=== PATIENT | female | born 1945 | race Caucasian/White ===

== ENCOUNTER 2023-07-05 14:07 | Outpatient (OUT) | payer MEDICARE, SELFPAY ==
--- NOTE | 2023-07-05 15:45 | PM.CN ---
Consult Note: HPI Data of Consult Patient: new to practice Consult date: 07/05/23 Requesting Physician: Adelfo Hansen MD Primary Care Provider: TRUE DAVIS Consult Narrative Reason for consult: Right hip, low back pain Narrative: this is a pleasant 78-year-old female who presents for evaluation. She notes worsening pain throughout her right hip that has been ongoing for years, but continues to worsen. She has had multiple lumbar surgeries, including fusion from L3-L5. She has undergone various injection modalities in the past, with limited relief. She engages in provider directed home exercises, with limited benefit. She otherwise denies adverse medication side effects or loss of bowel or bladder control. cc:: CC: Adelfo Hansen MD Review of Systems ROS Status of ROS 10 or more systems reviewed and unremarkable except as noted in history and below Meds Home Medications and Allergies Home Medications Medication Instructions Recorded Confirmed Type buprenorphine 5 mcg/hour weekly 1 patch transdermal QWEEK pain #4 07/05/23 Rx transdermal patch (Butrans) ea Exam Constitutional Common normals: no apparent distress, oriented x3 and healthy appearing Respiratory Common normals: normal respiratory effort Effort & inspection: able to speak in complete sentences Extremity Common normals: normal to inspection Other: tenderness to palpation throughout the right hip. Pain is elicited with flexion and extension of the right hip. Strength noted to be four out of five in the right quadriceps femoris. Neuro Common normals: oriented x3, CN's II-XII intact bilaterally and no focal motor deficits Psych Common normals: mental status grossly normal and cooperative Assessment and Plan Assessment and Plan (1) Lumbar postlaminectomy syndrome: (2) Osteoarthritis of right hip: Plan this is a pleasant 78-year-old female who presents for evaluation. She has failed physical and medical modalities, as listed above. Given her persistent right hip pain, I would like her to undergo a right hip x-ray for further information. She is in agreement with this plan. She may be a candidate for right hip injection or other spinal interventional modality at some point in the future. Medications were reviewed. I will have her try Butrans patch 5 mcg/h, as she has not had relief with many other modalities, including various muscle relaxants and neuropathic agents. She expressed understanding. She'll follow up after the imaging is completed.
== END 2023-07-05 14:08 | disposition home or self-care (01) ==
PROVIDERS: PCP Family Medicine; Visit Provider Anesthesiology
DX: M96.1 Postlaminectomy syndrome, not elsewhere classified (principal); M16.11 Unilateral primary osteoarthritis, right hip
CPT/HCPCS: G0463

== ENCOUNTER 2023-07-07 14:36 | Outpatient (OUT) | payer MEDICARE, SELFPAY ==
--- NOTE | 2023-07-07 14:50 | XR_ITS ---
The [address] [address] Patient Name: BOOKER DEJESUS MRN: [id number] date: 1945 Sex: F Assigned Patient Location: RAD Current Patient Location: [facility] Accession/Order Number: [id number] Exam Date: 07/07/2023 14:55 Report Date: 07/09/2023 13:19 At the request of: ANDRI GIEDRAITIS Procedure: XR hip RT min 2V EXAM: XR hip RT min 2V HISTORY: Right hip pain COMPARISON: None. TECHNIQUE: AP and lateral views of the right hip were obtained. FINDINGS/IMPRESSION: 1. There is mild joint space narrowing with marginal spurring at the right hip indicating osteoarthritis. 2. Mild enthesopathic changes are seen adjacent to the greater trochanter. 3. Surgical clips are seen at the right hemipelvis. Electronically authenticated by: JONAH FARMER Date: 07/09/2023 13:19
== END 2023-07-07 14:37 | disposition home or self-care (01) ==
PROVIDERS: PCP Family Medicine; Visit Provider Anesthesiology
DX: M25.551 Pain in right hip (principal)
CPT/HCPCS: 73502

== ENCOUNTER 2023-07-19 14:43 | Outpatient (OUT) | payer MEDICARE, SELFPAY ==
--- NOTE | 2023-07-19 16:03 | PM.CN ---
Consult Note: HPI Data of Consult Patient: new to practice Consult date: 07/19/23 Requesting Physician: Adelfo Hansen MD Primary Care Provider: TRUE DAVIS Consult Narrative Reason for consult: Right hip pain Narrative: Re 78yof who presents for assessment. Continues to have significant right hip pain. Right hip XR reviewed, significant for osteoarthritis. Continues to engage in provider directed home exercise program. Feels that butrans patch 5mcg/hr is somewhat beneficial, denies side effects. Gabapentin does not seem to help. cc:: CC: Adelfo Hansen MD Review of Systems ROS Status of ROS 10 or more systems reviewed and unremarkable except as noted in history and below Meds Home Medications and Allergies Home Medications Medication Instructions Recorded Confirmed Type buprenorphine 5 mcg/hour weekly 1 patch transdermal QWEEK pain #4 07/05/23 Rx transdermal patch (Butrans) ea acetaminophen 650 mg 1,300 mg PO Q8H PRN pain 07/07/23 07/07/23 History tablet,extended release (Arthritis Pain Relief (acetaminophen) ER) albuterol 90 mcg/actuation aerosol 90 mcg inhalation .every 4 hours 07/07/23 07/07/23 History inhaler PRN shortness of breath or wheezing alendronate 35 mg tablet 35 mg PO QWEEK 07/07/23 07/07/23 History amitriptyline 50 mg tablet 50 mg PO DAILY 07/07/23 07/07/23 History ascorbic acid (vitamin C) 500 mg 500 mg PO BID 07/07/23 07/07/23 History tablet,extended release (C Complex) aspirin 81 mg tablet,delayed 81 mg PO DAILY 07/07/23 07/07/23 History release (Adult Aspirin Regimen) atorvastatin 40 mg tablet 40 mg PO DAILY 07/07/23 07/07/23 History calcium carbonate 600 mg calcium 600 mg PO DAILY 07/07/23 07/07/23 History (1,500 mg) tablet (Calcium) carvedilol 25 mg tablet 25 mg PO BID 07/07/23 07/07/23 History cholecalciferol (vitamin D3) 50 200 mcg PO DAILY 07/07/23 07/07/23 History mcg (2,000 unit) tablet (Vitamin D3) cyclobenzaprine 10 mg tablet 10 mg PO QAM 07/07/23 07/07/23 History escitalopram oxalate 20 mg tablet 20 mg PO DAILY 07/07/23 07/07/23 History famotidine 20 mg tablet 20 mg PO DAILY 07/07/23 07/07/23 History fenofibrate 160 mg tablet 160 mg PO DAILY 07/07/23 07/07/23 History fexofenadine 180 mg tablet 180 mg PO DAILY 07/07/23 07/07/23 History gabapentin 600 mg tablet 600 mg PO TID 07/07/23 07/07/23 History hydralazine 100 mg tablet 100 mg PO TID 07/07/23 07/07/23 History awrtpzormtuej-wiiupzuipzoeb-ozbeyqzjgxaqn 2 cap PO 07/07/23 History 65 mg-100 mg-325 mg capsule levothyroxine 150 mcg capsule 150 mcg PO DAILY 07/07/23 07/07/23 History lisinopril 20 1 tab PO DAILY 07/07/23 07/07/23 History mg-hydrochlorothiazide 12.5 mg tablet magnesium 250 mg tablet 250 mg PO DAILY 07/07/23 07/07/23 History ksymetqf-bcw-dhzrl acid 0.4 1 tab PO DAILY 07/07/23 07/07/23 History mg-lycopene 300 mcg-lutein 250 mcg tablet (Centrum Silver) omeprazole 40 mg capsule,delayed 40 mg PO DAILY 07/07/23 07/07/23 History release oxybutynin chloride 10 mg 10 mg PO DAILY 07/07/23 07/07/23 History tablet,extended release 24 hr tizanidine 4 mg tablet 4 mg PO BID PRN muscle spasticity 07/07/23 07/07/23 History buprenorphine 7.5 mcg/hour weekly 1 patch transdermal Q7D #4 ea 07/19/23 Rx transdermal patch (Butrans) buprenorphine 7.5 mcg/hour weekly 1 patch transdermal QWEEK #4 ea 07/19/23 Rx transdermal patch (Butrans) Allergies Allergy/AdvReac Type Severity Reaction Status Date / Time adhesive tape Allergy Verified 07/07/23 08:13 Influenza Virus Vaccines Allergy Verified 07/07/23 08:13 lincomycin [From Lincocin] Allergy Verified 07/07/23 08:13 Penicillins Allergy Verified 07/07/23 08:13 Exam Constitutional Common normals: no apparent distress, oriented x3 and healthy appearing Respiratory Common normals: normal respiratory effort Effort & inspection: able to speak in complete sentences Back & Pelvis Other: Tender to palpation in right hip. Pain elicited with extension, lateral rotation, abduction. Gait nonantalgic. Extremity Common normals: normal to inspection Neuro Common normals: oriented x3, CN's II-XII intact bilaterally and no focal motor deficits Psych Common normals: mental status grossly normal and cooperative Assessment and Plan Assessment and Plan (1) Osteoarthritis of right hip: (2) Lumbar postlaminectomy syndrome: Plan Pleasant 78yof who presents for assessment. COntinues to have right hip pain. Imaging reviewed, as noted. Given symptoms and imaging, will have her scheduled for right hip injection. She is in agreement. Medications reviewed, will have her butrans increased to 7.5mcg/hr. She expressed understanding. Follow up after procedure.
== END 2023-07-19 14:44 | disposition home or self-care (01) ==
PROVIDERS: PCP Family Medicine; Visit Provider Anesthesiology
DX: M16.11 Unilateral primary osteoarthritis, right hip (principal); M96.1 Postlaminectomy syndrome, not elsewhere classified
CPT/HCPCS: G0463

== ENCOUNTER 2023-09-06 08:42 | Day surgery (SDC) | payer MEDICARE, SELFPAY ==
[2023-09-06 09:10] VITALS: BP 126/75; PULSE 82; RESP 14; TEMP 36.3; O2SAT 97
[2023-09-06 09:44] VITALS: BP 143/69; PULSE 85; RESP 18; O2SAT 96
[2023-09-06] MEDS: BUPIVACAINE HCL 0.25% PF 25 MG/10 ML VIAL 4 ML INJ (09:45)
[2023-09-06] MEDS: TRIAMCINOLONE ACETONIDE 40 MG/ML VIAL IM (09:46)
[2023-09-06] MEDS: LIDOCAINE HCL 2% PF 100 MG/5 ML VIAL INJ (09:46)
[2023-09-06] MEDS: IOHEXOL 240 MG/ML - 10 ML VIAL INJ (09:46)
--- NOTE | 2023-09-06 09:47 | W.PM.PROCNOT ---
Date of procedure: 09/06/23 Pre-op diagnosis: Right hip osteoarthritis Post-op diagnosis: same as pre-op Procedure: Procedure: Right hip injection Medications: Bupivacaine 0.25% 4cc, kenalog 40mg I explained the details of the procedure to the patient including the risks, benefits and alternatives. We had an informed discussion and the patient verbalized understanding and signed the consent form. All questions were answered appropriately.? A time out was performed.? After obtaining a comfortable supine position, the skin overlying the hip, subtrochanteric region, and joint space were prepped with alcohol. A sterile syringe containing the above medication was attached to a 25 guage, 3.5 inch spinal needle under strict aseptic technique. X ray was used to identify the joint space and the femoral neck on the right side.? The needle was than advanced through the subcutaneous tissue after local injection of 1% lidocaine.? The contents of the syringe were gently injected without any resistance into the joint space after contrast (isovue) outlined the appropriate area. The needle was removed and pressure was applied to the injection site to decrease the incidence of ecchymosis and hematoma formation.? A sterile bandage was applied. Post procedural instructions were given to the patient. Anesthesia: Local Surgeon: Adelfo Hansen Pathology: none sent Condition: stable Disposition: no change
== END 2023-09-06 09:53 | disposition home or self-care (01) ==
PROVIDERS: PCP Family Medicine; Visit Provider Anesthesiology
DX: M16.11 Unilateral primary osteoarthritis, right hip (principal)
CPT/HCPCS: 20610; 77002; Q9966

== ENCOUNTER 2023-09-23 13:22 | Outpatient (OUT) | payer MEDICARE, SELFPAY ==
--- NOTE | 2023-09-23 13:48 | PM.CN ---
Consult Note: HPI Data of Consult Patient: known to practice within the last 3 years Requesting Physician: Nisa Galarza NP Primary Care Provider: TRUE DAVIS Consult Narrative Reason for consult: f/u Narrative: Angela Ruth a pleasant 78 year old female presents for evaluation and management of chronic low back and right hip pain. Reports 75% pain relief and functional improvement after right hip injection. Patient reporting pain in mid to low back 4-5/10 today. Tolerating current medication regimen well without side effects. cc:: CC: Nisa Galarza NP Review of Systems ROS Status of ROS 10 or more systems reviewed and unremarkable except as noted in history and below Musculoskeletal Reports: back pain Meds Home Medications and Allergies Home Medications Medication Instructions Recorded Confirmed Type buprenorphine 5 mcg/hour weekly 1 patch transdermal QWEEK pain #4 07/05/23 09/06/23 Rx transdermal patch (Butrans) ea acetaminophen 650 mg 1,300 mg PO Q8H PRN pain 07/07/23 09/06/23 History tablet,extended release (Arthritis Pain Relief (acetaminophen) ER) albuterol 90 mcg/actuation aerosol 90 mcg inhalation .every 4 hours 07/07/23 09/06/23 History inhaler PRN shortness of breath or wheezing alendronate 35 mg tablet 35 mg PO QWEEK 07/07/23 09/06/23 History amitriptyline 50 mg tablet 50 mg PO DAILY 07/07/23 09/06/23 History ascorbic acid (vitamin C) 500 mg 500 mg PO BID 07/07/23 09/06/23 History tablet,extended release (C Complex) aspirin 81 mg tablet,delayed 81 mg PO DAILY 07/07/23 09/06/23 History release (Adult Aspirin Regimen) atorvastatin 40 mg tablet 40 mg PO DAILY 07/07/23 09/06/23 History calcium carbonate 600 mg calcium 600 mg PO DAILY 07/07/23 09/06/23 History (1,500 mg) tablet (Calcium) carvedilol 25 mg tablet 25 mg PO BID 07/07/23 09/06/23 History cholecalciferol (vitamin D3) 50 200 mcg PO DAILY 07/07/23 09/06/23 History mcg (2,000 unit) tablet (Vitamin D3) cyclobenzaprine 10 mg tablet 10 mg PO QAM 07/07/23 09/06/23 History escitalopram oxalate 20 mg tablet 20 mg PO DAILY 07/07/23 09/06/23 History famotidine 20 mg tablet 20 mg PO DAILY 07/07/23 09/06/23 History fenofibrate 160 mg tablet 160 mg PO DAILY 07/07/23 09/06/23 History fexofenadine 180 mg tablet 180 mg PO DAILY 07/07/23 09/06/23 History hydralazine 100 mg tablet 100 mg PO TID 07/07/23 09/06/23 History cfqvsyicgvubo-ahtcpchbcgweq-jyccbykvwzkbn 2 cap PO 07/07/23 History 65 mg-100 mg-325 mg capsule levothyroxine 150 mcg capsule 150 mcg PO DAILY 07/07/23 09/06/23 History lisinopril 20 1 tab PO DAILY 07/07/23 09/06/23 History mg-hydrochlorothiazide 12.5 mg tablet magnesium 250 mg tablet 250 mg PO DAILY 07/07/23 09/06/23 History wdzgwxdv-chd-goibq acid 0.4 1 tab PO DAILY 07/07/23 09/06/23 History mg-lycopene 300 mcg-lutein 250 mcg tablet (Centrum Silver) omeprazole 40 mg capsule,delayed 40 mg PO DAILY 07/07/23 09/06/23 History release oxybutynin chloride 10 mg 10 mg PO DAILY 07/07/23 09/06/23 History tablet,extended release 24 hr tizanidine 4 mg tablet 4 mg PO BID PRN muscle spasticity 07/07/23 09/06/23 History buprenorphine 7.5 mcg/hour weekly 1 patch transdermal Q7D #4 ea 07/19/23 09/06/23 Rx transdermal patch (Butrans) buprenorphine 7.5 mcg/hour weekly 1 patch transdermal QWEEK #4 ea 07/19/23 09/06/23 Rx transdermal patch (Butrans) buprenorphine 7.5 mcg/hour weekly 1 patch transdermal Q7D #4 ea 08/24/23 09/06/23 Rx transdermal patch (Butrans) Allergies Allergy/AdvReac Type Severity Reaction Status Date / Time adhesive tape Allergy Verified 09/06/23 09:06 Influenza Virus Vaccines Allergy Verified 09/06/23 09:06 lincomycin [From Lincocin] Allergy Verified 09/06/23 09:06 Penicillins Allergy Verified 09/06/23 09:06 Exam Constitutional Documenting provider has reviewed patient's vital signs: yes Common normals: no apparent distress, oriented x3, healthy appearing, alert and well nourished General appearance: cooperative HENMT Common normals: normocephalic, hearing grossly normal bilaterally and moist oral mucous membranes Head and scalp: normocephalic Eye Common normals: PERRL Pupil: PERRL Neck & C-Spine Common normals: full ROM General: normal visual inspection Chest Common normals: inspection of chest normal Respiratory Common normals: normal respiratory effort, no retractions and no use of accessory muscles Back & Pelvis Lumbar spine/lower back: ROM limited, pain with ROM and straight leg raise negative bilaterally Neuro Common normals: oriented x3, CN's II-XII intact bilaterally, moves all extremities, no focal motor deficits, no sensory deficits noted and deep tendon reflexes 2+ bilaterally Sensorium/orientation: alert Motor exam: strength 5/5 throughout and no movement abnormalities noted Psych Common normals: mental status grossly normal, thought process normal, cooperative, affect normal, speech normal and activity/motor behavior normal Speech: normal speech Thought process: normal thought process Results Additional Findings Additional findings: I have checked an [place] report on this patient today and there are no aberrancies noted in the prescribing history.?? A drug screen was completed and reviewed within the last year, and if there has not been a drug screen completed we ordered one today to monitor higher risk, state monitored pain medication use. As part of providing excellent, safe, comprehensive care, the following was completed at our patient's visit: 1. A medication reconciliation and review to ensure accurate knowledge of current/active medications, including asking our patients to inform us about any jvtc-dua-ugjkorq medications or herbal remedies/nutritional supplements/alternative remedies. 2. A review to specifically ensure our patients have had annual screening for: elevated body mass index (BMI), tobacco use, screening for depression, and screening for unhealthy alcohol use. When screening is concerning, patients are provided with education and the specific recommendation to discuss the concerning health issue and treatment options with their primary care provider. Assessment and Plan Assessment and Plan (1) Lumbar postlaminectomy syndrome: (2) Osteoarthritis of right hip: (3) Muscle spasm: (4) Chronic prescription opiate use: Assessment and Plan: I feel these medications are improving the patient's quality of life and allow them to tolerate activities of daily living as well as participate in recreational activity.? The patient does not report intolerable side effects. The patient is NOT opioid naive and non-pharmacologic and non-opioid treatment has failed to significantly relieve the patient's pain and improve functionality. The patient has a diagnosis that is related to a somatic or visceral pain etiology. ? ?? I reviewed with the patient the potential risks and side effects with the use of? opioid medications including but not limited to respiratory depression,? sedation, and even . I verified the patient has access to naloxone should? these effects occur. I advised the patient to avoid the use of any other? sedation substances including alcohol, THC, and benzodiazepines while? taking opioid medications due to the risk of compounding side effects and? detrimental outcomes. I reviewed the [employer], pain treatment agreement, urine? drug screen, and opioid start talking forms. The patient was advised to let? their family know they had Naloxone in case they would need to administer? the medication.? ?? A drug screen was completed within the last year, and no aberrancies were noted regarding their use of controlled substances. The patient understands they are subject to the terms and conditions of the pain contract that they have signed. ? ?? I have checked an [place] report on this patient today and there are no aberrancies noted in the prescribing history.? Plan increase tizanidine to 4mg during the day PRN, continue 8mg HS continue butrans 5mcg patch weekly tolerating well without side effects TENS unit for low back spasms and myalgia f/u 3 months for medication management
== END 2023-09-23 13:23 | disposition home or self-care (01) ==
PROVIDERS: PCP Family Medicine; Visit Provider Nurse Practitioner
DX: M96.1 Postlaminectomy syndrome, not elsewhere classified (principal); M16.11 Unilateral primary osteoarthritis, right hip; M62.838 Other muscle spasm; Z79.899 Other long term (current) drug therapy
CPT/HCPCS: G0463

== ENCOUNTER 2023-12-30 10:58 | Outpatient (OUT) | payer MEDICARE, SELFPAY ==
--- OUTSIDE RECORDS SUMMARY | 2023-12-30 11:20 | XMS_ITS | CCD ---
Author Name Unknown Address [address] [place] [address] Organization [facility] Care Team Providers Care Emissions Testing And Repair Technician Name Role Phone KALIA GILL Unavailable Unavailable RENA HERNANDEZ Unavailable Unavailabl e KALIA GILL H Unavailable Unavailable LENNY PEDRAZA Unavailable Unavailable AUDREY HORN Unavailable Unavailable AUDREY HORN Unavailable Unavailable LENNY PEDRAZA Unavailable Unavailable BAI CAO Primary Care Unavailable BIA CAO Primary Care Unavailable Jade GARCIA, Adelfo Arredondo Attending Unavailable Jade GARCIA, Adelfo Arredondo Attending Unavailable Jade GARCIA, Adelfo Arredondo Attending Unavailable LALIT RICHARD Attending Unavailable NASH BIA F Referring Unavailable BIA CAO Primary Care Unavailable JOHN JOHNSON Referring Unavailable BIA CAO Primary Care Unavailable Nash GARCIA, Bia Mccormick Primary Care Provider Jacob Viveros Unavailable Unavailable Bia Cao MD Primary Care Provider BIA CAO Attending Unavailable BIA CAO Attending Unavailable SANTO GARCIA Attending Unavailable ELMER PETTIT Attending Unavailable NASH, BIA F Referring Unavailable RIA SNYDER Attending Unavailable NASH BIA F Referring Unavailable RIA SNYDER Attending Unavailable NASH BIA F Referring Unavailable BIA CAO F Attending Unavailable ELMER PETTIT Attending Unavailable NASH, BIA F Referring Unavailable RIA SNYDER Attending Unavailable NASH, BIA F Referring Unavailable ELMER PETTIT Attending Unavailable NASH, BIA F Referring Unavailable RIA SNYDER Attending Unavailable NASH BIA F Referring Unavailable RIA SNYDER Attending Unavailable NASH, BIA F Referring Unavailable Allergies Allergy Classification Reported Allergen(s) Allergy Type Date of Onset Reaction(s) Facility (4 sources) Adhesive agent; Translations: [ADHESIVE] Propensity to adverse reactions to drug (disorder) 11-04-20 16 [facility] Repository (5 sources) aspartame; Translations: [ASPARTAME] Drug Allergy 02-13-20 17 Other (See Comments), Unknown [facility] Repository (5 sources) clavulanic acid; Translations: [CLAVULANIC ACID] Drug Allergy 02-13-20 17 [facility] Repository (1 source) egg white (chicken) allergenic extract; Translations: [EGG WHITE] Drug Allergy 08-14-20 11 [facility] Repository (5 sources) lincomycin; Translations: [LINCOMYCIN] Drug Allergy 08-14-20 11 Anaphylaxis, [facility] Repository (4 sources) Lincosamides (Antibiotic); Translations: [LINCOSAMIDES] Propensity to adverse reactions to drug (disorder) 02-13-20 17 Anaphylaxis [facility] Repository (4 sources) oxaprozin; Translations: [OXAPROZIN] Drug Allergy 11-04-20 16 [facility] Repository (5 sources) Penicillins; Translations: [PENICILLINS] Propensity to adverse reactions to drug (disorder) 11-04-20 16 [facility] Repository (4 sources) INFLUENZA VIRUS VACCINES; Translations: [INFLUENZA VIRUS VACCINES] Propensity to adverse reactions to drug (disorder) 02-13-20 17 Swelling [facility] Repository (5 sources) CLEMIZOLE; Translations: [CLEMIZOLE] Propensity to adverse reactions to drug (disorder) 02-13-20 17 [facility] Repository (5 sources) AMOXICILLIN-POT CLAVULANATE; Translations: [AMOXICILLIN-POT CLAVULANATE] Propensity to adverse reactions to drug (disorder) 08-14-20 11 [facility] Repository (3 sources) chicken allergenic extract; Translations: [POULTRY] Drug Allergy 03-02-20 23 [facility] Repository (3 sources) egg shell membrane; Translations: [EGGSHELL MEMBRANE] Propensity to adverse reactions to food (disorder) 11-04-20 16 [facility] Repository (4 sources) Indomethacin; Translations: [INDOMETHACIN] Drug Allergy 05-02-20 21 Hypotension, Unknown [facility] Repository (4 sources) Sulfamethoxazole / Trimethoprim; Translations: [SULFAMETHOXAZOLE-T RIMETHOPRIM] Drug Allergy 10-22-20 Hives [facility] Repository (3 sources) Sulfonamides (Antibiotic); Translations: [SULFA (SULFONAMIDE ANTIBIOTICS)] Propensity to adverse reactions to drug (disorder) 11-11-20 22 Hives [facility] Repository (4 sources) OTHER; Translations: [OTHER] Propensity to adverse reactions (disorder) 02-13-20 17 Other (See Comments), Swelling [facility] Repository (1 source) Influenza Vaccines Drug Allergy 06-04-20 23 Rash [facility] (1 source) Lincomycin Drug Allergy 12-01-19 22 Unknown [facility] (1 source) Sulfonamides (Antibiotic) Drug Intolerance 11-11-20 [facility] (1 source) Eggs Or Egg-Derived Products Drug Allergy 08-14-20 11 Swelling, Unknown [facility] (1 source) Poultry Meal Propensity to adverse reactions 03-02-20 [facility] (1 source) Wound Dressing Adhesive Drug Allergy 06-04-20 Rash [facility] Medications Current Medications Medication Drug Class(es) Dates Sig (Normalized) Sig (Original) acetaminophen 500 mg oral tablet (1 source) take 2 tablets by mouth every six hours as needed for pain acetaminophen (TYLENOL EXTRA STRENGTH) 500 mg tablet Take 2 tablets (1,000 mg total) by mouth every 6 (six) hours as needed for pain. 0 Active acetaminophen 250 mg / aspirin 250 mg / caffeine 65 mg oral tablet (1 source) Platelet Aggregation Inhibitor, Nonsteroidal Anti-inflammatory Drug, Central Nervous System Stimulant, Methylxanthine take 1 tablet by mouth every six hours as needed for headache aspirin-acetaminop hen-caffeine (EXCEDRIN MIGRAINE) 250-250-65 mg per tablet Take 1 tablet by mouth every 6 (six) hours as needed for headaches. 0 Active acetaminophen 325 mg / butalbital 50 mg / caffeine 40 mg oral tablet (2 sources) Barbiturate, Central Nervous System Stimulant, Methylxanthine Start: 04-23-2023 take 1 tablet by mouth every four hours as needed butalbital-acetami nophen-caffeine 50-325-40 MG tablet Take 1 tablet by mouth every 4 (four) hours if needed. 0 04/23/2023 Active [id number] 200 actuat albuterol 0.09 mg/actuat metered dose inhaler (2 sources) beta2-Adrenergic Agonist Start: 06-04-2023 take 2 puff(s) by inhalation every four hours albuterol HFA 90 mcg/act inhaler Indications: Mild intermittent asthma without complication (CMS/HCC) Inhale 2 puffs every 4 (four) hours. 18 g 11 06/04/2023 Active take 2 puff(s) by in halation every four hours as needed for wheezing albuterol (PROVENTIL HFA;VENTOLIN HFA) 9 0 mcg/actuation inhaler Inhale 2 puffs every 4 (four) hours as needed for wheezing or shortness of breath. PRO AIR 0 Active alendronic acid 70 mg oral tablet (3 sources) Bisphosphonate Start: 12-13-2023 take 1 tablet by mouth in the morning alendronate (FOSAMAX) 70 mg tablet Take 1 tablet (70 mg total) by mouth every 7 days. In a.m. with water on empty stomach, nothing else by mouth and remain upright for 30min. STOP old dose 90 tablet 3 12/13/2023 Active Start: 07-21-2023 alendronate (F OSAMAX) 35 mg tablet take 1 tablet by mouth every 7 days IN THE MORNING 30 MINUTES before FIRST FOOD, BEVERAGE, OR MEDICATION with 6 to 8 ounce(s) OF WATER 12 tablet 3 07/21/2023 Active take 1 tablet by margo th once daily alendronate (Fosamax) 35 MG tablet 1 tablet 30 minutes before the first food, beverage or medicine of the day with plain water Orally weekly 0 Active amitriptyline hydrochloride 50 mg oral tablet (2 sources) Tricyclic Antidepressant Start: 11-17-2023 End: 11-16-2024 take 1 tablet by mouth at bedtime amitriptyline (Elavil) 50 MG tablet Indications: Primary insomnia Take 1 tablet (50 mg) by mouth at bedtime 90 tablet 3 11/17/2023 11/16/2024 Active ascorbic acid 1000 mg oral tablet (2 sources) Vitamin C Ascorbic Acid (vitamin C) 1000 MG tablet 1 (one) time each day at the same time. 0 Active take 2 tablets by mouth in the m orning ascorbic acid (VITAMIN C) 500 mg tablet Take 2 tablets (1,000 mg total) by mouth in the morning. 0 Active aspirin 81 mg delayed release oral tablet (2 sources) Platelet Aggregation Inhibitor, Nonsteroidal Anti-inflammatory Drug take 1 tablet by mouth in the morning aspirin 81 MG EC tablet Take 81 mg by mouth in the morning. 0 Active atorvastatin 40 mg oral tablet (2 sources) HMG-CoA Reductase Inhibitor Start: 2021 take 1 tablet by mouth in the morning atorvastatin (LIPITOR) 40 mg tablet Take 1 tablet (40 mg total) by mouth in the morning. 0 03/15/2022 Active benzonatate 200 mg oral capsule (1 source) Non-narcotic Antitussive Start: 2023 take 1 capsule by mouth three times daily as needed for cough benzonatate (TESSALON PERLES) 200 mg capsule TAKE 1 CAPSULE BY MOUTH THREE TIMES A DAY NEEDED FOR COUGH FOR UP TO 7 DAYS 0 11/23/2023 Active 168 hr buprenorphine 0.0075 mg/hr transdermal system (2 sources) Partial Opioid Agonist Start: 2022 apply 1 dose transdermal route every week buprenorphine (BUTRANS) 7.5 mcg/hour patch weekly Place 1 patch on the skin once a week. 0 07/20/2023 Active calcium carbonate 1500 mg / cholecalciferol 800 unt oral tablet (2 sources) Vitamin D Calcium Carb-Cholecalcifer ol 600-20 MG-MCG tablet Take 600 mg by mouth at bedtime. 0 Active carvedilol 25 mg oral tablet (2 sources) alpha-Adrenergic To, beta-Adrenergic To Start: 2022 take 1 tablet by mouth in the morning, then take 1 tablet by mouth at bedtime carvediloL (COREG) 25 mg tablet Indications: Essential hypertension Take 1 tablet (25 mg total) by mouth in the morning and 1 tablet (25 mg total) before bedtime. 180 tablet 3 12/04/2022 Active carvedilol (Core g) 25 MG tablet every 12 (twelve) hours. 0 Active cholecalciferol 0.025 mg ora l tablet (2 sources) Vitamin D cholecalciferol (Vitamin D-3) 25 MCG (1000 UT) tablet 1,000 Units in the morning. Take before meals. 0 Active cholecalciferol, vitamin D3, (VITAMIN D3) 1,000 units tablet Indications: vitamin D deficiency 1 tablet (1,000 Units total) before breakfast Indications: low vitamin D levels. 0 Active ciprofloxacin 500 mg oral tablet (1 source) Quinolone Antimicrobial Start: 11-23-2023 take 1 tablet by mouth at bedtime ciprofloxacin HCl (CIPRO) 500 mg tablet TAKE 1 TABLET (500 MG) BY MOUTH IN THE MORNING AND BEFORE BEDTIME FOR 7 DAYS 0 11/23/2023 Active escitalopram 20 mg oral tablet (2 sources) Serotonin Reuptake Inhibitor Start: 12-15-2023 End: 12-14-2024 take 1 tablet by mouth at mealtime escitalopram (Lexapro) 20 MG tablet Indications: Anxiety Take 1 tablet (20 mg) by mouth in the evening. Take with meals 100 tablet 3 12/15/2023 12/14/2024 Active take 1 tablet by margo th once daily at dinner escitalopram (LEXAPRO) 20 mg tablet Indications: major depressive disorder Take 1 tablet (20 mg total) by mouth daily with dinner Indications: major depressive disorder. 0 Active famotidine 20 mg oral tablet (2 sources) Histamine-2 Receptor Antagonist Start: 11-29-2023 take 1 tablet by mouth once daily famotidine (PEPCID) 20 mg tablet Take 1 tablet (20 mg total) by mouth nightly. 90 tablet 3 11/29/2023 Active fenofibrate 160 mg oral tablet (2 sources) Peroxisome Proliferator Receptor alpha Agonist Start: 10-26-2023 End: 10-25-2024 take 1 tablet by mouth in the morning fenofibrate (Triglide) 160 MG tablet Indications: Hyperlipidemia, unspecified hyperlipidemia type (CMS/HCC) Take 1 tablet (160 mg) by mouth in the morning. 100 tablet 3 10/26/2023 10/25/2024 Active fexofenadine hydrochloride 180 mg oral tablet (2 sources) Histamine-1 Receptor Antagonist fexofenadine (Ally Allergy) 180 MG tablet 1 (one) time each day at the same time. 0 Active fluticasone propionate 0.05 mg/actuat metered dose nasal spray (2 sources) Corticosteroid Start: 08-23-2023 End: 08-22-2024 take 1-2 spray(s) nasal route in the morning fluticasone (Flonase) 50 MCG/ACT nasal spray Indications: Allergic rhinitis due to pollen, unspecified seasonality Administer 1-2 sprays into each nostril in the morning. Shake gently. Before first use, prime pump. After use, clean tip and replace cap.. 16 g 2 08/23/2023 08/22/2024 Active Start: 08-23-2023 End: 08-22-2024 fluticasone propionate (FLON ASE) 50 mcg/actuation nasal spray 1-2 sprays in the morning. 0 08/23/2023 08/22/2024 Active hydrALAZINE hydrochloride 100 mg oral tablet (2 sources) Arteriolar Vasodilator Start: 07-26-2023 take 1 tablet by mouth once daily hydrALAZINE (APRESOLINE) 100 mg tablet Indications: Essential hypertension Take 1 tablet (100 mg total) by mouth Daily at 0700. Take one three times a day may take an additional 50mg daily if Systolic BP is greater than 170 120 tablet 11 08/05/2023 Active hydroCHLOROthiazide 12.5 mg / lisinopril 20 mg oral tablet (2 sources) Thiazide Diuretic, Angiotensin Converting Enzyme Inhibitor Start: 12-06-2023 take 1 tablet by mouth in the morning lisinopril-hydroC HLOROthiazide 20-12.5 MG tablet Indications: Essential hypertension (CMS/HCC) Take 1 tablet by mouth in the morning. 100 tablet 3 12/06/2023 Active Start: 06-01-2023 take 1 tablet by once in the morning lisinopril-hydroCHLOROthiazide (ZESTORET IC) 20-12.5 mg per tablet Indications: Essential hypertension Take 1 tablet by mouth in the morning. 90 tablet 3 06/01/2023 Active L.acidoph/B.animalis/B.longu m (FLORAJEN DIGESTION ORAL) (1 source) take 1 tablet by mouth in the morning L.acidoph/B.animalis/B.longum (FLORAJEN DIGESTION ORAL) Take 1 tablet by mouth in the morning. 0 Active lactobacillus acidophilus 16 mg oral capsule (1 source) Lactobacillus (F raven Women) capsule as directed Orally 0 Active levothyroxine sodium 0.15 mg oral tablet (2 sources) yrox ine Star t: 01-21 take 1 tablet by mouth in the morning levothyroxine (Synthroid, Levoxyl) 150 MCG tablet 1 tablet in the morning on an empty stomach Orally Wed thru Sat, skip Wednesday 0 02/10/2023 Active Magnesium (2 sources) take 500 mg by mouth in the morning MAGNESIUM PO Take 500 mg by mouth in the morning. 0 Active take 2 tablets by mouth in the m orning magnesium 250 mg tablet Indications: for migraine prevention Take 2 tablets (500 mg total) by mouth in the morning. Indications: for migraine prevention. At supper time. 0 Active meclizine hydrochloride 25 mg oral tablet (1 source) Antiemetic meclizine (Antiv ert) 25 MG tablet Take 25 mg by mouth. 0 Active multivitamin with minerals (Centrum) 9-200 mg-mcg tablet split tablet (1 source) multivitamin wit h minerals (Centrum) 9-200 mg-mcg tablet split tablet multivitamin Multiple Vitamins 0 Active NIFEdipine 60 mg osmotic 24 hr extended release oral tablet (2 sources) Dihydropyridine Calcium Channel To Start: 2022 take 1 tablet by mouth every twenty-four hours in the morning NIFEdipine XL (Procardia XL) 60 MG 24 hr tablet Take 60 mg by mouth in the morning. 0 04/23/2023 Active omeprazole 40 mg delayed release oral capsule (2 sources) Proton Pump Inhibitor Start: 2023 take 1 capsule by mouth in the morning omeprazole (PriLOSEC) 40 mg capsule Indications: Gastroesophageal reflux disease, unspecified whether esophagitis present Take 1 capsule (40 mg total) by mouth in the morning. 180 capsule 3 11/29/2023 Active 24 hr oxybutynin chloride 10 mg extended release oral tablet (2 sources) Cholinergic Muscarinic Antagonist Start: 2019 take 1 tablet by mouth once daily at breakfast oxybutynin XL (DITROPAN-XL) 10 mg 24 hr tablet Take 1 tablet (10 mg total) by mouth daily with breakfast. 0 11/21/2020 Active take 1 tablet by margo th every twenty-four hours in the morning oxybutynin XL (Ditropan-XL) 10 MG 24 hr tablet Take 10 mg by mouth in the morning. 0 Active therapeutic multivitamin (THERAGRAN) tablet (1 source) take 1 tablet by mouth once daily at dinner therapeutic multivitamin (THERAGRAN) tablet Take 1 tablet by mouth daily with dinner. 0 Active tiZANidine 4 mg oral tablet (2 sources) Central alpha-2 Adrenergic Agonist Start: 3 take 2 tablets by mouth once daily tiZANidine (ZANAFLEX) 4 mg tablet Take 2 tablets (8 mg total) by mouth nightly. 0 03/03/2023 Active take 1 tablet by mouth once halley y tiZANidine (Zanaflex) 4 MG tablet take 0.5 to 2 tablets by mouth nightly 0 Active ubrogepant 100 mg oral tablet (2 sources) Ubrogepant (Ubre lvy) 100 MG tablet 1 (one) time each day at the same time. 0 Active zafirlukast 20 mg oral tablet (2 sources) Leukotriene Receptor Antagonist Start: 4 End: 5 take 1 tablet by mouth in the morning zafirlukast (Accolate) 20 MG tablet Indications: Moderate persistent asthma, unspecified whether complicated (CMS/HCC) Take 1 tablet (20 mg) by mouth in the morning and 1 tablet (20 mg) before bedtime. 180 tablet 3 12/15/2023 12/14/2024 Active Start: 10-18-2021 take 1 tablet by margo th in the morning, then take 1 tablet by mouth at bedtime zafirlukast (ACCOLATE) 20 mg tablet Take 1 tablet (20 mg total) by mouth in the morning and 1 tablet (20 mg total) before bedtime. 0 10/18/2021 Active Problems Active Problems Problem Classification Problem Date Documented Da te Episodic/Chronic Asthma (1 source) Asthma; Translations: [Unspecified asthma, uncomplicated] Onset: 6 06-04-2023 Chronic Chronic kidney disease (1 source) Chronic kidney disease stage 3B ; Translations: [Stage 3b chronic kidney disease (CKD)] Onset: 3 06-04-2023 Chronic Complications of surgical procedures or medical care (3 sources) Drug-induced hypotension; Translations: [Hypotension due to drugs] Onset: 1 05-23-2021 Episodic Conduction disorders (1 source) First degree atrioventricular block; Translations: [Atrioventricular block, first degree] Onset: 1 06-04-2023 Chronic Disorders of lipid metabolism (3 sources) Hyperlipidemia; Translations: [Other hyperlipidemia] Onset: 5 10-26-2017 Chronic Esophageal disorders (3 sources) Gastro-esophageal reflux disease without esophagitis; Translations: [Gastroesophageal reflux disease without esophagitis] Onset: 1 09-15-2021 Chronic Essential hypertension (2 sources) Essential hypertension; Translations: [Essential (primary) hypertension] Onset: 3 03-02-2023 Chronic Fracture of upper limb (1 source) Displaced fracture of proximal phalanx of left little finger, subsequent encounter for fracture with routine healing; Translations: [Displaced fracture of proximal phalanx of left little finger, subsequent encounter for fracture with routine healing] Onset: 2 Episodic Genitourinary symptoms and ill-defined conditions (1 source) Mixed urinary incontinence; Translations: [Mixed incontinence] Onset: 0 06-04-2023 Chronic Malaise and fatigue (2 sources) Asthenia; Translations: [Weakness] Onset: 6 11-04-2016 Episodic Miscellaneous mental health disorders (2 sources) Psychophysiologic insomnia; Translations: [Psychophysiologic insomnia] Onset: 9 12-12-2018 Chronic Mood disorders (4 sources) Depressive disorder; Translations: [Other specified depressive episodes] Onset: 7 02-12-2017 Chronic Nausea and vomiting (1 source) Postoperative nausea and vomiting; Translations: [Nausea with vomiting, unspecified] 06-24-2021 Episodic Osteoarthritis (1 source) Osteoarthritis of right knee joint; Translations: [Unilateral primary osteoarthritis, right knee] Onset: 1 06-04-2023 Chronic Osteoporosis (3 sources) Age-related osteoporosis without current pathological fracture; Translations: [Senile osteoporosis] Onset: 0 Resolved: 3 06-04-2023 Chronic Other and ill-defined heart disease (1 source) Diastolic dysfunction; Translations: [Other ill-defined heart diseases] Onset: 1 05-23-2021 Chronic Other and ill-defined heart disease (1 source) Left ventricular hypertrophy; Translations: [Cardiomegaly] Onset: 1 05-23-2021 Chronic Other connective tissue disease (1 source) Cramp in lower limb; Translations: [Sleep related leg cramps] Onset: 3 06-04-2023 Chronic Other connective tissue disease (1 source) Trigger finger, right ring finger; Translations: [Trigger finger, right ring finger] Onset: 8 Episodic Other connective tissue disease (1 source) Pain in left hand; Translations: [Pain in left hand] Onset: 2 Episodic Other gastrointestinal disorders (2 sources) Chronic idiopathic constipation; Translations: [Chronic idiopathic constipation] Onset: 9 07-10-2019 Chronic Other hereditary and degenerative nervous system conditions (2 sources) Essential tremor; Translations: [Essential tremor] Onset: 9 12-12-2018 Chronic Other injuries and conditions due to external causes (2 sources) History of fall; Translations: [History of falling] Onset: 3 12-23-2023 Episodic Other nervous system disorders (1 source) Other chronic pain; Translations: [Other chronic pain] Onset: 8 Chronic Other nervous system disorders (1 source) Chronic pain syndrome; Translations: [Chronic pain syndrome] Onset: 8 2018 Chronic Other nervous system disorders (1 source) Carpal tunnel syndrome; Translations: [Carpal tunnel syndrome, unspecified upper limb] Onset: 1 10-28-2021 Chronic Spondylosis; intervertebral disc disorders; other back problems (10 sources) Prolapsed lumbar intervertebral disc; Translations: [Other intervertebral disc displacement, lumbar region] Onset: 1 Resolved: 3 01-07-2017 Chronic Thyroid disorders (2 sources) Acquired hypothyroidism; Translations: [Hypothyroidism, unspecified] Onset: 9 03-02-2023 Chronic Past or Other Problems Problem Classification Problem Date Documented Da te Episodic/Chronic Acute and unspecified renal failure (1 source) Acute injury of kidney; Translations: [Acute kidney failure, unspecified] Onset: 03-02-2023 03-02-2023 Episodic Acute cerebrovascular disease (1 source) Hematoma of subdural space of neuraxis; Translations: [SDH (subdural hematoma)] Onset: 01-04-2018 Resolved: 07-01-2021 07-01-2021 Chronic Adjustment disorders (1 source) Adjustment disorder with anxious mood; Translations: [Adjustment disorder with anxiety] Onset: 05-04-2023 Resolved: 10-24-2023 10-24-2023 Chronic Calculus of urinary tract (2 sources) Kidney stone; Translations: [Calculus of kidney] Onset: 03-02-2023 03-02-2023 Episodic Headache; including migraine (2 sources) Migraine without aura, not refractory ; Translations: [Migraine without aura, not intractable, without status migrainosus] Onset: 12-12-2018 Resolved: 10-24-2023 12-12-2018 Chronic Mood disorders (2 sources) Mood disorders Onset: 04-23-2023 Resolved: 12-06-2023 04-23-2023 Other circulatory disease (1 source) Low blood pressure; Translations: [Hypotension, unspecified] Onset: 03-02-2023 03-02-2023 Episodic Other connective tissue disease (2 sources) Bilateral trochanteric bursitis; Translations: [Trochanteric bursitis, right hip] Onset: 11-03-2017 11-03-2017 Episodic Other connective tissue disease (1 source) Impingement syndrome of right shoulder region; Translations: [Impingement syndrome of right shoulder] Onset: 08-14-2011 06-22-2018 Episodic Other connective tissue disease (1 source) Muscle spasm of cervical muscle of neck; Translations: [Other muscle spasm] Onset: 05-05-2019 05-05-2019 Episodic Other connective tissue disease (1 source) Nocturnal muscle spasm ; Translations: [Other muscle spasm] Onset: 06-12-2019 06-12-2019 Episodic Other connective tissue disease (1 source) Recurrent falls ; Translations: [Repeated falls] Onset: 11-01-2017 06-04-2023 Episodic Other connective tissue disease (1 source) History of lumbar fusion; Translations: [Arthrodesis status] Onset: 12-11-2015 06-04-2023 Episodic Other lower respiratory disease (1 source) Dyspnea; Translations: [Shortness of breath] Onset: 11-06-2019 11-06-2019 Episodic Other nervous system disorders (1 source) Impairment of balance; Translations: [Other abnormalities of gait and mobility] Onset: 06-12-2019 06-12-2019 Episodic Other non-traumatic joint disorders (2 sources) Hip pain; Translations: [Pain in right hip] Onset: 10-13-2017 11-03-2017 Episodic Other upper respiratory disease (1 source) Chronic hoarseness; Translations: [Dysphonia] Onset: 07-24-2020 07-24-2020 Episodic Screening and history of mental health and substance abuse codes (2 sources) H/O: depression; Translations: [Personal history of other mental and behavioral disorders] Onset: 2018 2018 Episodic Spondylosis; intervertebral disc disorders; other back problems (19 sources) Lumbago with sciatica, unspecified side; Translations: [Spinal stenosis of lumbar region] Onset: 08-14-2011 Resolved: 10-24-2023 12-22-2022 Episodic Results Test Name Value Interpretation Reference Range Facility [facility] 12-06-2023 DEXA SCAN CENTRAL SKELETAL DEXA SCAN CENTRAL SKELETAL CLINICAL INFORMATION: Age-related osteoporosis without current pathological fracture, Post menopausal, TECHNIQUE: Dual X-ray Absorptiometry (DXA) was performed. COMPARISON: No relevant prior studies available. FINDINGS: LEFT FEMORAL NECK: BMD is 0.707 gm/cm2. T-score is -2.4. LEFT TOTAL FEMUR: BMD is 0.700 gm/cm2. T-score is -2.4. RIGHT FEMORAL NECK: BMD is 0.833 gm/cm2. T-score is -1.5. RIGHT TOTAL FEMUR: BMD is 0.791 gm/cm2. T-score is -1.7. LEFT FOREARM: Bone density is 0.526 gm/cm2. T-score is -4.0. The estimated 10-year probability for a major osteoporotic fracture (utilizing FRAX) is 25.4% and for a hip fracture is 7.8%. IMPRESSION: Osteoporosis (based on WHO criteria). WHO CLASSIFICATION: Normal: T-score -1.0 or above Osteopenia: T-score -1.1 to < 2.5 Osteoporosis: T-score -2.5 or lower Secondary causes of bone loss should be evaluated if clinically indicated since the etiology of low BMD cannot be determined by BMD measurement alone. Finalized by Corey Ann MD on 12/06/2023 2:10 AM Normal [facility] CT Abdomen/Pelvis w + w/o Co ntraston 12-07-2022 CT Abdomen/Pelvis w + w/o Contrast CLINICAL INDICATION: Hematuria and bilateral flank pain for 5 or 6 months. COMPARISON: None. TECHNIQUE: Multidetector helical CT of the abdomen and pelvis following IV contrast administration. Sagittal and coronal reformatted images were reviewed. FINDINGS: The liver shows diffuse fatty infiltration and a 12 mm cyst in segment 6. The gallbladder has been removed. There is a peripherally calcified 2 x 1 cm probable lymph node inferior to the gallbladder fossa. Common bile duct appears within normal limits. Spleen is normal in appearance. Pancreas is unremarkable. Adrenal glands are normal in appearance. The kidneys showed no hydronephrosis or hydroureter. The left kidney contains 3 stones that measure 2-4 mm. The stomach shows a small hiatal hernia. Small bowel shows no dilation or wall thickening. The colon shows normal wall thickness and caliber. The appendix is not seen, possibly removed. No free air or significant free fluid. No lymphadenopathy. The bladder shows mild wall thickening anteriorly. The uterus has been removed. There has been prior L3-L5 laminectomies and posterior lumbar interbody fusion. There is a moderate levoscoliosis centered at L1. There are degenerative changes throughout the spine. No fracture is seen. There are mild to moderate aortoiliac and branch atherosclerotic calcifications. IMPRESSION: 1. Bladder wall thickening suggesting cystitis/UTI. 2. Punctate nonobstructing left nephroliths. 3. Hepatic steatosis. Report reported and signed by Felix Dominguez on 12/07/[address] [facility] XR HAND LEFT (MIN 3 VIEWS)on 11-07-2022 XR HAND LEFT (MIN 3 VIEWS) 3 x-ray views of the left hand completed on 10/12/2022 were reviewed independently demonstrating an oblique fracture with mild comminution involving the proximal phalanx of the small finger. No significant change in overall alignment appreciated. Mild interval consolidation across the fracture site noted. Interpreted by: Matt Cowart MD Signed by: Mtat Cowart MD 11/07/22 Final result Normal [facility] XR HAND LEFT (MIN 3 VIEWS) 3 xray views of the left hand completed on 09/28/2022 were reviewed independently demonstrating what appears to be a slightly comminuted oblique fracture of the proximal phalanx of the small finger associated with dorsal and ulnar angulation. Degeneration noted involving the PIP and DIP joints of all 4 ulnar digits in addition to the IP joint of the thumb. Significant joint space loss and osteophytic change involving the first CMC joint. Interpreted by: Matt Cowart MD Signed by: Matt Cowart MD 11/07/22 Final result Normal [facility] XR Chest 2 Views*on 09-10-20 XR Chest 2 Views* HISTORY: SOB, sternal pain, bronchitis x 1 week FINDINGS: No prior chest x-rays available for comparison. Mild peribronchial cuffing is present, which may suggest bronchitis. No focal infiltrates or worrisome mass lesions are seen. Diffuse interstitial prominence, no localizing consolidation or alveolar infiltrates. No pneumothorax is present. Mild thickening of the minor fissures, minimal left lower chest subsegmental atelectasis. Cardiac silhouette and soft tissues are unremarkable. Mild thoracolumbar scoliosis. IMPRESSION: 1. Diffuse interstitial prominence overall appearance can be consistent with interstitial pneumonia, conceivably interstitial lung disease. Report reported and signed by Bartolome Monson on 09/10/2022 1507 Normal [facility] Complete Blood Count with Au to Diffon 12-11-2021 Basophils (Bld) [#/Vol] 0.07 10*3/uL Normal 0.00-0.20 [facility] Comment on above: Performed By: #### CMP, CBCAD #### [facility] [address] [place], [place] [id number] Basophils/100 WBC (Bld) 0.9 % Normal [facility] Comment on above: Performed By: #### CMP, CBCAD #### [facility] [address] [place], [place] [id number] Eosinophils (Bld) [#/Vol] 0.17 10*3/uL Normal 0.02-0.50 [facility] Comment on above: Performed By: #### CMP, CBCAD #### [facility] [address] [place], [place] [id number] Eosinophils/10 0 WBC (Bld) 2.3 % Normal [facility] Comment on above: Performed By: #### CMP, CBCAD #### [facility] [address] [place], [place] [id number] Erythrocyte distribution width (RBC) [Ratio] 16.4 % High 11.0-15.0 [facility] Comment on above: Performed By: #### CMP, CBCAD #### [facility] [address] [place], [place] [id number] Hematocrit (Bld) [Volume fraction] 42.9 % Normal 35.0-47.0 [facility] Comment on above: Performed By: #### CMP, CBCAD #### [facility] [address] [place], [place] [id number] Hemoglobin (Bld) [Mass/Vol] 13.5 g/dL Normal 11.6-15.5 [facility] Comment on above: Performed By: #### CMP, CBCAD #### [facility] [address] [place], [place] [id number] Lymphocytes (Bld) [#/Vol] 2.7 10*3/uL Normal 0.9-3.9 [facility] Comment on above: Performed By: #### CMP, CBCAD #### [facility] [address] [place], [place] [id number] Lymphocytes/10 0 WBC (Bld) 36.1 % Normal [facility] Comment on above: Performed By: #### CMP, CBCAD #### [facility] [address] [place], [place] [id number] MCH (RBC) [Entitic mass] 27.7 pg Normal 27.0-33.0 [facility] Comment on above: Performed By: #### CMP, CBCAD #### [facility] [address] [place], [place] [id number] MCHC (RBC) [Mass/Vol] 31.5 g/dL Low 32.0-36.0 [facility] Comment on above: Performed By: #### CMP, CBCAD #### [facility] [address] [place], [place] [id number] MCV (RBC) [Entitic vol] 88 fL Normal 80-100 [facility] Comment on above: Performed By: #### CMP, CBCAD #### [facility] [address] [place], [place] [id number] Monocytes (Bld) [#/Vol] 0.8 10*3/uL Normal 0.2-0.9 [facility] Comment on above: Performed By: #### CMP, CBCAD #### [facility] [address] [place], [place] [id number] Monocytes/100 WBC (Bld) 10.8 % Normal [facility] Comment on above: Performed By: #### CMP, CBCAD #### [facility] [address] [place], [place] [id number] Neutrophils (Bld) [#/Vol] 3.7 10*3/uL Normal 1.5-7.8 [facility] [employer] Comment on above: Performed By: #### CMP, CBCAD #### [facility] [address] [place], [place] [id number] Neutrophils/10 0 WBC (Bld) 49.2 % Normal [facility] Comment on above: Performed By: #### CMP, CBCAD #### [facility] [address] [place], [place] [id number] Platelet mean volume (Bld) [Entitic vol] 11.00 fL Normal 7.50-12.50 [facility] [employer] Comment on above: Performed By: #### CMP, CBCAD #### [facility] [address] [place], [place] [id number] Platelets (Bld) [#/Vol] 246 10*3/uL Normal 140-400 [facility] [employer] Comment on above: Performed By: #### CMP, CBCAD #### [facility] [address] [place], [place] [id number] RBC (Bld) [#/Vol] 4.88 10*6/uL Normal 3.90-5.20 [facility] [employer] Comment on above: Performed By: #### CMP, CBCAD #### [facility] [address] [place], [place] [id number] RDW-SD 53.1 fL High 37.0-50.0 [facility] [employer] Comment on above: Performed By: #### CMP, CBCAD #### [facility] [address] [place], [place] [id number] WBC (Bld) [#/Vol] 7.5 10*3/uL Normal 3.8-11.0 [facility] [employer] Comment on above: Performed By: #### CMP, CBCAD #### [facility] [address] [place], [place] [id number] Comprehensive Metabolic Pane becky 12-11-2021 Albumin [Mass/Vol] 4.2 g/dL Normal 3.6-5.1 [facility] [employer] Comment on above: Performed By: #### SANTOS, CBCAD #### [facility] [address] [place], [place] [id number] Albumin/Globul in [Mass ratio] 1.7 {ratio} Normal 1.0-2.5 [facility] [employer] Comment on above: Performed By: #### CMP, CBCAD #### [facility] [address] [place], [place] [id number] ALP [Catalytic activity/Vol] 71 U/L Normal 35-119 [facility] [employer] Comment on above: Performed By: #### SANTOS, CBCAD #### [facility] [address] [place], [place] [id number] ALT [Catalytic activity/Vol] 12 U/L Normal 6-33 [facility] [employer] Comment on above: Result Comment: 10/22/2021 Female referen ce range changed. Performed By: #### C LG, CBCAD #### [facility] [address] [place], [place] [id number] Anion gap [Moles/Vol] 18 mmol/L Normal 12-20 [facility] [employer] Comment on above: Result Comment: Effective 11/27/2019 refer ence range changed. Performed By: #### C MP, CBCAD #### [facility] [address] [place], [place] [id number] AST [Catalytic activity/Vol] 15 U/L Normal 9-34 [facility] [employer] Comment on above: Performed By: #### CMP, CBCAD #### [facility] [address] [place], [place] [id number] Bilirubin [Mass/Vol] 0.33 mg/dL Normal 0.30-1.20 [facility] [employer] Comment on above: Performed By: #### CMP, CBCAD #### [facility] [address] [place], [place] [id number] BUN/CREA 35 Ratio High 6-22 [facility] [employer] Comment on above: Performed By: #### CMP, CBCAD #### [facility] [address] [place], [place] [id number] Calcium [Mass/Vol] 9.4 mg/dL Normal 8.6-10.2 [facility] [employer] Comment on above: Performed By: #### CMP, CBCAD #### [facility] [address] [place], [place] [id number] Chloride [Moles/Vol] 106 mmol/L Normal 98-107 [facility] [employer] Comment on above: Performed By: #### CMP, CBCAD #### [facility] [address] [place], [place] [id number] CO2 [Moles/Vol] 24 mmol/L Normal 20-31 [facility] [employer] Comment on above: Performed By: #### CMP, CBCAD #### [facility] [address] [place], [place] [id number] Creatinine [Mass/Vol] 0.9 mg/dL Normal 0.6-1.4 [facility] [employer] Comment on above: Performed By: #### CMP, CBCAD #### [facility] [address] [place], [place] [id number] eGFRAA 70 mL/min/1.73m2 Normal >60 [facility] [employer] Comment on above: Performed By: #### CMP, CBCAD #### [facility] [address] [place], [place] [id number] eGFRNAA 58 mL/min/1.73m2 Low >60 [facility] [employer] Comment on above: Performed By: #### CMP, CBCAD #### [facility] [address] [place], [place] [id number] Globulin (S) [Mass/Vol] 2.5 g/dL Normal 1.9-3.7 [facility] [employer] Comment on above: Performed By: #### CMP, CBCAD #### [facility] [address] [place], [place] [id number] Glucose [Mass/Vol] 84 mg/dL Normal 65-99 [facility] [employer] Comment on above: Result Comment: For FASTING Glucose --- ADA reference ranges: Normal 65-99 mg/dl Prediabetes 100-125 Diabetes >/= 126 Performed By: #### C MP, CBCAD #### [facility] [address] [place], [place] [id number] Potassium [Moles/Vol] 4.3 mmol/L Normal 3.5-5.5 [facility] [employer] Comment on above: Performed By: #### CMP, CBCAD #### [facility] [address] [place], [place] [id number] Protein [Mass/Vol] 6.7 g/dL Normal 6.1-8.1 [facility] [employer] Comment on above: Performed By: #### CMP, CBCAD #### [facility] [address] [place], [place] [id number] Sodium [Moles/Vol] 143 mmol/L Normal 135-146 [facility] Comment on above: Performed By: #### CMP, CBCAD #### [facility] [address] [place], [place] [id number] Urea nitrogen [Mass/Vol] 33 mg/dL High 7-25 [facility] Comment on above: Performed By: #### CMP, CBCAD #### [facility] [address] [place], [place] [id number] Calciumon 06-20-2019 Calcium [Mass/Vol] 10.0 mg/dL Normal 8.4-10.2 [facility] Comment on above: Performed By: #### 1030, 1035, 4500, 451 0, 4520, 4581 #### [facility] Unless Otherwise Noted [address] [place] [address] / COLA #4724/CLIA # [id number] Creatinineon 06-20-2019 Creatinine [Mass/Vol] 0.9 mg/dL Normal 0.5-1.0 [facility] Comment on above: Performed By: #### 1030, 1035, 4500, 451 0, 4520, 4581 #### [facility] Unless Otherwise Noted [address] [address] / COLA #4724/CLIA # [id number] Creatinine [Mass/Vol] 74.8 Kg Normal [facility] Comment on above: Performed By: #### 1030, 1035, 4500, 451 0, 4520, 4581 #### [facility] Unless Otherwise Noted [address] [address] / COLA #4724/CLIA # [id number] Creatinine [Mass/Vol] 64.8 ml/m1.73 Normal [facility] Comment on above: Performed By: #### 1030, 1035, 4500, 451 0, 4520, 4581 #### [facility] Unless Otherwise Noted [address] [address] / COLA #4724/CLIA # [id number] Creatinine [Mass/Vol] 65.1 ml/m1.73 Normal [facility] Comment on above: Performed By: #### 1030, 1035, 4500, 451 0, 4520, 4581 #### [facility] Unless Otherwise Noted [address] [address] / COLA #4724/CLIA # [id number] Creatinine [Mass/Vol] 78.7 ml/m1.73 Normal [facility] Comment on above: Performed By: #### 1030, 1035, 4500, 451 0, 4520, 4581 #### [facility] Unless Otherwise Noted [address] [address] / COLA #4724/CLIA # [id number] FT3on 06-20-2019 FT3 2.80 pg/mL Normal 2.45-5.93 [facility] Comment on above: Performed By: #### 1030, 1035, 4500, 451 0, 4520, 4581 #### [facility] Unless Otherwise Noted [address] [address] / COLA #4724/CLIA # [id number] FT4on 06-20-2019 Free T4 [Mass/Vol] 1.93 ng/dL Normal 0.78-2.44 [facility] Comment on above: Performed By: #### 1030, 1035, 4500, 451 0, 4520, 4581 #### [facility] Unless Otherwise Noted [address] [facility] [address] [place] [address] / COLA #4724/CLIA # [id number] TSHon 06-20-2019 TSH Qn 0.57 uIU/ml Normal 0.47-4.68 [facility] Comment on above: Performed By: #### 1030, 1035, 4500, 451 0, 4520, 4581 #### [facility] Unless Otherwise Noted [address] [address] / COLA #4724/CLIA # [id number] VITAMIN D 25on 06-20-2019 VITAMIN D 25 51.5 ng/ml Normal 30.0-100.0 [facility] Comment on above: Result Comment: Deficient <20 Insufficient 20-<30 Sufficient 30-100 Potiential Toxicity >100 Performed By: #### 1 030, 1035, 4500, 4510, 4520, 4581 #### [facility] Unless Otherwise Noted [address] [address] / COLA #4724/CLIA # [id number] Basic Metabolic Profon 05-06 (cont.) Normal [facility] Comment on above: Result Comment: Average GFR for 70 or mo re years old: 75 mL/min/1.73sq mChronic Kidney Disease: <60 mL/min/1.73sq mKidney failure: <15 mL/min/1.73sq meGFR calculated using average adult body mass. Additional eGFR calculator available at:http://www.globalrph.[employer]/multiple_crcl_2012.htmPerformed at [facility] [address] [place] [address] Performed By: #### C DP, BMP ####[facility] [place] [address] Anion gap 14 mmol/L Normal 9-17 [facility] Comment on above: Performed By: #### CDP, BMP ####[facility] [address] Calcium 9.6 mg/dL Normal 8.6-10.4 [facility] Comment on above: Performed By: #### CDP, BMP ####[facility] [address] Chloride 106 mmol/L Normal 98-107 [facility] Comment on above: Performed By: #### CDP, BMP ####[facility] [place] [address] CO2 26 mmol/L Normal 20-31 [facility] Comment on above: Performed By: #### CDP, BMP ####[facility] [place] [address] Creatinine 0.91 mg/dL High 0.50-0.90 [facility] Comment on above: Performed By: #### CDP, BMP ####[facility] [address] eGFR (non-black) mL/min/{1.73_m2} Normal >60 [facility] Comment on above: Performed By: #### CDP, BMP ####[facility] [address] Glucose mass conc 99 mg/dL Normal 70-99 [facility] Comment on above: Performed By: #### CDP, BMP ####[facility] [facility] [place] [address] Potassium molar conc 4.2 mmol/L Normal 3.7-5.3 [facility] Comment on above: Performed By: #### CDP, BMP ####[facility] [place] [address] Sodium 146 mmol/L High 135-144 [facility] Comment on above: Performed By: #### CDP, BMP ####[facility] [place] [address] Urea nitrogen 21 mg/dL Normal 8-23 [facility] Comment on above: Performed By: #### CDP, BMP ####[facility] [place] [address] BUN/CRE Ratio NOT REPORTED Normal 9-20 [facility] Comment on above: Performed By: #### CDP, BMP ####[facility] [place] [address] Staging: NOT REPORTED Normal [facility] Comment on above: Performed By: #### CDP, BMP ####[address] [address] CBC with Diffon 05-06-2018 Abs. Basophil 0.10 k/uL Normal 0.0-0.2 [facility] Comment on above: Result Comment: Performed at [facility] [address] [place] [address] Performed By: #### C DP, BMP ####[address] [address] Abs.Neutrophil (Seg) 4.00 k/uL Normal 1.3-9.1 [facility] Comment on above: Performed By: #### CDP, BMP ####[place] [address] [facility] [place] [address] Basophils/100 WBC Auto (Bld) 1 % Normal 0-2 [facility] Comment on above: Performed By: #### CDP, BMP ####[facility] [place] [address].[place] [address] Eosinophils 0.20 10*3/uL Normal 0.0-0.4 [facility] Comment on above: Performed By: #### CDP, BMP ####[facility] [place] [address] Eosinophils/10 0 leukocytes 2 % Normal 0-4 [facility] Comment on above: Performed By: #### CDP, BMP ####[address] [address] Erythrocyte distribution width Auto Ratio (RBC) 13.9 % Normal 11.5-14.9 [facility] Comment on above: Performed By: #### CDP, BMP ####[facility] [place] [address] Erythrocytes (RBC) 4.68 10*6/uL Normal 4.0-5.2 [facility] Comment on above: Performed By: #### CDP, BMP ####[facility] [place] [address] Hematocrit (HCT) 41.8 % Normal 36-46 [facility] Comment on above: Performed By: #### CDP, BMP ####[address] [address] Hemoglobin mass conc (Bld) 13.7 g/dL Normal 12.0-16.0 [facility] Comment on above: Performed By: #### CDP, BMP ####[facility] [place] [address] Lymphocytes 3.20 10*3/uL Normal 1.0-4.8 [facility] Comment on above: Performed By: #### CDP, BMP ####[facility] [place] [address] Lymphocytes/10 0 leukocytes 39 % Normal 24-44 [facility] Comment on above: Performed By: #### CDP, BMP ####[facility] [place] [address] MCH 29.3 pg Normal 26-34 [facility] Comment on above: Performed By: #### CDP, BMP ####[address] [address] MCHC mass conc (RBC) 32.8 g/dL Normal 31-37 [facility] Comment on above: Performed By: #### CDP, BMP ####[address] [address] MCV 89.3 fL Normal 80-100 [facility] Comment on above: Performed By: #### CDP, BMP ####[facility] [place] [address] Monocytes 0.90 10*3/uL Normal 0.1-1.3 [facility] Comment on above: Performed By: #### CDP, BMP ####[address] [address] Monocytes/100 leukocytes 11 % High 1-7 [facility] Comment on above: Performed By: #### CDP, BMP ####[address] [address] Neutrophil (Seg) 47 % Normal 36-66 [facility] Comment on above: Performed By: #### CDP, BMP ####[address] [address] Platelet mean volume (PMV) 10.3 fL Normal 6.0-12.0 [facility] Comment on above: Performed By: #### CDP, BMP ####[facility] [place] [address] Platelets 232 10*3/uL Normal 150-450 [facility] Comment on above: Performed By: #### CDP, BMP ####[facility] [place] [address] WBC (Leukocytes) 8.4 10*3/uL Normal 3.5-11.0 [facility] Comment on above: Performed By: #### CDP, BMP ####[address] [address] Auto Diff Performed NOT REPORTED Normal [facility] Comment on above: Performed By: #### CDP, BMP ####[facility] [place] [address] Erythrocyte morphology NOT REPORTED Normal [facility] Comment on above: Performed By: #### CDP, BMP ####[address] [address] Erythrocytes (RBC) NOT REPORTED Normal [facility] Comment on above: Performed By: #### CDP, BMP ####[address] [address] Granulocytes/1 00 WBC (Bld) NOT REPORTED Normal 0.00-0.30 [facility] Comment on above: Performed By: #### CDP, BMP ####[address] [address] Immature granulocytes #/vol (Bld) NOT REPORTED Normal 0 [facility] Comment on above: Performed By: #### CDP, BMP ####[address] [place] [address] Platelets NOT REPORTED Normal [facility] Comment on above: Performed By: #### CDP, BMP ####[facility] [place] [address] WBC Morphology NOT REPORTED Normal [facility] Comment on above: Performed By: #### CDP, BMP ####[facility] [place] [address] CNCOon 02-01-2018 CNCO Letter Carmenza vail, [facility] [address] [facility] [place], [place] [address] L[address], [address] [place], [place] [address]NAME: ANGELA RUTH [facility] NO.: [id number] Ms. Hernandez:I recently evaluated your patient, Angela Ruth. As you recall, is a 72-year-old woman who complains of low back pain and, to alesser degree, bilateral leg pain. She has undergone three lumbar surgeriesin the past including an L3-L5 decompression with fusion and fixation [id number]. Conservative measures to date have not given her much relief.I reviewed an MRI of the lumbar spine. I did not detect any evidence ofsignificant stenosis or foraminal narrowing that would warrant surgicalintervention. I obtained plain films of the lumbar spine. This demonstratesthe instrumentation to be in satisfactory position. She has a mild degree ofscoliosis above her instrumentation. I do not see any evidence ofinstability on flexion-extension views.At this time, I do not see any indication for further surgery for . I have advised her to continue with conservative treatment and toconsider the possibility of dorsal column stimulation.If there are any other questions you have regarding Mrs. Ruth, please donot hesitate to contact my office. Thank you for this consultation.Sincerely,Kalia Gill M.D.ALANNAK:[facility] CNOVon 01-27-2018 CNOV Office Visit (SPNSMN) ANGELA RUTH ([id number]) 1945 FDa Time Provider Department01/27/18 12:40 PM KALIA GILL SPNSMN During your visit today, we recorded the following information about you: Pulse Respiration Blood pressure Weight 85/minute 18/minute 141/65 76.2 kg Height 1.651 Claudio Gill MD 01/27/2018 4:15 PM AddendumSPINE SURGERY NEW PATIENTPCP: No PCPREFERRING PROVIDER: Dr. Mayte Ruth is a 72 year old female presenting alone.CHIEF COMPLAINT: low back pain, bilateral leg painHISTORY OF PRESENT ILLNESS:Complains of low back pain and bilateral leg pain for several years. Back painis worse than leg pain. She has stabbing midline back pain that radiates downher posterior L leg to the heel and down her posterior R leg to the knee withextension into her R groin.She has had 3 previous lumbar spine surgeries (L4-5 hemidiscetomy, ([id number])) L3-5 decompression fusion and fixation (Beaks: 2009) and lumbardecompression (Alexy) 2017.She has also tried physical therapy, gabapentin, injections, radiofreqablation, opioids, NSAIDs, muscle relaxants with no significant improvement inpain.PRECIPITATING EVENT: NoneDURATION OF SYMPTOMS: Greater Than 1 YearPAIN EVALUATION 01/27/2018 Pain Score: 7 Pain Location: Back-Lower Legs down to the heal of the left leg Description: Throbbing Duration Amount of Time: 9 Duration Units: Months Frequency: Continuous Intervention: Medication;Cold;Heat;Exercise;Relax ation;Other: See comment injectionsPain Radiation: down the right and left thighAggravating Factors: Standing, Walking, Driving (riding in a car)Alleviating Factors: NonePain Ratio: Pain in the back is greater than in the legDERMATOMAL DISTRIBUTION:Right: L5 and S1Left: L5 and [id number] STATUS: Impaired Community DistancesPREVIOUS CONSERVATIVE TREATMENTS:OTC NSAIDS for 3 Months or Greater (Ibuprofen and Aleve)Muscle RelaxantsAnalgesicsOpioidsPhysical Therapy: Date(s)Epidural Blocks: Date(s)PREVIOUS SPINAL SURGERY:SURGERY #1: L4-5 hemidiscectomy did wellSURGERY #2: L3-54 decompression with fixation and fusion: some releifSURGERY #3: L4-5 fusion extension: temporary reliefACTIVE PROBLEM LISTChronic Midline Low Back Pain With SciaticaNo past medical history on file.No past surgical history on file.No family history on file.Social History Marital status: Spouse name: Years of education: Number of children:Social History Main Topics Smoking status: Never Smoker Smokeless status: Never Used Alcohol use: NoALLERGIESAllergen Reactions- Lincosamides Anaphylaxis- Influenza Virus Vac* Swelling- Adhesive Other: See Comments States causes blisters/even paper tape- Amoxicillin-Pot Cla* Rash- Egg White Swelling Says about 1964? and only one arm affected. No rash, hives, or troublebreathing- Aspartame Other: See Comments migraines- Clavulanic Acid Rash- Clemizole Rash- Lincomycin Rash- Oxaprozin Rash- Penicillins RashMEDICATIONS:acetaminophen (TYLENOL) 500 mg tablet Take 500-1,000 mg by mouth three timesdaily as needed.PROAIR HFA 90 mcg/actuation inhaler as needed.amitriptyline (ELAVIL) 100 mg tablet Take 100 mg by mouth daily at bedtime.atorvastatin (LIPITOR) 40 mg tablet Take 40 mg by mouth once daily.carvedilol (COREG) 25 mg tablet Take 25 mg by mouth twice daily.cholecalciferol (VITAMIN D3) 1,000 unit tab tablet 1,000 Units once daily.diclofenac, EC, (VOLTAREN) 75 mg EC tablet Take 75 mg by mouth twice daily asneeded.escitalopram oxalate (LEXAPRO) 20 mg tablet Take 20 mg by mouth once daily.losartan-hydrochlorothiazide (HYZAAR) 100-25 mg per tablet Take 1 tablet bymouth once daily.Fenofibrate (LOFIBRA) 160 mg tablet Take 160 mg by mouth once daily.fexofenadine (ALLY) 180 mg tablet Take 180 mg by mouth once daily.levothyroxine (SYNTHROID) 150 mcg tablet 1 tablet once daily.meclizine (ANTIVERT) 25 mg tab Take 25 mg by mouth three times daily as needed.omeprazole (PRILOSEC) 20 mg capsule 20 mg once daily.acetaminophen-dichloralphenaz one-isometheptene (MIDRIN) 65-100-325 mg percapsule 1 capsule four times daily as needed.cyclobenzaprine (FLEXERIL) 5 mg tablet Take 10 mg by mouth three times daily asneeded.multivitamin tablet Take 1 tablet by mouth once daily.calcium carbonate-vitamin D3 600 mg(1,500mg) -800 unit tab Take 1 tablet bymouth once daily.ezetimibe-simvastatin 10-40 mg (VYTORIN) 10-40 mg per tablet Take by mouth.esomeprazole (NEXIUM) 40 mg capsule Take 40 mg by mouth.verapamil SR (CALAN SR, ISOPTIN SR) 120 mg CR tablet 1 tablet three timesdaily.zafirlukast (ACCOLATE) 20 mg tablet 1 tablet twice daily.metoclopramide HCl (REGLAN) 10 mg tablet Take 10 mg by mouth every 6 hours asneeded.magnesium gluconate (MAGONATE) 27 mg (500 mg) tab Take 500 mg by mouth oncedaily.topiramate (TOPAMAX) 100 mg tablet 300 mg once daily. 100 mg in the A.M and 200at bedtimeREVIEW OF SYSTEMS:PAIN ASSESSMENT: See HPI.GENERAL: Denies fever, chills malaise and weight loss.CARDIOVASCULAR: Denies chest pain, history of A-fib, valvular disease, orpacemaker/ICD.RESPIRATORY: Denies SOB, sputum production, and hemoptysis.MUSCULOSKELETAL: Positive for low back painSKIN: Denies rash or itching.NEURO: Denies CVA, seizures, headaches.OBJECTIVE:PHYSICAL EXAMBP 141/65 Pulse 85 Resp 18 Ht 165.1 cm (5' 5ANDquot;) Wt 76.2 kg (168 lb) BMI 27.96 kg/[id number] APPEARANCE: Well nourished, well developed, and no apparent distress.NEURO PSYCH: Patient oriented to person, place, and time. Mood pleasant. Benignaffect.MUSCULOSKELETAL VISUAL INSPECTION CERVICAL: WNL THORACIC: WNL LUMBAR: WNLMOTOR: Hip Flexors Right: 5, Left: 5Knee Extensors Right 5 and Left 4Long Toe Extensors Right: 5, Left: 4Ankle Plantar Flexors Right: 5, Left: 4Ankle Dorsiflexion Right: 5, Left: 4SENSORY: Normal sensory examGAIT: Normal.NEURO TESTS:Pain with straight leg bilaterallyIMAGINGLumbar MRI; S/P L3-5 pedicle fixation, mild stenosis at L2-3Plain films: mild scoliosis above her construct. No instability on F/E views.ASSESSMENT/PLANIMPRESSION:(M5 4.40, G89.29) Chronic midline low back pain with sciatica, sciaticalaterality unspecified (primary encounter diagnosis)Angela Ruth does not require surgery at this time. Continue withconservative mgt per LMD.I reviewed the information obtained and documented by the resident. I examinedthe patient and evaluated all available films and pertinent documents. Wediscussed the case and I agree with the plans as outlined in this note.SIGNATURE: Kalia Gill MD PATIENT NAME: Angela RuthDATE: January 27, 2018 : 1:07 PM PAGER:PTFReferring Provider: RENA HERNANDEZ [[id number]]Allergies As of Date: 01/27/2018 Noted Allergy ReactionLINCOSAMIDES 02/12/2017 10 - AnaphylaxisINFLUENZA VIRUS VACCINES 02/12/2017 7 - SwellingADHESIVE 11/04/2016 14 - Other: See Comments Comments: States causes blisters/even paper tapeAMOXICILLIN-POT CLAVULANATE 08/14/2011 2 - RashEGG WHITE 08/14/2011 7 - Swelling Comments: Says about 1964? and only one arm affected. No rash, hives, or trouble breathingASPARTAME 02/12/2017 14 - Other: See Comments Comments: migrainesCLAVULANIC ACID 02/12/2017 2 - RashCLEMIZOLE 02/12/2017 2 - RashLINCOMYCIN 11/04/2016 2 - RashOXAPROZIN 11/04/2016 2 - RashPENICILLINS 11/04/2016 2 - RashDate Reviewed: 01/27/2018Reviewed by: Valentine Madrid MA - Fully AssessedReason for Visit: New Patient [172]Primary Visit Diagnosis:Chronic midline low back pain with sciatica, sciatica laterality unspecified [M54.40, G89.29]Order(s):XR LUMBAR MOTION 4V AP/LAT/ FLEX/EXT [[id number]] Order #: [id number] FUTUREPrescriptions as of 01/27/2018 Sig: ACETAMINOPHEN 500 MG TABLET Take 500-1,000 mg by mouth th* PROAIR HFA 90 MCG/ACTUATION A* as needed. AMITRIPTYLINE 100 MG TABLET Take 100 mg by mouth daily at* ATORVASTATIN 40 MG TABLET Take 40 mg by mouth once halley* CARVEDILOL 25 MG TABLET Take 25 mg by mouth twice bandar* CHOLECALCIFEROL (VITAMIN D3) * 1,000 Units once daily. DICLOFENAC SODIUM 75 MG TABLE* Take 75 mg by mouth twice bandar* ESCITALOPRAM 20 MG TABLET Take 20 mg by mouth once halley* LOSARTAN 100 MG-HYDROCHLOROTH* Take 1 tablet by mouth once d* FENOFIBRATE 160 MG TABLET Take 160 mg by mouth once bandar* FEXOFENADINE 180 MG TABLET Take 180 mg by mouth once bandar* LEVOTHYROXINE 150 MCG TABLET 1 tablet once daily. MECLIZINE 25 MG TABLET Take 25 mg by mouth three lyubov* OMEPRAZOLE 20 MG CAPSULE,SHARI* 20 mg once daily. ZXIOCIKEUHXHE-UZCUPVQFZXDXB-T* 1 capsule four times daily as* CYCLOBENZAPRINE 5 MG TABLET Take 10 mg by mouth three lyubov* MULTIVITAMIN TABLET Take 1 tablet by mouth once d* CALCIUM CARBONATE-VITAMIN D3 * Take 1 tablet by mouth once d* EZETIMIBE 10 MG-SIMVASTATIN 4* Take by mouth. ESOMEPRAZOLE MAGNESIUM 40 MG * Take 40 mg by mouth. VERAPAMIL ER (SR) 120 MG TABL* 1 tablet three times daily. ZAFIRLUKAST 20 MG TABLET 1 tablet twice daily. METOCLOPRAMIDE 10 MG TABLET Take 10 mg by mouth every 6 h* MAGNESIUM GLUCONATE 27 MG (50* Take 500 mg by mouth once bandar* TOPIRAMATE 100 MG TABLET 300 mg once daily. 100 mg in *Medication notes this encounter ACETAMINOPHEN 500 MG TABLET >> Valentine Madrid MA, MA 01/27/2018 11:58 AM >> VALENTINE MADRID Sabra Jan 27, 2018 11:58 AM [facility] Sig: Take 500-1,000 mg by mouthevery 6 hours as needed. PROAIR HFA 90 MCG/ACTUATION AEROSOL INHALER >> Valentine Madrid MA, [place] 01/27/2018 11:58 AM >> VALENTINE MADRID Sabra Jan 27, 2018 11:58 AM Received from: External Pharmacy AMITRIPTYLINE 100 MG TABLET >> Valentine Madrid [place], [place] 01/27/2018 11:58 AM >> VALENTINE MADRID Sabra Jan 27, 2018 11:58 AM Received from: [facility] [place] Received Sig: Take 50 mg by mouth nightlyIndications: Treatment to Prevent Migraine Headaches ATORVASTATIN 40 MG TABLET >> Valenitne Madrid [place], [place] 01/27/2018 11:58 AM >> VALENTINE MADRID Sabra Jan 27, 2018 11:58 AM Received from: [facility] Received Sig: Take 1 tablet (40 mgtotal) by mouth daily. CARVEDILOL 25 MG TABLET >> Valentine Madrid MA, MA 01/27/2018 11:58 AM >> VALENTINE MADRID Jan 27, 2018 11:58 AM Received from: External Pharmacy Received Sig: take 1 tablet by mouth twice aday CHOLECALCIFEROL (VITAMIN D3) 1,000 UNIT TABLET >> Valentine Madrid MA, MA 01/27/2018 11:58 AM >> VALENTINE MADRID Jan 27, 2018 11:58 AM [facility] Received Si,000 Units beforebreakfast Indications: Vitamin D Deficiency. DICLOFENAC SODIUM 75 MG TABLET,DELAYED RELEASE >> Valentine Madrid MA, [place] 01/27/2018 11:58 AM >> VALENTINE MADRID Jan 27, 2018 11:58 AM Received from: [employer] [facility] Received Sig: Take 75 mg by mouth 2(two) times a day as needed. [employer]OR advises up to two tablets two days a week formigraines ESCITALOPRAM 20 MG TABLET >> Valentine Madrid MA, [place] 01/27/2018 11:58 AM >> VALENTINE MADRID Jan 27, 2018 11:58 AM Received from: [facility] Received Sig: Take 20 mg by mouth daily. Indications: Depression LOSARTAN 100 MG-HYDROCHLOROTHIAZIDE 25 MG TABLET >> Valentine Madrid MA, MA 01/27/2018 11:58 AM >> VALENTINE MADRID [facility] Jan 27, 2018 11:58 AM Received from: External Pharmacy Received Sig: take 1 tablet by mouth daily FENOFIBRATE 160 MG TABLET >> Valentine Madrid MA, [place] 01/27/2018 11:58 AM >> VALENTINE MADRID Sabra Jan 27, 2018 11:58 AM Received from: [facility] [place] Received Sig: Take 160 mg by mouth daily. Indications: High Amount of Fats in the Blood FEXOFENADINE 180 MG TABLET >> Valentine Madrid MA, [place] 01/27/2018 11:58 AM >> VALENTINE MADRID Sabra Jan 27, 2018 11:58 AM [facility] Received Sig: Take 180 mg by mouthbefore breakfast Indications: Allergic Rhinitis. LEVOTHYROXINE 150 MCG TABLET >> Valentine Madrid MA, MA 01/27/2018 11:58 AM >> VALENTINE MADRID [facility] Jan 27, 2018 11:58 AM Received from: External Pharmacy MECLIZINE 25 MG TABLET >> Valentine Madrid MA, MA 01/27/2018 11:58 AM >> VALENTINE MADRID Sabra Jan 27, 2018 11:58 AM Received from: [facility] [place] Received Sig: Take 25 mg by mouth 3 timesdaily as needed OMEPRAZOLE 20 MG CAPSULE,DELAYED RELEASE >> Valentine Madrid MA, MA 01/27/2018 11:58 AM >> VALENTINE MADRID [facility] Jan 27, 2018 11:58 AM [facility] Received Si mg before breakfastIndications: Gastroesophageal Reflux. [id number]-NHRLQOR ALPHENAZONE 325 MG-65 MG-100 MG ORAL CAP >> Valentine Madrid MA, [place] 01/27/2018 11:58 AM >> VALENTINE MADRID Jan 27, 2018 11:58 AM [facility] Received Si (four) times a day asneeded for migraine. CYCLOBENZAPRINE 5 MG TABLET >> Valentine Madrid MA, MA 01/27/2018 11:58 AM >> VALENTINE MADRID Jan 27, 2018 11:58 AM Received from: [employer] Received Sig: Take 10 mg by mouth 3(three) times a day as needed for muscle spasms. EZETIMIBE 10 MG-SIMVASTATIN 40 MG TABLET >> Valentine Madrid MA, MA 01/27/2018 11:58 AM >> VALENTINE MADRID Jan 27, 2018 11:58 AM [facility] Re[facility] Sig: Take 1 tablet by mouthnightly. ESOMEPRAZOLE MAGNESIUM 40 MG CAPSULE,DELAYED RELEASE >> Valentine Madrid MA, MA 01/27/2018 11:58 AM >> VALENTINE MADRID Jan 27, 2018 11:58 AM [facility] Re[facility] Sig: Take 40 mg by mouth everymorning (before breakfast). Indications: Gastroesophageal Reflux Disease METOCLOPRAMIDE 10 MG TABLET >> Valentine Madrid MA, MA 01/27/2018 12:02 PM >> VALENTINE MADRID Jan 27, 2018 12:02 PM Received from: [facility] [place] Received Sig: Take 10 mg by mouthcontinuous MAGNESIUM GLUCONATE 27 MG (500 MG) TABLET >> Valentine Madrid MA, MA 01/27/2018 12:02 PM >> VALENTINE MADRID Jan 27, 2018 12:02 PM Received from: [facility] [place] Received Sig: Take 500 mg by mouth 2times daily TOPIRAMATE 100 MG TABLET >> Valentine Madrid MA, MA 01/27/2018 12:05 PM >> VALENTINE MADRID Jan 27, 2018 12:05 PM Received from: External PharmacyProblem List As Of Date 01/27/2018 Noted Resolved Chronic midline low back pain with sciatica [M5*INVALID FOR* Status:Closed by KALIA GILL MD on 01/27/18 [facility] PROGRESSon 01-27-2018 PROGRESS HNO ID: [id number] thor: Angela Lake RtService: (none)Author Type: (none)Type: Progress NotesFiled: 01/27/2018 2:25 PMNote Text: Radiology Service Progress NotePATIENT NAME: Angela RuthMRN: [id number] OF SERVICE: January 27, 2018TIME: 2:25 PMPATIENT IDENTITY VERIFICATION COMPLETED USING TWO (2) METHODS: Patientconfirmed name verbally and Date of .PATIENT GENDER DATA: Female. status: : NoBreastfeeding status: NO.PATIENT RELEVANT IMPLANT DATA REVIEWED: Not ApplicableRADIOLOGY DEPARTMENT: General X-ray: Exam(s) Completed: Spine X-Ray(s):Lumbar AP / LAT / L5-S1 / FLEX-EXTPERIPHERAL IV DATA: Not applicableSIGNED BY: Angela Lake [facility] 2017 2:25 PM [facility] PROGRESS HNO ID: [id number] thor: Kalia Mata: (none)Author Type: PhysicianType: Progress NotesFiled: 01/27/2018 4:15 PMNote Text:SPINE SURGERY NEW PATIENTPCP: No PCPREFERRING PROVIDER: Dr. Mayte Ruth is a 72 year old female presenting alone.CHIEF COMPLAINT: low back pain, bilateral leg painHISTORY OF PRESENT ILLNESS:Complains of low back pain and bilateral leg pain for several years. Backpain is worse than leg pain. She has stabbing midline back pain thatradiates down her posterior L leg to the heel and down her posterior R legto the knee with extension into her R groin.She has had 3 previous lumbar spine surgeries (L4-5 hemidiscetomy,(Cedric 1989)) L3-5 decompression fusion and fixation (Beyolanda: 2009) andlumbar decompression (Alexy) 2017.She has also tried physical therapy, gabapentin, injections, radiofreqablation, opioids, NSAIDs, muscle relaxants with no significantimprovement in pain.PRECIPITATING EVENT: NoneDURATION OF SYMPTOMS: Greater Than 1 YearPAIN EVALUATION 01/27/2018 Pain Score: 7 Pain Location: Back-Lower Legs down to the heal of the left leg Description: Throbbing Duration Amount of Time: 9 Duration Units: Months Frequency: Continuous Intervention: Medication;Cold;Heat;Exercise;Relax ation;Other: See comment injectionsPain Radiation: down the right and left thighAggravating Factors: Standing, Walking, Driving (riding in a car)Alleviating Factors: NonePain Ratio: Pain in the back is greater than in the legDERMATOMAL DISTRIBUTION:Right: L5 and S1Left: L5 and H2GZDQAPFIGR STATUS: Impaired Community DistancesPREVIOUS CONSERVATIVE TREATMENTS:OTC NSAIDS for 3 Months or Greater (Ibuprofen and Aleve)Muscle RelaxantsAnalgesicsOpioidsPhysical Therapy: Date(s)Epidural Blocks: Date(s)PREVIOUS SPINAL SURGERY:SURGERY #1: L4-5 hemidiscectomy did wellSURGERY #2: L3-54 decompression with fixation and fusion: some releifSURGERY #3: L4-5 fusion extension: temporary reliefACTIVE PROBLEM LISTChronic Midline Low Back Pain With SciaticaNo past medical history on file.No past surgical history on file.No family history on file.Social History Marital status: Spouse name: Years of education: Number of children:Social History Main Topics Smoking status: Never Smoker Smokeless status: Never Used Alcohol use: NoALLERGIESAllergen Reactions- Lincosamides Anaphylaxis- Influenza Virus Vac* Swelling- Adhesive Other: See Comments States causes blisters/even paper tape- Amoxicillin-Pot Cla* Rash- Egg White Swelling Says about 1964? and only one arm affected. No rash, hives, or troublebreathing- Aspartame Other: See Comments migraines- Clavulanic Acid Rash- Clemizole Rash- Lincomycin Rash- Oxaprozin Rash- Penicillins RashMEDICATIONS:acetaminophen (TYLENOL) 500 mg tablet Take 500-1,000 mg by mouth threetimes daily as needed.PROAIR HFA 90 mcg/actuation inhaler as needed.amitriptyline (ELAVIL) 100 mg tablet Take 100 mg by mouth daily atbedtime.atorvastatin (LIPITOR) 40 mg tablet Take 40 mg by mouth once daily.carvedilol (COREG) 25 mg tablet Take 25 mg by mouth twice daily.cholecalciferol (VITAMIN D3) 1,000 unit tab tablet 1,000 Units once daily.diclofenac, EC, (VOLTAREN) 75 mg EC tablet Take 75 mg by mouth twice dailyas needed.escitalopram oxalate (LEXAPRO) 20 mg tablet Take 20 mg by mouth oncedaily.losartan-hydrochlorothiaz barbara (HYZAAR) 100-25 mg per tablet Take 1 tabletby mouth once daily.Fenofibrate (LOFIBRA) 160 mg tablet Take 160 mg by mouth once daily.fexofenadine (ALLY) 180 mg tablet Take 180 mg by mouth once daily.levothyroxine (SYNTHROID) 150 mcg tablet 1 tablet once daily.meclizine (ANTIVERT) 25 mg tab Take 25 mg by mouth three times daily asneeded.omeprazole (PRILOSEC) 20 mg capsule 20 mg once daily.acetaminophen-dichloralphenaz one-isometheptene (MIDRIN) 65-100-325 mg percapsule 1 capsule four times daily as needed.cyclobenzaprine (FLEXERIL) 5 mg tablet Take 10 mg by mouth three timesdaily as needed.multivitamin tablet Take 1 tablet by mouth once daily.calcium carbonate-vitamin D3 600 mg(1,500mg) -800 unit tab Take 1 tabletby mouth once daily.ezetimibe-simvastatin 10-40 mg (VYTORIN) 10-40 mg per tablet Take bymouth.esomeprazole (NEXIUM) 40 mg capsule Take 40 mg by mouth.verapamil SR (CALAN SR, ISOPTIN SR) 120 mg CR tablet 1 tablet three timesdaily.zafirlukast (ACCOLATE) 20 mg tablet 1 tablet twice daily.metoclopramide HCl (REGLAN) 10 mg tablet Take 10 mg by mouth every 6 hoursas needed.magnesium gluconate (MAGONATE) 27 mg (500 mg) tab Take 500 mg by mouthonce daily.topiramate (TOPAMAX) 100 mg tablet 300 mg once daily. 100 mg in the A.Ashley 200 at bedtimeREVIEW OF SYSTEMS:PAIN ASSESSMENT: See HPI.GENERAL: Denies fever, chills malaise and weight loss.CARDIOVASCULAR: Denies chest pain, history of A-fib, valvular disease, orpacemaker/ICD.RESPIRATORY: Denies SOB, sputum production, and hemoptysis.MUSCULOSKELETAL: Positive for low back painSKIN: Denies rash or itching.NEURO: Denies CVA, seizures, headaches.OBJECTIVE:PHYSICAL EXAMBP 141/65 Pulse 85 Resp 18 Ht 165.1 cm (5' 5 ) Wt 76.2 kg (168 lb) BMI 27.96 kg/s2SFCMTQA APPEARANCE: Well nourished, well developed, and no apparentdistress.NEURO PSYCH: Patient oriented to person, place, and time. Mood pleasant.Benign affect.MUSCULOSKELETAL VISUAL INSPECTION CERVICAL: WNL THORACIC: WNL LUMBAR: WNLMOTOR: Hip Flexors Right: 5, Left: 5Knee Extensors Right 5 and Left 4Long Toe Extensors Right: 5, Left: 4Ankle Plantar Flexors Right: 5, Left: 4Ankle Dorsiflexion Right: 5, Left: 4SENSORY: Normal sensory examGAIT: Normal.NEURO TESTS:Pain with straight leg bilaterallyIMAGINGLumbar MRI; S/P L3-5 pedicle fixation, mild stenosis at L2-3Plain films: mild scoliosis above her construct. No instability on F/Eviews.ASSESSMENT/PLANIMPRESSION: (M54.40, G89.29) Chronic midline low back pain with sciatica, sciaticalaterality unspecified (primary encounter diagnosis)Angela Ruth does not require surgery at this time. Continue withconservative mgt per LMD.I reviewed the information obtained and documented by the resident. Iexamined the patient and evaluated all available films and pertinentdocuments. We discussed the case and I agree with the plans as outlined inthis note.SIGNATURE: Kalia Gill MD PATIENT NAME: Angela RuthDATE: January 27, 2018 : 1:07 PM PAGER:PTF [facility] XR LUMBAR 4V AP/LAT/ FLEX/EX Ton 01-27-2018 XR LUMBAR 4V AP/LAT/ FLEX/EXT * * *Final Report* * *DATE OF EXAM: Jan 27 2018 2:19PM [id number] - XR LUMBAR 4V AP/LAT/ FLEX/EXT / REASON: multiple diagnoses * * * * Physician Interpretation * * * * EXAMINATION: XR LUMBAR 4V AP/LAT/ FLEX/EXTPATIENT/TECHNOLOGIST PROVIDED HISTORY: back pain x9 monthsCLINICAL INFORMATION: Lumbago with sciatica, unspecified side Other chronic painTECHNIQUE: Frontal, lateral, lateral flexion extension, and cone-down lateral weight bearing views of the lumbar spine are obtained. (5 images)COUNTING REFERENCE: Lumbosacral junction. L4/5 is presumed to be the level of the iliac crests. There are 5 lumbar type vertebral bodies.COMPARISON: Outside MR dated 09/13/2017RESULT:There has been pedicle screw fixation and interbody fusion at L3-L5, with mature bilateral lateral bone grafting. Hardware appears satisfactory in position and alignment without evidence of complication. There is generalized osteopenia, common in this age group. There is severe disc space narrowing at L1/L2, L2/L3, and moderate narrowing at L5/S1. There is moderate thoracolumbar levoscoliosis. The patient achieves little change in position with lateral flexion/extension imaging, but no change in alignment is identified.Sacroiliac joints are unremarkable. Limited evaluation of the hip joints is unremarkable.IMPRESSION:POSTOPERATI VE AND DEGENERATIVE CHANGES DESCRIBEDTranscriptionist: PSCB Transcribe Date/Time: Jan 27 2018 2:50PDictated by : CARMENCITA DALTON MDThis examination was interpreted and the report reviewed and electronically signed by: CARMENCITA DALTON MD on Jan 27 2018 2:52PM [id number] Normal [facility] MD-MR HIP LT WO CONT IMPORTo n 11-01-2017 MD-MR HIP LT WO CONT IMPORT Images were obtained outside of [facility] [id number] Normal [facility] MR-MR LUMBAR SPINE W WO CONT IMPORTon 09-13-2017 MR-MR LUMBAR SPINE W WO CONT IMPORT Images were obtained outside of [facility] [id number] Normal [facility] Encounters Encounter Date Encounter Type Care Provider Facility Start: 12-28-2023 End: 12-28-2023 ambulatory RIA SNYDER Not Available Start: 12-23-2023 End: 12-23-2023 ambulatory RIA SNYDER Not Available Start: 12-23-2023 End: 12-23-2023 ambulatory Ria Snyder HAT BRAIDER Work Phone: [facility] Comment on above: General weakness (Pr imary Dx); History of falling Start: 12-21-2023 End: 12-21-2023 ambulatory RIA SNYDER Not Available Start: 12-16-2023 End: 12-16-2023 ambulatory RIA SNYDER Not Available Start: 12-13-2023 Antony aggarwal MD Work Phone: [facility] Start: 12-08-2023 End: 12-08-2023 ambulatory ELMER PETTIT Not Available Start: 12-07-2023 End: 12-07-2023 ambulatory SANTO Castillo SKYE Not Available Start: 12-06-2023 End: 12-06-2023 ambulatory BIA CAO Not Available Start: 12-03-2023 End: 12-04-2023 ambulatory JOHN JOHNSON [facility] Start: 11-29-2023 End: 11-29-2023 ambulatory LALIT Guillermo [facility] Start: 11-23-2023 End: 11-24-2023 ambulatory BIA CAO Not Available Start: 11-11-2023 End: 11-11-2023 ambulatory ELMER PETTIT Not Available Start: 11-08-2023 End: 11-08-2023 ambulatory RIA SNYDER Not Available Start: 11-04-2023 End: 11-04-2023 ambulatory ELMER PETTIT Not Available Start: 10-22-2023 End: 10-22-2023 ambulatory BIA CAO Not Available Start: 09-06-2023 End: 09-07-2023 ambulatory Adelfo Hansen MD [facility] Start: 07-19-2023 End: 07-20-2023 ambulatory Adelfo Hansen MD [facility] Start: 07-05-2023 End: 07-06-2023 ambulatory Adelfo Hansen MD [facility] Start: 10-12-2022 End: 10-12-2022 ambulatory BIA [facility] Start: 09-28-2022 End: 09-28-2022 ambulatory [facility] Start: 05-16-2018 End: 05-16-2018 [facility] Start: 05-06-2018 End: 05-11-2018 Ambulatory LENNY PEDRAZA [facility] Start: 05-02-2018 Patient encounter status John Johnson MD Work Phone: [employer] Work Phone: Start: 01-27-2018 End: 01-27-2018 Ambulatory KALIA GILL [facility] Start: 01-27-2018 End: 01-31-2018 Ambulatory KALIA Foster [facility] Procedures Date Procedure Procedure Detail Performing Clinician Start: 11-29-2023 Follow-up visit Follow-up LALIT RICHARD Start: 04-23-2023 Adult depression scr eening assessment John Johnson MD Work Phone: Start: 05-16-2018 DISCHARGE PATIENT LENNY BRIGGSTANISHA Start: 05-16-2018 BEDREST LENNY PAIZ Start: 05-16-2018 Continuous pulse oximetry LENNY BRIGGSTANISHA Start: 05-16-2018 ENCOURAGE DEEP BREAT KELSEA AND COUGHING LENNY MILO Start: 05-16-2018 NOTIFY PHYSICIAN (SPECIFY) LENNY PEDRAZA Start: 05-16-2018 NURSING COMMUNICATION M FEDERICO PEDRAZA Start: 05-16-2018 INITIATE OXYGEN THER APY PROTOCOL LENNY BRIGGSTANISHA Start: 05-16-2018 INSERT PERIPHERAL IV MA RK MILO Start: 05-16-2018 VITAL SIGNS LENNY ABBIE PAIZ Start: 05-06-2018 Basic metabolic pane l calcium total LENNY BRIGGSRUTHConnie Start: 05-06-2018 Blood count complete auto&auto difrntl wbc LENNY LOPEZNILSConnie Plan of Treatment Date Care Activity Detail Author Start: 12-06-2024 Medicare Annual Well ness (AWV) Medicare Annual Wellness (AWV) [facility] Start: 11-29-2024 Adult BMI Screening Adult BMI Screen ing [employer] [facility] Start: 11-29-2024 Tobacco Screening Tobacco Screening [employer] [facility] Start: 10-01-2024 Fall Risk Screening Fall Risk Screen ing [employer] [facility] Start: 05-21-2024 Influenza vaccination Influenza Vacc ine (#1) [facility] Comment on above: Postponed from 07/23 (Patient Refused) Start: 04-23-2024 Depression Screening Depression Scre ening [employer] Start: 04-11-2024 End: 04-11-2024 Patient encounter procedure 04/11/2024 2:45 PM EDT Office Visit [facility] [address] [place] [address] John Johnson MD [address] [place] [address] [facility] Start: 04-03-2024 End: 04-03-2024 Patient encounter procedure 04/03/2024 11:20 AM EDT Office Visit [facility] [address] [place] [phone] Bia Cao MD [address] [place], [place] [phone] [facility] Start: 02-09-2024 End: 02-09-2024 Patient encounter procedure 02/09/2024 11:00 AM EDT Office Visit [facility] [address] [place] [address] [address] [place] [address] Ryan Dallas MD [address] [facility] [place], [place] [id number] [facility] Start: 01-11-2024 End: 01-11-2024 Patient encounter procedure 01/11/2024 11:00 AM EST Office Visit [facility] [address] [place] [address] Jessenia Dorsey APRN-CLEAT MAKER [address] [place] [address] [facility] Start: 01-06-2024 End: 01-06-2024 ambulatory 01/06/2024 11:30 AM EST Treatment [facility] [address] [place] [phone] Elmer Pettit, PT [address] [place] [address] [facility] Start: 01-04-2024 End: 01-04-2024 ambulatory 01/04/2024 11:30 AM EST Treatment [facility] [address] [place] [address] Ria Snyder, HAT BRAIDER [address] [place] [address] [facility] Start: 12-31-2023 End: 12-31-2023 ambulatory 12/31/2023 10:00 AM EST Treatment [facility] [address] [place] [address] Ria Snyder, HAT BRAIDER [address] [place] [address] [facility] Start: 12-30-2023 End: 12-30-2023 ambulatory 12/30/2023 11:30 AM EST Treatment [facility] [address] [place] [address] Elmer Pettit, PT [address] [place] [address] [facility] Start: 12-28-2023 End: 12-28-2023 ambulatory 12/28/2023 11:30 AM EST Treatment [facility] [address] [place] [address] Ria Snyder, HAT BRAIDER [address] [place] [address] [facility] Start: 07-23-2023 COVID-19 Vaccine () COVID-19 Vaccine () [facility] Start: 07-23-2023 Influenza vaccination Influenza Vacc ine [facility] Start: 08-21-2021 DTaP,Tdap and Td Vaccines (2 - Td or Tdap) DTaP,Tdap and Td Vaccines (2 - Td or Tdap) [facility] Start: 01-17-2010 Administration of varicella zoster vaccine Zoster (Shingles) Vaccine (2 of 3) [facility] Start: 1963 Adult BMI Follow Up Plan Adult BMI Follow Up Plan [facility] Start: 1945 Medicare Annual Well ness Visit Medicare Annual Wellness Visit [facility] Immunizations Immunization Date Immunization Notes Care Provider Fa cili 03-12-2021 COVID-19, mRNA, LNP- S, PF, 100mcg/0.5mL Dose John Johnson MD Work Phone: [facility] 03-11-2021 Moderna SARS-CoV-2 Vaccination Ria Snyder HAT BRAIDER Work Phone: [facility] 02-12-2021 COVID-19, mRNA, LNP- S, PF, 100mcg/0.5mL Dose John Johnson MD Work Phone: [facility] 02-11-2021 Moderna SARS-CoV-2 Vaccination Ria Snyder HAT BRAIDER Work Phone: [facility] 11-12-2020 pneumococcal conjuga te vaccine, 13 valent John Johnson MD Work Phone: [facility] 09-17-2020 influenza, high dose seasonal, preservative-free John Johnson MD Work Phone: [facility] 09-17-2020 Seasonal, quadrivale nt, recombinant, injectable influenza vaccine, preservative free John Johnson MD Work Phone: [facility] 09-17-2020 influenza virus vacc ine, unspecified formulation John Johnson MD Work Phone: [facility] 08-30-2019 Seasonal, quadrivale nt, recombinant, injectable influenza vaccine, preservative free John Johnson MD Work Phone: [facility] 08-29-2018 influenza, injectabl e, quadrivalent, preservative free John Johnson MD Work Phone: [facility] 08-22-2015 influenza, seasonal, injectable, preservative free Ria Snyder HAT BRAIDER Work Phone: [facility] 08-13-2015 pneumococcal polysaccharide vaccine, 23 valent Ria Snyder HAT BRAIDER Work Phone: [facility] 08-21-2011 tetanus and diphther ia toxoids, adsorbed, preservative free, for adult use (5 Lf of tetanus toxoid and 2 Lf of diphtheria toxoid) John Johnson MD Work Phone: [facility] 11-22-2009 zoster vaccine, live Juan Snyder HAT BRAIDER Work Phone: [facility] 11-22-2009 zoster vaccine, unspecified formulation John Johnson MD Work Phone: [facility] Payers Date Payer Category Payer Private Health Insurance 2021 Medicare [id number] 2021 Medicare [id number] 2014 Medicare [id number] 1945 Unknown [id number] 2. [id number] 1945 Unknown [id number] 2.0.1.897451.3.579.2.175 1945 Unknown [id number] 2.16. 840.1.199573.3.579.2. 1945 Unknown [id number] 2.16. 840.1.881691.3.579.2.196 1945 Unknown [id number] 2.16. 840.1.172814.3.579.2.196 1945 Unknown [id number] 2.16.84 0.1.799536.3.579.2.1286 -1945 Unknown [id number] 2.16.84 0.1.065274.3.579.2.1286 -194 Unknown [id number] 2.16.84 0.1.096766.3.579.2.1259 -194 Unknown [id number] 2.16.84 0.1.658085.3.579.2.1259 -194 Unknown [id number] 2.16.84 0.1.589164.3.579.2.1259 -194 Unknown [id number] 2.16.84 0.1.789781.3.579.2.1259 -194 Unknown [id number] 2.16.84 0.1.744415.3.579.2.1259 -194 Unknown [id number] 2.16.84 0.1.253353.3.579.2.1259 -194 Unknown [id number] 2.16.84 0.1.679595.3.579.2.1259 -194 Unknown [id number] 2.16.840 .1.069910.3.579.2.1259 194 Unknown [id number] 2.16.840 .1.801876.3.579.2.1259 194 Unknown [id number] 2.16.840 .1.905053.3.579.2.1259 194 Unknown [id number] 2.16840 .1.975221.3.579.2.1259 194 Unknown [id number] 2.16840 .1.370835.3.579.2.1259 Social History Date Type Detail Facility Start: 06-04-2023 End: 11-29-2023 Tobacco smoking status NHIS Never smoked tobacco [facility] History of tobacco use Passive smoker [facility] Start: 06-04-2023 End: 11-29-2023 Tobacco use and exposure Smokeless tobacco non-user [facility] Start: 11-29-2023 Alcohol intake Current non-drinker of alcohol (finding) [facility] Start: 11-29-2023 End: 12-06-2023 Alcohol intake [facility] Start: 11-29-2023 End: 12-06-2023 Tobacco use panel [facility] Adolescent depressio n screening assessment 0 [facility] Start: 1945 Sex Assigned At Female [facility] Start: 05-22-2021 Gender identity Identifies as female gender (finding) [facility] Start: 05-22-2021 Sexual orientation Heterosexual (finding) [facility] Start: 12-07-2023 Alcohol intake Current drinker of alcohol (finding) [facility] Start: 05-04-2023 Alcohol Comment caffeine: occasional [facility] Start: 1945 Sex Assigned At Not on file [facility] Medical Equipment Procedure Code Equipment Code Equipment Origin al Text Equipment Identifier Dates Patch Dura 1x1in Drmtrx-[place] + Clgn Rgnrt Membr Strl - [id number] Start: 07-03-2021 Goals Date Patient Goal Desired Activity /State Personal health goal Comment on above: Formatting of this n ote might be different from the original. Evaluation of progress towards goal: safe transition from hospital to home with support of her friends/neighbors Note 12-13-2023 Telephone Encounter - Ira Rojas - 12/13/2023 11:57 AM EST Note Date & Type Note Facility 12-13-2023 Miscellaneous Notes Formattin g of this note might be different from the original. Okay to sign and send documented in this encounter [facility] Telephone encounter Note 12-13-2023 Telephone Encounter - Ira Rojas - 12/13/2023 11:57 AM EST Note Date & Type Note Facility 12-13-2023 Telephone encount er Note Okay to sign and send [facility] Evaluation note Note Date & Type Note Facility Evaluation note Diagnosis General weakness- Primary Other malaise and fatigue History of falling documented in this encounter [facility] Instructions Note Date & Type Note Facility Instructions Not on filedocumented in this en counter [facility] Summary Purpose Family History No Family History Records FoundNo Family History Records FoundNo Family History Records FoundNo Family History Records FoundNo Family History Records FoundNo Family History Records FoundNo Family History Records FoundNo Family History Records FoundNo Family History Records Found Advance Directives No Advanced Directives Records FoundDocuments on File Type Date Recorded 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 07/16/2021 3:45 PM Living Will 07/16/2021 3:40 PM Latest Code Status on File Code Status Date Activated Date Inactivated Comments Full Code 03/02/2023 4:15 AM 03/03/2023 3:57 PM Code Status History Code Status Date Activated Date Inactivated Comments Full Code 07/03/2021 9:57 AM 07/10/2021 6:07 PM Full Code 01/04/2018 4:32 PM 01/06/2018 6:44 PM Full Code 01/14/2017 8:37 AM 01/15/2017 5:28 PM Additional Source Comments INFORMATION SOURCE (unrecogn ized section and content) DATE CREATED AUTHOR 05/13/2018 [facility] DATE CREATED AUTHOR AUTHOR'S ORGANIZ ATION 05/16/2018 [facility] DATE CREATED AUTHOR AUTHOR'S ORGANIZ ATION [facility] DATE CREATED AUTHOR AUTHOR'S ORGANIZ ATION 11/13/2022 [facility] DATE CREATED AUTHOR AUTHOR'S ORGANIZ ATION 12/07/2022 [facility] dical Specialist DATE CREATED AUTHOR AUTHOR'S ORGANIZ ATION 09/11/[address] [facility] DATE CREATED AUTHOR AUTHOR'S ORGANIZ ATION 12/04/2023 [facility] DATE CREATED AUTHOR AUTHOR'S ORGANIZ ATION 12/06/2023 [facility] DATE CREATED AUTHOR AUTHOR'S ORGANIZ ATION 12/29/2023 [facility] dical Specialists EPIC Reason for Visit (unrecogniz ed section and content) Reason Onset Date Comments Med Refill 12/13/2023 Specialty Diagnoses / Procedures Referred By Violette staley Referred To Contact Physical Therapy Diagnoses Muscle weakness (generalized) Procedures TREATMENT Bia Cao MD [address] [place] [address] Elmer Pettit, PT [address] [place] [address] Referral ID Status Reason Start Date Expiration Date V isits Requested Visits Authorized [id number] Authorized 12/08/2023 06/05/2024 99 99 Care Teams (unrecognized sec tion and content) [employer] Technician Relationship Specialty Start Date End Date Bia Cao MD [address], [place] [phone] PCP - General Family Medicine 02/05/23 [employer] Rep[employer] Technician Relationship Specialty Start Date End Date Jacob Viveros PCP - [employer] 11/22/22 Bia Cao MD [address], [place] [phone] PCP - General Family Medicine 04/29/23 FOR RECORDS PERTAINING TO PATIENTS WHO ARE OR HAVE BEEN ENROLLED IN A CHEMICAL DEPENDENCY/SUBSTANCEABUSE PROGRAM, SOME INFORMATION MAY BE OMITTED. This clinical summary was aggregated from multiple sources. Caution should be exercised in using it in the provision of clinical care. This summary normalizes information from multiple sources, and as a consequence, information in this document may materially change the coding, format and clinical context of patient data. In addition, data may be omitted in some cases. CLINICAL DECISIONS SHOULD BE BASED ON THE PRIMARY CLINICAL RECORDS. [employer] [facility]. provides no warranty or guarantee of the accuracy or completeness of information in this document.
--- NOTE | 2023-12-30 11:45 | P.CN_ITS ---
Consult Note: HPI Data of Consult Patient: known to practice within the last 3 years Requesting Physician: Nisa Galarza NP Primary Care Provider: TRUE DAVIS Consult Narrative Reason for consult: f/u Narrative: Angela Ruth a pleasant 78 year old female presents for evaluation and management of chronic low back and right hip pain. Reports 75% pain relief and functional improvement after right hip injection. Patient here today and would like to discuss her chronic neck pain, pain has been getting worse over the last few weeks and she has a recent CT scan which is consistent with degenerative changes. Patient reports pain today 4/10 ache in right side of neck, pain increases to 8/10 with activity, twisting, bending, lifting, pain improved with lying down. Patient denies numbness tingling and weakness. Patient finds mild to moderate benefit from current medication regimen, without side effects, but continues to have moderate to severe pain impacting ADLs. MAGNO today 36% cc:: CC: Nisa Galarza NP Review of Systems 2 ROS0 Status of ROS 10 or more systems reviewed and unremark able except as noted in history and below Musculoskeletal Reports: back pain and neck pain Meds Home Medications and Allergies Home Medications Medication Instructions Recorded Confirmed Type buprenorphine 5 mcg/hour weekly 1 patch transdermal QWEEK pain #4 07/05/23 09/06/23 Rx transdermal patch (Butrans) ea acetaminophen 650 mg 1,300 mg PO Q8H PRN pain 07/07/23 09/06/23 History tablet,extended release (Arthritis Pain Relief (acetaminophen) ER) albuterol 90 mcg/actuation aerosol 90 mcg inhalation .every 4 hours 07/07/23 09/06/23 History inhaler PRN shortness of breath or wheezing alendronate 35 mg tablet 35 mg PO QWEEK 07/07/23 09/06/23 History amitriptyline 50 mg tablet 50 mg PO DAILY 07/07/23 09/06/23 History ascorbic acid (vitamin C) 500 mg 500 mg PO BID 07/07/23 09/06/23 History tablet,extended release (C Complex) aspirin 81 mg tablet,delayed 81 mg PO DAILY 07/07/23 09/06/23 History release (Adult Aspirin Regimen) atorvastatin 40 mg tablet 40 mg PO DAILY 07/07/23 09/06/23 History calcium carbonate 600 mg calcium 600 mg PO DAILY 07/07/23 09/06/23 History (1,500 mg) tablet (Calcium) carvedilol 25 mg tablet 25 mg PO BID 07/07/23 09/06/23 History cholecalciferol (vitamin D3) 50 200 mcg PO DAILY 07/07/23 09/06/23 History mcg (2,000 unit) tablet (Vitamin D3) cyclobenzaprine 10 mg tablet 10 mg PO QAM 07/07/23 09/06/23 History escitalopram oxalate 20 mg tablet 20 mg PO DAILY 07/07/23 09/06/23 History famotidine 20 mg tablet 20 mg PO DAILY 07/07/23 09/06/23 History fenofibrate 160 mg tablet 160 mg PO DAILY 07/07/23 09/06/23 History fexofenadine 180 mg tablet 180 mg PO DAILY 07/07/23 09/06/23 History hydralazine 100 mg tablet 100 mg PO TID 07/07/23 09/06/23 History pxivxnhkdnmda-qszcxjbqcsqag-hglgcedriehlb 2 cap PO 07/07/23 History 65 mg-100 mg-325 mg capsule levothyroxine 150 mcg capsule 150 mcg PO DAILY 07/07/23 09/06/23 History lisinopril 20 1 tab PO DAILY 07/07/23 09/06/23 History mg-hydrochlorothiazide 12.5 mg tablet magnesium 250 mg tablet 250 mg PO DAILY 07/07/23 09/06/23 History otvxexdx-vgn-ivsqx acid 0.4 1 tab PO DAILY 07/07/23 09/06/23 History mg-lycopene 300 mcg-lutein 250 mcg tablet (Centrum Silver) omeprazole 40 mg capsule,delayed 40 mg PO DAILY 07/07/23 09/06/23 History release oxybutynin chloride 10 mg 10 mg PO DAILY 07/07/23 09/06/23 History tablet,extended release 24 hr tizanidine 4 mg tablet 4 mg PO BID PRN muscle spasticity 07/07/23 09/23/23 History buprenorphine 7.5 mcg/hour weekly 1 patch transdermal Q7D #4 ea 07/19/23 09/06/23 Rx transdermal patch (Butrans) buprenorphine 7.5 mcg/hour weekly 1 patch transdermal QWEEK #4 ea 07/19/23 09/06/23 Rx transdermal patch (Butrans) buprenorphine 7.5 mcg/hour weekly 1 patch transdermal Q7D #4 ea 08/24/23 09/06/23 Rx transdermal patch (Butrans) buprenorphine 5 mcg/hour weekly 1 patch transdermal QWEEK pain #4 09/23/23 Rx transdermal patch (Butrans) ea buprenorphine 7.5 mcg/hour weekly 1 patch transdermal Q7D #4 ea 09/29/23 Rx transdermal patch (Butrans) buprenorphine 7.5 mcg/hour weekly 1 patch transdermal Q7D #4 ea 11/02/23 Rx transdermal patch (Butrans) buprenorphine 7.5 mcg/hour weekly 1 patch transdermal Q7D #4 ea 12/02/23 Rx transdermal patch (Butrans) buprenorphine 7.5 mcg/hour weekly 1 patch transdermal Q7D #4 ea 12/02/23 Rx transdermal patch (Butrans) buprenorphine 7.5 mcg/hour weekly 1 patch transdermal Q7D #4 ea 12/30/23 Rx transdermal patch (Butrans) Allergies Allergy/AdvReac Type Severity Reaction Status Date / Time adhesive tape Allergy Verified 09/06/23 09:06 Influenza Virus Vaccines Allergy Verified 09/06/23 09:06 lincomycin [From Lincocin] Allergy Verified 09/06/23 09:06 Penicillins Allergy Verified 09/06/23 09:06 Exam Constitutional Documenting provider has reviewed patient's vital signs: yes Common normals: no apparent distress, oriented x3, healthy appearing, alert and well nourished General appearance: cooperative HENMT Common normals: normocephalic, hearing grossly normal bilaterally and moist oral mucous membranes Head and scalp: normocephalic Eye Common normals: PERRL Pupil: PERRL Neck & C-Spine Common normals: full ROM General: normal visual inspection Cervical spine: cervical ROM abnormal and pain with cervical ROM Other: negative spurlings positive facet loading right c2-3 c3-4 pain with rotation and flexion strength 5/5 in BUE Neck images: 2 1. Chest Common normals: inspection of chest normal Respiratory Common normals: normal respiratory effort, no retractions and no use of accessory muscles Back & Pelvis Lumbar spine/lower back: ROM limited, pain with ROM and straight leg raise negative bilaterally Neuro Common normals: oriented x3, CN's II-XII intact bilaterally, moves all extremities, no focal motor deficits, no sensory deficits noted and deep tendon reflexes 2+ bilaterally Sensorium/orientation: alert Motor exam: strength 5/5 throughout and no movement abnormalities noted Psych Common normals: mental status grossly normal, thought process normal, cooperative, affect normal, speech normal and activity/motor behavior normal Speech: normal speech Thought process: normal thought process Assessment and Plan Assessment and Plan (1) Cervical spondylosis: (2) Chronic prescription opiate use: Assessment and Plan: I feel these medications are improving the patient's quality of life and allow them to tolerate activities of daily living as well as participate in recreational activity.? The patient does not report intolerable side effects. The patient is NOT opioid naive and non-pharmacologic and non-opioid treatment has failed to significantly relieve the patient's pain and improve functionality. The patient has a diagnosis that is related to a somatic or visceral pain etiology. ? ?? I reviewed with the patient the potential risks and side effects with the use of? opioid medications including but not limited to respiratory depression,? sedation, and even . I verified the patient has access to naloxone should? these effects occur. I advised the patient to avoid the use of any other? sedation substances including alcohol, THC, and benzodiazepines while? taking opioid medications due to the risk of compounding side effects and? detrimental outcomes. I reviewed the [employer], pain treatment agreement, urine? drug screen, and opioid start talking forms. The patient was advised to let? their family know they had Naloxone in case they would need to administer? the medication.? ?? A drug screen was completed within the last year, and no aberrancies were noted regarding their use of controlled substances. The patient understands they are subject to the terms and conditions of the pain contract that they have signed. ? ?? I have checked an [facility] report on this patient today and there are no aberrancies noted in the prescribing history.? (3) Muscle spasm: (4) Osteoarthritis of right hip: (5) Lumbar postlaminectomy syndrome: (6) Degenerative cervical disc: Plan update cervical xray with flexion and extension right C2-3 C3-4 MBB x2 working towards thermal RFA continue current medications, tolerating well without side effects continues to find benefit update uds today f/u 1 week after procedure
== END 2023-12-30 10:59 | disposition home or self-care (01) ==
PROVIDERS: PCP Family Medicine; Visit Provider Nurse Practitioner
DX: M47.812 Spondylosis without myelopathy or radiculopathy, cervical region (principal); Z79.891 Long term (current) use of opiate analgesic; M62.838 Other muscle spasm; M16.7 Other unilateral secondary osteoarthritis of hip; M96.1 Postlaminectomy syndrome, not elsewhere classified; M50.30 Other cervical disc degeneration, unspecified cervical region
CPT/HCPCS: G0463

== ENCOUNTER 2024-01-04 14:03 | Outpatient (OUT) | payer MEDICARE, SELFPAY ==
--- NOTE | 2024-01-04 14:11 | XR_ITS ---
The [address] [address] Patient Name: BOOKER DEJESUS MRN: [id number] date: 1945 Sex: F Assigned Patient Location: [facility] Current Patient Location: [facility] Accession/Order Number: [id number] Exam Date: 01/04/2024 14:20 Report Date: 01/04/2024 15:55 At the request of: ILIA QUINTERO Procedure: XR cervical spine w flex/ext EXAMINATION: XR cervical spine w flex/ext HISTORY: Neck Pain COMPARISON: No relevant comparison available. FINDINGS: BONES: Normal alignment of the cervical vertebral bodies with no acute fracture. 2 mm anterolisthesis of C4 on C5 in neutral projection, this increases to 3 mm with flexion and is stable with extension On neutral projection. 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 DISC SPACES: Normal. No significant disc height narrowing, subluxation, or endplate abnormality. PARASPINOUS: Negative. No paraspinous abnormality is seen. OTHER: Negative. XR/XR cervical spine w flex/ext IMPRESSION: Mild to moderate degenerative changes 2 mm anterolisthesis of C4 on C5 with minimal dynamic instability, increasing to 3 mm during flexion Electronically authenticated by: TISHA ARCE Date: 01/04/2024 15:55
--- OUTSIDE RECORDS SUMMARY | 2024-01-04 14:26 | XMS_ITS | CCD ---
Author Name Unknown Address [address] [facility] [address] [place] [address] Organization [facility] Care Team Providers Care Car Shunter Name Role Phone KALIA GILL Unavailable Unavailable RENA HERNANDEZ Unavailable Unavailabl e KALIA GILL Unavailable Unavailable LENNY PEDRAZA Unavailable Unavailable AUDREY HORN Unavailable Unavailable AUDREY HORN Unavailable Unavailable LENNY PEDRAZA Unavailable Unavailable BIA CAO F Primary Care Unavailable BIA CAO Primary Care Unavailable Jade GARCIA, Adelfo Arredondo Attending Unavailable Jade GARCIA, Adelfo Arredondo Attending Unavailable Jade GARCIA, Adelfo Arredondo Attending Unavailable LALIT RICHARD Attending Unavailable NASH BIA F Referring Unavailable BIA CAO F Primary Care Unavailable JOHN JOHNSON Referring Unavailable BIA CAO Primary Care Unavailable Nash GARCIA, Bia Mccormick Primary Care Provider Jacob Viveros Unavailable Unavailable Bia Cao MD Primary Care Provider [phone] BIA CAO F Attending Unavailable NASH, BIA F Attending Unavailable SANTO GARCIA Attending Unavailable ELMER PETTIT Attending Unavailable NASH, BIA F Referring Unavailable RIA SNYDER Attending Unavailable NASH, BIA F Referring Unavailable SNYDERRIA Attending Unavailable NASH, BIA F Referring Unavailable NASH, BIA F Attending Unavailable ELMER PETTIT Attending Unavailable NASH, BIA F Referring Unavailable SNYDERRIA Attending Unavailable NASH, BIA F Referring Unavailable ELMER PETTIT Attending Unavailable NASH, BIA F Referring Unavailable SNYDERRIA Attending Unavailable NASH, BIA F Referring Unavailable SNYDERRIA Attending Unavailable NASH, BIA F Referring Unavailable SNYDERRIA Attending Unavailable NASH, BIA F Referring Unavailable Allergies Allergy Classification Reported Allergen(s) Allergy Type Date of Onset Reaction(s) Facility (4 sources) Adhesive agent; Translations: [ADHESIVE] Propensity to adverse reactions to drug (disorder) 11-04-20 16 [facility] Repository (7 sources) aspartame; Translations: [ASPARTAME] Drug Allergy 02-13-20 17 Other (See Comments), Unknown [facility] Repository (7 sources) clavulanic acid; Translations: [CLAVULANIC ACID] Drug Allergy 02-13-20 17 Rash [facility] Repository (1 source) egg white (chicken) allergenic extract; Translations: [EGG WHITE] Drug [facility] lincomycin; Translations: [LINCOMYCIN] Drug Allergy 08-14-20 11 Anaphylaxis, [facility] Repository (4 sources) Lincosamides (Antibiotic); Translations: [LINCOSAMIDES] Propensity to adverse reactions to drug (disorder) 02-13-20 17 Anaphylaxis [facility] Repository (4 sources) oxaprozin; Translations: [OXAPROZIN] Drug Allergy 11-04-20 16 [facility] Repository (7 sources) Penicillins; Translations: [PENICILLINS] Propensity to adverse reactions to drug (disorder) 11-04-20 16 [facility] Repository (4 sources) INFLUENZA VIRUS VACCINES; Translations: [INFLUENZA VIRUS VACCINES] Propensity to adverse reactions to drug (disorder) 02-13-20 17 Swelling [facility] Repository (7 sources) CLEMIZOLE; Translations: [CLEMIZOLE] Propensity to adverse reactions to drug (disorder) 02-13-20 17 [facility] Repository (7 sources) AMOXICILLIN-POT CLAVULANATE; Translations: [AMOXICILLIN-POT CLAVULANATE] Propensity to adverse reactions to drug (disorder) 08-14-20 11 [facility] Repository (3 sources) chicken allergenic extract; Translations: [POULTRY] Drug Allergy 03-02-20 23 [facility] Repository (3 sources) egg shell membrane; Translations: [EGGSHELL MEMBRANE] Propensity to adverse reactions to food (disorder) 11-04-20 16 [facility] Repository (6 sources) Indomethacin; Translations: [INDOMETHACIN] Drug Allergy 05-02-20 21 Hypotension, Unknown [facility] Repository (6 sources) Sulfamethoxazole / Trimethoprim; Translations: [SULFAMETHOXAZOLE-T RIMETHOPRIM] Drug Allergy 10-22-20 Hives [facility] Repository (3 sources) Sulfonamides (Antibiotic); Translations: [SULFA (SULFONAMIDE ANTIBIOTICS)] Propensity to adverse reactions to drug (disorder) 11-11-20 Hives [facility] Repository (6 sources) OTHER; Translations: [OTHER] Propensity to adverse reactions (disorder) 02-13-20 17 Other (See Comments), Swelling [facility] Repository (3 sources) Influenza Vaccines Drug Allergy 06-04-20 23 Rash [facility] (3 sources) Lincomycin Drug Allergy 12-01-19 22 Unknown [facility] (3 sources) Sulfonamides (Antibiotic) Drug Intolerance 11-11-20 22 [facility] (3 sources) Eggs Or Egg-Derived Products Drug Allergy 08-14-20 11 Swelling, Unknown [facility] (3 sources) Poultry Meal Propensity to adverse reactions 03-02-20 [facility] (3 sources) Wound Dressing Adhesive Drug Allergy 06-04-20 Rash [facility] Medications Current Medications Medication Drug Class(es) Dates [...] mg / caffeine 40 mg oral tablet (4 sources) Barbiturate, Central Nervous System Stimulant, Methylxanthine Start: 04-23-2023 take 1 tablet by mouth every four hours as needed butalbital-acetami nophen-caffeine 50-325-40 MG tablet Take 1 tablet by mouth every 4 (four) hours if needed. 0 04/23/2023 Active [id number] 200 actuat albuterol 0.09 mg/actuat metered dose inhaler (4 sources) beta2-Adrenergic Agonist Start: 06-04-2023 take 2 [...] Active alendronic acid 70 mg oral tablet (5 sources) Bisphosphonate Start: 12-13-2023 take 1 tablet [...] 07/21/2023 Active take 1 tablet by margo once daily alendronate (Fosamax) 35 MG tablet 1 tablet 30 minutes before the first food, beverage or medicine of the day with plain water Orally weekly 0 Active amitriptyline hydrochloride 50 mg oral tablet (4 sources) Tricyclic Antidepressant Start: 11-17-2023 End: 11-16-2024 take 1 tablet by mouth at bedtime amitriptyline (Elavil) 50 MG tablet Indications: Primary insomnia Take 1 tablet (50 mg) by mouth at bedtime 90 tablet 3 11/17/2023 11/16/2024 Active ascorbic acid 1000 mg oral tablet (4 sources) Vitamin C Ascorbic Acid (vitamin C) 1000 MG tablet 1 (one) time each day at the same time. 0 Active take 2 tablets by mouth in the m orning ascorbic acid (VITAMIN C) 500 mg tablet Take 2 tablets (1,000 mg total) by mouth in the morning. 0 Active aspirin 81 mg delayed release oral tablet (4 sources) Platelet Aggregation Inhibitor, Nonsteroidal Anti-inflammatory Drug take 1 tablet by mouth in the morning aspirin 81 MG EC tablet Take 81 mg by mouth in the morning. 0 Active atorvastatin 40 mg oral tablet (5 sources) HMG-CoA Reductase Inhibitor Start: 024 take 1 tablet by mouth once daily atorvastatin (Lipitor) 40 MG tablet Indications: Mixed hyperlipidemia (CMS/HCC) take 1 tablet by mouth once daily 90 tablet 3 01/03/2024 Active Start: 03-15-2022 End: 01-03-2024 take 1 tablet by mouth in the morning atorvastatin (LIPITOR) 40 mg tablet Take 1 tablet (40 mg total) by mouth in the morning. 0 03/15/2022 Active benzonatate 200 mg oral capsule (1 source) Non-narcotic Antitussive Start: 11-23-2023 take 1 capsule by mouth three times daily as needed for cough benzonatate (TESSALON PERLES) 200 mg capsule TAKE 1 CAPSULE BY MOUTH THREE TIMES A DAY NEEDED FOR COUGH FOR UP TO 7 DAYS 0 11/23/2023 Active 168 hr buprenorphine 0.0075 mg/hr transdermal system (4 sources) Partial Opioid Agonist Start: 07-20-2023 apply 1 dose transdermal route every week buprenorphine (BUTRANS) 7.5 mcg/hour patch weekly Place 1 patch on the skin once a week. 0 07/20/2023 Active calcium carbonate 1500 mg / cholecalciferol 800 unt oral tablet (4 sources) Vitamin D Calcium Carb-Cholecalcife rol 600-20 MG-MCG tablet Take 600 mg by mouth at bedtime. 0 Active carvedilol 25 mg oral tablet (4 sources) alpha-Adrenergic To, beta-Adrenergic To Start: 12-04-2022 take 1 tablet by mouth in the [...] Active cholecalciferol 0.025 mg ora l tablet (4 sources) Vitamin D cholecalciferol (Vitamin D-3) 25 [...] 11/23/2023 Active escitalopram 20 mg oral tablet (4 sources) Serotonin Reuptake Inhibitor Start: 12-15-2023 End: [...] 0 Active famotidine 20 mg oral tablet (4 sources) Histamine-2 Receptor Antagonist Start: 11-29-2023 take 1 tablet by mouth once daily famotidine (PEPCID) 20 mg tablet Take 1 tablet (20 mg total) by mouth nightly. 90 tablet 3 11/29/2023 Active fenofibrate 160 mg oral tablet (4 sources) Peroxisome Proliferator Receptor alpha Agonist Start: 10-26-2023 End: 10-25-2024 take 1 tablet by mouth in the morning fenofibrate (Triglide) 160 MG tablet Indications: Hyperlipidemia, unspecified hyperlipidemia type (CMS/HCC) Take 1 tablet (160 mg) by mouth in the morning. 100 tablet 3 10/26/2023 10/25/2024 Active fexofenadine hydrochloride 180 mg oral tablet (4 sources) Histamine-1 Receptor Antagonist fexofenadine (Ally Allergy) 180 MG tablet 1 (one) time each day at the same time. 0 Active fluticasone propionate 0.05 mg/actuat metered dose nasal spray (4 sources) Corticosteroid Start: 08-23-2023 End: 08-22-2024 take [...] Active hydrALAZINE hydrochloride 100 mg oral tablet (4 sources) Arteriolar Vasodilator Start: 07-26-2023 take 1 tablet by mouth in the morning hydrALAZINE (Apresoline) 100 MG tablet Take 100 mg by mouth in the morning. 0 07/26/2023 Active hydroCHLOROthiazide 12.5 mg / lisinopril 20 mg oral tablet (4 sources) Thiazide Diuretic, Angiotensin Converting Enzyme Inhibitor [...] Active lactobacillus acidophilus 16 mg oral capsule (3 sources) Lactobacillus (F lorajuanjo Women) capsule as directed Orally 0 Active levothyroxine sodium 0.15 mg oral tablet (4 sources) yrox ine Star t: 01-21 take 1 tablet by mouth in the morning levothyroxine (Synthroid, Levoxyl) 150 MCG tablet 1 tablet in the morning on an empty stomach Orally Mon thru Wed, skip Wednesday 0 02/10/2023 Active Magnesium (4 sources) take 500 mg by mouth in [...] Active meclizine hydrochloride 25 mg oral tablet (3 sources) Antiemetic meclizine (Antiv ert) 25 MG tablet Take 25 mg by mouth. 0 Active multivitamin with minerals (Centrum) 9-200 mg-mcg tablet split tablet (3 sources) multivitamin wit h minerals (Centrum) 9-200 mg-mcg tablet split tablet multivitamin Multiple Vitamins 0 Active NIFEdipine 60 mg osmotic 24 hr extended release oral tablet (4 sources) Dihydropyridine Calcium Channel To Start: 023 take 1 tablet by mouth every twenty-four hours in the morning NIFEdipine XL (Procardia XL) 60 MG 24 hr tablet Take 60 mg by mouth in the morning. 0 04/23/2023 Active omeprazole 40 mg delayed release oral capsule (4 sources) Proton Pump Inhibitor Start: take 1 capsule by mouth in the morning omeprazole (PriLOSEC) 40 mg capsule Indications: Gastroesophageal reflux disease, unspecified whether esophagitis present Take 1 capsule (40 mg total) by mouth in the morning. 180 capsule 3 11/29/2023 Active 24 hr oxybutynin chloride 10 mg extended release oral tablet (5 sources) Cholinergic Muscarinic Antagonist Start: 024 take 1 tablet by mouth once daily oxybutynin XL (Ditropan-XL) 10 MG 24 hr tablet Indications: Stress incontinence of urine take 1 tablet by mouth once daily 90 tablet 3 01/03/2024 Active Start: 11-21-2020 take 1 tablet by margo th once daily at breakfast oxybutynin XL (DITROPAN-XL) 10 mg 24 hr tablet Take 1 tablet (10 mg total) by mouth daily with breakfast. 0 11/21/2020 Active End: 01-03-2024 take 1 tablet by mouth every twenty-four hours in the morning oxybutynin XL (Ditropan-XL) 10 MG 24 hr tablet Take 10 mg by mouth in the morning. 0 01/03/2024 Discontinued therapeutic multivitamin (THERAGRAN) tablet (1 source) take 1 tablet by mouth once daily at dinner therapeutic multivitamin (THERAGRAN) tablet Take 1 tablet by mouth daily with dinner. 0 Active tiZANidine 4 mg oral tablet (4 sources) Central alpha-2 Adrenergic Agonist Start: 3 take 2 tablets by mouth once daily tiZANidine (ZANAFLEX) 4 mg tablet Take 2 tablets (8 mg total) by mouth nightly. 0 03/03/2023 Active take 1 tablet by mouth once halley y tiZANidine (Zanaflex) 4 MG tablet take 0.5 to 2 tablets by mouth nightly 0 Active ubrogepant 100 mg oral tablet (4 sources) Ubrogepant (Ubre lvy) 100 MG tablet 1 (one) time each day at the same time. 0 Active zafirlukast 20 mg oral tablet (4 sources) Leukotriene Receptor Antagonist Start: 4 End: [...] Problem Date Documented Da te Episodic/Chronic Asthma (3 sources) Asthma; Translations: [Unspecified asthma, uncomplicated] Onset: 6 06-04-2023 Chronic Chronic kidney disease (3 sources) Chronic kidney disease stage 3B ; Translations: [Stage 3b chronic kidney disease (CKD)] Onset: 3 06-04-2023 Chronic Complications of surgical procedures or medical care (3 sources) Drug-induced hypotension; Translations: [Hypotension due to drugs] Onset: 1 05-23-2021 Episodic Conduction disorders (3 sources) First degree atrioventricular block; Translations: [Atrioventricular block, first degree] Onset: 1 06-04-2023 Chronic Disorders of lipid metabolism (6 sources) Hyperlipidemia; Translations: [Other hyperlipidemia] Onset: 5 10-26-2017 Chronic Esophageal disorders (5 sources) Gastro-esophageal reflux disease without esophagitis; Translations: [Gastroesophageal reflux disease without esophagitis] Onset: 1 09-15-2021 Chronic Essential hypertension (4 sources) Essential hypertension; Translations: [Essential (primary) hypertension] Onset: 3 03-02-2023 Chronic Fracture of upper limb (1 source) Displaced fracture of proximal phalanx of left little finger, subsequent encounter for fracture with routine healing; Translations: [Displaced fracture of proximal phalanx of left little finger, subsequent encounter for fracture with routine healing] Onset: 2 Episodic Genitourinary symptoms and ill-defined conditions (4 sources) Mixed urinary incontinence; Translations: [Mixed incontinence] Onset: 0 06-04-2023 Chronic Malaise and fatigue (2 sources) Asthenia; Translations: [Weakness] Onset: 6 11-04-2016 Episodic Miscellaneous mental health disorders (4 sources) Psychophysiologic insomnia; Translations: [Psychophysiologic insomnia] Onset: 9 12-12-2018 Chronic Mood disorders (8 sources) Depressive disorder; Translations: [Other specified depressive episodes] Onset: 7 02-12-2017 Chronic Nausea and vomiting (1 source) Postoperative nausea and vomiting; Translations: [Nausea with vomiting, unspecified] 06-24-2021 Episodic Osteoarthritis (3 sources) Osteoarthritis of right knee joint; Translations: [Unilateral primary osteoarthritis, right knee] Onset: 1 06-04-2023 Chronic Osteoporosis (7 sources) Age-related osteoporosis without current pathological fracture; Translations: [Senile osteoporosis] Onset: 0 Resolved: 3 06-04-2023 Chronic Other and ill-defined heart disease (1 source) Diastolic dysfunction; Translations: [Other ill-defined heart diseases] Onset: 1 05-23-2021 Chronic Other and ill-defined heart disease (1 source) Left ventricular hypertrophy; Translations: [Cardiomegaly] Onset: 1 05-23-2021 Chronic Other connective tissue disease (3 sources) Cramp in lower limb; Translations: [Sleep related leg cramps] Onset: 3 06-04-2023 Chronic Other connective tissue disease (1 source) Trigger finger, right ring finger; Translations: [Trigger finger, right ring finger] Onset: 8 Episodic Other connective tissue disease (1 source) Pain in left hand; Translations: [Pain in left hand] Onset: 2 Episodic Other gastrointestinal disorders (4 sources) Chronic idiopathic constipation; Translations: [Chronic idiopathic constipation] Onset: 9 07-10-2019 Chronic Other hereditary and degenerative nervous system conditions (4 sources) Essential tremor; Translations: [Essential tremor] Onset: 9 12-12-2018 Chronic Other injuries and conditions due to external causes (4 sources) History of fall; Translations: [History of [...] Spondylosis; intervertebral disc disorders; other back problems (16 sources) Prolapsed lumbar intervertebral disc; Translations: [Other intervertebral disc displacement, lumbar region] Onset: 1 Resolved: 3 01-07-2017 Chronic Thyroid disorders (4 sources) Acquired hypothyroidism; Translations: [Hypothyroidism, unspecified] Onset: [...] 01-04-2018 Resolved: 07-01-2021 07-01-2021 Chronic Adjustment disorders (3 sources) Adjustment disorder with anxious mood; Translations: [Adjustment disorder with anxiety] Onset: 05-04-2023 Resolved: 10-24-2023 10-24-2023 Chronic Calculus of urinary tract (4 sources) Kidney stone; Translations: [Calculus of kidney] Onset: 03-02-2023 03-02-2023 Episodic Headache; including migraine (4 sources) Migraine without aura, not refractory ; Translations: [Migraine without aura, not intractable, without status migrainosus] Onset: 12-12-2018 Resolved: 10-24-2023 12-12-2018 Chronic Mood disorders (4 sources) Mood disorders Onset: 04-23-2023 Resolved: 12-06-2023 04-23-2023 Other circulatory disease (1 source) Low blood pressure; Translations: [Hypotension, unspecified] Onset: 03-02-2023 03-02-2023 Episodic Other connective tissue disease (4 sources) Bilateral trochanteric bursitis; Translations: [Trochanteric bursitis, [...] 06-12-2019 06-12-2019 Episodic Other connective tissue disease (3 sources) Recurrent falls ; Translations: [Repeated falls] Onset: 11-01-2017 06-04-2023 Episodic Other connective tissue disease (3 sources) History of lumbar fusion; Translations: [Arthrodesis status] [...] of mental health and substance abuse codes (4 sources) H/O: depression; Translations: [Personal history of other mental and behavioral disorders] Onset: 2018 2018 Episodic Spondylosis; intervertebral disc disorders; other back problems (20 sources) Lumbago with sciatica, unspecified side; Translations: [...] Ann MD on 12/06/2023 2:10 AM Normal [facility] CT Abdomen/Pelvis w + w/o Co ntraston [...] by Felix Dominguez on 12/07/2022 1159 Normal [facility] [place] [employer] Claim [employer] XR HAND LEFT (MIN 3 VIEWS)on 11-07-2022 [...] Matt Cowart MD 11/07/22 Final result Normal [facility] XR HAND LEFT (MIN 3 VIEWS) 3 [...] Matt Cowart MD 11/07/22 Final result Normal [facility] XR Chest 2 Views*on 09-10-20 XR Chest [...] by Bartolome Monson on 09/10/2022 1507 Normal [facility] Complete Blood Count with Au to Diffon 12-11-2021 Basophils (Bld) [#/Vol] 0.07 10*3/uL Normal 0.00-0.20 [facility] Specialist Comment on above: Performed By: #### CMP, CBCAD #### [facility] [address] [place], [place] [id number] Basophils/100 WBC (Bld) 0.9 % Normal [facility] Comment on above: Performed By: #### CMP, CBCAD #### [facility] [address] [place], [place] [id number] Eosinophils (Bld) [#/Vol] 0.17 10*3/uL Normal 0.02-0.50 [facility] Specialist Comment on above: Performed By: #### CMP, CBCAD #### [facility] [address] [place], [place] [id number] Eosinophils/10 0 WBC (Bld) 2.3 % Normal [facility] [employer] Claim [employer]er Comment on above: Performed By: #### CMP, CBCAD #### [facility] [address] [place], [place] [id number] Erythrocyte distribution width (RBC) [Ratio] 16.4 % High 11.0-15.0 [facility] [employer] Claim [employer]er Comment on above: Performed By: #### CMP, CBCAD #### [facility] [address] [place], [place] [id number] Hematocrit (Bld) [Volume fraction] 42.9 % Normal 35.0-47.0 [facility] [employer] Claim Examiner Comment on above: Performed By: #### CMP, CBCAD #### [facility] [address] [place], [place] [id number] Hemoglobin (Bld) [Mass/Vol] 13.5 g/dL Normal 11.6-15.5 [facility] [employer] Claim Examiner Comment on above: Performed By: #### CMP, CBCAD #### [facility] [address] [place], [place] [id number] Lymphocytes (Bld) [#/Vol] 2.7 10*3/uL Normal 0.9-3.9 [facility] [employer] Claim Examiner Comment on above: Performed By: #### CMP, CBCAD #### [facility] [address] [place], [place] [id number] Lymphocytes/10 0 WBC (Bld) 36.1 % Normal [facility] [employer] Claim Examiner Comment on above: Performed By: #### CMP, CBCAD #### [facility] [address] [place], [place] [id number] MCH (RBC) [Entitic mass] 27.7 pg Normal 27.0-33.0 [facility] [employer] Claim Examiner Comment on above: Performed By: #### CMP, CBCAD #### [facility] [address] [place], [place] [id number] MCHC (RBC) [Mass/Vol] 31.5 g/dL Low 32.0-36.0 [facility] [employer] Claim Examiner Comment on above: Performed By: #### CMP, CBCAD #### [facility] [address] [place], [place] [id number] MCV (RBC) [Entitic vol] 88 fL Normal 80-100 [facility] [employer] Claim Examiner Comment on above: Performed By: #### CMP, CBCAD #### [facility] [address] [place], [place] [id number] Monocytes (Bld) [#/Vol] 0.8 10*3/uL Normal 0.2-0.9 [facility] [employer] Claim Examiner Comment on above: Performed By: #### CMP, CBCAD #### [facility] [address] [place], [place] [id number] Monocytes/100 WBC (Bld) 10.8 % Normal [facility] Specialist Comment on above: Performed By: #### CMP, CBCAD #### [facility] [address] [place], [place] [id number] Neutrophils (Bld) [#/Vol] 3.7 10*3/uL Normal 1.5-7.8 [facility] [employer] Claim Examiner Comment on above: Performed By: #### CMP, CBCAD #### [facility] [address] [place], [place] [id number] Neutrophils/10 0 WBC (Bld) 49.2 % Normal [facility] Specialist Comment on above: Performed By: #### CMP, CBCAD #### [facility] [address] [place], [place] [id number] Platelet mean volume (Bld) [Entitic vol] 11.00 fL Normal 7.50-12.50 [facility] [employer] Claim Examiner Comment on above: Performed By: #### CMP, CBCAD #### [facility] [address] [place], [place] [id number] Platelets (Bld) [#/Vol] 246 10*3/uL Normal 140-400 [facility] [employer] Claim Examiner Comment on above: Performed By: #### CMP, CBCAD #### [facility] [address] [place], [place] [id number] RBC (Bld) [#/Vol] 4.88 10*6/uL Normal 3.90-5.20 [facility] [employer] Claim Examiner Comment on above: Performed By: #### CMP, CBCAD #### [facility] [address] [place], [place] [id number] RDW-SD 53.1 fL High 37.0-50.0 [facility] [employer] Claim Examiner Comment on above: Performed By: #### CMP, CBCAD #### [facility] [address] [place], [place] [id number] WBC (Bld) [#/Vol] 7.5 10*3/uL Normal 3.8-11.0 [facility] [employer] Claim Examiner Comment on above: Performed By: #### CMP, CBCAD #### [facility] [address] [place], [place] [id number] Comprehensive Metabolic Pane becky 12-11-2021 Albumin [Mass/Vol] 4.2 g/dL Normal 3.6-5.1 [facility] [employer] Claim Examiner Comment on above: Performed By: #### CMP, CBCAD #### [facility] [address] [place], [place] [id number] Albumin/Globul in [Mass ratio] 1.7 {ratio} Normal 1.0-2.5 [facility] [employer] Claim Examiner Comment on above: Performed By: #### CMP, CBCAD #### [facility] [address] [place], [place] [id number] ALP [Catalytic activity/Vol] 71 U/L Normal 35-119 [facility] [employer] Claim Examiner Comment on above: Performed By: #### CMP, CBCAD #### [facility] [address] [place], [place] [id number] ALT [Catalytic activity/Vol] 12 U/L Normal 6-33 [facility] [employer] Claim Examiner Comment on above: Result Comment: 10/22/2021 Female referen ce range changed. Performed By: #### C MP, CBCAD #### [facility] [address] [place], [place] [id number] Anion gap [Moles/Vol] 18 mmol/L Normal 12-20 [facility] [employer] Claim Examiner Comment on above: Result Comment: Effective 11/27/2019 refer ence range changed. Performed By: #### C MP, CBCAD #### [facility] [address] [place], [place] [id number] AST [Catalytic activity/Vol] 15 U/L Normal 9-34 [facility] [employer] Claim Examiner Comment on above: Performed By: #### CMP, CBCAD #### [facility] [address] [place], [place] [id number] Bilirubin [Mass/Vol] 0.33 mg/dL Normal 0.30-1.20 [facility] [employer] Claim Examiner Comment on above: Performed By: #### CMP, CBCAD #### [facility] [address] [place], [place] [id number] BUN/CREA 35 Ratio High 6-22 [facility] Specialist Comment on above: Performed By: #### CMP, CBCAD #### [facility] [address] [place], [place] [id number] Calcium [Mass/Vol] 9.4 mg/dL Normal 8.6-10.2 [facility] Comment on above: Performed By: #### CMP, CBCAD #### [facility] [address] [place], [place] [id number] Chloride [Moles/Vol] 106 mmol/L Normal 98-107 [facility] Comment on above: Performed By: #### CMP, CBCAD #### [facility] [address] [place], [place] [id number] CO2 [Moles/Vol] 24 mmol/L Normal 20-31 [facility] Comment on above: Performed By: #### CMP, CBCAD #### [facility] [address] [place], [place] [phone] Creatinine [Mass/Vol] 0.9 mg/dL Normal 0.6-1.4 [facility] Autom[employer] Insurance Claim Examiner Comment on above: Performed By: #### CMP, CBCAD #### [facility] [address] [place], [place] [phone] eGFRAA 70 mL/min/1.73m2 Normal >60 [facility] [employer] Insurance Claim Examiner Comment on above: Performed By: #### CMP, CBCAD #### [facility] [address] [place], [place] [id number] eGFRNAA 58 mL/min/1.73m2 Low >60 [facility] [employer] Insurance Claim Examiner Comment on above: Performed By: #### CMP, CBCAD #### [facility] [address] [place], [place] [phone] Globulin (S) [Mass/Vol] 2.5 g/dL Normal 1.9-3.7 [facility] [employer] Insurance Claim Examiner Comment on above: Performed By: #### CMP, CBCAD #### [facility] [address] [place], [place] [phone] Glucose [Mass/Vol] 84 mg/dL Normal 65-99 [facility] Comment on above: Result Comment: For FASTING Glucose --- ADA reference ranges: Normal 65-99 mg/dl Prediabetes 100-125 Diabetes >/= 126 Performed By: #### C MP, CBCAD #### [facility] [address] [place], [place] [phone] Potassium [Moles/Vol] 4.3 mmol/L Normal 3.5-5.5 [facility] Comment on above: Performed By: #### CMP, CBCAD #### [facility] [address] [place], [place] [phone] Protein [Mass/Vol] 6.7 g/dL Normal 6.1-8.1 [facility] Specialist Comment on above: Performed By: #### CMP, CBCAD #### [facility] [address] [place], [place] [phone] Sodium [Moles/Vol] 143 mmol/L Normal 135-146 [facility] Specialist Comment on above: Performed By: #### CMP, CBCAD #### [facility] [address] [place], [place] [phone] Urea nitrogen [Mass/Vol] 33 mg/dL High 7-25 [facility] Comment on above: Performed By: #### CMP, CBCAD #### [facility] [address] [place], [place] [phone] Calciumon 06-20-2019 Calcium [Mass/Vol] 10.0 mg/dL Normal 8.4-10.2 [facility] Comment on above: Performed By: #### 1030, 1035, 4500, 451 0, 7720, 4581 #### [facility] Unless Otherwise Noted [address] [place] [address] / COLAnna #4724/ABISAI # [id number] Creatinineon 06-20-2019 Creatinine [Mass/Vol] 0.9 mg/dL Normal 0.5-1.0 [facility] Comment on above: Performed By: #### 1030, 1035, 4500, 451 0, 4520, 4581 #### [facility] Unless Otherwise Noted [address] [address] / COLA #4724/CLIA # [id number] Creatinine [Mass/Vol] 74.8 Kg Normal [facility] Comment on above: Performed By: #### 1030, 1035, 4500, 451 0, 4520, 4581 #### [facility] Unless Otherwise Noted [address] [address] / COLA #4724/CLIA # [id number] Creatinine [Mass/Vol] 64.8 ml/m1.73 Normal [facility] Comment on above: Performed By: #### 1030, 1035, 4500, 451 0, 4520, 4581 #### [facility] Unless Otherwise Noted [address] [address] / COLA #4724/CLIA # [id number] Creatinine [Mass/Vol] 65.1 ml/m1.73 Normal [facility] Diabetes [facility] Comment on above: Performed By: #### 1030, 1035, 4500, 451 0, 4520, 4581 #### [facility] Unless Otherwise Noted [address] [address] / COLA #4724/CLIA # [id number] Creatinine [Mass/Vol] 78.7 ml/m1.73 Normal Endocrine [facility] Diabetes [facility] Comment on above: Performed By: #### 1030, 1035, 4500, 451 0, 4520, 4581 #### [facility] Unless Otherwise Noted [address] [address] / COLA #4724/CLIA # [id number] FT3on 06-20-2019 FT3 2.80 pg/mL Normal 2.45-5.93 [facility] Comment on above: Performed By: #### 1030, 1035, 4500, 451 0, 4520, 4581 #### [facility] Unless Otherwise Noted [address] [facility] [address] [place] [address] / COLA #4724/CLIA # [id number] FT4on 06-20-2019 Free T4 [Mass/Vol] 1.93 ng/dL Normal 0.78-2.44 [facility] Comment on above: Performed By: #### 1030, 1035, 4500, 451 0, 4520, 4581 #### [facility] Unless Otherwise Noted [address] [facility] [address] [place] [address] / COLA #4724/CLIA # [id number] TSHon 06-20-2019 TSH Qn 0.57 uIU/ml Normal 0.47-4.68 [facility] Comment on above: Performed By: #### 1030, 1035, 4500, 451 0, 4520, 4581 #### [facility] Unless Otherwise Noted [address] [facility] [address] [place] [address] / COLA #4724/CLIA # [id number] VITAMIN D 25on 06-20-2019 VITAMIN D 25 51.5 ng/ml Normal 30.0-100.0 [facility] Comment on above: Result Comment: Deficient <20 Insufficient 20-<30 Sufficient 30-100 Potiential Toxicity >100 Performed By: #### 1 030, 1035, 4500, 4510, 4520, 4581 #### [facility] Unless Otherwise Noted [address] [facility] [address] [place] [address] / COLA #4724/CLIA # [id number] Basic Metabolic Profon 05-06 (cont.) Normal [facility] Comment on above: Result Comment: Average GFR for 70 or mo re years old: 75 mL/min/1.73sq mChronic Kidney Disease: <60 mL/min/1.73sq mKidney failure: <15 mL/min/1.73sq meGFR calculated using average adult body mass. Additional eGFR calculator available at:http://www.DotAlign/multiple_crcl_2012.htmPerformed at [facility] [address] [place] [address] Performed By: #### C DP, BMP ####[address] [place] [address] Anion gap 14 mmol/L Normal 9-17 [facility] Comment on above: Performed By: #### CDP, BMP ####[facility] [place] [address] Calcium 9.6 mg/dL Normal 8.6-10.4 [facility] Comment on above: Performed By: #### CDP, BMP ####[address] [place] [address] Chloride 106 mmol/L Normal 98-107 [facility] Comment on above: Performed By: #### CDP, BMP ####[address] [address] CO2 26 mmol/L Normal 20-31 [facility] Comment on above: Performed By: #### CDP, BMP ####[address] [address] Creatinine 0.91 mg/dL High 0.50-0.90 [facility] Comment on above: Performed By: #### CDP, BMP ####[address] [address] eGFR (non-black) mL/min/{1.73_m2} Normal >60 [facility] Comment on above: Performed By: #### CDP, BMP ####[address] [address] Glucose mass conc 99 mg/dL Normal 70-99 [facility] Comment on above: Performed By: #### CDP, BMP ####[address] [address] Potassium molar conc 4.2 mmol/L Normal 3.7-5.3 [facility] Comment on above: Performed By: #### CDP, BMP ####[address] [address] Sodium 146 mmol/L High 135-144 [facility] Comment on above: Performed By: #### CDP, BMP ####[facility] [place] [address] Urea nitrogen 21 mg/dL Normal 8-23 [facility] Comment on above: Performed By: #### CDP, BMP ####[address] [address] BUN/CRE Ratio NOT REPORTED Normal 9-20 [facility] Comment on above: Performed By: #### CDP, BMP ####[address] [address] Staging: NOT REPORTED Normal [facility] Comment on above: Performed By: #### CDP, BMP ####[address] [address] CBC with Diffon 05-06-2018 Abs. Basophil 0.10 k/uL Normal 0.0-0.2 [facility] Comment on above: Result Comment: Performed at [facility] [address] [place] [address] Performed By: #### C DP, BMP ####[facility] [place] [address] Abs.Neutrophil (Seg) 4.00 k/uL Normal 1.3-9.1 [facility] Comment on above: Performed By: #### CDP, BMP ####[facility] [place] [address] Basophils/100 WBC Auto (Bld) 1 % Normal 0-2 [facility] Comment on above: Performed By: #### CDP, BMP ####[address] [address] Eosinophils 0.20 10*3/uL Normal 0.0-0.4 [facility] Comment on above: Performed By: #### CDP, BMP ####[facility] [place] [address] Eosinophils/10 0 leukocytes 2 % Normal 0-4 [facility] Comment on above: Performed By: #### CDP, BMP ####[facility] [place] [address] Erythrocyte distribution width Auto Ratio (RBC) 13.9 % Normal 11.5-14.9 [facility] Comment on above: Performed By: #### CDP, BMP ####[address] [address] Erythrocytes (RBC) 4.68 10*6/uL Normal 4.0-5.2 [facility] Comment on above: Performed By: #### CDP, BMP ####[address] [address] Hematocrit (HCT) 41.8 % Normal 36-46 [facility] Comment on above: Performed By: #### CDP, BMP ####[facility] [place] [address] Hemoglobin mass conc (Bld) 13.7 g/dL Normal 12.0-16.0 [facility] Comment on above: Performed By: #### CDP, BMP ####[facility] [place] [address] Lymphocytes 3.20 10*3/uL Normal 1.0-4.8 [facility] Comment on above: Performed By: #### CDP, BMP ####[facility] [place] [address] Lymphocytes/10 0 leukocytes 39 % Normal 24-44 [facility] Comment on above: Performed By: #### CDP, BMP ####[facility] [place] [address] MCH 29.3 pg Normal 26-34 [facility] Comment on above: Performed By: #### CDP, BMP ####[facility] [place] [address] MCHC mass conc (RBC) 32.8 g/dL Normal 31-37 [facility] Comment on above: Performed By: #### CDP, BMP ####[facility] [place] [address] MCV 89.3 fL Normal 80-100 [facility] Comment on above: Performed By: #### CDP, BMP ####[facility] [place] [address] Monocytes 0.90 10*3/uL Normal 0.1-1.3 [facility] Comment on above: Performed By: #### CDP, BMP ####[facility] [place] [address] Monocytes/100 leukocytes 11 % High 1-7 [facility] Comment on above: Performed By: #### CDP, BMP ####[address] [address] Neutrophil (Seg) 47 % Normal 36-66 [facility] Comment on above: Performed By: #### CDP, BMP ####[address] [address] Platelet mean volume (PMV) 10.3 fL Normal 6.0-12.0 [facility] Comment on above: Performed By: #### CDP, BMP ####[address] [address] Platelets 232 10*3/uL Normal 150-450 [facility] Comment on above: Performed By: #### CDP, BMP ####[address] [address] WBC (Leukocytes) 8.4 10*3/uL Normal 3.5-11.0 [facility] Comment on above: Performed By: #### CDP, BMP ####[address] [address] Auto Diff Performed NOT REPORTED Normal [facility] Comment on above: Performed By: #### CDP, BMP ####[address] [address] Erythrocyte morphology NOT REPORTED Normal [facility] Comment on above: Performed By: #### CDP, BMP ####[address] [address] Erythrocytes (RBC) NOT REPORTED Normal [facility] Comment on above: Performed By: #### CDP, BMP ####[address] [address] Granulocytes/1 00 WBC (Bld) NOT REPORTED Normal 0.00-0.30 [facility] Comment on above: Performed By: #### CDP, BMP ####[facility] [facility] [place] [address] Immature granulocytes #/vol (Bld) NOT REPORTED Normal 0 [facility] Comment on above: Performed By: #### CDP, BMP ####[facility] [facility] [place] [address] Platelets NOT REPORTED Normal [facility] Comment on above: Performed By: #### CDP, BMP ####[facility] [facility] [place] [address] WBC Morphology NOT REPORTED Normal [facility] Comment on above: Performed By: #### CDP, BMP ####[facility] [facility] [place] [address] CNCOon 02-01-2018 CNCO Letter Carmenza vail, [facility] [address] [place] [address] / [facility] [address] [address] [address]Rena Hernandez, [address] [place], [place] [address]NAME: ANGELA DEJESUS [facility] NO.: [id number] Wiliamluís:I recently evaluated your patient, Angela Dejesus. As you recall, is a 72-year-old woman who complains of low back pain and, to alesser degree, bilateral leg pain. She has undergone three lumbar surgeriesin the past including an L3-L5 decompression with fusion and fixation [id number]. Conservative measures to date have not given [...] any other questions you have regarding Mrs. Dejesus, please donot hesitate to contact my office. Thank you for this consultation.Sincerely,Kalia Gill M.D.IHK:[facility] Normal [facility] CNOVon 01-27-2018 CNOV Office Visit (SPNSMN) ANGELA DEJEUSS ([id number]) 1945 FDate Time Provider Department01/27/18 12:40 PM KALIA GILL NSMN During your visit today, we recorded the following information about you: Pulse Respiration Blood pressure Weight 85/minute 18/minute 141/65 76.2 kg Height 1.651 Claudio Gill MD 01/27/2018 4:15 PM AddendumSPINE SURGERY NEW PATIENTPCP: No PCPREFERRING PROVIDER: Dr. Mayte Dejesus is a 72 year old female presenting [...] 3 previous lumbar spine surgeries (L4-5 hemidiscetomy, ([id number])) L3-5 decompression fusion and fixation (Beaks: 2009) [...] legDERMATOMAL DISTRIBUTION:Right: L5 and S1Left: L5 and [id number] STATUS: Impaired Community DistancesPREVIOUS CONSERVATIVE TREATMENTS:OTC NSAIDS [...] Wt 76.2 kg (168 lb) BMI 27.96 kg/k6JKNZMGH APPEARANCE: Well nourished, well developed, and no [...] with sciatica, sciaticalaterality unspecified (primary encounter diagnosis)Angela Dejesus does not require surgery at this time. Continue withconservative mgt per LMD.I reviewed the information obtained and documented by the resident. I examinedthe patient and evaluated all available films and pertinent documents. Wediscussed the case and I agree with the plans as outlined in this note.SIGNATURE: Kalia Gill MD PATIENT NAME: Angela DejesusDATE: January 27, 2018 : 1:07 PM PAGER:PTFReferring Provider: RENA HERNANDEZ [[id number]]Allergies As of Date: 01/27/2018 Noted Allergy ReactionLINCOSAMIDES [...] 2 - RashDate Reviewed: 01/27/2018Reviewed by: Valentine Good) JERALD Madrid - Fully AssessedReason for Visit: New Patient [172]Primary Visit Diagnosis:Chronic midline low back pain with sciatica, sciatica laterality unspecified [M54.40, G89.29]Order(s):XR LUMBAR MOTION 4V AP/LAT/ FLEX/EXT [[id number]] Order #: [id number] FUTUREPrescriptions as of 01/27/2018 Sig: ACETAMINOPHEN 500 [...] 20 MG CAPSULE,SHARI* 20 mg once daily. [id number]* 1 capsule four times daily as* CYCLOBENZAPRINE [...] Jan 27, 2018 11:58 AM Received from: [facility] [place] Received Sig: Take 500-1,000 mg by mouthevery 6 hours as needed. PROAIR HFA 90 MCG/ACTUATION AEROSOL INHALER >> Valentine [place], [place] 01/27/2018 11:58 AM >> VALENTINE MADRID Jan 27, 2018 11:58 AM Received from: External Pharmacy AMITRIPTYLINE 100 MG TABLET >> Valentine [place], [place] 01/27/2018 11:58 AM >> VALENTINE MADRID Jan 27, 2018 11:58 AM Received from: [facility] [place] Received Sig: Take 50 mg by mouth nightlyIndications: Treatment to Prevent Migraine Headaches ATORVASTATIN 40 MG TABLET >> Valentine [place], [place] 01/27/2018 11:58 AM >> VALENTINE MADRID Jan 27, 2018 11:58 AM [facility] Re[facility] Sig: Take 1 tablet (40 [...] Jan 27, 2018 11:58 AM Received from: [facility] Received Si,000 Units beforebreakfast Indications: Vitamin D Deficiency. DICLOFENAC SODIUM 75 MG TABLET,DELAYED RELEASE >> Valentine [place], [place] 01/27/2018 11:58 AM >> VALENTINE MADRID Jan 27, 2018 11:58 AM [facility] Received Sig: Take 75 mg by mouth 2(two) times a day as needed. MEDICAL INSTRUMENT CABLE FABRICATOR advises up to two tablets two days a week formigraines ESCITALOPRAM 20 MG TABLET >> Valentine [place], [place] 01/27/2018 11:58 AM >> VALENTINE MADRID Jan 27, 2018 11:58 AM Received from: [facility] [place] Received Sig: Take 20 mg by mouth [...] Jan 27, 2018 11:58 AM [facility] Sig: Take 160 mg by mouth daily. Indications: High Amount of Fats in the Blood FEXOFENADINE 180 MG TABLET >> Valentine [place], [place] 01/27/2018 11:58 AM >> VALENTINE MADRID Jan 27, 2018 11:58 AM Received from: [facility] Received Sig: Take 180 mg by mouthbefore breakfast Indications: Allergic Rhinitis. LEVOTHYROXINE 150 MCG TABLET >> Valentine [place], [place] 01/27/2018 11:58 AM >> VALENTINE MADRID Jan 27, 2018 11:58 AM Received from: External Pharmacy MECLIZINE 25 MG TABLET >> Valentine [place], [place] 01/27/2018 11:58 AM >> VALENTINE MADRID Jan 27, 2018 11:58 AM [facility] Sig: Take 25 mg by mouth 3 timesdaily as needed OMEPRAZOLE 20 MG CAPSULE,DELAYED RELEASE >> Valentine [place], [place] 01/27/2018 11:58 AM >> VALENTINE MADRID Jan 27, 2018 11:58 AM Received from: [facility] Received Si mg before breakfastIndications: Gastroesophageal Reflux. [id number] ALPHENAZONE 325 MG-65 MG-100 MG ORAL CAP >> Valentine [place], [place] 01/27/2018 11:58 AM >> VALENTINE MADRID Jan 27, 2018 11:58 AM [facility] Received Si (four) times a day asneeded for migraine. CYCLOBENZAPRINE 5 MG TABLET >> Valentine [place], [place] 01/27/2018 11:58 AM >> VALENTINE MADRID Jan 27, 2018 11:58 AM [facility] Received Sig: Take 10 mg by mouth 3(three) times a day as needed for muscle spasms. EZETIMIBE 10 MG-SIMVASTATIN 40 MG TABLET >> Valentine [place], [place] 01/27/2018 11:58 AM >> VALENTINE MADRID Jan 27, 2018 11:58 AM Received from: [place], [place] Received Sig: Take 1 tablet by mouthnightly. ESOMEPRAZOLE MAGNESIUM 40 MG CAPSULE,DELAYED RELEASE >> Valentine [place], [place] 01/27/2018 11:58 AM >> VALENTINE MADRID Jan 27, 2018 11:58 AM Received from: [place], [place] Received Sig: Take 40 mg by mouth everymorning (before breakfast). Indications: Gastroesophageal Reflux Disease METOCLOPRAMIDE 10 MG TABLET >> Valentine [place], [place] 01/27/2018 12:02 PM >> VALENTINE MADRID Jan 27, 2018 12:02 PM Received from: [place], [place] Received Sig: Take 10 mg by mouthcontinuous MAGNESIUM GLUCONATE 27 MG (500 MG) TABLET >> Valentine [place], [place] 01/27/2018 12:02 PM >> VALENTINE MADRID Jan 27, 2018 12:02 PM Received from: [place] Received Sig: Take 500 mg by mouth 2times daily TOPIRAMATE 100 MG TABLET >> Valentine [place], [place] 01/27/2018 12:05 PM >> VALENTINE MADRIDu Jan 27, 2018 12:05 PM Received from: External PharmacyProblem List As Of Date 01/27/2018 Noted Resolved Chronic midline low back pain with sciatica [M5*INVALID FOR* Status:Closed by KALIA GILL MD on 01/27/18 Normal [facility] PROGRESSon 01-27-2018 PROGRESS HNO ID: [id number] thor: Angela Lake RtService: (none)Author Type: (none)Type: Progress NotesFiled: 01/27/2018 2:25 PMNote Text: Radiology Service Progress NotePATIENT NAME: Angela DejesusMRN: [id number] OF SERVICE: January 27, 2018TIME: 2:25 PMPATIENT IDENTITY VERIFICATION COMPLETED USING TWO (2) METHODS: Patientconfirmed name verbally and Date of .PATIENT GENDER DATA: Female. status: : NoBreastfeeding status: NO.PATIENT RELEVANT IMPLANT DATA REVIEWED: Not ApplicableRADIOLOGY DEPARTMENT: General X-ray: Exam(s) Completed: Spine X-Ray(s):Lumbar AP / LAT / L5-S1 / FLEX-EXTPERIPHERAL IV DATA: Not applicableSIGNED BY: Angela Lake RtJanuary 27, 2018 2:25 PM Normal [facility] PROGRESS HNO ID: [id number] thor: Kalia Mata: (none)Author Type: PhysicianType: Progress NotesFiled: 01/27/2018 4:15 PMNote Text:SPINE SURGERY NEW PATIENTPCP: No PCPREFERRING PROVIDER: Dr. Mayte Dejesus is a 72 year old female presenting [...] hemidiscetomy,(Cedric 1989)) L3-5 decompression fusion and fixation (Beaks: 2009) andlumbar decompression (Alexy) 2017.She has also [...] legDERMATOMAL DISTRIBUTION:Right: L5 and S1Left: L5 and [id number] STATUS: Impaired Community DistancesPREVIOUS CONSERVATIVE TREATMENTS:OTC NSAIDS [...] Cla* Rash- Egg White Swelling Says about 1963? and only one arm affected. No rash, [...] Wt 76.2 kg (168 lb) BMI 27.96 kg/y5UITVIIA APPEARANCE: Well nourished, well developed, and no [...] with sciatica, sciaticalaterality unspecified (primary encounter diagnosis)Angela Dejesus does not require surgery at this time. Continue withconservative mgt per LMD.I reviewed the information obtained and documented by the resident. Iexamined the patient and evaluated all available films and pertinentdocuments. We discussed the case and I agree with the plans as outlined inthis note.SIGNATURE: Kalia Gill MD PATIENT NAME: Angela DejesusDATE: January 27, 2018 : 1:07 PM PAGER:PTF Normal [facility] XR LUMBAR 4V AP/LAT/ FLEX/EX Ton [...] is unremarkable.IMPRESSION:POSTOPERATI VE AND DEGENERATIVE CHANGES DESCRIBEDTranscriptionist: ALLYSSA Transcribe Date/Time: Jan 27 2018 2:50PDictated by : CARMENCITA DALTON MDThis examination was interpreted and the report reviewed and electronically signed by: CARMENCITA DALTON MD on Jan 27 2018 2:52PM [id number] Normal [facility] FL-MR HIP LT WO CONT IMPORTo n 11-01-2017 FL-MR HIP LT WO CONT IMPORT Images were obtained outside of [facility] [id number] Normal [facility] MR-MR LUMBAR SPINE W WO CONT IMPORTon 09-13-2017 MR-MR LUMBAR SPINE W WO CONT IMPORT Images were obtained outside of [facility] [id number] Normal [facility] Encounters Encounter Date Encounter Type Care Provider Facility Start: 01-03-2024 Refill Bia Gaxiola Work Phone: [facility] Comment on above: Mixed hyperlipidemia (CMS/HCC) (Primary Dx); Stress incontinence of urine Start: 12-31-2023 End: 12-31-2023 ambulatory RIA SNYDER Not Available Start: 12-30-2023 Chart abstracting Elmer soto PT Work Phone: [facility] Start: 12-28-2023 End: 12-28-2023 ambulatory RIA SNYDER Not Available Start: 12-23-2023 End: 12-23-2023 ambulatory RIA SNYDER Not Available Start: 12-23-2023 End: 12-23-2023 ambulatory Ria Snyder PLASTICS 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 Work Phone: [facility] Comment on above: General weakness (Pr imary Dx); History of falling Start: 12-21-2023 End: 12-21-2023 ambulatory RIA SNYDER Not Available Start: 12-16-2023 End: 12-16-2023 ambulatory RIA SNYDER Not Available Start: 12-13-2023 Refyuval aggarwal MD Work Phone: [facility] Start: 12-08-2023 End: 12-08-2023 ambulatory ELMER PETTIT Not Available Start: 12-07-2023 End: 12-07-2023 ambulatory SANTO GARCIA Not Available Start: 12-06-2023 End: 12-06-2023 ambulatory BIA ALVARADOER Not Available Start: 12-03-2023 End: 12-04-2023 ambulatory JOHN JOHNSON [facility] Start: 11-29-2023 End: 11-29-2023 ambulatory LALIT Guillermo [facility] Start: 11-23-2023 End: 11-24-2023 ambulatory BIA F NASH Not Available Start: 11-11-2023 End: 11-11-2023 ambulatory ELMER DUMONTGS Not Available Start: 11-08-2023 End: 11-08-2023 ambulatory RIA SNYDER Not Available Start: 11-04-2023 End: 11-04-2023 ambulatory ELMERIZABEL PETTIT Not Available Start: 10-22-2023 End: 10-22-2023 ambulatory BIA F NASH Not Available Start: 09-06-2023 End: 09-07-2023 ambulatory Adelfo Hansen MD Facility:[facility] Start: 07-19-2023 End: 07-20-2023 ambulatory Adelfo Hansen MD Facility:[facility] Start: 07-05-2023 End: 07-06-2023 ambulatory Adelfo Hansen MD Facility:[facility] Start: 10-12-2022 End: 10-12-2022 ambulatory [facility] Start: 09-28-2022 End: 09-28-2022 ambulatory [facility] Start: 05-16-2018 End: 05-16-2018 Ambulatory AUDREY HORN [facility] Start: 05-06-2018 End: 05-11-2018 Ambulatory LENNY TANISHA [facility] Start: 05-02-2018 Patient encounter status Antonietta Johnson MD [facility]: Start: 01-27-2018 End: 01-27-2018 Ambulatory KALIA Cristian [facility] Start: 01-27-2018 End: 01-31-2018 Ambulatory KALIA H [facility] Procedures Date Procedure Procedure Detail Performing Clinician Start: 11-29-2023 Follow-up visit Follow-up LALIT RICHARD Start: 04-23-2023 Adult depression scr eening assessment John Johnson MD Work Phone: Start: 05-16-2018 DISCHARGE PATIENT LENNY MILO Start: 05-16-2018 BEDREST LENNY PAIZ Start: 05-16-2018 Continuous pulse oximetry LENNY PEDRAZA Start: 05-16-2018 ENCOURAGE DEEP BREAT KELSEA AND COUGHING LENNY PEDRAZA Start: 05-16-2018 NOTIFY PHYSICIAN (SPECIFY) LENNY PEDRAZA Start: 05-16-2018 NURSING COMMUNICATION Adali PEDRAZA Start: 05-16-2018 INITIATE OXYGEN THER APY PROTOCOL LENNY PEDRAZA Start: 05-16-2018 INSERT PERIPHERAL IV MA JORDAN PEDRAZA Start: 05-16-2018 VITAL SIGNS LENNY PAIZ Start: 05-06-2018 Basic metabolic pane l calcium total LENNY PEDRAZA Start: 05-06-2018 Blood count complete auto&auto difrntl wbc LENNY PEDRAZA Plan of Treatment Date Care Activity Detail Author Start: 12-06-2024 Medicare Annual Well ness (AWV) Medicare Annual Wellness (AWV) [facility] Start: 11-29-2024 Adult BMI Screening Adult BMI Screen ing [facility] Start: 11-29-2024 Tobacco Screening Tobacco Screening [facility] Start: 10-01-2024 Fall Risk Screening Fall Risk Screen ing [facility] Start: 05-21-2024 Influenza vaccination Influenza Vacc ine (#1) [facility] Comment on above: Postponed from 07/23 (Patient Refused) Start: 04-23-2024 Depression Screening Depression Scre ening [facility] Start: 04-11-2024 End: 04-11-2024 Patient encounter procedure 04/11/2024 2:45 PM EDT Office Visit [facility] [address] [place] [address] John Johnson MD [address] [place] [address] [facility] Start: 04-03-2024 End: 04-03-2024 Patient encounter procedure 04/03/2024 11:20 AM EDT Office Visit [facility] [address] [facility] [place] [address] Bia Cao MD [address] [place] [address] [facility] Start: 02-09-2024 End: 02-09-2024 Patient encounter procedure 02/09/2024 11:00 AM EDT Office Visit [facility] [address] [facility] [address] [facility] [place] [address] Ryan Dallas MD [address] [facility] [place] [address] [facility] Start: 01-11-2024 End: 01-11-2024 Patient encounter procedure 01/11/2024 11:00 AM EST Office Visit [facility] [address] [place] [address] Jessenia Dorsey, RESISTANCE BRAZER-TOE CLOSING MACHINE TENDER [address] [place] [address] [facility] Start: 01-06-2024 End: 01-06-2024 ambulatory [facility] Start: 01-04-2024 End: 01-04-2024 ambulatory 01/04/2024 11:30 AM EST Treatment [facility] [address] [place] [phone] Ria Snyder, PLASTICS 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 [address] [place] [address] [facility] Start: 12-31-2023 End: 12-31-2023 ambulatory 12/31/2023 10:00 AM EST Treatment [facility] [address] [place] [phone] Ria Snyder, PLASTICS 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 [address] [place] [address] [facility] Start: 12-30-2023 End: 12-30-2023 ambulatory 12/30/2023 11:30 AM EST Treatment [facility] [address] [place] [phone] Elmer Pettit, PT [address] [place] [address] [facility] Start: 12-28-2023 End: 12-28-2023 ambulatory 12/28/2023 11:30 AM EST Treatment [facility] [address] [place] [phone] Ria Synder, PLASTICS 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 [address] [place] [address] [facility] Start: 07-23-2023 COVID-19 Vaccine () COVID-19 Vaccine ( season) [facility] Start: 07-23-2023 Influenza vaccination Influenza Vacc ine [facility] Start: 08-21-2021 DTaP,Tdap and Td Vaccines (2 - Td or Tdap) DTaP,Tdap and Td Vaccines (2 - Td or Tdap) [facility] Start: 01-17-2010 Administration of varicella zoster vaccine Zoster (Shingles) Vaccine (2 of 3) [facility] Start: 1963 Adult BMI Follow Up Plan Adult BMI Follow Up Plan [facility] Start: 1945 Medicare Annual Well ness Visit Medicare Annual Wellness Visit [facility] Immunizations Immunization Date Immunization Notes Care Provider Fa cility 03-12-2021 COVID-19, mRNA, LNP- S, PF, 100mcg/0.5mL Dose John Johnson MD Work Phone: [facility] 03-11-2021 Moderna SARS-CoV-2 Vaccination Ria Snyder PLASTICS 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 Work Phone: [facility] 02-12-2021 COVID-19, mRNA, LNP- S, PF, 100mcg/0.5mL Dose John Johnson MD Work Phone: [facility] 02-11-2021 Moderna SARS-CoV-2 Vaccination Ria Snyder PLASTICS 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 Work Phone: [facility] 11-12-2020 pneumococcal conjuga te vaccine, 13 valent John Johnson MD Work Phone: [facility] 09-17-2020 influenza, high dose seasonal, preservative-free John Johnson MD Work Phone: [facility] 09-17-2020 Seasonal, quadrivale nt, recombinant, injectable influenza vaccine, preservative free John Johnson MD Work Phone: [facility] 09-17-2020 influenza virus vacc ine, unspecified formulation John Johnson MD Work Phone: [facility] 08-30-2019 Seasonal, quadrivale nt, recombinant, injectable influenza vaccine, preservative free John Johnson MD Work Phone: [facility] 08-29-2018 influenza, injectabl e, quadrivalent, preservative free John Johnson MD Work Phone: [facility] 08-22-2015 influenza, seasonal, injectable, preservative free Ria Snyder PLASTICS 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 Work Phone: [facility] 08-13-2015 pneumococcal polysaccharide vaccine, 23 valent Ria Snyder PLASTICS 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 Work Phone: [facility] 08-21-2011 tetanus and diphther ia toxoids, adsorbed, preservative free, for adult use (5 Lf of tetanus toxoid and 2 Lf of diphtheria toxoid) John Johnson MD Work Phone: [facility] 11-22-2009 zoster vaccine, live Juan Snyder PLASTICS 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 Work Phone: [facility] 11-22-2009 zoster vaccine, unspecified formulation John Johnson MD Work Phone: [facility] Payers Date Payer Category Payer Private Health Insurance 2021 Medicare [id number] 2021 Medicare [id number] 2014 Medicare [id number] 1945 Unknown [id number] 2.16. [id number] -08-1945 Unknown [id number] 2.16. 840.1.556439.3.579.2.175 -194 Unknown [id number] 2.16. 840.1.604656.3.579.2.196 194 Unknown [id number] 2.16. 840.1.834059.3.579.2.196 194 Unknown [id number] 2.16. 840.1.783278.3.579.2.196 194 Unknown [id number] 2.16.84 0.1.583797.3.579.2.1286 -194 Unknown [id number] 2.16.84 0.1.918283.3.579.2.1286 -194 Unknown [id number] 2.16.84 0.1.123929.3.579.2.1259 -194 Unknown [id number] 2.16.84 0.1.806947.3.579.2.1259 -08-1945 Unknown [id number] 2.16.84 0.1.990010.3.579.2.1259 --1945 Unknown [id number] 2.16.84 0.1.617187.3.579.2.1259 -08-1945 Unknown [id number] 2.16.84 0.1.177572.3.579.2.1259 -08-1945 Unknown [id number] 2.16.84 0.1.278192.3.579.2.1259 -08-1945 Unknown [id number] 2.16.84 0.1.160037.3.579.2.1259 -08-1945 Unknown [id number] 2.16.84 0.1.588051.3.579.2.1259 -08-1945 Unknown [id number] 2.16.840 .1.307786.3.579.2.1259 1945 Unknown [id number] 2.16.840 .1.319655.3.579.2.1259 1945 Unknown [id number] 2.16.840 .1.708252.3.579.2.1259 1945 Unknown [id number] 2.16.840 .1.152234.3.579.2.1259 1945 Unknown [id number] 2.16.840 .1.406970.3.579.2.1259 Social History Date Type Detail Facility Start: 06-04-2023 End: 11-29-2023 Tobacco smoking status NHIS Never smoked tobacco [facility] History of tobacco use Passive smoker [facility] Start: 06-04-2023 End: 11-29-2023 Tobacco use and exposure Smokeless tobacco non-user [facility] Start: 11-29-2023 Alcohol intake Current non-drinker of alcohol (finding) [facility] Start: 11-29-2023 End: 12-06-2023 Alcohol intake [facility] Start: 11-29-2023 End: 12-06-2023 Tobacco use panel [facility] Adolescent depressio n screening assessment 0 [facility] Start: 1945 Sex Assigned At Female [facility] Start: 05-22-2021 Gender identity Identifies as female gender (finding) [facility] Start: 05-22-2021 Sexual orientation Heterosexual (finding) [facility] Start: 12-07-2023 Alcohol intake Current drinker of alcohol (finding) [facility] Start: 05-04-2023 Alcohol Comment caffeine: occasional [facility] Start: 1945 Sex Assigned At Not on file [facility] Medical Equipment Procedure Code Equipment Code Equipment Origin al Text Equipment Identifier Dates Patch Dura 1x1in Drmtrx-[place] + Clgn Rgnrt Membr Strl - [id number] Start: 07-03-2021 Goals Date Patient Goal [...] sign and send documented in this encounter [facility] Telephone encounter Note 12-13-2023 Telephone Encounter - Ira Rojas - 12/13/2023 11:57 AM EST Note Date & Type Note Facility 12-13-2023 Telephone encount er Note Okay to sign and send [facility] Evaluation note Note Date & Type Note Facility Evaluation note Diagnosis General weakness- Primary Other malaise and fatigue History of falling documented in this encounter [facility] Evaluation note Note Date & Type Note Facility Evaluation note Diagnosis Mixed hyperlipidemia (CMS/HCC)- Primary Mixed hyperlipidemia Stress incontinence of urine documented in this encounter [facility] Instructions Note Date & Type Note Facility Instructions Not on filedocumented in this en counter [facility] Summary Purpose Family History No Family History Records FoundNo Family History Records FoundNo Family History Records FoundNo Family History Records FoundNo Family History Records FoundNo Family History Records FoundNo Family History Records FoundNo Family History Records FoundNo Family History Records Found Advance Directives Documents on File Type Date Recorded 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 [employer] Architect 07/16/2021 3:45 PM Living Will 07/16/2021 3:40 [...] section and content) DATE CREATED AUTHOR 05/13/2018 [facility] DATE CREATED AUTHOR AUTHOR'S ORGANIZ ATION 05/16/2018 [facility] DATE CREATED AUTHOR AUTHOR'S ORGANIZ ATION 06/21/2019 [facility] DATE CREATED AUTHOR AUTHOR'S ORGANIZ ATION 11/13/2022 [facility] DATE CREATED AUTHOR AUTHOR'S ORGANIZ ATION 12/07/2022 [facility] dical Specialist DATE CREATED AUTHOR AUTHOR'S ORGANIZ ATION 09/11/2023 [facility] DATE CREATED AUTHOR AUTHOR'S ORGANIZ ATION 12/04/2023 [facility] DATE CREATED AUTHOR AUTHOR'S ORGANIZ ATION 12/06/2023 [facility] DATE CREATED AUTHOR AUTHOR'S ORGANIZ ATION 01/01/2024 [facility] dical Specialists EPIC Reason for Visit (unrecogniz ed section and content) Reason Onset Date Comments Med Refill 12/13/2023 Specialty Diagnoses / Procedures Referred By Violette staley Referred To Contact Physical Therapy Diagnoses Muscle weakness (generalized) Procedures TREATMENT Bia Cao MD [address] [place] [address] Elmer Pettit, PT [address] [facility] [place] [address] Referral ID Status Reason Start Date Expiration Date V isits Requested Visits Authorized [id number] Authorized 12/08/2023 06/05/2024 99 99 Reason Comments Med Refill Care Teams (unrecognized sec tion and content) Car Shunter Relationship Specialty Start Date End Date Bia Cao MD [address] [facility] [place] [address] PCP - General Family Medicine 02/05/23 Car Shunter Relationship Specialty Start Date End Date Jacob Viveros PCP - [employer] 11/22/22 Bia Cao MD [address] [facility] [place] [address] PCP - General Family Medicine 04/29/23 Car Shunter Relationship Specialty Start Date End Date [facility]22/22 Bia Cao MD [address] [place], [place] [phone] PCP - General Family Medicine 04/29/23 Car Shunter Relationship Specialty Start Date End Date Jacob Viveros [facility] 11/22/22 Bia Cao MD [address] [place] [address] PCP - General Family Medicine 04/29/23 FOR [...] BE BASED ON THE PRIMARY CLINICAL RECORDS. [facility] [employer] provides no warranty or guarantee of the accuracy or completeness of information in this document.
== END 2024-01-04 14:04 | disposition home or self-care (01) ==
LOC: RAD 14:05
PROVIDERS: PCP Family Medicine; Visit Provider Nurse Practitioner
DX: M54.2 Cervicalgia (principal)
CPT/HCPCS: 72052

== ENCOUNTER 2024-01-10 07:37 | Day surgery (SDC) | payer MEDICARE, SELFPAY ==
--- OUTSIDE RECORDS SUMMARY | 2024-01-10 07:41 | XMS_ITS | CCD ---
Author Name Unknown Address [id number] [place] [address] Organization [facility] Care Team Providers Care [employer] Name Role Phone KALIA GILL Unavailable Unavailable RENA HERNANDEZ Unavailable Unavailabl e KALIA GILL Unavailable Unavailable LENNY PEDRAZA Unavailable Unavailable AUDREY HORN Unavailable Unavailable AUDREY HORN Unavailable Unavailable LENNY PEDRAZA Unavailable Unavailable BIA CAO F Primary Care Unavailable BIA CAO Primary Care Unavailable Jade GARCIA, Adelfo Arredondo Attending Unavailable Jade GARCIA, Adelfo Arredondo Attending Unavailable Jade GARCIA, Adelfo Arredondo Attending Unavailable LALIT LEACH Attending Unavailable NASH BIA F Referring Unavailable BIA CAO F Primary Care Unavailable JOHN JOHNSON Referring Unavailable BIA CAO Primary Care Unavailable Nash GARCIA, Bia Mccormick Primary Care Provider [phone] Jacob Viveros Unavailable Unavailable Bia Cao MD Primary Care Provider BIA CAO F Attending Unavailable NASH, BIA F Attending Unavailable SANTO GARCIA Attending Unavailable ELMER PETTIT Attending Unavailable NASH, BIA F Referring Unavailable NASH, BIA F Attending Unavailable RIA SNYDER Attending Unavailable NASH, BIA F Referring Unavailable SNYDERRIA Attending Unavailable NASH, BIA F Referring Unavailable SNYDERRIA Attending Unavailable NASH, BAI F Referring Unavailable SNYDERRIA Attending Unavailable NASH, BIA F Referring Unavailable SNYDERRIA Attending Unavailable NASH, BIA F Referring Unavailable RIA SNYDER Attending Unavailable NASH, BIA F Referring Unavailable RIA SNYDER Attending Unavailable NASH, BIA F Referring Unavailable ELMER PETTIT Attending Unavailable NASH, BIA F Referring Unavailable RIA SNYDER Attending Unavailable BIA CAO Referring Unavailable ELMER PETTIT Attending Unavailable BIA CAO Referring Unavailable YOANNA DORSEY Attending Unavailable BIA CAO Referring Unavailable BIA CAO Primary Care Unavailable Allergies Allergy Classification Reported Allergen(s) Allergy Type Date of Onset Reaction(s) Facility (6 sources) Adhesive agent; Translations: [ADHESIVE] Propensity to adverse reactions to drug (disorder) [facility]-04-[facility] aspartame; Translations: [ASPARTAME] Drug Allergy 02-13-20 17 Other (See Comments), Unknown [facility] Repository (12 sources) clavulanic acid; Translations: [CLAVULANIC ACID] Drug Allergy 02-13-20 17 Rash [facility] Repository (1 source) egg white (chicken) allergenic extract; Translations: [EGG WHITE] Drug Allergy 08-14-20 [facility] lincomycin; Translations: [LINCOMYCIN] Drug Allergy 08-14-20 11 Anaphylaxis, [facility] Repository (6 sources) Lincosamides (Antibiotic); Translations: [LINCOSAMIDES] Propensity to adverse reactions to drug (disorder) 02-13-20 17 Anaphylaxis [facility] Repository (6 sources) oxaprozin; Translations: [OXAPROZIN] Drug Allergy 11-04-20 16 [facility] Repository (12 sources) Penicillins; Translations: [PENICILLINS] Propensity to adverse reactions to drug (disorder) 11-04-20 16 [facility] Repository (6 sources) INFLUENZA VIRUS VACCINES; Translations: [INFLUENZA VIRUS VACCINES] Propensity to adverse reactions to drug (disorder) 02-13-20 17 Swelling [facility] Repository (12 sources) CLEMIZOLE; Translations: [CLEMIZOLE] Propensity to adverse reactions to drug (disorder) 02-13-20 17 [facility] Repository (12 sources) AMOXICILLIN-POT CLAVULANATE; Translations: [AMOXICILLIN-POT CLAVULANATE] Propensity to adverse reactions to drug (disorder) 08-14-20 11 Rash [facility] Repository (5 sources) chicken allergenic extract; Translations: [POULTRY] Drug Allergy 03-02-20 23 [facility] Repository (5 sources) egg shell membrane; Translations: [EGGSHELL MEMBRANE] Propensity to adverse reactions to food (disorder) 11-04-20 16 [facility] Repository (11 sources) Indomethacin; Translations: [INDOMETHACIN] Drug Allergy 05-02-20 21 Hypotension, Unknown [facility] Repository (11 sources) Sulfamethoxazole / Trimethoprim; Translations: [SULFAMETHOXAZOLE-T RIMETHOPRIM] Drug Allergy 10-22-20 23 Hives [facility] Repository (5 sources) Sulfonamides (Antibiotic); Translations: [SULFA (SULFONAMIDE ANTIBIOTICS)] Propensity to adverse reactions to drug (disorder) 11-11-20 22 Hives [facility] Repository (11 sources) OTHER; Translations: [OTHER] Propensity to adverse reactions (disorder) 02-13-20 17 Other (See Comments), Swelling [facility] Repository (6 sources) Influenza Vaccines Drug Allergy 06-04-20 23 Rash [facility] (6 sources) Lincomycin Drug Allergy 12-01-19 22 Unknown [facility] (6 sources) Sulfonamides (Antibiotic) Drug Intolerance 11-11-20 22 [facility] (6 sources) Eggs Or Egg-Derived Products Drug Allergy 08-14-20 11 Swelling, Unknown [facility] (6 sources) Poultry Meal Propensity to adverse reactions 03-02-20 23 [facility] (6 sources) Wound Dressing Adhesive Drug Allergy 06-04-20 23 Rash [facility] Medications Current Medications Medication Drug Class(es) Dates Sig (Normalized) Sig (Original) acetaminophen 500 mg oral tablet (2 sources) take 2 tablets by mouth every six hours as needed for pain acetaminophen (TYLENOL EXTRA STRENGTH) 500 mg tablet Take 2 tablets (1,000 mg total) by mouth every 6 (six) hours as needed for pain. 0 Active acetaminophen 250 mg / aspirin 250 mg / caffeine 65 mg oral tablet (2 sources) Platelet Aggregation Inhibitor, Nonsteroidal Anti-inflammatory Drug, Central Nervous System Stimulant, Methylxanthine take 1 tablet by mouth every six hours as needed for headache aspirin-acetaminop hen-caffeine (EXCEDRIN MIGRAINE) 250-250-65 mg per tablet Take 1 tablet by mouth every 6 (six) hours as needed for headaches. 0 Active acetaminophen 325 mg / butalbital 50 mg / caffeine 40 mg oral tablet (8 sources) Barbiturate, Central Nervous System Stimulant, Methylxanthine Start: 04-23-2023 take 1 tablet by mouth every four hours as needed for headache butalbital-acetami nophen-caff (ESGIC) 50-325-40 mg per tablet Take 1 tablet by mouth every 4 (four) hours as needed for headaches. No more than 2 tablets daily, and no more than 2 days a week. 20 tablet 2 04/23/2023 Active [id number] 200 actuat albuterol 0.09 mg/actuat metered dose inhaler (8 sources) beta2-Adrenergic Agonist Start: 06-04-2023 take 2 [...] shortness of breath. PRO AIR 0 Active amitriptyline hydrochloride 50 mg oral tablet (9 sources) Tricyclic Antidepressant Start: 11-17-2023 End: 11-16-2024 take 1 tablet by mouth once daily amitriptyline (ELAVIL) 50 mg tablet Indications: Migraine without aura and without status migrainosus, not intractable , Psychophysiological insomnia Take 1 tablet (50 mg total) by mouth nightly. 90 tablet 3 01/07/2024 Active ascorbic acid 500 mg oral tablet (8 sources) Vitamin C take 2 tablets by mouth in the morning ascorbic acid (VITAMIN C) 500 mg tablet Take 2 tablets (1,000 mg total) by mouth in the morning. 0 Active Ascorbic Acid (v itamin C) 1000 MG tablet 1 (one) time each day at the same time. 0 Active aspirin 81 mg delayed release oral tablet (8 sources) Platelet Aggregation Inhibitor, Nonsteroidal Anti-inflammatory Drug take 1 tablet by mouth in the morning aspirin 81 mg Take 1 tablet (81 mg total) by mouth in the morning. 0 Active atorvastatin 40 mg oral tablet (9 sources) HMG-CoA Reductase Inhibitor Start: 2021 End: 2023 take 1 tablet by mouth in the morning atorvastatin (LIPITOR) 40 mg tablet Take 1 tablet (40 mg total) by mouth in the morning. 0 03/15/2022 Active 168 hr buprenorphine 0.0075 mg/hr transdermal system (8 sources) Partial Opioid Agonist Start: 2022 apply 1 dose transdermal route every week buprenorphine (BUTRANS) 7.5 mcg/hour patch weekly Place 1 patch on the skin once a week. 0 07/20/2023 Active calcium carbonate 1500 mg / cholecalciferol 800 unt oral tablet (8 sources) Vitamin D take 1 tablet by mouth once daily calcium carbonate-vitamin D3 600 mg(1,500mg) -800 units tablet Indications: prevention of vitamin D deficiency Take 600 mg by mouth nightly Indications: prevention of vitamin D deficiency. 0 Active carvedilol 25 mg oral tablet (8 sources) alpha-Adrenergic To, beta-Adrenergic To Start: 2022 [...] Active cholecalciferol 0.025 mg ora l tablet (8 sources) Vitamin D cholecalciferol, vitamin D3, (VITAMIN D3) 1,000 units tablet Indications: vitamin D deficiency 1 tablet (1,000 Units total) before breakfast Indications: low vitamin D levels. 0 Active cholecalciferol (Vitamin D-3) 25 MCG (1000 UT) tablet 1,000 Units in the morning. Take before meals. 0 Active escitalopram 20 mg oral tablet (8 sources) Serotonin Reuptake Inhibitor Start: 12-15-2023 End: 12-14-2024 take 1 tablet by mouth at mealtime escitalopram (Lexapro) 20 MG tablet Indications: Anxiety Take 1 tablet (20 mg) by mouth in the evening. Take with meals 100 tablet 3 12/15/2023 12/14/2024 Active famotidine 20 mg oral tablet (8 sources) Histamine-2 Receptor Antagonist Start: 11-29-2023 take 1 tablet by mouth once daily famotidine (PEPCID) 20 mg tablet Take 1 tablet (20 mg total) by mouth nightly. 90 tablet 3 11/29/2023 Active fenofibrate 160 mg oral tablet (8 sources) Peroxisome Proliferator Receptor alpha Agonist Start: 10-26-2023 End: 10-25-2024 take 1 tablet by mouth in the morning fenofibrate (Triglide) 160 MG tablet Indications: Hyperlipidemia, unspecified hyperlipidemia type (CMS/HCC) Take 1 tablet (160 mg) by mouth in the morning. 100 tablet 3 10/26/2023 10/25/2024 Active fexofenadine hydrochloride 180 mg oral tablet (8 sources) Histamine-1 Receptor Antagonist take 1 tablet by mouth once daily at breakfast fexofenadine (RALPH) 180 mg tablet Take 1 tablet (180 mg total) by mouth daily with breakfast. 0 Active hydrALAZINE hydrochloride 100 mg oral tablet (8 sources) Arteriolar Vasodilator Start: 07-26-2023 take 1 [...] mg / lisinopril 20 mg oral tablet (8 sources) Thiazide Diuretic, Angiotensin Converting Enzyme Inhibitor Start: 12-06-2023 take 1 tablet by mouth in the morning lisinopril-hydroCH LOROthiazide 20-12.5 MG tablet Indications: Essential hypertension (CMS/HCC) Take 1 tablet by mouth in the morning. 100 tablet 3 12/06/2023 Active Start: 06-01-2023 take 1 tablet by margo th once in the morning lisinopril-hydroCHLOROthiazide (ZESTORET IC) 20-12.5 mg per tablet Indications: Essential hypertension Take 1 tablet by mouth in the morning. 90 tablet 3 06/01/2023 Active L.acidoph/B.animalis/B.longu m (FLORAJEN DIGESTION ORAL) (2 sources) take 1 tablet by mouth in the morning L.acidoph/B.animalis/B.longum (FLORAJEN DIGESTION ORAL) Take 1 tablet by mouth in the morning. 0 Active lactobacillus acidophilus 16 mg oral capsule (6 sources) Lactobacillus (F lorajen Women) capsule as directed Orally 0 Active levothyroxine sodium 0.15 mg oral tablet (8 sources) l- yrox ine Star t: 01-21 take 1 tablet by mouth before breakfast levothyroxine (SYNTHROID, LEVOTHROID) 150 MCG tablet Indications: hypothyroidism Take 1 tablet (150 mcg total) by mouth before breakfast Indications: a condition with low thyroid hormone levels. 78 tablet 4 02/10/2023 Active Magnesium (8 sources) take 500 mg by mouth in [...] Active meclizine hydrochloride 25 mg oral tablet (6 sources) Antiemetic meclizine (Antiv ert) 25 MG tablet Take 25 mg by mouth. 0 Active multivitamin with minerals (Centrum) 9-200 mg-mcg tablet split tablet (6 sources) multivitamin wit h minerals (Centrum) 9-200 mg-mcg tablet split tablet multivitamin Multiple Vitamins 0 Active omeprazole 40 mg delayed release oral capsule (8 sources) Proton Pump Inhibitor Start: 11-29-19 24 take 1 capsule by mouth in the morning omeprazole (PriLOSEC) 40 mg capsule Indications: Gastroesophageal reflux disease, unspecified whether esophagitis present Take 1 capsule (40 mg total) by mouth in the morning. 180 capsule 3 11/29/2023 Active 24 hr oxybutynin chloride 10 mg extended release oral tablet (9 sources) Cholinergic Muscarinic Antagonist Start: 11-21-20 20 take 1 tablet by mouth once daily oxybutynin XL (Ditropan-XL) 10 MG 24 hr tablet Indications: Stress incontinence of urine take 1 tablet by mouth once daily 90 tablet 3 01/03/2024 Active End: 01-03-2024 take 1 tablet by mouth every twenty-four hours in the morning oxybutynin XL (Ditropan-XL) 10 MG 24 hr tablet Take 10 mg by mouth in the morning. 0 01/03/2024 Discontinued therapeutic multivitamin (THERAGRAN) tablet (2 sources) take 1 tablet by mouth once daily at dinner therapeutic multivitamin (THERAGRAN) tablet Take 1 tablet by mouth daily with dinner. 0 Active tiZANidine 4 mg oral tablet (9 sources) Central alpha-2 Adrenergic Agonist Start: 01-07-20 tiZANidine (ZANAFLEX) 4 mg tablet Indications: Bilateral occipital neuralgia , Cervicalgia , Trapezius muscle spasm , Psychophysiological insomnia Take 0.25-0.5 tablets (1-2 mg total) by mouth 2 (two) times daily at 0800 and 1500 AND 1-2 tablets (4-8 mg total) nightly. 270 tablet 3 01/07/2024 Active Start: 03-03-2023 End: 01-07-2024 take 2 tablets by mouth once daily tiZANidine (ZANAFLEX) 4 mg tablet Take 2 tablets (8 mg total) by mouth nightly. 0 03/03/2023 01/07/2024 Discontinued (Reorder) take 1 tablet by margo th once daily tiZANidine (Zanaflex) 4 MG tablet take 0.5 to 2 tablets by mouth nightly 0 Active ubrogepant 100 mg oral tablet (10 sources) Start: 01-07-2024 End: 01-07-2024 take 1 tablet by mouth once as needed UBRELVY 100 mg tablet Indications: Migraine without aura and without status migrainosus, not intractable Take 100 mg by mouth once as needed (migraine) for up to 1 dose. 16 tablet 12 01/07/2024 Active zafirlukast 20 mg oral tablet (8 sources) Leukotriene Receptor Antagonist Start: 10-18-2021 End: 12-14-2024 take 1 tablet by mouth in the morning zafirlukast (Accolate) 20 MG tablet Indications: Moderate persistent asthma, unspecified whether complicated (CMS/HCC) Take 1 tablet (20 mg) by mouth in the morning and 1 tablet (20 mg) before bedtime. 180 tablet 3 12/15/2023 12/14/2024 Active Completed/Discontinued Medications Medication Drug Class(es) Dates Sig (Normalized) Sig (Original) alendronic acid 70 mg oral tablet (10 sources) Bisphosphonate Start: 12-13-2023 End: 01-07-2024 take 1 tablet by mouth in the morning alendronate (FOSAMAX) 70 mg tablet Take 1 tablet (70 mg total) by mouth every 7 days. In a.m. with water on empty stomach, nothing else by mouth and remain upright for 30min. STOP old dose 90 tablet 3 12/13/2023 01/07/2024 Discontinued Start: 07-21-2023 alendronate (F OSAMAX) 35 mg [...] with plain water Orally weekly 0 Active benzonatate 200 mg oral capsule (2 sources) Non-narcotic Antitussive Start: 11-23-2023 End: 01-07-2024 take 1 capsule by mouth three times daily as needed for cough benzonatate (TESSALON PERLES) 200 mg capsule TAKE 1 CAPSULE BY MOUTH THREE TIMES A DAY NEEDED FOR COUGH FOR UP TO 7 DAYS 0 11/23/2023 01/07/2024 Discontinued ciprofloxacin 500 mg oral tablet (2 sources) Quinolone Antimicrobial Start: 11-23-2023 End: 01-07-2024 take 1 tablet by mouth at bedtime ciprofloxacin HCl (CIPRO) 500 mg tablet TAKE 1 TABLET (500 MG) BY MOUTH IN THE MORNING AND BEFORE BEDTIME FOR 7 DAYS 0 11/23/2023 01/07/2024 Discontinued fluticasone propionate 0.05 mg/actuat metered dose nasal spray (8 sources) Corticosteroid Start: 08-23-2023 End: 08-22-2024 fluticasone propionate (FLONASE) 50 mcg/actuation nasal spray 1-2 sprays in the morning. 0 08/23/2023 01/07/2024 Discontinued Start: 08-23-2023 End: 08-22-2024 take 1-2 spray(s) nasal route in the morning fluticasone (Flonase) 50 MCG/ACT nasal spray Indications: Allergic rhinitis due to pollen, unspecified seasonality Administer 1-2 sprays into each nostril in the morning. Shake gently. Before first use, prime pump. After use, clean tip and replace cap.. 16 g 2 08/23/2023 08/22/2024 Active NIFEdipine 60 mg osmotic 24 hr extended release oral tablet (8 sources) Dihydropyridine Calcium Channel To Start: 04-23-2023 End: 01-07-2024 take 1 tablet by mouth every twenty-four hours NIFEdipine XL (PROCARDIA XL) 60 mg 24 hr tablet Take 1 tablet (60 mg total) by mouth. 0 04/23/2023 01/07/2024 Discontinued Problems Active Problems Problem Classification Problem Date Documented Da te Episodic/Chronic Asthma (6 sources) Asthma; Translations: [Unspecified asthma, uncomplicated] Onset: 6 06-04-2023 Chronic Chronic kidney disease (6 sources) Chronic kidney disease stage 3B ; Translations: [Stage 3b chronic kidney disease (CKD)] Onset: 3 06-04-2023 Chronic Complications of surgical procedures or medical care (6 sources) Drug-induced hypotension; Translations: [Hypotension due to drugs] Onset: 1 05-23-2021 Episodic Conduction disorders (6 sources) First degree atrioventricular block; Translations: [Atrioventricular block, first degree] Onset: 1 06-04-2023 Chronic Diabetes mellitus without complication (2 sources) Prediabetes; Translations: [Prediabetes] Onset: 4 01-07-2024 Episodic Disorders of lipid metabolism (11 sources) Hyperlipidemia; Translations: [Other hyperlipidemia] Onset: 5 10-26-2017 Chronic Esophageal disorders (9 sources) Gastro-esophageal reflux disease without esophagitis; Translations: [Gastroesophageal reflux disease without esophagitis] Onset: 1 09-15-2021 Chronic Essential hypertension (10 sources) Essential hypertension; Translations: [Essential (primary) hypertension] Onset: 3 03-02-2023 Chronic Fracture of upper limb (1 source) Displaced fracture of proximal phalanx of left little finger, subsequent encounter for fracture with routine healing; Translations: [Displaced fracture of proximal phalanx of left little finger, subsequent encounter for fracture with routine healing] Onset: 2 Episodic Genitourinary symptoms and ill-defined conditions (7 sources) Mixed urinary incontinence; Translations: [Mixed incontinence] Onset: 0 06-04-2023 Chronic Headache; including migraine (10 sources) Migraine without aura, not refractory ; Translations: [Migraine without aura, not intractable, without status migrainosus] Onset: 9 Resolved: 3 12-12-2018 Chronic Miscellaneous mental health disorders (10 sources) Psychophysiologic insomnia; Translations: [Psychophysiologic insomnia] Onset: 9 12-12-2018 Chronic Mood disorders (16 sources) Depressive disorder; Translations: [Other specified depressive episodes] Onset: 7 02-12-2017 Chronic Nausea and vomiting (2 sources) Postoperative nausea and vomiting; Translations: [Nausea with vomiting, unspecified] 06-24-2021 Episodic Osteoarthritis (6 sources) Osteoarthritis of right knee joint; Translations: [Unilateral primary osteoarthritis, right knee] Onset: 1 06-04-2023 Chronic Osteoporosis (13 sources) Age-related osteoporosis without current pathological fracture; Translations: [Senile osteoporosis] Onset: 0 Resolved: 3 06-04-2023 Chronic Other and ill-defined heart disease (2 sources) Diastolic dysfunction; Translations: [Other ill-defined heart diseases] Onset: 1 05-23-2021 Chronic Other and ill-defined heart disease (2 sources) Left ventricular hypertrophy; Translations: [Cardiomegaly] Onset: 1 05-23-2021 Chronic Other connective tissue disease (6 sources) Cramp in lower limb; Translations: [Sleep related leg cramps] Onset: 3 06-04-2023 Chronic Other connective tissue disease (1 source) Trigger finger, right ring finger; Translations: [Trigger finger, right ring finger] Onset: 8 Episodic Other connective tissue disease (1 source) Pain in left hand; Translations: [Pain in left hand] Onset: 2 Episodic Other connective tissue disease (3 sources) Muscle spasm of cervical muscle of neck; Translations: [Other muscle spasm] Onset: 9 05-05-2019 Episodic Other ear and sense organ disorders (1 source) Decreased hearing ; Translations: [Unspecified hearing loss, bilateral] 01-07-2024 Chronic Other ear and sense organ disorders (1 source) Unspecified hearing loss, bilateral; Translations: [Unspecified hearing loss, bilateral] Onset: 4 Chronic Other gastrointestinal disorders (8 sources) Chronic idiopathic constipation; Translations: [Chronic idiopathic constipation] Onset: 9 07-10-2019 Chronic Other hereditary and degenerative nervous system conditions (9 sources) Essential tremor; Translations: [Essential tremor] Onset: 9 12-12-2018 Chronic Other hereditary and degenerative nervous system conditions (1 source) Essential tremor; Translations: [Essential tremor] Onset: 9 Chronic Other injuries and conditions due to external causes (9 sources) History of fall; Translations: [History of falling] Onset: 3 12-23-2023 Episodic Other nervous system disorders (1 source) Other chronic pain; Translations: [Other chronic pain] Onset: 8 Chronic Other nervous system disorders (2 sources) Chronic pain syndrome; Translations: [Chronic pain syndrome] Onset: 8 2018 Chronic Other nervous system disorders (2 sources) Carpal tunnel syndrome; Translations: [Carpal tunnel syndrome, unspecified upper limb] Onset: 1 10-28-2021 Chronic Other nervous system disorders (1 source) Polyneuropathy; Translations: [Polyneuropathy, unspecified] 01-07-2024 Chronic Other nervous system disorders (1 source) Polyneuropathy, unspecified; Translations: [Polyneuropathy, unspecified] Onset: 4 Chronic Other nervous system disorders (3 sources) Impairment of balance; Translations: [Other abnormalities of gait and mobility] Onset: 9 06-12-2019 Episodic Other screening for suspected conditions (not mental disorders or infectious disease) (2 sources) Abnormal level of blood mineral; Translations: [Abnormal level of blood mineral] Onset: 4 01-07-2024 Episodic Spondylosis; intervertebral disc disorders; other back problems (20 sources) Prolapsed lumbar intervertebral disc; Translations: [Other intervertebral disc displacement, lumbar region] Onset: 1 Resolved: 3 01-07-2017 Chronic Thyroid disorders (8 sources) Acquired hypothyroidism; Translations: [Hypothyroidism, unspecified] Onset: 9 03-02-2023 Chronic Past or Other Problems Problem Classification Problem Date Documented Da te Episodic/Chronic Acute and unspecified renal failure (2 sources) Acute injury of kidney; Translations: [Acute kidney failure, unspecified] Onset: 03-02-2023 03-02-2023 Episodic Acute cerebrovascular disease (2 sources) Hematoma of subdural space of neuraxis; Translations: [SDH (subdural hematoma)] Onset: 01-04-2018 Resolved: 07-01-2021 07-01-2021 Chronic Adjustment disorders (6 sources) Adjustment disorder with anxious mood; Translations: [Adjustment disorder with anxiety] Onset: 05-04-2023 Resolved: 10-24-2023 10-24-2023 Chronic Calculus of urinary tract (8 sources) Kidney stone; Translations: [Calculus of kidney] Onset: 03-02-2023 03-02-2023 Episodic Malaise and fatigue (5 sources) Asthenia; Translations: [Weakness] Onset: 11-04-2016 11-04-2016 Episodic Mood disorders (8 sources) Mood disorders Onset: 04-23-2023 Resolved: 01-07-2024 04-23-2023 Other circulatory disease (2 sources) Low blood pressure; Translations: [Hypotension, unspecified] Onset: 03-02-2023 03-02-2023 Episodic Other connective tissue disease (8 sources) Bilateral trochanteric bursitis; Translations: [Trochanteric bursitis, right hip] Onset: 11-03-2017 11-03-2017 Episodic Other connective tissue disease (2 sources) Impingement syndrome of right shoulder region; Translations: [Impingement syndrome of right shoulder] Onset: 08-14-2011 06-22-2018 Episodic Other connective tissue disease (2 sources) Nocturnal muscle spasm ; Translations: [Other muscle spasm] Onset: 06-12-2019 06-12-2019 Episodic Other connective tissue disease (6 sources) Recurrent falls ; Translations: [Repeated falls] Onset: 11-01-2017 06-04-2023 Episodic Other connective tissue disease (6 sources) History of lumbar fusion; Translations: [Arthrodesis status] Onset: 12-11-2015 06-04-2023 Episodic Other connective tissue disease (1 source) Other muscle spasm; Translations: [Other muscle spasm] Onset: 05-05-2019 Episodic Other lower respiratory disease (2 sources) Dyspnea; Translations: [Shortness of breath] Onset: 11-06-2019 11-06-2019 Episodic Other nervous system disorders (1 source) Other abnormalities of gait and mobility; Translations: [Other abnormalities of gait and mobility] Onset: 06-12-2019 Episodic Other non-traumatic joint disorders (4 sources) Hip pain; Translations: [Pain in right hip] Onset: 10-13-2017 11-03-2017 Episodic Other upper respiratory disease (2 sources) Chronic hoarseness; Translations: [Dysphonia] Onset: 07-24-2020 07-24-2020 Episodic Screening and history of mental health and substance abuse codes (8 sources) H/O: depression; Translations: [Personal history of [...] Ann MD on 12/06/2023 2:10 AM Normal [facility] Abdomen/Pelvis w + w/o Co ntraston [...] by Felix Dominguez on 12/07/2022 1159 Normal [facility] XR HAND LEFT (MIN 3 VIEWS)on 11-07-2022 [...] MD 11/07/22 Final result Normal [facility] XR HAND LEFT (MIN 3 VIEWS) 3 [...] MD 11/07/22 Final result Normal [facility] XR Chest 2 Views*on 09-10-20 XR Chest [...] by Bartolome Monson on 09/10/2022 1507 Normal [facility] Complete Blood Count with Au to Diffon 12-11-2021 Basophils (Bld) [#/Vol] 0.07 10*3/uL Normal 0.00-0.20 [facility] Comment on above: Performed By: #### CMP, CBCAD #### [facility] [address], [place] [id number] Basophils/100 WBC (Bld) 0.9 % Normal [facility] Comment on above: Performed By: #### CMP, CBCAD #### [facility] [address], [place] [id number] Eosinophils (Bld) [#/Vol] 0.17 10*3/uL Normal 0.02-0.50 [facility] Comment on above: Performed By: #### CMP, CBCAD #### [facility] [address], [place] [id number] Eosinophils/10 0 WBC (Bld) 2.3 % Normal [place] [facility] Comment on above: Performed By: #### CMP, CBCAD #### [facility] [address], [place] [id number] Erythrocyte distribution width (RBC) [Ratio] 16.4 % High 11.0-15.0 [facility] Comment on above: Performed By: #### CMP, CBCAD #### [facility] [address], [place] [id number] Hematocrit (Bld) [Volume fraction] 42.9 % Normal 35.0-47.0 [facility] Comment on above: Performed By: #### CMP, CBCAD #### [facility] [address], [place] [id number] Hemoglobin (Bld) [Mass/Vol] 13.5 g/dL Normal 11.6-15.5 [facility] Comment on above: Performed By: #### CMP, CBCAD #### [facility] [address], [place] [id number] Lymphocytes (Bld) [#/Vol] 2.7 10*3/uL Normal 0.9-3.9 [facility] Comment on above: Performed By: #### CMP, CBCAD #### [facility] [address], [place] [id number] Lymphocytes/10 0 WBC (Bld) 36.1 % Normal [facility] Comment on above: Performed By: #### CMP, CBCAD #### [facility] [address], [place] [id number] MCH (RBC) [Entitic mass] 27.7 pg Normal 27.0-33.0 [facility] Comment on above: Performed By: #### CMP, CBCAD #### [facility] [address], [place] [id number] MCHC (RBC) [Mass/Vol] 31.5 g/dL Low 32.0-36.0 [facility] Comment on above: Performed By: #### CMP, CBCAD #### [facility] [address], [place] [id number] MCV (RBC) [Entitic vol] 88 fL Normal 80-100 [facility] Comment on above: Performed By: #### CMP, CBCAD #### [facility] [address], [place] [id number] Monocytes (Bld) [#/Vol] 0.8 10*3/uL Normal 0.2-0.9 [facility] Comment on above: Performed By: #### CMP, CBCAD #### [facility] [address], [place] [id number] Monocytes/100 WBC (Bld) 10.8 % Normal [facility] Comment on above: Performed By: #### CMP, CBCAD #### [facility] [address], [place] [id number] Neutrophils (Bld) [#/Vol] 3.7 10*3/uL Normal 1.5-7.8 [facility] Comment on above: Performed By: #### CMP, CBCAD #### [facility] [address], [place] [id number] Neutrophils/10 0 WBC (Bld) 49.2 % Normal [facility] Comment on above: Performed By: #### CMP, CBCAD #### [facility] [address], [place] [id number] Platelet mean volume (Bld) [Entitic vol] 11.00 fL Normal 7.50-12.50 [facility] Comment on above: Performed By: #### CMP, CBCAD #### [facility] [address], [place] [id number] Platelets (Bld) [#/Vol] 246 10*3/uL Normal 140-400 [facility] Comment on above: Performed By: #### CMP, CBCAD #### [facility] [address], [place] [id number] RBC (Bld) [#/Vol] 4.88 10*6/uL Normal 3.90-5.20 [facility] Comment on above: Performed By: #### CMP, CBCAD #### [facility] [address], [place] [id number] RDW-SD 53.1 fL High 37.0-50.0 [facility] Comment on above: Performed By: #### CMP, CBCAD #### [facility] [address], [place] [id number] WBC (Bld) [#/Vol] 7.5 10*3/uL Normal 3.8-11.0 [facility] Comment on above: Performed By: #### CMP, CBCAD #### [facility] [address], [place] [id number] Comprehensive Metabolic Pane becky 12-11-2021 Albumin [Mass/Vol] 4.2 g/dL Normal 3.6-5.1 [facility] Comment on above: Performed By: #### CMP, CBCAD #### [facility] [address], [place] [id number] Albumin/Globul in [Mass ratio] 1.7 {ratio} Normal 1.0-2.5 [facility] Comment on above: Performed By: #### CMP, CBCAD #### [facility] [address], [place] [id number] ALP [Catalytic activity/Vol] 71 U/L Normal 35-119 [facility] Comment on above: Performed By: #### CMP, CBCAD #### [facility] [address], [place] [id number] ALT [Catalytic activity/Vol] 12 U/L Normal 6-33 [facility] Comment on above: Result Comment: 10/22/2021 Female referen ce range changed. Performed By: #### C MP, CBCAD #### [facility] [address], [place] [id number] Anion gap [Moles/Vol] 18 mmol/L Normal 12-20 [facility] Comment on above: Result Comment: Effective 11/27/2019 refer ence range changed. Performed By: #### C MP, CBCAD #### [facility] [address], [place] [id number] AST [Catalytic activity/Vol] 15 U/L Normal 9-34 [facility] Comment on above: Performed By: #### CMP, CBCAD #### [facility] [address], [place] [id number] Bilirubin [Mass/Vol] 0.33 mg/dL Normal 0.30-1.20 [facility] Comment on above: Performed By: #### CMP, CBCAD #### [facility] [address], [place] [id number] BUN/CREA 35 Ratio High 6-22 [facility] Comment on above: Performed By: #### CMP, CBCAD #### [facility] [address], [place] [id number] Calcium [Mass/Vol] 9.4 mg/dL Normal 8.6-10.2 [facility] Comment on above: Performed By: #### CMP, CBCAD #### [facility] [address], [place] [id number] Chloride [Moles/Vol] 106 mmol/L Normal 98-107 [facility] Comment on above: Performed By: #### CMP, CBCAD #### [facility] [address], [place] [id number] CO2 [Moles/Vol] 24 mmol/L Normal 20-31 [facility] Comment on above: Performed By: #### CMP, CBCAD #### [facility] [address], [place] [id number] Creatinine [Mass/Vol] 0.9 mg/dL Normal 0.6-1.4 [facility] Comment on above: Performed By: #### CMP, CBCAD #### [facility] [address], [place] [id number] eGFRAA 70 mL/min/1.73m2 Normal >60 [facility] Comment on above: Performed By: #### CMP, CBCAD #### [facility] [address], [place] [id number] eGFRNAA 58 mL/min/1.73m2 Low >60 [facility] Comment on above: Performed By: #### CMP, CBCAD #### [facility] [address], [place] [id number] Globulin (S) [Mass/Vol] 2.5 g/dL Normal 1.9-3.7 [facility] Comment on above: Performed By: #### CMP, CBCAD #### [facility] [address], [place] [id number] Glucose [Mass/Vol] 84 mg/dL Normal 65-99 [facility] Comment on above: Result Comment: For FASTING Glucose --- ADA reference ranges: Normal 65-99 mg/dl Prediabetes 100-125 Diabetes >/= 126 Performed By: #### C MP, CBCAD #### [facility] [address], [place] [id number] Potassium [Moles/Vol] 4.3 mmol/L Normal 3.5-5.5 [facility] Comment on above: Performed By: #### CMP, CBCAD #### [facility] [address], [place] [id number] Protein [Mass/Vol] 6.7 g/dL Normal 6.1-8.1 [facility] Comment on above: Performed By: #### CMP, CBCAD #### [facility] [address], [place] [id number] Sodium [Moles/Vol] 143 mmol/L Normal 135-146 [facility] Comment on above: Performed By: #### CMP, CBCAD #### [facility] [address], [place] [id number] Urea nitrogen [Mass/Vol] 33 mg/dL High 7-25 [facility] Comment on above: Performed By: #### CMP, CBCAD #### [facility] [address], [place] [id number] Calciumon 06-20-2019 Calcium [Mass/Vol] 10.0 mg/dL Normal 8.4-10.2 [facility] Comment on above: Performed By: #### 1030, 1035, 4500, 451 0, 4520, 4581 #### [facility] Unless Otherwise Noted [address] [place] [address] / COLA #4724/ABISAI # [id number] Creatinineon 06-20-2019 Creatinine [Mass/Vol] 0.9 mg/dL Normal 0.5-1.0 [facility] Comment on above: Performed By: #### 1030, 1035, 4500, 451 0, 4520, 4581 #### [facility] Unless Otherwise Noted [address] [place] [address] / [facility] #4724/CLIA # [id number] Creatinine [Mass/Vol] 74.8 Kg Normal [facility] Comment on above: Performed By: #### 1030, 1035, 4500, 451 0, 4520, 4581 #### [facility] Unless Otherwise Noted [address] [address] / COL[facility] #4724/CLIA # [id number] Creatinine [Mass/Vol] 64.8 ml/m1.73 Normal [facility] Comment on above: Performed By: #### 1030, 1035, 4500, 451 0, 4520, 4581 #### [facility] Unless Otherwise Noted [address] [address] / [facility] #4724/CLIA # [id number] Creatinine [Mass/Vol] 65.1 ml/m1.73 Normal [facility] Comment on above: Performed By: #### 1030, 1035, 4500, 451 0, 4520, 4581 #### [facility] Unless Otherwise Noted [address] [address] / COLA #4724/CLIA # [id number] Creatinine [Mass/Vol] 78.7 ml/m1.73 Normal [facility] Comment on above: Performed By: #### 1030, 1035, 4500, 451 0, 4520, 4581 #### [facility] Unless Otherwise Noted [address] [address] / COLA #4724/CLIA # [id number] FT3on 06-20-2019 FT3 2.80 pg/mL Normal 2.45-5.93 [facility] Comment on above: Performed By: #### 1030, 1035, 4500, 451 0, 4520, 4581 #### [facility] Unless Otherwise Noted [address] [facility] [address] [place] [address] / COLA #4724/CLIA # [id number] FT4on 06-20-2019 Free T4 [Mass/Vol] 1.93 ng/dL Normal 0.78-2.44 [facility] Comment on above: Performed By: #### 1030, 1035, 4500, 451 0, 4520, 4581 #### [facility] Unless Otherwise Noted [address] [address] / COLA #4724/CLIA # [id number] TSHon 06-20-2019 TSH Qn 0.57 uIU/ml Normal 0.47-4.68 [facility] Comment on above: Performed By: #### 1030, 1035, 4500, 451 0, 4520, 4581 #### [facility] Unless Otherwise Noted [address] [facility] [address] [place] [address] / COLA #4724/CLIA # [id number] VITAMIN D 25on 06-20-2019 VITAMIN D 25 51.5 ng/ml Normal 30.0-100.0 [facility] Comment on above: Result Comment: Deficient <20 Insufficient 20-<30 Sufficient 30-100 Potiential Toxicity >100 Performed By: #### 1 030, 1035, 4500, 4510, 4520, 4581 #### [facility] Unless Otherwise Noted [address] [facility] [address] [place] [address] / COLA #4724/CLIA # [id number] Basic Metabolic Profon 05-06 (cont.) Normal [facility] Comment on above: Result Comment: Average GFR for 70 or mo re years old: 75 mL/min/1.73sq mChronic Kidney Disease: <60 mL/min/1.73sq mKidney failure: <15 mL/min/1.73sq meGFR calculated using average adult body mass. Additional eGFR calculator available at:[email or web address]_[email or web address].htmPerformed at [facility] [address] [place] [address] Performed By: #### C DP, BMP ####[facility] [place] [address] Anion gap 14 mmol/L Normal 9-17 [facility] Comment on above: Performed By: #### CDP, BMP ####[facility] [place] [address] Calcium 9.6 mg/dL Normal 8.6-10.4 [facility] Comment on above: Performed By: #### CDP, BMP ####[facility] [place] [address] Chloride 106 mmol/L Normal 98-107 [facility] Comment on above: Performed By: #### CDP, BMP ####[facility] [place] [address] CO2 26 mmol/L Normal 20-31 [facility] Comment on above: Performed By: #### CDP, BMP ####[facility] [place] [address] Creatinine 0.91 mg/dL High 0.50-0.90 [facility] Comment on above: Performed By: #### CDP, BMP ####[address] [address] eGFR (non-black) mL/min/{1.73_m2} Normal >60 [facility] Comment on above: Performed By: #### CDP, BMP ####[address] [address] Glucose mass conc 99 mg/dL Normal 70-99 [facility] Comment on above: Performed By: #### CDP, BMP ####[address] [address] Potassium molar conc 4.2 mmol/L Normal 3.7-5.3 [facility] Comment on above: Performed By: #### CDP, BMP ####[address] [address] Sodium 146 mmol/L High 135-144 [facility] Comment on above: Performed By: #### CDP, BMP ####[address] [address] Urea nitrogen 21 mg/dL Normal 8-23 [facility] Comment on above: Performed By: #### CDP, BMP ####[address] [address] BUN/CRE Ratio NOT REPORTED Normal 9-20 [facility] Comment on above: Performed By: #### CDP, BMP ####[address] [address] Staging: NOT REPORTED Normal [facility] Comment on above: Performed By: #### CDP, BMP ####[address] [address] CBC with Diffon 05-06-2018 Abs. Basophil 0.10 k/uL Normal 0.0-0.2 [facility] Comment on above: Result Comment: Performed at [facility] [address] [place] [address] Performed By: #### C DP, BMP ####[address] [address] Abs.Neutrophil (Seg) 4.00 k/uL Normal 1.3-9.1 [facility] Comment on above: Performed By: #### CDP, BMP ####[address] [address] Basophils/100 WBC Auto (Bld) 1 % Normal 0-2 [facility] Comment on above: Performed By: #### CDP, BMP ####[address] [address] Eosinophils 0.20 10*3/uL Normal 0.0-0.4 [facility] Comment on above: Performed By: #### CDP, BMP ####[address] [address] Eosinophils/10 0 leukocytes 2 % Normal 0-4 [facility] Comment on above: Performed By: #### CDP, BMP ####[address] [address] Erythrocyte distribution width Auto Ratio (RBC) 13.9 % Normal 11.5-14.9 [facility] Comment on above: Performed By: #### CDP, BMP ####[address] [address] Erythrocytes (RBC) 4.68 10*6/uL Normal 4.0-5.2 [facility] Comment on above: Performed By: #### CDP, BMP ####[address] [address] Hematocrit (HCT) 41.8 % Normal 36-46 [facility] Comment on above: Performed By: #### CDP, BMP ####[address] [address] Hemoglobin mass conc (Bld) 13.7 g/dL Normal 12.0-16.0 [facility] Comment on above: Performed By: #### CDP, BMP ####[facility] [facility] [address] Lymphocytes 3.20 10*3/uL Normal 1.0-4.8 [facility] Comment on above: Performed By: #### CDP, BMP ####[facility] [facility] [address] Lymphocytes/10 0 leukocytes 39 % Normal 24-44 [facility] Comment on above: Performed By: #### CDP, BMP ####[facility] [facility] [address] MCH 29.3 pg Normal 26-34 [facility] Comment on above: Performed By: #### CDP, BMP ####[facility] [place] [address].[place] [address] MCHC mass conc (RBC) 32.8 g/dL Normal 31-37 [facility] Comment on above: Performed By: #### CDP, BMP ####[facility] [place] [address].[place] [address] MCV 89.3 fL Normal 80-100 [facility] Comment on above: Performed By: #### CDP, BMP ####[facility] [facility] [address] Monocytes 0.90 10*3/uL Normal 0.1-1.3 [facility] Comment on above: Performed By: #### CDP, BMP ####[facility] [place] [address] Monocytes/100 leukocytes 11 % High 1-7 [facility] Comment on above: Performed By: #### CDP, BMP ####[facility] [place] [address].[place] [address] Neutrophil (Seg) 47 % Normal 36-66 [facility] Comment on above: Performed By: #### CDP, BMP ####[address] [place] [address] Platelet mean volume (PMV) 10.3 fL Normal 6.0-12.0 [facility] Comment on above: Performed By: #### CDP, BMP ####[facility] [place] [address] Platelets 232 10*3/uL Normal 150-450 [facility] Comment on above: Performed By: #### CDP, BMP ####[address] [address] WBC (Leukocytes) 8.4 10*3/uL Normal 3.5-11.0 [facility] Comment on above: Performed By: #### CDP, BMP ####[facility] [place] [address] Auto Diff Performed NOT REPORTED Normal [facility] Comment on above: Performed By: #### CDP, BMP ####[facility] [place] [address] Erythrocyte morphology NOT REPORTED Normal [facility] Comment on above: Performed By: #### CDP, BMP ####[address] [address] Erythrocytes (RBC) NOT REPORTED Normal [facility] Comment on above: Performed By: #### CDP, BMP ####[address] [address] Granulocytes/1 00 WBC (Bld) NOT REPORTED Normal 0.00-0.30 [facility] Comment on above: Performed By: #### CDP, BMP ####[facility] [facility] [address] Immature granulocytes #/vol (Bld) NOT REPORTED Normal 0 [facility] Comment on above: Performed By: #### CDP, BMP ####[facility] [facility] [address] Platelets NOT REPORTED Normal [facility] Comment on above: Performed By: #### CDP, BMP ####[facility] [facility] [address] WBC Morphology NOT REPORTED Normal [facility] Comment on above: Performed By: #### CDP, BMP ####[facility] [facility] [address] CNCOon 02-01-2018 CNCO Letter Carmenza vail, [facility] [address] [place] [address] / [facility] [place] [address] Lkiiv 2017Rena Hernandez, QSS[address] [place], [place] [address]NAME: [facility] NO.: [id number] Ms. Hernandez:I recently evaluated your patient, Angela Ruth. As you recall, is a 72-year-old woman who complains of low back pain and, to alesser degree, bilateral leg pain. She has undergone three lumbar surgeriesin the past including an L3-L5 decompression with fusion and fixation [id number]. Conservative measures to date have not given [...] office. Thank you for this consultation.Sincerely,Kalia Gill M.D.IHK:[facility] Normal [facility] CNOVon 01-27-2018 CNOV Office Visit (SPNSMN) ANGELA RUTH ([id number]) 1945 FDate Time Provider Department01/27/18 12:40 PM KALIA GILL NSMN During your visit today, we recorded the following information about you: Pulse Respiration Blood pressure Weight 85/minute 18/minute 141/65 76.2 kg Height 1.651 Claudio Gill MD 01/27/2018 4:15 PM AddendumSPINE SURGERY NEW PATIENTPCP: No PCPREFERRING PROVIDER: Dr. Mayte Herrera Faraz is a 72 year old female presenting [...] 3 previous lumbar spine surgeries (L4-5 hemidiscetomy, ([id number])) L3-5 decompression fusion and fixation ([place]: 2009) and lumbardecompression (Alexy) 2016.She has also tried physical therapy, gabapentin, injections, [...] legDERMATOMAL DISTRIBUTION:Right: L5 and S1Left: L5 and K2ICALCAAEPK STATUS: Impaired Community DistancesPREVIOUS CONSERVATIVE TREATMENTS:OTC NSAIDS [...] Take 160 mg by mouth once daily.fexofenadine (RALPH) 180 mg tablet Take 180 mg by [...] Wt 76.2 kg (168 lb) BMI 27.96 kg/n1AFWPPYK APPEARANCE: Well nourished, well developed, and no [...] : 1:07 PM PAGER:PTFReferring Provider: RENA HERNANDEZ [[id number]]Allergies As of Date: 01/27/2018 Noted Allergy ReactionLINCOSAMIDES [...] [M54.40, G89.29]Order(s):XR LUMBAR MOTION 4V AP/LAT/ FLEX/EXT [[id number]] Order #: [id number] FUTUREPrescriptions as of 01/27/2018 Sig: ACETAMINOPHEN 500 [...] 20 MG CAPSULE,SHARI* 20 mg once daily. [id number]* 1 capsule four times daily as* CYCLOBENZAPRINE [...] Jan 27, 2018 11:58 AM Received from: [facility] [place] Received Sig: Take 500-1,000 mg by mouthevery 6 hours as needed. PROAIR HFA 90 MCG/ACTUATION AEROSOL INHALER >> Valentine [place], [place] 01/27/2018 11:58 AM >> VALENTINE MADRID [facility] Jan 27, 2018 11:58 AM Received from: External Pharmacy AMITRIPTYLINE 100 MG TABLET >> Valentine [place] 01/27/2018 11:58 AM >> VALENTINE MADRID [facility] Jan 27, 2018 11:58 AM Received from: [facility] [place] Received Sig: Take 50 mg by mouth nightlyIndications: Treatment to Prevent Migraine Headaches ATORVASTATIN 40 MG TABLET >> Valentine [place] 01/27/2018 11:58 AM >> VALENTINE MADRID [facility] Jan 27, 2018 11:58 AM Received from: [facility] Received Sig: Take 1 tablet (40 mgtotal) by mouth daily. CARVEDILOL 25 MG TABLET >> Valentine [place] 01/27/2018 11:58 AM >> VALENTINE MADRID [facility] Jan 27, 2018 11:58 AM Received from: External Pharmacy Received Sig: take 1 tablet by mouth twice aday CHOLECALCIFEROL (VITAMIN D3) 1,000 UNIT TABLET >> Valentine [place] 01/27/2018 11:58 AM >> VALENTINE MADRID [place] Jan 27, 2018 11:58 AM Received from: [facility] Received Si,000 Units beforebreakfast Indications: Vitamin D Deficiency. DICLOFENAC SODIUM 75 MG TABLET,DELAYED RELEASE >> Valentine [place] 01/27/2018 11:58 AM >> VALENTINE MADRID [place] Jan 27, 2018 11:58 AM Received from: [facility] Received Sig: Take 75 mg by mouth 2(two) times a day as needed. COMMUTATOR REPAIRER advises up to two tablets two days a week formigraines ESCITALOPRAM 20 MG TABLET >> Valentine [place], [place] 01/27/2018 11:58 AM >> VALENTINE MADRID Sabra Jan 27, 2018 11:58 AM Received from: [place], [place] Received Sig: Take 20 mg by mouth daily. Indications: Depression LOSARTAN 100 MG-HYDROCHLOROTHIAZIDE 25 MG TABLET >> Valentine [place], [place] 01/27/2018 11:58 AM >> VALENTINE MADRID Sabra Jan 27, 2018 11:58 AM Received from: External Pharmacy Received Sig: take 1 tablet by mouth daily FENOFIBRATE 160 MG TABLET >> Valentine [place], [place] 01/27/2018 11:58 AM >> VALENTINE MADRID [facility] Jan 27, 2018 11:58 AM Received from: [place] Received Sig: Take 160 mg by mouth daily. Indications: High Amount of Fats in the Blood FEXOFENADINE 180 MG TABLET >> Valentine [place], [place] 01/27/2018 11:58 AM >> VALENTINE MADRID [facility] Jan 27, 2018 11:58 AM [facility] Received Sig: Take 180 mg by mouthbefore breakfast Indications: Allergic Rhinitis. LEVOTHYROXINE 150 MCG TABLET >> Valentine Madrid [place], [place] 01/27/2018 11:58 AM >> VALENTINE MADRID Sabra Jan 27, 2018 11:58 AM Received from: External Pharmacy MECLIZINE 25 MG TABLET >> Valentine [place] 01/27/2018 11:58 AM >> VALENTINE MADRID Sabra Jan 27, 2018 11:58 AM Received from: [place] Received Sig: Take 25 mg by mouth 3 timesdaily as needed OMEPRAZOLE 20 MG CAPSULE,DELAYED RELEASE >> Valentine [place], [place] 01/27/2018 11:58 AM >> VALENTINE MADRID Sabra Jan 27, 2018 11:58 AM [facility] Si mg before breakfastIndications: Gastroesophageal Reflux. [id number] ALPHENAZONE 325 MG-65 MG-100 MG ORAL CAP >> Valentine Madrid [place], [place] 01/27/2018 11:58 AM >> VALENTINE MADRID Sabra Jan 27, 2018 11:58 AM Received from: [facility] Received Si (four) times a day asneeded for migraine. CYCLOBENZAPRINE 5 MG TABLET >> Valentine Madrid [place], [place] 01/27/2018 11:58 AM >> VALENTINE MADRID Jan 27, 2018 11:58 AM Received from: [facility] Received Sig: Take 10 mg by mouth 3(three) times a day as needed for muscle spasms. EZETIMIBE 10 MG-SIMVASTATIN 40 MG TABLET >> Valentine Madrid [place], [place] 01/27/2018 11:58 AM >> VALENTINE MADRID Jan 27, 2018 11:58 AM Received from: [place] Received Sig: Take 1 tablet by mouthnightly. ESOMEPRAZOLE MAGNESIUM 40 MG CAPSULE,DELAYED RELEASE >> Valentine Madrid [place], [place] 01/27/2018 11:58 AM >> VALENTINE MADRID Jan 27, 2018 11:58 AM Received from: [place] Received Sig: Take 40 mg by mouth everymorning (before breakfast). Indications: Gastroesophageal Reflux Disease METOCLOPRAMIDE 10 MG TABLET >> Valentine Madrid [place], [place] 01/27/2018 12:02 PM >> VALENTINE MADRID Jan 27, 2018 12:02 PM Received from: [place] Received Sig: Take 10 mg by mouthcontinuous MAGNESIUM GLUCONATE 27 MG (500 MG) TABLET >> Valentine [place], [place] 01/27/2018 12:02 PM >> VALENTINE MADRID Jan 27, 2018 12:02 PM Received from: [place] Received Sig: Take 500 mg by mouth 2times daily TOPIRAMATE 100 MG TABLET >> Valentine [place], [place] 01/27/2018 12:05 PM >> VALENTINE MADRID Jan 27, 2018 12:05 PM Received from: External PharmacyProblem List As Of Date 01/27/2018 Noted Resolved 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 status: : NoBreastfeeding status: NO.PATIENT RELEVANT IMPLANT DATA REVIEWED: Not ApplicableRADIOLOGY DEPARTMENT: General X-ray: Exam(s) Completed: Spine X-Ray(s):Lumbar AP / LAT / L5-S1 / FLEX-EXTPERIPHERAL IV DATA: Not applicableSIGNED BY: Angela [facility] 2:25 PM [facility] PROGRESS HNO ID: [id number] thor: Kalia Mata: (none)Author Type: PhysicianType: Progress NotesFiled: 01/27/2018 4:15 PMNote Text:SPINE SURGERY NEW PATIENTPCP: No PCPREFERRING PROVIDER: Dr. Hu Sharon Faraz is a 72 year old female presenting [...] legDERMATOMAL DISTRIBUTION:Right: L5 and S1Left: L5 and [id number] STATUS: Impaired Community DistancesPREVIOUS CONSERVATIVE TREATMENTS:OTC NSAIDS [...] Take 160 mg by mouth once daily.fexofenadine (RALPH) 180 mg tablet Take 180 mg by [...] Wt 76.2 kg (168 lb) BMI 27.96 kg/g2YIMYSLD APPEARANCE: Well nourished, well developed, and no [...] 27, 2018 : 1:07 PM PAGER:PTF [facility] XR LUMBAR 4V AP/LAT/ FLEX/EX Ton 01-27-2018 [...] DALTON MD on Jan 27 2018 2:52PM [id number] [facility] MD-MR HIP LT WO CONT IMPORTo n 11-01-2017 MD-MR HIP LT WO CONT IMPORT Images were obtained outside of [facility] [id number] [facility] MR-MR LUMBAR SPINE W WO CONT IMPORTon 09-13-2017 MR-MR LUMBAR SPINE W WO CONT IMPORT Images were obtained outside of [facility] [id number] [facility] Vital Signs Date Time Vital Sign Value Performing Clinician Christopheri roque 01-07-2024 10:29-0500 Body height 160 cm Yoanna MAS Work Phone: [facility] 01-07-2024 10:29-0500 Body mass index (BMI) [Ratio] 27.63 kg/m2 Yoanna MAS Work Phone: [facility] 01-07-2024 10:29-0500 Body weight 70.76 kg Yoanna MAS Work Phone: [facility] 01-07-2024 10:29-0500 Diastolic blood pressure 78 mm[Hg] Yoanna MAS Work Phone: [facility] 01-07-2024 10:29-0500 Heart rate 80 /min Yoanna MAS Work Phone: [facility] 01-07-2024 10:29-0500 Systolic blood pressure 124 mm[Hg] Yoanna MAS Work Phone: [facility] Encounters Encounter Date Encounter Type Care Provider Facility Start: 01-07-2024 End: 01-07-2024 ambulatory [facility] Start: 01-07-2024 End: 01-07-2024 Office outpatient visit 25 minutes Yoanna MAS Work Phone: [facility] Comment on above: Migraine without aur a and without status migrainosus, not intractable (Primary Dx); Bilateral occipital neuralgia; Essential tremor; Cervicalgia; Trapezius muscle spasm; Balance problem; Psychophysiological insomnia; Polyneuropathy; Prediabetes; Essential (primary) hypertension; Abnormal level of blood mineral; Decreased hearing of both ears Start: 01-06-2024 End: 01-06-2024 ambulatory RIA SNYDER Not Available Start: 01-06-2024 End: 01-06-2024 ambulatory Ria Snyder [employer] Work Phone: [facility] Comment on above: General weakness (Pr imary Dx); History of falling Start: 01-04-2024 Bamboo flowsheet Ria Wrig ht [employer] Work Phone: [facility] Start: 01-04-2024 Bamboo flowsheet Ria Wrig ht [employer] Work Phone: [facility] Start: 01-04-2024 End: 01-04-2024 ambulatory RIA SNYDER Not Available Start: 01-04-2024 End: 01-04-2024 ambulatory Ria Snyder [employer] Work Phone: [facility] Comment on above: General weakness (Pr imary Dx); History of falling Start: 01-03-2024 Refill Bia Mccormick Nash Bro D Work Phone: [facility] Comment on above: Mixed hyperlipidemia (CMS/HCC) (Primary Dx); Stress incontinence of urine Start: 12-31-2023 End: 12-31-2023 ambulatory RIA SNYDER Not Available Start: 12-30-2023 Chart abstracting Elmer soto PT Work Phone: [facility] Start: 12-28-2023 End: 12-28-2023 ambulatory RIA SNYDER Not Available Start: 12-23-2023 End: 12-23-2023 ambulatory RIA SNYDER Not Available Start: 12-23-2023 End: 12-23-2023 ambulatory Ria Snyder [employer] Work Phone: [facility] Comment on above: General weakness (Pr imary Dx); History of falling Start: 12-21-2023 End: 12-21-2023 ambulatory RIA SNYDER Not Available Start: 12-16-2023 End: 12-16-2023 ambulatory RIA SNYDER Not Available Start: 12-13-2023 Refill Jhon aggarwal MD Work Phone: [facility] Start: 12-08-2023 End: 12-08-2023 ambulatory ELMER PETTIT Not Available Start: 12-07-2023 End: 12-07-2023 ambulatory SANTO GARCIA Not Available Start: 12-06-2023 End: 12-06-2023 ambulatory BIA CAO Not Available Start: 12-03-2023 End: 12-04-2023 ambulatory JOHN JOHNSON [facility] Start: 11-29-2023 End: 11-29-2023 ambulatory LALIT Guillermo [facility] Start: 11-23-2023 End: 11-24-2023 ambulatory BIA CAO Not Available Start: 11-11-2023 End: 11-11-2023 ambulatory ELMER PETTIT Not Available Start: 11-08-2023 End: 11-08-2023 ambulatory RIA SNYDER Not Available Start: 11-04-2023 End: 11-04-2023 ambulatory ELMER PETTIT Not Available Start: 10-22-2023 End: 10-22-2023 ambulatory BIA CAO Not Available Start: 09-06-2023 End: 09-07-2023 ambulatory Adelfo Hansen MD Facility: [facility] Start: 07-19-2023 End: 07-20-2023 ambulatory Adelfo Hansen MD Facility: [facility] Start: 07-05-2023 End: 07-06-2023 ambulatory Adelfo Hansen MD Facility: [facility] Start: 10-12-2022 End: 10-12-2022 ambulatory BIA Anny CAO [facility] Start: 09-28-2022 End: 09-28-2022 ambulatory [facility] Anny [facility] Start: 05-16-2018 End: 05-16-2018 Ambulatory AUDREY HORN [facility] Start: 05-06-2018 End: 05-11-2018 Ambulatory LENNY PEDRAZA [facility] Start: 05-02-2018 Patient encounter status Antonietta Johnson MD Work Phone: [facility] Work Phone: Start: 01-27-2018 End: 01-27-2018 Ambulatory KALIA GILL [facility] Start: 01-27-2018 End: 01-31-2018 Ambulatory KALIA GILL [facility] Procedures Date Procedure Procedure Detail Performing Clinician Start: 01-07-2024 Adult depression scr eening assessment Yoanna Willian LUMBER CHECKER-FIRE SPRINKLER FITTER Work Phone: Start: 11-29-2023 Follow-up visit Follow-up LALIT LEACH Start: 04-23-2023 Adult depression scr eening assessment John Johnson MD Work Phone: Start: 05-16-2018 DISCHARGE PATIENT LENNY PEDRAZA Start: 05-16-2018 BEDREST LENNY BRIGGSDAVID PAIZ Start: 05-16-2018 Continuous pulse oximetry LENNY PEDRAZA Start: 05-16-2018 ENCOURAGE DEEP BREAT KELSEA AND COUGHING LENNY PEDRAZA Start: 05-16-2018 NOTIFY PHYSICIAN (SPECIFY) LENNY PEDRAZA Start: 05-16-2018 NURSING COMMUNICATION M FEDERICO MILO Start: 05-16-2018 INITIATE OXYGEN THER APY PROTOCOL LENNY PEDRAZA Start: 05-16-2018 INSERT PERIPHERAL IV MA JORDAN PEDRAZA Start: 05-16-2018 VITAL SIGNS LENNY BRIGGSAMANDAAdolfo PAIZ Start: 05-06-2018 Basic metabolic pane l calcium total LENNY PEDRAZA Start: 05-06-2018 Blood count complete auto&auto difrntl wbc LENNY PEDRAZA Plan of Treatment Date Care Activity Detail Author Start: 01-07-2025 Adult BMI Screening Adult BMI Screening [facility] Start: 01-07-2025 Depression Screening Depression Screening [facility] Start: 01-07-2025 Tobacco Screening Tobacco Screening [facility] Start: 12-06-2024 Medicare Annual Wellness (AWV) Medicare Annual Wellness (AWV) [facility] Start: 11-29-2024 Adult BMI Screening Adult BMI Screening [facility] Start: 11-29-2024 Tobacco Screening Tobacco Screening [facility] Start: 10-01-2024 Fall Risk Screening Fall Risk Screening [facility] Start: 07-10-2024 End: 07-10-2024 Patient encounter procedure 07/10/2024 11:00 AM EDT Office Visit [facility] [address] [place] [address] Yoanna Dorsey, MASOOD-FIRE SPRINKLER FITTER [address] [place] [address] [facility] Start: 05-21-2024 Influenza vaccination Influenza Vaccine (#1) [facility] Comment on above: Postponed from 07/23/2023 (Patient Refus ed) Start: 04-23-2024 Depression Screening Depression Screening [facility] Start: 04-11-2024 End: 04-11-2024 Patient encounter procedure 04/11/2024 2:45 PM EDT Off ice Visit [facility] [address] [place] [address] John Johnson MD [address] [place] [address] [facility] Start: 04-03-2024 End: 04-03-2024 Patient encounter procedure 04/03/2024 11:20 AM EDT Office Visit [facility] [address] [place] [phone] Bia Cao MD [address] [place], [place] [phone] [facility] Start: 02-09-2024 End: 02-09-2024 Patient encounter procedure 02/09/2024 11:00 AM EDT Office Visit [facility] [address] [place] [address] [address] [place] [phone] Ryan Dallas MD [address] [facility] [place] [address] [facility] Start: 01-20-2024 End: 01-20-2024 ambulatory 01/20/2024 11:00 AM EST Treatment [facility] [address] [place] [phone] Elmer Pettit, PT [address] [place] [address] [facility] Start: 01-18-2024 End: 01-18-2024 ambulatory 01/18/2024 11:30 AM EST Treatment [facility] [address] [place] [phone] Ria Snyder, STEEL MELTER [address] [place] [address] [facility] Start: 01-14-2024 End: 01-14-2024 ambulatory 01/14/2024 1:00 PM EST Treatment [facility] [address] [place] [phone] Ria Snyder, STEEL MELTER [address] [place] [address] [facility] Start: 01-12-2024 End: 01-12-2024 ambulatory 01/12/2024 12:30 PM EST Treatment [facility] [address] [place] [phone] Ria Snyder, STEEL MELTER [address] [place] [address] [facility] Start: 01-11-2024 End: 01-11-2024 Patient encounter procedure 01/11/2024 11:00 AM EST Office Visit [facility] [address] [place] [address] Yoanna Dorsey APRN-FIRE SPRINKLER FITTER [address] [place] [address] [facility] Start: 01-06-2024 End: 01-06-2024 ambulatory [facility] Start: 01-04-2024 End: 01-04-2024 ambulatory 01/04/2024 11:30 AM EST Treatment [facility] [address] [place] [phone] Ria Snyder, STEEL MELTER [address] [place] [address] [facility] Start: 12-31-2023 End: 12-31-2023 ambulatory 12/31/2023 10:00 AM EST Treatment [facility] [address] [place] [address] Ria Snyder, STEEL MELTER [address] [place] [address] [facility] Start: 12-30-2023 End: 12-30-2023 ambulatory 12/30/2023 11:30 AM EST Treatment [facility] [address] [place] [address] Elmer Pettit, PT [address] [place] [address] [facility] Start: 12-28-2023 End: 12-28-2023 ambulatory 12/28/2023 11:30 AM EST Treatment [facility] [address] [place] [address] Ria Snyder, STEEL MELTER [address] [place] [address] [facility] Start: 07-23-2023 COVID-19 Vaccine ( season) COVID-19 Vaccine ( season) [facility] Start: 07-23-2023 Influenza vaccination Influenza Vaccine [facility] Start: 08-21-2021 DTaP,Tdap and Td Vaccines (2 - Td or Tdap) DTaP,Tdap and Td Vaccines (2 - Td or Tdap) [facility] Start: 01-17-2010 Administration of varicella zoster vaccine Zoster (Shingles) Vaccine (2 of 3) [facility] Start: 1963 Adult BMI Follow Up Plan Adult BMI Follow Up Plan [facility] Start: 1945 Medicare Annual Wellness Visit Medicare Annual Wellness Visit [facility] End: 01-07-2025 CBC W Auto Differential panel - Blood CBC auto differential Lab Routine Essential tremor Balance problem Polyneuropathy 1 Occurrences starting 01/07/2024 until 01/07/2025 [facility] [employer] Comment on above: 1 Occurrences starting 01/07/2024 until 01/07/2025 End: 01-07-2025 Cyanocobalamin vitamin b-12 Vitamin B12 Lab Routine Balance problem Polyneuropathy 1 Occurrences starting 01/07/2024 until 01/07/2025 [facility] [employer] Comment on above: 1 Occurrences starting 01/07/2024 until 01/07/2025 End: 01-07-2025 Ferritin [Mass/volume] in Serum or Plasma Ferritin Lab Routine Polyneuropathy Abnormal level of blood mineral 1 Occurrences starting 01/07/2024 until 01/07/2025 [facility] [employer] Comment on above: 1 Occurrences starting 01/07/2024 until 01/07/2025 End: 01-07-2025 Folate [Mass/volume] in Serum or Plasma Folate Serum Lab Routine Balance problem Polyneuropathy 1 Occurrences starting 01/07/2024 until 01/07/2025 [facility] [employer] Comment on above: 1 Occurrences starting 01/07/2024 until 01/07/2025 End: 01-07-2025 Hemoglobin A1c/Hemoglobin.total in Blood Hemoglobin A1c Lab Routine Balance problem Polyneuropathy Prediabetes 1 Occurrences starting 01/07/2024 until 01/07/2025 [facility] Comment on above: 1 Occurrences starting 01/07/2024 until 01/07/2025 End: 01-07-2025 Homocysteine total Homocysteine total Lab Routine Balance problem Polyneuropathy Essential (primary) hypertension 1 Occurrences starting 01/07/2024 until 01/07/2025 [facility] [employer] Comment on above: 1 Occurrences starting 01/07/2024 until 01/07/2025 End: 01-07-2025 Immunoelectrophoresis for Therapy Monitoring Immunoelectrophoresis for Therapy Monitoring Lab Routine Balance problem Polyneuropathy 1 Occurrences starting 01/07/2024 until 01/07/2025 [facility] [employer] Comment on above: 1 Occurrences starting 01/07/2024 until 01/07/2025 End: 01-07-2025 Iron and TIBC Iron and TIBC Lab Routine Essential tremor Balance problem Polyneuropathy Abnormal level of blood mineral 1 Occurrences starting 01/07/2024 until 01/07/2025 [facility] [employer] Comment on above: 1 Occurrences starting 01/07/2024 until 01/07/2025 End: 01-07-2025 Methylenetetrahydrofolate reductase Methylenetetrahydrofolate reductase Lab Routine Balance problem Polyneuropathy 1 Occurrences starting 01/07/2024 until 01/07/2025 [facility] 1 Occurrences starting 01/07/2024 until 01/07/2025 End: 01-07-2025 Methylmalonic acid screen Methylmalonic acid screen La b Routine Balance problem Polyneuropathy 1 Occurrences starting 01/07/2024 until 01/07/2025 [facility] Comment on above: 1 Occurrences starting 01/07/2024 until 01/07/2025 End: 01-07-2025 Protein electrophoresis, serum Protein electrophoresis, serum Lab Routine Balance problem Polyneuropathy 1 Occurrences starting 01/07/2024 until 01/07/2025 [facility]: 1 Occurrences starting 01/07/2024 until 01/07/2025 End: 01-07-2025 Thyroid profile includes TSH FT4 Thyroid profile includes TSH FT4 Lab Routine Balance problem Polyneuropathy Prediabetes 1 Occurrences starting 01/07/2024 until 01/07/2025 [facility] Comment on above: 1 Occurrences starting 01/07/2024 until 01/07/2025 Immunizations Immunization Date Immunization Notes Care Provider [facility] 03-12-2021 COVID-19, mRNA, LNP- S, PF, 100mcg/0.5mL Dose John Johnson MD Work Phone: [facility] 03-11-2021 Moderna SARS-CoV-2 Vaccination Ria Snyder [employer]TER Work Phone: [facility] 02-12-2021 COVID-19, mRNA, LNP- S, PF, 100mcg/0.5mL Dose John Johnson MD Work Phone: [facility] 02-11-2021 Moderna SARS-CoV-2 Vaccination Ria Snyder [employer]TER Work Phone: [facility] 11-12-2020 pneumococcal conjuga te vaccine, 13 valent John Johnson MD Work Phone: [facility] 09-17-2020 influenza, high dose seasonal, preservative-free John Johnson MD Work Phone: [facility] 09-17-2020 Seasonal, quadrivale nt, recombinant, injectable influenza vaccine, preservative free John Johnson MD Work Phone: [facility] 09-17-2020 influenza virus vacc ine, unspecified formulation John Johnson MD Work Phone: [facility] 08-30-2019 Seasonal, quadrivale nt, recombinant, injectable influenza vaccine, preservative free John Johnson MD Work Phone: [facility] 08-29-2018 influenza, injectabl e, quadrivalent, preservative free John Johnson MD Work Phone: [facility] 08-22-2015 influenza, seasonal, injectable, preservative free Ria Snyder [employer]TER Work Phone: [facility] 08-13-2015 pneumococcal polysaccharide vaccine, 23 valent Ria Snyder [employer]TER Work Phone: [facility] 08-21-2011 tetanus and diphther ia toxoids, adsorbed, preservative free, for adult use (5 Lf of tetanus toxoid and 2 Lf of diphtheria toxoid) John Johnson MD Work Phone: [facility] 11-22-2009 zoster vaccine, live Juan Snyder [employer] Work Phone: [facility] 11-22-2009 zoster vaccine, unspecified formulation John Johnson MD Work Phone: [facility] Payers Date Payer Category Payer Private Health Insurance 2021 Medicare [id number] 2021 Medicare [id number] 2014 Medicare [id number] 1945 Unknown [id number] 2.16. [id number] 1945 Unknown [id number] 2.16. 840.1.787212.3.579.2.175 1945 Unknown [id number] 2.16. 840.1.095915.3.579.2.196 1945 Unknown [id number] 2.16. 840.1.800938.3.579.2.196 1945 Unknown [id number] 2.16. 840.1.654674.3.579.2.196 1945 Unknown [id number] 2.16.84 0.1.158608.3.579.2.1286 194 Unknown [id number] 2.16.84 0.1.659708.3.579.2.1286 194 Unknown [id number] 2.16.84 0.1.003261.3.579.2.1259 -194 Unknown [id number] 2.16.84 0.1.385694.3.579.2.1259 194 Unknown [id number] 2.16.84 0.1.182171.3.579.2.1259 -194 Unknown [id number] 2.16.84 0.1.847919.3.579.2.1259 -194 Unknown [id number] 2.16.84 0.1.200777.3.579.2.1259 -1945 Unknown [id number] 2.16.84 0.1.461389.3.579.2.1259 -194 Unknown [id number] 2.16.84 0.1.162039.3.579.2.1259 -194 Unknown [id number] 2.16.84 0.1.434092.3.579.2.1259 1945 Unknown [id number] 2.16.84 0.1.987079.3.579.2.9 1945 Unknown [id number] 2.16.84 0.1.549792.3.579.2.1259 1945 Unknown [id number] 2.16.840 .1.112037.3.579.2.9 1945 Unknown [id number] 2.16.840 .1.248320.3.579.2.1259 1945 Unknown [id number] 2.16.840 .1.610245.3.579.2.9 1945 Unknown [id number] 2.16.840 .1.390307.3.579.2.9 1945 Unknown [id number] 2.16.840 .1.192282.3.579.2.1258 1945 Unknown [id number] 2.16.8 40.1.448131.3.579.2.1286 Social History Date Type Detail Facility Start: 06-04-2023 End: 11-29-2023 Tobacco smoking status NHIS Never smoked tobacco [facility] History of tobacco use Passive smoker [facility] Start: 06-04-2023 End: 11-29-2023 Tobacco use and exposure Smokeless tobacco non-user [facility] Start: 11-29-2023 End: 01-07-2024 Alcohol intake Current non-drinker of alcohol (finding) [facility] Start: 12-03-2020 End: 11-29-2023 Alcohol intake [facility] Start: 12-03-2020 End: 11-29-2023 Tobacco use panel [facility] Adolescent depressio n screening assessment 0 [facility] Start: 1945 Sex Assigned At Female [facility] Start: 05-22-2021 Gender identity Identifies as female gender (finding) [facility] Start: 05-22-2021 Sexual orientation Heterosexual (finding) [facility] Start: 12-07-2023 Alcohol intake Current drinker of alcohol (finding) [facility] Start: 05-04-2023 Alcohol Comment caffeine: occasional [facility] Start: 1945 Sex Assigned At Not on file [facility] Medical Equipment Procedure Code Equipment Code Equipment Origin al Text Equipment Identifier Dates Patch Dura 1x1in Drmtrx-[place] + Clgn Rgnrt Membr Strl - [id number] Start: 07-03-2021 Goals Date Patient Goal Desired Activity /State Personal health goal Comment on above: Formatting of this n ote might be different from the original. Evaluation of progress towards goal: safe transition from hospital to home with support of her friends/neighbors History of Present illness Narrative 01-07-2024 CHACE Rayo - 01/07/2024 10:30 AM EST Note Date & Type Note Facility 01-07-2024 History of Present illness Narrative Images from the original note were not included. Subjective: Patient ID: Angela Ruth is a 78 y.o. female presenting for neurological follow-up. History of Present Illness: Angela Ruth is followed regarding increase in common migraine cephalgia that have been present several years. They are usually steady and pressure-like but sometimes throbbing and pounding. They are associated with photophobia, nausea, rare vomiting. She denies positive or negative visual phenomena, circumoral or acral paresthesias, paresis. Activity makes them worse. The headaches usually last 2 to 3 days. They can originate in her bilateral occiput and are improved with occipital nerve blocks. Migraine History: 12/2020: daily occipital HAs, 3-4 migraines/week 03/2021: daily occipital HAs, 1 migraine/wk 09/2021: Headache about twice a week 01/2022: constant headache for 1-2 months, migraines 2-3x/wk (high BP) 02/18/2022: 2 headaches last week 10/2022: 2 headaches/month 04/2023: 2-3 headaches/month 12/2023: evening tension NEVAREZ, migraine 1-2 times a month Current Meds: Amitriptyline ASA Atorvastatin Carvedilol 25 mg BID Fenofibrate Fioricet Gabapentin 600 mg TID Hydralazine Lexapro Lunesta 1 mg Oxybutynin XL Procardia XL Synthroid Tizanidine 8 mg nightly Ubrelvy Previous Meds: Midrin Migraine cocktails Propranolol Depakote (migraines) Inderal (tremors) Gabapentin 200 mg nightly [place] PRN Occipital nerve blocks (last 03/2021) Tizanidine 4 mg HS Topamax 100 mg (100 + 200 mg) Verapamil SR 120 mg Zonisamide Testing: CT brain (01/04/2018): Subdural hematoma along the posterior falx CT cervical (01/04/2018): No acute pathology seen in the cervical spine CT brain (01/05/2018): No change in size or appearance of subdural hematoma in the interhemispheric fissure. CT brain (01/06/2018): No change in size or appearance of subdural hematoma in the interhemispheric fissure. CT brain (01/21/2018): Normal CT brain with resolution of the subdural hematoma seen on the previous examination dated 01/06/2018 MRI cervical (11/29/2020): Multilevel disc disease and facet arthropathy similar to prior study. Modest stenosis detailed above. IR lumbar myelogram (02/09/2022): Posterior fusion hardware from L3 to L5. Intrathecal contrast injection with outline of the exiting nerve roots and central canal. CT lumbar (02/09/2022): There is redemonstration of extensive post surgical changes, with posterior fusion from L3 to L5. There appears to be interval postsurgical changes with laminotomy and foraminotomy at the right L1-L2 and bilateral L2-L3. Hardware appears uncomplicated. Redemonstration of multilevel degenerative changes. There is compression of the right anterolateral thecal sac at L5-S1 by disc, scar or synovial cyst, unchanged. Left neural foraminal narrowing at L4-L5 and right neural foraminal narrowing at T12-L1 by osteophytes, unchanged. There is redemonstration of indentation of the right posterior lateral thecal sac at L2-L3, with mild central canal narrowing, overall relatively stable. CT brain (02/13/2022): No evidence of intracranial hemorrhage or acute pathology. No evidence of abnormal enhancing pathology intracranially. Bilateral chronic maxillary sinusitis. Pertinent Medical History: Essential tremor (treated with propranolol) Dyslipidemia Chronic low back pain RFA (left L4-5, L5-S1): early 2018 Sleep/Social History: History of insomnia improved with medications. Three or four nights a week she has a 3 hr sleep latency because she is restless and cannot stop thinking. She wakes up at 5:15 a.m. 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 Sleep is not restorative and she is constantly tired. Current Visit: Seen in December 2023, she is quite stable neurologically. She only has 1-2 migraines a month. Ubrelvy typically works well for these headaches. She notes that she is having more neck pain and tension headaches as the day progresses. She is working with pain management and will have nerve blocks with the hopes of qualifying for a nerve ablation. She is hopeful that this will help minimize the tension headaches. She continues to do the exercises and stretches she learned at physical therapy. She has been taking 50 mg amitriptyline for sleep. She takes 8 mg tizanidine for muscle spasms and tightness. She tried to stop it, but the discomfort worsened. She usually gets about 6-7 hours of sleep a night total while taking it. She may wake up once in the middle of the night for about an hour. She then sleeps another 3-4 hours. Her balance is generally pretty good. She feel backwards on one occasion when she was getting out of the car. She ended up hitting her head on the house. Her balance is poor with her eyes closed or if she does not look where she is walking. This suggests some nerve damage in her feet. We will do labs to look for reversible causes of the nerve damage. The following portions of the patient's history were reviewed and updated as appropriate: allergies, current medications, past family history, past medical history, past social history, past surgical history and problem list. Review of Systems Constitutional: Negative for activity change, appetite change, chills, diaphoresis, fatigue and fever. HENT: Negative for ear pain, facial swelling, hearing loss, tinnitus, trouble swallowing and voice change. Eyes: Negative for photophobia, pain, redness and visual disturbance. Respiratory: Negative. Cardiovascular: Negative. Gastrointestinal: Negative for diarrhea, nausea and vomiting. Endocrine: Negative. Genitourinary: Negative for difficulty urinating, dysuria and urgency. Musculoskeletal: Positive for back pain. Negative for arthralgias, gait problem, joint swelling and neck pain. Skin: Negative. Allergic/Immunologic: Negative. Neurological: Positive for headaches. Negative for dizziness, tremors, seizures, syncope, facial asymmetry, speech difficulty, weakness, light-headedness and numbness. Hematological: Negative. Psychiatric/Behavioral: Negative for agitation, behavioral problems, confusion, decreased concentration, dysphoric mood, hallucinations, self-injury, sleep disturbance and suicidal ideas. The patient is not nervous/anxious and is not hyperactive. Past Medical History: Diagnosis Date Age related osteoporosis Allergic 1951 Allergic rhinitis 1951 Arthritis Asthma Atrophy of vocal cord Basal cell carcinoma of skin Benign familial tremor BPPV (benign paroxysmal positional vertigo) Breast disorder 4 biopsies Bronchitis 01/01/2017 Cancer ([facility]) Basal cell Carpal tunnel syndrome Cataract Chronic constipation Chronic pain disorder Dental disease Crowns Depression Diastolic dysfunction Essential hypertension Fibromyalgia GERD (gastroesophageal reflux disease) Sky's thyroiditis Hyperlipidemia Hypertension Hypothyroidism IBS (irritable bowel syndrome) Inflammatory bowel disease 1997 Low back pain Lumbosacral disc disease LVH (left ventricular hypertrophy) Migraines Osteoarthritis Osteopenia Pancreatitis Persistent insomnia PND (post-nasal drip) PONV (postoperative nausea and vomiting) Prolonged emergence from general anesthesia Recurrent UTI 2021 Retinopathy Scoliosis Shingles 2008 Skin cancer Subjective tinnitus Varicella 1953 Vertigo Visual impairment Glasses Past Surgical History: Procedure Laterality Date ADENOIDECTOMY 1952 APPENDECTOMY 1965 ARM SURGERY 2019. BACK SURGERY Upper Back Surgery BREAST BIOPSY 1979, 1999 BREAST SURGERY 1981 2002 Biopsy four times CHOLECYSTECTOMY 2001 COLONOSCOPY w/ bx N/A 07/07/2018 Performed by Lalit Leach MD at [facility] ENDOSCOPY COSMETIC SURGERY 1984 DISCECTOMY 1989 Partial L4-5 EGD 2001 EYE SURGERY 2015 FOOT SURGERY 2009 Reattachment of tendon left foot with bone graft HIP SURGERY 2004 Excision of bursa left hip HYSTERECTOMY 1984 INJECTION BLOCK EPIDURAL STEROID LUMBAR/SACRAL Left L 5,1 NR Left 12/20/2020 Performed by Shubham Clifton MD at [facility] INJECTION BLOCK NERVE MEDIAL BRANCH right C 4/5,5/6 Right 05/22/2022 Performed by Shubham Clifton MD at [facility] INJECTION BLOCK NERVE MEDIAL BRANCH right C 4/5,5/6 Right 04/17/2022 Performed by Shubham Clifton MD at [facility] INJECTION CAUDAL EPIDURAL WITH CATHETER, STEROID N/A 03/07/2018 Performed by Shubham Clifton MD at [facility] LARGE JOINT BURSA: bilat hip Bilateral 12/10/2017 Performed by Shubham Clifton MD at [facility] MEDIAL BRANCH NERVE BLOCK Bilateral L 4/5, 5/1 Bilateral 06/28/2017 Performed by Shubham Clifton MD at [facility] MEDIAL BRANCH NERVE BLOCK Right L 2/3, 3/4 Right 12/08/2019 Performed by Shubham Clifton MD at [facility] MEDIAL BRANCH NERVE BLOCK RIGHT L23 34 Right 01/19/2020 Performed by Shubham Clifton MD at [facility] SI JOINT Bilateral 04/09/2017 Performed by Shubham Clifton MD at [facility] SI JOINT Bilateral SI Joint Bilateral 05/31/2020 Performed by Shubham Clifton MD at [facility] SI JOINT Left SI JOint Left 01/06/2019 Performed by Shubham Clifton MD at [facility] SI JOINT Right SI Joint Right 06/09/2019 Performed by Shubham Clifton MD at [facility] SPINE TRANSFORAMINAL Left L 4, 5 NR Left 09/24/2017 Performed by Shubham Clifton MD at [facility] SPINE TRANSFORAMINAL Left L 5,1 Nroot Left 01/08/2023 Performed by Shubham Clifton MD at [facility] SPINE TRANSFORAMINAL Right L 5,1 Nroot Right 11/27/2022 Performed by Shubham Clifton MD at [facility] STEROID EPI 1 WITH SEDATION Left 5,1 NR Left 05/08/2019 Performed by Shubham Clifton MD at [facility] KNEE ARTHROSCOPY 2010, 2013 KNEE SURGERY 2010 2013 Arthroscopy bilateral/repair meniscus right X2, left X1 LAMINECTOMY LUMBAR FORAMENOTOMY MULTI LEVEL L1-2 RIGHT/L2-3 BILATERAL/LUMBAR DRAIN INSERTION N/A 07/03/2021 Performed by Corey Chacon MD at [facility] LAPAROTOMY OOPHERECTOMY Bilateral 1984 LUMBAR DISCECTOMY LUMBAR FUSION 2010 L3-5 LUMBAR LAMINECTOMY MICRO LUMBAR DISCECTOMY L5-S1/ FORAMINOTOMY L5-S1 Left 01/14/2017 Performed by Corey Chacon MD at [facility] OOPHORECTOMY 1982 OTHER SURGICAL HISTORY Knee Arthroscopy With Medial Meniscus Repair OTHER SURGICAL HISTORY Spinal Diskectomy RADIO FREQUENCY ABLATION Left L 4/5, 5/1 Left 12/02/2018 Performed by Shubham Clifton MD at [facility] RADIO FREQUENCY ABLATION Left L 4/5, 5/1 Left 07/30/2017 Performed by Shubham Clifton MD at [facility] RADIO FREQUENCY ABLATION Left SI joint Left 03/31/2019 Performed by Shubham Clifton MD at [facility] RADIO FREQUENCY ABLATION Right L2/3, 3/4 Right 03/29/2020 Performed by Shubham Clifton MD at [facility] RADIOFREQUENCY ABLATION SPINAL Left Si joint Left 05/07/2017 Performed by Shubham Clifton MD at [facility] RADIOFREQUENCY ABLATION SPINAL Right C 4/5,5/6 Right 06/26/2022 Performed by Shubham Clifton MD at [facility] RADIOFREQUENCY ABLATION SPINAL RIGHT SI JOINT Right 05/21/2017 Performed by Shubham Clifton MD at [facility] RELEASE CARPAL TUNNEL Left 11/04/2021 Performed by Corey Chacon MD at [facility] SHOULDER SURGERY 2011 Right rotator cuff SKIN BIOPSY 2000 SPINE SURGERY 1989,2006,2017, 2020 STEROID INJECTION KNEE Right 04/2017 SYNVISC KNEE INJECTION TONSILLECTOMY AND ADENOIDECTOMY TRIGGER FINGER RELEASE Right x2 TRIGGER FINGER RELEASE Right 04/2018 2 fingers WRIST SURGERY Right DeQuervins Allergies Allergen Reactions Indocin [Indomethacin] Hypotension fainting Lincocin [Lincomycin] Anaphylaxis Lincosamides Anaphylaxis Adhesive States causes blisters/even paper tape Eggshell Membrane States medications grown on/flu shot arm swelled when exposed to egg shell Influenza Virus Vaccines Swelling Sulfa (Sulfonamide Antibiotics) Hives Other Other (See Comments) Poultry Sulfamethoxazole-Trimethoprim Hives Aspartame Other (See Comments) migraines Augmentin [Amoxicillin-Pot Clavulanate] Rash Tolerated cefazolin in June of 2021. Clavulanic Acid Rash Clemizole Rash Daypro [Oxaprozin] Rash Penicillins Rash Tolerated cefazolin in June of 2021. Social History Socioeconomic History Marital status: Spouse name: Not on file Number of children: Not on file Years of education: Not on file Highest education level: Not on file Occupational History Not on file Tobacco Use Smoking status: Never Passive exposure: Past Smokeless tobacco: Never Vaping Use Vaping Use: Never used Substance and Sexual Activity Alcohol use: No Drug use: No Sexual activity: Not Currently control/protection: Post-menopausal Other Topics Concern Caffeine Use Yes Social History Narrative Lives alone in a one story home with a ramp and one step into the home. 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 Has a tub/shower bathing. Has a rollator; neighbor will help after surgery. Has a cat Social Determinants of Health Financial Resource Strain: Not on file Food Insecurity: No Food Insecurity (01/07/2024) Hunger Screening Food Insecurity - Worry: Never True Food Insecurity - Inability: Never True Transportation Needs: Not on file Physical Activity: Not on file Stress: Not on file Social Connections: Not on file Interpersonal Safety: Not on file Housing Instability: Not on file Family History Problem Relation Age of Onset Breast cancer Mother Heart disease Mother Anesthesia problems Mother Mother with N/V Colon cancer Mother 72 Hypertension Mother Back Problems Father COPD Father Arthritis Father Breast cancer Maternal Grandmother Ovarian cancer Maternal Grandmother Uterine cancer Maternal Grandmother Heart disease Maternal Grandfather Diabetes Paternal Grandmother Memory loss Paternal Grandmother Stroke Paternal Grandmother Arthritis Paternal Grandmother Stroke Paternal Grandfather Diabetes Paternal Grandfather Alcohol abuse Paternal Uncle COPD Paternal Uncle Breast cancer Maternal Aunt Vision loss Maternal Aunt Breast cancer Maternal Aunt Breast cancer Maternal Aunt Breast cancer Maternal Aunt Breast cancer Maternal Aunt Colon cancer Maternal Uncle COPD Paternal Uncle Early Maternal Aunt Heart disease Maternal Uncle Heart disease Maternal Uncle Heart disease Maternal Uncle Heart disease Maternal Uncle Bleeding Disorder Neg Hx Clotting disorder Neg Hx Current Outpatient Medications on File Prior to Visit Medication Sig acetaminophen (TYLENOL EXTRA STRENGTH) 500 mg tablet Take 2 tablets (1,000 mg total) by mouth every 6 (six) hours as needed for pain. albuterol (PROVENTIL HFA;VENTOLIN HFA) 90 mcg/actuation inhaler Inhale 2 puffs every 4 (four) hours as needed for wheezing or shortness of breath. PRO AIR alendronate (FOSAMAX) 35 mg tablet take 1 tablet by mouth every 7 days IN THE MORNING 30 MINUTES before FIRST FOOD, BEVERAGE, OR MEDICATION with 6 to 8 ounce(s) OF WATER ascorbic acid (VITAMIN C) 500 mg tablet Take 2 tablets (1,000 mg total) by mouth in the morning. aspirin 81 mg Take 1 tablet (81 mg total) by mouth in the morning. cxcfqlw-kkvcdvguskvvc-htfooazv (EXCEDRIN MIGRAINE) 250-250-65 mg per tablet Take 1 tablet by mouth every 6 (six) hours as needed for headaches. atorvastatin (LIPITOR) 40 mg tablet Take 1 tablet (40 mg total) by mouth in the morning. buprenorphine (BUTRANS) 7.5 mcg/hour patch weekly Place 1 patch on the skin once a week. dctafecuzs-iduhlxksdeawh-cpks (ESGIC) 50-325-40 mg per tablet Take 1 tablet by mouth every 4 (four) hours as needed for headaches. No more than 2 tablets daily, and no more than 2 days a week. calcium carbonate-vitamin D3 600 mg(1,500mg) -800 units tablet Take 600 mg by mouth nightly Indications: prevention of vitamin D deficiency. carvediloL (COREG) 25 mg tablet Take 1 tablet (25 mg total) by mouth in the morning and 1 tablet (25 mg total) before bedtime. cholecalciferol, vitamin D3, (VITAMIN D3) 1,000 units tablet 1 tablet (1,000 Units total) before breakfast Indications: low vitamin D levels. escitalopram (LEXAPRO) 20 mg tablet Take 1 tablet (20 mg total) by mouth daily with dinner Indications: major depressive disorder. famotidine (PEPCID) 20 mg tablet Take 1 tablet (20 mg total) by mouth nightly. fenofibrate (LOFIBRA) 160 mg tablet Take 1 tablet (160 mg total) by mouth nightly. fexofenadine (RALPH) 180 mg tablet Take 1 tablet (180 mg total) by mouth daily with breakfast. hydrALAZINE (APRESOLINE) 100 mg tablet Take 1 tablet (100 mg total) by mouth Daily at 0700. Take one three times a day may take an additional 50mg daily if Systolic BP is greater than 170 L.acidoph/B.animalis/B.longum (FLORAJEN DIGESTION ORAL) Take 1 tablet by mouth in the morning. levothyroxine (SYNTHROID, LEVOTHROID) 150 MCG tablet Take 1 tablet (150 mcg total) by mouth before breakfast Indications: a condition with low thyroid hormone levels. lisinopril-hydroCHLOROthiazide (ZESTORETIC) 20-12.5 mg per tablet Take 1 tablet by mouth in the morning. magnesium 250 mg tablet Take 2 tablets (500 mg total) by mouth in the morning. Indications: for migraine prevention. At supper time. omeprazole (PriLOSEC) 40 mg capsule Take 1 capsule (40 mg total) by mouth in the morning. oxybutynin XL (DITROPAN-XL) 10 mg 24 hr tablet Take 1 tablet (10 mg total) by mouth daily with breakfast. therapeutic multivitamin (THERAGRAN) tablet Take 1 tablet by mouth daily with dinner. zafirlukast (ACCOLATE) 20 mg tablet Take 1 tablet (20 mg total) by mouth in the morning and 1 tablet (20 mg total) before bedtime. No current facility-administered medications on file prior to visit. OARRS was reviewed by CHACE Rayo. Objective: BP 124/78 (BP Site: Right Arm, BP Postition: Sitting) Pulse 80 Ht 160 cm (5' 3 ) Wt 70.8 kg (156 lb) BMI 27.63 kg/m Physical Exam: Mental Status: Orientation: Oriented. Level of consciousness: alert. Knowledge: good and consistent with education. Intact short-term memory and intact long-term memory. Vocabulary is normal. Memory: Appears normal. Attention span is normal. Concentration is normal. Speech: Normal quality. Language: Normal. Cranial Nerves: CN I: Intact CN II: Visual montgomery full to confrontation. CN II - Visual Acuity: Normal in right eye and left eye. CN III, IV, : CN III: PERRLA, EOM full, no nystagmus, no ptosis and no RUSSEL. Pupil Size: right = left. CN V: Facial sensation intact to pin. CN VII: Facial expression fully symmetric. CN VIII: CN VIII normal. CN IX, X: CN IX and X normal. CN XI: CN XI normal. CN XII: CN XII normal. Motor: Muscle Bulk: Normal. Muscle Tone: Normal. Power: Normal strength throughout. Muscle Strength: Strength 5/5 througout Fasciculations: None Myotonia: No myotonia. Sensory: Right leg light touch decreased from ankle. Left leg light touch decreased from ankle. Vibration normal in upper and lower extremities. Proprioception: Normal in upper and lower extremities. Right leg pinprick decreased from ankle. Left leg pinprick decreased from ankle. Gait/Coord/DTR: Abnormal Gait: abnormal gait (trendelenburg gait. left hip is lower than right hip. ). Unable to tandem walk. Coordination: Normal. Tremor: Absent. Involuntary Movements: no abnormal movement. Myoclonus: None. Reflexes: Right brachioradialis 2+ Left brachioradialis 2+ Right biceps 2+ Left biceps 2+ Right triceps 2+ Left triceps 2+ Right patellar 2+ Left patellar 2+ Right achilles 2+ Left achilles 2+ General Exam: Constitutional: Well-developed, well-nourished . Assistive devices: Glasses and cane. Eyes: Normal appearance, no icterus. Neck: Normal appearance. Cardiovascular: Normal rate and regular rhythm. Psychiatric: Normal mood/affect, good eye contact, behaving normally, normal thought content, normal judgment and normal psychomotor. Musculoskeletal: Tenderness noted in right side greater trochanter No tenderness noted in cervical spine, thoracic spine, lumbar spine, left side greater trochanter and head/skullTenderness: Known right hip bursitis .Pulmonary: Effort: Pulmonary effort is normal. Assessment/Plan: 01/07/2024 OV: Seen in December 2023, she is quite stable neurologically. She only has 1-2 migraines a month. UbMoneyMan typically works well for these headaches. She notes that she is having more neck pain and tension headaches as the day progresses. She is working with pain management and will have nerve blocks with the hopes of qualifying for a nerve ablation. She is hopeful that this will help minimize the tension headaches. She continues to do the exercises and stretches she learned at physical therapy. She has been taking 50 mg amitriptyline for sleep. She takes 8 mg tizanidine for muscle spasms and tightness. She tried to stop it, but the discomfort worsened. She usually gets about 6-7 hours of sleep a night total while taking it. She may wake up once in the middle of the night for about an hour. She then sleeps another 3-4 hours. Her balance is generally pretty good. She feel backwards on one occasion when she was getting out of the car. She ended up hitting her head on the house. Her balance is poor with her eyes closed or if she does not look where she is walking. This suggests some nerve damage in her feet. We will do labs to look for reversible causes of the nerve damage. Problem List Items Addressed This Visit Cardiovascular and Mediastinum Migraine without aura and without status migrainosus, not intractable - Primary Relevant Medications amitriptyline (ELAVIL) 50 mg tablet tiZANidine (ZANAFLEX) 4 mg tablet UBRELVY 100 mg tablet UBRELVY 100 mg tablet Nervous and Auditory Essential tremor Relevant Orders CBC auto differential Iron and TIBC Bilateral occipital neuralgia Relevant Medications amitriptyline (ELAVIL) 50 mg tablet tiZANidine (ZANAFLEX) 4 mg tablet UBRELVY 100 mg tablet UBRELVY 100 mg tablet Cervicalgia Relevant Medications tiZANidine (ZANAFLEX) 4 mg tablet Musculoskeletal and Integument Trapezius muscle spasm Relevant Medications tiZANidine (ZANAFLEX) 4 mg tablet Other Psychophysiological insomnia Relevant Medications amitriptyline (ELAVIL) 50 mg tablet tiZANidine (ZANAFLEX) 4 mg tablet Balance problem Relevant Orders Methylmalonic acid screen Vitamin B12 Thyroid profile includes TSH FT4 Immunoelectrophoresis for Therapy Monitoring Protein electrophoresis, serum Homocysteine total Folate Serum Methylenetetrahydrofolate reductase Hemoglobin A1c CBC auto differential Iron and TIBC Other Visit Diagnoses Polyneuropathy Relevant Orders Methylmalonic acid screen Vitamin B12 Thyroid profile includes TSH FT4 Immunoelectrophoresis for Therapy Monitoring Protein electrophoresis, serum Homocysteine total Folate Serum Methylenetetrahydrofolate reductase Hemoglobin A1c Ferritin CBC auto differential Iron and TIBC Prediabetes Relevant Orders Thyroid profile includes TSH FT4 Hemoglobin A1c Essential (primary) hypertension Relevant Orders Homocysteine total Abnormal level of blood mineral Relevant Orders Ferritin Iron and TIBC Decreased hearing of both ears Relevant Orders Hearing Evaluation (Audiology) Patient noted to have elevated BMI and the following intervention(s) were applied: encouragement to exercise. Angela has been screened for clinical depression and the following plan(s) are recommended: patient follow-up to return when and if necessary. SUGGEST: #1. Good sleep hygiene. Go to bed and get up at the same time every day. Turn off electronics an hour before bedtime. Try relaxation techniques such as deep breathing exercises, yoga, or guided meditation for 20-30 minutes before bed. Sleep for 7-9 hours uninterrupted each night. Get up each morning and exercise. Start with whatever amount of time you can tolerate and increase up to 30 minutes. When that is easy, increase the intensity. Limit caffeine to the mornings only. #2. Stay well-hydrated. You should drink at least 80 ounces of water daily (unless otherwise limited by another provider). More if it is hot, you are active, or if you are consuming caffeine or alcohol. #3. Amitriptyline 50 mg tablets. Continue taking 1 tablet nightly for sleep, headaches, and back pain. #4. Continue Physical Therapy exercises and stretches to loosen neck and shoulder muscles. #5. Use Icy Hot, Biofreeze, Salon Pas patches, etc to neck and shoulder muscles to loosen muscles. Then massage with tennis or lacrosse ball to get knots out. #6. Ubrelvy 100 mg tablets. Take 1 tablet at the onset of a headache. You can repeat this once 2 hours later. Do not take more than 2 doses in 24-hours. #7. Blood work, fasting after midnight for causes of nerve damage. #8. Return to office in 6 months, earlier if needed. Total time spent was 30 minutes: Preparing to see the patient (e.g., review of tests) Obtaining and/or reviewing separately obtained history Performing a medically appropriate examination and/or evaluation Counseling and educating the patient/family/caregiver Ordering medications, tests, or procedures Referring and communicating with other health urgent care nurse practitioner (not separately reported) Documenting clinical information in the electronic or other health record Independently interpreting results (not separately reported) and communicating results to the patient/family/caregiver Care coordination (not separately reported) - Yoanna Dorsey DNP, APRN-CNP 01/07/24 10:53 AM [facility] 01/07/24 1053 documented in this encounter [facility] Instructions 01-07-2024 Patient Instructions Note Date & Type Note Facility 01-07-2024 Instructions [facility] - 01/07/2024 10:30 AM EST #1. Good sleep hygiene. Go to bed and get up at the same time every day. Turn off electronics an hour before bedtime. Try relaxation techniques such as deep breathing exercises, yoga, or guided meditation for 20-30 minutes before bed. Sleep for 7-9 hours uninterrupted each night. Get up each morning and exercise. Start with whatever amount of time you can tolerate and increase up to 30 minutes. When that is easy, increase the intensity. Limit caffeine to the mornings only. #2. Stay well-hydrated. You should drink at least 80 ounces of water daily (unless otherwise limited by another provider). More if it is hot, you are active, or if you are consuming caffeine or alcohol. #3. Amitriptyline 50 mg tablets. Continue taking 1 tablet nightly for sleep, headaches, and back pain. #4. Continue Physical Therapy exercises and stretches to loosen neck and shoulder muscles. #5. Use Icy Hot, Biofreeze, Salon Pas patches, etc to neck and shoulder muscles to loosen muscles. Then massage with tennis or lacrosse ball to get knots out. #6. Ubrelvy 100 mg tablets. Take 1 tablet at the onset of a headache. You can repeat this once 2 hours later. Do not take more than 2 doses in 24-hours. #7. Blood work, fasting after midnight for causes of nerve damage. #8. Return to office in 6 months, earlier if needed. documented in this encounter [facility] Note 12-13-2023 Telephone Encounter - Ira Rojas - 12/13/2023 11:57 AM EST Note Date & Type Note Facility 12-13-2023 Miscellaneous Notes Formattin g of this note might be different from the original. Okay to sign and send documented in this encounter [facility] Telephone encounter Note 12-13-2023 Telephone Encounter - Ira Rojas - 12/13/2023 11:57 AM EST Note Date & Type Note Facility 12-13-2023 Telephone encount er Note Okay to sign and send [facility] Evaluation note Note Date & Type Note Facility Evaluation note Diagnosis General weakness- Primary Other malaise and fatigue History of falling documented in this encounter [facility] Evaluation note Note Date & Type Note Facility Evaluation note Diagnosis Mixed hyperlipidemia (CMS/HCC)- Primary Mixed hyperlipidemia Stress incontinence of urine documented in this encounter [facility] Evaluation note Note Date & Type [...] & Type Note Facility Evaluation note Diagnosis Migraine without aura and without status migrainosus, not intractable- Primary Bilateral occipital neuralgia Essential tremor Cervicalgia Trapezius muscle spasm Balance problem Abnormality of gait Psychophysiological insomnia Persistent disorder of initiating or maintaining sleep Polyneuropathy Unspecified hereditary and idiopathic peripheral neuropathy Prediabetes Other abnormal glucose Essential (primary) hypertension Unspecified essential hypertension Abnormal level of blood mineral Other abnormal blood chemistry Decreased hearing of both ears documented in this encounter [facility] Instructions Note Date & Type Note Facility [...] FoundDocuments on File Type Date Recorded 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 07/16/2021 3:45 PM Living Will 07/16/2021 3:40 PM Latest Code Status on File Code Status Date Activated Date Inactivated Comments Full Code 03/02/2023 4:15 AM 03/03/2023 3:57 PM Code Status History Code Status Date Activated Date Inactivated Comments Full Code 07/03/2021 9:57 AM 07/10/2021 6:07 PM Full Code 01/04/2018 4:32 PM 01/06/2018 6:44 PM Full Code 01/14/2017 8:37 AM 01/15/2017 5:28 PM Documents on File Type Date Recorded 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 07/16/2021 3:45 PM Living Will 07/16/2021 3:40 PM Latest Code Status on File Code Status Date Activated Date Inactivated Comments Full Code 03/02/2023 4:15 AM 03/03/2023 3:57 PM Code Status History Code Status Date Activated Date Inactivated Comments Full Code 07/03/2021 9:57 AM 07/10/2021 6:07 PM Full Code 01/04/2018 4:32 PM 01/06/2018 6:44 PM Full Code 01/14/2017 8:37 AM 01/15/2017 5:28 PM Reason for Referral Specialty Diagnoses / Procedures Referred By Contac t Referred To Contact Diagnoses Decreased hearing of both ears Procedures Hearing Evaluation (Audiology) Yoanna Dorsey APRN-[employer]TER [address] [place] [address] Referral ID Status Reason Start Date Expiration Date V isits Requested Visits Authorized [id number] Pending Review 01/07/2024 01/06/2025 1 1 Additional Source Comments INFORMATION SOURCE (unrecogn ized section and content) DATE CREATED AUTHOR 05/13/2018 [facility] DATE CREATED AUTHOR AUTHOR'S ORGANIZ ATION 05/16/2018 [facility] DATE CREATED AUTHOR AUTHOR'S OR[facility]IZ ATION [facility] CREATED AUTHOR AUTHOR'S ORGANIZ ATION 11/13/2022 [facility] DATE CREATED AUTHOR AUTHOR'S ORGANIZ ATION 12/07/2022 [facility] dical Specialist DATE CREATED AUTHOR AUTHOR'S ORGANIZ ATION 09/11/2023 [facility] DATE CREATED AUTHOR AUTHOR'S ORGANIZ ATION 12/04/2023 [facility] DATE CREATED AUTHOR AUTHOR'S ORGANIZ ATION 12/06/2023 [facility] DATE CREATED AUTHOR AUTHOR'S ORGANIZ ATION 01/08/2024 [facility] dical Specialists [facility] DATE CREATED AUTHOR AUTHOR'S ORGANIZ ATION 01/09/2024 [facility] Reason for Visit (unrecogniz ed section and content) Reason Onset Date Comments Med Refill 12/13/2023 Specialty Diagnoses / Procedures Referred By Contac t Referred To Contact Physical Therapy Diagnoses Muscle weakness (generalized) Procedures TREATMENT Bia Cao MD [address] [place] [address] Elmer Pettit, PT [address] [place] [address] Referral ID Status Reason Start Date Expiration Date V isits Requested Visits Authorized [id number] Authorized 12/08/2023 06/05/2024 99 99 Reason Comments Med Refill Care Teams (unrecognized sec tion and content) 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 Start Date End Date Bia Cao MD [address] [place] [facility] [address] PCP - General Family Medicine 02/05/23 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 Specialty Start Date End Date Jacob Viveros PCP - [employer] 11/22/22 Bia Cao MD [address] [place] [facility] [address] PCP - General Family Medicine 04/29/23 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 Specialty Start Date End Date Jacob Viveros PCP - [employer] 11/22/22 Bia Cao MD [address] [place] [facility] [address] PCP - General Family Medicine 04/29/23 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 Specialty Start Date End Date Jacob Viveros PCP - [employer] 11/22/22 Bia Cao MD [address] [facility] [place] [address] PCP - General Family Medicine 04/29/23 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 Specialty Start Date End Date Jacob Viveros PCP - [employer] 11/22/22 Bia Cao MD [address] [place] [address] PCP - General Family Medicine 04/29/23 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 Specialty Start Date End Date Jacob Viveros PCP - [employer] 11/22/22 Bia Cao MD [address] [facility] [place] [address] PCP - General Family Medicine 04/29/23 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 [facility] [employer] [facility]. provides no warranty or guarantee of the accuracy or completeness of information in this document.
[2024-01-10 08:12] VITALS: BP 135/78; PULSE 82; RESP 16; TEMP 36.2; O2SAT 97
[2024-01-10 08:35] VITALS: BP 178/81; PULSE 79; RESP 18; O2SAT 96
[2024-01-10] MEDS: LIDOCAINE HCL 2% PF 100 MG/5 ML VIAL INJ (08:35)
[2024-01-10] MEDS: BUPIVACAINE HCL 0.25% PF 25 MG/10 ML VIAL INJ (08:35)
[2024-01-10 08:36] VITALS: BP 175/75; PULSE 80; RESP 18; O2SAT 95
--- NOTE | 2024-01-10 08:39 | W.PM.PROCNOT ---
Date of procedure: 01/10/24 Pre-op diagnosis: Cervical spondylosis Post-op diagnosis: same as pre-op Procedure: Procedure: Right C2-3, 3-4 medial branch block Medications: Bupivacaine 0.25% 3cc The patient was seen and examined in the preoperative holding area.? The informed consent was obtained and placed on the chart.? The patient was brought to the medical procedure unit and placed in the prone position.? A timeout was completed verifying correct patient, procedure site, positioning, plan, and special equipment.? Using aseptic technique, the needle is placed at right C2. Under direct fluoroscopic visualization, a Quincke tip needle was advanced to the midpoint of the waist of the articular pillar at the respective medial branch segment. The above-mentioned injectate was placed in a 1 mL aliquot proceeded by negative aspiration.? The needle was removed.? The procedure was completed at right C3, 4. Insertion site was covered.? Patient was taken to the postprocedural recovery area and monitored for an appropriate length of time before found suitable for discharge in the accompaniment of a responsible adult. Anesthesia: Local Surgeon: Adelfo Hansen Pathology: none sent Condition: stable Disposition: no change
== END 2024-01-10 08:48 | disposition home or self-care (01) ==
LOC: SURGOUT 07:37
PROVIDERS: PCP Family Medicine; Visit Provider Anesthesiology
DX: M47.812 Spondylosis without myelopathy or radiculopathy, cervical region (principal)
CPT/HCPCS: 64490; 64491; J0665

== ENCOUNTER 2024-01-26 12:24 | Outpatient (OUT) | payer MEDICARE, SELFPAY ==
--- OUTSIDE RECORDS SUMMARY | 2024-01-26 12:32 | XMS_ITS | CCD ---
Author Name Unknown Address [address] [place] [address] Organization [facility] Care Team Providers Care Manager Agricultural Name Role Phone KALIA GILL Unavailable Unavailable RENA HERNANDEZ Unavailable Unavailabl e KALIA GILL Unavailable Unavailable LENNY PEDRAZA Unavailable Unavailable AUDREY HORN Unavailable Unavailable AUDREY HORN Unavailable Unavailable LENNY PEDRAZA Unavailable Unavailable NASH, BIA F Primary Care Unavailable NASH, BIA F Primary Care Unavailable LALIT LEACH Attending Unavailable NASH, BIA F Referring Unavailable NASH, BIA Anny Primary Care Unavailable Nash GARCIA, Bia Anny Primary Care Provider Jacob Viveros Unavailable Unavailable Nash GARCIA, [facility] Primary Care Provider YOANNA DORSEY Attending Unavailable NASH, BIA F Referring Unavailable NASH, BIA F Primary Care Unavailable JOHN JOHNSON Referring Unavailable NASH, BIA F Primary Care Unavailable YOANNA DORSEY Referring Unavailable NASH, BIA Mccormick Primary Care Unavailable NASH, BIA F Attending Unavailable NASH, BIA F Attending Unavailable SANTO GARCIA Attending Unavailable ELMER PETTIT Attending Unavailable NSAH, BIA F Referring Unavailable SNYDERRIA Attending Unavailable [...] Attending Unavailable NASH, BIA F Referring Unavailable Giedraitis , Adelfo Arredondo Attending Unavailable Giedraitis , Andrius Arredondo Attending Unavailable Giedraitis , Andrius Vytsb Attending Unavailable Giedraitis , Andrius Vytautdayana Attending Unavailable Allergies Allergy Classification Reported Allergen(s) Allergy Type Date of Onset Reaction(s) Facility (6 sources) Adhesive agent; Translations: [ADHESIVE] Propensity to adverse reactions to drug (disorder) 11-04-20 16 [facility] Repository (12 sources) aspartame; Translations: [ASPARTAME] Drug Allergy 02-13-20 17 Other (See Comments), Unknown [facility] Repository (12 sources) clavulanic acid; Translations: [CLAVULANIC ACID] Drug Allergy 02-13-20 17 Rash [facility] Repository (1 source) egg white (chicken) allergenic extract; Translations: [EGG WHITE] Drug Allergy 08-14-20 11 AOF [facility] Repository (12 sources) lincomycin; Translations: [LINCOMYCIN] Drug Allergy 08-14-20 11 Anaphylaxis, [facility] Repository (6 sources) Lincosamides (Antibiotic); Translations: [LINCOSAMIDES] Propensity to adverse reactions to drug (disorder) 02-13-20 17 Anaphylaxis [facility] Repository (6 sources) oxaprozin; Translations: [OXAPROZIN] Drug Allergy 11-04-20 16 Rash [facility] Repository (12 sources) Penicillins; Translations: [PENICILLINS] Propensity to adverse reactions to drug (disorder) 11-04-20 16 [facility] Repository (6 sources) INFLUENZA VIRUS VACCINES; Translations: [INFLUENZA VIRUS VACCINES] Propensity to adverse reactions to drug (disorder) 02-13-20 17 Swelling [facility] Repository (12 sources) CLEMIZOLE; Translations: [CLEMIZOLE] Propensity to adverse reactions to drug (disorder) 02-13-20 17 Rash [facility] Repository (12 sources) AMOXICILLIN-POT CLAVULANATE; Translations: [AMOXICILLIN-POT CLAVULANATE] Propensity to adverse reactions to drug (disorder) 08-14-20 11 Rash [facility] Repository (5 sources) chicken allergenic extract; Translations: [POULTRY] Drug Allergy 03-02-20 23 [facility] Repository (5 sources) egg shell membrane; Translations: [EGGSHELL MEMBRANE] Propensity to adverse reactions to food (disorder) 11-04-20 16 [facility] Repository (11 sources) Indomethacin; Translations: [INDOMETHACIN] Drug Allergy 05-02-20 21 Hypotension, Unknown [facility] Repository (11 sources) Sulfamethoxazole / Trimethoprim; Translations: [SULFAMETHOXAZOLE-T RIMETHOPRIM] Drug Allergy 10-22-20 23 [facility] Repository (5 sources) Sulfonamides (Antibiotic); Translations: [SULFA (SULFONAMIDE ANTIBIOTICS)] Propensity to adverse reactions to drug (disorder) 11-11-20 22 [facility] Repository (11 sources) OTHER; Translations: [OTHER] Propensity to adverse reactions (disorder) 02-13-20 17 Other (See Comments), Swelling [facility] Repository (6 sources) Influenza Vaccines Drug Allergy 06-04-20 23 [facility] (6 sources) Lincomycin Drug Allergy 12-01-19 22 Unknown [facility] (6 sources) Sulfonamides (Antibiotic) Drug Intolerance 11-11-20 22 [facility] (6 sources) Eggs Or Egg-Derived Products Drug Allergy 08-14-20 11 Swelling, Unknown [facility] (6 sources) Poultry Meal Propensity to adverse reactions 03-02-20 23 [facility] (6 sources) Wound Dressing Adhesive Drug Allergy 06-04-20 23 [facility] Medications Current Medications Medication Drug Class(es) Dates [...] a week. 20 tablet 2 04/23/2023 Active [id number] 200 actuat albuterol 0.09 mg/actuat metered dose [...] mg oral capsule (6 sources) Lactobacillus (F loralfn Women) capsule as directed Orally 0 Active levothyroxine sodium 0.15 mg oral tablet (8 sources) l-Th yrox ine Star t: 01-21 take 1 [...] 1 06-04-2023 Chronic Diabetes mellitus without complication (3 sources) Prediabetes; Translations: [Prediabetes] Onset: 4 01-07-2024 Episodic Disorders of lipid metabolism (11 sources) Hyperlipidemia; Translations: [Other hyperlipidemia] Onset: 5 10-26-2017 Chronic Esophageal disorders (9 sources) Gastro-esophageal reflux disease without esophagitis; Translations: [Gastroesophageal reflux disease without esophagitis] Onset: 1 09-15-2021 Chronic Essential hypertension (11 sources) Essential hypertension; Translations: [Essential (primary) hypertension] [...] Onset: 1 06-04-2023 Chronic Osteoporosis (13 sources) Senile osteoporosis; Translations: [Age-related osteoporosis without current pathological fracture] Onset: 0 Resolved: 3 06-04-2023 Chronic Other [...] unspecified] 01-07-2024 Chronic Other nervous system disorders (2 sources) Polyneuropathy, unspecified; Translations: [Polyneuropathy, unspecified] Onset: 4 Chronic Other nervous system disorders (3 sources) Impairment of balance; Translations: [Other abnormalities of gait and mobility] Onset: 9 06-12-2019 Episodic Other screening for suspected conditions (not mental disorders or infectious disease) (3 sources) Abnormal level of blood mineral; Translations: [Abnormal level of blood mineral] Onset: 4 01-07-2024 Episodic Spondylosis; intervertebral disc disorders; other back problems (20 sources) Prolapsed lumbar intervertebral disc; Translations: [Other intervertebral disc displacement, lumbar region] Onset: 1 Resolved: 3 01-07-2017 Chronic Thyroid disorders (8 sources) Acquired hypothyroidism; Translations: [Hypothyroidism, unspecified] Onset: 03-02-2023 Chronic Past or Other Problems Problem [...] 11-06-2019 11-06-2019 Episodic Other nervous system disorders (2 sources) Other abnormalities of gait and mobility; Translations: [...] Test Name Value Interpretation Reference Range Facility CBC AND AUTO DIFFon 01-11-20 ABSOLUTE BASOPHIL 0.1 X10E9/L Normal 0.0-0.2 [facility] Comment on above: Performed By: #### 1 3965-9, CBCA, FEPR, THYR, 2276-4, 2132-07, 2284-06, IMEL, SPE #### [facility] ([id number]) [address] [place] [address], [address] [place] [address] #### MTHFRS #### [facility] ([id number]) [address] [place] [address], [place] [address] ABSOLUTE NEUTROPHIL 2.4 X10E9/L Normal 1.5-6.6 [facility] Comment on above: Performed By: #### 1 3965-9, CBCA, FEPR, THYR, 6-4, 9, 8, IMEL, SPE #### [facility] ([id number]) [address] [facility], [address] [place] [address] #### MTHFRS #### [facility] ([id number]) [address] [place] [address] Basophils/100 WBC (Bld) 1.4 % Normal [facility] Comment on above: Performed By: #### 1 3965-9, CBCA, FEPR, THYR, 2276-4, 2131-9, 4-8, IMEL, SPE #### [facility] ([id number]) [address] [facility], [address] [place] [address] #### MTHFRS #### [facility] ([id number]) [address] [place] [address] Eosinophils (Bld) [#/Vol] 0.1 10*3/uL Normal 0.0-0.4 [facility] Comment on above: Performed By: #### 1 3965-9, CBCA, FEPR, THYR, 6-4, 2131-9, 4-8, IMEL, SPE #### [facility] ([id number]) [address] [facility], [address] [place] [address] #### MTHFRS #### [facility] ([id number]) [address] [place] [address] Eosinophils/100 WBC (Bld) 2.8 % Normal [facility] Comment on above: Performed By: #### 1 3965-9, CBCA, FEPR, THYR, 6-4, 9, 2283-8, IMEL, SPE #### [facility] ([id number]) [address] [facility], [address] [place] [address] #### MTHFRS #### [facility] ([id number]) [address] [place] [address] Erythrocyte distribution width (RBC) [Ratio] 15.5 % High 11.5-15.0 [facility] Comment on above: Performed By: #### 1 3965-9, CBCA, FEPR, THYR, 6-, 2132-07, 2284-06, IMEL, SPE #### [facility] ([id number]) [address], [address] [place] [address] #### MTHFRS #### [facility] ([id number]) [address] [place] [address] Hematocrit (Bld) [Volume fraction] 38.4 % Normal 35-47 [facility] Comment on above: Performed By: #### 1 3965-9, CBCA, FEPR, THYR, 2276-02, 2132-07, 2284-06, IMEL, SPE #### [facility] ([id number]) [address], [address] [place] [address] #### MTHFRS #### [facility] ([id number]) [address] [place] [address] Hemoglobin (Bld) [Mass/Vol] 12.5 g/dL Normal 11.7-15.5 [facility] Comment on above: Performed By: #### 1 3965-9, CBCA, FEPR, THYR, 2276-02, 2132-07, 2284-06, IMEL, SPE #### [facility] ([id number]) [address], [address] [place] [address] #### MTHFRS #### [facility] ([id number]) [address] [place] [address] Lymphocytes (Bld) [#/Vol] 1.7 10*3/uL Normal 1.0-3.5 [facility] Comment on above: Performed By: #### 1 3965-9, CBCA, FEPR, THYR, 2275-, 2132-07, 2284-8, IMEL, SPE #### [facility] ([id number]) [address], [address] [place] [address] #### MTHFRS #### [facility] ([id number]) [address] [place] [address] Lymphocytes/100 WBC (Bld) 35.8 % Normal [facility] Comment on above: Performed By: #### 1 3965-9, CBCA, FEPR, THYR, 6-4, 2131-9, 2283-8, IMEL, SPE #### [facility] ([id number]) [address], [address] [place] [address] #### MTHFRS #### [facility] ([id number]) [address] [place] [address] MCH (RBC) [Entitic mass] 28.5 pg Normal 27-34 [facility] Comment on above: Performed By: #### 1 3965-9, CBCA, FEPR, THYR, 6-4, 2131-9, 8, IMEL, SPE #### [facility] ([id number]) [address], [address] [place] [address] #### MTHFRS #### [facility] ([id number]) [address] [place] [address] MCHC (RBC) [Mass/Vol] 32.7 g/dL Normal 32-36 [facility] Comment on above: Performed By: #### 1 3965-9, CBCA, FEPR, THYR, 6-4, 2131-9, 8, IMEL, SPE #### [facility] ([id number]) [address], [address] [place] [address] #### MTHFRS #### [facility] ([id number]) [address] [place] [address] MCV (RBC) [Entitic vol] 87 fL Normal 80-100 [facility] Comment on above: Performed By: #### 1 3965-9, CBCA, FEPR, THYR, 6-4, 9, 2283-8, IMEL, SPE #### [facility] ([id number]) [address], [address] [place] [address] #### MTHFRS #### [facility] ([id number]) [address] [place] [address] Monocytes (Bld) [#/Vol] 0.5 10*3/uL Normal 0-0.9 [facility] Comment on above: Performed By: #### 1 3965-9, CBCA, FEPR, THYR, 6-4, 2132-07, 2284-06, IMEL, SPE #### [facility] ([id number]) [address], [address] [place] [address] #### MTHFRS #### [facility] ([id number]) [address] [place] [address] Monocytes/100 WBC (Bld) 10.0 % Normal [facility] Comment on above: Performed By: #### 1 3965-9, CBCA, FEPR, THYR, 2275-, 2132-07, 2284-06, IMEL, SPE #### [facility] ([id number]) [address], [address] [place] [address] #### MTHFRS #### [facility] ([id number]) [address] [place] [address] Neutrophils/100 WBC (Bld) 50.0 % Normal [facility] Comment on above: Performed By: #### 1 3965-9, CBCA, FEPR, THYR, 6-, 2132-07, 2284-06, IMEL, SPE #### [facility] ([id number]) [address], [address] [place] [address] #### MTHFRS #### [facility] ([id number]) [address] [place] [address] Platelet mean volume (Bld) [Entitic vol] 9.6 fL Normal 7-12 [facility] Comment on above: Performed By: #### 1 3965-9, CBCA, FEPR, THYR, 2276-4, 2131-9, 2284-8, IMEL, SPE #### [facility] ([id number]) [address], [address] [place] [address] #### MTHFRS #### [facility] ([id number]) [address] [place] [address] Platelets (Bld) [#/Vol] 194 10*3/uL Normal 150-450 [facility] Comment on above: Performed By: #### 1 3965-9, CBCA, FEPR, THYR, 2276-4, 2131-9, 2283-8, IMEL, SPE #### [facility] ([id number]) [address], [address] [place] [address] #### MTHFRS #### [facility] ([id number]) [address] [place] [address] RBC COUNT 4.41 X10E12/L Normal 3.80-5.20 [facility] Comment on above: Performed By: #### 1 3965-9, CBCA, FEPR, THYR, 2276-4, 2131-9, 2284-8, IMEL, SPE #### [facility] ([id number]) [address], [address] [place] [address] #### MTHFRS #### [facility] ([id number]) [address] [place] [address] WBC (Bld) [#/Vol] 4.9 10*3/uL Normal 4.0-11.0 [facility] Comment on above: Performed By: #### 1 3965-9, CBCA, FEPR, THYR, 2276-4, 2132-9, 2284-8, IMEL, SPE #### [facility] ([id number]) [address] [place] [address], [address] [place] [address] #### MTHFRS #### [facility] ([id number]) [address] [place] [address] Clinical Pathologyon 024 Clinical Pathology Normal [facility] Comment on above: Result Comment: [email or web address] [address] [place] [address] Clinical Pathology Report Patient Name:ANGELA RUTH:1945 (Age: 78)Gender:FTaken:4Reported:01/14/2024hysician(s):MARCE Rayo ([phone])Copy To: Rec. #:[id number]: #[id number] Final Pathologic Diagnosis No monoclonal protein identified. Report Electronically Signed Out sb/01/12/2024duncan Alamo MD Interpretation [place] [address], License number: [id number]. Clinical History G25.0, R26.89, G62.9, R79.0. SERUM IEP SAMPLE NUMBER: [id number] IMMUNOGLOBULIN LEVELS (mg/dL): IgG : 652 IgA : 225 IgM : 64 Free Sylvester: 3.45 Free Lambda: 2.10 Free Sylvester/Lambda ratio: 1.64 Specimen(s) Received Serum IEP Fee Codes(s): 1; 06684-83 FERRITINon 01-11-2024 Ferritin [Mass/Vol] 47 ng/mL Normal 11-307 [facility] Comment on above: Performed By: #### 1 3965-9, CBCA, FEPR, THYR, 2276-4, 2-9, 2284-8, IMEL, SPE #### [facility] ([id number]) [address], [address] [place] [address] #### MTHFRS #### [facility] ([id number]) [address] [place] [address] Folate [Mass/Vol]on 01-11-20 FOLIC ACID >25.0 Normal >5.8 [facility] Comment on above: Result Comment: NEW REFERENCE RANGE Performed By: #### 1 3965-9, CBCA, FEPR, THYR, 2276-4, 2131-9, 2284-8, IMEL, SPE #### [facility] ([id number]) [address] [facility], [address] [place] [address] #### MTHFRS #### [facility] ([id number]) [address] [place] [address] HGB A1C (GLYCO-HGB)on 2023 Glucose [Mass/Vol] 108 mg/dL Normal [facility] Comment on above: Performed By: #### 1 3965-9, CBCA, FEPR, THYR, 6-4, 2131-9, 2284-8, IMEL, SPE #### [facility] ([id number]) [address], [address] [place] [address] #### MTHFRS #### [facility] ([id number]) [address] [place] [address] HbA1c (Bld) [Mass fraction] 5.4 % Normal 4.4-5.6 [facility] Comment on above: Result Comment: NOTE ADA Guidelines Result HgbA1c Normal : less than 5.7 % Prediabetes : 5.7 % to 6.4 % Diabetes : > 6.4 % Use with caution in patients with abnormal hemoglobin variants as the half-life of red blood cells and in vivo glycation rates are affected. Performed By: #### 1 3965-9, CBCA, FEPR, THYR, 2276-4, 2131-9, 4-8, IMEL, SPE #### [facility] ([id number]) [address] [place] [address], [address] [address] #### MTHFRS #### [facility] ([id number]) [address] [place] [address] Homocysteine [Moles/Vol]on 0 01-11-2024 HOMOCYSTEINE 14.23 mcmol/L Normal 3.36-20.44 [facility] Comment on above: Performed By: #### 1 3965-9, CBCA, FEPR, THYR, 6-4, 2132-07, 2284-06, IMEL, SPE #### [facility] ([id number]) [address] [place] [address] #### MTHFRS #### [facility] ([id number]) [address] [place] [address] IMMUNOELECTROPHORESIS FOR TH ERAPY MONITORINGon 01-11-2024 FREE IRASEMA/LAMBD RATIO 1.64 Normal 0.26-1.65 [facility] Comment on above: Performed By: #### 1 3965-9, CBCA, FEPR, THYR, 2276-4, 9, 8, IMEL, SPE #### [facility] ([id number]) [address] [place] [address] #### MTHFRS #### [facility] ([id number]) [address] [place] [address] FREE KAPPA LT CHAINS 3.45 mg/dL High 0.33-1.94 [facility] Comment on above: Performed By: #### 1 3965-9, CBCA, FEPR, THYR, 2276-4, 2131-9, 2284-8, IMEL, SPE #### [facility] ([id number]) [address] [facility], [address] [place] [address] #### MTHFRS #### [facility] ([id number]) [address] [place] [address] FREE LAMBDA LT CHAINS 2.10 mg/dL Normal 0.57-2.63 [facility] Comment on above: Performed By: #### 1 3965-9, CBCA, FEPR, THYR, 6-4, 9, 4-8, IMEL, SPE #### [facility] ([id number]) [address] [facility], [address] [place] [address] #### MTHFRS #### [facility] ([id number]) [address] [place] [address] IgA [Mass/Vol] 225 mg/dL Normal 68-378 [facility] Comment on above: Performed By: #### 1 3965-9, CBCA, FEPR, THYR, 6-4, 2131-9, 4-8, IMEL, SPE #### [facility] ([id number]) [address], [address] [place] [address] #### MTHFRS #### [facility] ([id number]) [address] [place] [address] IgG [Mass/Vol] 652 mg/dL Normal 635-1741 [facility] Comment on above: Performed By: #### 1 3965-9, CBCA, FEPR, THYR, 2276-4, 2-9, 2284-8, IMEL, SPE #### [facility] ([id number]) [address], [address] [place] [address] #### MTHFRS #### [facility] ([id number]) [address] [place] [address] IgM [Mass/Vol] 64 mg/dL Normal 45-281 [facility] Comment on above: Performed By: #### 1 3965-9, CBCA, FEPR, THYR, 2276-4, 2-9, 2284-8, IMEL, SPE #### [facility] ([id number]) [address] [facility], [address] [place] [address] #### MTHFRS #### [facility] ([id number]) [address] [place] [address] IMMUNE PROFILE INTERP SEE SEPARATE REPORT Normal [facility] Comment on above: Performed By: #### 1 3965-9, CBCA, FEPR, THYR, 2276-4, 2-9, 2284-8, IMEL, SPE #### [facility] ([id number]) [address] [facility], [address] [place] [address] #### MTHFRS #### [facility] ([id number]) [address] [place] [address] IRON PROFILEon 01-11-2024 Iron [Mass/Vol] 100 ug/dL Normal 50-170 [facility] Comment on above: Performed By: #### 1 3965-9, CBCA, FEPR, THYR, 2276-4, 2-9, 2284-8, IMEL, SPE #### [facility] ([id number]) [address] [place] [address] [address] [place] [address] #### MTHFRS #### [facility] ([id number]) [address] [place] [address] IRON BINDING 438 ug/dL High 250-425 [facility] Comment on above: Performed By: #### 1 3965-9, CBCA, FEPR, THYR, 2276-4, 2132-9, 2284-8, IMEL, SPE #### [facility] ([id number]) [address] [facility], [address] [place] [address] #### MTHFRS #### [facility] ([id number]) [address] [place] [address] IRON SATURATION 23 % SATURATION Normal 15-50 [facility] Comment on above: Performed By: #### 1 3965-9, CBCA, FEPR, THYR, 2276-4, 2-9, 2284-8, IMEL, SPE #### [facility] ([id number]) [address] [facility], [address] [place] [address] #### MTHFRS #### [facility] ([id number]) [address] [place] [address] MTHFRon 01-11-2024 MTHFR INTERPRETATION SEE NOTE Normal [facility] Comment on above: Result Comment: NOTE Indication for testing: Determine genetic contribution to hyperhomocysteinemia. Negative: Neither of the common MTHFR gene variants tested, c.665C>T (previously designated C677T) and c.1286A>C (previously designated E7036S), were detected. Other causes of elevated homocysteine levels were not evaluated. This result has been reviewed and approved by Paola Cueto M.D., Ph.D. Background Information: Methylenetetrahydrofolate Reductase (MTHFR) 2 Variants Characteristics: Variants in the MTHFR gene may reduce enzyme activity contributing to hyperhomocysteinemia. Although hyperhomocysteinemia was previously reported to be a risk factor for many conditions, especially venous thrombosis and cardiovascular disease, recent meta-analysis casts doubt on whether lifelong moderate homocysteine elevation has an effect on cardiovascular disease. The [employer] Practice Guidelines indicate that individuals with elevated homocysteine and two copies of the c.665C>T variant have an odds ratio of 1.27 for venous thromboembolism. Thus, they recommend MTHFR genotyping not be ordered as part of a routine evaluation for recurrent loss or thromobophilia due to questionable clinical significance. Incidence: The allele frequency of the c.665C>T variant is 0.35 in Caucasians, 0.5 in Hispanics, and 0.12 in Americans. Inheritance: Autosomal recessive; two copies of the c.665C>T variant may be a contributing factor to hyperhomocysteinemia. Variants Tested: c.665C>T(p.Mic166Kzp) and c.1286A>C(p.Vzj680Pqe). (legacy names C677T and [id number], respectively). Clinical Sensitivity: Undefined; hyperhomocysteinemia is caused by genetic, physiologic and environmental factors. MTHFR variants are only one contributing factor. Methodology: Polymerase chain reaction (PCR) and fluorescence monitoring. Analytical Sensitivity and Specificity: 99 percent. Limitations: Only two MTHFR gene variants (c.665C>T and c.1286A>C) are tested. Diagnostic errors can occur due to rare sequence variations. This test was developed and its performance characteristics determined by [facility]. It has not been cleared or approved by the [place] Food and Drug Administration. This test was performed in a CLIA certified laboratory and is intended for clinical purposes. Counseling and informed consent are recommended for genetic testing. Consent forms are available online. Performed By: [facility] [address] [place] [id number] Endoscopic Technician: Jacob Sparks MD, PhD [place] Number: [id number] Performed By: #### 1 3965-9, CBCA, FEPR, THYR, 2276-4, 2132-07, 2284-06, JOSHUA GONZALEZ #### [facility] ([id number]) [address] [place] [address], [address] [place] [address] #### MTHFRS #### [facility] ([id number]) [address] [place] [address], [place] [address] MTHFR MUT [id number] Negative Normal [facility] [facility] Comment on above: Performed By: #### 1 3965-9, CBCA, FEPR, THYR, 2276-4, 2132-07, 2284-06, CARLOS SPE #### [facility] ([id number]) [address] [place] [address], [address] [place] [address] #### MTHFRS #### [facility] ([id number]) [address] [place] [address] MTHFR MUT C665CT Negative Normal [facility] Comment on above: Performed By: #### 1 3965-9, CBCA, FEPR, THYR, 2276-4, 2-9, 2284-8, IMEL, SPE #### [facility] ([id number]) [address] [place] [address], [address] [place] [address] #### MTHFRS #### [facility] ([id number]) [address] [place] [address]703 MTHFR PCR SPECIMEN WHOLE BLOOD Normal [facility] Comment on above: Performed By: #### 1 3965-9, CBCA, FEPR, THYR, 6-4, 2131-9, 4-8, IMEL, SPE #### [facility] ([id number]) [address] [place] [address], [address] [place] [address] #### MTHFRS #### [facility] ([id number]) [address] [place] [address]647 Methylmalonate [Moles/Vol]on 01-11-2024 MMA QN 0.14 umol/L Normal <=0.40 [facility] Comment on above: Result Comment: NOTE This test was developed and its performance characteristics determined by [facility] [place] ([facility]). It has not been cleared or approved by the FDA. [facility] is regulated under CLIA as qualified to perform high-complexity testing. This test is used for clinical purposes. It should not be regarded as investigational or for research. Test Performed By: [facility] [address] [place] [address] Endoscopic Technician: Berry Larsen III, M.D. CLIA #[id number] Performed By: #### 1 3965-9, CBCA, FEPR, THYR, 2276-4, 2-9, 2284-8, IMEL, SPE #### [facility] ([id number]) [address], [address] [place] [address] #### MTHFRS #### [facility] ([id number]) [address] [place] [address]2865 SERUM PROTEIN ELECTROPHORESI Son 01-11-2024 Albumin [Mass/Vol] 4.0 g/dL Normal 3.4-5.3 [facility] Comment on above: Performed By: #### 1 3965-9, CBCA, FEPR, THYR, 6-4, 2131-9, 4-8, IMEL, SPE #### [facility] ([id number]) [address], [address] [place] [address] #### MTHFRS #### [facility] ([id number]) [address] [place] [address] ALPHA 1 GLOBULIN 0.3 g/dL Normal 0.1-0.4 [facility] Comment on above: Performed By: #### 1 3965-9, CBCA, FEPR, THYR, 2276-4, 2131-9, 4-8, IMEL, SPE #### [facility] ([id number]) [address], [address] [place] [address] #### MTHFRS #### [facility] ([id number]) [address] [place] [address]643 ALPHA 2 GLOBULIN 0.8 g/dL Normal 0.4-1.1 [facility] Comment on above: Performed By: #### 1 3965-9, CBCA, FEPR, THYR, 2276-4, 2-9, 2284-8, IMEL, SPE #### [facility] ([id number]) [address], [address] [place] [address] #### MTHFRS #### [facility] ([id number]) [address] [place] [address]473 BETA GLOBULIN 0.8 g/dL Normal 0.5-1.2 [facility] Comment on above: Performed By: #### 1 3965-9, CBCA, FEPR, THYR, 2276-4, 2132-9, 2284-8, IMEL, SPE #### [facility] ([id number]) [address], [address] [place] [address] #### MTHFRS #### [facility] ([id number]) [address] [place] [address] GAMMA GLOBULIN 0.7 g/dL Normal 0.5-1.6 [facility] Comment on above: Performed By: #### 1 3965-9, CBCA, FEPR, THYR, 2276-4, 2-9, 2284-8, IMEL, SPE #### [facility] ([id number]) [address] [place] [address] #### MTHFRS #### [facility] ([id number]) [address] [place] [address]1245 PROT. ELECTROPHORESIS INTERP Unremarkable protein distribution, no monoclonal bands. Normal [facility] Comment on above: Performed By: #### 1 3965-9, CBCA, FEPR, THYR, 2276-4, 2131-9, 4-8, IMEL, SPE #### [facility] ([id number]) [address], [address] [place] [address] #### MTHFRS #### [facility] ([id number]) [address] [place] [address]682 Protein [Mass/Vol] 6.5 g/dL Normal 6.0-8.0 [facility] Comment on above: Performed By: #### 1 3965-9, CBCA, FEPR, THYR, 2276-4, 2132-9, 2284-8, IMEL, SPE #### [facility] ([id number]) [address], [address] [place] [address] #### MTHFRS #### [facility] ([id number]) [address] [place] [address] THYROID PROFILEon 01-11-2024 Free T4 [Mass/Vol] 1.09 ng/dL Normal 0.61-1.60 [facility] Comment on above: Performed By: #### 1 3965-9, CBCA, FEPR, THYR, 2276-4, 2131-9, 4-8, IMEL, SPE #### [facility] ([id number]) [address], [address] [place] [address] #### MTHFRS #### [facility] ([id number]) [address] [place] [address]77 TSH 0.60 uIU/mL Normal 0.49-4.67 [facility] Comment on above: Performed By: #### 1 3965-9, CBCA, FEPR, THYR, 2276-4, 2-9, 4-8, IMEL, SPE #### [facility] ([id number]) [address], [address] [place] [address] #### MTHFRS #### [facility] ([id number]) [address] [place] [address] 91087 VITAMIN B12on 01-11-2024 Cobalamin (Vitamin B12) [Mass/Vol] 407 pg/mL Normal 180-914 [facility] Comment on above: Performed By: #### 1 3965-9, CBCA, FEPR, THYR, 2276-4, 2132-9, 2284-8, IMEL, SPE #### [facility] ([id number]) [address], [address] [place] [address] #### MTHFRS #### [facility] ([id number]) [address] [facility], [place] [address] DEXA SCAN CENTRAL SKELETALon 12-06-2023 DEXA SCAN [...] Ann MD on 12/06/2023 2:10 AM Normal [facility] CT Abdomen/Pelvis w + w/o Co [...] by Felix Dominguez on 12/07/2022 1159 Normal [facility] XR HAND LEFT (MIN 3 VIEWS)on 11-07-2022 [...] Matt Cowart MD 11/07/22 Final result Normal [facility] XR HAND LEFT (MIN 3 [...] Matt Cowart MD 11/07/22 Final result Normal [facility] XR Chest 2 Views*on 09-10-20 XR Chest 2 Views* HISTORY: SOB, sterna l pain, bronchitis x 1 week FINDINGS: No [...] by Bartolome Monson on 09/10/2022 1507 Normal [facility] Complete Blood Count with Au to Diffon 12-11-2021 Basophils (Bld) [#/Vol] 0.07 10*3/uL Normal 0.00-0.20 [facility] Comment on above: Performed By: #### C LG, CBCAD #### [facility] [address], [place] [id number] Basophils/100 WBC (Bld) 0.9 % Normal [facility] Comment on above: Performed By: #### C LG, CBCAD #### [facility] [address], [place] [id number] Eosinophils (Bld) [#/Vol] 0.17 10*3/uL Normal 0.02-0.50 [facility] Comment on above: Performed By: #### C LG, CBCAD #### [facility] [address], [place] [id number] Eosinophils/100 WBC (Bld) 2.3 % Normal [facility] Comment on above: Performed By: #### C LG, CBCAD #### [facility] [address], [place] [id number] Erythrocyte distribution width (RBC) [Ratio] 16.4 % High 11.0-15.0 [facility] Comment on above: Performed By: #### C LG, CBCAD #### [facility] [address], [place] [id number] Hematocrit (Bld) [Volume fraction] 42.9 % Normal 35.0-47.0 [facility] Comment on above: Performed By: #### C LG, CBCAD #### [facility] [address], [place] [id number] Hemoglobin (Bld) [Mass/Vol] 13.5 g/dL Normal 11.6-15.5 [facility] Comment on above: Performed By: #### C MP, CBCAD #### [facility] [address], [place] [id number] Lymphocytes (Bld) [#/Vol] 2.7 10*3/uL Normal 0.9-3.9 [facility] Comment on above: Performed By: #### C MP, CBCAD #### [facility] [address], [place] [id number] Lymphocytes/100 WBC (Bld) 36.1 % Normal [facility] Comment on above: Performed By: #### C MP, CBCAD #### [facility] [address], [place] [id number] MCH (RBC) [Entitic mass] 27.7 pg Normal 27.0-33.0 [facility] Comment on above: Performed By: #### C MP, CBCAD #### [facility] [address], [place] [id number] MCHC (RBC) [Mass/Vol] 31.5 g/dL Low 32.0-36.0 [facility] Comment on above: Performed By: #### C MP, CBCAD #### [facility] [address], [place] [id number] MCV (RBC) [Entitic vol] 88 fL Normal 80-100 [facility] Comment on above: Performed By: #### C MP, CBCAD #### [facility] [address], [place] [id number] Monocytes (Bld) [#/Vol] 0.8 10*3/uL Normal 0.2-0.9 [facility] Comment on above: Performed By: #### C MP, CBCAD #### [facility] [address], [place] [id number] Monocytes/100 WBC (Bld) 10.8 % Normal [facility] Comment on above: Performed By: #### C MP, CBCAD #### [facility] [address], [place] [id number] Neutrophils (Bld) [#/Vol] 3.7 10*3/uL Normal 1.5-7.8 [facility] Comment on above: Performed By: #### C MP, CBCAD #### [facility] [address], [place] [id number] Neutrophils/100 WBC (Bld) 49.2 % Normal [facility] Comment on above: Performed By: #### C MP, CBCAD #### [facility] [address], [place] [id number] Platelet mean volume (Bld) [Entitic vol] 11.00 fL Normal 7.50-12.50 [facility] Comment on above: Performed By: #### C MP, CBCAD #### [facility] [address], [place] [id number] Platelets (Bld) [#/Vol] 246 10*3/uL Normal 140-400 [facility] Comment on above: Performed By: #### C MP, CBCAD #### [facility] [address], [place] [id number] RBC (Bld) [#/Vol] 4.88 10*6/uL Normal 3.90-5.20 [facility] Comment on above: Performed By: #### C MP, CBCAD #### [facility] [address], [place] [id number] RDW-SD 53.1 fL High 37.0-50.0 [facility] Comment on above: Performed By: #### C MP, CBCAD #### [facility] [address], [place] [id number] WBC (Bld) [#/Vol] 7.5 10*3/uL Normal 3.8-11.0 [facility] Comment on above: Performed By: #### C MP, CBCAD #### [facility] [address], [place] [id number] Comprehensive Metabolic P[facility] 12-11-2021 Albumin [Mass/Vol] 4.2 g/dL Normal 3.6-5.1 [facility] Comment on above: Performed By: #### C MP, CBCAD #### [facility] [address], [place] [id number] Albumin/Globulin [Mass ratio] 1.7 {ratio} Normal 1.0-2.5 [facility] Comment on above: Performed By: #### C MP, CBCAD #### [facility] [address], [place] [id number] ALP [Catalytic activity/Vol] 71 U/L Normal 35-119 [facility] Comment on above: Performed By: #### C MP, CBCAD #### [facility] [address], [place] [id number] ALT [Catalytic activity/Vol] 12 U/L Normal 6-33 [facility] Comment on above: Result Comment: 10/22 Female reference range changed. Performed By: #### C MP, CBCAD #### [facility] [address], [place] [id number] Anion gap [Moles/Vol] 18 mmol/L Normal 12-20 [facility] Comment on above: Result Comment: Effe ctive 11/27/2019 reference range changed. Performed By: #### C MP, CBCAD #### [facility] [address], [place] [id number] AST [Catalytic activity/Vol] 15 U/L Normal 9-34 [facility] Comment on above: Performed By: #### C MP, CBCAD #### [facility] [address], [place] [id number] Bilirubin [Mass/Vol] 0.33 mg/dL Normal 0.30-1.20 [facility] Comment on above: Performed By: #### C MP, CBCAD #### [facility] [address], [place] [id number] BUN/CREA 35 Ratio High 6-22 [facility] Comment on above: Performed By: #### C MP, CBCAD #### [facility] [address], [place] [id number] Calcium [Mass/Vol] 9.4 mg/dL Normal 8.6-10.2 [facility] Comment on above: Performed By: #### C MP, CBCAD #### [facility] [address], [place] [id number] Chloride [Moles/Vol] 106 mmol/L Normal 98-107 [facility] Comment on above: Performed By: #### C MP, CBCAD #### [facility] [address], [place] [id number] CO2 [Moles/Vol] 24 mmol/L Normal 20-31 [facility] Comment on above: Performed By: #### C MP, CBCAD #### [facility] [address], [place] [id number] Creatinine [Mass/Vol] 0.9 mg/dL Normal 0.6-1.4 [facility] Comment on above: Performed By: #### C MP, CBCAD #### [facility] [address], [place] [id number] eGFRAA 70 mL/min/1.73m2 Normal >60 [facility] Comment on above: Performed By: #### C MP, CBCAD #### [facility] [address], [place] [id number] eGFRNAA 58 mL/min/1.73m2 Low >60 [facility] Comment on above: Performed By: #### C MP, CBCAD #### [facility] [address], [place] [id number] Globulin (S) [Mass/Vol] 2.5 g/dL Normal 1.9-3.7 [facility] Comment on above: Performed By: #### C MP, CBCAD #### [facility] [address], [place] [id number] Glucose [Mass/Vol] 84 mg/dL Normal 65-99 [facility] Comment on above: Result Comment: For FASTING Glucose --- ADA reference ranges: Normal 65-99 mg/dl Prediabetes 100-125 Diabetes >/= 126 Performed By: #### C MP, CBCAD #### [facility] [address], [place] [id number] Potassium [Moles/Vol] 4.3 mmol/L Normal 3.5-5.5 [facility] Comment on above: Performed By: #### C MP, CBCAD #### [facility] [address], [place] [id number] Protein [Mass/Vol] 6.7 g/dL Normal 6.1-8.1 [facility] [place] [facility] Comment on above: Performed By: #### C MP, CBCAD #### [facility] [address], [place] [id number] Sodium [Moles/Vol] 143 mmol/L Normal 135-146 [facility] Comment on above: Performed By: #### C MP, CBCAD #### [facility] [address], [place] [id number] Urea nitrogen [Mass/Vol] 33 mg/dL High 7-25 [facility] Comment on above: Performed By: #### C MP, CBCAD #### [facility] [address], [place] [id number] Calciumon 06-20-2019 Calcium [Mass/Vol] 10.0 mg/dL Normal 8.4-10.2 [facility] Comment on above: Performed By: #### 1 030, 1035, 4500, 4510, 4520, 4581 #### [facility] Unless Otherwise Noted [address] [address] / COLA #4724/CLIA # [id number] Creatinineon 06-20-2019 Creatinine [Mass/Vol] 0.9 mg/dL Normal 0.5-1.0 [facility] Comment on above: Performed By: #### 1 030, 1035, 4500, 4510, 4520, 4581 #### [facility] Unless Otherwise Noted [address] [facility] [address] [place] [address] / COLA #4724/CLIA # [id number] Creatinine [Mass/Vol] 74.8 Kg Normal [facility] Comment on above: Performed By: #### 1 030, 1035, 4500, 4510, 4520, 4581 #### [facility] Unless Otherwise Noted [address] [address] / COLA #4724/CLIA # [id number] Creatinine [Mass/Vol] 64.8 ml/m1.73 Normal [facility] Comment on above: Performed By: #### 1 030, 1035, 4500, 4510, 4520, 4581 #### [facility] Unless Otherwise Noted [address] [address] / COLA #4724/CLIA # [id number] Creatinine [Mass/Vol] 65.1 ml/m1.73 Normal [facility] Comment on above: Performed By: #### 1 030, 1035, 4500, 4510, 4520, 4581 #### [facility] Unless Otherwise Noted [address] [address] / COLA #4724/CLIA # [id number] Creatinine [Mass/Vol] 78.7 ml/m1.73 Normal [facility] Comment on above: Performed By: #### 1 030, 1035, 4500, 4510, 4520, 4581 #### [facility] Unless Otherwise Noted [address] [address] / COLA #4724/CLIA # [id number] FT3on 06-20-2019 FT3 2.80 pg/mL Normal 2.45-5.93 [facility] Comment on above: Performed By: #### 1 030, 1035, 4500, 4510, 4520, 4581 #### [facility] Unless Otherwise Noted [address] [address] / COLA #4724/CLIA # [id number] FT4on 06-20-2019 Free T4 [Mass/Vol] 1.93 ng/dL Normal 0.78-2.44 [facility] Comment on above: Performed By: #### 1 030, 1035, 4500, 4510, 4520, 4581 #### [facility] Unless Otherwise Noted [address] [address] / COLA #4724/CLIA # [id number] TSHon 06-20-2019 TSH Qn 0.57 uIU/ml Normal 0.47-4.68 [facility] Comment on above: Performed By: #### 1 030, 1035, 4500, 4510, 4520, 4581 #### [facility] Unless Otherwise Noted [address] [address] / COLA #4724/CLIA # [id number] VITAMIN D 25on 06-20-2019 VITAMIN D 25 51.5 ng/ml Normal 30.0-100.0 [facility] Comment on above: Result Comment: Defi cient <20 Insufficient 20-<30 Sufficient 30-100 Potiential Toxicity >100 Performed By: #### 1 030, 1035, 4500, 4510, 4520, 4581 #### [facility] Unless Otherwise Noted [address] [address] / COLA #4724/CLIA # [id number] Basic Metabolic Profon 05-06 (cont.) Normal [facility] Comment on above: Result Comment: Aver age GFR for 70 or more years old: 75 mL/min/1.73sq mChronic Kidney Disease: <60 mL/min/1.73sq mKidney failure: <15 mL/min/1.73sq meGFR calculated using average adult body mass. Additional eGFR calculator available at:http://www.globalrph.com/multiple_crcl_2012.htmPerformed at [facility] [address] [place] [address] Performed By: #### C DP, BMP ####[facility] [address] Anion gap 14 mmol/L Normal 9-17 [facility] Comment on above: Performed By: #### C DP, BMP ####[facility] [place] [address] Calcium 9.6 mg/dL Normal 8.6-10.4 [facility] Comment on above: Performed By: #### C DP, BMP ####[facility] [place] [address] Chloride 106 mmol/L Normal 98-107 [facility] Comment on above: Performed By: #### C DP, BMP ####[facility] [place] [address] CO2 26 mmol/L Normal 20-31 [facility] Comment on above: Performed By: #### C DP, BMP ####[facility] [address] Creatinine 0.91 mg/dL High 0.50-0.90 [facility] Comment on above: Performed By: #### C DP, BMP ####[facility] [place] [address] eGFR (non-black) mL/min/{1.73_m2} Normal >60 [facility] Comment on above: Performed By: #### C DP, BMP ####[facility] [place] [address] Glucose mass conc 99 mg/dL Normal 70-99 [facility] Comment on above: Performed By: #### C DP, BMP ####[facility] [facility] [place] [address] Potassium molar conc 4.2 mmol/L Normal 3.7-5.3 [facility] Comment on above: Performed By: #### C DP, BMP ####[facility] [facility] [place] [address] Sodium 146 mmol/L High 135-144 [facility] Comment on above: Performed By: #### C DP, BMP ####[facility] [place] [address] Urea nitrogen 21 mg/dL Normal 8- [facility] Comment on above: Performed By: #### C DP, BMP ####[facility] [place] [address] BUN/CRE Ratio NOT REPORTED Normal 9- [facility] Comment on above: Performed By: #### C DP, BMP ####[facility] [place] [address] Staging: NOT REPORTED Normal [facility] Comment on above: Performed By: #### C DP, BMP ####[place] [place] [address] CBC with Diffon 05-06-2018 Abs. Basophil 0.10 k/uL Normal 0.0-0.2 [facility] Comment on above: Result Comment: Perf ormed at [facility] [address] [place] [address] Performed By: #### C DP, BMP ####[facility] [facility] [place] [address] Abs.Neutrophil (Seg) 4.00 k/uL Normal 1.3-9.1 [facility] Comment on above: Performed By: #### C DP, BMP ####[facility] [facility] [address] Basophils/100 WBC Auto (Bld) 1 % Normal 0-2 [facility] Comment on above: Performed By: #### C DP, BMP ####[facility] [place] [address].[place] [address] Eosinophils 0.20 10*3/uL Normal 0.0-0.4 [facility] Comment on above: Performed By: #### C DP, BMP ####[facility] [place] [address].[place] [address] Eosinophils/100 leukocytes 2 % Normal 0-4 [facility] Comment on above: Performed By: #### C DP, BMP ####[facility] [place] [address].[place] [address] Erythrocyte distribution width Auto Ratio (RBC) 13.9 % Normal 11.5-14.9 [facility] Comment on above: Performed By: #### C DP, BMP ####[address] [address] Erythrocytes (RBC) 4.68 10*6/uL Normal 4.0-5.2 [facility] Comment on above: Performed By: #### C DP, BMP ####[facility] [place] [address].[place] [address] Hematocrit (HCT) 41.8 % Normal 36-46 [facility] Comment on above: Performed By: #### C DP, BMP ####[address] [address] Hemoglobin mass conc (Bld) 13.7 g/dL Normal 12.0-16.0 [facility] Comment on above: Performed By: #### C DP, BMP ####[address] [address] Lymphocytes 3.20 10*3/uL Normal 1.0-4.8 [facility] Comment on above: Performed By: #### C DP, BMP ####[facility] [facility] [place] [address] Lymphocytes/100 leukocytes 39 % Normal 24-44 [facility] Comment on above: Performed By: #### C DP, BMP ####[facility] [place] [address] MCH 29.3 pg Normal 26-34 [facility] Comment on above: Performed By: #### C DP, BMP ####[facility] [place] [address] MCHC mass conc (RBC) 32.8 g/dL Normal 31-37 [facility] Comment on above: Performed By: #### C DP, BMP ####[facility] [place] [address] MCV 89.3 fL Normal 80-100 [facility] Comment on above: Performed By: #### C DP, BMP ####[facility] [place] [address] Monocytes 0.90 10*3/uL Normal 0.1-1.3 [facility] Comment on above: Performed By: #### C DP, BMP ####[facility] [place] [address] Monocytes/100 leukocytes 11 % High 1-7 [facility] Comment on above: Performed By: #### C DP, BMP ####[facility] [place] [address] Neutrophil (Seg) 47 % Normal 36-66 [facility] Comment on above: Performed By: #### C DP, BMP ####[facility] [place] [address] Platelet mean volume (PMV) 10.3 fL Normal 6.0-12.0 [facility] Comment on above: Performed By: #### C DP, BMP ####[facility] [place], [place] [address]e [place] [address] Platelets 232 10*3/uL Normal 150-450 [facility] Comment on above: Performed By: #### C DP, BMP ####[facility] [place] [address] WBC (Leukocytes) 8.4 10*3/uL Normal 3.5-11.0 [facility] Comment on above: Performed By: #### C DP, BMP ####[facility] [place] [address].[place] [address] Auto Diff Performed NOT REPORTED Normal [facility] Comment on above: Performed By: #### C DP, BMP ####[facility] [facility] [place] [address] Erythrocyte morphology NOT REPORTED Normal [facility] Comment on above: Performed By: #### C DP, BMP ####[facility] [place] [address].[place] [address] Erythrocytes (RBC) NOT REPORTED Normal [facility] Comment on above: Performed By: #### C DP, BMP ####[facility] [place] [address] Granulocytes/100 WBC (Bld) NOT REPORTED Normal 0.00-0.30 [facility] Comment on above: Performed By: #### C DP, BMP ####[address] [place] [address] Immature granulocytes #/vol (Bld) NOT REPORTED Normal 0 [facility] Comment on above: Performed By: #### C DP, BMP ####[facility] [facility] [place] [address] Platelets NOT REPORTED Normal [facility] Comment on above: Performed By: #### C DP, BMP ####[facility] [facility] [place] [address] WBC Morphology NOT REPORTED Normal [facility] Comment on above: Performed By: #### C DP, BMP ####[facility] [place] [address] CNCOon 02-01-2018 CNCO Letter Carmenza vail, [facility] [address] [place] [address] / [facility] [place] [address] [address] 2017Rena Hernandez IMY[address] [place], [place] [address]NAME: ANGELA RUTH [facility] NO.: [id number] Ms. Hernandez:I recently evaluated your patient, Angela Ruth. As you recall, is a 72-year-old woman who complains of low back pain and, to alesser degree, bilateral leg pain. She has undergone three lumbar surgeriesin the past including an L3-L5 decompression with fusion and fixation [id number]. Conservative measures to date have not given [...] office. Thank you for this consultation.Sincerely,Kalia Gill M.D.IHK:[facility] Normal [facility] CNOVon 01-27-2018 CNOV Office Visit (SPNSMN) -------ANGELA RUTH ([id number]) 1945 FDate Time Provider Department01/27/18 12:40 PM [...] 3 previous lumbar spine surgeries (L4-5 hemidiscetomy, ([id number])) L3-5 decompression fusion and fixation ([place]: 2009) [...] 9 Duration Units: Months Frequency: Continuous Intervention: Medication;Cold;Heat;Exerci se;Relaxation;Other: See comment injectionsPain Radiation: down the right and left thighAggravating Factors: Standing, Walking, Driving (riding in a car)Alleviating Factors: NonePain Ratio: Pain in the back is greater than in the legDERMATOMAL DISTRIBUTION:Right: L5 and S1Left: L5 and [id number] STATUS: Impaired Community DistancesPREVIOUS CONSERVATIVE TREATMENTS:OTC NSAIDS for 3 Months or Greater (Ibuprofen and Aleve)Muscle RelaxantsAnalgesicsOpioidsP hysical Therapy: Date(s)Epidural Blocks: Date(s)PREVIOUS SPINAL SURGERY:SURGERY #1: [...] Clemizole Rash- Lincomycin Rash- Oxaprozin Rash- Penicillins RashMEDICATIONS:acetaminoph en (TYLENOL) 500 mg tablet Take 500-1,000 mg [...] tablet Take 20 mg by mouth once daily.losartan-hydrochlorot hiazide (HYZAAR) 100-25 mg per tablet Take 1 tablet bymouth once daily.Fenofibrate (LOFIBRA) 160 mg tablet Take 160 mg by mouth once daily.fexofenadine (RALPH) 180 mg tablet Take 180 mg by mouth once daily.levothyroxine (SYNTHROID) 150 mcg tablet 1 tablet once daily.meclizine (ANTIVERT) 25 mg tab Take 25 mg by mouth three times daily as needed.omeprazole (PRILOSEC) 20 mg capsule 20 mg once daily.acetaminophen-dichlor alphenazone-isometheptene (MIDRIN) 65-100-325 mg percapsule 1 capsule four [...] chest pain, history of A-fib, valvular disease, orpacemaker/ICD.RESPIRATORY : Denies SOB, sputum production, and hemoptysis.MUSCULOSKELETAL: Positive for low back painSKIN: Denies rash or itching.NEURO: Denies CVA, seizures, headaches.OBJECTIVE:PHYSICA L EXAMBP 141/65 Pulse 85 Resp 18 Ht 165.1 cm (5' 5ANDquot;) Wt 76.2 kg (168 lb) BMI 27.96 kg/w0GCJCDZA APPEARANCE: Well nourished, well developed, and no apparent distress.NEURO PSYCH: Patient oriented to person, place, and time. Mood pleasant. Benignaffect.MUSCULOSKELETA L VISUAL INSPECTION CERVICAL: WNL THORACIC: WNL LUMBAR: [...] above her construct. No instability on F/E views.ASSESSMENT/PLANIMPRES DEEPA:(M54.40, G89.29) Chronic midline low back pain with [...] : 1:07 PM PAGER:PTFReferring Provider: RENA HERNANDEZ [[id number]]Allergies As of Date: 01/27/2018 Noted Allergy ReactionLINCOSAMIDES [...] [M54.40, G89.29]Order(s):XR LUMBAR MOTION 4V AP/LAT/ FLEX/EXT [[id number]] Order #: [id number] FUTUREPrescriptions as of 01/27/2018 Sig: ACETAMINOPHEN 500 [...] 20 MG CAPSULE,SHARI* 20 mg once daily. ACETAMINOPHEN-ISOMETHEPTENE -D* 1 capsule four times daily as* CYCLOBENZAPRINE [...] Jan 27, 2018 11:58 AM [facility] Sig: Take 500-1,000 mg by mouthevery 6 hours as needed. PROAIR HFA 90 MCG/ACTUATION AEROSOL INHALER >> Valentine Madrid [place], [place] 01/27/2018 11:58 AM >> VALENTINE MADRID Jan 27, 2018 11:58 AM Received from: External Pharmacy AMITRIPTYLINE 100 MG TABLET >> Valentine [place], [place] 01/27/2018 11:58 AM >> VALENTINE MADRID Jan 27, 2018 11:58 AM Received from: [facility] [place] Received Sig: Take 50 mg by mouth nightlyIndications: Treatment to Prevent Migraine Headaches ATORVASTATIN 40 MG TABLET >> Valentine Madrid [place], [place] 01/27/2018 11:58 AM >> VALENTINE MADRID Jan 27, 2018 11:58 AM [facility] Received Sig: Take 1 tablet (40 [...] Jan 27, 2018 11:58 AM [facility] Received Si,000 Units beforebreakfast Indications: Vitamin D Deficiency. DICLOFENAC SODIUM 75 MG TABLET,DELAYED RELEASE >> Valentine Madrid [place], [place] 01/27/2018 11:58 AM >> VALENTINE MADRID Jan 27, 2018 11:58 AM [facility] Received Sig: Take 75 mg by mouth 2(two) times a day as needed. 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 Indications: High Amount of Fats in the Blood FEXOFENADINE 180 MG TABLET >> Valentine Madrid [place], [place] 01/27/2018 11:58 AM >> VALENTINE MADRID Jan 27, 2018 11:58 AM [facility] Received Sig: Take 180 mg by mouthbefore breakfast Indications: Allergic Rhinitis. LEVOTHYROXINE 150 MCG TABLET >> Valentine Madrid [place], [place] 01/27/2018 11:58 AM >> VALENTINE MADRID Jan 27, 2018 11:58 AM Received from: External Pharmacy MECLIZINE 25 MG TABLET >> Valentine Madrid [place], [place] 01/27/2018 11:58 AM >> VALENTINE MADRID Sabra Jan 27, 2018 11:58 AM Received from: [facility] [place] Received Sig: Take 25 mg by mouth 3 timesdaily as needed OMEPRAZOLE 20 MG CAPSULE,DELAYED RELEASE >> Valentine Madrid [place], [place] 01/27/2018 11:58 AM >> VALENTINE MADRID Sabra Jan 27, 2018 11:58 AM [facility] Received Si mg before breakfastIndications: Gastroesophageal Reflux. ACETAMINOPHEN-ISOMETHEPTENE -DICHLORALPHENAZONE 325 MG-65 MG-100 MG ORAL CAP >> Valentine Madrid [place], [place] 01/27/2018 11:58 AM >> VALENTINE MADRID Jan 27, 2018 11:58 AM Received from: [facility] Received Si (four) times a day asneeded for migraine. CYCLOBENZAPRINE 5 MG TABLET >> Valentine Madrid [place], [place] 01/27/2018 11:58 AM >> VALENTINE MADRID Jan 27, 2018 11:58 AM Received from: [facility] Received Sig: Take 10 mg by mouth 3(three) times a day as needed for muscle spasms. EZETIMIBE 10 MG-SIMVASTATIN 40 MG TABLET >> Valentine Madrid [place], [place] 01/27/2018 11:58 AM >> VALENTINE MADRID Jan 27, 2018 11:58 AM Received from: [facility] [place] Received Sig: Take 1 tablet by mouthnightly. ESOMEPRAZOLE MAGNESIUM 40 MG CAPSULE,DELAYED RELEASE >> Valentine Madrid [place], [place] 01/27/2018 11:58 AM >> VALENTINE MADRID Jan 27, 2018 11:58 AM Received from: [facility] [place] Received Sig: Take 40 mg by mouth everymorning (before breakfast). Indications: Gastroesophageal Reflux Disease METOCLOPRAMIDE 10 MG TABLET >> Valentine Madrid [place], [place] 01/27/2018 12:02 PM >> VALENTINE MADRID Sabra Jan 27, 2018 12:02 PM Received from: [facility] [place] Received Sig: Take 10 mg by mouthcontinuous MAGNESIUM GLUCONATE 27 MG (500 MG) TABLET >> Valentine Madrid [place], [place] 01/27/2018 12:02 PM >> VALENTINE MADRID Jan 27, 2018 12:02 PM Received from: [facility] [place] Received Sig: Take 500 mg by mouth 2times daily TOPIRAMATE 100 MG TABLET >> Valentine Madrid [place], [place] 01/27/2018 12:05 PM >> VALENTINE MADRID Sabra Jan 27, 2018 12:05 PM Received from: External PharmacyProblem List As Of Date 01/27/2018 Noted Resolved Chronic midline low back pain with sciatica [M5*INVALID FOR* Status:Closed by KALIA GILL MD on 01/27/18 Normal [facility] PROGRESSon 01-27-2018 PROGRESS HNO ID: [id number] thor: Angela Lake RtService: (none)Author Type: (none)Type: Progress NotesFiled: 01/27/2018 2:25 PMNote Text: Radiology Service Progress NotePATIENT NAME: Angela RuthMRN: [id number] OF SERVICE: January 27, 2018TIME: 2:25 PMPATIENT IDENTITY VERIFICATION COMPLETED USING TWO (2) METHODS: Patientconfirmed name verbally and Date of .PATIENT GENDER DATA: Female. status: : NoBreastfeeding status: NO.PATIENT RELEVANT IMPLANT DATA REVIEWED: Not ApplicableRADIOLOGY DEPARTMENT: General X-ray: Exam(s) Completed: Spine X-Ray(s):Lumbar AP / LAT / L5-S1 / FLEX-EXTPERIPHERAL IV DATA: Not applicableSIGNED BY: Angela Lake [facility]Access [facility] 2:25 PM Normal [facility] PROGRESS HNO ID: [id number] thor: Kalia Mata: (none)Author Type: PhysicianType: Progress [...] 9 Duration Units: Months Frequency: Continuous Intervention: Medication;Cold;Heat;Exerci se;Relaxation;Other: See comment injectionsPain Radiation: down the right and left thighAggravating Factors: Standing, Walking, Driving (riding in a car)Alleviating Factors: NonePain Ratio: Pain in the back is greater than in the legDERMATOMAL DISTRIBUTION:Right: L5 and S1Left: L5 and [id number] STATUS: Impaired Community DistancesPREVIOUS CONSERVATIVE TREATMENTS:OTC NSAIDS for 3 Months or Greater (Ibuprofen and Aleve)Muscle RelaxantsAnalgesicsOpioidsP hysical Therapy: Date(s)Epidural Blocks: Date(s)PREVIOUS SPINAL SURGERY:SURGERY #1: [...] Clemizole Rash- Lincomycin Rash- Oxaprozin Rash- Penicillins RashMEDICATIONS:acetaminoph en (TYLENOL) 500 mg tablet Take 500-1,000 mg [...] mg tablet Take 20 mg by mouth oncedaily.losartan-hydrochl orothiazide (HYZAAR) 100-25 mg per tablet Take 1 tabletby mouth once daily.Fenofibrate (LOFIBRA) 160 mg tablet Take 160 mg by mouth once daily.fexofenadine (RALPH) 180 mg tablet Take 180 mg by mouth once daily.levothyroxine (SYNTHROID) 150 mcg tablet 1 tablet once daily.meclizine (ANTIVERT) 25 mg tab Take 25 mg by mouth three times daily asneeded.omeprazole (PRILOSEC) 20 mg capsule 20 mg once daily.acetaminophen-dichlor alphenazone-isometheptene (MIDRIN) 65-100-325 mg percapsule 1 capsule four [...] chest pain, history of A-fib, valvular disease, orpacemaker/ICD.RESPIRATORY : Denies SOB, sputum production, and hemoptysis.MUSCULOSKELETAL: Positive for low back painSKIN: Denies rash or itching.NEURO: Denies CVA, seizures, headaches.OBJECTIVE:PHYSICA L EXAMBP 141/65 Pulse 85 Resp 18 Ht 165.1 cm (5' 5 ) Wt 76.2 kg (168 lb) BMI 27.96 kg/k6DBDWYHS APPEARANCE: Well nourished, well developed, and no [...] scoliosis above her construct. No instability on F/Eviews.ASSESSMENT/PLANIMP RESSION:(M54.40, G89.29) Chronic midline low back pain with [...] 27, 2018 : 1:07 PM PAGER:PTF Normal [facility] XR LUMBAR 4V AP/LAT/ FLEX/EX Ton 01-27-2018 XR LUMBAR 4V AP/LAT/ FLEX/EXT * * *Final Report* * *DATE OF EXAM: Jan 27 2018 2:19PM [id number] - XR LUMBAR 4V AP/LAT/ FLEX/EXT / REASON: multiple diagnoses * * * * Physician Interpretation * * * * EXAMINATION: XR LUMBAR 4V AP/LAT/ FLEX/EXTPATIENT/TECHNOLOGIS T PROVIDED HISTORY: back pain x9 monthsCLINICAL INFORMATION: [...] Limited evaluation of the hip joints is unremarkable.IMPRESSION:POS TOPERATIVE AND DEGENERATIVE CHANGES DESCRIBEDTranscriptionist: PSCRobert Transcribe Date/Time: Jan 27 2018 2:50PDictated by : CARMENCITA DALTON MDThis examination was interpreted and the report reviewed and electronically signed by: CARMENCITA DALTON MD on Jan 27 2018 2:52PM [id number] Normal [facility] TN-MR HIP LT WO CONT IMPORTo n 11-01-2017 TN-MR HIP LT WO CONT IMPORT Images were obtained outside of [facility] [id number] Normal [facility] MR-MR LUMBAR SPINE W WO CONT IMPORTon 09-13-2017 MR-MR LUMBAR SPINE W WO CONT IMPORT Images were obtained outside of [facility] [id number] Normal [facility] Vital Signs Date Time Vital Sign Value Performing Clinician Leyda nevarez 01-07-2024 10:29-0500 Body height 160 cm Yoanna MAS [facility] 01-07-2024 10:29-0500 Body mass index (BMI) [Ratio] 27.63 kg/m2 Yoanna MAS Work Phone: [employer] 01-07-2024 10:29-0500 Body weight 70.76 kg Yoanna Dorsey APRN-DEAN OF FACULTY Work Phone: [facility] 01-07-2024 10:29-0500 Diastolic blood pressure 78 mm[Hg] Yoanna Dorsey GLOBAL MARKETING OPERATIONS MANAGER-DEAN OF FACULTY Work Phone: [facility] 01-07-2024 10:29-0500 Heart rate 80 /min Yoanna Dorsey GLOBAL MARKETING OPERATIONS MANAGER-[employer] OF [employer]Y Work Phone: [facility] 01-07-2024 10:29-0500 Systolic blood pressure 124 mm[Hg] Yoanna Dorsey APRN-DEAN OF FACULTY Work Phone: [facility] Encounters Encounter Date Encounter Type Care Provider Facility Start: 01-18-2024 End: 01-18-2024 ambulatory RIA SNYDER Not Available Start: 01-12-2024 End: 01-12-2024 ambulatory RIA SNYDER Not Available Start: 01-11-2024 End: 01-12-2024 ambulatory [facility] Start: 01-10-2024 End: 01-11-2024 ambulatory Adelfo Hansen MD Facility: [facility] Start: 01-07-2024 End: 01-07-2024 ambulatory [facility] Start: 01-07-2024 End: 01-07-2024 Office outpatient visit 25 minutes Yoanna HERRERADEAN OF FACULTY Work Phone: [facility] Comment on [...] Start: 01-06-2024 End: 01-06-2024 ambulatory Ria Snyder [employer] UP PERSON Work Phone: [facility] Comment on above: General weakness (Pr imary Dx); History of falling Start: 01-04-2024 Bamboo flowsheet Ria Wrig ht [employer] E[employer] LINE UP PERSON Work Phone: [facility] Start: 01-04-2024 Bamboo flowsheet Ria Wrig ht [employer] EFF[employer]S LINE UP PERSON Work Phone: [facility] Start: 01-04-2024 End: 01-04-2024 ambulatory RIA SNYDER Not Available Start: 01-04-2024 End: 01-04-2024 ambulatory Ria Snyder [employer] E[employer] LINE UP PERSON Work Phone: [facility] Comment on above: General weakness (Pr imary Dx); History of falling Start: 01-03-2024 Refill Bia Gaxiola Work Phone: [facility] Comment on above: Mixed hyperlipidemia (CMS/HCC) (Primary Dx); Stress incontinence of urine Start: 12-31-2023 End: 12-31-2023 ambulatory RIA SNYDER Not Available Start: 12-30-2023 Chart abstracting Elmer soto PT Work Phone: [facility] Start: 12-28-2023 End: 12-28-2023 ambulatory RIA SNYDER Not Available Start: 12-23-2023 End: 12-23-2023 ambulatory RIA SYNDER Not Available Start: 12-23-2023 End: 12-23-2023 ambulatory Ria Snyder [employer] E[employer] UP PERSON Work Phone: [facility] Comment on above: General weakness (Pr imary Dx); History of falling Start: 12-21-2023 End: 12-21-2023 ambulatory RIA SNYDER Not Available Start: 12-16-2023 End: 12-16-2023 ambulatory RIA SNYDER Not Available Start: 12-13-2023 Refill John aggarwal MD Work Phone: [facility] Start: 12-08-2023 End: 12-08-2023 ambulatory ELMER PETTIT Not Available Start: 12-07-2023 End: 12-07-2023 ambulatory SANTO GARCIA Not Available Start: 12-06-2023 End: 12-06-2023 ambulatory BIA CAO Not Available Start: 12-03-2023 End: 12-04-2023 ambulatory JOHN JOHNSON [facility] Start: 11-29-2023 End: 11-29-2023 ambulatory LALIT Guillermo [facility] Start: 11-23-2023 End: 11-24-2023 ambulatory BIA [...] Start: 10-12-2022 End: 10-12-2022 ambulatory BIA Anny [facility] Start: 09-28-2022 End: 09-28-2022 ambulatory [facility] Anny [facility] Start: 05-16-2018 End: 05-16-2018 Ambulatory AUDREY HORN [facility] Start: 05-06-2018 End: 05-11-2018 Ambulatory LENNY PEDRAZA [facility] Start: 05-02-2018 Patient encounter status Antonietta Johnson MD Work Phone: [facility] Work Phone: Start: 01-27-2018 End: 01-27-2018 Ambulatory KALIA GILL [facility] Start: 01-27-2018 End: 01-31-2018 Ambulatory KALIA GILL [facility] Procedures Date Procedure Procedure Detail Performing Clinician Start: 01-07-2024 Adult depression scr eening assessment Yoanna Dorsey GLOBAL MARKETING OPERATIONS MANAGER-[employer]AC[employer]Y Work Phone: Start: 11-29-2023 Follow-up visit Follow-up LALIT Guillermo JOSE MANUEL Start: 04-23-2023 Adult depression scr eening assessment John Johnson MD Work Phone: Start: 05-16-2018 DISCHARGE PATIENT LENNY PEDRAZA Start: 05-16-2018 BEDREST LENNY BRIGGSDAVID IZABEL Start: 05-16-2018 Continuous pulse oximetry LENNY PEDRAZA Start: 05-16-2018 ENCOURAGE DEEP BREAT KELSEA AND COUGHING LENNY BRIGGSAMANDATIA Start: 05-16-2018 NOTIFY PHYSICIAN (SPECIFY) LENNY BRIGGSAMANDANILSConnie Start: 05-16-2018 NURSING COMMUNICATION M FEDERICO MILO [...] 01-07-2025 Adult BMI Screening Adult BMI Screening [facility] Start: 01-07-2025 Depression Screening Depression Screening [facility] Start: 01-07-2025 Tobacco Screening Tobacco Screening [facility] Start: 12-06-2024 Medicare Annual Wellness (AWV) Medicare Annual Wellness (AWV) [facility] Start: 11-29-2024 Adult BMI Screening Adult BMI Screening [facility] Start: 11-29-2024 Tobacco Screening Tobacco Screening [facility] Start: 10-01-2024 Fall Risk Screening Fall Risk Screening [facility] Start: 07-10-2024 End: 07-10-2024 Patient encounter procedure 07/10/2024 11:00 AM EDT Office Visit [facility] [address] [place] [address] Yoanna Dorsey, GLOBAL MARKETING OPERATIONS MANAGER-DEAN OF [employer]ACULTY [address] [place] [phone] [facility] Start: 05-21-2024 Influenza vaccination Influenza Vaccine (#1) [facility] Comment on above: Postponed from 07/23/2023 (Patient Refus ed) Start: 04-23-2024 Depression Screening Depression Screening [facility] Start: 04-11-2024 End: 04-11-2024 Patient encounter procedure 04/11/2024 2:45 PM EDT Off ice Visit [facility] [address] [place] [address] John Johnson MD [address] [place] [address] [facility] Start: 04-03-2024 End: 04-03-2024 Patient encounter procedure 04/03/2024 11:20 AM EDT Office Visit [facility] [address] [place] [phone] Bia Cao MD [address] [place], [place] [id number] [facility] Start: 02-09-2024 End: 02-09-2024 Patient encounter procedure 02/09/2024 11:00 AM EDT Office Visit [facility] [address] [facility] [address] [place] [phone] Ryan Dallas MD [address] [facility] [place] [address] [facility] Start: 01-20-2024 End: 01-20-2024 ambulatory 01/20/2024 11:00 AM EST Treatment [facility] [address] [place] [address] Elmer Pettit, PT [address] [place] [address] [facility] Start: 01-18-2024 End: 01-18-2024 ambulatory 01/18/2024 11:30 AM EST Treatment [facility] [address] [place] [phone] Ria Snyder, OPT[employer] EFFECTS LINE UP PERSON [address] [place] [address] [facility] Start: 01-14-2024 End: 01-14-2024 ambulatory 01/14/2024 1:00 PM EST Treatment [facility] [address] [place] [phone] Ria Snyder, [employer] EFFECTS LINE UP PERSON [address] [place] [address] [facility] Start: 01-12-2024 End: 01-12-2024 ambulatory 01/12/2024 12:30 PM EST Treatment [facility] [address] [place] [phone] Ria Snyder, OPTICAL EFFECTS LINE UP PERSON [address] [place] [address] [facility] Start: 01-11-2024 End: 01-11-2024 Patient encounter procedure 01/11/2024 11:00 AM EST Office Visit [facility] [address] [place] [address] Yoanna Dorsey APRN-DEAN OF FACULTY [address] [place] [address] [facility] Start: 01-06-2024 End: 01-06-2024 ambulatory [facility] Start: 01-04-2024 End: 01-04-2024 ambulatory 01/04/2024 11:30 AM EST Treatment [facility] [address] [place] [address] Ria Snyder, OPTICAL EFFECTS LINE UP PERSON [address] [place] [address] [facility] Start: 12-31-2023 End: 12-31-2023 ambulatory 12/31/2023 10:00 AM EST Treatment [facility] [address] [place] [address] Ria Snyder, OPTICAL EFFECTS LINE UP PERSON [address] [place] [address] [facility] Start: 12-30-2023 End: 12-30-2023 ambulatory 12/30/2023 11:30 AM EST Treatment [facility] [address] [place] [address] Elmer Pettit, PT [address] [place] [address] [facility] Start: 12-28-2023 End: 12-28-2023 ambulatory 12/28/2023 11:30 AM EST Treatment [facility] [address] [place] [address] Ria Sndyer, OPTICAL EFFECTS LINE UP PERSON [address] [place] [address] [facility] Start: 07-23-2023 COVID-19 Vaccine () COVID-19 Vaccine ( season) [facility] Start: 07-23-2023 Influenza vaccination Influenza Vaccine [facility] Start: 08-21-2021 DTaP,Tdap and Td Vaccines (2 - Td or Tdap) DTaP,Tdap and Td Vaccines (2 - Td or Tdap) [facility] Start: 02-26-2010 Administration of varicella zoster vaccine Zoster (Shingles) Vaccine (2 of 3) [facility] Start: 1963 Adult BMI Follow Up Plan Adult BMI Follow Up Plan [facility] Start: 1945 Medicare Annual Wellness Visit Medicare Annual Wellness Visit [facility] End: 01-07-2025 CBC W Auto Differential panel - Blood CBC auto differential Lab Routine Essential tremor Balance problem Polyneuropathy 1 Occurrences starting 01/07/2024 until 01/07/2025 [facility] Comment on above: 1 Occurrences starting 01/07/2024 until 01/07/2025 End: 01-07-2025 Cyanocobalamin vitamin b-12 Vitamin B12 Lab Routine Balance problem Polyneuropathy 1 Occurrences starting 01/07/2024 until 01/07/2025 [facility] Comment on above: 1 Occurrences starting 01/07/2024 until 01/07/2025 End: 01-07-2025 Ferritin [Mass/volume] in Serum or Plasma Ferritin Lab Routine Polyneuropathy Abnormal level of blood mineral 1 Occurrences starting 01/07/2024 until 01/07/2025 [facility] Comment on above: 1 Occurrences starting 01/07/2024 until 01/07/2025 End: 01-07-2025 Folate [Mass/volume] in Serum or Plasma Folate Serum Lab Routine Balance problem Polyneuropathy 1 Occurrences starting 01/07/2024 until 01/07/2025 [facility] Comment on above: 1 Occurrences starting 01/07/2024 until 01/07/2025 End: 01-07-2025 Hemoglobin A1c/Hemoglobin.total in Blood Hemoglobin A1c Lab Routine Balance problem Polyneuropathy Prediabetes 1 Occurrences starting 01/07/2024 until 01/07/2025 [facility] Comment on above: 1 Occurrences starting 01/07/2024 until 01/07/2025 End: 01-07-2025 Homocysteine total Homocysteine total Lab Routine Balance problem Polyneuropathy Essential (primary) hypertension 1 Occurrences starting 01/07/2024 until 01/07/2025 [employer] Comment on above: 1 Occurrences starting 01/07/2024 until 01/07/2025 End: 01-07-2025 Immunoelectrophoresis for Therapy Monitoring Immunoelectrophoresis for Therapy Monitoring Lab Routine Balance problem Polyneuropathy 1 Occurrences starting 01/07/2024 until 01/07/2025 [facility] Comment on above: 1 Occurrences starting 01/07/2024 until 01/07/2025 End: 01-07-2025 Iron and TIBC Iron and TIBC Lab Routine Essential tremor Balance problem Polyneuropathy Abnormal level of blood mineral 1 Occurrences starting 01/07/2024 until 01/07/2025 [facility] Comment on above: 1 Occurrences starting 01/07/2024 until 01/07/2025 End: 01-07-2025 Methylenetetrahydrofolate reductase Methylenetetrahydrofolate reductase Lab Routine Balance problem Polyneuropathy 1 Occurrences starting 01/07/2024 until 01/07/2025 [facility] [employer] [facility] Comment on above: 1 Occurrences starting 01/07/2024 until 01/07/2025 End: 01-07-2025 Methylmalonic acid screen Methylmalonic acid screen La b Routine Balance problem Polyneuropathy 1 Occurrences starting 01/07/2024 until 01/07/2025 [facility] Comment on above: 1 Occurrences starting 01/07/2024 until 01/07/2025 End: 01-07-2025 Protein electrophoresis, serum Protein electrophoresis, serum Lab Routine Balance problem Polyneuropathy 1 Occurrences starting 01/07/2024 until 01/07/2025 [facility] [employer] Comment on above: 1 Occurrences starting 01/07/2024 until 01/07/2025 End: 01-07-2025 Thyroid profile includes TSH FT4 Thyroid profile includes TSH FT4 Lab Routine Balance problem Polyneuropathy Prediabetes 1 Occurrences starting 01/07/2024 until 01/07/2025 [facility] [employer] Comment on above: 1 Occurrences starting 01/07/2024 until 01/07/2025 Immunizations Immunization Date Immunization Notes Care Provider [facility] 03-12-2021 COVID-19, mRNA, LNP- S, PF, 100mcg/0.5mL Dose John Johnson MD [facility] 03-11-2021 Moderna SARS-CoV-2 Vaccination Ria Snyder PTA Work Phone: [facility] 02-12-2021 COVID-19, mRNA, LNP- S, PF, 100mcg/0.5mL Dose John Johnson MD Work Phone: [facility] 02-11-2021 Moderna SARS-CoV-2 Vaccination Ria Snyder [employer] PERSON Work Phone: [facility] 11-12-2020 pneumococcal conjuga te vaccine, 13 valent John Johnson MD Work Phone: [facility] 09-17-2020 influenza, high dose seasonal, preservative-free John Johnson MD Work Phone: [facility] 09-17-2020 Seasonal, quadrivale nt, recombinant, injectable influenza vaccine, preservative free John Johnson MD Work Phone: [facility] 09-17-2020 influenza virus vacc ine, unspecified formulation John Johnson MD Work Phone: [facility] 08-30-2019 Seasonal, quadrivale nt, recombinant, injectable influenza vaccine, preservative free John Johnson MD Work Phone: [facility] 08-29-2018 influenza, injectabl e, quadrivalent, preservative free John Johnson MD Work Phone: [facility] 08-22-2015 influenza, seasonal, injectable, preservative free Ria Snyder [employer] LINE UP PERSON Work Phone: [facility] 08-13-2015 pneumococcal polysaccharide vaccine, 23 valent Ria Snyder [employer] UP PERSON Work Phone: [facility] 08-21-2011 tetanus and diphther ia toxoids, adsorbed, preservative free, for adult use (5 Lf of tetanus toxoid and 2 Lf of diphtheria toxoid) John Johnson MD Work Phone: [facility] 11-22-2009 zoster vaccine, live Juan Snyder [employer] LINE UP PERSON Work Phone: [facility] 11-22-2009 zoster vaccine, unspecified formulation John Johnson MD Work Phone: [facility] Payers Date Payer Category Payer Private Health Insurance 2021 Medicare [id number] 2021 Medicare [id number] 2014 Medicare [id number] 1945 Unknown [id number] 2.16. 840.1.968357.3.579.2.175 1945 Unknown [id number] 2.16. 840.1.540622.3.579.2.175 1945 Unknown [id number] 2.16.84 0.1.826801.3.579.2.1286 1945 Unknown [id number] 2.16.8 40.1.044457.3.579.2.1286 1945 Unknown [id number] 2.16.8 40.1.905514.3.579.2.1286 194 Unknown [id number] 2.16.84 0.1.200390.3.579.2.1286 1945 Unknown [id number] 2.16.84 0.1.133043.3.579.2.1259 1945 Unknown [id number] 2.16.84 0.1.701543.3.579.2.1259 1945 Unknown [id number] 2.16.84 0.1.965850.3.579.2.1259 1945 Unknown [id number] 2.16.84 0.1.576106.3.579.2.1259 194 Unknown [id number] 2.16.84 0.1.634228.3.579.2.1259 194 Unknown [id number] 2.16.84 0.1.785187.3.579.2.1259 1945 Unknown [id number] 2.16.84 0.1.085546.3.579.2.1259 -194 Unknown [id number] 2.16.84 0.1.042422.3.579.2.1259 1945 Unknown [id number] 2.16.84 0.1.237302.3.579.2.1259 194 Unknown [id number] 2.16.84 0.1.524448.3.579.2.1259 1945 Unknown [id number] 2.16.84 0.1.135176.3.579.2.1259 1945 Unknown [id number] 2.16.84 0.1.994626.3.579.2.1259 1945 Unknown [id number] 2.16.840 .1.103765.3.579.2.9 1945 Unknown [id number] 2.840 .1.563051.3.579.2.125 1945 Unknown [id number] 2.840 .1.116347.3.579.2.1258 1945 Unknown [id number] 2.840 .1.448045.3.579.2.1258 1945 Unknown [id number] 2.840 .1.196007.3.579.2.1258 1945 Unknown [id number] . 840.1.754128.3.579.2.196 1945 Unknown [id number] . 840.1.204119.3.579.2.196 1945 Unknown [id number] . 840.1.808369.3.579.2.196 1945 Unknown [id number] 2. 840.1.280462.3.579.2.196 Social History Date Type Detail Facility Start: 06-04-2023 End: 11-29-2023 Tobacco smoking status MNIS Never smoked tobacco [facility] History of tobacco use Passive smoker Pro [facility] Start: 06-04-2023 End: 11-29-2023 Tobacco use and exposure Smokeless tobacco non-user [facility] Start: 11-29-2023 End: 01-07-2024 Alcohol intake Current non-drinker of alcohol (finding) [facility] Start: 12-03-2020 End: 11-29-2023 Alcohol intake [facility] Start: 12-03-2020 End: 11-29-2023 Tobacco use panel [facility] Adolescent depressio n screening assessment 0 [facility] Start: 1945 Sex Assigned At Female [facility] Start: 05-22-2021 Gender identity Identifies as female gender (finding) [facility] Start: 05-22-2021 Sexual orientation Heterosexual (finding) [facility] Start: 12-07-2023 Alcohol intake Current drinker of alcohol (finding) [facility] Start: 05-04-2023 Alcohol Comment caffeine: occasional [facility] Start: 1945 Sex Assigned At Not on file [facility] Medical Equipment Procedure Code Equipment Code Equipment Origin al Text Equipment Identifier Dates Patch Dura 1x1in Drmtrx-[place] + Clgn Rgnrt Membr Strl - [id number] Start: 07-03-2021 Goals Date Patient Goal Desired Activity /State Personal health goal Comment on above: Formatting of this n ote might be different from the original. Evaluation of progress towards goal: safe transition from hospital to home with support of her friends/neighbors History of Present illness Narrative 01-07-2024 Yoanna Dorsey APRN-MAHENDRA - 01/07/2024 10:30 AM EST Note Date [...] (migraines) Inderal (tremors) Gabapentin 200 mg nightly [place] PRN Occipital nerve blocks (last 03/2021) Tizanidine [...] Breast disorder 4 biopsies Bronchitis 01/01/2017 Cancer ([facility]) Basal cell Carpal tunnel syndrome Cataract Chronic constipation Chronic pain disorder Dental disease Crowns Depression Diastolic dysfunction Essential hypertension Fibromyalgia GERD (gastroesophageal reflux disease) Sky's thyroiditis Hyperlipidemia Hypertension Hypothyroidism IBS (irritable bowel syndrome) Inflammatory bowel disease 1998 Low back pain Lumbosacral disc disease LVH [...] 07/07/2018 Performed by Lalit Leach MD at [facility] ENDOSCOPY COSMETIC SURGERY 1985 DISCECTOMY 1989 Partial L4-5 EGD 2001 EYE SURGERY 2014 FOOT SURGERY 2009 Reattachment of tendon left foot with bone graft HIP SURGERY 2003 Excision of bursa left hip HYSTERECTOMY 1983 INJECTION BLOCK EPIDURAL STEROID LUMBAR/SACRAL Left L 5,1 NR Left 12/20/2020 Performed by Shubham Clifton MD at [facility] BLOCK NERVE MEDIAL BRANCH right C 4/5,5/6 Right 05/22/2022 Performed by Shubham Clifton MD at [facility] IN[facility] BLOCK NERVE MEDIAL BRANCH right C 4/5,5/6 Right 04/17/2022 Performed by Shubham Clifton MD at [facility] INJECTION CAUDAL EPIDURAL WITH CATHETER, STEROID N/A 03/07/2018 Performed by Shubham Clifton MD at [facility] INJECTION LARGE JOINT BURSA: bilat hip Bilateral 12/10/2017 Performed by Shubham Clifton MD at [facility] MEDIAL BRANCH NERVE BLOCK Bilateral L 4/5, 5/1 Bilateral 06/28/2017 Performed by Shubham Clifton MD at [facility] MEDIAL BRANCH NERVE BLOCK Right L 2/3, 3/4 Right 12/08/2019 Performed by Shubham Clifton MD at [facility] MEDIAL BRANCH NERVE BLOCK RIGHT L23 34 Right 01/19/2020 Performed by Shubham Clifton MD at [facility] SI JOINT Bilateral 04/09/2017 Performed by Shubham Clifton MD at [facility] SI JOINT Bilateral SI Joint Bilateral 05/31/2020 Performed by Shubham Clifton MD at [facility] SI JOINT Left SI JOint Left 01/06/2019 Performed by Shubham Clifton MD at [facility] SI JOINT Right SI Joint Right 06/09/2019 Performed by Shubham Clifton MD at [facility] SPINE TRANSFORAMINAL Left L 4, 5 NR Left 09/24/2017 Performed by Shubham Clifton MD at [facility] SPINE TRANSFORAMINAL Left L 5,1 N[place] Left 01/08/2023 Performed by Shubham Clifton MD at [facility] SPINE TRANSFORAMINAL Right L 5,1 Nroot Right 11/27/2022 Performed by Shubham Clifton MD at [facility] INJECTION STEROID EPI 1 WITH SEDATION Left 5,1 NR Left 05/08/2019 Performed by Shubham Clifton MD at [facility] KNEE ARTHROSCOPY 2010, 2013 KNEE SURGERY 2010 2013 Arthroscopy bilateral/repair meniscus right X2, left X1 LAMINECTOMY LUMBAR FORAMENOTOMY MULTI LEVEL L1-2 RIGHT/L2-3 BILATERAL/LUMBAR DRAIN INSERTION N/A 07/03/2021 Performed by Corey Chacon MD at [facility] LAPAROTOMY OOPHERECTOMY Bilateral 1983 LUMBAR DISCECTOMY LUMBAR FUSION 2009 L3-5 LUMBAR LAMINECTOMY MICRO LUMBAR DISCECTOMY L5-S1/ FORAMINOTOMY L5-S1 Left 01/14/2017 Performed by Corey Chacon MD at [facility] OOPHORECTOMY 1982 OTHER SURGICAL HISTORY Knee Arthroscopy With Medial Meniscus Repair OTHER SURGICAL HISTORY Spinal Diskectomy RADIO FREQUENCY ABLATION Left L 4/5, 5/1 Left 12/02/2018 Performed by Shubham Clifton MD at [facility] RADIO FREQUENCY ABLATION Left L 4/5, 5/1 Left 07/30/2017 Performed by Shubham Clifton MD at [facility] RADIO FREQUENCY ABLATION Left SI joint Left 03/31/2019 Performed by Shubham Clifton MD at [facility] RADIO FREQUENCY ABLATION Right L2/3, 3/4 Right 03/29/2020 Performed by Shubham Clifton MD at [facility] RADIOFREQUENCY ABLATION SPINAL Left Si joint Left 05/07/2017 Performed by Shubham Clifton MD at [facility] RADIOFREQUENCY ABLATION SPINAL Right C 4/5,5/6 Right 06/26/2022 Performed by Shubham Clifton MD at [facility] RADIOFREQUENCY ABLATION SPINAL RIGHT SI JOINT Right 05/21/2017 Performed by Shubham Clifton MD at [facility] RELEASE CARPAL TUNNEL Left 11/04/2021 Performed by Corey Chacon MD at [facility] SHOULDER SURGERY 2011 Right rotator cuff SKIN BIOPSY 1999 SPINE SURGERY 1989,2006,2017, 2020 STEROID INJECTION KNEE [...] mg total) by mouth in the morning. kqmozrb-tthelobfkwciz-flzonlrz (EXCEDRIN MIGRAINE) 250-250-65 mg per tablet Take 1 tablet by mouth every 6 (six) hours as needed for headaches. atorvastatin (LIPITOR) 40 mg tablet Take 1 tablet (40 mg total) by mouth in the morning. buprenorphine (BUTRANS) 7.5 mcg/hour patch weekly Place 1 patch on the skin once a week. hhuzbakmtk-ibsoskerfojzw-oaur (ESGIC) 50-325-40 mg per tablet Take 1 [...] procedures Referring and communicating with other health lawn care specialist (not separately reported) Documenting clinical information in the electronic or other health record Independently interpreting results (not separately reported) and communicating results to the patient/family/caregiver Care coordination (not separately reported) - Yoanna Dorsey DNP, GLOBAL MARKETING OPERATIONS MANAGER-DEAN OF FACULTY 01/07/24 10:53 AM CHACE Rayo 01/07/24 1053 documented in this encounter [employer] System Instructions 01-07-2024 Patient Instructions Note Date [...] earlier if needed. documented in this encounter [employer] Note 12-13-2023 Telephone Encounter - Ira Rojas [...] History of falling documented in this encounter [facility] Evaluation note Note Date & Type Note Facility Evaluation note Diagnosis Mixed hyperlipidemia (CMS/HCC)- Primary Mixed hyperlipidemia Stress incontinence of urine documented in this encounter [facility] Healthcare Evaluation note Note Date & Type Note Facility Evaluation note Diagnosis General weakness- Primary Other malaise and fatigue History of falling documented in this encounter [facility] Healthcare Evaluation note Note Date & Type Note Facility Evaluation note Diagnosis General weakness- Primary Other malaise and fatigue History of falling documented in this encounter [facility] Healthcare Evaluation note Note Date & Type [...] FoundDocuments on File Type Date Recorded Patient Fire Protection Specialist Expl 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 Durable Power of Phone Triage Specialist 07/16/2021 3:45 PM Living Will 07/16/2021 3:40 [...] Documents on File Type Date Recorded Patient Fire Protection Specialist Expl anation Durable Power of Phone Triage Specialist 07/16/2021 3:45 PM Living Will 07/16/2021 3:40 [...] Referral Specialty Diagnoses / Procedures Referred By Violette staley Referred To Contact Diagnoses Decreased hearing of both ears Procedures Hearing Evaluation (Audiology) Yoanna Dorsey, GLOBAL MARKETING OPERATIONS MANAGER-DEAN OF FACULTY [address] [place] [address] Referral ID Status Reason Start Date Expiration Date V isits Requested Visits Authorized [id number] Pending Review 01/07/2024 01/06/2025 1 1 Additional Source Comments INFORMATION SOURCE (unrecogn ized section and content) DATE CREATED AUTHOR 05/13/2018 [facility] DATE CREATED AUTHOR AUTHOR'S ORGANIZ ATION 05/16/2018 [facility] DATE CREATED AUTHOR AUTHOR'S ORGANIZ ATION 06/21/2019 [facility] DATE CREATED AUTHOR AUTHOR'S ORGANIZ ATION 11/13/2022 [facility] DATE CREATED AUTHOR AUTHOR'S ORGANIZ ATION 12/07/2022 [facility] dical Specialist DATE CREATED AUTHOR AUTHOR'S ORGANIZ ATION 12/04/2023 [facility] DATE CREATED AUTHOR AUTHOR'S ORGANIZ ATION 01/09/2024 [facility] DATE CREATED AUTHOR AUTHOR'S ORGANIZ ATION 01/18/2024 [facility] DATE CREATED AUTHOR AUTHOR'S ORGANIZ ATION 01/20/2024 [facility] dical Specialists EPIC DATE CREATED AUTHOR AUTHOR'S ORGANIZ ATION 01/21/2024 [facility] Reason for Visit (unrecogniz ed section and content) Reason Onset Date Comments Med Refill 12/13/2023 Specialty Diagnoses / Procedures Referred By Violette staley Referred To Contact Physical Therapy Diagnoses Muscle weakness (generalized) Procedures TREATMENT Bia Cao MD [address] [place] [address] Elmer Pettit, PT [address] [place] [address] Referral ID Status Reason Start Date Expiration Date V isits Requested Visits Authorized [id number] Authorized 12/08/2023 06/05/2024 99 99 Reason Comments Med Refill Care Teams (unrecognized sec tion and content) Manager Agricultural Relationship Specialty Start Date End Date Bia Cao MD [address] [place] [address] PCP - General Family Medicine 02/05/23 Manager Agricultural Relationship Specialty Start Date End Date Jacob Viveros PCP - [employer] 11/22/22 Bia Cao MD [address] [place] [address] PCP - General Family Medicine 04/29/23 Manager Agricultural Relationship Specialty Start Date End Date Jacob Viveros PCP - [employer] 11/22/22 Bia Cao MD [address] [place] [address] PCP - General Family Medicine 04/29/23 Manager Agricultural Relationship Specialty Start Date End Date Jacob Viveros PCP - [employer] 11/22/22 Bia Cao MD [address] [place] [address] PCP - General Family Medicine 04/29/23 Manager Agricultural Relationship Specialty Start Date End Date Jacob Viveros PCP - [employer] 11/22/22 Bia Cao MD [address] [place] [address] PCP - General Family Medicine 04/29/23 Manager Agricultural Relationship Specialty Start Date End Date Jacob Viveros PCP - [employer] 11/22/22 Bia Cao MD [address] [facility] [place] [address] PCP - General Family Medicine 04/29/23 Manager Agricultural Relationship Specialty Start Date End Date Jacob Viveros PCP - [employer] 11/22/22 Bia Cao MD [address] [place] [address] PCP - General Family Medicine 04/29/23 Manager Agricultural Relationship Specialty Start Date End Date Bia Cao MD [address] [facility] [place] [address] PCP - General Family Medicine 02/05/23 FOR [...] BE BASED ON THE PRIMARY CLINICAL RECORDS. [employer] [facility]. provides no warranty or guarantee of the accuracy or completeness of information in this document.
--- NOTE | 2024-01-26 12:33 | P.CN_ITS ---
Consult Note: HPI Data of Consult Patient: known to practice within the last 3 years Requesting Physician: Nias Galarza NP Primary Care Provider: TRUE DAVIS Consult Narrative Reason for consult: f/u Narrative: Angela Ruth a pleasant 78 year old female presents for evaluation and management of chronic neck pain. Patient reports pain today 4/10 ache in right side of neck, pain increases to 8/10 with activity, twisting, bending, lifting, pain improved with lying down. Patient denies numbness tingling and weakness. Patient finds mild to moderate benefit from current medication regimen, without side effects, but continues to have moderate to severe pain impacting ADLs. MAGNO today 36% The patient had significant relief of over 80%, with increased range of motion, decreased pain with provocative maneuvers, and increased ability to perform ADLs after diagnostic right C2-3 C3-4 MBB block #1.?? cc:: CC: Nisa Galarza NP Review of Systems ROS Status of ROS 10 or more systems reviewed and unremark able except as noted in history and below Musculoskeletal Reports: back pain and neck pain PFSH PFSH Medical History TMJ (dislocation of temporomandibular joint) ?S03.00XA - Dislocation of jaw, unspecified side, initial encounter (ICD-10) Neck pain ?M54.2 - Cervicalgia (ICD-10) Back pain ?M54.9 - Dorsalgia, unspecified (ICD-10) Osteoarthritis ?M19.90 - Unspecified osteoarthritis, unspecified site (ICD-10) H/O psychiatric care ?Z92.89 - Personal history of other medical treatment (ICD-10) Heartburn ?R12 - Heartburn (ICD-10) Acid reflux ?K21.9 - Gastro-esophageal reflux disease without esophagitis (ICD-10) Hypothyroid ?E03.9 - Hypothyroidism, unspecified (ICD-10) Kidney stones ?N20.0 - Calculus of kidney (ICD-10) Asthma ?J45.909 - Unspecified asthma, uncomplicated (ICD-10) High cholesterol ?E78.00 - Pure hypercholesterolemia, unspecified (ICD-10) Hypertension ?I10 - Essential (primary) hypertension (ICD-10) Surgical History H/O shoulder surgery ?Z98.890 - Other specified postprocedural states (ICD-10) H/O excision of hemangioma ?Z98.890 - Other specified postprocedural states (ICD-10) ?Z86.018 - Personal history of other benign neoplasm (ICD-10) H/O basal cell carcinoma excision ?Z98.890 - Other specified postprocedural states (ICD-10) ?Z85.828 - Personal history of other malignant neoplasm of skin (ICD-10) H/O lumbosacral spine surgery ?Z98.890 - Other specified postprocedural states (ICD-10) H/O foot surgery ?Z98.890 - Other specified postprocedural states (ICD-10) H/O hand surgery ?Z98.890 - Other specified postprocedural states (ICD-10) H/O wrist surgery ?Z98.890 - Other specified postprocedural states (ICD-10) History of cholecystectomy ?Z90.49 - Acquired absence of other specified parts of digestive tract (ICD- 10) H/O breast biopsy ?Z98.890 - Other specified postprocedural states (ICD-10) History of appendectomy ?Z90.49 - Acquired absence of other specified parts of digestive tract (ICD- 10) History of tonsillectomy and adenoidectomy ?Z90.89 - Acquired absence of other organs (ICD-10) Meds Home Medications and Allergies Home Medications Medication Instructions Recorded Confirmed Type acetaminophen 650 mg 1,300 mg PO Q8H PRN pain 07/07/23 01/10/24 History tablet,extended release (Arthritis Pain Relief (acetaminophen) ER) albuterol 90 mcg/actuation aerosol 90 mcg inhalation .every 4 hours 07/07/23 01/10/24 History inhaler PRN shortness of breath or wheezing alendronate 35 mg tablet 35 mg PO QWEEK 07/07/23 01/10/24 History amitriptyline 50 mg tablet 50 mg PO DAILY 07/07/23 01/10/24 History ascorbic acid (vitamin C) 500 mg 500 mg PO BID 07/07/23 01/10/24 History tablet,extended release (C Complex) aspirin 81 mg tablet,delayed 81 mg PO DAILY 07/07/23 01/10/24 History release (Adult Aspirin Regimen) atorvastatin 40 mg tablet 40 mg PO DAILY 07/07/23 01/10/24 History calcium carbonate 600 mg calcium 600 mg PO DAILY 07/07/23 01/10/24 History (1,500 mg) tablet (Calcium) carvedilol 25 mg tablet 25 mg PO BID 07/07/23 01/10/24 History cholecalciferol (vitamin D3) 50 200 mcg PO DAILY 07/07/23 01/10/24 History mcg (2,000 unit) tablet (Vitamin D3) escitalopram oxalate 20 mg tablet 20 mg PO DAILY 07/07/23 01/10/24 History famotidine 20 mg tablet 20 mg PO DAILY 07/07/23 01/10/24 History fenofibrate 160 mg tablet 160 mg PO DAILY 07/07/23 01/10/24 History fexofenadine 180 mg tablet 180 mg PO DAILY 07/07/23 01/10/24 History hydralazine 100 mg tablet 100 mg PO TID 07/07/23 01/10/24 History cdnxpqssctmhy-ziuferovhmgfz-jjdbskjcfykwz 2 cap PO 07/07/23 History 65 mg-100 mg-325 mg capsule levothyroxine 150 mcg capsule 150 mcg PO DAILY 07/07/23 01/10/24 History lisinopril 20 1 tab PO DAILY 07/07/23 01/10/24 History mg-hydrochlorothiazide 12.5 mg tablet magnesium 250 mg tablet 250 mg PO DAILY 07/07/23 01/10/24 History gksvgohb-oan-mbbmq acid 0.4 1 tab PO DAILY 07/07/23 01/10/24 History mg-lycopene 300 mcg-lutein 250 mcg tablet (Centrum Silver) omeprazole 40 mg capsule,delayed 40 mg PO DAILY 07/07/23 01/10/24 History release oxybutynin chloride 10 mg 10 mg PO DAILY 07/07/23 01/10/24 History tablet,extended release 24 hr tizanidine 4 mg tablet 4 mg PO BID PRN muscle spasticity 07/07/23 01/10/24 History buprenorphine 7.5 mcg/hour weekly 1 patch transdermal Q7D #4 ea 07/19/23 09/06/23 Rx transdermal patch (Butrans) buprenorphine 7.5 mcg/hour weekly 1 patch transdermal QWEEK #4 ea 07/19/23 01/10/24 Rx transdermal patch (Butrans) buprenorphine 7.5 mcg/hour weekly 1 patch transdermal Q7D #4 ea 08/24/23 09/06/23 Rx transdermal patch (Butrans) buprenorphine 7.5 mcg/hour weekly 1 patch transdermal Q7D #4 ea 09/29/23 Rx transdermal patch (Butrans) buprenorphine 7.5 mcg/hour weekly 1 patch transdermal Q7D #4 ea 11/02/23 Rx transdermal patch (Butrans) buprenorphine 7.5 mcg/hour weekly 1 patch transdermal Q7D #4 ea 12/02/23 Rx transdermal patch (Butrans) buprenorphine 7.5 mcg/hour weekly 1 patch transdermal Q7D #4 ea 12/02/23 Rx transdermal patch (Butrans) buprenorphine 7.5 mcg/hour weekly 1 patch transdermal Q7D #4 ea 12/30/23 Rx transdermal patch (Butrans) Allergies Allergy/AdvReac Type Severity Reaction Status Date / Time adhesive tape Allergy Verified 01/10/24 08:17 Influenza Virus Vaccines Allergy Verified 01/10/24 08:17 lincomycin [From Lincocin] Allergy Verified 01/10/24 08:17 Penicillins Allergy Verified 01/10/24 08:17 Exam Constitutional Documenting provider has reviewed patient's vital signs: yes Common normals: no apparent distress, oriented x3, healthy appearing, alert and well nourished General appearance: cooperative HENMT Common normals: normocephalic, hearing grossly normal bilaterally and moist oral mucous membranes Head and scalp: normocephalic Eye Common normals: PERRL Pupil: PERRL Neck & C-Spine Common normals: full ROM General: normal visual inspection Cervical spine: cervical ROM abnormal and pain with cervical ROM Other: negative spurlings positive facet loading right c2-3 c3-4 pain with rotation and flexion strength 5/5 in BUE Chest Common normals: inspection of chest normal Respiratory Common normals: normal respiratory effort, no retractions and no use of accessory muscles Back & Pelvis Lumbar spine/lower back: ROM limited, pain with ROM and straight leg raise negative bilaterally Neuro Common normals: oriented x3, CN's II-XII intact bilaterally, moves all extremities, no focal motor deficits, no sensory deficits noted and deep tendon reflexes 2+ bilaterally Sensorium/orientation: alert Motor exam: strength 5/5 throughout and no movement abnormalities noted Psych Common normals: mental status grossly normal, thought process normal, cooperative, affect normal, speech normal and activity/motor behavior normal Speech: normal speech Thought process: normal thought process Results Additional Findings Additional findings: I have checked an [place] report on this patient today and there are no aberrancies noted in the prescribing history.?? A drug screen was completed and reviewed within the last year, and if there has not been a drug screen completed we ordered one today to monitor higher risk, state monitored pain medication use. As part of providing excellent, safe, comprehensive care, the following was c ompleted at our patient's visit: 1. A medication reconciliation and review to ensure accurate knowledge of current/active medications, including asking our patients to inform us about any oxda-ujo-xcoccda medications or herbal remedies/nutritional supplements/alternative remedies. 2. A review to specifically ensure our patients have had annual screening for: elevated body mass index (BMI), tobacco use, screening for depression, and screening for unhealthy alcohol use. When screening is concerning, patients are provided with education and the specific recommendation to discuss the concerning health issue and treatment options with their primary care provider. Assessment and Plan Assessment and Plan (1) Cervical spondylosis: Assessment and Plan: The patient has had over 3 months of moderate to severe neck pain with functional impairment and inadequate response to conservative care including NSAIDS (unless there are contraindication such as concurrent blood thinners), multiple oral or topical pain medications, and home exercise program/physical therapy.? Patient has completed >6 weeks of guided home exercise program and/or formal physical therapy program without relief of their symptoms.? I have reviewed the imaging of the neck and no red flags were identified.? The imaging reveals radiographic findings consistent with {[id number]}? We discussed the risks and benefits of the procedure with the patient, and we are NOT planning on using sedation as outlined in the guidelines from Medicare unless there is a documented reason that sedation would be strongly recommended.?? ?The procedure will be completed with fluoroscopic guidance.? (2) Chronic prescription opiate use: Assessment and Plan: I feel these medications are improving the patient's quality of life and allow them to tolerate activities of daily living as well as participate in recreational activity.? The patient does not report intolerable side effects. The patient is NOT opioid naive and non-pharmacologic and non-opioid treatment has failed to significantly relieve the patient's pain and improve functionality. The patient has a diagnosis that is related to a somatic or visceral pain etiology. ? ?? I reviewed with the patient the potential risks and side effects with the use of? opioid medications including but not limited to respiratory depression,? sedation, and even . I verified the patient has access to naloxone should? these effects occur. I advised the patient to avoid the use of any other? sedation substances including alcohol, THC, and benzodiazepines while? taking opioid medications due to the risk of compounding side effects and? detrimental outcomes. I reviewed the CARE MANAGEMENT ASSISTANT, pain treatment agreement, urine? drug screen, and opioid start talking forms. The patient was advised to let? their family know they had Naloxone in case they would need to administer? the medication.? ?? A drug screen was completed within the last year, and no aberrancies were noted regarding their use of controlled substances. The patient understands they are subject to the terms and conditions of the pain contract that they have signed. ? ?? I have checked an [place] report on this patient today and there are no aberra ncies noted in the prescribing history.? (3) Muscle spasm: (4) Osteoarthritis of right hip: (5) Lumbar postlaminectomy syndrome: (6) Degenerative cervical disc: Plan right C2-3 C3-4 MBB x2 working towards thermal RFA patient has been negative for buprenorphine on a oral drug screen and urine drug screen. patient reports wearing the patch and changing every Wednesday. I did confirm location of patch today is left upper arm. will send patient to hospital for blood draw but patient should be positive. continue current medications, tolerating well without side effects continues to find benefit f/u 1 week after procedure
== END 2024-01-26 12:25 | disposition home or self-care (01) ==
LOC: PM 12:24
PROVIDERS: PCP Family Medicine; Visit Provider Nurse Practitioner
DX: M47.812 Spondylosis without myelopathy or radiculopathy, cervical region (principal); Z79.891 Long term (current) use of opiate analgesic; M62.838 Other muscle spasm; M16.11 Unilateral primary osteoarthritis, right hip; M96.1 Postlaminectomy syndrome, not elsewhere classified; M50.30 Other cervical disc degeneration, unspecified cervical region
CPT/HCPCS: G0463

== ENCOUNTER 2024-01-26 14:38 | Outpatient (OUT) | payer MEDICARE, SELFPAY | END 2024-01-26 14:39 | disposition home or self-care (01) | LOC: LAB 14:39 | PROVIDERS: PCP Family Medicine; Visit Provider Nurse Practitioner | DX: Z79.891 Long term (current) use of opiate analgesic (principal) | CPT/HCPCS: 36415; 80299 ==

== ENCOUNTER 2024-02-07 10:00 | Day surgery (SDC) | payer MEDICARE, SELFPAY ==
--- OUTSIDE RECORDS SUMMARY | 2024-02-07 10:13 | XMS_ITS | CCD ---
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 Phone KALIA GILL Unavailable Unavailable [...] Nash GARCIA, Bia Anny Primary Care Provider [phone] Jacob Viveros Unavailable Unavailable Nash GARCIA, [facility] Primary Care Provider [phone] YOANNA DORSEY Attending Unavailable NASH, BIA F Referring Unavailable NASH, BIA F Primary Care Unavailable JOHN JOHNSON Referring Unavailable NASH, BIA F Primary Care Unavailable YOANNA DORSEY Referring Unavailable NASH, BIA Mccormick Primary Care Unavailable NASH, BIA F Attending Unavailable NASH BIA F Attending Unavailable SANTO GARCIA Attending [...] adverse reactions to drug (disorder) 11-04-20 16 [facility] Repository (12 sources) aspartame; Translations: [ASPARTAME] Drug Allergy 02-13-20 17 Other (See Comments), Unknown [facility] Repository (12 sources) clavulanic acid; Translations: [CLAVULANIC ACID] Drug Allergy 02-13-20 17 Rash [facility] Repository (1 source) egg white (chicken) allergenic extract; Translations: [EGG WHITE] Drug Allergy 08-14-20 11 AOF [facility] Repository (12 sources) lincomycin; Translations: [LINCOMYCIN] Drug Allergy 08-14-20 11 Anaphylaxis, [facility] Repository (6 sources) Lincosamides (Antibiotic); Translations: [LINCOSAMIDES] Propensity to adverse reactions to drug (disorder) 02-13-20 17 Anaphylaxis [facility] Repository (6 sources) oxaprozin; Translations: [OXAPROZIN] Drug Allergy 11-04-20 16 Rash [facility] Repository (12 sources) Penicillins; Translations: [PENICILLINS] Propensity to adverse reactions to drug (disorder) 11-04-20 16 [facility] Repository (6 sources) INFLUENZA VIRUS VACCINES; Translations: [INFLUENZA VIRUS VACCINES] Propensity to adverse reactions to drug (disorder) 02-13-20 17 Swelling [facility] Repository (12 sources) CLEMIZOLE; Translations: [CLEMIZOLE] Propensity to adverse reactions to drug (disorder) 02-13-20 17 Rash [facility] Repository (12 sources) AMOXICILLIN-POT CLAVULANATE; Translations: [AMOXICILLIN-POT CLAVULANATE] Propensity to adverse reactions to drug (disorder) 08-14-20 11 Rash [facility] Repository (5 sources) chicken allergenic extract; Translations: [POULTRY] Drug Allergy 03-02-20 23 [facility] Repository (5 sources) egg shell membrane; Translations: [EGGSHELL MEMBRANE] Propensity to adverse reactions to food (disorder) 11-04-20 16 [facility] Repository (11 sources) Indomethacin; Translations: [INDOMETHACIN] Drug Allergy 05-02-20 21 Hypotension, Unknown [facility] Repository (11 sources) Sulfamethoxazole / Trimethoprim; Translations: [SULFAMETHOXAZOLE-T RIMETHOPRIM] Drug Allergy 10-22-20 23 [facility] Repository (5 sources) Sulfonamides (Antibiotic); Translations: [SULFA (SULFONAMIDE ANTIBIOTICS)] Propensity to adverse reactions to drug (disorder) 11-11-20 22 [facility] Repository (11 sources) OTHER; Translations: [OTHER] Propensity to adverse reactions (disorder) 02-13-20 17 Other (See Comments), Swelling [facility] Repository (6 sources) Influenza Vaccines Drug Allergy 06-04-[address] [facility] (6 sources) Lincomycin Drug Allergy 12-01-19 22 Unknown [facility] (6 sources) Sulfonamides (Antibiotic) Drug Intolerance 11-11-20 22 [facility] (6 sources) Eggs Or Egg-Derived Products Drug Allergy 08-14-20 11 Swelling, Unknown [facility] (6 sources) Poultry Meal Propensity to adverse reactions 03-02-20 23 [facility] (6 sources) Wound Dressing Adhesive Drug Allergy 06-04-[address] [facility] Medications Current Medications Medication Drug Class(es) Dates [...] a week. 20 tablet 2 04/23/2023 Active [id number] 200 actuat albuterol 0.09 mg/actuat metered dose [...] 01-11-20 ABSOLUTE BASOPHIL 0.1 X10E9/L Normal 0.0-0.2 [facility] Comment on above: Performed By: #### 1 3965-9, CBCA, FEPR, THYR, 2276-4, 2132-07, 2284-06, IMEL, SPE #### [facility] ([id number]) [address] [place] [address], [address] [place] [address] #### MTHFRS #### [facility] ([id number]) [address] [place] [address], [place] [address] ABSOLUTE NEUTROPHIL 2.4 X10E9/L Normal 1.5-6.6 [facility] Comment on above: Performed By: #### 1 3965-9, CBCA, FEPR, THYR, 6-4, 9, 8, IMEL, SPE #### [facility] ([id number]) [address] [facility], [address] [place] [address] #### MTHFRS #### [facility] ([id number]) [address] [place] [address] Basophils/100 WBC (Bld) 1.4 % Normal [facility] Comment on above: Performed By: #### 1 3965-9, CBCA, FEPR, THYR, 2276-4, 2131-9, 4-8, IMEL, SPE #### [facility] ([id number]) [address] [facility], [address] [place] [address] #### MTHFRS #### [facility] ([id number]) [address] [place] [address] Eosinophils (Bld) [#/Vol] 0.1 10*3/uL Normal 0.0-0.4 [facility] Comment on above: Performed By: #### 1 3965-9, CBCA, FEPR, THYR, 6-4, 2131-9, 4-8, IMEL, SPE #### [facility] ([id number]) [address] [facility], [address] [place] [address] #### MTHFRS #### [facility] ([id number]) [address] [place] [address] Eosinophils/100 WBC (Bld) 2.8 % Normal [facility] Comment on above: Performed By: #### 1 3965-9, CBCA, FEPR, THYR, 6-4, 9, 2283-8, IMEL, SPE #### [facility] ([id number]) [address] [facility], [address] [place] [address] #### MTHFRS #### [facility] ([id number]) [address] [place] [address] Erythrocyte distribution width (RBC) [Ratio] 15.5 % High 11.5-15.0 [facility] Comment on above: Performed By: #### 1 3965-9, CBCA, FEPR, THYR, 6-, 2132-07, 2284-06, IMEL, SPE #### [facility] ([id number]) [address], [address] [place] [address] #### MTHFRS #### [facility] ([id number]) [address] [place] [address] Hematocrit (Bld) [Volume fraction] 38.4 % Normal 35-47 [facility] Comment on above: Performed By: #### 1 3965-9, CBCA, FEPR, THYR, 2276-02, 2132-07, 2284-06, IMEL, SPE #### [facility] ([id number]) [address], [address] [place] [address] #### MTHFRS #### [facility] ([id number]) [address] [place] [address] Hemoglobin (Bld) [Mass/Vol] 12.5 g/dL Normal 11.7-15.5 [facility] Comment on above: Performed By: #### 1 3965-9, CBCA, FEPR, THYR, 2276-02, 2132-07, 2284-06, IMEL, SPE #### [facility] ([id number]) [address], [address] [place] [address] #### MTHFRS #### [facility] ([id number]) [address] [place] [address] Lymphocytes (Bld) [#/Vol] 1.7 10*3/uL Normal 1.0-3.5 [facility] Comment on above: Performed By: #### 1 3965-9, CBCA, FEPR, THYR, 2275-, 2132-07, 2284-8, IMEL, SPE #### [facility] ([id number]) [address], [address] [place] [address] #### MTHFRS #### [facility] ([id number]) [address] [place] [address] Lymphocytes/100 WBC (Bld) 35.8 % Normal [facility] Comment on above: Performed By: #### 1 3965-9, CBCA, FEPR, THYR, 6-4, 2131-9, 2283-8, IMEL, SPE #### [facility] ([id number]) [address], [address] [place] [address] #### MTHFRS #### [facility] ([id number]) [address] [place] [address] MCH (RBC) [Entitic mass] 28.5 pg Normal 27-34 [facility] Comment on above: Performed By: #### 1 3965-9, CBCA, FEPR, THYR, 6-4, 2131-9, 8, IMEL, SPE #### [facility] ([id number]) [address], [address] [place] [address] #### MTHFRS #### [facility] ([id number]) [address] [place] [address] 25569 MCHC (RBC) [Mass/Vol] 32.7 g/dL Normal 32-36 [facility] Comment on above: Performed By: #### 1 3965-9, CBCA, FEPR, THYR, 6-4, 2131-9, 8, IMEL, SPE #### [facility] ([id number]) [address], [address] [place] [address] #### MTHFRS #### [facility] ([id number]) [address] [place] [address] MCV (RBC) [Entitic vol] 87 fL Normal 80-100 [facility] Comment on above: Performed By: #### 1 3965-9, CBCA, FEPR, THYR, 6-4, 9, 2283-8, IMEL, SPE #### [facility] ([id number]) [address], [address] [place] [address] #### MTHFRS #### [facility] ([id number]) [address] [place] [address] Monocytes (Bld) [#/Vol] 0.5 10*3/uL Normal 0-0.9 [facility] Comment on above: Performed By: #### 1 3965-9, CBCA, FEPR, THYR, 6-4, 2132-07, 2284-06, IMEL, SPE #### [facility] ([id number]) [address], [address] [place] [address] #### MTHFRS #### [facility] ([id number]) [address] [place] [address] Monocytes/100 WBC (Bld) 10.0 % Normal [facility] Comment on above: Performed By: #### 1 3965-9, CBCA, FEPR, THYR, 2275-, 2132-07, 2284-06, IMEL, SPE #### [facility] ([id number]) [address], [address] [place] [address] #### MTHFRS #### [facility] ([id number]) [address] [place] [address] 28263 Neutrophils/100 WBC (Bld) 50.0 % Normal [facility] Comment on above: Performed By: #### 1 3965-9, CBCA, FEPR, THYR, 6-, 2132-07, 2284-06, IMEL, SPE #### [facility] ([id number]) [address], [address] [place] [address] #### MTHFRS #### [facility] ([id number]) [address] [place] [address] Platelet mean volume (Bld) [Entitic vol] 9.6 fL Normal 7-12 [facility] Comment on above: Performed By: #### 1 3965-9, CBCA, FEPR, THYR, 2276-4, 2131-9, 2284-8, IMEL, SPE #### [facility] ([id number]) [address], [address] [place] [address] #### MTHFRS #### [facility] ([id number]) [address] [place] [address]358 Platelets (Bld) [#/Vol] 194 10*3/uL Normal 150-450 [facility] Comment on above: Performed By: #### 1 3965-9, CBCA, FEPR, THYR, 2276-4, 2131-9, 2283-8, IMEL, SPE #### [facility] ([id number]) [address], [address] [place] [address] #### MTHFRS #### [facility] ([id number]) [address] [place] [address] 40773 RBC COUNT 4.41 X10E12/L Normal 3.80-5.20 [facility] Comment on above: Performed By: #### 1 3965-9, CBCA, FEPR, THYR, 2276-4, 2131-9, 2284-8, IMEL, SPE #### [facility] ([id number]) [address], [address] [place] [address] #### MTHFRS #### [facility] ([id number]) [address] [place] [address]60 WBC (Bld) [#/Vol] 4.9 10*3/uL Normal 4.0-11.0 [facility] Comment on above: Performed By: #### 1 3965-9, CBCA, FEPR, THYR, 2276-4, 2132-9, 2284-8, IMEL, SPE #### [facility] ([id number]) [address] [place] [address], [address] [place] [address] #### MTHFRS #### [facility] ([id number]) [address] [place] [address] Clinical Pathologyon 024 Clinical Pathology Normal [facility] Comment on above: Result Comment: [facility] [facility] [address] [place] [address] Clinical Pathology Report Patient Name:ANGELA RUTH:1945 (Age: 78)Gender:FTaken:4Reported:01/14/2024hysician(s):MARCE Rayo ([phone])Copy To: Rec. #:[id number]: #[id number] Final Pathologic Diagnosis No monoclonal protein identified. Report Electronically Signed Out sb/01/12/2024duncan Alamo MD Interpretation [place] [address], License number: [id number]. Clinical History G25.0, R26.89, G62.9, R79.0. SERUM IEP SAMPLE NUMBER: [id number] IMMUNOGLOBULIN LEVELS (mg/dL): IgG : 652 IgA : 225 IgM : 64 [place]: 3.45 Free Lambda: 2.10 [place]/Lambda ratio: 1.64 Specimen(s) Received Serum IEP Fee Codes(s): 1; 16045-31 FERRITINon 01-11-2024 Ferritin [Mass/Vol] 47 ng/mL Normal 11-307 [facility] Comment on above: Performed By: #### 1 3965-9, CBCA, FEPR, THYR, 2276-4, 2-9, 2284-8, IMEL, SPE #### [facility] ([id number]) [address], [address] [place] [address] #### MTHFRS #### [facility] ([id number]) [address] [place] [address] Folate [Mass/Vol]on 01-11-20 FOLIC ACID >25.0 Normal >5.8 [facility] Comment on above: Result Comment: NEW REFERENCE RANGE Performed By: #### 1 3965-9, CBCA, FEPR, THYR, 2276-4, 2131-9, 2284-8, IMEL, SPE #### [facility] ([id number]) [address] [facility], [address] [place] [address] #### MTHFRS #### [facility] ([id number]) [address] [place] [address] HGB A1C (GLYCO-HGB)on 2023 Glucose [Mass/Vol] 108 mg/dL Normal [facility] Comment on above: Performed By: #### 1 3965-9, CBCA, FEPR, THYR, 6-4, 2131-9, 2284-8, IMEL, SPE #### [facility] ([id number]) [address], [address] [place] [address] #### MTHFRS #### [facility] ([id number]) [address] [place] [address] HbA1c (Bld) [Mass fraction] 5.4 % Normal 4.4-5.6 [facility] Comment on above: Result Comment: NOTE ADA [...] THYR, 2276-4, 2131-9, 4-8, IMEL, SPE #### [facility] ([id number]) [address] [place] [address], [address] [address] #### MTHFRS #### [facility] ([id number]) [address] [place] [address] Homocysteine [Moles/Vol]on 0 01-11-2024 HOMOCYSTEINE 14.23 mcmol/L Normal 3.36-20.44 [facility] Comment on above: Performed By: #### 1 3965-9, CBCA, FEPR, THYR, 6-4, 2132-07, 2284-06, IMEL, SPE #### [facility] ([id number]) [address] [place] [address] #### MTHFRS #### [facility] ([id number]) [address] [place] [address] IMMUNOELECTROPHORESIS FOR TH ERAPY MONITORINGon 01-11-2024 FREE IRASEMA/LAMBD RATIO 1.64 Normal 0.26-1.65 [facility] Comment on above: Performed By: #### 1 3965-9, CBCA, FEPR, THYR, 2276-4, 9, 8, IMEL, SPE #### [facility] ([id number]) [address] [place] [address] #### MTHFRS #### [facility] ([id number]) [address] [place] [address] FREE KAPPA LT CHAINS 3.45 mg/dL High 0.33-1.94 [facility] Comment on above: Performed By: #### 1 3965-9, CBCA, FEPR, THYR, 2276-4, 2131-9, 2284-8, IMEL, SPE #### [facility] ([id number]) [address] [facility], [address] [place] [address] #### MTHFRS #### [facility] ([id number]) [address] [place] [address] FREE LAMBDA LT CHAINS 2.10 mg/dL Normal 0.57-2.63 [facility] Comment on above: Performed By: #### 1 3965-9, CBCA, FEPR, THYR, 6-4, 9, 4-8, IMEL, SPE #### [facility] ([id number]) [address] [facility], [address] [place] [address] #### MTHFRS #### [facility] ([id number]) [address] [place] [address] 14413 IgA [Mass/Vol] 225 mg/dL Normal 68-378 [facility] Comment on above: Performed By: #### 1 3965-9, CBCA, FEPR, THYR, 6-4, 2131-9, 4-8, IMEL, SPE #### [facility] ([id number]) [address], [address] [place] [address] #### MTHFRS #### [facility] ([id number]) [address] [place] [address]106 IgG [Mass/Vol] 652 mg/dL Normal 635-1741 [facility] Comment on above: Performed By: #### 1 3965-9, CBCA, FEPR, THYR, 2276-4, 2-9, 2284-8, IMEL, SPE #### [facility] ([id number]) [address], [address] [place] [address] #### MTHFRS #### [facility] ([id number]) [address] [place] [address] 11757 IgM [Mass/Vol] 64 mg/dL Normal 45-281 [facility] Comment on above: Performed By: #### 1 3965-9, CBCA, FEPR, THYR, 2276-4, 2-9, 2284-8, IMEL, SPE #### [facility] ([id number]) [address] [facility], [address] [place] [address] #### MTHFRS #### [facility] ([id number]) [address] [place] [address] IMMUNE PROFILE INTERP SEE SEPARATE REPORT Normal [facility] Comment on above: Performed By: #### 1 3965-9, CBCA, FEPR, THYR, 2276-4, 2-9, 2284-8, IMEL, SPE #### [facility] ([id number]) [address] [facility], [address] [place] [address] #### MTHFRS #### [facility] ([id number]) [address] [place] [address] 26245 IRON PROFILEon 01-11-2024 Iron [Mass/Vol] 100 ug/dL Normal 50-170 [facility] Comment on above: Performed By: #### 1 3965-9, CBCA, FEPR, THYR, 2276-4, 2-9, 2284-8, IMEL, SPE #### [facility] ([id number]) [address] [place] [address] [address] [place] [address] #### MTHFRS #### [facility] ([id number]) [address] [place] [address] IRON BINDING 438 ug/dL High 250-425 [facility] Comment on above: Performed By: #### 1 3965-9, CBCA, FEPR, THYR, 2276-4, 2132-9, 2284-8, IMEL, SPE #### [facility] ([id number]) [address] [facility], [address] [place] [address] #### MTHFRS #### [facility] ([id number]) [address] [place] [address] IRON SATURATION 23 % SATURATION Normal 15-50 [facility] Comment on above: Performed By: #### 1 3965-9, CBCA, FEPR, THYR, 2276-4, 2-9, 2284-8, IMEL, SPE #### [facility] ([id number]) [address] [facility], [address] [place] [address] #### MTHFRS #### [facility] ([id number]) [address] [place] [address] MTHFRon 01-11-2024 MTHFR INTERPRETATION SEE NOTE Normal [facility] Comment on above: Result Comment: NOTE Indication for testing: Determine genetic contribution to hyperhomocysteinemia. Negative: Neither of the common MTHFR gene variants tested, c.665C>T (previously designated C677T) and c.1286A>C (previously designated W7608Y), were detected. Other causes of elevated homocysteine [...] has an effect on cardiovascular disease. The [place] [employer] Practice Guidelines indicate [...] a contributing factor to hyperhomocysteinemia. Variants Tested: c.665C>T(p.Ugb940Uii) and c.1286A>C(p.Fub843Jab). (legacy names C677T and Y0590U, respectively). Clinical Sensitivity: Undefined; hyperhomocysteinemia is caused [...] developed and its performance characteristics determined by [facility]. It has not been cleared or approved by the [place] Food and Drug Administration. This test was performed in a CLIA certified laboratory and is intended for clinical purposes. Counseling and informed consent are recommended for genetic testing. Consent forms are available online. Performed By: [facility] [address] [place] [address] Livestock Rancher: Jacob Sparks MD, PhD [place] Number: [id number] Performed By: #### 1 3965-9, CBCA, FEPR, THYR, 2276-4, 2132-07, 2284-06, JOSHUA GONZALEZ #### [facility] ([id number]) [address] [place] [address], [address] [place] [address] #### MTHFRS #### [facility] ([id number]) [address] [place] [address], [place] [address] MTHFR MUT L1516TI Negative Normal [facility] Comment on above: Performed By: #### 1 3965-9, CBCA, FEPR, THYR, 2276-4, 2132-07, 2284-06, CARLOS SPE #### [facility] ([id number]) [address] [place] [address], [address] [place] [address] #### MTHFRS #### [facility] ([id number]) [address] [place] [address] MTHFR MUT C665CT Negative Normal [facility] Comment on above: Performed By: #### 1 3965-9, CBCA, FEPR, THYR, 2276-4, 2-9, 2284-8, IMEL, SPE #### [facility] ([id number]) [address] [place] [address], [address] [place] [address] #### MTHFRS #### [facility] ([id number]) [address] [place] [address] MTHFR PCR SPECIMEN WHOLE BLOOD Normal [facility] Comment on above: Performed By: #### 1 3965-9, CBCA, FEPR, THYR, 6-4, 2131-9, 4-8, IMEL, SPE #### [facility] ([id number]) [address] [place] [address], [address] [place] [address] #### MTHFRS #### [facility] ([id number]) [address] [place] [address] Methylmalonate [Moles/Vol]on 01-11-2024 MMA QN 0.14 umol/L Normal <=0.40 [facility] Comment on above: Result Comment: NOTE This test was developed and its performance characteristics determined by [facility] [place] [facility] It has not been cleared or approved by the FDA. [facility] is regulated under CLIA as qualified to perform high-complexity testing. This test is used for clinical purposes. It should not be regarded as investigational or for research. Test Performed By: [facility] [address] [place] [address] Livestock Rancher: Berry Larsen III, M.D. CLIA #[id number] Performed By: #### 1 3965-9, CBCA, FEPR, THYR, 2276-4, 2-9, 2284-8, IMEL, SPE #### [facility] ([id number]) [address], [address] [place] [address] #### MTHFRS #### [facility] ([id number]) [address] [place] [address] SERUM PROTEIN ELECTROPHORESI Son 01-11-2024 Albumin [Mass/Vol] 4.0 g/dL Normal 3.4-5.3 [facility] Comment on above: Performed By: #### 1 3965-9, CBCA, FEPR, THYR, 6-4, 2131-9, 4-8, IMEL, SPE #### [facility] ([id number]) [address], [address] [place] [address] #### MTHFRS #### [facility] ([id number]) [address] [place] [address] ALPHA 1 GLOBULIN 0.3 g/dL Normal 0.1-0.4 [facility] Comment on above: Performed By: #### 1 3965-9, CBCA, FEPR, THYR, 2276-4, 2131-9, 4-8, IMEL, SPE #### [facility] ([id number]) [address], [address] [place] [address] #### MTHFRS #### [facility] ([id number]) [address] [place] [address] ALPHA 2 GLOBULIN 0.8 g/dL Normal 0.4-1.1 [facility] Comment on above: Performed By: #### 1 3965-9, CBCA, FEPR, THYR, 2276-4, 2-9, 2284-8, IMEL, SPE #### [facility] ([id number]) [address], [address] [place] [address] #### MTHFRS #### [facility] ([id number]) [address] [place] [address] BETA GLOBULIN 0.8 g/dL Normal 0.5-1.2 [facility] Comment on above: Performed By: #### 1 3965-9, CBCA, FEPR, THYR, 2276-4, 2132-9, 2284-8, IMEL, SPE #### [facility] ([id number]) [address], [address] [place] [address] #### MTHFRS #### [facility] ([id number]) [address] [place] [address] GAMMA GLOBULIN 0.7 g/dL Normal 0.5-1.6 [facility] Comment on above: Performed By: #### 1 3965-9, CBCA, FEPR, THYR, 2276-4, 2-9, 2284-8, IMEL, SPE #### [facility] ([id number]) [address], [address] [place] [address] #### MTHFRS #### [facility] ([id number]) [address] [place] [address] PROT. ELECTROPHORESIS INTERP Unremarkable protein distribution, no monoclonal bands. Normal [facility] Comment on above: Performed By: #### 1 3965-9, CBCA, FEPR, THYR, 2276-4, 2131-9, 4-8, IMEL, SPE #### [facility] ([id number]) [address], [address] [place] [address] #### MTHFRS #### [facility] ([id number]) [address] [place] [address] Protein [Mass/Vol] 6.5 g/dL Normal 6.0-8.0 [facility] Comment on above: Performed By: #### 1 3965-9, CBCA, FEPR, THYR, 2276-4, 2132-9, 2284-8, IMEL, SPE #### [facility] ([id number]) [address], [address] [place] [address] #### MTHFRS #### [facility] ([id number]) [address] [place] [address] THYROID PROFILEon 01-11-2024 Free T4 [Mass/Vol] 1.09 ng/dL Normal 0.61-1.60 [facility] Comment on above: Performed By: #### 1 3965-9, CBCA, FEPR, THYR, 2276-4, 2131-9, 4-8, IMEL, SPE #### [facility] ([id number]) [address], [address] [place] [address] #### MTHFRS #### [facility] ([id number]) [address] [place] [address] TSH 0.60 uIU/mL Normal 0.49-4.67 [facility] Comment on above: Performed By: #### 1 3965-9, CBCA, FEPR, THYR, 2276-4, 2-9, 4-8, IMEL, SPE #### [facility] ([id number]) [address], [address] [place] [address] #### MTHFRS #### [facility] ([id number]) [address] [place] [address] VITAMIN B12on 01-11-2024 Cobalamin (Vitamin B12) [Mass/Vol] 407 pg/mL Normal 180-914 [facility] Comment on above: Performed By: #### 1 3965-9, CBCA, FEPR, THYR, 2276-4, 2132-9, 2284-8, IMEL, SPE #### [facility] ([id number]) [address], [address] [place] [address] #### MTHFRS #### [facility] ([id number]) [address] [facility], [place] [address] DEXA SCAN CENTRAL SKELETALon 12-06-2023 DEXA SCAN [...] Ann MD on 12/06/2023 2:10 AM Normal [facility] CT Abdomen/Pelvis w + w/o Co ntraston [...] by Felix Dominguez on 12/07/2022 1159 Normal [facility] XR HAND LEFT (MIN 3 VIEWS)on [...] Matt Cowart MD 11/07/22 Final result Normal [facility] XR HAND LEFT (MIN 3 VIEWS) 3 [...] Matt Cowart MD 11/07/22 Final result Normal [facility] XR Chest 2 Views*on 09-10-20 XR Chest [...] by Bartolome Monson on 09/10/2022 1507 Normal [facility] Complete Blood Count with Au to Diffon 12-11-2021 Basophils (Bld) [#/Vol] 0.07 10*3/uL Normal 0.00-0.20 [facility] Comment on above: Performed By: #### C LG, CBCAD #### [facility] [address], [place] [id number] Basophils/100 WBC (Bld) 0.9 % Normal [facility] Comment on above: Performed By: #### C LG, CBCAD #### [facility] [address], [place] [id number] Eosinophils (Bld) [#/Vol] 0.17 10*3/uL Normal 0.02-0.50 [facility] Comment on above: Performed By: #### C LG, CBCAD #### [facility] [address], [place] [id number] Eosinophils/100 WBC (Bld) 2.3 % Normal [facility] Comment on above: Performed By: #### C LG, CBCAD #### [facility] [address], [place] [id number] Erythrocyte distribution width (RBC) [Ratio] 16.4 % High 11.0-15.0 [facility] Comment on above: Performed By: #### C LG, CBCAD #### [facility] [address], [place] [id number] Hematocrit (Bld) [Volume fraction] 42.9 % Normal 35.0-47.0 [facility] Comment on above: Performed By: #### C LG, CBCAD #### [facility] [address], [place] [id number] Hemoglobin (Bld) [Mass/Vol] 13.5 g/dL Normal 11.6-15.5 [facility] Comment on above: Performed By: #### C MP, CBCAD #### [facility] [address], [place] [id number] Lymphocytes (Bld) [#/Vol] 2.7 10*3/uL Normal 0.9-3.9 [facility] Comment on above: Performed By: #### C MP, CBCAD #### [facility] [address], [place] [id number] Lymphocytes/100 WBC (Bld) 36.1 % Normal [facility] Comment on above: Performed By: #### C MP, CBCAD #### [facility] [address], [place] [id number] MCH (RBC) [Entitic mass] 27.7 pg Normal 27.0-33.0 [facility] Comment on above: Performed By: #### C MP, CBCAD #### [facility] [address], [place] [id number] MCHC (RBC) [Mass/Vol] 31.5 g/dL Low 32.0-36.0 [facility] Comment on above: Performed By: #### C MP, CBCAD #### [facility] [address], [place] [id number] MCV (RBC) [Entitic vol] 88 fL Normal 80-100 [facility] Comment on above: Performed By: #### C MP, CBCAD #### [facility] [address], [place] [id number] Monocytes (Bld) [#/Vol] 0.8 10*3/uL Normal 0.2-0.9 [facility] Comment on above: Performed By: #### C MP, CBCAD #### [facility] [address], [place] [id number] Monocytes/100 WBC (Bld) 10.8 % Normal [facility] Comment on above: Performed By: #### C MP, CBCAD #### [facility] [address], [place] [id number] Neutrophils (Bld) [#/Vol] 3.7 10*3/uL Normal 1.5-7.8 [facility] Comment on above: Performed By: #### C MP, CBCAD #### [facility] [address], [place] [id number] Neutrophils/100 WBC (Bld) 49.2 % Normal [facility] Comment on above: Performed By: #### C MP, CBCAD #### [facility] [address], [place] [id number] Platelet mean volume (Bld) [Entitic vol] 11.00 fL Normal 7.50-12.50 [facility] Comment on above: Performed By: #### C MP, CBCAD #### [facility] [address], [place] [id number] Platelets (Bld) [#/Vol] 246 10*3/uL Normal 140-400 [facility] Comment on above: Performed By: #### C MP, CBCAD #### [facility] [address], [place] [id number] RBC (Bld) [#/Vol] 4.88 10*6/uL Normal 3.90-5.20 [facility] Comment on above: Performed By: #### C MP, CBCAD #### [facility] [address], [place] [id number] RDW-SD 53.1 fL High 37.0-50.0 [facility] Comment on above: Performed By: #### C MP, CBCAD #### [facility] [address], [place] [id number] WBC (Bld) [#/Vol] 7.5 10*3/uL Normal 3.8-11.0 [facility] Comment on above: Performed By: #### C MP, CBCAD #### [facility] [address], [place] [id number] Comprehensive Metabolic Pane [facility] 12-11-2021 Albumin [Mass/Vol] 4.2 g/dL Normal 3.6-5.[address] [facility] Comment on above: Performed By: #### C MP, CBCAD #### [facility] [address], [place] [id number] Albumin/Globulin [Mass ratio] 1.7 {ratio} Normal 1.0-2.5 [facility] Comment on above: Performed By: #### C MP, CBCAD #### [facility] [address], [place] [id number] ALP [Catalytic activity/Vol] 71 U/L Normal 35-119 [facility] Comment on above: Performed By: #### C MP, CBCAD #### [facility] [address], [place] [id number] ALT [Catalytic activity/Vol] 12 U/L Normal 6-33 [facility] Comment on above: Result Comment: 10/22 Female reference range changed. Performed By: #### C MP, CBCAD #### [facility] [address], [place] [id number] Anion gap [Moles/Vol] 18 mmol/L Normal 12-20 [facility] Comment on above: Result Comment: Effe ctive 11/27/2019 reference range changed. Performed By: #### C MP, CBCAD #### [facility] [address], [place] [id number] AST [Catalytic activity/Vol] 15 U/L Normal 9-34 [facility] Comment on above: Performed By: #### C MP, CBCAD #### [facility] [address], [place] [id number] Bilirubin [Mass/Vol] 0.33 mg/dL Normal 0.30-1.20 [facility] Comment on above: Performed By: #### C MP, CBCAD #### [facility] [address], [place] [id number] BUN/CREA 35 Ratio High 6-22 [facility] Comment on above: Performed By: #### C MP, CBCAD #### [facility] [address], [place] [id number] Calcium [Mass/Vol] 9.4 mg/dL Normal 8.6-10.2 [facility] Comment on above: Performed By: #### C MP, CBCAD #### [facility] [address], [place] [id number] Chloride [Moles/Vol] 106 mmol/L Normal 98-107 [facility] Comment on above: Performed By: #### C MP, CBCAD #### [facility] [address], [place] [id number] CO2 [Moles/Vol] 24 mmol/L Normal 20-31 [facility] Comment on above: Performed By: #### C MP, CBCAD #### [facility] [address], [place] [id number] Creatinine [Mass/Vol] 0.9 mg/dL Normal 0.6-1.4 [facility] Comment on above: Performed By: #### C MP, CBCAD #### [facility] [address], [place] [id number] eGFRAA 70 mL/min/1.73m2 Normal >60 [facility] Comment on above: Performed By: #### C MP, CBCAD #### [facility] [address], [place] [id number] eGFRNAA 58 mL/min/1.73m2 Low >60 [facility] Comment on above: Performed By: #### C MP, CBCAD #### [facility] [address], [place] [id number] Globulin (S) [Mass/Vol] 2.5 g/dL Normal 1.9-3.7 [facility] Comment on above: Performed By: #### C MP, CBCAD #### [facility] [address], [place] [id number] Glucose [Mass/Vol] 84 mg/dL Normal 65-99 [facility] Comment on above: Result Comment: For FASTING Glucose --- ADA reference ranges: Normal 65-99 mg/dl Prediabetes 100-125 Diabetes >/= 126 Performed By: #### C MP, CBCAD #### [facility] [address], [place] [id number] Potassium [Moles/Vol] 4.3 mmol/L Normal 3.5-5.5 [facility] Comment on above: Performed By: #### C MP, CBCAD #### [facility] [address], [place] [id number] Protein [Mass/Vol] 6.7 g/dL Normal 6.1-8.1 [employer] [place] [employer] [employer] Comment on above: Performed By: #### C MP, CBCAD #### [facility] [address], [place] [id number] Sodium [Moles/Vol] 143 mmol/L Normal 135-146 [employer] [place] [employer] [employer] Comment on above: Performed By: #### C MP, CBCAD #### [facility] [address], [place] [id number] Urea nitrogen [Mass/Vol] 33 mg/dL High 7-25 [facility] Comment on above: Performed By: #### C MP, CBCAD #### [facility] [address], [place] [id number] Calciumon 06-20-2019 Calcium [Mass/Vol] 10.0 mg/dL Normal 8.4-10.2 [facility] Comment on above: Performed By: #### 1 030, 1035, 4500, 4510, 4520, 4581 #### [facility] Unless Otherwise Noted [address] [address] / COLA #4724/CLIA # [id number] Creatinineon 06-20-2019 Creatinine [Mass/Vol] 0.9 mg/dL Normal 0.5-1.0 End [facility] Comment on above: Performed By: #### 1 030, 1035, 4500, 4510, 4520, 4581 #### [facility] Unless Otherwise Noted 2100 [facility] 100 [place] [address] / COLA #4724/CLIA # [id number] Creatinine [Mass/Vol] 74.8 Kg Normal [facility] Comment on above: Performed By: #### 1 030, 1035, 4500, 4510, 4520, 4581 #### [facility] Unless Otherwise Noted [address] [address] / COLA #4724/CLIA # [id number] Creatinine [Mass/Vol] 64.8 ml/m1.[address] [facility] Comment on above: Performed By: #### 1 030, 1035, 4500, 4510, 4520, 4581 #### [facility] Unless Otherwise Noted [address] [address] / COLA #4724/CLIA # [id number] Creatinine [Mass/Vol] 65.1 ml/m1.[address] [facility] Comment on above: Performed By: #### 1 030, 1035, 4500, 4510, 4520, 4581 #### [facility] Unless Otherwise Noted [address] [address] / COLA #4724/CLIA # [id number] Creatinine [Mass/Vol] 78.7 ml/m1.73 Normal [facility] Comment on above: Performed By: #### 1 030, 1035, 4500, 4510, 4520, 4581 #### [facility] Unless Otherwise Noted [address] [address] / COLA #4724/CLIA # [id number] FT3on 06-20-2019 FT3 2.80 pg/mL Normal 2.45-5.[address] [facility] Comment on above: Performed By: #### 1 030, 1035, 4500, 4510, 4520, 4581 #### [facility] Unless Otherwise Noted [address] [address] / COLA #4724/CLIA # [id number] FT4on 06-20-2019 Free T4 [Mass/Vol] 1.93 ng/dL Normal 0.78-2.44 [facility] Comment on above: Performed By: #### 1 030, 1035, 4500, 4510, 4520, 4581 #### [facility] Unless Otherwise Noted [address] [address] / COLA #4724/CLIA # [id number] TSHon 06-20-2019 TSH Qn 0.57 uIU/ml Normal 0.47-4.68 [facility] Comment on above: Performed By: #### 1 030, 1035, 4500, 4510, 4520, 4581 #### [facility] Unless Otherwise Noted [address] [address] / COLA #4724/CLIA # [id number] VITAMIN D 25on 06-20-2019 VITAMIN D 25 51.5 ng/ml Normal 30.0-100.0 [facility] Comment on above: Result Comment: Defi cient <20 Insufficient 20-<30 Sufficient 30-100 Potiential Toxicity >100 Performed By: #### 1 030, 1035, 4500, 4510, 4520, 4581 #### [facility] Unless Otherwise Noted [address] [address] / COLA #4724/CLIA # [id number] Basic Metabolic Profon 05-06 (cont.) Normal [facility] Comment on above: Result Comment: Aver age GFR for 70 or more years old: 75 mL/min/1.73sq mChronic Kidney Disease: <60 mL/min/1.73sq mKidney failure: <15 mL/min/1.73sq meGFR calculated using average adult body mass. Additional eGFR calculator available at:http://www.globalrph.com/multiple_crcl_2012.htmPerformed at [facility] [address] [place] [address] Performed By: #### C DP, BMP ####[facility] [place] [address] Anion gap 14 mmol/L Normal 9-17 [facility] Comment on above: Performed By: #### C DP, BMP ####[facility] [place] [address] Calcium 9.6 mg/dL Normal 8.6-10.4 [facility] Comment on above: Performed By: #### C DP, BMP ####[facility] [place] [address] Chloride 106 mmol/L Normal 98-107 [facility] Comment on above: Performed By: #### C DP, BMP ####[facility] [place] [address] CO2 26 mmol/L Normal 20-31 [facility] Comment on above: Performed By: #### C DP, BMP ####[facility] [place] [place] [address] Creatinine 0.91 mg/dL High 0.50-0.90 [facility] Comment on above: Performed By: #### C DP, BMP ####[facility] [place] [address] eGFR (non-black) mL/min/{1.73_m2} Normal >60 [facility] Comment on above: Performed By: #### C DP, BMP ####[facility] [place] [address] Glucose mass conc 99 mg/dL Normal 70-99 [facility] Comment on above: Performed By: #### C DP, BMP ####[facility] [facility] [place] [address] Potassium molar conc 4.2 mmol/L Normal 3.7-5.3 [facility] Comment on above: Performed By: #### C DP, BMP ####[facility] [facility] [place] [address] Sodium 146 mmol/L High 135-144 [facility] Comment on above: Performed By: #### C DP, BMP ####[facility] [place] [address] Urea nitrogen 21 mg/dL Normal 8- [facility] Comment on above: Performed By: #### C DP, BMP ####[facility] [place] [address] BUN/CRE Ratio NOT REPORTED Normal 9- [facility] Comment on above: Performed By: #### C DP, BMP ####[facility] [place] [address] Staging: NOT REPORTED Normal [facility] Comment on above: Performed By: #### C DP, BMP ####[address] [place] [address] CBC with Diffon 05-06-2018 Abs. Basophil 0.10 k/uL Normal 0.0-0.2 [facility] Comment on above: Result Comment: Perf ormed at [facility] [address] [place] [address] Performed By: #### C DP, BMP ####[facility] [facility] [place] [address] Abs.Neutrophil (Seg) 4.00 k/uL Normal 1.3-9.1 [facility] Comment on above: Performed By: #### C DP, BMP ####[facility] [facility] [place] [address] Basophils/100 WBC Auto (Bld) 1 % Normal 0-2 [facility] Comment on above: Performed By: #### C DP, BMP ####[facility] [place] [address].[place] [address] Eosinophils 0.20 10*3/uL Normal 0.0-0.4 [facility] Comment on above: Performed By: #### C DP, BMP ####[facility] [place] [address].[place] [address] Eosinophils/100 leukocytes 2 % Normal 0-4 [facility] Comment on above: Performed By: #### C DP, BMP ####[facility] [place] [address].[place] [address] Erythrocyte distribution width Auto Ratio (RBC) 13.9 % Normal 11.5-14.9 [facility] Comment on above: Performed By: #### C DP, BMP ####[address] [address] Erythrocytes (RBC) 4.68 10*6/uL Normal 4.0-5.2 [facility] Comment on above: Performed By: #### C DP, BMP ####[facility] [place] [address].[place] [address] Hematocrit (HCT) 41.8 % Normal 36-46 [facility] Comment on above: Performed By: #### C DP, BMP ####[address] [address] Hemoglobin mass conc (Bld) 13.7 g/dL Normal 12.0-16.0 [facility] Comment on above: Performed By: #### C DP, BMP ####[address] [address] Lymphocytes 3.20 10*3/uL Normal 1.0-4.8 [facility] Comment on above: Performed By: #### C DP, BMP ####[facility] [facility] [place] [address] Lymphocytes/100 leukocytes 39 % Normal 24-44 [facility] Comment on above: Performed By: #### C DP, BMP ####[facility] [place] [address] MCH 29.3 pg Normal 26-34 [facility] Comment on above: Performed By: #### C DP, BMP ####[facility] [place] [address] MCHC mass conc (RBC) 32.8 g/dL Normal 31-37 [facility] Comment on above: Performed By: #### C DP, BMP ####[facility] [place] [address] MCV 89.3 fL Normal 80-100 [facility] Comment on above: Performed By: #### C DP, BMP ####[facility] [place] [address] Monocytes 0.90 10*3/uL Normal 0.1-1.3 [facility] Comment on above: Performed By: #### C DP, BMP ####[facility] [place] [address] Monocytes/100 leukocytes 11 % High 1-7 [facility] Comment on above: Performed By: #### C DP, BMP ####[facility] [place] [address] Neutrophil (Seg) 47 % Normal 36-66 [facility] Comment on above: Performed By: #### C DP, BMP ####[facility] [place] [address] Platelet mean volume (PMV) 10.3 fL Normal 6.0-12.0 [facility] Comment on above: Performed By: #### C DP, BMP ####[facility] [place], [place] [address] [place] [address] Platelets 232 10*3/uL Normal 150-450 [facility] Comment on above: Performed By: #### C DP, BMP ####[facility] [place] [address] WBC (Leukocytes) 8.4 10*3/uL Normal 3.5-11.0 [facility] Comment on above: Performed By: #### C DP, BMP ####[facility] [place] [address].[place] [address] Auto Diff Performed NOT REPORTED Normal [facility] Comment on above: Performed By: #### C DP, BMP ####[facility] [facility] [place] [address] Erythrocyte morphology NOT REPORTED Normal [facility] Comment on above: Performed By: #### C DP, BMP ####[facility] [place] [address].[place] [address] Erythrocytes (RBC) NOT REPORTED Normal [facility] Comment on above: Performed By: #### C DP, BMP ####[facility] [place] [address] Granulocytes/100 WBC (Bld) NOT REPORTED Normal 0.00-0.30 [facility] Comment on above: Performed By: #### C DP, BMP ####[address] [place] [address] Immature granulocytes #/vol (Bld) NOT REPORTED Normal 0 [facility] Comment on above: Performed By: #### C DP, BMP ####[facility] [facility] [place] [address] Platelets NOT REPORTED Normal [facility] Comment on above: Performed By: #### C DP, BMP ####[facility] [facility] [place] [address] WBC Morphology NOT REPORTED Normal [facility] Comment on above: Performed By: #### C DP, BMP ####[facility] [place] [address] CNCOon 02-01-2018 CNCO Letter Carmenza vail, [facility] [address] [place] [address] / [facility] [address] [place] [address] B[address] 2017Rena Hernandez [address] [place], [place] [address]NAME: ANGELA RUTH [facility] NO.: [id number] Ms. Hernandez:I recently evaluated your patient, Angela Ruth. As you recall, is a 72-year-old woman who complains of low back pain and, to alesser degree, bilateral leg pain. She has undergone three lumbar surgeriesin the past including an L3-L5 decompression with fusion and fixation [id number]. Conservative measures to date have not given [...] office. Thank you for this consultation.Sincerely,Kalia Gill M.D.IHK:[facility] Normal [facility] CNOVon 01-27-2018 CNOV Office Visit (SPNSMN) -------ANGELA RUTH ([id number]) 1945 FDate Time Provider Department01/27/18 12:40 PM [...] 3 previous lumbar spine surgeries (L4-5 hemidiscetomy, ([id number])) L3-5 decompression fusion and fixation ([place]: 2009) [...] legDERMATOMAL DISTRIBUTION:Right: L5 and S1Left: L5 and I9MKMPPAIOBR STATUS: Impaired Community DistancesPREVIOUS CONSERVATIVE TREATMENTS:OTC NSAIDS [...] Wt 76.2 kg (168 lb) BMI 27.96 kg/[id number] APPEARANCE: Well nourished, well developed, and no [...] : 1:07 PM PAGER:PTFReferring Provider: RENA HERNANDEZ [[id number]]Allergies As of Date: 01/27/2018 Noted Allergy ReactionLINCOSAMIDES [...] [M54.40, G89.29]Order(s):XR LUMBAR MOTION 4V AP/LAT/ FLEX/EXT [[id number]] Order #: [id number] FUTUREPrescriptions as of 01/27/2018 Sig: ACETAMINOPHEN 500 [...] Jan 27, 2018 11:58 AM [facility]: Take 500-1,000 mg by mouthevery 6 hours as needed. PROAIR HFA 90 MCG/ACTUATION AEROSOL INHALER >> Valentine Madrid [place], [place] 01/27/2018 11:58 AM >> VALENTINE MADRID Jan 27, 2018 11:58 AM Received from: External Pharmacy AMITRIPTYLINE 100 MG TABLET >> Valentine [place], [place] 01/27/2018 11:58 AM >> VALENTINE MADRID Jan 27, 2018 11:58 AM [facility] Received Sig: Take 50 mg by mouth nightlyIndications: Treatment to Prevent Migraine Headaches ATORVASTATIN 40 MG TABLET >> Valentine Madrid [place], [place] 01/27/2018 11:58 AM >> VALENTINE MDARID Jan 27, 2018 11:58 AM [facility] Received Sig: Take 1 tablet (40 [...] Jan 27, 2018 11:58 AM [facility] Received Si,000 Units beforebreakfast Indications: Vitamin D Deficiency. DICLOFENAC SODIUM 75 MG TABLET,DELAYED RELEASE >> Valentine Madrid [place], [place] 01/27/2018 11:58 AM >> VALENTINE MADRID Jan 27, 2018 11:58 AM [facility] Received Sig: Take 75 mg by mouth 2(two) times a day as needed. SAND BOBBER advises up to two tablets two days a week formigraines ESCITALOPRAM 20 MG TABLET >> Valentine Madrid [place], [place] 01/27/2018 11:58 AM >> VALENTINE MADRID [place] Jan 27, 2018 11:58 AM Received from: [facility] Received Sig: Take 20 mg by mouth [...] Jan 27, 2018 11:58 AM Received from: [facility] Received Sig: Take 160 mg by mouth daily. Indications: High Amount of Fats in the Blood FEXOFENADINE 180 MG TABLET >> Valentine Madrid [place], [place] 01/27/2018 11:58 AM >> VALENTINE MADRID Jan 27, 2018 11:58 AM [facility] Received Sig: Take 180 mg by mouthbefore breakfast Indications: Allergic Rhinitis. LEVOTHYROXINE 150 MCG TABLET >> Valentine Madrid [place], [place] 01/27/2018 11:58 AM >> VALENTINE MADRID Jan 27, 2018 11:58 AM Received from: External Pharmacy MECLIZINE 25 MG TABLET >> Valentine Madrid [place], [place] 01/27/2018 11:58 AM >> VALENTINE MADRID Sabra Jan 27, 2018 11:58 AM Received from: [facility] [place] Received Sig: Take 25 mg by mouth 3 timesdaily as needed OMEPRAZOLE 20 MG CAPSULE,DELAYED RELEASE >> Valentine [place], [place] 01/27/2018 11:58 AM >> VALENTINE MADRID Sabra Jan 27, 2018 11:58 AM [facility] Received Si mg before breakfastIndications: Gastroesophageal Reflux. ACETAMINOPHEN-ISOMETHEPTENE -DICHLORALPHENAZONE 325 MG-65 MG-100 MG ORAL CAP >> Valentine Madrid [place], [place] 01/27/2018 11:58 AM >> VALENTINE MADRID Jan 27, 2018 11:58 AM Received from: [facility] Received Si (four) times a day asneeded for migraine. CYCLOBENZAPRINE 5 MG TABLET >> Valentine Madrid [place], [place] 01/27/2018 11:58 AM >> VALENTINE MADRID Jan 27, 2018 11:58 AM Received from: [facility] Received Sig: Take 10 mg by mouth 3(three) times a day as needed for muscle spasms. EZETIMIBE 10 MG-SIMVASTATIN 40 MG TABLET >> Valentine Madrid [place], [place] 01/27/2018 11:58 AM >> VALENTINE MADRID Jan 27, 2018 11:58 AM Received from: [facility] [place] Received Sig: Take 1 tablet by mouthnightly. ESOMEPRAZOLE MAGNESIUM 40 MG CAPSULE,DELAYED RELEASE >> Valentine Madrid [place], [place] 01/27/2018 11:58 AM >> VALENTINE MADRID Jan 27, 2018 11:58 AM Received from: [facility] [place] Received Sig: Take 40 mg by mouth everymorning (before breakfast). Indications: Gastroesophageal Reflux Disease METOCLOPRAMIDE 10 MG TABLET >> Valentine Madrid [place], [place] 01/27/2018 12:02 PM >> VALENTINE MADRID Sabra Jan 27, 2018 12:02 PM Received from: [facility] [place] Received Sig: Take 10 mg by mouthcontinuous MAGNESIUM GLUCONATE 27 MG (500 MG) TABLET >> Valentine Madrid [place], [place] 01/27/2018 12:02 PM >> VALENTINE MADRID Jan 27, 2018 12:02 PM Received from: [facility] [place] Received Sig: Take 500 mg by mouth 2times daily TOPIRAMATE 100 MG TABLET >> Valentine Madrid [place], [place] 01/27/2018 12:05 PM >> VALENTINE MADRID Sabra Jan 27, 2018 12:05 PM Received from: External PharmacyProblem List As Of Date 01/27/2018 Noted Resolved 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 status: : NoBreastfeeding status: NO.PATIENT RELEVANT IMPLANT DATA REVIEWED: Not ApplicableRADIOLOGY DEPARTMENT: General X-ray: Exam(s) Completed: Spine X-Ray(s):Lumbar AP / LAT / L5-S1 / FLEX-EXTPERIPHERAL IV DATA: Not applicableSIGNED BY: Angela Lake [facility] 2:25 PM Normal [facility] PROGRESS HNO ID: [id number] thor: Kalia Mata: (none)Author Type: PhysicianType: Progress [...] legDERMATOMAL DISTRIBUTION:Right: L5 and S1Left: L5 and [id number] STATUS: Impaired Community DistancesPREVIOUS CONSERVATIVE TREATMENTS:OTC NSAIDS [...] Wt 76.2 kg (168 lb) BMI 27.96 kg/f3QTUYCJS APPEARANCE: Well nourished, well developed, and no [...] 27, 2018 : 1:07 PM PAGER:PTF Normal [facility] XR LUMBAR 4V AP/LAT/ FLEX/EX Ton 01-27-2018 [...] DALTON MD on Jan 27 2018 2:52PM [id number] Normal [facility] WA-MR HIP LT WO CONT IMPORTo n 11-01-2017 [place]-MR HIP LT WO CONT IMPORT Images were obtained outside of [facility] [id number] Normal [facility] MR-MR LUMBAR SPINE W WO CONT IMPORTon 09-13-2017 MR-MR LUMBAR SPINE W WO CONT IMPORT Images were obtained outside of [facility] [id number] Normal [facility] Vital Signs Date Time Vital Sign Value Performing Clinician Leyda nevarez 01-07-2024 10:29-0500 Body height 160 cm Yoanna MAS [facility] 01-07-2024 10:29-0500 Body mass index (BMI) [Ratio] 27.63 kg/m2 Yoanna MAS Work Phone: [employer] 01-07-2024 10:29-0500 Body weight 70.76 kg Yoanna Dorsey APRN-HOT METAL MIXER OPERATOR HELPER Work Phone: [facility] 01-07-2024 10:29-0500 Diastolic blood pressure 78 mm[Hg] Yoanna Dorsey ETHNIC ORIGINS TEACHER-HOT METAL MIXER OPERATOR HELPER Work Phone: [facility] 01-07-2024 10:29-0500 Heart rate 80 /min Yoanna Dorsey ETHNIC ORIGINS TEACHER-HOT METAL MIXER OPERATOR HELPER Work Phone: [facility] 01-07-2024 10:29-0500 Systolic blood pressure 124 mm[Hg] Yoanna Dorsey APRN-HOT METAL MIXER OPERATOR HELPER Work Phone: [facility] Encounters Encounter Date Encounter Type Care Provider Facility Start: 01-18-2024 End: 01-18-2024 ambulatory RIA SNYDER Not Available Start: 01-12-2024 End: 01-12-2024 ambulatory RIA SNYDER Not Available Start: 01-11-2024 End: 01-12-2024 ambulatory [facility] Start: 01-10-2024 End: 01-11-2024 ambulatory Adelfo Hansen MD Facility: [facility] Start: 01-07-2024 End: 01-07-2024 ambulatory [facility] Start: 01-07-2024 End: 01-07-2024 Office outpatient visit 25 minutes Yoanna HERRERAHOT METAL MIXER OPERATOR HELPER Work Phone: [facility] Comment on above: Migraine without aur a and without status migrainosus, not intractable (Primary Dx); Bilateral occipital neuralgia; Essential tremor; Cervicalgia; Trapezius muscle spasm; Balance problem; Psychophysiological insomnia; Polyneuropathy; Prediabetes; Essential (primary) hypertension; Abnormal level of blood mineral; Decreased hearing of both ears Start: 01-06-2024 End: 01-06-2024 ambulatory RIA SNYDER Not Available Start: 01-06-2024 End: 01-06-2024 ambulatory Ria Snyder DIRECTOR OF PROGRAM MANAGEMENT Work Phone: [facility] Comment on above: General weakness (Pr imary Dx); History of falling Start: 01-04-2024 Bamboo flowsheet Ria Wrig ht DIRECTOR OF PROGRAM MANAGEMENT Work Phone: [facility] Start: 01-04-2024 Bamboo flowsheet Ria Wrig ht DIRECTOR OF PROGRAM MANAGEMENT Work Phone: [facility] Start: 01-04-2024 End: 01-04-2024 ambulatory RIA SNYDER Not Available Start: 01-04-2024 End: 01-04-2024 ambulatory Ria Snyder DIRECTOR OF PROGRAM MANAGEMENT Work Phone: [facility] Comment on [...] Start: 12-23-2023 End: 12-23-2023 ambulatory Ria Snyder DIRECTOR OF PROGRAM MANAGEMENT Work Phone: [facility] Comment on [...] Start: 12-03-2023 End: 12-04-2023 ambulatory JOHN JOHNSON [facility] Start: 11-29-2023 End: 11-29-2023 ambulatory LALIT Guillermo [facility] Start: 11-23-2023 End: 11-24-2023 ambulatory BIA [...] Start: 10-12-2022 End: 10-12-2022 ambulatory BIA Anny [facility] Start: 09-28-2022 End: 09-28-2022 ambulatory [facility] An[facility] Start: 05-16-2018 End: 05-16-2018 Ambulatory AUDREY HORN [facility] Start: 05-06-2018 End: 05-11-2018 Ambulatory LENNY PEDRAZA [facility] Start: 05-02-2018 Patient encounter status Antonietta Johnson MD Work Phone: [facility] Work Phone: Start: 01-27-2018 End: 01-27-2018 Ambulatory KALIA GILL [facility] Start: 01-27-2018 End: 01-31-2018 Ambulatory KALIA GILL [facility] Procedures Date Procedure Procedure Detail Performing Clinician Start: 01-07-2024 Adult depression scr eening assessment Yoanna Dorsey ETHNIC ORIGINS TEACHER-HOT METAL MIXER OPERATOR HELPER Work Phone: Start: 11-29-2023 Follow-up visit Follow-up [...] 01-07-2025 Adult BMI Screening Adult BMI Screening [facility] Start: 01-07-2025 Depression Screening Depression Screening [facility] Start: 01-07-2025 Tobacco Screening Tobacco Screening [facility] Start: 12-06-2024 Medicare Annual Wellness (AWV) Medicare Annual Wellness (AWV) [facility] Start: 11-29-2024 Adult BMI Screening Adult BMI Screening [facility] Start: 11-29-2024 Tobacco Screening Tobacco Screening [facility] Start: 10-01-2024 Fall Risk Screening Fall Risk Screening [facility] Start: 07-10-2024 End: 07-10-2024 Patient encounter procedure 07/10/2024 11:00 AM EDT Office Visit [facility] [address] [place] [address] Yoanna Dorsey, ETHNIC ORIGINS TEACHER-HOT METAL MIXER OPERATOR HELPER [address] [place] [phone] [facility] Start: 05-21-2024 Influenza vaccination Influenza Vaccine (#1) [facility] Comment on above: Postponed from 07/23/2023 (Patient Refus ed) Start: 04-23-2024 Depression Screening Depression Screening [facility] Start: 04-11-2024 End: 04-11-2024 Patient encounter procedure 04/11/2024 2:45 PM EDT Off ice Visit [facility] [address] [place] [address] John Johnson MD [address] [place] [address] [facility] Start: 04-03-2024 End: 04-03-2024 Patient encounter procedure 04/03/2024 11:20 AM EDT Office Visit [facility] [address] [place] [phone] Bia Cao MD [address] [place], [place] [id number] [facility] Start: 02-09-2024 End: 02-09-2024 Patient encounter procedure 02/09/2024 11:00 AM EDT Office Visit [facility] [address] [facility] [address] [place] [phone] Ryan Dallas MD [address] [facility] [place] [address] [facility] Start: 01-20-2024 End: 01-20-2024 ambulatory 01/20/2024 11:00 AM EST Treatment [facility] [address] [place] [address] Elmer Pettit, PT [address] [place] [address] [facility] Start: 01-18-2024 End: 01-18-2024 ambulatory 01/18/2024 11:30 AM EST Treatment [facility] [address] [place] [phone] Ria Snyder, DIRECTOR OF PROGRAM MANAGEMENT [address] [place] [address] [facility] Start: 01-14-2024 End: 01-14-2024 ambulatory 01/14/2024 1:00 PM EST Treatment [facility] [address] [place] [phone] Ria Snyder, DIRECTOR OF PROGRAM MANAGEMENT [address] [place] [address] [facility] Start: 01-12-2024 End: 01-12-2024 ambulatory 01/12/2024 12:30 PM EST Treatment [facility] [address] [place] [phone] Ria Snyder, DIRECTOR OF PROGRAM MANAGEMENT [address] [place] [address] [facility] Start: 01-11-2024 End: 01-11-2024 Patient encounter procedure 01/11/2024 11:00 AM EST Office Visit [facility] [address] [place] [address] Yoanna Dorsey APRN-HOT METAL MIXER OPERATOR HELPER [address] [place] [address] [facility] Start: 01-06-2024 End: 01-06-2024 ambulatory [facility] Start: 01-04-2024 End: 01-04-2024 ambulatory 01/04/2024 11:30 AM EST Treatment [facility] [address] [place] [address] Ria Snyder, DIRECTOR OF PROGRAM MANAGEMENT [address] [place] [address] [facility] Start: 12-31-2023 End: 12-31-2023 ambulatory 12/31/2023 10:00 AM EST Treatment [facility] [address] [place] [address] Ria Snyder, DIRECTOR OF PROGRAM MANAGEMENT [address] [place] [address] [facility] Start: 12-30-2023 End: 12-30-2023 ambulatory 12/30/2023 11:30 AM EST Treatment [facility] [address] [place] [address] Elmer Pettit, PT [address] [place] [address] [facility] Start: 12-28-2023 End: 12-28-2023 ambulatory 12/28/2023 11:30 AM EST Treatment [facility] [address] [place] [address] Ria Snyder, DIRECTOR OF PROGRAM MANAGEMENT [address] [place] [address] [facility] Start: 07-23-2023 COVID-19 Vaccine () COVID-19 Vaccine ( season) [facility] Start: 07-23-2023 Influenza vaccination Influenza Vaccine [facility] Start: 08-21-2021 DTaP,Tdap and Td Vaccines (2 - Td or Tdap) DTaP,Tdap and Td Vaccines (2 - Td or Tdap) [facility] Start: 02-26-2010 Administration of varicella zoster vaccine Zoster (Shingles) Vaccine (2 of 3) [employer] Start: 1963 Adult BMI Follow Up Plan Adult BMI Follow Up Plan [employer] Start: 1945 Medicare Annual Wellness Visit Medicare Annual Wellness Visit [employer] End: 01-07-2025 CBC W Auto Differential panel - Blood CBC auto differential Lab Routine Essential tremor Balance problem Polyneuropathy 1 Occurrences starting 01/07/2024 until 01/07/2025 [employer] Comment on above: 1 Occurrences starting 01/07/2024 until 01/07/2025 End: 01-07-2025 Cyanocobalamin vitamin b-12 Vitamin B12 Lab Routine Balance problem Polyneuropathy 1 Occurrences starting 01/07/2024 until 01/07/2025 [employer] Comment on above: 1 Occurrences starting 01/07/2024 until 01/07/2025 End: 01-07-2025 Ferritin [Mass/volume] in Serum or Plasma Ferritin Lab Routine Polyneuropathy Abnormal level of blood mineral 1 Occurrences starting 01/07/2024 until 01/07/2025 [employer] Comment on above: 1 Occurrences starting 01/07/2024 until 01/07/2025 End: 01-07-2025 Folate [Mass/volume] in Serum or Plasma Folate Serum Lab Routine Balance problem Polyneuropathy 1 Occurrences starting 01/07/2024 until 01/07/2025 [employer] Comment on above: 1 Occurrences starting 01/07/2024 until 01/07/2025 End: 01-07-2025 Hemoglobin A1c/Hemoglobin.total in Blood Hemoglobin A1c Lab Routine Balance problem Polyneuropathy Prediabetes 1 Occurrences starting 01/07/2024 until 01/07/2025 [employer] Comment on above: 1 Occurrences starting 01/07/2024 until 01/07/2025 End: 01-07-2025 Homocysteine total Homocysteine total Lab Routine Balance problem Polyneuropathy Essential (primary) hypertension 1 Occurrences starting 01/07/2024 until 01/07/2025 [employer] Comment on above: 1 Occurrences starting 01/07/2024 until 01/07/2025 End: 01-07-2025 Immunoelectrophoresis for Therapy Monitoring Immunoelectrophoresis for Therapy Monitoring Lab Routine Balance problem Polyneuropathy 1 Occurrences starting 01/07/2024 until 01/07/2025 [facility] Comment on above: 1 Occurrences starting 01/07/2024 until 01/07/2025 End: 01-07-2025 Iron and TIBC Iron and TIBC Lab Routine Essential tremor Balance problem Polyneuropathy Abnormal level of blood mineral 1 Occurrences starting 01/07/2024 until 01/07/2025 [facility] Comment on above: 1 Occurrences starting 01/07/2024 until 01/07/2025 End: 01-07-2025 Methylenetetrahydrofolate reductase Methylenetetrahydrofolate reductase Lab Routine Balance problem Polyneuropathy 1 Occurrences starting 01/07/2024 until 01/07/2025 [facility] [employer] [facility] Comment on above: 1 Occurrences starting 01/07/2024 until 01/07/2025 End: 01-07-2025 Methylmalonic acid screen Methylmalonic acid screen La b Routine Balance problem Polyneuropathy 1 Occurrences starting 01/07/2024 until 01/07/2025 [facility] Comment on above: 1 Occurrences starting 01/07/2024 until 01/07/2025 End: 01-07-2025 Protein electrophoresis, serum Protein electrophoresis, serum Lab Routine Balance problem Polyneuropathy 1 Occurrences starting 01/07/2024 until 01/07/2025 [facility] [employer] Comment on above: 1 Occurrences starting 01/07/2024 until 01/07/2025 End: 01-07-2025 Thyroid profile includes TSH FT4 Thyroid profile includes TSH FT4 Lab Routine Balance problem Polyneuropathy Prediabetes 1 Occurrences starting 01/07/2024 until 01/07/2025 [facility] [employer] Comment on above: 1 Occurrences starting 01/07/2024 until 01/07/2025 Immunizations Immunization Date Immunization Notes Care Provider [facility] 03-12-2021 COVID-19, mRNA, LNP- S, PF, 100mcg/0.5mL Dose John Johnson MD [facility] 03-11-2021 Moderna SARS-CoV-2 Vaccination Ria Snyder PTA Work Phone: [facility] 02-12-2021 COVID-19, mRNA, LNP- S, PF, 100mcg/0.5mL Dose John Johnson MD Work Phone: [facility] 02-11-2021 Moderna SARS-CoV-2 Vaccination Ria Snyder DIRECTOR OF PROGRAM MANAGEMENT Work Phone: [facility] 11-12-2020 pneumococcal conjuga te vaccine, 13 valent John Johnson MD Work Phone: [facility] 09-17-2020 influenza, high dose seasonal, preservative-free John Johnson MD Work Phone: [facility] 09-17-2020 Seasonal, quadrivale nt, recombinant, injectable influenza vaccine, preservative free John Johnson MD Work Phone: [facility] 09-17-2020 influenza virus vacc ine, unspecified formulation John Johnson MD Work Phone: [facility] 08-30-2019 Seasonal, quadrivale nt, recombinant, injectable influenza vaccine, preservative free John Johnson MD Work Phone: [facility] 08-29-2018 influenza, injectabl e, quadrivalent, preservative free John Johnson MD Work Phone: [facility] 08-22-2015 influenza, seasonal, injectable, preservative free Ria Snyder DIRECTOR OF PROGRAM MANAGEMENT Work Phone: [facility] 08-13-2015 pneumococcal polysaccharide vaccine, 23 valent Ria Snyder DIRECTOR OF PROGRAM MANAGEMENT Work Phone: [facility] 08-21-2011 tetanus and diphther ia toxoids, adsorbed, preservative free, for adult use (5 Lf of tetanus toxoid and 2 Lf of diphtheria toxoid) John Johnson MD Work Phone: [facility] 11-22-2009 zoster vaccine, live Juan Snyder DIRECTOR OF PROGRAM MANAGEMENT Work Phone: [facility] 11-22-2009 zoster vaccine, unspecified formulation John Johnson MD Work Phone: [facility] Payers Date Payer Category Payer Private Health Insurance 2021 Medicare [id number] 2021 Medicare [id number] 2014 Medicare [id number] 1945 Unknown [id number] 2.16. [id number] 1945 Unknown [id number] 2.16. 840.1.493892.3.579.2.175 1945 Unknown [id number] 2.16.84 0.1.497179.3.579.2.1286 1945 Unknown [id number] 2.16.8 40.1.362107.3.579.2.1286 1945 Unknown [id number] 2.16.8 40.1.121364.3.579.2.1286 194 Unknown [id number] 2.16.84 0.1.436664.3.579.2.1286 1945 Unknown [id number] 2.16.84 0.1.938912.3.579.2.1259 1945 Unknown [id number] 2.16.84 0.1.965402.3.579.2.1259 1945 Unknown [id number] 2.16.84 0.1.998486.3.579.2.1259 1945 Unknown [id number] 2.16.84 0.1.839720.3.579.2.1259 194 Unknown [id number] 2.16.84 0.1.010099.3.579.2.1259 194 Unknown [id number] 2.16.84 0.1.857169.3.579.2.1259 1945 Unknown [id number] 2.16.84 0.1.200741.3.579.2.1259 -194 Unknown [id number] 2.16.84 0.1.540519.3.579.2.1259 1945 Unknown [id number] 2.16.84 0.1.625081.3.579.2.1259 194 Unknown [id number] 2.16.84 0.1.648939.3.579.2.1259 1945 Unknown [id number] 2.16.84 0.1.576113.3.579.2.1259 1945 Unknown [id number] 2.16.84 0.1.032730.3.579.2.1259 1945 Unknown [id number] 2.16.840 .1.048532.3.579.2.9 1945 Unknown [id number] 2.840 .1.487195.3.579.2.125 1945 Unknown [id number] 2.840 .1.159825.3.579.2.1258 1945 Unknown [id number] 2.840 .1.546198.3.579.2.1258 1945 Unknown [id number] 2.840 .1.470275.3.579.2.1258 1945 Unknown [id number] . 840.1.812002.3.579.2.196 1945 Unknown [id number] . 840.1.443946.3.579.2.196 1945 Unknown [id number] . 840.1.622078.3.579.2.196 1945 Unknown [id number] 2. 840.1.949013.3.579.2.196 Social History Date Type Detail Facility Start: 06-04-2023 End: 11-29-2023 Tobacco smoking status WVIS Never smoked tobacco [facility] History of tobacco use Passive smoker [facility] Start: 06-04-2023 End: 11-29-2023 Tobacco use and exposure Smokeless tobacco non-user [facility] Start: 11-29-2023 End: 01-07-2024 Alcohol intake Current non-drinker of alcohol (finding) [facility] Start: 12-03-2020 End: 11-29-2023 Alcohol intake [facility] Start: 12-03-2020 End: 11-29-2023 Tobacco use panel [facility] Adolescent depressio n screening assessment 0 [facility] Start: 1945 Sex Assigned At Female [facility] Start: 05-22-2021 Gender identity Identifies as female gender (finding) [facility] Start: 05-22-2021 Sexual orientation Heterosexual (finding) [facility] Start: 12-07-2023 Alcohol intake Current drinker of alcohol (finding) [facility] Start: 05-04-2023 Alcohol Comment caffeine: occasional [facility] Start: 1945 Sex Assigned At Not on file [facility] Medical Equipment Procedure Code Equipment Code Equipment Origin al Text Equipment Identifier Dates Patch Dura 1x1in Drmtrx-[place] + Clgn Rgnrt Membr Strl - [id number] Start: 07-03-2021 Goals Date Patient Goal [...] (migraines) Inderal (tremors) Gabapentin 200 mg nightly [place] PRN Occipital nerve blocks (last 03/2021) Tizanidine [...] Breast disorder 4 biopsies Bronchitis 01/01/2017 Cancer ([facility]) Basal cell Carpal tunnel syndrome Cataract Chronic [...] 07/07/2018 Performed by Lalit Leach MD at [facility] COSMETIC SURGERY 1985 DISCECTOMY 1989 Partial L4-5 EGD 2001 EYE SURGERY 2014 FOOT SURGERY 2009 Reattachment of tendon left foot with bone graft HIP SURGERY 2003 Excision of bursa left hip HYSTERECTOMY 1983 INJECTION BLOCK EPIDURAL STEROID LUMBAR/SACRAL Left L 5,1 NR Left 12/20/2020 Performed by Shubham Clifton MD at [facility] BLOCK NERVE MEDIAL BRANCH right C 4/5,5/6 Right 05/22/2022 Performed by Shubham Clifton MD at [facility] BLOCK NERVE MEDIAL BRANCH right C 4/5,5/6 Right 04/17/2022 Performed by Shubham Clifton MD at [facility] INJECTION CAUDAL EPIDURAL WITH CATHETER, STEROID N/A 03/07/2018 Performed by Shubham Clifton MD at [facility] INJECTION LARGE JOINT BURSA: bilat hip Bilateral 12/10/2017 Performed by Shubham Clifton MD at [facility] MEDIAL BRANCH NERVE BLOCK Bilateral L 4/5, 5/1 Bilateral 06/28/2017 Performed by Shubham Clifton MD at [facility] MEDIAL BRANCH NERVE BLOCK Right L 2/3, 3/4 Right 12/08/2019 Performed by Shubham Clifton MD at [facility] MEDIAL BRANCH NERVE BLOCK RIGHT [id number] 34 Right 01/19/2020 Performed by Shubham Clifton MD at [facility] SI JOINT Bilateral 04/09/2017 Performed by Shubham Clifton MD at [facility] SI JOINT Bilateral SI Joint Bilateral 05/31/2020 Performed by Shubham Clifton MD at [facility] SI JOINT Left SI JOint Left 01/06/2019 Performed by Shubham Clifton MD at [facility] SI JOINT Right SI Joint Right 06/09/2019 Performed by Shubham Clifton MD at [facility] SPINE TRANSFORAMINAL Left L 4, 5 NR Left 09/24/2017 Performed by Shubham Clifton MD at [facility] SPINE TRANSFORAMINAL Left L 5,1 [place] Left 01/08/2023 Performed by Shubham Clifton MD at [facility] SPINE TRANSFORAMINAL Right L 5,1 Nroot Right 11/27/2022 Performed by Shubham Clifton MD at [facility] INJECTION STEROID EPI 1 WITH SEDATION Left 5,1 NR Left 05/08/2019 Performed by Shubham Clifton MD at [facility] KNEE ARTHROSCOPY 2010, 2013 KNEE SURGERY 2010 2013 Arthroscopy bilateral/repair meniscus right X2, left X1 LAMINECTOMY LUMBAR FORAMENOTOMY MULTI LEVEL L1-2 RIGHT/L2-3 BILATERAL/LUMBAR DRAIN INSERTION N/A 07/03/2021 Performed by Corey Chacon MD at [facility] LAPAROTOMY OOPHERECTOMY Bilateral 1983 LUMBAR DISCECTOMY LUMBAR FUSION 2009 L3-5 LUMBAR LAMINECTOMY MICRO LUMBAR DISCECTOMY L5-S1/ FORAMINOTOMY L5-S1 Left 01/14/2017 Performed by Corey Chacon MD at [facility] OOPHORECTOMY 1982 OTHER SURGICAL HISTORY Knee Arthroscopy With Medial Meniscus Repair OTHER SURGICAL HISTORY Spinal Diskectomy RADIO FREQUENCY ABLATION Left L 4/5, 5/1 Left 12/02/2018 Performed by Shubham Clifton MD at [facility] RADIO FREQUENCY ABLATION Left L 4/5, 5/1 Left 07/30/2017 Performed by Shubham Clifton MD at [facility] RADIO FREQUENCY ABLATION Left SI joint Left 03/31/2019 Performed by Shubham Clifton MD at [facility] RADIO FREQUENCY ABLATION Right L2/3, 3/4 Right 03/29/2020 Performed by Shubham Clifton MD at [facility] RADIOFREQUENCY ABLATION SPINAL Left Si joint Left 05/07/2017 Performed by Shubham Clifton MD at [facility] RADIOFREQUENCY ABLATION SPINAL Right C 4/5,5/6 Right 06/26/2022 Performed by Shubham Clifton MD at [facility] RADIOFREQUENCY ABLATION SPINAL RIGHT SI JOINT Right 05/21/2017 Performed by Shubham Clifton MD at [facility] RELEASE CARPAL TUNNEL Left 11/04/2021 Performed by Corey Chacon MD at [facility] SHOULDER SURGERY 2011 Right rotator cuff SKIN [...] mg total) by mouth in the morning. afmvsvy-svhqhluxsypuo-vcpdwpkj (EXCEDRIN MIGRAINE) 250-250-65 mg per tablet Take 1 tablet by mouth every 6 (six) hours as needed for headaches. atorvastatin (LIPITOR) 40 mg tablet Take 1 tablet (40 mg total) by mouth in the morning. buprenorphine (BUTRANS) 7.5 mcg/hour patch weekly Place 1 patch on the skin once a week. darhbsjqau-myelaqeulmwxk-pfqs (ESGIC) 50-325-40 mg per tablet Take 1 [...] procedures Referring and communicating with other health healthcare administrative assistant (not separately reported) Documenting clinical information in the electronic or other health record Independently interpreting results (not separately reported) and communicating results to the patient/family/caregiver Care coordination (not separately reported) - Yoanna Dorsey DNP, ETHNIC ORIGINS TEACHER-HOT METAL MIXER OPERATOR HELPER 01/07/24 10:53 AM [facility]o 01/07/24 1053 documented in this encounter [employer] System Instructions 01-07-2024 Patient Instructions Note Date [...] earlier if needed. documented in this encounter [employer] [employer] Note 12-13-2023 Telephone Encounter - Ira Rojas [...] History of falling documented in this encounter [facility] Healthcare Evaluation note Note Date & Type Note Facility Evaluation note Diagnosis Mixed hyperlipidemia (CMS/HCC)- Primary Mixed hyperlipidemia Stress incontinence of urine documented in this encounter [facility] Healthcare Evaluation note Note Date & Type Note Facility Evaluation note Diagnosis General weakness- Primary Other malaise and fatigue History of falling documented in this encounter [facility] Healthcare Evaluation note Note Date & Type Note Facility Evaluation note Diagnosis General weakness- Primary Other malaise and fatigue History of falling documented in this encounter [facility] Healthcare Evaluation note Note Date & [...] FoundDocuments on File Type Date Recorded Patient Adjunct Psychology Faculty Member Expl anation Durable Power of Orthodontic Band Maker 07/16/2021 3:45 PM Living Will 07/16/2021 3:40 [...] Documents on File Type Date Recorded Patient Adjunct Psychology Faculty Member Expl anation Durable Power of Orthodontic Band Maker 07/16/2021 3:45 PM Living Will 07/16/2021 3:40 [...] ears Procedures Hearing Evaluation (Audiology) Yoanna Dorsey, ETHNIC ORIGINS TEACHER-HOT METAL MIXER OPERATOR HELPER [address] [place] [address] Referral ID Status Reason Start Date Expiration Date V isits Requested Visits Authorized [id number] Pending Review 01/07/2024 01/06/2025 1 1 Additional Source Comments INFORMATION SOURCE (unrecogn ized section and content) DATE CREATED AUTHOR 05/13/2018 [facility] DATE CREATED AUTHOR AUTHOR'S ORGANIZ ATION 05/16/2018 [facility] DATE CREATED AUTHOR AUTHOR'S ORGANIZ ATION 06/21/2019 [facility] DATE CREATED AUTHOR AUTHOR'S ORGANIZ ATION 11/13/2022 [facility] DATE CREATED AUTHOR AUTHOR'S ORGANIZ ATION 12/07/2022 [facility] dical Specialist DATE CREATED AUTHOR AUTHOR'S ORGANIZ ATION 12/04/2023 [facility] DATE CREATED AUTHOR AUTHOR'S ORGANIZ ATION 01/09/2024 [facility] DATE CREATED AUTHOR AUTHOR'S ORGANIZ ATION 01/18/2024 [facility] DATE CREATED AUTHOR AUTHOR'S ORGANIZ ATION 01/20/2024 [facility] dical Specialists EPIC DATE CREATED AUTHOR AUTHOR'S ORGANIZ ATION 01/21/2024 [facility] Reason for Visit (unrecogniz ed section and content) Reason Onset Date Comments Med Refill 12/13/2023 Specialty Diagnoses / Procedures Referred By Violette staley Referred To Contact Physical Therapy Diagnoses Muscle weakness (generalized) Procedures TREATMENT Bia Cao MD [address] [place] [address] Elmer Pettit, PT [address] [place] [address] Referral ID Status Reason Start Date Expiration Date V isits Requested Visits Authorized [id number] Authorized 12/08/2023 06/05/2024 99 99 Reason Comments Med Refill Care Teams (unrecognized sec tion and content) Machinery Rigger Relationship Specialty Start Date End Date Bia Cao MD [address] [place] [address] PCP - General Family Medicine 02/05/23 Machinery Rigger Relationship Specialty Start Date End Date Jacob Viveros PCP - [employer] 11/22/22 Bia Cao MD [address] [place] [address] PCP - General Family Medicine 04/29/23 Machinery Rigger Relationship Specialty Start Date End Date Jacob Viveros PCP - [employer] 11/22/22 Bia Cao MD [address] [place] [address] PCP - General Family Medicine 04/29/23 Machinery Rigger Relationship Specialty Start Date End Date Jacob Viveros PCP - [employer] 11/22/22 Bia Cao MD [address] [place] [address] PCP - General Family Medicine 04/29/23 Machinery Rigger Relationship Specialty Start Date End Date Jacob Viveros PCP - [employer] 11/22/22 Bia Cao MD [address] [place] [address] PCP - General Family Medicine 04/29/23 Machinery Rigger Relationship Specialty Start Date End Date Jacob Viveros PCP - [employer] 11/22/22 Bia Cao MD [address] [facility] [place] [address] PCP - General Family Medicine 04/29/23 Machinery Rigger Relationship Specialty Start Date End Date Jacob Viveros PCP - [employer] 11/22/22 Bia Cao MD [address] [place] [address] PCP - General Family Medicine 04/29/23 Machinery Rigger Relationship Specialty Start Date End Date Bia Cao MD [address] [facility] [place] [address] PCP - General Family Medicine 02/05/23 FOR [...] BASED ON THE PRIMARY CLINICAL RECORDS. [facility]. provides no warranty or guarantee of the accuracy or completeness of information in this document.
[2024-02-07 10:31] VITALS: BP 123/67; PULSE 84; RESP 16; TEMP 36.4; O2SAT 98
[2024-02-07 10:58] VITALS: BP 117/59; PULSE 82; RESP 18; O2SAT 90
[2024-02-07 11:00] VITALS: BP 117/69; PULSE 83; RESP 18; O2SAT 90
--- NOTE | 2024-02-07 11:00 | W.PM.PROCNOT ---
Date of procedure: 02/07/24 Pre-op diagnosis: Cervical spondylosis Post-op diagnosis: same as pre-op Procedure: Procedure: Right C2-3, 3-4 medial branch block Medications: Bupivacaine 0.25% 3cc The patient was seen and examined in the preoperative holding area.? The informed consent was obtained and placed on the chart.? The patient was brought to the medical procedure unit and placed in the prone position.? A timeout was completed verifying correct patient, procedure site, positioning, plan, and special equipment.? Using aseptic technique, the needle is placed at right C2. Under direct fluoroscopic visualization, a Quincke tip needle was advanced to the midpoint of the waist of the articular pillar at the respective medial branch segment. The above-mentioned injectate was placed in a 1 mL aliquot proceeded by negative aspiration.? The needle was removed.? The procedure was completed at right C3, 4. Insertion site was covered.? Patient was taken to the postprocedural recovery area and monitored for an appropriate length of time before found suitable for discharge in the accompaniment of a responsible adult. Anesthesia: Local Surgeon: Adelfo Hansen Pathology: none sent Condition: stable Disposition: no change
[2024-02-07] MEDS: BUPIVACAINE HCL 0.25% PF 25 MG/10 ML VIAL 4 ML INJ (11:01)
[2024-02-07] MEDS: LIDOCAINE HCL 2% PF 100 MG/5 ML VIAL 1 ML INJ (11:02)
== END 2024-02-07 11:06 | disposition home or self-care (01) ==
PROVIDERS: PCP Family Medicine; Visit Provider Anesthesiology
DX: M47.812 Spondylosis without myelopathy or radiculopathy, cervical region (principal)
CPT/HCPCS: 64490; 64491

== ENCOUNTER 2024-02-16 11:23 | Outpatient (OUT) | payer MEDICARE, SELFPAY ==
--- OUTSIDE RECORDS SUMMARY | 2024-02-16 11:30 | XMS_ITS | CCD ---
Author Organization [facility] Care Team Providers Care Range Manager Name Role Phone KALIA GILL Unavailable Unavailable RENA HERNANDEZ Unavailable Unavailabl e KALIA GILL H Unavailable Unavailable LENNY PEDRAZA Unavailable Unavailable AUDREY HORN Unavailable Unavailable AUDREY HORN Unavailable Unavailable LENNY PEDRAZA Unavailable Unavailable NASH, BIA Anny Primary Care Unavailable NASH, BIA Mccormick Primary Care Unavailable LALIT LEACH Attending Unavailable NASH, BIA F Referring Unavailable NASH, BIA Mccormick Primary Care Unavailable Nash GARCIA, Bia Anny Primary Care Provider Jacob Viveros Unavailable Unavailable Nash GARCIA, [facility] Primary Care Provider YOANNA DORSEY Attending Unavailable NASH, BIA F Referring Unavailable NASH, BIA F Primary Care Unavailable NASH, BIA F Attending Unavailable NASH, BIA F Attending Unavailable SANTO GARCIA Attending Unavailable ELMER PETTIT Attending Unavailable NASH, BIA F Referring Unavailable SNYDERRIA Attending Unavailable NASH, BIA F Referring Unavailable SNYDER, RIA Attending Unavailable NASH, BIA F Referring Unavailable SNYDER, RIA Attending Unavailable NASH, BIA F Referring Unavailable SNYDER, RIA Attending Unavailable NASH, BIA F Referring Unavailable SNYDER, RIA Attending Unavailable NASH, BIA F Referring Unavailable SNYDER, RIA Attending Unavailable NASH, BIA F Referring Unavailable SNYDER, RIA Attending Unavailable NASH, BIA F Referring Unavailable SNYDER, RIA Attending Unavailable NASH, BIA F Referring Unavailable NASH, BIA F Attending Unavailable ELMER PETTIT Attending Unavailable NASH, BIA F Referring Unavailable SNYDER, RIA Attending Unavailable NASH, BIA F Referring Unavailable WILVERELMER MISTRY Attending Unavailable NASH, BIA F Referring Unavailable SNYDERRIA Attending Unavailable NASH, BIA F Referring Unavailable Jade GARCIA, Adelfo Arredondo Attending Unavailable Jade GACRIA, Andrius Arredondo Attending Unavailable Jade GARCIA, Andhector Arredondo Attending Unavailable Jade GARCIA, Andrius Arredondo Attending Unavailable Jade GARCIA, Andrius Arredondo Attending Unavailable [facility] Unavailable JUAN TAMEZ Attending Unavailable JUAN TAMEZ Attending Unavailable JUAN TAMEZ Referring Unavailable [facility] Unavailable JOHN JOHNSON Referring Unavailable [facility] Unavailable WILLIANYOANNA Referring Unavailable [facility] Unavailable Allergies Allergy Classification Reported Allergen(s) Allergy Type Date of Onset Reaction(s) Facility (8 sources) Adhesive agent; Translations: [ADHESIVE] Propensity to adverse reactions to drug (disorder) 11-04-20 16 [facility] Repository (14 sources) aspartame; Translations: [ASPARTAME] Drug Allergy 02-13-20 17 Other (See Comments), Unknown [facility] Repository (14 sources) clavulanic acid; Translations: [CLAVULANIC ACID] Drug Allergy 02-13-20 17 Rash [facility] Repository (1 source) egg white (chicken) allergenic extract; Translations: [EGG WHITE] Drug Allergy 08-14-20 11 AOF [facility] Repository (14 sources) lincomycin; Translations: [LINCOMYCIN] Drug Allergy 08-14-20 11 Anaphylaxis, [facility] Repository (8 sources) Lincosamides (Antibiotic); Translations: [LINCOSAMIDES] Propensity to adverse reactions to drug (disorder) 02-13-20 17 Anaphylaxis [facility] Repository (8 sources) oxaprozin; Translations: [OXAPROZIN] Drug Allergy 11-04-20 16 Rash [facility] Repository (14 sources) Penicillins; Translations: [PENICILLINS] Propensity to adverse reactions to drug (disorder) 11-04-20 16 [facility] Repository (8 sources) INFLUENZA VIRUS VACCINES; Translations: [INFLUENZA VIRUS VACCINES] Propensity to adverse reactions to drug (disorder) 02-13-20 17 Swelling [facility] Repository (14 sources) CLEMIZOLE; Translations: [CLEMIZOLE] Propensity to adverse reactions to drug (disorder) 02-13-20 17 [facility] Repository (14 sources) AMOXICILLIN-POT CLAVULANATE; Translations: [AMOXICILLIN-POT CLAVULANATE] Propensity to adverse reactions to drug (disorder) 08-14-20 11 [facility] Repository (7 sources) chicken allergenic extract; Translations: [POULTRY] Drug Allergy 03-02-20 23 [facility] Repository (7 sources) egg shell membrane; Translations: [EGGSHELL MEMBRANE] Propensity to adverse reactions to food (disorder) 11-04-20 16 [facility] Repository (13 sources) Indomethacin; Translations: [INDOMETHACIN] Drug Allergy 05-02-20 21 Hypotension, Unknown [facility] Repository (13 sources) Sulfamethoxazole / Trimethoprim; Translations: [SULFAMETHOXAZOLE-T RIMETHOPRIM] Drug Allergy 10-22-20 23 [facility] Repository (7 sources) Sulfonamides (Antibiotic); Translations: [SULFA (SULFONAMIDE ANTIBIOTICS)] Propensity to adverse reactions to drug (disorder) 11-11-20 22 [facility] Repository (13 sources) OTHER; Translations: [OTHER] Propensity to adverse reactions (disorder) 02-13-20 17 Other (See Comments), Swelling [facility] Repository (6 sources) Influenza Vaccines Drug Allergy 06-04-20 23 [facility] (6 sources) Lincomycin Drug Allergy 12-01-19 22 Unknown [facility] (6 sources) Sulfonamides (Antibiotic) Drug Intolerance 11-11-20 22 [facility] (6 sources) Eggs Or Egg-Derived Products Drug Allergy 08-14-20 11 Swelling, Unknown [facility] (6 sources) Poultry Meal Propensity to adverse reactions 03-02-20 23 [facility] (6 sources) Wound Dressing Adhesive Drug Allergy 06-04-20 23 [facility] Medications Current Medications Medication Drug Class(es) Dates Sig (Normalized) Sig (Original) acetaminophen 500 mg oral tablet (4 sources) take 2 tablets by mouth every six hours as needed for pain acetaminophen (TYLENOL EXTRA STRENGTH) 500 mg tablet Take 2 tablets (1,000 mg total) by mouth every 6 (six) hours as needed for pain. 0 Active acetaminophen 250 mg / aspirin 250 mg / caffeine 65 mg oral tablet (4 sources) Platelet Aggregation Inhibitor, Nonsteroidal Anti-inflammatory Drug, Central Nervous System Stimulant, Methylxanthine take 1 tablet by mouth every six hours as needed for headache aspirin-acetaminop hen-caffeine (EXCEDRIN MIGRAINE) 250-250-65 mg per tablet Take 1 tablet by mouth every 6 (six) hours as needed for headaches. 0 Active acetaminophen 325 mg / butalbital 50 mg / caffeine 40 mg oral tablet (10 sources) Barbiturate, Central Nervous System Stimulant, Methylxanthine Start: 04-23-2023 take 1 tablet by mouth every four hours as needed for headache butalbital-acetami nophen-caff (ESGIC) 50-325-40 mg per tablet Take 1 tablet by mouth every 4 (four) hours as needed for headaches. No more than 2 tablets daily, and no more than 2 days a week. 20 tablet 2 04/23/2023 Active [id number] 200 actuat albuterol 0.09 mg/actuat metered dose inhaler (10 sources) beta2-Adrenergic Agonist Start: 06-04-2023 take 2 [...] Active amitriptyline hydrochloride 50 mg oral tablet (11 sources) Tricyclic Antidepressant Start: 11-17-2023 End: 11-16-2024 take 1 tablet by mouth once daily amitriptyline (ELAVIL) 50 mg tablet Indications: Migraine without aura and without status migrainosus, not intractable , Psychophysiological insomnia Take 1 tablet (50 mg total) by mouth nightly. 90 tablet 3 01/07/2024 Active ascorbic acid 500 mg oral tablet (10 sources) Vitamin C take 2 tablets by mouth in the morning ascorbic acid (VITAMIN C) 500 mg tablet Take 2 tablets (1,000 mg total) by mouth in the morning. 0 Active Ascorbic Acid (v itamin C) 1000 MG tablet 1 (one) time each day at the same time. 0 Active aspirin 81 mg delayed release oral tablet (10 sources) Platelet Aggregation Inhibitor, Nonsteroidal Anti-inflammatory Drug take 1 tablet by mouth in the morning aspirin 81 mg Take 1 tablet (81 mg total) by mouth in the morning. 0 Active atorvastatin 40 mg oral tablet (11 sources) HMG-CoA Reductase Inhibitor Start: 2021 End: 2023 take 1 tablet by mouth in the morning atorvastatin (LIPITOR) 40 mg tablet Take 1 tablet (40 mg total) by mouth in the morning. 0 03/15/2022 Active 168 hr buprenorphine 0.0075 mg/hr transdermal system (10 sources) Partial Opioid Agonist Start: 2022 apply 1 dose transdermal route every week buprenorphine (BUTRANS) 7.5 mcg/hour patch weekly Place 1 patch on the skin once a week. 0 07/20/2023 Active calcium carbonate 1500 mg / cholecalciferol 800 unt oral tablet (10 sources) Vitamin D take 1 tablet by mouth once daily calcium carbonate-vitamin D3 600 mg(1,500mg) -800 units tablet Indications: prevention of vitamin D deficiency Take 600 mg by mouth nightly Indications: prevention of vitamin D deficiency. 0 Active carvedilol 25 mg oral tablet (10 sources) alpha-Adrenergic To, beta-Adrenergic To Start: 2022 [...] Active cholecalciferol 0.025 mg ora l tablet (10 sources) Vitamin D cholecalciferol, vitamin D3, (VITAMIN D3) 1,000 units tablet Indications: vitamin D deficiency 1 tablet (1,000 Units total) before breakfast Indications: low vitamin D levels. 0 Active cholecalciferol (Vitamin D-3) 25 MCG (1000 UT) tablet 1,000 Units in the morning. Take before meals. 0 Active escitalopram 20 mg oral tablet (10 sources) Serotonin Reuptake Inhibitor Start: 12-15-2023 End: 12-14-2024 take 1 tablet by mouth at mealtime escitalopram (Lexapro) 20 MG tablet Indications: Anxiety Take 1 tablet (20 mg) by mouth in the evening. Take with meals 100 tablet 3 12/15/2023 12/14/2024 Active famotidine 20 mg oral tablet (10 sources) Histamine-2 Receptor Antagonist Start: 11-29-2023 take 1 tablet by mouth once daily famotidine (PEPCID) 20 mg tablet Take 1 tablet (20 mg total) by mouth nightly. 90 tablet 3 11/29/2023 Active fenofibrate 160 mg oral tablet (10 sources) Peroxisome Proliferator Receptor alpha Agonist Start: 10-26-2023 End: 10-25-2024 take 1 tablet by mouth in the morning fenofibrate (Triglide) 160 MG tablet Indications: Hyperlipidemia, unspecified hyperlipidemia type (CMS/HCC) Take 1 tablet (160 mg) by mouth in the morning. 100 tablet 3 10/26/2023 10/25/2024 Active ferrous sulfate 325 mg oral tablet (2 sources) Start: 01-18-2024 take 1 tablet by mouth in the morning, then take 1 tablet by mouth at mealtime ferrous sulfate 325 (65 FE) mg tablet Take 1 tablet (325 mg total) by mouth in the morning and 1 tablet (325 mg total) in the evening. Take with meals. 60 tablet 2 01/18/2024 Active fexofenadine hydrochloride 180 mg oral tablet (10 sources) Histamine-1 Receptor Antagonist take 1 tablet by mouth once daily at breakfast fexofenadine (RALPH) 180 mg tablet Take 1 tablet (180 mg total) by mouth daily with breakfast. 0 Active hydrALAZINE hydrochloride 100 mg oral tablet (10 sources) Arteriolar Vasodilator Start: 07-26-2023 End: 02-10-2024 take 1 tablet by mouth once daily in the morning hydrALAZINE (APRESOLINE) 100 mg tablet Indications: Essential hypertension Take 1 tablet (100 mg total) by mouth in the morning and 1 tablet (100 mg total) before bedtime. Take one three times a day may take an additional 50mg daily if Systolic BP is greater than 170. 120 tablet 11 02/10/2024 Active hydroCHLOROthiazide 12.5 mg / lisinopril 20 mg oral tablet (10 sources) Thiazide Diuretic, Angiotensin Converting Enzyme Inhibitor Start: 12-06-2023 take 1 tablet by mouth in the morning lisinopril-hydroCH LOROthiazide 20-12.5 MG tablet Indications: Essential hypertension (CMS/HCC) Take 1 tablet by mouth in the morning. 100 tablet 3 12/06/2023 Active Start: 06-01-2023 take 1 tablet by margo once in the morning lisinopril-hydroCHLOROthiazide (ZESTORET IC) 20-12.5 mg per tablet Indications: Essential hypertension Take 1 tablet by mouth in the morning. 90 tablet 3 06/01/2023 Active L.acidoph/B.animalis/B.longu m (FLORAJEN DIGESTION ORAL) (4 sources) take 1 tablet by mouth in the morning L.acidoph/B.animalis/B.longum (FLORAJEN DIGESTION ORAL) Take 1 tablet by mouth in the morning. 0 Active lactobacillus acidophilus 16 mg oral capsule (6 sources) Lactobacillus (F lorajen Women) capsule as directed Orally 0 Active levothyroxine sodium 0.15 mg oral tablet (10 sources) yrox ine Star t: 01-21 take 1 tablet by mouth before breakfast levothyroxine (SYNTHROID, LEVOTHROID) 150 MCG tablet Indications: hypothyroidism Take 1 tablet (150 mcg total) by mouth before breakfast Indications: a condition with low thyroid hormone levels. 78 tablet 4 02/10/2023 Active Magnesium (10 sources) take 500 mg by mouth in [...] omeprazole 40 mg delayed release oral capsule (10 sources) Proton Pump Inhibitor Start: 024 take 1 capsule by mouth in the morning omeprazole (PriLOSEC) 40 mg capsule Indications: Gastroesophageal reflux disease, unspecified whether esophagitis present Take 1 capsule (40 mg total) by mouth in the morning. 180 capsule 3 11/29/2023 Active 24 hr oxybutynin chloride 10 mg extended release oral tablet (11 sources) Cholinergic Muscarinic Antagonist Start: 020 take 1 tablet by mouth once daily at breakfast oxybutynin XL (DITROPAN-XL) 10 mg 24 hr tablet Take 1 tablet (10 mg total) by mouth daily with breakfast. 0 11/21/2020 Active End: 01-03-2024 take 1 tablet by mouth every twenty-four hours in the morning oxybutynin XL (Ditropan-XL) 10 MG 24 hr tablet Take 10 mg by mouth in the morning. 0 01/03/2024 Discontinued pediatric olgrwhqk-aflh-zdw (flintstones complete) tablet,chewable (2 sources) Start: 01-18-2024 pediatric dqdnkgxo-snlx-max (flintstones complete) tablet,chewable Chew 1 tablet and swallow in the morning. 90 tablet 3 01/18/2024 Active therapeutic multivitamin (THERAGRAN) tablet (4 sources) take 1 tablet by mouth once daily at dinner therapeutic multivitamin (THERAGRAN) tablet Take 1 tablet by mouth daily with dinner. 0 Active tiZANidine 4 mg oral tablet (11 sources) Central alpha-2 Adrenergic Agonist Start: 01-07-2024 tiZANidine (ZANAFLEX) 4 mg tablet Indications: Bilateral [...] 0 Active ubrogepant 100 mg oral tablet (14 sources) Start: 01-07-2024 End: 01-07-2024 take 1 tablet by mouth once as needed UBRELVY 100 mg tablet Indications: Migraine without aura and without status migrainosus, not intractable Take 100 mg by mouth once as needed (migraine) for up to 1 dose. 16 tablet 12 01/07/2024 Active vitamin b12 1 mg sublingual tablet (2 sources) Vitamin B12 Start: 01-18-2024 take 1 tablet under the tongue in the morning cyanocobalamin (VITAMIN B12) 1,000 mcg tablet, sublingual Place 1 tablet (1,000 mcg total) under the tongue in the morning. 30 tablet 11 01/18/2024 Active zafirlukast 20 mg oral tablet (10 sources) Leukotriene Receptor Antagonist Start: 10-18-2021 End: 12-14-2024 take 1 tablet by mouth in the morning, then take 1 tablet by mouth at bedtime zafirlukast (ACCOLATE) 20 mg tablet Take 1 tablet (20 mg total) by mouth in the morning and 1 tablet (20 mg total) before bedtime. 0 10/18/2021 Active Completed/Discontinued Medications Medication Drug Class(es) Dates Sig (Normalized) Sig (Original) alendronic acid 70 mg oral tablet (12 sources) Bisphosphonate Start: 12-13-2023 End: 01-07-2024 take [...] Complications of surgical procedures or medical care (12 sources) Drug-induced hypotension; Translations: [Hypotension due to drugs] Onset: 1 05-23-2021 Episodic Conduction disorders (6 sources) First degree atrioventricular block; Translations: [Atrioventricular block, first degree] Onset: 1 06-04-2023 Chronic Diabetes mellitus without complication (3 sources) Prediabetes; Translations: [Prediabetes] Onset: 4 01-07-2024 Episodic Disorders of lipid metabolism (15 sources) Hyperlipidemia; Translations: [Other hyperlipidemia] Onset: 5 10-26-2017 Chronic E Codes: Fall (1 source) Unspecified fall, initial encounter; Translations: [Unspecified fall, initial encounter] Onset: 4 Episodic E Codes: Fall (1 source) Fall Onset: 4 Esophageal disorders (11 sources) Gastro-esophageal reflux disease without esophagitis; Translations: [Gastroesophageal reflux disease without esophagitis] Onset: 1 09-15-2021 Chronic Essential hypertension (15 sources) Essential hypertension; Translations: [Essential (primary) hypertension] [...] Onset: 0 06-04-2023 Chronic Headache; including migraine (12 sources) Migraine without aura, not refractory ; Translations: [Migraine without aura, not intractable, without status migrainosus] Onset: 9 Resolved: 3 12-12-2018 Chronic Miscellaneous mental health disorders (12 sources) Psychophysiologic insomnia; Translations: [Psychophysiologic insomnia] Onset: 9 12-12-2018 Chronic Mood disorders (20 sources) Depressive disorder; Translations: [Other specified depressive episodes] Onset: 7 02-12-2017 Chronic Nausea and vomiting (4 sources) Postoperative nausea and vomiting; Translations: [Nausea with vomiting, unspecified] 06-24-2021 Episodic Osteoarthritis (6 sources) Osteoarthritis of right knee joint; Translations: [Unilateral primary osteoarthritis, right knee] Onset: 1 06-04-2023 Chronic Osteoporosis (13 sources) Senile osteoporosis; Translations: [Age-related osteoporosis without current pathological fracture] Onset: 0 Resolved: 3 06-04-2023 Chronic Other and ill-defined heart disease (4 sources) Diastolic dysfunction; Translations: [Other ill-defined heart diseases] Onset: 1 05-23-2021 Chronic Other and ill-defined heart disease (4 sources) Left ventricular hypertrophy; Translations: [Cardiomegaly] Onset: 1 05-23-2021 Chronic Other and unspecified benign neoplasm (1 source) Benign neoplasm of meninges, unspecified; Translations: [Benign neoplasm of meninges, unspecified] Onset: 4 Chronic Other connective tissue disease (6 sources) Cramp in lower limb; Translations: [Sleep related leg cramps] Onset: 3 06-04-2023 Chronic Other connective tissue disease (1 source) Trigger finger, right ring finger; Translations: [Trigger finger, right ring finger] Onset: 8 Episodic Other connective tissue disease (1 source) Pain in left hand; Translations: [Pain in left hand] Onset: 2 Episodic Other ear and sense organ disorders (1 source) Decreased hearing ; Translations: [Unspecified hearing loss, bilateral] 01-07-2024 Chronic Other ear and sense organ disorders (1 source) Unspecified hearing loss, bilateral; Translations: [Unspecified hearing loss, bilateral] Onset: 4 Chronic Other gastrointestinal disorders (10 sources) Chronic idiopathic constipation; Translations: [Chronic idiopathic constipation] Onset: 9 07-10-2019 Chronic Other hereditary and degenerative nervous system conditions (11 sources) Essential tremor; Translations: [Essential tremor] Onset: 9 12-12-2018 Chronic Other hereditary and degenerative nervous system conditions (2 sources) Essential tremor; Translations: [Essential tremor] Onset: 9 Chronic Other injuries and conditions due to external causes (9 sources) History of fall; Translations: [History of falling] Onset: 3 12-23-2023 Episodic Other injuries and conditions due to external causes (1 source) Unspecified injury of head, initial encounter; Translations: [Unspecified injury of head, initial encounter] Onset: 4 Episodic Other lower respiratory disease (1 source) Solitary pulmonary nodule; Translations: [Solitary pulmonary nodule] Onset: 4 Episodic Other nervous system disorders (1 source) Other chronic pain; Translations: [Other chronic pain] Onset: 8 Chronic Other nervous system disorders (4 sources) Chronic pain syndrome; Translations: [Chronic pain syndrome] Onset: 8 2018 Chronic Other nervous system disorders (4 sources) Carpal tunnel syndrome; Translations: [Carpal tunnel syndrome, unspecified upper limb] Onset: 1 10-28-2021 Chronic Other nervous system disorders (1 source) Polyneuropathy; Translations: [Polyneuropathy, unspecified] 01-07-2024 Chronic Other nervous system disorders (2 sources) Polyneuropathy, unspecified; Translations: [Polyneuropathy, unspecified] Onset: 4 Chronic Other screening for suspected conditions (not mental disorders or infectious disease) (1 source) Abnormal findings on diagnostic imaging of other specified body structures; Translations: [Abnormal findings on diagnostic imaging of other specified body structures] Onset: 4 Chronic Other screening for suspected conditions (not mental disorders or infectious disease) (3 sources) Abnormal level of blood mineral; Translations: [Abnormal level of blood mineral] Onset: 4 01-07-2024 Episodic Spondylosis; intervertebral disc disorders; other back problems (20 sources) Prolapsed lumbar intervertebral disc; Translations: [Other intervertebral disc displacement, lumbar region] Onset: 1 Resolved: 3 01-07-2017 Chronic Thyroid disorders (10 sources) Acquired hypothyroidism; Translations: [Hypothyroidism, unspecified] Onset: 9 03-02-2023 Chronic Unclassified (1 source) EMS Onset: 4 Past or Other Problems Problem Classification Problem Date Documented Da te Episodic/Chronic Acute and unspecified renal failure (4 sources) Acute injury of kidney; Translations: [Acute kidney failure, unspecified] Onset: 03-02-2023 3 Episodic Acute cerebrovascular disease (4 sources) Hematoma of subdural space of neuraxis; Translations: [SDH (subdural hematoma)] Onset: 01-04-2018 Resolved: 07-01-2021 07-01-2021 Chronic Adjustment disorders (6 sources) Adjustment disorder with anxious mood; Translations: [Adjustment disorder with anxiety] Onset: 05-04-2023 Resolved: 10-24-2023 10-24-2023 Chronic Calculus of urinary tract (10 sources) Kidney stone; Translations: [Calculus of kidney] Onset: 03-02-2023 03-02-2023 Episodic Malaise and fatigue (7 sources) Asthenia; Translations: [Weakness] Onset: 11-04-2016 11-04-2016 Episodic Mood disorders (10 sources) Mood disorders Onset: 04-23-2023 Resolved: 01-07-2024 04-23-2023 Other circulatory disease (4 sources) Low blood pressure; Translations: [Hypotension, unspecified] Onset: 03-02-2023 03-02-2023 Episodic Other connective tissue disease (10 sources) Bilateral trochanteric bursitis; Translations: [Trochanteric bursitis, right hip] Onset: 11-03-2017 11-03-2017 Episodic Other connective tissue disease (4 sources) Impingement syndrome of right shoulder region; Translations: [Impingement syndrome of right shoulder] Onset: 08-14-2011 06-22-2018 Episodic Other connective tissue disease (5 sources) Muscle spasm of cervical muscle of neck; Translations: [Other muscle spasm] Onset: 05-05-2019 05-05-2019 Episodic Other connective tissue disease (4 sources) Nocturnal muscle spasm ; Translations: [Other [...] Onset: 05-05-2019 Episodic Other lower respiratory disease (4 sources) Dyspnea; Translations: [Shortness of breath] Onset: 11-06-2019 11-06-2019 Episodic Other nervous system disorders (5 sources) Impairment of balance; Translations: [Other abnormalities of gait and mobility] Onset: 06-12-2019 06-12-2019 Episodic Other nervous system disorders (2 sources) Other abnormalities of gait and mobility; Translations: [Other abnormalities of gait and mobility] Onset: 06-12-2019 Episodic Other non-traumatic joint disorders (8 sources) Hip pain; Translations: [Pain in right hip] Onset: 10-13-2017 11-03-2017 Episodic Other upper respiratory disease (4 sources) Chronic hoarseness; Translations: [Dysphonia] Onset: 07-24-2020 07-24-2020 Episodic Screening and history of mental health and substance abuse codes (10 sources) H/O: depression; Translations: [Personal history of other mental and behavioral disorders] Onset: 2018 2018 Episodic Spondylosis; intervertebral disc disorders; other back problems (20 sources) Lumbago with sciatica, unspecified side; Translations: [Spinal stenosis of lumbar region] Onset: 08-14-2011 Resolved: 10-24-2023 12-22-2022 Episodic Results Test Name Value Interpretation Reference Range Facility CBC AND AUTO DIFFon 02-11-20 24 ABSOLUTE BASOPHIL 0.0 X10E9/L Normal 0.0-0.2 [facility] Comment on above: Performed By: #### 1 3965-9, CBCA, FEPR, THYR, 2276-4, 2-9, 4-8, IMEL, SPE #### [facility] ([id number]) [address] [place] [address], [address] [place] [address] #### MTHFRS #### [facility] ([id number]) [address] [place] [address], [address] [place], [place] 540[address] ABSOLUTE NEUTROPHIL 3.0 X10E9/L Normal 1.5-6.6 [facility] Comment on above: Performed By: #### 1 3965-9, CBCA, FEPR, THYR, 2276-4, 2-9, 4-8, IMEL, SPE #### [facility] ([id number]) [address], [address] [place] [address] #### MTHFRS #### [facility] ([id number]) [address] [place] [address] 51153 Basophils/100 WBC (Bld) 0.9 % Normal [facility] Comment on above: Performed By: #### 1 3965-9, CBCA, FEPR, THYR, 2276-4, 2-9, 4-8, IMEL, SPE #### [facility] ([id number]) [address] [address], [address] [place] [address] #### MTHFRS #### [facility] ([id number]) [address] [place] [address] 59309 Eosinophils (Bld) [#/Vol] 0.1 10*3/uL Normal 0.0-0.4 [facility] Comment on above: Performed By: #### 1 3965-9, CBCA, FEPR, THYR, 6-4, 2131-9, 4-8, IMEL, SPE #### [facility] ([id number]) [address] [facility], [address] [place] [address] #### MTHFRS #### [facility] ([id number]) [address] [place] [address] 39457 Eosinophils/100 WBC (Bld) 1.8 % Normal [facility] Comment on above: Performed By: #### 1 3965-9, CBCA, FEPR, THYR, 6-4, 2131-9, 4-8, IMEL, SPE #### [facility] ([id number]) [address] [facility], [address] [place] [address] #### MTHFRS #### [facility] ([id number]) [address] [place] [address] 68322 Erythrocyte distribution width (RBC) [Ratio] 15.1 % High 11.5-15.0 [facility] Comment on above: Performed By: #### 1 3965-9, CBCA, FEPR, THYR, 6-4, 2132-07, 8, IMEL, SPE #### [facility] ([id number]) [address] [facility], [address] [place] [address] #### MTHFRS #### [facility] ([id number]) [address] [place] [address] 19024 Hematocrit (Bld) [Volume fraction] 39.6 % Normal 35-47 [facility] Comment on above: Performed By: #### 1 3965-9, CBCA, FEPR, THYR, 2276-02, 2132-07, 2284-06, IMEL, SPE #### [facility] ([id number]) [address] [facility], [address] [place] [address] #### MTHFRS #### [facility] ([id number]) [address] [place] [address] 08841 Hemoglobin (Bld) [Mass/Vol] 13.5 g/dL Normal 11.7-15.5 [facility] Comment on above: Performed By: #### 1 3965-9, CBCA, FEPR, THYR, 2276-02, 2132-07, 2284-06, IMEL, SPE #### [facility] ([id number]) [address], [address] [place] [address] #### MTHFRS #### [facility] ([id number]) [address] [place] [address] 38635 Lymphocytes (Bld) [#/Vol] 1.5 10*3/uL Normal 1.0-3.5 [facility] Comment on above: Performed By: #### 1 3965-9, CBCA, FEPR, THYR, 6-4, 2132-07, 2284-8, IMEL, SPE #### [facility] ([id number]) [address], [address] [place] [address] #### MTHFRS #### [facility] ([id number]) [address] [place] [address] 86746 Lymphocytes/100 WBC (Bld) 28.5 % Normal [facility] Comment on above: Performed By: #### 1 3965-9, CBCA, FEPR, THYR, 6-4, 9, 2283-8, IMEL, SPE #### [facility] ([id number]) [address] [facility], [address] [place] [address] #### MTHFRS #### [facility] ([id number]) [address] [place] [address] 32803 MCH (RBC) [Entitic mass] 29.0 pg Normal 27-34 [facility] Comment on above: Performed By: #### 1 3965-9, CBCA, FEPR, THYR, 6-4, 9, 2283-8, IMEL, SPE #### [facility] ([id number]) [address], [address] [place] [address] #### MTHFRS #### [facility] ([id number]) [address] [place] [address] 63468 MCHC (RBC) [Mass/Vol] 34.0 g/dL Normal 32-36 [facility] Comment on above: Performed By: #### 1 3965-9, CBCA, FEPR, THYR, 6-4, 9, 2283-8, IMEL, SPE #### [facility] ([id number]) [address], [address] [place] [address] #### MTHFRS #### [facility] ([id number]) [address] [place] [address] 15572 MCV (RBC) [Entitic vol] 85 fL Normal 80-100 [facility] Comment on above: Performed By: #### 1 3965-9, CBCA, FEPR, THYR, 2276-4, 2131-9, 4-8, IMEL, SPE #### [facility] ([id number]) [address], [address] [place] [address] #### MTHFRS #### [facility] ([id number]) [address] [place] [address] 00001 Monocytes (Bld) [#/Vol] 0.5 10*3/uL Normal 0-0.9 [facility] Comment on above: Performed By: #### 1 3965-9, CBCA, FEPR, THYR, 6-4, 2131-9, 2283-8, IMEL, SPE #### [facility] ([id number]) [address], [address] [place] [address] #### MTHFRS #### [facility] ([id number]) [address] [place] [address] 87930 Monocytes/100 WBC (Bld) 10.3 % Normal [facility] Comment on above: Performed By: #### 1 3965-9, CBCA, FEPR, THYR, 6-4, 2132-07, 2284-06, IMEL, SPE #### [facility] ([id number]) [address], [address] [place] [address] #### MTHFRS #### [facility] ([id number]) [address] [place] [address] 39996 Neutrophils/100 WBC (Bld) 58.5 % Normal [facility] Comment on above: Performed By: #### 1 3965-9, CBCA, FEPR, THYR, 6-4, 2132-07, 2283-8, IMEL, SPE #### [facility] ([id number]) [address], [address] [place] [address] #### MTHFRS #### [facility] ([id number]) [address] [place] [address] 83271 Platelet mean volume (Bld) [Entitic vol] 9.2 fL Normal 7-12 [facility] Comment on above: Performed By: #### 1 3965-9, CBCA, FEPR, THYR, 2276-4, 2132-9, 2284-8, IMEL, SPE #### [facility] ([id number]) [address], [address] [place] [address] #### MTHFRS #### [facility] ([id number]) [address] [place] [address] 98873 Platelets (Bld) [#/Vol] 176 10*3/uL Normal 150-450 [facility] Comment on above: Performed By: #### 1 3965-9, CBCA, FEPR, THYR, 2276-4, 2131-9, 2284-8, IMEL, SPE #### [facility] ([id number]) [address] [facility], [address] [place] [address] #### MTHFRS #### [facility] ([id number]) [address] [place] [address] 63073 RBC COUNT 4.65 X10E12/L Normal 3.80-5.20 [facility] Comment on above: Performed By: #### 1 3965-9, CBCA, FEPR, THYR, 2276-4, 2-9, 2284-8, IMEL, SPE #### [facility] ([id number]) [address] [facility], [address] [place] [address] #### MTHFRS #### [facility] ([id number]) [address] [place] [address] 74551 WBC (Bld) [#/Vol] 5.2 10*3/uL Normal 4.0-11.0 [facility] Comment on above: Performed By: #### 1 3965-9, CBCA, FEPR, THYR, 2276-4, 2131-9, 4-8, IMEL, SPE #### [facility] ([id number]) [address], [address] [place] [address] #### MTHFRS #### [facility] ([id number]) [address] [place] [address] 10104 COMPREHENSIVE METABOLIC PANE Gadiel 02-11-2024 Albumin [Mass/Vol] 4.1 g/dL Normal 3.2-5.3 [facility] Comment on above: Performed By: #### 1 3965-9, CBCA, FEPR, THYR, 6-4, 2132-07, 2283-8, IMEL, SPE #### [facility] ([id number]) [address], [address] [place] [address] #### MTHFRS #### [facility] ([id number]) [address] [place] [address] 87133 ALP [Catalytic activity/Vol] 42 U/L Normal 39-130 [facility] Comment on above: Performed By: #### 1 3965-9, CBCA, FEPR, THYR, 6-4, 9, 4-8, IMEL, SPE #### [facility] ([id number]) [address], [address] [place] [address] #### MTHFRS #### [facility] ([id number]) [address] [place] [address] 25139 ALT [Catalytic activity/Vol] 18 U/L Normal 0-31 [facility] Comment on above: Performed By: #### 1 3965-9, CBCA, FEPR, THYR, 6-4, 9, 2283-8, IMEL, SPE #### [facility] ([id number]) [address], [address] [place] [address] #### MTHFRS #### [facility] ([id number]) [address] [place] [address] Anion gap [Moles/Vol] 7 mmol/L Normal 5-15 [facility] Comment on above: Performed By: #### 1 3965-9, CBCA, FEPR, THYR, 6-4, 9, 2283-8, IMEL, SPE #### [facility] ([id number]) [address], [address] [place] [address] #### MTHFRS #### [facility] ([id number]) [address] [place] [address] 35597 AST [Catalytic activity/Vol] 27 U/L Normal 0-41 [facility] Comment on above: Performed By: #### 1 3965-9, CBCA, FEPR, THYR, 2275-4, 2132-07, 2284-06, IMEL, SPE #### [facility] ([id number]) [address], [address] [place] [address] #### MTHFRS #### [facility] ([id number]) [address] [place] [address] 04183 Bilirubin [Mass/Vol] 0.5 mg/dL Normal 0.3-1.2 [facility] Comment on above: Performed By: #### 1 3965-9, CBCA, FEPR, THYR, 6-4, 2132-07, 2284-06, IMEL, SPE #### [facility] ([id number]) [address], [address] [place] [address] #### MTHFRS #### [facility] ([id number]) [address] [place] [address] 18364 Calcium [Mass/Vol] 9.4 mg/dL Normal 8.5-10.5 [facility] Comment on above: Performed By: #### 1 3965-9, CBCA, FEPR, THYR, 6-4, 2131-9, 4-8, IMEL, SPE #### [facility] ([id number]) [address], [address] [place] [address] #### MTHFRS #### [facility] ([id number]) [address] [place] [address] 74085 Chloride [Moles/Vol] 104 mmol/L Normal 98-109 [facility] Comment on above: Performed By: #### 1 3965-9, CBCA, FEPR, THYR, 2275-, 2132-07, 48, IMEL, SPE #### [facility] ([id number]) [address], [address] [place] [address] #### MTHFRS #### [facility] ([id number]) [address] [place] [address] 24424 CO2 [Moles/Vol] 25 mmol/L Normal 22-32 [facility] Comment on above: Performed By: #### 1 3965-9, CBCA, FEPR, THYR, 2275-, 2132-07, 8, IMEL, SPE #### [facility] ([id number]) [address] [facility], [address] [place] [address] #### MTHFRS #### [facility] ([id number]) [address] [place] [address] 35379 Creatinine [Mass/Vol] 1.01 mg/dL High 0.40-1.00 [facility] Comment on above: Result Comment: METH OD TRACEABLE TO IDMS STANDARD Performed By: #### 1 3965-9, CBCA, FEPR, THYR, 6-4, 2131-9, 2283-8, IMEL, SPE #### [facility] ([id number]) [address] [place] [address] #### MTHFRS #### [facility] ([id number]) [address] [place] [address] 95924 GFR/1.73 sq M.predicted among non-blacks MDRD (S/P/Bld) [Vol rate/Area] 57 mL/min/{1.73_m2} Low >59 [facility] Comment on above: Result Comment: Reported eGFR is based on the CKD-EPI 2020 equation that does not use a race coefficient. Performed By: #### 1 3965-9, CBCA, FEPR, THYR, 2276-4, 9, 4-8, IMEL, SPE #### [facility] ([id number]) [address] [place] [address], [address] [address] #### MTHFRS #### [facility] ([id number]) [address] [place] [address] 22399 Glucose [Mass/Vol] 114 mg/dL High 65-99 [facility] Comment on above: Performed By: #### 1 3965-9, CBCA, FEPR, THYR, 6-4, 9, 8, IMEL, SPE #### [facility] ([id number]) [address] [place] [address] #### MTHFRS #### [facility] ([id number]) [address] [place] [address] 28182 Potassium [Moles/Vol] 4.2 mmol/L Normal 3.5-5.0 [facility] Comment on above: Performed By: #### 1 3965-9, CBCA, FEPR, THYR, 2276-4, 9, 8, IMEL, SPE #### [facility] ([id number]) [address], [address] [place] [address] #### MTHFRS #### [facility] ([id number]) [address] [place] [address] 83943 Protein [Mass/Vol] 7.2 g/dL Normal 6.0-8.0 [facility] Comment on above: Performed By: #### 1 3965-9, CBCA, FEPR, THYR, 2276-4, 2-9, 2284-8, IMEL, SPE #### [facility] ([id number]) [address] [facility], [address] [place] [address] #### MTHFRS #### [facility] ([id number]) [address] [place] [address] 89975 Sodium [Moles/Vol] 136 mmol/L Normal 134-146 [facility] Comment on above: Performed By: #### 1 3965-9, CBCA, FEPR, THYR, 2276-4, 2-9, 2284-8, IMEL, SPE #### [facility] ([id number]) [address], [address] [place] [address] #### MTHFRS #### [facility] ([id number]) [address] [place] [address] 27531 Urea nitrogen [Mass/Vol] 22 mg/dL Normal 5-27 [facility] Comment on above: Performed By: #### 1 3965-9, CBCA, FEPR, THYR, 2276-4, 2-9, 2284-8, IMEL, SPE #### [facility] ([id number]) [address], [address] [place] [address] #### MTHFRS #### [facility] ([id number]) [address] [place] [address] ABDOMEN AND PELVIS W CONT on 02-11-2024 CT ABDOMEN AND PELVIS W CONT CT ABDOMEN AND PELVIS W CONT Clinical history: Blunt abdominal trauma, pain. Technique: Spiral CT of the abdomen and pelvis was performed after the intravenous administration of contrast material. Sagittal and coronal reformatted imaging was performed. All CT scans at this facility use dose modulation, iterative reconstruction, and/or weight based dosing when appropriate to reduce radiation dose to as low as reasonably achievable. Comparisons: 05/13/2014. Findings: CT ABDOMEN: Some minimal atelectatic changes are present in the lung bases. There is no pneumoperitoneum. Hepatic steatosis is present. Small low-attenuation observation within the subcapsular region posterior segment right lobe of liver is unchanged and may represent a small cyst or hemangioma. No suspicious liver lesions. No liver laceration nor biliary ductal dilation. Changes of cholecystectomy again seen. Peripherally calcified structure adjacent to the cholecystectomy bed likely represents some fat necrosis. The spleen, adrenal glands and pancreas appear unremarkable. Kidneys appear intact. Renal collecting systems and ureters are not dilated. Dense atherosclerotic aortoiliac vascular calcifications are present without aneurysm. There is no retroperitoneal nor mesenteric lymphadenopathy. 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 No dilated bowel loops. CT PELVIS: Patient is status post hysterectomy and appendectomy. Lower lumbar laminectomy and fusion again seen. No acute fractures identified. IMPRESSION: 1. No acute traumatic finding within the abdomen nor pelvis. 2. Hepatic steatosis. Finalized by Dre Mooney MD on 02/11/2024 2:04 PM Normal [facility] CT BRAIN WO CONTon CT BRAIN WO CONT CT BRAIN WO CONT STUDY: CT BRAIN WO CONT INDICATION: Head trauma, minor (Age >= 65y). TECHNIQUE: * CT head was performed without intravenous contrast using the standard protocol. Automated exposure control was utilized. * All CT scans at this facility use dose modulation, iterative reconstruction, and/or weight based dosing when appropriate to reduce radiation dose to as low as reasonably achievable. FINDINGS: Possible 1.2 cm mass in the right posterior fossa, unchanged from prior and may reflect a extra-axial lesion such as a meningioma No evidence of acute intracranial hemorrhage, territorial infarct, mass effect, midline shift, or extra-axial fluid collection. Mild diffuse parenchymal atrophy. Ventricles, sulci and cisterns are otherwise unremarkable. Bilateral pseudophakia. Soft tissues are unremarkable. Intracranial atherosclerosis. Mild mucosal thickening of the right maxillary sinus and maxillary periapical lucency. Mastoid air cells are broadly clear. Hyperostosis frontalis interna. Degenerative changes of the right greater than left temporomandibular joint. IMPRESSION: * No acute intracranial abnormality, by CT. * Possible small right posterior fossa extra-axial lesion which may reflect a meningioma. Consider nonemergent MR brain with contrast to assess this observation. Finalized by Dharmesh Mittal on 02/11/2024 1:52 PM Normal [facility] CT CERVICAL SPINE WO CONTon 02-11-2024 CT CERVICAL SPINE WO CONT CT CERVICAL SPINE WO CONT History: Neck trauma with pain Exam/Technique: Contiguous axial images are obtained of the cervical spine without intravenous contrast. Coronal and sagittal reconstructions were performed and reviewed. Automatic exposure control was utilized. Comparison: September 2023 Findings: No prevertebral soft tissue swelling, fracture or acute malalignment is identified. Age compatible degenerative disease. More localized to the right facet joint C4-5 and endplates at C5-6. Unchanged from previous. No high-grade bony canal encroachment. The surrounding soft tissue structures are symmetric and show no fluid collections or reproducible structural pathology. Included portions of the lung apices show no acute abnormality. IMPRESSION: * No acute cervical spine pathology. All CT scans at this facility use dose modulation, iterative reconstruction, and/or weight based dosing when appropriate to reduce radiation dose to as low as reasonably achievable. Finalized by Maikol Davis DO on 02/11/2024 1:52 PM Normal [facility] CT CHEST W CONTon 02-11-2024 CT CHEST W CONT CT CHEST W CONT STUDY: CT CHEST W CONT INDICATION: Chest trauma, blunt. COMPARISON: None TECHNIQUE: * Contiguous axial CT images through the chest were obtained with intravenous contrast. Reformats were performed. * All CT scans at this facility use dose modulation, iterative reconstruction, and/or weight based dosing when appropriate to reduce radiation dose to as low as reasonably achievable. FINDINGS: LINES: There are no lines or tubes. LOWER NECK: Unremarkable. MEDIASTINUM: The thyroid is normal. No mediastinal lymphadenopathy. No hilar lymphadenopathy. AXILLA: No axillary lymphadenopathy. HEART: The heart size is within normal limits. No significant pericardial effusion. Mild coronary artery atherosclerosis. Nonaneurysmal thoracic aorta. PULMONARY ARTERIES: Main pulmonary artery is not dilated. LUNGS: The trachea and proximal airways are unremarkable. Bibasilar atelectasis. LUNG NODULES: Incidental 4 mm solid nodule in the left upper lobe (series 11, image 28). PLEURA: No pleural effusions or pneumothorax. ABDOMEN: Elevation of the bilateral hemidiaphragms. The visualized abdominal viscera is unremarkable. SOFT TISSUES: Asymmetric density in the left breast compared to the right. Correlation with mammographic workup and evaluation is recommended. BONES: Degenerative changes of the thoracic spine. Vertebral body heights are maintained. Lumbar fusion hardware in place. IMPRESSION: * No acute thoracic abnormality, by CT. * Indeterminate solid pulmonary nodule measuring less than 6 mm. In a low-risk patient with a nodule <6 mm, recommend no follow-up. * Asymmetric left breast density compared to the right. Correlation with mammographic workup and evaluation is recommended. Beatrice H, et al. Guidelines for Management of Incidental Pulmonary Nodules Detected on CT Images: From the Fleischner Society 2017. Radiology. 2017 Jeremi;284(1):228-243. Approved by Resident Mara Thomas DO on 02/11/2024 2:01 PM ICorey MD have personally reviewed the image(s) and agree with and/or edited the report Finalized by Corey Ann MD on 02/11/2024 2:19 PM Normal [facility] LIPASEon 02-11-2024 Lipase [Catalytic activity/Vol] 38 U/L Normal 17-40 [facility] Comment on above: Performed By: #### 1 3965-9, CBCA, FEPR, THYR, 2276-4, 2132-9, 2284-8, IMEL, SPE #### [facility] ([id number]) [address], [address] [place] [address] #### MTHFRS #### [facility] ([id number]) [address] [place] [address], [place] [address] CBC AND AUTO DIFFon 01-11-20 24 ABSOLUTE BASOPHIL 0.1 X10E9/L Normal 0.0-0.2 [facility] Comment on above: Performed By: #### 1 3965-9, CBCA, FEPR, THYR, 6-4, 2132-07, 8, IMEL, SPE #### [facility] ([id number]) [address], [address] [place] [address] #### MTHFRS #### [facility] ([id number]) [address] [place] [address] 58138 ABSOLUTE NEUTROPHIL 2.4 X10E9/L Normal 1.5-6.6 [facility] Comment on above: Performed By: #### 1 3965-9, CBCA, FEPR, THYR, 2275-, 2132-07, 2284-06, IMEL, SPE #### [facility] ([id number]) [address], [address] [place] [address] #### MTHFRS #### [facility] ([id number]) [address] [place] [address] 59535 Basophils/100 WBC (Bld) 1.4 % Normal [facility] Comment on above: Performed By: #### 1 3965-9, CBCA, FEPR, THYR, 2275-, 2132-07, 2284-06, IMEL, SPE #### [facility] ([id number]) [address] [place] [address] #### MTHFRS #### [facility] ([id number]) [address] [place] [address] 39319 Eosinophils (Bld) [#/Vol] 0.1 10*3/uL Normal 0.0-0.4 [facility] Comment on above: Performed By: #### 1 3965-9, CBCA, FEPR, THYR, 6-4, 2132-07, 2284-06, IMEL, SPE #### [facility] ([id number]) [address] [place] [address] #### MTHFRS #### [facility] ([id number]) [address] [place] [address] 90851 Eosinophils/100 WBC (Bld) 2.8 % Normal [facility] Comment on above: Performed By: #### 1 3965-9, CBCA, FEPR, THYR, 2276-4, 2131-9, 2284-8, IMEL, SPE #### [facility] ([id number]) [address] [facility] [place] [address] #### MTHFRS #### [facility] ([id number]) [address] [place] [address]23 Erythrocyte distribution width (RBC) [Ratio] 15.5 % High 11.5-15.0 [facility] Comment on above: Performed By: #### 1 3965-9, CBCA, FEPR, THYR, 2276-4, 2131-9, 2284-8, IMEL, SPE #### [facility] ([id number]) [address] [facility], [address] [place] [id number] #### MTHFRS #### [facility] ([id number]) [address] [place] [id number] Hematocrit (Bld) [Volume fraction] 38.4 % Normal 35-47 [facility] Comment on above: Performed By: #### 1 3965-9, CBCA, FEPR, THYR, 2276-4, 2131-9, 2284-8, IMEL, SPE #### [facility] ([id number]) [address], [address] [place] [address] #### MTHFRS #### [facility] ([id number]) [address] [place] [address]25 Hemoglobin (Bld) [Mass/Vol] 12.5 g/dL Normal 11.7-15.5 [facility] Comment on above: Performed By: #### 1 3965-9, CBCA, FEPR, THYR, 6-4, 9, 8, IMEL, SPE #### [facility] ([id number]) [address], [address] [place] [address] #### MTHFRS #### [facility] ([id number]) [address] [place] [address]34 Lymphocytes (Bld) [#/Vol] 1.7 10*3/uL Normal 1.0-3.5 [facility] Comment on above: Performed By: #### 1 3965-9, CBCA, FEPR, THYR, 2275-4, 2132-07, 2284-06, IMEL, SPE #### [facility] ([id number]) [address], [address] [place] [address] #### MTHFRS #### [facility] ([id number]) [address] [place] [address] 09735 Lymphocytes/100 WBC (Bld) 35.8 % Normal [facility] Comment on above: Performed By: #### 1 3965-9, CBCA, FEPR, THYR, 2275-, 2132-07, 2284-06, IMEL, SPE #### [facility] ([id number]) [address], [address] [place] [address] #### MTHFRS #### [facility] ([id number]) [address] [place] [address] 11090 MCH (RBC) [Entitic mass] 28.5 pg Normal 27-34 [facility] Comment on above: Performed By: #### 1 3965-9, CBCA, FEPR, THYR, 6-4, 2132-07, 2284-8, IMEL, SPE #### [facility] ([id number]) [address], [address] [place] [address] #### MTHFRS #### [facility] ([id number]) [address] [place] [address] 04225 MCHC (RBC) [Mass/Vol] 32.7 g/dL Normal 32-36 [facility] Comment on above: Performed By: #### 1 3965-9, CBCA, FEPR, THYR, 6-4, 9, 2284-06, IMEL, SPE #### [facility] ([id number]) [address], [address] [place] [address] #### MTHFRS #### [facility] ([id number]) [address] [place] [address] 59135 MCV (RBC) [Entitic vol] 87 fL Normal 80-100 [facility] Comment on above: Performed By: #### 1 3965-9, CBCA, FEPR, THYR, 6-4, 2132-07, 2284-06, IMEL, SPE #### [facility] ([id number]) [address], [address] [place] [address] #### MTHFRS #### [facility] ([id number]) [address] [place] [address] 61116 Monocytes (Bld) [#/Vol] 0.5 10*3/uL Normal 0-0.9 [facility] Comment on above: Performed By: #### 1 3965-9, CBCA, FEPR, THYR, 6-4, 2132-07, 2284-06, IMEL, SPE #### [facility] ([id number]) [address], [address] [place] [address] #### MTHFRS #### [facility] ([id number]) [address] [place] [address] Monocytes/100 WBC (Bld) 10.0 % Normal [facility] Comment on above: Performed By: #### 1 3965-9, CBCA, FEPR, THYR, 2275-4, 2132-07, 8, IMEL, SPE #### [facility] ([id number]) [address], [address] [place] [address] #### MTHFRS #### [facility] ([id number]) [address] [place] [address] Neutrophils/100 WBC (Bld) 50.0 % Normal [facility] Comment on above: Performed By: #### 1 3965-9, CBCA, FEPR, THYR, 2276-02, 2132-07, 2284-06, IMEL, SPE #### [facility] ([id number]) [address], [address] [place] [address] #### MTHFRS #### [facility] ([id number]) [address] [place] [address] 07062 Platelet mean volume (Bld) [Entitic vol] 9.6 fL Normal 7-12 [facility] Comment on above: Performed By: #### 1 3965-9, CBCA, FEPR, THYR, 2276-02, 2132-07, 2284-06, IMEL, SPE #### [facility] ([id number]) [address], [address] [place] [address] #### MTHFRS #### [facility] ([id number]) [address] [place] [address] 01879 Platelets (Bld) [#/Vol] 194 10*3/uL Normal 150-450 [facility] Comment on above: Performed By: #### 1 3965-9, CBCA, FEPR, THYR, 2276-02, 2132-07, 2284-8, IMEL, SPE #### [facility] ([id number]) [address], [address] [place] [address] #### MTHFRS #### [facility] ([id number]) [address] [place] [address] 82568 RBC COUNT 4.41 X10E12/L Normal 3.80-5.20 [facility] Comment on above: Performed By: #### 1 3965-9, CBCA, FEPR, THYR, 2276-4, 2131-9, 2284-8, IMEL, SPE #### [facility] ([id number]) [address] [facility], [address] [place] [address] #### MTHFRS #### [facility] ([id number]) [address] [place] [address] 71472 WBC (Bld) [#/Vol] 4.9 10*3/uL Normal 4.0-11.0 [facility] Comment on above: Performed By: #### 1 3965-9, CBCA, FEPR, THYR, 2276-4, 2131-9, 4-8, IMEL, SPE #### [facility] ([id number]) [address] [facility], [address] [place] [address] #### MTHFRS #### [facility] ([id number]) [address] [place] [address] 31376 Clinical Pathologyon 024 Clinical Pathology Normal [facility] Comment on above: Result Comment: [facility] [address] [place] [address] Clinical Pathology Report Patient Name:ANGELA RUTH:1945 (Age: 78)Gender:FTaken:4Reported:4Physician(s):MARCE Rayo ([phone])Copy To: Rec. #:[id number]: #[id number] Final Pathologic Diagnosis No monoclonal protein identified. Report Electronically Signed Out 01/12/2024duncan Alamo MD Interpretation performed at [facility], [address] [place] [address], License number: [id number]. Clinical History G25.0, R26.89, G62.9, R79.0. SERUM IEP SAMPLE NUMBER: [id number] IMMUNOGLOBULIN LEVELS (mg/dL): IgG : 652 IgA : 225 IgM : 64 Free [facility]: 3.45 Free Lambda: 2.10 Free [place] [facility]/Lambda ratio: 1.64 Specimen(s) Received Serum IEP Fee Codes(s): 1; 43339-63 FERRITINon 01-11-2024 Ferritin [Mass/Vol] 47 ng/mL Normal 11-307 [facility] Comment on above: Performed By: #### 1 3965-9, CBCA, FEPR, THYR, 2276-4, 2132-9, 2284-8, IMEL, SPE #### [facility] ([id number]) [address] [place] [address] #### MTHFRS #### [facility] ([id number]) [address] [place] [address] 01864 Folate [Mass/Vol]on 01-11-20 24 FOLIC ACID >25.0 Normal >5.8 [facility] Comment on above: Result Comment: NEW REFERENCE RANGE Performed By: #### 1 3965-9, CBCA, FEPR, THYR, 2276-4, 2132-9, 2284-8, IMEL, SPE #### [facility] ([id number]) [address] [place] [address] #### MTHFRS #### [facility] ([id number]) [address] [place] [address] 30140 HGB A1C (GLYCO-HGB)on 2023 Glucose [Mass/Vol] 108 mg/dL Normal [facility] Comment on above: Performed By: #### 1 3965-9, CBCA, FEPR, THYR, 6-4, 2132-07, 2284-06, IMEL, SPE #### [facility] ([id number]) [address] [facility] [address] [place] [address] #### MTHFRS #### [facility] ([id number]) [address] [place] [address] 12504 HbA1c (Bld) [Mass fraction] 5.4 % Normal 4.4-5.6 [facility] Comment on above: Result Comment: NOTE ADA [...] THYR, 2276-02, 2132-07, 2284-06, IMEL, SPE #### [facility] ([id number]) [address] [address] #### MTHFRS #### [facility] ([id number]) [address] [place] [address] 01035 Homocysteine [Moles/Vol]on 0 01-11-2024 HOMOCYSTEINE 14.23 mcmol/L Normal 3.36-20.44 [facility] Comment on above: Performed By: #### 1 3965-9, CBCA, FEPR, THYR, 6-4, 2132-07, 2284-06, IMEL, SPE #### [facility] ([id number]) [address] [facility], [address] [place] [address] #### MTHFRS #### [facility] ([id number]) [address] [place] [address] 93852 IMMUNOELECTROPHORESIS FOR TH ERAPY MONITORINGon 01-11-2024 FREE IRASEMA/LAMBD RATIO 1.64 Normal 0.26-1.65 [facility] Comment on above: Performed By: #### 1 3965-9, CBCA, FEPR, THYR, 2276-4, 2-9, 2284-8, IMEL, SPE #### [facility] ([id number]) [address], [address] [place] [address] #### MTHFRS #### [facility] ([id number]) [address] [place] [address] 12246 FREE KAPPA LT CHAINS 3.45 mg/dL High 0.33-1.94 [facility] Comment on above: Performed By: #### 1 3965-9, CBCA, FEPR, THYR, 6-4, 2131-9, 4-8, IMEL, SPE #### [facility] ([id number]) [address], [address] [place] [address] #### MTHFRS #### [facility] ([id number]) [address] [place] [address] 62964 FREE LAMBDA LT CHAINS 2.10 mg/dL Normal 0.57-2.63 [facility] Comment on above: Performed By: #### 1 3965-9, CBCA, FEPR, THYR, 6-4, 2-9, 2284-8, IMEL, SPE #### [facility] ([id number]) [address], [address] [place] [address] #### MTHFRS #### [facility] ([id number]) [address] [place] [address] 69445 IgA [Mass/Vol] 225 mg/dL Normal 68-378 [facility] Comment on above: Performed By: #### 1 3965-9, CBCA, FEPR, THYR, 2276-4, 2-9, 2284-8, IMEL, SPE #### [facility] ([id number]) [address], [address] [place] [address] #### MTHFRS #### [facility] ([id number]) [address] [place] [address] 06555 IgG [Mass/Vol] 652 mg/dL Normal 635-1741 [facility] Comment on above: Performed By: #### 1 3965-9, CBCA, FEPR, THYR, 2276-4, 2131-9, 2284-8, IMEL, SPE #### [facility] ([id number]) [address], [address] [place] [address] #### MTHFRS #### [facility] ([id number]) [address] [place] [address] 92633 IgM [Mass/Vol] 64 mg/dL Normal 45-281 [facility] Comment on above: Performed By: #### 1 3965-9, CBCA, FEPR, THYR, 2276-4, 2-9, 2284-8, IMEL, SPE #### [facility] ([id number]) [address], [address] [place] [address] #### MTHFRS #### [facility] ([id number]) [address] [place] [address] 56727 IMMUNE PROFILE INTERP SEE SEPARATE REPORT Normal [facility] Comment on above: Performed By: #### 1 3965-9, CBCA, FEPR, THYR, 2276-4, 2-9, 2284-8, IMEL, SPE #### [facility] ([id number]) [address], [address] [place] [address] #### MTHFRS #### [facility] ([id number]) [address] [place] [address] 85739 IRON PROFILEon 01-11-2024 Iron [Mass/Vol] 100 ug/dL Normal 50-170 [facility] Comment on above: Performed By: #### 1 3965-9, CBCA, FEPR, THYR, 2276-4, 2-9, 2284-8, IMEL, SPE #### [facility] ([id number]) [address] [facility], [address] [place] [address] #### MTHFRS #### [facility] ([id number]) [address] [place] [address] 09572 IRON BINDING 438 ug/dL High 250-425 [facility] Comment on above: Performed By: #### 1 3965-9, CBCA, FEPR, THYR, 2276-4, 2131-9, 2284-8, IMEL, SPE #### [facility] ([id number]) [address] [facility], [address] [place] [address] #### MTHFRS #### [facility] ([id number]) [address] [place] [address] 89538 IRON SATURATION 23 % SATURATION Normal 15-50 [facility] Comment on above: Performed By: #### 1 3965-9, CBCA, FEPR, THYR, 6-4, 2131-9, 2284-8, IMEL, SPE #### [facility] ([id number]) [address] [facility], [address] [place] [address] #### MTHFRS #### [facility] ([id number]) [address] [place] [address] 14234 MTHFRon 01-11-2024 MTHFR INTERPRETATION SEE NOTE Normal [facility] Comment on above: Result Comment: NOTE Indication for testing: Determine genetic contribution to hyperhomocysteinemia. Negative: Neither of the common MTHFR gene variants tested, c.665C>T (previously designated C677T) and c.1286A>C (previously designated G6342O), were detected. Other causes of elevated homocysteine [...] has an effect on cardiovascular disease. The [employer] Practice Guidelines indicate [...] a contributing factor to hyperhomocysteinemia. Variants Tested: c.665C>T(p.Rjc144Rzv) and c.1286A>C(p.Pcf895Kvo). (legacy names C677T and O3803U, respectively). Clinical Sensitivity: Undefined; hyperhomocysteinemia is caused [...] developed and its performance characteristics determined by [employer]. It has not been cleared or approved by the [place] Food and Drug Administration. This test was performed in a CLIA certified laboratory and is intended for clinical purposes. Counseling and informed consent are recommended for genetic testing. Consent forms are available online. Performed By: [facility] [address] [place] [address] Quilting Supervisor: Jacob Sparks MD, PhD CLIA Number: [id number] Performed By: #### 1 3965-9, CBCA, FEPR, THYR, 2276-02, 2132-07, 2284-06, IMEL, SPE #### [facility] ([id number]) [address] [facility], [address] [place] [address] #### MTHFRS #### [facility] ([id number]) [address] [place] [address], [place] [address] MTHFR MUT K3484SH Negative Normal [facility] Comment on above: Performed By: #### 1 3965-9, CBCA, FEPR, THYR, 2276-02, 2132-07, 2284-06, IMEL, SPE #### [facility] ([id number]) [address] [facility], [address] [place] [address] #### MTHFRS #### [facility] ([id number]) [address] [place] [address], [place] [address] MTHFR MUT C665CT Negative Normal [facility] Comment on above: Performed By: #### 1 3965-9, CBCA, FEPR, THYR, 2276-02, 2132-07, 2284-06, IMEL, SPE #### [facility] ([id number]) [address] [facility], [address] [place] [address] #### MTHFRS #### [facility] ([id number]) [address] [place] [address], [place] [address] MTHFR PCR SPECIMEN WHOLE BLOOD Normal [facility] Comment on above: Performed By: #### 1 3965-9, CBCA, FEPR, THYR, 2276-02, 2132-07, 2284-06, IMEL, SPE #### [facility] ([id number]) [address] [facility], [address] [place] [address] #### MTHFRS #### [facility] ([id number]) [address] [place] [address] 24755 Methylmalonate [Moles/Vol]on 01-11-2024 MMA QN 0.14 umol/L Normal <=0.40 [facility] Comment on above: Result Comment: NOTE This test was developed and its performance characteristics determined by [facility] [place] ([facility]). It has not been cleared or approved by the FDA. [facility] is regulated under CLIA as qualified to perform high-complexity testing. This test is used for clinical purposes. It should not be regarded as investigational or for research. Test Performed By: [facility] [address] [place] [address] Quilting Supervisor: Berry Larsen III, M.D. CLIA #[id number] Performed By: #### 1 3965-9, CBCA, FEPR, THYR, 6-4, 2131-9, 4-8, IMEL, SPE #### [facility] ([id number]) [address] [place] [address], [address] [place] [address] #### MTHFRS #### [facility] ([id number]) [address] [place] [address] 50744 SERUM PROTEIN ELECTROPHORESI Son 01-11-2024 Albumin [Mass/Vol] 4.0 g/dL Normal 3.4-5.3 [facility] Comment on above: Performed By: #### 1 3965-9, CBCA, FEPR, THYR, 2276-4, 2-9, 2284-8, IMEL, SPE #### [facility] ([id number]) [address] [place] [address], [address] [place] [address] #### MTHFRS #### [facility] ([id number]) [address] [place] [address] 72297 ALPHA 1 GLOBULIN 0.3 g/dL Normal 0.1-0.4 [facility] Comment on above: Performed By: #### 1 3965-9, CBCA, FEPR, THYR, 6-4, 2131-9, 4-8, IMEL, SPE #### [facility] ([id number]) [address], [address] [place] [address] #### MTHFRS #### [facility] ([id number]) [address] [place] [address] 33782 ALPHA 2 GLOBULIN 0.8 g/dL Normal 0.4-1.1 [facility] Comment on above: Performed By: #### 1 3965-9, CBCA, FEPR, THYR, 6-4, 9, 2283-8, IMEL, SPE #### [facility] ([id number]) [address] [facility], [address] [place] [address] #### MTHFRS #### [facility] ([id number]) [address] [place] [address] 11950 BETA GLOBULIN 0.8 g/dL Normal 0.5-1.2 [facility] Comment on above: Performed By: #### 1 3965-9, CBCA, FEPR, THYR, 6-4, 9, 2283-8, IMEL, SPE #### [facility] ([id number]) [address] [place] [address] #### MTHFRS #### [facility] ([id number]) [address] [place] [address] 33884 GAMMA GLOBULIN 0.7 g/dL Normal 0.5-1.6 [facility] Comment on above: Performed By: #### 1 3965-9, CBCA, FEPR, THYR, 6-4, 2131-9, 4-8, IMEL, SPE #### [facility] ([id number]) [address] [place] [address] #### MTHFRS #### [facility] ([id number]) [address] [place] [address] 69606 PROT. ELECTROPHORESIS INTERP Unremarkable protein distribution, no monoclonal bands. Normal [facility] Comment on above: Performed By: #### 1 3965-9, CBCA, FEPR, THYR, 2276-4, 2132-9, 2284-8, IMEL, SPE #### [facility] ([id number]) [address] [facility], [address] [place] [address] #### MTHFRS #### [facility] ([id number]) [address] [place] [address] 88419 Protein [Mass/Vol] 6.5 g/dL Normal 6.0-8.0 [facility] Comment on above: Performed By: #### 1 3965-9, CBCA, FEPR, THYR, 2276-4, 2132-9, 2284-8, IMEL, SPE #### [facility] ([id number]) [address] [facility], [address] [place] [address] #### MTHFRS #### [facility] ([id number]) [address] [place] [address] 53977 THYROID PROFILEon 01-11-2024 Free T4 [Mass/Vol] 1.09 ng/dL Normal 0.61-1.60 [facility] Comment on above: Performed By: #### 1 3965-9, CBCA, FEPR, THYR, 2276-4, 2132-9, 2284-8, IMEL, SPE #### [facility] ([id number]) [address] [facility], [address] [place] [address] #### MTHFRS #### [facility] ([id number]) [address] [place] [address] 42518 TSH 0.60 uIU/mL Normal 0.49-4.67 [facility] Comment on above: Performed By: #### 1 3965-9, CBCA, FEPR, THYR, 2276-4, 2132-9, 2284-8, IMEL, SPE #### [facility] ([id number]) [address] [place] [address] #### MTHFRS #### [facility] ([id number]) [address] [place] [address] VITAMIN B12on 01-11-2024 Cobalamin (Vitamin B12) [Mass/Vol] 407 pg/mL Normal 180-[address] [facility] Comment on above: Performed By: #### 1 3965-9, CBCA, FEPR, THYR, 2276-4, 2132-9, 2284-8, IMEL, SPE #### [facility] ([id number]) [address] [place] [address] #### MTHFRS #### [facility] ([id number]) [address] [place] [address] DEXA SCAN CENTRAL SKELETALon 12-06-2023 DEXA SCAN CENTRAL SKELETAL DEXA SCAN [place] SKELETAL CLINICAL INFORMATION: Age-related osteoporosis without current [...] on 12/06/2023 2:10 AM Normal [facility] CT Abdomen/Pelvis w + w/o Co ntraston [...] by Felix Dominguez on 12/07/2022 1159 Normal [facility] XR HAND LEFT (MIN 3 VIEWS)on 11-07-2022 [...] Matt Cowart MD 11/07/[address] [facility] XR HAND LEFT (MIN 3 [...] Matt Cowart MD 11/07/[address] [facility] XR Chest 2 Views*on 09-10-20 [...] by Bartolome Monson on 09/10/2022 1507 Normal [facility] Complete Blood Count with Au to Diffon 12-11-2021 Basophils (Bld) [#/Vol] 0.07 10*3/uL Normal 0.00-0.20 [facility] Comment on above: Performed By: #### C MP, CBCAD #### [facility] [address] [place], [place] [id number] Basophils/100 WBC (Bld) 0.9 % Normal [facility] Comment on above: Performed By: #### C MP, CBCAD #### [facility] [address] [place], [place] [id number] Eosinophils (Bld) [#/Vol] 0.17 10*3/uL Normal 0.02-0.50 [facility] Comment on above: Performed By: #### C MP, CBCAD #### [facility] [address] [place], [place] [id number] Eosinophils/100 WBC (Bld) 2.3 % Normal [facility] Comment on above: Performed By: #### C MP, CBCAD #### [facility] [address] [place], [place] [id number] Erythrocyte distribution width (RBC) [Ratio] 16.4 % High 11.0-15.0 [facility] Comment on above: Performed By: #### C MP, CBCAD #### [facility] [address] [place], [place] [id number] Hematocrit (Bld) [Volume fraction] 42.9 % Normal 35.0-47.0 [facility] Comment on above: Performed By: #### C MP, CBCAD #### [facility] [address] [place], [place] [id number] Hemoglobin (Bld) [Mass/Vol] 13.5 g/dL Normal 11.6-15.5 [facility] Comment on above: Performed By: #### C MP, CBCAD #### [facility] [address] [place], [place] [id number] Lymphocytes (Bld) [#/Vol] 2.7 10*3/uL Normal 0.9-3.9 [facility] Comment on above: Performed By: #### C MP, CBCAD #### [facility] [address] [place], [place] [id number] Lymphocytes/100 WBC (Bld) 36.1 % Normal [facility] Comment on above: Performed By: #### C MP, CBCAD #### [facility] [address], [place] [id number] MCH (RBC) [Entitic mass] 27.7 pg Normal 27.0-33.0 [facility] Comment on above: Performed By: #### C MP, CBCAD #### [facility] [address], [place] [id number] MCHC (RBC) [Mass/Vol] 31.5 g/dL Low 32.0-36.0 [facility] Comment on above: Performed By: #### C MP, CBCAD #### [facility] [address], [place] [id number] MCV (RBC) [Entitic vol] 88 fL Normal 80-100 [facility] Comment on above: Performed By: #### C MP, CBCAD #### [facility] [address], [place] [id number] Monocytes (Bld) [#/Vol] 0.8 10*3/uL Normal 0.2-0.9 [facility] Comment on above: Performed By: #### C MP, CBCAD #### [facility] [address], [place] [id number] Monocytes/100 WBC (Bld) 10.8 % Normal [facility] Comment on above: Performed By: #### C MP, CBCAD #### [facility] [address], [place] [id number] Neutrophils (Bld) [#/Vol] 3.7 10*3/uL Normal 1.5-7.8 [facility] Comment on above: Performed By: #### C MP, CBCAD #### [facility] [address], [place] [id number] Neutrophils/100 WBC (Bld) 49.2 % Normal [facility] Comment on above: Performed By: #### C MP, CBCAD #### [facility] [address], [place] [id number] Platelet mean volume (Bld) [Entitic vol] 11.00 fL Normal 7.50-12.50 [facility] Comment on above: Performed By: #### C MP, CBCAD #### [facility] [address], [place] [id number] Platelets (Bld) [#/Vol] 246 10*3/uL Normal 140-400 [facility] Comment on above: Performed By: #### C MP, CBCAD #### [facility] [address], [place] [id number] RBC (Bld) [#/Vol] 4.88 10*6/uL Normal 3.90-5.20 [facility] Comment on above: Performed By: #### C MP, CBCAD #### [facility] [address], [place] [id number] RDW-SD 53.1 fL High 37.0-50.0 [facility] Comment on above: Performed By: #### C MP, CBCAD #### [facility] [address], [place] [id number] WBC (Bld) [#/Vol] 7.5 10*3/uL Normal 3.8-11.0 [facility] Comment on above: Performed By: #### C MP, CBCAD #### [facility] [address], [place] [id number] Comprehensive Metabolic Pane gadiel 12-11-2021 Albumin [Mass/Vol] 4.2 g/dL Normal 3.6-5.1 [facility] Comment on above: Performed By: #### C MP, CBCAD #### [facility] [address], [place] [id number] Albumin/Globulin [Mass ratio] 1.7 {ratio} Normal 1.0-2.5 [facility] Specialist Comment on above: Performed By: #### C MP, CBCAD #### [facility] [address], [place] [id number] ALP [Catalytic activity/Vol] 71 U/L Normal 35-119 [facility] Specialist Comment on above: Performed By: #### C MP, CBCAD #### [facility] [address], [place] [id number] ALT [Catalytic activity/Vol] 12 U/L Normal 6-33 [facility] Specialist Comment on above: Result Comment: 10/22 Female reference range changed. Performed By: #### C MP, CBCAD #### [facility] [address], [place] [id number] Anion gap [Moles/Vol] 18 mmol/L Normal 12-20 [facility] Comment on above: Result Comment: Effe ctive 11/27/2019 reference range changed. Performed By: #### C MP, CBCAD #### [facility] [address], [place] [id number] AST [Catalytic activity/Vol] 15 U/L Normal 9-34 [facility] Comment on above: Performed By: #### C MP, CBCAD #### [facility] [address], [place] [id number] Bilirubin [Mass/Vol] 0.33 mg/dL Normal 0.30-1.20 [facility] Comment on above: Performed By: #### C MP, CBCAD #### [facility] [address], [place] [id number] BUN/CREA 35 Ratio High 6-22 [facility] Comment on above: Performed By: #### C MP, CBCAD #### [facility] [address], [place] [id number] Calcium [Mass/Vol] 9.4 mg/dL Normal 8.6-10.2 [facility] Comment on above: Performed By: #### C MP, CBCAD #### [facility] [address], [place] [id number] Chloride [Moles/Vol] 106 mmol/L Normal 98-107 [facility] Comment on above: Performed By: #### C MP, CBCAD #### [facility] [address], [place] [id number] CO2 [Moles/Vol] 24 mmol/L Normal 20-31 [facility] Comment on above: Performed By: #### C MP, CBCAD #### [facility] [address], [place] [id number] Creatinine [Mass/Vol] 0.9 mg/dL Normal 0.6-1.4 [facility] Comment on above: Performed By: #### C MP, CBCAD #### [facility] [address], [place] [id number] eGFRAA 70 mL/min/1.73m2 Normal >60 [facility] Comment on above: Performed By: #### C MP, CBCAD #### [facility] [address], [place] [id number] eGFRNAA 58 mL/min/1.73m2 Low >60 [facility] Comment on above: Performed By: #### C MP, CBCAD #### [facility] [address], [place] [id number] Globulin (S) [Mass/Vol] 2.5 g/dL Normal 1.9-3.7 [facility] Comment on above: Performed By: #### C MP, CBCAD #### [facility] [address], [place] [id number] Glucose [Mass/Vol] 84 mg/dL Normal 65-99 [facility] Comment on above: Result Comment: For FASTING Glucose --- ADA reference ranges: Normal 65-99 mg/dl Prediabetes 100-125 Diabetes >/= 126 Performed By: #### C MP, CBCAD #### [facility] [address], [place] [id number] Potassium [Moles/Vol] 4.3 mmol/L Normal 3.5-5.5 [facility] Comment on above: Performed By: #### C MP, CBCAD #### [facility] [address], [place] [id number] Protein [Mass/Vol] 6.7 g/dL Normal 6.1-8.1 [facility] Comment on above: Performed By: #### C MP, CBCAD #### [facility] [address], [place] [id number] Sodium [Moles/Vol] 143 mmol/L Normal 135-146 [facility] Comment on above: Performed By: #### C MP, CBCAD #### [facility] [address], [place] [id number] Urea nitrogen [Mass/Vol] 33 mg/dL High 7-25 [facility] Specialist Comment on above: Performed By: #### C MP, CBCAD #### [facility] [address], [place] [id number] Calciumon 06-20-2019 Calcium [Mass/Vol] 10.0 mg/dL Normal 8.4-10.2 [facility] Comment on above: Performed By: #### 1 030, 1035, 4500, 4510, 4520, 4581 #### [facility] Unless Otherwise Noted [address] [place] [address] / COLA #4724/CLIA # [id number] Creatinineon 06-20-2019 Creatinine [Mass/Vol] 0.9 mg/dL Normal 0.5-1.0 [facility] Comment on above: Performed By: #### 1 030, 1035, 4500, 4510, 4520, 4581 #### [facility] Unless Otherwise Noted [address] [address] / COLA #4724/CLIA # [id number] Creatinine [Mass/Vol] 74.8 Kg Normal [facility] Comment on above: Performed By: #### 1 030, 1035, 4500, 4510, 4520, 4581 #### [facility] Unless Otherwise Noted [address] [address] / COLA #4724/CLIA # [id number] Creatinine [Mass/Vol] 64.8 ml/m1.73 Normal [facility] and Diabetes [facility] Comment on above: Performed By: #### 1 030, 1035, 4500, 4510, 4520, 4581 #### [facility] Unless Otherwise Noted [address] [address] / COLA #4724/CLIA # [id number] Creatinine [Mass/Vol] 65.1 ml/m1.73 Normal [facility] and Diabetes [facility] Comment on above: Performed By: #### 1 030, 1035, 4500, 4510, 4520, 4581 #### [facility] Unless Otherwise Noted [address] [address] / COLA #4724/CLIA # [id number] Creatinine [Mass/Vol] 78.7 ml/m1.73 Normal [facility] Comment on above: Performed By: #### 1 030, 1035, 4500, 4510, 4520, 4581 #### [facility] and [facility] Unless Otherwise Noted [address] [address] / COLA #4724/CLIA # [id number] FT3on 06-20-2019 FT3 2.80 pg/mL Normal 2.45-5.93 [facility] Diabetes [facility] Comment on above: Performed By: #### 1 030, 1035, 4500, 4510, 4520, 4581 #### [facility] and Diabetes [facility] Unless Otherwise Noted [address] [address] / COLA #4724/CLIA # [id number] FT4on 06-20-2019 Free T4 [Mass/Vol] 1.93 ng/dL Normal 0.78-2.44 [facility] Diabetes [facility] Comment on above: Performed By: #### 1 030, 1035, 4500, 4510, 4520, 4581 #### [facility] Unless Otherwise Noted [address] [address] / COLA #4724/CLIA # [id number] TSHon 06-20-2019 TSH Qn 0.57 uIU/ml Normal 0.47-4.68 [facility] Diabetes [facility] Comment on above: Performed By: #### 1 030, 1035, 4500, 4510, 4520, 4581 #### [facility] and Diabetes [facility] Unless Otherwise Noted [address] [address] / COLA #4724/CLIA # [id number] VITAMIN D 25on 06-20-2019 VITAMIN D 25 51.5 ng/ml Normal 30.0-100.0 [facility] Comment on above: Result Comment: Defi cient <20 Insufficient 20-<30 Sufficient 30-100 Potiential Toxicity >100 Performed By: #### 1 030, 1035, 4500, 4510, 4541, 4581 #### [facility] Unless Otherwise Noted [address] [facility] [address] [place] [address] / COLA #4724/ABISAI # [id number] Basic Metabolic Profon 05-06 (cont.) Normal [facility] Comment on above: Result Comment: Aver age GFR for 70 or more years old: 75 mL/min/1.73sq mChronic Kidney Disease: <60 mL/min/1.73sq mKidney failure: <15 mL/min/1.73sq meGFR calculated using average adult body mass. Additional eGFR calculator available at:http://www.[place]ax/multiple_crcl_2011.htmPerformed at [facility] [address] [place] [address] Performed By: #### C DP, BMP ####[facility] [place] [address] Anion gap 14 mmol/L Normal 9-17 [facility] Comment on above: Performed By: #### C DP, BMP ####[facility] [place] [address] Calcium 9.6 mg/dL Normal 8.6-10.4 [facility] Comment on above: Performed By: #### C DP, BMP ####[facility] [place] [address] Chloride 106 mmol/L Normal 98-107 [facility] Comment on above: Performed By: #### C DP, BMP ####[facility] [facility] [place] [address] CO2 26 mmol/L Normal 20-31 [facility] Comment on above: Performed By: #### C DP, BMP ####[facility] [place] [address] Creatinine 0.91 mg/dL High 0.50-0.90 [facility] Comment on above: Performed By: #### C DP, BMP ####[facility] [place] [address] eGFR (non-black) mL/min/{1.73_m2} Normal >60 [facility] Comment on above: Performed By: #### C DP, BMP ####[address] [address] Glucose mass conc 99 mg/dL Normal 70-99 [facility] Comment on above: Performed By: #### C DP, BMP ####[address] [address] Potassium molar conc 4.2 mmol/L Normal 3.7-5.3 [facility] Comment on above: Performed By: #### C DP, BMP ####[address] [address] Sodium 146 mmol/L High 135-144 [facility] Comment on above: Performed By: #### C DP, BMP ####[address] [address] Urea nitrogen 21 mg/dL Normal 8-23 [facility] Comment on above: Performed By: #### C DP, BMP ####[address] [address] BUN/CRE Ratio NOT REPORTED Normal 9-20 [facility] Comment on above: Performed By: #### C DP, BMP ####[address] [address] Staging: NOT REPORTED Normal [facility] Comment on above: Performed By: #### C DP, BMP ####[address] [address] CBC with Diffon 05-06-2018 Abs. Basophil 0.10 k/uL Normal 0.0-0.2 [facility] Comment on above: Result Comment: Perf ormed at [facility] [address] [place] [address] Performed By: #### C DP, BMP ####[address] [address] Abs.Neutrophil (Seg) 4.00 k/uL Normal 1.3-9.1 [facility] Comment on above: Performed By: #### C DP, BMP ####[address] [address] Basophils/100 WBC Auto (Bld) 1 % Normal 0-2 [facility] Comment on above: Performed By: #### C DP, BMP ####[address] [address] Eosinophils 0.20 10*3/uL Normal 0.0-0.4 [facility] Comment on above: Performed By: #### C DP, BMP ####[address] [address] Eosinophils/100 leukocytes 2 % Normal 0-4 [facility] Comment on above: Performed By: #### C DP, BMP ####[address] [address] Erythrocyte distribution width Auto Ratio (RBC) 13.9 % Normal 11.5-14.9 [facility] Comment on above: Performed By: #### C DP, BMP ####[address] [place] [address] Erythrocytes (RBC) 4.68 10*6/uL Normal 4.0-5.2 [facility] Comment on above: Performed By: #### C DP, BMP ####[facility] [place] [address].[place] [address] Hematocrit (HCT) 41.8 % Normal 36-46 [facility] Comment on above: Performed By: #### C DP, BMP ####[facility] [place] [address].[place] [address] Hemoglobin mass conc (Bld) 13.7 g/dL Normal 12.0-16.0 [facility] Comment on above: Performed By: #### C DP, BMP ####[address] [address] Lymphocytes 3.20 10*3/uL Normal 1.0-4.8 [facility] Comment on above: Performed By: #### C DP, BMP ####[facility] [place] [address].[place] [address] Lymphocytes/100 leukocytes 39 % Normal 24-44 [facility] Comment on above: Performed By: #### C DP, BMP ####[facility] [place] [address].[place] [address] MCH 29.3 pg Normal 26-34 [facility] Comment on above: Performed By: #### C DP, BMP ####[facility] [place] [address] MCHC mass conc (RBC) 32.8 g/dL Normal 31-37 [facility] Comment on above: Performed By: #### C DP, BMP ####[facility] [place] [address].[place] [address] MCV 89.3 fL Normal 80-100 [facility] Comment on above: Performed By: #### C DP, BMP ####[facility] [place] [address] Monocytes 0.90 10*3/uL Normal 0.1-1.3 [facility] Comment on above: Performed By: #### C DP, BMP ####[facility] [place] [address] Monocytes/100 leukocytes 11 % High 1-7 [facility] Comment on above: Performed By: #### C DP, BMP ####[address] [address] Neutrophil (Seg) 47 % Normal 36-66 [facility] Comment on above: Performed By: #### C DP, BMP ####[address] [address] Platelet mean volume (PMV) 10.3 fL Normal 6.0-12.0 [facility] Comment on above: Performed By: #### C DP, BMP ####[address] [address] Platelets 232 10*3/uL Normal 150-450 [facility] Comment on above: Performed By: #### C DP, BMP ####[address] [address] WBC (Leukocytes) 8.4 10*3/uL Normal 3.5-11.0 [facility] Comment on above: Performed By: #### C DP, BMP ####[address] [address] Auto Diff Performed NOT REPORTED Normal [facility] Comment on above: Performed By: #### C DP, BMP ####[address] [address] Erythrocyte morphology NOT REPORTED Normal [facility] Comment on above: Performed By: #### C DP, BMP ####[facility] [facility] [place] [address] Erythrocytes (RBC) NOT REPORTED Normal [facility] Comment on above: Performed By: #### C DP, BMP ####[facility] [place] [address].[place] [address] Granulocytes/100 WBC (Bld) NOT REPORTED Normal 0.00-0.30 [facility] Comment on above: Performed By: #### C DP, BMP ####[facility] [place] [address].[place] [address] Immature granulocytes #/vol (Bld) NOT REPORTED Normal 0 [facility] Comment on above: Performed By: #### C DP, BMP ####[facility] [facility] [place] [address] Platelets NOT REPORTED Normal [facility] Comment on above: Performed By: #### C DP, BMP ####[facility] [facility] [place] [address] WBC Morphology NOT REPORTED Normal [facility] Comment on above: Performed By: #### C DP, BMP ####[facility] [place] [address].[place] [address] CNCOon 02-01-2018 CNCO Letter Carmenza vail, [facility] [address] [facility] [place], [place] [address] Xlfib 2017Rena Hernandez, XFS[address] [place], [place] [address]NAME: ANGELA RUTH [facility] NO.: [id number] Mary:I recently evaluated your patient, Angela Ruth. As you recall, is a 72-year-old woman who complains of low back pain and, to alesser degree, bilateral leg pain. She has undergone three lumbar surgeriesin the past including an L3-L5 decompression with fusion and fixation [id number]. Conservative measures to date have not given [...] office. Thank you for this consultation.Sincerely,Kalia Gill M.D.IHK:[facility] Normal [facility] CNOVon 01-27-2018 CNOV Office Visit (SPNSMN) -------ANGELA RUTH ([id number]) 1945 FDate Time Provider Department01/27/18 12:40 PM KALIA GILL SPNSMN During your visit today, we recorded the following information about you: Pulse Respiration Blood pressure Weight 85/minute 18/minute 141/65 76.2 kg Height 1.651 Claudio Gill MD 01/27/2018 4:15 PM AddendumSPINE SURGERY NEW PATIENTPCP: No PCPREFERRING PROVIDER: Dr. aMyte Ruth is a 72 year old female [...] 3 previous lumbar spine surgeries (L4-5 hemidiscetomy, ([id number])) L3-5 decompression fusion and fixation (Beaks: 2009) [...] legDERMATOMAL DISTRIBUTION:Right: L5 and S1Left: L5 and [id number] STATUS: Impaired Community DistancesPREVIOUS CONSERVATIVE TREATMENTS:OTC NSAIDS [...] Wt 76.2 kg (168 lb) BMI 27.96 kg/l2BSBCVLH APPEARANCE: Well nourished, well developed, and no [...] : 1:07 PM PAGER:PTFReferring Provider: RENA HERNANDEZ [[id number]]Allergies As of Date: 01/27/2018 Noted Allergy ReactionLINCOSAMIDES [...] [M54.40, G89.29]Order(s):XR LUMBAR MOTION 4V AP/LAT/ FLEX/EXT [[id number]] Order #: [id number] FUTUREPrescriptions as of 01/27/2018 Sig: ACETAMINOPHEN 500 [...] Jan 27, 2018 11:58 AM Received from: [facility] [place] Received Sig: Take 500-1,000 mg by mouthevery 6 hours as needed. PROAIR HFA 90 MCG/ACTUATION AEROSOL INHALER >> Valentine [place], [place] 01/27/2018 11:58 AM >> VALENTINE MADRID Sabra Jan 27, 2018 11:58 AM Received from: External Pharmacy AMITRIPTYLINE 100 MG TABLET >> Valentine [place] 01/27/2018 11:58 AM >> VALENTINE MADRID Sabra Jan 27, 2018 11:58 AM Received from: [place] Received Sig: Take 50 mg by mouth nightlyIndications: Treatment to Prevent Migraine Headaches ATORVASTATIN 40 MG TABLET >> Valentine [place], [place] 01/27/2018 11:58 AM >> VALENTINE MADRID Jan 27, 2018 11:58 AM Received from: [facility] Received Sig: Take 1 tablet (40 mgtotal) [...] Jan 27, 2018 11:58 AM [facility] Received Si,000 Units beforebreakfast Indications: Vitamin D Deficiency. DICLOFENAC SODIUM 75 MG TABLET,DELAYED RELEASE >> Valentine [place] 01/27/2018 11:58 AM >> VALENTINE MADRID Jan 27, 2018 11:58 AM Received from: [employer] [facility] Received Sig: Take 75 mg by mouth 2(two) times a day as needed. COAL PICKER advises up to two tablets two days a week formigraines ESCITALOPRAM 20 MG TABLET >> Valentine [place] 01/27/2018 11:58 AM >> VALENTINE MADRID Jan 27, 2018 11:58 AM Received from: [place], [place] Received Sig: Take 20 mg by [...] Jan 27, 2018 11:58 AM Received from: [place] Received Sig: Take 160 mg by mouth daily. Indications: High Amount of Fats in the Blood FEXOFENADINE 180 MG TABLET >> Valentine [place] 01/27/2018 11:58 AM >> VALENTINE MADRID Jan 27, 2018 11:58 AM [facility] Received Sig: Take 180 mg by mouthbefore breakfast Indications: Allergic Rhinitis. LEVOTHYROXINE 150 MCG TABLET >> Valentine [place], [place] 01/27/2018 11:58 AM >> VALENTINE MADRID Sabra Jan 27, 2018 11:58 AM Received from: External Pharmacy MECLIZINE 25 MG TABLET >> Valentine [place] 01/27/2018 11:58 AM >> VALENTINE MADRID Sabra Jan 27, 2018 11:58 AM Received from: [facility] [place] Received Sig: Take 25 mg by mouth 3 timesdaily as needed OMEPRAZOLE 20 MG CAPSULE,DELAYED RELEASE >> Valentine [place] 01/27/2018 11:58 AM >> VALENTINE MADRID Jan 27, 2018 11:58 AM Received from: [facility] Received Si mg before breakfastIndications: Gastroesophageal Reflux. ACETAMINOPHEN-ISOMETHEPTENE -DICHLORALPHENAZONE 325 MG-65 MG-100 MG ORAL CAP >> Valentine [place], [place] 01/27/2018 11:58 AM >> VALENTINE MADRID Sabra Jan 27, 2018 11:58 AM Received from: [employer] [facility] Received Si (four) times a day asneeded for migraine. CYCLOBENZAPRINE 5 MG TABLET >> Valentine [place], [place] 01/27/2018 11:58 AM >> VALENTINE MADRID Sabra Jan 27, 2018 11:58 AM Received from: [facility] Received Sig: Take 10 mg by mouth 3(three) times a day as needed for muscle spasms. EZETIMIBE 10 MG-SIMVASTATIN 40 MG TABLET >> Valentine [place], [place] 01/27/2018 11:58 AM >> VALENTINE MADRID Sabra Jan 27, 2018 11:58 AM Received from: [facility] [place] Received Sig: Take 1 tablet by mouthnightly. ESOMEPRAZOLE MAGNESIUM 40 MG CAPSULE,DELAYED RELEASE >> Valentine [place], [place] 01/27/2018 11:58 AM >> VALENTINE MADRID Sabra Jan 27, 2018 11:58 AM Received from: [facility] [place] Received Sig: Take 40 mg by mouth everymorning (before breakfast). Indications: Gastroesophageal Reflux Disease METOCLOPRAMIDE 10 MG TABLET >> Valentine [place], [place] 01/27/2018 12:02 PM >> VALENTINE MADRID Sabra Jan 27, 2018 12:02 PM Received from: [facility] Received Sig: Take 10 mg by mouthcontinuous MAGNESIUM GLUCONATE 27 MG (500 MG) TABLET >> Valentine [place], [place] 01/27/2018 12:02 PM >> VALENTINE MADRID Sabra Jan 27, 2018 12:02 PM Received from: [facility] Received Sig: Take 500 mg by mouth 2times daily TOPIRAMATE 100 MG TABLET >> Valentine [place], [place] 01/27/2018 12:05 PM >> VALENTINE MADRID Sabra Jan 27, 2018 12:05 PM Received from: External PharmacyProblem List As Of Date 01/27/2018 Noted Resolved Chronic midline low back pain with sciatica [M5*INVALID FOR* Status:Closed by KALIA GILL MD on 01/27/18 [facility] PROGRESSon 01-27-2018 PROGRESS HNO ID: [id number] thor: Angela Lake RtService: (none)Author Type: (none)Type: Progress NotesFiled: 01/27/2018 2:25 PMNote Text: Radiology Service Progress NotePATIENT NAME: Angela RuthMRN: [id number] OF SERVICE: January 27, 2018TIME: 2:25 PMPATIENT IDENTITY VERIFICATION COMPLETED USING TWO (2) METHODS: Patientconfirmed name verbally and Date of .PATIENT GENDER DATA: Female. status: : NoBreastfeeding status: NO.PATIENT RELEVANT IMPLANT DATA REVIEWED: Not ApplicableRADIOLOGY DEPARTMENT: General X-ray: Exam(s) Completed: Spine X-Ray(s):Lumbar AP / LAT / L5-S1 / FLEX-EXTPERIPHERAL IV DATA: Not applicableSIGNED BY: Angela Lake [facility]tH[facility]2017 2:25 PM [facility] PROGRESS HNO ID: [id number] thor: Kalia GillService: (none)Author Type: PhysicianType: Progress NotesFiled: 01/27/2018 4:15 [...] hemidiscetomy,(Cedric 1989)) L3-5 decompression fusion and fixation ([place]oy: 2009) andlumbar decompression (Alexy) 2017.She has also [...] legDERMATOMAL DISTRIBUTION:Right: L5 and S1Left: L5 and [id number] STATUS: Impaired Community DistancesPREVIOUS CONSERVATIVE TREATMENTS:OTC NSAIDS [...] Wt 76.2 kg (168 lb) BMI 27.96 kg/l3OZOKWHD APPEARANCE: Well nourished, well developed, and no [...] 27, 2018 : 1:07 PM PAGER:PTF Normal [facility] XR LUMBAR 4V AP/LAT/ FLEX/EX Ton [...] is unremarkable.IMPRESSION:POS TOPERATIVE AND DEGENERATIVE CHANGES DESCRIBEDTranscriptionist: SEVERINOB Transcribe Date/Time: Jan 27 2018 2:50PDictated by : CARMENCITA DALTON MDThis examination was interpreted and the report reviewed and electronically signed by: CARMENCITA DALTON MD on Jan 27 2018 2:52PM [id number] Normal [facility] VA-MR HIP LT WO CONT IMPORTo n 11-01-2017 VA-MR HIP LT WO CONT IMPORT Images were obtained outside of [facility] [id number] Normal [facility] MR-MR LUMBAR SPINE W WO CONT IMPORTon 09-13-2017 MR-MR LUMBAR SPINE W WO CONT IMPORT Images were obtained outside of [facility] [id number] Normal [facility] Vital Signs Date Time Vital Sign Value Performing Clinician Faci lity 01-07-2024 10:29-0500 Body height 160 cm Yoanna Dorsey [employer]UIT [employer]ADER[employer]SAMPLE COLLECTOR Work Phone: [facility] 01-07-2024 10:29-0500 Body mass index (BMI) [Ratio] 27.63 kg/m2 Yoanna Dorsey FRUIT GRADER-SAMPLE COLLECTOR Work Phone: [facility] [place] [facility] 01-07-2024 10:29-0500 Body weight 70.76 kg Yoanna Willian FRUIT GRADER-SAMPLE COLLECTOR Work Phone: [facility] 01-07-2024 10:29-0500 Diastolic blood pressure 78 mm[Hg] Yoanna Dorsey FRUIT GRADER-SAMPLE COLLECTOR [facility] 01-07-2024 10:29-0500 Heart rate 80 /min Yoanna Dorsey FRUIT GRADER-SAMPLE COLLECTOR Work Phone: [facility] [place] [facility] 01-07-2024 10:29-0500 Systolic blood pressure 124 mm[Hg] Yoanna Dorsey FRUIT GRADER-SAMPLE COLLECTOR Work Phone: [facility] Encounters Encounter Date Encounter Type Care Provider Facility Start: 02-11-2024 End: 02-12-2024 Emergency department patient visit JUAN A [facility] Start: 02-10-2024 Orders Only Ryan aquino MD Work Phone: [facility] [place] [facility] Comment on above: Essential hypertensi on Start: 02-09-2024 Refill [facility] Start: 02-07-2024 End: 02-08-2024 ambulatory Adelfo Hansen MD Facility:[facility] Start: 01-18-2024 End: 01-18-2024 ambulatory RIA SNYDER Not Available Start: 01-12-2024 End: 01-12-2024 ambulatory RIA SNYDER Not Available Start: 01-11-2024 End: 01-12-2024 ambulatory [facility] Start: 01-10-2024 End: 01-11-2024 ambulatory Adelfo Hansen MD Facility:[facility] Start: 01-07-2024 End: 01-07-[address] [facility] Start: 01-07-2024 End: 01-07-2024 [facility]-SAMPLE COLLECTOR Work Phone: [facility] [place] [facility] Comment on above: Migraine without aur a and without status migrainosus, not intractable (Primary Dx); Bilateral occipital neuralgia; Essential tremor; Cervicalgia; Trapezius muscle spasm; Balance problem; Psychophysiological insomnia; Polyneuropathy; Prediabetes; Essential (primary) hypertension; Abnormal level of blood mineral; Decreased hearing of both ears Start: 01-06-2024 End: 01-06-2024 ambulatory RIA SNYDER Not Available Start: 01-06-2024 End: 01-06-2024 ambulatory Ria Snyder RECOVERY ASSISTANT Work Phone: [facility] Comment on above: General weakness (Pr imary Dx); History of falling Start: 01-04-2024 Bamboo flowsheet Ria Lopezig ht RECOVERY ASSISTANT Work Phone: [facility] Start: 01-04-2024 Bamboo flowsheet Ria Wrig ht RECOVERY ASSISTANT Work Phone: [facility] Start: 01-04-2024 End: 01-04-2024 ambulatory RIA SNYDER Not Available Start: 01-04-2024 End: 01-04-2024 ambulatory Riarandell Snyder RECOVERY ASSISTANT Work Phone: [facility] Comment on above: General weakness (Pr imary Dx); History of falling Start: 01-03-2024 Refill Bia Cao M Minor Work Phone: [facility] Comment on above: Mixed hyperlipidemia (CMS/HCC) (Primary Dx); Stress incontinence of urine Start: 12-31-2023 End: 12-31-2023 ambulatory RIA SNYDER Not Available Start: 12-30-2023 Chart abstracting Elmer soto PT Work Phone: [facility] Start: 12-28-2023 End: 12-28-2023 ambulatory RIA SNYDER Not Available Start: 12-23-2023 End: 12-23-2023 ambulatory RIA SNYDER Not Available Start: 12-23-2023 End: 12-23-2023 ambulatory Ria Snyder RECOVERY ASSISTANT Work Phone: [facility] Comment on above: General weakness (Pr imary Dx); History of falling Start: 12-21-2023 End: 12-21-2023 ambulatory RIA SNYDER Not Available Start: 12-16-2023 End: 12-16-2023 ambulatory RIA SNYDER Not Available Start: 12-13-2023 Refill John aggarwal MD Work Phone: [facility] [place] [facility] Start: 12-08-2023 End: 12-08-2023 ambulatory ELMER PETTIT Not Available Start: 12-07-2023 End: 12-07-2023 ambulatory SANTO GARCIA Not Available Start: 12-06-2023 End: 12-06-2023 ambulatory BIA CAO Not Available Start: 12-03-2023 End: 12-04-2023 ambulatory JOHN JOHNSON [facility] Start: 11-29-2023 End: 11-29-[address] [facility] Start: 11-23-2023 End: 11-24-2023 ambulatory BIA [...] End: 07-20-2023 ambulatory Adelfo Hansen MD Facility:[facility] [place] Start: 07-05-2023 End: 07-06-2023 ambulatory Adelfo Hansen MD Facility:[facility] Start: 10-12-2022 End: 10-12-2022 ambulatory BIA Mccormick [facility] Start: 09-28-2022 End: 09-28-2022 ambulatory [facility] Anny [facility] Start: 05-16-2018 End: 05-16-2018 Ambulatory AUDREY Guillermo KORY [facility] Start: 05-06-2018 End: 05-11-2018 Ambulatory LENNY PEDRAZA [facility] Start: 05-02-2018 Patient encounter status Antonietta Johnson MD Work Phone: [facility] [place] [employer] Work Phone: Start: 01-27-2018 End: 01-27-2018 Ambulatory KALIA Foster [facility] Start: 01-27-2018 End: 01-31-2018 Ambulatory KALIA H [facility] Procedures Date Procedure Procedure Detail Performing Clinician Start: 01-07-2024 Adult depression scr eening assessment Yoanna Dorsey FRUIT GRADER-SAMPLE COLLECTOR Work Phone: Start: 11-29-2023 Follow-up visit Follow-up LALIT LEACH Start: 04-23-2023 Adult depression scr eening assessment John Johnson MD Work Phone: Start: 05-16-2018 DISCHARGE PATIENT LENNY PEDRAZA Start: 05-16-2018 BEDREST LENNY PAIZ Start: 05-16-2018 Continuous pulse oximetry LENNY CELESTEConnie Start: 05-16-2018 ENCOURAGE DEEP BREAT KELSEA AND COUGHING LENNY PEDRAZA Start: 05-16-2018 NOTIFY PHYSICIAN (SPECIFY) LENNY BRIGGSTANISHA Start: 05-16-2018 NURSING COMMUNICATION Adali CABALLERO MILO Start: 05-16-2018 INITIATE OXYGEN THER APY PROTOCOL LENNY PEDRAZA Start: 05-16-2018 INSERT PERIPHERAL IV MA JORDAN PEDRAZA Start: 05-16-2018 VITAL SIGNS LENNY PAIZ Start: 05-06-2018 Basic metabolic pane l calcium total LENNY PEDRAZA Start: 05-06-2018 Blood count complete auto&auto difrntl wbc LENNY PEDRAZA Plan of Treatment Date Care Activity Detail Author Start: 01-07-2025 Adult BMI Screening Adult BMI Screening [facility] Start: 01-07-2025 Depression Screening Depression Screening [facility] Start: 01-07-2025 Tobacco Screening Tobacco Screening [facility] Start: 12-06-2024 Medicare Annual Wellness (AWV) Medicare Annual Wellness (AWV) [facility] Start: 11-29-2024 Adult BMI Screening Adult BMI Screening [facility] Start: 11-29-2024 Tobacco Screening Tobacco Screening [facility] Start: 10-01-2024 Fall Risk Screening Fall Risk Screening [facility] Start: 07-10-2024 End: 07-10-2024 Patient encounter procedure 07/10/2024 11:00 AM EDT Office Visit [facility] [address] [place] [address] Yoanna Dorsey [facility] [address] [place] [address] [facility] Start: 05-21-2024 Influenza vaccination Influenza Vaccine (#1) [facility] Comment on above: Postponed from 07/23/2023 (Patient Refus ed) Start: 04-23-2024 Depression Screening Depression Screening [facility] Start: 04-11-2024 End: 04-11-2024 Patient encounter procedure 04/11/2024 2:45 PM EDT Off ice Visit [facility] [address] [place] [address] John Johnson MD [address] [place] [address] [facility] Start: 04-03-2024 End: 04-03-2024 Patient encounter procedure 04/03/2024 11:20 AM EDT Office Visit [facility] [address] [place] [phone] Bia Cao MD [address] [place], [place] [id number] [facility] Start: 02-09-2024 End: 02-09-2024 Patient encounter procedure 02/09/2024 11:00 AM EDT Office Visit [facility] [address] [facility] [address] [place] [phone] Ryan Dallas MD [address] [facility] [place] [address] [facility] Start: 01-20-2024 End: 01-20-2024 ambulatory 01/20/2024 11:00 AM EST Treatment [facility] [address] [place] [phone] Elmer Pettit, PT [address] [place] [address] [facility] Start: 01-18-2024 End: 01-18-2024 ambulatory 01/18/2024 11:30 AM EST Treatment [facility] [address] [place] [phone] Ria Snyder, RECOVERY ASSISTANT [address] [facility] [place] [address] [facility] Start: 01-14-2024 End: 01-14-2024 ambulatory 01/14/2024 1:00 PM EST Treatment [facility] [address] [place] [phone] Ria Snyder, RECOVERY ASSISTANT [address] [place] [address] [facility] Start: 01-12-2024 End: 01-12-2024 ambulatory 01/12/2024 12:30 PM EST Treatment [facility] [address] [place] [phone] Ria Snyder, RECOVERY ASSISTANT [address] [place] [address] [facility] Start: 01-11-2024 End: 01-11-2024 Patient encounter procedure 01/11/2024 11:00 AM EST Office Visit [facility] [address] [address] [place] [address] Yoanna Dorsey APRN-SAMPLE COLLECTOR [address] [place] [address] [facility] Start: 01-06-2024 End: 01-06-2024 ambulatory [facility] Start: 01-04-2024 End: 01-04-2024 ambulatory 01/04/2024 11:30 AM EST Treatment [facility] [address] [place] [phone] Ria Snyder, RECOVERY ASSISTANT [address] [place] [address] [facility] Start: 12-31-2023 End: 12-31-2023 ambulatory 12/31/2023 10:00 AM EST Treatment [facility] [address] [place] [phone] Ria Snyder, RECOVERY ASSISTANT [address] [place] [address] [facility] Start: 12-30-2023 End: 12-30-2023 ambulatory 12/30/2023 11:30 AM EST Treatment [facility] [address] [place] [phone] Elmer Pettit, PT [address] [place] [address] [facility] Start: 12-28-2023 End: 12-28-2023 ambulatory 12/28/2023 11:30 AM EST Treatment [facility] [address] [place] [address] Ria Snyder, RECOVERY ASSISTANT [address] [place] [address] [facility] Start: 07-23-2023 COVID-19 Vaccine ( season) COVID-19 Vaccine ( season) [facility] Start: 07-23-2023 Influenza vaccination Influenza Vaccine [facility] Start: 08-21-2021 DTaP,Tdap and Td Vaccines (2 - Td or Tdap) DTaP,Tdap and Td Vaccines (2 - Td or Tdap) [facility] Start: 01-17-2010 Administration of varicella zoster vaccine Zoster (Shingles) Vaccine (2 of 3) [facility] Start: 1963 Adult BMI Follow Up Plan Adult BMI Follow Up Plan [facility] Start: 1945 Medicare Annual Wellness Visit Medicare Annual Wellness Visit [facility] End: 01-07-2025 CBC W Auto Differential panel - Blood CBC auto differential Lab Routine Essential tremor Balance problem Polyneuropathy 1 Occurrences starting 01/07/2024 until 01/07/2025 [facility] Comment on above: 1 Occurrences starting 01/07/2024 until 01/07/2025 End: 01-07-2025 Cyanocobalamin vitamin b-12 Vitamin B12 Lab Routine Balance problem Polyneuropathy 1 Occurrences starting 01/07/2024 until 01/07/2025 [employer] Comment on above: 1 Occurrences starting 01/07/2024 until 01/07/2025 End: 01-07-2025 Ferritin [Mass/volume] in Serum or Plasma Ferritin Lab Routine Polyneuropathy Abnormal level of blood mineral 1 Occurrences starting 01/07/2024 until 01/07/2025 [employer] Comment on above: 1 Occurrences starting 01/07/2024 until 01/07/2025 End: 01-07-2025 Folate [Mass/volume] in Serum or Plasma Folate Serum Lab Routine Balance problem Polyneuropathy 1 Occurrences starting 01/07/2024 until 01/07/2025 [employer] Comment on above: 1 Occurrences starting 01/07/2024 until 01/07/2025 End: 01-07-2025 Hemoglobin A1c/Hemoglobin.total in Blood Hemoglobin A1c Lab Routine Balance problem Polyneuropathy Prediabetes 1 Occurrences starting 01/07/2024 until 01/07/2025 [employer] Comment on above: 1 Occurrences starting 01/07/2024 until 01/07/2025 End: 01-07-2025 Homocysteine total Homocysteine total Lab Routine Balance problem Polyneuropathy Essential (primary) hypertension 1 Occurrences starting 01/07/2024 until 01/07/2025 [employer] Comment on above: 1 Occurrences starting 01/07/2024 until 01/07/2025 End: 01-07-2025 Immunoelectrophoresis for Therapy Monitoring Immunoelectrophoresis for Therapy Monitoring Lab Routine Balance problem Polyneuropathy 1 Occurrences starting 01/07/2024 until 01/07/2025 [employer] Comment on above: 1 Occurrences starting 01/07/2024 until 01/07/2025 End: 01-07-2025 Iron and TIBC Iron and TIBC Lab Routine Essential tremor Balance problem Polyneuropathy Abnormal level of blood mineral 1 Occurrences starting 01/07/2024 until 01/07/2025 [employer] Comment on above: 1 Occurrences starting 01/07/2024 until 01/07/2025 End: 01-07-2025 Methylenetetrahydrofolate reductase Methylenetetrahydrofolate reductase Lab Routine Balance problem Polyneuropathy 1 Occurrences starting 01/07/2024 until 01/07/2025 [facility] Comment on above: 1 Occurrences starting 01/07/2024 until 01/07/2025 End: 01-07-2025 Methylmalonic acid screen Methylmalonic acid screen La b Routine Balance problem Polyneuropathy 1 Occurrences starting 01/07/2024 until 01/07/2025 [facility]: Comment on above: 1 Occurrences starting 01/07/2024 until 01/07/2025 End: 01-07-2025 Protein electrophoresis, serum Protein electrophoresis, serum Lab Routine Balance problem Polyneuropathy 1 Occurrences starting 01/07/2024 until 01/07/2025 [facility] Comment on above: 1 Occurrences starting 01/07/2024 until 01/07/2025 End: 01-07-2025 Thyroid profile includes TSH FT4 Thyroid profile includes TSH FT4 Lab Routine Balance problem Polyneuropathy Prediabetes 1 Occurrences starting 01/07/2024 until 01/07/2025 [facility] Comment on above: 1 Occurrences starting 01/07/2024 until 01/07/2025 Immunizations Immunization Date Immunization Notes Care Provider [facility] 03-12-2021 COVID-19, mRNA, LNP- S, PF, 100mcg/0.5mL Dose John Johnson MD Work Phone: [facility] 03-11-2021 Moderna SARS-CoV-2 Vaccination Ria Snyder RECOVERY ASSISTANT Work Phone: [facility] 02-12-2021 COVID-19, mRNA, LNP- S, PF, 100mcg/0.5mL Dose John Johnson MD Work Phone: [facility] 02-11-2021 Moderna SARS-CoV-2 Vaccination Ria Snyder PTA Work Phone: [facility] 11-12-2020 pneumococcal conjuga te vaccine, 13 valent John Johnson MD Work Phone: [facility] 09-17-2020 influenza, high dose seasonal, preservative-free John Johnson MD Work Phone: [facility] 09-17-2020 Seasonal, quadrivale nt, recombinant, injectable influenza vaccine, preservative free John Johnson MD Work Phone: [facility] 09-17-2020 influenza virus vacc ine, unspecified formulation John Johnson MD Work Phone: [facility] 08-30-2019 Seasonal, quadrivale nt, recombinant, injectable influenza vaccine, preservative free John Johnson MD Work Phone: [facility] 08-29-2018 influenza, injectabl e, quadrivalent, preservative free John Johnson MD Work Phone: [facility] 08-22-2015 influenza, seasonal, injectable, preservative free Ria Snyder RECOVERY ASSISTANT Work Phone: [facility] 08-13-2015 pneumococcal polysaccharide vaccine, 23 valent Ria Snyder RECOVERY ASSISTANT Work Phone: [facility] 08-21-2011 tetanus and diphther ia toxoids, adsorbed, preservative free, for adult use (5 Lf of tetanus toxoid and 2 Lf of diphtheria toxoid) John Johnson MD Work Phone: [facility] 11-22-2009 zoster vaccine, live Juan Snyder RECOVERY ASSISTANT Work Phone: [facility] 11-22-2009 zoster vaccine, unspecified formulation John Johnson MD Work Phone: [facility] Payers Date Payer Category Payer Private Health Insurance 2021 Medicare [id number] 2021 Medicare [id number] 2014 Medicare [id number] 1945 Unknown [id number] 2.16. 840.1.080543.3.579.2.175 1945 Unknown [id number] 2.16. 840.1.693703.3.579.2.175 -08-1945 Unknown [id number] 2.16.84 0.1.852505.3.579.2.1286 --1945 Unknown [id number] 2.16.8 40.1.111536.3.579.2.1286 -1945 Unknown [id number] 2.16.84 0.1.174031.3.579.2.1259 -194 Unknown [id number] 2.16.84 0.1.016041.3.579.2.1259 -194 Unknown [id number] 2.16.84 0.1.783485.3.579.2.1259 -194 Unknown [id number] 2.16.84 0.1.194039.3.579.2.1259 -194 Unknown [id number] 2.16.84 0.1.879935.3.579.2.1259 -194 Unknown [id number] 2.16.84 0.1.907950.3.579.2.1259 --194 Unknown [id number] 2.16.84 0.1.024843.3.579.2.1259 -194 Unknown [id number] 2.16.84 0.1.633178.3.579.2.1259 -1945 Unknown [id number] 2.16.84 0.1.890505.3.579.2.1259 -1945 Unknown [id number] 2.16.84 0.1.582270.3.579.2.1259 -08-1945 Unknown [id number] 2.16.84 0.1.451563.3.579.2.1259 -1945 Unknown [id number] 2.16.84 0.1.960389.3.579.2.1259 -08-1945 Unknown [id number] 2.16.840 .1.790974.3.579.2.1259 -194 Unknown [id number] 2.16.840 .1.494065.3.579.2.1259 -194 Unknown [id number] 2.16.840 .1.131366.3.579.2.1259 194 Unknown [id number] 2.16.840 .1.605744.3.579.2.1259 194 Unknown [id number] 2.16.840 .1.422159.3.579.2.1259 1945 Unknown [id number] 2.16. 840.1.985427.3.579.2.196 1945 Unknown [id number] 2.16. 840.1.976107.3.579.2.196 1945 Unknown [id number] 2.16. 840.1.986376.3.579.2. 1945 Unknown [id number] 2.16. 840.1.538280.3.579.2.196 1945 Unknown [id number] 2.16. 840.1.932443.3.579.2.196 1945 Unknown [id number] 2.16.8 40.1.936054.3.579.2.1286 -1945 Unknown [id number] 2.16.8 40.1.316175.3.579.2.1286 -1945 Unknown [id number] 2.16.8 40.1.901004.3.579.2.1286 -1945 Unknown [id number] 2.16.8 40.1.495671.3.579.2.1286 -1945 Unknown [id number] 2.16.8 40.1.465117.3.579.2.1286 -194 Unknown [id number] 2.16.8 40.1.309631.3.579.2.1286 -194 Unknown [id number] 2.16.84 0.1.379961.3.579.2.1286 Social History Date Type Detail Facility Start: 06-04-2023 End: 11-29-2023 Tobacco smoking status NHIS Never smoked tobacco [facility] History of tobacco use Passive smoker [facility] Start: 06-04-2023 End: 11-29-2023 Tobacco use and exposure Smokeless tobacco non-user [facility] Start: 11-29-2023 End: 01-07-2024 Alcohol intake Current non-drinker of alcohol (finding) [facility] Start: 12-03-2020 End: 11-29-2023 Alcohol intake [facility] Start: 12-03-2020 End: 11-29-2023 Tobacco use panel [facility] Adolescent depressio n screening assessment 0 [facility] Start: 1945 Sex Assigned At Female [facility] Start: 05-22-2021 Gender identity Identifies as female gender (finding) [facility] Start: 05-22-2021 Sexual orientation Heterosexual (finding) [facility] Start: 12-07-2023 Alcohol intake Current drinker of alcohol (finding) [facility] Start: 05-04-2023 Alcohol Comment caffeine: occasional [facility] Start: 1945 Sex Assigned At Not on file [facility] Medical Equipment Procedure Code Equipment Code Equipment Origin al Text Equipment Identifier Dates Patch Dura 1x1in Drmtrx-[place] + Clgn Rgnrt Membr Strl - [id number] Start: 07-03-2021 Goals Date Patient Goal Desired Activity /State Personal health goal Comment on above: Formatting of this n ote might be different from the original. Evaluation of progress towards goal: safe transition from hospital to home with support of her friends/neighbors Clinical Notes 12-13-2023 to 02-09-2024 Telephone Encounter - Doris Hawkins RN - 02/09/2024 12:18 PM EDTTelephone Encounter - Ryan Dallas MD - 02/09/2024 12:18 PM EDTTelephone Encounter - Doris Hawkins RN - 02/09/2024 12:18 PM EDT Note Date & Type Note Facility 02-09-2024 Miscellaneous Notes Patient called and stated her bp has been elevated. She c/o Headache. 184/92, 224/95 217/93 she took an extra 50mg hydralazine as you have directed PRN and bp 146/78. Please advise going forward. Increase hydralazine to 100 mg twice a day I left patient a voicemail to call me back to verify the dose she is taking now of hydralazine. I spoke to patient and she stated she is taking hydralazine 100mg daily. She is reluctant to try BID as it previously caused hypotension. Patient will try and then keep a bp log. Addended by: DORIS HAWKINS on: 02/10/2024 12:55 PM Modules accepted: Orders documented in this encounter [facility] 02-09-2024 Note Addended by: Anna HAWKINS on: 02/10/2024 12:55 PM Modules accepted: Orders [facility] 02-09-2024 Telephone encounter Note Patient called and stated her bp has been elevated. She c/o Headache. 184/92, 224/95 217/93 she took an extra 50mg hydralazine as you have directed PRN and bp 146/78. Please advise going forward. [facility] 02-09-2024 Telephone encounter Note Increase hydralazine to 100 mg twice a day [facility] 02-09-2024 Telephone encounter Note I left patient a voicemail to call me back to verify the dose she is taking now of hydralazine. [facility] 02-09-2024 Telephone encounter Note I spoke to patient and she stated she is taking hydralazine 100mg daily. She is reluctant to try BID as it previously caused hypotension. Patient will try and then keep a bp log. [facility] 01-07-2024 History of Presen t illness Narrative Images from the original note [...] (migraines) Inderal (tremors) Gabapentin 200 mg nightly Stevenson PRN Occipital nerve blocks (last 03/2021) Tizanidine [...] Breast disorder 4 biopsies Bronchitis 01/01/2017 Cancer ([facility]) Basal cell Carpal tunnel syndrome Cataract Chronic [...] BACK SURGERY Upper Back Surgery BREAST BIOPSY 1999 BREAST SURGERY 1981 2002 Biopsy four times CHOLECYSTECTOMY 2001 COLONOSCOPY w/ bx N/A 07/07/2018 Performed by Lalit Leach MD at [facility] ENDOSCOPY COSMETIC SURGERY 1985 DISCECTOMY 1989 Partial L4-5 EGD 2001 EYE SURGERY 2015 FOOT SURGERY 2009 Reattachment of tendon left foot with bone graft HIP SURGERY 2004 Excision of bursa left hip HYSTERECTOMY 1984 INJECTION BLOCK EPIDURAL STEROID LUMBAR/SACRAL Left L 5,1 NR Left 12/20/2020 Performed by Shubham Clifton MD at [facility] INJECTION BLOCK NERVE MEDIAL BRANCH right C 4/5,5/6 Right 05/22/2022 Performed by Shubham Clifton MD at [place] [facility] INJECTION BLOCK NERVE MEDIAL BRANCH right C 4/5,5/6 Right 04/17/2022 Performed by Shubham Clifton MD at [facility] CAUDAL EPIDURAL WITH CATHETER, STEROID N/A 03/07/2018 Performed by Shubham Clifton MD at [facility] LARGE JOINT BURSA: bilat hip Bilateral 12/10/2017 Performed by Shubham Clifton MD at [facility] MEDIAL BRANCH NERVE BLOCK Bilateral L 4/5, 5/1 Bilateral 06/28/2017 Performed by Shubham Clifton MD at [facility] MEDIAL BRANCH NERVE BLOCK Right L 2/3, 3/4 Right 12/08/2019 Performed by Shubham Clifton MD at [facility] MEDIAL BRANCH NERVE BLOCK RIGHT L23 34 Right 01/19/2020 Performed by Shubham Clifton MD at [facility] SI JOINT Bilateral 04/09/2017 Performed by Shubham Clifton MD at [facility] SI JOINT Bilateral SI Joint Bilateral 05/31/2020 Performed by Shubham Clifton MD at [facility] SI JOINT Left SI JOint Left 01/06/2019 Performed by Shubham Clifton MD at [facility] INJECTION SI JOINT Right SI Joint Right 06/09/2019 Performed by Shubham Clifton MD at [facility] SPINE TRANSFORAMINAL Left L 4, 5 NR Left 09/24/2017 Performed by Shubham Clifton MD at [facility] INJECTION SPINE TRANSFORAMINAL Left L 5,1 Nroot Left 01/08/2023 Performed by Shubham Clifton MD at [facility] SPINE TRANSFORAMINAL Right L 5,1 Nroot Right 11/27/2022 Performed by Shubham Clifton MD at [facility] STEROID EPI 1 WITH SEDATION Left 5,1 NR Left 05/08/2019 Performed by Shubham Clifton MD at [facility] KNEE ARTHROSCOPY 2010, 2013 KNEE SURGERY 2010 2013 Arthroscopy bilateral/repair meniscus right X2, left X1 LAMINECTOMY LUMBAR FORAMENOTOMY MULTI LEVEL L1-2 RIGHT/L2-3 BILATERAL/LUMBAR DRAIN INSERTION N/A 07/03/2021 Performed by Corey Chacon MD at [facility] LAPAROTOMY OOPHERECTOMY Bilateral 1984 LUMBAR DISCECTOMY LUMBAR FUSION 2010 L3-5 LUMBAR LAMINECTOMY MICRO LUMBAR DISCECTOMY L5-S1/ FORAMINOTOMY L5-S1 Left 01/14/2017 Performed by Corey Chacon MD at [facility] OOPHORECTOMY 1983 OTHER SURGICAL HISTORY Knee Arthroscopy With Medial Meniscus Repair OTHER SURGICAL HISTORY Spinal Diskectomy RADIO FREQUENCY ABLATION Left L 4/5, 5/1 Left 12/02/2018 Performed by Shubham Cl[facility]ton MD at [facility] [facility] Left L 4/5, 5/1 Left 07/30/2017 Performed by Shubham Clifton MD at [facility] Left SI joint Left 03/31/2019 Performed by Shubham Clifton MD at [facility] Right L2/3, 3/4 Right 03/29/2020 Performed by Shubham Clifton MD at [facility] SPINAL Left Si joint Left 05/07/2017 Performed by Shubham Clifton MD at [facility] SPINAL Right C 4/5,5/6 Right 06/26/2022 Performed by Shubham Clifton MD at [facility] SPINAL RIGHT SI JOINT Right 05/21/2017 Performed by Shubham Clifton MD at [facility] RELEASE CARPAL TUNNEL Left 11/04/2021 Performed by Corey Chacon MD at [facility] 2011 Right rotator cuff SKIN [...] mg total) by mouth in the morning. gtlvyld-vpkkzexjmjjzb-hxwowxcq (EXCEDRIN MIGRAINE) 250-250-65 mg per tablet Take 1 tablet by mouth every 6 (six) hours as needed for headaches. atorvastatin (LIPITOR) 40 mg tablet Take 1 tablet (40 mg total) by mouth in the morning. buprenorphine (BUTRANS) 7.5 mcg/hour patch weekly Place 1 patch on the skin once a week. niqoqulham-zhnvyntloiigf-vcoy (ESGIC) 50-325-40 mg per tablet Take 1 [...] procedures Referring and communicating with other health patient care technician (not separately reported) Documenting clinical information in the electronic or other health record Independently interpreting results (not separately reported) and communicating results to the patient/family/caregiver Care coordination (not separately reported) - Yoanna Dorsey DNP, APRN-CNP 01/07/24 10:53 AM [facility] 01/07/24 1053 documented in this encounter [facility] 01-07-2024 Instructions CHACE Rayo - 01/07/2024 10:30 [...] earlier if needed. documented in this encounter [facility] 12-13-2023 Miscellaneous Notes Okay to sign and send documented in this encounter [facility] 12-13-2023 Telephone encounter Note Okay to sign and send [facility] Evaluation note Diagnosis General weakness- Primary Other malaise and fatigue History of falling documented in this encounter [facility] HealthcareEvaluation note* Diagnosis Mixed hyperlipidemia (CMS/HCC)- Primary Mixed hyperlipidemia Stress incontinence of urine documented in this encounter [facility] HealthcareEvaluation note* Diagnosis General weakness- Primary Other malaise and fatigue History of falling documented in this encounter [facility] HealthcareEvaluation note* Diagnosis General weakness- Primary Other malaise and fatigue History of falling documented in this encounter [facility] HealthcareEvaluation note* Diagnosis Migraine without aura and without status [...] of both ears documented in this encounter [facility] SystemEvaluation note* Diagnosis Essential hypertension Unspecified essential hypertension documented in this encounter [facility] SystemEvaluation note* Diagnosis Essential hypertension Unspecified essential hypertension [facility] filed[facility] filedocumented in this [facility] filedocumented in this encounter [facility] System Summary Purpose Family History No Family History Records FoundNo Family History Records FoundNo Family History Records FoundNo Family History Records FoundNo Family History Records FoundNo Family History Records FoundNo Family History Records FoundNo Family History Records FoundNo Family History Records FoundNo Family History Records Found Advance Directives No Advanced Directives Records FoundDocuments on File Type Date Recorded Patient International Nurse Expl anation Durable Power of Events And Promotions Assistant 07/16/2021 3:45 PM Living Will 07/16/2021 3:40 [...] Documents on File Type Date Recorded Patient International Nurse Expl anation Durable Power of Events And Promotions Assistant 07/16/2021 3:45 PM Living Will 07/16/2021 3:40 [...] ears Procedures Hearing Evaluation (Audiology) Yoanna Dorsey APRN-SAMPLE COLLECTOR [address] [place] [address] Referral ID Status Reason Start Date Expiration Date V isits Requested Visits Authorized [id number] Pending Review 01/07/2024 01/06/2025 1 1 Additional Source Comments INFORMATION SOURCE (unrecogn ized section and content) DATE CREATED AUTHOR 05/13/2018 [facility] DATE CREATED AUTHOR AUTHOR'S ORGANIZ ATION 05/16/2018 [facility] DATE CREATED AUTHOR AUTHOR'S ORGANIZ ATION [facility] DATE CREATED AUTHOR AUTHOR'S ORGANIZ ATION 11/13/2022 [facility] DATE CREATED AUTHOR AUTHOR'S ORGANIZ ATION 12/07/2022 [facility] Specialist DATE CREATED AUTHOR AUTHOR'S ORGANIZ ATION 12/04/2023 [facility] DATE CREATED AUTHOR AUTHOR'S ORGANIZ ATION 01/09/2024 [facility] DATE CREATED AUTHOR AUTHOR'S ORGANIZ ATION 01/20/2024 [facility] Specialists EPIC DATE CREATED AUTHOR AUTHOR'S ORGANIZ ATION 02/12/2024 [facility] DATE CREATED AUTHOR AUTHOR'S ORGANIZ ATION 02/13/2024 [facility] Reason for Visit (unrecogniz ed section and content) Reason Onset Date Comments Med Refill 12/13/2023 Specialty Diagnoses / Procedures Referred By Contac t Referred To Contact Physical Therapy Diagnoses Muscle weakness (generalized) Procedures TREATMENT Bia Cao MD [address] [place] [address] Elmer Pettit, PT [address] [place] [address] Referral ID Status Reason Start Date Expiration Date V isits Requested Visits Authorized [id number] Authorized 12/08/2023 06/05/2024 99 99 Reason Comments Med Refill Care Teams (unrecognized sec tion and content) Range Manager Relationship Specialty Start Date End Date Bia Cao MD [address] [place] [address] PCP - General Family Medicine 02/05/23 Range Manager Relationship Specialty Start Date End Date Jacob Viveros PCP - [employer] 11/22/22 Bia Cao MD [address] [place] [address] PCP - General Family Medicine 04/29/23 Range Manager Relationship Specialty Start Date End Date Jacob Viveros PCP - [employer] 11/22/22 Bia Cao MD [address] [place] [address] PCP - General Family Medicine 04/29/23 Range Manager Relationship Specialty Start Date End Date Jacob Viveros PCP - [employer] 11/22/22 Bia Cao MD [address] [place] [address] PCP - General Family Medicine 04/29/23 Range Manager Relationship Specialty Start Date End Date Jacob Viveros PCP - [employer] 11/22/22 Bia Cao MD [address] [place] [address] PCP - General Family Medicine 04/29/23 Range Manager Relationship Specialty Start Date End Date Jacob Viveros PCP - [employer] 11/22/22 Bia Cao MD [address] [place] [address] PCP - General Family Medicine 04/29/23 Range Manager Relationship Specialty Start Date End Date Jacob Viveros [facility]CP - [facility] 11/22/22 Bia Cao MD [address] [facility] [place] [address] PCP - General [facility] 04/29/23 Range Manager Relationship Specialty Start Date End Date Bia Cao MD [address] [place] [address] PCP - [facility] Medicine 02/05/23 Range Manager Relationship Specialty Start Date End Date Bia Cao MD [address] [facility] [place] [address] PCP - General [facility] 02/05/23 Range Manager Relationship Specialty Start Date End Date Bia Cao MD [address] [place] [address] PCP - General [facility] 02/05/23 FOR RECORDS PERTAINING TO PATIENTS WHO [...] BE BASED ON THE PRIMARY CLINICAL RECORDS. [facility] [email or web address] [facility]. provides no warranty or guarantee of the accuracy or completeness of information in this document.
--- NOTE | 2024-02-16 11:40 | P.CN_ITS ---
Consult Note: HPI Data of Consult Patient: known to practice within the last 3 years Requesting Physician: Nisa Galarza NP Primary Care Provider: TRUE DAVIS Consult Narrative Reason for consult: f/u Narrative: Angela Ruth a pleasant 78 year old female presents for evaluation and management of chronic neck pain. Patient reports pain today 4/10 ache in right side of neck, pain increases to 8/10 with activity, twisting, bending, lifting, pain improved with lying down. Patient denies numbness tingling and weakness. Patient finds mild to moderate benefit from current medication regimen, without side effects, but continues to have moderate to severe pain impacting ADLs. MAGNO today 36% The patient had significant relief of over 80%, with increased range of motion, decreased pain with provocative maneuvers, and increased ability to perform ADLs after diagnostic right C2-3 C3-4 MBB block #1 and #2.?? cc:: CC: Nisa Galarza NP Review of Systems ROS Status of ROS 10 or more systems reviewed and unremark able except as noted in history and below Musculoskeletal Reports: back pain and neck pain PFSH PFSH Medical History TMJ (dislocation of temporomandibular joint) ?S03.00XA - Dislocation of jaw, unspecified side, initial encounter (ICD-10) Neck pain ?M54.2 - Cervicalgia (ICD-10) Back pain ?M54.9 - Dorsalgia, unspecified (ICD-10) Osteoarthritis ?M19.90 - Unspecified osteoarthritis, unspecified site (ICD-10) H/O psychiatric care ?Z92.89 - Personal history of other medical treatment (ICD-10) Heartburn ?R12 - Heartburn (ICD-10) Acid reflux ?K21.9 - Gastro-esophageal reflux disease without esophagitis (ICD-10) Hypothyroid ?E03.9 - Hypothyroidism, unspecified (ICD-10) Kidney stones ?N20.0 - Calculus of kidney (ICD-10) Asthma ?J45.909 - Unspecified asthma, uncomplicated (ICD-10) High cholesterol ?E78.00 - Pure hypercholesterolemia, unspecified (ICD-10) Hypertension ?I10 - Essential (primary) hypertension (ICD-10) Surgical History H/O shoulder surgery ?Z98.890 - Other specified postprocedural states (ICD-10) H/O excision of hemangioma ?Z98.890 - Other specified postprocedural states (ICD-10) ?Z86.018 - Personal history of other benign neoplasm (ICD-10) H/O basal cell carcinoma excision ?Z98.890 - Other specified postprocedural states (ICD-10) ?Z85.828 - Personal history of other malignant neoplasm of skin (ICD-10) H/O lumbosacral spine surgery ?Z98.890 - Other specified postprocedural states (ICD-10) H/O foot surgery ?Z98.890 - Other specified postprocedural states (ICD-10) H/O hand surgery ?Z98.890 - Other specified postprocedural states (ICD-10) H/O wrist surgery ?Z98.890 - Other specified postprocedural states (ICD-10) History of cholecystectomy ?Z90.49 - Acquired absence of other specified parts of digestive tract (ICD- 10) H/O breast biopsy ?Z98.890 - Other specified postprocedural states (ICD-10) History of appendectomy ?Z90.49 - Acquired absence of other specified parts of digestive tract (ICD- 10) History of tonsillectomy and adenoidectomy ?Z90.89 - Acquired absence of other organs (ICD-10) Meds Home Medications and Allergies Home Medications ?Medication ?Instructions ?Recorded ?Confirmed ?Type acetaminophen 650 mg 1,300 mg PO Q8H PRN pain 07/07/23 02/07/24 History tablet,extended release (Arthritis Pain Relief (acetaminophen) ER) albuterol 90 mcg/actuation aerosol 90 mcg inhalation .every 4 hours 07/07/23 02/07/24 History inhaler PRN shortness of breath or wheezing alendronate 35 mg tablet 70 mg PO QWEEK 07/07/23 02/07/24 History amitriptyline 50 mg tablet 50 mg PO DAILY 07/07/23 02/07/24 History ascorbic acid (vitamin C) 500 mg 500 mg PO BID 07/07/23 02/07/24 History tablet,extended release (C Complex) aspirin 81 mg tablet,delayed 81 mg PO DAILY 07/07/23 02/07/24 History release (Adult Aspirin Regimen) atorvastatin 40 mg tablet 40 mg PO DAILY 07/07/23 02/07/24 History calcium carbonate 600 mg calcium 600 mg PO DAILY 07/07/23 02/07/24 History (1,500 mg) tablet (Calcium) carvedilol 25 mg tablet 25 mg PO BID 07/07/23 02/07/24 History cholecalciferol (vitamin D3) 50 200 mcg PO DAILY 07/07/23 02/07/24 History mcg (2,000 unit) tablet (Vitamin D3) escitalopram oxalate 20 mg tablet 20 mg PO DAILY 07/07/23 02/07/24 History famotidine 20 mg tablet 20 mg PO DAILY 07/07/23 02/07/24 History fenofibrate 160 mg tablet 160 mg PO DAILY 07/07/23 02/07/24 History fexofenadine 180 mg tablet 180 mg PO DAILY 07/07/23 02/07/24 History hydralazine 100 mg tablet 100 mg PO TID 07/07/23 02/07/24 History ayklixbodyrmd-nrqcdnqfoqciq-vmprlybjjuqcw 2 cap PO 07/07/23 History 65 mg-100 mg-325 mg capsule levothyroxine 150 mcg capsule 150 mcg PO DAILY 07/07/23 02/07/24 History lisinopril 20 1 tab PO DAILY 07/07/23 02/07/24 History mg-hydrochlorothiazide 12.5 mg tablet magnesium 250 mg tablet 250 mg PO DAILY 07/07/23 02/07/24 History jnrczenk-jbh-wxgdc acid 0.4 1 tab PO DAILY 07/07/23 02/07/24 History mg-lycopene 300 mcg-lutein 250 mcg tablet (Centrum Silver) omeprazole 40 mg capsule,delayed 40 mg PO DAILY 07/07/23 02/07/24 History release oxybutynin chloride 10 mg 10 mg PO DAILY 07/07/23 02/07/24 History tablet,extended release 24 hr tizanidine 4 mg tablet 4 mg PO BID PRN muscle spasticity 07/07/23 02/07/24 History buprenorphine 7.5 mcg/hour weekly 1 patch transdermal QWEEK #4 ea 07/19/23 02/07/24 Rx transdermal patch (Butrans) Allergies Allergy/AdvReac Type Severity Reaction Status Date / Time adhesive tape Allergy Verified 02/07/24 10:34 Influenza Virus Vaccines Allergy Verified 02/07/24 10:34 lincomycin [From Lincocin] Allergy Verified 02/07/24 10:34 Penicillins Allergy Verified 02/07/24 10:34 Exam Constitutional Documenting provider has reviewed patient's vital signs: yes Common normals: no apparent distress, oriented x3, healthy appearing, alert and well nourished General appearance: cooperative HENMT Common normals: normocephalic, hearing grossly normal bilaterally and moist oral mucous membranes Head and scalp: normocephalic Eye Common normals: PERRL Pupil: PERRL Neck & C-Spine Common normals: full ROM General: normal visual inspection Cervical spine: cervical ROM abnormal and pain with cervical ROM Other: negative spurlings positive facet loading right c2-3 c3-4 pain with rotation and flexion strength 5/5 in BUE Chest Common normals: inspection of chest normal Respiratory Common normals: normal respiratory effort, no retractions and no use of accessory muscles Back & Pelvis Lumbar spine/lower back: ROM limited, pain with ROM and straight leg raise negative bilaterally Sacroiliac joints: SI joint(s) abnormal Other: pain over right PSIS, positive eri/fadir thigh thrust gaenslens reports right hip pain with pain radiating into groin, negative internal and exteneral log roll Extremity Common normals: normal to inspection and full ROM Neuro Common normals: oriented x3, CN's II-XII intact bilaterally, moves all extremities, no focal motor deficits, no sensory deficits noted and deep tendon reflexes 2+ bilaterally Sensorium/orientation: alert Gait (neuro): antalgic and assistive device used cane Motor exam: strength 5/5 throughout and no movement abnormalities noted Psych Common normals: mental status grossly normal, thought process normal, cooperative, affect normal, speech normal and activity/motor behavior normal Speech: normal speech Thought process: normal thought process Results Additional Findings Additional findings: If on a controlled substance or opioids, I have checked an [place] report on this patient and there are no aberrancies noted in the prescribing history.??If on a controlled substance or opioid a drug screen was completed and reviewed within the last year, and if there has not been a drug screen completed we ordered one today to monitor higher risk, state monitored pain medication use. As part of providing excellent, safe, comprehensive care, the following was completed at our patient's visit: 1. A medication reconciliation and review to ensure accurate knowledge of current/active medications, including asking our patients to inform us about any irxq-vry-ryzrtlj medications or herbal remedies/nutritional s upplements/alternative remedies. 2. A review to specifically ensure our patients have had annual screening for screening for depression, screening for tobacco use, and screening for unhealthy alcohol use. For concerning screenings had a discussion with the patient, provided patient education, and recommended follow-up with primary care provider when appropriate. If patient noted with a risk of falling, they received education on strength, gait, and balance training to prevent future risk of falling. Assessment and Plan Assessment and Plan (1) Cervical spondylosis: Assessment and Plan: The patient has had over 3 months of moderate to severe neck pain with functional impairment and inadequate response to conservative care including NSAIDS (unless there are contraindication such as concurrent blood thinners), multiple oral or topical pain medications, and home exercise program/physical therapy.? Patient has completed >6 weeks of guided home exercise program and/or formal physical therapy program without relief of their symptoms.? I have reviewed the imaging of the neck and no red flags were identified.? The imaging reveals radiographic findings consistent with cervical facet arthropathy cervical spondylosis We discussed the risks and benefits of the procedure with the patient, and we are NOT planning on using sedation as outlined in the guidelines from Medicare unless there is a documented reason that sedation would be strongly recommended.?? ?The procedure will be completed with fluoroscopic guidance.? (2) Chronic prescription opiate use: Assessment and Plan: I feel these medications are improving the patient's quality of life and allow them to tolerate activities of daily living as well as participate in recreational activity.? The patient does not report intolerable side effects. Th e patient is NOT opioid naive and non-pharmacologic and non-opioid treatment has failed to significantly relieve the patient's pain and improve functionality. The patient has a diagnosis that is related to a somatic or visceral pain etiology. ? ?? I reviewed with the patient the potential risks and side effects with the use of? opioid medications including but not limited to respiratory depression,? sedation, and even . I verified the patient has access to naloxone should? these effects occur. I advised the patient to avoid the use of any other? sedation substances including alcohol, THC, and benzodiazepines while? taking opioid medications due to the risk of compounding side effects and? detrimental outcomes. I reviewed the [facility]AFF [facility] THERAPY RN, pain treatment agreement, urine? drug screen, and opioid start talking forms. The patient was advised to let? their family know they had Naloxone in case they would need to administer? the medication.? ?? A drug screen was completed within the last year, and no aberrancies were noted regarding their use of controlled substances. The patient understands they are subject to the terms and conditions of the pain contract that they have signed. ? ?? I have checked an [place] report on this patient today and there are no aberrancies noted in the prescribing history.? (3) Muscle spasm: (4) Osteoarthritis of right hip: (5) Lumbar postlaminectomy syndrome: (6) Degenerative cervical disc: (7) Sacroiliitis: Plan right C2-3 C3-4 thermal RFA under fluoroscopy, risks vs benefits discussed. wearing butrans patch with mild to moderate improvement, recent blood draw negative and I reviewed with Dr Hansen, likely negative based on threshold. okay to continue butrans 7.5mcg patch q7days continue current medications, tolerating well without side effects continues to find benefit f/u 1 month after procedure
== END 2024-02-16 11:24 | disposition home or self-care (01) ==
LOC: PM 11:23
PROVIDERS: PCP Family Medicine; Visit Provider Nurse Practitioner
DX: M47.812 Spondylosis without myelopathy or radiculopathy, cervical region (principal); Z79.891 Long term (current) use of opiate analgesic; M62.838 Other muscle spasm; M16.11 Unilateral primary osteoarthritis, right hip; M96.1 Postlaminectomy syndrome, not elsewhere classified; M50.30 Other cervical disc degeneration, unspecified cervical region; M46.1 Sacroiliitis, not elsewhere classified
CPT/HCPCS: G0463

== ENCOUNTER 2024-03-13 09:45 | Day surgery (SDC) | payer MEDICARE, SELFPAY ==
[2024-03-13 09:50] VITALS: BP 165/81; PULSE 73; TEMP 36.2; O2SAT 94
[2024-03-13 10:15] VITALS: BP 132/77; PULSE 87; O2SAT 94
[2024-03-13 10:21] VITALS: BP 150/67; PULSE 82; O2SAT 91
[2024-03-13] MEDS: BUPIVACAINE HCL 0.25% PF 25 MG/10 ML VIAL 2 ML INJ (10:27)
--- NOTE | 2024-03-13 10:27 | P.ON_ITS ---
Date of procedure: 03/13/24 Pre-op diagnosis: Cervical spondylosis Post-op diagnosis: same as pre-op Procedure: Procedure: Right C2-3, 3-4 radiofrequency ablation Medications: Bupivacaine 0.25% 3cc, lidocaine 2% 3cc, dexamethasone 10mg The patient was seen and examined in the preoperative holding area.? The site was marked.? Written informed consent was obtained and placed on the chart.? The patient was brought to the medical procedure unit and placed in the prone position.? A timeout was completed verifying correct patient, procedure, positioning, and special requirements.? The skin overlying the target points, the designated medial branch, were prepped and draped in the usual sterile fashion.? The target point was achieved with a 20-gauge 15 cm with a 10 mm curved active tip radiofrequency cannula under direct fluoroscopic visualization.? The needle was inserted at level C2 on the right side. Needle tip position was confirmed with lateral fluoroscopic position.? Motor stimulation was carried out at 2 Hz up to 5 volts with the absence of extremity activity.? This was repeated at level C3, 4 on right side.?? Sensory stimulation was carried out.? Concordant pain was realized at the above- mentioned sites.? Then radiofrequency lesioning was carried out times 90 seconds at 80 degrees times 2 lesions at each level.? The radiofrequency probe was removed prior to cannula removal.? The above-mentioned injectate was placed in 1 mL increments.? The needle was removed.? Insertion sites were covered.? The patient was taken to the postoperative recovery area and monitored for an appropriate length of time before being found suitable for discharge in the company of a responsible adult. Anesthesia: Local Surgeon: Adelfo Hansen Pathology: none sent Condition: stable Disposition: no change
[2024-03-13] MEDS: DEXAMETHASONE SOD PHOS 10 MG/ML VIAL INJ (10:28)
[2024-03-13] MEDS: LIDOCAINE HCL 2% 400 MG/20 ML MDV 4 ML INJ (10:28)
== END 2024-03-13 10:32 | disposition home or self-care (01) ==
LOC: SURGOUT 09:46
PROVIDERS: PCP Family Medicine; Visit Provider Anesthesiology
DX: M47.812 Spondylosis without myelopathy or radiculopathy, cervical region (principal)
CPT/HCPCS: 64633; 64634; J1100

== ENCOUNTER 2024-04-05 11:07 | Outpatient (OUT) | payer MEDICARE, SELFPAY ==
--- NOTE | 2024-04-05 12:27 | P.CN_ITS ---
Consult Note: HPI Data of Consult Patient: known to practice within the last 3 years Requesting Physician: Nisa Galarza NP Primary Care Provider: TRUE DAVIS Consult Narrative Reason for consult: f/u Narrative: Angela Ruth a pleasant 78 year old female presents for evaluation and management of chronic neck pain. Patient reports pain today 4/10 ache in right side of neck, pain increases to 8/10 with activity, twisting, bending, lifting, pain improved with lying down. Patient denies numbness tingling and weakness. Patient finds mild to moderate benefit from current medication regimen, without side effects, but continues to have moderate to severe pain impacting ADLs. MAGNO today 44%. Patient recently underwent right C2/3 C3/4 facet RFA with 20% improvement in pain, reports increase in stiffness spasms burning sensation and sensitivity. Since last visit patient reports a fall which led to an ER visit, advanced imaging that revealed a meningioma, and [facility]. Patient unsure of date of occurrence of initial fall, unsure which doctor she followed with or what their specialty is. We will request records [facility] cc:: CC: Nisa Galarza NP Review of Systems 2 ROS0 Status of ROS 10 or more systems reviewed and unremark able except as noted in history and below Musculoskeletal Reports: neck pain PFSH PFSH Medical History TMJ (dislocation of temporomandibular joint) ?S03.00XA - Dislocation of jaw, unspecified side, initial encounter (ICD-10) Neck pain ?M54.2 - Cervicalgia (ICD-10) Back pain ?M54.9 - Dorsalgia, unspecified (ICD-10) Osteoarthritis ?M19.90 - Unspecified osteoarthritis, unspecified site (ICD-10) H/O psychiatric care ?Z92.89 - Personal history of other medical treatment (ICD-10) Heartburn ?R12 - Heartburn (ICD-10) Acid reflux ?K21.9 - Gastro-esophageal reflux disease without esophagitis (ICD-10) Hypothyroid ?E03.9 - Hypothyroidism, unspecified (ICD-10) Kidney stones ?N20.0 - Calculus of kidney (ICD-10) Asthma ?J45.909 - Unspecified asthma, uncomplicated (ICD-10) High cholesterol ?E78.00 - Pure hypercholesterolemia, unspecified (ICD-10) Hypertension ?I10 - Essential (primary) hypertension (ICD-10) Surgical History H/O shoulder surgery ?Z98.890 - Other specified postprocedural states (ICD-10) H/O excision of hemangioma ?Z98.890 - Other specified postprocedural states (ICD-10) ?Z86.018 - Personal history of other benign neoplasm (ICD-10) H/O basal cell carcinoma excision ?Z98.890 - Other specified postprocedural states (ICD-10) ?Z85.828 - Personal history of other malignant neoplasm of skin (ICD-10) H/O lumbosacral spine surgery ?Z98.890 - Other specified postprocedural states (ICD-10) H/O foot surgery ?Z98.890 - Other specified postprocedural states (ICD-10) H/O hand surgery ?Z98.890 - Other specified postprocedural states (ICD-10) H/O wrist surgery ?Z98.890 - Other specified postprocedural states (ICD-10) History of cholecystectomy ?Z90.49 - Acquired absence of other specified parts of digestive tract (ICD- 10) H/O breast biopsy ?Z98.890 - Other specified postprocedural states (ICD-10) History of appendectomy ?Z90.49 - Acquired absence of other specified parts of digestive tract (ICD- 10) History of tonsillectomy and adenoidectomy ?Z90.89 - Acquired absence of other organs (ICD-10) Meds Home Medications and Allergies Home Medications ?Medication ?Instructions ?Recorded ?Confirmed ?Type acetaminophen 650 mg 1,300 mg PO Q8H PRN pain 07/07/23 03/13/24 History tablet,extended release (Arthritis Pain Relief (acetaminophen) ER) albuterol 90 mcg/actuation aerosol 90 mcg inhalation .every 4 hours 07/07/23 03/13/24 History inhaler PRN shortness of breath or wheezing alendronate 35 mg tablet 70 mg PO QWEEK 07/07/23 03/13/24 History amitriptyline 50 mg tablet 50 mg PO DAILY 07/07/23 03/13/24 History ascorbic acid (vitamin C) 500 mg 500 mg PO BID 07/07/23 03/13/24 History tablet,extended release (C Complex) aspirin 81 mg tablet,delayed 81 mg PO DAILY 07/07/23 03/13/24 History release (Adult Aspirin Regimen) atorvastatin 40 mg tablet 40 mg PO DAILY 07/07/23 03/13/24 History calcium carbonate (Calcium 600) 600 mg PO DAILY 07/07/23 03/13/24 History carvedilol 25 mg tablet 25 mg PO BID 07/07/23 03/13/24 History cholecalciferol (vitamin D3) 50 200 mcg PO DAILY 07/07/23 03/13/24 History mcg (2,000 unit) tablet (Vitamin D3) escitalopram oxalate 20 mg tablet 20 mg PO DAILY 07/07/23 03/13/24 History famotidine 20 mg tablet 20 mg PO DAILY 07/07/23 03/13/24 History fenofibrate 160 mg tablet 160 mg PO DAILY 07/07/23 03/13/24 History fexofenadine 180 mg tablet 180 mg PO DAILY 07/07/23 03/13/24 History hydralazine 100 mg tablet 100 mg PO TID 07/07/23 03/13/24 History rtzfbddltliak-iyihpqxiwefau-mgylwkrdepvuq 2 cap PO 07/07/23 History 65 mg-100 mg-325 mg capsule levothyroxine 150 mcg capsule 150 mcg PO DAILY 07/07/23 03/13/24 History lisinopril 20 1 tab PO DAILY 07/07/23 03/13/24 History mg-hydrochlorothiazide 12.5 mg tablet magnesium 250 mg tablet 250 mg PO DAILY 07/07/23 03/13/24 History nasdbydl-erc-ykijc acid 0.4 1 tab PO DAILY 07/07/23 03/13/24 History mg-lycopene 300 mcg-lutein 250 mcg tablet (Centrum Silver) omeprazole 40 mg capsule,delayed 40 mg PO DAILY 07/07/23 03/13/24 History release oxybutynin chloride 10 mg 10 mg PO DAILY 07/07/23 03/13/24 History tablet,extended release 24 hr tizanidine 4 mg tablet 4 mg PO BID PRN muscle spasticity 07/07/23 03/13/24 History buprenorphine 7.5 mcg/hour weekly 1 patch transdermal QWEEK #4 ea 07/19/23 03/13/24 Rx transdermal patch (Butrans) buprenorphine 7.5 mcg/hour weekly 1 patch transdermal Q7D #4 ea 03/06/24 03/13/24 Rx transdermal patch (Butrans) buprenorphine 7.5 mcg/hour weekly 1 patch transdermal QWEEK #4 ea 04/05/24 Rx transdermal patch (Butrans) Allergies Allergy/AdvReac Type Severity Reaction Status Date / Time adhesive tape Allergy Verified 02/07/24 10:34 Influenza Virus Vaccines Allergy Verified 02/07/24 10:34 lincomycin [From Lincocin] Allergy Verified 02/07/24 10:34 Penicillins Allergy Verified 02/07/24 10:34 Exam Constitutional Documenting provider has reviewed patient's vital signs: yes Common normals: no apparent distress, oriented x3, healthy appearing, alert and well nourished General appearance: cooperative HENMT Common normals: normocephalic, hearing grossly normal bilaterally and moist oral mucous membranes Head and scalp: normocephalic Eye Common normals: PERRL Pupil: PERRL Neck & C-Spine Common normals: full ROM General: normal visual inspection Cervical spine: cervical ROM abnormal, pain with cervical ROM, paracervical muscle tenderness and paracervical muscle spasm Other: negative spurlings positive facet loading right c2-3 c3-4 pain with rotation and flexion strength 5/5 in BUE increased sensitivity and spasms to below noted areas and across right suprascapular area Neck images: 2 1. 2. Chest Common normals: inspection of chest normal Respiratory Common normals: normal respiratory effort, no retractions and no use of accessory muscles Back & Pelvis Lumbar spine/lower back: ROM limited, pain with ROM and straight leg raise negative bilaterally Sacroiliac joints: SI joint(s) abnormal Other: pain over right PSIS, positive eri/fadir thigh thrust gaenslens reports right hip pain with pain radiating into groin, negative internal and exteneral log roll Extremity Common normals: normal to inspection and full ROM Neuro Common normals: oriented x3, CN's II-XII intact bilaterally, moves all extremities, no focal motor deficits, no sensory deficits noted and deep tendon reflexes 2+ bilaterally Sensorium/orientation: alert Gait (neuro): antalgic and assistive device used cane Motor exam: strength 5/5 throughout and no movement abnormalities noted Psych Common normals: mental status grossly normal, thought process normal, cooperative, affect normal, speech normal and activity/motor behavior normal Speech: normal speech Thought process: normal thought process Results Additional Findings Additional findings: If on a controlled substance or opioids, I have checked an [place] report on this patient and there are no aberrancies noted in the prescribing history.??If on a controlled substance or opioid a drug screen was completed and reviewed within the last year, and if there has not been a drug screen completed we ordered one today to monitor higher risk, state monitored pain medication use. As part of providing excellent, safe, comprehensive care, the following was completed at our patient's visit: 1. A medication reconciliation and review to ensure accurate knowledge of current/active medications, including asking our patients to inform us about any qdsi-kno-ytfwekm medications or herbal remedies/nutritional supplements/alternative remedies. 2. A review to specifically ensure our patients have had annual screening for screening for depression, screening for tobacco use, and screening for unhealthy alcohol use. For concerning screenings had a discussion with the patient, provided patient education, and recommended follow-up with primary care provider when appropriate. If patient noted with a risk of falling, they received education on strength, gait, and balance training to prevent future risk of falling. Assessment and Plan Assessment and Plan (1) Cervical neuritis: (2) Cervical spondylosis: (3) Chronic prescription opiate use: Assessment and Plan: I feel these medications are improving the patient's quality of life and allow them to tolerate activities of daily living as well as participate in recreational activity.? The patient does not report intolerable side effects. The patient is NOT opioid naive and non-pharmacologic and non-opioid treatment has failed to significantly relieve the patient's pain and improve functionality. The patient has a diagnosis that is related to a somatic or visceral pain etiology. ? ?? I reviewed with the patient the potential risks and side effects with the use of? opioid medications including but not limited to respiratory depression,? sedation, and even . I verified the patient has access to naloxone should? these effects occur. I advised the patient to avoid the use of any other? sedation substances including alcohol, THC, and benzodiazepines while? taking opioid medications due to the risk of compounding side effects and? detrimental outcomes. I reviewed the SECONDARY HISTORY TEACHER, pain treatment agreement, urine? drug screen, and opioid start talking forms. The patient was advised to let? their family know they had Naloxone in case they would need to administer? the medication.? ?? A drug screen was completed within the last year, and no aberrancies were noted regarding their use of controlled substances. The patient understands they are subject to the terms and conditions of the pain contract that they have signed. ? ?? I have checked an [place] report on this patient today and there are no aberrancies noted in the prescribing history.? (4) Degenerative cervical disc: (5) Muscle spasm: (6) Osteoarthritis of right hip: (7) Lumbar postlaminectomy syndrome: Plan medrol dose pack for post RFA neuritis continue current medications, finds functional improvement and decrease in overall pain with butrans 7.5mcg patch q7 days records obtained and reviewed from [facility], and [facility], f/u as planned f/u 2 weeks to evaluate pain
== END 2024-04-05 11:08 | disposition home or self-care (01) ==
PROVIDERS: PCP Family Medicine; Visit Provider Nurse Practitioner
DX: M79.2 Neuralgia and neuritis, unspecified (principal); M47.812 Spondylosis without myelopathy or radiculopathy, cervical region; Z79.891 Long term (current) use of opiate analgesic; M50.30 Other cervical disc degeneration, unspecified cervical region; M62.838 Other muscle spasm; M16.11 Unilateral primary osteoarthritis, right hip; M96.1 Postlaminectomy syndrome, not elsewhere classified
CPT/HCPCS: G0463

== ENCOUNTER 2024-04-19 10:55 | Outpatient (OUT) | payer MEDICARE, SELFPAY ==
--- NOTE | 2024-04-19 10:59 | P.CN_ITS ---
Consult Note: HPI Data of Consult Patient: known to practice within the last 3 years Requesting Physician: Nisa Galarza NP Primary Care Provider: TRUE DAVIS Consult Narrative Reason for consult: f/u Narrative: Angela Ruth a pleasant 78 year old female presents for evaluation and management of chronic neck pain. Patient reports pain today 5/10 ache in right side of neck, pain increases to 8/10 with activity, twisting, bending, lifting, pain improved with lying down. Patient denies numbness tingling and weakness. Patient finds mild to moderate benefit from current medication regimen, without side effects, but continues to have moderate to severe back and body pain impacting ADLs. MAGNO today 38%. Patient recently underwent right C2/3 C3/4 facet RFA with mild improvement ongoing. Medrol dose pack prescribed last visit for post RFA neuritis has improved symptoms of skin irritation and radiculopathy. Patient continues to have pain to right lower neck/upper back. cc:: CC: Nisa Galarza NP Review of Systems 2 ROS0 Status of ROS 10 or more systems reviewed and unremark able except as noted in history and below Musculoskeletal Reports: back pain and neck pain PFSH PFSH Medical History TMJ (dislocation of temporomandibular joint) ?S03.00XA - Dislocation of jaw, unspecified side, initial encounter (ICD-10) Neck pain ?M54.2 - Cervicalgia (ICD-10) Back pain ?M54.9 - Dorsalgia, unspecified (ICD-10) Osteoarthritis ?M19.90 - Unspecified osteoarthritis, unspecified site (ICD-10) H/O psychiatric care ?Z92.89 - Personal history of other medical treatment (ICD-10) Heartburn ?R12 - Heartburn (ICD-10) Acid reflux ?K21.9 - Gastro-esophageal reflux disease without esophagitis (ICD-10) Hypothyroid ?E03.9 - Hypothyroidism, unspecified (ICD-10) Kidney stones ?N20.0 - Calculus of kidney (ICD-10) Asthma ?J45.909 - Unspecified asthma, uncomplicated (ICD-10) High cholesterol ?E78.00 - Pure hypercholesterolemia, unspecified (ICD-10) Hypertension ?I10 - Essential (primary) hypertension (ICD-10) Surgical History H/O shoulder surgery ?Z98.890 - Other specified postprocedural states (ICD-10) H/O excision of hemangioma ?Z98.890 - Other specified postprocedural states (ICD-10) ?Z86.018 - Personal history of other benign neoplasm (ICD-10) H/O basal cell carcinoma excision ?Z98.890 - Other specified postprocedural states (ICD-10) ?Z85.828 - Personal history of other malignant neoplasm of skin (ICD-10) H/O lumbosacral spine surgery ?Z98.890 - Other specified postprocedural states (ICD-10) H/O foot surgery ?Z98.890 - Other specified postprocedural states (ICD-10) H/O hand surgery ?Z98.890 - Other specified postprocedural states (ICD-10) H/O wrist surgery ?Z98.890 - Other specified postprocedural states (ICD-10) History of cholecystectomy ?Z90.49 - Acquired absence of other specified parts of digestive tract (ICD- 10) H/O breast biopsy ?Z98.890 - Other specified postprocedural states (ICD-10) History of appendectomy ?Z90.49 - Acquired absence of other specified parts of digestive tract (ICD- 10) History of tonsillectomy and adenoidectomy ?Z90.89 - Acquired absence of other organs (ICD-10) Meds Home Medications and Allergies Home Medications ?Medication ?Instructions ?Recorded ?Confirmed ?Type acetaminophen 650 mg 1,300 mg PO Q8H PRN pain 07/07/23 03/13/24 History tablet,extended release (Arthritis Pain Relief (acetaminophen) ER) albuterol 90 mcg/actuation aerosol 90 mcg inhalation .every 4 hours 07/07/23 03/13/24 History inhaler PRN shortness of breath or wheezing alendronate 35 mg tablet 70 mg PO QWEEK 07/07/23 03/13/24 History amitriptyline 50 mg tablet 50 mg PO DAILY 07/07/23 03/13/24 History ascorbic acid (vitamin C) 500 mg 500 mg PO BID 07/07/23 03/13/24 History tablet,extended release (C Complex) aspirin 81 mg tablet,delayed 81 mg PO DAILY 07/07/23 03/13/24 History release (Adult Aspirin Regimen) atorvastatin 40 mg tablet 40 mg PO DAILY 07/07/23 03/13/24 History calcium carbonate (Calcium 600) 600 mg PO DAILY 07/07/23 03/13/24 History carvedilol 25 mg tablet 25 mg PO BID 07/07/23 03/13/24 History cholecalciferol (vitamin D3) 50 200 mcg PO DAILY 07/07/23 03/13/24 History mcg (2,000 unit) tablet (Vitamin D3) escitalopram oxalate 20 mg tablet 20 mg PO DAILY 07/07/23 03/13/24 History famotidine 20 mg tablet 20 mg PO DAILY 07/07/23 03/13/24 History fenofibrate 160 mg tablet 160 mg PO DAILY 07/07/23 03/13/24 History fexofenadine 180 mg tablet 180 mg PO DAILY 07/07/23 03/13/24 History hydralazine 100 mg tablet 100 mg PO TID 07/07/23 03/13/24 History wvchzvznmruvv-fnoptwihsqwko-qpqsxtlqzhban 2 cap PO 07/07/23 History 65 mg-100 mg-325 mg capsule levothyroxine 150 mcg capsule 150 mcg PO DAILY 07/07/23 03/13/24 History lisinopril 20 1 tab PO DAILY 07/07/23 03/13/24 History mg-hydrochlorothiazide 12.5 mg tablet magnesium 250 mg tablet 250 mg PO DAILY 07/07/23 03/13/24 History vgdxmbqb-anr-igdby acid 0.4 1 tab PO DAILY 07/07/23 03/13/24 History mg-lycopene 300 mcg-lutein 250 mcg tablet (Centrum Silver) omeprazole 40 mg capsule,delayed 40 mg PO DAILY 07/07/23 03/13/24 History release oxybutynin chloride 10 mg 10 mg PO DAILY 07/07/23 03/13/24 History tablet,extended release 24 hr tizanidine 4 mg tablet 4 mg PO BID PRN muscle spasticity 07/07/23 03/13/24 History buprenorphine 7.5 mcg/hour weekly 1 patch transdermal QWEEK #4 ea 07/19/23 03/13/24 Rx transdermal patch (Butrans) buprenorphine 7.5 mcg/hour weekly 1 patch transdermal Q7D #4 ea 03/06/24 03/13/24 Rx transdermal patch (Butrans) buprenorphine 7.5 mcg/hour weekly 1 patch transdermal QWEEK #4 ea 04/05/24 Rx transdermal patch (Butrans) Allergies Allergy/AdvReac Type Severity Reaction Status Date / Time adhesive tape Allergy Verified 02/07/24 10:34 Influenza Virus Vaccines Allergy Verified 02/07/24 10:34 lincomycin [From Lincocin] Allergy Verified 02/07/24 10:34 Penicillins Allergy Verified 02/07/24 10:34 Exam Constitutional Documenting provider has reviewed patient's vital signs: yes Common normals: no apparent distress, oriented x3, healthy appearing, alert and well nourished General appearance: cooperative HENMT Common normals: normocephalic, hearing grossly normal bilaterally and moist oral mucous membranes Head and scalp: normocephalic Eye Common normals: PERRL Pupil: PERRL Neck & C-Spine Common normals: full ROM General: normal visual inspection Cervical spine: cervical ROM abnormal, pain with cervical ROM, paracervical muscle tenderness and paracervical muscle spasm Other: negative spurlings negative facet loading right c2-3 c3-4 pain with rotation and flexion strength 5/5 in BUE increased sensitivity and spasms to below noted areas and across right suprascapular area Neck images: 2 1. 2. Chest Common normals: inspection of chest normal Respiratory Common normals: normal respiratory effort, no retractions and no use of accessory muscles Back & Pelvis Lumbar spine/lower back: ROM limited, pain with ROM and straight leg raise negative bilaterally Sacroiliac joints: SI joint(s) abnormal Other: pain over right PSIS, positive eri/fadir thigh thrust gaenslens reports right hip pain with pain radiating into groin, negative internal and exteneral log roll Extremity Common normals: normal to inspection and full ROM Neuro Common normals: oriented x3, CN's II-XII intact bilaterally, moves all extremities, no focal motor deficits, no sensory deficits noted and deep tendon reflexes 2+ bilaterally Sensorium/orientation: alert Gait (neuro): antalgic and assistive device used cane Motor exam: strength 5/5 throughout and no movement abnormalities noted Psych Common normals: mental status grossly normal, thought process normal, cooperative, affect normal, speech normal and activity/motor behavior normal Speech: normal speech Thought process: normal thought process Assessment and Plan Assessment and Plan (1) Cervical neuritis: Assessment and Plan: resolved (2) Cervical spondylosis: (3) Chronic prescription opiate use: Assessment and Plan: I feel these medications are improving the patient's quality of life and allow them to tolerate activities of daily living as well as participate in recreational activity.? The patient does not report intolerable side effects. The patient is NOT opioid naive and non-pharmacologic and non-opioid treatment has failed to significantly relieve the patient's pain and improve functionality. The patient has a diagnosis that is related to a somatic or visceral pain etiology. ? ?? I reviewed with the patient the potential risks and side effects with the use of? opioid medications including but not limited to respiratory depression,? sedation, and even . I verified the patient has access to naloxone should? these effects occur. I advised the patient to avoid the use of any other? sedation substances including alcohol, THC, and benzodiazepines while? taking opioid medications due to the risk of compounding side effects and? detrimental outcomes. I reviewed the RECORDING CLERK, pain treatment agreement, urine? drug screen, and opioid start talking forms. The patient was advised to let? their family know they had Naloxone in case they would need to administer? the medication.? ?? A drug screen was completed within the last year, and no aberrancies were noted regarding their use of controlled substances. The patient understands they are subject to the terms and conditions of the pain contract that they have signed. ? ?? I have checked an [place] report on this patient today and there are no aberrancies noted in the prescribing history.? (4) Degenerative cervical disc: (5) Muscle spasm: (6) Osteoarthritis of right hip: (7) Lumbar postlaminectomy syndrome: (8) Myofascial pain: Plan stop tizanidine, start methocarbamol 500-1000mg BID PRN myofascial pain spasms. has failed flexeril and baclofen in the past per patient f/u with Dr Hansen next week for right paracervical and suprascapular TPI in office continue butrans 7.5mcg patch q 7 days, finds functional improvement and decrease in overall pain with butrans 7.5mcg patch q7 days
== END 2024-04-19 10:56 | disposition home or self-care (01) ==
LOC: PM 10:56
PROVIDERS: PCP Family Medicine; Visit Provider Nurse Practitioner
DX: G58.8 Other specified mononeuropathies (principal); M47.812 Spondylosis without myelopathy or radiculopathy, cervical region; Z79.891 Long term (current) use of opiate analgesic; M50.30 Other cervical disc degeneration, unspecified cervical region; M62.838 Other muscle spasm; M16.11 Unilateral primary osteoarthritis, right hip; M96.1 Postlaminectomy syndrome, not elsewhere classified
CPT/HCPCS: G0463

== ENCOUNTER 2024-05-01 12:55 | Outpatient (OUT) | payer MEDICARE, SELFPAY ==
--- OUTSIDE RECORDS SUMMARY | 2024-05-01 13:17 | XMS_ITS | CCD ---
Author Organization [facility] Care Team Providers Care Bench Worker Apprentice Name Role Phone LENNY PEDRAZA Unavailable Unavailable AUDREY HORN Unavailable Unavailable AUDREY HORN Unavailable Unavailable LENNY PEDRAZA Unavailable Unavailable NASH, BIA Mccormick Primary Care Unavailable NASH, BIA Mccormick Primary Care Unavailable LALIT LEACH Attending Unavailable NASH, BIA F Referring Unavailable NASH, BIA Mccormick Primary Care Unavailable Nash GARCIA, [facility] Primary Care Provider Jacob Viveros Unavailable Unavailable Nash GARCIA, [facility] Primary Care Provider [facility] Primary Care Unavailable JUAN TAMEZ Attending Unavailable JUAN TAMEZ Attending Unavailable JUAN TAMEZ Referring Unavailable [facility] Primary Care Unavailable JOHN JOHNSON Referring Unavailable NASHBIA SANCHEZ Primary Care Unavailable YOANNA DORSEY Referring Unavailable [facility]available Jade GARCIA, Andrius Arredondo Attending Unavailable Gieditis , Andrius Maria Elena Attending Unavailable Giedraitis , Andrius Vradha Attending Unavailable Giedraitis , Andrius Vradha Attending Unavailable Giedbelkis GARCIA, Andrius Vytsb Attending Unavailable Giedbelkis GARCIA, Andrius Vytsb Attending Unavailable YOANNA DORSEY Attending Unavailable NASH, BIA F Referring Unavailable NASH, BIA F Primary Care Unavailable NASH, BIA F Referring Unavailable NASH, BIA Mccormick Primary Care Unavailable YOANNA DORSEY Attending Unavailable NASH, BIA F Referring Unavailable NASH, BIA Mccormick Primary Care Unavailable ILEANA CORTES Attending Unavailable YOANNA DORSEY Referring Unavailable NASH, BIA Anny Primary Care Unavailable (Hist), No Pcp Primary Care Provider UnavailIleana Paris MD Unavailable NASH, BIA F Attending Unavailable NASH, BIA F Attending Unavailable RUSHER, SANTO Castillo Attending Unavailable WILVER, ELMER Guillermo Attending Unavailable NSAH, BIA F Referring Unavailable SNYDER, RIA Attending Unavailable NASH, BIA F Referring Unavailable SNYDER, RIA Attending Unavailable NASH, BIA F Referring Unavailable SNYDER, RIA Attending Unavailable NASH, BIA F Referring Unavailable SNYDER, RIA Attending Unavailable NASH, BIA F Referring Unavailable SNYDER, RIA Attending Unavailable NASH, BIA F Referring Unavailable SNDYER, RIA Attending Unavailable NASH, BIA F Referring Unavailable SNYDER, RIA Attending Unavailable NASH, BIA F Referring Unavailable SNYDER, RIA Attending Unavailable NASH, BIA F Referring Unavailable SNYDER, RIA Attending Unavailable NASH, BIA F Referring Unavailable NASH, BIA F Attending Unavailable NASH, BIA F Attending Unavailable WILVER, ELMER Guillermo Attending Unavailable NASH, BIA F Referring Unavailable SNYDER, RIA Attending Unavailable NASH, BIA F Referring Unavailable WILVER, ELMER Guillermo Attending Unavailable NASH, BIA F Referring Unavailable NASH, BIA F Referring Unavailable NASH, BIA F Referring Unavailable NASH, BIA F Referring Unavailable NASH, BIA F Attending Unavailable HOOVER, MANDI F Attending Unavailable Allergies Allergy Classification Reported Allergen(s) Allergy Type Date of Onset Reaction(s) Facility (11 sources) Adhesive agent; Translations: [ADHESIVE] Propensity to adverse reactions to drug (disorder) 11-04-20 16 Other: See Comments [facility] (17 sources) Aspartame; Translations: [ASPARTAME] Drug Allergy 02-13-20 17 Other (See Comments), Unknown, Other: See Comments [facility] (8 sources) chicken allergenic extract; Translations: [POULTRY] Drug Allergy 03-02-20 23 [facility] (17 sources) Clavulanate; Translations: [CLAVULANIC ACID] Drug Allergy 02-13-20 17 Rash [facility] (8 sources) egg shell membrane; Translations: [EGGSHELL MEMBRANE] Propensity to adverse reactions to food (disorder) 11-04-20 16 [facility] (14 sources) Indomethacin; Translations: [INDOMETHACIN] Drug Allergy 05-02-20 21 Hypotension, Unknown [facility] (17 sources) Lincomycin; Translations: [LINCOMYCIN] Drug Allergy 08-14-20 11 Anaphylaxis, Rash [facility] (11 sources) Lincosamides (Antibiotic); Translations: [LINCOSAMIDES] Propensity to adverse reactions to drug (disorder) 02-13-20 17 Anaphylaxis [facility] (11 sources) oxaprozin; Translations: [OXAPROZIN] Drug Allergy 11-04-20 16 Rash [facility] (17 sources) Penicillins; Translations: [PENICILLINS] Propensity to adverse reactions to drug (disorder) 11-04-20 16 Rash [facility] (14 sources) Sulfamethoxazole / Trimethoprim; Translations: [SULFAMETHOXAZOLE-T RIMETHOPRIM] Drug Allergy 10-22-20 23 Hives [facility] (8 sources) Sulfonamides (Antibiotic); Translations: [SULFA (SULFONAMIDE ANTIBIOTICS)] Propensity to adverse reactions to drug (disorder) 11-11-20 22 Hives [facility] (11 sources) INFLUENZA VIRUS VACCINES; Translations: [INFLUENZA VIRUS VACCINES] Propensity to adverse reactions to drug (disorder) 02-13-20 17 Swelling [facility] (14 sources) OTHER; Translations: [OTHER] Propensity to adverse reactions (disorder) 02-13-20 17 Other (See Comments), Swelling [facility] (17 sources) AMOXICILLIN-POT CLAVULANATE; Translations: [AMOXICILLIN-POT CLAVULANATE] Propensity to adverse reactions to drug (disorder) 08-14-20 11 Rash [facility] (17 sources) CLEMIZOLE; Translations: [CLEMIZOLE] Propensity to adverse reactions to drug (disorder) 02-13-20 17 Rash [facility] (6 sources) Influenza Vaccines Drug Allergy 06-04-20 23 Rash [facility] (6 sources) Lincomycin Drug Allergy 12-01-19 22 Unknown [facility] (6 sources) Sulfonamides (Antibiotic) Drug Intolerance 11-11-20 22 Hives [facility] (6 sources) Eggs Or Egg-Derived Products Drug Allergy 08-14-20 11 Swelling, Unknown [facility] (6 sources) Poultry Meal Propensity to adverse reactions 03-02-20 23 [facility] (6 sources) Wound Dressing Adhesive Drug Allergy 06-04-20 23 Rash [facility] (3 sources) egg white (chicken) allergenic extract; Translations: [EGG WHITE] Drug Allergy 08-14-20 11 Swelling [facility] Medications Current Medications Medication Drug Class(es) Dates Sig (Normalized) Sig (Original) acetaminophen 500 mg oral tablet (7 sources) take 500-1000 mg by mouth every eight hours as needed acetaminophen (TYLENOL) 500 mg tablet Take 500-1,000 mg by mouth three times daily as needed. 0 Active take 2 tablets by mo [facility] every six hours as needed for pain acetaminophen (TYLENOL EXTRA STRENGTH) 5 00 mg tablet Take 2 tablets (1,000 mg total) by mouth every 6 (six) hours as needed for pain. 0 Active acetaminophen 250 mg / aspirin 250 mg / caffeine 65 mg oral tablet (5 sources) Platelet Aggregation Inhibitor, Nonsteroidal Anti-inflammatory Drug, Central Nervous System Stimulant, Methylxanthine take 1 tablet by mouth every six hours as needed for headache mtfuczj-dvzmlcwevzhyw-mrzwrusr (EXCEDRIN MIGRAINE) 250-250-65 mg per tablet Take 1 tablet by mouth every 6 (six) hours as needed for headaches. 0 Active acetaminophen 325 mg / butalbital 50 mg / caffeine 40 mg oral tablet (11 sources) Barbiturate, Central Nervous System Stimulant, Methylxanthine St ar t: 23 take 1 tablet by mouth every four hours as needed for headache hokehpcgsh-hwbiloifjzszw-vlqa (ESGIC) 50-325-40 mg per tablet Take 1 tablet by mouth every 4 (four) hours as needed for headaches. No more than 2 tablets daily, and no more than 2 days a week. 20 tablet 2 04/23/2023 Active acetaminophen 325 mg / dichloralphenazone 100 mg / isometheptene 65 mg oral capsule (2 sources) take 1 capsule by mouth every six hours as needed acetaminophen-dichloralphenazone -isometheptene (MIDRIN) 65-100-325 mg per capsule 1 capsule four times daily as needed. 0 Active [id number] actuat albuterol 0.09 mg/actuat metered dose inhaler (13 sources) beta2-Adrenergic Agonist ar t: 23 take 2 puff(s) by inhalation every four hours albuterol HFA 90 mcg/act inhaler Indications: Mild intermittent asthma without complication (CMS/HCC) Inhale 2 puffs every 4 (four) hours. 18 g 11 06/04/2023 Active Start: 09-30-2017 PROAIR HFA 90 mcg/actuation inhaler as needed. 0 09/30/2017 Active take 2 puff(s) by in halation every four hours as needed for wheezing albuterol (PROVENTIL HFA;VENTOLIN HFA) 90 mcg/actuation inhaler Inhale 2 puffs every 4 (four) hours as needed for wheezing or shortness of breath. PRO AIR 0 Active alendronic acid 70 mg oral tablet (15 sources) Bisphosphonate Start: 01-25-2024 take 1 tablet by mouth every week alendronate (FOSAMAX) 70 mg tablet Take 70 mg by mouth one time a week. 0 01/25/2024 Active Start: 01-25-2024 alendronate (F OSAMAX) 70 mg tablet Take 1 tablet (70 mg total) by mouth every 7 days. 0 01/25/2024 Active Start: 12-13-2023 End: 01-07-2024 take 1 tablet by mouth in the morning alendronate (FOSAMAX) 70 mg tablet Take 1 tablet (70 mg total) by mouth every 7 days. In a.m. with water on empty stomach, nothing else by mouth and remain upright for 30min. STOP old dose 90 tablet 3 12/13/2023 01/07/2024 Discontinued Start: 07-21-2023 End: 02-24-2024 alendronate (FOSAMAX) 35 mg tablet take 1 tablet by mouth every 7 days IN THE MORNING 30 MINUTES before FIRST FOOD, BEVERAGE, OR MEDICATION with 6 to 8 ounce(s) OF WATER 12 tablet 3 07/21/2023 02/24/2024 Discontinued (Dose adjustment) take 1 tablet by margo th once daily alendronate (Fosamax) 35 MG tablet 1 tablet 30 minutes before the first food, beverage or medicine of the day with plain water Orally weekly 0 Active amitriptyline hydrochloride 50 mg oral tablet (14 sources) Tricyclic Antidepressant Start: 11-17-2023 End: 11-16-2024 take 1 tablet by mouth once daily amitriptyline (ELAVIL) 50 mg tablet Indications: Migraine without aura and without status migrainosus, not intractable , Psychophysiological insomnia Take 1 tablet (50 mg total) by mouth nightly. 90 tablet 3 01/07/2024 Active take 1 tablet by margo th once daily at bedtime amitriptyline (ELAVIL) 100 mg tablet Ronaldo e 100 mg by mouth daily at bedtime. 0 Active ascorbic acid 500 mg oral tablet (11 sources) Vitamin C take 2 tablets by mo uth in the morning ascorbic acid (VITAMIN C) 500 mg tablet Take 2 tablets (1,000 mg total) by mouth in the morning. 0 Active Ascorbic Acid (v itamin C) 1000 MG tablet 1 (one) time each day at the same time. 0 Active aspirin 81 mg delayed release oral tablet (11 sources) Platelet Aggregation Inhibitor, Nonsteroidal Anti-inflammatory Drug take 1 tablet by mouth in the morning aspirin 81 mg Take 1 tablet (81 mg total) by mouth in the morning. 0 Active atorvastatin 40 mg oral tablet (14 sources) HMG-CoA Reductase Inhibitor Start: 2016 End: 2023 take 1 tablet by mouth once daily atorvastatin (LIPITOR) 40 mg tablet Take 40 mg by mouth once daily. 0 10/27/2017 Active 168 hr buprenorphine 0.0075 mg/hr transdermal system (11 sources) Partial Opioid Agonist Start: 2022 apply 1 dose transdermal route every week buprenorphine (BUTRANS) 7.5 mcg/hour patch weekly Place 1 patch on the skin once a week. 0 07/20/2023 Active calcium carbonate 1500 mg / cholecalciferol 800 unt oral tablet (13 sources) Vitamin D take 1 tablet by mouth once daily calcium carbonate-vitamin D3 600 mg(1,500mg) -800 unit tab Take 1 tablet by mouth once daily. 0 Active take 1 tablet by mouth once halley y calcium carbonate-vitamin D3 600 mg(1,500mg) -800 units tablet Indications: prevention of vitamin D deficiency Take 600 mg by mouth nightly Indications: prevention of vitamin D deficiency. 0 Active carvedilol 25 mg oral tablet (13 sources) alpha-Adrenergic To, beta-Adrenergic To Start: 01-24-2018 take 1 tablet by mouth twice daily carvedilol (COREG) 25 mg tablet Take 25 mg by mouth twice daily. 1 01/24/2018 Active carvedilol (Core g) 25 MG tablet every 12 (twelve) hours. 0 Active cholecalciferol 0.025 mg ora l tablet (13 sources) Vitamin D cholecalciferol (VITAMIN D3) 1,000 unit tab tablet 1,000 Units once daily. 0 Active cholecalciferol (Vitamin D-3) 25 MCG (1000 UT) tablet 1,000 Units in the morning. Take before meals. 0 Active cyclobenzaprine hydrochloride 5 mg oral tablet (2 sources) Muscle Relaxant take 2 tablets by mouth every eight hours as needed cyclobenzaprine (FLEXERIL) 5 mg tablet Take 10 mg by mouth three times daily as needed. 0 Active diclofenac sodium 75 mg delayed release oral tablet (2 sources) Nonsteroidal Anti-inflammatory Drug take 1 tablet by mouth every twelve hours as needed diclofenac, EC, (VOLTAREN) 75 mg EC tablet Take 75 mg by mouth twice daily as needed. 0 Active escitalopram 20 mg oral tablet (13 sources) Serotonin Reuptake Inhibitor Start: End: take 1 tablet by mouth at mealtime escitalopram (Lexapro) 20 MG tablet Indications: Anxiety Take 1 tablet (20 mg) by mouth in the evening. Take with meals 100 tablet 3 12/15/2023 12/14/2024 Active esomeprazole 40 mg delayed release oral capsule (2 sources) Proton Pump Inhibitor esomeprazole (NEXIUM ) 40 mg capsule Take 40 mg by mouth. 0 Active ezetimibe 10 mg / simvastatin 40 mg oral tablet (2 sources) HMG-CoA Reductase Inhibitor, Dietary Cholesterol Absorption Inhibitor ezetimibe-simvastati n 10-40 mg (VYTORIN) 10-40 mg per tablet Take by mouth. 0 Active famotidine 20 mg oral tablet (12 sources) Histamine-2 Receptor Antagonist Start: take 1 tablet by mouth once daily famotidine (PEPCID) 20 mg tablet Take 1 tablet (20 mg total) by mouth nightly. 90 tablet 3 11/29/2023 Active fenofibrate 160 mg oral tablet (13 sources) Peroxisome Proliferator Receptor alpha Agonist Start: 023 End: take 1 tablet by mouth in the morning fenofibrate (Triglide) 160 MG tablet Indications: Hyperlipidemia, unspecified hyperlipidemia type (CMS/HCC) Take 1 tablet (160 mg) by mouth in the morning. 100 tablet 3 10/26/2023 10/25/2024 Active ferrous sulfate 325 mg oral tablet (4 sources) Start: ferrous sulfate 325 mg (65 mg iron) tablet Take 325 mg by mouth. 0 01/18/2024 Active fexofenadine hydrochloride 180 mg oral tablet (13 sources) Histamine-1 Receptor Antagonist take 1 tablet by mouth once daily fexofenadine (RALPH) 180 mg tablet Take 180 mg by mouth once daily. 0 Active hydrALAZINE hydrochloride 100 mg oral tablet (12 sources) Arteriolar Vasodilator Start: 024 hydrALAZINE (APRESOLINE) 100 mg tablet Indications: Essential hypertension Take one twice a day may take an additional 50mg daily if Systolic BP is greater than 170 60 tablet 11 02/11/2024 Active Start: 07-26-2023 End: 02-10-2024 take 1 tablet [...] mg / lisinopril 20 mg oral tablet (12 sources) Thiazide Diuretic, Angiotensin Converting Enzyme Inhibitor Start: 12-06-2023 take 1 tablet by mouth in the morning lisinopril-hydroCHLOROthiazide 20-12.5 MG tablet Indications: Essential hypertension (CMS/HCC) Take 1 tablet by mouth in the morning. 100 tablet 3 12/06/2023 Active Start: 06-01-2023 take 1 tablet by margo th once daily in the morning lisinopril-hydroCHLOROthiazide (ZESTORET IC) 20-12.5 mg per tablet Take 1 tablet by mouth every morning. 0 06/01/2023 Active Start: 06-01-2023 take 1 tablet by margo th once in the morning lisinopril-hydroCHLOROthiazide (ZESTORET IC) 20-12.5 mg per tablet Indications: Essential hypertension Take 1 tablet by mouth in the morning. 90 tablet 3 06/01/2023 Active hydroCHLOROthiazide 25 mg / losartan potassium 100 mg oral tablet (2 sources) Thiazide Diuretic, Angiotensin 2 Receptor To Start: 01-24-2018 take 1 tablet by mouth once daily losartan-hydrochlorothiazide (HYZAAR) 100-25 mg per tablet Take 1 tablet by mouth once daily. 1 01/24/2018 Active L.acidoph/B.animalis/ B.longum (FLORAJEN DIGESTION ORAL) (5 sources) take 1 tablet by mouth in the morning L.acidoph/B.animalis/B.longum (FLORAJEN DIGESTION ORAL) Take 1 tablet by mouth in the morning. 0 Active lactobacillus acidophilus 16 mg oral capsule (6 sources) Lactobacillus (F raven Women) capsule as directed Orally 0 Active levothyroxine sodium 0.15 mg oral tablet (13 sources) l-Thyroxine Start: 01-21-2018 levothyroxine (SYNTHROID) 15 0 mcg tablet 1 tablet once daily. 0 01/21/2018 Active Magnesium (11 sources) take 500 mg by mouth in the morning MAGNESIUM PO Take 500 mg by mouth in the morning. 0 Active take 2 tablets by mouth in the m orning magnesium 250 mg tablet Indications: for migraine prevention Take 2 tablets (500 mg total) by mouth in the morning. Indications: for migraine prevention. At supper time. 0 Active magnesium gluconate 500 mg oral tablet (2 sources) magnesium glucon ate (MAGONATE) 27 mg (500 mg) tab Take 500 mg by mouth once daily. 0 Active meclizine hydrochloride 25 mg oral tablet (8 sources) Antiemetic take 1 tablet by mouth every eight hours as needed meclizine (ANTIVERT) 25 mg tab Take 25 mg by mouth three times daily as needed. 0 Active metoclopramide 10 mg oral tablet (2 sources) Dopamine-2 Receptor Antagonist take 1 tablet by mouth every six hours as needed metoclopramide HCl (REGLAN) 10 mg tablet Take 10 mg by mouth every 6 hours as needed. 0 Active multivitamin tablet (2 sources) take 1 tablet by mouth once daily multivitamin tablet Take 1 tablet by mouth once daily. 0 Active multivitamin with minerals (Centrum) 9-200 mg-mcg tablet split tablet (6 sources) multivitamin wit h minerals (Centrum) 9-200 mg-mcg tablet split tablet multivitamin Multiple Vitamins 0 Active naproxen 250 mg oral tablet (1 source) Nonsteroidal Anti-inflammatory Drug naproxen (NAPROSYN) 250 mg tablet Take by mouth as directed. 0 Active omeprazole 40 mg delayed release oral capsule (13 sources) Proton Pump Inhibitor Start: 024 take 1 capsule by mouth in the morning omeprazole (PriLOSEC) 40 mg capsule Indications: Gastroesophageal reflux disease, unspecified whether esophagitis present Take 1 capsule (40 mg total) by mouth in the morning. 180 capsule 3 11/29/2023 Active Start: 12-02-2016 omeprazole (NC ILOSEC) 20 mg capsule 20 mg once daily. 0 12/02/2016 Active 24 hr oxybutynin chloride 10 mg extended release oral tablet (13 sources) Cholinergic Muscarinic Antagonist Start: 11-21-2020 End: 01-03-2024 take 1 tablet by mouth every twenty-four hours oxybutynin ER (DITROPAN XL) 10 mg 24 hr tablet Take 10 mg by mouth. 0 11/21/2020 Active Start: 11-21-2020 take 1 tablet by margo th once daily at breakfast oxybutynin XL (DITROPAN-XL) 10 mg 24 hr tablet Take 1 tablet (10 mg total) by mouth daily with breakfast. 0 11/21/2020 Active therapeutic multivitamin (THERA VITAMIN) tablet (1 source) therapeutic mult ivitamin (THERA VITAMIN) tablet Take 1 tablet by mouth. 0 Active therapeutic multivitamin (THERAGRAN) tablet (5 sources) take 1 tablet by mouth once daily at dinner therapeutic multivitamin (THERAGRAN) tablet Take 1 tablet by mouth daily with dinner. 0 Active tiZANidine 4 mg oral tablet (12 sources) Central alpha-2 Adrenergic Agonist Start: 01-07-20 24 tiZANidine (ZANAFLEX) 4 mg tablet Indications: Bilateral [...] 2 tablets by mouth nightly 0 Active topiramate 100 mg oral tablet (2 sources) Start: 12-21-2017 topiramate (TOPAMAX) 100 mg tablet 300 mg once daily. 100 mg in the A.M and 200 at bedtime 0 12/21/2017 Active ubrogepant 100 mg oral tablet (16 sources) Start: 01-07-2024 End: 02-24-2024 take 1 tablet by mouth once as needed UBRELVY 100 mg tablet Indications: Migraine without aura and without status migrainosus, not intractable Take 100 mg by mouth once as needed (migraine) for up to 1 dose. 16 tablet 12 01/07/2024 Active verapamil hydrochloride 120 mg extended release oral tablet (2 sources) Calcium Channel To Start: 12-27-2017 verapamil SR (CALAN SR, ISOPTIN SR) 120 mg CR tablet 1 tablet three times daily. 0 12/27/2017 Active vitamin b12 1 mg sublingual tablet (3 sources) Vitamin B12 Start: 01-18-2024 take 1 tablet under the tongue in the morning cyanocobalamin (VITAMIN B12) 1,000 mcg tablet, sublingual Place 1 tablet (1,000 mcg total) under the tongue in the morning. 30 tablet 11 01/18/2024 Active zafirlukast 20 mg oral tablet (13 sources) Leukotriene Receptor Antagonist Start: 01-07-2018 End: 12-14-2024 zafirlukast (ACCOLATE) 20 mg tablet 1 tablet twice daily. 0 01/07/2018 Active Completed/Discontinued Medications Medication Drug Class(es) Dates Sig (Normalized) Sig (Original) benzonatate 200 mg oral capsule (2 sources) [...] total) by mouth. 0 04/23/2023 01/07/2024 Discontinued pediatric mcjptvma-xsgp-pl n (flintstones complete) tablet,chewable (3 sources) Start: 01-18-2024 End: 02-24-2024 pediatric siugdzfn-vkuq-gjb (flintstones complete) tablet,chewable Chew 1 tablet and swallow in the morning. 90 tablet 3 01/18/2024 02/24/2024 Discontinued (Duplicate Listing) Start: 01-18-2024 pediatric mult zgwz-tsiu-rdi (flintstones complete) tablet,chewable Chew 1 tablet and swallow in the morning. 90 tablet 3 01/18/2024 Active Problems Active Problems Problem Classification Problem Date Documented Da te Episodic/Chronic Asthma (6 sources) Asthma; Translations: [Unspecified asthma, uncomplicated] Onset: 6 06-04-2023 Chronic Chronic kidney disease (6 sources) Chronic kidney disease stage 3B ; Translations: [Stage 3b chronic kidney disease (CKD)] Onset: 3 06-04-2023 Chronic Complications of surgical procedures or medical care (16 sources) Drug-induced hypotension; Translations: [Hypotension due to drugs] Onset: 1 05-23-2021 Episodic Conditions associated with dizziness or vertigo (1 source) Dizziness; Translations: [Dizziness and giddiness] 04-05-2024 Episodic Conduction disorders (6 sources) First degree atrioventricular block; Translations: [Atrioventricular block, first degree] Onset: 1 06-04-2023 Chronic Diabetes mellitus without complication (3 sources) Prediabetes; Translations: [Prediabetes] Onset: 4 01-07-2024 Episodic Disorders of lipid metabolism (18 sources) Hyperlipidemia; Translations: [Other hyperlipidemia] Onset: 5 10-26-2017 Chronic E Codes: Fall (1 source) Unspecified fall, initial encounter; Translations: [Unspecified fall, initial encounter] Onset: 4 Episodic E Codes: Fall (1 source) Fall Onset: 4 Esophageal disorders (12 sources) Gastro-esophageal reflux disease without esophagitis; Translations: [Gastroesophageal reflux disease without esophagitis] Onset: 1 09-15-2021 Chronic Essential hypertension (17 sources) Essential hypertension; Translations: [Essential (primary) hypertension] [...] Onset: 0 06-04-2023 Chronic Headache; including migraine (13 sources) Migraine without aura, not refractory ; Translations: [Migraine without aura, not intractable, without status migrainosus] Onset: 9 Resolved: 3 12-12-2018 Chronic Miscellaneous mental health disorders (13 sources) Psychophysiologic insomnia; Translations: [Psychophysiologic insomnia] Onset: 9 12-12-2018 Chronic Mood disorders (20 sources) Depressive disorder; Translations: [Other specified depressive episodes] Onset: 7 02-12-2017 Chronic Nausea and vomiting (5 sources) Postoperative nausea and vomiting; Translations: [Nausea with vomiting, unspecified] 06-24-2021 Episodic Osteoarthritis (6 sources) Osteoarthritis of right knee joint; Translations: [Unilateral primary osteoarthritis, right knee] Onset: 1 06-04-2023 Chronic Osteoporosis (13 sources) Senile osteoporosis; Translations: [Age-related osteoporosis without current pathological fracture] Onset: 0 Resolved: 3 06-04-2023 Chronic Other and ill-defined heart disease (5 sources) Diastolic dysfunction; Translations: [Other ill-defined heart diseases] Onset: 1 05-23-2021 Chronic Other and ill-defined heart disease (6 sources) Left ventricular hypertrophy; Translations: [Cardiomegaly] Onset: 1 05-23-2021 Chronic Other and unspecified benign neoplasm (2 sources) Benign neoplasm of meninges, unspecified; Translations: [Benign neoplasm of meninges, unspecified] Onset: 4 Chronic Other and unspecified benign neoplasm (1 source) Benign neoplasm of cranial nerves; Translations: [Benign neoplasm of cranial nerves] Onset: 4 Chronic Other and unspecified benign neoplasm (1 source) Intracranial meningioma; Translations: [Benign neoplasm of cerebral meninges] 04-05-2024 Chronic Other connective tissue disease (6 sources) [...] hearing loss, bilateral] Onset: 4 Chronic Other ear and sense organ disorders (1 source) Sensorineural hearing loss in right ear; Translations: [Unspecified sensorineural hearing loss] 04-05-2024 Chronic Other gastrointestinal disorders (11 sources) Chronic idiopathic constipation; Translations: [Chronic idiopathic constipation] Onset: 9 07-10-2019 Chronic Other hereditary and degenerative nervous system conditions (12 sources) Essential tremor; Translations: [Essential tremor] Onset: [...] Onset: 4 Episodic Other nervous system disorders (5 sources) Chronic pain syndrome; Translations: [Chronic pain syndrome] Onset: 8 2018 Chronic Other nervous system disorders (5 sources) Carpal tunnel syndrome; Translations: [Carpal tunnel syndrome, unspecified upper limb] Onset: 1 10-28-2021 Chronic Other nervous system disorders (1 source) Polyneuropathy; Translations: [Polyneuropathy, unspecified] 01-07-2024 Chronic Other nervous system disorders (2 sources) Polyneuropathy, unspecified; Translations: [Polyneuropathy, unspecified] Onset: 4 Chronic Other nervous system disorders (1 source) Mass lesion of brain; Translations: [Other specified disorders of brain] 03-28-2024 Chronic Other screening for suspected conditions (not mental disorders or infectious disease) (1 source) Abnormal findings on diagnostic imaging of other specified body structures; Translations: [Abnormal findings on diagnostic imaging of other specified body structures] Onset: 4 Chronic Other screening for suspected conditions (not mental disorders or infectious disease) (4 sources) Abnormal level of blood mineral; Translations: [Abnormal level of blood mineral] Onset: 4 01-07-2024 Episodic Residual codes; unclassified (1 source) Pain, unspecified; Translations: [Pain, unspecified] Onset: 4 Episodic Spondylosis; intervertebral disc disorders; other back problems (20 sources) Prolapsed lumbar intervertebral disc; Translations: [Other intervertebral disc displacement, lumbar region] Onset: 1 Resolved: 01-07-2017 Chronic Thyroid disorders (11 sources) Acquired hypothyroidism; Translations: [Hypothyroidism, unspecified] Onset: 9 03-02-2023 Chronic Unclassified (1 source) EMS Onset: 4 Past or Other Problems Problem Classification Problem Date Documented Da te Episodic/Chronic Acute and unspecified renal failure (5 sources) Acute injury of kidney; Translations: [Acute kidney failure, unspecified] Onset: 03-02-2023 03-02-2023 Episodic Acute cerebrovascular disease (5 sources) Hematoma of subdural space of neuraxis; Translations: [SDH (subdural hematoma)] Onset: 01-04-2018 Resolved: 07-01-2021 07-01-2021 Chronic Adjustment disorders (6 sources) Adjustment disorder with anxious mood; Translations: [Adjustment disorder with anxiety] Onset: 05-04-2023 Resolved: 10-24-2023 10-24-2023 Chronic Calculus of urinary tract (11 sources) Kidney stone; Translations: [Calculus of kidney] Onset: 03-02-2023 03-02-2023 Episodic Malaise and fatigue (8 sources) Asthenia; Translations: [Weakness] Onset: 11-04-2016 11-04-2016 Episodic Mood disorders (11 sources) Mood disorders Onset: 04-23-2023 Resolved: 01-07-2024 04-23-2023 Other circulatory disease (5 sources) Low blood pressure; Translations: [Hypotension, unspecified] Onset: 03-02-2023 03-02-2023 Episodic Other connective tissue disease (11 sources) Bilateral trochanteric bursitis; Translations: [Trochanteric bursitis, right hip] Onset: 11-03-2017 11-03-2017 Episodic Other connective tissue disease (5 sources) Impingement syndrome of right shoulder region; Translations: [Impingement syndrome of right shoulder] Onset: 08-14-2011 06-22-2018 Episodic Other connective tissue disease (6 sources) Muscle spasm of cervical muscle of neck; Translations: [Other muscle spasm] Onset: 05-05-2019 05-05-2019 Episodic Other connective tissue disease (5 sources) Nocturnal muscle spasm ; Translations: [Other [...] Onset: 05-05-2019 Episodic Other lower respiratory disease (5 sources) Dyspnea; Translations: [Shortness of breath] Onset: 11-06-2019 11-06-2019 Episodic Other nervous system disorders (6 sources) Impairment of balance; Translations: [Other abnormalities of gait and mobility] Onset: 06-12-2019 06-12-2019 Episodic Other nervous system disorders (2 sources) Other abnormalities of gait and mobility; Translations: [Other abnormalities of gait and mobility] Onset: 06-12-2019 Episodic Other non-traumatic joint disorders (10 sources) Hip pain; Translations: [Pain in right hip] Onset: 10-13-2017 11-03-2017 Episodic Other upper respiratory disease (5 sources) Chronic hoarseness; Translations: [Dysphonia] Onset: 07-24-2020 07-24-2020 Episodic Screening and history of mental health and substance abuse codes (11 sources) H/O: depression; Translations: [Personal history of other mental and behavioral disorders] Onset: 2018 2018 Episodic Spondylosis; intervertebral disc disorders; other back problems (20 sources) Spinal stenosis of lumbar region; Translations: [Spinal stenosis, lumbar region without neurogenic claudication] Onset: 08-14-2011 Resolved: 10-24-2023 12-22-2022 Episodic Results Test Name Value Interpretation Reference Range Facility [facility] 04-04-2024 OV Office Visit ([facility] ) -- ANGELA RUTH ([id number]) 1945 F Date Time Provider Department 04/04/24 10:30 AM MANDI HOOVER During your visit today, we recorded the following information about you: Temperature Pulse Respiration Blood pressure 97.7 degrees 80/minute 18/minute 105/65 Weight Height 69.6 kg 1.6 m Mandi Hoover MD 04/05/2024 5:50 PM Signed SECTION OF SKULL BASE SURGERY MINIMALLY INVASIVE CRANIAL BASE AND PITUITARY SURGERY PROGRAM [facility] [place] CC: Patient Care Team: Bia Cao as PCP ([facility]) Ileana Cortes MD as NI Referring Team (Neurosurgery) ASSESSMENT: In summary, Angela Ruth is a very pleasant 78 year old female with PMH HTN, HLD, asthma, BCC of face and hands (~20-30 years ago), hypothyroidism, previous spine surgeries now fused from L3-L5, s/p C2-3, C3-4 radiofrequency ablations presenting with 6 months of difficulty with balance and walking and right ear hearing difficulty for 6 months. Her lesion does not arise from any of the cranial nerves and instead seems to be arising from the right posterior petrous ridge. 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 The natural history and treatment options for meningiomas (including observation, radiotherapy, radiosurgery, and surgery) were reviewed in detail. In this case, the tumor is not touching the vestibular cochlear nerve complex and it is small, therefore I believe it to be incidental and unrelated to her symptoms. Given this, I recommend a conservative approach for this tumor. PLAN: - Follow-up in 6 months with a repeat MRI scan ([place]) and clinic visit with one of our skull base team advance practice providers ([place]). - follow up with representative government relations for hearing loss which is unrelated to this tumor - follow up with Dr. Cao to investigate other etiologies of imbalance. We contacted Dr. Cao via telephone with our recommendations. Anson Ennis MD PGY-3, Neurological Surgery I have reviewed the history AND physical obtained and documented by the resident who scribed on my behalf. I examined the patient and evaluated all available films and pertinent documents. This note accurately reflects work and decisions made by me. Mandi Hoover MD Medical Decision Making: Problems: Moderate: New problem with uncertain prognosis Data: Unique source(s) for external note(s) reviewed: 1 Unique test result(s) reviewed: 1 Independent interpretation of test from other physician/QHCP Risk: Low: Low risk from testing/treatment Medical Decision Making Level: 4 - Moderate The patient is referred by Dr. Cao for neurosurgical evaluation. Final recommendations will be communicated back to the requesting physician by way of the shared medical records, or letters to requesting physician via US Mail and were also communicated by telephone. Chief Complaint: Right CPA Tumor History of Present Illness: Patient is accompanied by her granddaughter (her fire truck driver) and great grand daughter). The patient is a very pleasant 78 year old female with PMH HTN, HLD, asthma, BCC of face and hands (~20-30 years ago), hypothyroidism, previous spine surgeries now fused from L3-L5, s/p C2-3, C3-4 radiofrequency ablations presenting with 6 months of difficulty with balance and walking and right ear hearing difficulty for 6 months. An MRI was performed 03/02/2024 with and without contrast and shows a 1.2 cm R SECOND CUTTER contrast-enhancing lesion concerning for either schwannoma or meningioma- no associated mass effect or edema. The patient takes ASA 81 mg daily for cardioprotection per her PCP. The patient has been using a cane for the last 5-6 years. The patient reports that ~6 weeks ago, she walked into her garage door and fell. The patient has not seen an representative government relations or a vestibular therapist. Past Medical History: No past medical history on file. Past Surgical History: No past surgical history on file. Family History: No family history on file. Social History: Social History Tobacco Use Smoking status: Never Smokeless tobacco: Never Substance Use Topics Alcohol use: No Medications: Current Outpatient Medications on File Prior to Visit Medication Sig acetaminophen (TYLENOL) 500 mg tablet Take 500-1,000 mg by mouth three times daily as needed. PROAIR HFA 90 mcg/actuation inhaler as needed. amitriptyline (ELAVIL) 100 mg tablet Take 100 mg by mouth daily at bedtime. atorvastatin (LIPITOR) 40 mg tablet Take 40 mg by mouth once daily. carvedilol (COREG) 25 mg tablet Take 25 mg by mouth twice daily. cholecalciferol (VITAMIN D3) 1,000 unit tab tablet 1,000 Units once (more content not included)... Normal [facility] 03-24-2024 [facility] Telephone (NIQ) -- ANGELA RUTH ([id number]) 1945 F Date Time Provider Department 03/24/24 NEUROLOGY PROVIDER NI During your visit today, we recorded the following information about you: Shelli Fletcher 03/24/2024 5:01 PM Signed Referral source: Ileana Cortes MD ([facility]) Reason for visit: consideration of gamma knife for 1.2 cm enhancing lesion at right cerebelloponitine angle with leading differential including vestibular schwannoma and meningioma External records: Sent with referral and pulled from [facility] Triage: Required, forwarded to [facility] by telephone encounter sent to [facility] Scheduling Triage. Financial clearance: Not required to schedule Vanesa Morgan APRN.[facility] 03/28/2024 10:00 AM Signed Time Frame: First available Provider: Kiko Landrum Soni Referring: Ileana Cortes MD Images to be requested from [facility] Dx: Right CPA mass Patient: Angela Ruth Address: Angela Ruth [id number] [place] [address] Per Triage: HISTORY OF PRESENT ILLNESS Angela Ruth is a 78 y.o. female. She has had loss of hearing in her right ear. Also had some headaches. An MRI was performed 03/02/2024 with and without contrast and shows a 1.5 cm lesion in the CPA angle on the right side. She has been having increasing balance issues. No recent falls. No issues on the left side. Patient expectations: Second opinion Tumor Specifics: Location: brain Previous Evaluations: MRI w/wo contrast BRAIN 03/02/24 Impression 1.2 cm enhancing mass at the right cerebellopontine angle with leading differential including vestibular schwannoma and meningioma. ELECTRONICALLY SIGNED BY: Ryan Selby MD Narrative EXAMINATION: MR BRAIN W AND WO CONTRAST (ROUTINE) HISTORY: Abnormal CT. TECHNIQUE: Routine brain MRI protocol without and with contrast including diffusion images. CONTRAST: 14 mL gadolinium (Prohance) injection COMPARISON: None available. RESULT: Acute Change: There is no evidence of restricted diffusion to suggest an acute infarct. Hemorrhage: No evidence of prior parenchymal hemorrhage. Mass Lesion/ Mass Effect: 1.2 cm enhancing mass at the right cerebellopontine angle. No extra-axial fluid collection or abnormal enhancement elsewhere. No significant mass effect. Chronic Change: Scattered patchy areas of increased T2 and FLAIR signal are present in the supratentorial white matter which is a nonspecific finding but likely represents mild chronic microvascular ischemia. Parenchyma: There is mild generalized parenchymal volume loss. Ventricles: Normal caliber and morphology. Skull Base: Hypothalamic and pituitary region are grossly normal. Craniocervical junction is normal. No significant marrow replacement process. Vasculature: Major intracranial arterial structures, and dural venous sinuses show typical flow void, suggesting patency. Other: Mild because of thickening of the pineal sinuses especially the ethmoid air cells and right maxillary sinus. Mastoid air cells are clear. The orbits are unremarkable. The extracranial soft tissues are unremarkable. Vanesa Morgan, MASOOD.BEHAVIOR THERAPIST March 28, 2024 Etelvina Trujillo 03/28/2024 10:12 AM Signed Called patient to schedule an appointment. No ans/left message to call the office back. Appointment scheduled: 04/04/2024 10:30 AM (Arrive by 10:15 AM) Mandi Hoover MD [facility] RAMAN Alonso Janette 04/06/2024 10:40 AM Addendum Imaging requested from [facility]. DOS requested: MRI 03/02/2024 CT Scan 02/11 2024 AND 03/09/2023, 02/11/2024. All images viewable in imedo As of Date: 03/24/2024 Noted Allergy Reaction LINCOSAMIDES 02/12/2017 10 - Anaphylaxis INFLUENZA VIRUS VACCINES 02/12/2017 7 - Swelling ADHESIVE 11/04/2016 14 - Other: See Comments Comments: States causes blisters/even paper tape AMOXICILLIN-POT CLAVULANATE 08/14/2011 2 - Rash EGG WHITE 08/14/2011 7 - Swelling Comments: Says about 1964? and only one arm affected. No rash, hives, or trouble breathing ASPARTAME 02/12/2017 14 - Other: See Comments Comments: migraines CLAVULANIC ACID 02/12/2017 2 - Rash CLEMIZOLE 02/12/2017 2 - Rash LINCOMYCIN 11/04/2016 2 - Rash OXAPROZIN 11/04/2016 2 - Rash PENICILLINS 11/04/2016 2 - Rash Date Reviewed: 01/27/2018 Reviewed by: Valentine Madrid (Jerald), JERALD - Fully Assessed Reason for Visit: Received Outside Medical Records [3576] Cmt: External referral to [facility] [place] triage [Other] Nurse Triage Call [185] Appointment [186] Primary Visit Diagnosis:Brain mass [G93.89] [G93.89] Prescriptions as of 04/06/2024 - hydrALAZINE (APRESOLINE) 100 mg tablet take 1 tablet by mouth twice a day then MAY TAKE ADDITIONAL (50 M... (REFER (more content not included)... Normal [facility] MR BRAIN W AND WO CONTRAST ( ROUTINE)on 03-02-2024 MR BRAIN W AND WO CONTRAST (ROUTINE) EXAMINATION: MR BRAIN W AND WO CONTRAST (ROUTINE) HISTORY: Abnormal CT. TECHNIQUE: Routine brain MRI protocol without and with contrast including diffusion images. CONTRAST: 14 mL gadolinium (Prohance) injection COMPARISON: None available. RESULT: Acute Change: There is no evidence of restricted diffusion to suggest an acute infarct. Hemorrhage: No evidence of prior parenchymal hemorrhage. Mass Lesion/ Mass Effect: 1.2 cm enhancing mass at the right cerebellopontine angle. No extra-axial fluid collection or abnormal enhancement elsewhere. No significant mass effect. Chronic Change: Scattered patchy areas of increased T2 and FLAIR signal are present in the supratentorial white matter which is a nonspecific finding but likely represents mild chronic microvascular ischemia. Parenchyma: There is mild generalized parenchymal volume loss. Ventricles: Normal caliber and morphology. Skull Base: Hypothalamic and pituitary region are grossly normal. Craniocervical junction is normal. No significant marrow replacement process. Vasculature: Major intracranial arterial structures, and dural venous sinuses show typical flow void, suggesting patency. Other: Mild because of thickening of the pineal sinuses especially the ethmoid air cells and right maxillary sinus. Mastoid air cells are clear. The orbits are unremarkable. The extracranial soft tissues are unremarkable. IMPRESSION: 1.2 cm enhancing mass at the right cerebellopontine angle with leading differential including vestibular schwannoma and meningioma. ELECTRONICALLY SIGNED BY: Ryan Selby MD Normal Not Available BI MAMMOGRAM DIAGNOSTIC KIKE SYNTHESIS BILATERALon 02-22-2024 BI MAMMOGRAM DIAGNOSTIC TOMOSYNTHESIS BILATERAL This is a summary report. The complete report is available in the patient's medical record. If you cannot access the medical record, please contact the sending organization for a detailed fax or copy. EXAMINATION: BI MAMMOGRAM DIAGNOSTIC TOMOSYNTHESIS BILATERAL CLINICAL HISTORY:left breast mass on ct [facility] COMPARISON: December 13, 2020. RESULT: Digital mammography and 3D tomosynthesis of bilateral breasts was performed. Density: Almost entirely fatty [1] There is no suspicious mass, asymmetry, architectural distortion, or calcification. Typically benign calcifications. Overall appearance stable. IMPRESSION: BIRADS 2 - Benign Follow-up: Routine Screening Mamm Board Certified Radiologists. Accredited by the ACR and FDA. MAMMOGRAPHY IS VERY IMPORTANT TO YOUR HEALTH. THE [place] [employer] GUIDELINES RECOMMEND THAT WOMEN 40 YEARS OF AGE AND OLDER SHOULD HAVE A MAMMOGRAM EVERY YEAR. A REMINDER LETTER WILL BE SENT AT THE APPROPRIATE TIME. THIS FACILITY UTILIZES A REMINDER SYSTEM TO ENSURE ALL PATIENTS RECEIVE REMINDER NOTIFICATIONS AT THE APPROPRIATE TIME BASED ON THE RECOMMENDATIONS OF THIS EXAM. THIS INCLUDES REMINDERS FOR ROUTINE SCREENING MAMMOGRAMS, DIAGNOSTIC MAMMOGRAMS IN WHICH THE PATIENT IS ASKED TO RETURN FOR ADDITIONAL VIEWS, OR OTHER BREAST IMAGING INTERVENTIONS WHEN APPROPRIATE. THE PATIENT WILL BE PLACED IN THE APPROPRIATE REMINDER SYSTEM INCLUDING A REMINDER AT THE APPROPRIATE TIME FOR ANY PENDING ADDITIONAL VIEWS. TRANSCRIBED BY: ELECTRONICALLY SIGNED BY: Bartolome Monson MD Normal Not Available BI US BREAST LIMITED LEFTon 02-22-2024 BI US BREAST LIMITED LEFT This is a summary report. The complete report is available in the patient's medical record. If you cannot access the medical record, please contact the sending organization for a detailed fax or copy. FINDINGS: Sonographic evaluation of the left breast performed correlation made with the same day bilateral mammogram and prior mammogram of December 13, 2020 demonstrates mild periareolar ductal dilatation, no suspicious nodule or mass. IMPRESSION: BI-RADS 2-Benign TRANSCRIBED BY: ELECTRONICALLY SIGNED BY: Bartolome Monson MD Normal Not Available CBC AND AUTO DIFFon 02-11-20 24 ABSOLUTE BASOPHIL 0.0 X10E9/L Normal 0.0-0.2 [facility] Comment on above: Performed By: #### 1 3965-9, CBCA, FEPR, THYR, 2276-4, 2132-9, 2284-8, IMEL, SPE #### [facility] ([id number]) [address] [place] [address] #### MTHFRS #### [facility] ([id number]) [address] [place] [address] ABSOLUTE NEUTROPHIL 3.0 X10E9/L Normal 1.5-6.[address] [facility] Comment on above: Performed By: #### 1 3965-9, CBCA, FEPR, THYR, 2276-4, 2131-9, 2284-8, IMEL, SPE #### [facility] ([id number]) [address] [place] [address] #### MTHFRS #### [facility] ([id number]) [address] [place] [address] Basophils/100 WBC (Bld) 0.9 % Normal [facility] Comment on above: Performed By: #### 1 3965-9, CBCA, FEPR, THYR, 2276-4, 2132-9, 2284-8, IMEL, SPE #### [facility] ([id number]) [address] [place] [address], [address] [address] #### MTHFRS #### [facility] ([id number]) [address] [place] [address]446 Eosinophils (Bld) [#/Vol] 0.1 10*3/uL Normal 0.0-0.4 [facility] Comment on above: Performed By: #### 1 3965-9, CBCA, FEPR, THYR, 6-4, 2132-07, 8, IMEL, SPE #### [facility] ([id number]) [address], [address] [place] [address] #### MTHFRS #### [facility] ([id number]) [address] [place] [address] Eosinophils/100 WBC (Bld) 1.8 % Normal [facility] Comment on above: Performed By: #### 1 3965-9, CBCA, FEPR, THYR, 2276-02, 2132-07, 2284-06, IMEL, SPE #### [facility] ([id number]) [address], [address] [place] [address] #### MTHFRS #### [facility] ([id number]) [address] [place] [address] Erythrocyte distribution width (RBC) [Ratio] 15.1 % High 11.5-15.0 [facility] Comment on above: Performed By: #### 1 3965-9, CBCA, FEPR, THYR, 2276-02, 2132-07, 2284-06, IMEL, SPE #### [facility] ([id number]) [address], [address] [place] [address] #### MTHFRS #### [facility] ([id number]) [address] [place] [address] Hematocrit (Bld) [Volume fraction] 39.6 % Normal 35-47 [facility] Comment on above: Performed By: #### 1 3965-9, CBCA, FEPR, THYR, 2275-4, 2132-07, 2284-06, IMEL, SPE #### [facility] ([id number]) [address], [address] [place] [address] #### MTHFRS #### [facility] ([id number]) [address] [place] [address] Hemoglobin (Bld) [Mass/Vol] 13.5 g/dL Normal 11.7-15.5 [facility] Comment on above: Performed By: #### 1 3965-9, CBCA, FEPR, THYR, 2276-4, 2131-9, 4-8, IMEL, SPE #### [facility] ([id number]) [address], [address] [place] [address] #### MTHFRS #### [facility] ([id number]) [address] [place] [address] Lymphocytes (Bld) [#/Vol] 1.5 10*3/uL Normal 1.0-3.5 [facility] Comment on above: Performed By: #### 1 3965-9, CBCA, FEPR, THYR, 6-4, 2131-9, 4-8, IMEL, SPE #### [facility] ([id number]) [address], [address] [place] [address] #### MTHFRS #### [facility] ([id number]) [address] [place] [address] Lymphocytes/100 WBC (Bld) 28.5 % Normal [facility] Comment on above: Performed By: #### 1 3965-9, CBCA, FEPR, THYR, 6-4, 2131-9, 4-8, IMEL, SPE #### [facility] ([id number]) [address], [address] [place] [address] #### MTHFRS #### [facility] ([id number]) [address] [place] [address] MCH (RBC) [Entitic mass] 29.0 pg Normal 27-34 [facility] Comment on above: Performed By: #### 1 3965-9, CBCA, FEPR, THYR, 2275-, 2132-07, 2284-06, IMEL, SPE #### [facility] ([id number]) [address], [address] [place] [address] #### MTHFRS #### [facility] ([id number]) [address] [place] [address] MCHC (RBC) [Mass/Vol] 34.0 g/dL Normal 32-36 [facility] Comment on above: Performed By: #### 1 3965-9, CBCA, FEPR, THYR, 2276-02, 2132-07, 2284-06, IMEL, SPE #### [facility] ([id number]) [address], [address] [place] [address] #### MTHFRS #### [facility] ([id number]) [address] [place] [address]645 MCV (RBC) [Entitic vol] 85 fL Normal 80-100 P [facility] Comment on above: Performed By: #### 1 3965-9, CBCA, FEPR, THYR, 2276-02, 2132-07, 2284-06, IMEL, SPE #### [facility] ([id number]) [address], [address] [place] [address] #### MTHFRS #### [facility] ([id number]) [address] [place] [address] Monocytes (Bld) [#/Vol] 0.5 10*3/uL Normal 0-0.9 [facility] Comment on above: Performed By: #### 1 3965-9, CBCA, FEPR, THYR, 2276-02, 2132-07, 2284-8, IMEL, SPE #### [facility] ([id number]) [address], [address] [place] [address] #### MTHFRS #### [facility] ([id number]) [address] [place] [address]394 Monocytes/100 WBC (Bld) 10.3 % Normal [facility] Comment on above: Performed By: #### 1 3965-9, CBCA, FEPR, THYR, 2276-4, 9, 2283-8, IMEL, SPE #### [facility] ([id number]) [address], [address] [place] [address] #### MTHFRS #### [facility] ([id number]) [address] [place] [address] 16643 Neutrophils/100 WBC (Bld) 58.5 % Normal [facility] Comment on above: Performed By: #### 1 3965-9, CBCA, FEPR, THYR, 6-4, 9, 8, IMEL, SPE #### [facility] ([id number]) [address], [address] [place] [address] #### MTHFRS #### [facility] ([id number]) [address] [place] [address] 11456 Platelet mean volume (Bld) [Entitic vol] 9.2 fL Normal 7-12 [facility] Comment on above: Performed By: #### 1 3965-9, CBCA, FEPR, THYR, 6-4, 9, 8, IMEL, SPE #### [facility] ([id number]) [address], [address] [place] [address] #### MTHFRS #### [facility] ([id number]) [address] [place] [address] 46573 Platelets (Bld) [#/Vol] 176 10*3/uL Normal 150-450 [facility] Comment on above: Performed By: #### 1 3965-9, CBCA, FEPR, THYR, 2276-4, 2132-9, 2284-8, IMEL, SPE #### [facility] ([id number]) [address] [facility], [address] [place] [address] #### MTHFRS #### [facility] ([id number]) [address] [place] [address] 21803 RBC COUNT 4.65 X10E12/L Normal 3.80-5.20 [facility] Comment on above: Performed By: #### 1 3965-9, CBCA, FEPR, THYR, 2276-4, 2-9, 2284-8, IMEL, SPE #### [facility] ([id number]) [address] [facility], [address] [place] [address] 135[address] #### MTHFRS #### [facility] ([id number]) [address] [place] [address] 17967 WBC (Bld) [#/Vol] 5.2 10*3/uL Normal 4.0-11.0 [facility] Comment on above: Performed By: #### 1 3965-9, CBCA, FEPR, THYR, 2276-4, 2131-9, 2284-8, IMEL, SPE #### [facility] ([id number]) [address] [facility], [address] [place] [address] #### MTHFRS #### [facility] ([id number]) [address] [place] [address] 65637 COMPREHENSIVE METABOLIC PANE Gadiel 02-11-2024 Albumin [Mass/Vol] 4.1 g/dL Normal 3.2-5.3 [facility] Comment on above: Performed By: #### 1 3965-9, CBCA, FEPR, THYR, 2276-4, 2-9, 2284-8, IMEL, SPE #### [facility] ([id number]) [address], [address] [place] [address] #### MTHFRS #### [facility] ([id number]) [address] [place] [address] 81689 ALP [Catalytic activity/Vol] 42 U/L Normal 39-130 [facility] Comment on above: Performed By: #### 1 3965-9, CBCA, FEPR, THYR, 2276-4, 2131-9, 4-8, IMEL, SPE #### [facility] ([id number]) [address], [address] [place] [address] #### MTHFRS #### [facility] ([id number]) [address] [place] [address] 14558 ALT [Catalytic activity/Vol] 18 U/L Normal 0-31 [facility] Comment on above: Performed By: #### 1 3965-9, CBCA, FEPR, THYR, 2276-4, 2131-9, 2283-8, IMEL, SPE #### [facility] ([id number]) [address], [address] [place] [address] #### MTHFRS #### [facility] ([id number]) [address] [place] [address] 88952 Anion gap [Moles/Vol] 7 mmol/L Normal 5-15 [facility] Comment on above: Performed By: #### 1 3965-9, CBCA, FEPR, THYR, 2276-4, 2131-9, 4-8, IMEL, SPE #### [facility] ([id number]) [address], [address] [place] [address] #### MTHFRS #### [facility] ([id number]) [address] [place] [address] 60911 AST [Catalytic activity/Vol] 27 U/L Normal 0-41 [facility] Comment on above: Performed By: #### 1 3965-9, CBCA, FEPR, THYR, 6-4, 2131-9, 4-8, IMEL, SPE #### [facility] ([id number]) [address], [address] [place] [address] #### MTHFRS #### [facility] ([id number]) [address] [place] [address] 02435 Bilirubin [Mass/Vol] 0.5 mg/dL Normal 0.3-1.[address] [facility] Comment on above: Performed By: #### 1 3965-9, CBCA, FEPR, THYR, 2275-, 2132-07, 8, IMEL, SPE #### [facility] ([id number]) [address], [address] [place] [address] #### MTHFRS #### [facility] ([id number]) [address] [place] [address] 11519 Calcium [Mass/Vol] 9.4 mg/dL Normal 8.5-10.5 [facility] Comment on above: Performed By: #### 1 3965-9, CBCA, FEPR, THYR, 2275-4, 9, 8, IMEL, SPE #### [facility] ([id number]) [address], [address] [place] [address] #### MTHFRS #### [facility] ([id number]) [address] [place] [address] 79400 Chloride [Moles/Vol] 104 mmol/L Normal 98-[address] [facility] Comment on above: Performed By: #### 1 3965-9, CBCA, FEPR, THYR, 6-4, 9, 2283-8, IMEL, SPE #### [facility] ([id number]) [address], [address] [place] [address] #### MTHFRS #### [facility] ([id number]) [address] [place] [address] CO2 [Moles/Vol] 25 mmol/L Normal 22-32 [facility] Comment on above: Performed By: #### 1 3965-9, CBCA, FEPR, THYR, 6-4, 9, 2283-8, IMEL, SPE #### [facility] ([id number]) [address], [address] [place] [address] #### MTHFRS #### [facility] ([id number]) [address] [place] [address] 26930 Creatinine [Mass/Vol] 1.01 mg/dL High 0.40-1.00 [facility] Comment on above: Result Comment: METH OD TRACEABLE TO IDMS STANDARD Performed By: #### 1 3965-9, CBCA, FEPR, THYR, 2275-, 2132-07, 2284-06, IMEL, SPE #### [facility] ([id number]) [address], [address] [place] [address] #### MTHFRS #### [facility] ([id number]) [address] [place] [address] 98899 GFR/1.73 sq M.predicted among non-blacks MDRD (S/P/Bld) [Vol rate/Area] 57 mL/min/{1.73_m2} Low >59 [facility] Comment on above: Result Comment: Reported eGFR is based on the CKD-EPI 2020 equation that does not use a race coefficient. Performed By: #### 1 3965-9, CBCA, FEPR, THYR, 2276-4, 2132-07, 2284-8, IMEL, SPE #### [facility] ([id number]) [address], [address] [place] [address] #### MTHFRS #### [facility] ([id number]) [address] [place] [address] 22878 Glucose [Mass/Vol] 114 mg/dL High 65-99 [facility] Comment on above: Performed By: #### 1 3965-9, CBCA, FEPR, THYR, 6-4, 2132-07, 2284-06, IMEL, SPE #### [facility] ([id number]) [address] [facility], [address] [place] [address] #### MTHFRS #### [facility] ([id number]) [address] [place] [address] 42902 Potassium [Moles/Vol] 4.2 mmol/L Normal 3.5-5.0 [facility] Comment on above: Performed By: #### 1 3965-9, CBCA, FEPR, THYR, 2275-4, 2132-07, 2284-06, IMEL, SPE #### [facility] ([id number]) [address], [address] [place] [address] #### MTHFRS #### [facility] ([id number]) [address] [place] [address] 73286 Protein [Mass/Vol] 7.2 g/dL Normal 6.0-8.0 [facility] Comment on above: Performed By: #### 1 3965-9, CBCA, FEPR, THYR, 6-4, 2132-07, 2284-06, IMEL, SPE #### [facility] ([id number]) [address], [address] [place] [address] #### MTHFRS #### [facility] ([id number]) [address] [place] [address], [place] [address] Sodium [Moles/Vol] 136 mmol/L Normal 134-146 [facility] Comment on above: Performed By: #### 1 3965-9, CBCA, FEPR, THYR, 2276-4, 2132-9, 2284-8, IMEL, SPE #### [facility] ([id number]) [address], [address] [place] [address] #### MTHFRS #### [facility] ([id number]) [address] [place] [address] Urea nitrogen [Mass/Vol] 22 mg/dL Normal 5-27 [facility] Comment on above: Performed By: #### 1 3965-9, CBCA, FEPR, THYR, 2276-4, 2132-9, 2284-8, IMEL, SPE #### [facility] ([id number]) [address] [facility], [address] [place] [address] #### MTHFRS #### [facility] ([id number]) [address] [place] [address] CT ABDOMEN AND PELVIS W CONT on [...] Mooney MD on 02/11/2024 2:04 PM Normal [facility] CT BRAIN WO CONTon CT BRAIN WO [...] Dharmesh Mittal on 02/11/2024 1:52 PM Normal [facility] CT CERVICAL SPINE WO CONTon 02-11-2024 CT [...] Davis DO on 02/11/2024 1:52 PM Normal [facility] CT CHEST W CONTon 02-11-2024 CT CHEST [...] mammographic workup and evaluation is recommended. Beatrice Foster, et al. Guidelines for Management of Incidental Pulmonary Nodules Detected on CT Images: From the Fleischner Society 2017. Radiology. 2017 Jeremi;284(1):228-243. Approved by Resident Mara Thomas DO on 02/11/2024 2:01 PM I, Ileana Ann MD have personally reviewed the image(s) and agree with and/or edited the report Finalized by Ileana Ann MD on 02/11/2024 2:19 PM Normal [facility] LIPASEon 02-11-2024 Lipase [Catalytic activity/Vol] 38 U/L Normal 17-40 [facility] Comment on above: Performed By: #### 1 3965-9, CBCA, FEPR, THYR, 2276-4, 9, 2283-8, IMEL, SPE #### [facility] ([id number]) [address] [place] [address], [address] [place] [address] #### MTHFRS #### [facility] ([id number]) [address] [place] [address] 14599 CBC AND AUTO DIFFon 01-11-20 24 ABSOLUTE BASOPHIL 0.1 X10E9/L Normal 0.0-0.2 [facility] Comment on above: Performed By: #### 1 3965-9, CBCA, FEPR, THYR, 6-4, 9, 8, IMEL, SPE #### [facility] ([id number]) [address] [place] [address], [address] [place] [address] #### MTHFRS #### [facility] ([id number]) [address] [place] [address] 00189 ABSOLUTE NEUTROPHIL 2.4 X10E9/L Normal 1.5-6.[address] [facility] Comment on above: Performed By: #### 1 3965-9, CBCA, FEPR, THYR, 2276-4, 9, 2284-8, IMEL, SPE #### [facility] ([id number]) [address], [address] [place] [address] #### MTHFRS #### [facility] ([id number]) [address] [place] [address] 27588 Basophils/100 WBC (Bld) 1.4 % Normal P [facility] Comment on above: Performed By: #### 1 3965-9, CBCA, FEPR, THYR, 6-4, 2131-9, 2283-8, IMEL, SPE #### [facility] ([id number]) [address], [address] [place] [address] #### MTHFRS #### [facility] ([id number]) [address] [place] [address] 64821 Eosinophils (Bld) [#/Vol] 0.1 10*3/uL Normal 0.0-0.4 [facility] Comment on above: Performed By: #### 1 3965-9, CBCA, FEPR, THYR, 6-4, 9, 2284-06, IMEL, SPE #### [facility] ([id number]) [address], [address] [place] [address] #### MTHFRS #### [facility] ([id number]) [address] [place] [address] 49758 Eosinophils/100 WBC (Bld) 2.8 % Normal [facility] Comment on above: Performed By: #### 1 3965-9, CBCA, FEPR, THYR, 6-4, 9, 8, IMEL, SPE #### [facility] ([id number]) [address], [address] [place] [address] #### MTHFRS #### [facility] ([id number]) [address] [place] [address] 18588 Erythrocyte distribution width (RBC) [Ratio] 15.5 % High 11.5-15.0 [facility] Comment on above: Performed By: #### 1 3965-9, CBCA, FEPR, THYR, 2275-4, 2132-07, 8, IMEL, SPE #### [facility] ([id number]) [address] [facility], [address] [place] [address] #### MTHFRS #### [facility] ([id number]) [address] [place] [address] 35357 Hematocrit (Bld) [Volume fraction] 38.4 % Normal 35-47 [facility] Comment on above: Performed By: #### 1 3965-9, CBCA, FEPR, THYR, 2276-02, 2132-07, 2284-06, IMEL, SPE #### [facility] ([id number]) [address] [facility], [address] [place] [address] #### MTHFRS #### [facility] ([id number]) [address] [place] [address] 55691 Hemoglobin (Bld) [Mass/Vol] 12.5 g/dL Normal 11.7-15.5 [facility] Comment on above: Performed By: #### 1 3965-9, CBCA, FEPR, THYR, 2276-02, 2132-07, 2284-06, IMEL, SPE #### [facility] ([id number]) [address] [facility], [address] [place] [address] #### MTHFRS #### [facility] ([id number]) [address] [place] [address] 08011 Lymphocytes (Bld) [#/Vol] 1.7 10*3/uL Normal 1.0-3.5 [facility] Comment on above: Performed By: #### 1 3965-9, CBCA, FEPR, THYR, 2276-02, 2131-9, 4-8, IMEL, SPE #### [facility] ([id number]) [address], [address] [place] [address] #### MTHFRS #### [facility] ([id number]) [address] [place] [address] 03161 Lymphocytes/100 WBC (Bld) 35.8 % Normal [facility] Comment on above: Performed By: #### 1 3965-9, CBCA, FEPR, THYR, 6-4, 2131-9, 4-8, IMEL, SPE #### [facility] ([id number]) [address], [address] [place] [address] #### MTHFRS #### [facility] ([id number]) [address] [place] [address] 76612 MCH (RBC) [Entitic mass] 28.5 pg Normal 27-34 [facility] Comment on above: Performed By: #### 1 3965-9, CBCA, FEPR, THYR, 6-4, 2131-9, 2283-8, IMEL, SPE #### [facility] ([id number]) [address], [address] [place] [address] #### MTHFRS #### [facility] ([id number]) [address] [place] [address] 80276 MCHC (RBC) [Mass/Vol] 32.7 g/dL Normal 32-36 [facility] Comment on above: Performed By: #### 1 3965-9, CBCA, FEPR, THYR, 6-4, 2131-9, 4-8, IMEL, SPE #### [facility] ([id number]) [address], [address] [place] [address] #### MTHFRS #### [facility] ([id number]) [address] [place] [address] 92162 MCV (RBC) [Entitic vol] 87 fL Normal 80-100 [facility] Comment on above: Performed By: #### 1 3965-9, CBCA, FEPR, THYR, 6-4, 9, 2283-8, IMEL, SPE #### [facility] ([id number]) [address], [address] [place] [address] #### MTHFRS #### [facility] ([id number]) [address] [place] [address] 99723 Monocytes (Bld) [#/Vol] 0.5 10*3/uL Normal 0-0.9 [facility] Comment on above: Performed By: #### 1 3965-9, CBCA, FEPR, THYR, 2275-, 2132-07, 2284-06, IMEL, SPE #### [facility] ([id number]) [address], [address] [place] [address] #### MTHFRS #### [facility] ([id number]) [address] [place] [address] 20845 Monocytes/100 WBC (Bld) 10.0 % Normal [facility] Comment on above: Performed By: #### 1 3965-9, CBCA, FEPR, THYR, 6-4, 2132-07, 2284-06, IMEL, SPE #### [facility] ([id number]) [address], [address] [place] [address] #### MTHFRS #### [facility] ([id number]) [address] [place] [address] 12198 Neutrophils/100 WBC (Bld) 50.0 % Normal [facility] Comment on above: Performed By: #### 1 3965-9, CBCA, FEPR, THYR, 6-4, 2132-07, 2284-8, IMEL, SPE #### [facility] ([id number]) [address], [address] [place] [address] #### MTHFRS #### [facility] ([id number]) [address] [place] [address] 34554 Platelet mean volume (Bld) [Entitic vol] 9.6 fL Normal 7-12 [facility] Comment on above: Performed By: #### 1 3965-9, CBCA, FEPR, THYR, 6-4, 9, 8, IMEL, SPE #### [facility] ([id number]) [address], [address] [place] [address] #### MTHFRS #### [facility] ([id number]) [address] [place] [address] 70880 Platelets (Bld) [#/Vol] 194 10*3/uL Normal 150-450 [facility] Comment on above: Performed By: #### 1 3965-9, CBCA, FEPR, THYR, 2275-4, 2132-07, 2284-06, IMEL, SPE #### [facility] ([id number]) [address], [address] [place] [address] #### MTHFRS #### [facility] ([id number]) [address] [place] [address] 01398 RBC COUNT 4.41 X10E12/L Normal 3.80-5.20 [facility] Comment on above: Performed By: #### 1 3965-9, CBCA, FEPR, THYR, 6-4, 2132-07, 8, IMEL, SPE #### [facility] ([id number]) [address], [address] [place] [address] #### MTHFRS #### [facility] ([id number]) [address] [place] [address] 40983 WBC (Bld) [#/Vol] 4.9 10*3/uL Normal 4.0-11.0 [facility] Comment on above: Performed By: #### 1 3965-9, CBCA, FEPR, THYR, 2276-4, 2132-9, 2284-8, IMEL, SPE #### [facility] ([id number]) [address] [place] [address], [address] [place] [address] #### MTHFRS #### [facility] ([id number]) [address] [place] [address] 85924 Clinical Pathologyon 024 Clinical Pathology Normal [facility] Comment on above: Result Comment: [facility] [address] [place] [address] Clinical Pathology Report Patient Name:ANGELA RUTH:1945 (Age: 78)Gender:FTaken:4Reported:01/14/2024hysician(s):MARCE Rayo ([phone])Copy To: Rec. #:[id number]: #[id number] Final Pathologic Diagnosis No monoclonal protein identified. Report Electronically Signed Out sb/4Dduncan Alamo MD Interpretation performed at [facility], [address] [place] [address], License number: [id number]. Clinical History G25.0, R26.89, G62.9, R79.0. SERUM IEP SAMPLE NUMBER: [id number] IMMUNOGLOBULIN LEVELS (mg/dL): IgG : 652 IgA : 225 IgM : 64 Free [place]: 3.45 Free Lambda: 2.10 Free [place]/Lambda ratio: 1.64 Specimen(s) Received Serum IEP Fee Codes(s): 1; 57120-34 FERRITINon 01-11-2024 Ferritin [Mass/Vol] 47 ng/mL Normal 11-307 [facility] Comment on above: Performed By: #### 1 3965-9, CBCA, FEPR, THYR, 2276-4, 2131-9, 2284-8, IMEL, SPE #### [facility] ([id number]) [address], [address] [place] [address] #### MTHFRS #### [facility] ([id number]) [address] [place] [address] 99843 Folate [Mass/Vol]on 01-11-20 24 FOLIC ACID >25.0 Normal >5.8 [facility] Comment on above: Result Comment: NEW REFERENCE RANGE Performed By: #### 1 3965-9, CBCA, FEPR, THYR, 6-4, 2131-9, 2284-8, IMEL, SPE #### [facility] ([id number]) [address], [address] [place] [address] #### MTHFRS #### [facility] ([id number]) [address] [place] [address] 28163 HGB A1C (GLYCO-HGB)on 2023 Glucose [Mass/Vol] 108 mg/dL Normal [facility] Comment on above: Performed By: #### 1 3965-9, CBCA, FEPR, THYR, 6-4, 2131-9, 2284-8, IMEL, SPE #### [facility] ([id number]) [address], [address] [place] [address] #### MTHFRS #### [facility] ([id number]) [address] [place] [address] 87870 HbA1c (Bld) [Mass fraction] 5.4 % Normal 4.4-5.6 [facility] Comment on above: Result Comment: NOTE ADA [...] THYR, 6-4, 9, 8, IMEL, SPE #### [facility] ([id number]) [address] [facility] [address] [place] [address] #### MTHFRS #### [facility] ([id number]) [address] [place] [address] 36296 Homocysteine [Moles/Vol]on 0 01-11-2024 HOMOCYSTEINE 14.23 mcmol/L Normal 3.36-20.44 [facility] Comment on above: Performed By: #### 1 3965-9, CBCA, FEPR, THYR, 2276-02, 2132-07, 2284-06, IMEL, SPE #### [facility] ([id number]) [address] [place] [address], [address] [address] #### MTHFRS #### [facility] ([id number]) [address] [place] [address] 69618 IMMUNOELECTROPHORESIS FOR TH ERAPY MONITORINGon 01-11-2024 FREE IRASEMA/LAMBD RATIO 1.64 Normal 0.26-1.[address] [facility] Comment on above: Performed By: #### 1 3965-9, CBCA, FEPR, THYR, 6-4, 2132-07, 2284-06, IMEL, SPE #### [facility] ([id number]) [address] [place] [address], [facility] [address] [place] [address] #### MTHFRS #### [facility] ([id number]) [address] [place] [address] 75501 FREE KAPPA LT CHAINS 3.45 mg/dL High 0.33-1.[address] [facility] Comment on above: Performed By: #### 1 3965-9, CBCA, FEPR, THYR, 6-4, 9, 2283-8, IMEL, SPE #### [facility] ([id number]) [address] [facility], [address] [place] [address] #### MTHFRS #### [facility] ([id number]) [address] [place] [address] FREE LAMBDA LT CHAINS 2.10 mg/dL Normal 0.57-2.63 [facility] Comment on above: Performed By: #### 1 3965-9, CBCA, FEPR, THYR, 6-4, 9, 8, IMEL, SPE #### [facility] ([id number]) [address], [address] [place] [address] #### MTHFRS #### [facility] ([id number]) [address] [place] [address] IgA [Mass/Vol] 225 mg/dL Normal 68-378 [facility] Comment on above: Performed By: #### 1 3965-9, CBCA, FEPR, THYR, 6-4, 2132-07, 8, IMEL, SPE #### [facility] ([id number]) [address], [address] [place] [address] #### MTHFRS #### [facility] ([id number]) [address] [place] [address]26 IgG [Mass/Vol] 652 mg/dL Normal 635-1741 [facility] Comment on above: Performed By: #### 1 3965-9, CBCA, FEPR, THYR, 6-4, 9, 8, IMEL, SPE #### [facility] ([id number]) [address], [address] [place] [address] #### MTHFRS #### [facility] ([id number]) [address] [place] [address] IgM [Mass/Vol] 64 mg/dL Normal 45-281 [facility] Comment on above: Performed By: #### 1 3965-9, CBCA, FEPR, THYR, 2276-4, 2132-9, 2284-8, IMEL, SPE #### [facility] ([id number]) [address], [address] [place] [address] #### MTHFRS #### [facility] ([id number]) [address] [place] [address] IMMUNE PROFILE INTERP SEE SEPARATE REPORT Normal [facility] Comment on above: Performed By: #### 1 3965-9, CBCA, FEPR, THYR, 2276-4, 2132-9, 2284-8, IMEL, SPE #### [facility] ([id number]) [address] [place] [address], [address] [address] #### MTHFRS #### [facility] ([id number]) [address] [place] [address] IRON PROFILEon 01-11-2024 Iron [Mass/Vol] 100 ug/dL Normal 50-170 [facility] Comment on above: Performed By: #### 1 3965-9, CBCA, FEPR, THYR, 2276-4, 2132-9, 2284-8, IMEL, SPE #### [facility] ([id number]) [address] [place] [address], [address] [place] [address] #### MTHFRS #### [facility] ([id number]) [address] [place] [address] IRON BINDING 438 ug/dL High 250-425 [facility] Comment on above: Performed By: #### 1 3965-9, CBCA, FEPR, THYR, 2276-4, 2-9, 4-8, IMEL, SPE #### [facility] ([id number]) [address], [address] [place] [address] #### MTHFRS #### [facility] ([id number]) [address] [place] [address] IRON SATURATION 23 % SATURATION Normal 15-[address] [facility] Comment on above: Performed By: #### 1 3965-9, CBCA, FEPR, THYR, 2276-4, 2131-9, 2283-8, IMEL, SPE #### [facility] ([id number]) [address], [address] [place] [address] #### MTHFRS #### [facility] ([id number]) [address] [place] [address] MTHFRon 01-11-2024 MTHFR INTERPRETATION SEE NOTE Normal [facility] Comment on above: Result Comment: NOTE Indication for testing: Determine genetic contribution to hyperhomocysteinemia. Negative: Neither of the common MTHFR gene variants tested, c.665C>T (previously designated C677T) and c.1286A>C (previously designated H4104Y), were detected. Other causes of elevated homocysteine [...] has an effect on cardiovascular disease. The [employer] Practice Guidelines indicate [...] a contributing factor to hyperhomocysteinemia. Variants Tested: c.665C>T(p.Yke822Anc) and c.1286A>C(p.Fyj222Hfl). (legacy names C677T and U8491N, respectively). Clinical Sensitivity: Undefined; hyperhomocysteinemia is caused [...] developed and its performance characteristics determined by [facility]. It has not been cleared or approved by the [place] Food and Drug Administration. This test was performed in a CLIA certified laboratory and is intended for clinical purposes. Counseling and informed consent are recommended for genetic testing. Consent forms are available online. Performed By: [facility] [address] [place] [address] Scrap Crane Operator: Jacob Sparks MD, PhD [facility] Number: [id number] Performed By: #### 1 3965-9, CBCA, FEPR, THYR, 6, 2132-07, 2284-06, JOSHUA GONZALEZ #### [facility] ([id number]) [address] [place] [address], [address] [place] [address] #### MTHFRS #### [facility] ([id number]) [address] [place] [address], [place] [address] MTHFR MUT [id number] Negative Normal [facility] Comment on above: Performed By: #### 1 3965-9, CBCA, FEPR, THYR, 2276-, 2132-07, 8, CARLOS SPE #### [facility] ([id number]) [address] [facility], [address] [place] [address] #### MTHFRS #### [facility] ([id number]) [address] [place] [address] MTHFR MUT [id number] Negative Normal [facility] Comment on above: Performed By: #### 1 3965-9, CBCA, FEPR, THYR, 2276-4, 2131-9, 4-8, IMEL, SPE #### [facility] ([id number]) [address] [facility], [address] [place] [address] #### MTHFRS #### [facility] ([id number]) [address] [place] [address] MTHFR PCR SPECIMEN WHOLE BLOOD Normal [facility] Comment on above: Performed By: #### 1 3965-9, CBCA, FEPR, THYR, 6-4, 2131-9, 4-8, IMEL, SPE #### [facility] ([id number]) [address] [facility], [address] [place] [address] #### MTHFRS #### [facility] ([id number]) [address] [place] [address] Methylmalonate [Moles/Vol]on 01-11-2024 MMA QN 0.14 umol/L Normal <=0.40 [facility] Comment on above: Result Comment: NOTE This test was developed and its performance characteristics determined by [facility]'s Dre JSteven [facility] [place] (-PLMI). It has not been cleared or approved by the FDA. RT-PLNM is regulated under CLIA as qualified to perform high-complexity testing. This test is used for clinical purposes. It should not be regarded as investigational or for research. Test Performed By: [place] [address] Scrap Crane Operator: Berry Larsen III, M.D. CLIA #[id number] Performed By: #### 1 3965-9, CBCA, FEPR, THYR, 2276-4, 2-9, 2284-8, IMEL, SPE #### [facility] ([id number]) [address], [address] [place] [address] #### MTHFRS #### [facility] ([id number]) [address] [place] [address] SERUM PROTEIN ELECTROPHORESI Son 01-11-2024 Albumin [Mass/Vol] 4.0 g/dL Normal 3.4-5.3 [facility] Comment on above: Performed By: #### 1 3965-9, CBCA, FEPR, THYR, 6-4, 2131-9, 4-8, IMEL, SPE #### [facility] ([id number]) [address] [facility], [address] [place] [address] #### MTHFRS #### [facility] ([id number]) [address] [place] [address] ALPHA 1 GLOBULIN 0.3 g/dL Normal 0.1-0.4 [facility] Comment on above: Performed By: #### 1 3965-9, CBCA, FEPR, THYR, 6-4, 2131-9, 4-8, IMEL, SPE #### [facility] ([id number]) [address], [address] [place] [address] #### MTHFRS #### [facility] ([id number]) [address] [place] [address] ALPHA 2 GLOBULIN 0.8 g/dL Normal 0.4-1.1 [facility] Comment on above: Performed By: #### 1 3965-9, CBCA, FEPR, THYR, 6-4, 2-9, 2284-8, IMEL, SPE #### [facility] ([id number]) [address] [place] [address], [address] [place] [address] #### MTHFRS #### [facility] ([id number]) [address] [place] [address] BETA GLOBULIN 0.8 g/dL Normal 0.5-1.2 [facility] Comment on above: Performed By: #### 1 3965-9, CBCA, FEPR, THYR, 2276-4, 2131-9, 2284-8, IMEL, SPE #### [facility] ([id number]) [address] [place] [address], [facility] [address] [place] [address] #### MTHFRS #### [facility] ([id number]) [address] [place] [address] GAMMA GLOBULIN 0.7 g/dL Normal 0.5-1.6 [facility] Comment on above: Performed By: #### 1 3965-9, CBCA, FEPR, THYR, 6-4, 2131-9, 4-8, IMEL, SPE #### [facility] ([id number]) [address] [place] [address], [address] [address] #### MTHFRS #### [facility] ([id number]) [address] [place] [address] PROT. ELECTROPHORESIS INTERP Unremarkable protein distribution, no monoclonal bands. Normal [facility] Comment on above: Performed By: #### 1 3965-9, CBCA, FEPR, THYR, 6-4, 2131-9, 4-8, IMEL, SPE #### [facility] ([id number]) [address] [place] [address] #### MTHFRS #### [facility] ([id number]) [address] [place] [address] Protein [Mass/Vol] 6.5 g/dL Normal 6.0-8.0 [facility] Comment on above: Performed By: #### 1 3965-9, CBCA, FEPR, THYR, 6-4, 2131-9, 4-8, IMEL, SPE #### [facility] ([id number]) [address], [address] [place] [address] #### MTHFRS #### [facility] ([id number]) [address] [place] [address] THYROID PROFILEon 01-11-2024 Free T4 [Mass/Vol] 1.09 ng/dL Normal 0.61-1.60 [facility] Comment on above: Performed By: #### 1 3965-9, CBCA, FEPR, THYR, 6-4, 2132-07, 2283-8, IMEL, SPE #### [facility] ([id number]) [address] [facility], [address] [place] [address] #### MTHFRS #### [facility] ([id number]) [address] [place] [address] TSH 0.60 uIU/mL Normal 0.49-4.67 [facility] Comment on above: Performed By: #### 1 3965-9, CBCA, FEPR, THYR, 6-4, 9, 8, IMEL, SPE #### [facility] ([id number]) [address], [address] [place] [address] #### MTHFRS #### [facility] ([id number]) [address] [place] [address] VITAMIN B12on 01-11-2024 Cobalamin (Vitamin B12) [Mass/Vol] 407 pg/mL Normal 180-914 [facility] Comment on above: Performed By: #### 1 3965-9, CBCA, FEPR, THYR, 6-4, 2132-07, 2283-8, IMEL, SPE #### [facility] ([id number]) [address], [address] [place] [address] #### MTHFRS #### [facility] ([id number]) [address] [facility], [place] [address] DEXA SCAN CENTRAL SKELETALon 12-06-2023 DEXA SCAN [...] determined by BMD measurement alone. Finalized by Ileana Ann MD on 12/06/2023 2:10 AM Normal [facility] CT Abdomen/Pelvis w + w/o Co ntraston [...] by Felix Dominguez on 12/07/2022 1159 Normal [facility] XR HAND LEFT (MIN 3 VIEWS)on 11-07-2022 [...] Matt Cowart MD 11/07/22 Final result Normal [facility] XR HAND LEFT (MIN 3 VIEWS) [...] Matt Cowart MD 11/07/22 Final result Normal [facility] XR Chest 2 Views*on 09-10-20 XR [...] by Bartolome Monson on 09/10/2022 1507 Normal [facility] Complete Blood Count with Au to Diffon 12-11-2021 Basophils (Bld) [#/Vol] 0.07 10*3/uL Normal 0.00-0.20 [facility] Comment on above: Performed By: #### C LG, CBCAD #### [facility] [address] [place], [place] [id number] Basophils/100 WBC (Bld) 0.9 % Normal N [facility] Comment on above: Performed By: #### C LG, CBCAD #### [facility] [address] [place], [place] [id number] Eosinophils (Bld) [#/Vol] 0.17 10*3/uL Normal 0.02-0.50 [facility] Comment on above: Performed By: #### C LG, CBCAD #### [facility] [address] [place], [place] [id number] Eosinophils/100 WBC (Bld) 2.3 % Normal [facility] Comment on above: Performed By: #### C MP, CBCAD #### [facility] [address] [place], [place] [id number] Erythrocyte distribution width (RBC) [Ratio] 16.4 % High 11.0-15.0 [facility] Comment on above: Performed By: #### C MP, CBCAD #### [facility] [address] [place], [place] [id number] Hematocrit (Bld) [Volume fraction] 42.9 % Normal 35.0-47.0 [facility] Comment on above: Performed By: #### C LG, CBCAD #### [facility] [address] [place], [place] [id number] Hemoglobin (Bld) [Mass/Vol] 13.5 g/dL Normal 11.6-15.5 [facility] Comment on above: Performed By: #### C MP, CBCAD #### [facility] [address] [place], [place] [id number] Lymphocytes (Bld) [#/Vol] 2.7 10*3/uL Normal 0.9-3.9 [facility] Comment on above: Performed By: #### C MP, CBCAD #### [facility] [address] [place], [place] [id number] Lymphocytes/100 WBC (Bld) 36.1 % Normal [facility] Comment on above: Performed By: #### C MP, CBCAD #### [facility] [address] [place], [place] [id number] MCH (RBC) [Entitic mass] 27.7 pg Normal 27.0-33.0 [facility] Comment on above: Performed By: #### C MP, CBCAD #### [facility] [address] [place], [place] [id number] MCHC (RBC) [Mass/Vol] 31.5 g/dL Low 32.0-36.0 [facility] Comment on above: Performed By: #### C MP, CBCAD #### [facility] [address] [place], [place] [id number] MCV (RBC) [Entitic vol] 88 fL Normal 80-100 [facility] Comment on above: Performed By: #### C MP, CBCAD #### [facility] [address] [place], [place] [id number] Monocytes (Bld) [#/Vol] 0.8 10*3/uL Normal 0.2-0.9 [facility] Comment on above: Performed By: #### C MP, CBCAD #### [facility] [address] [place], [place] [id number] Monocytes/100 WBC (Bld) 10.8 % Normal [facility] Comment on above: Performed By: #### C MP, CBCAD #### [facility] [address] [place], [place] [id number] Neutrophils (Bld) [#/Vol] 3.7 10*3/uL Normal 1.5-7.8 [facility] Comment on above: Performed By: #### C MP, CBCAD #### [facility] [address] [place], [place] [id number] Neutrophils/100 WBC (Bld) 49.2 % Normal [facility] Comment on above: Performed By: #### C MP, CBCAD #### [facility] [address] [place], [place] [id number] Platelet mean volume (Bld) [Entitic vol] 11.00 fL Normal 7.50-12.50 [facility] Comment on above: Performed By: #### C MP, CBCAD #### [facility] [address] [place], [place] [id number] Platelets (Bld) [#/Vol] 246 10*3/uL Normal 140-400 [facility] Comment on above: Performed By: #### C MP, CBCAD #### [facility] [address] [place], [place] [id number] RBC (Bld) [#/Vol] 4.88 10*6/uL Normal 3.90-5.20 [facility] Patient Care Provider Comment on above: Performed By: #### C MP, CBCAD #### [facility] [address] [place], [place] [id number] RDW-SD 53.1 fL High 37.0-50.0 [facility] Comment on above: Performed By: #### C MP, CBCAD #### [facility] [address] [place], [place] [id number] WBC (Bld) [#/Vol] 7.5 10*3/uL Normal 3.8-11.0 [facility] Patient Care Provider Comment on above: Performed By: #### C MP, CBCAD #### [facility] [address] [place], [place] [id number] Comprehensive Metabolic Pane gadiel 12-11-2021 Albumin [Mass/Vol] 4.2 g/dL Normal 3.6-5.1 [facility] Patient Care Provider Comment on above: Performed By: #### C MP, CBCAD #### [facility] [address] [place], [place] [id number] Albumin/Globulin [Mass ratio] 1.7 {ratio} Normal 1.0-2.5 [facility] Comment on above: Performed By: #### C MP, CBCAD #### [facility] [address] [place], [place] [id number] ALP [Catalytic activity/Vol] 71 U/L Normal 35-119 [facility] Comment on above: Performed By: #### C MP, CBCAD #### [facility] [address] [facility] [place] [id number] ALT [Catalytic activity/Vol] 12 U/L Normal 6-33 [facility] Comment on above: Result Comment: 10/22 Female reference range changed. Performed By: #### C MP, CBCAD #### [facility] [address] [place], [place] [id number] Anion gap [Moles/Vol] 18 mmol/L Normal 12-20 [facility] Comment on above: Result Comment: Effe ctive 11/27/2019 reference range changed. Performed By: #### C MP, CBCAD #### [facility] [address] [place], [place] [id number] AST [Catalytic activity/Vol] 15 U/L Normal 9-34 [facility] Comment on above: Performed By: #### C MP, CBCAD #### [facility] [address] [facility] [place] [id number] Bilirubin [Mass/Vol] 0.33 mg/dL Normal 0.30-1.20 [facility] Comment on above: Performed By: #### C MP, CBCAD #### [facility] [address] [place], [place] [id number] BUN/CREA 35 Ratio High 6-22 [facility] Comment on above: Performed By: #### C MP, CBCAD #### [facility] [address] [facility] [place] [id number] Calcium [Mass/Vol] 9.4 mg/dL Normal 8.6-10.2 [facility] Comment on above: Performed By: #### C MP, CBCAD #### [facility] [address] [place], [place] [id number] Chloride [Moles/Vol] 106 mmol/L Normal 98-107 [facility] Comment on above: Performed By: #### C MP, CBCAD #### [facility] [address] [place], [place] [id number] CO2 [Moles/Vol] 24 mmol/L Normal 20-31 [facility] Comment on above: Performed By: #### C MP, CBCAD #### [facility] [address] [place], [place] [id number] Creatinine [Mass/Vol] 0.9 mg/dL Normal 0.6-1.4 [facility] Comment on above: Performed By: #### C MP, CBCAD #### [facility] [address] [place], [place] [id number] eGFRAA 70 mL/min/1.73m2 Normal >60 [facility] Comment on above: Performed By: #### C MP, CBCAD #### [facility] [address] [place], [place] [id number] eGFRNAA 58 mL/min/1.73m2 Low >60 [facility] Comment on above: Performed By: #### C MP, CBCAD #### [facility] [address] [place], [place] [id number] Globulin (S) [Mass/Vol] 2.5 g/dL Normal 1.9-3.7 [facility] Comment on above: Performed By: #### C MP, CBCAD #### [facility] [address] [place], [place] [id number] Glucose [Mass/Vol] 84 mg/dL Normal 65-99 [facility] Comment on above: Result Comment: For FASTING Glucose --- ADA reference ranges: Normal 65-99 mg/dl Prediabetes 100-125 Diabetes >/= 126 Performed By: #### C MP, CBCAD #### [facility] [address] [place], [place] [id number] Potassium [Moles/Vol] 4.3 mmol/L Normal 3.5-5.5 [facility] [place] [facility] Comment on above: Performed By: #### C MP, CBCAD #### [facility] [address] [place], [place] [id number] Protein [Mass/Vol] 6.7 g/dL Normal 6.1-8.1 [facility] [place] Patient Care Provider Comment on above: Performed By: #### C MP, CBCAD #### [facility] [address] [place] [id number] Sodium [Moles/Vol] 143 mmol/L Normal 135-146 [facility] [place] Patient Care Provider Comment on above: Performed By: #### C MP, CBCAD #### [facility] [address] [place], [place] [id number] Urea nitrogen [Mass/Vol] 33 mg/dL High 7-25 [facility] Comment on above: Performed By: #### C MP, CBCAD #### [facility] [address] [place], [place] [id number] Calciumon 06-20-2019 Calcium [Mass/Vol] 10.0 mg/dL Normal 8.4-10.2 [facility] Diabetes [facility] Comment on above: Performed By: #### 1 030, 1035, 4500, 4510, 4520, 4581 #### [facility] Unless Otherwise Noted [address] [address] / COLA #4724/CLIA # [id number] Creatinineon 06-20-2019 Creatinine [Mass/Vol] 0.9 mg/dL Normal 0.5-1.0 [facility] Comment on above: Performed By: #### 1 030, 1035, 4500, 4510, 4520, 4581 #### [facility] Unless Otherwise Noted [address] [facility] [address] [place] [address] / COLA #4724/CLIA # [id number] Creatinine [Mass/Vol] 74.8 Kg Normal [facility] Diabetes [facility] Comment on above: Performed By: #### 1 030, 1035, 4500, 4510, 4520, 4581 #### [facility] Unless Otherwise Noted [address] [address] / COLA #4724/CLIA # [id number] Creatinine [Mass/Vol] 64.8 ml/m1.73 Normal [facility] Comment on above: Performed By: #### 1 030, 1035, 4500, 4510, 4520, 4581 #### [facility] Unless Otherwise Noted [address] [address] / COLA #4724/CLIA # [id number] Creatinine [Mass/Vol] 65.1 ml/m1.73 Normal [facility] Comment on above: Performed By: #### 1 030, 1035, 4500, 4510, 4520, 4581 #### [facility] Unless Otherwise Noted [address] [address] / COLA #4724/CLIA # [id number] Creatinine [Mass/Vol] 78.7 ml/m1.73 Normal [facility] Comment on above: Performed By: #### 1 030, 1035, 4500, 4510, 4520, 4581 #### [facility] Unless Otherwise Noted [address] [address] / COLA #4724/CLIA # [id number] FT3on 06-20-2019 FT3 2.80 pg/mL Normal 2.45-5.93 [facility] Comment on above: Performed By: #### 1 030, 1035, 4500, 4510, 4520, 4581 #### [facility] Unless Otherwise Noted [address] [address] / COLA #4724/CLIA # [id number] FT4on 06-20-2019 Free T4 [Mass/Vol] 1.93 ng/dL Normal 0.78-2.44 [facility] Diabetes [facility] Comment on above: Performed By: #### 1 030, 1035, 4500, 4510, 4520, 4581 #### [facility] [place] Unless Otherwise Noted [address] [facility] [address] [place] [address] / COLA #4724/CLIA # [id number] TSHon 06-20-2019 TSH Qn 0.57 uIU/ml Normal 0.47-4.68 [facility] Comment on above: Performed By: #### 1 030, 1035, 4500, 4510, 4520, 4581 #### [facility] Unless Otherwise Noted [address] [address] / COLA #4724/CLIA # [id number] VITAMIN D 25on 06-20-2019 VITAMIN D 25 51.5 ng/ml Normal 30.0-100.0 [facility] Comment on above: Result Comment: Defi cient <20 Insufficient 20-<30 Sufficient 30-100 Potiential Toxicity >100 Performed By: #### 1 030, 1035, 4500, 4510, 4520, 4581 #### [facility] Unless Otherwise Noted [address] [facility] [address] [place] [address] / COLA #4724/CLIA # [id number] Basic Metabolic Profon 05-06 (cont.) Normal [facility] Comment on above: Result Comment: Aver age GFR for 70 or more years old: 75 mL/min/1.73sq mChronic Kidney Disease: <60 mL/min/1.73sq mKidney failure: <15 mL/min/1.73sq meGFR calculated using average adult body mass. Additional eGFR calculator available at:http://[email or web address].Korrio/multiple_crcl_2012.htmPerformed at [facility] [address] [place] [address] Performed By: #### C DP, BMP ####[facility] [place], [place] [address] [place] [address] Anion gap 14 mmol/L Normal 9-17 [facility] Comment on above: Performed By: #### C DP, BMP ####[facility] [place] [address] Calcium 9.6 mg/dL Normal 8.6-10.4 [facility] Comment on above: Performed By: #### C DP, BMP ####[facility] [place] [address] Chloride 106 mmol/L Normal 98-107 [facility] Comment on above: Performed By: #### C DP, BMP ####[facility] [place] [address] CO2 26 mmol/L Normal 20-31 [facility] Comment on above: Performed By: #### C DP, BMP ####[facility] [place] [address] Creatinine 0.91 mg/dL High 0.50-0.90 [facility] Comment on above: Performed By: #### C DP, BMP ####[facility] [place] [address] eGFR (non-black) mL/min/{1.73_m2} Normal >60 [facility] Comment on above: Performed By: #### C DP, BMP ####[facility] [place], [place] [address]jenna [place] [address] Glucose mass conc 99 mg/dL Normal 70-99 [facility] Comment on above: Performed By: #### C DP, BMP ####[facility] [place] [address] Potassium molar conc 4.2 mmol/L Normal 3.7-5.3 [facility] Comment on above: Performed By: #### C DP, BMP ####[facility] [place] [address] Sodium 146 mmol/L High 135-144 [facility] Comment on above: Performed By: #### C DP, BMP ####[address] [address] Urea nitrogen 21 mg/dL Normal 8-23 [facility] Comment on above: Performed By: #### C DP, BMP ####[address] [address] BUN/CRE Ratio NOT REPORTED Normal 9-20 [facility] Comment on above: Performed By: #### C DP, BMP ####[facility] [place] [address] Staging: NOT REPORTED Normal [facility] Comment on above: Performed By: #### C DP, BMP ####[address] [address] CBC with Diffon 05-06-2018 Abs. Basophil 0.10 k/uL Normal 0.0-0.2 [facility] Comment on above: Result Comment: Perf ormed at [facility] [address] [place] [address] Performed By: #### C DP, BMP ####[address] [address] Abs.Neutrophil (Seg) 4.00 k/uL Normal 1.3-9.1 [facility] Comment on above: Performed By: #### C DP, BMP ####[facility] [place] [address] Basophils/100 WBC Auto (Bld) 1 % Normal 0-2 [facility] Comment on above: Performed By: #### C DP, BMP ####[facility] [place] [address] Eosinophils 0.20 10*3/uL Normal 0.0-0.4 [facility] Comment on above: Performed By: #### C DP, BMP ####[address] [address] Eosinophils/100 leukocytes 2 % Normal 0-4 [facility] Comment on above: Performed By: #### C DP, BMP ####[address] [address] Erythrocyte distribution width Auto Ratio (RBC) 13.9 % Normal 11.5-14.9 [facility] Comment on above: Performed By: #### C DP, BMP ####[facility] [place], [place] [address] [place] [address] Erythrocytes (RBC) 4.68 10*6/uL Normal 4.0-5.2 [facility] Comment on above: Performed By: #### C DP, BMP ####[place] [address] [place] [address] Hematocrit (HCT) 41.8 % Normal 36-46 [facility] Comment on above: Performed By: #### C DP, BMP ####[place] [address] [place] [address] Hemoglobin mass conc (Bld) 13.7 g/dL Normal 12.0-16.0 [facility] Comment on above: Performed By: #### C DP, BMP ####[facility] [facility] [place] [address] Lymphocytes 3.20 10*3/uL Normal 1.0-4.8 [facility] Comment on above: Performed By: #### C DP, BMP ####[facility] [facility] [place] [address] Lymphocytes/100 leukocytes 39 % Normal 24-44 [facility] Comment on above: Performed By: #### C DP, BMP ####[facility] [place] [address] MCH 29.3 pg Normal 26-34 [facility] Comment on above: Performed By: #### C DP, BMP ####[facility] [facility] [place] [address] MCHC mass conc (RBC) 32.8 g/dL Normal 31-37 [facility] Comment on above: Performed By: #### C DP, BMP ####[facility] [facility] [place] [address] MCV 89.3 fL Normal 80-100 [facility] Comment on above: Performed By: #### C DP, BMP ####[facility] [facility] [place] [address] Monocytes 0.90 10*3/uL Normal 0.1-1.3 [facility] Comment on above: Performed By: #### C DP, BMP ####[facility] [facility] [place] [address] Monocytes/100 leukocytes 11 % High 1-7 [facility] Comment on above: Performed By: #### C DP, BMP ####[facility] [facility] [place] [address] Neutrophil (Seg) 47 % Normal 36-66 [facility] Comment on above: Performed By: #### C DP, BMP ####[facility] [place] [address] Platelet mean volume (PMV) 10.3 fL Normal 6.0-12.0 [facility] Comment on above: Performed By: #### C DP, BMP ####[address] [address] Platelets 232 10*3/uL Normal 150-450 [facility] Comment on above: Performed By: #### C DP, BMP ####[address] [address] WBC (Leukocytes) 8.4 10*3/uL Normal 3.5-11.0 [facility] Comment on above: Performed By: #### C DP, BMP ####[address] [address] Auto Diff Performed NOT REPORTED Normal [facility] Comment on above: Performed By: #### C DP, BMP ####[address] [address] Erythrocyte morphology NOT REPORTED Normal [facility] Comment on above: Performed By: #### C DP, BMP ####[address] [address] Erythrocytes (RBC) NOT REPORTED Normal [facility] Comment on above: Performed By: #### C DP, BMP ####[address] [address] Granulocytes/100 WBC (Bld) NOT REPORTED Normal 0.00-0.30 [facility] Comment on above: Performed By: #### C DP, BMP ####[address] [address] Immature granulocytes #/vol (Bld) NOT REPORTED Normal 0 [facility] Comment on above: Performed By: #### C DP, BMP ####[facility] [facility] [place] [address] Platelets NOT REPORTED Normal [facility] Comment on above: Performed By: #### C DP, BMP ####[facility] [place] [address] WBC Morphology NOT REPORTED Normal [facility] Comment on above: Performed By: #### C DP, BMP ####[facility] [place] [address] Vital Signs Date Time Vital Sign Value Performing Clinician Christopheri roque 04-04-2024 11:29-0400 Body height 160 cm Mandi Hoover MD Work Phone: [facility] 04-04-2024 11:29-0400 Body mass index (BMI) [Ratio] 27.18 kg/m2 Mandi Hoover MD Work Phone: [facility] 04-04-2024 11:29-0400 Body temperature 97.7 [degF] Mandi Hoover MD Work Phone: [facility] 04-04-2024 11:29-0400 Body weight 69.6 kg Mandi Hoover MD Work Phone: [facility] 04-04-2024 11:29-0400 Diastolic blood pressure 65 mm[Hg] Mandi Hoover MD Work Phone: [facility] 04-04-2024 11:29-0400 Heart rate 80 /min Mandi Hoover MD Work Phone: [facility] 04-04-2024 11:29-0400 Respiratory rate 18 /min Mandi Hoover MD Work Phone: [facility] 04-04-2024 11:29-0400 SaO2% (BldA) [Mass fraction] 96 % Mandi Hoover MD Work Phone: [facility] 04-04-2024 11:29-0400 Systolic blood pressure 105 mm[Hg] Mandi Hoover MD Work Phone: [facility] 02-24-2024 12:02-0400 Body height 160 cm Ryan Dallas MD Work Phone: [facility] 02-24-2024 12:02-0400 Body mass index (BMI) [Ratio] 27.21 kg/m2 Ryan Dallas MD Work Phone: [facility] 02-24-2024 12:02-0400 Body weight 69.67 kg Ryan Dallas MD Work Phone: [facility] 02-24-2024 12:02-0400 Diastolic blood pressure 76 mm[Hg] Ryan Dallas MD Work Phone: [facility] 02-24-2024 12:02-0400 Heart rate 78 /min Ryan Dallas MD Work Phone: [facility] 02-24-2024 12:02-0400 Respiratory rate 16 /min Ryan Dallas MD Work Phone: [facility] 02-24-2024 12:02-0400 SaO2% (BldA) [Mass fraction] 94 % Ryan Dallas MD Work Phone: [facility] 02-24-2024 12:02-0400 Systolic blood pressure 147 mm[Hg] Ryan Dallas MD Work Phone: [facility] 01-07-2024 10:29-0500 Body height 160 cm Yoanna Dorsey APRN-BEHAVIOR THERAPIST Work Phone: [facility] 01-07-2024 10:29-0500 Body mass index (BMI) [Ratio] 27.63 kg/m2 Yoanna Dorsey APRN-BEHAVIOR THERAPIST Work Phone: [facility] 01-07-2024 10:29-0500 Body weight 70.76 kg Yoanna Willian FILTER CHANGING TECHNICIAN-BEHAVIOR THERAPIST Work Phone: [facility] 01-07-2024 10:29-0500 Diastolic blood pressure 78 mm[Hg] Yoanna Dorsey FILTER CHANGING TECHNICIAN-BEHAVIOR THERAPIST Work Phone: [facility] 01-07-2024 10:29-0500 Heart rate 80 /min Yoanna Dorsey FILTER CHANGING TECHNICIAN-BEHAVIOR THERAPIST Work Phone: [facility] 01-07-2024 10:29-0500 Systolic blood pressure 124 mm[Hg] Yoanna Dorsey FILTER CHANGING TECHNICIAN-BEHAVIOR THERAPIST Work Phone: [facility] Encounters Encounter Date Encounter Type Care Provider Facility Start: 04-05-2024 End: 04-05-2024 ambulatory BIA CAO Not Available Start: 04-04-2024 End: 04-04-2024 ambulatory MANDI HOOVER Facility:[facility] Start: 04-04-2024 End: 04-04-2024 Patient encounter procedure Mandi Hoover MD Work Phone: [facility] Comment on above: Intracranial meningi brandon (HCC) (Primary Dx); Sensorineural hearing loss (SNHL) of right ear, unspecified hearing status on contralateral side; Dizziness Start: 04-03-2024 End: 04-03-2024 ambulatory BIA CAO Not Available Start: 03-24-2024 Telephone encounter Neurology Provid er Neurology Comment on above: Received Outside [facility] Records (External referral to Neurological [place]/); triage; Nurse Triage Call; Appointment Start: 03-24-2024 End: 03-24-2024 ambulatory ILEANA Castillo SEBASTIAN [facility] Start: 03-16-2024 ambulatory BIA CAO [facility] Start: 03-13-2024 End: 03-14-2024 ambulatory Adelfo Hansen MD Facility: [facility] Start: 03-10-2024 End: 03-10-2024 ambulatory [facility] Start: 03-02-2024 End: 03-03-2024 ambulatory BIA CAO Not Available Start: 02-24-2024 End: 02-24-2024 Office outpatient visit 15 minutes Ryan Dallas MD [facility] Comment on above: Essential hypertensi on (Primary Dx); LVH (left ventricular hypertrophy); Mixed hyperlipidemia; Hypotension due to drugs Start: 02-22-2024 End: 02-23-2024 ambulatory BIA CAO Not Available Start: 02-15-2024 End: 02-15-2024 ambulatory BIA CAO Not Available Start: 02-11-2024 End: 02-12-2024 Emergency department patient visit JUAN TAMEZ [facility] Start: 02-10-2024 Orders Only Ryan aquino MD Work [facility]: [facility] Comment on above: Essential hypertensi on Start: 02-09-2024 Refill Doris Hawkins RN [facility] Start: 02-07-2024 End: 02-08-2024 ambulatory Adelfo Hansen MD Facility: [facility] Start: 01-18-2024 End: 01-18-2024 ambulatory RIA SNYDER Not Available Start: 01-12-2024 End: 01-12-2024 ambulatory RIA SNYDER Not Available Start: 01-11-2024 End: 01-12-2024 ambulatory [facility] Start: 01-10-2024 End: 01-11-2024 ambulatory Adelfo Hansen MD Facility: [facility] Start: 01-07-2024 End: 01-07-2024 ambulatory [facility] Start: 01-07-2024 End: 01-07-2024 Office outpatient visit 25 minutes [facility] MASOOD-BEHAVIOR THERAPIST Work Phone: [facility] Comment on above: Migraine without aur a and without status migrainosus, not intractable (Primary Dx); Bilateral occipital neuralgia; Essential tremor; Cervicalgia; Trapezius muscle spasm; Balance problem; Psychophysiological insomnia; Polyneuropathy; Prediabetes; Essential (primary) hypertension; Abnormal level of blood mineral; Decreased hearing of both ears Start: 01-06-2024 End: 01-06-2024 ambulatory RIA SNYDER Not Available Start: 01-06-2024 End: 01-06-2024 ambulatory Ria Snyder MANAGER SPANISH Work Phone: [facility] Comment on above: General weakness (Pr imary Dx); History of falling Start: 01-04-2024 Bamboo flowsheet Ria Wrig ht MANAGER SPANISH Work Phone: [facility] Start: 01-04-2024 Bamboo flowsheet Ria Wrig ht MANAGER SPANISH Work Phone: [facility] Start: 01-04-2024 End: 01-04-2024 ambulatory RIA SNYDER Not Available Start: 01-04-2024 End: 01-04-2024 ambulatory Ria Snyder MANAGER SPANISH Work Phone: [facility] Comment on above: General weakness (Pr imary Dx); History of falling Start: 01-03-2024 Refill Bia Gaxiola Work Phone: [facility] Comment on above: Mixed hyperlipidemia (CMS/HCC) (Primary Dx); Stress incontinence of urine Start: 12-31-2023 End: 12-31-2023 ambulatory RIA SNYDER Not Available Start: 12-30-2023 Chart abstracting Elmer Freitas gs PT Work Phone: [facility] Start: 12-28-2023 End: 12-28-2023 ambulatory RIA SNYDER Not Available Start: 12-23-2023 End: 12-23-2023 ambulatory RIA SNYDER Not Available Start: 12-23-2023 End: 12-23-2023 ambulatory Ria Snyder MANAGER SPANISH Work Phone: [facility] Comment on above: General weakness (Pr imary Dx); History of falling Start: 12-21-2023 End: 12-21-2023 ambulatory RIA SNYDER Not Available Start: 12-16-2023 End: 12-16-2023 ambulatory RIA SNYDER Not Available Start: 12-13-2023 Refyuval aggarwal MD Work Phone: [facility] Start: 12-08-2023 End: 12-08-2023 ambulatory ELMER PETTIT Not Available Start: 12-07-2023 End: 12-07-2023 ambulatory SANTO Castillo SKYE Not Available Start: 12-06-2023 End: 12-06-2023 ambulatory BIA CAO Not Available Start: 12-03-2023 End: 12-04-2023 ambulatory JOHN JOHNSON [facility] Start: 11-29-2023 End: 11-29-2023 ambulatory LALIT Guillermo [facility] Start: 11-23-2023 End: 11-24-2023 ambulatory BIA CAO [...] 10-12-2022 End: 10-12-2022 ambulatory BIA Mccormick NASH [facility] Start: 09-28-2022 End: 09-28-2022 ambulatory BIA Mccormick NASH [facility] Start: 05-16-2018 End: 05-16-2018 [facility] Start: 05-06-2018 End: 05-11-2018 Ambulatory LENNY PEDRAZA [facility] Start: 05-02-2018 Patient encounter status Antonietta Johnson MD Work Phone: [employer] Work Phone: Procedures Date Procedure Procedure Detail Performing Clinician Start: 03-24-2024 Follow-up visit Follow-up ILEANA CORTES Start: 01-07-2024 Adult depression scr eening assessment Yoanna Dorsey FILTER CHANGING TECHNICIAN-BEHAVIOR THERAPIST Work Phone: Start: 11-29-2023 Follow-up visit Follow-up LALIT LEACH Start: 04-23-2023 Adult depression scr eening assessment John Johnson MD Work Phone: Start: 05-16-2018 DISCHARGE PATIENT LENNY MILO Start: 05-16-2018 BEDREST LENNY PAIZ Start: 05-16-2018 Continuous pulse oximetry LENNY MILO Start: 05-16-2018 ENCOURAGE DEEP BREAT KELSEA AND COUGHING LENNY PEDRAZA Start: 05-16-2018 NOTIFY PHYSICIAN (SPECIFY) LENNY PEDRAZA Start: 05-16-2018 NURSING COMMUNICATION M FEDERICO PEDRAZA Start: 05-16-2018 INITIATE OXYGEN THER APY PROTOCOL LENNY MILO Start: 05-16-2018 INSERT PERIPHERAL IV MA JORDAN PEDRAZA Start: 05-16-2018 VITAL SIGNS LENNY PAIZ Start: 05-06-2018 Basic metabolic pane l calcium total LENNY BRIGGSTANISHA Start: 05-06-2018 Blood count complete auto&auto difrntl wbc LENNY BRIGGSTANISHA Plan of Treatment Date Care Activity Detail Author Start: 02-10-2027 Diabetes Screening Diabetes Screening [facility] Start: 02-10-2025 Adult BMI Screening [facility] Start: 01-07-2025 Adult BMI Screening [facility] Start: 01-07-2025 Depression Screening [facility] Start: 01-07-2025 Tobacco Screening [facility] Start: 12-06-2024 Medicare Annual Wellness (AWV) Medicare Annual Wellness (AWV) [facility] Start: 11-29-2024 Adult BMI Screening Adult [facility]ening [facility] Start: 11-29-2024 Tobacco Screening Tobacco Screening [facility] Start: 10-01-2024 Fall Risk Screening Fall Risk Screening [facility] Start: 07-23-2024 Influenza vaccination [facility] Start: 07-10-2024 End: 07-10-2024 Patient encounter procedure 07/10/2024 11:00 AM EDT Office Visit [facility] [address] [place] [address] Yoanna Dorsey, FILTER CHANGING TECHNICIAN-BEHAVIOR THERAPIST [address] [place] [address] [facility] Start: 05-21-2024 Influenza vaccination Influenza Vaccine (#1) [facility] Comment on above: Postponed from 07/23/2023 (Patient Refus ed) Start: 04-23-2024 Depression Screening Depression Screening [facility] Start: 04-11-2024 End: 04-11-2024 Patient encounter procedure 04/11/2024 2:45 PM EDT [facility] [address] [place] [address] John Johnson MD [address] [place] [address] [facility] Start: 04-04-2024 End: 04-04-2024 Patient encounter procedure 04/04/2024 10:30 AM EDT Office Visit [facility] [address] [place] [address] Mandi Hoover MD [address] [place] [address] Time Frame: First available [facility] Comment on above: Time Frame: First available Start: 04-03-2024 End: 04-03-2024 Patient encounter procedure 04/03/2024 11:20 AM EDT Office Visit [facility] [address] [place] [address] Bia Cao MD [address] [place] [address] [facility] Start: 02-09-2024 End: 02-09-2024 Patient encounter procedure 02/09/2024 11:00 AM EDT Office Visit [facility] [address] [facility] [address] [place] [address] Ryan Dallas MD [address] [facility] [place] [address] [facility] Start: 01-20-2024 End: 01-20-2024 ambulatory 01/20/2024 11:00 AM EST Treatment [facility] [address] [place] [phone] Elmer Pettit, PT [address] [place] [address] [facility] Start: 01-18-2024 End: 01-18-2024 ambulatory 01/18/2024 11:30 AM EST Treatment [facility] [address] [place] [phone] Ria Snyder, MANAGER SPANISH [address] [place] [address] [facility] Start: 01-14-2024 End: 01-14-2024 ambulatory 01/14/2024 1:00 PM EST Treatment [facility] [address] [place] [phone] Ria Snyder, MANAGER SPANISH [address] [place] [address] [facility] Start: 01-12-2024 End: 01-12-2024 ambulatory 01/12/2024 12:30 PM EST Treatment [facility] [address] [place] [phone] Ria Snyder, MANAGER SPANISH [address] [place] [address] [facility] Start: 01-11-2024 End: 01-11-2024 Patient encounter procedure 01/11/2024 11:00 AM EST Office Visit [facility] [address] [place] [address] Yoanna Dorsey, FILTER CHANGING TECHNICIAN-BEHAVIOR THERAPIST [address] [place] [address] [facility] Start: 01-06-2024 End: 01-06-2024 ambulatory [facility] Start: 01-04-2024 End: 01-04-2024 ambulatory 01/04/2024 11:30 AM EST Treatment [facility] [address] [place] [phone] Ria Snyder, MANAGER SPANISH [address] [place] [address] [facility] Start: 12-31-2023 End: 12-31-2023 ambulatory 12/31/2023 10:00 AM EST Treatment [facility] [address] [place] [phone] Ria Snyder, MANAGER SPANISH [address] [place] [address] [facility] Start: 12-30-2023 End: 12-30-2023 ambulatory 12/30/2023 11:30 AM EST Treatment [facility] [address] [place] [phone] Elmer Pettit, PT [address] [place] [address] [facility] Start: 12-28-2023 End: 12-28-2023 ambulatory 12/28/2023 11:30 AM EST Treatment [facility] [address] [place] [address] Ria Snyder, MANAGER SPANISH [address] [place] [address] [facility] Start: 11-22-2023 Advance Directive Discussion Advance Directive Discussion [facility] Start: 11-22-2023 Behavioral Health Screening Behavioral Health Screening [facility] Start: 07-23-2023 COVID-19 Vaccine () COVID-19 Vaccine ( season) [facility] Start: 07-23-2023 Influenza vaccination Influenza Vaccine [facility] Start: 08-21-2021 DTaP,Tdap and Td Vaccines (2 - Td or Tdap) DTaP,Tdap and Td Vaccines (2 - Td or Tdap) [facility] Start: 08-22-2011 Urine microalbumin profile DTaP,Tdap,Td Vaccine (1 - Tdap) [facility] Start: 01-17-2010 Administration of varicella zoster vaccine Zoster (Shingles) Vaccine (2 of 3) [facility] Start: 2005 RSV Vaccine (1 - 1-dose 60+ series) RSV Vaccine (1 - 1-dose 60+ series) [facility] Start: 1995 Shingrix Vaccine (1 of 2) Shingrix Vaccine (1 of 2) [facility] Start: 1963 Adult BMI Follow Up Plan Adult BMI Follow Up Plan [facility] Start: 1963 Hepatitis C screening Hepatitis C Screening [facility] Start: 1945 Medicare Annual Wellness Visit Medicare Annual Wellness Visit [facility] End: 01-07-2025 CBC W Auto Differential panel - Blood CBC auto differential Lab Routine Essential tremor Balance problem Polyneuropathy 1 Occurrences starting 01/07/2024 until 01/07/2025 [facility] Comment on above: 1 Occurrences starting 01/07/2024 until 01/07/2025 End: 01-07-2025 Cyanocobalamin vitamin b-12 Vitamin B12 Lab Routine Balance problem Polyneuropathy 1 Occurrences starting 01/07/2024 until 01/07/2025 [facility] Comment on above: 1 Occurrences starting 01/07/2024 until 01/07/2025 End: 01-07-2025 Ferritin [Mass/volume] in Serum or Plasma Ferritin Lab Routine Polyneuropathy Abnormal level of blood mineral 1 Occurrences starting 01/07/2024 until 01/07/2025 [facility] Comment on above: 1 Occurrences starting 01/07/2024 until 01/07/2025 End: 01-07-2025 Folate [Mass/volume] in Serum or Plasma Folate Serum Lab Routine Balance problem Polyneuropathy 1 Occurrences starting 01/07/2024 until 01/07/2025 [facility] Comment on above: 1 Occurrences starting 01/07/2024 until 01/07/2025 End: 01-07-2025 Hemoglobin A1c/Hemoglobin.total in Blood Hemoglobin A1c Lab Routine Balance problem Polyneuropathy Prediabetes 1 Occurrences starting 01/07/2024 until 01/07/2025 [facility] Comment on above: 1 Occurrences starting 01/07/2024 until 01/07/2025 End: 01-07-2025 Homocysteine total Homocysteine total Lab Routine Balance problem Polyneuropathy Essential (primary) hypertension 1 Occurrences starting 01/07/2024 until 01/07/2025 [facility] Comment on above: 1 Occurrences starting 01/07/2024 until 01/07/2025 End: 01-07-2025 Immunoelectrophoresis for Therapy Monitoring Immunoelectrophoresis for Therapy Monitoring Lab Routine Balance problem Polyneuropathy 1 Occurrences starting 01/07/2024 until 01/07/2025 [facility] Comment on above: 1 Occurrences starting 01/07/2024 until 01/07/2025 End: 01-07-2025 Iron and TIBC Iron and TIBC Lab Routine Essential tremor Balance problem Polyneuropathy Abnormal level of blood mineral 1 Occurrences starting 01/07/2024 until 01/07/2025 [facility] Comment on above: 1 Occurrences starting 01/07/2024 until 01/07/2025 End: 01-07-2025 Methylenetetrahydrofolate reductase Methylenetetrahydrofolate reductase Lab Routine Balance problem Polyneuropathy 1 Occurrences starting 01/07/2024 until 01/07/2025 [facility] Comment on above: 1 Occurrences starting 01/07/2024 until 01/07/2025 End: 01-07-2025 Methylmalonic acid screen Methylmalonic acid screen La b Routine Balance problem Polyneuropathy 1 Occurrences starting 01/07/2024 until 01/07/2025 [facility] Work Phone: Comment on above: 1 Occurrences starting 01/07/2024 until 01/07/2025 End: 01-07-2025 Protein electrophoresis, serum Protein electrophoresis, serum Lab Routine Balance problem Polyneuropathy 1 Occurrences starting 01/07/2024 until 01/07/2025 [facility] Comment on above: 1 Occurrences starting 01/07/2024 until 01/07/2025 End: 01-07-2025 Thyroid profile includes TSH FT4 Thyroid profile includes TSH FT4 Lab Routine Balance problem Polyneuropathy Prediabetes 1 Occurrences starting 01/07/2024 until 01/07/2025 [facility]: 1 Occurrences starting 01/07/2024 until 01/07/2025 Immunizations Immunization Date Immunization Notes Care Provider Fa [facility] 03-12-2021 COVID-19, mRNA, LNP- S, PF, 100mcg/0.5mL Dose John Johnson MD Work Phone: [facility] 03-11-2021 Moderna SARS-CoV-2 Vaccination Ria Snyder MANAGER SPANISH Work Phone: [facility] 02-12-2021 COVID-19, mRNA, LNP- S, PF, 100mcg/0.5mL Dose John Johnson MD Work Phone: [facility] 02-11-2021 Moderna SARS-CoV-2 Vaccination Ria Snyder MANAGER SPANISH Work Phone: [facility] 11-12-2020 pneumococcal conjuga te vaccine, 13 valent John Johnson MD Work Phone: [facility] 09-17-2020 influenza, high dose seasonal, preservative-free John Johnson MD Work Phone: [facility] 09-17-2020 Seasonal, quadrivale nt, recombinant, injectable influenza vaccine, preservative free John Johnson MD Work Phone: [facility] 09-17-2020 influenza virus vacc ine, unspecified formulation John Johnson MD Work Phone: [facility] 08-30-2019 Seasonal, quadrivale nt, recombinant, injectable influenza vaccine, preservative free John Johnson MD Work Phone: [facility] 08-29-2018 influenza, injectabl e, quadrivalent, preservative free John Johnson MD Work Phone: [facility] 08-22-2015 influenza, seasonal, injectable, preservative free Ria Snyder MANAGER SPANISH Work Phone: [facility] 08-13-2015 pneumococcal polysaccharide vaccine, 23 valent Ria Snyder MANAGER SPANISH Work Phone: [facility] 08-21-2011 tetanus and diphther ia toxoids, adsorbed, preservative free, for adult use (5 Lf of tetanus toxoid and 2 Lf of diphtheria toxoid) John Johnson MD Work Phone: [facility] 11-22-2009 zoster vaccine, live Blase n Claudio MANAGER SPANISH Work Phone: [facility] 11-22-2009 zoster vaccine, unspecified formulation John Johnson MD Work Phone: [facility] Payers Date Payer Category Payer Private Health Insurance 2021 Medicare [id number] 2021 Medicare [id number] 2012 Medicare [id number] 1945 [facility] [place] [id number] 2.16. 840.1.131650.3.579.2.175 - Unknown [id number] 2.16. 840.1.128865.3.579.2.175 1945 Unknown [id number] 2.16.84 0.1.153668.3.579.2.1286 1945 Unknown [id number] 2.16.8 40.1.612421.3.579.2.1286 1945 Unknown [id number] 2.16.8 40.1.331011.3.579.2.1286 -1945 Unknown [id number] 2.16.8 40.1.929933.3.579.2.1286 194 Unknown [id number] 2.16.8 40.1.312159.3.579.2.1286 1945 Unknown [id number] 2.16.8 40.1.110214.3.579.2.1286 1945 Unknown [id number] 2.16.8 40.1.807102.3.579.2.1286 1945 Unknown [id number] 2.16.84 0.1.472818.3.579.2.1286 1945 Unknown [id number] 2.16. 840.1.544822.3.579.2.196 1945 Unknown [id number] 2.16. 840.1.119285.3.579.2.196 1945 Unknown [id number] 2.16. 840.1.455743.3.579.2. 1945 Unknown [id number] 2.16. 840.1.843534.3.579.2. 1945 Unknown [id number] 2.16. 840.1.630220.3.579.2.196 1945 Unknown [id number] 2.16. 840.1.623788.3.579.2. 1945 Unknown [id number] 2.16.8 40.1.161489.3.579.2.1286 -08-194 Unknown [id number] 2.16.8 40.1.516644.3.579.2.1286 -08-1945 Unknown [id number] 2.16.8 40.1.205204.3.579.2.1286 -08-1945 Unknown [id number] 2.16.8 40.1.402403.3.579.2.1286 -08-194 Unknown [id number] 2.16.84 0.1.973293.3.579.2.1259 -08-194 Unknown [id number] 2.16.84 0.1.736973.3.579.2.1259 -08-194 Unknown [id number] 2.16.84 0.1.118441.3.579.2.1259 -08-1945 Unknown [id number] 2.16.84 0.1.928380.3.579.2.1259 -08-1945 Unknown [id number] 2.16.84 0.1.630478.3.579.2.1259 -08-1945 Unknown [id number] 2.16.84 0.1.542418.3.579.2.1259 -08-1945 Unknown [id number] 2.16.84 0.1.713980.3.579.2.1259 -08-1945 Unknown [id number] 2.16.84 0.1.835938.3.579.2.1259 -08-1945 Unknown [id number] 2.16.84 0.1.942719.3.579.2.1259 -08-1945 Unknown [id number] 2.16.84 0.1.881875.3.579.2.1259 -08-1945 Unknown [id number] 2.16.84 0.1.441044.3.579.2.1259 -08-1945 Unknown [id number] 2.16.84 0.1.861303.3.579.2.1259 1945 Unknown [id number] 2.16.84 0.1.461506.3.579.2.1259 1945 Unknown [id number] 2.16.84 0.1.496326.3.579.2.1259 1945 Unknown [id number] 2.16.84 0.1.041527.3.579.2.1259 1945 Unknown [id number] 2.16.84 [id number] 1945 Unknown [id number] 2.16.84 [id number] 1945 Unknown [id number] 2.16.84 [id number] 1945 Unknown [id number] 1945 Unknown [id number] 1945 Unknown [id number] 2.16.840 .[id number] 1945 Unknown [id number] 1945 Unknown [id number] Social History Date Type Detail Facility Start: 01-27-2018 End: 11-29-2023 Tobacco smoking status ARIS Never smoked tobacco [facility] History of tobacco use Passive smoker [facility] Start: 01-27-2018 End: 11-29-2023 Tobacco use and exposure Smokeless tobacco non-user [facility] Start: 11-29-2023 End: 04-04-2024 Alcohol intake Current non-drinker of alcohol (finding) [facility] Start: 11-29-2023 End: 04-04-2024 Alcohol intake [facility] Start: 11-29-2023 End: 04-04-2024 Tobacco use panel [facility] Adolescent depressio n screening assessment 0 [facility] Start: 1945 Sex Assigned At Female [facility] Start: 05-22-2021 Gender identity Identifies as female gender (finding) [facility] Start: 05-22-2021 Sexual orientation Heterosexual (finding) [facility] Start: 12-07-2023 Alcohol intake Current drinker of alcohol (finding) [facility] Start: 05-04-2023 Alcohol Comment caffeine: occasional [facility] Start: 1945 Sex Assigned At Not on file [facility] Medical Equipment Procedure Code Equipment Code Equipment Origin al Text Equipment Identifier Dates Patch Dura 1x1in Drmtrx-[place] + Clgn Rgnrt Membr Strl - [id number] Start: 07-03-2021 Goals Date Patient Goal Desired Activity /State Personal health goal Comment on above: Formatting of this n ote might be different from the original. Evaluation of progress towards goal: safe transition from hospital to home with support of her friends/neighbors Clinical Notes 12-13-2023 to 04-04-2024 Patient InstructionsRiJosette bell MA - 04/04/2024 11:29 AM EDTRJosette wolf MA - 04/04/2024 11:29 AM Mandi Tatum MD - 04/04/2024 10:30 AM EDTPatient Instructions Note Date & Type Note Facility 04-04-2024 Instructions Anson Ennis MD - 04/04/2024 12:35 PM EDT - obtain follow up MRI brain wwo in 6 months - please follow up with your representative government relations (we do not think the etiology of your hearing loss is due to your meningioma) - our team will notify Dr. Bia Cao regarding these findings; we recommend investigating other etiologies of imbalance in Mrs. Ruth documented in this encounter [facility] 04-04-2024 Note HNO ID: [id number] Author: MANDI HOOVER MD Service: ? 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 Her lesion does not arise from any of the cranial nerves and instead seems to be arising from the right posterior petrous ridge. 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 The natural history and treatment options for meningiomas (including observation, radiotherapy, radiosurgery, and surgery) were reviewed in detail. In this case, the tumor is not touching the vestibular cochlear nerve complex and it is small, therefore I believe it to be incidental and unrelated to her symptoms. Given this, I recommend a conservative approach for this tumor. PLAN: - Follow-up in 6 months with a repeat MRI scan ([place] preference) and clinic visit with one of our skull base team advance practice providers ([place] preference). - follow up with representative government relations for hearing loss which is unrelated to this tumor - follow up with Dr. Cao to investigate other etiologies of imbalance. We contacted Dr. Cao via telephone with our recommendations. Anson Ennis MD PGY-3, Neurological Surgery I have reviewed the history AND physical obtained and documented by the resident who scribed on my behalf. I examined the patient and evaluated all available films and pertinent documents. This note accurately reflects work and decisions made by me. Mandi Hoover MD Medical Decision Making: Problems: Moderate: New problem with uncertain prognosis Data: Unique source(s) for external note(s) reviewed: 1 Unique test result(s) reviewed: 1 Independent interpretation of test from other physician/QHCP Risk: Low: Low risk from testing/treatment Medical Decision Making Level: 4 - Moderate The patient is referred by Dr. Cao for neurosurgical evaluation. Final recommendations will be communicated back to the requesting physician by way of the shared medical records, or letters to requesting physician via [place] Mail and were also communicated by telephone. Chief Complaint: Right CPA Tumor History of Present Illness: Patient is accompanied by her granddaughter (her fire truck driver) and great grand daughter). The patient is a very pleasant 78 year old female with PMH HTN, HLD, asthma, BCC of face and hands (~20-30 years ago), hypothyroidism, previous spine surgeries now fused from L3-L5, s/p C2-3, C3-4 radiofrequency ablations presenting with 6 months of difficulty with balance and walking and right ear hearing difficulty for 6 months. An MRI was performed 03/02/2024 with and without contrast and shows a 1.2 cm R SECOND CUTTER contrast-enhancing lesion concerning for either schwannoma or meningioma- no associated mass effect or edema. The patient takes ASA 81 mg daily for cardioprotection per her PCP. The patient has been using a cane for the last 5-6 years. The patient reports that ~6 weeks ago, she walked into her garage door and fell. The patient has not seen an representative government relations or a vestibular therapist. Past Medical History: No past medical history on file. Past Surgical History: No past surgical history on file. Family History: No family history on file. Social History: Social History Tobacco Use Smoking status: Never Smokeless tobacco: Never Substance Use Topics Alcohol use: No Medications: Current Outpatient Medications on File Prior to Visit Medication Sig acetaminophen (TYLENOL) 500 mg tablet Take 500-1,000 mg by mouth three times daily as needed. PROAIR HFA 90 mcg/actuation inhaler as needed. amitriptyline (ELAVIL) 100 mg tablet Take 100 mg by mouth daily at bedtime. atorvastatin (LIPITOR) 40 mg tablet Take 40 mg by mouth once daily. carvedilol (COREG) 25 mg tablet Take 25 mg by mouth twice daily. cholecalciferol (VITAMIN D3) 1,000 unit tab tablet 1,000 Units once daily. diclofenac, EC, (VOLTAREN) 75 mg EC tablet Take 75 mg by mouth twice daily as needed. escitalopram oxalate (LEXAPRO) 20 mg tablet Take 20 mg by mouth once daily. losartan-hydrochlorothiazide (HYZAAR) 100-25 mg per tablet Take 1 tablet by mouth once daily. ezetimibe-simvastatin 10-40 mg (VYTORIN) 10-40 (more content not included)... [facility] 04-04-2024 Nurse Note Additional intake questions: Has the patient had fever, nausea, vomiting, diarrhea, constipation, fatigue for > 1 week? No Does the patient have a decreased appetite? No Does patient want to see a Chronometer Repairer? No (yes to any of above refer patient to schedulers for dietitian appointment) ) Does patient have any new or increased numbness or tingling of extremities? No Is patient interested in fertility information? No Does patient need any prescription refills? No Does patient have an advanced directive in place? Yes, no copy found in [facility] Patient referred to [facility] Electronically Signed By: Josette Sheppard MA [facility] 04-04-2024 Nurse Note Additional intake questions: Has the patient had fever, nausea, vomiting, diarrhea, constipation, fatigue for > 1 week? No Does the patient have a decreased appetite? No Does patient want to see a Chronometer Repairer? No (yes to any of above refer patient to schedulers for dietitian appointment) ) Does patient have any new or increased numbness or tingling of extremities? No Is patient interested in fertility information? No Does patient need any prescription refills? No Does patient have an advanced directive in place? Yes, no copy found in [facility] Patient referred to [facility] Electronically Signed By: Josette Sheppard MA documented in this encounter [facility] 04-04-2024 History of Presen t illness Narrative Images from the original note were not included. SECTION OF SKULL BASE SURGERY MINIMALLY INVASIVE CRANIAL BASE & PITUITARY SURGERY PROGRAM Jessica Car[facility] [place], [facility] CC: Patient Care Team: Bia Cao as PCP ([facility]) Ileana Cortes MD as NI Referring Team (Neurosurgery) ASSESSMENT: In summary, Angela Ruth is a very pleasant 78 year old female with PMH HTN, HLD, asthma, BCC of face and hands (~20-30 years ago), hypothyroidism, previous spine surgeries now fused from L3-L5, s/p C2-3, C3-4 radiofrequency ablations presenting with 6 months of difficulty with balance and walking and right ear hearing difficulty for 6 months. Her lesion does not arise from any of the cranial nerves and instead seems to be arising from the right posterior petrous ridge. 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 The natural history and treatment options for meningiomas (including observation, radiotherapy, radiosurgery, and surgery) were reviewed in detail. In this case, the tumor is not touching the vestibular cochlear nerve complex and it is small, therefore I believe it to be incidental and unrelated to her symptoms. Given this, I recommend a conservative approach for this tumor. PLAN: - Follow-up in 6 months with a repeat MRI scan ([place] [facility] preference) and clinic visit with one of our skull base team advance practice providers ([place] [facility] preference). - follow up with representative government relations for hearing loss which is unrelated to this tumor - follow up with Dr. Cao to investigate other etiologies of imbalance. We contacted Dr. Cao via telephone with our recommendations. Anson Ennis MD PGY-3, Neurological Surgery I have reviewed the history & physical obtained and documented by the resident who scribed on my behalf. I examined the patient and evaluated all available films and pertinent documents. This note accurately reflects work and decisions made by me. Mandi Hoover MD Medical Decision Making: Problems: Moderate: New problem with uncertain prognosis Data: Unique source(s) for external note(s) reviewed: 1 Unique test result(s) reviewed: 1 Independent interpretation of test from other physician/QHCP Risk: Low: Low risk from testing/treatment Medical Decision Making Level: 4 - Moderate The patient is referred by Dr. Cao for neurosurgical evaluation. Final recommendations will be communicated back to the requesting physician by way of the shared medical records, or letters to requesting physician via [place] Mail and were also communicated by telephone. Chief Complaint: Right CPA Tumor History of Present Illness: Patient is accompanied by her granddaughter (her fire truck driver) and great grand daughter). The patient is a very pleasant 78 year old female with PMH HTN, HLD, asthma, BCC of face and hands (~20-30 years ago), hypothyroidism, previous spine surgeries now fused from L3-L5, s/p C2-3, C3-4 radiofrequency ablations presenting with 6 months of difficulty with balance and walking and right ear hearing difficulty for 6 months. An MRI was performed 03/02/2024 with and without contrast and shows a 1.2 cm R SECOND CUTTER contrast-enhancing lesion concerning for either schwannoma or meningioma- no associated mass effect or edema. The patient takes ASA 81 mg daily for cardioprotection per her PCP. The patient has been using a cane for the last 5-6 years. The patient reports that ~6 weeks ago, she walked into her garage door and fell. The patient has not seen an representative government relations or a vestibular therapist. Past Medical History: No past medical history on file. Past Surgical History: No past surgical history on file. Family History: No family history on file. Social History: Social History Tobacco Use Smoking status: Never Smokeless tobacco: Never Substance Use Topics Alcohol use: No Medications: Current Outpatient Medications on File Prior to Visit Medication Sig acetaminophen (TYLENOL) 500 mg tablet Take 500-1,000 mg by mouth three times daily as needed. PROAIR HFA 90 mcg/actuation inhaler as needed. amitriptyline (ELAVIL) 100 mg tablet Take 100 mg by mouth daily at bedtime. atorvastatin (LIPITOR) 40 mg tablet Take 40 mg by mouth once daily. carvedilol (COREG) 25 mg tablet Take 25 mg by mouth twice daily. cholecalciferol (VITAMIN D3) 1,000 unit tab tablet 1,000 Units once daily. diclofenac, EC, (VOLTAREN) 75 mg EC tablet Take 75 mg by mouth twice daily as needed. escitalopram oxalate (LEXAPRO) 20 mg tablet Take 20 mg by mouth once daily. losartan-hydrochlorothiazide (HYZAAR) 100-25 mg per tablet Take 1 tablet by mouth once daily. ezetimibe-simvastatin 10-40 mg (VYTORIN) 10-40 mg per tablet Take by mouth. esomeprazole (NEXIUM) 40 mg capsule Take 40 mg by mouth. Fenofibrate (LOFIBRA) 160 mg tablet Take 160 mg by mouth once daily. fexofenadine (RALPH) 180 mg tablet Take 180 mg by mouth once daily. levothyroxine (SYNTHROID) 150 mcg tablet 1 tablet once daily. meclizine (ANTIVERT) 25 mg tab Take 25 mg by mouth three times daily as needed. omeprazole (PRILOSEC) 20 mg capsule 20 mg once daily. acetaminophen-dichloralphenazone -isometheptene (MIDRIN) 65-100-325 mg per capsule 1 capsule four times daily as needed. cyclobenzaprine (FLEXERIL) 5 mg tablet Take 10 mg by mouth three times daily as needed. verapamil SR (CALAN SR, ISOPTIN SR) 120 mg CR tablet 1 tablet three times daily. zafirlukast (ACCOLATE) 20 mg tablet 1 tablet twice daily. metoclopramide HCl (REGLAN) 10 mg tablet Take 10 mg by mouth every 6 hours as needed. magnesium gluconate (MAGONATE) 27 mg (500 mg) tab Take 500 mg by mouth once daily. multivitamin tablet Take 1 tablet by mouth once daily. calcium carbonate-vitamin D3 600 mg(1,500mg) -800 unit tab Take 1 tablet by mouth once daily. topiramate (TOPAMAX) 100 mg tablet 300 mg once daily. 100 mg in the A.M and 200 at bedtime No current facility-administered medications on file prior to visit. Allergies: ALLERGIES Allergen Reactions Lincosamides Anaphylaxis Influenza Virus Vac* Swelling Adhesive Other: See Comments States causes blisters/even paper tape Amoxicillin-Pot Cla* Rash Egg White Swelling Says about 1963? and only one arm affected. No rash, hives, or trouble breathing Aspartame Other: See Comments migraines Clavulanic Acid Rash Clemizole Rash Lincomycin Rash Oxaprozin Rash Penicillins Rash Physical Examination: BP 105/65 Pulse 80 Temp 36.5 C (97.7 F) (Temporal) Resp 18 Ht 160 cm (5' 3 ) Wt 69.6 kg (153 lb 7 oz) SpO2 96% BMI 27.18 kg/m Well developed, well nourished Awake, alert, conversant Speech: Normal fluency and comprehension 2nd cranial nerve: Full visual montgomery 3rd, 4th, and 6th cranial nerves: Pupils equally round and reactive to light, extraocular movements intact without nystagmus or subjective diplopia 5th cranial nerve: V1-3 intact to light touch bilaterally 7th cranial nerve: Facial muscles full and symmetric bilaterally 8th cranial nerve: hearing to rubbing of fingers intact on L side, only 40% of normal function on right side 9th cranial nerve: gag reflex test deferred 10th cranial nerve: Palate elevates symmetrically and uvula in the midline 11th cranial nerve: shoulder shrug 5/5 bilaterally 12th cranial nerve: tongue protrudes in the midline Motors: Normal muscle tone, 5/5 strength throughout without pronator drift Sensation: Intact to light touch in all extremities Coordination: no dysmetria on fingers-nose testing bilaterally Gait: able to stand and ambulate independently with normal gait Cardiovascular: regular rate and rhythm, normal S1/2 sounds, no carotid bruits Lungs: clear to auscultation bilaterally Extremities: no peripheral edema Data Review: Imaging: An MRI was performed 03/02/2024 with and without contrast and shows a 1.2 cm R SECOND CUTTER contrast-enhancing lesion extra-axial mass arising from the right posterior petrous ridge with no significant mass effect and not abutting the right vestibular cochlear complex. documented in this encounter [facility] 03-28-2024 Telephone encounter Note Called patient to schedule an appointment. No ans/left message to call the office back. Appointment scheduled: 04/04/2024 10:30 AM (Arrive by 10:15 AM) Mandi Hoover MD [facility] RAMAN Alonso [facility] 03-28-2024 Miscellaneous Notes Called patient to schedule an appointment. No ans/left message to call the office back. Appointment scheduled: 04/04/2024 10:30 AM (Arrive by 10:15 AM) Mandi Hoover MD [facility] RAMAN Alonso Time Frame: First available Provider: Kiko Landrum Soni Referring: Ileana Cortes MD Images to be requested from [facility] Dx: Right CPA mass Patient: Angela Ruth Address: Angela Ruth [id number] [place] [address] Per Triage: HISTORY OF PRESENT ILLNESS Angela Ruth is a 78 y.o. female. She has had loss of hearing in her right ear. Also had some headaches. An MRI was performed 03/02/2024 with and without contrast and shows a 1.5 cm lesion in the CPA angle on the right side. She has been having increasing balance issues. No recent falls. No issues on the left side. Patient expectations: Second opinion Tumor Specifics: Location: brain Previous Evaluations: MRI w/wo contrast BRAIN 03/02/24 Impression 1.2 cm enhancing mass at the right cerebellopontine angle with leading differential including vestibular schwannoma and meningioma. ELECTRONICALLY SIGNED BY: Ryan Selby MD Narrative EXAMINATION: MR BRAIN W AND WO CONTRAST (ROUTINE) HISTORY: Abnormal CT. TECHNIQUE: Routine brain MRI protocol without and with contrast including diffusion images. CONTRAST: 14 mL gadolinium (Prohance) injection COMPARISON: None available. RESULT: Acute Change: There is no evidence of restricted diffusion to suggest an acute infarct. Hemorrhage: No evidence of prior parenchymal hemorrhage. Mass Lesion/ Mass Effect: 1.2 cm enhancing mass at the right cerebellopontine angle. No extra-axial fluid collection or abnormal enhancement elsewhere. No significant mass effect. Chronic Change: Scattered patchy areas of increased T2 and FLAIR signal are present in the supratentorial white matter which is a nonspecific finding but likely represents mild chronic microvascular ischemia. Parenchyma: There is mild generalized parenchymal volume loss. Ventricles: Normal caliber and morphology. Skull Base: Hypothalamic and pituitary region are grossly normal. Craniocervical junction is normal. No significant marrow replacement process. Vasculature: Major intracranial arterial structures, and dural venous sinuses show typical flow void, suggesting patency. Other: Mild because of thickening of the pineal sinuses especially the ethmoid air cells and right maxillary sinus. Mastoid air cells are clear. The orbits are unremarkable. The extracranial soft tissues are unremarkable. Vanesa Morgan APRN.BEHAVIOR THERAPIST March 28, 2024 Referral source: Ileana Cortes MD ([facility]) Reason for visit: consideration of gamma knife for 1.2 cm enhancing lesion at right cerebelloponitine angle with leading differential including vestibular schwannoma and meningioma External records: Sent with referral and pulled from [facility] Triage: Required, forwarded to [facility] by telephone encounter sent to [facility] Scheduling Triage. Financial clearance: Not required to schedule documented in this encounter [facility] 03-28-2024 Telephone encounter Note Time Frame: First available Provider: Kiko Landrum Soni Referring: Ileana Cortes MD Images to be requested from [facility] Dx: Right CPA mass Patient: Angela Ruth Address: Angela Ruth [id number] [place] [address] [facility] [address] Per Triage: HISTORY OF PRESENT ILLNESS Angela Ruth is a 78 y.o. female. She has had loss of hearing in her right ear. Also had some headaches. An MRI was performed 03/02/2024 with and without contrast and shows a 1.5 cm lesion in the CPA angle on the right side. She has been having increasing balance issues. No recent falls. No issues on the left side. Patient expectations: Second opinion Tumor Specifics: Location: brain Previous Evaluations: MRI w/wo contrast BRAIN 03/02/24 Impression 1.2 cm enhancing mass at the right cerebellopontine angle with leading differential including vestibular schwannoma and meningioma. ELECTRONICALLY SIGNED BY: Ryan Selby MD Narrative EXAMINATION: MR BRAIN W AND WO CONTRAST (ROUTINE) HISTORY: Abnormal CT. TECHNIQUE: Routine brain MRI protocol without and with contrast including diffusion images. CONTRAST: 14 mL gadolinium (Prohance) injection COMPARISON: None available. RESULT: Acute Change: There is no evidence of restricted diffusion to suggest an acute infarct. Hemorrhage: No evidence of prior parenchymal hemorrhage. Mass Lesion/ Mass Effect: 1.2 cm enhancing mass at the right cerebellopontine angle. No extra-axial fluid collection or abnormal enhancement elsewhere. No significant mass effect. Chronic Change: Scattered patchy areas of increased T2 and FLAIR signal are present in the supratentorial white matter which is a nonspecific finding but likely represents mild chronic microvascular ischemia. Parenchyma: There is mild generalized parenchymal volume loss. Ventricles: Normal caliber and morphology. Skull Base: Hypothalamic and pituitary region are grossly normal. Craniocervical junction is normal. No significant marrow replacement process. Vasculature: Major intracranial arterial structures, and dural venous sinuses show typical flow void, suggesting patency. Other: Mild because of thickening of the pineal sinuses especially the ethmoid air cells and right maxillary sinus. Mastoid air cells are clear. The orbits are unremarkable. The extracranial soft tissues are unremarkable. Vanesa Morgan APRN.BEHAVIOR THERAPIST March 28, 2024 [facility] 03-24-2024 Telephone encounter Note Referral source: Ileana Cortes MD ([facility]) Reason for visit: consideration of gamma knife for 1.2 cm enhancing lesion at right cerebelloponitine angle with leading differential including vestibular schwannoma and meningioma External records: Sent with referral and pulled from [facility] Triage: Required, forwarded to [facility] by telephone encounter sent to [facility] Scheduling Triage. Financial clearance: Not required to schedule [facility] 02-24-2024 History of Presen t illness Narrative Images from the original note were not included. Name: Angela Ruth : 1945 Gender: female PCP: Bia Cao MD Age: 78 y.o. PCP Encounter Date: 02/24/24 CHIEF COMPLAINT: Subjective Angela Ruth is an 78 y.o. female Who is followed for hypertension. Unfortunately, patient has hypotensive episodes as well and we have had difficulty managing her medications in that regard. Patient presents today stating that she is having high blood pressure for the most part. However, she has also had some hypotensive episodes with systolics in the 70s and 80s. Presently she is taking Coreg b.I.d. and she is taking hydralazine twice a day once in the morning once at night. My last note reflects that we discontinue nighttime dose but she has been taking it. Patient reports she is having her hypotensive mainly at night but then in the morning when she gets up her blood pressure is extremely high once again. ROS As above PAST MED/SURG HISTORY: Past Medical History: Diagnosis Date Age related osteoporosis Allergic 1951 Allergic rhinitis 1951 Arthritis Asthma Atrophy of vocal cord Basal cell carcinoma of skin Benign familial tremor BPPV (benign paroxysmal positional vertigo) Breast disorder 4 biopsies Bronchitis 01/01/2017 Cancer ([facility]) Basal cell Carpal tunnel syndrome Cataract Chronic constipation Chronic pain disorder Dental disease Crowns Depression Diastolic dysfunction Essential hypertension Fibromyalgia GERD (gastroesophageal reflux disease) Sky's thyroiditis HL (hearing loss) Hyperlipidemia Hypertension Hypothyroidism IBS (irritable bowel syndrome) [...] Performed by Lalit Leach MD at [facility] ENDOSCOPY COSMETIC SURGERY 1984 DISCECTOMY 1989 Partial L4-5 EGD 2001 EYE SURGERY 2015 FOOT SURGERY 2009 Reattachment of tendon left foot with bone graft HIP SURGERY 2003 Excision of bursa left hip HYSTERECTOMY 1984 INJECTION BLOCK EPIDURAL STEROID LUMBAR/SACRAL Left L 5,1 NR Left 12/20/2020 Performed by Shubham Clifton MD at [facility] INJE[facility] BLOCK NERVE MEDIAL BRANCH right C 4/5,5/6 Right 05/22/2022 Performed by Shubham Clifton MD at [facility] IN[facility] BLOCK NERVE MEDIAL BRANCH right C 4/5,5/6 Right 04/17/2022 Performed by Shubham Clifton MD at [facility] IN[facility] CAUDAL EPIDURAL WITH CATHETER, STEROID N/A 03/07/2018 Performed by Shubham Clifton MD at [facility] LARGE JOINT BURSA: bilat hip Bilateral 12/10/2017 Performed by Shubham Clifton MD at [facility] INJECTION MEDIAL BRANCH NERVE BLOCK Bilateral L 4/5, 5/1 Bilateral 06/28/2017 Performed by Shubham Clifton MD at [facility] INJECTION MEDIAL BRANCH NERVE BLOCK Right L 2/3, 3/4 Right 12/08/2019 Performed by Shubham Clifton MD at [facility] MEDIAL BRANCH NERVE BLOCK RIGHT L23 34 Right 01/19/2020 Performed by Shubham Clifton MD at [facility] INJECTION SI JOINT Bilateral 04/09/2017 Performed by Shubham Clifton MD at [facility] INJECTION SI JOINT Bilateral SI Joint Bilateral 05/31/2020 Performed by Shubham Clifton MD at [facility] INJECTION SI JOINT Left SI JOint Left 01/06/2019 Performed by Shubham Clifton MD at [facility] INJECTION SI JOINT Right SI Joint Right 06/09/2019 Performed by Shubham Clifton MD at [facility] SPINE TRANSFORAMINAL Left L 4, 5 NR Left 09/24/2017 Performed by Shubham Clifton MD at [facility] INJECTION SPINE TRANSFORAMINAL Left L 5,1 Nroot Left 01/08/2023 Performed by Shubham Clifton MD at [facility] INJECTION SPINE TRANSFORAMINAL Right L 5,1 Nroot Right 11/27/2022 Performed by Shubham Clifton MD at [facility] STEROID EPI 1 WITH SEDATION Left 5,1 NR Left 05/08/2019 Performed by Shubham Clifton MD at [facility] KNEE ARTHROSCOPY 2013 KNEE SURGERY 2010 2013 Arthroscopy bilateral/repair meniscus right X2, left X1 LAMINECTOMY LUMBAR FORAMENOTOMY MULTI LEVEL L1-2 RIGHT/L2-3 BILATERAL/LUMBAR DRAIN INSERTION N/A 07/03/2021 Performed by Ileana Cortes MD at [facility] LAPAROTOMY OOPHERECTOMY Bilateral 1984 LUMBAR DISCECTOMY LUMBAR FUSION 2010 L3-5 LUMBAR LAMINECTOMY MICRO LUMBAR DISCECTOMY L5-S1/ FORAMINOTOMY L5-S1 Left 01/14/2017 Performed by Ileana Cortes MD at [facility] OOPHORECTOMY 1982 OTHER SURGICAL HISTORY Knee Arthroscopy With Medial Meniscus Repair OTHER SURGICAL HISTORY Spinal Diskectomy RADIO FREQUENCY ABLATION Left L 4/5, 5/1 Left 12/02/2018 Performed by Shubham Clifton MD at [facility] RADIO FREQUENCY ABLATION Left L 4/5, 5/1 Left 07/30/2017 Performed by Shubham Clifton MD at [facility] RADIO FREQUENCY ABLATION Left SI joint Left 03/31/2019 Performed by Shubham Clifton MD at [facility] RADIO FREQUENCY ABLATION Right L2/3, 3/4 Right 03/29/2020 Performed by Shubham Clifton MD at [facility] RADIOFREQUENCY ABLATION SPINAL Left Si joint Left 05/07/2017 Performed by Shubham Clifton MD at [facility] RADIOFREQUENCY ABLATION SPINAL Right C 4/5,5/6 Right 06/26/2022 Performed by Shubham Clifton MD at [facility] RADIOFREQUENCY ABLATION SPINAL RIGHT SI JOINT Right 05/21/2017 Performed by Shubham Clifton MD at [facility] RELEASE CARPAL TUNNEL Left 11/04/2021 Performed by Ileana Cortes MD at [facility] SHOULDER SURGERY 2011 Right rotator cuff SKIN BIOPSY 2000 SPINE SURGERY 1989,2006,2017, 2020 STEROID INJECTION KNEE Right 04/2017 SYNVISC KNEE INJECTION TONSILLECTOMY AND ADENOIDECTOMY TRIGGER FINGER RELEASE Right x2 TRIGGER FINGER RELEASE Right 04/2018 2 fingers WRIST SURGERY Right [place] Social History Socioeconomic History Marital status: Spouse [...] on file Housing Instability: Not on file FAMILY HISTORY: Family History Problem Relation Age of Onset [...] Disorder Neg Hx Clotting disorder Neg Hx CURRENT MEDICATIONS: Current Outpatient Medications: acetaminophen (TYLENOL EXTRA STRENGTH) 500 mg tablet, Take 2 tablets (1,000 mg total) by mouth every 6 (six) hours as needed for pain., Disp: , Rfl: albuterol (PROVENTIL HFA;VENTOLIN HFA) 90 mcg/actuation inhaler, Inhale 2 puffs every 4 (four) hours as needed for wheezing or shortness of breath. PRO AIR, Disp: , Rfl: alendronate (FOSAMAX) 70 mg tablet, Take 1 tablet (70 mg total) by mouth every 7 days., Disp: , Rfl: amitriptyline (ELAVIL) 50 mg tablet, Take 1 tablet (50 mg total) by mouth nightly., Disp: 90 tablet, Rfl: 3 ascorbic acid (VITAMIN C) 500 mg tablet, Take 2 tablets (1,000 mg total) by mouth in the morning., Disp: , Rfl: aspirin 81 mg, Take 1 tablet (81 mg total) by mouth in the morning., Disp: , Rfl: jndfdpg-avdaaongtkjhv-wrmkiaof (EXCEDRIN MIGRAINE) 250-250-65 mg per tablet, Take 1 tablet by mouth every 6 (six) hours as needed for headaches., Disp: , Rfl: atorvastatin (LIPITOR) 40 mg tablet, Take 1 tablet (40 mg total) by mouth in the morning., Disp: , Rfl: buprenorphine (BUTRANS) 7.5 mcg/hour patch weekly, Place 1 patch on the skin once a week., Disp: , Rfl: eelclprzah-vukofkhxhlmtf-lukk (ESGIC) 50-325-40 mg per tablet, Take 1 tablet by mouth every 4 (four) hours as needed for headaches. No more than 2 tablets daily, and no more than 2 days a week., Disp: 20 tablet, Rfl: 2 calcium carbonate-vitamin D3 600 mg(1,500mg) -800 units tablet, Take 600 mg by mouth nightly Indications: prevention of vitamin D deficiency., Disp: , Rfl: carvediloL (COREG) 25 mg tablet, Take 1 tablet (25 mg total) by mouth in the morning and 1 tablet (25 mg total) before bedtime., Disp: 180 tablet, Rfl: 3 cholecalciferol, vitamin D3, (VITAMIN D3) 1,000 units tablet, 1 tablet (1,000 Units total) before breakfast Indications: low vitamin D levels., Disp: , Rfl: cyanocobalamin (VITAMIN B12) 1,000 mcg tablet, sublingual, Place 1 tablet (1,000 mcg total) under the tongue in the morning., Disp: 30 tablet, Rfl: 11 escitalopram (LEXAPRO) 20 mg tablet, Take 1 tablet (20 mg total) by mouth daily with dinner Indications: major depressive disorder., Disp: , Rfl: famotidine (PEPCID) 20 mg tablet, Take 1 tablet (20 mg total) by mouth nightly., Disp: 90 tablet, Rfl: 3 fenofibrate (LOFIBRA) 160 mg tablet, Take 1 tablet (160 mg total) by mouth nightly., Disp: , Rfl: ferrous sulfate 325 (65 FE) mg tablet, Take 1 tablet (325 mg total) by mouth in the morning and 1 tablet (325 mg total) in the evening. Take with meals., Disp: 60 tablet, Rfl: 2 fexofenadine (RALPH) 180 mg tablet, Take 1 tablet (180 mg total) by mouth daily with breakfast., Disp: , Rfl: hydrALAZINE (APRESOLINE) 100 mg tablet, Take one twice a day may take an additional 50mg daily if Systolic BP is greater than 170, Disp: 60 tablet, Rfl: 11 L.acidoph/B.animalis/B.longum (FLORAJEN DIGESTION ORAL), Take 1 tablet by mouth in the morning., Disp: , Rfl: levothyroxine (SYNTHROID, LEVOTHROID) 150 MCG tablet, Take 1 tablet (150 mcg total) by mouth before breakfast Indications: a condition with low thyroid hormone levels., Disp: 78 tablet, Rfl: 4 lisinopril-hydroCHLOROthiazide (ZESTORETIC) 20-12.5 mg per tablet, Take 1 tablet by mouth in the morning., Disp: 90 tablet, Rfl: 3 magnesium 250 mg tablet, Take 2 tablets (500 mg total) by mouth in the morning. Indications: for migraine prevention. At supper time., Disp: , Rfl: omeprazole (PriLOSEC) 40 mg capsule, Take 1 capsule (40 mg total) by mouth in the morning., Disp: 180 capsule, Rfl: 3 oxybutynin XL (DITROPAN-XL) 10 mg 24 hr tablet, Take 1 tablet (10 mg total) by mouth daily with breakfast., Disp: , Rfl: therapeutic multivitamin (THERAGRAN) tablet, Take 1 tablet by mouth daily with dinner., Disp: , Rfl: tiZANidine (ZANAFLEX) 4 mg tablet, Take 0.25-0.5 tablets (1-2 mg total) by mouth 2 (two) times daily at 0800 and 1500 AND 1-2 tablets (4-8 mg total) nightly., Disp: 270 tablet, Rfl: 3 UBRELVY 100 mg tablet, Take 100 mg by mouth once as needed (migraine) for up to 1 dose., Disp: 16 tablet, Rfl: 12 zafirlukast (ACCOLATE) 20 mg tablet, Take 1 tablet (20 mg total) by mouth in the morning and 1 tablet (20 mg total) before bedtime., Disp: , Rfl: UBRELVY 100 mg tablet, Take 100 mg by mouth once as needed (migraine) for up to 1 dose. (Patient not taking: Reported on 02/24/2024), Disp: 10 tablet, Rfl: 0 ALLERGIES: Allergies as of 02/24/2024 - Reviewed 02/24/2024 Allergen Reaction Noted Indocin [indomethacin] Hypotension 05/02/2021 Lincocin [lincomycin] Anaphylaxis 11/04/2016 Lincosamides Anaphylaxis 02/12/2017 Adhesive 11/04/2016 Eggshell membrane 11/04/2016 Influenza virus vaccines Swelling 02/12/2017 Sulfa (sulfonamide antibiotics) Hives 11/11/2022 Other Other (See Comments) 12/11/2021 Poultry 03/02/2023 Sulfamethoxazole-trimethoprim Hives 10/22/2023 Aspartame Other (See Comments) 02/12/2017 Augmentin [amoxicillin-pot clavulanate] Rash 11/04/2016 Clavulanic acid Rash 02/12/2017 Clemizole Rash 02/12/2017 Daypro [oxaprozin] Rash 11/04/2016 Penicillins Rash 11/04/2016 VITALS: Vitals: 02/24/24 1202 BP: 147/76 Pulse: 78 Resp: 16 SpO2: 94% Admit Weight: Weight: 69.7 kg (153 lb 9.6 oz) Wt Readings from Last 3 Encounters: 02/24/24 69.7 kg (153 lb 9.6 oz) 02/11/24 70.3 kg (155 lb) 01/07/24 70.8 kg (156 lb) Body mass index is 27.21 kg/m . PHYSICAL EXAM: Physical Exam General: alert, active, in no acute distress. A and O x 3 Neck: Supple,No JVP or HJR Lungs: Clear to A and P Heart: Normal PMI. regular rate and rhythm, normal S1, S2, no murmurs or gallops. Neuro: normal without focal findings Back/Spine: back straight, no defects Musculoskeletal: moves all extremities equally, full range of motion Skin: skin color, texture and turgor are normal; no bruising, rashes or lesions noted Vascular: no bruits, distal pulses 2+ Extremities: no c/c/e LAB REVIEW: CBC: Lab Results Component Value Date WBC 5.2 02/11/2024 HGB 13.5 02/11/2024 HCT 39.6 02/11/2024 MCV 85 02/11/2024 PLT 176 02/11/2024 PLT 194 01/11/2024 PLT 175 03/03/2023 BMP: Lab Results Component Value Date CALCIUM 9.4 02/11/2024 K 4.2 02/11/2024 CO2 25 02/11/2024 CL 104 02/11/2024 BUN 22 02/11/2024 CREATININE 1.01 (H) 02/11/2024 CREATININE 1.28 (H) 2023 CREATININE 0.77 03/03/2023 PT/INR: Lab Results Component Value Date INR 1.0 10/28/2021 INR 1.0 06/24/2021 INR 1.0 01/04/2018 PROTIME 11.4 10/28/2021 PROTIME 11.7 06/24/2021 PROTIME 11.1 01/04/2018 APTT: Lab Results Component Value Date PTT 31 10/28/2021 PTT 33 06/24/2021 PTT 29 01/04/2018 MAG: Lab Results Component Value Date MG 2.0 03/03/2023 MG 2.0 03/02/2023 MG 1.9 06/15/2019 D DIMER:No results found for: DDIMER TROPONIN T No results found for: TROPI ProBNP: BNP Date Value Ref Range Status 03/02/2023 7 <100.0 pg/mL Final LIPIDS: Lab Results Component Value Date CHOL 163 08/04/2023 CHOL 136 (L) 04/10/2021 CHOL 167 01/29/2021 Lab Results Component Value Date HDL 39 (L) 08/04/2023 HDL 44 04/10/2021 HDL 46 01/29/2021 Lab Results Component Value Date LDLCALC 55 08/04/2023 LDLCALC 53 04/10/2021 LDLCALC 66 01/29/2021 Lab Results Component Value Date TRIG 345 (H) 08/04/2023 TRIG 197 (H) 04/10/2021 TRIG 273 (H) 01/29/2021 ASSESSMENT/PLAN/DISCUSSION 1. Essential hypertension 2. LVH (left ventricular hypertrophy) 3. Mixed hyperlipidemia 4. Hypotension due to drugs Patient should take her Coreg just before she falls asleep at 1 or 2:00 a.m.. This may help with her morning blood pressure. Hold hydralazine at night for now and monitor pressure. If it is elevated will have put her back on it. We will try to avoid hypotension analog blood pressure to be a little on the high side if we need to be. Await her workup for possible breast CA and further recommendations after that workup Orders Placed or Reconciled This Encounter Medications alendronate (FOSAMAX) 70 mg tablet Sig: Take 1 tablet (70 mg total) by mouth every 7 days. Medications Discontinued During This Encounter Medication Reason alendronate (FOSAMAX) 35 mg tablet Dose adjustment pediatric jhnlrhat-qiap-rui (flintstones complete) tablet,chewable Duplicate Listing Total time spent was 30 minutes which did not include teyt-nr-wucr contact with the patient: Preparing to see the patient (e.g., review of tests) Obtaining and/or reviewing separately obtained history Referring and communicating with other health hospice home care coordinator (not separately reported) Documenting clinical information in the electronic or other health record Independently interpreting results (not separately reported) and communicating results to the patient/family/caregiver The note was completed using EMR. Every effort was made to ensure accuracy; however, inadvertent computerized patient care provider errors may be present. CARDIOVASCULAR STUDIES: EKG: No results found. ECHO: No results found. Stress Test: No results found. Cath: No results found. Device: Other: RYAN DALLAS MD [facility] Miscellaneous Notes Patient called and stated [...] Modules accepted: Orders documented in this encounter [facility] 02-09-2024 Note Addended by: Anna HAWKINS on: 02/10/2024 12:55 PM Modules accepted: Orders [facility] 02-09-2024 Telephone encounter Note Patient called and stated her bp has been elevated. She c/o Headache. 184/92, 224/95 217/93 she took an extra 50mg hydralazine as you have directed PRN and bp 146/78. Please advise going forward. [facility] 02-09-2024 Telephone encounter Note Increase hydralazine to 100 mg twice a day [facility] 02-09-2024 Telephone encounter Note I left patient a voicemail to call me back to verify the dose she is taking now of hydralazine. [facility] 02-09-2024 Telephone encounter Note I spoke to patient and she stated she is taking hydralazine 100mg daily. She is reluctant to try BID as it previously caused hypotension. Patient will try and then keep a bp log. [facility] 01-07-2024 History of Presen t illness Narrative [...] (migraines) Inderal (tremors) Gabapentin 200 mg nightly [place] PRN Occipital nerve blocks (last 03/2021) Tizanidine [...] Breast disorder 4 biopsies Bronchitis 01/01/2017 Cancer ([facility] Basal cell Carpal tunnel syndrome [...] Performed by Lalit Leach MD at [facility] ENDOSCOPY COSMETIC SURGERY 1985 DISCECTOMY 1989 Partial L4-5 EGD 2001 EYE SURGERY 2014 FOOT SURGERY 2009 Reattachment of tendon left foot with bone graft HIP SURGERY 2003 Excision of bursa left hip HYSTERECTOMY 1983 INJECTION BLOCK EPIDURAL STEROID LUMBAR/SACRAL Left L 5,1 NR Left 12/20/2020 Performed by Shubham Clifton MD at [facility] IN[facility] BLOCK NERVE MEDIAL BRANCH right C 4/5,5/6 Right 05/22/2022 Performed by Shubham Clifton MD at [facility] IN[facility] BLOCK NERVE MEDIAL BRANCH right C 4/5,5/6 Right 04/17/2022 Performed by Shubham Clifton MD at [facility] INJECTION CAUDAL EPIDURAL WITH CATHETER, STEROID N/A 03/07/2018 Performed by Shubham Clifton MD at [facility] INJECTION LARGE JOINT BURSA: bilat hip Bilateral 12/10/2017 Performed by Shubham Clifton MD at [facility] IN[facility] MEDIAL BRANCH NERVE BLOCK Bilateral L 4/5, 5/1 Bilateral 06/28/2017 Performed by Shubham Clifton MD at [facility] INJECTION MEDIAL BRANCH NERVE BLOCK Right L 2/3, 3/4 Right 12/08/2019 Performed by Shubham Clifton MD at [facility] IN[facility] MEDIAL BRANCH NERVE BLOCK RIGHT L23 34 Right 01/19/2020 Performed by Shubham Clifton MD at [facility] IN[facility] SI JOINT Bilateral 04/09/2017 Performed by Shubham Clifton MD at [facility] IN[facility] SI JOINT Bilateral SI Joint Bilateral 05/31/2020 Performed by Shubham Clifton MD at [facility] IN[facility] SI JOINT Left SI JOint Left 01/06/2019 Performed by Shubham Clifton MD at [facility] SI JOINT Right SI Joint Right 06/09/2019 Performed by Shubham Clifton MD at [facility] SPINE TRANSFORAMINAL Left L 4, 5 NR Left 09/24/2017 Performed by Shubham Clifton MD at [facility] SPINE TRANSFORAMINAL Left L 5,1 Nroot Left 01/08/2023 Performed by Shubham Clifton MD at [facility] INJECTION SPINE TRANSFORAMINAL Right L 5,1 Nroot Right 11/27/2022 Performed by Shubham Clifton MD at [facility] INJECTION STEROID EPI 1 WITH SEDATION Left 5,1 NR Left 05/08/2019 Performed by Shubham Clifton MD at [facility] KNEE ARTHROSCOPY 2010, 2013 KNEE SURGERY 2010 2013 Arthroscopy bilateral/repair meniscus right X2, left X1 LAMINECTOMY LUMBAR FORAMENOTOMY MULTI LEVEL L1-2 RIGHT/L2-3 BILATERAL/LUMBAR DRAIN INSERTION N/A 07/03/2021 Performed by Ileana Cortes MD at [facility] LAPAROTOMY OOPHERECTOMY Bilateral 1983 LUMBAR DISCECTOMY LUMBAR FUSION 2009 L3-5 LUMBAR LAMINECTOMY MICRO LUMBAR DISCECTOMY L5-S1/ FORAMINOTOMY L5-S1 Left 01/14/2017 Performed by Ileana Cortes MD at [facility] OOPHORECTOMY 1983 OTHER SURGICAL HISTORY Knee Arthroscopy With Medial Meniscus Repair OTHER SURGICAL HISTORY Spinal Diskectomy RADIO FREQUENCY ABLATION Left L 4/5, 5/1 Left 12/02/2018 Performed by Shubham Clifton MD at [facility] RADIO FREQUENCY ABLATION Left L 4/5, 5/1 Left 07/30/2017 Performed by Shubham Clifton MD at [facility] RADIO FREQUENCY ABLATION Left SI joint Left 03/31/2019 Performed by Shubham Clifton MD at [facility] RADIO FREQUENCY ABLATION Right L2/3, 3/4 Right 03/29/2020 Performed by Shubham Clifton MD at [facility] RADIOFREQUENCY ABLATION SPINAL Left Si joint Left 05/07/2017 Performed by Shubham Clifton MD at [facility] RADIOFREQUENCY ABLATION SPINAL Right C 4/5,5/6 Right 06/26/2022 Performed by Shubham Clifton MD at [facility] RADIOFREQUENCY ABLATION SPINAL RIGHT SI JOINT Right 05/21/2017 Performed by Shubham Clifton MD at [facility] RELEASE CARPAL TUNNEL Left 11/04/2021 Performed by Ileana Cortes MD at [facility] SHOULDER SURGERY 2011 Right rotator cuff SKIN [...] mg total) by mouth in the morning. dylzdph-cfwqbyddapbsm-drfcpiap (EXCEDRIN MIGRAINE) 250-250-65 mg per tablet Take 1 tablet by mouth every 6 (six) hours as needed for headaches. atorvastatin (LIPITOR) 40 mg tablet Take 1 tablet (40 mg total) by mouth in the morning. buprenorphine (BUTRANS) 7.5 mcg/hour patch weekly Place 1 patch on the skin once a week. qrkaqnodar-qtnxqfzucpanj-kecp (ESGIC) 50-325-40 mg per tablet Take 1 [...] prior to visit. OARRS was reviewed by Yoanna Dorsey APRN-MAHENDRA. Objective: BP 124/78 (BP Site: Right Arm, [...] procedures Referring and communicating with other health hospice home care coordinator (not separately reported) Documenting clinical information in the electronic or other health record Independently interpreting results (not separately reported) and communicating results to the patient/family/caregiver Care coordination (not separately reported) - Yoanna Dorsey DNPCHACE 01/07/24 10:53 AM [facility]ACE Rayo 01/07/24 1053 documented in this encounter [facility] 01-07-2024 Instructions CHACE Rayo - 01/07/2024 10:30 [...] earlier if needed. documented in this encounter [facility] 12-13-2023 Miscellaneous Notes Okay to sign and send documented in this encounter [facility] 12-13-2023 Telephone encounter Note Okay to sign and send [facility] Evaluation note Diagnosis General weakness- Primary Other malaise and fatigue History of falling documented in this encounter [facility] HealthcareEvaluation [facility]* Diagnosis Mixed hyperlipidemia (CMS/HCC)- Primary Mixed hyperlipidemia Stress incontinence of urine documented in this encounter [facility] HealthcareEvaluation note* Diagnosis General weakness- Primary Other malaise and fatigue History of falling documented in this encounter [facility] HealthcareEvaluation note* Diagnosis General weakness- Primary Other malaise and fatigue History of falling documented in this encounter [facility] HealthcareEvaluation note* Diagnosis Migraine without aura and [...] of both ears [facility] Diagnosis Essential hypertension Unspecified essential hypertension [facility] Diagnosis Essential hypertension Unspecified essential hypertension [facility] Diagnosis Essential hypertension- Primary Unspecified essential hypertension LVH (left ventricular hypertrophy) Cardiomegaly Mixed hyperlipidemia Hypotension due to drugs Other iatrogenic hypotension [facility] Diagnosis Brain mass [G93.89]- Primary Unspecified condition of brain [facility] Intracranial meningioma (HCC)- Primary Benign neoplasm of cerebral meninges Sensorineural hearing loss (SNHL) of right ear, unspecified hearing status on contralateral side Dizziness Dizziness and giddiness documented in this [facility]ructionsNot on filedocumented in this encounterPro[facility] SystemInstructionsNot on filedocumented in this encounterProGreen Cross [facility] SystemInstructionsNot on filedocumented in this encounterProGreen Cross Hospital SystemInstructionsNot on filedocumented in this encounterProGreen Cross [facility] System Summary Purpose Family History No Family History Records FoundNo Family History Records FoundNo Family History Records FoundNo Family History Records FoundNo Family History Records FoundNo Family History Records FoundNo Family History Records FoundNo Family History Records FoundNo Family History Records FoundNo Family History Records Found Advance Directives No Advanced Directives Records FoundDocuments on File Type Date Recorded Patient [place] Expl anation Durable Power of Voice Data Communications Engineer 07/16/2021 3:45 PM Living Will 07/16/2021 3:40 [...] Documents on File Type Date Recorded Patient [place] Expl anation Durable Power of Voice Data Communications Engineer 07/16/2021 3:45 PM Living Will 07/16/2021 3:40 [...] ears Procedures Hearing Evaluation (Audiology) Yoanna Dorsey, FILTER CHANGING TECHNICIAN-BEHAVIOR THERAPIST [address] [place] [address] Referral ID Status Reason Start Date Expiration Date V isits Requested Visits Authorized [id number] Pending Review 01/07/2024 01/06/2025 1 1 Additional Source Comments INFORMATION SOURCE (unrecogn ized section and content) DATE CREATED AUTHOR 05/16/2018 [facility] DATE CREATED AUTHOR AUTHOR'S ORGANIZ ATION 06/21/2019 [facility] DATE CREATED AUTHOR AUTHOR'S ORGANIZ ATION 11/13/2022 [facility] DATE CREATED AUTHOR AUTHOR'S ORGANIZ ATION 12/07/2022 [facility] dical Specialist DATE CREATED AUTHOR AUTHOR'S ORGANIZ ATION 12/04/2023 [facility] DATE CREATED AUTHOR AUTHOR'S ORGANIZ ATION 02/13/2024 [facility] DATE CREATED AUTHOR AUTHOR'S ORGANIZ ATION 03/16/2024 [facility] DATE CREATED AUTHOR AUTHOR'S ORGANIZ ATION 03/25/2024 [facility] DATE CREATED AUTHOR AUTHOR'S ORGANIZ ATION 04/07/2024 [facility] dical Specialists EPIC DATE CREATED AUTHOR AUTHOR'S ORGANIZ ATION 04/08/2024 [facility] Reason for Visit (unrecogniz ed section and content) Reason Onset Date Comments Med Refill 12/13/2023 Specialty Diagnoses / Procedures Referred By Violette staley Referred To Contact Physical Therapy Diagnoses Muscle weakness (generalized) Procedures TREATMENT Bia Cao MD [address] [place] [address] Elmer Pettit, PT [address] [place] [address] Referral ID Status Reason Start Date Expiration Date V isits Requested Visits Authorized [id number] Authorized 12/08/2023 06/05/2024 99 99 Reason Comments Med Refill Reason Comments Blood Pressure Check Reason Comments Received Outside Medical Records Externa l referral to [facility]rological [place] triage Nurse Triage Call Appointment Reason Comments Consult Care Teams (unrecognized sec tion and content) Bench Worker Apprentice Relationship Specialty Start Date End Date Bia Cao MD [address] [place], [place] [id number] PCP - General Family Medicine 02/05/23 Bench Worker Apprentice Relationship Specialty Start Date End Date Jacob Viveros PCP - [employer] 11/22/22 Bia Cao MD [address] [place] [address] PCP - General Family Medicine 04/29/23 Bench Worker Apprentice Relationship Specialty Start Date End Date Jacob Viveros PCP - [employer] 11/22/22 Bia aCo MD [address] [place] [address] PCP - General Family Medicine 04/29/23 Bench Worker Apprentice Relationship Specialty Start Date End Date Jacob Viveros PCP - [employer] 11/22/22 Bia Cao MD [address] [place] [address] PCP - General Family Medicine 04/29/23 Bench Worker Apprentice Relationship Specialty Start Date End Date Jacob Viveros PCP - [employer] 11/22/22 Bia Cao MD [address] [place] [address] PCP - General Family Medicine 04/29/23 Bench Worker Apprentice Relationship Specialty Start Date End Date Jacob Viveros PCP - [employer] 11/22/22 Bia Coa MD [address] [place] [address] PCP - General Family Medicine 04/29/23 Bench Worker Apprentice Relationship Specialty Start Date End Date Adeline Viverosbri Mccormick PCP - [employer] 11/22/22 Bia Cao MD [address] [place] [address] PCP - General Family Medicine 04/29/23 Bench Worker Apprentice Relationship Specialty Start Date End Date Bia Cao MD [address] [place] [address] PCP - General Family Medicine 02/05/23 Bench Worker Apprentice Relationship Specialty Start Date End Date Bia Cao MD [address] [facility] [place] [address] PCP - General Family Medicine 02/05/23 Bench Worker Apprentice Relationship Specialty Start Date End Date Bia Cao MD [address] [facility] [place] [address] PCP - General Family Medicine 02/05/23 Bench Worker Apprentice Relationship Specialty Start Date End Date Bia Cao MD [address] [facility] [place] [address] PCP - General Family Medicine 02/05/23 Bench Worker Apprentice Relationship Specialty Start Date End Date (Hist), No Pcp PCP - General 11/04/17 Ileana Cortes MD [address] [place] [address] NI Referring Team Neurosurgery 03/24/24 Bench Worker Apprentice Relationship Specialty Start Date End Date (Hist), No Pcp PCP - General 11/04/17 Ileana Cortes MD [address] [facility] [place] [address] [place] [address] NI Referring Team Neurosurgery 03/24/24 Source Comments (unrecognize d section and content) In the event this informatio n is protected by the Federal Confidentiality of Alcohol and Drug Abuse Patient Records regulations: The Federal rules restrict any use of the information to criminally investigate or prosecute any alcohol or drug abuse patient.[facility] the event this information is protected by the Federal Confidentiality of Alcohol and Drug Abuse Patient Records regulations: The Federal rules restrict any use of the information to criminally investigate or prosecute any alcohol or drug abuse patient.[facility] FOR RECORDS PERTAINING TO PATIENTS WHO ARE [...] BE BASED ON THE PRIMARY CLINICAL RECORDS. [facility] [email or web address] [facility]. provides no warranty or guarantee of the accuracy or completeness of information in this document.
--- NOTE | 2024-05-01 13:18 | P.CN_ITS ---
Consult Note: HPI Data of Consult Patient: known to practice within the last 3 years Consult date: 05/01/24 Requesting Physician: Adelfo Hansen MD Primary Care Provider: TRUE DAVIS Consult Narrative Reason for consult: right neck pain Narrative: 79yof who presents for in office injection. continues to have right neck and shoulder pain. cc:: CC: Adelfo Hansen MD Review of Systems ROS Status of ROS 10 or more systems reviewed and unremark able except as noted in history and below PFSH PFSH Medical History TMJ (dislocation of temporomandibular joint) ?S03.00XA - Dislocation of jaw, unspecified side, initial encounter (ICD-10) Neck pain ?M54.2 - Cervicalgia (ICD-10) Back pain ?M54.9 - Dorsalgia, unspecified (ICD-10) Osteoarthritis ?M19.90 - Unspecified osteoarthritis, unspecified site (ICD-10) H/O psychiatric care ?Z92.89 - Personal history of other medical treatment (ICD-10) Heartburn ?R12 - Heartburn (ICD-10) Acid reflux ?K21.9 - Gastro-esophageal reflux disease without esophagitis (ICD-10) Hypothyroid ?E03.9 - Hypothyroidism, unspecified (ICD-10) Kidney stones ?N20.0 - Calculus of kidney (ICD-10) Asthma ?J45.909 - Unspecified asthma, uncomplicated (ICD-10) High cholesterol ?E78.00 - Pure hypercholesterolemia, unspecified (ICD-10) Hypertension ?I10 - Essential (primary) hypertension (ICD-10) Surgical History H/O shoulder surgery ?Z98.890 - Other specified postprocedural states (ICD-10) H/O excision of hemangioma ?Z98.890 - Other specified postprocedural states (ICD-10) ?Z86.018 - Personal history of other benign neoplasm (ICD-10) H/O basal cell carcinoma excision ?Z98.890 - Other specified postprocedural states (ICD-10) ?Z85.828 - Personal history of other malignant neoplasm of skin (ICD-10) H/O lumbosacral spine surgery ?Z98.890 - Other specified postprocedural states (ICD-10) H/O foot surgery ?Z98.890 - Other specified postprocedural states (ICD-10) H/O hand surgery ?Z98.890 - Other specified postprocedural states (ICD-10) H/O wrist surgery ?Z98.890 - Other specified postprocedural states (ICD-10) History of cholecystectomy ?Z90.49 - Acquired absence of other specified parts of digestive tract (ICD- 10) H/O breast biopsy ?Z98.890 - Other specified postprocedural states (ICD-10) History of appendectomy ?Z90.49 - Acquired absence of other specified parts of digestive tract (ICD- 10) History of tonsillectomy and adenoidectomy ?Z90.89 - Acquired absence of other organs (ICD-10) Meds Home Medications and Allergies Home Medications ?Medication ?Instructions ?Recorded ?Confirmed ?Type acetaminophen 650 mg 1,300 mg PO Q8H PRN pain 07/07/23 03/13/24 History tablet,extended release (Arthritis Pain Relief (acetaminophen) ER) albuterol 90 mcg/actuation aerosol 90 mcg inhalation .every 4 hours 07/07/23 03/13/24 History inhaler PRN shortness of breath or wheezing alendronate 35 mg tablet 70 mg PO QWEEK 07/07/23 03/13/24 History amitriptyline 50 mg tablet 50 mg PO DAILY 07/07/23 03/13/24 History ascorbic acid (vitamin C) 500 mg 500 mg PO BID 07/07/23 03/13/24 History tablet,extended release (C Complex) aspirin 81 mg tablet,delayed 81 mg PO DAILY 07/07/23 03/13/24 History release (Adult Aspirin Regimen) atorvastatin 40 mg tablet 40 mg PO DAILY 07/07/23 03/13/24 History calcium carbonate (Calcium 600) 600 mg PO DAILY 07/07/23 03/13/24 History carvedilol 25 mg tablet 25 mg PO BID 07/07/23 03/13/24 History cholecalciferol (vitamin D3) 50 200 mcg PO DAILY 07/07/23 03/13/24 History mcg (2,000 unit) tablet (Vitamin D3) escitalopram oxalate 20 mg tablet 20 mg PO DAILY 07/07/23 03/13/24 History famotidine 20 mg tablet 20 mg PO DAILY 07/07/23 03/13/24 History fenofibrate 160 mg tablet 160 mg PO DAILY 07/07/23 03/13/24 History fexofenadine 180 mg tablet 180 mg PO DAILY 07/07/23 03/13/24 History hydralazine 100 mg tablet 100 mg PO TID 07/07/23 03/13/24 History kkgezbjuylnqb-jfnnzemjzxwds-oseyipvxcahyz 2 cap PO 07/07/23 History 65 mg-100 mg-325 mg capsule levothyroxine 150 mcg capsule 150 mcg PO DAILY 07/07/23 03/13/24 History lisinopril 20 1 tab PO DAILY 07/07/23 03/13/24 History mg-hydrochlorothiazide 12.5 mg tablet magnesium 250 mg tablet 250 mg PO DAILY 07/07/23 03/13/24 History ciiiorsv-kqe-krove acid 0.4 1 tab PO DAILY 07/07/23 03/13/24 History mg-lycopene 300 mcg-lutein 250 mcg tablet (Centrum Silver) omeprazole 40 mg capsule,delayed 40 mg PO DAILY 07/07/23 03/13/24 History release oxybutynin chloride 10 mg 10 mg PO DAILY 07/07/23 03/13/24 History tablet,extended release 24 hr buprenorphine 7.5 mcg/hour weekly 1 patch transdermal QWEEK #4 ea 07/19/23 03/13/24 Rx transdermal patch (Butrans) buprenorphine 7.5 mcg/hour weekly 1 patch transdermal Q7D #4 ea 03/06/24 03/13/24 Rx transdermal patch (Butrans) buprenorphine 7.5 mcg/hour weekly 1 patch transdermal QWEEK #4 ea 04/05/24 Rx transdermal patch (Butrans) methocarbamol 500 mg tablet 500 mg PO BID 04/19/24 04/19/24 History buprenorphine 7.5 mcg/hour weekly 1 patch transdermal Q7D #4 ea 05/01/24 Rx transdermal patch (Butrans) Allergies Allergy/AdvReac Type Severity Reaction Status Date / Time adhesive tape Allergy Verified 02/07/24 10:34 Influenza Virus Vaccines Allergy Verified 02/07/24 10:34 lincomycin [From Lincocin] Allergy Verified 02/07/24 10:34 Penicillins Allergy Verified 02/07/24 10:34 Exam Narrative Exam Narrative: Psych-alert and oriented x 3.? Attentive and appropriate, constitutionally normal, displays normal mood and affect per situation.? There are no obvious deficits in memory, reasoning, or intellect.? Skin-no obvious rashes, bruising, or erythema noted to the patient's area of pain. Extremities-upper extremities are warm with minimal edema and palpable pulses. Cervical- tenderness to palpation noted in the cervical spine and paraspinal musculature.?Multiple trigger points expressed on palpation. Pain is elicited with extension, and lateral rotation of the cervical spine.? Range of motion is slightly diminished due to pain. Coordination remains intact.? Gait remains non-antalgic. Assessment and Plan Assessment and Plan (1) Myofascial pain: Plan 79yof who presents for in office injection. continues to have right neck and shoulder pain, would like to proceed with trigger point injection. we agree to proceed. Procedure: Right splenius capitis, trapezius, sternocleidomastoid trigger point injection Medications: Bupivacaine 0.25% 4cc, kenalog 40mg I explained the details of the procedure to the patient including the risks, benefits, and alternatives.? We had an informed discussion.? The patient verbalized understanding and signed the consent form.? All questions were answered appropriately.? A time-out was performed.? After obtaining a comfortable seated position, the skin overlying the right neck and shoulder region was prepped with alcohol 3 times. The needle was inserted in a sterile manner through the skin towards the palpated trigger point areas. The contents of the syringe were gently injected without any resistance 1cc at a time into the appropriate trigger point.? The needle was removed and pressure was applied at the injection site to decrease the incidence of ecchymosis and hematoma formation.? A sterile bandage was applied. The patient tolerated the procedure well.
== END 2024-05-01 12:56 | disposition home or self-care (01) ==
PROVIDERS: PCP Family Medicine; Visit Provider Anesthesiology
DX: M79.18 Myalgia, other site (principal)
CPT/HCPCS: 20553

== ENCOUNTER 2024-06-22 11:24 | Outpatient (OUT) | payer MEDICARE, SELFPAY ==
--- OUTSIDE RECORDS SUMMARY | 2024-06-22 11:40 | XMS_ITS | CCD ---
Author Organization [facility] CliniSyks Care Team Providers Care Engine Specialist Name Role Phone LENNY PEDRAZA Unavailable Unavailable AUDREY HORN Unavailable Unavailable AUDREY HORN Unavailable Unavailable LENNY PEDRAZA Unavailable Unavailable NASH, BIA F Primary Care Unavailable NASH, BIA F Primary Care Unavailable LALIT LEACH Attending Unavailable NASH, BIA F Referring Unavailable NASH, BIA F Primary Care Unavailable Nash GARCIA, [facility] Primary Care Provider [phone] Jacob Viveros Unavailable Unavailable Nash GARCIA, [facility] Primary Care Provider NASH, BIA Primary Care Unavailable JUAN TAMEZ Attending Unavailable JUAN TAMEZ Attending Unavailable JUAN TAMEZ Referring Unavailable NASH, BIA Primary Care Unavailable JOHN JOHNSON Referring Unavailable NASH, BIA Primary Care Unavailable YOANNA DORSEY Referring Unavailable NASH, BIA Primary Care Unavailable YOANNA DORSEY Attending Unavailable NASH, BIA F Referring Unavailable NASH, BIA F Primary Care Unavailable NASH, BIA F Referring Unavailable NASH, BIA F Primary Care Unavailable YOANNA DORSEY Attending Unavailable NASH, BIA F Referring Unavailable NASH, BIA F Primary Care Unavailable ILEANA CORTES Attending Unavailable YOANNA DORSEY Referring Unavailable NASH, BIA F Primary Care Unavailable (Hist), No Pcp Primary Care Provider UnavailIleana Paris MD Unavailable MANDI HOOVER Attending Unavailable NASH, BIA F Attending Unavailable NASH, [...] Attending Unavailable NASH, BIA F Attending Unavailable Giedraitis , Andrius Maria Elena Attending Unavailable Giedraitis MD, Andrius Vytautas Attending Unavailable Giedraitis MD, Andrius Vytautas Attending Unavailable Giedraitis MD, Andrius Vytautas Attending Unavailable Giedraitis MD, Andrius Vytautas Attending Unavailable Giedraitis MD, Andrius Vytautas Attending Unavailable Giedraitis MD, Andrius Vytautas Attending Unavailable Allergies Allergy Classification Reported Allergen(s) Allergy Type Date of Onset Reaction(s) Facility Amoxicillin / Clavulanate (1 source) Amoxicillin / Clavulanate Drug Allergy 08-14-20 11 Rash [facility] Aspartame (1 source) Aspartame Drug Allergy 02-13-20 17 Other: See Comments [facility] Clavulanate (1 source) Clavulanate Drug Allergy 02-13-20 17 Rash [facility] egg white (chicken) allergenic extract (1 source) egg white (chicken) allergenic extract Drug Allergy 08-14-20 11 Swelling [facility] Lincomycin (1 source) Lincomycin Drug Allergy 11-04-20 16 Rash [facility] NSAIDs (1 source) oxaprozin Drug Allergy 11-04-20 16 Rash [facility] Penicillins (antibiotic) (1 source) Penicillins Drug Allergy 11-04-20 16 Rash [facility] (12 sources) Adhesive agent; Translations: [ADHESIVE] Propensity to [...] Allergy 08-14-20 11 Anaphylaxis, Rash [facility] (12 sources) Lincosamides (Antibiotic); Translations: [LINCOSAMIDES] Propensity to [...] drug (disorder) 11-11-20 22 Hives [facility] (12 sources) INFLUENZA VIRUS VACCINES; Translations: [INFLUENZA VIRUS VACCINES] Propensity to adverse reactions to drug (disorder) 02-13-20 17 Swelling [facility] (14 sources) OTHER; Translations: [OTHER] Propensity to adverse reactions (disorder) 02-13-20 17 Other (See Comments), Swelling [facility] (17 sources) AMOXICILLIN-POT CLAVULANATE; Translations: [AMOXICILLIN-POT CLAVULANATE] Propensity to adverse reactions to drug (disorder) 08-14-20 11 Rash [facility] (18 sources) CLEMIZOLE; Translations: [CLEMIZOLE] Propensity to adverse reactions to drug (disorder) 02-13-20 17 Rash [facility] (6 sources) Influenza Vaccines Drug Allergy 06-04-20 23 Rash [facility] (6 sources) Lincomycin Drug Allergy 12-01-19 22 Unknown [facility] (6 sources) Sulfonamides (Antibiotic) Drug Intolerance 11-11-20 22 Hives [facility] (6 sources) Eggs Or Egg-Derived Products Drug Allergy 08-14-20 11 Swelling, Unknown [facility] (6 sources) Poultry Meal Propensity to adverse reactions 03-02-20 [facility] (6 sources) Wound Dressing Adhesive Drug Allergy 06-04-20 23 Rash [facility] (3 sources) egg white (chicken) allergenic extract; Translations: [EGG WHITE] Drug Allergy 08-14-20 11 Swelling [facility] Medications Current Medications Medication Drug Class(es) Dates Sig (Normalized) Sig (Original) acetaminophen 500 mg oral tablet (8 sources) take 500-1000 mg by mouth every eight hours as needed acetaminophen (TYLENOL) 500 mg tablet Take 500-1,000 mg by mouth three times daily as needed. 0 Active take 2 tablets by mo ut every six hours as needed for pain [...] every six hours as needed for headache qavnzlc-aaullnfnicsqk-poctlnvs (EXCEDRIN MIGRAINE) 250-250-65 mg per tablet Take 1 tablet by mouth every 6 (six) hours as needed for headaches. 0 Active acetaminophen 325 mg / butalbital 50 mg / caffeine 40 mg oral tablet (11 sources) Barbiturate, Central Nervous System Stimulant, Methylxanthine St ar t: take 1 tablet by mouth every four hours as needed for headache ohaywgdqru-sydgeovhwezno-jaqm (ESGIC) 50-325-40 mg per tablet Take 1 tablet by mouth every 4 (four) hours as needed for headaches. No more than 2 tablets daily, and no more than 2 days a week. 20 tablet 2 04/23/2023 Active acetaminophen 325 mg / dichloralphenazone 100 mg / isometheptene 65 mg oral capsule (3 sources) take 1 capsule by mouth every six hours as needed acetaminophen-dichloralphenazone -isometheptene (MIDRIN) 65-100-325 mg per capsule 1 capsule four times daily as needed. 0 Active [id number] 200 actuat albuterol 0.09 mg/actuat metered dose inhaler (14 sources) beta2-Adrenergic Agonist St ar t: take 2 puff(s) by inhalation every four [...] Active alendronic acid 70 mg oral tablet (16 sources) Bisphosphonate Start: 01-25-2024 take 1 tablet [...] Active amitriptyline hydrochloride 50 mg oral tablet (15 sources) Tricyclic Antidepressant Start: 11-17-2023 End: 11-16-2024 [...] 0 Active atorvastatin 40 mg oral tablet (15 sources) HMG-CoA Reductase Inhibitor Start: 2016 End: [...] mg / cholecalciferol 800 unt oral tablet (14 sources) Vitamin D take 1 tablet by [...] 0 Active carvedilol 25 mg oral tablet (14 sources) alpha-Adrenergic To, beta-Adrenergic To Start: 01-24-2018 take 1 tablet by mouth twice daily carvedilol (COREG) 25 mg tablet Take 25 mg by mouth twice daily. 1 01/24/2018 Active carvedilol (Core g) 25 MG tablet every 12 (twelve) hours. 0 Active cholecalciferol 0.025 mg ora l tablet (14 sources) Vitamin D cholecalciferol (VITAMIN D3) 1,000 unit tab tablet 1,000 Units once daily. 0 Active cholecalciferol (Vitamin D-3) 25 MCG (1000 UT) tablet 1,000 Units in the morning. Take before meals. 0 Active cyclobenzaprine hydrochloride 5 mg oral tablet (3 sources) Muscle Relaxant take 2 tablets by mouth every eight hours as needed cyclobenzaprine (FLEXERIL) 5 mg tablet Take 10 mg by mouth three times daily as needed. 0 Active diclofenac sodium 75 mg delayed release oral tablet (3 sources) Nonsteroidal Anti-inflammatory Drug take 1 tablet by mouth every twelve hours as needed diclofenac, EC, (VOLTAREN) 75 mg EC tablet Take 75 mg by mouth twice daily as needed. 0 Active escitalopram 20 mg oral tablet (14 sources) Serotonin Reuptake Inhibitor Start: 024 End: 025 take 1 tablet by mouth at mealtime escitalopram (Lexapro) 20 MG tablet Indications: Anxiety Take 1 tablet (20 mg) by mouth in the evening. Take with meals 100 tablet 3 12/15/2023 12/14/2024 Active esomeprazole 40 mg delayed release oral capsule (3 sources) Proton Pump Inhibitor esomeprazole (NEXIUM ) 40 mg capsule Take 40 mg by mouth. 0 Active ezetimibe 10 mg / simvastatin 40 mg oral tablet (3 sources) HMG-CoA Reductase Inhibitor, Dietary Cholesterol Absorption Inhibitor ezetimibe-simvastati n 10-40 mg (VYTORIN) 10-40 mg per tablet Take by mouth. 0 Active famotidine 20 mg oral tablet (13 sources) Histamine-2 Receptor Antagonist Start: famotidine (PEPCID) 20 mg tablet Take 20 mg by mouth. 0 07/07/2023 Active fenofibrate 160 mg oral tablet (14 sources) Peroxisome Proliferator Receptor alpha Agonist Start: End: take 1 tablet by mouth in the morning fenofibrate (Triglide) 160 MG tablet Indications: Hyperlipidemia, unspecified hyperlipidemia type (CMS/HCC) Take 1 tablet (160 mg) by mouth in the morning. 100 tablet 3 10/26/2023 10/25/2024 Active ferrous sulfate 325 mg oral tablet (5 sources) Start: ferrous sulfate 325 mg (65 mg iron) tablet Take 325 mg by mouth. 0 01/18/2024 Active fexofenadine hydrochloride 180 mg oral tablet (14 sources) Histamine-1 Receptor Antagonist take 1 tablet by mouth once daily fexofenadine (RALPH) 180 mg tablet Take 180 mg by mouth once daily. 0 Active hydrALAZINE hydrochloride 100 mg oral tablet (13 sources) Arteriolar Vasodilator Start: hydrALAZINE (APRESOLINE) 100 mg tablet Indications: Essential [...] mg / lisinopril 20 mg oral tablet (13 sources) Thiazide Diuretic, Angiotensin Converting Enzyme Inhibitor [...] / losartan potassium 100 mg oral tablet (3 sources) Thiazide Diuretic, Angiotensin 2 Receptor To Start: 01-24-2018 take 1 tablet by mouth once daily losartan-hydrochlorothiazide (HYZAAR) 100-25 mg per tablet Take 1 tablet by mouth once daily. 1 01/24/2018 Active iv contrast (will be provided with radiology test) (1 source) Start: 05-09-2024 End: 05-10-2024 inject 1 dose intravenously once iv contrast (will be provided with radiology test) MRI Brain Inject, intravenously, once for 1 dose.No IV access, insert saline lock prior to beginning of sedation, infusion, injection of imaging exam.Discontinue saline lock post exam. If Pt. has a central line or IVAD, may access for administration according to line specific nursing protocol.Once exam is complete flush line and de-access according to line specific nursing protocol in the MR contrast administration guidelines link 1 Each 0 05/09/2024 05/10/2024 Active L.acidoph/B.animalis /B.longum (FLORAJEN DIGESTION ORAL) (5 sources) take 1 tablet by mouth in the morning L.acidoph/B.animalis/B.longum (FLORAJEN DIGESTION ORAL) Take 1 tablet by mouth in the morning. 0 Active lactobacillus acidophilus 16 mg oral capsule (6 sources) Lactobacillus (F lorajen Women) capsule as directed Orally 0 Active levothyroxine sodium 0.15 mg oral tablet (14 sources) l-Thyroxine Start: 01-21-2018 levothyroxine (SYNTHROID) 15 [...] Active magnesium gluconate 500 mg oral tablet (3 sources) magnesium glucon ate (MAGONATE) 27 mg (500 mg) tab Take 500 mg by mouth once daily. 0 Active meclizine hydrochloride 25 mg oral tablet (9 sources) Antiemetic take 1 tablet by mouth every eight hours as needed meclizine (ANTIVERT) 25 mg tab Take 25 mg by mouth three times daily as needed. 0 Active metoclopramide 10 mg oral tablet (3 sources) Dopamine-2 Receptor Antagonist take 1 tablet by mouth every six hours as needed metoclopramide HCl (REGLAN) 10 mg tablet Take 10 mg by mouth every 6 hours as needed. 0 Active multivitamin tablet (3 sources) take 1 tablet by mouth once daily multivitamin tablet Take 1 tablet by mouth once daily. 0 Active multivitamin with minerals (Centrum) 9-200 mg-mcg tablet split tablet (6 sources) multivitamin wit h minerals (Centrum) 9-200 mg-mcg tablet split tablet multivitamin Multiple Vitamins 0 Active naproxen 250 mg oral tablet (2 sources) Nonsteroidal Anti-inflammatory Drug naproxen (NAPROSYN) 250 mg tablet Take by mouth as directed. 0 Active omeprazole 40 mg delayed release oral capsule (14 sources) Proton Pump Inhibitor Start: 024 take 1 capsule by mouth in the morning omeprazole (PriLOSEC) 40 mg capsule Indications: Gastroesophageal reflux disease, unspecified whether esophagitis present Take 1 capsule (40 mg total) by mouth in the morning. 180 capsule 3 11/29/2023 Active Start: 12-02-2016 omeprazole ([place] ILOSEC) 20 mg capsule 20 mg once daily. 0 12/02/2016 Active 24 hr oxybutynin chloride 10 mg extended release oral tablet (14 sources) Cholinergic Muscarinic Antagonist Start: 11-21-2020 End: [...] 11/21/2020 Active therapeutic multivitamin (THERA VITAMIN) tablet (2 sources) therapeutic mult ivitamin (THERA VITAMIN) tablet Take [...] 0 Active topiramate 100 mg oral tablet (3 sources) Start: 12-21-2017 topiramate (TOPAMAX) 100 mg [...] hydrochloride 120 mg extended release oral tablet (3 sources) Calcium Channel To Start: 12-27-2017 verapamil [...] 01/18/2024 Active zafirlukast 20 mg oral tablet (14 sources) Leukotriene Receptor Antagonist Start: 01-07-2018 End: [...] by mouth. 0 04/23/2023 01/07/2024 Discontinued pediatric mgnrgjva-vfth-hj n (flintstones complete) tablet,chewable (3 sources) Start: 01-18-2024 End: 02-24-2024 pediatric ixqcayed-yhtq-trr (flintstones complete) tablet,chewable Chew 1 tablet and swallow in the morning. 90 tablet 3 01/18/2024 02/24/2024 Discontinued (Duplicate Listing) Start: 01-18-2024 pediatric mult ddzf-bfzz-dzf (flintstones complete) tablet,chewable Chew 1 tablet and [...] 4 Chronic Other and unspecified benign neoplasm (2 sources) Intracranial meningioma; Translations: [Benign neoplasm of cerebral meninges] 04-05-2024 Chronic Other and unspecified benign neoplasm (1 source) Benign neoplasm of meninges; Translations: [Benign neoplasm of meninges, unspecified] 05-09-2024 Chronic Other connective tissue disease (6 sources) [...] 1 Resolved: 3 01-07-2017 Chronic Thyroid disorders (11 sources) Acquired [...] Test Name Value Interpretation Reference Range Facility [facility] 04-04-2024 CNOV Office Visit (NSCAMN ) -- ANGELA RUTH ([id number]) 1945 F Date Time Provider Department 04/04/24 10:30 AM MANDI HOOVER NSCAMN During your visit today, we recorded the following information about you: Temperature Pulse Respiration Blood pressure 97.7 degrees 80/minute 18/minute 105/65 Weight Height 69.6 kg 1.6 m Mandi Hoover MD 04/05/2024 5:50 PM Signed SECTION OF SKULL BASE SURGERY MINIMALLY INVASIVE CRANIAL BASE AND PITUITARY SURGERY PROGRAM [facility] [place], [facility] CC: Patient Care Team: Bia Cao as PCP ([facility]) Ileana Cortes MD as NI Referring Team [...] 6 months with a repeat MRI scan ([place] preference) and clinic visit with one of our skull base team advance practice providers ([place] preference). - follow up with cad designer for hearing loss which is unrelated to [...] Patient is accompanied by her granddaughter (her assembly line driver) and great grand daughter). The patient [...] contrast and shows a 1.2 cm R HIDE BUYER contrast-enhancing lesion concerning for either schwannoma or meningioma- no associated mass effect or edema. The patient takes ASA 81 mg daily for cardioprotection per her PCP. The patient has been using a cane for the last 5-6 years. The patient reports that ~6 weeks ago, she walked into her garage door and fell. The patient has not seen an cad designer or a vestibular therapist. Past Medical History: [...] Units once (more content not included)... Normal [facility] Russ 03-24-2024 [facility] Telephone (NIQ) -- ANGELA RUTH ([id number]) 1945 F Date Time Provider Department 03/24/24 NEUROLOGY PROVIDER YOANDY During your visit today, we recorded the following information about you: Shelli Fletcher 03/24/2024 5:01 PM Signed Referral source: Ileana Cortes MD ([facility]) Reason for visit: consideration of gamma knife for 1.2 cm enhancing lesion at right cerebelloponitine angle with leading differential including vestibular schwannoma and meningioma External records: Sent with referral and pulled from [facility] Triage: Required, forwarded to [facility] by telephone encounter sent to [facility] Scheduling Triage. Financial clearance: Not required to schedule Vanesa Morgan APRN.[facility] 03/28/2024 10:00 AM Signed Time Frame: First available Provider: Kiko Landrum Soni Referring: Ileana Cortes MD Images to be requested from [facility] Dx: Right CPA mass Patient: Angela Ruth Address: Angela Ruth [id number] [place] [address] [facility] [address] Per Triage: HISTORY OF PRESENT ILLNESS Angela [...] extracranial soft tissues are unremarkable. Vanesa Morgan, MASOOD.DAIRY INSPECTOR March 28, 2024 Etelvina Trujillo 03/28/2024 10:12 AM Signed Called patient to schedule an appointment. No ans/left message to call the office back. Appointment scheduled: 04/04/2024 10:30 AM (Arrive by 10:15 AM) Mandi Hoover MD [facility] RAMAN Alonso Janette 04/06/2024 10:40 AM Addendum Imaging requested from [place] [facility]. DOS requested: MRI 03/02/2024 CT Scan 02/11 2024 AND 03/09/2023, 02/11/2024. All images viewable in Epic Allergies As of Date: 03/24/2024 Noted Allergy Reaction [...] Rash Date Reviewed: 01/27/2018 Reviewed by: Valentine Madrid), JERALD - Fully Assessed Reason for Visit: Received Outside Medical Records [3576] Cmt: External referral to [facility] [place] triage [Other] Nurse Triage Call [185] Appointment [186] Primary Visit Diagnosis:Brain mass [G93.89] [G93.89] Prescriptions as of 04/06/2024 - hydrALAZINE (APRESOLINE) 100 mg tablet take 1 tablet by mouth twice a day then MAY TAKE ADDITIONAL (50 M... (REFER (more content not included)... Normal [facility] MR BRAIN W AND WO CONTRAST ( [...] IS VERY IMPORTANT TO YOUR HEALTH. THE [place] GUIDELINES RECOMMEND THAT WOMEN 40 [...] 24 ABSOLUTE BASOPHIL 0.0 X10E9/L Normal 0.0-0.2 [facility] Comment on above: Performed By: #### 1 3965-9, CBCA, FEPR, THYR, 2276-4, 2132-9, 2284-8, IMEL, SPE #### [facility] ([id number]) [address], [address] [place] [address] #### MTHFRS #### [facility] ([id number]) [address] [place] [address] ABSOLUTE NEUTROPHIL 3.0 X10E9/L Normal 1.5-6.6 [facility] Comment on above: Performed By: #### 1 3965-9, CBCA, FEPR, THYR, 6-4, 9, 2283-8, IMEL, SPE #### [facility] ([id number]) [address] [facility] [facility] [place] [address] #### MTHFRS #### [facility] ([id number]) [address] [place] [address] Basophils/100 WBC (Bld) 0.9 % Normal [facility] Comment on above: Performed By: #### 1 3965-9, CBCA, FEPR, THYR, 6-4, 9, 2283-8, IMEL, SPE #### [facility] ([id number]) [address], [address] [place] [address] #### MTHFRS #### [facility] ([id number]) [address] [place] [address] Eosinophils (Bld) [#/Vol] 0.1 10*3/uL Normal 0.0-0.4 [facility] Comment on above: Performed By: #### 1 3965-9, CBCA, FEPR, THYR, 6-4, 9, 2283-8, IMEL, SPE #### [facility] ([id number]) [address], [address] [place] [address] #### MTHFRS #### [facility] ([id number]) [address] [place] [address] Eosinophils/100 WBC (Bld) 1.8 % Normal [facility] Comment on above: Performed By: #### 1 3965-9, CBCA, FEPR, THYR, 2276-4, 2131-9, 4-8, IMEL, SPE #### [facility] ([id number]) [address] [facility] [address], [address] [place] [address] #### MTHFRS #### [facility] ([id number]) [address] [place] [address] Erythrocyte distribution width (RBC) [Ratio] 15.1 % High 11.5-15.0 [facility] Comment on above: Performed By: #### 1 3965-9, CBCA, FEPR, THYR, 6-4, 2131-9, 2283-8, IMEL, SPE #### [facility] ([id number]) [address] [facility] [address], [address] [place] [address] #### MTHFRS #### [facility] ([id number]) [address] [place] [address] Hematocrit (Bld) [Volume fraction] 39.6 % Normal 35-47 [facility] Comment on above: Performed By: #### 1 3965-9, CBCA, FEPR, THYR, 6-4, 9, 4-8, IMEL, SPE #### [facility] ([id number]) [address] [facility] [address] [address], [address] [place] [address] #### MTHFRS #### [facility] ([id number]) [address] [place] [address] Hemoglobin (Bld) [Mass/Vol] 13.5 g/dL Normal 11.7-15.5 [facility] Comment on above: Performed By: #### 1 3965-9, CBCA, FEPR, THYR, 2276-4, 2131-9, 2284-8, IMEL, SPE #### [facility] ([id number]) [address], [address] [place] [address] #### MTHFRS #### [facility] ([id number]) [address] [place] [address] Lymphocytes (Bld) [#/Vol] 1.5 10*3/uL Normal 1.0-3.5 [facility] Comment on above: Performed By: #### 1 3965-9, CBCA, FEPR, THYR, 2276-4, 2132-9, 2284-8, IMEL, SPE #### [facility] ([id number]) [address] [facility], [address] [place] [address] #### MTHFRS #### [facility] ([id number]) [address] [place] [address] Lymphocytes/100 WBC (Bld) 28.5 % Normal [facility] Comment on above: Performed By: #### 1 3965-9, CBCA, FEPR, THYR, 2276-4, 2-9, 2284-8, IMEL, SPE #### [facility] ([id number]) [address], [address] [place] [address] #### MTHFRS #### [facility] ([id number]) [address] [place] [address] MCH (RBC) [Entitic mass] 29.0 pg Normal 27-34 [facility] Comment on above: Performed By: #### 1 3965-9, CBCA, FEPR, THYR, 2276-4, 2-9, 2284-8, IMEL, SPE #### [facility] ([id number]) [address], [address] [place] [address] #### MTHFRS #### [facility] ([id number]) [address] [place] [address] MCHC (RBC) [Mass/Vol] 34.0 g/dL Normal 32-36 [facility] Comment on above: Performed By: #### 1 3965-9, CBCA, FEPR, THYR, 2276-02, 2132-07, 2284-06, IMEL, SPE #### [facility] ([id number]) [address], [address] [place] [address] #### MTHFRS #### [facility] ([id number]) [address] [place] [address] MCV (RBC) [Entitic vol] 85 fL Normal 80-100 P [facility] Comment on above: Performed By: #### 1 3965-9, CBCA, FEPR, THYR, 2276-02, 2132-07, 2284-06, IMEL, SPE #### [facility] ([id number]) [address], [address] [place] [address] #### MTHFRS #### [facility] ([id number]) [address] [place] [address]3627 Monocytes (Bld) [#/Vol] 0.5 10*3/uL Normal 0-0.9 [facility] Comment on above: Performed By: #### 1 3965-9, CBCA, FEPR, THYR, 2276-02, 2132-07, 2284-06, IMEL, SPE #### [facility] ([id number]) [address], [address] [place] [address] #### MTHFRS #### [facility] ([id number]) [address] [place] [address]31 Monocytes/100 WBC (Bld) 10.3 % Normal P [facility] Comment on above: Performed By: #### 1 3965-9, CBCA, FEPR, THYR, 2276-02, 2132-07, 2284-8, IMEL, SPE #### [facility] ([id number]) [address], [address] [place] [address] #### MTHFRS #### [facility] ([id number]) [address] [place] [address] Neutrophils/100 WBC (Bld) 58.5 % Normal [facility] Comment on above: Performed By: #### 1 3965-9, CBCA, FEPR, THYR, 2276-4, 2131-9, 2283-8, IMEL, SPE #### [facility] ([id number]) [address], [address] [place] [address] #### MTHFRS #### [facility] ([id number]) [address] [place] [address] 26481 Platelet mean volume (Bld) [Entitic vol] 9.2 fL Normal 7-12 [facility] Comment on above: Performed By: #### 1 3965-9, CBCA, FEPR, THYR, 6-4, 2131-9, 8, IMEL, SPE #### [facility] ([id number]) [address], [address] [place] [address] #### MTHFRS #### [facility] ([id number]) [address] [place] [address] 51632 Platelets (Bld) [#/Vol] 176 10*3/uL Normal 150-450 [facility] Comment on above: Performed By: #### 1 3965-9, CBCA, FEPR, THYR, 6-4, 2131-9, 2283-8, IMEL, SPE #### [facility] ([id number]) [address], [address] [place] [address] #### MTHFRS #### [facility] ([id number]) [address] [place] [address] 04203 RBC COUNT 4.65 X10E12/L Normal 3.80-5.20 [facility] Comment on above: Performed By: #### 1 3965-9, CBCA, FEPR, THYR, 2275-4, 9, 8, IMEL, SPE #### [facility] ([id number]) [address], [address] [place] [address] #### MTHFRS #### [facility] ([id number]) [address] [place] [address] 41686 WBC (Bld) [#/Vol] 5.2 10*3/uL Normal 4.0-11.0 [facility] Comment on above: Performed By: #### 1 3965-9, CBCA, FEPR, THYR, 2276-02, 2132-07, 8, IMEL, SPE #### [facility] ([id number]) [address], [address] [place] [address] #### MTHFRS #### [facility] ([id number]) [address] [place] [address] 26439 COMPREHENSIVE METABOLIC PANE Gadiel 02-11-2024 Albumin [Mass/Vol] 4.1 g/dL Normal 3.2-5.3 [facility] Comment on above: Performed By: #### 1 3965-9, CBCA, FEPR, THYR, 2276-02, 2132-07, 8, IMEL, SPE #### [facility] ([id number]) [address], [address] [place] [address] #### MTHFRS #### [facility] ([id number]) [address] [place] [address] 26906 ALP [Catalytic activity/Vol] 42 U/L Normal 39-130 [facility] Comment on above: Performed By: #### 1 3965-9, CBCA, FEPR, THYR, 2276-4, 2132-9, 2284-8, IMEL, SPE #### [facility] ([id number]) [address] [facility], [address] [place] [address] #### MTHFRS #### [facility] ([id number]) [address] [place] [address] 79275 ALT [Catalytic activity/Vol] 18 U/L Normal 0-31 [facility] Comment on above: Performed By: #### 1 3965-9, CBCA, FEPR, THYR, 2276-4, 2-9, 2284-8, IMEL, SPE #### [facility] ([id number]) [address] [facility], [address] [place] [address] #### MTHFRS #### [facility] ([id number]) [address] [place] [address] 05793 Anion gap [Moles/Vol] 7 mmol/L Normal 5-15 [facility] Comment on above: Performed By: #### 1 3965-9, CBCA, FEPR, THYR, 2276-4, 2-9, 2284-8, IMEL, SPE #### [facility] ([id number]) [address] [facility], [address] [place] [address] #### MTHFRS #### [facility] ([id number]) [address] [place] [address] 80822 AST [Catalytic activity/Vol] 27 U/L Normal 0-41 [facility] Comment on above: Performed By: #### 1 3965-9, CBCA, FEPR, THYR, 2276-4, 2-9, 2284-8, IMEL, SPE #### [facility] ([id number]) [address] [facility], [address] [place] [address] #### MTHFRS #### [facility] ([id number]) [address] [place] [address] 31034 Bilirubin [Mass/Vol] 0.5 mg/dL Normal 0.3-1.2 [facility] Comment on above: Performed By: #### 1 3965-9, CBCA, FEPR, THYR, 2276-4, 2131-9, 2283-8, IMEL, SPE #### [facility] ([id number]) [address], [address] [place] [address] #### MTHFRS #### [facility] ([id number]) [address] [place] [address] 22551 Calcium [Mass/Vol] 9.4 mg/dL Normal 8.5-10.5 [facility] Comment on above: Performed By: #### 1 3965-9, CBCA, FEPR, THYR, 6-4, 2132-07, 8, IMEL, SPE #### [facility] ([id number]) [address], [address] [place] [address] #### MTHFRS #### [facility] ([id number]) [address] [place] [address] 25611 Chloride [Moles/Vol] 104 mmol/L Normal 98-109 [facility] Comment on above: Performed By: #### 1 3965-9, CBCA, FEPR, THYR, 6-4, 2132-07, 8, IMEL, SPE #### [facility] ([id number]) [address], [address] [place] [address] #### MTHFRS #### [facility] ([id number]) [address] [place] [address] 78916 CO2 [Moles/Vol] 25 mmol/L Normal 22-32 [facility] Comment on above: Performed By: #### 1 3965-9, CBCA, FEPR, THYR, 6-4, 2132-07, 2284-06, IMEL, SPE #### [facility] ([id number]) [address] [facility] [address] [place] [address] #### MTHFRS #### [facility] ([id number]) [address] [place] [address] 39518 Creatinine [Mass/Vol] 1.01 mg/dL High 0.40-1.00 [facility] Comment on above: Result Comment: METH OD TRACEABLE TO IDMS STANDARD Performed By: #### 1 3965-9, CBCA, FEPR, THYR, 2276-02, 2132-07, 2284-06, IMEL, SPE #### [facility] ([id number]) [address] [address] #### MTHFRS #### [facility] ([id number]) [address] [place] [address] 12206 GFR/1.73 sq M.predicted among non-blacks MDRD (S/P/Bld) [Vol rate/Area] 57 mL/min/{1.73_m2} Low >59 [facility] Comment on above: Result Comment: Reported eGFR is based on the CKD-EPI 2020 equation that does not use a race coefficient. Performed By: #### 1 3965-9, CBCA, FEPR, THYR, 2276-02, 2132-07, 2284-06, IMEL, SPE #### [facility] ([id number]) [address] [facility] [address] [place] [address] #### MTHFRS #### [facility] ([id number]) [address] [place] [address] 32488 Glucose [Mass/Vol] 114 mg/dL High 65-99 [facility] Comment on above: Performed By: #### 1 3965-9, CBCA, FEPR, THYR, 2276-02, 2132-07, 2284-06, IMEL, SPE #### [facility] ([id number]) [address], [address] [place] [address] #### MTHFRS #### [facility] ([id number]) [address] [place] [address] 47919 Potassium [Moles/Vol] 4.2 mmol/L Normal 3.5-5.0 [facility] Comment on above: Performed By: #### 1 3965-9, CBCA, FEPR, THYR, 2276-4, 9, 2283-8, IMEL, SPE #### [facility] ([id number]) [address] [facility], [address] [place] [address] #### MTHFRS #### [facility] ([id number]) [address] [place] [address] 42167 Protein [Mass/Vol] 7.2 g/dL Normal 6.0-8.0 [facility] Comment on above: Performed By: #### 1 3965-9, CBCA, FEPR, THYR, 6-4, 2132-07, 2284-06, IMEL, SPE #### [facility] ([id number]) [address], [address] [place] [address] #### MTHFRS #### [facility] ([id number]) [address] [place] [address] 24294 Sodium [Moles/Vol] 136 mmol/L Normal 134-146 [facility] Comment on above: Performed By: #### 1 3965-9, CBCA, FEPR, THYR, 6-4, 9, 8, IMEL, SPE #### [facility] ([id number]) [address], [address] [place] [address] #### MTHFRS #### [facility] ([id number]) [address] [place] [address] 10333 Urea nitrogen [Mass/Vol] 22 mg/dL Normal 5-27 [facility] Comment on above: Performed By: #### 1 3965-9, CBCA, FEPR, THYR, 2276-4, 2132-9, 2284-8, IMEL, SPE #### [facility] ([id number]) [address], [address] [place] [address] #### MTHFRS #### [facility] ([id number]) [address] [facility], [place] [address] CT ABDOMEN AND PELVIS W CONT on [...] PM Normal [facility] CT BRAIN WO CONTon CT BRAIN WO [...] by Dharmesh Mittal on 02/11/2024 1:52 PM [facility] CT CERVICAL SPINE WO CONTon 02-11-2024 CT [...] PM Normal [facility] CT CHEST W CONTon 02-11-2024 CT CHEST [...] with mammographic workup and evaluation is recommended. Ranjanahoaakash H, et al. Guidelines for Management of Incidental Pulmonary Nodules Detected on CT Images: From the Fleischner Society 2017. Radiology. 2017 Jeremi;284(1):228-243. Approved by Resident Mara Thomas DO on 02/11/2024 2:01 PM Ileana Trimble MD have personally reviewed the image(s) and agree with and/or edited the report Finalized by Ileana Ann MD on 02/11/2024 2:19 PM Normal [facility] LIPASEon 02-11-2024 Lipase [Catalytic activity/Vol] 38 U/L Normal 17-40 [facility] Comment on above: Performed By: #### 1 3965-9, CBCA, FEPR, THYR, 6-4, 2131-9, 2283-8, IMEL, SPE #### [facility] ([id number]) [address], [address] [place] [address] #### MTHFRS #### [facility] ([id number]) [address] [place] [address] 88053 CBC AND AUTO DIFFon 01-11- 24 ABSOLUTE BASOPHIL 0.1 X10E9/L Normal 0.0-0.2 [facility] Comment on above: Performed By: #### 1 3965-9, CBCA, FEPR, THYR, 6-4, 9, 2283-8, IMEL, SPE #### [facility] ([id number]) [address] [facility], [address] [place] [address] #### MTHFRS #### [facility] ([id number]) [address] [place] [address] 78715 ABSOLUTE NEUTROPHIL 2.4 X10E9/L Normal 1.5-6.6 [facility] Comment on above: Performed By: #### 1 3965-9, CBCA, FEPR, THYR, 6-4, 9, 2283-8, IMEL, SPE #### [facility] ([id number]) [address], [address] [place] [address] #### MTHFRS #### [facility] ([id number]) [address] [place] [address] 73966 Basophils/100 WBC (Bld) 1.4 % Normal [facility] Comment on above: Performed By: #### 1 3965-9, CBCA, FEPR, THYR, 6-4, 2131-9, 2283-8, IMEL, SPE #### [facility] ([id number]) [address], [address] [place] [address] #### MTHFRS #### [facility] ([id number]) [address] [place] [address] 80565 Eosinophils (Bld) [#/Vol] 0.1 10*3/uL Normal 0.0-0.4 [facility] Comment on above: Performed By: #### 1 3965-9, CBCA, FEPR, THYR, 2276-4, 2131-9, 4-8, IMEL, SPE #### [facility] ([id number]) [address] [facility], [address] [place] [address] #### MTHFRS #### [facility] ([id number]) [address] [place] [address] 73782 Eosinophils/100 WBC (Bld) 2.8 % Normal [facility] Comment on above: Performed By: #### 1 3965-9, CBCA, FEPR, THYR, 6-4, 2131-9, 2283-8, IMEL, SPE #### [facility] ([id number]) [address], [address] [place] [address] #### MTHFRS #### [facility] ([id number]) [address] [place] [address] 78165 Erythrocyte distribution width (RBC) [Ratio] 15.5 % High 11.5-15.0 [facility] Comment on above: Performed By: #### 1 3965-9, CBCA, FEPR, THYR, 6-4, 2131-9, 4-8, IMEL, SPE #### [facility] ([id number]) [address], [address] [place] [address] #### MTHFRS #### [facility] ([id number]) [address] [place] [address] 06740 Hematocrit (Bld) [Volume fraction] 38.4 % Normal 35-47 [facility] Comment on above: Performed By: #### 1 3965-9, CBCA, FEPR, THYR, 6-4, 2132-07, 8, IMEL, SPE #### [facility] ([id number]) [address], [address] [place] [address] #### MTHFRS #### [facility] ([id number]) [address] [place] [address] 79093 Hemoglobin (Bld) [Mass/Vol] 12.5 g/dL Normal 11.7-15.5 [facility] Comment on above: Performed By: #### 1 3965-9, CBCA, FEPR, THYR, 2276-02, 2132-07, 2284-06, IMEL, SPE #### [facility] ([id number]) [address], [address] [place] [address] #### MTHFRS #### [facility] ([id number]) [address] [place] [address] 49916 Lymphocytes (Bld) [#/Vol] 1.7 10*3/uL Normal 1.0-3.5 [facility] Comment on above: Performed By: #### 1 3965-9, CBCA, FEPR, THYR, 2276-02, 2132-07, 2284-06, IMEL, SPE #### [facility] ([id number]) [address], [address] [place] [address] #### MTHFRS #### [facility] ([id number]) [address] [place] [address] 13541 Lymphocytes/100 WBC (Bld) 35.8 % Normal [facility] Comment on above: Performed By: #### 1 3965-9, CBCA, FEPR, THYR, 2275-4, 2132-07, 2284-8, IMEL, SPE #### [facility] ([id number]) [address], [address] [place] [address] #### MTHFRS #### [facility] ([id number]) [address] [place] [address] 28527 MCH (RBC) [Entitic mass] 28.5 pg Normal 27-34 [facility] Comment on above: Performed By: #### 1 3965-9, CBCA, FEPR, THYR, 6-4, 2132-07, 2284-06, IMEL, SPE #### [facility] ([id number]) [address], [address] [place] [address] #### MTHFRS #### [facility] ([id number]) [address] [place] [address] 90824 MCHC (RBC) [Mass/Vol] 32.7 g/dL Normal 32-36 [facility] Comment on above: Performed By: #### 1 3965-9, CBCA, FEPR, THYR, 2275-4, 2132-07, 2284-06, IMEL, SPE #### [facility] ([id number]) [address] [place] [address] #### MTHFRS #### [facility] ([id number]) [address] [place] [address] 36732 MCV (RBC) [Entitic vol] 87 fL Normal 80-100 [facility] Comment on above: Performed By: #### 1 3965-9, CBCA, FEPR, THYR, 2275-4, 2132-07, 2284-06, IMEL, SPE #### [facility] ([id number]) [address], [address] [place] [address] #### MTHFRS #### [facility] ([id number]) [address] [place] [address] Monocytes (Bld) [#/Vol] 0.5 10*3/uL Normal 0-0.9 [facility] Comment on above: Performed By: #### 1 3965-9, CBCA, FEPR, THYR, 6-4, 2131-9, 2283-8, IMEL, SPE #### [facility] ([id number]) [address], [address] [place] [address] #### MTHFRS #### [facility] ([id number]) [address] [place] [address] 40617 Monocytes/100 WBC (Bld) 10.0 % Normal [facility] Comment on above: Performed By: #### 1 3965-9, CBCA, FEPR, THYR, 6-4, 2132-07, 2284-06, IMEL, SPE #### [facility] ([id number]) [address] [facility], [address] [place] [address] #### MTHFRS #### [facility] ([id number]) [address] [place] [address] 45145 Neutrophils/100 WBC (Bld) 50.0 % Normal [facility] Comment on above: Performed By: #### 1 3965-9, CBCA, FEPR, THYR, 2275-4, 2132-07, 2284-06, IMEL, SPE #### [facility] ([id number]) [address], [address] [place] [address] #### MTHFRS #### [facility] ([id number]) [address] [place] [address] 24576 Platelet mean volume (Bld) [Entitic vol] 9.6 fL Normal 7-12 [facility] Comment on above: Performed By: #### 1 3965-9, CBCA, FEPR, THYR, 6-4, 2132-07, 8, IMEL, SPE #### [facility] ([id number]) [address], [address] [place] [address] #### MTHFRS #### [facility] ([id number]) [address] [place] [address] 28081 Platelets (Bld) [#/Vol] 194 10*3/uL Normal 150-450 [facility] Comment on above: Performed By: #### 1 3965-9, CBCA, FEPR, THYR, 6-4, 2132-07, 8, IMEL, SPE #### [facility] ([id number]) [address], [address] [place] [address] #### MTHFRS #### [facility] ([id number]) [address] [place] [address] 99371 RBC COUNT 4.41 X10E12/L Normal 3.80-5.20 [facility] Comment on above: Performed By: #### 1 3965-9, CBCA, FEPR, THYR, 2275-, 2132-07, 2284-06, IMEL, SPE #### [facility] ([id number]) [address] [place] [address] #### MTHFRS #### [facility] ([id number]) [address] [place] [address] 84901 WBC (Bld) [#/Vol] 4.9 10*3/uL Normal 4.0-11.0 [facility] Comment on above: Performed By: #### 1 3965-9, CBCA, FEPR, THYR, 2275-4, 2132-07, 2284-06, IMEL, SPE #### [facility] ([id number]) [address] [place] [address] #### MTHFRS #### [facility] ([id number]) [address] [place] [address], [place] [address] Clinical Pathologyon 024 Clinical Pathology Normal [facility] Comment on above: Result Comment: [facility] [address] [place] [address] Clinical Pathology Report Patient Name:ANGELA RUTH:1945 (Age: 78)Gender:FTaken:4Reported:01/14/2024hysician(s):MARCE Rayo ([phone])Copy To: Rec. #:[id number]: #[id number] Final Pathologic Diagnosis No monoclonal protein identified. Report Electronically Signed Out sb/01/12/2024duncan Alamo MD [facility] [place] [address], License number: [id number]. Clinical History G25.0, R26.89, G62.9, R79.0. SERUM IEP SAMPLE NUMBER: [id number] IMMUNOGLOBULIN LEVELS (mg/dL): IgG : 652 IgA : 225 IgM : 64 Free [place]: 3.45 Free Lambda: 2.10 Free [place]/Lambda ratio: 1.64 Specimen(s) Received Serum IEP Fee Codes(s): 1; 29052-01 FERRITINon 01-11-2024 Ferritin [Mass/Vol] 47 ng/mL Normal 11-307 [place] Comment on above: Performed By: #### 1 3965-9, CBCA, FEPR, THYR, 2276-4, 2132-9, 2284-8, IMAMANDA, JOSHUA #### [facility] ([id number]) [address] [place] [address], [address] [place] [address] #### MTHFRS #### [facility] ([id number]) [address] [place] [address] 17566 Folate [Mass/Vol]on 01-11-20 FOLIC ACID >25.0 Normal >5.8 [facility] Comment on above: Result Comment: NEW REFERENCE RANGE Performed By: #### 1 3965-9, CBCA, FEPR, THYR, 2276-4, 2132-9, 2284-8, IMEL, SPE #### [facility] ([id number]) [address] [facility] [address] [place] [address] #### MTHFRS #### [facility] ([id number]) [address] [place] [address] 17963 HGB A1C (GLYCO-HGB)on 2023 Glucose [Mass/Vol] 108 mg/dL Normal [facility] Comment on above: Performed By: #### 1 3965-9, CBCA, FEPR, THYR, 2276-4, 2131-9, 2283-8, IMEL, SPE #### [facility] ([id number]) [address] [facility] [address] [place] [address] #### MTHFRS #### [facility] ([id number]) [address] [place] [address] 59416 HbA1c (Bld) [Mass fraction] 5.4 % Normal 4.4-5.6 [facility] Comment on above: Result Comment: NOTE ADA [...] THYR, 2276-4, 2132-9, 2284-8, IMEL, SPE #### [facility] ([id number]) [address] [facility] [address] [place] [address] #### MTHFRS #### [facility] ([id number]) [address] [place] [address] 07657 Homocysteine [Moles/Vol]on 0 01-11-2024 HOMOCYSTEINE 14.23 mcmol/L Normal 3.36-20.44 [facility] Comment on above: Performed By: #### 1 3965-9, CBCA, FEPR, THYR, 6-4, 2132-07, 8, IMEL, SPE #### [facility] ([id number]) [address] [place] [address], [address] [place] [address] #### MTHFRS #### [facility] ([id number]) [address] [place] [address] 62690 IMMUNOELECTROPHORESIS FOR TH ERAPY MONITORINGon 01-11-2024 FREE IRASEMA/LAMBD RATIO 1.64 Normal 0.26-1.65 [facility] Comment on above: Performed By: #### 1 3965-9, CBCA, FEPR, THYR, 6-, 2132-07, 2284-06, IMEL, SPE #### [facility] ([id number]) [address] [place] [address], [address] [place] [address] #### MTHFRS #### [facility] ([id number]) [address] [place] [address] 79403 FREE KAPPA LT CHAINS 3.45 mg/dL High 0.33-1.94 [facility] Comment on above: Performed By: #### 1 3965-9, CBCA, FEPR, THYR, 6-, 2132-07, 2284-06, IMEL, SPE #### [facility] ([id number]) [address] [place] [address], [address] [place] [address] #### MTHFRS #### [facility] ([id number]) [address] [place] [address] FREE LAMBDA LT CHAINS 2.10 mg/dL Normal 0.57-2.63 [facility] Comment on above: Performed By: #### 1 3965-9, CBCA, FEPR, THYR, 2276-4, 2131-9, 4-8, IMEL, SPE #### [facility] ([id number]) [address], [address] [place] [address] #### MTHFRS #### [facility] ([id number]) [address] [place] [address] IgA [Mass/Vol] 225 mg/dL Normal 68-378 [facility] Comment on above: Performed By: #### 1 3965-9, CBCA, FEPR, THYR, 6-4, 2131-9, 2283-8, IMEL, SPE #### [facility] ([id number]) [address] [facility], [address] [place] [address] #### MTHFRS #### [facility] ([id number]) [address] [place] [address] IgG [Mass/Vol] 652 mg/dL Normal 635-1741 [facility] Comment on above: Performed By: #### 1 3965-9, CBCA, FEPR, THYR, 6-4, 2131-9, 2283-8, IMEL, SPE #### [facility] ([id number]) [address], [address] [place] [address] #### MTHFRS #### [facility] ([id number]) [address] [place] [address] IgM [Mass/Vol] 64 mg/dL Normal 45-281 [facility] Comment on above: Performed By: #### 1 3965-9, CBCA, FEPR, THYR, 2276-4, 2131-9, 4-8, IMEL, SPE #### [facility] ([id number]) [address], [address] [place] [address] #### MTHFRS #### [facility] ([id number]) [address] [place] [address] IMMUNE PROFILE INTERP SEE SEPARATE REPORT Normal [facility] Comment on above: Performed By: #### 1 3965-9, CBCA, FEPR, THYR, 2276-4, 2-9, 2284-8, IMEL, SPE #### [facility] ([id number]) [address] [facility], [address] [place] [address] #### MTHFRS #### [facility] ([id number]) [address] [place] [address] IRON PROFILEon 01-11-2024 Iron [Mass/Vol] 100 ug/dL Normal 50-170 [facility] Comment on above: Performed By: #### 1 3965-9, CBCA, FEPR, THYR, 2276-4, 2-9, 2284-8, IMEL, SPE #### [facility] ([id number]) [address], [address] [place] [address] #### MTHFRS #### [facility] ([id number]) [address] [place] [address] IRON BINDING 438 ug/dL High 250-425 [facility] Comment on above: Performed By: #### 1 3965-9, CBCA, FEPR, THYR, 2276-4, 2-9, 2284-8, IMEL, SPE #### [facility] ([id number]) [address] [facility], [address] [place] [address] #### MTHFRS #### [facility] ([id number]) [address] [place] [address] IRON SATURATION 23 % SATURATION Normal 15-50 [facility] Comment on above: Performed By: #### 1 3965-9, CBCA, FEPR, THYR, 2276-4, 2132-9, 2284-8, IMEL, SPE #### [facility] ([id number]) [address] [facility] [facility] [address], [address] [place] [address] #### MTHFRS #### [facility] ([id number]) [address] [place] [address], [place] [address] MTHFRon 01-11-2024 MTHFR INTERPRETATION SEE NOTE Normal [facility] Comment on above: Result Comment: NOTE Indication for testing: Determine genetic contribution to hyperhomocysteinemia. Negative: Neither of the common MTHFR gene variants tested, c.665C>T (previously designated C677T) and c.1286A>C (previously designated H2235V), were detected. Other causes of elevated homocysteine [...] has an effect on cardiovascular disease. The [employer] Practice Guidelines indicate [...] a contributing factor to hyperhomocysteinemia. Variants Tested: c.665C>T(p.Djt710Zee) and c.1286A>C(p.Ygn913Vcv). (legacy names C677T and I8128Q, respectively). Clinical Sensitivity: Undefined; hyperhomocysteinemia is caused [...] developed and its performance characteristics determined by [facility]. It has not been cleared or approved by the US Food and Drug Administration. This test was performed in a CLIA certified laboratory and is intended for clinical purposes. Counseling and informed consent are recommended for genetic testing. Consent forms are available online. Performed By: [facility] [address] [place] [address] Belt Builder: Jacob Sparks MD, PhD CLIA Number: [id number] Performed By: #### 1 3965-9, CBCA, FEPR, THYR, 2276-4, 9, 8, IMEL, SPE #### [facility] ([id number]) [address] [place] [address], [address] [place], [place] [address] #### MTHFRS #### [facility] ([id number]) [address] [place] [address], [place] [address] MTHFR MUT P9820EQ Negative Normal [facility] Comment on above: Performed By: #### 1 3965-9, CBCA, FEPR, THYR, 2276-4, 2132-07, 8, IMEL, SPE #### [facility] ([id number]) [address] [facility] [facility], [address] [place] [address] #### MTHFRS #### [facility] ([id number]) [address] [place] [address], [place] [address] MTHFR MUT C665CT Negative Normal [facility] Comment on above: Performed By: #### 1 3965-9, CBCA, FEPR, THYR, 2276-4, 2-9, 4-8, IMEL, SPE #### [facility] ([id number]) [address] [place] [address], [address] [place] [address] #### MTHFRS #### [facility] ([id number]) [address] [place] [address] MTHFR PCR SPECIMEN WHOLE BLOOD Normal [place] Comment on above: Performed By: #### 1 3965-9, CBCA, FEPR, THYR, 2276-4, 2-9, 2284-8, IMEL, SPE #### [facility] ([id number]) [address] [place] [address], [address] [address] #### MTHFRS #### [facility] ([id number]) [address] [place] [address] Methylmalonate [Moles/Vol]on 01-11-2024 MMA QN 0.14 umol/L Normal <=0.40 [facility] Comment on above: Result Comment: NOTE This test was developed and its performance characteristics determined by [facility]'s [facility] [place] [facility] It has not been cleared or approved by the FDA. -[facility] is regulated under CLIA as qualified to perform high-complexity testing. This test is used for clinical purposes. It should not be regarded as investigational or for research. Test Performed By: [facility] [address] [place] [address] Belt Builder: Berry Larsen III, M.D. CLIA #[id number] Performed By: #### 1 3965-9, CBCA, FEPR, THYR, 6-4, 2131-9, 4-8, IMEL, SPE #### [facility] ([id number]) [address] [place] [address] #### MTHFRS #### [facility] ([id number]) [address] [place] [address] SERUM PROTEIN ELECTROPHORESI Son 01-11-2024 Albumin [Mass/Vol] 4.0 g/dL Normal 3.4-5.3 [facility] Comment on above: Performed By: #### 1 3965-9, CBCA, FEPR, THYR, 2276-4, 2131-9, 4-8, IMEL, SPE #### [facility] ([id number]) [address], [address] [place] [address] #### MTHFRS #### [facility] ([id number]) [address] [place] [address] ALPHA 1 GLOBULIN 0.3 g/dL Normal 0.1-0.4 [facility] Comment on above: Performed By: #### 1 3965-9, CBCA, FEPR, THYR, 6-4, 2131-, 2283-8, IMEL, SPE #### [facility] ([id number]) [address], [address] [place] [address] #### MTHFRS #### [facility] ([id number]) [address] [place] [address] ALPHA 2 GLOBULIN 0.8 g/dL Normal 0.4-1.1 [facility] Comment on above: Performed By: #### 1 3965-9, CBCA, FEPR, THYR, 6-4, 2131-9, 2283-8, IMEL, SPE #### [facility] ([id number]) [address], [address] [place] [address] #### MTHFRS #### [facility] ([id number]) [address] [place] [address] BETA GLOBULIN 0.8 g/dL Normal 0.5-1.2 [facility] Comment on above: Performed By: #### 1 3965-9, CBCA, FEPR, THYR, 2276-4, 2131-9, 4-8, IMEL, SPE #### [facility] ([id number]) [address], [address] [place] [address] #### MTHFRS #### [facility] ([id number]) [address] [place] [address] GAMMA GLOBULIN 0.7 g/dL Normal 0.5-1.6 [facility] Comment on above: Performed By: #### 1 3965-9, CBCA, FEPR, THYR, 2276-4, 2132-9, 2284-8, IMEL, SPE #### [facility] ([id number]) [address] [facility] [address], [address] [place] [address] #### MTHFRS #### [facility] ([id number]) [address] [place] [address] PROT. ELECTROPHORESIS INTERP Unremarkable protein distribution, no monoclonal bands. Normal [facility] Comment on above: Performed By: #### 1 3965-9, CBCA, FEPR, THYR, 2276-4, 2-9, 2284-8, IMEL, SPE #### [facility] ([id number]) [address] [facility] [facility] [address] [place] [address] #### MTHFRS #### [facility] ([id number]) [address] [place] [address] Protein [Mass/Vol] 6.5 g/dL Normal 6.0-8.0 [facility] Comment on above: Performed By: #### 1 3965-9, CBCA, FEPR, THYR, 2276-4, 2132-9, 2284-8, IMEL, SPE #### [facility] ([id number]) [address] [place] [address], [facility] [address] [place] [address] #### MTHFRS #### [facility] ([id number]) [address] [place] [address] THYROID PROFILEon 01-11-2024 Free T4 [Mass/Vol] 1.09 ng/dL Normal 0.61-1.60 [facility] Comment on above: Performed By: #### 1 3965-9, CBCA, FEPR, THYR, 2276-4, 2-9, 2284-8, IMEL, SPE #### [facility] ([id number]) [address], [address] [place] [address] #### MTHFRS #### [facility] ([id number]) [address] [place] [address] TSH 0.60 uIU/mL Normal 0.49-4.67 [facility] Comment on above: Performed By: #### 1 3965-9, CBCA, FEPR, THYR, 6-4, 2131-9, 4-8, IMEL, SPE #### [facility] ([id number]) [address] [facility] [facility], [address] [place] [address] #### MTHFRS #### [facility] ([id number]) [address] [place] [address] VITAMIN B12on 01-11-2024 Cobalamin (Vitamin B12) [Mass/Vol] 407 pg/mL Normal 180-914 [facility] Comment on above: Performed By: #### 1 3965-9, CBCA, FEPR, THYR, 6-4, 2-9, 4-8, IMEL, SPE #### [facility] ([id number]) [address], [address] [place] [address] #### MTHFRS #### [facility] ([id number]) [address] [place] [address] DEXA SCAN CENTRAL SKELETALon 12-06-2023 DEXA SCAN CENTRAL SKELETAL DEXA SCAN MADERA SKELETAL CLINICAL INFORMATION: Age-related osteoporosis without current [...] AM Normal [facility] CT Abdomen/Pelvis w + w/o Co ntraston [...] by Felix Dominguez on 12/07/2022 1159 Normal [facility] XR HAND LEFT (MIN 3 [...] Matt Cowart MD 11/07/22 Final result Normal [facility] XR HAND LEFT (MIN 3 VIEWS) [...] Matt Cowart MD 11/07/22 Final result Normal [facility] XR Chest 2 Views*on 09-10-20 XR [...] by Bartolome Monson on 09/10/2022 1507 Normal [facility] Complete Blood Count with Au to Diffon 12-11-2021 Basophils (Bld) [#/Vol] 0.07 10*3/uL Normal 0.00-0.20 [facility] Comment on above: Performed By: #### C MP, CBCAD #### [facility] [address] [place], [place] [id number] Basophils/100 WBC (Bld) 0.9 % Normal [facility] Comment on above: Performed By: #### C MP, CBCAD #### [facility] [address] [place], [place] [id number] Eosinophils (Bld) [#/Vol] 0.17 10*3/uL Normal 0.02-0.50 [facility] Comment on above: Performed By: #### C LG, CBCAD #### [facility] [address] [place], [place] [id number] Eosinophils/100 WBC (Bld) 2.3 % Normal [facility] Comment on above: Performed By: #### C LG, CBCAD #### [facility] [address] [place], [place] [id number] Erythrocyte distribution width (RBC) [Ratio] 16.4 % High 11.0-15.0 [facility] Comment on above: Performed By: #### C LG, CBCAD #### [facility] [address] [place], [place] [id number] Hematocrit (Bld) [Volume fraction] 42.9 % Normal 35.0-47.0 [facility] Comment on above: Performed By: #### C MP, CBCAD #### [facility] [address] [place], [place] [id number] Hemoglobin (Bld) [Mass/Vol] 13.5 g/dL Normal 11.6-15.5 [facility] Comment on above: Performed By: #### C MP, CBCAD #### [facility] [address] [place], [place] [id number] Lymphocytes (Bld) [#/Vol] 2.7 10*3/uL Normal 0.9-3.9 [facility] Comment on above: Performed By: #### C MP, CBCAD #### [facility] [address] [place], [place] [id number] Lymphocytes/100 WBC (Bld) 36.1 % Normal [facility] Comment on above: Performed By: #### C MP, CBCAD #### [facility] [address] [place], [place] [id number] MCH (RBC) [Entitic mass] 27.7 pg Normal 27.0-33.0 [facility] Comment on above: Performed By: #### C MP, CBCAD #### [facility] [address] [place], [place] [id number] MCHC (RBC) [Mass/Vol] 31.5 g/dL Low 32.0-36.0 [facility] Comment on above: Performed By: #### C MP, CBCAD #### [facility] [address] [place], [place] [id number] MCV (RBC) [Entitic vol] 88 fL Normal 80-100 N [facility] Comment on above: Performed By: #### C MP, CBCAD #### [facility] [address] [place], [place] [id number] Monocytes (Bld) [#/Vol] 0.8 10*3/uL Normal 0.2-0.9 [facility] Comment on above: Performed By: #### C MP, CBCAD #### [facility] [address] [place], [place] [id number] Monocytes/100 WBC (Bld) 10.8 % Normal N [facility] Comment on above: Performed By: #### C MP, CBCAD #### [facility] [address] [place], [place] [id number] Neutrophils (Bld) [#/Vol] 3.7 10*3/uL Normal 1.5-7.8 [facility] Comment on above: Performed By: #### C MP, CBCAD #### [facility] [address] [place], [place] [id number] Neutrophils/100 WBC (Bld) 49.2 % Normal [facility] Comment on above: Performed By: #### C MP, CBCAD #### [facility] [address] [place], [place] [id number] Platelet mean volume (Bld) [Entitic vol] 11.00 fL Normal 7.50-12.50 [facility] [employer] Comment on above: Performed By: #### C LG, CBCAD #### [facility] [address] [place], [place] [id number] Platelets (Bld) [#/Vol] 246 10*3/uL Normal 140-400 [facility] [employer] Comment on above: Performed By: #### C LG, CBCAD #### [facility] [address] [place], [place] [id number] RBC (Bld) [#/Vol] 4.88 10*6/uL Normal 3.90-5.20 [facility] Specialist Comment on above: Performed By: #### C LG, CBCAD #### [facility] [address] [place], [place] [id number] RDW-SD 53.1 fL High 37.0-50.0 [facility] Comment on above: Performed By: #### C LG, CBCAD #### [facility] [address] [place], [place] [id number] WBC (Bld) [#/Vol] 7.5 10*3/uL Normal 3.8-11.0 [facility] [employer] Comment on above: Performed By: #### C LG, CBCAD #### [facility] [address] [place], [place] [id number] Comprehensive Metabolic Pane [facility] 12-11-2021 Albumin [Mass/Vol] 4.2 g/dL Normal 3.6-5.1 [facility] [employer] Comment on above: Performed By: #### C LG, CBCAD #### [facility] [address] [place], [place] [id number] Albumin/Globulin [Mass ratio] 1.7 {ratio} Normal 1.0-2.5 [facility] Comment on above: Performed By: #### C LG, CBCAD #### [facility] [address] [place], [place] [id number] ALP [Catalytic activity/Vol] 71 U/L Normal 35-119 [facility] [employer] Comment on above: Performed By: #### C LG, CBCAD #### [facility] [address] [place], [place] [id number] ALT [Catalytic activity/Vol] 12 U/L Normal 6-33 [facility] Comment on above: Result Comment: 10/22 Female reference range changed. Performed By: #### C MP, CBCAD #### [facility] [address] [place], [place] [id number] Anion gap [Moles/Vol] 18 mmol/L Normal 12-20 [facility] Comment on above: Result Comment: Effe ctive 11/27/2019 reference range changed. Performed By: #### C MP, CBCAD #### [facility] [address] [place], [place] [id number] AST [Catalytic activity/Vol] 15 U/L Normal 9-34 [facility] Comment on above: Performed By: #### C MP, CBCAD #### [facility] [address] [place], [place] [id number] Bilirubin [Mass/Vol] 0.33 mg/dL Normal 0.30-1.20 [facility] Comment on above: Performed By: #### C MP, CBCAD #### [facility] [address] [place], [place] [id number] BUN/CREA 35 Ratio High 6-22 [facility] Comment on above: Performed By: #### C MP, CBCAD #### [facility] [address] [place], [place] [id number] Calcium [Mass/Vol] 9.4 mg/dL Normal 8.6-10.2 [facility] Comment on above: Performed By: #### C MP, CBCAD #### [facility] [address] [place], [place] [id number] Chloride [Moles/Vol] 106 mmol/L Normal 98-107 [facility] Comment on above: Performed By: #### C MP, CBCAD #### [facility] [address] [place], [place] [id number] CO2 [Moles/Vol] 24 mmol/L Normal 20-31 [facility] Comment on above: Performed By: #### C MP, CBCAD #### [facility] [address] [place], [place] [id number] Creatinine [Mass/Vol] 0.9 mg/dL Normal 0.6-1.4 [facility] Specialist Comment on above: Performed By: #### C MP, CBCAD #### [facility] [address] [place], [place] [id number] eGFRAA 70 mL/min/1.73m2 Normal >60 [facility] Specialist Comment on above: Performed By: #### C MP, CBCAD #### [facility] [address] [place], [place] [id number] eGFRNAA 58 mL/min/1.73m2 Low >60 [facility] Special[facility] Comment on above: Performed By: #### C MP, CBCAD #### [facility] [address] [place], [place] [id number] Globulin (S) [Mass/Vol] 2.5 g/dL Normal 1.9-3.7 N [facility] Specialist Comment on above: Performed By: #### C MP, CBCAD #### [facility] [address] [place], [place] [id number] Glucose [Mass/Vol] 84 mg/dL Normal 65-99 [facility] Comment on above: Result Comment: For FASTING Glucose --- ADA reference ranges: Normal 65-99 mg/dl Prediabetes 100-125 Diabetes >/= 126 Performed By: #### C MP, CBCAD #### [facility] [address] [place], [place] [id number] Potassium [Moles/Vol] 4.3 mmol/L Normal 3.5-5.5 [facility] [employer] [facility] Comment on above: Performed By: #### C MP, CBCAD #### [facility] [address] [place], [place] [id number] Protein [Mass/Vol] 6.7 g/dL Normal 6.1-8.1 [facility] [employer] Specialist Comment on above: Performed By: #### C MP, CBCAD #### [facility] [address] [place], [place] [id number] Sodium [Moles/Vol] 143 mmol/L Normal 135-146 [facility] [employer] Specialist Comment on above: Performed By: #### C MP, CBCAD #### [facility] [address] [place], [place] [id number] Urea nitrogen [Mass/Vol] 33 mg/dL High 7-25 [facility] [employer] Comment on above: Performed By: #### C MP, CBCAD #### [facility] [address] [place], [place] [id number] Calciumon 06-20-2019 Calcium [Mass/Vol] 10.0 mg/dL Normal 8.4-10.2 [facility] [place] Comment on above: Performed By: #### 1 030, 1035, 4500, 4510, 4520, 4581 #### [facility] Unless Otherwise Noted [address] [address] / COLA #4724/CLIA # [id number] Creatinineon 06-20-2019 Creatinine [Mass/Vol] 0.9 mg/dL Normal 0.5-1.0 [facility] Comment on above: Performed By: #### 1 030, 1035, 4500, 4510, 4520, 4581 #### [facility] Unless Otherwise Noted [address] [address] / [facility] #4724/CLIA # [id number] Creatinine [Mass/Vol] 74.8 Kg Normal [facility] Comment on above: Performed By: #### 1 030, 1035, 4500, 4510, 4520, 4581 #### [facility] Unless Otherwise Noted [address] [facility] [address] [place] [address] / [facility] #4724/CLIA # [id number] Creatinine [Mass/Vol] 64.8 ml/m1.73 Normal [facility] Comment on above: Performed By: #### 1 030, 1035, 4500, 4510, 4520, 4581 #### [facility] Unless Otherwise Noted [address] [place] [address] [address] / COL[facility] #4724/CLIA # [id number] Creatinine [Mass/Vol] 65.1 ml/m1.73 Normal [facility] Comment on above: Performed By: #### 1 030, 1035, 4500, 4510, 4520, 4581 #### [facility] Unless Otherwise Noted [address] [place] [id number] / [facility] #4724/CLIA # [id number] Creatinine [Mass/Vol] 78.7 ml/m1.73 Normal [facility] Comment on above: Performed By: #### 1 030, 1035, 4500, 4510, 4520, 4581 #### [facility] Unless Otherwise Noted [address] [place] [address] / [facility] #4724/CLIA # [id number] FT306-20-2019 FT3 2.80 pg/mL Normal 2.45-5.93 [facility] Comment on above: Performed By: #### 1 030, 1035, 4500, 4510, 4520, 4581 #### [facility] Unless Otherwise Noted [address] [address] / COLA #4724/CLIA # [id number] FT406-20-2019 Free T4 [Mass/Vol] 1.93 ng/dL Normal 0.78-2.44 [facility] Comment on above: Performed By: #### 1 030, 1035, 4500, 4510, 4520, 4581 #### [facility] Unless Otherwise Noted [address] [address] / COLA #4724/CLIA # [id number] TSHon 06-20-2019 TSH Qn 0.57 uIU/ml Normal 0.47-4.68 [facility] Comment on above: Performed By: #### 1 030, 1035, 4500, 4510, 4520, 4581 #### [facility] Unless Otherwise Noted [address] [facility] [address] [place] [address] / [facility] #4724/CLIA # [id number] VITAMIN D 25on 06-20-2019 VITAMIN D 25 51.5 ng/ml Normal 30.0-100.0 [facility] Comment on above: Result Comment: Defi cient <20 Insufficient 20-<30 Sufficient 30-100 Potiential Toxicity >100 Performed By: #### 1 030, 1035, 4500, 7150, 4520, 4581 #### [facility] Unless Otherwise Noted [address] [place] [address] / [facility] #4724/CLIA # [id number] Basic Metabolic Profon 05-06 (cont.) Normal [facility] Comment on above: Result Comment: Aver age GFR for 70 or more years old: 75 mL/min/1.73sq mChronic Kidney Disease: <60 mL/min/1.73sq mKidney failure: <15 mL/min/1.73sq meGFR calculated using average adult body mass. Additional eGFR calculator available at:[email or web address].Nexterra/multiple_crcl_2012.htmPerformed at [facility] [address] [facility]. [place], [place] [id number] [phone] Performed By: #### C DP, BMP ####[facility] [facility] [place] [address] Anion gap 14 mmol/L Normal 9-17 [facility] Comment on above: Performed By: #### C DP, BMP ####[facility] [place] [address] Calcium 9.6 mg/dL Normal 8.6-10.4 [facility] Comment on above: Performed By: #### C DP, BMP ####[facility] [place] [address] Chloride 106 mmol/L Normal 98-107 [facility] Comment on above: Performed By: #### C DP, BMP ####[facility] [place] [address] CO2 26 mmol/L Normal 20-31 [facility] Comment on above: Performed By: #### C DP, BMP ####[facility] [place] [address] Creatinine 0.91 mg/dL High 0.50-0.90 [facility] Comment on above: Performed By: #### C DP, BMP ####[facility] [facility] [place] [address] eGFR (non-black) mL/min/{1.73_m2} Normal >60 [facility] Comment on above: Performed By: #### C DP, BMP ####[facility] [facility] [place] [address] Glucose mass conc 99 mg/dL Normal 70-99 [facility] Comment on above: Performed By: #### C DP, BMP ####[facility] [facility] [place] [address] Potassium molar conc 4.2 mmol/L Normal 3.7-5.3 [facility] Comment on above: Performed By: #### C DP, BMP ####[facility] [place] [address] Sodium 146 mmol/L High 135-144 [facility] Comment on above: Performed By: #### C DP, BMP ####[facility] [place] [address] Urea nitrogen 21 mg/dL Normal 8-23 [facility] Comment on above: Performed By: #### C DP, BMP ####[facility] [place] [address] BUN/CRE Ratio NOT REPORTED Normal 9-20 [facility] Comment on above: Performed By: #### C DP, BMP ####[facility] [place] [address] Staging: NOT REPORTED Normal [facility] Comment on above: Performed By: #### C DP, BMP ####[facility] [place] [address] CBC with Diffon 05-06-2018 Abs. Basophil 0.10 k/uL Normal 0.0-0.2 [facility] Comment on above: Result Comment: Perf ormed at [facility] [address] [place] [address] Performed By: #### C DP, BMP ####[address] [address] Abs.Neutrophil (Seg) 4.00 k/uL Normal 1.3-9.1 [facility] Comment on above: Performed By: #### C DP, BMP ####[facility] [place] [address] Basophils/100 WBC Auto (Bld) 1 % Normal 0-2 [facility] Comment on above: Performed By: #### C DP, BMP ####[facility] [place] [address] Eosinophils 0.20 10*3/uL Normal 0.0-0.4 [facility] Comment on above: Performed By: #### C DP, BMP ####[facility] [place] [address] Eosinophils/100 leukocytes 2 % Normal 0-4 [facility] Comment on above: Performed By: #### C DP, BMP ####[facility] [place] [address] [id number] Erythrocyte distribution width Auto Ratio (RBC) 13.9 % Normal 11.5-14.9 [facility] Comment on above: Performed By: #### C DP, BMP ####[address] [address] Erythrocytes (RBC) 4.68 10*6/uL Normal 4.0-5.2 [facility] Comment on above: Performed By: #### C DP, BMP ####[address] [address] Hematocrit (HCT) 41.8 % Normal 36-46 [facility] Comment on above: Performed By: #### C DP, BMP ####[address] [address] Hemoglobin mass conc (Bld) 13.7 g/dL Normal 12.0-16.0 [facility] Comment on above: Performed By: #### C DP, BMP ####[address] [address] Lymphocytes 3.20 10*3/uL Normal 1.0-4.8 [facility] Comment on above: Performed By: #### C DP, BMP ####[address] [address] Lymphocytes/100 leukocytes 39 % Normal 24-44 [facility] Comment on above: Performed By: #### C DP, BMP ####[address] [place] [address] MCH 29.3 pg Normal 26-34 [facility] Comment on above: Performed By: #### C DP, BMP ####[facility] [place], [place] [address]jenna [place] [address] MCHC mass conc (RBC) 32.8 g/dL Normal 31-37 [facility] Comment on above: Performed By: #### C DP, BMP ####[facility] [place] [address] [place] [address] MCV 89.3 fL Normal 80-100 [facility] Comment on above: Performed By: #### C DP, BMP ####[facility] [place] [address] Monocytes 0.90 10*3/uL Normal 0.1-1.3 [facility] Comment on above: Performed By: #### C DP, BMP ####[facility] [place] [address] Monocytes/100 leukocytes 11 % High 1-7 [facility] Comment on above: Performed By: #### C DP, BMP ####[facility] [place] [address] Neutrophil (Seg) 47 % Normal 36-66 [facility] Comment on above: Performed By: #### C DP, BMP ####[facility] [place] [address] Platelet mean volume (PMV) 10.3 fL Normal 6.0-12.0 [facility] Comment on above: Performed By: #### C DP, BMP ####[facility] [place] [address] Platelets 232 10*3/uL Normal 150-450 [facility] Comment on above: Performed By: #### C DP, BMP ####[facility] [facility] [place] [address] WBC (Leukocytes) 8.4 10*3/uL Normal 3.5-11.0 [facility] Comment on above: Performed By: #### C DP, BMP ####[facility] [place] [address] Auto Diff Performed NOT REPORTED Normal [facility] Comment on above: Performed By: #### C DP, BMP ####[facility] [facility] [place] [address] Erythrocyte morphology NOT REPORTED Normal [facility] Comment on above: Performed By: #### C DP, BMP ####[facility] [facility] [place] [address] Erythrocytes (RBC) NOT REPORTED Normal [facility] Comment on above: Performed By: #### C DP, BMP ####[facility] [facility] [place] [address] Granulocytes/100 WBC (Bld) NOT REPORTED Normal 0.00-0.30 [facility] Comment on above: Performed By: #### C DP, BMP ####[facility] [facility] [place] [address] Immature granulocytes #/vol (Bld) NOT REPORTED Normal 0 [facility] Comment on above: Performed By: #### C DP, BMP ####[facility] [facility] [place] [address] Platelets NOT REPORTED Normal [facility] Comment on above: Performed By: #### C DP, BMP ####[facility] [place] [address].[place] [address] WBC Morphology NOT REPORTED Normal [facility] Comment on above: Performed By: #### C DP, BMP ####[facility] [place] [address] Vital Signs Date Time Vital Sign Value Performing Clinician Leyda nevarez 04-04-2024 11:29-0400 Body height 160 cm Mandi Hoover MD Work Phone: [facility] 04-04-2024 11:29-0400 Body mass index (BMI) [Ratio] 27.18 kg/m2 Mandi Hoover MD Work Phone: [facility] 04-04-2024 11:29-0400 Body temperature 97.7 [degF] Mandi Hoover MD Work Phone: [facility] 04-04-2024 11:29-0400 Body weight 69.6 kg Mandi Hoover MD Work Phone: [facility] 04-04-2024 11:29-0400 Diastolic blood pressure 65 mm[Hg] Mandi Hoover MD Work Phone: [facility] 04-04-2024 11:29-0400 Heart rate 80 /min Mandi Hoover MD Work Phone: [facility] 04-04-2024 11:29-0400 Respiratory rate 18 /min Mandi Hoover MD Work Phone: [facility] 04-04-2024 11:29-0400 SaO2% (BldA) [Mass fraction] 96 % Mandi Hoover MD Work Phone: [facility] 04-04-2024 11:29-0400 Systolic blood pressure 105 mm[Hg] Mandi Hoover MD Work Phone: [facility] 02-24-2024 12:02-0400 Body height 160 cm Ryan Dallas MD Work Phone: [facility] 02-24-2024 12:02-0400 Body mass index (BMI) [Ratio] 27.21 kg/m2 Ryan Dallas MD Work Phone: [facility] 02-24-2024 12:02-0400 Body weight 69.67 kg Ryan Dallas MD Work Phone: [facility] 02-24-2024 12:02-0400 Diastolic blood pressure 76 mm[Hg] Ryan Dallas MD Work Phone: [facility] 02-24-2024 12:02-0400 Heart rate 78 /min Ryan Dallas MD Work Phone: [facility] 02-24-2024 12:02-0400 Respiratory rate 16 /min Ryan Dallas MD Work Phone: [facility] 02-24-2024 12:02-0400 SaO2% (BldA) [Mass fraction] 94 % Ryan Dallas MD Work Phone: [facility] 02-24-2024 12:02-0400 Systolic blood pressure 147 mm[Hg] yRan Dallas MD Work Phone: [facility] 01-07-2024 10:29-0500 Body height 160 cm Yoanna Dorsey HISTOLOGY TECHNICIAN-DAIRY INSPECTOR Work Phone: [facility] 01-07-2024 10:29-0500 Body mass index (BMI) [Ratio] 27.63 kg/m2 Yoanna Dorsey HISTOLOGY TECHNICIAN-DAIRY INSPECTOR Work Phone: [facility] 01-07-2024 10:29-0500 Body weight 70.76 kg Yoanna Willian HISTOLOGY TECHNICIAN-DAIRY INSPECTOR Work Phone: [facility] 01-07-2024 10:29-0500 Diastolic blood pressure 78 mm[Hg] Yoanna Willian HISTOLOGY TECHNICIAN-DAIRY INSPECTOR Work Phone: [facility] 01-07-2024 10:29-0500 Heart rate 80 /min Yoanna Willian HISTOLOGY TECHNICIAN-DAIRY INSPECTOR Work Phone: [facility] 01-07-2024 10:29-0500 Systolic blood pressure 124 mm[Hg] Yoanna Dorsey HISTOLOGY TECHNICIAN-DAIRY INSPECTOR Work Phone: [facility] Encounters Encounter Date Encounter Type Care Provider Facility Start: 05-09-2024 Orders Only Mandi gambino MD Work Phone: [facility] Comment on above: Intracranial meningi brandon (HCC) (Primary Dx); Benign neoplasm of meninges (HCC) Start: 05-04-2024 End: 05-04-2024 ambulatory BIA CAO Not Available Start: 05-01-2024 End: 05-01-2024 ambulatory Adelfo Hansen MD Facility: [facility] Start: 04-05-2024 End: 04-05-2024 ambulatory BIA CAO Not Available Start: 04-04-2024 End: 04-04-2024 ambulatory MANDI HOOVER Facility:[facility] Start: 04-04-2024 End: 04-04-2024 Patient encounter procedure Mandi Hoover MD Work Phone: [facility] Comment on above: Intracranial meningi brandon (HCC) (Primary Dx); Sensorineural hearing loss (SNHL) of right ear, unspecified hearing status on contralateral side; Dizziness Start: 04-03-2024 End: 04-03-2024 ambulatory BIA CAO Not Available Start: 03-24-2024 Telephone encounter Neurology Provid er Neurology Comment on above: Received Outside [facility] (External referral to [facility] [place]/); triage; Nurse Triage Call; Appointment Start: 03-24-2024 End: 03-24-2024 ambulatory ILEANA CORTES [facility] Start: 03-16-2024 ambulatory BIA CAO [facility] Start: 03-13-2024 End: 03-13-2024 ambulatory Adelfo Hansen MD Facility:[facility] Start: 03-10-2024 End: 03-10-2024 ambulatory YOANNA DORSEY [facility] Start: 03-02-2024 End: 03-02-2024 ambulatory BIA CAO Not Available Start: 02-24-2024 End: 02-24-2024 Office outpatient visit 15 minutes Ryan Dallas MD Work Phone: [facility] Comment on above: Essential hypertensi on (Primary Dx); LVH (left ventricular hypertrophy); Mixed hyperlipidemia; Hypotension due to drugs Start: 02-22-2024 End: 02-22-2024 ambulatory BIA CAO Not Available Start: 02-15-2024 End: 02-15-2024 ambulatory BIA CAO Not Available Start: 02-11-2024 End: 02-12-2024 Emergency department patient visit JUAN TAMEZ [facility] Start: 02-10-2024 Orders Only Ryan aquino MD Work Phone: [facility] Comment on above: Essential hypertensi on Start: 02-09-2024 Refill Doris Hawkins RN [facility] Start: 02-07-2024 End: 02-07-2024 ambulatory [facility] Start: 01-18-2024 End: 01-18-2024 ambulatory RIA SNYDER Not Available Start: 01-12-2024 End: 01-12-2024 ambulatory RIA SNYDER Not Available Start: 01-11-2024 End: 01-12-2024 ambulatory [facility] Start: 01-10-2024 End: 01-10-2024 ambulatory Adelfo Hansen MD Facility: [facility] Start: 01-07-2024 End: 01-07-2024 ambulatory [facility] Start: 01-07-2024 End: 01-07-2024 Office outpatient visit 25 minutes [facility] HISTOLOGY TECHNICIAN-DAIRY INSPECTOR Work Phone: [facility] Comment on above: Migraine without aur a and without status migrainosus, not intractable (Primary Dx); Bilateral occipital neuralgia; Essential tremor; Cervicalgia; Trapezius muscle spasm; Balance problem; Psychophysiological insomnia; Polyneuropathy; Prediabetes; Essential (primary) hypertension; Abnormal level of blood mineral; Decreased hearing of both ears Start: 01-06-2024 End: 01-06-2024 ambulatory Ria Snyder FLAVOR TANK TENDER Work Phone: [facility] Comment on above: General weakness (Pr imary Dx); History of falling Start: 01-04-2024 Bamboo flowsheet Ria Masters ht FLAVOR TANK TENDER Work Phone: [facility] Start: 01-04-2024 Bamboo flowsheet Ria Masters ht FLAVOR TANK TENDER Work Phone: [facility] Start: 01-04-2024 End: 01-04-2024 ambulatory Ria Snyder FLAVOR TANK TENDER Work Phone: [facility] Comment on [...] Start: 12-23-2023 End: 12-23-2023 ambulatory Ria Snyder FLAVOR TANK TENDER Work Phone: [facility] Comment on above: General weakness (Pr imary Dx); History of falling Start: 12-21-2023 End: 12-21-2023 ambulatory RIA SNYDER Not Available Start: 12-16-2023 End: 12-16-2023 ambulatory RIA SNYDER Not Available Start: 12-13-2023 Refyuval aggarwal MD Work Phone: [facility] Start: 12-08-2023 End: 12-08-2023 ambulatory [facility]MER PETTIT Not Available Start: 12-07-2023 End: 12-07-2023 ambulatory SANTO GARCIA Not Available Start: 12-06-2023 End: 12-06-2023 ambulatory BIA CAO Not Available Start: 12-03-2023 End: 12-04-2023 ambulatory JOHN JOHNSON [facility] Start: 11-29-2023 End: 11-29-2023 ambulatory LALIT Guillermo [facility] Start: 11-23-2023 End: 11-23-2023 ambulatory BIA CAO Not Available Start: 11-11-2023 End: 11-11-2023 ambulatory ELMER PETTIT Not Available Start: 11-08-2023 End: 11-08-2023 ambulatory RIA SNYDER Not Available Start: 11-04-2023 End: 11-04-2023 ambulatory ELMER PETTIT Not Available Start: 10-22-2023 End: 10-22-2023 ambulatory BIA CAO Not Available Start: 09-06-2023 End: 09-06-2023 ambulatory Adelfo Hansen MD Facility: [facility] Start: 07-19-2023 End: 07-19-2023 ambulatory Adelfo Hansen MD Facility: [facility] Start: 07-05-2023 End: 07-05-2023 ambulatory Adelfo Hansen MD Facility: [facility] Start: 10-12-2022 End: 10-12-2022 ambulatory [facility] Start: 09-28-2022 End: 09-28-2022 ambulatory [facility] Start: 05-16-2018 End: 05-16-2018 Ambulatory AUDREY HORN [facility] Start: 05-06-2018 End: 05-11-2018 Ambulatory LENNY PEDRAZA [facility] Start: 05-02-2018 Patient encounter status Antonietta Johnson MD Work Phone: [facility] [employer] [facility] Work Phone: Procedures Date Procedure Procedure Detail Performing Clinician Start: 03-24-2024 Follow-up visit Follow-up ILEANA CORTES Start: 01-07-2024 Adult depression scr eening assessment Yoanna Dorsey HISTOLOGY TECHNICIAN-DAIRY INSPECTOR Work Phone: Start: 11-29-2023 Follow-up visit Follow-up LALIT LEACH Start: 04-23-2023 Adult depression scr eening assessment John Johnson MD Work Phone: Start: 05-16-2018 DISCHARGE PATIENT LENNY PEDRAZA Start: 05-16-2018 BEDREST LENNY PAIZ Start: 05-16-2018 Continuous pulse oximetry LENNY PEDRZAA Start: 05-16-2018 ENCOURAGE DEEP BREAT KELSEA AND COUGHING LENNY PEDRAZA Start: 05-16-2018 NOTIFY PHYSICIAN (SPECIFY) LENNY PEDRAZA Start: 05-16-2018 NURSING COMMUNICATION M FEDERICO MILO Start: 05-16-2018 INITIATE OXYGEN THER APY PROTOCOL LENNY PEDRAZA Start: 05-16-2018 INSERT PERIPHERAL IV MA JORDAN MILO Start: 05-16-2018 VITAL SIGNS LENNY PAIZ Start: 05-06-2018 Basic metabolic pane l calcium total LENNY PEDRAZA Start: 05-06-2018 Blood count complete auto&auto difrntl wbc LENNY PEDRAZA Plan of Treatment Date Care Activity Detail Author Start: 02-10-2027 Diabetes Screening Diabetes Screening [facility] Start: 02-10-2025 Adult BMI Screening Adult BMI Screening [facility] Start: 01-07-2025 Adult BMI Screening Adult BMI Screening [facility] Start: 01-07-2025 Depression Screening Depression Screening [facility] Start: 01-07-2025 Tobacco Screening Tobacco Screening [facility] Start: 12-06-2024 Medicare Annual Wellness (AWV) Medicare Annual Wellness (AWV) [facility] Start: 11-29-2024 Adult BMI Screening Adult BMI Screening [facility] Start: 11-29-2024 Tobacco Screening Tobacco Screening [facility] Start: 10-01-2024 Fall Risk Screening Fall Risk Screening [facility] Start: 08-28-2024 End: 06-08-2025 MR Brain WO and W contrast IV MRI BRAIN WO/W IVCON Radiology Routine Benign neoplasm of meninges (HCC) Expected: 08/28/2024 (Approximate), Expires: 06/08/2025 [facility] Work Phone: Comment on above: Expected: 08/28/2024 (Approximate), Expi res: 06/08/2025 Start: 07-23-2024 Influenza vaccination [facility] Start: 07-10-2024 End: 07-10-2024 Patient encounter procedure 07/10/2024 11:00 AM EDT Office Visit [facility] [address] [place] [address] Yoanna Dorsey, HISTOLOGY TECHNICIAN-DAIRY INSPECTOR [address] [place] [address] [facility] Start: 05-21-2024 Influenza vaccination Influenza Vaccine (#1) [facility] Comment on above: Postponed from 07/23/2023 (Patient Refus ed) Start: 04-23-2024 Depression Screening Depression Screening [facility] Start: 04-11-2024 End: 04-11-2024 Patient encounter procedure 04/11/2024 2:45 PM EDT Off ice Visit [facility] [address] [place] [address] John Johnson MD [address] [place] [address] [facility] Start: 04-04-2024 End: 04-04-2024 Patient encounter procedure 04/04/2024 10:30 AM EDT Office Visit [facility] [place] [address] [place] [address] Mandi Hoover MD [address] [place] [address] Time Frame: First available [facility] Comment on above: Time Frame: First available Start: 04-03-2024 End: 04-03-2024 Patient encounter procedure 04/03/2024 11:20 AM EDT Office Visit [facility] [address] [place] [address] Bia Cao MD [address] [place] [address] [facility] Start: 02-09-2024 End: 02-09-2024 Patient encounter procedure 02/09/2024 11:00 AM EDT Office Visit [facility] [address] [facility] [address] [place] [phone] Ryan Dallas MD [address] [facility] [place] [address] [facility] Start: 01-20-2024 End: 01-20-2024 ambulatory 01/20/2024 11:00 AM EST Treatment [facility] [address] [place] [phone] [facility] Pettit, PT [address] [place] [address] [facility] Start: 01-18-2024 End: 01-18-2024 ambulatory 01/18/2024 11:30 AM EST Treatment [facility] [address] [place] [phone] Ria Snyder, FLAVOR TANK TENDER [address] [place] [address] [facility] Start: 01-14-2024 End: 01-14-2024 ambulatory 01/14/2024 1:00 PM EST Treatment [facility] [address] [place] [phone] Ria Snyder, FLAVOR TANK TENDER [address] [place] [address] [facility] Start: 01-12-2024 End: 01-12-2024 ambulatory 01/12/2024 12:30 PM EST Treatment [facility] [address] [place] [phone] Ria Snyder, FLAVOR TANK TENDER [address] [place] [address] [facility] Start: 01-11-2024 End: 01-11-2024 Patient encounter procedure 01/11/2024 11:00 AM EST Office Visit [facility] [address] [place] [address] Yoanna Dorsey, HISTOLOGY TECHNICIAN-DAIRY INSPECTOR [address] [place] [address] [facility] Start: 01-06-2024 End: 01-06-2024 ambulatory [facility] Start: 01-04-2024 End: 01-04-2024 ambulatory 01/04/2024 11:30 AM EST Treatment [facility] [address] [place] [phone] Ria Snyder, FLAVOR TANK TENDER [address] [place] [address] [facility] Start: 12-31-2023 End: 12-31-2023 ambulatory 12/31/2023 10:00 AM EST Treatment [facility] [address] [place] [phone] Ria Snyder, FLAVOR TANK TENDER [address] [place] [address] [facility] Start: 12-30-2023 End: 12-30-2023 ambulatory 12/30/2023 11:30 AM EST Treatment [facility] [address] [place] [phone] [facility] Pettit, PT [address] [place] [address] [facility] Start: 12-28-2023 End: 12-28-2023 ambulatory 12/28/2023 11:30 AM EST Treatment [facility] [address] [place] [address] Ria Snyder, FLAVOR TANK TENDER [address] [place] [address] [facility] Start: 11-22-2023 Advance Directive Discussion Advance Directive Discussion [facility] Start: 11-22-2023 Behavioral Health Screening Behavioral Health Screening [facility] Start: 07-23-2023 COVID-19 Vaccine () COVID-19 Vaccine ( season) [facility] Start: 07-23-2023 Influenza vaccination Influenza Vaccine [facility] Start: 08-21-2021 DTaP,Tdap and Td Vaccines (2 - Td or Tdap) DTaP,Tdap and Td Vaccines (2 - Td or Tdap) [facility] Start: 08-22-2011 Urine microalbumin profile DTaP,Tdap,Td Vaccine (1 - Tdap) [facility] Start: 01-17-2010 Administration of varicella zoster vaccine Zoster (Shingles) Vaccine (2 of 3) [facility] Start: 2005 RSV Vaccine (1 - 1-dose 60+ series) RSV Vaccine (1 - 1-dose 60+ series) [facility] Start: 1995 Shingrix Vaccine (1 of 2) Shingrix Vaccine (1 of 2) [facility] Start: 1963 Adult BMI Follow Up Plan Adult BMI Follow Up Plan [facility] Start: 1963 Hepatitis C screening Hepatitis C Screening [facility] Start: 1945 Medicare Annual Wellness Visit Medicare Annual Wellness Visit [facility] End: 01-07-2025 CBC W Auto Differential panel - Blood CBC auto differential Lab Routine Essential tremor Balance problem Polyneuropathy 1 Occurrences starting 01/07/2024 until 01/07/2025 [facility] Comment on above: 1 Occurrences starting 01/07/2024 until 01/07/2025 End: 01-07-2025 Cyanocobalamin vitamin b-12 Vitamin B12 Lab Routine Balance problem Polyneuropathy 1 Occurrences starting 01/07/2024 until 01/07/2025 [facility]: 1 Occurrences starting 01/07/2024 until 01/07/2025 End: 01-07-2025 Ferritin [Mass/volume] in Serum or Plasma Ferritin Lab Routine Polyneuropathy Abnormal level of blood mineral 1 Occurrences starting 01/07/2024 until 01/07/2025 [facility] Comment on above: 1 Occurrences starting 01/07/2024 until 01/07/2025 End: 01-07-2025 Folate [Mass/volume] in Serum or Plasma Folate Serum Lab Routine Balance problem Polyneuropathy 1 Occurrences starting 01/07/2024 until 01/07/2025 [facility] Comment on above: 1 Occurrences starting 01/07/2024 until 01/07/2025 End: 01-07-2025 Hemoglobin A1c/Hemoglobin.total in Blood Hemoglobin A1c Lab Routine Balance problem Polyneuropathy Prediabetes 1 Occurrences starting 01/07/2024 until 01/07/2025 walkby Comment on above: 1 Occurrences starting 01/07/2024 until 01/07/2025 End: 01-07-2025 Homocysteine total Homocysteine total Lab Routine Balance problem Polyneuropathy Essential (primary) hypertension 1 Occurrences starting 01/07/2024 until 01/07/2025 [facility] Comment on above: 1 Occurrences starting 01/07/2024 until 01/07/2025 End: 01-07-2025 Immunoelectrophoresis for Therapy Monitoring Immunoelectrophoresis for Therapy Monitoring Lab Routine Balance problem Polyneuropathy 1 Occurrences starting 01/07/2024 until 01/07/2025 [facility] Comment on above: 1 Occurrences starting 01/07/2024 until 01/07/2025 End: 01-07-2025 Iron and TIBC Iron and TIBC Lab Routine Essential tremor Balance problem Polyneuropathy Abnormal level of blood mineral 1 Occurrences starting 01/07/2024 until 01/07/2025 [facility] Comment on above: 1 Occurrences starting 01/07/2024 until 01/07/2025 End: 01-07-2025 Methylenetetrahydrofolate reductase Methylenetetrahydrofolate reductase Lab Routine Balance problem Polyneuropathy 1 Occurrences starting 01/07/2024 until 01/07/2025 [facility]: 1 Occurrences starting 01/07/2024 until 01/07/2025 End: 01-07-2025 Methylmalonic acid screen Methylmalonic acid screen La b Routine Balance problem Polyneuropathy 1 Occurrences starting 01/07/2024 until 01/07/2025 [facility] Comment on above: 1 Occurrences starting 01/07/2024 until 01/07/2025 End: 01-07-2025 Protein electrophoresis, serum Protein electrophoresis, serum Lab Routine Balance problem Polyneuropathy 1 Occurrences starting 01/07/2024 until 01/07/2025 [facility] Comment on above: 1 Occurrences starting 01/07/2024 until 01/07/2025 End: 01-07-2025 Thyroid profile includes TSH FT4 Thyroid profile includes TSH FT4 Lab Routine Balance problem Polyneuropathy Prediabetes 1 Occurrences starting 01/07/2024 until 01/07/2025 [facility] Comment on above: 1 Occurrences starting 01/07/2024 until 01/07/2025 Immunizations Immunization Date Immunization Notes Care Provider [facility] 03-12-2021 COVID-19, mRNA, LNP- S, PF, 100mcg/0.5mL Dose John Johnson MD Work Phone: [facility] 03-11-2021 Moderna SARS-CoV-2 Vaccination Ria Snyder FLAVOR TANK TENDER Work Phone: [facility] 02-12-2021 COVID-19, mRNA, LNP- S, PF, 100mcg/0.5mL Dose John Johnson MD Work Phone: [facility] 02-11-2021 Moderna SARS-CoV-2 Vaccination Ria Snyder FLAVOR TANK TENDER Work Phone: [facility] 11-12-2020 pneumococcal conjuga te vaccine, 13 valent John Johnson MD Work Phone: [facility] 09-17-2020 influenza, high dose seasonal, preservative-free John Johnson MD Work Phone: [facility] 09-17-2020 Seasonal, quadrivale nt, recombinant, injectable influenza vaccine, preservative free John Johnson MD Work Phone: [facility] 09-17-2020 influenza virus vacc ine, unspecified formulation John Johnson MD Work Phone: [facility] 08-30-2019 Seasonal, quadrivale nt, recombinant, injectable influenza vaccine, preservative free John Johnson MD Work Phone: [facility] 08-29-2018 influenza, injectabl e, quadrivalent, preservative free John Johnson MD Work Phone: [facility] 08-22-2015 influenza, seasonal, injectable, preservative free Ria Snyder [employer] Work Phone: [facility] 08-13-2015 pneumococcal polysaccharide vaccine, 23 valent Ria Snyder [employer] Work Phone: [facility] 08-21-2011 tetanus and diphther ia toxoids, adsorbed, preservative free, for adult use (5 Lf of tetanus toxoid and 2 Lf of diphtheria toxoid) John Johnson MD Work Phone: [facility] 11-22-2009 zoster vaccine, live Juan Snyder [employer] Work Phone: [facility] 11-22-2009 zoster vaccine, unspecified formulation John Johnson MD Work Phone: [facility] Payers Date Payer Category Payer Private Health Insurance 2021 Medicare [id number] 2021 Medicare [id number] 2012 Medicare [id number] 1945 Unknown [id number] 2.16. 840.1.473712.3.579.2.175 -08-1945 Unknown [id number] 2.16. 840.1.486540.3.579.2.175 -08-194 Unknown [id number] 2.16.84 0.1.568930.3.579.2.1286 -08-1945 Unknown [id number] 2.16.8 40.1.261420.3.579.2.1286 -081945 Unknown [id number] 2.16.8 40.1.284566.3.579.2.1286 -08-1945 Unknown [id number] 2.16.8 40.1.219875.3.579.2.1286 -08-1945 Unknown [id number] 2.16.8 40.1.942248.3.579.2.1286 -1945 Unknown [id number] 2.16.8 40.1.996389.3.579.2.1286 -194 Unknown [id number] 2.16.8 40.1.783532.3.579.2.1286 -081945 Unknown [id number] 2.16.84 0.1.215540.3.579.2.1286 -1945 Unknown [id number] 2.16.8 40.1.971805.3.579.2.1286 -081945 Unknown [id number] 2.16.8 40.1.953340.3.579.2.1286 -081945 Unknown [id number] 2.16.8 40.1.405929.3.579.2.1286 -081945 Unknown [id number] 2.16.8 40.1.291381.3.579.2.1286 -08-1945 Unknown [id number] 2.16.84 0.1.494553.3.579.2.1259 -08-1945 Unknown [id number] 2.16.84 0.1.228551.3.579.2.1259 -08-1945 Unknown [id number] 2.16.84 0.1.415352.3.579.2.1259 -08-194 Unknown [id number] 2.16.84 0.1.738885.3.579.2.1259 -08-194 Unknown [id number] 2.16.84 0.1.629868.3.579.2.1259 -08-194 Unknown [id number] 2.16.84 0.1.630020.3.579.2.1259 -08-194 Unknown [id number] 2.16.84 0.1.699895.3.579.2.1259 -08-194 Unknown [id number] 2.16.84 0.1.270932.3.579.2.1259 -08194 Unknown [id number] 2.16.84 0.1.738686.3.579.2.1259 --194 Unknown [id number] 2.16.84 0.1.806949.3.579.2.1259 -08-194 Unknown [id number] 2.16.84 0.1.449698.3.579.2.1259 -08-194 Unknown [id number] 2.16.84 0.1.436779.3.579.2.1259 -08-194 Unknown [id number] 2.16.84 0.1.169278.3.579.2.1259 -08-194 Unknown [id number] 2.16.84 0.1.211659.3.579.2.1259 -08-194 Unknown [id number] 2.16.84 0.1.517403.3.579.2.1259 -08-194 Unknown [id number] 2.16.84 0.1.028516.3.579.2.1259 -08-194 Unknown [id number] 2.16.84 0.1.006737.3.579.2.1259 -08-194 Unknown [id number] 2.16.84 0.1.877333.3.579.2.1259 1945 Unknown [id number] 2.16.84 0.1.105142.3.579.2.1259 1945 Unknown [id number] 2.16.840 .1.357962.3.579.2.1259 1945 Unknown [id number] 2.16.840 .1.766630.3.579.2.1259 1945 Unknown [id number] 2.16.840 .1.828061.3.579.2.1259 1945 Unknown [id number] 2.16.840 .1.652477.3.579.2.1259 1945 Unknown [id number] 2.16.840 .1.614999.3.579.2.1259 1945 Unknown [id number] 2.16. 840.1.011949.3.579.2.196 1945 Unknown [id number] 2.16. 840.1.760547.3.579.2.196 1945 Unknown [id number] 2.16. 840.1.128921.3.579.2.196 1945 Unknown [id number] 2.16. 840.1.633490.3.579.2.196 1945 Unknown [id number] 2.16 840.1.713093.3.579.2.196 1945 Unknown [id number] 2.16 840.1.455405.3.579.2.196 1945 Unknown [id number] 2.16 840.1.809179.3.579.2.196 Social History Date Type Detail Facility Start: 01-27-2018 End: 11-29-2023 Tobacco smoking status NYIS Never smoked tobacco [facility] History of tobacco use Passive smoker [facility] Start: 01-27-2018 End: 11-29-2023 Tobacco use and exposure Smokeless tobacco non-user [facility] Start: 11-29-2023 End: 04-04-2024 Alcohol intake Current non-drinker of alcohol (finding) [facility] Start: 11-29-2023 End: 04-04-2024 Alcohol intake [facility] Start: 11-29-2023 End: 04-04-2024 Tobacco use panel [facility] Adolescent depressio n screening assessment 0 [facility] Start: 1945 Sex Assigned At Female [facility] Start: 05-22-2021 Gender identity Identifies as female gender (finding) [facility] Start: 05-22-2021 Sexual orientation Heterosexual (finding) [facility] Start: 12-07-2023 Alcohol intake Current drinker of alcohol (finding) [facility] Start: 05-04-2023 Alcohol Comment caffeine: occasional [facility] Start: 1945 Sex Assigned At Not on file [facility] Healthcare Medical Equipment Procedure Code Equipment Code Equipment Origin al Text Equipment Identifier Dates Patch Dura 1x1in Drmtrx-[place] + Clgn Rgnrt Membr Strl - [id number] Start: 07-03-2021 Goals Date Patient Goal Desired Activity /State Personal health goal Comment on above: Formatting of this n ote might be different from the original. Evaluation of progress towards goal: safe transition from hospital to home with support of her friends/neighbors Clinical Notes 12-13-2023 to 04-04-2024 Patient InstructionsJosette Sheppard MA - 04/04/2024 11:29 AM Jostete Aguilar MA - 04/04/2024 11:29 AM Mandi Tatum MD - 04/04/2024 10:30 AM EDTPatient Instructions Note Date & Type Note Facility 04-04-2024 Instructions Anson Ennis MD - 04/04/2024 12:35 PM EDT - obtain follow up MRI brain wwo in 6 months - please follow up with your cad designer (we do not think the etiology of your hearing loss is due to your meningioma) - our team will notify Dr. Bia Cao regarding these findings; we recommend investigating other etiologies of imbalance in Mrs. Ruth documented in this encounter [facility] 04-04-2024 Note HNO ID: [id number] Author: MANDI HOOVER MD Service: ? Author Type: Physician Type: Progress Notes Filed: 04/05/2024 17:50 Note Text: SECTION OF SKULL BASE SURGERY MINIMALLY INVASIVE CRANIAL BASE AND PITUITARY SURGERY PROGRAM Jessica Caro [facility] [place] [place], [facility] CC: Patient Care Team: Bia Cao as PCP ([facility]) Ileana Cortes MD as NI Referring Team [...] 6 months with a repeat MRI scan ([place] preference) and clinic visit with one of our skull base team advance practice providers ([place] preference). - follow up with cad designer for hearing loss which is unrelated to [...] Patient is accompanied by her granddaughter (her assembly line driver) and great grand daughter). The patient [...] contrast and shows a 1.2 cm R HIDE BUYER contrast-enhancing lesion concerning for either schwannoma or meningioma- no associated mass effect or edema. The patient takes ASA 81 mg daily for cardioprotection per her PCP. The patient has been using a cane for the last 5-6 years. The patient reports that ~6 weeks ago, she walked into her garage door and fell. The patient has not seen an cad designer or a vestibular therapist. Past Medical History: [...] mg (VYTORIN) 10-40 (more content not included)... [facility] 04-04-2024 Nurse Note Additional intake questions: Has the patient had fever, nausea, vomiting, diarrhea, constipation, fatigue for > 1 week? No Does the patient have a decreased appetite? No Does patient want to see a Produce Shipper? No (yes to any of above refer patient to schedulers for dietitian appointment) ) Does patient have any new or increased numbness or tingling of extremities? No Is patient interested in fertility information? No Does patient need any prescription refills? No Does patient have an advanced directive in place? Yes, no copy found in [facility] Patient referred to [facility] Electronically Signed By: Josette Sheppard MA [facility] 04-04-2024 Nurse Note Additional intake questions: Has the patient had fever, nausea, vomiting, diarrhea, constipation, fatigue for > 1 week? No Does the patient have a decreased appetite? No Does patient want to see a Produce Shipper? No (yes to any of above refer patient to schedulers for dietitian appointment) ) Does patient have any new or increased numbness or tingling of extremities? No Is patient interested in fertility information? No Does patient need any prescription refills? No Does patient have an advanced directive in place? Yes, no copy found in [facility] Patient referred to [facility] Electronically Signed By: Josette Sheppard MA documented in this encounter [facility] 04-04-2024 History of Presen t illness Narrative Images from the original note were not included. SECTION OF SKULL BASE SURGERY MINIMALLY INVASIVE CRANIAL BASE & PITUITARY SURGERY PROGRAM Jessica Jessicaanna Caro [facility] [place], [facility] CC: Patient Care Team: Bia Cao as PCP ([facility]) Ileana Cortes MD as NI Referring Team [...] 6 months with a repeat MRI scan ([place] preference) and clinic visit with one of our skull base team advance practice providers ([place] preference). - follow up with cad designer for hearing loss which is unrelated to [...] Patient is accompanied by her granddaughter (her assembly line driver) and great grand daughter). The patient [...] contrast and shows a 1.2 cm R HIDE BUYER contrast-enhancing lesion concerning for either schwannoma or meningioma- no associated mass effect or edema. The patient takes ASA 81 mg daily for cardioprotection per her PCP. The patient has been using a cane for the last 5-6 years. The patient reports that ~6 weeks ago, she walked into her garage door and fell. The patient has not seen an cad designer or a vestibular therapist. 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 documented in this encounter [facility] 03-28-2024 Telephone encounter Note Called patient to schedule an appointment. No ans/left message to call the office back. Appointment scheduled: 04/04/2024 10:30 AM (Arrive by 10:15 AM) Mandi Hoover MD [facility] [place] RAMAN Alonso [facility] 03-28-2024 Miscellaneous Notes Called patient to schedule an appointment. No ans/left message to call the office back. Appointment scheduled: 04/04/2024 10:30 AM (Arrive by 10:15 AM) Mandi Hoover MD [facility] Brain Tumor [place] RAMAN Alonso Time Frame: First available Provider: Kiko Landrum Soni Referring: Ileana Cortes MD Images to be requested from [facility] Dx: Right CPA mass Patient: Angela Ruth Address: Angela Ruth [id number] [place] [id number] Per Triage: HISTORY OF PRESENT ILLNESS Angela [...] extracranial soft tissues are unremarkable. Vanesa Morgan APRN.MAHENDRA March 28, 2024 Referral source: Ileana Cortes MD ([facility]) Reason for visit: consideration of gamma knife for 1.2 cm enhancing lesion at right cerebelloponitine angle with leading differential including vestibular schwannoma and meningioma External records: Sent with referral and pulled from [facility] Triage: Required, forwarded to [facility] by telephone encounter sent to [facility] Scheduling Triage. Financial clearance: Not required to schedule documented in this encounter [facility] 03-28-2024 Telephone encounter Note Time Frame: First available Provider: Kiko Landrum Soni Referring: Ileana Cortes MD Images to be requested from [facility] Dx: Right CPA mass Patient: Angela Ruth Address: Angela Ruth [id number] [place] [address] [place] [id number] Per Triage: HISTORY OF PRESENT ILLNESS Angela [...] extracranial soft tissues are unremarkable. Vanesa Morgan APRN.DAIRY INSPECTOR March 28, 2024 [facility] 03-24-2024 Telephone encounter Note Referral source: Ileana Cortes MD ([facility]) Reason for visit: consideration of gamma knife for 1.2 cm enhancing lesion at right cerebelloponitine angle with leading differential including vestibular schwannoma and meningioma External records: Sent with referral and pulled from [facility] Triage: Required, forwarded to [facility] by telephone encounter sent to [facility] Scheduling Triage. Financial clearance: Not required to schedule [facility] 02-24-2024 History of Presen t illness [...] Breast disorder 4 biopsies Bronchitis 01/01/2017 Cancer ([facility]) Basal cell Carpal tunnel syndrome Cataract [...] 07/07/2018 Performed by Lalit Leach MD at [facility] ENDOSCOPY COSMETIC SURGERY 1984 DISCECTOMY 1989 Partial L4-5 EGD 2001 EYE SURGERY 2014 FOOT SURGERY 2009 Reattachment of tendon left foot with bone graft HIP SURGERY 2003 Excision of bursa left hip HYSTERECTOMY 1983 INJECTION BLOCK EPIDURAL STEROID LUMBAR/SACRAL Left L 5,1 NR Left 12/20/2020 Performed by Shubham Clifton MD at [facility] INJECTION BLOCK NERVE MEDIAL BRANCH right C 4/5,5/6 Right 05/22/2022 Performed by Shubham Clifton MD at [facility] INJECTION BLOCK NERVE MEDIAL BRANCH right C 4/5,5/6 Right 04/17/2022 Performed by Shubham Clifton MD at [facility] CAUDAL EPIDURAL WITH CATHETER, STEROID N/A 03/07/2018 Performed by Shubham Clifton MD at [facility] LARGE JOINT BURSA: bilat hip Bilateral 12/10/2017 Performed by Shubham Clifton MD at [facility] MEDIAL BRANCH NERVE BLOCK Bilateral L 4/5, 5/1 Bilateral 06/28/2017 Performed by Shubham Clifton MD at [facility] MEDIAL BRANCH NERVE BLOCK Right L 2/3, 3/4 Right 12/08/2019 Performed by Shubham Clifton MD at [facility] MEDIAL BRANCH NERVE BLOCK RIGHT L23 34 Right 01/19/2020 Performed by Shubham Clifton MD at [facility] SI JOINT Bilateral 04/09/2017 Performed by Shubham Clifton MD at [facility] SI JOINT Bilateral SI Joint Bilateral 05/31/2020 Performed by Shubham Clifton MD at [facility] SI JOINT Left SI JOint Left 01/06/2019 Performed by Shubham Clifton MD at [facility] SI JOINT Right SI Joint Right 06/09/2019 Performed by Shubham Clifton MD at [facility] SPINE TRANSFORAMINAL Left L 4, 5 NR Left 09/24/2017 Performed by Shubham Clifton MD at [facility] INJECTION SPINE TRANSFORAMINAL Left L 5,1 Nroot Left 01/08/2023 Performed by Shubham Clifton MD at [facility] INJECTION SPINE TRANSFORAMINAL Right L 5,1 Nroot Right 11/27/2022 Performed by Shubham Clifton MD at [facility] STEROID EPI 1 WITH SEDATION Left 5,1 NR Left 05/08/2019 Performed by Shubham Clifton MD at [facility] KNEE ARTHROSCOPY 2010, 2013 KNEE SURGERY 2010 2013 Arthroscopy bilateral/repair meniscus right X2, left X1 LAMINECTOMY LUMBAR FORAMENOTOMY MULTI LEVEL L1-2 RIGHT/L2-3 BILATERAL/LUMBAR DRAIN INSERTION N/A 07/03/2021 Performed by Ileana Cortes MD at [facility] LAPAROTOMY OOPHERECTOMY Bilateral 1984 LUMBAR DISCECTOMY LUMBAR FUSION 2009 L3-5 LUMBAR LAMINECTOMY MICRO LUMBAR DISCECTOMY L5-S1/ FORAMINOTOMY L5-S1 Left 01/14/2017 Performed by Ileana Cortes MD at [facility] OOPHORECTOMY 1983 OTHER SURGICAL HISTORY Knee Arthroscopy With Medial Meniscus Repair OTHER SURGICAL HISTORY Spinal Diskectomy RADIO FREQUENCY ABLATION Left L 4/5, 5/1 Left 12/02/2018 Performed by Shubham Clifton MD at [facility] RADIO FREQUENCY ABLATION Left L 4/5, 5/1 Left 07/30/2017 Performed by Shubham Clifton MD at [facility] RADIO FREQUENCY ABLATION Left SI joint Left 03/31/2019 Performed by Shubham Clifton MD at [facility] RADIO FREQUENCY ABLATION Right L2/3, 3/4 Right 03/29/2020 Performed by Shubham Clifton MD at [facility] RADIOFREQUENCY ABLATION SPINAL Left Si joint Left 05/07/2017 Performed by Shubham Clifton MD at [facility] RADIOFREQUENCY ABLATION SPINAL Right C 4/5,5/6 Right 06/26/2022 Performed by Shubham Clifton MD at [facility] RADIOFREQUENCY ABLATION SPINAL RIGHT SI JOINT Right 05/21/2017 Performed by Shubham Clifton MD at [facility] RELEASE CARPAL TUNNEL Left 11/04/2021 Performed by Ileana Cortes MD at [facility] [...] mouth in the morning., Disp: , Rfl: hyzlhyj-dasujrjbldvwh-mifgvefd (EXCEDRIN MIGRAINE) 250-250-65 mg per tablet, Take 1 tablet by mouth every 6 (six) hours as needed for headaches., Disp: , Rfl: atorvastatin (LIPITOR) 40 mg tablet, Take 1 tablet (40 mg total) by mouth in the morning., Disp: , Rfl: buprenorphine (BUTRANS) 7.5 mcg/hour patch weekly, Place 1 patch on the skin once a week., Disp: , Rfl: jiudqrjifj-rjzmgwfjikfxb-vxdl (ESGIC) 50-325-40 mg per tablet, Take 1 [...] (FOSAMAX) 35 mg tablet Dose adjustment pediatric xnusyrra-trjj-xmb (flintstones complete) tablet,chewable Duplicate Listing Total time spent was 30 minutes which did not include gcfa-fk-wwzm contact with the patient: Preparing to see the patient (e.g., review of tests) Obtaining and/or reviewing separately obtained history Referring and communicating with other health healthcare administrator (not separately reported) Documenting clinical information in the electronic or other health record Independently interpreting results (not separately reported) and communicating results to the patient/family/caregiver The note was completed using EMR. Every effort was made to ensure accuracy; however, inadvertent computerized clinical professor errors may be present. CARDIOVASCULAR STUDIES: EKG: No results found. ECHO: No results found. Stress Test: No results found. Cath: No results found. Device: Other: RYAN DALLAS MD documented in this encounter [facility] 02-09-2024 Miscellaneous Notes Patient called and stated [...] Modules accepted: Orders documented in this encounter [facility] 02-09-2024 Note Addended by: Anna HAWKINS on: 02/10/2024 12:55 PM Modules accepted: Orders [facility] 02-09-2024 Telephone encounter Note Patient called and stated her bp has been elevated. She c/o Headache. 184/92, 224/95 217/93 she took an extra 50mg hydralazine as you have directed PRN and bp 146/78. Please advise going forward. [facility] 02-09-2024 Telephone encounter Note Increase hydralazine to 100 mg twice a day [facility] 02-09-2024 Telephone encounter Note I left patient a voicemail to call me back to verify the dose she is taking now of hydralazine. [facility] 02-09-2024 Telephone encounter Note I spoke to patient and she stated she is taking hydralazine 100mg daily. She is reluctant to try BID as it previously caused hypotension. Patient will try and then keep a bp log. [facility] 01-07-2024 History of Presen t illness [...] (migraines) Inderal (tremors) Gabapentin 200 mg nightly [place] PRN Occipital nerve blocks (last 03/2021) Tizanidine [...] Breast disorder 4 biopsies Bronchitis 01/01/2017 Cancer ([facility]) Basal cell Carpal tunnel syndrome Cataract Chronic [...] Date ADENOIDECTOMY 1952 APPENDECTOMY 1965 ARM SURGERY 2018. BACK SURGERY Upper Back Surgery BREAST BIOPSY 1979, 1999 BREAST SURGERY 1981 2002 Biopsy four times CHOLECYSTECTOMY 2001 COLONOSCOPY w/ bx N/A 07/07/2018 Performed by Lalit Leach MD at [facility] ENDOSCOPY COSMETIC SURGERY 1984 DISCECTOMY 1989 Partial L4-5 EGD 2001 EYE SURGERY 2014 FOOT SURGERY 2009 Reattachment of tendon left foot with bone graft HIP SURGERY 2003 Excision of bursa left hip HYSTERECTOMY 1983 INJECTION BLOCK EPIDURAL STEROID LUMBAR/SACRAL Left L 5,1 NR Left 12/20/2020 Performed by Shubham Clifton MD at [facility] INJECTION BLOCK NERVE MEDIAL BRANCH right C 4/5,5/6 Right 05/22/2022 Performed by Shubham Clifton MD at [facility] INJECTION BLOCK NERVE MEDIAL BRANCH right C 4/5,5/6 Right 04/17/2022 Performed by Shubham Clifton MD at [facility] INJECTION CAUDAL EPIDURAL WITH CATHETER, STEROID N/A 03/07/2018 Performed by Shubham Clifton MD at [facility] INJECTION LARGE JOINT BURSA: bilat hip Bilateral 12/10/2017 Performed by Shubham Clifton MD at [facility] INJECTION MEDIAL BRANCH NERVE BLOCK Bilateral L 4/5, 5/1 Bilateral 06/28/2017 Performed by Shubham Clifton MD at [facility] INJECTION MEDIAL BRANCH NERVE BLOCK Right L 2/3, 3/4 Right 12/08/2019 Performed by Shubham Clifton MD at [facility] INJECTION MEDIAL BRANCH NERVE BLOCK RIGHT L23 34 Right 01/19/2020 Performed by Shubham Clifton MD at [facility] INJECTION SI JOINT Bilateral 04/09/2017 Performed by Shubham Clifton MD at [facility] INJECTION SI JOINT Bilateral SI Joint Bilateral 05/31/2020 Performed by Shubham Clifton MD at [facility] INJECTION SI JOINT Left SI JOint Left 01/06/2019 Performed by Shubham Clifton MD at [facility] INJECTION SI JOINT Right SI Joint Right 06/09/2019 Performed by Shubham Clifton MD at [facility] INJECTION SPINE TRANSFORAMINAL Left L 4, 5 NR Left 09/24/2017 Performed by Shubham Clifton MD at [facility] INJECTION SPINE TRANSFORAMINAL Left L 5,1 Nroot Left 01/08/2023 Performed by Shubham Clifton MD at [facility] INJECTION SPINE TRANSFORAMINAL Right L 5,1 Nroot Right 11/27/2022 Performed by Shubham Clifton MD at [facility] INJECTION STEROID EPI 1 WITH SEDATION Left 5,1 NR Left 05/08/2019 Performed by Shubham Clifton MD at [facility] KNEE ARTHROSCOPY 2010, 2013 KNEE SURGERY 2010 2013 Arthroscopy bilateral/repair meniscus right X2, left X1 LAMINECTOMY LUMBAR FORAMENOTOMY MULTI LEVEL L1-2 RIGHT/L2-3 BILATERAL/LUMBAR DRAIN INSERTION N/A 07/03/2021 Performed by Ileana Cortes MD at [facility] LAPAROTOMY OOPHERECTOMY Bilateral 1984 LUMBAR DISCECTOMY LUMBAR FUSION 2009 L3-5 LUMBAR LAMINECTOMY MICRO LUMBAR DISCECTOMY L5-S1/ FORAMINOTOMY L5-S1 Left 01/14/2017 Performed by Ileana Cortes MD at [facility] OOPHORECTOMY 1982 OTHER SURGICAL HISTORY Knee Arthroscopy With Medial Meniscus Repair OTHER SURGICAL HISTORY Spinal Diskectomy RADIO FREQUENCY ABLATION Left L 4/5, 5/1 Left 12/02/2018 Performed by Shubham Clifton MD at [facility] RADIO FREQUENCY ABLATION Left L 4/5, 5/1 Left 07/30/2017 Performed by Shubham Clifton MD at [facility] RADIO FREQUENCY ABLATION Left SI joint Left 03/31/2019 Performed by Shubham Clifton MD at [facility] RADIO FREQUENCY ABLATION Right L2/3, 3/4 Right 03/29/2020 Performed by Shubham Clifton MD at [facility] RADIOFREQUENCY ABLATION SPINAL Left Si joint Left 05/07/2017 Performed by Shubham Clifton MD at [facility] RADIOFREQUENCY ABLATION SPINAL Right C 4/5,5/6 Right 06/26/2022 Performed by Shubham Clifton MD at [facility] RADIOFREQUENCY ABLATION SPINAL RIGHT SI JOINT Right 05/21/2017 Performed by Shubham Clifton MD at [facility] RELEASE CARPAL TUNNEL Left 11/04/2021 Performed by Ileana Cortes MD at [facility] SHOULDER SURGERY 2012 Right rotator cuff SKIN BIOPSY 2000 SPINE SURGERY 1990,2006,2017, 2020 STEROID INJECTION KNEE Right 04/2017 SYNVISC [...] mg total) by mouth in the morning. mktwycv-npgdynpexhzzo-wtcgheuh (EXCEDRIN MIGRAINE) 250-250-65 mg per tablet Take 1 tablet by mouth every 6 (six) hours as needed for headaches. atorvastatin (LIPITOR) 40 mg tablet Take 1 tablet (40 mg total) by mouth in the morning. buprenorphine (BUTRANS) 7.5 mcg/hour patch weekly Place 1 patch on the skin once a week. aaqmmrxikp-svhdpwosplhmn-hlnb (ESGIC) 50-325-40 mg per tablet Take 1 [...] Referring and communicating with other health healthcare administrator (not separately reported) Documenting clinical information in the electronic or other health record Independently interpreting results (not separately reported) and communicating results to the patient/family/caregiver Care coordination (not separately reported) - Yoanna Dorsey DNP, APRN-CNP 01/07/24 10:53 AM [facility] 01/07/24 1053 documented in this encounter [facility] [employer] [facility] 01-07-2024 Instructions CHACE Rayo - 01/07/2024 10:30 [...] earlier if needed. documented in this encounter [facility] 12-13-2023 Miscellaneous Notes Okay to sign and send documented in this encounter [facility] 12-13-2023 Telephone encounter Note Okay to sign and send [facility] Evaluation note Diagnosis General weakness- Primary Other malaise and fatigue History of falling documented in this encounter [facility]* Diagnosis Mixed hyperlipidemia (CMS/HCC)- Primary Mixed hyperlipidemia Stress incontinence of urine documented in this encounter [facility]* Diagnosis General weakness- Primary Other malaise and fatigue History of falling documented in this encounter [facility]* Diagnosis General weakness- Primary Other malaise and fatigue History of falling documented in this encounter [facility]* Diagnosis Migraine without aura and [...] of both ears [facility] Diagnosis Essential hypertension Unspecified essential hypertension [facility] Diagnosis Essential hypertension Unspecified essential hypertension documented [facility] Diagnosis Essential hypertension- Primary Unspecified essential hypertension LVH (left ventricular hypertrophy) Cardiomegaly Mixed hyperlipidemia Hypotension due to drugs Other iatrogenic hypotension documented [facility]* Diagnosis Brain mass [G93.89]- Primary Unspecified condition of brain [facility] Diagnosis Intracranial meningioma (HCC)- Primary Benign neoplasm of cerebral meninges Sensorineural hearing loss (SNHL) of right ear, unspecified hearing status on contralateral side Dizziness Dizziness and giddiness documented in this encounter [facility] Diagnosis Intracranial meningioma (HCC)- Primary Benign neoplasm of cerebral meninges Benign neoplasm of meninges (HCC) Benign neoplasm of cerebral meninges documented in this encounter [facility]ructionsNot on filedocumented in this [facility]InstructionsNot on filedocumented in this encounterProParkview Health SystemInstructionsNot on filedocumented in this encounterProParkview Health SystemInstructionsNot on filedocumented in this encounterProParkview [facility] System Summary Purpose Family History No Family History Records FoundNo Family History Records FoundNo Family History Records FoundNo Family History Records FoundNo Family History Records FoundNo Family History Records FoundNo Family History Records FoundNo Family History Records FoundNo Family History Records FoundNo Family History Records Found Advance Directives No Advanced Directives Records FoundDocuments on File Type Date Recorded Patient 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 Durable Power of Artist Color Separation 07/16/2021 3:45 PM Living Will 07/16/2021 3:40 [...] Documents on File Type Date Recorded Patient 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 Durable Power of Artist Color Separation 07/16/2021 3:45 PM Living Will 07/16/2021 3:40 [...] ears Procedures Hearing Evaluation (Audiology) Yoanna Dorsey, HISTOLOGY TECHNICIAN-DAIRY INSPECTOR [address] [place] [address] Referral ID Status Reason Start Date Expiration Date V isits Requested Visits Authorized [id number] Pending Review 01/07/2024 01/06/2025 1 1 Specialty Diagnoses / Procedures Referred By Violette t Referred To Contact MR IMAGING Diagnoses Benign neoplasm of meninges (HCC) Procedures MRI BRAIN WO/W IVCON MRI BRAIN BRAIN STEM W/O W/CONTRAST MATERIAL Mandi Hoover MD [address] [place] [address] [place] [address] Referral ID Status Reason Start Date Expiration Date Visits Requested Visits Authorized [id number] Pending Review Auto-Generat ed Referral 08/28/2024 06/08/2025 1 1 Additional Source Comments INFORMATION SOURCE (unrecogn ized section and content) DATE CREATED AUTHOR 05/16/[address] [facility] DATE CREATED AUTHOR AUTHOR'S ORGANIZ ATION 06/21/2019 [facility] DATE CREATED AUTHOR AUTHOR'S ORGANIZ ATION 11/13/2022 [facility] DATE CREATED AUTHOR AUTHOR'S ORGANIZ ATION 12/07/2022 [facility] DATE CREATED AUTHOR AUTHOR'S ORGANIZ ATION 12/04/2023 [place] DATE CREATED AUTHOR AUTHOR'S ORGANIZ ATION 02/13/2024 [facility] DATE CREATED AUTHOR AUTHOR'S ORGANIZ ATION 03/25/2024 [facility] DATE CREATED AUTHOR AUTHOR'S ORGANIZ ATION 04/08/2024 [facility] DATE CREATED AUTHOR AUTHOR'S ORGANIZ ATION 05/05/2024 [facility] DATE CREATED AUTHOR AUTHOR'S ORGANIZ ATION 05/10/2024 [facility] Reason for Visit (unrecogniz ed section and content) Reason Onset Date Comments Med Refill 12/13/2023 Specialty Diagnoses / Procedures Referred By Violette t Referred To Contact Physical Therapy Diagnoses Muscle weakness (generalized) Procedures TREATMENT Bia Cao MD [address] [place] [address] Elmer Pettit, PT [address] [place] [address] Referral ID Status Reason Start Date Expiration Date V isits Requested Visits Authorized [id number] Authorized 12/08/2023 06/05/2024 99 99 Reason Comments Med Refill Reason Comments Blood Pressure Check Reason Comments Received Outside Medical Records Externa l referral to Neu[facility] [place] triage Nurse Triage Call Appointment Reason Comments Consult Care Teams (unrecognized sec tion and content) Engine Specialist Relationship Specialty Start Date End Date Bia Cao MD [address] [place] [address] PCP - General Family Medicine 02/05/23 Engine Specialist Relationship Specialty Start Date End Date Jacob Viveros PCP - [employer] 11/22/22 Bia Cao MD [address] [place] [address] PCP - General Family Medicine 04/29/23 Engine Specialist Relationship Specialty Start Date End Date Jacob Viveros PCP - [employer] 11/22/22 Bia Cao MD [address] [place] [address] PCP - General Family Medicine 04/29/23 Engine Specialist Relationship Specialty Start Date End Date Jacob Viveros PCP - [employer] 11/22/22 Bia Cao MD [address] [place] [address] PCP - General Family Medicine 04/29/23 Engine Specialist Relationship Specialty Start Date End Date Jacob Viveros PCP - [employer] 11/22/22 Bia Cao MD [address] [place] [address] PCP - General Family Medicine 04/29/23 Engine Specialist Relationship Specialty Start Date End Date Jacob Viveros PCP - [employer] 11/22/22 Bia Cao MD [address] [facility] [place] [address] PCP - General Family Medicine 04/29/23 Engine Specialist Relationship Specialty Start Date End Date Jacob Viveros PCP - [employer] 11/22/22 Bia Cao MD [address] [facility] [place] [address] PCP - General Family Medicine 04/29/23 Engine Specialist Relationship Specialty Start Date End Date Bia Cao MD [address] [facility] [place] [address] PCP - General Family Medicine 02/05/23 Engine Specialist Relationship Specialty Start Date End Date Bia Cao MD [address] [facility] [place] [address] PCP - General Family Medicine 02/05/23 Engine Specialist Relationship Specialty Start Date End Date Bia Cao MD [address] [facility] [place] [address] PCP - General Family Medicine 02/05/23 Engine Specialist Relationship Specialty Start Date End Date Bia Cao MD [address] [facility] [place] [address] PCP - General Family Medicine 02/05/23 Engine Specialist Relationship Specialty Start Date End Date (Hist), No Pcp PCP - General 11/04/17 Ileana Cortes MD [address] [facility] [address] [place], [place] [id number] [place] Referring Team Neurosurgery 03/24/24 Engine Specialist Relationship Specialty Start Date End Date (Hist), No Pcp PCP - General 11/04/17 Ileana Cortes MD [address] [facility] [address] [place], [place] [phone] NI Referring Team Neurosurgery 03/24/24 Engine Specialist Relationship Specialty Start Date End Date (Hist), No Pcp PCP - General 11/04/17 Ileana Cortes MD [address] [facility] [address] [place], [place] [phone] [place] Referring Team Neurosurgery 03/24/24 Source Comments (unrecognize d section and content) In the event this informatio n is protected by the Federal Confidentiality of Alcohol and Drug Abuse Patient Records regulations: The Federal rules restrict any use of the information to criminally investigate or prosecute any alcohol or drug abuse patient.[facility] the event this information is protected by the Federal Confidentiality of Alcohol and Drug Abuse Patient Records regulations: The Federal rules restrict any use of the information to criminally investigate or prosecute any alcohol or drug abuse patient.[facility] the event this information is protected by the Federal Confidentiality of Alcohol and Drug Abuse Patient Records regulations: The Federal rules restrict any use of the information to criminally investigate or prosecute any alcohol or drug abuse patient.[facility] FOR RECORDS PERTAINING TO PATIENTS WHO [...] BE BASED ON THE PRIMARY CLINICAL RECORDS. [facility]. provides no warranty or guarantee of the accuracy or completeness of information in this document.
--- NOTE | 2024-06-22 12:09 | P.CN_ITS ---
Consult Note: HPI Data of Consult Patient: known to practice within the last 3 years Consult date: 05/01/24 Requesting Physician: Nisa Galarza NP Primary Care Provider: TRUE DAVIS Consult Narrative Reason for consult: low back and hip pain Narrative: Angela Ruth a pleasant 78 year old female presents for evaluation and management of chronic low back and right hip pain. hx of lumbar surgery unknown levels laminectomy and fusion L3-5. Patient reporting moderate to severe low back pain with radiation into right leg. Pain today 3/10 increasing to 9/10 with standing walking and by end of day. Patient reports hx of lumbar RFAs that helped for a few months. Patient finds mild benefit from current medication nasim men without side effects. cc:: CC: Nisa Galarza NP Review of Systems ROS Status of ROS 10 or more systems reviewed and unremark able except as noted in history and below Musculoskeletal Reports: back pain, extremity pain and joint pain PFSH PFSH Medical History TMJ (dislocation of temporomandibular joint) ?S03.00XA - Dislocation of jaw, unspecified side, initial encounter (ICD-10) Neck pain ?M54.2 - Cervicalgia (ICD-10) Back pain ?M54.9 - Dorsalgia, unspecified (ICD-10) Osteoarthritis ?M19.90 - Unspecified osteoarthritis, unspecified site (ICD-10) H/O psychiatric care ?Z92.89 - Personal history of other medical treatment (ICD-10) Heartburn ?R12 - Heartburn (ICD-10) Acid reflux ?K21.9 - Gastro-esophageal reflux disease without esophagitis (ICD-10) Hypothyroid ?E03.9 - Hypothyroidism, unspecified (ICD-10) Kidney stones ?N20.0 - Calculus of kidney (ICD-10) Asthma ?J45.909 - Unspecified asthma, uncomplicated (ICD-10) High cholesterol ?E78.00 - Pure hypercholesterolemia, unspecified (ICD-10) Hypertension ?I10 - Essential (primary) hypertension (ICD-10) Surgical History H/O shoulder surgery ?Z98.890 - Other specified postprocedural states (ICD-10) H/O excision of hemangioma ?Z98.890 - Other specified postprocedural states (ICD-10) ?Z86.018 - Personal history of other benign neoplasm (ICD-10) H/O basal cell carcinoma excision ?Z98.890 - Other specified postprocedural states (ICD-10) ?Z85.828 - Personal history of other malignant neoplasm of skin (ICD-10) H/O lumbosacral spine surgery ?Z98.890 - Other specified postprocedural states (ICD-10) H/O foot surgery ?Z98.890 - Other specified postprocedural states (ICD-10) H/O hand surgery ?Z98.890 - Other specified postprocedural states (ICD-10) H/O wrist surgery ?Z98.890 - Other specified postprocedural states (ICD-10) History of cholecystectomy ?Z90.49 - Acquired absence of other specified parts of digestive tract (ICD- 10) H/O breast biopsy ?Z98.890 - Other specified postprocedural states (ICD-10) History of appendectomy ?Z90.49 - Acquired absence of other specified parts of digestive tract (ICD- 10) History of tonsillectomy and adenoidectomy ?Z90.89 - Acquired absence of other organs (ICD-10) Meds Home Medications and Allergies Home Medications ?Medication ?Instructions ?Recorded ?Confirmed ?Type acetaminophen 650 mg 1,300 mg PO Q8H PRN pain 07/07/23 03/13/24 History tablet,extended release (Arthritis Pain Relief (acetaminophen) ER) albuterol 90 mcg/actuation aerosol 90 mcg inhalation .every 4 hours 07/07/23 03/13/24 History inhaler PRN shortness of breath or wheezing alendronate 35 mg tablet 70 mg PO QWEEK 07/07/23 03/13/24 History amitriptyline 50 mg tablet 50 mg PO DAILY 07/07/23 03/13/24 History ascorbic acid (vitamin C) 500 mg 500 mg PO BID 07/07/23 03/13/24 History tablet,extended release (C Complex) aspirin 81 mg tablet,delayed 81 mg PO DAILY 07/07/23 03/13/24 History release (Adult Aspirin Regimen) atorvastatin 40 mg tablet 40 mg PO DAILY 07/07/23 03/13/24 History calcium carbonate (Calcium 600) 600 mg PO DAILY 07/07/23 03/13/24 History carvedilol 25 mg tablet 25 mg PO BID 07/07/23 03/13/24 History cholecalciferol (vitamin D3) 50 200 mcg PO DAILY 07/07/23 03/13/24 History mcg (2,000 unit) tablet (Vitamin D3) escitalopram oxalate 20 mg tablet 20 mg PO DAILY 07/07/23 03/13/24 History famotidine 20 mg tablet 20 mg PO DAILY 07/07/23 03/13/24 History fenofibrate 160 mg tablet 160 mg PO DAILY 07/07/23 03/13/24 History fexofenadine 180 mg tablet 180 mg PO DAILY 07/07/23 03/13/24 History hydralazine 100 mg tablet 100 mg PO TID 07/07/23 03/13/24 History clxfsdurfdroq-xmwezsmchwbkp-optvuyuafamki 2 cap PO 07/07/23 History 65 mg-100 mg-325 mg capsule levothyroxine 150 mcg capsule 150 mcg PO DAILY 07/07/23 03/13/24 History lisinopril 20 1 tab PO DAILY 07/07/23 03/13/24 History mg-hydrochlorothiazide 12.5 mg tablet magnesium 250 mg tablet 250 mg PO DAILY 07/07/23 03/13/24 History nzcuxjse-awx-txckb acid 0.4 1 tab PO DAILY 07/07/23 03/13/24 History mg-lycopene 300 mcg-lutein 250 mcg tablet (Centrum Silver) omeprazole 40 mg capsule,delayed 40 mg PO DAILY 07/07/23 03/13/24 History release oxybutynin chloride 10 mg 10 mg PO DAILY 07/07/23 03/13/24 History tablet,extended release 24 hr methocarbamol 500 mg tablet 500 mg PO BID 04/19/24 04/19/24 History buprenorphine 7.5 mcg/hour weekly 1 patch transdermal Q7D #4 ea 05/01/24 Rx transdermal patch (Butrans) buprenorphine 7.5 mcg/hour weekly 1 patch transdermal Q7D #4 ea 06/01/24 Rx transdermal patch (Butrans) Allergies Allergy/AdvReac Type Severity Reaction Status Date / Time adhesive tape Allergy Verified 02/07/24 10:34 Influenza Virus Vaccines Allergy Verified 02/07/24 10:34 lincomycin [From Lincocin] Allergy Verified 02/07/24 10:34 Penicillins Allergy Verified 02/07/24 10:34 Exam Constitutional Documenting provider has reviewed patient's vital signs: yes Common normals: no apparent distress, oriented x3, healthy appearing, alert and well nourished General appearance: cooperative HENMT Common normals: normocephalic, hearing grossly normal bilaterally and moist oral mucous membranes Head and scalp: normocephalic Eye Common normals: PERRL Pupil: PERRL Neck & C-Spine Common normals: full ROM General: normal visual inspection Cervical spine: pain with cervical ROM Other: negative facet loading, negative spurlings, strength 5/5 in BUE Chest Common normals: inspection of chest normal Respiratory Common normals: normal respiratory effort, no retractions and no use of accessory muscles Back & Pelvis Lumbar spine/lower back: ROM limited, pain with ROM and straight leg raise positive right Sacroiliac joints: SI joint(s) abnormal Other: right SIJ positive eri(patricks), gaenslens, thigh thrust, compression test decreased sensation bilateral L5/S1 strength 4/5 in BLE Extremity Right lower extremity: hip joint Other: pain with internal and external log roll Neuro Common normals: oriented x3, CN's II-XII intact bilaterally, moves all e xtremities, no focal motor deficits, no sensory deficits noted and deep tendon reflexes 2+ bilaterally Sensorium/orientation: alert Motor exam: strength 5/5 throughout and no movement abnormalities noted Psych Common normals: mental status grossly normal, thought process normal, cooperative, affect normal, speech normal and activity/motor behavior normal Speech: normal speech Thought process: normal thought process Results Additional Findings Additional findings: If on a controlled substance or opioids, I have checked an [place] report on this patient and there are no aberrancies noted in the prescribing history.??If on a controlled substance or opioid a drug screen was completed and reviewed within the last year, and if there has not been a drug screen completed we ordered one today to monitor higher risk, state monitored pain medication use. As part of providing excellent, safe, comprehensive care, the following was completed at our patient's visit: 1. A medication reconciliation and review to ensure accurate knowledge of current/active medications, including asking our patients to inform us about any eahe-the-zdiqqfw medications or herbal remedies/nutritional supplements/alternative remedies. 2. A review to specifically ensure our patients have had annual screening for screening for depression, screening for tobacco use, and screening for unhealthy alcohol use. For concerning screenings had a discussion with the patient, provided patient education, and recommended follow-up with primary care provider when appropriate. If patient noted with a risk of falling, they received education on strength, gait, and balance training to prevent future risk of falling. Assessment and Plan Assessment and Plan (1) Sacroiliitis: (2) Lumbar stenosis with neurogenic claudication: (3) Lumbar postlaminectomy syndrome: (4) Cervical spondylosis: Assessment and Plan: >60% improvement ongoing relief from cervical RFAs (5) Degenerative cervical disc: (6) Chronic prescription opiate use: (7) Muscle spasm: Plan bilateral L5-S1 TFESI under fluoroscopy followed by right SIJ injection under fluoroscopy continue medications, tolerating well without side effects f/u 2 weeks after injections complete
== END 2024-06-22 11:25 | disposition home or self-care (01) ==
LOC: PM 11:24
PROVIDERS: PCP Family Medicine; Visit Provider Nurse Practitioner
DX: M46.1 Sacroiliitis, not elsewhere classified (principal); M48.062 Spinal stenosis, lumbar region with neurogenic claudication; M96.1 Postlaminectomy syndrome, not elsewhere classified; M47.812 Spondylosis without myelopathy or radiculopathy, cervical region; M50.30 Other cervical disc degeneration, unspecified cervical region; Z79.891 Long term (current) use of opiate analgesic
CPT/HCPCS: G0463

== ENCOUNTER 2024-07-17 09:28 | Day surgery (SDC) | payer MEDICARE, SELFPAY ==
--- OUTSIDE RECORDS SUMMARY | 2024-07-17 09:48 | XMS_ITS | CCD ---
Author Organization [facility] CliniSyhi Care Team Providers Care Boiler Inspector Name Role Phone LENNY PEDRAZA Unavailable Unavailable AUDREY HORN Unavailable Unavailable AUDREY HORN Unavailable Unavailable LENNY PEDRAZA Unavailable Unavailable NASH, BIA F Primary Care Unavailable NASH, BIA F Primary Care Unavailable LALIT LEACH Attending Unavailable NASH, BIA F Referring Unavailable NASH, BIA F Primary Care Unavailable Nash GARCIA, Bia Anny Primary Care Provider [phone] Jacob Viveros Unavailable Unavailable Bia Cao MD Primary Care Provider [phone] (Hist), No Pcp Primary Care Provider UnavailIleana Paris MD Unavailable [phone] MANDI HOOVER Attending Unavailable Giedraitis , Andrius Maria Elena Attending Unavailable Giedraitis , Andrius Maria Elena Attending Unavailable Giedraitis , Andrius Maria Elena Attending Unavailable Giedraitis , Andrius Maria Elena Attending Unavailable Giedraitis , Andrius Vickiytsb Attending Unavailable Giedraitis , Andrius Vytsb Attending Unavailable Giedraitis , Andrius Maria Elena Attending Unavailable NASH, BIA F Primary Care Unavailable JUAN TAMEZ Attending Unavailable JUAN TAMEZ Attending Unavailable JUAN TAMEZ Referring Unavailable NASH, BIA F Primary Care Unavailable GUNDABOLU, JOHN Referring Unavailable NASH, BIA F Primary Care Unavailable GUNDABOLU, JOHN Referring Unavailable NASH, BIA F Primary Care Unavailable YOANNA DORSEY Referring Unavailable NASH, BIA F Primary Care Unavailable YOANNA DORSEY Attending Unavailable NASH, BIA F Referring Unavailable NASH, BIA F Primary Care Unavailable NASH, BIA F Referring Unavailable NASH, BIA F Primary Care Unavailable ILEANA CORTES Attending Unavailable YOANNA DORSEY Referring Unavailable NASH, BIA F Primary Care Unavailable SAMIRAARPANTIMOTHY JOHN Attending Unavailable NASH, BIA F Referring Unavailable NASH, BIA F Primary Care Unavailable BETTY, YOANNA Attending Unavailable NASH, BIA F Referring Unavailable NASH, BIA F Primary Care Unavailable BETTY, YOANNA Attending Unavailable NASH, BIA F Referring Unavailable NASH, BIA F Primary Care Unavailable NASH, BIA F Attending Unavailable NASH, BIA F Attending Unavailable RUSSANTO PETERSON Attending Unavailable WILVERELMER WILKERSON Attending Unavailable NASH, BIA F Referring Unavailable [...] BIA F Attending Unavailable NASH, BIA F Referring Unavailable NASH, BIA F Referring Unavailable NASH, BIA F Referring Unavailable NASH, BIA F Attending Unavailable NASH, BIA F Attending Unavailable NASH, BIA F Attending Unavailable KAMPFERRUBÉN Attending Unavailable NASH, BIA F Attending Unavailable NASH, BIA F Referring Unavailable WILVERELMER WILKERSON Attending Unavailable NASH, BIA F Referring Unavailable SNYDER, RIA Attending Unavailable NASH, BIA F Referring Unavailable WILVERELMER Attending Unavailable NASH, BIA F Referring Unavailable Allergies Allergy Classification Reported Allergen(s) Allergy Type Date of Onset Reaction(s) Facility Amoxicillin / Clavulanate (1 source) Amoxicillin / Clavulanate Drug Allergy 08-14-20 11 Rash [facility] Aspartame (1 source) Aspartame Drug Allergy 02-13-20 17 Other: See Comments [facility] Clavulanate (1 source) Clavulanate Drug Allergy 02-13-20 17 Rash [facility] egg white (chicken) allergenic extract (1 source) egg white (chicken) allergenic extract Drug Allergy 08-14-20 11 Swelling [facility] Lincomycin (1 source) Lincomycin Drug Allergy 11-04-20 16 [facility] NSAIDs (1 source) oxaprozin Drug Allergy 11-04-20 16 [facility] Penicillins (antibiotic) (1 source) Penicillins Drug Allergy 11-04-20 16 [facility] (12 sources) Adhesive agent; Translations: [ADHESIVE] Propensity [...] Influenza Vaccines Drug Allergy 06-04-20 23 Rash [facility] (6 sources) Lincomycin Drug Allergy 12-01-19 22 Unknown [facility] (6 sources) Sulfonamides (Antibiotic) Drug Intolerance 11-11-20 22 Hives [facility] (6 sources) Eggs Or Egg-Derived Products Drug Allergy 08-14-20 11 Swelling, Unknown [facility] (6 sources) Poultry Meal Propensity to adverse reactions 03-02-20 23 [facility] (6 sources) Wound Dressing Adhesive Drug Allergy 06-04-20 23 Rash [facility] (3 sources) egg white (chicken) allergenic extract; Translations: [EGG WHITE] Drug Allergy 08-14-20 11 Swelling [facility] Medications Current Medications Medication Drug Class(es) Dates Sig (Normalized) Sig (Original) acetaminophen 500 mg oral tablet (8 sources) take 500-1000 mg by mouth every eight hours as needed acetaminophen (TYLENOL) 500 mg tablet Take 500-1,000 mg by mouth three times daily as needed. 0 Active take 2 tablets by [facility] every six hours as needed for pain [...] every six hours as needed for headache gmupfny-wiwbaanexdsfr-ptgbdjkv (EXCEDRIN MIGRAINE) 250-250-65 mg per tablet Take 1 tablet by mouth every 6 (six) hours as needed for headaches. 0 Active acetaminophen 325 mg / butalbital 50 mg / caffeine 40 mg oral tablet (11 sources) Barbiturate, Central Nervous System Stimulant, Methylxanthine St ar t: 06 23 take 1 tablet by mouth every four hours as needed for headache nnazzgdoap-aluyxyuedhtbv-urta (ESGIC) 50-325-40 mg per tablet Take 1 [...] four times daily as needed. 0 Active [id number] 200 actuat albuterol 0.09 mg/actuat metered dose inhaler (14 sources) beta2-Adrenergic Agonist [facility] t: 23 take 2 puff(s) by inhalation [...] by mouth. 0 04/23/2023 01/07/2024 Discontinued pediatric walhcwbb-fluy-vh n (flintstones complete) tablet,chewable (3 sources) Start: 01-18-2024 End: 02-24-2024 pediatric tqyxcuvv-jzjz-jbu (flintstones complete) tablet,chewable Chew 1 tablet and swallow in the morning. 90 tablet 3 01/18/2024 02/24/2024 Discontinued (Duplicate Listing) Start: 01-18-2024 pediatric mult waxo-ynwr-nxn (flintstones complete) tablet,chewable Chew 1 tablet and [...] 1 06-04-2023 Chronic Disorders of lipid metabolism (18 sources) Hyperlipidemia; Translations: [Other hyperlipidemia] Onset: 5 10-26-2017 Chronic E Codes: Fall (1 source) Fall Onset: [...] Onset: 0 06-04-2023 Chronic Headache; including migraine (14 sources) Migraine without aura, not refractory ; [...] Translations: [Nausea with vomiting, unspecified] 06-24-2021 Episodic Nutritional deficiencies (2 sources) Vitamin D deficiency, unspecified; Translations: [Vitamin D deficiency, unspecified] Onset: 4 Chronic Osteoarthritis (6 sources) Osteoarthritis of right knee joint; Translations: [Unilateral primary osteoarthritis, right knee] Onset: 1 06-04-2023 Chronic Osteoporosis (14 sources) Senile osteoporosis; Translations: [Age-related osteoporosis without [...] neoplasm of meninges, unspecified] 05-09-2024 Chronic Other and unspecified benign neoplasm (2 sources) Benign neoplasm of meninges, unspecified; Translations: [Benign neoplasm of meninges, unspecified] Onset: 4 Chronic Other and unspecified benign neoplasm (1 source) Benign neoplasm of cranial nerves; Translations: [Benign neoplasm of cranial nerves] Onset: 4 Chronic Other connective tissue disease [...] [Unspecified sensorineural hearing loss] 04-05-2024 Chronic Other ear and sense organ disorders (1 source) Unspecified hearing loss, bilateral; Translations: [Unspecified hearing loss, bilateral] Onset: 4 Chronic Other gastrointestinal disorders (11 sources) Chronic [...] 3 12-23-2023 Episodic Other nervous system disorders (5 sources) [...] specified disorders of brain] 03-28-2024 Chronic Other nervous system disorders (2 sources) Polyneuropathy, unspecified; Translations: [Polyneuropathy, unspecified] Onset: 4 Chronic Other screening for suspected conditions (not mental disorders or infectious disease) (1 source) Abnormal findings on diagnostic imaging of other specified body structures; Translations: [Abnormal findings on diagnostic imaging of other specified body structures] Onset: 4 Chronic Spondylosis; intervertebral disc disorders; other back problems (20 sources) Prolapsed lumbar intervertebral disc; Translations: [Other intervertebral disc displacement, lumbar region] Onset: 1 Resolved: 3 01-07-2017 Chronic Thyroid disorders (13 sources) Acquired hypothyroidism; Translations: [Hypothyroidism, unspecified] Onset: [...] [Calculus of kidney] Onset: 03-02-2023 03-02-2023 Episodic Diabetes mellitus without complication (3 sources) Prediabetes; Translations: [Prediabetes] Onset: 01-07-2024 01-07-2024 Episodic E Codes: Fall (1 source) Unspecified fall, initial encounter; Translations: [Unspecified fall, initial encounter] Onset: 02-11-2024 Episodic Malaise and fatigue (9 sources) Asthenia; Translations: [Weakness] Onset: 11-04-2016 11-04-2016 [...] muscle spasm; Translations: [Other muscle spasm] Onset: 06-12-2019 Episodic Other injuries and conditions due to external causes (1 source) Unspecified injury of head, initial encounter; Translations: [Unspecified injury of head, initial encounter] Onset: 02-11-2024 Episodic Other lower respiratory disease (5 sources) Dyspnea; Translations: [Shortness of breath] Onset: 11-06-2019 11-06-2019 Episodic Other lower respiratory disease (1 source) Solitary pulmonary nodule; Translations: [Solitary pulmonary nodule] Onset: 02-11-2024 Episodic Other nervous system disorders (6 sources) Impairment of balance; Translations: [Other abnormalities of gait and mobility] Onset: 06-12-2019 06-12-2019 Episodic Other nervous system disorders (2 sources) Other abnormalities of gait and mobility; Translations: [Other abnormalities of gait and mobility] Onset: 06-12-2019 Episodic Other non-traumatic joint disorders (10 sources) Hip pain; Translations: [Pain in right hip] Onset: 10-13-2017 11-03-2017 Episodic Other screening for suspected conditions (not mental disorders or infectious disease) (4 sources) Abnormal level of blood mineral; Translations: [Abnormal level of blood mineral] Onset: 01-07-2024 01-07-2024 Episodic Other upper respiratory disease (5 sources) Chronic hoarseness; Translations: [Dysphonia] Onset: 07-24-2020 07-24-2020 Episodic Residual codes; unclassified (1 source) Pain, unspecified; Translations: [Pain, unspecified] Onset: 03-16-2024 Episodic Screening and history of mental health [...] Test Name Value Interpretation Reference Range Facility CALCIUMon 07-10-2024 Calcium [Mass/Vol] 9.5 mg/dL Normal 8.5-10.5 [facility] Comment on above: Performed By: #### 1 3965-9, CBCA, FEPR, THYR, 2276-4, 2132-9, 2284-8, IMEL, SPE #### [facility] ([id number]) [address], [address] [place] [address] #### MTHFRS #### [facility] ([id number]) [address] [place] [address] THYROID PROFILEon 07-10-2024 Free T4 [Mass/Vol] 1.24 ng/dL Normal 0.61-1.60 [facility] Comment on above: Performed By: #### 1 3965-9, CBCA, FEPR, THYR, 2276-4, 2-9, 2284-8, IMEL, SPE #### [facility] ([id number]) [address] [place] [address], [address] [place] [address] #### MTHFRS #### [facility] ([id number]) [address] [place] [address] TSH 1.37 uIU/mL Normal 0.49-4.67 [facility] Comment on above: Performed By: #### 1 3965-9, CBCA, FEPR, THYR, 6-4, 2131-9, 2284-8, IMEL, SPE #### [facility] ([id number]) [address] [place] [address], [address] [place] [address] #### MTHFRS #### [facility] ([id number]) [address] [place] [address] Vitamin D+Metabolites [Mass/ Vol]on 07-10-2024 VITAMIN D 25 HYD TOT 78.8 ng/mL Normal 30-100 [facility] Comment on above: Result Comment: Vitamin D status 25 [place] Vitamin D Deficiency <20 ng/mL Insufficiency 20-29 ng/mL Sufficiency 30-100 ng/mL Toxicity >100 ng/mL NOTE: A pediatric reference range has not been established by the ceo & board director of this kit. The [place] [employer] recommends a Vitamin D level of = or >20ng/mL in infants and children. Performed By: #### 1 3965-9, CBCA, FEPR, THYR, 2276-4, 2132-9, 2284-8, IMEL, JOSHUA #### [facility] ([id number]) [address], [address] [place] [address] #### MTHFRS #### [facility] ([id number]) [address] [place] [address] XR THORACIC SPINE 3 VIEWSon 07-10-2024 XR THORACIC SPINE 3 VIEWS EXAM: XR Thoracic Spine, Five Views. REASON FOR EXAM: Right sided mid to lower thoracic spine pain for two weeks. COMPARISON: None FINDINGS: For counting purposes, there are 12 thoracic vertebral elements. Vertebral body height is maintained in the lateral projection. The bony foramina are symmetric. Diffuse anterior spurring is noted. Sclerotic endplates are noted. S-shaped curvature of the lower thoracic and upper lumbar spine is present. Proximal ribs are without acute abnormality. Paraspinal stripe is normal in thickness. Pedicles are symmetric. Atherosclerosis of the arch. Metallic fixation of the upper lumbar spine noted incompletely visualized. Cervical thoracic alignment preserved on the swimmers view. Five images submitted. IMPRESSION: 1. No acute bony abnormalities radiographically. 2. Diffuse spondylosis. 3. Scoliosis of the thoracolumbar spine. *This report is generated using voice recognition reporting ([employer]). On occasion gamesGRABRcribe erroneously drops words from the report or replaces the spoken word with similar sounding words. Please call with any questions/concerns regarding this report.* Dictated and transcribed 07/11/2024/tm This report has been electronically signed and approved by the interpreting radiologist. Electronically Signed Shubham Almodovar II, M.D. 2024-07-11 10:01:04 Normal Not Available CNOVon 04-04-2024 CNOV Office Visit (NSCAMN ) -- ANGELA RUTH ([id number]) 1945 F Date Time Provider Department 04/04/24 [...] [facility] CC: Patient Care Team: Bia Cao as PCP ([facility]) Ileana Cortes MD as NI Referring Team [...] our skull base team advance practice providers ([place] preference). - follow up with customer program manager for hearing loss which is unrelated to [...] Patient is accompanied by her granddaughter (her mechanic welder truck driver) and great grand daughter). The [...] contrast and shows a 1.2 cm R COLLECTIONS CLERK contrast-enhancing lesion concerning for either schwannoma or meningioma- no associated mass effect or edema. The patient takes ASA 81 mg daily for cardioprotection per her PCP. The patient has been using a cane for the last 5-6 years. The patient reports that ~6 weeks ago, she walked into her garage door and fell. The patient has not seen an customer program manager or a vestibular therapist. Past Medical History: [...] Units once (more content not included)... Normal [facility] ANGELA RUTH ([id number]) 1945 F Date Time Provider Department 03/24/24 NEUROLOGY PROVIDER NI During your visit today, we recorded the following information about you: Fletcher Shelli 03/24/2024 5:01 PM Signed Referral source: Ileana Cortes MD ([facility]) Reason for visit: consideration of gamma knife for 1.2 cm enhancing lesion at right cerebelloponitine angle with leading differential including vestibular schwannoma and meningioma External records: Sent with referral and pulled from [facility] Triage: Required, forwarded to [facility] by telephone encounter sent to [facility] Scheduling Triage. Financial clearance: Not required to schedule Vanesa Morgan APRN.[facility] 03/28/2024 10:00 AM Signed Time Frame: First available Provider: Kiko Landrum Soni Referring: Ileana Cortes MD Images to be requested from [facility] Dx: Right CPA mass Patient: Angela Ruth Address: Angela Ruth [phone] [place] [address] Per Triage: HISTORY OF PRESENT ILLNESS Angela [...] extracranial soft tissues are unremarkable. Vanesa Morgan, ROOMING HOUSE OPERATOR.GRAINER MACHINE March 28, 2024 Etelvina Trujillo 03/28/2024 10:12 AM Signed Called patient to schedule an appointment. No ans/left message to call the office back. Appointment scheduled: 04/04/2024 10:30 AM (Arrive by 10:15 AM) Mandi Hoover MD [facility] RAMAN Alonso Janette 04/06/2024 10:40 AM Addendum Imaging requested from [facility]. 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 (REFER (more content not included)... Normal [facility] MR BRAIN W AND WO CONTRAST ( [...] IS VERY IMPORTANT TO YOUR HEALTH. THE [place] [employer] GUIDELINES RECOMMEND THAT WOMEN 40 [...] 24 ABSOLUTE BASOPHIL 0.0 X10E9/L Normal 0.0-0.2 [facility] Comment on above: Performed By: #### 1 3965-9, CBCA, FEPR, THYR, 2276-4, 2-9, 2284-8, IMEL, SPE #### [facility] ([id number]) [address], [address] [place] [address] #### MTHFRS #### [facility] ([id number]) [address] [place] [address] ABSOLUTE NEUTROPHIL 3.0 X10E9/L Normal 1.5-6.6 [facility] Comment on above: Performed By: #### 1 3965-9, CBCA, FEPR, THYR, 6-4, 2131-9, 4-8, IMEL, SPE #### [facility] ([id number]) [address] [place] [address], [facility] [address] [place] [address] #### MTHFRS #### [facility] ([id number]) [address] [place] [address]6796 Basophils/100 WBC (Bld) 0.9 % Normal [facility] Comment on above: Performed By: #### 1 3965-9, CBCA, FEPR, THYR, 2276-4, 2131-9, 2284-8, IMEL, SPE #### [facility] ([id number]) [address] [place] [address] [address] [place] [address] #### MTHFRS #### [facility] ([id number]) [address] [place] [address] Eosinophils (Bld) [#/Vol] 0.1 10*3/uL Normal 0.0-0.4 [facility] Comment on above: Performed By: #### 1 3965-9, CBCA, FEPR, THYR, 2276-4, 2-9, 2284-8, IMEL, SPE #### [facility] ([id number]) [address], [address] [place] [address] #### MTHFRS #### [facility] ([id number]) [address] [place] [address] Eosinophils/100 WBC (Bld) 1.8 % Normal [facility] Comment on above: Performed By: #### 1 3965-9, CBCA, FEPR, THYR, 2276-4, 2131-9, 2283-8, IMEL, SPE #### [facility] ([id number]) [address], [address] [place] [address] #### MTHFRS #### [facility] ([id number]) [address] [place] [address]77 Erythrocyte distribution width (RBC) [Ratio] 15.1 % High 11.5-15.0 [facility] Comment on above: Performed By: #### 1 3965-9, CBCA, FEPR, THYR, 2276-4, 2131-9, 4-8, IMEL, SPE #### [facility] ([id number]) [address], [address] [place] [address] #### MTHFRS #### [facility] ([id number]) [address] [place] [address]6042 Hematocrit (Bld) [Volume fraction] 39.6 % Normal 35-47 [facility] Comment on above: Performed By: #### 1 3965-9, CBCA, FEPR, THYR, 2276-4, 2-9, 2284-8, IMEL, SPE #### [facility] ([id number]) [address], [address] [place] [address] #### MTHFRS #### [facility] ([id number]) [address] [place] [address] Hemoglobin (Bld) [Mass/Vol] 13.5 g/dL Normal 11.7-15.5 [facility] Comment on above: Performed By: #### 1 3965-9, CBCA, FEPR, THYR, 2276-4, 2-9, 2284-8, IMEL, SPE #### [facility] ([id number]) [address], [address] [place] [address] #### MTHFRS #### [facility] ([id number]) [address] [place] [address]91 Lymphocytes (Bld) [#/Vol] 1.5 10*3/uL Normal 1.0-3.5 [facility] Comment on above: Performed By: #### 1 3965-9, CBCA, FEPR, THYR, 6-4, 2-9, 2284-8, IMEL, SPE #### [facility] ([id number]) [address], [address] [place] [address] #### MTHFRS #### [facility] ([id number]) [address] [place] [address] Lymphocytes/100 WBC (Bld) 28.5 % Normal [facility] Comment on above: Performed By: #### 1 3965-9, CBCA, FEPR, THYR, 2276-4, 2-9, 2284-8, IMEL, SPE #### [facility] ([id number]) [address], [address] [place] [address] #### MTHFRS #### [facility] ([id number]) [address] [place] [address]51 MCH (RBC) [Entitic mass] 29.0 pg Normal 27-34 [facility] Comment on above: Performed By: #### 1 3965-9, CBCA, FEPR, THYR, 2276-4, 2-9, 4-8, IMEL, SPE #### [facility] ([id number]) [address], [address] [place] [address] #### MTHFRS #### [facility] ([id number]) [address] [place] [address]41 MCHC (RBC) [Mass/Vol] 34.0 g/dL Normal 32-36 [facility] Comment on above: Performed By: #### 1 3965-9, CBCA, FEPR, THYR, 6-4, 2131-9, 2283-8, IMEL, SPE #### [facility] ([id number]) [address] [place] [address] #### MTHFRS #### [facility] ([id number]) [address] [place] [address]27 MCV (RBC) [Entitic vol] 85 fL Normal 80-100 [facility] Comment on above: Performed By: #### 1 3965-9, CBCA, FEPR, THYR, 6-4, 2131-9, 2283-8, IMEL, SPE #### [facility] ([id number]) [address], [address] [place] [address] #### MTHFRS #### [facility] ([id number]) [address] [place] [address]86 Monocytes (Bld) [#/Vol] 0.5 10*3/uL Normal 0-0.9 [facility] Comment on above: Performed By: #### 1 3965-9, CBCA, FEPR, THYR, 2276-4, 2-9, 2284-8, IMEL, SPE #### [facility] ([id number]) [address], [address] [place] [address] #### MTHFRS #### [facility] ([id number]) [address] [place] [address] 24058 Monocytes/100 WBC (Bld) 10.3 % Normal [facility] Comment on above: Performed By: #### 1 3965-9, CBCA, FEPR, THYR, 2276-4, 2-9, 2284-8, IMEL, SPE #### [facility] ([id number]) [address], [address] [place] [address] #### MTHFRS #### [facility] ([id number]) [address] [place] [address] 28718 Neutrophils/100 WBC (Bld) 58.5 % Normal [facility] Comment on above: Performed By: #### 1 3965-9, CBCA, FEPR, THYR, 2276-4, 2-9, 2284-8, IMEL, SPE #### [facility] ([id number]) [address], [address] [place] [address] #### MTHFRS #### [facility] ([id number]) [address] [place] [address] 36265 Platelet mean volume (Bld) [Entitic vol] 9.2 fL Normal 7-12 [facility] Comment on above: Performed By: #### 1 3965-9, CBCA, FEPR, THYR, 2276-4, 2132-9, 2284-8, IMEL, SPE #### [facility] ([id number]) [address], [address] [place] [address] #### MTHFRS #### [facility] ([id number]) [address] [place] [address] 78233 Platelets (Bld) [#/Vol] 176 10*3/uL Normal 150-450 [facility] Comment on above: Performed By: #### 1 3965-9, CBCA, FEPR, THYR, 2276-4, 2131-9, 4-8, IMEL, SPE #### [facility] ([id number]) [address], [address] [place] [address] #### MTHFRS #### [facility] ([id number]) [address] [place] [address] 83026 RBC COUNT 4.65 X10E12/L Normal 3.80-5.20 [facility] Comment on above: Performed By: #### 1 3965-9, CBCA, FEPR, THYR, 2276-4, 2131-9, 2283-8, IMEL, SPE #### [facility] ([id number]) [address] [facility] [place] [address] #### MTHFRS #### [facility] ([id number]) [address] [place] [address] 85830 WBC (Bld) [#/Vol] 5.2 10*3/uL Normal 4.0-11.0 [facility] Comment on above: Performed By: #### 1 3965-9, CBCA, FEPR, THYR, 6-4, 2131-9, 2283-8, IMEL, SPE #### [facility] ([id number]) [address] [facility] [place] [address] #### MTHFRS #### [facility] ([id number]) [address] [place] [address] 21259 COMPREHENSIVE METABOLIC PANE Gadiel 02-11-2024 Albumin [Mass/Vol] 4.1 g/dL Normal 3.2-5.3 [facility] Comment on above: Performed By: #### 1 3965-9, CBCA, FEPR, THYR, 2276-4, 2131-9, 2284-8, IMEL, SPE #### [facility] ([id number]) [address], [address] [place] [address] #### MTHFRS #### [facility] ([id number]) [address] [place] [address] 46452 ALP [Catalytic activity/Vol] 42 U/L Normal 39-130 [facility] Comment on above: Performed By: #### 1 3965-9, CBCA, FEPR, THYR, 2276-4, 2131-9, 2283-8, IMEL, SPE #### [facility] ([id number]) [address], [address] [place] [address] #### MTHFRS #### [facility] ([id number]) [address] [place] [address] 20770 ALT [Catalytic activity/Vol] 18 U/L Normal 0-31 [facility] Comment on above: Performed By: #### 1 3965-9, CBCA, FEPR, THYR, 6-4, 2132-07, 2284-06, IMEL, SPE #### [facility] ([id number]) [address], [address] [place] [address] #### MTHFRS #### [facility] ([id number]) [address] [place] [address] 93308 Anion gap [Moles/Vol] 7 mmol/L Normal 5-15 [facility] Comment on above: Performed By: #### 1 3965-9, CBCA, FEPR, THYR, 6-4, 9, 8, IMEL, SPE #### [facility] ([id number]) [address], [address] [place] [address] #### MTHFRS #### [facility] ([id number]) [address] [place] [address] 86283 AST [Catalytic activity/Vol] 27 U/L Normal 0-41 [facility] Comment on above: Performed By: #### 1 3965-9, CBCA, FEPR, THYR, 6-4, 9, 8, IMEL, SPE #### [facility] ([id number]) [address], [address] [place] [address] #### MTHFRS #### [facility] ([id number]) [address] [place] [address] 98032 Bilirubin [Mass/Vol] 0.5 mg/dL Normal 0.3-1.2 [facility] Comment on above: Performed By: #### 1 3965-9, CBCA, FEPR, THYR, 2275-, 2132-07, 2284-06, IMEL, SPE #### [facility] ([id number]) [address], [address] [place] [address] #### MTHFRS #### [facility] ([id number]) [address] [place] [address] 33278 Calcium [Mass/Vol] 9.4 mg/dL Normal 8.5-10.5 [facility] Comment on above: Performed By: #### 1 3965-9, CBCA, FEPR, THYR, 2276-02, 2132-07, 2284-06, IMEL, SPE #### [facility] ([id number]) [address], [address] [place] [address] #### MTHFRS #### [facility] ([id number]) [address] [place] [address] 93689 Chloride [Moles/Vol] 104 mmol/L Normal 98-109 [facility] Comment on above: Performed By: #### 1 3965-9, CBCA, FEPR, THYR, 2275-, 2132-07, 2284-06, IMEL, SPE #### [facility] ([id number]) [address], [address] [place] [address] #### MTHFRS #### [facility] ([id number]) [address] [place] [address] 62897 CO2 [Moles/Vol] 25 mmol/L Normal 22-32 [facility] Comment on above: Performed By: #### 1 3965-9, CBCA, FEPR, THYR, 6-4, 2132-07, 2284-06, IMEL, SPE #### [facility] ([id number]) [address] [place] [address] #### MTHFRS #### [facility] ([id number]) [address] [place] [address] 68587 Creatinine [Mass/Vol] 1.01 mg/dL High 0.40-1.00 [facility] Comment on above: Result Comment: METH OD TRACEABLE TO IDMS STANDARD Performed By: #### 1 3965-9, CBCA, FEPR, THYR, 2276-02, 2132-07, 2284-06, IMEL, SPE #### [facility] ([id number]) [address], [address] [place] [address] #### MTHFRS #### [facility] ([id number]) [address] [place] [address] 96480 GFR/1.73 sq M.predicted among non-blacks MDRD (S/P/Bld) [Vol rate/Area] 57 mL/min/{1.73_m2} Low >59 [facility] Comment on above: Result Comment: Reported eGFR is based on the CKD-EPI 2020 equation that does not use a race coefficient. Performed By: #### 1 3965-9, CBCA, FEPR, THYR, 6-4, 9, 2284-06, IMEL, SPE #### [facility] ([id number]) [address], [address] [place] [address] #### MTHFRS #### [facility] ([id number]) [address] [place] [address] Glucose [Mass/Vol] 114 mg/dL High 65-99 [facility] Comment on above: Performed By: #### 1 3965-9, CBCA, FEPR, THYR, 2276-4, 2131-9, 4-8, IMEL, SPE #### [facility] ([id number]) [address] [place] [address] #### MTHFRS #### [facility] ([id number]) [address] [place] [address] 20325 Potassium [Moles/Vol] 4.2 mmol/L Normal 3.5-5.0 [facility] Comment on above: Performed By: #### 1 3965-9, CBCA, FEPR, THYR, 6-4, 2131-9, 4-8, IMEL, SPE #### [facility] ([id number]) [address] [facility] [place] [address] #### MTHFRS #### [facility] ([id number]) [address] [place] [address] 94238 Protein [Mass/Vol] 7.2 g/dL Normal 6.0-8.0 [facility] Comment on above: Performed By: #### 1 3965-9, CBCA, FEPR, THYR, 6-4, 2131-9, 2283-8, IMEL, SPE #### [facility] ([id number]) [address] [place] [address] #### MTHFRS #### [facility] ([id number]) [address] [place] [address] 38126 Sodium [Moles/Vol] 136 mmol/L Normal 134-146 [facility] Comment on above: Performed By: #### 1 3965-9, CBCA, FEPR, THYR, 2276-4, 2132-9, 2284-8, IMEL, SPE #### [facility] ([id number]) [address], [address] [place] [address] #### MTHFRS #### [facility] ([id number]) [address] [facility], [place] [address] Urea nitrogen [Mass/Vol] 22 mg/dL Normal 5-27 [facility] Comment on above: Performed By: #### 1 3965-9, CBCA, FEPR, THYR, 2276-4, 2132-9, 2284-8, IMEL, SPE #### [facility] ([id number]) [address] [facility] [facility] [place] [address] #### MTHFRS #### [facility] ([id number]) [address] [facility], [place] [address] CT ABDOMEN AND PELVIS W CONT on [...] Mooney MD on 02/11/2024 2:04 PM Normal [facility] CT BRAIN WO CONTon CT BRAIN WO [...] Dharmesh Mittal on 02/11/2024 1:52 PM Normal [facility] CT CERVICAL SPINE WO CONTon 02-11-2024 [...] Davis DO on 02/11/2024 1:52 PM Normal [facility] CT CHEST W CONTon 02-11-2024 CT CHEST [...] Ann MD on 02/11/2024 2:19 PM Normal [facility] LIPASEon 02-11-2024 Lipase [Catalytic activity/Vol] 38 U/L Normal 17-40 [facility] Comment on above: Performed By: #### 1 3965-9, CBCA, FEPR, THYR, 2276-4, 2131-9, 2283-8, IMEL, SPE #### [facility] ([id number]) [address] [place] [address], [address] [place] [address] #### MTHFRS #### [facility] ([id number]) [address] [place] [address] 75849 CBC AND AUTO DIFFon 01-11-20 24 ABSOLUTE BASOPHIL 0.1 X10E9/L Normal 0.0-0.2 [facility] Comment on above: Performed By: #### 1 3965-9, CBCA, FEPR, THYR, 2276-4, 2132-9, 2284-8, IMEL, SPE #### [facility] ([id number]) [address] [place] [address], [address] [place], [place] [address] #### MTHFRS #### [facility] ([id number]) [address] [place] [address] 89020 ABSOLUTE NEUTROPHIL 2.4 X10E9/L Normal 1.5-6.6 [facility] Comment on above: Performed By: #### 1 3965-9, CBCA, FEPR, THYR, 2276-4, 2132-9, 2284-8, IMEL, SPE #### [facility] ([id number]) [address] [place] [address] #### MTHFRS #### [facility] ([id number]) [address] [place] [address] 54627 Basophils/100 WBC (Bld) 1.4 % Normal [facility] Comment on above: Performed By: #### 1 3965-9, CBCA, FEPR, THYR, 2276-4, 2-9, 2284-8, IMEL, SPE #### [facility] ([id number]) [address] [facility] [place] [address] #### MTHFRS #### [facility] ([id number]) [address] [place] [address] 97545 Eosinophils (Bld) [#/Vol] 0.1 10*3/uL Normal 0.0-0.4 [facility] Comment on above: Performed By: #### 1 3965-9, CBCA, FEPR, THYR, 2276-4, 2-9, 2284-8, IMEL, SPE #### [facility] ([id number]) [address] [facility], [address] [place] [address] #### MTHFRS #### [facility] ([id number]) [address] [place] [address] 38347 Eosinophils/100 WBC (Bld) 2.8 % Normal [facility] Comment on above: Performed By: #### 1 3965-9, CBCA, FEPR, THYR, 2276-4, 2-9, 2284-8, IMEL, SPE #### [facility] ([id number]) [address] [facility], [address] [place] [address] #### MTHFRS #### [facility] ([id number]) [address] [place] [address] 12842 Erythrocyte distribution width (RBC) [Ratio] 15.5 % High 11.5-15.0 [facility] Comment on above: Performed By: #### 1 3965-9, CBCA, FEPR, THYR, 6-4, 2132-07, 8, IMEL, SPE #### [facility] ([id number]) [address] [facility], [address] [place] [address] #### MTHFRS #### [facility] ([id number]) [address] [place] [address] 65751 Hematocrit (Bld) [Volume fraction] 38.4 % Normal 35-47 [facility] Comment on above: Performed By: #### 1 3965-9, CBCA, FEPR, THYR, 2275-, 2132-07, 2284-06, IMEL, SPE #### [facility] ([id number]) [address] [facility], [address] [place] [address] #### MTHFRS #### [facility] ([id number]) [address] [place] [address] 80855 Hemoglobin (Bld) [Mass/Vol] 12.5 g/dL Normal 11.7-15.5 [facility] Comment on above: Performed By: #### 1 3965-9, CBCA, FEPR, THYR, 2276-02, 2132-07, 2284-06, IMEL, SPE #### [facility] ([id number]) [address] [place] [address] #### MTHFRS #### [facility] ([id number]) [address] [place] [address] 78264 Lymphocytes (Bld) [#/Vol] 1.7 10*3/uL Normal 1.0-3.5 [facility] Comment on above: Performed By: #### 1 3965-9, CBCA, FEPR, THYR, 6-4, 2132-07, 2284-8, IMEL, SPE #### [facility] ([id number]) [address] [place] [address] #### MTHFRS #### [facility] ([id number]) [address] [place] [address] 72717 Lymphocytes/100 WBC (Bld) 35.8 % Normal [facility] Comment on above: Performed By: #### 1 3965-9, CBCA, FEPR, THYR, 6-4, 2131-9, 2283-8, IMEL, SPE #### [facility] ([id number]) [address] [place] [address] #### MTHFRS #### [facility] ([id number]) [address] [place] [address] 38411 MCH (RBC) [Entitic mass] 28.5 pg Normal 27-34 [facility] Comment on above: Performed By: #### 1 3965-9, CBCA, FEPR, THYR, 6-4, 2131-9, 2283-8, IMEL, SPE #### [facility] ([id number]) [address], [address] [place] [address] #### MTHFRS #### [facility] ([id number]) [address] [place] [address] 26619 MCHC (RBC) [Mass/Vol] 32.7 g/dL Normal 32-36 [facility] Comment on above: Performed By: #### 1 3965-9, CBCA, FEPR, THYR, 6-4, 2131-9, 2283-8, IMEL, SPE #### [facility] ([id number]) [address] [place] [address] #### MTHFRS #### [facility] ([id number]) [address] [place] [address] 84737 MCV (RBC) [Entitic vol] 87 fL Normal 80-100 [facility] Comment on above: Performed By: #### 1 3965-9, CBCA, FEPR, THYR, 6-4, 9, 2283-8, IMEL, SPE #### [facility] ([id number]) [address] [place] [address] #### MTHFRS #### [facility] ([id number]) [address] [place] [address] 50964 Monocytes (Bld) [#/Vol] 0.5 10*3/uL Normal 0-0.9 [facility] Comment on above: Performed By: #### 1 3965-9, CBCA, FEPR, THYR, 6-4, 2132-07, 2284-06, IMEL, SPE #### [facility] ([id number]) [address] [place] [address] #### MTHFRS #### [facility] ([id number]) [address] [place] [address] 87725 Monocytes/100 WBC (Bld) 10.0 % Normal [facility] Comment on above: Performed By: #### 1 3965-9, CBCA, FEPR, THYR, 2275-, 2132-07, 2284-06, IMEL, SPE #### [facility] ([id number]) [address] [place] [address] #### MTHFRS #### [facility] ([id number]) [address] [place] [address] 33027 Neutrophils/100 WBC (Bld) 50.0 % Normal [facility] Comment on above: Performed By: #### 1 3965-9, CBCA, FEPR, THYR, 6-4, 2132-07, 2284-06, IMEL, SPE #### [facility] ([id number]) [address] [facility], [address] [place] [address] #### MTHFRS #### [facility] ([id number]) [address] [place] [address] 84756 Platelet mean volume (Bld) [Entitic vol] 9.6 fL Normal 7-12 [facility] Comment on above: Performed By: #### 1 3965-9, CBCA, FEPR, THYR, 2276-4, 2-9, 2284-8, IMEL, SPE #### [facility] ([id number]) [address] [facility], [address] [place] [address] #### MTHFRS #### [facility] ([id number]) [address] [place] [address] 84457 Platelets (Bld) [#/Vol] 194 10*3/uL Normal 150-450 [facility] Comment on above: Performed By: #### 1 3965-9, CBCA, FEPR, THYR, 2276-4, 2131-9, 2284-8, IMEL, SPE #### [facility] ([id number]) [address] [facility], [address] [place] [address] #### MTHFRS #### [facility] ([id number]) [address] [place] [address] 29480 RBC COUNT 4.41 X10E12/L Normal 3.80-5.20 [facility] Comment on above: Performed By: #### 1 3965-9, CBCA, FEPR, THYR, 2276-4, 2-9, 2284-8, IMEL, SPE #### [facility] ([id number]) [address] [facility] [place] [address] #### MTHFRS #### [facility] ([id number]) [address] [place] [address] 96690 WBC (Bld) [#/Vol] 4.9 10*3/uL Normal 4.0-11.0 [facility] Comment on above: Performed By: #### 1 3965-9, CBCA, FEPR, THYR, 2276-4, 2132-9, 2284-8, IMEL, SPE #### [facility] ([id number]) [address] [place] [address], [address] [place] [address] #### MTHFRS #### [facility] ([id number]) [address] [facility], [place] [address] Clinical Pathologyon 024 Clinical Pathology Normal [facility] Comment on above: Result Comment: [facility] [address] [place] [address] Clinical Pathology Report Patient Name:ANGELA RUTH:1945 (Age: 78)Gender:FTaken:01/11/2024eported:01/14/2024hysician(s):MARCE Rayo ([phone])Copy To: Rec. #:[id number]: #[id number] Final Pathologic Diagnosis No monoclonal protein identified. Report Electronically Signed Out sb/01/12/2024duncan Alamo MD Interpretation performed [place] [address], License number: [id number]. Clinical History G25.0, R26.89, G62.9, R79.0. SERUM IEP SAMPLE NUMBER: [id number] IMMUNOGLOBULIN LEVELS (mg/dL): IgG : 652 IgA : 225 IgM : 64 Free Grady: 3.45 Free Lambda: 2.10 Free Grady/Lambda ratio: 1.64 Specimen(s) Received Serum IEP Fee Codes(s): 1; 17704-06 FERRITINon 01-11-2024 Ferritin [Mass/Vol] 47 ng/mL Normal 11-307 [facility] Comment on above: Performed By: #### 1 3965-9, CBCA, FEPR, THYR, 6-4, 2131-9, 2284-8, IMEL, SPE #### [facility] ([id number]) [address] [place] [address] #### MTHFRS #### [facility] ([id number]) [address] [place] [address] 26912 Folate [Mass/Vol]on 01-11-20 FOLIC ACID >25.0 Normal >5.8 [facility] Comment on above: Result Comment: NEW REFERENCE RANGE Performed By: #### 1 3965-9, CBCA, FEPR, THYR, 2276-4, 2131-9, 2284-8, IMEL, SPE #### [facility] ([id number]) [address] [place] [address] #### MTHFRS #### [facility] ([id number]) [address] [place] [address] 46494 HGB A1C (GLYCO-HGB)on 2023 Glucose [Mass/Vol] 108 mg/dL Normal [facility] Comment on above: Performed By: #### 1 3965-9, CBCA, FEPR, THYR, 6-4, 2131-9, 2284-8, IMEL, SPE #### [facility] ([id number]) [address] [place] [address] #### MTHFRS #### [facility] ([id number]) [address] [place] [address] 25567 HbA1c (Bld) [Mass fraction] 5.4 % Normal 4.4-5.6 [facility] Comment on above: Result Comment: NOTE [...] THYR, 2276-4, 2131-9, 2284-8, IMEL, SPE #### [facility] ([id number]) [address] [place] [address], [address] [address] #### MTHFRS #### [facility] ([id number]) [address] [place] [address] 17138 Homocysteine [Moles/Vol]on 0 01-11-2024 HOMOCYSTEINE 14.23 mcmol/L Normal 3.36-20.44 [facility] Comment on above: Performed By: #### 1 3965-9, CBCA, FEPR, THYR, 6-4, 9, 8, IMEL, SPE #### [facility] ([id number]) [address] [place] [address] #### MTHFRS #### [facility] ([id number]) [address] [place] [address] 03788 IMMUNOELECTROPHORESIS FOR TH ERAPY MONITORINGon 01-11-2024 FREE IRASEMA/LAMBD RATIO 1.64 Normal 0.26-1.65 [facility] Comment on above: Performed By: #### 1 3965-9, CBCA, FEPR, THYR, 6-4, 9, 2288, IMEL, SPE #### [facility] ([id number]) [address] [place] [address], [address] [address] #### MTHFRS #### [facility] ([id number]) [address] [place] [address] 71147 FREE KAPPA LT CHAINS 3.45 mg/dL High 0.33-1.94 [facility] Comment on above: Performed By: #### 1 3965-9, CBCA, FEPR, THYR, 2276-4, 2131-9, 4-8, IMEL, SPE #### [facility] ([id number]) [address] [place] [address] #### MTHFRS #### [facility] ([id number]) [address] [place] [address] FREE LAMBDA LT CHAINS 2.10 mg/dL Normal 0.57-2.63 [facility] Comment on above: Performed By: #### 1 3965-9, CBCA, FEPR, THYR, 6-4, 2131-9, 4-8, IMEL, SPE #### [facility] ([id number]) [address], [address] [place] [address] #### MTHFRS #### [facility] ([id number]) [address] [place] [address] IgA [Mass/Vol] 225 mg/dL Normal 68-378 [facility] Comment on above: Performed By: #### 1 3965-9, CBCA, FEPR, THYR, 6-4, 2131-9, 4-8, IMEL, SPE #### [facility] ([id number]) [address], [address] [place] [address] #### MTHFRS #### [facility] ([id number]) [address] [place] [address] IgG [Mass/Vol] 652 mg/dL Normal 635-1741 [facility] Comment on above: Performed By: #### 1 3965-9, CBCA, FEPR, THYR, 2276-4, 2-9, 2284-8, IMEL, SPE #### [facility] ([id number]) [address], [address] [place] [address] #### MTHFRS #### [facility] ([id number]) [address] [place] [address] IgM [Mass/Vol] 64 mg/dL Normal 45-281 [facility] Comment on above: Performed By: #### 1 3965-9, CBCA, FEPR, THYR, 2276-4, 2132-9, 2284-8, IMEL, SPE #### [facility] ([id number]) [address], [address] [place] [address] #### MTHFRS #### [facility] ([id number]) [address] [place] [address] IMMUNE PROFILE INTERP SEE SEPARATE REPORT Normal [facility] Comment on above: Performed By: #### 1 3965-9, CBCA, FEPR, THYR, 2276-4, 2-9, 2284-8, IMEL, SPE #### [facility] ([id number]) [address] [facility], [address] [place] [address] #### MTHFRS #### [facility] ([id number]) [address] [place] [address] IRON PROFILEon 01-11-2024 Iron [Mass/Vol] 100 ug/dL Normal 50-170 [facility] Comment on above: Performed By: #### 1 3965-9, CBCA, FEPR, THYR, 2276-4, 2132-9, 2284-8, IMEL, SPE #### [facility] ([id number]) [address] [place] [address], [facility] [address] [place] [address] #### MTHFRS #### [facility] ([id number]) [address] [place] [address] IRON BINDING 438 ug/dL High 250-425 [facility] Comment on above: Performed By: #### 1 3965-9, CBCA, FEPR, THYR, 2276-4, 2132-9, 2284-8, IMEL, SPE #### [facility] ([id number]) [address] [place] [address], [address] [place] [address] #### MTHFRS #### [facility] ([id number]) [address] [place] [address] IRON SATURATION 23 % SATURATION Normal 15-50 [facility] Comment on above: Performed By: #### 1 3965-9, CBCA, FEPR, THYR, 2276-4, 2132-9, 2284-8, IMEL, SPE #### [facility] ([id number]) [address] [place] [address], [address] [place] [address] #### MTHFRS #### [facility] ([id number]) [address] [place] [address] MTHFRon 01-11-2024 MTHFR INTERPRETATION SEE NOTE Normal [facility] Comment on above: Result Comment: NOTE Indication for testing: Determine genetic contribution to hyperhomocysteinemia. Negative: Neither of the common MTHFR gene variants tested, c.665C>T (previously designated C677T) and c.1286A>C (previously designated [id number]), were detected. Other causes of elevated homocysteine [...] has an effect on cardiovascular disease. The [employer] Practice Guidelines indicate [...] a contributing factor to hyperhomocysteinemia. Variants Tested: c.665C>T(p.Ykg052Scn) and c.1286A>C(p.Sqv246Xsu). (legacy names C677T and [id number], respectively). Clinical Sensitivity: Undefined; hyperhomocysteinemia is caused [...] developed and its performance characteristics determined by [facility]. It has not been cleared or approved by the US Food and Drug Administration. This test was performed in a CLIA certified laboratory and is intended for clinical purposes. Counseling and informed consent are recommended for genetic testing. Consent forms are available online. Performed By: [facility] [address] [place] [address] Powder Compounder: Jacob Sparks MD, PhD [place] Number: [id number] Performed By: #### 1 3965-9, CBCA, FEPR, THYR, 2276-4, 2132-07, 2284-06, CARLOS SPE #### [facility] ([id number]) [address] [place] [address], [address] [place] [address] #### MTHFRS #### [facility] ([id number]) [address] [place] [address], [place] [address] MTHFR MUT [id number] Negative Normal [facility] Comment on above: Performed By: #### 1 3965-9, CBCA, FEPR, THYR, 2276-4, 9, 2284-06, IMAMANDA, SPE #### [facility] ([id number]) [address] [place] [address], [address] [place] [address] #### MTHFRS #### [facility] ([id number]) [address] [place] [address] MTHFR MUT C665CT Negative Normal [facility] Comment on above: Performed By: #### 1 3965-9, CBCA, FEPR, THYR, 2276-4, 2-9, 2284-8, IMEL, SPE #### [facility] ([id number]) [address] [place] [address], [address] [place] [address] #### MTHFRS #### [facility] ([id number]) [address] [place] [address] MTHFR PCR SPECIMEN WHOLE BLOOD Normal [facility] Comment on above: Performed By: #### 1 3965-9, CBCA, FEPR, THYR, 6-4, 2131-9, 4-8, IMEL, SPE #### [facility] ([id number]) [address] [place] [address], [address] [place] [address] #### MTHFRS #### [facility] ([id number]) [address] [place] [address] Methylmalonate [Moles/Vol]on 01-11-2024 MMA QN 0.14 umol/L Normal <=0.40 [facility] Comment on above: Result Comment: NOTE This test was developed and its performance characteristics determined by [facility] It has not been cleared or approved by the FDA. -[facility] is regulated under CLIA as qualified to perform high-complexity testing. This test is used for clinical purposes. It should not be regarded as investigational or for research. Test Performed By: [facility] [employer] [address] [place] [address] Powder Compounder: Berry Larsen III, M.D. CLIA #[id number] Performed By: #### 1 3965-9, CBCA, FEPR, THYR, 2276-4, 2-9, 2284-8, IMEL, SPE #### [facility] ([id number]) [address], [address] [place] [address] #### MTHFRS #### [facility] ([id number]) [address] [place] [address] SERUM PROTEIN ELECTROPHORESI Son 01-11-2024 Albumin [Mass/Vol] 4.0 g/dL Normal 3.4-5.3 [facility] Comment on above: Performed By: #### 1 3965-9, CBCA, FEPR, THYR, 6-4, 2131-9, 4-8, IMEL, SPE #### [facility] ([id number]) [address], [address] [place] [address] #### MTHFRS #### [facility] ([id number]) [address] [place] [address] ALPHA 1 GLOBULIN 0.3 g/dL Normal 0.1-0.4 [facility] Comment on above: Performed By: #### 1 3965-9, CBCA, FEPR, THYR, 6-4, 2131-9, 4-8, IMEL, SPE #### [facility] ([id number]) [address], [address] [place] [address] #### MTHFRS #### [facility] ([id number]) [address] [place] [address] ALPHA 2 GLOBULIN 0.8 g/dL Normal 0.4-1.1 [facility] Comment on above: Performed By: #### 1 3965-9, CBCA, FEPR, THYR, 6-4, 2131-9, 4-8, IMEL, SPE #### [facility] ([id number]) [address], [address] [place] [address] #### MTHFRS #### [facility] ([id number]) [address] [place] [address] BETA GLOBULIN 0.8 g/dL Normal 0.5-1.2 [facility] Comment on above: Performed By: #### 1 3965-9, CBCA, FEPR, THYR, 2276-4, 2132-9, 2284-8, IMEL, SPE #### [facility] ([id number]) [address] [facility] [place] [address] #### MTHFRS #### [facility] ([id number]) [address] [place] [address] GAMMA GLOBULIN 0.7 g/dL Normal 0.5-1.6 [facility] Comment on above: Performed By: #### 1 3965-9, CBCA, FEPR, THYR, 6-4, 2131-9, 4-8, IMEL, SPE #### [facility] ([id number]) [address] [facility], [address] [place] [address] #### MTHFRS #### [facility] ([id number]) [address] [place] [address] PROT. ELECTROPHORESIS INTERP Unremarkable protein distribution, no monoclonal bands. Normal [facility] Comment on above: Performed By: #### 1 3965-9, CBCA, FEPR, THYR, 6-4, 2131-9, 4-8, IMEL, SPE #### [facility] ([id number]) [address] [facility] [place] [address] #### MTHFRS #### [facility] ([id number]) [address] [place] [address] Protein [Mass/Vol] 6.5 g/dL Normal 6.0-8.0 [facility] Comment on above: Performed By: #### 1 3965-9, CBCA, FEPR, THYR, 2276-4, 2-9, 2284-8, IMEL, SPE #### [facility] ([id number]) [address], [address] [place] [address] #### MTHFRS #### [facility] ([id number]) [address] [place] [address] THYROID PROFILEon 01-11-2024 Free T4 [Mass/Vol] 1.09 ng/dL Normal 0.61-1.60 [facility] Comment on above: Performed By: #### 1 3965-9, CBCA, FEPR, THYR, 6-4, 2131-9, 4-8, IMEL, SPE #### [facility] ([id number]) [address] [facility] [address] [place] [address] #### MTHFRS #### [facility] ([id number]) [address] [place] [address] TSH 0.60 uIU/mL Normal 0.49-4.67 [facility] Comment on above: Performed By: #### 1 3965-9, CBCA, FEPR, THYR, 6-4, 2131-9, 4-8, IMEL, SPE #### [facility] ([id number]) [address] [facility] [place] [address] #### MTHFRS #### [facility] ([id number]) [address] [place] [address] VITAMIN B12on 01-11-2024 Cobalamin (Vitamin B12) [Mass/Vol] 407 pg/mL Normal 180-914 [facility] Comment on above: Performed By: #### 1 3965-9, CBCA, FEPR, THYR, 2276-4, 2-9, 2284-8, IMEL, SPE #### [facility] ([id number]) [address], [address] [place] [address] #### MTHFRS #### [facility] ([id number]) [address] [facility], [place] [address] DEXA SCAN CENTRAL SKELETALon 12-06-2023 DEXA SCAN [...] Ann MD on 12/06/2023 2:10 AM Normal [facility] CT Abdomen/Pelvis w + w/o Co [...] by Felix Dominguez on 12/07/2022 1159 Normal [facility] XR HAND LEFT (MIN 3 VIEWS)on [...] Matt Cowart MD 11/07/22 Final result Normal [facility] XR HAND LEFT (MIN 3 VIEWS) [...] Matt Cowart MD 11/07/22 Final result Normal [facility] XR Chest 2 Views*on 09-10-20 XR [...] by Bartolome Monson on 09/10/2022 1507 Normal [facility] Complete Blood Count with Au to Diffon 12-11-2021 Basophils (Bld) [#/Vol] 0.07 10*3/uL Normal 0.00-0.20 [facility] Comment on above: Performed By: #### C LG, CBCAD #### [facility] [address] [place], [place] [id number] Basophils/100 WBC (Bld) 0.9 % Normal [facility] Comment on above: Performed By: #### C LG, CBCAD #### [facility] [address] [place], [place] [id number] Eosinophils (Bld) [#/Vol] 0.17 10*3/uL Normal 0.02-0.50 [facility] Comment on above: Performed By: #### C LG, CBCAD #### [facility] [address] [place], [place] [id number] Eosinophils/100 WBC (Bld) 2.3 % Normal [facility] Comment on above: Performed By: #### C LG, CBCAD #### [facility] [address] [place], [place] [id number] Erythrocyte distribution width (RBC) [Ratio] 16.4 % High 11.0-15.0 [facility] Comment on above: Performed By: #### C LG, CBCAD #### [facility] [address] [place], [place] [id number] Hematocrit (Bld) [Volume fraction] 42.9 % Normal 35.0-47.0 [facility] Comment on above: Performed By: #### C LG, CBCAD #### [facility] [address] [place], [place] [id number] Hemoglobin (Bld) [Mass/Vol] 13.5 g/dL Normal 11.6-15.5 [facility] Comment on above: Performed By: #### C MP, CBCAD #### [facility] [address] [place], [place] [id number] Lymphocytes (Bld) [#/Vol] 2.7 10*3/uL Normal 0.9-3.9 [facility] Comment on above: Performed By: #### C MP, CBCAD #### [facility] [address] [place], [place] [id number] Lymphocytes/100 WBC (Bld) 36.1 % Normal [facility] Comment on above: Performed By: #### C MP, CBCAD #### [facility] [address] [place], [place] [id number] MCH (RBC) [Entitic mass] 27.7 pg Normal 27.0-33.0 [facility] Comment on above: Performed By: #### C MP, CBCAD #### [facility] [address] [place], [place] [id number] MCHC (RBC) [Mass/Vol] 31.5 g/dL Low 32.0-36.0 [facility] Comment on above: Performed By: #### C MP, CBCAD #### [facility] [address] [place], [place] [id number] MCV (RBC) [Entitic vol] 88 fL Normal 80-100 [facility] Comment on above: Performed By: #### C MP, CBCAD #### [facility] [address] [place], [place] [id number] Monocytes (Bld) [#/Vol] 0.8 10*3/uL Normal 0.2-0.9 [facility] Comment on above: Performed By: #### C MP, CBCAD #### [facility] [address] [place], [place] [id number] Monocytes/100 WBC (Bld) 10.8 % Normal [facility] Comment on above: Performed By: #### C MP, CBCAD #### [facility] [address] [place], [place] [id number] Neutrophils (Bld) [#/Vol] 3.7 10*3/uL Normal 1.5-7.8 [facility] Comment on above: Performed By: #### C MP, CBCAD #### [facility] [address] [place], [place] [id number] Neutrophils/100 WBC (Bld) 49.2 % Normal [facility] [employer] Comment on above: Performed By: #### C MP, CBCAD #### [facility] [address] [place], [place] [id number] Platelet mean volume (Bld) [Entitic vol] 11.00 fL Normal 7.50-12.50 [facility] Comment on above: Performed By: #### C MP, CBCAD #### [facility] [address] [place], [place] [id number] Platelets (Bld) [#/Vol] 246 10*3/uL Normal 140-400 [facility] Comment on above: Performed By: #### C MP, CBCAD #### [facility] [address] [place], [place] [id number] RBC (Bld) [#/Vol] 4.88 10*6/uL Normal 3.90-5.20 [facility] [employer] Comment on above: Performed By: #### C MP, CBCAD #### [facility] [address] [place], [place] [id number] RDW-SD 53.1 fL High 37.0-50.0 [facility] Comment on above: Performed By: #### C MP, CBCAD #### [facility] [address] [place], [place] [id number] WBC (Bld) [#/Vol] 7.5 10*3/uL Normal 3.8-11.0 [facility] Comment on above: Performed By: #### C MP, CBCAD #### [facility] [address] [place], [place] [id number] [facility] 12-11-2021 Albumin [Mass/Vol] 4.2 g/dL Normal 3.6-5.1 [facility] Comment on above: Performed By: #### C MP, CBCAD #### [facility] [address] [place], [place] [id number] Albumin/Globulin [Mass ratio] 1.7 {ratio} Normal 1.0-2.5 [facility] Comment on above: Performed By: #### C MP, CBCAD #### [facility] [address] [place], [place] [id number] ALP [Catalytic activity/Vol] 71 U/L Normal 35-119 [facility] Comment on above: Performed By: #### C MP, CBCAD #### [facility] [address] [place], [place] [id number] ALT [Catalytic activity/Vol] 12 U/L Normal 6-33 [facility] Comment on above: Result Comment: 10/22 Female reference range changed. Performed By: #### C MP, CBCAD #### [facility] [address] [place], [place] [id number] Anion gap [Moles/Vol] 18 mmol/L Normal 12-20 [facility] Comment on above: Result Comment: Effe ctive 11/27/2019 reference range changed. Performed By: #### C MP, CBCAD #### [facility] [address] [place], [place] [id number] AST [Catalytic activity/Vol] 15 U/L Normal 9-34 [facility] Comment on above: Performed By: #### C MP, CBCAD #### [facility] [address] [place], [place] [id number] Bilirubin [Mass/Vol] 0.33 mg/dL Normal 0.30-1.20 [facility] Comment on above: Performed By: #### C MP, CBCAD #### [facility] [address] [place], [place] [id number] BUN/CREA 35 Ratio High 6-22 [facility] Comment on above: Performed By: #### C MP, CBCAD #### [facility] [address] [place], [place] [id number] Calcium [Mass/Vol] 9.4 mg/dL Normal 8.6-10.2 [facility] Comment on above: Performed By: #### C MP, CBCAD #### [facility] [address] [place], [place] [id number] Chloride [Moles/Vol] 106 mmol/L Normal 98-107 [facility] Comment on above: Performed By: #### C MP, CBCAD #### [facility] [address] [place], [place] [id number] CO2 [Moles/Vol] 24 mmol/L Normal 20-31 [facility] Comment on above: Performed By: #### C MP, CBCAD #### [facility] [address] [place], [place] [id number] Creatinine [Mass/Vol] 0.9 mg/dL Normal 0.6-1.4 [facility] Comment on above: Performed By: #### C MP, CBCAD #### [facility] [address] [place], [place] [id number] eGFRAA 70 mL/min/1.73m2 Normal >60 [facility] Comment on above: Performed By: #### C MP, CBCAD #### [facility] [address] [place], [place] [id number] eGFRNAA 58 mL/min/1.73m2 Low >60 [facility] Comment on above: Performed By: #### C LG, CBCAD #### [facility] [address] [place], [place] [id number] Globulin (S) [Mass/Vol] 2.5 g/dL Normal 1.9-3.7 [facility] Comment on above: Performed By: #### C MP, CBCAD #### [facility] [address] [place], [place] [id number] Glucose [Mass/Vol] 84 mg/dL Normal 65-99 [facility] Comment on above: Result Comment: For FASTING Glucose --- ADA reference ranges: Normal 65-99 mg/dl Prediabetes 100-125 Diabetes >/= 126 Performed By: #### C MP, CBCAD #### [facility] [address] [place], [place] [id number] Potassium [Moles/Vol] 4.3 mmol/L Normal 3.5-5.5 [facility] Comment on above: Performed By: #### C MP, CBCAD #### [facility] [address] [place], [place] [id number] Protein [Mass/Vol] 6.7 g/dL Normal 6.1-8.1 [facility] Comment on above: Performed By: #### C MP, CBCAD #### [facility] [address] [place], [place] [id number] Sodium [Moles/Vol] 143 mmol/L Normal 135-146 [facility] [place] [facility] Comment on above: Performed By: #### C MP, CBCAD #### [facility] [address] [place], [place] [id number] Urea nitrogen [Mass/Vol] 33 mg/dL High 7-25 [facility] Comment on above: Performed By: #### C MP, CBCAD #### [facility] [address] [place], [place] [id number] Calciumon 06-20-2019 Calcium [Mass/Vol] 10.0 mg/dL Normal 8.4-10.2 [facility] Comment on above: Performed By: #### 1 030, 1035, 4500, 4510, 4520, 4581 #### [facility] Unless Otherwise Noted [address] [address] / COLA #4724/CLIA # [id number] Creatinineon 06-20-2019 Creatinine [Mass/Vol] 0.9 mg/dL Normal 0.5-1.0 [facility] Comment on above: Performed By: #### 1 030, 1035, 4500, 4510, 4520, 4581 #### [facility] Unless Otherwise Noted [address] [facility] [address] [place] [address] / [facility] #4724/CLIA # [id number] Creatinine [Mass/Vol] 74.8 Kg Normal [facility] Comment on above: Performed By: #### 1 030, 1035, 4500, 4510, 4520, 4581 #### [facility] Unless Otherwise Noted [address] [address] / COLA #4724/CLIA # [id number] Creatinine [Mass/Vol] 64.8 ml/m1.73 Normal [facility] Comment on above: Performed By: #### 1 030, 1035, 4500, 4510, 4520, 4581 #### [facility] Unless Otherwise Noted [address] [address] / COLA #4724/CLIA # [id number] Creatinine [Mass/Vol] 65.1 ml/m1.73 Normal [facility] Comment on above: Performed By: #### 1 030, 1035, 4500, 4510, 4520, 4581 #### [facility] Unless Otherwise Noted [address] [address] / COLA #4724/CLIA # [id number] Creatinine [Mass/Vol] 78.7 ml/m1.73 Normal [facility] and Diabetes [facility] Comment on above: Performed By: #### 1 030, 1035, 4500, 4510, 4520, 4581 #### [facility] Unless Otherwise Noted [address] [address] / COLA #4724/CLIA # [id number] FT3on 06-20-2019 FT3 2.80 pg/mL Normal 2.45-5.93 [facility] Comment on above: Performed By: #### 1 030, 1035, 4500, 4510, 4520, 4581 #### [facility] Unless Otherwise Noted [address] [address] / COLA #4724/CLIA # [id number] FT4on 06-20-2019 Free T4 [Mass/Vol] 1.93 ng/dL Normal 0.78-2.44 [facility] Diabetes [facility] Comment on above: Performed By: #### 1 030, 1035, 4500, 4510, 4520, 4581 #### [facility] Unless Otherwise Noted [address] [address] / COLA #4724/CLIA # [id number] TSHon 06-20-2019 TSH Qn 0.57 uIU/ml Normal 0.47-4.68 [facility] Comment on above: Performed By: #### 1 030, 1035, 4500, 4510, 4520, 4581 #### [facility] and [facility] Unless Otherwise Noted [address] [address] / COLA #4724/CLIA # [id number] VITAMIN D 25on 06-20-2019 VITAMIN D 25 51.5 ng/ml Normal 30.0-100.0 [facility] Comment on above: Result Comment: Defi cient <20 Insufficient 20-<30 Sufficient 30-100 Potiential Toxicity >100 Performed By: #### 1 030, 1035, 4500, 4510, 4520, 4581 #### [facility] and [facility] Unless Otherwise Noted [address] [place] [address] / COLA #4724/CLIA # [id number] Basic Metabolic Profon 05-06 (cont.) Normal [facility] Comment on above: Result Comment: Aver age GFR for 70 or more years old: 75 mL/min/1.73sq mChronic Kidney Disease: <60 mL/min/1.73sq mKidney failure: <15 mL/min/1.73sq meGFR calculated using average adult body mass. Additional eGFR calculator available at:http://www.haku.com/multiple_crcl_2012.htmPerformed at [facility] [address] [place] [address] Performed By: #### C DP, BMP ####[facility] [place] [address] Anion gap 14 mmol/L Normal 9-17 [facility] Comment on above: Performed By: #### C DP, BMP ####[facility] [place] [address] Calcium 9.6 mg/dL Normal 8.6-10.4 [facility] Comment on above: Performed By: #### C DP, BMP ####[facility] [place] [address] Chloride 106 mmol/L Normal 98-107 [facility] Comment on above: Performed By: #### C DP, BMP ####[facility] [place] [address] CO2 26 mmol/L Normal 20-31 [facility] Comment on above: Performed By: #### C DP, BMP ####[facility] [place] [address] Creatinine 0.91 mg/dL High 0.50-0.90 [facility] Comment on above: Performed By: #### C DP, BMP ####[facility] [place] [address] eGFR (non-black) mL/min/{1.73_m2} Normal >60 [facility] Comment on above: Performed By: #### C DP, BMP ####[facility] [place] [address] Glucose mass conc 99 mg/dL Normal 70-99 [facility] Comment on above: Performed By: #### C DP, BMP ####[facility] [place] [address] Potassium molar conc 4.2 mmol/L Normal 3.7-5.3 [facility] Comment on above: Performed By: #### C DP, BMP ####[facility] [place] [address] Sodium 146 mmol/L High 135-144 [facility] Comment on above: Performed By: #### C DP, BMP ####[facility] [place] [address] Urea nitrogen 21 mg/dL Normal 8-23 [facility] Comment on above: Performed By: #### C DP, BMP ####[facility] [place] [address] BUN/CRE Ratio NOT REPORTED Normal 9-20 [facility] Comment on above: Performed By: #### C DP, BMP ####[facility] [place] [address] Staging: NOT REPORTED Normal [facility] Comment on above: Performed By: #### C DP, BMP ####[facility] [place] [address] CBC with Diffon 05-06-2018 Abs. Basophil 0.10 k/uL Normal 0.0-0.2 [facility] Comment on above: Result Comment: Perf ormed at [facility] [address] [place] [address] Performed By: #### C DP, BMP ####[facility] [place] [address] Abs.Neutrophil (Seg) 4.00 k/uL Normal 1.3-9.1 [facility] Comment on above: Performed By: #### C DP, BMP ####[facility] [facility] [place] [address] Basophils/100 WBC Auto (Bld) 1 % Normal 0-2 [facility] Comment on above: Performed By: #### C DP, BMP ####[facility] [place] [address].[place] [address] Eosinophils 0.20 10*3/uL Normal 0.0-0.4 [facility] Comment on above: Performed By: #### C DP, BMP ####[address] [place] [address] Eosinophils/100 leukocytes 2 % Normal 0-4 [facility] Comment on above: Performed By: #### C DP, BMP ####[address] [place] [address] Erythrocyte distribution width Auto Ratio (RBC) 13.9 % Normal 11.5-14.9 [facility] Comment on above: Performed By: #### C DP, BMP ####[address] [address] Erythrocytes (RBC) 4.68 10*6/uL Normal 4.0-5.2 [facility] Comment on above: Performed By: #### C DP, BMP ####[address] [address] Hematocrit (HCT) 41.8 % Normal 36-46 [facility] Comment on above: Performed By: #### C DP, BMP ####[address] [address] Hemoglobin mass conc (Bld) 13.7 g/dL Normal 12.0-16.0 [facility] Comment on above: Performed By: #### C DP, BMP ####[address] [place] [address] Lymphocytes 3.20 10*3/uL Normal 1.0-4.8 [facility] Comment on above: Performed By: #### C DP, BMP ####[facility] [place] [address].[place] [address] Lymphocytes/100 leukocytes 39 % Normal 24-44 [facility] Comment on above: Performed By: #### C DP, BMP ####[facility] [facility] [place] [address] MCH 29.3 pg Normal 26-34 [facility] Comment on above: Performed By: #### C DP, BMP ####[facility] [place] [address] MCHC mass conc (RBC) 32.8 g/dL Normal 31-37 [facility] Comment on above: Performed By: #### C DP, BMP ####[facility] [place] [address] MCV 89.3 fL Normal 80-100 [facility] Comment on above: Performed By: #### C DP, BMP ####[facility] [place] [address] Monocytes 0.90 10*3/uL Normal 0.1-1.3 [facility] Comment on above: Performed By: #### C DP, BMP ####[facility] [place] [address] Monocytes/100 leukocytes 11 % High 1-7 [facility] Comment on above: Performed By: #### C DP, BMP ####[facility] [place] [address].[place] [address] Neutrophil (Seg) 47 % Normal 36-66 [facility] Comment on above: Performed By: #### C DP, BMP ####[facility] [facility] [place] [address] Platelet mean volume (PMV) 10.3 fL Normal 6.0-12.0 [facility] Comment on above: Performed By: #### C DP, BMP ####[facility] [place] [address] Platelets 232 10*3/uL Normal 150-450 [facility] Comment on above: Performed By: #### C DP, BMP ####[facility] [place] [address] WBC (Leukocytes) 8.4 10*3/uL Normal 3.5-11.0 [facility] Comment on above: Performed By: #### C DP, BMP ####[facility] [facility] [place] [address] Auto Diff Performed NOT REPORTED Normal [facility] Comment on above: Performed By: #### C DP, BMP ####[facility] [facility] [place] [address] Erythrocyte morphology NOT REPORTED Normal [facility] Comment on above: Performed By: #### C DP, BMP ####[facility] [facility] [place] [address] Erythrocytes (RBC) NOT REPORTED Normal [facility] Comment on above: Performed By: #### C DP, BMP ####[facility] [place], [place] [address]e [facility] [place] [address] Granulocytes/100 WBC (Bld) NOT REPORTED Normal 0.00-0.30 [facility] Comment on above: Performed By: #### C DP, BMP ####[facility] [place], [place] [address] [place] [address] Immature granulocytes #/vol (Bld) NOT REPORTED Normal 0 [facility] Comment on above: Performed By: #### C DP, BMP ####[facility] [facility] [place] [address] Platelets NOT REPORTED Normal [facility] Comment on above: Performed By: #### C DP, BMP ####[facility] [facility] [place] [address] WBC Morphology NOT REPORTED Normal [facility] Comment on above: Performed By: #### C DP, BMP ####[facility] [facility] [place] [address] Vital Signs Date Time Vital Sign Value Performing Clinician Leyda nevarez 04-04-2024 11:29-0400 Body height 160 cm Mandi Hoover MD Work Phone: [facility] 04-04-2024 11:29-0400 Body mass index (BMI) [Ratio] 27.18 kg/m2 Mandi Hoover MD Work Phone: [facility] 04-04-2024 11:29-0400 Body temperature 97.7 [degF] Mandi Hoover MD Work Phone: [facility] 04-04-2024 11:29-0400 Body weight 69.6 kg Mandi Hoover MD Work Phone: [facility] 04-04-2024 11:29-0400 Diastolic blood pressure 65 mm[Hg] Mandi Hoover MD Work Phone: [facility] 04-04-2024 11:29-0400 Heart rate 80 /min Mandi Hoover MD Work Phone: [facility] 04-04-2024 11:29-0400 Respiratory rate 18 /min Mandi Hoover MD Work Phone: [facility] 04-04-2024 11:29-0400 SaO2% (BldA) [Mass fraction] 96 % Mandi Hoover MD Work Phone: [facility] 04-04-2024 11:29-0400 Systolic blood pressure 105 mm[Hg] Mandi Hoover MD Work Phone: [facility] 02-24-2024 12:02-0400 Body height 160 cm Ryan Dallas MD Work Phone: [facility] 02-24-2024 12:02-0400 Body mass index (BMI) [Ratio] 27.21 kg/m2 Ryan Dallas MD Work Phone: [facility] 02-24-2024 12:02-0400 Body weight 69.67 kg Ryan Dallas MD Work Phone: [facility] 02-24-2024 12:02-0400 Diastolic blood pressure 76 mm[Hg] Ryan Dallas MD Work Phone: [facility] 02-24-2024 12:02-0400 Heart rate 78 /min Ryan Dallas MD Work Phone: [facility] 02-24-2024 12:02-0400 Respiratory rate 16 /min Ryan Dallas MD Work Phone: [facility] 02-24-2024 12:02-0400 SaO2% (BldA) [Mass fraction] 94 % Ryan Dallas MD Work Phone: [facility] 02-24-2024 12:02-0400 Systolic blood pressure 147 mm[Hg] Ryan Dallas MD Work Phone: [facility] 01-07-2024 10:29-0500 Body height 160 cm Yoanna Dorsey ROOMING HOUSE OPERATOR-GRAINER MACHINE Work Phone: [facility] 01-07-2024 10:29-0500 Body mass index (BMI) [Ratio] 27.63 kg/m2 Yoanna Dorsey ROOMING HOUSE OPERATOR-GRAINER MACHINE Work Phone: [facility] 01-07-2024 10:29-0500 Body weight 70.76 kg Yoanna Dorsey APRN-GRAINER MACHINE Work Phone: [facility] 01-07-2024 10:29-0500 Diastolic blood pressure 78 mm[Hg] Yoanna Dorsey ROOMING HOUSE OPERATOR-GRAINER MACHINE Work Phone: [facility] 01-07-2024 10:29-0500 Heart rate 80 /min Yoanna Dorsey ROOMING HOUSE OPERATOR-GRAINER MACHINE Work Phone: [facility] 01-07-2024 10:29-0500 Systolic blood pressure 124 mm[Hg] Yoanna Dorsey ROOMING HOUSE OPERATOR-GRAINER MACHINE Work Phone: [facility] Encounters Encounter Date Encounter Type Care Provider Facility Start: 07-13-2024 End: 07-13-2024 ambulatory [facility] Start: 07-10-2024 End: 07-10-2024 ambulatory BIA CAO Not Available Start: 07-10-2024 End: 07-10-2024 ambulatory [facility] Start: 07-03-2024 End: 07-03-2024 [facility] Start: 06-14-2024 End: 06-14-2024 ambulatory [facility] Start: 05-09-2024 Orders Only Mandi gambino MD Work Phone: [facility] Comment on above: Intracranial meningi brandon (HCC) (Primary Dx); Benign neoplasm of meninges (HCC) Start: 05-04-2024 End: 05-04-2024 ambulatory BIA CAO Not Available Start: 05-01-2024 End: 05-01-2024 ambulatory Adelfo Hansen MD Facility: [facility] Start: 04-05-2024 End: 04-05-2024 ambulatory BIA CAO Not Available Start: 04-04-2024 End: 04-04-2024 ambulatory MANDI HOOVER Facility:[facility] Start: 04-04-2024 End: 04-04-2024 Patient encounter procedure Mandi Hoover MD Work Phone: [facility] Comment on above: Intracranial meningi brandon (HCC) (Primary Dx); Sensorineural hearing loss (SNHL) of right ear, unspecified hearing status on contralateral side; Dizziness Start: 04-03-2024 End: 04-03-2024 ambulatory BIA CAO Not Available Start: 03-24-2024 Telephone encounter Neurology Provid er Neurology Comment on above: Received Outside [facility] (External referral to Neurological [facility]/); triage; Nurse Triage Call; Appointment Start: 03-24-2024 End: 03-24-2024 ambulatory ILEANA CORTES [facility] Start: 03-16-2024 ambulatory BIA CAO [facility] Start: 03-13-2024 End: 03-13-2024 ambulatory Adelfo Hansen MD Facility:[facility] Start: 03-10-2024 End: 03-10-2024 ambulatory YOANNA [facility] Start: 03-02-2024 End: 03-02-2024 ambulatory BIA CAO Not Available Start: 02-24-2024 End: 02-24-2024 Office outpatient visit 15 minutes Ryan Dallas MD Work Phone: [facility] Comment on above: Essential hypertensi on (Primary Dx); LVH (left ventricular hypertrophy); Mixed hyperlipidemia; Hypotension due to drugs Start: 02-22-2024 End: 02-22-2024 ambulatory BIA CAO Not Available Start: 02-15-2024 End: 02-15-2024 ambulatory BIA CAO Not Available Start: 02-11-2024 End: 02-12-2024 Emergency department patient visit JUAN A JOI [facility] Start: 02-10-2024 Orders Only Ryan aquino MD Work Phone: [facility] Comment on above: Essential hypertensi on Start: 02-09-2024 Refill [facility] Start: 02-07-2024 End: 02-07-2024 ambulatory [facility] Start: 01-18-2024 End: 01-18-2024 ambulatory RIA SNYDER Not Available Start: 01-12-2024 End: 01-12-2024 ambulatory RIA SNYDER Not Available Start: 01-11-2024 End: 01-11-2024 ambulatory [facility] Start: 01-10-2024 End: 01-10-2024 ambulatory Adelfo Hansen MD Facility:[facility] Start: 01-07-2024 End: 01-07-2024 Office outpatient visit 25 minutes [facility] ROOMING HOUSE OPERATOR-GRAINER MACHINE Work Phone: [facility] Comment on above: Migraine without aur a and without status migrainosus, not intractable (Primary Dx); Bilateral occipital neuralgia; Essential tremor; Cervicalgia; Trapezius muscle spasm; Balance problem; Psychophysiological insomnia; Polyneuropathy; Prediabetes; Essential (primary) hypertension; Abnormal level of blood mineral; Decreased hearing of both ears Start: 01-07-2024 End: 01-07-2024 ambulatory [facility] Start: 01-06-2024 End: 01-06-2024 ambulatory Ria Snyder SOFT CRAB SHEDDER Work Phone: [facility] Comment on above: General weakness (Pr imary Dx); History of falling Start: 01-04-2024 Bamboo flowsheet Ria Masters ht SOFT CRAB SHEDDER Work Phone: [facility] Start: 01-04-2024 Bamboo flowsheet Ria Masters ht SOFT CRAB SHEDDER Work Phone: [facility] Start: 01-04-2024 End: 01-04-2024 ambulatory Ria Snyder SOFT CRAB SHEDDER Work Phone: [facility] Comment on above: General weakness (Pr imary Dx); History of falling Start: 01-03-2024 Refill Bia Gaxiola Work Phone: [facility] Comment on above: Mixed hyperlipidemia (CMS/HCC) (Primary Dx); Stress incontinence of urine Start: 12-31-2023 End: 12-31-2023 ambulatory RIA SNYDER Not Available Start: 12-30-2023 Chart abstracting Elmer Dumont gs PT Work Phone: [facility] Start: 12-28-2023 End: 12-28-2023 ambulatory RIA SNYDER Not Available Start: 12-23-2023 End: 12-23-2023 ambulatory Ria Snyder SOFT CRAB SHEDDER Work Phone: [facility] Comment on above: General weakness (Pr imary Dx); History of falling Start: 12-21-2023 End: 12-21-2023 ambulatory RIA SNYDER Not Available Start: 12-16-2023 End: 12-16-2023 ambulatory RIA SNYDER Not Available Start: 12-13-2023 Refyuval aggarwal MD Work Phone: [facility] Start: 12-08-2023 End: 12-08-2023 ambulatory ELMER Mima WILVER Not Available Start: 12-07-2023 End: 12-07-2023 ambulatory SANTO GARCIA Not Available Start: 12-06-2023 End: 12-06-2023 ambulatory BIA CAO Not Available Start: 12-03-2023 End: 12-03-2023 ambulatory JOHN JOHNSON [facility] Start: 11-29-2023 End: 11-29-2023 ambulatory LALIT [facility] Start: 11-23-2023 End: 11-23-2023 ambulatory BIA CAO Not Available Start: 11-11-2023 End: 11-11-2023 ambulatory ELMER DUMONTGS Not Available Start: 11-08-2023 End: 11-08-2023 ambulatory RIA SNYDER Not Available Start: 11-04-2023 End: 11-04-2023 ambulatory ELMER DUMONTGS Not Available Start: 10-22-2023 End: 10-22-2023 ambulatory BIA CAO Not Available Start: 09-06-2023 End: 09-06-2023 ambulatory Adelfo Hansen MD Facility: [facility] Start: 07-19-2023 End: 07-19-2023 ambulatory Adelfo Hansen MD Facility: [facility] Start: 07-05-2023 End: 07-05-2023 ambulatory Adelfo Hansen MD Facility:[facility] Start: 10-12-2022 End: 10-12-2022 ambulatory [facility] Start: 09-28-2022 End: 09-28-2022 ambulatory [facility] Start: 05-16-2018 End: 05-16-[address] [facility] Start: 05-06-2018 End: 05-11-[address] [facility] Start: 05-02-2018 Patient encounter status Antonietta Johnson MD [facility] [employer] Work Phone: Procedures Date Procedure Procedure Detail Performing Clinician Start: 03-24-2024 Follow-up visit Follow-up ILEANA CORTES Start: 01-07-2024 Adult depression scr eening assessment Yoanna Dorsey ROOMING HOUSE OPERATOR-GRAINER MACHINE Work Phone: Start: 11-29-2023 Follow-up visit Follow-up [...] Author Start: 02-10-2027 Diabetes Screening Diabetes Screening [facility] Start: 02-10-2025 Adult BMI Screening Adult BMI Screening [facility] Start: 01-07-2025 Adult BMI Screening Adult BMI Screening [facility] Start: 01-07-2025 Depression Screening Depression Screening [facility] Start: 01-07-2025 Tobacco Screening Tobacco Screening [facility] Start: 12-06-2024 Medicare Annual Wellness (AWV) Medicare Annual Wellness (AWV) [facility] Start: 11-29-2024 Adult BMI Screening Adult BMI Screening [facility] Start: 11-29-2024 Tobacco Screening Tobacco Screening [facility] Start: 10-01-2024 Fall Risk Screening Fall Risk Screening [facility] Start: 08-28-2024 End: 06-08-2025 MR Brain WO and W contrast IV MRI BRAIN WO/W IVCON Radiology Routine Benign neoplasm of meninges (HCC) Expected: 08/28/2024 (Approximate), Expires: 06/08/2025 [facility] Work Phone: Comment on above: Expected: 08/28/2024 (Approximate), Expi res: 06/08/2025 Start: 07-23-2024 Influenza vaccination [facility] Start: 07-10-2024 End: 07-10-2024 Patient encounter procedure 07/10/2024 11:00 AM EDT Office Visit [facility] [address] [place] [address] Yoanna Dorsey, ROOMING HOUSE OPERATOR-GRAINER MACHINE [address] [place] [address] [facility] Start: 05-21-2024 Influenza vaccination Influenza Vaccine (#1) [facility] Comment on above: Postponed from 07/23/2023 (Patient Refus ed) Start: 04-23-2024 Depression Screening Depression Screening [facility] Start: 04-11-2024 End: 04-11-2024 Patient encounter procedure 04/11/2024 2:45 PM EDT Off ice Visit [facility] [address] [place] [address] John Johnson MD [address] [place] [address] [facility] Start: 04-04-2024 End: 04-04-2024 Patient encounter procedure 04/04/2024 10:30 AM EDT Office Visit [facility] [address] [address] [place] [address] Mandi Hoover MD [address] [place] [address] Time Frame: First available [facility] Comment on above: Time Frame: First available Start: 04-03-2024 End: 04-03-2024 Patient encounter procedure 04/03/2024 11:20 AM EDT Office Visit [facility] [address] [place] [phone] Bia Cao MD [address] [place], [place] [phone] [facility] Start: 02-09-2024 End: 02-09-2024 Patient encounter procedure 02/09/2024 11:00 AM EDT [facility] [address] [facility] [address] [place] [id number] Ryan Dallas MD [address] [facility] [place] [address] [facility] Start: 01-20-2024 End: 01-20-2024 ambulatory 01/20/2024 11:00 AM EST Treatment [facility] [address] [place] [address] Elmer Salazar, PT [address] [place] [address] [facility] Start: 01-18-2024 End: 01-18-2024 ambulatory 01/18/2024 11:30 AM EST Treatment [facility] [address] [place] [phone] Ria Snyder, SOFT CRAB SHEDDER [address] [place] [address] [facility] Start: 01-14-2024 End: 01-14-2024 ambulatory 01/14/2024 1:00 PM EST Treatment [facility] [address] [place] [phone] Ria Snyder, SOFT CRAB SHEDDER [address] [place] [address] [facility] Start: 01-12-2024 End: 01-12-2024 ambulatory 01/12/2024 12:30 PM EST Treatment [facility] [address] [place] [phone] Ria Snyder, SOFT CRAB SHEDDER [address] [place] [address] [facility] Start: 01-11-2024 End: 01-11-2024 Patient encounter procedure 01/11/2024 11:00 AM EST Office Visit [facility] [address] [place] [address] Yoanna Dorsey APRN-GRAINER MACHINE [address] [place] [address] [facility] Start: 01-06-2024 End: 01-06-2024 ambulatory [facility] Start: 01-04-2024 End: 01-04-2024 ambulatory 01/04/2024 11:30 AM EST Treatment [facility] [address] [place] [address] Ria Snyder, SOFT CRAB SHEDDER [address] [place] [address] [facility] Start: 12-31-2023 End: 12-31-2023 ambulatory 12/31/2023 10:00 AM EST Treatment [facility] [address] [place] [address] Ria Snyder, SOFT CRAB SHEDDER [address] [place] [address] [facility] Start: 12-30-2023 End: 12-30-2023 ambulatory 12/30/2023 11:30 AM EST Treatment [facility] [address] [place] [address] Elmer Salazar, PT [address] [place] [address] [facility] Start: 12-28-2023 End: 12-28-2023 ambulatory 12/28/2023 11:30 AM EST Treatment [facility] [address] [place] [address] Ria Snyder, SOFT CRAB SHEDDER [address] [place] [address] [facility] Start: 11-22-2023 Advance Directive Discussion Advance Directive Discussion [facility] Start: 11-22-2023 Behavioral Health Screening Behavioral Health Screening [facility] Start: 07-23-2023 COVID-19 Vaccine () COVID-19 Vaccine () [facility] Start: 07-23-2023 Influenza vaccination Influenza Vaccine [facility] Start: 08-21-2021 DTaP,Tdap and Td Vaccines (2 - Td or Tdap) DTaP,Tdap and Td Vaccines (2 - Td or Tdap) [facility] Start: 08-22-2011 Urine microalbumin profile DTaP,Tdap,Td Vaccine (1 - Tdap) [facility] Start: 01-17-2010 Administration of varicella zoster vaccine Zoster (Shingles) Vaccine (2 of 3) [facility] Start: 2005 RSV Vaccine (1 - 1-dose 60+ series) RSV Vaccine (1 - 1-dose 60+ series) [facility] Start: 1995 Shingrix Vaccine (1 of 2) Shingrix Vaccine (1 of 2) [facility] Start: 1963 Adult BMI Follow Up Plan Adult BMI Follow Up Plan [facility] Start: 1963 Hepatitis C screening Hepatitis C Screening [facility] Start: 1945 Medicare Annual Wellness Visit Medicare Annual Wellness Visit [facility] End: 01-07-2025 CBC W Auto Differential panel - Blood CBC auto differential Lab Routine Essential tremor Balance problem Polyneuropathy 1 Occurrences starting 01/07/2024 until 01/07/2025 [facility] Comment on above: 1 Occurrences starting 01/07/2024 until 01/07/2025 End: 01-07-2025 Cyanocobalamin vitamin b-12 Vitamin B12 Lab Routine Balance problem Polyneuropathy 1 Occurrences starting 01/07/2024 until 01/07/2025 [facility] Comment on above: 1 Occurrences starting 01/07/2024 until 01/07/2025 End: 01-07-2025 Ferritin [Mass/volume] in Serum or Plasma Ferritin Lab Routine Polyneuropathy Abnormal level of blood mineral 1 Occurrences starting 01/07/2024 until 01/07/2025 [facility] Comment on above: 1 Occurrences starting 01/07/2024 until 01/07/2025 End: 01-07-2025 Folate [Mass/volume] in Serum or Plasma Folate Serum Lab Routine Balance problem Polyneuropathy 1 Occurrences starting 01/07/2024 until 01/07/2025 [facility] Comment on above: 1 Occurrences starting 01/07/2024 until 01/07/2025 End: 01-07-2025 Hemoglobin A1c/Hemoglobin.total in Blood Hemoglobin A1c Lab Routine Balance problem Polyneuropathy Prediabetes 1 Occurrences starting 01/07/2024 until 01/07/2025 [employer] Comment on above: 1 Occurrences starting 01/07/2024 until 01/07/2025 End: 01-07-2025 Homocysteine total Homocysteine total Lab Routine Balance problem Polyneuropathy Essential (primary) hypertension 1 Occurrences starting 01/07/2024 until 01/07/2025 [employer] Comment on above: 1 Occurrences starting 01/07/2024 until 01/07/2025 End: 01-07-2025 Immunoelectrophoresis for Therapy Monitoring Immunoelectrophoresis for Therapy Monitoring Lab Routine Balance problem Polyneuropathy 1 Occurrences starting 01/07/2024 until 01/07/2025 [employer] Comment on above: 1 Occurrences starting 01/07/2024 until 01/07/2025 End: 01-07-2025 Iron and TIBC Iron and TIBC Lab Routine Essential tremor Balance problem Polyneuropathy Abnormal level of blood mineral 1 Occurrences starting 01/07/2024 until 01/07/2025 [employer] Comment on above: 1 Occurrences starting 01/07/2024 until 01/07/2025 End: 01-07-2025 Methylenetetrahydrofolate reductase Methylenetetrahydrofolate reductase Lab Routine Balance problem Polyneuropathy 1 Occurrences starting 01/07/2024 until 01/07/2025 [employer] Comment on above: 1 Occurrences starting 01/07/2024 until 01/07/2025 End: 01-07-2025 Methylmalonic acid screen Methylmalonic acid screen La b Routine Balance problem Polyneuropathy 1 Occurrences starting 01/07/2024 until 01/07/2025 [employer] Work Phone: Comment on above: 1 Occurrences starting 01/07/2024 until 01/07/2025 End: 01-07-2025 Protein electrophoresis, serum Protein electrophoresis, serum Lab Routine Balance problem Polyneuropathy 1 Occurrences starting 01/07/2024 until 01/07/2025 [employer] Comment on above: 1 Occurrences starting 01/07/2024 until 01/07/2025 End: 01-07-2025 Thyroid profile includes TSH FT4 Thyroid profile includes TSH FT4 Lab Routine Balance problem Polyneuropathy Prediabetes 1 Occurrences starting 01/07/2024 until 01/07/2025 [facility] Comment on above: 1 Occurrences starting 01/07/2024 until 01/07/2025 Immunizations Immunization Date Immunization Notes Care Provider Frank seymour 03-12-2021 COVID-19, mRNA, LNP- S, PF, 100mcg/0.5mL Dose John Johnson MD Work Phone: [facility] 03-11-2021 Moderna SARS-CoV-2 Vaccination Ria Snyder SOFT CRAB SHEDDER Work Phone: [facility] 02-12-2021 COVID-19, mRNA, LNP- S, PF, 100mcg/0.5mL Dose John Johnson MD Work Phone: [facility] 02-11-2021 Moderna SARS-CoV-2 Vaccination Ria Snyder SOFT CRAB SHEDDER Work Phone: [facility] 11-12-2020 pneumococcal conjuga te vaccine, 13 valent John Johnson MD Work Phone: [facility] 09-17-2020 influenza, high dose seasonal, preservative-free John Johnson MD Work Phone: [facility] 09-17-2020 Seasonal, quadrivale nt, recombinant, injectable influenza vaccine, preservative free John Johnson MD Work Phone: [facility] 09-17-2020 influenza virus vacc ine, unspecified formulation John Johnson MD Work Phone: [facility] 08-30-2019 Seasonal, quadrivale nt, recombinant, injectable influenza vaccine, preservative free John Johnson MD Work Phone: [facility] 08-29-2018 influenza, injectabl e, quadrivalent, preservative free John Johnson MD Work Phone: [facility] 08-22-2015 influenza, seasonal, injectable, preservative free Ria Snyder SOFT CRAB SHEDDER Work Phone: [facility] 08-13-2015 pneumococcal polysaccharide vaccine, 23 valent Ria Snyder SOFT CRAB SHEDDER Work Phone: [facility] 08-21-2011 tetanus and diphther ia toxoids, adsorbed, preservative free, for adult use (5 Lf of tetanus toxoid and 2 Lf of diphtheria toxoid) John Johnson MD Work Phone: [facility] 11-22-2009 zoster vaccine, live Juan Snyder SOFT CRAB SHEDDER Work Phone: [facility] 11-22-2009 zoster vaccine, unspecified formulation John Johnson MD Work Phone: [facility] Payers Date Payer Category Payer Private Health Insurance 2021 Medicare [phone]. [id number] 2021 Medicare [id number] 2012 Medicare [id number] 1945 Unknown [id number] 2.16. 840.1.366192.3.579.2.175 1945 Unknown [id number] 2.16. 840.1.543728.3.579.2.175 1945 Unknown [id number] 2.16.84 0.1.150730.3.579.2.1286 1945 Unknown [id number] 2.16. 840.1.274004.3.579.2.196 1945 Unknown [id number] 2.16. 840.1.270150.3.579.2. 1945 Unknown [id number] 2.16. 840.1.298122.3.579.2.196 1945 Unknown [id number] 2.16. 840.1.164275.3.579.2. 1945 Unknown [id number] 2.16. 840.1.251881.3.579.2.196 1945 Unknown [id number] 2.16. 840.1.035751.3.579.2.196 1945 Unknown [id number] 2.16. 840.1.945983.3.579.2. 1945 Unknown [id number] 2.16.8 40.1.771574.3.579.2.128 1945 Unknown [id number] 2.16.8 40.1.591489.3.579.2.1285 1945 Unknown [id number] 2.16.8 40.1.799932.3.579.2.1285 1945 Unknown [id number] 2.16.8 40.1.182461.3.579.2.1285 1945 Unknown [id number] 2.16.8 40.1.202802.3.579.2.1285 1945 Unknown [id number] 2.16.8 40.1.356270.3.579.2.1285 1945 Unknown [id number] 2.16.8 40.1.050087.3.579.2.1285 1945 Unknown [id number] 2.16.84 0.1.555249.3.579.2.1285 1945 Unknown [id number] 2.16.8 40.1.249442.3.579.2.1285 1945 Unknown [id number] 2.16.8 40.1.625688.3.579.2.1286 194 Unknown [id number] 2.16.8 40.1.597511.3.579.2.1285 1945 Unknown [id number] 2.16.8 40.1.403228.3.579.2.1286 194 Unknown [id number] 2.16.8 40.1.912607.3.579.2.1285 1945 Unknown [id number] 2.16.8 40.1.380834.3.579.2.1286 1945 Unknown [id number] 2.16.84 0.1.289469.3.579.2.1259 1945 Unknown [id number] 2.16.84 0.1.212943.3.579.2.1259 1945 Unknown [id number] 2.16.84 0.1.776615.3.579.2.1259 1945 Unknown [id number] 2.16.84 0.1.539796.3.579.2.1259 1945 Unknown [id number] 2.16.84 0.1.769456.3.579.2.1259 1945 Unknown [id number] 2.16.84 0.1.740441.3.579.2.1259 -08-1945 Unknown [id number] 2.16.84 0.1.462463.3.579.2.1259 -08-1945 Unknown [id number] 2.16.84 0.1.732198.3.579.2.1259 1945 Unknown [id number] 2.16.84 0.1.619969.3.579.2.1259 -08-1945 Unknown [id number] 2.16.84 0.1.725241.3.579.2.1259 -08-1945 Unknown [id number] 2.16.84 0.1.233352.3.579.2.1259 -08-1945 Unknown [id number] 2.16.84 0.1.824145.3.579.2.1259 1945 Unknown [id number] 2.16.84 0.1.256237.3.579.2.1259 1945 Unknown [id number] 2.16.84 0.1.026076.3.579.2.1259 -08-1945 Unknown [id number] 2.16.84 0.1.779510.3.579.2.1259 1945 Unknown [id number] 2.16.84 0.1.225565.3.579.2.1259 1945 Unknown [id number] 2.16.84 0.1.432243.3.579.2.1259 1945 Unknown [id number] 2.16.84 0.1.075163.3.579.2.1259 1945 Unknown [id number] 2.16.84 0.1.528577.3.579.2.1259 1945 Unknown [id number] 2.16.84 0.1.021054.3.579.2.125 1945 Unknown [id number] 2.16.84 0.1.114676.3.579.2.1259 1945 Unknown [id number] 2.16.84 0.1.056824.3.579.2.1258 1945 Unknown [id number] 2.16.840 .1.427300.3.579.2.1259 1945 Unknown [id number] 2.16.840 .1.079761.3.579.2.1258 1945 Unknown [id number] 2.16.840 .1.784643.3.579.2.9 1945 Unknown [id number] 2.16.840 .1.422571.3.579.2.1258 1945 Unknown [id number] 2.16840 .1.923264.3.579.2.1259 Social History Date Type Detail Facility Start: 01-27-2018 End: 11-29-2023 Tobacco smoking status NHIS Never smoked tobacco [facility] History of tobacco use Passive smoker [facility] Start: 01-27-2018 End: 11-29-2023 Tobacco use and exposure Smokeless tobacco non-user [facility] Start: 11-29-2023 End: 04-04-2024 Alcohol intake Current non-drinker of alcohol (finding) [facility] Start: 11-29-2023 End: 04-04-2024 Alcohol intake [facility] Start: 11-29-2023 End: 04-04-2024 Tobacco use panel [facility] Adolescent depressio n screening assessment 0 [facility] Start: 1945 Sex Assigned At Female [facility] Start: 05-22-2021 Gender identity Identifies as female gender (finding) [facility] Start: 05-22-2021 Sexual orientation Heterosexual (finding) [facility] Start: 12-07-2023 Alcohol intake Current drinker of alcohol (finding) [facility] Start: 05-04-2023 Alcohol Comment caffeine: occasional [facility] Start: 1945 Sex Assigned At Not on file [facility] Medical Equipment Procedure Code Equipment Code Equipment Origin al Text Equipment Identifier Dates Patch Dura 1x1in Drmtrx-[place] + Clgn Rgnrt Membr Strl - [id number] Start: 07-03-2021 Goals Date Patient Goal [...] months - please follow up with your customer program manager (we do not think the etiology of your hearing loss is due to your meningioma) - our team will notify Dr. Bia Cao regarding these findings; we recommend investigating other etiologies of imbalance in Mrs. Ruth documented in this encounter [facility] 04-04-2024 Note HNO ID: [id number] Author: MANDI HOOVER MD Service: ? Author Type: Physician Type: Progress Notes Filed: 04/05/2024 17:50 Note Text: SECTION OF SKULL BASE SURGERY MINIMALLY INVASIVE CRANIAL BASE AND PITUITARY SURGERY PROGRAM Jessica Caro [facility] [place] CC: Patient Care Team: Bia Cao as PCP ([facility]) Ileana Cortes MD as NI Referring Team [...] ([place] preference). - follow up with customer program manager for hearing loss which is unrelated to [...] Patient is accompanied by her granddaughter (her mechanic welder truck driver) and great grand daughter). The [...] contrast and shows a 1.2 cm R COLLECTIONS CLERK contrast-enhancing lesion concerning for either schwannoma or meningioma- no associated mass effect or edema. The patient takes ASA 81 mg daily for cardioprotection per her PCP. The patient has been using a cane for the last 5-6 years. The patient reports that ~6 weeks ago, she walked into her garage door and fell. The patient has not seen an customer program manager or a vestibular therapist. Past Medical History: [...] mg (VYTORIN) 10-40 (more content not included)... [facility] 04-04-2024 Nurse Note Additional intake questions: Has the patient had fever, nausea, vomiting, diarrhea, constipation, fatigue for > 1 week? No Does the patient have a decreased appetite? No Does patient want to see a Wind Farm Engineer? No (yes to any of above refer patient to schedulers for dietitian appointment) ) Does patient have any new or increased numbness or tingling of extremities? No Is patient interested in fertility information? No Does patient need any prescription refills? No Does patient have an advanced directive in place? Yes, no copy found in [facility] Patient referred to [facility] Electronically Signed By: Josette Sheppard MA [facility] 04-04-2024 Nurse Note Additional intake questions: Has the patient had fever, nausea, vomiting, diarrhea, constipation, fatigue for > 1 week? No Does the patient have a decreased appetite? No Does patient want to see a Wind Farm Engineer? No (yes to any of above refer patient to schedulers for dietitian appointment) ) Does patient have any new or increased numbness or tingling of extremities? No Is patient interested in fertility information? No Does patient need any prescription refills? No Does patient have an advanced directive in place? Yes, no copy found in [facility] Patient referred to [facility] Electronically Signed By: Josette Sheppard MA documented in this encounter [facility] 04-04-2024 History of Presen t illness Narrative Images from the original note were not included. SECTION OF SKULL BASE SURGERY MINIMALLY INVASIVE CRANIAL BASE & PITUITARY SURGERY PROGRAM Jessica Car[facility] [place] CC: Patient Care Team: Bia Cao as PCP ([facility]) Ileana Cortes MD as NI Referring Team [...] 6 months with a repeat MRI scan ([place] preference) and clinic visit with one of our skull base team advance practice providers ([place] preference). - follow up with customer program manager for hearing loss which is unrelated to [...] Patient is accompanied by her granddaughter (her mechanic welder truck driver) and great grand daughter). The [...] contrast and shows a 1.2 cm R COLLECTIONS CLERK contrast-enhancing lesion concerning for either schwannoma or meningioma- no associated mass effect or edema. The patient takes ASA 81 mg daily for cardioprotection per her PCP. The patient has been using a cane for the last 5-6 years. The patient reports that ~6 weeks ago, she walked into her garage door and fell. The patient has not seen an customer program manager or a vestibular therapist. Past Medical History: [...] contrast and shows a 1.2 cm R COLLECTIONS CLERK contrast-enhancing lesion extra-axial mass arising from the right posterior petrous ridge with no significant mass effect and not abutting the right vestibular cochlear complex. documented in this encounter [facility] 03-28-2024 Telephone encounter Note Called patient to schedule an appointment. No ans/left message to call the office back. Appointment scheduled: 04/04/2024 10:30 AM (Arrive by 10:15 AM) Mandi Hoover MD [facility] RAMAN Alonso [facility] 03-28-2024 Miscellaneous Notes Called patient to schedule an appointment. No ans/left message to call the office back. Appointment scheduled: 04/04/2024 10:30 AM (Arrive by 10:15 AM) Mandi Hoover MD [facility] RAMAN Alonso Time Frame: First available Provider: Kiko Landrum Soni Referring: Ileana Cortes MD Images to be requested from [facility] Dx: Right CPA mass Patient: Angela Ruth Address: Angela Ruth [id number] [place] [address] [facility] [id number] Per Triage: HISTORY OF PRESENT ILLNESS Angela [...] extracranial soft tissues are unremarkable. Vanesa Morgan APRN.GRAINER MACHINE March 28, 2024 Referral source: Ileana Cortes MD ([facility]) Reason for visit: consideration of gamma knife for 1.2 cm enhancing lesion at right cerebelloponitine angle with leading differential including vestibular schwannoma and meningioma External records: Sent with referral and pulled from [facility] Triage: Required, forwarded to [facility] by telephone encounter sent to [facility] Scheduling Triage. Financial clearance: Not required to schedule documented in this encounter [facility] 03-28-2024 Telephone encounter Note Time Frame: First available Provider: Kiko Landrum Soni Referring: Ileana Cortes MD Images to be requested from [facility] Dx: Right CPA mass Patient: Angela Ruth Address: Angela Ruth [id number] [place] [address] [facility] [id number] Per Triage: HISTORY OF PRESENT ILLNESS Angela [...] unremarkable. Vanesa Morgan APRN.MAHENDRA March 28, 2024 [facility] 03-24-2024 Telephone encounter Note Referral source: Ileana Cortes MD ([facility]) Reason for visit: consideration of gamma knife for 1.2 cm enhancing lesion at right cerebelloponitine angle with leading differential including vestibular schwannoma and meningioma External records: Sent with referral and pulled from [facility] Triage: Required, forwarded to [facility] by telephone encounter sent to [facility] Scheduling Triage. Financial clearance: Not required to schedule [facility] 02-24-2024 History of Presen t [...] Breast disorder 4 biopsies Bronchitis 01/01/2017 Cancer ([facility]) Basal cell Carpal tunnel syndrome Cataract Chronic [...] at [facility] ENDOSCOPY COSMETIC SURGERY 1985 DISCECTOMY 1989 Partial L4-5 EGD 2001 EYE SURGERY 2015 FOOT SURGERY 2009 Reattachment of tendon left foot with bone graft HIP SURGERY 2004 Excision of bursa left hip HYSTERECTOMY 1984 INJECTION BLOCK EPIDURAL STEROID LUMBAR/SACRAL Left L 5,1 NR Left 12/20/2020 Performed by Shubham Clifton MD at [facility] BLOCK NERVE MEDIAL BRANCH right C 4/5,5/6 Right 05/22/2022 Performed by Shubham Clifton MD at [facility] BLOCK NERVE MEDIAL BRANCH right C 4/5,5/6 Right 04/17/2022 Performed by Shubham Clifton MD at [facility] CAUDAL EPIDURAL WITH CATHETER, STEROID N/A 03/07/2018 Performed by Shubham Clifton MD at [facility] LARGE JOINT BURSA: bilat hip Bilateral 12/10/2017 Performed by Shubham Clifton MD at [facility] MEDIAL BRANCH NERVE BLOCK Bilateral L 4/5, 5/1 Bilateral 06/28/2017 Performed by Shubham Clifton MD at [facility] MEDIAL BRANCH NERVE BLOCK Right L 2/3, 3/4 Right 12/08/2019 Performed by Shubham Clifton MD at [facility] MEDIAL BRANCH NERVE BLOCK RIGHT L23 34 Right 01/19/2020 Performed by Shubham Clifton MD at [facility] INJECTION SI JOINT Bilateral 04/09/2017 Performed by Shubham Clifton MD at [facility] INJECTION SI JOINT Bilateral SI Joint Bilateral 05/31/2020 Performed by Shubham Clifton MD at [facility] INJECTION SI JOINT Left SI JOint Left 01/06/2019 Performed by Shubham Clifton MD at [facility] SI JOINT Right SI Joint Right 06/09/2019 Performed by Shubham Clifton MD at [facility] SPINE TRANSFORAMINAL Left L 4, 5 NR Left 09/24/2017 Performed by Shubham Clifton MD at [facility] INJECTION SPINE TRANSFORAMINAL Left L 5,1 Nroot Left 01/08/2023 Performed by Shubham Clifton MD at [facility] INJECTION SPINE TRANSFORAMINAL Right L 5,1 Nroot Right 11/27/2022 Performed by Shubham Clifton MD at [facility] STEROID EPI 1 WITH SEDATION Left 5,1 NR Left 05/08/2019 Performed by Shubham Clifton MD at [facility] KNEE ARTHROSCOPY 2010, 2013 KNEE SURGERY 2010 2013 Arthroscopy bilateral/repair meniscus right X2, left X1 LAMINECTOMY LUMBAR FORAMENOTOMY MULTI LEVEL L1-2 RIGHT/L2-3 BILATERAL/LUMBAR DRAIN INSERTION N/A 07/03/2021 Performed by Ileana Cortes MD at [facility] LAPAROTOMY OOPHERECTOMY Bilateral 1984 LUMBAR DISCECTOMY LUMBAR FUSION 2010 L3-5 LUMBAR LAMINECTOMY MICRO LUMBAR DISCECTOMY L5-S1/ FORAMINOTOMY L5-S1 Left 01/14/2017 Performed by Ileana Cortes MD at [facility] OOPHORECTOMY 1982 OTHER SURGICAL HISTORY Knee Arthroscopy With Medial Meniscus Repair OTHER SURGICAL HISTORY Spinal Diskectomy RADIO FREQUENCY ABLATION Left L 4/5, 5/1 Left 12/02/2018 Performed by Shubham Clifton MD at [facility] RADIO FREQUENCY ABLATION Left L 4/5, 5/1 Left 07/30/2017 Performed by Shubham Clifton MD at [facility] RADIO FREQUENCY ABLATION Left SI joint Left 03/31/2019 Performed by Shubham Clifton MD at [facility] RADIO FREQUENCY ABLATION Right L2/3, 3/4 Right 03/29/2020 Performed by Shubham Clifton MD at [facility] RADIOFREQUENCY ABLATION SPINAL Left Si joint Left 05/07/2017 Performed by Shubham Clifton MD at [facility] RADIOFREQUENCY ABLATION SPINAL Right C 4/5,5/6 Right 06/26/2022 Performed by Shubham Clifton MD at [facility] RADIOFREQUENCY ABLATION SPINAL RIGHT SI JOINT Right 05/21/2017 Performed by Shubham Clifton MD at [facility] RELEASE CARPAL TUNNEL Left 11/04/2021 Performed by Ileana Cortes MD at [facility] SHOULDER SURGERY 2011 Right rotator cuff [...] mouth in the morning., Disp: , Rfl: hmcfdmy-bedoralyahvor-lmqrhrse (EXCEDRIN MIGRAINE) 250-250-65 mg per tablet, Take 1 tablet by mouth every 6 (six) hours as needed for headaches., Disp: , Rfl: atorvastatin (LIPITOR) 40 mg tablet, Take 1 tablet (40 mg total) by mouth in the morning., Disp: , Rfl: buprenorphine (BUTRANS) 7.5 mcg/hour patch weekly, Place 1 patch on the skin once a week., Disp: , Rfl: qerprolbct-eluzhgevzmsba-mcke (ESGIC) 50-325-40 mg per tablet, Take 1 [...] (FOSAMAX) 35 mg tablet Dose adjustment pediatric oxgyvsgn-olhk-btw ([facility] complete) tablet,chewable Duplicate Listing Total time spent was 30 minutes which did not include ytkj-wf-qjsw contact with the patient: Preparing to see the patient (e.g., review of tests) Obtaining and/or reviewing separately obtained history Referring and communicating with other health health care facilities inspector (not separately reported) Documenting clinical information in the electronic or other health record Independently interpreting results (not separately reported) and communicating results to the patient/family/caregiver The note was completed using EMR. Every effort was made to ensure accuracy; however, inadvertent computerized terrazzo installer errors may be present. CARDIOVASCULAR STUDIES: EKG: No results found. ECHO: No results found. Stress Test: No results found. Cath: No results found. Device: Other: RYAN DALLAS MD documented in this encounter [employer] 02-09-2024 Miscellaneous Notes Patient called and stated [...] Modules accepted: Orders documented in this encounter [facility] 02-09-2024 Note Addended by: Anna HAWKINS on: 02/10/2024 12:55 PM Modules accepted: Orders [facility] 02-09-2024 Telephone encounter Note Patient called and stated her bp has been elevated. She c/o Headache. 184/92, 224/95 217/93 she took an extra 50mg hydralazine as you have directed PRN and bp 146/78. Please advise going forward. [facility] 02-09-2024 Telephone encounter Note Increase hydralazine to 100 mg twice a day [facility] 02-09-2024 Telephone encounter Note I left patient a voicemail to call me back to verify the dose she is taking now of hydralazine. [facility] 02-09-2024 Telephone encounter Note I spoke to patient and she stated she is taking hydralazine 100mg daily. She is reluctant to try BID as it previously caused hypotension. Patient will try and then keep a bp log. [facility] 01-07-2024 History of Presen t [...] (migraines) Inderal (tremors) Gabapentin 200 mg nightly [place] PRN Occipital nerve blocks (last 03/2021) Tizanidine [...] Breast disorder 4 biopsies Bronchitis 01/01/2017 Cancer ([facility]) Basal cell Carpal tunnel syndrome Cataract Chronic [...] 12/20/2020 Performed by Shubham Clifton MD at [facility] NERVE MEDIAL BRANCH right C 4/5,5/6 Right 05/22/2022 Performed by Shubham Clifton MD at [facility] BLOCK NERVE MEDIAL BRANCH right C 4/5,5/6 Right 04/17/2022 Performed by Shubham Clifton MD at [facility] CAUDAL EPIDURAL WITH CATHETER, STEROID N/A 03/07/2018 Performed by Shubham Clifton MD at [facility] LARGE JOINT BURSA: bilat hip Bilateral 12/10/2017 Performed by Shubham Clifton MD at [facility] MEDIAL BRANCH NERVE BLOCK Bilateral L 4/5, 5/1 Bilateral 06/28/2017 Performed by Shubham Clifton MD at [facility] MEDIAL BRANCH NERVE BLOCK Right L 2/3, 3/4 Right 12/08/2019 Performed by Shubham Clifton MD at [facility] MEDIAL BRANCH NERVE BLOCK RIGHT L23 34 Right 01/19/2020 Performed by Shubham Clifton MD at [facility] SI JOINT Bilateral 04/09/2017 Performed by Shubham Clifton MD at [facility] SI JOINT Bilateral SI Joint Bilateral 05/31/2020 Performed by Shubham Clifton MD at [facility] SI JOINT Left SI JOint Left 01/06/2019 Performed by Shubham Clifton MD at [facility] SI JOINT Right SI Joint Right 06/09/2019 Performed by Shubham Clifton MD at [facility] SPINE TRANSFORAMINAL Left L 4, 5 NR Left 09/24/2017 Performed by Shubham Clifton MD at [facility] INJECTION SPINE TRANSFORAMINAL Left L 5,1 Nroot Left 01/08/2023 Performed by Shubham Clifton MD at [facility] INJECTION SPINE TRANSFORAMINAL Right L 5,1 Nroot Right 11/27/2022 Performed by Shubham Clifton MD at [facility] INJECTION STEROID EPI 1 WITH SEDATION Left 5,1 NR Left 05/08/2019 Performed by Shubham Clifton MD at [facility] KNEE ARTHROSCOPY 2010, 2013 KNEE SURGERY 2010 2013 Arthroscopy bilateral/repair meniscus right X2, left X1 LAMINECTOMY LUMBAR FORAMENOTOMY MULTI LEVEL L1-2 RIGHT/L2-3 BILATERAL/LUMBAR DRAIN INSERTION N/A 07/03/2021 Performed by Ileana Cortes MD at [facility] LAPAROTOMY OOPHERECTOMY Bilateral 1984 LUMBAR DISCECTOMY LUMBAR FUSION 2009 L3-5 LUMBAR LAMINECTOMY MICRO LUMBAR DISCECTOMY L5-S1/ FORAMINOTOMY L5-S1 Left 01/14/2017 Performed by Ileana Cortes MD at [facility] OOPHORECTOMY 1982 OTHER SURGICAL HISTORY Knee Arthroscopy With Medial Meniscus Repair OTHER SURGICAL HISTORY Spinal Diskectomy RADIO FREQUENCY ABLATION Left L 4/5, 5/1 Left 12/02/2018 Performed by Shubham Clifton MD at [facility] RADIO FREQUENCY ABLATION Left L 4/5, 5/1 Left 07/30/2017 Performed by Shubham Clifton MD at [facility] RADIO FREQUENCY ABLATION Left SI joint Left 03/31/2019 Performed by Shubham Clifton MD at [facility] RADIO FREQUENCY ABLATION Right L2/3, 3/4 Right 03/29/2020 Performed by Shubham Clifton MD at [facility] RADIOFREQUENCY ABLATION SPINAL Left Si joint Left 05/07/2017 Performed by Shubham Clifton MD at [facility] RADIOFREQUENCY ABLATION SPINAL Right C 4/5,5/6 Right 06/26/2022 Performed by Shubham Clifton MD at [facility] RADIOFREQUENCY ABLATION SPINAL RIGHT SI JOINT Right 05/21/2017 Performed by Shubham Clifton MD at [facility] RELEASE CARPAL TUNNEL Left 11/04/2021 Performed by Ileana Cortes MD at [facility] SHOULDER SURGERY 2011 Right rotator cuff [...] mg total) by mouth in the morning. sanjlxl-lqlgiysyhberu-eikdroym (EXCEDRIN MIGRAINE) 250-250-65 mg per tablet Take 1 tablet by mouth every 6 (six) hours as needed for headaches. atorvastatin (LIPITOR) 40 mg tablet Take 1 tablet (40 mg total) by mouth in the morning. buprenorphine (BUTRANS) 7.5 mcg/hour patch weekly Place 1 patch on the skin once a week. xzsqshgavk-trxlqooagbfyg-peid (ESGIC) 50-325-40 mg per tablet Take 1 [...] procedures Referring and communicating with other health health care facilities inspector (not separately reported) Documenting clinical information in the electronic or other health record Independently interpreting results (not separately reported) and communicating results to the patient/family/caregiver Care coordination (not separately reported) - Yoanna Dorsey DNP, APRN-CNP 01/07/24 10:53 AM [facility] Rayo 01/07/24 1053 documented in this encounter [facility] 01-07-2024 Instructions CHACE Rayo - [...] earlier if needed. documented in this encounter [facility] 12-13-2023 Miscellaneous Notes Okay to sign and send documented in this encounter [facility] 12-13-2023 Telephone encounter Note Okay to sign and send [facility] Evaluation note Diagnosis General weakness- Primary Other malaise and fatigue History of falling documented in this encounter [facility] HealthcareEvaluation note* Diagnosis Mixed hyperlipidemia (CMS/HCC)- Primary Mixed hyperlipidemia Stress incontinence of urine documented in this encounter [facility] HealthcareEvaluation note* Diagnosis General weakness- Primary Other malaise and fatigue History of falling documented in this encounter [facility] HealthcareEvaluation note* Diagnosis General weakness- Primary Other malaise and fatigue History of falling documented in this encounter [facility] HealthcareEvaluation note* Diagnosis Migraine without [...] of both ears [facility] Diagnosis Essential hypertension Unspecified essential hypertension [facility] Diagnosis Essential hypertension Unspecified essential hypertension documented in [facility]* Diagnosis Essential hypertension- Primary Unspecified essential hypertension LVH (left ventricular hypertrophy) Cardiomegaly Mixed hyperlipidemia Hypotension due to drugs Other iatrogenic hypotension documented in [facility]* Diagnosis Brain mass [G93.89]- Primary Unspecified condition of brain [facility] Diagnosis Intracranial meningioma (HCC)- Primary Benign neoplasm of cerebral meninges Sensorineural hearing loss (SNHL) of right ear, unspecified hearing status on contralateral side Dizziness Dizziness and giddiness documented [facility] Diagnosis Intracranial meningioma (HCC)- Primary Benign neoplasm of cerebral meninges Benign neoplasm of meninges (HCC) Benign neoplasm of cerebral meninges documented in this encounter [facility]ructionsNot on filedocumented in this encounterNor[facility] SystemInstructionsNot on filedocumented in this encounterPro[facility] SystemInstructionsNot on filedocumented in this encounterPro[facility] SystemInstructionsNot on filedocumented in this encounterProC[facility] Summary Purpose Family History No Family History Records FoundNo Family History Records FoundNo Family History Records FoundNo Family History Records FoundNo Family History Records FoundNo Family History Records FoundNo Family History Records FoundNo Family History Records FoundNo Family History Records FoundNo Family History Records Found Advance Directives No Advanced Directives Records FoundDocuments on File Type Date Recorded Patient Manager Urology Expl anation Durable Power of Awning Hanger 07/16/2021 3:45 PM Living Will 07/16/2021 3:40 [...] Documents on File Type Date Recorded Patient Manager Urology Expl anation Durable Power of Awning Hanger 07/16/2021 3:45 PM Living Will 07/16/2021 3:40 [...] ears Procedures Hearing Evaluation (Audiology) Yoanna Dorsey, [employer]INE [address] [place] [address] Referral ID Status Reason Start Date Expiration Date V isits Requested Visits Authorized [id number] Pending Review 01/07/2024 01/06/2025 1 1 Specialty Diagnoses / Procedures Referred By Violette t Referred To Contact MR IMAGING Diagnoses Benign neoplasm of meninges (HCC) Procedures MRI BRAIN WO/W IVCON MRI BRAIN BRAIN STEM W/O W/CONTRAST MATERIAL Mandi Hoover MD [address] [place] [address] Mr [facility] [place] [address] Referral ID Status Reason Start Date Expiration Date Visits Requested Visits Authorized [id number] Pending Review Auto-Generat ed Referral 08/28/2024 06/08/2025 1 1 Additional Source Comments INFORMATION SOURCE (unrecogn ized section and content) DATE CREATED AUTHOR 05/16/2018 [facility] DATE CREATED AUTHOR AUTHOR'S ORGANIZ ATION 06/21/[facility] DATE CREATED AUTHOR AUTHOR'S ORGANIZ ATION 11/13/2022 [facility] DATE CREATED AUTHOR AUTHOR'S ORGANIZ ATION 12/07/2022 [facility] dical Specialist DATE CREATED AUTHOR AUTHOR'S ORGANIZ ATION 12/04/2023 [facility] DATE CREATED AUTHOR AUTHOR'S ORGANIZ ATION 04/08/2024 [facility] DATE CREATED AUTHOR AUTHOR'S ORGANIZ ATION 05/10/2024 [facility] DATE CREATED AUTHOR AUTHOR'S ORGANIZ ATION 07/11/2024 [facility] DATE CREATED AUTHOR AUTHOR'S ORGANIZ ATION 07/15/2024 [facility] DATE CREATED AUTHOR AUTHOR'S ORGANIZ ATION 07/16/2024 [facility] dical Specialists EPIC Reason for Visit (unrecogniz ed section and content) Reason Onset Date Comments Med Refill 12/13/2023 Specialty Diagnoses / Procedures Referred By Violette staley Referred To Contact Physical Therapy Diagnoses Muscle weakness (generalized) Procedures TREATMENT Bia Cao MD [address] [place] [address] Elmer Salazar, PT [address] [place] [address] Referral ID Status Reason Start Date Expiration Date V isits Requested Visits Authorized [id number] Authorized 12/08/2023 06/05/2024 99 99 Reason Comments Med Refill Reason Comments Blood Pressure Check Reason Comments Received Outside Medical Records Externa l referral to Neurological Scott triage Nurse Triage Call Appointment Reason Comments Consult Care Teams (unrecognized sec tion and content) Boiler Inspector Relationship Specialty Start Date End Date Bia Cao MD [address] [facility] [place] [address] PCP - General Family Medicine 02/05/23 Boiler Inspector Relationship Specialty Start Date End Date Jacob Viveros PCP - [employer] 11/22/22 Bia Cao MD [address] [place] [address] PCP - General Family Medicine 04/29/23 Boiler Inspector Relationship Specialty Start Date End Date Jacob Viveros PCP - [employer] 11/22/22 Bia Cao MD [address] [place] [address] PCP - General Family Medicine 04/29/23 Boiler Inspector Relationship Specialty Start Date End Date Jacob Viveros PCP - [employer] 11/22/22 Bia Cao MD [address] [facility] [place] [address] PCP - General Family Medicine 04/29/23 Boiler Inspector Relationship Specialty Start Date End Date Jacob Viveros PCP - [employer] 11/22/22 Bia Cao MD [address] [place] [address] PCP - General Family Medicine 04/29/23 Boiler Inspector Relationship Specialty Start Date End Date Jacob Viveros PCP - [employer] 11/22/22 Bia Cao MD [address] [facility] [place] [address] PCP - General Family Medicine 04/29/23 Boiler Inspector Relationship Specialty Start Date End Date SouthviewJacob Anny PCP - [employer] 11/22/22 Bia Cao MD [address] [place] [address] PCP - General Family Medicine 04/29/23 Boiler Inspector Relationship Specialty Start Date End Date Bia Cao MD [address] [facility] [place] [address] PCP - General Family Medicine 02/05/23 Boiler Inspector Relationship Specialty Start Date End Date Bia Cao MD [address] [facility] [place] [address] PCP - General Family Medicine 02/05/23 Boiler Inspector Relationship Specialty Start Date End Date Bia Cao MD [address] [facility] [place] [address] PCP - General Family Medicine 02/05/23 Boiler Inspector Relationship Specialty Start Date End Date Bia Cao MD [address] [facility] [place] [address] PCP - General Family Medicine 02/05/23 Boiler Inspector Relationship Specialty Start Date End Date (Hist), No Pcp PCP - General 11/04/17 Ileana Cortes MD [address] [place] [address] NI Referring Team Neurosurgery 03/24/24 Boiler Inspector Relationship Specialty Start Date End Date (Hist), No Pcp PCP - General 11/04/17 Ileana Cortes MD [address] [facility] [address] [place] [address] NI Referring Team Neurosurgery 03/24/24 Boiler Inspector Relationship Specialty Start Date End Date (Hist), No Pcp PCP - General 11/04/17 Ileana Cortes MD [address] [facility] [address] [place] [address] NI Referring Team Neurosurgery 03/24/24 Source Comments (unrecognize d section and content) In the event this informatio n is protected by the Federal Confidentiality of Alcohol and Drug Abuse Patient Records regulations: The Federal rules restrict any use of the information to criminally investigate or prosecute any alcohol or drug abuse patient.[facility] Hospital[facility] the event this information is protected by the Federal Confidentiality of Alcohol and Drug Abuse Patient Records regulations: The Federal rules restrict any use of the information to criminally investigate or prosecute any alcohol or drug abuse patient.[facility] HospitalIn the event this information is protected by the Federal Confidentiality of Alcohol and Drug Abuse Patient Records regulations: The Federal rules restrict any use of the information to criminally investigate or prosecute any alcohol or drug abuse patient.[facility] FOR RECORDS PERTAINING TO PATIENTS [...] BE BASED ON THE PRIMARY CLINICAL RECORDS. [facility] provides no warranty or guarantee of the accuracy or completeness of information in this document.
[2024-07-17 10:15] VITALS: BP 117/75; PULSE 75; TEMP 36.6; O2SAT 96
[2024-07-17] MEDS: BUPIVACAINE HCL 0.25% PF 25 MG/10 ML VIAL INJ (10:48)
[2024-07-17] MEDS: TRIAMCINOLONE ACETONIDE 40 MG/ML VIAL 80 MG INJ (10:48)
[2024-07-17] MEDS: IOHEXOL 240 MG/ML - 10 ML VIAL INJ (10:48)
[2024-07-17] MEDS: 0.9 % SODIUM CHLORIDE 10 ML SYRINGE - SALINE FLUSH INJ (10:48)
[2024-07-17 10:49] VITALS: BP 135/65; BP 160/71; PULSE 84; PULSE 86; O2SAT 93
[2024-07-17] MEDS: LIDOCAINE HCL 2% 400 MG/20 ML MDV 5 ML INJ (10:49)
--- NOTE | 2024-07-17 10:51 | W.PM.PROCNOT ---
Date of procedure: 07/17/24 Pre-op diagnosis: Pain due to lumbar stenosis with neurogenic claudication Post-op diagnosis: same as pre-op Procedure: Procedure: Bilateral L5-S1 transforaminal epidural steroid injection Medications: Bupivacaine 0.25% 2cc, lidocaine 2% 1cc, kenalog 80mg The patient was seen and examined in the preoperative holding area.? Informed consent was obtained and placed on the chart.? Patient was brought to the medical procedure unit and placed in the prone position where a timeout was completed verifying the correct patient, procedure site, position, and planned special equipment using sterile aseptic technique.? Under direct fluoroscopic visualization a 25-gauge Quincke tipped spinal needle was advanced at level left L5-S1 to the designated neural foramen where contrast dye was injected to show adequate spread.? There was no evidence of vascular or adverse uptake.? Epidural spread was appreciated.? The above-mentioned injectate was then placed in a 1.5 mL aliquot preceded by negative aspiration.? The needle was removed. The same procedure, at the same level, was completed on the opposite side. ? Patient was taken to the postprocedural recovery area and monitored for an appropriate length of time before found suitable for discharge in the accompaniment of a responsible adult. Anesthesia: Local Surgeon: Adelfo Hansen Pathology: none sent Condition: stable Disposition: no change
== END 2024-07-17 10:55 | disposition home or self-care (01) ==
LOC: SURGOUT 09:29
PROVIDERS: PCP Family Medicine; Visit Provider Anesthesiology
DX: M48.062 Spinal stenosis, lumbar region with neurogenic claudication (principal)
CPT/HCPCS: 64483; J0665; J3301; Q9966

== ENCOUNTER 2024-08-02 11:05 | Outpatient (OUT) | payer MEDICARE, SELFPAY ==
--- NOTE | 2024-08-02 11:36 | PM.CN ---
Consult Note: HPI Data of Consult Patient: known to practice within the last 3 years Consult date: 05/01/24 Requesting Physician: Nisa Galarza NP Primary Care Provider: TRUE DAVIS Consult Narrative Reason for consult: low back and hip pain Narrative: Angela Ruth a pleasant 79 year old female presents for evaluation and management of chronic low back and right hip pain. hx of lumbar surgery unknown levels laminectomy and fusion L3-5. Patient reporting moderate to severe low back pain with radiation into right leg. Pain today 6/10 increasing to 9/10 with standing walking and by end of day. Patient reports hx of lumbar RFAs that helped for a few months. Patient finds mild benefit from current medication regimen without side effects. recent bilateral L5-S1 TFESI providing 60% improvement ongoing, continues to have moderate to severe right SIJ pain and would like to discuss injections. Patient was also notified by neurology she has occipital neuritis and they recommend an injection, we do not have their notes at this time cc:: CC: Nisa Galarza NP Review of Systems ROS Status of ROS 10 or more systems reviewed and unremarkable except as noted in history and below Musculoskeletal Reports: back pain, neck pain and joint pain Neurological Reports: headache PFSH PFSH Medical History TMJ (dislocation of temporomandibular joint) ?S03.00XA - Dislocation of jaw, unspecified side, initial encounter (ICD-10) Neck pain ?M54.2 - Cervicalgia (ICD-10) Back pain ?M54.9 - Dorsalgia, unspecified (ICD-10) Osteoarthritis ?M19.90 - Unspecified osteoarthritis, unspecified site (ICD-10) H/O psychiatric care ?Z92.89 - Personal history of other medical treatment (ICD-10) Heartburn ?R12 - Heartburn (ICD-10) Acid reflux ?K21.9 - Gastro-esophageal reflux disease without esophagitis (ICD-10) Hypothyroid ?E03.9 - Hypothyroidism, unspecified (ICD-10) Kidney stones ?N20.0 - Calculus of kidney (ICD-10) Asthma ?J45.909 - Unspecified asthma, uncomplicated (ICD-10) High cholesterol ?E78.00 - Pure hypercholesterolemia, unspecified (ICD-10) Hypertension ?I10 - Essential (primary) hypertension (ICD-10) Surgical History H/O shoulder surgery ?Z98.890 - Other specified postprocedural states (ICD-10) H/O excision of hemangioma ?Z98.890 - Other specified postprocedural states (ICD-10) ?Z86.018 - Personal history of other benign neoplasm (ICD-10) H/O basal cell carcinoma excision ?Z98.890 - Other specified postprocedural states (ICD-10) ?Z85.828 - Personal history of other malignant neoplasm of skin (ICD-10) H/O lumbosacral spine surgery ?Z98.890 - Other specified postprocedural states (ICD-10) H/O foot surgery ?Z98.890 - Other specified postprocedural states (ICD-10) H/O hand surgery ?Z98.890 - Other specified postprocedural states (ICD-10) H/O wrist surgery ?Z98.890 - Other specified postprocedural states (ICD-10) History of cholecystectomy ?Z90.49 - Acquired absence of other specified parts of digestive tract (ICD-10) H/O breast biopsy ?Z98.890 - Other specified postprocedural states (ICD-10) History of appendectomy ?Z90.49 - Acquired absence of other specified parts of digestive tract (ICD-10) History of tonsillectomy and adenoidectomy ?Z90.89 - Acquired absence of other organs (ICD-10) Meds Home Medications and Allergies Home Medications ?Medication ?Instructions ?Recorded ?Confirmed ?Type acetaminophen 650 mg 1,300 mg PO Q8H PRN pain 07/07/23 07/17/24 History tablet,extended release (Arthritis Pain Relief (acetaminophen) ER) albuterol 90 mcg/actuation aerosol 90 mcg inhalation .every 4 hours 07/07/23 07/17/24 History inhaler PRN shortness of breath or wheezing alendronate 35 mg tablet 70 mg PO QWEEK 07/07/23 07/17/24 History amitriptyline 50 mg tablet 50 mg PO DAILY 07/07/23 07/17/24 History ascorbic acid (vitamin C) 500 mg 500 mg PO BID 07/07/23 07/17/24 History tablet,extended release (C Complex) aspirin 81 mg tablet,delayed 81 mg PO DAILY 07/07/23 07/17/24 History release (Adult Aspirin Regimen) atorvastatin 40 mg tablet 40 mg PO DAILY 07/07/23 07/17/24 History calcium carbonate (Calcium 600) 600 mg PO DAILY 07/07/23 07/17/24 History carvedilol 25 mg tablet 25 mg PO BID 07/07/23 07/17/24 History cholecalciferol (vitamin D3) 50 200 mcg PO DAILY 07/07/23 07/17/24 History mcg (2,000 unit) tablet (Vitamin D3) escitalopram oxalate 20 mg tablet 20 mg PO DAILY 07/07/23 07/17/24 History famotidine 20 mg tablet 20 mg PO DAILY 07/07/23 07/17/24 History fenofibrate 160 mg tablet 160 mg PO DAILY 07/07/23 07/17/24 History fexofenadine 180 mg tablet 180 mg PO DAILY 07/07/23 07/17/24 History hydralazine 100 mg tablet 100 mg PO TID 07/07/23 07/17/24 History levothyroxine 150 mcg capsule 150 mcg PO DAILY 07/07/23 07/17/24 History lisinopril 20 1 tab PO DAILY 07/07/23 07/17/24 History mg-hydrochlorothiazide 12.5 mg tablet magnesium 250 mg tablet 250 mg PO DAILY 07/07/23 07/17/24 History uansvzax-qbj-iyyhj acid 0.4 1 tab PO DAILY 07/07/23 07/17/24 History mg-lycopene 300 mcg-lutein 250 mcg tablet (Centrum Silver) omeprazole 40 mg capsule,delayed 40 mg PO DAILY 07/07/23 07/17/24 History release oxybutynin chloride 10 mg 10 mg PO DAILY 07/07/23 07/17/24 History tablet,extended release 24 hr methocarbamol 500 mg tablet 500 mg PO BID 04/19/24 07/17/24 History buprenorphine 7.5 mcg/hour weekly 1 patch transdermal Q7D #4 ea 05/01/24 07/17/24 Rx transdermal patch (Butrans) Allergies Allergy/AdvReac Type Severity Reaction Status Date / Time adhesive tape Allergy unknown Verified 07/17/24 10:20 Influenza Virus Vaccines Allergy unknown Verified 07/17/24 10:20 lincomycin [From Lincocin] Allergy Unknown Verified 07/17/24 10:20 Penicillins Allergy Unknown Verified 07/17/24 10:20 Exam Constitutional Documenting provider has reviewed patient's vital signs: yes Common normals: no apparent distress, oriented x3, healthy appearing, alert and well nourished General appearance: cooperative [facility] Common normals: normocephalic, hearing grossly normal bilaterally and moist oral mucous membranes Head and scalp: normocephalic Eye Common normals: PERRL Pupil: PERRL Neck & C-Spine Common normals: full ROM General: normal visual inspection Cervical spine: pain with cervical ROM Other: negative facet loading, negative spurlings, strength 5/5 in BUE tenderness over right occipital nerve, increased pain with palpation Neck images: 1. Chest Common normals: inspection of chest normal Respiratory Common normals: normal respiratory effort, no retractions and no use of accessory muscles Back & Pelvis Lumbar spine/lower back: ROM limited, pain with ROM and straight leg raise negative bilaterally Sacroiliac joints: SI joint(s) abnormal Other: right SIJ positive eri(patricks), gaenslens, thigh thrust, compression test decreased sensation bilateral L5/S1 strength 4/5 in BLE Extremity Right lower extremity: hip joint Other: pain with internal and external log roll Neuro Common normals: oriented x3, CN's II-XII intact bilaterally, moves all extremities, no focal motor deficits, no sensory deficits noted and deep tendon reflexes 2+ bilaterally Sensorium/orientation: alert Motor exam: strength 5/5 throughout and no movement abnormalities noted Psych Common normals: mental status grossly normal, thought process normal, cooperative, affect normal, speech normal and activity/motor behavior normal Speech: normal speech Thought process: normal thought process Results Additional Findings Additional findings: If on a controlled substance or opioids, I have checked an [place] report on this patient and there are no aberrancies noted in the prescribing history.??If on a controlled substance or opioid a drug screen was completed and reviewed within the last year, and if there has not been a drug screen completed we ordered one today to monitor higher risk, state monitored pain medication use. As part of providing excellent, safe, comprehensive care, the following was completed at our patient's visit: 1. A medication reconciliation and review to ensure accurate knowledge of current/active medications, including asking our patients to inform us about any kuoq-xje-tgygxgm medications or herbal remedies/nutritional supplements/alternative remedies. 2. A review to specifically ensure our patients have had annual screening for screening for depression, screening for tobacco use, and screening for unhealthy alcohol use. For concerning screenings had a discussion with the patient, provided patient education, and recommended follow-up with primary care provider when appropriate. If patient noted with a risk of falling, they received education on strength, gait, and balance training to prevent future risk of falling. Assessment and Plan Assessment and Plan (1) Lumbar stenosis with neurogenic claudication: (2) Sacroiliitis: (3) Myofascial pain: (4) Occipital neuralgia: (5) Degenerative cervical disc: (6) Cervical spondylosis: (7) Chronic prescription opiate use: Assessment and Plan: I feel these medications are improving the patient's quality of life and allow them to tolerate activities of daily living as well as participate in recreational activity.? The patient does not report intolerable side effects. The patient is NOT opioid naive and non-pharmacologic and non-opioid treatment has failed to significantly relieve the patient's pain and improve functionality. The patient has a diagnosis that is related to a somatic or visceral pain etiology. ? ?? I reviewed with the patient the potential risks and side effects with the use of? opioid medications including but not limited to respiratory depression,? sedation, and even . I verified the patient has access to naloxone should? these effects occur. I advised the patient to avoid the use of any other? sedation substances including alcohol, THC, and benzodiazepines while? taking opioid medications due to the risk of compounding side effects and? detrimental outcomes. I reviewed the SALES AND MARKETING COORDINATOR, pain treatment agreement, urine? drug screen, and opioid start talking forms. The patient was advised to let? their family know they had Naloxone in case they would need to administer? the medication.? ?? A drug screen was completed within the last year, and no aberrancies were noted regarding their use of controlled substances. The patient understands they are subject to the terms and conditions of the pain contract that they have signed. ? ?? I have checked an [place]AR[place] report on this patient today and there are no aberrancies noted in the prescribing history.? (8) Muscle spasm: (9) Osteoarthritis of right hip: (10) Lumbar postlaminectomy syndrome: Plan right SIJ injection under fluoroscopy for sacroilitis Neurology notes reviewed, proceed with right greater occipital nerve injection with Dr Hansen for occipital neuralgia of right side continue current medications, finding benefit without side effects f/u after injections complete
== END 2024-08-02 11:06 | disposition home or self-care (01) ==
PROVIDERS: PCP Family Medicine; Visit Provider Nurse Practitioner
DX: M48.062 Spinal stenosis, lumbar region with neurogenic claudication (principal); M46.1 Sacroiliitis, not elsewhere classified; M54.81 Occipital neuralgia; M50.30 Other cervical disc degeneration, unspecified cervical region; M47.812 Spondylosis without myelopathy or radiculopathy, cervical region; Z79.891 Long term (current) use of opiate analgesic; M62.838 Other muscle spasm; M16.11 Unilateral primary osteoarthritis, right hip; M96.1 Postlaminectomy syndrome, not elsewhere classified
CPT/HCPCS: G0463

== ENCOUNTER 2024-08-21 09:23 | Day surgery (SDC) | payer MEDICARE, SELFPAY ==
[2024-08-21 09:38] VITALS: BP 136/77; PULSE 77; TEMP 36.6; O2SAT 95
--- OUTSIDE RECORDS SUMMARY | 2024-08-21 09:39 | XMS_ITS | CCD ---
Author Organization [facility] [employer]iniSyak Care Team Providers Care Motel Maid Name Role Phone LENNY PEDRAZA Unavailable Unavailable AUDREY HORN Unavailable Unavailable AUDREY HORN Unavailable Unavailable LENNY PEDRAZA Unavailable Unavailable NASH, BIA F Primary Care Unavailable NASH, BIA F Primary Care Unavailable LALIT LEACH Attending Unavailable NASH, BIA F Referring Unavailable NASH, BIA F Primary Care Unavailable Nash GARCIA, Bia Anny Primary Care Provider Jacob Viveros Unavailable Unavailable Bia Cao MD Primary Care Provider [phone] (Hist), No Pcp Primary Care Provider UnavailIleana Paris MD Unavailable MANDI HOOVER Attending Unavailable Giedraitis , Andrius Maria Elena Attending Unavailable Giedraitis , Andrius Maria Elena Attending Unavailable Giedraitis , Andrius Maria Elena Attending Unavailable Giedraitis , Andrius Vickiytsb Attending Unavailable Giedraitis , Andrius Vickiytsb Attending [...] Unavailable NASH, BIA F Primary Care Unavailable SAMIRAARPANJOHN AGUIRRE Attending Unavailable NASH, BIA F Referring Unavailable NASH, BIA F Primary Care Unavailable WILLIAN, YOANNA Attending Unavailable NASH, BIA F Referring Unavailable NASH, BIA F Primary Care Unavailable WILLIAN, YOANNA Attending Unavailable NASH, BIA F Referring Unavailable NASH, BIA F Primary Care Unavailable NASH, BIA F Attending Unavailable NASH, BIA F Attending Unavailable RUSHERSANTO Attending Unavailable WILVER, ELMER Guillermo Attending Unavailable [...] Unavailable NASH, BIA F Referring Unavailable SNYDER, RAI Attending Unavailable NASH, BIA F Referring Unavailable SNYDER, IRA Attending Unavailable NASH, BIA F Referring Unavailable [...] / Clavulanate Drug Allergy 08-14-20 11 Rash [facility] Aspartame (1 source) Aspartame Drug Allergy 02-13-20 17 Other: See Comments [facility] Clavulanate (1 source) Clavulanate Drug Allergy 02-13-20 17 Rash [facility] egg white (chicken) allergenic extract (1 source) egg white (chicken) allergenic extract Drug Allergy 08-14-20 11 Swelling [facility] Lincomycin (1 source) Lincomycin Drug Allergy 11-04-20 16 Rash [facility] NSAIDs (1 source) oxaprozin Drug Allergy 11-04-[address] [facility] Penicillins (antibiotic) (1 source) Penicillins Drug Allergy 11-04-[address] [facility] (12 sources) Adhesive agent; Translations: [ADHESIVE] [...] Influenza Vaccines Drug Allergy 06-04-20 23 Rash [facility] (6 sources) Lincomycin Drug Allergy 12-01-19 22 Unknown [facility] (6 sources) Sulfonamides (Antibiotic) Drug Intolerance 11-11-20 22 Hives [facility] (6 sources) Eggs Or Egg-Derived Products Drug Allergy 08-14-20 11 Swelling, Unknown [facility] (6 sources) Poultry Meal Propensity to adverse reactions 03-02-20 23 [facility] (6 sources) Wound Dressing Adhesive Drug Allergy 06-04-20 23 Rash [facility] (3 sources) egg white (chicken) allergenic extract; Translations: [EGG WHITE] Drug Allergy 08-14-20 11 Swelling [facility] Medications Current Medications Medication Drug Class(es) Dates Sig (Normalized) Sig (Original) acetaminophen 500 mg oral tablet (8 sources) take 500-1000 mg by mouth every eight hours as needed acetaminophen (TYLENOL) 500 mg tablet Take 500-1,000 mg by mouth three times daily as needed. 0 Active take 2 tablets by [facility] every six hours as needed for pain [...] every six hours as needed for headache fpixuzr-aodyfxvwcrlsx-vmsmnwlk (EXCEDRIN MIGRAINE) 250-250-65 mg per tablet Take 1 tablet by mouth every 6 (six) hours as needed for headaches. 0 Active acetaminophen 325 mg / butalbital 50 mg / caffeine 40 mg oral tablet (11 sources) Barbiturate, Central Nervous System Stimulant, Methylxanthine St ar t: 06 -0 2- 20 23 take 1 tablet by mouth every four hours as needed for headache nagulkhixe-fdaygfuazmpvo-fnop (ESGIC) 50-325-40 mg per tablet Take 1 [...] four times daily as needed. 0 Active [id number] actuat albuterol 0.09 mg/actuat metered dose inhaler (14 sources) beta2-Adrenergic Agonist ar t: 07 - 4- 20 23 take 2 puff(s) by inhalation every [...] capsule 3 11/29/2023 Active Start: 12-02-2016 omeprazole (NM ILOSEC) 20 mg capsule 20 mg once [...] by mouth. 0 04/23/2023 01/07/2024 Discontinued pediatric iflbsfjf-auon-sj n (flintstones complete) tablet,chewable (3 sources) Start: 01-18-2024 End: 02-24-2024 pediatric sbaxvuew-oyjc-xsh (flintstones complete) tablet,chewable Chew 1 tablet and swallow in the morning. 90 tablet 3 01/18/2024 02/24/2024 Discontinued (Duplicate Listing) Start: 01-18-2024 pediatric mult drib-zfnb-sjy (flintstones complete) tablet,chewable Chew 1 tablet and [...] 07-10-2024 Calcium [Mass/Vol] 9.5 mg/dL Normal 8.5-10.5 [facility] Comment on above: Performed By: #### 1 3965-9, CBCA, FEPR, THYR, 2276-4, 2132-9, 2284-8, IMEL, SPE #### [facility] ([id number]) [address], [address] [place] [address] #### MTHFRS #### [facility] ([id number]) [address] [place] [address] THYROID PROFILEon 07-10-2024 Free T4 [Mass/Vol] 1.24 ng/dL Normal 0.61-1.60 [facility] Comment on above: Performed By: #### 1 3965-9, CBCA, FEPR, THYR, 2276-4, 2131-9, 2284-8, IMEL, SPE #### [facility] ([id number]) [address], [address] [place] [address] #### MTHFRS #### [facility] ([id number]) [address] [place] [address] TSH 1.37 uIU/mL Normal 0.49-4.67 [facility] Comment on above: Performed By: #### 1 3965-9, CBCA, FEPR, THYR, 2276-4, 2-9, 2284-8, IMEL, SPE #### [facility] ([id number]) [address], [address] [place] [address] #### MTHFRS #### [facility] ([id number]) [address] [place] [address] Vitamin D+Metabolites [Mass/ Vol]on 07-10-2024 VITAMIN D 25 HYD TOT 78.8 ng/mL Normal 30-100 [facility] Comment on above: Result Comment: Vitamin D status 25 [place] Vitamin D Deficiency <20 ng/mL Insufficiency 20-29 ng/mL Sufficiency 30-100 ng/mL Toxicity >100 ng/mL NOTE: A pediatric reference range has not been established by the arranging funeral director of this kit. The [place] [employer] recommends a Vitamin D level of = or >20ng/mL in infants and children. Performed By: #### 1 3965-9, CBCA, FEPR, THYR, 2276-4, 2132-9, 2284-8, IMAMANDA, JOSHUA #### [facility] ([id number]) [address], [address] [place] [address] #### MTHFRS #### [facility] ([id number]) [address] [place] [address], [place] [address] XR THORACIC SPINE 3 VIEWSon 07-10-2024 XR [...] report is generated using voice recognition reporting (Payoff). On occasion [employer] erroneously drops words from the report or replaces the spoken word with similar sounding words. Please call with any questions/concerns regarding this report.* Dictated and transcribed 07/11/2024/tm This report has been electronically signed and approved by the interpreting radiologist. Electronically Signed Shubham Almodovar II, M.D. 2024-07-11 10:01:04 Normal Not Available CNOVon 04-04-2024 CNOV Office Visit (NSCAMN ) -- ANGELA RUTH ([id number]) 1945 F Date Time Provider Department 04/04/24 [...] [facility] [place], [facility] CC: Patient Care Team: Bia Cao as PCP ([facility]) Ileana Cortes MD as NI Referring [...] 6 months with a repeat MRI scan ([place] preference) and clinic visit with one of our skull base team advance practice providers ([place] preference). - follow up with sap basis consultant for hearing loss which is unrelated to [...] Patient is accompanied by her granddaughter (her service car driver) and great grand daughter). 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 The patient takes ASA 81 mg daily for cardioprotection per her PCP. The patient has been using a cane for the last 5-6 years. The patient reports that ~6 weeks ago, she walked into her garage door and fell. The patient has not seen an sap basis consultant or a vestibular therapist. Past Medical History: [...] Units once (more content not included)... Normal [place] 03-24-2024 [facility] Telephone (NIQ) -- ANGELA RUTH ([id number]) 1945 F Date Time Provider Department 03/24/24 [facility] During your visit today, we recorded the following information about you: Shelli Fletcher 03/24/2024 5:01 PM Signed Referral source: Ileana Cortes MD ([facility]) Reason for visit: consideration of gamma knife for 1.2 cm enhancing lesion at right cerebelloponitine angle with leading differential including vestibular schwannoma and meningioma External records: Sent with referral and pulled from [facility] Triage: Required, forwarded to [facility] by telephone encounter sent to [facility] Scheduling Triage. Financial clearance: Not required to schedule Vanesa Morgan APRN.[facility] 03/28/2024 10:00 AM Signed Time Frame: First available Provider: Kiko Landrum Soni Referring: Ileana Cortes MD Images to be requested from [facility] Dx: Right CPA mass Patient: Angela Ruth Address: Angela Ruth [phone] [facility] [place] [address] Per Triage: HISTORY OF PRESENT ILLNESS Angela [...] extracranial soft tissues are unremarkable. Vanesa Morgan APRN.SENIOR PHYSICAL THERAPIST March 28, 2024 Etelvina Trujillo 03/28/2024 10:12 AM Signed Called patient to schedule an appointment. No ans/left message to call the office back. Appointment scheduled: 04/04/2024 10:30 AM (Arrive by 10:15 AM) Mandi Hoover MD [facility] RAMAN Alonso Janette 04/06/2024 10:40 AM Addendum Imaging requested from [facility]. DOS requested: MRI 03/02/2024 CT Scan 02/11 2024 AND 03/09/2023, 02/11/2024. 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 (REFER (more content not included)... Normal [facility] MR BRAIN W AND WO CONTRAST ( [...] schwannoma and meningioma. ELECTRONICALLY SIGNED BY: Ryan Sebly MD Normal Not Available BI MAMMOGRAM DIAGNOSTIC [...] IS VERY IMPORTANT TO YOUR HEALTH. THE [employer] GUIDELINES RECOMMEND THAT WOMEN 40 [...] 24 ABSOLUTE BASOPHIL 0.0 X10E9/L Normal 0.0-0.2 [facility] Comment on above: Performed By: #### 1 3965-9, CBCA, FEPR, THYR, 2276-4, 2-9, 2284-8, IMEL, SPE #### [facility] ([id number]) [address] [place] [address], [address] [place] [address] #### MTHFRS #### [facility] ([id number]) [address] [place] [address] ABSOLUTE NEUTROPHIL 3.0 X10E9/L Normal 1.5-6.6 [facility] Comment on above: Performed By: #### 1 3965-9, CBCA, FEPR, THYR, 2276-4, 2-9, 2284-8, IMEL, SPE #### [facility] ([id number]) [address] [place] [address], [address] [place] [address] #### MTHFRS #### [facility] ([id number]) [address] [place] [address] Basophils/100 WBC (Bld) 0.9 % Normal [facility] Comment on above: Performed By: #### 1 3965-9, CBCA, FEPR, THYR, 2276-4, 2-9, 2284-8, IMEL, SPE #### [facility] ([id number]) [address] [place] [address], [address] [place] [address] #### MTHFRS #### [facility] ([id number]) [address] [place] [address] Eosinophils (Bld) [#/Vol] 0.1 10*3/uL Normal 0.0-0.4 [facility] Comment on above: Performed By: #### 1 3965-9, CBCA, FEPR, THYR, 6-4, 9, 8, IMEL, SPE #### [facility] ([id number]) [address], [address] [place] [address] #### MTHFRS #### [facility] ([id number]) [address] [place] [address] Eosinophils/100 WBC (Bld) 1.8 % Normal [facility] Comment on above: Performed By: #### 1 3965-9, CBCA, FEPR, THYR, 2275-, 2132-07, 2284-06, IMEL, SPE #### [facility] ([id number]) [address], [address] [place] [address] #### MTHFRS #### [facility] ([id number]) [address] [place] [address] Erythrocyte distribution width (RBC) [Ratio] 15.1 % High 11.5-15.0 [facility] Comment on above: Performed By: #### 1 3965-9, CBCA, FEPR, THYR, 6-4, 2132-07, 2284-06, IMEL, SPE #### [facility] ([id number]) [address], [address] [place] [address] #### MTHFRS #### [facility] ([id number]) [address] [place] [address] Hematocrit (Bld) [Volume fraction] 39.6 % Normal 35-47 [facility] Comment on above: Performed By: #### 1 3965-9, CBCA, FEPR, THYR, 6-4, 2132-07, 2284-06, IMEL, SPE #### [facility] ([id number]) [address], [address] [place] [address] #### MTHFRS #### [facility] ([id number]) [address] [place] [address] Hemoglobin (Bld) [Mass/Vol] 13.5 g/dL Normal 11.7-15.5 [facility] Comment on above: Performed By: #### 1 3965-9, CBCA, FEPR, THYR, 2276-4, 2131-9, 4-8, IMEL, SPE #### [facility] ([id number]) [address], [address] [place] [address] #### MTHFRS #### [facility] ([id number]) [address] [place] [address] Lymphocytes (Bld) [#/Vol] 1.5 10*3/uL Normal 1.0-3.5 [facility] Comment on above: Performed By: #### 1 3965-9, CBCA, FEPR, THYR, 6-4, 2131-9, 4-8, IMEL, SPE #### [facility] ([id number]) [address], [address] [place] [address] #### MTHFRS #### [facility] ([id number]) [address] [place] [address] Lymphocytes/100 WBC (Bld) 28.5 % Normal [facility] Comment on above: Performed By: #### 1 3965-9, CBCA, FEPR, THYR, 6-4, 2131-9, 4-8, IMEL, SPE #### [facility] ([id number]) [address], [address] [place] [address] #### MTHFRS #### [facility] ([id number]) [address] [place] [address] MCH (RBC) [Entitic mass] 29.0 pg Normal 27-34 [facility] Comment on above: Performed By: #### 1 3965-9, CBCA, FEPR, THYR, 2275-, 2132-07, 2284-06, IMEL, SPE #### [facility] ([id number]) [address], [address] [place] [address] #### MTHFRS #### [facility] ([id number]) [address] [place] [address] MCHC (RBC) [Mass/Vol] 34.0 g/dL Normal 32-36 [facility] Comment on above: Performed By: #### 1 3965-9, CBCA, FEPR, THYR, 2276-02, 2132-07, 2284-06, IMEL, SPE #### [facility] ([id number]) [address], [address] [place] [address] #### MTHFRS #### [facility] ([id number]) [address] [place] [address] MCV (RBC) [Entitic vol] 85 fL Normal 80-100 [facility] Comment on above: Performed By: #### 1 3965-9, CBCA, FEPR, THYR, 2276-02, 2132-07, 2284-06, IMEL, SPE #### [facility] ([id number]) [address], [address] [place] [address] #### MTHFRS #### [facility] ([id number]) [address] [place] [address] Monocytes (Bld) [#/Vol] 0.5 10*3/uL Normal 0-0.9 [facility] Comment on above: Performed By: #### 1 3965-9, CBCA, FEPR, THYR, 2276-02, 2132-07, 2284-8, IMEL, SPE #### [facility] ([id number]) [address], [address] [place] [address] #### MTHFRS #### [facility] ([id number]) [address] [place] [address] Monocytes/100 WBC (Bld) 10.3 % Normal [facility] Comment on above: Performed By: #### 1 3965-9, CBCA, FEPR, THYR, 6-4, 9, 8, IMEL, SPE #### [facility] ([id number]) [address], [address] [place] [address] #### MTHFRS #### [facility] ([id number]) [address] [place] [address] Neutrophils/100 WBC (Bld) 58.5 % Normal [facility] Comment on above: Performed By: #### 1 3965-9, CBCA, FEPR, THYR, 6-4, 2132-07, 2284-06, IMEL, SPE #### [facility] ([id number]) [address], [address] [place] [address] #### MTHFRS #### [facility] ([id number]) [address] [place] [address] Platelet mean volume (Bld) [Entitic vol] 9.2 fL Normal 7-12 [facility] Comment on above: Performed By: #### 1 3965-9, CBCA, FEPR, THYR, 6-4, 9, 8, IMEL, SPE #### [facility] ([id number]) [address], [address] [place] [address] #### MTHFRS #### [facility] ([id number]) [address] [place] [address] Platelets (Bld) [#/Vol] 176 10*3/uL Normal 150-450 [facility] Comment on above: Performed By: #### 1 3965-9, CBCA, FEPR, THYR, 2276-4, 2-9, 2284-8, IMEL, SPE #### [facility] ([id number]) [address], [address] [place] [address] #### MTHFRS #### [facility] ([id number]) [address] [place] [address] RBC COUNT 4.65 X10E12/L Normal 3.80-5.20 [facility] Comment on above: Performed By: #### 1 3965-9, CBCA, FEPR, THYR, 2276-4, 2-9, 2284-8, IMEL, SPE #### [facility] ([id number]) [address], [address] [place] [address] #### MTHFRS #### [facility] ([id number]) [address] [place] [address] WBC (Bld) [#/Vol] 5.2 10*3/uL Normal 4.0-11.0 [facility] Comment on above: Performed By: #### 1 3965-9, CBCA, FEPR, THYR, 6-4, 2131-9, 4-8, IMEL, SPE #### [facility] ([id number]) [address], [address] [place] [address] #### MTHFRS #### [facility] ([id number]) [address] [place] [address] COMPREHENSIVE METABOLIC PANE Gadiel 02-11-2024 Albumin [Mass/Vol] 4.1 g/dL Normal 3.2-5.3 [facility] Comment on above: Performed By: #### 1 3965-9, CBCA, FEPR, THYR, 2276-4, 2-9, 2284-8, IMEL, SPE #### [facility] ([id number]) [address], [address] [place] [address] #### MTHFRS #### [facility] ([id number]) [address] [place] [address] ALP [Catalytic activity/Vol] 42 U/L Normal 39-130 [facility] Comment on above: Performed By: #### 1 3965-9, CBCA, FEPR, THYR, 2276-4, 2131-9, 2284-8, IMEL, SPE #### [facility] ([id number]) [address], [address] [place] [address] #### MTHFRS #### [facility] ([id number]) [address] [place] [address]45 ALT [Catalytic activity/Vol] 18 U/L Normal 0-31 [facility] Comment on above: Performed By: #### 1 3965-9, CBCA, FEPR, THYR, 2276-4, 2131-9, 2283-8, IMEL, SPE #### [facility] ([id number]) [address], [address] [place] [address] #### MTHFRS #### [facility] ([id number]) [address] [place] [address] Anion gap [Moles/Vol] 7 mmol/L Normal 5-15 [facility] Comment on above: Performed By: #### 1 3965-9, CBCA, FEPR, THYR, 2276-4, 2131-9, 2284-8, IMEL, SPE #### [facility] ([id number]) [address], [address] [place] [address] #### MTHFRS #### [facility] ([id number]) [address] [place] [address]8421 AST [Catalytic activity/Vol] 27 U/L Normal 0-41 [facility] Comment on above: Performed By: #### 1 3965-9, CBCA, FEPR, THYR, 2276-4, 2131-9, 4-8, IMEL, SPE #### [facility] ([id number]) [address], [address] [place] [address] #### MTHFRS #### [facility] ([id number]) [address] [place] [address]6667 Bilirubin [Mass/Vol] 0.5 mg/dL Normal 0.3-1.2 [facility] Comment on above: Performed By: #### 1 3965-9, CBCA, FEPR, THYR, 6-4, 9, 8, IMEL, SPE #### [facility] ([id number]) [address] [facility] [facility], [address] [place] [address] #### MTHFRS #### [facility] ([id number]) [address] [place] [address]87 Calcium [Mass/Vol] 9.4 mg/dL Normal 8.5-10.5 [facility] Comment on above: Performed By: #### 1 3965-9, CBCA, FEPR, THYR, 6-4, 9, 2283-8, IMEL, SPE #### [facility] ([id number]) [address], [address] [place] [address] #### MTHFRS #### [facility] ([id number]) [address] [place] [address]79 Chloride [Moles/Vol] 104 mmol/L Normal 98-109 [facility] Comment on above: Performed By: #### 1 3965-9, CBCA, FEPR, THYR, 6-4, 9, 8, IMEL, SPE #### [facility] ([id number]) [address], [address] [place] [address] #### MTHFRS #### [facility] ([id number]) [address] [place] [address] CO2 [Moles/Vol] 25 mmol/L Normal 22-32 [facility] Comment on above: Performed By: #### 1 3965-9, CBCA, FEPR, THYR, 2275-4, 2132-07, 8, IMEL, SPE #### [facility] ([id number]) [address], [address] [place] [address] #### MTHFRS #### [facility] ([id number]) [address] [place] [address]25 Creatinine [Mass/Vol] 1.01 mg/dL High 0.40-1.00 [facility] Comment on above: Result Comment: METH OD TRACEABLE TO IDMS STANDARD Performed By: #### 1 3965-9, CBCA, FEPR, THYR, 2276-02, 2132-07, 2284-06, IMEL, SPE #### [facility] ([id number]) [address], [address] [place] [address] #### MTHFRS #### [facility] ([id number]) [address] [place] [address]708 GFR/1.73 sq M.predicted among non-blacks MDRD (S/P/Bld) [Vol rate/Area] 57 mL/min/{1.73_m2} Low >59 [facility] Comment on above: Result Comment: Reported eGFR is based on the CKD-EPI 2020 equation that does not use a race coefficient. Performed By: #### 1 3965-9, CBCA, FEPR, THYR, 2275-, 2132-07, 2284-8, IMEL, SPE #### [facility] ([id number]) [address], [address] [place] [address] #### MTHFRS #### [facility] ([id number]) [address] [place] [address] Glucose [Mass/Vol] 114 mg/dL High 65-99 [facility] Comment on above: Performed By: #### 1 3965-9, CBCA, FEPR, THYR, 6-4, 9, 2283-8, IMEL, SPE #### [facility] ([id number]) [address], [address] [place] [address] #### MTHFRS #### [facility] ([id number]) [address] [place] [address] Potassium [Moles/Vol] 4.2 mmol/L Normal 3.5-5.0 [facility] Comment on above: Performed By: #### 1 3965-9, CBCA, FEPR, THYR, 6-4, 9, 2284-06, IMEL, SPE #### [facility] ([id number]) [address], [address] [place] [address] #### MTHFRS #### [facility] ([id number]) [address] [place] [address] Protein [Mass/Vol] 7.2 g/dL Normal 6.0-8.0 [facility] Comment on above: Performed By: #### 1 3965-9, CBCA, FEPR, THYR, 6-4, 9, 8, IMEL, SPE #### [facility] ([id number]) [address], [address] [place] [address] #### MTHFRS #### [facility] ([id number]) [address] [place] [address] Sodium [Moles/Vol] 136 mmol/L Normal 134-146 [facility] Comment on above: Performed By: #### 1 3965-9, CBCA, FEPR, THYR, 2276-4, 2132-9, 2284-8, IMEL, SPE #### [facility] ([id number]) [address], [address] [place], [place] [address] #### MTHFRS #### [facility] ([id number]) [address] [place] [address] Urea nitrogen [Mass/Vol] 22 mg/dL Normal 5-27 [facility] Comment on above: Performed By: #### 1 3965-9, CBCA, FEPR, THYR, 2276-4, 2132-9, 2284-8, IMEL, SPE #### [facility] ([id number]) [address], [address] [place] [address] #### MTHFRS #### [facility] ([id number]) [address] [place] [address] CT ABDOMEN AND PELVIS W CONT on [...] Mooney MD on 02/11/2024 2:04 PM Normal [facility] CT BRAIN WO CONTon CT BRAIN [...] Dharmesh Mittal on 02/11/2024 1:52 PM Normal [facility] CT CERVICAL SPINE WO CONTon 02-11-2024 [...] Davis DO on 02/11/2024 1:52 PM Normal [facility] CT CHEST W CONTon 02-11-2024 CT [...] with mammographic workup and evaluation is recommended. MacMahon H, et al. Guidelines for Management of Incidental Pulmonary Nodules Detected on CT Images: From the Fleischner Society 2017. Radiology. 2017 Jeremi;284(1):228-243. Approved by Resident Mara Thomas DO on 02/11/2024 2:01 PM I, Ileana Ann MD have personally reviewed the image(s) and agree with and/or edited the report Finalized by Ileana Ann MD on 02/11/2024 2:19 PM Normal [facility] LIPASEon 02-11-2024 Lipase [Catalytic activity/Vol] 38 U/L Normal 17-40 [facility] Comment on above: Performed By: #### 1 3965-9, CBCA, FEPR, THYR, 2276-4, 9, 2283-8, IMEL, SPE #### [facility] ([id number]) [address] [place] [address], [address] [place] [address] #### MTHFRS #### [facility] ([id number]) [address] [place] [address] CBC AND AUTO DIFFon 01-11-20 24 ABSOLUTE BASOPHIL 0.1 X10E9/L Normal 0.0-0.2 [facility] Comment on above: Performed By: #### 1 3965-9, CBCA, FEPR, THYR, 2276-4, 9, 2283-8, IMEL, SPE #### [facility] ([id number]) [address] [place] [address], [address] [place] [address] #### MTHFRS #### [facility] ([id number]) [address] [place] [address] ABSOLUTE NEUTROPHIL 2.4 X10E9/L Normal 1.5-6.6 [facility] Comment on above: Performed By: #### 1 3965-9, CBCA, FEPR, THYR, 2276-4, 9, 2288, IMEL, SPE #### [facility] ([id number]) [address], [address] [place] [address] #### MTHFRS #### [facility] ([id number]) [address] [place] [address] Basophils/100 WBC (Bld) 1.4 % Normal [facility] Comment on above: Performed By: #### 1 3965-9, CBCA, FEPR, THYR, 6-4, 2132-07, 2283-8, IMEL, SPE #### [facility] ([id number]) [address], [address] [place] [address] #### MTHFRS #### [facility] ([id number]) [address] [place] [address] Eosinophils (Bld) [#/Vol] 0.1 10*3/uL Normal 0.0-0.4 [facility] Comment on above: Performed By: #### 1 3965-9, CBCA, FEPR, THYR, 6-4, 2132-07, 2284-06, IMEL, SPE #### [facility] ([id number]) [address], [address] [place] [address] #### MTHFRS #### [facility] ([id number]) [address] [place] [address] Eosinophils/100 WBC (Bld) 2.8 % Normal [facility] Comment on above: Performed By: #### 1 3965-9, CBCA, FEPR, THYR, 2275-4, 2132-07, 2284-06, IMEL, SPE #### [facility] ([id number]) [address], [address] [place] [address] #### MTHFRS #### [facility] ([id number]) [address] [place] [address] Erythrocyte distribution width (RBC) [Ratio] 15.5 % High 11.5-15.0 [facility] Comment on above: Performed By: #### 1 3965-9, CBCA, FEPR, THYR, 2276-02, 2132-07, 8, IMEL, SPE #### [facility] ([id number]) [address], [address] [place] [address] #### MTHFRS #### [facility] ([id number]) [address] [place] [address]12 Hematocrit (Bld) [Volume fraction] 38.4 % Normal 35-47 [facility] Comment on above: Performed By: #### 1 3965-9, CBCA, FEPR, THYR, 2276-02, 2132-07, 2284-06, IMEL, SPE #### [facility] ([id number]) [address], [address] [place] [address] #### MTHFRS #### [facility] ([id number]) [address] [place] [address] Hemoglobin (Bld) [Mass/Vol] 12.5 g/dL Normal 11.7-15.5 [facility] Comment on above: Performed By: #### 1 3965-9, CBCA, FEPR, THYR, 2276-02, 2132-07, 2284-06, IMEL, SPE #### [facility] ([id number]) [address], [address] [place] [address] #### MTHFRS #### [facility] ([id number]) [address] [place] [address] Lymphocytes (Bld) [#/Vol] 1.7 10*3/uL Normal 1.0-3.5 [facility] Comment on above: Performed By: #### 1 3965-9, CBCA, FEPR, THYR, 2276-4, 9, 4-8, IMEL, SPE #### [facility] ([id number]) [address], [address] [place] [address] #### MTHFRS #### [facility] ([id number]) [address] [place] [address] Lymphocytes/100 WBC (Bld) 35.8 % Normal [facility] Comment on above: Performed By: #### 1 3965-9, CBCA, FEPR, THYR, 6-4, 2131-9, 4-8, IMEL, SPE #### [facility] ([id number]) [address], [address] [place] [address] #### MTHFRS #### [facility] ([id number]) [address] [place] [address] 11852 MCH (RBC) [Entitic mass] 28.5 pg Normal 27-34 [facility] Comment on above: Performed By: #### 1 3965-9, CBCA, FEPR, THYR, 6-4, 2131-9, 4-8, IMEL, SPE #### [facility] ([id number]) [address], [address] [place] [address] #### MTHFRS #### [facility] ([id number]) [address] [place] [address]1846 MCHC (RBC) [Mass/Vol] 32.7 g/dL Normal 32-36 [facility] Comment on above: Performed By: #### 1 3965-9, CBCA, FEPR, THYR, 6-4, 2131-9, 4-8, IMEL, SPE #### [facility] ([id number]) [address], [address] [place] [address] #### MTHFRS #### [facility] ([id number]) [address] [place] [address]1009 MCV (RBC) [Entitic vol] 87 fL Normal 80-100 [facility] Comment on above: Performed By: #### 1 3965-9, CBCA, FEPR, THYR, 2276-4, 2131-9, 4-8, IMEL, SPE #### [facility] ([id number]) [address], [address] [place] [address] #### MTHFRS #### [facility] ([id number]) [address] [place] [address]98[address] Monocytes (Bld) [#/Vol] 0.5 10*3/uL Normal 0-0.9 [facility] Comment on above: Performed By: #### 1 3965-9, CBCA, FEPR, THYR, 6-4, 2132-07, 8, IMEL, SPE #### [facility] ([id number]) [address] [facility], [address] [place] [address] #### MTHFRS #### [facility] ([id number]) [address] [place] [address]36 Monocytes/100 WBC (Bld) 10.0 % Normal [facility] Comment on above: Performed By: #### 1 3965-9, CBCA, FEPR, THYR, 6-4, 2132-07, 8, IMEL, SPE #### [facility] ([id number]) [address], [address] [place] [address] #### MTHFRS #### [facility] ([id number]) [address] [place] [address] 99472 Neutrophils/100 WBC (Bld) 50.0 % Normal [facility] Comment on above: Performed By: #### 1 3965-9, CBCA, FEPR, THYR, 6-4, 2132-07, 2283-8, IMEL, SPE #### [facility] ([id number]) [address], [address] [place] [address] #### MTHFRS #### [facility] ([id number]) [address] [place] [address] 91554 Platelet mean volume (Bld) [Entitic vol] 9.6 fL Normal 7-12 [facility] Comment on above: Performed By: #### 1 3965-9, CBCA, FEPR, THYR, 6-4, 9, 2283-8, IMEL, SPE #### [facility] ([id number]) [address], [address] [place] [address] #### MTHFRS #### [facility] ([id number]) [address] [place] [address]3243 Platelets (Bld) [#/Vol] 194 10*3/uL Normal 150-450 [facility] Comment on above: Performed By: #### 1 3965-9, CBCA, FEPR, THYR, 6-4, 2132-07, 2284-06, IMEL, SPE #### [facility] ([id number]) [address], [address] [place] [address] #### MTHFRS #### [facility] ([id number]) [address] [place] [address] 22108 RBC COUNT 4.41 X10E12/L Normal 3.80-5.20 [facility] Comment on above: Performed By: #### 1 3965-9, CBCA, FEPR, THYR, 6-4, 2132-07, 8, IMEL, SPE #### [facility] ([id number]) [address], [address] [place] [address] #### MTHFRS #### [facility] ([id number]) [address] [place] [address] 43061 WBC (Bld) [#/Vol] 4.9 10*3/uL Normal 4.0-11.0 [facility] Comment on above: Performed By: #### 1 3965-9, CBCA, FEPR, THYR, 2276-4, 2132-9, 2284-8, IMEL, SPE #### [facility] ([id number]) [address] [place] [address], [address] [place] [address] #### MTHFRS #### [facility] ([id number]) [address] [place] [address]3550 Clinical Pathologyon 024 Clinical Pathology Normal [facility] Comment on above: Result Comment: [facility] [address] [place] [address] Clinical Pathology Report Patient Name:ANGELA RUTH:1945 (Age: 78)Gender:FTaken:4Reported:01/14/2024hysician(s):MARCE Rayo ([phone])Copy To: Rec. #:[id number]: #[id number] Final Pathologic Diagnosis No monoclonal protein identified. Report Electronically Signed Out sb/01/12/2024duncan Alamo MD Interpretation performed at [facility], [address] [place] [address], License number: [id number]. Clinical History G25.0, R26.89, G62.9, R79.0. SERUM IEP SAMPLE NUMBER: [id number] IMMUNOGLOBULIN LEVELS (mg/dL): IgG : 652 IgA : 225 IgM : 64 Free Pyote: 3.45 Free Lambda: 2.10 Free Pyote/Lambda ratio: 1.64 Specimen(s) Received Serum IEP Fee Codes(s): 1; 60853-26 FERRITINon 01-11-2024 Ferritin [Mass/Vol] 47 ng/mL Normal 11-307 [facility] Comment on above: Performed By: #### 1 3965-9, CBCA, FEPR, THYR, 2276-4, 2132-9, 2284-8, IMEL, SPE #### [facility] ([id number]) [address], [address] [place] [address] #### MTHFRS #### [facility] ([id number]) [address] [place] [address]5961 Folate [Mass/Vol]on 01-11-20 24 FOLIC ACID >25.0 Normal >5.8 [facility] Comment on above: Result Comment: NEW REFERENCE RANGE Performed By: #### 1 3965-9, CBCA, FEPR, THYR, 2276-4, 2-9, 2284-8, IMEL, SPE #### [facility] ([id number]) [address] [facility], [address] [place] [address] #### MTHFRS #### [facility] ([id number]) [address] [place] [address] 46786 HGB A1C (GLYCO-HGB)on 2023 Glucose [Mass/Vol] 108 mg/dL Normal [facility] Comment on above: Performed By: #### 1 3965-9, CBCA, FEPR, THYR, 2276-4, 2-9, 2284-8, IMEL, SPE #### [facility] ([id number]) [address] [facility], [address] [place] [address] #### MTHFRS #### [facility] ([id number]) [address] [place] [address] 38601 HbA1c (Bld) [Mass fraction] 5.4 % Normal 4.4-5.6 [facility] Comment on above: Result Comment: NOTE [...] THYR, 6-4, 9, 8, IMEL, SPE #### [facility] ([id number]) [facility], [address] [address] #### MTHFRS #### [facility] ([id number]) [address] [place] [address]278 Homocysteine [Moles/Vol]on 0 01-11-2024 HOMOCYSTEINE 14.23 mcmol/L Normal 3.36-20.44 [facility] Comment on above: Performed By: #### 1 3965-9, CBCA, FEPR, THYR, 2276-02, 2132-07, 2284-06, IMEL, SPE #### [facility] ([id number]) [address] [place] [address] #### MTHFRS #### [facility] ([id number]) [address] [place] [address] 47109 IMMUNOELECTROPHORESIS FOR TH ERAPY MONITORINGon 01-11-2024 FREE IRASEMA/LAMBD RATIO 1.64 Normal 0.26-1.65 [facility] Comment on above: Performed By: #### 1 3965-9, CBCA, FEPR, THYR, 6-4, 2132-07, 2284-06, IMEL, SPE #### [facility] ([id number]) [address] [place] [address] #### MTHFRS #### [facility] ([id number]) [address] [place] [address] 87462 FREE KAPPA LT CHAINS 3.45 mg/dL High 0.33-1.94 [facility] Comment on above: Performed By: #### 1 3965-9, CBCA, FEPR, THYR, 6-4, 9, 2283-8, IMEL, SPE #### [facility] ([id number]) [address], [address] [place] [address] #### MTHFRS #### [facility] ([id number]) [address] [place] [address] FREE LAMBDA LT CHAINS 2.10 mg/dL Normal 0.57-2.63 [facility] Comment on above: Performed By: #### 1 3965-9, CBCA, FEPR, THYR, 6-4, 9, 8, IMEL, SPE #### [facility] ([id number]) [address], [address] [place] [address] #### MTHFRS #### [facility] ([id number]) [address] [place] [address] 56862 IgA [Mass/Vol] 225 mg/dL Normal 68-378 [facility] Comment on above: Performed By: #### 1 3965-9, CBCA, FEPR, THYR, 6-4, 2132-07, 8, IMEL, SPE #### [facility] ([id number]) [address], [address] [place] [address] #### MTHFRS #### [facility] ([id number]) [address] [place] [address] 80392 IgG [Mass/Vol] 652 mg/dL Normal 635-1741 [facility] Comment on above: Performed By: #### 1 3965-9, CBCA, FEPR, THYR, 6-4, 9, 8, IMEL, SPE #### [facility] ([id number]) [address] [facility], [address] [place] [address] #### MTHFRS #### [facility] ([id number]) [address] [place] [address] 41705 IgM [Mass/Vol] 64 mg/dL Normal 45-281 [facility] Comment on above: Performed By: #### 1 3965-9, CBCA, FEPR, THYR, 2276-4, 2132-9, 2284-8, IMEL, SPE #### [facility] ([id number]) [address] [facility], [address] [place] [address] #### MTHFRS #### [facility] ([id number]) [address] [place] [address] 11748 IMMUNE PROFILE INTERP SEE SEPARATE REPORT Normal [facility] Comment on above: Performed By: #### 1 3965-9, CBCA, FEPR, THYR, 2276-4, 2-9, 2284-8, IMEL, SPE #### [facility] ([id number]) [address] [place] [address], [address] [address] #### MTHFRS #### [facility] ([id number]) [address] [place] [address] 87504 IRON PROFILEon 01-11-2024 Iron [Mass/Vol] 100 ug/dL Normal 50-170 [facility] Comment on above: Performed By: #### 1 3965-9, CBCA, FEPR, THYR, 2276-4, 2132-9, 2284-8, IMEL, SPE #### [facility] ([id number]) [address] [place] [address], [address] [place] [address] #### MTHFRS #### [facility] ([id number]) [address] [place] [address]328 IRON BINDING 438 ug/dL High 250-425 [facility] Comment on above: Performed By: #### 1 3965-9, CBCA, FEPR, THYR, 2276-4, 2131-9, 4-8, IMEL, SPE #### [facility] ([id number]) [address] [facility], [address] [place] [address] #### MTHFRS #### [facility] ([id number]) [address] [place] [address] IRON SATURATION 23 % SATURATION Normal 15-50 [facility] Comment on above: Performed By: #### 1 3965-9, CBCA, FEPR, THYR, 2276-4, 2131-9, 2283-8, IMEL, SPE #### [facility] ([id number]) [address] [facility], [address] [place] [address] #### MTHFRS #### [facility] ([id number]) [address] [place] [address] MTHFRon 01-11-2024 MTHFR INTERPRETATION SEE NOTE Normal [facility] Comment on above: Result Comment: NOTE Indication for testing: Determine genetic contribution to hyperhomocysteinemia. Negative: Neither of the common MTHFR gene variants tested, c.665C>T (previously designated C677T) and c.1286A>C (previously designated W0073O), were detected. Other causes of elevated homocysteine [...] has an effect on cardiovascular disease. The [employer] Practice Guidelines indicate [...] a contributing factor to hyperhomocysteinemia. Variants Tested: c.665C>T(p.Kvh373Ihb) and c.1286A>C(p.Uwb166Xvo). (legacy names C677T and G0525J, respectively). Clinical Sensitivity: Undefined; hyperhomocysteinemia is caused [...] developed and its performance characteristics determined by [facility]. It has not been cleared or approved by the [place] Food and Drug Administration. This test was performed in a CLIA certified laboratory and is intended for clinical purposes. Counseling and informed consent are recommended for genetic testing. Consent forms are available online. Performed By: [facility] [address] [place] [address] Linux Developer: Jacob Sparks MD, PhD [place] Number: [id number] Performed By: #### 1 3965-9, CBCA, FEPR, THYR, 6, 2132-07, 2284-06, JOSHUA GONZALEZ #### [facility] ([id number]) [address] [place] [address], [address] [place] [address] #### MTHFRS #### [facility] ([id number]) [address] [place] [address], [place] [address] MTHFR MUT S5335IV Negative Normal [facility] Comment on above: Performed By: #### 1 3965-9, CBCA, FEPR, THYR, 2276-, 2132-07, 2284-06, CARLOS SPE #### [facility] ([id number]) [address] [facility], [address] [place] [address] #### MTHFRS #### [facility] ([id number]) [address] [place] [address]48 MTHFR MUT C665CT Negative Normal [facility] Comment on above: Performed By: #### 1 3965-9, CBCA, FEPR, THYR, 2276-4, 2131-9, 2284-8, IMEL, SPE #### [facility] ([id number]) [address] [facility], [address] [place] [address] #### MTHFRS #### [facility] ([id number]) [address] [place] [address] MTHFR PCR SPECIMEN WHOLE BLOOD Normal [facility] Comment on above: Performed By: #### 1 3965-9, CBCA, FEPR, THYR, 6-4, 2131-9, 4-8, IMEL, SPE #### [facility] ([id number]) [address] [facility], [address] [place] [address] #### MTHFRS #### [facility] ([id number]) [address] [place] [address] 37771 Methylmalonate [Moles/Vol]on 01-11-2024 MMA QN 0.14 umol/L Normal <=0.40 [facility] Comment on above: Result Comment: NOTE This test was developed and its performance characteristics determined by [facility] [place] [facility]). It has not been cleared or approved by the FDA. [facility] is regulated under CLIA as qualified to perform high-complexity testing. This test is used for clinical purposes. It should not be regarded as investigational or for research. Test Performed By: [facility] [address] [place] [address] Linux Developer: Berry Larsen III, M.D. CLIA #[id number] Performed By: #### 1 3965-9, CBCA, FEPR, THYR, 2276-4, 2-9, 2284-8, IMEL, SPE #### [facility] ([id number]) [address], [address] [place] [address] #### MTHFRS #### [facility] ([id number]) [address] [place] [address] SERUM PROTEIN ELECTROPHORESI Son 01-11-2024 Albumin [Mass/Vol] 4.0 g/dL Normal 3.4-5.3 [facility] Comment on above: Performed By: #### 1 3965-9, CBCA, FEPR, THYR, 6-4, 2131-9, 4-8, IMEL, SPE #### [facility] ([id number]) [address], [address] [place] [address] #### MTHFRS #### [facility] ([id number]) [address] [place] [address] ALPHA 1 GLOBULIN 0.3 g/dL Normal 0.1-0.4 [facility] Comment on above: Performed By: #### 1 3965-9, CBCA, FEPR, THYR, 6-4, 2131-9, 4-8, IMEL, SPE #### [facility] ([id number]) [address], [address] [place] [address] #### MTHFRS #### [facility] ([id number]) [address] [place] [address]85 ALPHA 2 GLOBULIN 0.8 g/dL Normal 0.4-1.1 [facility] Comment on above: Performed By: #### 1 3965-9, CBCA, FEPR, THYR, 2276-4, 2-9, 2284-8, IMEL, SPE #### [facility] ([id number]) [address] [place] [address], [address] [place] [address] #### MTHFRS #### [facility] ([id number]) [address] [place] [address] 83549 BETA GLOBULIN 0.8 g/dL Normal 0.5-1.2 [facility] Comment on above: Performed By: #### 1 3965-9, CBCA, FEPR, THYR, 2276-4, 2-9, 2284-8, IMEL, SPE #### [facility] ([id number]) [facility], [address] [place] [address] #### MTHFRS #### [facility] ([id number]) [address] [place] [address] GAMMA GLOBULIN 0.7 g/dL Normal 0.5-1.6 [facility] Comment on above: Performed By: #### 1 3965-9, CBCA, FEPR, THYR, 6-4, 2131-9, 2284-8, IMEL, SPE #### [facility] ([id number]) [address] [place] [address], [address] [place] [id number] #### MTHFRS #### [facility] ([id number]) [address] [place] [address] PROT. ELECTROPHORESIS INTERP Unremarkable protein distribution, no monoclonal bands. Normal [facility] Comment on above: Performed By: #### 1 3965-9, CBCA, FEPR, THYR, 2276-4, 2131-9, 4-8, IMEL, SPE #### [facility] ([id number]) [address] [place] [address], [address] [place] [address] #### MTHFRS #### [facility] ([id number]) [address] [place] [address]27 Protein [Mass/Vol] 6.5 g/dL Normal 6.0-8.0 [facility] Comment on above: Performed By: #### 1 3965-9, CBCA, FEPR, THYR, 2276-4, 2131-9, 4-8, IMEL, SPE #### [facility] ([id number]) [address] [facility], [address] [place] [address] #### MTHFRS #### [facility] ([id number]) [address] [place] [address] THYROID PROFILEon 01-11-2024 Free T4 [Mass/Vol] 1.09 ng/dL Normal 0.61-1.60 [facility] Comment on above: Performed By: #### 1 3965-9, CBCA, FEPR, THYR, 6-4, 9, 2283-8, IMEL, SPE #### [facility] ([id number]) [address] [facility], [address] [place] [address] #### MTHFRS #### [facility] ([id number]) [address] [place] [address] TSH 0.60 uIU/mL Normal 0.49-4.67 [facility] Comment on above: Performed By: #### 1 3965-9, CBCA, FEPR, THYR, 6-4, 2131-9, 2283-8, IMEL, SPE #### [facility] ([id number]) [address] [facility], [address] [place] [address] #### MTHFRS #### [facility] ([id number]) [address] [place] [address] VITAMIN B12on 01-11-2024 Cobalamin (Vitamin B12) [Mass/Vol] 407 pg/mL Normal 180-914 [facility] Comment on above: Performed By: #### 1 3965-9, CBCA, FEPR, THYR, 6-4, 9, 4-8, IMEL, SPE #### [facility] ([id number]) [address], [address] [place] [address] #### MTHFRS #### [facility] ([id number]) [address] [facility] [place]], [place] [address] DEXA SCAN CENTRAL SKELETALon 12-06-2023 DEXA SCAN [...] Ann MD on 12/06/2023 2:10 AM Normal [facility] CT Abdomen/Pelvis w + w/o Co [...] by Felix Dominguez on 12/07/2022 [address] [facility] Specialist XR HAND LEFT (MIN 3 VIEWS)on [...] Matt Cowart MD 11/07/22 Final result Normal [facility] XR HAND LEFT (MIN 3 VIEWS) [...] Matt Cowart MD 11/07/22 Final result Normal [facility] XR Chest 2 Views*on 09-10-20 XR [...] [place]on on 09/10/2022 1507 Normal [facility] Complete Blood Count with Au to Diffon 12-11-2021 Basophils (Bld) [#/Vol] 0.07 10*3/uL Normal 0.00-0.20 [facility] Comment on above: Performed By: #### C LG, CBCAD #### [facility] [address] [place], [place] [id number] Basophils/100 WBC (Bld) 0.9 % Normal N [facility] Comment on above: Performed By: #### C LG, CBCAD #### [facility] [address] [place], [place] [id number] Eosinophils (Bld) [#/Vol] 0.17 10*3/uL Normal 0.02-0.50 [facility] Comment on above: Performed By: #### C LG, CBCAD #### [facility] [address] [place], [place] [id number] Eosinophils/100 WBC (Bld) 2.3 % Normal [facility] [place] Comment on above: Performed By: #### C LG, CBCAD #### [facility] [address] [place], [place] [id number] Erythrocyte distribution width (RBC) [Ratio] 16.4 % High 11.0-15.0 [facility] Comment on above: Performed By: #### C LG, CBCAD #### [facility] [address] [place], [place] [id number] Hematocrit (Bld) [Volume fraction] 42.9 % Normal 35.0-47.0 [facility] Comment on above: Performed By: #### C LG, CBCAD #### [facility] [address] [place], [place] [id number] Hemoglobin (Bld) [Mass/Vol] 13.5 g/dL Normal 11.6-15.5 [facility] Comment on above: Performed By: #### C MP, CBCAD #### [facility] [address] [place], [place] [id number] Lymphocytes (Bld) [#/Vol] 2.7 10*3/uL Normal 0.9-3.9 [facility] [place] Comment on above: Performed By: #### C MP, CBCAD #### [facility] [address] [place], [place] [id number] Lymphocytes/100 WBC (Bld) 36.1 % Normal [facility] Comment on above: Performed By: #### C MP, CBCAD #### [facility] [address] [place], [place] [id number] MCH (RBC) [Entitic mass] 27.7 pg Normal 27.0-33.0 [facility] Comment on above: Performed By: #### C MP, CBCAD #### [facility] [address] [place], [place] [id number] MCHC (RBC) [Mass/Vol] 31.5 g/dL Low 32.0-36.0 [facility] Comment on above: Performed By: #### C MP, CBCAD #### [facility] [address] [place], [place] [id number] MCV (RBC) [Entitic vol] 88 fL Normal 80-100 [facility] Comment on above: Performed By: #### C MP, CBCAD #### [facility] [address] [place], [place] [id number] Monocytes (Bld) [#/Vol] 0.8 10*3/uL Normal 0.2-0.9 [facility] Comment on above: Performed By: #### C MP, CBCAD #### [facility] [address] [place], [place] [id number] Monocytes/100 WBC (Bld) 10.8 % Normal [facility] Comment on above: Performed By: #### C MP, CBCAD #### [facility] [address] [place], [place] [id number] Neutrophils (Bld) [#/Vol] 3.7 10*3/uL Normal 1.5-7.[address] [facility] Specialist Comment on above: Performed By: #### C MP, CBCAD #### [facility] [address] [place], [place] [id number] Neutrophils/100 WBC (Bld) 49.2 % Normal [facility] [place] Comment on above: Performed By: #### C MP, CBCAD #### [facility] [address] [place], [place] [id number] Platelet mean volume (Bld) [Entitic vol] 11.00 fL Normal 7.50-12.50 [facility] Critical Care Nurse Comment on above: Performed By: #### C MP, CBCAD #### [facility] [address] [place], [place] [id number] Platelets (Bld) [#/Vol] 246 10*3/uL Normal 140-[address] [facility] Specialist Comment on above: Performed By: #### C MP, CBCAD #### [facility] [address] [place], [place] [id number] RBC (Bld) [#/Vol] 4.88 10*6/uL Normal 3.90-5.20 [facility] Specialist Comment on above: Performed By: #### C MP, CBCAD #### [facility] [address] [place], [place] [id number] RDW-SD 53.1 fL High 37.0-50.[address] [facility] Specialist Comment on above: Performed By: #### C MP, CBCAD #### [facility] [address] [place], [place] [id number] WBC (Bld) [#/Vol] 7.5 10*3/uL Normal 3.8-11.0 [facility] Critical Care Nurse Comment on above: Performed By: #### C MP, CBCAD #### [facility] [address] [place], [place] [id number] Comprehensive Metabolic Pane gadiel 12-11-2021 Albumin [Mass/Vol] 4.2 g/dL Normal 3.6-5.1 [facility] Critical Care Nurse Comment on above: Performed By: #### C MP, CBCAD #### [facility] [address] [facility] [place] [id number] Albumin/Globulin [Mass ratio] 1.7 {ratio} Normal 1.0-2.5 [facility] Comment on above: Performed By: #### C MP, CBCAD #### [facility] [address] [facility] [place] [place] [id number] ALP [Catalytic activity/Vol] 71 U/L Normal 35-119 [facility] [place] Comment on above: Performed By: #### C MP, CBCAD #### [facility] [address] [place] [id number] ALT [Catalytic activity/Vol] 12 U/L Normal 6-33 [facility] Comment on above: Result Comment: 10/22 Female reference range changed. Performed By: #### C MP, CBCAD #### [facility] [address] [facility] [place] [place] [id number] Anion gap [Moles/Vol] 18 mmol/L Normal 12-20 [facility] Comment on above: Result Comment: Effe ctive 11/27/2019 reference range changed. Performed By: #### C MP, CBCAD #### [facility] [address] [facility] [place] [place] [id number] AST [Catalytic activity/Vol] 15 U/L Normal 9-34 [facility] Comment on above: Performed By: #### C MP, CBCAD #### [facility] [address] [facility] [place] [place] [id number] Bilirubin [Mass/Vol] 0.33 mg/dL Normal 0.30-1.20 [facility] Comment on above: Performed By: #### C MP, CBCAD #### [facility] [address] [place] [id number] BUN/CREA 35 Ratio High 6-22 [facility] Comment on above: Performed By: #### C MP, CBCAD #### [facility] [address] [place], [place] [id number] Calcium [Mass/Vol] 9.4 mg/dL Normal 8.6-10.2 [facility] Comment on above: Performed By: #### C MP, CBCAD #### [facility] [address] [place], [place] [id number] Chloride [Moles/Vol] 106 mmol/L Normal 98-107 [facility] Comment on above: Performed By: #### C MP, CBCAD #### [facility] [address] [place], [place] [id number] CO2 [Moles/Vol] 24 mmol/L Normal 20-31 [facility] Comment on above: Performed By: #### C MP, CBCAD #### [facility] [address] [place], [place] [id number] Creatinine [Mass/Vol] 0.9 mg/dL Normal 0.6-1.4 [facility] Comment on above: Performed By: #### C MP, CBCAD #### [facility] [address] [place], [place] [id number] eGFRAA 70 mL/min/1.73m2 Normal >60 [facility] Comment on above: Performed By: #### C MP, CBCAD #### [facility] [address] [place], [place] [id number] eGFRNAA 58 mL/min/1.73m2 Low >60 [facility] Comment on above: Performed By: #### C MP, CBCAD #### [facility] [address] [place], [place] [id number] Globulin (S) [Mass/Vol] 2.5 g/dL Normal 1.9-3.7 [facility] Comment on above: Performed By: #### C MP, CBCAD #### [facility] [address] [place], [place] [id number] Glucose [Mass/Vol] 84 mg/dL Normal 65-99 [facility] Comment on above: Result Comment: For FASTING Glucose --- ADA reference ranges: Normal 65-99 mg/dl Prediabetes 100-125 Diabetes >/= 126 Performed By: #### C MP, CBCAD #### [facility] [address] [place], [place] [id number] Potassium [Moles/Vol] 4.3 mmol/L Normal 3.5-5.5 [facility] [place] [facility] Nurse Comment on above: Performed By: #### C MP, CBCAD #### [facility] [address] [place], [place] [id number] Protein [Mass/Vol] 6.7 g/dL Normal 6.1-8.1 [facility] [place] [facility] Nurse Comment on above: Performed By: #### C MP, CBCAD #### [facility] [address] [place], [place] [id number] Sodium [Moles/Vol] 143 mmol/L Normal 135-146 [facility] [place] [facility] Nurse Comment on above: Performed By: #### C MP, CBCAD #### [facility] [address] [place], [place] [id number] Urea nitrogen [Mass/Vol] 33 mg/dL High 7-[address] [facility] Specialist Comment on above: Performed By: #### C MP, CBCAD #### [facility] [address] [place], [place] [id number] Calciumon 06-20-2019 Calcium [Mass/Vol] 10.0 mg/dL Normal 8.4-10.2 [facility] Comment on above: Performed By: #### 1 030, 1035, 4500, 4510, 4520, 4581 #### [facility] Unless Otherwise Noted [address] [address] / COLA #4724/CLIA # [id number] Creatinineon 06-20-2019 Creatinine [Mass/Vol] 0.9 mg/dL Normal 0.5-1.0 [facility] Comment on above: Performed By: #### 1 030, 1035, 4500, 4510, 4520, 4581 #### [facility] Unless Otherwise Noted [address] [facility] [address] [place] [address] / [facility] #4724/CLIA # [id number] Creatinine [Mass/Vol] 74.8 Kg Normal End [facility] Comment on above: Performed By: #### 1 030, 1035, 4500, 4510, 4520, 4581 #### [facility] Unless Otherwise Noted [address] [address] / COLA #4724/CLIA # [id number] Creatinine [Mass/Vol] 64.8 ml/m1.73 Normal [facility] Comment on above: Performed By: #### 1 030, 1035, 4500, 4510, 4520, 4581 #### [facility] Unless Otherwise Noted [address] [address] / COLA #4724/CLIA # [id number] Creatinine [Mass/Vol] 65.1 ml/m1.73 Normal [facility] Comment on above: Performed By: #### 1 030, 1035, 4500, 4510, 4520, 4581 #### [facility] Unless Otherwise Noted [address] [address] / COLA #4724/CLIA # [id number] Creatinine [Mass/Vol] 78.7 ml/m1.73 Normal [facility] Comment on above: Performed By: #### 1 030, 1035, 4500, 4510, 4520, 4581 #### [facility] Unless Otherwise Noted [address] [address] / COLA #4724/CLIA # [id number] FT3on 06-20-2019 FT3 2.80 pg/mL Normal 2.45-5.93 [facility] Comment on above: Performed By: #### 1 030, 1035, 4500, 4510, 4520, 4581 #### [facility] Unless Otherwise Noted [address] [address] / COLA #4724/CLIA # [id number] FT4on 06-20-2019 Free T4 [Mass/Vol] 1.93 ng/dL Normal 0.78-2.44 [facility] Diabetes [facility] Comment on above: Performed By: #### 1 030, 1035, 4500, 4510, 4520, 4581 #### [facility] Unless Otherwise Noted [address] [place] [address] / COLA #4724/CLIA # [id number] TSHon 06-20-2019 TSH Qn 0.57 uIU/ml Normal 0.47-4.68 [facility] Comment on above: Performed By: #### 1 030, 1035, 4500, 4510, 4520, 4581 #### [facility] Unless Otherwise Noted [address] [place] [address] / COLA #4724/CLIA # [id number] VITAMIN D 25on 06-20-2019 VITAMIN D 25 51.5 ng/ml Normal 30.0-100.0 [facility] Comment on above: Result Comment: Defi cient <20 Insufficient 20-<30 Sufficient 30-100 Potiential Toxicity >100 Performed By: #### 1 030, 1035, 4500, 4510, 4520, 4581 #### [facility] Unless Otherwise Noted [address] [address] / COLA #4724/CLIA # [id number] Basic Metabolic Profon 05-06 (cont.) Normal [facility] Comment on above: Result Comment: Aver age GFR for 70 or more years old: 75 mL/min/1.73sq mChronic Kidney Disease: <60 mL/min/1.73sq mKidney failure: <15 mL/min/1.73sq meGFR calculated using average adult body mass. Additional eGFR calculator available at:[email or web address]-[email or web address]_[email or web address] at [facility] [address] [place] [address] Performed By: #### C DP, BMP ####[facility] [place] [address] [place] [address] Anion gap 14 mmol/L Normal 9-17 [facility] Comment on above: Performed By: #### C DP, BMP ####[facility] [facility] [place] [address] Calcium 9.6 mg/dL Normal 8.6-10.4 [facility] Comment on above: Performed By: #### C DP, BMP ####[facility] [place] [address] Chloride 106 mmol/L Normal 98-107 [facility] Comment on above: Performed By: #### C DP, BMP ####[facility] [place] [address] CO2 26 mmol/L Normal 20-31 [facility] Comment on above: Performed By: #### C DP, BMP ####[facility] [facility] [place] [address] Creatinine 0.91 mg/dL High 0.50-0.90 [facility] Comment on above: Performed By: #### C DP, BMP ####[facility] [place] [address] eGFR (non-black) mL/min/{1.73_m2} Normal >60 [facility] Comment on above: Performed By: #### C DP, BMP ####[facility] [place], [place] [address] [facility] [place] [address] Glucose mass conc 99 mg/dL Normal 70-99 [facility] Comment on above: Performed By: #### C DP, BMP ####[address] [address] Potassium molar conc 4.2 mmol/L Normal 3.7-5.3 [facility] Comment on above: Performed By: #### C DP, BMP ####[address] [address] Sodium 146 mmol/L High 135-144 [facility] Comment on above: Performed By: #### C DP, BMP ####[address] [address] Urea nitrogen 21 mg/dL Normal 8-23 [facility] Comment on above: Performed By: #### C DP, BMP ####[address] [address] BUN/CRE Ratio NOT REPORTED Normal 9-20 [facility] Comment on above: Performed By: #### C DP, BMP ####[address] [address] Staging: NOT REPORTED Normal [facility] Comment on above: Performed By: #### C DP, BMP ####[address] [address] CBC with Diffon 05-06-2018 Abs. Basophil 0.10 k/uL Normal 0.0-0.2 [facility] Comment on above: Result Comment: Perf ormed at [facility] [address] [place] [address] Performed By: #### C DP, BMP ####[address] [address] Abs.Neutrophil (Seg) 4.00 k/uL Normal 1.3-9.1 [facility] Comment on above: Performed By: #### C DP, BMP ####[facility] [place] [address] Basophils/100 WBC Auto (Bld) 1 % Normal 0-2 [facility] Comment on above: Performed By: #### C DP, BMP ####[facility] [place] [address] Eosinophils 0.20 10*3/uL Normal 0.0-0.4 [facility] Comment on above: Performed By: #### C DP, BMP ####[address] [address] Eosinophils/100 leukocytes 2 % Normal 0-4 [facility] Comment on above: Performed By: #### C DP, BMP ####[address] [address] Erythrocyte distribution width Auto Ratio (RBC) 13.9 % Normal 11.5-14.9 [facility] Comment on above: Performed By: #### C DP, BMP ####[address] [address] Erythrocytes (RBC) 4.68 10*6/uL Normal 4.0-5.2 [facility] Comment on above: Performed By: #### C DP, BMP ####[address] [address] Hematocrit (HCT) 41.8 % Normal 36-46 [facility] Comment on above: Performed By: #### C DP, BMP ####[address] [address] Hemoglobin mass conc (Bld) 13.7 g/dL Normal 12.0-16.0 [facility] Comment on above: Performed By: #### C DP, BMP ####[facility] [place] [address] Lymphocytes 3.20 10*3/uL Normal 1.0-4.8 [facility] Comment on above: Performed By: #### C DP, BMP ####[facility] [place] [address] Lymphocytes/100 leukocytes 39 % Normal 24-44 [facility] Comment on above: Performed By: #### C DP, BMP ####[facility] [facility] [place] [address] MCH 29.3 pg Normal 26-34 [facility] Comment on above: Performed By: #### C DP, BMP ####[facility] [facility] [place] [address] MCHC mass conc (RBC) 32.8 g/dL Normal 31-37 [facility] Comment on above: Performed By: #### C DP, BMP ####[facility] [facility] [place] [address] MCV 89.3 fL Normal 80-100 [facility] Comment on above: Performed By: #### C DP, BMP ####[facility] [facility] [place] [address] Monocytes 0.90 10*3/uL Normal 0.1-1.3 [facility] Comment on above: Performed By: #### C DP, BMP ####[facility] [facility] [place] [address] Monocytes/100 leukocytes 11 % High 1-7 [facility] Comment on above: Performed By: #### C DP, BMP ####[facility] [place] [address] Neutrophil (Seg) 47 % Normal 36-66 [facility] Comment on above: Performed By: #### C DP, BMP ####[facility] [place] [address] Platelet mean volume (PMV) 10.3 fL Normal 6.0-12.0 [facility] Comment on above: Performed By: #### C DP, BMP ####[address] [address] Platelets 232 10*3/uL Normal 150-450 [facility] Comment on above: Performed By: #### C DP, BMP ####[address] [address] WBC (Leukocytes) 8.4 10*3/uL Normal 3.5-11.0 [facility] Comment on above: Performed By: #### C DP, BMP ####[address] [address] Auto Diff Performed NOT REPORTED Normal [facility] Comment on above: Performed By: #### C DP, BMP ####[facility] [place] [address] Erythrocyte morphology NOT REPORTED Normal [facility] Comment on above: Performed By: #### C DP, BMP ####[address] [address] Erythrocytes (RBC) NOT REPORTED Normal [facility] Comment on above: Performed By: #### C DP, BMP ####[address] [address] Granulocytes/100 WBC (Bld) NOT REPORTED Normal 0.00-0.30 [facility] Comment on above: Performed By: #### C DP, BMP ####[address] [address] Immature granulocytes #/vol (Bld) NOT REPORTED Normal 0 [facility] Comment on above: Performed By: #### C DP, BMP ####[facility] [facility] [place] [address] Platelets NOT REPORTED Normal [facility] Comment on above: Performed By: #### C DP, BMP ####[facility] [facility] [place] [address] WBC Morphology NOT REPORTED Normal [facility] Comment on above: Performed By: #### C DP, BMP ####[facility] [place] [address] Vital Signs Date Time Vital Sign Value Performing Clinician Leyda nevarez 04-04-2024 11:29-0400 Body height 160 cm Mandi Hoover MD Work Phone: [facility] 04-04-2024 11:29-0400 Body mass index (BMI) [Ratio] 27.18 kg/m2 Mandi Hoover MD Work Phone: [facility] 04-04-2024 11:29-0400 Body temperature 97.7 [degF] Mandi Hoover MD Work Phone: [facility] 04-04-2024 11:29-0400 Body weight 69.6 kg Mandi Hoover MD Work Phone: [facility] 04-04-2024 11:29-0400 Diastolic blood pressure 65 mm[Hg] Mandi Hoover MD Work Phone: [facility] 04-04-2024 11:29-0400 Heart rate 80 /min Mandi Hoover MD Work Phone: [facility] 04-04-2024 11:29-0400 Respiratory rate 18 /min Mandi Hoover MD Work Phone: [facility] 04-04-2024 11:29-0400 SaO2% (BldA) [Mass fraction] 96 % Mandi Hoover MD Work Phone: [facility] 04-04-2024 11:29-0400 Systolic blood pressure 105 mm[Hg] Mandi Hoover MD Work Phone: [facility] 02-24-2024 12:02-0400 Body height 160 cm Ryan Dallas MD Work Phone: [facility] 02-24-2024 12:02-0400 Body mass index (BMI) [Ratio] 27.21 kg/m2 Ryan Dallas MD Work Phone: [facility] 02-24-2024 12:02-0400 Body weight 69.67 kg Ryan Dallas MD Work Phone: [facility] 02-24-2024 12:02-0400 Diastolic blood pressure 76 mm[Hg] Ryan Dallas MD Work Phone: [facility] 02-24-2024 12:02-0400 Heart rate 78 /min Ryan Dallas MD Work Phone: [facility] 02-24-2024 12:02-0400 Respiratory rate 16 /min Ryan Dallas MD Work Phone: [facility] 02-24-2024 12:02-0400 SaO2% (BldA) [Mass fraction] 94 % Ryan Dallas MD Work Phone: [facility] 02-24-2024 12:02-0400 Systolic blood pressure 147 mm[Hg] Ryan Dallas MD Work Phone: [facility] 01-07-2024 10:29-0500 Body height 160 cm Yoanna Dorsey APRN-SENIOR PHYSICAL THERAPIST Work Phone: [facility] 01-07-2024 10:29-0500 Body mass index (BMI) [Ratio] 27.63 kg/m2 Yoanna Dorsey APRN-SENIOR PHYSICAL THERAPIST Work Phone: [facility] 01-07-2024 10:29-0500 Body weight 70.76 kg Yoanna Willian FILLING WINDER-SENIOR PHYSICAL THERAPIST Work Phone: [facility] 01-07-2024 10:29-0500 Diastolic blood pressure 78 mm[Hg] Yoanna Dorsey FILLING WINDER-SENIOR PHYSICAL THERAPIST Work Phone: [facility] 01-07-2024 10:29-0500 Heart rate 80 /min Yoanna Dorsey FILLING WINDER-SENIOR PHYSICAL THERAPIST Work Phone: [facility] 01-07-2024 10:29-0500 Systolic blood pressure 124 mm[Hg] Yoanna Dorsey FILLING WINDER-SENIOR PHYSICAL THERAPIST Work Phone: [facility] Encounters Encounter Date Encounter Type Care Provider Facility Start: 08-14-2024 End: 08-14-2024 ambulatory [facility] Not Available Start: 08-08-2024 End: 08-08-2024 ambulatory [facility] CA[facility] Not Available Start: 07-13-2024 End: 07-13-[address] [facility] Start: 07-10-2024 End: 07-10-2024 ambulatory BIA CAO Not Available Start: 07-10-2024 End: 07-10-2024 ambulatory [facility] Start: 07-03-2024 End: 07-03-2024 ambulatory RUBÉNSERG ROBKevinTRISHA Not Available Start: 06-14-2024 End: 06-14-2024 ambulatory [facility] Start: 05-09-2024 Orders Only Mandi gambino MD Work Phone: [facility] Comment on above: Intracranial meningi brandon (HCC) (Primary Dx); Benign neoplasm of meninges (HCC) Start: 05-04-2024 End: 05-04-2024 ambulatory [facility] Not Available Start: 05-01-2024 End: 05-01-2024 ambulatory Adelfo Hansen MD Facility: [facility] Start: 04-05-2024 End: 04-05-2024 ambulatory [facility] Not Available Start: 04-04-2024 End: 04-04-2024 ambulatory MANDI HOOVER Facility:[facility] Start: 04-04-2024 End: 04-04-2024 Patient encounter procedure Mandi Hoover MD Work Phone: [facility] Comment on above: Intracranial meningi brandon (HCC) (Primary Dx); Sensorineural hearing loss (SNHL) of right ear, unspecified hearing status on contralateral side; Dizziness Start: 04-03-2024 End: 04-03-2024 ambulatory [facility] Not Available Start: 03-24-2024 Telephone encounter Neurology Provid er Neurology Comment on above: Received Outside [facility] Records (External referral to Neurological [place]/); triage; Nurse Triage Call; Appointment Start: 03-24-2024 End: 03-24-2024 ambulatory [facility] Start: 03-16-2024 ambulatory [facility] Start: 03-13-2024 End: 03-13-2024 ambulatory Adelfo Hansen MD Facility:[facility] Start: 03-10-2024 End: 03-10-[address] [facility] Start: 03-02-2024 End: 03-02-2024 ambulatory [facility] Not Available Start: 02-24-2024 End: 02-24-2024 Office outpatient visit 15 minutes Ryan Dallas MD [facility] Comment on above: Essential hypertensi on (Primary Dx); LVH (left ventricular hypertrophy); Mixed hyperlipidemia; Hypotension due to drugs Start: 02-22-2024 End: 02-22-2024 ambulatory BIA CAO Not Available Start: 02-15-2024 End: 02-15-2024 ambulatory BIA CAO Not Available Start: 02-11-2024 End: 02-12-2024 Emergency department patient visit JUAN TAMEZ [facility] Start: 02-10-2024 Orders Only Ryan aquino MD [facility] Comment on above: Essential hypertensi on Start: 02-09-2024 Refill Doris Hawkins RN [facility] Start: 02-07-2024 End: 02-07-2024 ambulatory Adelfo Hansen MD Facility: [place] Start: 01-18-2024 End: 01-18-2024 ambulatory RIA SNYDER Not Available Start: 01-12-2024 End: 01-12-2024 ambulatory RIA SNYDER Not Available Start: 01-11-2024 End: 01-11-2024 ambulatory [facility] Start: 01-10-2024 End: 01-10-2024 ambulatory Adelfo Hansen MD Facility: [facility] Start: 01-07-2024 End: 01-07-2024 Office outpatient visit 25 minutes Yoanna Dorsey FILLING WINDER-SENIOR PHYSICAL THERAPIST Work Phone: [facility] Comment on above: Migraine without aur a and without status migrainosus, not intractable (Primary Dx); Bilateral occipital neuralgia; Essential tremor; Cervicalgia; Trapezius muscle spasm; Balance problem; Psychophysiological insomnia; Polyneuropathy; Prediabetes; Essential (primary) hypertension; Abnormal level of blood mineral; Decreased hearing of both ears Start: 01-07-2024 End: 01-07-[address] [facility] Start: 01-06-2024 End: 01-06-2024 ambulatory Ria Snyder OCCUPATIONAL THER Work Phone: [facility] Comment on above: General weakness (Pr imary Dx); History of falling Start: 01-04-2024 Bamboo flowsheet Ria Lopezig ht OCCUPATIONAL THER Work Phone: [facility] Start: 01-04-2024 Bamboo flowsheet Ria Wrig ht OCCUPATIONAL THER Work Phone: [facility] Start: 01-04-2024 End: 01-04-2024 ambulatory Ria Snyder OCCUPATIONAL THER Work Phone: [facility] Comment on [...] Start: 12-23-2023 End: 12-23-2023 ambulatory Ria Snyder OCCUPATIONAL THER Work Phone: [facility] Comment on above: General weakness (Pr imary Dx); History of falling Start: 12-21-2023 End: 12-21-2023 ambulatory RIA SNYDER Not Available Start: 12-16-2023 End: 12-16-2023 ambulatory RIA SNYDER Not Available Start: 12-13-2023 Refill John aggarwal MD Work Phone: [facility] Start: 12-08-2023 End: 12-08-2023 ambulatory ELMER PETTIT Not Available Start: 12-07-2023 End: 12-07-2023 ambulatory SANTO GARCIA Not Available Start: 12-06-2023 End: 12-06-2023 ambulatory BIA Anny ALVARADOER Not Available Start: 12-03-2023 End: 12-03-2023 ambulatory JOHN JOHNSON [facility] Start: 11-29-2023 End: 11-29-2023 ambulatory LALIT Guillermo [facility] Start: 11-23-2023 End: 11-23-2023 ambulatory BIA F NASH Not Available Start: 11-11-2023 End: 11-11-2023 ambulatory ELMER DUMONTGS Not Available Start: 11-08-2023 End: 11-08-2023 ambulatory RIA SNYDER Not Available Start: 11-04-2023 End: 11-04-2023 ambulatory ELMER DUMONTGS Not Available Start: 10-22-2023 End: 10-22-2023 ambulatory BIA F NASH Not Available Start: 09-06-2023 End: 09-06-2023 ambulatory Adelfo Hansen MD Facility:[facility] Start: 07-19-2023 End: 07-19-2023 ambulatory Adelfo Hansen MD Facility:[facility] Start: 07-05-2023 End: 07-05-2023 ambulatory Adelfo Hansen MD Facility: [facility] Start: 10-12-2022 End: 10-12-2022 ambulatory BIA Mccormick [facility] Start: 09-28-2022 End: 09-28-2022 ambulatory [facility] Anny [facility] Start: 05-16-2018 End: 05-16-2018 [facility] Start: 05-06-2018 End: 05-11-2018 Ambulatory LENNY RUTHConnie [facility] Start: 05-02-2018 Patient encounter status Antonietta Johnson MD Work Phone: [facility] [employer] Work Phone: Procedures Date Procedure Procedure Detail Performing Clinician Start: 03-24-2024 Follow-up visit Follow-up ILEANA CORTES Start: 01-07-2024 Adult depression scr eening assessment Yoanna Willian FILLING WINDER-SENIOR PHYSICAL THERAPIST Work Phone: Start: 11-29-2023 Follow-up visit Follow-up LALIT LEACH Start: 04-23-2023 Adult depression scr eening assessment John Johnson MD Work Phone: Start: 05-16-2018 DISCHARGE PATIENT LENNY PEDRAAZ Start: 05-16-2018 BEDREST LENNY PAIZ Start: 05-16-2018 Continuous pulse oximetry LENNY PEDRAZA Start: 05-16-2018 ENCOURAGE DEEP BREAT KELSEA AND COUGHING LENNY PEDRAZA Start: 05-16-2018 NOTIFY PHYSICIAN (SPECIFY) LENNY PEDRAZA Start: 05-16-2018 NURSING COMMUNICATION Adali PEDRAZA Start: 05-16-2018 INITIATE OXYGEN THER APY PROTOCOL LENNY PEDRAZA Start: 05-16-2018 INSERT PERIPHERAL IV MA RK MILO Start: 05-16-2018 VITAL SIGNS LENNY PAIZ Start: 05-06-2018 Basic metabolic pane l calcium total LENNY PEDRAZA Start: 05-06-2018 Blood count complete auto&auto difrntl wbc LENNY PEDRAZA Plan of Treatment Date Care Activity Detail Author Start: 02-10-2027 Diabetes Screening Diabetes Screening [facility] Start: 02-10-2025 Adult BMI Screening Adult BMI Screening [facility] Start: 01-07-2025 Adult BMI Screening Adult BMI Screening [facility] Start: 01-07-2025 Depression Screening Depression Screening [facility] Start: 01-07-2025 Tobacco Screening Tobacco Screening [facility] Start: 12-06-2024 Medicare Annual Wellness (AWV) Medicare Annual Wellness (AWV) [facility] Start: 11-29-2024 Adult BMI Screening Adult BMI Screening [facility] Start: 11-29-2024 Tobacco Screening Tobacco Screening [facility] Start: 10-01-2024 Fall Risk Screening Fall Risk Screening [facility] Start: 08-28-2024 End: 06-08-2025 MR Brain WO and W contrast IV MRI BRAIN WO/W IVCON Radiology Routine Benign neoplasm of meninges (HCC) Expected: 08/28/2024 (Approximate), Expires: 06/08/2025 [facility] Work Phone: Comment on above: Expected: 08/28/2024 (Approximate), Expi res: 06/08/2025 Start: 07-23-2024 Influenza vaccination [facility] Start: 07-10-2024 End: 07-10-2024 Patient encounter procedure 07/10/2024 11:00 AM EDT Office Visit [facility] [address] [place] [address] Yoanna Dorsey APRN-SENIOR PHYSICAL THERAPIST [address] [place] [address] [facility] Start: 05-21-2024 Influenza vaccination Influenza Vaccine (#1) [facility] Comment on above: Postponed from 07/23/2023 (Patient Refus ed) Start: 04-23-2024 Depression Screening Depression Screening [facility] Start: 04-11-2024 End: 04-11-2024 Patient encounter procedure 04/11/2024 2:45 PM EDT Off ice Visit [facility] [address] [place] [address] John Johnson MD [address] [place] [address] [facility] Start: 04-04-2024 End: 04-04-2024 Patient encounter procedure 04/04/2024 10:30 AM EDT Office Visit [facility] [place] [address] [place] [address] Mandi Hoover MD [address] [place] [address] Time Frame: First available [facility] Comment on above: Time Frame: First available Start: 04-03-2024 End: 04-03-2024 Patient encounter procedure 04/03/2024 11:20 AM EDT Office Visit [facility] [address] [place] [phone] Bia Cao MD [address] [place], [place] [phone] [facility] Start: 02-09-2024 End: 02-09-2024 Patient encounter procedure 02/09/2024 11:00 AM EDT Office Visit [facility] [address] [facility] [address] [place] [phone] Ryan Dallas MD [address] [facility] [place], [place] [phone] [facility] Start: 01-20-2024 End: 01-20-2024 ambulatory 01/20/2024 11:00 AM EST Treatment [facility] [address] [place] [phone] Elmer Pettit, PT [address] [place] [address] [facility] Start: 01-18-2024 End: 01-18-2024 ambulatory 01/18/2024 11:30 AM EST Treatment [facility] [address] [place] [phone] Ria Snyder, OCCUPATIONAL THER [address] [place] [address] [facility] Start: 01-14-2024 End: 01-14-2024 ambulatory 01/14/2024 1:00 PM EST Treatment [facility] [address] [place] [address] Ria Snyder, OCCUPATIONAL THER [address] [place] [address] [facility] Start: 01-12-2024 End: 01-12-2024 ambulatory 01/12/2024 12:30 PM EST Treatment [facility] [address] [place] [phone] Ria Snyder, OCCUPATIONAL THER [address] [place] [address] [facility] Start: 01-11-2024 End: 01-11-2024 Patient encounter procedure 01/11/2024 11:00 AM EST Office Visit [facility] [address] [place] [address] Yoanna Dorsey, FILLING WINDER-SENIOR PHYSICAL THERAPIST [address] [place] [address] [facility] Start: 01-06-2024 End: 01-06-2024 ambulatory [facility] Start: 01-04-2024 End: 01-04-2024 ambulatory 01/04/2024 11:30 AM EST Treatment [facility] [address] [place] [phone] Ria Snyder, OCCUPATIONAL THER [address] [place] [address] [facility] Start: 12-31-2023 End: 12-31-2023 ambulatory 12/31/2023 10:00 AM EST Treatment [facility] [address] [place] [phone] Ria Snyder, OCCUPATIONAL THER [address] [place] [address] [facility] Start: 12-30-2023 End: 12-30-2023 ambulatory 12/30/2023 11:30 AM EST Treatment [facility] [address] [place] [phone] Elmer Pettit, PT [address] [place] [address] [facility] Start: 12-28-2023 End: 12-28-2023 ambulatory 12/28/2023 11:30 AM EST Treatment [facility] [address] [place] [phone] Ria Snyder, OCCUPATIONAL THER [address] [place] [address] [facility] Start: 11-22-2023 Advance Directive Discussion Advance Directive [facility] Start: 11-22-2023 Behavioral Health Screening Behavioral Health Screening [facility] Start: 07-23-2023 COVID-19 Vaccine ( season) COVID-19 Vaccine ( season) [facility] Start: 07-23-2023 Influenza vaccination Influenza Vaccine [facility] Start: 08-21-2021 DTaP,Tdap and Td Vaccines (2 - Td or Tdap) DTaP,Tdap and Td Vaccines (2 - Td or Tdap) [facility] Start: 08-22-2011 Urine microalbumin profile DTaP,Tdap,Td Vaccine (1 - Tdap) [facility] Start: 01-17-2010 Administration of varicella zoster vaccine Zoster (Shingles) Vaccine (2 of 3) [facility] Start: 2005 RSV Vaccine (1 - 1-dose 60+ series) RSV Vaccine (1 - 1-dose 60+ series) [facility] Start: 1995 Shingrix Vaccine (1 of 2) Shingrix Vaccine (1 of 2) [facility] Start: 1963 Adult BMI Follow Up Plan Adult BMI Follow Up Plan [facility] Start: 1963 Hepatitis C screening Hepatitis C Screening [facility] Start: 1945 Medicare Annual Wellness Visit Medicare Annual Wellness Visit [facility] End: 01-07-2025 CBC W Auto Differential panel - Blood CBC auto differential Lab Routine Essential tremor Balance problem Polyneuropathy 1 Occurrences starting 01/07/2024 until 01/07/2025 [facility] Comment on above: 1 Occurrences starting 01/07/2024 until 01/07/2025 End: 01-07-2025 Cyanocobalamin vitamin b-12 Vitamin B12 Lab Routine Balance problem Polyneuropathy 1 Occurrences starting 01/07/2024 until 01/07/2025 [facility] Comment on above: 1 Occurrences starting 01/07/2024 until 01/07/2025 End: 01-07-2025 Ferritin [Mass/volume] in Serum or Plasma Ferritin Lab Routine Polyneuropathy Abnormal level of blood mineral 1 Occurrences starting 01/07/2024 until 01/07/2025 [facility] Comment on above: 1 Occurrences starting 01/07/2024 until 01/07/2025 End: 01-07-2025 Folate [Mass/volume] in Serum or Plasma Folate Serum Lab Routine Balance problem Polyneuropathy 1 Occurrences starting 01/07/2024 until 01/07/2025 [employer] Comment on above: 1 Occurrences starting 01/07/2024 until 01/07/2025 End: 01-07-2025 Hemoglobin A1c/Hemoglobin.total in Blood Hemoglobin A1c Lab Routine Balance problem Polyneuropathy Prediabetes 1 Occurrences starting 01/07/2024 until 01/07/2025 [employer] Comment on above: 1 Occurrences starting 01/07/2024 until 01/07/2025 End: 01-07-2025 Homocysteine total Homocysteine total Lab Routine Balance problem Polyneuropathy Essential (primary) hypertension 1 Occurrences starting 01/07/2024 until 01/07/2025 [employer] Comment on above: 1 Occurrences starting 01/07/2024 until 01/07/2025 End: 01-07-2025 Immunoelectrophoresis for Therapy Monitoring Immunoelectrophoresis for Therapy Monitoring Lab Routine Balance problem Polyneuropathy 1 Occurrences starting 01/07/2024 until 01/07/2025 [employer] Comment on above: 1 Occurrences starting 01/07/2024 until 01/07/2025 End: 01-07-2025 Iron and TIBC Iron and TIBC Lab Routine Essential tremor Balance problem Polyneuropathy Abnormal level of blood mineral 1 Occurrences starting 01/07/2024 until 01/07/2025 [employer] Comment on above: 1 Occurrences starting 01/07/2024 until 01/07/2025 End: 01-07-2025 Methylenetetrahydrofolate reductase Methylenetetrahydrofolate reductase Lab Routine Balance problem Polyneuropathy 1 Occurrences starting 01/07/2024 until 01/07/2025 [employer] Comment on above: 1 Occurrences starting 01/07/2024 until 01/07/2025 End: 01-07-2025 Methylmalonic acid screen Methylmalonic acid screen [place] b Routine Balance problem Polyneuropathy 1 Occurrences starting 01/07/2024 until 01/07/2025 [employer] Work Phone: Comment on above: 1 Occurrences starting 01/07/2024 until 01/07/2025 End: 01-07-2025 Protein electrophoresis, serum Protein electrophoresis, serum Lab Routine Balance problem Polyneuropathy 1 Occurrences starting 01/07/2024 until 01/07/2025 [employer] Comment on above: 1 Occurrences starting 01/07/2024 until 01/07/2025 End: 01-07-2025 Thyroid profile includes TSH FT4 Thyroid profile includes TSH FT4 Lab Routine Balance problem Polyneuropathy Prediabetes 1 Occurrences starting 01/07/2024 until 01/07/2025 [facility] Comment on above: 1 Occurrences starting 01/07/2024 until 01/07/2025 Immunizations Immunization Date Immunization Notes Care Provider Fa [facility] 03-12-2021 COVID-19, mRNA, LNP- S, PF, 100mcg/0.5mL Dose John Johnson MD Work Phone: [facility] 03-11-2021 Moderna SARS-CoV-2 Vaccination Ria Snyder OCCUPATIONAL THER Work Phone: [facility] 02-12-2021 COVID-19, mRNA, LNP- S, PF, 100mcg/0.5mL Dose John Johnson MD Work Phone: [facility] 02-11-2021 Moderna SARS-CoV-2 Vaccination Ria Snyder OCCUPATIONAL THER Work Phone: [facility] 11-12-2020 pneumococcal conjuga te vaccine, 13 valent John Johnson MD Work Phone: [facility] 09-17-2020 influenza, high dose seasonal, preservative-free John Johnson MD Work Phone: [facility] 09-17-2020 Seasonal, quadrivale nt, recombinant, injectable influenza vaccine, preservative free John Johnson MD Work Phone: [facility] 09-17-2020 influenza virus vacc ine, unspecified formulation John Johnson MD Work Phone: [facility] 08-30-2019 Seasonal, quadrivale nt, recombinant, injectable influenza vaccine, preservative free John Johnson MD Work Phone: [facility] 08-29-2018 influenza, injectabl e, quadrivalent, preservative free John Johnson MD Work Phone: [facility] 08-22-2015 influenza, seasonal, injectable, preservative free Ria Snyder OCCUPATIONAL THER Work Phone: [facility] 08-13-2015 pneumococcal polysaccharide vaccine, 23 valent Ria Snyder OCCUPATIONAL THER Work Phone: [facility] 08-21-2011 tetanus and diphther ia toxoids, adsorbed, preservative free, for adult use (5 Lf of tetanus toxoid and 2 Lf of diphtheria toxoid) John Johnson MD Work Phone: [facility] 11-22-2009 zoster vaccine, live Blase aakash Snyder OCCUPATIONAL THER Work Phone: [facility] 11-22-2009 zoster vaccine, unspecified formulation John Johnson MD Work Phone: [facility] Payers Date Payer Category Payer Private Health Insurance 2021 Medicare [id number] 2021 Medicare [id number] 2012 Medicare [id number] 1945 Unknown [id number] 2.. 840.1.441541.3.579.2.175 1945 Unknown [id number] 2.. 840.1.061591.3.579.2.175 1945 Unknown [id number] 2.16.84 0.1.872405.3.579.2.1286 1945 Unknown [id number] 2.16. 840.1.014864.3.579.2.196 1945 Unknown [id number] 2.16. 840.1.058793.3.579.2.196 1945 Unknown [id number] 2.16. 840.1.314837.3.579.2.196 1945 Unknown [id number] 2.16. 840.1.157179.3.579.2. 1945 Unknown [id number] 2.16. 840.1.999809.3.579.2. 1945 Unknown [id number] 2.16. 840.1.861477.3.579.2. 1945 Unknown [id number] 2.16. 840.1.251822.3.579.2. 1945 Unknown [id number] 2.16.8 40.1.728111.3.579.2.1285 1945 Unknown [id number] 2.16.8 40.1.815550.3.579.2.1285 1945 Unknown [id number] 2.16.8 40.1.646871.3.579.2.1285 1945 Unknown [id number] 2.16.8 40.1.960338.3.579.2.1285 1945 Unknown [id number] 2.16.8 40.1.460227.3.579.2.1285 1945 Unknown [id number] 2.16.8 40.1.576658.3.579.2.1285 1945 Unknown [id number] 2.16.8 40.1.158184.3.579.2.1285 1945 Unknown [id number] 2.16.84 0.1.981979.3.579.2.1285 1945 Unknown [id number] 2.16.8 40.1.695837.3.579.2.1285 1945 Unknown [id number] 2.16.8 40.1.338418.3.579.2.1285 1945 Unknown [id number] 2.16.8 40.1.930902.3.579.2.1285 1945 Unknown [id number] 2.16.8 40.1.604096.3.579.2.1286 1945 Unknown [id number] 2.16.8 40.1.143113.3.579.2.1286 1945 Unknown [id number] 2.16.8 40.1.680114.3.579.2.1286 1945 Unknown [id number] 2.16.84 0.1.596286.3.579.2.1259 1945 Unknown [id number] 2.16.84 0.1.373458.3.579.2.1259 1945 Unknown [id number] 2.16.84 0.1.100972.3.579.2.1259 -08-1945 Unknown [id number] 2.16.84 0.1.254326.3.579.2.1259 -08-1945 Unknown [id number] 2.16.84 0.1.842140.3.579.2.1259 -08-1945 Unknown [id number] 2.16.84 0.1.678508.3.579.2.1259 -08-1945 Unknown [id number] 2.16.84 0.1.559777.3.579.2.1259 -08-1945 Unknown [id number] 2.16.84 0.1.437203.3.579.2.1259 -08-1945 Unknown [id number] 2.16.84 0.1.798932.3.579.2.1259 -08-1945 Unknown [id number] 2.16.84 0.1.282061.3.579.2.1259 -08-1945 Unknown [id number] 2.16.84 0.1.355679.3.579.2.1259 -08-1945 Unknown [id number] 2.16.84 0.1.031292.3.579.2.1259 -08-1945 Unknown [id number] 2.16.84 0.1.654122.3.579.2.1259 -08-1945 Unknown [id number] 2.16.84 0.1.430483.3.579.2.1259 -08194 Unknown [id number] 2.16.84 0.1.988881.3.579.2.1259 -194 Unknown [id number] 2.16.84 0.1.310972.3.579.2.1259 -194 Unknown [id number] 2.16.84 0.1.591064.3.579.2.1259 -194 Unknown [id number] 2.16.84 0.1.250679.3.579.2.1259 -08194 Unknown [id number] 2.16.84 0.1.631918.3.579.2.1259 -194 Unknown [id number] 2.16.84 0.1.248923.3.579.2.1259 -194 Unknown [id number] 2.16.84 0.1.833861.3.579.2.1259 -194 Unknown [id number] 2.16.84 0.1.776986.3.579.2.1259 -194 Unknown [id number] 2.16.84 0.1.797370.3.579.2.1259 -194 Unknown [id number] 2.16.84 0.1.088224.3.579.2.1259 -194 Unknown [id number] 2.16.840 .1.017748.3.579.2.1259 -194 Unknown [id number] 2.16.840 .1.848331.3.579.2.1259 -194 Unknown [id number] 2.16.840 .1.162442.3.579.2.1259 -194 Unknown [id number] 2.16.840 .1.602416.3.579.2.1259 -194 Unknown [id number] 2.16.840 .1.016669.3.579.2.1259 Social History Date Type Detail Facility Start: 01-27-2018 End: 11-29-2023 Tobacco smoking status NHIS Never smoked tobacco [facility] History of tobacco use Passive smoker [facility] Start: 01-27-2018 End: 11-29-2023 Tobacco use and exposure Smokeless tobacco non-user [facility] Start: 11-29-2023 End: 04-04-2024 Alcohol intake Current non-drinker of alcohol (finding) [facility] Start: 11-29-2023 End: 04-04-2024 Alcohol intake [facility] Start: 11-29-2023 End: 04-04-2024 Tobacco use panel [facility] Adolescent depressio n screening assessment 0 [facility] Start: 1945 Sex Assigned At Female [facility] Start: 05-22-2021 Gender identity Identifies as female gender (finding) [facility] Start: 05-22-2021 Sexual orientation Heterosexual (finding) [facility] Start: 12-07-2023 Alcohol intake Current drinker of alcohol (finding) [facility] Start: 05-04-2023 Alcohol Comment caffeine: occasional [facility] Start: 1945 Sex Assigned At Not on file [facility] Medical Equipment Procedure Code Equipment Code Equipment Origin al Text Equipment Identifier Dates Patch Dura 1x1in Drmtrx-[place] + Clgn Rgnrt Membr Strl - [id number] Start: 07-03-2021 Goals Date Patient Goal Desired Activity /State Personal health goal Comment on above: Formatting of this n ote might be different from the original. Evaluation of progress towards goal: safe transition from hospital to home with support of her friends/neighbors Clinical Notes 12-13-2023 to 04-04-2024 Patient InstructionsJosette Sheppard MA - 04/04/2024 11:29 AM KLEBERTRJosette wolf MA - 04/04/2024 11:29 AM Mandi Tatum MD - 04/04/2024 10:30 AM EDTPatient Instructions Note Date & Type Note Facility 04-04-2024 Instructions Anson Ennis MD - 04/04/2024 12:35 PM EDT - obtain follow up MRI brain wwo in 6 months - please follow up with your sap basis consultant (we do not think the etiology of your hearing loss is due to your meningioma) - our team will notify Dr. Bia Cao regarding these findings; we recommend investigating other etiologies of imbalance in Mrs. Ruth documented in this encounter [facility] 04-04-2024 Note HNO ID: [id number] Author: MANDI HOOVER MD Service: ? Author Type: Physician Type: Progress Notes Filed: 04/05/2024 17:50 Note Text: SECTION OF SKULL BASE SURGERY MINIMALLY INVASIVE CRANIAL BASE AND PITUITARY SURGERY PROGRAM Jessica [facility] [place], [facility] CC: Patient Care Team: Bia Cao as PCP ([facility]) Ileana Cortes MD as NI Referring [...] ([place]anni/West side preference). - follow up with sap basis consultant for hearing loss which is unrelated to [...] Patient is accompanied by her granddaughter (her service car driver) and great grand daughter). 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 The patient takes ASA 81 mg daily for cardioprotection per her PCP. The patient has been using a cane for the last 5-6 years. The patient reports that ~6 weeks ago, she walked into her garage door and fell. The patient has not seen an sap basis consultant or a vestibular therapist. Past Medical History: [...] mg (VYTORIN) 10-40 (more content not included)... [facility] 04-04-2024 Nurse Note Additional intake questions: Has the patient had fever, nausea, vomiting, diarrhea, constipation, fatigue for > 1 week? No Does the patient have a decreased appetite? No Does patient want to see a Edger Automatic? No (yes to any of above refer patient to schedulers for dietitian appointment) ) Does patient have any new or increased numbness or tingling of extremities? No Is patient interested in fertility information? No Does patient need any prescription refills? No Does patient have an advanced directive in place? Yes, no copy found in [facility] Patient referred to [facility] Electronically Signed By: Josette Sheppard MA [facility] 04-04-2024 Nurse Note Additional intake questions: Has the patient had fever, nausea, vomiting, diarrhea, constipation, fatigue for > 1 week? No Does the patient have a decreased appetite? No Does patient want to see a Edger Automatic? No (yes to any of above refer patient to schedulers for dietitian appointment) ) Does patient have any new or increased numbness or tingling of extremities? No Is patient interested in fertility information? No Does patient need any prescription refills? No Does patient have an advanced directive in place? Yes, no copy found in [facility] Patient referred to [facility] Electronically Signed By: Josette Sheppard MA documented in this encounter [facility] 04-04-2024 History of Presen t illness Narrative Images from the original note were not included. SECTION OF SKULL BASE SURGERY MINIMALLY INVASIVE CRANIAL BASE & PITUITARY SURGERY PROGRAM Jessica Caro [facility] [place], [facility] CC: Patient Care Team: Bia Cao as PCP ([facility]) Ileana Cortes MD as NI Referring [...] our skull base team advance practice providers ([place] preference). - follow up with sap basis consultant for hearing loss which is unrelated to [...] Patient is accompanied by her granddaughter (her service car driver) and great grand daughter). 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 The patient takes ASA 81 mg daily for cardioprotection per her PCP. The patient has been using a cane for the last 5-6 years. The patient reports that ~6 weeks ago, she walked into her garage door and fell. The patient has not seen an sap basis consultant or a vestibular therapist. Past Medical History: [...] Cla* Rash Egg White Swelling Says about 1964? and [...] contrast and shows a 1.2 cm R INORGANIC CHEMISTRY PROFESSOR contrast-enhancing lesion extra-axial mass arising from the right posterior petrous ridge with no significant mass effect and not abutting the right vestibular cochlear complex. documented in this encounter [facility] 03-28-2024 Telephone encounter Note Called patient to schedule an appointment. No ans/left message to call the office back. Appointment scheduled: 04/04/2024 10:30 AM (Arrive by 10:15 AM) Mandi Hoover MD [facility] RAMAN Alonso [facility] 03-28-2024 Miscellaneous Notes Called patient to schedule an appointment. No ans/left message to call the office back. Appointment scheduled: 04/04/2024 10:30 AM (Arrive by 10:15 AM) Mandi Hoover MD [facility] RAMAN Alonso Time Frame: First available Provider: Kiko Landrum Soni Referring: Ileana Cortes MD Images to be requested from [facility] Dx: Right CPA mass Patient: Angela Ruth Address: Angela Ruth [id number] [place] [address] [facility] [address] Per Triage: HISTORY OF PRESENT ILLNESS Angela [...] extracranial soft tissues are unremarkable. Vanesa Morgan APRN.SENIOR PHYSICAL THERAPIST March 28, 2024 Referral source: Ileana Cortes MD ([facility]) Reason for visit: consideration of gamma knife for 1.2 cm enhancing lesion at right cerebelloponitine angle with leading differential including vestibular schwannoma and meningioma External records: Sent with referral and pulled from [facility] Triage: Required, forwarded to [facility] by telephone encounter sent to [facility] Scheduling Triage. Financial clearance: Not required to schedule documented in this encounter [facility] 03-28-2024 Telephone encounter Note Time Frame: First available Provider: Kiko Landrum Soni Referring: Ileana Cortes MD Images to be requested from [facility] Dx: Right CPA mass Patient: Angela Ruth Address: Angela Ruth [id number] [place] [address] [place] [address] Per Triage: HISTORY OF PRESENT ILLNESS Angela [...] extracranial soft tissues are unremarkable. Vanesa Morgan APRN.SENIOR PHYSICAL THERAPIST March 28, 2024 T [facility] 03-24-2024 Telephone encounter Note Referral source: Ileana Cortes MD ([facility]) Reason for visit: consideration of gamma knife for 1.2 cm enhancing lesion at right cerebelloponitine angle with leading differential including vestibular schwannoma and meningioma External records: Sent with referral and pulled from [facility] Triage: Required, forwarded to [facility] by telephone encounter sent to [facility] Scheduling Triage. Financial clearance: Not required to schedule [facility] 02-24-2024 History of Presen t illness [...] Breast disorder 4 biopsies Bronchitis 01/01/2017 Cancer ([facility]) Basal cell Carpal tunnel syndrome Cataract Chronic [...] 07/07/2018 Performed by Lalit Leach MD at [facility] ENDOSCOPY COSMETIC SURGERY 1985 DISCECTOMY 1989 Partial L4-5 EGD 2001 EYE SURGERY 2014 FOOT SURGERY 2009 Reattachment of tendon left foot with bone graft HIP SURGERY 2003 Excision of bursa left hip HYSTERECTOMY 1983 INJECTION BLOCK EPIDURAL STEROID LUMBAR/SACRAL Left L 5,1 NR Left 12/20/2020 Performed by Shubham Clifton MD at [facility] INJECTION BLOCK NERVE MEDIAL BRANCH right C 4/5,5/6 Right 05/22/2022 Performed by Shubham Clifton MD at [facility] INJECTION BLOCK NERVE MEDIAL BRANCH right C 4/5,5/6 Right 04/17/2022 Performed by Shubham Clifton MD at [facility] CAUDAL EPIDURAL WITH CATHETER, STEROID N/A 03/07/2018 Performed by Shubham Clifton MD at [facility] LARGE JOINT BURSA: bilat hip Bilateral 12/10/2017 Performed by Shubham Clifton MD at [facility] MEDIAL BRANCH NERVE BLOCK Bilateral L 4/5, 5/1 Bilateral 06/28/2017 Performed by Shubham Clifton MD at [facility] INJECTION MEDIAL BRANCH NERVE BLOCK Right L 2/3, 3/4 Right 12/08/2019 Performed by Shubham Clifton MD at [facility] MEDIAL BRANCH NERVE BLOCK RIGHT L23 34 Right 01/19/2020 Performed by Shubham Clifton MD at [facility] INJECTION SI JOINT Bilateral 04/09/2017 Performed by Shubham Clifton MD at [facility] INJECTION SI JOINT Bilateral SI Joint Bilateral 05/31/2020 Performed by Shubham Clifton MD at [facility] INJECTION SI JOINT Left SI JOint Left 01/06/2019 Performed by Shubham Clifton MD at [facility] INJECTION SI JOINT Right SI Joint Right 06/09/2019 Performed by Shubham Clifton MD at [facility] INJECTION SPINE TRANSFORAMINAL Left L 4, 5 NR Left 09/24/2017 Performed by Shubham Clifton MD at [facility] INJECTION SPINE TRANSFORAMINAL Left L 5,1 Nroot Left 01/08/2023 Performed by Shubham Clifton MD at [facility] INJECTION SPINE TRANSFORAMINAL Right L 5,1 Nroot Right 11/27/2022 Performed by Shubham Clifton MD at [facility] INJECTION STEROID EPI 1 WITH SEDATION Left 5,1 NR Left 05/08/2019 Performed by Shubham Clifton MD at [facility] KNEE ARTHROSCOPY 2010, 2013 KNEE SURGERY 2010 2013 Arthroscopy bilateral/repair meniscus right X2, left X1 LAMINECTOMY LUMBAR FORAMENOTOMY MULTI LEVEL L1-2 RIGHT/L2-3 BILATERAL/LUMBAR DRAIN INSERTION N/A 07/03/2021 Performed by Ileana Cortes MD at [facility] LAPAROTOMY OOPHERECTOMY Bilateral 1984 LUMBAR DISCECTOMY LUMBAR FUSION 2010 L3-5 LUMBAR LAMINECTOMY MICRO LUMBAR DISCECTOMY L5-S1/ FORAMINOTOMY L5-S1 Left 01/14/2017 Performed by Ileana Cortes MD at [facility] OOPHORECTOMY 1982 OTHER SURGICAL HISTORY Knee Arthroscopy With Medial Meniscus Repair OTHER SURGICAL HISTORY Spinal Diskectomy RADIO FREQUENCY ABLATION Left L 4/5, 5/1 Left 12/02/2018 Performed by Shubham Clifton MD at [facility] RADIO FREQUENCY ABLATION Left L 4/5, 5/1 Left 07/30/2017 Performed by Shubham Clifton MD at [facility] RADIO FREQUENCY ABLATION Left SI joint Left 03/31/2019 Performed by Shubham Clifton MD at [facility] RADIO FREQUENCY ABLATION Right L2/3, 3/4 Right 03/29/2020 Performed by Shubham Clifton MD at [facility] RADIOFREQUENCY ABLATION SPINAL Left Si joint Left 05/07/2017 Performed by Shubham Clifton MD at [facility] RADIOFREQUENCY ABLATION SPINAL Right C 4/5,5/6 Right 06/26/2022 Performed by Shubham Clifton MD at [facility] RADIOFREQUENCY ABLATION SPINAL RIGHT SI JOINT Right 05/21/2017 Performed by Shubham Clifton MD at [facility] RELEASE CARPAL TUNNEL Left 11/04/2021 Performed by Ileana Cortes MD at [facility] SHOULDER SURGERY 2011 Right rotator cuff [...] mouth in the morning., Disp: , Rfl: pjffefr-rqydojfganhfe-sblxalba (EXCEDRIN MIGRAINE) 250-250-65 mg per tablet, Take 1 tablet by mouth every 6 (six) hours as needed for headaches., Disp: , Rfl: atorvastatin (LIPITOR) 40 mg tablet, Take 1 tablet (40 mg total) by mouth in the morning., Disp: , Rfl: buprenorphine (BUTRANS) 7.5 mcg/hour patch weekly, Place 1 patch on the skin once a week., Disp: , Rfl: ipjmpgofph-etbuntzqbmely-buhc (ESGIC) 50-325-40 mg per tablet, Take 1 [...] (FOSAMAX) 35 mg tablet Dose adjustment pediatric zncymmnd-dfmp-gfy (flintstones complete) tablet,chewable Duplicate Listing Total time spent was 30 minutes which did not include flrs-og-vqnk contact with the patient: Preparing to see the patient (e.g., review of tests) Obtaining and/or reviewing separately obtained history Referring and communicating with other health home care provider (not separately reported) Documenting clinical information in the electronic or other health record Independently interpreting results (not separately reported) and communicating results to the patient/family/caregiver The note was completed using EMR. Every effort was made to ensure accuracy; however, inadvertent computerized heel coverer machine operator errors may be present. CARDIOVASCULAR STUDIES: EKG: No results found. ECHO: No results found. Stress Test: No results found. Cath: No results found. Device: Other: RYAN DALLAS MD documented in this encounter [employer] 02-09-2024 Miscellaneous Notes Patient called and stated [...] Modules accepted: Orders documented in this encounter [facility] 02-09-2024 Note Addended by: Anna HAWKINS on: 02/10/2024 12:55 PM Modules accepted: Orders [facility] 02-09-2024 Telephone encounter Note Patient called and stated her bp has been elevated. She c/o Headache. 184/92, 224/95 217/93 she took an extra 50mg hydralazine as you have directed PRN and bp 146/78. Please advise going forward. [facility] 02-09-2024 Telephone encounter Note Increase hydralazine to 100 mg twice a day [facility] 02-09-2024 Telephone encounter Note I left patient a voicemail to call me back to verify the dose she is taking now of hydralazine. [facility] 02-09-2024 Telephone encounter Note I spoke to patient and she stated she is taking hydralazine 100mg daily. She is reluctant to try BID as it previously caused hypotension. Patient will try and then keep a bp log. [facility] [employer] [facility] 01-07-2024 History of Presen t illness Narrative [...] (migraines) Inderal (tremors) Gabapentin 200 mg nightly [place] PRN Occipital nerve blocks (last 03/2021) Tizanidine [...] Breast disorder 4 biopsies Bronchitis 01/01/2017 Cancer ([facility]) Basal cell Carpal tunnel syndrome Cataract [...] 07/07/2018 Performed by Lalit Leach MD at [facility] ENDOSCOPY COSMETIC SURGERY 1984 DISCECTOMY 1989 Partial L4-5 EGD 2001 EYE SURGERY 2014 FOOT SURGERY 2009 Reattachment of tendon left foot with bone graft HIP SURGERY 2004 Excision of bursa left hip HYSTERECTOMY 1984 INJECTION BLOCK EPIDURAL STEROID LUMBAR/SACRAL Left L 5,1 NR Left 12/20/2020 Performed by Shubham Clifton MD at [facility] INJECTION BLOCK NERVE MEDIAL BRANCH right C 4/5,5/6 Right 05/22/2022 Performed by Shubham Clifton MD at [facility] INJECTION BLOCK NERVE MEDIAL BRANCH right C 4/5,5/6 Right 04/17/2022 Performed by Shubham Clifton MD at [facility] INJECTION CAUDAL EPIDURAL WITH CATHETER, STEROID N/A 03/07/2018 Performed by Shubham Clifton MD at [facility] INJECTION LARGE JOINT BURSA: bilat hip Bilateral 12/10/2017 Performed by Shubham Clifton MD at [facility] INJECTION MEDIAL BRANCH NERVE BLOCK Bilateral L 4/5, 5/1 Bilateral 06/28/2017 Performed by Shubham Clifton MD at [facility] INJECTION MEDIAL BRANCH NERVE BLOCK Right L 2/3, 3/4 Right 12/08/2019 Performed by Shubham Clifton MD at [facility] MEDIAL BRANCH NERVE BLOCK RIGHT L23 34 Right 01/19/2020 Performed by Shubham Clifton MD at [facility] INJECTION SI JOINT Bilateral 04/09/2017 Performed by Shubham Clifton MD at [facility] INJECTION SI JOINT Bilateral SI Joint Bilateral 05/31/2020 Performed by Shubham Clifton MD at [facility] INJECTION SI JOINT Left SI JOint Left 01/06/2019 Performed by Shubham Clifton MD at [facility] INJECTION SI JOINT Right SI Joint Right 06/09/2019 Performed by Shubham Clifton MD at [facility] SPINE TRANSFORAMINAL Left L 4, 5 NR Left 09/24/2017 Performed by Shubham Clifton MD at [facility] INJECTION SPINE TRANSFORAMINAL Left L 5,1 Nroot Left 01/08/2023 Performed by Shubham Clifton MD at [facility] SPINE TRANSFORAMINAL Right L 5,1 Nroot Right 11/27/2022 Performed by Shubham Clifton MD at [facility] STEROID EPI 1 WITH SEDATION Left 5,1 NR Left 05/08/2019 Performed by Shubham Clifton MD at [facility] KNEE ARTHROSCOPY 2010, 2013 KNEE SURGERY 2010 2013 Arthroscopy bilateral/repair meniscus right X2, left X1 LAMINECTOMY LUMBAR FORAMENOTOMY MULTI LEVEL L1-2 RIGHT/L2-3 BILATERAL/LUMBAR DRAIN INSERTION N/A 07/03/2021 Performed by Ileana Cortes MD at [facility] LAPAROTOMY OOPHERECTOMY Bilateral 1984 LUMBAR DISCECTOMY LUMBAR FUSION 2010 L3-5 LUMBAR LAMINECTOMY MICRO LUMBAR DISCECTOMY L5-S1/ FORAMINOTOMY L5-S1 Left 01/14/2017 Performed by Ileana Cortes MD at [facility] OOPHORECTOMY 1982 OTHER SURGICAL HISTORY Knee Arthroscopy With Medial Meniscus Repair OTHER SURGICAL HISTORY Spinal Diskectomy RADIO FREQUENCY ABLATION Left L 4/5, 5/1 Left 12/02/2018 Performed by Shubham Clifton MD at [facility] RADIO FREQUENCY ABLATION Left L 4/5, /1 Left 07/30/2017 Performed by Shubham Clifton MD at [facility] RADIO FREQUENCY ABLATION Left SI joint Left 03/31/2019 Performed by Shubham Clifton MD at [facility] RADIO FREQUENCY ABLATION Right L2/3, 3/4 Right 03/29/2020 Performed by Shubham Clifton MD at [facility] RADIOFREQUENCY ABLATION SPINAL Left Si joint Left 05/07/2017 Performed by Shubham Clifton MD at [facility] RADIOFREQUENCY ABLATION SPINAL Right C 4/5,5/6 Right 06/26/2022 Performed by Shubham Clifton MD at [facility] RADIOFREQUENCY ABLATION SPINAL RIGHT SI JOINT Right 05/21/2017 Performed by Shubham Clifton MD at [facility] RELEASE CARPAL TUNNEL Left 11/04/2021 Performed by Ileana Cortes MD at [facility] SHOULDER SURGERY 2011 Right rotator cuff SKIN [...] mg total) by mouth in the morning. lpscgnj-tmjgcmgkucjoy-qoadcewm (EXCEDRIN MIGRAINE) 250-250-65 mg per tablet Take 1 tablet by mouth every 6 (six) hours as needed for headaches. atorvastatin (LIPITOR) 40 mg tablet Take 1 tablet (40 mg total) by mouth in the morning. buprenorphine (BUTRANS) 7.5 mcg/hour patch weekly Place 1 patch on the skin once a week. qfiygxiuge-oescdqdtnteno-moaq (ESGIC) 50-325-40 mg per tablet Take 1 [...] procedures Referring and communicating with other health home care provider (not separately reported) Documenting clinical information in the electronic or other health record Independently interpreting results (not separately reported) and communicating results to the patient/family/caregiver Care coordination (not separately reported) - Yoanna Dorsey DNP, APRN-CNP 01/07/24 10:53 AM CHACE Rayo 01/07/24 1053 documented in this encounter [facility] 01-07-2024 Instructions CHACE Rayo - 01/07/2024 10:30 [...] earlier if needed. documented in this encounter [facility] 12-13-2023 Miscellaneous Notes Okay to sign and send documented in this encounter [facility] 12-13-2023 Telephone encounter Note Okay to sign and send [facility] Evaluation note Diagnosis General weakness- Primary Other malaise and fatigue History of falling documented in this encounter [facility]* Diagnosis Mixed hyperlipidemia (CMS/HCC)- Primary Mixed hyperlipidemia Stress incontinence of urine documented in this encounter [facility] HealthcareEvaluation note* Diagnosis General weakness- Primary Other malaise and fatigue History of falling documented in this encounter [facility] HealthcareEvaluation note* Diagnosis General weakness- Primary Other malaise and fatigue History of falling documented in this encounter [facility] HealthcareEvaluation note* Diagnosis Migraine without aura [...] of both ears documented in this encounter [facility]* Diagnosis Essential hypertension Unspecified essential hypertension documented in this encounter [facility]* Diagnosis Essential hypertension Unspecified essential hypertension documented in this encounter [facility]* Diagnosis Essential hypertension- Primary Unspecified essential hypertension LVH (left ventricular hypertrophy) Cardiomegaly Mixed hyperlipidemia Hypotension due to drugs Other iatrogenic hypotension documented in this encounter [facility]* Diagnosis Brain mass [G93.89]- Primary Unspecified condition of brain [facility] Diagnosis Intracranial meningioma (HCC)- Primary Benign neoplasm of cerebral meninges Sensorineural hearing loss (SNHL) of right ear, unspecified hearing status on contralateral side Dizziness Dizziness and giddiness documented in this encounter [facility] note* Diagnosis Intracranial meningioma (HCC)- Primary Benign neoplasm of cerebral meninges Benign neoplasm of meninges (HCC) Benign neoplasm of cerebral meninges [facility]ructions[facility] on filedocumented in this encounterProWire[facility] SystemInstructionsNot on filedocumented in this encounterProVan [facility] SystemInstructionsNot on filedocumented in this encounterProVan [facility] SystemInstructionsNot on filedocumented in this encounterProVan [facility] System Summary Purpose Family History No Family History Records FoundNo Family History Records FoundNo Family History Records FoundNo Family History Records FoundNo Family History Records FoundNo Family History Records FoundNo Family History Records FoundNo Family History Records FoundNo Family History Records FoundNo Family History Records Found Advance Directives No Advanced Directives Records FoundDocuments on File Type Date Recorded 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 Expl 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 Durable Power of Pasteurizing Supervisor 07/16/2021 3:45 PM Living Will 07/16/2021 3:40 [...] Documents on File Type Date Recorded 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 Expl anation Durable Power of Pasteurizing Supervisor 07/16/2021 3:45 PM Living Will 07/16/2021 3:40 [...] ears Procedures Hearing Evaluation (Audiology) Yoanna Dorsey, FILLING WINDER-SENIOR PHYSICAL THERAPIST [address] [place] [address] Referral ID Status Reason Start Date Expiration Date V isits Requested Visits Authorized [id number] Pending Review 01/07/2024 01/06/2025 1 1 Specialty Diagnoses / Procedures Referred By Contac t Referred To Contact MR IMAGING Diagnoses Benign neoplasm of meninges (HCC) Procedures MRI BRAIN WO/W IVCON MRI BRAIN BRAIN STEM W/O W/CONTRAST MATERIAL Mandi Hoover MD [address] [place] [address] Mr Imaging [facility] Referral ID Status Reason Start Date Expiration Date Visits Requested Visits Authorized [id number] Pending Review Auto-Generat ed Referral 08/28/2024 06/08/2025 1 1 Additional Source Comments INFORMATION SOURCE (unrecogn ized section and content) DATE CREATED AUTHOR 05/16/2018 [facility] DATE CREATED AUTHOR AUTHOR'S ORGANIZ ATION 06/21/2019 [facility] DATE CREATED AUTHOR AUTHOR'S ORGANIZ ATION 11/13/2022 [facility] DATE CREATED AUTHOR AUTHOR'S ORGANIZ ATION 12/07/[address] [facility] dical Specialist DATE CREATED AUTHOR AUTHOR'S ORGANIZ ATION 12/04/2023 [facility] DATE CREATED AUTHOR AUTHOR'S ORGANIZ ATION 04/08/2024 [facility] DATE CREATED AUTHOR AUTHOR'S ORGANIZ ATION 05/10/2024 [facility] DATE CREATED AUTHOR AUTHOR'S ORGANIZ ATION 07/11/2024 [facility] DATE CREATED AUTHOR AUTHOR'S ORGANIZ ATION 07/15/2024 [facility] DATE CREATED AUTHOR AUTHOR'S ORGANIZ ATION 08/16/[address] [facility] dical Specialists EPIC Reason for Visit (unrecogniz ed section and content) Reason Onset Date Comments Med Refill 12/13/2023 Specialty Diagnoses / Procedures Referred By Violette staley Referred To Contact Physical Therapy Diagnoses Muscle weakness (generalized) Procedures TREATMENT Bia Cao MD [address] [place] [address] Elmer Pettit, PT [address] [place] [address] Referral ID Status Reason Start Date Expiration Date V isits Requested Visits Authorized [id number] Authorized 12/08/2023 06/05/2024 99 99 Reason Comments Med Refill Reason Comments Blood Pressure Check Reason Comments Received Outside Medical Records Externa l referral to [facility] [place] triage Nurse Triage Call Appointment Reason Comments Consult Care Teams (unrecognized sec tion and content) Motel Maid Relationship Specialty Start Date End Date Bia Cao MD [address] [facility] [place] [address] PCP - General Family Medicine 02/05/23 Motel Maid Relationship Specialty Start Date End Date Jacob Viveros PCP - [employer] 11/22/22 Bia Cao MD [address] [facility] [place] [address] PCP - General Family Medicine 04/29/23 Motel Maid Relationship Specialty Start Date End Date Jacob Viveros PCP - [employer] 11/22/22 Bia Cao MD [address] [facility] [place] [address] PCP - General Family Medicine 04/29/23 Motel Maid Relationship Specialty Start Date End Date Jacob Viveros PCP - [employer] 11/22/22 Bia Cao MD [address] [facility] [place] [address] PCP - General Family Medicine 04/29/23 Motel Maid Relationship Specialty Start Date End Date Jacob Viveros PCP - [employer] 11/22/22 Bia Cao MD [address] [place] [address] PCP - General Family Medicine 04/29/23 Motel Maid Relationship Specialty Start Date End Date Jacob Viveros PCP - [employer] 11/22/22 Bia Cao MD [address] [place] [address] PCP - General Family Medicine 04/29/23 Motel Maid Relationship Specialty Start Date End Date JackelineJacob Anny PCP - [employer] 11/22/22 Bia Cao MD [address] [place] [address] PCP - General Family Medicine 04/29/23 Motel Maid Relationship Specialty Start Date End Date Bia Cao MD [address] [place] [address] PCP - General Family Medicine 02/05/23 Motel Maid Relationship Specialty Start Date End Date Bia Cao MD [address] [place] [address] PCP - General Family Medicine 02/05/23 Motel Maid Relationship Specialty Start Date End Date Bia Cao MD [address] [place] [address] PCP - General Family Medicine 02/05/23 Motel Maid Relationship Specialty Start Date End Date Bia Cao MD [address] [place] [facility] [place] [address] PCP - General Family Medicine 02/05/23 Motel Maid Relationship Specialty Start Date End Date (Hist), No Pcp PCP - General 11/04/17 Ileana Cortes MD [address] [place] [address] NI Referring Team Neurosurgery 03/24/24 Motel Maid Relationship Specialty Start Date End Date (Hist), No Pcp PCP - General 11/04/17 Ileana Cortes MD [address] [place] [address] NI Referring Team Neurosurgery 03/24/24 Motel Maid Relationship Specialty Start Date End Date (Hist), No Pcp PCP - General 11/04/17 Ileana Cortes MD [address] [place], [place] [id number] [place] Referring Team Neurosurgery 03/24/24 Source Comments (unrecognize d section and content) In the event this informatio n is protected by the Federal Confidentiality of Alcohol and Drug Abuse Patient Records regulations: The Federal rules restrict any use of the information to criminally investigate or prosecute any alcohol or drug abuse patient.[facility] the event this information is protected by the Federal Confidentiality of Alcohol and Drug Abuse Patient Records regulations: The Federal rules restrict any use of the information to criminally investigate or prosecute any alcohol or drug abuse patient.[facility] the event this information is protected by the Federal Confidentiality of Alcohol and Drug Abuse Patient Records regulations: The Federal rules restrict any use of the information to criminally investigate or prosecute any alcohol or drug abuse patient.[facility] FOR RECORDS PERTAINING TO PATIENTS WHO ARE [...] BE BASED ON THE PRIMARY CLINICAL RECORDS. [facility] [employer] [facility]. provides no warranty or guarantee of the accuracy or completeness of information in this document.
--- NOTE | 2024-08-21 10:20 | W.PM.PROCNOT ---
Date of procedure: 08/21/24 Pre-op diagnosis: Pain due to right sacroiliitis Post-op diagnosis: same as pre-op Procedure: Procedure: Right sacroiliac joint injection Medications: Bupivacaine 0.25% 3cc, kenalog 40mg After informed consent was obtained, the patient was brought to the medical procedure unit and placed in the prone position, when a timeout was completed verifying correct patient, procedure, site, positioning, implant, and/or special equipment.? The skin overlying the area was prepped and draped in standard sterile fashion using alcohol.? A 25-gauge needle was inserted towards the right sacroiliac joint under direct fluoroscopic imaging.? Needle tip was advanced until the joint was encountered.? We instilled a total of 2 mL of solution.? Postoperatively needles were removed.? The patient tolerated the procedure well without complication.? The patient reported reduction in pain symptoms postoperatively. Anesthesia: Local Surgeon: Adelfo Hansen Pathology: none sent Condition: stable Disposition: no change
[2024-08-21] MEDS: BUPIVACAINE HCL 0.25% PF 25 MG/10 ML VIAL 2 ML INJ (10:21)
[2024-08-21] MEDS: IOHEXOL 240 MG/ML - 10 ML VIAL INJ (10:22)
[2024-08-21] MEDS: LIDOCAINE HCL 2% 400 MG/20 ML MDV INJ (10:22)
[2024-08-21] MEDS: TRIAMCINOLONE ACETONIDE 40 MG/ML VIAL INJ (10:22)
[2024-08-21 10:31] VITALS: BP 129/62; BP 146/69; PULSE 80; PULSE 82; O2SAT 92; O2SAT 94
== END 2024-08-21 10:28 | disposition home or self-care (01) ==
LOC: SURGOUT 09:24
PROVIDERS: PCP Family Medicine; Visit Provider Anesthesiology
DX: M46.1 Sacroiliitis, not elsewhere classified (principal)
CPT/HCPCS: 27096; J0665; J3301; Q9966

== ENCOUNTER 2024-09-04 12:16 | Outpatient (OUT) | payer MEDICARE, SELFPAY ==
--- OUTSIDE RECORDS SUMMARY | 2024-09-04 12:31 | XMS_ITS | CCD ---
Author Organization [facility] CliniSyde Care Team Providers Care Urinalysis Technician Name Role Phone LENNY PEDRAZA Unavailable Unavailable AUDREY HORN Unavailable Unavailable AUDREY HORN Unavailable Unavailable LENNY PEDRAZA Unavailable Unavailable NASH, BIA Mccormick Primary Care Unavailable NASH, BIA Mccormick Primary Care Unavailable LALIT LEACH Attending Unavailable NASH, BIA F Referring Unavailable NASH, BIA Mccormick Primary Care Unavailable Nash GARCIA, Bai Anny Primary Care Provider [phone] Jacob Viveros Unavailable Unavailable Nash GARCIA, Bia Anny Primary Care Provider [phone] (Hist), No Pcp Primary Care Provider UnavailIleana Paris MD Unavailable MANDI HOOVER Attending Unavailable NASH, BIA F Primary Care Unavailable JUAN TAMEZ Attending Unavailable JUAN TAMEZ Attending Unavailable JUAN TAMEZ Referring Unavailable NASH, BIA Mccormick Primary Care Unavailable JOHN JOHNSON Referring Unavailable NASH, BIA F Primary Care Unavailable SAMIRABOTIMOTHY, JOHN Referring Unavailable NASH, BIA Mccormick Primary Care Unavailable YOANNA DORSEY Referring Unavailable [...] Attending Unavailable NASH, BIA F Attending Unavailable RUBÉN FLORES Attending Unavailable NASH, BIA F Attending Unavailable NASH, BIA F Referring Unavailable NASH, BIA F Attending Unavailable NASH, BIA F Attending Unavailable WILVERELMER WILKERSON Attending Unavailable NASH, BIA F Referring Unavailable SNYDER, RIA Attending Unavailable NASH, BIA F Referring Unavailable WILVERELMER Attending Unavailable NASH, BIA F Referring Unavailable Giedraitis , Andrius Maria Elena Attending Unavailable Giedraitis , Andrius Vytautdayana Attending Unavailable Giedraitis , Andrius Vytautas Attending Unavailable Giedraitis , Andrius Vytautas Attending Unavailable Giedraitis , Andrius Vytautdayana Attending Unavailable Giedraitis , Andrius Vytautas Attending Unavailable Giedraitis , Andrius Vytautdayana Attending Unavailable Nash , Bia Anny Primary Care Provider [phone] NASH, BIA F Referring Unavailable NASH, BIA Mccormick Primary Care Unavailable MARIA C KRAMER Attending Unavailable YOANNA DORSEY Attending Unavailable NASH, BIA F Referring Unavailable NASH, BIA Mccormick Primary Care Unavailable YOANNA DORSEY Attending Unavailable NASH, BIA Mccormick Referring Unavailable NASH, BIA Mccormick Primary Care Unavailable JOHN JOHNSON Attending Unavailable NASH, BIA F Referring Unavailable NASH, BIA F Primary Care Unavailable YOANNA DORSEY Referring Unavailable NASH, BIA Mccormick Primary Care Unavailable ILEANA CORTES Attending Unavailable NASH, BIA F Referring Unavailable NASH, BIA F Primary Care Unavailable YOANNA DORSEY Attending Unavailable NASH, BIA F Referring Unavailable NASH, BIA F Primary Care Unavailable Allergies Allergy Classification Reported Allergen(s) Allergy Type Date of Onset Reaction(s) Facility Amoxicillin / Clavulanate (1 source) Amoxicillin / Clavulanate Drug Allergy 08-14-[address] [facility] Aspartame (1 source) Aspartame Drug Allergy 02-13-20 17 Other: See Comments [facility] Clavulanate (1 source) Clavulanate Drug Allergy 02-13-20 [address] [facility] egg white (chicken) allergenic extract (1 source) egg white (chicken) allergenic extract Drug Allergy 08-14-[address] [facility] Lincomycin (1 source) Lincomycin Drug Allergy 11-04-20 16 [facility] NSAIDs (1 source) oxaprozin Drug Allergy 11-04-20 16 [facility] Penicillins (antibiotic) (1 source) Penicillins Drug Allergy 11-04-20 16 [facility] (14 sources) Adhesive agent; Translations: [ADHESIVE] Propensity to adverse reactions to drug (disorder) 11-04-20 16 Other: See Comments [facility] (19 sources) Aspartame; Translations: [ASPARTAME] Drug Allergy 02-13-20 17 Other (See Comments), Unknown, Other: See Comments [facility] (10 sources) chicken allergenic extract; Translations: [POULTRY] Drug Allergy 03-02-20 23 [facility] (19 sources) Clavulanate; Translations: [CLAVULANIC ACID] Drug Allergy 02-13-20 17 Rash [facility] (10 sources) egg shell membrane; Translations: [EGGSHELL MEMBRANE] Propensity to adverse reactions to food (disorder) 11-04-20 16 [facility] (16 sources) Indomethacin; Translations: [INDOMETHACIN] Drug Allergy 05-02-20 21 Hypotension, Unknown [facility] (19 sources) Lincomycin; Translations: [LINCOMYCIN] Drug Allergy 08-14-20 11 Anaphylaxis, Rash [facility] (14 sources) Lincosamides (Antibiotic); Translations: [LINCOSAMIDES] Propensity to adverse reactions to drug (disorder) 02-13-20 17 Anaphylaxis [facility] (13 sources) oxaprozin; Translations: [OXAPROZIN] Drug Allergy 11-04-20 16 Rash [facility] (19 sources) Penicillins; Translations: [PENICILLINS] Propensity to adverse reactions to drug (disorder) 11-04-20 16 Rash [facility] (16 sources) Sulfamethoxazole / Trimethoprim; Translations: [SULFAMETHOXAZOLE-T RIMETHOPRIM] Drug Allergy 10-22-20 23 Hives [facility] (10 sources) Sulfonamides (Antibiotic); Translations: [SULFA (SULFONAMIDE ANTIBIOTICS)] Propensity to adverse reactions to drug (disorder) 11-11-20 22 Hives [facility] (14 sources) INFLUENZA VIRUS VACCINES; Translations: [INFLUENZA VIRUS VACCINES] Propensity to adverse reactions to drug (disorder) 02-13-20 17 Swelling [facility] (16 sources) OTHER; Translations: [OTHER] Propensity to adverse reactions (disorder) 02-13-20 17 Other (See Comments), Swelling [facility] (19 sources) AMOXICILLIN-POT CLAVULANATE; Translations: [AMOXICILLIN-POT CLAVULANATE] Propensity to adverse reactions to drug (disorder) 08-14-20 11 Rash [facility] (20 sources) CLEMIZOLE; Translations: [CLEMIZOLE] Propensity to adverse reactions to drug (disorder) 02-13-20 17 Rash [facility] (6 sources) Influenza Vaccines Drug Allergy 06-04-20 23 Rash [facility] (6 sources) Lincomycin Drug Allergy 12-01-19 22 Unknown [facility] (6 sources) Sulfonamides (Antibiotic) Drug Intolerance 11-11-20 22 Hives [facility] (6 sources) Eggs Or Egg-Derived Products Drug Allergy 08-14-20 11 Swelling, Unknown [facility] (6 sources) Poultry Meal Propensity to adverse reactions 03-02-20 23 [facility] (6 sources) Wound Dressing Adhesive Drug Allergy 06-04-20 23 Rash [facility] (3 sources) egg white (chicken) allergenic extract; Translations: [EGG WHITE] Drug Allergy 08-14-[address] [facility] Medications Current Medications Medication Drug Class(es) Dates Sig (Normalized) Sig (Original) acetaminophen 500 mg oral tablet (10 sources) take 2 tablets by mouth every six hours as needed for pain acetaminophen (TYLENOL EXTRA STRENGTH) 500 mg tablet Take 2 tablets (1,000 mg total) by mouth every 6 (six) hours as needed for pain. Active take 500-1000 mg by mouth every eight hours as needed acetaminophen (TYLENOL) 500 mg tablet Ta ke 500-1,000 mg by mouth three times daily as needed. 0 Active acetaminophen 250 mg / aspirin 250 mg / caffeine 65 mg oral tablet (7 sources) Platelet Aggregation Inhibitor, Nonsteroidal Anti-inflammatory Drug, Central Nervous System Stimulant, Methylxanthine take 1 tablet by mouth every six hours as needed for headache tocoeea-lpqrtizxrslgm-gfzxsejh (EXCEDRIN MIGRAINE) 250-250-65 mg per tablet Take 1 tablet by mouth every 6 (six) hours as needed for headaches. Active acetaminophen 325 mg / butalbital 50 mg / caffeine 40 mg oral tablet (11 sources) Barbiturate, Central Nervous System Stimulant, Methylxanthine St ar t: 2- 23 take 1 tablet by mouth every four hours as needed for headache rcmenzatra-muktteqgsmezp-nsnh (ESGIC) 50-325-40 mg per tablet Take 1 [...] four times daily as needed. 0 Active [id number] actuat albuterol 0.09 mg/actuat metered dose inhaler (16 sources) beta2-Adrenergic Agonist ar t: 23 take [...] wheezing or shortness of breath. PRO AIR Active alendronic acid 70 mg oral tablet (18 sources) Bisphosphonate Start: 01-25-2024 alendronate (F OSAMAX) 70 mg tablet Take 1 tablet (70 mg total) by mouth every 7 days. 01/25/2024 Active Start: 01-25-2024 take 1 tablet by margo th every week alendronate (FOSAMAX) 70 mg tablet Take 70 mg by mouth one time a week. 0 01/25/2024 Active Start: 12-13-2023 End: 01-07-2024 [...] Active amitriptyline hydrochloride 50 mg oral tablet (17 sources) Tricyclic Antidepressant Start: 11-17-2023 End: 11-16-2024 [...] Active ascorbic acid 500 mg oral tablet (13 sources) Vitamin C take 2 tablets by mo uth in the morning ascorbic acid (VITAMIN C) 500 mg tablet Take 2 tablets (1,000 mg total) by mouth in the morning. Active Ascorbic Acid (v itamin C) 1000 MG tablet 1 (one) time each day at the same time. 0 Active aspirin 81 mg delayed release oral tablet (13 sources) Platelet Aggregation Inhibitor, Nonsteroidal Anti-inflammatory Drug take 1 tablet by mouth in the morning aspirin 81 mg Take 1 tablet (81 mg total) by mouth in the morning. Active atorvastatin 40 mg oral tablet (17 sources) HMG-CoA Reductase Inhibitor Start: 2016 End: 2023 take 1 tablet by mouth in the morning atorvastatin (LIPITOR) 40 mg tablet Take 1 tablet (40 mg total) by mouth in the morning. 03/15/2022 Active 168 hr buprenorphine 0.0075 mg/hr transdermal system (13 sources) Partial Opioid Agonist Start: 2022 apply 1 dose transdermal route every week buprenorphine (BUTRANS) 7.5 mcg/hour patch weekly Place 1 patch on the skin once a week. 07/20/2023 Active calcium carbonate 1500 mg / cholecalciferol 800 unt oral tablet (16 sources) Vitamin D take 1 tablet by mouth once daily calcium carbonate-vitamin D3 600 mg(1,500mg) -800 units tablet Indications: prevention of vitamin D deficiency Take 600 mg by mouth nightly Indications: prevention of vitamin D deficiency. Active take 1 tablet by mouth once halley y calcium carbonate-vitamin D3 600 mg(1,500mg) -800 unit tab Take 1 tablet by mouth once daily. 0 Active carvedilol 25 mg oral tablet (16 sources) alpha-Adrenergic To, beta-Adrenergic To Start: 01-24-2018 take 1 tablet by mouth in the [...] Active cholecalciferol 0.025 mg ora l tablet (16 sources) Vitamin D cholecalciferol, vitamin D3, (VITAMIN D3) 1,000 units tablet Indications: vitamin D deficiency 1 tablet (1,000 Units total) before breakfast Indications: low vitamin D levels. Active cholecalciferol (Vitamin D-3) 25 MCG (1000 [...] 0 Active escitalopram 20 mg oral tablet (16 sources) Serotonin Reuptake Inhibitor Start: End: 025 take 1 tablet by mouth [...] 0 Active famotidine 20 mg oral tablet (15 sources) Histamine-2 Receptor Antagonist Start: take 1 tablet by mouth once daily famotidine (PEPCID) 20 mg tablet Take 1 tablet (20 mg total) by mouth nightly. 90 tablet 3 11/29/2023 Active fenofibrate 160 mg oral tablet (16 sources) Peroxisome Proliferator Receptor alpha Agonist Start: End: take 1 tablet by mouth in the morning fenofibrate (Triglide) 160 MG tablet Indications: Hyperlipidemia, unspecified hyperlipidemia type (CMS/HCC) Take 1 tablet (160 mg) by mouth in the morning. 100 tablet 3 10/26/2023 10/25/2024 Active ferrous sulfate 325 mg oral tablet (8 sources) Start: take 1 tablet by mouth in the morning, then take 1 tablet by mouth at mealtime, then take 1 tablet by mouth once daily in the morning, then take 1 tablet by mouth once daily at mealtime ferrous sulfate (FeroSuL) 325 (65 FE) mg tablet Take 1 tablet (325 mg total) by mouth in the morning and 1 tablet (325 mg total) in the evening. Take with meals. TAKE 1 TABLET BY MOUTH EVERY MORNING AND 1 TABLET EVERY EVENING WITH MEALS. 60 tablet 2 08/24/2024 Active Start: 05-02-2024 End: 08-24-2024 take 1 tablet by mouth once daily in the morning, then take 1 tablet by mouth once daily at mealtime FeroSuL 325 mg (65 mg iron) tablet take 1 tablet by mouth every morning and 1 tablet every evening with meals 60 tablet 2 05/02/2024 08/24/2024 Discontinued (Reorder) Start: 01-18-2024 ferrous sulfat e 325 mg (65 mg iron) tablet Take 325 mg by mouth. 0 01/18/2024 Active fexofenadine hydrochloride 180 mg oral tablet (16 sources) Histamine-1 Receptor Antagonist take 1 tablet by mouth once daily at breakfast fexofenadine (RALPH) 180 mg tablet Take 1 tablet (180 mg total) by mouth daily with breakfast. Active hydrALAZINE hydrochloride 100 mg oral tablet (15 sources) Arteriolar Vasodilator Start: 02-11-20 24 hydrALAZINE (APRESOLINE) 100 mg tablet Indications: Essential [...] mg / lisinopril 20 mg oral tablet (15 sources) Thiazide Diuretic, Angiotensin Converting Enzyme Inhibitor [...] the morning. 90 tablet 3 06/01/2023 Active Start: 06-01-2023 take 1 tablet by margo th once daily in the morning lisinopril-hydroCHLOROthiazide (ZESTORET IC) 20-12.5 mg per tablet Take 1 tablet by mouth every morning. 0 06/01/2023 Active hydroCHLOROthiazide 25 mg / losartan [...] 05/10/2024 Active L.acidoph/B.animalis /B.longum (FLORAJEN DIGESTION ORAL) (7 sources) take 1 tablet by mouth in the morning L.acidoph/B.animalis/B.longum (FLORAJEN DIGESTION ORAL) Take 1 tablet by mouth in the morning. Active take 1 tablet by mrago th in the morning L.acidoph/B.animalis/B.longum (FLORAJEN DIGESTION ORAL) Take 1 tablet by mouth in the morning. 0 Active lactobacillus acidophilus 16 mg oral capsule (6 sources) Lactobacillus (F raven Women) capsule as directed Orally 0 Active levothyroxine sodium 0.15 mg oral tablet (16 sources) l-Thyroxine Start: 06-14-2024 levothyroxine (SYNTHROID, LEVOTHROID) 150 MCG tablet Indications: Hypothyroidism, unspecified type 6 days a week 90 tablet 1 06/14/2024 Active Start: 01-21-2018 levothyroxine (SYNTHROID) 150 mcg tablet 1 tablet once daily. 0 01/21/2018 Active Magnesium (13 sources) take 2 tablets by mo uth in the morning magnesium 250 mg tablet Indications: for migraine prevention Take 2 tablets (500 mg total) by mouth in the morning. Indications: for migraine prevention. At supper time. Active take 500 mg by mouth in the morn ing MAGNESIUM PO Take 500 mg by mouth [...] three times daily as needed. 0 Active methocarbamol 500 mg oral tablet (2 sources) Muscle Relaxant Start: methocarbamoL (ROBAXIN) 500 mg tablet Take 2 tablets (1,000 mg total) by mouth. 04/19/2024 Active metoclopramide 10 mg oral tablet (3 [...] omeprazole 40 mg delayed release oral capsule (16 sources) Proton Pump Inhibitor Start: 024 take 1 capsule by mouth in the morning omeprazole (PriLOSEC) 40 mg capsule Indications: Gastroesophageal reflux disease, unspecified whether esophagitis present Take 1 capsule (40 mg total) by mouth in the morning. 180 capsule 3 11/29/2023 Active Start: 12-02-2016 omeprazole (SD ILOSEC) 20 mg capsule 20 mg once daily. 0 12/02/2016 Active 24 hr oxybutynin chloride 10 mg extended release oral tablet (16 sources) Cholinergic Muscarinic Antagonist Start: 11-21-2020 take 1 tablet by mouth once daily at breakfast oxybutynin XL (DITROPAN-XL) 10 mg 24 hr tablet Take 1 tablet (10 mg total) by mouth daily with breakfast. 11/21/2020 Active Start: 11-21-2020 End: 01-03-2024 take 1 tablet by mouth every twenty-four hours oxybutynin ER (DITROPAN XL) 10 mg 24 hr tablet Take 10 mg by mouth. 0 11/21/2020 Active therapeutic multivitamin (THERA VITAMIN) tablet (2 sources) therapeutic mult ivitamin (THERA VITAMIN) tablet Take 1 tablet by mouth. 0 Active therapeutic multivitamin (THERAGRAN) tablet (7 sources) take 1 tablet by margo th once daily at dinner therapeutic multivitamin (THERAGRAN) tablet Take 1 tablet by mouth daily with dinner. Active take 1 tablet by margo th once daily at dinner therapeutic multivitamin (THERAGRAN) tab let Take 1 tablet by mouth daily with dinner. 0 Active tiZANidine 4 mg oral tablet (12 sources) Central alpha-2 Adrenergic Agonist Start: 01-07-2024 tiZANidine (ZANAFLEX ) 4 mg tablet Indications: Bilateral occipital neuralgia [...] 12/21/2017 Active ubrogepant 100 mg oral tablet (18 sources) Start: 01-07-2024 End: 02-24-2024 take 1 [...] Active vitamin b12 1 mg sublingual tablet (5 sources) Vitamin B12 Start: 01-18-2024 take 1 tablet under the tongue in the morning cyanocobalamin (VITAMIN B12) 1,000 mcg tablet, sublingual Place 1 tablet (1,000 mcg total) under the tongue in the morning. 30 tablet 11 01/18/2024 Active zafirlukast 20 mg oral tablet (16 sources) Leukotriene Receptor Antagonist Start: 01-07-2018 End: 12-14-2024 take 1 tablet by mouth in the morning, then take 1 tablet by mouth at bedtime zafirlukast (ACCOLATE) 20 mg tablet Take 1 tablet (20 mg total) by mouth in the morning and 1 tablet (20 mg total) before bedtime. 10/18/2021 Active Completed/Discontinued Medications Medication Drug Class(es) [...] by mouth. 0 04/23/2023 01/07/2024 Discontinued pediatric oihusrjg-xshb-kc n (flintstones complete) tablet,chewable (3 sources) Start: 01-18-2024 End: 02-24-2024 pediatric udtardnb-ugvl-zpo (flintstones complete) tablet,chewable Chew 1 tablet and swallow in the morning. 90 tablet 3 01/18/2024 02/24/2024 Discontinued (Duplicate Listing) Start: 01-18-2024 pediatric mult riyp-lnpp-zyp (flintstones complete) tablet,chewable Chew 1 tablet and [...] Complications of surgical procedures or medical care (20 sources) Drug-induced hypotension; Translations: [Hypotension due to drugs] Onset: 1 05-23-2021 Episodic Conditions associated with dizziness or vertigo (1 source) Dizziness; Translations: [Dizziness and giddiness] 04-05-2024 Episodic Conduction disorders (6 sources) First degree atrioventricular block; Translations: [Atrioventricular block, first degree] Onset: 1 06-04-2023 Chronic Disorders of lipid metabolism (20 sources) Hyperlipidemia; Translations: [Other hyperlipidemia] Onset: 5 10-26-2017 Chronic E Codes: Fall (1 source) Fall Onset: 4 Esophageal disorders (14 sources) Gastro-esophageal reflux disease without esophagitis; Translations: [Gastroesophageal reflux disease without esophagitis] Onset: 1 09-15-2021 Chronic Essential hypertension (19 sources) Essential hypertension; Translations: [Essential (primary) hypertension] Onset: 3 03-02-2023 Chronic Fracture of upper limb (1 source) Displaced fracture of proximal phalanx of left little finger, subsequent encounter for fracture with routine healing; Translations: [Displaced fracture of proximal phalanx of left little finger, subsequent encounter for fracture with routine healing] Onset: 2 Episodic Genitourinary symptoms and ill-defined conditions (10 sources) Mixed urinary incontinence; Translations: [Mixed incontinence] Onset: 0 06-04-2023 Chronic Genitourinary symptoms and ill-defined conditions (1 source) Urinary frequency Onset: 4 Episodic Headache; including migraine (16 sources) Migraine without aura, not refractory ; Translations: [Migraine without aura, not intractable, without status migrainosus] Onset: 9 Resolved: 3 12-12-2018 Chronic Miscellaneous mental health disorders (15 sources) Psychophysiologic insomnia; Translations: [Psychophysiologic insomnia] Onset: 9 12-12-2018 Chronic Mood disorders (20 sources) Depressive disorder; Translations: [Other specified depressive episodes] Onset: 7 02-12-2017 Chronic Nausea and vomiting (7 sources) Postoperative nausea and vomiting; Translations: [Nausea [...] 06-04-2023 Chronic Other and ill-defined heart disease (7 sources) Diastolic dysfunction; Translations: [Other ill-defined heart diseases] Onset: 1 05-23-2021 Chronic Other and ill-defined heart disease (8 sources) Left ventricular hypertrophy; Translations: [Cardiomegaly] Onset: [...] bilateral] Onset: 4 Chronic Other gastrointestinal disorders (13 sources) Chronic idiopathic constipation; Translations: [Chronic idiopathic constipation] Onset: 9 07-10-2019 Chronic Other hereditary and degenerative nervous system conditions (14 sources) Essential tremor; Translations: [Essential tremor] Onset: 9 12-12-2018 Chronic Other hereditary and degenerative nervous system conditions (2 sources) Essential tremor; Translations: [Essential tremor] Onset: 9 Chronic Other injuries and conditions due to external causes (9 sources) History of fall; Translations: [History of falling] Onset: 3 12-23-2023 Episodic Other nervous system disorders (7 sources) Chronic pain syndrome; Translations: [Chronic pain syndrome] Onset: 8 2018 Chronic Other nervous system disorders (7 sources) Carpal tunnel syndrome; Translations: [Carpal tunnel [...] 1 Resolved: 3 01-07-2017 Chronic Thyroid disorders (15 sources) Acquired hypothyroidism; Translations: [Hypothyroidism, unspecified] Onset: 9 03-02-2023 Chronic Unclassified (1 source) EMS Onset: 4 Past or Other Problems Problem Classification Problem Date Documented Da te Episodic/Chronic Acute and unspecified renal failure (7 sources) Acute injury of kidney; Translations: [Acute kidney failure, unspecified] Onset: 03-02-2023 03-02-2023 Episodic Acute cerebrovascular disease (7 sources) Hematoma of subdural space of neuraxis; Translations: [SDH (subdural hematoma)] Onset: 01-04-2018 Resolved: 07-01-2021 07-01-2021 Chronic Adjustment disorders (6 sources) Adjustment disorder with anxious mood; Translations: [Adjustment disorder with anxiety] Onset: 05-04-2023 Resolved: 10-24-2023 10-24-2023 Chronic Calculus of urinary tract (13 sources) Kidney stone; Translations: [Calculus of kidney] Onset: 03-02-2023 03-02-2023 Episodic Diabetes mellitus without complication (3 sources) Prediabetes; Translations: [Prediabetes] Onset: 01-07-2024 01-07-2024 Episodic E Codes: Fall (1 source) Unspecified fall, initial encounter; Translations: [Unspecified fall, initial encounter] Onset: 02-11-2024 Episodic Malaise and fatigue (11 sources) Asthenia; Translations: [Weakness] Onset: 11-04-2016 11-04-2016 Episodic Mood disorders (13 sources) Mood disorders Onset: 04-23-2023 Resolved: 07-13-2024 04-23-2023 Other circulatory disease (7 sources) Low blood pressure; Translations: [Hypotension, unspecified] Onset: 03-02-2023 03-02-2023 Episodic Other connective tissue disease (13 sources) Bilateral trochanteric bursitis; Translations: [Trochanteric bursitis, right hip] Onset: 11-03-2017 11-03-2017 Episodic Other connective tissue disease (7 sources) Impingement syndrome of right shoulder region; Translations: [Impingement syndrome of right shoulder] Onset: 08-14-2011 06-22-2018 Episodic Other connective tissue disease (8 sources) Muscle spasm of cervical muscle of neck; Translations: [Other muscle spasm] Onset: 05-05-2019 05-05-2019 Episodic Other connective tissue disease (7 sources) Nocturnal muscle spasm ; Translations: [Other [...] Onset: 02-11-2024 Episodic Other lower respiratory disease (7 sources) Dyspnea; Translations: [Shortness of breath] Onset: 11-06-2019 11-06-2019 Episodic Other lower respiratory disease (1 source) Solitary pulmonary nodule; Translations: [Solitary pulmonary nodule] Onset: 02-11-2024 Episodic Other nervous system disorders (8 sources) Impairment of balance; Translations: [Other abnormalities of gait and mobility] Onset: 06-12-2019 06-12-2019 Episodic Other nervous system disorders (2 sources) Other abnormalities of gait and mobility; Translations: [Other abnormalities of gait and mobility] Onset: 06-12-2019 Episodic Other non-traumatic joint disorders (14 sources) Hip pain; Translations: [Pain in right hip] Onset: 10-13-2017 11-03-2017 Episodic Other screening for suspected conditions (not mental disorders or infectious disease) (4 sources) Abnormal level of blood mineral; Translations: [Abnormal level of blood mineral] Onset: 01-07-2024 01-07-2024 Episodic Other upper respiratory disease (7 sources) Chronic hoarseness; Translations: [Dysphonia] Onset: 07-24-2020 07-24-2020 Episodic Residual codes; unclassified (1 source) Pain, unspecified; Translations: [Pain, unspecified] Onset: 03-16-2024 Episodic Screening and history of mental health and substance abuse codes (13 sources) H/O: depression; Translations: [Personal history of other mental and behavioral disorders] Onset: 2018 2018 Episodic Spondylosis; intervertebral disc disorders; other back problems (20 sources) Spinal stenosis of lumbar region; Translations: [Spinal stenosis, lumbar region without neurogenic claudication] Onset: 08-14-2011 Resolved: 10-24-2023 12-22-2022 Episodic Results Test Name Value Interpretation Reference Range Facility Measure post void residualon 08-29-2024 Volume 56 mL [facility] POCT Urinalysis Auto, W/O Mi croscopyon 08-29-2024 External Poct Urine Blood Negative [facility] External Poct Urine Glucose Negative [facility] External Poct Urine Ketones Negative [facility] External Poct Urine Leukocyte Esterase Negative [facility] External Poct Urine Nitrite Negative [facility] External Poct Urine Ph 7.0 Pr [facility] External Poct Urine Protein Negative [facility] CALCIUMon 07-10-2024 Calcium [Mass/Vol] 9.5 mg/dL Normal 8.5-10.5 [facility] Comment on above: Performed By: #### 1 3965-9, CBCA, FEPR, THYR, 2275-, 2132-07, 8, IMEL, SPE #### [facility] ([id number]) [address] [place] [address], [facility] [address] [place] [address] #### MTHFRS #### [facility] ([id number]) [address] [place] [address] THYROID PROFILEon 07-10-2024 Free T4 [Mass/Vol] 1.24 ng/dL Normal 0.61-1.60 [facility] Comment on above: Performed By: #### 1 3965-9, CBCA, FEPR, THYR, 2275-, 2132-07, 8, IMEL, SPE #### [facility] ([id number]) [address] [place] [address], [address] [place] [address] #### MTHFRS #### [facility] ([id number]) [address] [place] [address] 72108 TSH 1.37 uIU/mL Normal 0.49-4.67 [facility] Comment on above: Performed By: #### 1 3965-9, CBCA, FEPR, THYR, 2275-4, 2132-07, 2284-06, JOSHUA GONZALEZ #### [facility] ([id number]) [address], [address] [place] [address] #### MTHFRS #### [facility] ([id number]) [address] [place] [address] 76568 Vitamin D+Metabolites [Mass/ Vol]on 07-10-2024 VITAMIN D 25 HYD TOT 78.8 ng/mL Normal 30-100 [facility] Comment on above: Result Comment: Vitamin D status 25 [place] Vitamin D Deficiency <20 ng/mL Insufficiency 20-29 ng/mL Sufficiency 30-100 ng/mL Toxicity >100 ng/mL NOTE: A pediatric reference range has not been established by the slot operations director of this kit. The [employer] [employer] recommends a Vitamin D level of = or >20ng/mL in infants and children. Performed By: #### 1 3965-9, CBCA, FEPR, THYR, 2276-4, 2132-07, 2284-06, JOSHUA GONZALEZ #### [facility] ([id number]) [address], [address] [place] [address] #### MTHFRS #### [facility] ([id number]) [address] [place] [address] 19212 XR THORACIC SPINE 3 VIEWSon 07-10-2024 XR [...] report is generated using voice recognition reporting ([employer]). On occasion TORCH.shcribe erroneously drops words from the report or replaces the spoken word with similar sounding words. Please call with any questions/concerns regarding this report.* Dictated and transcribed 07/11/2024/tm This report has been electronically signed and approved by the interpreting radiologist. Electronically Signed Shubham Almodovar II, M.D. 2024-07-11 10:01:04 Normal Not Available CNOVon 04-04-2024 CNOV Office Visit (NSCAMN ) -- ANGELA RUTH ([id number]) 1945 F Date Time Provider Department 04/04/24 [...] [facility] [place], [facility] CC: Patient Care Team: Bia Cao as PCP ([facility]) Ileana Cortes MD as NI Referring Team [...] ([place] side preference). - follow up with projection engineer for hearing loss which is unrelated to [...] Patient is accompanied by her granddaughter (her courier delivery driver) and great grand daughter). 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 The patient takes ASA 81 mg daily for cardioprotection per her PCP. The patient has been using a cane for the last 5-6 years. The patient reports that ~6 weeks ago, she walked into her garage door and fell. The patient has not seen an projection engineer or a vestibular therapist. Past Medical History: [...] Units once (more content not included)... Normal [facility] 03-24-2024 [facility] Telephone (NIQ) -- ANGELA RUTH ([id number]) 1945 F Date Time Provider Department 03/24/24 NEUROLOGY PROVIDER NI During your visit today, we recorded the following information about you: Fletcher Shelli 03/24/2024 5:01 PM Signed Referral source: Ileana Cortes MD ([facility]) Reason for visit: consideration of gamma knife for 1.2 cm enhancing lesion at right cerebelloponitine angle with leading differential including vestibular schwannoma and meningioma External records: Sent with referral and pulled from [facility] Triage: Required, forwarded to [facility] by telephone encounter sent to [facility] Scheduling Triage. Financial clearance: Not required to schedule Vanesa Morgan APRN.FOREST FI[employer] FIGHTERS DISPATCHER 03/28/2024 10:00 AM Signed Time Frame: First available Provider: Kiko Landrum Soni Referring: Ielana Cortes MD Images to be requested from [facility] Dx: Right CPA mass Patient: Angela Ruth Address: Angela Ruth [id number] [place] [address] [place] [address] Per Triage: HISTORY OF PRESENT ILLNESS Angela [...] extracranial soft tissues are unremarkable. Vanesa Morgan APRN.FOREST FIRE FIGHTERS DISPATCHER March 28, 2024 Etelvina Trujillo 03/28/2024 10:12 AM Signed Called patient to schedule an appointment. No ans/left message to call the office back. Appointment scheduled: 04/04/2024 10:30 AM (Arrive by 10:15 AM) Mandi Hoover MD [facility] RAMAN Alonso Janette 04/06/2024 10:40 AM Addendum Imaging requested from [employer] [facility]. DOS requested: MRI 03/02/2024 CT Scan 02/11 2024 AND 03/09/2023, 02/11/2024. 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 (REFER (more content not included)... Normal [facility] MR BRAIN W AND WO CONTRAST ( [...] IS VERY IMPORTANT TO YOUR HEALTH. THE [employer] GUIDELINES RECOMMEND THAT WOMEN 40 [...] BASOPHIL 0.0 X10E9/L Normal 0.0-0.2 [facility] Comment on above: Performed By: #### 1 3965-9, CBCA, FEPR, THYR, 2276-02, 2132-07, 2284-06, JOSHUA GONZALEZ #### [facility] ([id number]) [address] [facility], [address] [place] [address] #### MTHFRS #### [facility] ([id number]) [address] [place] [address], [place] [address] ABSOLUTE NEUTROPHIL 3.0 X10E9/L Normal 1.5-6.6 [facility] Comment on above: Performed By: #### 1 3965-9, CBCA, FEPR, THYR, 2276-02, 2132-07, 4-8, IMEL, SPE #### [facility] ([id number]) [address], [address] [place] [address] #### MTHFRS #### [facility] ([id number]) [address] [place] [address] 87081 Basophils/100 WBC (Bld) 0.9 % Normal [facility] Comment on above: Performed By: #### 1 3965-9, CBCA, FEPR, THYR, 6-4, 2132-07, 2283-8, IMEL, SPE #### [facility] ([id number]) [address] [facility], [address] [place] [address] #### MTHFRS #### [facility] ([id number]) [address] [place] [address] 86328 Eosinophils (Bld) [#/Vol] 0.1 10*3/uL Normal 0.0-0.4 [facility] Comment on above: Performed By: #### 1 3965-9, CBCA, FEPR, THYR, 2275-, 2132-07, 2284-06, IMEL, SPE #### [facility] ([id number]) [address], [address] [place] [address] #### MTHFRS #### [facility] ([id number]) [address] [place] [address] 11631 Eosinophils/100 WBC (Bld) 1.8 % Normal [facility] Comment on above: Performed By: #### 1 3965-9, CBCA, FEPR, THYR, 2275-, 2132-07, 8, IMEL, SPE #### [facility] ([id number]) [address], [address] [place] [address] #### MTHFRS #### [facility] ([id number]) [address] [place] [address] 86215 Erythrocyte distribution width (RBC) [Ratio] 15.1 % High 11.5-15.0 [facility] Comment on above: Performed By: #### 1 3965-9, CBCA, FEPR, THYR, 2276-4, 2-9, 2284-8, IMEL, SPE #### [facility] ([id number]) [address], [address] [place] [address] #### MTHFRS #### [facility] ([id number]) [address] [place] [address] 99301 Hematocrit (Bld) [Volume fraction] 39.6 % Normal 35-47 [facility] Comment on above: Performed By: #### 1 3965-9, CBCA, FEPR, THYR, 6-4, 2-9, 4-8, IMEL, SPE #### [facility] ([id number]) [address], [address] [place] [address] #### MTHFRS #### [facility] ([id number]) [address] [place] [address] 42698 Hemoglobin (Bld) [Mass/Vol] 13.5 g/dL Normal 11.7-15.5 [facility] Comment on above: Performed By: #### 1 3965-9, CBCA, FEPR, THYR, 6-4, 2131-9, 4-8, IMEL, SPE #### [facility] ([id number]) [address], [address] [place] [address] #### MTHFRS #### [facility] ([id number]) [address] [place] [address] 38027 Lymphocytes (Bld) [#/Vol] 1.5 10*3/uL Normal 1.0-3.5 [facility] Comment on above: Performed By: #### 1 3965-9, CBCA, FEPR, THYR, 2276-4, 2132-9, 2284-8, IMEL, SPE #### [facility] ([id number]) [address], [address] [place] [address] #### MTHFRS #### [facility] ([id number]) [address] [place] [address] 71059 Lymphocytes/100 WBC (Bld) 28.5 % Normal [facility] Comment on above: Performed By: #### 1 3965-9, CBCA, FEPR, THYR, 2276-4, 2-9, 2284-8, IMEL, SPE #### [facility] ([id number]) [address], [address] [place] [address] #### MTHFRS #### [facility] ([id number]) [address] [place] [address] 01460 MCH (RBC) [Entitic mass] 29.0 pg Normal 27-34 [facility] Comment on above: Performed By: #### 1 3965-9, CBCA, FEPR, THYR, 6-4, 2131-9, 4-8, IMEL, SPE #### [facility] ([id number]) [address], [address] [place] [address] #### MTHFRS #### [facility] ([id number]) [address] [place] [address] 74473 MCHC (RBC) [Mass/Vol] 34.0 g/dL Normal 32-36 [facility] Comment on above: Performed By: #### 1 3965-9, CBCA, FEPR, THYR, 2276-4, 2-9, 4-8, IMEL, SPE #### [facility] ([id number]) [address], [address] [place] [address] #### MTHFRS #### [facility] ([id number]) [address] [place] [address] MCV (RBC) [Entitic vol] 85 fL Normal 80-100 [facility] Comment on above: Performed By: #### 1 3965-9, CBCA, FEPR, THYR, 6-4, 2-9, 4-8, IMEL, SPE #### [facility] ([id number]) [address], [address] [place] [address] #### MTHFRS #### [facility] ([id number]) [address] [place] [address] 20864 Monocytes (Bld) [#/Vol] 0.5 10*3/uL Normal 0-0.9 [facility] Comment on above: Performed By: #### 1 3965-9, CBCA, FEPR, THYR, 6-4, 2131-9, 8, IMEL, SPE #### [facility] ([id number]) [address], [address] [place] [address] #### MTHFRS #### [facility] ([id number]) [address] [place] [address] 45902 Monocytes/100 WBC (Bld) 10.3 % Normal [facility] Comment on above: Performed By: #### 1 3965-9, CBCA, FEPR, THYR, 6-4, 9, 8, IMEL, SPE #### [facility] ([id number]) [address], [address] [place] [address] #### MTHFRS #### [facility] ([id number]) [address] [place] [address] 34879 Neutrophils/100 WBC (Bld) 58.5 % Normal [facility] Comment on above: Performed By: #### 1 3965-9, CBCA, FEPR, THYR, 2276-4, 2131-9, 2284-8, IMEL, SPE #### [facility] ([id number]) [address], [address] [place] [address] #### MTHFRS #### [facility] ([id number]) [address] [place] [address] 39936 Platelet mean volume (Bld) [Entitic vol] 9.2 fL Normal 7-12 [facility] Comment on above: Performed By: #### 1 3965-9, CBCA, FEPR, THYR, 2276-4, 2131-9, 2284-8, IMEL, SPE #### [facility] ([id number]) [address], [address] [place] [address] #### MTHFRS #### [facility] ([id number]) [address] [place] [address] 91266 Platelets (Bld) [#/Vol] 176 10*3/uL Normal 150-450 [facility] Comment on above: Performed By: #### 1 3965-9, CBCA, FEPR, THYR, 6-4, 2131-9, 4-8, IMEL, SPE #### [facility] ([id number]) [address], [address] [place] [address] #### MTHFRS #### [facility] ([id number]) [address] [place] [address] 08516 RBC COUNT 4.65 X10E12/L Normal 3.80-5.20 [facility] Comment on above: Performed By: #### 1 3965-9, CBCA, FEPR, THYR, 2276-4, 2131-9, 2284-8, IMEL, SPE #### [facility] ([id number]) [address], [address] [place] [address] #### MTHFRS #### [facility] ([id number]) [address] [place] [address] 41118 WBC (Bld) [#/Vol] 5.2 10*3/uL Normal 4.0-11.0 [facility] Comment on above: Performed By: #### 1 3965-9, CBCA, FEPR, THYR, 2276-4, 2132-9, 2284-8, IMEL, SPE #### [facility] ([id number]) [address] [place] [address], [address] [place] [address] #### MTHFRS #### [facility] ([id number]) [address] [place] [address] 61912 COMPREHENSIVE METABOLIC PANE Gadiel 02-11-2024 Albumin [Mass/Vol] 4.1 g/dL Normal 3.2-5.3 [facility] Comment on above: Performed By: #### 1 3965-9, CBCA, FEPR, THYR, 2276-4, 2132-9, 2284-8, IMEL, SPE #### [facility] ([id number]) [address] [place] [address], [address] [place] [address] #### MTHFRS #### [facility] ([id number]) [address] [place] [address] 58512 ALP [Catalytic activity/Vol] 42 U/L Normal 39-130 [facility] Comment on above: Performed By: #### 1 3965-9, CBCA, FEPR, THYR, 2276-4, 2132-9, 2284-8, IMEL, SPE #### [facility] ([id number]) [address] [place] [address], [address] [place] [address] #### MTHFRS #### [facility] ([id number]) [address] [place] [address] 05256 ALT [Catalytic activity/Vol] 18 U/L Normal 0-31 [facility] Comment on above: Performed By: #### 1 3965-9, CBCA, FEPR, THYR, 2276-4, 2131-9, 4-8, IMEL, SPE #### [facility] ([id number]) [address], [address] [place] [address] #### MTHFRS #### [facility] ([id number]) [address] [place] [address] 15727 Anion gap [Moles/Vol] 7 mmol/L Normal 5-15 [facility] Comment on above: Performed By: #### 1 3965-9, CBCA, FEPR, THYR, 6-4, 2131-9, 2283-8, IMEL, SPE #### [facility] ([id number]) [address], [address] [place] [address] #### MTHFRS #### [facility] ([id number]) [address] [place] [address] 18748 AST [Catalytic activity/Vol] 27 U/L Normal 0-41 [facility] Comment on above: Performed By: #### 1 3965-9, CBCA, FEPR, THYR, 6-4, 2131-9, 2283-8, IMEL, SPE #### [facility] ([id number]) [address], [address] [place] [address] #### MTHFRS #### [facility] ([id number]) [address] [place] [address] 41997 Bilirubin [Mass/Vol] 0.5 mg/dL Normal 0.3-1.2 [facility] Comment on above: Performed By: #### 1 3965-9, CBCA, FEPR, THYR, 2276-4, 2131-9, 4-8, IMEL, SPE #### [facility] ([id number]) [address], [address] [place] [address] #### MTHFRS #### [facility] ([id number]) [address] [place] [address] 25644 Calcium [Mass/Vol] 9.4 mg/dL Normal 8.5-10.5 [facility] Comment on above: Performed By: #### 1 3965-9, CBCA, FEPR, THYR, 2276-4, 2132-9, 2284-8, IMEL, SPE #### [facility] ([id number]) [address] [place] [address] #### MTHFRS #### [facility] ([id number]) [address] [place] [address] 38357 Chloride [Moles/Vol] 104 mmol/L Normal 98-109 [facility] Comment on above: Performed By: #### 1 3965-9, CBCA, FEPR, THYR, 6-4, 2131-9, 2284-8, IMEL, SPE #### [facility] ([id number]) [address] [facility] [address], [address] [place] [address] #### MTHFRS #### [facility] ([id number]) [address] [place] [address] 67556 CO2 [Moles/Vol] 25 mmol/L Normal 22-32 [facility] Comment on above: Performed By: #### 1 3965-9, CBCA, FEPR, THYR, 2276-4, 2-9, 4-8, IMEL, SPE #### [facility] ([id number]) [address] [facility] [address], [address] [place] [address] #### MTHFRS #### [facility] ([id number]) [address] [place] [address] 10982 Creatinine [Mass/Vol] 1.01 mg/dL High 0.40-1.00 [facility] Comment on above: Result Comment: METH OD TRACEABLE TO IDMS STANDARD Performed By: #### 1 3965-9, CBCA, FEPR, THYR, 6-4, 2132-07, 8, IMEL, SPE #### [facility] ([id number]) [address], [address] [place] [address] #### MTHFRS #### [facility] ([id number]) [address] [place] [address] 91238 GFR/1.73 sq M.predicted among non-blacks MDRD (S/P/Bld) [Vol rate/Area] 57 mL/min/{1.73_m2} Low >59 [facility] Comment on above: Result Comment: Reported eGFR is based on the CKD-EPI 2020 equation that does not use a race coefficient. Performed By: #### 1 3965-9, CBCA, FEPR, THYR, 2276-02, 2132-07, 2284-06, IMEL, SPE #### [facility] ([id number]) [address], [address] [place] [address] #### MTHFRS #### [facility] ([id number]) [address] [place] [address] 65038 Glucose [Mass/Vol] 114 mg/dL High 65-99 [facility] Comment on above: Performed By: #### 1 3965-9, CBCA, FEPR, THYR, 2275-, 2132-07, 2284-06, IMEL, SPE #### [facility] ([id number]) [address] [place] [address] #### MTHFRS #### [facility] ([id number]) [address] [place] [address] 08792 Potassium [Moles/Vol] 4.2 mmol/L Normal 3.5-5.0 [facility] Comment on above: Performed By: #### 1 3965-9, CBCA, FEPR, THYR, 2276-4, 2131-9, 2284-8, IMEL, SPE #### [facility] ([id number]) [address], [address] [place] [address] #### MTHFRS #### [facility] ([id number]) [address] [place] [address] 63247 Protein [Mass/Vol] 7.2 g/dL Normal 6.0-8.0 [facility] Comment on above: Performed By: #### 1 3965-9, CBCA, FEPR, THYR, 2276-4, 2131-9, 4-8, IMEL, SPE #### [facility] ([id number]) [address], [address] [place] [address] #### MTHFRS #### [facility] ([id number]) [address] [place] [address] 32787 Sodium [Moles/Vol] 136 mmol/L Normal 134-146 [facility] Comment on above: Performed By: #### 1 3965-9, CBCA, FEPR, THYR, 6-4, 2131-9, 2283-8, IMEL, SPE #### [facility] ([id number]) [address], [address] [place] [address] #### MTHFRS #### [facility] ([id number]) [address] [place] [address] 53680 Urea nitrogen [Mass/Vol] 22 mg/dL Normal 5-27 [facility] Comment on above: Performed By: #### 1 3965-9, CBCA, FEPR, THYR, 6-4, 2131-9, 4-8, IMEL, SPE #### [facility] ([id number]) [address], [address] [place] [address] #### MTHFRS #### [facility] ([id number]) [address] [facility] [place] [address] CT ABDOMEN AND PELVIS W CONT on [...] Mooney MD on 02/11/2024 2:04 PM Normal [facility] CT BRAIN WO CONTon CT BRAIN [...] Dharmesh Mittal on 02/11/2024 1:52 PM Normal [facility] CT CERVICAL SPINE WO CONTon 02-11-2024 CT [...] Davis DO on 02/11/2024 1:52 PM Normal [facility] CT CHEST W CONTon 02-11-2024 CT CHEST [...] Ann MD on 02/11/2024 2:19 PM Normal [facility] LIPASEon 02-11-2024 Lipase [Catalytic activity/Vol] 38 U/L Normal 17-40 [facility] Comment on above: Performed By: #### 1 3965-9, CBCA, FEPR, THYR, 2276-4, 2132-9, 2284-8, IMAMANDA, JOSHUA #### [facility] ([id number]) [address] [address], [address] [place] [address] #### MTHFRS #### [facility] ([id number]) [address] [place] [address] CBC AND AUTO DIFFon 01-11- 24 ABSOLUTE BASOPHIL 0.1 X10E9/L Normal 0.0-0.2 [facility] Comment on above: Performed By: #### 1 3965-9, CBCA, FEPR, THYR, 2276-4, 2132-9, 2284-8, IMEL, SPE #### [facility] ([id number]) [address], [address] [place] [address] #### MTHFRS #### [facility] ([id number]) [address] [place] [address] ABSOLUTE NEUTROPHIL 2.4 X10E9/L Normal 1.5-6.6 [facility] Comment on above: Performed By: #### 1 3965-9, CBCA, FEPR, THYR, 6-4, 2131-9, 4-8, IMEL, SPE #### [facility] ([id number]) [address] [facility], [address] [place] [id number] #### MTHFRS #### [facility] ([id number]) [address] [place] [address] Basophils/100 WBC (Bld) 1.4 % Normal [facility] Comment on above: Performed By: #### 1 3965-9, CBCA, FEPR, THYR, 6-4, 2131-9, 4-8, IMEL, SPE #### [facility] ([id number]) [address] [facility], [address] [place] [address] #### MTHFRS #### [facility] ([id number]) [address] [place] [address] Eosinophils (Bld) [#/Vol] 0.1 10*3/uL Normal 0.0-0.4 [facility] Comment on above: Performed By: #### 1 3965-9, CBCA, FEPR, THYR, 2276-4, 2132-9, 2284-8, IMEL, SPE #### [facility] ([id number]) [address], [address] [place] [address] #### MTHFRS #### [facility] ([id number]) [address] [place] [address] Eosinophils/100 WBC (Bld) 2.8 % Normal [facility] Comment on above: Performed By: #### 1 3965-9, CBCA, FEPR, THYR, 2276-4, 2-9, 2284-8, IMEL, SPE #### [facility] ([id number]) [address], [address] [place] [address] #### MTHFRS #### [facility] ([id number]) [address] [place] [address] Erythrocyte distribution width (RBC) [Ratio] 15.5 % High 11.5-15.0 [facility] Comment on above: Performed By: #### 1 3965-9, CBCA, FEPR, THYR, 2276-4, 2131-9, 4-8, IMEL, SPE #### [place] [facility] ([id number]) [address], [address] [place] [address] #### MTHFRS #### [facility] ([id number]) [address] [place] [address] 17145 Hematocrit (Bld) [Volume fraction] 38.4 % Normal 35-47 [facility] Comment on above: Performed By: #### 1 3965-9, CBCA, FEPR, THYR, 2276-4, 2131-9, 4-8, IMEL, SPE #### [facility] ([id number]) [address], [address] [place] [address] #### MTHFRS #### [facility] ([id number]) [address] [place] [address] Hemoglobin (Bld) [Mass/Vol] 12.5 g/dL Normal 11.7-15.5 [facility] Comment on above: Performed By: #### 1 3965-9, CBCA, FEPR, THYR, 2276-4, 2132-9, 2284-8, IMEL, SPE #### [facility] ([id number]) [address], [address] [place] [address] #### MTHFRS #### [facility] ([id number]) [address] [place] [address] 84014 Lymphocytes (Bld) [#/Vol] 1.7 10*3/uL Normal 1.0-3.5 [facility] Comment on above: Performed By: #### 1 3965-9, CBCA, FEPR, THYR, 2276-4, 2-9, 2284-8, IMEL, SPE #### [facility] ([id number]) [address] [facility] [address] [place] [address] #### MTHFRS #### [facility] ([id number]) [address] [place] [address] 66141 Lymphocytes/100 WBC (Bld) 35.8 % Normal [facility] Comment on above: Performed By: #### 1 3965-9, CBCA, FEPR, THYR, 2276-4, 2132-9, 2284-8, IMEL, SPE #### [facility] ([id number]) [address] [address] [place] [address] #### MTHFRS #### [facility] ([id number]) [address] [place] [address] 16284 MCH (RBC) [Entitic mass] 28.5 pg Normal 27-34 [facility] Comment on above: Performed By: #### 1 3965-9, CBCA, FEPR, THYR, 2276-4, 2131-9, 4-8, IMEL, SPE #### [facility] ([id number]) [address], [address] [place] [address] #### MTHFRS #### [facility] ([id number]) [address] [place] [address] 18687 MCHC (RBC) [Mass/Vol] 32.7 g/dL Normal 32-[address] [facility] Comment on above: Performed By: #### 1 3965-9, CBCA, FEPR, THYR, 6-4, 2131-9, 2283-8, IMEL, SPE #### [facility] ([id number]) [address], [address] [place] [address] #### MTHFRS #### [facility] ([id number]) [address] [place] [address] 76736 MCV (RBC) [Entitic vol] 87 fL Normal 80-100 [facility] Comment on above: Performed By: #### 1 3965-9, CBCA, FEPR, THYR, 6-4, 2131-9, 2283-8, IMEL, SPE #### [facility] ([id number]) [address], [address] [place] [address] #### MTHFRS #### [facility] ([id number]) [address] [place] [address] 37699 Monocytes (Bld) [#/Vol] 0.5 10*3/uL Normal 0-0.9 [facility] Comment on above: Performed By: #### 1 3965-9, CBCA, FEPR, THYR, 2276-4, 2131-9, 4-8, IMEL, SPE #### [facility] ([id number]) [address], [address] [place] [address] #### MTHFRS #### [facility] ([id number]) [address] [place] [address] 56977 Monocytes/100 WBC (Bld) 10.0 % Normal [facility] Comment on above: Performed By: #### 1 3965-9, CBCA, FEPR, THYR, 2276-4, 2-9, 2284-8, IMEL, SPE #### [facility] ([id number]) [address] [facility] [facility] [place] [address] #### MTHFRS #### [facility] ([id number]) [address] [place] [address] 41564 Neutrophils/100 WBC (Bld) 50.0 % Normal [facility] Comment on above: Performed By: #### 1 3965-9, CBCA, FEPR, THYR, 6-4, 9, 4-8, IMEL, SPE #### [facility] ([id number]) [address] [facility] [facility] [place] [address] #### MTHFRS #### [facility] ([id number]) [address] [place] [address] 92219 Platelet mean volume (Bld) [Entitic vol] 9.6 fL Normal 7-12 [facility] Comment on above: Performed By: #### 1 3965-9, CBCA, FEPR, THYR, 2276-4, 9, 4-8, IMEL, SPE #### [facility] ([id number]) [address] [facility] [facility] [place] [address] #### MTHFRS #### [facility] ([id number]) [address] [place] [address] 38147 Platelets (Bld) [#/Vol] 194 10*3/uL Normal 150-450 [facility] Comment on above: Performed By: #### 1 3965-9, CBCA, FEPR, THYR, 2276-4, 2132-9, 2284-8, IMEL, SPE #### [facility] ([id number]) [address] [place] [address] #### MTHFRS #### [facility] ([id number]) [address] [place] [address] 48460 RBC COUNT 4.41 X10E12/L Normal 3.80-5.20 [facility] Comment on above: Performed By: #### 1 3965-9, CBCA, FEPR, THYR, 2276-4, 2132-9, 2284-8, IMEL, SPE #### [facility] ([id number]) [address] [place] [address] #### MTHFRS #### [facility] ([id number]) [address] [place] [address] 34787 WBC (Bld) [#/Vol] 4.9 10*3/uL Normal 4.0-11.0 [facility] Comment on above: Performed By: #### 1 3965-9, CBCA, FEPR, THYR, 2276-4, 2132-9, 2284-8, IMEL, SPE #### [facility] ([id number]) [address] [place] [address] #### MTHFRS #### [facility] ([id number]) [address] [place] [address] 19060 Clinical Pathologyon 024 Clinical Pathology Normal [facility] Comment on above: Result Comment: [facility] [address] [place] [address] Clinical Pathology Report Patient Name:ANGELA RUTH:1945 (Age: 78)Gender:FTaken:01/11/2024eported:01/14/2024hysician(s):MARCE Rayo ([phone])Copy To: Rec. #:[id number]: #[id number] Final Pathologic Diagnosis No monoclonal protein identified. Report Electronically Signed Out sb/01/12/2024duncan Alamo MD [place] [address], License number: [id number]. Clinical History G25.0, R26.89, G62.9, R79.0. SERUM IEP SAMPLE NUMBER: [id number] IMMUNOGLOBULIN LEVELS (mg/dL): IgG : 652 IgA : 225 IgM : 64 Free [place]: 3.45 Free Lambda: 2.10 Free [place]/Lambda ratio: 1.64 Specimen(s) Received Serum IEP Fee Codes(s): 1; 22848-16 FERRITINon 01-11-2024 Ferritin [Mass/Vol] 47 ng/mL Normal 11-307 [facility] Comment on above: Performed By: #### 1 3965-9, CBCA, FEPR, THYR, 6-4, 2132-07, 4-8, IMEL, SPE #### [facility] ([id number]) [address] [place] [address], [place] [address] #### MTHFRS #### [facility] ([id number]) [address] [place] [address], [place] [address] Folate [Mass/Vol]on 01-11-20 24 FOLIC ACID >25.0 Normal >5.8 [facility] Comment on above: Result Comment: NEW REFERENCE RANGE Performed By: #### 1 3965-9, CBCA, FEPR, THYR, 2276-4, 2131-9, 2284-8, IMEL, SPE #### [facility] ([id number]) [address] [place] [address], [address] [place] [address] #### MTHFRS #### [facility] ([id number]) [address] [place] [address] 93424 HGB A1C (GLYCO-HGB)on 2023 Glucose [Mass/Vol] 108 mg/dL Normal [facility] Comment on above: Performed By: #### 1 3965-9, CBCA, FEPR, THYR, 2275-, 2132-07, 2284-06, JOSHUA GONZALEZ #### [facility] ([id number]) [address] [place] [address], [address] [place] [address] #### MTHFRS #### [facility] ([id number]) [address] [place] [address] 06805 HbA1c (Bld) [Mass fraction] 5.4 % Normal 4.4-5.6 [facility] Comment on above: Result Comment: NOTE ADA Guidelines Result HgbA1c Normal : less than 5.7 % Prediabetes : 5.7 % to 6.4 % Diabetes : > 6.4 % Use with caution in patients with abnormal hemoglobin variants as the half-life of red blood cells and in vivo glycation rates are affected. Performed By: #### 1 3965-9, CBCA, FEPR, THYR, 2276-02, 2132-07, 2284-06, CARLOS SPE #### [facility] ([id number]) [address] [place] [address], [address] [place] [address] #### MTHFRS #### [facility] ([id number]) [address] [place] [address] 75074 Homocysteine [Moles/Vol]on 01-11-2024 HOMOCYSTEINE 14.23 mcmol/L Normal 3.36-20.44 [facility] Comment on above: Performed By: #### 1 3965-9, CBCA, FEPR, THYR, 2276-02, 2132-07, 2284-06, IMEL, SPE #### [facility] ([id number]) [address], [address] [place] [address] #### MTHFRS #### [facility] ([id number]) [address] [place] [address] IMMUNOELECTROPHORESIS FOR TH ERAPY MONITORINGon 01-11-2024 FREE IRASEMA/LAMBD RATIO 1.64 Normal 0.26-1.65 [facility] Comment on above: Performed By: #### 1 3965-9, CBCA, FEPR, THYR, 2275-, 2132-07, 2284-06, IMEL, SPE #### [facility] ([id number]) [address] [facility] [facility] [address] [place] [address] #### MTHFRS #### [facility] ([id number]) [address] [place] [address] 72670 FREE KAPPA LT CHAINS 3.45 mg/dL High 0.33-1.94 [facility] Comment on above: Performed By: #### 1 3965-9, CBCA, FEPR, THYR, 2276-02, 2132-07, 2284-06, IMEL, SPE #### [facility] ([id number]) [address], [address] [place] [address] #### MTHFRS #### [facility] ([id number]) [address] [place] [address] 03786 FREE LAMBDA LT CHAINS 2.10 mg/dL Normal 0.57-2.[address] [facility] Comment on above: Performed By: #### 1 3965-9, CBCA, FEPR, THYR, 2276-02, 2132-07, 2284-06, IMEL, SPE #### [facility] ([id number]) [address], [address] [place] [address] #### MTHFRS #### [facility] ([id number]) [address] [place] [address] 86192 IgA [Mass/Vol] 225 mg/dL Normal 68-378 [facility] Comment on above: Performed By: #### 1 3965-9, CBCA, FEPR, THYR, 2276-4, 2132-9, 2284-8, IMEL, SPE #### [facility] ([id number]) [address], [address] [place] [address] #### MTHFRS #### [facility] ([id number]) [address] [place] [address] 21560 IgG [Mass/Vol] 652 mg/dL Normal 635-1741 [facility] Comment on above: Performed By: #### 1 3965-9, CBCA, FEPR, THYR, 2276-4, 2-9, 2284-8, IMEL, SPE #### [facility] ([id number]) [address] [facility] [facility] [place] [address] #### MTHFRS #### [facility] ([id number]) [address] [place] [address] 09535 IgM [Mass/Vol] 64 mg/dL Normal 45-281 [facility] Comment on above: Performed By: #### 1 3965-9, CBCA, FEPR, THYR, 2276-4, 2-9, 2284-8, IMEL, SPE #### [facility] ([id number]) [address] [facility] [facility], [address] [place] [address] #### MTHFRS #### [facility] ([id number]) [address] [place] [address]25[address] IMMUNE PROFILE INTERP SEE SEPARATE REPORT Normal [facility] Comment on above: Performed By: #### 1 3965-9, CBCA, FEPR, THYR, 2276-4, 2-9, 2284-8, IMEL, SPE #### [facility] ([id number]) [address], [address] [place] [address] #### MTHFRS #### [facility] ([id number]) [address] [place] [address] 55616 IRON PROFILEon 01-11-2024 Iron [Mass/Vol] 100 ug/dL Normal 50-170 [facility] Comment on above: Performed By: #### 1 3965-9, CBCA, FEPR, THYR, 2276-4, 2132-9, 2284-8, IMEL, SPE #### [facility] ([id number]) [address], [address] [place] [address] #### MTHFRS #### [facility] ([id number]) [address] [place] [address] 72340 IRON BINDING 438 ug/dL High 250-425 [facility] Comment on above: Performed By: #### 1 3965-9, CBCA, FEPR, THYR, 2276-4, 2132-9, 2284-8, IMEL, SPE #### [facility] ([id number]) [address], [address] [place] [address] #### MTHFRS #### [facility] ([id number]) [address] [place] [address] 51382 IRON SATURATION 23 % SATURATION Normal 15-50 [facility] Comment on above: Performed By: #### 1 3965-9, CBCA, FEPR, THYR, 2276-4, 2132-9, 2284-8, IMEL, SPE #### [facility] ([id number]) [address], [address] [place] [address] #### MTHFRS #### [facility] ([id number]) [address] [place] [address] 22551 MTHFRon 01-11-2024 MTHFR INTERPRETATION SEE NOTE Normal [facility] Comment on above: Result Comment: NOTE Indication for testing: Determine genetic contribution to hyperhomocysteinemia. Negative: Neither of the common MTHFR gene variants tested, c.665C>T (previously designated C677T) and c.1286A>C (previously designated L5210N), were detected. Other causes of elevated homocysteine [...] has an effect on cardiovascular disease. The [employer] Practice Guidelines indicate [...] a contributing factor to hyperhomocysteinemia. Variants Tested: c.665C>T(p.Osp603Meg) and c.1286A>C(p.Gmb658Dgx). (legacy names C677T and K1213L, respectively). Clinical Sensitivity: Undefined; hyperhomocysteinemia is caused [...] developed and its performance characteristics determined by [employer]. It has not been cleared or approved by the [place] Food and Drug Administration. This test was performed in a CLIA certified laboratory and is intended for clinical purposes. Counseling and informed consent are recommended for genetic testing. Consent forms are available online. Performed By: [facility] [address] [place] [address] Mobile Developer: Jacob Sparks MD, PhD CLIA Number: [id number] Performed By: #### 1 3965-9, CBCA, FEPR, THYR, 2276-4, 2132-9, 2284-8, IMEL, SPE #### [facility] ([id number]) [address] [place] [address], [address] [place] [address] #### MTHFRS #### [facility] ([id number]) [address] [place] [address], [place] [address] MTHFR MUT A7306HZ Negative Normal [facility] Comment on above: Performed By: #### 1 3965-9, CBCA, FEPR, THYR, 2276-4, 2-9, 4-8, IMEL, SPE #### [facility] ([id number]) [address] [place] [address], [address] [place] [address] #### MTHFRS #### [facility] ([id number]) [address] [place] [address], [place] [address] MTHFR MUT C665CT Negative Normal [facility] Comment on above: Performed By: #### 1 3965-9, CBCA, FEPR, THYR, 2276-4, 2131-9, 4-8, IMEL, SPE #### [facility] ([id number]) [address] [place] [address], [address] [place] [address] #### MTHFRS #### [facility] ([id number]) [address] [place] [address]125 MTHFR PCR SPECIMEN WHOLE BLOOD Normal [facility] Comment on above: Performed By: #### 1 3965-9, CBCA, FEPR, THYR, 2276-4, 2-9, 2284-8, IMEL, SPE #### [facility] ([id number]) [address] [facility], [address] [place] [address] #### MTHFRS #### [facility] ([id number]) [address] [place] [address] 70947 Methylmalonate [Moles/Vol]on 01-11-2024 MMA QN 0.14 umol/L Normal <=0.40 [facility] Comment on above: Result Comment: NOTE This test was developed and its performance characteristics determined by [facility]'s [facility] [place] [facility] It has not been cleared or approved by the FDA. -[facility] is regulated under CLIA as qualified to perform high-complexity testing. This test is used for clinical purposes. It should not be regarded as investigational or for research. Test Performed By: [place] [address] Mobile Developer: Berry Larsen III, M.D. CLIA #[id number] Performed By: #### 1 3965-9, CBCA, FEPR, THYR, 2276-4, 2131-9, 4-8, IMEL, SPE #### [facility] ([id number]) [address] [place] [address], [address] [place] [address] #### MTHFRS #### [facility] ([id number]) [address] [place] [address] 50876 SERUM PROTEIN ELECTROPHORESI Son 01-11-2024 Albumin [Mass/Vol] 4.0 g/dL Normal 3.4-5.3 [facility] Comment on above: Performed By: #### 1 3965-9, CBCA, FEPR, THYR, 2276-4, 213-9, 22848, IMEL, SPE #### [facility] ([id number]) [address] [facility], [address] [place] [address] #### MTHFRS #### [facility] ([id number]) [address] [place] [address] 26398 ALPHA 1 GLOBULIN 0.3 g/dL Normal 0.1-0.4 [facility] Comment on above: Performed By: #### 1 3965-9, CBCA, FEPR, THYR, 6-4, 2132-07, 8, IMEL, SPE #### [facility] ([id number]) [address], [address] [place] [address] #### MTHFRS #### [facility] ([id number]) [address] [place] [address] ALPHA 2 GLOBULIN 0.8 g/dL Normal 0.4-1.1 [facility] Comment on above: Performed By: #### 1 3965-9, CBCA, FEPR, THYR, 2275-, 2132-07, 2284-06, IMEL, SPE #### [facility] ([id number]) [address], [address] [place] [address] #### MTHFRS #### [facility] ([id number]) [address] [place] [address] 76112 BETA GLOBULIN 0.8 g/dL Normal 0.5-1.2 [facility] Comment on above: Performed By: #### 1 3965-9, CBCA, FEPR, THYR, 2276-02, 2132-07, 2284-06, IMEL, SPE #### [facility] ([id number]) [address], [address] [place] [address] #### MTHFRS #### [facility] ([id number]) [address] [place] [address] 58402 GAMMA GLOBULIN 0.7 g/dL Normal 0.5-1.6 [facility] Comment on above: Performed By: #### 1 3965-9, CBCA, FEPR, THYR, 2275-, 2132-07, 2284-06, IMEL, SPE #### [facility] ([id number]) [address], [address] [place] [address] #### MTHFRS #### [facility] ([id number]) [address] [place] [address]172 PROT. ELECTROPHORESIS INTERP Unremarkable protein distribution, no monoclonal bands. Normal [facility] Comment on above: Performed By: #### 1 3965-9, CBCA, FEPR, THYR, 2276-4, 2-9, 2284-8, IMEL, SPE #### [facility] ([id number]) [address] [facility] [facility], [address] [place] [address] #### MTHFRS #### [facility] ([id number]) [address] [place] [address] 98931 Protein [Mass/Vol] 6.5 g/dL Normal 6.0-8.0 [facility] Comment on above: Performed By: #### 1 3965-9, CBCA, FEPR, THYR, 2276-4, 2-9, 2284-8, IMEL, SPE #### [facility] ([id number]) [address] [facility] [facility], [address] [place] [address] #### MTHFRS #### [facility] ([id number]) [address] [place] [address] 08980 THYROID PROFILEon 01-11-2024 Free T4 [Mass/Vol] 1.09 ng/dL Normal 0.61-1.60 [facility] Comment on above: Performed By: #### 1 3965-9, CBCA, FEPR, THYR, 2276-4, 2-9, 2284-8, IMEL, SPE #### [facility] ([id number]) [address], [address] [place] [address] #### MTHFRS #### [facility] ([id number]) [address] [place] [address] TSH 0.60 uIU/mL Normal 0.49-4.67 [facility] Comment on above: Performed By: #### 1 3965-9, CBCA, FEPR, THYR, 2276-4, 2132-9, 2284-8, IMEL, SPE #### [facility] ([id number]) [address] [facility] [facility] [facility], [address] [place] [address] #### MTHFRS #### [facility] ([id number]) [address] [place] [address] VITAMIN B12on 01-11-2024 Cobalamin (Vitamin B12) [Mass/Vol] 407 pg/mL Normal 180-914 [facility] Comment on above: Performed By: #### 1 3965-9, CBCA, FEPR, THYR, 2276-4, 2132-9, 2284-8, IMEL, SPE #### [facility] ([id number]) [address], [address] [place] [address] #### MTHFRS #### [facility] ([id number]) [address] [place] [address] DEXA SCAN CENTRAL SKELETALon 12-06-2023 DEXA SCAN [...] Ann MD on 12/06/2023 2:10 AM Normal [facility] CT Abdomen/Pelvis w + w/o Co ntraston [...] by Felix Dominguez on 12/07/2022 1159 Normal [facility] [employer] XR HAND LEFT (MIN 3 VIEWS)on 11-07-2022 [...] Matt Cowart MD 11/07/22 Final result Normal [facility] XR HAND LEFT (MIN 3 [...] Matt Cowart MD 11/07/22 Final result Normal [facility] XR Chest 2 Views*on 09-10-20 [...] by Bartolome Monson on 09/10/2022 1507 Normal [facility] Complete Blood Count with Au to Diffon 12-11-2021 Basophils (Bld) [#/Vol] 0.07 10*3/uL Normal 0.00-0.20 [facility] Comment on above: Performed By: #### C MP, CBCAD #### [facility] [address] [place], [place] [id number] Basophils/100 WBC (Bld) 0.9 % [facility] Comment on above: Performed By: #### C MP, CBCAD #### [facility] [address] [place], [place] [id number] Eosinophils (Bld) [#/Vol] 0.17 10*3/uL Normal 0.02-0.50 [facility]ist Comment on above: Performed By: #### C MP, CBCAD #### [facility] [address] [place], [place] [id number] Eosinophils/100 WBC (Bld) 2.3 % Normal [facility] Specialist Comment on above: Performed By: #### C MP, CBCAD #### [facility] [address] [place], [place] [id number] Erythrocyte distribution width (RBC) [Ratio] 16.4 % High 11.0-15.0 [facility] Specialist Comment on above: Performed By: #### C MP, CBCAD #### [facility] [address] [place], [place] [id number] Hematocrit (Bld) [Volume fraction] 42.9 % Normal 35.0-47.0 [facility] Comment on above: Performed By: #### C MP, CBCAD #### [facility] [address] [place], [place] [id number] Hemoglobin (Bld) [Mass/Vol] 13.5 g/dL Normal 11.6-15.5 [facility] Special[facility] Comment on above: Performed By: #### C MP, CBCAD #### [facility] [address] [place], [place] [id number] Lymphocytes (Bld) [#/Vol] 2.7 10*3/uL Normal 0.9-3.9 [facility] Comment on above: Performed By: #### C MP, CBCAD #### [facility] [address] [place], [place] [id number] Lymphocytes/100 WBC (Bld) 36.1 % Normal [facility] Comment on above: Performed By: #### C MP, CBCAD #### [facility] [address] [place], [place] [id number] MCH (RBC) [Entitic mass] 27.7 pg Normal 27.0-33.0 [facility] Comment on above: Performed By: #### C MP, CBCAD #### [facility] [address] [place], [place] [id number] MCHC (RBC) [Mass/Vol] 31.5 g/dL Low 32.0-36.0 [facility] Comment on above: Performed By: #### C MP, CBCAD #### [facility] [address] [place], [place] [id number] MCV (RBC) [Entitic vol] 88 fL Normal 80-100 [facility] Comment on above: Performed By: #### C MP, CBCAD #### [facility] [address] [place], [place] [id number] Monocytes (Bld) [#/Vol] 0.8 10*3/uL Normal 0.2-0.9 [facility] Comment on above: Performed By: #### C MP, CBCAD #### [facility] [address] [place], [place] [id number] Monocytes/100 WBC (Bld) 10.8 % Normal [facility] Comment on above: Performed By: #### C MP, CBCAD #### [facility] [address] [place], [place] [id number] Neutrophils (Bld) [#/Vol] 3.7 10*3/uL Normal 1.5-7.8 [facility] Comment on above: Performed By: #### C MP, CBCAD #### [facility] [address] [place], [place] [id number] Neutrophils/100 WBC (Bld) 49.2 % Normal [facility] Specialist Comment on above: Performed By: #### C MP, CBCAD #### [facility] [address] [place], [place] [id number] Platelet mean volume (Bld) [Entitic vol] 11.00 fL Normal 7.50-12.50 [facility] Specialist Comment on above: Performed By: #### C MP, CBCAD #### [facility] [address] [place], [place] [id number] Platelets (Bld) [#/Vol] 246 10*3/uL Normal 140-400 [facility] Specialist Comment on above: Performed By: #### C MP, CBCAD #### [facility] [address] [place], [place] [id number] RBC (Bld) [#/Vol] 4.88 10*6/uL Normal 3.90-5.20 [facility] [facility]er Comment on above: Performed By: #### C MP, CBCAD #### [facility] [address] [place], [place] [id number] RDW-SD 53.1 fL High 37.0-50.0 [facility] Specialist Comment on above: Performed By: #### C MP, CBCAD #### [facility] [address] [place], [place] [id number] WBC (Bld) [#/Vol] 7.5 10*3/uL Normal 3.8-11.0 [facility]er Comment on above: Performed By: #### C MP, CBCAD #### [facility] [address] [place], [place] [id number] Comprehensive Metabolic Pane gadiel 12-11-2021 Albumin [Mass/Vol] 4.2 g/dL Normal 3.6-5.1 [facility] Cleaner Comment on above: Performed By: #### C MP, CBCAD #### [facility] [address] [place], [place] [id number] Albumin/Globulin [Mass ratio] 1.7 {ratio} Normal 1.0-2.5 [facility] Specialist Comment on above: Performed By: #### C MP, CBCAD #### [facility] [address] [place], [place] [id number] ALP [Catalytic activity/Vol] 71 U/L Normal 35-119 [facility] [employer]er Comment on above: Performed By: #### C MP, CBCAD #### [facility] [address] [place], [place] [id number] ALT [Catalytic activity/Vol] 12 U/L Normal 6-33 [facility] Specialist Comment on above: Result Comment: 10/22 Female reference range changed. Performed By: #### C MP, CBCAD #### [facility] [address] [place], [place] [id number] Anion gap [Moles/Vol] 18 mmol/L Normal 12-20 [facility] Specialist Comment on above: Result Comment: Effe ctive 11/27/2019 reference range changed. Performed By: #### C MP, CBCAD #### [facility] [address] [place], [place] [id number] AST [Catalytic activity/Vol] 15 U/L Normal 9-34 [facility] Comment on above: Performed By: #### C MP, CBCAD #### [facility] [address] [place], [place] [id number] Bilirubin [Mass/Vol] 0.33 mg/dL Normal 0.30-1.20 [facility] Comment on above: Performed By: #### C MP, CBCAD #### [facility] [address] [place], [place] [id number] BUN/CREA 35 Ratio High 6-22 [facility] Comment on above: Performed By: #### C MP, CBCAD #### [facility] [address] [place], [place] [id number] Calcium [Mass/Vol] 9.4 mg/dL Normal 8.6-10.2 [facility] Comment on above: Performed By: #### C MP, CBCAD #### [facility] [address] [place], [place] [id number] Chloride [Moles/Vol] 106 mmol/L Normal 98-107 [facility] Comment on above: Performed By: #### C MP, CBCAD #### [facility] [address] [place], [place] [id number] CO2 [Moles/Vol] 24 mmol/L Normal 20-31 [facility] Comment on above: Performed By: #### C MP, CBCAD #### [facility] [address] [place], [place] [id number] Creatinine [Mass/Vol] 0.9 mg/dL Normal 0.6-1.4 [facility] Comment on above: Performed By: #### C MP, CBCAD #### [facility] [address] [place], [place] [id number] eGFRAA 70 mL/min/1.73m2 Normal >60 [facility] Comment on above: Performed By: #### C MP, CBCAD #### [facility] [address] [place], [place] [id number] eGFRNAA 58 mL/min/1.73m2 Low >60 [facility] Ultrasonic Cleaner Comment on above: Performed By: #### C MP, CBCAD #### [facility] [address] [place], [place] [id number] Globulin (S) [Mass/Vol] 2.5 g/dL Normal 1.9-3.7 [facility] Specialist Comment on above: Performed By: #### C MP, CBCAD #### [facility] [address] [place], [place] [id number] Glucose [Mass/Vol] 84 mg/dL Normal 65-99 [facility] [place] [employer] Cleaner Comment on above: Result Comment: For FASTING Glucose --- ADA reference ranges: Normal 65-99 mg/dl Prediabetes 100-125 Diabetes >/= 126 Performed By: #### C MP, CBCAD #### [facility] [address] [place], [place] [id number] Potassium [Moles/Vol] 4.3 mmol/L Normal 3.5-5.5 [facility] Comment on above: Performed By: #### C MP, CBCAD #### [facility] [address] [place], [place] [id number] Protein [Mass/Vol] 6.7 g/dL Normal 6.1-8.1 [facility] [place] [employer] Comment on above: Performed By: #### C MP, CBCAD #### [facility] [address] [place], [place] [id number] Sodium [Moles/Vol] 143 mmol/L Normal 135-146 [facility] [place] [employer] Comment on above: Performed By: #### C MP, CBCAD #### [facility] [address] [place], [place] [id number] Urea nitrogen [Mass/Vol] 33 mg/dL High 7-25 [facility] Ultr[employer] Cleaner Comment on above: Performed By: #### C MP, CBCAD #### [facility] [address] [place], [place] [id number] Calciumon 06-20-2019 Calcium [Mass/Vol] 10.0 mg/dL Normal 8.4-10.2 [facility] Comment on above: Performed By: #### 1 030, 1035, 4500, 4510, 4520, 4581 #### [facility] Unless Otherwise Noted [address] [address] / COLA #4724/CLIA # [id number] Creatinineon 06-20-2019 Creatinine [Mass/Vol] 0.9 mg/dL Normal 0.5-1.0 [facility] Comment on above: Performed By: #### 1 030, 1035, 4500, 4510, 4520, 4581 #### [facility] Unless Otherwise Noted [address] [address] / COLA #4724/CLIA # [id number] Creatinine [Mass/Vol] 74.8 Kg Normal [facility] Comment on above: Performed By: #### 1 030, 1035, 4500, 4510, 4520, 4581 #### [facility] Unless Otherwise Noted [address] [address] / COLA #4724/CLIA # [id number] Creatinine [Mass/Vol] 64.8 ml/m1.73 Normal [facility] Comment on above: Performed By: #### 1 030, 1035, 4500, 4510, 4520, 4581 #### [facility] Unless Otherwise Noted [address] [address] / COLA #4724/CLIA # [id number] Creatinine [Mass/Vol] 65.1 ml/m1.73 Normal [facility] Comment on above: Performed By: #### 1 030, 1035, 4500, 4510, 4520, 4581 #### [facility] Unless Otherwise Noted [address] [address] / COLA #4724/CLIA # [id number] Creatinine [Mass/Vol] 78.7 ml/m1.73 Normal [facility] Diabetes [facility] Comment on above: Performed By: #### 1 030, 1035, 4500, 4510, 4520, 4581 #### [facility] Unless Otherwise Noted [address] [address] / COLA #4724/CLIA # [id number] FT3on 06-20-2019 FT3 2.80 pg/mL Normal 2.45-5.93 [facility] Diabetes [facility] Comment on above: Performed By: #### 1 030, 1035, 4500, 4510, 4520, 4581 #### [facility] and Diabetes [facility] Unless Otherwise Noted [address] [address] / COLA #4724/CLIA # [id number] FT4on 06-20-2019 Free T4 [Mass/Vol] 1.93 ng/dL Normal 0.78-2.44 [facility] Diabetes [facility] Comment on above: Performed By: #### 1 030, 1035, 4500, 4510, 4520, 4581 #### [facility] and Diabetes [facility] Unless Otherwise Noted [address] [address] / COLA #4724/CLIA # [id number] TSHon 06-20-2019 TSH Qn 0.57 uIU/ml Normal 0.47-4.68 [facility] Diabetes [facility] Comment on above: Performed By: #### 1 030, 1035, 4500, 4510, 4520, 4581 #### [facility] Diabetes [facility] Unless Otherwise Noted [address] [address] / COLA #4724/CLIA # [id number] VITAMIN D 25on 06-20-2019 VITAMIN D 25 51.5 ng/ml Normal 30.0-100.0 [facility] Comment on above: Result Comment: Defi cient <20 Insufficient 20-<30 Sufficient 30-100 Potiential Toxicity >100 Performed By: #### 1 030, 1035, 4500, 4510, 4520, 4581 #### [facility] Unless Otherwise Noted [address] [facility] [address] [place] [address] / COLA #4724/CLIA # [id number] Basic Metabolic Profon 05-06 (cont.) Normal [facility] Comment on above: Result Comment: Aver age GFR for 70 or more years old: 75 mL/min/1.73sq mChronic Kidney Disease: <60 mL/min/1.73sq mKidney failure: <15 mL/min/1.73sq meGFR calculated using average adult body mass. Additional eGFR calculator available at:http://[email or web address] Go/multiple_crcl_2012.htmPerformed at [facility] [address] [place] [address] Performed By: #### C DP, BMP ####[facility] [place] [address] Anion gap 14 mmol/L Normal 9-17 [facility] Comment on above: Performed By: #### C DP, BMP ####[facility] [place] [address] Calcium 9.6 mg/dL Normal 8.6-10.4 [facility] Comment on above: Performed By: #### C DP, BMP ####[facility] [place] [address] Chloride 106 mmol/L Normal 98-107 [facility] Comment on above: Performed By: #### C DP, BMP ####[facility] [place] [address] CO2 26 mmol/L Normal 20-31 [facility] Comment on above: Performed By: #### C DP, BMP ####[facility] [place] [address] Creatinine 0.91 mg/dL High 0.50-0.90 [facility] Comment on above: Performed By: #### C DP, BMP ####[facility] [place] [address] eGFR (non-black) mL/min/{1.73_m2} Normal >60 [facility] Comment on above: Performed By: #### C DP, BMP ####[facility] [place] [address] Glucose mass conc 99 mg/dL Normal 70-99 [facility] Comment on above: Performed By: #### C DP, BMP ####[facility] [place] [address] Potassium molar conc 4.2 mmol/L Normal 3.7-5.3 [facility] Comment on above: Performed By: #### C DP, BMP ####[facility] [place] [address] Sodium 146 mmol/L High 135-144 [facility] Comment on above: Performed By: #### C DP, BMP ####[facility] [place] [address] Urea nitrogen 21 mg/dL Normal 8-23 [facility] Comment on above: Performed By: #### C DP, BMP ####[facility] [place] [address].[place] [address] BUN/CRE Ratio NOT REPORTED Normal 9-20 [facility] Comment on above: Performed By: #### C DP, BMP ####[facility] [place] [address] Staging: NOT REPORTED Normal [facility] Comment on above: Performed By: #### C DP, BMP ####[facility] [place] [address] CBC with Diffon 05-06-2018 Abs. Basophil 0.10 k/uL Normal 0.0-0.2 [facility] Comment on above: Result Comment: Perf ormed at [facility] [address] [place] [address] Performed By: #### C DP, BMP ####[address] [address] Abs.Neutrophil (Seg) 4.00 k/uL Normal 1.3-9.1 [facility] Comment on above: Performed By: #### C DP, BMP ####[facility] [place] [address] Basophils/100 WBC Auto (Bld) 1 % Normal 0-2 [facility] Comment on above: Performed By: #### C DP, BMP ####[facility] [place] [address] Eosinophils 0.20 10*3/uL Normal 0.0-0.4 [facility] Comment on above: Performed By: #### C DP, BMP ####[facility] [place] [address] Eosinophils/100 leukocytes 2 % Normal 0-4 [facility] Comment on above: Performed By: #### C DP, BMP ####[facility] [place] [address] Erythrocyte distribution width Auto Ratio (RBC) 13.9 % Normal 11.5-14.9 [facility] Comment on above: Performed By: #### C DP, BMP ####[facility] [place] [address] Erythrocytes (RBC) 4.68 10*6/uL Normal 4.0-5.2 [facility] Comment on above: Performed By: #### C DP, BMP ####[facility] [place] [address] Hematocrit (HCT) 41.8 % Normal 36-46 [facility] Comment on above: Performed By: #### C DP, BMP ####[facility] [place] [address] Hemoglobin mass conc (Bld) 13.7 g/dL Normal 12.0-16.0 [facility] Comment on above: Performed By: #### C DP, BMP ####[address] [address] Lymphocytes 3.20 10*3/uL Normal 1.0-4.8 [facility] Comment on above: Performed By: #### C DP, BMP ####[facility] [place] [address] Lymphocytes/100 leukocytes 39 % Normal 24-44 [facility] Comment on above: Performed By: #### C DP, BMP ####[facility] [place] [address] MCH 29.3 pg Normal 26-34 [facility] Comment on above: Performed By: #### C DP, BMP ####[facility] [place] [address] MCHC mass conc (RBC) 32.8 g/dL Normal 31-37 [facility] Comment on above: Performed By: #### C DP, BMP ####[facility] [facility] [place] [address] MCV 89.3 fL Normal 80-100 [facility] Comment on above: Performed By: #### C DP, BMP ####[facility] [facility] [place] [address] Monocytes 0.90 10*3/uL Normal 0.1-1.3 [facility] Comment on above: Performed By: #### C DP, BMP ####[facility] [place] [address] Monocytes/100 leukocytes 11 % High 1-7 [facility] Comment on above: Performed By: #### C DP, BMP ####[facility] [place] [address] Neutrophil (Seg) 47 % Normal 36-66 [facility] Comment on above: Performed By: #### C DP, BMP ####[facility] [place] [address] Platelet mean volume (PMV) 10.3 fL Normal 6.0-12.0 [facility] Comment on above: Performed By: #### C DP, BMP ####[facility] [place] [address] Platelets 232 10*3/uL Normal 150-450 [facility] Comment on above: Performed By: #### C DP, BMP ####[facility] [place] [address] WBC (Leukocytes) 8.4 10*3/uL Normal 3.5-11.0 [facility] Comment on above: Performed By: #### C DP, BMP ####[facility] [place] [address] Auto Diff Performed NOT REPORTED Normal [facility] Comment on above: Performed By: #### C DP, BMP ####[facility] [facility] [place] [address] Erythrocyte morphology NOT REPORTED Normal [facility] Comment on above: Performed By: #### C DP, BMP ####[facility] [place] [address] Erythrocytes (RBC) NOT REPORTED Normal [facility] Comment on above: Performed By: #### C DP, BMP ####[facility] [facility] [place] [address] Granulocytes/100 WBC (Bld) NOT REPORTED Normal 0.00-0.30 [facility] Comment on above: Performed By: #### C DP, BMP ####[address] [address] Immature granulocytes #/vol (Bld) NOT REPORTED Normal 0 [facility] Comment on above: Performed By: #### C DP, BMP ####[facility] [place] [address] Platelets NOT REPORTED Normal [facility] Comment on above: Performed By: #### C DP, BMP ####[facility] [place] [address] WBC Morphology NOT REPORTED Normal [facility] Comment on above: Performed By: #### C DP, BMP ####[address] [address] Vital Signs Date Time Vital Sign Value Performing Clinician Leyda nevarez 08-29-2024 13:53-0400 Body height 160 cm Maria C Kramer MD Work Phone: [facility] [employer] 08-29-2024 13:53-0400 Body mass index (BMI) [Ratio] 26.22 kg/m2 Maria C Kramer MD Work Phone: [facility] 08-29-2024 13:53-0400 Body weight 67.13 kg Maria C Kramer MD Work Phone: [facility] 08-29-2024 13:53-0400 Diastolic blood pressure 68 mm[Hg] Maria C Kramer MD Work Phone: [facility] 08-29-2024 13:53-0400 Heart rate 87 /min Maria C Kramer MD Work Phone: [facility] 08-29-2024 13:53-0400 Systolic blood pressure 125 mm[Hg] Maria C Kramer MD Work Phone: [facility] 04-04-2024 11:29-0400 Body height 160 cm Mandi Hoover MD Work Phone: [facility] 04-04-2024 11:29-0400 Body mass index (BMI) [Ratio] 27.18 kg/m2 Mandi Hoover MD Work Phone: [facility] 04-04-2024 11:29-0400 Body temperature 97.7 [degF] Mandi Hoover MD Work Phone: [facility] 04-04-2024 11:29-0400 Body weight 69.6 kg Mandi Hoover MD Work Phone: [facility] 04-04-2024 11:29-0400 Diastolic blood pressure 65 mm[Hg] Mandi Hoover MD Work Phone: [facility] 04-04-2024 11:29-0400 Heart rate 80 /min Mandi Hoover MD Work Phone: [facility] 04-04-2024 11:29-0400 Respiratory rate 18 /min Mandi Hoover MD Work Phone: [facility] 04-04-2024 11:29-0400 SaO2% (BldA) [Mass fraction] 96 % Mandi Hoover MD Work Phone: [facility] 04-04-2024 11:29-0400 Systolic blood pressure 105 mm[Hg] Mandi Hoover MD Work Phone: [facility] 02-24-2024 12:02-0400 Body height 160 cm Ryan Dallas MD Work Phone: [facility] 02-24-2024 12:02-0400 Body mass index (BMI) [Ratio] 27.21 kg/m2 Ryan Dallas MD Work Phone: [facility] 02-24-2024 12:02-0400 Body weight 69.67 kg Ryan Dallas MD Work Phone: [facility] 02-24-2024 12:02-0400 Diastolic blood pressure 76 mm[Hg] Ryan Dallas MD Work Phone: [facility] 02-24-2024 12:02-0400 Heart rate 78 /min Ryan Dallas MD Work Phone: [facility] 02-24-2024 12:02-0400 Respiratory rate 16 /min Ryan Dallas MD Work Phone: [facility] 02-24-2024 12:02-0400 SaO2% (BldA) [Mass fraction] 94 % Ryan Dallas MD Work Phone: [facility] 02-24-2024 12:02-0400 Systolic blood pressure 147 mm[Hg] Ryan Dallas MD Work Phone: [facility] 01-07-2024 10:29-0500 Body height 160 cm Yoanna Dorsey SALES AGENT [employer] Work Phone: [facility] 01-07-2024 10:29-0500 Body mass index (BMI) [Ratio] 27.63 kg/m2 Yoanna Dorsey SALES AGENT [employer] DISP[employer]ER Work Phone: [facility] 01-07-2024 10:29-0500 Body weight 70.76 kg Yoanna Dorsey APRN-[employer]EST [employer] DISPATCHER Work Phone: [facility] 01-07-2024 10:29-0500 Diastolic blood pressure 78 mm[Hg] Yoanna Dorsey SALES AGENT [employer]ER Work Phone: [facility] 01-07-2024 10:29-0500 Heart rate 80 /min Yoanna Dorsey SALES AGENT [employer] DISPATCHER Work Phone: [facility] 01-07-2024 10:29-0500 Systolic blood pressure 124 mm[Hg] Yoanna Dorsey SALES AGENT [employer] Work Phone: [facility] Encounters Encounter Date Encounter Type Care Provider Facility Start: 08-29-2024 End: 08-29-2024 Office consultation new/estab patient 40 min Maria C Kramer MD Work Phone: [facility] Comment on above: Urge incontinence Start: 08-29-2024 End: 08-29-2024 ambulatory [facility] Anny [facility] Start: 08-22-2024 End: 08-24-2024 Antony Ochoa [facility] Start: 08-21-2024 End: 08-21-2024 ambulatory Adelfo Hansen MD Facility: [facility] Start: 08-14-2024 End: 08-14-2024 ambulatory [facility]O Not Available Start: 08-08-2024 End: 08-08-2024 ambulatory BIA Mccormick [facility] Not Available Start: 07-17-2024 End: 07-17-2024 ambulatory Adelfo Hansen MD Facility: [facility] Start: 07-13-2024 End: 07-13-2024 ambulatory [facility] Start: 07-10-2024 End: 07-10-2024 ambulatory BIA CAO Not Available Start: 07-10-2024 End: 07-10-[address] [facility] Start: 07-03-2024 End: 07-03-2024 ambulatory RUBÉN MARK Not Available Start: 06-14-2024 End: 06-14-2024 ambulatory [facility] Start: 05-09-2024 Orders Only Mandi gambino MD Work Phone: [facility] Comment on above: Intracranial meningi brandon (HCC) (Primary Dx); Benign neoplasm of meninges (HCC) Start: 05-04-2024 End: 05-04-2024 ambulatory BIA CAO Not Available Start: 05-01-2024 End: 05-01-2024 ambulatory Adelfo Hansen MD Facility: [facility] Start: 04-05-2024 End: 04-05-2024 ambulatory BIA NASH Not Available Start: 04-04-2024 End: 04-04-2024 ambulatory MANDI HOOVER Facility:[facility] Start: 04-04-2024 End: 04-04-2024 Patient encounter procedure Mandi Hoover MD Work Phone: [facility] Comment on above: Intracranial meningi brandon (HCC) (Primary Dx); Sensorineural hearing loss (SNHL) of right ear, unspecified hearing status on contralateral side; Dizziness Start: 04-03-2024 End: 04-03-2024 ambulatory [facility]O Not Available Start: 03-24-2024 Telephone encounter Neurology Provid er Neurology Comment on above: Received Outside [facility] Records (External referral to Neurological [place]/); triage; Nurse Triage Call; Appointment Start: 03-24-2024 End: 03-24-2024 ambulatory [facility] Start: 03-16-2024 ambulatory [facility] Anny [facility] Start: 03-13-2024 End: 03-13-2024 ambulatory Adelfo Hansen MD Facility:[facility] Start: 03-10-2024 End: 03-10-2024 ambulatory [facility] Start: 03-02-2024 End: 03-02-2024 ambulatory [facility] CAO Not Available Start: 02-24-2024 End: 02-24-2024 Office outpatient visit 15 minutes Ryan Dallas MD Work Phone: [facility] Comment on above: Essential hypertensi on (Primary Dx); LVH (left ventricular hypertrophy); Mixed hyperlipidemia; Hypotension due to drugs Start: 02-22-2024 End: 02-22-2024 ambulatory [facility] Not Available Start: 02-15-2024 End: 02-15-2024 ambulatory [facility] Not Available Start: 02-11-2024 End: 02-12-2024 Emergency department patient visit JUAN TAMEZ [facility] Start: 02-10-2024 Orders Only Ryan aquino MD Work Phone: [facility] Comment on above: Essential hypertensi on Start: 02-09-2024 Refill Dorsi Hawkins RN [facility] Start: 02-07-2024 End: 02-07-2024 ambulatory Adelfo Hansen MD [facility] Start: 01-18-2024 End: 01-18-2024 ambulatory RIA SNYDER Not Available Start: 01-12-2024 End: 01-12-2024 ambulatory RIA SNYDER Not Available Start: 01-11-2024 End: 01-11-[address] [facility] Start: 01-10-2024 End: 01-10-2024 ambulatory Adelfo Hansen MD [facility] Start: 01-07-2024 End: 01-07-2024 Office outpatient visit 25 minutes [facility] SALES AGENT [employer] DISPATCHER Work Phone: [facility] Comment on above: Migraine without aur a and without status migrainosus, not intractable (Primary Dx); Bilateral occipital neuralgia; Essential tremor; Cervicalgia; Trapezius muscle spasm; Balance problem; Psychophysiological insomnia; Polyneuropathy; Prediabetes; Essential (primary) hypertension; Abnormal level of blood mineral; Decreased hearing of both ears Start: 01-07-2024 End: 01-07-2024 ambulatory [facility] Start: 01-06-2024 End: 01-06-2024 ambulatory Ria Snyder EDGE SANDER Work Phone: [facility] Comment on above: General weakness (Pr imary Dx); History of falling Start: 01-04-2024 Bamboo flowsheet Ria Jessicaig ht EDGE SANDER Work Phone: [facility] Start: 01-04-2024 Bamboo flowsheet Ria Wrig ht EDGE SANDER Work Phone: [facility] Start: 01-04-2024 End: 01-04-2024 ambulatory Ria Snyder EDGE SANDER Work Phone: [facility] Comment on [...] Start: 12-23-2023 End: 12-23-2023 ambulatory Ria Snyder EDGE SANDER Work Phone: [facility] Comment on [...] Available Start: 12-03-2023 End: 12-03-2023 ambulatory JOHN KEANU [facility] Start: 11-29-2023 End: 11-29-2023 ambulatory LALIT Guillermo [facility] Start: 11-23-2023 End: 11-23-2023 ambulatory BIA CAO Not Available Start: 11-11-2023 End: 11-11-2023 ambulatory ELMER PETTIT Not Available Start: 11-08-2023 End: 11-08-2023 ambulatory RIA SNYDER Not Available Start: 11-04-2023 End: 11-04-2023 ambulatory ELMER PETTIT Not Available Start: 10-22-2023 End: 10-22-2023 ambulatory BIA CAO Not Available Start: 09-06-2023 End: 09-06-2023 ambulatory Adelfo Hansen MD Facility:[facility] Start: 10-12-2022 End: 10-12-2022 ambulatory [facility] Start: 09-28-2022 End: 09-28-2022 ambulatory [facility] Start: 05-16-2018 End: 05-16-2018 [facility] Start: 05-06-2018 End: 05-11-2018 Ambulatory LENNY PEDRAZA [facility] Start: 05-02-2018 Patient encounter status Antonietta Johnson MD Work Phone: [facility] Work Phone: Procedures Date Procedure Procedure Detail Performing Clinician Start: 08-29-2024 MEASURE POST VOID RESIDUAL Maria C Kramer MD Work Phone: Start: 08-29-2024 Urnls dip stick/tabl et rgnt auto w/o microscopy Maria C Kramer MD Work Phone: Start: 07-13-2024 Adult depression scr eening assessment Lnida Ochoa Start: 06-14-2024 Follow-up visit Follow-up JOHN JOHNSON Start: 01-07-2024 Adult depression scr eening assessment Yoanna Willian SALES AGENT [employer] DISPATCHER Work Phone: Start: 11-29-2023 Follow-up visit Follow-up LALIT LEACH Start: 04-23-2023 Adult depression scr eening assessment John Johnson MD Work Phone: Start: 05-16-2018 DISCHARGE PATIENT LENNY PEDRAZA Start: 05-16-2018 BEDREST LENNY BRIGGSDAVID PAIZ Start: 05-16-2018 Continuous pulse oximetry LENNY PEDRAZA Start: 05-16-2018 ENCOURAGE DEEP BREAT KELSEA AND COUGHING LENNY PEDRAZA Start: 05-16-2018 NOTIFY PHYSICIAN (SPECIFY) LENNY BRIGGSTANISHA Start: 05-16-2018 NURSING COMMUNICATION M FEDERICO BRIGITTEAMANDATIA Start: 05-16-2018 INITIATE OXYGEN THER APY PROTOCOL LENNY PEDRAZA Start: 05-16-2018 INSERT PERIPHERAL IV MA JORDAN BRIGGSAMANDANILSConnie Start: 05-16-2018 VITAL SIGNS LENNY BRIGGSAMANDAAdolfo PAIZ Start: 05-06-2018 Basic metabolic pane l calcium total LENNY PEDRAZA Start: 05-06-2018 Blood count complete auto&auto difrntl wbc LENNY PEDRAZA Plan of Treatment Date Care Activity Detail Author Start: 02-10-2027 Diabetes Screening Diabetes Screening [facility] Start: 08-29-2025 Adult BMI Screening Adult BMI Screening [facility] Start: 08-29-2025 Tobacco Screening Tobacco Screening [facility] Start: 07-13-2025 Adult BMI Screening Adult BMI Screening [facility] Start: 07-13-2025 Depression Screening Depression Screening [facility] Start: 07-13-2025 Tobacco Screening Tobacco Screening [facility] Start: 03-10-2025 Fall Risk Screening Fall Risk Screening [facility] Start: 02-10-2025 Adult BMI Screening Adult BMI Screening [facility] Start: 01-18-2025 End: 01-18-2025 Patient encounter procedure 01/18/2025 11:00 AM EST Office Visit [facility] [address] [place] [address] Yoanna Dorsey, SALES AGENT PEST CONTROL SERVICE-[employer]EST [employer]HTERS DISPATCHER [address] [place] [phone] [facility] Start: 01-07-2025 Adult BMI Screening Adult BMI Screening [facility] Start: 01-07-2025 Depression Screening Depression Screening [facility] Start: 01-07-2025 Tobacco Screening Tobacco Screening [facility] Start: 12-19-2024 End: 12-19-2024 Patient encounter procedure 12/19/2024 12:45 PM EST Office Visit [facility] [address] [place] [address] A [facility] [place] [address] Maria C Kramer MD [address] [place] [address] [facility] Start: 12-06-2024 Medicare Annual Wellness (AWV) Medicare Annual Wellness (AWV) [facility] Start: 12-06-2024 End: 12-06-2024 Patient encounter procedure 12/06/2024 11:45 AM EST Office Visit [facility] [address] [facility] [address] [place] [address] John Johnson MD [address] [facility] [place] [address] [facility] Start: 11-29-2024 Adult BMI Screening Adult BMI Screening [facility] Start: 11-29-2024 Tobacco Screening Tobacco Screening [facility] Start: 10-01-2024 Fall Risk Screening Fall Risk Screening [facility] Start: 08-29-2024 End: 08-29-2024 Patient encounter procedure 08/29/2024 1:30 PM EDT Off ice Visit [facility] [address] [place] [address] [place] [address] Maria C Kramer MD [address] [place] [address] [facility] Start: 08-28-2024 End: 06-08-2025 MR Brain WO and W contrast IV MRI BRAIN WO/W IVCON Radiology Routine Benign neoplasm of meninges (HCC) Expected: 08/28/2024 (Approximate), Expires: 06/08/2025 [facility] Work Phone: Comment on above: Expected: 08/28/2024 (Approximate), Expi res: 06/08/2025 Start: 07-23-2024 COVID-19 Vaccine ( season) COVID-19 Vaccine () [facility] Start: 07-23-2024 Influenza vaccination [facility] Start: 07-10-2024 End: 07-10-2024 Patient encounter procedure 07/10/2024 11:00 AM EDT Office Visit [facility] [address] [place] [address] Yoanna Dorsey, SALES AGENT PEST CONTROL SERVICE-[facility] [address] [place] [address] [facility] Start: 05-21-2024 Influenza vaccination Influenza Vaccine (#1) [facility] Comment on above: Postponed from 07/23/2023 (Patient Refus ed) Start: 04-23-2024 Depression Screening Depression Screening [facility] Start: 04-11-2024 End: 04-11-2024 Patient encounter procedure 04/11/2024 2:45 PM EDT Off ice Visit [facility] [address] [place] [phone] John Johnson MD [address] [place] [address] [facility] Start: 04-04-2024 End: 04-04-2024 Patient encounter procedure 04/04/2024 10:30 AM EDT Office Visit [facility] [address] [place] [address] Mandi Hoover MD [address] [place] [address] Time Frame: First available [facility] Comment on above: Time Frame: First available Start: 04-03-2024 End: 04-03-2024 Patient encounter procedure 04/03/2024 11:20 AM EDT Office Visit [facility] [address] [facility] [place] [phone] Bia Cao MD [address] [place], [place] [phone] [facility] Start: 02-09-2024 End: 02-09-2024 Patient encounter procedure 02/09/2024 11:00 AM EDT Office Visit [facility] [address] [facility] [place] [phone] Ryan Dallas MD [address] [facility] [place], [place] [phone] [facility] Start: 01-20-2024 End: 01-20-2024 ambulatory 01/20/2024 11:00 AM EST Treatment [facility] [address] [facility] [phone] Elmer Pettit, PT [address] [facility] [address] [facility] Start: 01-18-2024 End: 01-18-2024 ambulatory 01/18/2024 11:30 AM EST Treatment [facility] [address] [place] [phone] Ria Snyder, EDGE SANDER [address] [place] [address] [facility] Start: 01-14-2024 End: 01-14-2024 ambulatory 01/14/2024 1:00 PM EST Treatment [facility] [address] [place] [phone] Ria Snyder, EDGE SANDER [address] [place] [address] [facility] Start: 01-12-2024 End: 01-12-2024 ambulatory 01/12/2024 12:30 PM EST Treatment [facility] [address] [place] [phone] Ria Snyder, EDGE SANDER [address] [place] [address] [facility] Start: 01-11-2024 End: 01-11-2024 Patient encounter procedure 01/11/2024 11:00 AM EST Office Visit [facility] [address] [place] [address] Yoanna Dorsey APRN-FOREST FI[employer] FIGHTERS DISPATCHER [address] [place] [address] [facility] Start: 01-06-2024 End: 01-06-2024 ambulatory [facility] Start: 01-04-2024 End: 01-04-2024 ambulatory 01/04/2024 11:30 AM EST Treatment [facility] [address] [place] [phone] Ria Snyder, EDGE SANDER [address] [place] [address] [facility] Start: 12-31-2023 End: 12-31-2023 ambulatory 12/31/2023 10:00 AM EST Treatment [facility] [address] [place] [phone] Ria Snyder, EDGE SANDER [address] [place] [address] [facility] Start: 12-30-2023 End: 12-30-2023 ambulatory 12/30/2023 11:30 AM EST Treatment [facility] [address] [place] [address] Elmer Pettit, PT [address] [place] [address] [facility] Start: 12-28-2023 End: 12-28-2023 ambulatory 12/28/2023 11:30 AM EST Treatment [facility] [address] [place] [phone] Ria Snyder, EDGE SANDER [address] [place] [address] [facility] Start: 11-22-2023 Advance Directive Discussion Advance Directive Discussion [facility] Start: 11-22-2023 Behavioral Health Screening Behavioral Health Screening [facility] Start: 07-23-2023 COVID-19 Vaccine ( season) COVID-19 Vaccine ( season) [facility] Start: 07-23-2023 Influenza vaccination Influenza Vaccine [facility] Start: 08-21-2021 DTaP,Tdap and Td Vaccines (2 - Td or Tdap) DTaP,Tdap and Td Vaccines (2 - Td or Tdap) [facility] Start: 08-22-2011 Urine microalbumin profile DTaP,Tdap,Td Vaccine (1 - Tdap) [facility] Start: 01-17-2010 Administration of varicella zoster vaccine Zoster (Shingles) Vaccine (2 of 3) [facility] Start: 2005 RSV Vaccine (1 - 1-dose 60+ series) RSV Vaccine (1 - 1-dose 60+ series) [facility] Start: 1995 Shingrix Vaccine (1 of 2) Shingrix Vaccine (1 of 2) Ayana gaxiola [facility] Start: 1963 Adult BMI Follow Up Plan Adult BMI Follow Up Plan [email or web address] Start: 1963 Hepatitis C screening Hepatitis C Screening [facility] Start: 1945 Medicare Annual Wellness Visit Medicare Annual Wellness Visit [email or web address] End: 01-07-2025 CBC W Auto Differential panel - Blood CBC auto differential Lab Routine Essential tremor Balance problem Polyneuropathy 1 Occurrences starting 01/07/2024 until 01/07/2025 [email or web address] Comment on above: 1 Occurrences starting 01/07/2024 until 01/07/2025 End: 01-07-2025 Cyanocobalamin vitamin b-12 Vitamin B12 Lab Routine Balance problem Polyneuropathy 1 Occurrences starting 01/07/2024 until 01/07/2025 [email or web address] Comment on above: 1 Occurrences starting 01/07/2024 until 01/07/2025 End: 01-07-2025 Ferritin [Mass/volume] in Serum or Plasma Ferritin Lab Routine Polyneuropathy Abnormal level of blood mineral 1 Occurrences starting 01/07/2024 until 01/07/2025 [email or web address] Comment on above: 1 Occurrences starting 01/07/2024 until 01/07/2025 End: 01-07-2025 Folate [Mass/volume] in Serum or Plasma Folate Serum Lab Routine Balance problem Polyneuropathy 1 Occurrences starting 01/07/2024 until 01/07/2025 [email or web address] Comment on above: 1 Occurrences starting 01/07/2024 until 01/07/2025 End: 01-07-2025 Hemoglobin A1c/Hemoglobin.total in Blood Hemoglobin A1c Lab Routine Balance problem Polyneuropathy Prediabetes 1 Occurrences starting 01/07/2024 until 01/07/2025 [email or web address] Comment on above: 1 Occurrences starting 01/07/2024 until 01/07/2025 End: 01-07-2025 Homocysteine total Homocysteine total Lab Routine Balance problem Polyneuropathy Essential (primary) hypertension 1 Occurrences starting 01/07/2024 until 01/07/2025 [email or web address] Comment on above: 1 Occurrences starting 01/07/2024 until 01/07/2025 End: 01-07-2025 Immunoelectrophoresis for Therapy Monitoring Immunoelectrophoresis for Therapy Monitoring Lab Routine Balance problem Polyneuropathy 1 Occurrences starting 01/07/2024 until 01/07/2025 [facility] on above: 1 Occurrences starting 01/07/2024 until 01/07/2025 End: 01-07-2025 Iron and TIBC Iron and TIBC Lab Routine Essential tremor Balance problem Polyneuropathy Abnormal level of blood mineral 1 Occurrences starting 01/07/2024 until 01/07/2025 [facility] Comment on above: 1 Occurrences starting 01/07/2024 until 01/07/2025 End: 01-07-2025 Methylenetetrahydrofolate reductase Methylenetetrahydrofolate reductase Lab Routine Balance problem Polyneuropathy 1 Occurrences starting 01/07/2024 until 01/07/2025 [facility] Comment on above: 1 Occurrences starting 01/07/2024 until 01/07/2025 End: 01-07-2025 Methylmalonic acid screen Methylmalonic acid screen La b Routine Balance problem Polyneuropathy 1 Occurrences starting 01/07/2024 until 01/07/2025 [facility] Work Phone: Comment on above: 1 Occurrences starting 01/07/2024 until 01/07/2025 End: 01-07-2025 Protein electrophoresis, serum Protein electrophoresis, serum Lab Routine Balance problem Polyneuropathy 1 Occurrences starting 01/07/2024 until 01/07/2025 [facility] Comment on above: 1 Occurrences starting 01/07/2024 until 01/07/2025 End: 01-07-2025 Thyroid profile includes TSH FT4 Thyroid profile includes TSH FT4 Lab Routine Balance problem Polyneuropathy Prediabetes 1 Occurrences starting 01/07/2024 until 01/07/2025 [facility] Comment on above: 1 Occurrences starting 01/07/2024 until 01/07/2025 Immunizations Immunization Date Immunization Notes Care Provider [facility] 03-12-2021 COVID-19, mRNA, LNP- S, PF, 100mcg/0.5mL Dose John Johnson MD Work Phone: [facility] 03-11-2021 Moderna SARS-CoV-2 Vaccination Ria Snyder PTA Work Phone: [facility] 02-12-2021 COVID-19, mRNA, LNP- S, PF, 100mcg/0.5mL Dose John Johnson MD Work Phone: [facility] 02-11-2021 [facility] SARS-CoV-2 Vaccination Ria Snyder EDGE SANDER Work Phone: [facility] 11-12-2020 pneumococcal conjuga te vaccine, 13 valent John Johnson MD Work Phone: [facility] 09-17-2020 influenza, high dose seasonal, preservative-free John Johnson MD Work Phone: [facility] 09-17-2020 Seasonal, quadrivale nt, recombinant, injectable influenza vaccine, preservative free John Johnson MD Work Phone: [facility] 09-17-2020 influenza virus vacc ine, unspecified formulation John oJhnson MD Work Phone: [facility] 08-30-2019 Seasonal, quadrivale nt, recombinant, injectable influenza vaccine, preservative free John Johnson MD Work Phone: [facility] 08-29-2018 influenza, injectabl e, quadrivalent, preservative free John Johnson MD Work Phone: [facility] 08-22-2015 influenza, seasonal, injectable, preservative free Ria Snyder EDGE SANDER Work Phone: [facility] 08-13-2015 pneumococcal polysaccharide vaccine, 23 valent Ria Snyder EDGE SANDER Work Phone: [facility] 08-21-2011 tetanus and diphther ia toxoids, adsorbed, preservative free, for adult use (5 Lf of tetanus toxoid and 2 Lf of diphtheria toxoid) John Johnson MD Work Phone: [facility] 11-22-2009 zoster vaccine, live Juan Snyder EDGE SANDER Work Phone: [facility] 11-22-2009 zoster vaccine, unspecified formulation John Johnson MD Work Phone: [facility] Payers Date Payer Category Payer Private Health Insurance 2021 Medicare [id number] 2021 Medicare [id number] 2012 Medicare [id number] 1945 Unknown [id number] 2.16. 840.1.407861.3.579.2.175 1945 Unknown [id number] 2.16. 840.1.064915.3.579.2.175 1945 Unknown [id number] 2.16.84 0.1.523151.3.579.2.1286 1945 Unknown [id number] 2.16.8 40.1.962396.3.579.2.1286 1945 Unknown [id number] 2.16.8 40.1.284283.3.579.2.1286 1945 Unknown [id number] 2.16.8 40.1.631084.3.579.2.1286 1945 Unknown [id number] 2.16.8 40.1.536458.3.579.2.1286 1945 Unknown [id number] 2.16.8 40.1.664740.3.579.2.1286 1945 Unknown [id number] 2.16.8 40.1.285724.3.579.2.1286 1945 Unknown [id number] 2.16.8 40.1.349828.3.579.2.1286 1945 Unknown [id number] 2.16.84 0.1.329926.3.579.2.1286 1945 Unknown [id number] 2.16.84 0.1.049977.3.579.2.1259 -08-1945 Unknown [id number] 2.16.84 0.1.049476.3.579.2.1259 -08-1945 Unknown [id number] 2.16.84 0.1.330251.3.579.2.1259 -08-1945 Unknown [id number] 2.16.84 0.1.226626.3.579.2.1259 -08-1945 Unknown [id number] 2.16.84 0.1.717221.3.579.2.1259 -08-194 Unknown [id number] 2.16.84 0.1.757202.3.579.2.1259 -08-1945 Unknown [id number] 2.16.84 0.1.045372.3.579.2.1259 -08-1945 Unknown [id number] 2.16.84 0.1.683324.3.579.2.1259 -08-194 Unknown [id number] 2.16.84 0.1.598173.3.579.2.1259 -08-1945 Unknown [id number] 2.16.84 0.1.077621.3.579.2.1259 -08-1945 Unknown [id number] 2.16.84 0.1.562365.3.579.2.1259 -08-1945 Unknown [id number] 2.16.84 0.1.954310.3.579.2.1259 -08-1945 Unknown [id number] 2.16.84 0.1.223183.3.579.2.1259 -08-1945 Unknown [id number] 2.16.84 0.1.342829.3.579.2.1259 -08-1945 Unknown [id number] 2.16.84 0.1.276380.3.579.2.1259 -08-1945 Unknown [id number] 2.16.84 0.1.420058.3.579.2.1259 -08-1945 Unknown [id number] 2.16.84 0.1.552680.3.579.2.1259 -08-1945 Unknown [id number] 2.16.84 0.1.569551.3.579.2.1259 -08-1945 Unknown [id number] 2.16.84 0.1.489180.3.579.2.1259 -081945 Unknown [id number] 2.16.84 0.1.288763.3.579.2.1259 -08-194 Unknown [id number] 2.16.84 0.1.743926.3.579.2.1259 -08-194 Unknown [id number] 2.16.84 0.1.111096.3.579.2.1259 -08-194 Unknown [id number] 2.16.84 0.1.193668.3.579.2.1259 -1945 Unknown [id number] 2.16.84 0.1.508685.3.579.2.1259 -08-194 Unknown [id number] 2.16.840 .1.461348.3.579.2.1259 -194 Unknown [id number] .840 .1.121178.3.579.2.1259 -194 Unknown [id number] 2.16.840 .1.778952.3.579.2.1259 -194 Unknown [id number] 2.840 .1.330753.3.579.2.1259 -1945 Unknown [id number] 2.16840 .1.049486.3.579.2.1259 -194 Unknown [id number] 2.16 840.1.399770.3.579.2.196 1945 Unknown [id number] 2.16 840.1.388372.3.579.2.196 194 Unknown [id number] 2.16. 840.1.180936.3.579.2.196 1945 Unknown [id number] 2.16. 840.1.081262.3.579.2.196 1945 Unknown [id number] 2.16. 840.1.151379.3.579.2.196 1945 Unknown [id number] 2.16. 840.1.191732.3.579.2.196 1945 Unknown [id number] 2.16. 840.1.796532.3.579.2.196 1945 Unknown [id number] 2.16.8 40.1.975287.3.579.2.1286 1945 Unknown [id number] 2.16.8 40.1.740584.3.579.2.1286 1945 Unknown [id number] 2.16.8 40.1.993060.3.579.2.6 1945 Unknown [id number] 2.16.8 40.1.978804.3.579.2.1286 1945 Unknown [id number] 2.16.8 40.1.998109.3.579.2.1286 1945 Unknown [id number] 2.16.8 40.1.416242.3.579.2.1286 1945 Unknown [id number] 2.16.8 40.1.241755.3.579.2.1286 Social History Date Type Detail Facility Start: 01-27-2018 End: 11-29-2023 Tobacco smoking status NHIS Never smoked tobacco [facility] History of tobacco use Passive smoker [facility] Start: 01-27-2018 End: 11-29-2023 Tobacco use and exposure Smokeless tobacco non-user [facility] Start: 11-29-2023 End: 08-29-2024 Alcohol intake Current non-drinker of alcohol (finding) [facility] Start: 12-03-2020 End: 11-29-2023 Alcohol intake [facility] Start: 12-03-2020 End: 11-29-2023 Tobacco use panel [facility] Adolescent depressio n screening assessment 0 [facility] Start: 1945 Sex Assigned At Female [facility] Start: 05-22-2021 Gender identity Identifies as female gender (finding) [facility] Start: 05-22-2021 Sexual orientation Heterosexual (finding) [facility] Start: 12-07-2023 Alcohol intake Current drinker of alcohol (finding) [facility] Start: 05-04-2023 Alcohol Comment caffeine: occasional [facility] Start: 1945 Sex Assigned At Not on file [facility] Medical Equipment Procedure Code Equipment Code Equipment Origin al Text Equipment Identifier Dates Patch Dura 1x1in Drmtrx-[place] + Clgn Rgnrt Membr Strl - [id number] Start: 07-03-2021 Goals Date Patient Goal Desired Activity /State Personal health goal Comment on above: Formatting of this n ote might be different from the original. Evaluation of progress towards goal: safe transition from hospital to home with support of her friends/neighbors Clinical Notes 12-13-2023 to 08-29-2024 Maria C Kramer MD - 08/29/2024 1:30 PM EDTTelephone Encounter - Linda Ochoa - 08/22/2024 2:36 PM EDTTelephone Encounter - Linda Nick - 08/22/2024 2:36 PM EDT Note Date & Type Note Facility 08-29-2024 History of Presen t illness Narrative Images from the original note were not included. [address] [place] [address] A [facility] [address] Patient: Angela Ruth Date of : 1945 Encounter Date: 08/29/2024 History of Present Illness: The patient is a 79 y.o. female, a new patient, and is here for further evaluation. She has had progressive issues with urinary urge incontinence over the past 8-9 months. Been treated with oxybutynin extended release 10 mg. That did help some. Consumes 2 cups of iced tea per day as well as 1 caffeinated soda per day. Does have constipation. Does not use anything for this currently. Prior hysterectomy. No prior radiation. Additionally has recurrent urine infections for which he has been treated multiple times in the past year. She had E coli but culture in June as well as March 2024. Also wth 4 prior surgeries on L1-L5. PVR minimal. Chief Complaint: Summary of old records: Urinalysis today: Recent Labs 08/29/24 1355 EXTPOCURBS Negative EXTPOCUKET Negative EXTPOCUPRO Negative EXTPOCUNIT Negative EXTPOCUBLD Negative EXTPOCUPH 7.0 EXTPOCULEE Negative Last BUN and creatinine: Lab Results Component Value Date BUN 22 02/11/2024 Lab Results Component Value Date CREATININE 1.01 (H) 02/11/2024 Last PSA: No results found for: PSA No results found for: PROSTATICSP Additional Lab/Culture results: None Imaging Reviewed during this Office Visit: None (Results were independently reviewed by physician and radiology report verified) Past Medical, Family, and Social History Update: The following portions of the patient's history were reviewed and updated as appropriate: allergies, current medications, past family history, past medical history, past social history, past surgical history and problem list. Past Medical History: Diagnosis Date Age related osteoporosis Allergic 1951 Allergic rhinitis 1951 Arthritis Asthma Atrophy of vocal cord Basal cell carcinoma of skin Benign familial tremor BPPV (benign paroxysmal positional vertigo) Brain tumor (benign) ([facility]) Breast disorder 4 biopsies Bronchitis 01/01/2017 Cancer ([facility]) Basal cell Carpal tunnel syndrome Cataract [...] Scoliosis Shingles 2008 Skin cancer Subjective tinnitus Syncope Varicella 1953 Vertigo Visual impairment Glasses Past Surgical History: Procedure Laterality Date ADENOIDECTOMY 1952 APPENDECTOMY 1965 ARM SURGERY 2019. BACK SURGERY Upper Back Surgery BREAST BIOPSY 1979, 1999 BREAST SURGERY 1981 2002 Biopsy four times CHOLECYSTECTOMY 2001 COLONOSCOPY w/ bx N/A 07/07/2018 Performed by Lalit Leach MD at [facility] ENDOSCOPY COSMETIC SURGERY 1984 DISCECTOMY 1989 Partial L4-5 EGD 2002 EYE SURGERY 2015 FOOT SURGERY 2009 Reattachment of tendon left foot with bone graft HIP SURGERY 2003 Excision of bursa left hip HYSTERECTOMY 1983 INJECTION BLOCK EPIDURAL STEROID LUMBAR/SACRAL Left L 5,1 NR Left 12/20/2020 Performed by Shubham Clifton MD at [facility] INJECTION BLOCK NERVE MEDIAL BRANCH right C 4/5,5/6 Right 05/22/2022 Performed by Shubham Clifton MD at [facility] INJECTION BLOCK NERVE MEDIAL BRANCH right C 4/5,5/6 Right 04/17/2022 Performed by Shubham Clifton MD at [facility] CAUDAL EPIDURAL WITH CATHETER, STEROID N/A 03/07/2018 Performed by Shubham Clifton MD at [facility] LARGE JOINT BURSA: bilat hip Bilateral 12/10/2017 Performed by Shubham Clifton MD at [facility] MEDIAL BRANCH NERVE BLOCK Bilateral L 4/5, 5/1 Bilateral 06/28/2017 Performed by Shubham Clifton MD at [facility] MEDIAL BRANCH NERVE BLOCK Right L 2/3, 3/4 Right 12/08/2019 Performed by Shubham Clifton MD at [facility] MEDIAL BRANCH NERVE BLOCK RIGHT L23 34 Right 01/19/2020 Performed by Shubham Clifton MD at [facility] INJECTION SI JOINT Bilateral 04/09/2017 Performed by Shubham Clifton MD at [facility] INJECTION SI JOINT Bilateral SI Joint Bilateral 05/31/2020 Performed by Shubham Clifton MD at [facility] SI JOINT Left SI JOint Left 01/06/2019 Performed by Shubham Clifton MD at [facility] INJECTION SI JOINT Right SI Joint Right 06/09/2019 Performed by Shubham Clifton MD at [facility] INJECTION SPINE TRANSFORAMINAL Left L 4, 5 NR Left 09/24/2017 Performed by Shubham Clifton MD at [facility] INJECTION SPINE TRANSFORAMINAL Left L 5,1 Nroot Left 01/08/2023 Performed by Shubham Clifton MD at [facility] INJECTION SPINE TRANSFORAMINAL Right L 5,1 Nroot Right 11/27/2022 Performed by Shubham Clifton MD at [facility] STEROID EPI 1 WITH SEDATION Left 5,1 NR Left 05/08/2019 Performed by Shubham Clifton MD at [facility] KNEE ARTHROSCOPY 2010, 2013 KNEE SURGERY 2010 2013 Arthroscopy bilateral/repair meniscus right X2, left X1 LAMINECTOMY LUMBAR FORAMENOTOMY MULTI LEVEL L1-2 RIGHT/L2-3 BILATERAL/LUMBAR DRAIN INSERTION N/A 07/03/2021 Performed by Ileana Cortes MD at [facility] LAPAROTOMY OOPHERECTOMY Bilateral 1984 LUMBAR DISCECTOMY LUMBAR FUSION 2010 L3-5 LUMBAR LAMINECTOMY MICRO LUMBAR DISCECTOMY L5-S1/ FORAMINOTOMY L5-S1 Left 01/14/2017 Performed by Ileana Cortes MD at [facility] OOPHORECTOMY 1982 OTHER SURGICAL HISTORY Knee Arthroscopy With Medial Meniscus Repair OTHER SURGICAL HISTORY Spinal Diskectomy RADIO FREQUENCY ABLATION Left L 4/5, 5/1 Left 12/02/2018 Performed by Shubham Clifton MD at [facility] RADIO FREQUENCY ABLATION Left L 4/5, 5/1 Left 07/30/2017 Performed by Shubham Clifton MD at [facility] RADIO FREQUENCY ABLATION Left SI joint Left 03/31/2019 Performed by Shubham Clifton MD at [facility] RADIO FREQUENCY ABLATION Right L2/3, 3/4 Right 03/29/2020 Performed by Shubham Clifton MD at [facility] RADIOFREQUENCY ABLATION SPINAL Left Si joint Left 05/07/2017 Performed by Shubham Clifton MD at [facility] RADIOFREQUENCY ABLATION SPINAL Right C 4/5,5/6 Right 06/26/2022 Performed by Shubham Clifton MD at [facility] RADIOFREQUENCY ABLATION SPINAL RIGHT SI JOINT Right 05/21/2017 Performed by Shubham Clifton MD at [facility] RELEASE CARPAL TUNNEL Left 11/04/2021 Performed by Ileana Cortes MD at [facility] SHOULDER SURGERY 2011 Right rotator cuff SKIN BIOPSY 1999 SPINE SURGERY 1989,2006,2017, 2020 STEROID INJECTION KNEE Right 04/2017 SYNVISC KNEE INJECTION TONSILLECTOMY AND ADENOIDECTOMY TRIGGER FINGER RELEASE Right x2 TRIGGER FINGER RELEASE Right 04/2018 2 fingers WRIST SURGERY Right [place] Family History Problem Relation Age of Onset Breast cancer Mother Heart disease Mother Anesthesia problems Mother Mother with N/V Colon cancer Mother 72 Hypertension Mother Neck Problems Father Cancer Father Back Problems Father COPD Father Arthritis Father Breast cancer Maternal Aunt Vision loss Maternal Aunt Breast cancer Maternal Aunt Breast cancer Maternal Aunt Breast cancer Maternal Aunt Breast cancer Maternal Aunt Early Maternal Aunt Colon cancer Maternal Uncle Heart disease Maternal Uncle Heart disease Maternal Uncle Heart disease Maternal Uncle Heart disease Maternal Uncle Alcohol abuse Paternal Uncle COPD Paternal Uncle COPD Paternal Uncle Breast cancer Maternal Grandmother Ovarian cancer Maternal Grandmother Uterine cancer Maternal Grandmother Heart disease Maternal Grandfather Diabetes Paternal Grandmother Memory loss Paternal Grandmother Stroke Paternal Grandmother Arthritis Paternal Grandmother Stroke Paternal Grandfather Diabetes Paternal Grandfather Bleeding Disorder Neg Hx Clotting disorder Neg Hx Current Outpatient Medications Medication Sig Dispense Refill acetaminophen (TYLENOL EXTRA STRENGTH) 500 mg tablet Take 2 tablets (1,000 mg total) by mouth every 6 (six) hours as needed for pain. albuterol (PROVENTIL HFA;VENTOLIN HFA) 90 mcg/actuation inhaler Inhale 2 puffs every 4 (four) hours as needed for wheezing or shortness of breath. PRO AIR alendronate (FOSAMAX) 70 mg tablet Take 1 tablet (70 mg total) by mouth every 7 days. amitriptyline (ELAVIL) 50 mg tablet Take 1 tablet (50 mg total) by mouth nightly. 90 tablet 3 ascorbic acid (VITAMIN C) 500 mg tablet Take 2 tablets (1,000 mg total) by mouth in the morning. aspirin 81 mg Take 1 tablet (81 mg total) by mouth in the morning. vfnnqyq-wusoihihepnms-qfwiinqt (EXCEDRIN MIGRAINE) 250-250-65 mg per tablet Take 1 tablet by mouth every 6 (six) hours as needed for headaches. atorvastatin (LIPITOR) 40 mg tablet Take 1 tablet (40 mg total) by mouth in the morning. buprenorphine (BUTRANS) 7.5 mcg/hour patch weekly Place 1 patch on the skin once a week. calcium carbonate-vitamin D3 600 mg(1,500mg) -800 units tablet Take 600 mg by mouth nightly Indications: prevention of vitamin D deficiency. carvediloL (COREG) 25 mg tablet Take 1 tablet (25 mg total) by mouth in the morning and 1 tablet (25 mg total) before bedtime. 180 tablet 3 cholecalciferol, vitamin D3, (VITAMIN D3) 1,000 units tablet 1 tablet (1,000 Units total) before breakfast Indications: low vitamin D levels. escitalopram (LEXAPRO) 20 mg tablet Take 1 tablet (20 mg total) by mouth daily with dinner Indications: major depressive disorder. famotidine (PEPCID) 20 mg tablet Take 1 tablet (20 mg total) by mouth nightly. 90 tablet 3 fenofibrate (LOFIBRA) 160 mg tablet Take 1 tablet (160 mg total) by mouth nightly. ferrous sulfate (FeroSuL) 325 (65 FE) mg tablet Take 1 tablet (325 mg total) by mouth in the morning and 1 tablet (325 mg total) in the evening. Take with meals. TAKE 1 TABLET BY MOUTH EVERY MORNING AND 1 TABLET EVERY EVENING WITH MEALS. 60 tablet 2 fexofenadine (RALPH) 180 mg tablet Take 1 tablet (180 mg total) by mouth daily with breakfast. hydrALAZINE (APRESOLINE) 100 mg tablet Take one twice a day may take an additional 50mg daily if Systolic BP is greater than 170 (Patient taking differently: Take one a day may take an additional 50mg daily if Systolic BP is greater than 170) 60 tablet 11 L.acidoph/B.animalis/B.longum (FLORAJEN DIGESTION ORAL) Take 1 tablet by mouth in the morning. levothyroxine (SYNTHROID, LEVOTHROID) 150 MCG tablet 6 days a week 90 tablet 1 lisinopril-hydroCHLOROthiazide (ZESTORETIC) 20-12.5 mg per tablet Take 1 tablet by mouth in the morning. 90 tablet 3 magnesium 250 mg tablet Take 2 tablets (500 mg total) by mouth in the morning. Indications: for migraine prevention. At supper time. methocarbamoL (ROBAXIN) 500 mg tablet Take 2 tablets (1,000 mg total) by mouth. omeprazole (PriLOSEC) 40 mg capsule Take 1 capsule (40 mg total) by mouth in the morning. 180 capsule 3 oxybutynin XL (DITROPAN-XL) 10 mg 24 hr tablet Take 1 tablet (10 mg total) by mouth daily with breakfast. therapeutic multivitamin (THERAGRAN) tablet Take 1 tablet by mouth daily with dinner. UBRELVY 100 mg tablet Take 100 mg by mouth once as needed (migraine) for up to 1 dose. 16 tablet 12 zafirlukast (ACCOLATE) 20 mg tablet Take 1 tablet (20 mg total) by mouth in the morning and 1 tablet (20 mg total) before bedtime. cyanocobalamin (VITAMIN B12) 1,000 mcg tablet, sublingual Place 1 tablet (1,000 mcg total) under the tongue in the morning. 30 tablet 11 No current facility-administered medications for this visit. (All medications reviewed and updated by provider since last office visit or hospitalization) Allergies: Indocin [indomethacin], Lincocin [lincomycin], Lincosamides, Adhesive, Eggshell membrane, Influenza virus vaccines, Sulfa (sulfonamide antibiotics), Other, Poultry, Sulfamethoxazole-trimethoprim, Aspartame, Augmentin [amoxicillin-pot clavulanate], Clavulanic acid, Clemizole, Daypro [oxaprozin], and Penicillins Tobacco History: Social History Tobacco Use Smoking Status Never Passive exposure: Past Smokeless Tobacco Never (If patient a smoker, smoking cessation counseling offered) Social History: Social History Substance and Sexual Activity Alcohol Use No Review of Systems: Constitutional: Normal activity and energy. Patient denies change in appetite, weight loss or gain, malaise (depression), chills, fever, or diaphoresis (sweating). Eyes: Patient denies vision changes or diplopia (double vision). Ears, Nose, Nose and Throat: Hearing Loss and Hoarseness Respiratory: Cough Cardiovascular: Patient denies chest pain, palpitations, and shortness of breath. Gastrointestinal: Abdominal pain and Constipation (chronic) Musculoskeletal: Joint pain/stiffness, Weakness, and Backache Neurologic: Weakness Integument: Patient denies rashes and non-healing lesions. Psychiatric: Patient denies increased nervousness, mood changes, or depression. Endocrine: Thyroid trouble Blood Disorders: Patient denies anemia, easy bruising, and easy bleeding. Physical Exam: BP 125/68 Pulse 87 Ht 160 cm (5' 3 ) Wt 67.1 kg (148 lb) BMI 26.22 kg/m Assessment and Plan: Angela was seen today for urinary frequency. Diagnoses and all orders for this visit: Urge incontinence - [facility] - BETTE Carvajal - POCT Urinalysis Auto, W/O Microscopy - Measure post void residual Problem List Genitourinary Urge incontinence Overview 08/29/2024: Urge incontinence. Multifactorial including her back issues, constipation, caffeine consumption. Recommended decreasing caffeine as well as addressing constipation with vqai-css-zegucyc agents. If no improvement can add beta 3 agonist Relevant Orders POCT Urinalysis Auto, W/O Microscopy (Completed) Measure post void residual (Completed) Follow-up: About 3-4 months Maria C Kramer MD This note was created with the assistance of a speech recognition program. While intending to generate a timely document that accurately reflects the content of the visit, no guarantee can be provided that every grammatical or spelling mistake has been or will be identified or corrected. Thank you for your understanding. documented in this encounter [facility] 08-22-2024 Miscellaneous Notes Medication Refill request: Medication Name and Strength:FeroSuL 325 mg (65 mg iron) tablet Current dose & Frequency: take 1 tablet by mouth every morning and 1 tablet every evening with meals 30 day or 90 day supply preferred: Pharmacy Name: [facility] [address] [place] [id number] Hours: Not open 24 hours Request was made by: Patient documented in this encounter [facility] 08-22-2024 Telephone encounter Note Medication Refill request: Medication Name and Strength:FeroSuL 325 mg (65 mg iron) tablet Current dose & Frequency: take 1 tablet by mouth every morning and 1 tablet every evening with meals 30 day or 90 day supply preferred: Pharmacy Name: [address] [place] [id number] Hours: Not open 24 hours Request was made by: Patient [facility] 04-04-2024 Instructions Anson Ennis MD - 04/04/2024 12:35 PM EDT - obtain follow up MRI brain wwo in 6 months - please follow up with your projection engineer (we do not think the etiology of your hearing loss is due to your meningioma) - our team will notify Dr. Bia Cao regarding these findings; we recommend investigating other etiologies of imbalance in Mrs. Ruth documented in this encounter [facility] 04-04-2024 Note HNO ID: [id number] Author: MANDI HOOVER MD Service: ? Author Type: Physician Type: Progress Notes Filed: 04/05/2024 17:50 Note Text: SECTION OF SKULL BASE SURGERY MINIMALLY INVASIVE CRANIAL BASE AND PITUITARY SURGERY PROGRAM Jessica Caro [facility] [place], [facility] CC: Patient Care Team: Bia Cao as PCP ([facility]) Ileana Cortes MD as NI Referring Team [...] ([place]/West side preference). - follow up with projection engineer for hearing loss which is unrelated to [...] Patient is accompanied by her granddaughter (her courier delivery driver) and great grand daughter). 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 The patient takes ASA 81 mg daily for cardioprotection per her PCP. The patient has been using a cane for the last 5-6 years. The patient reports that ~6 weeks ago, she walked into her garage door and fell. The patient has not seen an projection engineer or a vestibular therapist. Past Medical History: [...] mg (VYTORIN) 10-40 (more content not included)... [facility] 04-04-2024 Nurse Note Additional intake questions: Has the patient had fever, nausea, vomiting, diarrhea, constipation, fatigue for > 1 week? No Does the patient have a decreased appetite? No Does patient want to see a Mammographer? No (yes to any of above refer patient to schedulers for dietitian appointment) ) Does patient have any new or increased numbness or tingling of extremities? No Is patient interested in fertility information? No Does patient need any prescription refills? No Does patient have an advanced directive in place? Yes, no copy found in [facility] Patient referred to [facility] Electronically Signed By: Josette Sheppard MA [facility] 04-04-2024 Nurse Note Additional intake questions: Has the patient had fever, nausea, vomiting, diarrhea, constipation, fatigue for > 1 week? No Does the patient have a decreased appetite? No Does patient want to see a Mammographer? No (yes to any of above refer patient to schedulers for dietitian appointment) ) Does patient have any new or increased numbness or tingling of extremities? No Is patient interested in fertility information? No Does patient need any prescription refills? No Does patient have an advanced directive in place? Yes, no copy found in [facility] Patient referred to [facility] Electronically Signed By: Josette Sheppard MA documented in this encounter [facility] 04-04-2024 History of Presen t illness Narrative Images from the original note were not included. SECTION OF SKULL BASE SURGERY MINIMALLY INVASIVE CRANIAL BASE & PITUITARY SURGERY PROGRAM Jessica Caro [facility] [place], [facility] CC: Patient Care Team: Bia Cao as PCP ([facility]) Ileana Cortes MD as NI Referring Team [...] our skull base team advance practice providers ([place] side preference). - follow up with projection engineer for hearing loss which is unrelated to [...] Patient is accompanied by her granddaughter (her courier delivery driver) and great grand daughter). 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 The patient takes ASA 81 mg daily for cardioprotection per her PCP. The patient has been using a cane for the last 5-6 years. The patient reports that ~6 weeks ago, she walked into her garage door and fell. The patient has not seen an projection engineer or a vestibular therapist. 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 documented in this encounter [facility] 03-28-2024 Telephone encounter Note Called patient to schedule an appointment. No ans/left message to call the office back. Appointment scheduled: 04/04/2024 10:30 AM (Arrive by 10:15 AM) Mandi Hoover MD [facility] RAMAN Alonso [facility] 03-28-2024 Miscellaneous Notes Called patient to schedule an appointment. No ans/left message to call the office back. Appointment scheduled: 04/04/2024 10:30 AM (Arrive by 10:15 AM) Mandi Hoover MD [facility] Etelvina Trujillo, PAC Time Frame: First available Provider: Kiko Landrum Soni Referring: Ileana Cortes MD Images to be requested from [facility] Dx: Right CPA mass Patient: Angela Ruth Address: Angela Ruth [phone] [place] [address] [facility] [address] Per Triage: HISTORY OF PRESENT ILLNESS Angela [...] 28, 2024 Referral source: Ileana Cortes MD ([facility]) Reason for visit: consideration of gamma knife for 1.2 cm enhancing lesion at right cerebelloponitine angle with leading differential including vestibular schwannoma and meningioma External records: Sent with referral and pulled from [facility] Triage: Required, forwarded to [facility] by telephone encounter sent to [facility] Scheduling Triage. Financial clearance: Not required to schedule documented in this encounter [facility] 03-28-2024 Telephone encounter Note Time Frame: First available Provider: Kiko Landrum Soni Referring: Ileana Cortes MD Images to be requested from [facility] Dx: Right CPA mass Patient: Angela Ruth Address: Angela Ruth [id number] [place] [address] [place] [address] Per Triage: HISTORY OF PRESENT ILLNESS Angela [...] extracranial soft tissues are unremarkable. Vanesa Morgan APRN.[employer]TER[employer] DISPATCHER March 28, [address] [facility] 03-24-2024 Telephone encounter Note Referral source: Ileana Cortes MD ([facility]) Reason for visit: consideration of gamma knife for 1.2 cm enhancing lesion at right cerebelloponitine angle with leading differential including vestibular schwannoma and meningioma External records: Sent with referral and pulled from [facility] Triage: Required, forwarded to [facility] by telephone encounter sent to [facility] Scheduling Triage. Financial clearance: Not required to schedule [facility] 02-24-2024 History of Presen t illness Narrative [...] Breast disorder 4 biopsies Bronchitis 01/01/2017 Cancer ([facility]) Basal cell Carpal tunnel syndrome Cataract [...] 07/07/2018 Performed by Lalit Leach MD at [facility] ENDOSCOPY COSMETIC SURGERY 1984 DISCECTOMY 1989 Partial L4-5 EGD 2001 EYE SURGERY 2015 FOOT SURGERY 2009 Reattachment of tendon left foot with bone graft HIP SURGERY 2003 Excision of bursa left hip HYSTERECTOMY 1983 INJECTION BLOCK EPIDURAL STEROID LUMBAR/SACRAL Left L 5,1 NR Left 12/20/2020 Performed by Shubham Clifton MD at [facility] INJECTION BLOCK NERVE MEDIAL BRANCH right C 4/5,5/6 Right 05/22/2022 Performed by Shubham Clifton MD at [facility] INJECTION BLOCK NERVE MEDIAL BRANCH right C 4/5,5/6 Right 04/17/2022 Performed by Shubham Clifton MD at [facility] INJECTION CAUDAL EPIDURAL WITH CATHETER, STEROID N/A 03/07/2018 Performed by Shubham Clifton MD at [facility] LARGE JOINT BURSA: bilat hip Bilateral 12/10/2017 Performed by Shubham Clifton MD at [facility] INJECTION MEDIAL BRANCH NERVE BLOCK Bilateral L 4/5, 5/1 Bilateral 06/28/2017 Performed by Shubham Clifton MD at [facility] INJECTION MEDIAL BRANCH NERVE BLOCK Right L 2/3, 3/4 Right 12/08/2019 Performed by Shubham Clifton MD at [facility] INJECTION MEDIAL BRANCH NERVE BLOCK RIGHT L23 34 Right 01/19/2020 Performed by Shubham Clifton MD at [facility] INJECTION SI JOINT Bilateral 04/09/2017 Performed by Shubham Clifton MD at [facility] INJECTION SI JOINT Bilateral SI Joint Bilateral 05/31/2020 Performed by Shubham Clifton MD at [facility] INJECTION SI JOINT Left SI JOint Left 01/06/2019 Performed by Shubham Clifton MD at [facility] INJECTION SI JOINT Right SI Joint Right 06/09/2019 Performed by Shubham Clifton MD at [facility] INJECTION SPINE TRANSFORAMINAL Left L 4, 5 NR Left 09/24/2017 Performed by Shubham Clifton MD at [facility] INJECTION SPINE TRANSFORAMINAL Left L 5,1 Nroot Left 01/08/2023 Performed by Shubham Clifton MD at [facility] INJECTION SPINE TRANSFORAMINAL Right L 5,1 Nroot Right 11/27/2022 Performed by Shubham Clifton MD at [facility] STEROID EPI 1 WITH SEDATION Left 5,1 NR Left 05/08/2019 Performed by Shubham Clifton MD at [facility] KNEE ARTHROSCOPY 2010, 2013 KNEE SURGERY 2010 2013 Arthroscopy bilateral/repair meniscus right X2, left X1 LAMINECTOMY LUMBAR FORAMENOTOMY MULTI LEVEL L1-2 RIGHT/L2-3 BILATERAL/LUMBAR DRAIN INSERTION N/A 07/03/2021 Performed by Ileana Cortes MD at [facility] LAPAROTOMY OOPHERECTOMY Bilateral 1984 LUMBAR DISCECTOMY LUMBAR FUSION 2010 L3-5 LUMBAR LAMINECTOMY MICRO LUMBAR DISCECTOMY L5-S1/ FORAMINOTOMY L5-S1 Left 01/14/2017 Performed by Ileana Cortes MD at [facility] OOPHORECTOMY 1982 OTHER SURGICAL HISTORY Knee Arthroscopy With Medial Meniscus Repair OTHER SURGICAL HISTORY Spinal Diskectomy RADIO FREQUENCY ABLATION Left L 4/5, 5/1 Left 12/02/2018 Performed by Shubham Clifton MD at [facility] RADIO FREQUENCY ABLATION Left L 4/5, 5/1 Left 07/30/2017 Performed by Shubham Clifton MD at [facility] RADIO FREQUENCY ABLATION Left SI joint Left 03/31/2019 Performed by Shubham Clifton MD at [facility] RADIO FREQUENCY ABLATION Right L2/3, 3/4 Right 03/29/2020 Performed by Shubham Clifton MD at [facility] RADIOFREQUENCY ABLATION SPINAL Left Si joint Left 05/07/2017 Performed by Shubham Clifton MD at [facility] RADIOFREQUENCY ABLATION SPINAL Right C 4/5,5/6 Right 06/26/2022 Performed by Shubham Clifton MD at [facility] RADIOFREQUENCY ABLATION SPINAL RIGHT SI JOINT Right 05/21/2017 Performed by Shubham Clifton MD at [facility] RELEASE CARPAL TUNNEL Left 11/04/2021 Performed by Ileana Cortes MD at [facility] SHOULDER SURGERY 2011 Right rotator cuff [...] mouth in the morning., Disp: , Rfl: yiemvpp-vxdfpxwkyceoh-qvvwoqpa (EXCEDRIN MIGRAINE) 250-250-65 mg per tablet, Take 1 tablet by mouth every 6 (six) hours as needed for headaches., Disp: , Rfl: atorvastatin (LIPITOR) 40 mg tablet, Take 1 tablet (40 mg total) by mouth in the morning., Disp: , Rfl: buprenorphine (BUTRANS) 7.5 mcg/hour patch weekly, Place 1 patch on the skin once a week., Disp: , Rfl: veqkzeqgnx-selybgpvnpfkr-jlwv (ESGIC) 50-325-40 mg per tablet, Take 1 [...] (FOSAMAX) 35 mg tablet Dose adjustment pediatric jiwrfydw-bwpq-jrh (flintstones complete) tablet,chewable Duplicate Listing Total time spent was 30 minutes which did not include wmnp-kk-broq contact with the patient: Preparing to see the patient (e.g., review of tests) Obtaining and/or reviewing separately obtained history Referring and communicating with other health family day care provider (not separately reported) Documenting clinical information in the electronic or other health record Independently interpreting results (not separately reported) and communicating results to the patient/family/caregiver The note was completed using EMR. Every effort was made to ensure accuracy; however, inadvertent computerized health education coordinator errors may be present. CARDIOVASCULAR STUDIES: EKG: No results found. ECHO: No results found. Stress Test: No results found. Cath: No results found. Device: Other: RYAN DALLAS [facility] Miscellaneous Notes Patient called and stated [...] Modules accepted: Orders documented in this encounter [facility] 02-09-2024 Note Addended by: Anna HAWKINS on: 02/10/2024 12:55 PM Modules accepted: Orders [facility] 02-09-2024 Telephone encounter Note Patient called and stated her bp has been elevated. She c/o Headache. 184/92, 224/95 217/93 she took an extra 50mg hydralazine as you have directed PRN and bp 146/78. Please advise going forward. [facility] 02-09-2024 Telephone encounter Note Increase hydralazine to 100 mg twice a day [facility] 02-09-2024 Telephone encounter Note I left patient a voicemail to call me back to verify the dose she is taking now of hydralazine. [facility] 02-09-2024 Telephone encounter Note I spoke to patient and she stated she is taking hydralazine 100mg daily. She is reluctant to try BID as it previously caused hypotension. Patient will try and then keep a bp log. [facility] 01-07-2024 History of Presen t illness Narrative [...] (migraines) Inderal (tremors) Gabapentin 200 mg nightly Wirt PRN Occipital nerve blocks (last 03/2021) Tizanidine [...] Breast disorder 4 biopsies Bronchitis 01/01/2017 Cancer ([facility]) Basal cell Carpal tunnel syndrome Cataract [...] 07/07/2018 Performed by Lalit Leach MD at [facility] ENDOSCOPY COSMETIC SURGERY 1984 DISCECTOMY 1989 Partial L4-5 EGD 2001 EYE SURGERY 2014 FOOT SURGERY 2009 Reattachment of tendon left foot with bone graft HIP SURGERY 2003 Excision of bursa left hip HYSTERECTOMY 1984 INJECTION BLOCK EPIDURAL STEROID LUMBAR/SACRAL Left L 5,1 NR Left 12/20/2020 Performed by Shubham Clifton MD at [facility] BLOCK NERVE MEDIAL BRANCH right C 4/5,5/6 Right 05/22/2022 Performed by Shubham Clifton MD at [facility] BLOCK NERVE MEDIAL BRANCH right C 4/5,5/6 Right 04/17/2022 Performed by Shubham Clifton MD at [facility] CAUDAL EPIDURAL WITH CATHETER, STEROID N/A 03/07/2018 Performed by Shubham Clifton MD at [facility] LARGE JOINT BURSA: bilat hip Bilateral 12/10/2017 Performed by Shubham Clifton MD at [facility] MEDIAL BRANCH NERVE BLOCK Bilateral L 4/5, 5/1 Bilateral 06/28/2017 Performed by Shubham Clifton MD at [facility] MEDIAL BRANCH NERVE BLOCK Right L 2/3, 3/4 Right 12/08/2019 Performed by Shubham Clifton MD at [facility] MEDIAL BRANCH NERVE BLOCK RIGHT L23 34 Right 01/19/2020 Performed by Shubham Clifton MD at [facility] SI JOINT Bilateral 04/09/2017 Performed by Shubham Clifton MD at [facility] SI JOINT Bilateral SI Joint Bilateral 05/31/2020 Performed by Shubham Clifton MD at [facility] SI JOINT Left SI JOint Left 01/06/2019 Performed by Shubham Clifton MD at [facility] INJECTION SI JOINT Right SI Joint Right 06/09/2019 Performed by Shubham Clifton MD at [facility] INJECTION SPINE TRANSFORAMINAL Left L 4, 5 NR Left 09/24/2017 Performed by Shubham Clifton MD at [facility] INJECTION SPINE TRANSFORAMINAL Left L 5,1 Nroot Left 01/08/2023 Performed by Shubham Clifton MD at [facility] INJECTION SPINE TRANSFORAMINAL Right L 5,1 Nroot Right 11/27/2022 Performed by Shubham Clifton MD at [facility] STEROID EPI 1 WITH SEDATION Left 5,1 NR Left 05/08/2019 Performed by Shubham Clifton MD at [facility] KNEE ARTHROSCOPY 2010, 2013 KNEE SURGERY 2010 2013 Arthroscopy bilateral/repair meniscus right X2, left X1 LAMINECTOMY LUMBAR FORAMENOTOMY MULTI LEVEL L1-2 RIGHT/L2-3 BILATERAL/LUMBAR DRAIN INSERTION N/A 07/03/2021 Performed by Ileana Cortes MD at [facility] LAPAROTOMY OOPHERECTOMY Bilateral 1984 LUMBAR DISCECTOMY LUMBAR FUSION 2009 L3-5 LUMBAR LAMINECTOMY MICRO LUMBAR DISCECTOMY L5-S1/ FORAMINOTOMY L5-S1 Left 01/14/2017 Performed by Ileana Cortes MD at [facility] OOPHORECTOMY 1982 OTHER SURGICAL HISTORY Knee Arthroscopy With Medial Meniscus Repair OTHER SURGICAL HISTORY Spinal Diskectomy RADIO FREQUENCY ABLATION Left L 4/5, 5/1 Left 12/02/2018 Performed by Shubham Clifton MD at [facility] RADIO FREQUENCY ABLATION Left L 4/5, 5/1 Left 07/30/2017 Performed by Shubham Clifton MD at [facility] RADIO FREQUENCY ABLATION Left SI joint Left 03/31/2019 Performed by Shubham Clifton MD at [facility] RADIO FREQUENCY ABLATION Right L2/3, 3/4 Right 03/29/2020 Performed by Shubham Clifton MD at [facility] RADIOFREQUENCY ABLATION SPINAL Left Si joint Left 05/07/2017 Performed by Shubham Clifton MD at [facility] RADIOFREQUENCY ABLATION SPINAL Right C 4/5,5/6 Right 06/26/2022 Performed by Shubham Clifton MD at [facility] RADIOFREQUENCY ABLATION SPINAL RIGHT SI JOINT Right 05/21/2017 Performed by Shubham Clifton MD at [facility] RELEASE CARPAL TUNNEL Left 11/04/2021 Performed by Ileana Cortes MD at [facility] SHOULDER SURGERY 2012 Right rotator cuff SKIN [...] mg total) by mouth in the morning. ouhyumv-jbehnmrqfvvcg-hvekpjsl (EXCEDRIN MIGRAINE) 250-250-65 mg per tablet Take 1 tablet by mouth every 6 (six) hours as needed for headaches. atorvastatin (LIPITOR) 40 mg tablet Take 1 tablet (40 mg total) by mouth in the morning. buprenorphine (BUTRANS) 7.5 mcg/hour patch weekly Place 1 patch on the skin once a week. owsgnsjdxw-oqsfkvvlnaoox-sbog (ESGIC) 50-325-40 mg per tablet Take 1 [...] procedures Referring and communicating with other health family day care provider (not separately reported) Documenting clinical information in the electronic or other health record Independently interpreting results (not separately reported) and communicating results to the patient/family/caregiver Care coordination (not separately reported) - Yoanna Dorsey DNP, APRN-CNP 01/07/24 10:53 AM [facility] 01/07/24 1053 documented in this encounter [email or web address] 01-07-2024 Instructions [facility]o - 01/07/2024 10:30 [...] earlier if needed. documented in this encounter [facility] 12-13-2023 Miscellaneous Notes Okay to sign and send documented in this encounter [facility] 12-13-2023 Telephone encounter Note Okay to sign and send [facility] Evaluation note Diagnosis General weakness- Primary Other malaise and fatigue History of falling documented in this encounter [facility]* Diagnosis Mixed hyperlipidemia (CMS/HCC)- Primary Mixed hyperlipidemia Stress incontinence of urine documented in this encounter [facility]* Diagnosis General weakness- Primary Other malaise and fatigue History of falling documented in this encounter [facility]* Diagnosis General weakness- Primary Other malaise and fatigue History of falling documented in this encounter [facility] Healthcare[facility] note* Diagnosis Migraine without aura [...] of both ears [facility] Diagnosis Essential hypertension Unspecified essential hypertension documented [facility] encounter [facility] Diagnosis Essential hypertension Unspecified essential hypertension documented in this encounter [facility]* Diagnosis Essential hypertension- Primary Unspecified essential hypertension LVH (left ventricular hypertrophy) Cardiomegaly Mixed hyperlipidemia Hypotension due to drugs Other iatrogenic hypotension [facility] Diagnosis Brain mass [G93.89]- Primary Unspecified condition of brain [facility] Diagnosis Intracranial meningioma (HCC)- Primary Benign neoplasm of cerebral meninges Sensorineural hearing loss (SNHL) of right ear, unspecified hearing status on contralateral side Dizziness Dizziness and giddiness [facility] Diagnosis Intracranial meningioma (HCC)- Primary Benign neoplasm of cerebral meninges Benign neoplasm of meninges (HCC) Benign neoplasm of cerebral meninges [facility] Diagnosis Urge incontinence [facility] filedocument[facility] in [facility] filedocument[facility] in [facility] filedocumented in [facility] filedocumented in [facility] filedocumented [facility] this encounter [facility] Summary Purpose Family History No Family History Records FoundNo Family History Records FoundNo Family History Records FoundNo Family History Records FoundNo Family History Records FoundNo Family History Records FoundNo Family History Records FoundNo Family History Records FoundNo Family History Records FoundNo Family History Records Found Advance Directives Documents on File Type Date Recorded Patient Health And Safety Representative 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 07/16/2021 3:45 PM Living Will 07/16/2021 [...] Documents on File Type Date Recorded Patient Health And Safety Representative 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 07/16/2021 3:45 PM Living Will 07/16/2021 3:40 PM Latest Code Status on File Code Status Date Activated Date Inactivated Comments Full Code 03/02/2023 4:15 AM 03/03/2023 3:57 PM Code Status History Code Status Date Activated Date Inactivated Comments Full Code 07/03/2021 9:57 AM 07/10/2021 6:07 PM Full Code 01/04/2018 4:32 PM 01/06/2018 6:44 PM Full Code 01/14/2017 8:37 AM 01/15/2017 5:28 PM Date Activated Date Inactivated Comments 03/02/2023 4:15 AM 03/03/2023 3:57 PM Date Activated Date Inactivated Comments 07/03/2021 9:57 AM 07/10/2021 6:07 PM Date Activated Date Inactivated Comments 01/04/2018 4:32 PM 01/06/2018 6:44 PM Date Activated Date Inactivated Comments 01/14/2017 8:37 AM 01/15/2017 5:28 PM Date Activated Date Inactivated Comments 03/02/2023 4:15 AM 03/03/2023 3:57 PM Date Activated Date Inactivated Comments 07/03/2021 9:57 AM 07/10/2021 6:07 PM Date Activated Date Inactivated Comments 01/04/2018 4:32 PM 01/06/2018 6:44 PM Date Activated Date Inactivated Comments 01/14/2017 8:37 AM 01/15/2017 5:28 PM Reason for Referral Specialty Diagnoses / Procedures Referred By Contac t Referred To Contact Diagnoses Decreased hearing of both ears Procedures Hearing Evaluation (Audiology) Yoanna Dorsey, SALES AGENT [employer] DISPATCHER [address] [place] [address] Referral ID Status Reason Start Date Expiration Date V isits Requested Visits Authorized [id number] Pending Review 01/07/2024 01/06/2025 1 1 Specialty Diagnoses / Procedures Referred By Contac t Referred To Contact MR IMAGING Diagnoses Benign neoplasm of meninges (HCC) Procedures MRI BRAIN WO/W IVCON MRI BRAIN BRAIN STEM W/O W/CONTRAST MATERIAL Mandi Hoover MD [address] [place] [address] [place] [address] Referral ID Status Reason Start Date Expiration Date Visits Requested Visits Authorized [id number] Pending Review Auto-Generat ed Referral 08/28/2024 06/08/2025 1 1 Specialty Diagnoses / Procedures Referred By Contac t Referred To Contact Diagnoses Urinary frequency Procedures Measure post void residual Maria C Kramer MD [address] [place] [id number] Referral ID Status Reason Start Date Expiration Date V isits Requested Visits Authorized [id number] Pending Review 08/29/2024 08/29/2025 1 1 Additional Source Comments INFORMATION SOURCE (unrecogn ized section and content) DATE CREATED AUTHOR 05/16/2018 [facility] DATE CREATED AUTHOR AUTHOR'S ORGANIZ ATION [facility]/21/[facility] DATE CREATED AUTHOR AUTHOR'S ORGANIZ ATION 11/13/2022 [facility] DATE CREATED AUTHOR AUTHOR'S ORGANIZ ATION 12/07/[address] [facility] dical Specialist DATE CREATED AUTHOR AUTHOR'S ORGANIZ ATION 12/04/2023 [facility] DATE CREATED AUTHOR AUTHOR'S ORGANIZ ATION 04/08/2024 [facility] DATE CREATED AUTHOR AUTHOR'S ORGANIZ ATION 07/11/2024 [facility] DATE CREATED AUTHOR AUTHOR'S ORGANIZ ATION 08/16/[address] [facility] dical Specialists EPIC DATE CREATED AUTHOR AUTHOR'S ORGANIZ ATION 08/25/2024 [facility] DATE CREATED AUTHOR AUTHOR'S ORGANIZ ATION 08/31/2024 [facility] Reason for Visit (unrecogniz ed section and content) Reason Onset Date Comments Med Refill 12/13/2023 Specialty Diagnoses / Procedures Referred By Contac t Referred To Contact Physical Therapy Diagnoses Muscle weakness (generalized) Procedures TREATMENT Bia Cao MD [address] [place] [address] Elmer Pettit, PT [address] [place] [address] Referral ID Status Reason Start Date Expiration Date V isits Requested Visits Authorized [id number] Authorized 12/08/2023 06/05/2024 99 99 Reason Comments Med Refill Reason Comments Blood Pressure Check Reason Comments Received Outside Medical Records Externa l referral to Neurological [place] [facility] triage Nurse Triage Call Appointment Reason Comments Consult Reason Onset Date Comments Med Refill 08/22/2024 Reason Comments Urinary Frequency Specialty Diagnoses / Procedures Referred By Contac t Referred To Contact Urology Diagnoses Urinary frequency Bia Cao MD [address] [place] [address] [facility] [address] [place] [address] Referral ID Status Reason Start Date Expiration Date Visits Requested Visits Authorized [id number] Pending Review Specialty Services Required 07/11/2024 07/11/2025 1 1 Care Teams (unrecognized sec tion and content) Urinalysis Technician Relationship Specialty Start Date End Date Bia Cao MD [address] [place] [address] PCP - General Family Medicine 02/05/23 Urinalysis Technician Relationship Specialty Start Date End Date Jacob Viveros PCP - [employer] 11/22/22 Bia Cao MD [address] [place] [address] PCP - General Family Medicine 04/29/23 Urinalysis Technician Relationship Specialty Start Date End Date Jacob Viveros PCP - [employer] 11/22/22 Bia Cao MD [address] [place] [address] PCP - General Family Medicine 04/29/23 Urinalysis Technician Relationship Specialty Start Date End Date Jacob Viveros PCP - [employer] 11/22/22 Bia Cao MD [address] [place] [address] PCP - General Family Medicine 04/29/23 Urinalysis Technician Relationship Specialty Start Date End Date Jacob Viveros PCP - [employer] 11/22/22 Bia Cao MD [address] [facility] [place] [address] PCP - General Family Medicine 04/29/23 Urinalysis Technician Relationship Specialty Start Date End Date Jacob Viveros PCP - [employer] 11/22/22 Bia Cao MD [address] [facility] [place] [address] PCP - General Family Medicine 04/29/23 Urinalysis Technician Relationship Specialty Start Date End Date Jacob Viveros PCP - [employer] 11/22/22 Bia Cao MD [address] [facility] [place] [address] PCP - General Family Medicine 04/29/23 Urinalysis Technician Relationship Specialty Start Date End Date Bia Cao MD [address] [facility] [place] [address] PCP - General Family Medicine 02/05/23 Urinalysis Technician Relationship Specialty Start Date End Date Bia Cao MD [address] [facility] [place] [address] PCP - General Family Medicine 02/05/23 Urinalysis Technician Relationship Specialty Start Date End Date Bia Cao MD [address] [facility] [place] [address] PCP - General Family Medicine 02/05/23 Urinalysis Technician Relationship Specialty Start Date End Date Bia Cao MD [address] [facility] [place] [address] PCP - General Family Medicine 02/05/23 Urinalysis Technician Relationship Specialty Start Date End Date (Hist), No Pcp PCP - General 11/04/17 Ileana Cortes MD [address] [place] [address] NI Referring Team Neurosurgery 03/24/24 Urinalysis Technician Relationship Specialty Start Date End Date (Hist), No Pcp PCP - General 11/04/17 Ileana Cortes MD [address] [place] [address] NI Referring Team Neurosurgery 03/24/24 Urinalysis Technician Relationship Specialty Start Date End Date (Hist), No Pcp PCP - General 11/04/17 Ileana Cortes MD [address] [place] [address] NI Referring Team Neurosurgery 03/24/24 Urinalysis Technician Relationship Specialty Start Date End Date Bia Cao MD PCP - General Family Medicine 02/05/23 Urinalysis Technician Relationship Specialty Start Date End Date Bia Cao MD PCP - General Family Medicine 02/05/23 Source Comments (unrecognize d section and content) In the event this informatio n is protected by the Federal Confidentiality of Alcohol and Drug Abuse Patient Records regulations: The Federal rules restrict any use of the information to criminally investigate or prosecute any alcohol or drug abuse patient.[facility] the event this information is protected by the Federal Confidentiality of Alcohol and Drug Abuse Patient Records regulations: The Federal rules restrict any use of the information to criminally investigate or prosecute any alcohol or drug abuse patient.[facility] the event this information is protected by the Federal Confidentiality of Alcohol and Drug Abuse Patient Records regulations: The Federal rules restrict any use of the information to criminally investigate or prosecute any alcohol or drug abuse patient.[facility] FOR RECORDS PERTAINING TO PATIENTS WHO ARE [...] BE BASED ON THE PRIMARY CLINICAL RECORDS. [facility]. provides no warranty or guarantee of the accuracy or completeness of information in this document.
--- NOTE | 2024-09-04 13:12 | P.CN_ITS ---
Consult Note: HPI Data of Consult Patient: known to practice within the last 3 years Consult date: 09/04/24 Requesting Physician: Nisa Galarza NP Primary Care Provider: TRUE DAVIS Consult Narrative Reason for consult: low back, right posterior head pain Narrative: 79yof who presents for assessment. notes significant relief, though temporary, after her recent right sij injection. she notes persistence of pain throughout right posterior head. she continues to use pain medication and butrans patch as needed. denies adverse med side effects. cc:: CC: Nisa Galarza NP Review of Systems ROS Status of ROS 10 or more systems reviewed and unremark able except as noted in history and below PFSH PFSH Medical History TMJ (dislocation of temporomandibular joint) ?S03.00XA - Dislocation of jaw, unspecified side, initial encounter (ICD-10) Neck pain ?M54.2 - Cervicalgia (ICD-10) Back pain ?M54.9 - Dorsalgia, unspecified (ICD-10) Osteoarthritis ?M19.90 - Unspecified osteoarthritis, unspecified site (ICD-10) H/O psychiatric care ?Z92.89 - Personal history of other medical treatment (ICD-10) Heartburn ?R12 - Heartburn (ICD-10) Acid reflux ?K21.9 - Gastro-esophageal reflux disease without esophagitis (ICD-10) Hypothyroid ?E03.9 - Hypothyroidism, unspecified (ICD-10) Kidney stones ?N20.0 - Calculus of kidney (ICD-10) Asthma ?J45.909 - Unspecified asthma, uncomplicated (ICD-10) High cholesterol ?E78.00 - Pure hypercholesterolemia, unspecified (ICD-10) Hypertension ?I10 - Essential (primary) hypertension (ICD-10) Surgical History H/O shoulder surgery ?Z98.890 - Other specified postprocedural states (ICD-10) H/O excision of hemangioma ?Z98.890 - Other specified postprocedural states (ICD-10) ?Z86.018 - Personal history of other benign neoplasm (ICD-10) H/O basal cell carcinoma excision ?Z98.890 - Other specified postprocedural states (ICD-10) ?Z85.828 - Personal history of other malignant neoplasm of skin (ICD-10) H/O lumbosacral spine surgery ?Z98.890 - Other specified postprocedural states (ICD-10) H/O foot surgery ?Z98.890 - Other specified postprocedural states (ICD-10) H/O hand surgery ?Z98.890 - Other specified postprocedural states (ICD-10) H/O wrist surgery ?Z98.890 - Other specified postprocedural states (ICD-10) History of cholecystectomy ?Z90.49 - Acquired absence of other specified parts of digestive tract (ICD- 10) H/O breast biopsy ?Z98.890 - Other specified postprocedural states (ICD-10) History of appendectomy ?Z90.49 - Acquired absence of other specified parts of digestive tract (ICD- 10) History of tonsillectomy and adenoidectomy ?Z90.89 - Acquired absence of other organs (ICD-10) Meds Home Medications and Allergies Home Medications ?Medication ?Instructions ?Recorded ?Confirmed ?Type acetaminophen 650 mg 1,300 mg PO Q8H PRN pain 07/07/23 08/21/24 History tablet,extended release (Arthritis Pain Relief (acetaminophen) ER) albuterol 90 mcg/actuation aerosol 90 mcg inhalation .every 4 hours 07/07/23 08/21/24 History inhaler PRN shortness of breath or wheezing alendronate 35 mg tablet 70 mg PO QWEEK 07/07/23 08/21/24 History amitriptyline 50 mg tablet 50 mg PO DAILY 07/07/23 08/21/24 History ascorbic acid (vitamin C) 500 mg 500 mg PO BID 07/07/23 08/21/24 History tablet,extended release (C Complex) aspirin 81 mg tablet,delayed 81 mg PO DAILY 07/07/23 08/21/24 History release (Adult Aspirin Regimen) atorvastatin 40 mg tablet 40 mg PO DAILY 07/07/23 08/21/24 History calcium carbonate (Calcium 600) 600 mg PO DAILY 07/07/23 08/21/24 History carvedilol 25 mg tablet 25 mg PO BID 07/07/23 08/21/24 History cholecalciferol (vitamin D3) 50 200 mcg PO DAILY 07/07/23 08/21/24 History mcg (2,000 unit) tablet (Vitamin D3) escitalopram oxalate 20 mg tablet 20 mg PO DAILY 07/07/23 08/21/24 History famotidine 20 mg tablet 20 mg PO DAILY 07/07/23 08/21/24 History fenofibrate 160 mg tablet 160 mg PO DAILY 07/07/23 08/21/24 History fexofenadine 180 mg tablet 180 mg PO DAILY 07/07/23 08/21/24 History hydralazine 100 mg tablet 100 mg PO TID 07/07/23 08/21/24 History levothyroxine 150 mcg capsule 150 mcg PO DAILY 07/07/23 08/21/24 History lisinopril 20 1 tab PO DAILY 07/07/23 08/21/24 History mg-hydrochlorothiazide 12.5 mg tablet magnesium 250 mg tablet 250 mg PO DAILY 07/07/23 08/21/24 History tgvlkyob-oav-cmxza acid 0.4 1 tab PO DAILY 07/07/23 08/21/24 History mg-lycopene 300 mcg-lutein 250 mcg tablet (Centrum Silver) omeprazole 40 mg capsule,delayed 40 mg PO DAILY 07/07/23 08/21/24 History release oxybutynin chloride 10 mg 10 mg PO DAILY 07/07/23 08/21/24 History tablet,extended release 24 hr methocarbamol 500 mg tablet 500 mg PO BID 04/19/24 08/21/24 History buprenorphine 7.5 mcg/hour weekly 1 patch transdermal Q7D #4 ea 05/01/24 08/21/24 Rx transdermal patch (Butrans) buprenorphine 7.5 mcg/hour weekly 1 patch transdermal Q7D #4 ea 08/29/24 Rx transdermal patch (Butrans) Allergies Allergy/AdvReac Type Severity Reaction Status Date / Time adhesive tape Allergy unknown Verified 07/17/24 10:20 Influenza Virus Vaccines Allergy unknown Verified 07/17/24 10:20 lincomycin (From Lincocin) Allergy Unknown Verified 07/17/24 10:20 Penicillins Allergy Unknown Verified 07/17/24 10:20 Exam Narrative Exam Narrative: Psych-alert and oriented x 3.? Attentive and appropriate, constitutionally normal, displays normal mood and affect per situation.? There are no obvious deficits in memory, reasoning, or intellect.? Cranial nerves 3-12 are grossly intact.? Pupils are equally round and reactive to light. No notable photophobia. There is significant palpatory tenderness over the right occipital nerve at the occipital groove. Coordination remains intact.? Gait remains non-antalgic. Assessment and Plan Assessment and Plan (1) Occipital neuralgia: Qualifiers: Laterality: right Qualified Code(s): M54.81 - Occipital neuralgia (2) Lumbar stenosis with neurogenic claudication: (3) Lumbar postlaminectomy syndrome: Plan 79yof who presents for assessment. failed conservative measures, as noted. discussed that given her significant, though temporary, relief after sij injection, she could potentially benefit from another sij injection for sustained relief. given her history of lumbar fusion, she may potentially even be a good candidate for spinal cord stimulation. in terms of her right posterior head pain, will proceed with right occipital nerve block. she is in agreement. meds reviewed, no changes. follow up 2-3 months. Procedure: Right occipital nerve block Medications: Bupivacaine 0.25% 2cc, kenalog 40mg I explained the details of the procedure to the patient including the risks, benefits and alternatives. We had an informed discussion and the patient verbalized understanding and signed the consent form. All questions were answered appropriately.? A time out was performed.The patient was identified, the chart was reviewed, and all allergies were confirmed.? Laterality was conducted and marked.? The right side of the occiput was sterilely prepped times three using alcohol. The occipital artery was palpated, then a naga was placed two centimeters lateral to the greater occipital protuberance.? A 27 gauge 1 1/2 inch needle was used to inject a total of 2.0 mL of 0.25% Bupivicaine with 40 mg of Methylprednisolone after negative aspiration for? heme, CSF, or other bodily fluid.? The needle was then fanned in the direction of the greater occipital nerve.? Vital signs were monitored before, during, and after the procedure and remained stable at all points.? The patient was discharged with no complications.
== END 2024-09-04 12:17 | disposition home or self-care (01) ==
LOC: PM 12:17
PROVIDERS: PCP Family Medicine; Visit Provider Nurse Practitioner
DX: M54.81 Occipital neuralgia (principal); M48.062 Spinal stenosis, lumbar region with neurogenic claudication; M96.1 Postlaminectomy syndrome, not elsewhere classified
CPT/HCPCS: 64405; J0665; J3301

== ENCOUNTER 2024-11-02 13:19 | Outpatient (OUT) | payer MEDICARE, SELFPAY ==
--- NOTE | 2024-11-02 13:45 | PM.CN ---
Consult Note: HPI Data of Consult Patient: known to practice within the last 3 years Consult date: 05/01/24 Requesting Physician: Nisa Galarza NP Primary Care Provider: TRUE DAVIS Consult Narrative Reason for consult: low back and hip pain Narrative: Angela Ruth a pleasant 79 year old female presents for evaluation and management of chronic low back and right hip pain. hx of lumbar surgery unknown levels laminectomy and fusion L3-5. Patient reporting moderate to severe low back pain with radiation into right leg. Pain today 6/10 increasing to 9/10 with standing walking and by end of day. Patient reports hx of lumbar RFAs that helped for a few months. Patient finds mild benefit from current medication regimen without side effects. previous bilateral L5/S1 provided 50% improvement for 3 months. patient noticing worsening of RLE pain over the last month. cc:: CC: Nisa Galarza NP Review of Systems ROS Status of ROS 10 or more systems reviewed and unremarkable except as noted in history and below Musculoskeletal Reports: back pain, neck pain and joint pain PFSH PFSH Medical History TMJ (dislocation of temporomandibular joint) ?S03.00XA - Dislocation of jaw, unspecified side, initial encounter (ICD-10) Neck pain ?M54.2 - Cervicalgia (ICD-10) Back pain ?M54.9 - Dorsalgia, unspecified (ICD-10) Osteoarthritis ?M19.90 - Unspecified osteoarthritis, unspecified site (ICD-10) H/O psychiatric care ?Z92.89 - Personal history of other medical treatment (ICD-10) Heartburn ?R12 - Heartburn (ICD-10) Acid reflux ?K21.9 - Gastro-esophageal reflux disease without esophagitis (ICD-10) Hypothyroid ?E03.9 - Hypothyroidism, unspecified (ICD-10) Kidney stones ?N20.0 - Calculus of kidney (ICD-10) Asthma ?J45.909 - Unspecified asthma, uncomplicated (ICD-10) High cholesterol ?E78.00 - Pure hypercholesterolemia, unspecified (ICD-10) Hypertension ?I10 - Essential (primary) hypertension (ICD-10) Surgical History H/O shoulder surgery ?Z98.890 - Other specified postprocedural states (ICD-10) H/O excision of hemangioma ?Z98.890 - Other specified postprocedural states (ICD-10) ?Z86.018 - Personal history of other benign neoplasm (ICD-10) H/O basal cell carcinoma excision ?Z98.890 - Other specified postprocedural states (ICD-10) ?Z85.828 - Personal history of other malignant neoplasm of skin (ICD-10) H/O lumbosacral spine surgery ?Z98.890 - Other specified postprocedural states (ICD-10) H/O foot surgery ?Z98.890 - Other specified postprocedural states (ICD-10) H/O hand surgery ?Z98.890 - Other specified postprocedural states (ICD-10) H/O wrist surgery ?Z98.890 - Other specified postprocedural states (ICD-10) History of cholecystectomy ?Z90.49 - Acquired absence of other specified parts of digestive tract (ICD-10) H/O breast biopsy ?Z98.890 - Other specified postprocedural states (ICD-10) History of appendectomy ?Z90.49 - Acquired absence of other specified parts of digestive tract (ICD-10) History of tonsillectomy and adenoidectomy ?Z90.89 - Acquired absence of other organs (ICD-10) Meds Home Medications and Allergies Home Medications ?Medication ?Instructions ?Recorded ?Confirmed ?Type acetaminophen 650 mg 1,300 mg PO Q8H PRN pain 07/07/23 08/21/24 History tablet,extended release (Arthritis Pain Relief (acetaminophen) ER) albuterol 90 mcg/actuation aerosol 90 mcg inhalation .every 4 hours 07/07/23 08/21/24 History inhaler PRN shortness of breath or wheezing alendronate 35 mg tablet 70 mg PO QWEEK 07/07/23 08/21/24 History amitriptyline 50 mg tablet 50 mg PO DAILY 07/07/23 08/21/24 History ascorbic acid (vitamin C) 500 mg 500 mg PO BID 07/07/23 08/21/24 History tablet,extended release (C Complex) aspirin 81 mg tablet,delayed 81 mg PO DAILY 07/07/23 08/21/24 History release (Adult Aspirin Regimen) atorvastatin 40 mg tablet 40 mg PO DAILY 07/07/23 08/21/24 History calcium carbonate (Calcium 600) 600 mg PO DAILY 07/07/23 08/21/24 History carvedilol 25 mg tablet 25 mg PO BID 07/07/23 08/21/24 History cholecalciferol (vitamin D3) 50 200 mcg PO DAILY 07/07/23 08/21/24 History mcg (2,000 unit) tablet (Vitamin D3) escitalopram oxalate 20 mg tablet 20 mg PO DAILY 07/07/23 08/21/24 History famotidine 20 mg tablet 20 mg PO DAILY 07/07/23 08/21/24 History fenofibrate 160 mg tablet 160 mg PO DAILY 07/07/23 08/21/24 History fexofenadine 180 mg tablet 180 mg PO DAILY 07/07/23 08/21/24 History hydralazine 100 mg tablet 100 mg PO TID 07/07/23 08/21/24 History levothyroxine 150 mcg capsule 150 mcg PO DAILY 07/07/23 08/21/24 History lisinopril 20 1 tab PO DAILY 07/07/23 08/21/24 History mg-hydrochlorothiazide 12.5 mg tablet magnesium 250 mg tablet 250 mg PO DAILY 07/07/23 08/21/24 History xtqqkayh-frx-yhqvi acid 0.4 1 tab PO DAILY 07/07/23 08/21/24 History mg-lycopene 300 mcg-lutein 250 mcg tablet (Centrum Silver) omeprazole 40 mg capsule,delayed 40 mg PO DAILY 07/07/23 08/21/24 History release oxybutynin chloride 10 mg 10 mg PO DAILY 07/07/23 08/21/24 History tablet,extended release 24 hr methocarbamol 500 mg tablet 500 mg PO BID 04/19/24 08/21/24 History buprenorphine 7.5 mcg/hour weekly 1 patch transdermal Q7D #4 ea 05/01/24 08/21/24 Rx transdermal patch (Butrans) buprenorphine 7.5 mcg/hour weekly 1 patch transdermal Q7D #4 ea 08/29/24 Rx transdermal patch (Butrans) buprenorphine 7.5 mcg/hour weekly 1 patch transdermal Q7D #4 ea 10/04/24 Rx transdermal patch (Butrans) methocarbamol 500 mg tablet 1,000 mg (2 x 500 mg) PO BID PRN 10/04/24 Rx spasms #60 tabs buprenorphine 7.5 mcg/hour weekly 1 patch transdermal Q7D PRN pain 11/02/24 Rx transdermal patch (Butrans) #4 ea Allergies Allergy/AdvReac Type Severity Reaction Status Date / Time adhesive tape Allergy unknown Verified 07/17/24 10:20 Influenza Virus Vaccines Allergy unknown Verified 07/17/24 10:20 lincomycin (From Lincocin) Allergy Unknown Verified 07/17/24 10:20 Penicillins Allergy Unknown Verified 07/17/24 10:20 Exam Constitutional Documenting provider has reviewed patient's vital signs: yes Common normals: no apparent distress, oriented x3, healthy appearing, alert and well nourished General appearance: cooperative HENMT Common normals: normocephalic, hearing grossly normal bilaterally and moist oral mucous membranes Head and scalp: normocephalic Eye Common normals: PERRL Pupil: PERRL Neck & C-Spine Common normals: full ROM General: normal visual inspection Other: negative facet loading, negative spurlings, strength 5/5 in BUE Chest Common normals: inspection of chest normal Respiratory Common normals: normal respiratory effort, no retractions and no use of accessory muscles Back & Pelvis Lumbar spine/lower back: ROM limited, pain with ROM and straight leg raise positive right Sacroiliac joints: SI joints normal Other: right SIJ negative eri(patricks), gaenslens, thigh thrust, compression test decreased sensation right L4,5,S1 strength 4/5 in BLE Extremity Right lower extremity: hip joint Other: pain with internal and external log roll Neuro Common normals: oriented x3, CN's II-XII intact bilaterally, moves all extremities, no focal motor deficits, no sensory deficits noted and deep tendon reflexes 2+ bilaterally Sensorium/orientation: alert Motor exam: strength 5/5 throughout and no movement abnormalities noted Psych Common normals: mental status grossly normal, thought process normal, cooperative, affect normal, speech normal and activity/motor behavior normal Speech: normal speech Thought process: normal thought process Results Additional Findings Additional findings: If on a controlled substance or opioids, I have checked an [place] report on this patient and there are no aberrancies noted in the prescribing history.??If on a controlled substance or opioid a drug screen was completed and reviewed within the last year, and if there has not been a drug screen completed we ordered one today to monitor higher risk, state monitored pain medication use. As part of providing excellent, safe, comprehensive care, the following was completed at our patient's visit: 1. A medication reconciliation and review to ensure accurate knowledge of current/active medications, including asking our patients to inform us about any ibod-wlp-chilbrj medications or herbal remedies/nutritional supplements/alternative remedies. 2. A review to specifically ensure our patients have had annual screening for screening for depression, screening for tobacco use, and screening for unhealthy alcohol use. For concerning screenings had a discussion with the patient, provided patient education, and recommended follow-up with primary care provider when appropriate. If patient noted with a risk of falling, they received education on strength, gait, and balance training to prevent future risk of falling. Assessment and Plan Assessment and Plan (1) Lumbar postlaminectomy syndrome: (2) Lumbar stenosis with neurogenic claudication: (3) Lumbar radiculopathy: (4) Sacroiliitis: (5) Myofascial pain: (6) Occipital neuralgia: Qualifiers: Laterality: right Qualified Code(s): M54.81 - Occipital neuralgia (7) Degenerative cervical disc: (8) Cervical spondylosis: (9) Chronic prescription opiate use: Assessment and Plan: I feel these medications are improving the patient's quality of life and allow them to tolerate activities of daily living as well as participate in recreational activity.? The patient does not report intolerable side effects. The patient is NOT opioid naive and non-pharmacologic and non-opioid treatment has failed to significantly relieve the patient's pain and improve functionality. The patient has a diagnosis that is related to a somatic or visceral pain etiology. ? ?? I reviewed with the patient the potential risks and side effects with the use of? opioid medications including but not limited to respiratory depression,? sedation, and even . I verified the patient has access to naloxone should? these effects occur. I advised the patient to avoid the use of any other? sedation substances including alcohol, THC, and benzodiazepines while? taking opioid medications due to the risk of compounding side effects and? detrimental outcomes. I reviewed the [employer], pain treatment agreement, urine? drug screen, and opioid start talking forms. The patient was advised to let? their family know they had Naloxone in case they would need to administer? the medication.? ?? A drug screen was completed within the last year, and no aberrancies were noted regarding their use of controlled substances. The patient understands they are subject to the terms and conditions of the pain contract that they have signed. ? ?? I have checked an [place] report on this patient today and there are no aberrancies noted in the prescribing history.? (10) Muscle spasm: (11) Osteoarthritis of right hip: Plan right L4-5 l5-s1 TFESI under fluoroscopy spinal cord stim trial discussed, handout provided continue current medications, finding benefit without side effects f/u after injections complete
== END 2024-11-02 13:20 | disposition home or self-care (01) ==
PROVIDERS: PCP Family Medicine; Visit Provider Nurse Practitioner
DX: M96.1 Postlaminectomy syndrome, not elsewhere classified (principal); M48.062 Spinal stenosis, lumbar region with neurogenic claudication; M54.16 Radiculopathy, lumbar region; M46.1 Sacroiliitis, not elsewhere classified; M54.81 Occipital neuralgia; M50.30 Other cervical disc degeneration, unspecified cervical region; M47.812 Spondylosis without myelopathy or radiculopathy, cervical region; Z79.891 Long term (current) use of opiate analgesic; M62.838 Other muscle spasm; M16.11 Unilateral primary osteoarthritis, right hip
CPT/HCPCS: G0463

== ENCOUNTER 2024-11-20 09:38 | Day surgery (SDC) | payer MEDICARE, SELFPAY ==
--- OUTSIDE RECORDS SUMMARY | 2024-11-20 09:55 | XMS_ITS | CCD ---
Author Organization [facility] Providers Care Vp Respiratory Name Role Phone LENNY PEDRAZA Unavailable Unavailable AUDREY HORN Unavailable Unavailable AUDREY HORN Unavailable Unavailable ELNNY PEDRAZA Unavailable Unavailable NASH, BIA F Primary Care Unavailable NASH, BIA F Primary Care Unavailable LALIT LEACH Attending Unavailable NASH, BIA F Referring Unavailable NASH, BIA F Primary Care Unavailable Nash GARCIA, Bia Mccormick Primary Care Provider [phone] Jacob Viveros Unavailable Unavailable Bia Cao MD Primary Care Provider (Hist), No Pcp Primary Care Provider UnavailIleana Prais MD Unavailable [phone] NASH, BIA F Primary Care Unavailable JUAN TAMEZ Attending Unavailable JUAN TAMEZ Attending Unavailable JUAN TAMEZ Referring Unavailable NASH, BIA F Primary Care Unavailable KEANU, JOHN Referring Unavailable NASH, BIA F Primary Care Unavailable VELASQUEZDAANNIKA, JOHN Referring Unavailable NASH, BIA F Primary Care Unavailable WILLIAN, YOANNA Referring Unavailable NASH, BIA F Primary Care Unavailable Nash GARCIA, Bia Mccormick Primary Care Provider [phone] NASH, BIA F Referring Unavailable NASH, BIA F Primary Care Unavailable MARIA C KRAMER Attending Unavailable WILLIAN, YOANNA Attending Unavailable NASH, BIA F Referring Unavailable NASH, BIA F Primary Care Unavailable WILLIAN, YOANNA Attending Unavailable NASH, BIA F Referring Unavailable NASH, BIA F Primary Care Unavailable GUNDABOITMOTHY, JOHN Attending Unavailable NASH, BIA F Referring Unavailable NASH, BIA F Primary Care Unavailable WILLIAN, YOANNA Referring Unavailable NASH, BIA F Primary Care Unavailable ILEANA CORTES Attending Unavailable NASH, BIA F Referring Unavailable NASH, BIA F Primary Care Unavailable WILLIAN, YOANNA Attending Unavailable NASH, BIA F Referring Unavailable NASH, BIA F Primary Care Unavailable Giedraitis , Adelfo Arredondo Attending Unavailable Giedraitis , Andrius Arredondo Attending Unavailable Giedraitis , Andrius Arredondo Attending Unavailable Giedraitis , Andrius Arredondo Attending Unavailable Giedraitis , Andrius Arredondo Attending Unavailable Giedraitis , Andrius Arredondo Attending Unavailable Giedraitis , Andrius Maria Elena Attending Unavailable Oswaldo GARCIA, Ileana Castillo Unavailable [phone] ROSE VELASQUEZ Attending Unavailable HOOVER, MANDI F Referring Unavailable HOOVER, MANDI F Attending Unavailable HOOVER, MANDI F Referring Unavailable JackelineJacob mancini Unavailable Unavailable NASH, BIA F Attending Unavailable NASH, BIA F Attending Unavailable RUSHER, SANTO Castillo Attending Unavailable WILVERELMER WILKERSON Attending Unavailable NASH, [...] Referring Unavailable NASH, BIA F Attending Unavailable WILVER, ELMER Guillermo Attending Unavailable NASH, BIA F Referring Unavailable SNYDER, RIA Attending Unavailable NASH, BIA F Referring Unavailable WILVERELMER Attending Unavailable NASH, BIA F Referring Unavailable NASH, BIA F Referring Unavailable NASH, BIA F Referring Unavailable NASH, BIA F Referring Unavailable NASH, BIA F Attending Unavailable NASH, BIA F Attending Unavailable TRACI FLORES Attending Unavailable NASH, BIA F Attending Unavailable NASH, BIA F Referring Unavailable NASH, BIA F Attending Unavailable NASH, BIA F Attending Unavailable RUSHER, SANTO Castillo Attending Unavailable Allergies Allergy Classification Reported Allergen(s) Allergy Type Date of Onset Reaction(s) Facility Amoxicillin / Clavulanate (1 source) Amoxicillin / Clavulanate Drug Allergy 08-14-20 11 [facility] Aspartame (1 source) Aspartame Drug Allergy 02-13-20 17 Other: See Comments [facility] Clavulanate (1 source) Clavulanate Drug Allergy 02-13-20 17 [facility] egg white (chicken) allergenic extract (1 source) egg white (chicken) allergenic extract Drug Allergy 08-14-20 11 Swelling [facility] Lincomycin (1 source) Lincomycin Drug Allergy 11-04-20 16 [facility] NSAIDs (1 source) oxaprozin Drug Allergy 11-04-20 16 [facility] Penicillins (antibiotic) (1 source) Penicillins Drug Allergy 11-04-20 16 [facility] (17 sources) Adhesive agent; Translations: [ADHESIVE] Propensity to adverse reactions to drug (disorder) 11-04-20 16 Other: See Comments [facility] (20 sources) Aspartame; Translations: [ASPARTAME] Drug Allergy 02-13-20 17 Other (See Comments), Unknown, Other: See Comments [facility] (10 sources) chicken allergenic extract; Translations: [POULTRY] Drug Allergy 03-02-20 23 [facility] (20 sources) Clavulanate; Translations: [CLAVULANIC ACID] Drug Allergy 02-13-20 17 Rash [facility] (10 sources) egg shell membrane; Translations: [EGGSHELL MEMBRANE] Propensity to adverse reactions to food (disorder) 11-04-20 16 [facility] (20 sources) Indomethacin; Translations: [INDOMETHACIN] Drug Allergy 05-02-20 21 Hypotension, Unknown [facility] (20 sources) Lincomycin; Translations: [LINCOMYCIN] Drug Allergy 08-14-20 11 Anaphylaxis, Rash [facility] (17 sources) Lincosamides (Antibiotic); Translations: [LINCOSAMIDES] Propensity to adverse reactions to drug (disorder) 02-13-20 17 Anaphylaxis [facility] (16 sources) oxaprozin; Translations: [OXAPROZIN] Drug Allergy 11-04-20 16 Rash [facility] (20 sources) Penicillins; Translations: [PENICILLINS] Propensity to adverse reactions to drug (disorder) 11-04-20 16 Rash [facility] (20 sources) Sulfamethoxazole / Trimethoprim; Translations: [SULFAMETHOXAZOLE-T RIMETHOPRIM] Drug Allergy 10-22-20 23 Hives [facility] (10 sources) Sulfonamides (Antibiotic); Translations: [SULFA (SULFONAMIDE ANTIBIOTICS)] Propensity to adverse reactions to drug (disorder) 11-11-20 22 Hives [facility] (17 sources) INFLUENZA VIRUS VACCINES; Translations: [INFLUENZA VIRUS VACCINES] Propensity to adverse reactions to drug (disorder) 02-13-20 17 Swelling [facility] (20 sources) OTHER; Translations: [OTHER] Propensity to adverse reactions (disorder) 02-13-20 17 Other (See Comments), Swelling [facility] (20 sources) AMOXICILLIN-POT CLAVULANATE; Translations: [AMOXICILLIN-POT CLAVULANATE] Propensity to adverse reactions to drug (disorder) 08-14-20 11 Rash [facility] (20 sources) CLEMIZOLE; Translations: [CLEMIZOLE] Propensity to adverse reactions to drug (disorder) 02-13-20 17 Rash [facility] (20 sources) Influenza Vaccines Drug Allergy 06-04-20 23 Rash [facility] (20 sources) Lincomycin Drug Allergy 12-01-19 22 Unknown [facility] (20 sources) Sulfonamides (Antibiotic) Drug Intolerance 11-11-20 22 [facility] (6 sources) Eggs Or Egg-Derived Products Drug Allergy 08-14-20 11 Swelling, Unknown [facility] (20 sources) Poultry Meal Propensity to adverse reactions 03-02-20 23 [facility] (20 sources) Wound Dressing Adhesive Drug Allergy 06-04-20 23 Rash [facility] (6 sources) egg white (chicken) allergenic extract; Translations: [EGG WHITE] Drug Allergy 08-14-20 11 Swelling [facility] (15 sources) Egg-Derived Products Drug Allergy 08-14-20 11 Swelling, Unknown [facility] Medications Current Medications Medication Drug Class(es) Dates Sig (Normalized) Sig (Original) acetaminophen 500 mg oral tablet (13 sources) take 500-1000 mg by mouth every eight hours as needed acetaminophen (TYLENOL) 500 mg tablet Take 500-1,000 mg by mouth three times daily as needed. Active take 2 tablets by [facility] every six hours as needed for pain acetaminophen (TYLENOL EXTRA STRENGTH) 5 00 mg tablet Take 2 tablets (1,000 mg total) by mouth every 6 (six) hours as needed for pain. Active acetaminophen 250 mg / aspirin 250 mg / caffeine 65 mg oral tablet (7 sources) Platelet Aggregation Inhibitor, Nonsteroidal Anti-inflammatory Drug, Central Nervous System Stimulant, Methylxanthine take 1 tablet by mouth every six hours as needed for headache qnylgzc-lsgqqzxufanqs-uoufyubs (EXCEDRIN MIGRAINE) 250-250-65 mg per tablet Take 1 tablet by mouth every 6 (six) hours as needed for headaches. Active acetaminophen 325 mg / butalbital 50 mg / caffeine 40 mg oral tablet (20 sources) Barbiturate, Central Nervous System Stimulant, Methylxanthine St ar t: take 1 tablet by mouth every four hours as needed uofdfdadag-ylkynwmkrfgkp-llmqpcy e 50-325-40 MG tablet Take 1 tablet by mouth every 4 (four) hours if needed. 04/23/2023 Active acetaminophen 325 mg / dichloralphenazone 100 mg / isometheptene 65 mg oral capsule (6 sources) take 1 capsule by mouth every six hours as needed acetaminophen-dichloralphenazone -isometheptene (MIDRIN) 65-100-325 mg per capsule 1 capsule four times daily as needed. Active [id number] 200 actuat albuterol 0.09 mg/actuat metered dose inhaler (20 sources) beta2-Adrenergic Agonist [facility] t: take 2 puff(s) by inhalation every [...] Active alendronic acid 70 mg oral tablet (20 sources) Bisphosphonate Start: 01-25-2024 take 1 tablet by mouth every week alendronate (FOSAMAX) 70 mg tablet Take 70 mg by mouth one time a week. 01/25/2024 Active Start: 01-25-2024 alendronate (F OSAMAX) 70 mg tablet Take 1 tablet (70 mg total) by mouth every 7 days. 01/25/2024 Active Start: 12-13-2023 End: 01-07-2024 take [...] Active amitriptyline hydrochloride 50 mg oral tablet (20 sources) Tricyclic Antidepressant Start: 11-17-2023 End: 08-08-2025 take 1 tablet by mouth at bedtime amitriptyline (Elavil) 50 MG tablet Indications: Primary insomnia Take 1 tablet (50 mg) by mouth at bedtime 90 tablet 3 08/08/2024 08/08/2025 Active take 1 tablet by margo th once daily at bedtime amitriptyline (ELAVIL) 100 mg tablet Ronlado e 100 mg by mouth daily at bedtime. Active ascorbic acid 1000 mg oral t ablet (20 sources) Vitamin C Ascorbic Acid (v itamin C) 1000 MG tablet 1 (one) time each day at the same time. Active take 2 tablets by mouth in the m orning ascorbic acid (VITAMIN C) 500 mg tablet Take 2 tablets (1,000 mg total) by mouth in the morning. Active aspirin 81 mg delayed release oral tablet (20 sources) Platelet Aggregation Inhibitor, Nonsteroidal Anti-inflammatory Drug take 1 tablet by mouth in the morning aspirin 81 MG EC tablet Take 81 mg by mouth in the morning. Active atorvastatin 40 mg oral tablet (20 sources) HMG-CoA Reductase Inhibitor Start: 2016 End: 2023 take 1 tablet by mouth once daily atorvastatin (Lipitor) 40 MG tablet Indications: Mixed hyperlipidemia (CMS/HCC) take 1 tablet by mouth once daily 90 tablet 3 01/03/2024 Active 168 hr buprenorphine 0.0075 mg/hr transdermal system (20 sources) Partial Opioid Agonist Start: 2022 apply 1 dose transdermal route every week buprenorphine (BUTRANS) 7.5 mcg/hour patch weekly Place 1 patch on the skin once a week. 07/20/2023 Active calcium carbonate 1500 mg / cholecalciferol 800 unt oral tablet (20 sources) Vitamin D Calcium Carb-Cholecalcifero l 600-20 MG-MCG tablet Take 600 mg by mouth at bedtime. Active take 1 tablet by mouth once halley y calcium carbonate-vitamin D3 600 mg(1,500mg) -800 unit tab Take 1 tablet by mouth once daily. Active carvedilol 25 mg oral tablet (20 sources) alpha-Adrenergic To, beta-Adrenergic To Start: 01-12-2024 End: 01-11-2025 take 1 tablet by mouth once carvedilol (Coreg) 25 MG tablet Indications: Essential hypertension (CMS/HCC) Take 1 tablet (25 mg) by mouth every 12 (twelve) hours 200 tablet 3 01/12/2024 01/11/2025 Active Start: 01-24-2018 take 1 tablet by margo th twice daily carvedilol (COREG) 25 mg tablet Take 25 mg by mouth twice daily. 1 01/24/2018 Active carvedilol (Core g) 25 MG tablet every 12 (twelve) hours. 0 Active cholecalciferol 0.025 mg ora l tablet (20 sources) Vitamin D cholecalciferol (Vitamin D-3) 25 MCG (1000 UT) tablet 1,000 Units in the morning. Take before meals. Active cholecalciferol (VITAMIN D3) 1,000 unit tab tablet 1,000 Units once daily. Active ciprofloxacin 500 mg oral tablet (7 sources) Quinolone Antimicrobial Start: 07-03-2024 End: 07-18-2024 take 1 tablet by mouth in the morning ciprofloxacin (Cipro) 500 MG tablet Indications: Acute cystitis without hematuria Take 1 tablet (500 mg) by mouth in the morning and 1 tablet (500 mg) before bedtime. Do all this for 7 days. 14 tablet 07/11/2024 07/18/2024 Active Start: 11-23-2023 End: 01-07-2024 take 1 tablet by mouth at bedtime ciprofloxacin HCl (CIPRO) 500 mg tablet TAKE 1 TABLET (500 MG) BY MOUTH IN THE MORNING AND BEFORE BEDTIME FOR 7 DAYS 0 11/23/2023 01/07/2024 Discontinued cyclobenzaprine hydrochloride 5 mg oral tablet (6 sources) Muscle Relaxant take 2 tablets by mouth every eight hours as needed cyclobenzaprine (FLEXERIL) 5 mg tablet Take 10 mg by mouth three times daily as needed. Active diclofenac sodium 75 mg delayed release oral tablet (6 sources) Nonsteroidal Anti-inflammatory Drug take 1 tablet by mouth every twelve hours as needed diclofenac, EC, (VOLTAREN) 75 mg EC tablet Take 75 mg by mouth twice daily as needed. Active doxycycline hyclate 100 mg oral tablet (2 sources) Tetracycline-class Drug Start: End: doxycycline (Vibra-Tabs) 100 MG tablet Indications: Acute bronchitis, unspecified organism Take 1 tablet (100 mg) by mouth in the morning and 1 tablet (100 mg) before bedtime. Do all this for 10 days. Take with a full glass of water and do not lie down for at least 30 minutes after.. 20 tablet 08/14/2024 08/24/2024 Active escitalopram 20 mg oral tablet (20 sources) Serotonin Reuptake Inhibitor Start: End: take 1 tablet by mouth at mealtime escitalopram (Lexapro) 20 MG tablet Indications: Anxiety Take 1 tablet (20 mg) by mouth in the evening. Take with meals 100 tablet 3 12/15/2023 12/14/2024 Active esomeprazole 40 mg delayed release oral capsule (6 sources) Proton Pump Inhibitor esomeprazole (NEXIUM ) 40 mg capsule Take 40 mg by mouth. Active ezetimibe 10 mg / simvastatin 40 mg oral tablet (6 sources) HMG-CoA Reductase Inhibitor, Dietary Cholesterol Absorption Inhibitor ezetimibe-simvastati n 10-40 mg (VYTORIN) 10-40 mg per tablet Take by mouth. Active famotidine 20 mg oral tablet (20 sources) Histamine-2 Receptor Antagonist Start: famotidine (PEPCID) 20 mg tablet Take 20 mg by mouth. 07/07/2023 Active fenofibrate 160 mg oral tablet (20 sources) Peroxisome Proliferator Receptor alpha Agonist Start: End: take 1 tablet by mouth once daily in the morning fenofibrate (Triglide) 160 MG tablet Indications: Hyperlipidemia, unspecified hyperlipidemia type (CMS/HCC) TAKE 1 TABLET BY MOUTH ONCE DAILY IN THE MORNING 40 tablet 11/06/2024 11/06/2024 Discontinued (Reorder) Start: 10-26-2023 End: 10-25-2024 take 1 tablet by mouth in the morning fenofibrate (Triglide) 160 MG tablet Indications: Hyperlipidemia, unspecified hyperlipidemia type (CMS/HCC) Take 1 tablet (160 mg) by mouth in the morning. 100 tablet 3 10/26/2023 Active ferrous sulfate 325 mg oral tablet (20 sources) Start: 05-02-2024 End: 08-24-2024 take 1 tablet by mouth once daily in the morning, then take 1 tablet by mouth once daily at mealtime FeroSuL 325 mg (65 mg iron) tablet take 1 tablet by mouth every morning and 1 tablet every evening with meals 60 tablet 2 05/02/2024 08/24/2024 Discontinued (Reorder) Start: 01-18-2024 take 1 tablet by margo th in the morning ferrous sulfate 325 (65 Fe) MG tablet Take 325 mg by mouth in the morning and 325 mg in the evening. Take with meals. 01/18/2024 Active fexofenadine hydrochloride 180 mg oral tablet (20 sources) Histamine-1 Receptor Antagonist fexofenadine (Ally Allergy) 180 MG tablet 1 (one) time each day at the same time. Active fluticasone propionate 0.05 mg/actuat metered dose nasal spray (20 sources) Corticosteroid Start: 08-23-20 End: 08-22-20 24 take 1-2 spray(s) nasal route in the morning fluticasone (Flonase) 50 MCG/ACT nasal spray Indications: Allergic rhinitis due to pollen, unspecified seasonality Administer 1-2 sprays into each nostril in the morning. Shake gently. Before first use, prime pump. After use, clean tip and replace cap.. 16 g 2 08/23/2023 Active Start: 08-23-2023 End: 08-22-2024 fluticasone propionate (FLON ASE) 50 mcg/actuation nasal spray 1-2 sprays in the morning. 0 08/23/2023 01/07/2024 Discontinued hydrALAZINE hydrochloride 100 mg oral tablet (20 sources) Arteriolar Vasodilator Start: 07-26-2023 take 1 tablet by mouth in the morning hydrALAZINE (Apresoline) 100 MG tablet Take 100 mg by mouth in the morning. 07/26/2023 Active Start: 07-26-2023 End: 02-10-2024 take 1 [...] than 170. 120 tablet 11 02/10/2024 Active hydrALAZINE (Apr esoline) 50 MG tablet Take 50 mg by mouth Only if bp is above 170, an hour after taking 100mg hydralazine. Active hydroCHLOROthiazide 12.5 mg / lisinopril 20 mg oral tablet (20 sources) Thiazide Diuretic, Angiotensin Converting Enzyme Inhibitor [...] Take 1 tablet by mouth every morning. 06/01/2023 Active Start: 06-01-2023 take 1 tablet by margo th once in the morning lisinopril-hydroCHLOROthiazide (ZESTORET IC) 20-12.5 mg per tablet Indications: Essential hypertension Take 1 tablet by mouth in the morning. 90 tablet 3 06/01/2023 Active hydroCHLOROthiazide 25 mg / losartan potassium 100 mg oral tablet (6 sources) Thiazide Diuretic, Angiotensin 2 Receptor To Start: 01-24-2018 take 1 tablet by mouth once daily losartan-hydrochlorothiazide (HYZAAR) 100-25 mg per tablet Take 1 tablet by mouth once daily. 1 01/24/2018 Active iv contrast (will be provided with radiology test) (2 sources) Start: 09-26-2024 End: 09-27-2024 inject 1 dose intravenously once iv contrast [...] MR contrast administration guidelines link 1 Each 09/26/2024 09/27/2024 Active Start: 05-09-2024 End: 05-10-2024 inject 1 dose [...] link 1 Each 0 05/09/2024 05/10/2024 Active L.acidoph/B.animalis/B.longu m (FLORAJEN DIGESTION ORAL) (7 sources) take 1 tablet by mouth in the morning L.acidoph/B.animalis/B.longum (FLORAJEN DIGESTION ORAL) Take 1 tablet by mouth in the morning. Active take 1 tablet by margo th in the morning L.acidoph/B.animalis/B.longum (FLORAJEN DIGESTION ORAL) Take 1 tablet by mouth in the morning. 0 Active lactobacillus acidophilus 16 mg oral capsule (20 sources) Lactobacillus (F raven Women) capsule as directed Orally Active levothyroxine sodium 0.15 mg oral tablet (20 sources) l-Thyroxine Start: 01-21-2018 take 1 tablet by mouth in the morning levothyroxine (Synthroid, Levoxyl) 150 MCG tablet 1 tablet in the morning on an empty stomach Orally Wed, skip Wednesday02/10/2023 Active Magnesium (20 sources) take 2 tablets by mouth in the morning magnesium 250 mg tablet Indications: for migraine prevention Take 2 tablets (500 mg total) by mouth in the morning. Indications: for migraine prevention. At supper time. Active take 500 mg by mouth in the morn ing MAGNESIUM PO Take 500 mg by mouth in the morning. Active take 500 mg by mouth in [...] Active magnesium gluconate 500 mg oral tablet (6 sources) magnesium glucon ate (MAGONATE) 27 mg (500 mg) tab Take 500 mg by mouth once daily. Active meclizine hydrochloride 25 mg oral tablet (20 sources) Antiemetic meclizine (Antiv ert) 25 MG tablet Take 25 mg by mouth. Active methocarbamol 500 mg oral tablet (17 sources) Muscle Relaxant Start: 04-19-20 take 2 tablets by mouth at bedtime methocarbamol (Robaxin) 500 MG tablet Take 1,000 mg by mouth at bedtime 04/19/2024 Active metoclopramide 10 mg oral tablet (6 sources) Dopamine-2 Receptor Antagonist take 1 tablet by mouth every six hours as needed metoclopramide HCl (REGLAN) 10 mg tablet Take 10 mg by mouth every 6 hours as needed. Active multivitamin tablet (6 sources) take 1 tablet by mouth once daily multivitamin tablet Take 1 tablet by mouth once daily. Active take 1 tablet by mouth once halley y multivitamin tablet Take 1 tablet by mouth once daily. 0 Active multivitamin with minerals ( Centrum) 9-200 mg-mcg tablet split tablet (20 sources) multivitamin wit h minerals (Centrum) 9-200 mg-mcg tablet split tablet multivitamin Multiple Vitamins Active multivitamin wit h minerals (Centrum) 9-200 mg-mcg tablet split tablet multivitamin Multiple Vitamins 0 Active naproxen 250 mg oral tablet (20 sources) Nonsteroidal Anti-inflammatory Drug naproxen (Naprosy n) 250 MG tablet Take by mouth Active NIFEdipine 60 mg osmotic 24 hr extended release oral tablet (20 sources) Dihydropyridine Calcium Channel To Start: 2022 End: 2023 take 1 tablet by mouth every twenty-four hours in the morning NIFEdipine XL (Procardia XL) 60 MG 24 hr tablet Take 60 mg by mouth in the morning. 04/23/2023 Active nitrofurantoin, macrocrystals 25 mg / nitrofurantoin, monohydrate 75 mg oral capsule (1 source) Nitrofuran Antibacterial Start: 2023 End: 2023 take 1 capsule by mouth in the morning nitrofurantoin, macrocrystal-monohydra te, (Macrobid) 100 MG capsule Indications: Acute cystitis without hematuria Take 1 capsule (100 mg) by mouth in the morning and 1 capsule (100 mg) before bedtime. Do all this for 7 days. 14 capsule 07/14/2024 07/21/2024 Active omeprazole 40 mg delayed release oral capsule (20 sources) Proton Pump Inhibitor Start: 2023 End: 2024 take 1 capsule by mouth in the morning omeprazole (PriLOSEC) [address] capsule Indications: Gastroesophageal reflux disease without esophagitis Take 1 capsule (40 mg) by mouth in the morning. 100 capsule 3 08/08/2024 08/08/2025 Active Start: 12-02-2016 omeprazole (CA ILOSEC) 20 mg capsule 20 mg once daily. 12/02/2016 Active 24 hr oxybutynin chloride 10 mg extended release oral tablet (20 sources) Cholinergic Muscarinic Antagonist Start: 11-21-2020 take 1 tablet by mouth once daily oxybutynin XL (Ditropan-XL) 10 MG 24 hr tablet Indications: Stress incontinence of urine take 1 tablet by mouth once daily 90 tablet 3 01/03/2024 Active Start: 11-21-2020 End: 01-03-2024 take 1 tablet by mouth every twenty-four hours oxybutynin ER (DITROPAN XL) 10 mg 24 hr tablet Take 10 mg by mouth. 11/21/2020 Active polyethylene glycol 3350 52842 mg powder for oral solution (3 sources) Osmotic Laxative Start: 07-10-2024 End: 07-13-2024 polyethylene glycol, PEG, 3350 (MiraLax) 17 GM/SCOOP powder Indications: Chronic idiopathic constipation Take 17 g by mouth Daily for 3 days 527 g 2 07/10/2024 07/13/2024 Active predniSONE 20 mg oral tablet (2 sources) Start: 08-14-2024 End: 08-19-2024 take 1 tablet by mouth once daily predniSONE (Deltasone) 20 MG tablet Indications: Acute bronchitis, unspecified organism Take 1 tablet (20 mg) by mouth Daily for 5 days 5 tablet 08/14/2024 08/19/2024 Active therapeutic multivitamin (THERA VITAMIN) tablet (5 sources) therapeutic multivitamin (THERA VITAMIN) tablet Take 1 tablet by mouth. Active therapeutic mult ivitamin (THERA VITAMIN) tablet Take [...] 0 Active tiZANidine 4 mg oral tablet (20 sources) Central alpha-2 Adrenergic Agonist Start: 01-07-2024 [...] 0.5 to 2 tablets by mouth nightly Active topiramate 100 mg oral tablet (6 sources) Start: 12-21-2017 topiramate (TOPAMAX) 100 mg tablet 300 mg once daily. 100 mg in the A.M and 200 at bedtime 0 12/21/2017 Active ubrogepant 100 mg oral tablet (20 sources) Start: 01-07-2024 End: 02-24-2024 take 1 tablet by mouth once as needed UBRELVY 100 mg tablet Indications: Migraine without aura and without status migrainosus, not intractable Take 100 mg by mouth once as needed (migraine) for up to 1 dose. 16 tablet 12 01/07/2024 Active verapamil hydrochloride 120 mg extended release oral tablet (6 sources) Calcium Channel To Start: 12-27-2017 verapamil SR (CALAN SR, ISOPTIN SR) 120 mg CR tablet 1 tablet three times daily. 12/27/2017 Active vitamin b12 1 mg sublingual tablet (16 sources) Vitamin B12 Start: 01-18-2024 End: 08-14-2024 take 1 tablet under the tongue in the morning cyanocobalamin (VITAMIN B12) 1,000 mcg tablet, sublingual Place 1 tablet (1,000 mcg total) under the tongue in the morning. 30 tablet 11 01/18/2024 Active zafirlukast 20 mg oral tablet (20 sources) Leukotriene Receptor Antagonist Start: 01-07-2018 End: [...] TO 7 DAYS 0 11/23/2023 01/07/2024 Discontinued pediatric fttmlmvl-tzph-lty (flintstones complete) tablet,chewable (3 sources) Start: 01-18-2024 End: 02-24-2024 pediatric wzegaklq-betj-hwl (flintstones complete) tablet,chewable Chew 1 tablet and swallow in the morning. 90 tablet 3 01/18/2024 02/24/2024 Discontinued (Duplicate Listing) Start: 01-18-2024 pediatric mult haxh-wkfe-yrj (flintstones complete) tablet,chewable Chew 1 tablet and swallow in the morning. 90 tablet 3 01/18/2024 Active Problems Active Problems Problem Classification Problem Date Documented Da te Episodic/Chronic Acute bronchitis (2 sources) Acute bronchitis; Translations: [Acute bronchitis, unspecified] 08-14-2024 Episodic Asthma (20 sources) Asthma; Translations: [Unspecified asthma, uncomplicated] Onset: 6 06-04-2023 Chronic Chronic kidney disease (20 sources) Chronic kidney disease stage 3B ; Translations: [Stage 3b chronic kidney disease (CKD)] Onset: 3 06-04-2023 Chronic Complications of surgical procedures or medical care (20 sources) Drug-induced hypotension; Translations: [Hypotension due to drugs] Onset: 1 05-23-2021 Episodic Conditions associated with dizziness or vertigo (2 sources) Dizziness; Translations: [Dizziness and giddiness] 04-05-2024 Episodic Conduction disorders (20 sources) First degree atrioventricular block; Translations: [Atrioventricular block, first degree] Onset: 1 06-04-2023 Chronic Disorders of lipid metabolism (20 sources) Hyperlipidemia; Translations: [Other hyperlipidemia] Onset: 5 10-26-2017 Chronic E Codes: Fall (1 source) Fall Onset: 4 Esophageal disorders (20 sources) Gastro-esophageal reflux disease without esophagitis; Translations: [Gastroesophageal reflux disease without esophagitis] Onset: 1 09-15-2021 Chronic Essential hypertension (20 sources) Essential hypertension; Translations: [Essential (primary) hypertension] Onset: 3 03-02-2023 Chronic Fracture of upper limb (1 source) Displaced fracture of proximal phalanx of left little finger, subsequent encounter for fracture with routine healing; Translations: [Displaced fracture of proximal phalanx of left little finger, subsequent encounter for fracture with routine healing] Onset: 2 Episodic Genitourinary symptoms and ill-defined conditions (20 sources) Mixed urinary incontinence; Translations: [Mixed incontinence] Onset: 0 06-04-2023 Chronic Genitourinary symptoms and ill-defined conditions (5 sources) Urinary frequency; Translations: [Dysuria] Onset: 4 07-10-2024 Episodic Miscellaneous mental health disorders (20 sources) Psychophysiologic insomnia; Translations: [Psychophysiologic insomnia] Onset: 9 12-12-2018 Chronic Mood disorders (20 sources) Depressive disorder; Translations: [Other specified depressive episodes] Onset: 7 02-12-2017 Chronic Mycoses (2 sources) Onychomycosis due to dermatophyte ; Translations: [Tinea unguium] 10-30-2024 Episodic Nausea and vomiting (7 sources) Postoperative nausea and vomiting; Translations: [Nausea with vomiting, unspecified] 06-24-2021 Episodic Nutritional deficiencies (2 sources) Vitamin D deficiency, unspecified; Translations: [Vitamin D deficiency, unspecified] Onset: 4 Chronic Osteoarthritis (20 sources) Osteoarthritis of right knee joint; Translations: [Unilateral primary osteoarthritis, right knee] Onset: 1 06-04-2023 Chronic Osteoporosis (20 sources) Senile osteoporosis; Translations: [Age-related osteoporosis without [...] 04-05-2024 Chronic Other and unspecified benign neoplasm (3 sources) Benign neoplasm of meninges; Translations: [Benign neoplasm of meninges, unspecified] 05-09-2024 Chronic Other and unspecified benign neoplasm (3 sources) Benign neoplasm of meninges, unspecified; Translations: [Benign neoplasm of meninges, unspecified] Onset: 4 Chronic Other and unspecified benign neoplasm (1 source) Benign neoplasm of cranial nerves; Translations: [Benign neoplasm of cranial nerves] Onset: 4 Chronic Other connective tissue disease (20 sources) Cramp in lower limb; Translations: [Sleep related leg cramps] Onset: 3 06-04-2023 Chronic Other connective tissue disease (1 source) Trigger finger, right ring finger; Translations: [Trigger finger, right ring finger] Onset: 8 Episodic Other connective tissue disease (1 source) Pain in left hand; Translations: [Pain in left hand] Onset: 2 Episodic Other connective tissue disease (4 sources) Pain in toe; Translations: [Pain in right toe(s)] 10-30-2024 Episodic Other ear and sense organ disorders (1 source) Decreased hearing ; Translations: [Unspecified hearing loss, bilateral] 01-07-2024 Chronic Other ear and sense organ disorders (1 source) Sensorineural hearing loss in right ear; Translations: [Unspecified sensorineural hearing loss] 04-05-2024 Chronic Other ear and sense organ disorders (1 source) Unspecified hearing loss, bilateral; Translations: [Unspecified hearing loss, bilateral] Onset: 4 Chronic Other gastrointestinal disorders (20 sources) Chronic idiopathic constipation; Translations: [Chronic idiopathic constipation] Onset: 9 07-10-2019 Chronic Other hereditary and degenerative nervous system conditions (20 sources) Essential tremor; Translations: [Essential tremor] Onset: 9 12-12-2018 Chronic Other hereditary and degenerative nervous system conditions (2 sources) Essential tremor; Translations: [Essential tremor] Onset: 9 Chronic Other nervous system disorders (7 sources) Chronic [...] Onset: 4 Chronic Other nervous system disorders (15 sources) Lesion of brain; Translations: [Disorder of brain, unspecified] Onset: 4 02-15-2024 Chronic Other screening for suspected conditions (not mental disorders or infectious disease) (1 source) Abnormal findings on diagnostic imaging of other specified body structures; Translations: [Abnormal findings on diagnostic imaging of other specified body structures] Onset: 4 Chronic Other skin disorders (2 sources) Dystrophia unguium; Translations: [Nail dystrophy] 10-30-2024 Episodic Other upper respiratory disease (2 sources) Allergic rhinitis due to pollen; Translations: [Allergic rhinitis due to pollen] 08-14-2024 Chronic Other upper respiratory disease (2 sources) Hoarse; Translations: [Dysphonia] 08-08-2024 Episodic Other upper respiratory infections (2 sources) Posterior rhinorrhea; Translations: [Chronic sinusitis, unspecified] 08-08-2024 Chronic Spondylosis; intervertebral disc disorders; other back problems (20 sources) Prolapsed lumbar intervertebral disc; Translations: [Other intervertebral disc displacement, lumbar region] Onset: 1 Resolved: 3 01-07-2017 Chronic Thyroid disorders (20 sources) Acquired hypothyroidism; Translations: [Hypothyroidism, unspecified] Onset: 9 03-02-2023 Chronic Unclassified (1 source) EMS Onset: 4 Unclassified (9 sources) Patient on antidepressant monitoring plan Onset: 4 08-08-2024 Past or Other Problems Problem Classification Problem Date Documented Da te Episodic/Chronic Acute and unspecified renal failure (7 sources) Acute injury of kidney; Translations: [Acute kidney failure, unspecified] Onset: 03-02-2023 03-02-2023 Episodic Acute cerebrovascular disease (7 sources) Hematoma of subdural space of neuraxis; Translations: [SDH (subdural hematoma)] Onset: 01-04-2018 Resolved: 07-01-2021 07-01-2021 Chronic Adjustment disorders (20 sources) Adjustment disorder with anxious mood; Translations: [Adjustment disorder with anxiety] Onset: 05-04-2023 Resolved: 10-24-2023 10-24-2023 Chronic Calculus of urinary tract (20 sources) Kidney stone; Translations: [Calculus of kidney] Onset: 03-02-2023 03-02-2023 Episodic Diabetes mellitus without complication (3 sources) Prediabetes; Translations: [Prediabetes] Onset: 01-07-2024 01-07-2024 Episodic E Codes: Fall (1 source) Unspecified fall, initial encounter; Translations: [Unspecified fall, initial encounter] Onset: 02-11-2024 Episodic Headache; including migraine (20 sources) Migraine without aura, not refractory ; Translations: [Migraine without aura, not intractable, without status migrainosus] Onset: 12-12-2018 Resolved: 10-24-2023 12-12-2018 Chronic Malaise and fatigue (11 sources) Asthenia; Translations: [Weakness] Onset: 11-04-2016 11-04-2016 Episodic Mood disorders (20 sources) Mood disorders Onset: 04-23-2023 Resolved: 12-06-2023 04-23-2023 Other circulatory disease (7 sources) Low blood pressure; Translations: [Hypotension, unspecified] Onset: 03-02-2023 03-02-2023 Episodic Other connective tissue disease (20 sources) Bilateral trochanteric bursitis; Translations: [Trochanteric bursitis, right hip] Onset: 11-03-2017 11-03-2017 Episodic Other connective tissue disease (20 sources) Impingement syndrome of right shoulder region; Translations: [Impingement syndrome of right shoulder] Onset: 08-14-2011 06-22-2018 Episodic Other connective tissue disease (8 sources) Muscle spasm of cervical muscle of neck; Translations: [Other muscle spasm] Onset: 05-05-2019 05-05-2019 Episodic Other connective tissue disease (7 sources) Nocturnal muscle spasm ; Translations: [Other muscle spasm] Onset: 06-12-2019 06-12-2019 Episodic Other connective tissue disease (20 sources) Recurrent falls ; Translations: [Repeated falls] Onset: 11-01-2017 06-04-2023 Episodic Other connective tissue disease (20 sources) History of lumbar fusion; Translations: [Arthrodesis status] Onset: 12-11-2015 06-04-2023 Episodic Other connective tissue disease (1 source) Other muscle spasm; Translations: [Other muscle spasm] Onset: 06-12-2019 Episodic Other injuries and conditions due to external causes (20 sources) History of fall; Translations: [History of falling] Onset: 11-04-2023 12-23-2023 Episodic Other injuries and conditions due to external causes (1 source) Unspecified injury of head, initial encounter; Translations: [Unspecified injury of head, initial encounter] Onset: 02-11-2024 Episodic Other lower respiratory disease (7 sources) Dyspnea; Translations: [Shortness of breath] Onset: 11-06-2019 11-06-2019 Episodic Other lower respiratory disease (1 source) Solitary pulmonary nodule; Translations: [Solitary pulmonary nodule] Onset: 02-11-2024 Episodic Other lower respiratory disease (15 sources) Nodule of lung; Translations: [Solitary pulmonary nodule] Onset: 02-15-2024 02-15-2024 Episodic Other nervous system disorders (20 sources) Impairment of balance; Translations: [Other abnormalities [...] of mental health and substance abuse codes (20 sources) H/O: depression; Translations: [Personal history of other mental and behavioral disorders] Onset: 2018 2018 Episodic Spondylosis; intervertebral disc disorders; other back problems (20 sources) Spinal stenosis of lumbar region; Translations: [Spinal stenosis, lumbar region without neurogenic claudication] Onset: 08-14-2011 Resolved: 10-24-2023 12-22-2022 Episodic Urinary tract infections (2 sources) Acute cystitis; Translations: [Acute cystitis without hematuria] 07-14-2024 Episodic Results Test Name Value Interpretation Reference Range Facility [facility] 10-04-2024 CNPN Telephone (NSCAMN) -- ANGELA RUTH ([id number]) 1945 F Date Time Provider Department 10/04/24 ROSE VELASQUEZ [facility] During your visit today, we recorded the following information about you: Hussein Jessica 10/04/2024 3:20 PM Signed General Call Caller : Angela Contact Reason for Call : Did you speak with Dr. Hoover regarding her most recent appt? Patient requesting return call ? Yes Rose Velasquez, [employer] 10/06/2024 10:09 AM Signed Voicemail left for Angela at [phone]. Call back number given. 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 My note was forward to Dr. Hoover for review. At this time we recommend follow up and new imaging in 1 year. Rose Velasquez, MSN, [employer]BE [employer]ER [employer] CUTTER OPERATOR, X RAY INSPECTOR Certified Nurse Practitioner Allergies As of Date: 10/04/2024 Noted Allergy Reaction LINCOSAMIDES 02/12/2017 10 - [...] PENICILLINS 11/04/2016 2 - Rash Date Reviewed: 09/26/2024 Reviewed by: Tay Bonilla LPN - Fully Assessed Reason for Visit: Patient Question [1477] Prescriptions as of 10/06/2024 - hydrALAZINE (APRESOLINE) 100 mg tablet take 1 tablet by mouth twice a day then MAY TAKE ADDITIONAL (50 M... (REFER TO PRESCRIPTION NOTES). - lisinopril-hydroCHLOROthia zide (ZESTORETIC) 20-12.5 mg per tablet Take 1 tablet by mouth every morning. - oxybutynin ER (DITROPAN XL) 10 mg 24 hr tablet Take 10 mg by mouth. - ferrous sulfate 325 mg (65 mg iron) tablet Take 325 mg by mouth. - famotidine (PEPCID) 20 mg tablet Take 20 mg by mouth. - alendronate (FOSAMAX) 70 mg tablet Take 70 mg by mouth one time a week. - naproxen (NAPROSYN) 250 mg tablet Take by mouth as directed. - therapeutic multivitamin (THERA VITAMIN) tablet Take 1 tablet by mouth. - acetaminophen (TYLENOL) 500 mg tablet Take 500-1,000 mg by mouth three times daily as needed. - PROAIR HFA 90 mcg/actuation inhaler as needed. - amitriptyline (ELAVIL) 100 mg tablet Take 100 mg by mouth daily at bedtime. - atorvastatin (LIPITOR) 40 mg tablet Take 40 mg by mouth once daily. - carvedilol (COREG) 25 mg tablet Take 25 mg by mouth twice daily. - cholecalciferol (VITAMIN D3) 1,000 unit tab tablet 1,000 Units once daily. - diclofenac, EC, (VOLTAREN) 75 mg EC tablet Take 75 mg by mouth twice daily as needed. - escitalopram oxalate (LEXAPRO) 20 mg tablet Take 20 mg by mouth once daily. - losartan-hydrochlorothiazi de (HYZAAR) 100-25 mg per tablet Take 1 tablet by mouth once daily. - ezetimibe-simvastatin 10-40 mg (VYTORIN) 10-40 mg per tablet Take by mouth. - esomeprazole (NEXIUM) 40 mg capsule Take 40 mg by mouth. - Fenofibrate (LOFIBRA) 160 mg tablet Take 160 mg by mouth once daily. - fexofenadine (ALLY) 180 mg tablet Take 180 mg by mouth once daily. - levothyroxine (SYNTHROID) 150 mcg tablet 1 tablet once daily. - meclizine (ANTIVERT) 25 mg tab Take 25 mg by mouth three times daily as needed. - omeprazole (PRILOSEC) 20 mg capsule 20 mg once daily. - acetaminophen-dichloralphe nazone-isometheptene (MIDRIN) 65-100-325 mg per capsule 1 capsule four times daily as needed. - cyclobenzaprine (FLEXERIL) 5 mg tablet Take 10 mg by mouth three times daily as needed. - verapamil SR (CALAN SR, ISOPTIN SR) 120 mg CR tablet 1 tablet three times daily. - zafirlukast (ACCOLATE) 20 mg tablet 1 tablet twice daily. - metoclopramide HCl (REGLAN) 10 mg tablet Take 10 mg by mouth every 6 hours as needed. - magnesium gluconate (MAGONATE) 27 mg (500 mg) tab Take 500 mg by mouth once daily. - multivitamin tablet Take 1 tablet by mouth once daily. - calcium carbonate-vitamin D3 600 mg(1,500mg) -800 unit tab Take 1 tablet by mouth once daily. - topiramate (TOPAMAX) 100 mg tablet 300 mg once daily. 100 mg in the A.M and 200 at bedtime Problem List As Of Date 10/04/2024 Noted Resolved Chronic midline low back pain with sciatica [M5*01/27/2018 Encounter Status:Closed by ROSE VELASQUEZ on 10/06/24 [facility]OVon 09-26-2024 [facility] Office Visit ([facility] ) -- ANGELA RUTH ([id number]) 1945 F Date Time Provider Department 09/26/24 1:45 PM ROSE VELASQUEZ [facility] During your visit today, we recorded the following information about you: Pulse Blood pressure Weight 91/minute 143/81 67 kg Rose Velasquez APRN.X RAY INSPECTOR 09/26/2024 3:27 PM Signed [facility] NEURO-ONCOLOGY OUTPATIENT CLINIC NOTE PURPOSE OF VISIT: Consultation requested by Dr. Hoover for an opinion regarding meningioma and my final recommendations will be communicated to the referring physician by way of shared medical record or letter to requesting physician via US mail. 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 Imaging originally done in workup of a fall. She did note worsening balance and worsening hearing loss on the Right. Of note, she follows with pain management and her medical history is significant for several spine surgeries now fused from L3-L5, s/p C2-3, C3-4 radiofrequency ablations INTERVAL HISTORY: 09/26/24 Here today with new imaging to review, accompanied by her granddaughter. She continues to have worsening balance. Her hearing is stable, worse on the Right. She was last seen by Dr. Hoover 04/04/24. She continues to follow with pain management, getting injections in her neck and back. She also has a pain patch, she wears on her back and takes Tylenol for headaches. Her granddaughter also notes worsening memory; not too concerning at this time. SOCIAL HISTORY: Social History Tobacco Use Smoking status: Never Smokeless tobacco: Never Substance Use Topics Alcohol use: No Drug use: Never No past medical history on file. No family history on file. Current Outpatient Medications Medication Sig hydrALAZINE (APRESOLINE) 100 mg tablet take 1 tablet by mouth twice a day then MAY TAKE ADDITIONAL (50 M... (REFER TO PRESCRIPTION NOTES). lisinopril-hydroCHLOROthia zide (ZESTORETIC) 20-12.5 mg per tablet Take 1 tablet by mouth every morning. oxybutynin ER (DITROPAN XL) 10 mg 24 hr tablet Take 10 mg by mouth. ferrous sulfate 325 mg (65 mg iron) tablet Take 325 mg by mouth. famotidine (PEPCID) 20 mg tablet Take 20 mg by mouth. alendronate (FOSAMAX) 70 mg tablet Take 70 mg by mouth one time a week. naproxen (NAPROSYN) 250 mg tablet Take by mouth as directed. therapeutic multivitamin (THERA VITAMIN) tablet Take 1 tablet by mouth. acetaminophen (TYLENOL) 500 mg tablet Take 500-1,000 [...] mg by mouth twice daily as needed. (Patient not taking: Reported on 04/04/2024) escitalopram oxalate (LEXAPRO) 20 mg tablet Take 20 mg by mouth once daily. losartan-hydrochlorothiazi de (HYZAAR) 100-25 mg per tablet Take 1 tablet by mouth once daily. (Patient not taking: Reported on 04/04/2024) ezetimibe-simvastatin 10-40 mg (VYTORIN) 10-40 mg per tablet Take by mouth. (Patient not taking: Reported on 04/04/2024) esomeprazole (NEXIUM) 40 mg capsule Take 40 mg by mouth. Fenofibrate (LOFIBRA) 160 mg tablet Take 160 mg by mouth once daily. fexofenadine (ALLY) 180 mg tablet Take 180 mg by mouth once daily. levothyroxine (SYNTHROID) 150 mcg tablet 1 tablet once daily. meclizine (ANTIVERT) 25 mg tab Take 25 mg by mouth three times daily as needed. (Patient not taking: Reported on 04/04/2024) omeprazole (PRILOSEC) 20 mg capsule 20 mg once daily. acetaminophen-dichloralphe nazone-isometheptene (MIDRIN) 65-100-325 mg per capsule 1 capsule four times daily as needed. cyclobenzaprine (FLEXERIL) 5 mg tablet Take 10 mg by mouth three times daily as needed. (Patient not taking: Reported on 04/04/2024) verapamil SR (CALAN SR, ISOPTIN SR) 120 mg CR tablet 1 tablet three times daily. (Patient not taking: Reported on 04/04/2024) zafirlukast (ACCOLATE) 20 mg tablet 1 tablet twice daily. (Patient not taking: Reported on 04/04/2024) metoclopramide HCl (REGLAN) 10 mg tablet Take 10 mg by mouth every 6 hours as needed. (Patient not taking: Reported on 04/04/2024) magnesium gluconate (MAGONATE) 27 mg (500 mg) tab Take 500 mg by mouth once daily. multivitamin tablet Take 1 tablet by mouth once daily. calcium carbonate-vitamin D3 600 mg(1,500mg) -800 unit tab Take 1 tablet by mouth once daily. topiramate (TOPAMAX) 100 mg tablet 300 mg once daily. 100 mg in the A.M and 200 at bedtime (Pat (more content not included)... Normal [facility] MR Brain WO and W contrast I Von 09-26-2024 IMPRESSION: Stable size of a RIGHT petrous ridge presumed meningioma compared to 03/02/2024. Canvas Repairer: ALLYSSA Transcribe Date/Time: Sep 26 2024 2:10P Dictated by : MAUREEN PEARL MD This examination was interpreted and the report reviewed and electronically signed by: MAUREEN PEARL MD on Sep 26 2024 2:14PM [facility] DIVISION OF RADIOLOGY * * *Final Report* * * DATE OF EXAM: Sep 26 2024 12:29PM [facility] 0295 - MRI BRAIN WO/W IVCON / PROCEDURE REASON: Benign neoplasm of meninges (HCC) * * * * Physician Interpretation * * * * EXAMINATION: MRI BRAIN WO/W IVCON CLINICAL HISTORY: Meningioma TECHNIQUE: Routine brain MRI protocol without and with contrast including diffusion images. MQ: MRBWOW_2 Contrast: 14 mL mL Dotarem IV COMPARISON: Outside MR 03/02/2024 RESULT: Acute Change: There is no evidence of restricted diffusion to suggest an acute infarct. Hemorrhage: No evidence of prior parenchymal hemorrhage on the susceptibility weighted images. Mass Lesion/ Mass Effect: Stable size of a 12 x 9 x 12 mm AP by TR by CC dural based extra-axial mass along the RIGHT petrous ridge (series 10 image 114) compared to 03/02/2024. Chronic Change: Scattered patchy areas of increased T2 and FLAIR signal are present in the supratentorial white matter which is a nonspecific finding but likely represents mild chronic microvascular ischemia. Parenchyma: There is mild generalized parenchymal volume loss. The brain parenchyma is otherwise within normal limits of signal intensity and morphology. Ventricles: Normal caliber and morphology. Skull Base: Hypothalamic and pituitary region are grossly normal. Craniocervical junction is normal. No significant marrow replacement process. Vasculature: Major intracranial arterial structures, and dural venous sinuses show typical flow void, suggesting patency by spin echo criteria. Other: Hyperostosis frontalis interna. Mild mucosal thickening RIGHT maxillary sinus. Mastoid air cells are clear. Bilateral lens replacements. The orbits and extracranial soft tissues otherwise unremarkable. DIVISION OF RADIOLOGY Provider, [facility] - 09/26/2024 * * *Final Report* * * DATE OF EXAM: Sep 26 2024 12:29PM [facility] 0295 - MRI BRAIN WO/W IVCON / PROCEDURE REASON: Benign neoplasm of meninges (HCC) * * * * Physician Interpretation * * * * EXAMINATION: MRI BRAIN WO/W IVCON CLINICAL HISTORY: Meningioma TECHNIQUE: Routine brain MRI protocol without and with contrast including diffusion images. MQ: MRBWOW_2 Contrast: 14 mL mL Dotarem IV COMPARISON: Outside MR 03/02/2024 RESULT: Acute Change: There is no evidence of restricted diffusion to suggest an acute infarct. Hemorrhage: No evidence of prior parenchymal hemorrhage on the susceptibility weighted images. Mass Lesion/ Mass Effect: Stable size of a 12 x 9 x 12 mm AP by TR by CC dural based extra-axial mass along the RIGHT petrous ridge (series 10 image 114) compared to 03/02/2024. Chronic Change: Scattered patchy areas of increased T2 and FLAIR signal are present in the supratentorial white matter which is a nonspecific finding but likely represents mild chronic microvascular ischemia. Parenchyma: There is mild generalized parenchymal volume loss. The brain parenchyma is otherwise within normal limits of signal intensity and morphology. Ventricles: Normal caliber and morphology. Skull Base: Hypothalamic and pituitary region are grossly normal. Craniocervical junction is normal. No significant marrow replacement process. Vasculature: Major intracranial arterial structures, and dural venous sinuses show typical flow void, suggesting patency by spin echo criteria. Other: Hyperostosis frontalis interna. Mild mucosal thickening RIGHT maxillary sinus. Mastoid air cells are clear. Bilateral lens replacements. The orbits and extracranial soft tissues otherwise unremarkable. IMPRESSION IMPRESSION: Stable size of a RIGHT petrous ridge presumed meningioma compared to 03/02/2024. Canvas Repairer: ALLYSSA Transcribe Date/Time: Sep 26 2024 2:10P Dictated by : MAUREEN PEARL MD This examination was interpreted and the report reviewed and electronically signed by: MAUREEN PEARL MD on Sep 26 2024 2:14PM EST [facility] Radiology Study observation (narrative) Ayana gaxiola [facility] MR Brain WO and W contrast I VOrdered By: [facility] Provider on 09-26-2024 [facility] MRI BRAIN WO/W IVCONon 09-26 MRI BRAIN WO/W IVCON * * *Final Report* * * DATE OF EXAM: Sep 26 2024 12:29PM [facility] 0295 - MRI BRAIN WO/W IVCON / PROCEDURE REASON: Benign neoplasm of meninges (HCC) * * * * Physician Interpretation * * * * EXAMINATION: MRI BRAIN WO/W IVCON CLINICAL HISTORY: Meningioma TECHNIQUE: Routine brain MRI protocol without and with contrast including diffusion images. MQ: MRBWOW_2 Contrast: 14 mL mL Dotarem IV COMPARISON: Outside MR 03/02/2024 RESULT: Acute Change: There is no evidence of restricted diffusion to suggest an acute infarct. Hemorrhage: No evidence of prior parenchymal hemorrhage on the susceptibility weighted images. Mass Lesion/ Mass Effect: Stable size of a 12 x 9 x 12 mm AP by TR by CC dural based extra-axial mass along the RIGHT petrous ridge (series 10 image 114) compared to 03/02/2024. Chronic Change: Scattered patchy areas of increased T2 and FLAIR signal are present in the supratentorial white matter which is a nonspecific finding but likely represents mild chronic microvascular ischemia. Parenchyma: There is mild generalized parenchymal volume loss. The brain parenchyma is otherwise within normal limits of signal intensity and morphology. Ventricles: Normal caliber and morphology. Skull Base: Hypothalamic and pituitary region are grossly normal. Craniocervical junction is normal. No significant marrow replacement process. Vasculature: Major intracranial arterial structures, and dural venous sinuses show typical flow void, suggesting patency by spin echo criteria. Other: Hyperostosis frontalis interna. Mild mucosal thickening RIGHT maxillary sinus. Mastoid air cells are clear. Bilateral lens replacements. The orbits and extracranial soft tissues otherwise unremarkable. 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 Canvas Repairer: ALLYSSA Transcribe Date/Time: Sep 26 2024 2:10P Dictated by : MAUREEN PEARL MD This examination was interpreted and the report reviewed and electronically signed by: MAUREEN PEARL MD on Sep 26 2024 2:14PM EST [id number] Normal [facility] Measure post void residualon 08-29-2024 Volume 56 mL [facility] POCT Urinalysis Auto, W/O Mi croscopyon 08-29-2024 External Poct Urine Blood Negative [facility] External Poct Urine Glucose Negative [facility] External Poct Urine Ketones Negative [facility] External Poct Urine Leukocyte Esterase Negative [facility] External Poct Urine Nitrite Negative [facility] External Poct Urine Ph 7.0 Pr [facility] External Poct Urine Protein Negative [facility] [address] [facility] Laboratory - Microbiology an d Antimicrobial susceptibilityon 08-16-2024 SARS-CoV-2 (COVID-19) RNA MICHAEL+probe Ql (Unsp spec) Negative [facility] No Panel Informationon 08-16 FLU A Negative [facility] FLU B Negative [facility] Interpretation and review of laboratory results Normal [facility] XR Thoracic spine 3 Viewson 07-11-2024 EXAM: XR Thoracic Spine, Five Views. REASON [...] report is generated using voice recognition reporting (Grooveshark). On occasion [employer] erroneously drops words from the report or replaces the spoken word with similar sounding words. Please call with any questions/concerns regarding this report.* Dictated and transcribed 07/11/2024/tm This report has been electronically signed and approved by the interpreting radiologist. Electronically Signed Shubham Almodovar II, M.D. 2024-07-11 10:01:04 IMAGING Shubham Almodovar MD - 07/11/2024 EXAM: XR Thoracic Spine, Five Views. REASON [...] report is generated using voice recognition reporting (Grooveshark). On occasion [employer] erroneously drops words from the report or replaces the spoken word with similar sounding words. Please call with any questions/concerns regarding this report.* Dictated and transcribed 07/11/2024/tm This report has been electronically signed and approved by the interpreting radiologist. Electronically Signed Shubham Almodovar II, M.D. 2024-07-11 10:01:04 [facility] [employer] XR Thoracic spine 3 ViewsOrd ered By: Shubham Almodovar on 07-11-2024 [facility] [employer] Work Phone: CALCIUMon 07-10-2024 Calcium [Mass/Vol] 9.5 mg/dL Normal 8.5-10.5 [facility] Comment on above: Performed By: #### 1 3965-9, CBCA, FEPR, THYR, 2276-4, 2132-9, 2284-8, IMEL, SPE #### [facility] ([id number]) [address], [address] [place] [address] #### MTHFRS #### [facility] ([id number]) [address] [place] [address] 87393 THYROID PROFILEon 07-10-2024 Free T4 [Mass/Vol] 1.24 ng/dL Normal 0.61-1.60 [facility] Comment on above: Performed By: #### 1 3965-9, CBCA, FEPR, THYR, 2276-4, 2132-9, 2284-8, IMEL, SPE #### [facility] ([id number]) [address] [place] [address], [address] [place] [address] #### MTHFRS #### [facility] ([id number]) [address] [place] [address] 10537 TSH 1.37 uIU/mL Normal 0.49-4.67 [facility] Comment on above: Performed By: #### 1 3965-9, CBCA, FEPR, THYR, 2276-4, 2-9, 2284-8, IMEL, SPE #### [facility] ([id number]) [address] [place] [address], [address] [place] [address] #### MTHFRS #### [facility] ([id number]) [address] [place] [address] Urinalysis macro (dipstick) panel (U)on 07-10-2024 Bilirubin, UA Negative Negative - 4(70) +++ mg/dL [facility] Blood, UA Positive Negative - 50 Darryl/mcL [facility] Clarity, UA Cloudy [facility] Color, UA Yellow [facility] Glucose, UA Negative Negative - 2000(110) ++++ mg/dL [facility] Interpretation and review of laboratory results Abnormal [facility] Ketones, UA Negative Negative - 160(16) ++++ mg/dL [facility] Leukocytes, UA 3+ Negative - 500+++ Obdulio/mcL [facility] Nitrite, UA Positive Negative - Positive [facility] pH, UA 6.5 5 - 9 [facility] Protein, UA 2+ Negative - 2000(20) ++++ mg/dL [facility] Spec Grav, UA 1.010 1 - 1.03 [facility] Urobilinogen, UA 1.0 0.2 - 12 mg/dL [facility] Vitamin D+Metabolites [Mass/ Vol]on 07-10-2024 VITAMIN D 25 HYD TOT 78.8 ng/mL Normal 30-100 [facility] Comment on above: Result Comment: Vitamin D status 25 [place] Vitamin D Deficiency <20 ng/mL Insufficiency 20-29 ng/mL Sufficiency 30-100 ng/mL Toxicity >100 ng/mL NOTE: A pediatric reference range has not been established by the craps dealer of this kit. The [place] [employer] recommends a Vitamin D level of = or >20ng/mL in infants and children. Performed By: #### 1 3965-9, CBCA, FEPR, THYR, 2276-4, 2132-9, 2284-8, IMEL, SPE #### [facility] ([id number]) [address] [facility] [address], [address] [place] [address] #### MTHFRS #### [facility] ([id number]) [address] [place] [address], [place] [address] XR THORACIC SPINE 3 VIEWSon 07-10-2024 XR [...] report is generated using voice recognition reporting (Grooveshark). On occasion [employer] erroneously drops words from the report or replaces the spoken word with similar sounding words. Please call with any questions/concerns regarding this report.* Dictated and transcribed 07/11/2024/tm This report has been electronically signed and approved by the interpreting radiologist. Electronically Signed Shubham Almodovar II, M.D. 2024-07-11 10:01:04 Normal Not Available XR Thoracic spine 3 Viewson 07-10-2024 Radiology Study observation (narrative) [facility] CNOVon 04-04-2024 CNOV Office Visit (NSCAMN ) -- ANGELA RUTH ([id number]) 1945 F Date Time Provider Department 04/04/24 [...] [facility] [place], [facility] CC: Patient Care Team: Bia Cao as PCP ([facility]) Ileana Cortes MD as NI Referring Team [...] ([place]/West side preference). 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 Cao to investigate other etiologies of imbalance. We contacted Dr. aCo via telephone with our recommendations. 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 The [...] contrast and shows a 1.2 cm R INSPECTOR MACHINE CUT GLASS contrast-enhancing lesion concerning for either schwannoma or meningioma- no associated mass effect or edema. The patient takes ASA 81 mg daily for cardioprotection per her PCP. The patient has been using a cane for the last 5-6 years. The patient reports that ~6 weeks ago, she walked into her garage door and fell. The patient has not seen an organ pipe finisher or a vestibular therapist. Past Medical History: [...] Units once (more content not included)... Normal [facility] 03-24-2024 [facility] Telephone (NIQ) -- ANGELA RUTH ([id number]) 1945 F Date Time Provider Department 03/24/[address] [facility] During your visit today, we recorded the following information about you: Shelli Fletcher 03/24/2024 5:01 PM Signed Referral source: Ileana Cortes MD ([facility]) Reason for visit: consideration of gamma knife for 1.2 cm enhancing lesion at right cerebelloponitine angle with leading differential including vestibular schwannoma and meningioma External records: Sent with referral and pulled from [facility] Triage: Required, forwarded to [facility] by telephone encounter sent to [facility] Scheduling Triage. Financial clearance: Not required to schedule Rose [email or web address] RAY INSPECTOR 03/28/2024 10:00 AM Signed Time Frame: First available Provider: Kiko Landrum Soni Referring: Ileana Cortes MD Images to be requested from [facility] Dx: Right CPA mass Patient: Angela Ruth Address: Angela Ruth [id number] [place] [address] Per Triage: HISTORY OF PRESENT ILLNESS Angela [...] unremarkable. The extracranial soft tissues are unremarkable. Rose Velasquez APRN.X RAY INSPECTOR March 28, 2024 Etelvina Trujillo 03/28/2024 10:12 AM Signed Called patient to schedule an appointment. No ans/left message to call the office back. Appointment scheduled: 04/04/2024 10:30 AM (Arrive by 10:15 AM) Mandi Hoover MD [facility] RAMAN Alonso Janette 04/06/2024 10:40 AM Addendum Imaging requested from [facility] AND [facility]. DOS requested: MRI 03/02/2024 CT Scan 02/11 2024 AND 03/09/2023, 02/11/2024. All images viewable in [employer] Allergies As of Date: 03/24/2024 Noted Allergy [...] Records [3576] Cmt: External referral to [facility] [place] triage [Other] Nurse Triage Call [185] Appointment [186] Primary Visit Diagnosis:Brain mass [G93.89] [G93.89] Prescriptions as of 04/06/2024 - hydrALAZINE (APRESOLINE) 100 mg tablet take 1 tablet by mouth twice a day then MAY TAKE ADDITIONAL (50 M... (REFER (more content not included)... Normal [facility] MR BRAIN W AND WO CONTRAST [...] IS VERY IMPORTANT TO YOUR HEALTH. THE [employer] GUIDELINES RECOMMEND THAT WOMEN 40 [...] Normal 0.0-0.2 [facility] Comment on above: Performed By: #### 1 3965-9, CBCA, FEPR, THYR, 2276-4, 2-9, 4-8, IMEL, SPE #### [facility] ([id number]) [address] [place] [address], [address] [place] [address] #### MTHFRS #### [facility] ([id number]) [address] [facility], [place] [address] ABSOLUTE NEUTROPHIL 3.0 X10E9/L Normal 1.5-6.6 [facility] Comment on above: Performed By: #### 1 3965-9, CBCA, FEPR, THYR, 2276-4, 2-9, 8, IMEL, SPE #### [facility] ([id number]) [address] [place] [address] #### MTHFRS #### [facility] ([id number]) [address] [place] [address] 25400 Basophils/100 WBC (Bld) 0.9 % Normal [facility] Comment on above: Performed By: #### 1 3965-9, CBCA, FEPR, THYR, 2276-4, 2-9, 2284-8, IMEL, SPE #### [facility] ([id number]) [address], [address] [place] [address] #### MTHFRS #### [facility] ([id number]) [address] [place] [address] 12233 Eosinophils (Bld) [#/Vol] 0.1 10*3/uL Normal 0.0-0.4 [facility] Comment on above: Performed By: #### 1 3965-9, CBCA, FEPR, THYR, 2276-4, 2-9, 2284-8, IMEL, SPE #### [facility] ([id number]) [address], [address] [place] [address] #### MTHFRS #### [facility] ([id number]) [address] [place] [address] 91432 Eosinophils/100 WBC (Bld) 1.8 % Normal [facility] Comment on above: Performed By: #### 1 3965-9, CBCA, FEPR, THYR, 2276-4, 2-9, 2284-8, IMEL, SPE #### [facility] ([id number]) [address], [address] [place] [address] #### MTHFRS #### [facility] ([id number]) [address] [place] [address] 98373 Erythrocyte distribution width (RBC) [Ratio] 15.1 % High 11.5-15.0 [facility] Comment on above: Performed By: #### 1 3965-9, CBCA, FEPR, THYR, 6-4, 2132-07, 8, IMEL, SPE #### [facility] ([id number]) [address], [address] [place] [address] #### MTHFRS #### [facility] ([id number]) [address] [place] [address] 66268 Hematocrit (Bld) [Volume fraction] 39.6 % Normal 35-47 [facility] Comment on above: Performed By: #### 1 3965-9, CBCA, FEPR, THYR, 2276-02, 2132-07, 2284-06, IMEL, SPE #### [facility] ([id number]) [address], [address] [place] [address] #### MTHFRS #### [facility] ([id number]) [address] [place] [address]505 Hemoglobin (Bld) [Mass/Vol] 13.5 g/dL Normal 11.7-15.5 [facility] Comment on above: Performed By: #### 1 3965-9, CBCA, FEPR, THYR, 2276-02, 2132-07, 2284-06, IMEL, SPE #### [facility] ([id number]) [address], [address] [place] [address] #### MTHFRS #### [facility] ([id number]) [address] [place] [address] 13219 Lymphocytes (Bld) [#/Vol] 1.5 10*3/uL Normal 1.0-3.5 [facility] Comment on above: Performed By: #### 1 3965-9, CBCA, FEPR, THYR, 6-4, 2132-07, 2284-8, IMEL, SPE #### [facility] ([id number]) [address], [address] [place] [address] #### MTHFRS #### [facility] ([id number]) [address] [place] [address] 29431 Lymphocytes/100 WBC (Bld) 28.5 % Normal [facility] Comment on above: Performed By: #### 1 3965-9, CBCA, FEPR, THYR, 6-4, 2131-9, 2283-8, IMEL, SPE #### [facility] ([id number]) [address], [address] [place] [address] #### MTHFRS #### [facility] ([id number]) [address] [place] [address] 22444 MCH (RBC) [Entitic mass] 29.0 pg Normal 27-34 [facility] Comment on above: Performed By: #### 1 3965-9, CBCA, FEPR, THYR, 6-4, 2131-9, 2283-8, IMEL, SPE #### [facility] ([id number]) [address], [address] [place] [address] #### MTHFRS #### [facility] ([id number]) [address] [place] [address] 58533 MCHC (RBC) [Mass/Vol] 34.0 g/dL Normal 32-36 [facility] Comment on above: Performed By: #### 1 3965-9, CBCA, FEPR, THYR, 6-4, 2131-9, 2283-8, IMEL, SPE #### [facility] ([id number]) [address], [address] [place] [address] #### MTHFRS #### [facility] ([id number]) [address] [place] [address] 46844 MCV (RBC) [Entitic vol] 85 fL Normal 80-100 [facility] Comment on above: Performed By: #### 1 3965-9, CBCA, FEPR, THYR, 6-4, 9, 2283-8, IMEL, SPE #### [facility] ([id number]) [address], [address] [place] [address] #### MTHFRS #### [facility] ([id number]) [address] [place] [address] 40960 Monocytes (Bld) [#/Vol] 0.5 10*3/uL Normal 0-0.9 [facility] Comment on above: Performed By: #### 1 3965-9, CBCA, FEPR, THYR, 6-4, 2132-07, 2284-06, IMEL, SPE #### [facility] ([id number]) [address], [address] [place] [address] #### MTHFRS #### [facility] ([id number]) [address] [place] [address] 58435 Monocytes/100 WBC (Bld) 10.3 % Normal [facility] Comment on above: Performed By: #### 1 3965-9, CBCA, FEPR, THYR, 6-, 2132-07, 2284-06, IMEL, SPE #### [facility] ([id number]) [address], [address] [place] [address] #### MTHFRS #### [facility] ([id number]) [address] [place] [address] 73775 Neutrophils/100 WBC (Bld) 58.5 % Normal [facility] Comment on above: Performed By: #### 1 3965-9, CBCA, FEPR, THYR, 6-4, 2132-07, 2284-06, IMEL, SPE #### [facility] ([id number]) [address] [facility], [address] [place] [address] #### MTHFRS #### [facility] ([id number]) [address] [place] [address] 24604 Platelet mean volume (Bld) [Entitic vol] 9.2 fL Normal 7-12 [facility] Comment on above: Performed By: #### 1 3965-9, CBCA, FEPR, THYR, 2276-4, 2-9, 2284-8, IMEL, SPE #### [facility] ([id number]) [address] [facility], [address] [place] [address] #### MTHFRS #### [facility] ([id number]) [address] [place] [address] 11631 Platelets (Bld) [#/Vol] 176 10*3/uL Normal 150-450 [facility] Comment on above: Performed By: #### 1 3965-9, CBCA, FEPR, THYR, 2276-4, 2-9, 2284-8, IMEL, SPE #### [facility] ([id number]) [address] [facility], [address] [place] [address] #### MTHFRS #### [facility] ([id number]) [address] [place] [address] 73479 RBC COUNT 4.65 X10E12/L Normal 3.80-5.20 [facility] Comment on above: Performed By: #### 1 3965-9, CBCA, FEPR, THYR, 2276-4, 2-9, 2284-8, IMEL, SPE #### [facility] ([id number]) [address] [facility], [address] [place] [address] #### MTHFRS #### [facility] ([id number]) [address] [place] [address] 98662 WBC (Bld) [#/Vol] 5.2 10*3/uL Normal 4.0-11.0 [facility] Comment on above: Performed By: #### 1 3965-9, CBCA, FEPR, THYR, 2276-4, 2131-9, 2284-8, IMEL, SPE #### [facility] ([id number]) [address], [address] [place] [address] #### MTHFRS #### [facility] ([id number]) [address] [place] [address] 91587 COMPREHENSIVE METABOLIC PANE Gadiel 02-11-2024 Albumin [Mass/Vol] 4.1 g/dL Normal 3.2-5.3 [facility] Comment on above: Performed By: #### 1 3965-9, CBCA, FEPR, THYR, 6-4, 9, 4-8, IMEL, SPE #### [facility] ([id number]) [address], [address] [place] [address] #### MTHFRS #### [facility] ([id number]) [address] [place] [address] 72761 ALP [Catalytic activity/Vol] 42 U/L Normal 39-130 [facility] Comment on above: Performed By: #### 1 3965-9, CBCA, FEPR, THYR, 6-4, 2131-9, 4-8, IMEL, SPE #### [facility] ([id number]) [address], [address] [place] [address] #### MTHFRS #### [facility] ([id number]) [address] [place] [address] 34293 ALT [Catalytic activity/Vol] 18 U/L Normal 0-31 [facility] Comment on above: Performed By: #### 1 3965-9, CBCA, FEPR, THYR, 6-4, 2131-9, 4-8, IMEL, SPE #### [facility] ([id number]) [address], [address] [place] [address] #### MTHFRS #### [facility] ([id number]) [address] [place] [address] 49480 Anion gap [Moles/Vol] 7 mmol/L Normal 5-15 [facility] Comment on above: Performed By: #### 1 3965-9, CBCA, FEPR, THYR, 6-4, 2131-9, 4-8, IMEL, SPE #### [facility] ([id number]) [address], [address] [place] [address] #### MTHFRS #### [facility] ([id number]) [address] [place] [address] 71376 AST [Catalytic activity/Vol] 27 U/L Normal 0-41 [facility] Comment on above: Performed By: #### 1 3965-9, CBCA, FEPR, THYR, 6-4, 2131-9, 2283-8, IMEL, SPE #### [facility] ([id number]) [address], [address] [place] [address] #### MTHFRS #### [facility] ([id number]) [address] [place] [address] 66229 Bilirubin [Mass/Vol] 0.5 mg/dL Normal 0.3-1.2 [facility] Comment on above: Performed By: #### 1 3965-9, CBCA, FEPR, THYR, 6-4, 2132-07, 2283-8, IMEL, SPE #### [facility] ([id number]) [address], [address] [place] [address] #### MTHFRS #### [facility] ([id number]) [address] [place] [address] 16686 Calcium [Mass/Vol] 9.4 mg/dL Normal 8.5-10.5 [facility] Comment on above: Performed By: #### 1 3965-9, CBCA, FEPR, THYR, 6-4, 2131-9, 4-8, IMEL, SPE #### [facility] ([id number]) [address] [facility], [address] [place] [address] #### MTHFRS #### [facility] ([id number]) [address] [place] [address] 74190 Chloride [Moles/Vol] 104 mmol/L Normal 98-109 [facility] Comment on above: Performed By: #### 1 3965-9, CBCA, FEPR, THYR, 6-4, 2131-9, 4-8, IMEL, SPE #### [facility] ([id number]) [address] [facility], [address] [place] [address] #### MTHFRS #### [facility] ([id number]) [address] [place] [address] 00220 CO2 [Moles/Vol] 25 mmol/L Normal 22-32 [facility] Comment on above: Performed By: #### 1 3965-9, CBCA, FEPR, THYR, 6-4, 2131-9, 2283-8, IMEL, SPE #### [facility] ([id number]) [address] [place] [address] #### MTHFRS #### [facility] ([id number]) [address] [place] [address] 10277 Creatinine [Mass/Vol] 1.01 mg/dL High 0.40-1.00 [facility] Comment on above: Result Comment: METH OD TRACEABLE TO IDMS STANDARD Performed By: #### 1 3965-9, CBCA, FEPR, THYR, 2276-4, 2131-9, 4-8, IMEL, SPE #### [facility] ([id number]) [address] [place] [address] #### MTHFRS #### [facility] ([id number]) [address] [place] [address] 67732 GFR/1.73 sq M.predicted among non-blacks MDRD (S/P/Bld) [Vol rate/Area] 57 mL/min/{1.73_m2} Low >59 [facility] Comment on above: Result Comment: Reported eGFR is based on the CKD-EPI 2020 equation that does not use a race coefficient. Performed By: #### 1 3965-9, CBCA, FEPR, THYR, 2276-4, 9, 48, IMEL, SPE #### [facility] ([id number]) [address] [place] [address] #### MTHFRS #### [facility] ([id number]) [address] [place] [address] 99281 Glucose [Mass/Vol] 114 mg/dL High 65-99 [facility] Comment on above: Performed By: #### 1 3965-9, CBCA, FEPR, THYR, 6-4, 2132-07, 2284-06, IMEL, SPE #### [facility] ([id number]) [address] [place] [address] #### MTHFRS #### [facility] ([id number]) [address] [place] [address] 56734 Potassium [Moles/Vol] 4.2 mmol/L Normal 3.5-5.0 [facility] Comment on above: Performed By: #### 1 3965-9, CBCA, FEPR, THYR, 2276-4, 9, 8, IMEL, SPE #### [facility] ([id number]) [address], [address] [place] [address] #### MTHFRS #### [facility] ([id number]) [address] [place] [address] 74977 Protein [Mass/Vol] 7.2 g/dL Normal 6.0-8.0 [facility] Comment on above: Performed By: #### 1 3965-9, CBCA, FEPR, THYR, 2276-4, 2131-9, 2284-8, IMEL, SPE #### [facility] ([id number]) [address], [address] [place] [address] #### MTHFRS #### [facility] ([id number]) [address] [place] [address] 95782 Sodium [Moles/Vol] 136 mmol/L Normal 134-146 [facility] Comment on above: Performed By: #### 1 3965-9, CBCA, FEPR, THYR, 2276-4, 2-9, 2284-8, IMEL, SPE #### [facility] ([id number]) [address], [address] [place] [address] #### MTHFRS #### [facility] ([id number]) [address] [place] [address] 61210 Urea nitrogen [Mass/Vol] 22 mg/dL Normal 5-27 [facility] Comment on above: Performed By: #### 1 3965-9, CBCA, FEPR, THYR, 2276-4, 2131-9, 2284-8, IMEL, SPE #### [facility] ([id number]) [address], [address] [place] [address] #### MTHFRS #### [facility] ([id number]) [address] [place] [address] ABDOMEN AND PELVIS W CONT on [...] Mooney MD on 02/11/2024 2:04 PM Normal [facility] CT BRAIN WO CONTon CT BRAIN [...] Dharmesh Mittal on 02/11/2024 1:52 PM Normal [facility] CT CERVICAL SPINE WO CONTon 02-11-2024 [...] Davis DO on 02/11/2024 1:52 PM Normal [facility] CT CHEST W CONTon 02-11-2024 CT [...] Ann MD on 02/11/2024 2:19 PM Normal [facility] LIPASEon 02-11-2024 Lipase [Catalytic activity/Vol] 38 U/L Normal 17-40 [facility] Comment on above: Performed By: #### 1 3965-9, CBCA, FEPR, THYR, 2276-4, 2132-9, 2284-8, IMEL, SPE #### [facility] ([id number]) [address] [place] [address], [address] [place] [address] #### MTHFRS #### [facility] ([id number]) [address] [place] [address], [place] [address] CBC AND AUTO DIFFon 01-11-20 24 ABSOLUTE BASOPHIL 0.1 X10E9/L Normal 0.0-0.2 [facility] Comment on above: Performed By: #### 1 3965-9, CBCA, FEPR, THYR, 6-4, 2132-07, 8, IMEL, SPE #### [facility] ([id number]) [address], [address] [place] [address] #### MTHFRS #### [facility] ([id number]) [address] [place] [address] 10464 ABSOLUTE NEUTROPHIL 2.4 X10E9/L Normal 1.5-6.6 [facility] Comment on above: Performed By: #### 1 3965-9, CBCA, FEPR, THYR, 2275-, 2132-07, 2284-06, IMEL, SPE #### [facility] ([id number]) [address], [address] [place] [address] #### MTHFRS #### [facility] ([id number]) [address] [place] [address] 80246 Basophils/100 WBC (Bld) 1.4 % Normal [facility] Comment on above: Performed By: #### 1 3965-9, CBCA, FEPR, THYR, 2275-, 2132-07, 2284-06, IMEL, SPE #### [facility] ([id number]) [address], [address] [place] [address] #### MTHFRS #### [facility] ([id number]) [address] [place] [address] 79547 Eosinophils (Bld) [#/Vol] 0.1 10*3/uL Normal 0.0-0.4 [facility] Comment on above: Performed By: #### 1 3965-9, CBCA, FEPR, THYR, 2275-, 2132-07, 2284-06, IMEL, SPE #### [facility] ([id number]) [address], [address] [place] [address] #### MTHFRS #### [facility] ([id number]) [address] [place] [address] 69117 Eosinophils/100 WBC (Bld) 2.8 % Normal [facility] Comment on above: Performed By: #### 1 3965-9, CBCA, FEPR, THYR, 2276-4, 2131-9, 2284-8, IMEL, SPE #### [facility] ([id number]) [address] [facility], [address] [place] [address] #### MTHFRS #### [facility] ([id number]) [address] [place] [address] 45860 Erythrocyte distribution width (RBC) [Ratio] 15.5 % High 11.5-15.0 [facility] Comment on above: Performed By: #### 1 3965-9, CBCA, FEPR, THYR, 2276-4, 2131-9, 4-8, IMEL, SPE #### [facility] ([id number]) [address] [facility], [address] [place] [address] #### MTHFRS #### [facility] ([id number]) [address] [place] [address] 36541 Hematocrit (Bld) [Volume fraction] 38.4 % Normal 35-47 [facility] Comment on above: Performed By: #### 1 3965-9, CBCA, FEPR, THYR, 2276-4, 2131-9, 4-8, IMEL, SPE #### [facility] ([id number]) [address] [address] [place] [address] #### MTHFRS #### [facility] ([id number]) [address] [place] [address] 00120 Hemoglobin (Bld) [Mass/Vol] 12.5 g/dL Normal 11.7-15.5 [facility] Comment on above: Performed By: #### 1 3965-9, CBCA, FEPR, THYR, 6-4, 9, 8, IMEL, SPE #### [facility] ([id number]) [address], [address] [place] [address] #### MTHFRS #### [facility] ([id number]) [address] [place] [address] 35679 Lymphocytes (Bld) [#/Vol] 1.7 10*3/uL Normal 1.0-3.5 [facility] Comment on above: Performed By: #### 1 3965-9, CBCA, FEPR, THYR, 2275-, 2132-07, 2284-06, IMEL, SPE #### [facility] ([id number]) [address] [facility], [address] [place] [address] #### MTHFRS #### [facility] ([id number]) [address] [place] [address] 11514 Lymphocytes/100 WBC (Bld) 35.8 % Normal [facility] Comment on above: Performed By: #### 1 3965-9, CBCA, FEPR, THYR, 2275-, 2132-07, 2284-06, IMEL, SPE #### [facility] ([id number]) [address], [address] [place] [address] #### MTHFRS #### [facility] ([id number]) [address] [place] [address] 45519 MCH (RBC) [Entitic mass] 28.5 pg Normal 27-34 [facility] Comment on above: Performed By: #### 1 3965-9, CBCA, FEPR, THYR, 6-4, 2132-07, 2284-06, IMEL, SPE #### [facility] ([id number]) [address], [address] [place] [address] #### MTHFRS #### [facility] ([id number]) [address] [place] [address] 86678 MCHC (RBC) [Mass/Vol] 32.7 g/dL Normal 32-36 [facility] Comment on above: Performed By: #### 1 3965-9, CBCA, FEPR, THYR, 6-4, 2132-07, 2284-06, IMEL, SPE #### [facility] ([id number]) [address], [address] [place] [address] #### MTHFRS #### [facility] ([id number]) [address] [place] [address] 56374 MCV (RBC) [Entitic vol] 87 fL Normal 80-100 [facility] Comment on above: Performed By: #### 1 3965-9, CBCA, FEPR, THYR, 2275-, 2132-07, 2284-06, IMEL, SPE #### [facility] ([id number]) [address], [address] [place] [address] #### MTHFRS #### [facility] ([id number]) [address] [place] [address] 30433 Monocytes (Bld) [#/Vol] 0.5 10*3/uL Normal 0-0.9 [facility] Comment on above: Performed By: #### 1 3965-9, CBCA, FEPR, THYR, 6-, 2132-07, 2284-06, IMEL, SPE #### [facility] ([id number]) [address], [address] [place] [address] #### MTHFRS #### [facility] ([id number]) [address] [place] [address] 31319 Monocytes/100 WBC (Bld) 10.0 % Normal [facility] Comment on above: Performed By: #### 1 3965-9, CBCA, FEPR, THYR, 6-4, 2131-9, 2283-8, IMEL, SPE #### [facility] ([id number]) [address], [address] [address] #### MTHFRS #### [facility] ([id number]) [address] [place] [address] 09919 Neutrophils/100 WBC (Bld) 50.0 % Normal [facility] Comment on above: Performed By: #### 1 3965-9, CBCA, FEPR, THYR, 2275-4, 2132-07, 8, IMEL, SPE #### [facility] ([id number]) [address] [facility], [address] [place] [address] #### MTHFRS #### [facility] ([id number]) [address] [place] [address] 16837 Platelet mean volume (Bld) [Entitic vol] 9.6 fL Normal 7-12 [facility] Comment on above: Performed By: #### 1 3965-9, CBCA, FEPR, THYR, 2275-, 2132-07, 8, IMEL, SPE #### [facility] ([id number]) [address], [address] [place] [address] #### MTHFRS #### [facility] ([id number]) [address] [place] [address] 20940 Platelets (Bld) [#/Vol] 194 10*3/uL Normal 150-450 [facility] Comment on above: Performed By: #### 1 3965-9, CBCA, FEPR, THYR, 6-4, 2132-9, 2284-8, IMEL, SPE #### [facility] ([id number]) [address] [facility], [address] [place] [address] #### MTHFRS #### [facility] ([id number]) [address] [place] [address] 54464 RBC COUNT 4.41 X10E12/L Normal 3.80-5.20 [facility] Comment on above: Performed By: #### 1 3965-9, CBCA, FEPR, THYR, 2276-4, 2-9, 2284-8, IMEL, SPE #### [facility] ([id number]) [address] [place] [address], [facility] [address] [place] [address] #### MTHFRS #### [facility] ([id number]) [address] [place] [address] 39044 WBC (Bld) [#/Vol] 4.9 10*3/uL Normal 4.0-11.0 [facility] Comment on above: Performed By: #### 1 3965-9, CBCA, FEPR, THYR, 2276-4, 2131-9, 4-8, IMEL, SPE #### [facility] ([id number]) [address] [place] [address], [address] [address] #### MTHFRS #### [facility] ([id number]) [address] [place] [address] 57634 Clinical Pathologyon 024 Clinical Pathology Normal [facility] Comment on above: Result Comment: [facility] [address] [place] [address] Clinical Pathology Report Patient Name:ANGELA RUTH:1945 (Age: 78)Gender:FTaken:4Reported:4Physician(s):MARCE Rayo ([phone])Copy To: Rec. #:[id number]: #[id number] Final Pathologic Diagnosis No monoclonal protein identified. Report Electronically Signed Out 01/12/2024duncan Alamo MD Interpretation performed at [facility], [address] [place] [address], License number: [id number]. Clinical History G25.0, R26.89, G62.9, R79.0. SERUM IEP SAMPLE NUMBER: [id number] IMMUNOGLOBULIN LEVELS (mg/dL): IgG : 652 IgA : 225 IgM : 64 Free [place]: 3.45 Free Lambda: 2.10 Free [place]/Lambda ratio: 1.64 Specimen(s) Received Serum IEP Fee Codes(s): 1; 70844-92 FERRITINon 01-11-2024 Ferritin [Mass/Vol] 47 ng/mL Normal 11-[address] [facility] Comment on above: Performed By: #### 1 3965-9, CBCA, FEPR, THYR, 2276-4, 2132-9, 2284-8, IMEL, SPE #### [facility] ([id number]) [address] [place] [address] #### MTHFRS #### [facility] ([id number]) [address] [place] [address] 41842 Folate [Mass/Vol]on 01-11-20 24 FOLIC ACID >25.0 Normal >5.8 [facility] Comment on above: Result Comment: NEW REFERENCE RANGE Performed By: #### 1 3965-9, CBCA, FEPR, THYR, 2276-4, 2132-9, 2284-8, IMEL, SPE #### [facility] ([id number]) [address] [place] [address], [place] [id number] #### MTHFRS #### [facility] ([id number]) [address] [place] [address] 79800 HGB A1C (GLYCO-HGB)on 2023 Glucose [Mass/Vol] 108 mg/dL Normal [facility] Comment on above: Performed By: #### 1 3965-9, CBCA, FEPR, THYR, 6-4, 2132-07, 8, IMEL, SPE #### [facility] ([id number]) [address] [place] [address] #### MTHFRS #### [facility] ([id number]) [address] [place] [address] 36653 HbA1c (Bld) [Mass fraction] 5.4 % Normal 4.4-5.6 [facility] Comment on above: Result Comment: [...] THYR, 2276-02, 2132-07, 2284-06, IMEL, SPE #### [facility] ([id number]) [address] [place] [address] #### MTHFRS #### [facility] ([id number]) [address] [place] [address] 84982 Homocysteine [Moles/Vol]on 0 01-11-2024 HOMOCYSTEINE 14.23 mcmol/L Normal 3.36-20.44 [facility] Comment on above: Performed By: #### 1 3965-9, CBCA, FEPR, THYR, 6-4, 2132-07, 2284-06, IMEL, SPE #### [facility] ([id number]) [address] [place] [address], [address] [place] [address] #### MTHFRS #### [facility] ([id number]) [address] [place] [address] IMMUNOELECTROPHORESIS FOR TH ERAPY MONITORINGon 01-11-2024 FREE IRASEMA/LAMBD RATIO 1.64 Normal 0.26-1.65 [facility] Comment on above: Performed By: #### 1 3965-9, CBCA, FEPR, THYR, 2276-4, 2-9, 2284-8, IMEL, SPE #### [facility] ([id number]) [address] [facility], [address] [place] [address] #### MTHFRS #### [facility] ([id number]) [address] [place] [address] 80119 FREE KAPPA LT CHAINS 3.45 mg/dL High 0.33-1.94 [facility] Comment on above: Performed By: #### 1 3965-9, CBCA, FEPR, THYR, 6-4, 2131-9, 4-8, IMEL, SPE #### [facility] ([id number]) [address] [facility], [address] [place] [address] #### MTHFRS #### [facility] ([id number]) [address] [place] [address] 41006 FREE LAMBDA LT CHAINS 2.10 mg/dL Normal 0.57-2.63 [facility] Comment on above: Performed By: #### 1 3965-9, CBCA, FEPR, THYR, 6-4, 2131-9, 4-8, IMEL, SPE #### [facility] ([id number]) [address] [facility], [address] [place] [address] #### MTHFRS #### [facility] ([id number]) [address] [place] [address] 96546 IgA [Mass/Vol] 225 mg/dL Normal 68-378 [facility] Comment on above: Performed By: #### 1 3965-9, CBCA, FEPR, THYR, 2276-4, 2132-9, 2284-8, IMEL, SPE #### [facility] ([id number]) [address] [place] [address] #### MTHFRS #### [facility] ([id number]) [address] [place] [address] 44650 IgG [Mass/Vol] 652 mg/dL Normal 635-1741 [facility] Comment on above: Performed By: #### 1 3965-9, CBCA, FEPR, THYR, 2276-4, 2-9, 2284-8, IMEL, SPE #### [facility] ([id number]) [address] [facility], [address] [place] [address] #### MTHFRS #### [facility] ([id number]) [address] [place] [address] 14081 IgM [Mass/Vol] 64 mg/dL Normal 45-281 [facility] Comment on above: Performed By: #### 1 3965-9, CBCA, FEPR, THYR, 2276-4, 2-9, 2284-8, IMEL, SPE #### [facility] ([id number]) [address] [place] [address] #### MTHFRS #### [facility] ([id number]) [address] [place] [address] 27809 IMMUNE PROFILE INTERP SEE SEPARATE REPORT Normal [facility] Comment on above: Performed By: #### 1 3965-9, CBCA, FEPR, THYR, 2276-4, 2132-9, 2284-8, IMEL, SPE #### [facility] ([id number]) [address] [facility], [address] [place] [address] #### MTHFRS #### [facility] ([id number]) [address] [place] [address] 17267 IRON PROFILEon 01-11-2024 Iron [Mass/Vol] 100 ug/dL Normal 50-170 [facility] Comment on above: Performed By: #### 1 3965-9, CBCA, FEPR, THYR, 2276-4, 2-9, 2284-8, IMEL, SPE #### [facility] ([id number]) [address] [place] [address], [facility] [address] [place] [address] #### MTHFRS #### [facility] ([id number]) [address] [place] [address] 22039 IRON BINDING 438 ug/dL High 250-425 [facility] Comment on above: Performed By: #### 1 3965-9, CBCA, FEPR, THYR, 6-4, 2131-9, 4-8, IMEL, SPE #### [facility] ([id number]) [address] [place] [address], [address] [address] #### MTHFRS #### [facility] ([id number]) [address] [place] [address] 17444 IRON SATURATION 23 % SATURATION Normal 15-50 [facility] Comment on above: Performed By: #### 1 3965-9, CBCA, FEPR, THYR, 6-4, 2131-9, 4-8, IMEL, SPE #### [facility] ([id number]) [address] [place] [address] [address] [place] [address] #### MTHFRS #### [facility] ([id number]) [address] [place] [address] MTHFRon 01-11-2024 MTHFR INTERPRETATION SEE NOTE Normal [facility] Comment on above: Result Comment: NOTE Indication for testing: Determine genetic contribution to hyperhomocysteinemia. Negative: Neither of the common MTHFR gene variants tested, c.665C>T (previously designated C677T) and c.1286A>C (previously designated F2608D), were detected. Other causes of elevated homocysteine [...] has an effect on cardiovascular disease. The [employer] Practice Guidelines indicate [...] a contributing factor to hyperhomocysteinemia. Variants Tested: c.665C>T(p.Pdd355Whg) and c.1286A>C(p.Qlp571Iih). (legacy names C677T and M0327C, respectively). Clinical Sensitivity: Undefined; hyperhomocysteinemia is caused [...] developed and its performance characteristics determined by [facility]. It has not been cleared or approved by the [place] Food and Drug Administration. This test was performed in a CLIA certified laboratory and is intended for clinical purposes. Counseling and informed consent are recommended for genetic testing. Consent forms are available online. Performed By: [facility] [address] [place] [address] Benefits Processor: Jacob Sparks MD, PhD CLIA Number: [id number] Performed By: #### 1 3965-9, CBCA, FEPR, THYR, 2275-4, 2132-07, 8, IMEL, SPE #### [facility] ([id number]) [address] [place] [address] #### MTHFRS #### [facility] ([id number]) [address] [place] [address], [place] [address] MTHFR MUT G7197DL Negative Normal [facility] Comment on above: Performed By: #### 1 3965-9, CBCA, FEPR, THYR, 2275-, 2132-07, 2284-06, IMEL, SPE #### [facility] ([id number]) [address] [facility], [address] [place] [address] #### MTHFRS #### [facility] ([id number]) [address] [place] [address], [place] [address] MTHFR MUT C665CT Negative Normal [facility] Comment on above: Performed By: #### 1 3965-9, CBCA, FEPR, THYR, 2275-, 2132-07, 2284-06, IMEL, SPE #### [facility] ([id number]) [address] [facility], [address] [place] [address] #### MTHFRS #### [facility] ([id number]) [address] [place] [address], [place] [address] MTHFR PCR SPECIMEN WHOLE BLOOD Normal [facility] Comment on above: Performed By: #### 1 3965-9, CBCA, FEPR, THYR, 2275-4, 2132-07, 2284-06, IMEL, SPE #### [facility] ([id number]) [address], [address] [place] [address] #### MTHFRS #### [facility] ([id number]) [address] [place] [address] Methylmalonate [Moles/Vol]on 01-11-2024 MMA QN 0.14 umol/L Normal <=0.40 [facility] Comment on above: Result Comment: NOTE This test was developed and its performance characteristics determined by [facility] [place] ([facility]). It has not been cleared or approved by the FDA. -[facility] is regulated under CLIA as qualified to perform high-complexity testing. This test is used for clinical purposes. It should not be regarded as investigational or for research. Test Performed By: [facility] [address] [place] [address] Benefits Processor: Berry Larsen III, M.D. CLIA #[id number] Performed By: #### 1 3965-9, CBCA, FEPR, THYR, 2276-4, 9, 2283-8, IMEL, SPE #### [facility] ([id number]) [address] [facility] [facility] [address], [address] [place] [address] #### MTHFRS #### [facility] ([id number]) [address] [place] [id number] SERUM PROTEIN ELECTROPHORESI Son 01-11-2024 Albumin [Mass/Vol] 4.0 g/dL Normal 3.4-5.3 [facility] Comment on above: Performed By: #### 1 3965-9, CBCA, FEPR, THYR, 2276-4, 2-9, 2284-8, IMEL, SPE #### [facility] ([id number]) [address] [facility], [address] [place] [address] #### MTHFRS #### [facility] ([id number]) [address] [place] [address] ALPHA 1 GLOBULIN 0.3 g/dL Normal 0.1-0.4 [facility] Comment on above: Performed By: #### 1 3965-9, CBCA, FEPR, THYR, 2276-4, 2131-9, 4-8, IMEL, SPE #### [facility] ([id number]) [address], [address] [place] [address] #### MTHFRS #### [facility] ([id number]) [address] [place] [address] ALPHA 2 GLOBULIN 0.8 g/dL Normal 0.4-1.1 [facility] Comment on above: Performed By: #### 1 3965-9, CBCA, FEPR, THYR, 6-4, 2131-9, 2283-8, IMEL, SPE #### [facility] ([id number]) [address], [address] [place] [address] #### MTHFRS #### [facility] ([id number]) [address] [place] [address] BETA GLOBULIN 0.8 g/dL Normal 0.5-1.2 [facility] Comment on above: Performed By: #### 1 3965-9, CBCA, FEPR, THYR, 6-4, 2131-9, 2283-8, IMEL, SPE #### [facility] ([id number]) [address], [address] [place] [address] #### MTHFRS #### [facility] ([id number]) [address] [place] [address] GAMMA GLOBULIN 0.7 g/dL Normal 0.5-1.6 [facility] Comment on above: Performed By: #### 1 3965-9, CBCA, FEPR, THYR, 2276-4, 2131-9, 4-8, IMEL, SPE #### [facility] ([id number]) [address], [address] [place] [address] #### MTHFRS #### [facility] ([id number]) [address] [place] [address] PROT. ELECTROPHORESIS INTERP Unremarkable protein distribution, no monoclonal bands. Normal [facility] Comment on above: Performed By: #### 1 3965-9, CBCA, FEPR, THYR, 2276-4, 2132-9, 2284-8, IMEL, SPE #### [facility] ([id number]) [address], [address] [place] [address] #### MTHFRS #### [facility] ([id number]) [address] [place] [address] Protein [Mass/Vol] 6.5 g/dL Normal 6.0-8.0 [facility] [place] Comment on above: Performed By: #### 1 3965-9, CBCA, FEPR, THYR, 2276-4, 2132-9, 2284-8, IMEL, SPE #### [facility] ([id number]) [address], [address] [place] [address] #### MTHFRS #### [facility] ([id number]) [address] [place] [address] THYROID PROFILEon 01-11-2024 Free T4 [Mass/Vol] 1.09 ng/dL Normal 0.61-1.60 [facility] Comment on above: Performed By: #### 1 3965-9, CBCA, FEPR, THYR, 2276-4, 2132-9, 2284-8, IMEL, SPE #### [facility] ([id number]) [address], [address] [place] [address] #### MTHFRS #### [facility] ([id number]) [address] [place] [address]46[address] TSH 0.60 uIU/mL Normal 0.49-4.67 [facility] Comment on above: Performed By: #### 1 3965-9, CBCA, FEPR, THYR, 2276-4, 2132-9, 2284-8, IMEL, SPE #### [facility] ([id number]) [address], [address] [place] [address] #### MTHFRS #### [facility] ([id number]) [address] [place] [address] 34179 VITAMIN B12on 01-11-2024 Cobalamin (Vitamin B12) [Mass/Vol] 407 pg/mL Normal 180-914 [facility] Comment on above: Performed By: #### 1 3965-9, CBCA, FEPR, THYR, 2276-4, 2132-9, 2284-8, IMEL, SPE #### [facility] ([id number]) [address], [address] [place] [address] #### MTHFRS #### [facility] ([id number]) [address] [place] [address]193 DEXA SCAN CEN[place]AL SKELETALon 12-06-2023 DEXA SCAN [place] SKELETAL DEXA SCAN [place] SKELETAL CLINICAL INFORMATION: Age-related osteoporosis without current [...] Ann MD on 12/06/2023 2:10 AM Normal [facility] CT Abdomen/Pelvis w + w/o Co [...] by Felix Dominguez on 12/07/2022 1159 Normal [facility] [employer] XR HAND LEFT (MIN 3 VIEWS)on 11-07-2022 [...] Matt Cowart MD 11/07/22 Final result Normal [facility] XR HAND LEFT (MIN 3 VIEWS) 3 [...] Matt Cowart MD 11/07/22 Final result Normal [facility] XR Chest 2 Views*on 09-10-20 XR Chest [...] by Bartolome Monson on 09/10/2022 1507 Normal [facility] Complete Blood Count with Au to Diffon 12-11-2021 Basophils (Bld) [#/Vol] 0.07 10*3/uL Normal 0.00-0.20 [facility] Comment on above: Performed By: #### C MP, CBCAD #### [facility] [address], [place] [id number] Basophils/100 WBC (Bld) 0.9 % Normal [facility] Comment on above: Performed By: #### C MP, CBCAD #### [facility] [address], [place] [id number] Eosinophils (Bld) [#/Vol] 0.17 10*3/uL Normal 0.02-0.50 [facility] Comment on above: Performed By: #### C MP, CBCAD #### [facility] [address], [place] [id number] Eosinophils/100 WBC (Bld) 2.3 % Normal [facility] Comment on above: Performed By: #### C MP, CBCAD #### [facility] [address], [place] [id number] Erythrocyte distribution width (RBC) [Ratio] 16.4 % High 11.0-15.0 [facility] Comment on above: Performed By: #### C MP, CBCAD #### [facility] [address], [place] [id number] Hematocrit (Bld) [Volume fraction] 42.9 % Normal 35.0-47.0 [facility] Comment on above: Performed By: #### C MP, CBCAD #### [facility] [address], [place] [id number] Hemoglobin (Bld) [Mass/Vol] 13.5 g/dL Normal 11.6-15.5 [facility] Comment on above: Performed By: #### C MP, CBCAD #### [facility] [address], [place] [id number] Lymphocytes (Bld) [#/Vol] 2.7 10*3/uL Normal 0.9-3.9 [facility] Comment on above: Performed By: #### C MP, CBCAD #### [facility] [address], [place] [id number] Lymphocytes/100 WBC (Bld) 36.1 % Normal [facility] Comment on above: Performed By: #### C MP, CBCAD #### [facility] [address], [place] [id number] MCH (RBC) [Entitic mass] 27.7 pg Normal 27.0-33.0 [facility] Comment on above: Performed By: #### C MP, CBCAD #### [facility] [address], [place] [id number] MCHC (RBC) [Mass/Vol] 31.5 g/dL Low 32.0-36.0 [facility] Comment on above: Performed By: #### C MP, CBCAD #### [facility] [address], [place] [id number] MCV (RBC) [Entitic vol] 88 fL Normal 80-100 [facility] Comment on above: Performed By: #### C MP, CBCAD #### [facility] [address], [place] [id number] Monocytes (Bld) [#/Vol] 0.8 10*3/uL Normal 0.2-0.9 [facility] Comment on above: Performed By: #### C MP, CBCAD #### [facility] [address], [place] [id number] Monocytes/100 WBC (Bld) 10.8 % Normal [facility] Comment on above: Performed By: #### C MP, CBCAD #### [facility] [address], [place] [id number] Neutrophils (Bld) [#/Vol] 3.7 10*3/uL Normal 1.5-7.8 [facility] Comment on above: Performed By: #### C MP, CBCAD #### [facility] [address], [place] [id number] Neutrophils/100 WBC (Bld) 49.2 % Normal [facility] Comment on above: Performed By: #### C MP, CBCAD #### [facility] [address], [place] [id number] Platelet mean volume (Bld) [Entitic vol] 11.00 fL Normal 7.50-12.50 [facility] Comment on above: Performed By: #### C MP, CBCAD #### [facility] [address], [place] [id number] Platelets (Bld) [#/Vol] 246 10*3/uL Normal 140-400 [facility] Comment on above: Performed By: #### C MP, CBCAD #### [facility] [address], [place] [id number] RBC (Bld) [#/Vol] 4.88 10*6/uL Normal 3.90-5.20 [place] [employer] Comment on above: Performed By: #### C MP, CBCAD #### [facility] [address], [place] [id number] RDW-SD 53.1 fL High 37.0-50.0 [facility] [employer] Comment on above: Performed By: #### C MP, CBCAD #### [facility] [address], [place] [id number] WBC (Bld) [#/Vol] 7.5 10*3/uL Normal 3.8-11.0 [facility] [employer] Comment on above: Performed By: #### C LG, CBCAD #### [facility] [address], [place] [id number] Comprehensive Metabolic Pane gadiel 12-11-2021 Albumin [Mass/Vol] 4.2 g/dL Normal 3.6-5.1 [facility] [employer] Comment on above: Performed By: #### C LG, CBCAD #### [facility] [address], [place] [id number] Albumin/Globulin [Mass ratio] 1.7 {ratio} Normal 1.0-2.5 [facility] Comment on above: Performed By: #### C LG, CBCAD #### [facility] [address], [place] [id number] ALP [Catalytic activity/Vol] 71 U/L Normal 35-119 [facility] Comment on above: Performed By: #### C LG, CBCAD #### [facility] [address], [place] [id number] ALT [Catalytic activity/Vol] 12 U/L Normal 6-33 [facility] Comment on above: Result Comment: 10/22 Female reference range changed. Performed By: #### C LG, CBCAD #### [facility] [address], [place] [id number] Anion gap [Moles/Vol] 18 mmol/L Normal 12-20 [facility] Comment on above: Result Comment: Effe ctive 11/27/2019 reference range changed. Performed By: #### C LG, CBCAD #### [facility] [address], [place] [id number] AST [Catalytic activity/Vol] 15 U/L Normal 9-34 [facility] Comment on above: Performed By: #### C MP, CBCAD #### [facility] [address], [place] [id number] Bilirubin [Mass/Vol] 0.33 mg/dL Normal 0.30-1.20 [facility] Comment on above: Performed By: #### C MP, CBCAD #### [facility] [address], [place] [id number] BUN/CREA 35 Ratio High 6-22 [facility] Comment on above: Performed By: #### C MP, CBCAD #### [facility] [address], [place] [id number] Calcium [Mass/Vol] 9.4 mg/dL Normal 8.6-10.2 [facility] Comment on above: Performed By: #### C MP, CBCAD #### [facility] [address], [place] [id number] Chloride [Moles/Vol] 106 mmol/L Normal 98-107 [facility] Comment on above: Performed By: #### C MP, CBCAD #### [facility] [address], [place] [id number] CO2 [Moles/Vol] 24 mmol/L Normal 20-31 [facility] Comment on above: Performed By: #### C MP, CBCAD #### [facility] [address], [place] [id number] Creatinine [Mass/Vol] 0.9 mg/dL Normal 0.6-1.4 [facility] Comment on above: Performed By: #### C MP, CBCAD #### [facility] [address], [place] [id number] eGFRAA 70 mL/min/1.73m2 Normal >60 [facility] Comment on above: Performed By: #### C MP, CBCAD #### [facility] [address], [place] [id number] eGFRNAA 58 mL/min/1.73m2 Low >60 [facility] Comment on above: Performed By: #### C MP, CBCAD #### [facility] [address], [place] [id number] Globulin (S) [Mass/Vol] 2.5 g/dL Normal 1.9-3.7 [facility] Comment on above: Performed By: #### C MP, CBCAD #### [facility] [address], [place] [id number] Glucose [Mass/Vol] 84 mg/dL Normal 65-99 [facility] [employer] [place] [employer] Comment on above: Result Comment: For FASTING Glucose --- ADA reference ranges: Normal 65-99 mg/dl Prediabetes 100-125 Diabetes >/= 126 Performed By: #### C MP, CBCAD #### [facility] [address], [place] [id number] Potassium [Moles/Vol] 4.3 mmol/L Normal 3.5-5.5 [facility] [employer] Comment on above: Performed By: #### C MP, CBCAD #### [facility] [address], [place] [id number] Protein [Mass/Vol] 6.7 g/dL Normal 6.1-8.1 [place] [employer] Comment on above: Performed By: #### C MP, CBCAD #### [facility] [address], [place] [id number] Sodium [Moles/Vol] 143 mmol/L Normal 135-146 [facility] Comment on above: Performed By: #### C MP, CBCAD #### [facility] [address], [place] [id number] Urea nitrogen [Mass/Vol] 33 mg/dL High 7-25 [facility] [employer] Comment on above: Performed By: #### C MP, CBCAD #### [facility] [address], [place] [id number] Calciumon 06-20-2019 Calcium [Mass/Vol] 10.0 mg/dL Normal 8.4-10.2 [facility] Comment on above: Performed By: #### 1 030, 1035, 4500, 4510, 4520, 4581 #### [facility] Unless Otherwise Noted [address] [address] / [facility] #4724/CLIA # [id number] Creatinineon 06-20-2019 Creatinine [Mass/Vol] 0.9 mg/dL Normal 0.5-1.0 [facility] [place] Comment on above: Performed By: #### 1 030, 1035, 4500, 4510, 4520, 4581 #### [facility] Unless Otherwise Noted [address] [address] / [facility] #4724/CLIA # [id number] Creatinine [Mass/Vol] 74.8 Kg Normal [facility] Comment on above: Performed By: #### 1 030, 1035, 4500, 4510, 4520, 4581 #### [facility] Unless Otherwise Noted [address] [address] / [facility] #4724/CLIA # [id number] Creatinine [Mass/Vol] 64.8 ml/m1.73 Normal [facility] Comment on above: Performed By: #### 1 030, 1035, 4500, 4510, 4520, 4581 #### [facility] Unless Otherwise Noted [address] [address] / [facility] #4724/CLIA # [id number] Creatinine [Mass/Vol] 65.1 ml/m1.73 Normal [facility] [place] [facility] Comment on above: Performed By: #### 1 030, 1035, 4500, 4510, 4520, 4581 #### [facility] Unless Otherwise Noted [address] [address] / [facility] #4724/CLIA # [id number] Creatinine [Mass/Vol] 78.7 ml/m1.73 Normal [facility] Comment on above: Performed By: #### 1 030, 1035, 4500, 4510, 4520, 4581 #### [facility] [place] Unless Otherwise Noted [address] [address] / [facility] #4724/CLIA # [id number] FT3on 06-20-2019 FT3 2.80 pg/mL Normal 2.45-5.93 [facility] Comment on above: Performed By: #### 1 030, 1035, 4500, 4510, 4520, 4581 #### [facility] Unless Otherwise Noted [address] [address] / [facility] #4724/CLIA # [id number] FT4on 06-20-2019 Free T4 [Mass/Vol] 1.93 ng/dL Normal 0.78-2.44 [facility] Comment on above: Performed By: #### 1 030, 1035, 4500, 4510, 4520, 4581 #### [facility] Unless Otherwise Noted [address] [address] / [facility] #4724/CLIA # [id number] TSHon 06-20-2019 TSH Qn 0.57 uIU/ml Normal 0.47-4.68 [facility] Comment on above: Performed By: #### 1 030, 1035, 4500, 4510, 4520, 4581 #### [facility] Unless Otherwise Noted [address] [address] / [facility] #4724/CLIA # [id number] VITAMIN D 25on 06-20-2019 VITAMIN D 25 51.5 ng/ml Normal 30.0-100.0 [facility] Comment on above: Result Comment: Defi cient <20 Insufficient 20-<30 Sufficient 30-100 Potiential Toxicity >100 Performed By: #### 1 030, 1035, 4500, 4510, 4520, 4581 #### [facility] Unless Otherwise Noted [address] [facility] [address] [place] [address] / [facility] #4724/CLIA # [id number] Basic Metabolic Profon 05-06 (cont.) Normal [facility] Comment on above: Result Comment: Aver age GFR for 70 or more years old: 75 mL/min/1.73sq mChronic Kidney Disease: <60 mL/min/1.73sq mKidney failure: <15 mL/min/1.73sq meGFR calculated using average adult body mass. Additional eGFR calculator available at:http://www.fashionandyou.com/multiple_crcl_2012.htmPerformed at [facility] [address] [place] [address] Performed By: #### C DP, BMP ####[facility] [place] [address] Anion gap 14 mmol/L Normal 9-17 [facility] Comment on above: Performed By: #### C DP, BMP ####[facility] [place] [address] Calcium 9.6 mg/dL Normal 8.6-10.4 [facility] Comment on above: Performed By: #### C DP, BMP ####[facility] [place] [address] Chloride 106 mmol/L Normal 98-107 [facility] Comment on above: Performed By: #### C DP, BMP ####[address] [address] CO2 26 mmol/L Normal 20-31 [facility] Comment on above: Performed By: #### C DP, BMP ####[facility] [facility] [place] [address] Creatinine 0.91 mg/dL High 0.50-0.90 [facility] Comment on above: Performed By: #### C DP, BMP ####[facility] [place] [address].[place] [address] eGFR (non-black) mL/min/{1.73_m2} Normal >60 [facility] Comment on above: Performed By: #### C DP, BMP ####[facility] [place], [place] [address]connie [place] [address] Glucose mass conc 99 mg/dL Normal 70-99 [facility] Comment on above: Performed By: #### C DP, BMP ####[facility] [place] [address].[place] [address] Potassium molar conc 4.2 mmol/L Normal 3.7-5.3 [facility] Comment on above: Performed By: #### C DP, BMP ####[facility] [place] [address] Sodium 146 mmol/L High 135-144 [facility] Comment on above: Performed By: #### C DP, BMP ####[facility] [place] [address].[place] [address] Urea nitrogen 21 mg/dL Normal 8-23 [facility] Comment on above: Performed By: #### C DP, BMP ####[facility] [place], [place] [address]connie [place] [address] BUN/CRE Ratio NOT REPORTED Normal 9-20 [facility] Comment on above: Performed By: #### C DP, BMP ####[facility] [place] [address] Staging: NOT REPORTED Normal [facility] Comment on above: Performed By: #### C DP, BMP ####[address] [address] CBC with Diffon 05-06-2018 Abs. Basophil 0.10 k/uL Normal 0.0-0.2 [facility] Comment on above: Result Comment: Perf ormed at [facility] [address] [place] [address] Performed By: #### C DP, BMP ####[address] [address] Abs.Neutrophil (Seg) 4.00 k/uL Normal 1.3-9.1 [facility] Comment on above: Performed By: #### C DP, BMP ####[facility] [place] [address] Basophils/100 WBC Auto (Bld) 1 % Normal 0-2 [facility] Comment on above: Performed By: #### C DP, BMP ####[facility] [place] [address] Eosinophils 0.20 10*3/uL Normal 0.0-0.4 [facility] Comment on above: Performed By: #### C DP, BMP ####[facility] [place] [address] Eosinophils/100 leukocytes 2 % Normal 0-4 [facility] Comment on above: Performed By: #### C DP, BMP ####[address] [address] Erythrocyte distribution width Auto Ratio (RBC) 13.9 % Normal 11.5-14.9 [facility] Comment on above: Performed By: #### C DP, BMP ####[facility] [place] [address] Erythrocytes (RBC) 4.68 10*6/uL Normal 4.0-5.2 [facility] Comment on above: Performed By: #### C DP, BMP ####[facility] [place] [address].[place] [address] Hematocrit (HCT) 41.8 % Normal 36-46 [facility] Comment on above: Performed By: #### C DP, BMP ####[facility] [place] [address].[place] [address] Hemoglobin mass conc (Bld) 13.7 g/dL Normal 12.0-16.0 [facility] Comment on above: Performed By: #### C DP, BMP ####[address] [place] [address] Lymphocytes 3.20 10*3/uL Normal 1.0-4.8 [facility] Comment on above: Performed By: #### C DP, BMP ####[address] [place] [address] Lymphocytes/100 leukocytes 39 % Normal 24-44 [facility] Comment on above: Performed By: #### C DP, BMP ####[facility] [place] [address].[place] [address] MCH 29.3 pg Normal 26-34 [facility] Comment on above: Performed By: #### C DP, BMP ####[address] [place] [address] MCHC mass conc (RBC) 32.8 g/dL Normal 31-37 [facility] Comment on above: Performed By: #### C DP, BMP ####[address] [place] [address] MCV 89.3 fL Normal 80-100 [facility] Comment on above: Performed By: #### C DP, BMP ####[facility] [place] [address] Monocytes 0.90 10*3/uL Normal 0.1-1.3 [facility] Comment on above: Performed By: #### C DP, BMP ####[facility] [place] [address] Monocytes/100 leukocytes 11 % High 1-7 [facility] Comment on above: Performed By: #### C DP, BMP ####[facility] [place] [address] Neutrophil (Seg) 47 % Normal 36-66 [facility] Comment on above: Performed By: #### C DP, BMP ####[facility] [place] [address] Platelet mean volume (PMV) 10.3 fL Normal 6.0-12.0 [facility] Comment on above: Performed By: #### C DP, BMP ####[address] [address] Platelets 232 10*3/uL Normal 150-450 [facility] Comment on above: Performed By: #### C DP, BMP ####[address] [address] WBC (Leukocytes) 8.4 10*3/uL Normal 3.5-11.0 [facility] Comment on above: Performed By: #### C DP, BMP ####[address] [address] Auto Diff Performed NOT REPORTED Normal [facility] Comment on above: Performed By: #### C DP, BMP ####[facility] [place] [address] Erythrocyte morphology NOT REPORTED Normal [facility] Comment on above: Performed By: #### C DP, BMP ####[address] [address] Erythrocytes (RBC) NOT REPORTED Normal [facility] Comment on above: Performed By: #### C DP, BMP ####[facility] [place] [address] Granulocytes/100 WBC (Bld) NOT REPORTED Normal 0.00-0.30 [facility] Comment on above: Performed By: #### C DP, BMP ####[address] [address] Immature granulocytes #/vol (Bld) NOT REPORTED Normal 0 [facility] Comment on above: Performed By: #### C DP, BMP ####[facility] [place] [address] Platelets NOT REPORTED Normal [facility] Comment on above: Performed By: #### C DP, BMP ####[address] [address] WBC Morphology NOT REPORTED Normal [facility] Comment on above: Performed By: #### C DP, BMP ####[address] [address] Vital Signs Date Time Vital Sign Value Performing Clinician Facility 10-30-2024 13:39-0500 Body height 160 cm Santo Christianson DPM Work Phone: [facility] 10-30-2024 13:39-0500 Body mass index (BMI) [Ratio] 26.18 kg/m2 Santo Christianson DPM Work Phone: [facility] 10-30-2024 13:39-0500 Body weight 67.04 kg Santo Christianson DPM Work Phone: [facility] 09-26-2024 13:39-0500 Body mass index (BMI) [Ratio] 26.17 kg/m2 Rose Velasquez [employer]ER [employer]PERATOR[employer] INSPECTOR Work Phone: [facility] 09-26-2024 13:39-0500 Body weight 67 kg Rose Velasquez [employer]ER AND [employer]UTTER OPERATOR[employer] INSPECTOR Work Phone: [facility] 09-26-2024 13:39-0500 Diastolic blood pressure 81 mm[Hg] Rose Velasquez [employer] AND CUTTER OPERATOR.[employer] INSPECTOR Work Phone: [facility] 09-26-2024 13:39-0500 Heart rate 91 /min Roseanna Velasquez [employer] SIZER AND CUTTER OPERATOR.[employer] R[employer] INSPECTOR Work Phone: [facility] 09-26-2024 13:39-0500 SaO2% (BldA) [Mass fraction] 96 % Roseanna Velasquez TU[employer] SIZER AND CUTTER OPERATOR.[employer] RAY INSPECTOR Work Phone: [facility] 09-26-2024 13:39-0500 Systolic blood pressure 143 mm[Hg] Rose Velasquez TU[employer] SIZER AND CUTTER OPERATOR.[employer] RAY INSPECTOR Work Phone: [facility] 08-29-2024 13:53-0400 Body height 160 cm Maria C Kramer MD Work Phone: [facility] 08-29-2024 13:53-0400 Body mass index (BMI) [Ratio] 26.22 kg/m2 Maria C Kramer MD Work Phone: [facility] 08-29-2024 13:53-0400 Body weight 67.13 kg Maria C Kramer MD Work Phone: [facility] 08-29-2024 13:53-0400 Diastolic blood pressure 68 mm[Hg] Maria C Kramer MD Work Phone: [facility] 08-29-2024 13:53-0400 Heart rate 87 /min Maria C Kramer MD Work Phone: [facility] [facility] 08-29-2024 13:53-0400 Systolic blood pressure 125 mm[Hg] Maria C Kramer MD Work Phone: [facility] 08-14-2024 15:57-0400 Body height 160 cm Bia Cao MD Work Phone: [facility] 08-14-2024 15:57-0400 Body mass index (BMI) [Ratio] 26.18 kg/m2 Bia Cao MD Work Phone: [facility] 08-14-2024 15:57-0400 Body weight 67.04 kg Bia Cao MD Work Phone: [facility] 08-14-2024 15:57-0400 Diastolic blood pressure 88 mm[Hg] Bia Cao MD Work Phone: [facility] 08-14-2024 15:57-0400 Heart rate 88 /min Bia Cao MD Work Phone: [facility] 08-14-2024 15:57-0400 SaO2% (BldA) [Mass fraction] 95 % Bia Cao MD Work Phone: [facility] 08-14-2024 15:57-0400 Systolic blood pressure 148 mm[Hg] Bia Cao MD Work Phone: [facility] 08-08-2024 11:40-0400 Body height 160 cm Bia Cao MD Work Phone: [facility] 08-08-2024 11:40-0400 Body mass index (BMI) [Ratio] 26.43 kg/m2 Bia Cao MD Work Phone: [facility] 08-08-2024 11:40-0400 Body weight 67.68 kg Bia Cao MD Work Phone: [facility] 08-08-2024 11:40-0400 Diastolic blood pressure 84 mm[Hg] Bia Cao MD Work Phone: [facility] 08-08-2024 11:40-0400 Heart rate 77 /min Bia Cao MD Work Phone: [facility] 08-08-2024 11:40-0400 Respiratory rate 20 /min Bia Cao MD Work Phone: [facility] 08-08-2024 11:40-0400 SaO2% (BldA) [Mass fraction] 97 % Bia Cao MD Work Phone: [facility] 08-08-2024 11:40-0400 Systolic blood pressure 136 mm[Hg] Bia Cao MD Work Phone: [facility] 07-10-2024 15:39-0400 Body height 160 cm Bia Cao MD Work Phone: [facility] 07-10-2024 15:39-0400 Body mass index (BMI) [Ratio] 27.1 kg/m2 Bia Cao MD Work Phone: [facility] 07-10-2024 15:39-0400 Body weight 69.4 kg Bia Cao MD Work Phone: [facility] 07-10-2024 15:39-0400 Diastolic blood pressure 72 mm[Hg] Bia Cao MD Work Phone: [facility] 07-10-2024 15:39-0400 Heart rate 90 /min Bia Cao MD Work Phone: [facility] 07-10-2024 15:39-0400 Respiratory rate 18 /min Bia Cao MD Work Phone: [facility] 07-10-2024 15:39-0400 SaO2% (BldA) [Mass fraction] 97 % iBa Cao MD Work Phone: [facility] 07-10-2024 15:39-0400 Systolic blood pressure 126 mm[Hg] Bia Cao MD Work Phone: [facility] 04-04-2024 11:29-0400 Body height 160 cm Mandi Hoover MD Work Phone: [facility] 04-04-2024 11:29-0400 Body mass index (BMI) [Ratio] 27.18 kg/m2 Mandi Hoover MD Work Phone: [facility] 04-04-2024 11:29-0400 Body temperature 97.7 [degF] Mandi Hoover MD Work Phone: [facility] 04-04-2024 11:290400 Body weight 69.6 kg Mandi Hoover MD Work Phone: [facility] 04-04-2024 11:29-0400 Diastolic blood pressure 65 mm[Hg] Mandi Hoover MD Work Phone: [facility] 04-04-2024 11:29-0400 Heart rate 80 /min Mandi Hoover MD Work Phone: [facility] 04-04-2024 11:290400 Respiratory rate 18 /min Mandi Hoover MD Work Phone: [facility] 04-04-2024 11:29-0400 SaO2% (BldA) [Mass fraction] 96 % Mandi Hoover MD Work Phone: [facility] 04-04-2024 11:290400 Systolic blood pressure 105 mm[Hg] Mandi Hoover MD Work Phone: [facility] 02-24-2024 12:020400 Body height 160 cm Ryan Dallas MD Work Phone: [facility] 02-24-2024 12:02-0400 Body mass index (BMI) [Ratio] 27.21 kg/m2 Ryan Dallas MD Work Phone: [facility] 02-24-2024 12:02-0400 Body weight 69.67 kg Ryan Dallas MD Work Phone: [facility] 02-24-2024 12:02-0400 Diastolic blood pressure 76 mm[Hg] Ryan Dallas MD Work Phone: [facility] 02-24-2024 12:02-0400 Heart rate 78 /min Ryan Dallas MD Work Phone: [facility] 02-24-2024 12:02-0400 Respiratory rate 16 /min Ryan Dallas MD Work Phone: [facility] [employer] [facility] 02-24-2024 12:02-0400 SaO2% (BldA) [Mass fraction] 94 % Ryan Dallas MD Work Phone: [facility] [employer] [facility] 02-24-2024 12:02-0400 Systolic blood pressure 147 mm[Hg] Ryan Dallas MD Work Phone: [facility] [employer] [facility] 01-07-2024 10:29-0500 Body height 160 cm Yoanna Dorsey TUBE SIZER AND CUTTER OPERATOR-X RAY INSPECTOR Work Phone: [facility] 01-07-2024 10:29-0500 Body mass index (BMI) [Ratio] 27.63 kg/m2 Yoanna Dorsey [employer] SI[employer]ER [employer]UT[employer] OPERATOR-X RAY INSPECTOR Work Phone: [facility] [employer] [facility] 01-07-2024 10:29-0500 Body weight 70.76 kg Yoanna Dorsey TUBE SIZER AND CUTTER OPERATOR-X RAY INSPECTOR Work Phone: [facility] 01-07-2024 10:29-0500 Diastolic blood pressure 78 mm[Hg] Yoanna Dorsey TUBE SIZER AND CUTTER OPERATOR-X RAY INSPECTOR Work Phone: [facility] [employer] [facility] 01-07-2024 10:29-0500 Heart rate 80 /min Yoanna Dorsey TUBE SIZER AND CUTTER OPERATOR-X RAY INSPECTOR Work Phone: [facility] 01-07-2024 10:29-0500 Systolic blood pressure 124 mm[Hg] Yoanna Dorsey TUBE SIZER AND CUTTER OPERATOR-X RAY INSPECTOR Work Phone: [facility] Encounters Encounter Date Encounter Type Care Provider Facility Start: 11-06-2024 End: 11-06-2024 Refill Bia Cao MD Work Phone: [facility] Comment on above: Hyperlipidemia, unsp ecified hyperlipidemia type (CMS/HCC) Start: 10-30-2024 End: 10-30-2024 Bamboo flowsheet Santo Christianson DPM Work Phone: [facility] Start: 10-30-2024 End: 10-30-2024 Bamboo flowsheet Santo Christianson DPM Work Phone: [facility] Start: 10-30-2024 End: 10-30-2024 Patient encounter procedure Santo Christianson DPM Work Phone: [facility] Comment on above: Dermatophytosis of n ail (Primary Dx); Dystrophic nail; Pain around toenail, right foot; Pain around toenail, left foot Start: 10-30-2024 End: 10-30-2024 ambulatory SANTO CHRISTIANSON Not Available Start: 10-04-2024 End: 10-06-2024 Telephone encounter Rose Velasquez TUBE SIZER AND CUTTER OPERATOR.X RAY INSPECTOR Work Phone: [facility] Comment on above: Patient Question Start: 09-26-2024 End: 09-26-2024 ambulatory ROSE VELASQUEZ Facility:[facility] Start: 09-26-2024 End: 09-26-2024 Patient encounter procedure Rose Velasquez TUBE SIZER AND CUTTER OPERATOR.X RAY INSPECTOR Work Phone: Neurosurgery Comment on above: 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); Dizziness Start: 09-26-2024 End: 09-26-2024 ambulatory MANDIREHAN SCOTTINOS Facility:[facility] Start: 09-26-2024 End: 09-26-2024 Subsequent hospital visit by physician Mri [facility] (Lg Bore/1.5t) Radiology MRI Comment on above: 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 Start: 08-14-2024 End: 08-14-2024 Office outpatient visit 15 minutes Bia Cao MD Work Phone: [facility] Comment on above: Acute bronchitis, un specified organism (Primary Dx); Seasonal allergic rhinitis due to pollen Start: 08-14-2024 End: 08-14-2024 ambulatory BIA CAO Not Available Start: 08-14-2024 End: 08-14-2024 Bamboo flowsheet Bia Cao MD Work Phone: [facility] Start: 08-14-2024 End: 08-14-2024 Bamboo flowsheet Bia Cao MD Work Phone: [facility] Start: 08-08-2024 End: 08-08-2024 Bamboo flowsheet Bia Cao MD Work Phone: [facility] Start: 08-08-2024 End: 08-08-2024 Bamboo flowsheet Bia Cao MD Work Phone: [facility] Start: 08-08-2024 End: 08-08-2024 Office outpatient visit 25 minutes Bia Cao MD Work Phone: [facility] Comment on above: Hoarse (Primary Dx); Purulent postnasal drainage; Primary insomnia; Gastroesophageal reflux disease without esophagitis Start: 08-08-2024 End: 08-08-2024 ambulatory BIA CAO Not Available Start: 07-17-2024 End: 07-17-2024 ambulatory Adelfo Hansen MD Facility:[facility] Start: 07-14-2024 End: 07-14-2024 Orders Only Bia Cao MD Work Phone: [facility] Comment on above: Acute cystitis witho ut hematuria (Primary Dx) Start: 07-13-2024 End: 07-13-2024 ambulatory [facility] Start: 07-11-2024 End: 07-11-2024 Orders Only Bia Cao MD Work Phone: [facility] Comment on above: Acute cystitis witho ut hematuria (Primary Dx) Start: 07-10-2024 End: 07-10-2024 Office outpatient visit 25 minutes Bia Cao MD Work Phone: [facility] Comment on above: Urinary frequency (P rimary Dx); Dysuria; Chronic idiopathic constipation; Chronic right-sided thoracic back pain Start: 07-10-2024 End: 07-10-2024 ambulatory BIA CAO Not Available Start: 07-10-2024 End: 07-10-2024 Bamboo flowsheet Bia Cao MD Work Phone: [facility] Start: 07-10-2024 End: 07-10-2024 Bamboo flowsheet Bia Cao MD Work Phone: [facility] Start: 07-10-2024 End: 07-10-2024 ambulatory [facility] Start: 07-03-2024 End: 07-03-2024 ambulatory TRACI FLORES Not Available Start: 06-14-2024 End: 06-14-2024 ambulatory [facility] Start: 05-09-2024 Orders Only Mandi gambino MD Work Phone: [facility] [place] Comment on above: Intracranial meningi brandon (HCC) (Primary Dx); Benign neoplasm of meninges (HCC) Start: 05-04-2024 End: 05-04-2024 ambulatory BIA CAO Not Available Start: 05-01-2024 End: 05-01-2024 ambulatory Adelfo Hansen MD Facility: [facility] Start: 04-05-2024 End: 04-05-2024 ambulatory BIA CAO Not Available Start: 04-04-2024 End: 04-04-2024 ambulatory MANDI HOOVER Facility:[facility] Start: 04-04-2024 End: 04-04-2024 Patient encounter procedure Mandi Hoover MD Work Phone: [facility] Comment on above: Intracranial meningi brandon (HCC) (Primary Dx); Sensorineural hearing loss (SNHL) of right ear, unspecified hearing status on contralateral side; Dizziness Start: 04-03-2024 End: 04-03-2024 ambulatory BIA CAO Not Available Start: 03-24-2024 Telephone encounter Neurology Provid er Neurology Comment on above: Received Outside Med [facility] Records (External referral to Neurological [place]/); triage; Nurse Triage Call; Appointment Start: 03-24-2024 End: 03-24-2024 ambulatory [facility] Start: 03-16-2024 [facility] Start: 03-13-2024 End: 03-13-2024 ambulatory Adelfo Hansen MD Facility: [facility] Start: 03-10-2024 End: 03-10-2024 ambulatory [facility] Start: 03-02-2024 End: 03-02-2024 ambulatory BIA CAO Not Available Start: 02-24-2024 End: 02-24-2024 Office outpatient visit 15 minutes Ryan Dallas MD Work Phone: [facility] Comment on above: Essential hypertensi on (Primary Dx); LVH (left ventricular hypertrophy); Mixed hyperlipidemia; Hypotension due to drugs Start: 02-22-2024 End: 02-22-2024 ambulatory BIA CAO Not Available Start: 02-15-2024 End: 02-15-2024 ambulatory BIA CAO Not Available Start: 02-11-2024 End: 02-12-2024 Emergency department patient visit JUAN Castillo [facility] Start: 02-10-2024 Orders Only Ryan aquino MD Work Phone: [facility] Comment on above: Essential hypertensi on Start: 02-09-2024 Refill [facility] Start: 02-07-2024 End: 02-07-2024 ambulatory Adelfo Hansen MD Facility:[facility] Start: 01-18-2024 End: 01-18-2024 ambulatory RIA NATE Not Available Start: 01-12-2024 End: 01-12-2024 ambulatory RIATIEN SNYDER Not Available Start: 01-11-2024 End: 01-11-2024 ambulatory [facility] Start: 01-10-2024 End: 01-10-2024 ambulatory Adelfo Hansen MD Facility: [facility] Start: 01-07-2024 End: 01-07-2024 Office outpatient visit 25 minutes Yoanna Bigfoot TUBE SIZER AND CUTTER OPERATOR-X RAY INSPECTOR Work Phone: [facility] Comment on above: Migraine without aur a and without status migrainosus, not intractable (Primary Dx); Bilateral occipital neuralgia; Essential tremor; Cervicalgia; Trapezius muscle spasm; Balance problem; Psychophysiological insomnia; Polyneuropathy; Prediabetes; Essential (primary) hypertension; Abnormal level of blood mineral; Decreased hearing of both ears Start: 01-07-2024 End: 01-07-2024 ambulatory [facility] Start: 01-06-2024 End: 01-06-2024 ambulatory Ria Snyder [employer] Work Phone: [facility] Comment on above: General weakness (Pr imary Dx); History of falling Start: 01-04-2024 Bamboo flowsheet Ria Lopezig ht [employer] Work Phone: [facility] Start: 01-04-2024 Bamboo flowsheet Ria Lopezig ht [employer] Work Phone: [facility] Start: 01-04-2024 End: 01-04-2024 ambulatory Ria Snyder [employer] Work Phone: [facility] Comment on [...] Start: 12-23-2023 End: 12-23-2023 ambulatory Ria Snyder [employer] Work Phone: [facility] Comment on above: General weakness (Pr imary Dx); History of falling Start: 12-21-2023 End: 12-21-2023 ambulatory RIA SNYDER Not Available Start: 12-16-2023 End: 12-16-2023 ambulatory RIA SNYDER Not Available Start: 12-13-2023 Antony aggarwal MD Work Phone: [facility] Start: 12-08-2023 End: 12-08-2023 ambulatory ELMER Guillermo WILVER Not Available Start: 12-07-2023 End: 12-07-2023 ambulatory SANTO A RADHA Not Available Start: 12-06-2023 End: 12-06-2023 ambulatory BIA CAO Not Available Start: 12-03-2023 End: 12-03-2023 ambulatory JOHN [facility] Start: 11-29-2023 End: 11-29-2023 ambulatory LALIT Guillermo [facility] Start: 11-23-2023 End: 11-23-2023 ambulatory BIA CAO Not Available Start: 11-11-2023 End: 11-11-2023 ambulatory ELMER PETTIT Not Available Start: 11-08-2023 End: 11-08-2023 ambulatory RIA SNYDER Not Available Start: 11-04-2023 End: 11-04-2023 ambulatory ELMER PETTIT Not Available Start: 10-12-2022 End: 10-12-2022 ambulatory BIA CAO [facility] Start: 09-28-2022 End: 09-28-2022 ambulatory BIA Mccormick [facility] Start: 05-16-2018 End: 05-16-2018 Ambulatory AUDREY HORN [facility] Start: 05-06-2018 End: 05-11-2018 Ambulatory LENNY BRIGGSAMANDATIA [facility] Start: 05-02-2018 Patient encounter status [facility]iet[facility] Johnson [facility] Work Phone: Procedures Date Procedure Procedure Detail Performing Clinician Start: 09-26-2024 Mri brain brain stem w/o w/contrast material Mandi Hoover MD Work Phone: Start: 08-29-2024 MEASURE POST VOID RESIDUAL Maria C Kramer MD Work Phone: Start: 08-29-2024 Urnls dip stick/tabl et rgnt auto w/o microscopy Maria C Kramer MD Work Phone: Start: 08-16-2024 STATUS COVID-19/FLU Elizabeth Cao MD Work Phone: Start: 07-13-2024 Adult depression scr eening assessment Linda Ochoa Start: 07-10-2024 Urnls dip stick/tabl et rgnt non-auto w/o micrscp Bia Cao MD Work Phone: Start: 06-14-2024 Follow-up visit Follow-up JOHN JOHNSON Start: 01-07-2024 Adult depression scr eening assessment Yoanna Willian SANTOSN-X RAY INSPECTOR Work Phone: Start: 11-29-2023 Follow-up visit Follow-up LALIT LEACH Start: 04-23-2023 Adult depression scr eening assessment Johnangela Johnson MD Work Phone: Start: 05-16-2018 DISCHARGE PATIENT LENNY BRIGGSRUTHConnie Start: 05-16-2018 BEDREST LENNY ABBIE PAIZ Start: 05-16-2018 Continuous pulse oximetry LENNY MILO Start: 05-16-2018 ENCOURAGE DEEP BREAT KELSEA AND COUGHING LENNY PEDRAZA Start: 05-16-2018 NOTIFY PHYSICIAN (SPECIFY) LENNY PEDRAZA Start: 05-16-2018 NURSING COMMUNICATION M FEDERICO PEDRAZA Start: 05-16-2018 INITIATE OXYGEN THER APY PROTOCOL LENNY PEDRAZA Start: 05-16-2018 INSERT PERIPHERAL IV MA JORDAN BRIGGSRUTHConnie Start: 05-16-2018 VITAL SIGNS LENNY PAIZ Start: 05-06-2018 Basic metabolic pane l calcium total LENNY PEDRAZA Start: 05-06-2018 Blood count complete auto&auto difrntl wbc LENNY PEDRAZA Plan of Treatment Date Care Activity Detail Author Start: 02-10-2027 Diabetes Screening Diabetes Screening [facility] Start: 08-29-2025 Adult BMI Screening Adult BMI Screening [facility] Start: 08-29-2025 Tobacco Screening Tobacco Screening [facility] Start: 07-13-2025 Adult BMI Screening Adult BMI Screening [facility] Start: 07-13-2025 Depression Screening Depression Screening [facility] Start: 07-13-2025 Tobacco Screening Tobacco Screening [facility] Start: 05-21-2025 Influenza vaccination Influenza Vaccine (#1) [facility] Comment on above: Postponed from 07/23/2024 (Other Medical Reasons) Start: 03-10-2025 Fall Risk Screening Fall Risk Screening [facility] Start: 02-10-2025 Adult BMI Screening Adult BMI Screening [facility] Start: 01-18-2025 End: 01-18-2025 Patient encounter procedure 01/18/2025 11:00 AM EST Office Visit [facility] [address] [place] [address] Yoanna Dorsey APRN-X RAY INSPECTOR [address] [place] [address] [facility] Start: 01-07-2025 Adult BMI Screening Adult BMI Screening [facility] Start: 01-07-2025 Depression Screening Depression Screening [facility] Start: 01-07-2025 Tobacco Screening Tobacco Screening [facility] Start: 12-19-2024 End: 12-19-2024 Patient encounter procedure 12/19/2024 12:45 PM EST Office Visit [facility] [address] [place] [address] [place] [phone] Maria C Kramer MD [address] [place] [address] [facility] Start: 12-08-2024 End: 12-08-2024 Patient encounter procedure 12/08/2024 11:40 AM EST Office Visit [facility] [address] [place] [phone] Bia Cao MD [address] [place], [place] [phone] [facility] Start: 12-06-2024 Medicare Annual Wellness (AWV) Medicare Annual Wellness (AWV) [facility] Start: 12-06-2024 End: 12-06-2024 Patient encounter procedure 12/06/2024 11:45 AM EST Office Visit [facility] [address] [facility] [address] [place] [address] John Johnson MD [address] [facility] [place] [address] [facility] Start: 11-29-2024 Adult BMI Screening Adult BMI Screening [facility] Start: 11-29-2024 Tobacco Screening Tobacco Screening [facility] Start: 10-30-2024 End: 10-30-2024 Patient encounter procedure 10/30/2024 1:45 PM EST Off ice Visit [facility] [address] [place] [phone] Santo Christianson DPM [address] [place], [place] [phone] [facility] Comment on above: Arrived Start: 10-01-2024 Fall Risk Screening Fall Risk Screening [facility] Start: 08-29-2024 End: 08-29-2024 Patient encounter procedure 08/29/2024 1:30 PM EDT Off ice Visit [facility] [address] [place] [address] [place] [phone] Maria C Kramer MD [address] [place] [address] [facility] Start: 08-28-2024 End: 06-08-2025 MR Brain WO and W contrast IV MRI BRAIN WO/W IVCON Radiology Routine Benign neoplasm of meninges (HCC) Expected: 08/28/2024 (Approximate), Expires: 06/08/2025 [facility] Work Phone: Comment on above: Expected: 08/28/2024 (Approximate), Expi res: 06/08/2025 Start: 08-14-2024 End: 08-14-2024 Patient encounter procedure 08/14/2024 4:00 PM EDT Off ice Visit [facility] [address] [place] [phone] Bia Cao MD [address] [place] [address] Arrived [facility] Comment on above: Arrived Start: 08-08-2024 End: 08-08-2024 Patient encounter procedure 08/08/2024 11:40 AM EDT Office Visit [facility] [address] [place] [phone] Bia Cao MD [address] [place] [address] Arrived [facility] Comment on above: Arrived Start: 08-04-2024 End: 08-04-2024 Patient encounter procedure 08/04/2024 11:00 AM EDT Office Visit [facility] [address] [place] [phone] Bia Cao MD [address] [place] [address] [facility] Start: 07-23-2024 COVID-19 Vaccine ( season) COVID-19 Vaccine ( season) [facility] Start: 07-23-2024 Covid-19 Vaccine ( season) Covid-19 Vaccine () [facility] Start: 07-23-2024 Influenza vaccination [facility] Start: 07-10-2024 End: 07-10-2025 Bacteria identified in Urine by Culture Urine culture (clean catch) Microbiology Routine Dysuria Expected: 07/10/2024 (Approximate), Expires: 07/10/2025 [facility] Work Phone: Comment on above: Expected: 07/10/2024 (Approximate), Expi res: 07/10/2025 Start: 07-10-2024 End: 07-10-2025 Urinalysis complete panel - Urine Urinalysis with reflex microscopic (clean catch) Lab Routine Dysuria Expected: 07/10/2024 (Approximate), Expires: 07/10/2025 [facility] Comment on above: Expected: 07/10/2024 (Approximate), Expi res: 07/10/2025 Start: 07-10-2024 End: 07-10-2024 Patient encounter procedure [facility] Comment on above: Arrived Start: 05-21-2024 Influenza vaccination Influenza Vaccine (#1) [facility] Comment on above: Postponed from 07/23/2023 (Patient Refus ed) Start: 04-23-2024 Depression Screening Depression Screening [facility] Start: 04-11-2024 End: 04-11-2024 Patient encounter procedure 04/11/2024 2:45 PM EDT Off ice Visit [facility] [address] [place] [address] John Johnson MD [address] [place] [address] [facility] Start: 04-04-2024 End: 04-04-2024 Patient encounter procedure 04/04/2024 10:30 AM EDT Office Visit [facility] [place] [address] [place] [address] Mandi Hoover MD [address] [place] [address] Time Frame: First available [facility] Comment on above: Time Frame: First available Start: 04-03-2024 End: 04-03-2024 Patient encounter procedure 04/03/2024 11:20 AM EDT Office Visit [facility] [address] [place] [phone] Bia Cao MD [address] [place], [place] [phone] [facility] Start: 02-09-2024 End: 02-09-2024 Patient encounter procedure 02/09/2024 11:00 AM EDT Office Visit [facility] [address] [facility] [address] [place] [phone] Ryan Dallas MD [address] [facility] [place], [place] [phone] [facility] Start: 01-20-2024 End: 01-20-2024 ambulatory 01/20/2024 11:00 AM EST Treatment [facility] [address] [place] [phone] Elmer Pettit, PT [address] [place], [place] [phone] [facility] Start: 01-18-2024 End: 01-18-2024 ambulatory 01/18/2024 11:30 AM EST Treatment [facility] [address] [place] [phone] Ria Snyder, [employer] [address] [place] [address] [facility] Start: 01-14-2024 End: 01-14-2024 ambulatory 01/14/2024 1:00 PM EST Treatment [facility] [address] [place] [phone] Ria Snyder, [employer] [address] [place] [address] [facility] Start: 01-12-2024 End: 01-12-2024 ambulatory 01/12/2024 12:30 PM EST Treatment [facility] [address] [place] [phone] Ria Snyder, [employer] [address] [place] [address] [facility] Start: 01-11-2024 End: 01-11-2024 Patient encounter procedure 01/11/2024 11:00 AM EST Office Visit [facility] [address] [place] [address] Yoanna Dorsey, TUBE SIZER AND CUTTER OPERATOR-X RAY INSPECTOR [address] [place] [address] [facility] Start: 01-06-2024 End: 01-06-2024 ambulatory [facility] Start: 01-04-2024 End: 01-04-2024 ambulatory 01/04/2024 11:30 AM EST Treatment [facility] [address] [place] [id number] Ria Snyder, [employer] [address] [place] [address] [facility] Start: 12-31-2023 End: 12-31-2023 ambulatory 12/31/2023 10:00 AM EST Treatment [facility] [address] [place] [address] Ria Snyder, [employer] [address] [place] [address] [facility] Start: 12-30-2023 End: 12-30-2023 ambulatory 12/30/2023 11:30 AM EST Treatment [facility] [address] [place] [address] Elmer Pettit, PT [address] [place] [address] [facility] Start: 12-28-2023 End: 12-28-2023 ambulatory 12/28/2023 11:30 AM EST Treatment [facility] [address] [place] [address] Ria Snyder, [employer] [address] [place] [address] [facility] Start: 11-22-2023 Advance Directive Discussion Advance Directive Discussion [facility] Start: 11-22-2023 Behavioral Health Screening Behavioral Health Screening [facility] Start: 07-23-2023 COVID-19 Vaccine ( season) COVID-19 Vaccine ( season) [facility] Start: 07-23-2023 Influenza vaccination Influenza Vaccine [facility] Start: 08-21-2021 DTaP,Tdap and Td Vaccines (2 - Td or Tdap) DTaP,Tdap and Td Vaccines (2 - Td or Tdap) [facility] Start: 2020 RSV Vaccine (1 - 1-dose 75+ series) RSV Vaccine (1 - 1-dose 75+ series) [facility] Start: 08-22-2011 Urine microalbumin profile DTaP,Tdap,Td Vaccine (1 - Tdap) [facility] Start: 01-17-2010 Administration of varicella zoster vaccine Zoster (Shingles) Vaccine (2 of 3) [facility] Start: 2005 RSV Vaccine (1 - 1-dose 60+ series) RSV Vaccine (1 - 1-dose 60+ series) [facility] Start: 1995 Shingrix Vaccine (1 of 2) Shingrix Vaccine (1 of 2) [facility] Start: 1963 Adult BMI Follow Up Plan Adult BMI Follow Up Plan [facility] Start: 1963 Anxiety Screening Anxiety Screening [facility] Start: 1963 Depression Screening Depression Screening [facility] Start: 1963 Hepatitis C screening Hepatitis C Screening [facility] Start: 1945 Medicare Annual Wellness Visit Medicare Annual Wellness Visit [facility] End: 01-07-2025 CBC W Auto Differential panel - Blood CBC auto differential Lab Routine Essential tremor Balance problem Polyneuropathy 1 Occurrences starting 01/07/2024 until 01/07/2025 [facility] Comment on above: 1 Occurrences starting 01/07/2024 until 01/07/2025 End: 01-07-2025 Cyanocobalamin vitamin b-12 Vitamin B12 Lab Routine Balance problem Polyneuropathy 1 Occurrences starting 01/07/2024 until 01/07/2025 [facility] Comment on above: 1 Occurrences starting 01/07/2024 until 01/07/2025 End: 01-07-2025 Ferritin [Mass/volume] in Serum or Plasma Ferritin Lab Routine Polyneuropathy Abnormal level of blood mineral 1 Occurrences starting 01/07/2024 until 01/07/2025 [facility] Comment on above: 1 Occurrences starting 01/07/2024 until 01/07/2025 End: 01-07-2025 Folate [Mass/volume] in Serum or Plasma Folate Serum Lab Routine Balance problem Polyneuropathy 1 Occurrences starting 01/07/2024 until 01/07/2025 [facility] Comment on above: 1 Occurrences starting 01/07/2024 until 01/07/2025 End: 01-07-2025 Hemoglobin A1c/Hemoglobin.total in Blood Hemoglobin A1c Lab Routine Balance problem Polyneuropathy Prediabetes 1 Occurrences starting 01/07/2024 until 01/07/2025 [facility] Comment on above: 1 Occurrences starting 01/07/2024 until 01/07/2025 End: 01-07-2025 Homocysteine total Homocysteine total Lab Routine Balance problem Polyneuropathy Essential (primary) hypertension 1 Occurrences starting 01/07/2024 until 01/07/2025 [facility] Comment on above: 1 Occurrences starting 01/07/2024 until 01/07/2025 End: 01-07-2025 Immunoelectrophoresis for Therapy Monitoring Immunoelectrophoresis for Therapy Monitoring Lab Routine Balance problem Polyneuropathy 1 Occurrences starting 01/07/2024 until 01/07/2025 [facility] Comment on above: 1 Occurrences starting 01/07/2024 until 01/07/2025 End: 01-07-2025 Iron and TIBC Iron and TIBC Lab Routine Essential tremor Balance problem Polyneuropathy Abnormal level of blood mineral 1 Occurrences starting 01/07/2024 until 01/07/2025 [facility] Comment on above: 1 Occurrences starting 01/07/2024 until 01/07/2025 End: 01-07-2025 Methylenetetrahydrofolate reductase Methylenetetrahydrofolate reductase Lab Routine Balance problem Polyneuropathy 1 Occurrences starting 01/07/2024 until 01/07/2025 [facility] Comment on above: 1 Occurrences starting 01/07/2024 until 01/07/2025 End: 01-07-2025 Methylmalonic acid screen Methylmalonic acid screen La b Routine Balance problem Polyneuropathy 1 Occurrences starting 01/07/2024 until 01/07/2025 [facility] Work Phone: Comment on above: 1 Occurrences starting 01/07/2024 until 01/07/2025 End: 10-26-2025 MR Brain WO and W contrast IV MRI BRAIN WO/W IVCON Radiology Routine Benign neoplasm of meninges (HCC) 1 Occurrences starting 09/26/2024 until 10/26/2025 [facility] Work Phone: Comment on above: 1 Occurrences starting 09/26/2024 until 10/26/2025 End: 01-07-2025 Protein electrophoresis, serum Protein electrophoresis, serum Lab Routine Balance problem Polyneuropathy 1 Occurrences starting 01/07/2024 until 01/07/2025 [facility] Comment on above: 1 Occurrences starting 01/07/2024 until 01/07/2025 End: 01-07-2025 Thyroid profile includes TSH FT4 Thyroid profile includes TSH FT4 Lab Routine Balance problem Polyneuropathy Prediabetes 1 Occurrences starting 01/07/2024 until 01/07/2025 [facility] Comment on above: 1 Occurrences starting 01/07/2024 until 01/07/2025 Immunizations Immunization Date Immunization Notes Care Provider Fa [facility] 10-26-2024 RSV, recombinant, protein subunit RSVpreF, adjuvant reconstitu, 120mcg/0.5mL, PF (Arexvy) Santo Christianson DPM Work Phone: [facility] 03-12-2021 COVID-19, mRNA, LNP- S, PF, 100mcg/0.5mL Dose John Johnson MD Work Phone: [facility] 03-11-2021 Moderna SARS-CoV-2 Vaccination Ria Snyder [employer] Work Phone: [facility] 02-12-2021 COVID-19, mRNA, LNP- S, PF, 100mcg/0.5mL Dose John Johnson MD Work Phone: [facility] 02-11-2021 Moderna SARS-CoV-2 Vaccination Ria Snyder [employer] Work Phone: [facility] 11-12-2020 pneumococcal conjuga te vaccine, 13 valent John Johnson MD Work Phone: [facility] 09-17-2020 influenza, high dose seasonal, preservative-free John Johnson MD Work Phone: [facility] 09-17-2020 Seasonal, quadrivale nt, recombinant, injectable influenza vaccine, preservative free John Johnson MD Work Phone: [facility] 09-17-2020 influenza virus vacc ine, unspecified formulation John Johnson MD Work Phone: [facility] 08-30-2019 Seasonal, quadrivale nt, recombinant, injectable influenza vaccine, preservative free John Johnson MD Work Phone: [facility] 08-29-2018 influenza, injectabl e, quadrivalent, preservative free John Johnson MD Work Phone: [facility] 08-22-2015 influenza, seasonal, injectable, preservative free Ria Snyder [employer] Work Phone: [facility] 08-13-2015 pneumococcal polysaccharide vaccine, 23 valent Ria Snyder [employer] Work Phone: [facility] 08-21-2011 tetanus and diphther ia toxoids, adsorbed, preservative free, for adult use (5 Lf of tetanus toxoid and 2 Lf of diphtheria toxoid) John Johnson MD Work Phone: [facility] 11-22-2009 zoster vaccine, live Juan Snyder [employer] Work Phone: [facility] 11-22-2009 zoster vaccine, unspecified formulation John Johnson MD Work Phone: [facility] Payers Date Payer Category Payer Medicaid [employer] MED[employer]ARE A DVANTAGE [id number] 2022 Private Health Insurance 2021 Medicare [id number] 2021 Medicare [id number] 2013 Medicare [id number] 1945 Unknown [id number] 2.840.1.608112.3.579.2. 175 1945 Unknown [id number] 2.840.1.498818.3.579.2. 175 1945 Unknown [id number] 2.840.1.302446.3.579.2. 1285 1945 Unknown [id number] 2.840.1.630064.3.579.2. 1285 1945 Unknown [id number] 2.840.1.944196.3.579.2. 1285 1945 Unknown [id number] 2.840.1.585066.3.579.2. 1285 1945 Unknown [id number] 2.0.1.023098.3.579.2. 1285 1945 Unknown [id number] 2.840.1.933979.3.579.2. 1285 1945 Unknown [id number] 2.840.1.631438.3.579.2. 1285 1945 Unknown [id number] 2.840.1.668943.3.579.2. 1285 1945 Unknown [id number] 2.840.1.131777.3.579.2. 1285 1945 Unknown [id number] 2.840.1.199466.3.579.2. 1286 1945 Unknown [id number] 2.840.1.104509.3.579.2. 1285 1945 Unknown [id number] 2.840.1.651071.3.579.2. 6 1945 Unknown [id number] 2.840.1.473482.3.579.2. 1285 1945 Unknown [id number] 2.16.840.1.365147.3.579.2. 1286 1945 Unknown [id number] 2.16.840.1.301826.3.579.2. 128 1945 Unknown [id number] 2.16.840.1.442803.3.579.2. 1285 1945 Unknown [id number] 2.16.840.1.664390.3.579.2. 196 1945 Unknown [id number] 2.16.840.1.977964.3.579.2. 1945 Unknown [id number] 2.16.840.1.279085.3.579.2. 1945 Unknown [id number] 2.16.840.1.725501.3.579.2. 1945 Unknown [id number] 2.16840.1.651732.3.579.2. 1945 Unknown [id number] 2.16.840.1.575956.3.579.2. 1945 Unknown [id number] 2.16.840.1.660970.3.579.2. 1945 Unknown [id number] 2.16.840.1.835446.3.579.2. 1258 1945 Unknown [id number] 2.16.840.1.722887.3.579.2. 1258 1945 Unknown [id number] 2.16.840.1.282539.3.579.2. 9 1945 Unknown [id number] 2.16.840.1.026676.3.579.2. 1258 1945 Unknown [id number] 2.16.840.1.408460.3.579.2. 9 1945 Unknown [id number] 2.16.840.1.821080.3.579.2. 1259 -08-1945 Unknown [id number] 2.16.840.1.810727.3.579.2. 1259 -08-1945 Unknown [id number] 2.16.840.1.424526.3.579.2. 1259 -08-1945 Unknown [id number] 2.16.840.1.482818.3.579.2. 1259 -08-1945 Unknown [id number] 2.16.840.1.704315.3.579.2. 1259 -08-1945 Unknown [id number] 2.16.840.1.654690.3.579.2. 1259 -08-1945 Unknown [id number] 2.16.840.1.055932.3.579.2. 1259 -08-1945 Unknown [id number] 2.16.840.1.475259.3.579.2. 1259 -08-1945 Unknown [id number] 2.16.840.1.756369.3.579.2. 1259 -08-1945 Unknown [id number] 2.16.840.1.372244.3.579.2. 1259 -08-1945 Unknown [id number] 2.16.840.1.804373.3.579.2. 1259 -08-1945 Unknown [id number] 2.16.840.1.956238.3.579.2. 1259 -08-1945 Unknown [id number] 2.16.840.1.629691.3.579.2. 1259 -08-1945 Unknown [id number] 2.16.840.1.275884.3.579.2. 1259 -08-1945 Unknown [id number] 2.16.840.1.114842.3.579.2. 1259 -08-1945 Unknown [id number] 2.16.840.1.925239.3.579.2. 1259 -08-1945 Unknown [id number] 2.16.840.1.348352.3.579.2. 1259 1945 Unknown [id number] 2.16.840.1.622494.3.579.2. 1259 1945 Unknown [id number] 2.16.840.1.737059.3.579.2. 1259 1945 Unknown [id number] 2.16.840.1.632438.3.579.2. 9 1945 Unknown [id number] 2.16.840.1.088713.3.579.2. 1259 1945 Unknown [id number] 2.16.840.1.835607.3.579.2. 9 1945 Unknown [id number] 2.16.840.1.567827.3.579.2. 9 1945 Unknown [id number] 2.16.840.1.052665.3.579.2. 1259 Social History Date Type Detail Facility Start: 11-29-2023 End: 04-03-2024 Tobacco smoking status NHIS Never smoked tobacco [facility] History of tobacco use Passive smoker [facility] Start: 11-29-2023 End: 04-03-2024 Tobacco use and exposure Smokeless tobacco non-user [facility] Start: 11-29-2023 End: 04-04-2024 Alcohol intake Current non-drinker of alcohol (finding) [facility] Start: 11-29-2023 End: 04-02-2024 Alcohol intake [facility] Start: 11-29-2023 End: 04-02-2024 Tobacco use panel [facility] Adolescent depressio n screening assessment 0 [facility] Start: 1945 Sex Assigned At Female [facility] Start: 05-22-2021 Gender identity Identifies as female gender (finding) [facility] Start: 05-22-2021 Sexual orientation Heterosexual (finding) [facility] Start: 12-07-2023 Alcohol intake Current drinker of alcohol (finding) [facility] Start: 06-13-2023 Alcohol Comment caffeine: occasional [facility] Start: 1945 Sex Assigned At Not on file [facility] Start: 07-10-2024 End: 08-14-2024 Alcoholic beverage intake Ex-drinker (finding) [facility] Do you belong to any clubs or organizations such as catholic groups, unions, fraternal or athletic groups, or school groups? Yes [facility] Are you now , , , , never or living with a partner? [facility] How often to you hav e a drink containing alcohol? Never [facility] How hard is it for y ou to pay for the very basics like food, housing, medical care, and heating Not very hard [facility] Do you feel stress - tense, restless, nervous, or anxious, or unable to sleep at night because your mind is troubled all the time - these days [OSQ] Rather much [facility] (I/We) worried wheth er (my/our) food would run out before (I/we) got money to buy more. Never true [facility] Start: 04-03-2024 Tobacco Comment Second hand smoke from Father [facility] Medical Equipment Procedure Code Equipment Code Equipment Origin al Text Equipment Identifier Dates Patch Dura 1x1in Drmtrx-[place] + Clgn Rgnrt Membr Strl - [id number] Start: 07-03-2021 Goals Date Patient Goal Desired Activity /State Personal health goal Comment on above: Formatting of this n ote might be different from the original. Evaluation of progress towards goal: safe transition from hospital to home with support of her friends/neighbors Personal health goal Clinical Notes 12-13-2023 to 11-06-2024 Telephone Encounter - Bia Cao MD - 11/06/2024 2:55 PM ESTTelephone Encounter - Bia Cao MD - 11/06/2024 2:55 PM Billy Christianson DPM - 10/30/2024 1:45 PM ESTPatient Instructions Note Date & Type Note Facility 11-06-2024 Telephone encounter Note Approvals with refills [facility] 11-06-2024 Miscellaneous Notes Approvals with refills documented in this encounter [facility] 10-30-2024 History of Present illness Narrative Images from the original note were not included. Subjective Patient ID: Angela Ruth is a 79 y.o. female who presents for Ingrown Toenail (Established pt presents today for concerns of possible ingrown nails, BL hallux. Denies infection.). HPI Patient last in clinic February 2021. Chief complaint: Thickened, discolored, ingrown and deformed toenails. Identifies multiple digits as problematic/symptomatic; bilateral great toes remain typically worse. Describes pressure discomfort with most shoes, impacting her ability to walk comfortably. Also complains of catching and snagging on clothing etc. Denies bleeding or drainage. Chronic toenail deformity of multiple years duration. Self-care is difficult, ineffective and not practical; increasing risk exposure. Family members unable to provide effective care. Palliative care measures have provided favorable transient symptom relief; last provided here in November of 2023 Risk factors: Medical comorbidities. Polypharmacy. ASA therapy. Mobility and flexibility restraints. Toenail deformity. Digital and/or shoe trauma and related complications. Presents with additional complaint: Symptomatic bump referring to styloid process of the right foot. Denies injury or trauma. Denies pop or snap sensation. Relates no recent change in activity or shoe gear; typically wears new balance shoes with Powerstep orthoses. Symptomatically over the past 1-2 months or so. Denies swelling, discoloration, dysesthesias or radicular pain. There has been no specific treatment to date, however patient indicates that ASO bracing in the past has been beneficial. Medications Current Outpatient Medications: alendronate (Fosamax) 70 MG tablet, Take 70 mg by mouth every 7 (seven) days, Disp: , Rfl: amitriptyline (Elavil) 50 MG tablet, Take 1 tablet (50 mg) by mouth at bedtime, Disp: 90 tablet, Rfl: 3 Ascorbic Acid (vitamin C) 1000 MG tablet, 1 (one) time each day at the same time., Disp: , Rfl: aspirin 81 MG EC tablet, Take 81 mg by mouth in the morning., Disp: , Rfl: atorvastatin (Lipitor) 40 MG tablet, take 1 tablet by mouth once daily, Disp: 90 tablet, Rfl: 3 buprenorphine (Butrans) 7.5 MCG/HR, Place 1 patch on the skin 1 (one) time per week., Disp: , Rfl: Calcium Carb-Cholecalciferol 600-20 MG-MCG tablet, Take 600 mg by mouth at bedtime., Disp: , Rfl: carvedilol (Coreg) 25 MG tablet, Take 1 tablet (25 mg) by mouth every 12 (twelve) hours, Disp: 200 tablet, Rfl: 3 cholecalciferol (Vitamin D-3) 25 MCG (1000 UT) tablet, 1,000 Units in the morning. Take before meals., Disp: , Rfl: escitalopram (Lexapro) 20 MG tablet, Take 1 tablet (20 mg) by mouth in the evening. Take with meals, Disp: 100 tablet, Rfl: 3 famotidine (Pepcid) 20 MG tablet, 1 (one) time each day at the same time., Disp: , Rfl: fenofibrate (Triglide) 160 MG tablet, Take 1 tablet (160 mg) by mouth in the morning., Disp: 100 tablet, Rfl: 3 ferrous sulfate 325 (65 Fe) MG tablet, Take 325 mg by mouth in the morning and 325 mg in the evening. Take with meals., Disp: , Rfl: fexofenadine (Ally Allergy) 180 MG tablet, 1 (one) time each day at the same time., Disp: , Rfl: hydrALAZINE (Apresoline) 100 MG tablet, Take 100 mg by mouth in the morning., Disp: , Rfl: hydrALAZINE (Apresoline) 50 MG tablet, Take 50 mg by mouth Only if bp is above 170, an hour after taking 100mg hydralazine., Disp: , Rfl: Lactobacillus (Florajen Women) capsule, as directed Orally, Disp: , Rfl: levothyroxine (Synthroid, Levoxyl) 150 MCG tablet, 1 tablet in the morning on an empty stomach Orally Wed thrwed, skip Wednesday, Disp: , Rfl: lisinopril-hydroCHLOROthiazide 20-12.5 MG tablet, Take 1 tablet by mouth in the morning., Disp: 100 tablet, Rfl: 3 MAGNESIUM PO, Take 500 mg by mouth in the morning., Disp: , Rfl: methocarbamol (Robaxin) 500 MG tablet, Take 1,000 mg by mouth at bedtime, Disp: , Rfl: multivitamin with minerals (Centrum) 9-200 mg-mcg tablet split tablet, multivitamin Multiple Vitamins, Disp: , Rfl: omeprazole (PriLOSEC) [address] capsule, Take 1 capsule (40 mg) by mouth in the morning., Disp: 100 capsule, Rfl: 3 oxybutynin XL (Ditropan-XL) 10 MG 24 hr tablet, take 1 tablet by mouth once daily, Disp: 90 tablet, Rfl: 3 zafirlukast (Accolate) 20 MG tablet, Take 1 tablet (20 mg) by mouth in the morning and 1 tablet (20 mg) before bedtime., Disp: 180 tablet, Rfl: 3 albuterol HFA 90 mcg/act inhaler, Inhale 2 puffs every 4 (four) hours., Disp: 18 g, Rfl: 11 elsnqtedhx-lnsgphbrmepxv-arpquds e 50-325-40 MG tablet, Take 1 tablet by mouth every 4 (four) hours if needed., Disp: , Rfl: fluticasone (Flonase) 50 MCG/ACT nasal spray, Administer 1-2 sprays into each nostril in the morning. Shake gently. Before first use, prime pump. After use, clean tip and replace cap.., Disp: 16 g, Rfl: 2 meclizine (Antivert) 25 MG tablet, Take 25 mg by mouth., Disp: , Rfl: naproxen (Naprosyn) 250 MG tablet, Take by mouth, Disp: , Rfl: NIFEdipine XL (Procardia XL) 60 MG 24 hr tablet, Take 60 mg by mouth in the morning., Disp: , Rfl: tiZANidine (Zanaflex) 4 MG tablet, take 0.5 to 2 tablets by mouth nightly, Disp: , Rfl: Ubrogepant (Ubrelvy) 100 MG tablet, 1 (one) time each day at the same time. (Patient not taking: Reported on 10/30/2024), Disp: , Rfl: Allergies Indomethacin, Lincomycin, Other, Sulfa antibiotics, Egg-derived products, Lincomycin hcl, Poultry meal, Sulfamethoxazole-trimethoprim, Aspartame, Augmentin [amoxicillin-pot clavulanate], Clavulanic acid, Clemizole, Influenza vaccines, Penicillins, and Wound dressing adhesive Past Surgical History Past Surgical History: Procedure Laterality Date ADENOIDECTOMY 1953 APPENDECTOMY 1965 BREAST BIOPSY x4 - [id number] CHOLECYSTECTOMY 2002 EYE SURGERY 01/21/2023 retinal repair [facility] HEMANGIOMA EXCISION 1946 from upper back HYSTERECTOMY 1984 KNEE SURGERY Bilateral arthroscopic knee surgery x3 (Rx2, Lx1) ([id number]) LAPAROTOMY OOPHERECTOMY 1985 LUMBAR DISCECTOMY 1989 partial LUMBAR DISCECTOMY 01/14/2017 Microdiscetomy L5-S1 LUMBAR DISCECTOMY 07/03/2021 L1-2 partial discectomy, L1-2, L2-3 cleaning out of stenosis in the spinal canal [facility] LUMBAR EPIDURAL INJECTION 12/20/2020 Dr Clifton RADIOFREQUENCY ABLATION 03/29/2020 lumbar ROTATOR CUFF REPAIR Right 2012 SPINAL FUSION 2010 L3-L5 TONSILLECTOMY 195 TRIGGER FINGER RELEASE Right 1995 release of Dequervan's tendon - R wrist TRIGGER FINGER RELEASE Right 05/16/2018 Family History Family History Problem Relation Name Age of Onset Hypertension Mother Chloe Baer Cancer Mother Chloe Baer COPD Father Dre Baer Cancer Father Dre Baer Arthritis Father Dre Baer Asthma Father Dre Baer Stroke Paternal Grandfather Tra Baer Diabetes Paternal Grandmother Sandra Baer Hearing loss Paternal Grandmother Sandra Baer Stroke Paternal Grandmother Sandra Baer Alcohol abuse Father's Brother Jesús Baer Cancer Mother's Sister Jannette Meganmariel Cancer Mother's Sister Nisa Dunham Cancer Mother's Sister Janet Mejia COPD Father's Brother Jluis Baer Early natural Mother's Sister Lorna Agee Mental illness Neg Hx Drug abuse Neg Hx Objective General Examination: GENERAL APPEARANCE: Alert and oriented. Wearing new balance shoes with OTC orthoses; presents ambulatory with cane assist. Vascular: DORSALIS PEDIS PULSE: bilaterally, 2/4 . POSTERIOR TIBIAL PULSE: bilaterally, 1/4 . TEMPERATURE GRADIENT: warm to warm. EDEMA: Unremarkable for ankle edema. CAPILLARY FILLING TIME(sec): capillary fill intact bilateral digits less than 3 secs . Neurologic: MUSCLE POWER: no focal deficits. TINELS SIGN: negative along the tarsal canal. SHARP SENSATION: tactile and soft touch sensation intact diminished over the digital and forefoot areas. SEMMES-KASH 5.07 MONOFILAMENT: Unable to effectively localize over the forefoot and digital areas. Dermatologic: SKIN FINDINGS:Intact. Skin turgor is good. HYPERTROPHIC LESION:No forefoot or digital keratotic pressure lesions are noted. NAIL PATHOLOGY: bilateral great toes: DSO/pincer toenail deformity: Toenail dystrophy, thickening, elongation, discoloration; the distal margins are deeply incurvated/cryptotic, keratotic, tender, slightly inflamed, without drainage. All remaining digits: Varying degrees of toenail dystrophy, elongation, brittleness, discoloration, pincer deformity, periungual hyperkeratotic debris, without drainage. INTERDIGITAL MACERATION: Clean, dry, non-inflamed. ULCER: no sign of ulceration or open wound . SKIN PATHOLOGY: texture, turgor, hair growth, within normal limits . Ankle / Foot: ANKLE: focused exam right foot: Moderate point tenderness over the peroneus brevis insertion/styloid process; without swelling, warmth or discoloration. Metatarsal-cuboid joint line non-tender. Peroneal sheath otherwise non-tender; functional 5/5. INSPECTION: stance assessment: Symmetrical, mildly pronated foot type bilateral. Relaxed hindfoot position is vertical to slightly everted. Stable medial column. RANGE OF MOTION: Demonstrates functional ankle, subtalar and MTP joint range of motion without pain. Radiology: Assessment/Plan Symptomatic onychodystrophy/mycosis multiple digits as described. Lumbar spinal stenosis with degenerative disc disease; with lumbar radiculopathy. Plan: conservative and palliative care measures are preferred and again indicated; expressing no interest in oral therapy. Topical therapy is difficult and not practical for her due to mobility and flexibility restraints. Hygiene and skin care measures discussed Procedure: Toenail debridement: Aseptic technique: Hand and power instrumentation: Onychodebridement in length and thickness, with curettage of any cryptotic margins, all periungual debris; providing effective symptom and pressure relief; reducing shoe and digital trauma. This note was created with the assistance of a speech recognition program. While intending to generate a timely document that accurately reflects the content of the visit, no guarantee can be provided that every grammatical or spelling mistake has been or will be identified or corrected. Thank you for your understanding. Santo Christianson DPM documented in this encounter [facility] 10-30-2024 Instructions Santo Christianson DPM - 10/30/2024 1:45 PM EST As noted documented in this encounter [facility] 10-06-2024 Telephone encounter Note Voicemail left for Angela at [phone]. Call back number given. 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 My note was forward to Dr. Hoover for review. At this time we recommend follow up and new imaging in 1 year. Rose Velasquez MSN, TUBE SIZER AND CUTTER OPERATOR, X RAY INSPECTOR Certified Nurse Practitioner [facility] Work Phone: 10-06-2024 Miscellaneous Notes Voicemail left for Angela at [phone]. Call back number given. 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 My note was forward to Dr. Hoover for review. At this time we recommend follow up and new imaging in 1 year. Rose Velasquez MSN, TUBE SIZER AND CUTTER OPERATOR, X RAY INSPECTOR Certified Nurse Practitioner General Call Caller : Angela Contact Reason for Call : Did you speak with Dr. Hoover regarding her most recent appt? Patient requesting return call ? Yes documented in this encounter [facility] 10-04-2024 Telephone encounter Note General Call Caller : Angela Contact Reason for Call : Did you speak with Dr. Hoover regarding her most recent appt? Patient requesting return call ? Yes [facility] 09-26-2024 Note HNO ID: [id number] Author: ROSE VELASQUEZ APRN.X RAY INSPECTOR Service: ? Author Type: Nurse Practitioner Type: Progress Notes Filed: 09/26/2024 15:27 Note Text: [facility] NEURO-ONCOLOGY OUTPATIENT CLINIC NOTE PURPOSE OF VISIT: Consultation requested by Dr. Hoover for an opinion regarding meningioma and my final recommendations will be communicated to the referring physician by way of shared medical record or letter to requesting physician via US mail. 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 Imaging originally done in workup of a fall. She did note worsening balance and worsening hearing loss on the Right. Of note, she follows with pain management and her medical history is significant for several spine surgeries now fused from L3-L5, s/p C2-3, C3-4 radiofrequency ablations INTERVAL HISTORY: 09/26/24 Here today with new imaging to review, accompanied by her granddaughter. She continues to have worsening balance. Her hearing is stable, worse on the Right. She was last seen by Dr. Hoover 04/04/24. She continues to follow with pain management, getting injections in her neck and back. She also has a pain patch, she wears on her back and takes Tylenol for headaches. Her granddaughter also notes worsening memory; not too concerning at this time. SOCIAL HISTORY: Social History Tobacco Use Smoking status: Never Smokeless tobacco: Never Substance Use Topics Alcohol use: No Drug use: Never No past medical history on file. No family history on file. Current Outpatient Medications Medication Sig hydrALAZINE (APRESOLINE) 100 mg tablet take 1 tablet by mouth twice a day then MAY TAKE ADDITIONAL (50 M... (REFER TO PRESCRIPTION NOTES). lisinopril-hydroCHLOROthiazide (ZESTORETIC) 20-12.5 mg per tablet Take 1 tablet by mouth every morning. oxybutynin ER (DITROPAN XL) 10 mg 24 hr tablet Take 10 mg by mouth. ferrous sulfate 325 mg (65 mg iron) tablet Take 325 mg by mouth. famotidine (PEPCID) 20 mg tablet Take 20 mg by mouth. alendronate (FOSAMAX) 70 mg tablet Take 70 mg by mouth one time a week. naproxen (NAPROSYN) 250 mg tablet Take by mouth as directed. therapeutic multivitamin (THERA VITAMIN) tablet Take 1 tablet by mouth. acetaminophen (TYLENOL) 500 mg tablet Take 500-1,000 [...] mg by mouth twice daily as needed. (Patient not taking: Reported on 04/04/2024) escitalopram oxalate (LEXAPRO) 20 mg tablet Take 20 mg by mouth once daily. losartan-hydrochlorothiazide (HYZAAR) 100-25 mg per tablet Take 1 tablet by mouth once daily. (Patient not taking: Reported on 04/04/2024) ezetimibe-simvastatin 10-40 mg (VYTORIN) 10-40 mg per tablet Take by mouth. (Patient not taking: Reported on 04/04/2024) esomeprazole (NEXIUM) 40 mg capsule Take 40 mg by mouth. Fenofibrate (LOFIBRA) 160 mg tablet Take 160 mg by mouth once daily. fexofenadine (ALLY) 180 mg tablet Take 180 mg by mouth once daily. levothyroxine (SYNTHROID) 150 mcg tablet 1 tablet once daily. meclizine (ANTIVERT) 25 mg tab Take 25 mg by mouth three times daily as needed. (Patient not taking: Reported on 04/04/2024) omeprazole (PRILOSEC) 20 mg capsule 20 mg once daily. acetaminophen-dichloralphenazone -isometheptene (MIDRIN) 65-100-325 mg per capsule 1 capsule four times daily as needed. cyclobenzaprine (FLEXERIL) 5 mg tablet Take 10 mg by mouth three times daily as needed. (Patient not taking: Reported on 04/04/2024) verapamil SR (CALAN SR, ISOPTIN SR) 120 mg CR tablet 1 tablet three times daily. (Patient not taking: Reported on 04/04/2024) zafirlukast (ACCOLATE) 20 mg tablet 1 tablet twice daily. (Patient not taking: Reported on 04/04/2024) metoclopramide HCl (REGLAN) 10 mg tablet Take 10 mg by mouth every 6 hours as needed. (Patient not taking: Reported on 04/04/2024) magnesium gluconate (MAGONATE) 27 mg (500 mg) tab Take 500 mg by mouth once daily. multivitamin tablet Take 1 tablet by mouth once daily. calcium carbonate-vitamin D3 600 mg(1,500mg) -800 unit tab Take 1 tablet by mouth once daily. topiramate (TOPAMAX) 100 mg tablet 300 mg once daily. 100 mg in the A.M and 200 at bedtime (Patient not taking: Reported on 04/04/2024) No current facility-administered medications for this visit. REVIEW OF SYSTEMS : Neurological : + Complaint of headaches, chronic + Complaint of tinnitus, when moving head side to side (more content not included)... [facility] 09-26-2024 History of Present illness Narrative Images from the original note were not included. [facility] NEURO-ONCOLOGY OUTPATIENT CLINIC NOTE PURPOSE OF VISIT: Consultation requested by Dr. Hoover for an opinion regarding meningioma and my final recommendations will be communicated to the referring physician by way of shared medical record or letter to requesting physician via US mail. 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 Imaging originally done in workup of a fall. She did note worsening balance and worsening hearing loss on the Right. Of note, she follows with pain management and her medical history is significant for several spine surgeries now fused from L3-L5, s/p C2-3, C3-4 radiofrequency ablations INTERVAL HISTORY: 09/26/24 Here today with new imaging to review, accompanied by her granddaughter. She continues to have worsening balance. Her hearing is stable, worse on the Right. She was last seen by Dr. Hoover 04/04/24. She continues to follow with pain management, getting injections in her neck and back. She also has a pain patch, she wears on her back and takes Tylenol for headaches. Her granddaughter also notes worsening memory; not too concerning at this time. SOCIAL HISTORY: Social History Tobacco Use Smoking status: Never Smokeless tobacco: Never Substance Use Topics Alcohol use: No Drug use: Never No past medical history on file. No family history on file. Current Outpatient Medications Medication Sig hydrALAZINE (APRESOLINE) 100 mg tablet take 1 tablet by mouth twice a day then MAY TAKE ADDITIONAL (50 M... (REFER TO PRESCRIPTION NOTES). lisinopril-hydroCHLOROthiazide (ZESTORETIC) 20-12.5 mg per tablet Take 1 tablet by mouth every morning. oxybutynin ER (DITROPAN XL) 10 mg 24 hr tablet Take 10 mg by mouth. ferrous sulfate 325 mg (65 mg iron) tablet Take 325 mg by mouth. famotidine (PEPCID) 20 mg tablet Take 20 mg by mouth. alendronate (FOSAMAX) 70 mg tablet Take 70 mg by mouth one time a week. naproxen (NAPROSYN) 250 mg tablet Take by mouth as directed. therapeutic multivitamin (THERA VITAMIN) tablet Take 1 tablet by mouth. acetaminophen (TYLENOL) 500 mg tablet Take 500-1,000 [...] mg by mouth twice daily as needed. (Patient not taking: Reported on 04/04/2024) escitalopram oxalate (LEXAPRO) 20 mg tablet Take 20 mg by mouth once daily. losartan-hydrochlorothiazide (HYZAAR) 100-25 mg per tablet Take 1 tablet by mouth once daily. (Patient not taking: Reported on 04/04/2024) ezetimibe-simvastatin 10-40 mg (VYTORIN) 10-40 mg per tablet Take by mouth. (Patient not taking: Reported on 04/04/2024) esomeprazole (NEXIUM) 40 mg capsule Take 40 mg by mouth. Fenofibrate (LOFIBRA) 160 mg tablet Take 160 mg by mouth once daily. fexofenadine (ALLY) 180 mg tablet Take 180 mg by mouth once daily. levothyroxine (SYNTHROID) 150 mcg tablet 1 tablet once daily. meclizine (ANTIVERT) 25 mg tab Take 25 mg by mouth three times daily as needed. (Patient not taking: Reported on 04/04/2024) omeprazole (PRILOSEC) 20 mg capsule 20 mg once daily. acetaminophen-dichloralphenazone -isometheptene (MIDRIN) 65-100-325 mg per capsule 1 capsule four times daily as needed. cyclobenzaprine (FLEXERIL) 5 mg tablet Take 10 mg by mouth three times daily as needed. (Patient not taking: Reported on 04/04/2024) verapamil SR (CALAN SR, ISOPTIN SR) 120 mg CR tablet 1 tablet three times daily. (Patient not taking: Reported on 04/04/2024) zafirlukast (ACCOLATE) 20 mg tablet 1 tablet twice daily. (Patient not taking: Reported on 04/04/2024) metoclopramide HCl (REGLAN) 10 mg tablet Take 10 mg by mouth every 6 hours as needed. (Patient not taking: Reported on 04/04/2024) magnesium gluconate (MAGONATE) 27 mg (500 mg) tab Take 500 mg by mouth once daily. multivitamin tablet Take 1 tablet by mouth once daily. calcium carbonate-vitamin D3 600 mg(1,500mg) -800 unit tab Take 1 tablet by mouth once daily. topiramate (TOPAMAX) 100 mg tablet 300 mg once daily. 100 mg in the A.M and 200 at bedtime (Patient not taking: Reported on 04/04/2024) No current facility-administered medications for this visit. REVIEW OF SYSTEMS : Neurological : + Complaint of headaches, chronic + Complaint of tinnitus, when moving head side to side + Decreased hearing, Right worse than Left No complaint of diplopia No complaints of blurred vision. 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 + Hypothyroidism Skin: + BCC Eyes: + Cataracts ENMT: No recent ear infection, nasal congestion, mouth sores or sore throat. CV: No chest pain, palpitations or leg swelling; + HTN + HLD Respiratory: No SOB, wheezing or recent cough; + Asthma Gastrointestinal: No nausea, vomiting, dysphagia or abdominal pain; + GERD Musculoskeletal: No complaint of arm/leg weakness; + Osteoporosis; + Arthritis; + Unstable gait at times; + Fibromyalgia Psychiatric: No history of hallucinations, depression, or anxiety Objective PHYSICAL EXAMINATION: BP 143/81 Pulse 91 Wt 67 kg (147 lb 11.3 oz) SpO2 96% BMI 26.17 kg/m General appearance: Well appearing, alert, in no acute distress Skin: Skin color, texture, turgor normal, no suspicious rashes or lesions Oropharynx: Lips, mucosa, and tongue normal, teeth and gums normal Extremities: No deformities, edema, skin discoloration, clubbing or cyanosis. NEUROLOGICAL EXAM: Higher integrative functions: Oriented to person, place & time. Attention Span and Concentration: Good. Language: Good comprehension. Speech clear and coherent Fund of Knowledge: Good. 2nd CN: Full visual montgomery. 3rd,4th,6th CN: Pupils (=), round, react to light, full extraocular movements. 5th CN: No decrease in facial sensation 7th CN: Facial muscles symmetric and strong. 8th CN: Unable to hear finger rub on the Right 9th CN: Gag reflex not tested 10th CN: Spontaneous palate movement, full and symmetric. 11th CN: Full strength in shoulder shrug. 12th CN: Tongue protrusion full and midline. Sensation: No decrease in sensation in upper or lower limbs to touch. Musculoskeletal: Gait is steady; ambulates with cane Motor: 5/5, R=L, UE=LE. Normal muscle tone without atrophy in all limbs. Coordination: Rapid alternating movements fast and smooth all limbs. IMAGING STUDIES: MRI BRAIN WO/W IVCON MRI Report MRI BRAIN WO/W IVCON Exam End: 09/26/2024 12:29 PM (Final result) Narrative: * * *Final Report* * * DATE OF EXAM: Sep 26 2024 12:29PM [facility] [id number] - MRI BRAIN WO/W IVCON / PROCEDURE REASON: Benign neoplasm of meninges (HCC) * * * * Physician Interpretation * * * * EXAMINATION: MRI BRAIN WO/W IVCON CLINICAL HISTORY: Meningioma TECHNIQUE: Routine brain MRI protocol without and with contrast including diffusion images. MQ: [id number] Contrast: 14 mL mL Dotarem IV COMPARISON: Outside MR 03/02/2024 RESULT: Acute Change: There is no evidence of restricted diffusion to suggest an acute infarct. Hemorrhage: No evidence of prior parenchymal hemorrhage on the susceptibility weighted images. Mass Lesion/ Mass Effect: Stable size of a 12 x 9 x 12 mm AP by TR by CC dural based extra-axial mass along the RIGHT petrous ridge (series 10 image 114) compared to 03/02/2024. Chronic Change: Scattered patchy areas of increased T2 and FLAIR signal are present in the supratentorial white matter which is a nonspecific finding but likely represents mild chronic microvascular ischemia. Parenchyma: There is mild generalized parenchymal volume loss. The brain parenchyma is otherwise within normal limits of signal intensity and morphology. Ventricles: Normal caliber and morphology. Skull Base: Hypothalamic and pituitary region are grossly normal. Craniocervical junction is normal. No significant marrow replacement process. Vasculature: Major intracranial arterial structures, and dural venous sinuses show typical flow void, suggesting patency by spin echo criteria. Other: Hyperostosis frontalis interna. Mild mucosal thickening RIGHT maxillary sinus. Mastoid air cells are clear. Bilateral lens replacements. The orbits and extracranial soft tissues otherwise unremarkable. Impression: IMPRESSION: Stable size of a RIGHT petrous ridge presumed meningioma compared to 03/02/2024. Canvas Repairer: [facility] Transcribe Date/Time: Sep 26 2024 2:10P Dictated by : MAUREEN PEARL MD This examination was interpreted and the report reviewed and electronically signed by: MAUREEN PEARL MD on Sep 26 2024 2:14PM EST KPS SCORE: 70 MEDICAL DECISION MAKING Assessment & Plan 1. Right CPA mass, observation - MRI brain today appears stable - Images reviewed with her - Recommend follow up appointment and new MRI brain in 1 year - Reviewed signs and symptoms that would prompt sooner evaluation - She has our contact information and was advised to call if new symptoms, questions or concerns arise prior to next scheduled visit. - All questions were answered. Rose Velasquez APRN.X RAY INSPECTOR Certified Nurse Practitioner cc: Mandi Hoover MD - Epic documented in this encounter [facility] 09-26-2024 History of Present illness Narrative Radiology Service Progress Note DATE OF SERVICE: September 26, 2024 TIME: 11:27 AM PATIENT WEIGHT: 150LBS PATIENT IDENTITY VERIFICATION COMPLETED USING TWO (2) STANDARD IDENTIFIERS: Name and Date of confirmed by patient verbally. FALL SCREENING: Has the patient had 2 falls in the last year or 1 fall with injury or currently using an Ambulatory Assistive Device (Walker, Cane, Wheelchair, Crutches, etc.)? Yes, Patient High Risk for Falls What interventions were put in place to prevent falls during this visit? Instructed Patient to Call for Help if Needed and Offered Assistance with Transfers/Clothing PATIENT GENDER DATA: Female. status: : No status: NO. ALLERGIES: Reviewed and unchanged CONTRAST ALLERGY: No EXAM: MRI - CONTRAST TYPE: GROUP II IV SITE: Ambulatory: A peripheral IV was started in the Right antecubital site with a Angio cath: 22 gauge. and A Saline lock was inserted per protocol IV SITE APPEARANCE: Clean,Dry and Intact SIGNATURE: Jessica Howell RN PATIENT NAME: Angela Ruth DATE: September 26, 2024 TIME: 11:27 AM documented in this encounter [facility] 09-26-2024 Note HNO ID: [id number] Author: JESSICA HOWELL RN Service: Nursing Author Type: Registered Nurse Type: Progress Notes Filed: 09/26/2024 11:30 Note Text: Radiology Service Progress Note DATE OF SERVICE: September 26, 2024 TIME: 11:27 AM PATIENT WEIGHT: 150LBS PATIENT IDENTITY VERIFICATION COMPLETED USING TWO (2) STANDARD IDENTIFIERS: Name and Date of confirmed by patient verbally. FALL SCREENING: Has the patient had 2 falls in the last year or 1 fall with injury or currently using an Ambulatory Assistive Device (Walker, Cane, Wheelchair, Crutches, etc.)? Yes, Patient High Risk for Falls What interventions were put in place to prevent falls during this visit? Instructed Patient to Call for Help if Needed and Offered Assistance with Transfers/Clothing PATIENT GENDER DATA: Female. status: : No status: NO. ALLERGIES: Reviewed and unchanged CONTRAST ALLERGY: No EXAM: MRI - CONTRAST TYPE: GROUP II IV SITE: Ambulatory: A peripheral IV was started in the Right antecubital site with a Angio cath: 22 gauge. and A Saline lock was inserted per protocol IV SITE APPEARANCE: Clean,Dry and Intact SIGNATURE: Jessica Howell RN PATIENT NAME: Angela Ruth DATE: September 26, 2024 TIME: 11:27 AM [facility] 08-29-2024 History of Present illness Narrative Images from the original note were not included. [address] [place] [address] [facility] [id number] Patient: Angela Ruth Date of : 1945 [...] (benign paroxysmal positional vertigo) Brain tumor (benign) ([facility]) Breast disorder 4 biopsies Bronchitis 01/01/2017 Cancer ([facility]) Basal cell Carpal tunnel syndrome Cataract Chronic [...] 07/07/2018 Performed by Lalit Leach MD at [facility] ENDOSCOPY COSMETIC SURGERY 1984 DISCECTOMY 1989 Partial L4-5 EGD 2001 EYE SURGERY 2014 FOOT SURGERY 2009 Reattachment of tendon left foot with bone graft HIP SURGERY 2003 Excision of bursa left hip HYSTERECTOMY 1984 INJECTION BLOCK EPIDURAL STEROID LUMBAR/SACRAL Left L 5,1 NR Left 12/20/2020 Performed by Shubham Clifton MD at [facility] INJE[facility] BLOCK NERVE MEDIAL BRANCH right C 4/5,5/6 Right 05/22/2022 Performed by Shubham Clifton MD at [facility] IN[facility] BLOCK NERVE MEDIAL BRANCH right C 4/5,5/6 Right 04/17/2022 Performed by Shubham Clifton MD at [facility] IN[facility] CAUDAL EPIDURAL WITH CATHETER, STEROID N/A 03/07/2018 Performed by Shubham Clifton MD at [facility] IN[facility] LARGE JOINT BURSA: bilat hip Bilateral 12/10/2017 Performed by Shubham Clifton MD at [facility] MEDIAL BRANCH NERVE BLOCK Bilateral L 4/5, 5/1 Bilateral 06/28/2017 Performed by Shubham Clifton MD at [facility] MEDIAL BRANCH NERVE BLOCK Right L 2/3, 3/4 Right 12/08/2019 Performed by Shubham Clifton MD at [facility] MEDIAL BRANCH NERVE BLOCK RIGHT L23 34 Right 01/19/2020 Performed by Shubham Clifton MD at [facility] INJECTION SI JOINT Bilateral 04/09/2017 Performed by Shubham Clifton MD at [facility] INJECTION SI JOINT Bilateral SI Joint Bilateral 05/31/2020 Performed by Shubham Clifton MD at [facility] INJECTION SI JOINT Left SI JOint Left 01/06/2019 Performed by Shubham Clifton MD at [facility] INJECTION SI JOINT Right SI Joint Right 06/09/2019 Performed by Shubham Clifton MD at [facility] SPINE TRANSFORAMINAL Left L 4, 5 NR Left 09/24/2017 Performed by Shubham Clifton MD at [facility] SPINE TRANSFORAMINAL Left L 5,1 Nroot Left 01/08/2023 Performed by Shubham Clifton MD at [facility] SPINE TRANSFORAMINAL Right L 5,1 Nroot Right 11/27/2022 Performed by Shubham Clifton MD at [facility] STEROID EPI 1 WITH SEDATION Left 5,1 NR Left 05/08/2019 Performed by Shubham Clifton MD at [facility] KNEE ARTHROSCOPY 2013 KNEE SURGERY 2010 2013 Arthroscopy bilateral/repair meniscus right X2, left X1 LAMINECTOMY LUMBAR FORAMENOTOMY MULTI LEVEL L1-2 RIGHT/L2-3 BILATERAL/LUMBAR DRAIN INSERTION N/A 07/03/2021 Performed by Ileana Cortes MD at [facility] LAPAROTOMY OOPHERECTOMY Bilateral 1984 LUMBAR DISCECTOMY LUMBAR FUSION 2010 L3-5 LUMBAR LAMINECTOMY MICRO LUMBAR DISCECTOMY L5-S1/ FORAMINOTOMY L5-S1 Left 01/14/2017 Performed by Ileana Cortes MD at [facility] OOPHORECTOMY 1982 OTHER SURGICAL HISTORY Knee Arthroscopy With Medial Meniscus Repair OTHER SURGICAL HISTORY Spinal Diskectomy RADIO FREQUENCY ABLATION Left L 4/5, 5/1 Left 12/02/2018 Performed by Shubham Clifton MD at [facility] RADIO FREQUENCY ABLATION Left L 4/5, 5/1 Left 07/30/2017 Performed by Shubham Clifton MD at [facility] RADIO FREQUENCY ABLATION Left SI joint Left 03/31/2019 Performed by Shubham Clifton MD at [facility] RADIO FREQUENCY ABLATION Right L2/3, 3/4 Right 03/29/2020 Performed by Shubham Clifton MD at [facility] RADIOFREQUENCY ABLATION SPINAL Left Si joint Left 05/07/2017 Performed by Shubham Clifton MD at [facility] RADIOFREQUENCY ABLATION SPINAL Right C 4/5,5/6 Right 06/26/2022 Performed by Shubham Clifton MD at [facility] RADIOFREQUENCY ABLATION SPINAL RIGHT SI JOINT Right 05/21/2017 Performed by Shubham Clifton MD at [facility] RELEASE CARPAL TUNNEL Left 11/04/2021 Performed by Ileana Cortes MD at [facility] SHOULDER SURGERY 2011 Right rotator cuff [...] mg total) by mouth in the morning. rklwbmn-sphnqyvwenadx-fovrutnh (EXCEDRIN MIGRAINE) 250-250-65 mg per tablet Take [...] EVENING WITH MEALS. 60 tablet 2 fexofenadine (ALLY) 180 mg tablet Take 1 tablet (180 [...] orders for this visit: Urge incontinence - [facility] Physicians Genito-Urinary Surgeons - [facility] [place] - POCT Urinalysis Auto, W/O Microscopy - Measure post void residual Problem List Genitourinary Urge incontinence Overview 08/29/2024: Urge incontinence. Multifactorial including her back issues, constipation, caffeine consumption. Recommended decreasing caffeine as well as addressing constipation with [id number]-lnqmvka agents. If no improvement can add beta [...] for your understanding. documented in this encounter [facility] 08-22-2024 Miscellaneous Notes Medication Refill request: Medication Name and Strength:FeroSuL 325 mg (65 mg iron) tablet Current dose & Frequency: take 1 tablet by mouth every morning and 1 tablet every evening with meals 30 day or 90 day supply preferred: Pharmacy Name: [address] [place] [id number] [address] Hours: Not open 24 hours Request was made by: Patient documented in this encounter [facility] 08-22-2024 Telephone encounter Note Medication Refill request: Medication Name and Strength:FeroSuL 325 mg (65 mg iron) tablet Current dose & Frequency: take 1 tablet by mouth every morning and 1 tablet every evening with meals 30 day or 90 day supply preferred: Pharmacy Name: [address] [place] [id number] [address] Hours: Not open 24 hours Request was made by: Patient [facility] 08-14-2024 History of Present illness Narrative Images from the original note were not included. , Angela Ruth is a 79 y.o. female presents with chief complaint of congestion HPI: HPI History of Present Illness The patient is a 79-year-old female who presents for evaluation of her allergies. She reports experiencing aches, which began yesterday. She has not undergone a COVID-19 test. She does not report any chills. She mentions that prednisone has been beneficial for her in the past. She does not currently have an head host/hostess. SUBJECTIVE: MEDICATIONS: Current Outpatient Medications Medication Instructions albuterol HFA 90 mcg/act inhaler 2 puffs, Inhalation, Every 4 hours alendronate (FOSAMAX) 70 mg, Oral, Every 7 days amitriptyline (ELAVIL) 50 mg, Oral, Nightly Ascorbic Acid (vitamin C) 1000 MG tablet Every 24 hours aspirin 81 mg, Oral, Daily RT atorvastatin (LIPITOR) 40 mg, Oral, Daily buprenorphine (Butrans) 7.5 MCG/HR 1 patch, Transdermal, Weekly telshonewp-dtkjuafzicvlq-yxdegps e 50-325-40 MG tablet 1 tablet, Oral, Every 4 hours PRN Calcium Carb-Cholecalciferol 600-20 MG-MCG tablet 600 mg, Oral, Nightly carvedilol (COREG) 25 mg, Oral, Every 12 hours cholecalciferol (VITAMIN D-3) 1,000 Units, Daily before breakfast escitalopram (LEXAPRO) 20 mg, Oral, Daily with evening meal famotidine (Pepcid) 20 MG tablet Every 24 hours fenofibrate (TRIGLIDE) 160 mg, Oral, Daily ferrous sulfate 325 mg, Oral, 2 times daily with meals fexofenadine (Ally Allergy) 180 MG tablet Every 24 hours fluticasone (Flonase) 50 MCG/ACT nasal spray 1-2 sprays, Each Nostril, Daily, Shake gently. Before first use, prime pump. After use, clean tip and replace cap. hydrALAZINE (APRESOLINE) 100 mg, Oral, Every morning hydrALAZINE (APRESOLINE) 50 mg, Oral, Only if bp is above 170, an hour after taking 100mg hydralazine. Lactobacillus (Florajen Women) capsule as directed Orally levothyroxine (Synthroid, Levoxyl) 150 MCG tablet 1 tablet in the morning on an empty stomach Orally Mon thru Wed, skip Wednesday lisinopril-hydroCHLOROthiazide 20-12.5 MG tablet 1 tablet, Oral, Daily RT MAGNESIUM PO 500 mg, Oral, Daily RT meclizine (ANTIVERT) 25 mg, Oral methocarbamol (ROBAXIN) 1,000 mg, Oral, Nightly multivitamin with minerals (Centrum) 9-200 mg-mcg tablet split tablet multivitamin Multiple Vitamins naproxen (Naprosyn) 250 MG tablet Oral NIFEdipine XL (PROCARDIA XL) 60 mg, Oral, Every morning omeprazole (PRILOSEC) 40 mg, Oral, Every morning oxybutynin XL (DITROPAN-XL) 10 mg, Oral, Daily tiZANidine (Zanaflex) 4 MG tablet take 0.5 to 2 tablets by mouth nightly Ubrogepant (Ubrelvy) 100 MG tablet Every 24 hours zafirlukast (ACCOLATE) 20 mg, Oral, 2 times daily I have reviewed and reconciled the history and medication list with the patient today. REVIEW OF SYMPTOMS: Review of Systems Constitutional: Negative for chills, fatigue and fever. HENT: Positive for congestion, sore throat and trouble swallowing. Respiratory: Positive for cough. Negative for shortness of breath. OBJECTIVE: Visit Vitals BP 148/88 Pulse 88 Ht 5' 3 Wt 147 lb 12.8 oz SpO2 95% BMI 26.18 kg/m Smoking Status Never BSA 1.73 m Physical Exam Constitutional: Appearance: Normal appearance. She is normal weight. HENT: Head: Normocephalic and atraumatic. Right Ear: Tympanic membrane and ear canal normal. Left Ear: Tympanic membrane and ear canal normal. Nose: Congestion and rhinorrhea present. Mouth/Throat: Mouth: Mucous membranes are moist. Pharynx: Oropharyngeal exudate present. Eyes: Pupils: Pupils are equal, round, and reactive to light. Cardiovascular: Rate and Rhythm: Normal rate and regular rhythm. Heart sounds: No murmur heard. Pulmonary: Effort: Pulmonary effort is normal. Breath sounds: Normal breath sounds. No wheezing or rhonchi. Musculoskeletal: General: No swelling. Cervical back: Normal range of motion and neck supple. Right lower leg: No edema. Left lower leg: No edema. Lymphadenopathy: Cervical: No cervical adenopathy. Skin: General: Skin is warm and dry. Findings: No rash. Neurological: Mental Status: She is oriented to person, place, and time. Sensory: No sensory deficit. Gait: Gait normal. Psychiatric: Mood and Affect: Mood normal. Thought Content: Thought content normal. Judgment: Judgment normal. ASSESSMENT AND PLAN: Assessment/Plan Problem List Items Addressed This Visit None Visit Diagnoses Acute bronchitis, unspecified organism - Primary Relevant Medications doxycycline (Vibra-Tabs) 100 MG tablet predniSONE (Deltasone) 20 MG tablet Seasonal allergic rhinitis due to pollen Assessment & Plan 1. Allergies. Her allergies appear to be intensifying. A prescription for doxycycline and prednisone was provided. She does not currently have an head host/hostess but is open to seeing one. A COVID-19 test was conducted today, which returned negative. She is advised to stay hydrated. If her condition deteriorates, a repeat COVID-19 test will be necessary. documented in this encounter [facility] 08-08-2024 History of Present illness Narrative Angela Ruth is a 79 y.o. female presents with chief complaint of Follow-up (Patient presents today for 4 month follow up. ) HPI: HPI History of Present Illness The patient is a 79-year-old female who presents for evaluation of hoarseness. She reports a persistent hoarseness in her voice, uncertain if it's related to her vocal cords or another issue. She also mentions significant nasal drainage. Her appetite remains normal. SUBJECTIVE: MEDICATIONS: Current Outpatient Medications Medication Instructions albuterol HFA 90 mcg/act inhaler 2 puffs, Inhalation, Every 4 hours alendronate (FOSAMAX) 70 mg, Oral, Every 7 days amitriptyline (ELAVIL) 50 mg, Oral, Nightly Ascorbic Acid (vitamin C) 1000 MG tablet Every 24 hours aspirin 81 mg, Oral, Daily RT atorvastatin (LIPITOR) 40 mg, Oral, Daily buprenorphine (Butrans) 7.5 MCG/HR 1 patch, Transdermal, Weekly sdkjntmbhr-vavvbftozrjfu-ynoxcuk e 50-325-40 MG tablet 1 tablet, Oral, Every 4 hours PRN Calcium Carb-Cholecalciferol 600-20 MG-MCG tablet 600 mg, Oral, Nightly carvedilol (COREG) 25 mg, Oral, Every 12 hours cholecalciferol (VITAMIN D-3) 1,000 Units, Daily before breakfast Cyanocobalamin 1,000 mcg, Sublingual, Daily RT escitalopram (LEXAPRO) 20 mg, Oral, Daily with evening meal famotidine (Pepcid) 20 MG tablet Every 24 hours fenofibrate (TRIGLIDE) 160 mg, Oral, Daily ferrous sulfate 325 mg, Oral, 2 times daily with meals fexofenadine (Ally Allergy) 180 MG tablet Every 24 hours fluticasone (Flonase) 50 MCG/ACT nasal spray 1-2 sprays, Each Nostril, Daily, Shake gently. Before first use, prime pump. After use, clean tip and replace cap. hydrALAZINE (APRESOLINE) 100 mg, Oral, Every morning hydrALAZINE (APRESOLINE) 50 mg, Oral, Only if bp is above 170, an hour after taking 100mg hydralazine. Lactobacillus (Florajen Women) capsule as directed Orally levothyroxine (Synthroid, Levoxyl) 150 MCG tablet 1 tablet in the morning on an empty stomach Orally Wed thru Wed, skip Wednesday lisinopril-hydroCHLOROthiazide 20-12.5 MG tablet 1 tablet, Oral, Daily RT MAGNESIUM PO 500 mg, Oral, Daily RT meclizine (ANTIVERT) 25 mg, Oral methocarbamol (ROBAXIN) 1,000 mg, Oral, Nightly multivitamin with minerals (Centrum) 9-200 mg-mcg tablet split tablet multivitamin Multiple Vitamins naproxen (Naprosyn) 250 MG tablet Oral NIFEdipine XL (PROCARDIA XL) 60 mg, Oral, Every morning omeprazole (PRILOSEC) 40 mg, Oral, Every morning oxybutynin XL (DITROPAN-XL) 10 mg, Oral, Daily tiZANidine (Zanaflex) 4 MG tablet take 0.5 to 2 tablets by mouth nightly Ubrogepant (Ubrelvy) 100 MG tablet Every 24 hours zafirlukast (ACCOLATE) 20 mg, Oral, 2 times daily ALLERGIES: Allergies Allergen Reactions Indomethacin Unknown fainting Lincomycin Anaphylaxis and Rash Other Swelling Sulfa Antibiotics Hives Egg-Derived Products Swelling and Unknown Says about 1964? and only one arm affected. No rash, hives, or trouble breathing Lincomycin Hcl Unknown Poultry Meal Sulfamethoxazole-Trimethoprim Hives Aspartame Unknown migraines Augmentin [Amoxicillin-Pot Clavulanate] Rash Clavulanic Acid Rash Clemizole Rash Influenza Vaccines Rash Grown on eggs Penicillins Rash Wound Dressing Adhesive Rash SURGICAL HISTORY: Past Surgical History: Procedure Laterality Date ADENOIDECTOMY 1953 APPENDECTOMY 1965 BREAST BIOPSY x4 - [id number] CHOLECYSTECTOMY 2002 EYE SURGERY 01/21/2023 retinal repair [facility] HEMANGIOMA EXCISION 1946 from upper back HYSTERECTOMY 1984 KNEE SURGERY Bilateral arthroscopic knee surgery x3 (Rx2, Lx1) ([id number]) LAPAROTOMY OOPHERECTOMY 1985 LUMBAR DISCECTOMY 1989 partial LUMBAR DISCECTOMY 01/14/2017 Microdiscetomy L5-S1 LUMBAR DISCECTOMY 07/03/2021 L1-2 partial discectomy, L1-2, L2-3 cleaning out of stenosis in the spinal canal [facility] LUMBAR EPIDURAL INJECTION 12/20/2020 Dr Clifton RADIOFREQUENCY ABLATION 03/29/2020 lumbar ROTATOR CUFF REPAIR Right 2012 SPINAL FUSION 2010 L3-L5 TONSILLECTOMY 1953 TRIGGER FINGER RELEASE Right 1995 release of Dequervan's tendon - R wrist TRIGGER FINGER RELEASE Right 05/16/2018 FAMILY HISTORY: Family History Problem Relation Name Age of Onset Hypertension Mother Chloe Baer Cancer Mother Chloe Baer COPD Father Dre Baer Cancer Father Dre Baer Arthritis Father Dre Baer Asthma Father Dre Baer Stroke Paternal Grandfather Tra Baer Diabetes Paternal Grandmother Sandra Baer Hearing loss Paternal Grandmother Sandra Baer Stroke Paternal Grandmother Sandra Baer Alcohol abuse Father's Brother Jesús Baer Cancer Mother's Sister Jannette Nascimento Cancer Mother's Sister Nisa Dunham Cancer Mother's Sister Janet Mejia COPD Father's Brother Jluis Baer Early natural Mother's Sister Lorna Agee Mental illness Neg Hx Drug abuse Neg Hx SOCIAL HISTORY: Social History Tobacco Use Smoking status: Never Smokeless tobacco: Never Tobacco comments: Second hand smoke from Father Vaping Use Vaping status: Never Used Substance Use Topics Alcohol use: Not Currently Comment: caffeine: occasional Drug use: Never Depression: At risk (07/13/2024) Received from [facility] PHQ-2 Total Score: 3 REVIEW OF SYMPTOMS: Review of Systems Respiratory: Negative. Cardiovascular: Negative. OBJECTIVE: Visit Vitals BP 136/84 (BP Location: Right arm, Patient Position: Sitting, BP Cuff Size: Adult) Pulse 77 Resp 20 Ht 5' 3 Wt 149 lb 3.2 oz SpO2 97% BMI 26.43 kg/m Smoking Status Never BSA 1.73 m Physical Exam Constitutional: Appearance: Normal appearance. She is normal weight. HENT: Head: Normocephalic and atraumatic. Nose: Nose normal. Mouth/Throat: Mouth: Mucous membranes are moist. Eyes: Pupils: Pupils are equal, round, and reactive to light. Cardiovascular: Rate and Rhythm: Normal rate and regular rhythm. Heart sounds: No murmur heard. Pulmonary: Effort: Pulmonary effort is normal. Breath sounds: Normal breath sounds. No wheezing or rhonchi. Musculoskeletal: General: No swelling. Cervical back: Normal range of motion and neck supple. Right lower leg: No edema. Left lower leg: No edema. Skin: General: Skin is warm and dry. Findings: No rash. Neurological: Mental Status: She is alert and oriented to person, place, and time. Sensory: No sensory deficit. Gait: Gait normal. Psychiatric: Mood and Affect: Mood normal. Thought Content: Thought content normal. Judgment: Judgment normal. ASSESSMENT AND PLAN: Assessment/Plan Problem List Items Addressed This Visit Primary insomnia Relevant Medications amitriptyline (Elavil) 50 MG tablet Gastroesophageal reflux disease without esophagitis Relevant Medications omeprazole (PriLOSEC) [address] rodriguez Other Visit Diagnoses Hoarse - Primary Purulent postnasal drainage Assessment & Plan 1. Hoarseness. The hoarseness may be due to drainage down the back of her throat, heartburn, or vocal cord nodules. She reports having drainage from her nose, and steroid nose sprays have helped in the past. Flonase was recommended for use. If the Flonase does not help, a referral to an ENT specialist will be considered to examine her vocal cords. 2. Medication Management. Prescriptions for omeprazole 20 mg and amitriptyline 25 mg were renewed and sent to [facility] pharmacy. Follow-up The patient will follow up in 4 months. documented in this encounter [facility] 07-10-2024 History of Present illness Narrative Angela Ruth is a 79 y.o. female presents with chief complaint of UTI (Patient presents today for urgency, frequency, burning with urination. Patient states that it has been ongoing for 10 days. Seen Traci last Wednesday, the and urine results came back normal. Patient has been taking the cipro that Traci prescribed and is not any better.) HPI: HPI History of Present Illness The patient is a 79-year-old female who presents for evaluation of urinary urgency. She reports experiencing urinary urgency accompanied by pain upon standing, which has been ongoing for several days. She also mentions feeling pressure on her bladder. She has been taking Ditropan, which initially provided relief but currently seems less effective. She has also been prescribed Cipro. Her diet includes one bottle of Pepsi every two days and two to three glasses of unsweetened iced tea daily. She does not consume acidic foods such as tomatoes or lemonade. She has not previously tried MiraLAX. She consulted with Dr. Romano, a urologist in [place], some time ago but has not sought urological advice recently. She does not report any itching in the groin area. She also mentions experiencing pain higher up on the right side of her back than usual, which has been present for the same duration as her urinary symptoms. She has not experienced any recent falls or rib injuries. She occasionally takes Tylenol for pain relief. Supplemental Information: She had a bone density test ordered by Dr. Morales. She is on Fosamax 70 mg a week for her osteoporosis, which was increased from 35 mg to 70 mg. SUBJECTIVE: MEDICATIONS: Current Outpatient Medications Medication Instructions albuterol HFA 90 mcg/act inhaler 2 puffs, Inhalation, Every 4 hours alendronate (FOSAMAX) 70 mg, Oral, Every 7 days amitriptyline (ELAVIL) 50 mg, Oral, Nightly Ascorbic Acid (vitamin C) 1000 MG tablet Every 24 hours aspirin 81 mg, Oral, Daily RT atorvastatin (LIPITOR) 40 mg, Oral, Daily buprenorphine (Butrans) 7.5 MCG/HR 1 patch, Transdermal, Weekly edszchxrlx-ecekfklrfmvkl-qwspckt e 50-325-40 MG tablet 1 tablet, Oral, Every 4 hours PRN Calcium Carb-Cholecalciferol 600-20 MG-MCG tablet 600 mg, Oral, Nightly carvedilol (COREG) 25 mg, Oral, Every 12 hours cholecalciferol (VITAMIN D-3) 1,000 Units, Daily before breakfast ciprofloxacin (CIPRO) 500 mg, Oral, 2 times daily Cyanocobalamin 1,000 mcg, Sublingual, Daily RT escitalopram (LEXAPRO) 20 mg, Oral, Daily with evening meal famotidine (Pepcid) 20 MG tablet Every 24 hours fenofibrate (TRIGLIDE) 160 mg, Oral, Daily ferrous sulfate 325 mg, Oral, 2 times daily with meals fexofenadine (Ally Allergy) 180 MG tablet Every 24 hours fluticasone (Flonase) 50 MCG/ACT nasal spray 1-2 sprays, Each Nostril, Daily, Shake gently. Before first use, prime pump. After use, clean tip and replace cap. hydrALAZINE (APRESOLINE) 100 mg, Oral, Every morning hydrALAZINE (APRESOLINE) 50 mg, Oral, Only if bp is above 170, an hour after taking 100mg hydralazine. Lactobacillus (Florajen Women) capsule as directed Orally levothyroxine (Synthroid, Levoxyl) 150 MCG tablet 1 tablet in the morning on an empty stomach Orally Wed thru Wed, skip Wednesday lisinopril-hydroCHLOROthiazide 20-12.5 MG tablet 1 tablet, Oral, Daily RT MAGNESIUM PO 500 mg, Oral, Daily RT meclizine (ANTIVERT) 25 mg, Oral methocarbamol (ROBAXIN) 1,000 mg, Oral, Nightly multivitamin with minerals (Centrum) 9-200 mg-mcg tablet split tablet multivitamin Multiple Vitamins naproxen (Naprosyn) 250 MG tablet Oral NIFEdipine XL (PROCARDIA XL) 60 mg, Oral, Every morning omeprazole (PRILOSEC) 40 mg, Oral, Every morning oxybutynin XL (DITROPAN-XL) 10 mg, Oral, Daily tiZANidine (Zanaflex) 4 MG tablet take 0.5 to 2 tablets by mouth nightly Ubrogepant (Ubrelvy) 100 MG tablet Every 24 hours zafirlukast (ACCOLATE) 20 mg, Oral, 2 times daily ALLERGIES: Allergies Allergen Reactions Indomethacin Unknown fainting Lincomycin Anaphylaxis and Rash Other Swelling Sulfa Antibiotics Hives Egg-Derived Products Swelling and Unknown Says about 1964? and only one arm affected. No rash, hives, or trouble breathing Lincomycin Hcl Unknown Poultry Meal Sulfamethoxazole-Trimethoprim Hives Aspartame Unknown migraines Augmentin [Amoxicillin-Pot Clavulanate] Rash Clavulanic Acid Rash Clemizole Rash Influenza Vaccines Rash Grown on eggs Penicillins Rash Wound Dressing Adhesive Rash SURGICAL HISTORY: Past Surgical History: Procedure Laterality Date ADENOIDECTOMY 3 APPENDECTOMY 1965 BREAST BIOPSY x4 - [id number] CHOLECYSTECTOMY 2002 EYE SURGERY 01/21/2023 retinal repair [facility] HEMANGIOMA EXCISION 1946 from upper back HYSTERECTOMY 1984 KNEE SURGERY Bilateral arthroscopic knee surgery x3 (Rx2, Lx1) ([id number]) LAPAROTOMY OOPHERECTOMY 1985 LUMBAR DISCECTOMY 1989 partial LUMBAR DISCECTOMY 01/14/2017 Microdiscetomy L5-S1 LUMBAR DISCECTOMY 07/03/2021 L1-2 partial discectomy, L1-2, L2-3 cleaning out of stenosis in the spinal canal [facility] LUMBAR EPIDURAL INJECTION 12/20/2020 Dr Clifton RADIOFREQUENCY ABLATION 03/29/2020 lumbar ROTATOR CUFF REPAIR Right 2012 SPINAL FUSION 2010 L3-L5 TONSILLECTOMY 1953 TRIGGER FINGER RELEASE Right 1995 release of Dequervan's tendon - R wrist TRIGGER FINGER RELEASE Right 05/16/2018 FAMILY HISTORY: Family History Problem Relation Name Age of Onset Hypertension Mother [place] Cancer Mother Chloe Baer COPD Father Dre Baer Cancer Father Dre Baer Arthritis Father Dre Baer Asthma Father Dre Baer Stroke Paternal Grandfather Tra Baer Diabetes Paternal Grandmother Sandra Baer Hearing loss Paternal Grandmother Sandra Baer Stroke Paternal Grandmother Sandra Baer Alcohol abuse Father's Brother Jesús Baer Cancer Mother's Sister Jannette Nascimento Cancer Mother's Sister Nisa Dunham Cancer Mother's Sister Janet Mejia COPD Father's Brother Jluis Baer Early natural Mother's Sister Lorna Agee Mental illness Neg Hx Drug abuse Neg Hx SOCIAL HISTORY: Social History Tobacco Use Smoking status: Never Smokeless tobacco: Never Tobacco comments: Second hand smoke from Father Vaping Use Vaping status: Never Used Substance Use Topics Alcohol use: Not Currently Comment: caffeine: occasional Drug use: Never Depression: Not at risk (03/10/2024) Received from [facility], [facility] PHQ-2 Total Score: 0 REVIEW OF SYMPTOMS: Review of Systems OBJECTIVE: Visit Vitals BP 126/72 (BP Location: Right arm, Patient Position: Sitting, BP Cuff Size: Adult) Pulse 90 Resp 18 Ht 5' 3 Wt 153 lb SpO2 97% BMI 27.10 kg/m Smoking Status Never BSA 1.76 m Physical Exam Constitutional: Appearance: Normal appearance. She is normal weight. Musculoskeletal: Cervical back: Normal range of motion and neck supple. Comments: Right posterior chest wall with tenderness to palpaiton Skin: General: Skin is warm and dry. Neurological: General: No focal deficit present. Mental Status: She is alert and oriented to person, place, and time. Mental status is at baseline. Psychiatric: Mood and Affect: Mood normal. Behavior: Behavior normal. Thought Content: Thought content normal. Judgment: Judgment normal. ASSESSMENT AND PLAN: Assessment/Plan Problem List Items Addressed This Visit Chronic idiopathic constipation Relevant Medications polyethylene glycol, PEG, 3350 (MiraLax) 17 GM/SCOOP powder Other Visit Diagnoses Urinary frequency - Primary Miralax as above, decrease caffiene, cont detrol rechck ua , and c/s urology Relevant Orders Ambulatory referral to Urology Dysuria Relevant Orders POCT Urinalysis dipstick Chronic right-sided thoracic back pain Relevant Orders XR thoracic spine 3 views Assessment & Plan 1. Urinary urgency. The patient's symptoms of urinary urgency are concerning. The recent urine culture was normal, suggesting that the symptoms may not be due to an infection. She has been advised to reduce caffeine intake and discontinue Cipro until the new culture results are available. A urine sample will be collected for further analysis. A referral to Dr. Chapin, a urologist, has been made for further evaluation. 2. Potential yeast or C. difficile infection. Given the recent use of Cipro, there is a concern for a potential yeast or C. difficile infection. She has been advised to discontinue Cipro until the new culture results are available. 3. Bowel issues. Bowel issues may be contributing to the urinary symptoms. A prescription for MiraLAX has been provided to address potential bowel issues. It is a powder that will dissolve in any preferred drink. She is advised to see if having a bowel movement every day makes a difference. 4. Thoracic spine pain. The patient reports pain higher up on the right side of her back, which has been ongoing for the same amount of time as her urinary symptoms. An x-ray will be performed to rule out a new compression fracture in the thoracic spine. She has been advised to take Tylenol as needed for pain management. 5. Osteoporosis. She is currently on 70 mg of Fosamax weekly, which was increased from 35 mg. This treatment will be continued as prescribed by Dr. 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 Bia Cao regarding these findings; we recommend investigating other etiologies of imbalance in Mrs. Ruth documented in this encounter [facility] 04-04-2024 Nurse Note Additional intake questions: Has the patient had fever, nausea, vomiting, diarrhea, constipation, fatigue for > 1 week? No Does the patient have a decreased appetite? No Does patient want to see a Diagram Clerk? No (yes to any of above refer patient to schedulers for dietitian appointment) ) Does patient have any new or increased numbness or tingling of extremities? No Is patient interested in fertility information? No Does patient need any prescription refills? No Does patient have an advanced directive in place? Yes, no copy found in [facility] Patient referred to [facility] Electronically Signed By: Josette Sheppard MA [facility] 04-04-2024 Nurse Note Additional intake questions: Has the patient had fever, nausea, vomiting, diarrhea, constipation, fatigue for > 1 week? No Does the patient have a decreased appetite? No Does patient want to see a Diagram Clerk? No (yes to any of above refer patient to schedulers for dietitian appointment) ) Does patient have any new or increased numbness or tingling of extremities? No Is patient interested in fertility information? No Does patient need any prescription refills? No Does patient have an advanced directive in place? Yes, no copy found in [facility] Patient referred to [facility] Electronically Signed By: Josette Sheppard MA documented in this encounter [facility] 04-04-2024 History of Present illness Narrative Images from the original note were not included. SECTION OF SKULL BASE SURGERY MINIMALLY INVASIVE CRANIAL BASE & PITUITARY SURGERY PROGRAM Jessica [facility] [place], [facility] CC: Patient Care Team: Bia Cao as PCP ([facility]) Ileana Cortes MD as NI Referring Team [...] our skull base team advance practice providers ([place] preference). - follow up with organ pipe finisher for hearing loss which is unrelated to [...] Patient is accompanied by her granddaughter (her concrete truck driver) and great grand daughter). The [...] contrast and shows a 1.2 cm R INSPECTOR MACHINE CUT GLASS contrast-enhancing lesion concerning for either schwannoma or meningioma- no associated mass effect or edema. The patient takes ASA 81 mg daily for cardioprotection per her PCP. The patient has been using a cane for the last 5-6 years. The patient reports that ~6 weeks ago, she walked into her garage door and fell. The patient has not seen an organ pipe finisher or a vestibular therapist. Past Medical History: [...] 160 mg by mouth once daily. fexofenadine (ALLY) 180 mg tablet Take 180 mg [...] contrast and shows a 1.2 cm R INSPECTOR MACHINE CUT GLASS contrast-enhancing lesion extra-axial mass arising from the right posterior petrous ridge with no significant mass effect and not abutting the right vestibular cochlear complex. documented in this encounter [facility] 04-04-2024 Note HNO ID: [id number] Author: MANDI HOOVER MD Service: ? Author Type: Physician Type: Progress Notes Filed: 04/05/2024 17:50 Note Text: SECTION OF SKULL BASE SURGERY MINIMALLY INVASIVE CRANIAL BASE AND PITUITARY SURGERY PROGRAM Jessica [facility] AND [facility] [place], [facility] CC: Patient Care Team: Bia Cao as PCP ([facility]) Ileana Cortes MD as NI Referring Team [...] 6 months with a repeat MRI scan ([place] preference) and clinic visit with one of our skull base team advance practice providers ([place] preference). - follow up with organ pipe finisher for hearing loss which is unrelated to [...] Patient is accompanied by her granddaughter (her concrete truck driver) and great grand daughter). The [...] contrast and shows a 1.2 cm R INSPECTOR MACHINE CUT GLASS contrast-enhancing lesion concerning for either schwannoma or meningioma- no associated mass effect or edema. The patient takes ASA 81 mg daily for cardioprotection per her PCP. The patient has been using a cane for the last 5-6 years. The patient reports that ~6 weeks ago, she walked into her garage door and fell. The patient has not seen an organ pipe finisher or a vestibular therapist. Past Medical History: [...] mg (VYTORIN) 10-40 (more content not included)... [facility] 03-28-2024 Telephone encounter Note Called patient to schedule an appointment. No ans/left message to call the office back. Appointment scheduled: 04/04/2024 10:30 AM (Arrive by 10:15 AM) Mandi Hoover MD [facility] [place] RAMAN Alonso [facility] 03-28-2024 Miscellaneous Notes Called patient to schedule an appointment. No ans/left message to call the office back. Appointment scheduled: 04/04/2024 10:30 AM (Arrive by 10:15 AM) Mandi Hoover MD [facility] [place] RAMAN Alonso Time Frame: First available Provider: Kiko Landrum Soni Referring: Ileana Cortes MD Images to be requested from [facility] Dx: Right CPA mass Patient: Angela Ruth Address: Angela Ruth [id number] [place] [address] Per Triage: HISTORY OF PRESENT ILLNESS Angela [...] unremarkable. The extracranial soft tissues are unremarkable. Rose Velasquez APRN.MAHENDRA March 28, 2024 Referral source: Ileana Cortes MD ([facility]) Reason for visit: consideration of gamma knife for 1.2 cm enhancing lesion at right cerebelloponitine angle with leading differential including vestibular schwannoma and meningioma External records: Sent with referral and pulled from [facility] Triage: Required, forwarded to [facility] by telephone encounter sent to [facility] Scheduling Triage. Financial clearance: Not required to schedule documented in this encounter [facility] 03-28-2024 Telephone encounter Note Time Frame: First available Provider: Kiko Landrum Soni Referring: Ileana Cortes MD Images to be requested from [facility] Dx: Right CPA mass Patient: Angela Ruth Address: Angela Ruth [id number] [address] [place] [address] [facility] [id number] Per Triage: HISTORY OF PRESENT ILLNESS Angela [...] unremarkable. The extracranial soft tissues are unremarkable. Rose Velasquez APRN.X RAY INSPECTOR March 28, 2024 [facility] 03-24-2024 Telephone encounter Note Referral source: Ileana Cortes MD ([facility]) Reason for visit: consideration of gamma knife for 1.2 cm enhancing lesion at right cerebelloponitine angle with leading differential including vestibular schwannoma and meningioma External records: Sent with referral and pulled from [facility] Triage: Required, forwarded to [facility] by telephone encounter sent to [facility] Scheduling Triage. Financial clearance: Not required to schedule [facility] 02-24-2024 History of Present illness Narrative Images from [...] Breast disorder 4 biopsies Bronchitis 01/01/2017 Cancer ([facility]) Basal cell Carpal tunnel syndrome Cataract Chronic [...] 07/07/2018 Performed by Lalit Leach MD at [facility] ENDOSCOPY COSMETIC SURGERY 1985 DISCECTOMY 1990 Partial L4-5 EGD 2001 EYE SURGERY 2015 FOOT SURGERY 2009 Reattachment of tendon left foot with bone graft HIP SURGERY 2003 Excision of bursa left hip HYSTERECTOMY 1984 INJECTION BLOCK EPIDURAL STEROID LUMBAR/SACRAL Left L 5,1 NR Left 12/20/2020 Performed by Shubham Clifton MD at [facility] IN[facility]CTION BLOCK NERVE MEDIAL BRANCH right C 4/5,5/6 Right 05/22/2022 Performed by Shubham Clifton MD at [facility] IN[facility]CTION BLOCK NERVE MEDIAL BRANCH right C 4/5,5/6 Right 04/17/2022 Performed by Shubham Clifton MD at [facility] CAUDAL EPIDURAL WITH CATHETER, STEROID N/A 03/07/2018 Performed by Shubham Clifton MD at [facility] LARGE JOINT BURSA: bilat hip Bilateral 12/10/2017 Performed by Shubham Clifton MD at [facility] MEDIAL BRANCH NERVE BLOCK Bilateral L 4/5, 5/1 Bilateral 06/28/2017 Performed by Shubham Clifton MD at [facility] MEDIAL BRANCH NERVE BLOCK Right L 2/3, 3/4 Right 12/08/2019 Performed by Shubham Clifton MD at [facility] MEDIAL BRANCH NERVE BLOCK RIGHT L23 34 Right 01/19/2020 Performed by Shubham Clifton MD at [facility] SI JOINT Bilateral 04/09/2017 Performed by Shubham Clifton MD at [facility] INJECTION SI JOINT Bilateral SI Joint Bilateral 05/31/2020 Performed by Shubham Clifton MD at [facility] SI JOINT Left SI JOint Left 01/06/2019 Performed by Shubham Clifton MD at [facility] SI JOINT Right SI Joint Right 06/09/2019 Performed by Shubham Clifton MD at [facility] SPINE TRANSFORAMINAL Left L 4, 5 NR Left 09/24/2017 Performed by Shubham Clifton MD at [facility] SPINE TRANSFORAMINAL Left L 5,1 Nroot Left 01/08/2023 Performed by Shubham Clifton MD at [facility] SPINE TRANSFORAMINAL Right L 5,1 Nroot Right 11/27/2022 Performed by Shubham Clifton MD at [facility] STEROID EPI 1 WITH SEDATION Left 5,1 NR Left 05/08/2019 Performed by Shubham Clifton MD at [facility] KNEE ARTHROSCOPY 2013 KNEE SURGERY 2010 2013 Arthroscopy bilateral/repair meniscus right X2, left X1 LAMINECTOMY LUMBAR FORAMENOTOMY MULTI LEVEL L1-2 RIGHT/L2-3 BILATERAL/LUMBAR DRAIN INSERTION N/A 07/03/2021 Performed by Ileana Cortes MD at [facility] LAPAROTOMY OOPHERECTOMY Bilateral 1984 LUMBAR DISCECTOMY LUMBAR FUSION 2010 L3-5 LUMBAR LAMINECTOMY MICRO LUMBAR DISCECTOMY L5-S1/ FORAMINOTOMY L5-S1 Left 01/14/2017 Performed by Ileana Cortes MD at [facility] OOPHORECTOMY 1982 OTHER SURGICAL HISTORY Knee Arthroscopy With Medial Meniscus Repair OTHER SURGICAL HISTORY Spinal Diskectomy RADIO FREQUENCY ABLATION Left L 4/5, 5/1 Left 12/02/2018 Performed by Shubham Clifton MD at [facility] RADIO FREQUENCY ABLATION Left L 4/5, 5/1 Left 07/30/2017 Performed by Shubham Clifton MD at [facility] RADIO FREQUENCY ABLATION Left SI joint Left 03/31/2019 Performed by Shubham Clifton MD at [facility] RADIO FREQUENCY ABLATION Right L2/3, 3/4 Right 03/29/2020 Performed by Shubham Clifton MD at [facility] RADIOFREQUENCY ABLATION SPINAL Left Si joint Left 05/07/2017 Performed by Shubham Clifton MD at [facility] RADIOFREQUENCY ABLATION SPINAL Right C 4/5,5/6 Right 06/26/2022 Performed by Shubham Clifton MD at [facility] RADIOFREQUENCY ABLATION SPINAL RIGHT SI JOINT Right 05/21/2017 Performed by Shubham Clifton MD at [facility] RELEASE CARPAL TUNNEL Left 11/04/2021 Performed by Ileana Cortes MD at [facility] SHOULDER SURGERY 2011 Right rotator cuff [...] mouth in the morning., Disp: , Rfl: wmvkwiw-kdzicocxuclrc-oqjjtruj (EXCEDRIN MIGRAINE) 250-250-65 mg per tablet, Take 1 tablet by mouth every 6 (six) hours as needed for headaches., Disp: , Rfl: atorvastatin (LIPITOR) 40 mg tablet, Take 1 tablet (40 mg total) by mouth in the morning., Disp: , Rfl: buprenorphine (BUTRANS) 7.5 mcg/hour patch weekly, Place 1 patch on the skin once a week., Disp: , Rfl: oxwwtdmjrp-vkdhmadbxunzb-unnq (ESGIC) 50-325-40 mg per tablet, Take 1 [...] meals., Disp: 60 tablet, Rfl: 2 fexofenadine (ALLY) 180 mg tablet, Take 1 tablet (180 [...] (FOSAMAX) 35 mg tablet Dose adjustment pediatric zvpjakmv-juhv-quk (flintstones complete) tablet,chewable Duplicate Listing Total time spent was 30 minutes which did not include goij-xw-ysfh contact with the patient: Preparing to see the patient (e.g., review of tests) Obtaining and/or reviewing separately obtained history Referring and communicating with other health body care manager (not separately reported) Documenting clinical information in the electronic or other health record Independently interpreting results (not separately reported) and communicating results to the patient/family/caregiver The note was completed using EMR. Every effort was made to ensure accuracy; however, inadvertent computerized supervisor production managing errors may be present. CARDIOVASCULAR STUDIES: EKG: No results found. ECHO: No results found. Stress Test: No results found. Cath: No results found. Device: Other: RYAN DALLAS MD [facility] Miscellaneous Notes Patient called and [...] Modules accepted: Orders documented in this encounter [facility] 02-09-2024 Note Addended by: Anna HAWKINS on: 02/10/2024 12:55 PM Modules accepted: Orders [facility] 02-09-2024 Telephone encounter Note Patient called and stated her bp has been elevated. She c/o Headache. 184/92, 224/95 217/93 she took an extra 50mg hydralazine as you have directed PRN and bp 146/78. Please advise going forward. [facility] 02-09-2024 Telephone encounter Note Increase hydralazine to 100 mg twice a day [facility] 02-09-2024 Telephone encounter Note I left patient a voicemail to call me back to verify the dose she is taking now of hydralazine. [facility] 02-09-2024 Telephone encounter Note I spoke to patient and she stated she is taking hydralazine 100mg daily. She is reluctant to try BID as it previously caused hypotension. Patient will try and then keep a bp log. [facility] 01-07-2024 History of Present illness Narrative Images [...] (migraines) Inderal (tremors) Gabapentin 200 mg nightly [facility] PRN Occipital nerve blocks (last 03/2021) Tizanidine [...] Breast disorder 4 biopsies Bronchitis 01/01/2017 Cancer ([facility]) Basal cell Carpal tunnel syndrome Cataract [...] 07/07/2018 Performed by Lalit Leach MD at [facility] ENDOSCOPY COSMETIC SURGERY 1985 DISCECTOMY 1989 Partial L4-5 EGD 2001 EYE SURGERY 2014 FOOT SURGERY 2009 Reattachment of tendon left foot with bone graft HIP SURGERY 2003 Excision of bursa left hip HYSTERECTOMY 1983 INJECTION BLOCK EPIDURAL STEROID LUMBAR/SACRAL Left L 5,1 NR Left 12/20/2020 Performed by Shubham Clifton MD at [facility] BLOCK NERVE MEDIAL BRANCH right C 4/5,5/6 Right 05/22/2022 Performed by Shubham Clifton MD at [facility] IN[facility] BLOCK NERVE MEDIAL BRANCH right C 4/5,5/6 Right 04/17/2022 Performed by Shubham Clifton MD at [facility] CAUDAL EPIDURAL WITH CATHETER, STEROID N/A 03/07/2018 Performed by Shubham Clifton MD at [facility] INJECTION LARGE JOINT BURSA: bilat hip Bilateral 12/10/2017 Performed by Shubham Clifton MD at [facility] MEDIAL BRANCH NERVE BLOCK Bilateral L 4/5, 5/1 Bilateral 06/28/2017 Performed by Shubham Clifton MD at [facility] MEDIAL BRANCH NERVE BLOCK Right L 2/3, 3/4 Right 12/08/2019 Performed by Shubham Clifton MD at [facility] INJECTION MEDIAL BRANCH NERVE BLOCK RIGHT L23 34 Right 01/19/2020 Performed by Shubham Clifton MD at [facility] SI JOINT Bilateral 04/09/2017 Performed by Shubham Clifton MD at [facility] SI JOINT Bilateral SI Joint Bilateral 05/31/2020 Performed by Shubham Clifton MD at [facility] SI JOINT Left SI JOint Left 01/06/2019 Performed by Shubham Clifton MD at [facility] SI JOINT Right SI Joint Right 06/09/2019 Performed by Shubham Clifton MD at [facility] SPINE TRANSFORAMINAL Left L 4, 5 NR Left 09/24/2017 Performed by Shubham Clifton MD at [facility] SPINE TRANSFORAMINAL Left L 5,1 Nroot Left 01/08/2023 Performed by Shubham Clifton MD at [facility] INJECTION SPINE TRANSFORAMINAL Right L 5,1 Nroot Right 11/27/2022 Performed by Shubham Clifton MD at [facility] INJECTION STEROID EPI 1 WITH SEDATION Left 5,1 NR Left 05/08/2019 Performed by Shubham Clifton MD at [facility] KNEE ARTHROSCOPY 2010, 2013 KNEE SURGERY 2010 2013 Arthroscopy bilateral/repair meniscus right X2, left X1 LAMINECTOMY LUMBAR FORAMENOTOMY MULTI LEVEL L1-2 RIGHT/L2-3 BILATERAL/LUMBAR DRAIN INSERTION N/A 07/03/2021 Performed by Ileana Cortes MD at [facility] LAPAROTOMY OOPHERECTOMY Bilateral 1983 LUMBAR DISCECTOMY LUMBAR FUSION 2009 L3-5 LUMBAR LAMINECTOMY MICRO LUMBAR DISCECTOMY L5-S1/ FORAMINOTOMY L5-S1 Left 01/14/2017 Performed by Ileana Cortes MD at [facility] OOPHORECTOMY 1982 OTHER SURGICAL HISTORY Knee Arthroscopy With Medial Meniscus Repair OTHER SURGICAL HISTORY Spinal Diskectomy RADIO FREQUENCY ABLATION Left L 4/5, 5/1 Left 12/02/2018 Performed by Shubham Clifton MD at [facility] RADIO FREQUENCY ABLATION Left L 4/5, 5/1 Left 07/30/2017 Performed by Shubham Clifton MD at [facility] RADIO FREQUENCY ABLATION Left SI joint Left 03/31/2019 Performed by Shubham Clifton MD at [facility] RADIO FREQUENCY ABLATION Right L2/3, 3/4 Right 03/29/2020 Performed by Shubham Clifton MD at [facility] RADIOFREQUENCY ABLATION SPINAL Left Si joint Left 05/07/2017 Performed by Shubham Clifton MD at [facility] RADIOFREQUENCY ABLATION SPINAL Right C 4/5,5/6 Right 06/26/2022 Performed by Shubham Clifton MD at [facility] RADIOFREQUENCY ABLATION SPINAL RIGHT SI JOINT Right 05/21/2017 Performed by Shubham Clifton MD at [facility] RELEASE CARPAL TUNNEL Left 11/04/2021 Performed by Ileana Cortes MD at [facility] SHOULDER SURGERY 2011 Right rotator cuff [...] mg total) by mouth in the morning. pannpif-zrxpfxtwjawbf-gwpbmhfs (EXCEDRIN MIGRAINE) 250-250-65 mg per tablet Take 1 tablet by mouth every 6 (six) hours as needed for headaches. atorvastatin (LIPITOR) 40 mg tablet Take 1 tablet (40 mg total) by mouth in the morning. buprenorphine (BUTRANS) 7.5 mcg/hour patch weekly Place 1 patch on the skin once a week. bxgzzdavlp-rvgqsdejvnzgt-byqs (ESGIC) 50-325-40 mg per tablet Take 1 [...] (160 mg total) by mouth nightly. fexofenadine (ALLY) 180 mg tablet Take 1 tablet (180 [...] procedures Referring and communicating with other health body care manager (not separately reported) Documenting clinical information in the electronic or other health record Independently interpreting results (not separately reported) and communicating results to the patient/family/caregiver Care coordination (not separately reported) - Yoanna Dorsey DNP, TUBE SIZER AND CUTTER OPERATOR-X RAY INSPECTOR 01/07/24 10:53 AM [facility]o 01/07/24 1053 documented in this encounter [facility] 01-07-2024 Instructions CHACE Rayo - [...] earlier if needed. documented in this encounter [facility] 12-13-2023 Miscellaneous Notes Okay to sign and send documented in this encounter [facility] 12-13-2023 Telephone encounter Note Okay to sign and send [facility] Evaluation note Diagnosis General weakness- Primary Other malaise and fatigue History of falling documented in this encounter [facility]* Diagnosis Mixed hyperlipidemia (CMS/HCC)- Primary Mixed hyperlipidemia Stress incontinence of urine documented in this encounter [facility]* Diagnosis General weakness- Primary Other malaise and fatigue History of falling documented in this encounter [facility]* Diagnosis General weakness- Primary Other malaise and fatigue History of falling documented in this encounter [facility]* Diagnosis Migraine without aura and [...] of both ears [facility] Diagnosis Essential hypertension Unspecified essential hypertension [facility] Diagnosis Essential hypertension Unspecified essential hypertension [facility] Diagnosis Essential hypertension- Primary Unspecified essential hypertension LVH (left ventricular hypertrophy) Cardiomegaly Mixed hyperlipidemia Hypotension due to drugs Other iatrogenic hypotension [facility] Diagnosis Brain mass [G93.89]- Primary Unspecified condition of brain [facility] Diagnosis Intracranial meningioma (HCC)- Primary Benign neoplasm of cerebral meninges Sensorineural hearing loss (SNHL) of right ear, unspecified hearing status on contralateral side Dizziness Dizziness and giddiness [facility] Diagnosis Intracranial meningioma (HCC)- Primary Benign neoplasm of cerebral meninges Benign neoplasm of meninges (HCC) Benign neoplasm of cerebral meninges [facility] Diagnosis Urge incontinence [facility] Diagnosis Benign neoplasm of meninges (HCC)- Primary Benign neoplasm of cerebral meninges Dizziness Dizziness and giddiness [facility] Benign neoplasm of meninges (HCC) Benign neoplasm of cerebral meninges [facility] Diagnosis Dermatophytosis of nail- Primary Dystrophic nail Other specified disease of nail Pain around toenail, right foot Pain around toenail, left foot documented in this encounter [facility]* Diagnosis Hoarse- Primary Dysphonia Purulent postnasal drainage Primary insomnia Persistent disorder of initiating or maintaining sleep Gastroesophageal reflux disease without esophagitis Esophageal reflux documented in this encounter [facility]* Diagnosis Hyperlipidemia, unspecified hyperlipidemia type (CMS/HCC) documented in this encounter [facility]* Diagnosis Urinary frequency- Primary Dysuria Chronic idiopathic constipation Unspecified constipation Chronic right-sided thoracic back pain Chronic right-sided thoracic back pain documented in this encounter [facility]* Diagnosis Acute cystitis without hematuria- Primary documented in this encounter [facility]* Diagnosis Acute bronchitis, unspecified organism- Primary Seasonal allergic rhinitis due to pollen documented in this encounter [facility] HealthcareInstructionsNot on filedocumented in this encounterProW. [facility] SystemInstructionsNot on filedocumented in this encounterProDayton [facility] SystemInstructionsNot on filedocumented in this encounterProDayton Children'S Hospital SystemInstructionsNot on filedocumented in this encounterProDayton Children'S [facility] System InstructionsNot on filedocumented in this encounterOhioHealth [facility] InstructionsNot on filedocumented in this encounterOhioHealth [facility]ering[facility] SystemReason for referral (narrative)* Consultation (Routine) - Authorized Specialty Diagnoses / Procedures Referred By Violette staley Referred To Contact Urology Diagnoses Urinary frequency Procedures CA OFFICE/OUTPATIENT [facility] 60 MINUTES Bia Cao MD [address] [place] [address] Maria C Kramer MD [address] [place] [address] Referral ID Status Reason Start Date Expiration Date Visits Requested Visits Authorized [id number] Authorized Specialty Services Required 07/10/2024 01/06/2025 1 1 [facility] Summary Purpose Family History No Family History Records FoundNo Family History Records FoundNo Family History Records FoundNo Family History Records FoundNo Family History Records FoundNo Family History Records FoundNo Family History Records FoundNo Family History Records FoundNo Family History Records FoundNo Family History Records Found Advance Directives Documents on File Type Date Recorded Patient Foot And Ankle Surgeon Expl anation Durable Power of Sheet Rock Taper Helper 07/16/2021 3:45 PM Living Will 07/16/2021 3:40 [...] Documents on File Type Date Recorded Patient Foot And Ankle Surgeon Expl anation Durable Power of Sheet Rock Taper Helper 07/16/2021 3:45 PM Living Will 07/16/2021 3:40 [...] ears Procedures Hearing Evaluation (Audiology) Yoanna Dorsey APRN-X RAY INSPECTOR [address] [place] [address] Referral ID Status Reason Start Date Expiration Date V isits Requested Visits Authorized [id number] Pending Review 01/07/2024 01/06/2025 1 1 Specialty Diagnoses / Procedures Referred By Contac t Referred To Contact MR IMAGING Diagnoses Benign neoplasm of meninges (HCC) Procedures MRI BRAIN WO/W IVCON MRI BRAIN BRAIN STEM W/O W/CONTRAST MATERIAL Mandi Hoover MD [address] [place] [address] Mr [facility] [place] [address] Referral ID Status Reason Start Date Expiration Date Visits Requested Visits Authorized [id number] Pending Review Auto-Generat ed Referral 08/28/2024 06/08/2025 1 1 Specialty Diagnoses / Procedures Referred By Contac t Referred To Contact Diagnoses Urinary frequency Procedures Measure post void residual Maria C Kramer MD [address] [place] [id number] Referral ID Status Reason Start Date Expiration Date V isits Requested Visits Authorized [id number] Pending Review 08/29/2024 08/29/2025 1 1 Specialty Diagnoses / Procedures Referred By Contac t Referred To Contact MR IMAGING Diagnoses Benign neoplasm of meninges (HCC) Procedures MRI BRAIN WO/W IVCON MRI BRAIN BRAIN STEM W/O W/CONTRAST MATERIAL Rose Velasquez APRN.X RAY INSPECTOR [address] [place] [address] Mr [facility] [place] [address] Referral ID Status Reason Start Date Expiration Date Visits Requested Visits Authorized [id number] New Request Auto-Generat ed Referral 09/26/2024 10/26/2025 1 1 Referral ID Status Reason Start Date Expiration Date V isits Requested Visits Authorized [id number] Closed Auto-Generate d Referral 08/28/2024 06/08/2025 1 1 Additional Source Comments INFORMATION SOURCE (unrecogn ized section and content) DATE CREATED AUTHOR 05/16/2018 [facility] DATE CREATED AUTHOR AUTHOR'S ORGANIZ ATION 06/21/2019 [facility] DATE CREATED AUTHOR AUTHOR'S ORGANIZ ATION 11/13/2022 [facility] DATE CREATED AUTHOR AUTHOR'S ORGANIZ ATION 12/07/2022 [facility] DATE CREATED AUTHOR AUTHOR'S ORGANIZ ATION 12/04/2023 [facility] DATE CREATED AUTHOR AUTHOR'S ORGANIZ ATION 07/11/2024 [facility] DATE CREATED AUTHOR AUTHOR'S ORGANIZ ATION 08/31/2024 [facility] DATE CREATED AUTHOR AUTHOR'S ORGANIZ ATION 09/14/2024 [facility] DATE CREATED AUTHOR AUTHOR'S ORGANIZ ATION 10/08/2024 [facility] DATE CREATED AUTHOR AUTHOR'S ORGANIZ ATION 11/02/2024 [facility] dical Specialists EPIC Reason for Visit (unrecogniz ed section and content) Reason Onset Date Comments Med Refill 12/13/2023 Specialty Diagnoses / Procedures Referred By Contac t Referred To Contact Physical Therapy Diagnoses Muscle weakness (generalized) Procedures TREATMENT Bia Cao MD [address] [place] [address] Elmer Pettit, PT [address] [place] [address] Referral ID Status Reason Start Date Expiration Date V isits Requested Visits Authorized [id number] Authorized 12/08/2023 06/05/2024 99 99 Reason Comments Med Refill Reason Comments Blood Pressure Check Reason Comments Received Outside Medical Records Externa l referral to [facility] [place] triage Nurse Triage Call Appointment Reason Comments Consult Reason Onset Date Comments Med Refill 08/22/2024 Reason Comments Urinary Frequency Specialty Diagnoses / Procedures Referred By Contac t Referred To Contact Urology Diagnoses Urinary frequency Bia Cao MD [address] [place] [address] [facility] [address] [place] [address] Referral ID Status Reason Start Date Expiration Date Visits Requested Visits Authorized [id number] Pending Review Specialty Services Required 07/11/2024 07/11/2025 1 1 Reason Comments New Patient Intracranial Meningi brandon Reason Comments Radiology MRI Specialty Diagnoses / Procedures Referred By Violette staley Referred To Contact MR IMAGING Diagnoses Benign neoplasm of meninges (HCC) Procedures MRI BRAIN WO/W IVCON MRI BRAIN BRAIN STEM W/O W/CONTRAST MATERIAL Mandi Hoover MD [address] [place] [address] [place] [address] Referral ID Status Reason Start Date Expiration Date V isits Requested Visits Authorized [id number] Closed Auto-Generate d Referral 08/28/2024 06/08/2025 1 1 Reason Comments Patient Question Reason Comments Ingrown Toenail Established pt prese nts today for concerns of possible ingrown nails, BL hallux. Denies infection. Reason Comments Follow-up Patient presents tod ay for 4 month follow up. Reason Comments UTI Patient presents tod ay for urgency, frequency, burning with urination. Patient states that it has been ongoing for 10 days. Seen Traci last Wednesday, the and urine results came back normal. Patient has been taking the cipro that Traci prescribed and is not any better. Care Teams (unrecognized sec tion and content) Vp Respiratory Relationship Specialty Start Date End Date Bia Cao MD [address] [place] [address] PCP - General Family Medicine 02/05/23 Vp Respiratory Relationship Specialty Start Date End Date Jacob Viveros PCP - Aetyu 11/22/22 Bia Cao MD [address] [facility] [place] [address] PCP - General Family Medicine 04/29/23 Vp Respiratory Relationship Specialty Start Date End Date Jacob Viveros PCP - [employer] 11/22/22 Bia Cao MD [address] [place] [address] PCP - General Family Medicine 04/29/23 Vp Respiratory Relationship Specialty Start Date End Date Jacob Viveros PCP - [employer] 11/22/22 Bia Cao MD [address] [place] [address] PCP - General Family Medicine 04/29/23 Vp Respiratory Relationship Specialty Start Date End Date Jacob Viveros PCP - [employer] 11/22/22 Bia Cao MD [address] [place] [address] PCP - General Family Medicine 04/29/23 Vp Respiratory Relationship Specialty Start Date End Date Jacob Viveros PCP - [employer] 11/22/22 Bia Cao MD [address] [place] [address] PCP - General Family Medicine 04/29/23 Vp Respiratory Relationship Specialty Start Date End Date Jacob Viveros PCP - [employer] 11/22/22 Bia Cao MD [address] [place] [address] PCP - General Family Medicine 04/29/23 Vp Respiratory Relationship Specialty Start Date End Date Bai Cao MD [address] [place] [address] PCP - General Family Medicine 02/05/23 Vp Respiratory Relationship Specialty Start Date End Date Bia Cao MD [address] [facility] [place] [address] PCP - General Family Medicine 02/05/23 Vp Respiratory Relationship Specialty Start Date End Date Bia Cao MD [address] [facility] [place] [address] PCP - General Family Medicine 02/05/23 Vp Respiratory Relationship Specialty Start Date End Date Bia Cao MD [address] [facility] [place] [address] PCP - General Family Medicine 02/05/23 Vp Respiratory Relationship Specialty Start Date End Date (Hist), No Pcp PCP - General 11/04/17 Ileana Cortes MD [address] [place] [address] NI Referring Team Neurosurgery 03/24/24 Vp Respiratory Relationship Specialty Start Date End Date (Hist), No Pcp PCP - General 11/04/17 Ileana Cortes MD [address] [place] [address] NI Referring Team Neurosurgery 03/24/24 Vp Respiratory Relationship Specialty Start Date End Date (Hist), No Pcp PCP - General 11/04/17 Ileana Cortes MD [address] [place] [address] NI Referring Team Neurosurgery 03/24/24 Vp Respiratory Relationship Specialty Start Date End Date Bia Cao MD PCP - General Family Medicine 02/05/23 Vp Respiratory Relationship Specialty Start Date End Date Bia Cao MD PCP - General Family Medicine 02/05/23 Vp Respiratory Relationship Specialty Start Date End Date (Hist), No Pcp PCP - General 11/04/17 Ileana Cortes MD NI Referring Team Neurosurgery 03/24/24 Vp Respiratory Relationship Specialty Start Date End Date (Hist), No Pcp PCP - General 11/04/17 Ileana Cortes MD NI Referring Team Neurosurgery 03/24/24 Vp Respiratory Relationship Specialty Start Date End Date (Hist), No Pcp PCP - General 11/04/17 Ileana Cortes MD NI Referring Team Neurosurgery 03/24/24 Vp Respiratory Relationship Specialty Start Date End Date Jacob Viveros PCP - [employer] 11/22/21 Bia Cao MD [address] [place] [address] PCP - General Family Medicine 04/29/23 Vp Respiratory Relationship Specialty Start Date End Date Jacob Viveros PCP - [employer] 11/22/21 Bia Cao MD [address] [place] [address] PCP - General Family Medicine 04/29/23 Vp Respiratory Relationship Specialty Start Date End Date Jacob Viveros PCP - [employer] 11/22/21 Bia Cao MD [address] [place] [address] PCP - General Family Medicine 04/29/23 Vp Respiratory Relationship Specialty Start Date End Date SpringBernadette manciniJacob Anny PCP - [employer] 11/22/21 Bia Cao MD [address] [place] [address] PCP - General Family Medicine 04/29/23 Vp Respiratory Relationship Specialty Start Date End Date JackelineBernadette manciniJacob F PCP - [employer] 11/22/21 Bia Cao MD [address] [place] [address] PCP - General Family Medicine 04/29/23 Vp Respiratory Relationship Specialty Start Date End Date JackelineBernadette manciniJacob Anny PCP - [employer] 11/22/21 Bai Cao MD [address] [place] [address] PCP - General Family Medicine 04/29/23 Vp Respiratory Relationship Specialty Start Date End Date SpringBernadette manciniJacob Anny PCP - [employer] 11/22/21 Bia Cao MD [address] [place] [address] PCP - General Family Medicine 04/29/23 Vp Respiratory Relationship Specialty Start Date End Date JackelineJacob PCP - [employer] 11/22/21 Bia Cao MD [address] [place] [address] PCP - General Family Medicine 04/29/23 Vp Respiratory Relationship Specialty Start Date End Date Jacob Viveros PCP - [employer] 11/22/21 Bia Cao MD [address] [place] [address] PCP - General Family Medicine 04/29/23 Source Comments (unrecognize d section and content) In the event this informatio n is protected by the Federal Confidentiality of Alcohol and Drug Abuse Patient Records regulations: The Federal rules restrict any use of the information to criminally investigate or prosecute any alcohol or drug abuse patient.[facility] HealthIn the event this information is protected by the Federal Confidentiality of Alcohol and Drug Abuse Patient Records regulations: The Federal rules restrict any use of the information to criminally investigate or prosecute any alcohol or drug abuse patient.[facility] HealthIn the event this information is protected by the Federal Confidentiality of Alcohol and Drug Abuse Patient Records regulations: The Federal rules restrict any use of the information to criminally investigate or prosecute any alcohol or drug abuse patient.[facility] HealthIn the event this information is protected by the Federal Confidentiality of Alcohol and Drug Abuse Patient Records regulations: The Federal rules restrict any use of the information to criminally investigate or prosecute any alcohol or drug abuse patient.[facility] HealthIn the event this information is protected by the [facility] Confidentiality of Alcohol and Drug Abuse Patient Records regulations: The Federal rules restrict any use of the information to criminally investigate or prosecute any alcohol or drug abuse patient.[facility] HealthIn the event this information is protected by the Federal Confidentiality of Alcohol and Drug Abuse Patient Records regulations: The Federal rules restrict any use of the information to criminally investigate or prosecute any alcohol or drug abuse patient.[facility] FOR RECORDS PERTAINING TO PATIENTS WHO ARE [...] BE BASED ON THE PRIMARY CLINICAL RECORDS. [email or web address]. provides no warranty or guarantee of the accuracy or completeness of information in this document.
[2024-11-20 10:14] VITALS: BP 166/81; PULSE 76; TEMP 36.5; O2SAT 95
[2024-11-20 10:50] VITALS: BP 133/77; BP 142/74; PULSE 79; PULSE 80; O2SAT 94; O2SAT 95
--- NOTE | 2024-11-20 10:54 | P.ON_ITS ---
Date of procedure: 11/20/24 Pre-op diagnosis: Pain due to lumbar stenosis with neurogenic claudication Post-op diagnosis: same as pre-op Procedure: Procedure: Right L4-5, L5-S1 transforaminal epidural steroid injection Medications: Bupivacaine 0.25% 2cc, lidocaine 2% 1cc, depomedrol 80mg The patient was seen and examined in the preoperative holding area.? Informed consent was obtained and placed on the chart.? Patient was brought to the medical procedure unit and placed in the prone position where a timeout was completed verifying the correct patient, procedure site, position, and planned special equipment using sterile aseptic technique.? Under direct fluoroscopic visualization a 25-gauge Quincke tipped spinal needle was advanced to the designated neural foramen where contrast dye was injected to show adequate spread.? The needle was inserted at level right L4-5. There was no evidence of vascular or adverse uptake.? Epidural spread was appreciated.? The above- mentioned injectate was then placed in a 1.5 mL aliquot preceded by negative aspiration.? The needle was removed. The needle was inserted and the procedure repeated at level right L5-S1.? The surgery site was covered.? Patient was taken to the postprocedural recovery area and monitored for an appropriate length of time before found suitable for discharge in the accompaniment of a responsible adult. Anesthesia: Local Surgeon: Adelfo Hansen Pathology: none sent Condition: stable Disposition: no change
[2024-11-20] MEDS: BUPIVACAINE HCL 0.25% PF 25 MG/10 ML VIAL INJ (10:55)
[2024-11-20] MEDS: METHYLPREDNISOLONE ACETATE 80 MG/ML VIAL INJ (10:55)
[2024-11-20] MEDS: IOHEXOL 240 MG/ML - 10 ML VIAL 12 MG INJ (10:55)
[2024-11-20] MEDS: LIDOCAINE HCL 2% 400 MG/20 ML MDV 3 ML INJ (10:55)
[2024-11-20] MEDS: 0.9 % SODIUM CHLORIDE 10 ML SYRINGE - SALINE FLUSH INJ (10:55)
== END 2024-11-20 12:00 | disposition home or self-care (01) ==
LOC: SURGOUT 09:39
PROVIDERS: PCP Family Medicine; Visit Provider Anesthesiology
DX: M48.062 Spinal stenosis, lumbar region with neurogenic claudication (principal)
CPT/HCPCS: 64483; 64484; J0665; J1010; Q9966

== ENCOUNTER 2024-12-07 11:16 | Outpatient (OUT) | payer MEDICARE, SELFPAY ==
--- NOTE | 2024-12-07 11:33 | P.CN_ITS ---
Consult Note: HPI Data of Consult Patient: known to practice within the last 3 years Requesting Physician: Nisa Galarza NP Primary Care Provider: TRUE DAVIS Consult Narrative Reason for consult: f/u Narrative: Angela Ruth a pleasant 79 year old female presents for evaluation of chronic back pain unresponsive to greater than 6 weeks of PT/HEP, ice, heat, tylenol and NSAIDs. pain secondary to lumbar DDD, lumbar spondylosis, sacroilitis. Longstanding hx of pain that responds well to interventional therapy. recently underwent right L4/5 L5/S1 TFESI with mild relief. utilizing aleve, amitriptyline, ASA, butrans and methocarbamol with benefit without side effects. jacquie recent falls. Pain today 8/10 aching in middle back as well as low back and right SIJ. cc:: CC: Nisa Galarza NP Review of Systems ROS Status of ROS 10 or more systems reviewed and unremark able except as noted in history and below Musculoskeletal Reports: back pain and joint pain; Denies: extremity pain PFSH PFSH Medical History TMJ (dislocation of temporomandibular joint) ?S03.00XA - Dislocation of jaw, unspecified side, initial encounter (ICD-10) Neck pain ?M54.2 - Cervicalgia (ICD-10) Back pain ?M54.9 - Dorsalgia, unspecified (ICD-10) Osteoarthritis ?M19.90 - Unspecified osteoarthritis, unspecified site (ICD-10) H/O psychiatric care ?Z92.89 - Personal history of other medical treatment (ICD-10) Heartburn ?R12 - Heartburn (ICD-10) Acid reflux ?K21.9 - Gastro-esophageal reflux disease without esophagitis (ICD-10) Hypothyroid ?E03.9 - Hypothyroidism, unspecified (ICD-10) Kidney stones ?N20.0 - Calculus of kidney (ICD-10) Asthma ?J45.909 - Unspecified asthma, uncomplicated (ICD-10) High cholesterol ?E78.00 - Pure hypercholesterolemia, unspecified (ICD-10) Hypertension ?I10 - Essential (primary) hypertension (ICD-10) Surgical History H/O shoulder surgery ?Z98.890 - Other specified postprocedural states (ICD-10) H/O excision of hemangioma ?Z98.890 - Other specified postprocedural states (ICD-10) ?Z86.018 - Personal history of other benign neoplasm (ICD-10) H/O basal cell carcinoma excision ?Z98.890 - Other specified postprocedural states (ICD-10) ?Z85.828 - Personal history of other malignant neoplasm of skin (ICD-10) H/O lumbosacral spine surgery ?Z98.890 - Other specified postprocedural states (ICD-10) H/O foot surgery ?Z98.890 - Other specified postprocedural states (ICD-10) H/O hand surgery ?Z98.890 - Other specified postprocedural states (ICD-10) H/O wrist surgery ?Z98.890 - Other specified postprocedural states (ICD-10) History of cholecystectomy ?Z90.49 - Acquired absence of other specified parts of digestive tract (ICD- 10) H/O breast biopsy ?Z98.890 - Other specified postprocedural states (ICD-10) History of appendectomy ?Z90.49 - Acquired absence of other specified parts of digestive tract (ICD- 10) History of tonsillectomy and adenoidectomy ?Z90.89 - Acquired absence of other organs (ICD-10) Meds Home Medications and Allergies Home Medications ?Medication ?Instructions ?Recorded ?Confirmed ?Type acetaminophen 650 mg 1,300 mg PO Q8H PRN pain 07/07/23 11/20/24 History tablet,extended release (Arthritis Pain Relief (acetaminophen) ER) albuterol 90 mcg/actuation aerosol 90 mcg inhalation .every 4 hours 07/07/23 11/20/24 History inhaler PRN shortness of breath or wheezing alendronate 35 mg tablet 70 mg PO QWEEK 07/07/23 11/20/24 History amitriptyline 50 mg tablet 50 mg PO DAILY 07/07/23 11/20/24 History ascorbic acid (vitamin C) 500 mg 500 mg PO BID 07/07/23 11/20/24 History tablet,extended release (C Complex) aspirin 81 mg tablet,delayed 81 mg PO DAILY 07/07/23 11/20/24 History release (Adult Aspirin Regimen) atorvastatin 40 mg tablet 40 mg PO DAILY 07/07/23 11/20/24 History calcium carbonate (Calcium 600) 600 mg PO DAILY 07/07/23 11/20/24 History carvedilol 25 mg tablet 25 mg PO BID 07/07/23 11/20/24 History cholecalciferol (vitamin D3) 50 200 mcg PO DAILY 07/07/23 11/20/24 History mcg (2,000 unit) tablet (Vitamin D3) escitalopram oxalate 20 mg tablet 20 mg PO DAILY 07/07/23 11/20/24 History famotidine 20 mg tablet 20 mg PO DAILY 07/07/23 11/20/24 History fenofibrate 160 mg tablet 160 mg PO DAILY 07/07/23 11/20/24 History fexofenadine 180 mg tablet 180 mg PO DAILY 07/07/23 11/20/24 History hydralazine 100 mg tablet 100 mg PO TID 07/07/23 11/20/24 History levothyroxine 150 mcg capsule 150 mcg PO DAILY 07/07/23 11/20/24 History lisinopril 20 1 tab PO DAILY 07/07/23 11/20/24 History mg-hydrochlorothiazide 12.5 mg tablet magnesium 250 mg tablet 250 mg PO DAILY 07/07/23 11/20/24 History dlnkrrmk-skr-angrf acid 0.4 1 tab PO DAILY 07/07/23 11/20/24 History mg-lycopene 300 mcg-lutein 250 mcg tablet (Centrum Silver) omeprazole 40 mg capsule,delayed 40 mg PO DAILY 07/07/23 11/20/24 History release oxybutynin chloride 10 mg 10 mg PO DAILY 07/07/23 11/20/24 History tablet,extended release 24 hr methocarbamol 500 mg tablet 500 mg PO BID 04/19/24 08/21/24 History methocarbamol 500 mg tablet 1,000 mg (2 x 500 mg) PO BID PRN 10/04/24 11/20/24 Rx spasms #60 tabs buprenorphine 7.5 mcg/hour weekly 1 patch transdermal Q7D PRN pain 11/02/24 11/20/24 Rx transdermal patch (Butrans) #4 ea buprenorphine 7.5 mcg/hour weekly 1 patch transdermal Q7D #4 ea 12/05/24 Rx transdermal patch (Butrans) Allergies Allergy/AdvReac Type Severity Reaction Status Date / Time adhesive tape Allergy unknown Verified 11/20/24 10:16 Influenza Virus Vaccines Allergy unknown Verified 11/20/24 10:16 lincomycin (From Lincocin) Allergy Unknown Verified 11/20/24 10:16 Penicillins Allergy Unknown Verified 11/20/24 10:16 Exam Constitutional Documenting provider has reviewed patient's vital signs: yes Common normals: no apparent distress, oriented x3, healthy appearing, alert and well nourished General appearance: cooperative HENMT Common normals: normocephalic, hearing grossly normal bilaterally and moist oral mucous membranes Head and scalp: normocephalic Eye Common normals: PERRL Pupil: PERRL Neck & C-Spine Common normals: full ROM General: normal visual inspection Other: negative facet loading, negative spurlings, strength 5/5 in BUE Chest Common normals: inspection of chest normal Respiratory Common normals: normal respiratory effort, no retractions and no use of accessory muscles Back & Pelvis Lumbar spine/lower back: ROM limited, pain with ROM and straight leg raise n egative bilaterally Sacroiliac joints: SI joint(s) abnormal Other: right SIJ positive eri(patricks), gaenslens, thigh thrust, compression test strength 5/5 in BLE Extremity Other: no pain with internal and external log roll of right hip Neuro Common normals: oriented x3, CN's II-XII intact bilaterally, moves all extremities, no focal motor deficits, no sensory deficits noted and deep tendon reflexes 2+ bilaterally Sensorium/orientation: alert Motor exam: strength 5/5 throughout and no movement abnormalities noted Psych Common normals: mental status grossly normal, thought process normal, cooperative, affect normal, speech normal and activity/motor behavior normal Speech: normal speech Thought process: normal thought process Assessment and Plan Assessment and Plan (1) Sacroiliitis: (2) Myofascial pain: (3) Lumbar stenosis with neurogenic claudication: (4) Lumbar radiculopathy: (5) Chronic prescription opiate use: (6) Lumbar postlaminectomy syndrome: Plan right SIJ injection under fluoroscopy, previous injection provided >50% for 3 months refill/continue methocarbamol 500-1000mg BID PRN pain/spasms continue butrans 7.5mcg/hr patch q7days risks vs benefits of current medication regimen reviewed continue HEP as tolerated
== END 2024-12-07 11:17 | disposition home or self-care (01) ==
PROVIDERS: PCP Family Medicine; Visit Provider Nurse Practitioner
DX: M46.1 Sacroiliitis, not elsewhere classified (principal); M79.18 Myalgia, other site; M48.062 Spinal stenosis, lumbar region with neurogenic claudication; M54.16 Radiculopathy, lumbar region; Z79.891 Long term (current) use of opiate analgesic; M96.1 Postlaminectomy syndrome, not elsewhere classified
CPT/HCPCS: G0463

== ENCOUNTER 2024-12-18 08:32 | Day surgery (SDC) | payer MEDICARE, SELFPAY ==
[2024-12-18 08:46] VITALS: BP 128/76; PULSE 79; TEMP 36.2; O2SAT 98
--- OUTSIDE RECORDS SUMMARY | 2024-12-18 08:52 | XMS_ITS | CCD ---
Author Organization [facility] Team Providers Care Aircraft Maintenance Director Name Role Phone LENNY PEDRAZA Unavailable Unavailable AUDREY HORN Unavailable Unavailable AUDREY HORN Unavailable Unavailable LENNY PEDRAZA Unavailable Unavailable NASH, BIA F Primary Care Unavailable NASH, BIA F Primary Care Unavailable Nash GARCIA, Bia Mccormick Primary Care Provider [phone] Jacob Viveros Unavailable Unavailable Bia Cao MD Primary Care Provider [phone] (Hist), No Pcp Primary Care Provider Unavailkwasi e Ileana Cortes MD Unavailable Bia Cao MD Primary Care Provider NASH, BIA F Referring Unavailable NASH, BIA F Primary Care Unavailable MARIA C KRAMER Attending Unavailable YOANNA DORSEY Attending Unavailable NASH, BIA F Referring Unavailable NASH, BIA F Primary Care Unavailable YOANNA DORSEY Attending Unavailable NASH, BIA F Referring Unavailable NASH, BIA F Primary Care Unavailable DANIEL JOHNSONR Attending Unavailable NASH, BIA F Referring Unavailable NASH, BIA F Primary Care Unavailable YOANNA DORSEY Referring Unavailable NASH, BIA F Primary Care Unavailable ILEANA CORTES Attending Unavailable NASH, BIA F Referring Unavailable NASH, BIA F Primary Care Unavailable YOANNA DORSEY Attending Unavailable NASH, BIA F Referring Unavailable NASH, BIA F Primary Care Unavailable Ileana Cortes MD Unavailable ROSE VELASQUEZ Attending Unavailable HOOVERMANDI RUIZ Referring Unavailable HOOVERMANDI Attending Unavailable HOOVERMANDI RUIZ Referring Unavailable Jacob Viveros Unavailable Unavailable NASH, BIA F Primary Care Unavailable JUAN TAMEZ Attending Unavailable JUAN TAMEZ Attending Unavailable JUAN TAMEZ Referring Unavailable NASH, BIA F Primary Care Unavailable GUNJAMAL, JOHN Referring Unavailable NASH, BIA F Primary Care Unavailable YOANNA DORSEY Referring Unavailable NASH, BIA Mccormick Primary Care Unavailable GIEDRAITIS V, ANDRIUS Referring Unavailabl e NASH, BIA Mccormick Primary Care Unavailable Giedraitis , Andrius Vickiytsb Attending Unavailable Giedraitis MD, Andrius Vytautas Attending Unavailable Giedraitis MD, Andrius Vytautas Attending Unavailable Giedraitis MD, Andrius Vytautas Attending Unavailable Giedraitis MD, Andrius Vytautas Attending Unavailable Giedraitis MD, Andrius Vytautas Attending Unavailable Giedraitis MD, Andrius Vytautas Attending Unavailable Giedraitis , Andrius Vytautadyana Attending Unavailable Nash , Bia Mccormick Unavailable RYAN DALLAS Attending Unavailable NASH, BIA F Referring Unavailable NASH, BIA Mccormick Primary Care Unavailable JOHN JOHNSON Attending Unavailable NASH, BIA F Referring Unavailable NASH, BIA Mccormick Primary Care Unavailable SNYDER, RIA Attending Unavailable NASH, BIA [...] NASH, BIA F Attending Unavailable NASH, BIA Mccormick Attending Unavailable TRACI FLORES Attending Unavailable NASH, BIA F Attending Unavailable NASH, BIA F Referring Unavailable NASH, BIA F Attending Unavailable NASH, BIA F Attending Unavailable SANTO CHRISTIANSON Attending Unavailable NASH, BIA F Attending Unavailable Allergies Allergy Classification Reported Allergen(s) Allergy Type Date of Onset Reaction(s) Facility Amoxicillin / Clavulanate (1 source) Amoxicillin / Clavulanate Drug Allergy 08-14-20 11 Rash [facility] Aspartame (1 source) Aspartame Drug Allergy 02-13-20 17 Other: See Comments [facility] Clavulanate (1 source) Clavulanate Drug Allergy 02-13-20 17 Rash [facility] egg white (chicken) allergenic extract (1 source) egg white (chicken) allergenic extract Drug Allergy 08-14-20 11 Swelling [facility] Lincomycin (1 source) Lincomycin Drug Allergy 11-04-20 16 Rash [facility] NSAIDs (1 source) oxaprozin Drug Allergy 11-04-20 16 Rash [facility] Penicillins (antibiotic) (1 source) Penicillins Drug Allergy 11-04-20 16 [facility] (19 sources) Adhesive agent; Translations: [ADHESIVE] Propensity to adverse reactions to drug 11-04-20 16 Other: See Comments [facility] (20 sources) Amoxicillin / Clavulanate; Translations: [AMOXICILLIN-POT CLAVULANATE] Drug Allergy 08-14-20 11 Rash [facility] (18 sources) Aspartame; Translations: [ASPARTAME] Drug Allergy 02-13-20 17 Other (See Comments), Other: See Comments [facility] (20 sources) chicken allergenic extract; Translations: [POULTRY] Drug Allergy 03-02-20 23 [facility] (20 sources) Clavulanate; Translations: [CLAVULANIC ACID] Drug Allergy 02-13-20 17 Rash [facility] (19 sources) Clindamycin; Translations: [LINCOSAMIDES] Propensity to adverse reactions to drug 02-13-20 17 Anaphylaxis [facility] (12 sources) egg shell membrane; Translations: [EGGSHELL MEMBRANE] Propensity to adverse reactions to drug 11-04-20 16 [facility] (20 sources) Indomethacin; Translations: [INDOMETHACIN] Drug Allergy 05-02-20 21 Hypotension, Unknown [facility] (20 sources) Lincomycin; Translations: [LINCOMYCIN] Drug Allergy 08-14-20 11 Anaphylaxis, Rash [facility] (18 sources) oxaprozin; Translations: [OXAPROZIN] Drug Allergy 11-04-20 16 Rash [facility] (18 sources) Penicillins; Translations: [PENICILLINS] Propensity to adverse reactions to drug 11-04-20 16 Rash [facility] (20 sources) Sulfamethoxazole / Trimethoprim; Translations: [SULFAMETHOXAZOLE-T RIMETHOPRIM] Drug Allergy 10-22-20 23 [facility] (20 sources) Sulfonamides (Antibiotic); Translations: [SULFA (SULFONAMIDE ANTIBIOTICS)] Propensity to adverse reactions to drug 11-11-20 [facility] (20 sources) Clemizole; Translations: [CLEMIZOLE] Propensity to adverse reactions to drug 02-13-20 [facility] (19 sources) Influenza Virus Vaccines; Translations: [INFLUENZA VIRUS VACCINES] Propensity to adverse reactions to drug 02-13-20 [facility] (20 sources) Other; Translations: [OTHER] Propensity to adverse reactions 02-13-20 Other (See Comments), Swelling [facility] (20 sources) Aspartame Drug Allergy 02-13-20 17 Unknown [facility] (20 sources) Influenza Vaccines Drug Allergy 06-04-20 23 [facility] (20 sources) Lincomycin Drug Allergy 12-01-19 22 Unknown [facility] (20 sources) Penicillins Drug Allergy 06-04-20 23 Rash [facility] (6 sources) Eggs Or Egg-Derived Products Drug Allergy 08-14-20 11 Swelling, Unknown [facility] (20 sources) Wound Dressing Adhesive Drug Allergy 06-04-20 23 [facility] (6 sources) egg white (chicken) allergenic extract; Translations: [EGG WHITE] Drug Allergy 08-14-20 11 Swelling [facility] (20 sources) Egg-Derived Products Drug Allergy 08-14-20 11 Swelling, Unknown [facility] Medications Current Medications Medication Drug Class(es) Dates Sig (Normalized) Sig (Original) acetaminophen 500 mg oral tablet (15 sources) take 2 tablets by mouth every [...] mouth three times daily as needed. Active acetaminophen 250 mg / aspirin 250 mg / caffeine 65 mg oral tablet (9 sources) Platelet Aggregation Inhibitor, Nonsteroidal Anti-inflammatory Drug, Central Nervous System Stimulant, Methylxanthine take 1 tablet by mouth every six hours as needed for headache yivftju-jeypvrwealygr-jneecmkl (EXCEDRIN MIGRAINE) 250-250-65 mg per tablet Take 1 tablet by mouth every 6 (six) hours as needed for headaches. Active acetaminophen 325 mg / dichloralphenazone 100 mg / isometheptene 65 mg oral capsule (6 sources) take 1 capsule by mouth every six hours as needed acetaminophen-dichloralphenazone -isometheptene (MIDRIN) 65-100-325 mg per capsule 1 capsule four times daily as needed. Active [id number] 200 actuat albuterol 0.09 mg/actuat metered dose inhaler (20 sources) beta2-Adrenergic Agonist St ar t: take [...] oral tablet (20 sources) Bisphosphonate Start: 01-25-2024 alendronate (F OSAMAX) 70 mg tablet Take 1 tablet (70 mg total) by mouth every 7 days. 01/25/2024 Active Start: 01-25-2024 take 1 tablet by margo th every week alendronate (FOSAMAX) 70 mg tablet Take 70 mg by mouth one time a week. 01/25/2024 Active Start: 12-13-2023 End: 01-07-2024 take [...] 01-24-2018 take 1 tablet by margo th in [...] in the morning. Take before meals. Active cholecalciferol, vitamin D3, (VITAMIN D3) 1,000 units tablet Indications: vitamin D deficiency 1 tablet (1,000 Units total) before breakfast Indications: low vitamin D levels. Active ciprofloxacin 500 mg oral tablet (7 [...] tablet (20 sources) Histamine-2 Receptor Antagonist Start: take 1 tablet by mouth once daily famotidine (PEPCID) 20 mg tablet Take 1 tablet (20 mg total) by mouth nightly. 90 tablet 3 11/29/2023 Active fenofibrate 160 mg oral tablet (20 sources) Peroxisome Proliferator Receptor alpha Agonist Start: End: take 1 tablet by mouth in the morning fenofibrate (Triglide) 160 MG tablet Indications: Hyperlipidemia, unspecified hyperlipidemia type (CMS/HCC) Take 1 tablet (160 mg) by mouth in the morning. 40 tablet 11 11/06/2024 Active Start: 10-26-2023 End: 10-25-2024 take 1 tablet [...] 2 05/02/2024 08/24/2024 Discontinued (Reorder) Start: 01-18-2024 End: 11-29-2025 take 1 tablet by mouth in the morning ferrous sulfate 325 (65 Fe) MG tablet Indications: Anemia, unspecified type Take 1 tablet (325 mg) by mouth in the morning and 1 tablet (325 mg) in the evening. Take with meals. 200 tablet 3 11/29/2024 11/29/2025 Active fexofenadine hydrochloride 180 mg oral tablet (20 sources) Histamine-1 Receptor Antagonist fexofenadine (Ally Allergy) 180 MG tablet 1 (one) time each day at the same time. Active fluticasone propionate 0.05 mg/actuat metered dose nasal spray (20 sources) Corticosteroid Start: 08-23-20 23 End: 08-22-20 24 take 1-2 spray(s) nasal [...] tablet by mouth every morning. 06/01/2023 Active hydroCHLOROthiazide 25 mg / losartan [...] 05/10/2024 Active L.acidoph/B.animalis/B.longu m (FLORAJEN DIGESTION ORAL) (9 sources) take 1 tablet by mouth in the morning L.acidoph/B.animalis/B.longum (FLORAJEN DIGESTION ORAL) Take 1 tablet by mouth in the morning. Active take 1 tablet by margo th in the morning L.acidoph/B.animalis/B.longum (FLORAJEN DIGESTION ORAL) Take 1 tablet by mouth in the morning. 0 Active lactobacillus acidophilus 16 mg oral capsule (20 sources) Lactobacillus (F lorajen Women) capsule as directed Orally Active levothyroxine sodium 0.15 mg oral tablet (20 sources) l-Thyroxine Start: 01-21-2018 End: 12-06-2024 take 1 tablet by mouth in the morning levothyroxine (Synthroid, Levoxyl) 150 MCG tablet 1 tablet in the morning on an empty stomach Orally Mon thru Wed, skip Wednesday02/10/2023 Active Magnesium (20 sources) [...] 500 mg by mouth once daily. Active methocarbamol 500 mg oral tablet (20 sources) Muscle Relaxant Start: 04-19-20 take 2 [...] split tablet multivitamin Multiple Vitamins 0 Active nitrofurantoin, macrocrystals 25 mg / nitrofurantoin, monohydrate 75 mg oral capsule (3 sources) Nitrofuran Antibacterial Start: 12-11-2024 End: 12-18-2024 take 1 capsule by mouth in the morning nitrofurantoin, macrocrystal-monohydrate, (Macrobid) 100 MG capsule Indications: Acute cystitis without hematuria Take 1 capsule (100 mg) by mouth in the morning and 1 capsule (100 mg) before bedtime. Do all this for 7 days. 14 capsule 12/11/2024 12/18/2024 Active Start: 07-14-2024 End: 07-21-2024 take 1 capsule by mouth in the morning nitrofurantoin, macrocrystal-monohydrate , (Macrobid) 100 MG capsule Indications: Acute cystitis without hematuria Take 1 capsule (100 mg) by mouth in the morning and 1 capsule (100 mg) before bedtime. Do all this for 7 days. 14 capsule 07/14/2024 07/21/2024 Active 24 hr oxybutynin chloride 10 mg [...] by mouth. 11/21/2020 Active polyethylene glycol 3350 33581 mg powder for oral solution (3 sources) [...] mouth. 0 Active therapeutic multivitamin (THERAGRAN) tablet (9 sources) take 1 tablet by margo th [...] mouth nightly. 0 03/03/2023 01/07/2024 Discontinued (Reorder) End: 12-08-2024 take 1 tablet by mouth once daily tiZANidine (Zanaflex) 4 MG tablet take 0.5 to 2 tablets by mouth nightly 12/08/2024 Discontinued topiramate 100 mg oral tablet (6 sources) Start: 12-21-2017 topiramate (TOPAMAX) 100 mg tablet 300 mg once daily. 100 mg in the A.M and 200 at bedtime 0 12/21/2017 Active ubrogepant 100 mg oral tablet (20 sources) Start: 01-07-2024 End: 12-08-2024 take 1 tablet by mouth once as [...] Active vitamin b12 1 mg sublingual tablet (18 sources) Vitamin B12 Start: 01-18-2024 End: 08-14-2024 [...] Class(es) Dates Sig (Normalized) Sig (Original) acetaminophen 325 mg / butalbital 50 mg / caffeine 40 mg oral tablet (20 sources) Barbiturate, Central Nervous System Stimulant, Methylxanthine Start: 04-23-2023 End: 12-08-2024 take 1 tablet by mouth every four hours as needed butalbital-acetamino phen-caffeine 50-325-40 MG tablet Take 1 tablet by mouth every 4 (four) hours if needed. 04/23/2023 12/08/2024 Discontinued benzonatate 200 mg oral capsule (2 sources) Non-narcotic Antitussive Start: 11-23-2023 End: 01-07-2024 take 1 capsule by mouth three times daily as needed for cough benzonatate (TESSALON PERLES) 200 mg capsule TAKE 1 CAPSULE BY MOUTH THREE TIMES A DAY NEEDED FOR COUGH FOR UP TO 7 DAYS 0 11/23/2023 01/07/2024 Discontinued meclizine hydrochloride 25 mg oral tablet (20 sources) Antiemetic End: 12-08-2024 meclizine (Antivert) 25 MG tablet Take 25 mg by mouth. 12/08/2024 Discontinued naproxen 250 mg oral tablet (20 sources) Nonsteroidal Anti-inflammatory Drug End: 12-08-2024 naproxen (Naprosyn) 250 MG tablet Take by mouth 12/08/2024 Discontinued NIFEdipine 60 mg osmotic 24 hr extended release oral tablet (20 sources) Dihydropyridine Calcium Channel To Start: 04-23-2023 End: 12-08-2024 take 1 tablet by mouth every twenty-four hours in the morning NIFEdipine XL (Procardia XL) 60 MG 24 hr tablet Take 60 mg by mouth in the morning. 04/23/2023 12/08/2024 Discontinued omeprazole 40 mg delayed release oral capsule (20 sources) Proton Pump Inhibitor Start: 11-29-2023 End: 03-26-2028 take 1 capsule by mouth in the morning omeprazole (PriLOSEC) [address] capsule Indications: Gastroesophageal reflux disease without esophagitis Take 1 capsule (40 mg) by mouth in the morning. 100 capsule 3 08/08/2024 12/12/2024 Discontinued (Reorder) Start: 12-02-2016 omeprazole (MD ILOSEC) 20 mg capsule 20 mg once daily. 12/02/2016 Active pediatric iwvrhxig-hadk-wrg (flintstones complete) tablet,chewable (3 sources) Start: 01-18-2024 End: 02-24-2024 pediatric cbgwbmfk-nwlw-jxe (flintstones complete) tablet,chewable Chew 1 tablet and swallow in the morning. 90 tablet 3 01/18/2024 02/24/2024 Discontinued (Duplicate Listing) Start: 01-18-2024 pediatric mult dabn-vclg-lyl (flintstones complete) tablet,chewable Chew 1 tablet and [...] block, first degree] Onset: 1 06-04-2023 Chronic Deficiency and other anemia (1 source) Anemia; Translations: [Anemia, unspecified] 11-29-2024 Episodic Disorders of lipid metabolism (20 sources) Hyperlipidemia; Translations: [Other hyperlipidemia] Onset: 5 10-26-2017 Chronic E Codes: Fall (1 source) Fall Onset: 4 Esophageal disorders (20 sources) Gastroesophageal reflux disease without esophagitis; Translations: [Gastro-esophageal reflux disease without esophagitis] Onset: 1 09-15-2021 [...] 06-04-2023 Chronic Genitourinary symptoms and ill-defined conditions (7 sources) Urinary frequency; Translations: [Dysuria] Onset: 4 07-10-2024 Episodic Miscellaneous mental health disorders (20 sources) Psychophysiologic insomnia; Translations: [Psychophysiologic insomnia] Onset: 9 12-12-2018 Chronic Mood disorders (20 sources) Depressive disorder; Translations: [Other specified depressive episodes] Onset: 7 02-12-2017 Chronic Mycoses (2 sources) Onychomycosis due to dermatophyte ; Translations: [Tinea unguium] 10-30-2024 Episodic Nausea and vomiting (9 sources) Postoperative nausea and vomiting; Translations: [Nausea with vomiting, unspecified] 06-24-2021 Episodic Nutritional deficiencies (4 sources) Vitamin D deficiency, unspecified; Translations: [Vitamin D deficiency] Onset: 4 12-06-2024 Chronic Osteoarthritis (20 sources) Osteoarthritis of right knee joint; Translations: [Unilateral primary osteoarthritis, right knee] Onset: 1 06-04-2023 Chronic Osteoporosis (20 sources) Senile osteoporosis; Translations: [Age-related osteoporosis without current pathological fracture] Onset: 0 Resolved: 3 06-04-2023 Chronic Other and ill-defined heart disease (9 sources) Diastolic dysfunction; Translations: [Other ill-defined heart diseases] Onset: 1 05-23-2021 Chronic Other and ill-defined heart disease (10 sources) Left ventricular hypertrophy; Translations: [Cardiomegaly] Onset: 1 05-23-2021 Chronic Other and ill-defined heart disease (1 source) Cardiomegaly; Translations: [Cardiomegaly] Onset: 1 Chronic Other and unspecified benign neoplasm (2 sources) Intracranial meningioma; Translations: [Benign neoplasm of cerebral meninges] 04-05-2024 Chronic Other and unspecified benign neoplasm (3 sources) Benign neoplasm of meninges; Translations: [Benign neoplasm of meninges, unspecified] 05-09-2024 Chronic Other and unspecified benign neoplasm (1 source) Benign neoplasm of cranial nerves; Translations: [Benign neoplasm of cranial nerves] Onset: 4 Chronic Other and unspecified benign neoplasm (3 [...] Onset: 9 Chronic Other nervous system disorders (9 sources) Chronic pain syndrome; Translations: [Chronic pain syndrome] Onset: 8 2018 Chronic Other nervous system disorders (9 sources) Carpal tunnel syndrome; Translations: [Carpal tunnel syndrome, unspecified upper limb] Onset: 1 10-28-2021 Chronic Other nervous system disorders (1 source) Polyneuropathy; Translations: [Polyneuropathy, unspecified] 01-07-2024 Chronic Other nervous system disorders (1 source) Mass lesion of brain; Translations: [Other specified disorders of brain] 03-28-2024 Chronic Other nervous system disorders (2 sources) Polyneuropathy, unspecified; Translations: [Polyneuropathy, unspecified] Onset: 4 Chronic Other nervous system disorders (20 sources) Lesion of brain; Translations: [Disorder of [...] [Hypothyroidism, unspecified] Onset: 9 03-02-2023 Chronic Unclassified (15 sources) Patient on antidepressant monitoring plan Onset: 4 08-08-2024 Unclassified (1 source) Low back pain, unspecified; Translations: [Low back pain, unspecified] Onset: 5 Unclassified (1 source) EMS Onset: 4 Unclassified (1 source) Blood Pressure Check Onset: 4 Urinary tract infections (3 sources) Acute cystitis; Translations: [Acute cystitis without hematuria] 07-14-2024 Episodic Past or Other Problems Problem Classification Problem Date Documented Da te Episodic/Chronic Acute and unspecified renal failure (9 sources) Acute injury of kidney; Translations: [Acute kidney failure, unspecified] Onset: 03-02-2023 03-02-2023 Episodic Acute cerebrovascular disease (9 sources) Hematoma of subdural space of neuraxis; [...] Resolved: 10-24-2023 12-12-2018 Chronic Malaise and fatigue (13 sources) Asthenia; Translations: [Weakness] Onset: 11-04-2016 11-04-2016 Episodic Mood disorders (20 sources) Mood disorders Onset: 04-23-2023 Resolved: 12-06-2023 04-23-2023 Other circulatory disease (9 sources) Low blood pressure; Translations: [Hypotension, unspecified] Onset: 03-02-2023 03-02-2023 Episodic Other connective tissue disease (20 sources) Bilateral trochanteric bursitis; Translations: [Trochanteric bursitis, right hip] Onset: 11-03-2017 11-03-2017 Episodic Other connective tissue disease (20 sources) Impingement syndrome of right shoulder region; Translations: [Impingement syndrome of right shoulder] Onset: 08-14-2011 06-22-2018 Episodic Other connective tissue disease (10 sources) Muscle spasm of cervical muscle of neck; Translations: [Other muscle spasm] Onset: 05-05-2019 05-05-2019 Episodic Other connective tissue disease (9 sources) Nocturnal muscle spasm ; Translations: [Other [...] Onset: 02-11-2024 Episodic Other lower respiratory disease (9 sources) Dyspnea; Translations: [Shortness of breath] Onset: 11-06-2019 11-06-2019 Episodic Other lower respiratory disease (20 sources) Nodule of lung; Translations: [Solitary pulmonary nodule] Onset: 02-15-2024 02-15-2024 Episodic Other lower respiratory disease (1 source) Solitary pulmonary nodule; Translations: [Solitary pulmonary nodule] Onset: 02-11-2024 Episodic Other nervous system disorders (20 sources) Impairment of balance; Translations: [Other abnormalities of gait and mobility] Onset: 06-12-2019 06-12-2019 Episodic Other nervous system disorders (2 sources) Other abnormalities of gait and mobility; Translations: [Other abnormalities of gait and mobility] Onset: 06-12-2019 Episodic Other non-traumatic joint disorders (18 sources) Hip pain; Translations: [Pain in right hip] Onset: 10-13-2017 11-03-2017 Episodic Other screening for suspected conditions (not mental disorders or infectious disease) (4 sources) Abnormal level of blood mineral; Translations: [Abnormal level of blood mineral] Onset: 01-07-2024 01-07-2024 Episodic Other upper respiratory disease (9 sources) Chronic hoarseness; Translations: [Dysphonia] Onset: 07-24-2020 [...] Test Name Value Interpretation Reference Range Facility Laboratory - Miscellaneous t estson 12-10-2024 Service comment (Unsp spec) [Interp] [facility] Comment on above: This urine was adolfo zed for the presence of WBC, RBC, bacteria, casts, and other formed elements. Only those elements seen were reported. No Panel Informationon 12-10 Performing Organizat ion Information Site ID: QPT Name: [facility] Address: [address] [place] [address], [address] [place] [id number] Director: Angel Noble MD [facility] Urinalysis complete panel (U )on 12-10-2024 Appearance (U) TURBID Abnormal CLEAR [facility] Bacteria LM.HPF (Urine sed) [#/Area] MANY Abnormal NONE SEEN /HPF [facility] Bilirubin Ql (U) Negative NEGATIVE [facility] Color (U) YELLOW YELLOW [facility] Epithelial cells.squamous LM.HPF (Urine sed) [#/Area] NONE SEEN < OR = 5 /HPF [facility] Glucose Ql (U) Negative NEGATIVE [facility] Hemoglobin Ql (U) TRACE Abnormal NEGATIVE [facility] Hyaline casts (Urine sed) [#/Area] NONE SEEN NONE SEEN /LPF [facility] Interpretation and review of laboratory results Abnormal [facility] Ketones Ql (U) Negative NEGATIVE [facility] Leukocyte esterase Test strip Ql (U) 3+ Abnormal NEGATIVE [facility] Nitrite Ql (U) Negative NEGATIVE [facility] pH (U) 6.5 [pH] 5.0 - 8.0 [facility] Protein Ql (U) TRACE Abnormal NEGATIVE [facility] RBC LM.HPF (Urine sed) [#/Area] 0-2 < OR = 2 /HPF [facility] Specific gravity (U) [Rel density] 1.017 1.001 - 1.035 [facility] WBC LM.HPF (Urine sed) [#/Area] PACKED Abnormal < OR = 5 /HPF [facility] Urinalysis macro (dipstick) panel (U)on 12-08-2024 Bilirubin, UA Negative Negative - 4(70) +++ mg/dL [facility] Blood, UA Positive Negative - 50 Darryl/mcL [facility] Clarity, UA Cloudy [facility] Color, UA Yellow [facility] Glucose, UA Negative Negative - 2000(110) ++++ mg/dL [facility] Interpretation and review of laboratory results Abnormal [facility] Ketones, UA Negative Negative - 160(16) ++++ mg/dL [facility] Leukocytes, UA 4+ Negative - 500+++ Obdulio/mcL [facility] Nitrite, UA Negative Negative - Positive [facility] pH, UA 6 5 - 9 [facility] Protein, UA 2+ Negative - 2000(20) ++++ mg/dL [facility] Spec Grav, UA 1.01 1 - 1.03 [facility] Urobilinogen, UA 0.2 0.2 - 12 mg/dL [facility] XR SPINE LUMBAR 2 OR 3 VWSon 11-28-2024 XR SPINE LUMBAR 2 OR 3 VWS XR SPINE LUMBAR 2 OR 3 VWS History: Pain. Postop follow-up Lumbar spine Comparison: 07/03/2021 Findings: Levoscoliosis in the lumbar spine is appreciated. 6 transpedicular screws are appreciated for fusion of L3-L5. On these images hardware appears well-positioned and free of any acute complication. Lateral fusion masses are noted. Laminectomies of L3 and L4 are observed. Pedicles are intact. Asymmetric loss in disc space height is noted T12/L1 1-2. Presumed gallstone. IMPRESSION: Chronic findings are noted. Finalized by Britney Mendoza MD on 11/28/2024 3:[address] [facility] Tele[facility] (NSCAMN) -- ANGELA RUTH ([id number]) 1945 F Date Time Provider Department 10/04/24 ROSE VELASQUEZ [facility] During your visit today, we recorded the following information about you: Keenan HeartJessica 10/04/2024 3:20 PM Signed General Call Caller : Angela Contact Reason for Call : Did you speak with Dr. Hoover regarding her most recent appt? Patient requesting return call ? 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 Call back number given. 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 My note was forward to Dr. Hoover for review. At this time we recommend follow up and new imaging in 1 year. Rose Velasquez, MSN, MEAT DRESSER, WELDING MACHINE OPERATOR [employer] Certified Nurse Practitioner Allergies As of Date: [...] Encounter Status:Closed by ROSE VELASQUEZ on 10/06/24 [facility] CNOVon 09-26-2024 CNOV Office Visit ([facility] ) -- ANGELA RUTH ([id number]) 1945 F Date Time Provider Department 09/26/24 1:45 PM ROSE VELASQUEZ [facility] During your visit today, we recorded the following information about you: Pulse Blood pressure Weight 91/minute 143/81 67 kg Rose Velasquez APRN.WELDING MACHINE OPERATOR [employer] 09/26/2024 3:27 PM Signed [facility] [place] [facility] NEURO-ONCOLOGY OUTPATIENT CLINIC NOTE [...] bedtime (Pat (more content not included)... Normal [facility] MR Brain WO and W contrast I Von 09-26-2024 IMPRESSION: Stable size of a RIGHT petrous ridge presumed meningioma compared to 03/02/2024. Snap Shearer: ALLYSSA Transcribe Date/Time: Sep 26 2024 2:10P Dictated by : MAUREEN PEARL MD This examination was interpreted and the report reviewed and electronically signed by: MAUREEN PEARL MD on Sep 26 2024 2:14PM [facility] DIVISION OF RADIOLOGY * * *Final Report* * * DATE OF EXAM: Sep 26 2024 12:29PM [facility] 0295 - MRI BRAIN WO/W IVCON / [...] tissues otherwise unremarkable. DIVISION OF RADIOLOGY Provider, [facility] - 09/26/2024 * * *Final Report* * * DATE OF EXAM: Sep 26 2024 12:29PM [facility] 0295 - MRI BRAIN WO/W IVCON / [...] petrous ridge presumed meningioma compared to 03/02/2024. Snap Shearer: PSCB Transcribe Date/Time: Sep 26 2024 2:10P Dictated by : MAUREEN PEARL MD This examination was interpreted and the report reviewed and electronically signed by: MAUREEN PEARL MD on Sep 26 2024 2:14PM EST [facility] Radiology Study observation (narrative) [facility] MR Brain WO and W contrast I VOrdered By: Ccf Provider on 09-26-2024 [facility] MRI BRAIN WO/W IVCONon 09-26 MRI BRAIN WO/W IVCON * * *Final Report* * * DATE OF EXAM: Sep 26 2024 12:29PM [facility] 0295 - MRI BRAIN WO/W IVCON / [...] petrous ridge presumed meningioma compared to 03/02/2024. Snap Shearer[facility] Transcribe Date/Time: Sep 26 2024 2:10P Dictated by : MAUREEN PEARL MD This examination was interpreted and the report reviewed and electronically signed by: MAUREEN PEARL MD on Sep 26 2024 2:14PM EST [id number] Normal [facility] Measure post void residualon 08-29-2024 Volume 56 mL [facility] POCT Urinalysis Auto, W/O Mi croscopyon 08-29-2024 External Poct Urine Blood Negative [facility] External Poct Urine Glucose Negative [facility] External Poct Urine Ketones Negative [facility] External Poct Urine Leukocyte Esterase Negative [facility] External Poct Urine Nitrite Negative [facility] External Poct Urine Ph 7.0 [facility] External Poct Urine Protein Negative [facility] Laboratory - Microbiology an d Antimicrobial susceptibilityon 08-16-2024 SARS-CoV-2 (COVID-19) RNA MICHAEL+probe Ql (Unsp spec) Negative [facility] No Panel Informationon 08-16 FLU A Negative [facility] FLU B Negative [facility] Interpretation and review of laboratory results Normal [facility] XR Thoracic spine 3 Viewson 07-11-2024 EXAM: [...] report is generated using voice recognition reporting (RedShelf). On occasion Power[employer]ribe erroneously drops words from [...] report is generated using voice recognition reporting (RedShelf). On occasion [employer] erroneously drops words from the report or replaces the spoken word with similar sounding words. Please call with any questions/concerns regarding this report.* Dictated and transcribed 07/11/2024/tm This report has been electronically signed and approved by the interpreting radiologist. Electronically Signed Shubham Almodovar II, M.D. 2024-07-11 10:01:04 [facility] [employer] XR Thoracic spine 3 ViewsOrd ered By: Shubham Almodovar on 07-11-2024 [facility] [employer] Work Phone: CALCIUMon 07-10-2024 Calcium [Mass/Vol] 9.5 mg/dL Normal 8.5-10.5 [facility] Comment on above: Performed By: #### 1 3965-9, CBCA, FEPR, THYR, 6-4, 9, 2283-8, IMEL, SPE #### [facility] ([id number]) [address], [address] [place] [address] #### MTHFRS #### [facility] ([id number]) [address] [place] [address]2677 THYROID PROFILEon 07-10-2024 Free T4 [Mass/Vol] 1.24 ng/dL Normal 0.61-1.60 [facility] Comment on above: Performed By: #### 1 3965-9, CBCA, FEPR, THYR, 2275-, 2132-07, 8, IMEL, SPE #### [facility] ([id number]) [address], [address] [place] [address] #### MTHFRS #### [facility] ([id number]) [address] [place] [address] 11041 TSH 1.37 uIU/mL Normal 0.49-4.67 [facility] Comment on above: Performed By: #### 1 3965-9, CBCA, FEPR, THYR, 2275-, 2132-07, 8, IMEL, SPE #### [facility] ([id number]) [address] [facility], [address] [place] [address] #### MTHFRS #### [facility] ([id number]) [address] [place] [address] 11574 Urinalysis macro (dipstick) panel (U)on 07-10-2024 Bilirubin, UA Negative Negative - 4(70) +++ mg/dL [facility] Healthcare Blood, UA Positive Negative - 50 Darryl/mcL [facility] Clarity, UA Cloudy [facility] Color, UA Yellow [facility] Glucose, UA Negative Negative - 1999(110) ++++ mg/dL [facility] Interpretation and review of laboratory results Abnormal [facility] Ketones, UA Negative Negative - 160(16) ++++ mg/dL [facility] Leukocytes, UA 3+ Negative - 500+++ Obdulio/mcL [facility] Nitrite, UA Positive Negative - Positive [facility] pH, UA 6.5 5 - 9 [facility] Protein, UA 2+ Negative - 1999(20) ++++ mg/dL [facility] Spec Grav, UA 1.010 1 - 1.03 [facility] Urobilinogen, UA 1.0 0.2 - 12 mg/dL [facility] Vitamin D+Metabolites [Mass/ Vol]on 07-10-2024 VITAMIN D 25 HYD TOT 78.8 ng/mL Normal 30-100 [facility] Comment on above: Result Comment: Vitamin D status 25 [place] Vitamin D Deficiency <20 ng/mL Insufficiency 20-29 ng/mL Sufficiency 30-100 ng/mL Toxicity >100 ng/mL NOTE: A pediatric reference range has not been established by the cutter head sharpener of this kit. The [place] [employer] recommends a Vitamin D level of = or >20ng/mL in infants and children. Performed By: #### 1 3965-9, CBCA, FEPR, THYR, 2276-4, 2132-9, 2284-8, JOSHUA GONZALEZ #### [facility] ([id number]) [address], [address] [place] [address] #### MTHFRS #### [facility] ([id number]) [address] [place] [address], [place] [address] XR THORACIC SPINE 3 VIEWSon 07-10-2024 XR [...] report is generated using voice recognition reporting (RedShelf). On occasion [employer] erroneously drops words from the report or replaces the spoken word with similar sounding words. Please call with any questions/concerns regarding this report.* Dictated and transcribed 07/11/2024/tm This report has been electronically signed and approved by the interpreting radiologist. Electronically Signed Shubham Almodovar II, M.D. 2024-07-11 10:01:04 Normal Not Available XR Thoracic spine 3 Viewson 07-10-2024 Radiology Study observation (narrative) [facility] CNOVon 04-04-2024 CNOV Office Visit (NSCAMN ) -- ANGELA RUTH ([id number]) 1945 F Date Time Provider Department 04/04/24 [...] Neuro- Oncology Center AND [facility] [place] CC: Patient Care Team: Bia Cao as PCP ([facility]) Ileana Cortes MD as NI Referring Team [...] 6 months with a repeat MRI scan (Reagan/West side preference) and clinic visit with one of our skull base team advance practice providers (Danni/[place] side preference). - follow up with cook vegetable for hearing loss which is unrelated to [...] 1 [facility]: Low: Low risk from testing/treatment Medical [...] Patient is accompanied by her granddaughter (her pile driver operator helper) and great grand daughter). The patient is [...] contrast and shows a 1.2 cm R [employer] contrast-enhancing lesion concerning for either schwannoma or meningioma- no associated mass effect or edema. The patient takes ASA 81 mg daily for cardioprotection per her PCP. The patient has been using a cane for the last 5-6 years. The patient reports that ~6 weeks ago, she walked into her garage door and fell. The patient has not seen an cook vegetable or a vestibular therapist. Past Medical History: [...] Units once (more content not included)... Normal [facility] Russ 03-24-2024 MAHENDRAN Telephone (NIQ) -- ANGELA RUTH ([id number]) 1945 F Date Time Provider Department 03/24/24 NEUROLOGY PROVIDER YOANDY During your visit today, we recorded the following information about you: Shelli Fletcher 03/24/2024 5:01 PM Signed Ref[facility] Reason for visit: consideration of gamma knife for 1.2 cm enhancing lesion at right cerebelloponitine angle with leading differential including vestibular schwannoma and meningioma External records: Sent with referral and pulled from [facility] Triage: Required, forwarded to [facility] by telephone encounter sent to [facility] Scheduling Triage. Financial clearance: Not required to schedule Rose Velasquez APRN.WELDING MACHINE OPERATOR [employer] 03/28/2024 10:00 AM Signed Time Frame: First available Provider: Kiko Landrum Soni Referring: Ileana Cortes MD Images to be requested from [facility] Dx: Right CPA mass Patient: Angela Ruth Address: Angela Ruth [phone] [place] [address] [place] [address] Per Triage: HISTORY OF PRESENT ILLNESS Angela [...] The extracranial soft tissues are unremarkable. Rose Velasquez, MASOOD.WELDING MACHINE OPERATOR [employer] March 28, 2024 Etelvina Trujillo 03/28/2024 10:12 AM Signed Called patient to schedule an appointment. No ans/left message to call the office back. Appointment scheduled: 04/04/2024 10:30 AM (Arrive by 10:15 AM) Mandi Hoover MD [facility] RAMAN Alonso Janette 04/06/2024 10:40 AM Addendum Imaging requested from [employer] [facility]. DOS requested: MRI 03/02/2024 CT Scan [...] Records [3576] Cmt: External referral to [facility] [place] triage [Other] Nurse Triage Call [185] Appointment [186] Primary Visit Diagnosis:Brain mass [G93.89] [G93.89] Prescriptions as of 04/06/2024 - hydrALAZINE (APRESOLINE) 100 mg tablet take 1 tablet by mouth twice a day then MAY TAKE ADDITIONAL (50 M... (REFER (more content not included)... Normal [facility] MR BRAIN W AND WO [...] IS VERY IMPORTANT TO YOUR HEALTH. THE [place] [employer] GUIDELINES RECOMMEND THAT WOMEN 40 [...] 24 ABSOLUTE BASOPHIL 0.0 X10E9/L Normal 0.0-0.2 [facility] Comment on above: Performed By: #### 1 3965-9, CBCA, FEPR, THYR, 2276-4, 2132-9, 2284-8, IMEL, SPE #### [facility] ([id number]) [address] [facility], [address] [place] [address] #### MTHFRS #### [facility] ([id number]) [address] [place] [address] 79252 ABSOLUTE NEUTROPHIL 3.0 X10E9/L Normal 1.5-6.6 [facility] Comment on above: Performed By: #### 1 3965-9, CBCA, FEPR, THYR, 6-4, 2-9, 2284-8, IMEL, SPE #### [facility] ([id number]) [address] [facility], [address] [place] [address] #### MTHFRS #### [facility] ([id number]) [address] [place] [address] 80385 Basophils/100 WBC (Bld) 0.9 % Normal [facility] Comment on above: Performed By: #### 1 3965-9, CBCA, FEPR, THYR, 6-4, 2131-9, 4-8, IMEL, SPE #### [facility] ([id number]) [address] [facility], [address] [place] [address] #### MTHFRS #### [facility] ([id number]) [address] [place] [address] 26456 Eosinophils (Bld) [#/Vol] 0.1 10*3/uL Normal 0.0-0.4 [facility] Comment on above: Performed By: #### 1 3965-9, CBCA, FEPR, THYR, 6-4, 2131-9, 4-8, IMEL, SPE #### [facility] ([id number]) [address] [facility], [address] [place] [address] #### MTHFRS #### [facility] ([id number]) [address] [place] [address] 69131 Eosinophils/100 WBC (Bld) 1.8 % Normal [facility] Comment on above: Performed By: #### 1 3965-9, CBCA, FEPR, THYR, 2276-4, 2132-9, 2284-8, IMEL, SPE #### [facility] ([id number]) [address], [address] [place] [address] #### MTHFRS #### [facility] ([id number]) [address] [place] [address] 64966 Erythrocyte distribution width (RBC) [Ratio] 15.1 % High 11.5-15.0 [facility] Comment on above: Performed By: #### 1 3965-9, CBCA, FEPR, THYR, 2276-4, 2-9, 2284-8, IMEL, SPE #### [facility] ([id number]) [address] [facility], [address] [address] #### MTHFRS #### [facility] ([id number]) [address] [place] [address] 99807 Hematocrit (Bld) [Volume fraction] 39.6 % Normal 35-47 [facility] Comment on above: Performed By: #### 1 3965-9, CBCA, FEPR, THYR, 2276-4, 2-9, 2284-8, IMEL, SPE #### [facility] ([id number]) [address], [address] [place] [address] #### MTHFRS #### [facility] ([id number]) [address] [place] [address] 95167 Hemoglobin (Bld) [Mass/Vol] 13.5 g/dL Normal 11.7-15.5 [facility] Comment on above: Performed By: #### 1 3965-9, CBCA, FEPR, THYR, 2276-4, 2132-9, 2284-8, IMEL, SPE #### [facility] ([id number]) [address], [address] [place] [address] [place] [address] #### MTHFRS #### [facility] ([id number]) [address] [place] [address] 40608 Lymphocytes (Bld) [#/Vol] 1.5 10*3/uL Normal 1.0-3.5 [facility] Comment on above: Performed By: #### 1 3965-9, CBCA, FEPR, THYR, 2276-4, 2-9, 2284-8, IMEL, SPE #### [facility] ([id number]) [address], [address] [place] [address] #### MTHFRS #### [facility] ([id number]) [address] [place] [address] 97900 Lymphocytes/100 WBC (Bld) 28.5 % Normal [facility] Comment on above: Performed By: #### 1 3965-9, CBCA, FEPR, THYR, 6-4, 2131-9, 4-8, IMEL, SPE #### [facility] ([id number]) [address] [facility], [address] [address] #### MTHFRS #### [facility] ([id number]) [address] [place] [address] 52082 MCH (RBC) [Entitic mass] 29.0 pg Normal 27-34 [facility] Comment on above: Performed By: #### 1 3965-9, CBCA, FEPR, THYR, 2276-4, 2-9, 2284-8, IMEL, SPE #### [facility] ([id number]) [address], [address] [place] [address] #### MTHFRS #### [facility] ([id number]) [address] [place] [address] 07618 MCHC (RBC) [Mass/Vol] 34.0 g/dL Normal 32-36 [facility] Comment on above: Performed By: #### 1 3965-9, CBCA, FEPR, THYR, 6-4, 2131-9, 2283-8, IMEL, SPE #### [facility] ([id number]) [address], [address] [place] [address] #### MTHFRS #### [facility] ([id number]) [address] [place] [address] MCV (RBC) [Entitic vol] 85 fL Normal 80-100 [facility] Comment on above: Performed By: #### 1 3965-9, CBCA, FEPR, THYR, 6-4, 2131-, 2284-06, IMEL, SPE #### [facility] ([id number]) [address], [address] [place] [address] #### MTHFRS #### [facility] ([id number]) [address] [place] [address] 06672 Monocytes (Bld) [#/Vol] 0.5 10*3/uL Normal 0-0.9 [facility] Comment on above: Performed By: #### 1 3965-9, CBCA, FEPR, THYR, 6-4, 2132-07, 2283-8, IMEL, SPE #### [facility] ([id number]) [address], [address] [place] [address] #### MTHFRS #### [facility] ([id number]) [address] [place] [address] 98636 Monocytes/100 WBC (Bld) 10.3 % Normal [facility] Comment on above: Performed By: #### 1 3965-9, CBCA, FEPR, THYR, 6-4, 9, 8, IMEL, SPE #### [facility] ([id number]) [address], [address] [place] [address] #### MTHFRS #### [facility] ([id number]) [address] [place] [address] 00160 Neutrophils/100 WBC (Bld) 58.5 % Normal [facility] Comment on above: Performed By: #### 1 3965-9, CBCA, FEPR, THYR, 2276-4, 2132-9, 2284-8, IMEL, SPE #### [facility] ([id number]) [address] [facility], [address] [place] [address] #### MTHFRS #### [facility] ([id number]) [address] [place] [address] 78431 Platelet mean volume (Bld) [Entitic vol] 9.2 fL Normal 7-12 [facility] Comment on above: Performed By: #### 1 3965-9, CBCA, FEPR, THYR, 2276-4, 2-9, 2284-8, IMEL, SPE #### [facility] ([id number]) [address] [facility], [address] [place] [address] #### MTHFRS #### [facility] ([id number]) [address] [place] [address] 91948 Platelets (Bld) [#/Vol] 176 10*3/uL Normal 150-450 [facility] Comment on above: Performed By: #### 1 3965-9, CBCA, FEPR, THYR, 2276-4, 2132-9, 2284-8, IMEL, SPE #### [facility] ([id number]) [address], [address] [place] [address] #### MTHFRS #### [facility] ([id number]) [address] [place] [address] 40495 RBC COUNT 4.65 X10E12/L Normal 3.80-5.20 [facility] Comment on above: Performed By: #### 1 3965-9, CBCA, FEPR, THYR, 6-4, 2131-9, 4-8, IMEL, SPE #### [facility] ([id number]) [address], [address] [place] [address] #### MTHFRS #### [facility] ([id number]) [address] [place] [address] 67415 WBC (Bld) [#/Vol] 5.2 10*3/uL Normal 4.0-11.0 [facility] Comment on above: Performed By: #### 1 3965-9, CBCA, FEPR, THYR, 6-4, 9, 2283-8, IMEL, SPE #### [facility] ([id number]) [address], [address] [place] [address] #### MTHFRS #### [facility] ([id number]) [address] [place] [address] 77878 COMPREHENSIVE METABOLIC PANE Gadiel 02-11-2024 Albumin [Mass/Vol] 4.1 g/dL Normal 3.2-5.3 [facility] Comment on above: Performed By: #### 1 3965-9, CBCA, FEPR, THYR, 6-4, 2132-07, 2283-8, IMEL, SPE #### [facility] ([id number]) [address] [place] [address] #### MTHFRS #### [facility] ([id number]) [address] [place] [address] 62099 ALP [Catalytic activity/Vol] 42 U/L Normal 39-130 [facility] Comment on above: Performed By: #### 1 3965-9, CBCA, FEPR, THYR, 6-4, 9, 4-8, IMEL, SPE #### [facility] ([id number]) [address], [address] [place] [address] #### MTHFRS #### [facility] ([id number]) [address] [place] [address] 11448 ALT [Catalytic activity/Vol] 18 U/L Normal 0-31 [facility] Comment on above: Performed By: #### 1 3965-9, CBCA, FEPR, THYR, 2276-4, 2132-9, 2284-8, IMEL, SPE #### [facility] ([id number]) [address], [address] [place] [address] #### MTHFRS #### [facility] ([id number]) [address] [place] [address] 92110 Anion gap [Moles/Vol] 7 mmol/L Normal 5-15 [facility] Comment on above: Performed By: #### 1 3965-9, CBCA, FEPR, THYR, 2276-4, 2-9, 2284-8, IMEL, SPE #### [facility] ([id number]) [address], [address] [place] [address] #### MTHFRS #### [facility] ([id number]) [address] [place] [address] 36548 AST [Catalytic activity/Vol] 27 U/L Normal 0-41 [facility] Comment on above: Performed By: #### 1 3965-9, CBCA, FEPR, THYR, 2276-4, 2132-9, 2284-8, IMEL, SPE #### [facility] ([id number]) [address], [address] [place] [address] #### MTHFRS #### [facility] ([id number]) [address] [place] [address] 06511 Bilirubin [Mass/Vol] 0.5 mg/dL Normal 0.3-1.2 [facility] Comment on above: Performed By: #### 1 3965-9, CBCA, FEPR, THYR, 2276-4, 2131-9, 4-8, IMEL, SPE #### [facility] ([id number]) [address] [place] [address] #### MTHFRS #### [facility] ([id number]) [address] [place] [address] 22871 Calcium [Mass/Vol] 9.4 mg/dL Normal 8.5-10.5 [facility] Comment on above: Performed By: #### 1 3965-9, CBCA, FEPR, THYR, 2276-4, 2131-9, 4-8, IMEL, SPE #### [facility] ([id number]) [address] [place] [address] #### MTHFRS #### [facility] ([id number]) [address] [place] [address] 19466 Chloride [Moles/Vol] 104 mmol/L Normal 98-109 [facility] Comment on above: Performed By: #### 1 3965-9, CBCA, FEPR, THYR, 2276-4, 2131-9, 2283-8, IMEL, SPE #### [facility] ([id number]) [address], [address] [place] [address] #### MTHFRS #### [facility] ([id number]) [address] [place] [address] 10653 CO2 [Moles/Vol] 25 mmol/L Normal 22-32 [facility] Comment on above: Performed By: #### 1 3965-9, CBCA, FEPR, THYR, 2276-4, 2131-9, 4-8, IMEL, SPE #### [facility] ([id number]) [address] [facility] [address] [place] [address] #### MTHFRS #### [facility] ([id number]) [address] [place] [address] 69535 Creatinine [Mass/Vol] 1.01 mg/dL High 0.40-1.00 [facility] Comment on above: Result Comment: METH OD TRACEABLE TO IDMS STANDARD Performed By: #### 1 3965-9, CBCA, FEPR, THYR, 2276-4, 2131-9, 2284-8, IMEL, SPE #### [facility] ([id number]) [address] [place] [address] #### MTHFRS #### [facility] ([id number]) [address] [place] [address] 96682 GFR/1.73 sq M.predicted among non-blacks MDRD (S/P/Bld) [Vol rate/Area] 57 mL/min/{1.73_m2} Low >59 [facility] Comment on above: Result Comment: Reported eGFR is based on the CKD-EPI 2020 equation that does not use a race coefficient. Performed By: #### 1 3965-9, CBCA, FEPR, THYR, 2276-4, 2-9, 2284-8, IMEL, SPE #### [facility] ([id number]) [address] [address] #### MTHFRS #### [facility] ([id number]) [address] [place] [address] 58544 Glucose [Mass/Vol] 114 mg/dL High 65-99 [facility] Comment on above: Performed By: #### 1 3965-9, CBCA, FEPR, THYR, 2276-4, 2132-9, 2284-8, IMEL, SPE #### [facility] ([id number]) [address] [facility], [address] [place] [address] #### MTHFRS #### [facility] ([id number]) [address] [place] [address] 09001 Potassium [Moles/Vol] 4.2 mmol/L Normal 3.5-5.0 [facility] Comment on above: Performed By: #### 1 3965-9, CBCA, FEPR, THYR, 2276-4, 2-9, 2284-8, IMEL, SPE #### [facility] ([id number]) [address] [facility], [address] [place] [address] #### MTHFRS #### [facility] ([id number]) [address] [place] [address] 55732 Protein [Mass/Vol] 7.2 g/dL Normal 6.0-8.0 [facility] Comment on above: Performed By: #### 1 3965-9, CBCA, FEPR, THYR, 2276-4, 2-9, 4-8, IMEL, SPE #### [facility] ([id number]) [address] [facility], [address] [place] [address] #### MTHFRS #### [facility] ([id number]) [address] [place] [address] 27418 Sodium [Moles/Vol] 136 mmol/L Normal 134-146 [facility] Comment on above: Performed By: #### 1 3965-9, CBCA, FEPR, THYR, 2276-4, 2-9, 2284-8, IMEL, SPE #### [facility] ([id number]) [address], [address] [place] [address] #### MTHFRS #### [facility] ([id number]) [address] [place] [address] 68153 Urea nitrogen [Mass/Vol] 22 mg/dL Normal 5-27 [facility] Comment on above: Performed By: #### 1 3965-9, CBCA, FEPR, THYR, 2276-4, 2132-9, 2284-8, IMEL, SPE #### [facility] ([id number]) [address], [address] [place] [address] #### MTHFRS #### [facility] ([id number]) [address] [place] [address], [place] [address] CT ABDOMEN AND PELVIS W CONT on [...] Mooney MD on 02/11/2024 2:[address] [facility] CT BRAIN WO CONTon CT BRAIN [...] Dharmesh Mittal on 02/11/2024 1:[address] [facility] CT CERVICAL SPINE WO CONTon 02-11-2024 [...] Davis DO on 02/11/2024 1:[address] [facility] CT CHEST W CONTon 02-11-2024 CT [...] with mammographic workup and evaluation is recommended. MicheletMahoaakash H, et al. Guidelines for Management of Incidental Pulmonary Nodules Detected on CT Images: From the Fleischner Society 2017. Radiology. 2017 Jeremi;284(1):228-243. Approved by Resident Mara Thomas DO on 02/11/2024 2:01 PM Ileana Trimble MD have personally reviewed the image(s) and agree with and/or edited the report Finalized by Ileana Ann MD on 02/11/2024 2:[address] [facility] LIPASEon 02-11-2024 Lipase [Catalytic activity/Vol] 38 U/L Normal 17-40 [facility] Comment on above: Performed By: #### 1 3965-9, CBCA, FEPR, THYR, 2276-4, 2132-9, 2284-8, IMEL, SPE #### [facility] ([id number]) [address], [address] [place] [address] #### MTHFRS #### [facility] ([id number]) [address] [place] [address] 21327 CBC AND AUTO DIFFon 01-11-20 24 ABSOLUTE BASOPHIL 0.1 X10E9/L Normal 0.0-0.2 [facility] Comment on above: Performed By: #### 1 3965-9, CBCA, FEPR, THYR, 2276-4, 2131-9, 2284-8, IMEL, SPE #### [facility] ([id number]) [address], [address] [place] [address] #### MTHFRS #### [facility] ([id number]) [address] [place] [address] 85504 ABSOLUTE NEUTROPHIL 2.4 X10E9/L Normal 1.5-6.6 [facility] Comment on above: Performed By: #### 1 3965-9, CBCA, FEPR, THYR, 2276-4, 2-9, 2284-8, IMEL, SPE #### [facility] ([id number]) [address], [address] [place] [address] #### MTHFRS #### [facility] ([id number]) [address] [place] [address] 84873 Basophils/100 WBC (Bld) 1.4 % Normal P [facility] Comment on above: Performed By: #### 1 3965-9, CBCA, FEPR, THYR, 2276-4, 2132-9, 2284-8, IMEL, SPE #### [facility] ([id number]) [address], [address] [place] [address] #### MTHFRS #### [facility] ([id number]) [address] [place] [address] 29289 Eosinophils (Bld) [#/Vol] 0.1 10*3/uL Normal 0.0-0.4 [facility] Comment on above: Performed By: #### 1 3965-9, CBCA, FEPR, THYR, 2276-4, 2131-9, 4-8, IMEL, SPE #### [facility] ([id number]) [address], [facility] [address] [place] [address] #### MTHFRS #### [facility] ([id number]) [address] [place] [address] 05519 Eosinophils/100 WBC (Bld) 2.8 % Normal [facility] Comment on above: Performed By: #### 1 3965-9, CBCA, FEPR, THYR, 6-4, 2131-9, 4-8, IMEL, SPE #### [facility] ([id number]) [address], [facility] [address] [place] [address] #### MTHFRS #### [facility] ([id number]) [address] [place] [address] 20400 Erythrocyte distribution width (RBC) [Ratio] 15.5 % High 11.5-15.0 [facility] Comment on above: Performed By: #### 1 3965-9, CBCA, FEPR, THYR, 6-4, 2131-9, 2284-8, IMEL, SPE #### [facility] ([id number]) [address], [address] [place] [address] #### MTHFRS #### [facility] ([id number]) [address] [place] [address] 15334 Hematocrit (Bld) [Volume fraction] 38.4 % Normal 35-47 [facility] Comment on above: Performed By: #### 1 3965-9, CBCA, FEPR, THYR, 2276-4, 2131-9, 4-8, IMEL, SPE #### [facility] ([id number]) [address], [address] [place] [address] #### MTHFRS #### [facility] ([id number]) [address] [place] [address] 91497 Hemoglobin (Bld) [Mass/Vol] 12.5 g/dL Normal 11.7-15.5 [facility] Comment on above: Performed By: #### 1 3965-9, CBCA, FEPR, THYR, 6-4, 2131-9, 2283-8, IMEL, SPE #### [facility] ([id number]) [address] [facility], [address] [place] [address] #### MTHFRS #### [facility] ([id number]) [address] [place] [address] 51664 Lymphocytes (Bld) [#/Vol] 1.7 10*3/uL Normal 1.0-3.5 [facility] Comment on above: Performed By: #### 1 3965-9, CBCA, FEPR, THYR, 6-4, 2131-9, 2283-8, IMEL, SPE #### [facility] ([id number]) [address] [facility], [address] [place] [address] #### MTHFRS #### [facility] ([id number]) [address] [place] [address] 34298 Lymphocytes/100 WBC (Bld) 35.8 % Normal [facility] Comment on above: Performed By: #### 1 3965-9, CBCA, FEPR, THYR, 6-4, 2131-9, 4-8, IMEL, SPE #### [facility] ([id number]) [address], [address] [place] [address] #### MTHFRS #### [facility] ([id number]) [address] [place] [address] 44816 MCH (RBC) [Entitic mass] 28.5 pg Normal 27-34 [facility] Comment on above: Performed By: #### 1 3965-9, CBCA, FEPR, THYR, 2276-4, 2-9, 2284-8, IMEL, SPE #### [facility] ([id number]) [address], [address] [place] [address] #### MTHFRS #### [facility] ([id number]) [address] [place] [address] 40551 MCHC (RBC) [Mass/Vol] 32.7 g/dL Normal 32-36 [facility] Comment on above: Performed By: #### 1 3965-9, CBCA, FEPR, THYR, 2276-4, 2131-9, 4-8, IMEL, SPE #### [facility] ([id number]) [address], [address] [place] [address] #### MTHFRS #### [facility] ([id number]) [address] [place] [address] 46682 MCV (RBC) [Entitic vol] 87 fL Normal 80-100 [facility] Comment on above: Performed By: #### 1 3965-9, CBCA, FEPR, THYR, 2276-4, 2-9, 2284-8, IMEL, SPE #### [facility] ([id number]) [address], [address] [place] [address] #### MTHFRS #### [facility] ([id number]) [address] [place] [address] 00969 Monocytes (Bld) [#/Vol] 0.5 10*3/uL Normal 0-0.9 [facility] Comment on above: Performed By: #### 1 3965-9, CBCA, FEPR, THYR, 2276-4, 2131-9, 4-8, IMEL, SPE #### [facility] ([id number]) [address], [address] [place] [address] #### MTHFRS #### [facility] ([id number]) [address] [place] [address] 07041 Monocytes/100 WBC (Bld) 10.0 % Normal P [facility] Comment on above: Performed By: #### 1 3965-9, CBCA, FEPR, THYR, 6-4, 2132-07, 8, IMEL, SPE #### [facility] ([id number]) [address] [facility], [address] [place] [address] #### MTHFRS #### [facility] ([id number]) [address] [place] [address] 81721 Neutrophils/100 WBC (Bld) 50.0 % Normal [facility] Comment on above: Performed By: #### 1 3965-9, CBCA, FEPR, THYR, 6-4, 9, 2283-8, IMEL, SPE #### [facility] ([id number]) [address], [address] [place] [address] #### MTHFRS #### [facility] ([id number]) [address] [place] [address] 36394 Platelet mean volume (Bld) [Entitic vol] 9.6 fL Normal 7-12 [facility] Comment on above: Performed By: #### 1 3965-9, CBCA, FEPR, THYR, 2276-4, 2131-9, 2284-8, IMEL, SPE #### [facility] ([id number]) [address], [address] [place] [address] #### MTHFRS #### [facility] ([id number]) [address] [place] [address] 08423 Platelets (Bld) [#/Vol] 194 10*3/uL Normal 150-450 [facility] Comment on above: Performed By: #### 1 3965-9, CBCA, FEPR, THYR, 2276-4, 2-9, 2284-8, IMEL, SPE #### [facility] ([id number]) [address] [facility], [address] [place] [address] #### MTHFRS #### [facility] ([id number]) [address] [place] [address] 48768 RBC COUNT 4.41 X10E12/L Normal 3.80-5.20 [facility] Comment on above: Performed By: #### 1 3965-9, CBCA, FEPR, THYR, 2276-4, 2131-9, 2284-8, IMEL, SPE #### [facility] ([id number]) [address] [facility], [address] [place] [address] #### MTHFRS #### [facility] ([id number]) [address] [place] [address] 05900 WBC (Bld) [#/Vol] 4.9 10*3/uL Normal 4.0-11.0 [facility] Comment on above: Performed By: #### 1 3965-9, CBCA, FEPR, THYR, 2276-4, 2-9, 2284-8, IMEL, SPE #### [facility] ([id number]) [address] [facility], [address] [place] [address] #### MTHFRS #### [facility] ([id number]) [address] [place] [address] 17146 Clinical Pathologyon 024 Clinical Pathology Normal [facility] Comment on above: Result Comment: [facility] [address] [place] [address] Clinical Pathology Report Patient Name:ANGELA RUTH:1945 (Age: 78)Gender:FTaken:4Reported:01/14/2024hysician(s):MARCE Rayo ([phone])Copy To: Rec. #:[id number]: #[id number] Final Pathologic Diagnosis No monoclonal protein identified. Report Electronically Signed Out sb/01/12/2024duncan Alamo MD [place] [address], License number: [id number]. Clinical History G25.0, R26.89, G62.9, R79.0. SERUM IEP SAMPLE NUMBER: [id number] IMMUNOGLOBULIN LEVELS (mg/dL): IgG : 652 IgA : 225 IgM : 64 Free [place]den: 3.45 Free Lambda: 2.10 Free [place]/Lambda ratio: 1.64 Specimen(s) Received Serum IEP Fee Codes(s): 1; 16335-02 FERRITINon 01-11-2024 Ferritin [Mass/Vol] 47 ng/mL Normal 11-307 [facility] Comment on above: Performed By: #### 1 3965-9, CBCA, FEPR, THYR, 2276-4, 2132-9, 2284-8, IMEL, SPE #### [facility] ([id number]) [address] [place] [address], [address] [place] [address] #### MTHFRS #### [facility] ([id number]) [address] [place] [address], [place] [address] Folate [Mass/Vol]on 01-11-20 24 FOLIC ACID >25.0 Normal >5.8 [facility] Comment on above: Result Comment: NEW REFERENCE RANGE Performed By: #### 1 3965-9, CBCA, FEPR, THYR, 2276-4, 9, 8, IMEL, SPE #### [facility] ([id number]) [address], [address] [place] [address] #### MTHFRS #### [facility] ([id number]) [address] [place] [address] 87897 HGB A1C (GLYCO-HGB)on 2023 Glucose [Mass/Vol] 108 mg/dL Normal [facility] Comment on above: Performed By: #### 1 3965-9, CBCA, FEPR, THYR, 6-4, 2132-07, 2284-06, IMEL, SPE #### [facility] ([id number]) [address], [address] [place] [address] #### MTHFRS #### [facility] ([id number]) [address] [place] [address] 12131 HbA1c (Bld) [Mass fraction] 5.4 % Normal 4.4-5.6 [facility] Comment on above: Result Comment: NOTE [...] THYR, 2276-4, 9, 8, IMEL, SPE #### [facility] ([id number]) [address], [address] [place] [address] #### MTHFRS #### [facility] ([id number]) [address] [place] [address] 74093 Homocysteine [Moles/Vol]on 0 01-11-2024 HOMOCYSTEINE 14.23 mcmol/L Normal 3.36-20.44 [facility] Comment on above: Performed By: #### 1 3965-9, CBCA, FEPR, THYR, 2276-4, 2132-9, 2284-8, IMEL, SPE #### [facility] ([id number]) [address] [place] [address], [address] [place] [address] #### MTHFRS #### [facility] ([id number]) [address] [place] [address] 43386 IMMUNOELECTROPHORESIS FOR TH ERAPY MONITORINGon 01-11-2024 FREE IRASEMA/LAMBD RATIO 1.64 Normal 0.26-1.65 [facility] Comment on above: Performed By: #### 1 3965-9, CBCA, FEPR, THYR, 6-4, 2131-9, 4-8, IMEL, SPE #### [facility] ([id number]) [address] [place] [address], [address] [place] [address] #### MTHFRS #### [facility] ([id number]) [address] [place] [address] 73127 FREE KAPPA LT CHAINS 3.45 mg/dL High 0.33-1.94 [facility] Comment on above: Performed By: #### 1 3965-9, CBCA, FEPR, THYR, 6-4, 2-9, 2284-8, IMEL, SPE #### [facility] ([id number]) [address] [place] [address], [address] [place] [address] #### MTHFRS #### [facility] ([id number]) [address] [place] [address] 89482 FREE LAMBDA LT CHAINS 2.10 mg/dL Normal 0.57-2.63 [facility] Comment on above: Performed By: #### 1 3965-9, CBCA, FEPR, THYR, 2276-4, 2-9, 2284-8, IMEL, SPE #### [facility] ([id number]) [address], [address] [place] [address] #### MTHFRS #### [facility] ([id number]) [address] [place] [address] IgA [Mass/Vol] 225 mg/dL Normal 68-378 [facility] Comment on above: Performed By: #### 1 3965-9, CBCA, FEPR, THYR, 2276-4, 2131-9, 4-8, IMEL, SPE #### [facility] ([id number]) [address] [facility], [address] [place] [address] #### MTHFRS #### [facility] ([id number]) [address] [place] [address] 55202 IgG [Mass/Vol] 652 mg/dL Normal 635-1741 [facility] Comment on above: Performed By: #### 1 3965-9, CBCA, FEPR, THYR, 2276-4, 2131-9, 4-8, IMEL, SPE #### [facility] ([id number]) [address], [address] [place] [address] #### MTHFRS #### [facility] ([id number]) [address] [place] [address] 62116 IgM [Mass/Vol] 64 mg/dL Normal 45-281 [facility] Comment on above: Performed By: #### 1 3965-9, CBCA, FEPR, THYR, 2276-4, 2-9, 2284-8, IMEL, SPE #### [facility] ([id number]) [address], [address] [place] [address] #### MTHFRS #### [facility] ([id number]) [address] [place] [address] 07745 IMMUNE PROFILE INTERP SEE SEPARATE REPORT Normal [facility] Comment on above: Performed By: #### 1 3965-9, CBCA, FEPR, THYR, 2276-4, 2-9, 2284-8, IMEL, SPE #### [facility] ([id number]) [address] [facility], [address] [place] [address] #### MTHFRS #### [facility] ([id number]) [address] [place] [address] 54951 IRON PROFILEon 01-11-2024 Iron [Mass/Vol] 100 ug/dL Normal 50-170 [facility] Comment on above: Performed By: #### 1 3965-9, CBCA, FEPR, THYR, 6-4, 2131-9, 4-8, IMEL, SPE #### [facility] ([id number]) [address] [facility], [address] [place] [address] #### MTHFRS #### [facility] ([id number]) [address] [place] [address] 28192 IRON BINDING 438 ug/dL High 250-425 [facility] Comment on above: Performed By: #### 1 3965-9, CBCA, FEPR, THYR, 2276-4, 2131-9, 2284-8, IMEL, SPE #### [facility] ([id number]) [address] [facility], [address] [place] [address] #### MTHFRS #### [facility] ([id number]) [address] [place] [address] 18803 IRON SATURATION 23 % SATURATION Normal 15-50 [facility] Comment on above: Performed By: #### 1 3965-9, CBCA, FEPR, THYR, 2276-4, 2132-9, 2284-8, IMEL, JOSHUA #### [facility] ([id number]) [address] [facility], [address] [place] [address] #### MTHFRS #### [facility] ([id number]) [address] [place] [address], [place] [address] MTHFRon 01-11-2024 MTHFR INTERPRETATION SEE NOTE Normal [facility] Comment on above: Result Comment: NOTE Indication for testing: Determine genetic contribution to hyperhomocysteinemia. Negative: Neither of the common MTHFR gene variants tested, c.665C>T (previously designated C677T) and c.1286A>C (previously designated I2254Q), were detected. Other causes of elevated homocysteine [...] has an effect on cardiovascular disease. The [employer] Practice Guidelines indicate [...] a contributing factor to hyperhomocysteinemia. Variants Tested: c.665C>T(p.Xro819Woo) and c.1286A>C(p.Qbv517Djq). (legacy names C677T and S9170E, respectively). Clinical Sensitivity: Undefined; hyperhomocysteinemia is caused [...] developed and its performance characteristics determined by [employer]. It has not been cleared or approved by the [place] Food and Drug Administration. This test was performed in a CLIA certified laboratory and is intended for clinical purposes. Counseling and informed consent are recommended for genetic testing. Consent forms are available online. Performed By: [employer] [address] [place] [address] [place] Guide: Jacob Sparks MD, PhD CLIA Number: [id number] Performed By: #### 1 3965-9, CBCA, FEPR, THYR, 2276-02, 2132-07, 2284-06, IMEL, SPE #### [facility] ([id number]) [address] [facility], [address] [place] [address] #### MTHFRS #### [facility] ([id number]) [address] [place] [address] 67131 MTHFR MUT [id number] Negative Normal [facility] Comment on above: Performed By: #### 1 3965-9, CBCA, FEPR, THYR, 2276-02, 2132-07, 2284-06, IMEL, SPE #### [facility] ([id number]) [address], [address] [place] [address] #### MTHFRS #### [facility] ([id number]) [address] [place] [address] 76329 MTHFR MUT C665CT Negative [facility] Comment on above: Performed By: #### 1 3965-9, CBCA, FEPR, THYR, 2276-02, 2132-07, 2284-06, IMEL, SPE #### [facility] ([id number]) [address], [address] [place] [address] #### MTHFRS #### [facility] ([id number]) [address] [place] [address] MTHFR PCR SPECIMEN WHOLE BLOOD Normal [facility] Comment on above: Performed By: #### 1 3965-9, CBCA, FEPR, THYR, 6-4, 2131-9, 4-8, IMEL, SPE #### [facility] ([id number]) [address] [place] [address], [address] [place] [address] #### MTHFRS #### [facility] ([id number]) [address] [place] [address]1978 Methylmalonate [Moles/Vol]on 01-11-2024 MMA QN 0.14 umol/L Normal <=0.40 [facility] Comment on above: Result Comment: NOTE This test was developed and its performance characteristics determined by [facility] [place] ([facility] It has not been cleared or approved by the FDA. [facility] is regulated under CLIA as qualified to perform high-complexity testing. This test is used for clinical purposes. It should not be regarded as investigational or for research. Test Performed By: [facility] [address] [place] [address] [place] Guide: Berry Larsen III, M.D. CLIA #[id number] Performed By: #### 1 3965-9, CBCA, FEPR, THYR, 6-4, 2132-07, 8, IMEL, SPE #### [facility] ([id number]) [address], [address] [place] [address] #### MTHFRS #### [facility] ([id number]) [address] [place] [address] 97013 SERUM PROTEIN ELECTROPHORESI Son 01-11-2024 Albumin [Mass/Vol] 4.0 g/dL Normal 3.4-5.3 [facility] Comment on above: Performed By: #### 1 3965-9, CBCA, FEPR, THYR, 2276-4, 2131-9, 4-8, IMEL, SPE #### [facility] ([id number]) [address], [address] [place] [address] #### MTHFRS #### [facility] ([id number]) [address] [place] [address] 22654 ALPHA 1 GLOBULIN 0.3 g/dL Normal 0.1-0.4 [facility] Comment on above: Performed By: #### 1 3965-9, CBCA, FEPR, THYR, 6-4, 2131-9, 2283-8, IMEL, SPE #### [facility] ([id number]) [address], [address] [place] [address] #### MTHFRS #### [facility] ([id number]) [address] [place] [address] 22829 ALPHA 2 GLOBULIN 0.8 g/dL Normal 0.4-1.1 [facility] Comment on above: Performed By: #### 1 3965-9, CBCA, FEPR, THYR, 6-4, 2131-, 2283-8, IMEL, SPE #### [facility] ([id number]) [address], [address] [place] [address] #### MTHFRS #### [facility] ([id number]) [address] [place] [address] 88670 BETA GLOBULIN 0.8 g/dL Normal 0.5-1.2 [facility] Comment on above: Performed By: #### 1 3965-9, CBCA, FEPR, THYR, 6-4, 9, 2283-8, IMEL, SPE #### [facility] ([id number]) [address], [address] [place] [address] #### MTHFRS #### [facility] ([id number]) [address] [place] [address] 28589 GAMMA GLOBULIN 0.7 g/dL Normal 0.5-1.6 [facility] Comment on above: Performed By: #### 1 3965-9, CBCA, FEPR, THYR, 2276-4, 2132-9, 2284-8, IMEL, SPE #### [facility] ([id number]) [address], [address] [place] [address] #### MTHFRS #### [facility] ([id number]) [address] [place] [address]376 PROT. ELECTROPHORESIS INTERP Unremarkable protein distribution, no monoclonal bands. Normal [facility] Comment on above: Performed By: #### 1 3965-9, CBCA, FEPR, THYR, 2276-4, 2-9, 2284-8, IMEL, SPE #### [facility] ([id number]) [address] [place] [address] #### MTHFRS #### [facility] ([id number]) [address] [place] [address]32 Protein [Mass/Vol] 6.5 g/dL Normal 6.0-8.0 [facility] Comment on above: Performed By: #### 1 3965-9, CBCA, FEPR, THYR, 2276-4, 2132-9, 2284-8, IMEL, SPE #### [facility] ([id number]) [address] [place] [address] #### MTHFRS #### [facility] ([id number]) [address] [place] [address] 98357 THYROID PROFILEon 01-11-2024 Free T4 [Mass/Vol] 1.09 ng/dL Normal 0.61-1.60 [facility] Comment on above: Performed By: #### 1 3965-9, CBCA, FEPR, THYR, 2276-4, 2132-9, 2284-8, IMEL, SPE #### [facility] ([id number]) [address] [place] [address] #### MTHFRS #### [facility] ([id number]) [address] [place] [address] TSH 0.60 uIU/mL Normal 0.49-4.67 [facility] Comment on above: Performed By: #### 1 3965-9, CBCA, FEPR, THYR, 2276-4, 2132-9, 2284-8, IMEL, SPE #### [facility] ([id number]) [address] [place] [address] #### MTHFRS #### [facility] ([id number]) [address] [place] [address] VITAMIN B12on 01-11-2024 Cobalamin (Vitamin B12) [Mass/Vol] 407 pg/mL Normal 180-914 [facility] Comment on above: Performed By: #### 1 3965-9, CBCA, FEPR, THYR, 2276-4, 2132-9, 2284-8, IMEL, SPE #### [facility] ([id number]) [address] [place] [address] #### MTHFRS #### [facility] ([id number]) [address] [place] [address] Abdomen/Pelvis w + w/o Co ntraston [...] by Felix Dominguez on 12/07/2022 1159 Normal [facility] XR HAND LEFT (MIN 3 VIEWS)on 11-07-2022 [...] Matt Cowart MD 11/07/22 Final result Normal [facility] XR HAND LEFT (MIN 3 VIEWS) [...] Matt Cowart MD 11/07/22 Final result Normal [facility] XR Chest 2 Views*on 09-10-20 XR [...] by Bartolome Monson on 09/10/2022 1507 Normal [facility] Complete Blood Count with Au to Diffon 12-11-2021 Basophils (Bld) [#/Vol] 0.07 10*3/uL Normal 0.00-0.20 [facility] Comment on above: Performed By: #### C MP, CBCAD #### [facility] [address], [place] [id number] Basophils/100 WBC (Bld) 0.9 % Normal [facility] Comment on above: Performed By: #### C MP, CBCAD #### [facility] [address], [place] [id number] Eosinophils (Bld) [#/Vol] 0.17 10*3/uL Normal 0.02-0.50 [facility] Comment on above: Performed By: #### C MP, CBCAD #### [facility] [address], [place] [id number] Eosinophils/100 WBC (Bld) 2.3 % Normal [facility] Comment on above: Performed By: #### C MP, CBCAD #### [facility] [address], [place] [id number] Erythrocyte distribution width (RBC) [Ratio] 16.4 % High 11.0-15.0 [facility] Comment on above: Performed By: #### C MP, CBCAD #### [facility] [address], [place] [id number] Hematocrit (Bld) [Volume fraction] 42.9 % Normal 35.0-47.0 [employer] Comment on above: Performed By: #### C MP, CBCAD #### [facility] [address], [place] [id number] Hemoglobin (Bld) [Mass/Vol] 13.5 g/dL Normal 11.6-15.5 [facility] Comment on above: Performed By: #### C MP, CBCAD #### [facility] [address] [facility] [place] [id number] Lymphocytes (Bld) [#/Vol] 2.7 10*3/uL Normal 0.9-3.9 [facility] Comment on above: Performed By: #### C MP, CBCAD #### [facility] [address], [place] [id number] Lymphocytes/100 WBC (Bld) 36.1 % Normal [facility] Comment on above: Performed By: #### C MP, CBCAD #### [facility] [address], [place] [id number] MCH (RBC) [Entitic mass] 27.7 pg Normal 27.0-33.0 [facility] Comment on above: Performed By: #### C MP, CBCAD #### [facility] [address], [place] [id number] MCHC (RBC) [Mass/Vol] 31.5 g/dL Low 32.0-36.0 [facility] Comment on above: Performed By: #### C MP, CBCAD #### [facility] [address], [place] [id number] MCV (RBC) [Entitic vol] 88 fL Normal 80-100 [facility] Comment on above: Performed By: #### C MP, CBCAD #### [facility] [address], [place] [id number] Monocytes (Bld) [#/Vol] 0.8 10*3/uL Normal 0.2-0.9 [facility] Comment on above: Performed By: #### C MP, CBCAD #### [facility] [address], [place] [id number] Monocytes/100 WBC (Bld) 10.8 % Normal [facility] Comment on above: Performed By: #### C MP, CBCAD #### [facility] [address], [place] [id number] Neutrophils (Bld) [#/Vol] 3.7 10*3/uL Normal 1.5-7.8 [facility] Comment on above: Performed By: #### C MP, CBCAD #### [facility] [address], [place] [id number] Neutrophils/100 WBC (Bld) 49.2 % Normal [facility] Comment on above: Performed By: #### C MP, CBCAD #### [facility] [address], [place] [id number] Platelet mean volume (Bld) [Entitic vol] 11.00 fL Normal 7.50-12.50 [facility] Comment on above: Performed By: #### C MP, CBCAD #### [facility] [address], [place] [id number] Platelets (Bld) [#/Vol] 246 10*3/uL Normal 140-400 [facility] Comment on above: Performed By: #### C MP, CBCAD #### [facility] [address], [place] [id number] RBC (Bld) [#/Vol] 4.88 10*6/uL Normal 3.90-5.20 [facility] Comment on above: Performed By: #### C MP, CBCAD #### [facility] [address], [place] [id number] RDW-SD 53.1 fL High 37.0-50.0 [facility] Comment on above: Performed By: #### C MP, CBCAD #### [facility] [address], [place] [id number] WBC (Bld) [#/Vol] 7.5 10*3/uL Normal 3.8-11.0 [facility] Comment on above: Performed By: #### C MP, CBCAD #### [facility] [address], [place] [id number] Comprehensive Metabolic [facility] 12-11-2021 Albumin [Mass/Vol] 4.2 g/dL Normal 3.6-5.1 [facility] Comment on above: Performed By: #### C MP, CBCAD #### [facility] [address], [place] [id number] Albumin/Globulin [Mass ratio] 1.7 {ratio} Normal 1.0-2.5 [facility] Comment on above: Performed By: #### C MP, CBCAD #### [facility] [address], [place] [id number] ALP [Catalytic activity/Vol] 71 U/L Normal 35-119 [facility] Comment on above: Performed By: #### C MP, CBCAD #### [facility] [address], [place] [id number] ALT [Catalytic activity/Vol] 12 U/L Normal 6-33 [facility] Comment on above: Result Comment: 10/22 Female reference range changed. Performed By: #### C LG, CBCAD #### [facility] [address], [place] [id number] Anion gap [Moles/Vol] 18 mmol/L Normal 12-20 [facility] Comment on above: Result Comment: Effe ctive 11/27/2019 reference range changed. Performed By: #### C LG, CBCAD #### [facility] [address], [place] [id number] AST [Catalytic activity/Vol] 15 U/L Normal 9-34 [facility] Comment on above: Performed By: #### C LG, CBCAD #### [facility] [address], [place] [id number] Bilirubin [Mass/Vol] 0.33 mg/dL Normal 0.30-1.20 [facility] Comment on above: Performed By: #### C MP, CBCAD #### [facility] [address], [place] [id number] BUN/CREA 35 Ratio High 6-22 [facility] Comment on above: Performed By: #### C MP, CBCAD #### [facility] [address], [place] [id number] Calcium [Mass/Vol] 9.4 mg/dL Normal 8.6-10.2 [employer] Comment on above: Performed By: #### C MP, CBCAD #### [facility] [address] [facility] [place] [id number] Chloride [Moles/Vol] 106 mmol/L Normal 98-107 [facility] Comment on above: Performed By: #### C MP, CBCAD #### [facility] [address] [place] [id number] CO2 [Moles/Vol] 24 mmol/L Normal 20-31 [facility] Comment on above: Performed By: #### C MP, CBCAD #### [facility] [address] [facility] [place] [id number] Creatinine [Mass/Vol] 0.9 mg/dL Normal 0.6-1.4 [facility] Comment on above: Performed By: #### C MP, CBCAD #### [facility] [address] [facility] [place] [id number] eGFRAA 70 mL/min/1.73m2 Normal >60 [facility] Comment on above: Performed By: #### C MP, CBCAD #### [facility] [address] [place] [id number] eGFRNAA 58 mL/min/1.73m2 Low >60 [facility] Comment on above: Performed By: #### C MP, CBCAD #### [facility] [address] [facility] [place] [id number] Globulin (S) [Mass/Vol] 2.5 g/dL Normal 1.9-3.7 [facility] Comment on above: Performed By: #### C MP, CBCAD #### [facility] [address] [facility] [place] [id number] Glucose [Mass/Vol] 84 mg/dL Normal 65-99 [employer] Comment on above: Result Comment: For FASTING Glucose --- ADA reference ranges: Normal 65-99 mg/dl Prediabetes 100-125 Diabetes >/= 126 Performed By: #### C MP, CBCAD #### [facility] [address] [facility] [place] [id number] Potassium [Moles/Vol] 4.3 mmol/L Normal 3.5-5.5 [facility] Comment on above: Performed By: #### C MP, CBCAD #### [facility] [address], [place] [id number] Protein [Mass/Vol] 6.7 g/dL Normal 6.1-8.1 [employer] Comment on above: Performed By: #### C MP, CBCAD #### [facility] [address], [place] [id number] Sodium [Moles/Vol] 143 mmol/L Normal 135-146 [employer] Comment on above: Performed By: #### C MP, CBCAD #### [facility] [address], [place] [id number] Urea nitrogen [Mass/Vol] 33 mg/dL High 7-25 [facility] Comment on above: Performed By: #### C MP, CBCAD #### [facility] [address], [place] [id number] Calciumon 06-20-2019 Calcium [Mass/Vol] 10.0 mg/dL Normal 8.4-10.2 [facility] Comment on above: Performed By: #### 1 030, 1035, 4500, 4510, 4520, 4581 #### [facility] Unless Otherwise Noted [address] [address] / COLA #4724/CLIA # [id number] Creatinineon 06-20-2019 Creatinine [Mass/Vol] 0.9 mg/dL Normal 0.5-1.0 [facility] Comment on above: Performed By: #### 1 030, 1035, 4500, 4510, 4520, 4581 #### [facility] Unless Otherwise Noted [address] [address] / COL[facility] #4724/CLIA # [id number] Creatinine [Mass/Vol] 74.8 Kg Normal [facility] Comment on above: Performed By: #### 1 030, 1035, 4500, 4510, 4520, 4581 #### [facility] Unless Otherwise Noted [address] [address] / [facility] #4724/CLIA # [id number] Creatinine [Mass/Vol] 64.8 ml/m1.73 Normal [facility] Comment on above: Performed By: #### 1 030, 1035, 4500, 4510, 4520, 4581 #### [facility] Unless Otherwise Noted [address] [address] / COLA #4724/CLIA # [id number] Creatinine [Mass/Vol] 65.1 ml/m1.73 Normal [facility] Comment on above: Performed By: #### 1 030, 1035, 4500, 4510, 4520, 4581 #### [facility] Unless Otherwise Noted [address] [address] / COL[facility] #4724/CLIA # [id number] Creatinine [Mass/Vol] 78.7 ml/m1.73 Normal [facility] Comment on above: Performed By: #### 1 030, 1035, 4500, 4510, 4520, 4581 #### [facility] Unless Otherwise Noted [address] [address] / COLA #4724/CLIA # [id number] FT3on 06-20-2019 FT3 2.80 pg/mL Normal 2.45-5.93 [facility] Comment on above: Performed By: #### 1 030, 1035, 4500, 4510, 4520, 4581 #### [facility] Unless Otherwise Noted [address] [address] / COLA #4724/CLIA # [id number] FT4on 06-20-2019 Free T4 [Mass/Vol] 1.93 ng/dL Normal 0.78-2.44 [facility] Comment on above: Performed By: #### 1 030, 1035, 4500, 4510, 4520, 4581 #### [facility] Unless Otherwise Noted [address] [address] / COLA #4724/CLIA # [id number] TSHon 06-20-2019 TSH Qn 0.57 uIU/ml Normal 0.47-4.68 [facility] Comment on above: Performed By: #### 1 030, 1035, 4500, 4510, 4520, 4581 #### [facility] Unless Otherwise Noted [address] [address] / COLA #4724/CLIA # [id number] VITAMIN D 25on 06-20-2019 VITAMIN D 25 51.5 ng/ml Normal 30.0-100.0 [facility] Comment on above: Result Comment: Defi cient <20 Insufficient 20-<30 Sufficient 30-100 Potiential Toxicity >100 Performed By: #### 1 030, 1035, 4500, 4510, 4520, 4581 #### [facility] Unless Otherwise Noted [address] [address] / COLA #4724/CLIA # [id number] Basic Metabolic Profon 05-06 (cont.) Normal [facility] Comment on above: Result Comment: Aver age GFR for 70 or more years old: 75 mL/min/1.73sq mChronic Kidney Disease: <60 mL/min/1.73sq mKidney failure: <15 mL/min/1.73sq meGFR calculated using average adult body mass. Additional eGFR calculator available at:http://[email or web address]_crcl_2012.htmPerformed at [facility] [address] [place] [address] Performed By: #### C DP, BMP ####[address] [address] Anion gap 14 mmol/L Normal 9-17 [facility] Comment on above: Performed By: #### C DP, BMP ####[address] [address] Calcium 9.6 mg/dL Normal 8.6-10.4 [facility] Comment on above: Performed By: #### C DP, BMP ####[address] [address] Chloride 106 mmol/L Normal 98-107 [facility] Comment on above: Performed By: #### C DP, BMP ####[address] [address] CO2 26 mmol/L Normal 20-31 [facility] Comment on above: Performed By: #### C DP, BMP ####[address] [address] Creatinine 0.91 mg/dL High 0.50-0.90 [facility] Comment on above: Performed By: #### C DP, BMP ####[address] [address] eGFR (non-black) mL/min/{1.73_m2} Normal >60 [facility] Comment on above: Performed By: #### C DP, BMP ####[address] [place] [address] Glucose mass conc 99 mg/dL Normal 70-99 [facility] Comment on above: Performed By: #### C DP, BMP ####[facility] [place] [address] Potassium molar conc 4.2 mmol/L Normal 3.7-5.3 [facility] Comment on above: Performed By: #### C DP, BMP ####[facility] [place] [address] Sodium 146 mmol/L High 135-144 [facility] Comment on above: Performed By: #### C DP, BMP ####[address] [address] Urea nitrogen 21 mg/dL Normal 8-23 [facility] Comment on above: Performed By: #### C DP, BMP ####[facility] [place] [address] BUN/CRE Ratio NOT REPORTED Normal 9-20 [facility] Comment on above: Performed By: #### C DP, BMP ####[address] [address] Staging: NOT REPORTED Normal [facility] Comment on above: Performed By: #### C DP, BMP ####[address] [address] CBC with Diffon 05-06-2018 Abs. Basophil 0.10 k/uL Normal 0.0-0.2 [facility] Comment on above: Result Comment: Perf ormed at [facility] [address] [place] [address] Performed By: #### C DP, BMP ####[address] [address] Abs.Neutrophil (Seg) 4.00 k/uL Normal 1.3-9.1 [facility] Comment on above: Performed By: #### C DP, BMP ####[facility] [place] [address] Basophils/100 WBC Auto (Bld) 1 % Normal 0-2 [facility] Comment on above: Performed By: #### C DP, BMP ####[facility] [place] [address] Eosinophils 0.20 10*3/uL Normal 0.0-0.4 [facility] Comment on above: Performed By: #### C DP, BMP ####[facility] [place] [address] Eosinophils/100 leukocytes 2 % Normal 0-4 [facility] Comment on above: Performed By: #### C DP, BMP ####[facility] [facility] [place] [address] Erythrocyte distribution width Auto Ratio (RBC) 13.9 % Normal 11.5-14.9 [facility] Comment on above: Performed By: #### C DP, BMP ####[facility] [place], [place] [address] [place] [address] Erythrocytes (RBC) 4.68 10*6/uL Normal 4.0-5.2 [facility] Comment on above: Performed By: #### C DP, BMP ####[facility] [place] [address] Hematocrit (HCT) 41.8 % Normal 36-46 [facility] Comment on above: Performed By: #### C DP, BMP ####[facility] [place] [address] Hemoglobin mass conc (Bld) 13.7 g/dL Normal 12.0-16.0 [facility] Comment on above: Performed By: #### C DP, BMP ####[facility] [place] [address] Lymphocytes 3.20 10*3/uL Normal 1.0-4.8 [facility] Comment on above: Performed By: #### C DP, BMP ####[facility] [place] [address] Lymphocytes/100 leukocytes 39 % Normal 24-44 [facility] Comment on above: Performed By: #### C DP, BMP ####[address] [address] MCH 29.3 pg Normal 26-34 [facility] Comment on above: Performed By: #### C DP, BMP ####[facility] [place] [address] MCHC mass conc (RBC) 32.8 g/dL Normal 31-37 [facility] Comment on above: Performed By: #### C DP, BMP ####[address] [address] MCV 89.3 fL Normal 80-100 [facility] Comment on above: Performed By: #### C DP, BMP ####[facility] [place] [address] Monocytes 0.90 10*3/uL Normal 0.1-1.3 [facility] Comment on above: Performed By: #### C DP, BMP ####[address] [address] Monocytes/100 leukocytes 11 % High 1-7 [facility] Comment on above: Performed By: #### C DP, BMP ####[address] [address] Neutrophil (Seg) 47 % Normal 36-66 [facility] Comment on above: Performed By: #### C DP, BMP ####[address] [address] Platelet mean volume (PMV) 10.3 fL Normal 6.0-12.0 [facility] Comment on above: Performed By: #### C DP, BMP ####[address] [address] Platelets 232 10*3/uL Normal 150-450 [facility] Comment on above: Performed By: #### C DP, BMP ####[address] [address] WBC (Leukocytes) 8.4 10*3/uL Normal 3.5-11.0 [facility] Comment on above: Performed By: #### C DP, BMP ####[facility] [place] [address] Auto Diff Performed NOT REPORTED Normal [facility] Comment on above: Performed By: #### C DP, BMP ####[address] [address] Erythrocyte morphology NOT REPORTED Normal [facility] Comment on above: Performed By: #### C DP, BMP ####[address] [address] Erythrocytes (RBC) NOT REPORTED Normal [facility] Comment on above: Performed By: #### C DP, BMP ####[address] [address] Granulocytes/100 WBC (Bld) NOT REPORTED Normal 0.00-0.30 [facility] Comment on above: Performed By: #### C DP, BMP ####[address] [place] [address] Immature granulocytes #/vol (Bld) NOT REPORTED Normal 0 [facility] Comment on above: Performed By: #### C DP, BMP ####[facility] [place] [address] Platelets NOT REPORTED Normal [facility] Comment on above: Performed By: #### C DP, BMP ####[facility] [place] [address] WBC Morphology NOT REPORTED Normal [facility] Comment on above: Performed By: #### C DP, BMP ####[facility] [place] [address] Vital Signs Date Time Vital Sign Value Performing Clinician Facility 12-08-2024 11:49-0500 Body height 160 cm Bia Cao MD Work Phone: [facility] 12-08-2024 11:49-0500 Body mass index (BMI) [Ratio] 26.18 kg/m2 Bia Cao MD Work Phone: [facility] 12-08-2024 11:49-0500 Body weight 67.04 kg Bia Cao MD Work Phone: [facility] 12-08-2024 11:49-0500 Diastolic blood pressure 76 mm[Hg] Bia Cao MD Work Phone: [facility] 12-08-2024 11:49-0500 Heart rate 79 /min Bia Cao MD Work Phone: [facility] 12-08-2024 11:49-0500 SaO2% (BldA) [Mass fraction] 93 % Bia Cao MD Work Phone: [facility] 12-08-2024 11:49-0500 Systolic blood pressure 128 mm[Hg] Bia Cao MD Work Phone: [facility] 12-06-2024 11:48-0500 Body mass index (BMI) [Ratio] 26.55 kg/m2 John Johnson MD Work Phone: [facility] 12-06-2024 11:48-0500 Body weight 67.99 kg Jhon Johnson MD Work Phone: [facility] 12-06-2024 11:48-0500 Diastolic blood pressure 70 mm[Hg] John Johnson MD Work Phone: [facility] 12-06-2024 11:48-0500 Heart rate 87 /min John Johnson MD Work Phone: [facility] 12-06-2024 11:48-0500 Systolic blood pressure 117 mm[Hg] John Johnson MD Work Phone: [facility] 10-30-2024 13:39-0500 Body height 160 cm Santo Christianson DPM Work Phone: [facility] 10-30-2024 13:39-0500 Body mass index (BMI) [Ratio] 26.18 kg/m2 Santorandell Christianson DPM Work Phone: [facility] 10-30-2024 13:39-0500 Body weight 67.04 kg Santo eMghan DPM Work Phone: [facility] 09-26-2024 13:39-0500 Body mass index (BMI) [Ratio] 26.17 kg/m2 Rose Velasquez MEAT DRESSER.WELDING MACHINE [employer]PERATOR [employer] Work Phone: [facility] 09-26-2024 13:39-0500 Body weight 67 kg Rose Eddie MEAT DRESSER.WELDING MACHINE OPERATOR [employer] Work Phone: [facility] 09-26-2024 13:39-0500 Diastolic blood pressure 81 mm[Hg] Rose Velasquez MEAT DRESSER.WELDING MACHINE OPERATOR [employer] Work Phone: [facility] 09-26-2024 13:39-0500 Heart rate 91 /min Rose Velasquez MEAT DRESSER.WELDING MACHINE OPERATOR [employer] Work Phone: [facility] 09-26-2024 13:39-0500 SaO2% (BldA) [Mass fraction] 96 % Rose Velasquez MEAT DRESSER.WELDING MACHINE OPERATOR [employer] Work Phone: [facility] 09-26-2024 13:39-0500 Systolic blood pressure 143 mm[Hg] Rose Velasquez MEAT DRESSER.WELDING MACHINE OPERATOR [employer] Work Phone: [facility] 08-29-2024 13:53-0400 Body height 160 cm Maria C Kramer MD Work Phone: [facility] 08-29-2024 13:53-0400 Body mass index (BMI) [Ratio] 26.22 kg/m2 Maria C Kramer MD Work Phone: [facility] 08-29-2024 13:53-0400 Body weight 67.13 kg Maria C Kramer MD Work Phone: [facility] 08-29-2024 13:53-0400 Diastolic blood pressure 68 mm[Hg] Maria C Kramer MD Work Phone: [facility] 08-29-2024 13:53-0400 Heart rate 87 /min Maria C Kramer MD Work Phone: [facility] 08-29-2024 13:53-0400 Systolic blood pressure 125 mm[Hg] Maria C Kramer MD Work Phone: [facility] 08-14-2024 15:57-0400 Body height 160 cm Bia Cao MD Work Phone: [facility] 08-14-2024 15:57-0400 Body mass index (BMI) [Ratio] 26.18 kg/m2 Bia Cao MD Work Phone: [facility] 08-14-2024 15:57-0400 Body weight 67.04 kg Bia Cao MD Work Phone: [facility] 08-14-2024 15:57-0400 Diastolic blood pressure 88 mm[Hg] Bia Cao MD Work Phone: [facility] 08-14-2024 15:57-0400 Heart rate 88 /min Bia Cao MD Work Phone: [facility] 08-14-2024 15:57-0400 SaO2% (BldA) [Mass fraction] 95 % Bia Cao MD Work Phone: [facility] 08-14-2024 15:57-0400 Systolic blood pressure 148 mm[Hg] Bia Cao MD Work Phone: [facility] 08-08-2024 11:40-0400 Body height 160 cm Bia Cao MD Work Phone: [facility] 08-08-2024 11:40-0400 Body mass index (BMI) [Ratio] 26.43 kg/m2 Bia Cao MD Work Phone: [facility] 08-08-2024 11:40-0400 Body weight 67.68 kg Bia Cao MD Work Phone: [facility] 08-08-2024 11:40-0400 Diastolic blood pressure 84 mm[Hg] Bia Cao MD Work Phone: [facility] 08-08-2024 11:40-0400 Heart rate 77 /min Bia Cao MD Work Phone: [facility] 08-08-2024 11:40-0400 Respiratory rate 20 /min Bia Cao MD Work Phone: [facility] 08-08-2024 11:40-0400 SaO2% (BldA) [Mass fraction] 97 % Bia Cao MD Work Phone: [facility] 08-08-2024 11:40-0400 Systolic blood pressure 136 mm[Hg] Bia Cao MD Work Phone: [facility] 07-10-2024 15:39-0400 Body height 160 cm Bia Cao MD Work Phone: [facility] 07-10-2024 15:39-0400 Body mass index (BMI) [Ratio] 27.1 kg/m2 Bia Cao MD Work Phone: [facility] 07-10-2024 15:39-0400 Body weight 69.4 kg Bia Coa MD Work Phone: [facility] 07-10-2024 15:39-0400 Diastolic blood pressure 72 mm[Hg] Bia Cao MD Work Phone: [facility] 07-10-2024 15:39-0400 Heart rate 90 /min Bia Cao MD Work Phone: [facility] 07-10-2024 15:39-0400 Respiratory rate 18 /min Bia Cao MD Work Phone: [facility] 07-10-2024 15:39-0400 SaO2% (BldA) [Mass fraction] 97 % Bia Cao MD Work Phone: [facility] 07-10-2024 15:39-0400 Systolic blood pressure 126 mm[Hg] Bia Cao MD Work Phone: [facility] 04-04-2024 11:29-0400 Body height 160 cm Mandi Hoover MD Work Phone: [facility] 04-04-2024 11:29-0400 Body mass index (BMI) [Ratio] 27.18 kg/m2 Mandi Hoover MD Work Phone: [facility] 04-04-2024 11:29-0400 Body temperature 97.7 [degF] Mandi Hoover MD Work Phone: [facility] 04-04-2024 11:29-0400 Body weight 69.6 kg Mandi Hoover MD Work Phone: [facility] 04-04-2024 11:29-0400 Diastolic blood pressure 65 mm[Hg] Mandi Hoover MD Work Phone: [facility] 04-04-2024 11:29-0400 Heart rate 80 /min Mandi Hoover MD Work Phone: [facility] 04-04-2024 11:29-0400 Respiratory rate 18 /min Mandi Hoover MD Work Phone: [facility] 04-04-2024 11:29-0400 SaO2% (BldA) [Mass fraction] 96 % Mandi Hoover MD Work Phone: [facility] 04-04-2024 11:29-0400 Systolic blood pressure 105 mm[Hg] Mandi Hoover MD Work Phone: [facility] 02-24-2024 12:02-0400 Body height 160 cm Ryan Dallas MD Work Phone: [facility] 02-24-2024 12:02-0400 Body mass index (BMI) [Ratio] 27.21 kg/m2 Ryan Dallas MD Work Phone: [facility] 02-24-2024 12:02-0400 Body weight 69.67 kg Ryan Dallas MD Work Phone: [facility] 02-24-2024 12:02-0400 Diastolic blood pressure 76 mm[Hg] Ryan Dallas MD Work Phone: [facility] 02-24-2024 12:02-0400 Heart rate 78 /min Ryan Dallas MD Work Phone: [facility] 02-24-2024 12:02-0400 Respiratory rate 16 /min Ryan Dallas MD Work Phone: [facility] 02-24-2024 12:02-0400 SaO2% (BldA) [Mass fraction] 94 % Ryan Dallas MD Work Phone: [facility] 02-24-2024 12:02-0400 Systolic blood pressure 147 mm[Hg] Ryan Dallas MD Work Phone: [facility] 01-07-2024 10:29-0500 Body height 160 cm Yoanna Dorsey APRN-WELDING MACHINE OPERATOR [employer] Work Phone: [facility] 01-07-2024 10:29-0500 Body mass index (BMI) [Ratio] 27.63 kg/m2 Yoanna Dorsey APRN-WELDING MACHINE OPERATOR [employer] Work Phone: [facility] 01-07-2024 10:29-0500 Body weight 70.76 kg Yoanna Dorsey MEAT DRESSER-WELDING MACHINE OPERATOR [employer] Work Phone: [facility] 01-07-2024 10:29-0500 Diastolic blood pressure 78 mm[Hg] Yoanna Dorsey MEAT DRESSER-WELDING MACHINE OPERATOR [employer] Work Phone: [facility] 01-07-2024 10:29-0500 Heart rate 80 /min Yoanna Dorsey MEAT DRESSER-WELDING MACHINE OPERATOR [employer] Work Phone: [facility] 01-07-2024 10:29-0500 Systolic blood pressure 124 mm[Hg] Yoanna Dorsey MEAT DRESSER-WELDING MACHINE OPERATOR [employer] Work Phone: [facility] Encounters Encounter Date Encounter Type Care Provider Facility Start: 12-12-2024 End: 12-12-2024 Refill Bia Cao MD Work Phone: [facility] Comment on above: Gastroesophageal ref lux disease without esophagitis Start: 12-11-2024 End: 12-11-2024 Orders Only Bia Cao MD Work Phone: [facility] Comment on above: Acute cystitis witho ut hematuria (Primary Dx) Start: 12-08-2024 End: 12-08-2024 Bamboo flowsheet Bia Cao MD Work Phone: [facility] Start: 12-08-2024 End: 12-08-2024 Bamboo flowsheet Bia Cao MD Work Phone: [facility] Start: 12-08-2024 End: 12-08-2024 ambulatory BIA CAO Not Available Start: 12-08-2024 End: 12-08-2024 Office outpatient visit 25 minutes Bia Cao MD Work Phone: [facility] Comment on above: Urinary frequency (P rimary Dx); Essential hypertension (CMS/HCC); Age-related osteoporosis without current pathological fracture (CMS/HCC) Start: 12-06-2024 End: 12-06-2024 Office outpatient visit 25 minutes John Johnson MD Work Phone: [facility] Adult Endocrinology, A Department of [facility] Comment on above: Hypothyroidism, unsp ecified type (Primary Dx); Age-related osteoporosis without current pathological fracture; Vitamin D deficiency Start: 12-06-2024 End: 12-06-2024 Orders Only Gladys Juan Manuel OROZCO [facility] Adult Endocrinology, A Department of [facility] Comment on above: Osteoporosis, unspec ified osteoporosis type, unspecified pathological fracture presence (Primary Dx) Start: 11-29-2024 End: 11-29-2024 Refill Bia Cao MD Work Phone: [facility] Comment on above: Anemia, unspecified type (Primary Dx) Start: 11-28-2024 End: 11-28-2024 ambulatory [facility] Start: 11-20-2024 End: 11-20-2024 ambulatory Adelfo Hansen MD Facility:[facility] Start: 11-06-2024 End: 11-06-2024 Refill Bia Cao MD Work Phone: [facility] Comment on above: Hyperlipidemia, unsp ecified hyperlipidemia type (CMS/HCC) Start: 10-30-2024 End: 10-30-2024 Bamboo flowsheet Santo Christianson DPM Work Phone: [facility] Start: 10-30-2024 End: 10-30-2024 Bamboo flowsheet Santo Christianson DPM Work Phone: [facility] Start: 10-30-2024 End: 10-30-2024 Patient encounter procedure Santo Christianson DPM Work Phone: [facility] Comment on above: Dermatophytosis of n ail (Primary Dx); Dystrophic nail; Pain around toenail, right foot; Pain around toenail, left foot Start: 10-30-2024 End: 10-30-2024 ambulatory SANTO CHRISTIANSON Not Available Start: 10-04-2024 End: 10-06-2024 Telephone encounter Rose Velasquez APRN.WELDING MACHINE OPERATOR [employer] Work Phone: [facility] Comment on above: Patient Question Start: 09-26-2024 End: 09-26-2024 ambulatory ROSE VELASQUEZ Facility:[facility] Start: 09-26-2024 End: 09-26-2024 Patient encounter procedure Rose Velasquez MEAT DRESSER.WELDING MACHINE OPERATOR [employer] Work Phone: Neurosurgery Comment on above: 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); Dizziness Start: 09-26-2024 End: 09-26-2024 ambulatory MANDIREHAN HOOVER Facility:[facility] Start: 09-26-2024 End: 09-26-2024 Subsequent hospital visit by physician Mri [facility] (Lg Bore/1.5t) Radiology MRI Comment on above: 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 Anny [facility] Start: 08-22-2024 End: 08-24-2024 Refill Linda Ochoa [facility] Start: 08-21-2024 End: 08-21-2024 ambulatory Adelfo Hansen MD Facility:[facility] Start: 08-14-2024 End: 08-14-2024 Office outpatient [...] Available Start: 07-17-2024 End: 07-17-2024 ambulatory Adelfo Arredondo Gieditis Facility:[facility] Start: 07-14-2024 End: 07-14-2024 Orders Only Bia Cao MD Work Phone: [facility] Comment on above: Acute cystitis witho ut hematuria (Primary Dx) Start: 07-13-2024 End: 07-13-2024 ambulatory [facility] Start: 07-11-2024 End: 07-11-2024 Orders [...] [facility] Start: 07-10-2024 End: 07-10-2024 ambulatory [facility] Start: 07-03-2024 End: 07-03-2024 [facility] Start: 06-14-2024 End: 06-14-2024 ambulatory [facility] Start: 05-09-2024 Orders Only Mandi gambino MD Work Phone: [facility] Comment on above: Intracranial meningi brandon (HCC) (Primary Dx); Benign neoplasm of meninges (HCC) Start: 05-04-2024 End: 05-04-2024 ambulatory BIA CAO Not Available Start: 05-01-2024 End: 05-01-2024 ambulatory Adelfo Hansen MD Facility:[facility] Start: 04-05-2024 End: 04-05-2024 ambulatory RIA SNYDER Not Available Start: 04-04-2024 End: 04-04-2024 ambulatory MANDI HOOVER Facility:[facility] Start: 04-04-2024 End: 04-04-2024 Patient encounter procedure Mandi Hoover MD Work Phone: [facility] Comment on above: Intracranial meningi brandon (HCC) (Primary Dx); Sensorineural hearing loss (SNHL) of right ear, unspecified hearing status on contralateral side; Dizziness Start: 04-03-2024 End: 04-03-2024 ambulatory BIA CAO Not Available Start: 03-24-2024 Telephone encounter Neurology Provid er Neurology Comment on above: Received Outside Med [facility] Records (External referral to Neurological [place]/); triage; Nurse Triage Call; Appointment Start: 03-24-2024 End: 03-24-2024 ambulatory [facility] Start: 03-16-2024 ambulatory BIA CAO [facility] Start: 03-13-2024 End: 03-13-2024 ambulatory Adelfo Hansen MD Facility: [facility] Start: 03-10-2024 End: 03-10-2024 ambulatory [facility] Start: 03-02-2024 End: 03-02-2024 ambulatory BIA CAO Not Available Start: 02-24-2024 End: 02-24-2024 Office outpatient visit 15 minutes Ryan Dallas MD [facility] Comment on above: Essential hypertensi on (Primary Dx); LVH (left ventricular hypertrophy); Mixed hyperlipidemia; Hypotension due to drugs Start: 02-24-2024 End: 02-24-2024 ambulatory RYAN DALLAS [facility] Start: 02-22-2024 End: 02-22-2024 ambulatory BIA CAO Not Available Start: 02-15-2024 End: 02-15-2024 ambulatory BIA CAO Not Available Start: 02-11-2024 End: 02-12-2024 Emergency department patient visit [place] [facility] Start: 02-10-2024 Orders Only Ryan aquino MD Work Phone: [facility] Comment on above: Essential hypertensi on Start: 02-09-2024 Refill Doris Hawkins RN [facility] Start: 02-07-2024 End: 02-07-2024 ambulatory Adelfo Hansen MD Facility:[facility] Start: 01-18-2024 End: 01-18-2024 ambulatory RIA SNYDER Not Available Start: 01-12-2024 End: 01-12-2024 ambulatory RIA SNYDER Not Available Start: 01-11-2024 End: 01-11-2024 ambulatory [facility] Start: 01-10-2024 End: 01-10-2024 ambulatory Adelfo Hansen MD Facility:[facility] Start: 01-07-2024 End: 01-07-2024 [facility] MEAT DRESSER-WELDING MACHINE OPERATOR [employer] Work Phone: [facility] Adult Neurology Comment on above: Migraine without aur a and without status migrainosus, not intractable (Primary Dx); Bilateral occipital neuralgia; Essential tremor; Cervicalgia; Trapezius muscle spasm; Balance problem; Psychophysiological insomnia; Polyneuropathy; Prediabetes; Essential (primary) hypertension; Abnormal level of blood mineral; Decreased hearing of both ears Start: 01-07-2024 End: 01-07-2024 ambulatory [facility] Start: 01-06-2024 End: 01-06-2024 ambulatory Ria Snyder PRESS CLIPPER Work Phone: [facility] Comment on above: General weakness (Pr imary Dx); History of falling Start: 01-04-2024 Bamboo flowsheet Ria Wrig ht PRESS CLIPPER Work Phone: [facility] Start: 01-04-2024 Bamboo flowsheet Ria Wrig ht PRESS CLIPPER Work Phone: [facility] Start: 01-04-2024 End: 01-04-2024 ambulatory Ria Snyder PRESS CLIPPER Work Phone: [facility] Comment on above: General weakness (Pr imary Dx); History of falling Start: 01-03-2024 Refill Bia Gaxiola Work Phone: [facility] Comment on above: Mixed hyperlipidemia (CMS/HCC) (Primary Dx); Stress incontinence of urine Start: 12-31-2023 End: 12-31-2023 ambulatory RIA SNYDER Not Available Start: 12-30-2023 Chart abstracting Jonny Freitas gs PT Work Phone: [facility] Start: 12-28-2023 End: 12-28-2023 ambulatory RIA SNYDER Not Available Start: 12-23-2023 End: 12-23-2023 ambulatory Ria Snyder PRESS CLIPPER Work Phone: [facility] Comment on above: General weakness (Pr imary Dx); History of falling Start: 12-21-2023 End: 12-21-2023 ambulatory RIA SNYDER Not Available Start: 12-16-2023 End: 12-16-2023 ambulatory RIA SNYDER Not Available Start: 12-13-2023 Antony aggarwal MD Work Phone: [facility] Adult Endocrin[facility] Start: 10-12-2022 End: 10-12-2022 ambulatory BIA CAO [facility] Start: 09-28-2022 End: 09-28-2022 ambulatory [facility] Anny [facility] Start: 05-16-2018 End: 05-16-2018 Ambulatory AUDREY HORN [facility] Start: 05-06-2018 End: 05-11-2018 Ambulatory LENNY PEDRAZA [facility] Start: 05-02-2018 Patient encounter status Antonietta Johnson MD Work Phone: [facility] Work Phone: Procedures Date Procedure Procedure Detail Performing Clinician Start: 12-08-2024 Culture bacterial quanttative colony count urine Bia Cao MD Work Phone: Start: 12-08-2024 NOTE Bia alva MD Work Phone: Start: 12-08-2024 End: 12-08-2024 Urnls dip stick/tablet rgnt non-auto w/o micrscp Bia Cao MD Work Phone: Start: 12-06-2024 Follow-up visit Follow-up JOHN JOHNSON Start: 09-26-2024 Mri brain brain stem w/o [...] Adult depression scr eening assessment Yoanna Dorsey MEAT DRESSER-WELDING MACHINE OPERATOR [employer] Work Phone: Start: 04-23-2023 Adult depression scr eening assessment [...] JORDAN PEDRAZA Start: 05-16-2018 VITAL SIGNS LENNY ABBIE PAIZ Start: 05-06-2018 Basic metabolic pane l calcium total LENNY PEDRAZA Start: 05-06-2018 Blood count complete auto&auto difrntl wbc LENNY MILO Plan of Treatment Date Care Activity Detail Author Start: 02-10-2027 Diabetes Screening Diabetes Screening [facility] Start: 12-06-2025 Tobacco Screening Tobacco Screening [facility] Start: 08-29-2025 Adult BMI Screening Adult BMI Screening [facility] Start: 08-29-2025 Tobacco Screening Tobacco Screening [facility] Start: 07-13-2025 Adult BMI Screening Adult BMI Screening [facility] Start: 07-13-2025 Depression Screening Depression Screening [facility] Start: 07-13-2025 Tobacco Screening Tobacco Screening [facility] Start: 05-21-2025 Influenza vaccination Influenza Vaccine (#1) [facility] Comment on above: Postponed from 07/23/2024 (Other Medical Reasons) Start: 04-18-2025 End: 04-18-2025 Patient encounter procedure 04/18/2025 1:30 PM EDT [facility] Department of [facility] [address] [address] [place] [address] John Johnson MD [address] [facility] [place] [address] [facility] Adult Endocrinology, A Department of [facility] Start: 04-09-2025 End: 04-09-2025 Patient encounter procedure 04/09/2025 1:40 PM EDT Off ice Visit [facility] [address] [place] [phone] Bia Cao MD [address] [place], [place] [id number] [facility] Start: 03-10-2025 Fall Risk Screening Fall Risk Screening [facility] Start: 02-10-2025 Adult BMI Screening Adult BMI Screening [facility] Start: 01-18-2025 End: 01-18-2025 Patient encounter procedure 01/18/2025 11:00 AM EST Office Visit [facility] [address] [place] [address] Yoanna Dorsey APRN-MAHENDRA [address] [place] [address] [facility] Start: 01-07-2025 Adult BMI Screening Adult BMI Screening [facility] Start: 01-07-2025 Depression Screening Depression Screening [facility] Start: 01-07-2025 Tobacco Screening Tobacco Screening [facility] Start: 12-19-2024 End: 12-19-2024 Patient encounter procedure 12/19/2024 12:45 PM EST Office Visit [facility] [address] [place] [address] [facility] [place] [phone] Maria C Kramer MD [address] [place] [address] [facility] Start: 12-08-2024 End: 12-08-2024 Patient encounter procedure 12/08/2024 11:40 AM EST Office Visit [facility] [address] [place] [phone] Bia Cao MD [address] [place], [place] [phone] [facility] Start: 12-06-2024 Medicare Annual Wellness (AWV) Medicare Annual Wellness (AWV) [facility] Start: 12-06-2024 End: 12-06-2024 Patient encounter procedure 12/06/2024 11:45 AM EST Office Visit [facility] [address] [facility] [address] [place] [address] John Johnson MD [address] [facility] [place] [address] [facility] Start: 11-29-2024 Adult BMI Screening Adult BMI Screening [facility] Start: 11-29-2024 Tobacco Screening Tobacco Screening [facility] Start: 10-30-2024 End: 10-30-2024 Patient encounter procedure 10/30/2024 1:45 PM EST Off ice Visit [facility] [address] [place] [phone] Santo Christianson DPM [address] [place], [place] [phone] Arrived [facility] Comment on above: Arrived Start: 10-01-2024 Fall Risk Screening Fall Risk Screening [facility] Start: 08-29-2024 End: 08-29-2024 Patient encounter procedure 08/29/2024 1:30 PM EDT Off ice Visit [facility] [address] [place] [address] [place] [phone] Maria C Kramer MD [address] [place] [address] [facility] Start: 08-28-2024 End: 06-08-2025 MR Brain WO and W contrast IV MRI BRAIN WO/W IVCON Radiology Routine Benign neoplasm of meninges (HCC) Expected: 08/28/2024 (Approximate), Expires: 06/08/2025 [facility] Work Phone: Comment on above: Expected: 08/28/2024 (Approximate), Expi res: 06/08/2025 Start: 08-14-2024 End: 08-14-2024 Patient encounter procedure 08/14/2024 4:00 PM EDT Off ice Visit [facility] [address] [place] [phone] Bia Cao MD [address] [place] [address] Arrived [facility] Comment on above: Arrived Start: 08-08-2024 End: 08-08-2024 Patient encounter procedure 08/08/2024 11:40 AM EDT Office Visit [facility] [address] [place] [phone] Bia Cao MD [address] [place] [address] Arrived [facility] Comment on above: Arrived Start: 08-04-2024 End: 08-04-2024 Patient encounter procedure 08/04/2024 11:00 AM EDT Office Visit [facility] [address] [place] [phone] Bia Cao MD [address] [place] [address] [facility] Start: 07-23-2024 COVID-19 Vaccine ( season) COVID-19 Vaccine ( season) [facility] Start: 07-23-2024 Covid-19 Vaccine () Covid-19 Vaccine () [facility] Start: 07-23-2024 Influenza vaccination [facility] Start: 07-10-2024 End: 07-10-2025 Bacteria identified in Urine by Culture Urine culture (clean catch) Microbiology Routine Dysuria Expected: 07/10/2024 (Approximate), Expires: 07/10/2025 [facility] Work Phone: Comment on above: Expected: 07/10/2024 (Approximate), Expi res: 07/10/2025 Start: 07-10-2024 End: 07-10-2025 Urinalysis complete panel - Urine Urinalysis with reflex microscopic (clean catch) Lab Routine Dysuria Expected: 07/10/2024 (Approximate), Expires: 07/10/2025 [facility] Comment on above: Expected: 07/10/2024 (Approximate), Expi res: 07/10/2025 Start: 07-10-2024 End: 07-10-2024 Patient encounter procedure [facility] Comment on above: Arrived Start: 05-21-2024 Influenza vaccination Influenza Vaccine (#1) [facility] Comment on above: Postponed from 07/23/2023 (Patient Refus ed) Start: 04-23-2024 Depression Screening Depression Screening [facility] Start: 04-11-2024 End: 04-11-2024 Patient encounter procedure 04/11/2024 2:45 PM EDT Off ice Visit [facility] [address] [place] [address] John Johnson MD [address] [place] [address] [facility] Start: 04-04-2024 End: 04-04-2024 Patient encounter procedure 04/04/2024 10:30 AM EDT Office Visit [facility] [address] [place] [address] Mandi Hoover MD [address] [place] [address] Time Frame: First available [facility] Comment on above: Time Frame: First available Start: 04-03-2024 End: 04-03-2024 Patient encounter procedure 04/03/2024 11:20 AM EDT Office Visit [facility] [address] [place] [phone] Bia Cao MD [address] [place], [place] [phone] [facility] Start: 02-09-2024 End: 02-09-2024 Patient encounter procedure 02/09/2024 11:00 AM EDT Office Visit [facility] [address] [facility] [address] [place] [phone] Ryan Dallas MD [address] [facility] [place] [address] [facility] Start: 01-20-2024 End: 01-20-2024 ambulatory 01/20/2024 11:00 AM EST Treatment [facility] [address] [place] [phone] Jonny Salazar, PT [address] [place] [address] [facility] Start: 01-18-2024 End: 01-18-2024 ambulatory 01/18/2024 11:30 AM EST Treatment [facility] [address] [place] [phone] Ria Snyder, PRESS CLIPPER [address] [place] [address] [facility] Start: 01-14-2024 End: 01-14-2024 ambulatory 01/14/2024 1:00 PM EST Treatment [facility] [address] [place] [phone] Ria Snyder, PRESS CLIPPER [address] [place] [address] [facility] Start: 01-12-2024 End: 01-12-2024 ambulatory 01/12/2024 12:30 PM EST Treatment [facility] [address] [place] [phone] Ria Snyder, PRESS CLIPPER [address] [place] [address] [facility] Start: 01-11-2024 End: 01-11-2024 Patient encounter procedure 01/11/2024 11:00 AM EST Office Visit [facility] [address] [place] [address] Yoanna Dorsey, MEAT DRESSER-WELDING MACHINE OPERATOR [employer] [address] [place] [address] [facility] Start: 01-06-2024 End: 01-06-2024 ambulatory [facility] Start: 01-04-2024 End: 01-04-2024 ambulatory 01/04/2024 11:30 AM EST Treatment [facility] [address] [place] [phone] Ria Snyder, PRESS CLIPPER [address] [place] [address] [facility] Start: 12-31-2023 End: 12-31-2023 ambulatory 12/31/2023 10:00 AM EST Treatment [facility] [address] [place] [phone] Ria Snyder, PRESS CLIPPER [address] [place] [address] [facility] Start: 12-30-2023 End: 12-30-2023 ambulatory 12/30/2023 11:30 AM EST Treatment [facility] [address] [place] [phone] Jonny Salazar, PT [address] [place] [address] [facility] Start: 12-28-2023 End: 12-28-2023 ambulatory 12/28/2023 11:30 AM EST Treatment [facility] [address] [place] [address] Ria Snyder, PRESS CLIPPER [address] [place] [address] [facility] Start: 11-22-2023 Advance Directive Discussion Advance Directive Discussion [facility] Start: 11-22-2023 Behavioral Health Screening Behavioral Health Screening [facility] Start: 07-23-2023 COVID-19 Vaccine ( season) COVID-19 Vaccine ( season) [facility] Start: 07-23-2023 Influenza vaccination Influenza Vaccine [facility] Start: 08-21-2021 DTaP,Tdap and Td Vaccines (2 - Td or Tdap) DTaP,Tdap and Td Vaccines (2 - Td or Tdap) [facility] Start: 2020 RSV Vaccine (1 - 1-dose 75+ series) RSV Vaccine (1 - 1-dose 75+ series) [facility] Start: 08-22-2011 Urine microalbumin profile DTaP,Tdap,Td Vaccine (1 - Tdap) [facility] Start: 01-17-2010 Administration of varicella zoster vaccine Zoster (Shingles) Vaccine (2 of 3) [facility] Start: 2005 RSV Vaccine (1 - 1-dose 60+ series) RSV Vaccine (1 - 1-dose 60+ series) [facility] Start: 1995 Shingrix Vaccine (1 of 2) Shingrix Vaccine (1 of 2) [facility] Start: 1963 Adult BMI Follow Up Plan Adult BMI Follow Up Plan [facility] Start: 1963 Anxiety Screening Anxiety Screening [facility] Start: 1963 Depression Screening Depression Screening [facility] Start: 1963 Hepatitis C screening Hepatitis C Screening [facility] Start: 1945 Medicare Annual Wellness Visit Medicare Annual Wellness Visit [facility] Bacteria identified in Urine by Culture Urine culture (clean catch) Microbiology Routine Urinary frequency 12/08/2024 12:28 PM [facility] [employer] Work Phone: End: 01-07-2025 CBC W Auto Differential panel - Blood CBC auto differential Lab Routine Essential tremor Balance problem Polyneuropathy 1 Occurrences starting 01/07/2024 until 01/07/2025 [facility] Comment on above: 1 Occurrences starting 01/07/2024 until 01/07/2025 End: 01-07-2025 Cyanocobalamin vitamin b-12 Vitamin B12 Lab Routine Balance problem Polyneuropathy 1 Occurrences starting 01/07/2024 until 01/07/2025 [facility] Comment on above: 1 Occurrences starting 01/07/2024 until 01/07/2025 End: 01-07-2025 Ferritin [Mass/volume] in Serum or Plasma Ferritin Lab Routine Polyneuropathy Abnormal level of blood mineral 1 Occurrences starting 01/07/2024 until 01/07/2025 [facility] Comment on above: 1 Occurrences starting 01/07/2024 until 01/07/2025 End: 01-07-2025 Folate [Mass/volume] in Serum or Plasma Folate Serum Lab Routine Balance problem Polyneuropathy 1 Occurrences starting 01/07/2024 until 01/07/2025 [facility] Comment on above: 1 Occurrences starting 01/07/2024 until 01/07/2025 End: 01-07-2025 Hemoglobin A1c/Hemoglobin.total in Blood Hemoglobin A1c Lab Routine Balance problem Polyneuropathy Prediabetes 1 Occurrences starting 01/07/2024 until 01/07/2025 [facility] Comment on above: 1 Occurrences starting 01/07/2024 until 01/07/2025 End: 01-07-2025 Homocysteine total Homocysteine total Lab Routine Balance problem Polyneuropathy Essential (primary) hypertension 1 Occurrences starting 01/07/2024 until 01/07/2025 [facility] Comment on above: 1 Occurrences starting 01/07/2024 until 01/07/2025 End: 01-07-2025 Immunoelectrophoresis for Therapy Monitoring Immunoelectrophoresis for Therapy Monitoring Lab Routine Balance problem Polyneuropathy 1 Occurrences starting 01/07/2024 until 01/07/2025 [facility] Comment on above: 1 Occurrences starting 01/07/2024 until 01/07/2025 End: 01-07-2025 Iron and TIBC Iron and TIBC Lab Routine Essential tremor Balance problem Polyneuropathy Abnormal level of blood mineral 1 Occurrences starting 01/07/2024 until 01/07/2025 [facility] Comment on above: 1 Occurrences starting 01/07/2024 until 01/07/2025 End: 01-07-2025 Methylenetetrahydrofolate reductase Methylenetetrahydrofolate reductase Lab Routine Balance problem Polyneuropathy 1 Occurrences starting 01/07/2024 until 01/07/2025 [facility] Comment on above: 1 Occurrences starting 01/07/2024 until 01/07/2025 End: 01-07-2025 Methylmalonic acid screen Methylmalonic acid screen La b Routine Balance problem Polyneuropathy 1 Occurrences starting 01/07/2024 until 01/07/2025 [employer] Work Phone: Comment on above: 1 Occurrences starting 01/07/2024 until 01/07/2025 End: 10-26-2025 MR Brain WO and W contrast IV MRI BRAIN WO/W IVCON Radiology Routine Benign neoplasm of meninges (HCC) 1 Occurrences starting 09/26/2024 until 10/26/2025 [facility] Work Phone: Comment on above: 1 Occurrences starting 09/26/2024 until 10/26/2025 End: 01-07-2025 Protein electrophoresis, serum Protein electrophoresis, serum Lab Routine Balance problem Polyneuropathy 1 Occurrences starting 01/07/2024 until 01/07/2025 [facility] Comment on above: 1 Occurrences starting 01/07/2024 until 01/07/2025 End: 01-07-2025 Thyroid profile includes TSH FT4 Thyroid profile includes TSH FT4 Lab Routine Balance problem Polyneuropathy Prediabetes 1 Occurrences starting 01/07/2024 until 01/07/2025 [facility] Comment on above: 1 Occurrences starting 01/07/2024 until 01/07/2025 Immunizations Immunization Date Immunization Notes Care Provider Fa [facility] 10-26-2024 RSV, recombinant, protein subunit RSVpreF, adjuvant reconstitu, 120mcg/0.5mL, PF (Arexvy) Santo Christianson DPM Work Phone: [facility] 03-12-2021 COVID-19, mRNA, LNP- S, PF, 100mcg/0.5mL Dose John Johnson MD Work Phone: [facility] 03-11-2021 Moderna SARS-CoV-2 Vaccination Rai Snyder PRESS CLIPPER Work Phone: [facility] 02-12-2021 COVID-19, mRNA, LNP- S, PF, 100mcg/0.5mL Dose John Johnson MD Work Phone: [facility] 02-11-2021 Moderna SARS-CoV-2 Vaccination Ria Snyder PRESS CLIPPER Work Phone: [facility] 11-12-2020 pneumococcal conjuga te vaccine, 13 valent John Johnson MD Work Phone: [facility] 09-17-2020 influenza, high dose seasonal, preservative-free John Johnson MD Work Phone: [facility] 09-17-2020 Seasonal, quadrivale nt, recombinant, injectable influenza vaccine, preservative free John Johnson MD Work Phone: [facility] 09-17-2020 influenza virus vacc ine, unspecified formulation John Johnson MD Work Phone: [facility] 08-30-2019 Seasonal, quadrivale nt, recombinant, injectable influenza vaccine, preservative free John Johnson MD Work Phone: [facility] 08-29-2018 influenza, injectabl e, quadrivalent, preservative free John Johnson MD Work Phone: [facility] 08-22-2015 influenza, seasonal, injectable, preservative free Ria Snyder PRESS CLIPPER Work Phone: [facility] 08-13-2015 pneumococcal polysaccharide vaccine, 23 valent Ria Snyder PRESS CLIPPER Work Phone: [facility] 08-21-2011 tetanus and diphther ia toxoids, adsorbed, preservative free, for adult use (5 Lf of tetanus toxoid and 2 Lf of diphtheria toxoid) John Johnson MD Work Phone: [facility] 11-22-2009 zoster vaccine, live Blase n Claudio PRESS CLIPPER Work Phone: [facility] 11-22-2009 zoster vaccine, unspecified formulation John Johnson MD Work Phone: [facility] Payers Date Payer Category Payer Medicaid [employer] MED[employer]ARE A DVANTAGE [id number] 2022 Private Health Insurance 2021 Medicare [id number] 2021 Medicare HMO [employer] MEDICARE [id number] 2021 Medicare [id number] 2012 Medicare [id number] 1945 Unknown [id number] 2.16840.1.136416.3.579.2. 175 1945 Unknown [id number] 2.840.1.167900.3.579.2. 175 1945 Unknown [id number] 2.16840.1.602606.3.579.2. 1285 1945 Unknown [id number] 2.16840.1.895573.3.579.2. 1285 1945 Unknown [id number] 2.16840.1.706166.3.579.2. 1285 1945 Unknown [id number] 2.16840.1.446123.3.579.2. 1285 1945 Unknown [id number] 2.16840.1.335012.3.579.2. 1285 1945 Unknown [id number] 2.16840.1.629248.3.579.2. 1285 1945 Unknown [id number] 2.16840.1.814356.3.579.2. 1286 1945 Unknown [id number] 2.16.840.1.078561.3.579.2. 1285 1945 Unknown [id number] 2.16.840.1.406458.3.579.2. 1285 1945 Unknown [id number] 2.16.840.1.209751.3.579.2. 1285 1945 Unknown [id number] 2.16.840.1.919009.3.579.2. 1285 1945 Unknown [id number] 2.16.840.1.127110.3.579.2. 1285 1945 Unknown [id number] 2.16.840.1.658114.3.579.2. 1285 1945 Unknown [id number] 2.840.1.866148.3.579.2. 1285 1945 Unknown [id number] 2.16840.1.352974.3.579.2. 1285 1945 Unknown [id number] 2.840.1.045606.3.579.2. 1945 Unknown [id number] 2.16.840.1.961691.3.579.2. 1945 Unknown [id number] 2.840.1.915614.3.579.2. 1945 Unknown [id number] 2.16.840.1.734982.3.579.2. 1945 Unknown [id number] 2.16.840.1.407443.3.579.2. 1945 Unknown [id number] 2.16.840.1.034652.3.579.2. 1945 Unknown [id number] 2.16840.1.659634.3.579.2. 1945 Unknown [id number] 2.16.840.1.172103.3.579.2. 196 1945 Unknown [id number] 2.16.840.1.871360.3.579.2. 1286 194 Unknown [id number] 2.16.840.1.089341.3.579.2. 1286 1945 Unknown [id number] 2.16.840.1.622215.3.579.2. 1259 1945 Unknown [id number] 2.16.840.1.534161.3.579.2. 1259 1945 Unknown [id number] 2.16.840.1.418640.3.579.2. 1259 1945 Unknown [id number] 2.16.840.1.996876.3.579.2. 1259 1945 Unknown [id number] 2.840.1.681619.3.579.2. 1259 1945 Unknown [id number] 2.16.840.1.789894.3.579.2. 1259 1945 Unknown [id number] 2.16.840.1.365434.3.579.2. 1259 1945 Unknown [id number] 2.16840.1.739265.3.579.2. 1259 1945 Unknown [id number] 2.16840.1.782704.3.579.2. 1259 1945 Unknown [id number] 2.16.840.1.220406.3.579.2. 1259 1945 Unknown [id number] 2.16.840.1.841124.3.579.2. 1259 1945 Unknown [id number] 2.16.840.1.711484.3.579.2. 1259 194 Unknown [id number] 2.16.840.1.463804.3.579.2. 1259 1945 Unknown [id number] 2.16.840.1.346926.3.579.2. 9 1945 Unknown [id number] 2.16.840.1.352206.3.579.2. 9 1945 Unknown [id number] 2.16.840.1.560574.3.579.2. 1258 1945 Unknown [id number] 2.16.840.1.850514.3.579.2. 1259 1945 Unknown [id number] 2.16.840.1.275877.3.579.2. 1258 1945 Unknown [id number] 2.16.840.1.787396.3.579.2. 9 1945 Unknown [id number] 2.16.840.1.986968.3.579.2. 1258 1945 Unknown [id number] 2.16.840.1.234978.3.579.2. 9 1945 Unknown [id number] 2.16.840.1.428545.3.579.2. 1258 1945 Unknown [id number] 2.16.840.1.657204.3.579.2. 1259 Social History Date Type Detail Facility Start: 11-29-2023 End: 04-03-2024 Tobacco smoking status NHIS Never smoked tobacco [facility] History of tobacco use Passive smoker [facility] Start: 11-29-2023 End: 04-03-2024 Tobacco use and exposure Smokeless tobacco non-user [facility] Start: 11-29-2023 End: 12-06-2024 Alcohol intake Current non-drinker of alcohol (finding) [facility] Start: 11-29-2023 End: 04-02-2024 Alcohol intake [facility] Start: 11-29-2023 End: 04-02-2024 Tobacco use panel [facility] Adolescent depressio n screening assessment 0 [facility] Start: 1945 Sex Assigned At Female [facility] Start: 05-22-2021 Gender identity Identifies as female gender (finding) [facility] Start: 05-22-2021 Sexual orientation Heterosexual (finding) [facility] Start: 12-07-2023 Alcohol intake Current drinker of alcohol (finding) [facility] Start: 05-04-2023 Alcohol Comment caffeine: occasional [facility] Start: 1945 Sex Assigned At Not on file [facility] Start: 07-10-2024 End: 12-10-2024 Alcoholic beverage intake Ex-drinker (finding) [facility] re Do you belong to any clubs or organizations such as latter day groups, unions, fraternal or athletic groups, or [...] time - these days [OSQ] Rather much [facility] (I/We) worried wheth er (my/our) food would run out before (I/we) got money to buy more. Never true [facility] Start: 04-03-2024 Tobacco Comment Second hand smoke from Father [facility] Start: 06-27-2015 Sex Female (finding) [facility] Medical Equipment Procedure Code Equipment Code Equipment Origin al Text Equipment Identifier Dates Patch Dura 1x1in Drmtrx-[place] + Clgn Rgnrt Membr Strl - [id number] Start: 07-03-2021 Goals Date Patient Goal Desired Activity /State Personal health goal Comment on above: Formatting of this n ote might be different from the original. Evaluation of progress towards goal: safe transition from hospital to home with support of her friends/neighbors Personal health goal Clinical Notes 12-13-2023 to 12-12-2024 Telephone Encounter - Bia Cao MD - 12/12/2024 3:29 PM ESTTelephone Encounter - Bia Cao MD - 12/12/2024 3:29 PM Saw Cao MD - 12/08/2024 11:40 AM ESTPatient Instructions Note Date & Type Note Facility 12-12-2024 Telephone encounter Note Approvals with refills [facility] 12-12-2024 Miscellaneous Notes Approvals with refills documented in this encounter [facility] 12-08-2024 History of Present illness Narrative Images from the original note were not included. Angela Ruth is a 79 y.o. female presents with chief complaint of Follow-up HPI: HPI Patient presents today for 4 month follow up History of Present Illness The patient presents for evaluation of osteoporosis, urinary issues, and skin lesions. She reports overall good health, with no significant respiratory issues. She has been experiencing intermittent episodes of cloudy urine, which she attributes to potential dehydration. She expresses a desire to have dipsticks at home for self-monitoring of her urine. Her current medication regimen includes alendronate for osteoporosis, with a planned transition to an injectable form due to the duration of her treatment exceeding 5 years. Her most recent DEXA scan revealed progression from osteopenia to osteoporosis. She also reports the presence of elevated skin lesions on her shoulder, which she would like to have removed. MEDICATIONS Current: Alendronate (Fosamax) SUBJECTIVE: MEDICATIONS: Current Outpatient Medications Medication Instructions albuterol HFA 90 mcg/act inhaler 2 puffs, Inhalation, Every 4 hours alendronate (FOSAMAX) 70 mg, Every 7 days amitriptyline (ELAVIL) 50 mg, Oral, Nightly Ascorbic Acid (vitamin C) 1000 MG tablet Every 24 hours aspirin 81 mg, Daily RT atorvastatin (LIPITOR) 40 mg, Oral, Daily buprenorphine (Butrans) 7.5 MCG/HR 1 patch, Weekly Calcium Carb-Cholecalciferol 600-20 MG-MCG tablet 600 mg, Nightly carvedilol (COREG) 25 mg, Oral, Every 12 hours cholecalciferol (VITAMIN D-3) 1,000 Units, Daily before breakfast escitalopram (LEXAPRO) 20 mg, Oral, Daily with evening meal famotidine (Pepcid) 20 MG tablet Every 24 hours fenofibrate (TRIGLIDE) 160 mg, Oral, Every morning ferrous sulfate 325 mg, Oral, 2 times daily with meals fexofenadine (Ally Allergy) 180 MG tablet Every 24 hours fluticasone (Flonase) 50 MCG/ACT nasal spray 1-2 sprays, Each Nostril, Daily, Shake gently. Before first use, prime pump. After use, clean tip and replace cap. hydrALAZINE (APRESOLINE) 100 mg, Every morning hydrALAZINE (APRESOLINE) 50 mg Lactobacillus (Florajen Women) capsule as directed Orally levothyroxine (Synthroid, Levoxyl) 150 MCG tablet 1 tablet in the morning on an empty stomach Orally Wed thru Wed, skip Wednesday lisinopril-hydroCHLOROthiazide 20-12.5 MG tablet 1 tablet, Oral, Daily RT MAGNESIUM PO 500 mg, Daily RT methocarbamol (ROBAXIN) 1,000 mg, Nightly multivitamin with minerals (Centrum) 9-200 mg-mcg tablet split tablet multivitamin Multiple Vitamins omeprazole (PRILOSEC) 40 mg, Oral, Every morning oxybutynin XL (DITROPAN-XL) 10 mg, Oral, Daily Ubrogepant (Ubrelvy) 100 MG tablet Every 24 hours zafirlukast (ACCOLATE) 20 mg, Oral, 2 times daily I have reviewed and reconciled the history and medication list with the patient today. REVIEW OF SYMPTOMS: Review of Systems Respiratory: Negative. Cardiovascular: Negative. OBJECTIVE: Visit Vitals BP 128/76 Pulse 79 Ht 5' 3 Wt 147 lb 12.8 oz SpO2 93% BMI 26.18 kg/m Smoking Status Never BSA [...] No edema. Left lower leg: No edema. Comments: Significant kyphosis Skin: General: Skin is warm and dry. Findings: No rash. Neurological: Mental Status: She is alert and oriented to person, place, and time. Sensory: No sensory deficit. Gait: Gait normal. Psychiatric: Mood and Affect: Mood normal. Thought Content: Thought content normal. Judgment: Judgment normal. ASSESSMENT AND PLAN: Assessment/Plan Problem List Items Addressed This Visit Essential hypertension ([facility]) Overview Managed by dr cifuentes Age-related osteoporosis without current pathological fracture ([facility]) Other Visit Diagnoses Urinary frequency - Primary Relevant Orders POCT Urinalysis dipstick (Completed) Urine culture (clean catch) (Completed) Urinalysis with reflex microscopic (clean catch) (Completed) Assessment & Plan 1. Osteoporosis. She is currently on alendronate (Fosamax) but will be switched to an injectable medication as it has been more than 5 years on the current treatment. The last DEXA scan indicated progression from osteopenia to osteoporosis. 2. Urinary issues. She reports fluctuating urine clarity, with some days being cloudy and others clear. A urine sample will be collected today for further analysis. She is advised to consider keeping dipsticks at home for self-monitoring. 3. Skin lesions. Cryotherapy was performed on the skin lesions today. She is advised to keep the treated areas covered and apply petroleum jelly. The lesions may become red and pink over the next few days. Follow-up The patient will follow up in 4 months. PROCEDURE Cryotherapy was performed on the skin lesions today. documented in this encounter [facility] 12-06-2024 History of Present illness Narrative Reason for Visit: Angela Ruth is a 79 y.o. female who is being seen today in follow up for hypothyroidism History of Present Illness: Currently taking levothyroxine 150 mcg daily but skipping Wednesday. Feels well without complaint, recent TSH 3.12 May 2023 Also has osteoporosis, on alendronate NO falls in the last 6 months DEXA scan from November 2023 shows-4.0 T-score at forearm. Age-related osteoporosis without current pathological fracture, Post [...] 7.8%. IMPRESSION: Osteoporosis (based on WHO criteria). Lab Results Component Value Date TSH 1.37 07/10/2024 TSH 0.60 01/11/2024 TSH 3.21 2023 T4 1.24 07/10/2024 T4 1.09 01/11/2024 T4 1.03 2023 T3 4.12 (H) 08/14/2021 T3 3.95 (H) 11/01/2018 T3 4.00 (H) 10/23/2016 Lab Results Component Value Date CALCIUM 9.5 07/10/2024 CALCIUM 9.4 02/11/2024 CALCIUM 9.4 2023 CREATININE 1.01 (H) 02/11/2024 CREATININE 1.28 (H) 2023 CREATININE 0.77 03/03/2023 Lab Results Component Value Date VITD25 78.8 07/10/2024 VITD25 58.9 2023 VITD25 66.3 07/07/2022 VITD25 63.4 08/14/2021 Past Medical History: Diagnosis Date Age related osteoporosis Allergic 1951 Allergic rhinitis 1951 Arthritis Asthma Atrophy of vocal cord Basal cell carcinoma of skin Benign familial tremor BPPV (benign paroxysmal positional vertigo) Brain tumor (benign) ([facility]) Breast disorder 4 biopsies Bronchitis 01/01/2017 Cancer ([facility]) Basal cell Carpal tunnel syndrome Cataract [...] COLONOSCOPY w/ bx N/A 07/07/2018 Performed by Alexander Leach MD at [facility] ENDOSCOPY COSMETIC SURGERY 1985 DISCECTOMY 1989 Partial L4-5 EGD 2001 EYE SURGERY 2014 FOOT SURGERY 2009 Reattachment of tendon left foot with bone graft HIP SURGERY 2003 Excision of bursa left hip HYSTERECTOMY 1984 INJECTION BLOCK EPIDURAL STEROID LUMBAR/SACRAL Left L 5,1 NR Left 12/20/2020 Performed by Shubham Clifton MD at [facility] INJECTION BLOCK NERVE MEDIAL [facility]ANCH right C 4/5,5/6 Right 05/22/2022 Performed by Shubham Clifton MD at [facility] BLOCK NERVE MEDIAL BRANCH right C 4/5,5/6 Right 04/17/2022 Performed by Shubham Clifton MD at [facility] INJECTION CAUDAL EPIDURAL WITH CATHETER, STEROID N/A 03/07/2018 Performed by Shubham Clifton MD at [facility] LARGE JOINT BURSA: bilat hip Bilateral 12/10/2017 Performed by Shubham Clifton MD at [facility] NERVE BLOCK Bilateral L 4/5, 5/1 Bilateral 06/28/2017 Performed by Shubham Clifton MD at [facility] NERVE BLOCK Right L 2/3, 3/4 Right 12/08/2019 Performed by Shubham Clifton MD at [facility] NERVE BLOCK RIGHT L23 34 Right 01/19/2020 Performed by Shubham Clifton MD at [facility] SI JOINT Bilateral 04/09/2017 Performed by Shubham Clifton MD at [facility] SI JOINT Bilateral SI Joint Bilateral 05/31/2020 Performed by Shubham Clifton MD at [facility] INJECTION SI JOINT Left SI JOint Left 01/06/2019 Performed by Shubham Clifton MD at [facility] INJECTION SI JOINT Right SI Joint Right 06/09/2019 Performed by Shubham Clifton MD at [facility] INJECTION SPINE TRANSFORAMINAL Left L 4, 5 NR Left 09/24/2017 Performed by Shubham Clifton MD at [facility] INJECTION SPINE TRANSFORAMINAL Left L 5,1 Nroot Left 01/08/2023 Performed by Shubham Clifton MD at [facility] INJECTION SPINE TRANSFORAMINAL Right L 5,1 Nroot Right 11/27/2022 Performed by Shubham Clifton MD at [facility] STEROID EPI 1 WITH SEDATION Left 5,1 NR Left 05/08/2019 Performed by Shubham Clifton MD at [facility] KNEE ARTHROSCOPY 2010, 2013 KNEE [...] 12/02/2018 Performed by Shubham Clifton MD at [facility] RADIO FREQUENCY ABLATION Left L 4/5, 5/1 Left 07/30/2017 Performed by Shubham Clifton MD at [facility] RADIO FREQUENCY ABLATION Left SI joint Left 03/31/2019 Performed by Shubham Clifton MD at [facility] RADIO FREQUENCY ABLATION Right L2/3, 3/4 Right 03/29/2020 Performed by Shubham Clifton MD at [facility] RADIOFREQUENCY ABLATION SPINAL Left Si joint Left 05/07/2017 Performed by Shubham Clifton MD at [facility] RADIOFREQUENCY ABLATION SPINAL Right C 4/5,5/6 Right 06/26/2022 Performed by Shubham Clifton MD at [facility] RADIOFREQUENCY ABLATION SPINAL RIGHT SI JOINT Right 05/21/2017 Performed by Shubham Clifton MD at [facility] RELEASE CARPAL TUNNEL Left 11/04/2021 Performed by Ileana Cortes MD at [facility] SHOULDER SURGERY 2012 Right rotator cuff SKIN BIOPSY 2000 SPINE SURGERY 1989,2006,2017, 2020 STEROID INJECTION KNEE Right 04/2017 [facility] INJECTION TONSILLECTOMY AND ADENOIDECTOMY TRIGGER FINGER RELEASE Right x2 TRIGGER FINGER RELEASE Right 04/2018 2 fingers WRIST SURGERY Right DeQuervins Current Outpatient Medications: acetaminophen (TYLENOL EXTRA STRENGTH) [...] mouth in the morning., Disp: , Rfl: wejoqcn-fjjskitfoyalf-nckithfc (EXCEDRIN MIGRAINE) 250-250-65 mg per tablet, Take 1 tablet by mouth every 6 (six) hours as needed for headaches., Disp: , Rfl: atorvastatin (LIPITOR) 40 mg tablet, Take 1 tablet (40 mg total) by mouth in the morning., Disp: , Rfl: buprenorphine (BUTRANS) 7.5 mcg/hour patch weekly, Place 1 patch on the skin once a week., Disp: , Rfl: calcium carbonate-vitamin D3 600 mg(1,500mg) -800 units [...] low vitamin D levels., Disp: , Rfl: escitalopram (LEXAPRO) 20 mg tablet, Take 1 tablet (20 mg total) by mouth daily with dinner Indications: major depressive disorder., Disp: , Rfl: famotidine (PEPCID) 20 mg tablet, Take 1 tablet (20 mg total) by mouth nightly., Disp: 90 tablet, Rfl: 3 fenofibrate (LOFIBRA) 160 mg tablet, Take 1 tablet (160 mg total) by mouth nightly., Disp: , Rfl: ferrous sulfate (FeroSuL) 325 (65 FE) mg tablet, Take 1 tablet (325 mg total) by mouth in the morning and 1 tablet (325 mg total) in the evening. Take with meals. TAKE 1 TABLET BY MOUTH EVERY MORNING AND 1 TABLET EVERY EVENING WITH MEALS., Disp: 60 tablet, Rfl: 2 fexofenadine (ALLY) [...] daily if Systolic BP is greater than 170), Disp: 60 tablet, Rfl: 11 L.acidoph/B.animalis/B.longum (FLORAJEN DIGESTION ORAL), Take 1 tablet by mouth in the morning., Disp: , Rfl: levothyroxine (SYNTHROID, LEVOTHROID) 150 MCG tablet, 6 days a week, Disp: 90 tablet, Rfl: 1 lisinopril-hydroCHLOROthiazide (ZESTORETIC) 20-12.5 mg per tablet, Take 1 tablet by mouth in the morning., Disp: 90 tablet, Rfl: 3 magnesium 250 mg tablet, Take 2 tablets (500 mg total) by mouth in the morning. Indications: for migraine prevention. At supper time., Disp: , Rfl: methocarbamoL (ROBAXIN) 500 mg tablet, Take 2 tablets (1,000 mg total) by mouth., Disp: , Rfl: omeprazole (PriLOSEC) 40 mg capsule, Take 1 capsule (40 mg total) by mouth in the morning., Disp: 180 capsule, Rfl: 3 oxybutynin XL (DITROPAN-XL) 10 mg 24 hr tablet, Take 1 tablet (10 mg total) by mouth daily with breakfast., Disp: , Rfl: therapeutic multivitamin (THERAGRAN) tablet, Take 1 tablet by mouth daily with dinner., Disp: , Rfl: UBRELVY 100 mg tablet, Take 100 mg by mouth once as needed (migraine) for up to 1 dose., Disp: 16 tablet, Rfl: 12 zafirlukast (ACCOLATE) 20 mg tablet, Take 1 tablet (20 mg total) by mouth in the morning and 1 tablet (20 mg total) before bedtime., Disp: , Rfl: cyanocobalamin (VITAMIN B12) 1,000 mcg tablet, sublingual, Place 1 tablet (1,000 mcg total) under the tongue in the morning., Disp: 30 tablet, Rfl: 11 Allergies Allergen Reactions Indocin [Indomethacin] Hypotension fainting [...] Rash Tolerated cefazolin in June of 2021. Family History Problem Relation Age of Onset [...] Disorder Neg Hx Clotting disorder Neg Hx Social History: reports that she has never smoked. She has been exposed to tobacco smoke. She has never used smokeless tobacco. She reports that she does not drink alcohol and does not use drugs. Review of Systems: 12 systems were reviewed and were negative except for what has been mentioned above Physical Exam: Vitals: 12/06/24 1148 BP: 117/70 Pulse: 87 Weight: 68 kg (149 lb 14.4 oz) General: The patient is a pleasant female in no apparent distress. HEENT: PERRL, EOMI, there is no lid lag, proptosis, or periorbital edema. OP clear. Neck: Thyroid is not palpable. There are no bruits. No palpable cervical lymph nodes. Heart: RRR no murmurs, rubs, or gallops. Lungs: Clear to auscultation. Extremities: There is no tremor with outstretched arms. No LE edema. Skin/Nails: No lesions visible. Neuro: A & O x 3. Deep tendon reflexes are 2+ with normal relaxation phase. Psych: Mood and affect are appropriate. Labs: TSH: Lab Results Component Value Date TSH 1.37 07/10/2024 Assessment: Angela Ruth presents today for evaluation of hypothyroidism and osteoporosis 1. Hypothyroidism, unspecified type 2. Age-related osteoporosis without current pathological fracture 3. Vitamin D deficiency Treatment options including Evenity, Prolia, Reclast discussed with patient Patient chose to Evenity, no history of heart attacks or strokes in the last 1 year which is a contraindication for Evenity Patient will get Evenity close to home Gladys gonzales to arrange once she starts Evenity she will stop taking the alendronate she was been on alendronate/Fosamax 70 mg weekly for more than 5 years so the risk of atypical femoral fractures is high after 5 years so will transition over as her bone density is not improving on alendronate therapy Lab Results Component Value Date CALCIUM 9.5 07/10/2024 CALCIUM 9.4 02/11/2024 CALCIUM 9.4 2023 CREATININE 1.01 (H) 02/11/2024 CREATININE 1.28 (H) 2023 CREATININE 0.77 03/03/2023 Lab Results Component Value Date VITD25 78.8 07/10/2024 VITD25 58.9 2023 VITD25 66.3 07/07/2022 VITD25 63.4 08/14/2021 Lab Results Component Value Date TSH 1.37 07/10/2024 TSH 0.60 01/11/2024 TSH 3.21 2023 T4 1.24 07/10/2024 T4 1.09 01/11/2024 T4 1.03 2023 T3 4.12 (H) 08/14/2021 T3 3.95 (H) 11/01/2018 T3 4.00 (H) 10/23/2016 Refill thyroid prescription. MEDICAL DECISION MAKING- DIAGNOSIS, DATA, TREATMENT -multiple chronic conditions reviewed and addressed -tests, notes , imaging listed, annotated reviewed, ordered and interpreted -prescription management including review and refills done as needed More than 2 chronic illnesses addressed at this visit along with at least 1 prescription management. This note was created with the assistance of a speech-recognition program. Although the intention is to generate a document that actually reflects the content of the visit, no guarantees can be provided that every mistake has been identified and corrected by editing. Patient was encouraged to review the note and send a message in case there are any corrections/updates that need to be done to the note. Return to clinic: 6 months with doctor John Johnson MD, MPH, [facility] [address] [address] Dept: [phone] FAX: [phone] documented in this encounter [facility] 11-29-2024 Telephone encounter Note Approvals with refills [facility] 11-29-2024 Miscellaneous Notes Approvals with refills documented in this encounter [facility] 11-06-2024 Telephone encounter Note Approvals with refills [facility] 11-06-2024 Miscellaneous Notes Approvals with refills documented in this encounter [facility] 10-30-2024 History of Present illness Narrative Images [...] empty stomach Orally Mon thru Wed, skip Wednesday, Disp: , Rfl: lisinopril-hydroCHLOROthiazide 20-12.5 [...] (four) hours., Disp: 18 g, Rfl: 11 rvotuqsoov-xsaxahaptoppu-ftjfhnp e 50-325-40 MG tablet, Take 1 tablet [...] Procedure Laterality Date ADENOIDECTOMY 1952 APPENDECTOMY 1965 BREAST BIOPSY x4 - [id number] CHOLECYSTECTOMY 2002 EYE SURGERY 01/21/2023 retinal repair [facility] HEMANGIOMA EXCISION 194 from upper back HYSTERECTOMY 1983 KNEE SURGERY Bilateral arthroscopic knee surgery x3 (Rx2, Lx1) ([id number]) LAPAROTOMY OOPHERECTOMY 1985 LUMBAR DISCECTOMY 1990 partial LUMBAR DISCECTOMY 01/14/2017 Microdiscetomy L5-S1 LUMBAR DISCECTOMY 07/03/2021 L1-2 partial discectomy, L1-2, L2-3 cleaning out of stenosis in the spinal canal [facility] LUMBAR EPIDURAL INJECTION 12/20/2020 Dr Clifton RADIOFREQUENCY [...] Father's Brother Jesús Baer Cancer Mother's Sister Jannettejenna Nascimento Cancer Mother's Sister Nisa Dunham Cancer Mother's Sister Janet Mejia COPD Father's Brother Jluis Baer Early natural Mother's Sister Lorna Fawadsilvia Mental illness Neg Hx Drug abuse Neg [...] corrected. Thank you for your understanding. Santo Christinason DPM documented in this encounter [facility] 10-30-2024 Instructions Santo Christianson DPM - 10/30/2024 1:45 PM EST As noted documented in this encounter [facility] 10-06-2024 Telephone encounter Note Voicemail left for Angela at [phone]. Call back number given. 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 My note was forward to Dr. Hoover for review. At this time we recommend follow up and new imaging in 1 year. Rose Velasquez MSN, MEAT DRESSER, WELDING MACHINE OPERATOR [employer] Certified Nurse Practitioner [facility] Work Phone: 10-06-2024 Miscellaneous Notes Voicemail left for Angela at [phone]. Call back number given. 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 My note was forward to Dr. Hoover for review. At this time we recommend follow up and new imaging in 1 year. Rose Velasquez MSN, MEAT DRESSER, WELDING MACHINE OPERATOR [employer] Certified Nurse Practitioner General Call Caller : Angela Contact Reason for Call : Did you speak with Dr. Hoover regarding her most recent appt? Patient requesting return call ? Yes documented in this encounter [facility] 10-04-2024 Telephone encounter Note General Call Caller : Angela Contact Reason for Call : Did you speak with Dr. Hoover regarding her most recent appt? Patient requesting return call ? Yes [facility] 09-26-2024 Note HNO ID: [id number] Author: ROSE VELASQUEZ APRN.WELDING MACHINE OPERATOR [employer] Service: ? Author Type: Nurse Practitioner Type: Progress Notes Filed: 09/26/2024 15:27 Note Text: [facility] NEURO-ONCOLOGY OUTPATIENT CLINIC NOTE [...] side to side (more content not included)... [facility] 09-26-2024 History of Present illness Narrative Images from the original note were not included. [facility] NEURO-ONCOLOGY OUTPATIENT CLINIC NOTE [...] DATE OF EXAM: Sep 26 2024 12:29PM IRENE Mac - MRI BRAIN WO/W IVCON / PROCEDURE [...] petrous ridge presumed meningioma compared to 03/02/2024. Snap Shearer: PSCB Transcribe Date/Time: Sep 26 2024 2:10P Dictated [...] - All questions were answered. Rose Velasquez APRN.WELDING MACHINE OPERATOR [employer] Certified Nurse Practitioner cc: Mandi Hoover MD - Epic documented in this encounter [facility] 09-26-2024 History of Present illness Narrative Radiology [...] TIME: 11:27 AM documented in this encounter [facility] 09-26-2024 Note HNO ID: [id number] Author: JESSICA HOWELL RN Service: Nursing Author [...] DATE: September 26, 2024 TIME: 11:27 AM [facility] 08-29-2024 History of Present illness Narrative Images from the original note were not included. [address] [place] [id number] Patient: Angela Ruth Date of : 1945 [...] June as well as March 2024. Also [facility] 4 prior surgeries on L1-L5. PVR minimal. [...] (benign paroxysmal positional vertigo) Brain tumor (benign) ([facility]) Breast disorder 4 biopsies Bronchitis 01/01/2017 Cancer ([facility]) Basal cell Carpal tunnel syndrome Cataract [...] COLONOSCOPY w/ bx N/A 07/07/2018 Performed by Alexander Leach MD at [facility] ENDOSCOPY COSMETIC SURGERY 1984 DISCECTOMY 1989 Partial L4-5 EGD 2001 EYE SURGERY 2015 FOOT SURGERY 2009 Reattachment of tendon left foot with bone graft HIP SURGERY 2004 Excision of bursa left hip HYSTERECTOMY 1984 INJECTION BLOCK EPIDURAL STEROID LUMBAR/SACRAL Left L 5,1 NR Left 12/20/2020 Performed by Shubham Clifton MD at [facility] NERVE MEDIAL BRANCH right C 4/5,5/6 Right 05/22/2022 Performed by Shubham Clifton MD at [facility] NERVE MEDIAL BRANCH right C 4/5,5/6 Right 04/17/2022 Performed by Shubham Clifton MD at [facility] CAUDAL EPIDURAL WITH CATHETER, STEROID N/A 03/07/2018 Performed by Shubham Clifton MD at [facility] LARGE JOINT BURSA: bilat hip Bilateral 12/10/2017 Performed by Shubham Clifton MD at [facility] MEDIAL BRANCH NERVE BLOCK Bilateral L 4/5, 5/ Bilateral 06/28/2017 Performed by Shubham Clifton MD at [facility] MEDIAL BRANCH NERVE BLOCK Right L 2/3, 3/4 Right 12/08/2019 Performed by Shubham Clifton MD at [facility] MEDIAL BRANCH NERVE BLOCK RIGHT L23 34 Right 01/19/2020 Performed by Shubham Clifton MD at [facility] SI JOINT Bilateral 04/09/2017 Performed by Shubham Clifton MD at [facility] SI JOINT Bilateral SI Joint Bilateral 05/31/2020 Performed by Shubham Clifton MD at [facility] SI JOINT Left SI JOint Left 01/06/2019 Performed by Shubham Clifton MD at [facility] SI JOINT Right SI Joint Right 06/09/2019 Performed by Shubham Clifton MD at [facility] SPINE TRANSFORAMINAL Left L 4, 5 NR Left 09/24/2017 Performed by Shubham Clifton MD at [facility] SPINE TRANSFORAMINAL Left L 5,1 Nroot Left 01/08/2023 Performed by Shubham Clifton MD at [facility] SPINE TRANSFORAMINAL Right L 5,1 Nroot Right 11/27/2022 Performed by Shubham Clifton MD at [facility] STEROID EPI 1 WITH SEDATION Left 5,1 NR Left 05/08/2019 Performed by Shubham Clifton MD at [facility] KNEE ARTHROSCOPY 2013 KNEE SURGERY 2010 2013 Arthroscopy bilateral/repair meniscus right X2, left X1 LAMINECTOMY LUMBAR FORAMENOTOMY MULTI LEVEL L1-2 RIGHT/L2-3 BILATERAL/LUMBAR DRAIN INSERTION N/A 07/03/2021 Performed by Ileana Cortes MD at [facility] LAPAROTOMY OOPHERECTOMY Bilateral 1983 LUMBAR DISCECTOMY LUMBAR FUSION 2010 L3-5 LUMBAR LAMINECTOMY MICRO LUMBAR DISCECTOMY L5-S1/ FORAMINOTOMY L5-S1 Left 01/14/2017 Performed by Ileana Cortes MD at [facility] OOPHORECTOMY 1982 OTHER SURGICAL HISTORY Knee Arthroscopy With Medial Meniscus Repair OTHER SURGICAL HISTORY Spinal Diskectomy RADIO FREQUENCY ABLATION Left L 4/5, 5/ Left 12/02/2018 Performed by Shubham Clifton MD at [facility] RADIO FREQUENCY ABLATION Left L 4/5, 5/1 Left 07/30/2017 Performed by Shubham Clifton MD at [facility] RADIO FREQUENCY ABLATION Left SI joint Left 03/31/2019 Performed by Shubham Clifton MD at [facility] RADIO FREQUENCY ABLATION Right L2/3, 3/4 Right 03/29/2020 Performed by Shubham Clifton MD at [facility] RADIOFREQUENCY ABLATION SPINAL Left Si joint Left 05/07/2017 Performed by Shubham Clifton MD at [facility] RADIOFREQUENCY ABLATION SPINAL Right C 4/5,5/6 Right 06/26/2022 Performed by Shubham Clifton MD at [facility] RADIOFREQUENCY ABLATION SPINAL RIGHT SI JOINT Right 05/21/2017 Performed by Shubham Clifton MD at [facility] RELEASE CARPAL TUNNEL Left 11/04/2021 [...] mg total) by mouth in the morning. gkjuexk-zvrpendxtwgpk-rctqtgyg (EXCEDRIN MIGRAINE) 250-250-65 mg per tablet Take [...] orders for this visit: Urge incontinence - [facility] Genito-Urinary Surgeons - BETTE Carvajal - POCT Urinalysis Auto, W/O Microscopy - Measure post void residual Problem List Genitourinary Urge incontinence Overview 08/29/2024: Urge incontinence. Multifactorial including her back issues, constipation, caffeine consumption. Recommended decreasing caffeine as well as addressing constipation with qxww-qas-ijbwcnd agents. If no improvement can add beta [...] for your understanding. documented in this encounter [facility] [email or web address] [facility] 08-22-2024 Miscellaneous Notes Medication Refill request: Medication Name and Strength:FeroSuL 325 mg (65 mg iron) tablet Current dose & Frequency: take 1 tablet by mouth every morning and 1 tablet every evening with meals 30 day or 90 day supply preferred: Pharmacy Name: [facility] [address] [place] [id number] Hours: Not open 24 hours Request was made by: Patient documented in this encounter [facility] 08-22-2024 Telephone encounter Note Medication Refill request: Medication Name and Strength:FeroSuL 325 mg (65 mg iron) tablet Current dose & Frequency: take 1 tablet by mouth every morning and 1 tablet every evening with meals 30 day or 90 day supply preferred: Pharmacy Name: [address] [address] Hours: Not open 24 hours Request was made by: Patient [facility] 08-14-2024 History of Present illness Narrative Images [...] past. She does not currently have an atomizer assembler. SUBJECTIVE: MEDICATIONS: Current Outpatient Medications Medication Instructions albuterol HFA 90 mcg/act inhaler 2 puffs, Inhalation, Every 4 hours alendronate (FOSAMAX) 70 mg, Oral, Every 7 days amitriptyline (ELAVIL) 50 mg, Oral, Nightly Ascorbic Acid (vitamin C) 1000 MG tablet Every 24 hours aspirin 81 mg, Oral, Daily RT atorvastatin (LIPITOR) 40 mg, Oral, Daily buprenorphine (Butrans) 7.5 MCG/HR 1 patch, Transdermal, Weekly rlyfzmrqnc-pjetmbpuawkzi-bvbalua e 50-325-40 MG tablet 1 tablet, Oral, [...] provided. She does not currently have an atomizer assembler but is open to seeing one. A COVID-19 test was conducted today, which returned negative. She is advised to stay hydrated. If her condition deteriorates, a repeat COVID-19 test will be necessary. documented in this encounter [facility] 08-08-2024 History of Present illness Narrative Angela [...] (Butrans) 7.5 MCG/HR 1 patch, Transdermal, Weekly cvgkityuqb-opgtgqbdynpxo-oydxait e 50-325-40 MG tablet 1 tablet, Oral, [...] 1953 APPENDECTOMY 1965 BREAST BIOPSY x4 - [id number] CHOLECYSTECTOMY 2002 EYE SURGERY 01/21/2023 retinal repair [facility] HEMANGIOMA EXCISION 1946 from upper back HYSTERECTOMY 1984 KNEE SURGERY Bilateral arthroscopic knee surgery x3 (Rx2, Lx1) ([id number]) LAPAROTOMY OOPHERECTOMY 1985 LUMBAR DISCECTOMY 1989 partial LUMBAR DISCECTOMY 01/14/2017 Microdiscetomy L5-S1 LUMBAR DISCECTOMY 07/03/2021 L1-2 partial discectomy, L1-2, L2-3 cleaning out of stenosis in the spinal canal [facility] LUMBAR EPIDURAL INJECTION 12/20/2020 Dr Clifton RADIOFREQUENCY [...] Never Depression: At risk (07/13/2024) Received from [facility] PHQ-2 Total Score: 3 REVIEW OF SYMPTOMS: [...] 25 mg were renewed and [facility] to [facility]. Follow-up The patient will follow up in 4 months. documented in this encounter [facility] 07-10-2024 History of Present illness Narrative Angela [...] consulted with Dr. Romano, a urologist in [place], some time ago but has not sought [...] (Butrans) 7.5 MCG/HR 1 patch, Transdermal, Weekly uhkoyytfbg-blvpokdzltnwa-uqtmmco e 50-325-40 MG tablet 1 tablet, Oral, [...] an hour after taking 100mg hydralazine. Lactobacillus (Deborah Women) capsule as directed Orally levothyroxine (Synthroid, Levoxyl) 150 MCG tablet 1 tablet in the morning on an empty stomach Orally Mon thru Sat, skip Wednesday lisinopril-hydroCHLOROthiazide 20-12.5 MG tablet 1 [...] 1953 APPENDECTOMY 1965 BREAST BIOPSY x4 - [id number] CHOLECYSTECTOMY 2002 EYE SURGERY 01/21/2023 retinal repair [facility] HEMANGIOMA EXCISION 1946 from upper back HYSTERECTOMY 1984 KNEE SURGERY Bilateral arthroscopic knee surgery x3 (Rx2, Lx1) ([id number]) LAPAROTOMY OOPHERECTOMY 1985 LUMBAR DISCECTOMY 1989 partial LUMBAR DISCECTOMY 01/14/2017 Microdiscetomy L5-S1 LUMBAR DISCECTOMY 07/03/2021 L1-2 partial discectomy, L1-2, L2-3 cleaning out of stenosis in the spinal canal [facility] LUMBAR EPIDURAL INJECTION 12/20/2020 Dr Clifton RADIOFREQUENCY [...] Depression: Not at risk (03/10/2024) Received from [facility], [facility] PHQ-2 Total Score: 0 REVIEW OF SYMPTOMS: [...] by Dr. Márquez documented in this encounter [facility] 04-04-2024 Instructions Anson Ennis MD - 04/04/2024 12:35 PM EDT - obtain follow up MRI brain wwo in 6 months - please follow up with your cook vegetable (we do not think the etiology of your hearing loss is due to your meningioma) - our team will notify Dr. Bia Cao regarding these findings; we recommend investigating other etiologies of imbalance in Mrs. Ruth documented in this encounter [facility] 04-04-2024 Nurse Note Additional intake questions: Has the patient had fever, nausea, vomiting, diarrhea, constipation, fatigue for > 1 week? No Does the patient have a decreased appetite? No Does patient want to see a Feed Blender? No (yes to any of above refer patient to schedulers for dietitian appointment) ) Does patient have any new or increased numbness or tingling of extremities? No Is patient interested in fertility information? No Does patient need any prescription refills? No Does patient have an advanced directive in place? Yes, no copy found in [facility] Patient referred to [facility] Electronically Signed By: Josette Sheppard MA [facility] 04-04-2024 Nurse Note Additional intake questions: Has the patient had fever, nausea, vomiting, diarrhea, constipation, fatigue for > 1 week? No Does the patient have a decreased appetite? No Does patient want to see a Feed Blender? No (yes to any of above refer patient to schedulers for dietitian appointment) ) Does patient have any new or increased numbness or tingling of extremities? No Is patient interested in fertility information? No Does patient need any prescription refills? No Does patient have an advanced directive in place? Yes, no copy found in [facility] Patient referred to [facility] Electronically Signed By: Josette Sheppard MA documented in this encounter [facility] 04-04-2024 History of Present illness Narrative Images from the original note were not included. SECTION OF SKULL BASE SURGERY MINIMALLY INVASIVE CRANIAL BASE & PITUITARY SURGERY PROGRAM Jessica Caro [facility] Ne[facility] [place], [facility] CC: Patient Care Team: Bia Cao as PCP ([facility]) Ileana Cortes MD as NI Referring Team [...] 6 months with a repeat MRI scan (Reagan/West side preference) and clinic visit with one of our skull base team advance practice providers (Danni/West side preference). - follow up with cook vegetable for hearing loss which is unrelated to [...] Patient is accompanied by her granddaughter (her pile driver operator helper) and great grand daughter). The patient is [...] contrast and shows a 1.2 cm R SPECIAL WEAPONS UNIT OFFICER contrast-enhancing lesion concerning for either schwannoma or meningioma- no associated mass effect or edema. The patient takes ASA 81 mg daily for cardioprotection per her PCP. The patient has been using a cane for the last 5-6 years. The patient reports that ~6 weeks ago, she walked into her garage door and fell. The patient has not seen an cook vegetable or a vestibular therapist. Past Medical History: [...] contrast and shows a 1.2 cm R SPECIAL WEAPONS UNIT OFFICER contrast-enhancing lesion extra-axial mass arising from the right posterior petrous ridge with no significant mass effect and not abutting the right vestibular cochlear complex. documented in this encounter [facility] 04-04-2024 Note HNO ID: [id number] Author: MANDI HOOVER MD Service: ? Author Type: Physician Type: Progress Notes Filed: 04/05/2024 17:50 Note Text: SECTION OF SKULL BASE SURGERY MINIMALLY INVASIVE CRANIAL BASE AND PITUITARY SURGERY PROGRAM Jessica Caro [facility] Ne[facility] [place] CC: Patient Care Team: Bia Cao as PCP ([facility]) Ileana Cortes MD as NI Referring Team [...] our skull base team advance practice providers (Reagan/West side preference). - follow up with cook vegetable for hearing loss which is unrelated to [...] Patient is accompanied by her granddaughter (her pile driver operator helper) and great grand daughter). The patient is [...] contrast and shows a 1.2 cm R SPECIAL WEAPONS UNIT OFFICER contrast-enhancing lesion concerning for either schwannoma or meningioma- no associated mass effect or edema. The patient takes ASA 81 mg daily for cardioprotection per her PCP. The patient has been using a cane for the last 5-6 years. The patient reports that ~6 weeks ago, she walked into her garage door and fell. The patient has not seen an cook vegetable or a vestibular therapist. Past Medical History: [...] mg (VYTORIN) 10-40 (more content not included)... [facility] 03-28-2024 Telephone encounter Note Called patient to schedule an appointment. No ans/left message to call the office back. Appointment scheduled: 04/04/2024 10:30 AM (Arrive by 10:15 AM) Mandi Hoover MD [facility] Etelvina Trujillo PAC [facility] 03-28-2024 Miscellaneous Notes Called patient to schedule an appointment. No ans/left message to call the office back. Appointment scheduled: 04/04/2024 10:30 AM (Arrive by 10:15 AM) Mandi Hoover MD [facility] Etelvina Trujillo PAC Time Frame: First available Provider: Kiko Landrum Soni Referring: Ileana Cortes MD Images to be requested from [facility] Dx: Right CPA mass Patient: Angela Ruth Address: Angela Ruth [id number] [place] [address] [place] [address] Per Triage: HISTORY OF PRESENT ILLNESS Angela [...] 28, 2024 Referral source: Ileana Cortes MD ([facility]) Reason for visit: consideration of gamma knife for 1.2 cm enhancing lesion at right cerebelloponitine angle with leading differential including vestibular schwannoma and meningioma External records: Sent with referral and pulled from [facility] Triage: Required, forwarded to [facility] by telephone encounter sent to [facility] Scheduling Triage. Financial clearance: Not required to schedule documented in this encounter [facility] 03-28-2024 Telephone encounter Note Time Frame: First available Provider: Kiko Landrum Soni Referring: Ileana Cortes MD Images to be requested from [facility] Dx: Right CPA mass Patient: Angela Ruth Address: Angela Ruth [id number] [place] [address] [place] [address] Per Triage: HISTORY OF PRESENT ILLNESS Angela [...] extracranial soft tissues are unremarkable. Rose Velasquez APRN.WELDING MACHINE OPERATOR [employer] March 28, 2024 [facility] 03-24-2024 Telephone encounter Note Referral source: Ileana Cortes MD ([facility]) Reason for visit: consideration of gamma knife for 1.2 cm enhancing lesion at right cerebelloponitine angle with leading differential including vestibular schwannoma and meningioma External records: Sent with referral and pulled from [facility] Triage: Required, forwarded to [facility] by telephone encounter sent to [facility] Scheduling Triage. Financial clearance: Not required to schedule [facility] 02-24-2024 History of Present illness Narrative Images [...] Breast disorder 4 biopsies Bronchitis 01/01/2017 Cancer ([facility]) Basal cell Carpal tunnel syndrome Cataract [...] COLONOSCOPY w/ bx N/A 07/07/2018 Performed by Alexander Leach MD at [facility] ENDOSCOPY COSMETIC SURGERY 1984 DISCECTOMY 1989 Partial L4-5 EGD 2001 EYE SURGERY 2015 FOOT SURGERY 2009 Reattachment of tendon left foot with bone graft HIP SURGERY 2004 Excision of bursa left hip HYSTERECTOMY 1983 INJECTION BLOCK EPIDURAL STEROID LUMBAR/SACRAL Left L 5,1 NR Left 12/20/2020 Performed by Shubham Clifton MD at [facility] INJECTION BLOCK NERVE MEDIAL BRANCH right C 4/5,5/6 Right 05/22/2022 Performed by Shubham Clifton MD at [facility] INJECTION BLOCK NERVE MEDIAL BRANCH right C 4/5,5/6 Right 04/17/2022 Performed by Shubham Clifton MD at [facility] CAUDAL EPIDURAL WITH CATHETER, STEROID N/A 03/07/2018 Performed by Shubham Clifton MD at [facility] LARGE JOINT BURSA: bilat hip Bilateral 12/10/2017 Performed by Shubham Clifton MD at [facility] MEDIAL BRANCH NERVE BLOCK Bilateral L 4/5, 5/1 Bilateral 06/28/2017 Performed by Shubham Clifton MD at [facility] MEDIAL BRANCH NERVE BLOCK Right L 2/3, 3/4 Right 12/08/2019 Performed by Shubham Clifton MD at [facility] MEDIAL BRANCH NERVE BLOCK RIGHT L23 34 Right 01/19/2020 Performed by Shubham Clifton MD at [facility] SI JOINT Bilateral 04/09/2017 Performed by Shubham Clifton MD at [facility] SI JOINT Bilateral SI Joint Bilateral 05/31/2020 Performed by Shubham Clifton MD at [facility] SI JOINT Left SI JOint Left 01/06/2019 Performed by Shubham Clifton MD at [facility] INJECTION SI JOINT Right SI Joint Right 06/09/2019 Performed by Shubham Clifton MD at [facility] SPINE TRANSFORAMINAL Left L 4, 5 NR Left 09/24/2017 Performed by Shubham Clifton MD at [facility] SPINE TRANSFORAMINAL Left L 5,1 Nroot Left 01/08/2023 Performed by Shubham Clifton MD at [facility] SPINE TRANSFORAMINAL Right L 5,1 Nroot Right 11/27/2022 Performed by Shubham Clifton MD at [facility] STEROID EPI 1 WITH SEDATION Left 5,1 NR Left 05/08/2019 Performed by Shubham Clifton MD at [facility] KNEE ARTHROSCOPY 2013 KNEE SURGERY 2010 2013 Arthroscopy bilateral/repair meniscus right X2, left X1 LAMINECTOMY LUMBAR FORAMENOTOMY MULTI LEVEL L1-2 RIGHT/L2-3 BILATERAL/LUMBAR DRAIN INSERTION N/A 07/03/2021 Performed by Ileana Cortes MD at [facility] LAPAROTOMY OOPHERECTOMY Bilateral 1984 LUMBAR DISCECTOMY LUMBAR FUSION 2009 L3-5 LUMBAR LAMINECTOMY MICRO LUMBAR DISCECTOMY L5-S1/ FORAMINOTOMY L5-S1 Left 01/14/2017 Performed by Ileana Cortes MD at [facility] OOPHORECTOMY 1983 OTHER SURGICAL HISTORY Knee Arthroscopy With Medial Meniscus Repair OTHER SURGICAL HISTORY Spinal Diskectomy RADIO FREQUENCY ABLATION Left L 4/5, 5/1 Left 12/02/2018 Performed by Shubham Clifton MD at [facility] RADIO FREQUENCY ABLATION Left L 4/5, 5/1 Left 07/30/2017 Performed by Shubham Clifton MD at [facility] RADIO FREQUENCY ABLATION Left SI joint Left 03/31/2019 Performed by Shubham Clifton MD at [facility] RADIO FREQUENCY ABLATION Right L2/3, 3/4 Right 03/29/2020 Performed by Shubham Clifton MD at [facility] RADIOFREQUENCY ABLATION SPINAL Left Si joint Left 05/07/2017 Performed by Shubham Clifton MD at [facility] RADIOFREQUENCY ABLATION SPINAL Right C 4/5,5/6 Right 06/26/2022 Performed by Shubham Clifton MD at [facility] RADIOFREQUENCY ABLATION SPINAL RIGHT SI JOINT Right 05/21/2017 Performed by Shubham Clifton MD at [facility] RELEASE CARPAL TUNNEL Left 11/04/2021 Performed by Ileana Corets MD at [facility] SHOULDER SURGERY 2012 Right rotator cuff SKIN [...] mouth in the morning., Disp: , Rfl: wtookqq-qymhlrkdfksfw-rxvktpnp (EXCEDRIN MIGRAINE) 250-250-65 mg per tablet, Take 1 tablet by mouth every 6 (six) hours as needed for headaches., Disp: , Rfl: atorvastatin (LIPITOR) 40 mg tablet, Take 1 tablet (40 mg total) by mouth in the morning., Disp: , Rfl: buprenorphine (BUTRANS) 7.5 mcg/hour patch weekly, Place 1 patch on the skin once a week., Disp: , Rfl: fgkcmrajou-arfaungwlwtrx-zgas (ESGIC) 50-325-40 mg per tablet, Take 1 [...] (FOSAMAX) 35 mg tablet Dose adjustment pediatric vxolaaxp-qzzx-mkv (flintstones complete) tablet,chewable Duplicate Listing Total time spent was 30 minutes which did not include hxqb-xt-jzso contact with the patient: Preparing to see the patient (e.g., review of tests) Obtaining and/or reviewing separately obtained history Referring and communicating with other health animal care attendant (not separately reported) Documenting clinical information in the electronic or other health record Independently interpreting results (not separately reported) and communicating results to the patient/family/caregiver The note was completed using EMR. Every effort was made to ensure accuracy; however, inadvertent computerized project scientist errors may be present. CARDIOVASCULAR STUDIES: EKG: No results found. ECHO: No results found. Stress Test: No results found. Cath: No results found. Device: Other: RYAN DALLAS MD documented in this encounter [facility] [email or web address] [facility] 02-09-2024 Miscellaneous Notes Patient called and [...] Modules accepted: Orders documented in this encounter [facility] 02-09-2024 Note Addended by: Anna HAWKINS on: 02/10/2024 12:55 PM Modules accepted: Orders [facility] 02-09-2024 Telephone encounter Note Patient called and stated her bp has been elevated. She c/o Headache. 184/92, 224/95 217/93 she took an extra 50mg hydralazine as you have directed PRN and bp 146/78. Please advise going forward. [facility] 02-09-2024 Telephone encounter Note Increase hydralazine to 100 mg twice a day [facility] 02-09-2024 Telephone encounter Note I left patient a voicemail to call me back to verify the dose she is taking now of hydralazine. [facility] 02-09-2024 Telephone encounter Note I spoke to patient and she stated she is taking hydralazine 100mg daily. She is reluctant to try BID as it previously caused hypotension. Patient will try and then keep a bp log. [facility] 01-07-2024 History of Present illness Narrative Images [...] (migraines) Inderal (tremors) Gabapentin 200 mg nightly Avinger PRN Occipital nerve blocks (last 03/2021) Tizanidine [...] Breast disorder 4 biopsies Bronchitis 01/01/2017 Cancer ([facility]) Basal cell Carpal tunnel syndrome [...] COLONOSCOPY w/ bx N/A 07/07/2018 Performed by Alexander Leach MD at [facility] ENDOSCOPY COSMETIC SURGERY 1985 DISCECTOMY 1989 Partial L4-5 EGD 2001 EYE SURGERY 2014 FOOT SURGERY 2009 Reattachment of tendon left foot with bone graft HIP SURGERY 2003 Excision of bursa left hip HYSTERECTOMY 1983 INJECTION BLOCK EPIDURAL STEROID LUMBAR/SACRAL Left L 5,1 NR Left 12/20/2020 Performed by Shubham Clifton MD at [facility] INJECTION BLOCK NERVE MEDIAL BRANCH right C 4/5,5/6 Right 05/22/2022 Performed by Shubham Clifton MD at [facility] INJECTION BLOCK NERVE MEDIAL BRANCH right C 4/5,5/6 Right 04/17/2022 Performed by Shubham Clifton MD at [facility] INJECTION CAUDAL EPIDURAL WITH CATHETER, STEROID N/A 03/07/2018 Performed by Shubham Clifton MD at [facility] INJECTION LARGE JOINT BURSA: bilat hip Bilateral 12/10/2017 Performed by Shubham Clifton MD at [facility] INJECTION MEDIAL BRANCH NERVE BLOCK Bilateral L 4/5, 5/1 Bilateral 06/28/2017 Performed by Shubham Clifton MD at [facility] IN[facility]CTION MEDIAL BRANCH NERVE BLOCK Right L 2/3, 3/4 Right 12/08/2019 Performed by Shubham Clifton MD at [facility] INJECTION MEDIAL BRANCH NERVE BLOCK RIGHT L23 34 Right 01/19/2020 Performed by Shubham Clifton MD at [facility] INJECTION SI JOINT Bilateral 04/09/2017 Performed by Shubham Clifton MD at [facility] SI JOINT Bilateral SI Joint Bilateral 05/31/2020 Performed by Shubham Clifton MD at [facility] IN[facility]CTION SI JOINT Left SI JOint Left 01/06/2019 Performed by Shubham Clifton MD at [facility] INJECTION SI JOINT Right SI Joint Right 06/09/2019 Performed by Shubham Clifton MD at [facility] SPINE TRANSFORAMINAL Left L 4, 5 NR Left 09/24/2017 Performed by Shubham Clifton MD at [facility] INJECTION SPINE TRANSFORAMINAL Left L 5,1 Nroot Left 01/08/2023 Performed by Shubham Clifton MD at [facility] INJECTION SPINE TRANSFORAMINAL Right L 5,1 Nroot Right 11/27/2022 Performed by Shubham Clifton MD at [facility] INJECTION STEROID EPI 1 WITH SEDATION Left 5,1 NR Left 05/08/2019 Performed by Shubham Clifton MD at [facility] KNEE ARTHROSCOPY 2010, 2013 KNEE [...] 12/02/2018 Performed by Shubham Clifton MD at [facility] RADIO FREQUENCY ABLATION Left L 4/5, 5/1 Left 07/30/2017 Performed by Shubham Clifton MD at [facility] RADIO FREQUENCY ABLATION Left SI joint Left 03/31/2019 Performed by Shubham Clifton MD at [facility] RADIO FREQUENCY ABLATION Right L2/3, 3/4 Right 03/29/2020 Performed by Shubham Clifton MD at [facility] RADIOFREQUENCY ABLATION SPINAL Left Si joint Left 05/07/2017 Performed by Shubham Clifton MD at [facility] RADIOFREQUENCY ABLATION SPINAL Right C 4/5,5/6 Right 06/26/2022 Performed by Shubham Clifton MD at [facility] RADIOFREQUENCY ABLATION SPINAL RIGHT SI JOINT Right 05/21/2017 Performed by Shubham Clifton MD at [facility] RELEASE CARPAL TUNNEL Left 11/04/2021 [...] mg total) by mouth in the morning. gqwqjnb-vkcappqkavcmv-nqudvtbn (EXCEDRIN MIGRAINE) 250-250-65 mg per tablet Take 1 tablet by mouth every 6 (six) hours as needed for headaches. atorvastatin (LIPITOR) 40 mg tablet Take 1 tablet (40 mg total) by mouth in the morning. buprenorphine (BUTRANS) 7.5 mcg/hour patch weekly Place 1 patch on the skin once a week. nqdrltxdew-mxhsacvumxvmd-bjkx (ESGIC) 50-325-40 mg per tablet Take 1 [...] procedures Referring and communicating with other health animal care attendant (not separately reported) Documenting clinical information in the electronic or other health record Independently interpreting results (not separately reported) and communicating results to the patient/family/caregiver Care coordination (not separately reported) - Yoanna Dorsey DNP, APRN-CNP 01/07/24 10:53 AM [facility] 01/07/24 1053 [facility] Instructions CHACE Rayo - 01/07/2024 10:30 [...] earlier if needed. [facility]13[facility]23 Miscellaneous Notes Okay to sign and send documented in this encounter [facility] 12-13-2023 Telephone encounter Note Okay to sign and send [facility] Evaluation note Diagnosis General weakness- Primary Other malaise and fatigue History of falling documented in this encounter [facility]* Diagnosis Mixed hyperlipidemia (CMS/HCC)- Primary Mixed hyperlipidemia Stress incontinence of urine documented in this encounter [facility]Evaluation note* Diagnosis General weakness- Primary Other malaise and fatigue History of falling documented in this encounter [facility]Evaluation note* Diagnosis General weakness- Primary Other malaise and fatigue History of falling documented in this encounter [facility]Evaluation note* Diagnosis Migraine without [...] of both ears [facility] Diagnosis Essential hypertension Unspecified essential hypertension [facility] Diagnosis Essential hypertension Unspecified essential hypertension [facility] Diagnosis Essential hypertension- Primary Unspecified essential hypertension LVH (left ventricular hypertrophy) Cardiomegaly Mixed hyperlipidemia Hypotension due to drugs Other iatrogenic hypotension [facility] Diagnosis Brain mass [G93.89]- Primary Unspecified condition of brain [facility] Intracranial meningioma (HCC)- Primary Benign neoplasm of cerebral meninges Sensorineural hearing loss (SNHL) of right ear, unspecified hearing status on contralateral side Dizziness Dizziness and giddiness [facility] Diagnosis Intracranial meningioma (HCC)- Primary Benign neoplasm of cerebral meninges Benign neoplasm of meninges (HCC) Benign neoplasm of cerebral meninges [facility]ge [facility]ence [facility] Diagnosis Benign neoplasm of meninges (HCC)- Primary Benign neoplasm of cerebral meninges Dizziness Dizziness and giddiness [facility] Diagnosis Benign neoplasm of meninges (HCC) Benign neoplasm of cerebral meninges [facility] Diagnosis Dermatophytosis of nail- Primary Dystrophic nail Other specified disease of nail Pain around toenail, right foot Pain around toenail, left foot documented in this encounter [facility]Evaluation note* Diagnosis Hoarse- Primary Dysphonia Purulent postnasal drainage Primary insomnia Persistent disorder of initiating or maintaining sleep Gastroesophageal reflux disease without esophagitis Esophageal reflux documented in this encounter [facility] note* Diagnosis Hyperlipidemia, unspecified hyperlipidemia type (CMS/HCC) documented in this encounter [facility] note* Diagnosis Urinary frequency- Primary Dysuria Chronic idiopathic constipation Unspecified constipation Chronic right-sided thoracic back pain Chronic right-sided thoracic back pain documented in this encounter [facility]Evaluation note* Diagnosis Acute cystitis without hematuria- Primary documented in this encounter [facility] note* Diagnosis Acute bronchitis, unspecified organism- Primary Seasonal allergic rhinitis due to pollen documented in this encounter [facility] note* Diagnosis Anemia, unspecified type- Primary documented in this encounter [facility] note* Diagnosis Hypothyroidism, unspecified type- Primary Age-related osteoporosis without current pathological fracture Vitamin D deficiency [facility]* Diagnosis Osteoporosis, unspecified osteoporosis type, unspecified pathological fracture presence- Primary [facility]* Diagnosis Urinary frequency- Primary Essential hypertension (CMS/HCC) Unspecified essential hypertension Age-related osteoporosis without current pathological fracture ([facility]/HCC) documented in this encounter [facility]Evaluation note* Diagnosis Acute cystitis without hematuria- Primary documented in this encounter [facility]Evaluation note* Diagnosis Gastroesophageal reflux disease without esophagitis Esophageal reflux documented in this encounter [facility] HealthcareInstructionsNot on filedocumented in this [facility]Not on filedocumented in this [facility]Pro[facility] SystemInstructionsNot on filedocumented in this encounterPro[facility] SystemInstructionsNot on filedocumented in this [facility] InstructionsNot on filedocumented in this [facility] InstructionsNot on filedocumented in this [facility] InstructionsNot on filedocumented in this encounterParkwood [facility] SystemReason for referral (narrative)* Consultation (Routine) - Authorized Specialty Diagnoses / Procedures Referred By Violette t Referred To Contact Urology Diagnoses Urinary frequency Procedures MD OFFICE/OUTPATIENT NEW HIGH MDM 60 MINUTES Bia Cao MD [address] [place] [address] Maria C Kramer MD [address] [place] [address] Referral ID Status Reason Start Date Expiration Date Visits Requested Visits Authorized [id number] Authorized Specialty Services Required 07/10/2024 01/06/2025 1 1 [facility] Summary Purpose Family History No Family History Records FoundNo Family History Records FoundNo Family History Records FoundNo Family History Records FoundNo Family History Records FoundNo Family History Records FoundNo Family History Records FoundNo Family History Records FoundNo Family History Records FoundNo Family History Records Found Advance Directives Documents on File Type Date Recorded Patient Garden Consultant Expl anation Durable Power of Candy Attendant 07/16/2021 3:45 PM Living Will 07/16/2021 3:40 [...] Documents on File Type Date Recorded Patient Garden Consultant Expl anation Durable Power of Candy Attendant 07/16/2021 3:45 PM Living Will 07/16/2021 3:40 [...] ears Procedures Hearing Evaluation (Audiology) Yoanna Dorsey APRN-WELDING MACHINE OPERATOR [employer] [address] [place] [address] Referral ID Status Reason Start Date Expiration Date V isits Requested Visits Authorized [id number] Pending Review 01/07/2024 01/06/2025 1 1 Specialty Diagnoses / Procedures Referred By Contac t Referred To Contact MR IMAGING Diagnoses Benign neoplasm of meninges (HCC) Procedures MRI BRAIN WO/W IVCON MRI BRAIN BRAIN STEM W/O W/CONTRAST MATERIAL Mandi Hoover MD [address] [place] [address] [place] [id number] Referral ID Status Reason Start Date Expiration Date Visits Requested Visits Authorized [id number] Pending Review Auto-Generat ed Referral 08/28/2024 06/08/2025 1 1 Specialty Diagnoses / Procedures Referred By Contac t Referred To Contact Diagnoses Urinary frequency Procedures Measure post void residual Maria C Kramer MD [address] [place] [address] Referral ID Status Reason Start Date Expiration Date V isits Requested Visits Authorized [id number] Pending Review 08/29/2024 08/29/2025 1 1 Specialty Diagnoses / Procedures Referred By Contac t Referred To Contact MR IMAGING Diagnoses Benign neoplasm of meninges (HCC) Procedures MRI BRAIN WO/W IVCON MRI BRAIN BRAIN STEM W/O W/CONTRAST MATERIAL Rose Velasquez, MEAT DRESSER.WELDING MACHINE OPERATOR [employer] [address] [place] [address] [place] [id number] Referral ID Status Reason Start Date Expiration Date Visits Requested Visits Authorized [id number] New Request Auto-Generat ed Referral 09/26/2024 10/26/2025 1 1 Referral ID Status Reason Start Date Expiration Date V isits Requested Visits Authorized [id number] Closed Auto-Generate d Referral 08/28/2024 06/08/2025 1 1 Additional Source Comments INFORMATION SOURCE (unrecogn ized section and content) DATE CREATED AUTHOR 05/16/2018 [facility] DATE CREATED AUTHOR AUTHOR'S ORGANIZ ATION 06/21/2019 [facility] DATE CREATED AUTHOR AUTHOR'S ORGANIZ ATION 11/13/2022 [facility] DATE CREATED AUTHOR AUTHOR'S ORGANIZ ATION 12/07/2022 [facility] dical Specialist DATE CREATED AUTHOR AUTHOR'S ORGANIZ ATION 08/31/2024 [facility] DATE CREATED AUTHOR AUTHOR'S ORGANIZ ATION 10/08/2024 [facility] DATE CREATED AUTHOR AUTHOR'S ORGANIZ ATION 12/04/2024 [place] DATE CREATED AUTHOR AUTHOR'S ORGANIZ ATION 12/05/2024 [facility] DATE CREATED AUTHOR AUTHOR'S ORGANIZ ATION 12/09/2024 [facility] DATE CREATED AUTHOR AUTHOR'S ORGANIZ ATION 12/11/2024 [facility] dical Specialists EPIC Reason for Visit (unrecogniz ed section and content) Reason Onset Date Comments Med Refill 12/13/2023 Specialty Diagnoses / Procedures Referred By Contac t Referred To Contact Physical Therapy Diagnoses Muscle weakness (generalized) Procedures TREATMENT Bia Cao MD [address] [place] [address] Jonny Salazar, PT [address] [place] [address] Referral ID Status Reason Start Date Expiration Date V isits Requested Visits Authorized [id number] Authorized 12/08/2023 06/05/2024 99 99 Reason Comments Med Refill Reason Comments Blood Pressure Check Reason Comments Received Outside Medical Records Externa l referral to [facility] [place] triage Nurse Triage Call Appointment Reason Comments Consult Reason Onset Date Comments Med Refill 08/22/2024 Reason Comments Urinary Frequency Specialty Diagnoses / Procedures Referred By Contac t Referred To Contact Urology Diagnoses Urinary frequency Bia Cao MD [address] [place] [address] [facility] [address] [place] [address] Referral ID Status Reason Start Date Expiration Date Visits Requested Visits Authorized [id number] Pending Review Specialty Services Required 07/11/2024 07/11/2025 1 1 Reason Comments New Patient Intracranial Meningi brandon Reason Comments Radiology MRI Specialty Diagnoses / Procedures Referred By Contac t Referred To Contact MR IMAGING Diagnoses Benign neoplasm of meninges (HCC) Procedures MRI BRAIN WO/W IVCON MRI BRAIN BRAIN STEM W/O W/CONTRAST MATERIAL Mandi Hoover MD [address] [place] [address] [place] [address] Referral ID Status Reason Start Date Expiration Date V isits Requested Visits Authorized [id number] Closed Auto-Generate d Referral 08/28/2024 06/08/2025 1 [...] Traci prescribed and is not any better. Reason Comments Follow-up Care Teams (unrecognized sec tion and content) Aircraft Maintenance Director Relationship Specialty Start Date End Date Bia Cao MD [address] [place] [address] PCP - General Family Medicine 02/05/23 Aircraft Maintenance Director Relationship Specialty Start Date End Date Jacob Viveros PCP - [employer] 11/22/22 Bia Cao MD [address] [place] [address] PCP - General Family Medicine 04/29/23 Aircraft Maintenance Director Relationship Specialty Start Date End Date Jacob Viveros PCP - [employer] 11/22/22 Bia Cao MD [address] [place] [address] PCP - General Family Medicine 04/29/23 Aircraft Maintenance Director Relationship Specialty Start Date End Date Jacob Viveros PCP - [employer] 11/22/22 Bia Cao MD [address] [place] [facility] [place] [address] PCP - General Family Medicine 04/29/23 Aircraft Maintenance Director Relationship Specialty Start Date End Date Jacob Viveros PCP - [employer] 11/22/22 Bia Cao MD [address] [place] [address] PCP - General Family Medicine 04/29/23 Aircraft Maintenance Director Relationship Specialty Start Date End Date Jacob Viveros PCP - [employer] 11/22/22 Bia Cao MD [address] [facility] [place] [address] PCP - General Family Medicine 04/29/23 Aircraft Maintenance Director Relationship Specialty Start Date End Date Jacob Viveros PCP - [employer] 11/22/22 Bia Cao MD [address] [place] [address] PCP - General Family Medicine 04/29/23 Aircraft Maintenance Director Relationship Specialty Start Date End Date Bia Cao MD [address] [facility] [place] [address] PCP - General Family Medicine 02/05/23 Aircraft Maintenance Director Relationship Specialty Start Date End Date Bia Cao MD [address] [place] [address] PCP - General Family Medicine 02/05/23 Aircraft Maintenance Director Relationship Specialty Start Date End Date Bia Cao MD [address] [facility] [place] [address] PCP - General Family Medicine 02/05/23 Aircraft Maintenance Director Relationship Specialty Start Date End Date Bia Cao MD [address] [facility] [place] [address] PCP - General Family Medicine 02/05/23 Aircraft Maintenance Director Relationship Specialty Start Date End Date (Hist), No Pcp PCP - General 11/04/17 Ileana Cortes MD [address] [facility] [address] [address] [place] Referring Team Neurosurgery 03/24/24 Aircraft Maintenance Director Relationship Specialty Start Date End Date (Hist), No Pcp PCP - General 11/04/17 Ileana Cortes MD [address] [facility] [address] [place] [address] [place] Referring Team Neurosurgery 03/24/24 Aircraft Maintenance Director Relationship Specialty Start Date End Date (Hist), No Pcp PCP - General 11/04/17 Ileana Cortes MD [address] [address] [place] Referring Team Neurosurgery 03/24/24 Aircraft Maintenance Director Relationship Specialty Start Date End Date Bia Cao MD PCP - General Family Medicine 02/05/23 Aircraft Maintenance Director Relationship Specialty Start Date End Date Bia Cao MD PCP - General Family Medicine 02/05/23 Aircraft Maintenance Director Relationship Specialty Start Date End Date (Hist), No Pcp PCP - General 11/04/17 Ileana Cortes MD [place] Referring Team Neurosurgery 03/24/24 Aircraft Maintenance Director Relationship Specialty Start Date End Date (Hist), No Pcp PCP - General 11/04/17 Ileana Cortes MD [place] Referring Team Neurosurgery 03/24/24 Aircraft Maintenance Director Relationship Specialty Start Date End Date (Hist), No Pcp PCP - General 11/04/17 Ileana Cortes MD [place] Referring Team Neurosurgery 5/3/24 Aircraft Maintenance Director Relationship Specialty Start Date End Date Jackeline, Jacob F PCP - [employer] 11/22/21 Bia Cao MD [address] [place] [address] PCP - General Family Medicine 04/29/23 Aircraft Maintenance Director Relationship Specialty Start Date End Date Jacob Viveros PCP - [employer] 11/22/21 Bia Cao MD [address] [place] [address] PCP - General Family Medicine 04/29/23 Aircraft Maintenance Director Relationship Specialty Start Date End Date Jacob Viveros PCP - [employer] 11/22/21 Bia Cao MD [address] [place] [address] PCP - General Family Medicine 04/29/23 Aircraft Maintenance Director Relationship Specialty Start Date End Date Jacob Viveros PCP - [employer] 11/22/21 Bia Cao MD [address] [place] [address] PCP - General Family Medicine 04/29/23 Aircraft Maintenance Director Relationship Specialty Start Date End Date JackelineAdeline mancinibri Mccormick PCP - [employer] 11/22/21 Bia Cao MD [address] [place] [address] PCP - General Family Medicine 04/29/23 Aircraft Maintenance Director Relationship Specialty Start Date End Date [place]adette manciniJacob F PCP - [employer] 11/22/21 Bia Cao MD [address] [place] [address] PCP - General Family Medicine 04/29/23 Aircraft Maintenance Director Relationship Specialty Start Date End Date Jacob Viveros PCP - [employer] 11/22/21 Bia Cao MD [address] [place] [address] PCP - General Family Medicine 04/29/23 Aircraft Maintenance Director Relationship Specialty Start Date End Date Jacob Viveros PCP - [employer] 11/22/21 Bia Cao MD [address] [place] [address] PCP - General Family Medicine 04/29/23 Aircraft Maintenance Director Relationship Specialty Start Date End Date Jacob Viveros PCP - [employer] 11/22/21 Bia Cao MD [address] [place] [address] PCP - General Family Medicine 04/29/23 Aircraft Maintenance Director Relationship Specialty Start Date End Date Bia Cao MD PCP - General Family Medicine 02/05/23 Aircraft Maintenance Director Relationship Specialty Start Date End Date Bia Cao MD PCP - General Family Medicine 02/05/23 Aircraft Maintenance Director Relationship Specialty Start Date End Date Bia Cao MD [address] [place] [address] PCP - General Family Medicine 04/29/23 Bia Cao MD [address] [place] [address] PCP - [employer] 11/22/21 Aircraft Maintenance Director Relationship Specialty Start Date End Date Bia Cao MD [address] [place] [address] PCP - General Family Medicine 04/29/23 Bia Cao MD [address] [place] [address] PCP - Aet 11/22/21 Aircraft Maintenance Director Relationship Specialty Start Date End Date Bia Cao MD [address] [place] [address] PCP - General Family Medicine 04/29/23 Bia Cao MD [address] [place] [address] PCP - Aet 11/22/21 Aircraft Maintenance Director Relationship Specialty Start Date End Date Bia Cao MD [address] [place] [address] PCP - General Family Medicine 04/29/23 Bia Cao MD [address] [place] [address] PCP - Aet 11/22/21 Source Comments (unrecognize d section and content) In the event this informatio n is protected by the Federal Confidentiality of Alcohol and Drug Abuse Patient Records regulations: The Federal rules restrict any use of the information to criminally investigate or prosecute any alcohol or drug abuse patient.[facility] Center[facility] the event this information is protected by the Federal Confidentiality of Alcohol and Drug Abuse Patient Records regulations: The Federal rules restrict any use of the information to criminally investigate or prosecute any alcohol or drug abuse patient.[facility] Center[facility] the event this information is protected by the Federal Confidentiality of Alcohol and Drug Abuse Patient Records regulations: The Federal rules restrict any use of the information to criminally investigate or prosecute any alcohol or drug abuse patient.[facility] Center[facility] the event this information is protected by the Federal Confidentiality of Alcohol and Drug Abuse Patient Records regulations: The Federal rules restrict any use of the information to criminally investigate or prosecute any alcohol or drug abuse patient.[facility] Center[facility] the event this information is protected by the Federal Confidentiality of Alcohol and Drug Abuse Patient Records regulations: The Federal rules restrict any use of the information to criminally investigate or prosecute any alcohol or drug abuse patient.[facility] Center[facility] the event this information is protected by the Federal Confidentiality of Alcohol and Drug Abuse Patient Records regulations: The Federal rules restrict any use of the information to criminally investigate or prosecute any alcohol or drug abuse patient.[facility] FOR RECORDS PERTAINING TO PATIENTS [...] BE BASED ON THE PRIMARY CLINICAL RECORDS. [facility]. provides no warranty or guarantee of the accuracy or completeness of information in this document.
[2024-12-18 09:24] VITALS: BP 121/59; PULSE 80; O2SAT 93
[2024-12-18 09:25] VITALS: BP 140/65; PULSE 76; O2SAT 92
[2024-12-18] MEDS: LIDOCAINE HCL 2% 400 MG/20 ML MDV INJ (09:27)
[2024-12-18] MEDS: IOHEXOL 240 MG/ML - 10 ML VIAL 12 MG INJ (09:27)
[2024-12-18] MEDS: BUPIVACAINE HCL 0.25% PF 25 MG/10 ML VIAL 2 ML INJ (09:27)
--- NOTE | 2024-12-18 09:27 | W.PM.PROCNOT ---
Date of procedure: 12/18/24 Pre-op diagnosis: Pain due to right sacroiliitis Post-op diagnosis: same as pre-op Procedure: Procedure: Right sacroiliac joint injection Medications: Bupivacaine 0.25% 3cc, depomedrol 40mg After informed consent was obtained, the patient was brought to the medical procedure unit and placed in the prone position, when a timeout was completed verifying correct patient, procedure, site, positioning, implant, and/or special equipment.? The skin overlying the area was prepped and draped in standard sterile fashion using alcohol.? A 25-gauge needle was inserted towards the right sacroiliac joint under direct fluoroscopic imaging.? Needle tip was advanced until the joint was encountered.? We instilled a total of 2 mL of solution.? Postoperatively needles were removed.? The patient tolerated the procedure well without complication.? The patient reported reduction in pain symptoms postoperatively. Anesthesia: Local Surgeon: Adelfo Hansen Pathology: none sent Condition: stable Disposition: no change
[2024-12-18] MEDS: METHYLPREDNISOLONE ACETATE 40 MG/ML VIAL INJ (09:28)
== END 2024-12-18 09:31 | disposition home or self-care (01) ==
LOC: SURGOUT 08:33
PROVIDERS: PCP Family Medicine; Visit Provider Anesthesiology
DX: M46.1 Sacroiliitis, not elsewhere classified (principal)
CPT/HCPCS: 27096; J0665; J1010; Q9966

== ENCOUNTER 2024-12-28 10:36 | Outpatient (OUT) | payer MEDICARE, SELFPAY ==
--- OUTSIDE RECORDS SUMMARY | 2024-12-28 10:41 | XMS_ITS | CCD ---
Author Organization [facility] Providers Care Supervisor Final Name Role Phone LENNY PEDRAZA Unavailable Unavailable AUDREY HORN Unavailable Unavailable AUDREY HORN Unavailable Unavailable LENNY PEDRAZA Unavailable Unavailable NASH, BIA F Primary Care Unavailable NASH, BIA F Primary Care Unavailable Nash GARCIA, Bia Mccormick Primary Care Provider Jacob Viveros Unavailable Unavailable Bia Cao MD Primary Care Provider (Hist), No Pcp Primary Care Provider Unavailabl e Ileana Cortes MD Unavailable [phone] Bia Cao MD Primary Care Provider [phone] Ileana Cortes MD Unavailable [phone] ROSE VELASQUEZ Attending Unavailable HOOVERMANDI RUIZ Referring Unavailable HOOVERMANDI Attending Unavailable MANDI HOOVER Referring Unavailable Jacob Viveros Unavailable Unavailable Bia Cao MD Unavailable RYAN DALLAS Attending Unavailable NASH, BIA F Referring Unavailable NASH, BIA F Primary Care Unavailable JOHN JOHNSON Attending Unavailable NASH, BIA F Referring Unavailable NASH, BIA F Primary Care Unavailable MARIA C KRAMER Attending Unavailable NASH, BIA F Referring Unavailable NASH, BIA F Primary Care Unavailable YOANNA DORSEY Attending Unavailable NASH, BIA F Referring Unavailable NASH, BIA F Primary Care Unavailable YOANNA DORSEY Attending Unavailable NASH, BIA F Referring Unavailable NASH, BIA F Primary Care Unavailable YOANNA DORSEY Attending Unavailable NASH, BIA F Referring Unavailable NASH, BIA F Primary Care Unavailable JOHN JOHNSON Attending Unavailable NASH, BIA F Referring Unavailable NASH, BIA F Primary Care Unavailable ILEANA CORTES Attending Unavailable YOANNA DORSEY Referring Unavailable NASH, BIA F Primary Care Unavailable NASH, BIA F Referring Unavailable NASH, BIA F Primary Care Unavailable MARIA C KRAMER Attending Unavailable NASH, BIA F Referring Unavailable NASH, BIA F Primary Care Unavailable Giedraitis MD, Andrius Maria Elena Attending Unavailable Giedraitis MD, Andrius Vickiytautdayana Attending Unavailable Giedraitis MD, Andrius Vytautdayana Attending Unavailable Giedraitis MD, Andrius Vytautas Attending Unavailable Giedraitis MD, Andrius Vytautas Attending Unavailable Giedraitis MD, Andrius Vytautas Attending Unavailable Giedraitis MD, Andrius Vytautas Attending Unavailable Giedraitis MD, Andrius Vytautdayana Attending Unavailable Giedraitis MD, Andrius Vickiytsb Attending Unavailable NASH, BIA F Primary Care Unavailable JUAN TAMEZ Attending Unavailable JUAN TAMEZ Attending Unavailable PARKJUAN Referring Unavailable NASH, BIA F Primary Care Unavailable JOHN JOHNSON Referring Unavailable NASH, BIA F Primary Care Unavailable YOANNA DORSEY Referring Unavailable NASH, BIA F Primary Care Unavailable GIEDRAITIS V, ANDRIUS Referring Unavailabl e NASH, BIA F Primary Care Unavailable NASH, BIA F Primary Care Unavailable TISHA GALLAGHER Attending Unavailable NASH, BIA F Attending Unavailable SNYDERRIA Attending Unavailable NASH, BIA F [...] / Clavulanate Drug Allergy 08-14-20 11 Rash [facility] Aspartame (1 source) Aspartame Drug Allergy 02-13-20 17 Other: See Comments [facility] Clavulanate (1 source) Clavulanate Drug Allergy 02-13-[address] [facility] egg white (chicken) allergenic extract (1 source) egg white (chicken) allergenic extract Drug Allergy 08-14-20 11 Swelling [facility] Lincomycin (1 source) Lincomycin Drug Allergy 11-04-[address] [facility] NSAIDs (1 source) oxaprozin Drug Allergy 11-04-[address] [facility] Penicillins (antibiotic) (1 source) Penicillins Drug Allergy 11-04-[address] [facility] (20 sources) Adhesive agent; Translations: [ADHESIVE] Propensity to adverse reactions to drug 11-04-20 Other: See Comments [facility] (20 sources) Amoxicillin / Clavulanate; Translations: [AMOXICILLIN-POT CLAVULANATE] Drug Allergy 08-14-20 11 Rash [facility] (20 sources) Aspartame; Translations: [ASPARTAME] Drug Allergy 02-13-20 17 Other (See Comments), Other: See Comments [facility] (20 sources) chicken allergenic extract; Translations: [POULTRY] Drug Allergy 03-02-20 23 [facility] (20 sources) Clavulanate; Translations: [CLAVULANIC ACID] Drug Allergy 02-13-20 17 Rash [facility] (20 sources) Clindamycin; Translations: [LINCOSAMIDES] Propensity to adverse reactions to drug 02-13-20 17 Anaphylaxis [facility] (14 sources) egg shell membrane; Translations: [EGGSHELL MEMBRANE] Propensity to adverse reactions to drug 11-04-20 16 [facility] (20 sources) Indomethacin; Translations: [INDOMETHACIN] Drug Allergy 05-02-20 21 Hypotension, Unknown [facility] (20 sources) Lincomycin; Translations: [LINCOMYCIN] Drug Allergy 08-14-20 11 Anaphylaxis, Rash [facility] (20 sources) oxaprozin; Translations: [OXAPROZIN] Drug Allergy 11-04-20 16 Rash [facility] (20 sources) Penicillins; Translations: [PENICILLINS] Propensity to adverse reactions to drug 11-04-20 16 [facility] (20 sources) Sulfamethoxazole / Trimethoprim; Translations: [SULFAMETHOXAZOLE-T RIMETHOPRIM] Drug Allergy 10-22-20 23 [facility] (20 sources) Sulfonamides (Antibiotic); Translations: [SULFA (SULFONAMIDE ANTIBIOTICS)] Propensity to adverse reactions to drug 11-11-20 22 [facility] (20 sources) Clemizole; Translations: [CLEMIZOLE] Propensity to adverse reactions to drug 02-13-20 17 [facility] (20 sources) Influenza Virus Vaccines; Translations: [INFLUENZA VIRUS VACCINES] Propensity to adverse reactions to drug 02-13-20 [facility] (20 sources) Other; Translations: [OTHER] Propensity to adverse reactions 02-13-20 Other (See Comments), Swelling [facility] (20 sources) Aspartame Drug Allergy 02-13-20 17 Unknown [facility] (20 sources) Influenza Vaccines Drug Allergy 06-04-20 23 [facility] (20 sources) Lincomycin Drug Allergy 12-01-19 22 [facility] (20 sources) Penicillins Drug Allergy 06-04-20 23 [facility] (6 sources) Eggs Or Egg-Derived Products Drug Allergy 08-14-20 11 Swelling, [facility] (20 sources) Wound Dressing Adhesive Drug Allergy 06-04-20 23 [facility] (6 sources) egg white (chicken) allergenic extract; Translations: [EGG WHITE] Drug Allergy 08-14-20 11 Swelling [facility] (20 sources) Egg-Derived Products Drug Allergy 08-14-20 11 Swelling, Unknown [facility] Healthcare Medications Current Medications Medication Drug Class(es) Dates Sig (Normalized) Sig (Original) acetaminophen 500 mg oral tablet (17 sources) take 2 tablets by mouth every [...] mg / caffeine 65 mg oral tablet (11 sources) Platelet Aggregation Inhibitor, Nonsteroidal Anti-inflammatory Drug, Central Nervous System Stimulant, Methylxanthine take 1 tablet by mouth every six hours as needed for headache lggvnvo-uzbzucdqpawab-ovttghgf (EXCEDRIN MIGRAINE) 250-250-65 mg per tablet Take 1 tablet by mouth every 6 (six) hours as needed for headaches. Active acetaminophen 325 mg / dichloralphenazone 100 mg / isometheptene 65 mg oral capsule (6 sources) take 1 capsule by mouth every six hours as needed acetaminophen-dichloralphenazone -isometheptene (MIDRIN) 65-100-325 mg per capsule 1 capsule four times daily as needed. Active [id number] actuat albuterol 0.09 mg/actuat metered dose [...] (20 sources) Serotonin Reuptake Inhibitor Start: End: 025 take 1 tablet by mouth at mealtime escitalopram (Lexapro) 20 MG tablet Indications: Anxiety Take 1 tablet (20 mg) by mouth in the evening. Take with meals 100 tablet 3 12/15/2023 Active esomeprazole 40 mg delayed release oral [...] tablet (20 sources) Histamine-2 Receptor Antagonist Start: End: take 1 tablet by mouth at bedtime famotidine (Pepcid) 20 MG tablet Indications: Gastroesophageal reflux disease without esophagitis Take 1 tablet (20 mg) by mouth at bedtime 90 tablet 3 12/26/2024 12/26/2025 Active fenofibrate 160 mg oral tablet (20 [...] 05/10/2024 Active L.acidoph/B.animalis/B.longu m (FLORAJEN DIGESTION ORAL) (11 sources) take 1 tablet by mouth in [...] tablet (20 sources) Muscle Relaxant Start: 04-19-20 24 take 2 tablets by mouth at bedtime methocarbamol (Robaxin) 500 MG tablet Take 1,000 mg by mouth at bedtime 04/19/2024 Active metoclopramide 10 mg oral tablet (6 sources) Dopamine-2 Receptor Antagonist take 1 tablet by mouth every six hours as needed metoclopramide HCl (REGLAN) 10 mg tablet Take 10 mg by mouth every 6 hours as needed. Active 24 hr mirabegron 50 mg extended release oral tablet (2 sources) beta3-Adrenergic Agonist Start: 12-19-19 25 take 1 tablet by mouth every twenty-four hours in the morning mirabegron (MYRBETRIQ) 50 mg tablet extended release 24 hr Take 1 tablet (50 mg total) by mouth in the morning. 30 tablet 12/19/2024 Active mirtazapine 15 mg oral tablet (2 sources) Start: 12-26-19 25 End: 06-24-20 25 take 1 tablet by mouth at bedtime mirtazapine (Remeron) 15 MG tablet Indications: Primary insomnia , Major depressive disorder, single episode, in full remission (CMS/HCC) Take 1 tablet (15 mg) by mouth at bedtime 90 tablet 1 12/26/2024 06/24/2025 Active multivitamin tablet (6 sources) take 1 [...] by mouth in the morning. 100 capsule 11 12/12/2024 03/26/2028 Active Start: 12-02-2016 omeprazole (SD ILOSEC) 20 [...] by mouth. 11/21/2020 Active polyethylene glycol 3350 [id number] mg powder for oral solution (3 sources) [...] mouth. 0 Active therapeutic multivitamin (THERAGRAN) tablet (11 sources) take 1 tablet by margo th [...] 1 tablet three times daily. 12/27/2017 Active zafirlukast 20 mg oral tablet (20 sources) Leukotriene Receptor Antagonist Start: 12-19-2024 take 1 tablet by mouth in the morning, then take 1 tablet by mouth at bedtime zafirlukast (Accolate) 20 MG tablet Indications: Moderate persistent asthma, unspecified whether complicated (CMS/HCC) TAKE 1 TABLET BY MOUTH IN THE MORNING AND 1 AT BEDTIME 180 tablet 12/19/2024 Active Start: 01-07-2018 End: 12-14-2024 take 1 tablet [...] by mouth every four hours as needed butalbital-acetam inophen-caffeine 50-325-40 MG tablet Take 1 tablet by [...] mouth in the morning. 04/23/2023 12/08/2024 Discontinued pediatric vvcozpna-etfz-waa (flintstones complete) tablet,chewable (3 sources) Start: 01-18-2024 End: 02-24-2024 pediatric jznjngrd-jogv-qlu (flintstones complete) tablet,chewable Chew 1 tablet and swallow in the morning. 90 tablet 3 01/18/2024 02/24/2024 Discontinued (Duplicate Listing) Start: 01-18-2024 pediatric mult kdef-yoin-wzb (flintstones complete) tablet,chewable Chew 1 tablet and swallow in the morning. 90 tablet 3 01/18/2024 Active vitamin b12 1 mg sublingual tablet (19 sources) Vitamin B12 Start: 01-18-2024 End: 12-19-2024 take 1 tablet under the tongue in the morning cyanocobalamin (VITAMIN B12) 1,000 mcg tablet, sublingual Place 1 tablet (1,000 mcg total) under the tongue in the morning. 30 tablet 11 01/18/2024 12/19/2024 Discontinued Problems Active Problems Problem Classification Problem [...] Onset: 5 10-26-2017 Chronic E Codes: Fall (3 sources) Unspecified fall, initial encounter; Translations: [Fall] Onset: 4 12-26-2024 Episodic E Codes: Fall (3 sources) Fall; Translations: [Fall, subsequent encounter] Onset: 4 12-26-2024 Esophageal disorders (20 sources) Gastroesophageal reflux disease [...] Translations: [Mixed incontinence] Onset: 0 06-04-2023 Chronic Miscellaneous mental health disorders (20 sources) Psychophysiologic insomnia; Translations: [Psychophysiologic insomnia] Onset: 9 12-12-2018 Chronic Mood disorders (20 sources) Depressive disorder; Translations: [Other specified depressive episodes] Onset: 7 02-12-2017 Chronic Mycoses (2 sources) Onychomycosis due to dermatophyte ; Translations: [Tinea unguium] 10-30-2024 Episodic Nausea and vomiting (11 sources) Postoperative nausea and vomiting; Translations: [Nausea with vomiting, unspecified] 06-24-2021 Episodic Nutritional deficiencies (4 sources) Vitamin D deficiency; Translations: [Vitamin D deficiency, unspecified] Onset: 4 12-06-2024 Chronic Osteoarthritis (20 sources) Osteoarthritis of right knee joint; Translations: [Unilateral primary osteoarthritis, right knee] Onset: 1 06-04-2023 Chronic Osteoporosis (20 sources) Senile osteoporosis; Translations: [Age-related osteoporosis without current pathological fracture] Onset: 0 Resolved: 3 06-04-2023 Chronic Other and ill-defined heart disease (11 sources) Diastolic dysfunction; Translations: [Other ill-defined heart diseases] Onset: 1 05-23-2021 Chronic Other and ill-defined heart disease (12 sources) Left ventricular hypertrophy; Translations: [Cardiomegaly] Onset: [...] of meninges, unspecified; Translations: [Benign neoplasm of meninges (HCC)] Onset: 4 Chronic Other and unspecified benign [...] Onset: 9 Chronic Other nervous system disorders (11 sources) Chronic pain syndrome; Translations: [Chronic pain syndrome] Onset: 8 2018 Chronic Other nervous system disorders (11 sources) Carpal tunnel syndrome; Translations: [Carpal tunnel syndrome, unspecified upper limb] Onset: 1 10-28-2021 Chronic Other nervous system disorders (1 source) Polyneuropathy; Translations: [Polyneuropathy, unspecified] 01-07-2024 Chronic Other nervous system disorders (1 source) Mass lesion of brain; Translations: [Other specified disorders of brain] 03-28-2024 Chronic Other nervous system disorders (20 sources) Lesion of brain; Translations: [Disorder of brain, unspecified] Onset: 4 02-15-2024 Chronic Other nervous system disorders (2 sources) [...] pollen] 08-14-2024 Chronic Other upper respiratory disease (6 sources) Hoarse; Translations: [Dysphonia] 08-08-2024 Episodic Other upper respiratory infections (2 sources) Posterior rhinorrhea; Translations: [Chronic sinusitis, unspecified] 08-08-2024 Chronic Spondylosis; intervertebral disc disorders; other back problems (20 sources) Prolapsed lumbar intervertebral disc; Translations: [Other intervertebral disc displacement, lumbar region] Onset: 1 Resolved: 3 01-07-2017 Chronic Thyroid disorders (20 sources) Acquired hypothyroidism; Translations: [Hypothyroidism, unspecified] Onset: 9 03-02-2023 Chronic Unclassified (19 sources) Patient on antidepressant monitoring plan Onset: 4 08-08-2024 Unclassified (1 source) Blood Pressure Check Onset: 4 Unclassified (1 source) Low back pain, unspecified; Translations: [Low back pain, unspecified] Onset: 5 Unclassified (1 source) EMS Onset: 4 Urinary tract infections (3 sources) Acute cystitis; Translations: [Acute cystitis without hematuria] 07-14-2024 Episodic Past or Other Problems Problem Classification Problem Date Documented Da te Episodic/Chronic Acute and unspecified renal failure (11 sources) Acute injury of kidney; Translations: [Acute kidney failure, unspecified] Onset: 03-02-2023 03-02-2023 Episodic Acute cerebrovascular disease (11 sources) Hematoma of subdural space of neuraxis; [...] Prediabetes; Translations: [Prediabetes] Onset: 01-07-2024 01-07-2024 Episodic Genitourinary symptoms and ill-defined conditions (7 sources) Dysuria; Translations: [Dysuria] Onset: 08-29-2024 07-10-2024 Episodic Headache; including migraine (20 sources) Migraine without aura, not refractory ; Translations: [Migraine without aura, not intractable, without status migrainosus] Onset: 12-12-2018 Resolved: 10-24-2023 12-12-2018 Chronic Malaise and fatigue (15 sources) Asthenia; Translations: [Weakness] Onset: 11-04-2016 11-04-2016 Episodic Mood disorders (20 sources) Mood disorders Onset: 04-23-2023 Resolved: 12-06-2023 04-23-2023 Other circulatory disease (11 sources) Low blood pressure; Translations: [Hypotension, unspecified] Onset: 03-02-2023 03-02-2023 Episodic Other connective tissue disease (20 sources) Bilateral trochanteric bursitis; Translations: [Trochanteric bursitis, right hip] Onset: 11-03-2017 11-03-2017 Episodic Other connective tissue disease (20 sources) Impingement syndrome of right shoulder region; Translations: [Impingement syndrome of right shoulder] Onset: 08-14-2011 06-22-2018 Episodic Other connective tissue disease (12 sources) Muscle spasm of cervical muscle of neck; Translations: [Other muscle spasm] Onset: 05-05-2019 05-05-2019 Episodic Other connective tissue disease (11 sources) Nocturnal muscle spasm ; Translations: [Other [...] Onset: 02-11-2024 Episodic Other lower respiratory disease (11 sources) Dyspnea; Translations: [Shortness of breath] Onset: [...] Onset: 06-12-2019 Episodic Other non-traumatic joint disorders (20 sources) Hip pain; Translations: [Pain in right hip] Onset: 10-13-2017 11-03-2017 Episodic Other screening for suspected conditions (not mental disorders or infectious disease) (4 sources) Abnormal level of blood mineral; Translations: [Abnormal level of blood mineral] Onset: 01-07-2024 01-07-2024 Episodic Other upper respiratory disease (11 sources) Chronic hoarseness; Translations: [Dysphonia] Onset: 07-24-2020 [...] Test Name Value Interpretation Reference Range Facility CT BRAIN WO CONTon CT BRAIN WO CONT CT BRAIN WO CONT CT BRAIN WO CONT HISTORY: Head trauma, fall. COMPARISON: MR brain with and without contrast 03/02/2024. CT brain without contrast 02/11/2024 and 10/20/2023. TECHNIQUE: CT brain obtained without intravenous contrast. Automated exposure control was utilized. All CT scans at this facility use dose modulation, iterative reconstruction, and/or weight based dosing when appropriate to reduce radiation dose to as low as reasonably achievable. FINDINGS: Unchanged size of 1.2 cm extra-axial mass within the right posterior fossa. No evidence of acute territorial loss of swenson-white differentiation, intracranial hemorrhage, mass effect, midline shift, or extra-axial fluid collection. No evidence of ventricular outflow obstruction. Mild diffuse global parenchymal atrophy. Mild heterogeneity of the deep, periventricular white matter most commonly seen with chronic microvascular ischemic changes. Atherosclerotic calcifications of the cavernous ICAs and left vertebral artery. Mild mucosal thickening within the right maxillary sinus. Bilateral lens replacements. Similar right maxillary periapical lucency suggestive of odontogenic disease. Similar hyperostosis of the inner table of the frontal bone. Otherwise, no acute osseous abnormality. Mastoid air cells are clear. IMPRESSION: * No acute intracranial abnormality by CT. 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 Approved by Resident Mark Keita MD on 12/23/2024 8:41 PM IDharmesh have personally reviewed the image(s) and agree with and/or edited the report Finalized by Dharmesh Mittal on 12/23/2024 8:53 PM [facility] [address] CERVICAL SPINE WO CONTon 12-23-2024 CT CERVICAL SPINE WO CONT CT CERVICAL SPINE WO CONT STUDY: CT CERVICAL SPINE WO CONT INDICATION: Neck trauma (Age >= 65y). TECHNIQUE: * CT of the cervical spine, was performed without intravenous contrast. Coronal & sagittal MPR images were generated and reviewed. * All CT scans at this facility use dose modulation, iterative reconstruction, and/or weight based dosing when appropriate to reduce radiation dose to as low as reasonably achievable. FINDINGS: Degenerative changes of the bilateral temporomandibular joints. No evidence of acute fracture or traumatic malalignment. Grade 1 anterolisthesis of C4 on C5, likely degenerative. Similar widening of the right C4-C5 facet with associated degenerative changes. Mild to moderate degenerative changes at C5-C6 with intervertebral disc space narrowing. Additional calcified posterior longitudinal ligament or disc extrusion at T2-T3. Prevertebral, epidural and paraspinal soft tissues appear unremarkable. Levoconvex curvature of the lumbar spine. IMPRESSION: * No evidence of acute fracture or traumatic malalignment. * Degenerative changes as described. Finalized by Dharmesh Mittal on 12/23/2024 8:44 PM Normal [facility] CT KNEE RT WO CONTon 025 CT KNEE RT WO CONT CT KNEE RT WO CONT Clinical history: Chronic knee pain CT right knee without contrast: 12/23/2024 COMPARISON: None PROCEDURE: Axial images were obtained through the knee. Coronal and sagittal reconstructions were performed. All CT scans at this facility use dose modulation, iterative reconstruction, and/or weight based dosing when appropriate to reduce radiation dose to as low as reasonably achievable. FINDINGS: No fracture or acute osseous abnormalities evident. A small joint effusion is evident There is a trace is doing with subarticular sclerosis and marginal new bone formation in each compartment. No acute osseous abnormalities evident. Musculotendinous structures are within normal limits. IMPRESSION: Changes of osteoarthritis with no acute abnormality evident on CT evaluation. Finalized by Maria C Singh MD on 12/23/2024 9:54 PM Normal [facility] XR CHEST 1 VWon 12-23-2024 XR CHEST 1 VW XR CHEST 1 VW XR CHEST 1 VW HISTORY: Fall, pain COMPARISON: Chest radiographs 03/02/2023, 06/24/2021, 01/07/2017. FINDINGS: The trachea is midline. Stable prominence of the cardiomediastinal silhouette. Similar low lung volumes with hypoventilatory change and bronchovascular crowding. No pneumothorax or pleural effusion. No focal consolidation. Elevation of the left hemidiaphragm, similar to prior. Severe degenerative changes of the bilateral glenohumeral and acromioclavicular joints. IMPRESSION: * Similar bronchovascular crowding, likely due to hypoventilatory changes. * Elevation of left hemidiaphragm and left basilar atelectasis an/or infiltrates. Approved by Resident Mark Keita MD on 12/23/2024 8:29 PM I, Eileen Negrete MD have personally reviewed the image(s) and agree with and/or edited the report Finalized by Eileen Negrete MD on 12/23/2024 8:36 PM Normal [facility] XR HIP RT 2-3 VIEWS W OR WO PELVISon 12-23-2024 XR HIP RT 2-3 VIEWS W OR WO PELVIS XR HIP RT 2-3 VIEWS W OR WO PELVIS EXAM: XR HIP RT 2-3 VIEWS W OR WO PELVIS CLINICAL INDICATIONS: fall, R hip pain FINDINGS/IMPRESSION: No acute fracture or traumatic malalignment. Mild degenerative changes of the bilateral hips. Postoperative changes in the lumbar spine. Clips in the pelvis. Finalized by Dharmesh Mittal on 12/23/2024 8:41 PM Normal [facility] XR KNEE RT 3 VWSon XR KNEE RT 3 VWS XR KNEE RT 3 VWS XR KNEE RT 3 VWS HISTORY: Fall, right knee pain. COMPARISON: Right knee radiographs 02/08/2017. FINDINGS/Impression: 3 views obtained. Questionable irregularity of the medial tibial plateau which may reflect a subacute fracture. Recommended dedicated CT for complete assessment. Tiny suprapatellar effusion. Moderate osteoarthritic changes. Approved by Resident Mark Keita MD on 12/23/2024 8:36 PM Dharmesh Trimble have personally reviewed the image(s) and agree with and/or edited the report Finalized by Dharmesh Mittal on 12/23/2024 8:56 PM Normal [facility] XR SHOULDER RT MIN 2 VWSon 0 12-23-2024 XR SHOULDER RT MIN 2 VWS XR SHOULDER RT MIN 2 VWS XR SHOULDER RT MIN 2 VWS HISTORY: Fall, right shoulder pain and crepitus. COMPARISON: Right shoulder radiograph 04/10/2013. FINDINGS: No acute fracture or dislocation. Severe degenerative changes including joint space narrowing and osteophytosis involving the glenohumeral and acromioclavicular joints. IMPRESSION: * No acute osseous abnormality. If symptoms persist, consider MRI. Approved by Resident Mark Keita MD on 12/23/2024 8:26 PM I, Eileen Negrete MD have personally reviewed the image(s) and agree with and/or edited the report Finalized by Eileen Negrete MD on 12/23/2024 8:31 PM Normal [facility] Laboratory - Miscellaneous t estson 12-10-2024 Service comment (Unsp spec) [Interp] The [facility] Comment on above: This urine was adolfo zed for the presence of WBC, RBC, bacteria, casts, and other formed elements. Only those elements seen were reported. No Panel Informationon 12-10 Performing Organizat ion Information Site ID: QPT Name: [facility] Address: [address] [place] [address], [address] [place] [id number] Director: Angel Noble MD [facility] Urinalysis complete panel (U )on 12-10-2024 Appearance (U) TURBID Abnormal CLEAR [facility] Bacteria LM.HPF (Urine sed) [#/Area] MANY Abnormal NONE SEEN /HPF [facility] Bilirubin Ql (U) Negative NEGATIVE [facility] Color (U) YELLOW YELLOW [facility] Epithelial cells.squamous LM.HPF (Urine sed) [#/Area] NONE SEEN < OR = 5 /HPF [facility] Glucose Ql (U) Negative NEGATIVE [facility] Hemoglobin Ql (U) TRACE Abnormal NEGATIVE [facility] Hyaline casts (Urine sed) [#/Area] NONE SEEN NONE SEEN /LPF [facility] Interpretation and review of laboratory results Abnormal [facility] Ketones Ql (U) Negative NEGATIVE [facility] Leukocyte esterase Test strip Ql (U) 3+ Abnormal NEGATIVE [facility] Nitrite Ql (U) Negative NEGATIVE [facility] pH (U) 6.5 [pH] 5.0 - 8.0 [facility] Protein Ql (U) TRACE Abnormal NEGATIVE [facility] RBC LM.HPF (Urine sed) [#/Area] 0-2 < OR = 2 /HPF [facility] Specific gravity (U) [Rel density] 1.017 1.001 - 1.035 [facility] WBC LM.HPF (Urine sed) [#/Area] PACKED Abnormal < OR = 5 /HPF [facility] Urinalysis macro (dipstick) panel (U)on 12-08-2024 Bilirubin, UA Negative Negative - 4(70) +++ mg/dL [facility] Blood, UA Positive Negative - 50 Darryl/mcL [facility] Clarity, UA Cloudy [facility] Color, UA Yellow [facility] Glucose, UA Negative Negative - 2000(110) ++++ mg/dL [facility] Interpretation and review of laboratory results Abnormal [facility] Ketones, UA Negative Negative - 160(16) ++++ mg/dL [facility] Leukocytes, UA 4+ Negative - 500+++ Obdulio/mcL [facility] Nitrite, UA Negative Negative - Positive [facility] pH, UA 6 5 - 9 [facility] Protein, UA 2+ Negative - 2000(20) ++++ mg/dL [facility] Spec Grav, UA 1.01 1 - 1.03 [facility] Urobilinogen, UA 0.2 0.2 - 12 mg/dL [facility] XR SPINE LUMBAR 2 OR 3 VWSon 11-28-2024 XR SPINE LUMBAR 2 OR 3 VWS XR SPINE LUMBAR 2 OR 3 [facility] History: Pain. Postop follow-up Lumbar spine Comparison: [...] Britney Mendoza MD on 11/28/2024 3:13 PM [facility] 10-04-2024 CNPN Telephone (NSCAMN) -- ANGELA RUTH ([id number]) 1945 F Date Time Provider Department 10/04/[address] [facility] During your visit today, we recorded the following information about you: Jessica Ashley 10/04/2024 3:20 PM Signed General Call Caller : Angela Contact Reason for Call : Did you speak with Dr. Hoover regarding her most recent appt? Patient requesting return call ? Yes Rose Velasquez, MASOOD.MAHENDRA 10/06/2024 10:09 AM Signed Voicemail left for Angela at [phone]. Call back number given. 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 My note was forward to Dr. Hoover for review. At this time we recommend follow up and new imaging in 1 year. Rose Velasquez, MSN, FURNACE UNLOADER, CLINICAL RESOURCE DIRECTOR Certified Nurse Practitioner Allergies As of Date: [...] - Rash Date Reviewed: 09/26/2024 Reviewed by: Tisha Bonilla LPN - Fully Assessed Reason for [...] Encounter Status:Closed by [facility] ([facility] ) -- ANGELA RUTH ([id number]) 1945 F Date Time Provider Department 09/26/24 1:45 PM ROSE VELASQUEZ [facility] During your visit today, we recorded the following information about you: Pulse Blood pressure Weight 91/minute 143/81 67 kg Rose Velasquez APRN.CLINICAL RESOURCE DIRECTOR 09/26/2024 3:27 PM [facility] BRAIN TUMOR CENTER NEURO-ONCOLOGY OUTPATIENT CLINIC NOTE [...] bedtime (Pat (more content not included)... Normal [facility] MR Brain WO and W contrast I Von 09-26-2024 IMPRESSION: Stable size of a RIGHT petrous ridge presumed meningioma compared to 03/02/2024. Technical Training Manager: PSCB Transcribe Date/Time: Sep 26 2024 2:10P Dictated by : MAUREEN PEARL MD This examination was interpreted and the report reviewed and electronically signed by: MAUREEN PEARL MD on Sep 26 2024 2:14PM [facility] DIVISION OF RADIOLOGY * * *Final Report* * * DATE OF EXAM: Sep 26 2024 12:29PM [facility] 0295 - MRI BRAIN WO/W [...] tissues otherwise unremarkable. DIVISION OF RADIOLOGY Provider, Luis Manuel Jonessoraida [facility] - 09/26/2024 * * *Final Report* * * DATE OF EXAM: Sep 26 2024 12:29PM [facility] 0295 - MRI BRAIN WO/W [...] petrous ridge presumed meningioma compared to 03/02/2024. Technical Training Manager: ALLYSSA Transcribe Date/Time: Sep 26 2024 2:10P Dictated by : MAUREEN PEARL MD This examination was interpreted and the report reviewed and electronically signed by: MAUREEN PEARL MD on Sep 26 2024 2:14PM EST [facility] Radiology Study observation (narrative) Ayana gaxiola [facility] MR Brain WO and W contrast I VOrdered By: Ccf Provider on 09-26-2024 [facility] MRI BRAIN WO/W IVCONon 09-26 MRI BRAIN WO/W IVCON * * *Final Report* * * DATE OF EXAM: Sep 26 2024 12:29PM [facility] 0295 - MRI BRAIN WO/W [...] petrous ridge presumed meningioma compared to 03/02/2024. Technical Training Manager: ALLYSSA Transcribe Date/Time: Sep 26 2024 2:10P Dictated by : MAUREEN PEARL MD This examination was interpreted and the report reviewed and electronically signed by: MAUREEN PEARL MD on Sep 26 2024 2:14PM EST [id number] Normal [facility] Moore Measure post void residualon 08-29-2024 Volume 56 mL [facility] POCT Urinalysis Auto, W/O Mi croscopyon 08-29-2024 External Poct Urine Blood Negative [facility] External Poct Urine Glucose Negative [facility] External Poct Urine Ketones Negative [facility] External Poct Urine Leukocyte Esterase Negative [facility] External Poct Urine Nitrite Negative [facility] External Poct Urine Ph 7.0 Pr [facility] External Poct Urine Protein Negative [facility] Laboratory - Microbiology an d Antimicrobial susceptibilityon 08-16-2024 SARS-CoV-2 (COVID-19) RNA MICHAEL+probe Ql (Unsp spec) Negative [facility] No Panel Informationon 08-16 FLU A Negative [facility] FLU B Negative [facility] Interpretation and review of laboratory results Normal [facility] XR Thoracic spine 3 Viewson 07-11-2024 EXAM: [...] report is generated using voice recognition reporting (Streamweaver). On occasion Quidcribe erroneously drops words from the report or [...] report is generated using voice recognition reporting (Streamweaver). On occasion Streamweaver erroneously drops words from the report or replaces the spoken word with similar sounding words. Please call with any questions/concerns regarding this report.* Dictated and transcribed 07/11/2024/tm This report has been electronically signed and approved by the interpreting radiologist. Electronically Signed Shubham Almodovar II, M.D. 2024-07-11 10:01:04 [facility] [employer] XR Thoracic spine 3 ViewsOrd ered By: Shubham Almodovar on 07-11-2024 [facility] [employer] Work Phone: CALCIUMon 07-10-2024 Calcium [Mass/Vol] 9.5 mg/dL Normal 8.5-10.5 [facility] Comment on above: Performed By: #### 1 3965-9, CBCA, FEPR, THYR, 2276-4, 2132-9, 2284-8, IMEL, SPE #### [facility] ([id number]) [address], [address] [place] [address] #### MTHFRS #### [facility] ([id number]) [address] [place] [address] THYROID PROFILEon 07-10-2024 Free T4 [Mass/Vol] 1.24 ng/dL Normal 0.61-1.60 [facility] Comment on above: Performed By: #### 1 3965-9, CBCA, FEPR, THYR, 2276-4, 2132-9, 2284-8, IMEL, SPE #### [facility] ([id number]) [address], [address] [place] [address] #### MTHFRS #### [facility] ([id number]) [address] [place] [address] TSH 1.37 uIU/mL Normal 0.49-4.67 [facility] Comment on above: Performed By: #### 1 3965-9, CBCA, FEPR, THYR, 2276-4, 2-9, 2284-8, IMEL, SPE #### [facility] ([id number]) [address], [address] [place] [address] #### MTHFRS #### [facility] ([id number]) [address] [place] [address] Urinalysis macro (dipstick) panel (U)on 07-10-2024 Bilirubin, UA Negative Negative - 4(70) +++ mg/dL [facility] Blood, UA Positive Negative - 50 Darryl/mcL [facility] Clarity, UA Cloudy [facility] Color, UA Yellow [facility] Glucose, UA Negative Negative - 1999(110) ++++ mg/dL [facility] Interpretation and review of laboratory results Abnormal [facility] Ketones, UA Negative Negative - 160(16) ++++ mg/dL [facility] Leukocytes, UA 3+ Negative - 500+++ Obdulio/mcL [facility] Nitrite, UA Positive Negative - Positive [facility] pH, UA 6.5 5 - 9 [facility] Protein, UA 2+ Negative - 2000(20) ++++ mg/dL [facility] Spec Grav, UA 1.010 1 - 1.03 [facility] Urobilinogen, UA 1.0 0.2 - 12 mg/dL [facility] Vitamin D+Metabolites [Mass/ Vol]on 07-10-2024 VITAMIN D 25 HYD TOT 78.8 ng/mL Normal 30-100 [facility] Comment on above: Result Comment: Vitamin D status 25 [place] Vitamin D Deficiency <20 ng/mL Insufficiency 20-29 ng/mL Sufficiency 30-100 ng/mL Toxicity >100 ng/mL NOTE: A pediatric reference range has not been established by the squaring machine operator of this kit. The [place] [employer] recommends a Vitamin D level of = or >20ng/mL in infants and children. Performed By: #### 1 3965-9, CBCA, FEPR, THYR, 2276-4, 2132-9, 2284-8, JOSHUA GONZALEZ #### [facility] ([id number]) [address], [address] [place] [address] #### MTHFRS #### [facility] ([id number]) [address] [place] [address], [place] [address] XR THORACIC SPINE 3 VIEWSon 07-10-2024 XR [...] report is generated using voice recognition reporting (Streamweaver). On occasion Quidcribe erroneously drops words from the report or replaces the spoken word with similar sounding words. Please call with any questions/concerns regarding this report.* Dictated and transcribed 07/11/2024/tm This report has been electronically signed and approved by the interpreting radiologist. Electronically Signed Shubham Almodovar II, M.D. 2024-07-11 10:01:04 Normal Not Available XR Thoracic spine 3 Viewson 07-10-2024 Radiology Study observation (narrative) [facility] CNOVon 04-04-2024 CNOV Office Visit (NSCAMN ) -- ANGELA RUTH ([id number]) 1945 F Date Time Provider Department 04/04/24 [...] Neuro- Oncology [facility] AND [facility] [place], [facility] CC: Patient Care Team: Bia Cao as PCP ([facility]) Ileana Cortes MD as NI Referring Team [...] 6 months with a repeat MRI scan ([place] preference) and clinic visit with one of our skull base team advance practice providers ([place] preference). - follow up with tank storage supervisor for hearing loss which is unrelated to [...] Patient is accompanied by her granddaughter (her bung driver) and great grand daughter). 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 The patient takes ASA 81 mg daily for cardioprotection per her PCP. The patient has been using a cane for the last 5-6 years. The patient reports that ~6 weeks ago, she walked into her garage door and fell. The patient has not seen an tank storage supervisor or a vestibular therapist. Past Medical History: [...] Units once (more content not included)... Normal [facility] 03-24-2024 [facility] Telephone (NIQ) -- ANGELA RUTH ([id number]) 1945 F Date Time Provider Department 03/24/24 NEUROLOGY PROVIDER [facility] During your visit today, we recorded the following information about you: Shelli Fletcher 03/24/2024 5:01 PM Signed Referral source: Ileana Cortes MD ([facility]) Reason for visit: consideration of gamma knife for 1.2 cm enhancing lesion at right cerebelloponitine angle with leading differential including vestibular schwannoma and meningioma External records: Sent with referral and pulled from [facility] Triage: Required, forwarded to [facility] by telephone encounter sent to [facility] Scheduling Triage. Financial clearance: Not required to schedule Rose Velasquez APRN.CLINICAL RESOURCE DIRECTOR 03/28/2024 10:00 AM Signed Time Frame: First available Provider: Kiko Landrum Soni Referring: Ileana Cortes MD Images to be requested from [facility] Dx: Right CPA mass Patient: Angela Ruth Address: Angela Ruth [id number] [place] [address] [place] [address] Per Triage: HISTORY OF PRESENT ILLNESS Angela [...] extracranial soft tissues are unremarkable. Rose Velasquez APRN.CLINICAL RESOURCE DIRECTOR March 28, 2024 Etelvina Trujillo 03/28/2024 10:12 AM Signed Called patient to schedule an appointment. No ans/left message to call the office back. Appointment scheduled: 04/04/2024 10:30 AM (Arrive by 10:15 AM) Mandi Hoover MD [facility] RAMAN Alonso Janette 04/06/2024 10:40 AM Addendum Imaging requested from [employer] [facility] AND [facility]. DOS requested: MRI 03/02/2024 CT Scan 02/11 2024 AND 03/09/2023, 02/11/2024. All images viewable in [employer] Allergies As of Date: 03/24/2024 Noted Allergy [...] Records [3576] Cmt: External referral to [facility] [place] triage [Other] Nurse Triage Call [185] Appointment [186] Primary Visit Diagnosis:Brain mass [G93.89] [G93.89] Prescriptions as of 04/06/2024 - hydrALAZINE (APRESOLINE) 100 mg tablet take 1 tablet by mouth twice a day then MAY TAKE ADDITIONAL (50 M... (REFER (more content not included)... Normal [facility] MR BRAIN W AND WO CONTRAST [...] IS VERY IMPORTANT TO YOUR HEALTH. THE [place] GUIDELINES RECOMMEND THAT WOMEN 40 [...] 24 ABSOLUTE BASOPHIL 0.0 X10E9/L Normal 0.0-0.2 [facility] Comment on above: Performed By: #### 1 3965-9, CBCA, FEPR, THYR, 2276-4, 2131-9, 4-8, IMEL, SPE #### [facility] ([id number]) [address], [address] [place] [address] #### MTHFRS #### [facility] ([id number]) [address] [place] [address], [place] [address] ABSOLUTE NEUTROPHIL 3.0 X10E9/L Normal 1.5-6.6 [facility] Comment on above: Performed By: #### 1 3965-9, CBCA, FEPR, THYR, 2276-4, 2131-9, 2284-8, IMEL, SPE #### [facility] ([id number]) [address], [address] [place] [address] #### MTHFRS #### [facility] ([id number]) [address] [place] [address] Basophils/100 WBC (Bld) 0.9 % Normal [facility] Comment on above: Performed By: #### 1 3965-9, CBCA, FEPR, THYR, 2276-4, 2132-9, 2284-8, IMEL, SPE #### [facility] ([id number]) [address], [address] [place] [address] #### MTHFRS #### [facility] ([id number]) [address] [place] [address] Eosinophils (Bld) [#/Vol] 0.1 10*3/uL Normal 0.0-0.4 [facility] Comment on above: Performed By: #### 1 3965-9, CBCA, FEPR, THYR, 6-4, 2-9, 4-8, IMEL, SPE #### [facility] ([id number]) [address], [address] [address] #### MTHFRS #### [facility] ([id number]) [address] [place] [address] Eosinophils/100 WBC (Bld) 1.8 % Normal [facility] Comment on above: Performed By: #### 1 3965-9, CBCA, FEPR, THYR, 6-4, 2-9, 2284-8, IMEL, SPE #### [facility] ([id number]) [address] [place] [address] #### MTHFRS #### [facility] ([id number]) [address] [place] [address] Erythrocyte distribution width (RBC) [Ratio] 15.1 % High 11.5-15.0 [facility] Comment on above: Performed By: #### 1 3965-9, CBCA, FEPR, THYR, 2276-4, 2131-9, 4-8, IMEL, SPE #### [facility] ([id number]) [address], [address] [place] [address] #### MTHFRS #### [facility] ([id number]) [address] [place] [address] Hematocrit (Bld) [Volume fraction] 39.6 % Normal 35-47 [facility] Comment on above: Performed By: #### 1 3965-9, CBCA, FEPR, THYR, 6-4, 2132-07, 8, IMEL, SPE #### [facility] ([id number]) [address], [address] [place] [address] #### MTHFRS #### [facility] ([id number]) [address] [place] [address] Hemoglobin (Bld) [Mass/Vol] 13.5 g/dL Normal 11.7-15.5 [facility] Comment on above: Performed By: #### 1 3965-9, CBCA, FEPR, THYR, 6-4, 2131-9, 2283-8, IMEL, SPE #### [facility] ([id number]) [address], [address] [place] [address] #### MTHFRS #### [facility] ([id number]) [address] [place] [address] Lymphocytes (Bld) [#/Vol] 1.5 10*3/uL Normal 1.0-3.5 [facility] Comment on above: Performed By: #### 1 3965-9, CBCA, FEPR, THYR, 2276-4, 2131-9, 4-8, IMEL, SPE #### [facility] ([id number]) [address], [address] [place] [address] #### MTHFRS #### [facility] ([id number]) [address] [place] [address] Lymphocytes/100 WBC (Bld) 28.5 % Normal [facility] Comment on above: Performed By: #### 1 3965-9, CBCA, FEPR, THYR, 2276-4, 2131-9, 4-8, IMEL, SPE #### [facility] ([id number]) [address], [address] [place] [address] #### MTHFRS #### [facility] ([id number]) [address] [place] [address] MCH (RBC) [Entitic mass] 29.0 pg Normal 27-34 [facility] Comment on above: Performed By: #### 1 3965-9, CBCA, FEPR, THYR, 6-4, 2131-9, 4-8, IMEL, SPE #### [facility] ([id number]) [address], [address] [place] [address] #### MTHFRS #### [facility] ([id number]) [address] [place] [address] MCHC (RBC) [Mass/Vol] 34.0 g/dL Normal 32-36 [facility] Comment on above: Performed By: #### 1 3965-9, CBCA, FEPR, THYR, 6-4, 2131-9, 4-8, IMEL, SPE #### [facility] ([id number]) [address], [address] [place] [address] #### MTHFRS #### [facility] ([id number]) [address] [place] [address] MCV (RBC) [Entitic vol] 85 fL Normal 80-100 P [facility] Comment on above: Performed By: #### 1 3965-9, CBCA, FEPR, THYR, 2276-4, 2-9, 2284-8, IMEL, SPE #### [facility] ([id number]) [address], [address] [place] [address] #### MTHFRS #### [facility] ([id number]) [address] [place] [address] Monocytes (Bld) [#/Vol] 0.5 10*3/uL Normal 0-0.9 [facility] Comment on above: Performed By: #### 1 3965-9, CBCA, FEPR, THYR, 6-4, 2131-9, 4-8, IMEL, SPE #### [facility] ([id number]) [address], [address] [place] [address] #### MTHFRS #### [facility] ([id number]) [address] [place] [address] Monocytes/100 WBC (Bld) 10.3 % Normal [facility] Comment on above: Performed By: #### 1 3965-9, CBCA, FEPR, THYR, 2276-4, 2131-9, 2284-8, IMEL, SPE #### [facility] ([id number]) [address] [place] [address] #### MTHFRS #### [facility] ([id number]) [address] [place] [address] Neutrophils/100 WBC (Bld) 58.5 % Normal [facility] Comment on above: Performed By: #### 1 3965-9, CBCA, FEPR, THYR, 2276-4, 2-9, 2284-8, IMEL, SPE #### [facility] ([id number]) [address], [address] [place] [address] #### MTHFRS #### [facility] ([id number]) [address] [place] [address] Platelet mean volume (Bld) [Entitic vol] 9.2 fL Normal 7-12 [facility] Comment on above: Performed By: #### 1 3965-9, CBCA, FEPR, THYR, 2276-4, 2132-9, 2284-8, IMEL, SPE #### [facility] ([id number]) [address], [address] [place] [address] #### MTHFRS #### [facility] ([id number]) [address] [place] [address] Platelets (Bld) [#/Vol] 176 10*3/uL Normal 150-450 [facility] Comment on above: Performed By: #### 1 3965-9, CBCA, FEPR, THYR, 2276-4, 2132-9, 2284-8, IMEL, SPE #### [facility] ([id number]) [address] [place] [address] #### MTHFRS #### [facility] ([id number]) [address] [place] [address] RBC COUNT 4.65 X10E12/L Normal 3.80-5.20 [facility] Comment on above: Performed By: #### 1 3965-9, CBCA, FEPR, THYR, 2276-4, 2132-9, 2284-8, IMEL, SPE #### [facility] ([id number]) [address] [place] [address] #### MTHFRS #### [facility] ([id number]) [address] [place] [address] WBC (Bld) [#/Vol] 5.2 10*3/uL Normal 4.0-11.0 [facility] Comment on above: Performed By: #### 1 3965-9, CBCA, FEPR, THYR, 2276-4, 2131-9, 4-8, IMEL, SPE #### [facility] ([id number]) [address], [address] [place] [address] #### MTHFRS #### [facility] ([id number]) [address] [place] [address] COMPREHENSIVE METABOLIC PANE Gadiel 02-11-2024 Albumin [Mass/Vol] 4.1 g/dL Normal 3.2-5.3 [facility] Comment on above: Performed By: #### 1 3965-9, CBCA, FEPR, THYR, 6-4, 9, 4-8, IMEL, SPE #### [facility] ([id number]) [address] [place] [address] #### MTHFRS #### [facility] ([id number]) [address] [place] [address] ALP [Catalytic activity/Vol] 42 U/L Normal 39-130 [facility] Comment on above: Performed By: #### 1 3965-9, CBCA, FEPR, THYR, 6-4, 2132-07, 2283-8, IMEL, SPE #### [facility] ([id number]) [address] [place] [address] #### MTHFRS #### [facility] ([id number]) [address] [place] [address] ALT [Catalytic activity/Vol] 18 U/L Normal 0-31 [facility] Comment on above: Performed By: #### 1 3965-9, CBCA, FEPR, THYR, 6-4, 9, 2284-8, IMEL, SPE #### [facility] ([id number]) [address], [address] [place] [address] #### MTHFRS #### [facility] ([id number]) [address] [place] [address]5746 Anion gap [Moles/Vol] 7 mmol/L Normal 5-15 [facility] Comment on above: Performed By: #### 1 3965-9, CBCA, FEPR, THYR, 6-4, 2131-9, 2283-8, IMEL, SPE #### [facility] ([id number]) [address], [address] [place] [address] #### MTHFRS #### [facility] ([id number]) [address] [place] [address] 28771 AST [Catalytic activity/Vol] 27 U/L Normal 0-41 [facility] Comment on above: Performed By: #### 1 3965-9, CBCA, FEPR, THYR, 6-4, 9, 2284-06, IMEL, SPE #### [facility] ([id number]) [address], [address] [place] [address] #### MTHFRS #### [facility] ([id number]) [address] [place] [address] 32234 Bilirubin [Mass/Vol] 0.5 mg/dL Normal 0.3-1.2 [facility] Comment on above: Performed By: #### 1 3965-9, CBCA, FEPR, THYR, 6-4, 9, 8, IMEL, SPE #### [facility] ([id number]) [address], [address] [place] [address] #### MTHFRS #### [facility] ([id number]) [address] [place] [address] 03608 Calcium [Mass/Vol] 9.4 mg/dL Normal 8.5-10.5 [facility] Comment on above: Performed By: #### 1 3965-9, CBCA, FEPR, THYR, 6-4, 9, 2283-8, IMEL, SPE #### [facility] ([id number]) [address] [facility], [address] [place] [address] #### MTHFRS #### [facility] ([id number]) [address] [place] [address] 64400 Chloride [Moles/Vol] 104 mmol/L Normal 98-109 [facility] Comment on above: Performed By: #### 1 3965-9, CBCA, FEPR, THYR, 6-4, 2132-07, 2283-8, IMEL, SPE #### [facility] ([id number]) [address] [facility], [address] [place] [address] #### MTHFRS #### [facility] ([id number]) [address] [place] [address] 24699 CO2 [Moles/Vol] 25 mmol/L Normal 22-32 [facility] Comment on above: Performed By: #### 1 3965-9, CBCA, FEPR, THYR, 6-4, 2132-07, 8, IMEL, SPE #### [facility] ([id number]) [address] [facility], [address] [place] [address] #### MTHFRS #### [facility] ([id number]) [address] [place] [address] 96432 Creatinine [Mass/Vol] 1.01 mg/dL High 0.40-1.00 [facility] Comment on above: Result Comment: METH OD TRACEABLE TO IDMS STANDARD Performed By: #### 1 3965-9, CBCA, FEPR, THYR, 6-4, 2132-07, 8, IMEL, SPE #### [facility] ([id number]) [address] [place] [address] #### MTHFRS #### [facility] ([id number]) [address] [place] [address] 04057 GFR/1.73 sq M.predicted among non-blacks MDRD (S/P/Bld) [Vol rate/Area] 57 mL/min/{1.73_m2} Low >59 [facility] Comment on above: Result Comment: Reported eGFR is based on the CKD-EPI 2020 equation that does not use a race coefficient. Performed By: #### 1 3965-9, CBCA, FEPR, THYR, 6-, 2132-07, 2284-06, IMEL, SPE #### [facility] ([id number]) [address] [place] [address] #### MTHFRS #### [facility] ([id number]) [address] [place] [address] 38639 Glucose [Mass/Vol] 114 mg/dL High 65-99 [facility] Comment on above: Performed By: #### 1 3965-9, CBCA, FEPR, THYR, 6-4, 2132-07, 2284-06, IMEL, SPE #### [facility] ([id number]) [address] [place] [address] #### MTHFRS #### [facility] ([id number]) [address] [place] [address] 28428 Potassium [Moles/Vol] 4.2 mmol/L Normal 3.5-5.0 [facility] Comment on above: Performed By: #### 1 3965-9, CBCA, FEPR, THYR, 6-4, 2132-07, 2284-06, IMEL, SPE #### [facility] ([id number]) [address], [address] [place] [address] #### MTHFRS #### [facility] ([id number]) [address] [place] [address] 50039 Protein [Mass/Vol] 7.2 g/dL Normal 6.0-8.0 [facility] Comment on above: Performed By: #### 1 3965-9, CBCA, FEPR, THYR, 2276-4, 2131-9, 2284-8, IMEL, SPE #### [facility] ([id number]) [address], [address] [place] [address] #### MTHFRS #### [facility] ([id number]) [address] [place] [address] 92815 Sodium [Moles/Vol] 136 mmol/L Normal 134-146 [facility] Comment on above: Performed By: #### 1 3965-9, CBCA, FEPR, THYR, 2276-4, 2131-9, 2284-8, IMEL, SPE #### [facility] ([id number]) [address], [address] [place] [address] #### MTHFRS #### [facility] ([id number]) [address] [place] [address] 00514 Urea nitrogen [Mass/Vol] 22 mg/dL Normal 5-27 [facility] Comment on above: Performed By: #### 1 3965-9, CBCA, FEPR, THYR, 2276-4, 2-9, 2284-8, IMEL, SPE #### [facility] ([id number]) [address], [address] [place] [address] #### MTHFRS #### [facility] ([id number]) [address] [place] [address] ABDOMEN AND PELVIS W CONT on [...] Mooney MD on 02/11/2024 2:04 PM Normal [facility] CT BRAIN WO CONTon CT BRAIN [...] Dharmesh Mittal on 02/11/2024 1:52 PM Normal [facility] CT CERVICAL SPINE WO CONTon 02-11-2024 [...] Davis DO on 02/11/2024 1:52 PM Normal [facility] CT CHEST W CONTon 02-11-2024 CT [...] Ann MD on 02/11/2024 2:19 PM Normal [facility] LIPASEon 02-11-2024 Lipase [Catalytic activity/Vol] 38 U/L Normal 17-40 [facility] Comment on above: Performed By: #### 1 3965-9, CBCA, FEPR, THYR, 2276-4, 2132-9, 2284-8, IMEL, SPE #### [facility] ([id number]) [address], [address] [place] [address] #### MTHFRS #### [facility] ([id number]) [address] [place] [address], [place] [address] CBC AND AUTO DIFFon 01-11-20 24 ABSOLUTE BASOPHIL 0.1 X10E9/L Normal 0.0-0.2 [facility] Comment on above: Performed By: #### 1 3965-9, CBCA, FEPR, THYR, 6-4, 9, 2283-8, IMEL, SPE #### [facility] ([id number]) [address] [facility], [address] [place] [address] #### MTHFRS #### [facility] ([id number]) [address] [place] [address] 75737 ABSOLUTE NEUTROPHIL 2.4 X10E9/L Normal 1.5-6.6 [facility] Comment on above: Performed By: #### 1 3965-9, CBCA, FEPR, THYR, 2275-4, 2132-07, 8, IMEL, SPE #### [facility] ([id number]) [address] [facility], [address] [place] [address] #### MTHFRS #### [facility] ([id number]) [address] [place] [address] 53486 Basophils/100 WBC (Bld) 1.4 % Normal [facility] Comment on above: Performed By: #### 1 3965-9, CBCA, FEPR, THYR, 6-4, 2132-07, 8, IMEL, SPE #### [facility] ([id number]) [address] [facility], [address] [place] [address] #### MTHFRS #### [facility] ([id number]) [address] [place] [address] 06070 Eosinophils (Bld) [#/Vol] 0.1 10*3/uL Normal 0.0-0.4 [facility] Comment on above: Performed By: #### 1 3965-9, CBCA, FEPR, THYR, 6-4, 9, 2283-8, IMEL, SPE #### [facility] ([id number]) [address], [address] [place] [address] #### MTHFRS #### [facility] ([id number]) [address] [place] [address] 87651 Eosinophils/100 WBC (Bld) 2.8 % Normal [facility] Comment on above: Performed By: #### 1 3965-9, CBCA, FEPR, THYR, 2276-4, 2132-9, 2284-8, IMEL, SPE #### [facility] ([id number]) [address], [address] [place] [address] #### MTHFRS #### [facility] ([id number]) [address] [place] [address] 61690 Erythrocyte distribution width (RBC) [Ratio] 15.5 % High 11.5-15.0 [facility] Comment on above: Performed By: #### 1 3965-9, CBCA, FEPR, THYR, 2276-4, 2-9, 2284-8, IMEL, SPE #### [facility] ([id number]) [address], [address] [place] [address] #### MTHFRS #### [facility] ([id number]) [address] [place] [address] 43147 Hematocrit (Bld) [Volume fraction] 38.4 % Normal 35-47 [facility] Comment on above: Performed By: #### 1 3965-9, CBCA, FEPR, THYR, 2276-4, 2132-9, 2284-8, IMEL, SPE #### [facility] ([id number]) [address], [address] [place] [address] #### MTHFRS #### [facility] ([id number]) [address] [place] [address] 32258 Hemoglobin (Bld) [Mass/Vol] 12.5 g/dL Normal 11.7-15.5 [facility] Comment on above: Performed By: #### 1 3965-9, CBCA, FEPR, THYR, 2276-4, 2131-9, 2283-8, IMEL, SPE #### [facility] ([id number]) [address], [address] [place] [address] #### MTHFRS #### [facility] ([id number]) [address] [place] [address] 26932 Lymphocytes (Bld) [#/Vol] 1.7 10*3/uL Normal 1.0-3.5 [facility] Comment on above: Performed By: #### 1 3965-9, CBCA, FEPR, THYR, 6-4, 2132-07, 8, IMEL, SPE #### [facility] ([id number]) [address], [address] [place] [address] #### MTHFRS #### [facility] ([id number]) [address] [place] [address] 82995 Lymphocytes/100 WBC (Bld) 35.8 % Normal [facility] Comment on above: Performed By: #### 1 3965-9, CBCA, FEPR, THYR, 6-4, 2132-07, 2284-06, IMEL, SPE #### [facility] ([id number]) [address], [address] [place] [address] #### MTHFRS #### [facility] ([id number]) [address] [place] [address] 10285 MCH (RBC) [Entitic mass] 28.5 pg Normal 27-34 [facility] Comment on above: Performed By: #### 1 3965-9, CBCA, FEPR, THYR, 6-4, 2132-07, 8, IMEL, SPE #### [facility] ([id number]) [address], [address] [place] [address] #### MTHFRS #### [facility] ([id number]) [address] [place] [address] 53487 MCHC (RBC) [Mass/Vol] 32.7 g/dL Normal 32-36 [facility] Comment on above: Performed By: #### 1 3965-9, CBCA, FEPR, THYR, 6-4, 9, 2283-8, IMEL, SPE #### [facility] ([id number]) [address] [facility], [address] [place] [address] #### MTHFRS #### [facility] ([id number]) [address] [place] [address] 03999 MCV (RBC) [Entitic vol] 87 fL Normal 80-100 P [facility] Comment on above: Performed By: #### 1 3965-9, CBCA, FEPR, THYR, 6-4, 2132-07, 8, IMEL, SPE #### [facility] ([id number]) [address] [facility], [address] [place] [address] #### MTHFRS #### [facility] ([id number]) [address] [place] [address] 45989 Monocytes (Bld) [#/Vol] 0.5 10*3/uL Normal 0-0.9 [facility] Comment on above: Performed By: #### 1 3965-9, CBCA, FEPR, THYR, 6-4, 2132-07, 8, IMEL, SPE #### [facility] ([id number]) [address] [place] [address] #### MTHFRS #### [facility] ([id number]) [address] [place] [address] 53082 Monocytes/100 WBC (Bld) 10.0 % Normal [facility] Comment on above: Performed By: #### 1 3965-9, CBCA, FEPR, THYR, 6-4, 9, 2283-8, IMEL, SPE #### [facility] ([id number]) [address] [place] [address] #### MTHFRS #### [facility] ([id number]) [address] [place] [address] 68522 Neutrophils/100 WBC (Bld) 50.0 % Normal [facility] Comment on above: Performed By: #### 1 3965-9, CBCA, FEPR, THYR, 2275-, 2132-07, 2284-06, IMEL, SPE #### [facility] ([id number]) [address], [address] [place] [address] #### MTHFRS #### [facility] ([id number]) [address] [place] [address] 54572 Platelet mean volume (Bld) [Entitic vol] 9.6 fL Normal 7-12 [facility] Comment on above: Performed By: #### 1 3965-9, CBCA, FEPR, THYR, 2275-, 2132-07, 2284-06, IMEL, SPE #### [facility] ([id number]) [address], [address] [place] [address] #### MTHFRS #### [facility] ([id number]) [address] [place] [address] 52730 Platelets (Bld) [#/Vol] 194 10*3/uL Normal 150-450 [facility] Comment on above: Performed By: #### 1 3965-9, CBCA, FEPR, THYR, 6-4, 2132-07, 2284-06, IMEL, SPE #### [facility] ([id number]) [address] [place] [address] [address] [place] [address] #### MTHFRS #### [facility] ([id number]) [address] [place] [address] 43119 RBC COUNT 4.41 X10E12/L Normal 3.80-5.20 [facility] Comment on above: Performed By: #### 1 3965-9, CBCA, FEPR, THYR, 2276-4, 2132-9, 2284-8, IMEL, SPE #### [facility] ([id number]) [address] [place] [address], [address] [address] #### MTHFRS #### [facility] ([id number]) [address] [place] [address] 44859 WBC (Bld) [#/Vol] 4.9 10*3/uL Normal 4.0-11.0 [facility] Comment on above: Performed By: #### 1 3965-9, CBCA, FEPR, THYR, 2276-4, 2132-9, 2284-8, IMEL, SPE #### [facility] ([id number]) [address] [place] [address] #### MTHFRS #### [facility] ([id number]) [address] [place] [address] 23624 Clinical Pathologyon 024 Clinical Pathology Normal [facility] Comment on above: Result Comment: [facility] [address] [place] [address] Clinical Pathology Report Patient Name:ANGELA RUTH:1945 (Age: 78)Gender:FTaken:4Reported:4Physician(s):MARCE Rayo ([phone])Copy To: Rec. #:[id number]: #[id number] Final Pathologic Diagnosis No monoclonal protein identified. Report Electronically Signed Out 4Dduncan Alamo [place] [address], License number: [id number]. Clinical History G25.0, R26.89, G62.9, R79.0. SERUM IEP SAMPLE NUMBER: [id number] IMMUNOGLOBULIN LEVELS (mg/dL): IgG : 652 IgA : 225 IgM : 64 Free [place]: 3.45 Free Lambda: 2.10 Free [place]/Lambda ratio: 1.64 Specimen(s) Received Serum IEP Fee Codes(s): 1; 77500-05 FERRITINon 01-11-2024 Ferritin [Mass/Vol] 47 ng/mL Normal 11-307 [facility] Comment on above: Performed By: #### 1 3965-9, CBCA, FEPR, THYR, 2276-4, 2132-9, 2284-8, IMEL, SPE #### [facility] ([id number]) [address] [place] [address] #### MTHFRS #### [facility] ([id number]) [address] [place] [address] 99210 Folate [Mass/Vol]on 01-11-20 24 FOLIC ACID >25.0 Normal >5.8 [facility] Comment on above: Result Comment: NEW REFERENCE RANGE Performed By: #### 1 3965-9, CBCA, FEPR, THYR, 2276-4, 2132-9, 2284-8, IMEL, SPE #### [facility] ([id number]) [address] [place] [address], [address] [address] #### MTHFRS #### [facility] ([id number]) [address] [place] [address] 66405 HGB A1C (GLYCO-HGB)on 2023 Glucose [Mass/Vol] 108 mg/dL Normal [facility] Comment on above: Performed By: #### 1 3965-9, CBCA, FEPR, THYR, 6-4, 2132-07, 2284-06, IMEL, SPE #### [facility] ([id number]) [address] [facility] [facility] [address] [place] [address] #### MTHFRS #### [facility] ([id number]) [address] [place] [address] 63680 HbA1c (Bld) [Mass fraction] 5.4 % Normal 4.4-5.6 [facility] Comment on above: Result Comment: [...] THYR, 2276-02, 2132-07, 2284-06, IMEL, SPE #### [facility] ([id number]) [address] [facility], [facility] [address] [place] [address] #### MTHFRS #### [facility] ([id number]) [address] [place] [address] 70192 Homocysteine [Moles/Vol]on 0 01-11-2024 HOMOCYSTEINE 14.23 mcmol/L Normal 3.36-20.44 [facility] Comment on above: Performed By: #### 1 3965-9, CBCA, FEPR, THYR, 2276-02, 2132-07, 2284-06, IMEL, SPE #### [facility] ([id number]) [address] [facility], [facility] [address] [place] [address] #### MTHFRS #### [facility] ([id number]) [address] [place] [address] 50221 IMMUNOELECTROPHORESIS FOR TH ERAPY MONITORINGon 01-11-2024 FREE IRASEMA/LAMBD RATIO 1.64 Normal 0.26-1.65 [facility] Comment on above: Performed By: #### 1 3965-9, CBCA, FEPR, THYR, 2276-4, 2-9, 2284-8, IMEL, SPE #### [facility] ([id number]) [address], [address] [place] [address] #### MTHFRS #### [facility] ([id number]) [address] [place] [address] 64344 FREE KAPPA LT CHAINS 3.45 mg/dL High 0.33-1.94 [facility] Comment on above: Performed By: #### 1 3965-9, CBCA, FEPR, THYR, 6-4, 2-9, 4-8, IMEL, SPE #### [facility] ([id number]) [address] [place] [address], [address] [place] [address] #### MTHFRS #### [facility] ([id number]) [address] [place] [address] 28454 FREE LAMBDA LT CHAINS 2.10 mg/dL Normal 0.57-2.63 [facility] Comment on above: Performed By: #### 1 3965-9, CBCA, FEPR, THYR, 6-4, 2-9, 2284-8, IMEL, SPE #### [facility] ([id number]) [address] [place] [address], [address] [place] [address] #### MTHFRS #### [facility] ([id number]) [address] [place] [address] 53287 IgA [Mass/Vol] 225 mg/dL Normal 68-378 [facility] Comment on above: Performed By: #### 1 3965-9, CBCA, FEPR, THYR, 2276-4, 2131-9, 2284-8, IMEL, SPE #### [facility] ([id number]) [address] [place] [address] #### MTHFRS #### [facility] ([id number]) [address] [place] [address] 52257 IgG [Mass/Vol] 652 mg/dL Normal 635-1741 [facility] Comment on above: Performed By: #### 1 3965-9, CBCA, FEPR, THYR, 6-4, 2131-9, 4-8, IMEL, SPE #### [facility] ([id number]) [address] [place] [address] #### MTHFRS #### [facility] ([id number]) [address] [place] [address] 04871 IgM [Mass/Vol] 64 mg/dL Normal 45-281 [facility] Comment on above: Performed By: #### 1 3965-9, CBCA, FEPR, THYR, 2276-4, 2131-9, 4-8, IMEL, SPE #### [facility] ([id number]) [address] [place] [address] #### MTHFRS #### [facility] ([id number]) [address] [place] [address] 70882 IMMUNE PROFILE INTERP SEE SEPARATE REPORT Normal [facility] Comment on above: Performed By: #### 1 3965-9, CBCA, FEPR, THYR, 2276-4, 2131-9, 4-8, IMEL, SPE #### [facility] ([id number]) [address] [place] [address] #### MTHFRS #### [facility] ([id number]) [address] [place] [address] 79540 IRON PROFILEon 01-11-2024 Iron [Mass/Vol] 100 ug/dL Normal 50-170 [facility] Comment on above: Performed By: #### 1 3965-9, CBCA, FEPR, THYR, 2276-4, 2-9, 2284-8, IMEL, SPE #### [facility] ([id number]) [address], [address] [place] [address] #### MTHFRS #### [facility] ([id number]) [address] [place] [address] 20836 IRON BINDING 438 ug/dL High 250-425 [facility] Comment on above: Performed By: #### 1 3965-9, CBCA, FEPR, THYR, 2276-4, 2131-9, 4-8, IMEL, SPE #### [facility] ([id number]) [address] [place] [address], [address] [place] [address] #### MTHFRS #### [facility] ([id number]) [address] [place] [address] IRON SATURATION 23 % SATURATION Normal 15-50 [facility] Comment on above: Performed By: #### 1 3965-9, CBCA, FEPR, THYR, 2276-4, 2131-9, 4-8, IMEL, SPE #### [facility] ([id number]) [address], [address] [place] [address] #### MTHFRS #### [facility] ([id number]) [address] [place] [address] MTHFRon 01-11-2024 MTHFR INTERPRETATION SEE NOTE Normal [facility] Comment on above: Result Comment: NOTE Indication for testing: Determine genetic contribution to hyperhomocysteinemia. Negative: Neither of the common MTHFR gene variants tested, c.665C>T (previously designated C677T) and c.1286A>C (previously designated V5992K), were detected. Other causes of elevated homocysteine [...] has an effect on cardiovascular disease. The [employer] Practice Guidelines indicate [...] a contributing factor to hyperhomocysteinemia. Variants Tested: c.665C>T(p.Bdr004Jtk) and c.1286A>C(p.Rif985Djx). (legacy names C677T and G3557A, respectively). Clinical Sensitivity: Undefined; hyperhomocysteinemia is caused [...] developed and its performance characteristics determined by [facility]. It has not been cleared or approved by the [place] Food and Drug Administration. This test was performed in a CLIA certified laboratory and is intended for clinical purposes. Counseling and informed consent are recommended for genetic testing. Consent forms are available online. Performed By: [facility] [address] [place] [address] [employer]: Jacob Sparks MD, PhD CLIA Number: [id number] Performed By: #### 1 3965-9, CBCA, FEPR, THYR, 2276-02, 2132-07, 2284-06, IMEL, SPE #### [facility] ([id number]) [address], [address] [place] [address] #### MTHFRS #### [facility] ([id number]) [address] [place] [address], [place] [address] MTHFR MUT [id number] Negative Normal [facility] Comment on above: Performed By: #### 1 3965-9, CBCA, FEPR, THYR, 2276-02, 2132-07, 2284-06, IMEL, SPE #### [facility] ([id number]) [address], [address] [place] [address] #### MTHFRS #### [facility] ([id number]) [address] [place] [address] MTHFR MUT C665CT Negative Normal [facility] Comment on above: Performed By: #### 1 3965-9, CBCA, FEPR, THYR, 2276-02, 2132-07, 2284-06, IMEL, SPE #### [facility] ([id number]) [address], [address] [place] [address] #### MTHFRS #### [facility] ([id number]) [address] [place] [address] MTHFR PCR SPECIMEN WHOLE BLOOD Normal [facility] Comment on above: Performed By: #### 1 3965-9, CBCA, FEPR, THYR, 2276-02, 2132-07, 2284-06, IMEL, SPE #### [facility] ([id number]) [address], [address] [place] [address] #### MTHFRS #### [facility] ([id number]) [address] [place] [address] Methylmalonate [Moles/Vol]on 01-11-2024 MMA QN 0.14 umol/L Normal <=0.40 [facility] Comment on above: Result Comment: NOTE This test was developed and its performance characteristics determined by [facility]'s [facility] Pathology and Laboratory Medicine [place] ([facility]). It has not been cleared or approved by the FDA. [facility] is regulated under CLIA as qualified to perform high-complexity testing. This test is used for clinical purposes. It should not be regarded as investigational or for research. Test Performed By: [place] [address] [place] Mixer: Berry Larsen III, M.D. [place] #[id number] Performed By: #### 1 3965-9, CBCA, FEPR, THYR, 6-4, 9, 4-8, IMEL, SPE #### [facility] ([id number]) [address] [place] [address], [address] [place] [address] #### MTHFRS #### [facility] ([id number]) [address] [place] [address] SERUM PROTEIN ELECTROPHORESI Son 01-11-2024 Albumin [Mass/Vol] 4.0 g/dL Normal 3.4-5.3 [facility] Comment on above: Performed By: #### 1 3965-9, CBCA, FEPR, THYR, 6-4, 2131-9, 4-8, IMEL, SPE #### [facility] ([id number]) [address] [place] [address], [address] [place] [address] #### MTHFRS #### [facility] ([id number]) [address] [place] [address] ALPHA 1 GLOBULIN 0.3 g/dL Normal 0.1-0.4 [facility] Comment on above: Performed By: #### 1 3965-9, CBCA, FEPR, THYR, 6-4, 9, 4-8, IMEL, SPE #### [facility] ([id number]) [address], [address] [place] [address] #### MTHFRS #### [facility] ([id number]) [address] [place] [address] ALPHA 2 GLOBULIN 0.8 g/dL Normal 0.4-1.1 [facility] Comment on above: Performed By: #### 1 3965-9, CBCA, FEPR, THYR, 2275-4, 2132-07, 2283-8, IMEL, SPE #### [facility] ([id number]) [address] [facility] [facility], [address] [place] [address] #### MTHFRS #### [facility] ([id number]) [address] [place] [address] BETA GLOBULIN 0.8 g/dL Normal 0.5-1.2 [facility] Comment on above: Performed By: #### 1 3965-9, CBCA, FEPR, THYR, 2275-4, 2132-07, 8, IMEL, SPE #### [facility] ([id number]) [address], [address] [place] [address] #### MTHFRS #### [facility] ([id number]) [address] [place] [address] GAMMA GLOBULIN 0.7 g/dL Normal 0.5-1.6 [facility] Comment on above: Performed By: #### 1 3965-9, CBCA, FEPR, THYR, 6-4, 2132-07, 2283-8, IMEL, SPE #### [facility] ([id number]) [address], [address] [place] [address] #### MTHFRS #### [facility] ([id number]) [address] [place] [address] PROT. ELECTROPHORESIS INTERP Unremarkable protein distribution, no monoclonal bands. Normal [facility] Comment on above: Performed By: #### 1 3965-9, CBCA, FEPR, THYR, 2276-4, 2132-9, 2284-8, IMEL, SPE #### [facility] ([id number]) [address] [place] [address], [address] [place] [address] #### MTHFRS #### [facility] ([id number]) [address] [place] [address] Protein [Mass/Vol] 6.5 g/dL Normal 6.0-8.0 [facility] Comment on above: Performed By: #### 1 3965-9, CBCA, FEPR, THYR, 2276-4, 2132-9, 2284-8, IMEL, SPE #### [facility] ([id number]) [address] [place] [address], [address] [place] [address] #### MTHFRS #### [facility] ([id number]) [address] [place] [address] THYROID PROFILEon 01-11-2024 Free T4 [Mass/Vol] 1.09 ng/dL Normal 0.61-1.60 [facility] Comment on above: Performed By: #### 1 3965-9, CBCA, FEPR, THYR, 2276-4, 2132-9, 2284-8, IMEL, SPE #### [facility] ([id number]) [address] [place] [address], [address] [place] [address] #### MTHFRS #### [facility] ([id number]) [address] [place] [address] TSH 0.60 uIU/mL Normal 0.49-4.67 [facility] Comment on above: Performed By: #### 1 3965-9, CBCA, FEPR, THYR, 2276-4, 2132-9, 2284-8, IMEL, SPE #### [facility] ([id number]) [address], [address] [place] [address] #### MTHFRS #### [facility] ([id number]) [address] [place] [address] VITAMIN B12on 01-11-2024 Cobalamin (Vitamin B12) [Mass/Vol] 407 pg/mL Normal 180-914 [facility] Comment on above: Performed By: #### 1 3965-9, CBCA, FEPR, THYR, 2276-4, 2132-9, 2284-8, IMEL, SPE #### [facility] ([id number]) [address], [address] [place] [address] #### MTHFRS #### [facility] ([id number]) [address] [place] [address] CT Abdomen/Pelvis w + w/o Co ntraston [...] by Felix Dominguez on 12/07/2022 1159 Normal [facility] XR HAND LEFT (MIN 3 VIEWS)on [...] Matt Cowart MD 11/07/22 Final result Normal [facility] XR HAND LEFT (MIN 3 VIEWS) [...] Matt Cowart MD 11/07/22 Final result Normal [facility] XR Chest 2 Views*on 09-10-20 XR [...] by Bartolome Monson on 09/10/2022 1507 Normal [facility] Complete Blood Count with Au to Diffon 12-11-2021 Basophils (Bld) [#/Vol] 0.07 10*3/uL Normal 0.00-0.20 [facility] Comment on above: Performed By: #### C MP, CBCAD #### [facility] [address], [place] [id number] Basophils/100 WBC (Bld) 0.9 % Normal N [facility] Comment on above: Performed By: #### C MP, CBCAD #### [facility] [address], [place] [id number] Eosinophils (Bld) [#/Vol] 0.17 10*3/uL Normal 0.02-0.50 [facility] Comment on above: Performed By: #### C MP, CBCAD #### [facility] [address], [place] [id number] Eosinophils/100 WBC (Bld) 2.3 % Normal [facility] Comment on above: Performed By: #### C MP, CBCAD #### [facility] [address], [place] [id number] Erythrocyte distribution width (RBC) [Ratio] 16.4 % High 11.0-15.0 [facility] Comment on above: Performed By: #### C MP, CBCAD #### [facility] [address], [place] [id number] Hematocrit (Bld) [Volume fraction] 42.9 % Normal 35.0-47.0 [facility] Comment on above: Performed By: #### C MP, CBCAD #### [facility] [address], [place] [id number] Hemoglobin (Bld) [Mass/Vol] 13.5 g/dL Normal 11.6-15.5 [facility] Comment on above: Performed By: #### C MP, CBCAD #### [facility] [address], [place] [id number] Lymphocytes (Bld) [#/Vol] 2.7 10*3/uL Normal 0.9-3.9 [facility] Comment on above: Performed By: #### C MP, CBCAD #### [facility] [address], [place] [id number] Lymphocytes/100 WBC (Bld) 36.1 % Normal [facility] Comment on above: Performed By: #### C MP, CBCAD #### [facility] [address], [place] [id number] MCH (RBC) [Entitic mass] 27.7 pg Normal 27.0-33.0 [facility] Comment on above: Performed By: #### C MP, CBCAD #### [facility] [address], [place] [id number] MCHC (RBC) [Mass/Vol] 31.5 g/dL Low 32.0-36.0 [facility] Comment on above: Performed By: #### C MP, CBCAD #### [facility] [address], [place] [id number] MCV (RBC) [Entitic vol] 88 fL Normal 80-100 [facility] Comment on above: Performed By: #### C MP, CBCAD #### [facility] [address], [place] [id number] Monocytes (Bld) [#/Vol] 0.8 10*3/uL Normal 0.2-0.9 [facility] Comment on above: Performed By: #### C MP, CBCAD #### [facility] [address], [place] [id number] Monocytes/100 WBC (Bld) 10.8 % Normal N [facility] Comment on above: Performed By: #### C MP, CBCAD #### [facility] [address], [place] [id number] Neutrophils (Bld) [#/Vol] 3.7 10*3/uL Normal 1.5-7.8 [facility] Comment on above: Performed By: #### C MP, CBCAD #### [facility] [address], [place] [id number] Neutrophils/100 WBC (Bld) 49.2 % Normal [facility] Comment on above: Performed By: #### C MP, CBCAD #### [facility] [address], [place] [id number] Platelet mean volume (Bld) [Entitic vol] 11.00 fL Normal 7.50-12.50 [facility] Comment on above: Performed By: #### C MP, CBCAD #### [facility] [address], [place] [id number] Platelets (Bld) [#/Vol] 246 10*3/uL Normal 140-400 [facility] Comment on above: Performed By: #### C MP, CBCAD #### [facility] [address], [place] [id number] RBC (Bld) [#/Vol] 4.88 10*6/uL Normal 3.90-5.20 [facility] Comment on above: Performed By: #### C MP, CBCAD #### [facility] [address], [place] [id number] RDW-SD 53.1 fL High 37.0-50.0 [facility] Comment on above: Performed By: #### C MP, CBCAD #### [facility] [address], [place] [id number] WBC (Bld) [#/Vol] 7.5 10*3/uL Normal 3.8-11.0 [facility] Specialist Comment on above: Performed By: #### C MP, CBCAD #### [facility] [address], [place] [id number] Comprehensive Metabolic Pane gadiel 12-11-2021 Albumin [Mass/Vol] 4.2 g/dL Normal 3.6-5.1 [facility] Specialist Comment on above: Performed By: #### C MP, CBCAD #### [facility] [address], [place] [id number] Albumin/Globulin [Mass ratio] 1.7 {ratio} Normal 1.0-2.5 [facility] Comment on above: Performed By: #### C MP, CBCAD #### [facility] [address], [place] [id number] ALP [Catalytic activity/Vol] 71 U/L Normal 35-119 [facility] Comment on above: Performed By: #### C MP, CBCAD #### [facility] [address] [facility] [place] [id number] ALT [Catalytic activity/Vol] 12 U/L Normal 6-33 [facility] Comment on above: Result Comment: 10/22 Female reference range changed. Performed By: #### C MP, CBCAD #### [facility] [address] [facility] [place] [id number] Anion gap [Moles/Vol] 18 mmol/L Normal 12-20 [facility] Comment on above: Result Comment: Effe ctive 11/27/2019 reference range changed. Performed By: #### C MP, CBCAD #### [facility] [address] [facility] [place] [id number] AST [Catalytic activity/Vol] 15 U/L Normal 9-34 [facility] Comment on above: Performed By: #### C MP, CBCAD #### [facility] [address] [facility] [place] [id number] Bilirubin [Mass/Vol] 0.33 mg/dL Normal 0.30-1.20 [facility] Comment on above: Performed By: #### C MP, CBCAD #### [facility] [address], [place] [id number] BUN/CREA 35 Ratio High 6-22 [facility] Comment on above: Performed By: #### C MP, CBCAD #### [facility] [address] [facility] [place] [id number] Calcium [Mass/Vol] 9.4 mg/dL Normal 8.6-10.2 [facility] Comment on above: Performed By: #### C MP, CBCAD #### [facility] [address] [facility] [place] [id number] Chloride [Moles/Vol] 106 mmol/L Normal 98-107 [facility] Comment on above: Performed By: #### C MP, CBCAD #### [facility] [address] [facility] [place] [id number] CO2 [Moles/Vol] 24 mmol/L Normal 20-31 [facility] Comment on above: Performed By: #### C MP, CBCAD #### [facility] [address], [place] [id number] Creatinine [Mass/Vol] 0.9 mg/dL Normal 0.6-1.[address] [facility] Specialist Comment on above: Performed By: #### C MP, CBCAD #### [facility] [address], [place] [id number] eGFRAA 70 mL/min/1.73m2 Normal >60 [facility] Specialist Comment on above: Performed By: #### C MP, CBCAD #### [facility] [address], [place] [id number] eGFRNAA 58 mL/min/1.73m2 Low >60 [facility] Special[facility] Comment on above: Performed By: #### C MP, CBCAD #### [facility] [address], [place] [id number] Globulin (S) [Mass/Vol] 2.5 g/dL Normal 1.9-3.7 [facility] Comment on above: Performed By: #### C MP, CBCAD #### [facility] [address], [place] [id number] Glucose [Mass/Vol] 84 mg/dL Normal 65-99 Paw[facility] fitz[facility] [place] [employer] Analyst Comment on above: Result Comment: For FASTING Glucose --- ADA reference ranges: Normal 65-99 mg/dl Prediabetes 100-125 Diabetes >/= 126 Performed By: #### C MP, CBCAD #### [facility] [address], [place] [id number] Potassium [Moles/Vol] 4.3 mmol/L Normal 3.5-5.[address] [facility] Specialist Comment on above: Performed By: #### C MP, CBCAD #### [facility] [address], [place] [id number] Protein [Mass/Vol] 6.7 g/dL Normal 6.1-8.1 Pawan fitzgerald [place] [employer] Comment on above: Performed By: #### C MP, CBCAD #### [facility] [address] [facility] [place] [id number] Sodium [Moles/Vol] 143 mmol/L Normal 135-146 Pawan fitzgerald [place] [employer] Data [employer]st Comment on above: Performed By: #### C MP, CBCAD #### [facility] [address] [place], [place] [id number] Urea nitrogen [Mass/Vol] 33 mg/dL High 7-25 [facility] Technical Data Analyst Comment on above: Performed By: #### C MP, CBCAD #### [facility] [address], [place] [id number] Calciumon 06-20-2019 Calcium [Mass/Vol] 10.0 mg/dL Normal 8.4-10.2 [facility] Diabetes [facility] Comment on above: Performed By: #### 1 030, 1035, 4500, 4510, 4520, 4581 #### [facility] Unless Otherwise Noted [address] [place] [address] / COLA #4724/CLIA # [id number] Creatinineon 06-20-2019 Creatinine [Mass/Vol] 0.9 mg/dL Normal 0.5-1.0 [facility] Comment on above: Performed By: #### 1 030, 1035, 4500, 4510, 4520, 4581 #### [facility] Unless Otherwise Noted [address] [address] / COLA #4724/CLIA # [id number] Creatinine [Mass/Vol] 74.8 Kg Normal [facility] Comment on above: Performed By: #### 1 030, 1035, 4500, 4510, 4520, 4581 #### [facility] Unless Otherwise Noted [address] [address] / COLA #4724/CLIA # [id number] Creatinine [Mass/Vol] 64.8 ml/m1.73 Normal [facility] Comment on above: Performed By: #### 1 030, 1035, 4500, 4510, 4520, 4581 #### [facility] Unless Otherwise Noted [address] [address] / COLA #4724/CLIA # [id number] Creatinine [Mass/Vol] 65.1 ml/m1.73 Normal [facility] Diabetes [facility] Comment on above: Performed By: #### 1 030, 1035, 4500, 4510, 4520, 4581 #### [facility] Unless Otherwise Noted [address] [address] / COLA #4724/CLIA # [id number] Creatinine [Mass/Vol] 78.7 ml/m1.73 Normal [facility] Comment on above: Performed By: #### 1 030, 1035, 4500, 4510, 4520, 4581 #### [facility] Diabetes [facility] Unless Otherwise Noted [address] [place] [address] / COLA #4724/CLIA # [id number] FT06-20-2019 FT3 2.80 pg/mL Normal 2.45-5.93 [facility] Diabetes [facility] Comment on above: Performed By: #### 1 030, 1035, 4500, 4510, 4520, 4581 #### [facility] Unless Otherwise Noted [address] [address] / COLA #4724/CLIA # [id number] FT06-20-2019 Free T4 [Mass/Vol] 1.93 ng/dL Normal 0.78-2.44 [facility] Diabetes [facility] Comment on above: Performed By: #### 1 030, 1035, 4500, 4510, 4520, 4581 #### [facility]ocrine [facility] Diabetes [facility] Unless Otherwise Noted [address] [address] / COLA #4724/CLIA # [id number] TSHon 06-20-2019 TSH Qn 0.57 uIU/ml Normal 0.47-4.68 [facility] Comment on above: Performed By: #### 1 030, 1035, 4500, 4510, 4520, 4581 #### [facility] Unless Otherwise Noted [address] [facility] [address] [place] [address] / COLA #4724/CLIA # [id number] VITAMIN D 25on 06-20-2019 VITAMIN D 25 51.5 ng/ml Normal 30.0-100.0 [facility] Comment on above: Result Comment: Defi cient <20 Insufficient 20-<30 Sufficient 30-100 Potiential Toxicity >100 Performed By: #### 1 030, 1035, 4500, 4510, 4520, 4581 #### [facility] Unless Otherwise Noted [address] [facility] [address] [place] [address] / COLA #4724/CLIA # [id number] Basic Metabolic Profon 05-06 (cont.) Normal [facility] Comment on above: Result Comment: Aver age GFR for 70 or more years old: 75 mL/min/1.73sq mChronic Kidney Disease: <60 mL/min/1.73sq mKidney failure: <15 mL/min/1.73sq meGFR calculated using average adult body mass. Additional eGFR calculator available at:[email or web address] at [facility] [address] [facility]. [place], [place] [id number] ([phone] Performed By: #### C DP, BMP ####[facility] [facility] [place] [address] Anion gap 14 mmol/L Normal 9-17 [facility] Comment on above: Performed By: #### C DP, BMP ####[facility] [place] [address] Calcium 9.6 mg/dL Normal 8.6-10.4 [facility] Comment on above: Performed By: #### C DP, BMP ####[address] [address] Chloride 106 mmol/L Normal 98-107 [facility] Comment on above: Performed By: #### C DP, BMP ####[address] [address] CO2 26 mmol/L Normal 20-31 [facility] Comment on above: Performed By: #### C DP, BMP ####[address] [address] Creatinine 0.91 mg/dL High 0.50-0.90 [facility] Comment on above: Performed By: #### C DP, BMP ####[address] [address] eGFR (non-black) mL/min/{1.73_m2} Normal >60 [place] Comment on above: Performed By: #### C DP, BMP ####[address] [address] Glucose mass conc 99 mg/dL Normal 70-99 [facility] Comment on above: Performed By: #### C DP, BMP ####[address] [address] Potassium molar conc 4.2 mmol/L Normal 3.7-5.3 [facility] Comment on above: Performed By: #### C DP, BMP ####[address] [address] Sodium 146 mmol/L High 135-144 [facility] Comment on above: Performed By: #### C DP, BMP ####[address] [address] Urea nitrogen 21 mg/dL Normal 8-23 [facility] Comment on above: Performed By: #### C DP, BMP ####[address] [address] BUN/CRE Ratio NOT REPORTED Normal 9-20 [facility] Comment on above: Performed By: #### C DP, BMP ####[address] [address] Staging: NOT REPORTED Normal [facility] Comment on above: Performed By: #### C DP, BMP ####[address] [address] CBC with Diffon 05-06-2018 Abs. Basophil 0.10 k/uL Normal 0.0-0.2 [facility] Comment on above: Result Comment: Perf ormed at [facility] [address] [place] [address] Performed By: #### C DP, BMP ####[address] [address] Abs.Neutrophil (Seg) 4.00 k/uL Normal 1.3-9.1 [facility] Comment on above: Performed By: #### C DP, BMP ####[address] [address] Basophils/100 WBC Auto (Bld) 1 % Normal 0-2 [facility] Comment on above: Performed By: #### C DP, BMP ####[address] [address] Eosinophils 0.20 10*3/uL Normal 0.0-0.4 [facility] Comment on above: Performed By: #### C DP, BMP ####[facility] [place] [address] Eosinophils/100 leukocytes 2 % Normal 0-4 [facility] Comment on above: Performed By: #### C DP, BMP ####[facility] [place] [address] Erythrocyte distribution width Auto Ratio (RBC) 13.9 % Normal 11.5-14.9 [facility] Comment on above: Performed By: #### C DP, BMP ####[facility] [place] [address] Erythrocytes (RBC) 4.68 10*6/uL Normal 4.0-5.2 [facility] Comment on above: Performed By: #### C DP, BMP ####[facility] [place] [address] Hematocrit (HCT) 41.8 % Normal 36-46 [facility] Comment on above: Performed By: #### C DP, BMP ####[facility] [place] [address] Hemoglobin mass conc (Bld) 13.7 g/dL Normal 12.0-16.0 [facility] Comment on above: Performed By: #### C DP, BMP ####[facility] [place] [address] Lymphocytes 3.20 10*3/uL Normal 1.0-4.8 [facility] Comment on above: Performed By: #### C DP, BMP ####[facility] [place] [address] Lymphocytes/100 leukocytes 39 % Normal 24-44 [facility] Comment on above: Performed By: #### C DP, BMP ####[facility] [place] [address] MCH 29.3 pg Normal 26-34 [facility] Comment on above: Performed By: #### C DP, BMP ####[facility] [place] [address] MCHC mass conc (RBC) 32.8 g/dL Normal 31-37 [facility] Comment on above: Performed By: #### C DP, BMP ####[address] [address] MCV 89.3 fL Normal 80-100 [facility] Comment on above: Performed By: #### C DP, BMP ####[address] [address] Monocytes 0.90 10*3/uL Normal 0.1-1.3 [facility] Comment on above: Performed By: #### C DP, BMP ####[address] [address] Monocytes/100 leukocytes 11 % High 1-7 [facility] Comment on above: Performed By: #### C DP, BMP ####[address] [address] Neutrophil (Seg) 47 % Normal 36-66 [facility] Comment on above: Performed By: #### C DP, BMP ####[address] [address] Platelet mean volume (PMV) 10.3 fL Normal 6.0-12.0 [facility] Comment on above: Performed By: #### C DP, BMP ####[address] [address] Platelets 232 10*3/uL Normal 150-450 [facility] Comment on above: Performed By: #### C DP, BMP ####[address] [address] WBC (Leukocytes) 8.4 10*3/uL Normal 3.5-11.0 [facility] Comment on above: Performed By: #### C DP, BMP ####[facility] [place] [address] Auto Diff Performed NOT REPORTED Normal [facility] Comment on above: Performed By: #### C DP, BMP ####[facility] [place] [address] Erythrocyte morphology NOT REPORTED Normal [facility] Comment on above: Performed By: #### C DP, BMP ####[address] [address] Erythrocytes (RBC) NOT REPORTED Normal [facility] Comment on above: Performed By: #### C DP, BMP ####[address] [address] Granulocytes/100 WBC (Bld) NOT REPORTED Normal 0.00-0.30 [facility] Comment on above: Performed By: #### C DP, BMP ####[address] [address] Immature granulocytes #/vol (Bld) NOT REPORTED Normal 0 [facility] Comment on above: Performed By: #### C DP, BMP ####[address] [address] Platelets NOT REPORTED Normal [facility] Comment on above: Performed By: #### C DP, BMP ####[address] [id number] WBC Morphology NOT REPORTED Normal [facility] Comment on above: Performed By: #### C DP, BMP ####[facility] [place], [place] [address] Vital Signs Date Time Vital Sign Value Performing Clinician Facility 12-26-2024 09:30-0500 Body height 160 cm Bia Cao MD Work Phone: [facility] 12-26-2024 09:30-0500 Body mass index (BMI) [Ratio] 26.57 kg/m2 Bia Cao MD Work Phone: [facility] 12-26-2024 09:30-0500 Body weight 68.04 kg Bia Cao MD Work Phone: [facility] 12-26-2024 09:30-0500 Diastolic blood pressure 74 mm[Hg] Bia Cao MD Work Phone: [facility] 12-26-2024 09:30-0500 Heart rate 85 /min Bia Cao MD Work Phone: [facility] 12-26-2024 09:30-0500 Respiratory rate 18 /min Bia Cao MD Work Phone: [facility] 12-26-2024 09:30-0500 SaO2% (BldA) [Mass fraction] 97 % Bia Cao MD Work Phone: [facility] 12-26-2024 09:30-0500 Systolic blood pressure 122 mm[Hg] Bia Cao MD Work Phone: [facility] 12-19-2024 13:03-0500 Body height 160 cm Maria C Kramer MD Work Phone: [facility] 12-19-2024 13:03-0500 Body mass index (BMI) [Ratio] 26.39 kg/m2 Maria C Kramer MD Work Phone: [facility] 12-19-2024 13:03-0500 Body weight 67.59 kg Maria C Kramer MD Work Phone: [facility] 12-19-2024 13:03-0500 Diastolic blood pressure 87 mm[Hg] Maria C Kramer MD Work Phone: [facility] 12-19-2024 13:03-0500 Heart rate 86 /min Maria C Kramer MD Work Phone: [facility] 12-19-2024 13:03-0500 Systolic blood pressure 162 mm[Hg] Maira C Kramer MD Work Phone: [facility] 12-08-2024 11:49-0500 Body height 160 cm Bia Cao MD Work Phone: [facility] 12-08-2024 11:49-0500 Body mass index (BMI) [Ratio] 26.18 kg/m2 Bia Cao MD Work Phone: [facility] 12-08-2024 11:49-0500 Body weight 67.04 kg Bia Cao MD Work Phone: [facility] 12-08-2024 11:49-0500 Diastolic blood pressure 76 mm[Hg] Bia Cao MD Work Phone: [facility] 12-08-2024 11:49-0500 Heart rate 79 /min Bia Cao MD Work Phone: [facility] 12-08-2024 11:49-0500 SaO2% (BldA) [Mass fraction] 93 % Bia Cao MD Work Phone: [facility] 12-08-2024 11:49-0500 Systolic blood pressure 128 mm[Hg] Bia Cao MD Work Phone: [facility] 12-06-2024 11:48-0500 Body mass index (BMI) [Ratio] 26.55 kg/m2 John Johnson MD Work Phone: [facility] 12-06-2024 11:48-0500 Body weight 67.99 kg John Johnson MD Work Phone: [facility] 12-06-2024 11:48-0500 Diastolic blood pressure 70 mm[Hg] John Johnson MD Work Phone: [facility] 12-06-2024 11:48-0500 Heart rate 87 /min John Johnson MD Work Phone: [facility] 12-06-2024 11:48-0500 Systolic blood pressure 117 mm[Hg] John Johnson MD Work Phone: [facility] 10-30-2024 13:39-0500 Body height 160 cm Santo Meghan DPM Work Phone: [facility] 10-30-2024 13:39-0500 Body mass index (BMI) [Ratio] 26.18 kg/m2 Santo Meghan DPM Work Phone: [facility] 10-30-2024 13:39-0500 Body weight 67.04 kg Santo Meghan DPM Work Phone: [facility] 09-26-2024 13:39-0500 Body mass index (BMI) [Ratio] 26.17 kg/m2 Rose Velasquez APRN.CLINICAL RESOURCE DIRECTOR Work Phone: [facility] 09-26-2024 13:39-0500 Body weight 67 kg Rose Velasquez APRN.CLINICAL RESOURCE DIRECTOR Work Phone: [facility] 09-26-2024 13:39-0500 Diastolic blood pressure 81 mm[Hg] Rose Velasquez APRN.CLINICAL RESOURCE DIRECTOR Work Phone: [facility] 09-26-2024 13:39-0500 Heart rate 91 /min Rose Velasquez FURNACE UNLOADER.CLINICAL RESOURCE DIRECTOR Work Phone: [facility] 09-26-2024 13:39-0500 SaO2% (BldA) [Mass fraction] 96 % Rose Velasquez APRN.CLINICAL RESOURCE DIRECTOR Work Phone: [facility] 09-26-2024 13:39-0500 Systolic blood pressure 143 mm[Hg] Rose Velasquez APRN.CLINICAL RESOURCE DIRECTOR Work Phone: [facility] 08-29-2024 13:53-0400 Body height 160 cm Maria C Kramer MD Work Phone: [facility] 08-29-2024 13:53-0400 Body mass index (BMI) [Ratio] 26.22 kg/m2 Maria C Kramer MD Work Phone: [facility] 08-29-2024 13:53-0400 Body weight 67.13 kg Maria C Kramer MD Work Phone: [facility] 08-29-2024 13:53-0400 Diastolic blood pressure 68 mm[Hg] Maria C Kramer MD Work Phone: [facility] 08-29-2024 13:53-0400 Heart rate 87 /min Maria C Kramer MD Work Phone: [facility] 08-29-2024 13:53-0400 Systolic blood pressure 125 mm[Hg] Maria C Kramer MD Work Phone: [facility] 08-14-2024 15:57-0400 Body height 160 cm Bia Cao MD Work Phone: [facility] 08-14-2024 15:57-0400 Body mass index (BMI) [Ratio] 26.18 kg/m2 Bia Cao MD Work Phone: [facility] 08-14-2024 15:57-0400 Body weight 67.04 kg Bia Cao MD Work Phone: [facility] 08-14-2024 15:57-0400 Diastolic blood pressure 88 mm[Hg] Bia Cao MD Work Phone: [facility] 08-14-2024 15:57-0400 Heart rate 88 /min Bia Cao MD Work Phone: [facility] 08-14-2024 15:57-0400 SaO2% (BldA) [Mass fraction] 95 % Bia Cao MD Work Phone: [facility] 08-14-2024 15:57-0400 Systolic blood pressure 148 mm[Hg] Bia Cao MD Work Phone: [facility] 08-08-2024 11:40-0400 Body height 160 cm Bia Cao MD Work Phone: [facility] 08-08-2024 11:40-0400 Body mass index (BMI) [Ratio] 26.43 kg/m2 Bia Cao MD Work Phone: [facility] 08-08-2024 11:40-0400 Body weight 67.68 kg Bia Cao MD Work Phone: [facility] 08-08-2024 11:40-0400 Diastolic blood pressure 84 mm[Hg] Bia Cao MD Work Phone: [facility] 08-08-2024 11:40-0400 Heart rate 77 /min Bia Cao MD Work Phone: [facility] 08-08-2024 11:40-0400 Respiratory rate 20 /min Bia Cao MD Work Phone: [facility] 08-08-2024 11:40-0400 SaO2% (BldA) [Mass fraction] 97 % Bia Cao MD Work Phone: [facility] 08-08-2024 11:40-0400 Systolic blood pressure 136 mm[Hg] Bia Cao MD Work Phone: [facility] 07-10-2024 15:39-0400 Body height 160 cm Bia Cao MD Work Phone: [facility] 07-10-2024 15:39-0400 Body mass index (BMI) [Ratio] 27.1 kg/m2 Bia Cao MD Work Phone: [facility] 07-10-2024 15:39-0400 Body weight 69.4 kg Bia Cao MD Work Phone: [facility] 07-10-2024 15:39-0400 Diastolic blood pressure 72 mm[Hg] Bia Cao MD Work Phone: [facility] 07-10-2024 15:39-0400 Heart rate 90 /min Bia Cao MD Work Phone: [facility] 07-10-2024 15:39-0400 Respiratory rate 18 /min Bia Cao MD Work Phone: [facility] 07-10-2024 15:39-0400 SaO2% (BldA) [Mass fraction] 97 % Bia Cao MD Work Phone: [facility] 07-10-2024 15:39-0400 Systolic blood pressure 126 mm[Hg] Bia Cao MD Work Phone: [facility] 04-04-2024 11:29-0400 Body height 160 cm Mandi Hoover MD Work Phone: [facility] 04-04-2024 11:29-0400 Body mass index (BMI) [Ratio] 27.18 kg/m2 Mandi Hoover MD Work Phone: [facility] 04-04-2024 11:29-0400 Body temperature 97.7 [degF] Mandi Hoover MD Work Phone: [facility] 04-04-2024 11:29-0400 Body weight 69.6 kg Mandi Hoover MD Work Phone: [facility] 04-04-2024 11:29-0400 Diastolic blood pressure 65 mm[Hg] Mandi Hoover MD Work Phone: [facility] 04-04-2024 11:29-0400 Heart rate 80 /min Mandi Hoover MD Work Phone: [facility] 04-04-2024 11:29-0400 Respiratory rate 18 /min Mandi Hoover MD Work Phone: [facility] 04-04-2024 11:29-0400 SaO2% (BldA) [Mass fraction] 96 % Mandi Hoover MD Work Phone: [facility] 04-04-2024 11:29-0400 Systolic blood pressure 105 mm[Hg] Mandi Hoover MD Work Phone: [facility] 02-24-2024 12:02-0400 Body height 160 cm Ryan Dallas MD Work Phone: [facility] 02-24-2024 12:02-0400 Body mass index (BMI) [Ratio] 27.21 kg/m2 Ryan Dallas MD Work Phone: [facility] 02-24-2024 12:02-0400 Body weight 69.67 kg Ryan Dallas MD Work Phone: [facility] 02-24-2024 12:02-0400 Diastolic blood pressure 76 mm[Hg] Ryan Dallas MD Work Phone: [facility] 02-24-2024 12:02-0400 Heart rate 78 /min Ryan Dallas MD Work Phone: [facility] 02-24-2024 12:02-0400 Respiratory rate 16 /min Ryan Dallas MD Work Phone: [facility] 02-24-2024 12:02-0400 SaO2% (BldA) [Mass fraction] 94 % Ryan Dallas MD Work Phone: [facility] 02-24-2024 12:02-0400 Systolic blood pressure 147 mm[Hg] Ryan Dallas MD Work Phone: [facility] 01-07-2024 10:29-0500 Body height 160 cm Yoanna Dorsey FURNACE UNLOADER-CLINICAL RESOURCE DIRECTOR Work Phone: [facility] 01-07-2024 10:29-0500 Body mass index (BMI) [Ratio] 27.63 kg/m2 Yoanna Dorsey FURNACE UNLOADER-CLINICAL RESOURCE DIRECTOR Work Phone: [facility] 01-07-2024 10:29-0500 Body weight 70.76 kg Yoanna Dorsey APRN-CLINICAL RESOURCE DIRECTOR Work Phone: [facility] 01-07-2024 10:29-0500 Diastolic blood pressure 78 mm[Hg] Yoanna Dorsey FURNACE UNLOADER-CLINICAL RESOURCE DIRECTOR Work Phone: [facility] 01-07-2024 10:29-0500 Heart rate 80 /min Yoanna Dorsey FURNACE UNLOADER-CLINICAL RESOURCE DIRECTOR Work Phone: [facility] 01-07-2024 10:29-0500 Systolic blood pressure 124 mm[Hg] Yoanna Dorsey FURNACE UNLOADER-CLINICAL RESOURCE DIRECTOR Work Phone: [facility] Encounters Encounter Date Encounter Type Care Provider Facility Start: 12-26-2024 End: 12-26-2024 Bamboo flowsheet Bia Cao MD Work Phone: [facility] Start: 12-26-2024 End: 12-26-2024 Bamboo flowsheet Bia Cao MD Work Phone: [facility] Start: 12-26-2024 End: 12-26-2024 ambulatory BIA CAO Not Available Start: 12-26-2024 End: 12-26-2024 Office outpatient visit 25 minutes Bia Cao MD Work Phone: [facility] Comment on above: Hoarse (Primary Dx); Primary insomnia; Major depressive disorder, single episode, in full remission ([facility]); Fall, subsequent encounter; Gastroesophageal reflux disease without esophagitis Start: 12-25-2024 End: 12-25-2024 Telephone encounter Bia Cao MD Work Phone: [facility] Start: 12-23-2024 End: 12-23-2024 Emergency department patient visit BIA CAO [facility] Start: 12-22-2024 End: 12-22-2024 Orders Only John Johnson MD Work Phone: [facility], A Department of [facility] Comment on above: Osteoporosis, unspec ified osteoporosis type, unspecified pathological fracture presence (Primary Dx) Start: 12-19-2024 End: 12-19-2024 Office outpatient visit 15 minutes Maria C Kramer MD Work Phone: [facility] Comment on above: Urge incontinence (P rimary Dx) Start: 12-19-2024 End: 12-19-2024 ambulatory MARIA C Jackson DEBORAH [facility] Start: 12-18-2024 End: 12-18-2024 ambulatory Adelfo Hansen MD Facility:[facility] Start: 12-12-2024 End: 12-12-2024 Refill Bia Cao [...] 25 minutes John Johnson MD Work Phone: [facility], A Department of [facility] Comment on above: Hypothyroidism, unsp ecified type (Primary Dx); Age-related osteoporosis without current pathological fracture; Vitamin D deficiency Start: 12-06-2024 End: 12-06-2024 Orders Only Gladys Zambrano LPN [facility], A Department of [facility] Comment on above: Osteoporosis, unspec ified osteoporosis type, unspecified pathological fracture presence (Primary Dx) Start: 11-29-2024 End: 11-29-2024 Refill Bia Cao MD Work Phone: [facility] Comment on above: Anemia, unspecified type (Primary Dx) Start: 11-28-2024 End: 11-28-2024 ambulatory ANDRIUS GIEDRAITIS [facility] Start: 11-20-2024 End: 11-20-2024 ambulatory Adelfo Hansen MD Facility:[facility] Start: 11-06-2024 End: 11-06-2024 Refill Bia Cao MD Work Phone: [facility] Comment on above: Hyperlipidemia, unsp ecified hyperlipidemia type (CMS/HCC) Start: 10-30-2024 End: 10-30-2024 Bamboo flowsheet Santo Christianson DPM Work Phone: [facility] Start: 10-30-2024 End: 10-30-2024 Bamboo flowsheet Santo Christianson DPM Work Phone: [facility] Start: 10-30-2024 End: 10-30-2024 Patient encounter procedure Santo Christianson DPM Work Phone: [facility] Comment on above: Dermatophytosis of n ail (Primary Dx); Dystrophic nail; Pain around toenail, right foot; Pain around toenail, left foot Start: 10-30-2024 End: 10-30-2024 ambulatory SANTO CHRISTIANSON Not Available Start: 10-04-2024 End: 10-06-2024 Telephone encounter Rose Velasquez APRN.CLINICAL RESOURCE DIRECTOR Work Phone: [facility] Comment on above: Patient Question Start: 09-26-2024 End: 09-26-2024 ambulatory ROSE VELSAQUEZ Facility:[facility] Start: 09-26-2024 End: 09-26-2024 Patient encounter procedure Rose Velasquez APRN.CLINICAL RESOURCE DIRECTOR Work Phone: Neurosurgery Comment on above: 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); Dizziness Start: 09-26-2024 End: 09-26-2024 ambulatory MANDI HOOVER Facility:[facility] Start: 09-26-2024 End: 09-26-2024 Subsequent hospital visit by physician Mri [facility] (Lg Bore/1.5t) Radiology MRI Comment on above: 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] Start: 09-04-2024 End: 09-04-2024 ambulatory Adelfo Hansen MD Facility:[facility] Start: 08-29-2024 End: 08-29-2024 Office consultation new/estab patient 40 min Maria C Kramer MD Work Phone: [facility] Comment on above: Urge incontinence Start: 08-29-2024 End: 08-29-2024 ambulatory MARIA CALOK KRAMER [facility] Start: 08-22-2024 End: 08-24-2024 Refill Linda Ochoa [facility] Start: 08-21-2024 End: 08-21-2024 ambulatory Andhector Gillitis Facility:[facility] Start: 08-14-2024 End: 08-14-2024 Office outpatient visit [...] 07-17-2024 End: 07-17-2024 ambulatory Adelfo Hansen MD Facility:[facility] Start: 07-14-2024 End: 07-14-2024 Orders Only Bia Cao MD Work Phone: [facility] Comment on above: Acute cystitis witho ut hematuria (Primary Dx) Start: 07-13-2024 End: 07-13-2024 ambulatory [facility] Start: 07-11-2024 End: 07-11-2024 Orders [...] [facility] Start: 07-10-2024 End: 07-10-2024 ambulatory [facility] Start: 07-03-2024 End: 07-03-2024 ambulatory TRACI FLORES Not Available Start: 06-14-2024 End: 06-14-2024 [facility] Start: 05-09-2024 Orders Only Mandi gambino MD Work Phone: [facility] Comment on above: Intracranial meningi brandon (HCC) (Primary Dx); Benign neoplasm of meninges (HCC) Start: 05-04-2024 End: 05-04-2024 ambulatory BIA CAO Not Available Start: 05-01-2024 End: 05-01-2024 ambulatory Adelfo Hansen MD Facility: [facility] Start: 04-05-2024 End: 04-05-2024 ambulatory BIA CAO Not Available Start: 04-04-2024 End: 04-04-2024 ambulatory MANDI HOOVER Facility:[facility] Start: 04-04-2024 End: 04-04-2024 Patient encounter procedure Mandi Hoover MD Work Phone: [facility] Comment on above: Intracranial meningi brandon (HCC) (Primary Dx); Sensorineural hearing loss (SNHL) of right ear, unspecified hearing status on contralateral side; Dizziness Start: 04-03-2024 End: 04-03-2024 ambulatory BIA CAO Not Available Start: 03-24-2024 Telephone encounter Neurology Provid er Neurology Comment on above: Received Outside [facility] Records (External referral to Neurological [place]/); triage; Nurse Triage Call; Appointment Start: 03-24-2024 End: 03-24-2024 ambulatory ILEANA CORTES [facility] Start: 03-16-2024 ambulatory BIA CAO [facility] Start: 03-13-2024 End: 03-13-2024 ambulatory Adelfo [facility] MD [facility] Start: 03-10-2024 End: 03-10-2024 ambulatory YOANNA WILLIAN [facility] Start: 03-02-2024 End: 03-02-2024 ambulatory BIA CAO Not Available Start: 02-24-2024 End: 02-24-2024 Office outpatient visit 15 minutes Ryan Dallas MD Work Phone: [facility] Comment on above: Essential hypertensi on (Primary Dx); LVH (left ventricular hypertrophy); Mixed hyperlipidemia; Hypotension due to drugs Start: 02-24-2024 End: 02-24-2024 ambulatory RYAN DALLAS [facility] Start: 02-22-2024 End: 02-22-2024 ambulatory BIA CAO Not Available Start: 02-15-2024 End: 02-15-2024 ambulatory BIA CAO Not Available Start: 02-11-2024 End: 02-12-2024 Emergency department patient visit JUAN TAMEZ [facility] Start: 02-10-2024 Orders Only Ryan aquino MD Work Phone: [facility] Comment on above: Essential hypertensi on Start: 02-09-2024 Refill Doris Hawkins RN [facility] Start: 02-07-2024 End: 02-07-2024 ambulatory Adelfo Hansen MD [facility] Start: 01-18-2024 End: 01-18-2024 ambulatory RIA SNYDER Not Available Start: 01-12-2024 End: 01-12-2024 ambulatory RIA SNYDER Not Available Start: 01-11-2024 End: 01-11-2024 ambulatory YOANNA DORSEY [facility] Start: 01-10-2024 End: 01-10-2024 ambulatory Adelfo Hansen MD Facility: [facility] Start: 01-07-2024 End: 01-07-2024 Office outpatient visit 25 minutes Yoanna MAS Work Phone: [facility] Comment on above: Migraine without aur a and without status migrainosus, not intractable (Primary Dx); Bilateral occipital neuralgia; Essential tremor; Cervicalgia; Trapezius muscle spasm; Balance problem; Psychophysiological insomnia; Polyneuropathy; Prediabetes; Essential (primary) hypertension; Abnormal level of blood mineral; Decreased hearing of both ears Start: 01-07-2024 End: 01-07-2024 ambulatory [facility] Start: 01-06-2024 End: 01-06-2024 ambulatory Ria Snyder DIRECTOR OF CONSERVATION Work Phone: [facility] Comment on above: General weakness (Pr imary Dx); History of falling Start: 01-04-2024 Bamboo flowsheet Ria Wrig ht DIRECTOR OF CONSERVATION Work Phone: [facility] Start: 01-04-2024 Bamboo flowsheet Ria Wrig ht DIRECTOR OF CONSERVATION Work Phone: [facility] Start: 01-04-2024 End: 01-04-2024 ambulatory Ria Snyder DIRECTOR OF CONSERVATION Work Phone: [facility] Comment on above: General weakness (Pr imary Dx); History of falling Start: 01-03-2024 Refill Bia Gaxiola Work Phone: [facility] Comment on above: Mixed hyperlipidemia (CMS/HCC) (Primary Dx); Stress incontinence of urine Start: 12-31-2023 End: 12-31-2023 ambulatory RIA SNYDER Not Available Start: 12-30-2023 Chart abstracting Jonny soto PT Work Phone: [facility] Start: 12-28-2023 End: 12-28-2023 ambulatory RIA SNYDER Not Available Start: 12-23-2023 End: 12-23-2023 ambulatory Ria Snyder DIRECTOR OF CONSERVATION Work Phone: [facility] Comment on above: General weakness (Pr imary Dx); History of falling Start: 12-13-2023 Refill John aggarwal MD Work Phone: [facility] Start: 10-12-2022 End: 10-12-2022 ambulatory [facility] Start: 09-28-2022 End: 09-28-2022 ambulatory [facility] Start: 05-16-2018 End: 05-16-2018 Ambulatory AUDREY HORN [facility] Start: 05-06-2018 End: 05-11-2018 Ambulatory LENNY PEDRAZA [facility] Start: 05-02-2018 Patient encounter status Antonietta Johnson MD Work Phone: [facility] [facility] Work Phone: Procedures Date Procedure Procedure [...] Start: 01-07-2024 Adult depression scr eening assessment Yoannaanna MAS Work Phone: Start: 04-23-2023 Adult depression scr [...] Author Start: 02-10-2027 Diabetes Screening Diabetes Screening [facility] Start: 12-19-2025 Tobacco Screening Tobacco Screening [facility] Start: 12-06-2025 Tobacco Screening Tobacco Screening [facility] Start: 08-29-2025 Adult BMI Screening Adult BMI Screening [facility] Start: 08-29-2025 Tobacco Screening Tobacco Screening [facility] Start: 07-13-2025 Adult BMI Screening Adult BMI Screening [facility] Start: 07-13-2025 Depression Screening Depression Screening [facility] Start: 07-13-2025 Tobacco Screening Tobacco Screening [facility] Start: 05-21-2025 Influenza vaccination Influenza Vaccine (#1) [facility] Comment on above: Postponed from 07/23/2024 (Other Medical Reasons) Start: 04-18-2025 End: 04-18-2025 Patient encounter procedure 04/18/2025 1:30 PM EDT Off ice Visit [facility], A Department of [facility] [address] [place] [id number] John Johnson MD [address] [place] [address] [facility] Department of [facility] Start: 04-09-2025 End: 04-09-2025 Patient encounter procedure 04/09/2025 1:40 PM EDT Off ice Visit [facility] [address] [place] [phone] Bia Cao MD [address] [place] [address] [facility] Start: 03-10-2025 Fall Risk Screening Fall Risk Screening [facility] Start: 02-10-2025 Adult BMI Screening Adult BMI Screening [facility] Start: 02-06-2025 End: 02-06-2025 Patient encounter procedure 02/06/2025 9:20 AM EDT Off ice Visit [facility] [address] [place] [id number] Bia Cao MD [address] [place] [address] [facility] Start: 01-18-2025 End: 01-18-2025 Patient encounter procedure 01/18/2025 11:00 AM EST Office Visit [facility] [address] [place] [address] Yoanna Dorsey, FURNACE UNLOADER-CLINICAL RESOURCE DIRECTOR [address] [place] [address] [facility] Start: 01-17-2025 End: 01-17-2025 Patient encounter procedure 01/17/2025 12:15 PM EST Office Visit [facility] [address] [place] [address] [address] [facility] [place] [address] Liss Jauregui I, PA [address] [place] [address] [facility] Start: 01-07-2025 Adult BMI Screening Adult BMI Screening [facility] Start: 01-07-2025 Depression Screening Depression Screening [facility] Start: 01-07-2025 Tobacco Screening Tobacco Screening [facility] Start: 12-26-2024 End: 12-26-2024 Patient encounter procedure 12/26/2024 9:20 AM EST Off ice Visit [facility] [address] [place] [phone] Bia Cao MD [address] [place] [address] [facility] Start: 12-19-2024 End: 12-19-2024 Patient encounter procedure 12/19/2024 12:45 PM EST Office Visit [facility] [address] [place] [phone] Maria C Kramer MD [address] [place] [address] [facility] Start: 12-08-2024 End: 12-08-2024 Patient encounter procedure 12/08/2024 11:40 AM EST Office Visit [facility] [address] [place] [phone] Bia Cao MD [address] [place] [address] [facility] Start: 12-06-2024 Medicare Annual Wellness (AWV) Medicare Annual Wellness (AWV) [facility] Start: 12-06-2024 End: 12-06-2024 Patient encounter procedure 12/06/2024 11:45 AM EST Office Visit [facility] [address] [facility] [address] [place] [address] John Johnson MD [address] [facility], [address] [place] [address] [facility] Start: 11-29-2024 Adult BMI Screening Adult BMI Screening [facility] Start: 11-29-2024 Tobacco Screening Tobacco Screening [facility] Start: 10-30-2024 End: 10-30-2024 Patient encounter procedure 10/30/2024 1:45 PM EST Off ice Visit [facility] [address] [place] [phone] Santo Christianson DPM [address] [place] [address] Arrived [facility] Comment on above: Arrived Start: 10-01-2024 Fall Risk Screening Fall Risk Screening [facility] Start: 08-29-2024 End: 08-29-2024 Patient encounter procedure 08/29/2024 1:30 PM EDT Off ice Visit [facility] [address] [place] [address] [place] [address] [phone] Maria C Kramer MD [address] [place] [address] [facility] Start: 08-28-2024 End: 06-08-2025 MR Brain WO and W contrast IV MRI BRAIN WO/W IVCON Radiology Routine Benign neoplasm of meninges (HCC) Expected: 08/28/2024 (Approximate), Expires: 06/08/2025 [facility] Work Phone: Comment on above: Expected: 08/28/2024 (Approximate), Expi res: 06/08/2025 Start: 08-14-2024 End: 08-14-2024 Patient encounter procedure 08/14/2024 4:00 PM EDT Off ice Visit [facility] [address] [place] [phone] Bia Cao MD [address] [place], [place] [phone] Arrived [facility] Comment on above: Arrived Start: 08-08-2024 End: 08-08-2024 Patient encounter procedure 08/08/2024 11:40 AM EDT Office Visit [facility] [address] [place] [phone] Bia Cao MD [address] [facility] [place] [address] Arrived [facility] Comment on above: Arrived Start: 08-04-2024 End: 08-04-2024 Patient encounter procedure 08/04/2024 11:00 AM EDT Office Visit [facility] [address] [facility] [place] [phone] Bia Cao MD [address] [facility] [place] [address] [facility] Start: 07-23-2024 COVID-19 Vaccine ( season) COVID-19 Vaccine ( season) [facility] Start: 07-23-2024 Covid-19 Vaccine ( season) Covid-19 Vaccine ( season) [facility] Start: 07-23-2024 Influenza vaccination [facility] Start: 07-10-2024 End: 07-10-2025 Bacteria identified in Urine by Culture Urine culture (clean catch) Microbiology Routine Dysuria Expected: 07/10/2024 (Approximate), Expires: 07/10/2025 [facility] Work Phone: Comment on above: Expected: 07/10/2024 (Approximate), Expi res: 07/10/2025 Start: 07-10-2024 End: 07-10-2025 Urinalysis complete panel - Urine Urinalysis with reflex microscopic (clean catch) Lab Routine Dysuria Expected: 07/10/2024 (Approximate), Expires: 07/10/2025 [facility] Comment on above: Expected: 07/10/2024 (Approximate), Expi res: 07/10/2025 Start: 07-10-2024 End: 07-10-2024 Patient encounter procedure [facility] Comment on above: Arrived Start: 05-21-2024 Influenza vaccination Influenza Vaccine (#1) [facility] Comment on above: Postponed from 07/23/2023 (Patient Refus ed) Start: 04-23-2024 Depression Screening Depression Screening [facility] Start: 04-11-2024 End: 04-11-2024 Patient encounter procedure 04/11/2024 2:45 PM EDT Off ice Visit [facility] [address] [place] [address] John Johnson MD [address] [place] [address] [facility] Start: 04-04-2024 End: 04-04-2024 Patient encounter procedure 04/04/2024 10:30 AM EDT Office Visit [facility] [place] [address] [place] [address] Mandi Hoover MD [address] [place] [address] Time Frame: First available [facility] [place] Comment on above: Time Frame: First available Start: 04-03-2024 End: 04-03-2024 Patient encounter procedure 04/03/2024 11:20 AM EDT Office Visit [facility] [address] [place] [address] Bia Cao MD [address] [place], [place] [phone] [facility] Start: 02-09-2024 End: 02-09-2024 Patient encounter procedure 02/09/2024 11:00 AM EDT Office Visit [facility] [address] [facility] [address] [place] [phone] Ryan Dallas MD [address] [facility] [place] [address] [facility] Start: 01-20-2024 End: 01-20-2024 ambulatory 01/20/2024 11:00 AM EST Treatment [facility] [address] [place] [phone] Jonny Salazar, PT [address] [place] [address] [facility] Start: 01-18-2024 End: 01-18-2024 ambulatory 01/18/2024 11:30 AM EST Treatment [facility] [address] [place] [phone] Ria Snyder, DIRECTOR OF CONSERVATION [address] [place] [address] [facility] Start: 01-14-2024 End: 01-14-2024 ambulatory 01/14/2024 1:00 PM EST Treatment [facility] [address] [place] [phone] Ria Snyder, DIRECTOR OF CONSERVATION [address] [place] [address] [facility] Start: 01-12-2024 End: 01-12-2024 ambulatory 01/12/2024 12:30 PM EST Treatment [facility] [address] [place] [phone] Ria Snyder, DIRECTOR OF CONSERVATION [address] [place] [address] [facility] Start: 01-11-2024 End: 01-11-2024 Patient encounter procedure 01/11/2024 11:00 AM EST Office Visit [facility] [address] [place] [address] Yoanna Dorsey, FURNACE [employer]ER[employer]ICAL RESOURCE DIRECTOR [address] [place] [address] [facility] Start: 01-06-2024 End: 01-06-2024 ambulatory [facility] Start: 01-04-2024 End: 01-04-2024 ambulatory 01/04/2024 11:30 AM EST Treatment [facility] [address] [place] [phone] Ria Snyder, DIRECTOR OF CONSERVATION [address] [place] [address] [facility] Start: 12-31-2023 End: 12-31-2023 ambulatory 12/31/2023 10:00 AM EST Treatment [facility] [address] [place] [phone] Ria Snyder, DIRECTOR OF CONSERVATION [address] [place] [address] [facility] Start: 12-30-2023 End: 12-30-2023 ambulatory 12/30/2023 11:30 AM EST Treatment [facility] [address] [place] [phone] Jonny Salazar, PT [address] [place] [address] [facility] Start: 12-28-2023 End: 12-28-2023 ambulatory 12/28/2023 11:30 AM EST Treatment [facility] [address] [place] [phone] Ria Snyder, DIRECTOR OF CONSERVATION [address] [place] [address] [facility] Start: 11-22-2023 Advance Directive Discussion Advance Directive Discussion [facility] Start: 11-22-2023 Behavioral Health Screening Behavioral Health Screening [facility] Start: 07-23-2023 COVID-19 Vaccine ( season) COVID-19 Vaccine ( season) [facility] Start: 07-23-2023 Influenza vaccination Influenza Vaccine [facility] Start: 08-21-2021 DTaP,Tdap and Td Vaccines (2 - Td or Tdap) DTaP,Tdap and Td Vaccines (2 - Td or Tdap) [facility] Start: 2020 RSV Vaccine (1 - 1-dose 75+ series) RSV Vaccine (1 - 1-dose 75+ series) [facility] Start: 08-22-2011 Urine microalbumin profile DTaP,Tdap,Td Vaccine (1 - Tdap) [facility] Start: 01-17-2010 Administration of varicella zoster vaccine Zoster (Shingles) Vaccine (2 of 3) [facility] Start: 2005 RSV Vaccine (1 - 1-dose 60+ series) RSV Vaccine (1 - 1-dose 60+ series) [facility] Start: 1995 Shingrix Vaccine (1 of 2) Shingrix Vaccine (1 of 2) [facility] Start: 1963 Adult BMI Follow Up Plan Adult BMI Follow Up Plan [facility] Start: 1963 Anxiety Screening Anxiety Screening [facility] Start: 1963 Depression Screening Depression Screening [facility] Start: 1963 Hepatitis C screening Hepatitis C Screening [facility] Start: 1945 Medicare Annual Wellness Visit Medicare Annual Wellness Visit [facility] Bacteria identified in Urine by Culture Urine culture (clean catch) Microbiology Routine Urinary frequency 12/08/2024 12:28 PM EST [facility] [employer] Work Phone: End: 12-22-2025 Calcium [Mass/volume] in Serum or Plasma Calcium Lab Routine Osteoporosis, unspecified osteoporosis type, unspecified pathological fracture presence every 3 months for 4 Occurrences starting 12/22/2024 until 12/22/2025 [facility] Work Phone: Comment on above: every 3 months for 4 Occurrences startin g 12/22/2024 until 12/22/2025 End: 01-07-2025 CBC W Auto Differential panel - Blood CBC auto differential Lab Routine Essential tremor Balance problem Polyneuropathy 1 Occurrences starting 01/07/2024 until 01/07/2025 [facility] Comment on above: 1 Occurrences starting 01/07/2024 until 01/07/2025 End: 01-07-2025 Cyanocobalamin vitamin b-12 Vitamin B12 Lab Routine Balance problem Polyneuropathy 1 Occurrences starting 01/07/2024 until 01/07/2025 [facility] Comment on above: 1 Occurrences starting 01/07/2024 until 01/07/2025 End: 01-07-2025 Ferritin [Mass/volume] in Serum or Plasma Ferritin Lab Routine Polyneuropathy Abnormal level of blood mineral 1 Occurrences starting 01/07/2024 until 01/07/2025 [facility] Comment on above: 1 Occurrences starting 01/07/2024 until 01/07/2025 End: 01-07-2025 Folate [Mass/volume] in Serum or Plasma Folate Serum Lab Routine Balance problem Polyneuropathy 1 Occurrences starting 01/07/2024 until 01/07/2025 [facility] Comment on above: 1 Occurrences starting 01/07/2024 until 01/07/2025 End: 01-07-2025 Hemoglobin A1c/Hemoglobin.total in Blood Hemoglobin A1c Lab Routine Balance problem Polyneuropathy Prediabetes 1 Occurrences starting 01/07/2024 until 01/07/2025 [facility] Comment on above: 1 Occurrences starting 01/07/2024 until 01/07/2025 End: 01-07-2025 Homocysteine total Homocysteine total Lab Routine Balance problem Polyneuropathy Essential (primary) hypertension 1 Occurrences starting 01/07/2024 until 01/07/2025 [facility] Comment on above: 1 Occurrences starting 01/07/2024 until 01/07/2025 End: 01-07-2025 Immunoelectrophoresis for Therapy Monitoring Immunoelectrophoresis for Therapy Monitoring Lab Routine Balance problem Polyneuropathy 1 Occurrences starting 01/07/2024 until 01/07/2025 [facility] Comment on above: 1 Occurrences starting 01/07/2024 until 01/07/2025 End: 01-07-2025 Iron and TIBC Iron and TIBC Lab Routine Essential tremor Balance problem Polyneuropathy Abnormal level of blood mineral 1 Occurrences starting 01/07/2024 until 01/07/2025 [facility] 1 Occurrences starting 01/07/2024 until 01/07/2025 End: 01-07-2025 Methylenetetrahydrofolate reductase Methylenetetrahydrofolate reductase Lab Routine Balance problem Polyneuropathy 1 Occurrences starting 01/07/2024 until 01/07/2025 [facility] on above: 1 Occurrences starting 01/07/2024 until 01/07/2025 End: 01-07-2025 Methylmalonic acid screen Methylmalonic acid screen La b Routine Balance problem Polyneuropathy 1 Occurrences starting 01/07/2024 until 01/07/2025 [facility] [employer] Work Phone: Comment on above: 1 Occurrences starting 01/07/2024 until 01/07/2025 End: 10-26-2025 MR Brain WO and W contrast IV MRI BRAIN WO/W IVCON Radiology Routine Benign neoplasm of meninges (HCC) 1 Occurrences starting 09/26/2024 until 10/26/2025 [facility] Work Phone: Comment on above: 1 Occurrences [...] Immunization Date Immunization Notes Care Provider [facility] 10-26-2024 RSV, recombinant, protein subunit RSVpreF, adjuvant reconstitu, 120mcg/0.5mL, PF (Arexvy) Santo Christianson DPM Work Phone: [facility] 03-12-2021 COVID-19, mRNA, LNP- S, PF, 100mcg/0.5mL Dose John Johnson MD Work Phone: [facility] 03-11-2021 Moderna SARS-CoV-2 Vaccination Riazechariah Snyder DIRECTOR OF CONSERVATION Work Phone: [facility] 02-12-2021 COVID-19, mRNA, LNP- S, PF, 100mcg/0.5mL Dose John Johnson MD Work Phone: [facility] 02-11-2021 Moderna SARS-CoV-2 Vaccination Ria Snyder DIRECTOR OF CONSERVATION Work Phone: [facility] 11-12-2020 pneumococcal conjuga te vaccine, 13 valent [...] injectable, preservative free Ria Snyder DIRECTOR OF CONSERVATION Work Phone: [facility] 08-13-2015 pneumococcal polysaccharide vaccine, 23 valent Ria Snyder DIRECTOR OF CONSERVATION Work Phone: [facility] 08-21-2011 tetanus and diphther ia toxoids, adsorbed, preservative free, for adult use (5 Lf of tetanus toxoid and 2 Lf of diphtheria toxoid) John Johnson MD Work Phone: [facility] [employer] [facility] 11-22-2009 zoster vaccine, live Greeulae aakash Snyder DIRECTOR OF CONSERVATION Work Phone: [facility] 11-22-2009 zoster vaccine, unspecified formulation John Johnson MD Work Phone: [facility] Payers Date Payer Category Payer Medicaid [employer] MEDICARE A DVANTAGE [id number] 2022 Private Health Insurance 2021 Medicare [id number] 2021 Medicare HMO [employer] MEDICARE [id number] 2021 Medicare [id number] 2012 Medicare [id number] 1945 Unknown [id number] 2.16.840.1.132551.3.579.2. 175 -194 Unknown [id number] 2.16.840.1.782277.3.579.2. 175 1945 Unknown [id number] 2.16.840.1.559605.3.579.2. 1286 1945 Unknown [id number] 2.16.840.1.166489.3.579.2. 1286 194 Unknown [id number] 2.16.840.1.876510.3.579.2. 1286 194 Unknown [id number] 2.840.1.858820.3.579.2. 1286 1945 Unknown [id number] 2.840.1.794050.3.579.2. 1286 1945 Unknown [id number] 2.840.1.645871.3.579.2. 1286 194 Unknown [id number] 2.840.1.935315.3.579.2. 1286 194 Unknown [id number] 2.840.1.701197.3.579.2. 1286 1945 Unknown [id number] 2.840.1.990071.3.579.2. 1286 194 Unknown [id number] 2.840.1.979561.3.579.2. 1286 1945 Unknown [id number] 2.840.1.218530.3.579.2. 196 1945 Unknown [id number] 2.840.1.431782.3.579.2. 196 1945 Unknown [id number] 2.16840.1.201841.3.579.2. 196 1945 Unknown [id number] 2.840.1.751753.3.579.2. 196 1945 Unknown [id number] 2.16.840.1.446754.3.579.2. 1945 Unknown [id number] 2.16.840.1.345098.3.579.2. 1945 Unknown [id number] 2.16.840.1.994495.3.579.2. 1945 Unknown [id number] 2.16.840.1.258285.3.579.2. 1945 Unknown [id number] 2.16.840.1.105756.3.579.2. 1945 Unknown [id number] 2.840.1.952955.3.579.2. 1285 1945 Unknown [id number] 2.840.1.255058.3.579.2. 1285 1945 Unknown [id number] 2.840.1.046695.3.579.2. 1285 1945 Unknown [id number] 2.16.840.1.567144.3.579.2. 1285 1945 Unknown [id number] 2.16840.1.017637.3.579.2. 1285 1945 Unknown [id number] 2.840.1.000012.3.579.2. 1285 1945 Unknown [id number] 2.16840.1.452873.3.579.2. 1285 1945 Unknown [id number] 2.16.840.1.957949.3.579.2. 1285 1945 Unknown [id number] 2.16.840.1.135430.3.579.2. 1285 1945 Unknown [id number] 2.16840.1.304117.3.579.2. 1259 1945 Unknown [id number] 2.16.840.1.570954.3.579.2. 1259 -08-1945 Unknown [id number] 2.16.840.1.152709.3.579.2. 1259 -08-1945 Unknown [id number] 2.16.840.1.507037.3.579.2. 1259 -08-1945 Unknown [id number] 2.16.840.1.519444.3.579.2. 1259 -08-1945 Unknown [id number] 2.16.840.1.915727.3.579.2. 1259 -08-1945 Unknown [id number] 2.16.840.1.598490.3.579.2. 1259 -08-1945 Unknown [id number] 2.16.840.1.928525.3.579.2. 1259 -08-1945 Unknown [id number] 2.16.840.1.976434.3.579.2. 1259 -08-1945 Unknown [id number] 2.16.840.1.274726.3.579.2. 1259 -08-194 Unknown [id number] 2.16.840.1.848454.3.579.2. 1259 -08-194 Unknown [id number] 2.16.840.1.884087.3.579.2. 1259 -08-1945 Unknown [id number] 2.16.840.1.035291.3.579.2. 1259 -08-1945 Unknown [id number] 2.16.840.1.021332.3.579.2. 1259 -08-1945 Unknown [id number] 2.16.840.1.949060.3.579.2. 1259 -08-1945 Unknown [id number] 2.16.840.1.553515.3.579.2. 1259 -08-1945 Unknown [id number] 2.16.840.1.594260.3.579.2. 1259 1945 Unknown [id number] 2.16.840.1.436358.3.579.2. 9 1945 Unknown [id number] 2.16.840.1.682036.3.579.2. 9 1945 Unknown [id number] 2.16.840.1.303289.3.579.2. 9 1945 Unknown [id number] 2.16.840.1.599875.3.579.2. 1259 Social History Date Type Detail Facility Start: 11-29-2023 End: 04-03-2024 Tobacco smoking status NHIS Never smoked tobacco [facility] History of tobacco use Passive smoker [facility] Start: 11-29-2023 End: 04-03-2024 Tobacco use and exposure Smokeless tobacco non-user [facility] Start: 11-29-2023 End: 12-19-2024 Alcohol intake Current non-drinker of alcohol (finding) [facility] Start: 11-29-2023 End: 04-02-2024 Alcohol intake [facility] Start: 11-29-2023 End: 04-02-2024 Tobacco use panel [facility] drinker of alcohol (finding) [facility] Start: 05-04-2023 Alcohol Comment caffeine: occasional [facility] Start: 1945 Sex Assigned At Not on file [facility] Start: 07-10-2024 End: 12-26-2024 Alcoholic beverage intake Ex-drinker (finding) [facility] Do you belong to any clubs or organizations such as mu-ism groups, unions, fraternal or athletic groups, or [...] got money to buy more. Never true [facility] Start: 04-03-2024 Tobacco Comment Second hand smoke from Father [facility] Start: 06-27-2015 Sex Female (finding) [facility] Procedure Code Equipment Code Equipment Origin al Text Equipment Identifier Dates Patch Dura 1x1in Drmtrx-[place] + Clgn Rgnrt Membr Strl - [id number] Start: 07-03-2021 Goals Date Patient Goal Desired Activity /State Personal health goal Comment on above: Formatting of this n ote might be different from the original. Evaluation of progress towards goal: safe transition from hospital to home with support of her friends/neighbors Personal health goal Clinical Notes 12-13-2023 to 12-26-2024 Alyce Marrero MA - 12/26/2024 9:20 AM ESTTelephone Encounter - Flora Garcia - 12/25/2024 11:54 AM ESTTelephone Encounter - Flora Garcia - 12/25/2024 11:54 AM ESTPatient Instructions Note Date & Type Note Facility 12-26-2024 History of Present illness Narrative Images from the original note were not included. Angela Ruth is a 79 y.o. female presents with chief complaint of Fall and ER Follow-up HPI: Patient presents to the office for an ER follow up for a fall that happened on Wednesday. She threw something away, turned around in the kitchen and then fell onto her right side. She did hit her head during the fall but denies any LOC. Reports she is sore but is feeling better than a couple days ago.Has been taking Tylenol and Aleve OTC at home with some relief. Feels like she has been more depressed recently. She is on Lexapro 20mg but reports she has been on that for at least 20 years and feels like it is not doing anything for her. Would like to change her medication. Has been having issues with insomnia. She will fall asleep for a couple hours then wake up and have a hard time falling back asleep. She is on Amitriptyline 50mg nightly. Would like to increase the dose or change medication. Reports having a hoarse voice intermittently for the past couple months. Was seen in July for the same issue. She does report some nasal drainage, has been taking flonase but is still having the hoarse voice intermittently. Would like a referral to ENT Takes Omeprazole for Gerd in the morning and takes Pepcid at night due to Omeprazole not working through the night for her. Reports her GI doctor Dr. Leach has been prescribing Pepcid for her on top of Omeprazole but he has retired recently. Would like a refill of her Pepcid. Flowsheet Row Office Visit from 12/26/2024 in [facility] with Bia Cao MD Hospital Information ED, Hospital or Senior Care Facility Discharge? ED Patient has been contacted within 1 week of being seen in the ED Yes Diagnosis Fall Discharge Date 12/23/24 Discharged To: Home [facility] Call Start Time 925 Admission Date 12/23/24 Medications Discharge medications reviewed and reconciled from hospital? Yes Is the patient having any side effects they believe may be caused by any medication additions or changes? No Does the patient have all medications ordered at discharge? Yes Is the patient taking all medications as directed (includes completed medication regime)? Yes Appointments Does the patient have a primary care provider? Yes Does the patient have any upcoming specialty appointments? Yes Self Management Patient Teaching Does the patient have access to their discharge instructions? Yes What is the patient's perception of their health status since discharge? Improving Is the patient/caregiver able to teach back the hierarchy of who to call/visit for symptoms/problems? PCP, Specialist, Home Health nurse, Urgent Care, ED, 911 Yes Wrap Up Call End Time 929 SUBJECTIVE: MEDICATIONS: Current Outpatient Medications Medication Instructions [...] oxybutynin XL (DITROPAN-XL) 10 mg, Oral, Daily zafirlukast (Accolate) 20 MG tablet TAKE 1 TABLET BY MOUTH IN THE MORNING AND 1 AT BEDTIME ALLERGIES: Allergies Allergen Reactions Indomethacin Unknown fainting [...] 1953 APPENDECTOMY 1965 BREAST BIOPSY x4 - [id number] CHOLECYSTECTOMY 2002 EYE SURGERY 01/21/2023 retinal repair [facility] HEMANGIOMA EXCISION 1946 from upper back HYSTERECTOMY 1984 KNEE SURGERY Bilateral arthroscopic knee surgery x3 (Rx2, Lx1) ([id number]) LAPAROTOMY OOPHERECTOMY 1985 LUMBAR DISCECTOMY 1989 partial LUMBAR DISCECTOMY 01/14/2017 Microdiscetomy L5-S1 LUMBAR DISCECTOMY 07/03/2021 L1-2 partial discectomy, L1-2, L2-3 cleaning out of stenosis in the spinal canal DR. Edwards [facility] LUMBAR EPIDURAL INJECTION 12/20/2020 Dr Clifton [...] Sister Nisa Dunham Cancer Mother's Sister Janet Jackie COPD Father's Brother Jluis Baer Early natural Mother's Sister Lorna Fawadrhettayush Mental illness Neg Hx Drug abuse Neg Hx SOCIAL HISTORY: Social History Tobacco Use Smoking status: Never Smokeless tobacco: Never Tobacco comments: Second hand smoke from Father Vaping Use Vaping status: Never Used Substance Use Topics Alcohol use: Not Currently Comment: caffeine: occasional Drug use: Never Depression: Not at risk (08/14/2024) PHQ-2 PHQ-2 Score: 0 Recent Concern: Depression - At risk (07/13/2024) Received from [facility] PHQ-2 Total Score: 3 REVIEW OF SYMPTOMS: Review of Systems Constitutional: Negative. HENT: Positive for voice change. Eyes: Negative. Respiratory: Negative. Cardiovascular: Negative. Gastrointestinal: Negative. Musculoskeletal: Positive for arthralgias. Skin: Negative. Neurological: Negative. Psychiatric/Behavioral: Positive for sleep disturbance. OBJECTIVE: Visit Vitals BP 122/74 (BP Location: Left arm, Patient Position: Sitting, BP Cuff Size: Adult) Pulse 85 Resp 18 Ht 5' 3 Wt 150 lb SpO2 97% BMI 26.57 kg/m Smoking Status Never BSA 1.74 m Physical Exam Vitals and nursing note reviewed. Constitutional: Appearance: Normal appearance. HENT: Head: Normocephalic and atraumatic. Cardiovascular: Rate and Rhythm: Normal rate and regular rhythm. Pulses: Normal pulses. Heart sounds: Normal heart sounds. Pulmonary: Effort: Pulmonary effort is normal. No respiratory distress. Breath sounds: Normal breath sounds. No wheezing. Musculoskeletal: Right shoulder: Tenderness present. No swelling or deformity. Cervical back: Normal range of motion. Right hip: Tenderness present. No deformity. Right knee: No swelling or deformity. Tenderness present. Skin: General: Skin is warm and dry. Neurological: General: No focal deficit present. Mental Status: She is alert and oriented to person, place, and time. Psychiatric: Mood and Affect: Mood normal. Behavior: Behavior normal. ASSESSMENT AND PLAN: Assessment/Plan Problem List Items Addressed This Visit Nervous Primary insomnia Relevant Medications mirtazapine (Remeron) 15 MG tablet Take this medication nightly to help with insomnia and depression. Follow up in 6 weeks. Digestive Gastroesophageal reflux disease without esophagitis Relevant Medications famotidine (Pepcid) 20 MG tablet Other Major depressive disorder, single episode, in full remission (CMS/[facility]) Relevant Medications mirtazapine (Remeron) 15 MG tablet Other Visit Diagnoses Hoarse - Primary Relevant Orders Ambulatory referral to ENT Fall, subsequent encounter Relevant Orders Ambulatory referral to Physical Therapy PT to help with balance after recent fall. Take Remeron 15mg nightly to help with insomnia and depression. Dose can be increased if this dose is not working. ENT referral place for ongoing hoarse voice. Physical Therapy referral placed to help with balance after recent fall. Follow up in 6 weeks for Medication change (Remeron) documented in this encounter [facility] 12-25-2024 Telephone encounter Note Sorjaspal I forgot to add I scheduled her an appt. [facility] 12-25-2024 Miscellaneous Notes Sorjaspal I forgot to add I scheduled her an appt. Please call to check on her This is Angela Ruth. My phone number is [phone] for I am calling to let Dr Sutherland know that I fell on Wednesday night and was seen in, ER. Thank you very much, maría. documented in this encounter [facility] 12-25-2024 Telephone encounter Note Please call to check on her [facility] 12-25-2024 Telephone encounter Note This is Angela Ruth. My phone number is [phone] for I am calling to let Dr Sutherland know that I fell on Wednesday night and was seen in, ER. Thank you very much, maría. [facility] 12-19-2024 History of Present illness Narrative Images from the original note were not included. [address] [place] [address] A [facility] B [facility] [id number] Patient: Angela Ruth Date of : 1945 Encounter Date: 12/19/2024 History of Present Illness: Chief Complaint: urge incontience The patient is a 79 y.o. female, an established patient, and is here for followup. She has had progressive issues with urinary [...] 4 prior surgeries on L1-L5. PVR minimal. We had discussed that this was multifactorial in nature including her back, constipation and caffeine consumption.. She did decrease her caffeine consumption. She had been working on her constipation but found that MiraLax is causing diarrhea. Even with the resolution of the constipation however her urgency and urge incontinence was not much different. Continues to use 1-2 pads per day. Summary of old records: Urinalysis today: No results for input(s): EXTPOCURCO , EXTPOCURCH , EXTPOCAPP , EXTPOCURBS , EXTPOCURBIL , EXTPOCUKET , EXTPOCUSPG , EXTPOCUHGB , EXTPOCUPRO , EXTPOCUURO , EXTPOCULEU , EXTPOCUNIT , EXTPOCUWBC , EXTPOCUBLD , EXTPOCURBC , EXTPOCUCRY , EXTPOCUBAC , EXTPOCUTREP , EXTPOCUPH , EXTPOCULEE in the last 72 hours. Last BUN and creatinine: Lab Results Component [...] (benign paroxysmal positional vertigo) Brain tumor (benign) ([facility]) Breast disorder 4 biopsies Bronchitis 01/01/2017 Cancer ([facility]) Basal cell Carpal tunnel syndrome Cataract [...] Performed by Alexander Leach MD at [facility] ENDOSCOPY COSMETIC SURGERY 1985 DISCECTOMY 1989 Partial L4-5 EGD 2001 EYE SURGERY 2014 FOOT SURGERY 2008 Reattachment of tendon left foot with bone graft HIP SURGERY 2003 Excision of bursa left hip HYSTERECTOMY 1984 INJECTION BLOCK EPIDURAL STEROID LUMBAR/SACRAL Left L 5,1 NR Left 12/20/2020 Performed by Shubham Clifton MD at [facility] INJECTION BLOCK NERVE MEDIAL BRANCH right C 4/5,5/6 Right 05/22/2022 Performed by Shubham Clifton MD at [facility] INJECTION BLOCK NERVE MEDIAL BRANCH right C 4/5,5/6 Right 04/17/2022 Performed by Shubham Clifton MD at [facility] CAUDAL EPIDURAL WITH CATHETER, STEROID N/A 03/07/2018 Performed by Shubham Clifton MD at [facility] LARGE JOINT BURSA: bilat hip Bilateral 12/10/2017 Performed by Shubham Clifton MD at [facility] INJECTION MEDIAL BRANCH NERVE BLOCK Bilateral L 4/5, 5/1 Bilateral 06/28/2017 Performed by Shubham Clifton MD at [facility] IN[facility]CTION MEDIAL BRANCH NERVE BLOCK Right L 2/3, 3/4 Right 12/08/2019 Performed by Shubham Clifton MD at [facility] IN[facility]CTION MEDIAL BRANCH NERVE BLOCK RIGHT L23 34 Right 01/19/2020 Performed by Shubham Clifton MD at [facility] INJECTION SI JOINT Bilateral 04/09/2017 Performed by Shubham Clifton MD at [facility] INJECTION SI JOINT Bilateral SI Joint Bilateral 05/31/2020 Performed by Shubham Clifton MD at [facility] INJECTION SI JOINT Left SI JOint Left 01/06/2019 Performed by Shubham Clifton MD at [facility] INJECTION SI JOINT Right SI Joint Right 06/09/2019 Performed by Shubham Clifton MD at [facility] SPINE TRANSFORAMINAL Left L 4, 5 NR Left 09/24/2017 Performed by Shubham Clifton MD at [facility] SPINE TRANSFORAMINAL Left L 5,1 Nroot Left 01/08/2023 Performed by Shubham Clifton MD at [facility] INJECTION SPINE TRANSFORAMINAL Right L 5,1 Nroot Right 11/27/2022 Performed by Shubham Clifton MD at [facility] STEROID EPI 1 WITH SEDATION Left 5,1 NR Left 05/08/2019 Performed by Shubham Clifton MD at [facility] KNEE ARTHROSCOPY 2010, 2013 KNEE SURGERY 2010 2013 Arthroscopy bilateral/repair meniscus right X2, left X1 LAMINECTOMY LUMBAR FORAMENOTOMY MULTI LEVEL L1-2 RIGHT/L2-3 BILATERAL/LUMBAR DRAIN INSERTION N/A 07/03/2021 Performed by Ileana Cortes MD at [facility] LAPAROTOMY OOPHERECTOMY Bilateral 1984 LUMBAR DISCECTOMY LUMBAR FUSION 2009 L3-5 LUMBAR LAMINECTOMY MICRO LUMBAR DISCECTOMY L5-S1/ FORAMINOTOMY L5-S1 Left 01/14/2017 Performed by Ileana Cortes MD at [facility] OOPHORECTOMY 1982 OTHER SURGICAL HISTORY Knee Arthroscopy With Medial Meniscus Repair OTHER SURGICAL HISTORY Spinal Diskectomy RADIO FREQUENCY ABLATION Left L 4/5, 5/1 Left 12/02/2018 Performed by Shubham Clifton MD at [facility] RADIO FREQUENCY ABLATION Left L 4/5, 5/1 Left 07/30/2017 Performed by Shubham Clifton MD at [facility] RADIO FREQUENCY ABLATION Left SI joint Left 03/31/2019 Performed by Shubham Clifton MD at [facility] RADIO FREQUENCY ABLATION Right L2/3, 3/4 Right 03/29/2020 Performed by Shubham Clifton MD at [facility] RADIOFREQUENCY ABLATION SPINAL Left Si joint Left 05/07/2017 Performed by Shubham Clifton MD at [facility] RADIOFREQUENCY ABLATION SPINAL Right C 4/5,5/6 Right 06/26/2022 Performed by Shubham Clifton MD at [facility] RADIOFREQUENCY ABLATION SPINAL RIGHT SI JOINT Right 05/21/2017 Performed by Shubham Clifton MD at [facility] RELEASE CARPAL TUNNEL Left 11/04/2021 Performed by Ileana Cortes MD at [facility] SHOULDER SURGERY 2012 Right rotator cuff [...] mg total) by mouth in the morning. fvezvgx-jhohoajfwjrkw-hpubzotk (EXCEDRIN MIGRAINE) 250-250-65 mg per tablet Take [...] Activity Alcohol Use No Review of Systems: General: Negative for chills and fever. Cardiovascular: Negative for chest pain and shortness of breath. Gastrointestinal: Positive for constipation -per HPI Physical Exam: BP 162/87 Pulse 86 Ht 160 cm (5' 3 ) Wt 67.6 kg (149 lb) BMI 26.39 kg/m Assessment and Plan: Diagnoses and all orders for this visit: Urge incontinence Problem List Genitourinary Urge incontinence - Primary Overview 08/29/2024: Urge incontinence. Multifactorial including her back issues, constipation, caffeine consumption. Recommended decreasing caffeine as well as addressing constipation with nawh-lyl-akpaxnf agents. If no improvement can add beta 3 agonist 12/19/2024: No substantial improvement with decreased caffeine consumption and treatment of constipation. Plan to trial Myrbetriq 50 mg. She will monitor blood pressure at home. We will continue oxybutynin. Follow-up: Maria C Kramer MD This note was created with the assistance of a speech recognition program. While intending to generate a timely document that accurately reflects the content of the visit, no guarantee can be provided that every grammatical or spelling mistake has been or will be identified or corrected. Thank you for your understanding. documented in this encounter [facility] 12-12-2024 Telephone encounter Note Approvals with refills [facility] 12-12-2024 Miscellaneous Notes Approvals with refills documented in this encounter [facility] 12-08-2024 History of Present illness Narrative Images [...] List Items Addressed This Visit Essential hypertension ([facility]) Overview Managed by dr cifuentes Age-related osteoporosis without current pathological fracture ([facility]) Other Visit Diagnoses Urinary frequency [...] skin lesions today. documented in this encounter [facility] 12-06-2024 History of Present illness Narrative Reason [...] (benign paroxysmal positional vertigo) Brain tumor (benign) ([facility]) Breast disorder 4 biopsies Bronchitis 01/01/2017 Cancer ([facility]) Basal cell Carpal tunnel syndrome Cataract [...] Performed by Alexander Leach MD at [facility] ENDOSCOPY COSMETIC SURGERY 1984 DISCECTOMY 1989 Partial L4-5 EGD 2001 EYE SURGERY 2014 FOOT SURGERY 2009 Reattachment of tendon left foot with bone graft HIP SURGERY 2004 Excision of bursa left hip HYSTERECTOMY 1984 INJECTION BLOCK EPIDURAL STEROID LUMBAR/SACRAL Left L 5,1 NR Left 12/20/2020 Performed by Shubham Clifton MD at [facility] INJECTION BLOCK NERVE MEDIAL BRANCH right C 4/5,5/6 Right 05/22/2022 Performed by Shubham Clifton MD at [facility] INJECTION BLOCK NERVE MEDIAL BRANCH right C 4/5,5/6 Right 04/17/2022 Performed by Shubham Clifton MD at [facility] IN[facility]CTION CAUDAL EPIDURAL WITH CATHETER, STEROID N/A 03/07/2018 Performed by Shubham Clifton MD at [facility] LARGE JOINT BURSA: bilat hip Bilateral 12/10/2017 Performed by Shubham Clifton MD at [facility] INJECTION MEDIAL BRANCH NERVE BLOCK Bilateral L 4/5, 5/1 Bilateral 06/28/2017 Performed by Shubham Clifton MD at [facility] MEDIAL BRANCH NERVE BLOCK Right L 2/3, 3/4 Right 12/08/2019 Performed by Shubham Clifton MD at [facility] MEDIAL BRANCH NERVE BLOCK RIGHT L23 34 Right 01/19/2020 Performed by Shubham Clifton MD at [facility] INJECTION SI JOINT Bilateral 04/09/2017 Performed by Shubham Clifton MD at [facility] INJECTION SI JOINT Bilateral SI Joint Bilateral 05/31/2020 Performed by Shubham Clifton MD at [facility] INJECTION SI JOINT Left SI JOint Left 01/06/2019 Performed by Shubham Clifton MD at [facility] INJECTION SI JOINT Right SI Joint Right 06/09/2019 Performed by Shubham Clifton MD at [facility] SPINE TRANSFORAMINAL Left L 4, 5 NR Left 09/24/2017 Performed by Shubham Clifton MD at [facility] SPINE TRANSFORAMINAL Left L 5,1 Nroot Left 01/08/2023 Performed by Shubham Clifton MD at [facility] SPINE TRANSFORAMINAL Right L 5,1 Nroot Right 11/27/2022 Performed by Shubham Clifton MD at [facility] STEROID EPI 1 WITH SEDATION Left 5,1 NR Left 05/08/2019 Performed by Shubham Clifton MD at [facility] KNEE ARTHROSCOPY 2013 KNEE SURGERY 2010 2013 Arthroscopy bilateral/repair meniscus right X2, left X1 LAMINECTOMY LUMBAR FORAMENOTOMY MULTI LEVEL L1-2 RIGHT/L2-3 BILATERAL/LUMBAR DRAIN INSERTION N/A 07/03/2021 Performed by Ileana Cortes MD at [facility] LAPAROTOMY OOPHERECTOMY Bilateral 1984 LUMBAR DISCECTOMY LUMBAR FUSION 2010 L3-5 LUMBAR LAMINECTOMY MICRO LUMBAR DISCECTOMY L5-S1/ FORAMINOTOMY L5-S1 Left 01/14/2017 Performed by Ileana Cortes MD at [facility] OOPHORECTOMY 1982 OTHER SURGICAL HISTORY Knee Arthroscopy With Medial Meniscus Repair OTHER SURGICAL HISTORY Spinal Diskectomy RADIO FREQUENCY ABLATION Left L 4/5, 5/1 Left 12/02/2018 Performed by Shubham Clifton MD at [facility] RADIO FREQUENCY ABLATION Left L 4/5, 5/1 Left 07/30/2017 Performed by Shubham Clifton MD at [facility] RADIO FREQUENCY ABLATION Left SI joint Left 03/31/2019 Performed by Shubham Clifton MD at [facility] RADIO FREQUENCY ABLATION Right L2/3, 3/4 Right 03/29/2020 Performed by Shubham Clifton MD at [facility] RADIOFREQUENCY ABLATION SPINAL Left Si joint Left 05/07/2017 Performed by Shubham Clifton MD at [facility] RADIOFREQUENCY ABLATION SPINAL Right C 4/5,5/6 Right 06/26/2022 Performed by Shubham Clifton MD at [facility] RADIOFREQUENCY ABLATION SPINAL RIGHT SI JOINT Right 05/21/2017 Performed by Shubham Clifton MD at [facility] RELEASE CARPAL TUNNEL Left 11/04/2021 Performed by Ileana Cortes MD at [facility] SHOULDER SURGERY 2011 Right rotator [...] mouth in the morning., Disp: , Rfl: hfbqkok-kayrodogsogbz-wseyrajo (EXCEDRIN MIGRAINE) 250-250-65 mg per tablet, Take [...] months with doctor John Johnson MD, MPH, [facility] [address] [address] Dept: [phone] FAX: [phone] documented in this encounter [facility] [employer] [facility] 11-29-2024 Telephone encounter Note Approvals with refills [facility] 11-29-2024 Miscellaneous Notes Approvals with refills documented in this encounter [facility] 11-06-2024 Telephone encounter Note Approvals with refills [facility] 11-06-2024 Miscellaneous Notes Approvals with refills documented in this encounter [facility] 10-30-2024 History of Present illness Narrative Images [...] (four) hours., Disp: 18 g, Rfl: 11 yshtjigqls-kheosrbgxncad-eroygut e 50-325-40 MG tablet, Take 1 tablet [...] 1952 APPENDECTOMY 1965 BREAST BIOPSY x4 - [id number] CHOLECYSTECTOMY 2001 EYE SURGERY 01/21/2023 retinal repair [facility] HEMANGIOMA EXCISION 1946 from upper back HYSTERECTOMY 1984 KNEE SURGERY Bilateral arthroscopic knee surgery x3 (Rx2, Lx1) ([id number]) LAPAROTOMY OOPHERECTOMY 1985 LUMBAR DISCECTOMY 1989 partial LUMBAR DISCECTOMY 01/14/2017 Microdiscetomy L5-S1 LUMBAR DISCECTOMY 07/03/2021 L1-2 partial discectomy, L1-2, L2-3 cleaning out of stenosis in the spinal canal DR. Edwards [facility] LUMBAR EPIDURAL INJECTION 12/20/2020 Dr Clifton [...] Grandfather Tra Baer Diabetes Paternal Grandmother Sandra Keyur Hearing loss Paternal Grandmother Sandra Keyur Stroke Paternal Grandmother Sandra Keyur Alcohol abuse Father's Brother Jesús Baer Cancer [...] Santo Christianson DPM documented in this encounter [facility] 10-30-2024 Instructions Santo Christianson DPM - 10/30/2024 1:45 PM EST As noted documented in this encounter [facility] 10-06-2024 Telephone encounter Note Voicemail left for Angela at [phone]. Call back number given. 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 My note was forward to Dr. Hoover for review. At this time we recommend follow up and new imaging in 1 year. Rose Velasquez MSN, FURNACE UNLOADER, CLINICAL RESOURCE DIRECTOR Certified Nurse Practitioner [facility] Work Phone: 10-06-2024 Miscellaneous Notes Voicemail left for Angela at [phone]. Call back number given. 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 My note was forward to Dr. Hoover for review. At this time we recommend follow up and new imaging in 1 year. Rose Velasquez MSN, FURNACE UNLOADER, CLINICAL RESOURCE DIRECTOR Certified Nurse Practitioner General Call Caller : Angela Contact Reason for Call : Did you speak with Dr. Hoover regarding her most recent appt? Patient requesting return call ? Yes documented in this encounter [facility] 10-04-2024 Telephone encounter Note General Call Caller : Angela Contact Reason for Call : Did you speak with Dr. Hoover regarding her most recent appt? Patient requesting return call ? Yes [facility] 09-26-2024 Note HNO ID: [id number] Author: ROSE VELASQUEZ APRN.CNP Service: ? Author Type: Nurse Practitioner Type: Progress Notes Filed: 09/26/2024 15:27 Note Text: [facility] [place] [facility] NEURO-ONCOLOGY OUTPATIENT CLINIC NOTE [...] side to side (more content not included)... [facility] 09-26-2024 History of Present illness Narrative Images from the original note were not included. Neurological [place] [facility] NEURO-ONCOLOGY OUTPATIENT CLINIC NOTE [...] DATE OF EXAM: Sep 26 2024 12:29PM [facility] 0295 - MRI BRAIN WO/W [...] petrous ridge presumed meningioma compared to 03/02/2024. Technical Training Manager: ALLYSSA Transcribe Date/Time: Sep 26 2024 2:10P [...] - All questions were answered. Rose Velasquez APRN.CLINICAL RESOURCE DIRECTOR Certified Nurse Practitioner cc: Mandi Hoover MD - Epic documented in this encounter [facility] 09-26-2024 History of Present illness [...] TIME: 11:27 AM documented in this encounter [facility] 09-26-2024 Note HNO ID: [id number] Author: JESSICA HOWELL RN Service: Nursing Author [...] DATE: September 26, 2024 TIME: 11:27 AM [facility] 08-29-2024 History of Present illness Narrative Images from the original note were not included. [address] [place] [id number] Patient: Angela Ruth Date of : 1945 [...] (benign paroxysmal positional vertigo) Brain tumor (benign) ([facility]) Breast disorder 4 biopsies Bronchitis 01/01/2017 Cancer ([facility]) Basal cell Carpal tunnel syndrome Cataract [...] Performed by Alexander Leach MD at [facility] ENDOSCOPY COSMETIC SURGERY 1985 DISCECTOMY 1990 Partial L4-5 EGD 2001 EYE SURGERY 2015 FOOT SURGERY 2009 Reattachment of tendon left foot with bone graft HIP SURGERY 2004 Excision of bursa left hip HYSTERECTOMY 1984 INJECTION BLOCK EPIDURAL STEROID LUMBAR/SACRAL Left L 5,1 NR Left 12/20/2020 Performed by Shubham Clifton MD at [facility] INJECTION BLOCK NERVE MEDIAL BRANCH right C 4/5,5/6 Right 05/22/2022 Performed by Shubham Clifton MD at [facility] INJECTION BLOCK NERVE MEDIAL BRANCH right C 4/5,5/6 Right 04/17/2022 Performed by Shubham Clifton MD at [facility] CAUDAL EPIDURAL WITH CATHETER, STEROID N/A 03/07/2018 Performed by Shubham Clifton MD at [facility] LARGE JOINT BURSA: bilat hip Bilateral 12/10/2017 Performed by Shubham Clifton MD at [facility] MEDIAL BRANCH NERVE BLOCK Bilateral L 4/5, 5/1 Bilateral 06/28/2017 Performed by Shubham Clifton MD at [facility] INJECTION MEDIAL BRANCH NERVE BLOCK Right L 2/3, 3/4 Right 12/08/2019 Performed by Shubham Clifton MD at [facility] MEDIAL BRANCH NERVE BLOCK RIGHT L23 34 Right 01/19/2020 Performed by Shubham Clifton MD at [facility] INJECTION SI JOINT Bilateral 04/09/2017 Performed by Shubham Clifton MD at [facility] INJECTION SI JOINT Bilateral SI Joint Bilateral 05/31/2020 Performed by Shubham Clifton MD at [facility] INJECTION SI JOINT Left SI JOint Left 01/06/2019 Performed by Shubham Clifton MD at [facility] INJECTION SI JOINT Right SI Joint Right 06/09/2019 Performed by Shubham Clifton MD at [facility] SPINE TRANSFORAMINAL Left L 4, 5 NR Left 09/24/2017 Performed by Shubham Clifton MD at [facility] INJECTION SPINE TRANSFORAMINAL Left L 5,1 Nroot Left 01/08/2023 Performed by Shubham Clifton MD at [facility] INJECTION SPINE TRANSFORAMINAL Right L 5,1 Nroot Right 11/27/2022 Performed by Shubham Clifton MD at [facility] STEROID EPI 1 WITH SEDATION Left 5,1 NR Left 05/08/2019 Performed by Shubham Clifton MD at [facility] KNEE ARTHROSCOPY 2010, 2013 KNEE SURGERY 2010 2013 Arthroscopy bilateral/repair meniscus right X2, left X1 LAMINECTOMY LUMBAR FORAMENOTOMY MULTI LEVEL L1-2 RIGHT/L2-3 BILATERAL/LUMBAR DRAIN INSERTION N/A 07/03/2021 Performed by Ileana Cortes MD at [facility] LAPAROTOMY OOPHERECTOMY Bilateral 1984 LUMBAR DISCECTOMY LUMBAR FUSION 2010 L3-5 LUMBAR LAMINECTOMY MICRO LUMBAR DISCECTOMY L5-S1/ FORAMINOTOMY L5-S1 Left 01/14/2017 Performed by Ileana Cortes MD at [facility] OOPHORECTOMY 1982 OTHER SURGICAL HISTORY Knee Arthroscopy With Medial Meniscus Repair OTHER SURGICAL HISTORY Spinal Diskectomy RADIO FREQUENCY ABLATION Left L 4/5, 5/1 Left 12/02/2018 Performed by Shubham Clifton MD at [facility] RADIO FREQUENCY ABLATION Left L 4/5, 5/1 Left 07/30/2017 Performed by Shubham Clifton MD at [facility] RADIO FREQUENCY ABLATION Left SI joint Left 03/31/2019 Performed by Shubham Clifton MD at [facility] RADIO FREQUENCY ABLATION Right L2/3, 3/4 Right 03/29/2020 Performed by Shubham Clifton MD at [facility] RADIOFREQUENCY ABLATION SPINAL Left Si joint Left 05/07/2017 Performed by Shubham Clifton MD at [facility] RADIOFREQUENCY ABLATION SPINAL Right C 4/5,5/6 Right 06/26/2022 Performed by Shubham Clifton MD at [facility] RADIOFREQUENCY ABLATION SPINAL RIGHT SI JOINT Right 05/21/2017 Performed by Shubham Clifton MD at [facility] RELEASE CARPAL TUNNEL Left 11/04/2021 Performed by Ileana Cortes MD at [facility] SHOULDER SURGERY 2011 Right rotator [...] mg total) by mouth in the morning. pmimcrt-xztxpekkgaeiz-zejcievw (EXCEDRIN MIGRAINE) 250-250-65 mg per tablet Take [...] - [facility] - [facility] [place] - POCT Urinalysis Auto, W/O Microscopy - Measure post void residual Problem List Genitourinary Urge incontinence Overview 08/29/2024: Urge incontinence. Multifactorial including her back issues, constipation, caffeine consumption. Recommended decreasing caffeine as well as addressing constipation with dnpk-kyq-qqqhkqx agents. If no improvement can add beta [...] for your understanding. documented in this encounter [facility] 08-22-2024 Miscellaneous Notes Medication Refill request: Medication Name and Strength:FeroSuL 325 mg (65 mg iron) tablet Current dose & Frequency: take 1 tablet by mouth every morning and 1 tablet every evening with meals 30 day or 90 day supply preferred: Pharmacy Name: [facility] [address] [place] [address] [address] [address] Hours: Not open 24 hours Request was made by: Patient documented in this encounter [facility] 08-22-2024 Telephone encounter Note Medication Refill request: Medication Name and Strength:FeroSuL 325 mg (65 mg iron) tablet Current dose & Frequency: take 1 tablet by mouth every morning and 1 tablet every evening with meals 30 day or 90 day supply preferred: Pharmacy Name: [facility] [address] [place] [address] [address] [address] Hours: Not open 24 hours Request was made by: Patient [facility] 08-14-2024 History of Present illness Narrative [...] past. 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 SUBJECTIVE: MEDICATIONS: Current Outpatient Medications Medication Instructions albuterol HFA 90 mcg/act inhaler 2 puffs, Inhalation, Every 4 hours alendronate (FOSAMAX) 70 mg, Oral, Every 7 days amitriptyline (ELAVIL) 50 mg, Oral, Nightly Ascorbic Acid (vitamin C) 1000 MG tablet Every 24 hours aspirin 81 mg, Oral, Daily RT atorvastatin (LIPITOR) 40 mg, Oral, Daily buprenorphine (Butrans) 7.5 MCG/HR 1 patch, Transdermal, Weekly xwfmkwwvrf-qdmlsugqvmevk-lsyiyyz e 50-325-40 MG tablet 1 tablet, Oral, [...] an hour after taking 100mg hydralazine. Lactobacillus (Florajuanjo Women) capsule as directed Orally levothyroxine (Synthroid, [...] provided. She does not currently have an geotechnicial properties technician but is open to seeing one. A COVID-19 test was conducted today, which returned negative. She is advised to stay hydrated. If her condition deteriorates, a repeat COVID-19 test will be necessary. documented in this encounter [facility] 08-08-2024 History of Present illness Narrative Angela [...] (Butrans) 7.5 MCG/HR 1 patch, Transdermal, Weekly rbxrxpocrb-myrcyanpegwbj-cawstzm e 50-325-40 MG tablet 1 tablet, Oral, [...] 1952 APPENDECTOMY 1965 BREAST BIOPSY x4 - [id number] CHOLECYSTECTOMY 2002 EYE SURGERY 01/21/2023 retinal repair [facility] HEMANGIOMA EXCISION 1946 from upper back HYSTERECTOMY 1984 KNEE SURGERY Bilateral arthroscopic knee surgery x3 (Rx2, Lx1) ([id number]) LAPAROTOMY OOPHERECTOMY 1985 LUMBAR DISCECTOMY 1989 partial LUMBAR DISCECTOMY 01/14/2017 Microdiscetomy L5-S1 LUMBAR DISCECTOMY 07/03/2021 L1-2 partial discectomy, L1-2, L2-3 cleaning out of stenosis in the spinal canal DR. [facility] LUMBAR EPIDURAL INJECTION 12/20/2020 Dr Clifton RADIOFREQUENCY ABLATION 03/29/2020 lumbar ROTATOR CUFF REPAIR Right 2012 SPINAL FUSION 2010 L3-L5 TONSILLECTOMY 195 TRIGGER FINGER RELEASE Right 1995 release of Dequervan's tendon - R wrist TRIGGER FINGER RELEASE Right 05/16/2018 FAMILY HISTORY: Family History Problem Relation Name Age of Onset Hypertension Mother Chloe Baer Cancer Mother Chloe aBer COPD Father Dre Baer Cancer Father Dre [...] Never Depression: At risk (07/13/2024) Received from [facility] PHQ-2 Total Score: 3 REVIEW OF SYMPTOMS: [...] Relevant Medications omeprazole (PriLOSEC) [address] capsule Other Visit Diagnoses Hoarse - Primary Purulent [...] 25 mg were renewed and sent to [facility]. Follow-up The patient will follow up in 4 months. documented in this encounter [facility] 07-10-2024 History of Present illness Narrative Angela [...] consulted with Dr. Romano, a urologist in [place], some time ago but has not sought [...] (Butrans) 7.5 MCG/HR 1 patch, Transdermal, Weekly vvouidxqdk-snsthabcipaet-hjhkusu e 50-325-40 MG tablet 1 tablet, Oral, [...] 1952 APPENDECTOMY 1965 BREAST BIOPSY x4 - [id number] CHOLECYSTECTOMY 2002 EYE SURGERY 01/21/2023 retinal repair [facility] HEMANGIOMA EXCISION 1946 from upper back HYSTERECTOMY 1984 KNEE SURGERY Bilateral arthroscopic knee surgery x3 (Rx2, Lx1) ([id number]) LAPAROTOMY OOPHERECTOMY 1985 LUMBAR DISCECTOMY 1989 partial LUMBAR DISCECTOMY 01/14/2017 Microdiscetomy L5-S1 LUMBAR DISCECTOMY 07/03/2021 L1-2 partial discectomy, L1-2, L2-3 cleaning out of stenosis in the spinal canal [facility]. [facility] LUMBAR EPIDURAL INJECTION 12/20/2020 Dr Clifton [...] Depression: Not at risk (03/10/2024) Received from [facility], [facility] PHQ-2 Total Score: 0 REVIEW OF SYMPTOMS: [...] by Dr. 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 Bia Cao regarding these findings; we recommend investigating other etiologies of imbalance in Mrs. Ruth documented in this encounter [facility] 04-04-2024 Nurse Note Additional intake questions: Has the patient had fever, nausea, vomiting, diarrhea, constipation, fatigue for > 1 week? No Does the patient have a decreased appetite? No Does patient want to see a Central Service Technician? No (yes to any of above refer patient to schedulers for dietitian appointment) ) Does patient have any new or increased numbness or tingling of extremities? No Is patient interested in fertility information? No Does patient need any prescription refills? No Does patient have an advanced directive in place? Yes, no copy found in [facility] Patient referred to [facility] Electronically Signed By: Josette Sheppard MA [facility] 04-04-2024 Nurse Note Additional intake questions: Has the patient had fever, nausea, vomiting, diarrhea, constipation, fatigue for > 1 week? No Does the patient have a decreased appetite? No Does patient want to see a Central Service Technician? No (yes to any of above refer patient to schedulers for dietitian appointment) ) Does patient have any new or increased numbness or tingling of extremities? No Is patient interested in fertility information? No Does patient need any prescription refills? No Does patient have an advanced directive in place? Yes, no copy found in [facility] Patient referred to [facility] Electronically Signed By: Josette Sheppard MA documented in this encounter [facility] 04-04-2024 History of Present illness Narrative Images from the original note were not included. SECTION OF SKULL BASE SURGERY MINIMALLY INVASIVE CRANIAL BASE & PITUITARY SURGERY PROGRAM Jessica Jessicaanna Caro [facility] [place], [facility] [place] CC: Patient Care Team: Bia Cao as PCP ([facility]) Ileana Cortes MD as NI Referring Team [...] 6 months with a repeat MRI scan ([place] preference) and clinic visit with one of our skull base team advance practice providers ([place] preference). - follow up with tank storage supervisor for hearing loss which is unrelated to [...] Patient is accompanied by her granddaughter (her bung driver) and great grand daughter). 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 The patient takes ASA 81 mg daily for cardioprotection per her PCP. The patient has been using a cane for the last 5-6 years. The patient reports that ~6 weeks ago, she walked into her garage door and fell. The patient has not seen an tank storage supervisor or a vestibular therapist. Past Medical History: [...] contrast and shows a 1.2 cm R IT INFRASTRUCTURE CONSULTANT contrast-enhancing lesion extra-axial mass arising from the right posterior petrous ridge with no significant mass effect and not abutting the right vestibular cochlear complex. documented in this encounter [facility] 04-04-2024 Note HNO ID: [id number] Author: MANDI HOOVER MD Service: ? Author Type: Physician Type: Progress Notes Filed: 04/05/2024 17:50 Note Text: SECTION OF SKULL BASE SURGERY MINIMALLY INVASIVE CRANIAL BASE AND PITUITARY SURGERY PROGRAM Jessica Caro [facility] [place] [place], [facility] [place] CC: Patient Care Team: Bia aCo as PCP ([facility]) Ileana Cortes MD as NI Referring Team [...] ([place] preference). - follow up with tank storage supervisor for hearing loss which is unrelated to [...] Patient is accompanied by her granddaughter (her bung driver) and great grand daughter). 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 The patient takes ASA 81 mg daily for cardioprotection per her PCP. The patient has been using a cane for the last 5-6 years. The patient reports that ~6 weeks ago, she walked into her garage door and fell. The patient has not seen an tank storage supervisor or a vestibular therapist. Past Medical History: [...] mg (VYTORIN) 10-40 (more content not included)... [facility] 03-28-2024 Telephone encounter Note Called patient to schedule an appointment. No ans/left message to call the office back. Appointment scheduled: 04/04/2024 10:30 AM (Arrive by 10:15 AM) Mandi Hoover MD [facility] Etelvina Trujillo, PAC [facility] 03-28-2024 Miscellaneous Notes Called patient to schedule an appointment. No ans/left message to call the office back. Appointment scheduled: 04/04/2024 10:30 AM (Arrive by 10:15 AM) Mandi Hoover MD [facility] RAMAN Alonso Time Frame: First available Provider: Kiko Landrum Soni Referring: Ileana Cortes MD Images to be requested from [facility] Dx: Right CPA mass Patient: Angela Ruth Address: Angela Ruth [address] [place] [address] [facility] [address] Per Triage: HISTORY OF PRESENT ILLNESS Angela [...] extracranial soft tissues are unremarkable. Rose Velasquez APRN.CLINICAL RESOURCE DIRECTOR March 28, 2024 Referral source: Ileana Cortes MD ([facility]) Reason for visit: consideration of gamma knife for 1.2 cm enhancing lesion at right cerebelloponitine angle with leading differential including vestibular schwannoma and meningioma External records: Sent with referral and pulled from [facility] Triage: Required, forwarded to [facility] by telephone encounter sent to [facility] Scheduling Triage. Financial clearance: Not required to schedule documented in this encounter [facility] 03-28-2024 Telephone encounter Note Time Frame: First available Provider: Kiko Landrum Soni Referring: Ileana Cortes MD Images to be requested from [facility] Dx: Right CPA mass Patient: Angela Ruth Address: Angela Ruth [id number] [place] [address] [place] [id number] Per Triage: HISTORY OF PRESENT ILLNESS Angela [...] extracranial soft tissues are unremarkable. Rose Velasquez APRN.CLINICAL RESOURCE DIRECTOR March 28, 2024 T [facility] 03-24-2024 Telephone encounter Note Referral source: Ileana Cortes MD ([facility]) Reason for visit: consideration of gamma knife for 1.2 cm enhancing lesion at right cerebelloponitine angle with leading differential including vestibular schwannoma and meningioma External records: Sent with referral and pulled from [facility] Triage: Required, forwarded to [facility] by telephone encounter sent to [facility] Scheduling Triage. Financial clearance: Not required to schedule [facility] 02-24-2024 History of Present illness Narrative Images [...] Breast disorder 4 biopsies Bronchitis 01/01/2017 Cancer ([facility]) Basal cell Carpal tunnel syndrome Cataract [...] Performed by Alexander Leach MD at [facility] ENDOSCOPY COSMETIC SURGERY 1984 DISCECTOMY 1989 Partial L4-5 EGD 2001 EYE SURGERY 2014 FOOT SURGERY 2009 Reattachment of tendon left foot with bone graft HIP SURGERY 2003 Excision of bursa left hip HYSTERECTOMY 1983 INJECTION BLOCK EPIDURAL STEROID LUMBAR/SACRAL Left L 5,1 NR Left 12/20/2020 Performed by Shubham Clifton MD at [facility] INJECTION BLOCK NERVE MEDIAL BRANCH right C 4/5,5/6 Right 05/22/2022 Performed by Shubham Clifton MD at [facility] INJECTION BLOCK NERVE MEDIAL BRANCH right C 4/5,5/6 Right 04/17/2022 Performed by Shubham Clifton MD at [facility] CAUDAL EPIDURAL WITH CATHETER, STEROID N/A 03/07/2018 Performed by Shubham Clifton MD at [facility] LARGE JOINT BURSA: bilat hip Bilateral 12/10/2017 Performed by Shubham Clifton MD at [facility] MEDIAL BRANCH NERVE BLOCK Bilateral L 4/5, 5/1 Bilateral 06/28/2017 Performed by Shubham Clifton MD at [facility] INJECTION MEDIAL BRANCH NERVE BLOCK Right L 2/3, 3/4 Right 12/08/2019 Performed by Shubham Clifton MD at [facility] MEDIAL BRANCH NERVE BLOCK RIGHT L23 34 Right 01/19/2020 Performed by Shubham Clifton MD at [facility] INJECTION SI JOINT Bilateral 04/09/2017 Performed by Shubham Clifton MD at [facility] INJECTION SI JOINT Bilateral SI Joint Bilateral 05/31/2020 Performed by Shubham Clifton MD at [facility] INJECTION SI JOINT Left SI JOint Left 01/06/2019 Performed by Shubham Clifton MD at [facility] INJECTION SI JOINT Right SI Joint Right 06/09/2019 Performed by Shubham Clifton MD at [facility] INJECTION SPINE TRANSFORAMINAL Left L 4, 5 NR Left 09/24/2017 Performed by Shubham Clifton MD at [facility] INJECTION SPINE TRANSFORAMINAL Left L 5,1 Nroot Left 01/08/2023 Performed by Shubham Clifton MD at [facility] INJECTION SPINE TRANSFORAMINAL Right L 5,1 Nroot Right 11/27/2022 Performed by Shubham Clifton MD at [facility] STEROID EPI 1 WITH SEDATION Left 5,1 NR Left 05/08/2019 Performed by Shubham Clifton MD at [facility] KNEE ARTHROSCOPY 2013 KNEE SURGERY 2010 2013 Arthroscopy bilateral/repair meniscus right X2, left X1 LAMINECTOMY LUMBAR FORAMENOTOMY MULTI LEVEL L1-2 RIGHT/L2-3 BILATERAL/LUMBAR DRAIN INSERTION N/A 07/03/2021 Performed by Ileana Cortes MD at [facility] LAPAROTOMY OOPHERECTOMY Bilateral 1984 LUMBAR DISCECTOMY LUMBAR FUSION 2010 L3-5 LUMBAR LAMINECTOMY MICRO LUMBAR DISCECTOMY L5-S1/ FORAMINOTOMY L5-S1 Left 01/14/2017 Performed by Ileana Cortes MD at [facility] OOPHORECTOMY 1982 OTHER SURGICAL HISTORY Knee Arthroscopy With Medial Meniscus Repair OTHER SURGICAL HISTORY Spinal Diskectomy RADIO FREQUENCY ABLATION Left L 4/5, 5/1 Left 12/02/2018 Performed by Shubham Clifton MD at [facility] RADIO FREQUENCY ABLATION Left L 4/5, / Left 07/30/2017 Performed by Shubham Clifton MD at [facility] RADIO FREQUENCY ABLATION Left SI joint Left 03/31/2019 Performed by Shubham Clifton MD at [facility] RADIO FREQUENCY ABLATION Right L2/3, 3/4 Right 03/29/2020 Performed by Shubham Clifton MD at [facility] RADIOFREQUENCY ABLATION SPINAL Left Si joint Left 05/07/2017 Performed by Shubham Clifton MD at [facility] RADIOFREQUENCY ABLATION SPINAL Right C 4/5,5/6 Right 06/26/2022 Performed by Shubham Clifton MD at [facility] RADIOFREQUENCY ABLATION SPINAL RIGHT SI JOINT Right 05/21/2017 Performed by Shubham Clifton MD at [facility] RELEASE CARPAL TUNNEL Left 11/04/2021 Performed by Ileana Cortes MD at [facility] SHOULDER SURGERY 2011 Right rotator [...] mouth in the morning., Disp: , Rfl: edyfvnq-eeomtuwjdrvjr-jmhvthnl (EXCEDRIN MIGRAINE) 250-250-65 mg per tablet, Take 1 tablet by mouth every 6 (six) hours as needed for headaches., Disp: , Rfl: atorvastatin (LIPITOR) 40 mg tablet, Take 1 tablet (40 mg total) by mouth in the morning., Disp: , Rfl: buprenorphine (BUTRANS) 7.5 mcg/hour patch weekly, Place 1 patch on the skin once a week., Disp: , Rfl: lgnosfkdui-uttifudrmtbxg-psxk (ESGIC) 50-325-40 mg per tablet, Take 1 [...] (FOSAMAX) 35 mg tablet Dose adjustment pediatric dwjfewfm-lwga-lua (flintstones complete) tablet,chewable Duplicate Listing Total time spent was 30 minutes which did not include zbgz-tk-owby contact with the patient: Preparing to see the patient (e.g., review of tests) Obtaining and/or reviewing separately obtained history Referring and communicating with other health child care group leader (not separately reported) Documenting clinical information in the electronic or other health record Independently interpreting results (not separately reported) and communicating results to the patient/family/caregiver The note was completed using EMR. Every effort was made to ensure accuracy; however, inadvertent computerized single resource boss errors may be present. CARDIOVASCULAR STUDIES: EKG: No results found. ECHO: No results found. Stress Test: No results found. Cath: No results found. Device: Other: RYAN DALLAS MD documented in this encounter [facility] 02-09-2024 Miscellaneous Notes Patient called and stated [...] Orders documented in this encounter [facility] 02-09-2024 Note Addended by: Anna HAWKINS on: 02/10/2024 12:55 PM Modules accepted: Orders [facility] 02-09-2024 Telephone encounter Note Patient called and stated her bp has been elevated. She c/o Headache. 184/92, 224/95 217/93 she took an extra 50mg hydralazine as you have directed PRN and bp 146/78. Please advise going forward. [facility] 02-09-2024 Telephone encounter Note Increase hydralazine to 100 mg twice a day [facility] 02-09-2024 Telephone encounter Note I left patient a voicemail to call me back to verify the dose she is taking now of hydralazine. [facility] 02-09-2024 Telephone encounter Note I spoke to patient and she stated she is taking hydralazine 100mg daily. She is reluctant to try BID as it previously caused hypotension. Patient will try and then keep a bp log. [facility] 01-07-2024 History of Present illness Narrative Images [...] (migraines) Inderal (tremors) Gabapentin 200 mg nightly [place] PRN Occipital nerve blocks (last 03/2021) Tizanidine [...] Breast disorder 4 biopsies Bronchitis 01/01/2017 Cancer (CMS-HCC) Basal cell Carpal tunnel syndrome Cataract Chronic [...] Performed by Alexander Leach MD at [facility] ENDOSCOPY COSMETIC SURGERY 1984 DISCECTOMY 1989 Partial L4-5 EGD 2001 EYE SURGERY 2014 FOOT SURGERY 2009 Reattachment of tendon left foot with bone graft HIP SURGERY 2003 Excision of bursa left hip HYSTERECTOMY 1983 INJECTION BLOCK EPIDURAL STEROID LUMBAR/SACRAL Left L 5,1 NR Left 12/20/2020 Performed by Shubham Clifton MD at [facility] INJECTION BLOCK NERVE MEDIAL BRANCH right C 4/5,5/6 Right 05/22/2022 Performed by Shubham Clifton MD at [facility] INJECTION BLOCK NERVE MEDIAL BRANCH right C 4/5,5/6 Right 04/17/2022 Performed by Shubham Clifton MD at [facility] INJECTION CAUDAL EPIDURAL WITH CATHETER, STEROID N/A 03/07/2018 Performed by Shubham Clifton MD at [facility] INJECTION LARGE JOINT BURSA: bilat hip Bilateral 12/10/2017 Performed by Shubham Clifton MD at [facility] INJECTION MEDIAL BRANCH NERVE BLOCK Bilateral L 4/5, 5/1 Bilateral 06/28/2017 Performed by Shubham Clifton MD at [facility] INJECTION MEDIAL BRANCH NERVE BLOCK Right L 2/3, 3/4 Right 12/08/2019 Performed by Shubham Clifton MD at [facility] INJECTION MEDIAL BRANCH NERVE BLOCK RIGHT L23 34 Right 01/19/2020 Performed by Shubham Clifton MD at [facility] INJECTION SI JOINT Bilateral 04/09/2017 Performed by Shubham Clifton MD at [facility] INJECTION SI JOINT Bilateral SI Joint Bilateral 05/31/2020 Performed by Shubham Clifton MD at [facility] INJECTION SI JOINT Left SI JOint Left 01/06/2019 Performed by Shubham Clifton MD at [facility] INJECTION SI JOINT Right SI Joint Right 06/09/2019 Performed by Shubham Clifton MD at [facility] SPINE TRANSFORAMINAL Left L 4, 5 NR Left 09/24/2017 Performed by Shubham Clifton MD at [facility] INJECTION SPINE TRANSFORAMINAL Left L 5,1 Nroot Left 01/08/2023 Performed by Shubham Clifton MD at [facility] INJECTION SPINE TRANSFORAMINAL Right L 5,1 Nroot Right 11/27/2022 Performed by Shubham Clifton MD at [facility] STEROID EPI 1 WITH SEDATION Left 5,1 NR Left 05/08/2019 Performed by Shubham Clifton MD at [facility] KNEE ARTHROSCOPY 2010, 2013 KNEE SURGERY 2010 2013 Arthroscopy bilateral/repair meniscus right X2, left X1 LAMINECTOMY LUMBAR FORAMENOTOMY MULTI LEVEL L1-2 RIGHT/L2-3 BILATERAL/LUMBAR DRAIN INSERTION N/A 07/03/2021 Performed by Ileana Cortes MD at [facility] LAPAROTOMY OOPHERECTOMY Bilateral 1984 LUMBAR DISCECTOMY LUMBAR FUSION 2009 L3-5 LUMBAR LAMINECTOMY MICRO LUMBAR DISCECTOMY L5-S1/ FORAMINOTOMY L5-S1 Left 01/14/2017 Performed by Ileana Cortes MD at [facility] OOPHORECTOMY 1982 OTHER SURGICAL HISTORY Knee Arthroscopy With Medial Meniscus Repair OTHER SURGICAL HISTORY Spinal Diskectomy RADIO FREQUENCY ABLATION Left L 4/5, 5/1 Left 12/02/2018 Performed by Shubham Clifton MD at [facility] RADIO FREQUENCY ABLATION Left L 4/5, 5/1 Left 07/30/2017 Performed by Shubham Clifton MD at [facility] RADIO FREQUENCY ABLATION Left SI joint Left 03/31/2019 Performed by Shubham Clifton MD at [facility] RADIO FREQUENCY ABLATION Right L2/3, 3/4 Right 03/29/2020 Performed by Shubham Clifton MD at [facility] RADIOFREQUENCY ABLATION SPINAL Left Si joint Left 05/07/2017 Performed by Shubham Clifton MD at [facility] RADIOFREQUENCY ABLATION SPINAL Right C 4/5,5/6 Right 06/26/2022 Performed by Shubham Clifton MD at [facility] RADIOFREQUENCY ABLATION SPINAL RIGHT SI JOINT Right 05/21/2017 Performed by Shubham Clifton MD at [facility] RELEASE CARPAL TUNNEL Left 11/04/2021 Performed by Ileana Cortes MD at [facility] SHOULDER SURGERY 2012 Right rotator cuff [...] mg total) by mouth in the morning. tvcqnwi-jzyikbfpydvbt-ximzezot (EXCEDRIN MIGRAINE) 250-250-65 mg per tablet Take 1 tablet by mouth every 6 (six) hours as needed for headaches. atorvastatin (LIPITOR) 40 mg tablet Take 1 tablet (40 mg total) by mouth in the morning. buprenorphine (BUTRANS) 7.5 mcg/hour patch weekly Place 1 patch on the skin once a week. bwwysdzfsa-fhosbwzfxtpyz-efwl (ESGIC) 50-325-40 mg per tablet Take 1 [...] to visit. OARRS was reviewed by Yoanna Willian, FURNACE UNLOADER-CLINICAL RESOURCE DIRECTOR. Objective: BP 124/78 (BP Site: Right Arm, [...] procedures Referring and communicating with other health child care group leader (not separately reported) Documenting clinical information in the electronic or other health record Independently interpreting results (not separately reported) and communicating results to the patient/family/caregiver Care coordination (not separately reported) - Yoanna Dorsey DNP, CHACE 01/07/24 10:53 AM [facility] Rayo 01/07/24 1053 documented in this encounter [facility] 01-07-2024 Instructions CHACE Rayo - 01/07/2024 [...] earlier if needed. documented in this encounter [facility] 12-13-2023 Miscellaneous Notes Okay to sign and send documented in this encounter [facility] 12-13-2023 Telephone encounter Note Okay to sign and send [facility] Evaluation note Diagnosis General weakness- Primary Other malaise and fatigue History of falling documented in this encounter [facility] Healthcare[facility] note* Diagnosis Mixed hyperlipidemia (CMS/HCC)- Primary Mixed hyperlipidemia Stress incontinence of urine documented in this encounter [facility] HealthcareEvaluation note* Diagnosis General weakness- Primary Other malaise and fatigue History of falling documented in this encounter [facility] HealthcareEvaluation note* Diagnosis General weakness- Primary Other malaise and fatigue History of falling documented in this encounter [facility] HealthcareEvaluation note* Diagnosis Migraine without [...] this encounter [facility]* Diagnosis Essential hypertension Unspecified essential hypertension documented in this encounter [facility]* Diagnosis Essential hypertension Unspecified essential hypertension documented in this encounter [facility]* Diagnosis Essential hypertension- Primary Unspecified essential hypertension LVH (left ventricular hypertrophy) Cardiomegaly Mixed hyperlipidemia Hypotension due to drugs Other iatrogenic hypotension documented in this encounter [facility]* Diagnosis Brain mass [G93.89]- Primary Unspecified condition of brain [facility] Diagnosis Intracranial meningioma (HCC)- Primary Benign neoplasm of cerebral meninges Sensorineural hearing loss (SNHL) of right ear, unspecified hearing status on contralateral side Dizziness Dizziness and giddiness [facility] Diagnosis Intracranial meningioma (HCC)- Primary Benign neoplasm of cerebral meninges Benign neoplasm of meninges (HCC) Benign neoplasm of cerebral meninges [facility] Diagnosis Urge incontinence documented in this encounter [facility]* Diagnosis Benign neoplasm of meninges (HCC)- Primary Benign neoplasm of cerebral meninges Dizziness Dizziness and giddiness [facility] Diagnosis Benign neoplasm of meninges (HCC) Benign neoplasm of cerebral meninges [facility] Diagnosis Dermatophytosis of nail- Primary Dystrophic nail Other specified disease of nail Pain around toenail, right foot Pain around toenail, left foot documented in this encounter [facility] HealthcareEvaluation note* Diagnosis Hoarse- Primary Dysphonia Purulent postnasal drainage Primary insomnia Persistent disorder of initiating or maintaining sleep Gastroesophageal reflux disease without esophagitis Esophageal reflux documented in this encounter [facility] HealthcareEvaluation note* Diagnosis Hyperlipidemia, unspecified hyperlipidemia type ([facility]/HCC) documented in this encounter [facility] Healthcare[facility]* Diagnosis Urinary frequency- Primary Dysuria Chronic idiopathic constipation Unspecified constipation Chronic right-sided thoracic back pain Chronic right-sided thoracic back pain documented in this encounter [facility] note* Diagnosis Acute cystitis without hematuria- Primary documented in this encounter [facility] note* Diagnosis Acute bronchitis, unspecified organism- Primary Seasonal allergic rhinitis due to pollen documented in this encounter [facility] note* Diagnosis Anemia, unspecified type- Primary documented in this encounter [facility] note* Diagnosis Hypothyroidism, unspecified type- Primary Age-related osteoporosis without current pathological fracture Vitamin D deficiency documented in this encounter [facility]* Diagnosis Osteoporosis, unspecified osteoporosis type, unspecified pathological fracture presence- Primary documented in this encounter [facility]* Diagnosis Urinary frequency- Primary Essential hypertension (CMS/HCC) Unspecified essential hypertension Age-related osteoporosis without current pathological fracture ([facility]/HCC) documented in this encounter [facility] Healthcare[facility]* Diagnosis Acute cystitis without hematuria- Primary documented in this encounter [facility] note* Diagnosis Gastroesophageal reflux disease without esophagitis Esophageal reflux documented in this encounter [facility] note* Diagnosis Urge incontinence- Primary documented in this encounter [facility]* Diagnosis Osteoporosis, unspecified osteoporosis type, unspecified pathological fracture presence- Primary documented in this encounter [facility]* Diagnosis Hoarse- Primary Dysphonia Primary insomnia Persistent disorder of initiating or maintaining sleep Major depressive disorder, single episode, in full remission ([facility]) Major depressive disorder, 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 Fall, subsequent encounter Gastroesophageal reflux disease without esophagitis Esophageal reflux documented in this encounter [facility] HealthcareInstructionsNot on filedocumented in this encounter[facility] SystemInstructionsNot on filedocumented in this encounterProBrown [facility] SystemInstructionsNot on filedocumented in this encounterProBrown Memorial Hospital SystemInstructionsNot on filedocumented in this encounter[facility] InstructionsNot on filedocumented in this encounter[facility] InstructionsNot on filedocumented in this encounter[facility] InstructionsNot on filedocumented in this [facility] SystemReason for referral (narrative)* Consultation (Routine) - Authorized Specialty Diagnoses / Procedures Referred By Violette staley Referred To Contact Urology Diagnoses Urinary frequency Procedures SD OFFICE/OUTPATIENT [facility] MDM 60 MINUTES Bia Cao MD [address] [place] [address] Maria C Kramer MD [address] [place] [id number] Referral ID Status Reason Start Date Expiration Date Visits Requested Visits Authorized [id number] Authorized Specialty Services Required 07/10/2024 01/06/2025 1 1 [facility] Healthcare Summary Purpose Family History No Family History Records FoundNo Family History Records FoundNo Family History Records FoundNo Family History Records FoundNo Family History Records FoundNo Family History Records FoundNo Family History Records FoundNo Family History Records FoundNo Family History Records FoundNo Family History Records Found Advance Directives No Advanced Directives Records FoundDocuments on File Type Date Recorded 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 07/16/2021 3:45 PM Living Will 07/16/2021 3:40 [...] Documents on File Type Date Recorded 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 07/16/2021 3:45 PM Living Will 07/16/2021 3:40 [...] Referred By Violette t Referred To Contact Diagnoses Decreased hearing of both ears Procedures Hearing Evaluation (Audiology) Yoanna Dorsey APRN-CLINICAL RESOURCE DIRECTOR [address] [place] [address] Referral ID Status Reason Start Date Expiration Date V isits Requested Visits Authorized [id number] Pending Review 01/07/2024 01/06/2025 1 1 Specialty Diagnoses / Procedures Referred By Contac t Referred To Contact MR IMAGING Diagnoses Benign neoplasm of meninges (HCC) Procedures MRI BRAIN WO/W IVCON MRI BRAIN BRAIN STEM W/O W/CONTRAST MATERIAL Mandi Hoover MD [address] [place] [id number] Mr Imaging [facility]95 Referral ID Status Reason Start Date Expiration Date Visits Requested Visits Authorized [id number] Pending Review Auto-Generat ed Referral 08/28/2024 06/08/2025 1 1 Specialty Diagnoses / Procedures Referred By Contac t Referred To Contact Diagnoses Urinary frequency Procedures Measure post void residual Maria C Kramer MD [address] [place] [id number] Referral ID Status Reason Start Date Expiration Date V isits Requested Visits Authorized [id number] Pending Review 08/29/2024 08/29/2025 1 1 Specialty Diagnoses / Procedures Referred By Contac t Referred To Contact MR IMAGING Diagnoses Benign neoplasm of meninges (HCC) Procedures MRI BRAIN WO/W IVCON MRI BRAIN BRAIN STEM W/O W/CONTRAST MATERIAL Rose Velasquez APRN.CLINICAL RESOURCE DIRECTOR [address] [facility] [place] [address] Mr Imaging [facility]95 Referral ID Status Reason Start Date Expiration Date Visits Requested Visits Authorized [id number] New Request Auto-Generat ed Referral 09/26/2024 10/26/2025 1 1 Referral ID Status Reason Start Date Expiration Date V isits Requested Visits Authorized [id number] Closed Auto-Generate d Referral 08/28/2024 06/08/2025 1 1 Additional Source Comments INFORMATION SOURCE (unrecogn ized section and content) DATE CREATED AUTHOR 05/16/2018 [facility] DATE CREATED AUTHOR AUTHOR'S ORGANIZ ATION 06/21/2019 [facility] DATE CREATED AUTHOR AUTHOR'S ORGANIZ ATION 11/13/2022 [facility] DATE CREATED AUTHOR AUTHOR'S ORGANIZ ATION 12/07/2022 [facility] dical Specialist DATE CREATED AUTHOR AUTHOR'S ORGANIZ ATION 10/08/2024 [facility] DATE CREATED AUTHOR AUTHOR'S ORGANIZ ATION 12/09/2024 [facility] DATE CREATED AUTHOR AUTHOR'S ORGANIZ ATION 12/21/2024 [facility] DATE CREATED AUTHOR AUTHOR'S ORGANIZ ATION 12/24/2024 [facility] DATE CREATED AUTHOR AUTHOR'S ORGANIZ ATION 12/25/2024 [facility] DATE CREATED AUTHOR AUTHOR'S ORGANIZ ATION 12/28/2024 [facility] dical Specialists EPIC Reason for Visit (unrecogniz ed section and content) Reason Onset Date Comments Med Refill 12/13/2023 Specialty Diagnoses / Procedures Referred By Contac t Referred To Contact Physical Therapy Diagnoses Muscle weakness (generalized) Procedures TREATMENT Bia Cao MD [address] [place] [address] Jonny Salazar, PT [address] [place] [address] Referral ID Status Reason Start Date Expiration Date V isits Requested Visits Authorized [id number] Authorized 12/08/2023 06/05/2024 99 99 Reason Comments Med Refill Reason Comments Blood Pressure Check Reason Comments Received Outside Medical Records Externa l referral to Neurological [place] triage Nurse Triage Call Appointment Reason Comments Consult Reason Onset Date Comments Med Refill 08/22/2024 Reason Comments Urinary Frequency Specialty Diagnoses / Procedures Referred By Contac t Referred To Contact Urology Diagnoses Urinary frequency Bia Cao MD [address] [place] [address] [facility] [address] [place] [address] Referral ID Status Reason Start Date Expiration Date Visits Requested Visits Authorized [id number] Pending Review Specialty Services Required 07/11/2024 07/11/2025 1 1 Reason Comments New Patient Intracranial Meningi brandon Reason Comments Radiology MRI Specialty Diagnoses / Procedures Referred By Violette staley Referred To Contact MR IMAGING Diagnoses Benign neoplasm of meninges (HCC) Procedures MRI BRAIN WO/W IVCON MRI BRAIN BRAIN STEM W/O W/CONTRAST MATERIAL Mandi Hoover MD [address] [place] [id number] [place] [address] Referral ID Status Reason Start Date Expiration Date V isits Requested Visits Authorized [id number] Closed Auto-Generate d Referral 08/28/2024 06/08/2025 1 [...] is not any better. Reason Comments Follow-up Reason Comments Fall ER Follow-up Care Teams (unrecognized sec tion and content) Supervisor Final Relationship Specialty Start Date End Date Bia Cao MD [address] [place] [address] PCP - General Family Medicine 02/05/23 Supervisor Final Relationship Specialty Start Date End Date Jacob Viveros PCP - [employer] 11/22/22 Bia Cao MD [address] [place] [address] PCP - General Family Medicine 04/29/23 Supervisor Final Relationship Specialty Start Date End Date Jacob Viveros PCP - [employer] 11/22/22 Bia Cao MD [address] [place] [address] PCP - General Family Medicine 04/29/23 Supervisor Final Relationship Specialty Start Date End Date Jacob Viveros PCP - [employer] 11/22/22 Bia Cao MD [address] [place] [address] PCP - General Family Medicine 04/29/23 Supervisor Final Relationship Specialty Start Date End Date Jacob Viveros PCP - [employer] 11/22/22 Bia Cao MD [address] [place] [address] PCP - General Family Medicine 04/29/23 Supervisor Final Relationship Specialty Start Date End Date Jacob Viveros PCP - [employer] 11/22/22 Bia Cao MD [address] [place] [address] PCP - General Family Medicine 04/29/23 Supervisor Final Relationship Specialty Start Date End Date Jacob Viveros PCP - [employer] 11/22/22 Bia Cao MD [address] [place] [address] PCP - General Family Medicine 04/29/23 Supervisor Final Relationship Specialty Start Date End Date Bia Cao MD [address] [place] [address] PCP - General Family Medicine 02/05/23 Supervisor Final Relationship Specialty Start Date End Date Bia Cao MD [address] [facility] [place] [address] PCP - General Family Medicine 02/05/23 Supervisor Final Relationship Specialty Start Date End Date Bia Cao MD [address] [facility] [place] [address] PCP - General Family Medicine 02/05/23 Supervisor Final Relationship Specialty Start Date End Date Bia Cao MD [address] [facility] [place] [address] PCP - General Family Medicine 02/05/23 Supervisor Final Relationship Specialty Start Date End Date (Hist), No Pcp PCP - General 11/04/17 Ileana Cortes MD [address] [place] [address] NI Referring Team Neurosurgery 03/24/24 Supervisor Final Relationship Specialty Start Date End Date (Hist), No Pcp PCP - General 11/04/17 Ileana Cortes MD [address] [place] [address] NI Referring Team Neurosurgery 03/24/24 Supervisor Final Relationship Specialty Start Date End Date (Hist), No Pcp PCP - General 11/04/17 Ileana Cortes MD [address] [place] [address] NI Referring Team Neurosurgery 03/24/24 Supervisor Final Relationship Specialty Start Date End Date Bia Cao MD PCP - General Family Medicine 02/05/23 Supervisor Final Relationship Specialty Start Date End Date Bia Cao MD PCP - General Family Medicine 02/05/23 Supervisor Final Relationship Specialty Start Date End Date (Hist), No Pcp PCP - General 11/04/17 Ileana Cortes MD NI Referring Team Neurosurgery 03/24/24 Supervisor Final Relationship Specialty Start Date End Date (Hist), No Pcp PCP - General 11/04/17 Ileana Cortes MD NI Referring Team Neurosurgery 03/24/24 Supervisor Final Relationship Specialty Start Date End Date (Hist), No Pcp PCP - General 11/04/17 Ileana Cortes MD NI Referring Team Neurosurgery 03/24/24 Supervisor Final Relationship Specialty Start Date End Date Jacob Viveros PCP - [employer] 11/22/21 Bia Cao MD [address] [place] [address] PCP - General Family Medicine 04/29/23 Supervisor Final Relationship Specialty Start Date End Date Jacob Viveros PCP - [employer] 11/22/21 Bia Cao MD [address] [place] [address] PCP - General Family Medicine 04/29/23 Supervisor Final Relationship Specialty Start Date End Date Jacbo Viveros PCP - [employer] 11/22/21 Bia Cao MD [address] [place] [address] PCP - General Family Medicine 04/29/23 Supervisor Final Relationship Specialty Start Date End Date Jacob Viveros PCP - [employer] 11/22/21 Bia Cao MD [address] [place] [address] PCP - General Family Medicine 04/29/23 Supervisor Final Relationship Specialty Start Date End Date Jacob Viveros PCP - [employer] 11/22/21 Bia Cao MD [address] [place] [address] PCP - General Family Medicine 04/29/23 Supervisor Final Relationship Specialty Start Date End Date Jacob Viveros PCP - [employer] 11/22/21 Bia Cao MD [address] [place] [address] PCP - General Family Medicine 04/29/23 Supervisor Final Relationship Specialty Start Date End Date Jacob Viveros PCP - [employer] 11/22/21 Bia Cao MD [address] [place] [address] PCP - General Family Medicine 04/29/23 Supervisor Final Relationship Specialty Start Date End Date Jacob Viveros PCP - [employer] 11/22/21 Bia Cao MD [address] [place] [address] PCP - General Family Medicine 04/29/23 Supervisor Final Relationship Specialty Start Date End Date Jacob Viveros PCP - [employer] 11/22/21 Bia Cao MD [address] [place] [address] PCP - General Family Medicine 04/29/23 Supervisor Final Relationship Specialty Start Date End Date Bia Cao MD PCP - General Family Medicine 02/05/23 Supervisor Final Relationship Specialty Start Date End Date Bia Cao MD PCP - General Family Medicine 02/05/23 Supervisor Final Relationship Specialty Start Date End Date Bia Cao MD [address] [place] [address] PCP - General Family Medicine 04/29/23 Bia Cao MD [address] [place] [address] PCP - [employer] 11/22/21 Supervisor Final Relationship Specialty Start Date End Date Bia Cao MD [address] [place] [address] PCP - General Family Medicine 04/29/23 Bia Cao MD [address] [place] [address] PCP - [employer] 11/22/21 Supervisor Final Relationship Specialty Start Date End Date Bia Cao MD [address] [place] [address] PCP - General Family Medicine 04/29/23 Bia Cao MD [address] [place] [address] PCP - [employer] 11/22/21 Supervisor Final Relationship Specialty Start Date End Date Bia Cao MD [address] [place] [address] PCP - General Family Medicine 04/29/23 Bia Cao MD [address] [place] [address] PCP - [employer] 11/22/21 Supervisor Final Relationship Specialty Start Date End Date Bia Cao MD PCP - General Family Medicine 02/05/23 Supervisor Final Relationship Specialty Start Date End Date Bia Cao MD [address] [place] [address] PCP - General Family Medicine 04/29/23 Bia Cao MD [address] [place] [address] PCP - [employer] 11/22/21 Supervisor Final Relationship Specialty Start Date End Date Bia Cao MD [address] [place] [address] PCP - General Family Medicine 04/29/23 Bia Cao MD [address] [place] [address] PCP - [employer] 11/22/21 Supervisor Final Relationship Specialty Start Date End Date Bia Cao MD [address] [facility] [place] [address] PCP - General Family Medicine 04/29/23 Bia Cao MD [address] [facility] [place] [address] PCP - [employer] 11/22/21 Source Comments (unrecognize d section and content) In the event this informatio n is protected by the Federal Confidentiality of Alcohol and Drug Abuse Patient Records regulations: The Federal rules restrict any use of the information to criminally investigate or prosecute any alcohol or drug abuse patient.[facility] the event this information is protected by the Federal Confidentiality of Alcohol and Drug Abuse Patient Records regulations: The Federal rules restrict any use of the information to criminally investigate or prosecute any alcohol or drug abuse patient.[facility] Center[facility] the event this information is protected by the Federal Confidentiality of Alcohol and Drug Abuse Patient Records regulations: The Federal rules restrict any use of the information to criminally investigate or prosecute any alcohol or drug abuse patient.[facility] Center[facility] the event this information is protected by the Federal Confidentiality of Alcohol and Drug Abuse Patient Records regulations: The Federal rules restrict any use of the information to criminally investigate or prosecute any alcohol or drug abuse patient.[facility] Center[facility] the event this information is protected by the Federal Confidentiality of Alcohol and Drug Abuse Patient Records regulations: The Federal rules restrict any use of the information to criminally investigate or prosecute any alcohol or drug abuse patient.[facility] Center[facility] the event this information is protected by the Federal Confidentiality of Alcohol and Drug Abuse Patient Records regulations: The Federal rules restrict any use of the information to criminally investigate or prosecute any alcohol or drug abuse patient.[facility] FOR RECORDS PERTAINING TO PATIENTS [...] BE BASED ON THE PRIMARY CLINICAL RECORDS. [facility]. provides no warranty or guarantee of the accuracy or completeness of information in this document.
--- NOTE | 2024-12-28 10:58 | PM.CN ---
Consult Note: HPI Data of Consult Patient: known to practice within the last 3 years Requesting Physician: Nisa Galarza NP Primary Care Provider: TRUE SUSAN Consult Narrative Reason for consult: f/u Narrative: Angela Ruth a 79 year old female presents for evaluation of chronic back pain unresponsive to greater than 6 weeks of PT/HEP, ice, heat, tylenol and NSAIDs. pain secondary to lumbar DDD, lumbar spondylosis, sacroilitis. Hx of lumbar surgery. utilizing Tylenol, aleve, butrans and methocarbamol with benefit without side effects. denies recent falls. Pain today 8/10 sharp in middle back as well as low back and right SIJ. recently underwent right SIJ injection with mild relief. recent fall, upcoming PT. cc:: CC: Nisa Galarza NP Review of Systems ROS Status of ROS 10 or more systems reviewed and unremarkable except as noted in history and below Musculoskeletal Reports: back pain, extremity pain and joint pain PFSH PFSH Medical History TMJ (dislocation of temporomandibular joint) ?S03.00XA - Dislocation of jaw, unspecified side, initial encounter (ICD-10) Neck pain ?M54.2 - Cervicalgia (ICD-10) Back pain ?M54.9 - Dorsalgia, unspecified (ICD-10) Osteoarthritis ?M19.90 - Unspecified osteoarthritis, unspecified site (ICD-10) H/O psychiatric care ?Z92.89 - Personal history of other medical treatment (ICD-10) Heartburn ?R12 - Heartburn (ICD-10) Acid reflux ?K21.9 - Gastro-esophageal reflux disease without esophagitis (ICD-10) Hypothyroid ?E03.9 - Hypothyroidism, unspecified (ICD-10) Kidney stones ?N20.0 - Calculus of kidney (ICD-10) Asthma ?J45.909 - Unspecified asthma, uncomplicated (ICD-10) High cholesterol ?E78.00 - Pure hypercholesterolemia, unspecified (ICD-10) Hypertension ?I10 - Essential (primary) hypertension (ICD-10) Surgical History H/O shoulder surgery ?Z98.890 - Other specified postprocedural states (ICD-10) H/O excision of hemangioma ?Z98.890 - Other specified postprocedural states (ICD-10) ?Z86.018 - Personal history of other benign neoplasm (ICD-10) H/O basal cell carcinoma excision ?Z98.890 - Other specified postprocedural states (ICD-10) ?Z85.828 - Personal history of other malignant neoplasm of skin (ICD-10) H/O lumbosacral spine surgery ?Z98.890 - Other specified postprocedural states (ICD-10) H/O foot surgery ?Z98.890 - Other specified postprocedural states (ICD-10) H/O hand surgery ?Z98.890 - Other specified postprocedural states (ICD-10) H/O wrist surgery ?Z98.890 - Other specified postprocedural states (ICD-10) History of cholecystectomy ?Z90.49 - Acquired absence of other specified parts of digestive tract (ICD-10) H/O breast biopsy ?Z98.890 - Other specified postprocedural states (ICD-10) History of appendectomy ?Z90.49 - Acquired absence of other specified parts of digestive tract (ICD-10) History of tonsillectomy and adenoidectomy ?Z90.89 - Acquired absence of other organs (ICD-10) Meds Home Medications and Allergies Home Medications ?Medication ?Instructions ?Recorded ?Confirmed ?Type acetaminophen 650 mg 1,300 mg PO Q8H PRN pain 07/07/23 12/18/24 History tablet,extended release (Arthritis Pain Relief (acetaminophen) ER) albuterol 90 mcg/actuation aerosol 90 mcg inhalation .every 4 hours 07/07/23 12/18/24 History inhaler PRN shortness of breath or wheezing alendronate 35 mg tablet 70 mg PO QWEEK 07/07/23 12/18/24 History ascorbic acid (vitamin C) 500 mg 500 mg PO BID 07/07/23 12/18/24 History tablet,extended release (C Complex) aspirin 81 mg tablet,delayed 81 mg PO DAILY 07/07/23 12/18/24 History release (Adult Aspirin Regimen) atorvastatin 40 mg tablet 40 mg PO DAILY 07/07/23 12/18/24 History calcium carbonate (Calcium 600) 600 mg PO DAILY 07/07/23 12/18/24 History carvedilol 25 mg tablet 25 mg PO BID 07/07/23 12/18/24 History cholecalciferol (vitamin D3) 50 200 mcg PO DAILY 07/07/23 12/18/24 History mcg (2,000 unit) tablet (Vitamin D3) escitalopram oxalate 20 mg tablet 20 mg PO DAILY 07/07/23 12/18/24 History fenofibrate 160 mg tablet 160 mg PO DAILY 07/07/23 12/18/24 History fexofenadine 180 mg tablet 180 mg PO DAILY 07/07/23 12/18/24 History hydralazine 100 mg tablet 100 mg PO TID 07/07/23 12/18/24 History levothyroxine 150 mcg capsule 150 mcg PO DAILY 07/07/23 12/18/24 History lisinopril 20 1 tab PO DAILY 07/07/23 12/18/24 History mg-hydrochlorothiazide 12.5 mg tablet magnesium 250 mg tablet 250 mg PO DAILY 07/07/23 12/18/24 History mudkkczq-hyy-eihqq acid 0.4 1 tab PO DAILY 07/07/23 12/18/24 History mg-lycopene 300 mcg-lutein 250 mcg tablet (Centrum Silver) omeprazole 40 mg capsule,delayed 40 mg PO DAILY 07/07/23 12/18/24 History release oxybutynin chloride 10 mg 10 mg PO DAILY 07/07/23 12/18/24 History tablet,extended release 24 hr buprenorphine 7.5 mcg/hour weekly 1 patch transdermal Q7D PRN pain 11/02/24 12/18/24 Rx transdermal patch (Butrans) #4 ea methocarbamol 500 mg tablet See Rx Instructions .Route 12/07/24 12/18/24 Rx .COMPLEX PRN spasms #120 tabs Allergies Allergy/AdvReac Type Severity Reaction Status Date / Time adhesive tape Allergy unknown Verified 12/18/24 08:54 Influenza Virus Vaccines Allergy unknown Verified 12/18/24 08:54 lincomycin (From Lincocin) Allergy Unknown Verified 12/18/24 08:54 Penicillins Allergy Unknown Verified 12/18/24 08:54 Exam Constitutional Documenting provider has reviewed patient's vital signs: yes Common normals: no apparent distress, oriented x3, healthy appearing, alert and well nourished General appearance: cooperative HENMT Common normals: normocephalic, hearing grossly normal bilaterally and moist oral mucous membranes Head and scalp: normocephalic Eye Common normals: PERRL Pupil: PERRL Neck & C-Spine Common normals: full ROM General: normal visual inspection Other: negative facet loading, negative spurlings, strength 5/5 in BUE Chest Common normals: inspection of chest normal Respiratory Common normals: normal respiratory effort, no retractions and no use of accessory muscles Back & Pelvis Lumbar spine/lower back: ROM limited, pain with ROM and straight leg raise positive right Sacroiliac joints: SI joint(s) abnormal Other: right SIJ positive eri(patricks), gaenslens, thigh thrust, compression test strength 5/5 in BLE Extremity Other: no pain with internal and external log roll of right hip Neuro Common normals: oriented x3, CN's II-XII intact bilaterally, moves all extremities, no focal motor deficits, no sensory deficits noted and deep tendon reflexes 2+ bilaterally Sensorium/orientation: alert Motor exam: strength 5/5 throughout and no movement abnormalities noted Psych Common normals: mental status grossly normal, thought process normal, cooperative, affect normal, speech normal and activity/motor behavior normal Speech: normal speech Thought process: normal thought process Results Additional Findings Additional findings: If on a controlled substance or opioids, I have checked an [place] report on this patient and there are no aberrancies noted in the prescribing history.??If on a controlled substance or opioid a drug screen was completed and reviewed within the last year, and if there has not been a drug screen completed we ordered one today to monitor higher risk, state monitored pain medication use. As part of providing excellent, safe, comprehensive care, the following was completed at our patient's visit: 1. A medication reconciliation and review to ensure accurate knowledge of current/active medications, including asking our patients to inform us about any mrkv-yle-omxzgyq medications or herbal remedies/nutritional supplements/alternative remedies. 2. A review to specifically ensure our patients have had annual screening for screening for depression, screening for tobacco use, and screening for unhealthy alcohol use. For concerning screenings had a discussion with the patient, provided patient education, and recommended follow-up with primary care provider when appropriate. If patient noted with a risk of falling, they received education on strength, gait, and balance training to prevent future risk of falling. Portions of this note may have been carried over from the previous visit and updated as appropriate. Please note this office utilizes paper charting in addition to the electronic medical record. A list of current medications, vitals, and PMH is available there as the clinical staff outside of myself do not have access to [employer] charting during the clinic day operations. As part of providing quality comprehensive care the current medications, vitals, and PMH were reviewed in the paper chart. Assessment and Plan Assessment and Plan (1) Sacroiliitis: (2) Myofascial pain: (3) Lumbar stenosis with neurogenic claudication: (4) Lumbar radiculopathy: (5) Chronic prescription opiate use: Assessment and Plan: I feel these medications are improving the patient's quality of life and allow them to tolerate activities of daily living as well as participate in recreational activity.? The patient does not report intolerable side effects. The patient is NOT opioid naive and non-pharmacologic and non-opioid treatment has failed to significantly relieve the patient's pain and improve functionality. The patient has a diagnosis that is related to a somatic or visceral pain etiology. ? ?? I reviewed with the patient the potential risks and side effects with the use of? opioid medications including but not limited to respiratory depression,? sedation, and even . I advised the patient to avoid the use of any other? sedation substances including alcohol, THC, and benzodiazepines while? taking opioid medications due to the risk of compounding side effects and? detrimental outcomes. within the last 12 months I have reviewed the LOCKST[employer] SLEEVE SETTER, pain treatment agreement and urine drug screen.? ?? A drug screen was completed within the last year, and no aberrancies were noted regarding their use of controlled substances. The patient understands they are subject to the terms and conditions of the pain contract that they have signed. ? ?? I have checked an [place]AR[place] report on this patient today and there are no aberrancies noted in the prescribing history.? (6) Lumbar postlaminectomy syndrome: Plan declining spinal cord stimulator trial at this time continue current medications, risks vs benefits reviewed upcoming PT for recent fall, continue to utilize cane f/u 3 months, sooner if needed
== END 2024-12-28 10:37 | disposition home or self-care (01) ==
LOC: PM 10:37
PROVIDERS: PCP Family Medicine; Visit Provider Nurse Practitioner
DX: M46.1 Sacroiliitis, not elsewhere classified (principal); M79.18 Myalgia, other site; M48.062 Spinal stenosis, lumbar region with neurogenic claudication; M54.16 Radiculopathy, lumbar region; Z79.891 Long term (current) use of opiate analgesic; M96.1 Postlaminectomy syndrome, not elsewhere classified
CPT/HCPCS: G0463

== ENCOUNTER 2025-04-04 07:39 | Outpatient (OUT) | payer MEDICARE, SELFPAY ==
--- NOTE | 2025-04-04 07:55 | PM.CN ---
Consult Note: HPI Data of Consult Patient: known to practice within the last 3 years Requesting Physician: Nisa Galarza NP Primary Care Provider: TRUE DAVIS Consult Narrative Reason for consult: f/u Narrative: Angela Ruth a 79 year old female presents for evaluation of chronic back pain unresponsive to greater than 6 weeks of PT/HEP, ice, heat, tylenol and NSAIDs. pain secondary to lumbar DDD, lumbar spondylosis, sacroilitis. Hx of lumbar surgery. utilizing Tylenol, aleve, butrans and methocarbamol with benefit without side effects. denies recent falls. Pain today 8/10 sharp in middle back as well as low back and right leg. denies falls since last visit. did attend additional PT for 4 weeks since last visit with improvement in ability in balance. cc:: CC: Nisa Galarza NP Review of Systems ROS Status of ROS 10 or more systems reviewed and unremarkable except as noted in history and below Musculoskeletal Reports: back pain, extremity pain and joint pain PFSH PFSH Medical History TMJ (dislocation of temporomandibular joint) ?S03.00XA - Dislocation of jaw, unspecified side, initial encounter (ICD-10) Neck pain ?M54.2 - Cervicalgia (ICD-10) Back pain ?M54.9 - Dorsalgia, unspecified (ICD-10) Osteoarthritis ?M19.90 - Unspecified osteoarthritis, unspecified site (ICD-10) H/O psychiatric care ?Z92.89 - Personal history of other medical treatment (ICD-10) Heartburn ?R12 - Heartburn (ICD-10) Acid reflux ?K21.9 - Gastro-esophageal reflux disease without esophagitis (ICD-10) Hypothyroid ?E03.9 - Hypothyroidism, unspecified (ICD-10) Kidney stones ?N20.0 - Calculus of kidney (ICD-10) Asthma ?J45.909 - Unspecified asthma, uncomplicated (ICD-10) High cholesterol ?E78.00 - Pure hypercholesterolemia, unspecified (ICD-10) Hypertension ?I10 - Essential (primary) hypertension (ICD-10) Surgical History H/O shoulder surgery ?Z98.890 - Other specified postprocedural states (ICD-10) H/O excision of hemangioma ?Z98.890 - Other specified postprocedural states (ICD-10) ?Z86.018 - Personal history of other benign neoplasm (ICD-10) H/O basal cell carcinoma excision ?Z98.890 - Other specified postprocedural states (ICD-10) ?Z85.828 - Personal history of other malignant neoplasm of skin (ICD-10) H/O lumbosacral spine surgery ?Z98.890 - Other specified postprocedural states (ICD-10) H/O foot surgery ?Z98.890 - Other specified postprocedural states (ICD-10) H/O hand surgery ?Z98.890 - Other specified postprocedural states (ICD-10) H/O wrist surgery ?Z98.890 - Other specified postprocedural states (ICD-10) History of cholecystectomy ?Z90.49 - Acquired absence of other specified parts of digestive tract (ICD-10) H/O breast biopsy ?Z98.890 - Other specified postprocedural states (ICD-10) History of appendectomy ?Z90.49 - Acquired absence of other specified parts of digestive tract (ICD-10) History of tonsillectomy and adenoidectomy ?Z90.89 - Acquired absence of other organs (ICD-10) Meds Home Medications and Allergies Home Medications ?Medication ?Instructions ?Recorded ?Confirmed ?Type acetaminophen 650 mg 1,300 mg PO Q8H PRN pain 07/07/23 12/18/24 History tablet,extended release (Arthritis Pain Relief (acetaminophen) ER) albuterol 90 mcg/actuation aerosol 90 mcg inhalation .every 4 hours 07/07/23 12/18/24 History inhaler PRN shortness of breath or wheezing alendronate 35 mg tablet 70 mg PO QWEEK 07/07/23 12/18/24 History ascorbic acid (vitamin C) 500 mg 500 mg PO BID 07/07/23 12/18/24 History tablet,extended release (C Complex) aspirin 81 mg tablet,delayed 81 mg PO DAILY 07/07/23 12/18/24 History release (Adult Aspirin Regimen) atorvastatin 40 mg tablet 40 mg PO DAILY 07/07/23 12/18/24 History calcium carbonate (Calcium 600) 600 mg PO DAILY 07/07/23 12/18/24 History carvedilol 25 mg tablet 25 mg PO BID 07/07/23 12/18/24 History cholecalciferol (vitamin D3) 50 200 mcg PO DAILY 07/07/23 12/18/24 History mcg (2,000 unit) tablet (Vitamin D3) escitalopram oxalate 20 mg tablet 20 mg PO DAILY 07/07/23 12/18/24 History fenofibrate 160 mg tablet 160 mg PO DAILY 07/07/23 12/18/24 History fexofenadine 180 mg tablet 180 mg PO DAILY 07/07/23 12/18/24 History hydralazine 100 mg tablet 100 mg PO TID 07/07/23 12/18/24 History levothyroxine 150 mcg capsule 150 mcg PO DAILY 07/07/23 12/18/24 History lisinopril 20 1 tab PO DAILY 07/07/23 12/18/24 History mg-hydrochlorothiazide 12.5 mg tablet magnesium 250 mg tablet 250 mg PO DAILY 07/07/23 12/18/24 History pnikipmc-zmk-undxo acid 0.4 1 tab PO DAILY 07/07/23 12/18/24 History mg-lycopene 300 mcg-lutein 250 mcg tablet (Centrum Silver) omeprazole 40 mg capsule,delayed 40 mg PO DAILY 07/07/23 12/18/24 History release oxybutynin chloride 10 mg 10 mg PO DAILY 07/07/23 12/18/24 History tablet,extended release 24 hr buprenorphine 7.5 mcg/hour weekly 1 patch transdermal Q7D PRN pain 11/02/24 12/18/24 Rx transdermal patch (Butrans) #4 ea methocarbamol 500 mg tablet See Rx Instructions .Route 12/07/24 12/18/24 Rx .COMPLEX PRN spasms #120 tabs buprenorphine 7.5 mcg/hour weekly 1 patch transdermal Q7D #4 ea 01/03/25 Rx transdermal patch (Butrans) buprenorphine 7.5 mcg/hour weekly 1 patch transdermal Q7D #4 ea 02/01/25 Rx transdermal patch (Butrans) methocarbamol 500 mg tablet See Rx Instructions .Route 02/01/25 Rx .COMPLEX PRN spasms #120 tabs buprenorphine 7.5 mcg/hour weekly 1 patch transdermal Q7D #4 ea 03/09/25 Rx transdermal patch (Butrans) Allergies Allergy/AdvReac Type Severity Reaction Status Date / Time adhesive tape Allergy unknown Verified 12/18/24 08:54 Influenza Virus Vaccines Allergy unknown Verified 12/18/24 08:54 lincomycin (From Lincocin) Allergy Unknown Verified 12/18/24 08:54 Penicillins Allergy Unknown Verified 12/18/24 08:54 Exam Constitutional Documenting provider has reviewed patient's vital signs: yes Common normals: no apparent distress, oriented x3, healthy appearing, alert and well nourished General appearance: cooperative HENMT Common normals: normocephalic, hearing grossly normal bilaterally and moist oral mucous membranes Head and scalp: normocephalic Eye Common normals: PERRL Pupil: PERRL Neck & C-Spine Common normals: full ROM General: normal visual inspection Other: negative facet loading, negative spurlings, strength 5/5 in BUE Chest Common normals: inspection of chest normal Respiratory Common normals: normal respiratory effort, no retractions and no use of accessory muscles Back & Pelvis Lumbar spine/lower back: ROM limited, pain with ROM and straight leg raise positive right Sacroiliac joints: SI joint(s) abnormal Other: right SIJ positive eri(patricks), gaenslens, thigh thrust, compression test strength 4/5 in RLE and 5/5 in LLE decreased sensation to right L4,5,S1 Extremity Other: no pain with internal and external log roll of right hip Neuro Common normals: oriented x3 and CN's II-XII intact bilaterally Sensorium/orientation: alert Motor exam: no movement abnormalities noted Psych Common normals: mental status grossly normal, thought process normal, cooperative, affect normal, speech normal and activity/motor behavior normal Speech: normal speech Thought process: normal thought process Results Additional Findings Additional findings: If on a controlled substance or opioids, I have checked an [place]AR[place] report on this patient and there are no aberrancies noted in the prescribing history.??If on a controlled substance or opioid a drug screen was completed and reviewed within the last year, and if there has not been a drug screen completed we ordered one today to monitor higher risk, state monitored pain medication use. As part of providing excellent, safe, comprehensive care, the following was completed at our patient's visit: 1. A medication reconciliation and review to ensure accurate knowledge of current/active medications, including asking our patients to inform us about any gmst-iss-klzrdfn medications or herbal remedies/nutritional supplements/alternative remedies. 2. A review to specifically ensure our patients have had annual screening for screening for depression, screening for tobacco use, and screening for unhealthy alcohol use. For concerning screenings had a discussion with the patient, provided patient education, and recommended follow-up with primary care provider when appropriate. If patient noted with a risk of falling, they received education on strength, gait, and balance training to prevent future risk of falling. Portions of this note may have been carried over from the previous visit and updated as appropriate. Please note this office utilizes paper charting in addition to the electronic medical record. A list of current medications, vitals, and PMH is available there as the clinical staff outside of myself do not have access to [employer] charting during the clinic day operations. As part of providing quality comprehensive care the current medications, vitals, and PMH were reviewed in the paper chart. Assessment and Plan Assessment and Plan (1) Lumbar radiculopathy: Assessment and Plan: The patient has had over 3 months of moderate to severe low back and right leg pain with functional impairment and inadequate response to conservative care including NSAIDS (unless there are contraindication such as concurrent blood thinners), multiple oral or topical pain medications, and home exercise program/physical therapy.? Patient has completed >6 weeks of guided home exercise program and/or formal physical therapy program without relief of their symptoms.? The Oswestry Disability Index was completed, and the patient scored a 41%.? The patient noted the following:?? moderate to severe pain with ADLs, sitting, standing, walking, social life, travel, and sleep We discussed the risks and benefits of the procedure with the patient, and we are NOT planning on using sedation as outlined in the guidelines from Medicare unless there is a documented reason that sedation would be strongly recommended.??The procedure will be completed with fluoroscopic guidance.? (2) Lumbar stenosis with neurogenic claudication: (3) Sacroiliitis: (4) Myofascial pain: (5) Chronic prescription opiate use: Assessment and Plan: I feel these medications are improving the patient's quality of life and allow them to tolerate activities of daily living as well as participate in recreational activity.? The patient does not report intolerable side effects. The patient is NOT opioid naive and non-pharmacologic and non-opioid treatment has failed to significantly relieve the patient's pain and improve functionality. The patient has a diagnosis that is related to a somatic or visceral pain etiology. ? ?? I reviewed with the patient the potential risks and side effects with the use of? opioid medications including but not limited to respiratory depression,? sedation, and even . I advised the patient to avoid the use of any other? sedation substances including alcohol, THC, and benzodiazepines while? taking opioid medications due to the risk of compounding side effects and? detrimental outcomes. within the last 12 months I have reviewed the MUSIC EDUCATOR, pain treatment agreement and urine drug screen.? ?? A drug screen was completed within the last year, and no aberrancies were noted regarding their use of controlled substances. The patient understands they are subject to the terms and conditions of the pain contract that they have signed. ? ?? I have checked an OARRS report on this patient today and there are no aberrancies noted in the prescribing history.? (6) Lumbar postlaminectomy syndrome: Plan repeat right L4-5 L5-S1 TFESI, prior injection provided >50% improvement for 3 months declining spinal cord stimulator trial at this time continue current medications, risks vs benefits reviewed continue HEP as tolerated, continue to utilize cane f/u 2 weeks after NACHO
--- OUTSIDE RECORDS SUMMARY | 2025-04-04 08:04 | XMS_ITS | CCD ---
Author Organization [facility] Team Providers Care Business Information Manager Name Role Phone LENNY PEDRAZA Unavailable Unavailable AUDREY HORN Unavailable Unavailable AUDREY HORN Unavailable Unavailable LENNY PEDRAZA Unavailable Unavailable NASH, BIA F Primary Care Unavailable NASH, BIA F Primary Care Unavailable Jacob Viveros Unavailable Unavailable Bia Cao MD Primary Care Provider [phone] (Hist), No Pcp Primary Care Provider UnavailIleana Paris MD Unavailable [phone] Ileana Cortes MD Unavailable [phone] ROSE VELASQUEZ Attending Unavailable HOOVER MANDI F Referring Unavailable HOOVERMANDI Attending Unavailable HOOVERMANDI Referring Unavailable Jacob Viveros Unavailable Unavailable Bia Cao MD Primary Care Provider Bia Cao MD Unavailable MARIA C KRAMER Attending Unavailable NASH, [...] Primary Care Unavailable ILEANA CORTES Attending Unavailable WILLIAN YOANNA Referring Unavailable NASH, BIA F Primary Care Unavailable NASH, BIA F Referring Unavailable NASH, BIA F Primary Care Unavailable MARIA C KRAMER Attending Unavailable NASH, BIA F Referring Unavailable NASH, BIA F Primary Care Unavailable Jade GARCIA, Adelfo Arredondo Attending Unavailable Jade GARCIA, Adelfo Arredondo Attending Unavailable Giedraitis , Andrius Arredondo Attending Unavailable Giedraitis , Andrius Arredondo Attending Unavailable Giedraitis , Andrius Arredondo Attending Unavailable Giedraitis , Andrius Arredondo Attending Unavailable Giedraitis , Andrius Arredondo Attending Unavailable Giedraitis , Andrius Arredondo Attending Unavailable Giedraitis , Adelfo Arredondo Attending Unavailable Nash GARCIA, Bia Anny Primary Care Provider BIA CAO Anny Attending Unavailable KATERIN ALVARADO Attending Unavailable TAE HARDY Referring Unavailable NASH, BIA F Attending Unavailable NASH, BIA F Attending Unavailable NASH, BIA F Attending Unavailable NASH, BIA F Referring Unavailable NASH, BIA F Referring Unavailable NASH, BIA F Referring Unavailable NASH, BIA F Referring Unavailable NASH, BIA F Attending Unavailable NASH, BIA Anny Attending Unavailable TRACI FLORES Attending Unavailable NASHBIA F Attending Unavailable NASH, BIA F Referring Unavailable NASH, BIA Mccormick Attending Unavailable NASH, BIA Anny Attending Unavailable SANTO CHRISTIANSON Attending Unavailable NASH, BIA Mccormick Attending Unavailable GUNDABOLU, JOHN Attending Unavailable NASH, BIA F Referring Unavailable NASH, BIA F Primary Care Unavailable YOANNA DORSEY Attending Unavailable NASH, BIA F Referring Unavailable NASH, BIA F Primary Care Unavailable RANDALL JAUREGUI I Attending Unavailable NASH, BIA F Referring Unavailable [...] Primary Care Unavailable TISHA GALLAGHER Attending Unavailable GIEDRAITIS V, ANDRIUS Referring Unavailkwasi e BIA CAO Primary Care Unavailable JOHN JOHNSON Referring Unavailable BIA CAO Primary Care Unavailable Allergies Allergy Classification Reported Allergen(s) Allergy Type Date of Onset Reaction(s) Facility Amoxicillin / Clavulanate (1 source) Amoxicillin / Clavulanate Drug Allergy 08-14-20 11 Rash [facility] Aspartame (1 source) Aspartame Drug Allergy 02-13-20 17 Other: See Comments [facility] Clavulanate (1 source) Clavulanate Drug Allergy 02-13-20 17 Rash [facility] egg white (chicken) allergenic extract (1 source) egg white (chicken) allergenic extract Drug Allergy 08-14-20 11 Swelling [facility] Lincomycin (1 source) Lincomycin Drug Allergy 11-04-20 16 [facility] NSAIDs (1 source) oxaprozin Drug Allergy 11-04-20 16 [facility] Penicillins (antibiotic) (1 source) Penicillins Drug Allergy 11-04-20 16 [facility] (20 sources) Aspartame; Translations: [ASPARTAME] Drug Allergy 02-13-20 17 Unknown [facility] (20 sources) Clavulanate; Translations: [CLAVULANIC ACID] Drug Allergy 02-13-20 17 Rash [facility] (20 sources) Indomethacin; Translations: [INDOMETHACIN] Drug Allergy 05-02-20 21 Unknown, Hypotension [facility] (20 sources) Influenza Vaccines Drug Allergy 06-04-20 23 Rash [facility] (20 sources) Lincomycin; Translations: [LINCOMYCIN] Drug Allergy 08-14-20 11 Anaphylaxis, Rash [facility] (20 sources) Lincomycin Drug Allergy 12-01-19 22 Unknown [facility] (20 sources) Penicillins; Translations: [PENICILLINS] Drug Allergy 11-04-20 16 [facility] (20 sources) Sulfamethoxazole / Trimethoprim; Translations: [SULFAMETHOXAZOLE-T RIMETHOPRIM] Drug Allergy 10-22-20 23 Hives [facility] (20 sources) Sulfonamides (Antibiotic) Drug Intolerance 11-11-20 22 Hives [facility] (20 sources) Amoxicillin-Pot Clavulanate; Translations: [AMOXICILLIN-POT CLAVULANATE] Drug Allergy 08-14-20 11 [facility] Work Phone: (20 sources) Clemizole; Translations: [CLEMIZOLE] Propensity to adverse reactions 02-13-20 17 Rash [facility] (6 sources) Eggs Or Egg-Derived Products Drug Allergy 08-14-20 11 Swelling, Unknown [facility] (20 sources) Other; Translations: [OTHER] Propensity to adverse reactions 02-13-20 17 Swelling, Other (See Comments) [facility] Work Phone: (20 sources) Poultry Meal Propensity to adverse reactions 03-02-20 23 [facility] (20 sources) Wound Dressing Adhesive Drug Allergy 06-04-20 23 Rash [facility] (20 sources) Adhesive agent; Translations: [ADHESIVE] Drug Allergy 11-04-20 16 Other: See Comments [facility] Work Phone: (18 sources) Aspartame Drug Allergy 02-13-20 17 Other: See Comments, Other (See Comments) [facility] (20 sources) Clindamycin; Translations: [LINCOSAMIDES] Drug Allergy 02-13-20 17 Anaphylaxis [facility] (6 sources) egg white (chicken) allergenic extract; Translations: [EGG WHITE] Drug Allergy 08-14-20 11 Swelling [facility] (20 sources) oxaprozin; Translations: [OXAPROZIN] Drug Allergy 11-04-20 16 Rash [facility] (11 sources) Penicillins Drug Allergy 11-04-20 16 Rash [facility] (20 sources) Influenza Virus Vaccines; Translations: [INFLUENZA VIRUS VACCINES] Drug Allergy 02-13-20 17 Swelling [facility] (20 sources) Egg-Derived Products Drug Allergy 08-14-20 11 Swelling, Unknown [facility] (16 sources) egg shell membrane; Translations: [EGGSHELL MEMBRANE] Propensity to adverse reactions to drug 11-04-20 16 [facility] (3 sources) chicken allergenic extract; Translations: [POULTRY] Drug Allergy 03-02-20 23 [facility] (3 sources) Sulfonamides (Antibiotic); Translations: [SULFA (SULFONAMIDE ANTIBIOTICS)] Propensity to adverse reactions to drug (disorder) 11-11-20 22 [facility] (3 sources) Penicillins Propensity to adverse reactions to drug 11-04-20 16 Rash [facility] (5 sources) [id number] Antimigraine Agents; Translations: [[id number] ANTIMIGRAINE AGENTS] Propensity to adverse reactions to drug 02-20-20 25 [facility] Current Medications Medication Drug Class(es) Dates Sig (Normalized) Sig (Original) acetaminophen 500 mg oral tablet (19 sources) take 2 tablets by mouth every [...] mg / caffeine 65 mg oral tablet (13 sources) Platelet Aggregation Inhibitor, Nonsteroidal Anti-inflammatory Drug, Central Nervous System Stimulant, Methylxanthine take 1 tablet by mouth every six hours as needed for headache yncoerm-luhwqmcotybyw-doyfteqj (EXCEDRIN MIGRAINE) 250-250-65 mg per tablet Take 1 tablet by mouth every 6 (six) hours as needed for headaches. Active acetaminophen 325 mg / dichloralphenazone 100 mg / isometheptene 65 mg oral capsule (6 sources) take 1 capsule by mouth every six hours as needed acetaminophen-dichloralphenazone -isometheptene (MIDRIN) 65-100-325 mg per capsule 1 capsule four times daily as needed. Active [id number] 200 actuat albuterol 0.09 mg/actuat metered dose inhaler (20 sources) beta2-Adrenergic Agonist St ar t: take 2 puff(s) by inhalation every four hours albuterol HFA 90 mcg/act inhaler Indications: Mild intermittent asthma without complication (CMS/HCC) Inhale 2 puffs every 4 (four) hours. 18 g 06/04/2023 Active Start: 09-30-2017 PROAIR HFA 90 mcg/actuation inhaler as needed. 0 09/30/2017 Active take 2 puff(s) by in halation every four hours as needed for wheezing albuterol (PROVENTIL HFA;VENTOLIN HFA) 90 mcg/actuation inhaler Inhale 2 puffs every 4 (four) hours as needed for wheezing or shortness of breath. PRO AIR Active alendronic acid 70 mg oral tablet (20 sources) Bisphosphonate Start: 01-25-2024 End: 02-12-2025 alendronate (FOSAMAX) 70 mg tablet Take 1 tablet (70 mg total) by mouth every 7 days. 01/25/2024 02/12/2025 Discontinued Start: 01-25-2024 take 1 tablet by margo th every week alendronate (FOSAMAX) 70 mg tablet Take 70 mg by mouth one time a week. 01/25/2024 Active take 1 tablet by margo th [...] sources) HMG-CoA Reductase Inhibitor Start: 2016 End: 2024 take 1 tablet by mouth once daily atorvastatin (Lipitor) 40 MG tablet Indications: Mixed hyperlipidemia (CMS/HCC) Take 1 tablet (40 mg) by mouth Daily 90 tablet 3 01/03/2025 Active azithromycin 250 mg oral tablet (2 sources) Macrolide Antimicrobial Start: 2024 End: 2024 take 2 tablets by mouth once daily, then take 1 tablet by mouth once daily azithromycin (Zithromax) 250 MG tablet Indications: Acute bronchitis, unspecified organism Take 2 tablets (500 mg) by mouth Daily for 1 day, THEN 1 tablet (250 mg) Daily for 4 days. 6 tablet 01/23/2025 01/27/2025 Active benzonatate 200 mg oral capsule (2 sources) Non-narcotic Antitussive Start: 2024 End: 2024 take 1 capsule by mouth three times daily as needed for cough benzonatate (Tessalon) 200 MG capsule Indications: Influenza A Take 1 capsule (200 mg) by mouth 3 (three) times a day as needed for cough for up to 7 days Do not crush or chew. 20 capsule 01/15/2025 01/22/2025 Active 168 hr buprenorphine 0.0075 mg/hr transdermal [...] 12 (twelve) hours 200 tablet 3 01/12/2024 Active Start: 12-04-2022 End: 02-06-2026 take 1 tablet by mouth in the morning carvedilol (Coreg) 25 MG tablet Indications: Essential hypertension (CMS/HCC) Take 1 tablet (25 mg) by mouth in the morning and 1 tablet (25 mg) before bedtime. 180 tablet 3 02/06/2025 02/06/2026 Active Start: 01-24-2018 take 1 tablet by [...] levels. Active ciprofloxacin 500 mg oral tablet (6 sources) Quinolone Antimicrobial Start: 01-26-2025 End: 02-02-2025 take 1 tablet by mouth in the morning ciprofloxacin (Cipro) 500 MG tablet Indications: Acute cystitis without hematuria Take 1 tablet (500 mg) by mouth in the morning and 1 tablet (500 mg) before bedtime. Do all this for 7 days. 14 tablet 01/26/2025 02/02/2025 Active Start: 07-03-2024 End: 07-18-2024 take 1 tablet by mouth in the morning ciprofloxacin (Cipro) 500 MG tablet Indications: Acute cystitis without hematuria Take 1 tablet (500 mg) by mouth in the morning and 1 tablet (500 mg) before bedtime. Do all this for 7 days. 14 tablet 07/11/2024 07/18/2024 Active cyclobenzaprine hydrochloride 5 mg oral tablet (6 [...] evening. Take with meals 100 tablet 3 01/03/2025 01/03/2026 Active esomeprazole 40 mg delayed release oral [...] 325 mg oral tablet (20 sources) Start: 01-18-2024 End: 11-29-2025 take 1 tablet [...] dose nasal spray (20 sources) Corticosteroid Start: 08-23-2023 End: 08-22-2024 take 1-2 spray(s) nasal route in the morning fluticasone (Flonase) 50 MCG/ACT nasal spray Indications: Allergic rhinitis due to pollen, unspecified seasonality Administer 1-2 sprays into each nostril in the morning. Shake gently. Before first use, prime pump. After use, clean tip and replace cap.. 16 g 2 08/23/2023 Active hydrALAZINE hydrochloride 100 mg oral tablet (20 sources) Arteriolar Vasodilator Start: 07-26-2023 End: 02-19-2026 take 1 tablet by mouth in the morning hydrALAZINE (Apresoline) 100 MG tablet Indications: Essential hypertension (CMS/HCC) Take 1 tablet (100 mg) by mouth in the morning. 90 tablet 3 02/19/2025 02/19/2026 Active hydrALAZINE (Apr esoline) 50 MG tablet Take 50 mg by mouth Only if bp is above 170, an hour after taking 100mg hydralazine. Active hydroCHLOROthiazide 12.5 mg / lisinopril 20 mg oral tablet (20 sources) Thiazide Diuretic, Angiotensin Converting Enzyme Inhibitor Start: 12-06-2023 take 1 tablet by mouth in the morning lisinopril-hydroCHLOROthiazide 20-12.5 MG tablet Indications: Essential hypertension (CMS/HCC) TAKE 1 TABLET BY MOUTH IN THE MORNING 90 tablet 12/26/2024 Active Start: 06-01-2023 take 1 tablet by [...] 05/10/2024 Active L.acidoph/B.animalis/B.longu m (FLORAJEN DIGESTION ORAL) (13 sources) take 1 tablet by mouth in the morning L.acidoph/B.animalis/B.longum (FLORAJEN DIGESTION ORAL) Take 1 tablet by mouth in the morning. Active lactobacillus acidophilus 16 mg oral capsule (20 sources) Lactobacillus (Anny carbajal Women) capsule as directed Orally Active levothyroxine sodium 0.15 mg oral tablet (20 sources) l lavernox george Star t: 01-11 End: 11-22 take 1 tablet by mouth in the [...] by mouth in the morning. 0 Active magnesium gluconate 500 mg oral [...] mirabegron 50 mg extended release oral tablet (11 sources) beta3-Adrenergic Agonist Start: 12-19-19 take 1 tablet by mouth every twenty-four hours in the morning mirabegron (MYRBETRIQ) 50 mg tablet extended release 24 hr Take 1 tablet (50 mg total) by mouth in the morning. 30 tablet 12/19/2024 Active mirtazapine 15 mg oral tablet (18 sources) Start: 12-26-19 End: 06-24-20 25 take 1 tablet by [...] 11 12/12/2024 03/26/2028 Active Start: 12-02-2016 omeprazole (VT ILOSEC) 20 mg capsule 20 mg once daily. 12/02/2016 Active oseltamivir 75 mg oral capsule (2 sources) Neuraminidase Inhibitor Start: 01-15-2025 End: 01-20-2025 take 1 capsule by mouth in the morning oseltamivir (Tamiflu) 75 MG capsule Indications: Influenza A Take 1 capsule (75 mg) by mouth in the morning and 1 capsule (75 mg) before bedtime. Do all this for 5 days. 10 capsule 01/15/2025 01/20/2025 Active 24 hr oxybutynin chloride 10 mg extended release oral tablet (20 sources) Cholinergic Muscarinic Antagonist Start: 11-21-2020 End: 01-31-2025 take 1 tablet by mouth once daily oxybutynin XL (Ditropan-XL) 10 MG 24 hr tablet Indications: Stress incontinence of urine Take 1 tablet (10 mg) by mouth Daily 90 tablet 3 01/31/2025 Active Start: 11-21-2020 End: 01-03-2024 take 1 tablet by mouth every twenty-four hours oxybutynin ER (DITROPAN XL) 10 mg 24 hr tablet Take 10 mg by mouth. 11/21/2020 Active polyethylene glycol 3350 09408 mg powder for oral solution (3 sources) Osmotic Laxative Start: 07-10-2024 End: 07-13-2024 polyethylene glycol, PEG, 3350 (MiraLax) 17 GM/SCOOP powder Indications: Chronic idiopathic constipation Take 17 g by mouth Daily for 3 days 527 g 2 07/10/2024 07/13/2024 Active predniSONE 10 mg oral tablet (4 sources) Start: 01-23-2025 End: 01-30-2025 take 1 tablet by mouth four times daily, then take 1 tablet by mouth three times daily, then take 1 tablet by mouth twice daily, then take 1 tablet by mouth once daily predniSONE (Deltasone) 10 MG tablet Indications: Acute bronchitis, unspecified organism Take 1 tablet (10 mg) by mouth 4 (four) times a day for 2 days, THEN 1 tablet (10 mg) 3 (three) times a day for 2 days, THEN 1 tablet (10 mg) 2 (two) times a day for 2 days, THEN 1 tablet (10 mg) Daily for 2 days. 20 tablet 01/23/2025 01/30/2025 Active Start: 08-14-2024 End: 08-19-2024 take 1 tablet by mouth once daily predniSONE (Deltasone) 20 MG tablet Indications: Acute bronchitis, unspecified organism Take 1 tablet (20 mg) by mouth Daily for 5 days 5 tablet 08/14/2024 08/19/2024 Active therapeutic multivitamin (TH ERA VITAMIN) tablet (5 sources) therapeutic mult ivitamin (THERA VITAMIN) tablet Take 1 tablet by mouth. Active therapeutic mult ivitamin (THERA VITAMIN) tablet Take 1 tablet by mouth. 0 Active therapeutic multivitamin (THERAGRAN) tablet (13 sources) take 1 tablet by mouth once daily at dinner therapeutic multivitamin (THERAGRAN) tablet Take 1 tablet by mouth daily with dinner. Active topiramate 100 mg oral tablet (6 sources) Start: 12-21-19 topiramate (TOPAMAX) 100 mg tablet 300 mg once daily. 100 mg in the A.M and 200 at bedtime 0 12/21/2017 Active ubrogepant 100 mg oral tablet (20 sources) Start: 01-07-20 End: 02-13-20 take 1 tablet by mouth once as needed UBRELVY 100 mg tablet Indications: Migraine without aura and without status migrainosus, not intractable Take 100 mg by mouth once as needed (migraine) for up to 1 dose. 16 tablet 12 02/12/2025 Active verapamil hydrochloride 120 mg extended release oral tablet (6 sources) Calcium Channel To Start: 12-27-19 18 verapamil SR (CALAN SR, ISOPTIN SR) 120 mg CR tablet 1 tablet three times daily. 12/27/2017 Active zafirlukast 20 mg oral tablet (20 sources) Leukotriene Receptor Antagonist Start: 03-22-20 25 take 1 tablet by mouth in the morning zafirlukast (Accolate) 20 MG tablet Indications: Moderate persistent asthma, unspecified whether complicated (CMS/HCC) Take 1 tablet (20 mg) by mouth in the morning and 1 tablet (20 mg) before bedtime. 180 tablet 3 03/22/2025 Active Start: 12-19-2024 End: 03-22-2025 take 1 tablet by mouth in the morning, then take 1 tablet by mouth at bedtime zafirlukast (Accolate) 20 MG tablet Indications: Moderate persistent asthma, unspecified whether complicated (CMS/HCC) TAKE 1 TABLET BY MOUTH IN THE MORNING AND 1 AT BEDTIME 180 tablet 12/19/2024 03/22/2025 Discontinued (Reorder) Start: 01-07-2018 End: 12-14-2024 take 1 tablet [...] (four) hours if needed. 04/23/2023 12/08/2024 Discontinued meclizine hydrochloride 25 mg oral tablet [...] mouth in the morning. 04/23/2023 12/08/2024 Discontinued nitrofurantoin, macrocrystals 25 mg / nitrofurantoin, monohydrate 75 mg oral capsule (7 sources) Nitrofuran Antibacterial Start: 01-01-2025 End: 01-09-2025 take 1 capsule by mouth in the morning nitrofurantoin, macrocrystal-mono hydrate, (Macrobid) 100 MG capsule Indications: Acute cystitis with hematuria Take 1 capsule (100 mg) by mouth in the morning and 1 capsule (100 mg) before bedtime. Do all this for 7 days. 14 capsule 01/01/2025 01/09/2025 Discontinued (Therapy completed) Start: 12-11-2024 End: 12-18-2024 take 1 capsule [...] 7 days. 14 capsule 07/14/2024 07/21/2024 Active romosozumab (12 sources) Start: 03-21-2025 End: 03-21-2025 210 mg, subcutaneous, Once, On Wed03/21/25 at 1045, For 1 dose, Bring to room temp for at least 30min in original container. Give sub-Q into abdomen, thigh, or outer area of upper arm. Give two consecutive SubQ injections of 105 mg each for a total dose of 210 mg. Rotate injection sites. Start: 02-16-2025 End: 02-16-2025 210 mg, subcutaneous, Once, On Wed02/16/25 at 1315, For 1 dose, Bring to room temp for at least 30min in original container. Give sub-Q into abdomen, thigh, or outer area of upper arm. Give two consecutive SubQ injections of 105 mg each for a total dose of 210 mg. Rotate injection sites. Start: 01-12-2025 End: 01-12-2025 210 mg, subcutaneous, Once, On Wed01/12/25 at 1300, For 1 dose, Bring to room temp for at least 30min in original container. Give sub-Q into abdomen, thigh, or outer area of upper arm. Give two consecutive SubQ injections of 105 mg each for a total dose of 210 mg. Rotate injection sites. inject 210 mg by sub cutaneous injection every 30 days romosozumab (Evenity) 105 MG/1.17ML prefilled syringe Inject 210 mg under the skin every 30 (thirty) days Active tiZANidine 4 mg oral tablet (20 sources) Central alpha-2 Adrenergic Agonist End: 12-08-2024 take 1 tablet by mouth once daily tiZANidine (Zanaflex) 4 MG tablet take 0.5 to 2 tablets by mouth nightly 12/08/2024 Discontinued vitamin b12 1 mg sublingual tablet (14 sources) Vitamin B12 Start: 01-18-2024 End: 12-19-2024 take 1 tablet under the tongue in the morning cyanocobalamin (VITAMIN B12) 1,000 mcg tablet, sublingual Place 1 tablet (1,000 mcg total) under the tongue in the morning. 30 tablet 11 01/18/2024 12/19/2024 Discontinued Problems Active Problems Problem Classification Problem Date Documented Da te Episodic/Chronic Abdominal pain (2 sources) Flank pain; Translations: [Unspecified abdominal pain] 01-23-2025 Episodic Acute bronchitis (4 sources) Acute bronchitis; Translations: [Acute bronchitis, unspecified] 08-14-2024 Episodic Anxiety disorders (1 source) Anxiety; Translations: [Anxiety disorder, unspecified] 01-03-2025 Chronic Asthma (20 sources) Asthma; Translations: [Unspecified asthma, [...] of lipid metabolism (20 sources) Hyperlipidemia; Translations: [Hyperlipidemia, unspecified] Onset: 5 06-04-2023 Chronic E Codes: Fall (4 sources) Fall; Translations: [Unspecified fall, subsequent encounter] Onset: 5 12-26-2024 Episodic E Codes: Fall (3 sources) Fall Onset: 5 12-26-2024 Esophageal disorders (20 sources) Gastroesophageal reflux disease without esophagitis; Translations: [Gastro-esophageal reflux disease without esophagitis] Onset: 1 06-04-2023 Chronic Essential hypertension (20 sources) Essential hypertension; Translations: [Essential (primary) hypertension] Onset: 3 06-04-2023 Chronic Fracture of upper limb (1 source) [...] 06-04-2023 Chronic Genitourinary symptoms and ill-defined conditions (8 sources) Dysuria; Translations: [Dysuria] Onset: 4 07-10-2024 Episodic Influenza (2 sources) Influenza due to Influenza A virus; Translations: [Influenza due to other identified influenza virus with other respiratory manifestations] 01-15-2025 Episodic Miscellaneous mental health disorders (20 sources) Primary insomnia; Translations: [Primary insomnia] Onset: 9 06-04-2023 Chronic Mood disorders (20 sources) Depressive disorder; Translations: [Other specified depressive episodes] Onset: 7 06-04-2023 Chronic Mycoses (2 sources) Onychomycosis due to dermatophyte ; Translations: [Tinea unguium] 10-30-2024 Episodic Nausea and vomiting (13 sources) Postoperative nausea and vomiting; Translations: [Nausea [...] 06-04-2023 Chronic Other and ill-defined heart disease (13 sources) Diastolic dysfunction; Translations: [Other ill-defined heart diseases] Onset: 1 05-23-2021 Chronic Other and ill-defined heart disease (13 sources) Left ventricular hypertrophy; Translations: [Cardiomegaly] Onset: [...] constipation; Translations: [Chronic idiopathic constipation] Onset: 9 06-04-2023 Chronic Other hereditary and degenerative nervous system conditions (20 sources) Essential tremor; Translations: [Essential tremor] Onset: 9 06-04-2023 Chronic Other hereditary and degenerative nervous system conditions (2 sources) Essential tremor; Translations: [Essential tremor] Onset: 9 Chronic Other lower respiratory disease (2 sources) Cough; Translations: [Acute cough] 01-15-2025 Episodic Other nervous system disorders (1 source) Mass lesion of brain; Translations: [Other specified disorders of brain] 03-28-2024 Chronic Other nervous system disorders (20 sources) Lesion of brain; Translations: [Disorder of brain, unspecified] Onset: 4 02-15-2024 Chronic Other nervous system disorders (13 sources) Chronic pain syndrome; Translations: [Chronic pain syndrome] Onset: 8 2018 Chronic Other nervous system disorders (13 sources) Carpal tunnel syndrome; Translations: [Carpal tunnel syndrome, unspecified upper limb] Onset: 1 10-28-2021 Chronic Other nervous system disorders (1 source) Polyneuropathy, unspecified; Translations: [Polyneuropathy, unspecified] Onset: 4 Chronic Other skin disorders (2 sources) Dystrophia unguium; Translations: [Nail dystrophy] 10-30-2024 Episodic Other upper respiratory disease (2 sources) Allergic rhinitis due to pollen; Translations: [Allergic rhinitis due to pollen] 08-14-2024 Chronic Other upper respiratory disease (8 sources) Hoarse; Translations: [Dysphonia] 08-08-2024 Episodic Other upper respiratory disease (2 sources) Senile voice; Translations: [Other diseases of larynx] 01-09-2025 Episodic Other upper respiratory infections (2 sources) Posterior rhinorrhea; Translations: [Chronic sinusitis, unspecified] 08-08-2024 Chronic Other upper respiratory infections (2 sources) Sore throat symptom; Translations: [Acute pharyngitis, unspecified] 01-15-2025 Episodic Prolapse of female genital organs (6 sources) Midline cystocele; Translations: [Cystocele, midline] Onset: 5 01-23-2025 Chronic Residual codes; unclassified (6 sources) Family history of malignant neoplasm of breast in first degree relative; Translations: [Family history of malignant neoplasm of breast] Onset: 5 01-23-2025 Episodic Residual codes; unclassified (6 sources) Family history of malignant neoplasm of breast at under age 50 in second degree female relative; Translations: [Family history of malignant neoplasm of breast] Onset: 5 01-23-2025 Episodic Residual codes; unclassified (6 sources) Family history of malignant neoplasm of ovary in second degree relative; Translations: [Family history of malignant neoplasm of ovary] Onset: 5 01-23-2025 Episodic Spondylosis; intervertebral disc disorders; other back problems (20 sources) Degeneration of lumbosacral intervertebral disc; Translations: [Other intervertebral disc degeneration, lumbosacral region] Onset: 1 Resolved: 3 06-04-2023 Chronic Thyroid disorders (20 sources) Acquired hypothyroidism; Translations: [Hypothyroidism, unspecified] Onset: 9 06-04-2023 Chronic Unclassified (20 sources) Patient on antidepressant monitoring plan Onset: 4 08-08-2024 Unclassified (1 source) Injection Onset: 5 Unclassified (1 source) EMS Onset: 5 Unclassified (1 source) Low back pain, unspecified; Translations: [Low back pain, unspecified] Onset: 5 Urinary tract infections (6 sources) Acute cystitis; Translations: [Acute cystitis without hematuria] Onset: 5 07-14-2024 Episodic Past or Other Problems Problem Classification Problem Date Documented Da te Episodic/Chronic Acute and unspecified renal failure (13 sources) Acute renal failure syndrome; Translations: [Acute kidney failure, unspecified] Onset: 03-02-2023 03-02-2023 Episodic Acute cerebrovascular disease (13 sources) Hematoma of subdural space of neuraxis; Translations: [SDH (subdural hematoma)] Onset: 01-04-2018 Resolved: 07-01-2021 07-01-2021 Chronic Adjustment disorders (20 sources) Adjustment disorder with anxious mood; Translations: [Adjustment disorder with anxiety] Onset: 05-04-2023 Resolved: 10-24-2023 10-24-2023 Chronic Calculus of urinary tract (20 sources) Kidney stone; Translations: [Calculus of kidney] Onset: 03-02-2023 06-04-2023 Episodic Diabetes mellitus without complication (1 source) Prediabetes; Translations: [Prediabetes] Onset: 01-07-2024 Episodic Headache; including migraine (20 sources) Migraine; Translations: [Migraine, unspecified, not intractable, without status migrainosus] Onset: 12-12-2018 Resolved: 10-24-2023 10-24-2023 Chronic Malaise and fatigue (17 sources) Asthenia; Translations: [Weakness] Onset: 11-04-2016 12-23-2023 Episodic Mood disorders (20 sources) Mood disorders Onset: 12-06-2023 Resolved: 02-12-2025 12-06-2023 Other circulatory disease (13 sources) Low blood pressure; Translations: [Hypotension, unspecified] Onset: 03-02-2023 03-02-2023 Episodic Other connective tissue disease (20 sources) Bilateral trochanteric bursitis; Translations: [Trochanteric bursitis, right hip] Onset: 11-03-2017 06-04-2023 Episodic Other connective tissue disease (20 sources) Recurrent falls ; Translations: [Repeated falls] Onset: 11-01-2017 06-04-2023 Episodic Other connective tissue disease (20 sources) History of lumbar fusion; Translations: [Arthrodesis status] Onset: 12-11-2015 06-04-2023 Episodic Other connective tissue disease (20 sources) Impingement syndrome of right shoulder region; Translations: [Impingement syndrome of right shoulder] Onset: 08-14-2011 05-04-2024 Episodic Other connective tissue disease (13 sources) Muscle spasm of cervical muscle of neck; Translations: [Other muscle spasm] Onset: 05-05-2019 05-05-2019 Episodic Other connective tissue disease (13 sources) Nocturnal muscle spasm ; Translations: [Other muscle spasm] Onset: 06-12-2019 06-12-2019 Episodic Other connective tissue disease (1 source) Other muscle spasm; Translations: [Other muscle spasm] Onset: 06-12-2019 Episodic Other injuries and conditions due to external causes (20 sources) History of fall; Translations: [History of falling] Onset: 11-04-2023 12-23-2023 Episodic Other lower respiratory disease (20 sources) Nodule of lung; Translations: [Solitary pulmonary nodule] Onset: 02-15-2024 02-15-2024 Episodic Other lower respiratory disease (13 sources) Dyspnea; Translations: [Shortness of breath] Onset: 11-06-2019 11-06-2019 Episodic Other nervous system disorders (20 sources) Impairment of balance; Translations: [Other abnormalities of gait and mobility] Onset: 06-12-2019 05-04-2024 Episodic Other nervous system disorders (1 source) Other abnormalities of gait and mobility; Translations: [Other abnormalities of gait and mobility] Onset: 06-12-2019 Episodic Other non-traumatic joint disorders (20 sources) Hip pain; Translations: [Pain in right hip] Onset: 10-13-2017 11-03-2017 Episodic Other screening for suspected conditions (not mental disorders or infectious disease) (2 sources) Other abnormal findings on diagnostic imaging of central nervous system; Translations: [Abnormal level of blood mineral] Onset: 01-07-2024 Episodic Other upper respiratory disease (13 sources) Chronic hoarseness; Translations: [Dysphonia] Onset: 07-24-2020 07-24-2020 Episodic Residual codes; unclassified (1 source) Pain, unspecified; Translations: [Pain, unspecified] Onset: 03-16-2024 Episodic Screening and history of mental health and substance abuse codes (20 sources) H/O: depression; Translations: [Personal history of other mental and behavioral disorders] Onset: 2018 06-04-2023 Episodic Spondylosis; intervertebral disc disorders; other back problems (20 sources) Spinal stenosis of lumbar region; Translations: [Spinal stenosis, lumbar region without neurogenic claudication] Onset: 08-14-2011 Resolved: 10-24-2023 06-04-2023 Episodic Results Test Name Value Interpretation Reference Range Facility CALCIUMon 03-19-2025 Calcium [Mass/Vol] 9.6 mg/dL Normal 8.5-10.[address] [facility] Comment on above: Performed By: #### 1 7861-6, THYR, 59156-6 #### [facility] ([id number]) [address], [address] [place] [address] POCT Urinalysis Auto, W/O Mi croscopyon 02-27-2025 External Poct Urine Blood Negative [facility] External Poct Urine Glucose Negative [facility] External Poct Urine Ketones Negative [facility] External Poct Urine Leukocyte Esterase Negative [facility] External Poct Urine Nitrite Negative [facility] External Poct Urine Ph 5.5 [facility] External Poct Urine Protein 1+ [facility] CALCIUMon 02-14-2025 Calcium [Mass/Vol] 9.3 mg/dL Normal 8.5-10.[address] [facility] Comment on above: Performed By: #### 1 7861-6, THYR, 81230-7 #### [facility] ([id number]) [address], [address] [place] [address] CT ABDOMEN PELVIS WO IV CONT RASTon 02-13-2025 CT ABDOMEN PELVIS WO IV CONTRAST CT ABDOMEN PELVIS WO IV CONTRAST HISTORY: Right flank pain, hematuria, recent urinary tract infection COMPARISON: None. TECHNIQUE: The study consists of helical images obtained through the abdomen and pelvis without the use of intravenous contrast. Coronal and sagittal reformations were reconstructed. The patient tolerated the procedure and there were no immediate complications. FINDINGS: ABDOMEN: VISUALIZED CHEST: Visualized portions of the lungs show no consolidation or effusions. LIVER: No focal mass or intrahepatic biliary dilatation. GALLBLADDER: Removed SPLEEN: No focal masses or enlargement. KIDNEYS: The kidneys are atrophic. Punctate right renal calculi but no hydronephrosis.. ADRENALS: No adrenal mass is seen. PANCREAS: No contour deforming lesions are seen. RETROPERITONEUM: Atheromatous plaque is seen. BOWEL: No abnormally dilated loops of bowel are seen. PELVIS COLON: There is retained stool in the rectum and also to a lesser degree the colon. There are few diverticuli in the distal colon. No acute inflammation identified. PERITONEAL CAVITY: No free fluid or free air. BLADDER: Normal. REPRODUCTIVE ORGANS: No abnormalities. OSSEOUS STRUCTURES: There is an S-shaped rotoscoliosis of the thoracolumbar spine with multilevel severe degenerative disease. Laminectomies and instrumented fusions are noted in the lumbar spine. BODY WALL: No ventral hernia IMPRESSION: Retained colonic stool and rectal stool with diverticulosis coli. No free fluid or acute inflammation. Couple tiny stones in the right renal collecting system but there is no hydronephrosis. Dictated on: 02/13/2025 1:55 PM This report has been electronically signed and approved by the interpreting Radiologist. Normal Not Available Urinalysis macro (dipstick) panel (U)on 01-23-2025 Bilirubin, UA Negative Negative - 4(70) +++ mg/dL [facility] Blood, UA Positive Negative - 50 Darryl/mcL [facility] Clarity, UA Cloudy [facility] Color, UA Yellow [facility] Glucose, UA Negative Negative - 2000(110) ++++ mg/dL [facility] Interpretation and review of laboratory results Abnormal [facility] Ketones, UA Negative Negative - 160(16) ++++ mg/dL [facility] Leukocytes, UA 3+ Negative - 500+++ Obdulio/mcL [facility] Nitrite, UA Positive Negative - Positive [facility] pH, UA 5 5 - 9 [facility] Protein, UA 2+ Negative - 2000(20) ++++ mg/dL [facility] Spec Grav, UA 1.02 1 - 1.03 [facility] Urobilinogen, UA 1.0 0.2 - 12 mg/dL [facility] Laboratory - Microbiology an d Antimicrobial susceptibilityon 01-15-2025 SARS-CoV-2 (COVID-19) RNA MICHAEL+probe Ql (Unsp spec) Negative [facility] No Panel Informationon 01-15 FLU A Positive [facility] FLU B Negative [facility] Interpretation and review of laboratory results Abnormal [facility] CALCIUMon 01-11-2025 Calcium [Mass/Vol] 9.8 mg/dL Normal 8.5-10.[address] [facility] Comment on above: Performed By: #### 1 7861-6, THYR, 32189-2 #### [facility] ([id number]) [address], [address] [place] [address] Urinalysis macro (dipstick) panel (U)on 01-01-2025 Bilirubin, UA Negative Negative - 4(70) +++ mg/dL [facility] Blood, UA Positive Negative - 50 Darryl/mcL [facility] Clarity, UA Cloudy [facility] Color, UA Dark María [facility] Glucose, UA Negative Negative - 2000(110) ++++ mg/dL [facility] Interpretation and review of laboratory results Abnormal [facility] Ketones, UA Negative Negative - 160(16) ++++ mg/dL [facility] Leukocytes, UA 4+ Negative - 500+++ Obdulio/mcL [facility] Nitrite, UA Negative Negative - Positive [facility] pH, UA 5 5 - 9 [facility] Protein, UA 3+ Negative - 2000(20) ++++ mg/dL [facility] Spec Grav, UA 1.02 1 - 1.03 [facility] Urobilinogen, UA 0.2 0.2 - 12 mg/dL [facility] CT BRAIN WO CONTon CT BRAIN WO [...] by Dharmesh Mittal on 12/23/2024 8:53 PM Normal [facility] CT CERVICAL SPINE WO CONTon 12-23-2024 CT [...] Dharmesh Mittal on 12/23/2024 8:44 PM Normal [facility] CT KNEE RT WO CONTon 025 CT [...] Singh MD on 12/23/2024 9:54 PM Normal [facility] XR CHEST 1 VWon 12-23-2024 XR CHEST [...] Negrete MD on 12/23/2024 8:36 PM Normal [facility] XR HIP RT 2-3 VIEWS W OR [...] Dharmesh Mittal on 12/23/2024 8:41 PM Normal [facility] XR KNEE RT 3 VWSon XR KNEE [...] Dharmesh Mittal on 12/23/2024 8:56 PM Normal [facility] XR SHOULDER RT MIN 2 VWSon 0 [...] Mark Keita MD on 12/23/2024 8:26 PM Eileen Trimble MD have personally reviewed the image(s) and agree with and/or edited the report Finalized by Eileen Negrete MD on 12/23/2024 8:31 PM Normal [facility] Laboratory - Miscellaneous t estson 12-10-2024 Service comment (Unsp spec) [Interp] [facility] Comment on above: This urine was adolfo zed for the presence of WBC, RBC, bacteria, casts, and other formed elements. Only those elements seen were reported. No Panel Informationon 12-10 Performing Organization Information Site ID: QPT Name: [facility] Address: [address] [place] [address], [address] [place] [id number] Director: Angel Noble MD [facility] Urinalysis complete panel (U )on 12-10-2024 Appearance (U) TURBID Abnormal CLEAR [facility] Bacteria LM.HPF (Urine sed) [#/Area] MANY Abnormal NONE SEEN /HPF [facility] Bilirubin Ql (U) Negative NEGATIVE [facility] Color (U) YELLOW YELLOW [facility] Epithelial cells.squamous LM.HPF (Urine sed) [#/Area] NONE SEEN < OR = 5 /HPF [facility] Glucose Ql (U) Negative NEGATIVE [facility] Hemoglobin Ql (U) TRACE Abnormal NEGATIVE [facility] Hyaline casts (Urine sed) [#/Area] NONE SEEN NONE SEEN /LPF [facility] Interpretation and review of laboratory results Abnormal [facility] Ketones Ql (U) Negative NEGATIVE [facility] Leukocyte esterase Test strip Ql (U) 3+ Abnormal NEGATIVE [facility] Nitrite Ql (U) Negative NEGATIVE [facility] pH (U) 6.5 [pH] 5.0 - 8.0 [facility] Protein Ql (U) TRACE Abnormal NEGATIVE [facility] RBC LM.HPF (Urine sed) [#/Area] 0-2 < OR = 2 /HPF [facility] Specific gravity (U) [Rel density] 1.017 1.001 - 1.035 [facility] WBC LM.HPF (Urine sed) [#/Area] PACKED Abnormal < OR = 5 /HPF [facility] Urinalysis macro (dipstick) panel (U)on 12-08-2024 Bilirubin, UA Negative Negative - 4(70) +++ mg/dL [facility] Blood, UA Positive Negative - 50 Darryl/mcL [facility] Clarity, UA Cloudy [facility] Color, UA Yellow [facility] Glucose, UA Negative Negative - 2000(110) ++++ mg/dL [facility] Interpretation and review of laboratory results Abnormal [facility] Ketones, UA Negative Negative - 160(16) ++++ mg/dL [facility] Leukocytes, UA 4+ Negative - 500+++ Obdulio/mcL [facility] Nitrite, UA Negative Negative - Positive [facility] pH, UA 6 5 - 9 [facility] Protein, UA 2+ Negative - 2000(20) ++++ mg/dL [facility] Spec Grav, UA 1.01 1 - 1.03 [facility] Urobilinogen, UA 0.2 0.2 - 12 mg/dL [facility] XR SPINE LUMBAR 2 OR 3 VWSon 11-28-2024 XR SPINE LUMBAR 2 OR 3 VWS XR SPINE LUMBAR 2 OR 3 VW History: Pain. Postop follow-up Lumbar spine Comparison: [...] Britney Mendoza MD on 11/28/2024 3:13 PM [facility] 10-04-2024 [facility] Telephone ([facility]) ANGELA RUTH ([id number]) 1945 F Date Time Provider Department 10/04/24 ROSE VELASQUEZ [facility] During your visit today, we recorded the following information about you: Jessica Ashley 10/04/2024 3:20 PM Signed General Call Caller : Angela Contact Reason for Call : Did you speak with Dr. Hoover regarding her most recent appt? Patient requesting return call ? Yes Rose Velasquez APRN.MAHENDRA 10/06/2024 10:09 AM Signed Voicemail left for Angela at [phone]. Call back number given. 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 My note was forward to Dr. Hoover for review. At this time we recommend follow up and new imaging in 1 year. Rose Velasquez, MSN, BOX SEALING MACHINE CATCHER, INVESTMENT COUNSELOR Certified Nurse Practitioner Allergies As of Date: [...] Fully Assessed Reason for Visit: Patient Question [5367] Prescriptions as of 10/06/2024 - hydrALAZINE (APRESOLINE) 100 mg tablet take 1 tablet by mouth twice a day then MAY TAKE ADDITIONAL (50 M... (REFER TO PRESCRIPTION NOTES). - lisinopril-hydroCHLORO thiazide (ZESTORETIC) 20-12.5 mg per tablet Take 1 [...] 20 mg by mouth once daily. - losartan-hydrochloroth iazide (HYZAAR) 100-25 mg per tablet Take 1 [...] mg capsule 20 mg once daily. - acetaminophen-dichlora lphenazone-isomethepte ne (MIDRIN) 65-100-325 mg per capsule 1 capsule [...] Encounter Status:Closed by ROSE VELASQUEZ on 10/06/24 [facility] CNOVon 09-26-2024 CNOV Office Visit ([facility] ) ANGLEA RUTH ([id number]) 1945 F Date Time Provider Department 09/26/24 1:45 PM ROSE VELASQUEZ [facility] During your visit today, we recorded the following information about you: Pulse Blood pressure Weight 91/minute 143/81 67 kg Rose Velasquez, BOX SEALING MACHINE CATCHER.INVESTMENT COUNSELOR 09/26/2024 3:27 PM Signed [facility] BRAIN TUMOR CENTER NEURO-ONCOLOGY OUTPATIENT CLINIC NOTE [...] ADDITIONAL (50 M... (REFER TO PRESCRIPTION NOTES). lisinopril-hydroCHLORO thiazide (ZESTORETIC) 20-12.5 mg per tablet Take 1 [...] Take 20 mg by mouth once daily. losartan-hydrochloroth iazide (HYZAAR) 100-25 mg per tablet Take 1 [...] 20 mg capsule 20 mg once daily. acetaminophen-dichlora lphenazone-isomethepte ne (MIDRIN) 65-100-325 mg per capsule 1 capsule [...] bedtime (Pat (more content not included)... Normal [facility] MR Brain WO and W contrast I Von 09-26-2024 IMPRESSION: Stable size of a RIGHT petrous ridge presumed meningioma compared to 03/02/2024. Configuration Management Architect: ALLYSSA Transcribe Date/Time: Sep 26 2024 2:10P Dictated by : MAUREEN PEARL MD This examination was interpreted and the report reviewed and electronically signed by: MAUREEN PEARL MD on Sep 26 2024 2:14PM [facility] DIVISION OF RADIOLOGY * * *Final Report* * * DATE OF EXAM: Sep 26 2024 12:29PM [facility] 0295 - MRI BRAIN WO/W IVCON [...] tissues otherwise unremarkable. DIVISION OF RADIOLOGY Provider, [facility] - 09/26/2024 * * *Final Report* * * DATE OF EXAM: Sep 26 2024 12:29PM [facility] 0295 - MRI BRAIN WO/W IVCON [...] petrous ridge presumed meningioma compared to 03/02/2024. Configuration Management Architect: PSCB Transcribe Date/Time: Sep 26 2024 2:10P Dictated by : MAUREEN PEARL MD This examination was interpreted and the report reviewed and electronically signed by: MAUREEN PEARL MD on Sep 26 2024 2:14PM EST [facility] Radiology Study observation (narrative) [facility] MR Brain WO and W contrast I VOrdered By: [facility] Provider on 09-26-2024 [facility] MRI BRAIN WO/W IVCONon 09-26 MRI BRAIN WO/W IVCON * * *Final Report* * * DATE OF EXAM: Sep 26 2024 12:29PM [facility] 0295 - MRI BRAIN WO/W IVCON [...] petrous ridge presumed meningioma compared to 03/02/2024. Configuration Management Architect: [facility] EDGEWOODRobert Transcribe Date/Time: Sep 26 2024 2:10P Dictated by : MAUREEN PEARL MD This examination was interpreted and the report reviewed and electronically signed by: MAUREEN PEARL MD on Sep 26 2024 2:14PM EST [id number] Normal [facility] Laboratory - Microbiology an d Antimicrobial susceptibilityon 08-16-2024 SARS-CoV-2 (COVID-19) RNA MICHAEL+probe Ql (Unsp spec) Negative [facility] No Panel Informationon 08-16 FLU A Negative [facility] FLU B Negative [facility] Healthcare Interpretation and review of laboratory results Normal [facility] Healthcare [facility] XR Thoracic spine 3 Viewson 07-11-2024 EXAM: [...] report is generated using voice recognition reporting (KnowRee). On occasion PowerScribe erroneously drops words from the report or replaces the spoken word with similar sounding words. Please call with any questions/concerns regarding this report.* Dictated and transcribed 07/11/2024tm This report has been electronically signed and [...] report is generated using voice recognition reporting (Atrentacribe). On occasion PowerScribe erroneously drops words from the report or replaces the spoken word with similar sounding words. Please call with any questions/concerns regarding this report.* Dictated and transcribed 07/11/2024 This report has been electronically signed and approved by the interpreting radiologist. Electronically Signed Shubham Almodovar II, M.D. 2024-07-11 10:01:04 [facility] XR Thoracic spine 3 ViewsOrd ered By: Shubham Almodovar on 07-11-2024 [facility] Work Phone: CALCIUMon 07-10-2024 Calcium [Mass/Vol] 9.5 mg/dL Normal 8.5-10.[address] [facility] Comment on above: Performed By: #### 1 7861-6, THYR, 10799-9 #### [facility] ([id number]) [address], [address] [place] [address] THYROID PROFILEon 07-10-2024 Free T4 [Mass/Vol] 1.24 ng/dL Normal 0.61-1.[address] [facility] Comment on above: Performed By: #### 1 7861-6, THYR, 81378-2 #### [facility] ([id number]) [address], [address] [place] [address] TSH 1.37 uIU/mL Normal 0.49-4.67 [facility] Comment on above: Performed By: #### 1 7861-6, THYR, 48123-5 #### [facility] ([id number]) [address], [address] [place] [address] Urinalysis macro (dipstick) panel (U)on 07-10-2024 Bilirubin, UA Negative Negative - 4(70) +++ mg/dL [facility] Blood, UA Positive Negative - 50 Darryl/mcL [facility] Clarity, UA Cloudy [facility] Color, UA Yellow [facility] Glucose, UA Negative Negative - 2000(110) ++++ mg/dL [facility] Interpretation and review of laboratory results Abnormal [facility] Ketones, UA Negative Negative - 160(16) ++++ mg/dL [facility] Leukocytes, UA 3+ Negative - 500+++ Obdulio/mcL [facility] Nitrite, UA Positive Negative - Positive [facility] pH, UA 6.5 5 - 9 [facility] Protein, UA 2+ Negative - 2000(20) ++++ mg/dL [facility] Spec Grav, UA 1.010 1 - 1.03 [facility] Urobilinogen, UA 1.0 0.2 - 12 mg/dL [facility] Vitamin D+Metabolites [Mass/ Vol]on 07-10-2024 VITAMIN D 25 HYD TOT 78.8 ng/mL Normal 30-100 [facility] Comment on above: Result Comment: Vitamin D status 25 [place] Vitamin D Deficiency <20 ng/mL Insufficiency 20-29 ng/mL Sufficiency 30-100 ng/mL Toxicity >100 ng/mL NOTE: A pediatric reference range has not been established by the field crop farming supervisor of this kit. The [place] [employer] recommends a Vitamin D level of = or >20ng/mL in infants and children. Performed By: #### 1 7861-6, THYR, 91105-4 #### [facility] ([id number]) [address], [address] [place] [address] XR THORACIC SPINE 3 VIEWSon 07-10-2024 XR [...] report is generated using voice recognition reporting (Bureaux A Partager). On occasion KnowRee erroneously drops words from the report or replaces the spoken word with similar sounding words. Please call with any questions/concerns regarding this report.* Dictated and transcribed 07/11/2024/tm This report has been electronically signed and approved by the interpreting radiologist. Electronically Signed Shubham Almodovar II, M.D. 2024-07-11 10:01:04 Normal Not Available XR Thoracic spine 3 Viewson 07-10-2024 Radiology Study observation (narrative) [facility] CNOVon 04-04-2024 CNOV Office Visit ([facility] ) ANGELA RUTH ([id number]) 1945 F Date Time Provider Department 04/04/24 [...] Neuro[facility] On[facility] AND [facility] Ne[facility] [place], [facility] CC: Patient Care Team: Bia Cao as PCP ([facility]) Ileana Cortes MD as NI Referring [...] 6 months with a repeat MRI scan ([facility] preference) and clinic visit with one of our skull base team advance practice providers ([facility] preference). - follow up with electric vehicle electrician for hearing loss which is unrelated to [...] Patient is accompanied by her granddaughter (her bus van driver) and great grand daughter). The patient [...] contrast and shows a 1.2 cm R ENROLLMENT MANAGEMENT DIRECTOR contrast-enhancing lesion concerning for either schwannoma or meningioma- no associated mass effect or edema. The patient takes ASA 81 mg daily for cardioprotection per her PCP. The patient has been using a cane for the last 5-6 years. The patient reports that ~6 weeks ago, she walked into her garage door and fell. The patient has not seen an electric vehicle electrician or a vestibular therapist. Past Medical History: [...] Units once (more content not included)... Normal [facility] 03-24-2024 [facility] Telephone (NIQ) ANGELA RUTH ([id number]) 1945 F Date Time Provider Department 03/24/[address] [facility] During your visit today, we recorded the following information about you: Shelli Fletcher 03/24/2024 5:01 PM Signed Referral source: Ileana Cortes MD ([facility]) Reason for visit: consideration of gamma knife for 1.2 cm enhancing lesion at right cerebelloponitine angle with leading differential including vestibular schwannoma and meningioma External records: Sent with referral and pulled from [facility] Triage: Required, forwarded to [facility] by telephone encounter sent to [facility] Scheduling Triage. Financial clearance: Not required to schedule Rose Velasquez APRN.INVESTMENT COUNSELOR 03/28/2024 10:00 AM Signed Time Frame: First available Provider: Kiko Landrum Soni Referring: Ileana Cortes MD Images to be [facility] from [facility] Dx: Right CPA mass Patient: Angela Ruth Address: Angela Ruth [id number] [place] [address] Per Triage: HISTORY OF PRESENT ILLNESS Angela [...] extracranial soft tissues are unremarkable. Rose Velasquez APRN.INVESTMENT COUNSELOR March 28, 2024 Etelvina Trujillo 03/28/2024 10:12 AM Signed Called patient to schedule an appointment. No ans/left message to call the office back. Appointment scheduled: 04/04/2024 10:30 AM (Arrive by 10:15 AM) Mandi Hoover MD [facility] RAMAN Alonso Janette 04/06/2024 10:40 AM Addendum Imaging requested from [facility]. DOS requested: MRI 03/02/2024 CT Scan 02/11 2024 AND 03/09/2023, 02/11/2024. 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 (REFER (more content not included)... Normal [facility] MR BRAIN W AND WO [...] IS VERY IMPORTANT TO YOUR HEALTH. THE [place] [employer] GUIDELINES RECOMMEND THAT WOMEN 40 [...] BY: Bartolome Monson MD Normal Not Available CT Abdomen/Pelvis w + w/o Co ntraston [...] by Felix Dominguez on 12/07/2022 1159 Normal [facility] XR HAND LEFT (MIN 3 [...] Cowart MD 11/07/[address] [facility] XR HAND LEFT (MIN 3 VIEWS) [...] Cowart MD 11/07/[address] [facility] XR Chest 2 Views*on 09-10-20 XR [...] by Bartolome Monson on 09/10/2022 1507 Normal [facility] Complete Blood Count with Au to Diffon 12-11-2021 Basophils (Bld) [#/Vol] 0.07 10*3/uL Normal 0.00-0.20 [facility] Comment on above: Performed By: #### C MP, CBCAD #### [facility] [address] [place] [id number] Basophils/100 WBC (Bld) 0.9 % Normal [facility] Comment on above: Performed By: #### C MP, CBCAD #### [facility] [address] [place], [place] [id number] Eosinophils (Bld) [#/Vol] 0.17 10*3/uL Normal 0.02-0.50 [facility] Comment on above: Performed By: #### C MP, CBCAD #### [facility] [address], [place] [id number] Eosinophils/100 WBC (Bld) 2.3 % Normal [facility] Comment on above: Performed By: #### C MP, CBCAD #### [facility] [address] [place], [place] [id number] Erythrocyte distribution width (RBC) [Ratio] 16.4 % High 11.0-15.0 [facility] Comment on above: Performed By: #### C MP, CBCAD #### [facility] [address], [place] [id number] Hematocrit (Bld) [Volume fraction] 42.9 % Normal 35.0-47.0 [facility] Comment on above: Performed By: #### C MP, CBCAD #### [facility] [address] [place], [place] [id number] Hemoglobin (Bld) [Mass/Vol] 13.5 g/dL Normal 11.6-15.5 [facility] Comment on above: Performed By: #### C MP, CBCAD #### [facility] [address] [place], [place] [id number] Lymphocytes (Bld) [#/Vol] 2.7 10*3/uL Normal 0.9-3.9 [facility] Comment on above: Performed By: #### C MP, CBCAD #### [facility] [address] [place], [place] [id number] Lymphocytes/100 WBC (Bld) 36.1 % Normal [facility] Comment on above: Performed By: #### C MP, CBCAD #### [facility] [address], [place] [id number] MCH (RBC) [Entitic mass] 27.7 pg Normal 27.0-33.0 [facility] Comment on above: Performed By: #### C MP, CBCAD #### [facility] [address], [place] [id number] MCHC (RBC) [Mass/Vol] 31.5 g/dL Low 32.0-36.0 [facility] Comment on above: Performed By: #### C MP, CBCAD #### [facility] [address] [place], [place] [id number] MCV (RBC) [Entitic vol] 88 fL Normal 80-100 [facility] Comment on above: Performed By: #### C MP, CBCAD #### [facility] [address], [place] [id number] Monocytes (Bld) [#/Vol] 0.8 10*3/uL Normal 0.2-0.9 [facility] Comment on above: Performed By: #### C MP, CBCAD #### [facility] [address], [place] [id number] Monocytes/100 WBC (Bld) 10.8 % Normal [facility] Comment on above: Performed By: #### C MP, CBCAD #### [facility] [address], [place] [id number] Neutrophils (Bld) [#/Vol] 3.7 10*3/uL Normal 1.5-7.8 [facility] Comment on above: Performed By: #### C MP, CBCAD #### [facility] [address], [place] [id number] Neutrophils/100 WBC (Bld) 49.2 % Normal [facility] Comment on above: Performed By: #### C MP, CBCAD #### [facility] [address], [place] [id number] Platelet mean volume (Bld) [Entitic vol] 11.00 fL Normal 7.50-12.[address] [facility] Comment on above: Performed By: #### C MP, CBCAD #### [facility] [address] [place], [place] [id number] Platelets (Bld) [#/Vol] 246 10*3/uL Normal 140-400 [facility] Comment on above: Performed By: #### C MP, CBCAD #### [facility] [address], [place] [id number] RBC (Bld) [#/Vol] 4.88 10*6/uL Normal 3.90-5.20 [facility] Comment on above: Performed By: #### C MP, CBCAD #### [facility] [address] [place], [place] [id number] RDW-SD 53.1 fL High 37.0-50.0 [facility] Comment on above: Performed By: #### C MP, CBCAD #### [facility] [address] [place], [place] [id number] WBC (Bld) [#/Vol] 7.5 10*3/uL Normal 3.8-11.0 [facility] Comment on above: Performed By: #### C LG, CBCAD #### [facility] [address] [place], [place] [id number] Comprehensive Metabolic [facility] 12-11-2021 Albumin [Mass/Vol] 4.2 g/dL Normal 3.6-5.1 [facility] Comment on above: Performed By: #### C LG, CBCAD #### [facility] [address], [place] [id number] Albumin/Globulin [Mass ratio] 1.7 {ratio} Normal 1.0-2.5 [facility] Comment on above: Performed By: #### C LG, CBCAD #### [facility] [address], [place] [id number] ALP [Catalytic activity/Vol] 71 U/L Normal 35-119 [facility] Comment on above: Performed By: #### C MP, CBCAD #### [facility] [address], [place] [id number] ALT [Catalytic activity/Vol] 12 U/L Normal 6-33 [facility] Comment on above: Result Comment: 10/22 Female reference range changed. Performed By: #### C LG, CBCAD #### [facility] [address] [place], [place] [id number] Anion gap [Moles/Vol] 18 mmol/L Normal 12-20 [facility] Comment on above: Result Comment: Effjenna ctive 11/27/2019 reference range changed. Performed By: #### C MP, CBCAD #### [facility] [address] [place], [place] [id number] AST [Catalytic activity/Vol] 15 U/L Normal 9-34 [facility] Comment on above: Performed By: #### C MP, CBCAD #### [facility] [address] [place], [place] [id number] Bilirubin [Mass/Vol] 0.33 mg/dL Normal 0.30-1.20 [facility] Comment on above: Performed By: #### C MP, CBCAD #### [facility] [address], [place] [id number] BUN/CREA 35 Ratio High 6-22 [facility] Comment on above: Performed By: #### C MP, CBCAD #### [facility] [address], [place] [id number] Calcium [Mass/Vol] 9.4 mg/dL Normal 8.6-10.2 [facility] Comment on above: Performed By: #### C MP, CBCAD #### [facility] [address], [place] [id number] Chloride [Moles/Vol] 106 mmol/L Normal 98-107 [facility] Comment on above: Performed By: #### C MP, CBCAD #### [facility] [address], [place] [id number] CO2 [Moles/Vol] 24 mmol/L Normal 20-31 [facility] Comment on above: Performed By: #### C MP, CBCAD #### [facility] [address], [place] [id number] Creatinine [Mass/Vol] 0.9 mg/dL Normal 0.6-1.4 [facility] Comment on above: Performed By: #### C MP, CBCAD #### [facility] [address], [place] [id number] eGFRAA 70 mL/min/1.73m2 Normal >60 [facility] Comment on above: Performed By: #### C MP, CBCAD #### [facility] [address], [place] [id number] eGFRNAA 58 mL/min/1.73m2 Low >60 [facility] Comment on above: Performed By: #### C MP, CBCAD #### [facility] [address], [place] [id number] Globulin (S) [Mass/Vol] 2.5 g/dL Normal 1.9-3.7 [facility] Comment on above: Performed By: #### C MP, CBCAD #### [facility] [address] [place], [place] [id number] Glucose [Mass/Vol] 84 mg/dL Normal 65-99 [facility] Comment on above: Result Comment: For FASTING Glucose --- ADA reference ranges: Normal 65-99 mg/dl Prediabetes 100-125 Diabetes >/= 126 Performed By: #### C MP, CBCAD #### [facility] [address] [place], [place] [id number] Potassium [Moles/Vol] 4.3 mmol/L Normal 3.5-5.5 [facility] Comment on above: Performed By: #### C MP, CBCAD #### [facility] [address] [place], [place] [id number] Protein [Mass/Vol] 6.7 g/dL Normal 6.1-8.1 [facility] Comment on above: Performed By: #### C MP, CBCAD #### [facility] [address] [place], [place] [id number] Sodium [Moles/Vol] 143 mmol/L Normal 135-146 [facility] Comment on above: Performed By: #### C MP, CBCAD #### [facility] [address] [place], [place] [id number] Urea nitrogen [Mass/Vol] 33 mg/dL High 7-25 [facility] Comment on above: Performed By: #### C MP, CBCAD #### [facility] [address] [place], [place] [id number] Calciumon 06-20-2019 Calcium [Mass/Vol] 10.0 mg/dL Normal 8.4-10.2 [facility] Comment on above: Performed By: #### 1 030, 1035, 4500, 4510, 4520, 4581 #### [facility] Unless Otherwise Noted [address] [address] / COLA #4724/CLIA # [id number] Creatinineon 06-20-2019 Creatinine [Mass/Vol] 0.9 mg/dL Normal 0.5-1.0 [facility] Comment on above: Performed By: #### 1 030, 1035, 4500, 4510, 4520, 4581 #### [facility] Unless Otherwise Noted [address] [address] / COLA #4724/CLIA # [id number] Creatinine [Mass/Vol] 74.8 Kg Normal [facility] Comment on above: Performed By: #### 1 030, 1035, 4500, 4510, 4520, 4581 #### [facility] Unless Otherwise Noted [address] [address] / COLA #4724/CLIA # [id number] Creatinine [Mass/Vol] 64.8 ml/m1.73 Normal [facility] Comment on above: Performed By: #### 1 030, 1035, 4500, 4510, 4520, 4581 #### [facility] Unless Otherwise Noted [address] [address] / COLA #4724/CLIA # [id number] Creatinine [Mass/Vol] 65.1 ml/m1.73 Normal [facility] Comment on above: Performed By: #### 1 030, 1035, 4500, 4510, 4520, 4581 #### [facility] Unless Otherwise Noted [address] [facility] [address] [place] [address] / [facility] #4724/CLIA # [id number] Creatinine [Mass/Vol] 78.7 ml/m1.73 Normal [facility] Comment on above: Performed By: #### 1 030, 1035, 4500, 4510, 4520, 4581 #### [facility] Unless Otherwise Noted [address] [address] / COLA #4724/CLIA # [id number] FT3on 06-20-2019 FT3 2.80 pg/mL Normal 2.45-5.93 [facility] Diabetes [facility] Comment on above: Performed By: #### 1 030, 1035, 4500, 4510, 4520, 4581 #### [facility] Unless Otherwise Noted [address] [address] / COLA #4724/CLIA # [id number] FT4on 06-20-2019 Free T4 [Mass/Vol] 1.93 ng/dL Normal 0.78-2.44 [facility] Comment on above: Performed By: #### 1 030, 1035, 4500, 4510, 4520, 4581 #### [facility] Unless Otherwise Noted [address] [address] / COLA #4724/CLIA # [id number] TSHon 06-20-2019 TSH Qn 0.57 uIU/ml Normal 0.47-4.68 [facility] Comment on above: Performed By: #### 1 030, 1035, 4500, 4510, 4520, 4581 #### [facility] Unless Otherwise Noted [address] [facility] [address] [place] [address] / COLA #4724/CLIA # [id number] VITAMIN D 25on 06-20-2019 VITAMIN D 25 51.5 ng/ml Normal 30.0-100.0 [facility] Comment on above: Result Comment: Defi cient <20 Insufficient 20-<30 Sufficient 30-100 Potiential Toxicity >100 Performed By: #### 1 030, 1035, 4500, 4510, 4520, 4581 #### [facility] Unless Otherwise Noted [address] [facility] [address] [place] [address] / COLA #4724/CLIA # [id number] Basic Metabolic Profon 05-06 (cont.) Normal [facility] Comment on above: Result Comment: Aver age GFR for 70 or more years old: 75 mL/min/1.73sq mChronic Kidney Disease: <60 mL/min/1.73sq mKidney failure: <15 mL/min/1.73sq meGFR calculated using average adult body mass. Additional eGFR calculator available at:http://www.[employer]/multiple_crcl_2012.htmPerformed at [facility] [address] [place] [address] Performed By: #### C DP, BMP ####[facility] [place] [address] Anion gap 14 mmol/L Normal 9-17 [facility] Comment on above: Performed By: #### C DP, BMP ####[facility] [facility] [place] [address] Calcium 9.6 mg/dL Normal 8.6-10.4 [facility] Comment on above: Performed By: #### C DP, BMP ####[facility] [place] [address] Chloride 106 mmol/L Normal 98-107 [facility] Comment on above: Performed By: #### C DP, BMP ####[facility] [place], [place] [address]jenna [place] [address] CO2 26 mmol/L Normal 20-31 [facility] Comment on above: Performed By: #### C DP, BMP ####[facility] [place], [place] [address] [address] Creatinine 0.91 mg/dL High 0.50-0.90 [facility] Comment on above: Performed By: #### C DP, BMP ####[facility] [place], [place] [address]jenna [place] [address] eGFR (non-black) mL/min/{1.73_m2} Normal >60 [facility] Comment on above: Performed By: #### C DP, BMP ####[facility] [place] [address] Glucose mass conc 99 mg/dL Normal 70-99 [place] Comment on above: Performed By: #### C DP, BMP ####[facility] [place] [address] Potassium molar conc 4.2 mmol/L Normal 3.7-5.3 [facility] Comment on above: Performed By: #### C DP, BMP ####[facility] [place] [address] Sodium 146 mmol/L High 135-144 [facility] Comment on above: Performed By: #### C DP, BMP ####[facility] [place], [place] [address]jenna [place] [address] Urea nitrogen 21 mg/dL Normal 8-23 [facility] Comment on above: Performed By: #### C DP, BMP ####[facility] [place] [address] BUN/CRE Ratio NOT REPORTED Normal 9-20 [facility] Comment on above: Performed By: #### C DP, BMP ####[facility] [place] [address] Staging: NOT REPORTED Normal [facility] Comment on above: Performed By: #### C DP, BMP ####[facility] [place] [address] CBC with Diffon 05-06-2018 Abs. Basophil 0.10 k/uL Normal 0.0-0.2 [facility] Comment on above: Result Comment: Perf ormed at [facility] [address] [place] [address] Performed By: #### C DP, BMP ####[facility] [place] [address] Abs.Neutrophil (Seg) 4.00 k/uL Normal 1.3-9.1 [facility] Comment on above: Performed By: #### C DP, BMP ####[facility] [place] [address] Basophils/100 WBC Auto (Bld) 1 % Normal 0-2 [facility] Comment on above: Performed By: #### C DP, BMP ####[facility] [place] [address] Eosinophils 0.20 10*3/uL Normal 0.0-0.4 [facility] Comment on above: Performed By: #### C DP, BMP ####[facility] [place] [address] Eosinophils/100 leukocytes 2 % Normal 0-4 [facility] Comment on above: Performed By: #### C DP, BMP ####[facility] [place] [address] Erythrocyte distribution width Auto Ratio (RBC) 13.9 % Normal 11.5-14.9 [facility] Comment on above: Performed By: #### C DP, BMP ####[facility] [place] [address].[place] [address] Erythrocytes (RBC) 4.68 10*6/uL Normal 4.0-5.2 [facility] Comment on above: Performed By: #### C DP, BMP ####[address] [place] [address] Hematocrit (HCT) 41.8 % Normal 36-46 [facility] Comment on above: Performed By: #### C DP, BMP ####[facility] [place] [address].[place] [address] Hemoglobin mass conc (Bld) 13.7 g/dL Normal 12.0-16.0 [facility] Comment on above: Performed By: #### C DP, BMP ####[address] [address] Lymphocytes 3.20 10*3/uL Normal 1.0-4.8 [facility] Comment on above: Performed By: #### C DP, BMP ####[address] [place] [address] Lymphocytes/100 leukocytes 39 % Normal 24-44 [facility] Comment on above: Performed By: #### C DP, BMP ####[address] [address] MCH 29.3 pg Normal 26-34 [facility] Comment on above: Performed By: #### C DP, BMP ####[address] [place] [address] MCHC mass conc (RBC) 32.8 g/dL Normal 31-37 [facility] Comment on above: Performed By: #### C DP, BMP ####[facility] [place] [address] MCV 89.3 fL Normal 80-100 [facility] Comment on above: Performed By: #### C DP, BMP ####[facility] [place] [address] Monocytes 0.90 10*3/uL Normal 0.1-1.3 [facility] Comment on above: Performed By: #### C DP, BMP ####[facility] [place] [address] Monocytes/100 leukocytes 11 % High 1-7 [facility] Comment on above: Performed By: #### C DP, BMP ####[facility] [place] [address] Neutrophil (Seg) 47 % Normal 36-66 [facility] Comment on above: Performed By: #### C DP, BMP ####[address] [address] Platelet mean volume (PMV) 10.3 fL Normal 6.0-12.0 [facility] Comment on above: Performed By: #### C DP, BMP ####[address] [address] Platelets 232 10*3/uL Normal 150-450 [facility] Comment on above: Performed By: #### C DP, BMP ####[address] [address] WBC (Leukocytes) 8.4 10*3/uL Normal 3.5-11.0 [place] Comment on above: Performed By: #### C DP, BMP ####[facility] [facility] [address] Auto Diff Performed NOT REPORTED Normal [facility] Comment on above: Performed By: #### C DP, BMP ####[facility] [facility] [place] [address] Erythrocyte morphology NOT REPORTED Normal [facility] Comment on above: Performed By: #### C DP, BMP ####[facility] [place] [address] Erythrocytes (RBC) NOT REPORTED Normal [facility] Comment on above: Performed By: #### C DP, BMP ####[facility] [facility] [place] [address] Granulocytes/100 WBC (Bld) NOT REPORTED Normal 0.00-0.30 [facility] Comment on above: Performed By: #### C DP, BMP ####[facility] [facility] [address] Immature granulocytes #/vol (Bld) NOT REPORTED Normal 0 [facility] Comment on above: Performed By: #### C DP, BMP ####[facility] [place] [address].[place] [address] Platelets NOT REPORTED Normal [facility] Comment on above: Performed By: #### C DP, BMP ####[facility] [place] [address].[place] [address] WBC Morphology NOT REPORTED Normal [facility] Comment on above: Performed By: #### C DP, BMP ####[address] [place] [address] Vital Signs Date Time Vital Sign Value Performing Clinician Facility 03-21-2025 10:37-0400 Body height 157.5 cm Pfo 1 [facility] 03-21-2025 10:37-0400 Body mass index (BMI) [Ratio] 26.95 kg/m2 Pfo 1 [facility] 03-21-2025 10:37-0400 Body temperature 97.81 [degF] Pfo 1 [facility] 03-21-2025 10:37-0400 Body weight 66.86 kg Pfo 1 [facility] 03-21-2025 10:37-0400 Diastolic blood pressure 62 mm[Hg] Pfo 1 [facility] 03-21-2025 10:37-0400 Heart rate 63 /min Pfo 1 [facility] 03-21-2025 10:37-0400 Respiratory rate 15 /min Pfo 1 [facility] 03-21-2025 10:37-0400 SaO2% (BldA) [Mass fraction] 99 % Pfo 1 [facility] 03-21-2025 10:37-0400 Systolic blood pressure 149 mm[Hg] Pfo 1 [facility] 02-27-2025 14:30-0400 Body height 157.5 cm Randall WILKINSON Work Phone: [facility] 02-27-2025 14:30-0400 Body mass index (BMI) [Ratio] 26.89 kg/m2 Randall WILKINSON Work Phone: [facility] 02-27-2025 14:30-0400 Body weight 66.68 kg Randall WILKINSON Work Phone: [facility] 02-27-2025 14:30-0400 Diastolic blood pressure 59 mm[Hg] Randall WILKINSON Work Phone: [facility] 02-27-2025 14:30-0400 Heart rate 85 /min Randall WILKINSON Work Phone: [facility] 02-27-2025 14:30-0400 Systolic blood pressure 97 mm[Hg] Randall WILKINSON Work Phone: [facility] 02-16-2025 13:05-0400 Body height 157.5 cm Pfo 1 [facility] 02-16-2025 13:05-0400 Body mass index (BMI) [Ratio] 27.03 kg/m2 Pfo 1 [facility] 02-16-2025 13:05-0400 Body temperature 98.4 [degF] Pfo 1 [facility] 02-16-2025 13:05-0400 Body weight 67.04 kg Pfo 1 [facility] 02-16-2025 13:05-0400 Diastolic blood pressure 49 mm[Hg] Pfo 1 [facility] 02-16-2025 13:05-0400 Heart rate 85 /min Pfo 1 [facility] 02-16-2025 13:05-0400 Respiratory rate 18 /min Pfo 1 [facility] 02-16-2025 13:05-0400 SaO2% (BldA) [Mass fraction] 96 % Pfo 1 [facility] 02-16-2025 13:05-0400 Systolic blood pressure 123 mm[Hg] Pfo 1 [facility] 02-12-2025 08:08-0400 Body height 157.5 cm Yoanna Dorsey APRN-INVESTMENT COUNSELOR Work Phone: [facility] 02-12-2025 08:08-0400 Body mass index (BMI) [Ratio] 27.22 kg/m2 Yoanna Dorsey BOX SEALING MACHINE CATCHER-INVESTMENT COUNSELOR Work Phone: [facility] 02-12-2025 08:08-0400 Body weight 67.5 kg Yoanna Dorsey APRN-INVESTMENT COUNSELOR Work Phone: [facility] 02-12-2025 08:08-0400 Diastolic blood pressure 78 mm[Hg] Yoanna Dorsey APRN-INVESTMENT COUNSELOR Work Phone: [facility] 02-12-2025 08:08-0400 Heart rate 77 /min Yoanna Dorsey APRN-INVESTMENT COUNSELOR Work Phone: [facility] 02-12-2025 08:08-0400 Systolic blood pressure 116 mm[Hg] Yoanna Dorsey APRN-INVESTMENT COUNSELOR Work Phone: [facility] 01-23-2025 16:22-0500 Body height 160 cm Bia Cao MD Work Phone: [facility] 01-23-2025 16:22-0500 Body mass index (BMI) [Ratio] 25.37 kg/m2 Bia Cao MD Work Phone: [facility] 01-23-2025 16:22-0500 Body temperature 97.39 [degF] Bia Cao MD Work Phone: [facility] 01-23-2025 16:22-0500 Body weight 64.95 kg Bia Cao MD Work Phone: [facility] 01-23-2025 16:22-0500 Diastolic blood pressure 74 mm[Hg] Bia Cao MD Work Phone: [facility] 01-23-2025 16:22-0500 Heart rate 87 /min Bia Cao MD Work Phone: [facility] 01-23-2025 16:22-0500 Respiratory rate 18 /min Bia Cao MD Work Phone: [facility] 01-23-2025 16:22-0500 SaO2% (BldA) [Mass fraction] 96 % Bia Cao MD Work Phone: [facility] 01-23-2025 16:22-0500 Systolic blood pressure 122 mm[Hg] Bia Cao MD Work Phone: [facility] 01-15-2025 14:20-0500 Body height 160 cm Bia Cao MD Work Phone: [facility] 01-15-2025 14:20-0500 Body mass index (BMI) [Ratio] 26.04 kg/m2 Bia Cao MD Work Phone: [facility] 01-15-2025 14:20-0500 Body weight 66.68 kg Bia Cao MD Work Phone: [facility] 01-15-2025 14:20-0500 Diastolic blood pressure 66 mm[Hg] Bia Cao MD Work Phone: [facility] 01-15-2025 14:20-0500 Heart rate 86 /min Bia Cao MD Work Phone: [facility] 01-15-2025 14:20-0500 Respiratory rate 18 /min Bia Cao MD Work Phone: [facility] 01-15-2025 14:20-0500 SaO2% (BldA) [Mass fraction] 94 % Bia Cao MD Work Phone: [facility] 01-15-2025 14:20-0500 Systolic blood pressure 130 mm[Hg] Bia Cao MD Work Phone: [facility] 01-12-2025 12:54-0500 Body height 160 cm Pfo 1 [facility] 01-12-2025 12:54-0500 Body mass index (BMI) [Ratio] 26.22 kg/m2 Pfo 1 [facility] 01-12-2025 12:54-0500 Body temperature 98.6 [degF] Pfo 1 [facility] 01-12-2025 12:54-0500 Body weight 67.13 kg Pfo 1 [facility] 01-12-2025 12:54-0500 Diastolic blood pressure 54 mm[Hg] Pfo 1 [facility] 01-12-2025 12:54-0500 Heart rate 82 /min Pfo 1 [facility] 01-12-2025 12:54-0500 Respiratory rate 16 /min Pfo 1 [facility] 01-12-2025 12:54-0500 SaO2% (BldA) [Mass fraction] 96 % Pfo 1 [facility] 01-12-2025 12:54-0500 Systolic blood pressure 107 mm[Hg] Pfo 1 [facility] 01-11-2025 15:07-0500 Body height 160 cm Pfo 1 [facility] 01-11-2025 15:07-0500 Body mass index (BMI) [Ratio] 26.22 kg/m2 Pfo 1 [facility] 01-11-2025 15:07-0500 Body temperature 97.11 [degF] Pfo 1 [facility] [employer] [facility] 01-11-2025 15:07-0500 Body weight 67.13 kg Pfo 1 [facility] 01-11-2025 15:07-0500 Diastolic blood pressure 85 mm[Hg] Pfo 1 [facility] 01-11-2025 15:07-0500 Heart rate 83 /min Pfo 1 [facility] 01-11-2025 15:07-0500 Respiratory rate 16 /min Pfo 1 [facility] 01-11-2025 15:07-0500 SaO2% (BldA) [Mass fraction] 96 % Pfo 1 [facility] 01-11-2025 15:07-0500 Systolic blood pressure 140 mm[Hg] Pfo 1 [facility] 01-09-2025 13:53-0500 Body height 160 cm Katerin Alvarado MD Work Phone: [facility] 01-09-2025 13:53-0500 Body mass index (BMI) [Ratio] 26.57 kg/m2 Katerin Alvarado MD Work Phone: [facility] 01-09-2025 13:53-0500 Body weight 68.04 kg Katerin Alvarado MD Work Phone: [facility] 01-09-2025 13:53-0500 Diastolic blood pressure 62 mm[Hg] Katerin Alvarado MD Work Phone: [facility] 01-09-2025 13:53-0500 Heart rate 87 /min Katerin Alvarado MD Work Phone: [facility] 01-09-2025 13:53-0500 Systolic blood pressure 108 mm[Hg] Katerin Alvarado MD Work Phone: [facility] 12-26-2024 09:30-0500 Body height 160 cm Bia Cao MD Work Phone: [facility] 12-26-2024 09:30-0500 Body mass index (BMI) [Ratio] 26.57 kg/m2 Bia Cao MD Work Phone: [facility] 12-26-2024 09:30-0500 Body weight 68.04 kg Bia Cao MD Work Phone: [facility] 12-26-2024 09:30-0500 Diastolic blood pressure 74 mm[Hg] Bia Cao MD Work Phone: [facility] 12-26-2024 09:30-0500 Heart rate 85 /min Bia Cao MD Work Phone: [facility] 12-26-2024 09:30-0500 Respiratory rate 18 /min Bia Cao MD Work Phone: [facility] 12-26-2024 09:30-0500 SaO2% (BldA) [Mass fraction] 97 % Bia Cao MD Work Phone: [facility] 12-26-2024 09:30-0500 Systolic blood pressure 122 mm[Hg] Bia Cao MD Work Phone: [facility] 12-19-2024 13:03-0500 Body height 160 cm Maria C Kramer MD Work Phone: [facility] 12-19-2024 13:03-0500 Body mass index (BMI) [Ratio] 26.39 kg/m2 Maria C Kramer MD Work Phone: [facility] 12-19-2024 13:03-0500 Body weight 67.59 kg Maria C Kramer MD Work Phone: [facility] 12-19-2024 13:03-0500 Diastolic blood pressure 87 mm[Hg] Maria C Kramer MD Work Phone: [facility] 12-19-2024 13:03-0500 Heart rate 86 /min Maria C Kramer MD Work Phone: [facility] 12-19-2024 13:03-0500 Systolic blood pressure 162 mm[Hg] Maria C Kramer MD Work Phone: [facility] 12-08-2024 11:49-0500 Body height 160 cm Bia Cao MD Work Phone: [facility] 12-08-2024 11:49-0500 Body mass index (BMI) [Ratio] 26.18 kg/m2 Bia Cao MD Work Phone: [facility] 12-08-2024 11:49-0500 Body weight 67.04 kg Bia Cao MD Work Phone: [facility] 12-08-2024 11:49-0500 Diastolic blood pressure 76 mm[Hg] Bia Cao MD Work Phone: [facility] 12-08-2024 11:49-0500 Heart rate 79 /min Bia Cao MD Work Phone: [facility] 12-08-2024 11:49-0500 SaO2% (BldA) [Mass fraction] 93 % Bia Cao MD Work Phone: [facility] 12-08-2024 11:49-0500 Systolic blood pressure 128 mm[Hg] Bia Cao MD Work Phone: [facility] 12-06-2024 11:48-0500 Body mass index (BMI) [Ratio] 26.55 kg/m2 John Johnson MD Work Phone: [facility] 12-06-2024 11:48-0500 Body weight 67.99 kg John Johnson MD Work Phone: [facility] 12-06-2024 11:48-0500 Diastolic blood pressure 70 mm[Hg] John Johnson MD Work Phone: [facility] 12-06-2024 11:48-0500 Heart rate 87 /min John Johnson MD Work Phone: [facility] 12-06-2024 11:48-0500 Systolic blood pressure 117 mm[Hg] John Johnson MD Work Phone: [facility] 10-30-2024 13:39-0500 Body height 160 cm Santo Christianson DPM Work Phone: [facility] 10-30-2024 13:39-0500 Body mass index (BMI) [Ratio] 26.18 kg/m2 Santo Christianson DPM Work Phone: [facility] 10-30-2024 13:39-0500 Body weight 67.04 kg Snato Christianson DPM Work Phone: [facility] 09-26-2024 13:39-0500 Body mass index (BMI) [Ratio] 26.17 kg/m2 Rose Velasquez BOX SEALING MACHINE CATCHER.INVESTMENT COUNSELOR Work Phone: [facility] 09-26-2024 13:39-0500 Body weight 67 kg Rose Velasquez BOX SEALING MACHINE CATCHER.INVESTMENT COUNSELOR Work Phone: [facility] 09-26-2024 13:39-0500 Diastolic blood pressure 81 mm[Hg] Rose Velasquez BOX SEALING MACHINE CATCHER.INVESTMENT COUNSELOR Work Phone: [facility] 09-26-2024 13:39-0500 Heart rate 91 /min Rose Velasquez BOX SEALING MACHINE CATCHER.INVESTMENT COUNSELOR Work Phone: [facility] 09-26-2024 13:39-0500 SaO2% (BldA) [Mass fraction] 96 % Rose Velasquez BOX SEALING MACHINE CATCHER.INVESTMENT COUNSELOR Work Phone: [facility] 09-26-2024 13:39-0500 Systolic blood pressure 143 mm[Hg] Rose Velasquez BOX SEALING MACHINE CATCHER.INVESTMENT COUNSELOR Work Phone: [facility] 08-14-2024 15:57-0400 Body height 160 cm Bia Cao MD Work Phone: [facility] 08-14-2024 15:57-0400 Body mass index (BMI) [Ratio] 26.18 kg/m2 Bia Cao MD Work Phone: [facility] 08-14-2024 15:57-0400 Body weight 67.04 kg Bia Cao MD Work Phone: [facility] 08-14-2024 15:57-0400 Diastolic blood pressure 88 mm[Hg] Bia Cao MD Work Phone: [facility] 08-14-2024 15:57-0400 Heart rate 88 /min Bia Cao MD Work Phone: [facility] 08-14-2024 15:57-0400 SaO2% (BldA) [Mass fraction] 95 % Bia Cao MD Work Phone: [facility] 08-14-2024 15:57-0400 Systolic blood pressure 148 mm[Hg] Bia Cao MD Work Phone: [facility] 08-08-2024 11:40-0400 Body height 160 cm Bia Cao MD Work Phone: [facility] 08-08-2024 11:40-0400 Body mass index (BMI) [Ratio] 26.43 kg/m2 Bia Cao MD Work Phone: [facility] 08-08-2024 11:40-0400 Body weight 67.68 kg Bia Cao MD Work Phone: [facility] 08-08-2024 11:40-0400 Diastolic blood pressure 84 mm[Hg] Bia Cao MD Work Phone: [facility] 08-08-2024 11:40-0400 Heart rate 77 /min Bia Cao MD Work Phone: [facility] 08-08-2024 11:40-0400 Respiratory rate 20 /min Bia Cao MD Work Phone: [facility] 08-08-2024 11:40-0400 SaO2% (BldA) [Mass fraction] 97 % Bia Cao MD Work Phone: [facility] 08-08-2024 11:40-0400 Systolic blood pressure 136 mm[Hg] Bia Cao MD Work Phone: [facility] 07-10-2024 15:39-0400 Body height 160 cm Bia Cao MD Work Phone: [facility] 07-10-2024 15:39-0400 Body mass index (BMI) [Ratio] 27.1 kg/m2 Bia Cao MD Work Phone: [facility] 07-10-2024 15:39-0400 Body weight 69.4 kg Bia Cao MD Work Phone: [facility] 07-10-2024 15:39-0400 Diastolic blood pressure 72 mm[Hg] Bia Cao MD Work Phone: [facility] 07-10-2024 15:39-0400 Heart rate 90 /min Bia Cao MD Work Phone: [facility] 07-10-2024 15:39-0400 Respiratory rate 18 /min Bia Cao MD Work Phone: [facility] 07-10-2024 15:39-0400 SaO2% (BldA) [Mass fraction] 97 % Bia Cao MD Work Phone: [facility] 07-10-2024 15:39-0400 Systolic blood pressure 126 mm[Hg] Bia Cao MD Work Phone: [facility] 04-04-2024 11:29-0400 Body height 160 cm Mandi Hoover MD Work Phone: [facility] 04-04-2024 11:29-0400 Body mass index (BMI) [Ratio] 27.18 kg/m2 Mandi Hoover MD Work Phone: [facility] 04-04-2024 11:29-0400 Body temperature 97.7 [degF] Mandi Hoover MD Work Phone: [facility] 04-04-2024 11:29-0400 Body weight 69.6 kg Mandi Hoover MD Work Phone: [facility] 04-04-2024 11:29-0400 Diastolic blood pressure 65 mm[Hg] Mandi Hoover MD Work Phone: [facility] 04-04-2024 11:29-0400 Heart rate 80 /min Mandi Hoover MD Work Phone: [facility] 04-04-2024 11:29-0400 Respiratory rate 18 /min Mandi Hoover MD Work Phone: [facility] 04-04-2024 11:29-0400 SaO2% (BldA) [Mass fraction] 96 % Mandi Hoover MD Work Phone: [facility] 04-04-2024 11:29-0400 Systolic blood pressure 105 mm[Hg] Mandi Hoover MD Work Phone: [facility] Encounters Encounter Date Encounter Type Care Provider Facility Start: 03-22-2025 End: 03-22-2025 Refill Bia Cao MD Work Phone: [facility] Comment on above: Moderate persistent asthma, unspecified whether complicated (CMS/HCC) Start: 03-21-2025 End: 03-21-2025 ambulatory Pfo Infusion Chair 1 Meggan Harrison [facility] - Medical Oncology Comment on above: Osteoporosis, unspec ified osteoporosis type, unspecified pathological fracture presence (Primary Dx) Start: 03-19-2025 End: 03-19-2025 ambulatory [facility] Start: 02-27-2025 End: 02-27-2025 Office outpatient visit 15 minutes Randall WILKINSON Work Phone: [facility] Comment on above: Urge incontinence (P rimary Dx); Frequent UTI Start: 02-27-2025 End: 02-27-2025 ambulatory RANDALL JAUREGUI [facility] Start: 02-19-2025 End: 02-19-2025 Orders Only Yoanna Willian CORREIA-INVESTMENT COUNSELOR Work Phone: [facility] Neurology, A Department of [facility] Comment on above: Migraine without aur a and without status migrainosus, not intractable (Primary Dx); Essential tremor; Cervical radiculopathy; Bilateral occipital neuralgia Essential hypertensi on ([facility]/HCC) (Primary Dx) Start: 02-16-2025 End: 02-16-2025 ambulatory Pfo Infusion Chair 1 Megagn Harrison [facility] - Medical Oncology Comment on above: Osteoporosis, unspec ified osteoporosis type, unspecified pathological fracture presence (Primary Dx) Start: 02-14-2025 End: 02-14-2025 ambulatory [facility] Start: 02-13-2025 End: 02-13-2025 ambulatory BIA CAO Not Available Start: 02-12-2025 End: 02-12-2025 Telephone encounter Bia Cao MD Work Phone: [facility] Start: 02-12-2025 End: 02-12-2025 ambulatory YOANNA DORSEY [facility] Start: 02-12-2025 End: 02-12-2025 Office outpatient visit 15 minutes Yoanna Dorsey BOX SEALING MACHINE CATCHER-INVESTMENT COUNSELOR Work Phone: [facility], A Department of [facility] Comment on above: Migraine without aur a and without status migrainosus, not intractable (Primary Dx); Essential tremor; Psychophysiological insomnia Start: 02-09-2025 End: 02-09-2025 Telephone encounter Blanche Harrison [facility] - Medical Oncology Start: 02-08-2025 End: 02-08-2025 Orders Only Gladys Zambrano WINE MAKER [facility] Adult Endocrinology, A Department of [facility] Comment on above: Osteoporosis, unspec ified osteoporosis type, unspecified pathological fracture presence (Primary Dx) Start: 02-06-2025 End: 02-06-2025 ambulatory BIA CAO Not Available Start: 01-31-2025 End: 01-31-2025 Refill Bia Cao MD Work Phone: [facility] Comment on above: Stress incontinence of urine Start: 01-23-2025 End: 01-23-2025 ambulatory BIA CAO Not Available Start: 01-23-2025 End: 01-23-2025 Office outpatient visit 15 minutes Bia Cao MD Work Phone: [facility] Comment on above: Acute bronchitis, un specified organism (Primary Dx); Flank pain Start: 01-23-2025 End: 01-23-2025 Bamboo flowsheet Bia Cao MD Work Phone: [facility] Start: 01-23-2025 End: 01-23-2025 Bamboo flowsheet Bia Cao MD Work Phone: [facility] Start: 01-22-2025 ambulatory [facility] Start: 01-15-2025 End: 01-15-2025 Office outpatient visit 15 minutes Bia Cao MD Work Phone: [facility] Comment on above: Influenza A (Primary Dx); Sore throat; Acute cough Start: 01-15-2025 End: 01-15-2025 ambulatory BIA CAO Not Available Start: 01-15-2025 End: 01-15-2025 Bamboo flowsheet Bia Cao MD Work Phone: [facility] Start: 01-15-2025 End: 01-15-2025 Bamboo flowsheet Bia Cao MD Work Phone: [facility] Start: 01-12-2025 End: 01-12-2025 ambulatory Pfo Infusion Chair 1 Meggan Hunter [facility] Medical Oncology Comment on above: Osteoporosis, unspec ified osteoporosis type, unspecified pathological fracture presence (Primary Dx) Start: 01-12-2025 End: 01-12-2025 ambulatory [facility] Start: 01-11-2025 End: 01-11-2025 ambulatory Pfo Infusion Chair 1 Meggan L [facility] Medical Oncology Start: 01-09-2025 End: 01-09-2025 ambulatory KATERIN ALVARADO Not Available Start: 01-09-2025 End: 01-09-2025 Office outpatient new 45 minutes Katerin Alvarado MD Work Phone: [facility] Comment on above: Presbylarynges (Prim vipul Dx); Hoarse Start: 01-03-2025 End: 01-03-2025 Refill Bia Cao MD Work Phone: [facility] Comment on above: Mixed hyperlipidemia (CMS/HCC); Anxiety Start: 01-01-2025 End: 01-01-2025 Patient encounter procedure [facility] F[facility] Nurse [facility] Comment on above: Hematuria, unspecifi ed type Start: 01-01-2025 End: 01-01-2025 ambulatory BIA CAO Not Available Start: 01-01-2025 End: 01-01-2025 Telephone encounter Bia Cao MD Work Phone: [facility] Comment on above: Acute cystitis with hematuria (Primary Dx) Start: 12-29-2024 ambulatory [facility] Start: 12-26-2024 End: 12-26-2024 Bamboo flowsheet Bia [...] depressive disorder, single episode, in full remission (CMS/HCC); Fall, subsequent encounter; Gastroesophageal reflux disease without esophagitis Start: 12-25-2024 End: 12-25-2024 Telephone encounter Bia Cao MD Work Phone: [facility] Start: 12-23-2024 End: 12-23-2024 Emergency department patient visit [facility] Start: 12-22-2024 End: 12-22-2024 Orders Only John Johnson MD Work Phone: [facility] Adult Endocrinology, A Department of [facility] Comment on above: Osteoporosis, unspec ified osteoporosis type, unspecified pathological fracture presence (Primary Dx) Start: 12-19-2024 End: 12-19-2024 Office outpatient visit 15 minutes Maria C Kramer MD Work Phone: [facility] Comment on above: Urge incontinence (P rimary Dx) Start: 12-19-2024 End: 12-19-2024 ambulatory MARIA C KRAMER [facility] Start: 12-18-2024 End: 12-18-2024 ambulatory Adelfo Hansen MD Facility: [facility] Start: 12-12-2024 End: 12-12-2024 Refill Bia Cao [...] 25 minutes John Johnson MD Work Phone: [facility] Adult Endocrinology, A Department [facility] Comment on above: Hypothyroidism, unsp ecified type (Primary Dx); Age-related osteoporosis without current pathological fracture; Vitamin D deficiency Start: 12-06-2024 End: 12-06-2024 Orders Only Gladys Zambrano LPN [facility] Adult Endocrinology, A [facility] Comment on above: Osteoporosis, unspec ified osteoporosis type, unspecified pathological fracture presence (Primary Dx) Start: 11-29-2024 End: 11-29-2024 Refill Bia Cao MD Work Phone: [facility] Comment on above: Anemia, unspecified type (Primary Dx) Start: 11-28-2024 End: 11-28-2024 [facility] Start: 11-20-2024 End: 11-20-2024 ambulatory Adelfo Hansen MD Facility:[facility] Start: 11-06-2024 End: 11-06-2024 Refyuval Cao MD Work Phone: [facility] Comment on above: Hyperlipidemia, unsp ecified hyperlipidemia type (CMS/HCC) Start: 10-30-2024 End: 10-30-2024 Bamboo flowsheet Santo Christianson DPM Work Phone: [facility] Start: 10-30-2024 End: 10-30-2024 Bamboo flowsheet Santo Christianson DPM Work Phone: [facility] Start: 10-30-2024 End: 10-30-2024 Patient encounter procedure Santo Christianson DPM Work Phone: [facility] Comment on above: Dermatophytosis of n ail (Primary Dx); Dystrophic nail; Pain around toenail, right foot; Pain around toenail, left foot Start: 10-30-2024 End: 10-30-2024 ambulatory SANTO CHRISTIANSON Not Available Start: 10-04-2024 End: 10-06-2024 Telephone encounter Rose Velasquez APRN.INVESTMENT COUNSELOR Work Phone: [facility] Comment on above: Patient Question Start: 09-26-2024 End: 09-26-2024 ambulatory ROSE VELASQUEZ Facility:[facility] Start: 09-26-2024 End: 09-26-2024 Patient encounter procedure Rose Velasquez APRN.INVESTMENT COUNSELOR Work Phone: Neurosurgery Comment on above: 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); Dizziness Start: 09-26-2024 End: 09-26-2024 ambulatory MANDI HOOVER Facility:[facility] Start: 09-26-2024 End: 09-26-2024 Subsequent hospital visit by physician [facility] (Lg Bore/1.5t) Radiology MRI Comment on above: 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] Start: 09-04-2024 End: 09-04-2024 ambulatory Adelfo Hansen MD Facility:[facility] Start: 08-29-2024 End: 08-29-2024 ambulatory [facility] Start: 08-21-2024 End: 08-21-2024 ambulatory Adelfo Hansen MD Facility:[facility] Start: 08-14-2024 End: 08-14-2024 Office outpatient [...] ambulatory Adelfo Hansen MD Facility: [facility] Start: 07-14-2024 End: 07-14-2024 Orders Only Bia Cao MD Work Phone: [facility] Comment on above: Acute cystitis witho ut hematuria (Primary Dx) Start: 07-13-2024 End: 07-13-2024 ambulatory [facility] Start: 07-11-2024 End: 07-11-2024 [...] [facility] Start: 07-10-2024 End: 07-10-2024 ambulatory [facility] Start: 07-03-2024 End: 07-03-2024 ambulatory [facility] Not Available Start: 06-14-2024 End: 06-14-2024 ambulatory [facility] Start: 05-09-2024 Orders Only Mandi gambino MD Work Phone: [facility] Comment on above: Intracranial meningi brandon (HCC) (Primary Dx); Benign neoplasm of meninges (HCC) Start: 05-04-2024 End: 05-04-2024 ambulatory BIA CAO Not Available Start: 05-01-2024 End: 05-01-2024 ambulatory Adelfo Hasnen MD Facility:[facility] Start: 04-05-2024 End: 04-05-2024 ambulatory BIA CAO Not Available Start: 04-04-2024 End: 04-04-2024 ambulatory MANDI HOOVER Facility:[facility] Start: 04-04-2024 End: 04-04-2024 Patient encounter procedure Mandi Hoover MD Work Phone: [facility] Comment on above: Intracranial meningi brandon (HCC) (Primary Dx); Sensorineural hearing loss (SNHL) of right ear, unspecified hearing status on contralateral side; Dizziness Start: 04-03-2024 End: 04-03-2024 ambulatory BIA CAO Not Available Start: 03-24-2024 Telephone encounter Neurology Provid er Neurology Comment on above: Received Outside [facility] (External referral to Neurological [place]/); triage; Nurse Triage Call; Appointment Start: 03-24-2024 End: 03-24-2024 ambulatory [facility] Start: 03-16-2024 ambulatory [facility] Start: 03-13-2024 End: 03-13-2024 ambulatory Adelfo Hansen MD Facility:[facility] Start: 03-10-2024 End: 03-10-2024 ambulatory [facility] Start: 03-02-2024 End: 03-02-2024 ambulatory BIA Mccormick [facility] Not Available Start: 02-22-2024 End: 02-22-2024 ambulatory BIA CAO Not Available Start: 02-07-2024 End: 02-07-2024 ambulatory Adelfo Hansen MD Facility:[facility] Start: 01-10-2024 End: 01-10-2024 ambulatory Adelfo Hansen MD Facility:[facility] Start: 01-07-2024 End: 01-07-2024 ambulatory [facility] Start: 01-06-2024 End: 01-06-2024 ambulatory Ria Snyder PTA Work Phone: [facility] Comment on above: General weakness (Pr imary Dx); History of falling Start: 01-04-2024 Bamboo flowsheet Ria hernandez [employer]ARLY CHILDHOOD WORKER Work Phone: [facility] Start: 01-04-2024 Bamboo flowsheet Ria hernandez EARLY CHILDHOOD WORKER Work Phone: [facility] Start: 01-04-2024 End: 01-04-2024 ambulatory Ria Snyder EARLY CHILDHOOD WORKER Work Phone: [facility] Comment on above: General weakness (Pr imary Dx); History of falling Start: 01-03-2024 Refill Bia Cao Adali D Work Phone: [facility] Comment on above: Mixed hyperlipidemia (CMS/HCC) (Primary Dx); Stress incontinence of urine Start: 12-30-2023 Chart abstracting Jonny Freitas gs PT Work Phone: [facility] Start: 12-23-2023 End: 12-23-2023 ambulatory Ria Snyder EARLY CHILDHOOD WORKER Work Phone: [facility] Comment on above: General weakness (Pr imary Dx); History of falling Start: 10-12-2022 End: 10-12-2022 ambulatory [facility] Start: 09-28-2022 End: 09-28-2022 ambulatory [facility] Start: 05-16-2018 End: 05-16-2018 Ambulatory AUDREY HORN [facility] Start: 05-06-2018 End: 05-11-2018 Ambulatory LENNY PEDRAZA [facility] Start: 05-02-2018 Patient encounter status Antonietta Johnson MD Work Phone: [employer] Work Phone: Procedures Date Procedure Procedure Detail Performing Clinician Start: 02-27-2025 Urnls dip stick/tabl et rgnt auto w/o microscopy Randall WILKINSON Work Phone: Start: 02-12-2025 Adult depression scr eening assessment Yoanna Dorsey BOX SEALING MACHINE CATCHER-INVESTMENT COUNSELOR Work Phone: Start: 01-23-2025 Urnls dip stick/tabl et rgnt non-auto w/o micrscp Bia Cao MD Work Phone: Start: 01-15-2025 STATUS COVID-19/FLU Mar oracio Cao MD Work Phone: Start: 01-01-2025 Urnls dip stick/tabl et rgnt non-auto w/o micrscp Tae Hardy WOMENS HEALTH NURSE PRACTITIONER Work Phone: Start: 12-08-2024 Culture bacterial quanttative colony count urine Bia Cao MD Work Phone: Start: 12-08-2024 NOTE Bia alva MD Work Phone: Start: 12-08-2024 End: 12-08-2024 Urnls dip stick/tablet rgnt non-auto w/o micrscp Bia Cao MD Work Phone: Start: 12-06-2024 Follow-up visit Follow-up JOHN JOHNSON Start: 09-26-2024 Mri brain brain stem w/o w/contrast material Mandi Hoover MD Work Phone: Start: 08-16-2024 STATUS COVID-19/FLU Mar oracio Cao MD Work Phone: Start: 07-13-2024 Adult depression scr eening assessment John Johnson MD Work Phone: Start: 07-10-2024 Urnls dip stick/tabl et rgnt non-auto w/o micrscp Bia Cao MD Work Phone: Start: 06-14-2024 Follow-up visit Follow-up JOHN JOHNSON Start: 05-16-2018 DISCHARGE PATIENT LENNY PEDRAZA Start: 05-16-2018 BEDREST LENNY ABBIE PAIZ Start: [...] Detail Author Start: 02-10-2027 Diabetes Screening Diabetes Screenin [facility] Start: 02-27-2026 Tobacco Screening Tobacco Screening [facility] Start: 02-16-2026 Tobacco Screening Tobacco Screening [facility] Start: 02-12-2026 Depression Screening Depression Scre ening [facility] Start: 02-12-2026 Fall Risk Screening Fall Risk Screen ing [facility] Start: 02-12-2026 Tobacco Screening Tobacco Screening [facility] Start: 01-11-2026 Tobacco Screening Tobacco Screening [facility] Start: 12-19-2025 Tobacco Screening Tobacco Screening [facility] Start: 12-06-2025 Tobacco Screening Tobacco Screening [facility] Start: 08-16-2025 End: 08-16-2025 Patient encounter procedure 08/16/2025 11:30 AM EDT Office Visit [facility], A [facility] [address] [phone] Yoanna Dorsey, BOX SEALING MACHINE CATCHER-INVESTMENT COUNSELOR [address] [address] [facility], A [facility] Start: 07-23-2025 Influenza vaccination [facility] Start: 07-13-2025 Depression Screening Depression Scre ening [facility] Start: 06-13-2025 End: 06-13-2025 Patient encounter procedure 06/13/2025 2:00 PM EDT Office Visit [facility] [address] [place] [address] [address] [facility] [place] [address] Randall Jauregui PA [address] [place] [address] [facility] Start: 05-21-2025 Influenza vaccination Influenza Vacc ine (#1) [facility] Comment on above: Postponed from 07/23 (Other Medical Reasons) Start: 04-26-2025 COVID-19 Vaccine ( season) COVID-19 Vaccine ( season) [facility] Start: 04-18-2025 End: 04-18-2025 Patient encounter procedure 04/18/2025 1:30 PM EDT Office Visit [facility] Adult Endocrinology, A [facility] [address] [facility] [address] [place] [address] John Johnson MD [address] [facility], [address] [place] [address] [facility]ology, A [facility] Start: 04-18-2025 End: 04-18-2025 ambulatory 04/18/2025 10:30 AM EDT Infusion [facility] [address] [place] [phone] [facility] Start: 04-09-2025 End: 04-09-2025 Patient encounter procedure 04/09/2025 1:40 PM EDT Office Visit [facility] [address] [place] [phone] Bia Cao MD [address] [place], [place] [phone] [facility] Start: 04-09-2025 End: 04-09-2025 ambulatory 04/09/2025 1:00 PM EDT Infusion Meggan Harrison [facility] - [facility] Oncology [address] [place] [phone] Meggan Harrison [facility] Start: 04-06-2025 End: 04-06-2025 Patient encounter procedure 04/06/2025 10:30 AM EDT Office Visit [facility] [address] [place] [address] [place] [phone] Ileana Corbett, [address] [facility], [address], [address] [place], [place] [phone] [facility] Start: 03-12-2025 End: 03-12-2025 ambulatory 03/12/2025 1:30 PM EDT Infusion Meggan Harrison [facility] [address] [place] [phone] Meggan Harrison [facility] Start: 03-10-2025 Fall Risk Screening Fall Risk Screen [facility] Start: 03-09-2025 End: 03-09-2025 ambulatory 03/09/2025 1:00 PM EDT Infusion Meggandaphne Harrison [facility] [address] [place] [phone] Meggan Harrison [facility] Start: 02-27-2025 End: 02-27-2025 Patient encounter procedure 02/27/2025 2:30 PM EDT Office Visit [facility] [address] [place] [phone] Randall Jauregui PA [address] [place] [address] [facility] Start: 02-16-2025 End: 02-16-2025 ambulatory 02/16/2025 1:00 PM EDT Infusion Meggan Dale Hunter [facility] [address] [place] [phone] Meggan Harrison [facility] Start: 02-13-2025 End: 02-13-2025 Professional / ancillary services management 02/13/2025 2:00 PM EDT Ancillary Procedure [facility] [address] [address] Start: 02-12-2025 End: 02-12-2025 Patient encounter procedure [facility] Start: 02-09-2025 End: 02-09-2025 ambulatory 02/09/2025 2:00 PM EDT Infusion Meggan Harrison [facility] [address] [place] [phone] Meggan Harrison [facility] Start: 02-08-2025 End: 02-08-2025 ambulatory 02/08/2025 2:00 PM EDT Infusion Meggan Harrison [facility] [address] [place] [phone] Meggan Harrison [facility] Start: 02-06-2025 End: 02-06-2025 Patient encounter procedure 02/06/2025 9:20 AM EDT Office Visit [facility] [address] [place] [address] Bia Cao MD [address] [place] [address] [facility] Start: 01-23-2025 End: 01-23-2026 Bacteria identified in Urine by Culture Urine culture (clean catch) Microbiology Routine Flank pain Expected: 01/23/2025 (Approximate), Expires: 01/23/2026 [facility] Comment on above: Expected: 01/23/2025 (Approximate), Expires: 01/23/2026 Start: 01-23-2025 End: 01-23-2026 Urinalysis complete panel - Urine Urinalysis with reflex microscopic (clean catch) Lab Routine Flank pain Expected: 01/23/2025 (Approximate), Expires: 01/23/2026 [facility] Work Phone: Comment on above: Expected: 01/23/2025 (Approximate), Expires: 01/23/2026 Start: 01-18-2025 End: 01-18-2025 Patient encounter procedure 01/18/2025 11:00 AM EST Office Visit [facility] [address] [place] [address] Yoanna Dorsey APRN-INVESTMENT COUNSELOR [address] [place] [address] [facility] Start: 01-17-2025 End: 01-17-2025 Patient encounter procedure [facility] Start: 01-15-2025 End: 01-15-2025 Patient encounter procedure 01/15/2025 2:20 PM EST Office Visit [facility] [address] [place] [phone] Bia Cao MD [address] [place], [place] [phone] Arrived [facility] Comment on above: Arrived Start: 01-12-2025 End: 01-12-2025 ambulatory 01/12/2025 2:20 PM EST Infusion Meggan L [facility] - Medical Oncology [facility] [place] [phone] Meggan L [facility] - Medical Oncology Start: 01-09-2025 End: 01-09-2025 Patient encounter procedure 01/09/2025 1:40 PM EST Office Visit [facility] [address] [facility] [address] [place] [phone] Katerin Alvarado MD [address] [facility] [address] [place] [address] [facility] Start: 01-01-2025 End: 01-01-2026 Bacteria identified in Urine by Culture Urine culture (clean catch) Microbiology Routine Hematuria, unspecified type Expected: 01/01/2025 (Approximate), Expires: 01/01/2026 [facility] Work Phone: Comment on above: Expected: 01/01/2025 (Approximate), Expires: 01/01/2026 Start: 01-01-2025 End: 01-01-2025 Patient encounter procedure 01/01/2025 1:30 PM EST Office Visit [facility] [address] [facility] [phone] [facility] Start: 12-26-2024 End: 12-26-2024 Patient encounter procedure 12/26/2024 9:20 AM EST Office Visit [facility] [address] [facility] [phone] Bia Cao MD [address] [place] [address] [facility] Start: 12-19-2024 End: 12-19-2024 Patient encounter procedure 12/19/2024 12:45 PM EST Office Visit [facility] [address] [place] [phone] Maria C Kramer MD [address] [place] [address] [facility] Start: 12-08-2024 End: 12-08-2024 Patient encounter procedure 12/08/2024 11:40 AM EST Office Visit [facility] [address] [facility] [phone] Bia Cao MD [address] [place] [address] [facility] Start: 12-06-2024 Medicare Annual Well ness (AWV) Medicare Annual Wellness (AWV) [facility] Start: 10-30-2024 End: 10-30-2024 Patient encounter procedure 10/30/2024 1:45 PM EST Office Visit [facility] [address] [place] [phone] Santo Christianson DPM [address] [place] [address] Arrived [facility] Comment on above: Arrived Start: 08-28-2024 End: 06-08-2025 MR Brain WO and W contrast IV MRI BRAIN WO/W IVCON Radiology Routine Benign neoplasm of meninges (HCC) Expected: 08/28/2024 (Approximate), Expires: 06/08/2025 [facility] Work Phone: Comment on above: Expected: 08/28/2024 (Approximate), Expires: 06/08/2025 Start: 08-14-2024 End: 08-14-2024 Patient encounter procedure 08/14/2024 4:00 PM EDT Office Visit [facility] [address] [facility] [phone] Bia Cao MD [address] [place] [address] Arrived [facility] Comment on above: Arrived Start: 08-08-2024 End: 08-08-2024 Patient encounter procedure 08/08/2024 11:40 AM EDT Office Visit [facility] [address] [facility] [phone] Bia Cao MD [address] [place] [address] Arrived [facility] Comment on above: Arrived Start: 08-04-2024 End: 08-04-2024 Patient encounter procedure 08/04/2024 11:00 AM EDT Office Visit [facility] [address] [facility] [phone] Bia Cao MD [address] [place] [address] [facility] Start: 07-23-2024 Covid-19 Vaccine ( season) Covid-19 Vaccine ( season) [facility] Start: 07-23-2024 Influenza vaccination [facility] Start: 07-10-2024 End: 07-10-2024 Patient encounter procedure 07/10/2024 3:40 PM EDT Office Visit [facility] [address] [place] [address] Bia Cao MD [address] [place] [address] Arrived [facility] Comment on above: Arrived Start: 07-10-2024 End: 07-10-2025 Bacteria identified in Urine by Culture Urine culture (clean catch) Microbiology Routine Dysuria Expected: 07/10/2024 (Approximate), Expires: 07/10/2025 [facility] Work Phone: Comment on above: Expected: 07/10/2024 (Approximate), Expires: 07/10/2025 Start: 07-10-2024 End: 07-10-2025 Urinalysis complete panel - Urine Urinalysis with reflex microscopic (clean catch) Lab Routine Dysuria Expected: 07/10/2024 (Approximate), Expires: 07/10/2025 [facility] Comment on above: Expected: 07/10/2024 (Approximate), Expires: 07/10/2025 Start: 05-21-2024 Influenza vaccination Influenza Vacc ine (#1) [facility] Comment on above: Postponed from 07/23 (Patient Refused) Start: 04-04-2024 End: 04-04-2024 Patient encounter procedure 04/04/2024 10:30 AM EDT Office Visit [facility] [address] [place] [address] Mandi Hoover MD [address] [place] [address] Time Frame: First available [facility] Comment on above: Time Frame: First av ailable Start: 04-03-2024 End: 04-03-2024 Patient encounter procedure 04/03/2024 11:20 AM EDT Office Visit [facility] [address] [place] [phone] Bia Cao MD [address] [place] [address] [facility] Start: 01-20-2024 End: 01-20-2024 ambulatory 01/20/2024 11:00 AM EST Treatment [facility] [address] [place] [phone] Jonny Salazar, PT [address] [place] [address] [facility] Start: 01-18-2024 End: 01-18-2024 ambulatory 01/18/2024 11:30 AM EST Treatment [facility] [address] [place] [phone] Ria Snyder, EARLY CHILDHOOD WORKER [address] [place] [address] [facility] Start: 01-14-2024 End: 01-14-2024 ambulatory 01/14/2024 1:00 PM EST Treatment [facility] [address] [place] [phone] Ria Snyder, EARLY CHILDHOOD WORKER [address] [place] [address] [facility] Start: 01-12-2024 End: 01-12-2024 ambulatory 01/12/2024 12:30 PM EST Treatment [facility] [address] [place] [phone] Ria Snyder, EARLY CHILDHOOD WORKER [address] [place] [address] [facility] Start: 01-06-2024 End: 01-06-2024 ambulatory [facility] Start: 01-04-2024 End: 01-04-2024 ambulatory 01/04/2024 11:30 AM EST Treatment [facility] [address] [place] [phone] Ria Snyder, EARLY CHILDHOOD WORKER [address] [place] [address] [facility] Start: 12-31-2023 End: 12-31-2023 ambulatory 12/31/2023 10:00 AM EST Treatment [facility] [address] [place] [address] Ria Snyder, EARLY CHILDHOOD WORKER [address] [place] [address] [facility] Start: 12-30-2023 End: 12-30-2023 ambulatory 12/30/2023 11:30 AM EST Treatment [facility] [address] [place] [address] Jonny Salazar, PT [address] [place] [address] [facility] Start: 12-28-2023 End: 12-28-2023 ambulatory 12/28/2023 11:30 AM EST Treatment [facility] [address] [place] [address] Ria Snyder, EARLY CHILDHOOD WORKER [address] [place] [address] [facility] Start: 11-22-2023 Advance Directive Discussion Advance Directive Discussion [facility] Start: 11-22-2023 Behavioral Health Screening Behavioral Health Screening [facility] Start: 07-23-2023 Covid-19 Vaccine () Covid-19 Vaccine () [facility] Start: 08-21-2021 DTaP,Tdap and Td Vac cines (2 - Td or Tdap) DTaP,Tdap and Td Vaccines (2 - Td or Tdap) [facility] Start: 2020 RSV Vaccine (1 - 1-d ose 75+ series) RSV Vaccine (1 - 1-dose 75+ series) [facility] Start: 08-22-2011 Urine microalbumin profile DTaP,Tdap,Td Vaccine (1 - Tdap) [facility] Start: 01-17-2010 Administration of varicella zoster vaccine Zoster (Shingles) Vaccine (2 of 3) [facility] Start: 2005 RSV Vaccine (1 - 1-d ose 60+ series) RSV Vaccine (1 - 1-dose 60+ series) [facility] Start: 1995 Shingrix Vaccine (1 of 2) Morales grix Vaccine (1 of 2) [facility] Start: 1963 Anxiety Screening Anxiety Screening [facility] Start: 1963 Depression Screening Depression Scre ening [facility] Start: 1963 [facility]atitis [facility] Bacteria identified in Urine by Culture Urine culture (clean catch) Microbiology Routine Urinary frequency 12/08/2024 12:28 PM [facility] Work Phone: End: 12-22-2025 Calcium [Mass/volume] in Serum or Plasma Calcium Lab Routine Osteoporosis, unspecified osteoporosis type, unspecified pathological fracture presence every 3 months for 4 Occurrences starting 12/22/2024 until 12/22/2025 [facility] Work Phone: Comment on above: every 3 months for 4 Occurrences starting 12/22/2024 until 12/22/2025 End: 02-08-2026 Calcium [Mass/volume] in Serum or Plasma Calcium Lab Routine Osteoporosis, unspecified osteoporosis type, unspecified pathological fracture presence MONTHLY for 12 Occurrences starting 02/08/2025 until 02/08/2026 [facility] Work Phone: Comment on above: MONTHLY for 12 Occur rences starting 02/08/2025 until 02/08/2026 End: 10-26-2025 MR Brain WO and W contrast IV MRI BRAIN WO/W IVCON Radiology Routine Benign neoplasm of meninges (HCC) 1 Occurrences starting 09/26/2024 until 10/26/2025 [facility] Work Phone: Comment on above: 1 Occurrences starti ng 09/26/2024 until 10/26/2025 Immunizations Immunization Date Immunization Notes Care Provider Frank seymour 10-26-2024 RSV, recombinant, protein subunit RSVpreF, adjuvant reconstitu, 120mcg/0.5mL, PF (Arexvy) Santo Christianson DPM Work Phone: [facility] 03-12-2021 COVID-19, mRNA, LNP- S, PF, 100mcg/0.5mL Dose John Johnson MD Work Phone: [facility] 03-11-2021 Moderna SARS-CoV-2 Vaccination Ria Snyder EARLY CHILDHOOD WORKER Work Phone: [facility] 02-12-2021 COVID-19, mRNA, LNP- S, PF, 100mcg/0.5mL Dose John Johnson MD Work Phone: [facility] 02-11-2021 Moderna SARS-CoV-2 Vaccination Ria Snyder EARLY CHILDHOOD WORKER Work Phone: [facility] 11-12-2020 pneumococcal conjuga te vaccine, 13 valent Ria Snyder EARLY CHILDHOOD WORKER Work Phone: [facility] 09-17-2020 influenza, high dose seasonal, preservative-free Ria Snyder EARLY CHILDHOOD WORKER Work Phone: [facility] 09-17-2020 Seasonal, quadrivale nt, recombinant, injectable influenza vaccine, preservative free John Johnson MD Work Phone: [facility] 09-17-2020 influenza virus vacc ine, unspecified formulation Ria Snyder EARLY CHILDHOOD WORKER Work Phone: [facility] 08-30-2019 Seasonal, quadrivale nt, recombinant, injectable influenza vaccine, preservative free Ria Snyder EARLY CHILDHOOD WORKER Work Phone: [facility] 08-29-2018 influenza, injectabl e, quadrivalent, preservative free Ria Snyder EARLY CHILDHOOD WORKER Work Phone: [facility] 08-22-2015 influenza, seasonal, injectable, preservative free Ria Snyder EARLY CHILDHOOD WORKER Work Phone: [facility] 08-13-2015 pneumococcal polysaccharide vaccine, 23 valent Ria Snyder EARLY CHILDHOOD WORKER Work Phone: [facility] 08-21-2011 tetanus and diphther ia toxoids, adsorbed, preservative free, for adult use (5 Lf of tetanus toxoid and 2 Lf of diphtheria toxoid) Ria Claudio EARLY CHILDHOOD WORKER Work Phone: [facility] 11-22-2009 zoster vaccine, live Greeulae aakash Claudio EARLY CHILDHOOD WORKER Work Phone: [facility] 11-22-2009 zoster vaccine, unspecified formulation John Johnson MD Work Phone: [facility] 08-31-2003 pneumococcal polysaccharide vaccine, 23 valent Bia Cao MD Work Phone: [facility] Payers Date Payer Category Payer Medicaid [employer] MED[employer]ARE A DVANTAGE [id number] 2023 Medicare [id number] 2022 Private Health Insurance 2021 Medicare HMO [employer] MEDICARE [id number] 2021 Medicare [id number] 2012 Medicare [id number] 1945 Unknown [id number] 2.16840.1.627988.3.579.2. 175 1945 Unknown [id number] 2.16840.1.748565.3.579.2. 175 1945 Unknown [id number] 2.840.1.673720.3.579.2. 1285 1945 Unknown [id number] 2.16840.1.976914.3.579.2. 128 1945 Unknown [id number] 2.16840.1.563126.3.579.2. 1285 1945 Unknown [id number] 2.16840.1.633342.3.579.2. 128 1945 Unknown [id number] 2.16840.1.163340.3.579.2. 1285 1945 Unknown [id number] 2.16840.1.816505.3.579.2. 1286 1945 Unknown [id number] 2.16840.1.796277.3.579.2. 1285 1945 Unknown [id number] 2.16840.1.477858.3.579.2. 6 1945 Unknown [id number] 2.16840.1.920343.3.579.2. 196 1945 Unknown [id number] 2.16840.1.009806.3.579.2. 196 1945 Unknown [id number] 2.16840.1.087925.3.579.2. 1945 Unknown [id number] 2.16.840.1.953155.3.579.2. 1945 Unknown [id number] 2.840.1.838909.3.579.2. 1945 Unknown [id number] 2.840.1.435643.3.579.2. 1945 Unknown [id number] 2.840.1.864044.3.579.2. 1945 Unknown [id number] 2.840.1.165226.3.579.2. 1945 Unknown [id number] 2.840.1.699020.3.579.2. 1945 Unknown [id number] 2.840.1.831982.3.579.2. 1258 1945 Unknown [id number] .840.1.542543.3.579.2. 1258 1945 Unknown [id number] 2.840.1.983779.3.579.2. 1258 1945 Unknown [id number] .840.1.891206.3.579.2. 1258 1945 Unknown [id number] .840.1.342184.3.579.2. 1258 1945 Unknown [id number] 2.840.1.155311.3.579.2. 1258 1945 Unknown [id number] 2.840.1.307541.3.579.2. 1258194 Unknown [id number] 2.840.1.467296.3.579.2. 125081945 Unknown [id number] 2.16.840.1.884316.3.579.2. 1259 -1945 Unknown [id number] 2.16.840.1.725901.3.579.2. 1259 -194 Unknown [id number] 2.16.840.1.347939.3.579.2. 1259 -08194 Unknown [id number] 2.16.840.1.533771.3.579.2. 1259 -194 Unknown [id number] 2.16.840.1.034042.3.579.2. 1259 -194 Unknown [id number] 2.16.840.1.696393.3.579.2. 1259 -194 Unknown [id number] 2.840.1.580472.3.579.2. 12507 28-194 Unknown [id number] 2.840.1.825719.3.579.2. 1259 -194 Unknown [id number] 2.16.840.1.630371.3.579.2. 1259 -194 Unknown [id number] 2.16840.1.514349.3.579.2. 1259 -194 Unknown [id number] 2.840.1.570169.3.579.2. 1259 -194 Unknown [id number] 2.16840.1.297142.3.579.2. 1259 -1945 Unknown [id number] 2.16.840.1.840762.3.579.2. 1286 -1945 Unknown [id number] 2.16.840.1.134907.3.579.2. 1286 -194 Unknown [id number] 2.16840.1.853363.3.579.2. 1286 -194 Unknown [id number] 2.16.840.1.934489.3.579.2. 1286 1945 Unknown [id number] 2.16.840.1.695104.3.579.2. 1285 1945 Unknown [id number] 2.16.840.1.258262.3.579.2. 128 1945 Unknown [id number] 2.16840.1.955957.3.579.2. 1285 1945 Unknown [id number] 2.16.840.1.720163.3.579.2. 1285 1945 Unknown [id number] 2.16840.1.189843.3.579.2. 1285 1945 Unknown [id number] 2.16840.1.034428.3.579.2. 1285 1945 Unknown [id number] 2.840.1.884497.3.579.2. 1285 1945 Unknown [id number] 2.16840.1.564527.3.579.2. 1285 1945 Unknown [id number] 2.16840.1.945314.3.579.2. 1285 1945 Unknown [id number] 2.16840.1.438291.3.579.2. 1285 1945 Unknown [id number] 2.840.1.106019.3.579.2. 1285 1945 Unknown [id number] 2.840.1.986633.3.579.2. 1286 Social History Date Type Detail Facility Start: 06-04-2023 End: 04-03-2024 Tobacco smoking status NHIS Never smoked tobacco [facility] Start: 06-04-2023 End: 04-03-2024 Tobacco use and exposure Smokeless tobacco non-user [facility] Start: 12-07-2023 Alcohol intake Current drinker of alcohol (finding) [facility] Start: 12-07-2023 End: 04-02-2024 History of Social function [facility] Start: 12-07-2023 End: 04-02-2024 Tobacco use panel [facility] Start: 05-04-2023 Alcohol Comment caffeine: occasional [facility] Start: 1945 Sex Assigned At Not on file [facility] Start: 01-27-2018 End: 03-21-2025 Alcohol intake Current non-drinker of alcohol (finding) [facility] National Score (1-10 0), lower number is lower risk Not on file [facility] Start: 07-10-2024 End: 02-06-2025 Alcoholic beverage intake Ex-drinker (finding) [facility] Do you belong to any [...] Second hand smoke from Father [facility] History of tobacco use Passive smoker [facility] Start: 1945 Sex assigned at Female [facility] Start: 06-27-2015 Sex Female (finding) [facility] Start: 05-22-2021 Gender identity Identifies as female gender (finding) [facility] Start: 05-22-2021 Sexual orientation Heterosexual (finding) [facility] Medical Equipment Procedure Code Equipment Code Equipment Origin al Text Equipment Identifier Dates Patch Dura 1x1in Drmtrx-[place] + Clgn Rgnrt Membr Strl - [id number] Start: 07-03-2021 Goals Date Patient Goal Desired Activity /State Personal health goal Personal health goal Comment on above: Formatting of this n ote might be different from the original. Evaluation of progress towards goal: safe transition from hospital to home with support of her friends/neighbors Clinical Notes 03-24-2024 to 03-22-2025 Telephone Encounter - Bia Cao MD - 03/22/2025 9:52 AM EDTTelephone Encounter - Bia Cao MD - 03/22/2025 9:52 AM EDTAbran Maldonado RN - 03/21/2025 10:30 AM EDTPatient Instructions Note Date & Type Note Facility 03-22-2025 Telephone encounter Note Approvals with refills [facility] 03-22-2025 Miscellaneous Notes Approvals with refills documented in this encounter [facility] 03-21-2025 History of Present illness Narrative Pt here for evenity injection as scheduled. Denies any issues with previous injections. Calcium 9.6. Evenity given SQ to bilat upper arms. Pt tolerated well. Treatment calendar given. Pt dc'd in stable ambulatory condition. documented in this encounter [facility] 02-27-2025 Evaluation + Plan note Associated Problem(s): Urge incontinence We discussed cranberry/D mannose supplements, topical estrogen cream, methenamine, or a prophylactic antibiotic. [facility] 02-27-2025 Miscellaneous Notes Associated Problem(s): Urge incontinence We discussed cranberry/D mannose supplements, topical estrogen cream, methenamine, or a prophylactic antibiotic. documented in this encounter [facility] [place] 02-27-2025 History of Present illness Narrative Images from the original note were not included. [address] [facility] [id number] Patient: Angela Ruth Date of : 1945 Encounter Date: 02/27/2025 History of Present Illness: Chief Complaint: 1 month follow up The patient is a 79 y.o. female, an established patient, and is here for follow-up. Please see her history below. The Myrbetriq was too expensive so she never started taking it. That her main concern is the frequent urinary tract infections. She states that the urgency is really just a problem for her when she has Urinary tract infection. On review of her records, here her most recent cultures: C&S 01/24/25: >100,000 E coli C&S 01/01/25: >100,000 E coli C&S 12/08/24: >100,000 E coli She denies any current Urinary tract infection symptoms. She has never smoked. She had a CT without contrast performed 02/13/2025. I am not able to see the films, but report states that kidneys were atrophic and there were a couple punctate stones in the right kidney. No hydronephrosis. Summary of old records: Notes from Dr. Kramer 12/19/24: The patient is a 79 y.o. female, [...] June as well as March 2024. Also [facility] 4 prior surgeries on L1-L5. PVR [...] Continues to use 1-2 pads per day. Urinalysis today: Recent Labs 02/27/25 1440 EXTPOCURBS Negative EXTPOCUKET Negative EXTPOCUPRO 1+ EXTPOCUNIT Negative EXTPOCUBLD Negative EXTPOCUPH 5.5 EXTPOCULEE Negative Last BUN and creatinine: Lab Results Component Value Date BUN 22 02/11/2024 Lab Results Component Value Date CREATININE 1.01 (H) 02/11/2024 Past Medical, Family, and Social History Update: [...] (benign paroxysmal positional vertigo) Brain tumor (benign) ([facility]) Breast disorder 4 biopsies Bronchitis 01/01/2017 Cancer ([facility]) Basal cell Carpal tunnel syndrome Cataract [...] Performed by Alexander Leach MD at [facility] ENDOSCOPY COSMETIC SURGERY 1984 DISCECTOMY 1989 Partial L4-5 EGD 2001 EYE SURGERY 2014 FOOT SURGERY 2009 Reattachment of tendon left foot with bone graft HIP SURGERY 2003 Excision of bursa left hip HYSTERECTOMY 1983 INJECTION BLOCK EPIDURAL STEROID LUMBAR/SACRAL Left L 5,1 NR Left 12/20/2020 Performed by Shubham Clifton MD at [facility] INJECTION BLOCK NERVE MEDIAL BRANCH right C 4/5,5/6 Right 05/22/2022 Performed by Shubham Clifton MD at [facility] INJECTION BLOCK NERVE MEDIAL BRANCH right C 4/5,5/6 Right 04/17/2022 Performed by Shubham Clifton MD at [facility] INJECTION CAUDAL EPIDURAL WITH CATHETER, STEROID N/A 03/07/2018 Performed by Shubham Clifton MD at [facility] LARGE JOINT BURSA: bilat hip Bilateral 12/10/2017 Performed by Shubham Clifton MD at [facility] INJECTION MEDIAL BRANCH NERVE BLOCK Bilateral L 4/5, 5/1 Bilateral 06/28/2017 Performed by Shubham Clifton MD at [facility] INJECTION MEDIAL BRANCH NERVE BLOCK Right L 2/3, 3/4 Right 12/08/2019 Performed by Shubham Clifton MD at [facility] INJECTION MEDIAL BRANCH NERVE BLOCK RIGHT L23 34 Right 01/19/2020 Performed by Shubham Clifton MD at [facility] INJECTION SI JOINT Bilateral 04/09/2017 Performed by Shubham Clifton MD at [facility] INJECTION SI JOINT Bilateral SI Joint Bilateral 05/31/2020 Performed by Shubham Clifton MD at [facility] INJECTION SI JOINT Left SI JOint Left 01/06/2019 Performed by Shubham Clifton MD at [facility] INJECTION SI JOINT Right SI Joint Right 06/09/2019 Performed by Shubham Clifton MD at [facility] INJECTION SPINE TRANSFORAMINAL Left L 4, 5 NR Left 09/24/2017 Performed by Shubham Clifton MD at [facility] INJECTION SPINE TRANSFORAMINAL Left L 5,1 Nroot Left 01/08/2023 Performed by Shubham Clifton MD at [facility] INJECTION SPINE TRANSFORAMINAL Right L 5,1 Nroot Right 11/27/2022 Performed by Shubham Clifton MD at [facility] STEROID EPI 1 WITH SEDATION Left 5,1 NR Left 05/08/2019 Performed by Shubham Clifton MD at [facility] KNEE ARTHROSCOPY 2010, 2013 KNEE SURGERY 2010 2013 Arthroscopy bilateral/repair meniscus right X2, left X1 LAMINECTOMY LUMBAR FORAMENOTOMY MULTI LEVEL L1-2 RIGHT/L2-3 BILATERAL/LUMBAR DRAIN INSERTION N/A 07/03/2021 Performed by Ileana Cortes MD at [facility] LAPAROTOMY OOPHERECTOMY Bilateral 1984 LUMBAR DISCECTOMY LUMBAR FUSION 2010 L3-5 LUMBAR LAMINECTOMY MICRO LUMBAR DISCECTOMY L5-S1/ FORAMINOTOMY L5-S1 Left 01/14/2017 Performed by Ileana Cortes MD at [facility] OOPHORECTOMY 1982 OTHER SURGICAL HISTORY Knee Arthroscopy With Medial Meniscus Repair OTHER SURGICAL HISTORY Spinal Diskectomy RADIO FREQUENCY ABLATION Left L 4/5, 5/1 Left 12/02/2018 Performed by Shubham Clifton MD at [facility] RADIO FREQUENCY ABLATION Left L 4/5, 5/1 Left 07/30/2017 Performed by Shubham Clifton MD at [facility] RADIO FREQUENCY ABLATION Left SI joint Left 03/31/2019 Performed by Shubham Clifton MD at [facility] RADIO FREQUENCY ABLATION Right L2/3, 3/4 Right 03/29/2020 Performed by Shubham Clifton MD at [facility] RADIOFREQUENCY ABLATION SPINAL Left Si joint Left 05/07/2017 Performed by Shubham Clifton MD at [facility] RADIOFREQUENCY ABLATION SPINAL Right C 4/5,5/6 Right 06/26/2022 Performed by Shubham Clifton MD at [facility] RADIOFREQUENCY ABLATION SPINAL RIGHT SI JOINT Right 05/21/2017 Performed by Shubham Clifton MD at [facility] RELEASE CARPAL TUNNEL Left 11/04/2021 Performed by Ileana Cortes MD at [facility] SHOULDER SURGERY 2011 Right rotator [...] wheezing or shortness of breath. PRO AIR ascorbic acid (VITAMIN C) 500 mg tablet Take 2 tablets (1,000 mg total) by mouth in the morning. aspirin 81 mg Take 1 tablet (81 mg total) by mouth in the morning. rbmtyxq-kmmyvzflsbrbx-tkcybcll (EXCEDRIN MIGRAINE) 250-250-65 mg per tablet Take 1 tablet by mouth every 6 (six) hours as needed for headaches. atorvastatin (LIPITOR) 40 mg tablet Take 1 tablet (40 mg total) by mouth in the morning. calcium carbonate-vitamin D3 600 mg(1,500mg) -800 units [...] 2 tablets (1,000 mg total) by mouth. mirabegron (MYRBETRIQ) 50 mg tablet extended release 24 hr Take 1 tablet (50 mg total) by mouth in the morning. 30 tablet 0 omeprazole (PriLOSEC) 40 mg capsule Take 1 [...] 1 tablet (20 mg total) before bedtime. amitriptyline (ELAVIL) 50 mg tablet Take 1 tablet (50 mg total) by mouth nightly. (Patient not taking: Reported on 02/27/2025) 90 tablet 3 buprenorphine (BUTRANS) 7.5 mcg/hour patch weekly Place 1 patch on the skin once a week. (Patient not taking: Reported on 02/27/2025) ferrous sulfate (FeroSuL) 325 (65 FE) mg tablet Take 1 tablet (325 mg total) by mouth in the morning and 1 tablet (325 mg total) in the evening. Take with meals. TAKE 1 TABLET BY MOUTH EVERY MORNING AND 1 TABLET EVERY EVENING WITH MEALS. (Patient not taking: Reported on 02/27/2025) 60 tablet 2 No current facility-administered medications for this visit. (All medications reviewed and updated by provider since last office visit or hospitalization) Allergies: Indocin [indomethacin], Lincocin [lincomycin], Lincosamides, Hktpoytz-[id number] antimigraine agents, Adhesive, Eggshell membrane, Influenza virus vaccines, Sulfa [...] chest pain and shortness of breath. Gastrointestinal: Negative for constipation, diarrhea, nausea, and vomitting. -per HPI Physical Exam: BP 97/59 Pulse 85 Ht 157.5 cm (5' 2 ) Wt 66.7 kg (147 lb) BMI 26.89 kg/m Constitutional: She appears well-developed. No distress. Pulmonary/Chest: Effort normal. No respiratory distress. Neurological: She is alert and oriented for age. Gait: uses a cane Nursing note and vitals reviewed. Assessment and Plan: Angela was seen today for follow-up. Diagnoses and all orders for this visit: Urge incontinence - POCT Urinalysis Auto, W/O Microscopy Frequent UTI Problem List Genitourinary Urge incontinence - Primary Overview 08/29/2024: Urge incontinence. Multifactorial including her back issues, constipation, caffeine consumption. Recommended decreasing caffeine as well as addressing constipation with stao-pok-jhvylcr agents. If no improvement can add beta 3 agonist 12/19/2024: No substantial improvement with decreased caffeine consumption and treatment of constipation. Plan to trial Myrbetriq 50 mg. She will monitor blood pressure at home. We will continue oxybutynin. 02/27/25: Myrbetriq too expensive. She reports her main concern is UTIs. Several recent cultures have been positive for E coli. CT shows punctate non obstructing stones in the right kidney. She will think over whether or not to proceed with cystoscopy or pursue other treatment options Current Assessment & Plan We discussed cranberry/D mannose supplements, topical estrogen cream, methenamine, or a prophylactic antibiotic. Relevant Orders POCT Urinalysis Auto, W/O Microscopy (Completed) Follow-up: Dr. Williams or me in 3-4 months in [place] MINH GALLAGHER This note was created with the assistance of a speech recognition program. While intending to generate a timely document that accurately reflects the content of the visit, no guarantee can be provided that every grammatical or spelling mistake has been or will be identified or corrected. Thank you for your understanding. MINH Gallagher 02/27/25 1515 documented in this encounter [facility] 02-27-2025 Instructions MINH Gallagher - 02/27/2025 2:30 PM EDT For Urinary tract infection prevention, we could consider having you try cranberry and or D mannose supplements. Other options include topical estrogen cream, methenamine, or a daily prophylactic antibiotic. Your recent CT showed you have a few small stones in the right kidney but they were not causing any problems at that time. These are not likely to be the source for your infections. The only way to make sure the bladder is okay is to have Dr. Kramer look in there with the scope. This procedures called cystoscopy. We could also consider going forward with that testing to make sure there is no structural reason for the infections Think over your options and send me a note through MyChart or call and let me know what you want to do. documented in this encounter [facility] 02-19-2025 Telephone encounter Note Approvals with refills [facility] 02-19-2025 Miscellaneous Notes Approvals with refills documented in this encounter [facility] 02-16-2025 History of Present illness Narrative Patient here for Evenity injection Vitals WNL Injection given sub q in the Right arm Patient tolerated well Calendar given for next injection documented in this encounter [facility] 02-12-2025 Telephone encounter Note Nancy- pharmacy from [facility] calling to let you know that they received rx for remeron and they cannot fill due to drug interaction with amitriptyline prescribed by Dr. Dorsey. It is a category X- cannot fill. Increased risk of serotonin syndrome. She has been on amitriptyline for years. Please advise jil. Thank you. [facility] 02-12-2025 Miscellaneous Notes Nancy- pharmacy from [facility] calling to let you know that they received rx for remeron and they cannot fill due to drug interaction with amitriptyline prescribed by Dr. Dorsey. It is a category X- cannot fill. Increased risk of serotonin syndrome. She has been on amitriptyline for years. Please advise jil. Thank you. documented in this encounter [facility] 02-12-2025 History of Present illness Narrative Images from the original note were not included. Subjective: Patient ID: Angela Ruth is a 79 y.o. female presenting for neurological follow-up. History [...] tension NEVAREZ, migraine 1-2 times a month 02/2024: evening tension NEVAREZ, migraine 1-2 times a month 06/2024: daily headache, originating JAIR 01/2025: 1-2 headaches/month Current Meds: Amitriptyline 50 mg ASA Atorvastatin Buprenorphine Carvedilol 25 mg BID D3 Fenofibrate Hydralazine Lexapro Lisinopril-HCTZ Lunesta 1 mg Methocarbamol Oxybutynin XL Procardia XL Robaxin Synthroid Ubrelvy Previous Meds: Depakote (migraines) Fioricet Gabapentin 600 mg TID Inderal (tremors) Midrin Migraine cocktails [place] PRN Occipital nerve blocks (last 03/2021) Propranolol Tizanidine 4-8 mg HS Topamax 100 mg (100 + [...] enhancing pathology intracranially. Bilateral chronic maxillary sinusitis. CT brain (02/11/2024): No acute intracranial abnormality, by CT. Possible small right posterior fossa extra-axial lesion which may reflect a meningioma. Consider nonemergent MR brain with contrast to assess this observation. CT cervical (02/11/2024): No acute cervical spine pathology. MRI brain (03/02/2024): 1.2 cm enhancing mass at the right cerebellopontine angle with leading differential including vestibular schwannoma and meningioma. Pertinent Medical History: Essential tremor (treated with [...] is constantly tired. Current Visit: Seen in January 2025, she returns for a follow up appointment. She states that she is doing much better neurologically. She only has 1-2 headaches a month. They do originate in her bilateral occiput. She has been working with pain management. They may have completed occipital nerve blocks with good improvements in her headaches. She is now taking Robaxin to help with the muscle tightness. She continues to do the exercises and stretches she learned at physical therapy. Ubrelvy typically works well when the headaches turn into migraines. She continues to feel off-balance most of the time. She fell in December. She is working with PT for her balance again. She saw Dr. Cortes regarding a 1.5 cm lesion in the CPA angle on the right side (likely an acoustic neuroma vs meningioma). He referred her to the [facility] for evaluation for possible gamma knife intervention. The plan is for her to have a repeat MRI brain at the 6 month lenny. They did not think that it is causing her balance difficulties. They recommended that other causes of imbalance be considered and that she follow up with audiology regarding her hearing loss. She has been taking 50 mg amitriptyline for sleep. She usually gets about 6-7 hours of sleep a night total while taking it. She may wake up once in the middle of the night for about an hour. She then sleeps another 3-4 hours. The following portions of the patient's history [...] (benign paroxysmal positional vertigo) Brain tumor (benign) ([facility]) Breast disorder 4 biopsies Bronchitis 01/01/2017 Cancer ([facility]) Basal cell Carpal tunnel syndrome [...] Performed by Alexander Leach MD at [facility] ENDOSCOPY COSMETIC SURGERY 1984 DISCECTOMY 1989 Partial L4-5 EGD 2001 EYE SURGERY 2014 FOOT SURGERY 2009 Reattachment of tendon left foot with bone graft HIP SURGERY 2003 Excision of bursa left hip HYSTERECTOMY 1984 INJECTION BLOCK EPIDURAL STEROID LUMBAR/SACRAL Left L 5,1 NR Left 12/20/2020 Performed by Shubham Clifton MD at [facility] INJECTION BLOCK NERVE MEDIAL BRANCH right C 4/5,5/6 Right 05/22/2022 Performed by Shubham Clifton MD at [facility] INJECTION BLOCK NERVE MEDIAL BRANCH right C 4/5,5/6 Right 04/17/2022 Performed by Shubham Clifton MD at [facility] INJECTION CAUDAL EPIDURAL WITH CATHETER, STEROID N/A 03/07/2018 Performed by Shubham Clifton MD at [facility] INJECTION LARGE JOINT BURSA: bilat hip Bilateral 12/10/2017 Performed by Shubham Clifton MD at [facility] INJECTION MEDIAL BRANCH NERVE BLOCK Bilateral L 4/5, 5/1 Bilateral 06/28/2017 Performed by Shubham Clifton MD at [facility] INJECTION MEDIAL BRANCH NERVE BLOCK Right L 2/3, 3/4 Right 12/08/2019 Performed by Shubham Clifton MD at [facility] INJECTION MEDIAL BRANCH NERVE BLOCK RIGHT L23 34 Right 01/19/2020 Performed by Shubham Clifton MD at [facility] INJECTION SI JOINT Bilateral 04/09/2017 Performed by Shubham Clifton MD at [facility] INJECTION SI JOINT Bilateral SI Joint Bilateral 05/31/2020 Performed by Shubham Clifton MD at [facility] INJECTION SI JOINT Left SI JOint Left 01/06/2019 Performed by Shubham Clifton MD at [facility] INJECTION SI JOINT Right SI Joint Right 06/09/2019 Performed by Shubham Clifton MD at [facility] INJECTION SPINE TRANSFORAMINAL Left L 4, 5 NR Left 09/24/2017 Performed by Shubham Clifton MD at [facility] INJECTION SPINE TRANSFORAMINAL Left L 5,1 Nroot Left 01/08/2023 Performed by Shubham Clifton MD at [facility] INJECTION SPINE TRANSFORAMINAL Right L 5,1 Nroot Right 11/27/2022 Performed by Shubham Clifton MD at [facility] INJECTION STEROID EPI 1 WITH SEDATION Left 5,1 NR Left 05/08/2019 Performed by Shubham Clifton MD at [facility] KNEE ARTHROSCOPY 2010, 2013 KNEE SURGERY 2010 2013 Arthroscopy bilateral/repair meniscus right X2, left X1 LAMINECTOMY LUMBAR FORAMENOTOMY MULTI LEVEL L1-2 RIGHT/L2-3 BILATERAL/LUMBAR DRAIN INSERTION N/A 07/03/2021 Performed by Ileana Cortes MD at [facility] LAPAROTOMY OOPHERECTOMY Bilateral 1984 LUMBAR DISCECTOMY LUMBAR FUSION 2009 L3-5 LUMBAR LAMINECTOMY MICRO LUMBAR DISCECTOMY L5-S1/ FORAMINOTOMY L5-S1 Left 01/14/2017 Performed by Ileana Cortes MD at [facility] OOPHORECTOMY 1982 OTHER SURGICAL HISTORY Knee Arthroscopy With Medial Meniscus Repair OTHER SURGICAL HISTORY Spinal Diskectomy RADIO FREQUENCY ABLATION Left L 4/5, 5/1 Left 12/02/2018 Performed by Shubham Clifton MD at [facility] RADIO FREQUENCY ABLATION Left L 4/5, 5/1 Left 07/30/2017 Performed by Shubham Clifton MD at [facility] RADIO FREQUENCY ABLATION Left SI joint Left 03/31/2019 Performed by Shubham Clifton MD at [facility] RADIO FREQUENCY ABLATION Right L2/3, 3/4 Right 03/29/2020 Performed by Shubham Clifton MD at [facility] RADIOFREQUENCY ABLATION SPINAL Left Si joint Left 05/07/2017 Performed by Shubham Clifton MD at [facility] RADIOFREQUENCY ABLATION SPINAL Right C 4/5,5/6 Right 06/26/2022 Performed by Shubham Clifton MD at [facility] RADIOFREQUENCY ABLATION SPINAL RIGHT SI JOINT Right 05/21/2017 Performed by Shubham Clifton MD at [facility] RELEASE CARPAL TUNNEL Left 11/04/2021 Performed by Ileana Cortes MD at [facility] SHOULDER SURGERY 2012 Right rotator cuff [...] Past Smokeless tobacco: Never Vaping Use Vaping status: Never Used Substance and Sexual Activity Alcohol use: No Drug use: No Sexual activity: Not Currently control/protection: Post-menopausal Other Topics Concern Caffeine Use Yes Social History Narrative Lives alone in a one story home with a ramp and one step into the home. 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 Has a tub/shower bathing. Has a rollator; neighbor will help after surgery. Has a cat Social Drivers of Health Financial Resource Strain: Low Risk (04/02/2024) Received from [facility] Overall Financial Resource Strain (CARDIA) Difficulty of Paying Living Expenses: Not very hard Food Insecurity: No Food Insecurity (02/12/2025) Hunger Screening Food Insecurity - Worry: Never True Food Insecurity - Inability: Never True Transportation Needs: Unknown (04/02/2024) Received from [facility] PRAPARE - Transportation Lack of Transportation (Medical): Not on file Lack of Transportation (Non-Medical): No Physical Activity: Insufficiently Active (04/02/2024) Received from [facility] Exercise Vital Sign Days of Exercise per Week: 3 days Minutes of Exercise per Session: 10 min Stress: Stress Concern Present (04/02/2024) Received from [facility] [place] [facility] [employer] [facility] - Occupational Stress Questionnaire Feeling of Stress : Rather much Social Connections: Moderately Integrated (04/02/2024) Received from [facility] Social Connection and Isolation Panel [NHANES] Frequency of Communication with Friends and Family: More than three times a week Frequency of Social Gatherings with Friends and Family: More than three times a week Attends Denominational Services: More than 4 times per year Active Member of Clubs or Organizations: Yes Attends Club or Organization Meetings: More than 4 times per year Marital Status: Interpersonal Safety: Not on file Housing Instability: High Risk (04/02/2024) Received from [facility] Housing Stability Vital Sign Unable to Pay for Housing in the Last Year: Yes Number of Places Lived in the Last Year: 1 Unstable Housing in the Last Year: No Family History Problem Relation Age of Onset [...] wheezing or shortness of breath. PRO AIR ascorbic acid (VITAMIN C) 500 mg tablet Take 2 tablets (1,000 mg total) by mouth in the morning. aspirin 81 mg Take 1 tablet (81 mg total) by mouth in the morning. giyicuy-zqplhuydpgyaw-yntqughu (EXCEDRIN MIGRAINE) 250-250-65 mg per tablet Take [...] AND 1 TABLET EVERY EVENING WITH MEALS. fexofenadine (ALLY) 180 mg tablet Take 1 tablet (180 mg total) by mouth daily with breakfast. hydrALAZINE (APRESOLINE) 100 mg tablet Take one twice a day may take an additional 50mg daily if Systolic BP is greater than 170 (Patient taking differently: Take one a day may take an additional 50mg daily if Systolic BP is greater than 170) L.acidoph/B.animalis/B.longum (FLORAJEN DIGESTION ORAL) Take 1 tablet by mouth in the morning. levothyroxine (SYNTHROID, LEVOTHROID) 150 MCG tablet 6 days a week lisinopril-hydroCHLOROthiazide (ZESTORETIC) 20-12.5 mg per tablet Take 1 tablet by mouth in the morning. magnesium 250 mg tablet Take 2 tablets (500 mg total) by mouth in the morning. Indications: for migraine prevention. At supper time. methocarbamoL (ROBAXIN) 500 mg tablet Take 2 tablets (1,000 mg total) by mouth. mirabegron (MYRBETRIQ) 50 mg tablet extended release 24 hr Take 1 tablet (50 mg total) by mouth in the morning. omeprazole (PriLOSEC) 40 mg capsule Take 1 [...] was reviewed by CHACE Rayo. Objective: BP 116/78 (BP Site: Left Arm, BP Postition: Sitting, BP CUFF SIZE: M (9-13 inches)) Pulse 77 Ht 157.5 cm (5' 2 ) Wt 67.5 kg (148 lb 12.8 oz) BMI 27.22 kg/m Physical Exam: Mental Status: Orientation: Oriented. [...] .Pulmonary: Effort: Pulmonary effort is normal. Assessment/Plan: 02/13/2024 OV: Seen in January 2025, she returns for a follow up appointment. She states that she is doing much better neurologically. She only has 1-2 headaches a month. They do originate in her bilateral occiput. She has been working with pain management. They may have completed occipital nerve blocks with good improvements in her headaches. She is now taking Robaxin to help with the muscle tightness. She continues to do the exercises and stretches she learned at physical therapy. Ubrelvy typically works well when the headaches turn into migraines. She continues to feel off-balance most of the time. She fell in December. She is working with PT for her balance again. She saw Dr. Cortes regarding a 1.5 cm lesion in the CPA angle on the right side (likely an acoustic neuroma vs meningioma). He referred her to the [facility] for evaluation for possible gamma knife intervention. The plan is for her to have a repeat MRI brain at the 6 month lenny. They did not think that it is causing her balance difficulties. They recommended that other causes of imbalance be considered and that she follow up with audiology regarding her hearing loss. She has been taking 50 mg amitriptyline for sleep. She usually gets about 6-7 hours of sleep a night total while taking it. She may wake up once in the middle of the night for about an hour. She then sleeps another 3-4 hours. Problem List Items Addressed This Visit Cardiovascular and Mediastinum Migraine without aura and without status migrainosus, not intractable - Primary Relevant Medications UBRELVY 100 mg tablet amitriptyline (ELAVIL) 50 mg tablet Nervous and Auditory Essential tremor Other Psychophysiological insomnia Relevant Medications amitriptyline (ELAVIL) 50 mg tablet Patient noted to have elevated BMI and [...] more than 2 doses in 24-hours. #7. Continue working with Physical Therapy to loosen neck and shoulder, back, buttocks, and leg muscles. Please use ultrasound, massage, e-stim, cervical traction and other manual therapies. Can do exercises and stretches at home. #8. Return to office in 6 months, earlier if needed (SHEILA is fine) Total time spent was 30 minutes: Preparing to see the patient (e.g., review of tests) Obtaining and/or reviewing separately obtained history Performing a medically appropriate examination and/or evaluation Counseling and educating the patient/family/caregiver Ordering medications, tests, or procedures Referring and communicating with other health acute care clinical nurse specialist (not separately reported) Documenting clinical information in the electronic or other health record Independently interpreting results (not separately reported) and communicating results to the patient/family/caregiver Care coordination (not separately reported) - Yoanna Dorsey DNP, CHACE 02/12/25 8:31 AM CHACE Rayo 02/12/25 0831 documented in this encounter [facility] 02-12-2025 Instructions CHACE Rayo - 02/12/2025 8:00 AM EDT #1. Good sleep hygiene. Go to bed [...] more than 2 doses in 24-hours. #7. Continue working with Physical Therapy to loosen neck and shoulder, back, buttocks, and leg muscles. Please use ultrasound, massage, e-stim, cervical traction and other manual therapies. Can do exercises and stretches at home. #8. Return to office in 6 months, earlier if needed (VIDYO is fine) documented in this encounter [facility] 02-09-2025 Miscellaneous Notes ----- Message from HAVEN Osullivan sent at 02/09/2025 8:21 AM EDT ----- Regarding: RE: re schedule appt Really any day is fine to reschedule except for Wednesday. ----- Message ----- From: Blanche Aviles CMA Sent: 02/09/2025 7:43 AM EDT To: [facility] Subject: re schedule appt Pt called and said that she needs to reschedule her appt for today and when someone calls she can explain when she needs it rescheduled for. Pt left a voicemail yesterday after hours. I can call and reschedule her if you let me know what's available. documented in this encounter [facility] 02-09-2025 Telephone encounter Note ----- Message from HAVEN Osullivan sent at 02/09/2025 8:21 AM EDT ----- Regarding: RE: re schedule appt Really any day is fine to reschedule except for Wednesday. ----- Message ----- From: Blanche Aviles CMA Sent: 02/09/2025 7:43 AM EDT To: [facility] Subject: re schedule appt Pt called and said that she needs to reschedule her appt for today and when someone calls she can explain when she needs it rescheduled for. Pt left a voicemail yesterday after hours. I can call and reschedule her if you let me know what's available. [facility] [facility] 01-23-2025 History of Present illness Narrative Angela Ruth is a 79 y.o. female presents with chief complaint of Follow-up HPI: HPI Continues with chest congestion fatigue and cough s/p influenza a History of Present Illness MEDICATIONS Current: Tylenol SUBJECTIVE: MEDICATIONS: Current Outpatient Medications Medication Instructions albuterol HFA 90 mcg/act inhaler 2 puffs, Inhalation, Every 4 hours amitriptyline (ELAVIL) 50 mg, Oral, Nightly Ascorbic Acid (vitamin C) 1000 MG tablet Every 24 hours aspirin 81 mg, Daily RT atorvastatin (LIPITOR) 40 mg, Oral, Daily buprenorphine (Butrans) 7.5 MCG/HR 1 patch, Weekly Calcium Carb-Cholecalciferol 600-20 MG-MCG tablet 600 mg, Nightly carvedilol (COREG) 25 mg, Oral, 2 times daily cholecalciferol (VITAMIN D-3) 1,000 Units, Daily before breakfast escitalopram (LEXAPRO) 20 mg, Oral, Daily with evening meal Evenity 210 mg, Every 30 days famotidine (PEPCID) 20 mg, Oral, Nightly fenofibrate (TRIGLIDE) 160 mg, Oral, Every morning [...] stomach Orally Wed thru Sat, skip Wednesday lisinopril-hydroCHLOROthiazide 20-12.5 MG tablet 1 tablet, Oral, Daily RT MAGNESIUM PO 500 mg, Daily RT methocarbamol (ROBAXIN) 1,000 mg, Nightly mirtazapine (REMERON) 15 mg, Oral, Nightly multivitamin with minerals (Centrum) [...] Past Surgical History: Procedure Laterality Date ADENOIDECTOMY 195 APPENDECTOMY 1965 BREAST BIOPSY x4 - [id number] CHOLECYSTECTOMY 2002 EYE SURGERY 01/21/2023 retinal repair [facility] HEMANGIOMA EXCISION 1946 from upper back HYSTERECTOMY 1984 KNEE SURGERY Bilateral arthroscopic knee surgery x3 (Rx2, Lx1) ([id number]) LAPAROTOMY OOPHERECTOMY 1985 LUMBAR DISCECTOMY 1989 partial LUMBAR DISCECTOMY 01/14/2017 Microdiscetomy L5-S1 LUMBAR DISCECTOMY 07/03/2021 L1-2 partial discectomy, L1-2, L2-3 cleaning out of stenosis in the spinal canal [facility] LUMBAR EPIDURAL INJECTION 12/20/2020 Dr Clifton [...] COPD Father Dre Baer Cancer Father Dre Beardrebekah Arthritis Father Dre Beardrebekah Asthma Father Dre Beardrebekah Stroke Paternal Grandfather Tra Baer Diabetes Paternal [...] Depression - At risk (07/13/2024) Received from [facility] PHQ-2 Total Score: 3 REVIEW OF SYMPTOMS: Review of Systems OBJECTIVE: Visit Vitals BP 122/74 (BP Location: Right arm, Patient Position: Sitting, BP Cuff Size: Adult) Pulse 87 Temp 97.4 F (Tympanic) Resp 18 Ht 5' 3 Wt 143 lb 3.2 oz SpO2 96% BMI 25.37 kg/m Smoking Status Never BSA 1.7 m Physical Exam Constitutional: Appearance: Normal appearance. [...] Normal breath sounds. No wheezing or rhonchi. Comments: Harsh cough Musculoskeletal: General: No swelling. Cervical back: Normal [...] bronchitis, unspecified organism - Primary Relevant Medications azithromycin (Zithromax) 250 MG tablet predniSONE (Deltasone) 10 MG tablet Flank pain Relevant Orders POCT Urinalysis dipstick (Completed) Urinalysis with reflex microscopic (clean catch) Urine culture (clean catch) Assessment & Plan documented in this encounter [facility] 01-15-2025 History of Present illness Narrative Images from the original note were not included. Angela Ruth is a 79 y.o. female presents with chief complaint of Sore Throat and Cough HPI: HPI History of Present Illness The patient presents for evaluation of influenza. She began experiencing symptoms indicative of influenza on Wednesday. She reports a slight improvement in her condition compared to the previous day. She has a known allergy to the influenza vaccine. She has previously found relief from coughing with Lynette Ramires. Additionally, she has an albuterol inhaler at her disposal at home. ALLERGIES She is allergic to the INFLUENZA VACCINE. MEDICATIONS Current: Albuterol inhaler. Past: Tessalon Perles. SUBJECTIVE: MEDICATIONS: Current Outpatient Medications Medication Instructions albuterol HFA 90 mcg/act inhaler 2 puffs, Inhalation, Every 4 hours amitriptyline (ELAVIL) 50 mg, Oral, Nightly Ascorbic [...] 20 mg, Oral, Daily with evening meal Evenity 210 mg, Every 30 days famotidine (PEPCID) 20 mg, Oral, Nightly fenofibrate (TRIGLIDE) 160 mg, Oral, Every morning [...] Daily RT methocarbamol (ROBAXIN) 1,000 mg, Nightly mirtazapine (REMERON) 15 mg, Oral, Nightly multivitamin with minerals (Centrum) [...] 1953 APPENDECTOMY 1965 BREAST BIOPSY x4 - [id number] CHOLECYSTECTOMY 2001 EYE SURGERY 01/21/2023 retinal repair [facility] HEMANGIOMA EXCISION 1946 from upper back HYSTERECTOMY 1984 KNEE SURGERY Bilateral arthroscopic knee surgery x3 (Rx2, Lx1) (1020-1972) LAPAROTOMY OOPHERECTOMY 1985 LUMBAR DISCECTOMY 1989 partial LUMBAR DISCECTOMY 01/14/2017 Microdiscetomy L5-S1 LUMBAR DISCECTOMY 07/03/2021 L1-2 partial discectomy, L1-2, L2-3 cleaning out of stenosis in the spinal canal [facility] LUMBAR EPIDURAL INJECTION 12/20/2020 Dr Clifton [...] Brother Jesús Baer Cancer Mother's Sister Jannette Nasciemnto Cancer Mother's Sister Nisa Dunham Cancer Mother's [...] Depression - At risk (07/13/2024) Received from [facility] PHQ-2 Total Score: 3 REVIEW OF SYMPTOMS: Review of Systems OBJECTIVE: Visit Vitals BP 130/66 (BP Location: Right arm, Patient Position: Sitting, BP Cuff Size: Adult) Pulse 86 Resp 18 Ht 5' 3 Wt 147 lb SpO2 94% BMI 26.04 kg/m Smoking Status Never BSA 1.72 m Physical Exam Constitutional: Comments: fatigued HENT: Head: Normocephalic and atraumatic. Right Ear: [...] Items Addressed This Visit None Visit Diagnoses Influenza A - Primary Relevant Medications oseltamivir (Tamiflu) 75 MG capsule benzonatate (Tessalon) 200 MG capsule Sore throat Relevant Orders STATUS COVID-19/FLU (Completed) Acute cough Relevant Orders STATUS COVID-19/FLU (Completed) Assessment & Plan 1. Influenza. Her oxygen saturation level is slightly reduced at 94 percent but not to a degree that necessitates hospitalization. A prescription for Tamiflu will be initiated. She is advised to take Tylenol for symptomatic relief of aches, maintain adequate hydration, and engage in mild physical activity such as walking to promote lung health and prevent pneumonia. A prescription for Tessalon Perles has been provided for cough management. She is instructed to use her albuterol inhaler regularly during her illness. If her condition deteriorates, she should contact us or seek immediate medical attention at the emergency room. Follow-up The patient will follow up in 1 month. documented in this encounter [facility] 01-11-2025 History of Present illness Narrative Patient does not have a current calcium completed Patient will have calcium done and will call to re-schedule documented in this encounter [facility] 01-09-2025 History of Present illness Narrative Images from the original note were not included. Subjective Patient ID: Angela Ruth is a 79 y.o. female who presents for Hoarseness Pt reports a many year h/o trouble with her voice. 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 Tx with speech tx at the time. I tx for LPRD in 2019 and pt still following reflux regimen Review of Systems All other systems reviewed and are negative. Family History Problem Relation Name Age of [...] illness Neg Hx Drug abuse Neg Hx Active Ambulatory Problems Diagnosis Date Noted Trochanteric bursitis of both hips 11/03/2017 Spinal stenosis of lumbar region 08/14/2011 Primary insomnia 06/04/2023 Primary osteoarthritis of right knee 09/17/2021 Recurrent falls 11/01/2017 Other specified depressive episodes ([facility]) 02/12/2017 Nocturnal leg cramps 06/04/2023 Mixed stress and urge urinary incontinence 10/29/2020 Major depressive disorder, single episode, in full remission ([facility]) 10/24/2019 Hyperlipidemia ([facility]) 11/08/2015 History of lumbar fusion 12/11/2015 History of depression 2018 Gastroesophageal reflux disease without esophagitis 09/15/2021 Herniation of lumbar intervertebral disc with radiculopathy 01/07/2017 Essential tremor 12/12/2018 Essential hypertension ([facility]) 03/13/2013 Degeneration of lumbosacral intervertebral disc 08/14/2016 Chronic idiopathic constipation 07/10/2019 Bilateral occipital neuralgia 03/02/2019 Asthma ([facility]) 03/26/2016 Age-related osteoporosis without current pathological fracture ([facility]) 06/04/2023 Acquired hypothyroidism ([facility]) 09/29/2019 1st degree AV block 06/10/2021 Bilateral nephrolithiasis 03/02/2023 Stage 3b chronic kidney disease (CKD) ([facility]) 06/04/2023 History of falling 11/04/2023 Lung nodule 02/15/2024 Brain lesion 02/15/2024 Balance problem 06/12/2019 Impingement syndrome of right shoulder 08/14/2011 Resolved Ambulatory Problems Diagnosis Date Noted Adjustment disorder with anxiety (CMS/HCC) 05/04/2023 Migraine without status migrainosus, not intractable (CMS/HCC) 06/04/2023 Lumbago with sciatica, right side 06/04/2023 Disc displacement, lumbar 05/05/2019 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 01/14/2017 Cervical spondylosis without myelopathy 04/01/2022 Age related osteoporosis (CMS/HCC) 12/19/2019 Past Medical History: Diagnosis Date Allergic Allergic rhinitis Back pain Basal cell carcinoma Benign essential hypertension (CMS/HCC) Bilateral carpal tunnel syndrome Chronic kidney disease Chronic pain Depression (CMS/HCC) GERD (gastroesophageal reflux disease) Sky's thyroiditis (CMS/HCC) HL (hearing loss) Hypothyroidism (CMS/HCC) Laryngitis Migraine (CMS/HCC) Neuromuscular disorder (CMS/HCC) Osteoarthritis Osteopenia Osteoporosis (CMS/HCC) Scoliosis Subdural hematoma (CMS/HCC) 12/2017 Urinary tract infection Vertigo Past Surgical History: Procedure Laterality Date ADENOIDECTOMY 195 APPENDECTOMY 1965 BREAST BIOPSY x4 - [id number] CHOLECYSTECTOMY 2002 EYE SURGERY 01/21/2023 retinal repair [facility] HEMANGIOMA EXCISION 1946 from upper back HYSTERECTOMY 1984 KNEE SURGERY Bilateral arthroscopic knee surgery x3 (Rx2, Lx1) ([id number]) LAPAROTOMY OOPHERECTOMY 1985 LUMBAR DISCECTOMY 1989 partial LUMBAR DISCECTOMY 01/14/2017 Microdiscetomy L5-S1 LUMBAR DISCECTOMY 07/03/2021 L1-2 partial discectomy, L1-2, L2-3 cleaning out of stenosis in the spinal canal [facility] LUMBAR EPIDURAL INJECTION 12/20/2020 Dr Clifton RADIOFREQUENCY ABLATION 03/29/2020 lumbar ROTATOR CUFF REPAIR Right 2012 SPINAL FUSION 2010 L3-L5 TONSILLECTOMY 195 TRIGGER FINGER RELEASE Right 1995 release of Dequervan's tendon - R wrist TRIGGER FINGER RELEASE Right 05/16/2018 Allergies Allergen Reactions Indomethacin Unknown fainting Lincomycin [...] eggs Penicillins Rash Wound Dressing Adhesive Rash Current Outpatient Medications on File Prior to Visit Medication Sig Dispense Refill albuterol HFA 90 mcg/act inhaler Inhale 2 puffs every 4 (four) hours. 18 g 11 amitriptyline (Elavil) 50 MG tablet Take 1 tablet (50 mg) by mouth at bedtime 90 tablet 3 Ascorbic Acid (vitamin C) 1000 MG tablet 1 (one) time each day at the same time. aspirin 81 MG EC tablet Take 81 mg by mouth in the morning. atorvastatin (Lipitor) 40 MG tablet Take 1 tablet (40 mg) by mouth Daily 90 tablet 3 buprenorphine (Butrans) 7.5 MCG/HR Place 1 patch on the skin 1 (one) time per week. Calcium Carb-Cholecalciferol 600-20 MG-MCG tablet Take 600 mg by mouth at bedtime. carvedilol (Coreg) 25 MG tablet Take 1 tablet (25 mg) by mouth every 12 (twelve) hours 200 tablet 3 cholecalciferol (Vitamin D-3) 25 MCG (1000 UT) tablet 1,000 Units in the morning. Take before meals. escitalopram (Lexapro) 20 MG tablet Take 1 tablet (20 mg) by mouth in the evening. Take with meals 100 tablet 3 famotidine (Pepcid) 20 MG tablet Take 1 tablet (20 mg) by mouth at bedtime 90 tablet 3 fenofibrate (Triglide) 160 MG tablet Take 1 tablet (160 mg) by mouth in the morning. 40 tablet 11 ferrous sulfate 325 (65 Fe) MG tablet Take 1 tablet (325 mg) by mouth in the morning and 1 tablet (325 mg) in the evening. Take with meals. 200 tablet 3 fexofenadine (Ally Allergy) 180 MG tablet 1 (one) time each day at the same time. fluticasone (Flonase) 50 MCG/ACT nasal spray Administer 1-2 sprays into each nostril in the morning. Shake gently. Before first use, prime pump. After use, clean tip and replace cap.. 16 g 2 hydrALAZINE (Apresoline) 100 MG tablet Take 100 mg by mouth in the morning. hydrALAZINE (Apresoline) 50 MG tablet Take 50 mg by mouth Only if bp is above 170, an hour after taking 100mg hydralazine. Lactobacillus (Florajen Women) capsule as directed Orally levothyroxine (Synthroid, Levoxyl) 150 MCG tablet 1 tablet in the morning on an empty stomach Orally Mon thru Wed, skip Wednesday lisinopril-hydroCHLOROthiazide 20-12.5 MG tablet TAKE 1 TABLET BY MOUTH IN THE MORNING 90 tablet 0 MAGNESIUM PO Take 500 mg by mouth in the morning. methocarbamol (Robaxin) 500 MG tablet Take 1,000 mg by mouth at bedtime mirtazapine (Remeron) 15 MG tablet Take 1 tablet (15 mg) by mouth at bedtime 90 tablet 1 multivitamin with minerals (Centrum) 9-200 mg-mcg tablet split tablet multivitamin Multiple Vitamins omeprazole (PriLOSEC) [address] capsule Take 1 capsule (40 mg) by mouth in the morning. 100 capsule 11 oxybutynin XL (Ditropan-XL) 10 MG 24 hr tablet take 1 tablet by mouth once daily 90 tablet 3 zafirlukast (Accolate) 20 MG tablet TAKE 1 TABLET BY MOUTH IN THE MORNING AND 1 AT BEDTIME 180 tablet 0 [DISCONTINUED] alendronate (Fosamax) 70 MG tablet Take 70 mg by mouth every 7 (seven) days [DISCONTINUED] atorvastatin (Lipitor) 40 MG tablet take 1 tablet by mouth once daily 90 tablet 3 [DISCONTINUED] escitalopram (Lexapro) 20 MG tablet Take 1 tablet (20 mg) by mouth in the evening. Take with meals 100 tablet 3 [DISCONTINUED] nitrofurantoin, macrocrystal-monohydrate, (Macrobid) 100 MG capsule Take 1 capsule (100 mg) by mouth in the morning and 1 capsule (100 mg) before bedtime. Do all this for 7 days. 14 capsule 0 No current facility-administered medications on file prior to visit. Objective Last Recorded Vitals Vitals: 01/09/25 1353 BP: 108/62 Pulse: 87 ENT Physical Exam Constitutional Appearance: patient appears well-developed, well-nourished and well-groomed, Head and Face Appearance: head appears normal and face appears atraumatic; Ear Ear Canals: right ear canal normal; left ear canal normal; Tympanic Membranes: right tympanic membrane normal; left tympanic membrane normal; Nose External Nose: nares patent bilaterally; external nose normal; Internal Nose: septum normal; Oral Cavity/Oropharynx Tongue: normal; Oral mucosa: normal; Hard palate: normal; Soft palate: normal; Tonsils: normal; Neck Neck: neck normal; neck palpation normal; Thyroid: thyroid normal; Respiratory Inspection: breathing unlabored; normal breathing rate; Auscultation: breath sounds are clear; Cardiovascular Inspection: extremities are warm and well perfused; no peripheral edema present; Auscultation: regular rate and rhythm; Patient ID: Angela Ruth is a 79 y.o. female. Procedures A diagnostic flexible fiberoptic laryngoscopy was performed. The flexible fiberoptic laryngoscope was placed into the nose and advanced to the level of the tip of the epiglottis. Examination of the larynx including both surfaces of the epiglottis false and true vocal folds, arytenoids and surrounding mucosal surfaces show no evidence of lesion, ulceration or mass. There is moderate TVC atrophy evident on exam. Normal bilateral true vocal fold motion is present. 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 I will refer pt to [facility] ne[facility] at [facility] for tx. Consider laryngology referral for TVF augmentation if no help documented in this encounter [facility] 01-01-2025 History of Present illness Narrative Patient here for UA Dip. Dip added to chart and sent for culture documented in this encounter [facility] 01-01-2025 Telephone encounter Note Are you able to have her come in and give us a specimen in the office for a nurse visit? We can run a test in the office during the nurse visit and send for culture and sensitivity if needed but we will need her to get the specimen while in the office during the nurse visit. [facility] 01-01-2025 Miscellaneous Notes Are you able to have her come in and give us a specimen in the office for a nurse visit? We can run a test in the office during the nurse visit and send for culture and sensitivity if needed but we will need her to get the specimen while in the office during the nurse visit. Pt is having symptoms of a UTI again. She was on generic Macrobid last month (12/11/24) and she said it helped. She was wondering if she could just bring in her urine again. Her symptoms are: Cloudy urine, painful urination, burning I also sent a message through teams, but sent this also, just to be safe :) I told pt I'll call her back and let her know :) documented in this encounter [facility] 01-01-2025 Telephone encounter Note Pt is having symptoms of a UTI again. She was on generic Macrobid last month (12/11/24) and she said it helped. She was wondering if she could just bring in her urine again. Her symptoms are: Cloudy urine, painful urination, burning I also sent a message through teams, but sent this also, just to be safe :) I told pt I'll call her back and let her know :) [facility] 12-26-2024 History of Present illness Narrative Images [...] Flowsheet Row Office Visit from 12/26/2024 in [facility] with Bia Cao MD Hospital Information ED, Hospital or Shelter Facility Discharge? ED Patient has been contacted within 1 week of being seen in the ED Yes Diagnosis Fall Discharge Date 12/23/24 Discharged To: Home Setting Discharge Hospital [facility] Engagement Call Start Time 925 Admission [...] 3 APPENDECTOMY 1965 BREAST BIOPSY x4 - [id number] CHOLECYSTECTOMY 2002 EYE SURGERY 01/21/2023 retinal repair [facility] HEMANGIOMA EXCISION 1946 from upper back HYSTERECTOMY 1984 KNEE SURGERY Bilateral arthroscopic knee surgery x3 (Rx2, Lx1) ([id number]) LAPAROTOMY OOPHERECTOMY 1985 LUMBAR DISCECTOMY 1989 partial LUMBAR DISCECTOMY 01/14/2017 Microdiscetomy L5-S1 LUMBAR DISCECTOMY 07/03/2021 L1-2 partial discectomy, L1-2, L2-3 cleaning out of stenosis in the spinal canal [facility] LUMBAR EPIDURAL INJECTION 12/20/2020 Dr Clifton [...] Brother Jesús Baer Cancer Mother's Sister Jannette Pily Cancer Mother's Sister Nisa Dunham Cancer Mother's [...] Depression - At risk (07/13/2024) Received from [facility] PHQ-2 Total Score: 3 REVIEW OF SYMPTOMS: [...] single episode, in full remission (CMS/[facility]) Relevant Medications mirtazapine (Remeron) 15 [...] Medication change (Remeron) documented in this encounter [facility] 12-25-2024 Telephone encounter Note Sorry I forgot to add I scheduled her an appt. [facility] 12-25-2024 Miscellaneous Notes Sorry I forgot to add I scheduled her an appt. Please call to check on her This is Angela Ruth. My phone number is [phone] for I am calling to let Dr Sutherland know that I fell on Wednesday night and was seen in, ER. Thank you very much, maría. documented in this encounter [facility] 12-25-2024 Telephone encounter Note Please call to check on her [facility] 12-25-2024 Telephone encounter Note This is Angela Ruth. My phone number is [phone] for I am calling to let Dr Sutherland know that I fell on Wednesday night and was seen in, ER. Thank you very much, maría. [facility] 12-19-2024 History of Present illness Narrative Images from the original note were not included. [address] [place] [address] [facility] [id number] Patient: Angela Ruth Date of : 1945 [...] creatinine: Lab Results Component Value Date BUN 02/11/2024 Lab Results Component Value Date CREATININE [...] (benign paroxysmal positional vertigo) Brain tumor (benign) (CMS-HCC) Breast disorder 4 biopsies Bronchitis 01/01/2017 Cancer [...] Performed by Alexander Leach MD at [facility] ENDOSCOPY COSMETIC SURGERY 1984 DISCECTOMY 1989 Partial L4-5 EGD 2001 EYE SURGERY 2014 FOOT SURGERY 2009 Reattachment of tendon left foot with bone graft HIP SURGERY 2003 Excision of bursa left hip HYSTERECTOMY 1983 INJECTION BLOCK EPIDURAL STEROID LUMBAR/SACRAL Left L 5,1 NR Left 12/20/2020 Performed by Shubham Clifton MD at [facility] INJECTION BLOCK NERVE MEDIAL BRANCH right C 4/5,5/6 Right 05/22/2022 Performed by Shubham Clifton MD at [facility] INJECTION BLOCK NERVE MEDIAL BRANCH right C 4/5,5/6 Right 04/17/2022 Performed by Shubham Clifton MD at [facility] INJECTION CAUDAL EPIDURAL WITH CATHETER, STEROID N/A 03/07/2018 Performed by Shubham Clifton MD at [facility] INJECTION LARGE JOINT BURSA: bilat hip Bilateral 12/10/2017 Performed by Shubham Clifton MD at [facility] INJECTION MEDIAL BRANCH NERVE BLOCK Bilateral L 4/5, 5/1 Bilateral 06/28/2017 Performed by Shubham Clifton MD at [facility] IN[facility]CTION MEDIAL BRANCH NERVE BLOCK Right L 2/3, 3/4 Right 12/08/2019 Performed by Shubham Clifton MD at [facility] INJECTION MEDIAL BRANCH NERVE BLOCK RIGHT L23 34 Right 01/19/2020 Performed by Shubham Clifton MD at [facility] INJE[facility] SI JOINT Bilateral 04/09/2017 Performed by Shubham Clifton MD at [facility] INJECTION SI JOINT Bilateral SI Joint Bilateral 05/31/2020 Performed by Shubham Clifton MD at [facility] INJECTION SI JOINT Left SI JOint Left 01/06/2019 Performed by Shubham Clifton MD at [facility] INJECTION SI JOINT Right SI Joint Right 06/09/2019 Performed by Shubham Clifton MD at [facility] SPINE TRANSFORAMINAL Left L 4, 5 NR Left 09/24/2017 Performed by Shubham Clifton MD at [facility] INJECTION SPINE TRANSFORAMINAL Left L 5,1 Nroot Left 01/08/2023 Performed by Shubham Clifton MD at [facility] SPINE TRANSFORAMINAL Right L 5,1 Nroot Right 11/27/2022 Performed by Shubham Clifton MD at [facility] STEROID EPI 1 WITH SEDATION Left 5,1 NR Left 05/08/2019 Performed by Shubham Clifton MD at [facility] KNEE ARTHROSCOPY 2010, 2013 KNEE SURGERY 2010 2013 Arthroscopy bilateral/repair meniscus right X2, left X1 LAMINECTOMY LUMBAR FORAMENOTOMY MULTI LEVEL L1-2 RIGHT/L2-3 BILATERAL/LUMBAR DRAIN INSERTION N/A 07/03/2021 Performed by Ileana Cortes MD at [facility] LAPAROTOMY OOPHERECTOMY Bilateral 1984 LUMBAR DISCECTOMY LUMBAR FUSION 2009 L3-5 LUMBAR LAMINECTOMY MICRO LUMBAR DISCECTOMY L5-S1/ FORAMINOTOMY L5-S1 Left 01/14/2017 Performed by Ileana Cortes MD at [facility] OOPHORECTOMY 1982 OTHER SURGICAL HISTORY Knee Arthroscopy With Medial Meniscus Repair OTHER SURGICAL HISTORY Spinal Diskectomy RADIO FREQUENCY ABLATION Left L 4/5, 5/1 Left 12/02/2018 Performed by Shubham Clifton MD at [facility] RADIO FREQUENCY ABLATION Left L 4/5, 5/1 Left 07/30/2017 Performed by Shubham Clifton MD at [facility] RADIO FREQUENCY ABLATION Left SI joint Left 03/31/2019 Performed by Shubham Clifton MD at [facility] RADIO FREQUENCY ABLATION Right L2/3, 3/4 Right 03/29/2020 Performed by Shubham Clifton MD at [facility] RADIOFREQUENCY ABLATION SPINAL Left Si joint Left 05/07/2017 Performed by Shubham Clifton MD at [facility] RADIOFREQUENCY ABLATION SPINAL Right C 4/5,5/6 Right 06/26/2022 Performed by Shubham Clifton MD at [facility] RADIOFREQUENCY ABLATION SPINAL RIGHT SI JOINT Right 05/21/2017 Performed by Shubham Clifton MD at [facility] RELEASE CARPAL TUNNEL Left 11/04/2021 Performed by Ileana Cortes MD at [facility] SHOULDER SURGERY 2012 Right rotator cuff [...] mg total) by mouth in the morning. erxkmju-hyyanculgjspq-qaptgurq (EXCEDRIN MIGRAINE) 250-250-65 mg per tablet Take [...] caffeine as well as addressing constipation with ocga-yqw-plgxcof agents. If no improvement can add beta [...] for your understanding. documented in this encounter [facility] 12-12-2024 Telephone encounter Note Approvals with refills [facility] 12-12-2024 Miscellaneous Notes Approvals with refills documented in this encounter [facility] 12-08-2024 History of Present illness Narrative Images [...] List Items Addressed This Visit Essential hypertension (CMS/HCC) Overview Managed by dr cifuentes Age-related osteoporosis without current pathological fracture ([facility]) Other Visit Diagnoses Urinary frequency [...] skin lesions today. documented in this encounter [facility] 12-06-2024 History of Present illness Narrative Reason [...] (benign paroxysmal positional vertigo) Brain tumor (benign) ([facility]-HCC) Breast disorder 4 biopsies Bronchitis 01/01/2017 Cancer ([facility]-HCC) Basal cell Carpal tunnel syndrome Cataract [...] Performed by Alexander Leach MD at [facility] ENDOSCOPY COSMETIC SURGERY 1985 DISCECTOMY 1990 Partial L4-5 EGD 2001 EYE SURGERY 2015 FOOT SURGERY 2009 Reattachment of tendon left foot with bone graft HIP SURGERY 2003 Excision of bursa left hip HYSTERECTOMY 1984 INJECTION BLOCK EPIDURAL STEROID LUMBAR/SACRAL Left L 5,1 NR Left 12/20/2020 Performed by Shubham Clifton MD at [facility] INJECTION BLOCK NERVE MEDIAL BRANCH right C 4/5,5/6 Right 05/22/2022 Performed by Shubham Clifton MD at [facility] INJECTION BLOCK NERVE MEDIAL BRANCH right C 4/5,5/6 Right 04/17/2022 Performed by Shubham Clifton MD at [facility] INJECTION CAUDAL EPIDURAL WITH CATHETER, STEROID N/A 03/07/2018 Performed by Shubham Clifton MD at [facility] INJECTION LARGE JOINT BURSA: bilat hip Bilateral 12/10/2017 Performed by Shubham Clifton MD at [facility] INJECTION MEDIAL BRANCH NERVE BLOCK Bilateral L 4/5, 5/1 Bilateral 06/28/2017 Performed by Shubham Clifton MD at [facility] MEDIAL BRANCH NERVE BLOCK Right L 2/3, 3/4 Right 12/08/2019 Performed by Shubham Clifton MD at [facility] MEDIAL BRANCH NERVE BLOCK RIGHT L23 34 Right 01/19/2020 Performed by Shubham Clifton MD at [facility] INJECTION SI JOINT Bilateral 04/09/2017 Performed by Shubham Clifton MD at [facility] INJECTION SI JOINT Bilateral SI Joint Bilateral 05/31/2020 Performed by Shubham Clifton MD at [facility] INJECTION SI JOINT Left SI JOint Left 01/06/2019 Performed by Shubham Clifton MD at [facility] INJECTION SI JOINT Right SI Joint Right 06/09/2019 Performed by Shubham Clifton MD at [facility] SPINE TRANSFORAMINAL Left L 4, 5 NR Left 09/24/2017 Performed by Shubham Clifton MD at [facility] SPINE TRANSFORAMINAL Left L 5,1 Nroot Left 01/08/2023 Performed by Shubham Clifton MD at [facility] SPINE TRANSFORAMINAL Right L 5,1 Nroot Right 11/27/2022 Performed by Shubham Clifton MD at [facility] STEROID EPI 1 WITH SEDATION Left 5,1 NR Left 05/08/2019 Performed by Shubham Clifton MD at [facility] KNEE ARTHROSCOPY 2013 KNEE SURGERY 2010 2013 Arthroscopy bilateral/repair meniscus right X2, left X1 LAMINECTOMY LUMBAR FORAMENOTOMY MULTI LEVEL L1-2 RIGHT/L2-3 BILATERAL/LUMBAR DRAIN INSERTION N/A 07/03/2021 Performed by Ileana Cortes MD at [facility] LAPAROTOMY OOPHERECTOMY Bilateral 1984 LUMBAR DISCECTOMY LUMBAR FUSION 2010 L3-5 LUMBAR LAMINECTOMY MICRO LUMBAR DISCECTOMY L5-S1/ FORAMINOTOMY L5-S1 Left 01/14/2017 Performed by Ileana Cortes MD at [facility] OOPHORECTOMY 1982 OTHER SURGICAL HISTORY Knee Arthroscopy With Medial Meniscus Repair OTHER SURGICAL HISTORY Spinal Diskectomy RADIO FREQUENCY ABLATION Left L 4/5, 5/1 Left 12/02/2018 Performed by Shubham Clifton MD at [facility] RADIO FREQUENCY ABLATION Left L 4/5, 5/1 Left 07/30/2017 Performed by Shubham Clifton MD at [facility] RADIO FREQUENCY ABLATION Left SI joint Left 03/31/2019 Performed by Shubham Clifton MD at [facility] RADIO FREQUENCY ABLATION Right L2/3, 3/4 Right 03/29/2020 Performed by Shubham Clifton MD at [facility] RADIOFREQUENCY ABLATION SPINAL Left Si joint Left 05/07/2017 Performed by Shubham Clifton MD at [facility] RADIOFREQUENCY ABLATION SPINAL Right C 4/5,5/6 Right 06/26/2022 Performed by Shubham Clifton MD at [facility] RADIOFREQUENCY ABLATION SPINAL RIGHT SI JOINT Right 05/21/2017 Performed by Shubham Clifton MD at [facility] RELEASE CARPAL TUNNEL Left 11/04/2021 Performed by Ileana Cortes MD at [facility] SHOULDER SURGERY 2011 Right rotator [...] mouth in the morning., Disp: , Rfl: zbnyovb-arawzgryqezqm-xgqobiyb (EXCEDRIN MIGRAINE) 250-250-65 mg per tablet, Take [...] with doctor John Johnson MD, MPH, [facility] [address] [address] Dept: [phone] FAX: [phone] documented in this encounter [facility] 11-29-2024 Telephone encounter Note Approvals with refills [facility] 11-29-2024 Miscellaneous Notes Approvals with refills documented in this encounter [facility] 11-06-2024 Telephone encounter Note Approvals with refills [facility] 11-06-2024 Miscellaneous Notes Approvals with refills documented in this encounter [facility] 10-30-2024 History of Present illness Narrative Images [...] on an empty stomach Orally Wed, skip Wednesday, Disp: , Rfl: lisinopril-hydroCHLOROthiazide [...] (four) hours., Disp: 18 g, Rfl: 11 fxzrkgfuhl-alqfawfmzlsvi-eaiecye e 50-325-40 MG tablet, Take 1 tablet [...] 3 APPENDECTOMY 1965 BREAST BIOPSY x4 - [id number] CHOLECYSTECTOMY 2002 EYE SURGERY 01/21/2023 retinal repair [facility] HEMANGIOMA EXCISION 1946 from upper back HYSTERECTOMY 1984 KNEE SURGERY Bilateral arthroscopic knee surgery x3 (Rx2, Lx1) ([id number]) LAPAROTOMY OOPHERECTOMY 1985 LUMBAR DISCECTOMY 1989 partial LUMBAR DISCECTOMY 01/14/2017 Microdiscetomy L5-S1 LUMBAR DISCECTOMY 07/03/2021 L1-2 partial discectomy, L1-2, L2-3 cleaning out of stenosis in the spinal canal [facility] LUMBAR EPIDURAL INJECTION 12/20/2020 Dr Clifton [...] Grandmother Sandra Keyur Stroke Paternal Grandmother Sandra Baer Alcohol abuse [...] Santo Christianson DPM documented in this encounter [facility] 10-30-2024 Instructions Santo Christianson DPM - 10/30/2024 1:45 PM EST As noted documented in this encounter [facility] 10-06-2024 Telephone encounter Note Voicemail left for Angela at [phone]. Call back number given. 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 My note was forward to Dr. Hoover for review. At this time we recommend follow up and new imaging in 1 year. Rose Velasquez, MSN, BOX SEALING MACHINE CATCHER, INVESTMENT COUNSELOR Certified Nurse Practitioner [facility] Work Phone: 10-06-2024 Miscellaneous Notes Voicemail left for Angela at [phone]. Call back number given. 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 My note was forward to Dr. Hoover for review. At this time we recommend follow up and new imaging in 1 year. Rose Velasuqez, MSN, BOX SEALING MACHINE CATCHER, INVESTMENT COUNSELOR Certified Nurse Practitioner General Call Caller : Angela Contact Reason for Call : Did you speak with Dr. Hoover regarding her most recent appt? Patient requesting return call ? Yes documented in this encounter [facility] 10-04-2024 Telephone encounter Note General Call Caller : Angela Contact Reason for Call : Did you speak with Dr. Hoover regarding her most recent appt? Patient requesting return call ? Yes [facility] 09-26-2024 Note HNO ID: [id number] Author: ROSE VELASQUEZ APRN.MAHENDRA Service: ? Author Type: Nurse Practitioner Type: Progress Notes Filed: 09/26/2024 15:27 Note Text: [facility] [place] [facility] NEURO-ONCOLOGY OUTPATIENT CLINIC NOTE [...] side to side (more content not included)... [facility] 09-26-2024 History of Present illness Narrative Images from the original note were not included. [facility] [place] [facility] NEURO-ONCOLOGY OUTPATIENT CLINIC NOTE [...] CN: Spontaneous palate movement, full and symmetric. 11 CN: Full strength in shoulder shrug. CN: Tongue protrusion full and midline. Sensation: [...] DATE OF EXAM: Sep 26 2024 12:29PM [facility] 0295 - MRI BRAIN WO/W IVCON [...] petrous ridge presumed meningioma compared to 03/02/2024. Configuration Management Architect: ALLYSSA Transcribe Date/Time: Sep 26 2024 2:10P [...] - All questions were answered. Rose Velasquez APRN.INVESTMENT COUNSELOR Certified Nurse Practitioner cc: Mandi Hoover MD - Epic documented in this encounter [facility] 09-26-2024 History of Present illness [...] TIME: 11:27 AM documented in this encounter [facility] 09-26-2024 Note HNO ID: [id number] Author: JESSICA HOWELL RN Service: Nursing Author [...] DATE: September 26, 2024 TIME: 11:27 AM [facility] 08-14-2024 History of Present illness Narrative Images [...] past. She does not currently have an patient care representative. SUBJECTIVE: MEDICATIONS: Current Outpatient Medications Medication Instructions albuterol HFA 90 mcg/act inhaler 2 puffs, Inhalation, Every 4 hours alendronate (FOSAMAX) 70 mg, Oral, Every 7 days amitriptyline (ELAVIL) 50 mg, Oral, Nightly Ascorbic Acid (vitamin C) 1000 MG tablet Every 24 hours aspirin 81 mg, Oral, Daily RT atorvastatin (LIPITOR) 40 mg, Oral, Daily buprenorphine (Butrans) 7.5 MCG/HR 1 patch, Transdermal, Weekly sprfckxxsn-yyirhzezzilbk-taretmh e 50-325-40 MG tablet 1 tablet, Oral, [...] provided. She does not currently have an patient care representative but is open to seeing one. A COVID-19 test was conducted today, which returned negative. She is advised to stay hydrated. If her condition deteriorates, a repeat COVID-19 test will be necessary. documented in this encounter [facility] 08-08-2024 History of Present illness Narrative Angela [...] (Butrans) 7.5 MCG/HR 1 patch, Transdermal, Weekly synpdkbumm-berpkmznyadrz-bnedxcq e 50-325-40 MG tablet 1 tablet, Oral, [...] 1953 APPENDECTOMY 1965 BREAST BIOPSY x4 - [id number] CHOLECYSTECTOMY 2002 EYE SURGERY 01/21/2023 retinal repair [facility] HEMANGIOMA EXCISION 1946 from upper back HYSTERECTOMY 1984 KNEE SURGERY Bilateral arthroscopic knee surgery x3 (Rx2, Lx1) ([id number]) LAPAROTOMY OOPHERECTOMY 1985 LUMBAR DISCECTOMY 1989 partial LUMBAR DISCECTOMY 01/14/2017 Microdiscetomy L5-S1 LUMBAR DISCECTOMY 07/03/2021 L1-2 partial discectomy, L1-2, L2-3 cleaning out of stenosis in the spinal [facility] LUM[facility] EPIDURAL INJECTION 12/20/2020 Dr Clifton RADIOFREQUENCY [...] Never Depression: At risk (07/13/2024) Received from [facility] PHQ-2 Total Score: 3 REVIEW OF SYMPTOMS: [...] 25 mg were renewed and sent to [facility] pharmacy. Follow-up The patient will follow up in 4 months. documented in this encounter [facility] 07-10-2024 History of Present illness Narrative Angela [...] consulted with Dr. Romano, a urologist in [place], some time ago but has not sought [...] (Butrans) 7.5 MCG/HR 1 patch, Transdermal, Weekly qwqyzcwesi-pnlkkkgfkzxzi-nhvnlja e 50-325-40 MG tablet 1 tablet, Oral, [...] 3 APPENDECTOMY 1965 BREAST BIOPSY x4 - [id number] CHOLECYSTECTOMY 2002 EYE SURGERY 01/21/2023 retinal repair [facility] HEMANGIOMA EXCISION 1946 from upper back HYSTERECTOMY 1984 KNEE SURGERY Bilateral arthroscopic knee surgery x3 (Rx2, Lx1) ([id number]) LAPAROTOMY OOPHERECTOMY 1985 LUMBAR DISCECTOMY 1989 partial LUMBAR DISCECTOMY 01/14/2017 Microdiscetomy L5-S1 LUMBAR DISCECTOMY 07/03/2021 L1-2 partial discectomy, L1-2, L2-3 cleaning out of stenosis in the spinal canal [facility] LUMBAR EPIDURAL INJECTION 12/20/2020 Dr Clifton [...] Depression: Not at risk (03/10/2024) Received from [facility], [facility] PHQ-2 Total Score: 0 REVIEW OF SYMPTOMS: [...] by Dr. Márquez documented in this encounter [facility] 04-04-2024 Instructions Anson Ennis MD - 04/04/2024 12:35 PM EDT - obtain follow up MRI brain wwo in 6 months - please follow up with your electric vehicle electrician (we do not think the etiology of your hearing loss is due to your meningioma) - our team will notify Dr. Bia Cao regarding these findings; we recommend investigating other etiologies of imbalance in Mrs. Ruth documented in this encounter [facility] 04-04-2024 Nurse Note Additional intake questions: Has the patient had fever, nausea, vomiting, diarrhea, constipation, fatigue for > 1 week? No Does the patient have a decreased appetite? No Does patient want to see a Resource Agent? No (yes to any of above refer patient to schedulers for dietitian appointment) ) Does patient have any new or increased numbness or tingling of extremities? No Is patient interested in fertility information? No Does patient need any prescription refills? No Does patient have an advanced directive in place? Yes, no copy found in [facility] Patient referred to [facility] Electronically Signed By: Josette Sheppard MA [facility] 04-04-2024 Nurse Note Additional intake questions: Has the patient had fever, nausea, vomiting, diarrhea, constipation, fatigue for > 1 week? No Does the patient have a decreased appetite? No Does patient want to see a Resource Agent? No (yes to any of above refer patient to schedulers for dietitian appointment) ) Does patient have any new or increased numbness or tingling of extremities? No Is patient interested in fertility information? No Does patient need any prescription refills? No Does patient have an advanced directive in place? Yes, no copy found in [facility] Patient referred to [facility] Electronically Signed By: Josette Sheppard MA documented in this encounter [facility] 04-04-2024 History of Present illness Narrative Images from the original note were not included. SECTION OF SKULL BASE SURGERY MINIMALLY INVASIVE CRANIAL BASE & PITUITARY SURGERY PROGRAM Jessica Car[facility] [place], [facility] CC: Patient Care Team: Bia Cao as PCP ([facility]) Ileana Cortes MD as NI Referring [...] ([place]/West side preference). - follow up with electric vehicle electrician for hearing loss which is unrelated to [...] Patient is accompanied by her granddaughter (her bus van driver) and great grand daughter). The patient [...] contrast and shows a 1.2 cm R ENROLLMENT MANAGEMENT DIRECTOR contrast-enhancing lesion concerning for either schwannoma or meningioma- no associated mass effect or edema. The patient takes ASA 81 mg daily for cardioprotection per her PCP. The patient has been using a cane for the last 5-6 years. The patient reports that ~6 weeks ago, she walked into her garage door and fell. The patient has not seen an electric vehicle electrician or a vestibular therapist. Past Medical History: [...] contrast and shows a 1.2 cm R ENROLLMENT MANAGEMENT DIRECTOR contrast-enhancing lesion extra-axial mass arising from the right posterior petrous ridge with no significant mass effect and not abutting the right vestibular cochlear complex. documented in this encounter [facility] 04-04-2024 Note HNO ID: [id number] Author: MANDI HOOVER MD Service: ? Author Type: Physician Type: Progress Notes Filed: 04/05/2024 17:50 Note Text: SECTION OF SKULL BASE SURGERY MINIMALLY INVASIVE CRANIAL BASE AND PITUITARY SURGERY PROGRAM Jessica Caro [facility] [place], [facility] CC: Patient Care Team: Bia Cao as PCP ([facility]) Ileana Cortes MD as NI Referring [...] our skull base team advance practice providers ([place] side preference). - follow up with electric vehicle electrician for hearing loss which is unrelated to [...] Patient is accompanied by her granddaughter (her bus van driver) and great grand daughter). The patient [...] contrast and shows a 1.2 cm R ENROLLMENT MANAGEMENT DIRECTOR contrast-enhancing lesion concerning for either schwannoma or meningioma- no associated mass effect or edema. The patient takes ASA 81 mg daily for cardioprotection per her PCP. The patient has been using a cane for the last 5-6 years. The patient reports that ~6 weeks ago, she walked into her garage door and fell. The patient has not seen an electric vehicle electrician or a vestibular therapist. Past Medical History: [...] mg (VYTORIN) 10-40 (more content not included)... [facility] 03-28-2024 Telephone encounter Note Called patient to schedule an appointment. No ans/left message to call the office back. Appointment scheduled: 04/04/2024 10:30 AM (Arrive by 10:15 AM) Mandi Hoover MD [facility] [place] Etelvina Trujillo, PAC [facility] 03-28-2024 Miscellaneous Notes Called patient to schedule an appointment. No ans/left message to call the office back. Appointment scheduled: 04/04/2024 10:30 AM (Arrive by 10:15 AM) Mand[facility] [place] Etelvina Ronnie, PAC Time Frame: First available Provider: Kiko Landrum Soni Referring: Ileana Cortes MD [facility] Dx: Right CPA mass Patient: Angela Ruth Address: Angela Ruth [id number] [place] [address] Per Triage: HISTORY OF PRESENT ILLNESS Angela [...] 28, 2024 Referral source: Ileana Cortes MD ([facility]) Reason for visit: consideration of gamma knife for 1.2 cm enhancing lesion at right cerebelloponitine angle with leading differential including vestibular schwannoma and meningioma External records: Sent with referral and pulled from [facility] Triage: Required, forwarded to [facility] by telephone encounter sent to [facility] Scheduling Triage. Financial clearance: Not required to schedule documented in this encounter [facility] 03-28-2024 Telephone encounter Note Time Frame: First available Provider: Kiko Landrum Soni Referring: Ileana Cortes MD Images to be requested from [facility] Dx: Right CPA mass Patient: Angela Ruth Address: Angela Ruth [phone] [place] [address] [place] [address] Per Triage: HISTORY OF PRESENT ILLNESS Angela [...] extracranial soft tissues are unremarkable. Rose Velasquez APRN.INVESTMENT COUNSELOR March 28, 2024 [facility] 03-24-2024 Telephone encounter Note Referral source: Ileana Cortes MD ([facility]) Reason for visit: consideration of gamma knife for 1.2 cm enhancing lesion at right cerebelloponitine angle with leading differential including vestibular schwannoma and meningioma External records: Sent with referral and pulled from [facility] Triage: Required, forwarded to [facility] by telephone encounter sent to [facility] Scheduling Triage. Financial clearance: Not required to schedule [facility] Evaluation note Diagnosis General weakness- Primary Other malaise and fatigue History of falling [facility] Diagnosis Mixed hyperlipidemia (CMS/HCC)- Primary Mixed hyperlipidemia Stress incontinence of urine [facility]* Diagnosis General weakness- Primary Other malaise and fatigue History of falling [facility] Diagnosis General weakness- Primary Other malaise and fatigue History of falling documented in this encounter [facility]* Diagnosis Brain mass [G93.89]- Primary Unspecified condition of brain [facility] Diagnosis Intracranial meningioma (HCC)- Primary Benign neoplasm of cerebral meninges Sensorineural hearing loss (SNHL) of right ear, unspecified hearing status on contralateral side Dizziness Dizziness and giddiness [facility] Diagnosis Intracranial meningioma (HCC)- Primary Benign neoplasm of cerebral meninges Benign neoplasm of meninges (HCC) Benign neoplasm of cerebral meninges [facility] Diagnosis Benign neoplasm of meninges (HCC)- Primary Benign neoplasm of cerebral meninges Dizziness Dizziness and giddiness [facility] Diagnosis Benign neoplasm of meninges (HCC) Benign neoplasm of cerebral meninges [facility] Diagnosis Dermatophytosis of nail- Primary Dystrophic [...] Vitamin D deficiency [facility] Diagnosis Osteoporosis, unspecified osteoporosis type, unspecified pathological fracture presence- Primary documented in this encounter [facility]* Diagnosis Urinary frequency- Primary Essential hypertension (CMS/HCC) Unspecified essential hypertension Age-related osteoporosis without current pathological fracture (CMS/HCC) [facility] Diagnosis Acute cystitis without hematuria- Primary [facility]* Diagnosis Gastroesophageal reflux disease without esophagitis Esophageal reflux [facility]* Diagnosis Urge incontinence- Primary [facility] Diagnosis Osteoporosis, unspecified osteoporosis type, unspecified pathological fracture presence- Primary [facility] Diagnosis Hoarse- Primary Dysphonia Primary insomnia Persistent disorder of initiating or maintaining sleep Major depressive disorder, single episode, in full remission ([facility] Major depressive disorder, 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 Fall, subsequent encounter Gastroesophageal reflux disease without esophagitis Esophageal reflux [facility] Diagnosis Hematuria, unspecified type [facility]* Diagnosis Acute cystitis with hematuria- Primary [facility]* Diagnosis Mixed hyperlipidemia ([facility]) Mixed hyperlipidemia Anxiety Anxiety state, unspecified [facility]* Diagnosis Presbylarynges- Primary Hoarse Dysphonia [facility]* Diagnosis Osteoporosis, unspecified osteoporosis type, unspecified pathological fracture presence- Primary [facility] Diagnosis Influenza A- Primary Influenza with other respiratory manifestations Sore throat Acute pharyngitis Acute cough [facility]* Diagnosis Acute bronchitis, unspecified organism- Primary Flank pain Abdominal pain, unspecified site [facility]* Diagnosis Stress incontinence of urine [facility]* Diagnosis Osteoporosis, unspecified osteoporosis type, unspecified pathological fracture presence- Primary [facility] Diagnosis Migraine without aura and without status migrainosus, not intractable- Primary Essential tremor Psychophysiological insomnia Persistent disorder of initiating or maintaining sleep documented [facility] Diagnosis Osteoporosis, unspecified osteoporosis type, unspecified pathological fracture presence- Primary [facility]* Diagnosis Migraine without aura and without status migrainosus, not intractable- Primary Essential tremor Cervical radiculopathy Brachial neuritis or radiculitis nos Bilateral occipital neuralgia [facility]* Diagnosis Essential hypertension (CMS/HCC)- Primary Unspecified essential hypertension [facility]* Diagnosis Urge incontinence- Primary Frequent UTI Urinary tract infection, site not specified [facility] Diagnosis Urge incontinence- Primary Frequent UTI Urinary tract infection, site not specified Osteoporosis, unspecified osteoporosis type, unspecified pathological fracture presence- Primary [facility] Diagnosis Moderate persistent asthma, unspecified whether complicated (CMS/HCC) [facility]* Abran Maldonado RN - 01/12/2025 2:20 PM EST Pt here for evenity as scheduled. Calcium level 9.8. This is patients first evenity injection. Instructed on purpose/potential side effects of injection. Printed education given to patient. Injectiongiven SQ to two diff injection sites. Pt tolerated well. Dc'd in stable condition with family. Treatment calendar given. [facility]ructionsNot on file documented in this [facility] SystemInstructionsNot on file documented in this [facility] System[facility]ructionsNot on file documented in this [facility] SystemInstructionsNot on file documented in this encounterPro[facility] SystemInstructionsNot on file documented in this encounterPro[facility] SystemInstructionsNot on file documented in this [facility]Pro[facility] SystemReason for referral (narrative)* Consultation (Routine) - Authorized Specialty Diagnoses / Procedures Referred By Violette staley Referred To Contact Urology Diagnoses Urinary frequency Procedures [place] OFFICE/OUTPATIENT NEW HIGH [facility] 60 MINUTES Bia Cao MD [address] [place] [address] Maria C Kramer MD [address] [place] [address] Referral ID Status Reason Start Date Expiration Date Visits Requested Visits Authorized [id number] Authorized Specialty Services Required 07/10/2024 01/06/2025 1 [...] FoundDocuments on File Type Date Recorded 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 Durable Power of Bacteriologist Industrial 07/16/2021 3:45 PM Living Will 07/16/2021 3:40 PM Date Activated Date Inactivated Comments 03/02/2023 4:15 AM 03/03/2023 3:57 PM Date Activated Date Inactivated Comments 07/03/2021 9:57 AM 07/10/2021 6:07 PM Date Activated Date Inactivated Comments 01/04/2018 4:32 PM 01/06/2018 6:44 PM Date Activated Date Inactivated Comments 01/14/2017 8:37 AM 01/15/2017 5:28 PM Documents on File Type Date Recorded 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 Durable Power of Bacteriologist Industrial 07/16/2021 3:45 PM Living Will 07/16/2021 3:40 PM Date Activated Date Inactivated Comments 03/02/2023 [...] STEM W/O W/CONTRAST MATERIAL Mandi Hoover MD [address] [place] [address] [place] [address] Referral ID Status Reason Start Date Expiration Date Visits Requested Visits Authorized [id number] Pending Review Auto-Generat ed Referral 08/28/2024 06/08/2025 1 1 Specialty Diagnoses / Procedures Referred By Contac t Referred To Contact MR IMAGING Diagnoses Benign neoplasm of meninges (HCC) Procedures MRI BRAIN WO/W IVCON MRI BRAIN BRAIN STEM W/O W/CONTRAST MATERIAL Rose Velasquez APRN.INVESTMENT COUNSELOR [address] [place] [address] Mr Imaging [place] [address] Referral ID Status Reason Start Date Expiration Date Visits Requested Visits Authorized [id number] New Request Auto-Generat ed Referral 09/26/2024 10/26/2025 1 1 Referral ID Status Reason Start Date Expiration Date V isits Requested Visits Authorized [id number] Closed Auto-Generate d Referral 08/28/2024 06/08/2025 1 1 Additional Source Comments INFORMATION SOURCE (unrecogn ized section and content) DATE CREATED AUTHOR 05/16/2018 [facility] DATE CREATED AUTHOR AUTHOR'S ORGANIZ ATION 06/21/2019 [facility] DATE CREATED AUTHOR AUTHOR'S ORGANIZ ATION 11/13/2022 [facility] DATE CREATED AUTHOR AUTHOR'S ORGANIZ ATION 12/07/2022 [facility] DATE CREATED AUTHOR AUTHOR'S ORGANIZ ATION 10/08/2024 [facility] DATE CREATED AUTHOR AUTHOR'S ORGANIZ ATION 12/21/2024 [facility] DATE CREATED AUTHOR AUTHOR'S ORGANIZ ATION 12/24/2024 [facility] DATE CREATED AUTHOR AUTHOR'S ORGANIZ ATION 02/18/2025 [facility] DATE CREATED AUTHOR AUTHOR'S ORGANIZ ATION 03/01/2025 [facility] DATE CREATED AUTHOR AUTHOR'S ORGANIZ ATION 03/23/2025 [facility] Reason for Visit (unrecogniz ed section and content) Reason Comments Injection evenity Specialty Diagnoses / Procedures Referred By Contac t Referred To Contact Diagnoses Osteoporosis, unspecified osteoporosis type, unspecified pathological fracture presence Procedures VT ROMOSOZUMAB INJECTION John Johnson MD [address] [facility] [place] [address] Phone: tel: fax: [facility] [address] [place] [address] Phone: tel: fax: Referral ID Status Reason Start Date Expiration Date V isits Requested Visits Authorized [id number] Authorized 12/06/2024 12/06/2025 12 12 Reason Comments Outpatient Infusion Evenity Specialty Diagnoses / Procedures Referred By Contac t Referred To Contact Physical Therapy Diagnoses Muscle weakness (generalized) Procedures TREATMENT Bia Coa MD [address] [place] [address] Jonny Saalzar, PT [address] [place] [address] Referral ID Status Reason Start Date Expiration Date V isits Requested Visits Authorized [id number] Authorized 12/08/2023 06/05/2024 99 99 Reason Comments Med Refill Reason Comments Received Outside Medical Records Externa l referral to Neurological [place] triage Nurse Triage Call Appointment Reason Comments Consult Reason Comments New Patient Intracranial Meningi brandon Reason Comments Radiology MRI Specialty Diagnoses / Procedures Referred By Contac t Referred To Contact MR IMAGING Diagnoses Benign neoplasm of meninges (HCC) Procedures MRI BRAIN WO/W IVCON MRI BRAIN BRAIN STEM W/O W/CONTRAST MATERIAL Mandi Hoover MD [address] [place] [address] [place] [address] Referral ID Status Reason Start Date Expiration Date V isits Requested Visits Authorized [id number] Closed Auto-Generate d Referral 08/28/2024 06/08/2025 1 [...] Comments Follow-up Reason Comments Fall ER Follow-up Reason Comments Hoarseness Specialty Diagnoses / Procedures Referred By Violette t Referred To Contact Otolaryngology Diagnoses Hoarse Procedures [place] OFFICE/OUTPATIENT NEW HIGH [facility] 60 MINUTES Tae Hardy NP [address] [place] [address] Phone: tel: fax: Katerin Alvarado MD [address] [facility] [address] [place] [address] Phone: tel: fax: Referral ID Status Reason Start Date Expiration Date V isits Requested Visits Authorized [id number] Closed Specialty Services Required 12/26/2024 06/24/2025 1 1 Reason Comments Sore Throat Cough Reason Comments Follow-up 1 month follow up Care Teams (unrecognized sec tion and content) Business Information Manager Relationship Specialty Start Date End Date Jacob Viveros PCP - [employer] 11/22/22 Bia Cao MD [address] [place] [address] PCP - General Family Medicine 04/29/23 Business Information Manager Relationship Specialty Start Date End Date Jacob Viveros PCP - [employer] 11/22/22 Bia Cao MD [address] [place] [address] PCP - General Family Medicine 04/29/23 Business Information Manager Relationship Specialty Start Date End Date Jacob Viveros PCP - [employer] 11/22/22 Bia Cao MD [address] [place] [address] PCP - General Family Medicine 04/29/23 Business Information Manager Relationship Specialty Start Date End Date Jacob Viveros PCP - [employer] 11/22/22 Bia Cao MD [address] [facility] [place] [address] PCP - General Family Medicine 04/29/23 Business Information Manager Relationship Specialty Start Date End Date Jacob Viveros PCP - [employer] 11/22/22 Bia Cao MD [address] [facility] [place] [address] PCP - General Family Medicine 04/29/23 Business Information Manager Relationship Specialty Start Date End Date Jacob Viveros PCP - [employer] 11/22/22 Bia Cao MD [address] [facility] [place] [address] PCP - General Family Medicine 04/29/23 Business Information Manager Relationship Specialty Start Date End Date (Hist), No Pcp PCP - General 11/04/17 Ileana Cortes MD [address] [place] [address] NI Referring Team Neurosurgery 03/24/24 Business Information Manager Relationship Specialty Start Date End Date (Hist), No Pcp PCP - General 11/04/17 Ileana Cortes MD [address] [place] [address] NI Referring Team Neurosurgery 03/24/24 Business Information Manager Relationship Specialty Start Date End Date (Hist), No Pcp PCP - General 11/04/17 Ileana Cortes MD [address] [place] [address] NI Referring Team Neurosurgery 03/24/24 Business Information Manager Relationship Specialty Start Date End Date (Hist), No Pcp PCP - General 11/04/17 Ileana Cortes MD NI Referring Team Neurosurgery 03/24/24 Business Information Manager Relationship Specialty Start Date End Date (Hist), No Pcp PCP - General 11/04/17 Ileana Cortes MD NI Referring Team Neurosurgery 03/24/24 Business Information Manager Relationship Specialty Start Date End Date (Hist), No Pcp PCP - General 11/04/17 Ileana Cortes MD NI Referring Team Neurosurgery 03/24/24 Business Information Manager Relationship Specialty Start Date End Date Jacob Viveros PCP - [employer] 11/22/21 Bia Cao MD [address] [place] [address] PCP - General Family Medicine 04/29/23 Business Information Manager Relationship Specialty Start Date End Date Jacob Viveros PCP - [employer] 11/22/21 Bia Cao MD [address] [place] [address] PCP - General Family Medicine 04/29/23 Business Information Manager Relationship Specialty Start Date End Date Jacob Viveros PCP - [employer] 11/22/21 Bia Cao MD [address] [place] [address] PCP - General Family Medicine 04/29/23 Business Information Manager Relationship Specialty Start Date End Date Jacob Viveros PCP - [employer] 11/22/21 Bia Cao MD [address] [place] [address] PCP - General Family Medicine 04/29/23 Business Information Manager Relationship Specialty Start Date End Date Jacob Viveros PCP - [employer] 11/22/21 Bia Cao MD [address] [place] [address] PCP - General Family Medicine 04/29/23 Business Information Manager Relationship Specialty Start Date End Date Jacob Viveros PCP - [employer] 11/22/21 Bia Cao MD [address] [place] [address] PCP - General Family Medicine 04/29/23 Business Information Manager Relationship Specialty Start Date End Date Jacob Viveros PCP - [employer] 11/22/21 Bia Cao MD [address] [place] [address] PCP - General Family Medicine 04/29/23 Business Information Manager Relationship Specialty Start Date End Date Jacob Viveros PCP - [employer] 11/22/21 Bia Cao MD [address] [place] [address] PCP - General Family Medicine 04/29/23 Business Information Manager Relationship Specialty Start Date End Date Jacob Viveros PCP - [employer] 11/22/21 Bia Cao MD [address] [place] [address] PCP - General Family Medicine 04/29/23 Business Information Manager Relationship Specialty Start Date End Date Bia Cao MD PCP - General Family Medicine 02/05/23 Business Information Manager Relationship Specialty Start Date End Date Bia Cao MD PCP - General Family Medicine 02/05/23 Business Information Manager Relationship Specialty Start Date End Date Bia Cao MD [address] [place] [address] PCP - General Family Medicine 04/29/23 Bia Cao MD [address] [place] [address] PCP - [employer] 11/22/21 Business Information Manager Relationship Specialty Start Date End Date Bia Cao MD [address] [place] [address] PCP - General Family Medicine 04/29/23 Bia Cao MD [address] [place] [address] PCP - [employer] 11/22/21 Business Information Manager Relationship Specialty Start Date End Date Bia Cao MD [address] [place] [address] PCP - General Family Medicine 04/29/23 Bia Cao MD [address] [place] [address] PCP - [employer] 11/22/21 Business Information Manager Relationship Specialty Start Date End Date Bia Cao MD [address] [place] [address] PCP - General Family Medicine 04/29/23 Bia Cao MD [address] [place] [address] PCP - [employer] 11/22/21 Business Information Manager Relationship Specialty Start Date End Date Bia Cao MD PCP - General Family Medicine 02/05/23 Business Information Manager Relationship Specialty Start Date End Date Bia Cao MD PCP - General Family Medicine 02/05/23 Business Information Manager Relationship Specialty Start Date End Date Bia Cao MD [address] [facility] [place] [address] PCP - General Family Medicine 04/29/23 Bia Cao MD [address] [facility] [place] [address] PCP - [employer] 11/22/21 Business Information Manager Relationship Specialty Start Date End Date Bia Cao MD [address] [facility] [place] [address] PCP - General Family Medicine 04/29/23 Bia Cao MD [address] [facility] [place] [address] PCP - [employer] 11/22/21 Business Information Manager Relationship Specialty Start Date End Date Bia Cao MD [address] [facility] [place] [address] PCP - General Family Medicine 04/29/23 Bia Cao MD [address] [facility] [place] [address] PCP - [employer] 11/22/21 Business Information Manager Relationship Specialty Start Date End Date Bia Cao MD [address] [place] [address] PCP - General Family Medicine 04/29/23 Bia Cao MD [address] [place] [address] PCP - [employer] 11/22/21 Business Information Manager Relationship Specialty Start Date End Date Bia Cao MD [address] [place] [address] PCP - General Family Medicine 04/29/23 Bia Cao MD [address] [place] [address] PCP - [employer] 11/22/21 Business Information Manager Relationship Specialty Start Date End Date Bia Cao MD [address] [place] [address] PCP - General Family Medicine 04/29/23 Bia Cao MD [address] [place] [address] PCP - [employer] 11/22/21 Business Information Manager Relationship Specialty Start Date End Date Bia Cao MD [address] [place] [address] PCP - General Family Medicine 04/29/23 Bia Cao MD [address] [place] [address] PCP - [employer] 11/22/21 Business Information Manager Relationship Specialty Start Date End Date Bia Cao MD [address] [facility] [place] [address] PCP - General Family Medicine 04/29/23 Bia Cao MD [address] [facility] [place] [address] PCP - [employer] 11/22/21 Business Information Manager Relationship Specialty Start Date End Date Bia Cao MD [address] [facility] [place] [address] PCP - General Family Medicine 04/29/23 Bia Cao MD [address] [facility] [place] [address] PCP - [employer] 11/22/21 Business Information Manager Relationship Specialty Start Date End Date Bia Cao MD [address] [facility] [place] [address] PCP - General Family Medicine 04/29/23 Bia Cao MD [address] [facility] [place] [address] PCP - [employer] 11/22/21 Business Information Manager Relationship Specialty Start Date End Date Bia Cao MD PCP - General Family Medicine 02/05/23 Business Information Manager Relationship Specialty Start Date End Date Bia Cao MD PCP - General Family Medicine 02/05/23 Business Information Manager Relationship Specialty Start Date End Date Bia Cao MD [address] [facility] [place] [address] PCP - General Family Medicine 04/29/23 Bia Cao MD [address] [place] [address] PCP - [employer] 11/22/21 Business Information Manager Relationship Specialty Start Date End Date Bia Cao MD PCP - General Family Medicine 02/05/23 Business Information Manager Relationship Specialty Start Date End Date Bia Cao MD PCP - General Family Medicine 02/05/23 Business Information Manager Relationship Specialty Start Date End Date Bia Cao MD PCP - General Family Medicine 02/05/23 Business Information Manager Relationship Specialty Start Date End Date Bia Cao MD PCP - General Family Medicine 02/05/23 Source Comments (unrecognize d section and content) In the event this informatio n is protected by the Federal Confidentiality of Alcohol and Drug Abuse Patient Records regulations: The Federal rules restrict any use of the information to criminally investigate or prosecute any alcohol or drug abuse patient.[facility] the event this information is protected by the Federal Confidentiality of Alcohol and Drug Abuse Patient Records regulations: The Federal rules restrict any use of the information to criminally investigate or prosecute any alcohol or drug abuse patient.[facility] the event this information is protected by the Federal Confidentiality of Alcohol and Drug Abuse Patient Records regulations: The Federal rules restrict any use of the information to criminally investigate or prosecute any alcohol or drug abuse patient.[facility] Center[facility] the event this information is protected by the Federal Confidentiality of Alcohol and Drug Abuse Patient Records regulations: The Federal rules restrict any use of the information to criminally investigate or prosecute any alcohol or drug abuse patient.[facility] Center[facility] the event this information is protected by the Federal Confidentiality of Alcohol and Drug Abuse Patient Records regulations: The Federal rules restrict any use of the information to criminally investigate or prosecute any alcohol or drug abuse patient.[facility] Center[facility] the event this information is protected by the Federal Confidentiality of Alcohol and Drug Abuse Patient Records regulations: The Federal rules restrict any use of the information to criminally investigate or prosecute any alcohol or drug abuse patient.[facility] FOR RECORDS PERTAINING TO PATIENTS [...] CLINICAL RECORDS. [facility] [employer] [facility]. provides no warranty or guarantee of the accuracy or completeness of information in this document.
== END 2025-04-04 07:40 | disposition home or self-care (01) ==
PROVIDERS: PCP Family Medicine; Visit Provider Nurse Practitioner
DX: M54.16 Radiculopathy, lumbar region (principal); M48.062 Spinal stenosis, lumbar region with neurogenic claudication; M46.1 Sacroiliitis, not elsewhere classified; M79.18 Myalgia, other site; Z79.891 Long term (current) use of opiate analgesic; M96.1 Postlaminectomy syndrome, not elsewhere classified
CPT/HCPCS: G0463

== ENCOUNTER 2025-04-23 10:02 | Day surgery (SDC) | payer MEDICARE, SELFPAY ==
[2025-04-23 10:43] VITALS: BP 136/62; PULSE 71; TEMP 36.4; O2SAT 95
[2025-04-23] MEDS: 0.9 % SODIUM CHLORIDE 10 ML SYRINGE - SALINE FLUSH INJ (11:07)
[2025-04-23] MEDS: IOHEXOL 240 MG/ML - 10 ML VIAL 12 MG INJ (11:08)
[2025-04-23] MEDS: BUPIVACAINE HCL 0.25% PF 25 MG/10 ML VIAL INJ (11:08)
[2025-04-23] MEDS: LIDOCAINE HCL 2% 400 MG/20 ML MDV INJ (11:08)
[2025-04-23] MEDS: METHYLPREDNISOLONE ACETATE 80 MG/ML VIAL INJ (11:09)
[2025-04-23 11:10] VITALS: BP 144/69; BP 179/75; PULSE 70; PULSE 79; O2SAT 96
--- NOTE | 2025-04-23 11:12 | P.ON_ITS ---
Date of procedure: 04/23/25 Pre-op diagnosis: Pain due to lumbar stenosis with neurogenic claudication Post-op diagnosis: same as pre-op Procedure: Procedure: Right L4-5, L5-S1 transforaminal epidural steroid injection Medications: Bupivacaine 0.25% 2cc, lidocaine 2% 1cc, depomedrol 80mg The patient was seen and examined in the preoperative holding area.? Informed consent was obtained and placed on the chart.? Patient was brought to the medical procedure unit and placed in the prone position where a timeout was completed verifying the correct patient, procedure site, position, and planned special equipment using sterile aseptic technique.? Under direct fluoroscopic visualization a 25-gauge Quincke tipped spinal needle was advanced to the designated neural foramen where contrast dye was injected to show adequate spread.? The needle was inserted at level right L4-5. There was no evidence of vascular or adverse uptake.? Epidural spread was appreciated.? The above- mentioned injectate was then placed in a 1.5 mL aliquot preceded by negative aspiration.? The needle was removed. The needle was inserted and the procedure repeated at level right L5-S1.? The surgery site was covered.? Patient was taken to the postprocedural recovery area and monitored for an appropriate length of time before found suitable for discharge in the accompaniment of a responsible adult. Anesthesia: Local Surgeon: Adelfo Hansen Pathology: none sent Condition: stable Disposition: no change
== END 2025-04-23 11:17 | disposition home or self-care (01) ==
LOC: SURGOUT 10:03
PROVIDERS: PCP Family Medicine; Visit Provider Anesthesiology
DX: M54.50 Low back pain, unspecified (principal); M48.062 Spinal stenosis, lumbar region with neurogenic claudication
CPT/HCPCS: 64483; 64484; J0665; J1010; Q9966

== ENCOUNTER 2025-05-02 11:01 | Outpatient (OUT) | payer MEDICARE, SELFPAY ==
--- OUTSIDE RECORDS SUMMARY | 2025-05-02 11:03 | XMS_ITS | Encounter Summary ---
Author Organization [facility] Address [address] [place] [address] Care Team Providers Care Production Technologist Name Role Phone Bia Cao MD Primary Care Provider [phone] Bia Cao MD Unavailable Encounter Details Date Type Department Care Team (Late Contact Info) Description 09/15/2023 Abstract [facility] [address] [facility] [place] [address] Bia Cao MD [address] [facility] [place], [place] [id number] Social History Tobacco Use Types Packs/Day Years Used Date Smoking Tobacco: Never Smokeless Tobacco: Never Alcohol Use Standard Drinks/Week Comments Yes 0 (1 standard drink = 0.6 oz pur e alcohol) caffeine: occasional PHQ-2 Answer Date Recorded Patient Health Questionnaire-2 Score 1 06/04/2023 Comments Unknown Sex and Gender Information Value Date Recorded Sex Assigned at Not on file Legal Sex Female 7:26 PM EDT Gender Identity Not on file Sexual Orientation Not on file documented as of this encounter Plan of Treatment Upcoming Encounters Date Type Department Care Team (Late Contact Info) Description 07/10/2025 1:00 PM EDT Office Visit [facility] [address] [facility] [place] [address] Bia Cao MD [address] [place], [place] [phone] documented as of this encounter Visit Diagnoses Not on filedocumented in this encounter Additional Health Concerns Assessment Noted Time PHQ-9 Depression Total Score: 6 06/04/20 23 3:00 PM EDT documented as of this encounter Care Teams Production Technologist Relationship Specialty Start Date End Date Bia Cao MD [address] [place] [address] PCP - General Family Medicine 04/29/23 Bia Cao MD [address] [place] [address] PCP - [employer] 11/22/21 documented as of this encounter
--- OUTSIDE RECORDS SUMMARY | 2025-05-02 11:03 | XMS_ITS | Encounter Summary ---
Author Organization [facility] Address [address] [facility] [place] [address] Care Team Providers Care Reduction Furnace Operator Helper Name Role Phone True Cao MD Primary Care Provider [phone] True Cao MD Unavailable Encounter Details Date Type Department Care Team (Late st Contact Info) Description 01/04/2024 Clinisync Result Encounter [facility] External Department Unsolicited Provider, Generic External Data Social History Tobacco Use Types Packs/Day Years Used Date Smoking Tobacco: Never Smokeless Tobacco: Never Alcohol Use Standard Drinks/Week Comments Yes 0 (1 standard drink = 0.6 oz pur e alcohol) caffeine: occasional PHQ-2 Answer Date Recorded Patient Health Questionnaire-2 Score 1 12/06/2023 Comments Unknown Sex and Gender Information Value Date Recorded Sex Assigned at Not on file Legal Sex Female 7:26 PM EDT Gender Identity Not on file Sexual Orientation Not on file documented as of this encounter Plan of Treatment Upcoming Encounters Date Type Department Care Team (Late st Contact Info) Description 07/10/2025 1:00 PM EDT Office Visit [facility] [address] [place] [id number] True Cao MD [address] [place] [address] documented as of this encounter Procedures Procedure Name Priority Date/Time Associated Diagnosis Comments XR CERVICAL SPINE W FLEX/EXT 01/04/2024 3:55 PM EST documented in this encounter Results * XR CERVICAL SPINE W FLEX/EXT (01/04/2024 3:55 PM EST) Anatomical Region Laterality Modality Other 01/04/2024 3:55 PM EST Narrative 01/04/2024 3:57 PM EST [address] [address] XRay Report Signed Patient: BOOKER RUTH MR#: [id number] : 1945 Acct:[id number] Age/Sex: 78 / F ADM Date: 01/04/24 Loc: RAD Attending Dr: Ilia Quintero NP Ordering Physician: Ilia Quintero NP Date of Service: 01/04/24 Procedure(s): XR cervical spine w flex/ext Accession Number(s): [id number] cc: TRUE CAO ; Ilia Quintero NP [address] [address] Patient Name: BOOKER RUTH MRN: [id number] date: 1945 Sex: F Assigned Patient Location: [facility] Current Patient Location: [facility] Accession/Order Number: [id number] Exam Date: 01/04/2024 14:20 Report Date: 01/04/2024 15:55 At the request of: ILIA QUINTERO Procedure: XR cervical spine w flex/ext EXAMINATION: XR cervical spine w flex/ext HISTORY: Neck Pain COMPARISON: No relevant comparison available. FINDINGS: BONES: Normal alignment of the cervical vertebral bodies with no acute fracture. 2 mm anterolisthesis of C4 on C5 in neutral projection, this increases to 3 mm with flexion and is stable with extension On neutral projection. 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 DISC SPACES: Normal. No significant disc height narrowing, subluxation, or endplate abnormality. PARASPINOUS: Negative. No paraspinous abnormality is seen. OTHER: Negative. XR/XR cervical spine w flex/ext IMPRESSION: Mild to moderate degenerative changes 2 mm anterolisthesis of C4 on C5 with minimal dynamic instability, increasing to 3 mm during flexion Electronically authenticated by: TISHA ARCE Date: 01/04/2024 15:55 Dictated By: Tisha Arce M.D. Signed By: 01/04/24 1557 DD/ 54 TD/TT: Decorative Engraver Apprentice: Procedure Note Radiology, Radiologist, - 01/04/2024 [facility] [place] [id number] XRay Report Signed Patient: APOLLO RUTH#: [id number] : 5Acct:[id number] Age/Sex: 78 / FADM Date: 01/04/24 Loc: RAD Attending Dr: Ilia Quintero NP Ordering Physician: Ilia Quintero NP Date of Service: 01/04/24 Procedure(s): XR cervical spine w flex/ext Accession Number(s): [id number] cc: TRUE CAO ; Ilia Quintero NP [facility] [place] [address] Patient Name: BOOKER RUTH MRN: [id number] date: 1945 Sex: F Assigned Patient Location: [facility] Current Patient Location: [facility] Accession/Order Number: [id number] Exam Date: 01/04/2024 14:20 Report Date: 01/04/2024 15:55 At the request of: ILIA QUINTERO Procedure: XR cervical spine w flex/ext EXAMINATION: XR cervical spine w flex/ext HISTORY: Neck Pain COMPARISON: No relevant comparison available. FINDINGS: BONES: Normal alignment of the cervical vertebral bodies with no acute fracture. 2 mm anterolisthesis of C4 on C5 in neutral projection, this increases to 3 mm with flexion and is stable with extension On neutral projection. 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 DISC SPACES: Normal. No significant disc height narrowing, subluxation, or endplate abnormality. PARASPINOUS: Negative. No paraspinous abnormality is seen. OTHER: Negative. XR/XR cervical spine w flex/ext IMPRESSION: Mild to moderate degenerative changes 2 mm anterolisthesis of C4 on C5 with minimal dynamic instability,increasing to 3 mm during flexion Electronically authenticated by: TISHA ARCE Date: 01/04/2024 15:55 Dictated By: Tisha Arce M.D. Signed By:01/04/24 1557 DD/ 1555 TD/TT: Decorative Engraver Apprentice: us Generic External Data Provider [facility] Final Result documented in this encounter Visit Diagnoses Not on filedocumented in this encounter Additional Health Concerns Assessment Noted Time PHQ-9 Depression Total Score: 7 12/06/19 24 2:00 PM EST documented as of this encounter Care Teams Reduction Furnace Operator Helper Relationship Specialty Start Date End Date True Cao MD [address] [place], [place] [id number] PCP - General Family Medicine 04/29/23 True Cao MD [address] [place] [address] PCP - [employer] 11/22/21 documented as of this encounter
--- OUTSIDE RECORDS SUMMARY | 2025-05-02 11:03 | XMS_ITS | Encounter Summary ---
Author Organization [facility] Address [address] [place] [address] Care Team Providers Care Associate Music Professor Name Role Phone Bia Cao MD Primary Care Provider [phone] Bia Cao MD Unavailable Reason for Visit * Reason Comments Med Refill Encounter Details Date Type Department Care Team (Late st Contact Info) Description 04/12/2023 Refill [facility] [address] [place] [phone] Bia Cao MD [address] [facility] [place] [address] Moderate persistent asthma, unspecified whether complicated (CMS/HCC) (Primary Dx) Social History Tobacco Use Types Packs/Day Years Used Date Smoking Tobacco: Never Assessed Comments Unknown Sex and Gender Information Value Date Recorded Sex Assigned at Not on file Legal Sex Female 7:26 PM EDT Gender Identity Not on file Sexual Orientation Not on file documented as of this encounter Miscellaneous Notes * Telephone Encounter - Bia Cao MD - 04/12/2023 12:13 PM EDT Approving, but needs appt for additional refills. documented in this encounter Plan of Treatment Upcoming Encounters Date Type Department Care Team (Late st Contact Info) Description 07/10/2025 1:00 PM EDT Office Visit [facility] [address] [place] [address] Bia Cao MD [address] [facility] [place], [place] [phone] documented as of this encounter Visit Diagnoses Diagnosis Moderate persistent asthma, unspecified whether complicated ([facility])- Primary documented in this encounter Care Teams Associate Music Professor Relationship Specialty Start Date End Date Bia Cao MD [address] [place] [address] PCP - General Family Medicine 04/29/23 Bia Cao MD [address] [facility] [place], [place] [phone] PCP - [employer] 11/22/21 documented as of this encounter
--- OUTSIDE RECORDS SUMMARY | 2025-05-02 11:03 | XMS_ITS | Encounter Summary ---
Author Organization [facility] Address [address] [place] [address] Care Team Providers Care Stevedore Dock Name Role Phone Bia Cao MD Primary Care Provider [phone] Bia Cao MD Unavailable Encounter Details Date Type Department Care Team (Late st Contact Info) Description 09/27/2023 Orders Only [facility] [address] [facility] [address] [facility] [place] [address] Hannah Olson NP Acute cystitis with hematuria (Primary Dx) Social History Tobacco Use Types [...] PM EDT Office Visit [facility] [address] [facility] [place] [address] Bia Cao MD [address] [facility] [place] [address] documented as of this encounter Visit Diagnoses Diagnosis Acute cystitis with hematuria- Primary documented in this encounter Additional Health Concerns Assessment Noted Time PHQ-9 Depression Total Score: 6 06/04/20 23 3:00 PM EDT documented as of this encounter Care Teams Stevedore Dock Relationship Specialty Start Date End Date Bia Cao MD [address] [place] [address] PCP - General Family Medicine 04/29/23 Bia Cao MD [address] [place] [address] PCP - [employer] 11/22/21 documented as of this encounter
--- OUTSIDE RECORDS SUMMARY | 2025-05-02 11:03 | XMS_ITS | Encounter Summary ---
Author Organization [facility] Address [address] [place] [address] Care Team Providers Care Caramel Cutter Helper Name Role Phone Bia Cao MD Primary Care Provider Bia Cao MD Unavailable Encounter Details Date Type Department Care Team (Late st Contact Info) Description 08/26/2024 Abstract [facility] [address] [facility] [place] [address] Bia Cao MD [address] [facility] [place] [address] Social History Tobacco Use Types Packs/Day Years Used Date Smoking Tobacco: Never Smokeless Tobacco: Never Comments:Second hand smoke f rom Father Alcohol Use Standard Drinks/Week Comments Not Currently 0 (1 standard drink = 0.6 oz pur e alcohol) caffeine: occasional Social Connection and Isolat ion Panel [NHANES] Answer Date Recorded In a typical week, how many times do you talk on the phone with family, friends, or neighbors? More than three times a week 04/02/2024 How often do you get togethe r with friends or relatives? More than three times a week 04/02/2024 How often do you attend chur ch or voodoo services? More than 4 times per year 04/02/2024 Do you belong to any clubs o r organizations such as methodist groups, unions, fraternal or athletic groups, or school groups? Yes 04/02/2024 How often do you attend meet ings of the clubs or organizations you belong to? More than 4 times per year 04/02/2024 Are you , , di vorced, , never , or living with a partner? 04/02/2024 AUDIT-C Answer Date Recorded Q1: How often do you have a drink containing alcohol? Never 04/02/2024 Q2: How many drinks containi ng alcohol do you have on a typical day when you are drinking? Patient does not drink Q3: How often do you have si x or more drinks on one occasion? Never 04/02/2024 Overall Financial Resource Strain (CARDIA) Answe r Date Recorded How hard is it for you to pa y for the very basics like food, housing, medical care, and heating? Not very hard 04/02/2024 PHQ-2 Answer Date Recorded Patient Health Questionnaire-2 Score 0 08/14/2024 [facility] - Occupational Stress Questionnaire Answer Date Recorded Do you feel stress - tense, restless, nervous, or anxious, or unable to sleep at night because your mind is troubled all the time - these days? Rather much 04/02/2024 Exercise Vital Sign Answer Date Recorde d On average, how many days pe r week do you engage in moderate to strenuous exercise (like a brisk walk)? 3 days 04/02/2024 On average, how many minutes do you engage in exercise at this level? 10 min 04/02/2024 Hunger Vital Sign Answer Date Recorded Within the past 12 months, y ou worried that your food would run out before you got the money to buy more. Never true 04/02/20 24 Within the past 12 months, t he food you bought just didn't last and you didn't have money to get more. Never true 04/02/2024 PRAPARE - Transportation Answer Date Re corded Lack of Transportation (Medical) Not on file 04/02/2024 In the past 12 months, has l ack of transportation kept you from meetings, work, or from getting things needed for daily living? No 04/02/2024 Housing Stability Vital Sign Answer Tyler e Recorded In the last 12 months, was t here a time when you were not able to pay the mortgage or rent on time? Yes 04/02/2024 In the last 12 months, how many places have you lived? 1 04/02/2024 In the last 12 months, was t here a time when you did not have a steady place to sleep or slept in a detention (including now)? No 04/02/2024 Comments Unknown Sex and Gender Information Value Date Recorded Sex Assigned at Not on file Legal Sex Female 7:26 PM EDT Gender Identity Not on file Sexual Orientation Not on file documented as of this encounter Plan of Treatment Upcoming Encounters Date Type Department Care Team (Late st Contact Info) Description 07/10/2025 1:00 PM EDT Office Visit [facility] [address] [place] [address] Bia Cao MD [address] [facility] [place] [address] documented as of this encounter Goals Goal Patient Goal Type Associated Problems Recent Progress Patient-Stated? Author Help patient manage antidepressant medication Care Plan Patient on antidepressant monitoring plan No Bia Cao MD documented as of this encounter Visit Diagnoses Not on filedocumented in this encounter Additional Health Concerns Active Problems Noted Date Diagnosed Date Patient on antidepressant monitoring plan 2023 Assessment Noted Time PHQ-9 Depression Total Score: 7 12/06/19 24 2:00 PM EST documented as of this encounter Care Teams Caramel Cutter Helper Relationship Specialty Start Date End Date Bia Cao MD [address] [facility] [place] [address] PCP - General Family Medicine 04/29/23 Bia Cao MD [address] [facility] [place] [address] PCP - [employer] 11/22/21 documented as of this encounter
--- OUTSIDE RECORDS SUMMARY | 2025-05-02 11:03 | XMS_ITS | Encounter Summary ---
Author Organization [facility] Address [address] [place] [address] Care Team Providers Care Orthotic Finish Grinding Technician Name Role Phone Bia Cao MD Primary Care Provider [phone] Bia Cao MD Unavailable Encounter Details Date Type Department Care Team (Late Contact Info) Description 01/31/2024 Abstract [facility] [address] [facility] [place] [address] Bia Cao MD [address] [facility] [address] [place], [place] [phone] Social History Tobacco Use Types Packs/Day Years [...] [facility] [address] [facility] [place] [address] Bia Cao MD [address] [place], [place] [phone] documented as of this encounter Visit Diagnoses Not on filedocumented in this encounter Additional Health Concerns Assessment Noted Time PHQ-9 Depression Total Score: 7 12/06/19 24 2:00 PM EST documented as of this encounter Care Teams Orthotic Finish Grinding Technician Relationship Specialty Start Date End Date Bia Cao MD [address] [place] [address] PCP - General Family Medicine 04/29/23 Bia Cao MD [address] [place] [address] PCP - [employer] 11/22/21 documented as of this encounter
--- OUTSIDE RECORDS SUMMARY | 2025-05-02 11:03 | XMS_ITS | Encounter Summary ---
Author Organization [facility] Address [address] [place] [address] Care Team Providers Care Senior Housekeeper Name Role Phone Bia Cao MD Primary Care Provider [phone] Bia Cao MD Unavailable Encounter Details Date Type Department Care Team (Late Contact Info) Description 09/05/2023 Abstract [facility] [address] [place] [address] Aruna Petty LISW-S [address] [place], [place] [phone] Social History Tobacco Use Types Packs/Day Years [...] 1:00 PM EDT Office Visit [facility] [address] [place] [address] Bia Cao MD [address] [place], [place] [phone] documented as of this encounter Visit Diagnoses Not on filedocumented in this encounter Additional Health Concerns Assessment Noted Time PHQ-9 Depression Total Score: 6 06/04/20 23 3:00 PM EDT documented as of this encounter Care Teams Senior Housekeeper Relationship Specialty Start Date End Date Bia Cao MD [address] [place] [address] PCP - General Family Medicine 04/29/23 Bia Cao MD [address] [place] [address] PCP - [employer] 11/22/21 documented as of this encounter
--- OUTSIDE RECORDS SUMMARY | 2025-05-02 11:03 | XMS_ITS | Encounter Summary ---
Author Organization [facility] Address [address] [place] [address] Care Team Providers Care Wallpaper Printer Helper Name Role Phone Bia Cao MD Primary Care Provider [phone] Bia Cao MD Unavailable Encounter Details Date Type Department Care Team (Late Contact Info) Description 07/06/2023 Abstract [facility] [address] [facility] [place] [address] Bia Cao MD [address] [facility] [address] [place], [place] [phone] Social History Tobacco Use Types Packs/Day Years [...] PM EDT Office Visit [facility] [address] [facility] [place] [address] Bia Cao MD [address] [place], [place] [phone] documented as of this encounter Visit Diagnoses Not on filedocumented in this encounter Additional Health Concerns Assessment Noted Time PHQ-9 Depression Total Score: 6 06/04/20 23 3:00 PM EDT documented as of this encounter Care Teams Wallpaper Printer Helper Relationship Specialty Start Date End Date Bia Cao MD [address] [place] [address] PCP - General Family Medicine 04/29/23 Bia Cao MD [address] [place] [address] PCP - [employer] 11/22/21 documented as of this encounter
--- OUTSIDE RECORDS SUMMARY | 2025-05-02 11:03 | XMS_ITS | Encounter Summary ---
Author Organization [facility] Address [address] [place] [address] Care Team Providers Care Electric Freight Car Operator Name Role Phone Bia Cao MD Primary Care Provider [phone] Bia Cao MD Unavailable Encounter Details Date Type Department Care Team (Late Contact Info) Description 09/20/2023 Abstract [facility] [address] [facility] [place] [address] Bia Cao MD [address] [facility] [address] [place], [place] [id number] Social History Tobacco Use Types Packs/Day Years [...] PM EDT Office Visit [facility] [address] [facility] [place] [address] Bia Cao MD [address] [place], [place] [phone] documented as of this encounter Visit Diagnoses Not on filedocumented in this encounter Additional Health Concerns Assessment Noted Time PHQ-9 Depression Total Score: 6 06/04/20 23 3:00 PM EDT documented as of this encounter Care Teams Electric Freight Car Operator Relationship Specialty Start Date End Date Bia Cao MD [address] [place] [address] PCP - General Family Medicine 04/29/23 Bia Cao MD [address] [place] [address] PCP - [employer] 11/22/21 documented as of this encounter
--- OUTSIDE RECORDS SUMMARY | 2025-05-02 11:03 | XMS_ITS | Encounter Summary ---
Author Organization [facility] Address [address] [place] [address] Care Team Providers Care Patient Safety Manager Name Role Phone Bia Cao MD Primary Care Provider [phone] Bia Cao MD Unavailable Encounter Details Date Type Department Care Team (Late st Contact Info) Description 03/25/2025 Abstract [facility] [address] [facility] [place] [address] Bia Cao MD [address] [facility] [place] [address] Social History Tobacco Use Types [...] often do you attend chur ch or anabaptist services? More than 4 times per year 04/02/2024 Do you belong to any clubs o r organizations such as voodoo groups, unions, fraternal or athletic groups, or [...] Recorded Patient Health Questionnaire-2 Score 0 08/14/2024 [facility] - Occupational [...] place to sleep or slept in a alf (including now)? No 04/02/2024 Comments Unknown Sex [...] EDT Office Visit [facility] [address] [place] [address] Bia Cao MD [address] [facility] [place] [place] [address] documented as of this encounter Goals Goal [...] documented as of this encounter Care Teams Patient Safety Manager Relationship Specialty Start Date End Date Bia Cao MD [address] [facility] [place] [address] PCP - General Family Medicine 04/29/23 iBa Cao MD [address] [facility] [place] [address] PCP - [employer] 11/22/21 documented as of this encounter
--- OUTSIDE RECORDS SUMMARY | 2025-05-02 11:03 | XMS_ITS | Encounter Summary ---
Author Organization [facility] Address [address] [place] [address] Care Team Providers Care Missile Pad Mechanic Name Role Phone Bia Cao MD Primary Care Provider [phone] Bia Cao MD Unavailable Encounter Details Date Type Department Care Team (Late Contact Info) Description 07/20/2023 Abstract [facility] [address] [facility] [place] [address] Bia Cao MD [address] [facility] [address] [place], [place] [id number] Social History Tobacco Use Types Packs/Day Years [...] PM EDT Office Visit [facility] [address] [facility] [place] [address] Bia Cao MD [address] [place], [place] [id number] documented as of this encounter Visit Diagnoses Not on filedocumented in this encounter Additional Health Concerns Assessment Noted Time PHQ-9 Depression Total Score: 6 06/04/20 23 3:00 PM EDT documented as of this encounter Care Teams Missile Pad Mechanic Relationship Specialty Start Date End Date Bia Cao MD [address] [place] [address] PCP - General Family Medicine 04/29/23 Bia Cao MD [address] [place] [address] PCP - [employer] 11/22/21 documented as of this encounter
--- OUTSIDE RECORDS SUMMARY | 2025-05-02 11:03 | XMS_ITS | Encounter Summary ---
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 (Primary Dx) Social History Tobacco Use Types [...] Telephone Encounter - Bia Cao MD - 07/06/2023 1:30 PM EDT Approvals with refills documented in this encounter Plan of Treatment Upcoming Encounters Date Type Department Care Team (Late st Contact Info) Description 07/10/2025 1:00 PM EDT Office Visit [facility] [address] [facility] [place] [address] Bia Cao MD [address] [facility] [place] [address] documented as of this encounter Visit Diagnoses Diagnosis Spinal stenosis of lumbar region without neurogenic claudication- Primary documented in this encounter Additional Health Concerns Assessment Noted Time PHQ-9 Depression Total Score: 6 06/04/20 3:00 PM EDT documented as of this encounter Care Teams Carpenter Wooden [employer] Erecting Relationship Specialty Start Date End Date Bia Cao MD [address] [facility] [place], [place] [phone] PCP - General Family Medicine 04/29/23 Bia Cao MD [address] [facility] [place], [place] [phone] PCP - [employer] 11/22/21 documented as of this encounter
--- OUTSIDE RECORDS SUMMARY | 2025-05-02 11:03 | XMS_ITS | Encounter Summary ---
Author Organization [facility] Address [address] [place] [address] Care Team Providers Care Middle School Band Teacher Name Role Phone Bia Cao MD Primary Care Provider [phone] Bia Cao MD Unavailable Encounter Details Date Type Department Care Team (Late st Contact Info) Description 10/07/2024 Abstract [facility] [address] [facility] [place] [address] Bia Cao MD [address] [facility] [place] [address] Social History Tobacco Use Types [...] often do you attend chur ch or taoism services? More than 4 times per year 04/02/2024 Do you belong to any clubs o r organizations such as congregation groups, unions, fraternal or athletic groups, or [...] Recorded Patient Health Questionnaire-2 Score 0 08/14/2024 [facility] - Occupational Stress [...] place to sleep or slept in a retirement (including now)? No 04/02/2024 Comments Unknown Sex [...] EDT Office Visit [facility] [address] [place] [address] Bia Cao MD [address] [facility] [place] [address] documented as of this encounter Goals Goal [...] documented as of this encounter Care Teams Middle School Band Teacher Relationship Specialty Start Date End Date Bia Cao MD [address] [facility] [place] [address] PCP - General Family Medicine 04/29/23 Bia Cao MD [address] [facility] [place] [address] PCP - [employer] 11/22/21 documented as of this encounter
--- OUTSIDE RECORDS SUMMARY | 2025-05-02 11:03 | XMS_ITS | Encounter Summary ---
Author Organization [facility] Address [address] [facility] [address] Care Team Providers Care Radiation Therapist Name Role Phone Bia Cao MD Primary Care Provider [phone] Bia Cao MD Unavailable Encounter Details Date Type Department Care Team (Late Contact Info) Description 07/10/2023 Orders Only [facility] [address] [facility] [place] [address] Bia Cao MD [address] [facility] [address] [place], [place] [phone] Social History Tobacco Use Types Packs/Day Years [...] PM EDT Office Visit [facility] [address] [facility] [address] [facility] [place] [address] Bia Cao MD [address] [place] [address] documented as of this encounter Procedures Procedure Name Priority Date/Time Associated Diagnosis Comments X RAY : HIP, RIGHT Routine 07/07/2023 9:18 AM EDT documented in this encounter Results * X RAY : HIP, RIGHT (07/07/2023 9:18 AM EDT) Anatomical Region Laterality Modality Radiographic Zaira ging Bia Cao MD IMG XR PROCEDURES Final Result documented in this encounter Visit Diagnoses Not on filedocumented in this encounter Additional Health Concerns Assessment Noted Time PHQ-9 Depression Total Score: 6 06/04/20 3:00 PM EDT documented as of this encounter Care Teams Radiation Therapist Relationship Specialty Start Date End Date Bia Cao MD [address] [facility] [address] [place], [place] [id number] PCP - General Family Medicine 04/29/23 Bia Cao MD [address] [place] [address] PCP - [employer] 11/22/21 documented as of this encounter
--- OUTSIDE RECORDS SUMMARY | 2025-05-02 11:03 | XMS_ITS | Clinical Summary ---
Author Organization [facility] Address [address] [place] [address] Care Team Providers Care Assistant Professor Of Education Name Role Phone Bia Cao MD Primary Care Provider [phone] Bia Cao MD Unavailable Allergies Active Allergy Reactions Criticality Noted Date Comments Aspartame Unknown Low 02/12/2017 migraines Amoxicillin-Pot Clavulanate Rash Low 06/04/2023 Clavulanic Acid Rash Low 02/12/2017 Clemizole Rash Low 02/12/2017 Egg-Derived Products Swelling,Unknown 1 Says about 1964? and only one arm affected. No rash, hives, or trouble breathing Indomethacin Unknown High 05/02/2021 fainting Influenza Vaccines Rash Low 06/04/2023 Grown on eggs Lincomycin Anaphylaxis,Rash High 08/14/2011 Lincomycin Hcl Unknown 12/01/2021 Other Swelling Medium 02/12/2017 Penicillins Rash Low 06/04/2023 Poultry Meal 03/02/2023 Sulfa Antibiotics Hives Medium 11/11/2022 Sulfamethoxazole-Trimeth oprim Hives 10/22/2023 Wound Dressing Adhesive Rash Low 06/04/2023 Medications fexofenadine (Ally Allergy) 180 MG tablet 1 (one) time each day at the same time. Active cholecalciferol (Vitamin D-3) 25 MCG (1000 UT) tablet 1,000 Units in the morning. Take before meals. Active Calcium Carb-Cholecalcife rol 600-20 MG-MCG tablet Take 600 mg by mouth at bedtime. Active aspirin 81 MG EC tablet Take 81 mg by mouth in the morning. Active Ascorbic Acid (vitamin C) 1000 MG tablet 1 (one) time each day at the same time. Active multivitamin with minerals (Centrum) 9-200 mg-mcg tablet split tablet multivitamin Multiple Vitamins Active MAGNESIUM PO Take 500 mg by mouth in the morning. Active levothyroxine (Synthroid, Levoxyl) 150 MCG tablet 1 tablet in the morning on an empty stomach Orally Mon thru Sat, skip Wednesday02/11/20 23 Active Lactobacillus (Florajen Women) capsule as directed Orally A ctive albuterol HFA 90 mcg/act inhalerIndication s:Mild intermittent asthma without complication (CMS/HCC) Inhale 2 puffs every 4 (four) hours. 18 g 11 06/04/20 23 Active Additional Information Patient taking differently:2 puff InhalationEvery 4 hours PRN, shortness of breath, wheezing, Reported on 04/09/2025 buprenorphine (Butrans) 7.5 MCG/HR Place 1 patch on the skin 1 (one) time per week. Active fluticasone (Flonase) 50 MCG/ACT nasal sprayIndications: Allergic rhinitis due to pollen, unspecified seasonality Administer 1-2 sprays into each nostril in the morning. Shake gently. Before first use, prime pump. After use, clean tip and replace cap.. 16 g 2 08/23/20 23 Active methocarbamol (Robaxin) 500 MG tablet Take 1,000 mg by mouth at bedtime 04/19/20 24 Active hydrALAZINE (Apresoline) 50 MG tablet Take 50 mg by mouth Only if bp is above 170, an hour after taking 100mg hydralazine. Active amitriptyline (Elavil) 50 MG tabletIndications :Primary insomnia Take 1 tablet (50 mg) by mouth at bedtime 90 tablet 3 08/08/20 24 2024 Active fenofibrate (Triglide) 160 MG tabletIndications :Hyperlipidemia, unspecified hyperlipidemia type (CMS/HCC) Take 1 tablet (160 mg) by mouth in the morning. 40 tablet 11 11/06/20 24 Active ferrous sulfate 325 (65 Fe) MG tabletIndications :Anemia, unspecified type Take 1 tablet (325 mg) by mouth in the morning and 1 tablet (325 mg) in the evening. Take with meals. 200 tablet 3 11/29/19 25 2025 Active omeprazole (PriLOSEC) [address] capsuleIndication s:Gastroesophagea l reflux disease without esophagitis Take 1 capsule (40 mg) by mouth in the morning. 100 capsule 11 12/12/19 25 2027 Active mirtazapine (Remeron) 15 MG tabletIndications :Primary insomnia,Major depressive disorder, single episode, in full remission (CMS/HCC) Take 1 tablet (15 mg) by mouth at bedtime 90 tablet 1 12/26/19 25 2024 Active famotidine (Pepcid) 20 MG tabletIndications :Gastroesophageal reflux disease without esophagitis Take 1 tablet (20 mg) by mouth at bedtime 90 tablet 3 12/26/19 25 2025 Active atorvastatin (Lipitor) 40 MG tabletIndications :Mixed hyperlipidemia (CMS/HCC) Take 1 tablet (40 mg) by mouth Daily 90 tablet 01/03/20 Active escitalopram (Lexapro) 20 MG tabletIndications :Anxiety Take 1 tablet (20 mg) by mouth in the evening. Take with meals 100 tablet 01/03/20 25 2025 Active romosozumab (Evenity) 105 MG/1.17ML prefilled syringe Inject 210 mg under the skin every 30 (thirty) days Active oxybutynin XL (Ditropan-XL) 10 MG 24 hr tabletIndications :Stress incontinence of urine Take 1 tablet (10 mg) by mouth Daily 90 tablet 02/01/20 Active carvedilol (Coreg) 25 MG tabletIndications :Essential hypertension (CMS/HCC) Take 1 tablet (25 mg) by mouth in the morning and 1 tablet (25 mg) before bedtime. 180 tablet 02/07/20 25 2025 Active hydrALAZINE (Apresoline) 100 MG tabletIndications :Essential hypertension (CMS/HCC) Take 1 tablet (100 mg) by mouth in the morning. 90 tablet 02/20/20 25 2025 Active zafirlukast (Accolate) 20 MG tabletIndications :Moderate persistent asthma, unspecified whether complicated (CMS/HCC) Take 1 tablet (20 mg) by mouth in the morning and 1 tablet (20 mg) before bedtime. 180 tablet 3 03/22/20 25 Active Ubrelvy 100 MG tablet Take 1 tablet by mouth Daily as needed (migraine) 02/27/20 25 Active CRANBERRY CONCENTRATE PO Take 1 tablet by mouth Daily Active lisinopril-hydroC HLOROthiazide 20-12.5 MG tabletIndications :Essential hypertension (CMS/HCC) Take 1 tablet by mouth in the morning. 90 tablet 3 04/09/20 25 Active lisinopril-hydroC HLOROthiazide 20-12.5 MG tabletIndications :Essential hypertension (CMS/HCC) TAKE 1 TABLET BY MOUTH IN THE MORNING 90 tablet 12/26/19 25 2024 Disconti nued(Reo rder) Active Problems Problem Noted Date Diagnosed Date Family history of breast cancer in mother 2024 Family history of malignant neoplasm of breast in second degree female relative diagnosed before 50 years of age 0301/23/2025 Family history of malignant neoplasm of ovary in second degree relative 01/23/2025 Midline cystocele 01/23/2025 Lung nodule 02/15/2024 Brain lesion 02/15/2024 History of falling 11/04/2023 Primary insomnia 06/04/2023 Nocturnal leg cramps 06/04/2023 Age-related osteoporosis wit hout current pathological fracture 06/04/2023 Stage 3b chronic kidney disease (CKD) 06/04/2023 Bilateral nephrolithiasis 03/02/2023 Primary osteoarthritis of right knee 09/17/2021 Gastroesophageal reflux disease without esophagi tis 09/15/2021 1st degree AV block 06/10/2021 Mixed stress and urge urinary incontinence 10/29 Major depressive disorder, s vandana episode, in full remission 10/24/2019 Acquired hypothyroidism 09/29/2019 Chronic idiopathic constipation 07/10/2019 Balance problem 06/12/2019 Bilateral occipital neuralgia 03/02/2019 Essential tremor 12/12/2018 History of depression 2018 Trochanteric bursitis of both hips 11/03/2017 Recurrent falls 11/01/2017 Other specified depressive episodes 02/12/2017 Herniation of lumbar intervertebral disc with ra diculopathy 01/07/2017 Degeneration of lumbosacral intervertebral disc 08/14/2016 Asthma 03/26/2016 History of lumbar fusion 12/11/2015 Hyperlipidemia 11/08/2015 Essential hypertension 03/13/2013 Overview (06/04/2023): Managed by dr cifuentes Spinal stenosis of lumbar region 08/14/2011 Overview (06/04/2023): Added automatically from request for surgery [id number] Added automatically from request for surgery [id number] Impingement syndrome of right shoulder 1 Resolved Problems Problem Noted Date Diagnosed Date Resolved Date Migraine without status migr ainosus, not intractable 06/04/2023 10/24/2023 Lumbago with sciatica, right side 06/04/2023 10/24/2023 Adjustment disorder with anxiety 05/04/2023 10/24/2023 Cervical spondylosis without myelopathy 04/01/2022 06/04/2023 Overview (06/04/2023): Added automatically from request for surgery [id number] Age related osteoporosis 12/19/201901/2023 Disc displacement, lumbar 05/05/2019 Overview (06/04/2023): Added automatically from request for surgery [id number] Herniation of nucleus pulpos us of lumbar intervertebral disc with sciatica 01/14/20172022 Encounters Date Type Department Care Team Description 04/09/2025 1:40 PM EDT Office Visit [facility] [address] [place] [address] Bia Cao MD Intractable migraine with aura without status migrainosus (CMS/HCC) (Primary Dx); Fall, subsequent encounter; Essential hypertension (CMS/HCC) 04/09/2025 Bamboo flowsheet [facility] [address] [facility] [address] [place] [address] Bia Cao MD 04/09/2025 Travel 03/25/2025 Abstract [facility] [address] [facility] [place] [address] Bia Cao MD 03/22/2025 Refill [facility] [address] [place] [address] Bia Cao MD Moderate persistent asthma, unspecified whether complicated (CMS/HCC) 02/19/2025 Refill [facility] [address] [place] [address] Bia Cao MD Essential hypertension (CMS/HCC) (Primary Dx) 02/13/2025 2:00 PM EDT Ancillary Procedure [facility] [address] [facility] [facility] [place] [address] Right flank pain; Hematuria, unspecified type 02/13/2025 Telephone [facility] [address] [place] [address] Alyce Marrero MA Results 02/13/2025 Travel 02/12/2025 Telephone [facility] [address] [place] [address] Bia Cao MD 02/06/2025 1:20 PM EDT Office Visit [facility] [address] [place] [address] Bia Cao MD Right flank pain (Primary Dx); Hematuria, unspecified type; Lung nodule; Essential hypertension (CMS/HCC); Major depressive disorder, single episode, in full remission (CMS/HCC); Age-related osteoporosis without current pathological fracture (CMS/HCC); Acquired hypothyroidism (CMS/HCC); Stage 3b chronic kidney disease (CKD) (CMS/HCC); Moderate persistent asthma without complication (CMS/HCC) 02/06/2025 Bamboo flowsheet [facility] [address] [place] [address] Bia Cao MD 02/06/2025 Travel 01/31/2025 Refill [facility] [address] [place] [address] Bia Cao MD Stress incontinence of urine from Last 3 Months Immunizations Immunization Administration Dates Next Due Influenza, High Dose Seasonal, Preservative Free 09/17/2020 Influenza, injectable, quadrivalent, preservativ e free 08/29/2018 Influenza, recombinant, quad rivalent, injectable, preservative free 08/30/2019 Influenza, seasonal, injectable, preservative fr ee 08/22/2015 Moderna SARS-CoV-2 Vaccination 03/11/2021,2020 Pneumococcal Conjugate PCV 13 11/12/2020 Pneumococcal Polysaccharide PPSV23 08/13/2015, RSV, recombinant, protein morgan bunit RSVpreF, adjuvant reconstitu, 120mcg/0.5mL, PF (Arexvy) 10/26/2024 Td (adult), 5 Lf tetanus tox oid, preservative free, adsorbed 08/21/2011 Zoster, live 11/22/2009 Family History Medical History Relation Name Comments Arthritis Father Dre Baer Asthma Father Dre Baer COPD Father Dre Baer Cancer Father Dre Baer Alcohol abuse Father's Brother 1 Jesús Baer COPD Father's Brother 2 Jluis Baer Cancer Mother Chloe Baer Hypertension Mother Chloe Baer Cancer Mother's Sister 1 Jannette Kness Cancer Mother's Sister 2 Nisa Dunham Cancer Mother's Sister 3 Janet Mejia Early natural Mother's Sister 4 Lorna Pittenger Stroke Paternal Grandfather Tra Baer Diabetes Paternal Grandmother Sandra Baer Hearing loss Paternal Grandmother Sandra Baer Stroke Paternal Grandmother Sandra Baer Drug abuse Neg Hx Mental illness Neg Hx Relation Name Status Comments Father Dre Baer Father's Brother 1 Jesús Baer Father's Brother 2 Jluis Baer Mother Chloe Baer Mother's Sister 1 Jannette Kness Mother's Sister 2 Nisa Dunham Mother's Sister 3 Janet Mejia Mother's Sister 4 Lorna Pittenger Paternal Grandfather Tra Baer Paternal Grandmother Sandra Baer Social History Tobacco Use Types Packs/Day Years Used Date Smoking Tobacco: Never Smokeless Tobacco: Never Tobacco Cessation:Counseling Given: Not Answered Comments:Second hand smoke from Father Alcohol Use Standard Drinks/Week Comments Not [...] often do you attend chur ch or zoroastrianism services? More than 4 times per year 04/02/2024 Do you belong to any clubs o r organizations such as confucianist groups, unions, fraternal or athletic groups, or [...] Recorded Patient Health Questionnaire-2 Score 0 08/14/2024 [facility] - Occupational Stress Questionnaire Answer Date Recorded [...] place to sleep or slept in a long-term (including now)? No 04/02/2024 Comments Unknown Sex and Gender Information Value Date Recorded Sex Assigned at Not on file Legal Sex Female 7:26 PM EDT Gender Identity Not on file Sexual Orientation Not on file Last Filed Vital Signs Vital Sign Reading Time Taken Comments Blood Pressure 124/62 04/09/2025 1:33 PM EDT Pulse 75 04/09/2025 1:33 PM EDT Temperature 36.3 C (97.4 F) 01/23/2025 4:22 PM EST Respiratory Rate 18 04/09/2025 1:33 PM EDT Oxygen Saturation 96% 04/09/2025 1:33 PM EDT Inhaled Oxygen Concentration - - Weight 66.2 kg (146 lb) 04/09/2025 1:33 PM EDT Height 160 cm (5' 3 ) 04/09/2025 1:33 PM EDT Body Mass Index 25.86 04/09/2025 1:33 PM EDT Plan of Treatment Upcoming Encounters Date Type Department Care Team (Late st Contact Info) Description 07/10/2025 1:00 PM EDT Office Visit [facility] [address] [facility] [address] [address] [facility] [place] [address] Bia Cao MD [address] [facility] [address] [place] [address] Health Maintenance Due Date Last Done Comments Influenza Vaccine (Season Ended) 2025 09/17/2020, 08/30/2019, 08/29/2018, Additional history exists Pneumococcal Vaccine: 65+ Years Completed 11/12/2020, 08/13/2015, 08/31/2003 Goals Goal Patient Goal Type Associated Problems Recent Progress Patient-Stated? Author Help patient manage antidepressant medication Care Plan Patient on antidepressant monitoring plan Bia Hamilton MD Procedures Procedure Name Priority Date/Time Associated Diagnosis Comments CT ABDOMEN PELVIS WO IV CONTRAST Routine 02/13/2025 2:37 PM EDT Right flank pain Hematuria, unspecified type POCT URINALYSIS DIPSTICK Routine 02/06/2025 3:12 PM EDT Right flank pain Hematuria, unspecified type from Last 3 Months Results * CT abdomen pelvis wo IV contrast (02/13/2025 2:37 PM EDT) Anatomical Region Laterality Modality Body, Pelvis, Abdomen Computed T omography Abdominal wall procedure / Unknown 02/13/2025 4:08 PM EDT Narrative 02/13/2025 4:[address] ABDOMEN PELVIS WO IV CONTRAST HISTORY: [...] signed and approved by the interpreting Radiologist. Procedure Note Ryan Lamas MD - 02/13/2025 CT ABDOMEN PELVIS WO IV CONTRAST HISTORY: Right flank pain, hematuria, recent urinary tract infection COMPARISON: None. TECHNIQUE: The study consists of helical images obtained through theabdomen and pelvis without the use of intravenous contrast. Coronal andsagittal reformations were reconstructed. The patient tolerated theprocedure and there were no immediate complications. FINDINGS: ABDOMEN: VISUALIZED CHEST: Visualized portions of the lungs show no consolidationor effusions. LIVER: No focal mass or intrahepatic biliary dilatation. GALLBLADDER: Removed SPLEEN: No focal masses or enlargement. KIDNEYS: The kidneys are atrophic. Punctate right renal calculi but nohydronephrosis.. ADRENALS: No adrenal mass is seen. PANCREAS: No contour deforming lesions are seen. RETROPERITONEUM: Atheromatous plaque is seen. BOWEL: No abnormally dilated loops of bowel are seen. PELVIS COLON: There is retained stool in the rectum and also to a lesser degreethe colon. There are few diverticuli in the distal colon. No acuteinflammation identified. PERITONEAL CAVITY: No free fluid or free air. BLADDER: Normal. REPRODUCTIVE ORGANS: No abnormalities. OSSEOUS STRUCTURES: There is an S-shaped rotoscoliosis of thethoracolumbar spine with multilevel severe degenerative disease.Laminectomies and instrumented fusions are noted in the lumbar spine. BODY WALL: No ventral hernia IMPRESSION: Retained colonic stool and rectal stool with diverticulosis coli. No free fluid or acute inflammation. Couple tiny stones in the right renal collecting system but there is nohydronephrosis. Dictated on: 02/13/2025 1:55 PM This report has been electronically signed and approved by theinterpreting Radiologist. Bia Cao MD IMG CT PROCEDURES Final Result * POCT Urinalysis dipstick (02/06/2025 3:12 PM EDT) Color, UA Yellow Clarity, UA Clear Glucose, UA Negative Negative - 1999(110) ++++ mg/dL Bilirubin, UA Negative Negative - 4(70) +++ mg/dL Ketones, UA Negative Negative - 160(16) ++++ mg/dL Spec Grav, UA 1.015 1 - 1.03 Blood, UA Negative Negative - 50 Darryl/mcL pH, UA 6.5 5 - 9 Protein, UA Negative Negative - 1999(20) ++++ mg/dL Urobilinogen, UA 1.0 0.2 - 12 mg/dL Leukocytes, UA Negative Negative - 500+++ Obdulio/mcL Nitrite, UA Negative Negative - Positive Urine 02/06/2025 3:12 PM EDT Bia Cao MD POINT OF CARE TEST ENTER/EDIT OR DERABLES Final Result from Last 3 Months Additional Health Concerns Active Problems Noted Date Diagnosed Date Patient on antidepressant monitoring plan 2023 Insurance AET MEDICARE ADVANTAGE Care Teams Assistant Professor Of Education Relationship Specialty Start Date End Date Bia Cao MD [address] [facility] [place] [address] PCP - General Family Medicine 04/29/23 Bia Cao MD [address] [place] [place] [id number] PCP - [employer] 11/22/21
--- OUTSIDE RECORDS SUMMARY | 2025-05-02 11:03 | XMS_ITS | Clinical Summary ---
Author Organization [facility] Address [address] [place] [address] Care Team Providers Care Furnace Utility Operator Name Role Phone (Hist), No Pcp Primary Care Provider Corey Messina MD Unavailable [phone] Allergies Active Allergy Reactions Criticality Noted Date Comments Adhesive Other: See Comments 11/04/2016 States causes blisters/even paper tape Amoxicillin-Pot Clavulanate Rash 08/14/2011 Aspartame Other: See Comments Low 02/12/2017 migraines Clavulanic Acid Rash Low 02/12/2017 Clemizole Rash Low 02/12/2017 Egg White Swelling 08/14/2011 Says about 1964? and only one arm affected. No rash, hives, or trouble breathing Influenza Virus Vaccines Swelling Medium 02/12/2017 Lincomycin Rash Low 11/04/2016 Lincosamides Anaphylaxis High 02/12/2017 Oxaprozin Rash Low 11/04/2016 Penicillins Rash Low 11/04/2016 Medications acetaminophen (TYLENOL) 500 mg tablet Take 500-1,000 mg by mouth three times daily as needed. Active PROAIR HFA 90 mcg/actuation inhaler as needed. 0 7 Active amitriptyline (ELAVIL) 100 mg tablet Take 100 mg by mouth daily at bedtime. Active atorvastatin (LIPITOR) 40 mg tablet Take 40 mg by mouth once daily. 7 Active carvedilol (COREG) 25 mg tablet Take 25 mg by mouth twice daily. 1 8 Active cholecalciferol (VITAMIN D3) 1,000 unit tab tablet 1,000 Units once daily. Active diclofenac, EC, (VOLTAREN) 75 mg EC tablet Take 75 mg by mouth twice daily as needed. Active escitalopram oxalate (LEXAPRO) 20 mg tablet Take 20 mg by mouth once daily. Active losartan-hydroch lorothiazide (HYZAAR) 100-25 mg per tablet Take 1 tablet by mouth once daily. 1 8 Active ezetimibe-simvas tatin 10-40 mg (VYTORIN) 10-40 mg per tablet Take by mouth. A ctive esomeprazole (NEXIUM) 40 mg capsule Take 40 mg by mouth. Active Fenofibrate (LOFIBRA) 160 mg tablet Take 160 mg by mouth once daily. Active fexofenadine (RALPH) 180 mg tablet Take 180 mg by mouth once daily. Active levothyroxine (SYNTHROID) 150 mcg tablet 1 tablet once daily. 0 8 Active meclizine (ANTIVERT) 25 mg tab Take 25 mg by mouth three times daily as needed. Active omeprazole (PRILOSEC) 20 mg capsule 20 mg once daily. 7 Active acetaminophen-di chloralphenazone -isometheptene (MIDRIN) 65-100-325 mg per capsule 1 capsule four times daily as needed. Active cyclobenzaprine (FLEXERIL) 5 mg tablet Take 10 mg by mouth three times daily as needed. Active verapamil SR (CALAN SR, ISOPTIN SR) 120 mg CR tablet 1 tablet three times daily. 8 Active zafirlukast (ACCOLATE) 20 mg tablet 1 tablet twice daily. 8 Active metoclopramide HCl (REGLAN) 10 mg tablet Take 10 mg by mouth every 6 hours as needed. Active magnesium gluconate (MAGONATE) 27 mg (500 mg) tab Take 500 mg by mouth once daily. Active multivitamin tablet Take 1 tablet by mouth once daily. Active calcium carbonate-vitami n D3 600 mg(1,500mg) -800 unit tab Take 1 tablet by mouth once daily. Active topiramate (TOPAMAX) 100 mg tablet 300 mg once daily. 100 mg in the A.M and 200 at bedtime 0 8 Active hydrALAZINE (APRESOLINE) 100 mg tablet take 1 tablet by mouth twice a day then MAY TAKE ADDITIONAL (50 M... (REFER TO PRESCRIPTION NOTES). Active lisinopril-hydro CHLOROthiazide (ZESTORETIC) 20-12.5 mg per tablet Take 1 tablet by mouth every morning. 3 Active oxybutynin ER (DITROPAN XL) 10 mg 24 hr tablet Take 10 mg by mouth. 0 Active ferrous sulfate 325 mg (65 mg iron) tablet Take 325 mg by mouth. 4 Active famotidine (PEPCID) 20 mg tablet Take 20 mg by mouth. 3 Active alendronate (FOSAMAX) 70 mg tablet Take 70 mg by mouth one time a week. 4 Active naproxen (NAPROSYN) 250 mg tablet Take by mouth as directed. Active therapeutic multivitamin (THERA VITAMIN) tablet Take 1 tablet by mouth. Active Active Problems Problem Noted Date Diagnosed Date Chronic midline low back pain with sciatica 06/2018 Social History Tobacco Use Types Packs/Day Years Used Date Smoking Tobacco: Never Smokeless Tobacco: Never Alcohol Use Standard Drinks/Week Comments No 0 (1 standard drink = 0.6 oz pur e alcohol) Area Deprivation Index Answer Date Bienvenido rded National Score (1-100), lower number is lower ri sk 92 04/04/2024 State Score (1-10), lower number is lower risk 9 04/04/2024 Data from: https://www.neighborhoodatlas.medicine.[facility].edu/. Last address used for calculation [address] 04/04/2024 Comments No Sex and Gender Information Value Date Recorded Sex Assigned at Not on file Legal Sex Female 8:38 AM EST Gender Identity Not on file Sexual Orientation Not on file Last Filed Vital Signs Vital Sign Reading Time Taken Comments Blood Pressure 143/81 09/26/2024 1:39 PM EST Pulse 91 09/26/2024 1:39 PM EST Temperature 36.5 C (97.7 F) 04/04/2024 11:29 AM EDT Respiratory Rate 18 04/04/2024 11:29 AM EDT Oxygen Saturation 96% 09/26/2024 1:39 PM EST Inhaled Oxygen Concentration - - Weight 67 kg (147 lb 11.3 oz) 09/26/2024 1:39 PM EST Height 160 cm (5' 3 ) 04/04/2024 11:29 AM EDT Body Mass Index 26.17 04/04/2024 11:29 AM EDT Plan of Treatment Health Maintenance Due Date Last Done Comments Anxiety Screening 1963 Depression Screening 1963 Shingrix Vaccine (1 of 2) 1995 11/22/2009 DTaP,Tdap,Td Vaccine (1 - Tdap) 08/22/2011 1 RSV Vaccine (1 - 1-dose 75+ series) 2020 Covid-19 Vaccine (3 - 2023-2 5 season) 2024 03/12/2021, 02/12/2021 Advance Directive Discussion 11/22/2024 Medicare Advantage Annual Wellness Visit 11/22/2024 Influenza Vaccine (Season Ended) 2025 09/17/2020, 08/30/2019, 08/29/2018, Additional history exists Diabetes Screening 02/10/2027 02/11/2024, 0 01/11/2024, 2023, Additional history exists Pneumococcal Vaccine: 50+ Completed 11/12/2020, Bone Density Screening Completed 12/03/2023 Mammogram Screening Discontinued 02/22/2024, 02/22/2024, 12/13/2020, Additional history exists [facility] Care Teams Furnace Utility Operator Relationship Specialty Start Date End Date (Hist), No Pcp PCP - General 11/04/17 Corey Chacon MD [facility] Referring Team Neurosurgery 03/24/24
--- OUTSIDE RECORDS SUMMARY | 2025-05-02 11:04 | XMS_ITS | Encounter Summary ---
Author Organization [facility] Address [address] [place] [address] Care Team Providers Care Float Builder Name Role Phone Bia Cao MD Primary Care Provider [phone] Bia Cao MD Unavailable Encounter Details Date Type Department Care Team (Late st Contact Info) Description 07/17/2024 Abstract [facility] [address] [facility] [place] [address] Bia Cao MD [address] [facility] [place] [address] Social History Tobacco Use Types [...] often do you attend chur ch or advent services? More than 4 times per year 04/02/2024 Do you belong to any clubs o r organizations such as taoist groups, unions, fraternal or athletic groups, or [...] Recorded Patient Health Questionnaire-2 Score 1 12/06/2023 [facility] - Occupational [...] EDT Office Visit [facility] [address] [facility] [place] [address] Bia Cao MD [address] [facility] [place] [address] documented as of this encounter Visit Diagnoses Not on filedocumented in this encounter Additional Health Concerns Assessment Noted Time PHQ-9 Depression Total Score: 7 12/06/19 24 2:00 PM EST documented as of this encounter Care Teams Float Builder Relationship Specialty Start Date End Date Bia Cao MD [address] [facility] [place] [address] PCP - General Family Medicine 04/29/23 Bia Cao MD [address] [facility] [place] [address] PCP - [employer] 11/22/21 documented as of this encounter
--- OUTSIDE RECORDS SUMMARY | 2025-05-02 11:04 | XMS_ITS | Clinical Summary ---
Author Organization [facility] Address [address] [place] [address] Care Team Providers Care Doll Wig Maker Name Role Phone Bia Cao MD Primary Care Provider Allergies Active Allergy Reactions Criticality Noted Date Comments Amoxicillin-Pot Clavulanate 08/14/20 11 Egg White Swelling 08/14/2011 Says about 1964? and only one arm affected. No rash, hives, or trouble breathing Lincomycin Hcl 08/14/2011 Other/Food 05/06/2018 FLU VACCINE, egg prep Penicillins 08/14/2011 Adhesive Tape 08/14/2011 Medications zafirlukast (ACCOLATE) 20 MG tabletIndicatio ns:Asthma Take 20 mg by mouth daily. Indications: Asthma Active levothyroxine (SYNTHROID) 175 MCG tabletIndicatio ns:Hypothyroidi sm Take 150 mcg by mouth daily Indications: Underactive Thyroid Activ e losartan (COZAAR) 100 MG tabletIndicatio ns:Hypertension Take 50 mg by mouth daily Indications: High Blood Pressure Activ e esomeprazole (NEXIUM) 40 MG capsuleIndicati ons:Gastroesoph ageal Reflux Disease Take 40 mg by mouth every morning (before breakfast). Indications: Gastroesophageal Reflux Disease Active verapamil (CALAN-SR) 240 MG CR tabletIndicatio ns:Hypertension Take 120 mg by mouth every 8 hours Indications: High Blood Pressure Active propranolol (INDERAL) 20 MG tabletIndicatio ns:Migraine Prophylaxis Take 20 mg by mouth 2 times daily. Indications: Treatment to Prevent Migraine Headaches Active fexofenadine (RALPH ALLERGY) 180 MG tabletIndicatio ns:Seasonal Allergy Take 180 mg by mouth daily as needed Active escitalopram (LEXAPRO) 20 MG tabletIndicatio ns:Depression Take 20 mg by mouth daily Takes in afternoon Active fenofibrate (TRIGLIDE) 160 MG tabletIndicatio ns:Hyperlipidem ia Take 160 mg by mouth daily. Indications: High Amount of Fats in the Blood Active aspirin 81 MG tablet Take 81 mg by mouth daily. Active Multiple Vitamin (MULTIVITAMIN PO) Take by mouth daily. Active Calcium Carbonate-Vitam in D (CALCIUM 600+D PO)Indications: Osteoporosis Prophylaxis Take 600 mg by mouth daily. Indications: Treatment to Prevent Osteoporosis Active amitriptyline (ELAVIL) 100 MG tabletIndicatio ns:Migraine Prophylaxis Take 50 mg by mouth nightly Indications: Treatment to Prevent Migraine Headaches Active acetaminophen (TYLENOL) 500 MG tablet Take 500-1,000 mg by mouth every 6 hours as needed. Active Ipratropium-Alb uterol (COMBIVENT IN)Indications: Asthma Inhale 2 puffs into the lungs 4 times daily as needed. Indications: Asthma Activ e Topiramate (TOPAMAX PO) Take 100 mg by mouth daily Active vitamin D 1000 UNITS CAPS Take by mouth Activ e magnesium gluconate (MAGONATE) 500 MG tablet Take 500 mg by mouth 2 times daily Active meclizine (ANTIVERT) 25 MG tablet Take 25 mg by mouth 3 times daily as needed Active albuterol sulfate HFA 108 (90 BASE) MCG/ACT inhaler Inhale 2 puffs into the lungs every 6 hours as needed for Wheezing Active metoclopramide (REGLAN) 10 MG tablet Take 10 mg by mouth as needed Active DICLOFENAC PO Take 75 mg by mouth daily as needed When gets migraines Active Aspirin-Acetami nophen-Caffeine (EXCEDRIN MIGRAINE PO) Take by mouth Act dalia predniSONE (DELTASONE) 5 MG tablet Take 5 mg by mouth daily as needed Active predniSONE (DELTASONE) 20 MG tablet Take 20 mg by mouth daily as needed as directed per PCP today. Active topiramate (TOPAMAX) 200 MG tablet Take 200 mg by mouth nightly Active atorvastatin (LIPITOR) 40 MG tablet Take 40 mg by mouth daily Active carvedilol (COREG) 25 MG tablet Take 25 mg by mouth 2 times daily (with meals) Active amLODIPine (NORVASC) 2.5 MG tablet Take 2.5 mg by mouth daily Active gabapentin (NEURONTIN) 300 MG capsule Take 300 mg by mouth 3 times daily. Active meloxicam (MOBIC) 15 MG tablet Take 15 mg by mouth daily Active Active Problems Problem Noted Date Diagnosed Date Primary osteoarthritis of right knee 09/17/2021 Midline low back pain with right-sided sciatica 01/02/2016 DDD (degenerative disc disease), lumbar 08/14/20 11 Overview (08/14/2011): L3-4, L4-5 Lumbar spinal stenosis 08/14/2011 Left Radicular leg pain 08/14/2011 Impingement syndrome of right shoulder 1 Family History Medical History Relation Name Comments COPD Father Heart Disease Maternal Grandfather Cancer Maternal Grandmother breast cancer Cancer Mother rectal cancer Tuberculosis Mother Diabetes Paternal Grandmother Relation Name Status Comments Father Maternal Grandfather Maternal Grandmother Mother Paternal Grandmother Social History Tobacco Use Types Packs/Day Years Used Date Smoking Tobacco: Never Smokeless Tobacco: Never Tobacco Cessation:Counseling Given: Not Answered Alcohol Use Standard Drinks/Week Comments No 0 (1 standard drink = 0.6 oz pur e alcohol) Comments No Sex and Gender Information Value Date Recorded Sex Assigned at Not on file Legal Sex Female 5:24 PM EST Gender Identity Not on file Sexual Orientation Not on file Last Filed Vital Signs Vital Sign Reading Time Taken Comments Blood Pressure 134/84 05/16/2018 1:15 PM EDT Pulse 72 05/16/2018 1:15 PM EDT Temperature 36.4 C (97.6 F) 05/16/2018 12:40 PM EDT Respiratory Rate 14 10/12/2022 1:21 PM EST Oxygen Saturation 93% 05/16/2018 12:40 PM EDT Inhaled Oxygen Concentration - - Weight 72.6 kg (160 lb) 04/12/2023 2:44 PM EDT Height 157.5 cm (5' 2 ) 04/12/2023 2:44 PM EDT Body Mass Index 29.26 04/12/2023 2:44 PM EDT Plan of Treatment Health Maintenance Due Date Last Done Comments Lipids 1955 Depression Screen 1957 Hepatitis C screen 1963 DEXA (modify frequency per FRAX score) 2000 Shingles vaccine (2 of 3) 01/17/2010 11/22/2009 DTaP/Tdap/Td vaccine (1 - Tdap) 08/22/2011 08/21/2011 Respiratory Syncytial Virus (RSV) or age 60 yrs+ (1 - 1-dose 75+ series) 2020 COVID-19 Vaccine (4 - season) 2024 03/12/2021, 03/11/2021, 02/12/2021 Annual Wellness Visit (Medicare Advantage) 11/22/2024 Flu vaccine (Season Ended) 06/22/202509/18, 09/17/2020, 08/30/2019, Additional history exists Colonoscopy Discontinued 07/07/2018 Pneumococcal 50+ years Vaccine Completed 11/12/2020, 08/13/2015 Hepatitis A vaccine Aged Out No longe r eligible based on patient's age to complete this topic Hepatitis B vaccine Aged Out No longe r eligible based on patient's age to complete this topic Hib vaccine Aged Out No longer eligi ble based on patient's age to complete this topic Meningococcal (ACWY) vaccine Aged Out No longer eligible based on patient's age to complete this topic Meningococcal B vaccine Aged Out No l onger eligible based on patient's age to complete this topic Polio vaccine Aged Out No longer elig ible based on patient's age to complete this topic Procedures Procedure Name Priority Date/Time Associated Diagnosis Comments COLONOSCOPY Routine 07/07/2018 from Last 3 Months or Most Recently Relevant to Health Maintenance Results * COLONOSCOPY (07/07/2018) Historical Provider HEALTH MAINTENANCE Final Result from Last 3 Months or Most Recently Relevant to Health Maintenance Insurance [employer] MEDICARE Care Teams Doll Wig Maker Relationship Specialty Start Date End Date Bia Cao MD [address] [address] PCP - General 06/16/19
--- OUTSIDE RECORDS SUMMARY | 2025-05-02 11:04 | XMS_ITS | Encounter Summary ---
Author Organization [facility] Address [address] [place] [address] Care Team Providers Care Forging Machine Hand Name Role Phone Bia Cao MD Primary Care Provider [phone] Bia Cao MD Unavailable Encounter Details Date Type Department Care Team ([facility] Contact Info) Description 05/11/2023 Abstract [facility] [address] [facility] [place] [place] [address] Bia Cao MD [address] [facility] [place] [place] [address] Social History Tobacco Use Types Packs/Day Years Used Date Smoking Tobacco: Never Alcohol Use Standard Drinks/Week Comments Yes 0 (1 standard drink = 0.6 oz pur e alcohol) caffeine: occasional Comments Unknown Sex and Gender Information Value Date Recorded Sex Assigned at Not on file Legal Sex Female 7:26 PM EDT Gender Identity Not on file Sexual Orientation Not on file documented as of this encounter Plan of Treatment Upcoming Encounters Date Type Department Care Team ([facility] Contact Info) Description 07/10/2025 1:00 PM EDT Office Visit [facility] [address] [facility] [place] [place] [address] Bia Cao MD [address] [facility] [place] [place] [address] documented as of this encounter Visit Diagnoses Not on filedocumented in this encounter Care Teams Forging Machine Hand Relationship Specialty Start Date End Date Bia Cao MD [address] [place] [address] PCP - General Family Medicine 04/29/23 Bia Cao MD [address] [place] [address] [address] PCP - [employer] 11/22/21 documented as of this encounter
--- OUTSIDE RECORDS SUMMARY | 2025-05-02 11:04 | XMS_ITS | Encounter Summary ---
Author Organization [facility] Address [address] [place] [address] Care Team Providers Care Brand Marketing Coordinator Name Role Phone Bia Cao MD Primary Care Provider [phone] Bia Cao MD Unavailable Reason for Visit * Reason Comments Med Refill Encounter Details Date Type Department Care Team (Late st Contact Info) Description 04/22/2023 Refill [facility] [address] [facility] [place] [address] Bia Cao MD [address] [facility] [place] [address] Hypertension, unspecified type (CMS/HCC) (Primary Dx) Social History Tobacco Use Types Packs/Day Years Used Date Smoking Tobacco: Never Assessed Comments Unknown Sex and Gender Information Value Date Recorded Sex Assigned at Not on file Legal Sex Female 7:26 PM EDT Gender Identity Not on file Sexual Orientation Not on file documented as of this encounter Miscellaneous Notes * Telephone Encounter - Bia Cao MD - 04/23/2023 9:51 AM EDT Approvals with refills documented in this encounter Plan of Treatment Upcoming Encounters Date Type Department Care Team (Late st Contact Info) Description 07/10/2025 1:00 PM EDT Office Visit [facility] [address] [facility] [place] [address] Bia Cao MD [address] [facility] [place] [address] documented as of this encounter Visit Diagnoses Diagnosis Hypertension, unspecified type (CMS/HCC)- Primary documented in this encounter Care Teams Brand Marketing Coordinator Relationship Specialty Start Date End Date Bia Cao MD [address] [facility] [place] [address] PCP - General Family Medicine 04/29/23 Bia Cao MD [address] [facility] [place] [address] PCP - [employer] 11/22/21 documented as of this encounter
--- OUTSIDE RECORDS SUMMARY | 2025-05-02 11:04 | XMS_ITS | Encounter Summary ---
Author Organization [facility] Address [address] [place] [address] Care Team Providers Care Technology Lab Teacher Name Role Phone Bia Cao MD Primary Care Provider [phone] Bia Cao MD Unavailable Encounter Details Date Type Department Care Team (Late Contact Info) Description 04/26/2023 Abstract [facility] [address] [facility] [place] [address] Bia Cao MD [address] [facility] [address] [place], [place] [id number] Social History Tobacco Use Types Packs/Day Years [...] PM EDT Office Visit [facility] [address] [facility] [address] [facility] [address] Bia Cao MD [address] [facility] [address] [place], [place] [id number] documented as of this encounter Visit Diagnoses Not on filedocumented in this encounter Care Teams Technology Lab Teacher Relationship Specialty Start Date End Date Bia Cao MD [address] [facility] [address] [place], [place] [id number] PCP - General Family Medicine 04/29/23 Bia Cao MD [address] [place] [address] PCP - [employer] 11/22/21 documented as of this encounter
--- OUTSIDE RECORDS SUMMARY | 2025-05-02 11:04 | XMS_ITS | Encounter Summary ---
Author Organization [facility] Address [address] [place] [address] Care Team Providers Care Carbon Grinder Name Role Phone Bia Cao MD Primary Care Provider [phone] Bia Cao MD Unavailable Encounter Details Date Type Department Care Team (Late st Contact Info) Description 04/12/2023 Clinisync Result Encounter [facility] External Department Unsolicited Bia Cao MD [address] [place] [address] Social History Tobacco Use Types [...] PM EDT Office Visit [facility] [address] [place] [address] Bia Cao MD [address] [place], [place] [id number] documented as of this encounter Procedures Procedure Name Priority Date/Time Associated Diagnosis Comments XR KNEE RIGHT (1-2 VIEWS) 04/12/2023 2:53 PM EDT documented in this encounter Results * XR KNEE RIGHT (1-2 VIEWS) (04/12/2023 2:53 PM EDT) Anatomical Region Laterality Modality Other 04/12/2023 2:53 PM EDT Narrative 05/07/2023 4:14 PM EDT X-rays taken today reviewed by me show standing AP of both knees. Patient has fairly significant medial joint space narrowing the right knee given overall varus disposition. She has slight element osteoporosis she has minimal peripheral spur formation otherwise no other acute process is noted. Patient's left knee is not nearly involved Interpreted by: Guilherme Montanez MD Signed by: Guilherme Montanez MD 04/12/23 Final result Procedure Note Radiology, Radiologist, MD - 05/07/2023 X-rays taken today reviewed by me show standing AP of both knees. Patienthas fairly significant medial joint space narrowing the right knee givenoverall varus disposition. She has slight element osteoporosis she hasminimal peripheral spur formation otherwise no other acute process is noted. Patient's left knee is notnearly involved Interpreted by: Guilherme Montanez MD Signed by: Guilherme Montanez MD 04/12/23 Final result Bia Cao MD [facility] Final Result documented in this encounter Visit Diagnoses Not on filedocumented in this encounter Care Teams Carbon Grinder Relationship Specialty Start Date End Date Bia Cao MD [address] [facility] [place] [address] PCP - General Family Medicine 04/29/23 Bia Cao MD [address] [facility] [place] [address] PCP - [employer] 11/22/21 documented as of this encounter
--- NOTE | 2025-05-02 11:25 | PM.CN ---
Consult Note: HPI Data of Consult Patient: known to practice within the last 3 years Requesting Physician: Nisa Galarza NP Primary Care Provider: TRUE DAVIS Consult Narrative Reason for consult: f/u Narrative: Angela Ruth a 80 year old female presents for evaluation of chronic back pain unresponsive to greater than 6 weeks of PT/HEP, ice, heat, tylenol and NSAIDs. pain secondary to lumbar DDD, lumbar spondylosis, sacroilitis. Hx of lumbar surgery. utilizing Tylenol, aleve, butrans and methocarbamol with benefit without side effects. denies recent falls. Pain today 5/10 aching in middle back and left low back. pain increases to 8/10 with standing, walking, twisting, showering, sleeping. denies falls since last visit. cc:: CC: Nisa Galarza NP Review of Systems ROS Status of ROS 10 or more systems reviewed and unremarkable except as noted in history and below Musculoskeletal Reports: back pain, extremity pain and joint pain PFSH PFSH Medical History TMJ (dislocation of temporomandibular joint) ?S03.00XA - Dislocation of jaw, unspecified side, initial encounter (ICD-10) Neck pain ?M54.2 - Cervicalgia (ICD-10) Back pain ?M54.9 - Dorsalgia, unspecified (ICD-10) Osteoarthritis ?M19.90 - Unspecified osteoarthritis, unspecified site (ICD-10) H/O psychiatric care ?Z92.89 - Personal history of other medical treatment (ICD-10) Heartburn ?R12 - Heartburn (ICD-10) Acid reflux ?K21.9 - Gastro-esophageal reflux disease without esophagitis (ICD-10) Hypothyroid ?E03.9 - Hypothyroidism, unspecified (ICD-10) Kidney stones ?N20.0 - Calculus of kidney (ICD-10) Asthma ?J45.909 - Unspecified asthma, uncomplicated (ICD-10) High cholesterol ?E78.00 - Pure hypercholesterolemia, unspecified (ICD-10) Hypertension ?I10 - Essential (primary) hypertension (ICD-10) Surgical History H/O shoulder surgery ?Z98.890 - Other specified postprocedural states (ICD-10) H/O excision of hemangioma ?Z98.890 - Other specified postprocedural states (ICD-10) ?Z86.018 - Personal history of other benign neoplasm (ICD-10) H/O basal cell carcinoma excision ?Z98.890 - Other specified postprocedural states (ICD-10) ?Z85.828 - Personal history of other malignant neoplasm of skin (ICD-10) H/O lumbosacral spine surgery ?Z98.890 - Other specified postprocedural states (ICD-10) H/O foot surgery ?Z98.890 - Other specified postprocedural states (ICD-10) H/O hand surgery ?Z98.890 - Other specified postprocedural states (ICD-10) H/O wrist surgery ?Z98.890 - Other specified postprocedural states (ICD-10) History of cholecystectomy ?Z90.49 - Acquired absence of other specified parts of digestive tract (ICD-10) H/O breast biopsy ?Z98.890 - Other specified postprocedural states (ICD-10) History of appendectomy ?Z90.49 - Acquired absence of other specified parts of digestive tract (ICD-10) History of tonsillectomy and adenoidectomy ?Z90.89 - Acquired absence of other organs (ICD-10) Meds Home Medications and Allergies Home Medications ?Medication ?Instructions ?Recorded ?Confirmed ?Type acetaminophen 650 mg 1,300 mg PO Q8H PRN pain 07/07/23 04/23/25 History tablet,extended release (Arthritis Pain Relief (acetaminophen) ER) albuterol 90 mcg/actuation aerosol 90 mcg inhalation .every 4 hours 07/07/23 04/23/25 History inhaler PRN shortness of breath or wheezing ascorbic acid (vitamin C) 500 mg 500 mg PO BID 07/07/23 04/23/25 History tablet,extended release (C Complex) aspirin 81 mg tablet,delayed 81 mg PO DAILY 07/07/23 04/23/25 History release (Adult Aspirin Regimen) atorvastatin 40 mg tablet 40 mg PO DAILY 07/07/23 04/23/25 History calcium carbonate (Calcium 600) 600 mg PO DAILY 07/07/23 04/23/25 History carvedilol 25 mg tablet 25 mg PO BID 07/07/23 04/23/25 History cholecalciferol (vitamin D3) 50 200 mcg PO DAILY 07/07/23 04/23/25 History mcg (2,000 unit) tablet (Vitamin D3) escitalopram oxalate 20 mg tablet 20 mg PO DAILY 07/07/23 04/23/25 History fenofibrate 160 mg tablet 160 mg PO DAILY 07/07/23 04/23/25 History fexofenadine 180 mg tablet 180 mg PO DAILY 07/07/23 04/23/25 History hydralazine 100 mg tablet 100 mg PO TID 07/07/23 04/23/25 History levothyroxine 150 mcg capsule 150 mcg PO DAILY 07/07/23 04/23/25 History lisinopril 20 1 tab PO DAILY 07/07/23 04/23/25 History mg-hydrochlorothiazide 12.5 mg tablet magnesium 250 mg tablet 250 mg PO DAILY 07/07/23 04/23/25 History lvdbglcf-vmx-rtnkn acid 0.4 1 tab PO DAILY 07/07/23 04/23/25 History mg-lycopene 300 mcg-lutein 250 mcg tablet (Centrum Silver) omeprazole 40 mg capsule,delayed 40 mg PO DAILY 07/07/23 04/23/25 History release oxybutynin chloride 10 mg 10 mg PO DAILY 07/07/23 04/23/25 History tablet,extended release 24 hr buprenorphine 7.5 mcg/hour weekly 1 patch transdermal Q7D PRN pain 11/02/24 04/23/25 Rx transdermal patch (Butrans) #4 ea methocarbamol 500 mg tablet See Rx Instructions .Route 12/07/24 04/23/25 Rx .COMPLEX PRN spasms #120 tabs buprenorphine 7.5 mcg/hour weekly 1 patch transdermal Q7D #4 ea 01/03/25 04/23/25 Rx transdermal patch (Butrans) buprenorphine 7.5 mcg/hour weekly 1 patch transdermal Q7D #4 ea 02/01/25 04/23/25 Rx transdermal patch (Butrans) methocarbamol 500 mg tablet See Rx Instructions .Route 02/01/25 04/23/25 Rx .COMPLEX PRN spasms #120 tabs buprenorphine 7.5 mcg/hour weekly 1 patch transdermal Q7D #4 ea 03/09/25 04/23/25 Rx transdermal patch (Butrans) buprenorphine 7.5 mcg/hour weekly 1 patch transdermal Q7D #4 ea 04/04/25 04/23/25 Rx transdermal patch (Butrans) methocarbamol 500 mg tablet See Rx Instructions .Route 04/04/25 04/23/25 Rx .COMPLEX #120 tabs romosozumab-aqqg 210 mg/2.34 mg subcut 04/23/25 History mL(105 mg/1.17 mL x2)subcutaneous syringe (Evenity) Allergies Allergy/AdvReac Type Severity Reaction Status Date / Time adhesive tape Allergy unknown Verified 04/23/25 10:38 Influenza Virus Vaccines Allergy unknown Verified 04/23/25 10:38 lincomycin (From Lincocin) Allergy Unknown Verified 04/23/25 10:38 Penicillins Allergy Unknown Verified 04/23/25 10:38 Exam Constitutional Documenting provider has reviewed patient's vital signs: yes Common normals: no apparent distress, oriented x3, healthy appearing, alert and well nourished General appearance: cooperative HENMT Common normals: normocephalic, hearing grossly normal bilaterally and moist oral mucous membranes Head and scalp: normocephalic Eye Common normals: PERRL Pupil: PERRL Neck & C-Spine Common normals: full ROM General: normal visual inspection Other: negative facet loading, negative spurlings, strength 5/5 in BUE Chest Common normals: inspection of chest normal Respiratory Common normals: normal respiratory effort, no retractions and no use of accessory muscles Back & Pelvis Lumbar spine/lower back: ROM limited, pain with ROM and straight leg raise negative bilaterally Sacroiliac joints: SI joint(s) abnormal Other: right SIJ positive eri(patricks), gaenslens, thigh thrust, compression test Extremity Other: no pain with internal and external log roll of right hip Neuro Common normals: oriented x3 Sensorium/orientation: alert Gait (neuro): assistive device used cane Motor exam: no movement abnormalities noted Psych Common normals: mental status grossly normal, thought process normal, cooperative, affect normal, speech normal and activity/motor behavior normal Speech: normal speech Thought process: normal thought process Results Additional Findings Additional findings: If on a controlled substance or opioids, I have checked an [place] report on this patient and there are no aberrancies noted in the prescribing history.??If on a controlled substance or opioid a drug screen was completed and reviewed within the last year, and if there has not been a drug screen completed we ordered one today to monitor higher risk, state monitored pain medication use. As part of providing excellent, safe, comprehensive care, the following was completed at our patient's visit: 1. A medication reconciliation and review to ensure accurate knowledge of current/active medications, including asking our patients to inform us about any uxiv-yyn-tteljek medications or herbal remedies/nutritional supplements/alternative remedies. 2. A review to specifically ensure our patients have had annual screening for screening for depression, screening for tobacco use, and screening for unhealthy alcohol use. For concerning screenings had a discussion with the patient, provided patient education, and recommended follow-up with primary care provider when appropriate. If patient noted with a risk of falling, they received education on strength, gait, and balance training to prevent future risk of falling. Portions of this note may have been carried over from the previous visit and updated as appropriate. Please note this office utilizes paper charting in addition to the electronic medical record. A list of current medications, vitals, and PMH is available there as the clinical staff outside of myself do not have access to [employer] charting during the clinic day operations. As part of providing quality comprehensive care the current medications, vitals, and PMH were reviewed in the paper chart. Assessment and Plan Assessment and Plan (1) Sacroiliitis: Assessment and Plan: The patient has had over 3 months of moderate to severe left SIJ pain with functional impairment and inadequate response to conservative care including NSAIDS (unless there are contraindication such as concurrent blood thinners), multiple oral or topical pain medications, and home exercise program/physical therapy.? Patient has completed >6 weeks of guided home exercise program and/or formal physical therapy program without relief of their symptoms.? The Oswestry Disability Index was completed, and the patient scored a 36%.? The patient noted the following:?? moderate to severe pain with ADLs, sitting, standing, walking, social life, travel, and sleep We discussed the risks and benefits of the procedure with the patient, and we are NOT planning on using sedation as outlined in the guidelines from Medicare unless there is a documented reason that sedation would be strongly recommended.??The procedure will be completed with fluoroscopic guidance.? (2) Lumbar radiculopathy: (3) Lumbar stenosis with neurogenic claudication: (4) Myofascial pain: (5) Chronic prescription opiate use: Assessment and Plan: I feel these medications are improving the patient's quality of life and allow them to tolerate activities of daily living as well as participate in recreational activity.? The patient does not report intolerable side effects. The patient is NOT opioid naive and non-pharmacologic and non-opioid treatment has failed to significantly relieve the patient's pain and improve functionality. The patient has a diagnosis that is related to a somatic or visceral pain etiology. ? ?? I reviewed with the patient the potential risks and side effects with the use of? opioid medications including but not limited to respiratory depression,? sedation, and even . I advised the patient to avoid the use of any other? sedation substances including alcohol, THC, and benzodiazepines while? taking opioid medications due to the risk of compounding side effects and? detrimental outcomes. within the last 12 months I have reviewed the [employer], pain treatment agreement and urine drug screen.? ?? A drug screen was completed within the last year, and no aberrancies were noted regarding their use of controlled substances. The patient understands they are subject to the terms and conditions of the pain contract that they have signed. ? ?? I have checked an [place] report on this patient today and there are no aberrancies noted in the prescribing history.? (6) Lumbar postlaminectomy syndrome: Plan left SIJ injection declining spinal cord stimulator trial at this time continue current medications, risks vs benefits reviewed continue HEP as tolerated, continue to utilize cane f/u 2 weeks after injection
== END 2025-05-02 11:02 | disposition home or self-care (01) ==
PROVIDERS: PCP Family Medicine; Visit Provider Nurse Practitioner
DX: M46.1 Sacroiliitis, not elsewhere classified (principal); M54.16 Radiculopathy, lumbar region; M48.062 Spinal stenosis, lumbar region with neurogenic claudication; M79.18 Myalgia, other site; Z79.891 Long term (current) use of opiate analgesic; M96.1 Postlaminectomy syndrome, not elsewhere classified
CPT/HCPCS: G0463

== ENCOUNTER 2025-05-14 11:19 | Day surgery (SDC) | payer MEDICARE, SELFPAY ==
[2025-05-14 11:26] VITALS: BP 111/55; PULSE 82; TEMP 36.5; O2SAT 96
[2025-05-14 12:00] VITALS: BP 126/58; PULSE 83; PULSE 86; O2SAT 95; O2SAT 96
[2025-05-14] MEDS: METHYLPREDNISOLONE ACETATE 40 MG/ML VIAL INJ (12:00)
[2025-05-14] MEDS: IOHEXOL 240 MG/ML - 10 ML VIAL INJ (12:00)
[2025-05-14] MEDS: BUPIVACAINE HCL 0.25% PF 25 MG/10 ML VIAL 2 ML INJ (12:00)
--- NOTE | 2025-05-14 12:00 | W.PM.PROCNOT ---
Date of procedure: 05/14/25 Pre-op diagnosis: Pain due to left sacroiliitis Post-op diagnosis: same as pre-op Procedure: Procedure: Left sacroiliac joint injection Medications: Bupivacaine 0.25% 3cc, depomedrol 40mg After informed consent was obtained, the patient was brought to the medical procedure unit and placed in the prone position, when a timeout was completed verifying correct patient, procedure, site, positioning, implant, and/or special equipment.? The skin overlying the area was prepped and draped in standard sterile fashion using alcohol.? A 25-gauge needle was inserted towards the left sacroiliac joint under direct fluoroscopic imaging.? Needle tip was advanced until the joint was encountered.? We instilled a total of 2 mL of solution.? Postoperatively needles were removed.? The patient tolerated the procedure well without complication.? The patient reported reduction in pain symptoms postoperatively. Anesthesia: Local Surgeon: Adelfo Hansen Pathology: none sent Condition: stable Disposition: no change
[2025-05-14] MEDS: LIDOCAINE HCL 2% 400 MG/20 ML MDV INJ (12:01)
[2025-05-14 12:02] VITALS: BP 133/62
== END 2025-05-14 12:05 | disposition home or self-care (01) ==
LOC: SURGOUT 11:20
PROVIDERS: PCP Family Medicine; Visit Provider Anesthesiology
DX: M46.1 Sacroiliitis, not elsewhere classified (principal); M53.3 Sacrococcygeal disorders, not elsewhere classified
CPT/HCPCS: 27096; J0665; J1010; Q9966

== ENCOUNTER 2025-05-24 10:59 | Outpatient (OUT) | payer MEDICARE, SELFPAY ==
--- NOTE | 2025-05-24 11:18 | PM.CN ---
Consult Note: HPI Data of Consult Patient: known to practice within the last 3 years Requesting Physician: Nisa Galarza NP Primary Care Provider: TRUE DAVIS Consult Narrative Reason for consult: f/u Narrative: Angela Ruth a 80 year old female presents for evaluation of chronic back pain unresponsive to greater than 6 weeks of PT/HEP, ice, heat, tylenol and NSAIDs. pain secondary to lumbar DDD, lumbar spondylosis, sacroilitis. Hx of lumbar surgery. utilizing Tylenol, aleve, butrans and methocarbamol with benefit without side effects. denies recent falls. Pain today 7/10 aching in middle back. pain increases to 8/10 with standing, walking, twisting, showering, sleeping. denies falls since last visit. recently underwent left SIJ injection with significant ongoing relief. prior thoracic xray shows degnerative changes. cc:: CC: Nisa Galarza NP [facility] Medical History TMJ (dislocation of temporomandibular joint) �S03.00XA - Dislocation of jaw, unspecified side, initial encounter (ICD-10) Neck pain �M54.2 - Cervicalgia (ICD-10) Back pain �M54.9 - Dorsalgia, unspecified (ICD-10) Osteoarthritis �M19.90 - Unspecified osteoarthritis, unspecified site (ICD-10) H/O psychiatric care �Z92.89 - Personal history of other medical treatment (ICD-10) Heartburn �R12 - Heartburn (ICD-10) Acid reflux �K21.9 - Gastro-esophageal reflux disease without esophagitis (ICD-10) Hypothyroid �E03.9 - Hypothyroidism, unspecified (ICD-10) Kidney stones �N20.0 - Calculus of kidney (ICD-10) Asthma �J45.909 - Unspecified asthma, uncomplicated (ICD-10) High cholesterol �E78.00 - Pure hypercholesterolemia, unspecified (ICD-10) Hypertension �I10 - Essential (primary) hypertension (ICD-10) Surgical History H/O shoulder surgery �Z98.890 - Other specified postprocedural states (ICD-10) H/O excision of hemangioma �Z98.890 - Other specified postprocedural states (ICD-10) �Z86.018 - Personal history of other benign neoplasm (ICD-10) H/O basal cell carcinoma excision �Z98.890 - Other specified postprocedural states (ICD-10) �Z85.828 - Personal history of other malignant neoplasm of skin (ICD-10) H/O lumbosacral spine surgery �Z98.890 - Other specified postprocedural states (ICD-10) H/O foot surgery �Z98.890 - Other specified postprocedural states (ICD-10) H/O hand surgery �Z98.890 - Other specified postprocedural states (ICD-10) H/O wrist surgery �Z98.890 - Other specified postprocedural states (ICD-10) History of cholecystectomy �Z90.49 - Acquired absence of other specified parts of digestive tract (ICD-10) H/O breast biopsy �Z98.890 - Other specified postprocedural states (ICD-10) History of appendectomy �Z90.49 - Acquired absence of other specified parts of digestive tract (ICD-10) History of tonsillectomy and adenoidectomy �Z90.89 - Acquired absence of other organs (ICD-10) Meds Home Medications and Allergies Home Medications �Medication �Instructions �Recorded �Confirmed �Type acetaminophen 650 mg 1,300 mg PO Q8H PRN pain 07/07/23 05/14/25 History tablet,extended release (Arthritis Pain Relief (acetaminophen) ER) albuterol 90 mcg/actuation aerosol 90 mcg inhalation .every 4 hours 07/07/23 05/14/25 History inhaler PRN shortness of breath or wheezing ascorbic acid (vitamin C) 500 mg 500 mg PO BID 07/07/23 05/14/25 History tablet,extended release (C Complex) aspirin 81 mg tablet,delayed 81 mg PO DAILY 07/07/23 05/14/25 History release (Adult Aspirin Regimen) atorvastatin 40 mg tablet 40 mg PO DAILY 07/07/23 05/14/25 History calcium carbonate (Calcium 600) 600 mg PO DAILY 07/07/23 05/14/25 History carvedilol 25 mg tablet 25 mg PO BID 07/07/23 05/14/25 History cholecalciferol (vitamin D3) 50 200 mcg PO DAILY 07/07/23 05/14/25 History mcg (2,000 unit) tablet (Vitamin D3) escitalopram oxalate 20 mg tablet 20 mg PO DAILY 07/07/23 05/14/25 History fenofibrate 160 mg tablet 160 mg PO DAILY 07/07/23 05/14/25 History fexofenadine 180 mg tablet 180 mg PO DAILY 07/07/23 05/14/25 History hydralazine 100 mg tablet 100 mg PO TID 07/07/23 05/14/25 History levothyroxine 150 mcg capsule 150 mcg PO DAILY 07/07/23 05/14/25 History lisinopril 20 1 tab PO DAILY 07/07/23 05/14/25 History mg-hydrochlorothiazide 12.5 mg tablet magnesium 250 mg tablet 250 mg PO DAILY 07/07/23 05/14/25 History gdqavwfo-ozy-volmz acid 0.4 1 tab PO DAILY 07/07/23 05/14/25 History mg-lycopene 300 mcg-lutein 250 mcg tablet (Centrum Silver) omeprazole 40 mg capsule,delayed 40 mg PO DAILY 07/07/23 05/14/25 History release oxybutynin chloride 10 mg 10 mg PO DAILY 07/07/23 05/14/25 History tablet,extended release 24 hr buprenorphine 7.5 mcg/hour weekly 1 patch transdermal Q7D #4 ea 01/03/25 05/14/25 Rx transdermal patch (Butrans) methocarbamol 500 mg tablet See Rx Instructions .Route 04/04/25 05/14/25 Rx .COMPLEX #120 tabs romosozumab-aqqg 210 mg/2.34 mg subcut 04/23/25 History mL(105 mg/1.17 mL x2)subcutaneous syringe (Evenity) Allergies Allergy/AdvReac Type Severity Reaction Status Date / Time adhesive tape Allergy unknown Verified 05/14/25 11:39 Influenza Virus Vaccines Allergy unknown Verified 05/14/25 11:39 lincomycin (From Lincocin) Allergy Unknown Verified 05/14/25 11:39 Penicillins Allergy Unknown Verified 05/14/25 11:39 Exam Constitutional Documenting provider has reviewed patient's vital signs: yes Common normals: no apparent distress, oriented x3, healthy appearing, alert and well nourished General appearance: cooperative HENMT Common normals: normocephalic, hearing grossly normal bilaterally and moist oral mucous membranes Head and scalp: normocephalic Eye Common normals: PERRL Pupil: PERRL Neck & C-Spine Common normals: full ROM General: normal visual inspection Other: negative facet loading, negative spurlings, strength 5/5 in BUE Chest Common normals: inspection of chest normal Respiratory Common normals: normal respiratory effort, no retractions and no use of accessory muscles Back & Pelvis Thoracic spine/upper back: ROM limited, pain with ROM and thoracic spinal tenderness T-spine tenderness location: T7, T8, T9 and T10 Lumbar spine/lower back: ROM limited, pain with ROM and straight leg raise negative bilaterally Sacroiliac joints: SI joints normal Other: bilaterally negative eri(patricks), gaenslens, thigh thrust, compression test facet pain noted to T7-10 Extremity Other: no pain with internal and external log roll of right hip Neuro Common normals: oriented x3 Sensorium/orientation: alert Gait (neuro): assistive device used cane Motor exam: no movement abnormalities noted Psych Common normals: mental status grossly normal, thought process normal, cooperative, affect normal, speech normal and activity/motor behavior normal Speech: normal speech Thought process: normal thought process Results Additional Findings Additional findings: If on a controlled substance or opioids, I have checked an [place] report on this patient and there are no aberrancies noted in the prescribing history.��If on a controlled substance or opioid a drug screen was completed and reviewed within the last year, and if there has not been a drug screen completed we ordered one today to monitor higher risk, state monitored pain medication use. As part of providing excellent, safe, comprehensive care, the following was completed at our patient's visit: 1. A medication reconciliation and review to ensure accurate knowledge of current/active medications, including asking our patients to inform us about any oygo-uww-yxgczfl medications or herbal remedies/nutritional supplements/alternative remedies. 2. A review to specifically ensure our patients have had annual screening for screening for depression, screening for tobacco use, and screening for unhealthy alcohol use. For concerning screenings had a discussion with the patient, provided patient education, and recommended follow-up with primary care provider when appropriate. If patient noted with a risk of falling, they received education on strength, gait, and balance training to prevent future risk of falling. Portions of this note may have been carried over from the previous visit and updated as appropriate. Please note this office utilizes paper charting in addition to the electronic medical record. A list of current medications, vitals, and PMH is available there as the clinical staff outside of myself do not have access to [employer] charting during the clinic day operations. As part of providing quality comprehensive care the current medications, vitals, and PMH were reviewed in the paper chart. Assessment and Plan Assessment and Plan (1) Thoracic spondylosis: Assessment and Plan: The patient has had over 3 months of moderate to severe middle back pain with functional impairment and inadequate response to conservative care including NSAIDS (unless there are contraindication such as concurrent blood thinners), multiple oral or topical pain medications, and home exercise program/physical therapy.� Patient has completed >6 weeks of guided home exercise program and/or formal physical therapy program without relief of their symptoms.� The Oswestry Disability Index was completed, and the patient scored a 80%.� The patient noted the following:�� moderate to severe pain impacting ADLs, sitting, standing, walking, sleeping, social life, travel We discussed the risks and benefits of the procedure with the patient, and we are NOT planning on using sedation as outlined in the guidelines from Medicare unless there is a documented reason that sedation would be strongly recommended.��The procedure will be completed with fluoroscopic guidance.� (2) Sacroiliitis: (3) Lumbar radiculopathy: (4) Lumbar stenosis with neurogenic claudication: (5) Chronic prescription opiate use: Assessment and Plan: I feel these medications are improving the patient's quality of life and allow them to tolerate activities of daily living as well as participate in recreational activity.� The patient does not report intolerable side effects. The patient is NOT opioid naive and non-pharmacologic and non-opioid treatment has failed to significantly relieve the patient's pain and improve functionality. The patient has a diagnosis that is related to a somatic or visceral pain etiology. � �� I reviewed with the patient the potential risks and side effects with the use of� opioid medications including but not limited to respiratory depression,� sedation, and even . Within the last 12 months I have verified the patient has access to naloxone should� these effects occur. The patient was advised to let� their family know they had Naloxone in case they would need to administer� the medication. I advised the patient to avoid the use of any other� sedation substances including alcohol, THC, and benzodiazepines while� taking opioid medications due to the risk of compounding side effects and� detrimental outcomes. within the last 12 months I have reviewed the ANTHROPOLOGY DEPARTMENT CHAIR, pain treatment agreement and urine drug screen.� �� A drug screen was completed within the last year, and no aberrancies were noted regarding their use of controlled substances. The patient understands they are subject to the terms and conditions of the pain contract that they have signed. � �� I have checked an [place] report on this patient today and there are no aberrancies noted in the prescribing history.� Plan bilateral T8,9 T9,10 mbb x2 working towards RFA for axial facet mediated back pain continue current medications continue HEP as tolerated f/u after each injection
== END 2025-05-24 11:00 | disposition home or self-care (01) ==
LOC: PM 11:00
PROVIDERS: PCP Family Medicine; Visit Provider Nurse Practitioner
DX: M47.814 Spondylosis without myelopathy or radiculopathy, thoracic region (principal); M46.1 Sacroiliitis, not elsewhere classified; M54.16 Radiculopathy, lumbar region; M48.062 Spinal stenosis, lumbar region with neurogenic claudication; Z79.891 Long term (current) use of opiate analgesic
CPT/HCPCS: G0463

== ENCOUNTER 2025-07-02 10:23 | Day surgery (SDC) | payer MEDICARE, SELFPAY ==
[2025-07-02 10:40] VITALS: BP 118/63; PULSE 71; TEMP 36.3; O2SAT 95
[2025-07-02 11:11] VITALS: BP 124/60; PULSE 80; O2SAT 94
[2025-07-02 11:14] VITALS: BP 154/69; PULSE 69; O2SAT 95
[2025-07-02] MEDS: BUPIVACAINE HCL 0.25% PF 25 MG/10 ML VIAL 6 ML INJ (11:15)
--- NOTE | 2025-07-02 11:15 | W.PM.PROCNOT ---
Date of procedure: 07/02/25 Pre-op diagnosis: Pain due to thoracic spondylosis without myelopathy Post-op diagnosis: same as pre-op Procedure: Procedure: Bilateral T8-9, 9-10 medial branch block Medications: Bupivacaine 0.25% 6cc The patient was seen and examined in the preoperative holding area.? An informed consent was obtained and placed on the chart.? The patient was brought to the medical procedure unit and placed in the prone position.? A timeout was completed verifying correct patient, procedure site, positioning, plan, and special equipment.? Using aseptic technique, the needle was placed at left T8. Under direct fluoroscopic visualization a Quincke-tipped spinal needle was advanced to the junction of the superior articulating process with the transverse process at the designated medial branch segment.? Preceded by negative aspiration, the above-mentioned injectate was placed in 1 mL aliquots.? The procedure was repeated at left T9, 10.? The needle was removed and insertion site was covered. The same procedure, at the same levels, was completed on the right side. The patient was taken to the postprocedural recovery area and monitored for an appropriate length of time before found suitable for discharge in the company of a responsible adult. Anesthesia: Local Surgeon: Adelfo Hansen Pathology: none sent Condition: stable Disposition: no change
[2025-07-02] MEDS: LIDOCAINE HCL 2% 400 MG/20 ML MDV INJ (11:16)
== END 2025-07-02 11:22 | disposition home or self-care (01) ==
LOC: SURGOUT 10:24
PROVIDERS: PCP Family Medicine; Visit Provider Anesthesiology
DX: M47.814 Spondylosis without myelopathy or radiculopathy, thoracic region (principal); M54.6 Pain in thoracic spine
CPT/HCPCS: 64490; 64491; J0665

== ENCOUNTER 2025-07-05 08:36 | Outpatient (OUT) | payer MEDICARE, SELFPAY ==
--- OUTSIDE RECORDS SUMMARY | 2025-07-05 08:42 | XMS_ITS | CCD ---
Author Organization [facility] Care Team Providers Care Shoe Folder Name Role Phone LENNY PEDRAZA Unavailable Unavailable AUDREY HORN Unavailable Unavailable AUDREY HORN Unavailable Unavailable LENNY PEDRAZA Unavailable Unavailable BIA CAO Primary Care Unavailable BIA CAO Primary Care Unavailable Jacob Viveros Unavailable Unavailable Nash GARCIA, Bia Mccormick Primary Care Provider (Hist), No Pcp Primary Care Provider Unavailkwasi e Oswaldo GARCIA, Corey Castillo Unavailable Corey Chacon MD Unavailable ROSE VELASQUEZ Attending Unavailable HOOVERMANDI RUIZ Referring Unavailable HOOVERMANDI Attending Unavailable MANDI HOOVER Referring Unavailable Jacob Viveros Unavailable Unavailable Nash GARCIA, Bia Mccormick Primary Care Provider [phone] Nash GARCIA, Bia Mccormick Unavailable Bia Cao MD Primary Care Provider BIA CAO Attending Unavailable KATERIN ALVARADO Attending Unavailable TAE HARDY Referring Unavailable BIA CAO Anny Attending Unavailable BIA CAO Anny Attending Unavailable BIA CAO Anny Attending Unavailable BIA CAO Anny Attending Unavailable TRACI FLORES Attending Unavailable BIA CAO F Attending Unavailable BIA CAO Anny Referring Unavailable NASH BIA Mccormick Attending Unavailable BIA CAO F Attending Unavailable BIA CAO F Referring Unavailable BIA CAO Anny Attending Unavailable SANTO CHRISTIANSON Attending Unavailable BIA CAO Attending Unavailable Bia Cao MD Primary Care Provider JOHN JOHNSON Attending Unavailable BIA CAO F Referring Unavailable BIA CAO Anny Primary Care Unavailable YOANNA DORSEY Attending Unavailable BIA CAO Referring Unavailable BIA CAO Primary Care Unavailable RANDALL JAUREGUI I Attending Unavailable NASH, BIA Mccormick Referring Unavailable NASH, BIA Mccormick Primary Care Unavailable GUNDABOLU, JOHN Attending Unavailable NASH, BIA Mccormick Referring Unavailable NAHS, BIA Mccormick Primary Care Unavailable GUNDABOLU, JOHN Referring Unavailable NASH, BIA Mccormick Primary Care Unavailable GIEDRAITIS V, ANDRIUS Referring Unavailabl e NASH, BIA Mccormick Primary Care Unavailable NASH, BIA F Primary Care Unavailable TISHA GALLAGHER Attending Unavailable NASH, BIA F Referring Unavailable NASH, BIA Mccormick Primary Care Unavailable NASH, BIA Mccormick Referring Unavailable NASH, BIA Mccormick Primary Care Unavailable GUNDABOLU, JOHN Referring Unavailable NASH, BIA Mccormick Primary Care Unavailable NASH, BIA Mccormick Referring Unavailable NASH, BIA Mccormick Primary Care Unavailable NASH, BIA F Referring Unavailable NASH, BIA Mccormick Primary Care Unavailable GUNDABOLU, JOHN Referring Unavailable NASH, BIA Mccormick Primary Care Unavailable GUNDABOLU, JOHN Referring Unavailable NASH, BIA Mccormick Primary Care Unavailable NASH, BIA F Referring Unavailable NASH, BIA Mccormick Primary Care Unavailable GUNDABOLU, JOHN Referring Unavailable NASH, BIA Mccormick Primary Care Unavailable NASH, BIA Mccormick Referring Unavailable NASH, BIA Mccormick Primary Care Unavailable GUNDABOLU, JOHN Referring Unavailable NASH, BIA Mccormick Primary Care Unavailable NASH, BIA F Referring Unavailable NASH, BIA Mccormick Primary Care Unavailable GUNDABOLU, JOHN Referring Unavailable NASH, BIA Mccormick Primary Care Unavailable NASH, BIA Mccormick Referring Unavailable NASH, BIA Mccormick Primary Care Unavailable GUNDABOLU, JOHN Referring Unavailable NASH, BIA Mccormick Primary Care Unavailable NASH, BIA F Referring [...] GARCIA, Adelfo Arredondo Attending Unavailable Jade GARCIA, Andrius Arredondo Attending Unavailable Jade GARCIA, Andrius Maria Elena Attending Unavailable Gicyndi GARCIA, Adelfo Arredondo Attending Unavailable Jade GARCIA, Adelfo Arredondo Attending Unavailable Jade GARCIA, Adelfo Arredondo Attending Unavailable Jade GARCIA, Adelfo Arredondo Attending Unavailable Allergies Allergy Classification Reported Allergen(s) Allergy Type Date of Onset Reaction(s) Facility Amoxicillin / Clavulanate (1 source) Amoxicillin / Clavulanate Drug Allergy 08-14-20 11 Rash [facility] Aspartame (1 source) Aspartame Drug Allergy 02-13-20 17 Other: See Comments [facility] Clavulanate (1 source) Clavulanate Drug Allergy 02-13-20 17 [facility] egg white (chicken) allergenic extract (1 source) egg white (chicken) allergenic extract Drug Allergy 08-14-20 11 Swelling [facility] Lincomycin (1 source) Lincomycin Drug Allergy 11-04-20 16 [facility] NSAIDs (1 source) oxaprozin Drug Allergy 11-04-20 16 [facility] Penicillins (antibiotic) (1 source) Penicillins Drug Allergy 11-04-20 16 [facility] (20 sources) Aspartame; Translations: [ASPARTAME] Drug Allergy 02-13-20 17 Unknown [facility] (20 sources) Clavulanate; Translations: [CLAVULANIC ACID] Drug Allergy 02-13-20 17 Rash [facility] (20 sources) Indomethacin; Translations: [INDOMETHACIN] Drug Allergy 05-02-20 21 Unknown, Hypotension [facility] (20 sources) Influenza Vaccines Drug Allergy 06-04-20 23 Rash [facility] (20 sources) Lincomycin; Translations: [LINCOMYCIN] Drug Allergy 08-14-20 11 Anaphylaxis, Rash [facility] (20 sources) Lincomycin Drug Allergy 12-01-19 22 Unknown [facility] (20 sources) Penicillins; Translations: [PENICILLINS] Drug Allergy 11-04-20 16 Rash [facility] (20 sources) Sulfamethoxazole / Trimethoprim; Translations: [SULFAMETHOXAZOLE-T RIMETHOPRIM] Drug Allergy 10-22-20 23 Hives [facility] (20 sources) Sulfonamides (Antibiotic) Drug Intolerance 11-11-20 22 Hives [facility] (20 sources) Amoxicillin-Pot Clavulanate; Translations: [AMOXICILLIN-POT CLAVULANATE] Drug Allergy 08-14-20 11 Rash [facility] Work Phone: (20 sources) Clemizole; Translations: [CLEMIZOLE] Propensity to adverse reactions 02-13-20 17 Rash [facility] (6 sources) Eggs Or Egg-Derived Products Drug Allergy 08-14-20 11 Swelling, Unknown [facility] (20 sources) Other; Translations: [OTHER] Propensity to adverse reactions 02-13-20 17 Swelling, Other (See Comments) [facility] Work Phone: (20 sources) Poultry Meal Propensity to adverse reactions 03-02-20 23 [facility] (20 sources) Wound Dressing Adhesive Drug Allergy 06-04-20 23 Rash [facility] (20 sources) Adhesive agent; Translations: [ADHESIVE] Drug Allergy 11-04-20 16 Other: See Comments [facility] Work Phone: (20 sources) Aspartame Drug Allergy 02-13-20 Other: See Comments, Other (See Comments) [facility] (20 sources) Clindamycin; Translations: [LINCOSAMIDES] Drug Allergy 02-13-20 17 Anaphylaxis [facility] (6 sources) egg white (chicken) allergenic extract; Translations: [EGG WHITE] Drug Allergy 08-14-20 11 Swelling [facility] (20 sources) oxaprozin; Translations: [OXAPROZIN] Drug Allergy 11-04-20 16 [facility] (11 sources) Penicillins Drug Allergy 11-04-20 16 Rash [facility] (20 sources) Influenza Virus Vaccines; Translations: [INFLUENZA VIRUS VACCINES] Drug Allergy 02-13-20 17 Swelling [facility] (20 sources) Egg-Derived Products Drug Allergy 08-14-20 11 Swelling, Unknown [facility] (20 sources) egg shell membrane; Translations: [EGGSHELL MEMBRANE] Propensity to adverse reactions to drug 11-04-20 16 [facility] (8 sources) Penicillins Propensity to adverse reactions to drug 11-04-20 16 Rash [facility] (11 sources) Coporuik-6-Vr5 Antimigraine Agents; Translations: [[id number]-[id number] ANTIMIGRAINE AGENTS] Propensity to adverse reactions to drug 02-20-20 25 [facility] (3 sources) chicken allergenic extract; Translations: [POULTRY] Drug Allergy 03-02-20 [facility] (3 sources) Sulfonamides (Antibiotic); Translations: [SULFA (SULFONAMIDE ANTIBIOTICS)] Propensity to adverse reactions to drug (disorder) 11-11-20 [facility] Medications Current Medications Medication Drug Class(es) Dates Sig (Normalized) Sig (Original) acetaminophen 500 mg oral tablet (20 sources) take 2 tablets by mouth every [...] mg / caffeine 65 mg oral tablet (18 sources) Platelet Aggregation Inhibitor, Nonsteroidal Anti-inflammatory Drug, Central Nervous System Stimulant, Methylxanthine take 1 tablet by mouth every six hours as needed for headache oyysxkq-rvupytxulwuhk-qvsnbvdo (EXCEDRIN MIGRAINE) 250-250-65 mg per tablet Take 1 tablet by mouth every 6 (six) hours as needed for headaches. Active acetaminophen 325 mg / dichloralphenazone 100 mg / isometheptene 65 mg oral capsule (6 sources) take 1 capsule by mouth every six hours as needed acetaminophen-dichloralphenazone -isometheptene (MIDRIN) 65-100-325 mg per capsule 1 capsule four times daily as needed. Active [id number] 200 actuat albuterol 0.09 mg/actuat metered dose inhaler (20 sources) beta2-Adrenergic Agonist St ar t: take 2 puff(s) by inhalation every four hours albuterol HFA 90 mcg/act inhaler Indications: Mild intermittent asthma without complication (HCC) Inhale 2 puffs every 4 (four) hours. [...] (Lipitor) 40 MG tablet Indications: Mixed hyperlipidemia Take 1 tablet (40 mg) by mouth [...] (Coreg) 25 MG tablet Indications: Essential hypertension Take 1 tablet (25 mg) by mouth [...] 7 days. 14 tablet 07/11/2024 07/18/2024 Active CRANBERRY CONCENTRATE PO (5 sources) take 1 tablet by mouth once daily CRANBERRY CONCENTRATE PO Take 1 tablet by mouth Daily Active cyclobenzaprine hydrochloride 5 mg oral tablet [...] MG tablet Indications: Hyperlipidemia, unspecified hyperlipidemia type Take 1 tablet (160 mg) by mouth [...] (Apresoline) 100 MG tablet Indications: Essential hypertension Take 1 tablet (100 mg) by mouth in the morning. 90 tablet 3 02/19/2025 02/19/2026 Active hydrALAZINE (Apr esoline) 50 MG tablet Take 50 mg by mouth Only if bp is above 170, an hour after taking 100mg hydralazine. Active hydroCHLOROthiazide 12.5 mg / lisinopril 20 mg oral tablet (20 sources) Thiazide Diuretic, Angiotensin Converting Enzyme Inhibitor Start: 12-06-2023 End: 04-09-2025 take 1 tablet by mouth in the morning lisinopril-hydroCHLOROthiazide 20-12.5 MG tablet Indications: Essential hypertension Take 1 tablet by mouth in the morning. 90 tablet 3 04/09/2025 Active Start: 06-01-2023 take 1 tablet by [...] 05/10/2024 Active L.acidoph/B.animalis/B.longu m (FLORAJEN DIGESTION ORAL) (18 sources) take 1 tablet by mouth in the morning L.acidoph/B.animalis/B.longum (FLORAJEN DIGESTION ORAL) Take 1 tablet by mouth in the morning. Active lactobacillus acidophilus 16 mg oral capsule (20 sources) Lactobacillus (F raven Women) capsule as directed Orally Active levothyroxine sodium 0.15 mg oral tablet (20 sources) l- yrox ine Star t: 01-11 End: 03-23 take 1 tablet by mouth in the morning levothyroxine (Synthroid, Levoxyl) 150 MCG tablet 1 tablet in the morning on an empty stomach Orally Wed thrwed, skip Wednesday02/10/2023 Active Magnesium (20 sources) take [...] mirabegron 50 mg extended release oral tablet (16 sources) beta3-Adrenergic Agonist Start: 12-19-19 25 take 1 tablet by mouth every twenty-four hours in the morning mirabegron (MYRBETRIQ) 50 mg tablet extended release 24 hr Take 1 tablet (50 mg total) by mouth in the morning. 30 tablet 12/19/2024 Active mirtazapine 15 mg oral tablet (20 sources) Start: 06-19-20 25 take 1 tablet by mouth at bedtime mirtazapine (Remeron) 15 MG tablet Indications: Primary insomnia , Major depressive disorder, single episode, in full remission TAKE 1 TABLET BY MOUTH AT BEDTIME 90 tablet 06/19/2025 Active Start: 12-26-2024 End: 06-24-2025 take 1 tablet by mouth at bedtime mirtazapine (Remeron) 15 MG tablet Indications: Primary insomnia , Major depressive disorder, single episode, in full remission Take 1 tablet (15 mg) by mouth at bedtime 90 tablet 1 12/26/2024 06/19/2025 Discontinued multivitamin tablet (6 sources) take 1 tablet by margo th once daily multivitamin tablet Take 1 tablet [...] 11 12/12/2024 03/26/2028 Active Start: 12-02-2016 omeprazole (MI ILOSEC) 20 mg capsule 20 mg once [...] by mouth. 11/21/2020 Active polyethylene glycol 3350 46727 mg powder for oral solution (3 sources) [...] mouth. 0 Active therapeutic multivitamin (THERAGRAN) tablet (18 sources) take 1 tablet by mouth once daily at dinner therapeutic multivitamin (THERAGRAN) tablet Take 1 tablet by mouth daily with dinner. Active topiramate 100 mg oral tablet (6 sources) Start: 12-21-2017 topiramate (TOPAMAX) 100 mg tablet 300 mg once daily. 100 mg in the A.M and 200 at bedtime 0 12/21/2017 Active ubrogepant 100 mg oral tablet (20 sources) Start: 02-26-2025 take 1 tablet by mouth every twenty-four hours as needed Ubrelvy 100 MG tablet Take 1 tablet by mouth Daily as needed (migraine) 02/26/2025 Active Start: 01-07-2024 End: 02-12-2025 take 1 tablet by mouth once as [...] sources) Leukotriene Receptor Antagonist Start: 01-07-2018 End: 03-22-2025 take 1 tablet by mouth in the morning zafirlukast (Accolate) 20 MG tablet Indications: Moderate persistent asthma, unspecified whether complicated (HCC) Take 1 tablet (20 mg) by mouth in the morning and 1 tablet (20 mg) before bedtime. 180 tablet 3 03/22/2025 Active Completed/Discontinued Medications Medication Drug Class(es) Dates [...] days. 14 capsule 07/14/2024 07/21/2024 Active romosozumab (20 sources) Start: 06-13-2025 End: 06-13-2025 210 mg, subcutaneous, Once, On Wed06/13/25 at 1230, For 1 dose, Bring to room temp for at least 30min in original container. Give sub-Q into abdomen, thigh, or outer area of upper arm. Give two consecutive SubQ injections of 105 mg each for a total dose of 210 mg. Rotate injection sites. Start: 05-16-2025 End: 05-16-2025 210 mg, subcutaneous, Once, On Wed05/16/25 at 1015, For 1 dose, Bring to room temp for at least 30min in original container. Give sub-Q into abdomen, thigh, or outer area of upper arm. Give two consecutive SubQ injections of 105 mg each for a total dose of 210 mg. Rotate injection sites. Start: 04-18-2025 End: 04-18-2025 210 mg, subcutaneous, Once, On Wed04/18/25 at 1015, For 1 dose, Bring to room temp for at least 30min in original container. Give sub-Q into abdomen, thigh, or outer area of upper arm. Give two consecutive SubQ injections of 105 mg each for a total dose of 210 mg. Rotate injection sites. Start: 03-21-2025 End: 03-21-2025 210 mg, subcutaneous, [...] Onset: 5 06-04-2023 Chronic E Codes: Fall (3 sources) Fall Onset: [...] Translations: [Mixed incontinence] Onset: 0 06-04-2023 Chronic Influenza (2 sources) Influenza due to Influenza [...] [Tinea unguium] 10-30-2024 Episodic Nausea and vomiting (18 sources) Postoperative nausea and vomiting; Translations: [Nausea [...] 06-04-2023 Chronic Other and ill-defined heart disease (18 sources) Diastolic dysfunction; Translations: [Other ill-defined heart diseases] Onset: 1 05-23-2021 Chronic Other and ill-defined heart disease (18 sources) Left ventricular hypertrophy; Translations: [Cardiomegaly] Onset: [...] of meninges (HCC)] Onset: 4 Chronic Other connective tissue disease [...] hearing loss] 04-05-2024 Chronic Other gastrointestinal disorders (20 sources) Chronic [...] 4 02-15-2024 Chronic Other nervous system disorders (18 sources) Chronic pain syndrome; Translations: [Chronic pain syndrome] Onset: 8 2018 Chronic Other nervous system disorders (18 sources) Carpal tunnel syndrome; Translations: [Carpal tunnel syndrome, unspecified upper limb] Onset: 1 10-28-2021 Chronic Other skin disorders (2 sources) Dystrophia [...] 01-15-2025 Episodic Prolapse of female genital organs (12 sources) Midline cystocele; Translations: [Cystocele, midline] Onset: 5 01-23-2025 Chronic Spondylosis; intervertebral disc disorders; other back [...] unspecified; Translations: [Low back pain, unspecified] Onset: Urinary tract infections (6 sources) Acute cystitis; Translations: [Acute cystitis without hematuria] Onset: 07-14-2024 Episodic Past or Other Problems Problem Classification Problem Date Documented Da te Episodic/Chronic Acute and unspecified renal failure (18 sources) Acute renal failure syndrome; Translations: [Acute kidney failure, unspecified] Onset: 03-02-2023 03-02-2023 Episodic Acute cerebrovascular disease (18 sources) Hematoma of subdural space of neuraxis; Translations: [SDH (subdural hematoma)] Onset: 01-04-2018 Resolved: 07-01-2021 07-01-2021 Chronic Adjustment disorders (20 sources) Adjustment disorder with anxious mood; Translations: [Adjustment disorder with anxiety] Onset: 05-04-2023 Resolved: 10-24-2023 10-24-2023 Chronic Calculus of urinary tract (20 sources) Kidney stone; Translations: [Calculus of kidney] Onset: 03-02-2023 06-04-2023 Episodic E Codes: Fall (6 sources) Fall; Translations: [Unspecified fall, subsequent encounter] Onset: 12-23-2024 12-26-2024 Episodic Genitourinary symptoms and ill-defined conditions (8 sources) Dysuria; Translations: [Dysuria] Onset: 08-29-2024 07-10-2024 Episodic Headache; including migraine (20 sources) Migraine; Translations: [Migraine, unspecified, not intractable, without status migrainosus] Onset: 12-12-2018 Resolved: 10-24-2023 10-24-2023 Chronic Malaise and fatigue (20 sources) Asthenia; Translations: [Weakness] Onset: 11-04-2016 12-23-2023 Episodic Mood disorders (20 sources) Mood disorders Onset: 12-06-2023 Resolved: 02-12-2025 12-06-2023 Other circulatory disease (18 sources) Low blood pressure; Translations: [Hypotension, unspecified] [...] 08-14-2011 05-04-2024 Episodic Other connective tissue disease (18 sources) Muscle spasm of cervical muscle of neck; Translations: [Other muscle spasm] Onset: 05-05-2019 05-05-2019 Episodic Other connective tissue disease (18 sources) Nocturnal muscle spasm ; Translations: [Other [...] 02-15-2024 02-15-2024 Episodic Other lower respiratory disease (18 sources) Dyspnea; Translations: [Shortness of breath] Onset: 11-06-2019 11-06-2019 Episodic Other nervous system disorders (20 sources) Impairment of balance; Translations: [Other abnormalities of gait and mobility] Onset: 06-12-2019 05-04-2024 Episodic Other non-traumatic joint disorders (20 sources) Hip pain; Translations: [Pain in right hip] Onset: 10-13-2017 11-03-2017 Episodic Other upper respiratory disease (18 sources) Chronic hoarseness; Translations: [Dysphonia] Onset: 07-24-2020 07-24-2020 Episodic Residual codes; unclassified (12 sources) Family history of malignant neoplasm of breast in first degree relative; Translations: [Family history of malignant neoplasm of breast] Onset: 01-23-2025 01-23-2025 Episodic Residual codes; unclassified (12 sources) Family history of malignant neoplasm of breast at under age 50 in second degree female relative; Translations: [Family history of malignant neoplasm of breast] Onset: 01-23-2025 01-23-2025 Episodic Residual codes; unclassified (12 sources) Family history of malignant neoplasm of ovary in second degree relative; Translations: [Family history of malignant neoplasm of ovary] Onset: 01-23-2025 01-23-2025 Episodic Screening and history of mental health [...] Name Value Interpretation Reference Range Facility CALCIUMon 06-12-2025 Calcium [Mass/Vol] 9.5 mg/dL Normal 8.5-10.5 [facility] Comment on above: Performed By: #### 1 7861-6, THYR, 72746-7 #### [facility] ([id number]) [address], [address] [place] [address] CALCIUMon 05-15-2025 Calcium [Mass/Vol] 9.7 mg/dL Normal 8.5-10.5 [facility] Comment on above: Performed By: #### 1 7861-6, THYR, 82568-2 #### [facility] ([id number]) [address], [address] [place] [address] CALCIUMon 04-13-2025 Calcium [Mass/Vol] 9.5 mg/dL Normal 8.5-10.5 [facility] Comment on above: Performed By: #### 1 7861-6, THYR, 60767-8 #### [facility] ([id number]) [address], [address] [place] [address] CALCIUMon 03-19-2025 Calcium [Mass/Vol] 9.6 mg/dL Normal 8.5-10.5 [facility] Comment on above: Performed By: #### 1 7861-6, THYR, 57810-3 #### [facility] ([id number]) [address], [address] [place] [address] POCT Urinalysis Auto, W/O Mi croscopyon 02-27-2025 External Poct Urine Blood Negative [facility] External Poct Urine Glucose Negative [facility] External Poct Urine Ketones Negative [facility] External Poct Urine Leukocyte Esterase Negative [facility] External Poct Urine Nitrite Negative [facility] External Poct Urine Ph 5.5 [facility] External Poct Urine Protein 1+ [facility] CALCIUMon 02-14-2025 Calcium [Mass/Vol] 9.3 mg/dL Normal 8.5-10.5 [facility] Comment on above: Performed By: #### 1 7861-6, THYR, 17580-2 #### [facility] ([id number]) [address], [address] [place] [address] CT ABDOMEN PELVIS WO IV CONT RASTon [...] UA Negative Negative - 4(70) +++ mg/dL [facility] Blood, UA Positive Negative - 50 Darryl/mcL [facility] Clarity, UA Cloudy [facility] Color, UA Yellow [facility] Glucose, UA Negative Negative - 2000(110) ++++ mg/dL [facility] Interpretation and review of laboratory results Abnormal [facility] Ketones, UA Negative Negative - 160(16) ++++ mg/dL [facility] Leukocytes, UA 3+ Negative - 500+++ Obdulio/mcL [facility] Nitrite, UA Positive Negative - Positive [facility] pH, UA 5 5 - 9 [facility] Protein, UA 2+ Negative - 2000(20) ++++ mg/dL [facility] Spec Grav, UA 1.02 1 - 1.03 [facility] Urobilinogen, UA 1.0 0.2 - 12 mg/dL [facility] - Microbiology an d Antimicrobial susceptibilityon 01-15-2025 SARS-CoV-2 (COVID-19) RNA MICHAEL+probe Ql (Unsp spec) Negative [facility] No Panel Informationon 01-15 FLU A Positive [facility] FLU B Negative [facility] Interpretation and review of laboratory results Abnormal [facility] CALCIUMon 01-11-2025 Calcium [Mass/Vol] 9.8 mg/dL Normal 8.5-10.5 [facility] Comment on above: Performed By: #### 1 7861-6, THYR, 39853-4 #### [facility] ([id number]) [address] [place] [address] Urinalysis macro (dipstick) panel (U)on 01-01-2025 Bilirubin, UA Negative Negative - 4(70) +++ mg/dL [facility] Blood, UA Positive Negative - 50 Darryl/mcL [facility] Clarity, UA Cloudy [facility] Color, UA Dark María [facility] Glucose, UA Negative Negative - 2000(110) ++++ mg/dL [facility] Interpretation and review of laboratory results Abnormal [facility] Ketones, UA Negative Negative - 160(16) ++++ mg/dL [facility] Leukocytes, UA 4+ Negative - 500+++ Obdulio/mcL [facility] Nitrite, UA Negative Negative - Positive [facility] pH, UA 5 5 - 9 [facility] Protein, UA 3+ Negative - 2000(20) ++++ mg/dL [facility] Spec Grav, UA 1.02 1 - 1.03 [facility] Urobilinogen, UA 0.2 0.2 - 12 mg/dL [facility] CT BRAIN WO CONTon CT BRAIN [...] Mark Keita MD on 12/23/2024 8:41 PM Dharmesh Trimble have personally reviewed the image(s) and agree with and/or edited the report Finalized by Dharmesh Mittal on 12/23/2024 8:53 PM Normal [facility] CT CERVICAL SPINE WO CONTon 12-23-2024 [...] by Dharmesh Mittal on 12/23/2024 8:44 PM [facility] [facility] KNEE RT WO CONTon 025 [...] Singh MD on 12/23/2024 9:54 PM Normal [facility] XR CHEST 1 VWon 12-23-2024 XR [...] Mark Keita MD on 12/23/2024 8:29 PM Eileen Trimble MD have personally reviewed the image(s) and agree with and/or edited the report Finalized by Eileen Negrete MD on 12/23/2024 8:36 PM Normal [facility] XR HIP RT 2-3 VIEWS W [...] Dharmesh Mittal on 12/23/2024 8:41 PM Normal [facility] XR KNEE RT 3 VWSon XR KNEE RT 3 VWS XR KNEE RT 3 VWS XR KNEE RT 3 VWS HISTORY: Fall, right knee pain. COMPARISON: Right knee radiographs 02/08/2017. FINDINGS/Impression: 3 views obtained. Questionable irregularity of the medial tibial plateau which may reflect a subacute fracture. Recommended dedicated CT for complete assessment. Tiny suprapatellar effusion. Moderate osteoarthritic changes. Approved by Resident aMrk Keita MD on 12/23/2024 8:36 PM Dharmesh Trimble have personally reviewed the image(s) and agree with and/or edited the report Finalized by Dharmesh Mittal on 12/23/2024 8:56 PM Normal [facility] XR SHOULDER RT MIN 2 VWSon [...] Negrete MD on 12/23/2024 8:31 PM Normal [facility] Laboratory - Miscellaneous t estson 12-10-2024 Service comment (Unsp spec) [Interp] [facility] Comment on above: This urine was adolfo zed for the presence of WBC, RBC, bacteria, casts, and other formed elements. Only those elements seen were reported. No Panel Informationon 12-10 Performing Organization Information Site ID: QPT Name: [facility] Address: [address] [place] [id number] Director: Angel Noble MD [facility] Urinalysis complete panel (U )on 12-10-2024 Appearance (U) TURBID Abnormal CLEAR [facility] Bacteria LM.HPF (Urine sed) [#/Area] MANY Abnormal NONE SEEN /HPF [facility] Bilirubin Ql (U) Negative NEGATIVE [facility] Color (U) YELLOW YELLOW [facility] Epithelial cells.squamous LM.HPF (Urine sed) [#/Area] NONE SEEN < OR = 5 /HPF [facility] Glucose Ql (U) Negative NEGATIVE [facility] Hemoglobin Ql (U) TRACE Abnormal NEGATIVE [facility] Hyaline casts (Urine sed) [#/Area] NONE SEEN NONE SEEN /LPF [facility] Interpretation and review of laboratory results Abnormal [facility] Ketones Ql (U) Negative NEGATIVE [facility] Leukocyte esterase Test strip Ql (U) 3+ Abnormal NEGATIVE [facility] Nitrite Ql (U) Negative NEGATIVE [facility] pH (U) 6.5 [pH] 5.0 - 8.0 [facility] Protein Ql (U) TRACE Abnormal NEGATIVE [facility] RBC LM.HPF (Urine sed) [#/Area] 0-2 < OR = 2 /HPF [facility] Specific gravity (U) [Rel density] 1.017 1.001 - 1.035 [facility] WBC LM.HPF (Urine sed) [#/Area] PACKED Abnormal < OR = 5 /HPF [facility] Urinalysis macro (dipstick) panel (U)on 12-08-2024 Bilirubin, UA Negative Negative - 4(70) +++ mg/dL [facility] Blood, UA Positive Negative - 50 Darryl/mcL [facility] Clarity, UA Cloudy [facility] Color, UA Yellow [facility] Glucose, UA Negative Negative - 2000(110) ++++ mg/dL [facility] Interpretation and review of laboratory results Abnormal [facility] Ketones, UA Negative Negative - 160(16) ++++ mg/dL [facility] Leukocytes, UA 4+ Negative - 500+++ Obdulio/mcL [facility] Nitrite, UA Negative Negative - Positive [facility] pH, UA 6 5 - 9 [facility] Protein, UA 2+ Negative - 2000(20) ++++ mg/dL [facility] Spec Grav, UA 1.01 1 - 1.03 [facility] Urobilinogen, UA 0.2 0.2 - 12 mg/dL [facility] XR SPINE LUMBAR 2 OR 3 [...] Mendoza MD on 11/28/2024 3:13 PM Normal [facility] 10[facility]04[facility]2024 [facility] ANJELICAANGELA Sharon ([id number]) 1945 F Date Time Provider Department 10/04/24 ROSE VELASQUEZ [facility] During your visit today, we recorded the following information about you: Jessica Ashley 10/04/2024 3:20 PM Signed General Call Caller : Angela Contact Reason for Call : Did you speak with Dr. Hoover regarding her most recent appt? Patient requesting return call ? Yes Rose Velasquez, MASOOD.DISTILLERY LABORER 10/06/2024 10:09 AM Signed Voicemail left for Angela at [phone]. Call back number given. 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 My note was forward to Dr. Hoover for review. At this time we recommend follow up and new imaging in 1 year. Rose Velasquez, MSN, BEET END SUPERVISOR, DISTILLERY LABORER Certified Nurse Practitioner Allergies As of Date: [...] Encounter Status:Closed by ROSE VELASQUEZ on 10/06/24 [facility] CNOVon 09-26-2024 [facility] Office Visit ([facility] ) ANGELA RUTH ([id number]) 1945 F Date Time Provider Department 09/26/24 1:45 PM ROSE VELASQUEZ [facility] During your visit today, we recorded the following information about you: Pulse Blood pressure Weight 91/minute 143/81 67 kg Rose Velasquez APRN.CNP 09/26/2024 3:27 PM Signed [facility] [place] [facility] NEURO-ONCOLOGY OUTPATIENT CLINIC NOTE [...] bedtime (Pat (more content not included)... Normal [facility] MR Brain WO and W contrast I Von 09-26-2024 IMPRESSION: Stable size of a RIGHT petrous ridge presumed meningioma compared to 03/02/2024. Parking Ramp Attendant: [facility] Transcribe Date/Time: Sep 26 2024 2:10P Dictated by : MAUREEN PEARL MD This examination was interpreted and the report reviewed and electronically signed by: MAUREEN PEARL MD on Sep 26 2024 2:14PM [facility] DIVISION OF RADIOLOGY * * *Final Report* * * DATE OF EXAM: Sep 26 2024 12:29PM [facility] 0295 - MRI BRAIN WO/W IVCON [...] DIVISION OF RADIOLOGY Provider, [facility] - 09/26/2024 * * *Final Report* * * DATE OF EXAM: Sep 26 2024 12:29PM [facility] 0295 - MRI BRAIN WO/W IVCON [...] petrous ridge presumed meningioma compared to 03/02/2024. Parking Ramp Attendant: [facility] Transcribe Date/Time: Sep 26 2024 2:10P Dictated by : MAUREEN PEARL MD This examination was interpreted and the report reviewed and electronically signed by: MAUREEN PEARL MD on Sep 26 2024 2:14PM EST [facility] Radiology Study observation (narrative) [facility] MR Brain WO and W contrast I VOrdered By: [facility] Provider on 09-26-2024 [facility] MRI BRAIN WO/W IVCONon 09-26 MRI BRAIN WO/W IVCON * * *Final Report* * * DATE OF EXAM: Sep 26 2024 12:29PM [facility] 0295 - MRI BRAIN WO/W IVCON [...] petrous ridge presumed meningioma compared to 03/02/2024. Parking Ramp Attendant: ALLYSSA Transcribe Date/Time: Sep 26 2024 2:10P Dictated by : MAUREEN PEARL MD This examination was interpreted and the report reviewed and electronically signed by: MAUREEN PEARL MD on Sep 26 2024 2:14PM EST [id number] Normal [facility] Laboratory - Microbiology an d Antimicrobial susceptibilityon 08-16-2024 SARS-CoV-2 (COVID-19) RNA MICHAEL+probe Ql (Unsp spec) Negative [facility] No Panel Informationon 08-16 FLU A Negative [facility] FLU B Negative [facility] Interpretation and review of laboratory results Normal [facility] XR Thoracic spine 3 Viewson 07-11-2024 [...] report is generated using voice recognition reporting ([employer]). On occasion [employer] erroneously drops words from the report or [...] report is generated using voice recognition reporting ([employer]). On occasion [employer] erroneously drops words from the report or replaces the spoken word with similar sounding words. Please call with any questions/concerns regarding this report.* Dictated and transcribed 07/11/2024/tm This report has been electronically signed and approved by the interpreting radiologist. Electronically Signed Shubham Almodovar II, M.D. 2024-07-11 10:01:04 [facility] Thoracic spine 3 ViewsOrd ered By: Shubham Almodovar on 07-11-2024 [employer] Work Phone: CALCIUMon 07-10-2024 Calcium [Mass/Vol] 9.5 mg/dL Normal 8.5-10.5 [facility] Comment on above: Performed By: #### 1 7861-6, THYR, 61238-4 #### [facility] ([id number]) [address], [address] [place] [address] THYROID PROFILEon 07-10-2024 Free T4 [Mass/Vol] 1.24 ng/dL Normal 0.61-1.60 [facility] Comment on above: Performed By: #### 1 7861-6, THYR, 30441-6 #### [facility] ([id number]) [address], [address] [place] [address] TSH 1.37 uIU/mL Normal 0.49-4.67 [facility] Comment on above: Performed By: #### 1 7861-6, THYR, 93480-2 #### [facility] ([id number]) [address], [address] [place] [address] Urinalysis macro (dipstick) panel (U)on 07-10-2024 Bilirubin, UA Negative Negative - 4(70) +++ mg/dL [facility] Blood, UA Positive Negative - 50 Darryl/mcL [facility] Clarity, UA Cloudy [facility] Color, UA Yellow [facility] Glucose, UA Negative Negative - 2000(110) ++++ mg/dL [facility] Interpretation and review of laboratory results Abnormal [facility] Ketones, UA Negative Negative - 160(16) ++++ mg/dL [facility] Leukocytes, UA 3+ Negative - 500+++ Obdulio/mcL [facility] Nitrite, UA Positive Negative - Positive [facility] pH, UA 6.5 5 - 9 [facility] Protein, UA 2+ Negative - 2000(20) ++++ mg/dL [facility] Spec Grav, UA 1.010 1 - 1.03 [facility] Urobilinogen, UA 1.0 0.2 - 12 mg/dL [facility] Vitamin D+Metabolites [Mass/ Vol]on 07-10-2024 VITAMIN D 25 HYD TOT 78.8 ng/mL Normal 30-100 [facility] Comment on above: Result Comment: Vitamin D status 25 [place] Vitamin D Deficiency <20 ng/mL Insufficiency 20-29 ng/mL Sufficiency 30-100 ng/mL Toxicity >100 ng/mL NOTE: A pediatric reference range has not been established by the ceramic tile installer of this kit. The [place] [employer] recommends a Vitamin D level of = or >20ng/mL in infants and children. Performed By: #### 1 7861-6, THYR, 10145-3 #### [facility] ([id number]) [address], [address] [place] [address] XR THORACIC SPINE 3 VIEWSon 07-10-2024 XR [...] report is generated using voice recognition reporting ([employer]). On occasion [employer] erroneously drops words from the report or replaces the spoken word with similar sounding words. Please call with any questions/concerns regarding this report.* Dictated and transcribed 07/11/2024/ This report has been electronically signed and approved by the interpreting radiologist. Electronically Signed Shubham Almodovar II, M.D. 2024-07-11 10:01:04 Normal Not Available XR Thoracic spine 3 Viewson 07-10-2024 Radiology Study observation (narrative) [facility] 04-04-2024 [facility] Office Visit ([facility] ) ANGELA RUTH ([id number]) 1945 F Date Time Provider Department 04/04/24 [...] Neuro- Oncology Center AND [facility] [place] CC: Patient Care Team: Bia Cao as PCP ([facility]) Corey Cahcon MD as NI Referring Team (Neurosurgery) ASSESSMENT: [...] 6 months with a repeat MRI scan ([place] preference) and clinic visit with one of our skull base team advance practice providers ([place] preference). - follow up with forest fire control officer for hearing loss which is unrelated to [...] Patient is accompanied by her granddaughter (her batch mixing truck driver) and great grand daughter). The [...] contrast and shows a 1.2 cm R HEALTH AND FITNESS INSTRUCTOR contrast-enhancing lesion concerning for either schwannoma or meningioma- no associated mass effect or edema. The patient takes ASA 81 mg daily for cardioprotection per her PCP. The patient has been using a cane for the last 5-6 years. The patient reports that ~6 weeks ago, she walked into her garage door and fell. The patient has not seen an forest fire control officer or a vestibular therapist. Past Medical History: [...] Units once (more content not included)... Normal [facility] Russ 03-24-2024 [facility] Telephone (NIQ) ANGELA RUTH ([id number]) 1945 F Date Time Provider Department 03/24/24 NEUROLOGY PROVIDER YOANDY During your visit today, we recorded the following information about you: Shelli Fletcher 03/24/2024 5:01 PM Signed Referral source: Corey Chacon MD ([facility]) Reason for visit: consideration of gamma knife for 1.2 cm enhancing lesion at right cerebelloponitine angle with leading differential including vestibular schwannoma and meningioma External records: Sent with referral and pulled from [facility] Triage: Required, forwarded to [facility] by telephone encounter sent to [facility] Scheduling Triage. Financial clearance: Not required to schedule Rose Velasquez APRN.[facility] 03/28/2024 10:00 AM Signed Time Frame: First available Provider: Kiko Landrum Soni Referring: Corey Chacon MD Images to be requested from [facility] Dx: Right CPA mass Patient: Angela Ruth Address: Angela Ruth [id number] [place] [address] [place] [address] Per Triage: HISTORY OF PRESENT ILLNESS Angela [...] extracranial soft tissues are unremarkable. Rose Velasquez APRN.DISTILLERY LABORER March 28, 2024 Etelvina Trujillo 03/28/2024 10:12 AM Signed Called patient to schedule an appointment. No ans/left message to call the office back. Appointment scheduled: 04/04/2024 10:30 AM (Arrive by 10:15 AM) Mandi Hoover MD [facility] RAMAN Alonso Janette 04/06/2024 10:40 AM Addendum Imaging requested from [facility]. DOS requested: MRI 03/02/2024 CT [...] Records [3576] Cmt: External referral to [facility] [place] triage [Other] Nurse Triage Call [185] Appointment [186] Primary Visit Diagnosis:Brain mass [G93.89] [G93.89] Prescriptions as of 04/06/2024 - hydrALAZINE (APRESOLINE) 100 mg tablet take 1 tablet by mouth twice a day then MAY TAKE ADDITIONAL (50 M... (REFER (more content not included)... Normal [facility] CT Abdomen/Pelvis w [...] by Felix Dominguez on 12/07/2022 1159 Normal [facility] Nylon Operator XR HAND LEFT (MIN 3 VIEWS)on 11-07-2022 [...] Matt Cowart MD 11/07/22 Final result Normal [facility] XR HAND LEFT (MIN 3 VIEWS) [...] Matt Cowart MD 11/07/22 Final result Normal [facility] XR Chest 2 Views*on 09-10-20 XR [...] by Bartolome Monson on 09/10/2022 [address] [facility] Specialist Complete Blood Count with Au to Diffon 12-11-2021 Basophils (Bld) [#/Vol] 0.07 10*3/uL Normal 0.00-0.20 [facility] Nylon Operator Comment on above: Performed By: #### C MP, CBCAD #### [facility] [address] [facility] [place], [place] [id number] Basophils/100 WBC (Bld) 0.9 % Normal [facility] Special[facility] Comment on above: Performed By: #### C MP, CBCAD #### [facility] [address] [place], [place] [id number] Eosinophils (Bld) [#/Vol] 0.17 10*3/uL Normal 0.02-0.[address] [facility] Special[facility] Comment on above: Performed By: #### C MP, CBCAD #### [facility] [address] [place], [place] [id number] Eosinophils/100 WBC (Bld) 2.3 % Normal [facility] Specialist Comment on above: Performed By: #### C MP, CBCAD #### [facility] [address] [place], [place] [id number] Erythrocyte distribution width (RBC) [Ratio] 16.4 % High 11.0-15.0 [facility] Nylon Operator Comment on above: Performed By: #### C MP, CBCAD #### [facility] [address] [place], [place] [id number] Hematocrit (Bld) [Volume fraction] 42.9 % Normal 35.0-47.0 [facility] Nylon Operator Comment on above: Performed By: #### C MP, CBCAD #### [facility] [address] [place], [place] [id number] Hemoglobin (Bld) [Mass/Vol] 13.5 g/dL Normal 11.6-15.5 [facility] Nylon Operator Comment on above: Performed By: #### C MP, CBCAD #### [facility] [address] [place], [place] [id number] Lymphocytes (Bld) [#/Vol] 2.7 10*3/uL Normal 0.9-3.[address] [facility] Special[facility] Comment on above: Performed By: #### C MP, CBCAD #### [facility] [address] [place], [place] [id number] Lymphocytes/100 WBC (Bld) 36.1 % Normal [facility] Nylon Operator Comment on above: Performed By: #### C MP, CBCAD #### [facility] [address] [place], [place] [id number] MCH (RBC) [Entitic mass] 27.7 pg Normal 27.0-33.[address] [facility] Special[facility] Comment on above: Performed By: #### C MP, CBCAD #### [facility] [address] [place], [place] [id number] MCHC (RBC) [Mass/Vol] 31.5 g/dL Low 32.0-36.0 [facility] Comment on above: Performed By: #### C MP, CBCAD #### [facility] [address] [place], [place] [id number] MCV (RBC) [Entitic vol] 88 fL Normal 80-[address] [facility] Special[facility] Comment on above: Performed By: #### C MP, CBCAD #### [facility] [address] [place], [place] [id number] Monocytes (Bld) [#/Vol] 0.8 10*3/uL Normal 0.2-0.[address] [facility] Special[facility] Comment on above: Performed By: #### C MP, CBCAD #### [facility] [address] [place], [place] [id number] Monocytes/100 WBC (Bld) 10.8 % Normal [facility] Comment on above: Performed By: #### C MP, CBCAD #### [facility] [address] [place], [place] [id number] Neutrophils (Bld) [#/Vol] 3.7 10*3/uL Normal 1.5-7.[address] [facility] Special[facility] Comment on above: Performed By: #### C MP, CBCAD #### [facility] [address] [place], [place] [id number] Neutrophils/100 WBC (Bld) 49.2 % Normal [facility] Special[facility] Comment on above: Performed By: #### C MP, CBCAD #### [facility] [address] [place], [place] [id number] Platelet mean volume (Bld) [Entitic vol] 11.00 fL Normal 7.50-12.50 [facility] Comment on above: Performed By: #### C MP, CBCAD #### [facility] [address] [place], [place] [id number] Platelets (Bld) [#/Vol] 246 10*3/uL Normal 140-[address] [facility] Specialist Comment on above: Performed By: #### C LG, CBCAD #### [facility] [address] [place], [place] [id number] RBC (Bld) [#/Vol] 4.88 10*6/uL Normal 3.90-5.20 [facility] Specialist Comment on above: Performed By: #### C LG, CBCAD #### [facility] [address] [place], [place] [id number] RDW-SD 53.1 fL High 37.0-50.[address] [facility] Special[facility] Comment on above: Performed By: #### C LG, CBCAD #### [facility] [address] [place], [place] [id number] WBC (Bld) [#/Vol] 7.5 10*3/uL Normal 3.8-11.0 [facility] Nylon Operator Comment on above: Performed By: #### C LG, CBCAD #### [facility] [address] [place], [place] [id number] Comprehensive Metabolic Pane [facility] 12-11-2021 Albumin [Mass/Vol] 4.2 g/dL Normal 3.6-5.1 [facility] Comment on above: Performed By: #### C LG, CBCAD #### [facility] [address] [place], [place] [id number] Albumin/Globulin [Mass ratio] 1.7 {ratio} Normal 1.0-2.[address] [facility] Special[facility] Comment on above: Performed By: #### C LG, CBCAD #### [facility] [address] [place], [place] [id number] ALP [Catalytic activity/Vol] 71 U/L Normal 35-[address] [facility] Special[facility] Comment on above: Performed By: #### C LG, CBCAD #### [facility] [address] [place], [place] [id number] ALT [Catalytic activity/Vol] 12 U/L Normal 6-[address] [facility] Special[facility] Comment on above: Result Comment: 10/22 Female reference range changed. Performed By: #### C LG CBCAD #### [facility] [address] [place], [place] [id number] Anion gap [Moles/Vol] 18 mmol/L Normal 12-20 [facility] Comment on above: Result Comment: Lidia ctive 11/27/2019 reference range changed. Performed By: #### C MP, CBCAD #### [facility] [address] [place], [place] [id number] AST [Catalytic activity/Vol] 15 U/L Normal 9-34 [facility] Comment on above: Performed By: #### C MP, CBCAD #### [facility] [address] [place], [place] [id number] Bilirubin [Mass/Vol] 0.33 mg/dL Normal 0.30-1.20 [facility] Comment on above: Performed By: #### C MP, CBCAD #### [facility] [address] [place], [place] [id number] BUN/CREA 35 Ratio High 6-22 [facility] Comment on above: Performed By: #### C MP, CBCAD #### [facility] [address] [place], [place] [id number] Calcium [Mass/Vol] 9.4 mg/dL Normal 8.6-10.2 [facility] Comment on above: Performed By: #### C MP, CBCAD #### [facility] [address] [place], [place] [id number] Chloride [Moles/Vol] 106 mmol/L Normal 98-107 [facility] Comment on above: Performed By: #### C MP, CBCAD #### [facility] [address] [place], [place] [id number] CO2 [Moles/Vol] 24 mmol/L Normal 20-31 [facility] Comment on above: Performed By: #### C MP, CBCAD #### [facility] [address] [place], [place] [id number] Creatinine [Mass/Vol] 0.9 mg/dL Normal 0.6-1.4 [facility] Comment on above: Performed By: #### C MP, CBCAD #### [facility] [address] [place], [place] [id number] eGFRAA 70 mL/min/1.73m2 Normal >60 [facility] Nylon Operator Comment on above: Performed By: #### C MP, CBCAD #### [facility] [address] [place], [place] [id number] eGFRNAA 58 mL/min/1.73m2 Low >[address] [facility] Specialist Comment on above: Performed By: #### C MP, CBCAD #### [facility] [address] [place], [place] [id number] Globulin (S) [Mass/Vol] 2.5 g/dL Normal 1.9-3.7 [facility] Nylon Operator Comment on above: Performed By: #### C MP, CBCAD #### [facility] [address] [place], [place] [id number] Glucose [Mass/Vol] 84 mg/dL Normal 65-99 [facility] Nylon Operator Comment on above: Result Comment: For FASTING Glucose --- ADA reference ranges: Normal 65-99 mg/dl Prediabetes 100-125 Diabetes >/= 126 Performed By: #### C MP, CBCAD #### [facility] [address] [place], [place] [id number] Potassium [Moles/Vol] 4.3 mmol/L Normal 3.5-5.5 [facility] Comment on above: Performed By: #### C MP, CBCAD #### [facility] [address] [place], [place] [id number] Protein [Mass/Vol] 6.7 g/dL Normal 6.1-8.1 [facility] Nylon Operator Comment on above: Performed By: #### C MP, CBCAD #### [facility] [address] [place], [place] [id number] Sodium [Moles/Vol] 143 mmol/L Normal 135-146 [facility] Nylon Operator Comment on above: Performed By: #### C MP, CBCAD #### [facility] [address] [place], [place] [id number] Urea nitrogen [Mass/Vol] 33 mg/dL High 7-25 [facility] Nylon Operator Comment on above: Performed By: #### C MP, CBCAD #### [facility] [address] [place], [place] [id number] Calciumon 07-30-2019 Calcium [Mass/Vol] 10.0 mg/dL Normal 8.4-10.2 [facility] Comment on above: Performed By: #### 1 030, 1035, 4500, 4510, 4520, 4581 #### [facility] Unless Otherwise Noted [address] [address] / COLA #4724/CLIA # [id number] Creatinineon 06-20-2019 Creatinine [Mass/Vol] 0.9 mg/dL Normal 0.5-1.0 [facility] Comment on above: Performed By: #### 1 030, 1035, 4500, 4510, 4520, 4581 #### [facility] Unless Otherwise Noted [address] [address] / COLA #4724/CLIA # [id number] Creatinine [Mass/Vol] 74.8 Kg Normal [facility] Comment on above: Performed By: #### 1 030, 1035, 4500, 4510, 4520, 4581 #### [facility] Unless Otherwise Noted [address] [address] / COLA #4724/CLIA # [id number] Creatinine [Mass/Vol] 64.8 ml/m1.73 Normal [facility] Comment on above: Performed By: #### 1 030, 1035, 4500, 4510, 4520, 4581 #### [facility] Unless Otherwise Noted [address] [address] / COLA #4724/CLIA # [id number] Creatinine [Mass/Vol] 65.1 ml/m1.[address] [facility] Comment on above: Performed By: #### 1 030, 1035, 4500, 4510, 4520, 4581 #### [facility] Unless Otherwise Noted [address] [address] / COLA #4724/CLIA # [id number] Creatinine [Mass/Vol] 78.7 ml/m1.[address] [facility] Comment on above: Performed By: #### 1 030, 1035, 4500, 4510, 4520, 4581 #### [facility] Unless Otherwise Noted [address] [address] / COLA #4724/CLIA # [id number] FT3on 06-20-2019 FT3 2.80 pg/mL Normal 2.45-5.93 [facility] Comment on above: Performed By: #### 1 030, 1035, 4500, 4510, 4520, 4581 #### [facility] Unless Otherwise Noted [address] [address] / COLA #4724/CLIA # [id number] FT4on 06-20-2019 Free T4 [Mass/Vol] 1.93 ng/dL Normal 0.78-2.44 [facility] Comment on above: Performed By: #### 1 030, 1035, 4500, 4510, 4520, 4581 #### [facility] Unless Otherwise Noted [address] [address] / COLA #4724/CLIA # [id number] TSHon 06-20-2019 TSH Qn 0.57 uIU/ml Normal 0.47-4.68 [facility] Comment on above: Performed By: #### 1 030, 1035, 4500, 4510, 4520, 4581 #### [facility] Unless Otherwise Noted [address] [facility] [address] [place] [address] / COLA #4724/CLIA # [id number] VITAMIN D 25on 06-20-2019 VITAMIN D 25 51.5 ng/ml Normal 30.0-100.0 [facility] Comment on above: Result Comment: Defi cient <20 Insufficient 20-<30 Sufficient 30-100 Potiential Toxicity >100 Performed By: #### 1 030, 1035, 4500, 4510, 4520, 4581 #### [facility] Unless Otherwise Noted [address] [facility] 100 [place] [address] / COLA #4724/CLIA # [id number] Basic Metabolic Profon 05-06 (cont.) Normal [facility] Comment on above: Result Comment: Aver age GFR for 70 or more years old: 75 mL/min/1.73sq mChronic Kidney Disease: <60 mL/min/1.73sq mKidney failure: <15 mL/min/1.73sq meGFR calculated using average adult body mass. Additional eGFR calculator available at:http://www.eShares/multiple_crcl_2012.htmPerformed at [facility] [address] [place] [address] Performed By: #### C DP, BMP ####[facility] [place] [address] Anion gap 14 mmol/L Normal 9-17 [facility] Comment on above: Performed By: #### C DP, BMP ####[facility] [facility] [place] [address] Calcium 9.6 mg/dL Normal 8.6-10.4 [facility] Comment on above: Performed By: #### C DP, BMP ####[facility] [facility] [place] [address] Chloride 106 mmol/L Normal 98-107 [facility] Comment on above: Performed By: #### C DP, BMP ####[facility] [place], [place] [address]j[place] [address] CO2 26 mmol/L Normal 20-31 [facility] Comment on above: Performed By: #### C DP, BMP ####[facility] [place] [address].[place] [address] Creatinine 0.91 mg/dL High 0.50-0.90 [facility] Comment on above: Performed By: #### C DP, BMP ####[address] [place] [address] eGFR (non-black) mL/min/{1.73_m2} Normal >60 [facility] Comment on above: Performed By: #### C DP, BMP ####[facility] [place] [address].[place] [address] Glucose mass conc 99 mg/dL Normal 70-99 [facility] Comment on above: Performed By: #### C DP, BMP ####[facility] [place] [address] Potassium molar conc 4.2 mmol/L Normal 3.7-5.3 [facility] Comment on above: Performed By: #### C DP, BMP ####[facility] [place] [address] Sodium 146 mmol/L High 135-144 [facility] Comment on above: Performed By: #### C DP, BMP ####[facility] [place] [address].[place] [address] Urea nitrogen 21 mg/dL Normal 8-23 [facility] Comment on above: Performed By: #### C DP, BMP ####[facility] [facility] [place] [address] BUN/CRE Ratio NOT REPORTED Normal 9-20 [facility] Comment on above: Performed By: #### C DP, BMP ####[facility] [place] [address] Staging: NOT REPORTED Normal [facility] Comment on above: Performed By: #### C DP, BMP ####[facility] [place] [address] CBC with Diffon 05-06-2018 Abs. Basophil 0.10 k/uL Normal 0.0-0.2 [facility] Comment on above: Result Comment: Perf ormed at [facility] [address] [place] [address] Performed By: #### C DP, BMP ####[facility] [place] [address] Abs.Neutrophil (Seg) 4.00 k/uL Normal 1.3-9.1 [facility] Comment on above: Performed By: #### C DP, BMP ####[facility] [place] [address] Basophils/100 WBC Auto (Bld) 1 % Normal 0-2 [facility] Comment on above: Performed By: #### C DP, BMP ####[facility] [place] [address] Eosinophils 0.20 10*3/uL Normal 0.0-0.4 [facility] Comment on above: Performed By: #### C DP, BMP ####[facility] [place] [address] Eosinophils/100 leukocytes 2 % Normal 0-4 [facility] Comment on above: Performed By: #### C DP, BMP ####[facility] [place] [address].[place] [address] Erythrocyte distribution width Auto Ratio (RBC) 13.9 % Normal 11.5-14.9 [facility] Comment on above: Performed By: #### C DP, BMP ####[facility] [place] [address] Erythrocytes (RBC) 4.68 10*6/uL Normal 4.0-5.2 [facility] Comment on above: Performed By: #### C DP, BMP ####[address] [address] Hematocrit (HCT) 41.8 % Normal 36-46 [facility] Comment on above: Performed By: #### C DP, BMP ####[address] [address] Hemoglobin mass conc (Bld) 13.7 g/dL Normal 12.0-16.0 [facility] Comment on above: Performed By: #### C DP, BMP ####[address] [address] Lymphocytes 3.20 10*3/uL Normal 1.0-4.8 [facility] Comment on above: Performed By: #### C DP, BMP ####[address] [address] Lymphocytes/100 leukocytes 39 % Normal 24-44 [facility] Comment on above: Performed By: #### C DP, BMP ####[address] [address] MCH 29.3 pg Normal 26-34 [facility] Comment on above: Performed By: #### C DP, BMP ####[address] [address] MCHC mass conc (RBC) 32.8 g/dL Normal 31-37 [facility] Comment on above: Performed By: #### C DP, BMP ####[facility] [place] [address] MCV 89.3 fL Normal 80-100 [facility] Comment on above: Performed By: #### C DP, BMP ####[facility] [place] [address] Monocytes 0.90 10*3/uL Normal 0.1-1.3 [facility] Comment on above: Performed By: #### C DP, BMP ####[facility] [place] [address] Monocytes/100 leukocytes 11 % High 1-7 [facility] Comment on above: Performed By: #### C DP, BMP ####[facility] [place] [address] Neutrophil (Seg) 47 % Normal 36-66 [facility] Comment on above: Performed By: #### C DP, BMP ####[facility] [place] [address] Platelet mean volume (PMV) 10.3 fL Normal 6.0-12.0 [facility] Comment on above: Performed By: #### C DP, BMP ####[facility] [place] [address] Platelets 232 10*3/uL Normal 150-450 [facility] Comment on above: Performed By: #### C DP, BMP ####[facility] [place], [place] [address]j[place] [address] WBC (Leukocytes) 8.4 10*3/uL Normal 3.5-11.0 [facility] Comment on above: Performed By: #### C DP, BMP ####[facility] [facility] [place] [address] Auto Diff Performed NOT REPORTED Normal [facility] Comment on above: Performed By: #### C DP, BMP ####[facility] [facility] [place] [address] Erythrocyte morphology NOT REPORTED Normal [facility] Comment on above: Performed By: #### C DP, BMP ####[facility] [place] [address] Erythrocytes (RBC) NOT REPORTED Normal [facility] Comment on above: Performed By: #### C DP, BMP ####[facility] [place] [address].[place] [address] Granulocytes/100 WBC (Bld) NOT REPORTED Normal 0.00-0.30 [facility] Comment on above: Performed By: #### C DP, BMP ####[facility] [place] [address].[place] [address] Immature granulocytes #/vol (Bld) NOT REPORTED Normal 0 [facility] Comment on above: Performed By: #### C DP, BMP ####[facility] [place] [address].[place] [address] Platelets NOT REPORTED Normal [facility] Comment on above: Performed By: #### C DP, BMP ####[facility] [place] [address].[place] [address] WBC Morphology NOT REPORTED Normal [facility] Comment on above: Performed By: #### C DP, BMP ####[address] [place] [address] Vital Signs Date Time Vital Sign Value Performing Clinician Facility 06-13-2025 13:57-0400 Body height 157.5 cm Randall WILKINSON Work Phone: [facility] 06-13-2025 13:57-0400 Body mass index (BMI) [Ratio] 25.6 kg/m2 Randall WILKINSON Work Phone: [facility] 06-13-2025 13:57-0400 Body weight 63.5 kg Randall WILKINSON Work Phone: [facility] 06-13-2025 13:57-0400 Diastolic blood pressure 62 mm[Hg] Randall WILKINSON Work Phone: [facility] 06-13-2025 13:57-0400 Heart rate 74 /min Randall WILKINSON Work Phone: [facility] 06-13-2025 13:57-0400 Systolic blood pressure 103 mm[Hg] Randall WILKINSON Work Phone: [facility] 06-13-2025 12:30-0400 Body height 157.5 cm Pfo 1 [facility] 06-13-2025 12:30-0400 Body mass index (BMI) [Ratio] 25.71 kg/m2 Pfo 1 [facility] 06-13-2025 12:30-0400 Body temperature 97.5 [degF] Pfo 1 [facility] 06-13-2025 12:30-0400 Body weight 63.78 kg Pfo 1 [facility] 06-13-2025 12:30-0400 Diastolic blood pressure 46 mm[Hg] Pfo 1 [facility] 06-13-2025 12:30-0400 Heart rate 68 /min Pfo 1 [facility] 06-13-2025 12:30-0400 Respiratory rate 16 /min Pfo 1 [facility] 06-13-2025 12:30-0400 SaO2% (BldA) [Mass fraction] 98 % Pfo 1 [facility] 06-13-2025 12:30-0400 Systolic blood pressure 133 mm[Hg] Pfo 1 [facility] 05-16-2025 10:10-0400 Body height 157.5 cm Pfo 1 [facility] 05-16-2025 10:10-0400 Body mass index (BMI) [Ratio] 25.86 kg/m2 Pfo 1 [facility] 05-16-2025 10:10-0400 Body temperature 97.81 [degF] Pfo 1 [facility] 05-16-2025 10:10-0400 Body weight 64.14 kg Pfo 1 [facility] 05-16-2025 10:10-0400 Diastolic blood pressure 59 mm[Hg] Pfo 1 [facility] 05-16-2025 10:10-0400 Heart rate 77 /min Pfo 1 [facility] 05-16-2025 10:10-0400 Respiratory rate 16 /min Pfo 1 [facility] 05-16-2025 10:10-0400 SaO2% (BldA) [Mass fraction] 98 % Pfo 1 [facility] 05-16-2025 10:10-0400 Systolic blood pressure 145 mm[Hg] Pfo 1 [facility] 04-18-2025 13:24-0400 Body height 157.5 cm John Johnson MD Work Phone: [facility] 04-18-2025 13:24-0400 Body mass index (BMI) [Ratio] 26.31 kg/m2 John Johnson MD Work Phone: [facility] 04-18-2025 13:24-0400 Body weight 65.27 kg John Johnson MD Work Phone: [facility] 04-18-2025 13:24-0400 Diastolic blood pressure 68 mm[Hg] John Johnson MD Work Phone: [facility] 04-18-2025 13:24-0400 Heart rate 73 /min John Johnson MD Work Phone: [facility] 04-18-2025 13:24-0400 Systolic blood pressure 114 mm[Hg] John Johnson MD Work Phone: [facility] 04-18-2025 10:18-0400 Body height 157.5 cm Pfo 1 [facility] 04-18-2025 10:18-0400 Body mass index (BMI) [Ratio] 26.48 kg/m2 Pfo 1 [facility] 04-18-2025 10:18-0400 Body temperature 98.1 [degF] Pfo 1 [facility] 04-18-2025 10:18-0400 Body weight 65.68 kg Pfo 1 [facility] 04-18-2025 10:18-0400 Diastolic blood pressure 51 mm[Hg] Pfo 1 [facility] 04-18-2025 10:18-0400 Heart rate 77 /min Pfo 1 [facility] 04-18-2025 10:18-0400 Respiratory rate 15 /min Pfo 1 [facility] 04-18-2025 10:18-0400 SaO2% (BldA) [Mass fraction] 96 % Pfo 1 [facility] 04-18-2025 10:18-0400 Systolic blood pressure 126 mm[Hg] Pfo 1 [facility] 04-09-2025 13:33-0400 Body height 160 cm Bia Cao MD Work Phone: [facility] 04-09-2025 13:33-0400 Body mass index (BMI) [Ratio] 25.86 kg/m2 Bia Cao MD Work Phone: [facility] 04-09-2025 13:33-0400 Body weight 66.22 kg Bia Cao MD Work Phone: [facility] 04-09-2025 13:33-0400 Diastolic blood pressure 62 mm[Hg] Bia Cao MD Work Phone: [facility] 04-09-2025 13:33-0400 Heart rate 75 /min Bia Cao MD Work Phone: [facility] 04-09-2025 13:33-0400 Respiratory rate 18 /min Bia Cao MD Work Phone: [facility] 04-09-2025 13:33-0400 SaO2% (BldA) [Mass fraction] 96 % Bia Cao MD Work Phone: [facility] 04-09-2025 13:33-0400 Systolic blood pressure 124 mm[Hg] Bia Cao MD Work Phone: [facility] 03-21-2025 10:37-0400 Body height 157.5 cm Pfo 1 [facility] 03-21-2025 10:37-0400 Body mass index (BMI) [Ratio] 26.95 kg/m2 Pfo 1 [facility] 03-21-2025 10:37-0400 Body temperature 97.81 [degF] Pfo 1 [facility] 03-21-2025 10:37-0400 Body weight 66.86 kg Pfo 1 [facility] 03-21-2025 10:37-0400 Diastolic blood pressure 62 mm[Hg] Pfo 1 [facility] 03-21-2025 10:37-0400 Heart rate 63 /min Pfo 1 [facility] 03-21-2025 10:37-0400 Respiratory rate 15 /min Pfo 1 [facility] 03-21-2025 10:37-0400 SaO2% (BldA) [Mass fraction] 99 % Pfo 1 [facility] 03-21-2025 10:37-0400 Systolic blood pressure 149 mm[Hg] Pfo 1 [facility] 02-27-2025 14:30-0400 Body height 157.5 cm Randall WILKINSON Work Phone: [facility] 02-27-2025 14:30-0400 Body mass index (BMI) [Ratio] 26.89 kg/m2 Randall WILKINSON Work Phone: [facility] 02-27-2025 14:30-0400 Body weight 66.68 kg Randall WILKINSON Work Phone: [facility] 02-27-2025 14:30-0400 Diastolic blood pressure 59 mm[Hg] Randall WILKINSON Work Phone: [facility] 02-27-2025 14:30-0400 Heart rate 85 /min Randall WILKINSON Work Phone: [facility] 02-27-2025 14:30-0400 Systolic blood pressure 97 mm[Hg] Randall WILKINSON Work Phone: [facility] 02-16-2025 13:05-0400 Body height 157.5 cm Pfo 1 [facility] 02-16-2025 13:05-0400 Body mass index (BMI) [Ratio] 27.03 kg/m2 Pfo 1 [facility] 02-16-2025 13:05-0400 Body temperature 98.4 [degF] Pfo 1 [facility] 02-16-2025 13:05-0400 Body weight 67.04 kg Pfo 1 [facility] 02-16-2025 13:05-0400 Diastolic blood pressure 49 mm[Hg] Pfo 1 [facility] 02-16-2025 13:05-0400 Heart rate 85 /min Pfo 1 [facility] 02-16-2025 13:05-0400 Respiratory rate 18 /min Pfo 1 [facility] 02-16-2025 13:05-0400 SaO2% (BldA) [Mass fraction] 96 % Pfo 1 [facility] 02-16-2025 13:05-0400 Systolic blood pressure 123 mm[Hg] Pfo 1 [facility] 02-12-2025 08:08-0400 Body height 157.5 cm Yoanna Dorsey APRN-DISTILLERY LABORER Work Phone: [facility] 02-12-2025 08:08-0400 Body mass index (BMI) [Ratio] 27.22 kg/m2 Yoanna Dorsey APRN-DISTILLERY LABORER Work Phone: [facility] 02-12-2025 08:08-0400 Body weight 67.5 kg Yoanna Dorsey BEET [employer] SUPERVISOR-[employer]ERY LABORER Work Phone: [facility] 02-12-2025 08:08-0400 Diastolic blood pressure 78 mm[Hg] Yoanna Willian BEET END SUPERVISOR-[employer]ERY LABORER Work Phone: [facility] 02-12-2025 08:08-0400 Heart rate 77 /min Yoanna Dorsey BEET END SUPERVISOR-DISTILLERY LABORER Work Phone: [facility] 02-12-2025 08:08-0400 Systolic blood pressure 116 mm[Hg] Yoanna Dorsey BEET END SUPERVISOR-DISTILLERY LABORER Work Phone: [facility] 01-23-2025 16:22-0500 Body height 160 cm Bia Cao MD Work Phone: [facility] 01-23-2025 16:22-0500 Body mass index (BMI) [Ratio] 25.37 kg/m2 Bia Cao MD Work Phone: [facility] 01-23-2025 16:22-0500 Body temperature 97.39 [degF] Bia Cao MD Work Phone: [facility] 01-23-2025 16:22-0500 Body weight 64.95 kg Bia Cao MD Work Phone: [facility] 01-23-2025 16:22-0500 Diastolic blood pressure 74 mm[Hg] Bia Cao MD Work Phone: [facility] 01-23-2025 16:22-0500 Heart rate 87 /min Bia Cao MD Work Phone: [facility] 01-23-2025 16:22-0500 Respiratory rate 18 /min Bia Cao MD Work Phone: [facility] 01-23-2025 16:22-0500 SaO2% (BldA) [Mass fraction] 96 % Bia Cao MD Work Phone: [facility] 01-23-2025 16:22-0500 Systolic blood pressure 122 mm[Hg] Bia Cao MD Work Phone: [facility] 01-15-2025 14:20-0500 Body height 160 cm Bia Cao MD Work Phone: [facility] 01-15-2025 14:20-0500 Body mass index (BMI) [Ratio] 26.04 kg/m2 Bia Cao MD Work Phone: [facility] 01-15-2025 14:20-0500 Body weight 66.68 kg Bia Cao MD Work Phone: [facility] 01-15-2025 14:20-0500 Diastolic blood pressure 66 mm[Hg] Bia Cao MD Work Phone: [facility] 01-15-2025 14:20-0500 Heart rate 86 /min Bia Cao MD Work Phone: [facility] 01-15-2025 14:20-0500 Respiratory rate 18 /min Bia Cao MD Work Phone: [facility] 01-15-2025 14:20-0500 SaO2% (BldA) [Mass fraction] 94 % Bia Cao MD Work Phone: [facility] 01-15-2025 14:20-0500 Systolic blood pressure 130 mm[Hg] Bia Cao MD Work Phone: [facility] 01-12-2025 12:54-0500 Body height 160 cm Pfo 1 [facility] 01-12-2025 12:54-0500 Body mass index (BMI) [Ratio] 26.22 kg/m2 Pfo 1 [facility] 01-12-2025 12:54-0500 Body temperature 98.6 [degF] Pfo 1 [facility] 01-12-2025 12:54-0500 Body weight 67.13 kg Pfo 1 [facility] 01-12-2025 12:54-0500 Diastolic blood pressure 54 mm[Hg] Pfo 1 [facility] 01-12-2025 12:54-0500 Heart rate 82 /min Pfo 1 [facility] 01-12-2025 12:54-0500 Respiratory rate 16 /min Pfo 1 [facility] 01-12-2025 12:54-0500 SaO2% (BldA) [Mass fraction] 96 % Pfo 1 [facility] 01-12-2025 12:54-0500 Systolic blood pressure 107 mm[Hg] Pfo 1 [facility] 01-11-2025 15:07-0500 Body height 160 cm Pfo 1 [facility] 01-11-2025 15:07-0500 Body mass index (BMI) [Ratio] 26.22 kg/m2 Pfo 1 [facility] 01-11-2025 15:07-0500 Body temperature 97.11 [degF] Pfo 1 [facility] 01-11-2025 15:07-0500 Body weight 67.13 kg Pfo 1 [facility] 01-11-2025 15:07-0500 Diastolic blood pressure 85 mm[Hg] Pfo 1 [facility] 01-11-2025 15:07-0500 Heart rate 83 /min Pfo 1 [facility] 01-11-2025 15:07-0500 Respiratory rate 16 /min Pfo 1 [facility] 01-11-2025 15:07-0500 SaO2% (BldA) [Mass fraction] 96 % Pfo 1 [facility] 01-11-2025 15:07-0500 Systolic blood pressure 140 mm[Hg] Pfo 1 [facility] 01-09-2025 13:53-0500 Body height 160 cm Katerin Alvarado MD Work Phone: [facility] 01-09-2025 13:53-0500 Body mass index (BMI) [Ratio] 26.57 kg/m2 Katerin Alvarado MD Work Phone: [facility] 01-09-2025 13:53-0500 Body weight 68.04 kg Katerin Alvarado MD Work Phone: [facility] 01-09-2025 13:53-0500 Diastolic blood pressure 62 mm[Hg] Katerin Alvarado MD Work Phone: [facility] 01-09-2025 13:53-0500 Heart rate 87 /min Katerin Alvarado MD Work Phone: [facility] 01-09-2025 13:53-0500 Systolic blood pressure 108 mm[Hg] Katerin Alvarado MD Work Phone: [facility] 12-26-2024 09:30-0500 Body height 160 cm Bia Cao MD Work Phone: [facility] 12-26-2024 09:30-0500 Body mass index (BMI) [Ratio] 26.57 kg/m2 Bia Cao MD Work Phone: [facility] 12-26-2024 09:30-0500 Body weight 68.04 kg Bia Cao MD Work Phone: [facility] 12-26-2024 09:30-0500 Diastolic blood pressure 74 mm[Hg] Bia Cao MD Work Phone: [facility] 12-26-2024 09:30-0500 Heart rate 85 /min Bia Cao MD Work Phone: [facility] 12-26-2024 09:30-0500 Respiratory rate 18 /min Bia Cao MD Work Phone: [facility] 12-26-2024 09:30-0500 SaO2% (BldA) [Mass fraction] 97 % Bia Cao MD Work Phone: [facility] 12-26-2024 09:30-0500 Systolic blood pressure 122 mm[Hg] Bia Cao MD Work Phone: [facility] 12-19-2024 13:03-0500 Body height 160 cm Maria C Kramer MD Work Phone: [facility] 12-19-2024 13:03-0500 Body mass index (BMI) [Ratio] 26.39 kg/m2 Maria C Kramer MD Work Phone: [facility] 12-19-2024 13:03-0500 Body weight 67.59 kg Maria C Kramer MD Work Phone: [facility] 12-19-2024 13:03-0500 Diastolic blood pressure 87 mm[Hg] Maria C Kramer MD Work Phone: [facility] 12-19-2024 13:03-0500 Heart rate 86 /min Maria C Kramer MD Work Phone: [facility] 12-19-2024 13:03-0500 Systolic blood pressure 162 mm[Hg] Maria C Kramer MD Work Phone: [facility] 12-08-2024 11:49-0500 Body height 160 cm Bia Cao MD Work Phone: [facility] 12-08-2024 11:49-0500 Body mass index (BMI) [Ratio] 26.18 kg/m2 Bia Cao MD Work Phone: [facility] 12-08-2024 11:49-0500 Body weight 67.04 kg Bia Cao MD Work Phone: [facility] 12-08-2024 11:49-0500 Diastolic blood pressure 76 mm[Hg] Bia Cao MD Work Phone: [facility] 12-08-2024 11:49-0500 Heart rate 79 /min Bia Cao MD Work Phone: [facility] 12-08-2024 11:49-0500 SaO2% (BldA) [Mass fraction] 93 % Bia Cao MD Work Phone: [facility] 12-08-2024 11:49-0500 Systolic blood pressure 128 mm[Hg] Bia Cao MD Work Phone: [facility] 12-06-2024 11:48-0500 Body mass index (BMI) [Ratio] 26.55 kg/m2 John Johnson MD Work Phone: [facility] 12-06-2024 11:48-0500 Body weight 67.99 kg John Johnson MD Work Phone: [facility] 12-06-2024 11:48-0500 Diastolic blood pressure 70 mm[Hg] John Johnson MD Work Phone: [facility] 12-06-2024 11:48-0500 Heart rate 87 /min John Johnson MD Work Phone: [facility] 12-06-2024 11:48-0500 Systolic blood pressure 117 mm[Hg] John Johnson MD Work Phone: [facility] 10-30-2024 13:39-0500 Body height 160 cm Santo Christianson DPM Work Phone: [facility] 10-30-2024 13:39-0500 Body mass index (BMI) [Ratio] 26.18 kg/m2 Santo Christianson DPM Work Phone: [facility] 10-30-2024 13:39-0500 Body weight 67.04 kg Santo Christianson DPM Work Phone: [facility] 09-26-2024 13:39-0500 Body mass index (BMI) [Ratio] 26.17 kg/m2 Rose Velasquez BEET END SUPERVISOR.DISTILLERY LABORER Work Phone: [facility] 09-26-2024 13:39-0500 Body weight 67 kg Rose Velasquez BEET END SUPERVISOR.DISTILLERY LABORER Work Phone: [facility] 09-26-2024 13:39-0500 Diastolic blood pressure 81 mm[Hg] Rose Velasquez APRN.DISTILLERY LABORER Work Phone: [facility] 09-26-2024 13:39-0500 Heart rate 91 /min Rose Velasquez APRN.DISTILLERY LABORER Work Phone: [facility] 09-26-2024 13:39-0500 SaO2% (BldA) [Mass fraction] 96 % Rose Velasquez BEET END SUPERVISOR.DISTILLERY LABORER Work Phone: [facility] 09-26-2024 13:39-0500 Systolic blood pressure 143 mm[Hg] Rose Velasquez APRN.DISTILLERY LABORER Work Phone: [facility] 08-14-2024 15:57-0400 Body height 160 cm Bia Cao MD Work Phone: [facility] 08-14-2024 15:57-0400 Body mass index (BMI) [Ratio] 26.18 kg/m2 Bia Cao MD Work Phone: [facility] 08-14-2024 15:57-0400 Body weight 67.04 kg Bia Cao MD Work Phone: [facility] 08-14-2024 15:57-0400 Diastolic blood pressure 88 mm[Hg] Bia Cao MD Work Phone: [facility] 08-14-2024 15:57-0400 Heart rate 88 /min Bia Cao MD Work Phone: [facility] 08-14-2024 15:57-0400 SaO2% (BldA) [Mass fraction] 95 % Bia Cao MD Work Phone: [facility] 08-14-2024 15:57-0400 Systolic blood pressure 148 mm[Hg] Bia Cao MD Work Phone: [facility] 08-08-2024 11:40-0400 Body height 160 cm Bia Cao MD Work Phone: [facility] 08-08-2024 11:40-0400 Body mass index (BMI) [Ratio] 26.43 kg/m2 Bia Cao MD Work Phone: [facility] 08-08-2024 11:40-0400 Body weight 67.68 kg Bia Cao MD Work Phone: [facility] 08-08-2024 11:40-0400 Diastolic blood pressure 84 mm[Hg] Bia Cao MD Work Phone: [facility] 08-08-2024 11:40-0400 Heart rate 77 /min Bia Cao MD Work Phone: [facility] 08-08-2024 11:40-0400 Respiratory rate 20 /min Bia Cao MD Work Phone: [facility] 08-08-2024 11:40-0400 SaO2% (BldA) [Mass fraction] 97 % Bia Cao MD Work Phone: [facility] 08-08-2024 11:40-0400 Systolic blood pressure 136 mm[Hg] Bia Cao MD Work Phone: [facility] 07-10-2024 15:39-0400 Body height 160 cm Bia Cao MD Work Phone: [facility] 07-10-2024 15:39-0400 Body mass index (BMI) [Ratio] 27.1 kg/m2 Bia Cao MD Work Phone: [facility] 07-10-2024 15:39-0400 Body weight 69.4 kg Bia Cao MD Work Phone: [facility] 07-10-2024 15:39-0400 Diastolic blood pressure 72 mm[Hg] Bia Cao MD Work Phone: [facility] 07-10-2024 15:39-0400 Heart rate 90 /min Bia Cao MD Work Phone: [facility] 07-10-2024 15:39-0400 Respiratory rate 18 /min Bia Cao MD Work Phone: [facility] 07-10-2024 15:39-0400 SaO2% (BldA) [Mass fraction] 97 % Bia Cao MD Work Phone: [facility] 07-10-2024 15:39-0400 Systolic blood pressure 126 mm[Hg] Bia Cao MD Work Phone: [facility] 04-04-2024 11:29-0400 Body height 160 cm Mandi Hoover MD Work Phone: [facility] 04-04-2024 11:29-0400 Body mass index (BMI) [Ratio] 27.18 kg/m2 Mandi Hoover MD Work Phone: [facility] 04-04-2024 11:29-0400 Body temperature 97.7 [degF] Mandi Hoover MD Work Phone: [facility] 04-04-2024 11:29-0400 Body weight 69.6 kg Mandi Hoover MD Work Phone: [facility] 04-04-2024 11:29-0400 Diastolic blood pressure 65 mm[Hg] Mandi Hoover MD Work Phone: [facility] 04-04-2024 11:29-0400 Heart rate 80 /min Mandi Hoover MD Work Phone: [facility] 04-04-2024 11:29-0400 Respiratory rate 18 /min Mandi Hoover MD Work Phone: [facility] 04-04-2024 11:29-0400 SaO2% (BldA) [Mass fraction] 96 % Mandi Hoover MD Work Phone: [facility] 04-04-2024 11:29-0400 Systolic blood pressure 105 mm[Hg] Mandi Hoover MD Work Phone: [facility] Encounters Encounter Date Encounter Type Care Provider Facility Start: 06-26-2025 End: 06-26-2025 Telephone encounter Bia Cao MD Work Phone: [facility] Start: 06-19-2025 End: 06-19-2025 Refill Tae Hardy NP Work Phone: [facility] Comment on above: Primary insomnia; Major depressive disorder, single episode, in full remission Start: 06-13-2025 End: 06-13-2025 Office outpatient visit 15 minutes Randall WILKINSON Work Phone: [facility] Comment on above: Kidney stones (Prima ry Dx); Urge incontinence Start: 06-13-2025 End: 06-13-2025 ambulatory RANDALL JAUREGUI [facility] Start: 06-13-2025 End: 06-13-2025 ambulatory Pfo Infusion Chair [address] [facility] Comment on above: Osteoporosis, unspec ified osteoporosis type, unspecified pathological fracture presence (Primary Dx) Start: 06-12-2025 ambulatory [facility] Start: 05-16-2025 End: 05-16-2025 ambulatory Pfo Infusion Chair [address] [facility] Comment on above: Osteoporosis, unspec ified osteoporosis type, unspecified pathological fracture presence (Primary Dx) Start: 05-15-2025 ambulatory [facility] Start: 05-14-2025 End: 05-14-2025 ambulatory Adelfo Hansen MD Facility:[facility] Start: 05-08-2025 End: 05-08-2025 Telephone encounter Katerin Alvarado MD Work Phone: [facility] Comment on above: outgoing referral Start: 04-23-2025 End: 04-23-2025 ambulatory Adelfo Hansen MD Facility:[facility] Start: 04-18-2025 End: 04-18-2025 Office outpatient visit 25 minutes John Johnson MD Work Phone: [facility], A Department of [facility] Comment on above: Osteoporosis, unspec ified osteoporosis type, unspecified pathological fracture presence (Primary Dx); Hypothyroidism, unspecified type; Age-related osteoporosis without current pathological fracture; Vitamin D deficiency Start: 04-18-2025 [facility] Start: 04-18-2025 End: 04-18-2025 ambulatory Pfo Infusion Chair 1 Meggan Harrison [facility] Comment on above: Osteoporosis, unspec ified osteoporosis type, unspecified pathological fracture presence (Primary Dx) Start: 04-13-2025 [facility] Start: 04-09-2025 End: 04-09-2025 Bamboo flowsheet Bia Cao MD Work Phone: [facility] Start: 04-09-2025 End: 04-09-2025 Bamboo flowsheet Bia Cao MD Work Phone: [facility] Start: 04-09-2025 End: 04-09-2025 Office outpatient visit 25 minutes Bia Cao MD Work Phone: [facility] Comment on above: Intractable migraine with aura without status migrainosus (CMS/HCC) (Primary Dx); Fall, subsequent encounter; Essential hypertension (CMS/HCC) Start: 04-09-2025 End: 04-09-2025 ambulatory BIA CAO Not Available Start: 03-22-2025 End: 03-22-2025 Refill Bia Cao MD Work Phone: [facility] Comment on above: Moderate persistent asthma, unspecified whether complicated (CMS/HCC) Start: 03-21-2025 End: 03-21-2025 ambulatory Pfo Infusion Chair [address] [facility] Comment on above: Osteoporosis, unspec ified osteoporosis type, unspecified pathological fracture presence (Primary Dx) Start: 03-19-2025 End: 03-19-2025 ambulatory [facility] Start: 02-27-2025 End: 02-27-2025 Office outpatient visit 15 minutes Randall WILKINSON Work Phone: [facility] Comment on above: Urge incontinence (P rimary Dx); Frequent UTI Start: 02-27-2025 End: 02-27-2025 ambulatory RANDALL JAUREGUI [facility] Start: 02-19-2025 End: 02-19-2025 Orders Only Yoanna Willian BEET END SUPERVISOR-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 Neurology, A Department of [facility] Comment on above: Migraine without aur a and without status migrainosus, not intractable (Primary Dx); Essential tremor; Cervical radiculopathy; Bilateral occipital neuralgia Essential hypertensi on ([facility]/HCC) (Primary Dx) Start: 02-16-2025 End: 02-16-2025 ambulatory Pfo Infusion Chair 1 Meggan Harrison [facility] Comment on above: Osteoporosis, unspec ified osteoporosis type, unspecified pathological fracture presence (Primary Dx) Start: 02-14-2025 End: 02-14-2025 ambulatory [facility] Start: 02-13-2025 End: 02-13-2025 ambulatory BIA CAO Not Available Start: 02-12-2025 End: 02-12-2025 Telephone encounter Bia Cao MD Work Phone: [facility] Start: 02-12-2025 End: 02-12-2025 ambulatory YOANNA DORSEY [facility] Start: 02-12-2025 End: 02-12-2025 Office outpatient visit 15 minutes Yoanna Dorsey BEET END SUPERVISOR-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, A Department of [facility] Comment on above: Migraine without aur a and without status migrainosus, not intractable (Primary Dx); Essential tremor; Psychophysiological insomnia Start: 02-09-2025 End: 02-09-2025 Telephone encounter Blanche Harrison [facility] Start: 02-08-2025 End: 02-08-2025 Orders Only Gladys Zambrano LPN [facility], A Department of [facility] Comment on above: Osteoporosis, unspec ified [...] Phone: [facility] Start: 01-22-2025 ambulatory BIA CAO [facility] Start: 01-15-2025 End: 01-15-2025 Office outpatient visit 15 minutes Bia Cao MD Work Phone: [facility] Comment on above: Influenza A (Primary Dx); Sore throat; Acute cough Start: 01-15-2025 End: 01-15-2025 ambulatory BIA Anny ALVAARDOER Not Available Start: 01-15-2025 End: 01-15-2025 Bamboo flowsmelissa Cao MD Work Phone: [facility] Start: 01-15-2025 End: 01-15-2025 Bamboo flowsheet Bia Cao MD Work Phone: [facility] Start: 01-12-2025 End: 01-12-2025 ambulatory Pfo Infusion Chair 1 Meggan Harrison [facility] Comment on above: Osteoporosis, unspec ified osteoporosis type, unspecified pathological fracture presence (Primary Dx) Start: 01-12-2025 End: 01-12-2025 ambulatory BIA ALVARADOER [facility] Start: 01-11-2025 End: 01-11-2025 ambulatory Pfo Infusion Chair [address] [facility] Start: 01-09-2025 End: 01-09-2025 ambulatory [...] with hematuria (Primary Dx) Start: 12-29-2024 ambulatory [facility] Start: 12-26-2024 End: 12-26-2024 Bamboo flowsheet Bia Cao MD Work Phone: [facility] Start: 12-26-2024 End: 12-26-2024 Bamboo flowsheet Bia Cao MD Work Phone: [facility] Start: 12-26-2024 End: 12-26-2024 ambulatory BIA ACO Not Available Start: 12-26-2024 End: 12-26-2024 Office [...] 12-23-2024 End: 12-23-2024 Emergency department patient visit [facility] Start: 12-22-2024 End: 12-22-2024 Orders Only John Johnson MD Work Phone: [facility], A Department [facility] Comment on above: Osteoporosis, unspec ified osteoporosis type, unspecified pathological fracture presence (Primary Dx) Start: 12-19-2024 End: 12-19-2024 Office outpatient visit 15 minutes Maria C Kramer MD Work Phone: [facility] Comment on above: Urge incontinence (P rimary Dx) Start: 12-19-2024 End: 12-19-2024 ambulatory MARIA C KRAMER [facility] Start: 12-18-2024 End: 12-18-2024 ambulatory Adelfo Hansen MD Facility:[facility] Start: 12-12-2024 End: 12-12-2024 Refill Bia Cao [...] 25 minutes John Johnson MD Work Phone: [facility], A [facility] Comment on above: Hypothyroidism, unsp ecified type (Primary Dx); Age-related osteoporosis without current pathological fracture; Vitamin D deficiency Start: 12-06-2024 End: 12-06-2024 Orders Only Gladys Zambrano LPN [facility], A Department [facility] Comment on above: Osteoporosis, unspec ified osteoporosis type, unspecified pathological fracture presence (Primary Dx) Start: 11-29-2024 End: 11-29-2024 Refill Bia Cao MD Work Phone: [facility] Comment on above: Anemia, unspecified type (Primary Dx) Start: 11-28-2024 End: 11-28-2024 ambulatory ANDRIUS GIEDRAITIS V [facility] Start: 11-20-2024 End: 11-20-2024 ambulatory Adelfo Hansen MD Facility:[facility] Start: 11-06-2024 End: 11-06-2024 Refyuval Cao MD Work Phone: [facility] Comment on above: Hyperlipidemia, unsp ecified hyperlipidemia type (CMS/HCC) Start: 10-30-2024 End: 10-30-2024 Bamboo flowsheet Santo Christianson DPM Work Phone: [facility] Start: 10-30-2024 End: 10-30-2024 Bamboo flowsheet aSnto Christianson DPM Work Phone: [facility] Start: 10-30-2024 End: 10-30-2024 Patient encounter procedure Santo Christianson DPM Work Phone: [facility] Comment on above: Dermatophytosis of n ail (Primary Dx); Dystrophic nail; Pain around toenail, right foot; Pain around toenail, left foot Start: 10-30-2024 End: 10-30-2024 ambulatory SANTO CHRISTIANSON Not Available Start: 10-04-2024 End: 10-06-2024 Telephone encounter Rose Velasquez APRN.DISTILLERY LABORER Work Phone: [facility] Comment on above: Patient Question Start: 09-26-2024 End: 09-26-2024 ambulatory ROSE VELASQUEZ Facility:[facility] Start: 09-26-2024 End: 09-26-2024 Patient encounter procedure Rose Velasquez APRN.DISTILLERY LABORER Work Phone: Neurosurgery Comment on above: 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 Start: 08-21-2024 End: 08-21-2024 ambulatory Adelfo Hansen MD Facility:[facility] Start: 08-14-2024 End: 08-14-2024 Office outpatient visit [...] End: 07-17-2024 ambulatory Adelfo Hansen MD Facility: [place] Start: 07-14-2024 End: 07-14-2024 Orders Only Bia Cao MD Work Phone: [facility] Comment on above: Acute cystitis witho ut hematuria (Primary Dx) Start: 07-13-2024 End: 07-13-2024 ambulatory [facility] Start: 07-11-2024 End: 07-11-2024 Orders [...] [facility] Start: 07-10-2024 End: 07-10-2024 ambulatory JOHN [facility] Start: 07-03-2024 End: 07-03-2024 ambulatory TRACI MARK Not Available Start: 05-09-2024 Orders Only Mandi gambino MD Work Phone: [facility] Comment on above: Intracranial meningi brandon (HCC) (Primary Dx); Benign neoplasm of meninges (HCC) Start: 05-04-2024 End: 05-04-2024 ambulatory BIA CAO Not Available Start: 04-04-2024 End: 04-04-2024 ambulatory MANDI HOOVER Facility:[facility] Start: 04-04-2024 End: 04-04-2024 Patient encounter procedure Mandi Hoover MD Work Phone: [facility] Comment on above: Intracranial meningi brandon (HCC) (Primary Dx); Sensorineural hearing loss (SNHL) of right ear, unspecified hearing status on contralateral side; Dizziness Start: 03-24-2024 Telephone encounter Neurology Provid er Neurology Comment on above: Received Outside [facility] Records (External referral to Neurological [place]/); triage; Nurse Triage Call; Appointment Start: 01-06-2024 End: 01-06-2024 ambulatory Ria Snyder MANAGED CARE COORDINATOR Work Phone: [facility] Comment on above: General weakness (Pr imary Dx); History of falling Start: 01-04-2024 Bamboo flowsheet Ria Lopezig ht MANAGED CARE COORDINATOR Work Phone: [facility] Start: 01-04-2024 Bamboo flowsheet Ria Masters ht MANAGED CARE COORDINATOR Work Phone: [facility] Start: 01-04-2024 End: 01-04-2024 ambulatory Ria Snyder MANAGED CARE COORDINATOR Work Phone: [facility] Comment on above: General weakness (Pr imary Dx); History of falling Start: 01-03-2024 Refill Bia Cao Adali D Work Phone: [facility] Comment on above: Mixed hyperlipidemia (CMS/HCC) (Primary Dx); Stress incontinence of urine Start: 12-30-2023 Chart abstracting Jonny Freitas gs PT Work Phone: [facility] Start: 12-23-2023 End: 12-23-2023 ambulatory Ria Snyder MANAGED CARE COORDINATOR Work Phone: [facility] Comment on above: General weakness (Pr imary Dx); History of falling Start: 10-12-2022 End: 10-12-2022 ambulatory [facility] Start: 09-28-2022 End: 09-28-2022 ambulatory [facility] Start: 05-16-2018 End: 05-16-2018 Ambulatory AUDREY BARRIOSSE [facility] Start: 05-06-2018 End: 05-11-2018 Ambulatory LENNY BRIGITTETANISHA [facility] Start: 05-02-2018 Patient encounter status Antonietta Johnson MD Work Phone: [facility] [employer] [facility] Work Phone: Procedures Date Procedure Procedure Detail Performing Clinician Start: 06-13-2025 Follow-up visit Follow-up YOVANI JAUREGUI Start: 02-27-2025 Urnls dip stick/tabl et rgnt auto w/o microscopy Randall Jauregui PA Work Phone: Start: 02-12-2025 Adult depression scr eening assessment Yoanna Dorsey BEET END SUPERVISOR-DISTILLERY LABORER Work Phone: Start: 01-23-2025 Urnls dip stick/tabl et rgnt non-auto w/o micrscp Bia Cao MD Work Phone: Start: 01-15-2025 STATUS COVID-19/FLU Mar y Anny Cao MD Work Phone: Start: 01-01-2025 Urnls dip stick/tabl et rgnt non-auto w/o micrscp Tae Hardy NP Work Phone: Start: 12-08-2024 Culture bacterial quanttative [...] micrscp Bia Cao MD Work Phone: Start: 05-16-2018 DISCHARGE PATIENT [...] Author Start: 02-10-2027 Diabetes Screening Diabetes Screenin [facility] Start: 06-13-2026 Tobacco Screening Tobacco Screening [facility] Start: 05-16-2026 Tobacco Screening Tobacco Screening [facility] Start: 04-18-2026 Tobacco Screening Tobacco Screening [facility] Start: 02-27-2026 Tobacco Screening Tobacco Screening [facility] Start: 02-26-2026 End: 02-26-2026 Patient encounter procedure 02/26/2026 1:00 PM EDT Office Visit [facility] [address] [place] [address] [place] [address] Maria C Kramer MD [address] [place] [address] [facility] Start: 02-16-2026 Tobacco Screening [facility] Start: 02-12-2026 Depression Screening Depression Scre ening [facility] Start: 02-12-2026 Fall Risk Screening Fall Risk Screen ing [facility] Start: 02-12-2026 Tobacco Screening Tobacco Screening [facility] Start: 01-14-2026 End: 06-13-2026 XR Abdomen AP X-ray abdomen ap 1 view Imaging Routine Kidney stones Expected: 01/14/2026, Expires: 06/13/2026 [facility] Work Phone: Comment on above: Expected: 01/14/2026 , Expires: 06/13/2026 Start: 01-11-2026 Tobacco Screening Tobacco Screening [facility] Start: 12-19-2025 Tobacco Screening Tobacco Screening [facility] Start: 12-06-2025 Tobacco Screening Tobacco Screening [facility] Start: 08-16-2025 End: 08-16-2025 Patient encounter procedure [facility] Start: 07-23-2025 Influenza [facility] Start: 07-13-2025 Depression Screening Depression Scre ening [facility] Start: 07-11-2025 End: 07-11-2025 ambulatory 07/11/2025 12:00 PM EDT Infusion Meggan Harrison [facility] [address] [place] [phone] Meggan Harrison [facility] Start: 07-10-2025 End: 07-10-2025 Patient encounter procedure [facility] Start: 06-13-2025 End: 06-13-2025 Patient encounter procedure 06/13/2025 2:00 PM EDT Office Visit [facility] [address] [place] [address] [place] [address] Randall Jauregui I, PA [address] [place] [address] [facility] Start: 06-13-2025 End: 06-13-2025 ambulatory 06/13/2025 12:30 PM EDT Infusion Meggan Harrison [facility] [address] [place] [phone] [facility] Start: 05-21-2025 Influenza vaccination Influenza Vacc ine (#1) [facility] Comment on above: Postponed from 07/23 (Other Medical Reasons) Start: 05-16-2025 End: 05-16-2025 ambulatory 05/16/2025 10:30 AM EDT Infusion Meggan Harrison [facility] [address] [place] [phone] Meggan Harrison [facility] Start: 04-26-2025 COVID-19 Vaccine ( season) COVID-19 Vaccine () [facility] Start: 04-18-2025 End: 04-18-2026 DXA Skeletal system Views for bone density Dexa scan central skeletal Imaging Routine Osteoporosis, unspecified osteoporosis type, unspecified pathological fracture presence Expected: 04/18/2025, Expires: 04/18/2026 [facility] Work Phone: Comment on above: Expected: 04/18/2025 , Expires: 04/18/2026 Start: 04-18-2025 End: 04-18-2025 Patient encounter procedure 04/18/2025 1:30 PM EDT Office Visit [facility]ology, A Department of [facility] [address] [facility] [address] [place] [phone] John Johnson MD [address] [facility] [place] [address] [facility]ocr[facility]ology, A Department of [facility] Start: 04-18-2025 End: 04-18-2025 ambulatory 04/18/2025 10:30 AM EDT Infusion Meggan Harrison [facility] [address] [place] [phone] Meggan Harrison [facility] Medical Oncology Start: 04-09-2025 End: 04-09-2025 Patient encounter procedure [facility] Comment on above: Arrived Start: 04-09-2025 End: 04-09-2025 ambulatory 04/09/2025 1:00 PM EDT Infusion Meggan Harrison [facility] [address] [place] [phone] Meggan Harrison [facility] Start: 04-06-2025 End: 04-06-2025 Patient encounter procedure 04/06/2025 10:30 AM EDT Office Visit [facility] [address] [place] [address] [place] [phone] Corey Corbett, [address] [facility], [address], [address] [place], [place] [phone] [facility] Start: 03-12-2025 End: 03-12-2025 ambulatory 03/12/2025 1:30 PM EDT Infusion Meggan Harrison [facility] [address] [place] [phone] Meggan Harrison [facility]cology Start: 03-10-2025 Fall Risk Screening Fall Risk Screen [facility] Start: 03-09-2025 End: 03-09-2025 ambulatory 03/09/2025 1:00 PM EDT Infusion Meggan Harrison [facility] [address] [place] [phone] Meggan Harrison [facility] Start: 02-27-2025 End: 02-27-2025 Patient encounter procedure 02/27/2025 2:30 PM EDT Office Visit [facility] [address] [place] [phone] Randall Jauregui PA [address] [place] [address] [facility] Start: 02-16-2025 End: 02-16-2025 ambulatory 02/16/2025 1:00 PM EDT Infusion Meggan Dale Hunter [facility] [address] [place] [phone] Meggan Harrison [facility] Start: 02-13-2025 End: 02-13-2025 Professional / ancillary services management 02/13/2025 2:00 PM EDT Ancillary Procedure [facility] [address] [phone] Start: 02-12-2025 End: 02-12-2025 Patient encounter procedure [facility] Department of [facility] Start: 02-09-2025 End: 02-09-2025 ambulatory 02/09/2025 2:00 PM EDT Infusion Meggan Harrison [facility] [address] [place] [phone] Meggan Harrison [facility] Start: 02-08-2025 End: 02-08-2025 ambulatory 02/08/2025 2:00 PM EDT Infusion Meggan Harrison [facility] [address] [place] [phone] Meggan Harrison [facility] Oncology Start: 02-06-2025 End: 02-06-2025 Patient encounter procedure 02/06/2025 9:20 AM EDT Office Visit [facility] [address] [place] [phone] Bia Cao MD [address] [place] [address] [facility] Start: 01-23-2025 End: 01-23-2026 [...] Office Visit [facility] [address] [place] [address] Yoanna Dorsey, BEET END SUPERVISOR-DISTILLERY LABORER [address] [place] [address] [facility] Start: 01-17-2025 End: 01-17-2025 Patient encounter procedure [facility] Start: 01-15-2025 End: 01-15-2025 Patient encounter procedure 01/15/2025 2:20 PM EST Office Visit [facility] [address] [place] [phone] Bia Cao MD [address] [place], [place] [phone] Arrived [facility] Comment on above: Arrived Start: 01-12-2025 End: 01-12-2025 ambulatory 01/12/2025 2:20 PM EST Infusion [facility]gan [facility] [place] [phone] Meggan L [facility] Medical Oncology Start: 01-09-2025 End: 01-09-2025 Patient encounter procedure 01/09/2025 1:40 PM EST Office Visit [facility] [address] [facility] [address] [place] [phone] Katerin Alvarado MD [address] [facility] [address] [place] [address] [facility] Start: 01-01-2025 End: 01-01-2026 Bacteria identified in Urine by Culture Urine culture (clean catch) Microbiology Routine Hematuria, unspecified type Expected: 01/01/2025 (Approximate), Expires: 01/01/2026 [facility] Work Phone: Comment on above: Expected: 01/01/2025 (Approximate), Expires: 01/01/2026 Start: 01-01-2025 End: 01-01-2025 Patient encounter procedure 01/01/2025 1:30 PM EST Office Visit [facility] [address] [place] [phone] [facility] Start: 12-26-2024 End: 12-26-2024 Patient encounter procedure 12/26/2024 9:20 AM EST Office Visit [facility] [address] [place] [phone] Bia Cao MD [address] [place], [place] [phone] [facility] Start: 12-19-2024 End: 12-19-2024 Patient encounter procedure 12/19/2024 12:45 PM EST Office Visit [facility] [address] [place] [phone] Maria C Kramer MD [address] [place] [address] [facility] Start: 12-08-2024 End: 12-08-2024 Patient encounter procedure 12/08/2024 11:40 AM EST Office Visit [facility] [address] [place] [phone] Bia Cao MD [address] [place] [address] [facility] Start: 12-06-2024 Medicare Annual Well ness (AWV) Medicare Annual Wellness (AWV) [facility] Start: 10-30-2024 End: 10-30-2024 Patient encounter procedure 10/30/2024 1:45 PM EST Office Visit [facility] [address] [place] [phone] Santo Christianson DPM [address] [place] [address] Arrived [facility] Comment on above: Arrived Start: 08-28-2024 End: 06-08-2025 MR Brain WO and W contrast IV MRI BRAIN WO/W IVCON Radiology Routine Benign neoplasm of meninges (HCC) Expected: 08/28/2024 (Approximate), Expires: 06/08/2025 [facility] Work Phone: Comment on above: Expected: 08/28/2024 (Approximate), Expires: 06/08/2025 Start: 08-14-2024 End: 08-14-2024 Patient encounter procedure 08/14/2024 4:00 PM EDT Office Visit [facility] [address] [place] [phone] Bia Cao MD [address] [place] [address] Arrived [facility] Comment on above: Arrived Start: 08-08-2024 End: 08-08-2024 Patient encounter procedure 08/08/2024 11:40 AM EDT Office Visit [facility] [address] [place] [phone] Bia Cao MD [address] [place] [address] Arrived [facility] Comment on above: Arrived Start: 08-04-2024 End: 08-04-2024 Patient encounter procedure 08/04/2024 11:00 AM EDT Office Visit [facility] [address] [place] [phone] Bia Cao MD [address] [place] [address] [facility] Start: 07-23-2024 Covid-19 Vaccine ( season) Covid-19 Vaccine ( season) [facility] Start: 07-23-2024 Influenza vaccination [facility] Start: 07-10-2024 End: 07-10-2024 Patient encounter procedure 07/10/2024 3:40 PM EDT [facility] [address] [place] [address] Bia Cao MD [address] [place] [address] Arrived [facility] Comment on above: Arrived Start: 07-10-2024 End: 07-10-2025 Bacteria identified in Urine by Culture Urine culture (clean catch) Microbiology Routine Dysuria Expected: 07/10/2024 (Approximate), Expires: 07/10/2025 [facility] Work Phone: Comment on above: Expected: 07/10/2024 (Approximate), Expires: 07/10/2025 Start: 07-10-2024 End: 07-10-2025 Urinalysis complete panel - Urine Urinalysis with reflex microscopic (clean catch) Lab Routine Dysuria Expected: 07/10/2024 (Approximate), Expires: 07/10/2025 [facility] Comment on above: Expected: 07/10/2024 (Approximate), Expires: 07/10/2025 Start: 05-21-2024 Influenza vaccination Influenza Vacc ine (#1) [facility] Comment on above: Postponed from 07/23 (Patient Refused) Start: 04-04-2024 End: 04-04-2024 Patient encounter procedure 04/04/2024 10:30 AM EDT [facility] [address] [place] [address] Mandi Hoover MD [address] [place] [address] Time Frame: First available [facility] Comment on above: Time Frame: First av ailable Start: 04-03-2024 End: 04-03-2024 Patient encounter procedure 04/03/2024 11:20 AM EDT Office Visit [facility] [address] [place] [phone] Bia Cao MD [address] [place] [address] [facility] Start: 01-20-2024 End: 01-20-2024 ambulatory 01/20/2024 11:00 AM EST Treatment [facility] [address] [place] [phone] Jonny Salazar, PT [address] [place] [address] [facility] Start: 01-18-2024 End: 01-18-2024 ambulatory 01/18/2024 11:30 AM EST Treatment [facility] [address] [place] [phone] Ria Snyder, MANAGED CARE COORDINATOR [address] [place] [address] [facility] Start: 01-14-2024 End: 01-14-2024 ambulatory 01/14/2024 1:00 PM EST Treatment [facility] [address] [place] [phone] Ria Snyder, MANAGED CARE COORDINATOR [address] [place] [address] [facility] Start: 01-12-2024 End: 01-12-2024 ambulatory 01/12/2024 12:30 PM EST Treatment [facility] [address] [place] [phone] Ria Snyder, MANAGED CARE COORDINATOR [address] [place] [address] [facility] Start: 01-06-2024 End: 01-06-2024 ambulatory [facility] Start: 01-04-2024 End: 01-04-2024 ambulatory 01/04/2024 11:30 AM EST Treatment [facility] [address] [place] [address] Ria Snyder, MANAGED CARE COORDINATOR [address] [place] [address] [facility] Start: 12-31-2023 End: 12-31-2023 ambulatory 12/31/2023 10:00 AM EST Treatment [facility] [address] [place] [address] Ria Snyder, MANAGED CARE COORDINATOR [address] [place] [address] [facility] Start: 12-30-2023 End: 12-30-2023 ambulatory 12/30/2023 11:30 AM EST Treatment [facility] [address] [place] [address] Jonny Salazar, PT [address] [place] [address] [facility] Start: 12-28-2023 End: 12-28-2023 ambulatory 12/28/2023 11:30 AM EST Treatment [facility] [address] [place] [address] Ria Snyder, MANAGED CARE COORDINATOR [address] [place] [address] [facility] Start: 11-22-2023 Advance Directive Discussion Advance Directive Discussion [facility] Start: 11-22-2023 Behavioral Health Screening Behavioral Health Screening [facility] Start: 07-23-2023 Covid-19 Vaccine () Covid-19 Vaccine () [facility] Start: 08-21-2021 DTaP,Tdap and Td Vac cines (2 - Td or Tdap) DTaP,Tdap and Td Vaccines (2 - Td or Tdap) [facility] Start: 2020 RSV Vaccine (1 - 1-d ose 75+ series) RSV Vaccine (1 - 1-dose 75+ series) [facility] Start: 08-22-2011 Urine microalbumin profile DTaP,Tdap,Td Vaccine (1 - Tdap) [facility] Start: 01-17-2010 Administration of varicella zoster vaccine Zoster (Shingles) Vaccine (2 of 3) [facility] Start: 2005 RSV Vaccine (1 - 1-d ose 60+ series) RSV Vaccine (1 - 1-dose 60+ series) [facility] Start: 1995 Shingrix Vaccine (1 of 2) Morales grix Vaccine (1 of 2) [facility] Start: 1963 Anxiety Screening Anxiety Screening [facility] Start: 1963 Depression Screening Depression Scre ening [facility] Start: 1963 Hepatitis C screening Hepatitis C Sc [facility] Bacteria identified in Urine by Culture Urine culture (clean catch) Microbiology Routine Urinary frequency 12/08/2024 12:28 PM [facility] Work Phone: End: 12-22-2025 Calcium [Mass/volume] in Serum or Plasma Calcium Lab Routine Osteoporosis, unspecified osteoporosis type, unspecified pathological fracture presence every 3 months for 4 Occurrences starting 12/22/2024 until 12/22/2025 [facility] Work Phone: Comment on above: every 3 months for 4 Occurrences starting 12/22/2024 until 12/22/2025 End: 02-08-2026 Calcium [Mass/volume] in Serum or Plasma Calcium Lab Routine Osteoporosis, unspecified osteoporosis type, unspecified pathological fracture presence MONTHLY for 12 Occurrences starting 02/08/2025 until 02/08/2026 [facility] Work Phone: Comment on above: MONTHLY for 12 Occur rences starting 02/08/2025 until 02/08/2026 End: 10-26-2025 MR Brain WO and W contrast IV MRI BRAIN WO/W IVCON Radiology Routine Benign neoplasm of meninges (HCC) 1 Occurrences starting 09/26/2024 until 10/26/2025 [facility] Work Phone: Comment on above: 1 Occurrences starti ng 09/26/2024 until 10/26/2025 Immunizations Immunization Date Immunization Notes Care Provider Frank seymour 10-26-2024 RSV, recombinant, protein subunit RSVpreF, adjuvant reconstitu, 120mcg/0.5mL, PF (Arexvy) Santo Christianson DPM Work Phone: [facility] 03-12-2021 COVID-19, mRNA, LNP- S, PF, 100mcg/0.5mL Dose John Johnson MD Work Phone: [facility] 03-11-2021 Moderna SARS-CoV-2 Vaccination Ria Snyder MANAGED CARE COORDINATOR Work Phone: [facility] 02-12-2021 COVID-19, mRNA, LNP- S, PF, 100mcg/0.5mL Dose John Johnson MD Work Phone: [facility] 02-11-2021 Moderna SARS-CoV-2 Vaccination Ria Snyder MANAGED CARE COORDINATOR Work Phone: [facility] 11-12-2020 pneumococcal conjuga te vaccine, 13 valent Ria Snyder MANAGED CARE COORDINATOR Work Phone: [facility] 09-17-2020 influenza, high dose seasonal, preservative-free Ria Snyder MANAGED CARE COORDINATOR Work Phone: [facility] 09-17-2020 Seasonal, quadrivale nt, recombinant, injectable influenza vaccine, preservative free John Johnson MD Work Phone: [facility] 09-17-2020 influenza virus vacc ine, unspecified formulation Ria Snyder MANAGED CARE COORDINATOR Work Phone: [facility] 08-30-2019 Seasonal, quadrivale nt, recombinant, injectable influenza vaccine, preservative free Ria Snyder MANAGED CARE COORDINATOR Work Phone: [facility] 08-29-2018 influenza, injectabl e, quadrivalent, preservative free Ria Snyder MANAGED CARE COORDINATOR Work Phone: [facility] 08-22-2015 influenza, seasonal, injectable, preservative free Rai Snyder MANAGED CARE COORDINATOR Work Phone: [facility] 08-13-2015 pneumococcal polysaccharide vaccine, 23 valent Ria Snyder MANAGED CARE COORDINATOR Work Phone: [facility] 08-21-2011 tetanus and diphther ia toxoids, adsorbed, preservative free, for adult use (5 Lf of tetanus toxoid and 2 Lf of diphtheria toxoid) Riarandell Snyder MANAGED CARE COORDINATOR Work Phone: [facility] 11-22-2009 zoster vaccine, live Greeulae n Claudio MANAGED CARE COORDINATOR Work Phone: [facility] 11-22-2009 zoster vaccine, unspecified formulation John Johnson MD Work Phone: [facility] 08-31-2003 pneumococcal polysaccharide vaccine, 23 valent Bia Cao MD Work Phone: [facility] Healthcare Payers Date Payer Category Payer Medicaid [employer] MEDICARE A DVANTAGE [id number] 2023 Medicare [id number] 2022 Private Health Insurance 2021 Medicare HMO [employer] MEDICARE [id number] 2021 Medicare [id number] 2014 Medicare [id number] 1945 Unknown [id number] 2.0.1.722266.3.579.2. 175 1945 Unknown [id number] 2..1.594697.3.579.2. 175 1945 Unknown [id number] 2.0.1.709870.3.579.2. 1258 1945 Unknown [id number] 2.0.1.848710.3.579.2. 1258 1945 Unknown [id number] 2.0.1.021873.3.579.2. 1258 1945 Unknown [id number] 2..1.671212.3.579.2. 1258 1945 Unknown [id number] 2..1.702635.3.579.2. 1258 1945 Unknown [id number] 2.840.1.689663.3.579.2. 1258 1945 Unknown [id number] 2.840.1.641620.3.579.2. 1258 1945 Unknown [id number] 2.840.1.739860.3.579.2. 1258 1945 Unknown [id number] 2.840.1.436059.3.579.2. 1258 1945 Unknown [id number] 2.16840.1.201660.3.579.2. 1259 -194 Unknown [id number] 2.16840.1.674610.3.579.2. 9 -194 Unknown [id number] 2.16.840.1.180498.3.579.2. 9 194 Unknown [id number] 2.840.1.022776.3.579.2. 1259 04-194 Unknown [id number] 2.840.1.288981.3.579.2. 1259 04-194 Unknown [id number] 2.840.1.343233.3.579.2. 1258194 Unknown [id number] 2.840.1.226160.3.579.2. 1258194 Unknown [id number] 2.0.1.055803.3.579.2. 1285 1945 Unknown [id number] 2.840.1.626599.3.579.2. 128194 Unknown [id number] 2.840.1.357342.3.579.2. 1285 1945 Unknown [id number] 2.840.1.539151.3.579.2. 1285194 Unknown [id number] 2.840.1.301495.3.579.2. 1285194 Unknown [id number] 2.840.1.712032.3.579.2. 1286 194 Unknown [id number] 2.840.1.120238.3.579.2. 1285194 Unknown [id number] 2.840.1.147833.3.579.2. 1286 194 Unknown [id number] 2.840.1.339987.3.579.2. 1286 194 Unknown [id number] 2.840.1.843289.3.579.2. 1285 1945 Unknown [id number] 2.840.1.291987.3.579.2. 1285194 Unknown [id number] 2.840.1.603751.3.579.2. 1285 1945 Unknown [id number] 2.840.1.949948.3.579.2. 128 1945 Unknown [id number] 2.840.1.433536.3.579.2. 1285 1945 Unknown [id number] 2.0.1.922707.3.579.2. 1285 1945 Unknown [id number] 01.07.840.1.787314.3.579.2. 1285 1945 Unknown [id number] .840.1.148781.3.579.2. 1285 1945 Unknown [id number] 01.07.840.1.972968.3.579.2. 1285 1945 Unknown [id number] .840.1.966617.3.579.2. 1285 1945 Unknown [id number] 01.07.840.1.069134.3.579.2. 1285 1945 Unknown [id number] 840.1.279011.3.579.2. 128 1945 Unknown [id number] 840.1.536673.3.579.2. 1285 1945 Unknown [id number] 2.840.1.857746.3.579.2. 1285194 Unknown [id number] 840.1.253821.3.579.2. 1286 1945 Unknown [id number] 2.16.840.1.888732.3.579.2. 1286 1945 Unknown [id number] 2.16.840.1.540613.3.579.2. 1286 1945 Unknown [id number] 2.16.840.1.112048.3.579.2. 1286 1945 Unknown [id number] 2.16.840.1.441267.3.579.2. 196 1945 Unknown [id number] 2.16.840.1.392793.3.579.2. 196 1945 Unknown [id number] 2.16.840.1.834392.3.579.2. 196 1945 Unknown [id number] 2.16840.1.490058.3.579.2. 196 1945 Unknown [id number] 2.16840.1.386962.3.579.2. 196 1945 Unknown [id number] 2.16840.1.226853.3.579.2. 196 1945 Unknown [id number] 2.16840.1.955222.3.579.2. 196 Social History Date Type Detail Facility Start: 06-04-2023 End: 04-03-2024 Tobacco smoking status [facility] Never smoked tobacco [facility] Start: 06-04-2023 End: 04-03-2024 Tobacco use and exposure Smokeless tobacco non-user [facility] Start: 12-07-2023 Alcohol intake Current drinker of alcohol (finding) [facility] Start: 12-07-2023 End: 04-02-2024 History of Social function [facility] Start: 12-07-2023 End: 04-02-2024 Tobacco use panel [facility] Start: 05-04-2023 Alcohol Comment caffeine: occasional [facility] Start: 1945 Sex Assigned At Not on file [facility] Start: 01-27-2018 End: 06-13-2025 Alcohol intake Current non-drinker of alcohol (finding) [facility] National Score (1-10 0), lower number is lower risk Not on file [facility] Start: 07-10-2024 End: 04-09-2025 Alcoholic beverage intake Ex-drinker (finding) [facility] Do you belong to any clubs or organizations such as muslim groups, unions, fraternal or athletic groups, or [...] Healthcare History of tobacco use Passive smoker [facility] Start: 1945 Sex assigned at Female [facility] Start: 06-27-2015 Sex Female (finding) [facility] Start: 05-22-2021 Gender identity Identifies as female gender (finding) [facility] Start: 05-22-2021 Sexual orientation Heterosexual (finding) [facility] Medical Equipment Procedure Code Equipment Code Equipment Origin al Text Equipment Identifier Dates Patch Dura 1x1in Drmtrx-[place] + Clgn Rgnrt Membr Strl - [id number] Start: 07-03-2021 Goals Date Patient Goal Desired Activity /State Personal health goal Personal health goal Comment on above: Formatting of this n ote might be different from the original. Evaluation of progress towards goal: safe transition from hospital to home with support of her friends/neighbors Clinical Notes 03-24-2024 to 06-26-2025 Telephone Encounter - Torres Wood - 06/26/2025 2:21 PM EDTTelephone Encounter - Torres Robjenna - 06/26/2025 2:21 PM EDTAssessment & Plan Note - MINH Gallagher - 06/13/2025 2:22 PM EDT Note Date & Type Note Facility 06-26-2025 Telephone encounter Note Angela asking if she can stop in and leave a urine spc. - she has UTI symptoms - she said Dr Cao usually allows her to just come in and leave a urine spc . Please call and let her know when to come in [phone] [facility] 06-26-2025 Miscellaneous Notes Angela asking if she can stop in and leave a urine spc. - she has UTI symptoms - she said Dr Cao usually allows her to just come in and leave a urine spc . Please call and let her know when to come in [phone] documented in this encounter [facility] 06-13-2025 Evaluation + Plan note Associated Problem(s): Urge incontinence We will see her back in January with a KUB. She will call sooner if she has any problems. If she suspects an infection, she can contact the office so that we can have her stop at the lab for culture [facility] 06-13-2025 Miscellaneous Notes Associated Problem(s): Urge incontinence We will see her back in January with a KUB. She will call sooner if she has any problems. If she suspects an infection, she can contact the office so that we can have her stop at the lab for culture documented in this encounter [facility] 06-13-2025 History of Present illness Narrative Images from the original note were not included. [address] [place] [address] [address] [facility] [id number] Patient: Angela Ruth Date of : 1945 Encounter Date: 06/13/2025 History of Present Illness: Chief Complaint: Follow up The patient is a 80 y.o. female, an established patient, and is here for follow-up. Please see her history below. She has not had any Urinary tract infection since her last appointment. She started taking cranberry tablets. She denies any current urologic concerns. Summary of old records: Notes from de 02/27/25: The Myrbetriq was too expensive so she [...] use 1-2 pads per day. Urinalysis today: No results for input(s): EXTPOCURCO [...] (benign paroxysmal positional vertigo) Brain tumor (benign) ([facility]) Breast disorder 4 biopsies Bronchitis 01/01/2017 Cancer ([facility]) Basal cell Carpal tunnel syndrome Cataract Chronic [...] 07/07/2018 Performed by Alexander Leach MD at [facility] ENDOSCOPY COSMETIC SURGERY 1984 DISCECTOMY 1989 Partial L4-5 EGD 2002 EYE SURGERY 2015 FOOT SURGERY 2009 Reattachment of tendon left foot with bone graft HIP SURGERY 2003 Excision of bursa left hip HYSTERECTOMY 1983 INJECTION BLOCK EPIDURAL STEROID LUMBAR/SACRAL Left L 5,1 NR Left 12/20/2020 Performed by Shubham Clifton MD at [facility] INJECTION BLOCK NERVE MEDIAL BRANCH right C 4/5,5/6 Right 05/22/2022 Performed by Shubham Clifton MD at [facility] INJECTION BLOCK NERVE MEDIAL BRANCH right C 4/5,5/6 Right 04/17/2022 Performed by Shubham Clifton MD at [facility] CAUDAL EPIDURAL WITH CATHETER, STEROID N/A 03/07/2018 Performed by Shubham Clifton MD at [facility] LARGE JOINT BURSA: bilat hip Bilateral 12/10/2017 Performed by Shubham Clifton MD at [facility] MEDIAL BRANCH NERVE BLOCK Bilateral L 4/5, 5/1 Bilateral 06/28/2017 Performed by Shubham Clifton MD at [facility] INJECTION MEDIAL BRANCH NERVE BLOCK Right L 2/3, 3/4 Right 12/08/2019 Performed by Shubham Clifton MD at [facility] MEDIAL BRANCH NERVE BLOCK RIGHT L23 34 Right 01/19/2020 Performed by Shubham Clifton MD at [facility] INJECTION SI JOINT Bilateral 04/09/2017 Performed by Shubham Clifton MD at [facility] INJECTION SI JOINT Bilateral SI Joint Bilateral 05/31/2020 Performed by Shubham Clifton MD at [facility] INJECTION SI JOINT Left SI JOint Left 01/06/2019 Performed by Shubham Clifton MD at [facility] INJECTION SI JOINT Right SI Joint Right 06/09/2019 Performed by Shubham Clifton MD at [facility] INJECTION SPINE TRANSFORAMINAL Left L 4, 5 NR Left 09/24/2017 Performed by Shubham Clifton MD at [facility] INJECTION SPINE TRANSFORAMINAL Left L 5,1 Nroot Left 01/08/2023 Performed by Shubham Clifton MD at [facility] INJECTION SPINE TRANSFORAMINAL Right L 5,1 Nroot Right 11/27/2022 Performed by Shubham Clifton MD at [facility] INJECTION STEROID EPI 1 WITH SEDATION Left 5,1 NR Left 05/08/2019 Performed by Shubham Clifton MD at [facility] KNEE ARTHROSCOPY 2010, 2013 KNEE SURGERY 2010 2013 Arthroscopy bilateral/repair meniscus right X2, left X1 LAMINECTOMY LUMBAR FORAMENOTOMY MULTI LEVEL L1-2 RIGHT/L2-3 BILATERAL/LUMBAR DRAIN INSERTION N/A 07/03/2021 Performed by Corey Chacon MD at [facility] LAPAROTOMY OOPHERECTOMY Bilateral 1984 LUMBAR DISCECTOMY LUMBAR FUSION 2010 L3-5 LUMBAR LAMINECTOMY MICRO LUMBAR DISCECTOMY L5-S1/ FORAMINOTOMY L5-S1 Left 01/14/2017 Performed by Corey Chacon MD at [facility] OOPHORECTOMY 1982 OTHER SURGICAL HISTORY Knee Arthroscopy With Medial Meniscus Repair OTHER SURGICAL HISTORY Spinal Diskectomy RADIO FREQUENCY ABLATION Left L 4/5, 5/1 Left 12/02/2018 Performed by Shubham Clifton MD at [facility] RADIO FREQUENCY ABLATION Left L 4/5, 5/1 Left 07/30/2017 Performed by Shubham Clifton MD at [facility] RADIO FREQUENCY ABLATION Left SI joint Left 03/31/2019 Performed by Shubham Clifton MD at [facility] RADIO FREQUENCY ABLATION Right L2/3, 3/4 Right 03/29/2020 Performed by Shubham Clifton MD at [facility] RADIOFREQUENCY ABLATION SPINAL Left Si joint Left 05/07/2017 Performed by Shubham Clifton MD at [facility] RADIOFREQUENCY ABLATION SPINAL Right C 4/5,5/6 Right 06/26/2022 Performed by Shubham Clifton MD at [facility] RADIOFREQUENCY ABLATION SPINAL RIGHT SI JOINT Right 05/21/2017 Performed by Shubham Clifton MD at [facility] RELEASE CARPAL TUNNEL Left 11/04/2021 Performed by Corey Chacon MD at [facility] SHOULDER SURGERY 2011 Right [...] wheezing or shortness of breath. PRO AIR amitriptyline (ELAVIL) 50 mg tablet Take 1 tablet (50 mg total) by mouth nightly. 90 tablet 3 ascorbic acid (VITAMIN C) 500 mg tablet Take 2 tablets (1,000 mg total) by mouth in the morning. aspirin 81 mg Take 1 tablet (81 mg total) by mouth in the morning. ouiitvc-chkuwzceklywe-uhrukvpy (EXCEDRIN MIGRAINE) 250-250-65 mg per tablet Take [...] 1 tablet (20 mg total) before bedtime. ferrous sulfate (FeroSuL) 325 (65 FE) mg tablet Take 1 tablet (325 mg total) by mouth in the morning and 1 tablet (325 mg total) in the evening. Take with meals. TAKE 1 TABLET BY MOUTH EVERY MORNING AND 1 TABLET EVERY EVENING WITH MEALS. (Patient not taking: Reported on 06/13/2025) 60 tablet 2 No current facility-administered medications for this visit. (All medications reviewed and updated by provider since last office visit or hospitalization) Allergies: Indocin [indomethacin], Lincocin [lincomycin], Lincosamides, Ubgbfzmf-[id number] antimigraine agents, Adhesive, Eggshell membrane, Influenza virus [...] and vomitting. -per HPI Physical Exam: BP 103/62 Pulse 74 Ht 157.5 cm (5' 2.01 ) Wt 63.5 kg (140 lb) BMI 25.60 kg/m Constitutional: She appears well-developed. No distress. Pulmonary/Chest: Effort normal. No respiratory distress. Neurological: She is alert and oriented for age. Gait: Uses a cane Nursing note and vitals reviewed. Assessment and Plan: Angela was seen today for follow-up. Diagnoses and all orders for this visit: Kidney stones - X-ray abdomen ap 1 view; Future Urge incontinence Problem List Genitourinary Kidney stones - Primary Overview 06/13/25: CT 02/13/2025 showed a few small stones in the right kidney. We will check with a KUB in January 2026 Relevant Orders X-ray abdomen ap 1 view Urge incontinence Overview 08/29/2024: Urge incontinence. Multifactorial including her back issues, constipation, caffeine consumption. Recommended decreasing caffeine as well as addressing constipation with goyy-xyv-uaktsff agents. If no improvement can add beta [...] with cystoscopy or pursue other treatment options 06/13/25: No Urinary tract infection since starting cranberry supplements. She is not interested in pursuing her incontinence further. Current Assessment & Plan We will see her back in January with a KUB. She will call sooner if she has any problems. If she suspects an infection, she can contact the office so that we can have her stop at the lab for culture Follow-up: Dr. Kramer in February with KUB MINH GALLAGHER This note was created with the assistance of a speech recognition program. While intending to generate a timely document that accurately reflects the content of the visit, no guarantee can be provided that every grammatical or spelling mistake has been or will be identified or corrected. Thank you for your understanding. MINH Gallagher 06/13/25 1422 documented in this encounter [facility] 06-13-2025 History of Present illness Narrative Patient is here for Evenity injection as scheduled. Calcium reviewed with patient, WNL at 9.5. OK to proceed with Evenity as planned. Medication administered in left upper arm subcutaneous tissue without incident and patient tolerated well. Sites covered with band aids. Treatment calendar. Patient discharged in stable condition to private vehicle in care of her granddaughter. documented in this encounter [facility] 05-16-2025 History of Present illness Narrative Patient is here for Evenity injection as scheduled. Calcium reviewed with patient, WNL at 9.7. OK to proceed with Evenity as planned. Medication administered in left upper arm subcutaneous tissue without incident and patient tolerated well. Sites covered with band aids. Treatment calendar and lab results provided. Patient discharged in stable condition to private vehicle in care of her granddaughter. documented in this encounter [facility] 05-08-2025 Telephone encounter Note prn [facility] Work Phone: 05-08-2025 Miscellaneous Notes prn Called pt to see if she is planning on scheduling with doctor regarding outgoing referral, pt said no, she does not want to schedule any appts. documented in this encounter [facility] 05-08-2025 Telephone encounter Note Called pt to see if she is planning on scheduling with doctor regarding outgoing referral, pt said no, she does not want to schedule any appts. [facility] 04-18-2025 History of Present illness Narrative Reason for Visit: Angela Ruth is a 79 y.o. female who is being seen today in follow up for hypothyroidism History of Present Illness: Currently taking levothyroxine 150 mcg daily but skipping Wednesday. Feels well without complaint, recent TSH 3.12 May 2023 Also has osteoporosis, on EVENITY Will complete for 12 months of treatment all together. NO falls in the last 6 months [...] Lab Results Component Value Date CALCIUM 9.5 04/13/2025 CALCIUM 9.6 03/19/2025 CALCIUM 9.3 02/14/2025 CREATININE 1.01 (H) 02/11/2024 CREATININE 1.28 (H) 2023 CREATININE 0.77 03/03/2023 Lab Results Component Value Date VITD25 78.8 07/10/2024 VITD25 58.9 2023 VITD25 66.3 07/07/2022 VITD25 63.4 08/14/2021 Past Medical History: Diagnosis Date Age related osteoporosis Allergic 1951 Allergic rhinitis 1951 Arthritis Asthma Atrophy of vocal cord Basal cell carcinoma of skin Benign familial tremor BPPV (benign paroxysmal positional vertigo) Brain tumor (benign) ([facility]) Breast disorder 4 biopsies Bronchitis 01/01/2017 Cancer ([facility]) Basal cell Carpal tunnel syndrome Cataract Chronic [...] 07/07/2018 Performed by Alexander Leach MD at [facility] ENDOSCOPY COSMETIC SURGERY 1984 DISCECTOMY 1989 Partial L4-5 EGD 2001 EYE SURGERY 2014 FOOT SURGERY 2009 Reattachment of tendon left foot with bone graft HIP SURGERY 2003 Excision of bursa left hip HYSTERECTOMY 1983 INJECTION BLOCK EPIDURAL STEROID LUMBAR/SACRAL Left L 5,1 NR Left 12/20/2020 Performed by Shubham Clifton MD at [facility] INJECTION BLOCK NERVE MEDIAL BRANCH right C 4/5,5/6 Right 05/22/2022 Performed by Shubham Clifton MD at [facility] INJECTION BLOCK NERVE MEDIAL BRANCH right C 4/5,5/6 Right 04/17/2022 Performed by Shubham Clifton MD at [facility] INJECTION CAUDAL EPIDURAL WITH CATHETER, STEROID N/A 03/07/2018 Performed by Shubham Clifton MD at [facility] INJECTION LARGE JOINT BURSA: bilat hip Bilateral 12/10/2017 Performed by Shubham Clifton MD at [facility] INJECTION MEDIAL BRANCH NERVE BLOCK Bilateral L 4/5, 5/1 Bilateral 06/28/2017 Performed by Shubham Clifton MD at [facility] INJECTION MEDIAL BRANCH NERVE BLOCK Right L 2/3, 3/4 Right 12/08/2019 Performed by Shubham Clifton MD at [facility] INJECTION MEDIAL BRANCH NERVE BLOCK RIGHT L23 34 Right 01/19/2020 Performed by Shubham Clifton MD at [facility] INJECTION SI JOINT Bilateral 04/09/2017 Performed by Shubham Clifton MD at [facility] INJECTION SI JOINT Bilateral SI Joint Bilateral 05/31/2020 Performed by Shubham Clifton MD at [facility] INJECTION SI JOINT Left SI JOint Left 01/06/2019 Performed by Shubham Clifton MD at [facility] INJECTION SI JOINT Right SI Joint Right 06/09/2019 Performed by Shubham Clifton MD at [facility] INJECTION SPINE TRANSFORAMINAL Left L 4, 5 NR Left 09/24/2017 Performed by Shubham Clifton MD at [facility] INJECTION SPINE TRANSFORAMINAL Left L 5,1 Nroot Left 01/08/2023 Performed by Shubham Clifton MD at [facility] INJECTION SPINE TRANSFORAMINAL Right L 5,1 Nroot Right 11/27/2022 Performed by Shubham Clifton MD at [facility] INJECTION STEROID EPI 1 WITH SEDATION Left 5,1 NR Left 05/08/2019 Performed by Shubham Clifton MD at [facility] KNEE ARTHROSCOPY 2010, 2013 KNEE SURGERY 2010 2013 Arthroscopy bilateral/repair meniscus right X2, left X1 LAMINECTOMY LUMBAR FORAMENOTOMY MULTI LEVEL L1-2 RIGHT/L2-3 BILATERAL/LUMBAR DRAIN INSERTION N/A 07/03/2021 Performed by Corey Chacon MD at [facility] OOPHERECTOMY Bilateral 1984 LUMBAR DISCECTOMY LUMBAR FUSION 2009 L3-5 LUMBAR LAMINECTOMY MICRO LUMBAR DISCECTOMY L5-S1/ FORAMINOTOMY L5-S1 Left 01/14/2017 Performed by Corey Chacon MD at [facility] OOPHORECTOMY 1982 OTHER SURGICAL HISTORY Knee Arthroscopy With Medial Meniscus Repair OTHER SURGICAL HISTORY Spinal Diskectomy RADIO FREQUENCY ABLATION Left L 4/5, 5/1 Left 12/02/2018 Performed by Shubham Clifton MD at [facility] RADIO FREQUENCY ABLATION Left L 4/5, 5/1 Left 07/30/2017 Performed by Shubham Clifton MD at [facility] RADIO FREQUENCY ABLATION Left SI joint Left 03/31/2019 Performed by Shubham Clifton MD at [facility] RADIO FREQUENCY ABLATION Right L2/3, 3/4 Right 03/29/2020 Performed by Shubham Clifton MD at [facility] RADIOFREQUENCY ABLATION SPINAL Left Si joint Left 05/07/2017 Performed by Shubham Clifton MD at [facility] RADIOFREQUENCY ABLATION SPINAL Right C 4/5,5/6 Right 06/26/2022 Performed by Shubham Clifton MD at [facility] RADIOFREQUENCY ABLATION SPINAL RIGHT SI JOINT Right 05/21/2017 Performed by Shubham Clifton MD at [facility] RELEASE CARPAL TUNNEL Left 11/04/2021 Performed by Corey Chacon MD at [facility] SHOULDER SURGERY 2011 Right [...] of breath. PRO AIR, Disp: , Rfl: amitriptyline (ELAVIL) 50 mg tablet, Take 1 tablet (50 mg total) by mouth nightly., Disp: 90 tablet, Rfl: 3 ascorbic acid (VITAMIN C) 500 mg tablet, Take 2 tablets (1,000 mg total) by mouth in the morning., Disp: , Rfl: aspirin 81 mg, Take 1 tablet (81 mg total) by mouth in the morning., Disp: , Rfl: pfipjyc-qvtpeeoepxfib-srakpmqp (EXCEDRIN MIGRAINE) 250-250-65 mg per tablet, Take [...] mouth in the morning., Disp: , Rfl: lisinopril-hydroCHLOROthiazide (ZESTORETIC) 20-12.5 mg per tablet, Take 1 tablet by mouth in the morning., Disp: 90 tablet, Rfl: 3 magnesium 250 mg tablet, Take 2 tablets (500 mg total) by mouth in the morning. Indications: for migraine prevention. At supper time., Disp: , Rfl: methocarbamoL (ROBAXIN) 500 mg tablet, Take 2 tablets (1,000 mg total) by mouth., Disp: , Rfl: mirabegron (MYRBETRIQ) 50 mg tablet extended release 24 hr, Take 1 tablet (50 mg total) by mouth in the morning., Disp: 30 tablet, Rfl: 0 omeprazole (PriLOSEC) 40 mg capsule, Take 1 [...] mg total) before bedtime., Disp: , Rfl: levothyroxine (SYNTHROID, LEVOTHROID) 150 MCG tablet, 6 days a week, Disp: 90 tablet, Rfl: 1 No current facility-administered medications for this visit. Allergies Allergen Reactions Indocin [Indomethacin] Hypotension fainting Lincocin [Lincomycin] Anaphylaxis Lincosamides Anaphylaxis Iulvofbw-4-Bz4 Antimigraine Agents History of cardiovascular and cerebrovascular disease. Triptans increase stroke risk. Adhesive States causes blisters/even paper tape Eggshell [...] has been mentioned above Physical Exam: Vitals: 04/18/25 1324 BP: 114/68 Pulse: 73 Weight: 65.3 kg (143 lb 14.4 oz) Height: 157.5 cm (5' 2.01 ) General: The patient is a pleasant female [...] for evaluation of hypothyroidism and osteoporosis 1. Osteoporosis, unspecified osteoporosis type, unspecified pathological fracture presence - Dexa scan central skeletal; Future 2. Hypothyroidism, unspecified type - levothyroxine (SYNTHROID, LEVOTHROID) 150 MCG tablet; 6 days a week Dispense: 90 tablet; Refill: 1 3. Age-related osteoporosis without current pathological fracture 4. Vitamin D deficiency Tolerating Evenity well No issues reported No recent history of stroke or heart attacks in the last 1 year Tolerating meds well Next DEXA is due December 07, 2025 CC'd Chart Routing History Routing History From: John Johnson MD On: 04/18/2025 01:47 PM To: Gladys Zambrano LPN Priority: Routine Routing Comments: Once she completes 12 months of Evenity okay to send order for Reclast every year. Lab Results Component Value Date CALCIUM 9.5 04/13/2025 CALCIUM 9.6 03/19/2025 CALCIUM 9.3 02/14/2025 CREATININE 1.01 (H) 02/11/2024 CREATININE 1.28 (H) 2023 CREATININE 0.77 03/03/2023 Lab Results Component Value Date VITD25 78.8 07/10/2024 VITD25 58.9 2023 VITD25 66.3 07/07/2022 VITD25 63.4 08/14/2021 Lab Results Component Value Date TSH 1.37 07/10/2024 TSH 0.60 01/11/2024 TSH 3.21 2023 T4 1.24 07/10/2024 T4 1.09 01/11/2024 T4 1.03 2023 T3 4.12 (H) 08/14/2021 T3 3.95 (H) 11/01/2018 T3 4.00 (H) 10/23/2016 CC'd Chart Routing History Routing History From: John Johnson MD On: 04/18/2025 01:47 PM To: Gladys Zambrano LPN Priority: Routine Routing Comments: Once she completes 12 months of Evenity okay to send order for Reclast every year. Refill thyroid prescription. MEDICAL DECISION MAKING- DIAGNOSIS, [...] months with doctor John Johnson MD, MPH, [facility] [address] [place] [id number] Dept: [phone] FAX: [phone] documented in this encounter [facility] 04-18-2025 Instructions John Johnson MD - 04/18/2025 1:30 PM EDT December 08, 2025 DEXA documented in this encounter [facility] 04-18-2025 History of Present illness Narrative Pt here for evenity injection as scheduled. Denies any issues with previous injections. Calcium 9.5. Evenity given SQ to bilat upper arms. Pt tolerated well. Treatment calendar given. Pt dc'd in stable ambulatory condition. [facility] History of Present illness Narrative Images from the original note were not included. Angela Ruth is a 79 y.o. female presents with chief complaint of Follow-up HPI: HPI History of Present Illness The patient presents for evaluation of migraines, a recent fall, carpal tunnel syndrome, and arthritis. She has not recently consulted with her spring fitter helper but acknowledges the need for a follow-up appointment. She recently saw her oncologist and received her infusion. She saw her urologist last month. She is requesting a referral to a local neurologist, Dr. Abernathy, for the management of her migraines. She experienced a fall in her kitchen last week due to tripping over an object, resulting in a persistent soreness on her back from the impact with the stove. The patient has limited counter space in her kitchen, which leads to items being placed on the floor. Her last physical therapy session was approximately 2 to 3 months ago, during which she achieved her therapeutic goals. She continues to perform the prescribed exercises at home. She reports frequent numbness in her thumb and two fingers, which are the same digits she uses to hold her cane. She has wrist splints available at home. Additionally, she expresses concern about potential arthritis in one of her joints. SUBJECTIVE: MEDICATIONS: Current Outpatient Medications Medication Instructions [...] (VITAMIN D-3) 1,000 Units, Daily before breakfast CRANBERRY CONCENTRATE PO 1 tablet, Daily escitalopram (LEXAPRO) 20 mg, Oral, Daily with [...] clean tip and replace cap. hydrALAZINE (APRESOLINE) 50 mg hydrALAZINE (APRESOLINE) 100 mg, Oral, Every morning Lactobacillus (Florajen Women) capsule as directed Orally [...] oxybutynin XL (DITROPAN-XL) 10 mg, Oral, Daily Ubrelvy 100 MG tablet 1 tablet, Daily PRN zafirlukast (ACCOLATE) 20 mg, Oral, 2 times [...] 3 APPENDECTOMY 1965 BREAST BIOPSY x4 - [id number] CHOLECYSTECTOMY 2002 EYE SURGERY 01/21/2023 retinal repair [facility] HEMANGIOMA EXCISION 1946 from upper back HYSTERECTOMY 1984 KNEE SURGERY Bilateral arthroscopic knee surgery x3 (Rx2, Lx1) ([id number]) LAPAROTOMY OOPHERECTOMY 1985 LUMBAR DISCECTOMY 1989 partial LUMBAR DISCECTOMY 01/14/2017 Microdiscetomy L5-S1 LUMBAR DISCECTOMY 07/03/2021 L1-2 partial discectomy, L1-2, L2-3 cleaning out of stenosis in the spinal canal DR. [facility] LUMBAR EPIDURAL INJECTION 12/20/2020 Dr Clifton RADIOFREQUENCY [...] Drug use: Never Depression: Not at risk (02/12/2025) Received from [email or web address] PHQ-2 Total Score: 2 REVIEW OF SYMPTOMS: Review of Systems OBJECTIVE: Visit Vitals BP 124/62 (BP Location: Left arm, Patient Position: Sitting, BP Cuff Size: Adult) Pulse 75 Resp 18 Ht 5' 3 Wt 146 lb SpO2 96% BMI 25.86 kg/m Smoking Status Never BSA 1.72 m Physical Exam Constitutional: Appearance: Normal appearance. [...] List Items Addressed This Visit Essential hypertension ([facility]) Overview Managed by dr cifuentes Relevant Medications lisinopril-hydroCHLOROthiazide 20-12.5 MG tablet Other Visit Diagnoses Intractable migraine with aura without status migrainosus ([facility]) - Primary Relevant Orders Ambulatory referral to Neurology Fall, subsequent encounter Assessment & Plan 1. Migraines. - Referral to Dr. Abernathy, a neurologist, has been initiated for further evaluation and management of migraines. - Patient informed that it takes a few months to get an appointment with Dr. Abernathy. - Discussed the reason for neurologist referral, specifically for migraines. - Patient advised to monitor migraine symptoms and report any changes. 2. Fall. - Recent fall reported, tripped over items in the kitchen, resulting in a sore back. - Advised to maintain a clutter-free environment at home to prevent future falls. - Encouraged to continue daily exercises as previously instructed by physical therapy. - Discussed safety measures to prevent falls, including clearing clutter and practicing exercises. 3. Carpal tunnel syndrome. - Symptoms of numbness in thumb and two fingers consistent with carpal tunnel syndrome. - Recommended use of wrist splints to alleviate symptoms. - Suggested using a walker to help redistribute weight and reduce strain on the right wrist. - Patient advised to wear the splint as much as possible to prevent worsening of symptoms. 4. Arthritis. - Joint pain in the hand attributed to arthritis. - Discussed the nature of arthritis and its impact on the joint. - Patient advised to monitor arthritis symptoms and report any changes. - Suggested possible management strategies for arthritis pain. Medication management. - Prescription for lisinopril has been sent to pharmacy. - Patient advised to continue current medication regimen and report any side effects. Follow-up scheduled in 3 months. documented in this encounter [facility] 03-22-2025 Telephone encounter Note Approvals with refills [facility] 03-22-2025 Miscellaneous Notes Approvals with refills documented in this encounter [facility] 03-21-2025 History of Present illness Narrative Pt here for evenity injection as scheduled. Denies any issues with previous injections. Calcium 9.6. Evenity given SQ to bilat upper arms. Pt tolerated well. Treatment calendar given. Pt dc'd in stable ambulatory condition. documented in this encounter [facility] 02-27-2025 Evaluation + Plan note Associated Problem(s): Urge incontinence We discussed cranberry/D mannose supplements, topical estrogen cream, methenamine, or a prophylactic antibiotic. [facility] 02-27-2025 Miscellaneous Notes Associated Problem(s): Urge incontinence We discussed cranberry/D mannose supplements, topical estrogen cream, methenamine, or a prophylactic antibiotic. documented in this encounter [facility] 02-27-2025 History of Present illness Narrative Images from the original note were not included. [address] [facility] [id number] Patient: Angela Ruth Date of : 1945 [...] June as well as March 2024. Also [facility] 4 prior surgeries on L1-L5. PVR minimal. [...] (benign paroxysmal positional vertigo) Brain tumor (benign) ([facility]) Breast disorder 4 biopsies Bronchitis 01/01/2017 Cancer [...] 07/07/2018 Performed by Alexander Leach MD at [facility] ENDOSCOPY COSMETIC SURGERY 1985 DISCECTOMY 1990 Partial L4-5 EGD 2001 EYE SURGERY 2015 FOOT SURGERY 2009 Reattachment of tendon left foot with bone graft HIP SURGERY 2003 Excision of bursa left hip HYSTERECTOMY 1983 INJECTION BLOCK EPIDURAL STEROID LUMBAR/SACRAL Left L 5,1 NR Left 12/20/2020 Performed by Shubham Clifton MD at [facility] INJECTION BLOCK NERVE MEDIAL BRANCH right C 4/5,5/6 Right 05/22/2022 Performed by Shubham Clifton MD at [facility] INJECTION BLOCK NERVE MEDIAL BRANCH right C 4/5,5/6 Right 04/17/2022 Performed by Shbuham Clifton MD at [facility] CAUDAL EPIDURAL WITH CATHETER, STEROID N/A 03/07/2018 Performed by Shubham Clifton MD at [facility] LARGE JOINT BURSA: bilat hip Bilateral 12/10/2017 Performed by Shubham Clifton MD at [facility] MEDIAL BRANCH NERVE BLOCK Bilateral L 4/5, 5/1 Bilateral 06/28/2017 Performed by Shubham Clifton MD at [facility] MEDIAL BRANCH NERVE BLOCK Right L 2/3, 3/4 Right 12/08/2019 Performed by Shubham Clifton MD at [facility] MEDIAL BRANCH NERVE BLOCK RIGHT L23 34 Right 01/19/2020 Performed by Shubham Clifton MD at [facility] SI JOINT Bilateral 04/09/2017 Performed by Shubham Clifton MD at [facility] SI JOINT Bilateral SI Joint Bilateral 05/31/2020 Performed by Shubham Clifton MD at [facility] SI JOINT Left SI JOint Left 01/06/2019 Performed by Shubham Clifton MD at [facility] SI JOINT Right SI Joint Right 06/09/2019 Performed by Shubham Clifton MD at [facility] SPINE TRANSFORAMINAL Left L 4, 5 NR Left 09/24/2017 Performed by Shubham Clifton MD at [facility] SPINE TRANSFORAMINAL Left L 5,1 Nroot Left 01/08/2023 Performed by Shubham Clifton MD at [facility] SPINE TRANSFORAMINAL Right L 5,1 Nroot Right 11/27/2022 Performed by Shubham Clifton MD at [facility] STEROID EPI 1 WITH SEDATION Left 5,1 NR Left 05/08/2019 Performed by Shubham Clifton MD at [facility] KNEE ARTHROSCOPY 2010, 2013 KNEE SURGERY 2010 2013 Arthroscopy bilateral/repair meniscus right X2, left X1 LAMINECTOMY LUMBAR FORAMENOTOMY MULTI LEVEL L1-2 RIGHT/L2-3 BILATERAL/LUMBAR DRAIN INSERTION N/A 07/03/2021 Performed by Corey Chacon MD at [facility] LAPAROTOMY OOPHERECTOMY Bilateral 1984 LUMBAR DISCECTOMY LUMBAR FUSION 2010 L3-5 LUMBAR LAMINECTOMY MICRO LUMBAR DISCECTOMY L5-S1/ FORAMINOTOMY L5-S1 Left 01/14/2017 [facility] OTHER SURGICAL HISTORY Knee Arthroscopy With Medial Meniscus Repair OTHER SURGICAL HISTORY Spinal Diskectomy RADIO FREQUENCY ABLATION Left L 4/5, 5/1 Left 12/02/2018 Performed by Shubham Clifton MD at [facility] RADIO FREQUENCY ABLATION Left L 4/5, 5/1 Left 07/30/2017 Performed by Shubham Clifton MD at [facility] RADIO FREQUENCY ABLATION Left SI joint Left 03/31/2019 Performed by Shubham Clifton MD at [facility] RADIO FREQUENCY ABLATION Right L2/3, 3/4 Right 03/29/2020 Performed by Shubham Clifton MD at [facility] RADIOFREQUENCY ABLATION SPINAL Left Si joint Left 05/07/2017 Performed by Shubham Clifton MD at [facility] RADIOFREQUENCY ABLATION SPINAL Right C 4/5,5/6 Right 06/26/2022 Performed by Shubham Clifton MD at [facility] RADIOFREQUENCY ABLATION SPINAL RIGHT SI JOINT Right 05/21/2017 Performed by Shubham Clifton MD at [facility] RELEASE CARPAL TUNNEL Left 11/04/2021 Performed by Corey Chacon MD at [facility] SHOULDER SURGERY 2011 Right [...] mg total) by mouth in the morning. [id number]-wbwktxpq (EXCEDRIN MIGRAINE) 250-250-65 mg per tablet Take [...] hospitalization) Allergies: Indocin [indomethacin], Lincocin [lincomycin], Lincosamides, Llxlynoa-0-ih5 antimigraine agents, Adhesive, Eggshell membrane, Influenza virus [...] caffeine as well as addressing constipation with oanr-rto-rhpftau agents. If no improvement can add beta [...] Urinalysis Auto, W/O Microscopy (Completed) Follow-up: Dr. Kramer or me in 3-4 months in [facility] [place] This note was created with the assistance of a speech recognition program. While intending to generate a timely document that accurately reflects the content of the visit, no guarantee can be provided that every grammatical or spelling mistake has been or will be identified or corrected. Thank you for your understanding. [facility] 02/27/25 1515 documented in this encounter [facility] 02-27-2025 Instructions [facility] - 02/27/2025 [...] options and send me a note through [employer] or call and let me know what you want to do. documented in this encounter [facility] 02-19-2025 Telephone encounter Note Approvals with refills [facility] 02-19-2025 Miscellaneous Notes Approvals with refills documented in this encounter [facility] 02-16-2025 History of Present illness Narrative Patient here for Evenity injection Vitals WNL Injection given sub q in the Right arm Patient tolerated well Calendar given for next injection documented in this encounter [facility] 02-12-2025 Telephone encounter Note Nancy- pharmacy from [facility] in [place] calling to let you know that they received rx for remeron and they cannot fill due to drug interaction with amitriptyline prescribed by Dr. Dorsey. It is a category X- cannot fill. Increased risk of serotonin syndrome. She has been on amitriptyline for years. Please advise jil. Thank you. [facility] 02-12-2025 Miscellaneous Notes Nancy- pharmacy from [facility] in [place] calling to let you know that they received rx for remeron and they cannot fill due to drug interaction with amitriptyline prescribed by Dr. Dorsey. It is a category X- cannot fill. Increased risk of serotonin syndrome. She has been on amitriptyline for years. Please advise jil. Thank you. documented in this encounter [facility] 02-12-2025 History of Present illness Narrative [...] mg TID Inderal (tremors) Midrin Migraine cocktails Harviell PRN Occipital nerve blocks (last 03/2021) Propranolol [...] for her balance again. She saw Dr. 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 He referred her to the [facility] for evaluation for possible gamma knife intervention. [...] (benign paroxysmal positional vertigo) Brain tumor (benign) ([facility]) Breast disorder 4 biopsies Bronchitis 01/01/2017 Cancer ([facility]) Basal cell Carpal tunnel syndrome Cataract Chronic [...] 2008 Skin cancer Subjective tinnitus Syncope Varicella 195 Vertigo Visual impairment Glasses Past Surgical History: Procedure Laterality Date ADENOIDECTOMY 1952 APPENDECTOMY 1965 ARM SURGERY 2019. BACK SURGERY Upper Back Surgery BREAST BIOPSY 1979, 1999 BREAST SURGERY 1981 2002 Biopsy four times CHOLECYSTECTOMY 2001 COLONOSCOPY w/ bx N/A 07/07/2018 Performed by Alexander Leach MD at [facility] ENDOSCOPY COSMETIC SURGERY 1984 DISCECTOMY 1989 Partial L4-5 EGD 2001 EYE SURGERY 2014 FOOT SURGERY 2009 Reattachment of tendon left foot with bone graft HIP SURGERY 2003 Excision of bursa left hip HYSTERECTOMY 1983 INJECTION BLOCK EPIDURAL STEROID LUMBAR/SACRAL Left L 5,1 NR Left 12/20/2020 Performed by Shubham Clifton MD at [facility] NERVE MEDIAL BRANCH right C 4/5,5/6 Right 05/22/2022 Performed by Shubham Clifton MD at [facility] BLOCK NERVE MEDIAL BRANCH right C 4/5,5/6 Right 04/17/2022 Performed by Shubham Clifton MD at [facility] CAUDAL EPIDURAL WITH CATHETER, STEROID N/A 03/07/2018 Performed by Shubham Clifton MD at [facility] LARGE JOINT BURSA: bilat hip Bilateral 12/10/2017 Performed by Shubham Clifton MD at [facility] MEDIAL BRANCH NERVE BLOCK Bilateral L 4/5, 5/1 Bilateral 06/28/2017 Performed by Shubham Clifton MD at [facility] MEDIAL BRANCH NERVE BLOCK Right L 2/3, 3/4 Right 12/08/2019 Performed by Shubham Clifton MD at [facility] MEDIAL BRANCH NERVE BLOCK RIGHT L23 34 Right 01/19/2020 Performed by Shubham Clifton MD at [facility] SI JOINT Bilateral 04/09/2017 Performed by Shubham Clifton MD at [facility] SI JOINT Bilateral SI Joint Bilateral 05/31/2020 Performed by Shubham Clifton MD at [facility] SI JOINT Left SI JOint Left 01/06/2019 Performed by Shubham Clifton MD at [facility] SI JOINT Right SI Joint Right 06/09/2019 Performed by Shubham Clifton MD at [facility] SPINE TRANSFORAMINAL Left L 4, 5 NR Left 09/24/2017 Performed by Shubham Clifton MD at [facility] INJECTION SPINE TRANSFORAMINAL Left L 5,1 Nroot Left 01/08/2023 Performed by Shubham Clifton MD at [facility] INJECTION SPINE TRANSFORAMINAL Right L 5,1 Nroot Right 11/27/2022 Performed by Shubham Clifton MD at [facility] INJECTION STEROID EPI 1 WITH SEDATION Left 5,1 NR Left 05/08/2019 Performed by Shubham Clifton MD at [facility] KNEE ARTHROSCOPY 2010, 2013 KNEE SURGERY 2010 2013 Arthroscopy bilateral/repair meniscus right X2, left X1 LAMINECTOMY LUMBAR FORAMENOTOMY MULTI LEVEL L1-2 RIGHT/L2-3 BILATERAL/LUMBAR DRAIN INSERTION N/A 07/03/2021 Performed by Corey Chacon MD at [facility] LAPAROTOMY OOPHERECTOMY Bilateral 1984 LUMBAR DISCECTOMY LUMBAR FUSION 2009 L3-5 LUMBAR LAMINECTOMY MICRO LUMBAR DISCECTOMY L5-S1/ FORAMINOTOMY L5-S1 Left 01/14/2017 Performed by Corey Chacon MD at [facility] OOPHORECTOMY 1982 OTHER SURGICAL HISTORY Knee Arthroscopy With Medial Meniscus Repair OTHER SURGICAL HISTORY Spinal Diskectomy RADIO FREQUENCY ABLATION Left L 4/5, 5/1 Left 12/02/2018 Performed by Shubham Clifton MD at [facility] RADIO FREQUENCY ABLATION Left L 4/5, 5/1 Left 07/30/2017 Performed by Shubham Clifton MD at [facility] RADIO FREQUENCY ABLATION Left SI joint Left 03/31/2019 Performed by Shubham Clifton MD at [facility] RADIO FREQUENCY ABLATION Right L2/3, 3/4 Right 03/29/2020 Performed by Shubham Clifton MD at [facility] RADIOFREQUENCY ABLATION SPINAL Left Si joint Left 05/07/2017 Performed by Shubham Clifton MD at [facility] RADIOFREQUENCY ABLATION SPINAL Right C 4/5,5/6 Right 06/26/2022 Performed by Shubham Clifton MD at [facility] RADIOFREQUENCY ABLATION SPINAL RIGHT SI JOINT Right 05/21/2017 Performed by Shubham Clifton MD at [facility] RELEASE CARPAL TUNNEL Left 11/04/2021 Performed by Corey Chacon MD at [facility] SHOULDER SURGERY 2011 Right [...] Resource Strain: Low Risk (04/02/2024) Received from [facility] Overall Financial Resource Strain (CARDIA) Difficulty of Paying Living Expenses: Not very hard Food Insecurity: No Food Insecurity (02/12/2025) Hunger Screening Food Insecurity - Worry: Never True Food Insecurity - Inability: Never True Transportation Needs: Unknown (04/02/2024) Received from [facility] PRAPARE - Transportation Lack of Transportation (Medical): Not on file Lack of Transportation (Non-Medical): No Physical Activity: Insufficiently Active (04/02/2024) Received from [facility] Exercise Vital Sign Days of Exercise per Week: 3 days Minutes of Exercise per Session: 10 min Stress: Stress Concern Present (04/02/2024) Received from [facility] [place] of Occupational Health - Occupational Stress Questionnaire Feeling of Stress : Rather much Social Connections: Moderately Integrated (04/02/2024) Received from [facility] Social Connection and Isolation Panel [NHANES] Frequency of Communication with Friends and Family: More than three times a week Frequency of Social Gatherings with Friends and Family: More than three times a week Attends Yazidism Services: More than 4 times per year Active Member of Clubs or Organizations: Yes Attends Club or Organization Meetings: More than 4 times per year Marital Status: Interpersonal Safety: Not on file Housing Instability: High Risk (04/02/2024) Received from [facility] Housing Stability Vital Sign Unable to [...] mg total) by mouth in the morning. ztpybbi-qjdrjpgrloxol-sdkhsket (EXCEDRIN MIGRAINE) 250-250-65 mg per tablet Take [...] for her balance again. She saw Dr. 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 He referred her to the [facility] for evaluation for possible gamma knife intervention. [...] 6 months, earlier if needed (SHEILA is timothy) Total time spent was 30 minutes: Preparing to see the patient (e.g., review of tests) Obtaining and/or reviewing separately obtained history Performing a medically appropriate examination and/or evaluation Counseling and educating the patient/family/caregiver Ordering medications, tests, or procedures Referring and communicating with other health hearing care professional (not separately reported) Documenting clinical information in the electronic or other health record Independently interpreting results (not separately reported) and communicating results to the patient/family/caregiver Care coordination (not separately reported) - Yoanna Dorsey DNP, CHACE 02/12/25 8:31 AM [facility] 02/12/25 0831 documented in this encounter [facility] [employer] 02-12-2025 Instructions [facility] Rayo - 02/12/2025 8:00 [...] (VIDYO is fine) documented in this encounter [facility] 02-09-2025 Miscellaneous Notes ----- Message from HAVEN Osullivan sent at 02/09/2025 8:21 AM EDT ----- Regarding: RE: re schedule appt Really any day is fine to reschedule except for Wednesday. ----- Message ----- From: Blanche Aviles CMA Sent: 02/09/2025 7:43 AM EDT To: [place] Subject: re schedule appt Pt called and said that she needs to reschedule her appt for today and when someone calls she can explain when she needs it rescheduled for. Pt left a voicemail yesterday after hours. I can call and reschedule her if you let me know what's available. documented in this encounter [facility] 02-09-2025 Telephone encounter Note ----- Message from HAVEN Osullivan sent at 02/09/2025 8:21 AM EDT ----- Regarding: RE: re schedule appt Really any day is fine to reschedule except for Wednesday. ----- Message ----- From: Blanche Aviles CMA Sent: 02/09/2025 7:43 AM EDT To: [facility] Subject: re schedule appt Pt called and said that she needs to reschedule her appt for today and when someone calls she can explain when she needs it rescheduled for. Pt left a voicemail yesterday after hours. I can call and reschedule her if you let me know what's available. [facility] 01-23-2025 History of Present illness Narrative [...] 1952 APPENDECTOMY 1965 BREAST BIOPSY x4 - [id number] CHOLECYSTECTOMY 2002 EYE SURGERY 01/21/2023 retinal repair [facility] HEMANGIOMA EXCISION 1946 from upper back HYSTERECTOMY 1984 KNEE SURGERY Bilateral arthroscopic knee surgery x3 (Rx2, Lx1) ([id number]) LAPAROTOMY OOPHERECTOMY 1985 LUMBAR DISCECTOMY 1989 partial LUMBAR DISCECTOMY 01/14/2017 Microdiscetomy L5-S1 LUMBAR DISCECTOMY 07/03/2021 L1-2 partial discectomy, L1-2, L2-3 cleaning out of stenosis in the spinal canal [facility] LUMBAR EPIDURAL INJECTION 12/20/2020 Dr Clifton RADIOFREQUENCY [...] Father Dre Baer Stroke Paternal Grandfather Tra Beardsharon Diabetes Paternal Grandmother Sandra Keyur Hearing loss Paternal Grandmother Sandra Keyur Stroke Paternal Grandmother Sandra Keyur Alcohol abuse Father's Brother Jesús Baer Cancer Mother's Sister Jannette Kness Cancer Mother's Sister Nisa Dunham Cancer Mother's [...] Depression - At risk (07/13/2024) Received from [email or web address] PHQ-2 Total Score: 3 REVIEW OF SYMPTOMS: [...] Assessment & Plan documented in this encounter [facility] 01-15-2025 History of Present illness Narrative [...] has previously found relief from coughing with Tessalon Perles. Additionally, she has an albuterol inhaler at [...] 1953 APPENDECTOMY 1965 BREAST BIOPSY x4 - [phone] CHOLECYSTECTOMY 2002 EYE SURGERY 01/21/2023 retinal repair [facility] HEMANGIOMA EXCISION 1946 from upper back HYSTERECTOMY 1984 KNEE SURGERY Bilateral arthroscopic knee surgery x3 (Rx2, Lx1) ([id number]) LAPAROTOMY OOPHERECTOMY 1985 LUMBAR DISCECTOMY 1989 partial LUMBAR DISCECTOMY 01/14/2017 Microdiscetomy L5-S1 LUMBAR DISCECTOMY 07/03/2021 L1-2 partial discectomy, L1-2, L2-3 cleaning out of stenosis in the spinal canal [facility] LUMBAR EPIDURAL INJECTION 12/20/2020 Dr Clifton RADIOFREQUENCY ABLATION 03/29/2020 lumbar ROTATOR CUFF REPAIR Right 2012 SPINAL FUSION 2010 L3-L5 TONSILLECTOMY 1953 TRIGGER FINGER RELEASE Right 1996 release of Dequervan's tendon - R wrist [...] Depression - At risk (07/13/2024) Received from [email or web address] PHQ-2 Total Score: 3 REVIEW OF SYMPTOMS: [...] in 1 month. documented in this encounter [facility] 01-11-2025 History of Present illness Narrative Patient does not have a current calcium completed Patient will have calcium done and will call to re-schedule documented in this encounter [facility] 01-09-2025 History of Present illness Narrative Images from the original note were not included. Subjective Patient ID: Angela Ruth is a 79 y.o. female who presents for Hoarseness Pt reports a many year h/o trouble with her voice. 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 [...] Recurrent falls 11/01/2017 Other specified depressive episodes ([facility]) 02/12/2017 Nocturnal leg cramps 06/04/2023 Mixed stress and urge urinary incontinence 10/29/2020 Major depressive disorder, single episode, in full remission ([facility]) 10/24/2019 Hyperlipidemia ([facility]) 11/08/2015 History of lumbar fusion 12/11/2015 History of depression 2018 Gastroesophageal reflux disease without esophagitis 09/15/2021 Herniation of lumbar intervertebral disc with radiculopathy 01/07/2017 Essential tremor 12/12/2018 Essential hypertension ([facility]) 03/13/2013 Degeneration of lumbosacral intervertebral disc 08/14/2016 Chronic idiopathic constipation 07/10/2019 Bilateral occipital neuralgia 03/02/2019 Asthma ([facility]) 03/26/2016 Age-related osteoporosis without current pathological fracture ([facility]) 06/04/2023 Acquired hypothyroidism ([facility]) 09/29/2019 1st degree AV block 06/10/2021 Bilateral nephrolithiasis 03/02/2023 Stage 3b chronic kidney disease (CKD) ([facility]) 06/04/2023 History of falling 11/04/2023 Lung nodule 02/15/2024 Brain lesion 02/15/2024 Balance problem 06/12/2019 Impingement syndrome of right shoulder 08/14/2011 Resolved Ambulatory Problems Diagnosis Date Noted Adjustment disorder with anxiety ([facility]) 05/04/2023 Migraine without status migrainosus, not intractable [...] 1952 APPENDECTOMY 1965 BREAST BIOPSY x4 - [phone] CHOLECYSTECTOMY 2002 EYE SURGERY 01/21/2023 retinal repair [facility] HEMANGIOMA EXCISION 1946 from upper back HYSTERECTOMY 1984 KNEE SURGERY Bilateral arthroscopic knee surgery x3 (Rx2, Lx1) ([id number]) LAPAROTOMY OOPHERECTOMY 1985 LUMBAR DISCECTOMY 1989 partial LUMBAR DISCECTOMY 01/14/2017 Microdiscetomy L5-S1 LUMBAR DISCECTOMY 07/03/2021 L1-2 partial discectomy, L1-2, L2-3 cleaning out of stenosis in the spinal canal [facility] LUMBAR EPIDURAL INJECTION 12/20/2020 Dr Clifton RADIOFREQUENCY [...] will refer pt to heavenly nevarez at [facility] for tx. Consider laryngology referral for TVF augmentation if no help documented in this encounter [facility] 01-01-2025 History of Present illness Narrative Patient here for UA Dip. Dip added to chart and sent for culture documented in this encounter [facility] 01-01-2025 Telephone encounter Note Are you able to have her come in and give us a specimen in the office for a nurse visit? We can run a test in the office during the nurse visit and send for culture and sensitivity if needed but we will need her to get the specimen while in the office during the nurse visit. [facility] 01-01-2025 Miscellaneous Notes Are you able [...] her know :) documented in this encounter [facility] 01-01-2025 Telephone encounter Note Pt is [...] her back and let her know :) [facility] 12-26-2024 History of Present illness Narrative [...] Flowsheet Row Office Visit from 12/26/2024 in [facility] with Bia Cao MD Hospital Information ED, Hospital or Jail Facility Discharge? ED Patient has been contacted within 1 week of being seen in the ED Yes Diagnosis Fall Discharge Date 12/23/24 Discharged To: Home Setting Discharge Hospital [facility] Engagement Call Start Time 925 Admission [...] 1953 APPENDECTOMY 1965 BREAST BIOPSY x4 - [phone] CHOLECYSTECTOMY 2002 EYE SURGERY 01/21/2023 retinal repair [facility] HEMANGIOMA EXCISION 1946 from upper back HYSTERECTOMY 1984 KNEE SURGERY Bilateral arthroscopic knee surgery x3 (Rx2, Lx1) ([id number]) LAPAROTOMY OOPHERECTOMY 1985 LUMBAR DISCECTOMY 1989 partial LUMBAR DISCECTOMY 01/14/2017 Microdiscetomy L5-S1 LUMBAR DISCECTOMY 07/03/2021 L1-2 partial discectomy, L1-2, L2-3 cleaning out of stenosis [facility] the [facility] LUMBAR EPIDURAL INJECTION 12/20/2020 Dr Clifton RADIOFREQUENCY [...] Depression - At risk (07/13/2024) Received from [email or web address] PHQ-2 Total Score: 3 REVIEW OF SYMPTOMS: [...] disorder, single episode, in full remission (CMS/HCC) Relevant Medications mirtazapine (Remeron) 15 MG tablet [...] Medication change (Remeron) documented in this encounter [facility] 12-25-2024 Telephone encounter Note Sorry I forgot to add I scheduled her an appt. [facility] 12-25-2024 Miscellaneous Notes Sorry I forgot to add I scheduled her an appt. Please call to check on her This is Angela Ruth. My phone number is [phone] for I am calling to let Dr Sutherland know that I fell on Wednesday night and was seen in, ER. Thank you very much, byjenna. documented in this encounter [facility] 12-25-2024 Telephone encounter Note Please call to check on her [facility] 12-25-2024 Telephone encounter Note This is Angelajennifer Ruth. My phone number is [phone] for I am calling to let Dr Sutherland know that I fell on Wednesday night and was seen in, ER. Thank you very much, maría. [facility] 12-19-2024 History of Present illness Narrative Images from the original note were not included. [address] [place] [id number] Patient: Angela Ruth Date of : 1945 [...] (benign paroxysmal positional vertigo) Brain tumor (benign) ([facility]) Breast disorder 4 biopsies Bronchitis 01/01/2017 Cancer ([facility]) Basal cell Carpal tunnel syndrome Cataract Chronic [...] 07/07/2018 Performed by Alexander Leach MD at [facility] ENDOSCOPY COSMETIC SURGERY 1984 DISCECTOMY 1989 Partial L4-5 EGD 2001 EYE SURGERY 2014 FOOT SURGERY 2009 Reattachment of tendon left foot with bone graft HIP SURGERY 2003 Excision of bursa left hip HYSTERECTOMY 1984 INJECTION BLOCK EPIDURAL STEROID LUMBAR/SACRAL Left L 5,1 NR Left 12/20/2020 Performed by Shubham Clifton MD at [facility] BLOCK NERVE MEDIAL BRANCH right C 4/5,5/6 Right 05/22/2022 Performed by Shubham Clifton MD at [facility] BLOCK NERVE MEDIAL BRANCH right C 4/5,5/6 Right 04/17/2022 Performed by Shubham Clifton MD at [facility] INJECTION CAUDAL EPIDURAL WITH CATHETER, STEROID N/A 03/07/2018 Performed by Shubham Clifton MD at [facility] LARGE JOINT BURSA: bilat hip Bilateral 12/10/2017 Performed by Shubham Clifton MD at [facility] MEDIAL BRANCH NERVE BLOCK Bilateral L 4/5, 5/1 Bilateral 06/28/2017 Performed by Shubham Clifton MD at [facility] MEDIAL BRANCH NERVE BLOCK Right L 2/3, 3/4 Right 12/08/2019 Performed by Shubham Clifton MD at [facility] MEDIAL BRANCH NERVE BLOCK RIGHT L23 34 Right 01/19/2020 Performed by Shubham Clifton MD at [facility] SI JOINT Bilateral 04/09/2017 Performed by Shubham Clifton MD at [facility] SI JOINT Bilateral SI Joint Bilateral 05/31/2020 Performed by Shubham Clifton MD at [facility] SI JOINT Left SI JOint Left 01/06/2019 Performed by Shubham Clifton MD at [facility] INJECTION SI JOINT Right SI Joint Right 06/09/2019 Performed by Shubham Clifton MD at [facility] INJECTION SPINE TRANSFORAMINAL Left L 4, 5 NR Left 09/24/2017 Performed by Shubham Clifton MD at [facility] INJECTION SPINE TRANSFORAMINAL Left L 5,1 Nroot Left 01/08/2023 Performed by Shubham Clifton MD at [facility] INJECTION SPINE TRANSFORAMINAL Right L 5,1 Nroot Right 11/27/2022 Performed by Shubham Clifton MD at [facility] INJECTION STEROID EPI 1 WITH SEDATION Left 5,1 NR Left 05/08/2019 Performed by Shubham Clifton MD at [facility] KNEE ARTHROSCOPY 2010, 2013 KNEE SURGERY 2010 2013 Arthroscopy bilateral/repair meniscus right X2, left X1 LAMINECTOMY LUMBAR FORAMENOTOMY MULTI LEVEL L1-2 RIGHT/L2-3 BILATERAL/LUMBAR DRAIN INSERTION N/A 07/03/2021 Performed by Corey Chacon MD at [facility] LAPAROTOMY OOPHERECTOMY Bilateral 1984 LUMBAR DISCECTOMY LUMBAR FUSION 2009 L3-5 LUMBAR LAMINECTOMY MICRO LUMBAR DISCECTOMY L5-S1/ FORAMINOTOMY L5-S1 Left 01/14/2017 Performed by Corey Chacon MD at [facility] OOPHORECTOMY 1982 OTHER SURGICAL HISTORY Knee Arthroscopy With Medial Meniscus Repair OTHER SURGICAL HISTORY Spinal Diskectomy RADIO FREQUENCY ABLATION Left L 4/5, 5/1 Left 12/02/2018 Performed by Shubham Clifton MD at [facility] RADIO FREQUENCY ABLATION Left L 4/5, 5/1 Left 07/30/2017 Performed by Shubham Clifton MD at [facility] RADIO FREQUENCY ABLATION Left SI joint Left 03/31/2019 Performed by Shubham Clifton MD at [facility] RADIO FREQUENCY ABLATION Right L2/3, 3/4 Right 03/29/2020 Performed by Shubham Clifton MD at [facility] RADIOFREQUENCY ABLATION SPINAL Left Si joint Left 05/07/2017 Performed by Shubham Clifton MD at [facility] RADIOFREQUENCY ABLATION SPINAL Right C 4/5,5/6 Right 06/26/2022 Performed by Shubham Clifton MD at [facility] RADIOFREQUENCY ABLATION SPINAL RIGHT SI JOINT Right 05/21/2017 Performed by Shubham Clifton MD at [facility] RELEASE CARPAL TUNNEL Left 11/04/2021 Performed by Corey Chacon MD at [facility] 2012 Right rotator cuff [...] mg total) by mouth in the morning. yaskiwz-yxndgwdfitpyr-gspqzgul (EXCEDRIN MIGRAINE) 250-250-65 mg per tablet Take [...] caffeine as well as addressing constipation with zbbt-tgr-ecqlxia agents. If no improvement can add beta [...] for your understanding. documented in this encounter [facility] 12-12-2024 Telephone encounter Note Approvals with refills [facility] 12-12-2024 Miscellaneous Notes Approvals with refills documented in this encounter [facility] 12-08-2024 History of Present illness Narrative [...] List Items Addressed This Visit Essential hypertension ([facility]) Overview Managed by dr cifuentes Age-related osteoporosis without current pathological fracture ([facility]) Other Visit Diagnoses Urinary frequency - Primary [...] skin lesions today. documented in this encounter [facility] 12-06-2024 History of Present illness Narrative [...] COLONOSCOPY w/ bx N/A 07/07/2018 Performed by Alxeander Leach MD at [facility] ENDOSCOPY COSMETIC SURGERY 1985 DISCECTOMY 1989 Partial L4-5 EGD 2001 EYE SURGERY 2014 FOOT SURGERY 2009 Reattachment of tendon left foot with bone graft HIP SURGERY 2003 Excision of bursa left hip HYSTERECTOMY 1983 INJECTION BLOCK EPIDURAL STEROID LUMBAR/SACRAL Left L 5,1 NR Left 12/20/2020 Performed by Shubham Clifton MD at [facility] BLOCK NERVE MEDIAL BRANCH right C 4/5,5/6 Right 05/22/2022 Performed by Shubham Clifton MD at [facility] BLOCK NERVE MEDIAL BRANCH right C 4/5,5/6 Right 04/17/2022 Performed by Shubham Clifton MD at [facility] INJECTION CAUDAL EPIDURAL WITH CATHETER, STEROID N/A 03/07/2018 Performed by Shubham Clifton MD at [facility] LARGE JOINT BURSA: bilat hip Bilateral 12/10/2017 Performed by Shubham Clifton MD at [facility] MEDIAL BRANCH NERVE BLOCK Bilateral L 4/5, 5/1 Bilateral 06/28/2017 Performed by Shubham Clifton MD at [facility] MEDIAL BRANCH NERVE BLOCK Right L 2/3, 3/4 Right 12/08/2019 Performed by Shubham Clifton MD at [facility] MEDIAL BRANCH NERVE BLOCK RIGHT L23 34 Right 01/19/2020 Performed by Shubham Clifton MD at [facility] SI JOINT Bilateral 04/09/2017 Performed by Shubham Clifton MD at [facility] INJECTION SI JOINT Bilateral SI Joint Bilateral 05/31/2020 Performed by Shubham Clifton MD at [facility] INJECTION SI JOINT Left SI JOint Left 01/06/2019 Performed by Shubham Clifton MD at [facility] INJECTION SI JOINT Right SI Joint Right 06/09/2019 Performed by Shubham Clifton MD at [facility] SPINE TRANSFORAMINAL Left L 4, 5 NR Left 09/24/2017 Performed by Shubham Clifton MD at [facility] SPINE TRANSFORAMINAL Left L 5,1 Nroot Left 01/08/2023 Performed by Shubham Clifotn MD at [facility] SPINE TRANSFORAMINAL Right L 5,1 Nroot Right 11/27/2022 Performed by Shubham Clifton MD at [facility] STEROID EPI 1 WITH SEDATION Left 5,1 NR Left 05/08/2019 Performed by Shubham Clifton MD at [facility] KNEE ARTHROSCOPY 2010, 2013 KNEE SURGERY 2010 2013 Arthroscopy bilateral/repair meniscus right X2, left X1 LAMINECTOMY LUMBAR FORAMENOTOMY MULTI LEVEL L1-2 RIGHT/L2-3 BILATERAL/LUMBAR DRAIN INSERTION N/A 07/03/2021 Performed by Corey Chacon MD at [facility] LAPAROTOM[facility] OOPHERECTOMY Bilateral 1983 LUMBAR DISCECTOMY LUMBAR FUSION 2009 L3-5 LUMBAR LAMINECTOMY MICRO LUMBAR DISCECTOMY L5-S1/ FORAMINOTOMY L5-S1 Left 01/14/2017 Performed by Corey Chacon MD at [facility] OOPHORECTOMY 1982 OTHER SURGICAL HISTORY Knee Arthroscopy With Medial Meniscus Repair OTHER SURGICAL HISTORY Spinal Diskectomy RADIO FREQUENCY ABLATION Left L 4/5, 5/1 Left 12/02/2018 Performed by Shubham Clifton MD at [facility] RADIO FREQUENCY ABLATION Left L 4/5, 5/1 Left 07/30/2017 Performed by Shubham Clifton MD at [facility] RADIO FREQUENCY ABLATION Left SI joint Left 03/31/2019 Performed by Shubham Clifton MD at [facility] RADIO FREQUENCY ABLATION Right L2/3, 3/4 Right 03/29/2020 Performed by Shubham Clifton MD at [facility] RADIOFREQUENCY ABLATION SPINAL Left Si joint Left 05/07/2017 Performed by Shubham Clifton MD at [facility] RADIOFREQUENCY ABLATION SPINAL Right C 4/5,5/6 Right 06/26/2022 Performed by Shubham Clifton MD at [facility] RADIOFREQUENCY ABLATION SPINAL RIGHT SI JOINT Right 05/21/2017 Performed by Shubham Clifton MD at [facility] RELEASE CARPAL TUNNEL Left 11/04/2021 Performed by Corey Chacon MD at [facility] SHOULDER SURGERY 2011 Right [...] mouth in the morning., Disp: , Rfl: wjytxdn-juuizeyenpeof-dgggqhlp (EXCEDRIN MIGRAINE) 250-250-65 mg per tablet, Take [...] months with doctor John Johnson MD, MPH, [facility] [address] [address] Dept: [phone] FAX: [phone] documented in this encounter [facility] 11-29-2024 Telephone encounter Note Approvals with refills [facility] 11-29-2024 Miscellaneous Notes Approvals with refills documented in this encounter [facility] 11-06-2024 Telephone encounter Note Approvals with refills [facility] 11-06-2024 Miscellaneous Notes Approvals with refills documented in this encounter [facility] 10-30-2024 History of Present illness Narrative [...] empty stomach Orally Wed thru Wed, skip Wednesday, Disp: , Rfl: [...] (four) hours., Disp: 18 g, Rfl: 11 fxkckdijla-vulndxhcqlecs-epznree e 50-325-40 MG tablet, Take 1 tablet [...] 1952 APPENDECTOMY 1965 BREAST BIOPSY x4 - [id number] CHOLECYSTECTOMY 2002 EYE SURGERY 01/21/2023 retinal repair [facility] HEMANGIOMA EXCISION 194 from upper back HYSTERECTOMY 1984 KNEE SURGERY Bilateral arthroscopic knee surgery x3 (Rx2, Lx1) ([id number]) LAPAROTOMY OOPHERECTOMY 1985 LUMBAR DISCECTOMY 1990 partial LUMBAR DISCECTOMY 01/14/2017 Microdiscetomy L5-S1 LUMBAR DISCECTOMY 07/03/2021 L1-2 partial discectomy, L1-2, L2-3 cleaning out of stenosis in the spinal canal [facility] LUMBAR EPIDURAL INJECTION 12/20/2020 Dr Clifton RADIOFREQUENCY ABLATION 03/29/2020 lumbar ROTATOR CUFF REPAIR Right 2012 SPINAL FUSION 2010 L3-L5 TONSILLECTOMY 195 TRIGGER FINGER RELEASE Right 1995 release of Dequervan's tendon - R wrist TRIGGER FINGER RELEASE Right 05/16/2018 Family History Family History Problem Relation Name Age of Onset Hypertension Mother Chloe Baer Cancer Mother Chloe Beardsharon COPD Father Dre Beardsharon Cancer Father Dre Keyur Arthritis Father Dre Beardsharon Asthma Father Dre Beardsharon Stroke Paternal Grandfather Tra Keyur Diabetes Paternal Grandmother Sandra Keyur Hearing loss Paternal Grandmother Sandra Baer Stroke Paternal Grandmother Sandra Baer Alcohol abuse Father's Brother Jesús Keyur Cancer Mother's Sister Jannette Pily Cancer Mother's [...] Santo Christianson DPM documented in this encounter [facility] 10-30-2024 Instructions Santo Christianson DPM - 10/30/2024 1:45 PM EST As noted documented in this encounter [facility] 10-06-2024 Telephone encounter Note Voicemail left for Angela at [phone]. Call back number given. 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 My note was forward to Dr. Hoover for review. At this time we recommend follow up and new imaging in 1 year. ZACKARY Hood, BEET END SUPERVISOR, DISTILLERY LABORER Certified Nurse Practitioner [facility] Work Phone: 10-06-2024 Miscellaneous Notes Voicemail left for Angela at [phone]. Call back number given. 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 My note was forward to Dr. Hoover for review. At this time we recommend follow up and new imaging in 1 year. ZACKARY Hood, BEET END SUPERVISOR, DISTILLERY LABORER Certified Nurse Practitioner General Call Caller : Angela Contact Reason for Call : Did you speak with Dr. Hoover regarding her most recent appt? Patient requesting return call ? Yes documented in this encounter [facility] 10-04-2024 Telephone encounter Note General Call Caller : Angela Contact Reason for Call : Did you speak with Dr. Hoover regarding her most recent appt? Patient requesting return call ? Yes [facility] 09-26-2024 Note HNO ID: [id number] Author: ROSE VELASQUEZ APRN.DISTILLERY LABORER Service: ? Author Type: Nurse Practitioner Type: Progress Notes Filed: 09/26/2024 15:27 Note Text: [facility] NEURO-ONCOLOGY OUTPATIENT CLINIC NOTE [...] side to side (more content not included)... [facility] 09-26-2024 History of Present illness Narrative Images from the original note were not included. [facility] [place] [facility] NEURO-ONCOLOGY OUTPATIENT CLINIC NOTE [...] DATE OF EXAM: Sep 26 2024 12:29PM SARMAD 0295 - MRI BRAIN WO/W IVCON / [...] petrous ridge presumed meningioma compared to 03/02/2024. Parking Ramp Attendant: ALLYSSA Transcribe Date/Time: Sep 26 2024 2:10P [...] - All questions were answered. Rose Velasquez APRN.DISTILLERY LABORER Certified Nurse Practitioner cc: Mandi Hoover MD - Epic documented in this encounter [facility] 09-26-2024 History of Present illness Narrative Radiology [...] TIME: 11:27 AM documented in this encounter [facility] 09-26-2024 Note HNO ID: [id number] Author: JESSICA HOWELL RN Service: Nursing Author [...] DATE: September 26, 2024 TIME: 11:27 AM [facility] 08-14-2024 History of Present illness Narrative [...] past. She does not currently have an lens polisher hand. SUBJECTIVE: MEDICATIONS: Current Outpatient Medications Medication Instructions albuterol HFA 90 mcg/act inhaler 2 puffs, Inhalation, Every 4 hours alendronate (FOSAMAX) 70 mg, Oral, Every 7 days amitriptyline (ELAVIL) 50 mg, Oral, Nightly Ascorbic Acid (vitamin C) 1000 MG tablet Every 24 hours aspirin 81 mg, Oral, Daily RT atorvastatin (LIPITOR) 40 mg, Oral, Daily buprenorphine (Butrans) 7.5 MCG/HR 1 patch, Transdermal, Weekly qdsrdqsxgf-nbjjiuglbidjf-zzkjvsm e 50-325-40 MG tablet 1 tablet, Oral, [...] provided. She does not currently have an lens polisher hand but is open to seeing one. A COVID-19 test was conducted today, which returned negative. She is advised to stay hydrated. If her condition deteriorates, a repeat COVID-19 test will be necessary. documented in this encounter [facility] 08-08-2024 History of Present illness Narrative [...] (Butrans) 7.5 MCG/HR 1 patch, Transdermal, Weekly pveodtkozj-zplxrrzuzgopl-xkpywfx e 50-325-40 MG tablet 1 tablet, Oral, [...] 1952 APPENDECTOMY 1965 BREAST BIOPSY x4 - [id number] CHOLECYSTECTOMY 2002 EYE SURGERY 01/21/2023 retinal repair [facility] HEMANGIOMA EXCISION 1946 from upper back HYSTERECTOMY 1984 KNEE SURGERY Bilateral arthroscopic knee surgery x3 (Rx2, Lx1) ([id number]) LAPAROTOMY OOPHERECTOMY 1985 LUMBAR DISCECTOMY 1989 partial LUMBAR DISCECTOMY 01/14/2017 Microdiscetomy L5-S1 LUMBAR DISCECTOMY 07/03/2021 L1-2 partial discectomy, L1-2, L2-3 cleaning out of stenosis in the spinal canal [facility] LUMBAR EPIDURAL INJECTION 12/20/2020 Dr Clifton RADIOFREQUENCY ABLATION 03/29/2020 lumbar ROTATOR CUFF REPAIR Right 2012 SPINAL FUSION 2010 L3-L5 TONSILLECTOMY 1953 TRIGGER FINGER RELEASE Right 1996 release of Dequervan's tendon - R wrist [...] Never Depression: At risk (07/13/2024) Received from [email or web address] PHQ-2 Total Score: 3 REVIEW OF SYMPTOMS: [...] 25 mg were renewed and sent to [facility] pharmacy. Follow-up The patient will follow up in 4 months. documented in this encounter [facility] 07-10-2024 History of Present illness Narrative [...] consulted with Dr. Romano, a urologist in [place], some time ago but has not sought [...] (Butrans) 7.5 MCG/HR 1 patch, Transdermal, Weekly klpleuoajh-gddunjzsuogei-gjcxvvf e 50-325-40 MG tablet 1 tablet, Oral, [...] 1953 APPENDECTOMY 1965 BREAST BIOPSY x4 - [id number] CHOLECYSTECTOMY 2002 EYE SURGERY 01/21/2023 retinal repair [facility] HEMANGIOMA EXCISION 1946 from upper back HYSTERECTOMY 1984 KNEE SURGERY Bilateral arthroscopic knee surgery x3 (Rx2, Lx1) ([id number]) LAPAROTOMY OOPHERECTOMY 1985 LUMBAR DISCECTOMY 1989 partial LUMBAR DISCECTOMY 01/14/2017 Microdiscetomy L5-S1 LUMBAR DISCECTOMY 07/03/2021 L1-2 partial discectomy, L1-2, L2-3 cleaning out of stenosis in the spinal canal [facility] LUMBAR EPIDURAL INJECTION 12/20/2020 Dr Clifton RADIOFREQUENCY ABLATION 03/29/2020 lumbar ROTATOR CUFF REPAIR Right 2012 SPINAL FUSION 2010 L3-L5 TONSILLECTOMY 1953 TRIGGER FINGER RELEASE Right 1996 release of Dequervan's tendon - R wrist [...] Depression: Not at risk (03/10/2024) Received from [email or web address], [email or web address] PHQ-2 Total Score: 0 REVIEW OF SYMPTOMS: [...] by Dr. Márquez documented in this encounter [facility] 04-04-2024 Instructions Anson Ennis MD - 04/04/2024 12:35 PM EDT - obtain follow up MRI brain wwo in 6 months - please follow up with your forest fire control officer (we do not think the etiology of your hearing loss is due to your meningioma) - our team will notify Dr. Bia Cao regarding these findings; we recommend investigating other etiologies of imbalance in Mrs. Ruth documented in this encounter [facility] 04-04-2024 Nurse Note Additional intake questions: Has the patient had fever, nausea, vomiting, diarrhea, constipation, fatigue for > 1 week? No Does the patient have a decreased appetite? No Does patient want to see a Drilling Contractor? No (yes to any of above refer patient to schedulers for dietitian appointment) ) Does patient have any new or increased numbness or tingling of extremities? No Is patient interested in fertility information? No Does patient need any prescription refills? No Does patient have an advanced directive in place? Yes, no copy found in [facility] Patient referred to [facility] Electronically Signed By: Josette Sheppard MA [facility] 04-04-2024 Nurse Note Additional intake questions: Has the patient had fever, nausea, vomiting, diarrhea, constipation, fatigue for > 1 week? No Does the patient have a decreased appetite? No Does patient want to see a Drilling Contractor? No (yes to any of above refer patient to schedulers for dietitian appointment) ) Does patient have any new or increased numbness or tingling of extremities? No Is patient interested in fertility information? No Does patient need any prescription refills? No Does patient have an advanced directive in place? Yes, no copy found in [facility] Patient referred to [facility] Electronically Signed By: Josette Sheppard MA documented in this encounter [facility] 04-04-2024 History of Present illness Narrative Images from the original note were not included. SECTION OF SKULL BASE SURGERY MINIMALLY INVASIVE CRANIAL BASE & PITUITARY SURGERY PROGRAM Jessica Caro [facility] [place] CC: Patient Care Team: Bia Cao as PCP ([facility]) Corey Chacon MD as NI Referring Team (Neurosurgery) ASSESSMENT: [...] ([place] preference). - follow up with forest fire control officer for hearing loss which is unrelated to [...] Patient is accompanied by her granddaughter (her batch mixing truck driver) and great grand daughter). The [...] contrast and shows a 1.2 cm R HEALTH AND FITNESS INSTRUCTOR contrast-enhancing lesion concerning for either schwannoma or meningioma- no associated mass effect or edema. The patient takes ASA 81 mg daily for cardioprotection per her PCP. The patient has been using a cane for the last 5-6 years. The patient reports that ~6 weeks ago, she walked into her garage door and fell. The patient has not seen an forest fire control officer or a vestibular therapist. Past Medical History: [...] contrast and shows a 1.2 cm R HEALTH AND FITNESS INSTRUCTOR contrast-enhancing lesion extra-axial mass arising from the right posterior petrous ridge with no significant mass effect and not abutting the right vestibular cochlear complex. documented in this encounter [facility] 04-04-2024 Note HNO ID: [id number] Author: MANDI HOOVER MD Service: ? Author Type: Physician Type: Progress Notes Filed: 04/05/2024 17:50 Note Text: SECTION OF SKULL BASE SURGERY MINIMALLY INVASIVE CRANIAL BASE AND PITUITARY SURGERY PROGRAM Jessica Car[facility] [place] CC: Patient Care Team: Bia Cao as PCP ([facility]) Corey Chacon MD as NI Referring Team (Neurosurgery) ASSESSMENT: [...] 6 months with a repeat MRI scan ([place] preference) and clinic visit with one of our skull base team advance practice providers ([place] preference). - follow up with forest fire control officer for hearing loss which is unrelated to [...] Patient is accompanied by her granddaughter (her batch mixing truck driver) and great grand daughter). The [...] contrast and shows a 1.2 cm R HEALTH AND FITNESS INSTRUCTOR contrast-enhancing lesion concerning for either schwannoma or meningioma- no associated mass effect or edema. The patient takes ASA 81 mg daily for cardioprotection per her PCP. The patient has been using a cane for the last 5-6 years. The patient reports that ~6 weeks ago, she walked into her garage door and fell. The patient has not seen an forest fire control officer or a vestibular therapist. Past Medical History: [...] mg (VYTORIN) 10-40 (more content not included)... [facility] 03-28-2024 Telephone encounter Note Called patient to schedule an appointment. No ans/left message to call the office back. Appointment scheduled: 04/04/2024 10:30 AM (Arrive by 10:15 AM) Mandi Hoover MD [facility] [place] Etelvina Trujillo PAC [facility] 03-28-2024 Miscellaneous Notes Called patient to schedule an appointment. No ans/left message to call the office back. Appointment scheduled: 04/04/2024 10:30 AM (Arrive by 10:15 AM) Mandi Hoover MD [facility] [place] RAMAN Alonso Time Frame: First available Provider: Kiko Landrum Soni Referring: Corey Chacon MD Images to be requested from [facility] Dx: Right CPA mass Patient: Angela Ruth Address: Angela Ruth [id number] [place] [address] [facility] [id number] Per Triage: HISTORY OF PRESENT ILLNESS Angela [...] extracranial soft tissues are unremarkable. Rose Velasquez APRN.DISTILLERY LABORER March 28, 2024 Referral source: Corey Chacon MD ([facility]) Reason for visit: consideration of gamma knife for 1.2 cm enhancing lesion at right cerebelloponitine angle with leading differential including vestibular schwannoma and meningioma External records: Sent with referral and pulled from [facility] Triage: Required, forwarded to [facility] by telephone encounter sent to [facility] Scheduling Triage. Financial clearance: Not required to schedule documented in this encounter [facility] 03-28-2024 Telephone encounter Note Time Frame: First available Provider: Kiko Landrum Soni Referring: Corey Chacon MD Images to be requested from [facility] Dx: Right CPA mass Patient: Angela Ruth Address: Angela Ruth [id number] [place] [address] [place] [address] Per Triage: HISTORY OF PRESENT ILLNESS Angela [...] extracranial soft tissues are unremarkable. Rose Velasquez APRN.DISTILLERY LABORER March 28, 2024 [facility] 03-24-2024 Telephone encounter Note Referral source: Corey Chacon MD ([facility]) Reason for visit: consideration of gamma knife for 1.2 cm enhancing lesion at right cerebelloponitine angle with leading differential including vestibular schwannoma and meningioma External records: Sent with referral and pulled from [facility] Triage: Required, forwarded to [facility] by telephone encounter sent to [facility] Scheduling Triage. Financial clearance: Not required to schedule [facility] Evaluation note Diagnosis General weakness- Primary Other malaise and fatigue History of falling documented in this encounter [facility] HealthcareEvaluation note* Diagnosis Mixed hyperlipidemia (CMS/HCC)- Primary Mixed hyperlipidemia Stress incontinence of urine documented in this encounter [facility] HealthcareEvaluation note* Diagnosis General weakness- Primary Other malaise and fatigue History of falling documented in this encounter [facility] HealthcareEvaluation note* Diagnosis General weakness- Primary Other malaise and fatigue History of falling documented in this encounter [facility] HealthcareEvaluation note* Diagnosis Brain mass [G93.89]- Primary Unspecified condition of brain [facility] Diagnosis Intracranial meningioma (HCC)- Primary Benign neoplasm of cerebral meninges Sensorineural hearing loss (SNHL) of right ear, unspecified hearing status on contralateral side Dizziness Dizziness and giddiness documented in this [facility] Diagnosis Intracranial meningioma (HCC)- Primary Benign neoplasm of cerebral meninges Benign neoplasm of meninges (HCC) Benign neoplasm of cerebral meninges [facility] Diagnosis Benign neoplasm of meninges (HCC)- Primary Benign neoplasm of cerebral meninges Dizziness Dizziness and giddiness documented [facility] this [facility] Diagnosis Benign neoplasm of meninges (HCC) Benign neoplasm of cerebral meninges [facility] Diagnosis Dermatophytosis of nail- Primary Dystrophic nail Other specified disease of nail Pain around toenail, right foot Pain around toenail, left foot documented in this encounter [facility] HealthcareEvaluation note* Diagnosis Hoarse- Primary Dysphonia Purulent postnasal drainage Primary insomnia Persistent disorder of initiating or maintaining sleep Gastroesophageal reflux disease without esophagitis Esophageal reflux documented in this encounter [facility] HealthcareEvaluation note* Diagnosis Hyperlipidemia, unspecified hyperlipidemia type ([facility]/HCC) documented in this encounter [facility] HealthcareEvaluation note* Diagnosis Urinary frequency- Primary Dysuria Chronic idiopathic constipation Unspecified constipation Chronic right-sided thoracic back pain Chronic right-sided thoracic back pain documented in this encounter [facility] HealthcareEvaluation note* Diagnosis Acute cystitis without hematuria- Primary documented in this encounter [facility] HealthcareEvaluation note* Diagnosis Acute bronchitis, unspecified organism- Primary Seasonal allergic rhinitis due to pollen documented in this encounter [facility] HealthcareEvaluation note* Diagnosis Anemia, unspecified type- Primary documented in this encounter [facility] HealthcareEvaluation note* Diagnosis Hypothyroidism, unspecified type- Primary Age-related osteoporosis without current pathological fracture Vitamin D deficiency documented in this encounter [facility] System[facility]* Diagnosis Osteoporosis, unspecified osteoporosis type, unspecified pathological fracture presence- Primary documented in this encounter [facility] SystemEvaluation note* Diagnosis Urinary frequency- Primary Essential hypertension (CMS/HCC) Unspecified essential hypertension Age-related osteoporosis without current pathological fracture ([facility]/HCC) documented in this encounter [facility] HealthcareEvaluation note* Diagnosis Acute cystitis without hematuria- Primary documented in this encounter [facility] HealthcareEvaluation note* Diagnosis Gastroesophageal reflux disease without [...] depressive disorder, single episode, in full remission ([facility]) Major depressive disorder, 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 Fall, subsequent encounter Gastroesophageal reflux disease without esophagitis Esophageal reflux documented in this encounter [facility]* Diagnosis Hematuria, unspecified type documented in this encounter [facility]* Diagnosis Acute cystitis with hematuria- Primary documented in this encounter [facility]* Diagnosis Mixed hyperlipidemia ([facility]) Mixed hyperlipidemia Anxiety Anxiety state, unspecified documented [...] fracture presence- Primary [facility] Diagnosis Migraine without aura and without status migrainosus, not intractable- Primary Essential tremor Cervical radiculopathy Brachial neuritis or radiculitis nos Bilateral occipital neuralgia [facility] Diagnosis Essential hypertension ([facility])- Primary Unspecified essential hypertension documented in this encounter [facility]* Diagnosis Urge incontinence- Primary Frequent UTI Urinary tract infection, site not specified documented in this encounter [facility]* Diagnosis Urge incontinence- Primary Frequent UTI Urinary tract infection, site not specified Osteoporosis, unspecified osteoporosis type, unspecified pathological fracture presence- Primary documented in this encounter [facility]* Diagnosis Moderate persistent asthma, unspecified whether complicated ([facility]) documented in this encounter [facility] HealthcareEvaluation note* Diagnosis Intractable migraine with aura without status migrainosus ([facility])- Primary Fall, subsequent encounter Essential hypertension ([facility]) Unspecified essential hypertension documented in this encounter [facility] HealthcareEvaluation note* Diagnosis Urge incontinence- Primary Frequent UTI Urinary tract infection, site not specified Osteoporosis, unspecified osteoporosis type, unspecified pathological fracture presence- Primary documented in this encounter [facility] SystemEvaluation note* Diagnosis Urge incontinence- Primary Frequent UTI Urinary tract infection, site not specified Osteoporosis, unspecified osteoporosis type, unspecified pathological fracture presence- Primary Hypothyroidism, unspecified type Age-related osteoporosis without current pathological fracture Vitamin D deficiency documented in this encounter [facility] SystemEvaluation note* Diagnosis Urge incontinence- Primary Frequent UTI Urinary tract infection, site not specified Kidney stones- Primary Calculus of kidney Urge incontinence Osteoporosis, unspecified osteoporosis type, unspecified pathological fracture presence- Primary documented in this encounter [facility] SystemEvaluation note* Diagnosis Urge incontinence- Primary Frequent UTI Urinary tract infection, site not specified Kidney stones- Primary Calculus of kidney Urge incontinence documented in this encounter [facility] note* Diagnosis Primary insomnia Persistent disorder of initiating or maintaining sleep Major depressive disorder, single episode, in full remission Major depressive disorder, 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 documented in this encounter [facility] HealthcareHistory of Present illness Narrative* Abran Maldonado RN - 01/12/2025 2:20 PM EST Pt here for evenity as scheduled. Calcium level 9.8. This is patients first evenity injection. Instructed on purpose/potential side effects of injection. Printed education given to patient. Injectiongiven SQ to two diff injection sites. Pt tolerated well. Dc'd in stable condition with family. Treatment calendar given. [facility] System[facility]ructionsNot on file [facility] System[facility]ructionsNot on file documented in this [facility] SystemInstructionsNot on file documented in this [facility] SystemInstructionsNot on file documented in this [facility] SystemInstructionsNot on file documented in this [facility] SystemInstructionsNot on file documented in this [facility] SystemInstructionsNot on file documented in this [facility] SystemInstructionsNot on file documented in this encounter[facility] SystemReason for referral (narrative)* Consultation (Routine) - Authorized Specialty Diagnoses / Procedures Referred By Violette t Referred To Contact Urology Diagnoses Urinary frequency Procedures MI OFFICE/OUTPATIENT NEW HIGH MDM 60 MINUTES Bia Cao MD [address] [place] [address] Maria C Kramer MD [address] [place] [address] Referral ID Status Reason Start Date Expiration Date Visits Requested Visits Authorized [id number] Authorized Specialty Services Required 07/10/2024 01/06/2025 1 [...] Documents on File Type Date Recorded 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 07/16/2021 3:45 PM Living Will 07/16/2021 3:40 PM Date Activated Date Inactivated Comments 03/02/2023 4:15 AM 03/03/2023 3:57 PM Date Activated Date Inactivated Comments 07/03/2021 9:57 AM 07/10/2021 6:07 PM Date Activated Date Inactivated Comments 01/04/2018 4:32 PM 01/06/2018 6:44 PM Date Activated Date Inactivated Comments 01/14/2017 8:37 AM 01/15/2017 5:28 PM Documents on File Type Date Recorded 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 07/16/2021 3:45 PM Living Will 07/16/2021 3:40 [...] W/O W/CONTRAST MATERIAL Mandi Hoover MD [address] [place] [address] [facility] [place] [address] Referral ID Status Reason Start Date Expiration Date Visits Requested Visits Authorized [id number] Pending Review Auto-Generat ed Referral 08/28/2024 06/08/2025 1 1 Specialty Diagnoses / Procedures Referred By Contac t Referred To Contact MR IMAGING Diagnoses Benign neoplasm of meninges (HCC) Procedures MRI BRAIN WO/W IVCON MRI BRAIN BRAIN STEM W/O W/CONTRAST MATERIAL Rose Velasquez APRN.CNP [address] [place] [address] [facility] [place] [address] Referral ID Status Reason Start Date Expiration Date Visits Requested Visits Authorized [id number] New Request Auto-Generat ed Referral 09/26/2024 10/26/2025 1 1 Referral ID Status Reason Start Date Expiration Date V isits Requested Visits Authorized [id number] Closed Auto-Generate d Referral 08/28/2024 06/08/2025 1 1 Additional Source Comments INFORMATION SOURCE (unrecogn ized section and content) DATE CREATED AUTHOR 05/16/2018 [facility] DATE CREATED AUTHOR AUTHOR'S ORGANIZ ATION 06/21/2019 [facility] DATE CREATED AUTHOR AUTHOR'S ORGANIZ ATION 11/13/2022 [facility] DATE CREATED AUTHOR AUTHOR'S ORGANIZ ATION 12/07/2022 [facility] dical Specialist DATE CREATED AUTHOR AUTHOR'S ORGANIZ ATION 10/08/2024 [facility] DATE CREATED AUTHOR AUTHOR'S ORGANIZ ATION 04/10/2025 [facility] dical Specialists [facility] DATE CREATED AUTHOR AUTHOR'S ORGANIZ ATION 04/21/2025 [facility] DATE CREATED AUTHOR AUTHOR'S ORGANIZ ATION 06/14/2025 [facility] DATE CREATED AUTHOR AUTHOR'S ORGANIZ ATION 06/15/2025 [facility] DATE CREATED AUTHOR AUTHOR'S ORGANIZ ATION 06/23/2025 [facility] Reason for Visit (unrecogniz ed section and content) Reason Comments Injection evenity Specialty Diagnoses / Procedures Referred By Contac t Referred To Contact Diagnoses Osteoporosis, unspecified osteoporosis type, unspecified pathological fracture presence Procedures MI ROMOSOZUMAB INJECTION John Johnson MD [address] [facility] [place] [address] Phone: tel: fax: [facility] On[facility] [address] [place] [id number] Phone: tel: fax: Referral ID Status Reason Start Date Expiration Date V isits Requested Visits Authorized [id number] Authorized 12/06/2024 12/06/2025 12 12 Reason Comments Outpatient Infusion Evenity Specialty Diagnoses / Procedures Referred By Contac t Referred To Contact Physical Therapy Diagnoses Muscle weakness (generalized) Procedures TREATMENT Bia Cao MD [address] [place] [address] Jonny Salazar, PT [address] [place] [address] Referral ID Status Reason Start Date Expiration Date V isits Requested Visits Authorized [id number] Authorized 12/08/2023 06/05/2024 99 99 Reason Comments Med Refill Reason Comments Received Outside Medical Records Externa l referral to Neurological [place] triage Nurse Triage Call Appointment Reason Comments Consult Reason Comments New Patient Intracranial Meningi brandon Reason Comments Radiology MRI Specialty Diagnoses / Procedures Referred By Contac t Referred To Contact MR IMAGING Diagnoses Benign neoplasm of meninges (HCC) Procedures MRI BRAIN WO/W IVCON MRI BRAIN BRAIN STEM W/O W/CONTRAST MATERIAL Mandi Hoover MD [address] [place] [address] [place] [address] Referral ID Status Reason Start Date Expiration Date V isits Requested Visits Authorized [id number] Closed Auto-Generate d Referral 08/28/2024 06/08/2025 1 [...] Hoarseness Specialty Diagnoses / Procedures Referred By Contac t Referred To Contact Otolaryngology Diagnoses Hoarse Procedures MI OFFICE/OUTPATIENT NEW HIGH MDM 60 MINUTES Tae Hardy, TIESHA [address] [place] [address] Phone: tel: fax: Katerin Alvarado MD [address] [facility] [address] [place] [address] Phone: tel: fax: Referral ID Status Reason Start Date Expiration Date V isits Requested Visits Authorized [id number] Closed Specialty Services Required 12/26/2024 06/24/2025 1 1 Reason Comments Sore Throat Cough Reason Comments Follow-up 1 month follow up Reason Comments Follow-up Reason Comments Follow-up Thy Reason Onset Date Comments outgoing referral 05/08/2025 Reason Comments Injection Evenity Care Teams (unrecognized sec tion and content) Shoe Folder Relationship Specialty Start Date End Date Jacob Viveros PCP - [employer] 11/22/22 Bia Cao MD [address] [place] [address] PCP - General Family Medicine 04/29/23 Shoe Folder Relationship Specialty Start Date End Date JackelineJacob mancini PCP - [employer] 11/22/22 Bia Cao MD [address] [place] [address] PCP - General Family Medicine 04/29/23 Shoe Folder Relationship Specialty Start Date End Date LortonJacob mancini PCP - [employer] 11/22/22 Bia Cao MD [address] [place] [address] PCP - General Family Medicine 04/29/23 Shoe Folder Relationship Specialty Start Date End Date LortonJacob Anny PCP - [employer] 11/22/22 Bia Cao MD [address] [place] [address] PCP - General Family Medicine 04/29/23 Shoe Folder Relationship Specialty Start Date End Date Jaocb Viveros PCP - [employer] 11/22/22 Bia Cao MD [address] [place] [address] PCP - General Family Medicine 04/29/23 Shoe Folder Relationship Specialty Start Date End Date Jacob Viveros PCP - [employer] 11/22/22 Bia Cao MD [address] [place] [address] PCP - General Family Medicine 04/29/23 Shoe Folder Relationship Specialty Start Date End Date (Hist), No Pcp PCP - General 11/04/17 Corey Chacon MD [address] [address] [place] Referring Team Neurosurgery 03/24/24 Shoe Folder Relationship Specialty Start Date End Date (Hist), No Pcp PCP - General 11/04/17 Corey Chacon MD [address] [address] [place] Referring Team Neurosurgery 03/24/24 Shoe Folder Relationship Specialty Start Date End Date (Hist), No Pcp PCP - General 11/04/17 Corey Chacon MD [address] [facility] [address] [address] [place] Referring Team Neurosurgery 03/24/24 Shoe Folder Relationship Specialty Start Date End Date (Hist), No Pcp PCP - General 11/04/17 Corey Chacon MD NI Referring Team Neurosurgery 03/24/24 Shoe Folder Relationship Specialty Start Date End Date (Hist), No Pcp PCP - General 11/04/17 Corey Chacon MD NI Referring Team Neurosurgery 03/24/24 Shoe Folder Relationship Specialty Start Date End Date (Hist), No Pcp PCP - General 11/04/17 Corey Chacon MD [place] Referring Team Neurosurgery 03/24/24 Shoe Folder Relationship Specialty Start Date End Date Jacob Viveros PCP - [employer] 11/22/21 Bia Cao MD [address] [place] [address] PCP - General Family Medicine 04/29/23 Shoe Folder Relationship Specialty Start Date End Date LortonJacob mancini PCP - [employer] 11/22/21 Bai Cao MD [address] [place] [address] PCP - General Family Medicine 04/29/23 Shoe Folder Relationship Specialty Start Date End Date JackelineAdeline mancinihan Anny PCP - [employer] 11/22/21 Bia Cao MD [address] [place] [address] PCP - General Family Medicine 04/29/23 Shoe Folder Relationship Specialty Start Date End Date LortonBernadette manciniJacob Anny PCP - [employer] 11/22/21 Bia Cao MD [address] [place] [address] PCP - General Family Medicine 04/29/23 Shoe Folder Relationship Specialty Start Date End Date LortonAdeline mancinihan Anny PCP - [employer] 11/22/21 Bia Cao MD [address] [place] [address] PCP - General Family Medicine 04/29/23 Shoe Folder Relationship Specialty Start Date End Date Jackeline Jacob Mccormick PCP - [employer] 11/22/21 Bia Cao MD [address] [place] [address] PCP - General Family Medicine 04/29/23 Shoe Folder Relationship Specialty Start Date End Date Jacob Viveros PCP - [employer] 11/22/21 Bia Cao MD [address] [place] [address] PCP - General Family Medicine 04/29/23 Shoe Folder Relationship Specialty Start Date End Date Jacob Viveros PCP - [employer] 11/22/21 Bia Cao MD [address] [place] [address] PCP - General Family Medicine 04/29/23 Shoe Folder Relationship Specialty Start Date End Date Lorton Jacob Mccormick PCP - [employer] 11/22/21 Bia Cao MD [address] [place] [address] PCP - General Family Medicine 04/29/23 Shoe Folder Relationship Specialty Start Date End Date Bia Cao MD PCP - General Family Medicine 02/05/23 Shoe Folder Relationship Specialty Start Date End Date Bia Coa MD PCP - General Family Medicine 02/05/23 Shoe Folder Relationship Specialty Start Date End Date Bia Cao MD [address] [place] [address] PCP - General Family Medicine 04/29/23 Bia Cao MD [address] [place] [address] PCP - [employer] 11/22/21 Shoe Folder Relationship Specialty Start Date End Date Bia Cao MD [address] [place] [address] PCP - General Family Medicine 04/29/23 Bia Cao MD [address] [place] [address] PCP - [employer] 11/22/21 Shoe Folder Relationship Specialty Start Date End Date Bia Cao MD [address] [place] [address] PCP - General Family Medicine 04/29/23 Bia Cao MD [address] [place] [address] PCP - Aet 11/22/21 Shoe Folder Relationship Specialty Start Date End Date Bia Cao MD [address] [place] [address] PCP - General Family Medicine 04/29/23 Bia Cao MD [address] [place] [place] [address] PCP - Aet 11/22/21 Shoe Folder Relationship Specialty Start Date End Date Bia Cao MD PCP - General Family Medicine 02/05/23 Shoe Folder Relationship Specialty Start Date End Date Bia Cao MD PCP - General Family Medicine 02/05/23 Shoe Folder Relationship Specialty Start Date End Date Bia Cao MD [address] [facility] [place] [address] PCP - General Family Medicine 04/29/23 Bia Cao MD [address] [facility] [place] [address] PCP - [employer] 11/22/21 Shoe Folder Relationship Specialty Start Date End Date Bia Cao MD [address] [place] [address] PCP - General Family Medicine 04/29/23 Bia Cao MD [address] [facility] [place] [address] PCP - [employer] 11/22/21 Shoe Folder Relationship Specialty Start Date End Date Bia Cao MD [address] [facility] [place] [address] PCP - General Family Medicine 04/29/23 Bia Cao MD [address] [facility] [place] [address] PCP - [employer] 11/22/21 Shoe Folder Relationship Specialty Start Date End Date Bia Cao MD [address] [facility] [place] [address] PCP - General Family Medicine 04/29/23 Bia Cao MD [address] [facility] [place] [address] PCP - [employer] 11/22/21 Shoe Folder Relationship Specialty Start Date End Date Bia Cao MD [address] [facility] [place] [address] PCP - General Family Medicine 04/29/23 Bia Cao MD [address] [facility] [place] [address] PCP - [employer] 11/22/21 Shoe Folder Relationship Specialty Start Date End Date Bia Cao MD [address] [place] [address] PCP - General Family Medicine 04/29/23 Bia Cao MD [address] [facility] [place] [address] PCP - [employer] 11/22/21 Shoe Folder Relationship Specialty Start Date End Date Bia Cao MD [address] [facility] [place] [address] PCP - General Family Medicine 04/29/23 Bia Cao MD [address] [facility] [place] [address] PCP - [employer] 11/22/21 Shoe Folder Relationship Specialty Start Date End Date Bia Cao MD [address] [facility] [place] [address] PCP - General Family Medicine 04/29/23 Bia Cao MD [address] [facility] [place] [address] PCP - [employer] 11/22/21 Shoe Folder Relationship Specialty Start Date End Date Bia Cao MD [address] [facility] [place] [address] PCP - General Family Medicine 04/29/23 Bia Cao MD [address] [facility] [place] [address] PCP - [employer] 11/22/21 Shoe Folder Relationship Specialty Start Date End Date Bia Cao MD [address] [place] [facility] [address] PCP - General Family Medicine 04/29/23 Bia Cao MD [address] [facility] [place] [address] PCP - [employer] 11/22/21 Shoe Folder Relationship Specialty Start Date End Date Bia Cao MD PCP - General Family Medicine 02/05/23 Shoe Folder Relationship Specialty Start Date End Date Bia Cao MD PCP - General Family Medicine 02/05/23 Shoe Folder Relationship Specialty Start Date End Date Bia Cao MD [address] [facility] [place] [address] PCP - General Family Medicine 04/29/23 Bia Cao MD [address] [facility] [place] [address] PCP - [employer] 11/22/21 Shoe Folder Relationship Specialty Start Date End Date Bia Cao MD PCP - General Family Medicine 02/05/23 Shoe Folder Relationship Specialty Start Date End Date Bia Cao MD PCP - General Family Medicine 02/05/23 Shoe Folder Relationship Specialty Start Date End Date Bia Cao MD PCP - General Family Medicine 02/05/23 Shoe Folder Relationship Specialty Start Date End Date Bia Cao MD PCP - General Family Medicine 02/05/23 Shoe Folder Relationship Specialty Start Date End Date Bia Cao MD [address] [place] [address] PCP - General Family Medicine 04/29/23 Bia Cao MD [address] [place] [address] PCP - [employer] 11/22/21 Shoe Folder Relationship Specialty Start Date End Date Bia Cao MD PCP - General Family Medicine 02/05/23 Shoe Folder Relationship Specialty Start Date End Date Bia Cao MD PCP - General Family Medicine 02/05/23 Shoe Folder Relationship Specialty Start Date End Date Bia Cao MD PCP - General Family Medicine 02/05/23 Shoe Folder Relationship Specialty Start Date End Date Bia Cao MD PCP - General Family Medicine 02/05/23 Shoe Folder Relationship Specialty Start Date End Date Bia Cao MD [address] [place] [id number] PCP - General Family Medicine 04/29/23 Bia Cao MD [address] [place] [address] PCP - [employer] 11/22/21 Source Comments (unrecognize d section and content) In the event this informatio n is protected by the Federal Confidentiality of Alcohol and Drug Abuse Patient Records regulations: The Federal rules restrict any use of the information to criminally investigate or prosecute any alcohol or drug abuse patient.[facility] the event this information is protected by the Federal Confidentiality of Alcohol and Drug Abuse Patient Records regulations: The Federal rules restrict any use of the information to criminally investigate or prosecute any alcohol or drug abuse patient.[facility] the event this information is protected by the Federal Confidentiality of Alcohol and Drug Abuse Patient Records regulations: The Federal rules restrict any use of the information to criminally investigate or prosecute any alcohol or drug abuse patient.[facility] the event this information is protected by the Federal Confidentiality of Alcohol and Drug Abuse Patient Records regulations: The Federal rules restrict any use of the information to criminally investigate or prosecute any alcohol or drug abuse patient.[facility] the event this information is protected by the [facility] Confidentiality of Alcohol and Drug Abuse Patient Records regulations: The Federal rules restrict any use of the information to criminally investigate or prosecute any alcohol or drug abuse patient.[facility] the event this information is protected by the Federal Confidentiality of Alcohol and Drug Abuse Patient Records regulations: The Federal rules restrict any use of the information to criminally investigate or prosecute any alcohol or drug abuse patient.[facility] FOR RECORDS PERTAINING TO PATIENTS WHO ARE [...] BE BASED ON THE PRIMARY CLINICAL RECORDS. [facility] [employer] [facility]. provides no warranty or guarantee of the accuracy or completeness of information in this document.
--- NOTE | 2025-07-05 08:57 | PM.CN ---
Consult Note: HPI Data of Consult Patient: known to practice within the last 3 years Consult date: 07/05/25 Requesting Physician: Nisa Galarza NP Primary Care Provider: TRUE DAVIS Consult Narrative Reason for consult: f/u Narrative: Angela Ruth a 80 year old female presents for evaluation of chronic back pain unresponsive to greater than 6 weeks of PT/HEP, ice, heat, tylenol and NSAIDs. pain secondary to lumbar DDD, lumbar spondylosis, sacroilitis. Hx of lumbar surgery. utilizing Tylenol, aleve, butrans and methocarbamol with benefit without side effects. denies recent falls. Pain today 6/10 aching in middle back. pain increases to 8/10 with standing, walking, twisting, showering, sleeping. denies falls since last visit. recently underwent left SIJ injection with significant ongoing relief. prior thoracic xray shows degnerative changes. recently underwent bilateral T8-9 T9-10 MBB with significant pain while anesthetized, preop pain up to 8/10 post op pain 0/10 with vacuuming, driving, standing, walking. cc:: CC: Nisa Galarza NP [facility] PFS Medical History TMJ (dislocation of temporomandibular joint) ?S03.00XA - Dislocation of jaw, unspecified side, initial encounter (ICD-10) Neck pain ?M54.2 - Cervicalgia (ICD-10) Back pain ?M54.9 - Dorsalgia, unspecified (ICD-10) Osteoarthritis ?M19.90 - Unspecified osteoarthritis, unspecified site (ICD-10) H/O psychiatric care ?Z92.89 - Personal history of other medical treatment (ICD-10) Heartburn ?R12 - Heartburn (ICD-10) Acid reflux ?K21.9 - Gastro-esophageal reflux disease without esophagitis (ICD-10) Hypothyroid ?E03.9 - Hypothyroidism, unspecified (ICD-10) Kidney stones ?N20.0 - Calculus of kidney (ICD-10) Asthma ?J45.909 - Unspecified asthma, uncomplicated (ICD-10) High cholesterol ?E78.00 - Pure hypercholesterolemia, unspecified (ICD-10) Hypertension ?I10 - Essential (primary) hypertension (ICD-10) Surgical History H/O shoulder surgery ?Z98.890 - Other specified postprocedural states (ICD-10) H/O excision of hemangioma ?Z98.890 - Other specified postprocedural states (ICD-10) ?Z86.018 - Personal history of other benign neoplasm (ICD-10) H/O basal cell carcinoma excision ?Z98.890 - Other specified postprocedural states (ICD-10) ?Z85.828 - Personal history of other malignant neoplasm of skin (ICD-10) H/O lumbosacral spine surgery ?Z98.890 - Other specified postprocedural states (ICD-10) H/O foot surgery ?Z98.890 - Other specified postprocedural states (ICD-10) H/O hand surgery ?Z98.890 - Other specified postprocedural states (ICD-10) H/O wrist surgery ?Z98.890 - Other specified postprocedural states (ICD-10) History of cholecystectomy ?Z90.49 - Acquired absence of other specified parts of digestive tract (ICD-10) H/O breast biopsy ?Z98.890 - Other specified postprocedural states (ICD-10) History of appendectomy ?Z90.49 - Acquired absence of other specified parts of digestive tract (ICD-10) History of tonsillectomy and adenoidectomy ?Z90.89 - Acquired absence of other organs (ICD-10) Meds Home Medications and Allergies Home Medications ?Medication ?Instructions ?Recorded ?Confirmed ?Type acetaminophen 650 mg 1,300 mg PO Q8H PRN pain 07/07/23 07/02/25 History tablet,extended release (Arthritis Pain Relief (acetaminophen) ER) albuterol 90 mcg/actuation aerosol 90 mcg inhalation .every 4 hours 07/07/23 07/02/25 History inhaler PRN shortness of breath or wheezing ascorbic acid (vitamin C) 500 mg 500 mg PO BID 07/07/23 07/02/25 History tablet,extended release (C Complex) aspirin 81 mg tablet,delayed 81 mg PO DAILY 07/07/23 07/02/25 History release (Adult Aspirin Regimen) atorvastatin 40 mg tablet 40 mg PO DAILY 07/07/23 07/02/25 History calcium carbonate (Calcium 600) 600 mg PO DAILY 07/07/23 07/02/25 History carvedilol 25 mg tablet 25 mg PO BID 07/07/23 07/02/25 History cholecalciferol (vitamin D3) 50 200 mcg PO DAILY 07/07/23 07/02/25 History mcg (2,000 unit) tablet (Vitamin D3) escitalopram oxalate 20 mg tablet 20 mg PO DAILY 07/07/23 07/02/25 History fenofibrate 160 mg tablet 160 mg PO DAILY 07/07/23 07/02/25 History fexofenadine 180 mg tablet 180 mg PO DAILY 07/07/23 07/02/25 History hydralazine 100 mg tablet 100 mg PO TID 07/07/23 07/02/25 History levothyroxine 150 mcg capsule 150 mcg PO DAILY 07/07/23 07/02/25 History lisinopril 20 1 tab PO DAILY 07/07/23 07/02/25 History mg-hydrochlorothiazide 12.5 mg tablet magnesium 250 mg tablet 250 mg PO DAILY 07/07/23 07/02/25 History jjwfvajb-smj-rldth acid 0.4 1 tab PO DAILY 07/07/23 07/02/25 History mg-lycopene 300 mcg-lutein 250 mcg tablet (Centrum Silver) omeprazole 40 mg capsule,delayed 40 mg PO DAILY 07/07/23 07/02/25 History release oxybutynin chloride 10 mg 10 mg PO DAILY 07/07/23 07/02/25 History tablet,extended release 24 hr methocarbamol 500 mg tablet See Rx Instructions .Route 04/04/25 07/02/25 Rx .COMPLEX #120 tabs romosozumab-aqqg 210 mg/2.34 mg subcut 04/23/25 History mL(105 mg/1.17 mL x2)subcutaneous syringe (Evenity) buprenorphine 7.5 mcg/hour weekly 1 patch transdermal QWEEK #4 ea 06/28/25 07/02/25 Rx transdermal patch (Butrans) Allergies Allergy/AdvReac Type Severity Reaction Status Date / Time adhesive tape Allergy unknown Verified 07/02/25 10:46 Influenza Virus Vaccines Allergy unknown Verified 07/02/25 10:46 lincomycin (From Lincocin) Allergy Unknown Verified 07/02/25 10:46 Penicillins Allergy Unknown Verified 07/02/25 10:46 Exam Constitutional Documenting provider has reviewed patient's vital signs: yes Common normals: no apparent distress, oriented x3, healthy appearing, alert and well nourished General appearance: cooperative HENMT Common normals: normocephalic, hearing grossly normal bilaterally and moist oral mucous membranes Head and scalp: normocephalic Eye Common normals: PERRL Pupil: PERRL Neck & C-Spine Common normals: full ROM General: normal visual inspection Other: negative facet loading, negative spurlings, strength 5/5 in BUE Chest Common normals: inspection of chest normal Respiratory Common normals: normal respiratory effort, no retractions and no use of accessory muscles Back & Pelvis Thoracic spine/upper back: ROM limited, pain with ROM and thoracic spinal tenderness T-spine tenderness location: T7, T8, T9 and T10 Lumbar spine/lower back: ROM limited, pain with ROM and straight leg raise negative bilaterally Sacroiliac joints: SI joints normal Other: bilaterally negative eri(patricks), gaenslens, thigh thrust, compression test facet pain noted to T7-10 Extremity Other: no pain with internal and external log roll of right hip Neuro Common normals: oriented x3 Sensorium/orientation: alert Gait (neuro): assistive device used cane Motor exam: no movement abnormalities noted Psych Common normals: mental status grossly normal, thought process normal, cooperative, affect normal, speech normal and activity/motor behavior normal Speech: normal speech Thought process: normal thought process Results Additional Findings Additional findings: If on a controlled substance or opioids, I have checked an OAR[place] report on this patient and there are no aberrancies noted in the prescribing history.??If on a controlled substance or opioid a drug screen was completed and reviewed within the last year, and if there has not been a drug screen completed we ordered one today to monitor higher risk, state monitored pain medication use. As part of providing excellent, safe, comprehensive care, the following was completed at our patient's visit: 1. A medication reconciliation and review to ensure accurate knowledge of current/active medications, including asking our patients to inform us about any lugy-lva-nososks medications or herbal remedies/nutritional supplements/alternative remedies. 2. A review to specifically ensure our patients have had annual screening for screening for depression, screening for tobacco use, and screening for unhealthy alcohol use. For concerning screenings had a discussion with the patient, provided patient education, and recommended follow-up with primary care provider when appropriate. If patient noted with a risk of falling, they received education on strength, gait, and balance training to prevent future risk of falling. Portions of this note may have been carried over from the previous visit and updated as appropriate. Please note this office utilizes paper charting in addition to the electronic medical record. A list of current medications, vitals, and PMH is available there as the clinical staff outside of myself do not have access to [facility] charting during the clinic day operations. As part of providing quality comprehensive care the current medications, vitals, and PMH were reviewed in the paper chart. Assessment and Plan Assessment and Plan (1) Thoracic spondylosis: Assessment and Plan: The patient has had over 3 months of moderate to severe middle back pain with functional impairment and inadequate response to conservative care including NSAIDS (unless there are contraindication such as concurrent blood thinners), multiple oral or topical pain medications, and home exercise program/physical therapy.? Patient has completed >6 weeks of guided home exercise program and/or formal physical therapy program without relief of their symptoms.? The Oswestry Disability Index was completed, and the patient scored a 47%.? The patient noted the following:?? moderate to severe pain impacting ADLs, sitting, standing, walking, sleeping, social life, travel We discussed the risks and benefits of the procedure with the patient, and we are NOT planning on using sedation as outlined in the guidelines from Medicare unless there is a documented reason that sedation would be strongly recommended.??The procedure will be completed with fluoroscopic guidance.? (2) Sacroiliitis: (3) Lumbar radiculopathy: (4) Lumbar stenosis with neurogenic claudication: (5) Chronic prescription opiate use: Assessment and Plan: I feel these medications are improving the patient's quality of life and allow them to tolerate activities of daily living as well as participate in recreational activity.? The patient does not report intolerable side effects. The patient is NOT opioid naive and non-pharmacologic and non-opioid treatment has failed to significantly relieve the patient's pain and improve functionality. The patient has a diagnosis that is related to a somatic or visceral pain etiology. ? ?? I reviewed with the patient the potential risks and side effects with the use of? opioid medications including but not limited to respiratory depression,? sedation, and even . Within the last 12 months I have verified the patient has access to naloxone should? these effects occur. The patient was advised to let? their family know they had Naloxone in case they would need to administer? the medication. I advised the patient to avoid the use of any other? sedation substances including alcohol, THC, and benzodiazepines while? taking opioid medications due to the risk of compounding side effects and? detrimental outcomes. within the last 12 months I have reviewed the DISC INSPECTOR, pain treatment agreement and urine drug screen.? ?? A drug screen was completed within the last year, and no aberrancies were noted regarding their use of controlled substances. The patient understands they are subject to the terms and conditions of the pain contract that they have signed. ? ?? I have checked an OARRS report on this patient today and there are no aberrancies noted in the prescribing history.? Plan bilateral T8,9 T9,10 mbb x2 working towards RFA for axial facet mediated back pain continue current medications continue HEP as tolerated f/u after each injection
== END 2025-07-05 08:37 | disposition home or self-care (01) ==
LOC: PM 08:36
PROVIDERS: PCP Family Medicine; Visit Provider Nurse Practitioner
DX: M47.814 Spondylosis without myelopathy or radiculopathy, thoracic region (principal); M46.1 Sacroiliitis, not elsewhere classified; M54.16 Radiculopathy, lumbar region; M48.062 Spinal stenosis, lumbar region with neurogenic claudication; Z79.891 Long term (current) use of opiate analgesic
CPT/HCPCS: G0463

== ENCOUNTER 2025-08-06 08:55 | Day surgery (SDC) | payer MEDICARE, SELFPAY ==
--- OUTSIDE RECORDS SUMMARY | 2025-08-06 08:58 | XMS_ITS | Encounter Summary ---
Author Organization [facility] Address [address] [place] [address] Care Team Providers Care Environmental Science Instructor Name Role Phone Bia Cao MD Primary Care Provider [phone] Bia Cao MD Unavailable Reason for Visit * Reason Comments Med Refill Encounter Details Date Type Department Care Team (Late st Contact Info) Description 07/25/2025 Refill [facility] [place] [facility] [address] [facility] [place] [address] Bia Cao MD [address] [facility] [place] [address] Gastroesophageal reflux disease without esophagitis Social History Tobacco Use Types Packs/Day Years [...] often do you attend chur ch or alevism services? More than 4 times per year 04/02/2024 Do you belong to any clubs o r organizations such as religion groups, unions, fraternal or athletic groups, or [...] Patient Health Questionnaire-2 Score 0 08/14/2024 [facility] - Occupational Stress Questionnaire Answer Date [...] place to sleep or slept in a group home (including now)? No 04/02/2024 Comments Unknown Sex and Gender Information Value Date Recorded Sex Assigned at Not on file Legal Sex Female 7:26 PM EDT Gender Identity Not on file Sexual Orientation Not on file documented as of this encounter Miscellaneous Notes * Telephone Encounter - Bia Cao MD - 07/25/2025 9:59 AM EDT Approvals with refills documented in this encounter Plan of Treatment Upcoming Encounters Date Type Department Care Team (Late st Contact Info) Description 11/07/2025 1:40 PM EST Office Visit [facility] [address] [place] [address] Bia Cao MD [address] [facility] [place] [address] documented as of this encounter Goals Goal Patient Goal Type Associated Problems Recent Progress Patient-Stated? Author Help patient manage antidepressant medication Care Plan Patient on antidepressant monitoring plan No Bia Cao MD documented as of this encounter Visit Diagnoses Diagnosis Gastroesophageal reflux disease without esophagitis Esophageal reflux documented in this encounter Additional Health Concerns Active Problems Noted Date Diagnosed Date Patient on antidepressant monitoring plan 2023 Assessment Noted Time PHQ-9 Depression Total Score: 7 12/06/19 24 2:00 PM EST documented as of this encounter Care Teams Environmental Science Instructor Relationship Specialty Start Date End Date Bia Cao MD [address] [facility] [place] [address] PCP - General Family Medicine 04/29/23 Bia Cao MD [address] [facility] [place] [address] PCP - [employer] 11/22/21 documented as of this encounter
--- OUTSIDE RECORDS SUMMARY | 2025-08-06 08:58 | XMS_ITS | Encounter Summary ---
Author Organization [facility] tem Address [id number] [address] [place] [address] Care Team Providers Care Color Technician Name Role Phone Bia Cao MD Primary Care Provider [phone] Encounter Details Date Type Department Care Team (Late st Contact Info) Description 07/16/2025 Results Follow-Up [facility] Adult Endocrinology, A Department of [facility] [address] [facility] [address] [place] [address] Jovany Johnson MD [address] [facility] [place] [address] Calcium Social History Tobacco Use Types Packs/Day Years Used Date Smoking Tobacco: Never Passive Smoke Exposure: Past Smokeless Tobacco: Never Alcohol Use Standard Drinks/Week Comments No 0 (1 standard drink = 0.6 oz pur e alcohol) PHQ-2 Answer Date Recorded Total Score 2 02/12/2025 Childcare Answer Date Recorded Childcare Unknown 04/26/2019 Employment Answer Date Recorded Employment Unknown 04/26/2019 Hunger Screening Answer Date Recorded Within the past 12 months we worried whether our food would run out before we got money to buy more. Never True 06/13/2025 Within the past 12 months th e food we bought just didn't last and we didn't have money to get more. Never True 06/13/2025 Purpose - Life Answer Date Recorded Purpose and direction in life Unknown Comments No Sex and Gender Information Value Date Recorded Sex Assigned at Female 05/22/2021 10:31 PM EDT Legal Sex Female 11:21 AM EDT Gender Identity Female 05/22/2021 10:31 PM EDT Sexual Orientation Straight 05/22/2021 10 :31 PM EDT documented as of this encounter Progress Notes * Jovany Johnson MD - 07/16/2025 8:01 PM EDT Normal calcium levels documented in this encounter Plan of Treatment Upcoming Encounters Date Type Department Care Team (Late st Contact Info) Description 08/16/2025 11:30 AM EDT Office Visit [facility], A Department of [facility] [address] [address] [facility] [address] [address] 08/17/2025 1:00 PM EDT Infusion [facility] - Medical Oncology [address] [place] [address] 02/26/2026 1:00 PM EDT Office Visit [facility] [address] [place] [address] [place] [address] Krishna Kramer MD [address] [place] [address] documented as of this encounter Goals Goal Patient Goal Type Associated Problems Recent Progress Patient-Stated? Author safe discharge to home General Yes Ginna Jean Baptiste RN Note: Evaluation of progress towards goal: safe transition from hospital to home with support of her friends/neighbors documented as of this encounter Visit Diagnoses Not on filedocumented in this encounter Additional Health Concerns Assessment Noted Time PHQ-9 Depression Total Score: 2 02/13/20 8:08 AM EDT documented as of this encounter Care Teams Color Technician Relationship Specialty Start Date End Date Bia Cao MD PCP - General Family Medicine 02/05/23 documented as of this encounter
--- OUTSIDE RECORDS SUMMARY | 2025-08-06 08:58 | XMS_ITS | Encounter Summary ---
Author Organization [facility] tem Address [id number] [address] [place] [address] Care Team Providers Care Mechanical Cad Drafter Name Role Phone Bia Cao MD Primary Care Provider [phone] Reason for Visit * Reason Onset Date Comments DRUG INTERACTION 02/12/2025 Encounter Details Date Type Department Care Team (Late st Contact Info) Description 02/12/2025 Telephone [facility] Neurology, A Department of [facility] [address] [facility] [address] [place] [address] Marcia Granados DRUG INTERACTION Social History Tobacco Use Types Packs/Day Years [...] got money to buy more. Never True 02/12/2025 Within the past 12 months th e food we bought just didn't last and we didn't have money to get more. Never True 02/12/2025 Purpose - Life Answer Date Recorded Purpose and direction in life Unknown Comments No Sex and Gender Information Value Date Recorded Sex Assigned at Female 05/22/2021 10:31 PM EDT Legal Sex Female 11:21 AM EDT Gender Identity Female 05/22/2021 10:31 PM EDT Sexual Orientation Straight 05/22/2021 10 :31 PM EDT documented as of this encounter Miscellaneous Notes * Telephone Encounter - Marcia Granados - 02/12/2025 9:50 AM EDT POSSIBLE DRUG INTERACTION [facility] called and stated the is an interaction amitriptyline (ELAVIL). Pharmacist asked for a call back at [phone] to discuss * Telephone Encounter - CHACE Rayo - 02/12/2025 9:50 AM EDT I am well aware that there is a geriatric warning for amitriptyline. She has been on the amitriptyline for years. She tolerates it well. She did poorly when she tried to come off of it. * Telephone Encounter - Nicci Oden RN - 02/12/2025 9:50 AM EDT I called [facility] and spoke with pharmacist. Patient filled an RX for Mirtazapine on 12/27/24,a 90 day supply prescribed by Olya Hardy with [facility]. It is not on her med list inEpic. Pharmacist is asking if you were aware of the Mirtazapine and will you be monitoring patient for this ? * Telephone Encounter - CHACE Rayo - 02/12/2025 9:50 AM EDT I was not aware and am not monitoring. That would be Olya Hardy. I am not sure why they filled the mirtazapine without questioning the interaction with the amitriptyline. * Telephone Encounter - Nicci Oden RN - 02/12/2025 9:50 AM EDT I called [facility] pharmacist back and relayed [facility] response. She said she is not able to answer whether Olya Hardy CNP was notified that patient was already on amitriptyline when the Mirtazapine wasfilled. She will call Olya Hardy CNP and let her know that the patient is on amitriptyline and has been for years, and did not do well when it was stopped. She will check to see if PCP office wants to monitor or stop the mirtazapine. documented in this encounter Plan of Treatment Upcoming Encounters Date Type Department Care Team (Late st Contact Info) Description 08/16/2025 11:30 AM EDT [facility] [address] [phone] Jessenia Dorsey APRN-MAHENDRA [address] [phone] 08/17/2025 1:00 PM EDT Infusion Meggan Hunter [facility] - Medical Oncology [address] [place] [phone] 02/26/2026 1:00 PM EDT Office Visit [facility] [address] [place] [address] [address] [facility] [place] [address] Krishna Kramer MD [address] [place] [address] documented as of this encounter Goals Goal [...] Time PHQ-9 Depression Total Score: 2 02/13/20 25 8:08 AM EDT documented as of this encounter Care Teams Mechanical Cad Drafter Relationship Specialty Start Date End Date Bia Cao MD PCP - General Family Medicine 02/05/23 documented as of this encounter
--- OUTSIDE RECORDS SUMMARY | 2025-08-06 08:58 | XMS_ITS | Encounter Summary ---
Author Organization [facility] tem Address [id number] [address] [place] [address] Care Team Providers Care Outside Sales Professional Name Role Phone Bia Cao MD Primary Care Provider [phone] Encounter Details Date Type Department Care Team (Late st Contact Info) Description 06/13/2025 Results Follow-Up [facility] Adult Endocrinology, A Department of [facility] [address] [facility] [address] [place] [address] Jovany Johnson MD [address] [facility], [address] [place] [address] Calcium Social History Tobacco Use Types Packs/Day [...] PM EDT documented as of this encounter Plan of Treatment Upcoming Encounters Date Type Department Care Team (Late st Contact Info) Description 08/16/2025 11:30 AM EDT Office Visit [facility] Neurology, A Department of [facility] [address] [facility] [address] [place] [address] Jessenia Dorsey, AUTO MECHANIC SUPERVISOR-DIRECTOR OF GROUP SALES [address] [facility] [address] [place] [address] 08/17/2025 1:00 PM EDT Infusion Meggan Hunter [facility] - Medical Oncology [address] [place] [address] 02/26/2026 1:00 PM EDT Office Visit [facility] [address] [place] [address] [place] [phone] Krishna Kramer MD [address] [place] [address] documented as of this encounter Goals Goal Patient Goal Type Associated Problems Recent Progress Patient-Stated? Author safe discharge to home General Yes Ginna Jean Baptiste, RN Note: Evaluation of progress towards goal: safe transition from hospital to home with support of her friends/neighbors documented as of this encounter Visit Diagnoses Not on filedocumented in this encounter Additional Health Concerns Assessment Noted Time PHQ-9 Depression Total Score: 2 02/13/20 25 8:08 AM EDT documented as of this encounter Care Teams Outside Sales Professional Relationship Specialty Start Date End Date Bia Cao MD PCP - General Family Medicine 02/05/23 documented as of this encounter
--- OUTSIDE RECORDS SUMMARY | 2025-08-06 08:58 | XMS_ITS | Encounter Summary ---
Author Organization [facility] [employer] [facility] tem Address [facility]-[id number] [address] [place] [address] Care Team Providers Care Mechanical Developer Prover Name Role Phone Bia Cao MD Primary Care Provider Encounter Details Date Type Department Care Team (Late st Contact Info) Description 02/17/2022 Orders Only [facility] [address] [facility] [address] [place] [phone] Ryan Dallas MD [address] [facility] [place] [address] Social History Tobacco Use Types Packs/Day Years Used Date Smoking Tobacco: Never Smokeless Tobacco: Never Alcohol Use Standard Drinks/Week Comments No 0 (1 standard drink = 0.6 oz pur e alcohol) PHQ-2 Answer Date Recorded Total Score 0 02/18/2022 Childcare Answer Date Recorded Childcare Unknown 04/26/2019 Employment Answer Date Recorded Employment Unknown 04/26/2019 Purpose - Life Answer Date Recorded Purpose and direction in life Unknown Comments No Sex and Gender Information Value Date Recorded Sex Assigned at Female 05/22/2021 10:31 PM EDT Legal Sex Female 11:21 AM EDT Gender Identity Female 05/22/2021 10:31 PM EDT Sexual Orientation Straight 05/22/2021 10 :31 PM EDT COVID-19 Exposure Response Date Recorded In the last 10 days, have yo u been in contact with someone who was confirmed or suspected to have Coronavirus/COVID-19? No / Unsure 02/20/2022 9:20 AM EDT documented as of this encounter Plan of Treatment Upcoming Encounters Date Type Department Care Team (Late st Contact Info) Description 08/16/2025 11:30 AM EDT Office Visit [facility], A Department of [facility] [address] [address] Jessenia Dorsey, DRAWER IN PLAIN LOOM-COLLEGE SCOUTING COORDINATOR [address] [address] 08/17/2025 1:00 PM EDT Infusion Meggan Hunter [facility] - Medical Oncology [address] [place] [phone] 02/26/2026 1:00 PM EDT Office Visit [facility] [address] [place] [address] [place] [address] Krishna Kramer MD [address] [place] [address] documented as of this encounter Procedures Procedure Name Priority Date/Time Associated Diagnosis Comments BLOOD PRESSURE CHECK Routine 02/17/2022 documented in this encounter Results * BLOOD PRESSURE CHECK (02/17/2022) us Ryan [place] MD [place] [employer] Fi nal Result MANUALLY TRANSCRIBED RESULTS documented in this encounter Visit Diagnoses Not on filedocumented in this encounter Additional Health Concerns Infection Onset Date Last Indicated Resolved Time COVID-19 Rule-Out 03/02/2023 03/02/2023 03/02/2023 3:25 AM EDT Assessment Noted Time PHQ-9 Depression Total Score: 0 10/06/20 21 11:30 AM EST documented as of this encounter Care Teams Mechanical Developer Prover Relationship Specialty Start Date End Date Bia Cao MD PCP - General Family Medicine 02/05/23 documented as of this encounter
--- OUTSIDE RECORDS SUMMARY | 2025-08-06 08:59 | XMS_ITS | Encounter Summary ---
Author Organization [facility] Address [address] [place] [address] Care Team Providers Care Monorail Helper Name Role Phone Bia Cao MD Primary Care Provider [phone] Bia Cao MD Unavailable Encounter Details Date Type Department Care Team (Late Contact Info) Description 01/31/2024 Abstract [facility] Medicine [address] [facility] [place] [address] Bia Cao MD [address] [facility] [place] [address] Social History Tobacco Use Types [...] Department Care Team (Late Contact Info) Description 11/07/2025 1:40 PM EST Office Visit [facility] [address] [facility] [place] [address] Bia Cao MD [address] [place] [address] documented as of this encounter Visit Diagnoses Not on filedocumented in this encounter Additional Health Concerns Assessment Noted Time PHQ-9 Depression Total Score: 7 12/06/19 24 2:00 PM EST documented as of this encounter Care Teams Monorail Helper Relationship Specialty Start Date End Date Bia Cao MD [address] [place], [place] [phone] PCP - General Family Medicine 04/29/23 Bia Cao MD [address] [place] [address] PCP - Aetyu 11/22/21 documented as of this encounter
--- OUTSIDE RECORDS SUMMARY | 2025-08-06 08:59 | XMS_ITS | Encounter Summary ---
Author Organization [facility] tem Address [facility]-[id number] [address] [place] [address] Care Team Providers Care Mussel Farmer Name Role Phone Bia Cao MD Primary Care Provider [phone] Encounter Details Date Type Department Care Team (Late Contact Info) Description 02/08/2023 Orders Only [facility] Adult Endocrinology [address] [facility] [address] [place] [phone] External, Scanning Provider Social History Tobacco Use Types Packs/Day Years [...] Exposure Response Date Recorded In the last month, have you been in contact with someone who was confirmed or suspected to have Coronavirus / COVID-19? No / Unsure 02/10/2023 10:28 AM EDT documented as of this encounter Plan of Treatment Upcoming Encounters Date Type Department Care Team ([facility] Contact Info) Description 08/16/2025 11:30 AM EDT Office Visit [facility], A Department of [facility] [address] [address] Jessenia Dorsey APRN-HEATING UNIT INSTALLER [address] [phone] 08/17/2025 1:00 PM EDT Infusion [facility] - Medical [facility] [address] [place] [address] 02/26/2026 1:00 PM EDT Office Visit [facility] [address] [place] [address] [place] [address] Krishna Kramer MD [address] [place] [address] documented as of this encounter Visit Diagnoses Not on filedocumented in this encounter Additional Health Concerns Infection Onset Date Last Indicated Resolved Time COVID-19 Rule-Out 03/02/2023 03/02/2023 03/02/2023 3:25 AM EDT Assessment Noted Time PHQ-9 Depression Total Score: 0 02/19/20 11:45 AM EDT documented as of this encounter Care Teams Mussel Farmer Relationship Specialty Start Date End Date Bia Cao MD PCP - General Family Medicine 02/05/23 documented as of this encounter
--- OUTSIDE RECORDS SUMMARY | 2025-08-06 08:59 | XMS_ITS | Encounter Summary ---
Author Organization [facility] Address [address] [facility] [place] [address] Care Team Providers Care Pickling Operator Name Role Phone Bia Cao MD Primary Care Provider [phone] Bia Cao MD Unavailable Encounter Details Date Type Department Care Team (Late st Contact Info) Description 08/26/2024 Abstract [facility] Family Medicine [address] [place] [address] Bia Cao MD [address] [facility] [place] [address] Social History Tobacco Use Types [...] often do you attend chur ch or restoration services? More than 4 times per year 04/02/2024 Do you belong to any clubs o r organizations such as caodaism groups, unions, fraternal or athletic groups, or [...] Recorded Patient Health Questionnaire-2 Score 0 08/14/2024 [facility] Occupat ional Health - Occupational Stress [...] Description 11/07/2025 1:40 PM EST Office Visit [facility] [address] [place] [address] Bia Cao MD [address] [place], [place] [phone] documented as of this encounter Goals Goal [...] documented as of this encounter Care Teams Pickling Operator Relationship Specialty Start Date End Date Bia Cao MD [address] [place] [address] PCP - General Family Medicine 04/29/23 Bia Cao MD [address] [place] [address] PCP - [employer] 11/22/21 documented as of this encounter
--- OUTSIDE RECORDS SUMMARY | 2025-08-06 08:59 | XMS_ITS | Encounter Summary ---
[facility] Address [facility][id number] [address] [place] [address] Care Team Providers Care Office Clinician Name Role Phone Bia Cao MD Primary Care Provider Encounter Details Date Type Department Care Team (Late st Contact Info) Description 06/01/2023 Orders Only [facility] [address] [facility] [address] [place] [address] Ryan Dallas MD [address] [facility] [place] [address] Essential hypertension Social History Tobacco Use Types Packs/Day Years Used Date Smoking Tobacco: Never Smokeless Tobacco: Never Alcohol Use Standard Drinks/Week Comments No 0 (1 standard drink = 0.6 oz pur e alcohol) PHQ-2 Answer Date Recorded Total Score 0 04/23/2023 Childcare Answer Date Recorded Childcare Unknown 04/26/2019 [...] Department Care Team (Late Contact Info) Description 08/16/2025 11:30 AM EDT Office Visit [facility], A Department of [facility] [address] [facility] [address] [place] [address] Jessenia Dorsey APRN-INDOOR LANDSCAPER/GARDENER [address] [facility] [address] [place] [address] 08/17/2025 1:00 PM EDT Infusion Meggan Hunter [facility] - Medical Oncology [address] [place] [address] 02/26/2026 1:00 PM EDT Office Visit [facility] [address] [place] [address] [address] [facility] [place] [address] Krishna Kramer MD [address] [place] [address] documented as of this encounter Goals Goal Patient Goal Type Associated Problems Recent Progress Patient-Stated? Author safe discharge to home General Yes Ginna Jean Baptiste, RN Note: Evaluation of progress towards goal: safe transition from hospital to home with support of her friends/neighbors documented as of this encounter Visit Diagnoses Diagnosis Essential hypertension Unspecified essential hypertension documented in this encounter Additional Health Concerns Assessment Noted Time PHQ-9 Depression Total Score: 0 04/23/20 11:11 AM EDT documented as of this encounter Care Teams Office Clinician Relationship Specialty Start Date End Date Bia Cao MD PCP - General Family Medicine 02/05/23 documented as of this encounter
--- OUTSIDE RECORDS SUMMARY | 2025-08-06 08:59 | XMS_ITS | Encounter Summary ---
Author Organization [facility] tem Address [id number] [address] [place] [address] Care Team Providers Care Construction Mgr Name Role Phone Bia Cao MD Primary Care Provider [phone] Encounter Details Date Type Department Care Team (Late st Contact Info) Description 11/17/2022 Telephone [facility] [address] [place] [address] Kasey Swenson PA-C [address], [address] [place], [place] [phone] Social History Tobacco Use Types Packs/Day Years [...] have Coronavirus / COVID-19? No / Unsure 11/11/2022 10:20 AM EST documented as of this encounter Miscellaneous Notes * Telephone Encounter - Rosario Landrum - 11/17/2022 1:54 PM EST Rt L 5,1 NRoot Injection This notice is not a denial of coverage notice. This notice is an opportunity to provide additionalinformation or to engage in a peer-to- peer discussion, prio to issuing a denial decision. We cannot approve this request because the following are needed: you will participate in an active exercise program. How would you like to proceed? * Telephone Encounter - Kasey Swenson PA-C - 11/17/2022 1:54 PM EST Call patient and see if she has and/or is working on a HEP? If she has, we can add to the documentation. * Telephone Encounter - Rosario Landrum - 11/17/2022 1:54 PM EST Called patient, she stated that she has been doing HEP for 10yrs. Recently completed pt Oct 2021/Nov 2021 and have been doing HEP every since then and still doing. * Telephone Encounter - Kasey Swenson PA-C - 11/17/2022 1:54 PM EST Was this is in the note? If not can we send in an addendum and re-submit? * Telephone Encounter - Rosario Landrum - 11/17/2022 1:54 PM EST Jessica fixed it that day before she left I sent over a new note with that in there. Called and injection is approved. * Telephone Encounter - Kasey Swenson PA-C - 11/17/2022 1:54 PM EST Noted have jorge schedule her documented in this encounter Plan of Treatment Upcoming Encounters Date Type Department Care Team (Late st Contact Info) Description 08/16/2025 11:30 AM EDT Office Visit [facility], A Department of [facility] [address] [address] Jessenia Dorsey, [facility] [address] [phone] 08/17/2025 1:00 PM EDT Infusion Meggan Hunter [facility] - Medical Oncology [address] [place] [address] 02/26/2026 1:00 PM EDT Office Visit [facility] [address] [place] [address] [address] [place] [address] Krishna Kramer MD [address] [place] [address] documented as of this encounter Visit Diagnoses Not on filedocumented in this encounter Additional Health Concerns Infection Onset Date Last Indicated Resolved Time COVID-19 Rule-Out 03/02/2023 03/02/2023 03/02/2023 3:25 AM EDT Assessment Noted Time PHQ-9 Depression Total Score: 0 02/19/20 11:45 AM EDT documented as of this encounter Care Teams Construction Mgr Relationship Specialty Start Date End Date Bia Cao MD PCP - General Family Medicine 02/05/23 documented as of this encounter
--- OUTSIDE RECORDS SUMMARY | 2025-08-06 08:59 | XMS_ITS | Encounter Summary ---
Author Organization [facility] Address [address] [facility] [place] [address] Care Team Providers Care Circuit Breaker Assembler Name Role Phone True Cao MD Primary Care Provider [phone] True Cao MD Unavailable Encounter Details Date [...] 1:40 PM EST Office Visit [facility] [address] [facility] [place] [place] [place] [phone] True Cao MD [address] [facility] [place] [place] [address] documented as of this encounter Procedures Procedure Name Priority Date/Time Associated Diagnosis Comments XR CERVICAL SPINE W FLEX/EXT 01/04/2024 3:55 PM EST documented in this encounter Results * XR CERVICAL SPINE W FLEX/EXT (01/04/2024 3:55 PM EST) Anatomical Region Laterality Modality Other 01/04/2024 3:55 PM EST Narrative 01/04/2024 3:57 PM EST [address] [address] XRay Report Signed Patient: BOOKER RUTH MR#: [id number] : 1945 Acct:[id number] Age/Sex: 78 / F ADM Date: 01/04/24 Loc: RAD Attending Dr: Ilia Quintero NP Ordering Physician: Ilia Quintero NP Date of Service: 01/04/24 Procedure(s): XR cervical spine w flex/ext Accession Number(s): [id number] cc: TRUE CAO ; Ilai Quintero NP [place] [address] Patient Name: BOOKER RUTH MRN: [id number] date: 1945 Sex: F Assigned Patient Location: [facility] Current Patient Location: [facility] Accession/Order Number: [id number] Exam Date: 01/04/2024 14:20 Report Date: 01/04/2024 [...] Signed By: 01/04/24 1557 DD/ 54 TD/TT: Planishing Press Operator: Procedure Note Radiology, Radiologist, - 01/04/2024 [facility] [place] [id number] XRay Report Signed Patient: APOLLO RUTH#: [id number] : 5Acct:[id number] Age/Sex: 78 / FADM Date: 01/04/24 Loc: RAD Attending Dr: Ilia Quintero NP Ordering Physician: Ilia Quintero NP Date of Service: 01/04/24 Procedure(s): XR cervical spine w flex/ext Accession Number(s): [id number] cc: TRUE CAO ; Ilia Quintero NP [facility] [place] [id number] Patient Name: BOOKER RUTH MRN: [id number] date: 1945 Sex: F Assigned Patient Location: [facility] Current Patient Location: [facility] Accession/Order Number: [id number] Exam Date: 01/04/2024 14:20 Report Date: 01/04/2024 [...] M.D. Signed By:01/04/24 1557 DD/ 1555 TD/TT: Planishing Press Operator: us Generic External Data Provider [facility] Final Result documented in this encounter Visit Diagnoses Not on filedocumented in this encounter Additional Health Concerns Assessment Noted Time PHQ-9 Depression Total Score: 7 12/06/19 24 2:00 PM EST documented as of this encounter Care Teams Circuit Breaker Assembler Relationship Specialty Start Date End Date True Cao MD [address] [place], [place] [phone] PCP - General Family Medicine 04/29/23 True Cao MD [address] [place], [place] [address] PCP - [employer] 11/22/21 documented as of this encounter
--- OUTSIDE RECORDS SUMMARY | 2025-08-06 08:59 | XMS_ITS | Encounter Summary ---
Author Organization [facility] Address [address] [place] [address] Care Team Providers Care Relay Motorman Name Role Phone Bia Cao MD Primary Care Provider [phone] Bia Cao MD Unavailable Encounter Details Date Type Department Care Team (Late Contact Info) Description 09/15/2023 Abstract [facility] Medicine [address] [facility] [place] [address] Bia Cao MD [address] [facility] [place] [address] Social History Tobacco Use Types [...] 1:40 PM EST Office Visit [facility] [address] [facility] [place] [address] Bia Cao MD [address] [facility] [place] [address] documented as of this encounter Visit Diagnoses Not on filedocumented in this encounter Additional Health Concerns Assessment Noted Time PHQ-9 Depression Total Score: 6 06/04/20 23 3:00 PM EDT documented as of this encounter Care Teams Relay Motorman Relationship Specialty Start Date End Date Bia Cao MD [address] [place] [address] PCP - General Family Medicine 04/29/23 Bia Cao MD [address] [place] [address] PCP - Aetyu 11/22/21 documented as of this encounter
--- OUTSIDE RECORDS SUMMARY | 2025-08-06 08:59 | XMS_ITS | Encounter Summary ---
Author Organization [facility] Address [address] [facility] [place] [address] Care Team Providers Care Hide Puller Name Role Phone Bia Cao MD Primary Care Provider [phone] Bia Cao MD Unavailable Reason for Visit * Reason Comments Med Refill Encounter Details Date Type Department Care Team (Late st Contact Info) Description 04/12/2023 Refill [facility] Medicine [address] [place] [phone] Bia Cao MD [address] [facility] [place], [place] [address] Moderate persistent asthma, unspecified whether complicated (HCC) (Primary Dx) Social History Tobacco Use Types [...] 1:40 PM EST Office Visit [facility] Medicine [address] [place] [address] Bia Cao MD [address] [facility] [place], [place] [address] documented as of this encounter Visit Diagnoses Diagnosis Moderate persistent asthma, unspecified whether complicated (HCC)- Primary documented in this encounter Care Teams Hide Puller Relationship Specialty Start Date End Date Bia Cao MD [address] [facility] [place], [place] [phone] PCP - General Family Medicine 04/29/23 Bia Cao MD [address] [facility] [place], [place] [phone] PCP - [employer] 11/22/21 documented as of this encounter
--- OUTSIDE RECORDS SUMMARY | 2025-08-06 08:59 | XMS_ITS | Encounter Summary ---
Author Organization [employer] Address [facility]-[id number] [address] [place] [address] Care Team Providers Care Bakery Technician Name Role Phone Bia Cao MD Primary Care Provider [phone] Reason for Visit * Reason Comments Med Refill Encounter Details Date Type Department Care Team (Late st Contact Info) Description 03/15/2022 Refill [facility] [address] [place] [phone] Corey Chacon MD [address] [place] [address] [address] [place], [place] [phone] Low back pain, unspecified back pain laterality, unspecified chronicity, unspecified whether sciatica present Social History Tobacco Use Types Packs/Day Years [...] suspected to have Coronavirus/COVID-19? No / Unsure 03/10/2022 9:09 AM EDT documented as of this encounter Plan of Treatment Upcoming Encounters Date Type Department Care Team (Late st Contact Info) Description 08/16/2025 11:30 AM EDT Office Visit [facility], A Department of [facility] [address] [facility] [address] [place] [address] Jessenia Dorsey, ACCOUNT ASSISTANT-LABORER STEEL HANDLING [address] [facility] [address] [place] [address] 08/17/2025 1:00 PM EDT Infusion [facility] - Medical Oncology [address] [place] [address] 02/26/2026 1:00 PM EDT Office Visit [facility] [address] [place] [address] [place] [address] Krishna Kramer MD [facility] [place] [address] documented as of this encounter Visit Diagnoses Diagnosis Low back pain, unspecified back pain laterality, unspecified chronicity, unspecified whether sciatica present documented in this encounter Additional Health Concerns Infection Onset Date Last Indicated Resolved Time COVID-19 Rule-Out 03/02/2023 03/02/2023 03/02/2023 3:25 AM EDT Assessment Noted Time PHQ-9 Depression Total Score: 0 02/19/20 22 11:45 AM EDT documented as of this encounter Care Teams Bakery Technician Relationship Specialty Start Date End Date Bia Cao MD PCP - General Family Medicine 02/05/23 documented as of this encounter
--- OUTSIDE RECORDS SUMMARY | 2025-08-06 08:59 | XMS_ITS | Encounter Summary ---
Author Organization [facility] Address [address] [place] [address] Care Team Providers Care Security Alarm Technician Name Role Phone Bia Cao MD Primary Care Provider [phone] Bia Cao MD Unavailable Encounter Details Date Type Department Care Team (Late Contact Info) Description 09/27/2023 Orders Only [facility] [address] [facility] [place] [address] Hannah Olson NP Acute cystitis [...] Description 11/07/2025 1:40 PM EST [facility] [address] [place] [address] Bia Cao MD [address] [facility] [place] [address] documented as of this encounter Visit Diagnoses Diagnosis Acute cystitis with hematuria- Primary documented in this encounter Additional Health Concerns Assessment Noted Time PHQ-9 Depression Total Score: 6 06/04/20 23 3:00 PM EDT documented as of this encounter Care Teams Security Alarm Technician Relationship Specialty Start Date End Date Bia Cao MD [address] [place] [address] PCP - General Family Medicine 04/29/23 Bia Cao MD [address] [place] [address] PCP - [employer] 11/22/21 documented as of this encounter
--- OUTSIDE RECORDS SUMMARY | 2025-08-06 08:59 | XMS_ITS | Encounter Summary ---
Author Organization [facility] Address [address] [place] [address] Care Team Providers Care Big Data Platform Architect Name Role Phone Bia Cao MD Primary Care Provider [phone] Bia Cao MD Unavailable Reason for Visit * Reason Comments Med Refill Encounter Details Date Type Department Care Team (Late st Contact Info) Description 07/06/2023 Refill [facility] [address] [facility] [address] [facility] [place] [address] Bia Cao MD [address] [place] [address] Spinal stenosis of lumbar region [...] Description 11/07/2025 1:40 PM EST Office Visit [facility] [address] [facility] [place] [address] Bia Cao MD [address] [facility] [place] [address] documented as of this encounter Visit Diagnoses Diagnosis Spinal stenosis of lumbar region without neurogenic claudication- Primary documented in this encounter Additional Health Concerns Assessment Noted Time PHQ-9 Depression Total Score: 6 06/04/20 23 3:00 PM EDT documented as of this encounter Care Teams Big Data Platform Architect Relationship Specialty Start Date End Date Bia Cao MD [address] [facility] [address] [place], [place] [phone] PCP - General Family Medicine 04/29/23 Bia Cao MD [address] [facility] [place] [address] PCP - [employer] 11/22/21 documented as of this encounter
--- OUTSIDE RECORDS SUMMARY | 2025-08-06 08:59 | XMS_ITS | Encounter Summary ---
Author Organization [facility] Address [address] [place] [address] Care Team Providers Care Interior Design Coordinator Name Role Phone Bia Cao MD Primary Care Provider Bia Cao MD Unavailable Encounter Details Date Type Department Care Team (Late Contact Info) Description 09/20/2023 Abstract [facility] Medicine [address] [facility] [place] [address] Bia Cao MD [address] [facility] [place] [address] Social History Tobacco Use Types [...] 1:40 PM EST Office Visit [facility] [address] [facility] [place] [address] Bia Cao MD [address] [place] [address] documented as of this encounter Visit Diagnoses Not on filedocumented in this encounter Additional Health Concerns Assessment Noted Time PHQ-9 Depression Total Score: 6 06/04/20 23 3:00 PM EDT documented as of this encounter Care Teams Interior Design Coordinator Relationship Specialty Start Date End Date Bia Cao MD [address] [place] [address] PCP - General Family Medicine 04/29/23 Bia Cao MD [address] [place] [address] PCP - [employer] 11/22/21 documented as of this encounter
--- OUTSIDE RECORDS SUMMARY | 2025-08-06 08:59 | XMS_ITS | Encounter Summary ---
Author Organization [facility] Address [id number] [address] [place] [address] Care Team Providers Care Utility Repairer Name Role Phone Bia Cao MD Primary Care Provider [phone] Encounter Details Date Type Department Care Team (Late Contact Info) Description 06/23/2021 [facility]phone [facility] [address] [place] [address] Kalyani Dumont Social History Tobacco Use Types Packs/Day Years Used Date Smoking Tobacco: Never Smokeless Tobacco: Never Alcohol Use Standard Drinks/Week Comments No 0 (1 standard drink = 0.6 oz pur e alcohol) PHQ-2 Answer Date Recorded Total Score 0 03/31/2021 Childcare Answer Date Recorded Childcare Unknown 04/26/2019 [...] have Coronavirus / COVID-19? No / Unsure 06/24/2021 8:33 AM EDT documented as of this encounter Plan of Treatment Upcoming Encounters Date Type Department Care Team ([facility] Contact Info) Description 08/16/2025 11:30 AM EDT Office Visit [facility] [address] [phone] Jessenia Dorsey APRN-RENEWALS MANAGER [address] [phone] 08/17/2025 1:00 PM EDT Infusion [facility] - Medical On[facility] [address] [place] [address] 02/26/2026 1:00 PM EDT Office Visit [facility] [address] [place] [address] [place] [address] Krishna Kramer MD [address] [place] [address] documented as of this encounter Visit Diagnoses Not on filedocumented in this encounter Additional Health Concerns Infection Onset Date Last Indicated Resolved Time COVID-19 Rule-Out 11/01/2021 11/01/2021 11/02/2021 12:13 PM EST COVID-19 Rule-Out 03/02/2023 03/02/2023 03/02/2023 3:25 AM EDT Assessment Noted Time PHQ-9 Depression Total Score: 0 03/31/20 21 2:49 PM EDT documented as of this encounter Care Teams Utility Repairer Relationship Specialty Start Date End Date Bia Cao MD PCP - General Family Medicine 02/05/23 documented as of this encounter
--- OUTSIDE RECORDS SUMMARY | 2025-08-06 08:59 | XMS_ITS | Encounter Summary ---
Author Organization [facility] Address [address] [place] [address] Care Team Providers Care Filenet Admin Name Role Phone Bia Cao MD Primary Care Provider [phone] Bia Cao MD Unavailable Encounter Details Date Type Department Care Team (Late st Contact Info) Description 10/07/2024 Abstract [facility] [address] [place] [address] Bia Cao MD [address] [facility] [address] [place] [address] Social History Tobacco Use Types [...] often do you attend chur ch or orthodoxy services? More than 4 times per year 04/02/2024 Do you belong to any clubs o r organizations such as catholic groups, unions, fraternal [...] Patient Health Questionnaire-2 Score 0 08/14/2024 [facility] - Occupational [...] place to sleep or slept in a residential (including now)? No 04/02/2024 Comments Unknown Sex and Gender Information Value Date Recorded Sex Assigned at Not on file Legal Sex Female 7:26 PM EDT Gender Identity Not on file Sexual Orientation Not on file documented as of this encounter Plan of Treatment Upcoming Encounters Date Type Department Care Team (Late st Contact Info) Description 11/07/2025 1:40 PM EST Office Visit [facility] [address] [place] [address] Bia Cao MD [address] [place], [place] [phone] documented as of this encounter Goals Goal [...] documented as of this encounter Care Teams Filenet Admin Relationship Specialty Start Date End Date Bia Cao MD [address] [place] [address] PCP - General Family Medicine 04/29/23 Bia Cao MD [address] [place] [address] PCP - [employer] 11/22/21 documented as of this encounter
--- OUTSIDE RECORDS SUMMARY | 2025-08-06 08:59 | XMS_ITS | Encounter Summary ---
Author Organization [facility] Address [id number] [address] [place] [address] Care Team Providers Care Manager Clinical Name Role Phone Bia Cao MD Primary Care Provider [phone] Encounter Details Date Type Department Care Team (Late Contact Info) Description 09/29/2021 Orders Only [facility] [address] [place] [phone] Ref Prov, [place] [address] Social History Tobacco Use Types Packs/Day Years Used Date Smoking Tobacco: Never Smokeless Tobacco: Never Alcohol Use Standard Drinks/Week Comments No 0 (1 standard drink = 0.6 oz pur e alcohol) PHQ-2 Answer Date Recorded Total Score 0 07/01/2021 Childcare Answer Date Recorded Childcare Unknown 04/26/2019 [...] have Coronavirus / COVID-19? No / Unsure 09/18/2021 10:22 AM EDT documented as of this encounter Plan of Treatment Upcoming Encounters Date Type Department Care Team (Late Contact Info) Description 08/16/2025 11:30 AM EDT Office Visit [facility] Department of [facility] [address] [address] Jessenia Dorsey, MASOOD-ACCOUNTING MACHINE SERVICER [address] [phone] 08/17/2025 1:00 PM EDT Infusion [facility] - Medical Oncology [address] [place] [phone] 02/26/2026 1:00 PM EDT Office Visit [facility] [address] [place] [address] [address] [facility] [place] [address] Krishna Kramer MD [address] [place] [address] documented as of this encounter Procedures Procedure Name Priority Date/Time Associated Diagnosis Comments EMG WITH NCV Routine 09/29/2021 11:13 AM EST documented in this encounter Visit Diagnoses Not on filedocumented in this encounter Additional Health Concerns Infection Onset Date Last Indicated Resolved Time COVID-19 Rule-Out 11/01/2021 11/01/2021 11/02/2021 12:13 PM EST COVID-19 Rule-Out 03/02/2023 03/02/2023 03/02/2023 3:25 AM EDT Assessment Noted Time PHQ-9 Depression Total Score: 0 07/01/20 11:00 AM EDT documented as of this encounter Care Teams Manager Clinical Relationship Specialty Start Date End Date Bia Cao MD PCP - General Family Medicine 02/05/23 documented as of this encounter
--- OUTSIDE RECORDS SUMMARY | 2025-08-06 08:59 | XMS_ITS | Encounter Summary ---
Author Organization [facility] Address [id number] [address] [place] [address] Care Team Providers Care Tmr Teacher Name Role Phone Bia Cao MD Primary Care Provider [phone] Reason for Visit * Reason Comments Med Refill Encounter Details Date Type Department Care Team (Late st Contact Info) Description 04/15/2022 Refill [facility] [address] [place] [phone] Corey Chacon MD [address] [place] [address] [address] [place], [place] [id number] Low back pain, unspecified back pain laterality, [...] suspected to have Coronavirus/COVID-19? No / Unsure 04/17/2022 8:27 AM EDT documented as of this encounter Plan of Treatment Upcoming Encounters Date Type Department Care Team (Late st Contact Info) Description 08/16/2025 11:30 AM EDT Office Visit [facility] Department of [facility] [address] [facility] [address] [place] [address] Jessenia Dorsey, PHOSPHORIC ACID SUPERVISOR-WIND UP WORKER [address] [facility] [address] [place] [phone] 08/17/2025 1:00 PM EDT Infusion [facility] - Medical Oncology [address] [place] [phone] 02/26/2026 1:00 PM EDT Office Visit [facility] [address] [place] [address] [place] [phone] Krishna Kramer MD [facility] [place] [address] documented as of this encounter Visit Diagnoses Diagnosis Low back pain, unspecified back pain laterality, unspecified chronicity, unspecified whether sciatica present documented in this encounter Additional Health Concerns Infection Onset Date Last Indicated Resolved Time COVID-19 Rule-Out 03/02/2023 03/02/2023 03/02/2023 3:25 AM EDT Assessment Noted Time PHQ-9 Depression Total Score: 0 02/19/20 22 11:45 AM EDT documented as of this encounter Care Teams Tmr Teacher Relationship Specialty Start Date End Date Bia Cao MD PCP - General Family Medicine 02/05/23 documented as of this encounter
--- OUTSIDE RECORDS SUMMARY | 2025-08-06 08:59 | XMS_ITS | Clinical Summary ---
Author Organization [facility] Address [address] [place] [address] Care Team Providers Care Director Of Enterprise Architecture Name Role Phone Bia Cao MD Primary Care Provider [phone] Bia Cao MD Unavailable Allergies Active Allergy [...] stomach Orally Mon thru Sat, skip Wednesday 023 Active Lactobacillus (Florajen Women) capsule as directed Orally Active buprenorphine (Butrans) 7.5 MCG/HR Place 1 patch on the skin 1 (one) time per week. Active fluticasone (Flonase) 50 MCG/ACT nasal sprayIndications: Allergic rhinitis due to pollen, unspecified seasonality Administer 1-2 sprays into each nostril in the morning. Shake gently. Before first use, prime pump. After use, clean tip and replace cap.. 16 g 2 023 Active methocarbamol (Robaxin) 500 MG tablet Take 1,000 mg by mouth at bedtime 024 Active hydrALAZINE (Apresoline) 50 MG tablet Take 50 mg by mouth Only if bp is above 170, an hour after taking 100mg hydralazine. Active amitriptyline (Elavil) 50 MG tabletIndications :Primary insomnia Take 1 tablet (50 mg) by mouth at bedtime 90 tablet 3 024 2024 Active fenofibrate (Triglide) 160 MG tabletIndications :Hyperlipidemia, unspecified hyperlipidemia type Take 1 tablet (160 mg) by mouth in the morning. 40 tablet 11 024 Active ferrous sulfate 325 (65 Fe) MG tabletIndications :Anemia, unspecified type Take 1 tablet (325 mg) by mouth in the morning and 1 tablet (325 mg) in the evening. Take with meals. 200 tablet 3 025 2025 Active famotidine (Pepcid) 20 MG tabletIndications :Gastroesophageal reflux disease without esophagitis Take 1 tablet (20 mg) by mouth at bedtime 90 tablet 3 025 2025 Active atorvastatin (Lipitor) 40 MG tabletIndications :Mixed hyperlipidemia Take 1 tablet (40 mg) by mouth Daily 90 tablet 3 Active escitalopram (Lexapro) 20 MG tabletIndications :Anxiety Take 1 tablet (20 mg) by mouth in the evening. Take with meals 100 tablet 3 025 2025 Active romosozumab (Evenity) 105 MG/1.17ML prefilled syringe Inject 210 mg under the skin every 30 (thirty) days Active oxybutynin XL (Ditropan-XL) 10 MG 24 hr tabletIndications :Stress incontinence of urine Take 1 tablet (10 mg) by mouth Daily 90 tablet 3 Active carvedilol (Coreg) 25 MG tabletIndications :Essential hypertension Take 1 tablet (25 mg) by mouth in the morning and 1 tablet (25 mg) before bedtime. 180 tablet 3 025 2025 Active hydrALAZINE (Apresoline) 100 MG tabletIndications :Essential hypertension Take 1 tablet (100 mg) by mouth in the morning. 90 tablet 3 025 2025 Active zafirlukast (Accolate) 20 MG tabletIndications :Moderate persistent asthma, unspecified whether complicated (HCC) Take 1 tablet (20 mg) by mouth in the morning and 1 tablet (20 mg) before bedtime. 180 tablet 3 Active Ubrelvy 100 MG tablet Take 1 tablet by mouth Daily as needed (migraine) Active CRANBERRY CONCENTRATE PO Take 1 tablet by mouth Daily Active lisinopril-hydroC HLOROthiazide 20-12.5 MG tabletIndications :Essential hypertension Take 1 tablet by mouth in the morning. 90 tablet 3 025 Active mirtazapine (Remeron) 15 MG tabletIndications :Primary insomnia,Major depressive disorder, single episode, in full remission TAKE 1 TABLET BY MOUTH AT BEDTIME 90 tablet Active albuterol HFA 90 mcg/act inhalerIndication s:Mild intermittent asthma without complication (HCC) Inhale 2 puffs every 4 (four) hours if needed for shortness of breath or wheezing 18 g 3 025 2024 Active omeprazole (PriLOSEC) [address] capsuleIndication s:Gastroesophagea l reflux disease without esophagitis Take 1 capsule by mouth in the morning 100 capsule 11 025 Active albuterol HFA 90 mcg/act inhalerIndication s:Mild intermittent asthma without complication (HCC) Inhale 2 puffs every 4 (four) hours. 18 g 11 023 2024 Discontinued(R eorder) omeprazole (PriLOSEC) [address] capsuleIndication s:Gastroesophagea l reflux disease without esophagitis Take 1 capsule (40 mg) by mouth in the morning. 100 capsule 11 025 2024 Discontinued Active Problems Problem Noted Date Diagnosed Date [...] osteoporosis wit hout current pathological fracture 06/04/2023 Assessment & Plan (07/10/2025 2:27 PM EDT): Orders: Vitamin D 25 hydroxy; Future Stage 3b chronic kidney disease (CKD) 06/04/2023 Assessment & Plan (07/10/2025 2:27 PM EDT): Orders: CBC and differential; Future Comprehensive metabolic panel; Future Bilateral nephrolithiasis 03/02/2023 Primary osteoarthritis of right knee 09/17/2021 Gastroesophageal reflux disease without esophagi tis 09/15/2021 1st degree AV block 06/10/2021 Mixed stress and urge urinary incontinence 10/29 Major depressive disorder, s vandana episode, in full remission 10/24/2019 Assessment & Plan (07/10/2025 2:27 PM EDT): Orders: CBC and differential; Future Acquired hypothyroidism 09/29/2019 Chronic idiopathic constipation 07/10/2019 Assessment & Plan (07/11/2025 9:31 AM EDT): Recommend metamucil Balance problem 06/12/2019 Bilateral occipital neuralgia 03/02/2019 Essential tremor 12/12/2018 History of depression 2018 Trochanteric bursitis of both hips 11/03/2017 Recurrent falls 11/01/2017 Other specified depressive episodes 02/12/2017 Herniation of lumbar intervertebral disc with ra diculopathy 01/07/2017 Degeneration of lumbosacral intervertebral disc 08/14/2016 Asthma 03/26/2016 Assessment & Plan (07/11/2025 9:31 AM EDT): stable History of lumbar fusion 12/11/2015 Hyperlipidemia 11/08/2015 Essential hypertension 03/13/2013 Overview (06/04/2023): Managed by dr cifuentes Spinal stenosis of lumbar region 08/14/2011 Overview (06/04/2023): Added automatically from request for surgery [id number] Added automatically from request for surgery [id number] Impingement syndrome of right shoulder 1 Resolved Problems Problem Noted Date Diagnosed Date Resolved Date Migraine without status migr ainosus, not intractable 06/04/2023 10/24/2023 Lumbago with sciatica, right side 06/04/2023 10/24/2023 Adjustment disorder with anxiety 05/04/2023 10/24/2023 Cervical spondylosis without myelopathy 04/01/2022 06/04/2023 Overview (06/04/2023): Added automatically from request for surgery [id number] Age related osteoporosis 12/19/201901/2023 Disc displacement, lumbar 05/05/2019 Overview (06/04/2023): Added automatically from request for surgery [id number] Herniation of nucleus pulpos us of lumbar intervertebral disc with sciatica 01/14/20172022 Encounters Date Type Department Care Team Description 07/25/2025 Refill [facility] [address] [facility] [place] [address] Bia Cao MD Gastroesophageal reflux disease without esophagitis 07/10/2025 1:00 PM EDT Office Visit [facility] [address] [facility] [place] [address] Bia Cao MD Stage 3b chronic kidney disease (CKD) ([facility]); Major depressive disorder, single episode, in full remission ; Age-related osteoporosis without current pathological fracture ; Moderate persistent asthma without complication ([facility]); Diastolic dysfunction with chronic heart failure ([facility]); Chronic idiopathic constipation; Mild intermittent asthma without complication (HCC); Interstitial pulmonary disease, unspecified (HCC) 07/10/2025 Bamboo flowsheet [facility] [address] [facility] [place] [address] Bia Cao MD 07/10/2025 Travel 07/05/2025 Abstract [address] [facility] [place] [address] Bia Cao MD 06/26/2025 3:15 PM EDT Clinical Support [facility] [address] [facility] [address] Dysuria 06/26/2025 Results Follow-Up [place] [address] [facility] [place] [address] Bia Cao MD POCT Urinalysis dipstick, Urine culture (clean catch) 06/26/2025 Travel 06/26/2025 Telephone [facility] [address] [facility] [place] [address] Bia Cao MD 06/19/2025 Refill [facility] [address] [place] [address] Olya Hardy NP Primary insomnia; Major depressive disorder, single episode, in full remission 05/08/2025 Telephone [facility] [address] [place] [address] Danica Wynne MD outgoing referral from Last 3 Months Immunizations Immunization Administration [...] 04/02/2024 How often do you attend chur or methodist services? More than 4 times per year 04/02/2024 Do you belong to any clubs o r organizations such as gnosticist groups, unions, fraternal or athletic groups, or [...] Recorded Patient Health Questionnaire-2 Score 0 08/14/2024 [facility] - Occupational [...] place to sleep or slept in a correction (including now)? No 04/02/2024 Comments Unknown Sex and Gender Information Value Date Recorded Sex Assigned at Not on file Legal Sex Female 7:26 PM EDT Gender Identity Not on file Sexual Orientation Not on file Last Filed Vital Signs Vital Sign Reading Time Taken Comments Blood Pressure 122/68 07/10/2025 1:02 PM EDT Pulse 71 07/10/2025 1:02 PM EDT Temperature 36.3 C (97.4 F) 01/23/2025 4:22 PM EST Respiratory Rate 18 07/10/2025 1:02 PM EDT Oxygen Saturation 98% 07/10/2025 1:02 PM EDT Inhaled Oxygen Concentration - - Weight 61.9 kg (136 lb 6.4 oz) 07/10/2025 1:02 P M EDT Height 160 cm (5' 3 ) 07/10/2025 1:02 PM EDT Body Mass Index 24.16 07/10/2025 1:02 PM EDT Plan of Treatment Upcoming Encounters Date Type Department Care Team (Late st Contact Info) Description 11/07/2025 1:40 PM EST Office Visit [facility] [address] [place] [address] Bia Cao MD [address] [place] [address] Health Maintenance Due Date Last Done Comments Influenza Vaccine (#1) 2025 0, 08/30/2019, 08/29/2018, Additional history exists Pneumococcal Vaccine: 65+ Years Completed 11/12/2020, 08/13/2015, 08/31/2003 Goals Goal Patient Goal Type Associated Problems Recent Progress Patient-Stated? Author Help patient manage antidepressant medication Care Plan Patient on antidepressant monitoring plan No Bia Cao MD Procedures Procedure Name Priority Date/Time Associated Diagnosis Comments CULTURE, URINE, ROUTINE Routine 06/26/2025 4:08 PM EDT Dysuria POCT URINALYSIS DIPSTICK Routine 06/26/2025 4:07 PM EDT Dysuria from Last 3 Months Results * (ABNORMAL) Urine culture (clean catch) (06/26/2025 4:08 PM EDT) MICRO NUMBER [id number] [facility] SPECIMEN QUALITY Adequate QUEST SOURCE: (QUEST) URINE QUEST STATUS FINAL QUEST ISOLATE 1 SEE NOTE(A) QUEST Comment: Greater than 100,000 CFU/mL of Citrobacter freundii C.freundii INT BEATRIZ AMOX/CLAVULANATE R 16 CEFAZOLIN R >=32 1 CEFEPIME S <=0.12 CEFTAZIDIME S <=0.5 CEFTRIAXONE S <=0.25 CIPROFLOXACIN S <=0.06 GENTAMICIN S <=1 IMIPENEM S 1 LEVOFLOXACIN S <=0.12 MEROPENEM S <=0.25 NITROFURANTOIN S <=16 PIP/TAZOBACTAM S <=4 TRIMETHOPRIM/SULFA S <=20 Legend: S = Susceptible I = Intermediate R = Resistant NS = Not susceptible SDD = Susceptible Dose Dependent * = Not Tested NR = Not Reported NN = See Therapy Comments THERAPY COMMENTS Note 1: For uncomplicated UTI caused by E. coli, K. pneumoniae or P. mirabilis: Cefazolin is susceptible if BEATRIZ <32 mcg/mL and predicts susceptible to the oral agents cefaclor, cefdinir, cefpodoxime, cefprozil, cefuroxime, cephalexin and loracarbef. Urine Urine specimen obtained by clean catch procedure / Unknown 06/26/2025 4:08 PM EDT 06/26/2025 4:08 PM EDT Narrative Resulting Agency Comment Performing Organization Information Site ID: [id number] Name: [employer] [facility] Address: [address] [place] [address], [address] [place] [id number] Director: Angel Noble MD Bia Cao MD LAB MICROBIOLOGY - GENERAL ORDER SHARI Final Result QUEST * (ABNORMAL) POCT Urinalysis dipstick (06/26/2025 4:07 PM EDT) Color, UA [place] Clarity, UA Cloudy Glucose, UA Negative Negative - 2000(110) ++++ mg/dL Bilirubin, UA Negative Negative - 4(70) +++ mg/dL Ketones, UA Negative Negative - 160(16) ++++ mg/dL Spec Grav, UA 1.005 1 - 1.03 Blood, UA Positive Negative - 50 Darryl/mcL pH, UA 6.5 5 - 9 Protein, UA 4+ Negative - 2000(20) ++++ mg/dL Urobilinogen, UA 0.2 0.2 - 12 mg/dL Leukocytes, UA 4+ Negative - 500+++ Obdulio/mcL Nitrite, UA Negative Negative - Positive Urine 06/26/2025 4:07 PM EDT Bia Cao MD POINT OF CARE TEST ENTER/EDIT OR DERABLES Final Result from Last 3 Months Additional Health Concerns Active Problems Noted Date Diagnosed Date Patient on antidepressant monitoring plan 2023 Insurance [employer] MEDICARE ADVANTAGE Care Teams Director Of Enterprise Architecture Relationship Specialty Start Date End Date Bia Cao MD [address] [place], [place] [id number] PCP - General Family Medicine 04/29/23 Bia Cao MD [address] [place] [address] PCP - [employer] 11/22/21
--- OUTSIDE RECORDS SUMMARY | 2025-08-06 08:59 | XMS_ITS | Encounter Summary ---
Author Organization [facility] Address [address] [facility] [place] [address] Care Team Providers Care Barrel Filler Name Role Phone Bia Cao MD Primary Care Provider [phone] Bia Cao MD Unavailable Encounter Details Date Type Department Care Team (Late st Contact Info) Description 03/25/2025 Abstract [facility] [address] [place] [address] Bia Cao MD [address] [facility] [place] [address] Social History Tobacco Use Types [...] often do you attend chur ch or confucianism services? More than 4 times per year 04/02/2024 Do you belong to any clubs o r organizations such as evangelical groups, unions, fraternal or athletic groups, or [...] Recorded Patient Health Questionnaire-2 Score 0 08/14/2024 [facility] - Occupational [...] place to sleep or slept in a fci (including now)? No 04/02/2024 Comments Unknown Sex and Gender Information Value Date Recorded Sex Assigned at Not on file Legal Sex Female 7:26 PM EDT Gender Identity Not on file Sexual Orientation Not on file documented as of this encounter Plan of Treatment Upcoming Encounters Date Type Department Care Team (Late st Contact Info) Description 11/07/2025 1:40 PM EST Office Visit [facility] [address] [place] [address] Bia Cao MD [address] [place], [place] [phone] documented as of this encounter Goals Goal [...] documented as of this encounter Care Teams Barrel Filler Relationship Specialty Start Date End Date Bia Cao MD [address] [place] [address] PCP - General Family Medicine 04/29/23 Bia Cao MD [address] [place] [address] PCP - [employer] 11/22/21 documented as of this encounter
--- OUTSIDE RECORDS SUMMARY | 2025-08-06 08:59 | XMS_ITS | Encounter Summary ---
Author Organization [facility] Address [address] [facility] [place] [address] Care Team Providers Care Ec Teacher Name Role Phone Bia Cao MD Primary Care Provider [phone] Bia Cao MD Unavailable Encounter Details Date Type Department Care Team (Late st Contact Info) Description 07/17/2024 Abstract [facility] [address] [place] [address] Bia Cao MD [address] [facility] [address] [place] [address] Social History Tobacco Use Types [...] often do you attend chur ch or jehovah's witness services? More than 4 times per year 04/02/2024 Do you belong to any clubs o r organizations such as samaritan groups, unions, fraternal or athletic groups, or [...] Recorded Patient Health Questionnaire-2 Score 1 12/06/2023 [facility] - Occupational [...] Description 11/07/2025 1:40 PM EST [facility] [address] [facility] [place] [address] Bia Coa MD [address] [facility] [place] [address] documented as of this encounter Visit Diagnoses Not on filedocumented in this encounter Additional Health Concerns Assessment Noted Time PHQ-9 Depression Total Score: 7 12/06/19 24 2:00 PM EST documented as of this encounter Care Teams Ec Teacher Relationship Specialty Start Date End Date Bia Cao MD [address] [facility] [place] [address] PCP - General Family Medicine 04/29/23 Bia Cao MD [address] [facility] [place] [address] PCP - Elaine 11/22/21 documented as of this encounter
--- OUTSIDE RECORDS SUMMARY | 2025-08-06 08:59 | XMS_ITS | Clinical Summary ---
Author Organization [facility] Address [address] [place] [address] Care Team Providers Care Oxygen Furnace Operator Name Role Phone (Hist), No Pcp Primary Care Provider Corey Messina MD Unavailable [phone] Allergies Active Allergy Reactions Criticality Noted [...] lower risk 9 04/04/2024 Data from: https://www.neighborhoodatlas.medicine.[facility].edu/. Last address used for calculation 2033 [...] Vaccine (1 - 1-dose 75+ series) 2020 Advance Directive Discussion 11/22/2024 Medicare Advantage Annual Wellness Visit 11/22/2024 Influenza Vaccine (#1) 2025 0, 08/30/2019, 08/29/2018, Additional history exists Diabetes Screening 02/10/2027 02/11/2024, 0 01/11/2024, 2023, Additional history exists Pneumococcal Vaccine: 50+ Completed 11/12/2020, Bone Density Screening Completed 12/03/2023 Mammogram Screening Discontinued 02/22/2024, 02/22/2024, 12/13/2020, Additional history exists Insurance [employer] MEDICARE Care Teams Oxygen Furnace Operator Relationship Specialty Start Date End Date (Hist), No Pcp PCP - General 11/04/17 Corey Chacon MD NI Referring Team Neurosurgery 03/24/24
--- OUTSIDE RECORDS SUMMARY | 2025-08-06 08:59 | XMS_ITS | Encounter Summary ---
Author Organization [facility] Address [id number] [address] [place] [address] Care Team Providers Care Calciner Operator Name Role Phone Bia Cao MD Primary Care Provider [phone] Encounter Details Date Type Department Care Team (Late Contact Info) Description 10/01/2021 Orders Only [facility] [address] [place] [id number] Rama Light MA Numbness and tingling of both upper extremities Social History Tobacco Use Types Packs/Day Years [...] Office Visit [facility] Department of [facility] [address] [address] Jessenia Dorsey, WELFARE OFFICER-CRUSHER LOADER OPERATOR [address] [address] 08/17/2025 1:00 PM EDT Infusion [facility] - Medical Oncology [address] [place] [address] 02/26/2026 1:00 PM EDT Office Visit [facility] [address] [place] [address] [place] [address] Krishna Kramer MD [address] [place] [address] documented as of this encounter Visit Diagnoses Diagnosis Numbness and tingling of both upper extremities documented in this encounter Additional Health Concerns Infection Onset Date Last Indicated Resolved Time COVID-19 Rule-Out 11/01/2021 11/01/2021 11/02/2021 12:13 PM EST COVID-19 Rule-Out 03/02/2023 03/02/2023 03/02/2023 3:25 AM EDT Assessment Noted Time PHQ-9 Depression Total Score: 0 07/01/20 21 11:00 AM EDT documented as of this encounter Care Teams Calciner Operator Relationship Specialty Start Date End Date Bia Cao MD PCP - General Family Medicine 02/05/23 documented as of this encounter
--- OUTSIDE RECORDS SUMMARY | 2025-08-06 08:59 | XMS_ITS | Encounter Summary ---
Author Organization [facility] Address [id number] [address] [place] [address] Care Team Providers Care Psychiatric Nursing Aide Name Role Phone Bia Cao MD Primary Care Provider [phone] Reason for Visit * Reason Onset Date Comments Med Refill 01/29/2021 Encounter Details Date Type Department Care Team (Late st Contact Info) Description 01/29/2021 Refill [facility] [address] [place] [phone] Jessenia Nicole RN Med Refill Social History Tobacco Use Types Packs/Day Years Used Date Smoking Tobacco: Never Smokeless Tobacco: Never Alcohol Use Standard Drinks/Week Comments No 0 (1 standard drink = 0.6 oz pur e alcohol) PHQ-2 Answer Date Recorded Total Score 0 12/30/2020 Childcare Answer Date Recorded Childcare Unknown 04/26/2019 [...] have Coronavirus / COVID-19? No / Unsure 01/29/2021 8:46 AM EST documented as of this encounter Miscellaneous Notes * Telephone Encounter - CHACE Cunningham - 01/29/2021 2:16 PM EST signed documented in this encounter Plan of Treatment Upcoming Encounters Date Type Department Care Team (Late st Contact Info) Description 08/16/2025 11:30 AM EDT Office Visit [facility] Department of [facility] [address] [facility] [address] [place] [address] Jessenia Dorsey, MASOOD-SUPERVISOR GRIPS [address] [facility] [address] [place] [phone] 08/17/2025 1:00 PM EDT Infusion [facility] - Medical On[facility] [address] [place] [address] 02/26/2026 1:00 PM EDT Office Visit [facility] [address] [place] [address] [place] [address] [address] Krishna Kramer MD [address] [place] [address] documented as of this encounter Results * AST (04/10/2021 1:31 PM EDT) AST 19 0 - 41 U/L 04/10/2021 5:36 PM EDT [facility] Serum / Unknown 04/10/2021 1 :31 PM EDT 04/10/2021 1:32 PM EDT us Sushila MAS LAB BLOOD ORDERABLES Final Result [facility] [address] [facility] [place] [address] * ALT (04/10/2021 1:31 PM EDT) ALT 20 0 - 31 U/L 04/10/2021 5:36 PM EDT [facility] Serum / Unknown 04/10/2021 1 :31 PM EDT 04/10/2021 1:32 PM EDT Sushila Tyler SHOE CLERK-SUPERVISOR GRIPS LAB BLOOD ORDERABLES Final Result LEI [facility] [address] [facility], [address] [place] [address] * (ABNORMAL) Lipid profile (04/10/2021 1:31 PM EDT) [facility] Cholesterol 136(L) 150 - 200 mg/dL 04/10/2021 5:36 PM EDT [facility] Triglycerides 197(H) 27 - 150 mg/dL 04/10/2021 5:36 PM EDT [facility] HDL Cholesterol 44 >39 mg/dL 5:36 PM EDT [facility] Comment: HDL <40 mg/dL - High Risk HDL > or = 40mg/dL- Desirable HDL >60 mg/dL - Negative Risk VLDL 39(H) 0 - 30 mg/dL 04/10/2021 5:36 PM EDT [facility] LDL (calc) 53 <130 mg/dL 04/10/2021 5:36 PM EDT [facility] Comment: LDL <100 mg/dL - Desirable LDL >160 mg/dL - High Risk Cholesterol:HDL Ratio 3.1 1.0 - 5.0 04/10/2021 5:36 PM EDT [facility] Serum / Unknown 04/10/2021 1 :31 PM EDT 04/10/2021 1:32 PM EDT Sushila Tyler SHOE CLERK-SUPERVISOR GRIPS LAB BLOOD ORDERABLES Final Result [facility] [address] [facility] [address] [facility] [address] [place] [address] documented in this encounter Visit Diagnoses Diagnosis Mixed hyperlipidemia- Primary documented in this encounter Additional Health Concerns Infection Onset Date Last Indicated Resolved Time COVID-19 Rule-Out 11/01/2021 11/01/2021 11/02/2021 12:13 PM EST COVID-19 Rule-Out 03/02/2023 03/02/2023 03/02/2023 3:25 AM EDT Assessment Noted Time PHQ-9 Depression Total Score: 0 12/30/19 21 12:51 PM EST documented as of this encounter Care Teams Psychiatric Nursing Aide Relationship Specialty Start Date End Date Bia Cao MD PCP - General Family Medicine 02/05/23 documented as of this encounter
--- OUTSIDE RECORDS SUMMARY | 2025-08-06 08:59 | XMS_ITS | Encounter Summary ---
Author Organization [facility] Address [address] [place] [address] Care Team Providers Care Smelting Engineer Name Role Phone Bia Cao MD Primary Care Provider [phone] Bia Cao MD Unavailable Encounter Details Date Type Department Care Team (Late Contact Info) Description 09/05/2023 Abstract [facility] [address] [place] [address] Aruna Petty LISW-S [address] [place], [place] [id number] Social History Tobacco Use Types Packs/Day Years [...] EST Office Visit [facility] [address] [facility] [place] [address] Bia Cao MD [address] [place], [place] [phone] documented as of this encounter Visit Diagnoses Not on filedocumented in this encounter Additional Health Concerns Assessment Noted Time PHQ-9 Depression Total Score: 6 06/04/20 23 3:00 PM EDT documented as of this encounter Care Teams Smelting Engineer Relationship Specialty Start Date End Date Bia Cao MD [address] [place] [address] PCP - General Family Medicine 04/29/23 Bia Cao MD [address] [place] [address] PCP - Aetyu 11/22/21 documented as of this encounter
--- OUTSIDE RECORDS SUMMARY | 2025-08-06 08:59 | XMS_ITS | Encounter Summary ---
Author Organization [facility] Address [id number] [address] [place] [address] Care Team Providers Care Cut Tobacco Bulker Name Role Phone Bia Cao MD Primary Care Provider [phone] Encounter Details Date Type Department Care Team (Late st Contact Info) Description 05/04/2023 [facility] [address] [facility] [address] [place] [phone] Nazanin Hawkins RN Social History Tobacco Use Types Packs/Day Years [...] encounter Miscellaneous Notes * Telephone Encounter - Nazanin Hawkins RN - 05/04/2023 1:58 PM EDT Patient called and stated since the additional of procardia her has problems with her memory, 1-2+ edema and doesn't feel good. bp high 204/80 low 148/51, today 168/72 . She would like this changed. Please advise. * Telephone Encounter - MINH Cloud - 05/04/2023 1:58 PM EDT Discontinue Procardia. Add hydralazine 100 mg t.i.d., she is currently on 50 mg t.i.d.. Follow-up with DC in office at next available appointment for continued blood pressure monitoring and titration. * Telephone Encounter - Nazanin Hawkins RN - 05/04/2023 1:58 PM EDT Attempted to contact patient and left a voicemail for patient to call back. * Telephone Encounter - EMMA Jauregui - 05/04/2023 1:58 PM EDT Informed patient to take Hydralazine 100 mg TID and she refused because she states it will drop herblood pressure too low. She states she has tried 100 mg in the past. She says she will take 100 mg in the morning and 100 mg in the afternoon and 50 mg at bedtime. I do have her scheduled for follow up with Dr. Dallas on 05/10/2023. Please advise. documented in this encounter Plan of Treatment Upcoming Encounters Date Type Department Care Team (Late st Contact Info) Description 08/16/2025 11:30 AM EDT Office Visit [facility] Department of [facility] [address] [facility] [employer] [address] [address] Jessenia Dorsey, WARDROBE CONSULTANT-CONTINUOUS PILLOWCASE CUTTER [address] [employer] [address] [phone] 08/17/2025 1:00 PM EDT Infusion [facility] - Medical Oncology [address] [place] [phone] 02/26/2026 1:00 PM EDT Office Visit [facility] [address] [facility] [place] [address] Krishna Kramer MD [address] [place] [address] documented as of this encounter Goals Goal [...] documented as of this encounter Care Teams Cut Tobacco Bulker Relationship Specialty Start Date End Date Bia Cao MD PCP - General Family Medicine 02/05/23 documented as of this encounter
--- OUTSIDE RECORDS SUMMARY | 2025-08-06 08:59 | XMS_ITS | Clinical Summary ---
Author Organization [facility] Address [address] [facility], [address] [place] [address] Care Team Providers Care Clinical Laboratory Technologist Name Role Phone Bia Cao MD Primary Care Provider [phone] Allergies Active Allergy Reactions Criticality Noted Date Comments Amoxicillin-Pot Clavulanate 08/14/20 11 Egg White Swelling 08/14/2011 Says about 1964? and only one arm affected. No rash, hives, or trouble breathing Lincomycin Hcl 08/14/2011 Other 05/06/2018 FLU VACCINE, egg prep Penicillins 08/14/2011 [...] Done Comments Lipids 1955 Depression Screen 1957 DEXA (modify frequency per FRAX score) 2000 Shingles vaccine (2 of 3) 01/17/2010 11/22/2009 DTaP/Tdap/Td vaccine (1 - Tdap) 08/22/2011 08/21/2011 Respiratory Syncytial Virus (RSV) or age 60 yrs+ (1 - 1-dose 75+ series) 2020 Annual Wellness Visit (Medicare Advantage) 11/22/2024 Flu vaccine (#1) 06/22/2025 09/18/2020, , 08/30/2019, Additional history exists COVID-19 Vaccine ( - 2024- season) 2025 03/12/2021, 03/11/2021, 02/12/2021 Colonoscopy Discontinued 07/07/2018 Pneumococcal 50+ years Vaccine [...] Health Maintenance Insurance [employer] MEDICARE Care Teams Clinical Laboratory Technologist Relationship Specialty Start Date End Date Bia Cao MD [address] [place] [address] PCP - General 06/16/19
--- OUTSIDE RECORDS SUMMARY | 2025-08-06 08:59 | XMS_ITS | Clinical Summary ---
Author Organization [facility] Address [id number] [address] [place] [address] Care Team Providers Care Roller Turner Name Role Phone Bia Cao MD Primary Care Provider [phone] Allergies Active Allergy Reactions Criticality Noted Date Comments Adhesive Medium 11/04/2016 States causes blisters/even paper tape Aspartame Other (See Comments) Low 02/12/2017 migraines Amoxicillin-Pot Clavulanate Rash Low 11/04/2016 Tolerated cefazolin in June of 2021. Clavulanic Acid Rash Low 02/12/2017 Clemizole Rash Low 02/12/2017 Oxaprozin Rash Low 11/04/2016 Eggshell Membrane Medium 11/04/2016 States medications grown on/flu shot arm swelled when exposed to egg shell Indomethacin Hypotension High 05/02/2021 fainting Influenza Virus Vaccines Swelling Medium 02/12/2017 Lincomycin Anaphylaxis High 11/04/2016 Lincosamides Anaphylaxis High 02/12/2017 Other Other (See Comments) 12/11/2021 Penicillins Rash Low 11/04/2016 Tolerated cefazolin in June of 2021. Poultry 03/02/2023 Sulfa (Sulfonamide Antibiotics) Hives Medium 11/11/2022 Sulfamethoxazole-Tri methoprim Hives 10/22/2023 [id number]-[id number] Antimigraine Agents High 02/19/2025 History of cardiovascular and cerebrovascular disease. Triptans increase stroke risk. Medications * This document contains information received from the source organization and may not represent a complete record from that organization. escitalopram (LEXAPRO) 20 mg tabletIndication s:major depressive disorder Take 1 tablet (20 mg total) by mouth daily with dinner Indications: major depressive disorder. Active calcium carbonate-vitami n D3 600 mg(1,500mg) -800 units tabletIndication s:prevention of vitamin D deficiency Take 600 mg by mouth nightly Indications: prevention of vitamin D deficiency. Active cholecalciferol, vitamin D3, (VITAMIN D3) 1,000 units tabletIndication s:vitamin D deficiency 1 tablet (1,000 Units total) before breakfast Indications: low vitamin D levels. Active magnesium 250 mg tabletIndication s:for migraine prevention Take 2 tablets (500 mg total) by mouth in the morning. Indications: for migraine prevention. At supper time. Active therapeutic multivitamin (THERAGRAN) tablet Take 1 tablet by mouth daily with dinner. Active fexofenadine (RALPH) 180 mg tablet Take 1 tablet (180 mg total) by mouth daily with breakfast. Active albuterol (PROVENTIL HFA;VENTOLIN HFA) 90 mcg/actuation inhaler Inhale 2 puffs every 4 (four) hours as needed for wheezing or shortness of breath. PRO AIR Active oxybutynin XL (DITROPAN-XL) 10 mg 24 hr tablet Take 1 tablet (10 mg total) by mouth daily with breakfast. 0 Active zafirlukast (ACCOLATE) 20 mg tablet Take 1 tablet (20 mg total) by mouth in the morning and 1 tablet (20 mg total) before bedtime. 1 Active aspirin 81 mg Take 1 tablet (81 mg total) by mouth in the morning. Active acetaminophen (TYLENOL EXTRA STRENGTH) 500 mg tablet Take 2 tablets (1,000 mg total) by mouth every 6 (six) hours as needed for pain. Active aspirin-acetamin ophen-caffeine (EXCEDRIN MIGRAINE) 250-250-65 mg per tablet Take 1 tablet by mouth every 6 (six) hours as needed for headaches. Active atorvastatin (LIPITOR) 40 mg tablet Take 1 tablet (40 mg total) by mouth in the morning. 2 Active carvediloL (COREG) 25 mg tabletIndication s:Essential hypertension Take 1 tablet (25 mg total) by mouth in the morning and 1 tablet (25 mg total) before bedtime. 180 tablet 3 3 Active ascorbic acid (VITAMIN C) 500 mg tablet Take 2 tablets (1,000 mg total) by mouth in the morning. Active L.acidoph/B.anim fozia/B.longum (FLORAJEN DIGESTION ORAL) Take 1 tablet by mouth in the morning. Active fenofibrate (LOFIBRA) 160 mg tablet Take 1 tablet (160 mg total) by mouth nightly. Active lisinopril-hydro CHLOROthiazide (ZESTORETIC) 20-12.5 mg per tabletIndication s:Essential hypertension Take 1 tablet by mouth in the morning. 90 tablet 3 3 Active buprenorphine (BUTRANS) 7.5 mcg/hour patch weekly Place 1 patch on the skin once a week. 3 Active omeprazole (PriLOSEC) 40 mg capsuleIndicatio ns:Gastroesophag eal reflux disease, unspecified whether esophagitis present Take 1 capsule (40 mg total) by mouth in the morning. 180 capsule 3 4 Active famotidine (PEPCID) 20 mg tablet Take 1 tablet (20 mg total) by mouth nightly. 90 tablet 3 4 Active hydrALAZINE (APRESOLINE) 100 mg tabletIndication s:Essential hypertension Take one twice a day may take an additional 50mg daily if Systolic BP is greater than 170 60 tablet 11 4 Active Additional Information Patient taking differently: Take one a day may take an additional 50mg daily if Systolic BP is greater than 170, Reported on 07/20/2025 methocarbamoL (ROBAXIN) 500 mg tablet Take 2 tablets (1,000 mg total) by mouth. 4 Active ferrous sulfate (FeroSuL) 325 (65 FE) mg tablet Take 1 tablet (325 mg total) by mouth in the morning and 1 tablet (325 mg total) in the evening. Take with meals. TAKE 1 TABLET BY MOUTH EVERY MORNING AND 1 TABLET EVERY EVENING WITH MEALS. 60 tablet 2 4 Active Additional Information Patient not taking.Reported on 07/20/2025 mirabegron (MYRBETRIQ) 50 mg tablet extended release 24 hr Take 1 tablet (50 mg total) by mouth in the morning. 30 tablet 5 Active UBRELVY 100 mg tabletIndication s:Migraine without aura and without status migrainosus, not intractable Take 100 mg by mouth once as needed (migraine) for up to 1 dose. 16 tablet 12 5 Active amitriptyline (ELAVIL) 50 mg tabletIndication s:Migraine without aura and without status migrainosus, not intractable,Psyc hophysiological insomnia Take 1 tablet (50 mg total) by mouth nightly. 90 tablet 3 5 Active levothyroxine (SYNTHROID, LEVOTHROID) 150 MCG tabletIndication s:Hypothyroidism , unspecified type 6 days a week 90 tablet 1 5 Active Active Problems Problem Noted Date Diagnosed Date Osteoporosis 12/06/2024 Urge incontinence 08/29/2024 Overview (06/13/2025): 08/29/2024: Urge incontinence. Multifactorial including her back issues, constipation, caffeine consumption. Recommended decreasing caffeine as well as addressing constipation with gvur-[id number]-jazbafn agents. If no improvement can add beta [...] not interested in pursuing her incontinence further. Assessment & Plan (06/13/2025 2:22 PM EDT): We will see her back in January with a KUB. She will call sooner if she has any problems. If she suspects an infection, she can contact the office so that we can have her stop at the lab for culture Assessment & Plan (02/27/2025 3:14 PM EDT): We discussed cranberry/D mannose supplements, topical estrogen cream, methenamine, or a prophylactic antibiotic. Acute kidney injury 03/02/2023 Hypotension 03/02/2023 Kidney stones 03/02/2023 Overview (06/13/2025): 06/13/25: CT 02/13/2025 showed a few small stones in the right kidney. We will check with a KUB in January 2026 Acquired hypothyroidism 03/02/2023 Cervical spondylosis without myelopathy 04/01/20 Overview (04/01/2022): Added automatically from request for surgery [id number] Carpal tunnel syndrome 10/28/2021 Gastroesophageal reflux disease without esophagi tis 09/15/2021 Postoperative cerebrospinal fluid leak Diastolic dysfunction 05/23/2021 LVH (left ventricular hypertrophy) 05/23/2021 Hypotension due to drugs 05/23/2021 Cervicalgia 10/28/2020 Cervical radiculopathy 10/28/2020 Chronic hoarseness 07/24/2020 Disorder of sacrum 05/01/2020 Overview (05/01/2020): Added automatically from request for surgery [id number] SOB (shortness of breath) 11/06/2019 Major depressive disorder, s vandana episode, in full remission 10/24/2019 Chronic idiopathic constipation 07/10/2019 Balance problem 06/12/2019 Nocturnal muscle spasm 06/12/2019 Disc displacement, lumbar 05/05/2019 Overview (05/05/2019): Added automatically from request for surgery [id number] Spinal stenosis of lumbar region 05/05/2019 Overview (05/05/2019): Added automatically from request for surgery [id number] Trapezius muscle spasm 05/05/2019 Lumbago 03/24/2019 Overview (03/29/2019): Added automatically from request for surgery [id number] Bilateral occipital neuralgia 03/02/2019 Psychophysiological insomnia 12/12/2018 Migraine without aura and wi thout status migrainosus, not intractable 12/12/2018 Essential tremor 12/12/2018 Lumbosacral spondylosis without myelopathy 11/23 Overview (11/23/2018): Added automatically from request for surgery [id number] Preop cardiovascular exam 05/02/2018 Chronic pain disorder 2018 History of depression 2018 Spinal stenosis of lumbar re gion without neurogenic claudication 02/23/2018 Overview (02/23/2018): Added automatically from request for surgery [id number] Chronic left-sided low back pain 01/27/2018 Bilateral hip pain 12/02/2017 Overview (12/02/2017): Added automatically from request for surgery [id number] Trochanteric bursitis of both hips 11/03/2017 Hip pain, bilateral 10/13/2017 Sacrococcygeal disorders, not elsewhere classifi ed 02/12/2017 Other specified depressive episodes 02/12/2017 Other intervertebral disc displacement, lumbar r egion 02/12/2017 Herniation of lumbar intervertebral disc with ra diculopathy 01/14/2017 Lumbar herniated disc 01/07/2017 Lumbar spinal stenosis 11/04/2016 Weakness 11/04/2016 Midline low back pain with right-sided sciatica 01/02/2016 Other hyperlipidemia 11/08/2015 Essential hypertension 03/13/2013 DDD (degenerative disc disease), lumbar 08/14/20 11 Overview (06/22/2018): Overview: L3-4, L4-5 Impingement syndrome of right shoulder 1 Radicular leg pain 08/14/2011 DDD (degenerative disc disease), lumbar 08/14/20 11 Overview (06/23/2021): L3-4, L4-5 PONV (postoperative nausea and vomiting) Prolonged emergence from general anesthesia Hyperlipidemia Resolved Problems Problem Noted Date Diagnosed Date Resolved Date SDH (subdural hematoma) 01/04/201806/22 Encounters Date Type Department Care Team Description 07/20/2025 1:00 PM EDT Infusion [facility] - Medical On[facility] [address] [place] [phone] Osteoporosis, unspecified osteoporosis type, unspecified pathological fracture presence (Primary Dx) 07/20/2025 Travel 07/16/2025 Results Follow-[facility]ology, A Department of [facility] [address] [address] Jovany Johnson MD Calcium 07/16/2025 Travel 06/13/2025 2:00 PM EDT [facility] [address] [place] [phone] Liss Jauregui PA Kidney stones (Primary Dx); Urge incontinence 06/13/2025 12:30 PM EDT Infusion [facility] - Medical Oncology [address] [place] [phone] Osteoporosis, unspecified osteoporosis type, unspecified pathological fracture presence (Primary Dx) 06/13/2025 Results Follow-Up [facility]ocr[facility]ology, A Department of [address] [address] Jovany Johnson MD Calcium 06/12/2025 Travel 05/16/2025 10:30 AM EDT Infusion [facility] - Medical Oncology [address] [place] [phone] Osteoporosis, unspecified osteoporosis type, unspecified pathological fracture presence (Primary Dx) 05/15/2025 Travel from Last 3 Months Immunizations Immunization Administration Dates Next Due COVID-19, mRNA, LNP-S, PF, 100mcg/0.5mL Dose ,02/12/2021 Influenza High Dose Preservative Free IM 020 Influenza, Injectable, quadrivalent (PF) 018 Influenza, Recombinant, Quad rivalent, Injectable, Preserv 09/17/2020,08/30/2019 Pneumococcal Conjugate 13-Valent 11/12/2020 Td (adult), 5 Lf tetanus tox oid, preservative free, adsorbed 08/21/2011 Family History Medical History Relation Name Comments Arthritis Father Dre Baer Back Problems Father Dre Baer COPD Father Dre Baer Cancer Father Dre Baer Neck Problems Father Dre Baer Breast cancer Maternal Aunt 1 Nisa Dunham Vision loss Maternal Aunt 1 Nisa Dunham Breast cancer Maternal Aunt 2 Veronica Breast cancer Maternal Aunt 3 Radha Hulit Breast cancer Maternal Aunt 4 Janet Mejia Breast cancer Maternal Aunt 5 Jannette Kness Early Maternal Aunt 6 Lorna Pittenger Heart disease Maternal Grandfather Shubham Celestintenger Breast cancer Maternal Grandmother Fany Pittenger Ovarian cancer Maternal Grandmother Fany Pittenger Uterine cancer Maternal Grandmother Fany Pittenger Colon cancer Maternal Uncle 1 Vijay Pittenger Heart disease Maternal Uncle 2 Gilmer Pitterger Heart disease Maternal Uncle 3 Osgood Pittenger Heart disease Maternal Uncle 4 Ruben Pittenger Heart disease Maternal Uncle 5 Luis Pittenger Anesthesia problems Mother Chloe Baer Mother w ith N/V Breast cancer Mother Chloe Baer Colon cancer Mother Chloe Baer Heart disease Mother Chloe Baer Hypertension Mother Chloe Baer Diabetes Paternal Grandfather Tra Keuyr Stroke Paternal Grandfather Tra Keyur Arthritis Paternal Grandmother Sandra Keyur Diabetes Paternal Grandmother Sandra Keyur Memory loss Paternal Grandmother Sandra Kisharebekah Stroke Paternal Grandmother Sandra Keyur Alcohol abuse Paternal Uncle 1 Jesús Keyur COPD Paternal Uncle 1 Jesús Keyur COPD Paternal Uncle 2 Jluis Keyur Bleeding Disorder Neg Hx Clotting disorder Neg Hx Relation Name Status Comments Father Dre Baer Maternal Aunt 1 Nisa Dunham Maternal Aunt 2 Veronica Maternal Aunt 3 Radha Hulit Maternal Aunt 4 Janet Mejia Maternal Aunt 5 Jannette Kness Maternal Aunt 6 Lorna Pittenger Maternal Grandfather Shubham Angelesger Maternal Grandmother Fany Celestintenger Maternal Uncle 1 Vijay Pittenger Maternal Uncle 2 Gilmer Pitterger Maternal Uncle 3 Denys Pittenger Maternal Uncle 4 Ruben Pittenger Maternal Uncle 5 Luis Pittenger Mother Chloe Baer Paternal Grandfather Tra Baer Paternal Grandmother Sandra Kisharebekah Paternal Uncle 1 Jesús Baer Paternal Uncle 2 Jluis Baer Social History Tobacco Use Types Packs/Day Years Used Date Smoking Tobacco: Never Passive Smoke Exposure: Past Smokeless Tobacco: Never Tobacco Cessation:Counseling Given: Not [...] Orientation Straight 05/22/2021 10 :31 PM EDT Last Filed Vital Signs Vital Sign Reading Time Taken Comments Blood Pressure 116/52 07/20/2025 1:14 PM EDT Pulse 71 07/20/2025 1:14 PM EDT Temperature 36.9 C (98.5 F) 07/20/2025 1:14 PM EDT Respiratory Rate 16 07/20/2025 1:14 PM EDT Oxygen Saturation 95% 07/20/2025 1:14 PM EDT Inhaled Oxygen Concentration - - Weight 61.9 kg (136 lb 6.4 oz) 07/20/2025 1:14 P M EDT Height 157.5 cm (5' 2.01 ) 07/20/2025 1:14 PM ED T Body Mass Index 24.94 07/20/2025 1:14 PM EDT Plan of Treatment Upcoming Encounters Date Type Department Care Team (Late st Contact Info) Description 08/16/2025 11:30 AM EDT Office Visit [facility] Department of [facility] [address] [address] Jessenia Dorsey, RESEARCH NEUROPSYCHOLOGIST-ALTERATION SPECIALIST [address] [phone] 08/17/2025 1:00 PM EDT Infusion [facility] - Medical Oncology [address] [place] [address] 02/26/2026 1:00 PM EDT Office Visit [facility] [address] [place] [address] [place] [address] Krishna Kramer MD [address] [place] [id number] Health Maintenance Due Date Last Done Comments Zoster (Shingles) Vaccine (2 of 3) 01/17/2010 11/22/2009 DTaP,Tdap and Td Vaccines (2 - Td or Tdap) 08/21/2021 08/21/2011 COVID-19 Vaccine (4 - 2023-2 5 season) 2025 10/26/2024, 03/12/2021, 02/12/2021 Influenza Vaccine 07/23/2025 09/17/2020, , 08/30/2019, Additional history exists Depression Screening 02/12/2026 02/12/2025 Fall Risk Screening 02/12/2026 02/12/2025 Tobacco Screening 06/13/2026 06/13/2025 Goals Goal Patient Goal Type Associated Problems Recent Progress Patient-Stated? Author safe discharge to home General Yes Ginna Jean Baptiste, RN Note: Evaluation of progress towards goal: safe transition from hospital to home with support of her friends/neighbors Medical Devices Implanted Type Area Shank Tapper Device Identifier Shelf Expiration Date Model / Serial / Lot Patch Dura 1x1in Drmtrx-[place] + Clgn Rgnrt Membr Strl - [id number] Implanted:Qty : 1 on 07/03/2021 by Corey Chacon MD at [facility] Graft N/A: Back REGINA CRANIOMAXILLOFACIAL 03/21/2023 [id number] / [id number] Spinal Fusion L2-4 Fusion Procedures Procedure Name Priority Date/Time Associated Diagnosis Comments CALCIUM Routine 07/16/2025 9:56 AM EDT Osteoporosis, unspecified osteoporosis type, unspecified pathological fracture presence CALCIUM Routine 06/12/2025 11:03 AM EDT Osteoporosis, unspecified osteoporosis type, unspecified pathological fracture presence CALCIUM Routine 05/15/2025 9:16 AM EDT Osteoporosis, unspecified osteoporosis type, unspecified pathological fracture presence from Last 3 Months Results * Calcium (07/16/2025 9:56 AM EDT) Only the most recent of3 resultswithin the time period is included. CALCIUM 9.4 8.5 - 10.5 mg/dL 07/16/2025 5:21 PM EDT [facility] Blood Venipuncture / Unknown 07/16/2025 9:56 AM EDT 07/16/2025 9:57 AM EDT Jovany Johnson MD LAB BLOOD ORDERABLES Final Result [facility] [address] [place] [address], from Last 3 Months Insurance [employer] MEDICARE Advance Directives Documents on File Type Date Recorded Patient Bench Worker Binding Expl anation Durable Power of Rapid Transit Operator 07/16/2021 3:45 PM Living Will 07/16/2021 3:40 PM * Full Code (Latest Code Status on File) Date Activated Date Inactivated Comments 03/02/2023 4:15 AM 03/03/2023 3:57 PM * Full Code Date Activated Date Inactivated Comments 07/03/2021 9:57 AM 07/10/2021 6:07 PM * Full Code Date Activated Date Inactivated Comments 01/04/2018 4:32 PM 01/06/2018 6:44 PM * Full Code Date Activated Date Inactivated Comments 01/14/2017 8:37 AM 01/15/2017 5:28 PM Care Teams Roller Turner Relationship Specialty Start Date End Date Bia Cao MD PCP - General Family Medicine 02/05/23
--- OUTSIDE RECORDS SUMMARY | 2025-08-06 08:59 | XMS_ITS | Encounter Summary ---
Author Organization [facility] tem Address [id number] [address] [place] [address] Care Team Providers Care Site Medical Director Name Role Phone Bia Cao MD Primary Care Provider [phone] Reason for Visit * Reason Onset Date Comments Med Refill 12/22/2019 Encounter Details Date Type Department Care Team (Late Contact Info) Description 12/22/2019 Refill [facility] [address] [facility] [address] [place] [address] Yordan Crowley MA Occipital neuralgia of right side; Trapezius muscle spasm Social History Tobacco Use Types Packs/Day Years Used Date Smoking Tobacco: Never Smokeless Tobacco: Never Alcohol Use Standard Drinks/Week Comments No 0 (1 standard drink = 0.6 oz pur e alcohol) PHQ-2 Answer Date Recorded PHQ-2 Score 0 12/12/2018 Childcare Answer Date Recorded Childcare Unknown 04/26/2019 Employment Answer Date Recorded Employment Unknown 04/26/2019 Comments No Sex and Gender Information Value [...] Visit [facility], A Department of [place] [address] [phone] Jessenia Dorsey, SCRAP WORKER-CUSTOMER CARE VOICE CONSULTANT [address] [address] 08/17/2025 1:00 PM EDT Infusion [facility] [place] - Medical Oncology [address] [place] [address] 02/26/2026 1:00 PM EDT Office Visit [facility] [address] [place] [address] [place] [address] [address] Krishna Kramer MD [address] [place] [address] documented as of this encounter Visit Diagnoses Diagnosis Occipital neuralgia of right side Trapezius muscle spasm documented in this encounter Additional Health Concerns Infection Onset Date Last Indicated Resolved Time COVID-19 Rule-Out 11/01/2021 11/01/2021 11/02/2021 12:13 PM EST COVID-19 Rule-Out 03/02/2023 03/02/2023 03/02/2023 3:25 AM EDT Assessment Noted Time PHQ-9 Depression Total Score: 0 07/25/20 1:00 PM EDT documented as of this encounter Care Teams Site Medical Director Relationship Specialty Start Date End Date Bia Cao MD PCP - General Family Medicine 02/05/23 documented as of this encounter
--- OUTSIDE RECORDS SUMMARY | 2025-08-06 08:59 | XMS_ITS | Encounter Summary ---
Author Organization [facility] Address [address] [place] [address] Care Team Providers Care Livestock Judging Coach Name Role Phone Bia Cao MD Primary Care Provider [phone] Bia Cao MD Unavailable Encounter Details Date Type Department Care Team (Late Contact Info) Description 07/06/2023 Abstract CELE Nicole [facility] Medicine [address] [facility] [address] Bia Cao MD [address] [facility] [place] [address] Social History Tobacco Use Types [...] 1:40 PM EST Office Visit CELE Nicole [facility] [address] [facility] [address] Bia Cao MD [address] [facility] [place] [address] documented as of this encounter Visit Diagnoses Not on filedocumented in this encounter Additional Health Concerns Assessment Noted Time PHQ-9 Depression Total Score: 6 06/04/20 23 3:00 PM EDT documented as of this encounter Care Teams Livestock Judging Coach Relationship Specialty Start Date End Date Bia Cao MD [address] [place] [address] PCP - General Family Medicine 04/29/23 Bia Cao MD [address] [place] [address] PCP - Aetyu 11/22/21 documented as of this encounter
--- OUTSIDE RECORDS SUMMARY | 2025-08-06 08:59 | XMS_ITS | Encounter Summary ---
Author Organization [facility] tem Address [id number] [address] [place] [address] Care Team Providers Care Professor Of Practice Name Role Phone Bia Cao MD Primary Care Provider [phone] Encounter Details Date Type Department Care Team (Late st Contact Info) Description 04/18/2021 Orders Only [facility] [address] [place] [phone] Geni Meza, HAVEN Essential hypertension (Primary Dx); SOB (shortness of breath) Social History Tobacco Use Types Packs/Day Years [...] have Coronavirus / COVID-19? No / Unsure 04/18/2021 2:16 PM EDT documented as of this encounter Plan of Treatment Upcoming Encounters Date Type Department Care Team (Late st Contact Info) Description 08/16/2025 11:30 AM EDT Office Visit [facility] Department of [facility] [address] [address] Jessenia Dorsey, PROPERTY CUSTODIAN-ROULETTE DEALER [address] [address] 08/17/2025 1:00 PM EDT Infusion [facility] - Medical Oncology [address] [place] [address] 02/26/2026 1:00 PM EDT Office Visit [facility] [address] [place] [address] [place] [address] [address] Krishna Kramer MD [address] [place] [address] documented as of this encounter Results * (ABNORMAL) Basic Metabolic Panel (05/02/2021 11:42 AM EDT) Sodium 141 134 - 146 mmol/L 05/02/2021 3:44 PM EDT [facility] Potassium, Bld 4.9 3.5 - 5.0 mmol/L 05/02/2021 3:44 PM EDT [facility] Chloride 106 98 - 109 mmol/L 05/02/2021 3:44 PM EDT [facility] CO2 27 22 - 32 mmol/L 05/02/2021 3:44 PM EDT [facility] Anion gap 8 5 - 15 mmol/L 05/02/2021 3:44 PM EDT [facility] BUN 29(H) 5 - 27 mg/dL 05/02/2021 3:44 PM EDT [facility] Creatinine 1.18(H) 0.40 - 1.00 mg/dL 05/02/2021 3:44 PM EDT [facility] Comment:METHOD TRACEABLE TO IDMS STANDARD Glucose 98 65 - 99 mg/dL 05/02/2021 3:44 PM EDT [facility] Calcium 9.5 8.5 - 10.5 mg/dL 05/02/2021 3:44 PM EDT [facility] GFR MDRD Non Af Amer 45(L) >59 ml/min/1.7 3sq.m 05/02/2021 3:44 PM EDT [facility] GFR MDRD Af Amer 54(L) >59 ml/min/1.7 3sq.m 05/02/2021 3:44 PM EDT [facility] Serum / Unknown 05/02/2021 1 1:42 AM EDT 05/02/2021 11:43 AM EDT us Archie Delvalle MD LAB BLOOD ORDERABLES Fin al Result Performing Organization Address City/State/[facility] Co de Phone Number [employer] [facility] [address] [facility], [address] [place] [address] documented in this encounter Visit Diagnoses Diagnosis Essential hypertension- Primary Unspecified essential hypertension SOB (shortness of breath) Shortness of breath documented in this encounter Additional Health Concerns Infection Onset Date Last Indicated Resolved Time COVID-19 Rule-Out 11/01/2021 11/01/2021 11/02/2021 12:13 PM EST COVID-19 Rule-Out 03/02/2023 03/02/2023 03/02/2023 3:25 AM EDT Assessment Noted Time PHQ-9 Depression Total Score: 0 03/31/20 21 2:49 PM EDT documented as of this encounter Care Teams Professor Of Practice Relationship Specialty Start Date End Date Bia Cao MD PCP - General Family Medicine 02/05/23 documented as of this encounter
--- OUTSIDE RECORDS SUMMARY | 2025-08-06 08:59 | XMS_ITS | Encounter Summary ---
Author Organization [facility] Address [id number] [address] [place] [address] Care Team Providers Care Dye Machine Tender Name Role Phone Bia Cao MD Primary Care Provider [phone] Reason for Visit * Reason Onset Date Comments Med Refill 09/24/2021 Med Refill 10/08/2021 Encounter Details Date Type Department Care Team (Late st Contact Info) Description 09/24/2021 Refill [facility] [address] [facility] [address] [place] [address] Eli Argueta CMA Occipital neuralgia of right side; Trapezius muscle spasm; Nocturnal muscle spasm Social History Tobacco Use Types [...] Office Visit [facility], A Department of [facility] [address] [facility] [address] [place] [address] Jessenia Dorsey, DIRECTOR OF BLOOD-ELECTRONIC INTEGRATED SYSTEMS MECHANIC [address] [facility] [address] [place] [address] 08/17/2025 1:00 PM EDT Infusion Meggan Hunter [facility] - Medical Oncology [address] [place] [phone] 02/26/2026 1:00 PM EDT Office Visit [facility] [address] [place] [address] [place] [address] Krishna Kramer MD [address] [place] [address] documented as of this encounter Visit Diagnoses Diagnosis Occipital neuralgia of right side Trapezius muscle spasm Nocturnal muscle spasm Spasm of muscle documented in this encounter Additional Health Concerns Infection Onset Date Last Indicated Resolved Time COVID-19 Rule-Out 11/01/2021 11/01/2021 11/02/2021 12:13 PM EST COVID-19 Rule-Out 03/02/2023 03/02/2023 03/02/2023 3:25 AM EDT Assessment Noted Time PHQ-9 Depression Total Score: 0 07/01/20 11:00 AM EDT documented as of this encounter Care Teams Dye Machine Tender Relationship Specialty Start Date End Date Bia Cao MD PCP - General Family Medicine 02/05/23 documented as of this encounter
--- OUTSIDE RECORDS SUMMARY | 2025-08-06 08:59 | XMS_ITS | Encounter Summary ---
Author Organization [facility] Address [address] [place] [address] Care Team Providers Care Hr Administrator Name Role Phone Bia Cao MD Primary Care Provider [phone] Bia Cao MD Unavailable Encounter Details Date Type Department Care Team (Late Contact Info) Description 07/10/2023 [facility] [address] [facility] [place] [address] Bia Cao MD 14[address] [facility] [address] [place], [place] [phone] Social History Tobacco Use Types Packs/Day Years [...] Description 11/07/2025 1:40 PM EST [facility] [address] [facility] [address] Bia Cao MD [address] [facility] [place] [address] documented as of this encounter Procedures Procedure Name Priority Date/Time Associated Diagnosis Comments X RAY : HIP, RIGHT Routine 07/07/2023 9:18 AM EDT documented in this encounter Results * X RAY : HIP, RIGHT (07/07/2023 9:18 AM EDT) Anatomical Region Laterality Modality Radiographic Zaira ging Bai Cao MD IMG XR PROCEDURES Final Result documented in this encounter Visit Diagnoses Not on filedocumented in this encounter Additional Health Concerns Assessment Noted Time PHQ-9 Depression Total Score: 6 06/04/20 3:00 PM EDT documented as of this encounter Care Teams Hr Administrator Relationship Specialty Start Date End Date Bia Cao MD 14[address] [place], [place] [phone] PCP - General Family Medicine 04/29/23 Bia Cao MD [address] [place] [address] PCP - [employer] 11/22/21 documented as of this encounter
--- OUTSIDE RECORDS SUMMARY | 2025-08-06 08:59 | XMS_ITS | Encounter Summary ---
Author Organization [facility] tem Address [id number] [address] [place] [address] Care Team Providers Care Slinger Sequins Name Role Phone Bia Cao MD Primary Care Provider [phone] Reason for Visit * Reason Onset Date Comments Med Refill 03/15/2019 Med Refill 03/16/2019 Encounter Details Date Type Department Care Team (Late Contact Info) Description 03/15/2019 Refill [facility] [address] [facility] [address] [place] [address] Yordan Crowley MA Migraine without aura and without status migrainosus, not intractable (Primary Dx) Social History Tobacco Use Types Packs/Day Years Used Date Smoking Tobacco: Never Smokeless Tobacco: Never Alcohol Use Standard Drinks/Week Comments No 0 (1 standard drink = 0.6 oz pur e alcohol) PHQ-2 Answer Date Recorded PHQ-2 Score 0 12/12/2018 Childcare Answer Date Recorded Childcare Unknown 02/15/2019 Employment Answer Date Recorded Employment Unknown 02/15/2019 Comments No Sex and Gender Information Value [...] Office Visit [facility], A Department of [address] [place] [address] Jessenia Dorsey, TINNING EQUIPMENT TENDER-CHILD MONITOR [address] [facility] [address] [place] [phone] 08/17/2025 1:00 PM EDT Infusion Meggan [facility] [place] - Medical Oncology [address] [place] [address] 02/26/2026 1:00 PM EDT Office Visit [facility] [address] [place] [address] [place] [address] [address] [place] [address] Krishna Kramer MD [facility] [place] [address] documented as of this encounter Visit Diagnoses Diagnosis Migraine without aura and without status migrainosus, not intractable- Primary documented in this encounter Additional Health Concerns Infection Onset Date Last Indicated Resolved Time COVID-19 Rule-Out 11/01/2021 11/01/2021 11/02/2021 12:13 PM EST COVID-19 Rule-Out 03/02/2023 03/02/2023 03/02/2023 3:25 AM EDT Assessment Noted Time PHQ-9 Depression Total Score: 0 03/02/20 19 11:00 AM EDT documented as of this encounter Care Teams Slinger Sequins Relationship Specialty Start Date End Date Bia Cao MD PCP - General Family Medicine 02/05/23 documented as of this encounter
--- OUTSIDE RECORDS SUMMARY | 2025-08-06 08:59 | XMS_ITS | Encounter Summary ---
Author Organization [facility] Address [address] [place] [address] Care Team Providers Care Press Machine Feeder Name Role Phone Bia Cao MD Primary Care Provider [phone] Bia Cao MD Unavailable Encounter Details Date Type Department Care Team (Late Contact Info) Description 07/20/2023 Abstract CELE Nicole [facility] [address] [facility] [place] [address] Bia Cao MD [address] [facility] [place] [address] Social History Tobacco Use Types [...] 1:40 PM EST Office Visit CELE Nicole [facility] [address] [facility] [place] [address] Bia Cao MD [address] [facility] [place] [address] documented as of this encounter Visit Diagnoses Not on filedocumented in this encounter Additional Health Concerns Assessment Noted Time PHQ-9 Depression Total Score: 6 06/04/20 23 3:00 PM EDT documented as of this encounter Care Teams Press Machine Feeder Relationship Specialty Start Date End Date Bia Cao MD 14[address] [place] [address] PCP - General Family Medicine 04/29/23 Bia Cao MD [address] [place] [address] PCP - Aetyu 11/22/21 documented as of this encounter
--- OUTSIDE RECORDS SUMMARY | 2025-08-06 08:59 | XMS_ITS | Encounter Summary ---
Author Organization [facility] Address [id number] [address] [place] [address] Care Team Providers Care Disc Pad Plate Filler Name Role Phone Bia Cao MD Primary Care Provider [phone] Encounter Details Date Type Department Care Team (Late st Contact Info) Description 03/02/2024 Orders Only [facility] [address] [place] [address] [place] [address] Bia Cao MD [address] [place] [address] Social History Tobacco Use Types Packs/Day Years Used Date Smoking Tobacco: Never Passive Smoke Exposure: Past Smokeless Tobacco: Never Alcohol Use Standard Drinks/Week Comments No 0 (1 standard drink = 0.6 oz pur e alcohol) PHQ-2 Answer Date Recorded Total Score 0 01/07/2024 Childcare Answer Date Recorded Childcare Unknown 04/26/2019 Employment Answer Date Recorded Employment Unknown 04/26/2019 Hunger Screening Answer Date Recorded Within the past 12 months we worried whether our food would run out before we got money to buy more. Never True 01/07/2024 Within the past 12 months th e food we bought just didn't last and we didn't have money to get more. Never True 01/07/2024 Purpose - Life Answer Date Recorded Purpose [...] Office Visit [facility], A Department of [facility] [address] [facility] [address] [place] [address] Jessenia Dorsey, RN BURN-CENTRIFUGAL CASTING MACHINE TENDER [address] [facility] [address] [place] [address] 08/17/2025 1:00 PM EDT Infusion Meggan Hunter [facility] - Medical Oncology [address] [place] [address] 02/26/2026 1:00 PM EDT Office Visit [facility] [address] [place] [address] [place] [address] Krishna Kramer MD [address] [place] [address] documented as of this encounter Goals Goal Patient Goal Type Associated Problems Recent Progress Patient-Stated? Author safe discharge to home General Yes Ginna Jean Baptiste, RN Note: Evaluation of progress towards goal: safe transition from hospital to home with support of her friends/neighbors documented as of this encounter Procedures Procedure Name Priority Date/Time Associated Diagnosis Comments MR BRAIN IAC W WO CONT Routine 03/02/2024 4:09 PM EDT documented in this encounter Results * MR brain IAC with and without contrast (03/02/2024 4:09 PM EDT) Anatomical Region Laterality Modality Neuro, Head, Head and Neck, Neuro [place] N/A Magnetic Resonance us Bia Cao MD IMG MRI ORDERABLES Final Result documented in this encounter Visit Diagnoses Not on filedocumented in this encounter Additional Health Concerns Assessment Noted Time PHQ-9 Depression Total Score: 0 02/16/20 24 10:24 AM EST documented as of this encounter Care Teams Disc Pad Plate Filler Relationship Specialty Start Date End Date Bia Cao MD PCP - General Family Medicine 02/05/23 documented as of this encounter
--- OUTSIDE RECORDS SUMMARY | 2025-08-06 09:00 | XMS_ITS | Encounter Summary ---
Author Organization [employer] [facility] tem Address [facility][id number] [address] [place] [address] Care Team Providers Care Auto Fleet Maintenance Manager Name Role Phone Bia Cao MD Primary Care Provider Reason for Visit * Reason Onset Date Comments Med Refill 11/07/2019 Encounter Details Date Type Department Care Team (Late st Contact Info) Description 11/07/2019 [facility] [address] [place] [address] Jessenia Nicole RN Med Refill Social History [...] encounter Miscellaneous Notes * Telephone Encounter - Jessenia Nicole RN - 11/07/2019 3:10 PM EST Pt called need refills for lipitor pt has not had lipids in the last year. Order placed for lipids and sent 1 month refill for lipitor.slm Jessenia Nicole RN 11/07/19 1515 documented in this encounter Plan of Treatment Upcoming Encounters Date Type Department Care Team (Late st Contact Info) Description 08/16/2025 11:30 AM EDT Office Visit [facility], [facility] Department of [facility] 6[address] [facility] [address] [place] [address] Jessenia Dorsey HEAD INSPECTOR-COST MANAGER [address] [facility] [address] [place] [address] 08/17/2025 1:00 PM EDT [facility] [address] [place] [address] 02/26/2026 1:00 PM EDT Office Visit [facility] [address] [place] [address] [place] [address] Krishna Kramer MD [address] [place] [address] documented as of this encounter Results * AST (11/10/2019 8:52 AM EST) AST 21 0 - 41 U/L 11/10/2019 3:16 PM EST [facility] Serum / Unknown 11/10/2019 8 :52 AM EST 11/10/2019 8:53 AM EST us Leida High HEAD INSPECTOR-COST MANAGER LAB BLOOD ORDERABLES Final Result [facility] [address] [facility], [address] [place] [address] * ALT (11/10/2019 8:52 AM EST) ALT 19 0 - 31 U/L 11/10/2019 3:16 PM EST [facility] Serum / Unknown 11/10/2019 8 :52 AM EST 11/10/2019 8:53 AM EST Leida High HEAD INSPECTOR-COST MANAGER LAB BLOOD ORDERABLES Final Result [facility] [address] [facility], [address] [place] [address] * (ABNORMAL) Lipid panel (11/10/2019 8:52 AM EST) Cholesterol 178 150 - 200 mg/dL 11/10/2019 3:16 PM EST [facility] Triglycerides 433(H) 27 - 150 mg/dL 11/10/2019 3:16 PM EST [facility] HDL Cholesterol 30(L) >39 mg/dL 11/10/2019 3:16 PM EST [facility] Comment: HDL <40 mg/dL - High Risk HDL > or = 40mg/dL- Desirable HDL >60 mg/dL - Negative Risk VLDL 87(H) 0 - 30 mg/dL 11/10/2019 3:16 PM EST [facility] LDL (calc) RESULT NOT REPORTED DUE TO HIGH TRIGLYCERIDE <130 mg/dL 11/10/2019 3:16 PM EST [facility] Cholesterol:HDL Ratio 5.9(H) 1.0 - 5.0 11/10/2019 3:16 PM EST [facility] Serum / Unknown 11/10/2019 8 :52 AM EST 11/10/2019 8:53 AM EST Leida High HEAD INSPECTOR-COST MANAGER LAB BLOOD ORDERABLES Edited Result - Final [facility] [address] [facility], [address] [place] [address] documented in this encounter Visit Diagnoses Diagnosis Other hyperlipidemia- Primary documented in this encounter Additional Health Concerns Infection Onset Date Last Indicated Resolved Time COVID-19 Rule-Out 11/01/2021 11/01/2021 11/02/2021 12:13 PM EST COVID-19 Rule-Out 03/02/2023 03/02/2023 03/02/2023 3:25 AM EDT Assessment Noted Time PHQ-9 Depression Total Score: 0 07/25/20 19 1:00 PM EDT documented as of this encounter Care Teams Auto Fleet Maintenance Manager Relationship Specialty Start Date End Date Bia Cao MD PCP - General Family Medicine 02/05/23 documented as of this encounter
--- OUTSIDE RECORDS SUMMARY | 2025-08-06 09:00 | XMS_ITS | Encounter Summary ---
Author Organization [facility] Address [address] [place] [address] Care Team Providers Care Cook Ship Name Role Phone Bia Cao MD Primary Care Provider [phone] Bia Cao MD Unavailable Encounter Details Date Type Department Care Team (Late Contact Info) Description 04/26/2023 Abstract CELE [facility] Family Medicine [address] [facility] [place] [address] Bia Cao MD [address] [facility] [address] [place], [place] [phone] Social History Tobacco Use Types Packs/Day Years [...] Office Visit [facility] [address] [facility] [address] [place] [place] [address] Bia Cao MD [address] [facility] [address] [place], [place] [phone] documented as of this encounter Visit Diagnoses Not on filedocumented in this encounter Care Teams Cook Ship Relationship Specialty Start Date End Date Bia Cao MD [address] [facility] [address] [place], [place] [phone] PCP - General Family Medicine 04/29/23 Bia Cao MD [address] [place] [address] PCP - [employer] 11/22/21 documented as of this encounter
--- OUTSIDE RECORDS SUMMARY | 2025-08-06 09:00 | XMS_ITS | Encounter Summary ---
Author Organization [facility] Address [address] [place] [address] Care Team Providers Care Tucking Machine Operator Name Role Phone Bia Cao MD Primary Care Provider [phone] Bia Cao MD Unavailable Encounter Details Date Type Department Care Team (Late st Contact Info) Description 04/12/2023 Clinisync Result Encounter NOM External Department Unsolicited Bia Cao MD [address] [facility] [place] [address] Social History Tobacco Use Types [...] EST Office Visit CE[facility] Family [facility] [address] [facility] [place] [address] Bia Cao MD [address] [facility] [address] [place], [place] [address] documented as of this encounter Procedures Procedure [...] on filedocumented in this encounter Care Teams Tucking Machine Operator Relationship Specialty Start Date End Date Bia Cao MD [address] [facility] [place] [address] PCP - General Family Medicine 04/29/23 Bia Cao MD [address] [address] PCP - [employer] 11/22/21 documented as of this encounter
--- OUTSIDE RECORDS SUMMARY | 2025-08-06 09:00 | XMS_ITS | Encounter Summary ---
Author Organization [facility] Address [address] [place] [address] Care Team Providers Care Aquaculture And Fisheries Professor Name Role Phone Bia Cao MD Primary Care Provider Bia Cao MD Unavailable Encounter Details Date Type Department Care Team (Late Contact Info) Description 05/11/2023 Abstract [facility] [address] [facility] [place] [address] Bia Cao MD [address] [facility] [place] [address] Social History Tobacco Use Types [...] 1:40 PM EST Office Visit [facility] [address] [facility] [place] [address] Bia Cao MD [address] [facility] [place] [address] documented as of this encounter Visit Diagnoses Not on filedocumented in this encounter Care Teams Aquaculture And Fisheries Professor Relationship Specialty Start Date End Date Bia Cao MD [address] [facility] [place] [address] PCP - General Family Medicine 04/29/23 Bia Cao MD [address] [place] [address] PCP - [employer] 11/22/21 documented as of this encounter
--- OUTSIDE RECORDS SUMMARY | 2025-08-06 09:00 | XMS_ITS | Encounter Summary ---
Author Organization [facility] Address [address] [place] [address] Care Team Providers Care Parole Hearing Officer Name Role Phone Bia Cao MD Primary Care Provider [phone] Bia Cao MD Unavailable Reason for Visit * Reason Comments Med Refill Encounter Details Date Type Department Care Team (Late st Contact Info) Description 04/22/2023 Refill [facility] Medicine [address] [address] Bia Cao MD [address] [facility] [place] [address] Hypertension, unspecified type (Primary Dx) Social History Tobacco Use Types [...] 1:40 PM EST Office Visit [facility] Medicine [address] [facility] [place] [address] Bia Cao MD [address] [place], [place] [id number] documented as of this encounter Visit Diagnoses Diagnosis Hypertension, unspecified type- Primary documented in this encounter Care Teams Parole Hearing Officer Relationship Specialty Start Date End Date Bia Cao MD [address] [place] [address] PCP - General Family Medicine 04/29/23 Bia Cao MD [address] [place], [place] [id number] PCP - [employer] 11/22/21 documented as of this encounter
--- OUTSIDE RECORDS SUMMARY | 2025-08-06 09:05 | XMS_ITS | CCD ---
Author Organization [facility] Care Team Providers Care Acoustics Teacher Name Role Phone LENNY PEDRAZA Unavailable Unavailable ADUREY HRON Unavailable Unavailable AUDREY HORN Unavailable Unavailable LENNY PEDRAZA Unavailable Unavailable NASH, BIA Anny Primary Care Unavailable NASH, BIA Mccormick Primary Care Unavailable Jacob Viveros Unavailable Unavailable Nash GARCIA, Bia Mccormick Primary Care Provider (Hist), No Pcp Primary Care Provider Unavailkwasi e Oswaldo GARCIA, Corey Castillo Unavailable [phone] Oswaldo GARCIA, Corey Castillo Unavailable ROSE VELASQUEZ Attending Unavailable HOOVERMANDI Referring Unavailable HOOVERMANDI Attending Unavailable HOOVERMANDI RUIZ Referring Unavailable Jacob Viveros Unavailable Unavailable Nash GARCIA, Bia Mccormick Primary Care Provider Nash GARCIA, Bia Anny Unavailable Bia Cao MD Primary Care Provider Bia Cao MD Primary Care Provider JOHN JOHNSON Attending Unavailable NASH, BIA F [...] Care Unavailable NASH, BIA F Attending Unavailable KATERIN ALVARADO Attending Unavailable TAE HARDY Referring Unavailable NASH, BIA F Attending Unavailable NASH, BIA F Attending Unavailable NASH, BIA F Attending Unavailable NASH, BIA F Referring Unavailable NASH, BIA F Attending Unavailable NASH, BIA F Attending Unavailable NASH, BIA F Attending Unavailable NASH, BIA F Attending Unavailable SANTO CHRISTIANSON Attending Unavailable NASH, BIA F Attending Unavailable Giedraitis MD, Andrius Vytautdayana Attending Unavailable Giedraitis MD, Andrius Vytautas Attending Unavailable Giedraitis MD, Andrius Vytautas Attending Unavailable Giedraitis MD, Andrius Vytautas Attending Unavailable Giedraitis MD, Andrius Vytautas Attending Unavailable Giedraitis MD, Andrius Vytautas Attending Unavailable Giedraitis MD, Andrius Vytautas Attending Unavailable Giedraitis MD, Andrius Vytautas Attending Unavailable GIEDRAITIS V, ANDRIUS Referring Unavailabl e NASH, BIA F Primary Care Unavailable NASH, BIA F Primary Care Unavailable TISHA GALLAGHER Attending Unavailable NASH, BIA F Referring Unavailable NASH, BIA F Primary Care Unavailable NASH, BIA F Referring Unavailable NASH, BIA F Primary Care Unavailable NASH, BIA F Primary Care Unavailable GUNDABOLU, JOHN Referring Unavailable NASH, BIA F Referring Unavailable NASH, BIA F Primary Care Unavailable NASH, BIA F Referring Unavailable NASH, BIA F Primary Care Unavailable NASH, BIA F Primary Care Unavailable GUNDABOLU, JOHN Referring Unavailable NASH, BIA F Primary Care Unavailable GUNDABOLU, JOHN Referring Unavailable NASH, BIA F Referring Unavailable NASH, BIA F Primary Care Unavailable NASH, BIA F Primary Care Unavailable GUNDABOLU, JOHN Referring Unavailable NASH, BIA F Referring Unavailable NASH, BIA F Primary Care Unavailable NASH, BIA F Primary Care Unavailable GUNDABOLU, JOHN Referring Unavailable NASH, BIA F Referring Unavailable NASH, BIA F Primary Care Unavailable NASH, BIA F Primary Care Unavailable GUNDABOLU, JOHN Referring Unavailable NASH, BIA F Referring Unavailable NASH, BIA F Primary Care Unavailable NASH, BIA F Primary Care Unavailable GUNDABODANIEL AGUIRRER Referring Unavailable BIA CAO Referring Unavailable BIA CAO Primary Care Unavailable BIA CAO Primary Care Unavailable KEANU, JOHN Referring Unavailable IBA CAO Referring Unavailable BIA CAO Primary Care Unavailable Allergies Allergy Classification Reported Allergen(s) Allergy Type Date of Onset Reaction(s) Facility Amoxicillin / Clavulanate (1 source) Amoxicillin / Clavulanate Drug Allergy 08-14-20 11 Rash [facility] Aspartame (1 source) Aspartame Drug Allergy 02-13-20 17 Other: See Comments [facility] Clavulanate (1 source) Clavulanate Drug Allergy 02-13-20 17 [facility] egg white (chicken) allergenic extract (1 source) egg white (chicken) allergenic extract Drug Allergy 08-14-20 11 Swelling [facility] Lincomycin (1 source) Lincomycin Drug Allergy 11-04-20 16 [facility] NSAIDs (1 source) oxaprozin Drug Allergy 11-04-20 16 [facility] Penicillins (antibiotic) (1 source) Penicillins Drug Allergy 11-04-20 16 [facility] (20 sources) Aspartame; Translations: [ASPARTAME] Drug Allergy 02-13-20 17 Unknown [facility] (20 sources) Clavulanate; Translations: [CLAVULANIC ACID] Drug Allergy 02-13-20 17 Rash [facility] (20 sources) Indomethacin; Translations: [INDOMETHACIN] Drug Allergy 05-02-20 21 Unknown, Hypotension [facility] (20 sources) Influenza Vaccines Drug Allergy 06-04-20 23 Rash [facility] (20 sources) Lincomycin; Translations: [LINCOMYCIN] Drug Allergy 08-14-20 11 Anaphylaxis, Rash [facility] (20 sources) Lincomycin Drug Allergy 12-01-19 22 Unknown [facility] (20 sources) Penicillins; Translations: [PENICILLINS] Drug Allergy 11-04-20 16 [facility] (20 sources) Sulfamethoxazole / Trimethoprim; Translations: [SULFAMETHOXAZOLE-T RIMETHOPRIM] Drug Allergy 10-22-20 23 Hives [facility] (20 sources) Sulfonamides (Antibiotic) Drug Intolerance 11-11-20 22 [facility] ([facility] sources) Amoxicillin-Pot Clavulanate; Translations: [AMOXICILLIN-POT CLAVULANATE] Drug Allergy 08-14-20 11 Rash [facility] Work Phone: (20 sources) Clemizole; Translations: [CLEMIZOLE] Propensity to adverse reactions 02-13-20 17 Rash [facility] (6 sources) Eggs Or Egg-Derived Products Drug Allergy 08-14-20 11 Swelling, Unknown [facility] (20 sources) Other; Translations: [OTHER] Propensity to adverse reactions 02-13-20 17 Swelling, Other (See Comments) [facility] Work Phone: (20 sources) Poultry Meal Propensity to adverse reactions 03-02-20 23 [facility] (20 sources) Wound Dressing Adhesive Drug Allergy 06-04-20 23 Rash [facility] (20 sources) Adhesive agent; Translations: [ADHESIVE] Drug Allergy 11-04-20 16 Other: See Comments [facility] Work Phone: (20 sources) Aspartame Drug Allergy 02-13-20 17 Other: See Comments, Other (See Comments) [facility] (20 sources) Clindamycin; Translations: [LINCOSAMIDES] Drug Allergy 02-13-20 17 Anaphylaxis [facility] (6 sources) egg white (chicken) allergenic extract; Translations: [EGG WHITE] Drug Allergy 08-14-20 11 Swelling [facility] (20 sources) oxaprozin; Translations: [OXAPROZIN] Drug Allergy 11-04-20 16 [facility] (11 sources) Penicillins Drug Allergy 11-04-20 16 Rash [facility] (20 sources) Influenza Virus Vaccines; Translations: [INFLUENZA VIRUS VACCINES] Drug Allergy 02-13-20 17 Swelling [facility] (20 sources) Egg-Derived Products Drug Allergy 08-14-20 11 Swelling, Unknown [facility] (20 sources) egg shell membrane; Translations: [EGGSHELL MEMBRANE] Propensity to adverse reactions to drug 11-04-20 16 [facility] (9 sources) Penicillins Propensity to adverse reactions to drug 11-04-20 16 Rash [facility] (12 sources) [id number] Antimigraine Agents; Translations: [ZAHALURW-2-UT0 ANTIMIGRAINE AGENTS] Propensity to adverse reactions to drug 02-20-20 25 [facility] (3 sources) chicken allergenic extract; Translations: [POULTRY] Drug Allergy 03-02-20 23 [facility] (3 sources) Sulfonamides (Antibiotic); Translations: [SULFA (SULFONAMIDE ANTIBIOTICS)] Propensity to adverse reactions to drug (disorder) 11-11-20 22 [facility] (1 source) Adhesive agent Propensity to adverse reactions to drug 11-04-20 16 [facility] Current Medications Medication Drug Class(es) Dates [...] mg / caffeine 65 mg oral tablet (19 sources) Platelet Aggregation Inhibitor, Nonsteroidal Anti-inflammatory Drug, Central Nervous System Stimulant, Methylxanthine take 1 tablet by mouth every six hours as needed for headache gcnelos-zplmxydsiouow-efhpemzd (EXCEDRIN MIGRAINE) 250-250-65 mg per tablet Take 1 tablet by mouth every 6 (six) hours as needed for headaches. Active acetaminophen 325 mg / dichloralphenazone 100 mg / isometheptene 65 mg oral capsule (6 sources) take 1 capsule by mouth every six hours as needed acetaminophen-dichloralphenazone -isometheptene (MIDRIN) 65-100-325 mg per capsule 1 capsule four times daily as needed. Active [id number] actuat albuterol 0.09 mg/actuat metered dose inhaler (20 sources) beta2-Adrenergic Agonist St ar t: 23 En d: 25 take 2 puff(s) by inhalation every four hours for wheezing albuterol HFA 90 mcg/act inhaler Indications: Mild intermittent asthma without complication (HCC) Inhale 2 puffs every 4 (four) hours if needed for shortness of breath or wheezing 18 g 3 07/10/2025 08/09/2025 Active Start: 09-30-2017 PROAIR HFA 90 mcg/actuation [...] tablet 07/11/2024 07/18/2024 Active CRANBERRY CONCENTRATE PO (9 sources) take 1 tablet by mouth once [...] 05/10/2024 Active L.acidoph/B.animalis/B.longu m (FLORAJEN DIGESTION ORAL) (19 sources) take 1 tablet by mouth in the morning L.acidoph/B.animalis/B.longum (FLORAJEN DIGESTION ORAL) Take 1 tablet by mouth in the morning. Active lactobacillus acidophilus 16 mg oral capsule (20 sources) Lactobacillus (F raven Women) capsule as directed Orally Active levothyroxine sodium 0.15 mg oral tablet (20 sources) l- yrox ine Star t: 01-11 End: 03-23 25 take 1 tablet by mouth in [...] mirabegron 50 mg extended release oral tablet (17 sources) beta3-Adrenergic Agonist Start: 12-19-19 25 take 1 tablet by mouth every twenty-four hours in the morning mirabegron (MYRBETRIQ) 50 mg tablet extended release 24 hr Take 1 tablet (50 mg total) by mouth in the morning. 30 tablet 12/19/2024 Active mirtazapine 15 mg oral tablet (20 sources) Start: 12-26-19 End: 06-24-20 take 1 tablet by mouth at bedtime mirtazapine (Remeron) 15 MG tablet Indications: Primary insomnia , Major depressive disorder, single episode, in full remission TAKE 1 TABLET BY MOUTH AT BEDTIME 90 tablet 06/19/2025 Active multivitamin tablet (6 sources) take 1 [...] capsule (20 sources) Proton Pump Inhibitor Start: 07-25-2025 take 1 capsule by mouth in the morning omeprazole (PriLOSEC) [address] capsule Indications: Gastroesophageal reflux disease without esophagitis Take 1 capsule by mouth in the morning 100 capsule 11 07/25/2025 Active Start: 11-29-2023 End: 03-26-2028 take 1 capsule by mouth in the morning omeprazole (PriLOSEC) [address] capsule Indications: Gastroesophageal reflux disease without esophagitis Take 1 capsule (40 mg) by mouth in the morning. 100 capsule 11 12/12/2024 07/25/2025 Discontinued Start: 12-02-2016 omeprazole ([place] ILOSEC) 20 mg capsule 20 mg once [...] by mouth. 11/21/2020 Active polyethylene glycol 3350 [id number] mg powder for oral solution (3 sources) [...] mouth. 0 Active therapeutic multivitamin (THERAGRAN) tablet (19 sources) take 1 tablet by mouth once [...] End: 02-12-2025 take 1 tablet by mouth every twenty-four hours as needed Ubrelvy 100 MG tablet Take 1 tablet by mouth Daily as needed (migraine) 02/26/2025 Active verapamil hydrochloride 120 mg extended release [...] 07/14/2024 07/21/2024 Active romosozumab (20 sources) Start: 07-20-2025 End: 07-20-2025 210 mg, subcutaneous, Once, On Wed07/20/25 at 1315, For 1 dose, Bring to room temp for at least 30min in original container. Give sub-Q into abdomen, thigh, or outer area of upper arm. Give two consecutive SubQ injections of 105 mg each for a total dose of 210 mg. Rotate injection sites. Start: 06-13-2025 End: 06-13-2025 210 mg, subcutaneous, [...] [Tinea unguium] 10-30-2024 Episodic Nausea and vomiting (19 sources) Postoperative nausea and vomiting; Translations: [Nausea with vomiting, unspecified] 06-24-2021 Episodic Nutritional deficiencies (3 sources) Vitamin D deficiency; Translations: [Vitamin D deficiency, unspecified] Onset: 5 12-06-2024 Chronic Osteoarthritis (20 sources) Osteoarthritis of right knee joint; Translations: [Unilateral primary osteoarthritis, right knee] Onset: 1 06-04-2023 Chronic Osteoporosis (20 sources) Senile osteoporosis; Translations: [Age-related osteoporosis without current pathological fracture] Onset: 0 Resolved: 3 06-04-2023 Chronic Other and ill-defined heart disease (20 sources) Diastolic dysfunction; Translations: [Other ill-defined heart diseases] Onset: 1 05-23-2021 Chronic Other and ill-defined heart disease (19 sources) Left ventricular hypertrophy; Translations: [Cardiomegaly] Onset: [...] Chronic Other lower respiratory disease (2 sources) Interstitial lung disease; Translations: [Interstitial pulmonary disease, unspecified] 07-11-2025 Chronic Other lower respiratory disease (2 sources) Cough; Translations: [Acute cough] 01-15-2025 Episodic Other nervous system disorders (1 source) Mass lesion of brain; Translations: [Other specified disorders of brain] 03-28-2024 Chronic Other nervous system disorders (20 sources) Lesion of brain; Translations: [Disorder of brain, unspecified] Onset: 4 02-15-2024 Chronic Other nervous system disorders (19 sources) Chronic pain syndrome; Translations: [Chronic pain syndrome] Onset: 8 2018 Chronic Other nervous system disorders (19 sources) Carpal tunnel syndrome; Translations: [Carpal tunnel [...] 01-15-2025 Episodic Prolapse of female genital organs (16 sources) Midline cystocele; Translations: [Cystocele, midline] Onset: [...] te Episodic/Chronic Acute and unspecified renal failure (19 sources) Acute renal failure syndrome; Translations: [Acute kidney failure, unspecified] Onset: 03-02-2023 03-02-2023 Episodic Acute cerebrovascular disease (19 sources) Hematoma of subdural space of neuraxis; [...] 12-06-2023 Resolved: 02-12-2025 12-06-2023 Other circulatory disease (19 sources) Low blood pressure; Translations: [Hypotension, unspecified] [...] 08-14-2011 05-04-2024 Episodic Other connective tissue disease (19 sources) Muscle spasm of cervical muscle of neck; Translations: [Other muscle spasm] Onset: 05-05-2019 05-05-2019 Episodic Other connective tissue disease (19 sources) Nocturnal muscle spasm ; Translations: [Other [...] 02-15-2024 02-15-2024 Episodic Other lower respiratory disease (19 sources) Dyspnea; Translations: [Shortness of breath] Onset: 11-06-2019 11-06-2019 Episodic Other nervous system disorders (20 sources) Impairment of balance; Translations: [Other abnormalities of gait and mobility] Onset: 06-12-2019 05-04-2024 Episodic Other non-traumatic joint disorders (20 sources) Hip pain; Translations: [Pain in right hip] Onset: 10-13-2017 11-03-2017 Episodic Other upper respiratory disease (19 sources) Chronic hoarseness; Translations: [Dysphonia] Onset: 07-24-2020 07-24-2020 Episodic Residual codes; unclassified (16 sources) Family history of malignant neoplasm of breast in first degree relative; Translations: [Family history of malignant neoplasm of breast] Onset: 01-23-2025 01-23-2025 Episodic Residual codes; unclassified (16 sources) Family history of malignant neoplasm of breast at under age 50 in second degree female relative; Translations: [Family history of malignant neoplasm of breast] Onset: 01-23-2025 01-23-2025 Episodic Residual codes; unclassified (16 sources) Family history of malignant neoplasm of [...] Results Test Name Value Interpretation Reference Range [facility] CALCIUMon 07-16-2025 Calcium [Mass/Vol] 9.4 mg/dL Normal 8.5-10.5 [facility] Comment on above: Performed By: #### C A ####[facility] ([facility])[address] [address] VIR CALCIUMon 06-12-2025 Calcium [Mass/Vol] 9.5 mg/dL Normal 8.5-10.5 [facility] Comment on above: Performed By: #### C A ####[facility] ([facility])[address], [place] [address] VIR CALCIUMon 05-15-2025 Calcium [Mass/Vol] 9.7 mg/dL Normal 8.5-10.5 [facility] [place] Comment on above: Performed By: #### C A ####[facility] ([facility])[address] [address] VIR CALCIUMon 04-13-2025 Calcium [Mass/Vol] 9.5 mg/dL Normal 8.5-10.5 [facility] [place] Comment on above: Performed By: #### C A ####[facility] ([facility])[address] [address] VIR CALCIUMon 03-19-2025 Calcium [Mass/Vol] 9.6 mg/dL Normal 8.5-10.5 [facility] Comment on above: Performed By: #### C A ####[facility] ([facility])[address] [address] VIR POCT Urinalysis Auto, W/O Mi croscopyon 02-27-2025 External Poct Urine Blood Negative [facility] External Poct Urine Glucose Negative [facility] External Poct Urine Ketones Negative [facility] External Poct Urine Leukocyte Esterase Negative [facility] External Poct Urine Nitrite Negative [facility] External Poct Urine Ph 5.5 [facility] External Poct Urine Protein 1+ [facility] CALCIUMon 02-14-2025 Calcium [Mass/Vol] 9.3 mg/dL Normal 8.5-10.5 [facility] Comment on above: Performed By: #### 1 [id number] #### [facility] ([id number]) [address] [place] [address] CT ABDOMEN PELVIS WO IV CONT RASTon [...] UA Negative Negative - 4(70) +++ mg/dL [facility] Blood, UA Positive Negative - 50 Darryl/mcL [facility] Clarity, UA Cloudy [facility] Color, UA Yellow [facility] Glucose, UA Negative Negative - 2000(110) ++++ mg/dL [facility] Interpretation and review of laboratory results Abnormal [facility] Ketones, UA Negative Negative - 160(16) ++++ mg/dL [facility] Leukocytes, UA 3+ Negative - 500+++ Obdulio/mcL [facility] Nitrite, UA Positive Negative - Positive [facility] pH, UA 5 5 - 9 [facility] Protein, UA 2+ Negative - 2000(20) ++++ mg/dL [facility] Spec Grav, UA 1.02 1 - 1.03 [facility] Urobilinogen, UA 1.0 0.2 - 12 mg/dL [facility] - Microbiology an d Antimicrobial susceptibilityon 01-15-2025 SARS-CoV-2 (COVID-19) RNA MICHAEL+probe Ql (Unsp spec) Negative [facility] No Panel Informationon 01-15 FLU A Positive [facility] FLU B Negative [facility] Interpretation and review of laboratory results Abnormal [facility] CALCIUMon 01-11-2025 Calcium [Mass/Vol] 9.8 mg/dL Normal 8.5-10.5 [facility] Comment on above: Performed By: #### 1 [id number] #### [facility] ([id number]) [address] [place] [address] Urinalysis macro (dipstick) panel (U)on 01-01-2025 Bilirubin, UA Negative Negative - 4(70) +++ mg/dL [facility] Blood, UA Positive Negative - 50 Darryl/mcL [facility] Clarity, UA Cloudy [facility] Color, UA Dark María [facility] Glucose, UA Negative Negative - 2000(110) ++++ mg/dL [facility] Interpretation and review of laboratory results Abnormal [facility] Ketones, UA Negative Negative - 160(16) ++++ mg/dL [facility] Leukocytes, UA 4+ Negative - 500+++ Obdulio/mcL [facility] Nitrite, UA Negative Negative - Positive [facility] pH, UA 5 5 - 9 [facility] Protein, UA 3+ Negative - 2000(20) ++++ mg/dL [facility] Spec Grav, UA 1.02 1 - 1.03 [facility] Urobilinogen, UA 0.2 0.2 - 12 mg/dL [facility] CT BRAIN WO CONTon CT BRAIN WO [...] Mark Keita MD on 12/23/2024 8:41 PM I, Dharmesh Mittal have personally reviewed the image(s) and agree with and/or edited the report Finalized by Dharmesh Mittal on 12/23/2024 8:53 PM Normal [facility] CT CERVICAL SPINE WO CONTon 12-23-2024 CT [...] Dharmesh Mittal on 12/23/2024 8:44 PM Normal [facility] CT KNEE RT WO CONTon 025 CT [...] Singh MD on 12/23/2024 9:54 PM Normal [facility] XR CHEST 1 VWon 12-23-2024 XR CHEST [...] Negrete MD on 12/23/2024 8:36 PM Normal [facility] XR HIP RT 2-3 VIEWS W OR [...] Dharmesh Mittal on 12/23/2024 8:41 PM Normal [facility] XR KNEE RT 3 VWSon XR KNEE [...] Dharmesh Mittal on 12/23/2024 8:56 PM Normal [facility] XR SHOULDER RT MIN 2 VWSon 0 [...] Negrete MD on 12/23/2024 8:31 PM Normal [facility] - Miscellaneous t estson 12-10-2024 Service comment (Unsp spec) [Interp] [facility] Comment on above: This urine was adolfo zed for the presence of WBC, RBC, bacteria, casts, and other formed elements. Only those elements seen were reported. No Panel Informationon 12-10 Performing Organization Information Site ID: QPT Name: [facility] Address: [address] [place] [address], [address] [place] [id number] Director: Angel Noble MD [facility] Urinalysis complete panel (U )on 12-10-2024 Appearance (U) TURBID Abnormal CLEAR [facility] Bacteria LM.HPF (Urine sed) [#/Area] MANY Abnormal NONE SEEN /HPF [facility] Bilirubin Ql (U) Negative NEGATIVE [facility] Color (U) YELLOW YELLOW [facility] Epithelial cells.squamous LM.HPF (Urine sed) [#/Area] NONE SEEN < OR = 5 /HPF [facility] Glucose Ql (U) Negative NEGATIVE [facility] Hemoglobin Ql (U) TRACE Abnormal NEGATIVE [facility] Hyaline casts (Urine sed) [#/Area] NONE SEEN NONE SEEN /LPF [facility] Interpretation and review of laboratory results Abnormal [facility] Ketones Ql (U) Negative NEGATIVE [facility] Leukocyte esterase Test strip Ql (U) 3+ Abnormal NEGATIVE [facility] Nitrite Ql (U) Negative NEGATIVE [facility] pH (U) 6.5 [pH] 5.0 - 8.0 [facility] Protein Ql (U) TRACE Abnormal NEGATIVE [facility] RBC LM.HPF (Urine sed) [#/Area] 0-2 < OR = 2 /HPF [facility] Specific gravity (U) [Rel density] 1.017 1.001 - 1.035 [facility] WBC LM.HPF (Urine sed) [#/Area] PACKED Abnormal < OR = 5 /HPF [facility] Urinalysis macro (dipstick) panel (U)on 12-08-2024 Bilirubin, UA Negative Negative - 4(70) +++ mg/dL [facility] Blood, UA Positive Negative - 50 Darryl/mcL [facility] Clarity, UA Cloudy [facility] Color, UA Yellow [facility] Glucose, UA Negative Negative - 1999(110) ++++ mg/dL [facility] Interpretation and review of laboratory results Abnormal [facility] Ketones, UA Negative Negative - 160(16) ++++ mg/dL [facility] Leukocytes, UA 4+ Negative - 500+++ Obdulio/mcL [facility] Nitrite, UA Negative Negative - Positive [facility] pH, UA 6 5 - 9 [facility] Protein, UA 2+ Negative - 1999(20) ++++ mg/dL [facility] Spec Grav, UA 1.01 1 - 1.03 [facility] Urobilinogen, UA 0.2 0.2 - 12 mg/dL [facility] XR SPINE LUMBAR 2 OR 3 [...] Mendoza MD on 11/28/2024 3:13 PM Normal [facility] ANGELA RUTH ([id number]) 1945 F Date Time Provider Department 10/04/24 ROSE VELASQUEZ [facility] During your visit today, we recorded the following information about you: Jessica Ashley 10/04/2024 3:20 PM Signed General Call Caller : Angela Contact Reason for Call : Did you speak with Dr. Hoover regarding her most recent appt? Patient requesting return call ? Yes Rose Velasquez APRN.WAITER/WAITRESS CAFETERIA 10/06/2024 10:09 AM Signed Voicemail left for Angela at [phone]. Call back number given. 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 My note was forward to Dr. Hoover for review. At this time we recommend follow up and new imaging in 1 year. Rose Velasquez, MSN, PRETZEL TWISTING MACHINE OPERATOR, WAITER/WAITRESS CAFETERIA Certified Nurse Practitioner Allergies As of Date: [...] Fully Assessed Reason for Visit: Patient Question [7157] Prescriptions as of 10/06/2024 - hydrALAZINE (APRESOLINE) [...] [M5*01/27/2018 Encounter Status:Closed by ROSE VELASQUEZ on 11/15/24 [facility] CNOVon 09-26-2024 CNOV Office Visit ([facility] ) ANGELA RUTH ([id number]) 1945 F Date Time Provider Department 09/26/24 1:45 PM ROSE VELASQUEZ [facility] During your visit today, we recorded the following information about you: Pulse Blood pressure Weight 91/minute 143/81 67 kg Rose Velasquez APRN.WAITER/WAITRESS CAFETERIA 09/26/2024 3:[address] [facility] NEURO-ONCOLOGY OUTPATIENT CLINIC [...] bedtime (Pat (more content not included)... Normal [facility] MR Brain WO and W contrast I Von 09-26-2024 IMPRESSION: Stable size of a RIGHT petrous ridge presumed meningioma compared to 03/02/2024. Warp [facility] Trans[facility] Date/Time: Sep 26 2024 2:10P Dictated by : MAUREEN PEARL MD This examination was interpreted and the report reviewed and electronically signed by: MAUREEN PEARL MD on Sep 26 2024 2:14PM [facility] DIVISION OF RADIOLOGY * * *Final Report* * * DATE OF EXAM: Sep 26 2024 12:29PM [facility] 0295 - MRI BRAIN WO/W IVCON [...] tissues otherwise unremarkable. DIVISION OF RADIOLOGY Provider, [facility] - 09/26/2024 * * *Final Report* * * DATE OF EXAM: Sep 26 2024 12:29PM [facility] 0295 - MRI BRAIN WO/W IVCON [...] petrous ridge presumed meningioma compared to 03/02/2024. Warp Worker: ALLYSSA Transcribe Date/Time: Sep 26 2024 2:10P Dictated by : MAUREEN PEARL MD This examination was interpreted and the report reviewed and electronically signed by: MAUREEN PEARL MD on Sep 26 2024 2:14PM EST [facility] Radiology Study observation (narrative) [facility] MR Brain WO and W contrast I VOrdered By: Ccf Provider on 09-26-2024 [facility] MRI BRAIN WO/W IVCONon 09-26 MRI BRAIN WO/W IVCON * * *Final Report* * * DATE OF EXAM: Sep 26 2024 12:29PM [facility] 0295 - MRI BRAIN WO/W IVCON [...] petrous ridge presumed meningioma compared to 03/02/2024. Warp Worker: PSCB Transcribe Date/Time: Sep 26 2024 2:10P Dictated by : MAUREEN PEARL MD This examination was interpreted and the report reviewed and electronically signed by: MAUREEN PEARL MD on Sep 26 2024 2:14PM EST [id number] Normal [facility] - Microbiology an d Antimicrobial susceptibilityon 08-16-2024 SARS-CoV-2 (COVID-19) RNA MICHAEL+probe Ql (Unsp spec) Negative [facility] No Panel Informationon 08-16 FLU A Negative [facility] FLU B Negative [facility] Interpretation and review of laboratory results Normal [facility] XR Thoracic spine 3 Viewson 07-11-2024 [...] report is generated using voice recognition reporting (Levlr). On occasion PowerScribe erroneously drops words from [...] report is generated using voice recognition reporting (Savisione). On occasion PowerScribe erroneously drops words from the report or replaces the spoken word with similar sounding words. Please call with any questions/concerns regarding this report.* Dictated and transcribed 07/11/2024/tm This report has been electronically signed and approved by the interpreting radiologist. Electronically Signed Shubham Almodovar II, M.D. 2024-07-11 10:01:04 [facility] XR Thoracic spine 3 ViewsOrd ered By: Shubham Almodovar on 07-11-2024 [facility] Work Phone: Urinalysis macro (dipstick) panel (U)on 07-10-2024 Bilirubin, UA Negative Negative - 4(70) +++ mg/dL [facility] Blood, UA Positive Negative - 50 Darryl/mcL [facility] Clarity, UA Cloudy [facility] Color, UA Yellow [facility] Glucose, UA Negative Negative - 2000(110) ++++ mg/dL [facility] Interpretation and review of laboratory results Abnormal [facility] Ketones, UA Negative Negative - 160(16) ++++ mg/dL [facility] Leukocytes, UA 3+ Negative - 500+++ Obdulio/mcL [facility] Nitrite, UA Positive Negative - Positive [facility] pH, UA 6.5 5 - 9 [facility] Protein, UA 2+ Negative - 1999(20) ++++ mg/dL [facility] Spec Grav, UA 1.010 1 - 1.03 [facility] Urobilinogen, UA 1.0 0.2 - 12 mg/dL [facility] XR Thoracic spine 3 Viewson 07-10-2024 Radiology Study observation (narrative) [facility] CNOVon 04-04-2024 CNOV Office Visit (N[facility]N ) ANGELA RUTH ([id number]) 1945 F Date Time Provider Department 04/04/24 [...] Neuro- Oncology [facility] AND [facility] CC: Patient Care Team: Bia Cao as PCP ([facility]) Corey Chacon MD as NI Referring [...] 6 months with a repeat MRI scan ([place] preference) and clinic visit with one of our skull base team advance practice providers ([place] side preference). - follow up with yarn bleaching machine operator for hearing loss which is unrelated to [...] Patient is accompanied by her granddaughter (her driver/guide) and great grand daughter). The patient is [...] contrast and shows a 1.2 cm R BLAST FURNACE KEEPER contrast-enhancing lesion concerning for either schwannoma or meningioma- no associated mass effect or edema. The patient takes ASA 81 mg daily for cardioprotection per her PCP. The patient has been using a cane for the last 5-6 years. The patient reports that ~6 weeks ago, she walked into her garage door and fell. The patient has not seen an yarn bleaching machine operator or a vestibular therapist. Past Medical History: [...] Units once (more content not included)... Normal [facility] 03-24-2024 [facility] Telephone (NIQ) ANGELA RUTH ([id number]) 1945 F Date Time Provider Department 03/24/24 NEUROLOGY PROVIDER NI During your visit today, we recorded the following information about you: Shelli Fletcher 03/24/2024 5:01 PM Signed Referral source: Corey Chacon MD ([facility]) Reason for visit: consideration of gamma knife for 1.2 cm enhancing lesion at right cerebelloponitine angle with leading differential including vestibular schwannoma and meningioma External records: Sent with referral and pulled from [facility] Triage: Required, forwarded to [facility] by telephone encounter sent to [facility] Scheduling Triage. Financial clearance: Not required to schedule Rose Velasquez APRN.WAITER/WAITRESS CAFETERIA 03/28/2024 10:00 AM Signed Time Frame: First available Provider: Kiko Landrum Soni Referring: Corey Chacon MD Images to be requested from [facility] Dx: Right CPA mass Patient: Angela Ruth Address: Angela Ruth [id number] [place] [address] [place] [address] Per Triage: HISTORY OF PRESENT ILLNESS Angela [...] extracranial soft tissues are unremarkable. Rose Velasquez APRN.WAITER/WAITRESS CAFETERIA March 28, 2024 Etelvina Trujillo 03/28/2024 10:12 AM Signed Called patient to schedule an appointment. No ans/left message to call the office back. Appointment scheduled: 04/04/2024 10:30 AM (Arrive by 10:15 AM) Mandi Hoover MD [facility] RAMAN Alonso Janette 04/06/2024 10:40 AM Addendum Imaging requested from [facility]. DOS requested: MRI 03/02/2024 CT Scan 02/11 2024 AND 03/09/2023, 02/11/2024. 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 (REFER (more content not included)... Normal [facility] CT Abdomen/Pelvis w + w/o Co [...] Felix Dominguez on 12/07/2022 1159 Normal [facility] Producer XR HAND LEFT (MIN 3 VIEWS)on 11-07-2022 [...] Matt Cowart MD 11/07/22 Final result Normal [facility] XR HAND LEFT (MIN 3 [...] Matt Cowart MD 11/07/22 Final result Normal [facility] XR Chest 2 Views*on 09-10-20 [...] by Bartolome Monson on 09/10/2022 1507 Normal [facility] Complete Blood Count with Au to Diffon 12-11-2021 Basophils (Bld) [#/Vol] 0.07 10*3/uL Normal 0.00-0.20 [facility] Specialist Comment on above: Performed By: #### C MP, CBCAD #### [facility] [address], [place] [id number] Basophils/100 WBC (Bld) 0.9 % Normal [facility] Comment on above: Performed By: #### C MP, CBCAD #### [facility] [address], [place] [id number] Eosinophils (Bld) [#/Vol] 0.17 10*3/uL Normal 0.02-0.50 [facility] Specialist Comment on above: Performed By: #### C LG, CBCAD #### [facility] [address], [place] [id number] Eosinophils/100 WBC (Bld) 2.3 % Normal [facility] Specialist Comment on above: Performed By: #### C MP, CBCAD #### [facility] [address], [place] [id number] Erythrocyte distribution width (RBC) [Ratio] 16.4 % High 11.0-15.0 [facility] Specialist Comment on above: Performed By: #### C MP, CBCAD #### [facility] [address], [place] [id number] Hematocrit (Bld) [Volume fraction] 42.9 % Normal 35.0-47.0 [facility] Comment on above: Performed By: #### C MP, CBCAD #### [facility] [address], [place] [id number] Hemoglobin (Bld) [Mass/Vol] 13.5 g/dL Normal 11.6-15.5 [facility] Specialist Comment on above: Performed By: #### C MP, CBCAD #### [facility] [address], [place] [id number] Lymphocytes (Bld) [#/Vol] 2.7 10*3/uL Normal 0.9-3.9 [facility] Specialist Comment on above: Performed By: #### C MP, CBCAD #### [facility] [address], [place] [id number] Lymphocytes/100 WBC (Bld) 36.1 % Normal [facility] Specialist Comment on above: Performed By: #### C MP, CBCAD #### [facility] [address], [place] [id number] MCH (RBC) [Entitic mass] 27.7 pg Normal 27.0-33.0 [facility] Specialist Comment on above: Performed By: #### C MP, CBCAD #### [facility] [address], [place] [id number] MCHC (RBC) [Mass/Vol] 31.5 g/dL Low 32.0-36.0 [facility] Comment on above: Performed By: #### C MP, CBCAD #### [facility] [address], [place] [id number] MCV (RBC) [Entitic vol] 88 fL Normal 80-100 [facility] Specialist Comment on above: Performed By: #### C MP, CBCAD #### [facility] [address], [place] [id number] Monocytes (Bld) [#/Vol] 0.8 10*3/uL Normal 0.2-0.9 [facility] Special[facility] Comment on above: Performed By: #### C MP, CBCAD #### [facility] [address], [place] [id number] Monocytes/100 WBC (Bld) 10.8 % Normal [facility] Specialist Comment on above: Performed By: #### C MP, CBCAD #### [facility] [address], [place] [id number] Neutrophils (Bld) [#/Vol] 3.7 10*3/uL Normal 1.5-7.8 [facility] Special[facility] Comment on above: Performed By: #### C MP, CBCAD #### [facility] [address], [place] [id number] Neutrophils/100 WBC (Bld) 49.2 % Normal [facility] Specialist Comment on above: Performed By: #### C MP, CBCAD #### [facility] [address], [place] [id number] Platelet mean volume (Bld) [Entitic vol] 11.00 fL Normal 7.50-12.50 [facility] Comment on above: Performed By: #### C MP, CBCAD #### [facility] [address], [place] [id number] Platelets (Bld) [#/Vol] 246 10*3/uL Normal 140-400 [facility] Specialist Comment on above: Performed By: #### C MP, CBCAD #### [facility] [address], [place] [id number] RBC (Bld) [#/Vol] 4.88 10*6/uL Normal 3.90-5.20 [facility] Specialist Comment on above: Performed By: #### C MP, CBCAD #### [facility] [address], [place] [id number] RDW-SD 53.1 fL High 37.0-50.0 [facility] Comment on above: Performed By: #### C MP, CBCAD #### [facility] [address], [place] [id number] WBC (Bld) [#/Vol] 7.5 10*3/uL Normal 3.8-11.0 [place] [facility] Comment on above: Performed By: #### C MP, CBCAD #### [facility] [address], [place] [id number] Comprehensive Metabolic Pane becky 12-11-2021 Albumin [Mass/Vol] 4.2 g/dL Normal 3.6-5.1 Pawan rn [place] [facility] Comment on above: Performed By: #### C MP, CBCAD #### [facility] [address], [place] [id number] Albumin/Globulin [Mass ratio] 1.7 {ratio} Normal 1.0-2.5 [facility] Comment on above: Performed By: #### C MP, CBCAD #### [facility] [address], [place] [id number] ALP [Catalytic activity/Vol] 71 U/L Normal 35-119 [facility] Comment on above: Performed By: #### C MP, CBCAD #### [facility] [address], [place] [id number] ALT [Catalytic activity/Vol] 12 U/L Normal 6-33 [facility] Comment on above: Result Comment: 10/22 Female reference range changed. Performed By: #### C MP, CBCAD #### [facility] [address], [place] [id number] Anion gap [Moles/Vol] 18 mmol/L Normal 12-20 [facility] Specialist Comment on above: Result Comment: Effe ctive 11/27/2019 reference range changed. Performed By: #### C MP, CBCAD #### [facility] [address], [place] [id number] AST [Catalytic activity/Vol] 15 U/L Normal 9-34 [facility] Comment on above: Performed By: #### C MP, CBCAD #### [facility] [address], [place] [id number] Bilirubin [Mass/Vol] 0.33 mg/dL Normal 0.30-1.20 [facility] Comment on above: Performed By: #### C MP, CBCAD #### [facility] [address], [place] [id number] BUN/CREA 35 Ratio High 6-22 [facility] Comment on above: Performed By: #### C MP, CBCAD #### [facility] [address], [place] [id number] Calcium [Mass/Vol] 9.4 mg/dL Normal 8.6-10.2 [facility] Comment on above: Performed By: #### C MP, CBCAD #### [facility] [address], [place] [id number] Chloride [Moles/Vol] 106 mmol/L Normal 98-107 [facility] Comment on above: Performed By: #### C MP, CBCAD #### [facility] [address], [place] [id number] CO2 [Moles/Vol] 24 mmol/L Normal 20-31 [facility] Comment on above: Performed By: #### C MP, CBCAD #### [facility] [address], [place] [id number] Creatinine [Mass/Vol] 0.9 mg/dL Normal 0.6-1.4 [facility] Comment on above: Performed By: #### C MP, CBCAD #### [facility] [address], [place] [id number] eGFRAA 70 mL/min/1.73m2 Normal >60 [facility] Comment on above: Performed By: #### C MP, CBCAD #### [facility] [address], [place] [id number] eGFRNAA 58 mL/min/1.73m2 Low >60 [facility] Comment on above: Performed By: #### C MP, CBCAD #### [facility] [address], [place] [id number] Globulin (S) [Mass/Vol] 2.5 g/dL Normal 1.9-3.7 [place] [facility] Comment on above: Performed By: #### C MP, CBCAD #### [facility] [address], [place] [id number] Glucose [Mass/Vol] 84 mg/dL Normal 65-99 Pawan fitzgerald [place] [facility] Comment on above: Result Comment: For FASTING Glucose --- ADA reference ranges: Normal 65-99 mg/dl Prediabetes 100-125 Diabetes >/= 126 Performed By: #### C MP, CBCAD #### [facility] [address], [place] [id number] Potassium [Moles/Vol] 4.3 mmol/L Normal 3.5-5.5 [facility] Specialist Comment on above: Performed By: #### C MP, CBCAD #### [facility] [address], [place] [id number] Protein [Mass/Vol] 6.7 g/dL Normal 6.1-8.1 Pawan fitzgerald [place] [facility] Comment on above: Performed By: #### C MP, CBCAD #### [facility] [address], [place] [id number] Sodium [Moles/Vol] 143 mmol/L Normal 135-146 Pawan fitzgerald [place] [facility] Comment on above: Performed By: #### C MP, CBCAD #### [facility] [address], [place] [id number] Urea nitrogen [Mass/Vol] 33 mg/dL High 7-25 [facility] Comment on above: Performed By: #### C MP, CBCAD #### [facility] [address], [place] [id number] Calciumon 06-20-2019 Calcium [Mass/Vol] 10.0 mg/dL Normal 8.4-10.2 [facility] Comment on above: Performed By: #### 1 030, 1035, 4500, 4510, 4520, 4581 #### [facility] Unless Otherwise Noted [address] [place] [address] / COLA #4724/DONNIEIA # [id number] Creatinineon 06-20-2019 Creatinine [Mass/Vol] 0.9 mg/dL Normal 0.5-1.0 [facility] Comment on above: Performed By: #### 1 030, 1035, 4500, 4510, 4520, 4581 #### [facility] Unless Otherwise Noted [address] [address] / COLA #4724/CLIA # [id number] Creatinine [Mass/Vol] 74.8 Kg Normal [facility] Comment on above: Performed By: #### 1 030, 1035, 4500, 4510, 4520, 4581 #### [facility] Unless Otherwise Noted [address] [address] / COLA #4724/CLIA # [id number] Creatinine [Mass/Vol] 64.8 ml/m1.73 Normal [facility] Comment on above: Performed By: #### 1 030, 1035, 4500, 4510, 4520, 4581 #### [facility] Unless Otherwise Noted [address] [address] / COLA #4724/CLIA # [id number] Creatinine [Mass/Vol] 65.1 ml/m1.73 Normal [facility] Comment on above: Performed By: #### 1 030, 1035, 4500, 4510, 4520, 4581 #### [facility] Unless Otherwise Noted [address] [address] / COLA #4724/CLIA # [id number] Creatinine [Mass/Vol] 78.7 ml/m1.73 Normal [facility] Comment on above: Performed By: #### 1 030, 1035, 4500, 4510, 4520, 4581 #### [facility] Unless Otherwise Noted [address] [facility] [address] [place] [address] / COLA #4724/CLIA # [id number] FT3on 06-20-2019 FT3 2.80 pg/mL Normal 2.45-5.93 [facility] Comment on above: Performed By: #### 1 030, 1035, 4500, 4510, 4520, 4581 #### [facility] Unless Otherwise Noted [address] [address] / COLA #4724/CLIA # [id number] FT4on 06-20-2019 Free T4 [Mass/Vol] 1.93 ng/dL Normal 0.78-2.44 [facility] [place] [facility] Comment on above: Performed By: #### 1 030, 1035, 4500, 4510, 4520, 4581 #### [facility] Unless Otherwise Noted [address] [address] / COLA #4724/CLIA # [id number] TSHon 06-20-2019 TSH Qn 0.57 uIU/ml Normal 0.47-4.68 [facility] and [facility] Comment on above: Performed By: #### 1 030, 1035, 4500, 4510, 4520, 4581 #### [facility] Unless Otherwise Noted [address] [facility] [address] [place] [address] / COLA #4724/CLIA # [id number] VITAMIN D 25on 06-20-2019 VITAMIN D 25 51.5 ng/ml Normal 30.0-100.0 [facility] Comment on above: Result Comment: Defi cient <20 Insufficient 20-<30 Sufficient 30-100 Potiential Toxicity >100 Performed By: #### 1 030, 1035, 4500, 4510, 4500, 4581 #### [facility] [place] Unless Otherwise Noted [address] [facility] [address] [place] [address] / MARÍA #4724/ABISAI # [id number] Basic Metabolic Profon 05-06 (cont.) Normal [facility] Comment on above: Result Comment: Aver age GFR for 70 or more years old: 75 mL/min/1.73sq mChronic Kidney Disease: <60 mL/min/1.73sq mKidney failure: <15 mL/min/1.73sq meGFR calculated using average adult body mass. Additional eGFR calculator available at:http://www.Immunovaccine/multiple_crcl_2012.htmPerformed at [facility] [address] [place] [address] Performed By: #### C DP, BMP ####[facility] [place] [address] Anion gap 14 mmol/L Normal 9-17 [facility] Comment on above: Performed By: #### C DP, BMP ####[place] [address] [place] [address] Calcium 9.6 mg/dL Normal 8.6-10.4 [facility] Comment on above: Performed By: #### C DP, BMP ####[facility] [place] [address] Chloride 106 mmol/L Normal 98-107 [facility] Comment on above: Performed By: #### C DP, BMP ####[address] [address] CO2 26 mmol/L Normal 20-31 [facility] Comment on above: Performed By: #### C DP, BMP ####[address] [address] Creatinine 0.91 mg/dL High 0.50-0.90 [facility] Comment on above: Performed By: #### C DP, BMP ####[facility] [place] [address] eGFR (non-black) mL/min/{1.73_m2} Normal >[address] [facility] Comment on above: Performed By: #### C DP, BMP ####[facility] [place] [address].[place] [address] Glucose mass conc 99 mg/dL Normal 70-99 [facility] Comment on above: Performed By: #### C DP, BMP ####[facility] [place] [address].[place] [address] Potassium molar conc 4.2 mmol/L Normal 3.7-5.3 [facility] Comment on above: Performed By: #### C DP, BMP ####[facility] [place] [address] Sodium 146 mmol/L High 135-144 [facility] Comment on above: Performed By: #### C DP, BMP ####[facility] [place] [address].[place] [address] Urea nitrogen 21 mg/dL Normal 8-23 [facility] Comment on above: Performed By: #### C DP, BMP ####[facility] [place] [address] BUN/CRE Ratio NOT REPORTED Normal 9-20 [facility] Comment on above: Performed By: #### C DP, BMP ####[facility] [place] [address].[place] [address] Staging: NOT REPORTED Normal [facility] Comment on above: Performed By: #### C DP, BMP ####[facility] [place] [address] CBC with Diffon 05-06-2018 Abs. Basophil 0.10 k/uL Normal 0.0-0.2 [facility] Comment on above: Result Comment: Perf ormed at [facility] [address] [place] [address] Performed By: #### C DP, BMP ####[facility] [place] [address] Abs.Neutrophil (Seg) 4.00 k/uL Normal 1.3-9.1 [facility] Comment on above: Performed By: #### C DP, BMP ####[facility] [place] [address] Basophils/100 WBC Auto (Bld) 1 % Normal 0-2 [facility] Comment on above: Performed By: #### C DP, BMP ####[facility] [place] [address] Eosinophils 0.20 10*3/uL Normal 0.0-0.4 [facility] Comment on above: Performed By: #### C DP, BMP ####[facility] [facility] [place] [address] Eosinophils/100 leukocytes 2 % Normal 0-4 [facility] Comment on above: Performed By: #### C DP, BMP ####[facility] [place] [address] Erythrocyte distribution width Auto Ratio (RBC) 13.9 % Normal 11.5-14.9 [facility] Comment on above: Performed By: #### C DP, BMP ####[facility] [place] [address] Erythrocytes (RBC) 4.68 10*6/uL Normal 4.0-5.2 [facility] Comment on above: Performed By: #### C DP, BMP ####[facility] [place] [address] Hematocrit (HCT) 41.8 % Normal 36-46 [facility] Comment on above: Performed By: #### C DP, BMP ####[address] [address] Hemoglobin mass conc (Bld) 13.7 g/dL Normal 12.0-16.0 [facility] Comment on above: Performed By: #### C DP, BMP ####[address] [address] Lymphocytes 3.20 10*3/uL Normal 1.0-4.8 [facility] Comment on above: Performed By: #### C DP, BMP ####[address] [address] Lymphocytes/100 leukocytes 39 % Normal 24-44 [facility] Comment on above: Performed By: #### C DP, BMP ####[address] [address] MCH 29.3 pg Normal 26-34 [facility] Comment on above: Performed By: #### C DP, BMP ####[address] [address] MCHC mass conc (RBC) 32.8 g/dL Normal 31-37 [facility] Comment on above: Performed By: #### C DP, BMP ####[address] [address] MCV 89.3 fL Normal 80-100 [facility] Comment on above: Performed By: #### C DP, BMP ####[address] [address] Monocytes 0.90 10*3/uL Normal 0.1-1.3 [facility] Comment on above: Performed By: #### C DP, BMP ####[facility] [place] [address] Monocytes/100 leukocytes 11 % High 1-7 [facility] Comment on above: Performed By: #### C DP, BMP ####[facility] [place] [address] Neutrophil (Seg) 47 % Normal 36-66 [facility] Comment on above: Performed By: #### C DP, BMP ####[facility] [place] [address] Platelet mean volume (PMV) 10.3 fL Normal 6.0-12.0 [facility] Comment on above: Performed By: #### C DP, BMP ####[facility] [facility] [place] [address] Platelets 232 10*3/uL Normal 150-450 [facility] Comment on above: Performed By: #### C DP, BMP ####[facility] [place] [address].[place] [address] WBC (Leukocytes) 8.4 10*3/uL Normal 3.5-11.0 [facility] Comment on above: Performed By: #### C DP, BMP ####[facility] [place], [place] [address] [facility] [place] [address] Auto Diff Performed NOT REPORTED Normal [facility] Comment on above: Performed By: #### C DP, BMP ####[facility] [place], [place] [address]jenna [place] [address] Erythrocyte morphology NOT REPORTED Normal [facility] Comment on above: Performed By: #### C DP, BMP ####[facility] [facility] [place] [address] Erythrocytes (RBC) NOT REPORTED Normal [facility] Comment on above: Performed By: #### C DP, BMP ####[facility] [facility] [place] [address] Granulocytes/100 WBC (Bld) NOT REPORTED Normal 0.00-0.30 [facility] Comment on above: Performed By: #### C DP, BMP ####[facility] [facility] [place] [address] Immature granulocytes #/vol (Bld) NOT REPORTED Normal 0 [facility] Comment on above: Performed By: #### C DP, BMP ####[facility] [place] [address].[place] [address] Platelets NOT REPORTED Normal [facility] Comment on above: Performed By: #### C DP, BMP ####[facility] [place] [address] WBC Morphology NOT REPORTED Normal [facility] Comment on above: Performed By: #### C DP, BMP ####[facility] [place] [address] Vital Signs Date Time Vital Sign Value Performing Clinician Facility 07-20-2025 13: Body height 157.5 cm Pfo 1 [facility] 07-20-2025 13: Body mass index (BMI) [Ratio] 24.94 kg/m2 Pfo 1 [facility] 07-20-2025 13: Body temperature 98.49 [degF] Pfo 1 [facility] 07-20-2025 13: Body weight 61.87 kg Pfo 1 [facility] 07-20-2025 [id number] Diastolic blood pressure 52 mm[Hg] Pfo 1 [facility] 07-20-2025 13:14-0400 Heart rate 71 /min Pfo 1 [facility] 07-20-2025 13:14-0400 Respiratory rate 16 /min Pfo 1 [facility] 07-20-2025 13:14-0400 SaO2% (BldA) [Mass fraction] 95 % Pfo 1 [facility] 07-20-2025 13:14-0400 Systolic blood pressure 116 mm[Hg] Pfo 1 [facility] 07-10-2025 13:02-0400 Body height 160 cm Bia Cao MD Work Phone: [facility] 07-10-2025 13:02-0400 Body mass index (BMI) [Ratio] 24.16 kg/m2 Bia Cao MD Work Phone: [facility] 07-10-2025 13:02-0400 Body weight 61.87 kg Bia Cao MD Work Phone: [facility] 07-10-2025 13:02-0400 Diastolic blood pressure 68 mm[Hg] Bia Cao MD Work Phone: [facility] 07-10-2025 13:02-0400 Heart rate 71 /min Bia Cao MD Work Phone: [facility] 07-10-2025 13:02-0400 Respiratory rate 18 /min Bia Cao MD Work Phone: [facility] 07-10-2025 13:02-0400 SaO2% (BldA) [Mass fraction] 98 % Bia Cao MD Work Phone: [facility] 07-10-2025 13:02-0400 Systolic blood pressure 122 mm[Hg] Bia Cao MD Work Phone: [facility] 06-13-2025 13:57-0400 Body height 157.5 cm Randall WILKINSON Work Phone: [facility] 06-13-2025 13:57-0400 Body mass index (BMI) [Ratio] 25.6 kg/m2 Randall WILKINSON Work Phone: [facility] 06-13-2025 13:57-0400 Body weight 63.5 kg Randall WILKINSON Work Phone: [facility] 06-13-2025 13:57-0400 Diastolic blood pressure 62 mm[Hg] Randall WILKINSON Work Phone: [facility] 06-13-2025 13:57-0400 Heart rate 74 /min Randall WILKINSON Work Phone: [facility] 06-13-2025 13:57-0400 Systolic blood pressure 103 mm[Hg] Randall Jauregui PA Work Phone: [facility] 06-13-2025 12:30-0400 Body height 157.5 cm Pfo 1 [facility] 06-13-2025 12:30-0400 Body mass index (BMI) [Ratio] 25.71 kg/m2 Pfo 1 [facility] 06-13-2025 12:30-0400 Body temperature 97.5 [degF] Pfo 1 [facility] 06-13-2025 12:30-0400 Body weight 63.78 kg Pfo 1 [facility] 06-13-2025 12:30-0400 Diastolic blood pressure 46 mm[Hg] Pfo 1 [facility] 06-13-2025 12:30-0400 Heart rate 68 /min Pfo 1 [facility] 06-13-2025 12:30-0400 Respiratory rate 16 /min Pfo 1 [facility] 06-13-2025 12:30-0400 SaO2% (BldA) [Mass fraction] 98 % Pfo 1 [facility] 06-13-2025 12:30-0400 Systolic blood pressure 133 mm[Hg] Pfo 1 [facility] 05-16-2025 10:10-0400 Body height 157.5 cm Pfo 1 [facility] 05-16-2025 10:10-0400 Body mass index (BMI) [Ratio] 25.86 kg/m2 Pfo 1 [facility] 05-16-2025 10:10-0400 Body temperature 97.81 [degF] Pfo 1 [facility] 05-16-2025 10:10-0400 Body weight 64.14 kg Pfo 1 [facility] 05-16-2025 10:10-0400 Diastolic blood pressure 59 mm[Hg] Pfo 1 [facility] 05-16-2025 10:10-0400 Heart rate 77 /min Pfo 1 [facility] 05-16-2025 10:10-0400 Respiratory rate 16 /min Pfo 1 [facility] 05-16-2025 10:10-0400 SaO2% (BldA) [Mass fraction] 98 % Pfo 1 [facility] 05-16-2025 10:10-0400 Systolic blood pressure 145 mm[Hg] Pfo 1 [facility] 04-18-2025 13:24-0400 Body height 157.5 cm John Johnson MD Work Phone: [facility] 04-18-2025 13:24-0400 Body mass index (BMI) [Ratio] 26.31 kg/m2 John Johnson MD Work Phone: [facility] 04-18-2025 13:24-0400 Body weight 65.27 kg John Johnson MD Work Phone: [facility] 04-18-2025 13:24-0400 Diastolic blood pressure 68 mm[Hg] John Johnson MD Work Phone: [facility] 04-18-2025 13:24-0400 Heart rate 73 /min John Johnson MD Work Phone: [facility] 04-18-2025 13:24-0400 Systolic blood pressure 114 mm[Hg] John Johnson MD Work Phone: [facility] 04-18-2025 10:18-0400 Body height 157.5 cm Pfo 1 [facility] 04-18-2025 10:18-0400 Body mass index (BMI) [Ratio] 26.48 kg/m2 Pfo 1 [facility] 04-18-2025 10:18-0400 Body temperature 98.1 [degF] Pfo 1 [facility] 04-18-2025 10:18-0400 Body weight 65.68 kg Pfo 1 [facility] 04-18-2025 10:18-0400 Diastolic blood pressure 51 mm[Hg] Pfo 1 [facility] 04-18-2025 10:18-0400 Heart rate 77 /min Pfo 1 [facility] 04-18-2025 10:18-0400 Respiratory rate 15 /min Pfo 1 [facility] 04-18-2025 10:18-0400 SaO2% (BldA) [Mass fraction] 96 % Pfo 1 [facility] 04-18-2025 10:18-0400 Systolic blood pressure 126 mm[Hg] Pfo 1 [facility] 04-09-2025 13:33-0400 Body height 160 cm Bia Cao MD Work Phone: [facility] 04-09-2025 13:33-0400 Body mass index (BMI) [Ratio] 25.86 kg/m2 Bia Cao MD Work Phone: [facility] 04-09-2025 13:33-0400 Body weight 66.22 kg Bia Cao MD Work Phone: [facility] 04-09-2025 13:33-0400 Diastolic blood pressure 62 mm[Hg] Bia Cao MD Work Phone: [facility] 04-09-2025 13:33-0400 Heart rate 75 /min Bia Cao MD Work Phone: [facility] 04-09-2025 13:33-0400 Respiratory rate 18 /min Bia Cao MD Work Phone: [facility] 04-09-2025 13:33-0400 SaO2% (BldA) [Mass fraction] 96 % Bia Cao MD Work Phone: [facility] 04-09-2025 13:33-0400 Systolic blood pressure 124 mm[Hg] Bia Cao MD Work Phone: [facility] 03-21-2025 10:37-0400 Body height 157.5 cm Pfo 1 [facility] 03-21-2025 10:37-0400 Body mass index (BMI) [Ratio] 26.95 kg/m2 Pfo 1 [facility] 03-21-2025 10:37-0400 Body temperature 97.81 [degF] Pfo 1 [facility] 03-21-2025 10:37-0400 Body weight 66.86 kg Pfo 1 [facility] 03-21-2025 10:37-0400 Diastolic blood pressure 62 mm[Hg] Pfo 1 [facility] 03-21-2025 10:37-0400 Heart rate 63 /min Pfo 1 [facility] 03-21-2025 10:37-0400 Respiratory rate 15 /min Pfo 1 [facility] 03-21-2025 10:37-0400 SaO2% (BldA) [Mass fraction] 99 % Pfo 1 [facility] 03-21-2025 10:37-0400 Systolic blood pressure 149 mm[Hg] Pfo 1 [facility] 02-27-2025 14:30-0400 Body height 157.5 cm Randall WILKINSON Work Phone: [facility] 02-27-2025 14:30-0400 Body mass index (BMI) [Ratio] 26.89 kg/m2 Randall WILKINSON Work Phone: [facility] 02-27-2025 14:30-0400 Body weight 66.68 kg Randall WILKINSON Work Phone: [facility] 02-27-2025 14:30-0400 Diastolic blood pressure 59 mm[Hg] Randall WILKINSON Work Phone: [facility] 02-27-2025 14:30-0400 Heart rate 85 /min Randall WILKINSON Work Phone: [facility] 02-27-2025 14:30-0400 Systolic blood pressure 97 mm[Hg] Randall WILKINSON Work Phone: [facility] 02-16-2025 13:05-0400 Body height 157.5 cm Pfo 1 [facility] 02-16-2025 13:05-0400 Body mass index (BMI) [Ratio] 27.03 kg/m2 Pfo 1 [facility] 02-16-2025 13:05-0400 Body temperature 98.4 [degF] Pfo 1 [facility] 02-16-2025 13:05-0400 Body weight 67.04 kg Pfo 1 [facility] 02-16-2025 13:05-0400 Diastolic blood pressure 49 mm[Hg] Pfo 1 [facility] 02-16-2025 13:05-0400 Heart rate 85 /min Pfo 1 [facility] 02-16-2025 13:05-0400 Respiratory rate 18 /min Pfo 1 [facility] 02-16-2025 13:05-0400 SaO2% (BldA) [Mass fraction] 96 % Pfo 1 [facility] 02-16-2025 13:05-0400 Systolic blood pressure 123 mm[Hg] Pfo 1 [facility] 02-12-2025 08:08-0400 Body height 157.5 cm Yoanna Dorsey APRN-WAITER/[employer] Work Phone: [facility] 02-12-2025 08:08-0400 Body mass index (BMI) [Ratio] 27.22 kg/m2 Yoanna Dorsey APRN-WAITER/[employer] Work Phone: [facility] 02-12-2025 08:08-0400 Body weight 67.5 kg Yoanna Willian SANTOSN-WAITER/[employer] Work Phone: [facility] 02-12-2025 08:08-0400 Diastolic blood pressure 78 mm[Hg] Yoanna Dorsey APRN-WAITER/[employer] Work Phone: [facility] 02-12-2025 08:08-0400 Heart rate 77 /min Yoanna Dorsey APRN-WAITER/[employer] Work Phone: [facility] 02-12-2025 08:08-0400 Systolic blood pressure 116 mm[Hg] Yoanna Dorsey PRETZEL TWISTING MACHINE OPERATOR-WAITER/[employer] Work Phone: [facility] 01-23-2025 16:22-0500 Body height 160 cm Bia Cao MD Work Phone: [facility] 01-23-2025 16:22-0500 Body mass index (BMI) [Ratio] 25.37 kg/m2 Bia Cao MD Work Phone: [facility] 01-23-2025 16:22-0500 Body temperature 97.39 [degF] Bia Cao MD Work Phone: [facility] 01-23-2025 16:22-0500 Body weight 64.95 kg Bia Cao MD Work Phone: [facility] 01-23-2025 16:22-0500 Diastolic blood pressure 74 mm[Hg] Bia Cao MD Work Phone: [facility] 01-23-2025 16:22-0500 Heart rate 87 /min Bia Cao MD Work Phone: [facility] 01-23-2025 16:22-0500 Respiratory rate 18 /min Bia Cao MD Work Phone: [facility] 01-23-2025 16:22-0500 SaO2% (BldA) [Mass fraction] 96 % Bia Cao MD Work Phone: [facility] 01-23-2025 16:22-0500 Systolic blood pressure 122 mm[Hg] Bia Cao MD Work Phone: [facility] 01-15-2025 14:20-0500 Body height 160 cm Bia Cao MD Work Phone: [facility] 01-15-2025 14:20-0500 Body mass index (BMI) [Ratio] 26.04 kg/m2 Bia Cao MD Work Phone: [facility] 01-15-2025 14:20-0500 Body weight 66.68 kg Bia Cao MD Work Phone: [facility] 01-15-2025 14:20-0500 Diastolic blood pressure 66 mm[Hg] Bia Cao MD Work Phone: [facility] 01-15-2025 14:20-0500 Heart rate 86 /min Bia Cao MD Work Phone: [facility] 01-15-2025 14:20-0500 Respiratory rate 18 /min Bia Cao MD Work Phone: [facility] 01-15-2025 14:20-0500 SaO2% (BldA) [Mass fraction] 94 % Bia Cao MD Work Phone: [facility] 01-15-2025 14:20-0500 Systolic blood pressure 130 mm[Hg] Bia Cao MD Work Phone: [facility] 01-12-2025 12:54-0500 Body height 160 cm Pfo 1 [facility] 01-12-2025 12:54-0500 Body mass index (BMI) [Ratio] 26.22 kg/m2 Pfo 1 [facility] 01-12-2025 12:54-0500 Body temperature 98.6 [degF] Pfo 1 [facility] 01-12-2025 12:54-0500 Body weight 67.13 kg Pfo 1 [facility] 01-12-2025 12:54-0500 Diastolic blood pressure 54 mm[Hg] Pfo 1 [facility] 01-12-2025 12:54-0500 Heart rate 82 /min Pfo 1 [facility] 01-12-2025 12:54-0500 Respiratory rate 16 /min Pfo 1 [facility] 01-12-2025 12:54-0500 SaO2% (BldA) [Mass fraction] 96 % Pfo 1 [facility] 01-12-2025 12:54-0500 Systolic blood pressure 107 mm[Hg] Pfo 1 [facility] 01-11-2025 15:07-0500 Body height 160 cm Pfo 1 [facility] 01-11-2025 15:07-0500 Body mass index (BMI) [Ratio] 26.22 kg/m2 Pfo 1 [facility] 01-11-2025 15:07-0500 Body temperature 97.11 [degF] Pfo 1 [facility] 01-11-2025 15:07-0500 Body weight 67.13 kg Pfo 1 [facility] 01-11-2025 15:07-0500 Diastolic blood pressure 85 mm[Hg] Pfo 1 [facility] 01-11-2025 15:07-0500 Heart rate 83 /min Pfo 1 [facility] 01-11-2025 15:07-0500 Respiratory rate 16 /min Pfo 1 [facility] 01-11-2025 15:07-0500 SaO2% (BldA) [Mass fraction] 96 % Pfo 1 [facility] 01-11-2025 15:07-0500 Systolic blood pressure 140 mm[Hg] Pfo 1 [facility] 01-09-2025 13:53-0500 Body height 160 cm Katerin Alvarado MD Work Phone: [facility] 01-09-2025 13:53-0500 Body mass index (BMI) [Ratio] 26.57 kg/m2 Katerin Alvarado MD Work Phone: [facility] 01-09-2025 13:53-0500 Body weight 68.04 kg Katerin Alvarado MD Work Phone: [facility] 01-09-2025 13:53-0500 Diastolic blood pressure 62 mm[Hg] Katerin Alvarado MD Work Phone: [facility] 01-09-2025 13:53-0500 Heart rate 87 /min Katerin Alvarado MD Work Phone: [facility] 01-09-2025 13:53-0500 Systolic blood pressure 108 mm[Hg] Katerin Alvarado MD Work Phone: [facility] 12-26-2024 09:30-0500 Body height 160 cm Bia Cao MD Work Phone: [facility] 12-26-2024 09:30-0500 Body mass index (BMI) [Ratio] 26.57 kg/m2 Bia Cao MD Work Phone: [facility] 12-26-2024 09:30-0500 Body weight 68.04 kg Bia Cao MD Work Phone: [facility] 12-26-2024 09:30-0500 Diastolic blood pressure 74 mm[Hg] Bia Cao MD Work Phone: [facility] 12-26-2024 09:30-0500 Heart rate 85 /min Bia Cao MD Work Phone: [facility] 12-26-2024 09:30-0500 Respiratory rate 18 /min Bia Cao MD Work Phone: [facility] 12-26-2024 09:30-0500 SaO2% (BldA) [Mass fraction] 97 % Bia Cao MD Work Phone: [facility] 12-26-2024 09:30-0500 Systolic blood pressure 122 mm[Hg] Bia Cao MD Work Phone: [facility] 12-19-2024 13:03-0500 Body height 160 cm Maria C Kramer MD Work Phone: [facility] 12-19-2024 13:03-0500 Body mass index (BMI) [Ratio] 26.39 kg/m2 Maria C Kramer MD Work Phone: [facility] 12-19-2024 13:03-0500 Body weight 67.59 kg Maria C Kramer MD Work Phone: [facility] 12-19-2024 13:03-0500 Diastolic blood pressure 87 mm[Hg] Maria C Kramer MD Work Phone: [facility] 12-19-2024 13:03-0500 Heart rate 86 /min Maria C Kramer MD Work Phone: [facility] 12-19-2024 13:03-0500 Systolic blood pressure 162 mm[Hg] Maria C Kraemr MD Work Phone: [facility] 12-08-2024 11:49-0500 Body height 160 cm Bia Cao MD Work Phone: [facility] 12-08-2024 11:49-0500 Body mass index (BMI) [Ratio] 26.18 kg/m2 Bia Cao MD Work Phone: [facility] 12-08-2024 11:49-0500 Body weight 67.04 kg Bia Cao MD Work Phone: [facility] 12-08-2024 11:49-0500 Diastolic blood pressure 76 mm[Hg] Bia Cao MD Work Phone: [facility] 12-08-2024 11:49-0500 Heart rate 79 /min Bia Cao MD Work Phone: [facility] 12-08-2024 11:49-0500 SaO2% (BldA) [Mass fraction] 93 % Bia Cao MD Work Phone: [facility] 12-08-2024 11:49-0500 Systolic blood pressure 128 mm[Hg] Bia Cao MD Work Phone: [facility] 12-06-2024 11:48-0500 Body mass index (BMI) [Ratio] 26.55 kg/m2 John Johnson MD Work Phone: [facility] 12-06-2024 11:48-0500 Body weight 67.99 kg John Johnson MD Work Phone: [facility] 12-06-2024 11:48-0500 Diastolic blood pressure 70 mm[Hg] John Johnson MD Work Phone: [facility] 12-06-2024 11:48-0500 Heart rate 87 /min John Johnson MD Work Phone: [facility] 12-06-2024 11:48-0500 Systolic blood pressure 117 mm[Hg] John Johnson MD Work Phone: [facility] 10-30-2024 13:39-0500 Body height 160 cm Santo ABREUM Work Phone: [facility] 10-30-2024 13:39-0500 Body mass index (BMI) [Ratio] 26.18 kg/m2 Santo Meghan DPM Work Phone: [facility] 10-30-2024 13:39-0500 Body weight 67.04 kg Santo Christianson DPM Work Phone: [facility] 09-26-2024 13:39-0500 Body mass index (BMI) [Ratio] 26.17 kg/m2 Rose Velasquez PRETZEL TWISTING MACHINE OPERATOR.WAITER/[employer] Work Phone: [facility] 09-26-2024 13:39-0500 Body weight 67 kg Rose Velasquez PRETZEL TWISTING MACHINE OPERATOR.WAITER/[employer] Work Phone: [facility] 09-26-2024 13:39-0500 Diastolic blood pressure 81 mm[Hg] Rose Velasquez PRETZEL TWISTING MACHINE OPERATOR.WAITER/[employer]ESS [employer] Work Phone: [facility] 09-26-2024 13:39-0500 Heart rate 91 /min Rose Velasquez PRETZEL TWISTING MACHINE OPERATOR.WAITER/[employer] Work Phone: [facility] 09-26-2024 13:39-0500 SaO2% (BldA) [Mass fraction] 96 % Rose Velasquez PRETZEL TWISTING MACHINE OPERATOR.WAITER/[employer] Work Phone: [facility] 09-26-2024 13:39-0500 Systolic blood pressure 143 mm[Hg] Rose Velasquez PRETZEL TWISTING MACHINE OPERATOR.WAITER/[employer]ESS [employer] Work Phone: [facility] 08-14-2024 15:57-0400 Body height 160 cm Bia Cao MD Work Phone: [facility] 08-14-2024 15:57-0400 Body mass index (BMI) [Ratio] 26.18 kg/m2 Bia Cao MD Work Phone: [facility] 08-14-2024 15:57-0400 Body weight 67.04 kg Bia Cao MD Work Phone: [facility] 08-14-2024 15:57-0400 Diastolic blood pressure 88 mm[Hg] Bia Cao MD Work Phone: [facility] 08-14-2024 15:57-0400 Heart rate 88 /min Bia Cao MD Work Phone: [facility] 08-14-2024 15:57-0400 SaO2% (BldA) [Mass fraction] 95 % Bia Cao MD Work Phone: [facility] 08-14-2024 15:57-0400 Systolic blood pressure 148 mm[Hg] Bia Cao MD Work Phone: [facility] 08-08-2024 11:40-0400 Body height 160 cm Bia Cao MD Work Phone: [facility] 08-08-2024 11:40-0400 Body mass index (BMI) [Ratio] 26.43 kg/m2 Bia Cao MD Work Phone: [facility] 08-08-2024 11:40-0400 Body weight 67.68 kg Bia Cao MD Work Phone: [facility] 08-08-2024 11:40-0400 Diastolic blood pressure 84 mm[Hg] Bia Cao MD Work Phone: [facility] 08-08-2024 11:40-0400 Heart rate 77 /min Bia Cao MD Work Phone: [facility] 08-08-2024 11:40-0400 Respiratory rate 20 /min Bia Cao MD Work Phone: [facility] 08-08-2024 11:40-0400 SaO2% (BldA) [Mass fraction] 97 % Bia Cao MD Work Phone: [facility] 08-08-2024 11:40-0400 Systolic blood pressure 136 mm[Hg] Bia Cao MD Work Phone: [facility] 07-10-2024 15:39-0400 Body height 160 cm Bia Cao MD Work Phone: [facility] 07-10-2024 15:39-0400 Body mass index (BMI) [Ratio] 27.1 kg/m2 iBa Cao MD Work Phone: [facility] 07-10-2024 15:39-0400 Body weight 69.4 kg Bia Cao MD Work Phone: [facility] 07-10-2024 15:39-0400 Diastolic blood pressure 72 mm[Hg] Bia Cao MD Work Phone: [facility] 07-10-2024 15:39-0400 Heart rate 90 /min Bia Cao MD Work Phone: [facility] 07-10-2024 15:39-0400 Respiratory rate 18 /min Bia Cao MD Work Phone: [facility] 07-10-2024 15:39-0400 SaO2% (BldA) [Mass fraction] 97 % Bia Cao MD Work Phone: [facility] 07-10-2024 15:39-0400 Systolic blood pressure 126 mm[Hg] Bia Cao MD Work Phone: [facility] 04-04-2024 11:29-0400 Body height 160 cm Mandi Hoover MD Work Phone: [facility] 04-04-2024 11:29-0400 Body mass index (BMI) [Ratio] 27.18 kg/m2 Mandi Hoover MD Work Phone: [facility] 04-04-2024 11:29-0400 Body temperature 97.7 [degF] Mandi Hoover MD Work Phone: [facility] 04-04-2024 11:29-0400 Body weight 69.6 kg Mandi Hoover MD Work Phone: [facility] 04-04-2024 11:29-0400 Diastolic blood pressure 65 mm[Hg] Mandi Hoover MD Work Phone: [facility] 04-04-2024 11:29-0400 Heart rate 80 /min Mandi Hoover MD Work Phone: [facility] 04-04-2024 11:29-0400 Respiratory rate 18 /min Mandi Hoover MD Work Phone: [facility] 04-04-2024 11:29-0400 SaO2% (BldA) [Mass fraction] 96 % Mandi Hoover MD Work Phone: [facility] 04-04-2024 11:29-0400 Systolic blood pressure 105 mm[Hg] Mandi Hoover MD Work Phone: [facility] Encounters Encounter Date Encounter Type Care Provider Facility Start: 07-25-2025 End: 07-25-2025 Refill Bia Cao MD Work Phone: [facility] Comment on above: Gastroesophageal ref lux disease without esophagitis Start: 07-20-2025 End: 07-20-2025 ambulatory Pfo Infusion Chair 1 Meggan Harrison [facility] Comment on above: Osteoporosis, unspec ified osteoporosis type, unspecified pathological fracture presence (Primary Dx) Start: 07-16-2025 ambulatory [facility] Anny CAO [facility] Start: 07-10-2025 End: 07-10-2025 Bamboo flowsheet Bia Cao MD Work Phone: [facility] Start: 07-10-2025 End: 07-10-2025 Bamboo flowsmelissa Cao MD Work Phone: [facility] Start: 07-10-2025 End: 07-10-2025 Office outpatient visit 25 minutes Bia Cao MD Work Phone: [facility] Comment on above: Stage 3b chronic kid juwan disease (CKD) ([facility]); Major depressive disorder, single episode, in full remission ; Age-related osteoporosis without current pathological fracture ; Moderate persistent asthma without complication (HCC); Diastolic dysfunction with chronic heart failure (HCC); Chronic idiopathic constipation; Mild intermittent asthma without complication (HCC); Interstitial pulmonary disease, unspecified (HCC) Start: 07-10-2025 End: 07-10-2025 ambulatory BIA CAO Not Available Start: 07-02-2025 End: 07-02-2025 ambulatory Adelfo Hansen MD Facility:[facility] Start: 06-26-2025 End: 06-26-2025 ambulatory BIA CAO Not Available Start: 06-26-2025 End: 06-26-2025 Telephone encounter Bia Cao MD Work Phone: [facility] Start: 06-19-2025 End: 06-19-2025 Refill Tae Hardy NP Work Phone: [facility] Comment on above: Primary insomnia; Major depressive disorder, single episode, in full remission Start: 06-13-2025 End: 06-13-2025 Office outpatient visit 15 minutes Randall WILKINSON Work Phone: [facility] Comment on above: Kidney stones (Prima ry Dx); Urge incontinence Start: 06-13-2025 End: 06-13-2025 ambulatory RANDALL JAUREGUI [facility] Start: 06-13-2025 End: 06-13-2025 ambulatory Pfo Infusion Chair 1 Meggan [facility] Comment on above: Osteoporosis, unspec ified osteoporosis type, unspecified pathological fracture presence (Primary Dx) Start: 06-12-2025 ambulatory [facility] Start: 05-16-2025 End: 05-16-2025 ambulatory Pfo Infusion Chair 1 Meggan [facility] Comment on above: Osteoporosis, unspec ified osteoporosis type, unspecified pathological fracture presence (Primary Dx) Start: 05-15-2025 ambulatory [facility] Start: 05-14-2025 End: 05-14-2025 ambulatory Adelfo Hansen MD Facility:[facility] Start: 05-08-2025 End: 05-08-2025 Telephone encounter Katerin Alvarado MD Work Phone: [facility] Comment on above: outgoing referral Start: 04-23-2025 End: 04-23-2025 ambulatory Adelfo Hansen MD Facility:[facility] Start: 04-18-2025 End: 04-18-2025 Office outpatient visit 25 minutes John Johnson MD Work Phone: [facility] Adult Endocrinology, A Department of [facility] Comment on above: Osteoporosis, unspec ified osteoporosis type, unspecified pathological fracture presence (Primary Dx); Hypothyroidism, unspecified type; Age-related osteoporosis without current pathological fracture; Vitamin D deficiency Start: 04-18-2025 ambulatory JOHN GUNDATIMOTHY [facility] Start: 04-18-2025 End: 04-18-2025 ambulatory Pfo Infusion Chair 1 [facility] Comment on above: Osteoporosis, unspec ified osteoporosis type, unspecified pathological fracture presence (Primary Dx) Start: 04-13-2025 [facility] Start: 04-09-2025 End: 04-09-2025 Bambo flowsheet Bia Cao MD Work Phone: [facility] Start: 04-09-2025 End: 04-09-2025 [facility] flowsheet Bia Cao MD Work Phone: [facility] [...] ambulatory Pfo Infusion Chair 1 [facility]gan [facility] Comment on above: Osteoporosis, unspec ified osteoporosis type, unspecified pathological fracture presence (Primary Dx) Start: 03-19-2025 End: 03-19-2025 ambulatory [facility] Start: 02-27-2025 End: 02-27-2025 Office outpatient visit 15 minutes Randall WILKINSON Work Phone: [facility] Comment on above: Urge incontinence (P rimary Dx); Frequent UTI Start: 02-27-2025 End: 02-27-2025 ambulatory RANDALL JAUREGUI [facility] Start: 02-19-2025 End: 02-19-2025 Orders Only Yoanna Dorsey PRETZEL TWISTING MACHINE OPERATOR-WAITER/WAITRESS CAFETERIA Work Phone: [facility] Neurology, A Department of [facility] Comment on above: Migraine without aur a and without status migrainosus, not intractable (Primary Dx); Essential tremor; Cervical radiculopathy; Bilateral occipital neuralgia Essential hypertensi on (CMS/HCC) (Primary Dx) Start: 02-16-2025 End: 02-16-2025 ambulatory Pfo Infusion Chair 1 [facility] Comment on above: Osteoporosis, unspec ified osteoporosis type, unspecified pathological fracture presence (Primary Dx) Start: 02-14-2025 End: 02-14-2025 ambulatory BIA CAO [facility] Start: 02-13-2025 End: 02-13-2025 ambulatory BIA CAO Not Available Start: 02-12-2025 End: 02-12-2025 Telephone encounter Bia Cao MD Work Phone: [facility] Start: 02-12-2025 End: 02-12-2025 ambulatory [facility] Start: 02-12-2025 End: 02-12-2025 Office outpatient visit 15 minutes Yoanna Willian PRETZEL TWISTING MACHINE OPERATOR-WAITER/WAITRESS CAFETERIA Work Phone: [facility] Neurology, A Department of [facility] Comment on above: Migraine without aur a and without status migrainosus, not intractable (Primary Dx); Essential tremor; Psychophysiological insomnia Start: 02-09-2025 End: 02-09-2025 Telephone encounter [facility] Start: 02-08-2025 End: 03-20-2025 Orders Only Gladys Zambrano LPN [facility] Adult Endocrinology, A Department of [facility] Comment on above: Osteoporosis, unspec ified osteoporosis type, unspecified pathological fracture presence (Primary Dx) Start: 02-06-2025 End: 02-06-2025 ambulatory BIA CAO Not Available Start: 01-31-2025 End: 01-31-2025 Refill Bia Cao MD Work Phone: [facility] Comment on above: Stress incontinence of urine Start: 01-23-2025 End: 01-23-2025 ambulatory BIA Anny ALVARADOER Not Available Start: 01-23-2025 End: 01-23-2025 Office [...] [facility] Start: 01-22-2025 ambulatory BIA CAO [facility] Start: 01-15-2025 End: 01-15-2025 Office outpatient visit [...] 01-12-2025 ambulatory [facility] Comment on above: Osteoporosis, unspec ified osteoporosis type, unspecified pathological fracture presence (Primary Dx) Start: 01-12-2025 End: 01-12-2025 ambulatory [facility] Anny [facility] Start: 01-11-2025 End: 01-11-2025 ambulatory Pfo Infusion Chair 1 Meggan Harrison [facility] Start: 01-09-2025 End: [...] with hematuria (Primary Dx) Start: 12-29-2024 ambulatory [facility] Anny [facility] Start: 12-26-2024 End: 12-26-2024 Bamboo flowsmelissa Cao MD Work Phone: [facility] Start: 12-26-2024 End: 12-26-2024 Bamboo flowsmelissa Cao MD Work Phone: [facility] Start: 12-26-2024 End: 12-26-2024 ambulatory BIA CAO Not Available Start: 12-26-2024 End: 12-26-2024 Office outpatient visit 25 minutes Bia Cao MD Work Phone: [facility] Comment on above: Hoarse (Primary Dx); Primary insomnia; Major depressive disorder, single episode, in full remission ([facility]); Fall, subsequent encounter; Gastroesophageal reflux disease without esophagitis Start: 12-25-2024 End: 12-25-2024 Telephone encounter Bia Cao MD Work Phone: [facility] Start: 12-23-2024 End: 12-23-2024 Emergency department patient visit BIA CAO [facility] Start: 12-22-2024 End: 12-22-2024 Orders Only John Johnson MD Work Phone: [facility] Adult Endocrinology, A Department of [facility] Comment on above: Osteoporosis, unspec ified osteoporosis type, unspecified pathological fracture presence (Primary Dx) Start: 12-19-2024 End: 12-19-2024 Office outpatient visit 15 minutes Maria C Kramer MD Work Phone: [facility] Comment on above: Urge incontinence (P rimary Dx) Start: 12-19-2024 End: 12-19-2024 ambulatory MARIA C KRAMER [facility] Start: 12-18-2024 End: 12-18-2024 ambulatory Adelfo Hansen MD Facility:[facility] Start: 12-12-2024 End: 12-12-2024 Refill Bia Cao [...] 25 minutes John Johnson MD Work Phone: [facility] Adult Endocrinology, A Department of [facility] Comment on above: Hypothyroidism, unsp ecified type (Primary Dx); Age-related osteoporosis without current pathological fracture; Vitamin D deficiency Start: 12-06-2024 End: 12-06-2024 Orders Only Gladys Zambrano MATERIAL CHECKER [facility] Adult Endocrinology, A Department of [facility] Comment on above: Osteoporosis, unspec ified osteoporosis type, unspecified pathological fracture presence (Primary Dx) Start: 11-29-2024 End: 11-29-2024 Refill Bia Cao MD Work Phone: [facility] Comment on above: Anemia, unspecified type (Primary Dx) Start: 11-28-2024 End: 11-28-2024 ambulatory [facility] Start: 11-20-2024 End: 11-20-2024 [facility] Start: 11-06-2024 End: 11-06-2024 Refill Bia Cao MD Work Phone: [facility] Comment on above: Hyperlipidemia, unsp ecified hyperlipidemia type (CMS/HCC) Start: 10-30-2024 End: 10-30-2024 Bamboo flowsheet Santo Christianson DPM Work Phone: [facility] Start: 10-30-2024 End: 10-30-2024 Bamboo flowsheet Santo Christianson DPM Work Phone: [facility] Start: 10-30-2024 End: 10-30-2024 Patient encounter procedure Santo Christianson DPM Work Phone: [facility] Comment on above: Dermatophytosis of n ail (Primary Dx); Dystrophic nail; Pain around toenail, right foot; Pain around toenail, left foot Start: 10-30-2024 End: 10-30-2024 ambulatory SANTO CHRISTIANSON Not Available Start: 10-04-2024 End: 10-06-2024 Telephone encounter Rose Velasquez PRETZEL TWISTING MACHINE OPERATOR.WAITER/WAITRESS CAFETERIA Work Phone: [facility] Comment on above: Patient Question Start: 09-26-2024 End: 09-26-2024 ambulatory ROSE VELASQUEZ Facility:[facility] Start: 09-26-2024 End: 09-26-2024 Patient encounter procedure Rose Velasquez PRETZEL TWISTING MACHINE OPERATOR.WAITER/WAITRESS CAFETERIA Work Phone: Neurosurgery Comment on above: 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 Start: 08-21-2024 End: 08-21-2024 ambulatory Adelfo Hansen MD Facility: [facility] Start: 08-14-2024 End: 08-14-2024 Office outpatient visit 15 minutes Bia Cao MD Work Phone: [facility] Comment on above: Acute bronchitis, un specified organism (Primary Dx); Seasonal allergic rhinitis due to pollen Start: 08-14-2024 End: 08-14-2024 ambulatory BIA ALVARADOER Not Available Start: 08-14-2024 End: 08-14-2024 Bamboo [...] 07-17-2024 End: 07-17-2024 ambulatory Adelfo Hansen MD Facility:[facility] Start: 07-14-2024 End: 07-14-2024 Orders Only Bia Cao MD Work Phone: [facility] Comment on above: Acute cystitis witho ut hematuria (Primary Dx) Start: 07-13-2024 End: 07-13-2024 ambulatory [facility] Start: 07-11-2024 End: 07-11-2024 [...] thoracic back pain Start: 07-10-2024 End: 07-10-2024 Bamboo flowsheet Bia Cao MD Work Phone: [facility] Start: 07-10-2024 End: 07-10-2024 Bamboo flowsheet Bia Cao MD Work Phone: [facility] Start: 05-09-2024 Orders Only Mandi gambino MD Work Phone: [facility] Comment on above: Intracranial meningi brandon (HCC) (Primary Dx); Benign neoplasm of meninges (HCC) Start: 04-04-2024 End: 04-04-2024 ambulatory MANDI HOOVER Facility:[facility] Start: 04-04-2024 End: 04-04-2024 Patient encounter procedure Mandi Hoover MD Work Phone: [facility] Comment on above: Intracranial meningi brandon (HCC) (Primary Dx); Sensorineural hearing loss (SNHL) of right ear, unspecified hearing status on contralateral side; Dizziness Start: 03-24-2024 Telephone encounter Neurology Provid er Neurology Comment on above: Received Outside [facility] (External referral to Neurological [facility]/); triage; Nurse Triage Call; Appointment Start: 01-06-2024 End: 01-06-2024 ambulatory Ria Snyder EDUCATIONAL ADVISOR Work Phone: [facility] Comment on above: General weakness (Pr imary Dx); History of falling Start: 01-04-2024 Bamboo flowsheet Ria Wrig ht EDUCATIONAL ADVISOR Work Phone: [facility] Start: 01-04-2024 Bamboo flowsheet Ria Wrig ht EDUCATIONAL ADVISOR Work Phone: [facility] Start: 01-04-2024 End: 01-04-2024 ambulatory Ria Snyder EDUCATIONAL ADVISOR Work Phone: [facility] Comment on above: General weakness (Pr imary Dx); History of falling Start: 01-03-2024 Refill Bia Gaxiola Work Phone: [facility] Comment on above: Mixed hyperlipidemia (CMS/HCC) (Primary Dx); Stress incontinence of urine Start: 12-30-2023 Chart abstracting Jonny Freitas gs PT Work Phone: [facility] Start: 12-23-2023 End: 12-23-2023 ambulatory Ria Snyder EDUCATIONAL ADVISOR Work Phone: [facility] Comment on above: General weakness (Pr imary Dx); History of falling Start: 10-12-2022 End: 10-12-2022 ambulatory [facility] Start: 09-28-2022 End: 09-28-2022 ambulatory [facility] Start: 05-16-2018 End: 05-16-2018 Ambulatory AUDREY Guillermo [facility] Start: 05-06-2018 End: 05-11-2018 Ambulatory LENNY BRIGITTETANISHA [facility] Start: 05-02-2018 Patient encounter status Antonietta Johnson MD Work Phone: [employer] Work Phone: Procedures Date Procedure Procedure Detail Performing Clinician Start: 06-13-2025 Follow-up visit Follow-up YOVANI JAUREGUI Start: 02-27-2025 Urnls dip stick/tabl et rgnt auto w/o microscopy Randall WILKINSON Work Phone: Start: 02-12-2025 Adult depression scr eening assessment Yoanna Willian PRETZEL TWISTING MACHINE OPERATOR-WAITER/WAITRESS CAFETERIA Work Phone: Start: 01-23-2025 Urnls dip stick/tabl et rgnt non-auto w/o micrscp iBa Cao MD Work Phone: Start: 01-15-2025 STATUS COVID-19/FLU Elizabeth Cao MD Work Phone: Start: 01-01-2025 Urnls dip stick/tabl et rgnt non-auto w/o micrscp Tae Hardy SAND FILLER Work Phone: Start: 12-08-2024 Culture bacterial quanttative [...] Basic metabolic pane l calcium total LENNY MILO Start: 05-06-2018 Blood count complete auto&auto difrntl wbc LENNY MILO Plan of Treatment Date Care Activity Detail Author Start: 02-10-2027 Diabetes Screening [facility] Start: 06-13-2026 Tobacco Screening Tobacco Screening [facility] Start: 05-16-2026 Tobacco Screening Tobacco Screening [facility] Start: 04-18-2026 Tobacco Screening [facility] Start: 02-27-2026 Tobacco Screening [facility] Start: 02-26-2026 End: 02-26-2026 Patient encounter procedure 02/26/2026 1:00 PM EDT Office Visit [facility] [address] [place] [address] [place] [address] Maria C Kramer MD [facility] [place] [address] [facility] Start: 02-16-2026 Tobacco Screening Tobacco Screening [facility] Start: 02-12-2026 Depression Screening Depression Scre ening [facility] Start: 02-12-2026 Fall Risk Screening Fall Risk Screen ing [facility] Start: 02-12-2026 Tobacco Screening Tobacco Screening [facility] Start: 01-14-2026 End: 06-13-2026 XR Abdomen AP X-ray abdomen ap 1 view Imaging Routine Kidney stones Expected: 01/14/2026, Expires: 06/13/2026 [facility] Work Phone: Comment on above: Expected: 01/14/2026 , Expires: 06/13/2026 Start: 01-11-2026 Tobacco Screening Tobacco Screening [facility] Start: 12-19-2025 Tobacco Screening Tobacco Screening [facility] Start: 12-06-2025 Tobacco Screening Tobacco Screening [facility] Start: 11-07-2025 End: 11-07-2025 Patient encounter procedure 11/07/2025 1:40 PM EST Office Visit [facility] [facility] [place] [phone] Bia Cao MD [address] [facility] [address] [place], [place] [id number] [facility] Start: 08-17-2025 End: 08-17-2025 ambulatory 08/17/2025 1:00 PM EDT Infusion [facility] [address] [place] [address] [facility] Start: 08-16-2025 End: 08-16-2025 Patient encounter procedure [facility] Neurology, A Department of [facility] Start: 07-23-2025 Influenza vaccination P [facility] Start: 07-13-2025 Depression Screening Depression Scre [facility] Start: 07-11-2025 End: 07-11-2025 ambulatory 07/11/2025 12:00 PM EDT Infusion [facility] [address] [place] [address] [facility] Start: 07-10-2025 End: 07-10-2026 25-hydroxyvitamin D3 [Mass/volume] in Serum or Plasma Vitamin D 25 hydroxy Lab Routine Age-related osteoporosis without current pathological fracture Expected: 07/10/2025 (Approximate), Expires: 07/10/2026 [facility] Comment on above: Expected: 07/10/2025 (Approximate), Expires: 07/10/2026 Start: 07-10-2025 End: 07-10-2026 CBC W Auto Differential panel - Blood CBC and differential Lab Routine Stage 3b [facility] Major depressive disorder, single episode, in full remission Expected: 07/10/2025 (Approximate), Expires: 07/10/2026 [facility] Work Phone: Comment on above: Expected: 07/10/2025 (Approximate), Expires: 07/10/2026 Start: 07-10-2025 End: 07-10-2026 Comprehensive metabolic 2000 panel - Serum or Plasma Comprehensive metabolic panel Lab Routine Stage 3b chronic kidney disease (CKD) ([facility]-H[facility]) Expected: 07/10/2025, Expires: 07/10/2026 [facility] Comment on above: Expected: 07/10/2025 , Expires: 07/10/2026 Start: 07-10-2025 End: 07-10-2025 Patient encounter procedure [facility] Comment on above: Arrived Start: 06-13-2025 End: 06-13-2025 Patient encounter procedure 06/13/2025 2:00 PM EDT Office Visit [facility] [address] [place] [address] [address] [facility] [phone] Randall Jauregui I, PA [address] [place] [address] [facility] Start: 06-13-2025 End: 06-13-2025 ambulatory 06/13/2025 12:30 PM EDT Infusion Meggan Dale [facility] [address] [place] [phone] Mgegan Hunter [facility] Start: 05-21-2025 Influenza vaccination Influenza Vacc ine (#1) [facility] Comment on above: Postponed from 07/23 (Other Medical Reasons) Start: 05-16-2025 End: 05-16-2025 ambulatory 05/16/2025 10:30 AM EDT Infusion Meggan Hunter [facility] [address] [place] [phone] Meggan L [facility] Start: 04-26-2025 COVID-19 Vaccine ( season) COVID-19 Vaccine () [facility] Start: 04-18-2025 End: 04-18-2026 DXA Skeletal system Views for bone density Dexa scan central skeletal Imaging Routine Osteoporosis, unspecified osteoporosis type, unspecified pathological fracture presence Expected: 04/18/2025, [facility]pires[facility]18[facility] [employer] Work Phone: Comment on above: Expected: 04/18/2025 , Expires: 04/18/2026 Start: 04-18-2025 End: 04-18-2025 Patient encounter procedure 04/18/2025 1:30 PM EDT Office Visit [facility] Adult Endocrinology, A Department of [facility] [address] [place] [address] John Johnson MD [address] [facility] [place] [address] [facility] Adult Endocrinology, A Department of [facility] Start: 04-18-2025 End: 04-18-2025 ambulatory 04/18/2025 10:30 AM EDT Infusion [facility] - Medical Oncology [address] [place] [phone] Meggan Dale [facility] Oncology Start: 04-09-2025 End: 04-09-2025 Patient encounter procedure [facility] Comment on above: Arrived Start: 04-09-2025 End: 04-09-2025 ambulatory 04/09/2025 1:00 PM EDT Infusion [facility] - [facility] Oncology [address] [place] [phone] Meggan L [facility] Medical Oncology Start: 04-06-2025 End: 04-06-2025 Patient encounter procedure 04/06/2025 10:30 AM EDT Office Visit [facility] [address] [place] [address] [place] [place] [address] Corey Corbett, 605 [facility], [address], [place] [address] [facility] Start: 03-12-2025 End: 03-12-2025 ambulatory 03/12/2025 1:30 PM EDT Infusion Meggan [facility] - [facility] Oncology [facility] [place] [phone] Meggan Hunter [facility] - [facility] Oncology Start: 03-10-2025 Fall Risk Screening Fall Risk Screen [facility] Start: 03-09-2025 End: 03-09-2025 ambulatory 03/09/2025 1:00 PM EDT Infusion [facility] On[facility] [address] [place] [phone] Meggan L [facility] Start: 02-27-2025 End: 02-27-2025 Patient encounter procedure 02/27/2025 2:30 PM EDT Office Visit [facility] [address] [place] [phone] Randall Jauregui PA [address] [place] [address] [facility] Start: 02-16-2025 End: 02-16-2025 ambulatory 02/16/2025 1:00 PM EDT Infusion [facility] [address] [place] [phone] [facility] Start: 02-13-2025 End: 02-13-2025 Professional / ancillary services management 02/13/2025 2:00 PM EDT Ancillary Procedure [facility] [address] [phone] Start: 02-12-2025 End: 02-12-2025 Patient encounter procedure [facility], A Department of [facility] Start: 02-09-2025 End: 02-09-2025 ambulatory 02/09/2025 2:00 PM EDT Infusion [facility] [address] [place] [phone] [facility] Start: 02-08-2025 End: 02-08-2025 ambulatory 02/08/2025 2:00 PM EDT Infusion [facility] [address] [place] [phone] [facility] Start: 02-06-2025 End: 02-06-2025 Patient encounter procedure 02/06/2025 9:20 AM EDT Office Visit [facility] [address] [facility] [place] [phone] Bia Cao MD [address] [facility], [place] [phone] [facility] Start: 01-23-2025 End: 01-23-2026 [...] Neurology [address] [place] [address] Yoanna Dorsey, PRETZEL TWISTING MACHINE OPERATOR-WAITER/WAITRESS CAFETERIA [address] [place] [address] [facility] Start: 01-17-2025 End: 01-17-2025 Patient encounter procedure [facility] Start: 01-15-2025 End: 01-15-2025 Patient encounter procedure 01/15/2025 2:20 PM EST Office Visit [facility] [address] [place] [phone] Bia Cao MD [address] [place] [address] Arrived [facility] Comment on above: Arrived Start: 01-12-2025 End: 01-12-2025 ambulatory 01/12/2025 2:20 PM EST Infusion [facility] Oncology [address] [place] [phone] Meggan [facility] Start: 01-09-2025 End: 01-09-2025 Patient encounter procedure 01/09/2025 1:40 PM EST Office Visit [facility] [address] [facility] [address] [place] [phone] Katerin Alvarado MD 112 [facility] 130 [place] [address] [facility] Start: 01-01-2025 End: 01-01-2026 Bacteria identified in Urine by Culture Urine culture (clean catch) Microbiology Routine Hematuria, unspecified type Expected: 01/01/2025 (Approximate), Expires: 01/01/2026 [facility] Work Phone: Comment on above: Expected: 01/01/2025 (Approximate), Expires: 01/01/2026 Start: 01-01-2025 End: 01-01-2025 Patient encounter procedure 01/01/2025 1:30 PM EST Office Visit [facility] [facility] [place] [phone] [facility] Start: 12-26-2024 End: 12-26-2024 Patient encounter procedure 12/26/2024 9:20 AM EST Office Visit [facility] [address] [facility] [place] [phone] Bia Cao MD [address] [place], [place] [phone] [facility] Start: 12-19-2024 End: 12-19-2024 Patient encounter procedure 12/19/2024 12:45 PM EST Office Visit [facility] [address] [facility] [place] [address] Maria C Kramer MD [facility] [place] [address] [facility] Start: 12-08-2024 End: 12-08-2024 Patient encounter procedure 12/08/2024 11:40 AM EST Office Visit [facility] [address] [place] [phone] Bia Cao MD [address] [place] [address] [facility] Start: 12-06-2024 Medicare Annual Well ness (AWV) Medicare Annual Wellness (AWV) [facility] Start: 10-30-2024 End: 10-30-2024 Patient encounter procedure 10/30/2024 1:45 PM EST Office Visit [facility] [address] [place] [phone] Santo Christianson DPAdali [address] [place], [place] [phone] Arrived [facility] Comment on above: Arrived Start: 08-28-2024 End: 06-08-2025 MR Brain WO and W contrast IV MRI BRAIN WO/W IVCON Radiology Routine Benign neoplasm of meninges (HCC) Expected: 08/28/2024 (Approximate), Expires: 06/08/2025 [facility] Work Phone: Comment on above: Expected: 08/28/2024 (Approximate), Expires: 06/08/2025 Start: 08-14-2024 End: 08-14-2024 Patient encounter procedure 08/14/2024 4:00 PM EDT Office Visit [facility] [address] [facility] [place] [phone] Bia Cao MD [address] [place], [place] [phone] Arrived [facility] Comment on above: Arrived Start: 08-08-2024 End: 08-08-2024 Patient encounter procedure 08/08/2024 11:40 AM EDT Office Visit [facility] [address] [place] [phone] Bia Cao MD [address] [facility] [place] [address] Arrived [facility] Comment on above: Arrived Start: 08-04-2024 End: 08-04-2024 Patient encounter procedure 08/04/2024 11:00 AM EDT Office Visit [facility] [address] [place] [phone] Bia Cao MD [address] [facility] [place] [address] [facility] Start: 07-23-2024 Covid-19 Vaccine ( season) Covid-19 Vaccine ( season) [facility] Start: 07-23-2024 Influenza vaccination [facility] Start: 07-10-2024 End: 07-10-2024 Patient encounter procedure 07/10/2024 3:40 PM EDT Office Visit [facility] [address] [facility] [place] [phone] Bia Cao MD [address] [facility] [place] [address] Arrived [facility] Comment on above: Arrived Start: 07-10-2024 End: 07-10-2025 Bacteria identified in Urine by Culture Urine culture (clean catch) Microbiology Routine Dysuria Expected: 07/10/2024 (Approximate), Expires: 07/10/2025 [facility] Work Phone: Comment on above: Expected: 07/10/2024 (Approximate), Expires: 07/10/2025 Start: 07-10-2024 End: 07-10-2025 Urinalysis complete panel - Urine Urinalysis with reflex microscopic (clean catch) Lab Routine Dysuria Expected: 07/10/2024 (Approximate), Expires: 07/10/2025 [facility] Comment on above: Expected: 07/10/2024 (Approximate), Expires: 07/10/2025 Start: 05-21-2024 Influenza vaccination Influenza Vacc ine (#1) [facility] Comment on above: Postponed from 07/23 (Patient Refused) Start: 04-04-2024 End: 04-04-2024 Patient encounter procedure 04/04/2024 10:30 AM EDT Office Visit [facility] [address] [place] [address] Mandi Hoover MD [address] [place] [address] Time Frame: First available [facility] Comment on above: Time Frame: First av ailable Start: 04-03-2024 End: 04-03-2024 Patient encounter procedure 04/03/2024 11:20 AM EDT Office Visit [facility] [address] [facility] [place] [address] Bia aCo MD [address] [facility] [place] [address] [facility] Start: 01-20-2024 End: 01-20-2024 ambulatory 01/20/2024 11:00 AM EST Treatment [facility] [address] [place] [phone] Jonny Salazar, PT [address] [place] [address] [facility] Start: 01-18-2024 End: 01-18-2024 ambulatory 01/18/2024 11:30 AM EST Treatment [facility] [address] [place] [phone] Ria Snyder, EDUCATIONAL ADVISOR [address] [place] [address] [facility] Start: 01-14-2024 End: 01-14-2024 ambulatory 01/14/2024 1:00 PM EST Treatment [facility] [address] [place] [phone] Ria Snyder, EDUCATIONAL ADVISOR [address] [place] [address] [facility] Start: 01-12-2024 End: 01-12-2024 ambulatory 01/12/2024 12:30 PM EST Treatment [facility] [address] [place] [phone] Ria Snyder, EDUCATIONAL ADVISOR [address] [place] [address] [facility] Start: 01-06-2024 End: 01-06-2024 ambulatory [facility] Start: 01-04-2024 End: 01-04-2024 ambulatory 01/04/2024 11:30 AM EST Treatment [facility] [address] [place] [phone] Ria Snyder, EDUCATIONAL ADVISOR [address] [place] [address] [facility] Start: 12-31-2023 End: 12-31-2023 ambulatory 12/31/2023 10:00 AM EST Treatment [facility] [address] [place] [phone] Ria Snyder, EDUCATIONAL ADVISOR [address] [place] [address] [facility] Start: 12-30-2023 End: 12-30-2023 ambulatory 12/30/2023 11:30 AM EST Treatment [facility] [address] [place] [phone] Jonny Salazar, PT [address] [place] [address] [facility] Start: 12-28-2023 End: 12-28-2023 ambulatory 12/28/2023 11:30 AM EST Treatment [facility] [address] [place] [phone] Ria Snyder, EDUCATIONAL ADVISOR [address] [place] [address] [facility] Start: 11-22-2023 Advance Directive Discussion Advance Directive Discussion [facility] Start: 11-22-2023 Behavioral Health Screening Behavioral Health Screening [facility] Start: 07-23-2023 Covid-19 Vaccine ( season) Covid-19 Vaccine ( season) [facility] Start: 08-21-2021 DTaP,Tdap and Td Vaccines (2 - Td or Tdap) DTaP,Tdap and Td Vaccines (2 - Td or Tdap) [facility] Start: 2020 RSV Vaccine (1 - 1-d ose 75+ series) RSV Vaccine (1 - 1-dose 75+ series) [facility] Start: 08-22-2011 Urine microalbumin profile DTaP,Tdap,Td Vaccine (1 - Tdap) [facility] Start: 01-17-2010 Administration of varicella zoster vaccine Zoster (Shingles) Vaccine (2 of 3) [facility] Start: 2005 RSV Vaccine (1 - 1-d ose 60+ series) RSV Vaccine (1 - 1-dose 60+ series) [facility] Start: 1995 Shingrix Vaccine (1 of 2) Shingrix Vaccine (1 of 2) [facility] Start: 1963 Anxiety Screening Anxiety Screening [facility] Start: 1963 Depression Screening Depression Scre ening [facility] Start: 1963 Hepatitis C screening Hepatitis C [facility] Bacteria identified in Urine by Culture Urine culture (clean catch) Microbiology Routine Urinary frequency 12/08/2024 12:28 PM EST [facility] Work Phone: End: 12-22-2025 Calcium [Mass/volume] in Serum or Plasma Calcium Lab Routine Osteoporosis, unspecified osteoporosis type, unspecified pathological fracture presence every 3 months for 4 Occurrences starting 12/22/2024 until 12/22/2025 [facility] Work Phone: Comment on above: every 3 months for 4 Occurrences starting 12/22/2024 until 12/22/2025 End: 02-08-2026 Calcium [Mass/volume] in Serum or Plasma Calcium Lab Routine Osteoporosis, unspecified osteoporosis type, unspecified pathological fracture presence MONTHLY for 12 Occurrences starting 02/08/2025 until 02/08/2026 [facility] Work Phone: Comment on above: MONTHLY for 12 Occur rences starting 02/08/2025 until 02/08/2026 End: 10-26-2025 MR Brain WO and W contrast IV MRI BRAIN WO/W IVCON Radiology Routine Benign neoplasm of meninges (HCC) 1 Occurrences starting 09/26/2024 until 10/26/2025 [facility] Work Phone: Comment on above: 1 Occurrences starti ng 09/26/2024 until 10/26/2025 Immunizations Immunization Date Immunization Notes Care Provider Frank seymour 10-26-2024 RSV, recombinant, protein subunit RSVpreF, adjuvant reconstitu, 120mcg/0.5mL, PF (Arexvy) Santo Christianson DPM Work Phone: [facility] 03-12-2021 COVID-19, mRNA, LNP- S, PF, 100mcg/0.5mL Dose John Johnson MD Work Phone: [facility] 03-11-2021 Moderna SARS-CoV-2 Vaccination Ria Snyder EDUCATIONAL ADVISOR Work Phone: [facility] 02-12-2021 COVID-19, mRNA, LNP- S, PF, 100mcg/0.5mL Dose John Johnson MD Work Phone: [facility] 02-11-2021 Moderna SARS-CoV-2 Vaccination Ria Snyder EDUCATIONAL ADVISOR Work Phone: [facility] 11-12-2020 pneumococcal conjuga te vaccine, 13 valent Ria Snyder EDUCATIONAL ADVISOR Work Phone: [facility] 09-17-2020 influenza, high dose seasonal, preservative-free Ria Snyder EDUCATIONAL ADVISOR Work Phone: [facility] 09-17-2020 Seasonal, quadrivale nt, recombinant, injectable influenza vaccine, preservative free John Johnson MD Work Phone: [facility] 09-17-2020 influenza virus vacc ine, unspecified formulation Ria Snyder EDUCATIONAL ADVISOR Work Phone: [facility] 08-30-2019 Seasonal, quadrivale nt, recombinant, injectable influenza vaccine, preservative free Riarandell Snyder EDUCATIONAL ADVISOR Work Phone: [facility] 08-29-2018 influenza, injectabl e, quadrivalent, preservative free Ria Snyder EDUCATIONAL ADVISOR Work Phone: [facility] 08-22-2015 influenza, seasonal, injectable, preservative free Ria Snyder EDUCATIONAL ADVISOR Work Phone: [facility] 08-13-2015 pneumococcal polysaccharide vaccine, 23 valent Riarandell Snyder EDUCATIONAL ADVISOR Work Phone: [facility] 08-21-2011 tetanus and diphther ia toxoids, adsorbed, preservative free, for adult use (5 Lf of tetanus toxoid and 2 Lf of diphtheria toxoid) Ria Snyder EDUCATIONAL ADVISOR Work Phone: [facility] 11-22-2009 zoster vaccine, live Greeulae n Snyder EDUCATIONAL ADVISOR Work Phone: [facility] 11-22-2009 zoster vaccine, unspecified formulation John Johnson MD Work Phone: [facility] 08-31-2003 pneumococcal polysaccharide vaccine, 23 valent Bia Cao MD Work Phone: [facility] Payers Date Payer Category Payer Medicaid [employer] MEDICARE A DVANTAGE [id number] 2023 Medicare [id number] 2022 Private Health Insurance 2021 Medicare O [employer] MEDICARE [id number] 2021 Medicare [id number] 2014 Medicare [id number] 1945 Unknown [id number] 2..840.1.904921.3.579.2. 175 1945 Unknown [id number] 2.0.1.257350.3.579.2. 175 1945 Unknown [id number] 2..840.1.972958.3.579.2. 1285 1945 Unknown [id number] 2.16.840.1.641380.3.579.2. 1285 1945 Unknown [id number] 2.16.840.1.869045.3.579.2. 1285 1945 Unknown [id number] 2.840.1.674953.3.579.2. 1286 1945 Unknown [id number] 2.840.1.297913.3.579.2. 128 1945 Unknown [id number] 2.840.1.005310.3.579.2. 128 1945 Unknown [id number] 2.840.1.286996.3.579.2. 128 1945 Unknown [id number] 2.840.1.904817.3.579.2. 128 1945 Unknown [id number] 2.840.1.450092.3.579.2. 1258 1945 Unknown [id number] .0.1.401170.3.579.2. 1258 1945 Unknown [id number] 2.840.1.434860.3.579.2. 1258 1945 Unknown [id number] .840.1.377687.3.579.2. 1258 1945 Unknown [id number] .840.1.069167.3.579.2. 9 1945 Unknown [id number] .0.1.346662.3.579.2. 1258 1945 Unknown [id number] .840.1.695634.3.579.2. 1259 1945 Unknown [id number] .840.1.902136.3.579.2. 9 1945 Unknown [id number] 2.840.1.549032.3.579.2. 9 1945 Unknown [id number] .840.1.878672.3.579.2. 1258 1945 Unknown [id number] 2.16.840.1.490449.3.579.2. 1259 -194 Unknown [id number] 2.16.840.1.309064.3.579.2. 9 1945 Unknown [id number] 2.16.840.1.834500.3.579.2. 9 1945 Unknown [id number] 2.16.840.1.886640.3.579.2. 1259 1945 Unknown [id number] 2.16.840.1.311855.3.579.2. 196 1945 Unknown [id number] 2.16.840.1.081863.3.579.2. 1945 Unknown [id number] 2.16.840.1.131453.3.579.2. 1945 Unknown [id number] 2.840.1.678510.3.579.2. 1945 Unknown [id number] 2.16840.1.422039.3.579.2. 1945 Unknown [id number] 2.16840.1.259945.3.579.2. 1945 Unknown [id number] 2.16.840.1.471171.3.579.2. 1945 Unknown [id number] 2.840.1.221723.3.579.2. 1945 Unknown [id number] 2.16.840.1.979283.3.579.2. 128 1945 Unknown [id number] 2.16840.1.642376.3.579.2. 1285 1945 Unknown [id number] 2.16.840.1.041828.3.579.2. 1285 1945 Unknown [id number] 2.16840.1.463922.3.579.2. 12804-29-194 Unknown [id number] 2.16.840.1.705849.3.579.2. 1286 194 Unknown [id number] 2.16840.1.537186.3.579.2. 1285 1945 Unknown [id number] 2.16840.1.072302.3.579.2. 1285 1945 Unknown [id number] 2.840.1.983093.3.579.2. 1285 1945 Unknown [id number] 2.840.1.133459.3.579.2. 1285 1945 Unknown [id number] 2.840.1.540300.3.579.2. 1285 1945 Unknown [id number] 2.0.1.768053.3.579.2. 1285 1945 Unknown [id number] 2.840.1.025449.3.579.2. 1285 1945 Unknown [id number] 2.0.1.373136.3.579.2. 1285 1945 Unknown [id number] 2.840.1.680717.3.579.2. 1285 1945 Unknown [id number] 2.840.1.194638.3.579.2. 1285 1945 Unknown [id number] 2.840.1.462753.3.579.2. 1286 1945 Unknown [id number] 2.840.1.226938.3.579.2. 1285 1945 Unknown [id number] 2.840.1.563904.3.579.2. 1285194 Unknown [id number] 2.840.1.371005.3.579.2. 1285 1945 Unknown [id number] 2.16.840.1.059295.3.579.2. 1286 Social History Date Type Detail Facility Start: 06-04-2023 End: 04-03-2024 Tobacco smoking status NHIS Never smoked tobacco [facility] Start: 06-04-2023 [...] on file [facility] Start: 01-27-2018 End: 07-20-2025 Alcohol intake Current non-drinker of alcohol (finding) [facility] National Score (1-10 0), lower number is lower risk Not on file [facility] Start: 07-10-2024 End: 07-10-2025 Alcoholic beverage intake Ex-drinker (finding) [facility] Do you belong to any clubs or organizations such as lutheran groups, unions, fraternal or athletic groups, or [...] History of tobacco use [facility] smoker [facility] Start: 1945 Sex assigned at Female [facility] Start: 06-27-2015 Sex Female (finding) [facility] Start: 05-22-2021 Gender identity Identifies as female gender (finding) [facility] Start: 05-22-2021 Sexual orientation Heterosexual (finding) [facility] Medical Equipment Procedure Code Equipment Code Equipment Origin al Text Equipment Identifier Dates Patch Dura 1x1in Drmtrx-[place] + Clgn Rgnrt Membr Strl - [id number] Start: 07-03-2021 Goals Date Patient Goal Desired Activity /State Personal health goal Personal health goal Comment on above: Formatting of this n ote might be different from the original. Evaluation of progress towards goal: safe transition from hospital to home with support of her friends/neighbors Clinical Notes 03-24-2024 to 07-25-2025 Telephone Encounter - Bia Cao MD - 07/25/2025 9:59 AM EDTTelephone Encounter - Bia Cao MD - 07/25/2025 9:59 AM EDTCmónica Palmer RN - 07/20/2025 1:00 PM EDTPatient Instructions Note Date & Type Note Facility 07-25-2025 Telephone encounter Note Approvals with refills [facility] 07-25-2025 Miscellaneous Notes Approvals with refills documented in this encounter [facility] 07-20-2025 History of Present illness Narrative Patient presents for Evenity injection as scheduled. Calcium reviewed with patient, WNL at 9.4, medication indicated Injection administered in Right upper arm SQ tissue without issue and Pt tolerates well Sites covered with band aids. Next injection scheduled at front office attendant Patient discharged in stable condition to private vehicle in care of her granddaughter. documented in this encounter [facility] 07-10-2025 History of Present illness Narrative Associated Problem(s): Stage 3b chronic kidney disease (CKD) (CMS-HCC) Orders: CBC and differential; Future Comprehensive metabolic panel; Future Associated Problem(s): Major depressive disorder, single episode, in full remission Orders: CBC and differential; Future Associated Problem(s): Age-related osteoporosis without current pathological fracture Orders: Vitamin D 25 hydroxy; Future Associated Problem(s): Asthma ([facility]) stable Associated Problem(s): Chronic idiopathic constipation Recommend metamucil Images from the original note were not included. Subjective ?Quick Links Last Note in Specialty Snapshot Edit RFV/CC Edit Screenings Current Meds Patient ID: Angela Ruth is a 80 y.o. female who presents for Follow-up. HPI History of Present Illness The patient presents for evaluation of diarrhea, migraines, and nasal drainage. She reports experiencing diarrhea, with 2 to 3 bowel movements per day during these episodes. On days without diarrhea, she has a formed stool every other day. She continues to consume dairy products, which do not seem to exacerbate her bowel issues. She has tried MiraLAX, but it also resulted in diarrhea. She used Metamucil a long time ago. She experiences migraines once or twice a month, which are managed with Ubrelvy. She is inquiring if she needs to see a neurologist for her migraines. A referral was placed at her last visit, but she has not heard from them. She reports nasal drainage upon waking up in the morning. Her mobility is good, and she is able to walk without difficulty. She has received her infusion. Her bladder function has been stable since her last infection. She experiences occasional headaches but does not consider them a significant concern. She has not had any recent cardiac imaging studies. She reports high stress levels due to family issues. 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 Her aircraft structural fitter is receiving counseling, but the situation remains challenging. Social History: Diet: She consumes dairy products. Living Condition: Lives with a aircraft structural fitter who recently lost a baby. Objective BP 122/68 (BP Location: Left arm, Patient Position: Sitting, BP Cuff Size: Adult) Pulse 71 Resp 18 Ht 5' 3 Wt 136 lb 6.4 oz SpO2 98% BMI 24.16 kg/m Physical Exam Constitutional: Appearance: Normal appearance. She is normal weight. HENT: Head: Normocephalic and atraumatic. Nose: Nose normal. Mouth/Throat: Mouth: Mucous membranes are moist. Eyes: Pupils: Pupils are equal, round, and reactive to light. Cardiovascular: Rate and Rhythm: Normal rate and regular rhythm. Heart sounds: Murmur heard. Pulmonary: Effort: Pulmonary effort is normal. Breath sounds: Normal breath sounds. No wheezing or rhonchi. Musculoskeletal: General: No swelling. Cervical back: Normal range of motion and neck supple. Right lower leg: No edema. Left lower leg: No edema. Comments: Thoracic kyphosis Ambulates with cane Skin: General: Skin is warm and dry. Findings: No rash. Neurological: Mental Status: She is alert and oriented to person, place, and time. Sensory: No sensory deficit. Gait: Gait normal. Psychiatric: Mood and Affect: Mood normal. Thought Content: Thought content normal. Judgment: Judgment normal. Physical Exam Respiratory: Clear to auscultation, no wheezing, rales or rhonchi Cardiovascular: Regular rate and rhythm, no murmurs, rubs, or gallops Assessment & Plan Stage 3b chronic kidney disease (CKD) ([facility]) Orders: CBC and differential; Future Comprehensive metabolic panel; Future Major depressive disorder, single episode, in full remission Orders: CBC and differential; Future Age-related osteoporosis without current pathological fracture Orders: Vitamin D 25 hydroxy; Future Moderate persistent asthma without complication (HCC) stable Diastolic dysfunction with chronic heart failure (HCC) stable Chronic idiopathic constipation Recommend metamucil Assessment & Plan 1. Diarrhea: - The diarrhea may be due to a minor stool backup. - She was advised to start taking Metamucil powder mixed with 8 ounces of water, which should help regulate her bowel movements. It might take 1 to 2 weeks for the Metamucil to even things out. 2. Migraines: - Migraines are well-managed with Ubrelvy, and she experiences them only once or twice a month. - As long as her migraines remain controlled, there is no need for a consultation with Dr. Abernathy. 3. Nasal drainage: - The most common cause of this would be dust mites on the pillows and mattresses. She was advised to use dust mite pillowcases and mattress covers to help control the dust mites. She was also recommended to use Flonase nasal spray to alleviate the drainage. 4. Health maintenance: - She has not had any recent cardiac imaging studies. - Blood work will be conducted today to assess her blood count, kidney, and liver function. Follow-up: A follow-up visit is scheduled in 4 months. documented in this encounter [facility] 06-26-2025 Telephone encounter Note Angela asking if she can stop in and leave a urine spc. - she has UTI symptoms - she said Dr Cao usually allows her to just come in and leave a urine spc . Please call and let her know when to come in [phone] [facility] 06-26-2025 Miscellaneous Notes Angela asking if she can stop in and leave a urine spc. - she has UTI symptoms - she said Dr Cao usually allows her to just come in and leave a urine spc . Please call and let her know when to come in [phone] documented in this encounter [facility] 06-13-2025 Evaluation + Plan note Associated Problem(s): Urge incontinence We will see her back in January with a KUB. She will call sooner if she has any problems. If she suspects an infection, she can contact the office so that we can have her stop at the lab for culture [facility] 06-13-2025 Miscellaneous Notes Associated Problem(s): Urge incontinence We will see her back in January with a KUB. She will call sooner if she has any problems. If she suspects an infection, she can contact the office so that we can have her stop at the lab for culture documented in this encounter [facility] 06-13-2025 History of Present illness Narrative Images from the original note were not included. [address] [place] [id number] Patient: Angela Ruth Date of : 1945 [...] concerns. Summary of old records: Notes from [facility] 02/27/25: The Myrbetriq was too expensive so [...] 07/07/2018 Performed by Alexander Leach MD at [facility] ENDOSCOPY COSMETIC SURGERY 1985 DISCECTOMY 1989 Partial L4-5 EGD 2001 EYE SURGERY 2014 FOOT SURGERY 2009 Reattachment of tendon left foot with bone graft HIP SURGERY 2003 Excision of bursa left hip HYSTERECTOMY 1983 INJECTION BLOCK EPIDURAL STEROID LUMBAR/SACRAL Left L 5,1 NR Left 12/20/2020 Performed by Shubham Clifton MD at [facility] BLOCK NERVE MEDIAL BRANCH right C 4/5,5/6 Right 05/22/2022 Performed by Shubham Clifton MD at [facility] BLOCK NERVE MEDIAL BRANCH right C 4/5,5/6 Right 04/17/2022 Performed by Shubham Clifton MD at [facility] CAUDAL EPIDURAL WITH CATHETER, STEROID N/A 03/07/2018 Performed by Shubham Clifton MD at [facility] LARGE JOINT BURSA: bilat hip Bilateral 12/10/2017 Performed by Shubham Clifton MD at [facility] MEDIAL BRANCH NERVE BLOCK Bilateral L 4/5, 5/1 Bilateral 06/28/2017 Performed by Shubham Clifton MD at [facility] MEDIAL BRANCH NERVE BLOCK Right L 2/3, 3/4 Right 12/08/2019 Performed by Shubham Clifton MD at [facility] MEDIAL BRANCH NERVE BLOCK RIGHT L23 34 Right 01/19/2020 Performed by Shubham Clifton MD at [facility] SI JOINT Bilateral 04/09/2017 Performed by Shubham Clifton MD at [facility] INJECTION SI JOINT Bilateral SI Joint Bilateral 05/31/2020 Performed by Shubham Clifton MD at [facility] INJECTION SI JOINT Left SI JOint Left 01/06/2019 Performed by Shubham Clifton MD at [facility] INJECTION SI JOINT Right SI Joint Right 06/09/2019 Performed by Shubham Clifton MD at [facility] SPINE TRANSFORAMINAL Left L 4, 5 NR Left 09/24/2017 Performed by Shubham Clifton MD at [facility] SPINE TRANSFORAMINAL Left L 5,1 Nroot Left 01/08/2023 Performed by Shubham Clifton MD at [facility] SPINE TRANSFORAMINAL Right L 5,1 Nroot Right 11/27/2022 Performed by Shubham Clifton MD at [facility] STEROID EPI 1 WITH SEDATION Left 5,1 NR Left 05/08/2019 Performed by Shubham Clifton MD at [facility] KNEE ARTHROSCOPY 2010, 2013 KNEE SURGERY 2010 2013 Arthroscopy bilateral/repair meniscus right X2, left X1 LAMINECTOMY LUMBAR FORAMENOTOMY MULTI LEVEL L1-2 RIGHT/L2-3 BILATERAL/LUMBAR DRAIN INSERTION N/A 07/03/2021 Performed by Corey Chacon MD at [facility] LAPAROTOMY OOPHERECTOMY Bilateral 1984 LUMBAR DISCECTOMY LUMBAR FUSION 2010 L3-5 LUMBAR LAMINECTOMY MICRO LUMBAR DISCECTOMY L5-S1/ FORAMINOTOMY L5-S1 Left 01/14/2017 Performed by Corey Chacon MD at [facility] OOPHORECTOMY 1982 OTHER SURGICAL HISTORY Knee Arthroscopy With Medial Meniscus Repair OTHER SURGICAL HISTORY Spinal Diskectomy RADIO FREQUENCY ABLATION Left L 4/5, 5/1 Left 12/02/2018 Performed by Shubham Clifton MD at [facility] RADIO FREQUENCY ABLATION Left L 4/5, 5/1 Left 07/30/2017 Performed by Shubham Clifton MD at [facility] RADIO FREQUENCY ABLATION Left SI joint Left 03/31/2019 Performed by Shubham Clifton MD at [facility] RADIO FREQUENCY ABLATION Right L2/3, 3/4 Right 03/29/2020 Performed by Shubham Clifton MD at [facility] RADIOFREQUENCY ABLATION SPINAL Left Si joint Left 05/07/2017 Performed by Shubham Clifton MD at [facility] RADIOFREQUENCY ABLATION SPINAL Right C /,/ Right 06/26/2022 Performed by Shubham Clifton MD at [facility] RADIOFREQUENCY ABLATION SPINAL RIGHT SI JOINT Right 05/21/2017 Performed by Shubham Clifton MD at [facility] RELEASE CARPAL TUNNEL Left 11/04/2021 Performed by Corey Chacon MD at [facility] SHOULDER SURGERY 2011 Right rotator cuff [...] mg total) by mouth in the morning. frksxxc-zrbrrujoiotvc-bhfvtpsu (EXCEDRIN MIGRAINE) 250-250-65 mg per tablet Take [...] hospitalization) Allergies: Indocin [indomethacin], Lincocin [lincomycin], Lincosamides, Xcvjjwaf-8-yj1 antimigraine agents, Adhesive, Eggshell membrane, Influenza virus [...] caffeine as well as addressing constipation with joxz-pod-tnfhwga agents. If no improvement can add beta [...] culture Follow-up: Dr. Kramer in February with KUMINH BURNETT This note was created with the assistance of a speech recognition program. While intending to generate a timely document that accurately reflects the content of the visit, no guarantee can be provided that every grammatical or spelling mistake has been or will be identified or corrected. Thank you for your understanding. MINH Gallagher 06/13/25 1422 [facility] History of Present illness Narrative Patient [...] of her granddaughter. documented in this encounter [facility] 05-16-2025 History of Present illness Narrative [...] of her granddaughter. documented in this encounter [facility] 05-08-2025 Telephone encounter Note prn [facility] [employer] Work Phone: 05-08-2025 Miscellaneous Notes prn Called pt to see if she is planning on scheduling with doctor regarding outgoing referral, pt said no, she does not want to schedule any appts. documented in this encounter [facility] 05-08-2025 Telephone encounter Note Called pt to see if she is planning on scheduling with doctor regarding outgoing referral, pt said no, she does not want to schedule any appts. T [facility] 04-18-2025 History of Present illness Narrative [...] (benign paroxysmal positional vertigo) Brain tumor (benign) ([facility]) Breast disorder 4 biopsies Bronchitis 01/01/2017 Cancer ([facility]) Basal cell Carpal tunnel syndrome Cataract [...] 07/07/2018 Performed by Alexander Leach MD at [facility] ENDOSCOPY COSMETIC SURGERY 1985 DISCECTOMY 1990 Partial L4-5 EGD 2001 EYE SURGERY 2015 FOOT SURGERY 2009 Reattachment of tendon left foot with bone graft HIP SURGERY 2003 Excision of bursa left hip HYSTERECTOMY 1984 INJECTION BLOCK EPIDURAL STEROID LUMBAR/SACRAL Left L 5,1 NR Left 12/20/2020 Performed by Shubham Clifton MD at [facility] IN[facility] BLOCK NERVE MEDIAL BRANCH right C 4/5,5/6 Right 05/22/2022 Performed by Shubham Clifton MD at [facility] BLOCK NERVE MEDIAL BRANCH right C 4/5,5/6 Right 04/17/2022 Performed by Shubham Clifton MD at [facility] INJECTION CAUDAL EPIDURAL WITH CATHETER, STEROID N/A 03/07/2018 Performed by Shubham Clifton MD at [facility] LARGE JOINT BURSA: bilat hip Bilateral 12/10/2017 Performed by Shubham Clifton MD at [facility] MEDIAL BRANCH NERVE BLOCK Bilateral L 4/5, 5/1 Bilateral 06/28/2017 Performed by Shubham Clifton MD at [facility] MEDIAL BRANCH NERVE BLOCK Right L 2/3, 3/4 Right 12/08/2019 Performed by Shubham Clifton MD at [facility] INJECTION MEDIAL BRANCH NERVE BLOCK RIGHT L23 34 Right 01/19/2020 Performed by Shubham Clifton MD at [facility] INJECTION SI JOINT Bilateral 04/09/2017 Performed by Shubham Clifton MD at [facility] INJECTION SI JOINT Bilateral SI Joint Bilateral 05/31/2020 Performed by Shubham Clifton MD at [facility] INJECTION SI JOINT Left SI JOint Left 01/06/2019 Performed by Shubham Clifton MD at [facility] INJECTION SI JOINT Right SI Joint Right 06/09/2019 Performed by Shubham Clifton MD at [facility] SPINE TRANSFORAMINAL Left L 4, 5 NR Left 09/24/2017 Performed by Shubham Clifton MD at [facility] INJECTION SPINE TRANSFORAMINAL Left L 5,1 Nroot Left 01/08/2023 Performed by Shubham Clifton MD at [facility] SPINE TRANSFORAMINAL Right L 5,1 Nroot Right 11/27/2022 Performed by Shubham Clifton MD at [facility] STEROID EPI 1 WITH SEDATION Left 5,1 NR Left 05/08/2019 Performed by Shubham Clifton MD at [facility] KNEE ARTHROSCOPY 2013 KNEE SURGERY 2010 2013 Arthroscopy bilateral/repair meniscus right X2, left X1 LAMINECTOMY LUMBAR FORAMENOTOMY MULTI LEVEL L1-2 RIGHT/L2-3 BILATERAL/LUMBAR DRAIN INSERTION N/A 07/03/2021 Performed by Corey Chacon MD at [facility] LAPAROTOMY OOPHERECTOMY Bilateral 1984 LUMBAR DISCECTOMY LUMBAR FUSION 2010 L3-5 LUMBAR LAMINECTOMY MICRO LUMBAR DISCECTOMY L5-S1/ FORAMINOTOMY L5-S1 Left 01/14/2017 Performed by Corey Chacon MD at [facility] OOPHORECTOMY 1982 OTHER SURGICAL HISTORY Knee Arthroscopy With Medial Meniscus Repair OTHER SURGICAL HISTORY Spinal Diskectomy RADIO FREQUENCY ABLATION Left L 4/5, 5/1 Left 12/02/2018 Performed by Shubham Clifton MD at [facility] RADIO FREQUENCY ABLATION Left L 4/5, 5/1 Left 07/30/2017 Performed by Shubham Clifton MD at [facility] RADIO FREQUENCY ABLATION Left SI joint Left 03/31/2019 Performed by Shubham Clifton MD at [facility] RADIO FREQUENCY ABLATION Right L2/3, 3/4 Right 03/29/2020 Performed by Shubham Clifton MD at [facility] RADIOFREQUENCY ABLATION SPINAL Left Si joint Left 05/07/2017 Performed by Shubham Clifton MD at [facility] RADIOFREQUENCY ABLATION SPINAL Right C 4/5,5/6 Right 06/26/2022 Performed by Shubham Clifton MD at [facility] RADIOFREQUENCY ABLATION SPINAL RIGHT SI JOINT Right 05/21/2017 Performed by Shubham Clifton MD at [facility] RELEASE CARPAL TUNNEL Left 11/04/2021 Performed by Corey Chacon MD at [facility] SHOULDER SURGERY 2011 Right rotator cuff [...] mouth in the morning., Disp: , Rfl: rccrqfy-ggxuwwpimfdtk-zjdpjrjs (EXCEDRIN MIGRAINE) 250-250-65 mg per tablet, Take [...] Hypotension fainting Lincocin [Lincomycin] Anaphylaxis Lincosamides Anaphylaxis Soepuqks-[id number] Antimigraine Agents History of cardiovascular and cerebrovascular [...] with doctor John Johnson MD, MPH, [facility] [address] [facility] [address] [facility] [address] Dept: [phone] FAX: [phone] documented in this encounter [facility] 04-18-2025 Instructions John Johnson MD - 04/18/2025 1:30 PM EDT December 08, 2025 DEXA documented in this encounter [facility] 04-18-2025 History of Present illness Narrative Pt here for evenity injection as scheduled. Denies any issues with previous injections. Calcium 9.5. Evenity given SQ to bilat upper arms. Pt tolerated well. Treatment calendar given. Pt dc'd in stable ambulatory condition. documented in this encounter [facility] 04-09-2025 History of Present illness Narrative Images from the original note were not included. Angela uRth is a 79 y.o. female presents with chief complaint of Follow-up HPI: HPI History of Present Illness The patient presents for evaluation of migraines, a recent fall, carpal tunnel syndrome, and arthritis. 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 Edwards [facility] LUMBAR EPIDURAL INJECTION 12/20/2020 Dr Clifton RADIOFREQUENCY ABLATION 03/29/2020 lumbar ROTATOR CUFF REPAIR Right 2012 SPINAL FUSION 2010 L3-L5 TONSILLECTOMY 1953 TRIGGER FINGER RELEASE Right 1995 release of Dequervan's tendon - R wrist TRIGGER FINGER RELEASE Right 05/16/2018 FAMILY HISTORY: Family History Problem Relation Name Age of Onset Hypertension Mother Chloe Baer Cancer Mother Chloe Baer COPD Father Dre Beardrebekah Cancer Father Dre Beardrebekah Arthritis Father Dre Keyur Asthma Father Dre Keyur Stroke Paternal Grandfather Tra Keyur Diabetes Paternal Grandmother Sandra Baer Hearing loss [...] Depression: Not at risk (02/12/2025) Received from [employer] PHQ-2 Total Score: 2 REVIEW OF SYMPTOMS: [...] hypertension (CMS/HCC) Overview Managed by dr cifuentes Relevant Medications lisinopril-hydroCHLOROthiazide 20-12.5 MG tablet Other Visit Diagnoses Intractable migraine with aura without status migrainosus (CMS/HCC) - Primary Relevant Orders Ambulatory referral to [...] in 3 months. documented in this encounter [facility] 03-22-2025 Telephone encounter Note Approvals with refills [facility] 03-22-2025 Miscellaneous Notes Approvals with refills documented in this encounter [facility] 03-21-2025 History of Present illness Narrative Pt here for evenity injection as scheduled. Denies any issues with previous injections. Calcium 9.6. Evenity given SQ to bilat upper arms. Pt tolerated well. Treatment calendar given. Pt dc'd in stable ambulatory condition. documented in this encounter [facility] 02-27-2025 Evaluation + Plan note Associated Problem(s): Urge incontinence We discussed cranberry/D mannose supplements, topical estrogen cream, methenamine, or a prophylactic antibiotic. [facility] 02-27-2025 Miscellaneous Notes Associated Problem(s): Urge incontinence We discussed cranberry/D mannose supplements, topical estrogen cream, methenamine, or a prophylactic antibiotic. documented in this encounter [facility] 02-27-2025 History of Present illness Narrative Images from the original note were not included. [address] [facility] [address] Patient: Angela Ruth Date of : 1945 [...] (benign paroxysmal positional vertigo) Brain tumor (benign) ([facility]) Breast disorder 4 biopsies Bronchitis 01/01/2017 Cancer ([facility]) Basal cell Carpal tunnel syndrome Cataract [...] 07/07/2018 Performed by Alexander Leach MD at [facility] ENDOSCOPY COSMETIC SURGERY 1984 DISCECTOMY 1989 Partial L4-5 EGD 2001 EYE SURGERY 2014 FOOT SURGERY 2009 Reattachment of tendon left foot with bone graft HIP SURGERY 2003 Excision of bursa left hip HYSTERECTOMY 1983 INJECTION BLOCK EPIDURAL STEROID LUMBAR/SACRAL Left L 5,1 NR Left 12/20/2020 Performed by Shubham Clifton MD at [facility] BLOCK NERVE MEDIAL BRANCH right C 4/5,5/6 Right 05/22/2022 Performed by Shubham Clifton MD at [facility] IN[facility] BLOCK NERVE MEDIAL BRANCH right C 4/5,5/6 Right 04/17/2022 Performed by Shubham Clifton MD at [facility] INJECTION CAUDAL EPIDURAL WITH CATHETER, STEROID N/A 03/07/2018 Performed by Shubham Clifton MD at [facility] INJECTION LARGE JOINT BURSA: bilat hip Bilateral 12/10/2017 Performed by Shubham Clifton MD at [facility] MEDIAL BRANCH NERVE BLOCK Bilateral L 4/5, 5/1 Bilateral 06/28/2017 Performed by Shubham Clifton MD at [facility] MEDIAL BRANCH NERVE BLOCK Right L 2/3, 3/4 Right 12/08/2019 Performed by Shubham Clifton MD at [facility] MEDIAL BRANCH NERVE BLOCK RIGHT L23 34 Right 01/19/2020 Performed by Shubham Clifton MD at [facility] SI JOINT Bilateral 04/09/2017 Performed by Shubham Clifton MD at [facility] SI JOINT Bilateral SI Joint Bilateral 05/31/2020 Performed by Shubham Clifton MD at [facility] SI JOINT Left SI JOint Left 01/06/2019 Performed by Shubham Clifton MD at [facility] SI JOINT Right SI Joint Right 06/09/2019 Performed by Shubham Clifton MD at [facility] INJECTION SPINE TRANSFORAMINAL Left L 4, 5 NR Left 09/24/2017 Performed by Shubham Clifton MD at [facility] INJECTION SPINE TRANSFORAMINAL Left L 5,1 Nroot Left 01/08/2023 Performed by Shubham Clifton MD at [facility] INJECTION SPINE TRANSFORAMINAL Right L 5,1 Nroot Right 11/27/2022 Performed by Shubham Clifton MD at [facility] INJECTION STEROID EPI 1 WITH SEDATION Left 5,1 NR Left 05/08/2019 Performed by Shubham Clifton MD at [facility] KNEE ARTHROSCOPY 2010, 2013 KNEE SURGERY 2010 2013 Arthroscopy bilateral/repair meniscus right X2, left X1 LAMINECTOMY LUMBAR FORAMENOTOMY MULTI LEVEL L1-2 RIGHT/L2-3 BILATERAL/LUMBAR DRAIN INSERTION N/A 07/03/2021 Performed by Corey Chacon MD at [facility] LAPAROTOMY OOPHERECTOMY Bilateral 1984 LUMBAR DISCECTOMY LUMBAR FUSION 2009 L3-5 LUMBAR LAMINECTOMY MICRO LUMBAR DISCECTOMY L5-S1/ FORAMINOTOMY L5-S1 Left 01/14/2017 Performed by Corey Chacon MD at [facility] OOPHORECTOMY 1982 OTHER SURGICAL HISTORY Knee Arthroscopy With Medial Meniscus Repair OTHER SURGICAL HISTORY Spinal Diskectomy RADIO FREQUENCY ABLATION Left L 4/5, 5/1 Left 12/02/2018 Performed by Shubham Clifton MD at [facility] RADIO FREQUENCY ABLATION Left L 4/5, 5/1 Left 07/30/2017 Performed by Shubham Clifton MD at [facility] RADIO FREQUENCY ABLATION Left SI joint Left 03/31/2019 Performed by Shubham Clifton MD at [facility] RADIO FREQUENCY ABLATION Right L2/3, 3/4 Right 03/29/2020 Performed by Shubham Clifton MD at [facility] RADIOFREQUENCY ABLATION SPINAL Left Si joint Left 05/07/2017 Performed by Shubham Clifton MD at [facility] RADIOFREQUENCY ABLATION SPINAL Right C 4/5,5/6 Right 06/26/2022 Performed by Shubham Clifton MD at [facility] RADIOFREQUENCY ABLATION SPINAL RIGHT SI JOINT Right 05/21/2017 Performed by Shubham Clifton MD at [facility] RELEASE CARPAL TUNNEL Left 11/04/2021 Performed by Corey Chacon MD at [facility] SHOULDER SURGERY 2012 Right rotator cuff SKIN BIOPSY 2000 SPINE SURGERY 1990,2006,2018, 2020 STEROID INJECTION KNEE Right 04/2017 SYNVISC [...] mg total) by mouth in the morning. axkzvxn-prokmoufmwsrp-ywhfwaot (EXCEDRIN MIGRAINE) 250-250-65 mg per tablet Take [...] hospitalization) Allergies: Indocin [indomethacin], Lincocin [lincomycin], Lincosamides, Kdjtqbxr-8-va9 antimigraine agents, Adhesive, Eggshell membrane, Influenza virus [...] caffeine as well as addressing constipation with sjvv-set-tniutfo agents. If no improvement can add beta [...] Kramer or me in 3-4 months in [place] MINH GALLAGHER This note was created with the assistance of a speech recognition program. While intending to generate a timely document that accurately reflects the content of the visit, no guarantee can be provided that every grammatical or spelling mistake has been or will be identified or corrected. Thank you for your understanding. MINH Gallagher 02/27/25 1515 documented in this encounter [facility] 02-27-2025 Instructions MINH Gallagher - 02/27/2025 [...] want to do. documented in this encounter [facility] 02-19-2025 Telephone encounter Note Approvals with refills [facility] 02-19-2025 Miscellaneous Notes Approvals with refills documented in this encounter [facility] 02-16-2025 History of Present illness Narrative Patient here for Evenity injection Vitals WNL Injection given sub q in the Right arm Patient tolerated well Calendar given for next injection documented in this encounter [facility] 02-12-2025 Telephone encounter Note Nancy- pharmacy from [facility] calling to let you know that they received rx for remeron and they cannot fill due to drug interaction with amitriptyline prescribed by Dr. Dorsey. It is a category X- cannot fill. Increased risk of serotonin syndrome. She has been on amitriptyline for years. Please advise jil. Thank you. [facility] 02-12-2025 Miscellaneous Notes Nancy- pharmacy from [facility] calling to let you know that they received rx for remeron and they cannot fill due to drug interaction with amitriptyline prescribed by Dr. Dorsey. It is a category X- cannot fill. Increased risk of serotonin syndrome. She has been on amitriptyline for years. Please advise jil. Thank you. documented in this encounter [facility] 02-12-2025 History of Present illness Narrative [...] mg TID Inderal (tremors) Midrin Migraine cocktails Brainerd PRN Occipital nerve blocks (last 03/2021) Propranolol [...] vs meningioma). He referred her to the [facility] for evaluation for possible gamma knife [...] (benign paroxysmal positional vertigo) Brain tumor (benign) ([facility]) Breast disorder 4 biopsies Bronchitis 01/01/2017 Cancer ([facility]) Basal cell Carpal tunnel syndrome Cataract [...] 07/07/2018 Performed by Alexander Leach MD at [facility] ENDOSCOPY COSMETIC SURGERY 1985 DISCECTOMY 1990 Partial L4-5 EGD 2001 EYE SURGERY 2015 FOOT SURGERY 2009 Reattachment of tendon left foot with bone graft HIP SURGERY 2004 Excision of bursa left hip HYSTERECTOMY 1984 INJECTION BLOCK EPIDURAL STEROID LUMBAR/SACRAL Left L 5,1 NR Left 12/20/2020 Performed by Shubham Clifton MD at [facility] INJECTION BLOCK NERVE MEDIAL BRANCH right C 4/5,5/6 Right 05/22/2022 Performed by Shubham Clifton MD at [facility] IN[facility] BLOCK NERVE MEDIAL BRANCH right C 4/5,5/6 Right 04/17/2022 Performed by Shubham Clifton MD at [facility] CAUDAL EPIDURAL WITH CATHETER, STEROID N/A 03/07/2018 Performed by Shubham Clifton MD at [facility] LARGE JOINT BURSA: bilat hip Bilateral 12/10/2017 Performed by Shubham Clifton MD at [facility] MEDIAL BRANCH NERVE BLOCK Bilateral L 4/5, 5/1 Bilateral 06/28/2017 Performed by Shubham Clifton MD at [facility] MEDIAL BRANCH NERVE BLOCK Right L 2/3, 3/4 Right 12/08/2019 Performed by Shubham Clifton MD at [facility] MEDIAL BRANCH NERVE BLOCK RIGHT L23 34 Right 01/19/2020 Performed by Shubham Clifton MD at [facility] SI JOINT Bilateral 04/09/2017 Performed by Shubham Clifton MD at [facility] SI JOINT Bilateral SI Joint Bilateral 05/31/2020 Performed by Shubham Clifton MD at [facility] SI JOINT Left SI JOint Left 01/06/2019 Performed by Shubham Clifton MD at [facility] SI JOINT Right SI Joint Right 06/09/2019 Performed by Shubham Clifton MD at [facility] SPINE TRANSFORAMINAL Left L 4, 5 NR Left 09/24/2017 Performed by Shubham Clifton MD at [facility] SPINE TRANSFORAMINAL Left L 5,1 Nroot Left 01/08/2023 Performed by Shubham Clifton MD at [facility] SPINE TRANSFORAMINAL Right L 5,1 Nroot Right 11/27/2022 Performed by Shubham Clifton MD at [facility] STEROID EPI 1 WITH SEDATION Left 5,1 NR Left 05/08/2019 Performed by Shubham Clifton MD at [facility] KNEE ARTHROSCOPY 2010, 2013 KNEE SURGERY 2010 2013 Arthroscopy bilateral/repair meniscus right X2, left X1 LAMINECTOMY LUMBAR FORAMENOTOMY MULTI LEVEL L1-2 RIGHT/L2-3 BILATERAL/LUMBAR DRAIN INSERTION N/A 07/03/2021 Performed by Corey Chacon MD at [facility] LAPAROTOMY OOPHERECTOMY Bilateral 1984 LUMBAR DISCECTOMY LUMBAR FUSION 2010 L3-5 LUMBAR LAMINECTOMY MICRO LUMBAR DISCECTOMY L5-S1/ FORAMINOTOMY L5-S1 Left 01/14/2017 Performed by Corey Chacon MD at [facility] OOPHORECTOMY 1982 OTHER SURGICAL HISTORY Knee Arthroscopy With Medial Meniscus Repair OTHER SURGICAL HISTORY Spinal Diskectomy RADIO FREQUENCY ABLATION Left L 4/5, 5/1 Left 12/02/2018 Performed by Shubham Clifton MD at [facility] RADIO FREQUENCY ABLATION Left L 4/5, 5/1 Left 07/30/2017 Performed by Shubham Clifton MD at [facility] RADIO FREQUENCY ABLATION Left SI joint Left 03/31/2019 Performed by Shubham Clifton MD at [facility] RADIO FREQUENCY ABLATION Right L2/3, 3/4 Right 03/29/2020 Performed by Shubham Clifton MD at [facility] RADIOFREQUENCY ABLATION SPINAL Left Si joint Left 05/07/2017 Performed by Shubham Clifton MD at [facility] RADIOFREQUENCY ABLATION SPINAL Right C 4/5,5/ Right 06/26/2022 Performed by Shubham Clifton MD at [facility] RADIOFREQUENCY ABLATION SPINAL RIGHT SI JOINT Right 05/21/2017 Performed by Shubham Clifton MD at [facility] RELEASE CARPAL TUNNEL Left 11/04/2021 Performed by Corey Chacon MD at [facility] SHOULDER SURGERY 2011 Right rotator cuff [...] Resource Strain: Low Risk (04/02/2024) Received from [facility] Overall Financial Resource Strain (CARDIA) Difficulty of Paying Living Expenses: Not very hard Food Insecurity: No Food Insecurity (02/12/2025) Hunger Screening Food Insecurity - Worry: Never True Food Insecurity - Inability: Never True Transportation Needs: Unknown (04/02/2024) Received from [facility] PRAPARE - Transportation Lack of Transportation (Medical): Not on file Lack of Transportation (Non-Medical): No Physical Activity: Insufficiently Active (04/02/2024) Received from [facility] Exercise Vital Sign Days of Exercise per Week: 3 days Minutes of Exercise per Session: 10 min Stress: Stress Concern Present (04/02/2024) Received from [facility] [employer] - Occupational Stress Questionnaire Feeling of Stress : Rather much Social Connections: Moderately Integrated (04/02/2024) Received from [facility] Social Connection and Isolation Panel [NHANES] Frequency of Communication with Friends and Family: More than three times a week Frequency of Social Gatherings with Friends and Family: More than three times a week Attends Sabianism Services: More than 4 times per year Active Member of Clubs or Organizations: Yes Attends Club or Organization Meetings: More than 4 times per year Marital Status: Interpersonal Safety: Not on file Housing Instability: High Risk (04/02/2024) Received from [facility] Housing Stability Vital Sign Unable to [...] mg total) by mouth in the morning. xhevjmy-vuwcjguoobvgt-qbyxpxyn (EXCEDRIN MIGRAINE) 250-250-65 mg per tablet Take [...] facility-administered medications on file prior to visit. OAS was reviewed by CHACE Rayo. Objective: BP [...] vs meningioma). He referred her to the [facility] for evaluation for possible gamma knife [...] procedures Referring and communicating with other health customer care voice consultant (not separately reported) Documenting clinical information in the electronic or other health record Independently interpreting results (not separately reported) and communicating results to the patient/family/caregiver Care coordination (not separately reported) - Yoanna Dorsey DNP, CHACE 02/12/25 8:31 AM CHACE Rayo 02/12/25 0831 documented in this encounter [employer] 02-12-2025 Instructions CHACE Rayo - 02/12/2025 8:00 [...] (VIDYO is fine) documented in this encounter [facility] 02-09-2025 Miscellaneous Notes ----- Message from HAVEN Osullivan sent at 02/09/2025 8:21 AM EDT ----- Regarding: RE: re schedule appt Really any day is fine to reschedule except for Wednesday. ----- Message ----- From: Blanche Aviles CMA Sent: 02/09/2025 7:43 AM EDT To: [facility] Subject: re schedule appt Pt called and said that she needs to reschedule her appt for today and when someone calls she can explain when she needs it rescheduled for. Pt left a voicemail yesterday after hours. I can call and reschedule her if you let me know what's available. documented in this encounter [facility] 02-09-2025 Telephone encounter Note ----- Message from HAVEN Osullivan sent at 02/09/2025 8:21 AM EDT ----- Regarding: RE: re schedule appt Really any day is fine to reschedule except for Wednesday. ----- Message ----- From: Blanche Aviles CMA Sent: 02/09/2025 7:43 AM EDT To: [facility] Subject: re schedule appt Pt called and said that she needs to reschedule her appt for today and when someone calls she can explain when she needs it rescheduled for. Pt left a voicemail yesterday after hours. I can call and reschedule her if you let me know what's available. [facility] 01-23-2025 History of Present illness Narrative [...] 3 APPENDECTOMY 1965 BREAST BIOPSY x4 - [id number] CHOLECYSTECTOMY 2002 EYE SURGERY 01/21/2023 retinal repair [facility] HEMANGIOMA EXCISION 1946 from upper back HYSTERECTOMY 1984 KNEE SURGERY Bilateral arthroscopic knee surgery x3 (Rx2, Lx1) ([id number]) LAPAROTOMY OOPHERECTOMY 1985 LUMBAR DISCECTOMY 1989 partial LUMBAR DISCECTOMY 01/14/2017 Microdiscetomy L5-S1 LUMBAR DISCECTOMY 07/03/2021 L1-2 partial discectomy, L1-2, L2-3 cleaning out of stenosis in the spinal canal DR. Edwards [facility] LUMBAR EPIDURAL INJECTION 12/20/2020 Dr Clifton [...] Jluis Baer Early natural Mother's Sister Lorna Cyndie Mental illness Neg Hx Drug abuse Neg [...] Depression - At risk (07/13/2024) Received from [employer] PHQ-2 Total Score: 3 REVIEW OF SYMPTOMS: [...] Assessment & Plan documented in this encounter [facility] 01-15-2025 History of Present illness Narrative [...] 1953 APPENDECTOMY 1965 BREAST BIOPSY x4 - [id number] CHOLECYSTECTOMY 2002 EYE SURGERY 01/21/2023 retinal repair [facility] HEMANGIOMA EXCISION 1946 from upper back HYSTERECTOMY 1984 KNEE SURGERY Bilateral arthroscopic knee surgery x3 (Rx2, Lx1) ([id number]) LAPAROTOMY OOPHERECTOMY 1985 LUMBAR DISCECTOMY 1989 partial LUMBAR DISCECTOMY 01/14/2017 Microdiscetomy L5-S1 LUMBAR DISCECTOMY 07/03/2021 L1-2 partial discectomy, L1-2, L2-3 cleaning out of stenosis in the spinal canal DR. Edwards [facility] LUMBAR EPIDURAL INJECTION 12/20/2020 Dr Clifton [...] Depression - At risk (07/13/2024) Received from [employer] PHQ-2 Total Score: 3 REVIEW OF SYMPTOMS: [...] in 1 month. documented in this encounter [facility] 01-11-2025 History of Present illness Narrative Patient does not have a current calcium completed Patient will have calcium done and will call to re-schedule documented in this encounter [facility] [email or web address] 01-09-2025 History of Present illness Narrative Images from the original note were not included. Subjective Patient ID: Angela Ruth is a 79 y.o. female who presents for Hoarseness Pt reports a many year h/o trouble with her voice. 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 [...] Father Dre Baer Stroke Paternal Grandfather Tra Beardrebekah Diabetes Paternal Grandmother Sandra Keyur Hearing loss Paternal Grandmother Sandra Keyur Stroke Paternal Grandmother Sandra Keyur Alcohol abuse Father's Brother Jesús Baer Cancer Mother's Sister Jannette Meganmariel Cancer Mother's Sister Nisa Dunham Cancer Mother's Sister Janet Meija COPD Father's Brother Jluis Beardrebekah Early natural Mother's Sister Lorna Agee Mental illness Neg Hx Drug abuse Neg Hx Active Ambulatory Problems Diagnosis Date Noted Trochanteric bursitis of both hips 11/03/2017 Spinal stenosis of lumbar region 08/14/2011 Primary insomnia 06/04/2023 Primary osteoarthritis of right knee 09/17/2021 Recurrent falls 11/01/2017 Other specified depressive episodes (CMS/HCC) 02/12/2017 Nocturnal leg cramps 06/04/2023 Mixed stress and urge urinary incontinence 10/29/2020 Major depressive disorder, single episode, in full remission ([facility]) 10/24/2019 Hyperlipidemia (CMS/[facility]) 11/08/2015 History of lumbar fusion 12/11/2015 History of depression 2018 Gastroesophageal reflux disease without esophagitis 09/15/2021 Herniation of lumbar intervertebral disc with radiculopathy 01/07/2017 Essential tremor 12/12/2018 Essential hypertension (CMS/HCC) 03/13/2013 Degeneration of lumbosacral intervertebral disc 08/14/2016 Chronic idiopathic constipation 07/10/2019 Bilateral occipital neuralgia 03/02/2019 Asthma (CMS/[facility]) 03/26/2016 Age-related osteoporosis without current pathological fracture (CMS/[facility]) 06/04/2023 Acquired hypothyroidism ([facility]) 09/29/2019 1st degree AV block 06/10/2021 Bilateral nephrolithiasis 03/02/2023 Stage 3b chronic kidney disease (CKD) ([facility]) 06/04/2023 History of falling 11/04/2023 Lung nodule 02/15/2024 Brain lesion 02/15/2024 Balance problem 06/12/2019 Impingement syndrome of right shoulder 08/14/2011 Resolved Ambulatory Problems Diagnosis Date Noted Adjustment disorder with anxiety ([facility]) 05/04/2023 Migraine without status migrainosus, not intractable ([facility]) 06/04/2023 Lumbago with sciatica, right side 06/04/2023 Disc displacement, lumbar 05/05/2019 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 01/14/2017 Cervical spondylosis without myelopathy 04/01/2022 Age related osteoporosis ([facility]) 12/19/2019 Past Medical History: Diagnosis Date Allergic Allergic rhinitis Back pain Basal cell carcinoma Benign essential hypertension ([facility]) Bilateral carpal tunnel syndrome Chronic kidney disease Chronic pain Depression (CMS/HCC) GERD (gastroesophageal reflux disease) Sky's thyroiditis (CMS/HCC) HL (hearing loss) Hypothyroidism (CMS/HCC) Laryngitis Migraine (CMS/[facility]) Neuromuscular disorder (CMS/[facility]) Osteoarthritis Osteopenia Osteoporosis (CMS/[facility]) Scoliosis Subdural hematoma (CMS/[facility]) 12/2017 Urinary tract infection Vertigo Past Surgical History: Procedure Laterality Date ADENOIDECTOMY 3 APPENDECTOMY 1965 BREAST BIOPSY x4 - [id number] CHOLECYSTECTOMY 2001 EYE SURGERY 01/21/2023 retinal repair [facility] HEMANGIOMA EXCISION 1946 from upper back HYSTERECTOMY 1984 KNEE SURGERY Bilateral arthroscopic knee surgery x3 (Rx2, Lx1) ([id number]) LAPAROTOMY OOPHERECTOMY 1985 LUMBAR DISCECTOMY 1989 partial LUMBAR DISCECTOMY 01/14/2017 Microdiscetomy L5-S1 LUMBAR DISCECTOMY 07/03/2021 L1-2 partial discectomy, L1-2, L2-3 cleaning out of stenosis in the spinal canal DR. Edwards [facility] LUMBAR EPIDURAL INJECTION 12/20/2020 Dr Clifton [...] will refer pt to [facility] at [facility] for tx. Consider laryngology referral for TVF augmentation if no help documented in this encounter [facility] 01-01-2025 History of Present illness Narrative Patient here for UA Dip. Dip added to chart and sent for culture documented in this encounter [facility] 01-01-2025 Telephone encounter Note Are you able to have her come in and give us a specimen in the office for a nurse visit? We can run a test in the office during the nurse visit and send for culture and sensitivity if needed but we will need her to get the specimen while in the office during the nurse visit. [facility] 01-01-2025 Miscellaneous Notes Are you able [...] her know :) documented in this encounter [facility] 01-01-2025 Telephone encounter Note Pt is [...] her back and let her know :) [facility] 12-26-2024 History of Present illness Narrative [...] Flowsheet Row Office Visit from 12/26/2024 in [facility]NR FM with Bia Cao MD Hospital Information ED, Hospital or Retirement Facility Discharge? ED Patient has been contacted within 1 week of being seen in the ED Yes Diagnosis Fall Discharge Date 12/23/24 Discharged To: Home Setting Discharge Hospital [facility] Engagement Call Start Time 925 Admission [...] 1953 APPENDECTOMY 1965 BREAST BIOPSY x4 - [phone] CHOLECYSTECTOMY 2002 EYE SURGERY 01/21/2023 retinal repair [facility] HEMANGIOMA EXCISION 1946 from upper back HYSTERECTOMY 1984 KNEE SURGERY Bilateral arthroscopic knee surgery x3 (Rx2, Lx1) ([id number]) LAPAROTOMY OOPHERECTOMY 1984 LUMBAR DISCECTOMY 1989 partial LUMBAR DISCECTOMY 01/14/2017 Microdiscetomy L5-S1 LUMBAR DISCECTOMY 07/03/2021 L1-2 partial discectomy, L1-2, L2-3 cleaning out of stenosis in the spinal canal DR. Edwards [facility] LUMBAR EPIDURAL INJECTION 12/20/2020 Dr Clifton [...] Depression - At risk (07/13/2024) Received from [employer] PHQ-2 Total Score: 3 REVIEW OF SYMPTOMS: [...] Medication change (Remeron) documented in this encounter [facility] 12-25-2024 Telephone encounter Note Sorry I forgot to add I scheduled her an appt. [facility] 12-25-2024 Miscellaneous Notes Sorry I forgot to add I scheduled her an appt. Please call to check on her This is Angela Ruth. My phone number is [phone] for I am calling to let Dr Sutherland know that I fell on Wednesday night and was seen in, ER. Thank you very much, bye. documented in this encounter [facility] 12-25-2024 Telephone encounter Note Please call to check on her [facility] 12-25-2024 Telephone encounter Note This is Angela Ruth. My phone number is [phone] for I am calling to let Dr Sutherland know that I fell on Wednesday night and was seen in, ER. Thank you very much, bye. [facility] 12-19-2024 History of Present illness Narrative Images from the original note were not included. [id number] [place] [address] A [facility] [id number] Patient: Angela Ruth Date of : 1945 [...] 07/07/2018 Performed by Alexander Leach MD at [facility] ENDOSCOPY COSMETIC SURGERY 1984 DISCECTOMY 1989 Partial L4-5 EGD 2001 EYE SURGERY 2014 FOOT SURGERY 2009 Reattachment of tendon left foot with bone graft HIP SURGERY 2003 Excision of bursa left hip HYSTERECTOMY 1984 INJECTION BLOCK EPIDURAL STEROID LUMBAR/SACRAL Left L 5,1 NR Left 12/20/2020 Performed by Shubham Clifton MD at [facility] INJECTION BLOCK NERVE MEDIAL BRANCH right C 4/5,5/6 Right 05/22/2022 Performed by Shubham Clifton MD at [facility] INJECTION BLOCK NERVE MEDIAL BRANCH right C 4/5,5/6 Right 04/17/2022 Performed by Shubham Clifton MD at [facility] CAUDAL EPIDURAL WITH CATHETER, STEROID N/A 03/07/2018 Performed by Shubham Clifton MD at [facility] LARGE JOINT BURSA: bilat hip Bilateral 12/10/2017 Performed by Shubham Clifton MD at [facility] MEDIAL BRANCH NERVE BLOCK Bilateral L 4/5, 5/1 Bilateral 06/28/2017 Performed by Shubham Clifton MD at [facility] INJECTION MEDIAL BRANCH NERVE BLOCK Right L 2/3, 3/4 Right 12/08/2019 Performed by Shubham Clifton MD at [facility] MEDIAL BRANCH NERVE BLOCK RIGHT L23 34 Right 01/19/2020 Performed by Shubham Clifton MD at [facility] INJECTION SI JOINT Bilateral 04/09/2017 Performed by Shubham Clifton MD at [facility] SI JOINT Bilateral SI Joint Bilateral 05/31/2020 Performed by Shubham Clifton MD at [facility] INJECTION SI JOINT Left SI JOint Left 01/06/2019 Performed by Shubham Clifton MD at [facility] INJECTION SI JOINT Right SI Joint Right 06/09/2019 Performed by Shubham Clifton MD at [facility] SPINE TRANSFORAMINAL Left L 4, 5 NR Left 09/24/2017 Performed by Shubham Clifton MD at [facility] INJECTION SPINE TRANSFORAMINAL Left L 5,1 Nroot Left 01/08/2023 Performed by Shubham Clifton MD at [facility] INJECTION SPINE TRANSFORAMINAL Right L 5,1 Nroot Right 11/27/2022 Performed by Shubham Clifton MD at [facility] STEROID EPI 1 WITH SEDATION Left 5,1 NR Left 05/08/2019 Performed by Shubham Clifton MD at [facility] KNEE ARTHROSCOPY 2010, 2013 KNEE SURGERY 2010 2013 Arthroscopy bilateral/repair meniscus right X2, left X1 LAMINECTOMY LUMBAR FORAMENOTOMY MULTI LEVEL L1-2 RIGHT/L2-3 BILATERAL/LUMBAR DRAIN INSERTION N/A 07/03/2021 Performed by Corey Chacon MD at [facility] LAPAROTOMY OOPHERECTOMY Bilateral 1984 LUMBAR DISCECTOMY LUMBAR FUSION 2010 L3-5 LUMBAR LAMINECTOMY MICRO LUMBAR DISCECTOMY L5-S1/ FORAMINOTOMY L5-S1 Left 01/14/2017 Performed by Corey Chacon MD at [facility] OOPHORECTOMY 1982 OTHER SURGICAL HISTORY Knee Arthroscopy With Medial Meniscus Repair OTHER SURGICAL HISTORY Spinal Diskectomy RADIO FREQUENCY ABLATION Left L 4/5, 5/1 Left 12/02/2018 Performed by Shubham Clifton MD at [facility] RADIO FREQUENCY ABLATION Left L 4/5, 5/1 Left 07/30/2017 Performed by Shubham Clifton MD at [facility] RADIO FREQUENCY ABLATION Left SI joint Left 03/31/2019 Performed by Shubham Clifton MD at [facility] RADIO FREQUENCY ABLATION Right L2/3, 3/4 Right 03/29/2020 Performed by Shubham Clifton MD at [facility] RADIOFREQUENCY ABLATION SPINAL Left Si joint Left 05/07/2017 Performed by Shubham Clifton MD at [facility] RADIOFREQUENCY ABLATION SPINAL Right C 4/5,5/6 Right 06/26/2022 Performed by Shubham Clifton MD at [facility] RADIOFREQUENCY ABLATION SPINAL RIGHT SI JOINT Right 05/21/2017 Performed by Shubham Clifton MD at [facility] RELEASE CARPAL TUNNEL Left 11/04/2021 Performed by Corey Chacon MD at [facility] SHOULDER SURGERY 2011 Right rotator cuff [...] mg total) by mouth in the morning. kvviypd-uhtkqsbtugkom-tahimxmd (EXCEDRIN MIGRAINE) 250-250-65 mg per tablet Take [...] caffeine as well as addressing constipation with kkdk-wnx-mtzipce agents. If no improvement can add beta [...] for your understanding. documented in this encounter [facility] 12-12-2024 Telephone encounter Note Approvals with refills [facility] 12-12-2024 Miscellaneous Notes Approvals with refills documented in this encounter [facility] 12-08-2024 History of Present illness Narrative [...] cifuentes Age-related osteoporosis without current pathological fracture (CMS/HCC) Other Visit Diagnoses Urinary frequency - Primary [...] skin lesions today. documented in this encounter [facility] 12-06-2024 History of Present illness Narrative [...] (benign paroxysmal positional vertigo) Brain tumor (benign) ([facility]) Breast disorder 4 biopsies Bronchitis 01/01/2017 Cancer ([facility]) Basal cell Carpal tunnel syndrome Cataract [...] SURGERY 1981 2002 Biopsy four times CHOLECYSTECTOMY 2002 COLONOSCOPY w/ bx N/A 07/07/2018 Performed by Alexander Leach MD at [facility] ENDOSCOPY COSMETIC SURGERY 1984 DISCECTOMY 1990 Partial L4-5 EGD 2001 EYE SURGERY 2014 FOOT SURGERY 2008 Reattachment of tendon left foot with bone graft HIP SURGERY 2003 Excision of bursa left hip HYSTERECTOMY 1983 INJECTION BLOCK EPIDURAL STEROID LUMBAR/SACRAL Left L 5,1 NR Left 12/20/2020 Performed by Shubham Clifton MD at [facility] BLOCK NERVE MEDIAL BRANCH right C 4/5,5/6 Right 05/22/2022 Performed by Shubham Clifton MD at [facility] BLOCK NERVE MEDIAL BRANCH right C 4/5,5/6 Right 04/17/2022 Performed by Shubham Clifton MD at [facility] INJECTION CAUDAL EPIDURAL WITH CATHETER, STEROID N/A 03/07/2018 Performed by Shubham Clifton MD at [facility] LARGE JOINT BURSA: bilat hip Bilateral 12/10/2017 Performed by Shubham Clifton MD at [facility] INJECTION MEDIAL BRANCH NERVE BLOCK Bilateral L 4/5, 5/1 Bilateral 06/28/2017 Performed by Shubham Clifton MD at [facility] INJECTION MEDIAL BRANCH NERVE BLOCK Right L 2/3, 3/4 Right 12/08/2019 Performed by Shubham Clifton MD at [facility] INJECTION MEDIAL BRANCH NERVE BLOCK RIGHT L23 34 Right 01/19/2020 Performed by Shubham Clifton MD at [facility] SI JOINT Bilateral 04/09/2017 Performed by Shubham Clifton MD at [facility] SI JOINT Bilateral SI Joint Bilateral 05/31/2020 Performed by Shubham Clifton MD at [facility] SI JOINT Left SI JOint Left 01/06/2019 Performed by Shubham Clifton MD at [facility] SI JOINT Right SI Joint Right 06/09/2019 Performed by Shubham Clifton MD at [facility] SPINE TRANSFORAMINAL Left L 4, 5 NR Left 09/24/2017 Performed by Shubham Clifton MD at [facility] SPINE TRANSFORAMINAL Left L 5,1 Nroot Left 01/08/2023 Performed by Shubham Clifton MD at [facility] SPINE TRANSFORAMINAL Right L 5,1 Nroot Right 11/27/2022 Performed by Shubham Clifton MD at [facility] STEROID EPI 1 WITH SEDATION Left 5,1 NR Left 05/08/2019 Performed by Shubham Clifton MD at [facility] KNEE ARTHROSCOPY 2010, 2013 KNEE SURGERY 2010 2013 Arthroscopy bilateral/repair meniscus right X2, left X1 LAMINECTOMY LUMBAR FORAMENOTOMY MULTI LEVEL L1-2 RIGHT/L2-3 BILATERAL/LUMBAR DRAIN INSERTION N/A 07/03/2021 Performed by Corey Chacon MD at [facility] LAPAROTOMY OOPHERECTOMY Bilateral 1984 LUMBAR DISCECTOMY LUMBAR FUSION 2009 L3-5 LUMBAR LAMINECTOMY MICRO LUMBAR DISCECTOMY L5-S1/ FORAMINOTOMY L5-S1 Left 01/14/2017 Performed by Corey Chacon MD at [facility] OOPHORECTOMY 1982 OTHER SURGICAL HISTORY Knee Arthroscopy With Medial Meniscus Repair OTHER SURGICAL HISTORY Spinal Diskectomy RADIO FREQUENCY ABLATION Left L 4/5, 5/1 Left 12/02/2018 Performed by Shubham Clifton MD at [facility] RADIO FREQUENCY ABLATION Left L 4/5, 5/1 Left 07/30/2017 Performed by Shubham Clifton MD at [facility] RADIO FREQUENCY ABLATION Left SI joint Left 03/31/2019 Performed by Shubham Clifton MD at [facility] RADIO FREQUENCY ABLATION Right L2/3, 3/4 Right 03/29/2020 Performed by Shubham Clifton MD at [facility] RADIOFREQUENCY ABLATION SPINAL Left Si joint Left 05/07/2017 Performed by Shubham Clifton MD at [facility] RADIOFREQUENCY ABLATION SPINAL Right C 4/5,5/6 Right 06/26/2022 Performed by Shubham Clifton MD at [facility] RADIOFREQUENCY ABLATION SPINAL RIGHT SI JOINT Right 05/21/2017 Performed by Shubham Clifton MD at [facility] RELEASE CARPAL TUNNEL Left 11/04/2021 Performed by Corey Chacon MD at [facility] SHOULDER SURGERY 2011 Right rotator cuff [...] mouth in the morning., Disp: , Rfl: isigncl-aiqnjzctywqwp-mymziweo (EXCEDRIN MIGRAINE) 250-250-65 mg per tablet, Take [...] months with doctor John Johnson MD, MPH, [facility] [address] [address] Dept: [phone] FAX: [phone] documented in this encounter [facility] 11-29-2024 Telephone encounter Note Approvals with refills [facility] 11-29-2024 Miscellaneous Notes Approvals with refills documented in this encounter [facility] 11-06-2024 Telephone encounter Note Approvals with refills [facility] 11-06-2024 Miscellaneous Notes Approvals with refills documented in this encounter [facility] 10-30-2024 History of Present illness Narrative [...] (four) hours., Disp: 18 g, Rfl: 11 qreuukdoys-hevwqhfzviypi-cksgosh e 50-325-40 MG tablet, Take 1 tablet [...] 1952 APPENDECTOMY 1965 BREAST BIOPSY x4 - [id number] CHOLECYSTECTOMY 2002 EYE SURGERY 01/21/2023 retinal repair [facility] HEMANGIOMA EXCISION 1946 from upper back HYSTERECTOMY 1984 KNEE SURGERY Bilateral arthroscopic knee surgery x3 (Rx2, Lx1) ([id number]) LAPAROTOMY OOPHERECTOMY 1985 LUMBAR DISCECTOMY 1990 partial LUMBAR DISCECTOMY 01/14/2017 Microdiscetomy L5-S1 LUMBAR DISCECTOMY 07/03/2021 L1-2 partial discectomy, L1-2, L2-3 cleaning out of stenosis in the spinal canal DR. Edwards [facility] LUMBAR EPIDURAL INJECTION 12/20/2020 Dr Clifton [...] Santo Christianson DPM documented in this encounter [facility] 10-30-2024 Instructions Santo Christianson DPM - 10/30/2024 1:45 PM EST As noted documented in this encounter [facility] 10-06-2024 Telephone encounter Note Voicemail left for Angela at [phone]. Call back number given. 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 My note was forward to Dr. Hoover for review. At this time we recommend follow up and new imaging in 1 year. Rose Velasquez MSN, PRETZEL TWISTING MACHINE OPERATOR, WAITER/WAITRESS CAFETERIA Certified Nurse Practitioner [facility] Work Phone: 10-06-2024 Miscellaneous Notes Voicemail left for Angela at [phone]. Call back number given. 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 My note was forward to Dr. Hoover for review. At this time we recommend follow up and new imaging in 1 year. Rose Velasquez MSN, PRETZEL TWISTING MACHINE OPERATOR, WAITER/WAITRESS CAFETERIA Certified Nurse Practitioner General Call Caller : Angela Contact Reason for Call : Did you speak with Dr. Hoover regarding her most recent appt? Patient requesting return call ? Yes documented in this encounter [facility] 10-04-2024 Telephone encounter Note General Call Caller : Angela Contact Reason for Call : Did you speak with Dr. Hoover regarding her most recent appt? Patient requesting return call ? Yes [facility] 09-26-2024 Note HNO ID: [id number] Author: ROSE VELASQUEZ APRN.CNP Service: ? Author Type: Nurse Practitioner Type: Progress Notes Filed: 09/26/2024 15:27 Note Text: [facility] NEURO-ONCOLOGY OUTPATIENT CLINIC NOTE [...] side to side (more content not included)... [facility] 09-26-2024 History of Present illness Narrative Images from the original note were not included. Neurological [facility] NEURO-ONCOLOGY OUTPATIENT CLINIC NOTE [...] DATE OF EXAM: Sep 26 2024 12:29PM [facility] 0295 - MRI BRAIN WO/W IVCON [...] petrous ridge presumed meningioma compared to 03/02/2024. Warp Worker: ALLYSSA Transcribe Date/Time: Sep 26 2024 2:10P [...] - All questions were answered. Rose Velasquez APRN.WAITER/WAITRESS CAFETERIA Certified Nurse Practitioner cc: Mandi Hoover MD - Epic documented in this encounter [facility] 09-26-2024 History of Present illness Narrative [...] TIME: 11:27 AM documented in this encounter [facility] 09-26-2024 Note HNO ID: [id number] Author: JESSICA HOWELL RN Service: Nursing Author [...] DATE: September 26, 2024 TIME: 11:27 AM [facility] 08-14-2024 History of Present illness Narrative [...] past. She does not currently have an professor of poultry science. SUBJECTIVE: MEDICATIONS: Current Outpatient Medications Medication Instructions albuterol HFA 90 mcg/act inhaler 2 puffs, Inhalation, Every 4 hours alendronate (FOSAMAX) 70 mg, Oral, Every 7 days amitriptyline (ELAVIL) 50 mg, Oral, Nightly Ascorbic Acid (vitamin C) 1000 MG tablet Every 24 hours aspirin 81 mg, Oral, Daily RT atorvastatin (LIPITOR) 40 mg, Oral, Daily buprenorphine (Butrans) 7.5 MCG/HR 1 patch, Transdermal, Weekly hpanjrphjm-uvbkicatvsgqe-imgpsbx e 50-325-40 MG tablet 1 tablet, Oral, [...] provided. She does not currently have an professor of poultry science but is open to seeing one. A COVID-19 test was conducted today, which returned negative. She is advised to stay hydrated. If her condition deteriorates, a repeat COVID-19 test will be necessary. documented in this encounter [facility] 08-08-2024 History of Present illness Narrative [...] (Butrans) 7.5 MCG/HR 1 patch, Transdermal, Weekly xxtcasdgfd-cglnoyyatcegx-hubfjzz e 50-325-40 MG tablet 1 tablet, Oral, [...] 1952 APPENDECTOMY 1965 BREAST BIOPSY x4 - [id number] CHOLECYSTECTOMY 2002 EYE SURGERY 01/21/2023 retinal repair [facility] HEMANGIOMA EXCISION 1946 from upper back HYSTERECTOMY 1983 KNEE SURGERY Bilateral arthroscopic knee surgery x3 (Rx2, Lx1) ([id number]) LAPAROTOMY OOPHERECTOMY 1985 LUMBAR DISCECTOMY 1989 partial LUMBAR DISCECTOMY 01/14/2017 Microdiscetomy L5-S1 LUMBAR DISCECTOMY 07/03/2021 L1-2 partial discectomy, L1-2, L2-3 cleaning out of stenosis in the spinal canal DR. Edwards [facility] LUMBAR EPIDURAL INJECTION 12/20/2020 Dr Clifton [...] Never Depression: At risk (07/13/2024) Received from [employer] PHQ-2 Total Score: 3 REVIEW OF SYMPTOMS: [...] 25 mg were renewed and sent to [facility] pharmacy. Follow-up The patient will follow up in 4 months. documented in this encounter [facility] 07-10-2024 History of Present illness Narrative [...] consulted with Dr. Romano, a urologist in [place], some time ago but has not sought [...] (Butrans) 7.5 MCG/HR 1 patch, Transdermal, Weekly zpaihkhqke-nigqocmsmtkdm-slfiiuf e 50-325-40 MG tablet 1 tablet, Oral, [...] 1953 APPENDECTOMY 1965 BREAST BIOPSY x4 - [id number] CHOLECYSTECTOMY 2002 EYE SURGERY 01/21/2023 retinal repair [facility] HEMANGIOMA EXCISION 1946 from upper back HYSTERECTOMY 1983 KNEE SURGERY Bilateral arthroscopic knee surgery x3 (Rx2, Lx1) ([id number]) LAPAROTOMY OOPHERECTOMY 1985 LUMBAR DISCECTOMY 1989 partial LUMBAR DISCECTOMY 01/14/2017 Microdiscetomy L5-S1 LUMBAR DISCECTOMY 07/03/2021 L1-2 partial discectomy, L1-2, L2-3 cleaning out of stenosis in the spinal canal DR. Edwards [facility] LUMBAR EPIDURAL INJECTION 12/20/2020 Dr Clifton [...] Depression: Not at risk (03/10/2024) Received from [employer], [employer] PHQ-2 Total Score: 0 REVIEW OF SYMPTOMS: [...] by Dr. Márquez documented in this encounter [facility] 04-04-2024 Instructions Anson Ennis MD - 04/04/2024 12:35 PM EDT - obtain follow up MRI brain wwo in 6 months - please follow up with your yarn bleaching machine operator (we do not think the etiology of your hearing loss is due to your meningioma) - our team will notify Dr. Bia Cao regarding these findings; we recommend investigating other etiologies of imbalance in Mrs. Ruth documented in this encounter [facility] 04-04-2024 Nurse Note Additional intake questions: Has the patient had fever, nausea, vomiting, diarrhea, constipation, fatigue for > 1 week? No Does the patient have a decreased appetite? No Does patient want to see a Denitrator Operator? No (yes to any of above refer patient to schedulers for dietitian appointment) ) Does patient have any new or increased numbness or tingling of extremities? No Is patient interested in fertility information? No Does patient need any prescription refills? No Does patient have an advanced directive in place? Yes, no copy found in [facility] Patient referred to [facility] Electronically Signed By: Josette Sheppard MA [facility] 04-04-2024 Nurse Note Additional intake questions: Has the patient had fever, nausea, vomiting, diarrhea, constipation, fatigue for > 1 week? No Does the patient have a decreased appetite? No Does patient want to see a Denitrator Operator? No (yes to any of above refer patient to schedulers for dietitian appointment) ) Does patient have any new or increased numbness or tingling of extremities? No Is patient interested in fertility information? No Does patient need any prescription refills? No Does patient have an advanced directive in place? Yes, no copy found in [facility] Patient referred to [facility] Electronically Signed By: Josette Sheppard MA documented in this encounter [facility] 04-04-2024 History of Present illness Narrative Images from the original note were not included. SECTION OF SKULL BASE SURGERY MINIMALLY INVASIVE CRANIAL BASE & PITUITARY SURGERY PROGRAM Jessica Caro [facility] CC: Patient Care Team: Bia Cao as PCP ([facility]) Corey Chacon MD as NI Referring [...] 6 months with a repeat MRI scan ([place] preference) and clinic visit with one of our skull base team advance practice providers ([place] preference). - follow up with yarn bleaching machine operator for hearing loss which is unrelated to [...] Patient is accompanied by her granddaughter (her driver/guide) and great grand daughter). The patient is [...] contrast and shows a 1.2 cm R BLAST FURNACE KEEPER contrast-enhancing lesion concerning for either schwannoma or meningioma- no associated mass effect or edema. The patient takes ASA 81 mg daily for cardioprotection per her PCP. The patient has been using a cane for the last 5-6 years. The patient reports that ~6 weeks ago, she walked into her garage door and fell. The patient has not seen an yarn bleaching machine operator or a vestibular therapist. Past Medical History: [...] contrast and shows a 1.2 cm R BLAST FURNACE KEEPER contrast-enhancing lesion extra-axial mass arising from the right posterior petrous ridge with no significant mass effect and not abutting the right vestibular cochlear complex. documented in this encounter [facility] 04-04-2024 Note HNO ID: [id number] Author: MANDI HOOVER MD Service: ? Author Type: Physician Type: Progress Notes Filed: 04/05/2024 17:50 Note Text: SECTION OF SKULL BASE SURGERY MINIMALLY INVASIVE CRANIAL BASE AND PITUITARY SURGERY PROGRAM Jessica Caro [facility] CC: Patient Care Team: Bia Cao as PCP ([facility]) Corey Chacon MD as NI Referring [...] our skull base team advance practice providers ([place] preference). - follow up with yarn bleaching machine operator for hearing loss which is unrelated to [...] Patient is accompanied by her granddaughter (her driver/guide) and great grand daughter). The patient is [...] contrast and shows a 1.2 cm R BLAST FURNACE KEEPER contrast-enhancing lesion concerning for either schwannoma or meningioma- no associated mass effect or edema. The patient takes ASA 81 mg daily for cardioprotection per her PCP. The patient has been using a cane for the last 5-6 years. The patient reports that ~6 weeks ago, she walked into her garage door and fell. The patient has not seen an yarn bleaching machine operator or a vestibular therapist. Past Medical History: [...] mg (VYTORIN) 10-40 (more content not included)... [facility] 03-28-2024 Telephone encounter Note Called patient to schedule an appointment. No ans/left message to call the office back. Appointment scheduled: 04/04/2024 10:30 AM (Arrive by 10:15 AM) Mandi Hoover MD [facility] Etelvina [place], PAC [facility] 03-28-2024 Miscellaneous Notes Called patient to schedule an appointment. No ans/left message to call the office back. Appointment scheduled: 04/04/2024 10:30 AM (Arrive by 10:15 AM) Mandi Hoover MD [facility] [place] Etelvina Trujillo, PAC Time Frame: First available Provider: Kiko Landrum Soni Referring: Corey Chacon MD Images to be requested from [facility] Dx: Right CPA mass Patient: Angela Ruth Address: Angela Ruth [address] [place] [address] Dr [place] [address] Per Triage: HISTORY OF PRESENT ILLNESS Angela [...] extracranial soft tissues are unremarkable. Rose Velasquez APRN.WAITER/WAITRESS CAFETERIA March 28, 2024 Referral source: Corey Chacon MD ([facility]) Reason for visit: consideration of gamma knife for 1.2 cm enhancing lesion at right cerebelloponitine angle with leading differential including vestibular schwannoma and meningioma External records: Sent with referral and pulled from [facility] Triage: Required, forwarded to [facility] by telephone encounter sent to [facility] Scheduling Triage. Financial clearance: Not required to schedule documented in this encounter [facility] 03-28-2024 Telephone encounter Note Time Frame: First available Provider: Kiko Landrum Soni Referring: Corey Chacon MD Images to be requested from [facility] Dx: Right CPA mass Patient: Angela Ruth Address: Angela Ruth [id number] [place] [address] Per Triage: HISTORY OF PRESENT ILLNESS Angela [...] unremarkable. Rose Velasquez APRN.MAHENDRA March 28, 2024 [facility] 03-24-2024 Telephone encounter Note Referral source: Corey Chacon MD ([facility]) Reason for visit: consideration of gamma knife for 1.2 cm enhancing lesion at right cerebelloponitine angle with leading differential including vestibular schwannoma and meningioma External records: Sent with referral and pulled from [facility] Triage: Required, forwarded to [facility] by telephone encounter sent to [facility] Scheduling Triage. Financial clearance: Not required to schedule [facility] Evaluation note Diagnosis General weakness- Primary Other malaise and fatigue History of falling documented in this encounter [facility]* Diagnosis Mixed hyperlipidemia (CMS/HCC)- Primary Mixed hyperlipidemia Stress incontinence of urine documented in this encounter [facility]* Diagnosis General weakness- Primary Other malaise and fatigue History of falling documented in this encounter [facility] HealthcareEvaluation note* Diagnosis General weakness- Primary Other malaise and fatigue History of falling documented in this encounter [facility] note* Diagnosis Brain mass [G93.89]- Primary Unspecified condition of [facility] Intracranial meningioma (HCC)- Primary Benign neoplasm of cerebral meninges Sensorineural hearing loss (SNHL) of right ear, unspecified hearing status on contralateral side Dizziness Dizziness and giddiness [facility] Diagnosis Intracranial meningioma (HCC)- Primary Benign neoplasm of cerebral meninges Benign neoplasm of meninges (HCC) Benign neoplasm of cerebral meninges [facility] Diagnosis Benign neoplasm of meninges (HCC)- Primary Benign neoplasm of cerebral meninges Dizziness Dizziness and giddiness [facility] Diagnosis Benign neoplasm of meninges (HCC) Benign neoplasm of cerebral meninges [facility] Diagnosis Dermatophytosis of nail- Primary Dystrophic [...] hyperlipidemia type (CMS/HCC) [facility] Diagnosis Urinary frequency- Primary Dysuria Chronic idiopathic constipation Unspecified constipation Chronic right-sided thoracic back pain Chronic right-sided thoracic back pain [facility] Diagnosis Acute cystitis without hematuria- Primary [facility]* Diagnosis Acute bronchitis, unspecified organism- Primary Seasonal allergic rhinitis due to pollen [facility]* Diagnosis Anemia, unspecified type- Primary [facility]* Diagnosis Hypothyroidism, unspecified type- Primary Age-related osteoporosis without current pathological fracture Vitamin D deficiency [facility] Diagnosis Osteoporosis, unspecified osteoporosis type, unspecified pathological fracture presence- Primary [facility] Diagnosis Urinary frequency- Primary Essential hypertension ([facility]) Unspecified essential hypertension Age-related osteoporosis without current pathological fracture ([facility]) [facility] Diagnosis Acute cystitis without hematuria- Primary [facility]* Diagnosis Gastroesophageal reflux disease without esophagitis Esophageal reflux [facility]* Diagnosis Urge incontinence- Primary [facility] Diagnosis Osteoporosis, unspecified osteoporosis type, unspecified pathological fracture presence- Primary [facility] Diagnosis Hoarse- Primary Dysphonia Primary insomnia Persistent disorder of initiating or maintaining sleep Major depressive disorder, single episode, in full remission ([facility]) Major depressive disorder, 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 Fall, subsequent encounter Gastroesophageal reflux disease without esophagitis Esophageal reflux [facility]* Diagnosis Hematuria, unspecified type [facility]* Diagnosis Acute cystitis with hematuria- Primary [facility]* Diagnosis Mixed hyperlipidemia ([facility]) Mixed hyperlipidemia Anxiety Anxiety state, unspecified documented [...] fracture presence- Primary [facility] Diagnosis Migraine without aura and without status migrainosus, not intractable- Primary Essential tremor Psychophysiological insomnia Persistent disorder of initiating or maintaining sleep [facility]* Diagnosis Osteoporosis, unspecified osteoporosis type, unspecified pathological fracture presence- Primary [facility]* Diagnosis Migraine without aura and without status migrainosus, not intractable- Primary Essential tremor Cervical radiculopathy Brachial neuritis or radiculitis nos Bilateral occipital neuralgia [facility]* Diagnosis Essential hypertension ([facility])- Primary Unspecified essential hypertension documented in this encounter [facility] Diagnosis Urge incontinence- Primary Frequent UTI Urinary tract infection, site not specified [facility] Diagnosis Urge incontinence- Primary Frequent UTI Urinary tract infection, site not specified Osteoporosis, unspecified osteoporosis type, unspecified pathological fracture presence- Primary [facility]* Diagnosis Moderate persistent asthma, unspecified whether complicated ([facility]) documented [facility] encounter [facility]* Diagnosis Intractable migraine with aura without status migrainosus ([facility])- Primary Fall, subsequent encounter Essential hypertension ([facility]) Unspecified essential hypertension documented in this encounter [facility]* Diagnosis Urge incontinence- Primary Frequent UTI Urinary tract infection, site not specified Osteoporosis, unspecified osteoporosis type, unspecified pathological fracture presence- Primary [facility] in [facility]* Diagnosis Urge incontinence- Primary Frequent UTI Urinary tract infection, site not specified Osteoporosis, unspecified osteoporosis type, unspecified pathological fracture presence- Primary Hypothyroidism, unspecified type Age-related osteoporosis without current pathological fracture Vitamin D deficiency documented in [facility]* Diagnosis Urge incontinence- Primary Frequent UTI Urinary tract infection, site not specified Kidney stones- Primary Calculus of kidney Urge incontinence Osteoporosis, unspecified osteoporosis type, unspecified pathological fracture presence- Primary [facility] Diagnosis Urge incontinence- Primary Frequent UTI Urinary tract infection, site not specified Kidney stones- Primary Calculus of kidney Urge incontinence [facility]* Diagnosis Primary insomnia Persistent disorder of initiating or maintaining sleep Major depressive disorder, single episode, in full remission Major depressive disorder, 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 documented in this encounter [facility]* Diagnosis Stage 3b chronic kidney disease (CKD) ([facility]) Major depressive disorder, single episode, in full remission Major depressive disorder, 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 Age-related osteoporosis without current pathological fracture Moderate persistent asthma without complication (HCC) Diastolic dysfunction with chronic heart failure (HCC) Chronic idiopathic constipation Unspecified constipation Mild intermittent asthma without complication (HCC) Interstitial pulmonary disease, unspecified (HCC) documented in this encounter [facility]* Diagnosis Urge incontinence- Primary Frequent UTI Urinary tract infection, site not specified Kidney stones- Primary Calculus of kidney Urge incontinence Osteoporosis, unspecified osteoporosis type, unspecified pathological fracture presence- Primary documented in this encounter [facility]* Diagnosis Stage 3b chronic kidney disease (CKD) ([facility]) Major depressive disorder, single episode, in full remission Major depressive disorder, 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 Age-related osteoporosis without current pathological fracture Moderate persistent asthma without complication (HCC) Diastolic dysfunction with chronic heart failure (HCC) Chronic idiopathic constipation Unspecified constipation Mild intermittent asthma without complication (HCC) Interstitial pulmonary disease, unspecified (HCC) Gastroesophageal reflux disease without esophagitis Esophageal reflux documented in this encounter [facility] HealthcareHistory of Present illness Narrative* Abran Maldonado RN - 01/12/2025 2:20 PM EST Pt here for evenity as scheduled. Calcium level 9.8. This is patients first evenity injection. Instructed on purpose/potential side effects of injection. Printed education given to patient. Injectiongiven SQ to two diff injection sites. Pt tolerated well. Dc'd in stable condition with family. Treatment calendar given. [facility]ructionsNot on file documented [facility] System[facility]ructionsNot on file documented in this encounter[facility] SystemInstructionsNot on file documented in this [facility] SystemInstructionsNot on file documented in this [facility] SystemInstructionsNot on file documented in this encounter[facility] SystemInstructionsNot on file documented in this encounterPro[facility] SystemInstructionsNot on file documented in this encounter[facility] SystemInstructionsNot on file documented in this encounter[facility] SystemReason for referral (narrative)* Consultation (Routine) - Authorized Specialty Diagnoses / Procedures Referred By Contac t Referred To Contact Urology Diagnoses Urinary frequency Procedures TX OFFICE/OUTPATIENT [facility] 60 MINUTES Bia Cao MD [address] [place] [address] Maria C Kramer MD [address] [place] [address] Referral ID Status Reason Start Date Expiration Date Visits Requested Visits Authorized [id number] Authorized Specialty Services Required 07/10/2024 01/06/2025 1 1 [facility] for visit Narrative* Episode Based Medications (Routine) - Authorized Specialty Diagnoses / Procedures Referred By Violette t Referred To Contact Diagnoses Osteoporosis, unspecified osteoporosis type, unspecified pathological fracture presence Procedures TX ROMOSOZUMAB INJECTION John Johnson MD [address] [facility], [address] [place] [address] Phone: tel: fax: Meggan Hunter [facility] [place] [facility] On[facility] [address] [place] [address] Phone: tel: fax: Referral ID Status Reason Start Date Expiration Date V isits Requested Visits Authorized [id number] Authorized 12/06/2024 12/06/2025 12 12 [facility] Summary Purpose Family History No Family History Records FoundNo Family History Records FoundNo Family History Records FoundNo Family History Records FoundNo Family History Records FoundNo Family History Records FoundNo Family History Records FoundNo Family History Records FoundNo Family History Records FoundNo Family History Records Found Advance Directives Documents on File Type Date Recorded 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 Power 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 Professor 07/16/2021 3:45 PM Living Will 07/16/2021 3:40 PM Date Activated Date Inactivated Comments 03/02/2023 4:15 AM 03/03/2023 3:57 PM Date Activated Date Inactivated Comments 07/03/2021 9:57 AM 07/10/2021 6:07 PM Date Activated Date Inactivated Comments 01/04/2018 4:32 PM 01/06/2018 6:44 PM Date Activated Date Inactivated Comments 01/14/2017 8:37 AM 01/15/2017 5:28 PM Documents on File Type Date Recorded 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 Power of Esl Professor 07/16/2021 3:45 PM Living Will 07/16/2021 3:40 [...] W/O W/CONTRAST MATERIAL Mandi Hoover MD [address] [place] [address] Imaging [place] [address] Referral ID Status Reason Start Date Expiration Date Visits Requested Visits Authorized [id number] Pending Review Auto-Generat ed Referral 08/28/2024 06/08/2025 1 1 Specialty Diagnoses / Procedures Referred By Contac t Referred To Contact MR IMAGING Diagnoses Benign neoplasm of meninges (HCC) Procedures MRI BRAIN WO/W IVCON MRI BRAIN BRAIN STEM W/O W/CONTRAST MATERIAL Rose Velasquez APRN.WAITER/WAITRESS [employer] [address] [place] [address] [place] [address] Referral ID Status Reason Start Date Expiration Date Visits Requested Visits Authorized [id number] New Request Auto-Generat ed Referral 09/26/2024 10/26/2025 1 1 Referral ID Status Reason Start Date Expiration Date V isits Requested Visits Authorized [id number] Closed Auto-Generate d Referral 08/28/2024 06/08/2025 1 1 Additional Source Comments INFORMATION SOURCE (unrecogn ized section and content) DATE CREATED AUTHOR 05/16/2018 [facility] DATE CREATED AUTHOR AUTHOR'S ORGANIZ ATION [facility]/21/[facility] DATE CREATED AUTHOR AUTHOR'S ORGANIZ ATION 11/13/2022 [facility] DATE CREATED AUTHOR AUTHOR'S ORGANIZ ATION 12/07/2022 [facility] DATE CREATED AUTHOR AUTHOR'S ORGANIZ ATION 10/08/2024 [facility] DATE CREATED AUTHOR AUTHOR'S ORGANIZ ATION 04/21/2025 [facility] DATE CREATED AUTHOR AUTHOR'S ORGANIZ ATION 06/15/2025 [facility] DATE CREATED AUTHOR AUTHOR'S ORGANIZ ATION 07/12/2025 [facility] EPIC DATE CREATED AUTHOR AUTHOR'S ORGANIZ ATION 07/12/2025 [facility] DATE CREATED AUTHOR AUTHOR'S ORGANIZ ATION 07/22/2025 [facility] Reason for Visit (unrecogniz ed section and content) Reason Comments Injection evenity Specialty Diagnoses / Procedures Referred By Contac t Referred To Contact Diagnoses Osteoporosis, unspecified osteoporosis type, unspecified pathological fracture presence Procedures TX ROMOSOZUMAB INJECTION John Johnson MD [address], [address] [place] [address] Phone: tel: fax: Meggan [facility] On[facility] [address] [place] [address] Phone: tel: fax: Referral ID Status Reason Start Date Expiration Date V isits Requested Visits Authorized [id number] Authorized 12/06/2024 12/06/2025 12 12 Reason Comments Outpatient Infusion Evenity Specialty Diagnoses / Procedures Referred By Contac t Referred To Contact Physical Therapy Diagnoses Muscle weakness (generalized) Procedures TREATMENT Bia Cao MD [address] [place] [address] Jonny Salazar, PT [address] [place] [address] Referral ID Status Reason Start Date Expiration Date V isits Requested Visits Authorized [id number] Authorized 12/08/2023 06/05/2024 99 99 Reason Comments Med Refill Reason Comments Received Outside Medical Records Externa l referral to Neurological [facility] triage Nurse Triage Call Appointment Reason Comments Consult Reason Comments New Patient Intracranial Meningi brandon Reason Comments Radiology MRI Specialty Diagnoses / Procedures Referred By Contac t Referred To Contact MR IMAGING Diagnoses Benign neoplasm of meninges (HCC) Procedures MRI BRAIN WO/W IVCON MRI BRAIN BRAIN STEM W/O W/CONTRAST MATERIAL Mandi Hoover MD [address] [place] [id number] Mr Imaging [facility] Referral ID Status Reason Start Date Expiration Date V isits Requested Visits Authorized [id number] Closed Auto-Generate d Referral 08/28/2024 06/08/2025 1 [...] Referred To Contact Otolaryngology Diagnoses Hoarse Procedures TX OFFICE/OUTPATIENT NEW HIGH MDM 60 MINUTES Tae Hardy NP [address] [place] [address] Phone: tel: fax: Katerin Alvarado MD [address] [address] Phone: tel: fax: Referral ID Status Reason Start Date Expiration Date V isits Requested Visits Authorized [id number] Closed Specialty Services Required 12/26/2024 06/24/2025 1 1 Reason Comments Sore Throat Cough Reason Comments Follow-up 1 month follow up Reason Comments Follow-up Reason Comments Follow-up Thy Reason Onset Date Comments outgoing referral 05/08/2025 Reason Comments Injection [facility] Care Teams (unrecognized sec tion and content) Acoustics Teacher Relationship Specialty Start Date End Date Jacob Viveros PCP - [employer] 11/22/22 Bia Cao MD [address] [place] [address] PCP - General Family Medicine 04/29/23 Acoustics Teacher Relationship Specialty Start Date End Date Jacob Viveros PCP - [employer] 11/22/22 Bia Cao MD [address] [place] [address] PCP - General Family Medicine 04/29/23 Acoustics Teacher Relationship Specialty Start Date End Date Jacob Viveros PCP - [employer] 11/22/22 Bia Cao MD [address] [place] [address] PCP - General Family Medicine 04/29/23 Acoustics Teacher Relationship Specialty Start Date End Date Jacob Viveros PCP - [employer] 11/22/22 Bia Cao MD [address] [place] [address] PCP - General Family Medicine 04/29/23 Acoustics Teacher Relationship Specialty Start Date End Date Jacob Viveros PCP - [employer] 11/22/22 Bia Cao MD [address] [place] [address] PCP - General Family Medicine 04/29/23 Acoustics Teacher Relationship Specialty Start Date End Date Jacob Viveros PCP - [employer] 11/22/22 Bia Cao MD [address] [facility] [place] [address] PCP - General Family Medicine 04/29/23 Acoustics Teacher Relationship Specialty Start Date End Date (Hist), No Pcp PCP - General 11/04/17 Corey Chacon MD [address] [place] [address] NI Referring Team Neurosurgery 03/24/24 Acoustics Teacher Relationship Specialty Start Date End Date (Hist), No Pcp PCP - General 11/04/17 Corey Chacon MD [address] [place] [address] NI Referring Team Neurosurgery 03/24/24 Acoustics Teacher Relationship Specialty Start Date End Date (Hist), No Pcp PCP - General 11/04/17 Corey Chacon MD [address] [place] [address] NI Referring Team Neurosurgery 03/24/24 Acoustics Teacher Relationship Specialty Start Date End Date (Hist), No Pcp PCP - General 11/04/17 Corey Chacon MD NI Referring Team Neurosurgery 03/24/24 Acoustics Teacher Relationship Specialty Start Date End Date (Hist), No Pcp PCP - General 11/04/17 Corey Chacon MD NI Referring Team Neurosurgery 03/24/24 Acoustics Teacher Relationship Specialty Start Date End Date (Hist), No Pcp PCP - General 11/04/17 Corey Chacon MD NI Referring Team Neurosurgery 03/24/24 Acoustics Teacher Relationship Specialty Start Date End Date Jacob Viveros PCP - [employer] 11/22/21 Bia Cao MD [address] [place] [address] PCP - General Family Medicine 04/29/23 Acoustics Teacher Relationship Specialty Start Date End Date Jacob Viveros PCP - [employer] 11/22/21 Bia Cao MD [address] [place] [address] PCP - General Family Medicine 04/29/23 Acoustics Teacher Relationship Specialty Start Date End Date Jacob Viveros PCP - [employer] 11/22/21 Bia Cao MD [address] [place] [address] PCP - General Family Medicine 04/29/23 Acoustics Teacher Relationship Specialty Start Date End Date Jacob Viveros PCP - [employer] 11/22/21 Bia Cao MD [address] [place] [address] PCP - General Family Medicine 04/29/23 Acoustics Teacher Relationship Specialty Start Date End Date Jacob Viveros PCP - [employer] 11/22/21 Bia Cao MD [address] [place] [address] PCP - General Family Medicine 04/29/23 Acoustics Teacher Relationship Specialty Start Date End Date Jacob Viveros PCP - [employer] 11/22/21 Bia Cao MD [address] [place] [address] PCP - General Family Medicine 04/29/23 Acoustics Teacher Relationship Specialty Start Date End Date Jacob Viveros PCP - [employer] 11/22/21 Bia Cao MD [address] [place] [address] PCP - General Family Medicine 04/29/23 Acoustics Teacher Relationship Specialty Start Date End Date Bernadette Viverosnathan Anny PCP - [employer] 11/22/21 Bia Cao MD [address] [place] [address] PCP - General Family Medicine 04/29/23 Acoustics Teacher Relationship Specialty Start Date End Date Jacob Viveros PCP - [employer] 11/22/21 Bia Cao MD [address] [place] [address] PCP - General Family Medicine 04/29/23 Acoustics Teacher Relationship Specialty Start Date End Date Bia Cao MD PCP - General Family Medicine 02/05/23 Acoustics Teacher Relationship Specialty Start Date End Date Bia Cao MD PCP - General Family Medicine 02/05/23 Acoustics Teacher Relationship Specialty Start Date End Date Bia Cao MD [address] [facility] [place] [address] PCP - General Family Medicine 04/29/23 Bia Cao MD [address] [facility] [place] [address] PCP - [employer] 11/22/21 Acoustics Teacher Relationship Specialty Start Date End Date Bia Cao MD [address] [facility] [place] [address] PCP - General Family Medicine 04/29/23 Bia Cao MD [address] [facility] [place] [address] PCP - [employer] 11/22/21 Acoustics Teacher Relationship Specialty Start Date End Date Bia Cao MD [address] [facility] [place] [address] PCP - General Family Medicine 04/29/23 Bia Cao MD [address] [facility] [place] [address] PCP - [employer] 11/22/21 Acoustics Teacher Relationship Specialty Start Date End Date Bia Cao MD [address] [facility] [place] [address] PCP - General Family Medicine 04/29/23 Bia Cao MD [address] [facility] [place] [address] PCP - [employer] 11/22/21 Acoustics Teacher Relationship Specialty Start Date End Date Bia Cao MD PCP - General Family Medicine 02/05/23 Acoustics Teacher Relationship Specialty Start Date End Date Bia Cao MD PCP - General Family Medicine 02/05/23 Acoustics Teacher Relationship Specialty Start Date End Date Bia Cao MD [address] [place] [address] PCP - General Family Medicine 04/29/23 Bia Cao MD [address] [place] [address] PCP - [employer] 11/22/21 Acoustics Teacher Relationship Specialty Start Date End Date Bia Cao MD [address] [place] [address] PCP - General Family Medicine 04/29/23 Bia Cao MD [address] [place] [address] PCP - [employer] 11/22/21 Acoustics Teacher Relationship Specialty Start Date End Date Bia Cao MD [address] [place] [address] PCP - General Family Medicine 04/29/23 Bia Cao MD [address] [place] [address] PCP - [employer] 11/22/21 Acoustics Teacher Relationship Specialty Start Date End Date Bia Cao MD [address] [facility] [place] [address] PCP - General Family Medicine 04/29/23 Bia Cao MD [address] [facility] [place] [address] PCP - [employer] 11/22/21 Acoustics Teacher Relationship Specialty Start Date End Date Bia Cao MD [address] [facility] [place] [address] PCP - General Family Medicine 04/29/23 Bia Cao MD [address] [facility] [place] [address] PCP - [employer] 11/22/21 Acoustics Teacher Relationship Specialty Start Date End Date Bia Cao MD [address] [facility] [place] [address] PCP - General Family Medicine 04/29/23 Bia Cao MD [address] [facility] [place] [address] PCP - [employer] 11/22/21 Acoustics Teacher Relationship Specialty Start Date End Date Bia Cao MD [address] [facility] [place] [address] PCP - General Family Medicine 04/29/23 Bia Cao MD [address] [facility] [place] [address] PCP - [employer] 11/22/21 Acoustics Teacher Relationship Specialty Start Date End Date Bia Cao MD [address] [facility] [place] [address] PCP - General Family Medicine 04/29/23 Bia Cao MD [address] [facility] [place] [address] PCP - [employer] 11/22/21 Acoustics Teacher Relationship Specialty Start Date End Date Bia Cao MD [address] [facility] [place] [address] PCP - General Family Medicine 04/29/23 Bia Cao MD [address] [facility] [place] [address] PCP - [employer] 11/22/21 Acoustics Teacher Relationship Specialty Start Date End Date Bia Coa MD [address] [facility] [place] [address] PCP - General Family Medicine 04/29/23 Bia Cao MD [address] [facility] [place] [address] PCP - [employer] 11/22/21 Acoustics Teacher Relationship Specialty Start Date End Date Bia Cao MD PCP - General Family Medicine 02/05/23 Acoustics Teacher Relationship Specialty Start Date End Date Bia Cao MD PCP - General Family Medicine 02/05/23 Acoustics Teacher Relationship Specialty Start Date End Date Bia Cao MD [address] [facility] [place] [address] PCP - General Family Medicine 04/29/23 Bia Cao MD [address] [place] [address] PCP - [employer] 11/22/21 Acoustics Teacher Relationship Specialty Start Date End Date Bia Cao MD PCP - General Family Medicine 02/05/23 Acoustics Teacher Relationship Specialty Start Date End Date Bia Cao MD PCP - General Family Medicine 02/05/23 Acoustics Teacher Relationship Specialty Start Date End Date Bia Cao MD PCP - General Family Medicine 02/05/23 Acoustics Teacher Relationship Specialty Start Date End Date Bia Cao MD PCP - General Family Medicine 02/05/23 Acoustics Teacher Relationship Specialty Start Date End Date Bia Cao MD [address] [place] [address] PCP - General Family Medicine 04/29/23 Bia Cao MD [address] [place] [address] PCP - [employer] 11/22/21 Acoustics Teacher Relationship Specialty Start Date End Date Bia Cao MD PCP - General Family Medicine 02/05/23 Acoustics Teacher Relationship Specialty Start Date End Date Bia Cao MD PCP - General Family Medicine 02/05/23 Acoustics Teacher Relationship Specialty Start Date End Date Bia Cao MD PCP - General Family Medicine 02/05/23 Acoustics Teacher Relationship Specialty Start Date End Date Bia Cao MD PCP - General Family Medicine 02/05/23 Acoustics Teacher Relationship Specialty Start Date End Date Bia Cao MD [address] [facility] [place] [address] PCP - General Family Medicine 04/29/23 Bia Cao MD [address] [facility] [place] [address] PCP - [employer] 11/22/21 Acoustics Teacher Relationship Specialty Start Date End Date Bia Cao MD [address] [facility] [place] [address] PCP - General Family Medicine 04/29/23 Bia Cao MD [address] [facility] [place] [address] PCP - [employer] 11/22/21 Acoustics Teacher Relationship Specialty Start Date End Date Bia Cao MD [address] [facility] [place] [address] PCP - General Family Medicine 04/29/23 Bia Cao MD [address] [facility] [place] [address] PCP - [employer] 11/22/21 Acoustics Teacher Relationship Specialty Start Date End Date Bia Cao MD PCP - General Family Medicine 02/05/23 Acoustics Teacher Relationship Specialty Start Date End Date Bia Cao MD [address] [place] [address] PCP - General Family Medicine 04/29/23 Bia Cao MD [address] [place] [address] PCP - [employer] 11/22/21 Source Comments (unrecognize d section and content) In the event this informatio n is protected by the Federal Confidentiality of Alcohol and Drug Abuse Patient Records regulations: The Federal rules restrict any use of the information to criminally investigate or prosecute any alcohol or drug abuse patient.[facility] CenterIn the event this information is protected by the Federal Confidentiality of Alcohol and Drug Abuse Patient Records regulations: The Federal rules restrict any use of the information to criminally investigate or prosecute any alcohol or drug abuse patient.[facility] CenterIn the event this information is protected by the Federal Confidentiality of Alcohol and Drug Abuse Patient Records regulations: The Federal rules restrict any use of the information to criminally investigate or prosecute any alcohol or drug abuse patient.[facility] CenterIn the event this information is protected by the Federal Confidentiality of Alcohol and Drug Abuse Patient Records regulations: The Federal rules restrict any use of the information to criminally investigate or prosecute any alcohol or drug abuse patient.[facility] CenterIn the event this information is protected by the Federal Confidentiality of Alcohol and Drug Abuse Patient Records regulations: The Federal rules restrict any use of the information to criminally investigate or prosecute any alcohol or drug abuse patient.[facility] CenterIn the event this information is protected by the Federal Confidentiality of Alcohol and Drug Abuse Patient Records regulations: The Federal rules restrict any use of the information to criminally investigate or prosecute any alcohol or drug abuse patient.[facility] FOR RECORDS PERTAINING TO PATIENTS WHO [...] BE BASED ON THE PRIMARY CLINICAL RECORDS. [facility]. provides no warranty or guarantee of the accuracy or completeness of information in this document.
[2025-08-06 09:13] VITALS: BP 134/62; PULSE 68; TEMP 36.5; O2SAT 97
[2025-08-06 09:51] VITALS: BP 150/70; BP 162/71; PULSE 76; PULSE 78; O2SAT 93; O2SAT 94
[2025-08-06] MEDS: BUPIVACAINE HCL 0.25% PF 25 MG/10 ML VIAL 8 ML INJ (09:53)
--- NOTE | 2025-08-06 09:55 | W.PM.PROCNOT ---
Date of procedure: 08/06/25 Pre-op diagnosis: Pain due to thoracic spondylosis without myelopathy Post-op diagnosis: same as pre-op Procedure: Procedure: Bilateral T8-9, 9-10 medial branch block Medications: Bupivacaine 0.25% 6cc The patient was seen and examined in the preoperative holding area.? An informed consent was obtained and placed on the chart.? The patient was brought to the medical procedure unit and placed in the prone position.? A timeout was completed verifying correct patient, procedure site, positioning, plan, and special equipment.? Using aseptic technique, the needle was placed at left T8. Under direct fluoroscopic visualization a Quincke-tipped spinal needle was advanced to the junction of the superior articulating process with the transverse process at the designated medial branch segment.? Preceded by negative aspiration, the above-mentioned injectate was placed in 1 mL aliquots.? The procedure was repeated at left T9, 10.? The needle was removed and insertion site was covered. The same procedure, at the same levels, was completed on the right side. The patient was taken to the postprocedural recovery area and monitored for an appropriate length of time before found suitable for discharge in the company of a responsible adult. Anesthesia: Local Surgeon: Adelfo Hansen Pathology: none sent Condition: stable Disposition: no change
== END 2025-08-06 09:57 | disposition home or self-care (01) ==
LOC: SURGOUT 08:56
PROVIDERS: PCP Family Medicine; Visit Provider Anesthesiology
DX: M47.814 Spondylosis without myelopathy or radiculopathy, thoracic region (principal); M54.6 Pain in thoracic spine
CPT/HCPCS: 64490; 64491; J0665

== ENCOUNTER 2025-08-08 10:53 | Outpatient (OUT) | payer MEDICARE, SELFPAY ==
--- OUTSIDE RECORDS SUMMARY | 2025-08-08 11:00 | XMS_ITS | CCD ---
Author Organization [facility] Care Team Providers Care Hand Sizer Name Role Phone LENNY PEDRAZA Unavailable Unavailable AUDREY HORN Unavailable Unavailable AUDREY HORN Unavailable Unavailable LENNY PEDRAZA Unavailable Unavailable NASH, BIA Anny Primary Care Unavailable NASH, BIA Mccormick Primary Care Unavailable Jacob Viveros Unavailable Unavailable Nash GARCIA, Bia Mccormick Primary Care Provider [phone] (Hist), No Pcp Primary Care Provider Unavailkwasi e Oswaldo GARCIA, Corey Castillo Unavailable Oswaldo GARCIA, Corey Castillo Unavailable ROSE VELASQUEZ Attending Unavailable HOOVERMANDI Referring Unavailable HOOVERMANDI Attending Unavailable HOOVERMANDI RUIZ Referring Unavailable Jacob Viveros Unavailable Unavailable Nash GARCIA, Bia Mccormick Primary Care Provider [phone] Nash GARCIA, Bia Anny Unavailable Bia Cao MD Primary Care Provider [phone] Bia Cao MD Primary Care Provider [phone] JOHN JOHNSON Attending Unavailable NASH, BIA F [...] Primary Care Unavailable KEANU, JOHN Referring Unavailable BIA CAO Referring Unavailable BIA CAO Primary Care Unavailable Allergies Allergy Classification Reported Allergen(s) Allergy Type Date of Onset Reaction(s) Facility Amoxicillin / Clavulanate (1 source) Amoxicillin / Clavulanate Drug Allergy 08-14-20 11 Rash [place] Aspartame (1 source) Aspartame Drug Allergy 02-13-20 17 Other: See Comments [place] Clavulanate (1 source) Clavulanate Drug Allergy 02-13-20 17 [facility] egg white (chicken) allergenic extract (1 source) egg white (chicken) allergenic extract Drug Allergy 08-14-20 11 Swelling [place] Lincomycin (1 source) Lincomycin Drug Allergy 11-04-20 16 [facility] NSAIDs (1 source) oxaprozin Drug Allergy 11-04-20 16 [facility] Penicillins (antibiotic) (1 source) Penicillins Drug Allergy 11-04-20 16 [facility] (20 sources) Aspartame; Translations: [ASPARTAME] Drug Allergy 02-13-20 17 Unknown [facility] Healthcare (20 sources) Clavulanate; Translations: [CLAVULANIC ACID] Drug Allergy 02-13-20 17 Rash [facility] (20 sources) Indomethacin; Translations: [INDOMETHACIN] Drug Allergy 05-02-20 21 Unknown, Hypotension [facility] Healthcare (20 sources) Influenza Vaccines Drug Allergy 06-04-20 23 Rash [facility] (20 sources) Lincomycin; Translations: [LINCOMYCIN] Drug Allergy 08-14-20 11 Anaphylaxis, Rash [facility] Healthcare (20 sources) Lincomycin Drug Allergy 12-01-19 22 Unknown [facility] (20 sources) Penicillins; Translations: [PENICILLINS] Drug Allergy 11-04-20 16 [facility] (20 sources) Sulfamethoxazole / Trimethoprim; Translations: [SULFAMETHOXAZOLE-T RIMETHOPRIM] Drug Allergy 10-22-20 23 Hives [facility] (20 sources) Sulfonamides (Antibiotic) Drug Intolerance 11-11-20 22 [facility] ([facility]) Amoxicillin-Pot Clavulanate; Translations: [AMOXICILLIN-POT CLAVULANATE] Drug Allergy 08-14-20 11 Rash [facility] Work Phone: (20 sources) Clemizole; Translations: [CLEMIZOLE] Propensity to adverse reactions 02-13-20 17 Rash [facility] (6 sources) Eggs Or Egg-Derived Products Drug Allergy 08-14-20 11 Swelling, Unknown [facility] (20 sources) Other; Translations: [OTHER] Propensity to adverse reactions 02-13-20 17 Swelling, Other (See Comments) [facility] Work Phone: (20 sources) Poultry Meal Propensity to adverse reactions 03-02-20 23 [facility] (20 sources) Wound Dressing Adhesive Drug Allergy 06-04-20 23 Rash [facility] (20 sources) Adhesive agent; Translations: [ADHESIVE] Drug Allergy 11-04-20 16 Other: See Comments [place] Work Phone: (20 sources) Aspartame Drug Allergy 02-13-20 17 Other: See Comments, Other (See Comments) [place] (20 sources) Clindamycin; Translations: [LINCOSAMIDES] Drug Allergy 02-13-20 17 Anaphylaxis [place] (6 sources) egg white (chicken) allergenic extract; Translations: [EGG WHITE] Drug Allergy 08-14-20 11 Swelling [place] (20 sources) oxaprozin; Translations: [OXAPROZIN] Drug Allergy 11-04-20 16 [facility] (11 sources) Penicillins Drug Allergy 11-04-20 16 Rash [place] (20 sources) Influenza Virus Vaccines; Translations: [INFLUENZA VIRUS VACCINES] Drug Allergy 02-13-20 17 Swelling [place] (20 sources) Egg-Derived Products Drug Allergy 08-14-20 11 Swelling, Unknown [facility] (20 sources) egg shell membrane; Translations: [EGGSHELL MEMBRANE] Propensity to adverse reactions to drug 11-04-20 16 [facility] (9 sources) Penicillins Propensity to adverse reactions to drug 11-04-20 16 Rash [facility] (12 sources) Vwdrqufg-[id number]-[id number] Antimigraine Agents; Translations: [EZEBPUIA-1-CL3 ANTIMIGRAINE AGENTS] Propensity to adverse reactions to drug 02-20-20 25 [facility] (3 sources) chicken allergenic extract; Translations: [POULTRY] Drug Allergy 03-02-20 23 [facility] (3 sources) Sulfonamides (Antibiotic); Translations: [SULFA (SULFONAMIDE ANTIBIOTICS)] Propensity to adverse reactions to drug (disorder) 11-11-20 22 [facility] (1 source) Adhesive agent Propensity to adverse reactions to drug 11-04-20 16 [facility] Current Medications Medication Drug Class(es) [...] every six hours as needed for headache tsckqti-fhdgefpuqvjhr-ihsaqjuy (EXCEDRIN MIGRAINE) 250-250-65 mg per tablet Take 1 tablet by mouth every 6 (six) hours as needed for headaches. Active acetaminophen 325 mg / dichloralphenazone 100 mg / isometheptene 65 mg oral capsule (6 sources) take 1 capsule by mouth every six hours as needed acetaminophen-dichloralphenazone -isometheptene (MIDRIN) 65-100-325 mg per capsule 1 capsule four times daily as needed. Active [id number] 200 actuat albuterol 0.09 mg/actuat metered dose [...] 11 12/12/2024 07/25/2025 Discontinued Start: 12-02-2016 omeprazole (AK ILOSEC) 20 mg capsule 20 mg once [...] by mouth. 11/21/2020 Active polyethylene glycol 3350 09633 mg powder for oral solution (3 sources) [...] Results Test Name Value Interpretation Reference Range [facility] CALCIUMon 07-16-2025 Calcium [Mass/Vol] 9.4 mg/dL Normal 8.5-10.5 [facility] Comment on above: Performed By: #### C A ####[facility] ([facility])[address] [address] VIR CALCIUMon 06-12-2025 Calcium [Mass/Vol] 9.5 mg/dL Normal 8.5-10.5 [facility] Comment on above: Performed By: #### C A ####[facility] ([facility])[address], [place] [address] VIR CALCIUMon 05-15-2025 Calcium [Mass/Vol] 9.7 mg/dL Normal 8.5-10.5 [facility] Comment on above: Performed By: #### C A ####[facility] ([facility])[address] [place] [address] VIR CALCIUMon 04-13-2025 Calcium [Mass/Vol] 9.5 mg/dL Normal 8.5-10.5 [facility] Comment on above: Performed By: #### C A ####[facility] ([facility])[address] [address] VIR CALCIUMon 03-19-2025 Calcium [Mass/Vol] 9.6 mg/dL Normal 8.5-10.5 [facility] Comment on above: Performed By: #### C A ####[facility] ([facility])[address], [place] [address] VIR POCT Urinalysis Auto, W/O Mi croscopyon 02-27-2025 External Poct Urine Blood Negative [facility] External Poct Urine Glucose Negative [facility] External Poct Urine Ketones Negative [facility] External Poct Urine Leukocyte Esterase Negative [facility] External Poct Urine Nitrite Negative [facility] External Poct Urine Ph 5.5 [facility] External Poct Urine Protein 1+ [facility] CALCIUMon 02-14-2025 Calcium [Mass/Vol] 9.3 mg/dL Normal 8.5-10.5 [facility] Comment on above: Performed By: #### 1 7861-6 #### [facility] ([id number]) [address], [address] [place] [address] CT ABDOMEN PELVIS WO IV CONT RASTon [...] UA Negative Negative - 4(70) +++ mg/dL [facility] Blood, UA Positive Negative - 50 Darryl/mcL [facility] Clarity, UA Cloudy [facility] Color, UA Yellow [facility] Glucose, UA Negative Negative - 2000(110) ++++ mg/dL [facility] Interpretation and review of laboratory results Abnormal [facility] Ketones, UA Negative Negative - 160(16) ++++ mg/dL [facility] Leukocytes, UA 3+ Negative - 500+++ Obdulio/mcL [facility] Nitrite, UA Positive Negative - Positive [facility] pH, UA 5 5 - 9 [facility] Protein, UA 2+ Negative - 2000(20) ++++ mg/dL [facility] Spec Grav, UA 1.02 1 - 1.03 [facility] Urobilinogen, UA 1.0 0.2 - 12 mg/dL [facility] - Microbiology an d Antimicrobial susceptibilityon 01-15-2025 SARS-CoV-2 (COVID-19) RNA MICHAEL+probe Ql (Unsp spec) Negative [facility] No Panel Informationon 01-15 FLU A Positive [facility] FLU B Negative [facility] Interpretation and review of laboratory results Abnormal [facility] CALCIUMon 01-11-2025 Calcium [Mass/Vol] 9.8 mg/dL Normal 8.5-10.5 [facility] Comment on above: Performed By: #### 1 7861-6 #### [facility] ([id number]) [address], [address] [place] [address] Urinalysis macro (dipstick) panel (U)on 01-01-2025 Bilirubin, UA Negative Negative - 4(70) +++ mg/dL [facility] Blood, UA Positive Negative - 50 Darryl/mcL [facility] Clarity, UA Cloudy [facility] Color, UA Dark María [facility] Glucose, UA Negative Negative - 2000(110) ++++ mg/dL [facility] Interpretation and review of laboratory results Abnormal [facility] Ketones, UA Negative Negative - 160(16) ++++ mg/dL [facility] Leukocytes, UA 4+ Negative - 500+++ Obdulio/mcL [facility] Nitrite, UA Negative Negative - Positive [facility] pH, UA 5 5 - 9 [facility] Protein, UA 3+ Negative - 2000(20) ++++ mg/dL [facility] Spec Grav, UA 1.02 1 - 1.03 [facility] Urobilinogen, UA 0.2 0.2 - 12 mg/dL [facility] CT BRAIN WO CONTon CT [...] Dharmesh Mittal on 12/23/2024 8:53 PM Normal [facility] CT CERVICAL SPINE WO CONTon [...] Degenerative changes as described. Finalized by Dharmesh iMttal on 12/23/2024 8:44 PM Normal [facility] CT KNEE RT WO CONTon [...] Singh MD on 12/23/2024 9:54 PM Normal [facility] XR CHEST 1 VWon 12-23-2024 [...] Negrete MD on 12/23/2024 8:36 PM Normal [facility] XR HIP RT 2-3 VIEWS [...] Dharmesh Mittal on 12/23/2024 8:41 PM Normal [facility] XR KNEE RT 3 VWSon [...] Dharmesh Mittal on 12/23/2024 8:56 PM Normal [facility] XR SHOULDER RT MIN 2 [...] Negrete MD on 12/23/2024 8:31 PM Normal [facility] Laboratory - Miscellaneous t estson 12-10-2024 Service comment (Unsp spec) [Interp] [facility] Comment on above: This urine was adolfo zed for the presence of WBC, RBC, bacteria, casts, and other formed elements. Only those elements seen were reported. No Panel Informationon 12-10 Performing Organization Information Site ID: QPT Name: [facility] Address: [address] [place] [address], [address] [place] [id number] Director: Angel Noble MD [facility] Healthcare [facility] Urinalysis complete panel (U )on 12-10-2024 Appearance (U) TURBID Abnormal CLEAR [facility] Bacteria LM.HPF (Urine sed) [#/Area] MANY Abnormal NONE SEEN /HPF [facility] Bilirubin Ql (U) Negative NEGATIVE [facility] Color (U) YELLOW YELLOW [facility] Epithelial cells.squamous LM.HPF (Urine sed) [#/Area] NONE SEEN < OR = 5 /HPF [facility] Glucose Ql (U) Negative NEGATIVE [facility] Hemoglobin Ql (U) TRACE Abnormal NEGATIVE [facility] Hyaline casts (Urine sed) [#/Area] NONE SEEN NONE SEEN /LPF [facility] Interpretation and review of laboratory results Abnormal [facility] Ketones Ql (U) Negative NEGATIVE [facility] Leukocyte esterase Test strip Ql (U) 3+ Abnormal NEGATIVE [facility] Nitrite Ql (U) Negative NEGATIVE [facility] pH (U) 6.5 [pH] 5.0 - 8.0 [facility] Protein Ql (U) TRACE Abnormal NEGATIVE [facility] RBC LM.HPF (Urine sed) [#/Area] 0-2 < OR = 2 /HPF [facility] Specific gravity (U) [Rel density] 1.017 1.001 - 1.035 [facility] WBC LM.HPF (Urine sed) [#/Area] PACKED Abnormal < OR = 5 /HPF [facility] Urinalysis macro (dipstick) panel (U)on 12-08-2024 Bilirubin, UA Negative Negative - 4(70) +++ mg/dL [facility] Blood, UA Positive Negative - 50 Darryl/mcL [facility] Clarity, UA Cloudy [facility] Color, UA Yellow [facility] Glucose, UA Negative Negative - 1999(110) ++++ mg/dL [facility] Interpretation and review of laboratory results Abnormal [facility] Ketones, UA Negative Negative - 160(16) ++++ mg/dL [facility] Leukocytes, UA 4+ Negative - 500+++ Obdulio/mcL [facility] Nitrite, UA Negative Negative - Positive [facility] pH, UA 6 5 - 9 [facility] Protein, UA 2+ Negative - 1999(20) ++++ mg/dL [facility] Spec Grav, UA 1.01 1 - 1.03 [facility] Urobilinogen, UA 0.2 0.2 - 12 mg/dL [facility] XR SPINE LUMBAR 2 OR [...] Mendoza MD on 11/28/2024 3:13 PM Normal [facility] ([id number]) 1945 F Date Time Provider Department 10/04/24 ROSE VELASQUEZ [facility] During your visit today, we recorded the following information about you: Jessica Ashley 10/04/2024 3:20 PM Signed General Call Caller : Angela Contact Reason for Call : Did you speak with Dr. Hoover regarding her most recent appt? Patient requesting return call ? Yes Rose Velasquez APRN.ROUTE SALESMAN AND DRIVER 10/06/2024 10:09 AM Signed Voicemail left for Angela at [phone]. Call back number given. 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 My note was forward to Dr. Hoover for review. At this time we recommend follow up and new imaging in 1 year. Rose Velasquez, MSN, SCRAP SAWYER, ROUTE SALESMAN AND DRIVER Certified Nurse Practitioner Allergies As of Date: [...] Fully Assessed Reason for Visit: Patient Question [8097] Prescriptions as of 10/06/2024 - hydrALAZINE (APRESOLINE) [...] Encounter Status:Closed by ROSE VELASQUEZ on 11/15/24 [facility] CNOVon 09-26-2024 CNOV Office Visit ([facility] ) ANGELA RUTH ([id number]) 1945 F Date Time Provider Department 09/26/24 1:45 PM ROSE VELASQUEZ [facility] During your visit today, we recorded the following information about you: Pulse Blood pressure Weight 91/minute 143/81 67 kg Rose Velasquez APRN.ROUTE SALESMAN AND DRIVER 09/26/2024 3:27 PM [facility] NEURO-ONCOLOGY OUTPATIENT CLINIC [...] bedtime (Pat (more content not included)... [facility] Brain WO and W contrast I Von 09-26-2024 IMPRESSION: Stable size of a RIGHT petrous ridge presumed meningioma compared to 03/02/2024. Sales Representative [employer]: [facility] Transcribe Date/Time: Sep 26 2024 2:10P Dictated by : MAUREEN PEARL MD This examination was interpreted and the report reviewed and electronically signed by: MAUREEN PEARL MD on Sep 26 2024 2:14PM [facility] DIVISION OF RADIOLOGY * * *Final Report* * * DATE OF EXAM: Sep 26 2024 12:29PM [facility] 0295 - MRI BRAIN WO/W IVCON [...] DIVISION OF RADIOLOGY Provider, [facility] - 09/26/2024 * * *Final Report* * * DATE OF EXAM: Sep 26 2024 12:29PM [facility] 0295 - MRI BRAIN WO/W IVCON [...] petrous ridge presumed meningioma compared to 03/02/2024. [employer] Representative [employer]: ALLYSSA Transcribe Date/Time: Sep 26 2024 2:10P Dictated by : MAUREEN PEARL MD This examination was interpreted and the report reviewed and electronically signed by: MAUREEN PEARL MD on Sep 26 2024 2:14PM EST [place] Radiology Study observation (narrative) [place] MR Brain WO and W contrast I VOrdered By: [facility] Provider on 09-26-2024 [place] MRI BRAIN WO/W IVCONon 09-26 MRI BRAIN WO/W IVCON * * *Final Report* * * DATE OF EXAM: Sep 26 2024 12:29PM [facility] 0295 - MRI BRAIN WO/W IVCON [...] petrous ridge presumed meningioma compared to 03/02/2024. [employer] Representative [employer]: PSCB Transcribe Date/Time: Sep 26 2024 2:10P Dictated by : MAUREEN PEARL MD This examination was interpreted and the report reviewed and electronically signed by: MAUREEN PEARL MD on Sep 26 2024 2:14PM EST [id number] [facility] - Microbiology an d Antimicrobial susceptibilityon 08-16-2024 SARS-CoV-2 (COVID-19) RNA MICHAEL+probe Ql (Unsp spec) Negative [facility] No Panel Informationon 08-16 FLU A Negative [facility] FLU B Negative [facility] Interpretation and review of laboratory results Normal [facility] XR Thoracic spine 3 Viewson 07-11-2024 [...] report is generated using voice recognition reporting ([employer]). On occasion PowerScribe erroneously drops words from [...] report is generated using voice recognition reporting ([employer]). On occasion Power[employer] erroneously drops words from the report or replaces the spoken word with similar sounding words. Please call with any questions/concerns regarding this report.* Dictated and transcribed 07/11/2024/tm This report has been electronically signed and approved by the interpreting radiologist. Electronically Signed Shubham Almodovar II, M.D. 2024-07-11 10:01:04 [facility] XR Thoracic spine 3 ViewsOrd ered By: Shubham Almodovar on 07-11-2024 [facility] Work Phone: Urinalysis macro (dipstick) panel (U)on 07-10-2024 Bilirubin, UA Negative Negative - 4(70) +++ mg/dL [facility] Blood, UA Positive Negative - 50 Darryl/mcL [facility] Clarity, UA Cloudy [facility] Color, UA Yellow [facility] Glucose, UA Negative Negative - 2000(110) ++++ mg/dL [facility] Interpretation and review of laboratory results Abnormal [facility] Ketones, UA Negative Negative - 160(16) ++++ mg/dL [facility] Leukocytes, UA 3+ Negative - 500+++ Obdulio/mcL [facility] Nitrite, UA Positive Negative - Positive [facility] pH, UA 6.5 5 - 9 [facility] Protein, UA 2+ Negative - 1999(20) ++++ mg/dL [facility] Spec Grav, UA 1.010 1 - 1.03 [facility] Urobilinogen, UA 1.0 0.2 - 12 mg/dL [facility] XR Thoracic spine 3 Viewson 07-10-2024 Radiology Study observation (narrative) [facility] CNOVon 04-04-2024 CNOV Office Visit ([facility] ) ANGELA RUTH ([id number]) 1945 F Date Time Provider Department 04/04/24 [...] Neuro- Oncology [facility] AND [facility] [place] CC: Patient Care Team: Bia Cao as PCP ([facility]) Corey Chacon MD as NI Referring [...] 6 months with a repeat MRI scan ([place]/West side preference) and clinic visit with one of our skull base team advance practice providers (Danni/West side preference). 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 The patient [...] contrast and shows a 1.2 cm R LIFE SKILLS SPECIALIST contrast-enhancing lesion concerning for either schwannoma or meningioma- no associated mass effect or edema. The patient takes ASA 81 mg daily for cardioprotection per her PCP. The patient has been using a cane for the last 5-6 years. The patient reports that ~6 weeks ago, she walked into her garage door and fell. The patient has not seen an multi skilled operator or a vestibular therapist. Past Medical [...] Units once (more content not included)... Normal [facility] 03-24-2024 [facility] Telephone (NIQ) ANGELA RUTH ([id number]) 1945 F Date Time Provider Department 03/24/24 [...] records: Sent with referral and pulled from [facility] Triage: Required, forwarded to [facility] by telephone encounter sent to [facility] Scheduling Triage. Financial clearance: Not required to schedule Rose Velasquez APRN.ROUTE SALESMAN AND DRIVER 03/28/2024 10:00 AM Signed Time Frame: First available Provider: Kiko Landrum Soni Referring: Corey Chacon MD Images to be requested from [facility] Dx: Right CPA mass Patient: Angela Ruth Address: Angela Ruth [id number] [place] [address] [place] [address] Per Triage: HISTORY OF PRESENT ILLNESS Angela [...] extracranial soft tissues are unremarkable. Rose Velasquez APRN.ROUTE SALESMAN AND DRIVER March 28, 2024 Etelvina Trujillo 03/28/2024 10:12 AM Signed Called patient to schedule an appointment. No ans/left message to call the office back. Appointment scheduled: 04/04/2024 10:30 AM (Arrive by 10:15 AM) Mandi Hoover MD [facility] RAMAN Alonso Janette 04/06/2024 10:40 AM Addendum Imaging requested from [facility]. DOS requested: MRI 03/02/2024 CT Scan 02/11 2024 AND 03/09/2023, 02/11/2024. All images viewable in [employer] Allergies As of Date: 03/24/2024 Noted Allergy [...] Records [3576] Cmt: External referral to [facility] triage [Other] Nurse Triage Call [185] Appointment [186] Primary Visit Diagnosis:Brain mass [G93.89] [G93.89] Prescriptions as of 04/06/2024 - hydrALAZINE (APRESOLINE) 100 mg tablet take 1 tablet by mouth twice a day then MAY TAKE ADDITIONAL (50 M... (REFER (more content not included)... [facility] CT Abdomen/Pelvis w + w/o Co [...] by Felix Dominguez on 12/07/2022 1159 Normal [facility] XR HAND LEFT (MIN 3 VIEWS)on 11-07-2022 [...] Matt Cowart MD 11/07/22 Final result Normal [facility] [place] [facility] XR HAND LEFT (MIN 3 VIEWS) 3 [...] Matt Cowart MD 11/07/22 Final result Normal [facility] [place] [facility] XR Chest 2 Views*on 09-10-20 XR Chest [...] by Bartolome Monson on 09/10/[address] [facility] Complete Blood Count with Au to Diffon 12-11-2021 Basophils (Bld) [#/Vol] 0.07 10*3/uL Normal 0.00-0.20 [facility] Comment on above: Performed By: #### C MP, CBCAD #### [facility] [address] [place], [place] [id number] Basophils/100 WBC (Bld) 0.9 % Normal [facility] Comment on above: Performed By: #### C MP, CBCAD #### [facility] [address] [place], [place] [id number] Eosinophils (Bld) [#/Vol] 0.17 10*3/uL Normal 0.02-0.50 [facility] Comment on above: Performed By: #### C LG, CBCAD #### [facility] [address] [place], [place] [id number] Eosinophils/100 WBC (Bld) 2.3 % Normal [facility] Comment on above: Performed By: #### C MP, CBCAD #### [facility] [address] [place], [place] [id number] Erythrocyte distribution width (RBC) [Ratio] 16.4 % High 11.0-15.0 [facility] Comment on above: Performed By: #### C MP, CBCAD #### [facility] [address] [place], [place] [id number] Hematocrit (Bld) [Volume fraction] 42.9 % Normal 35.0-47.0 [facility] Comment on above: Performed By: #### C MP, CBCAD #### [facility] [address] [place], [place] [id number] Hemoglobin (Bld) [Mass/Vol] 13.5 g/dL Normal 11.6-15.5 [facility] Comment on above: Performed By: #### C MP, CBCAD #### [facility] [address] [place], [place] [id number] Lymphocytes (Bld) [#/Vol] 2.7 10*3/uL Normal 0.9-3.9 [facility] Comment on above: Performed By: #### C MP, CBCAD #### [facility] [address] [place], [place] [id number] Lymphocytes/100 WBC (Bld) 36.1 % Normal [facility] Comment on above: Performed By: #### C MP, CBCAD #### [facility] [address] [place], [place] [id number] MCH (RBC) [Entitic mass] 27.7 pg Normal 27.0-33.0 [facility] Comment on above: Performed By: #### C MP, CBCAD #### [facility] [address] [place], [place] [id number] MCHC (RBC) [Mass/Vol] 31.5 g/dL Low 32.0-36.0 [facility] Comment on above: Performed By: #### C MP, CBCAD #### [facility] [address] [place], [place] [id number] MCV (RBC) [Entitic vol] 88 fL Normal 80-100 [facility] Comment on above: Performed By: #### C MP, CBCAD #### [facility] [address] [place], [place] [id number] Monocytes (Bld) [#/Vol] 0.8 10*3/uL Normal 0.2-0.9 [facility] Comment on above: Performed By: #### C MP, CBCAD #### [facility] [address] [place], [place] [id number] Monocytes/100 WBC (Bld) 10.8 % Normal [facility] Comment on above: Performed By: #### C MP, CBCAD #### [facility] [address] [place], [place] [id number] Neutrophils (Bld) [#/Vol] 3.7 10*3/uL Normal 1.5-7.8 [facility] Comment on above: Performed By: #### C MP, CBCAD #### [facility] [address] [place], [place] [id number] Neutrophils/100 WBC (Bld) 49.2 % Normal [facility] Comment on above: Performed By: #### C MP, CBCAD #### [facility] [address] [place], [place] [id number] Platelet mean volume (Bld) [Entitic vol] 11.00 fL Normal 7.50-12.50 [facility] Comment on above: Performed By: #### C MP, CBCAD #### [facility] [address] [place], [place] [id number] Platelets (Bld) [#/Vol] 246 10*3/uL Normal 140-400 [facility] Comment on above: Performed By: #### C MP, CBCAD #### [facility] [address] [place], [place] [id number] RBC (Bld) [#/Vol] 4.88 10*6/uL Normal 3.90-5.20 [facility] Comment on above: Performed By: #### C MP, CBCAD #### [facility] [address] [place], [place] [id number] RDW-SD 53.1 fL High 37.0-50.0 [facility] Comment on above: Performed By: #### C MP, CBCAD #### [facility] [address] [place], [place] [id number] WBC (Bld) [#/Vol] 7.5 10*3/uL Normal 3.8-11.0 [facility] [place] [facility] Comment on above: Performed By: #### C MP, CBCAD #### [facility] [address] [place], [place] [id number] Comprehensive Metabolic Pane becky 12-11-2021 Albumin [Mass/Vol] 4.2 g/dL Normal 3.6-5.1 [facility] [place] [facility] Comment on above: Performed By: #### C MP, CBCAD #### [facility] [address] [place], [place] [id number] Albumin/Globulin [Mass ratio] 1.7 {ratio} Normal 1.0-2.5 [facility] Comment on above: Performed By: #### C MP, CBCAD #### [facility] [address] [place], [place] [id number] ALP [Catalytic activity/Vol] 71 U/L Normal 35-119 [facility] Comment on above: Performed By: #### C MP, CBCAD #### [facility] [address] [place], [place] [id number] ALT [Catalytic activity/Vol] 12 U/L Normal 6-33 [facility] Comment on above: Result Comment: 10/22 Female reference range changed. Performed By: #### C MP, CBCAD #### [facility] [address] [place], [place] [id number] Anion gap [Moles/Vol] 18 mmol/L Normal 12-20 [facility] Comment on above: Result Comment: Effe ctive 11/27/2019 reference range changed. Performed By: #### C MP, CBCAD #### [facility] [address] [place], [place] [id number] AST [Catalytic activity/Vol] 15 U/L Normal 9-34 [facility] Comment on above: Performed By: #### C MP, CBCAD #### [facility] [address] [place], [place] [id number] Bilirubin [Mass/Vol] 0.33 mg/dL Normal 0.30-1.20 [facility] Comment on above: Performed By: #### C MP, CBCAD #### [facility] [address] [place], [place] [id number] BUN/CREA 35 Ratio High 6-22 [facility] Comment on above: Performed By: #### C MP, CBCAD #### [facility] [address] [place], [place] [id number] Calcium [Mass/Vol] 9.4 mg/dL Normal 8.6-10.2 [facility] Comment on above: Performed By: #### C MP, CBCAD #### [facility] [address] [place], [place] [id number] Chloride [Moles/Vol] 106 mmol/L Normal 98-107 [facility] Comment on above: Performed By: #### C MP, CBCAD #### [facility] [address] [place], [place] [id number] CO2 [Moles/Vol] 24 mmol/L Normal 20-31 [facility] Comment on above: Performed By: #### C MP, CBCAD #### [facility] [address] [place], [place] [id number] Creatinine [Mass/Vol] 0.9 mg/dL Normal 0.6-1.4 [facility] Comment on above: Performed By: #### C MP, CBCAD #### [facility] [address] [place], [place] [id number] eGFRAA 70 mL/min/1.73m2 Normal >60 [facility] Comment on above: Performed By: #### C MP, CBCAD #### [facility] [address] [place], [place] [id number] eGFRNAA 58 mL/min/1.73m2 Low >60 [facility] Comment on above: Performed By: #### C MP, CBCAD #### [facility] [address] [place], [place] [id number] Globulin (S) [Mass/Vol] 2.5 g/dL Normal 1.9-3.7 [place] [facility] Comment on above: Performed By: #### C MP, CBCAD #### [facility] [address] [place], [place] [id number] Glucose [Mass/Vol] 84 mg/dL Normal 65-99 Pawan fitz[facility] [place] [facility] Comment on above: Result Comment: For FASTING Glucose --- ADA reference ranges: Normal 65-99 mg/dl Prediabetes 100-125 Diabetes >/= 126 Performed By: #### C MP, CBCAD #### [facility] [address] [place], [place] [id number] Potassium [Moles/Vol] 4.3 mmol/L Normal 3.5-5.5 [facility] Comment on above: Performed By: #### C MP, CBCAD #### [facility] [address] [place], [place] [id number] Protein [Mass/Vol] 6.7 g/dL Normal 6.1-8.1 [facility]awan fitz[facility] [place] [facility] Comment on above: Performed By: #### C MP, CBCAD #### [facility] [address] [place], [place] [id number] Sodium [Moles/Vol] 143 mmol/L Normal 135-146 Pawan fitz[facility] [place] [facility] Comment on above: Performed By: #### C MP, CBCAD #### [facility] [address] [place], [place] [id number] Urea nitrogen [Mass/Vol] 33 mg/dL High 7-25 [facility] Comment on above: Performed By: #### C MP, CBCAD #### [facility] [address] [place], [place] [id number] Calciumon 06-20-2019 Calcium [Mass/Vol] 10.0 mg/dL Normal 8.4-10.2 [facility] Comment on above: Performed By: #### 1 030, 1035, 4500, 4510, 4520, 4581 #### [facility] Unless Otherwise Noted [address] [place] [address] / COLA #4724/DONNIEIA # [id number] Creatinineon 06-20-2019 Creatinine [Mass/Vol] 0.9 mg/dL Normal 0.5-1.0 [facility] Comment on above: Performed By: #### 1 030, 1035, 4500, 4510, 4520, 4581 #### [facility] Unless Otherwise Noted [address] [address] / COLA #4724/CLIA # [id number] Creatinine [Mass/Vol] 74.8 Kg Normal [facility] Comment on above: Performed By: #### 1 030, 1035, 4500, 4510, 4520, 4581 #### [facility] Unless Otherwise Noted [address] [address] / COLA #4724/CLIA # [id number] Creatinine [Mass/Vol] 64.8 ml/m1.73 Normal [facility] Comment on above: Performed By: #### 1 030, 1035, 4500, 4510, 4520, 4581 #### [facility] Unless Otherwise Noted [address] [address] / COLA #4724/CLIA # [id number] Creatinine [Mass/Vol] 65.1 ml/m1.73 Normal [facility] Comment on above: Performed By: #### 1 030, 1035, 4500, 4510, 4520, 4581 #### [facility] Unless Otherwise Noted [address] [address] / COLA #4724/CLIA # [id number] Creatinine [Mass/Vol] 78.7 ml/m1.73 Normal [facility] Comment on above: Performed By: #### 1 030, 1035, 4500, 4510, 4520, 4581 #### [facility] Unless Otherwise Noted [address] [facility] [address] [place] [address] / COLA #4724/CLIA # [id number] FT3on 06-20-2019 FT3 2.80 pg/mL Normal 2.45-5.93 [facility] Comment on above: Performed By: #### 1 030, 1035, 4500, 4510, 4520, 4581 #### [facility] Unless Otherwise Noted [address] [address] / COLA #4724/CLIA # [id number] FT4on 06-20-2019 Free T4 [Mass/Vol] 1.93 ng/dL Normal 0.78-2.44 [facility] Comment on above: Performed By: #### 1 030, 1035, 4500, 4510, 4520, 4581 #### [facility] Unless Otherwise Noted [address] [address] / COLA #4724/CLIA # [id number] TSHon 06-20-2019 TSH Qn 0.57 uIU/ml Normal 0.47-4.68 [facility] Comment on above: Performed By: #### 1 030, 1035, 4500, 4510, 4520, 4581 #### [facility] Unless Otherwise Noted [address] [facility] [address] [place] [address] / COLA #4724/CLIA # [id number] VITAMIN D 25on 06-20-2019 VITAMIN D 25 51.5 ng/ml Normal 30.0-100.0 [facility] Comment on above: Result Comment: Defi cient <20 Insufficient 20-<30 Sufficient 30-100 Potiential Toxicity >100 Performed By: #### 1 030, 1035, 4500, 4510, 4913, 4581 #### [facility] [place] Unless Otherwise Noted [address] [facility] [address] [place] [address] / MARÍA #4724/ABISAI # [id number] Basic Metabolic Profon 05-06 (cont.) Normal [facility] Comment on above: Result Comment: Aver age GFR for 70 or more years old: 75 mL/min/1.73sq mChronic Kidney Disease: <60 mL/min/1.73sq mKidney failure: <15 mL/min/1.73sq meGFR calculated using average adult body mass. Additional eGFR calculator available at:http://[email or web address] [email or web address]_[email or web address].htmPerformed at [facility] [address] [place] [address] Performed By: #### C DP, BMP ####[facility] [place] [address] Anion gap 14 mmol/L Normal 9-17 [facility] Comment on above: Performed By: #### C DP, BMP ####[place] [address] [place] [address] Calcium 9.6 mg/dL Normal 8.6-10.4 [facility] Comment on above: Performed By: #### C DP, BMP ####[facility] [place] [address] Chloride 106 mmol/L Normal 98-107 [facility] Comment on above: Performed By: #### C DP, BMP ####[address] [address] CO2 26 mmol/L Normal 20-31 [facility] Comment on above: Performed By: #### C DP, BMP ####[address] [address] Creatinine 0.91 mg/dL High 0.50-0.90 [facility] Comment on above: Performed By: #### C DP, BMP ####[facility] [place] [address] eGFR (non-black) mL/min/{1.73_m2} Normal >60 [facility] Comment on above: Performed By: #### C DP, BMP ####[facility] [place] [address].[place] [address] Glucose mass conc 99 mg/dL Normal 70-99 [facility] Comment on above: Performed By: #### C DP, BMP ####[facility] [place] [address].[place] [address] Potassium molar conc 4.2 mmol/L Normal 3.7-5.3 [facility] Comment on above: Performed By: #### C DP, BMP ####[facility] [place] [address] Sodium 146 mmol/L High 135-144 [facility] Comment on above: Performed By: #### C DP, BMP ####[facility] [place] [address].[place] [address] Urea nitrogen 21 mg/dL Normal 8-23 [facility] Comment on above: Performed By: #### C DP, BMP ####[facility] [place] [address] BUN/CRE Ratio NOT REPORTED Normal 9-20 [facility] Comment on above: Performed By: #### C DP, BMP ####[facility] [place] [address].[place] [address] Staging: NOT REPORTED Normal [facility] Comment on above: Performed By: #### C DP, BMP ####[facility] [place] [address] CBC with Diffon 05-06-2018 Abs. Basophil 0.10 k/uL Normal 0.0-0.2 [facility] Comment on above: Result Comment: Perf [facility]med at [facility] [address] [place] [address] Performed By: #### C DP, BMP ####[facility] [place] [address] Abs.Neutrophil (Seg) 4.00 k/uL Normal 1.3-9.1 [facility] Comment on above: Performed By: #### C DP, BMP ####[facility] [place] [address] Basophils/100 WBC Auto (Bld) 1 % Normal 0-2 [facility] Comment on above: Performed By: #### C DP, BMP ####[facility] [place] [address] Eosinophils 0.20 10*3/uL Normal 0.0-0.4 [facility] Comment on above: Performed By: #### C DP, BMP ####[facility] [facility] [place] [address] Eosinophils/100 leukocytes 2 % Normal 0-4 [facility] Comment on above: Performed By: #### C DP, BMP ####[facility] [place] [address] Erythrocyte distribution width Auto Ratio (RBC) 13.9 % Normal 11.5-14.9 [facility] Comment on above: Performed By: #### C DP, BMP ####[facility] [place] [address] Erythrocytes (RBC) 4.68 10*6/uL Normal 4.0-5.2 [facility] Comment on above: Performed By: #### C DP, BMP ####[facility] [place] [address] Hematocrit (HCT) 41.8 % Normal 36-46 [facility] Comment on above: Performed By: #### C DP, BMP ####[address] [address] Hemoglobin mass conc (Bld) 13.7 g/dL Normal 12.0-16.0 [facility] Comment on above: Performed By: #### C DP, BMP ####[address] [address] Lymphocytes 3.20 10*3/uL Normal 1.0-4.8 [facility] Comment on above: Performed By: #### C DP, BMP ####[address] [address] Lymphocytes/100 leukocytes 39 % Normal 24-44 [facility] Comment on above: Performed By: #### C DP, BMP ####[address] [address] MCH 29.3 pg Normal 26-34 [facility] Comment on above: Performed By: #### C DP, BMP ####[address] [address] MCHC mass conc (RBC) 32.8 g/dL Normal 31-37 [facility] Comment on above: Performed By: #### C DP, BMP ####[address] [address] MCV 89.3 fL Normal 80-100 [facility] Comment on above: Performed By: #### C DP, BMP ####[address] [address] Monocytes 0.90 10*3/uL Normal 0.1-1.3 [facility] Comment on above: Performed By: #### C DP, BMP ####[facility] [place] [address] Monocytes/100 leukocytes 11 % High 1-7 [facility] Comment on above: Performed By: #### C DP, BMP ####[facility] [place] [address] Neutrophil (Seg) 47 % Normal 36-66 [facility] Comment on above: Performed By: #### C DP, BMP ####[facility] [place] [address] Platelet mean volume (PMV) 10.3 fL Normal 6.0-12.0 [facility] Comment on above: Performed By: #### C DP, BMP ####[facility] [facility] [place] [address] Platelets 232 10*3/uL Normal 150-450 [facility] Comment on above: Performed By: #### C DP, BMP ####[facility] [place] [address].[place] [address] WBC (Leukocytes) 8.4 10*3/uL Normal 3.5-11.0 [facility] Comment on above: Performed By: #### C DP, BMP ####[facility] [place], [place] [address] [facility] [place] [address] Auto Diff Performed NOT REPORTED Normal [facility] Comment on above: Performed By: #### C DP, BMP ####[facility] [place], [place] [address]jenna [place] [address] Erythrocyte morphology NOT REPORTED Normal [facility] Comment on above: Performed By: #### C DP, BMP ####[facility] [facility] [place] [address] Erythrocytes (RBC) NOT REPORTED Normal [facility] Comment on above: Performed By: #### C DP, BMP ####[facility] [facility] [place] [address] Granulocytes/100 WBC (Bld) NOT REPORTED Normal 0.00-0.30 [facility] Comment on above: Performed By: #### C DP, BMP ####[facility] [facility] [place] [address] Immature granulocytes #/vol (Bld) NOT REPORTED Normal 0 [facility] Comment on above: Performed By: #### C DP, BMP ####[facility] [place] [address].[place] [address] Platelets NOT REPORTED Normal [facility] Comment on above: Performed By: #### C DP, BMP ####[facility] [place] [address] WBC Morphology NOT REPORTED Normal [facility] Comment on above: Performed By: #### C DP, BMP ####[facility] [place] [address] Vital Signs Date Time Vital Sign Value Performing Clinician Facility 07-20-2025 13: Body height 157.5 cm Pfo 1 [facility] 07-20-2025 13: Body mass index (BMI) [Ratio] 24.94 kg/m2 Pfo 1 [facility] 07-20-2025 13: Body temperature 98.49 [degF] Pfo 1 [facility] 07-20-2025 13: Body weight 61.87 kg Pfo 1 [facility] 07-20-2025 13:[address] Diastolic blood pressure 52 mm[Hg] Pfo 1 [facility] 07-20-2025 13:14-0400 Heart rate 71 /min Pfo 1 [facility] 07-20-2025 13:14-0400 Respiratory rate 16 /min Pfo 1 [facility] 07-20-2025 13:14-0400 SaO2% (BldA) [Mass fraction] 95 % Pfo 1 [facility] 07-20-2025 13:14-0400 Systolic blood pressure 116 mm[Hg] Pfo 1 [facility] 07-10-2025 13:02-0400 Body height 160 cm Bia Cao MD Work Phone: [facility] 07-10-2025 13:02-0400 Body mass index (BMI) [Ratio] 24.16 kg/m2 Bia Cao MD Work Phone: [facility] 07-10-2025 13:02-0400 Body weight 61.87 kg Bia Cao MD Work Phone: [facility] 07-10-2025 13:02-0400 Diastolic blood pressure 68 mm[Hg] Bia Cao MD Work Phone: [facility] 07-10-2025 13:02-0400 Heart rate 71 /min Bia Cao MD Work Phone: [facility] 07-10-2025 13:02-0400 Respiratory rate 18 /min Bia Cao MD Work Phone: [facility] 07-10-2025 13:02-0400 SaO2% (BldA) [Mass fraction] 98 % Bia Cao MD Work Phone: [facility] 07-10-2025 13:02-0400 Systolic blood pressure 122 mm[Hg] Bia Cao MD Work Phone: [facility] 06-13-2025 13:57-0400 Body height 157.5 cm Randall WILKINSON Work Phone: [facility] 06-13-2025 13:57-0400 Body mass index (BMI) [Ratio] 25.6 kg/m2 Randall WILKINSON Work Phone: [facility] 06-13-2025 13:57-0400 Body weight 63.5 kg Randall WILKINSON Work Phone: [facility] 06-13-2025 13:57-0400 Diastolic blood pressure 62 mm[Hg] Randall WILKINSON Work Phone: [facility] 06-13-2025 13:57-0400 Heart rate 74 /min Randall WILKINSON Work Phone: [facility] 06-13-2025 13:57-0400 Systolic blood pressure 103 mm[Hg] Randall Jauregui PA Work Phone: [facility] 06-13-2025 12:30-0400 Body height 157.5 cm Pfo 1 [facility] 06-13-2025 12:30-0400 Body mass index (BMI) [Ratio] 25.71 kg/m2 Pfo 1 [facility] 06-13-2025 12:30-0400 Body temperature 97.5 [degF] Pfo 1 [facility] 06-13-2025 12:30-0400 Body weight 63.78 kg Pfo 1 [facility] 06-13-2025 12:30-0400 Diastolic blood pressure 46 mm[Hg] Pfo 1 [facility] 06-13-2025 12:30-0400 Heart rate 68 /min Pfo 1 [facility] 06-13-2025 12:30-0400 Respiratory rate 16 /min Pfo 1 [facility] 06-13-2025 12:30-0400 SaO2% (BldA) [Mass fraction] 98 % Pfo 1 [facility] 06-13-2025 12:30-0400 Systolic blood pressure 133 mm[Hg] Pfo 1 [facility] 05-16-2025 10:10-0400 Body height 157.5 cm Pfo 1 [facility] 05-16-2025 10:10-0400 Body mass index (BMI) [Ratio] 25.86 kg/m2 Pfo 1 [facility] 05-16-2025 10:10-0400 Body temperature 97.81 [degF] Pfo 1 [facility] 05-16-2025 10:10-0400 Body weight 64.14 kg Pfo 1 [facility] 05-16-2025 10:10-0400 Diastolic blood pressure 59 mm[Hg] Pfo 1 [facility] 05-16-2025 10:10-0400 Heart rate 77 /min Pfo 1 [facility] 05-16-2025 10:10-0400 Respiratory rate 16 /min Pfo 1 [facility] 05-16-2025 10:10-0400 SaO2% (BldA) [Mass fraction] 98 % Pfo 1 [facility] 05-16-2025 10:10-0400 Systolic blood pressure 145 mm[Hg] Pfo 1 [facility] 04-18-2025 13:24-0400 Body height 157.5 cm John Johnson MD Work Phone: [facility] 04-18-2025 13:24-0400 Body mass index (BMI) [Ratio] 26.31 kg/m2 John Johnson MD Work Phone: [facility] 04-18-2025 13:24-0400 Body weight 65.27 kg John Johnson MD Work Phone: [facility] 04-18-2025 13:24-0400 Diastolic blood pressure 68 mm[Hg] John Johnson MD Work Phone: [facility] 04-18-2025 13:24-0400 Heart rate 73 /min John Johnson MD Work Phone: [facility] 04-18-2025 13:24-0400 Systolic blood pressure 114 mm[Hg] John Johnson MD Work Phone: [facility] 04-18-2025 10:18-0400 Body height 157.5 cm Pfo 1 [facility] 04-18-2025 10:18-0400 Body mass index (BMI) [Ratio] 26.48 kg/m2 Pfo 1 [facility] 04-18-2025 10:18-0400 Body temperature 98.1 [degF] Pfo 1 [facility] 04-18-2025 10:18-0400 Body weight 65.68 kg Pfo 1 [facility] 04-18-2025 10:18-0400 Diastolic blood pressure 51 mm[Hg] Pfo 1 [facility] 04-18-2025 10:18-0400 Heart rate 77 /min Pfo 1 [facility] 04-18-2025 10:18-0400 Respiratory rate 15 /min Pfo 1 [facility] 04-18-2025 10:18-0400 SaO2% (BldA) [Mass fraction] 96 % Pfo 1 [facility] 04-18-2025 10:18-0400 Systolic blood pressure 126 mm[Hg] Pfo 1 [facility] 04-09-2025 13:33-0400 Body height 160 cm Bia Cao MD Work Phone: [facility] 04-09-2025 13:33-0400 Body mass index (BMI) [Ratio] 25.86 kg/m2 Bia Cao MD Work Phone: [facility] 04-09-2025 13:33-0400 Body weight 66.22 kg Bia Cao MD Work Phone: [facility] 04-09-2025 13:33-0400 Diastolic blood pressure 62 mm[Hg] Bia Cao MD Work Phone: [facility] 04-09-2025 13:33-0400 Heart rate 75 /min Bia Cao MD Work Phone: [facility] 04-09-2025 13:33-0400 Respiratory rate 18 /min Bia Cao MD Work Phone: [facility] 04-09-2025 13:33-0400 SaO2% (BldA) [Mass fraction] 96 % Bia Cao MD Work Phone: [facility] 04-09-2025 13:33-0400 Systolic blood pressure 124 mm[Hg] Bia Cao MD Work Phone: [facility] 03-21-2025 10:37-0400 Body height 157.5 cm Pfo 1 [facility] 03-21-2025 10:37-0400 Body mass index (BMI) [Ratio] 26.95 kg/m2 Pfo 1 [facility] 03-21-2025 10:37-0400 Body temperature 97.81 [degF] Pfo 1 [facility] 03-21-2025 10:37-0400 Body weight 66.86 kg Pfo 1 [facility] 03-21-2025 10:37-0400 Diastolic blood pressure 62 mm[Hg] Pfo 1 [facility] 03-21-2025 10:37-0400 Heart rate 63 /min Pfo 1 [facility] 03-21-2025 10:37-0400 Respiratory rate 15 /min Pfo 1 [facility] 03-21-2025 10:37-0400 SaO2% (BldA) [Mass fraction] 99 % Pfo 1 [facility] 03-21-2025 10:37-0400 Systolic blood pressure 149 mm[Hg] Pfo 1 [facility] 02-27-2025 14:30-0400 Body height 157.5 cm Randall WILKINSON Work Phone: [facility] 02-27-2025 14:30-0400 Body mass index (BMI) [Ratio] 26.89 kg/m2 Randall WILKINSON Work Phone: [facility] 02-27-2025 14:30-0400 Body weight 66.68 kg Randall WILKINSON Work Phone: [facility] 02-27-2025 14:30-0400 Diastolic blood pressure 59 mm[Hg] Randall WILKINSON Work Phone: [facility] 02-27-2025 14:30-0400 Heart rate 85 /min Randall WILKINSON Work Phone: [facility] 02-27-2025 14:30-0400 Systolic blood pressure 97 mm[Hg] Randall WILKINSON Work Phone: [facility] 02-16-2025 13:05-0400 Body height 157.5 cm Pfo 1 [facility] 02-16-2025 13:05-0400 Body mass index (BMI) [Ratio] 27.03 kg/m2 Pfo 1 [facility] 02-16-2025 13:05-0400 Body temperature 98.4 [degF] Pfo 1 [facility] 02-16-2025 13:05-0400 Body weight 67.04 kg Pfo 1 [facility] 02-16-2025 13:05-0400 Diastolic blood pressure 49 mm[Hg] Pfo 1 [facility] 02-16-2025 13:05-0400 Heart rate 85 /min Pfo 1 [facility] 02-16-2025 13:05-0400 Respiratory rate 18 /min Pfo 1 [facility] 02-16-2025 13:05-0400 SaO2% (BldA) [Mass fraction] 96 % Pfo 1 [facility] 02-16-2025 13:05-0400 Systolic blood pressure 123 mm[Hg] Pfo 1 [facility] 02-12-2025 08:08-0400 Body height 157.5 cm Yoanna Dorsey APRN-[employer] Work Phone: [facility] 02-12-2025 08:08-0400 Body mass index (BMI) [Ratio] 27.22 kg/m2 Yoanna Dorsey APRN-[employer] Work Phone: [facility] 02-12-2025 08:08-0400 Body weight 67.5 kg Yoanna Willian SANTOSN-[employer] SAL[employer] Work Phone: [facility] 02-12-2025 08:08-0400 Diastolic blood pressure 78 mm[Hg] Yoanna Dorsey APRN-[employer] Work Phone: [facility] 02-12-2025 08:08-0400 Heart rate 77 /min Yoanna Dorsey APRN[employer] Work Phone: [facility] 02-12-2025 08:08-0400 Systolic blood pressure 116 mm[Hg] Yoanna Dorsey SCRAP [employer] Work Phone: [facility] 01-23-2025 16:22-0500 Body height 160 cm Bia Cao MD Work Phone: [facility] 01-23-2025 16:22-0500 Body mass index (BMI) [Ratio] 25.37 kg/m2 Bia Cao MD Work Phone: [facility] 01-23-2025 16:22-0500 Body temperature 97.39 [degF] Bia Cao MD Work Phone: [facility] 01-23-2025 16:22-0500 Body weight 64.95 kg Bia Cao MD Work Phone: [facility] 01-23-2025 16:22-0500 Diastolic blood pressure 74 mm[Hg] Bia Cao MD Work Phone: [facility] 01-23-2025 16:22-0500 Heart rate 87 /min Bia Cao MD Work Phone: [facility] 01-23-2025 16:22-0500 Respiratory rate 18 /min Bia Cao MD Work Phone: [facility] 01-23-2025 16:22-0500 SaO2% (BldA) [Mass fraction] 96 % Bia Cao MD Work Phone: [facility] 01-23-2025 16:22-0500 Systolic blood pressure 122 mm[Hg] Bia Cao MD Work Phone: [facility] 01-15-2025 14:20-0500 Body height 160 cm Bia Cao MD Work Phone: [facility] 01-15-2025 14:20-0500 Body mass index (BMI) [Ratio] 26.04 kg/m2 Bia Cao MD Work Phone: [facility] 01-15-2025 14:20-0500 Body weight 66.68 kg Bia Cao MD Work Phone: [facility] 01-15-2025 14:20-0500 Diastolic blood pressure 66 mm[Hg] Bia Cao MD Work Phone: [facility] 01-15-2025 14:20-0500 Heart rate 86 /min Bia Cao MD Work Phone: [facility] 01-15-2025 14:20-0500 Respiratory rate 18 /min Bia Cao MD Work Phone: [facility] 01-15-2025 14:20-0500 SaO2% (BldA) [Mass fraction] 94 % Bia Cao MD Work Phone: [facility] 01-15-2025 14:20-0500 Systolic blood pressure 130 mm[Hg] Bia Cao MD Work Phone: [facility] 01-12-2025 12:54-0500 Body height 160 cm Pfo 1 [facility] 01-12-2025 12:54-0500 Body mass index (BMI) [Ratio] 26.22 kg/m2 Pfo 1 [facility] 01-12-2025 12:54-0500 Body temperature 98.6 [degF] Pfo 1 [facility] 01-12-2025 12:54-0500 Body weight 67.13 kg Pfo 1 [facility] 01-12-2025 12:54-0500 Diastolic blood pressure 54 mm[Hg] Pfo 1 [facility] 01-12-2025 12:54-0500 Heart rate 82 /min Pfo 1 [facility] 01-12-2025 12:54-0500 Respiratory rate 16 /min Pfo 1 [facility] 01-12-2025 12:54-0500 SaO2% (BldA) [Mass fraction] 96 % Pfo 1 [facility] 01-12-2025 12:54-0500 Systolic blood pressure 107 mm[Hg] Pfo 1 [facility] 01-11-2025 15:07-0500 Body height 160 cm Pfo 1 [facility] 01-11-2025 15:07-0500 Body mass index (BMI) [Ratio] 26.22 kg/m2 Pfo 1 [facility] 01-11-2025 15:07-0500 Body temperature 97.11 [degF] Pfo 1 [facility] 01-11-2025 15:07-0500 Body weight 67.13 kg Pfo 1 [facility] 01-11-2025 15:07-0500 Diastolic blood pressure 85 mm[Hg] Pfo 1 [facility] 01-11-2025 15:07-0500 Heart rate 83 /min Pfo 1 [facility] 01-11-2025 15:07-0500 Respiratory rate 16 /min Pfo 1 [facility] 01-11-2025 15:07-0500 SaO2% (BldA) [Mass fraction] 96 % Pfo 1 [facility] 01-11-2025 15:07-0500 Systolic blood pressure 140 mm[Hg] Pfo 1 [facility] 01-09-2025 13:53-0500 Body height 160 cm Katerin Alvarado MD Work Phone: [facility] 01-09-2025 13:53-0500 Body mass index (BMI) [Ratio] 26.57 kg/m2 Katerin Alvarado MD Work Phone: [facility] 01-09-2025 13:53-0500 Body weight 68.04 kg Katerin Alvarado MD Work Phone: [facility] 01-09-2025 13:53-0500 Diastolic blood pressure 62 mm[Hg] Katerin Alvarado MD Work Phone: [facility] 01-09-2025 13:53-0500 Heart rate 87 /min Katerin Alvarado MD Work Phone: [facility] 01-09-2025 13:53-0500 Systolic blood pressure 108 mm[Hg] Katerin Alvarado MD Work Phone: [facility] 12-26-2024 09:30-0500 Body height 160 cm Bia Cao MD Work Phone: [facility] 12-26-2024 09:30-0500 Body mass index (BMI) [Ratio] 26.57 kg/m2 Bia Cao MD Work Phone: [facility] 12-26-2024 09:30-0500 Body weight 68.04 kg Bia Cao MD Work Phone: [facility] 12-26-2024 09:30-0500 Diastolic blood pressure 74 mm[Hg] Bia Cao MD Work Phone: [facility] 12-26-2024 09:30-0500 Heart rate 85 /min Bia Cao MD Work Phone: [facility] 12-26-2024 09:30-0500 Respiratory rate 18 /min Bia Cao MD Work Phone: [facility] 12-26-2024 09:30-0500 SaO2% (BldA) [Mass fraction] 97 % Bia Cao MD Work Phone: [facility] 12-26-2024 09:30-0500 Systolic blood pressure 122 mm[Hg] Bia Cao MD Work Phone: [facility] 12-19-2024 13:03-0500 Body height 160 cm Maria C Kramer MD Work Phone: [facility] 12-19-2024 13:03-0500 Body mass index (BMI) [Ratio] 26.39 kg/m2 Maria C Kramer MD Work Phone: [facility] 12-19-2024 13:03-0500 Body weight 67.59 kg Maria C Kramer MD Work Phone: [facility] 12-19-2024 13:03-0500 Diastolic blood pressure 87 mm[Hg] Maria C Kramer MD Work Phone: [facility] 12-19-2024 13:03-0500 Heart rate 86 /min Maria C Kramer MD Work Phone: [facility] 12-19-2024 13:03-0500 Systolic blood pressure 162 mm[Hg] Maria C Kramer MD Work Phone: [facility] 12-08-2024 11:49-0500 Body height 160 cm Bia Cao MD Work Phone: [facility] 12-08-2024 11:49-0500 Body mass index (BMI) [Ratio] 26.18 kg/m2 Bia Cao MD Work Phone: [facility] 12-08-2024 11:49-0500 Body weight 67.04 kg Bia Cao MD Work Phone: [facility] 12-08-2024 11:49-0500 Diastolic blood pressure 76 mm[Hg] Bia Cao MD Work Phone: [facility] 12-08-2024 11:49-0500 Heart rate 79 /min Bia Cao MD Work Phone: [facility] 12-08-2024 11:49-0500 SaO2% (BldA) [Mass fraction] 93 % Bia Cao MD Work Phone: [facility] 12-08-2024 11:49-0500 Systolic blood pressure 128 mm[Hg] Bia Cao MD Work Phone: [facility] 12-06-2024 11:48-0500 Body mass index (BMI) [Ratio] 26.55 kg/m2 John Johnson MD Work Phone: [facility] 12-06-2024 11:48-0500 Body weight 67.99 kg John Johnson MD Work Phone: [facility] 12-06-2024 11:48-0500 Diastolic blood pressure 70 mm[Hg] John Johnson MD Work Phone: [facility] 12-06-2024 11:48-0500 Heart rate 87 /min John Johnson MD Work Phone: [facility] 12-06-2024 11:48-0500 Systolic blood pressure 117 mm[Hg] John Johnson MD Work Phone: [facility] 10-30-2024 13:39-0500 Body height 160 cm Santo ABREUM Work Phone: [facility] 10-30-2024 13:39-0500 Body mass index (BMI) [Ratio] 26.18 kg/m2 Santo Meghan DPM Work Phone: [facility] 10-30-2024 13:39-0500 Body weight 67.04 kg Santo Christianson DPM Work Phone: [facility] 09-26-2024 13:39-0500 Body mass index (BMI) [Ratio] 26.17 kg/m2 Rose Velasquez [employer] Work Phone: [place] 09-26-2024 13:39-0500 Body weight 67 kg Rose Velasquez [employer] Work Phone: [place] 09-26-2024 13:39-0500 Diastolic blood pressure 81 mm[Hg] Rose Velasquez [employer] Work Phone: [place] 09-26-2024 13:39-0500 Heart rate 91 /min Rose Velasquez [employer] Work Phone: [place] 09-26-2024 13:39-0500 SaO2% (BldA) [Mass fraction] 96 % Rose Velasquez [employer] Work Phone: [place] 09-26-2024 13:39-0500 Systolic blood pressure 143 mm[Hg] Rose Velasquez [employer] Work Phone: [place] 08-14-2024 15:57-0400 Body height 160 cm Bia Cao MD Work Phone: [facility] 08-14-2024 15:57-0400 Body mass index (BMI) [Ratio] 26.18 kg/m2 Bia Cao MD Work Phone: [facility] 08-14-2024 15:57-0400 Body weight 67.04 kg Bia Cao MD Work Phone: [facility] 08-14-2024 15:57-0400 Diastolic blood pressure 88 mm[Hg] Bia Cao MD Work Phone: [facility] 08-14-2024 15:57-0400 Heart rate 88 /min Bia Cao MD Work Phone: [facility] 08-14-2024 15:57-0400 SaO2% (BldA) [Mass fraction] 95 % Bia Cao MD Work Phone: [facility] 08-14-2024 15:57-0400 Systolic blood pressure 148 mm[Hg] Bia Cao MD Work Phone: [facility] 08-08-2024 11:40-0400 Body height 160 cm Bia Cao MD Work Phone: [facility] 08-08-2024 11:40-0400 Body mass index (BMI) [Ratio] 26.43 kg/m2 Bia Cao MD Work Phone: [facility] 08-08-2024 11:40-0400 Body weight 67.68 kg Bia Cao MD Work Phone: [facility] 08-08-2024 11:40-0400 Diastolic blood pressure 84 mm[Hg] Bia Cao MD Work Phone: [facility] 08-08-2024 11:40-0400 Heart rate 77 /min Bia Cao MD Work Phone: [facility] 08-08-2024 11:40-0400 Respiratory rate 20 /min Bia Cao MD Work Phone: [facility] 08-08-2024 11:40-0400 SaO2% (BldA) [Mass fraction] 97 % Bia Cao MD Work Phone: [facility] 08-08-2024 11:40-0400 Systolic blood pressure 136 mm[Hg] Bia Cao MD Work Phone: [facility] 07-10-2024 15:39-0400 Body height 160 cm Bia Cao MD Work Phone: [facility] 07-10-2024 15:39-0400 Body mass index (BMI) [Ratio] 27.1 kg/m2 Bia Cao MD Work Phone: [facility] 07-10-2024 15:39-0400 Body weight 69.4 kg Bia Cao MD Work Phone: [facility] 07-10-2024 15:39-0400 Diastolic blood pressure 72 mm[Hg] Bia Cao MD Work Phone: [facility] 07-10-2024 15:39-0400 Heart rate 90 /min Bia Cao MD Work Phone: [facility] 07-10-2024 15:39-0400 Respiratory rate 18 /min Bia Cao MD Work Phone: [facility] 07-10-2024 15:39-0400 SaO2% (BldA) [Mass fraction] 97 % Bia Cao MD Work Phone: [facility] 07-10-2024 15:39-0400 Systolic blood pressure 126 mm[Hg] Bia Cao MD Work Phone: [facility] 04-04-2024 11:29-0400 Body height 160 cm Mandi Hoover MD Work Phone: [place] 04-04-2024 11:29-0400 Body mass index (BMI) [Ratio] 27.18 kg/m2 Mandi Hoover MD Work Phone: [place] 04-04-2024 11:29-0400 Body temperature 97.7 [degF] Mandi Hoover MD Work Phone: [place] 04-04-2024 11:29-0400 Body weight 69.6 kg Mandi Hoover MD Work Phone: [place] 04-04-2024 11:29-0400 Diastolic blood pressure 65 mm[Hg] Mandi Hoover MD Work Phone: [place] 04-04-2024 11:29-0400 Heart rate 80 /min Mandi Hoover MD Work Phone: [place] 04-04-2024 11:29-0400 Respiratory rate 18 /min Mandi Hoover MD Work Phone: [place] 04-04-2024 11:29-0400 SaO2% (BldA) [Mass fraction] 96 % Mandi Hoover MD Work Phone: [place] 04-04-2024 11:29-0400 Systolic blood pressure 105 mm[Hg] Mandi Hoover MD Work Phone: [place] Encounters Encounter Date Encounter Type Care Provider Facility Start: 07-25-2025 End: 07-25-2025 Refill Bia Cao MD Work Phone: [facility] Comment on above: Gastroesophageal ref lux disease without esophagitis Start: 07-20-2025 End: 07-20-2025 ambulatory Pfo Infusion Chair 1 Meggan Harrison [facility] Comment on above: Osteoporosis, unspec ified osteoporosis type, unspecified pathological fracture presence (Primary Dx) Start: 07-16-2025 ambulatory [facility] Anny CAO [facility] Start: 07-10-2025 End: 07-10-2025 Bamboo flowsheet Bia Cao MD Work Phone: [facility] Start: 07-10-2025 End: 07-10-2025 Bamboo flowsmelissa Cao MD Work Phone: [facility] Start: 07-10-2025 End: 07-10-2025 Office outpatient visit 25 minutes Bia Cao MD Work Phone: [facility] Comment on above: Stage 3b chronic kid juwan disease (CKD) ([facility]-HCC); Major depressive disorder, single episode, in full remission ; Age-related osteoporosis without current pathological fracture ; Moderate persistent asthma without complication (HCC); Diastolic dysfunction with chronic heart failure (HCC); Chronic idiopathic constipation; Mild intermittent asthma without complication (HCC); Interstitial pulmonary disease, unspecified (HCC) Start: 07-10-2025 End: 07-10-2025 ambulatory BIA CAO Not Available Start: 07-02-2025 End: 07-02-2025 ambulatory Adelfo Hansen MD Facility:[facility] Start: 06-26-2025 End: 06-26-2025 ambulatory BIA CAO Not Available Start: 06-26-2025 End: 06-26-2025 Telephone encounter Bia Cao MD Work Phone: [facility] Start: 06-19-2025 End: 06-19-2025 Refill Tae Hardy NP Work Phone: [facility] Comment on above: Primary insomnia; Major depressive disorder, single episode, in full remission Start: 06-13-2025 End: 06-13-2025 Office outpatient visit 15 minutes Randall WILKINSON Work Phone: [facility] Comment on above: Kidney stones (Prima ry Dx); Urge incontinence Start: 06-13-2025 End: 06-13-2025 ambulatory RANDALL JAUREGUI [facility] Start: 06-13-2025 End: 06-13-2025 ambulatory Pfo Infusion Chair 1 Meggan Harrison [facility] - [facility] Comment on above: Osteoporosis, unspec ified osteoporosis type, unspecified pathological fracture presence (Primary Dx) Start: 06-12-2025 ambulatory [facility] Start: 05-16-2025 End: 05-16-2025 ambulatory Pfo Infusion Chair 1 Meggan Harrison [facility] Comment on above: Osteoporosis, unspec ified osteoporosis type, unspecified pathological fracture presence (Primary Dx) Start: 05-15-2025 ambulatory [facility] Start: 05-14-2025 End: 05-14-2025 ambulatory Adelfo Hansen MD Facility:[facility] Start: 05-08-2025 End: 05-08-2025 Telephone encounter Katerin Alvarado MD Work Phone: [facility] Comment on above: outgoing referral Start: 04-23-2025 End: 04-23-2025 ambulatory Adelfo Hansen MD Facility:[facility] Start: 04-18-2025 End: 04-18-2025 Office outpatient visit 25 minutes John Johnson MD Work Phone: [facility] Department of [facility] Comment on above: Osteoporosis, unspec ified osteoporosis type, unspecified pathological fracture presence (Primary Dx); Hypothyroidism, unspecified type; Age-related osteoporosis without current pathological fracture; Vitamin D deficiency Start: 04-18-2025 ambulatory JOHN GUNDATIMOTHY [facility] Start: 04-18-2025 End: 04-18-2025 ambulatory Pfo Infusion Chair 1 Meggan Harrison [facility] - [facility] Comment on above: Osteoporosis, unspec ified osteoporosis type, unspecified pathological fracture presence (Primary Dx) Start: 04-13-2025 [facility] Start: 04-09-2025 End: 04-09-2025 Bambo flowsheet Bia Cao MD Work Phone: [facility] Start: 04-09-2025 End: 04-09-2025 [facility] flowsheet Bia Cao MD Work Phone: [facility] [...] ambulatory Pfo Infusion Chair 1 Meggan Harrison [facility] Comment on above: Osteoporosis, unspec ified osteoporosis type, unspecified pathological fracture presence (Primary Dx) Start: 03-19-2025 End: 03-19-2025 ambulatory [facility] Start: 02-27-2025 End: 02-27-2025 Office outpatient visit 15 minutes Randall WILKINSON Work Phone: [facility] Comment on above: Urge incontinence (P rimary Dx); Frequent UTI Start: 02-27-2025 End: 02-27-2025 ambulatory RANDALL JAUREGUI [facility] Start: 02-19-2025 End: 02-19-2025 Orders Only Yoanna Dorsey [employer] Work Phone: [facility] Comment on above: Migraine without aur a and without status migrainosus, not intractable (Primary Dx); Essential tremor; Cervical radiculopathy; Bilateral occipital neuralgia Essential hypertensi on (CMS/HCC) (Primary Dx) Start: 02-16-2025 End: 02-16-2025 ambulatory Pfo Infusion Chair 1 Meggan Harrison [facility] Comment on above: Osteoporosis, unspec ified osteoporosis type, unspecified pathological fracture presence (Primary Dx) Start: 02-14-2025 End: 02-14-2025 ambulatory BIA CAO [facility] Start: 02-13-2025 End: 02-13-2025 ambulatory BIA CAO Not Available Start: 02-12-2025 End: 02-12-2025 Telephone encounter Bia Cao MD Work Phone: [facility] Start: 02-12-2025 End: 02-12-2025 ambulatory [facility] Start: 02-12-2025 End: 02-12-2025 Office outpatient visit 15 minutes Yoanna Willian [employer] Work Phone: [facility] Comment on above: Migraine without aur a and without status migrainosus, not intractable (Primary Dx); Essential tremor; Psychophysiological insomnia Start: 02-09-2025 End: 02-09-2025 Telephone encounter Blanche Harrison [facility] Start: 02-08-2025 End: 03-20-2025 Orders Only Gladys Zambrano LPN [facility] Comment on above: Osteoporosis, unspec ified osteoporosis [...] [facility] Start: 01-22-2025 ambulatory BIA CAO [facility] Start: 01-15-2025 End: 01-15-2025 Office [...] 01-12-2025 ambulatory Pfo Infusion Chair 1 Meggan [facility] Comment on above: Osteoporosis, unspec ified osteoporosis type, unspecified pathological fracture presence (Primary Dx) Start: 01-12-2025 End: 01-12-2025 ambulatory [facility] Anny [facility] Start: 01-11-2025 End: 01-11-2025 ambulatory Pfo Infusion Chair 1 Meggan Harrison [facility] Start: 01-09-2025 End: [...] with hematuria (Primary Dx) Start: 12-29-2024 ambulatory [facility] Anny [facility] Start: 12-26-2024 End: 12-26-2024 Bamboo flowsmelissa Cao [...] depressive disorder, single episode, in full remission ([facility]); Fall, subsequent encounter; Gastroesophageal reflux disease without esophagitis Start: 12-25-2024 End: 12-25-2024 Telephone encounter Bia Cao MD Work Phone: [facility] Start: 12-23-2024 End: 12-23-2024 Emergency department patient visit BIA CAO [facility] Start: 12-22-2024 End: 12-22-2024 Orders Only John Johnson MD Work Phone: [facility] Comment on above: Osteoporosis, unspec ified osteoporosis type, unspecified pathological fracture presence (Primary Dx) Start: 12-19-2024 End: 12-19-2024 Office outpatient visit 15 minutes Maria C Kramer MD Work Phone: [facility] Comment on above: Urge incontinence (P rimary Dx) Start: 12-19-2024 End: 12-19-2024 ambulatory MARIA C KRAMER [facility] Start: 12-18-2024 End: 12-18-2024 ambulatory Adelfo Hansen MD Facility:[facility] Start: 12-12-2024 End: 12-12-2024 Refill Bia [...] 25 minutes John Johnson MD Work Phone: [facility] Comment on above: Hypothyroidism, unsp ecified type (Primary Dx); Age-related osteoporosis without current pathological fracture; Vitamin D deficiency Start: 12-06-2024 End: 12-06-2024 Orders Only Gladys Zambrano [employer]IST [facility] Comment on above: Osteoporosis, unspec ified osteoporosis type, unspecified pathological fracture presence (Primary Dx) Start: 11-29-2024 End: 11-29-2024 Refill Bia Cao MD Work Phone: [facility] Comment on above: Anemia, unspecified type (Primary Dx) Start: 11-28-2024 End: 11-28-2024 ambulatory [facility] Start: 11-20-2024 End: 11-20-2024 [facility] Start: 11-06-2024 End: 11-06-2024 Refill Bia Cao MD Work Phone: [facility] Comment on above: Hyperlipidemia, unsp ecified hyperlipidemia type (CMS/HCC) Start: 10-30-2024 End: 10-30-2024 Bamboo flowsheet Santo Christianson DPM Work Phone: [facility] Start: 10-30-2024 End: 10-30-2024 Bamboo flowsheet Santo Christianson DPM Work Phone: [facility] Start: 10-30-2024 End: 10-30-2024 Patient encounter procedure Santo Christianson DPM Work Phone: [facility] Comment on above: Dermatophytosis of n ail (Primary Dx); Dystrophic nail; Pain around toenail, right foot; Pain around toenail, left foot Start: 10-30-2024 End: 10-30-2024 ambulatory SANTO CHRISTIANSON Not Available Start: 10-04-2024 End: 10-06-2024 Telephone encounter Rose Velasquez [employer] Work Phone: [facility] Comment on above: Patient Question Start: 09-26-2024 End: 09-26-2024 ambulatory ROSE VELASQUEZ Facility:[facility] Start: 09-26-2024 End: 09-26-2024 Patient encounter procedure Rose Velasquez [employer] Work Phone: Neurosurgery Comment on above: 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); Dizziness Start: 09-26-2024 End: 09-26-2024 ambulatory MANDI F HOOVER Facility:[facility] Start: 09-26-2024 End: 09-26-2024 Subsequent hospital visit by physician Mri [facility] (Lg Bore/1.5t) Radiology MRI Comment on above: 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] Start: 09-04-2024 End: 09-04-2024 ambulatory Adelfo Hansen MD Facility: [facility] Start: 08-29-2024 End: 08-29-2024 ambulatory MARIA C [facility] Start: 08-21-2024 End: 08-21-2024 ambulatory Adelfo Hansen MD Facility: [facility] Start: 08-14-2024 End: 08-14-2024 Office outpatient visit 15 minutes iBa Cao MD Work Phone: [facility] Comment [...] 07-17-2024 End: 07-17-2024 ambulatory Adelfo Hansen MD Facility:[facility] Start: 07-14-2024 End: 07-14-2024 Orders Only Bia Cao MD Work Phone: [facility] Comment on above: Acute cystitis witho ut hematuria (Primary Dx) Start: 07-13-2024 End: 07-13-2024 ambulatory [facility] Start: 07-11-2024 End: 07-11-2024 Orders [...] Orders Only Mandi gambino MD Work Phone: [facility] Comment on above: Intracranial meningi brandon (HCC) (Primary Dx); Benign neoplasm of meninges (HCC) Start: 04-04-2024 End: 04-04-2024 ambulatory MANDI HOOVER Facility:[facility] Start: 04-04-2024 End: 04-04-2024 Patient encounter procedure Mandi Hoover MD Work Phone: [facility] Comment on above: Intracranial meningi bradnon (HCC) (Primary Dx); Sensorineural hearing loss (SNHL) of right ear, unspecified hearing status on contralateral side; Dizziness Start: 03-24-2024 Telephone encounter Neurology Provid er Neurology Comment on above: Received Outside [facility] Records (External referral to Neurological Marshall/); triage; Nurse Triage Call; Appointment Start: 01-06-2024 End: 01-06-2024 ambulatory Ria Snyder COAL TRIMMER MACHINE OPERATOR Work Phone: [facility] Comment on above: General weakness (Pr imary Dx); History of falling Start: 01-04-2024 Bamboo flowsheet Ria Wrig ht COAL TRIMMER MACHINE OPERATOR Work Phone: [facility] Start: 01-04-2024 Bamboo flowsheet Ria Wrig ht COAL TRIMMER MACHINE OPERATOR Work Phone: [facility] Start: 01-04-2024 End: 01-04-2024 ambulatory Ria Snyder COAL TRIMMER MACHINE OPERATOR Work Phone: [facility] Comment on above: General weakness (Pr imary Dx); History of falling Start: 01-03-2024 Refill Bia Gaxiola Work Phone: [facility] Comment on above: Mixed hyperlipidemia (CMS/HCC) (Primary Dx); Stress incontinence of urine Start: 12-30-2023 Chart abstracting Jonny Freitas gs PT Work Phone: [facility] Start: 12-23-2023 End: 12-23-2023 ambulatory Ria Snyder COAL TRIMMER MACHINE OPERATOR Work Phone: [facility] Comment on above: General weakness (Pr imary Dx); History of falling Start: 10-12-2022 End: 10-12-2022 ambulatory [facility] Start: 09-28-2022 End: 09-28-2022 ambulatory [facility] Start: 05-16-2018 End: 05-16-2018 Ambulatory AUDREY Guillermo [facility] Start: 05-06-2018 End: 05-11-2018 Ambulatory LENNY BRIGITTETANISHA [facility] Start: 05-02-2018 Patient encounter status Antonietta Johnson MD Work Phone: [employer] Work Phone: Procedures Date Procedure Procedure Detail Performing Clinician Start: 06-13-2025 Follow-up visit Follow-up YOVANI JAUREGUI Start: 02-27-2025 Urnls dip stick/tabl et rgnt auto w/o microscopy Randall WILKINSON Work Phone: Start: 02-12-2025 Adult depression scr eening assessment Yoanna Willian [employer] SALESMAN AND DRIVER Work Phone: Start: 01-23-2025 Urnls dip stick/tabl et rgnt non-auto w/o micrscp Bia Cao MD Work Phone: Start: 01-15-2025 STATUS COVID-19/FLU Elizabeth Cao MD Work Phone: Start: 01-01-2025 Urnls dip stick/tabl et rgnt non-auto w/o micrscp Tae Hardy FLATBED OWNER OPERATOR Work Phone: Start: 12-08-2024 Culture bacterial quanttative [...] Author Start: 02-10-2027 Diabetes Screening Diabetes Screenin [facility] Start: 06-13-2026 Tobacco Screening Tobacco Screening [facility] Start: 05-16-2026 Tobacco Screening Tobacco Screening [facility] Start: 04-18-2026 Tobacco Screening [facility] Screening [facility] Start: 02-27-2026 Tobacco Screening Tobacco Screening [facility] Start: 02-26-2026 End: 02-26-2026 Patient encounter procedure 02/26/2026 1:00 PM EDT Office Visit [facility] [address] [place] [address] [place] [address] [address] Maria C Kramer MD [facility] [facility] [place] [address] [facility] Start: 02-16-2026 Tobacco Screening Tobacco Screening [facility] Start: 02-12-2026 Depression Screening Depression Scre ening [facility] Start: 02-12-2026 Fall Risk Screening Fall Risk Screen ing [facility] Start: 02-12-2026 Tobacco Screening Tobacco Screening [facility] Start: 01-14-2026 End: 06-13-2026 XR Abdomen AP X-ray abdomen ap 1 view Imaging Routine Kidney stones Expected: 01/14/2026, Expires: 06/13/2026 [facility] Work Phone: Comment on above: Expected: 01/14/2026 , Expires: 06/13/2026 Start: 01-11-2026 Tobacco Screening Tobacco Screening [facility] Start: 12-19-2025 Tobacco Screening Tobacco Screening [facility] Start: 12-06-2025 Tobacco Screening Tobacco Screening [facility] Start: 11-07-2025 End: 11-07-2025 Patient encounter procedure 11/07/2025 1:40 PM EST Office Visit [facility] [facility] [place] [phone] Bia Cao MD [address] [facility] [address] [place], [place] [phone] [facility] Start: 08-17-2025 End: 08-17-2025 ambulatory 08/17/2025 1:00 PM EDT Infusion Meggan Harrison [facility] [address] [place] [address] Meggan Harrison [facility] Start: 08-16-2025 End: 08-16-2025 Patient encounter procedure [facility], A Department of [facility] Start: 07-23-2025 Influenza vaccination P [facility] Start: 07-13-2025 Depression Screening Depression Scre [facility] Start: 07-11-2025 End: 07-11-2025 ambulatory 07/11/2025 12:00 PM EDT Infusion Meggan Harrison [facility] [address] [place] [address] Meggan Harrison [facility] Start: 07-10-2025 End: 07-10-2026 25-hydroxyvitamin D3 [Mass/volume] in Serum or Plasma Vitamin D 25 hydroxy Lab Routine Age-related osteoporosis without current pathological fracture Expected: 07/10/2025 (Approximate), Expires: 07/10/2026 [facility] Comment on above: Expected: 07/10/2025 (Approximate), Expires: 07/10/2026 Start: 07-10-2025 End: 07-10-2026 CBC W Auto Differential panel - Blood CBC and differential Lab Routine Stage 3b chronic kidney [facility]) [facility] Major depressive disorder, single episode, in full remission Expected: 07/10/2025 (Approximate), Expires: 07/10/2026 [facility] Work Phone: Comment on above: Expected: 07/10/2025 (Approximate), Expires: 07/10/2026 Start: 07-10-2025 End: 07-10-2026 Comprehensive metabolic 2000 panel - Serum or Plasma Comprehensive metabolic panel Lab Routine Stage 3b chronic kidney disease (CKD) ([facility]) Expected: 07/10/2025, Expires: 07/10/2026 [facility] Comment on above: Expected: 07/10/2025 , Expires: 07/10/2026 Start: 07-10-2025 End: 07-10-2025 Patient encounter procedure [facility] Comment on above: Arrived Start: 06-13-2025 End: 06-13-2025 Patient encounter procedure 06/13/2025 2:00 PM EDT Office Visit [facility] [address] [place] [address] [address] [facility] [place] [phone] Randall Jauregui I, PA [address] [place] [address] [facility] Start: 06-13-2025 End: 06-13-2025 ambulatory 06/13/2025 12:30 PM EDT Infusion Meggan Dale [facility] [address] [place] [phone] Meggan Hunter [facility] Start: 05-21-2025 Influenza vaccination Influenza Vacc ine (#1) [facility] Comment on above: Postponed from 07/23 (Other Medical Reasons) Start: 05-16-2025 End: 05-16-2025 ambulatory 05/16/2025 10:30 AM EDT Infusion Meggan Hunter [facility] [address] [place] [phone] Meggan L [facility] Start: 04-26-2025 COVID-19 Vaccine ( season) COVID-19 Vaccine () [facility] Start: 04-18-2025 End: 04-18-2026 DXA Skeletal system Views for bone density Dexa scan central skeletal Imaging Routine Osteoporosis, unspecified osteoporosis type, unspecified pathological fracture presence Expected: 04/18/2025, Expires: 04/18/2026 [facility] Comment on above: Expected: 04/18/2025 , Expires: 04/18/2026 Start: 04-18-2025 End: 04-18-2025 Patient encounter procedure 04/18/2025 1:30 PM EDT Office Visit [facility], A Department of [facility] [address] [place] [address] John Johnson MD [address] [facility] [place] [address] [facility], A Department of [facility] Start: 04-18-2025 End: 04-18-2025 ambulatory 04/18/2025 10:30 AM EDT Infusion Meggan L Hunter [facility] [address] [place] [phone] Meggan Dale Hunter [facility] Start: 04-09-2025 End: 04-09-2025 Patient encounter procedure [facility] Comment on above: Arrived Start: 04-09-2025 End: 04-09-2025 ambulatory 04/09/2025 1:00 PM EDT Infusion Meggan Dale Hunter [facility] [address] [place] [phone] Meggan L Hunter [facility] Medical Oncology Start: 04-06-2025 End: 04-06-2025 Patient encounter procedure 04/06/2025 10:30 AM EDT Office Visit [facility] [address] [place] [address] [place] [address] Corey Corbett, [address] [facility], [address], [place] [address] [facility] Start: 03-12-2025 End: 03-12-2025 ambulatory 03/12/2025 1:30 PM EDT Infusion Meggan Dale Hunter [facility] [place] [phone] Meggan Hunter [facility] Start: 03-10-2025 Fall Risk Screening Fall Risk Screen [facility] Start: 03-09-2025 End: 03-09-2025 ambulatory 03/09/2025 1:00 PM EDT Infusion [facility] [address] [place] [phone] Meggan L [facility] Start: 02-27-2025 End: 02-27-2025 Patient encounter procedure 02/27/2025 2:30 PM EDT Office Visit [facility] [address] [place] [phone] Randall Jauregui PA [address] [place] [address] [facility] Start: 02-16-2025 End: 02-16-2025 ambulatory 02/16/2025 1:00 PM EDT Infusion Megganalok Harrison [facility] [address] [place] [phone] Megganalok Joeln [facility] Start: 02-13-2025 End: 02-13-2025 Professional / ancillary services management 02/13/2025 2:00 PM EDT Ancillary Procedure [facility] [address] [phone] Start: 02-12-2025 End: 02-12-2025 Patient encounter procedure [facility] Department of [facility] Start: 02-09-2025 End: 02-09-2025 ambulatory 02/09/2025 2:00 PM EDT Infusion Megganalok Harrison [facility] [address] [place] [phone] Megganalok Harrison [facility] Start: 02-08-2025 End: 02-08-2025 ambulatory 02/08/2025 2:00 PM EDT Infusion Megganalok Harrison [facility] [address] [place] [phone] Megganalok Joeln [facility] Start: 02-06-2025 End: 02-06-2025 Patient encounter procedure 02/06/2025 9:20 AM EDT Office Visit [facility] [address] [place] [phone] Bia Cao MD [address] [facility], [place] [phone] [facility] Start: 01-23-2025 End: 01-23-2026 [...] Neurology [address] [place] [place] [address] Yoanna Dorsey, S[employer]AP [employer] SALESMAN AND DRIVER [address] [place] [place] [address] [facility] Start: 01-17-2025 End: 01-17-2025 Patient encounter procedure [facility] Start: 01-15-2025 End: 01-15-2025 Patient encounter procedure 01/15/2025 2:20 PM EST Office Visit [facility] [address] [facility] [place] [phone] Bia Cao MD [address] [place] [address] Arrived [facility] Comment on above: Arrived Start: 01-12-2025 End: 01-12-2025 ambulatory 01/12/2025 2:20 PM EST Infusion Meggan Harrison [facility] [address] [place] [phone] Meggan Harrison [facility] Start: 01-09-2025 End: 01-09-2025 Patient encounter procedure 01/09/2025 1:40 PM EST Office Visit [facility] [address] [facility] [address] [place] [phone] Katerin Alvarado MD [address] [facility] 130 [place] [address] [facility] Start: 01-01-2025 End: 01-01-2026 Bacteria identified in Urine by Culture Urine culture (clean catch) Microbiology Routine Hematuria, unspecified type Expected: 01/01/2025 (Approximate), Expires: 01/01/2026 [facility] Work Phone: Comment on above: Expected: 01/01/2025 (Approximate), Expires: 01/01/2026 Start: 01-01-2025 End: 01-01-2025 Patient encounter procedure 01/01/2025 1:30 PM EST Office Visit [facility] [address] [place] [phone] [facility] Start: 12-26-2024 End: 12-26-2024 Patient encounter procedure 12/26/2024 9:20 AM EST Office Visit [facility] [address] [place] [phone] Bia Cao MD [address] [place], [place] [phone] [facility] Start: 12-19-2024 End: 12-19-2024 Patient encounter procedure 12/19/2024 12:45 PM EST Office Visit [facility] [address] [facility] A [facility] [place] [address] Maria C Kramer MD [facility] [place] [facility] [place] [address] [facility] Start: 12-08-2024 End: 12-08-2024 Patient encounter procedure 12/08/2024 11:40 AM EST Office Visit [facility] [address] [place] [phone] Bia Cao MD [address] [place] [address] [facility] Start: 12-06-2024 Medicare Annual Well ness (AWV) Medicare Annual Wellness (AWV) [facility] Start: 10-30-2024 End: 10-30-2024 Patient encounter procedure 10/30/2024 1:45 PM EST Office Visit [facility] [address] [place] [phone] Sanot Christianson DPAdali [address] [place], [place] [phone] Arrived [facility] Comment on above: Arrived Start: 08-28-2024 End: 06-08-2025 MR Brain WO and W contrast IV MRI BRAIN WO/W IVCON Radiology Routine Benign neoplasm of meninges (HCC) Expected: 08/28/2024 (Approximate), Expires: 06/08/2025 [facility] Work Phone: Comment on above: Expected: 08/28/2024 (Approximate), Expires: 06/08/2025 Start: 08-14-2024 End: 08-14-2024 Patient encounter procedure 08/14/2024 4:00 PM EDT Office Visit [facility] [address] [facility] [place] [phone] Bia Cao MD [address] [place], [place] [phone] Arrived [facility] Comment on above: Arrived Start: 08-08-2024 End: 08-08-2024 Patient encounter procedure 08/08/2024 11:40 AM EDT Office Visit [facility] [address] [place] [phone] Bia Cao MD [address] [facility] [address] Arrived [facility] Comment on above: Arrived Start: 08-04-2024 End: 08-04-2024 Patient encounter procedure 08/04/2024 11:00 AM EDT Office Visit [facility] [address] [place] [phone] Bia Cao MD [address] [facility] [address] [facility] Start: 07-23-2024 Covid-19 Vaccine ( season) Covid-19 Vaccine ( season) [place] Start: 07-23-2024 Influenza vaccination [facility] Start: 07-10-2024 End: 07-10-2024 Patient encounter procedure 07/10/2024 3:40 PM EDT Office Visit [facility] [address] [facility] [phone] Bia Cao MD [address] [place] [address] Arrived [facility] Comment on above: Arrived Start: 07-10-2024 End: 07-10-2025 Bacteria identified in Urine by Culture Urine culture (clean catch) Microbiology Routine Dysuria Expected: 07/10/2024 (Approximate), Expires: 07/10/2025 [facility] Work Phone: Comment on above: Expected: 07/10/2024 (Approximate), Expires: 07/10/2025 Start: 07-10-2024 End: 07-10-2025 Urinalysis complete panel - Urine Urinalysis with reflex microscopic (clean catch) Lab Routine Dysuria Expected: 07/10/2024 (Approximate), Expires: 07/10/2025 [facility] Comment on above: Expected: 07/10/2024 (Approximate), Expires: 07/10/2025 Start: 05-21-2024 Influenza vaccination Influenza Vacc ine (#1) [facility] Comment on above: Postponed from 07/23 (Patient Refused) Start: 04-04-2024 End: 04-04-2024 Patient encounter procedure 04/04/2024 10:30 AM EDT Office Visit [facility] [address] [place] [address] Mandi Hoover MD [address] [place] [address] Time Frame: First available [facility] Comment on above: Time Frame: First av ailable Start: 04-03-2024 End: 04-03-2024 Patient encounter procedure 04/03/2024 11:20 AM EDT Office Visit [facility] [address] [facility] [place] [address] Bia Cao MD [address] [facility] [place] [address] [facility] Start: 01-20-2024 End: 01-20-2024 ambulatory 01/20/2024 11:00 AM EST Treatment [facility] [address] [place] [phone] Jonny Salazar, PT [address] [place] [address] [facility] Start: 01-18-2024 End: 01-18-2024 ambulatory 01/18/2024 11:30 AM EST Treatment [facility] [address] [place] [phone] Ria Snyder, COAL TRIMMER MACHINE OPERATOR [address] [place] [address] [facility] Start: 01-14-2024 End: 01-14-2024 ambulatory 01/14/2024 1:00 PM EST Treatment [facility] [address] [place] [phone] Ria Snyder, COAL TRIMMER MACHINE OPERATOR [address] [place] [address] [facility] Start: 01-12-2024 End: 01-12-2024 ambulatory 01/12/2024 12:30 PM EST Treatment [facility] [address] [place] [phone] Ria Snyder, COAL TRIMMER MACHINE OPERATOR [address] [place] [address] [facility] Start: 01-06-2024 End: 01-06-2024 ambulatory [facility] Start: 01-04-2024 End: 01-04-2024 ambulatory 01/04/2024 11:30 AM EST Treatment [facility] [address] [place] [phone] Ria Snyder, COAL TRIMMER MACHINE OPERATOR [address] [place] [address] [facility] Start: 12-31-2023 End: 12-31-2023 ambulatory 12/31/2023 10:00 AM EST Treatment [facility] [address] [place] [phone] Ria Snyder, COAL TRIMMER MACHINE OPERATOR [address] [place] [address] [facility] Start: 12-30-2023 End: 12-30-2023 ambulatory 12/30/2023 11:30 AM EST Treatment [facility] [address] [place] [phone] Jonny Salazar, PT [address] [place] [address] [facility] Start: 12-28-2023 End: 12-28-2023 ambulatory 12/28/2023 11:30 AM EST Treatment [facility] [address] [place] [phone] Ria Snyder, COAL TRIMMER MACHINE OPERATOR [address] [place] [address] [facility] Start: 11-22-2023 Advance Directive Discussion Advance Directive Discussion [place] Start: 11-22-2023 Behavioral Health Screening Behavioral Health Screening [place] Start: 07-23-2023 Covid-19 Vaccine ( season) Covid-19 Vaccine ( season) [place] Start: 08-21-2021 DTaP,Tdap and Td Vaccines (2 - Td or Tdap) DTaP,Tdap and Td Vaccines (2 - Td or Tdap) [facility] Start: 2020 RSV Vaccine (1 - 1-d ose 75+ series) RSV Vaccine (1 - 1-dose 75+ series) [place] Start: 08-22-2011 Urine microalbumin profile DTaP,Tdap,Td Vaccine (1 - Tdap) [place] Start: 01-17-2010 Administration of varicella zoster vaccine Zoster (Shingles) Vaccine (2 of 3) [facility] Start: 2005 RSV Vaccine (1 - 1-d ose 60+ series) RSV Vaccine (1 - 1-dose 60+ series) [place] Start: 1995 Shingrix Vaccine (1 of 2) Shingrix Vaccine (1 of 2) [place] Start: 1963 Anxiety Screening Anxiety Screening [place] Start: 1963 Depression Screening Depression Scre ening [place] Start: 1963 Hepatitis C screening Hepatitis C [facility] Bacteria identified in Urine by [...] (HCC) 1 Occurrences starting 09/26/2024 until 10/26/2025 [facility] Work Phone: Comment on above: 1 Occurrences starti ng 09/26/2024 until 10/26/2025 Immunizations Immunization Date Immunization Notes Care Provider Frank seymour 10-26-2024 RSV, recombinant, protein subunit RSVpreF, adjuvant reconstitu, 120mcg/0.5mL, PF (Arexvy) Santo Christianson DPM Work Phone: [facility] 03-12-2021 COVID-19, mRNA, LNP- S, PF, 100mcg/0.5mL Dose John Johnson MD Work Phone: [facility] 03-11-2021 Moderna SARS-CoV-2 Vaccination Ria Snyder COAL TRIMMER MACHINE OPERATOR Work Phone: [facility] 02-12-2021 COVID-19, mRNA, LNP- S, PF, 100mcg/0.5mL Dose John Johnson MD Work Phone: [facility] 02-11-2021 Moderna SARS-CoV-2 Vaccination Ria Snyder COAL TRIMMER MACHINE OPERATOR Work Phone: [facility] 11-12-2020 pneumococcal conjuga te vaccine, 13 valent Ria Snyder COAL TRIMMER MACHINE OPERATOR Work Phone: [facility] 09-17-2020 influenza, high dose seasonal, preservative-free Ria Snyder COAL TRIMMER MACHINE OPERATOR Work Phone: [facility] 09-17-2020 Seasonal, quadrivale nt, recombinant, injectable influenza vaccine, preservative free John Johnson MD Work Phone: [facility] 09-17-2020 influenza virus vacc ine, unspecified formulation Ria Snyder COAL TRIMMER MACHINE OPERATOR Work Phone: [facility] 08-30-2019 Seasonal, quadrivale nt, recombinant, injectable influenza vaccine, preservative free Riarandell Snyder COAL TRIMMER MACHINE OPERATOR Work Phone: [facility] 08-29-2018 influenza, injectabl e, quadrivalent, preservative free Ria Snyder COAL TRIMMER MACHINE OPERATOR Work Phone: [facility] 08-22-2015 influenza, seasonal, injectable, preservative free Ria Snyder COAL TRIMMER MACHINE OPERATOR Work Phone: [facility] 08-13-2015 pneumococcal polysaccharide vaccine, 23 valent Riarandell Snyder COAL TRIMMER MACHINE OPERATOR Work Phone: [facility] 08-21-2011 tetanus and diphther ia toxoids, adsorbed, preservative free, for adult use (5 Lf of tetanus toxoid and 2 Lf of diphtheria toxoid) Ria Snyder COAL TRIMMER MACHINE OPERATOR Work Phone: [facility] 11-22-2009 zoster vaccine, live Greeulae n Snyder COAL TRIMMER MACHINE OPERATOR Work Phone: [facility] 11-22-2009 zoster vaccine, unspecified formulation John Johnson MD Work Phone: [facility] 08-31-2003 pneumococcal polysaccharide vaccine, 23 valent Bia Cao MD Work Phone: [facility] Payers Date Payer Category Payer Medicaid [employer] MED[employer]ARE A DVANTAGE [id number] 2023 Medicare [id number]. [id number] 2022 Private Health Insurance 2021 Medicare O [employer] MEDICARE [id number]. [id number] 2021 Medicare [id number] 2014 Medicare [id number] 1945 Unknown [id number] 2..840.1.039389.3.579.2. 175 1945 Unknown [id number] 2.0.1.547333.3.579.2. 175 1945 Unknown [id number] 2..840.1.286454.3.579.2. 1285 1945 Unknown [id number] 2.16.840.1.139196.3.579.2. 1285 1945 Unknown [id number] 2.16.840.1.326774.3.579.2. 1285 1945 Unknown [id number] 2.840.1.723716.3.579.2. 1286 1945 Unknown [id number] 2.840.1.069429.3.579.2. 128 1945 Unknown [id number] 2.840.1.201259.3.579.2. 128 1945 Unknown [id number] 2.840.1.987971.3.579.2. 128 1945 Unknown [id number] 2.840.1.180216.3.579.2. 128 1945 Unknown [id number] 2.840.1.674951.3.579.2. 1258 1945 Unknown [id number] .0.1.631449.3.579.2. 1258 1945 Unknown [id number] 2.840.1.064415.3.579.2. 1258 1945 Unknown [id number] .840.1.139404.3.579.2. 1258 1945 Unknown [id number] .840.1.399237.3.579.2. 9 1945 Unknown [id number] .0.1.744119.3.579.2. 1258 1945 Unknown [id number] .840.1.871987.3.579.2. 1259 1945 Unknown [id number] .840.1.754863.3.579.2. 9 1945 Unknown [id number] 2.840.1.212930.3.579.2. 9 1945 Unknown [id number] .840.1.245007.3.579.2. 1258 1945 Unknown [id number] 2.16.840.1.192798.3.579.2. 1259 -194 Unknown [id number] 2.16.840.1.742475.3.579.2. 9 1945 Unknown [id number] 2.16.840.1.762939.3.579.2. 9 1945 Unknown [id number] 2.16.840.1.765218.3.579.2. 1259 1945 Unknown [id number] 2.16.840.1.556253.3.579.2. 196 1945 Unknown [id number] 2.16.840.1.685910.3.579.2. 1945 Unknown [id number] 2.16.840.1.699897.3.579.2. 1945 Unknown [id number] 2.840.1.026650.3.579.2. 1945 Unknown [id number] 2.16840.1.775284.3.579.2. 1945 Unknown [id number] 2.16840.1.491707.3.579.2. 1945 Unknown [id number] 2.16.840.1.934252.3.579.2. 1945 Unknown [id number] 2.840.1.566917.3.579.2. 1945 Unknown [id number] 2.16.840.1.726054.3.579.2. 128 1945 Unknown [id number] 2.16840.1.027648.3.579.2. 1285 1945 Unknown [id number] 2.16.840.1.401415.3.579.2. 1285 1945 Unknown [id number] 2.16840.1.311275.3.579.2. 12804-29-194 Unknown [id number] 2.16.840.1.041613.3.579.2. 1286 194 Unknown [id number] 2.16840.1.376935.3.579.2. 1285 1945 Unknown [id number] 2.16840.1.603443.3.579.2. 1285 1945 Unknown [id number] 2.840.1.437393.3.579.2. 1285 1945 Unknown [id number] 2.840.1.458159.3.579.2. 1285 1945 Unknown [id number] 2.840.1.039518.3.579.2. 1285 1945 Unknown [id number] 2.0.1.248595.3.579.2. 1285 1945 Unknown [id number] 2.840.1.059384.3.579.2. 1285 1945 Unknown [id number] 2.0.1.514160.3.579.2. 1285 1945 Unknown [id number] 2.840.1.348631.3.579.2. 1285 1945 Unknown [id number] 2.840.1.272740.3.579.2. 1285 1945 Unknown [id number] 2.840.1.840213.3.579.2. 1286 1945 Unknown [id number] 2.840.1.310918.3.579.2. 1285 1945 Unknown [id number] 2.840.1.589818.3.579.2. 1285194 Unknown [id number] 2.840.1.959362.3.579.2. 1285 1945 Unknown [id number] 2.16.840.1.760437.3.579.2. 1286 Social History Date Type Detail Facility [...] Alcohol intake Current non-drinker of alcohol (finding) [place] National Score (1-10 0), lower number is lower risk Not on file [facility] Start: 07-10-2024 End: 07-10-2025 Alcoholic beverage intake Ex-drinker (finding) [facility] Do you belong to any clubs or organizations such as anglican groups, unions, fraternal or athletic groups, or [...] History of tobacco use [facility] Start: 1945 Sex assigned at Female [facility] Start: 06-27-2015 Sex Female (finding) [facility] Start: 05-22-2021 Gender identity Identifies as female gender (finding) [facility] Start: 05-22-2021 Sexual orientation Heterosexual (finding) [facility] Medical Equipment Procedure Code Equipment Code Equipment Origin al Text Equipment Identifier Dates Patch Dura 1x1in Drmtrx-[place] + Clgn Rgnrt Membr Strl - [id number] Start: 07-03-2021 Goals Date Patient Goal Desired [...] 07-25-2025 Telephone encounter Note Approvals with refills [facility] 07-25-2025 Miscellaneous Notes Approvals with refills documented in this encounter [facility] 07-20-2025 History of Present illness Narrative Patient presents for Evenity injection as scheduled. Calcium reviewed with patient, WNL at 9.4, medication indicated Injection administered in Right upper arm SQ tissue without issue and Pt tolerates well Sites covered with band aids. Next injection scheduled at front office agent Patient discharged in stable condition to private vehicle in care of her granddaughter. documented in this encounter [facility] 07-10-2025 History of Present illness Narrative Associated Problem(s): Stage 3b chronic kidney disease (CKD) (CMS-HCC) Orders: CBC and differential; Future Comprehensive metabolic panel; Future Associated Problem(s): Major depressive disorder, single episode, in full remission Orders: CBC and differential; Future Associated Problem(s): Age-related osteoporosis without current pathological fracture Orders: Vitamin D 25 hydroxy; Future Associated Problem(s): Asthma ([facility]) stable Associated Problem(s): Chronic idiopathic constipation Recommend [...] levels due to family issues. 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 Her research biostatistician is receiving counseling, but the situation remains challenging. Social History: Diet: She consumes dairy products. Living Condition: Lives with a research biostatistician who recently lost a baby. Objective BP [...] Plan Stage 3b chronic kidney disease (CKD) ([facility]) Orders: CBC and differential; Future Comprehensive [...] in 4 months. documented in this encounter [facility] 06-26-2025 Telephone encounter Note Angela asking if she can stop in and leave a urine spc. - she has UTI symptoms - she said Dr Cao usually allows her to just come in and leave a urine spc . Please call and let her know when to come in [phone] [facility] 06-26-2025 Miscellaneous Notes Angela asking if she can stop in and leave a urine spc. - she has UTI symptoms - she said Dr Cao usually allows her to just come in and leave a urine spc . Please call and let her know when to come in [phone] documented in this encounter [facility] 06-13-2025 Evaluation + Plan note Associated Problem(s): Urge incontinence We will see her back in January with a KUB. She will call sooner if she has any problems. If she suspects an infection, she can contact the office so that we can have her stop at the lab for culture [facility] 06-13-2025 Miscellaneous Notes Associated Problem(s): Urge incontinence We will see her back in January with a KUB. She will call sooner if she has any problems. If she suspects an infection, she can contact the office so that we can have her stop at the lab for culture documented in this encounter [facility] 06-13-2025 History of Present illness Narrative Images from the original note were not included. [address] [place] [id number] Patient: Angela Ruth Date of : 1945 [...] concerns. Summary of old records: Notes from md 02/27/25: The Myrbetriq was too expensive so [...] 07/07/2018 Performed by Alexander Leach MD at [facility] ENDOSCOPY COSMETIC SURGERY 1985 DISCECTOMY 1989 Partial L4-5 EGD 2001 EYE SURGERY 2014 FOOT SURGERY 2009 Reattachment of tendon left foot with bone graft HIP SURGERY 2003 Excision of bursa left hip HYSTERECTOMY 1983 INJECTION BLOCK EPIDURAL STEROID LUMBAR/SACRAL Left L 5,1 NR Left 12/20/2020 Performed by Shubham Clifton MD at [facility] INJECTION BLOCK NERVE MEDIAL BRANCH right C 4/5,5/6 Right 05/22/2022 Performed by Shubham Clifton MD at [facility] INJECTION BLOCK NERVE MEDIAL BRANCH right C 4/5,5/6 Right 04/17/2022 Performed by Shubham Clifton MD at [facility] INJECTION CAUDAL EPIDURAL WITH CATHETER, STEROID N/A 03/07/2018 Performed by Shubham Clifton MD at [facility] IN[facility]CTION LARGE JOINT BURSA: bilat hip Bilateral 12/10/2017 Performed by Shubham Clifton MD at [facility] INJECTION MEDIAL BRANCH NERVE BLOCK Bilateral L 4/5, 5/1 Bilateral 06/28/2017 Performed by Shubham Clifton MD at [facility] IN[facility]CTION MEDIAL BRANCH NERVE BLOCK Right L 2/3, 3/4 Right 12/08/2019 Performed by Shubham Clifton MD at [facility] MEDIAL BRANCH NERVE BLOCK RIGHT L23 34 Right 01/19/2020 Performed by Shubham Clifton MD at [facility] SI JOINT Bilateral 04/09/2017 Performed by Shubham Clifton MD at [facility] INJECTION SI JOINT Bilateral SI Joint Bilateral 05/31/2020 Performed by Shubham Cliftno MD at [facility] INJECTION SI JOINT Left SI JOint Left 01/06/2019 Performed by Shubham Clifton MD at [facility] INJECTION SI JOINT Right SI Joint Right 06/09/2019 Performed by Shubham Clifton MD at [facility] SPINE TRANSFORAMINAL Left L 4, 5 NR Left 09/24/2017 Performed by Shubham Clifton MD at [facility] SPINE TRANSFORAMINAL Left L 5,1 Nroot Left 01/08/2023 Performed by Shubham Clifton MD at [facility] SPINE TRANSFORAMINAL Right L 5,1 Nroot Right 11/27/2022 Performed by Shubham Clifton MD at [facility] STEROID EPI 1 WITH SEDATION Left 5,1 NR Left 05/08/2019 Performed by Shubham Clifton MD at [facility] KNEE ARTHROSCOPY 2010, 2013 KNEE SURGERY 2010 2013 Arthroscopy bilateral/repair meniscus right X2, left X1 LAMINECTOMY LUMBAR FORAMENOTOMY MULTI LEVEL L1-2 RIGHT/L2-3 BILATERAL/LUMBAR DRAIN INSERTION N/A 07/03/2021 Performed by Corey Chacon MD at [facility] LAPAROTOMY OOPHERECTOMY Bilateral 1984 LUMBAR DISCECTOMY LUMBAR FUSION 2010 L3-5 LUMBAR LAMINECTOMY MICRO LUMBAR DISCECTOMY L5-S1/ FORAMINOTOMY L5-S1 Left 01/14/2017 Performed by Corey Chacon MD at [facility] OOPHORECTOMY 1982 OTHER SURGICAL HISTORY Knee Arthroscopy With Medial Meniscus Repair OTHER SURGICAL HISTORY Spinal Diskectomy RADIO FREQUENCY ABLATION Left L 4/5, 5/1 Left 12/02/2018 Performed by Shubham Clifton MD at [facility] RADIO FREQUENCY ABLATION Left L 4/5, 5/1 Left 07/30/2017 Performed by Shubham Clifton MD at [facility] RADIO FREQUENCY ABLATION Left SI joint Left 03/31/2019 Performed by Shubham Clifton MD at [facility] RADIO FREQUENCY ABLATION Right L2/3, 3/4 Right 03/29/2020 Performed by Shubham Clifton MD at [facility] RADIOFREQUENCY ABLATION SPINAL Left Si joint Left 05/07/2017 Performed by Shubham Clifton MD at [facility] RADIOFREQUENCY ABLATION SPINAL Right C /,/ Right 06/26/2022 Performed by Shubham Clifton MD at [facility] RADIOFREQUENCY ABLATION SPINAL RIGHT SI JOINT Right 05/21/2017 Performed by Shubham Clifton MD at [facility] RELEASE CARPAL TUNNEL Left 11/04/2021 Performed by Corey Chacon MD at [facility] SHOULDER SURGERY 2011 Right rotator cuff [...] mg total) by mouth in the morning. rjjtggr-ugnhslouenxrk-sqvvzzxv (EXCEDRIN MIGRAINE) 250-250-65 mg per tablet Take [...] hospitalization) Allergies: Indocin [indomethacin], Lincocin [lincomycin], Lincosamides, Puppaolj-8-[id number] antimigraine agents, Adhesive, Eggshell membrane, Influenza virus [...] caffeine as well as addressing constipation with tdrf-pdk-qkgiquv agents. If no improvement can add beta [...] [facility] 06/13/25 1422 [facility] History of Present illness Narrative Patient [...] of her granddaughter. documented in this encounter [facility] 05-16-2025 History of Present illness Narrative [...] of her granddaughter. documented in this encounter [facility] 05-08-2025 Telephone encounter Note prn [facility] [employer] Work Phone: 05-08-2025 Miscellaneous Notes prn Called pt to see if she is planning on scheduling with doctor regarding outgoing referral, pt said no, she does not want to schedule any appts. documented in this encounter [facility] 05-08-2025 Telephone encounter Note Called pt to see if she is planning on scheduling with doctor regarding outgoing referral, pt said no, she does not want to schedule any appts. T [facility] 04-18-2025 History of Present illness Narrative [...] (benign paroxysmal positional vertigo) Brain tumor (benign) ([facility]) Breast disorder 4 biopsies Bronchitis 01/01/2017 Cancer ([facility]) Basal cell Carpal tunnel syndrome Cataract [...] 07/07/2018 Performed by Alexander Leach MD at [facility] ENDOSCOPY COSMETIC SURGERY 1985 DISCECTOMY 1990 Partial L4-5 EGD 2001 EYE SURGERY 2015 FOOT SURGERY 2009 Reattachment of tendon left foot with bone graft HIP SURGERY 2003 Excision of bursa left hip HYSTERECTOMY 1984 INJECTION BLOCK EPIDURAL STEROID LUMBAR/SACRAL Left L 5,1 NR Left 12/20/2020 Performed by Shubham Clifton MD at [facility] INJECTION BLOCK NERVE MEDIAL BRANCH right C 4/5,5/6 Right 05/22/2022 Performed by Shubham Clifton MD at [facility] INJECTION BLOCK NERVE MEDIAL BRANCH right C 4/5,5/6 Right 04/17/2022 Performed by Shubham Clifton MD at [facility] INJECTION CAUDAL EPIDURAL WITH CATHETER, STEROID N/A 03/07/2018 Performed by Shubham Clifton MD at [facility] INJECTION LARGE JOINT BURSA: bilat hip Bilateral 12/10/2017 Performed by Shubham Clifton MD at [facility] INJECTION MEDIAL BRANCH NERVE BLOCK Bilateral L 4/5, 5/1 Bilateral 06/28/2017 Performed by Shubham Clifton MD at [facility] MEDIAL BRANCH NERVE BLOCK Right L 2/3, 3/4 Right 12/08/2019 Performed by Shubham Clifton MD at [facility] INJECTION MEDIAL BRANCH NERVE BLOCK RIGHT L23 34 Right 01/19/2020 Performed by Shubham Clifton MD at [facility] INJECTION SI JOINT Bilateral 04/09/2017 Performed by Shubham Clifton MD at [facility] INJECTION SI JOINT Bilateral SI Joint Bilateral 05/31/2020 Performed by Shubham Clifton MD at [facility] INJECTION SI JOINT Left SI JOint Left 01/06/2019 Performed by Shubham Clifton MD at [facility] INJECTION SI JOINT Right SI Joint Right 06/09/2019 Performed by Shubham Clifton MD at [facility] SPINE TRANSFORAMINAL Left L 4, 5 NR Left 09/24/2017 Performed by Shubham Clifton MD at [facility] INJECTION SPINE TRANSFORAMINAL Left L 5,1 Nroot Left 01/08/2023 Performed by Shubham Clifton MD at [facility] SPINE TRANSFORAMINAL Right L 5,1 Nroot Right 11/27/2022 Performed by Shubham Clifton MD at [facility] STEROID EPI 1 WITH SEDATION Left 5,1 NR Left 05/08/2019 Performed by Shubham Clifton MD at [facility] KNEE ARTHROSCOPY 2013 KNEE SURGERY 2010 2013 Arthroscopy bilateral/repair meniscus right X2, left X1 LAMINECTOMY LUMBAR FORAMENOTOMY MULTI LEVEL L1-2 RIGHT/L2-3 BILATERAL/LUMBAR DRAIN INSERTION N/A 07/03/2021 Performed by Corey Chacon MD at [facility] LAPAROTOMY OOPHERECTOMY Bilateral 1984 LUMBAR DISCECTOMY LUMBAR FUSION 2010 L3-5 LUMBAR LAMINECTOMY MICRO LUMBAR DISCECTOMY L5-S1/ FORAMINOTOMY L5-S1 Left 01/14/2017 Performed by Corey Chacon MD at [facility] OOPHORECTOMY 1982 OTHER SURGICAL HISTORY Knee Arthroscopy With Medial Meniscus Repair OTHER SURGICAL HISTORY Spinal Diskectomy RADIO FREQUENCY ABLATION Left L 4/5, 5/1 Left 12/02/2018 Performed by Shubham Clifton MD at [facility] RADIO FREQUENCY ABLATION Left L 4/5, 5/1 Left 07/30/2017 Performed by Shubham Clifton MD at [facility] RADIO FREQUENCY ABLATION Left SI joint Left 03/31/2019 Performed by Shubham Clifton MD at [facility] RADIO FREQUENCY ABLATION Right L2/3, 3/4 Right 03/29/2020 Performed by Shubham Clifton MD at [facility] RADIOFREQUENCY ABLATION SPINAL Left Si joint Left 05/07/2017 Performed by Shubham Clifton MD at [facility] RADIOFREQUENCY ABLATION SPINAL Right C 4/5,5/6 Right 06/26/2022 Performed by Shubham Clifton MD at [facility] RADIOFREQUENCY ABLATION SPINAL RIGHT SI JOINT Right 05/21/2017 Performed by Shubham Clifton MD at [facility] RELEASE CARPAL TUNNEL Left 11/04/2021 Performed by Corey Chacon MD at [facility] SHOULDER SURGERY 2011 Right rotator cuff [...] mouth in the morning., Disp: , Rfl: cpnfbja-hnjwcnceswxyr-vlvhwwhz (EXCEDRIN MIGRAINE) 250-250-65 mg per tablet, Take [...] Hypotension fainting Lincocin [Lincomycin] Anaphylaxis Lincosamides Anaphylaxis Ayjvrxnx-6-Ef8 Antimigraine Agents History of cardiovascular and cerebrovascular [...] with doctor John Johnson MD, MPH, [facility] [address] [facility] [address] Dept: [phone] FAX: [phone] documented in this encounter [facility] 04-18-2025 Instructions John Johnson MD - 04/18/2025 1:30 PM EDT December 08, 2025 DEXA documented in this encounter [facility] 04-18-2025 History of Present illness Narrative Pt here for evenity injection as scheduled. Denies any issues with previous injections. Calcium 9.5. Evenity given SQ to bilat upper arms. Pt tolerated well. Treatment calendar given. Pt dc'd in stable ambulatory condition. documented in this encounter [facility] 04-09-2025 History of Present illness Narrative Images from the original note were not included. Angela Ruth is a 79 y.o. female presents with chief complaint of Follow-up HPI: HPI History of Present Illness The patient presents for evaluation of migraines, a recent fall, carpal tunnel syndrome, and arthritis. She has not recently consulted with her lean sensei but acknowledges the need for a follow-up [...] 1952 APPENDECTOMY 1965 BREAST BIOPSY x4 - [phone] CHOLECYSTECTOMY 2002 EYE SURGERY 01/21/2023 retinal repair [facility] HEMANGIOMA EXCISION 1946 from upper back HYSTERECTOMY 1984 KNEE SURGERY Bilateral arthroscopic knee surgery x3 (Rx2, Lx1) ([id number]) LAPAROTOMY OOPHERECTOMY 1985 LUMBAR DISCECTOMY 1990 partial LUMBAR DISCECTOMY 01/14/2017 Microdiscetomy L5-S1 LUMBAR DISCECTOMY 07/03/2021 L1-2 partial discectomy, L1-2, L2-3 cleaning out of stenosis in the spinal canal DR. [facility] LUMBAR EPIDURAL INJECTION 12/20/2020 Dr Clifton [...] Depression: Not at risk (02/12/2025) Received from [facility] PHQ-2 Total Score: 2 REVIEW OF SYMPTOMS: [...] in 3 months. documented in this encounter [facility] 03-22-2025 Telephone encounter Note Approvals with refills [facility] 03-22-2025 Miscellaneous Notes Approvals with refills documented in this encounter [facility] 03-21-2025 History of Present illness Narrative Pt here for evenity injection as scheduled. Denies any issues with previous injections. Calcium 9.6. Evenity given SQ to bilat upper arms. Pt tolerated well. Treatment calendar given. Pt dc'd in stable ambulatory condition. documented in this encounter [facility] 02-27-2025 Evaluation + Plan note Associated Problem(s): Urge incontinence We discussed cranberry/D mannose supplements, topical estrogen cream, methenamine, or a prophylactic antibiotic. [facility] 02-27-2025 Miscellaneous Notes Associated Problem(s): Urge incontinence We discussed cranberry/D mannose supplements, topical estrogen cream, methenamine, or a prophylactic antibiotic. documented in this encounter [facility] 02-27-2025 History of Present illness Narrative Images from the original note were not included. [address] [facility] [address] Patient: Angela Ruth Date of : 1945 [...] (benign paroxysmal positional vertigo) Brain tumor (benign) ([facility]) Breast disorder 4 biopsies Bronchitis 01/01/2017 Cancer ([facility]) Basal cell Carpal tunnel syndrome [...] 07/07/2018 Performed by Alexander Leach MD at [facility] ENDOSCOPY COSMETIC SURGERY 1984 DISCECTOMY 1989 Partial L4-5 EGD 2001 EYE SURGERY 2014 FOOT SURGERY 2009 Reattachment of tendon left foot with bone graft HIP SURGERY 2003 Excision of bursa left hip HYSTERECTOMY 1983 INJECTION BLOCK EPIDURAL STEROID LUMBAR/SACRAL Left L 5,1 NR Left 12/20/2020 Performed by Shubham Clifton MD at [facility] INJECTION BLOCK NERVE MEDIAL BRANCH right C 4/5,5/6 Right 05/22/2022 Performed by Shubham Clifton MD at [facility] INJECTION BLOCK NERVE MEDIAL BRANCH right C 4/5,5/6 Right 04/17/2022 Performed by Shubham Clifton MD at [facility] INJECTION CAUDAL EPIDURAL WITH CATHETER, STEROID N/A 03/07/2018 Performed by Shubham Clifton MD at [facility] INJECTION LARGE JOINT BURSA: bilat hip Bilateral 12/10/2017 Performed by Shubham Clifton MD at [facility] INJECTION MEDIAL BRANCH NERVE BLOCK Bilateral L 4/5, 5/1 Bilateral 06/28/2017 Performed by Shubham Clifton MD at [facility] INJECTION MEDIAL BRANCH NERVE BLOCK Right L 2/3, 3/4 Right 12/08/2019 Performed by Shubham Clifton MD at [facility] INJECTION MEDIAL BRANCH NERVE BLOCK RIGHT L23 34 Right 01/19/2020 Performed by Shubham Clifton MD at [facility] IN[facility] SI JOINT Bilateral 04/09/2017 Performed by Shubham Clifton MD at [facility] IN[facility] SI JOINT Bilateral SI Joint Bilateral 05/31/2020 Performed by Shubham Clifton MD at [facility] IN[facility]CTION SI JOINT Left SI JOint Left 01/06/2019 Performed by Shubham Clifton MD at [facility] IN[facility]CTION SI JOINT Right SI Joint Right 06/09/2019 Performed by Shubham Clifton MD at [facility] INJECTION SPINE TRANSFORAMINAL Left L 4, 5 NR Left 09/24/2017 Performed by Shubham Clifton MD at [facility] INJECTION SPINE TRANSFORAMINAL Left L 5,1 Nroot Left 01/08/2023 Performed by Shubham Clifton MD at [facility] INJECTION SPINE TRANSFORAMINAL Right L 5,1 Nroot Right 11/27/2022 Performed by Shubham Clifton MD at [facility] INJECTION STEROID EPI 1 WITH SEDATION Left 5,1 NR Left 05/08/2019 Performed by Shubham Clifton MD at [facility] KNEE ARTHROSCOPY 2010, 2013 KNEE SURGERY 2010 2013 Arthroscopy bilateral/repair meniscus right X2, left X1 LAMINECTOMY LUMBAR FORAMENOTOMY MULTI LEVEL L1-2 RIGHT/L2-3 BILATERAL/LUMBAR DRAIN INSERTION N/A 07/03/2021 Performed by Corey Chacon MD at [facility] LAPAROTOMY OOPHERECTOMY Bilateral 1984 LUMBAR DISCECTOMY LUMBAR FUSION 2009 L3-5 LUMBAR LAMINECTOMY MICRO LUMBAR DISCECTOMY L5-S1/ FORAMINOTOMY L5-S1 Left 01/14/2017 Performed by Corey Chacon MD at [facility] OOPHORECTOMY 1982 OTHER SURGICAL HISTORY Knee Arthroscopy With Medial Meniscus Repair OTHER SURGICAL HISTORY Spinal Diskectomy RADIO FREQUENCY ABLATION Left L 4/5, 5/1 Left 12/02/2018 Performed by Shubham Clifton MD at [facility] RADIO FREQUENCY ABLATION Left L 4/5, 5/1 Left 07/30/2017 Performed by Shubham Clifton MD at [facility] RADIO FREQUENCY ABLATION Left SI joint Left 03/31/2019 Performed by Shubham Clifton MD at [facility] RADIO FREQUENCY ABLATION Right L2/3, 3/4 Right 03/29/2020 Performed by Shubham Clifton MD at [facility] RADIOFREQUENCY ABLATION SPINAL Left Si joint Left 05/07/2017 Performed by Shubham Clifton MD at [facility] RADIOFREQUENCY ABLATION SPINAL Right C 4/5,5/6 Right 06/26/2022 Performed by Shubham Clifton MD at [facility] RADIOFREQUENCY ABLATION SPINAL RIGHT SI JOINT Right 05/21/2017 Performed by Shubham Clifton MD at [facility] RELEASE CARPAL TUNNEL Left 11/04/2021 Performed by Corey Chacon MD at [facility] SHOULDER SURGERY 2012 Right rotator cuff [...] mg total) by mouth in the morning. tedxttn-efzvxxwkpynrc-fvdrrazm (EXCEDRIN MIGRAINE) 250-250-65 mg per tablet Take [...] hospitalization) Allergies: Indocin [indomethacin], Lincocin [lincomycin], Lincosamides, [id number] antimigraine agents, Adhesive, Eggshell membrane, Influenza virus [...] caffeine as well as addressing constipation with mggs-xcf-wcrfkud agents. If no improvement can add beta [...] Kramer or me in 3-4 months in [place] MINH GALLAGHER This note was created with the assistance of a speech recognition program. While intending to generate a timely document that accurately reflects the content of the visit, no guarantee can be provided that every grammatical or spelling mistake has been or will be identified or corrected. Thank you for your understanding. MINH Gallagher 02/27/25 1515 documented in this encounter [facility] 02-27-2025 Instructions MINH Gallagher - 02/27/2025 [...] want to do. documented in this encounter [facility] 02-19-2025 Telephone encounter Note Approvals with refills [facility] 02-19-2025 Miscellaneous Notes Approvals with refills documented in this encounter [facility] 02-16-2025 History of Present illness Narrative Patient here for Evenity injection Vitals WNL Injection given sub q in the Right arm Patient tolerated well Calendar given for next injection documented in this encounter [facility] 02-12-2025 Telephone encounter Note Nancy- pharmacy from [facility] calling to let you know that they received rx for remeron and they cannot fill due to drug interaction with amitriptyline prescribed by Dr. Dorsey. It is a category X- cannot fill. Increased risk of serotonin syndrome. She has been on amitriptyline for years. Please advise jil. Thank you. [facility] 02-12-2025 Miscellaneous Notes Nancy- pharmacy from [facility] calling to let you know that they received rx for remeron and they cannot fill due to drug interaction with amitriptyline prescribed by Dr. Dorsey. It is a category X- cannot fill. Increased risk of serotonin syndrome. She has been on amitriptyline for years. Please advise jil. Thank you. documented in this encounter [facility] 02-12-2025 History of Present illness Narrative [...] mg TID Inderal (tremors) Midrin Migraine cocktails [place] PRN Occipital nerve blocks (last 03/2021) Propranolol [...] vs meningioma). He referred her to the [place] for evaluation for possible gamma knife intervention. [...] (benign paroxysmal positional vertigo) Brain tumor (benign) ([facility]) Breast disorder 4 biopsies Bronchitis 01/01/2017 Cancer ([facility]) Basal cell Carpal tunnel syndrome Cataract [...] 07/07/2018 Performed by Alexander Leach MD at [facility] ENDOSCOPY COSMETIC SURGERY 1985 DISCECTOMY 1990 Partial L4-5 EGD 2001 EYE SURGERY 2015 FOOT SURGERY 2009 Reattachment of tendon left foot with bone graft HIP SURGERY 2004 Excision of bursa left hip HYSTERECTOMY 1984 INJECTION BLOCK EPIDURAL STEROID LUMBAR/SACRAL Left L 5,1 NR Left 12/20/2020 Performed by Shubham Clifton MD at [facility] INJECTION BLOCK NERVE MEDIAL BRANCH right C 4/5,5/6 Right 05/22/2022 Performed by Shubham Clifton MD at [facility] INJECTION BLOCK NERVE MEDIAL BRANCH right C 4/5,5/6 Right 04/17/2022 Performed by Shubham Clifton MD at [facility] CAUDAL EPIDURAL WITH CATHETER, STEROID N/A 03/07/2018 Performed by Shubham Clifton MD at [facility] LARGE JOINT BURSA: bilat hip Bilateral 12/10/2017 Performed by Shubham Clifton MD at [facility] MEDIAL BRANCH NERVE BLOCK Bilateral L 4/5, 5/1 Bilateral 06/28/2017 Performed by Shubham Clifton MD at [facility] MEDIAL BRANCH NERVE BLOCK Right L 2/3, 3/4 Right 12/08/2019 Performed by Shubham Clifton MD at [facility] MEDIAL BRANCH NERVE BLOCK RIGHT L23 34 Right 01/19/2020 Performed by Shubham Clifton MD at [facility] SI JOINT Bilateral 04/09/2017 Performed by Shubham Clifton MD at [facility] SI JOINT Bilateral SI Joint Bilateral 05/31/2020 Performed by Shubham Clifton MD at [facility] SI JOINT Left SI JOint Left 01/06/2019 Performed by Shubham Clifton MD at [facility] SI JOINT Right SI Joint Right 06/09/2019 Performed by Shubham Clifton MD at [facility] SPINE TRANSFORAMINAL Left L 4, 5 NR Left 09/24/2017 Performed by Shubham Clifton MD at [facility] SPINE TRANSFORAMINAL Left L 5,1 Nroot Left 01/08/2023 Performed by Shubham Clifton MD at [facility] SPINE TRANSFORAMINAL Right L 5,1 Nroot Right 11/27/2022 Performed by Shubham Clifton MD at [facility] STEROID EPI 1 WITH SEDATION Left 5,1 NR Left 05/08/2019 Performed by Shubham Clifton MD at [facility] KNEE ARTHROSCOPY 2010, 2013 KNEE SURGERY 2010 2013 Arthroscopy bilateral/repair meniscus right X2, left X1 LAMINECTOMY LUMBAR FORAMENOTOMY MULTI LEVEL L1-2 RIGHT/L2-3 BILATERAL/LUMBAR DRAIN INSERTION N/A 07/03/2021 Performed by Corey Chacon MD at [facility] LAPAROTOMY OOPHERECTOMY Bilateral 1984 LUMBAR DISCECTOMY LUMBAR FUSION 2010 L3-5 LUMBAR LAMINECTOMY MICRO LUMBAR DISCECTOMY L5-S1/ FORAMINOTOMY L5-S1 Left 01/14/2017 Performed by Corey Chacon MD at [facility] OOPHORECTOMY 1982 OTHER SURGICAL HISTORY Knee Arthroscopy With Medial Meniscus Repair OTHER SURGICAL HISTORY Spinal Diskectomy RADIO FREQUENCY ABLATION Left L 4/5, 5/1 Left 12/02/2018 Performed by Shubham Clifton MD at [facility] RADIO FREQUENCY ABLATION Left L 4/5, 5/1 Left 07/30/2017 Performed by Shubham Clifton MD at [facility] RADIO FREQUENCY ABLATION Left SI joint Left 03/31/2019 Performed by Shubham Clifton MD at [facility] RADIO FREQUENCY ABLATION Right L2/3, 3/4 Right 03/29/2020 Performed by Shubham Clifton MD at [facility] RADIOFREQUENCY ABLATION SPINAL Left Si joint Left 05/07/2017 Performed by Shubham Clifton MD at [facility] RADIOFREQUENCY ABLATION SPINAL Right C 4/5,5/ Right 06/26/2022 Performed by Shubham Clifton MD at [facility] RADIOFREQUENCY ABLATION SPINAL RIGHT SI JOINT Right 05/21/2017 Performed by Shubham Clifton MD at [facility] RELEASE CARPAL TUNNEL Left 11/04/2021 Performed by Corey Chacon MD at [facility] SHOULDER SURGERY 2011 Right rotator cuff [...] Resource Strain: Low Risk (04/02/2024) Received from [facility] Overall Financial Resource Strain (CARDIA) Difficulty of Paying Living Expenses: Not very hard Food Insecurity: No Food Insecurity (02/12/2025) Hunger Screening Food Insecurity - Worry: Never True Food Insecurity - Inability: Never True Transportation Needs: Unknown (04/02/2024) Received from [facility] PRAPARE - Transportation Lack of Transportation (Medical): Not on file Lack of Transportation (Non-Medical): No Physical Activity: Insufficiently Active (04/02/2024) Received from [facility] Exercise Vital Sign Days of Exercise per Week: 3 days Minutes of Exercise per Session: 10 min Stress: Stress Concern Present (04/02/2024) Received from [facility] [employer] - Occupational Stress Questionnaire Feeling of Stress : Rather much Social Connections: Moderately Integrated (04/02/2024) Received from [facility] Social Connection and Isolation Panel [NHANES] Frequency of Communication with Friends and Family: More than three times a week Frequency of Social Gatherings with Friends and Family: More than three times a week Attends Spiritism Services: More than 4 times per year Active Member of Clubs or Organizations: Yes Attends Club or Organization Meetings: More than 4 times per year Marital Status: Interpersonal Safety: Not on file Housing Instability: High Risk (04/02/2024) Received from [facility] Housing Stability Vital Sign Unable to [...] mg total) by mouth in the morning. tkqrnrj-gzlyxkslunubm-xbyrixml (EXCEDRIN MIGRAINE) 250-250-65 mg per tablet Take [...] vs meningioma). He referred her to the [place] for evaluation for possible gamma knife intervention. [...] and communicating with other health health care specialist (not separately reported) Documenting clinical information in the electronic or other health record Independently interpreting results (not separately reported) and communicating results to the patient/family/caregiver Care coordination (not separately reported) - Yoanna Dorsey DNP, CHACE 02/12/25 8:31 AM [facility] 02/12/25 0831 documented in this encounter [facility] 02-12-2025 Instructions [facility] Rayo - 02/12/2025 8:00 [...] (VIDYO is fine) documented in this encounter [facility] 02-09-2025 Miscellaneous Notes ----- Message from HAVEN Osullivan sent at 02/09/2025 8:21 AM EDT ----- Regarding: RE: re schedule appt Really any day is fine to reschedule except for Wednesday. ----- Message ----- From: Blanche Aviles CMA Sent: 02/09/2025 7:43 AM EDT To: [place] [facility] Subject: re schedule appt Pt called and said that she needs to reschedule her appt for today and when someone calls she can explain when she needs it rescheduled for. Pt left a voicemail yesterday after hours. I can call and reschedule her if you let me know what's available. documented in this encounter [facility] 02-09-2025 Telephone encounter Note ----- Message from HAVEN Osullivan sent at 02/09/2025 8:21 AM EDT ----- Regarding: RE: re schedule appt Really any day is fine to reschedule except for Wednesday. ----- Message ----- From: Blanche Aviles CMA Sent: 02/09/2025 7:43 AM EDT To: [place] [facility] Subject: re schedule appt Pt called and said that she needs to reschedule her appt for today and when someone calls she can explain when she needs it rescheduled for. Pt left a voicemail yesterday after hours. I can call and reschedule her if you let me know what's available. [facility] 01-23-2025 History of Present illness Narrative [...] 3 APPENDECTOMY 1965 BREAST BIOPSY x4 - [id number] CHOLECYSTECTOMY 2002 EYE SURGERY 01/21/2023 retinal repair [facility] HEMANGIOMA EXCISION 1946 from upper back HYSTERECTOMY 1984 KNEE SURGERY Bilateral arthroscopic knee surgery x3 (Rx2, Lx1) ([id number]) LAPAROTOMY OOPHERECTOMY 1985 LUMBAR DISCECTOMY 1989 partial LUMBAR DISCECTOMY 01/14/2017 Microdiscetomy L5-S1 LUMBAR DISCECTOMY 07/03/2021 L1-2 partial discectomy, L1-2, L2-3 cleaning out of stenosis in the spinal canal [facility] LUMBAR EPIDURAL INJECTION 12/20/2020 Dr Clifton [...] Depression - At risk (07/13/2024) Received from [facility] PHQ-2 Total Score: 3 REVIEW OF SYMPTOMS: [...] Assessment & Plan documented in this encounter [facility] 01-15-2025 History of Present illness Narrative [...] 1953 APPENDECTOMY 1965 BREAST BIOPSY x4 - [phone] CHOLECYSTECTOMY 2002 EYE SURGERY 01/21/2023 retinal repair [facility] HEMANGIOMA EXCISION 1946 from upper back HYSTERECTOMY 1984 KNEE SURGERY Bilateral arthroscopic knee surgery x3 (Rx2, Lx1) ([id number]) LAPAROTOMY OOPHERECTOMY 1985 LUMBAR DISCECTOMY 1989 partial LUMBAR DISCECTOMY 01/14/2017 Microdiscetomy L5-S1 LUMBAR DISCECTOMY 07/03/2021 L1-2 partial discectomy, L1-2, L2-3 cleaning out of stenosis in the spinal canal [facility] LUMBAR EPIDURAL INJECTION 12/20/2020 Dr Clifton [...] Depression - At risk (07/13/2024) Received from [facility] PHQ-2 Total Score: 3 REVIEW OF SYMPTOMS: [...] in 1 month. documented in this encounter [facility] 01-11-2025 History of Present illness Narrative Patient does not have a current calcium completed Patient will have calcium done and will call to re-schedule documented in this encounter [facility] 01-09-2025 History of Present illness Narrative Images from the original note were not included. Subjective Patient ID: Angela Ruth is a 79 y.o. female who presents for Hoarseness Pt reports a many year h/o trouble with her voice. 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 [...] Paternal Grandmother Sandra Keyur Stroke Paternal Grandmother Snadra Keyur Alcohol abuse Father's Brother Jesús Baer Cancer Mother's Sister Jannette Meganmariel Cancer Mother's Sister Nisa Dunham Cancer Mother's Sister Janet Mejia COPD Father's Brother Jluis Beardrebekah Early natural [...] depressive disorder, single episode, in full remission ([facility]) 10/24/2019 Hyperlipidemia (CMS/[facility]) 11/08/2015 History of lumbar fusion 12/11/2015 History of depression 2018 Gastroesophageal reflux disease without esophagitis 09/15/2021 Herniation of lumbar intervertebral disc with radiculopathy 01/07/2017 Essential tremor 12/12/2018 Essential hypertension (CMS/HCC) 03/13/2013 Degeneration of lumbosacral intervertebral disc 08/14/2016 Chronic idiopathic constipation 07/10/2019 Bilateral occipital neuralgia 03/02/2019 Asthma (CMS/[facility]) 03/26/2016 Age-related osteoporosis without current pathological fracture (CMS/[facility]) 06/04/2023 Acquired hypothyroidism ([facility]) 09/29/2019 1st degree AV block 06/10/2021 Bilateral nephrolithiasis 03/02/2023 Stage 3b chronic kidney disease (CKD) (CMS/[facility]) 06/04/2023 History of falling 11/04/2023 Lung nodule 02/15/2024 Brain lesion 02/15/2024 Balance problem 06/12/2019 Impingement syndrome of right shoulder 08/14/2011 Resolved Ambulatory Problems Diagnosis Date Noted Adjustment disorder with anxiety (CMS/[facility]) 05/04/2023 Migraine without status migrainosus, not intractable (CMS/[facility]) 06/04/2023 Lumbago with sciatica, right side 06/04/2023 Disc displacement, lumbar 05/05/2019 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 01/14/2017 Cervical spondylosis without myelopathy 04/01/2022 Age related osteoporosis ([facility]) 12/19/2019 Past Medical History: Diagnosis Date Allergic Allergic rhinitis Back pain Basal cell carcinoma Benign essential hypertension (CMS/[facility]) Bilateral carpal tunnel syndrome Chronic kidney disease Chronic pain Depression (CMS/HCC) GERD (gastroesophageal reflux disease) Sky's thyroiditis (CMS/HCC) HL (hearing loss) Hypothyroidism (CMS/HCC) Laryngitis Migraine (CMS/[facility]) Neuromuscular disorder (CMS/[facility]) Osteoarthritis Osteopenia Osteoporosis (CMS/[facility]) Scoliosis Subdural hematoma (CMS/[facility]) 12/2017 Urinary tract infection Vertigo Past Surgical History: Procedure Laterality Date ADENOIDECTOMY 3 APPENDECTOMY 1965 BREAST BIOPSY x4 - [id number] CHOLECYSTECTOMY 2001 EYE SURGERY 01/21/2023 retinal repair [facility] HEMANGIOMA EXCISION 1946 from upper back HYSTERECTOMY 1984 KNEE SURGERY Bilateral arthroscopic knee surgery x3 (Rx2, Lx1) ([id number]) LAPAROTOMY OOPHERECTOMY 1985 LUMBAR DISCECTOMY 1989 partial LUMBAR DISCECTOMY 01/14/2017 Microdiscetomy L5-S1 LUMBAR DISCECTOMY 07/03/2021 L1-2 partial discectomy, L1-2, L2-3 cleaning out of stenosis in the spinal canal [facility] LUMBAR EPIDURAL INJECTION 12/20/2020 Dr Clifton [...] will refer pt to heavenly nevarez at [facility] for tx. Consider laryngology referral for TVF augmentation if no help documented in this encounter [facility] 01-01-2025 History of Present illness Narrative Patient here for UA Dip. Dip added to chart and sent for culture documented in this encounter [facility] 01-01-2025 Telephone encounter Note Are you able to have her come in and give us a specimen in the office for a nurse visit? We can run a test in the office during the nurse visit and send for culture and sensitivity if needed but we will need her to get the specimen while in the office during the nurse visit. [facility] 01-01-2025 Miscellaneous Notes Are you able [...] her know :) documented in this encounter [facility] 01-01-2025 Telephone encounter Note Pt is [...] her back and let her know :) [facility] 12-26-2024 History of Present illness Narrative [...] Flowsheet Row Office Visit from 12/26/2024 in [facility] FNR FM with Bia Cao MD Hospital Information ED, Hospital or Assisted Facility Discharge? ED Patient has been contacted within 1 week of being seen in the ED Yes Diagnosis Fall Discharge Date 12/23/24 Discharged To: Home Setting Discharge Hospital [facility] Engagement Call Start Time 925 Admission [...] 1953 APPENDECTOMY 1965 BREAST BIOPSY x4 - [phone] CHOLECYSTECTOMY 2002 EYE SURGERY 01/21/2023 retinal repair [facility] HEMANGIOMA EXCISION 1946 from upper back HYSTERECTOMY 1984 KNEE SURGERY Bilateral arthroscopic knee surgery x3 (Rx2, Lx1) ([id number]) LAPAROTOMY OOPHERECTOMY 1984 LUMBAR DISCECTOMY 1989 partial LUMBAR DISCECTOMY 01/14/2017 Microdiscetomy L5-S1 LUMBAR DISCECTOMY 07/03/2021 L1-2 partial discectomy, L1-2, L2-3 cleaning out of stenosis in the spinal canal [facility] LUMBAR EPIDURAL INJECTION 12/20/2020 Dr Clifton [...] Depression - At risk (07/13/2024) Received from [facility] PHQ-2 Total Score: 3 REVIEW OF SYMPTOMS: [...] Medication change (Remeron) documented in this encounter [facility] 12-25-2024 Telephone encounter Note Sorry I forgot to add I scheduled her an appt. [facility] 12-25-2024 Miscellaneous Notes Sorry I forgot to add I scheduled her an appt. Please call to check on her This is Angela Ruth. My phone number is [phone] for I am calling to let Dr Sutherland know that I fell on Wednesday night and was seen in, ER. Thank you very much, bye. documented in this encounter [facility] 12-25-2024 Telephone encounter Note Please call to check on her [facility] 12-25-2024 Telephone encounter Note This is Angela Ruth. My phone number is [phone] for I am calling to let Dr Sutherland know that I fell on Wednesday night and was seen in, ER. Thank you very much, bye. [facility] 12-19-2024 History of Present illness Narrative Images from the original note were not included. [address] [place] [address] [facility] [id number] Patient: Angela Ruth Date of : 1945 [...] 07/07/2018 Performed by Alexander Leach MD at [facility] ENDOSCOPY COSMETIC SURGERY 1984 DISCECTOMY 1989 Partial L4-5 EGD 2001 EYE SURGERY 2014 FOOT SURGERY 2009 Reattachment of tendon left foot with bone graft HIP SURGERY 2003 Excision of bursa left hip HYSTERECTOMY 1984 INJECTION BLOCK EPIDURAL STEROID LUMBAR/SACRAL Left L 5,1 NR Left 12/20/2020 Performed by Shubham Clifton MD at [facility] INJECTION BLOCK NERVE MEDIAL BRANCH right C 4/5,5/6 Right 05/22/2022 Performed by Shubham Clifton MD at [facility] INJECTION BLOCK NERVE MEDIAL BRANCH right C 4/5,5/6 Right 04/17/2022 Performed by Shubham Clifton MD at [facility] CAUDAL EPIDURAL WITH CATHETER, STEROID N/A 03/07/2018 Performed by Shubham Clifton MD at [facility] LARGE JOINT BURSA: bilat hip Bilateral 12/10/2017 Performed by Shubham Clifton MD at [facility] MEDIAL BRANCH NERVE BLOCK Bilateral L 4/5, 5/1 Bilateral 06/28/2017 Performed by Shubham Clifton MD at [facility] INJECTION MEDIAL BRANCH NERVE BLOCK Right L 2/3, 3/4 Right 12/08/2019 Performed by Shubham Clifton MD at [facility] MEDIAL BRANCH NERVE BLOCK RIGHT L23 34 Right 01/19/2020 Performed by Shubham Clifton MD at [facility] INJECTION SI JOINT Bilateral 04/09/2017 Performed by Shubham Clifton MD at [facility] SI JOINT Bilateral SI Joint Bilateral 05/31/2020 Performed by Shubham Clifton MD at [facility] INJECTION SI JOINT Left SI JOint Left 01/06/2019 Performed by Shubham Clifton MD at [facility] INJECTION SI JOINT Right SI Joint Right 06/09/2019 Performed by Shubham Clifton MD at [facility] SPINE TRANSFORAMINAL Left L 4, 5 NR Left 09/24/2017 Performed by Shubham Clifton MD at [facility] INJECTION SPINE TRANSFORAMINAL Left L 5,1 Nroot Left 01/08/2023 Performed by Shubham Clifton MD at [facility] INJECTION SPINE TRANSFORAMINAL Right L 5,1 Nroot Right 11/27/2022 Performed by Shubham Clifton MD at [facility] STEROID EPI 1 WITH SEDATION Left 5,1 NR Left 05/08/2019 Performed by Shubham Clifton MD at [facility] KNEE ARTHROSCOPY 2010, 2013 KNEE SURGERY 2010 2013 Arthroscopy bilateral/repair meniscus right X2, left X1 LAMINECTOMY LUMBAR FORAMENOTOMY MULTI LEVEL L1-2 RIGHT/L2-3 BILATERAL/LUMBAR DRAIN INSERTION N/A 07/03/2021 Performed by Corey Chacon MD at [facility] LAPAROTOMY OOPHERECTOMY Bilateral 1984 LUMBAR DISCECTOMY LUMBAR FUSION 2010 L3-5 LUMBAR LAMINECTOMY MICRO LUMBAR DISCECTOMY L5-S1/ FORAMINOTOMY L5-S1 Left 01/14/2017 Performed by Corey Chacon MD at [facility] OOPHORECTOMY 1982 OTHER SURGICAL HISTORY Knee Arthroscopy With Medial Meniscus Repair OTHER SURGICAL HISTORY Spinal Diskectomy RADIO FREQUENCY ABLATION Left L 4/5, 5/1 Left 12/02/2018 Performed by Shubham Clifton MD at [facility] RADIO FREQUENCY ABLATION Left L 4/5, 5/1 Left 07/30/2017 Performed by Shubham Clifton MD at [facility] RADIO FREQUENCY ABLATION Left SI joint Left 03/31/2019 Performed by Shubham Clifton MD at [facility] RADIO FREQUENCY ABLATION Right L2/3, 3/4 Right 03/29/2020 Performed by Shubham Clifton MD at [facility] RADIOFREQUENCY ABLATION SPINAL Left Si joint Left 05/07/2017 Performed by Shubham Clifton MD at [facility] RADIOFREQUENCY ABLATION SPINAL Right C 4/5,5/6 Right 06/26/2022 Performed by Shubham Clifton MD at [facility] RADIOFREQUENCY ABLATION SPINAL RIGHT SI JOINT Right 05/21/2017 Performed by Shubham Cilfton MD at [facility] RELEASE CARPAL TUNNEL Left 11/04/2021 Performed by Corey Chacon MD at [facility] SHOULDER SURGERY 2011 Right rotator cuff [...] mg total) by mouth in the morning. agrqphw-ocnjwrcfeprvl-opsqrggg (EXCEDRIN MIGRAINE) 250-250-65 mg per tablet Take [...] caffeine as well as addressing constipation with hgym-lzj-ysimllf agents. If no improvement can add beta [...] for your understanding. documented in this encounter [facility] 12-12-2024 Telephone encounter Note Approvals with refills [facility] 12-12-2024 Miscellaneous Notes Approvals with refills documented in this encounter [facility] 12-08-2024 History of Present illness Narrative [...] skin lesions today. documented in this encounter [facility] 12-06-2024 History of Present illness Narrative [...] (benign paroxysmal positional vertigo) Brain tumor (benign) ([facility]) Breast disorder 4 biopsies Bronchitis 01/01/2017 Cancer ([facility]) Basal cell Carpal tunnel syndrome [...] 07/07/2018 Performed by Alexander Leach MD at [facility] ENDOSCOPY COSMETIC SURGERY 1984 DISCECTOMY 1990 Partial L4-5 EGD 2001 EYE SURGERY 2014 FOOT SURGERY 2008 Reattachment of tendon left foot with bone graft HIP SURGERY 2003 Excision of bursa left hip HYSTERECTOMY 1983 INJECTION BLOCK EPIDURAL STEROID LUMBAR/SACRAL Left L 5,1 NR Left 12/20/2020 Performed by Shubham Clifton MD at [facility] INJECTION BLOCK NERVE MEDIAL BRANCH right C 4/5,5/6 Right 05/22/2022 Performed by Shubham Clifton MD at [facility] INJECTION BLOCK NERVE MEDIAL BRANCH right C 4/5,5/6 Right 04/17/2022 Performed by Shubham Clifton MD at [facility] INJECTION CAUDAL EPIDURAL WITH CATHETER, STEROID N/A 03/07/2018 Performed by Shubham Clifton MD at [facility] LARGE JOINT BURSA: bilat hip Bilateral 12/10/2017 Performed by Shubham Clifton MD at [facility] INJECTION MEDIAL BRANCH NERVE BLOCK Bilateral L 4/5, 5/1 Bilateral 06/28/2017 Performed by Shubham Clifton MD at [facility] INJECTION MEDIAL BRANCH NERVE BLOCK Right L 2/3, 3/4 Right 12/08/2019 Performed by Shubham Clifton MD at [facility] INJECTION MEDIAL BRANCH NERVE BLOCK RIGHT L23 34 Right 01/19/2020 Performed by Shubham Clifton MD at [facility] SI JOINT Bilateral 04/09/2017 Performed by Shubham Clifton MD at [facility] SI JOINT Bilateral SI Joint Bilateral 05/31/2020 Performed by Shubham Clifton MD at [facility] SI JOINT Left SI JOint Left 01/06/2019 Performed by Shubham Clifton MD at [facility] SI JOINT Right SI Joint Right 06/09/2019 Performed by Shubham Clifton MD at [facility] SPINE TRANSFORAMINAL Left L 4, 5 NR Left 09/24/2017 Performed by Shubham Clifton MD at [facility] SPINE TRANSFORAMINAL Left L 5,1 Nroot Left 01/08/2023 Performed by Shubham Clifton MD at [facility] SPINE TRANSFORAMINAL Right L 5,1 Nroot Right 11/27/2022 Performed by Shubham Clifton MD at [facility] STEROID EPI 1 WITH SEDATION Left 5,1 NR Left 05/08/2019 Performed by Shubham Clifton MD at [facility] KNEE ARTHROSCOPY 2010, 2013 KNEE SURGERY 2010 2013 Arthroscopy bilateral/repair meniscus right X2, left X1 LAMINECTOMY LUMBAR FORAMENOTOMY MULTI LEVEL L1-2 RIGHT/L2-3 BILATERAL/LUMBAR DRAIN INSERTION N/A 07/03/2021 Performed by Corey Chacon MD at [facility] LAPAROTOMY OOPHERECTOMY Bilateral 1984 LUMBAR DISCECTOMY LUMBAR FUSION 2009 L3-5 LUMBAR LAMINECTOMY MICRO LUMBAR DISCECTOMY L5-S1/ FORAMINOTOMY L5-S1 Left 01/14/2017 Performed by Corey Chacon MD at [facility] OOPHORECTOMY 1982 OTHER SURGICAL HISTORY Knee Arthroscopy With Medial Meniscus Repair OTHER SURGICAL HISTORY Spinal Diskectomy RADIO FREQUENCY ABLATION Left L 4/5, 5/1 Left 12/02/2018 Performed by Shubham Clifton MD at [facility] RADIO FREQUENCY ABLATION Left L 4/5, 5/1 Left 07/30/2017 Performed by Shubham Clifton MD at [facility] RADIO FREQUENCY ABLATION Left SI joint Left 03/31/2019 Performed by Shubham Clifton MD at [facility] RADIO FREQUENCY ABLATION Right L2/3, 3/4 Right 03/29/2020 Performed by Shubham Clifton MD at [facility] RADIOFREQUENCY ABLATION SPINAL Left Si joint Left 05/07/2017 Performed by Shubham Clifton MD at [facility] RADIOFREQUENCY ABLATION SPINAL Right C 4/5,5/6 Right 06/26/2022 Performed by Shubham Clifton MD at [facility] RADIOFREQUENCY ABLATION SPINAL RIGHT SI JOINT Right 05/21/2017 Performed by Shubham Clifton MD at [facility] RELEASE CARPAL TUNNEL Left 11/04/2021 Performed by Corey Chacon MD at [facility] SHOULDER SURGERY 2011 Right rotator cuff [...] mouth in the morning., Disp: , Rfl: rwggyyz-rrazjvawzohpg-dgbbmzub (EXCEDRIN MIGRAINE) 250-250-65 mg per tablet, Take [...] months with doctor John Johnson MD, MPH, [facility] [address] [address] Dept: [phone] FAX: [phone] documented in this encounter [facility] 11-29-2024 Telephone encounter Note Approvals with refills [facility] 11-29-2024 Miscellaneous Notes Approvals with refills documented in this encounter [facility] 11-06-2024 Telephone encounter Note Approvals with refills [facility] 11-06-2024 Miscellaneous Notes Approvals with refills documented in this encounter [facility] 10-30-2024 History of Present illness Narrative [...] (four) hours., Disp: 18 g, Rfl: 11 rddaswrfnc-xxsshmaplfupk-bhvdpvk e 50-325-40 MG tablet, Take 1 tablet [...] 1952 APPENDECTOMY 1965 BREAST BIOPSY x4 - [id number] CHOLECYSTECTOMY 2002 EYE SURGERY 01/21/2023 retinal repair [facility] HEMANGIOMA EXCISION 1946 from upper back HYSTERECTOMY 1984 KNEE SURGERY Bilateral arthroscopic knee surgery x3 (Rx2, Lx1) ([id number]) LAPAROTOMY OOPHERECTOMY 1985 LUMBAR DISCECTOMY 1990 partial LUMBAR DISCECTOMY 01/14/2017 Microdiscetomy L5-S1 LUMBAR DISCECTOMY 07/03/2021 L1-2 partial discectomy, L1-2, L2-3 cleaning out of stenosis in the spinal canal [facility] LUMBAR EPIDURAL INJECTION 12/20/2020 Dr Clifton [...] Brother Jesús Baer Cancer Mother's Sister Jannette Nasicmento Cancer Mother's Sister Nisa Dunham Cancer Mother's [...] Santo Christianson DPM documented in this encounter [facility] 10-30-2024 Instructions Santo Christianson DPM - 10/30/2024 1:45 PM EST As noted documented in this encounter [facility] 10-06-2024 Telephone encounter Note Voicemail left for Angela at [phone]. Call back number given. 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 My note was forward to Dr. Hoover for review. At this time we recommend follow up and new imaging in 1 year. Rose Velasquez MSN, SCRAP SAWYER, ROUTE SALESMAN AND DRIVER Certified Nurse Practitioner [place] Work Phone: 10-06-2024 Miscellaneous Notes Voicemail left for Angela at [phone]. Call back number given. 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 My note was forward to Dr. Hoover for review. At this time we recommend follow up and new imaging in 1 year. Rose Velasquez MSN, SCRAP SAWYER, ROUTE SALESMAN AND DRIVER Certified Nurse Practitioner General Call Caller : Angela Contact Reason for Call : Did you speak with Dr. Hoover regarding her most recent appt? Patient requesting return call ? Yes documented in this encounter [place] 10-04-2024 Telephone encounter Note General Call Caller : Angela Contact Reason for Call : Did you speak with Dr. Hoover regarding her most recent appt? Patient requesting return call ? Yes [place] 09-26-2024 Note HNO ID: [id number] Author: ROSE VELASQUEZ APRN.CNP Service: ? Author Type: Nurse Practitioner Type: Progress Notes Filed: 09/26/2024 15:27 Note Text: [facility] NEURO-ONCOLOGY OUTPATIENT CLINIC NOTE [...] side to side (more content not included)... [facility] 09-26-2024 History of Present illness Narrative Images from the original note were not included. [facility] NEURO-ONCOLOGY OUTPATIENT CLINIC NOTE [...] DATE OF EXAM: Sep 26 2024 12:29PM [facility] 0295 - MRI BRAIN WO/W IVCON [...] petrous ridge presumed meningioma compared to 03/02/2024. Sales Representative [employer]: ALLYSSA Transcribe Date/Time: Sep 26 2024 2:10P [...] - All questions were answered. Rose Velasquez APRN.ROUTE SALESMAN AND DRIVER Certified Nurse Practitioner cc: Mandi Hoover MD - Epic documented in this encounter [place] 09-26-2024 History of Present illness Narrative Radiology [...] TIME: 11:27 AM documented in this encounter [place] 09-26-2024 Note HNO ID: [id number] Author: JESSICA HOWELL RN Service: Nursing Author [...] DATE: September 26, 2024 TIME: 11:27 AM [facility] 08-14-2024 History of Present illness Narrative [...] past. She does not currently have an director dermatology. SUBJECTIVE: MEDICATIONS: Current Outpatient Medications Medication Instructions albuterol HFA 90 mcg/act inhaler 2 puffs, Inhalation, Every 4 hours alendronate (FOSAMAX) 70 mg, Oral, Every 7 days amitriptyline (ELAVIL) 50 mg, Oral, Nightly Ascorbic Acid (vitamin C) 1000 MG tablet Every 24 hours aspirin 81 mg, Oral, Daily RT atorvastatin (LIPITOR) 40 mg, Oral, Daily buprenorphine (Butrans) 7.5 MCG/HR 1 patch, Transdermal, Weekly zqgdmfcwai-rhsuhryekdman-tkgkgop e 50-325-40 MG tablet 1 tablet, Oral, [...] provided. She does not currently have an director dermatology but is open to seeing one. A COVID-19 test was conducted today, which returned negative. She is advised to stay hydrated. If her condition deteriorates, a repeat COVID-19 test will be necessary. documented in this encounter [facility] 08-08-2024 History of Present illness Narrative [...] (Butrans) 7.5 MCG/HR 1 patch, Transdermal, Weekly azjaukaycs-lzfxwfibitmpq-blupxww e 50-325-40 MG tablet 1 tablet, Oral, [...] 1952 APPENDECTOMY 1965 BREAST BIOPSY x4 - [id number] CHOLECYSTECTOMY 2002 EYE SURGERY 01/21/2023 retinal repair [facility] HEMANGIOMA EXCISION 1946 from upper back HYSTERECTOMY 1983 KNEE SURGERY Bilateral arthroscopic knee surgery x3 (Rx2, Lx1) ([id number]) LAPAROTOMY OOPHERECTOMY 1985 LUMBAR DISCECTOMY 1989 partial LUMBAR DISCECTOMY 01/14/2017 Microdiscetomy L5-S1 LUMBAR DISCECTOMY 07/03/2021 L1-2 partial discectomy, L1-2, L2-3 cleaning out of stenosis in the spinal canal [facility] LUMBAR EPIDURAL INJECTION 12/20/2020 Dr Clifton [...] Never Depression: At risk (07/13/2024) Received from [facility] PHQ-2 Total Score: 3 REVIEW OF SYMPTOMS: [...] 25 mg were renewed and sent to [facility] pharmacy. Follow-up The patient will follow up in 4 months. documented in this encounter [facility] 07-10-2024 History of Present illness Narrative [...] consulted with Dr. Romano, a urologist in [place], some time ago but has not sought [...] (Butrans) 7.5 MCG/HR 1 patch, Transdermal, Weekly yqcmralrrx-sofqauypdxetm-jngmpbm e 50-325-40 MG tablet 1 tablet, Oral, [...] 1953 APPENDECTOMY 1965 BREAST BIOPSY x4 - [id number] CHOLECYSTECTOMY 2002 EYE SURGERY 01/21/2023 retinal repair [facility] HEMANGIOMA EXCISION 1946 from upper back HYSTERECTOMY 1983 KNEE SURGERY Bilateral arthroscopic knee surgery x3 (Rx2, Lx1) ([id number]) LAPAROTOMY OOPHERECTOMY 1985 LUMBAR DISCECTOMY 1989 partial LUMBAR DISCECTOMY 01/14/2017 Microdiscetomy L5-S1 LUMBAR DISCECTOMY 07/03/2021 L1-2 partial discectomy, L1-2, L2-3 cleaning out of stenosis in the spinal canal [facility] LUMBAR EPIDURAL INJECTION 12/20/2020 Dr Clifton [...] Depression: Not at risk (03/10/2024) Received from [facility], [facility] PHQ-2 Total Score: 0 REVIEW OF SYMPTOMS: [...] by Dr. Márquez documented in this encounter [facility] 04-04-2024 Instructions Anson Ennis MD - 04/04/2024 12:35 PM EDT - obtain follow up MRI brain wwo in 6 months - please follow up with your multi skilled operator (we do not think the etiology of your hearing loss is due to your meningioma) - our team will notify Dr. Bia Cao regarding these findings; we recommend investigating other etiologies of imbalance in Mrs. Ruth documented in this encounter [place] 04-04-2024 Nurse Note Additional intake questions: Has the patient had fever, nausea, vomiting, diarrhea, constipation, fatigue for > 1 week? No Does the patient have a decreased appetite? No Does patient want to see a Fairing Worker? No (yes to any of above refer patient to schedulers for dietitian appointment) ) Does patient have any new or increased numbness or tingling of extremities? No Is patient interested in fertility information? No Does patient need any prescription refills? No Does patient have an advanced directive in place? Yes, no copy found in [facility] Patient referred to [facility] Electronically Signed By: Josette Sheppard MA [place] 04-04-2024 Nurse Note Additional intake questions: Has the patient had fever, nausea, vomiting, diarrhea, constipation, fatigue for > 1 week? No Does the patient have a decreased appetite? No Does patient want to see a Fairing Worker? No (yes to any of above refer patient to schedulers for dietitian appointment) ) Does patient have any new or increased numbness or tingling of extremities? No Is patient interested in fertility information? No Does patient need any prescription refills? No Does patient have an advanced directive in place? Yes, no copy found in [facility] Patient referred to [facility] Electronically Signed By: Josette Sheppard MA documented in this encounter [place] 04-04-2024 History of Present illness Narrative Images from the original note were not included. SECTION OF SKULL BASE SURGERY MINIMALLY INVASIVE CRANIAL BASE & PITUITARY SURGERY PROGRAM Jessica Caro [facility] CC: Patient Care Team: Bia Cao as PCP ([facility]) Corey Chacon MD as NI Referring [...] 6 months with a repeat MRI scan ([place]/West side preference) and clinic visit with one of our skull base team advance practice providers ([place] side preference). 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 The patient [...] contrast and shows a 1.2 cm R LIFE SKILLS SPECIALIST contrast-enhancing lesion concerning for either schwannoma or meningioma- no associated mass effect or edema. The patient takes ASA 81 mg daily for cardioprotection per her PCP. The patient has been using a cane for the last 5-6 years. The patient reports that ~6 weeks ago, she walked into her garage door and fell. The patient has not seen an multi skilled operator or a vestibular therapist. Past Medical [...] contrast and shows a 1.2 cm R LIFE SKILLS SPECIALIST contrast-enhancing lesion extra-axial mass arising from the right posterior petrous ridge with no significant mass effect and not abutting the right vestibular cochlear complex. documented in this encounter [place] 04-04-2024 Note HNO ID: [id number] Author: MANDI HOOVER MD Service: ? Author Type: Physician Type: Progress Notes Filed: 04/05/2024 17:50 Note Text: SECTION OF SKULL BASE SURGERY MINIMALLY INVASIVE CRANIAL BASE AND PITUITARY SURGERY PROGRAM Jessica Caro [facility] CC: Patient Care Team: Bia Cao as PCP ([facility]) Corey Chacon MD as NI Referring [...] our skull base team advance practice providers ([place] side preference). 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 The patient [...] contrast and shows a 1.2 cm R LIFE SKILLS SPECIALIST contrast-enhancing lesion concerning for either schwannoma or meningioma- no associated mass effect or edema. The patient takes ASA 81 mg daily for cardioprotection per her PCP. The patient has been using a cane for the last 5-6 years. The patient reports that ~6 weeks ago, she walked into her garage door and fell. The patient has not seen an multi skilled operator or a vestibular therapist. Past Medical [...] mg (VYTORIN) 10-40 (more content not included)... [facility] 03[facility]28[facility] Telephone encounter Note Called patient to schedule an appointment. No ans/left message to call the office back. Appointment scheduled: 04/04/2024 10:30 AM (Arrive by 10:15 AM) Mandi Hoover MD [facility] Etelvina Trujillo, PAC [place] 03-28-2024 Miscellaneous Notes Called patient to schedule an appointment. No ans/left message to call the office back. Appointment scheduled: 04/04/2024 10:30 AM (Arrive by 10:15 AM) Mandi Hoover MD [facility] [place] Etelvina Trujillo, PAC Time Frame: First available Provider: Kiko Landrum Soni Referring: Corey Chacon MD Images to be requested from [facility] Dx: Right CPA mass Patient: Angela Ruth Address: Angela Ruth [address] [place] [address] Dr [place] [address] Per Triage: HISTORY OF PRESENT ILLNESS Angela [...] extracranial soft tissues are unremarkable. Rose Velasquez APRN.ROUTE SALESMAN AND DRIVER March 28, 2024 Referral source: Corey Chacon MD ([facility]) Reason for visit: consideration of gamma knife for 1.2 cm enhancing lesion at right cerebelloponitine angle with leading differential including vestibular schwannoma and meningioma External records: Sent with referral and pulled from [facility] Triage: Required, forwarded to [facility] by telephone encounter sent to [facility] Scheduling Triage. Financial clearance: Not required to schedule documented in this encounter [place] 03-28-2024 Telephone encounter Note Time Frame: First available Provider: Kiko Landrum Soni Referring: Corey Chacon MD Images to be requested from [facility] Dx: Right CPA mass Patient: Angela Ruth Address: Angela Ruth [id number] [place] [address] Per Triage: HISTORY OF PRESENT ILLNESS Angela [...] unremarkable. Rose Velasquez APRN.MAHENDRA March 28, 2024 [place] 03-24-2024 Telephone encounter Note Referral source: Corey Chacon MD ([facility]) Reason for visit: consideration of gamma knife for 1.2 cm enhancing lesion at right cerebelloponitine angle with leading differential including vestibular schwannoma and meningioma External records: Sent with referral and pulled from [facility] Triage: Required, forwarded to [facility] by telephone encounter sent to [facility] Scheduling Triage. Financial clearance: Not required to schedule [place] Evaluation note Diagnosis General weakness- Primary Other malaise and fatigue History of falling documented in this encounter [facility]* Diagnosis Mixed hyperlipidemia (CMS/HCC)- Primary Mixed hyperlipidemia Stress incontinence of urine documented in this encounter [facility]* Diagnosis General weakness- Primary Other malaise and fatigue History of falling documented in this encounter [facility] HealthcareEvaluation note* Diagnosis General weakness- Primary Other malaise and fatigue History of falling documented in this encounter [facility] HealthcareEvaluation note* Diagnosis Brain mass [G93.89]- Primary Unspecified condition of brain [facility] Diagnosis Intracranial meningioma (HCC)- Primary Benign neoplasm of cerebral meninges Sensorineural hearing loss (SNHL) of right ear, unspecified hearing status on contralateral side Dizziness Dizziness and giddiness [facility] Diagnosis Intracranial meningioma (HCC)- Primary Benign neoplasm of cerebral meninges Benign neoplasm of meninges (HCC) Benign neoplasm of cerebral meninges [facility] Diagnosis Benign neoplasm of meninges (HCC)- Primary Benign neoplasm of cerebral meninges Dizziness Dizziness and giddiness [facility] Diagnosis Benign neoplasm of meninges (HCC) Benign neoplasm of cerebral meninges [facility] Diagnosis Dermatophytosis of nail- Primary Dystrophic nail Other specified disease of nail Pain around toenail, right foot Pain around toenail, left foot documented in this encounter [facility] HealthcareEvaluation note* Diagnosis Hoarse- Primary Dysphonia Purulent postnasal drainage Primary insomnia Persistent disorder of initiating or maintaining sleep Gastroesophageal reflux disease without esophagitis Esophageal reflux documented in this encounter [facility] HealthcareEvaluation note* Diagnosis Hyperlipidemia, unspecified [...] note* Diagnosis Urinary frequency- Primary Essential hypertension ([facility]) Unspecified essential hypertension Age-related osteoporosis without current pathological fracture ([facility] documented in this encounter [...] depressive disorder, single episode, in full remission ([facility]) Major depressive disorder, 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 Fall, subsequent encounter Gastroesophageal reflux disease without esophagitis Esophageal reflux documented in [facility] encounter [facility]* Diagnosis Hematuria, unspecified type documented in this encounter [facility]* Diagnosis Acute cystitis with hematuria- Primary documented in this encounter [facility]* Diagnosis Mixed hyperlipidemia ([facility]) Mixed hyperlipidemia Anxiety Anxiety state, unspecified documented [...] fracture presence- Primary [facility] Diagnosis Migraine without aura and without status migrainosus, not intractable- Primary Essential tremor Psychophysiological insomnia Persistent disorder of initiating or maintaining sleep [facility]* Diagnosis Osteoporosis, unspecified osteoporosis type, unspecified pathological fracture presence- Primary [facility]* Diagnosis Migraine without aura and without status migrainosus, not intractable- Primary Essential tremor Cervical radiculopathy Brachial neuritis or radiculitis nos Bilateral occipital neuralgia [facility]* Diagnosis Essential hypertension ([facility])- Primary Unspecified essential hypertension documented [facility] encounter [facility]* Diagnosis Urge incontinence- Primary Frequent UTI Urinary tract infection, site not specified [facility] Diagnosis Urge incontinence- Primary Frequent UTI Urinary tract infection, site not specified Osteoporosis, unspecified osteoporosis type, unspecified pathological fracture presence- Primary [facility]* Diagnosis Moderate persistent asthma, unspecified whether complicated ([facility]) documented [facility] encounter [facility]* Diagnosis Intractable migraine with aura without status migrainosus ([facility])- Primary Fall, subsequent encounter Essential hypertension ([facility]) Unspecified essential hypertension documented [facility] encounter [facility]* Diagnosis Urge incontinence- Primary Frequent UTI Urinary tract infection, site not specified Osteoporosis, unspecified osteoporosis type, unspecified pathological fracture presence- Primary [facility] Diagnosis Urge incontinence- Primary Frequent UTI Urinary tract infection, site not specified Osteoporosis, unspecified osteoporosis type, unspecified pathological fracture presence- Primary Hypothyroidism, unspecified type Age-related osteoporosis without current pathological fracture Vitamin D deficiency [facility]* Diagnosis Urge incontinence- [...] kidney Urge incontinence [facility] Diagnosis Primary insomnia Persistent disorder of initiating or maintaining sleep Major depressive disorder, single episode, in full remission Major depressive disorder, 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 documented in this encounter [facility]* Diagnosis Stage 3b chronic kidney disease (CKD) ([facility]) Major depressive disorder, single episode, in full remission Major depressive disorder, 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 Age-related osteoporosis without current pathological fracture Moderate persistent asthma without complication (HCC) Diastolic dysfunction with chronic heart failure (HCC) Chronic idiopathic constipation Unspecified constipation Mild intermittent asthma without complication (HCC) Interstitial pulmonary disease, unspecified (HCC) documented in this encounter [facility] HealthcareEvaluation note* Diagnosis Urge incontinence- Primary Frequent UTI Urinary tract infection, site not specified Kidney stones- Primary Calculus of kidney Urge incontinence Osteoporosis, unspecified osteoporosis type, unspecified pathological fracture presence- Primary [facility] Diagnosis Stage 3b chronic kidney disease (CKD) ([facility]) Major depressive disorder, single episode, in full remission Major depressive disorder, 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 Age-related osteoporosis without current pathological fracture Moderate persistent asthma without complication (HCC) Diastolic dysfunction with chronic heart failure (HCC) Chronic idiopathic constipation Unspecified constipation Mild intermittent asthma without complication (HCC) Interstitial pulmonary disease, unspecified (HCC) Gastroesophageal reflux disease without esophagitis Esophageal reflux documented in this encounter [facility] HealthcareHistory of Present illness Narrative* Abran [...] Health SystemInstructionsNot on file documented [facility] SystemInstructionsNot on file documented in this encounterPro[facility] Health SystemInstructionsNot on file documented in this encounterPro[facility] Health SystemInstructionsNot on file documented in this encounterPro[facility] Health SystemInstructionsNot on file documented in this encounterPro[facility] SystemInstructionsNot on file documented in this encounterPro[facility] SystemInstructionsNot on file documented in this encounterProSelect [facility] SystemInstructionsNot on file documented in this encounterProSelect [facility] SystemReason for referral (narrative)* Consultation (Routine) - Authorized Specialty Diagnoses / Procedures Referred By Contac t Referred To Contact Urology Diagnoses Urinary frequency Procedures [place] OFFICE/OUTPATIENT [facility] 60 MINUTES Bia Cao MD [address] [place] [address] Maria C Kramer MD [address] [place] [address] Referral ID Status Reason Start Date Expiration Date Visits Requested Visits Authorized [id number] Authorized Specialty Services Required 07/10/2024 01/06/2025 1 1 [facility] for visit Narrative* Episode Based Medications (Routine) - Authorized Specialty Diagnoses / Procedures Referred By Violette t Referred To Contact Diagnoses Osteoporosis, unspecified osteoporosis type, unspecified pathological fracture presence Procedures AK ROMOSOZUMAB INJECTION John Johnson MD [address] [facility] [place] [address] Phone: tel: fax: Meggan Hunter [facility] [place] - Medical Oncology [address] [place] [address] Phone: tel: fax: Referral ID Status Reason Start Date Expiration Date V isits Requested Visits Authorized [id number] Authorized 12/06/2024 12/06/2025 12 12 [facility] Summary Purpose Family History No Family History Records FoundNo Family History Records FoundNo Family History Records FoundNo Family History Records FoundNo Family History Records FoundNo Family History Records FoundNo Family History Records FoundNo Family History Records FoundNo Family History Records FoundNo Family History Records Found Advance Directives Documents on File Type Date Recorded 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 07/16/2021 3:45 PM Living Will 07/16/2021 3:40 PM Date Activated Date Inactivated Comments 03/02/2023 4:15 AM 03/03/2023 3:57 PM Date Activated Date Inactivated Comments 07/03/2021 9:57 AM 07/10/2021 6:07 PM Date Activated Date Inactivated Comments 01/04/2018 4:32 PM 01/06/2018 6:44 PM Date Activated Date Inactivated Comments 01/14/2017 8:37 AM 01/15/2017 5:28 PM Documents on File Type Date Recorded 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 07/16/2021 3:45 PM Living Will 07/16/2021 [...] MATERIAL Mandi Hoover MD [address] [place] [address] Imaging [place] [address] Referral ID Status Reason Start Date Expiration Date Visits Requested Visits Authorized [id number] Pending Review Auto-Generat ed Referral 08/28/2024 06/08/2025 1 1 Specialty Diagnoses / Procedures Referred By Contac t Referred To Contact MR IMAGING Diagnoses Benign neoplasm of meninges (HCC) Procedures MRI BRAIN WO/W IVCON MRI BRAIN BRAIN STEM W/O W/CONTRAST MATERIAL Rose Velasquez APRN.ROUTE SALESMAN AND DRIVER [address] [place] [address] [place] [address] [place] [address] Referral ID Status Reason Start Date Expiration Date Visits Requested Visits Authorized [id number] New Request Auto-Generat ed Referral 09/26/2024 10/26/2025 1 1 Referral ID Status Reason Start Date Expiration Date V isits Requested Visits Authorized [id number] Closed Auto-Generate d Referral 08/28/2024 06/08/2025 1 1 Additional Source Comments INFORMATION SOURCE (unrecogn ized section and content) DATE CREATED AUTHOR 05/16/2018 [facility] DATE CREATED AUTHOR AUTHOR'S ORGANIZ ATION 06/21/2019 [facility] DATE CREATED AUTHOR AUTHOR'S ORGANIZ ATION 11/13/2022 [facility] DATE CREATED AUTHOR AUTHOR'S ORGANIZ ATION 12/07/2022 [facility] dical Specialist DATE CREATED AUTHOR AUTHOR'S ORGANIZ ATION 10/08/2024 [facility] DATE CREATED AUTHOR AUTHOR'S ORGANIZ ATION 04/21/2025 [facility] DATE CREATED AUTHOR AUTHOR'S ORGANIZ ATION 06/15/2025 [facility] DATE CREATED AUTHOR AUTHOR'S ORGANIZ ATION 07/12/2025 [facility] dical Specialists EPIC DATE CREATED AUTHOR AUTHOR'S ORGANIZ ATION 07/12/2025 [facility] DATE CREATED AUTHOR AUTHOR'S ORGANIZ ATION 07/22/2025 [facility] Reason for Visit (unrecogniz ed section and content) Reason Comments Injection evenity Specialty Diagnoses / Procedures Referred By Contac t Referred To Contact Diagnoses Osteoporosis, unspecified osteoporosis type, unspecified pathological fracture presence Procedures AK ROMOSOZUMAB INJECTION John Johnson MD [address] [place] [address] Phone: tel: fax: [facility] On[facility] [address] [place] [address] Phone: tel: fax: Referral ID Status Reason Start Date Expiration Date V isits Requested Visits Authorized [id number] Authorized 12/06/2024 12/06/2025 12 12 Reason Comments Outpatient Infusion Evenity Specialty Diagnoses / Procedures Referred By Contac t Referred To Contact Physical Therapy Diagnoses Muscle weakness (generalized) Procedures TREATMENT Bia Cao MD [address] [place] [address] Jonny Salazar, PT [address] [place] [address] Referral ID Status Reason Start Date Expiration Date V isits Requested Visits Authorized [id number] Authorized 12/08/2023 06/05/2024 99 99 Reason Comments Med Refill Reason Comments Received Outside Medical Records Externa l referral to Neurological [facility] triage Nurse Triage Call Appointment Reason Comments Consult Reason Comments New Patient Intracranial Meningi brandon Reason Comments Radiology MRI Specialty Diagnoses / Procedures Referred By Contac t Referred To Contact MR IMAGING Diagnoses Benign neoplasm of meninges (HCC) Procedures MRI BRAIN WO/W IVCON MRI BRAIN BRAIN STEM W/O W/CONTRAST MATERIAL Mandi Hoover MD [address] [place] [id number] Mr Imaging [facility] Referral ID Status Reason Start Date Expiration Date V isits Requested Visits Authorized [id number] Closed Auto-Generate d Referral 08/28/2024 06/08/2025 1 [...] Referred To Contact Otolaryngology Diagnoses Hoarse Procedures AK OFFICE/OUTPATIENT NEW HIGH MDM 60 MINUTES Tae Hardy NP [address] [place] [address] Phone: tel: fax: Katerin Alvarado MD [address] [address] Phone: tel: fax: Referral ID Status Reason Start Date Expiration Date V isits Requested Visits Authorized [id number] Closed Specialty Services Required 12/26/2024 06/24/2025 1 1 Reason Comments Sore Throat Cough Reason Comments Follow-up 1 month follow up Reason Comments Follow-up Reason Comments Follow-up Thy Reason Onset Date Comments outgoing referral 05/08/2025 Reason Comments Injection [facility] Care Teams (unrecognized sec tion and content) Hand Sizer Relationship Specialty Start Date End Date Jacob Viveros PCP - [employer] 11/22/22 Bia Cao MD [address] [place] [address] PCP - General Family Medicine 04/29/23 Hand Sizer Relationship Specialty Start Date End Date Jacob Viveros PCP - [employer] 11/22/22 Bia Cao MD [address] [place] [address] PCP - General Family Medicine 04/29/23 Hand Sizer Relationship Specialty Start Date End Date Jacob Viveros PCP - [employer] 11/22/22 Bia Cao MD [address] [place] [address] PCP - General Family Medicine 04/29/23 Hand Sizer Relationship Specialty Start Date End Date Jacob Viveros PCP - [employer] 11/22/22 Bia Cao MD [address] [place] [address] PCP - General Family Medicine 04/29/23 Hand Sizer Relationship Specialty Start Date End Date Jacob Viveros PCP - [employer] 11/22/22 Bia Cao MD [address] [place] [address] PCP - General Family Medicine 04/29/23 Hand Sizer Relationship Specialty Start Date End Date Jacob Viveros PCP - [employer] 11/22/22 Bia Cao MD [address] [facility] [place] [address] PCP - General Family Medicine 04/29/23 Hand Sizer Relationship Specialty Start Date End Date (Hist), No Pcp PCP - General 11/04/17 Corey Chacon MD [address] [place] [address] NI Referring Team Neurosurgery 03/24/24 Hand Sizer Relationship Specialty Start Date End Date (Hist), No Pcp PCP - General 11/04/17 Corey Chacon MD [address] [place] [address] NI Referring Team Neurosurgery 03/24/24 Hand Sizer Relationship Specialty Start Date End Date (Hist), No Pcp PCP - General 11/04/17 Corey Chacon MD [address] [place] [address] NI Referring Team Neurosurgery 03/24/24 Hand Sizer Relationship Specialty Start Date End Date (Hist), No Pcp PCP - General 11/04/17 Corey Chacon MD NI Referring Team Neurosurgery 03/24/24 Hand Sizer Relationship Specialty Start Date End Date (Hist), No Pcp PCP - General 11/04/17 Corey Chacon MD NI Referring Team Neurosurgery 03/24/24 Hand Sizer Relationship Specialty Start Date End Date (Hist), No Pcp PCP - General 11/04/17 Corey Chacon MD NI Referring Team Neurosurgery 03/24/24 Hand Sizer Relationship Specialty Start Date End Date Jacob Viveros PCP - [employer] 11/22/21 Bia Cao MD [address] [place] [address] PCP - General Family Medicine 04/29/23 Hand Sizer Relationship Specialty Start Date End Date Jacob Viveros PCP - [employer] 11/22/21 Bia Cao MD [address] [place] [address] PCP - General Family Medicine 04/29/23 Hand Sizer Relationship Specialty Start Date End Date Jacbo Viveros PCP - [employer] 11/22/21 Bia Cao MD [address] [place] [address] PCP - General Family Medicine 04/29/23 Hand Sizer Relationship Specialty Start Date End Date Jacob Viveros PCP - [employer] 11/22/21 Bia Cao MD [address] [place] [address] PCP - General Family Medicine 04/29/23 Hand Sizer Relationship Specialty Start Date End Date Jacob Viveros PCP - [employer] 11/22/21 Bia Cao MD [address] [place] [address] PCP - General Family Medicine 04/29/23 Hand Sizer Relationship Specialty Start Date End Date Jacob Viveros PCP - [employer] 11/22/21 Bia Cao MD [address] [place] [address] PCP - General Family Medicine 04/29/23 Hand Sizer Relationship Specialty Start Date End Date Jacob Viveros PCP - [employer] 11/22/21 Bia Cao MD [address] [place] [address] PCP - General Family Medicine 04/29/23 Hand Sizer Relationship Specialty Start Date End Date Bernadette Viverosnathan Anny PCP - [employer] 11/22/21 Bia Cao MD [address] [place] [address] PCP - General Family Medicine 04/29/23 Hand Sizer Relationship Specialty Start Date End Date Jacob Viveros PCP - [employer] 11/22/21 Bia Cao MD [address] [place] [address] PCP - General Family Medicine 04/29/23 Hand Sizer Relationship Specialty Start Date End Date Bia Cao MD PCP - General Family Medicine 02/05/23 Hand Sizer Relationship Specialty Start Date End Date Bia Cao MD PCP - General Family Medicine 02/05/23 Hand Sizer Relationship Specialty Start Date End Date Bia Cao MD [address] [place] [address] PCP - General Family Medicine 04/29/23 Bia Cao MD [address] [facility] [place] [address] PCP - [employer] 11/22/21 Hand Sizer Relationship Specialty Start Date End Date Bia Cao MD [address] [facility] [address] PCP - General Family Medicine 04/29/23 Bia Cao MD [address] [facility] [address] PCP - [employer] 11/22/21 Hand Sizer Relationship Specialty Start Date End Date Bia Cao MD [address] [facility] [address] PCP - General Family Medicine 04/29/23 Bia Cao MD [address] [facility] [place] [address] PCP - [employer] 11/22/21 Hand Sizer Relationship Specialty Start Date End Date Bia Cao MD [address] [facility] [place] [address] PCP - General Family Medicine 04/29/23 Bia Cao MD [address] [facility] [address] PCP - [employer] 11/22/21 Hand Sizer Relationship Specialty Start Date End Date Bia Cao MD PCP - General Family Medicine 02/05/23 Hand Sizer Relationship Specialty Start Date End Date Bia Cao MD PCP - General Family Medicine 02/05/23 Hand Sizer Relationship Specialty Start Date End Date Bia Cao MD [address] [place] [address] PCP - General Family Medicine 04/29/23 Bia Cao MD [address] [place] [address] PCP - [employer] 11/22/21 Hand Sizer Relationship Specialty Start Date End Date Bia Cao MD [address] [place] [address] PCP - General Family Medicine 04/29/23 Bia Cao MD [address] [place] [address] PCP - [employer] 11/22/21 Hand Sizer Relationship Specialty Start Date End Date Bia Cao MD [address] [place] [address] PCP - General Family Medicine 04/29/23 Bia Cao MD [address] [place] [address] PCP - [employer] 11/22/21 Hand Sizer Relationship Specialty Start Date End Date Bia Cao MD [address] [facility] [address] PCP - General Family Medicine 04/29/23 Bia Cao MD [address] [facility] [address] PCP - [employer] 11/22/21 Hand Sizer Relationship Specialty Start Date End Date Bia Cao MD [address] [facility] [address] PCP - General Family Medicine 04/29/23 Bia Cao MD [address] [facility] [address] PCP - [employer] 11/22/21 Hand Sizer Relationship Specialty Start Date End Date Bia Cao MD [address] [facility] [address] PCP - General Family Medicine 04/29/23 Bia Cao MD [address] [facility] [address] PCP - [employer] 11/22/21 Hand Sizer Relationship Specialty Start Date End Date Bia Cao MD [address] [facility] [address] PCP - General Family Medicine 04/29/23 Bia Cao MD [address] [facility] [address] PCP - [employer] 11/22/21 Hand Sizer Relationship Specialty Start Date End Date Bia Cao MD [address] [facility] [address] PCP - General Family Medicine 04/29/23 Bia Cao MD [address] [place] [address] PCP - [employer] 11/22/21 Hand Sizer Relationship Specialty Start Date End Date Bia Cao MD [address] [place] [address] PCP - General Family Medicine 04/29/23 Bia Cao MD [address] [place] [address] PCP - [employer] 11/22/21 Hand Sizer Relationship Specialty Start Date End Date Bia Cao MD [address] [place] [address] PCP - General Family Medicine 04/29/23 Bia Cao MD [address] [facility] [address] PCP - [employer] 11/22/21 Hand Sizer Relationship Specialty Start Date End Date Bia Cao MD PCP - General Family Medicine 02/05/23 Hand Sizer Relationship Specialty Start Date End Date Bia Cao MD PCP - General Family Medicine 02/05/23 Hand Sizer Relationship Specialty Start Date End Date Bia Cao MD [address] [facility] [address] PCP - General Family Medicine 04/29/23 Bia Cao MD [address] [place] [address] PCP - [employer] 11/22/21 Hand Sizer Relationship Specialty Start Date End Date Bia Cao MD PCP - General Family Medicine 02/05/23 Hand Sizer Relationship Specialty Start Date End Date Bia Cao MD PCP - General Family Medicine 02/05/23 Hand Sizer Relationship Specialty Start Date End Date Bia Cao MD PCP - General Family Medicine 02/05/23 Hand Sizer Relationship Specialty Start Date End Date Bia Cao MD PCP - General Family Medicine 02/05/23 Hand Sizer Relationship Specialty Start Date End Date Bia Cao MD [address] [place] [address] PCP - General Family Medicine 04/29/23 Bia Cao MD [address] [place] [address] PCP - [employer] 11/22/21 Hand Sizer Relationship Specialty Start Date End Date Bia Cao MD PCP - General Family Medicine 02/05/23 Hand Sizer Relationship Specialty Start Date End Date Bia Cao MD PCP - General Family Medicine 02/05/23 Hand Sizer Relationship Specialty Start Date End Date Bia Cao MD PCP - General Family Medicine 02/05/23 Hand Sizer Relationship Specialty Start Date End Date Bia Cao MD PCP - General Family Medicine 02/05/23 Hand Sizer Relationship Specialty Start Date End Date Bia Cao MD [address] [facility] [address] PCP - General Family Medicine 04/29/23 Bia Cao MD [address] [facility] [place] [address] PCP - [employer] 11/22/21 Hand Sizer Relationship Specialty Start Date End Date Bia Cao MD [address] [facility] [address] PCP - General Family Medicine 04/29/23 Bia Cao MD [address] [facility] [address] PCP - [employer] 11/22/21 Hand Sizer Relationship Specialty Start Date End Date Bia Cao MD [address] [facility] [place] [address] PCP - General Family Medicine 04/29/23 Bia Cao MD [address] [facility] [place] [address] PCP - [employer] 11/22/21 Hand Sizer Relationship Specialty Start Date End Date Bia Cao MD PCP - General Family Medicine 02/05/23 Hand Sizer Relationship Specialty Start Date End Date Bia Cao MD [address] [place] [address] PCP - General Family Medicine 04/29/23 Bia Cao MD [address] [place] [address] PCP - [employer] 11/22/21 Source Comments (unrecognize d section and content) In the event this informatio n is protected by the Federal Confidentiality of Alcohol and Drug Abuse Patient Records regulations: The Federal rules restrict any use of the information to criminally investigate or prosecute any alcohol or drug abuse patient.[place]ervilleIn the event this information is protected by the Federal Confidentiality of Alcohol and Drug Abuse Patient Records regulations: The Federal rules restrict any use of the information to criminally investigate or prosecute any alcohol or drug abuse patient.[place]ervilleIn the event this information is protected by the Federal Confidentiality of Alcohol and Drug Abuse Patient Records regulations: The Federal rules restrict any use of the information to criminally investigate or prosecute any alcohol or drug abuse patient.[place]ervilleIn the event this information is protected by the Federal Confidentiality of Alcohol and Drug Abuse Patient Records regulations: The Federal rules restrict any use of the information to criminally investigate or prosecute any alcohol or drug abuse patient.[place]ervilleIn the event this information is protected by the Federal Confidentiality of Alcohol and Drug Abuse Patient Records regulations: The Federal rules restrict any use of the information to criminally investigate or prosecute any alcohol or drug abuse patient.[place]ervilleIn the event this information is protected by the Federal Confidentiality of Alcohol and Drug Abuse Patient Records regulations: The Federal rules restrict any use of the information to criminally investigate or prosecute any alcohol or drug abuse patient.[place] FOR RECORDS PERTAINING TO PATIENTS WHO ARE [...] ON THE PRIMARY CLINICAL RECORDS. [facility] [employer] [facility]. provides no warranty or guarantee of the accuracy or completeness of information in this document.
--- NOTE | 2025-08-08 11:18 | PM.CN ---
Consult Note: HPI Data of Consult Patient: known to practice within the last 3 years Consult date: 08/08/25 Requesting Physician: Nisa Galarza NP Primary Care Provider: TRUE DAVIS Consult Narrative Reason for consult: f/u Narrative: Angela Ruth a 80 year old female presents for evaluation of chronic back pain unresponsive to greater than 6 weeks of PT/HEP, ice, heat, tylenol and NSAIDs. pain secondary to lumbar DDD, lumbar spondylosis, sacroilitis. Hx of lumbar surgery. utilizing Tylenol, aleve, butrans and methocarbamol with benefit without side effects. denies recent falls. Pain today 5/10 aching in middle back. pain increases to 9/10 with standing, walking, twisting, showering, sleeping. denies falls since last visit. prior thoracic xray shows degenerative changes. recently underwent bilateral T8-9 T9-10 MBB #1 and #2 with significant pain while anesthetized, preop pain up to 8/10 post op pain 0/10 with vacuuming, driving, standing, walking. cc:: CC: Nisa Galarza NP [facility] Medical History TMJ (dislocation of temporomandibular joint) ?S03.00XA - Dislocation of jaw, unspecified side, initial encounter (ICD-10) Neck pain ?M54.2 - Cervicalgia (ICD-10) Back pain ?M54.9 - Dorsalgia, unspecified (ICD-10) Osteoarthritis ?M19.90 - Unspecified osteoarthritis, unspecified site (ICD-10) H/O psychiatric care ?Z92.89 - Personal history of other medical treatment (ICD-10) Heartburn ?R12 - Heartburn (ICD-10) Acid reflux ?K21.9 - Gastro-esophageal reflux disease without esophagitis (ICD-10) Hypothyroid ?E03.9 - Hypothyroidism, unspecified (ICD-10) Kidney stones ?N20.0 - Calculus of kidney (ICD-10) Asthma ?J45.909 - Unspecified asthma, uncomplicated (ICD-10) High cholesterol ?E78.00 - Pure hypercholesterolemia, unspecified (ICD-10) Hypertension ?I10 - Essential (primary) hypertension (ICD-10) Surgical History H/O shoulder surgery ?Z98.890 - Other specified postprocedural states (ICD-10) H/O excision of hemangioma ?Z98.890 - Other specified postprocedural states (ICD-10) ?Z86.018 - Personal history of other benign neoplasm (ICD-10) H/O basal cell carcinoma excision ?Z98.890 - Other specified postprocedural states (ICD-10) ?Z85.828 - Personal history of other malignant neoplasm of skin (ICD-10) H/O lumbosacral spine surgery ?Z98.890 - Other specified postprocedural states (ICD-10) H/O foot surgery ?Z98.890 - Other specified postprocedural states (ICD-10) H/O hand surgery ?Z98.890 - Other specified postprocedural states (ICD-10) H/O wrist surgery ?Z98.890 - Other specified postprocedural states (ICD-10) History of cholecystectomy ?Z90.49 - Acquired absence of other specified parts of digestive tract (ICD-10) H/O breast biopsy ?Z98.890 - Other specified postprocedural states (ICD-10) History of appendectomy ?Z90.49 - Acquired absence of other specified parts of digestive tract (ICD-10) History of tonsillectomy and adenoidectomy ?Z90.89 - Acquired absence of other organs (ICD-10) Meds Home Medications and Allergies Home Medications ?Medication ?Instructions ?Recorded ?Confirmed ?Type acetaminophen 650 mg 1,300 mg PO Q8H PRN pain 07/07/23 08/06/25 History tablet,extended release (Arthritis Pain Relief (acetaminophen) ER) albuterol 90 mcg/actuation aerosol 90 mcg inhalation .every 4 hours 07/07/23 08/06/25 History inhaler PRN shortness of breath or wheezing ascorbic acid (vitamin C) 500 mg 500 mg PO BID 07/07/23 08/06/25 History tablet,extended release (C Complex) aspirin 81 mg tablet,delayed 81 mg PO DAILY 07/07/23 08/06/25 History release (Adult Aspirin Regimen) atorvastatin 40 mg tablet 40 mg PO DAILY 07/07/23 08/06/25 History calcium carbonate (Calcium 600) 600 mg PO DAILY 07/07/23 08/06/25 History carvedilol 25 mg tablet 25 mg PO BID 07/07/23 08/06/25 History cholecalciferol (vitamin D3) 50 200 mcg PO DAILY 07/07/23 08/06/25 History mcg (2,000 unit) tablet (Vitamin D3) escitalopram oxalate 20 mg tablet 20 mg PO DAILY 07/07/23 08/06/25 History fenofibrate 160 mg tablet 160 mg PO DAILY 07/07/23 08/06/25 History fexofenadine 180 mg tablet 180 mg PO DAILY 07/07/23 08/06/25 History hydralazine 100 mg tablet 100 mg PO TID 07/07/23 08/06/25 History levothyroxine 150 mcg capsule 150 mcg PO DAILY 07/07/23 08/06/25 History lisinopril 20 1 tab PO DAILY 07/07/23 08/06/25 History mg-hydrochlorothiazide 12.5 mg tablet magnesium 250 mg tablet 250 mg PO DAILY 07/07/23 08/06/25 History vhfkykyc-ymy-gcwlr acid 0.4 1 tab PO DAILY 07/07/23 08/06/25 History mg-lycopene 300 mcg-lutein 250 mcg tablet (Centrum Silver) omeprazole 40 mg capsule,delayed 40 mg PO DAILY 07/07/23 08/06/25 History release oxybutynin chloride 10 mg 10 mg PO DAILY 07/07/23 08/06/25 History tablet,extended release 24 hr methocarbamol 500 mg tablet See Rx Instructions .Route 04/04/25 08/06/25 Rx .COMPLEX #120 tabs romosozumab-aqqg 210 mg/2.34 mg subcut 04/23/25 History mL(105 mg/1.17 mL x2)subcutaneous syringe (Evenity) buprenorphine 7.5 mcg/hour weekly 1 patch transdermal QWEEK #4 ea 06/28/25 08/06/25 Rx transdermal patch (Butrans) Allergies Allergy/AdvReac Type Severity Reaction Status Date / Time adhesive tape Allergy unknown Verified 08/06/25 09:17 Influenza Virus Vaccines Allergy unknown Verified 08/06/25 09:17 lincomycin (From Lincocin) Allergy Unknown Verified 08/06/25 09:17 Penicillins Allergy Unknown Verified 08/06/25 09:17 Exam Constitutional Documenting provider has reviewed patient's vital signs: yes Common normals: no apparent distress, oriented x3, healthy appearing, alert and well nourished General appearance: cooperative HENMT Common normals: normocephalic, hearing grossly normal bilaterally and moist oral mucous membranes Head and scalp: normocephalic Eye Common normals: PERRL Pupil: PERRL Neck & C-Spine Common normals: full ROM General: normal visual inspection Other: negative facet loading, negative spurlings, strength 5/5 in BUE Chest Common normals: inspection of chest normal Respiratory Common normals: normal respiratory effort, no retractions and no use of accessory muscles Back & Pelvis Thoracic spine/upper back: ROM limited, pain with ROM and thoracic spinal tenderness T-spine tenderness location: T7, T8, T9 and T10 Lumbar spine/lower back: ROM limited, pain with ROM and straight leg raise negative bilaterally Sacroiliac joints: SI joints normal Other: bilaterally negative eri(patricks), gaenslens, thigh thrust, compression test facet pain noted to T7-10 Extremity Other: no pain with internal and external log roll of right hip Neuro Common normals: oriented x3 Sensorium/orientation: alert Gait (neuro): assistive device used cane Motor exam: no movement abnormalities noted Psych Common normals: mental status grossly normal, thought process normal, cooperative, affect normal, speech normal and activity/motor behavior normal Speech: normal speech Thought process: normal thought process Results Additional Findings Additional findings: If on a controlled substance or opioids, I have checked an [place] report on this patient and there are no aberrancies noted in the prescribing history.??If on a controlled substance or opioid a drug screen was completed and reviewed within the last year, and if there has not been a drug screen completed we ordered one today to monitor higher risk, state monitored pain medication use. As part of providing excellent, safe, comprehensive care, the following was completed at our patient's visit: 1. A medication reconciliation and review to ensure accurate knowledge of current/active medications, including asking our patients to inform us about any anov-ugx-cekdpqr medications or herbal remedies/nutritional supplements/alternative remedies. 2. A review to specifically ensure our patients have had annual screening for screening for depression, screening for tobacco use, and screening for unhealthy alcohol use. For concerning screenings had a discussion with the patient, provided patient education, and recommended follow-up with primary care provider when appropriate. If patient noted with a risk of falling, they received education on strength, gait, and balance training to prevent future risk of falling. Portions of this note may have been carried over from the previous visit and updated as appropriate. Please note this office utilizes paper charting in addition to the electronic medical record. A list of current medications, vitals, and PMH is available there as the clinical staff outside of myself do not have access to [employer] charting during the clinic day operations. As part of providing quality comprehensive care the current medications, vitals, and PMH were reviewed in the paper chart. Assessment and Plan Assessment and Plan (1) Thoracic spondylosis: Assessment and Plan: The patient has had over 3 months of moderate to severe middle back pain with functional impairment and inadequate response to conservative care including NSAIDS (unless there are contraindication such as concurrent blood thinners), multiple oral or topical pain medications, and home exercise program/physical therapy.? Patient has completed >6 weeks of guided home exercise program and/or formal physical therapy program without relief of their symptoms.? The Oswestry Disability Index was completed, and the patient scored a 44%.? The patient noted the following:?? moderate to severe pain impacting ADLs, sitting, standing, walking, sleeping, social life, travel We discussed the risks and benefits of the procedure with the patient, and we are NOT planning on using sedation as outlined in the guidelines from Medicare unless there is a documented reason that sedation would be strongly recommended.??The procedure will be completed with fluoroscopic guidance.? (2) Sacroiliitis: (3) Chronic prescription opiate use: Assessment and Plan: I feel these medications are improving the patient's quality of life and allow them to tolerate activities of daily living as well as participate in recreational activity.? The patient does not report intolerable side effects. The patient is NOT opioid naive and non-pharmacologic and non-opioid treatment has failed to significantly relieve the patient's pain and improve functionality. The patient has a diagnosis that is related to a somatic or visceral pain etiology. ? ?? I reviewed with the patient the potential risks and side effects with the use of? opioid medications including but not limited to respiratory depression,? sedation, and even . Within the last 12 months I have verified the patient has access to naloxone should? these effects occur. The patient was advised to let? their family know they had Naloxone in case they would need to administer? the medication. I advised the patient to avoid the use of any other? sedation substances including alcohol, THC, and benzodiazepines while? taking opioid medications due to the risk of compounding side effects and? detrimental outcomes. within the last 12 months I have reviewed the [employer], pain treatment agreement and urine drug screen.? ?? A drug screen was completed within the last year, and no aberrancies were noted regarding their use of controlled substances. The patient understands they are subject to the terms and conditions of the pain contract that they have signed. ? ?? I have checked an [place] report on this patient today and there are no aberrancies noted in the prescribing history.? Plan right then left T8,9 T9,10 facet RFA for axial facet mediated back pain continue current medications continue HEP as tolerated f/u 1 month after RFAs complete
== END 2025-08-08 10:54 | disposition home or self-care (01) ==
LOC: PM 10:53
PROVIDERS: PCP Family Medicine; Visit Provider Nurse Practitioner
DX: M47.814 Spondylosis without myelopathy or radiculopathy, thoracic region (principal); M46.1 Sacroiliitis, not elsewhere classified; Z79.891 Long term (current) use of opiate analgesic
CPT/HCPCS: G0463

== ENCOUNTER 2025-09-03 11:13 | Day surgery (SDC) | payer MEDICARE, SELFPAY ==
[2025-09-03 11:21] VITALS: BP 124/61; PULSE 72; TEMP 36.3; O2SAT 98
--- OUTSIDE RECORDS SUMMARY | 2025-09-03 11:23 | XMS_ITS | CCD ---
Author Organization [facility] Team Providers Care Mortician Helper Name Role Phone LENNY PEDRAZA Unavailable Unavailable AUDREY HORN Unavailable Unavailable AUDREY HORN Unavailable Unavailable LENNY PEDRAZA Unavailable Unavailable NASH, BIA Mccormick Primary Care Unavailable NASH, BIA Mccormick Primary Care Unavailable Jacob Viveros Unavailable Unavailable Nash GARCIA, Bia Anny Primary Care Provider (Hist), No Pcp Primary Care Provider Unavailabl e Oswaldo GARCIA, Corey Castillo Unavailable [phone] Corey Chacon MD Unavailable ROSE VELASQUEZ Attending Unavailable HOOVERMANDI Referring Unavailable HOOVERMANDI Attending Unavailable HOOVERMANDI RUIZ Referring Unavailable Jacob Viveros Unavailable Unavailable Nash GARCIA, Bia Mccormick Primary Care Provider Nash GARCIA, Bia Anny Unavailable Nsah GARCIA, Bia Anny Primary Care Provider [phone] Nash GARICA, Bia Mccormick Primary Care Provider JOHN JOHNSON Attending Unavailable NASH, BIA F Referring Unavailable NASH, BIA Anny Primary Care Unavailable YOANNA DORSEY Attending Unavailable NASH, BIA F Referring Unavailable NASH, BIA Anny Primary Care Unavailable RANDALL JAUREGUI I Attending [...] Unavailable NASH, BIA F Primary Care Unavailable ELLIOTT, TISHA Attending Unavailable NASH, BIA F Referring Unavailable [...] Unavailable NASH, BIA F Primary Care Unavailable BIA CAO Referring Unavailable BIA CAO Primary Care Unavailable KEANU, JOHN Referring Unavailable BIA CAO Primary Care Unavailable BIA CAO Referring Unavailable BIA CAO Primary Care Unavailable KEANU, JOHN Referring Unavailable BIA CAO Primary Care Unavailable BIA CAO Referring Unavailable BIA CAO Primary Care Unavailable Allergies Allergy Classification Reported Allergen(s) Allergy Type Date of Onset Reaction(s) Facility Amoxicillin / Clavulanate (1 source) Amoxicillin / Clavulanate Drug Allergy 08-14-20 11 Rash [facility] Aspartame (1 source) Aspartame Drug Allergy 02-13-20 17 Other: See Comments [facility] Clavulanate (1 source) Clavulanate Drug Allergy 02-13-20 17 [facility] egg white (chicken) allergenic extract (1 source) egg white (chicken) allergenic extract Drug Allergy 08-14-20 11 Swelling [facility] Lincomycin (1 source) Lincomycin Drug Allergy 11-04-20 16 [facility] NSAIDs (1 source) oxaprozin Drug Allergy 11-04-20 16 [facility] Penicillins (antibiotic) (1 source) Penicillins Drug Allergy 11-04-20 16 [facility] (20 sources) Aspartame; Translations: [ASPARTAME] Drug Allergy 02-13-20 17 Unknown [facility] (20 sources) Clavulanate; Translations: [CLAVULANIC ACID] Drug Allergy 02-13-20 17 Rash [facility] (20 sources) Indomethacin; Translations: [INDOMETHACIN] Drug Allergy 05-02-20 21 Unknown, Hypotension [facility] (20 sources) Influenza Vaccines Drug Allergy 06-04-20 23 Rash [facility] (20 sources) Lincomycin; Translations: [LINCOMYCIN] Drug Allergy 08-14-20 11 Anaphylaxis, Rash [facility] (20 sources) Lincomycin Drug Allergy 12-01-19 22 Unknown [facility] (20 sources) Penicillins; Translations: [PENICILLINS] Drug Allergy 11-04-20 16 [facility] (20 sources) Sulfamethoxazole / Trimethoprim; Translations: [SULFAMETHOXAZOLE-T RIMETHOPRIM] Drug Allergy 10-22-20 23 Hives [facility] (20 sources) Sulfonamides (Antibiotic) Drug Intolerance 11-11-20 22 Hives [facility] (20 sources) Amoxicillin-Pot Clavulanate; Translations: [AMOXICILLIN-POT CLAVULANATE] Drug Allergy 08-14-20 11 Rash [facility] Work Phone: (20 sources) Clemizole; Translations: [CLEMIZOLE] Propensity to adverse reactions 02-13-20 17 Rash [facility] (6 sources) Eggs Or Egg-Derived Products Drug Allergy 08-14-20 11 Swelling, Unknown [facility] (20 sources) Other; Translations: [OTHER] Propensity to adverse reactions 02-13-20 17 Swelling, Other (See Comments) [facility] Work Phone: (20 sources) Poultry Meal Propensity to adverse reactions 03-02-20 23 [facility] (20 sources) Wound Dressing Adhesive Drug Allergy 06-04-20 23 Rash [facility] (20 sources) Adhesive agent; Translations: [ADHESIVE] Drug Allergy 11-04-20 16 Other: See Comments [facility] Work Phone: (20 sources) Aspartame Drug Allergy 02-13-20 17 Other: See Comments, Other (See Comments) [facility] (20 sources) Clindamycin; Translations: [LINCOSAMIDES] Drug Allergy 02-13-20 17 Anaphylaxis [facility] (6 sources) egg white (chicken) allergenic extract; Translations: [EGG WHITE] Drug Allergy 08-14-20 11 Swelling [facility] (20 sources) oxaprozin; Translations: [OXAPROZIN] Drug Allergy 11-04-20 16 Rash [facility] (11 sources) Penicillins Drug Allergy 11-04-20 16 Rash [facility] (20 sources) Influenza Virus Vaccines; Translations: [INFLUENZA VIRUS VACCINES] Drug Allergy 02-13-20 17 Swelling [facility] (20 sources) Egg-Derived Products Drug Allergy 08-14-20 11 Swelling, Unknown [facility] (20 sources) egg shell membrane; Translations: [EGGSHELL MEMBRANE] Propensity to adverse reactions to drug 11-04-20 16 [facility] (11 sources) Penicillins Propensity to adverse reactions to drug 11-04-20 16 [facility] (14 sources) [id number] Antimigraine Agents; Translations: [[id number] ANTIMIGRAINE AGENTS] Propensity to adverse reactions to drug 02-20-20 25 [facility] (3 sources) chicken allergenic extract; Translations: [POULTRY] Drug Allergy 03-02-20 23 [facility] (3 sources) Sulfonamides (Antibiotic); Translations: [SULFA (SULFONAMIDE ANTIBIOTICS)] Propensity to adverse reactions to drug (disorder) 11-11-20 22 [facility] (3 sources) Adhesive agent Propensity to adverse reactions to drug 11-04-20 16 [facility] Current Medications Medication Drug Class(es) [...] mg / caffeine 65 mg oral tablet (20 sources) Platelet Aggregation Inhibitor, Nonsteroidal Anti-inflammatory Drug, Central Nervous System Stimulant, Methylxanthine take 1 tablet by mouth every six hours as needed for headache rtewalw-clhyotsioclwb-jmaawwdl (EXCEDRIN MIGRAINE) 250-250-65 mg per tablet Take 1 tablet by mouth every 6 (six) hours as needed for headaches. Active acetaminophen 325 mg / dichloralphenazone 100 mg / isometheptene 65 mg oral capsule (6 sources) take 1 capsule by mouth every six hours as needed acetaminophen-dichloralphenazone -isometheptene (MIDRIN) 65-100-325 mg per capsule 1 capsule four times daily as needed. Active [id number] 200 actuat albuterol 0.09 mg/actuat metered dose inhaler (20 sources) beta2-Adrenergic Agonist St ar t: En d: take 2 puff(s) by inhalation every four [...] End: 08-08-2025 take 1 tablet by mouth once daily amitriptyline (ELAVIL) 50 mg tablet Indications: Migraine without aura and without status migrainosus, not intractable , Psychophysiological insomnia Take 1 tablet (50 mg total) by mouth nightly. 90 tablet 3 02/12/2025 Active take 1 tablet by margo th once daily at bedtime amitriptyline (ELAVIL) 100 mg tablet Ronaldo e 100 mg by mouth daily at bedtime. Active ascorbic acid 500 mg oral tablet (20 sources) Vitamin C take 2 tablets by mo uth in the morning ascorbic acid (VITAMIN C) 500 mg tablet Take 2 tablets (1,000 mg total) by mouth in the morning. Active Ascorbic Acid (v itamin C) 1000 MG tablet 1 (one) time each day at the same time. Active aspirin 81 mg delayed release oral tablet (20 sources) Platelet Aggregation Inhibitor, Nonsteroidal Anti-inflammatory Drug take 1 tablet by mouth in the morning aspirin 81 mg Take 1 tablet (81 mg total) by mouth in the morning. Active atorvastatin 40 mg oral tablet (20 sources) HMG-CoA Reductase Inhibitor Start: 2016 End: 2024 take 1 tablet by mouth in the morning atorvastatin (LIPITOR) 40 mg tablet Take 1 tablet (40 mg total) by mouth in the morning. 03/15/2022 Active azithromycin 250 mg oral tablet (2 [...] unt oral tablet (20 sources) Vitamin D take 1 tablet by [...] before bedtime. 180 tablet 3 12/04/2022 Active Start: 01-24-2018 take 1 tablet by [...] ora l tablet (20 sources) Vitamin D cholecalciferol, vitamin D3, (VITAMIN D3) 1,000 units tablet Indications: vitamin D deficiency 1 tablet (1,000 Units total) before breakfast Indications: low vitamin D levels. Active cholecalciferol (Vitamin D-3) 25 MCG (1000 UT) tablet 1,000 Units in the morning. Take before meals. Active ciprofloxacin 500 mg oral tablet (6 [...] Peroxisome Proliferator Receptor alpha Agonist Start: End: 12-16-2 024 take 1 tablet by mouth in the [...] WITH MEALS. 60 tablet 2 08/24/2024 Active fexofenadine hydrochloride 180 mg oral tablet (20 sources) Histamine-1 Receptor Antagonist take 1 tablet by mouth once daily at breakfast fexofenadine (ALLY) 180 mg tablet Take 1 tablet (180 mg total) by mouth daily with breakfast. Active fluticasone propionate 0.05 mg/actuat metered dose [...] replace cap.. 16 g 2 08/23/2023 Active 150 ml glucose 50 mg/ml injection (1 source) Start: 08-17-2025 take 25 mL intravenously every hour as needed 25 mL/hr, intravenous, Continuous PRN, When mainline IV needed., Starting on Wed08/17/25 at 1257, Match IVF to base solution of product being administered to ensure compatibility. hydrALAZINE hydrochloride 100 mg oral tablet (20 sources) Arteriolar Vasodilator Start: 07-26-2023 End: 02-19-2026 hydrALAZINE (APRESOLINE) 100 mg tablet Indications: Essential hypertension Take one twice a day may take an additional 50mg daily if Systolic BP is greater than 170 60 tablet 11 02/11/2024 Active hydrALAZINE (Apr esoline) 50 MG tablet [...] 05/10/2024 Active L.acidoph/B.animalis/B.longu m (FLORAJEN DIGESTION ORAL) (20 sources) take 1 tablet by mouth in the morning L.acidoph/B.animalis/B.longum (FLORAJEN DIGESTION ORAL) Take 1 tablet by mouth in the morning. Active lactobacillus acidophilus 16 mg oral capsule (20 sources) Lactobacillus (F lorajuanjo Women) capsule as directed Orally Active levothyroxine sodium 0.15 mg oral tablet (20 sources) l-Th yrox ine Star t: 01-11 End: 03-23 25 levothyroxine (SYNTHROID, LEVOTHROID) 150 MCG tablet Indications: Hypothyroidism, unspecified type 6 days a week 90 tablet 1 04/18/2025 Active Magnesium (20 sources) take 2 tablets [...] (20 sources) Muscle Relaxant Start: 04-19-20 24 methocarbamoL (ROBAXIN) 500 mg tablet Take 2 tablets (1,000 mg total) by mouth. 04/19/2024 Active metoclopramide 10 mg oral tablet (6 sources) Dopamine-2 Receptor Antagonist take 1 tablet by mouth every six hours as needed metoclopramide HCl (REGLAN) 10 mg tablet Take 10 mg by mouth every 6 hours as needed. Active 24 hr mirabegron 50 mg extended release oral tablet (19 sources) beta3-Adrenergic Agonist Start: 12-19-19 take 1 [...] capsule 3 11/29/2023 Active Start: 12-02-2016 omeprazole (ID ILOSEC) 20 mg capsule 20 mg once [...] by mouth. 11/21/2020 Active polyethylene glycol 3350 98758 mg powder for oral solution (3 sources) [...] 5 days 5 tablet 08/14/2024 08/19/2024 Active 1000 ml sodium chloride 9 mg/ml injection (1 source) Start: 08-17-2025 take 25 mL intravenously every hour as needed 25 mL/hr, intravenous, Continuous PRN, When mainline IV needed., Starting on Wed08/17/25 at 1257, Match IVF to base solution of product being administered to ensure compatibility. therapeutic multivitamin (THERA VITAMIN) tablet (5 sources) therapeutic multivitamin (THERA VITAMIN) tablet Take 1 tablet by mouth. Active therapeutic mult ivitamin (THERA VITAMIN) tablet Take 1 tablet by mouth. 0 Active therapeutic multivitamin (THERAGRAN) tablet (20 sources) take 1 tablet by mouth once [...] (6 sources) Calcium Channel To Start: 12-27-19 verapamil SR (CALAN SR, ISOPTIN SR) 120 mg CR tablet 1 tablet three times daily. 12/27/2017 Active zafirlukast 20 mg oral tablet (20 sources) Leukotriene Receptor Antagonist Start: 01-07-20 18 End: 03-22-20 take 1 tablet by mouth in the [...] 07/14/2024 07/21/2024 Active romosozumab (20 sources) Start: 08-17-2025 End: 08-17-2025 210 mg, subcutaneous, Once, On Wed08/17/25 at 1300, For 1 dose, Bring to room temp for at least 30min in original container. Give sub-Q into abdomen, thigh, or outer area of upper arm. Give two consecutive SubQ injections of 105 mg each for a total dose of 210 mg. Rotate injection sites. Start: 07-20-2025 End: 07-20-2025 210 mg, subcutaneous, [...] Onset: 0 06-04-2023 Chronic Headache; including migraine (20 sources) Migraine; Translations: [Migraine, unspecified, not intractable, without status migrainosus] Onset: 9 Resolved: 3 10-24-2023 Chronic Influenza (2 sources) Influenza due to [...] [Tinea unguium] 10-30-2024 Episodic Nausea and vomiting (20 sources) Postoperative nausea and vomiting; Translations: [Nausea [...] 05-23-2021 Chronic Other and ill-defined heart disease (20 sources) Left ventricular hypertrophy; Translations: [Cardiomegaly] Onset: [...] 4 02-15-2024 Chronic Other nervous system disorders (20 sources) Chronic pain syndrome; Translations: [Chronic pain syndrome] Onset: 8 2018 Chronic Other nervous system disorders (20 sources) Carpal tunnel syndrome; Translations: [Carpal tunnel [...] te Episodic/Chronic Acute and unspecified renal failure (20 sources) Acute renal failure syndrome; Translations: [Acute kidney failure, unspecified] Onset: 03-02-2023 03-02-2023 Episodic Acute cerebrovascular disease (20 sources) Hematoma of subdural space of neuraxis; [...] Dysuria; Translations: [Dysuria] Onset: 08-29-2024 07-10-2024 Episodic Malaise and fatigue (20 sources) Asthenia; Translations: [Weakness] Onset: 11-04-2016 12-23-2023 Episodic Mood disorders (20 sources) Mood disorders Onset: 12-06-2023 Resolved: 02-12-2025 12-06-2023 Other circulatory disease (20 sources) Low blood pressure; Translations: [Hypotension, unspecified] [...] 08-14-2011 05-04-2024 Episodic Other connective tissue disease (20 sources) Muscle spasm of cervical muscle of neck; Translations: [Other muscle spasm] Onset: 05-05-2019 05-05-2019 Episodic Other connective tissue disease (20 sources) Nocturnal muscle spasm ; Translations: [Other [...] 02-15-2024 02-15-2024 Episodic Other lower respiratory disease (20 sources) Dyspnea; Translations: [Shortness of breath] Onset: 11-06-2019 11-06-2019 Episodic Other nervous system disorders (20 sources) Impairment of balance; Translations: [Other abnormalities of gait and mobility] Onset: 06-12-2019 05-04-2024 Episodic Other non-traumatic joint disorders (20 sources) Hip pain; Translations: [Pain in right hip] Onset: 10-13-2017 11-03-2017 Episodic Other upper respiratory disease (20 sources) Chronic hoarseness; Translations: [Dysphonia] Onset: 07-24-2020 [...] Name Value Interpretation Reference Range Facility CALCIUMon 08-16-2025 Calcium [Mass/Vol] 9.4 mg/dL Normal 8.5-10.5 [facility] Comment on above: Performed By: #### C A ####[facility] ([facility])[address], [place] [address] VIR CALCIUMon 07-16-2025 Calcium [Mass/Vol] 9.4 mg/dL Normal 8.5-10.5 [facility] Comment on above: Performed By: #### C A ####[facility] ([facility])[address], [place] [address] VIR CALCIUMon 06-12-2025 Calcium [Mass/Vol] 9.5 mg/dL Normal 8.5-10.5 [facility] Comment on above: Performed By: #### C A ####[facility] ([facility])[address], [place] [address] VIR CALCIUMon 05-15-2025 Calcium [Mass/Vol] 9.7 mg/dL Normal 8.5-10.5 [facility] Comment on above: Performed By: #### C A ####[facility] ([facility])[address], [place] [address] VIR CALCIUMon 04-13-2025 Calcium [Mass/Vol] 9.5 mg/dL Normal 8.5-10.5 [facility] Comment on above: Performed By: #### C A ####[facility] ([facility])[address], [place] [address] VIR CALCIUMon 03-19-2025 Calcium [Mass/Vol] 9.6 mg/dL Normal 8.5-10.5 [facility] Comment on above: Performed By: #### C A ####[facility] (TT)[address], [place] [address] VIR POCT Urinalysis Auto, W/O Mi croscopyon 02-27-2025 External Poct Urine Blood Negative [facility] External Poct Urine Glucose Negative [facility] External Poct Urine Ketones Negative [facility] External Poct Urine Leukocyte Esterase Negative [facility] External Poct Urine Nitrite Negative [facility] External Poct Urine Ph 5.5 [facility] External Poct Urine Protein 1+ [facility] CALCIUMon 02-14-2025 Calcium [Mass/Vol] 9.3 mg/dL Normal 8.5-10.5 [facility] Comment on above: Performed By: #### 1 7861-6 #### [facility] ([id number]) [address] [place] [address] CT ABDOMEN PELVIS WO IV CONT RASTon [...] UA Negative Negative - 4(70) +++ mg/dL [facility] Blood, UA Positive Negative - 50 Darryl/mcL [facility] Clarity, UA Cloudy [facility] Color, UA Yellow [facility] Glucose, UA Negative Negative - 2000(110) ++++ mg/dL [facility] Interpretation and review of laboratory results Abnormal [facility] Ketones, UA Negative Negative - 160(16) ++++ mg/dL [facility] Leukocytes, UA 3+ Negative - 500+++ Obdulio/mcL [facility] Nitrite, UA Positive Negative - Positive [facility] pH, UA 5 5 - 9 [facility] Protein, UA 2+ Negative - 2000(20) ++++ mg/dL [facility] Spec Grav, UA 1.02 1 - 1.03 [facility] Urobilinogen, UA 1.0 0.2 - 12 mg/dL [facility] - Microbiology an d Antimicrobial susceptibilityon 01-15-2025 SARS-CoV-2 (COVID-19) RNA MICHAEL+probe Ql (Unsp spec) Negative [facility] No Panel Informationon 01-15 FLU A Positive [facility] FLU B Negative [facility] Interpretation and review of laboratory results Abnormal [facility] CALCIUMon 01-11-2025 Calcium [Mass/Vol] 9.8 mg/dL Normal 8.5-10.5 [facility] Comment on above: Performed By: #### 1 7861-6 #### [facility] ([id number]) [address] [place] [address] Urinalysis macro (dipstick) panel (U)on 01-01-2025 Bilirubin, UA Negative Negative - 4(70) +++ mg/dL [facility] Blood, UA Positive Negative - 50 Darryl/mcL [facility] Clarity, UA Cloudy [facility] Color, UA Dark María [facility] Glucose, UA Negative Negative - 2000(110) ++++ mg/dL [facility] Interpretation and review of laboratory results Abnormal [facility] Ketones, UA Negative Negative - 160(16) ++++ mg/dL [facility] Leukocytes, UA 4+ Negative - 500+++ Obdulio/mcL [facility] Nitrite, UA Negative Negative - Positive [facility] pH, UA 5 5 - 9 [facility] Protein, UA 3+ Negative - 2000(20) ++++ mg/dL [facility] Spec Grav, UA 1.02 1 - 1.03 [facility] Urobilinogen, UA 0.2 0.2 - 12 mg/dL [facility] CT BRAIN WO CONTon CT BRAIN [...] Dharmesh Mittal on 12/23/2024 8:53 PM Normal [facility] CT CERVICAL SPINE WO CONTon 12-23-2024 [...] by Dharmesh Mittal on 12/23/2024 8:44 PM [facility] CT KNEE RT WO CONTon 025 [...] Singh MD on 12/23/2024 9:54 PM Normal [facility] XR CHEST 1 VWon 12-23-2024 XR [...] Negrete MD on 12/23/2024 8:36 PM Normal [facility] XR HIP RT 2-3 VIEWS W [...] Dharmesh Mittal on 12/23/2024 8:41 PM Normal [facility] XR KNEE RT 3 VWSon XR [...] Dharmesh Mittal on 12/23/2024 8:56 PM Normal [facility] XR SHOULDER RT MIN 2 VWSon [...] Negrete MD on 12/23/2024 8:31 PM Normal [facility] - Miscellaneous t estson 12-10-2024 Service comment (Unsp spec) [Interp] [facility] Comment on above: This urine was adolfo zed for the presence of WBC, RBC, bacteria, casts, and other formed elements. Only those elements seen were reported. No Panel Informationon 12-10 Performing Organization Information Site ID: QPT Name: [employer] [facility] Address: [address] [place] [id number] Director: Angel Noble MD [facility] [...] sed) [#/Area] NONE SEEN NONE SEEN /LPF [facility] Interpretation and review of laboratory results Abnormal [facility] Ketones Ql (U) Negative NEGATIVE [facility] Leukocyte esterase Test strip Ql (U) 3+ Abnormal NEGATIVE [facility] Nitrite Ql (U) Negative NEGATIVE [facility] pH (U) 6.5 [pH] 5.0 - 8.0 [facility] Protein Ql (U) TRACE Abnormal NEGATIVE [facility] RBC LM.HPF (Urine sed) [#/Area] 0-2 < OR = 2 /HPF [facility] Specific gravity (U) [Rel density] 1.017 1.001 - 1.035 [facility] WBC LM.HPF (Urine sed) [#/Area] PACKED Abnormal < OR = 5 /HPF [facility] Urinalysis macro (dipstick) panel (U)on 12-08-2024 Bilirubin, UA Negative Negative - 4(70) +++ mg/dL [facility] Blood, UA Positive Negative - 50 Darryl/mcL [facility] Clarity, UA Cloudy [facility] Color, UA Yellow [facility] Glucose, UA Negative Negative - 2000(110) ++++ mg/dL [facility] Interpretation and review of laboratory results Abnormal [facility] Ketones, UA Negative Negative - 160(16) ++++ mg/dL [facility] Leukocytes, UA 4+ Negative - 500+++ Obdulio/mcL [facility] Nitrite, UA Negative Negative - Positive [facility] pH, UA 6 5 - 9 [facility] Protein, UA 2+ Negative - 2000(20) ++++ mg/dL [facility] Spec Grav, UA 1.01 1 - 1.03 [facility] Urobilinogen, UA 0.2 0.2 - 12 mg/dL [facility] XR SPINE LUMBAR 2 OR 3 [...] Mendoza MD on 11/28/2024 3:13 PM Normal [facility] ANGEL[facility] ([id number]) 1945 F Date Time Provider Department 10/04/24 ROSE VELASQUEZ [facility] During your visit today, we recorded the following information about you: Jessica Ashley 10/04/2024 3:20 PM Signed General Call Caller : Angela Contact Reason for Call : Did you speak with Dr. Hoover regarding her most recent appt? Patient requesting return call ? Yes Rose Velasquez, MASOOD.NURSE STAFF INDUSTRIAL 10/06/2024 10:09 AM Signed Voicemail left for Angela at [phone]. Call back number given. 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 My note was forward to Dr. Hoover for review. At this time we recommend follow up and new imaging in 1 year. Rose Velasquez, MSN, INSPECTOR [employer] SORTER, NURSE STAFF INDUSTRIAL Certified Nurse Practitioner Allergies As of Date: [...] Encounter Status:Closed by ROSE VELASQUEZ on 10/06/24 [facility] CNOVon 09-26-2024 [facility] Office Visit ([facility] ) ANGELA RUTH ([id number]) 1945 F Date Time Provider Department 09/26/24 1:45 PM ROSE VELASQUEZ [facility] During your visit today, we recorded the following information about you: Pulse Blood pressure Weight 91/minute 143/81 67 kg Rose Velasquez APRN.CNP 09/26/2024 3:27 PM Signed [facility] NEURO-ONCOLOGY OUTPATIENT CLINIC NOTE [...] bedtime (Pat (more content not included)... Normal [facility] MR Brain WO and W contrast I Von 09-26-2024 IMPRESSION: Stable size of a RIGHT petrous ridge presumed meningioma compared to 03/02/2024. Athletic Trainer: [facility] Transcribe Date/Time: Sep 26 2024 2:10P Dictated by : MAUREEN PEARL MD This examination was interpreted and the report reviewed and electronically signed by: MAUREEN PEARL MD on Sep 26 2024 2:14PM [facility] DIVISION OF RADIOLOGY * * *Final Report* * * DATE OF EXAM: Sep 26 2024 12:29PM [facility] - MRI BRAIN WO/W IVCON / [...] tissues otherwise unremarkable. DIVISION OF RADIOLOGY Provider, [facility] - 09/26/2024 * * *Final Report* * * DATE OF EXAM: Sep 26 2024 12:29PM [facility] - MRI BRAIN WO/W IVCON / [...] petrous ridge presumed meningioma compared to 03/02/2024. Athletic Trainer: PSCB Transcribe Date/Time: Sep 26 2024 2:10P Dictated by : MAUREEN PEARL MD This examination was interpreted and the report reviewed and electronically signed by: MAUREEN PEARL MD on Sep 26 2024 2:14PM EST [facility] Radiology Study observation (narrative) [facility] MR Brain WO and W contrast I VOrdered By: Ccf Provider on 09-26-2024 [facility] MRI BRAIN WO/W IVCONon 09-26 MRI BRAIN WO/W IVCON * * *Final Report* * * DATE OF EXAM: Sep 26 2024 12:29PM [facility] - MRI BRAIN WO/W IVCON / [...] petrous ridge presumed meningioma compared to 03/02/2024. Athletic Trainer: ALLYSSA Transcribe Date/Time: Sep 26 2024 2:10P Dictated by : MAUREEN PEARL MD This examination was interpreted and the report reviewed and electronically signed by: MAUREEN PEARL MD on Sep 26 2024 2:14PM EST [id number] Normal [facility] Laboratory - Microbiology an d Antimicrobial susceptibilityon 08-16-2024 SARS-CoV-2 (COVID-19) RNA MICHAEL+probe Ql (Unsp spec) Negative [facility] No Panel Informationon 08-16 FLU A Negative [facility] FLU B Negative [facility] Healthcare Interpretation and review of laboratory results Normal [facility] Healthcare [facility] XR Thoracic spine 3 [...] report is generated using voice recognition reporting (eyeQ). On occasion Typekitcribe erroneously drops words from the report or [...] report is generated using voice recognition reporting (eyeQ). On occasion HopStop.come erroneously drops words from the report or replaces the spoken word with similar sounding words. Please call with any questions/concerns regarding this report.* Dictated and transcribed 07/11/2024/tm This report has been electronically signed and approved by the interpreting radiologist. Electronically Signed Shubham Almodovar II, M.D. 2024-07-11 10:01:04 [facility] XR Thoracic spine 3 ViewsOrd ered By: Shubham Almodovar on 07-11-2024 [facility] Work Phone: Urinalysis macro (dipstick) panel (U)on 07-10-2024 Bilirubin, UA Negative Negative - 4(70) +++ mg/dL [facility] Blood, UA Positive Negative - 50 Darryl/mcL [facility] Clarity, UA Cloudy [facility] Color, UA Yellow [facility] Glucose, UA Negative Negative - 1999(110) ++++ mg/dL [facility] Interpretation and review of laboratory results Abnormal [facility] Ketones, UA Negative Negative - 160(16) ++++ mg/dL [facility] Leukocytes, UA 3+ Negative - 500+++ Obdulio/mcL [facility] Nitrite, UA Positive Negative - Positive [facility] pH, UA 6.5 5 - 9 [facility] Protein, UA 2+ Negative - 2000(20) ++++ mg/dL [facility] Spec Grav, UA 1.010 1 - 1.03 [facility] Urobilinogen, UA 1.0 0.2 - 12 mg/dL [facility] 3 Viewson 07-10-2024 Radiology Study observation (narrative) [facility] CNOVon 04-04-2024 CNOV Office Visit (NSCAMN ) ANGELA RUTH ([id number]) 1945 F Date Time Provider Department 04/04/24 10:30 AM MANDI HOOVER NSCAMN During your visit today, we recorded the following information about you: Temperature Pulse Respiration Blood pressure 97.7 degrees 80/minute 18/minute 105/65 Weight Height 69.6 kg 1.6 m Mandi Hoover MD 04/05/2024 5:50 PM Signed SECTION OF SKULL BASE SURGERY MINIMALLY INVASIVE CRANIAL BASE AND PITUITARY SURGERY PROGRAM [facility] CC: Patient Care Team: Bia Cao as PCP ([facility]) Corey Chacon MD as NI Referring Team [...] (Danni/West side preference). - follow up with preschool principal for hearing loss which is unrelated to [...] Patient is accompanied by her granddaughter (her national flatbed truck driver) and great grand daughter). 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 The patient takes ASA 81 mg daily for cardioprotection per her PCP. The patient has been using a cane for the last 5-6 years. The patient reports that ~6 weeks ago, she walked into her garage door and fell. The patient has not seen an preschool principal or a vestibular therapist. Past Medical History: [...] Units once (more content not included)... Normal [facility] ([id number]) 1945 F Date Time Provider Department 03/24/24 NEUROLOGY PROVIDER NI During your visit today, we recorded the following information about you: Shelli Fletcher 03/24/2024 5:01 PM Signed Ref[facility] Reason for visit: consideration of gamma knife for 1.2 cm enhancing lesion at right cerebelloponitine angle with leading differential including vestibular schwannoma and meningioma External records: Sent with referral and pulled from [facility] Triage: Required, forwarded to [facility] by telephone encounter sent to [facility] Scheduling Triage. Financial clearance: Not required to schedule Rose Velasquez APRN.NURSE STAFF INDUSTRIAL 03/28/2024 10:00 AM Signed Time Frame: First available Provider: Kiko Landrum Soni Referring: Corey Chacon MD Images to be requested from [facility] Dx: Right CPA mass Patient: Angela Ruth Address: Angela Ruth [id number] [place] [address] [place] [address] Per Triage: HISTORY OF PRESENT ILLNESS Angela [...] extracranial soft tissues are unremarkable. Rose Velasquez APRN.NURSE STAFF INDUSTRIAL March 28, 2024 Etelvina Trujillo 03/28/2024 10:12 AM Signed Called patient to schedule an appointment. No ans/left message to call the office back. Appointment scheduled: 04/04/2024 10:30 AM (Arrive by 10:15 AM) Mandi Hoover MD [facility] RAMAN Alonso Adamaris Fraga 04/06/2024 10:40 AM Addendum Imaging requested from [facility]. DOS requested: MRI 03/02/2024 CT Scan 02/11 [...] Records [3576] Cmt: External referral to [facility] triage [Other] Nurse Triage Call [185] Appointment [186] Primary Visit Diagnosis:Brain mass [G93.89] [G93.89] Prescriptions as of 04/06/2024 - hydrALAZINE (APRESOLINE) 100 mg tablet take 1 tablet by mouth twice a day then MAY TAKE ADDITIONAL (50 M... (REFER (more content not included)... Normal [facility] CT Abdomen/Pelvis w + w/o Co [...] by Felix Dominguez on 12/07/2022 1159 Normal [facility] XR HAND LEFT (MIN 3 VIEWS)on [...] Matt Cowart MD 11/07/22 Final result Normal [facility] XR HAND LEFT (MIN 3 VIEWS) [...] Matt Cowart MD 11/07/22 Final result Normal [facility] XR Chest 2 Views*on 09-10-20 XR [...] by Bartolome Monson on 09/10/2022 1507 Normal [facility] Complete Blood Count with Au to Diffon 12-11-2021 Basophils (Bld) [#/Vol] 0.07 10*3/uL Normal 0.00-0.20 [facility] Comment on above: Performed By: #### C LG, CBCAD #### [facility] [address] [place], [place] [id number] Basophils/100 WBC (Bld) 0.9 % Normal [facility] Comment on above: Performed By: #### C LG, CBCAD #### [facility] [address] [place], [place] [id number] Eosinophils (Bld) [#/Vol] 0.17 10*3/uL Normal 0.02-0.50 [facility] Comment on above: Performed By: #### C MP, CBCAD #### [facility] [address] [place], [place] [id number] Eosinophils/100 WBC (Bld) 2.3 % Normal [facility] Comment on above: Performed By: #### C MP, CBCAD #### [facility] [address] [place], [place] [id number] Erythrocyte distribution width (RBC) [Ratio] 16.4 % High 11.0-15.0 [facility] Comment on above: Performed By: #### C MP, CBCAD #### [facility] [address] [place], [place] [id number] Hematocrit (Bld) [Volume fraction] 42.9 % Normal 35.0-47.0 [facility] Comment on above: Performed By: #### C MP, CBCAD #### [facility] [address] [place], [place] [id number] Hemoglobin (Bld) [Mass/Vol] 13.5 g/dL Normal 11.6-15.5 [facility] Comment on above: Performed By: #### C MP, CBCAD #### [facility] [address] [place], [place] [id number] Lymphocytes (Bld) [#/Vol] 2.7 10*3/uL Normal 0.9-3.9 [facility] Comment on above: Performed By: #### C MP, CBCAD #### [facility] [address] [place], [place] [id number] Lymphocytes/100 WBC (Bld) 36.1 % Normal [facility] Comment on above: Performed By: #### C MP, CBCAD #### [facility] [address] [place], [place] [id number] MCH (RBC) [Entitic mass] 27.7 pg Normal 27.0-33.0 [facility] Comment on above: Performed By: #### C MP, CBCAD #### [facility] [address] [place], [place] [id number] MCHC (RBC) [Mass/Vol] 31.5 g/dL Low 32.0-36.0 [facility] Comment on above: Performed By: #### C MP, CBCAD #### [facility] [address] [place], [place] [id number] MCV (RBC) [Entitic vol] 88 fL Normal 80-100 [facility] Comment on above: Performed By: #### C MP, CBCAD #### [facility] [address] [place], [place] [id number] Monocytes (Bld) [#/Vol] 0.8 10*3/uL Normal 0.2-0.9 [facility] Comment on above: Performed By: #### C MP, CBCAD #### [facility] [address] [place], [place] [id number] Monocytes/100 WBC (Bld) 10.8 % Normal [facility] Comment on above: Performed By: #### C MP, CBCAD #### [facility] [address] [place], [place] [id number] Neutrophils (Bld) [#/Vol] 3.7 10*3/uL Normal 1.5-7.8 [facility] Comment on above: Performed By: #### C MP, CBCAD #### [facility] [address] [place], [place] [id number] Neutrophils/100 WBC (Bld) 49.2 % Normal [facility] Comment on above: Performed By: #### C MP, CBCAD #### [facility] [address] [place], [place] [id number] Platelet mean volume (Bld) [Entitic vol] 11.00 fL Normal 7.50-12.50 [facility] Comment on above: Performed By: #### C MP, CBCAD #### [facility] [address] [place], [place] [id number] Platelets (Bld) [#/Vol] 246 10*3/uL Normal 140-400 [facility] Comment on above: Performed By: #### C MP, CBCAD #### [facility] [address] [place], [place] [id number] RBC (Bld) [#/Vol] 4.88 10*6/uL Normal 3.90-5.20 [facility] Comment on above: Performed By: #### C MP, CBCAD #### [facility] [address] [place], [place] [id number] RDW-SD 53.1 fL High 37.0-50.0 [facility] Comment on above: Performed By: #### C MP, CBCAD #### [facility] [address] [place], [place] [id number] WBC (Bld) [#/Vol] 7.5 10*3/uL Normal 3.8-11.0 [facility] Comment on above: Performed By: #### C MP, CBCAD #### [facility] [address] [place], [place] [id number] Comprehensive Metabolic Pane becky 12-11-2021 Albumin [Mass/Vol] 4.2 g/dL Normal 3.6-5.1 [facility]awan fitz[facility] Comment on above: Performed By: #### C MP, CBCAD #### [facility] [address] [place], [place] [id number] Albumin/Globulin [Mass ratio] 1.7 {ratio} Normal 1.0-2.5 [facility] Comment on above: Performed By: #### C MP, CBCAD #### [facility] [address] [place], [place] [id number] ALP [Catalytic activity/Vol] 71 U/L Normal 35-119 [facility] Comment on above: Performed By: #### C LG, CBCAD #### [facility] [address] [place], [place] [id number] ALT [Catalytic activity/Vol] 12 U/L Normal 6-33 [facility] Comment on above: Result Comment: 10/22 Female reference range changed. Performed By: #### C LG, CBCAD #### [facility] [address] [place], [place] [id number] Anion gap [Moles/Vol] 18 mmol/L Normal 12-20 [facility] Comment on above: Result Comment: Effe ctive 11/27/2019 reference range changed. Performed By: #### C LG, CBCAD #### [facility] [address] [place], [place] [id number] AST [Catalytic activity/Vol] 15 U/L Normal 9-34 [facility] Comment on above: Performed By: #### C LG, CBCAD #### [facility] [address] [place], [place] [id number] Bilirubin [Mass/Vol] 0.33 mg/dL Normal 0.30-1.20 [facility] Comment on above: Performed By: #### C MP, CBCAD #### [facility] [address] [place], [place] [id number] BUN/CREA 35 Ratio High 6-22 [facility] Comment on above: Performed By: #### C MP, CBCAD #### [facility] [address] [place], [place] [id number] Calcium [Mass/Vol] 9.4 mg/dL Normal 8.6-10.2 Pawan fitzgerald [facility] Comment on above: Performed By: #### C MP, CBCAD #### [facility] [address] [place], [place] [id number] Chloride [Moles/Vol] 106 mmol/L Normal 98-107 [facility] Comment on above: Performed By: #### C MP, CBCAD #### [facility] [address] [place], [place] [id number] CO2 [Moles/Vol] 24 mmol/L Normal 20-31 [facility] Comment on above: Performed By: #### C MP, CBCAD #### [facility] [address] [place], [place] [id number] Creatinine [Mass/Vol] 0.9 mg/dL Normal 0.6-1.4 [facility] Comment on above: Performed By: #### C MP, CBCAD #### [facility] [address] [place], [place] [id number] eGFRAA 70 mL/min/1.73m2 Normal >60 [facility] Comment on above: Performed By: #### C MP, CBCAD #### [facility] [address] [place], [place] [id number] eGFRNAA 58 mL/min/1.73m2 Low >60 [facility] Comment on above: Performed By: #### C MP, CBCAD #### [facility] [address] [place], [place] [id number] Globulin (S) [Mass/Vol] 2.5 g/dL Normal 1.9-3.7 [facility] Comment on above: Performed By: #### C MP, CBCAD #### [facility] [address] [place], [place] [id number] Glucose [Mass/Vol] 84 mg/dL Normal 65-99 Pawan fitzgerald [employer] Comment on above: Result Comment: For FASTING Glucose --- ADA reference ranges: Normal 65-99 mg/dl Prediabetes 100-125 Diabetes >/= 126 Performed By: #### C MP, CBCAD #### [facility] [address] [place], [place] [id number] Potassium [Moles/Vol] 4.3 mmol/L Normal 3.5-5.[address] [facility] Comment on above: Performed By: #### C MP, CBCAD #### [facility] [address] [place], [place] [id number] Protein [Mass/Vol] 6.7 g/dL Normal 6.1-8.1 Pawan fitzgerald [employer] Comment on above: Performed By: #### C MP, CBCAD #### [facility] [address] [place], [place] [id number] Sodium [Moles/Vol] 143 mmol/L Normal 135-146 Pawan fitzgerald [employer] Comment on above: Performed By: #### C MP, CBCAD #### [facility] [address] [place], [place] [id number] Urea nitrogen [Mass/Vol] 33 mg/dL High 7-25 [facility] Comment on above: Performed By: #### C MP, CBCAD #### [facility] [address] [place], [place] [id number] Calciumon 06-20-2019 Calcium [Mass/Vol] 10.0 mg/dL Normal 8.4-10.2 [facility] Comment on above: Performed By: #### 1 030, 1035, 4500, 4510, 4520, 4581 #### [facility] Unless Otherwise Noted [address] [address] / COLA #4724/CLIA # [id number] Creatinineon 06-20-2019 Creatinine [Mass/Vol] 0.9 mg/dL Normal 0.5-1.0 End [facility] Comment on above: Performed By: #### 1 030, 1035, 4500, 4510, 4520, 4581 #### [facility] Unless Otherwise Noted [address] [address] / [facility] #4724/CLIA # [id number] Creatinine [Mass/Vol] 74.8 Kg Normal End [facility] Comment on above: Performed By: #### 1 030, 1035, 4500, 4510, 4520, 4581 #### [facility] Unless Otherwise Noted [address] [address] / COLA #4724/CLIA # [id number] Creatinine [Mass/Vol] 64.8 ml/m1.73 Normal [facility] Comment on above: Performed By: #### 1 030, 1035, 4500, 4510, 4520, 4581 #### [facility] Unless Otherwise Noted [address] [address] / COLA #4724/CLIA # [id number] Creatinine [Mass/Vol] 65.1 ml/m1.73 Normal [facility] Comment on above: Performed By: #### 1 030, 1035, 4500, 4510, 4520, 4581 #### [facility] Unless Otherwise Noted [address] [address] / COLA #4724/CLIA # [id number] Creatinine [Mass/Vol] 78.7 ml/m1.73 Normal [facility] Comment on above: Performed By: #### 1 030, 1035, 4500, 4510, 4520, 4581 #### [facility] Unless Otherwise Noted [address] [address] / COLA #4724/CLIA # [id number] FT3on 06-20-2019 FT3 2.80 pg/mL Normal 2.45-5.93 [facility] Comment on above: Performed By: #### 1 030, 1035, 4500, 4510, 4520, 4581 #### [facility] Unless Otherwise Noted [address] [address] / COLA #4724/CLIA # [id number] FT4on 06-20-2019 Free T4 [Mass/Vol] 1.93 ng/dL Normal 0.78-2.44 [facility] Comment on above: Performed By: #### 1 030, 1035, 4500, 4510, 4520, 4581 #### [facility] Unless Otherwise Noted [address] [facility] [address] [place] [address] / COL[facility] #4724/CLIA # [id number] TSHon 06-20-2019 TSH Qn 0.57 uIU/ml Normal 0.47-4.68 [facility] Comment on above: Performed By: #### 1 030, 1035, 4500, 4510, 4520, 4581 #### [facility] Unless Otherwise Noted [address] [facility] [address] [place] [address] / COLA #4724/CLIA # [id number] VITAMIN D 25on 06-20-2019 VITAMIN D 25 51.5 ng/ml Normal 30.0-100.0 Endocrine [facility] Comment on above: Result Comment: Defi cient <20 Insufficient 20-<30 Sufficient 30-100 Potiential Toxicity >100 Performed By: #### 1 030, 1035, 4500, 4510, 4520, 4581 #### [facility] Unless Otherwise Noted [address] [facility] [address] [place] [address] / COL[facility] #4724/CLIA # [id number] Basic Metabolic Profon 05-06 (cont.) Normal [facility] Comment on above: Result Comment: Aver age GFR for 70 or more years old: 75 mL/min/1.73sq mChronic Kidney Disease: <60 mL/min/1.73sq mKidney failure: <15 mL/min/1.73sq meGFR calculated using average adult body mass. Additional eGFR calculator available at:http://www.Melon #usemelon.immoture.be/multiple_crcl_2012.htmPerformed at [facility] [address] [place] [address] Performed By: #### C DP, BMP ####[address] [address] Anion gap 14 mmol/L Normal 9-17 [facility] Comment on above: Performed By: #### C DP, BMP ####[address] [address] Calcium 9.6 mg/dL Normal 8.6-10.4 [facility] Comment on above: Performed By: #### C DP, BMP ####[address] [address] Chloride 106 mmol/L Normal 98-107 [facility] Comment on above: Performed By: #### C DP, BMP ####[address] [address] CO2 26 mmol/L Normal 20-31 [facility] Comment on above: Performed By: #### C DP, BMP ####[address] [address] Creatinine 0.91 mg/dL High 0.50-0.90 [facility] Comment on above: Performed By: #### C DP, BMP ####[address] [address] eGFR (non-black) mL/min/{1.73_m2} Normal >60 [facility] Comment on above: Performed By: #### C DP, BMP ####[address] [address] Glucose mass conc 99 mg/dL Normal 70-99 [facility] Comment on above: Performed By: #### C DP, BMP ####[address] [address] Potassium molar conc 4.2 mmol/L Normal 3.7-5.3 [facility] Comment on above: Performed By: #### C DP, BMP ####[address] [address] Sodium 146 mmol/L High 135-144 [facility] Comment on above: Performed By: #### C DP, BMP ####[address] [address] Urea nitrogen 21 mg/dL Normal 8-23 [facility] Comment on above: Performed By: #### C DP, BMP ####[facility] [place] [address] BUN/CRE Ratio NOT REPORTED Normal 9-20 [facility] Comment on above: Performed By: #### C DP, BMP ####[address] [address] Staging: NOT REPORTED Normal [facility] Comment on above: Performed By: #### C DP, BMP ####[address] [address] CBC with Diffon 05-06-2018 Abs. Basophil 0.10 k/uL Normal 0.0-0.2 [facility] Comment on above: Result Comment: Perf ormed at [facility] [address] [place] [address] Performed By: #### C DP, BMP ####[address] [address] Abs.Neutrophil (Seg) 4.00 k/uL Normal 1.3-9.1 [facility] Comment on above: Performed By: #### C DP, BMP ####[facility] [place] [address].[place] [address] Basophils/100 WBC Auto (Bld) 1 % Normal 0-2 [facility] Comment on above: Performed By: #### C DP, BMP ####[facility] [place], [place] [address] [place] [address] Eosinophils 0.20 10*3/uL Normal 0.0-0.4 [facility] Comment on above: Performed By: #### C DP, BMP ####[facility] [place] [address] Eosinophils/100 leukocytes 2 % Normal 0-4 [facility] Comment on above: Performed By: #### C DP, BMP ####[facility] [place] [address] Erythrocyte distribution width Auto Ratio (RBC) 13.9 % Normal 11.5-14.9 [facility] Comment on above: Performed By: #### C DP, BMP ####[facility] [place] [address] Erythrocytes (RBC) 4.68 10*6/uL Normal 4.0-5.2 [facility] Comment on above: Performed By: #### C DP, BMP ####[facility] [place] [address] Hematocrit (HCT) 41.8 % Normal 36-46 [facility] Comment on above: Performed By: #### C DP, BMP ####[address] [place] [address] Hemoglobin mass conc (Bld) 13.7 g/dL Normal 12.0-16.0 [facility] Comment on above: Performed By: #### C DP, BMP ####[facility] [place] [address] Lymphocytes 3.20 10*3/uL Normal 1.0-4.8 [facility] Comment on above: Performed By: #### C DP, BMP ####[facility] [place] [address] Lymphocytes/100 leukocytes 39 % Normal 24-44 [facility] Comment on above: Performed By: #### C DP, BMP ####[facility] [place] [address] MCH 29.3 pg Normal 26-34 [facility] Comment on above: Performed By: #### C DP, BMP ####[facility] [place] [address] MCHC mass conc (RBC) 32.8 g/dL Normal 31-37 [facility] Comment on above: Performed By: #### C DP, BMP ####[address] [address] MCV 89.3 fL Normal 80-100 [facility] Comment on above: Performed By: #### C DP, BMP ####[facility] [place] [address] Monocytes 0.90 10*3/uL Normal 0.1-1.3 [facility] Comment on above: Performed By: #### C DP, BMP ####[facility] [place] [id number] Monocytes/100 leukocytes 11 % High 1-7 [facility] Comment on above: Performed By: #### C DP, BMP ####[facility] [place] [id number] Neutrophil (Seg) 47 % Normal 36-66 [facility] Comment on above: Performed By: #### C DP, BMP ####[address] [address] Platelet mean volume (PMV) 10.3 fL Normal 6.0-12.0 [facility] Comment on above: Performed By: #### C DP, BMP ####[address] [address] Platelets 232 10*3/uL Normal 150-450 [facility] Comment on above: Performed By: #### C DP, BMP ####[address] [address] WBC (Leukocytes) 8.4 10*3/uL Normal 3.5-11.0 [facility] Comment on above: Performed By: #### C DP, BMP ####[address] [address] Auto Diff Performed NOT REPORTED Normal [facility] Comment on above: Performed By: #### C DP, BMP ####[address] [address] Erythrocyte morphology NOT REPORTED Normal [facility] Comment on above: Performed By: #### C DP, BMP ####[address] [address] Erythrocytes (RBC) NOT REPORTED Normal [facility] Comment on above: Performed By: #### C DP, BMP ####[address] [address] Granulocytes/100 WBC (Bld) NOT REPORTED Normal 0.00-0.30 [facility] Comment on above: Performed By: #### C DP, BMP ####[address] [address] Immature granulocytes #/vol (Bld) NOT REPORTED Normal 0 [facility] Comment on above: Performed By: #### C DP, BMP ####[facility] [place] [address] Platelets NOT REPORTED Normal [facility] Comment on above: Performed By: #### C DP, BMP ####[facility] [place] [address] WBC Morphology NOT REPORTED Normal [facility] Comment on above: Performed By: #### C DP, BMP ####[facility] [place] [id number] Vital Signs Date Time Vital Sign Value Performing Clinician Facility 08-17-2025 13:07-0400 Body height 157.5 cm Pfo 5 [facility] 08-17-2025 13:07-0400 Body mass index (BMI) [Ratio] 24.61 kg/m2 Pfo 5 [facility] 08-17-2025 13:07-0400 Body temperature 98.2 [degF] Pfo 5 [facility] 08-17-2025 13:07-0400 Body weight 61.05 kg Pfo 5 [facility] 08-17-2025 13:07-0400 Diastolic blood pressure 50 mm[Hg] Pfo 5 [facility] 08-17-2025 13:07-0400 Heart rate 70 /min Pfo 5 [facility] 08-17-2025 13:07-0400 Respiratory rate 16 /min Pfo 5 [facility] 08-17-2025 13:07-0400 SaO2% (BldA) [Mass fraction] 96 % Pfo 5 [facility] 08-17-2025 13:07-0400 Systolic blood pressure 113 mm[Hg] Pfo 5 [facility] 07-20-2025 13:14-0400 Body height 157.5 cm Pfo 1 [facility] 07-20-2025 13:14-0400 Body mass index (BMI) [Ratio] 24.94 kg/m2 Pfo 1 [facility] 07-20-2025 13:14-0400 Body temperature 98.49 [degF] Pfo 1 [facility] 07-20-2025 13:140400 Body weight 61.87 kg Pfo 1 [facility] 07-20-2025 13:14-0400 Diastolic blood pressure 52 mm[Hg] Pfo 1 [facility] 07-20-2025 13:14-0400 Heart rate 71 /min Pfo 1 [facility] 07-20-2025 13:140400 Respiratory rate 16 /min Pfo 1 [facility] 07-20-2025 13:140400 SaO2% (BldA) [Mass fraction] 95 % Pfo 1 [facility] 07-20-2025 13:14-0400 Systolic blood pressure 116 mm[Hg] Pfo 1 [facility] 07-10-2025 13:02-0400 Body height 160 cm Bia Cao MD Work Phone: [facility] 07-10-2025 13:02-0400 Body mass index (BMI) [Ratio] 24.16 kg/m2 Bia Cao MD Work Phone: [facility] 07-10-2025 13:02-0400 Body weight 61.87 kg Bia aCo MD Work Phone: [facility] 07-10-2025 13:02-0400 Diastolic blood pressure 68 mm[Hg] Bia Cao MD Work Phone: [facility] 07-10-2025 13:02-0400 Heart rate 71 /min Bia Cao MD Work Phone: [facility] 07-10-2025 13:02-0400 Respiratory rate 18 /min Bia Cao MD Work Phone: [facility] 07-10-2025 13:02-0400 SaO2% (BldA) [Mass fraction] 98 % Bia Cao MD Work Phone: [facility] 07-10-2025 13:02-0400 Systolic blood pressure 122 mm[Hg] Bia Cao MD Work Phone: [facility] 06-13-2025 13:57-0400 Body height 157.5 cm Randall WILKINSON Work Phone: [facility] 06-13-2025 13:57-0400 Body mass index (BMI) [Ratio] 25.6 kg/m2 Randall WILKINSON Work Phone: [facility] 06-13-2025 13:57-0400 Body weight 63.5 kg Randall WILKINSON Work Phone: [facility] 06-13-2025 13:57-0400 Diastolic blood pressure 62 mm[Hg] Randall WILKINSON Work Phone: [facility] 06-13-2025 13:57-0400 Heart rate 74 /min Randall WILKINSON Work Phone: [facility] 06-13-2025 13:57-0400 Systolic blood pressure 103 mm[Hg] Randall WILKINSON Work Phone: [facility] 06-13-2025 12:30-0400 Body height 157.5 cm Pfo 1 [facility] 06-13-2025 12:30-0400 Body mass index (BMI) [Ratio] 25.71 kg/m2 Pfo 1 [facility] 06-13-2025 12:30-0400 Body temperature 97.5 [degF] Pfo 1 [facility] 06-13-2025 12:30-0400 Body weight 63.78 kg Pfo 1 [facility] 06-13-2025 12:30-0400 Diastolic blood pressure 46 mm[Hg] Pfo 1 [facility] 06-13-2025 12:30-0400 Heart rate 68 /min Pfo 1 [facility] 06-13-2025 12:30-0400 Respiratory rate 16 /min Pfo 1 [facility] 06-13-2025 12:30-0400 SaO2% (BldA) [Mass fraction] 98 % Pfo 1 [facility] 06-13-2025 12:30-0400 Systolic blood pressure 133 mm[Hg] Pfo 1 [facility] 05-16-2025 10:10-0400 Body height 157.5 cm Pfo 1 [facility] 05-16-2025 10:10-0400 Body mass index (BMI) [Ratio] 25.86 kg/m2 Pfo 1 [facility] 05-16-2025 10:10-0400 Body temperature 97.81 [degF] Pfo 1 [facility] 05-16-2025 10:10-0400 Body weight 64.14 kg Pfo 1 [facility] 05-16-2025 10:10-0400 Diastolic blood pressure 59 mm[Hg] Pfo 1 [facility] 05-16-2025 10:10-0400 Heart rate 77 /min Pfo 1 [facility] 05-16-2025 10:10-0400 Respiratory rate 16 /min Pfo 1 [facility] 05-16-2025 10:10-0400 SaO2% (BldA) [Mass fraction] 98 % Pfo 1 [facility] 05-16-2025 10:10-0400 Systolic blood pressure 145 mm[Hg] Pfo 1 [facility] 04-18-2025 13:24-0400 Body height 157.5 cm John Johnson MD Work Phone: [facility] 04-18-2025 13:24-0400 Body mass index (BMI) [Ratio] 26.31 kg/m2 John Johnson MD Work Phone: [facility] 04-18-2025 13:24-0400 Body weight 65.27 kg John Johnson MD Work Phone: [facility] 04-18-2025 13:24-0400 Diastolic blood pressure 68 mm[Hg] John Johnson MD Work Phone: [facility] 04-18-2025 13:24-0400 Heart rate 73 /min John Johnson MD Work Phone: [facility] 04-18-2025 13:24-0400 Systolic blood pressure 114 mm[Hg] John Johnson MD Work Phone: [facility] 04-18-2025 10:18-0400 Body height 157.5 cm Pfo 1 [facility] 04-18-2025 10:18-0400 Body mass index (BMI) [Ratio] 26.48 kg/m2 Pfo 1 [facility] [employer] [facility] 04-18-2025 10:18-0400 Body temperature 98.1 [degF] Pfo 1 [facility] [employer] [facility] 04-18-2025 10:18-0400 Body weight 65.68 kg Pfo 1 [facility] 04-18-2025 10:18-0400 Diastolic blood pressure 51 mm[Hg] Pfo 1 [facility] 04-18-2025 10:18-0400 Heart rate 77 /min Pfo 1 [facility] 04-18-2025 10:18-0400 Respiratory rate 15 /min Pfo 1 [facility] 04-18-2025 10:18-0400 SaO2% (BldA) [Mass fraction] 96 % Pfo 1 [facility] [employer] [facility] 04-18-2025 10:18-0400 Systolic blood pressure 126 mm[Hg] Pfo 1 [facility] 04-09-2025 13:33-0400 Body height 160 cm Bia Cao MD Work Phone: [facility] 04-09-2025 13:33-0400 Body mass index (BMI) [Ratio] 25.86 kg/m2 Bia Cao MD Work Phone: [facility] 04-09-2025 13:33-0400 Body weight 66.22 kg Bia Cao MD Work Phone: [facility] 04-09-2025 13:33-0400 Diastolic blood pressure 62 mm[Hg] Bia Cao MD Work Phone: [facility] 04-09-2025 13:33-0400 Heart rate 75 /min Bia Cao MD Work Phone: [facility] 04-09-2025 13:33-0400 Respiratory rate 18 /min Bia Cao MD Work Phone: [facility] 04-09-2025 13:33-0400 SaO2% (BldA) [Mass fraction] 96 % Bia Cao MD Work Phone: [facility] 04-09-2025 13:33-0400 Systolic blood pressure 124 mm[Hg] Bia Cao MD Work Phone: [facility] 03-21-2025 10:37-0400 Body height 157.5 cm Pfo 1 [facility] 03-21-2025 10:37-0400 Body mass index (BMI) [Ratio] 26.95 kg/m2 Pfo 1 [facility] 03-21-2025 10:37-0400 Body temperature 97.81 [degF] Pfo 1 [facility] 03-21-2025 10:37-0400 Body weight 66.86 kg Pfo 1 [facility] 03-21-2025 10:37-0400 Diastolic blood pressure 62 mm[Hg] Pfo 1 [facility] 03-21-2025 10:37-0400 Heart rate 63 /min Pfo 1 [facility] 03-21-2025 10:37-0400 Respiratory rate 15 /min Pfo 1 [facility] 03-21-2025 10:37-0400 SaO2% (BldA) [Mass fraction] 99 % Pfo 1 [facility] 03-21-2025 10:37-0400 Systolic blood pressure 149 mm[Hg] Pfo 1 [facility] 02-27-2025 14:30-0400 Body height 157.5 cm Randall WILKINSON Work Phone: [facility] 02-27-2025 14:30-0400 Body mass index (BMI) [Ratio] 26.89 kg/m2 Randall WILKINSON Work Phone: [facility] 02-27-2025 14:30-0400 Body weight 66.68 kg Randall WILKINSON Work Phone: [facility] 02-27-2025 14:30-0400 Diastolic blood pressure 59 mm[Hg] Randall WILKINSON Work Phone: [facility] 02-27-2025 14:30-0400 Heart rate 85 /min Randall WILKINSON Work Phone: [facility] 02-27-2025 14:30-0400 Systolic blood pressure 97 mm[Hg] Randall WILKINSON Work Phone: [facility] 02-16-2025 13:05-0400 Body height 157.5 cm Pfo 1 [facility] 02-16-2025 13:05-0400 Body mass index (BMI) [Ratio] 27.03 kg/m2 Pfo 1 [facility] 02-16-2025 13:05-0400 Body temperature 98.4 [degF] Pfo 1 [facility] 02-16-2025 13:05-0400 Body weight 67.04 kg Pfo 1 [facility] 02-16-2025 13:05-0400 Diastolic blood pressure 49 mm[Hg] Pfo 1 [facility] 02-16-2025 13:05-0400 Heart rate 85 /min Pfo 1 [facility] 02-16-2025 13:05-0400 Respiratory rate 18 /min Pfo 1 [facility] 02-16-2025 13:05-0400 SaO2% (BldA) [Mass fraction] 96 % Pfo 1 [facility] 02-16-2025 13:05-0400 Systolic blood pressure 123 mm[Hg] Pfo 1 [facility] 02-12-2025 08:08-0400 Body height 157.5 cm Yoanna Dorsey [employer] Work Phone: [facility] 02-12-2025 08:08-0400 Body mass index (BMI) [Ratio] 27.22 kg/m2 Yoanna Dorsey [employer] Work Phone: [facility] [employer] [facility] 02-12-2025 08:08-0400 Body weight 67.5 kg Yoanna Dorsey [employer] Work Phone: [facility] 02-12-2025 08:08-0400 Diastolic blood pressure 78 mm[Hg] Yoanna Dorsey [employer] Work Phone: [facility] 02-12-2025 08:08-0400 Heart rate 77 /min Yoanna Dorsey [employer] Work Phone: [facility] 02-12-2025 08:08-0400 Systolic blood pressure 116 mm[Hg] Yoanna Dorsey [employer] Work Phone: [facility] 01-23-2025 16:22-0500 Body height 160 cm Bia Cao MD Work Phone: [facility] 01-23-2025 16:22-0500 Body mass index (BMI) [Ratio] 25.37 kg/m2 Bia Cao MD Work Phone: [facility] 01-23-2025 16:22-0500 Body temperature 97.39 [degF] Bia Cao MD Work Phone: [facility] 01-23-2025 16:22-0500 Body weight 64.95 kg Bia Cao MD Work Phone: [facility] 01-23-2025 16:22-0500 Diastolic blood pressure 74 mm[Hg] Bia Cao MD Work Phone: [facility] 01-23-2025 16:22-0500 Heart rate 87 /min Bia Cao MD Work Phone: [facility] 01-23-2025 16:22-0500 Respiratory rate 18 /min Bia Cao MD Work Phone: [facility] 01-23-2025 16:22-0500 SaO2% (BldA) [Mass fraction] 96 % Bia Cao MD Work Phone: [facility] 01-23-2025 16:22-0500 Systolic blood pressure 122 mm[Hg] Bia Cao MD Work Phone: [facility] 01-15-2025 14:20-0500 Body height 160 cm Bia Cao MD Work Phone: [facility] 01-15-2025 14:20-0500 Body mass index (BMI) [Ratio] 26.04 kg/m2 Bia Cao MD Work Phone: [facility] 01-15-2025 14:20-0500 Body weight 66.68 kg Bia Cao MD Work Phone: [facility] 01-15-2025 14:20-0500 Diastolic blood pressure 66 mm[Hg] Bia aCo MD Work Phone: [facility] 01-15-2025 14:20-0500 Heart rate 86 /min Bia Cao MD Work Phone: [facility] 01-15-2025 14:20-0500 Respiratory rate 18 /min Bia Cao MD Work Phone: [facility] 01-15-2025 14:20-0500 SaO2% (BldA) [Mass fraction] 94 % Bia Cao MD Work Phone: [facility] 01-15-2025 14:20-0500 Systolic blood pressure 130 mm[Hg] Bia Cao MD Work Phone: [facility] 01-12-2025 12:54-0500 Body height 160 cm Pfo 1 [facility] 01-12-2025 12:54-0500 Body mass index (BMI) [Ratio] 26.22 kg/m2 Pfo 1 [facility] 01-12-2025 12:54-0500 Body temperature 98.6 [degF] Pfo 1 [facility] 01-12-2025 12:54-0500 Body weight 67.13 kg Pfo 1 [facility] 01-12-2025 12:54-0500 Diastolic blood pressure 54 mm[Hg] Pfo 1 [facility] 01-12-2025 12:54-0500 Heart rate 82 /min Pfo 1 [facility] 01-12-2025 12:54-0500 Respiratory rate 16 /min Pfo 1 [facility] 01-12-2025 12:54-0500 SaO2% (BldA) [Mass fraction] 96 % Pfo 1 [facility] 01-12-2025 12:54-0500 Systolic blood pressure 107 mm[Hg] Pfo 1 [facility] 01-11-2025 15:07-0500 Body height 160 cm Pfo 1 [facility] 01-11-2025 15:07-0500 Body mass index (BMI) [Ratio] 26.22 kg/m2 Pfo 1 [facility] 01-11-2025 15:07-0500 Body temperature 97.11 [degF] Pfo 1 [facility] 01-11-2025 15:07-0500 Body weight 67.13 kg Pfo 1 [facility] 01-11-2025 15:07-0500 Diastolic blood pressure 85 mm[Hg] Pfo 1 [facility] 01-11-2025 15:07-0500 Heart rate 83 /min Pfo 1 [facility] 01-11-2025 15:07-0500 Respiratory rate 16 /min Pfo 1 [facility] 01-11-2025 15:07-0500 SaO2% (BldA) [Mass fraction] 96 % Pfo 1 [facility] 01-11-2025 15:07-0500 Systolic blood pressure 140 mm[Hg] Pfo 1 [facility] 01-09-2025 13:53-0500 Body height 160 cm Katerin Alvarado MD Work Phone: [facility] 01-09-2025 13:53-0500 Body mass index (BMI) [Ratio] 26.57 kg/m2 Katerin Alvarado MD Work Phone: [facility] 01-09-2025 13:53-0500 Body weight 68.04 kg Katerin Alvarado MD Work Phone: [facility] 01-09-2025 13:53-0500 Diastolic blood pressure 62 mm[Hg] Katerin Alvarado MD Work Phone: [facility] 01-09-2025 13:53-0500 Heart rate 87 /min Katerin Alvarado MD Work Phone: [facility] 01-09-2025 13:53-0500 Systolic blood pressure 108 mm[Hg] Katerin Alvarado MD Work Phone: [facility] 12-26-2024 09:30-0500 Body height 160 cm Bia Cao MD Work Phone: [facility] 12-26-2024 09:30-0500 Body mass index (BMI) [Ratio] 26.57 kg/m2 Bia Cao MD Work Phone: [facility] 12-26-2024 09:30-0500 Body weight 68.04 kg Bia Cao MD Work Phone: [facility] 12-26-2024 09:30-0500 Diastolic blood pressure 74 mm[Hg] Bia Cao MD Work Phone: [facility] 12-26-2024 09:30-0500 Heart rate 85 /min Bia Cao MD Work Phone: [facility] 12-26-2024 09:30-0500 Respiratory rate 18 /min Bia Cao MD Work Phone: [facility] 12-26-2024 09:30-0500 SaO2% (BldA) [Mass fraction] 97 % Bia Cao MD Work Phone: [facility] 12-26-2024 09:30-0500 Systolic blood pressure 122 mm[Hg] Bia Cao MD Work Phone: [facility] 12-19-2024 13:03-0500 Body height 160 cm Maria C Kramer MD Work Phone: [facility] 12-19-2024 13:03-0500 Body mass index (BMI) [Ratio] 26.39 kg/m2 Maria C Kramer MD Work Phone: [facility] 12-19-2024 13:03-0500 Body weight 67.59 kg Maria C Kramer MD Work Phone: [facility] 12-19-2024 13:03-0500 Diastolic blood pressure 87 mm[Hg] Maria C Kramer MD Work Phone: [facility] 12-19-2024 13:03-0500 Heart rate 86 /min Maria C Kramer MD Work Phone: [facility] 12-19-2024 13:03-0500 Systolic blood pressure 162 mm[Hg] Maria C Kramer MD Work Phone: [facility] 12-08-2024 11:49-0500 Body height 160 cm Bia Cao MD Work Phone: [facility] 12-08-2024 11:49-0500 Body mass index (BMI) [Ratio] 26.18 kg/m2 Bia Cao MD Work Phone: [facility] 12-08-2024 11:49-0500 Body weight 67.04 kg Bia Cao MD Work Phone: [facility] 12-08-2024 11:49-0500 Diastolic blood pressure 76 mm[Hg] Bia Cao MD Work Phone: [facility] 12-08-2024 11:49-0500 Heart rate 79 /min Bia Cao MD Work Phone: [facility] 12-08-2024 11:49-0500 SaO2% (BldA) [Mass fraction] 93 % Bia Cao MD Work Phone: [facility] 12-08-2024 11:49-0500 Systolic blood pressure 128 mm[Hg] Bia Cao MD Work Phone: [facility] 12-06-2024 11:48-0500 Body mass index (BMI) [Ratio] 26.55 kg/m2 John Johnson MD Work Phone: [facility] 12-06-2024 11:48-0500 Body weight 67.99 kg John Johnson MD Work Phone: [facility] 12-06-2024 11:48-0500 Diastolic blood pressure 70 mm[Hg] John Johnson MD Work Phone: [facility] 12-06-2024 11:48-0500 Heart rate 87 /min John Johnson MD Work Phone: [facility] 12-06-2024 11:48-0500 Systolic blood pressure 117 mm[Hg] John Johnson MD Work Phone: [facility] 10-30-2024 13:39-0500 Body height 160 cm Santo Meghan DPM Work Phone: [facility] 10-30-2024 13:39-0500 Body mass index (BMI) [Ratio] 26.18 kg/m2 Santo Pichardo DPM Work Phone: [facility] 10-30-2024 13:39-0500 Body weight 67.04 kg Santo Meghan DPM Work Phone: [facility] 09-26-2024 13:39-0500 Body mass index (BMI) [Ratio] 26.17 kg/m2 Rose Velasquez [employer] Work Phone: [facility] 09-26-2024 13:39-0500 Body weight 67 kg Rose Velasquez [employer] Work Phone: [facility] 09-26-2024 13:39-0500 Diastolic blood pressure 81 mm[Hg] Rose Velasquez [employer] Work Phone: [facility] 09-26-2024 13:39-0500 Heart rate 91 /min Rose Velasquez [employer] Work Phone: [facility] 09-26-2024 13:39-0500 SaO2% (BldA) [Mass fraction] 96 % Rose Velasquez [employer] Work Phone: [facility] 09-26-2024 13:39-0500 Systolic blood pressure 143 mm[Hg] Rose Velasquez [employer] Work Phone: [facility] 08-14-2024 15:57-0400 Body height 160 cm Bia Cao MD Work Phone: [facility] 08-14-2024 15:57-0400 Body mass index (BMI) [Ratio] 26.18 kg/m2 Bia Cao MD Work Phone: [facility] 08-14-2024 15:57-0400 Body weight 67.04 kg Bia Cao MD Work Phone: [facility] 08-14-2024 15:57-0400 Diastolic blood pressure 88 mm[Hg] Bia Cao MD Work Phone: [facility] 08-14-2024 15:57-0400 Heart rate 88 /min Bia Cao MD Work Phone: [facility] 08-14-2024 15:57-0400 SaO2% (BldA) [Mass fraction] 95 % Bia Cao MD Work Phone: [facility] 08-14-2024 15:57-0400 Systolic blood pressure 148 mm[Hg] Bia Cao MD Work Phone: [facility] 08-08-2024 11:40-0400 Body height 160 cm Bia Cao MD Work Phone: [facility] 08-08-2024 11:40-0400 Body mass index (BMI) [Ratio] 26.43 kg/m2 Bia Cao MD Work Phone: [facility] 08-08-2024 11:40-0400 Body weight 67.68 kg Bia Cao MD Work Phone: [facility] 08-08-2024 11:40-0400 Diastolic blood pressure 84 mm[Hg] Bia Cao MD Work Phone: [facility] 08-08-2024 11:40-0400 Heart rate 77 /min Bia Cao MD Work Phone: [facility] 08-08-2024 11:40-0400 Respiratory rate 20 /min Bia Cao MD Work Phone: [facility] 08-08-2024 11:40-0400 SaO2% (BldA) [Mass fraction] 97 % Bia Cao MD Work Phone: [facility] 08-08-2024 11:40-0400 Systolic blood pressure 136 mm[Hg] Bia Cao MD Work Phone: [facility] 07-10-2024 15:39-0400 Body height 160 cm Bia Cao MD Work Phone: [facility] 07-10-2024 15:39-0400 Body mass index (BMI) [Ratio] 27.1 kg/m2 Bia Cao MD Work Phone: [facility] 07-10-2024 15:39-0400 Body weight 69.4 kg Bia Cao MD Work Phone: [facility] 07-10-2024 15:39-0400 Diastolic blood pressure 72 mm[Hg] Bia Cao MD Work Phone: [facility] 07-10-2024 15:39-0400 Heart rate 90 /min Bia Cao MD Work Phone: [facility] 07-10-2024 15:39-0400 Respiratory rate 18 /min Bia Cao MD Work Phone: [facility] 07-10-2024 15:39-0400 SaO2% (BldA) [Mass fraction] 97 % Bia Cao MD Work Phone: [facility] 07-10-2024 15:39-0400 Systolic blood pressure 126 mm[Hg] Bia Cao MD Work Phone: [facility] 04-04-2024 11:29-0400 Body height 160 cm Mandi Hoover MD Work Phone: [facility] 04-04-2024 11:29-0400 Body mass index (BMI) [Ratio] 27.18 kg/m2 Mandi Hoover MD Work Phone: [facility] 04-04-2024 11:29-0400 Body temperature 97.7 [degF] Mandi Hoover MD Work Phone: [facility] 04-04-2024 11:29-0400 Body weight 69.6 kg Mandi Hoover MD Work Phone: [facility] 04-04-2024 11:29-0400 Diastolic blood pressure 65 mm[Hg] Mandi Hoover MD Work Phone: [facility] 04-04-2024 11:29-0400 Heart rate 80 /min Mandi Hoover MD Work Phone: [facility] 04-04-2024 11:29-0400 Respiratory rate 18 /min Mandi Hoover MD Work Phone: [facility] 04-04-2024 11:29-0400 SaO2% (BldA) [Mass fraction] 96 % Mandi Hoover MD Work Phone: [facility] 04-04-2024 11:29-0400 Systolic blood pressure 105 mm[Hg] Mandi Hoover MD Work Phone: [facility] Encounters Encounter Date Encounter Type Care Provider Facility Start: 08-17-2025 End: 08-17-2025 ambulatory Pfo Infusion Chair 5 Meggan Harrison [facility] Comment on above: Osteoporosis, unspec ified osteoporosis type, unspecified pathological fracture presence (Primary Dx) Start: 08-16-2025 ambulatory [facility] Start: 08-06-2025 End: 08-06-2025 ambulatory Adelfo Hansen MD Facility:[facility] Start: 07-25-2025 End: 07-25-2025 Refill Bia Cao MD Work Phone: [facility] Comment on above: Gastroesophageal ref lux disease without esophagitis Start: 07-20-2025 End: 07-20-2025 ambulatory Pfo Infusion Chair 1 Meggan Harrison [facility] Comment on above: Osteoporosis, unspec ified osteoporosis type, unspecified pathological fracture presence (Primary Dx) Start: 07-16-2025 ambulatory [facility] Start: 07-10-2025 End: 07-10-2025 Bamboo flowsheet Bia Cao MD Work Phone: [facility] Start: 07-10-2025 End: 07-10-2025 Bamboo flowsheet Bia Cao MD Work Phone: [facility] Start: 07-10-2025 End: 07-10-2025 Office outpatient visit 25 minutes Bia Cao MD Work Phone: [facility] Comment on above: Stage 3b chronic kid juwan disease (CKD) ([facility]); Major depressive disorder, single episode, in full remission ; Age-related osteoporosis without current pathological fracture ; Moderate persistent asthma without complication ([facility]); Diastolic dysfunction with chronic heart failure ([facility]); Chronic idiopathic constipation; Mild intermittent asthma without complication ([facility]); Interstitial pulmonary disease, unspecified ([facility]) Start: 07-10-2025 End: 07-10-2025 ambulatory BIA CAO Not Available Start: 07-02-2025 End: 07-02-2025 ambulatory Adelfo Hansen MD Facility:[facility] Start: 06-26-2025 End: 06-26-2025 ambulatory BIA CAO Not Available Start: 06-26-2025 End: 06-26-2025 Telephone encounter Bia Cao MD Work Phone: [facility] Start: 06-19-2025 End: 06-19-2025 Refill Tae Hardy NP Work Phone: [facility] Comment on above: Primary insomnia; Major depressive disorder, single episode, in full remission Start: 06-13-2025 End: 08-13-2025 Follow-up encounter John Johnson MD Work Phone: [facility] Comment on above: Calcium Start: 06-13-2025 End: 06-13-2025 Office outpatient visit 15 minutes Randall WILKINSON Work Phone: [facility] Comment on above: Kidney stones (Prima ry Dx); Urge incontinence Start: 06-13-2025 End: 06-13-2025 ambulatory RANDALL I [facility] Start: 06-13-2025 End: 06-13-2025 ambulatory Pfo Infusion Chair 1 Meggan Harrison [facility] - [facility] Comment on above: Osteoporosis, unspec ified osteoporosis type, unspecified pathological fracture presence (Primary Dx) Start: 06-12-2025 [facility] Start: 05-16-2025 End: 05-16-2025 ambulatory Pfo Infusion Chair 1 Meggan Harrison [facility] Oncology Comment on above: Osteoporosis, unspec ified osteoporosis type, unspecified pathological fracture presence (Primary Dx) Start: 05-15-2025 [facility] Start: 05-14-2025 End: 05-14-2025 ambulatory Adelfo Hansen MD Facility:[facility] Start: 05-08-2025 End: 05-08-2025 Telephone encounter Katerin Alvarado MD Work Phone: [facility] Comment on above: outgoing referral Start: 04-23-2025 End: 04-23-2025 ambulatory Adelfo Hansen MD Facility:[facility] Start: 04-18-2025 End: 04-18-2025 Office outpatient visit 25 minutes John Johnson MD Work Phone: [facility] Comment on above: Osteoporosis, unspec ified osteoporosis type, unspecified pathological fracture presence (Primary Dx); Hypothyroidism, unspecified type; Age-related osteoporosis without current pathological fracture; Vitamin D deficiency Start: 04-18-2025 [facility] Start: 04-18-2025 End: 04-18-2025 ambulatory Pfo Infusion Chair 1 Meggan Harrison [facility] Comment on above: Osteoporosis, unspec ified osteoporosis type, unspecified pathological fracture presence (Primary Dx) Start: 04-13-2025 [facility] Start: 04-09-2025 End: 04-09-2025 Bamboo flowsheet Bia [...] ambulatory Pfo Infusion Chair 1 Meggan Harrison [facility] - [facility] On[facility] Comment on above: Osteoporosis, unspec ified osteoporosis type, unspecified pathological fracture presence (Primary Dx) Start: 03-19-2025 End: 03-19-2025 ambulatory [facility] Start: 02-27-2025 End: 02-27-2025 Office outpatient visit 15 minutes Randall WILKINSON Work Phone: [facility] Comment on above: Urge incontinence (P rimary Dx); Frequent UTI Start: 02-27-2025 End: 02-27-2025 ambulatory RANDALL JAUREGUI [facility] Start: 02-19-2025 End: 02-19-2025 Orders Only Yoanna MAS Work Phone: [facility] Comment on above: Migraine without aur a and without status migrainosus, not intractable (Primary Dx); Essential tremor; Cervical radiculopathy; Bilateral occipital neuralgia Essential hypertensi on (CMS/HCC) (Primary Dx) Start: 02-16-2025 End: 02-16-2025 ambulatory Pfo Infusion Chair 1 Meggan Harrison [facility] - [facility] Comment on above: Osteoporosis, unspec ified osteoporosis type, unspecified pathological fracture presence (Primary Dx) Start: 02-14-2025 End: 02-14-2025 ambulatory JOHN [facility] Start: 02-13-2025 End: 02-13-2025 ambulatory BIA CAO Not Available Start: 02-12-2025 End: 02-12-2025 Telephone encounter Bia Cao MD Work Phone: [facility] Start: 02-12-2025 End: 02-12-2025 ambulatory [facility] Start: 02-12-2025 End: 02-12-2025 Office outpatient visit 15 minutes [facility] INSPECTOR AND [employer]ORTER-NURSE STAFF [employer] Work Phone: [facility] Comment on above: Migraine without aur a and without status migrainosus, not intractable (Primary Dx); Essential tremor; Psychophysiological insomnia Start: 02-09-2025 End: 02-09-2025 Telephone encounter Blanche Aviles [facility] Meggan Harrison [facility] Start: 02-08-2025 End: 02-08-2025 Orders Only Gladys Zambrano LPN [facility] Comment on above: Osteoporosis, unspec ified osteoporosis type, unspecified pathological fracture presence (Primary Dx) Start: 02-06-2025 End: 02-06-2025 ambulatory BIA CAO Not Available Start: 01-31-2025 End: 01-31-2025 Refill Bia Cao MD Work Phone: [facility] Comment on above: Stress incontinence of urine Start: 01-23-2025 End: 01-23-2025 ambulatory BIA CAO Not Available Start: 01-23-2025 End: 01-23-2025 Office outpatient visit 15 minutes iBa Cao MD Work Phone: [facility] Comment on above: Acute bronchitis, un specified organism (Primary Dx); Flank pain Start: 01-23-2025 End: 01-23-2025 Bamboo flowsheet Bia Cao MD Work Phone: [facility] Start: 01-23-2025 End: 01-23-2025 Bamboo flowsheet Bia Cao MD Work Phone: [facility] Start: 01-22-2025 ambulatory [facility] Start: 01-15-2025 End: 01-15-2025 Office [...] ambulatory Pfo Infusion Chair 1 Meggan Harrison [facility] - [facility] Comment on above: Osteoporosis, unspec ified osteoporosis type, unspecified pathological fracture presence (Primary Dx) Start: 01-12-2025 End: 01-12-2025 ambulatory [facility] Start: 01-11-2025 End: 01-11-2025 ambulatory Pfo Infusion Chair 1 Meggan Harrison [facility] Start: 01-09-2025 End: 01-09-2025 ambulatory KATERIN ALVARADO Not Available Start: 01-09-2025 End: 01-09-2025 Office outpatient new 45 minutes Katerin Alvarado MD Work Phone: [facility] Comment on above: Presbylarynges (Prim vipul Dx); Hoarse Start: 01-03-2025 End: 01-03-2025 Refill Bia Cao MD Work Phone: [facility] Comment on above: Mixed hyperlipidemia ([facility]); Anxiety Start: 01-01-2025 End: 01-01-2025 Patient encounter procedure Noms [facility] Fm Nurse [facility] Comment on above: Hematuria, unspecifi ed type Start: 01-01-2025 End: 01-01-2025 ambulatory BIA CAO Not Available Start: 01-01-2025 End: 01-01-2025 Telephone encounter Bia Cao MD Work Phone: [facility] Comment on above: Acute cystitis with hematuria (Primary Dx) Start: 12-29-2024 ambulatory BIA CAO [facility] Start: 12-26-2024 End: 12-26-2024 Bamboo flowsheet [...] depressive disorder, single episode, in full remission ([facility]); Fall, subsequent encounter; Gastroesophageal reflux disease without esophagitis Start: 12-25-2024 End: 12-25-2024 Telephone encounter Bia Cao MD Work Phone: [facility] Start: 12-23-2024 End: 12-23-2024 Emergency department patient visit BIA CAO [facility] Start: 12-22-2024 End: 12-22-2024 Orders Only John Johnson MD Work Phone: [facility] Comment on above: Osteoporosis, unspec ified osteoporosis type, unspecified pathological fracture presence (Primary Dx) Start: 12-19-2024 End: 12-19-2024 Office outpatient visit 15 minutes Maria C Kramer MD Work Phone: [facility] Comment on above: Urge incontinence (P rimary Dx) Start: 12-19-2024 End: 12-19-2024 ambulatory MARIA C KRAMER [facility] Start: 12-18-2024 End: 12-18-2024 ambulatory Adelfo Hansen MD Facility:[facility] Start: 12-12-2024 End: 12-12-2024 Refill Bia Cao [...] 25 minutes John Johnson MD Work Phone: [facility] Comment on above: Hypothyroidism, unsp ecified type (Primary Dx); Age-related osteoporosis without current pathological fracture; Vitamin D deficiency Start: 12-06-2024 End: 12-06-2024 Orders Only Gladysfacundo Zambrano LPN [facility] Comment on above: Osteoporosis, unspec ified osteoporosis type, unspecified pathological fracture presence (Primary Dx) Start: 11-29-2024 End: 11-29-2024 Refill Bia Cao MD Work Phone: [facility] Comment on above: Anemia, unspecified type (Primary Dx) Start: 11-28-2024 End: 11-28-[facility] Start: 11-20-2024 End: 11-20-2024 ambulatory Adelfo Hansen MD Facility:[facility] Start: 11-06-2024 End: 11-06-2024 Refill Bia Cao MD Work Phone: [facility] Comment on above: Hyperlipidemia, unsp ecified hyperlipidemia type (CMS/HCC) Start: 10-30-2024 End: 10-30-2024 Bamboo flowsheet Santo Christianson DPM Work Phone: [facility] Start: 10-30-2024 End: 10-30-2024 Bamboo flowsheet Santo Christianson DPM Work Phone: [facility] Start: 10-30-2024 End: 10-30-2024 Patient encounter procedure Santo Christianson DPM Work Phone: [facility] Comment on above: Dermatophytosis of n ail (Primary Dx); Dystrophic nail; Pain around toenail, right foot; Pain around toenail, left foot Start: 10-30-2024 End: 10-30-2024 ambulatory SANTO CHRISTIANSON Not Available Start: 10-04-2024 End: 10-06-2024 Telephone encounter Rose Velasquez APRN.CNP Work Phone: Count Includes [facility] Comment on above: Patient Question Start: 09-26-2024 End: 09-26-2024 ambulatory ROSE VELASQUEZ Facility:[facility] Start: 09-26-2024 End: 09-26-2024 Patient encounter procedure Rose Velasquez INSPECTOR [employer]TER.NURSE [employer]AFF [employer] Work Phone: Neurosurgery Comment on above: 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); Dizziness Start: 09-26-2024 End: 09-26-2024 ambulatory MANDI HOOVER Facility:[facility] Start: 09-26-2024 End: 09-26-2024 Subsequent hospital visit by physician Mri [facility] (Lg Bore/1.5t) Radiology MRI Comment on above: 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] Start: 09-04-2024 End: 09-04-2024 [facility] Start: 08-29-2024 End: 08-29-2024 ambulatory [facility] Start: 08-21-2024 End: 08-21-2024 ambulatory [facility] Start: 08-14-2024 End: 08-14-2024 Office outpatient visit [...] 08-08-2024 ambulatory BIA CAO Not Available Start: 07-14-2024 End: 07-14-2024 Orders Only Bia Cao MD Work Phone: [facility] Comment on above: Acute cystitis witho ut hematuria (Primary Dx) Start: 07-13-2024 End: 07-13-2024 ambulatory [facility] Start: 07-11-2024 End: [...] Orders Only Mandi gambino MD Work Phone: [facility] Comment on above: Intracranial meningi brandon (HCC) (Primary Dx); Benign neoplasm of meninges (HCC) Start: 04-04-2024 End: 04-04-2024 ambulatory MANDI HOOVER Facility:[facility] Start: 04-04-2024 End: 04-04-2024 Patient encounter procedure Mandi Hoover MD Work Phone: [facility] Includes [facility] [place] [facility] Comment on above: Intracranial meningi brandon (HCC) (Primary Dx); Sensorineural hearing loss (SNHL) of right ear, unspecified hearing status on contralateral side; Dizziness Start: 03-24-2024 Telephone encounter Neurology Provid er Neurology Comment on above: Received Outside Med [facility] Records (External referral to Neurological [place]/); triage; Nurse Triage Call; Appointment Start: 01-06-2024 End: 01-06-2024 ambulatory Ria Snyder [employer] Work Phone: [facility] Comment on above: General weakness (Pr imary Dx); History of falling Start: 01-04-2024 Bamboo flowsheet Ria Masters ht [employer] Work Phone: [facility] Start: 01-04-2024 Bamboo flowsheet Ria Masters ht [employer] Work Phone: [facility] Start: 01-04-2024 End: 01-04-2024 ambulatory Ria Snyder [employer] Work Phone: [facility] Comment on above: General weakness (Pr imary Dx); History of falling Start: 01-03-2024 Refill Bia Cao Adali D Work Phone: [facility] Comment on above: Mixed hyperlipidemia (CMS/HCC) (Primary Dx); Stress incontinence of urine Start: 12-30-2023 Chart abstracting Jonny Freitas gs PT Work Phone: [facility] Start: 12-23-2023 End: 12-23-2023 ambulatory Ria [place] [employer] Work Phone: [facility] Comment on above: General weakness (Pr imary Dx); History of falling Start: 10-12-2022 End: 10-12-2022 ambulatory [facility] Start: 09-28-2022 End: 09-28-2022 ambulatory [facility] Start: 05-16-2018 End: 05-16-2018 Ambulatory AUDREY HORN [facility] Start: 05-06-2018 End: 05-11-2018 Ambulatory LENNY PEDRAZA [facility] Start: 05-02-2018 Patient encounter status [facility]ietta Johnson MD [facility] Work Phone: Procedures Date Procedure Procedure Detail Performing Clinician Start: 06-13-2025 Follow-up visit Follow-up YOVANI JAUREGUI Start: 02-27-2025 Urnls dip stick/tabl et rgnt auto w/o microscopy Randall Jauregui PA Work Phone: Start: 02-12-2025 Adult depression scr eening assessment Yoanna Dorsey INSPECTOR AND SORTER-NURSE STAFF [employer]AL Work Phone: Start: 01-23-2025 Urnls dip stick/tabl [...] Diabetes Screening Diabetes Screenin [facility] Start: 06-13-2026 Tobacco Screening Tobacco Screening [facility] Start: 05-16-2026 Tobacco Screening Tobacco Screening [facility] Start: 04-18-2026 Tobacco Screening Tobacco Screening [facility] Start: 02-27-2026 Tobacco Screening Tobacco Screening [facility] Start: 02-26-2026 End: 02-26-2026 Patient encounter procedure 02/26/2026 1:00 PM EDT Office Visit [facility] [address] [place] [address] [address] [facility] [place] [address] Maria C Kramer MD [address] [place] [address] [facility] Start: 02-16-2026 Tobacco Screening [facility] Start: 02-12-2026 Depression Screening Depression Scre ening [facility] Start: 02-12-2026 Fall Risk Screening Fall Risk Screen ing [facility] Start: 02-12-2026 Tobacco Screening Tobacco Screening [facility] Start: 01-14-2026 End: 06-13-2026 XR Abdomen AP X-ray abdomen ap 1 view Imaging Routine Kidney stones Expected: 01/14/2026, Expires: 06/13/2026 [facility] Work Phone: Comment on above: Expected: 01/14/2026 , Expires: 06/13/2026 Start: 01-11-2026 Tobacco Screening Tobacco Screening [facility] Start: 12-19-2025 Tobacco Screening Tobacco Screening [facility] Start: 12-06-2025 Tobacco Screening Tobacco Screening [facility] Start: 11-07-2025 End: 11-07-2025 Patient encounter procedure 11/07/2025 1:40 PM EST Office Visit [place] [id number] [place] [phone] Bia Cao MD [address] [place], [place] [id number] [facility] Start: 09-21-2025 End: 09-21-2025 ambulatory 09/21/2025 1:00 PM EDT Infusion Meggan Hunter [facility] - [facility] Oncology [address] [place] [phone] Meggan Hunter [facility] Start: 08-17-2025 End: 08-17-2025 ambulatory 08/17/2025 1:00 PM EDT Infusion Meggan Hunter [facility] [address] [place] [phone] Meggan Hunter [facility] Start: 08-16-2025 End: 08-16-2025 Patient encounter procedure [facility] Start: 07-23-2025 COVID-19 Vaccine ( season) COVID-19 Vaccine () [facility] Start: 07-23-2025 Influenza vaccination [facility] Start: 07-13-2025 Depression Screening Depression Scre [facility] Start: 07-11-2025 End: 07-11-2025 ambulatory 07/11/2025 12:00 PM EDT Infusion Meggan L [facility] [address] [place] [address] Meggan Harrison [facility] Start: 07-10-2025 End: 07-10-2026 25-hydroxyvitamin D3 [Mass/volume] in Serum or Plasma Vitamin D 25 hydroxy Lab Routine Age-related osteoporosis without current pathological fracture Expected: 07/10/2025 (Approximate), Expires: 07/10/2026 [facility] Comment on above: Expected: 07/10/2025 (Approximate), Expires: 07/10/2026 Start: 07-10-2025 End: 07-10-2026 CBC W Auto Differential panel - Blood CBC and differential Lab Routine Stage 3b chronic kidney disease (CKD) ([facility]) Major depressive disorder, single episode, in full remission Expected: 07/10/2025 (Approximate), Expires: 07/10/2026 [facility] Work Phone: Comment on above: Expected: 07/10/2025 (Approximate), Expires: 07/10/2026 Start: 07-10-2025 End: 07-10-2026 Comprehensive metabolic 2000 panel - Serum or Plasma Comprehensive metabolic panel Lab Routine Stage 3b chronic kidney disease (CKD) ([facility]) Expected: 07/10/2025, Expires: 07/10/2026 [facility] Comment on above: Expected: 07/10/2025 , Expires: 07/10/2026 Start: 07-10-2025 End: 07-10-2025 Patient encounter procedure [facility] Comment on above: Arrived Start: 06-13-2025 End: 06-13-2025 Patient encounter procedure 06/13/2025 2:00 PM EDT Office Visit [facility] [address] [place] [address] [place] [address] Randall Jauregui I, PA [address] [place] [address] [facility] Start: 06-13-2025 End: 06-13-2025 ambulatory 06/13/2025 12:30 PM EDT Infusion Meggan Harrison [facility] [address] [place] [address] Meggan Harrison [facility] Start: 05-21-2025 Influenza vaccination Influenza Vacc ine (#1) [facility] Comment on above: Postponed from 07/23 (Other Medical Reasons) Start: 05-16-2025 End: 05-16-2025 ambulatory 05/16/2025 10:30 AM EDT Infusion Meggan Harrison [facility] [address] [place] [phone] Meggan Hunter [facility] Start: 04-26-2025 COVID-19 Vaccine ( season) COVID-19 Vaccine ( season) [facility] Start: 04-18-2025 End: 04-18-2026 DXA Skeletal system Views for bone density Dexa scan central skeletal Imaging Routine Osteoporosis, unspecified osteoporosis type, unspecified pathological fracture presence Expected: 04/18/2025, Expires: 04/18/2026 [facility]: Comment on above: Expected: 04/18/2025 , Expires: 04/18/2026 Start: 04-18-2025 End: 04-18-2025 Patient encounter procedure 04/18/2025 1:30 PM EDT [facility] [address] [place] [phone] John Johnson MD [address] [place] [address] [facility] Start: 04-18-2025 End: 04-18-2025 ambulatory 04/18/2025 10:30 AM EDT Infusion Meggan Harrison [facility] [address] [place] [address] Meggan Harrison [facility] Start: 04-09-2025 End: 04-09-2025 Patient encounter procedure [facility] Comment on above: Arrived Start: 04-09-2025 End: 04-09-2025 ambulatory 04/09/2025 1:00 PM EDT Infusion Meggan Harrison [facility] [address] [place] [phone] Meggan Harrison [facility] Start: 04-06-2025 End: 04-06-2025 Patient encounter procedure 04/06/2025 10:30 AM EDT Office Visit [facility] [address] [place] [address] [place] [phone] Corey Corbett, [address], [address], [address] [place], [place] [phone] [facility] Start: 03-12-2025 End: 03-12-2025 ambulatory 03/12/2025 1:30 PM EDT Infusion Meggan Harrison [facility] [address] [place] [phone] Meggan Harrison [facility] Start: 03-10-2025 Fall Risk Screening Fall Risk Screen [facility] Start: 03-09-2025 End: 03-09-2025 ambulatory 03/09/2025 1:00 PM EDT Infusion Meggan Harrison [facility] [address] [place] [phone] Meggan Harrison [facility] Start: 02-27-2025 End: 02-27-2025 Patient encounter procedure 02/27/2025 2:30 PM EDT Office Visit [facility] [address] [place] [phone] Randall Jauregui I, PA [address] [place] [address] [facility] Start: 02-16-2025 End: 02-16-2025 ambulatory 02/16/2025 1:00 PM EDT Infusion Meggan Harrison [facility] [address] [place] [phone] Meggan Harrison [facility] Start: 02-13-2025 End: 02-13-2025 Professional / ancillary services management 02/13/2025 2:00 PM EDT Ancillary Procedure [facility] [address] [phone] Start: 02-12-2025 End: 02-12-2025 Patient encounter procedure [facility] Start: 02-09-2025 End: 02-09-2025 ambulatory 02/09/2025 2:00 PM EDT Infusion Meggandaphne Harrison [facility] [address] [place] [phone] Meggan Harrison [facility] Start: 02-08-2025 End: 02-08-2025 ambulatory 02/08/2025 2:00 PM EDT Infusion Meggandaphne Harrison [facility] [address] [place] [phone] Meggan Hunter [facility] Start: 02-06-2025 End: 02-06-2025 Patient encounter procedure 02/06/2025 9:20 AM EDT Office Visit [facility] [address] [place] [phone] Bia Cao MD [address] [place], [place] [phone] [facility] Start: 01-23-2025 End: 01-23-2026 [...] [facility] [address] [place] [address] Yoanna Dorsey APRN-NURSE STAFF [employer] [address] [place] [place] [address] [facility] Start: 01-17-2025 End: 01-17-2025 Patient encounter procedure [facility] Start: 01-15-2025 End: 01-15-2025 Patient encounter procedure 01/15/2025 2:20 PM EST Office Visit [facility] [address] [place] [address] Bia Cao MD [address] [place], [place] [phone] Arrived [facility] Comment on above: Arrived Start: 01-12-2025 End: 01-12-2025 ambulatory 01/12/2025 2:20 PM EST Infusion Meggan Harrison [facility] [address] [place] [phone] Meggan Harrison [facility] Start: 01-09-2025 End: 01-09-2025 Patient encounter procedure 01/09/2025 1:40 PM EST Office Visit [facility] [address] [facility] [address] [place] [phone] Katerin Alvarado MD 112 [facility] [address] [place] [address] [facility] Start: 01-01-2025 End: 01-01-2026 Bacteria identified in Urine by Culture Urine culture (clean catch) Microbiology Routine Hematuria, unspecified type Expected: 01/01/2025 (Approximate), Expires: 01/01/2026 [facility] Work Phone: Comment on above: Expected: 01/01/2025 (Approximate), Expires: 01/01/2026 Start: 01-01-2025 End: 01-01-2025 Patient encounter procedure 01/01/2025 1:30 PM EST Office Visit [facility] [address] [place] [phone] [facility] Start: 12-26-2024 End: 12-26-2024 Patient encounter procedure 12/26/2024 9:20 AM EST Office Visit [facility] [address] [place] [phone] Bia Cao MD [address] [place], [place] [phone] [facility] Start: 12-19-2024 End: 12-19-2024 Patient encounter procedure 12/19/2024 12:45 PM EST Office Visit [facility] [address] [place] [address] [place] [phone] Maria C Kramer MD [address] [place] [address] [facility] Start: 12-08-2024 End: 12-08-2024 Patient encounter procedure 12/08/2024 11:40 AM EST Office Visit [facility] [address] [place] [phone] Bia Cao MD [address] [facility] [place] [address] [facility] Start: 12-06-2024 Medicare Annual Well ness (AWV) Medicare Annual Wellness (AWV) [facility] Start: 10-30-2024 End: 10-30-2024 Patient encounter procedure 10/30/2024 1:45 PM EST Office Visit [facility] [address] [place] [phone] Santo Christianson, DPM [address] [place], [place] [phone] Arrived [facility] Comment on above: Arrived Start: 08-28-2024 End: 06-08-2025 MR Brain WO and W contrast IV MRI BRAIN WO/W IVCON Radiology Routine Benign neoplasm of meninges (HCC) Expected: 08/28/2024 (Approximate), Expires: 06/08/2025 [facility] Work Phone: Comment on above: Expected: 08/28/2024 (Approximate), Expires: 06/08/2025 Start: 08-14-2024 End: 08-14-2024 Patient encounter procedure 08/14/2024 4:00 PM EDT Office Visit [facility] [address] [place] [phone] Bia Cao MD [address] [place] [address] Arrived [facility] Comment on above: Arrived Start: 08-08-2024 End: 08-08-2024 Patient encounter procedure 08/08/2024 11:40 AM EDT Office Visit [facility] [address] [facility] [place] [phone] Bia Cao MD [address] [place] [address] Arrived [facility] Comment on above: Arrived Start: 08-04-2024 End: 08-04-2024 Patient encounter procedure 08/04/2024 11:00 AM EDT Office Visit [facility] [address] [facility] [place] [phone] Bia Cao MD [address] [facility] [place] [address] [facility] Start: 07-23-2024 Covid-19 Vaccine ( season) Covid-19 Vaccine () [facility] Start: 07-23-2024 Influenza vaccination [facility] Start: 07-10-2024 End: 07-10-2024 Patient encounter procedure 07/10/2024 3:40 PM EDT Office Visit [facility] [address] [facility] [place] [phone] Bia Cao MD [address] [place] [address] Arrived [facility] Comment on above: Arrived Start: 07-10-2024 End: 07-10-2025 Bacteria identified in Urine by Culture Urine culture (clean catch) Microbiology Routine Dysuria Expected: 07/10/2024 (Approximate), Expires: 07/10/2025 [facility] Work Phone: Comment on above: Expected: 07/10/2024 (Approximate), Expires: 07/10/2025 Start: 07-10-2024 End: 07-10-2025 Urinalysis complete panel - Urine Urinalysis with reflex microscopic (clean catch) Lab Routine Dysuria Expected: 07/10/2024 (Approximate), Expires: 07/10/2025 [facility] Comment on above: Expected: 07/10/2024 (Approximate), Expires: 07/10/2025 Start: 05-21-2024 Influenza vaccination Influenza Vacc ine (#1) [facility] Comment on above: Postponed from 07/23 (Patient Refused) Start: 04-04-2024 End: 04-04-2024 Patient encounter procedure 04/04/2024 10:30 AM EDT Office Visit Count Includes [facility] [address] [place] [address] Mandi Hoover MD [address] [place] [address] Time Frame: First available Count Includes [facility] [place] Comment on above: Time Frame: First av ailable Start: 04-03-2024 End: 04-03-2024 Patient encounter procedure 04/03/2024 11:20 AM EDT Office Visit [facility] [address] [place] [phone] Bia Cao MD [address] [place], [place] [phone] [facility] Start: 01-20-2024 End: 01-20-2024 ambulatory 01/20/2024 11:00 AM EST Treatment [facility] [address] [place] [phone] Jonny Salazar, PT [address] [place] [address] [facility] Start: 01-18-2024 End: 01-18-2024 ambulatory 01/18/2024 11:30 AM EST Treatment [facility] [address] [place] [phone] Ria Snyder, SPINNING FRAME CHANGER [address] [place] [address] [facility] Start: 01-14-2024 End: 01-14-2024 ambulatory 01/14/2024 1:00 PM EST Treatment [facility] [address] [place] [phone] Ria Snyder, SP[employer]ING FR[employer] CH[employer]ER [address] [place] [address] [facility] Start: 01-12-2024 End: 01-12-2024 ambulatory 01/12/2024 12:30 PM EST Treatment [facility] [address] [place] [phone] Ria Snyder, SP[employer]NING FR[employer] CHANGER [address] [place] [address] [facility] Start: 01-06-2024 End: 01-06-2024 ambulatory [facility] Start: 01-04-2024 End: 01-04-2024 ambulatory 01/04/2024 11:30 AM EST Treatment [facility] [address] [place] [phone] Ria Snyder, SPINNING FRAME CHANGER [address] [place] [address] [facility] Start: 12-31-2023 End: 12-31-2023 ambulatory 12/31/2023 10:00 AM EST Treatment [facility] [address] [place] [address] Ria Snyder, SPINNING FR[employer] CHANGER [address] [place] [address] [facility] Start: 12-30-2023 End: 12-30-2023 ambulatory 12/30/2023 11:30 AM EST Treatment [facility] [address] [place] [address] Jonny Salazar, PT [address] [place] [address] [facility] Start: 12-28-2023 End: 12-28-2023 ambulatory 12/28/2023 11:30 AM EST Treatment [facility] [address] [place] [phone] Ria Snyder, SPINNING FR[employer] CHANGER [address] [place] [address] [facility] Start: 11-22-2023 Advance Directive Discussion Advance Directive Discussion [facility] Start: 11-22-2023 Behavioral Health Screening Behavioral Health Screening [facility] Start: 07-23-2023 Covid-19 Vaccine ( season) Covid-19 Vaccine ( season) [facility] Start: 08-21-2021 DTaP,Tdap and Td Vaccines (2 - Td or Tdap) DTaP,Tdap and Td Vaccines (2 - Td or Tdap) [facility] Start: 2020 RSV Vaccine (1 - 1-d ose 75+ series) RSV Vaccine (1 - 1-dose 75+ series) [facility] Start: 08-22-2011 Urine microalbumin profile DTaP,Tdap,Td Vaccine (1 - Tdap) [facility] Start: 01-17-2010 Administration of varicella zoster vaccine Zoster (Shingles) Vaccine (2 of 3) [facility] Start: 2005 RSV Vaccine (1 - 1-d ose 60+ series) RSV Vaccine (1 - 1-dose 60+ series) [facility] Start: 1995 Shingrix Vaccine (1 of 2) Shingrix Vaccine (1 of 2) [facility] Start: 1963 Anxiety Screening Anxiety Screening [facility] Start: 1963 [facility] Hepatitis C screening Hepatitis C [facility] Bacteria identified in Urine by Culture Urine culture (clean catch) Microbiology Routine Urinary frequency 12/08/2024 12:28 PM EST [facility] Work Phone: End: 12-22-2025 Calcium [Mass/volume] in Serum or Plasma Calcium Lab Routine Osteoporosis, unspecified osteoporosis type, unspecified pathological fracture presence every 3 months for 4 Occurrences starting 12/22/2024 until 12/22/2025 [facility] Work Phone: Comment on above: every 3 months for 4 Occurrences starting 12/22/2024 until 12/22/2025 End: 02-08-2026 Calcium [Mass/volume] in Serum or Plasma Calcium Lab Routine Osteoporosis, unspecified osteoporosis type, unspecified pathological fracture presence MONTHLY for 12 Occurrences starting 02/08/2025 until 02/08/2026 [facility] Work Phone: Comment on above: MONTHLY for 12 Occur rences starting 02/08/2025 until 02/08/2026 End: 10-26-2025 MR Brain WO and W contrast IV MRI BRAIN WO/W IVCON Radiology Routine Benign neoplasm of meninges (HCC) 1 Occurrences starting 09/26/2024 until 10/26/2025 [facility] Work Phone: Comment on above: 1 Occurrences starti ng 09/26/2024 until 10/26/2025 Immunizations Immunization Date Immunization Notes Care Provider Frank seymour 10-26-2024 RSV, recombinant, protein subunit RSVpreF, adjuvant reconstitu, 120mcg/0.5mL, PF (Arexvy) Santo Christianson DPM Work Phone: [facility] 03-12-2021 COVID-19, mRNA, LNP- S, PF, 100mcg/0.5mL Dose John Johnson MD Work Phone: [facility] 03-11-2021 Moderna SARS-CoV-2 Vaccination Ria Snyder [employer]ER Work Phone: [facility] 02-12-2021 COVID-19, mRNA, LNP- S, PF, 100mcg/0.5mL Dose John Johnson MD Work Phone: [facility] 02-11-2021 Moderna SARS-CoV-2 Vaccination Ria Snyder [employer]ER Work Phone: [facility] 11-12-2020 pneumococcal conjuga te vaccine, 13 valent Ria Snyder [employer] Work Phone: [facility] 09-17-2020 influenza, high dose seasonal, preservative-free Ria Snyder [employer] Work Phone: [facility] 09-17-2020 Seasonal, quadrivale nt, recombinant, injectable influenza vaccine, preservative free John Johnson MD Work Phone: [facility] 09-17-2020 influenza virus vacc ine, unspecified formulation Ria Snyder [employer] Work Phone: [facility] 08-30-2019 Seasonal, quadrivale nt, recombinant, injectable influenza vaccine, preservative free Ria Snyder [employer] Work Phone: [facility] 08-29-2018 influenza, injectabl e, quadrivalent, preservative free Ria Snyder [employer]ING [employer]ER Work Phone: [facility] 08-22-2015 influenza, seasonal, injectable, preservative free Ria Snyder [employer]ER Work Phone: [facility] 08-13-2015 pneumococcal polysaccharide vaccine, 23 valent Ria Snyder [employer]ER Work Phone: [facility] 08-21-2011 tetanus and diphther ia toxoids, adsorbed, preservative free, for adult use (5 Lf of tetanus toxoid and 2 Lf of diphtheria toxoid) Ria Snyder [employer]ER Work Phone: [facility] 11-22-2009 zoster vaccine, live Greeulae n Snyder [employer]ER Work Phone: [facility] 11-22-2009 zoster vaccine, unspecified formulation John Johnson MD Work Phone: [facility] 08-31-2003 pneumococcal polysaccharide vaccine, 23 valent Bia Cao MD Work Phone: [facility] Payers Date Payer Category Payer Medicaid [employer] MED[employer]ARE A DVANTAGE [id number] 2023 Medicare [id number] 2022 Private Health Insurance 2021 Medicare HMO [employer] MEDICARE [id number] 2021 Medicare [id number] 2014 Medicare [id number] 1945 Unknown [id number] 2.16840.1.985014.3.579.2. 175 1945 Unknown [id number] 2.840.1.146608.3.579.2. 175 1945 Unknown [id number] 2.840.1.868357.3.579.2. 1285 1945 Unknown [id number] 2.0.1.196372.3.579.2. 1285 1945 Unknown [id number] 2.16840.1.135912.3.579.2. 1285 1945 Unknown [id number] 2.16840.1.614698.3.579.2. 1285 1945 Unknown [id number] 2.16840.1.623378.3.579.2. 1285 1945 Unknown [id number] 2.16840.1.724412.3.579.2. 1285 1945 Unknown [id number] 2.16840.1.426916.3.579.2. 1286 -08194 Unknown [id number] 2.840.1.425197.3.579.2. 1286 -194 Unknown [id number] 2.840.1.714785.3.579.2. 1259 -194 Unknown [id number] 2.840.1.428417.3.579.2. 1259 -08194 Unknown [id number] 2.840.1.658314.3.579.2. 1259 -194 Unknown [id number] .840.1.970559.3.579.2. 1259 -194 Unknown [id number] .840.1.137529.3.579.2. 1259 -194 Unknown [id number] .840.1.234175.3.579.2. 1259 -194 Unknown [id number] 840.1.701233.3.579.2. 1259 -194 Unknown [id number] .0.1.432275.3.579.2. 1259 -194 Unknown [id number] 840.1.845245.3.579.2. 1259 -194 Unknown [id number] .840.1.171345.3.579.2. 1259 -194 Unknown [id number] 840.1.414426.3.579.2. 1259 -194 Unknown [id number] .840.1.503449.3.579.2. 1259 -194 Unknown [id number] 2.840.1.419846.3.579.2. 1259 -08194 Unknown [id number] .840.1.853514.3.579.2. 1259 1945 Unknown [id number] 2.16.840.1.778758.3.579.2. 1945 Unknown [id number] 2.16.840.1.461781.3.579.2. 1945 Unknown [id number] 2.16840.1.986442.3.579.2. 1945 Unknown [id number] 2.16840.1.299530.3.579.2. 1945 Unknown [id number] 2.16840.1.918368.3.579.2. 1945 Unknown [id number] 2.16840.1.546058.3.579.2. 1945 Unknown [id number] 2.0.1.736258.3.579.2. 1945 Unknown [id number] 2.840.1.535049.3.579.2. 1945 Unknown [id number] 2.840.1.307983.3.579.2. 1285 1945 Unknown [id number] 2.840.1.137162.3.579.2. 1285 1945 Unknown [id number] 2.0.1.772619.3.579.2. 1285 1945 Unknown [id number] 2.840.1.339803.3.579.2. 1285 1945 Unknown [id number] 2.16840.1.316242.3.579.2. 1285 1945 Unknown [id number] 2.16840.1.949477.3.579.2. 1285 1945 Unknown [id number] 2.16840.1.071023.3.579.2. 1285 1945 Unknown [id number] 2.16.840.1.351014.3.579.2. 1286 1945 Unknown [id number] 2.16840.1.056667.3.579.2. 128 1945 Unknown [id number] 2.16.840.1.925397.3.579.2. 1285 1945 Unknown [id number] 2.840.1.588374.3.579.2. 1285 1945 Unknown [id number] 2.840.1.057382.3.579.2. 128 1945 Unknown [id number] 2.840.1.573295.3.579.2. 1285 1945 Unknown [id number] 2.840.1.118829.3.579.2. 1285 1945 Unknown [id number] 2.840.1.844855.3.579.2. 1285 1945 Unknown [id number] 2.840.1.585813.3.579.2. 128 1945 Unknown [id number] 2.840.1.717486.3.579.2. 128 1945 Unknown [id number] 2.840.1.795085.3.579.2. 1285 1945 Unknown [id number] 2.840.1.143266.3.579.2. 128 1945 Unknown [id number] 2.840.1.839957.3.579.2. 1285 1945 Unknown [id number] 2.840.1.235592.3.579.2. 1285 1945 Unknown [id number] 2.840.1.207287.3.579.2. 1286 Social History Date Type Detail Facility Start: 06-04-2023 End: 11-29-2023 Tobacco smoking status NHIS Never smoked tobacco [facility] Start: 06-04-2023 End: 11-29-2023 Tobacco use and exposure Smokeless tobacco non-user [facility] Start: 12-07-2023 Alcohol intake Current drinker of alcohol (finding) [facility] Start: 12-03-2020 End: 12-07-2023 History of Social function [facility] Start: 12-03-2020 End: 12-07-2023 Tobacco use panel [facility] Start: 05-04-2023 Alcohol Comment caffeine: occasional [facility] Start: 1945 Sex Assigned At Not on file [facility] Start: 01-27-2018 End: 07-20-2025 Alcohol intake Current non-drinker of alcohol (finding) [facility] National Score (1-10 0), lower number is lower risk Not on file [facility] Start: 07-10-2024 End: 07-10-2025 Alcoholic beverage intake Ex-drinker (finding) [facility] Do you belong to any clubs or organizations such as christian groups, unions, fraternal or athletic groups, or [...] [OSQ] Rather much [facility] (I/We) worried whetrey er (my/our) food would run out before (I/we) got money to buy more. Never true [facility] Start: 04-03-2024 Tobacco Comment Second hand smoke from Father [facility] History of tobacco use Passive smoker [facility] Start: 1945 Sex assigned at Female [facility] Start: 06-27-2015 Sex Female (finding) [facility] Start: 05-22-2021 Gender identity Identifies as female gender (finding) [facility] Start: 05-22-2021 Sexual orientation Heterosexual (finding) [facility] Medical Equipment Procedure Code Equipment Code Equipment Origin al Text Equipment Identifier Dates Patch Dura 1x1in Drmtrx-[place] + Clgn Rgnrt Membr Strl - [id number] Start: 07-03-2021 Goals Date Patient Goal Desired Activity /State Personal health goal Personal health goal Comment on above: Formatting of this n ote might be different from the original. Evaluation of progress towards goal: safe transition from hospital to home with support of her friends/neighbors Clinical Notes 03-24-2024 to 08-17-2025 Shaye Palmer RN - 08/17/2025 1:00 PM EDTTelephone Encounter - Bia Cao MD - 07/25/2025 9:59 AM EDTTelephone Encounter - Bia Cao MD - 07/25/2025 9:59 AM EDTPatient Instructions Note Date & Type Note Facility 08-17-2025 History of Present illness Narrative Patient presents for Evenity injection as scheduled. Calcium reviewed with patient, WNL at 9.4 on 08/16/25; medication indicated Injection administered in Left upper arm SQ tissue without issue and Pt tolerates well Sites covered with band aids. Next injection scheduled at front attendant Patient discharged in stable condition to private vehicle in care of her granddaughter. documented in this encounter [facility] 07-25-2025 Telephone encounter Note Approvals with refills [facility] 07-25-2025 Miscellaneous Notes Approvals with refills documented in this encounter [facility] 07-20-2025 History of Present illness Narrative Patient presents for Evenity injection as scheduled. Calcium reviewed with patient, WNL at 9.4, medication indicated Injection administered in Right upper arm SQ tissue without issue and Pt tolerates well Sites covered with band aids. Next injection scheduled at front attendant Patient discharged in stable condition to private vehicle in care of her granddaughter. documented in this encounter [facility] 07-10-2025 History of Present illness Narrative Associated Problem(s): Stage 3b chronic kidney disease (CKD) ([facility]) Orders: CBC and differential; Future Comprehensive metabolic panel; Future Associated Problem(s): Major depressive disorder, single episode, in full remission Orders: CBC and differential; Future Associated Problem(s): Age-related osteoporosis without current pathological fracture Orders: Vitamin D 25 hydroxy; Future Associated Problem(s): Asthma ([facility]) stable Associated Problem(s): Chronic idiopathic constipation [...] levels due to family issues. 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 Her hide inspector and sorter is receiving counseling, but the situation remains challenging. Social History: Diet: She consumes dairy products. Living Condition: Lives with a hide inspector and sorter who recently lost a baby. Objective BP [...] Plan Stage 3b chronic kidney disease (CKD) ([facility]) Orders: CBC and differential; Future Comprehensive [...] in 4 months. documented in this encounter [facility] 06-26-2025 Telephone encounter Note Angela asking if she can stop in and leave a urine spc. - she has UTI symptoms - she said Dr Cao usually allows her to just come in and leave a urine spc . Please call and let her know when to come in [phone] [facility] 06-26-2025 Miscellaneous Notes Angela asking if she can stop in and leave a urine spc. - she has UTI symptoms - she said Dr Cao usually allows her to just come in and leave a urine spc . Please call and let her know when to come in [phone] documented in this encounter [facility] 06-13-2025 Evaluation + Plan note Associated Problem(s): Urge incontinence We will see her back in January with a KUB. She will call sooner if she has any problems. If she suspects an infection, she can contact the office so that we can have her stop at the lab for culture [facility] 06-13-2025 Miscellaneous Notes Associated Problem(s): Urge incontinence We will see her back in January with a KUB. She will call sooner if she has any problems. If she suspects an infection, she can contact the office so that we can have her stop at the lab for culture documented in this encounter [facility] 06-13-2025 History of Present illness Narrative Images from the original note were not included. [address] [place] [address] A [facility] [id number] Patient: Angela Ruth Date of : 1945 [...] concerns. Summary of old records: Notes from sc 02/27/25: The Myrbetriq was too expensive so [...] (benign paroxysmal positional vertigo) Brain tumor (benign) ([facility]) Breast disorder 4 biopsies Bronchitis 01/01/2017 Cancer ([facility]) Basal cell Carpal tunnel syndrome Cataract [...] 07/07/2018 Performed by Alexander Leach MD at [facility] ENDOSCOPY COSMETIC SURGERY 1984 DISCECTOMY 1989 Partial L4-5 EGD 2001 EYE SURGERY 2014 FOOT SURGERY 2009 Reattachment of tendon left foot with bone graft HIP SURGERY 2004 Excision of bursa left hip HYSTERECTOMY 1984 INJECTION BLOCK EPIDURAL STEROID LUMBAR/SACRAL Left L 5,1 NR Left 12/20/2020 Performed by Shubham Clifton MD at [facility] BLOCK NERVE MEDIAL BRANCH right C 4/5,5/6 Right 05/22/2022 Performed by Shubham Clifton MD at [facility] BLOCK NERVE MEDIAL BRANCH right C 4/5,5/6 Right 04/17/2022 Performed by Shubham Clifton MD at [facility] INJECTION CAUDAL EPIDURAL WITH CATHETER, STEROID N/A 03/07/2018 Performed by Shubham Clifton MD at [facility] LARGE JOINT BURSA: bilat hip [...] 01/19/2020 Performed by Shubham Clifton MD at [facility] INJECTION SI JOINT Bilateral 04/09/2017 Performed by Shubham Clifton MD at [facility] INJECTION SI JOINT Bilateral SI [...] 01/08/2023 Performed by Shubham Clifton MD at [facility] INJECTION SPINE TRANSFORAMINAL Right L 5,1 Nroot Right 11/27/2022 Performed by Shubham Clifton MD at [facility] BERRIEN STEROID EPI 1 WITH SEDATION Left 5,1 NR Left 05/08/2019 Performed by Shubham Clifton MD at [facility] KNEE ARTHROSCOPY 2013 KNEE SURGERY 2010 2013 Arthroscopy bilateral/repair meniscus right X2, left X1 LAMINECTOMY LUMBAR FORAMENOTOMY MULTI LEVEL L1-2 RIGHT/L2-3 BILATERAL/LUMBAR DRAIN INSERTION N/A 07/03/2021 Performed by Corey Chacon MD at [facility] LAPAROTOMY OOPHERECTOMY Bilateral 1983 LUMBAR DISCECTOMY LUMBAR FUSION 2009 L3-5 LUMBAR LAMINECTOMY MICRO LUMBAR DISCECTOMY L5-S1/ FORAMINOTOMY L5-S1 Left 01/14/2017 Performed by Corey Chacon MD at [facility] OOPHORECTOMY 1982 OTHER SURGICAL HISTORY Knee Arthroscopy With Medial Meniscus Repair OTHER SURGICAL HISTORY Spinal Diskectomy RADIO FREQUENCY ABLATION Left L 4/5, 5/1 Left 12/02/2018 Performed by Shubham Clifton MD at [facility] RADIO FREQUENCY ABLATION Left L 4/5, 5/ Left 07/30/2017 Performed by Shubham Clifton MD at [facility] RADIO FREQUENCY ABLATION Left SI joint Left 03/31/2019 Performed by Shubham Clifton MD at [facility] RADIO FREQUENCY ABLATION Right L2/3, 3/4 Right 03/29/2020 Performed by Shubham Clifton MD at [facility] RADIOFREQUENCY ABLATION SPINAL Left Si joint Left 05/07/2017 Performed by Shubham Clifton MD at [facility] RADIOFREQUENCY ABLATION SPINAL Right C 4/5,5/6 Right 06/26/2022 Performed by Shubham Clifton MD at [facility] RADIOFREQUENCY ABLATION SPINAL RIGHT SI JOINT Right 05/21/2017 Performed by Shubham Clifton MD at [facility] RELEASE CARPAL TUNNEL Left 11/04/2021 Performed by Corey Chacon MD at [facility] SHOULDER [...] mg total) by mouth in the morning. tnehtmu-kpqnxdaipxong-oqyrleev (EXCEDRIN MIGRAINE) 250-250-65 mg per tablet Take [...] hospitalization) Allergies: Indocin [indomethacin], Lincocin [lincomycin], Lincosamides, Xecjcvzs-7-jd1 antimigraine agents, Adhesive, Eggshell membrane, Influenza virus [...] caffeine as well as addressing constipation with yuxe-iii-lgpwhft agents. If no improvement can add beta [...] Gallagher 06/13/25 1422 documented in this encounter [facility] 06-13-2025 History of Present illness Narrative [...] of her granddaughter. documented in this encounter [facility] 05-16-2025 History of Present illness Narrative [...] of her granddaughter. documented in this encounter [facility] 05-08-2025 [facility]25 Miscellaneous Notes prn Called pt to see if she is planning on scheduling with doctor regarding outgoing referral, pt said no, she does not want to schedule any appts. documented in this encounter [facility] 05-08-2025 Telephone encounter Note Called pt to see if she is planning on scheduling with doctor regarding outgoing referral, pt said no, she does not want to schedule any appts. [facility] 04-18-2025 History of Present illness Narrative Reason [...] (benign paroxysmal positional vertigo) Brain tumor (benign) ([facility]) Breast disorder 4 biopsies Bronchitis 01/01/2017 Cancer ([facility]) Basal cell Carpal tunnel syndrome Cataract [...] Surgery BREAST BIOPSY 1979, 1999 BREAST SURGERY 1982 2002 Biopsy four times CHOLECYSTECTOMY 2001 COLONOSCOPY w/ bx N/A 07/07/2018 Performed by Alexander Leach MD at [facility] ENDOSCOPY COSMETIC SURGERY 1985 DISCECTOMY 1990 Partial L4-5 EGD 2001 EYE SURGERY 2015 FOOT SURGERY 2009 Reattachment of tendon left foot with bone graft HIP SURGERY 2004 Excision of bursa left hip HYSTERECTOMY 1983 INJECTION BLOCK EPIDURAL STEROID LUMBAR/SACRAL Left L 5,1 NR Left 12/20/2020 Performed by Shubham Clifton MD at [facility] INJECTION BLOCK NERVE MEDIAL BRANCH right C 4/5,5/6 Right 05/22/2022 Performed by Shubham Clifton MD at [facility] INJECTION BLOCK NERVE MEDIAL BRANCH right C 4/5,5/6 Right 04/17/2022 Performed by Shubham Clifton MD at [facility] CAUDAL EPIDURAL WITH CATHETER, STEROID N/A 03/07/2018 Performed by Shubham Clifton MD at [facility] LARGE JOINT BURSA: bilat hip Bilateral 12/10/2017 [...] 01/19/2020 Performed by Shubham Clifton MD at [facility] INJECTION SI JOINT Bilateral 04/09/2017 Performed by Shubham Clifton MD at [facility] SI JOINT Bilateral SI Joint Bilateral 05/31/2020 Performed by Shubham Cliftno MD at [facility] INJECTION SI JOINT Left SI JOint Left 01/06/2019 Performed by Shubham Clifton MD at [facility] INJECTION SI JOINT Right SI Joint Right 06/09/2019 Performed by Shubham Clifton MD at [facility] SPINE TRANSFORAMINAL Left L 4, 5 NR Left 09/24/2017 Performed by Shubham Clifton MD at [facility] INJECTION SPINE TRANSFORAMINAL Left L 5,1 Nroot Left 01/08/2023 Performed by Shubham Clifton MD at [facility] INJECTION SPINE TRANSFORAMINAL Right L 5,1 Nroot Right 11/27/2022 Performed by Shubham Clifton MD at [facility] STEROID EPI 1 WITH SEDATION Left 5,1 NR Left 05/08/2019 Performed by Shubham Clifton MD at [facility] KNEE ARTHROSCOPY 2013 KNEE SURGERY 2010 2013 Arthroscopy bilateral/repair meniscus right X2, left X1 LAMINECTOMY LUMBAR FORAMENOTOMY MULTI LEVEL L1-2 RIGHT/L2-3 BILATERAL/LUMBAR DRAIN INSERTION N/A 07/03/2021 Performed by Corey Chacon MD at [facility] LAPAROTOMY OOPHERECTOMY Bilateral 1984 LUMBAR DISCECTOMY LUMBAR FUSION 2010 L3-5 LUMBAR LAMINECTOMY MICRO LUMBAR DISCECTOMY L5-S1/ FORAMINOTOMY L5-S1 Left 01/14/2017 Performed by Corey Chacon MD at [facility] OOPHORECTOMY 1982 OTHER SURGICAL HISTORY Knee Arthroscopy With Medial Meniscus Repair OTHER SURGICAL HISTORY Spinal Diskectomy RADIO FREQUENCY ABLATION Left L 4/5, 5/1 Left 12/02/2018 Performed by Shubham Clifton MD at [facility] RADIO FREQUENCY ABLATION Left L 4/5, 5/1 Left 07/30/2017 Performed by Shubham Clifton MD at [facility] RADIO FREQUENCY ABLATION Left SI joint Left 03/31/2019 Performed by Shubham Clifton MD at [facility] RADIO FREQUENCY ABLATION Right L2/3, 3/4 Right 03/29/2020 Performed by Shubham Clifton MD at [facility] RADIOFREQUENCY ABLATION SPINAL Left Si joint Left 05/07/2017 Performed by Shubham Clifton MD at [facility] RADIOFREQUENCY ABLATION SPINAL Right C 4/5,5/6 Right 06/26/2022 Performed by Shubham Clifton MD at [facility] RADIOFREQUENCY ABLATION SPINAL RIGHT SI JOINT Right 05/21/2017 Performed by Shubham Clifton MD at [facility] RELEASE CARPAL TUNNEL Left 11/04/2021 Performed by Corey Chacon MD at [facility] SHOULDER [...] mouth in the morning., Disp: , Rfl: uatzxfr-unoqaorlhyqba-frprnomu (EXCEDRIN MIGRAINE) 250-250-65 mg per tablet, Take [...] Hypotension fainting Lincocin [Lincomycin] Anaphylaxis Lincosamides Anaphylaxis Wzgvhcbt-[id number] Antimigraine Agents History of cardiovascular and cerebrovascular [...] months with doctor John Johnson MD, MPH, [facility] [address] [address] Dept: [phone] FAX: [phone] documented in this encounter [facility] 04-18-2025 Instructions John Johnson MD - 04/18/2025 1:30 PM EDT December 08, 2025 DEXA documented in this encounter [facility] 04-18-2025 History of Present illness Narrative Pt here for evenity injection as scheduled. Denies any issues with previous injections. Calcium 9.5. Evenity given SQ to bilat upper arms. Pt tolerated well. Treatment calendar given. Pt dc'd in stable ambulatory condition. documented in this encounter [facility] 04-09-2025 History of Present illness Narrative Images from the original note were not included. Angela Ruth is a 79 y.o. female presents with chief complaint of Follow-up HPI: HPI History of Present Illness The patient presents for evaluation of migraines, a recent fall, carpal tunnel syndrome, and arthritis. She has not recently consulted with her environmental engineering assistant but acknowledges the need for a follow-up [...] 1953 APPENDECTOMY 1965 BREAST BIOPSY x4 - [id number] CHOLECYSTECTOMY 2002 EYE SURGERY 01/21/2023 retinal repair [facility] HEMANGIOMA EXCISION 1946 from upper back HYSTERECTOMY 1984 KNEE SURGERY Bilateral arthroscopic knee surgery x3 (Rx2, Lx1) ([id number]) LAPAROTOMY OOPHERECTOMY 1985 LUMBAR DISCECTOMY 1989 partial LUMBAR DISCECTOMY 01/14/2017 Microdiscetomy L5-S1 LUMBAR DISCECTOMY 07/03/2021 L1-2 partial discectomy, L1-2, L2-3 cleaning out of stenosis in the spinal canal DR. [facility] LUMBAR EPIDURAL INJECTION 12/20/2020 Dr Clifton [...] Depression: Not at risk (02/12/2025) Received from [facility] PHQ-2 Total Score: 2 REVIEW OF SYMPTOMS: [...] List Items Addressed This Visit Essential hypertension ([facility]) Overview Managed by dr cifuentes Relevant Medications lisinopril-hydroCHLOROthiazide 20-12.5 MG tablet Other Visit Diagnoses Intractable migraine with aura without status migrainosus ([facility]) - Primary Relevant Orders Ambulatory referral to [...] in 3 months. documented in this encounter [facility] 03-22-2025 Telephone encounter Note Approvals with refills [facility] 03-22-2025 Miscellaneous Notes Approvals with refills documented in this encounter [facility] 03-21-2025 History of Present illness Narrative Pt here for evenity injection as scheduled. Denies any issues with previous injections. Calcium 9.6. Evenity given SQ to bilat upper arms. Pt tolerated well. Treatment calendar given. Pt dc'd in stable ambulatory condition. documented in this encounter [facility] 02-27-2025 Evaluation + Plan note Associated Problem(s): Urge incontinence We discussed cranberry/D mannose supplements, topical estrogen cream, methenamine, or a prophylactic antibiotic. [facility] 02-27-2025 Miscellaneous Notes Associated Problem(s): Urge incontinence We discussed cranberry/D mannose supplements, topical estrogen cream, methenamine, or a prophylactic antibiotic. documented in this encounter [facility] 02-27-2025 History of Present illness Narrative Images from the original note were not included. [address] [facility] [id number] Patient: Angela Ruth Date of : 1945 [...] 07/07/2018 Performed by Alexander Leach MD at [facility] ENDOSCOPY COSMETIC SURGERY 1984 DISCECTOMY 1989 Partial L4-5 EGD 2001 EYE SURGERY 2014 FOOT SURGERY 2009 Reattachment of tendon left foot with bone graft HIP SURGERY 2003 Excision of bursa left hip HYSTERECTOMY 1984 INJECTION BLOCK EPIDURAL STEROID LUMBAR/SACRAL Left L 5,1 NR Left 12/20/2020 Performed by Shubham Clifton MD at [facility] INJECTION BLOCK NERVE MEDIAL BRANCH right C 4/5,5/6 Right 05/22/2022 Performed by Shubham Clifton MD at [facility] INJECTION BLOCK NERVE MEDIAL BRANCH right C 4/5,5/6 Right 04/17/2022 Performed by Shubham Clifton MD at [facility] INJECTION CAUDAL EPIDURAL WITH CATHETER, STEROID N/A 03/07/2018 Performed by Shubham Clifton MD at [facility] INJECTION LARGE JOINT BURSA: bilat hip Bilateral 12/10/2017 Performed by Shubham Clifton MD at [facility] INJECTION MEDIAL BRANCH NERVE BLOCK Bilateral L 4/5, 5/1 Bilateral 06/28/2017 Performed by Shubham Clifton MD at [facility] INJECTION MEDIAL BRANCH NERVE BLOCK Right L 2/3, 3/4 Right 12/08/2019 Performed by Shubham Clifton MD at [facility] INJECTION MEDIAL BRANCH NERVE BLOCK RIGHT L23 34 Right 01/19/2020 Performed by Shubham Clifton MD at [facility] SI JOINT Bilateral 04/09/2017 Performed by Shubham Clifton MD at [facility] INJECTION SI JOINT Bilateral SI Joint Bilateral 05/31/2020 Performed by Shubham Clifton MD at [facility] INJECTION SI JOINT Left SI JOint Left 01/06/2019 Performed by Shubham Clifton MD at [facility] INJECTION SI JOINT Right SI Joint Right 06/09/2019 Performed by Shubham Clifton MD at [facility] SPINE TRANSFORAMINAL Left L 4, 5 NR Left 09/24/2017 Performed by Shubham Clifton MD at [facility] INJECTION SPINE TRANSFORAMINAL Left L 5,1 Nroot Left 01/08/2023 Performed by Shubham Clifton MD at [facility] SPINE TRANSFORAMINAL Right L 5,1 Nroot Right 11/27/2022 Performed by Shubham Clifton MD at [facility] STEROID EPI 1 WITH SEDATION Left 5,1 NR Left 05/08/2019 Performed by Shubham Clifton MD at [facility] KNEE ARTHROSCOPY 2010, 2013 KNEE SURGERY 2010 2013 Arthroscopy bilateral/repair meniscus right X2, left X1 LAMINECTOMY LUMBAR FORAMENOTOMY MULTI LEVEL L1-2 RIGHT/L2-3 BILATERAL/LUMBAR DRAIN INSERTION N/A 07/03/2021 Performed by Corey Chacon MD at [facility] LAPAROTOMY OOPHERECTOMY Bilateral 1984 LUMBAR DISCECTOMY LUMBAR FUSION 2009 L3-5 LUMBAR LAMINECTOMY MICRO LUMBAR DISCECTOMY L5-S1/ FORAMINOTOMY L5-S1 Left 01/14/2017 Performed by Corey Chacon MD at [facility] OOPHORECTOMY 1982 OTHER SURGICAL HISTORY Knee Arthroscopy With Medial Meniscus Repair OTHER SURGICAL HISTORY Spinal Diskectomy RADIO FREQUENCY ABLATION Left L 4/5, 5/1 Left 12/02/2018 Performed by Shubham Clifton MD at [facility] RADIO FREQUENCY ABLATION Left L 4/5, /1 Left 07/30/2017 Performed by Shubham Clifton MD at [facility] RADIO FREQUENCY ABLATION Left SI joint Left 03/31/2019 Performed by Shubham Clifton MD at [facility] RADIO FREQUENCY ABLATION Right L2/3, 3/4 Right 03/29/2020 Performed by Shubham Clifton MD at [facility] RADIOFREQUENCY ABLATION SPINAL Left Si joint Left 05/07/2017 Performed by Shubham Clifton MD at [facility] RADIOFREQUENCY ABLATION SPINAL Right C 4/5,5/6 Right 06/26/2022 Performed by Shubham Clifton MD at [facility] RADIOFREQUENCY ABLATION SPINAL RIGHT SI JOINT Right 05/21/2017 Performed by Shubham Clifton MD at [facility] RELEASE CARPAL TUNNEL Left 11/04/2021 Performed by Corey Chacon MD at [facility] SHOULDER SURGERY 2011 Right rotator cuff [...] mg total) by mouth in the morning. qmytclr-avekalssdngpp-gywtwfem (EXCEDRIN MIGRAINE) 250-250-65 mg per tablet Take [...] hospitalization) Allergies: Indocin [indomethacin], Lincocin [lincomycin], Lincosamides, Kmvisgqz-6-nl0 antimigraine agents, Adhesive, Eggshell membrane, Influenza virus [...] caffeine as well as addressing constipation with elyh-nza-xghhbzn agents. If no improvement can add beta [...] Kramer or me in 3-4 months in [place] MINH GALLAGHER This note was created with the assistance of a speech recognition program. While intending to generate a timely document that accurately reflects the content of the visit, no guarantee can be provided that every grammatical or spelling mistake has been or will be identified or corrected. Thank you for your understanding. MINH Gallagher 02/27/25 1515 documented in this encounter [facility] 02-27-2025 Instructions MINH Gallagher - 02/27/2025 2:30 [...] want to do. documented in this encounter [facility] 02-19-2025 Telephone encounter Note Approvals with refills [facility] 02-19-2025 Miscellaneous Notes Approvals with refills documented in this encounter [facility] 02-16-2025 History of Present illness Narrative Patient here for Evenity injection Vitals WNL Injection given sub q in the Right arm Patient tolerated well Calendar given for next injection documented in this encounter [facility] 02-12-2025 Telephone encounter Note Nancy- pharmacy from [facility] in [place] calling to let you know that they received rx for remeron and they cannot fill due to drug interaction with amitriptyline prescribed by Dr. Dorsey. It is a category X- cannot fill. Increased risk of serotonin syndrome. She has been on amitriptyline for years. Please advise [facility]. Thank you. [facility] 02-12-2025 Miscellaneous Notes Nancy- pharmacy from [facility] in [place] calling to let you know that they received rx for remeron and they cannot fill due to drug interaction with amitriptyline prescribed by Dr. Dorsey. It is a category X- cannot fill. Increased risk of serotonin syndrome. She has been on amitriptyline for years. Please advise jil. Thank you. documented in this encounter [facility] 02-12-2025 History of Present illness Narrative Images [...] mg TID Inderal (tremors) Midrin Migraine cocktails [place] PRN Occipital nerve blocks (last 03/2021) Propranolol [...] He referred her to the [facility] [place] for evaluation for possible gamma knife intervention. [...] (benign paroxysmal positional vertigo) Brain tumor (benign) ([facility]) Breast disorder 4 biopsies Bronchitis 01/01/2017 Cancer ([facility]) Basal cell Carpal tunnel syndrome Cataract [...] 07/07/2018 Performed by Alexander Leach MD at [facility] ENDOSCOPY COSMETIC SURGERY 1984 DISCECTOMY 1989 Partial L4-5 EGD 2001 EYE SURGERY 2014 FOOT SURGERY 2008 Reattachment of tendon left foot with bone graft HIP SURGERY 2003 Excision of bursa left hip HYSTERECTOMY 1983 INJECTION BLOCK EPIDURAL STEROID LUMBAR/SACRAL Left L 5,1 NR Left 12/20/2020 Performed by Shubham Clifton MD at [facility] INJECTION BLOCK NERVE MEDIAL BRANCH right C 4/5,5/6 Right 05/22/2022 Performed by Shubham Clifton MD at [facility] INJECTION BLOCK NERVE MEDIAL BRANCH right C 4/5,5/6 Right 04/17/2022 Performed by Shubham Clifton MD at [facility] CAUDAL EPIDURAL WITH CATHETER, STEROID N/A 03/07/2018 Performed by Shubham Clifton MD at [facility] LARGE JOINT BURSA: bilat hip Bilateral 12/10/2017 [...] 01/19/2020 Performed by Shubham Clifton MD at [facility] INJECTION SI JOINT Bilateral 04/09/2017 Performed by Shubham Clifton MD at [facility] INJECTION SI JOINT Bilateral SI Joint Bilateral 05/31/2020 Performed by Shubham Clifton MD at [facility] INJECTION SI JOINT Left SI JOint Left 01/06/2019 Performed by Shubham Clifton MD at [facility] INJECTION SI JOINT Right SI Joint Right 06/09/2019 Performed by Shubham Clifton MD at [facility] SPINE TRANSFORAMINAL Left L 4, 5 NR Left 09/24/2017 Performed by Shubham Clifton MD at [facility] INJECTION SPINE TRANSFORAMINAL Left L 5,1 Nroot Left 01/08/2023 Performed by Shubham Clifton MD at [facility] INJECTION SPINE TRANSFORAMINAL Right L 5,1 Nroot Right 11/27/2022 Performed by Shubham Clifton MD at [facility] STEROID EPI 1 WITH SEDATION Left 5,1 NR Left 05/08/2019 Performed by Shubham Clifton MD at [facility] KNEE ARTHROSCOPY 2013 KNEE SURGERY 2010 2013 Arthroscopy bilateral/repair meniscus right X2, left X1 LAMINECTOMY LUMBAR FORAMENOTOMY MULTI LEVEL L1-2 RIGHT/L2-3 BILATERAL/LUMBAR DRAIN INSERTION N/A 07/03/2021 Performed by Corey Chacon MD at [facility] LAPAROTOMY OOPHERECTOMY Bilateral 1984 LUMBAR DISCECTOMY LUMBAR FUSION 2010 L3-5 LUMBAR LAMINECTOMY MICRO LUMBAR DISCECTOMY L5-S1/ FORAMINOTOMY L5-S1 Left 01/14/2017 Performed by Corey Chacon MD at [facility] OOPHORECTOMY 1982 OTHER SURGICAL HISTORY Knee Arthroscopy With Medial Meniscus Repair OTHER SURGICAL HISTORY Spinal Diskectomy RADIO FREQUENCY ABLATION Left L 4/5, 5/1 Left 12/02/2018 Performed by Shubham Clifton MD at [facility] RADIO FREQUENCY ABLATION Left L 4/5, 5/1 Left 07/30/2017 Performed by Shubham Clifton MD at [facility] RADIO FREQUENCY ABLATION Left SI joint Left 03/31/2019 Performed by Shubham Clifton MD at [facility] RADIO FREQUENCY ABLATION Right L2/3, 3/4 Right 03/29/2020 Performed by Shubham Clifton MD at [facility] RADIOFREQUENCY ABLATION SPINAL Left Si joint Left 05/07/2017 Performed by Shubham Clifton MD at [facility] RADIOFREQUENCY ABLATION SPINAL Right C 4/5,5/6 Right 06/26/2022 Performed by Shubham Clifton MD at [facility] RADIOFREQUENCY ABLATION SPINAL RIGHT SI JOINT Right 05/21/2017 Performed by Shubham Clifton MD at [facility] RELEASE CARPAL TUNNEL Left 11/04/2021 Performed by Corey Chacon MD at [facility] SHOULDER [...] Resource Strain: Low Risk (04/02/2024) Received from [facility] Overall Financial Resource Strain (CARDIA) Difficulty of Paying Living Expenses: Not very hard Food Insecurity: No Food Insecurity (02/12/2025) Hunger Screening Food Insecurity - Worry: Never True Food Insecurity - Inability: Never True Transportation Needs: Unknown (04/02/2024) Received from [facility] PRAPARE - Transportation Lack of Transportation (Medical): Not on file Lack of Transportation (Non-Medical): No Physical Activity: Insufficiently Active (04/02/2024) Received from [facility] Exercise Vital Sign Days of Exercise per Week: 3 days Minutes of Exercise per Session: 10 min Stress: Stress Concern Present (04/02/2024) Received from [facility] [employer] - Occupational Stress Questionnaire Feeling of Stress : Rather much Social Connections: Moderately Integrated (04/02/2024) Received from [facility] Social Connection and Isolation Panel [NHANES] Frequency of Communication with Friends and Family: More than three times a week Frequency of Social Gatherings with Friends and Family: More than three times a week Attends Holiness Services: More than 4 times per year Active Member of Clubs or Organizations: Yes Attends Club or Organization Meetings: More than 4 times per year Marital Status: Interpersonal Safety: Not on file Housing Instability: High Risk (04/02/2024) Received from [facility] Housing Stability Vital Sign Unable to Pay [...] mg total) by mouth in the morning. cvulvwt-sbwqnbegzlgxd-mdqfykob (EXCEDRIN MIGRAINE) 250-250-65 mg per tablet Take [...] He referred her to the [facility] for evaluation for possible gamma knife intervention. [...] Referring and communicating with other health healthcare project manager (not separately reported) Documenting clinical information in the electronic or other health record Independently interpreting results (not separately reported) and communicating results to the patient/family/caregiver Care coordination (not separately reported) - Yoanna Dorsey DNP, [employer]-NURSE STAFF [employer] 02/12/25 8:31 AM [facility] 02/12/25 0831 [facility]-12-2025 Instructions CHACE Rayo - 02/12/2025 [...] months, earlier if needed (SHEILA is fine) [facility] Miscellaneous Notes ----- Message from HAVEN Osullivan sent at 02/09/2025 8:21 AM EDT ----- Regarding: RE: re schedule appt Really any day is fine to reschedule except for Wednesday. ----- Message ----- From: Blanche Aviles CMA Sent: 02/09/2025 7:43 AM EDT [facility] Subject: re schedule appt Pt called and said that she needs to reschedule her appt for today and when someone calls she can explain when she needs it rescheduled for. Pt left a voicemail yesterday after hours. I can call and reschedule her if you let me know what's available. documented in this encounter [facility] 02-09-2025 Telephone encounter Note ----- Message from HAVEN Osullivan sent at 02/09/2025 8:21 AM EDT ----- Regarding: RE: re schedule appt Really any day is fine to reschedule except for Wednesday. ----- Message ----- From: Blanche Aviles CMA Sent: 02/09/2025 7:43 AM EDT [facility] Subject: re schedule appt Pt called and said that she needs to reschedule her appt for today and when someone calls she can explain when she needs it rescheduled for. Pt left a voicemail yesterday after hours. I can call and reschedule her if you let me know what's available. [facility] History of Present illness Narrative [...] 1953 APPENDECTOMY 1965 BREAST BIOPSY x4 - [id number] CHOLECYSTECTOMY 2002 EYE SURGERY 01/21/2023 retinal repair [facility] HEMANGIOMA EXCISION 1946 from upper back HYSTERECTOMY 1984 KNEE SURGERY Bilateral arthroscopic knee surgery x3 (Rx2, Lx1) ([id number]) LAPAROTOMY OOPHERECTOMY 1985 LUMBAR DISCECTOMY 1989 partial LUMBAR DISCECTOMY 01/14/2017 Microdiscetomy L5-S1 LUMBAR DISCECTOMY 07/03/2021 L1-2 partial discectomy, L1-2, L2-3 cleaning out of stenosis in the spinal canal [facility] LUMBAR EPIDURAL INJECTION 12/20/2020 Dr Clifton [...] Asthma Father Dre Baer Stroke Paternal Grandfather rTa Bare Diabetes Paternal Grandmother Sandra Baer Hearing loss Paternal Grandmother Sandra Baer Stroke Paternal Grandmother Sandra Baer Alcohol abuse Father's Brother Jesús Baer Cancer Mother's Sister Jannette Pily Cancer Mother's Sister Nisa Dunham Cancer Mother's Sister Janet Jackie COPD Father's Brother Jluis Baer Early natural Mother's Sister Lorna Angelesayush Mental illness Neg Hx Drug abuse Neg [...] Depression - At risk (07/13/2024) Received from [employer] PHQ-2 Total Score: 3 REVIEW OF SYMPTOMS: [...] Assessment & Plan documented in this encounter [facility] 01-15-2025 History of Present illness Narrative Images [...] 1952 APPENDECTOMY 1965 BREAST BIOPSY x4 - [id number] CHOLECYSTECTOMY 2001 EYE SURGERY 01/21/2023 retinal repair [facility] HEMANGIOMA EXCISION 1946 from upper back HYSTERECTOMY 1984 KNEE SURGERY Bilateral arthroscopic knee surgery x3 (Rx2, Lx1) ([id number]) LAPAROTOMY OOPHERECTOMY 1985 LUMBAR DISCECTOMY 1989 partial LUMBAR DISCECTOMY 01/14/2017 Microdiscetomy L5-S1 LUMBAR DISCECTOMY 07/03/2021 L1-2 partial discectomy, L1-2, L2-3 cleaning out of stenosis in the spinal canal [facility] LUMBAR EPIDURAL INJECTION 12/20/2020 Dr Clifton RADIOFREQUENCY ABLATION 03/29/2020 lumbar ROTATOR CUFF REPAIR Right 2011 SPINAL FUSION 2010 L3-L5 TONSILLECTOMY 195 TRIGGER FINGER RELEASE Right 1995 release of Dequervan's tendon - R wrist TRIGGER FINGER RELEASE Right 05/16/2018 FAMILY HISTORY: Family History Problem Relation Name Age of Onset Hypertension Mother Chloe Baer Cancer Mother Chloe Baer COPD Father Dre Baer Cancer Father Dre Beardrebekah Arthritis Father Dre Baer Asthma Father Dre Beardrebekah Stroke Paternal Grandfather Tra Keyur Diabetes Paternal Grandmother Sandra Keyur Hearing loss Paternal Grandmother Sandra Keyur Stroke Paternal Grandmother Sandra Baer Alcohol abuse Father's Brother Jesús Keyur Cancer Mother's Sister Jannette Pily Cancer Mother's Sister Nisa Dunham Cancer Mother's Sister Janet Mejia COPD Father's Brother Jluis Keyur Early natural Mother's Sister Lorna Agee Mental [...] Depression - At risk (07/13/2024) Received from [employer] PHQ-2 Total Score: 3 REVIEW OF SYMPTOMS: [...] in 1 month. documented in this encounter [facility] 01-11-2025 History of Present illness Narrative Patient does not have a current calcium completed Patient will have calcium done and will call to re-schedule documented in this encounter [facility] 01-09-2025 History of Present illness Narrative Images from the original note were not included. Subjective Patient ID: Angela Ruth is a 79 y.o. female who presents for Hoarseness Pt reports a many year h/o trouble with her voice. 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 [...] Father Dre Baer Stroke Paternal Grandfather Tra Kisharebekah Diabetes Paternal Grandmother Sandra Baer Hearing loss Paternal Grandmother Sandra Keyur Stroke Paternal Grandmother Sandra Keyur Alcohol abuse Father's Brother Jesús Baer Cancer Mother's Sister Jannette Nascimento Cancer Mother's Sister Nisa Dunham Cancer Mother's Sister Janet Mejia COPD Father's Brother Jluis Keyur Early natural Mother's Sister Lorna Agee Mental illness Neg Hx Drug abuse Neg Hx Active Ambulatory Problems Diagnosis Date Noted Trochanteric bursitis of both hips 11/03/2017 Spinal stenosis of lumbar region 08/14/2011 Primary insomnia 06/04/2023 Primary osteoarthritis of right knee 09/17/2021 Recurrent falls 11/01/2017 Other specified depressive episodes ([facility]) 02/12/2017 Nocturnal leg cramps 06/04/2023 Mixed stress and urge urinary incontinence 10/29/2020 Major depressive disorder, single episode, in full remission ([facility]) 10/24/2019 Hyperlipidemia ([facility]) 11/08/2015 History of lumbar fusion 12/11/2015 History of depression 2018 Gastroesophageal reflux disease without esophagitis 09/15/2021 Herniation of lumbar intervertebral disc with radiculopathy 01/07/2017 Essential tremor 12/12/2018 Essential hypertension ([facility]) 03/13/2013 Degeneration of lumbosacral intervertebral disc 08/14/2016 Chronic idiopathic constipation 07/10/2019 Bilateral occipital neuralgia 03/02/2019 Asthma ([facility]) 03/26/2016 Age-related osteoporosis without current pathological fracture ([facility]) 06/04/2023 Acquired hypothyroidism ([facility]) 09/29/2019 1st degree AV block 06/10/2021 Bilateral nephrolithiasis 03/02/2023 Stage 3b chronic kidney disease (CKD) ([facility]) 06/04/2023 History of falling 11/04/2023 Lung nodule 02/15/2024 Brain lesion 02/15/2024 Balance problem 06/12/2019 Impingement syndrome of right shoulder 08/14/2011 Resolved Ambulatory Problems Diagnosis Date Noted Adjustment disorder with anxiety ([facility]) 05/04/2023 Migraine without status migrainosus, not intractable ([facility]) 06/04/2023 Lumbago with sciatica, right side 06/04/2023 Disc displacement, lumbar 05/05/2019 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 01/14/2017 Cervical spondylosis without myelopathy 04/01/2022 Age related osteoporosis ([facility]) 12/19/2019 Past Medical History: Diagnosis Date Allergic Allergic rhinitis Back pain Basal cell carcinoma Benign essential hypertension ([facility]) Bilateral carpal tunnel syndrome Chronic kidney disease Chronic pain Depression ([facility]) GERD (gastroesophageal reflux disease) Sky's thyroiditis ([facility]) HL (hearing loss) Hypothyroidism (CMS/HCC) Laryngitis Migraine (CMS/HCC) Neuromuscular disorder (CMS/HCC) Osteoarthritis Osteopenia Osteoporosis (CMS/HCC) Scoliosis Subdural hematoma (CMS/HCC) 12/2017 Urinary tract infection Vertigo Past Surgical History: Procedure Laterality Date ADENOIDECTOMY 195 APPENDECTOMY 1965 BREAST BIOPSY x4 - [id number] CHOLECYSTECTOMY 2002 EYE SURGERY 01/21/2023 retinal repair [facility] HEMANGIOMA EXCISION 1946 from upper back HYSTERECTOMY 1984 KNEE SURGERY Bilateral arthroscopic knee surgery x3 (Rx2, Lx1) ([id number]) LAPAROTOMY OOPHERECTOMY 1985 LUMBAR DISCECTOMY 1989 partial LUMBAR DISCECTOMY 01/14/2017 Microdiscetomy L5-S1 LUMBAR DISCECTOMY 07/03/2021 L1-2 partial discectomy, L1-2, L2-3 cleaning out of stenosis in the spinal canal [facility] LUMBAR EPIDURAL INJECTION 12/20/2020 Dr Clifton [...] will refer pt to [facility] at [facility] for tx. Consider laryngology referral for TVF augmentation if no help documented in this encounter [facility] 01-01-2025 History of Present illness Narrative Patient here for UA Dip. Dip added to chart and sent for culture documented in this encounter [facility] 01-01-2025 Telephone encounter Note Are you able to have her come in and give us a specimen in the office for a nurse visit? We can run a test in the office during the nurse visit and send for culture and sensitivity if needed but we will need her to get the specimen while in the office during the nurse visit. [facility] 01-01-2025 Miscellaneous Notes Are you able to [...] her know :) documented in this encounter [facility] 01-01-2025 Telephone encounter Note Pt is having [...] her back and let her know :) [facility] 12-26-2024 History of Present illness Narrative Images [...] Flowsheet Row Office Visit from 12/26/2024 in [facility] with Bia Cao MD Hospital Information ED, Hospital or Shelter Facility Discharge? ED Patient has been contacted within 1 week of being seen in the ED Yes Diagnosis Fall Discharge Date 12/23/24 Discharged To: Home Setting Discharge Hospital [facility] Engagement Call Start Time 925 Admission Date [...] 1953 APPENDECTOMY 1965 BREAST BIOPSY x4 - [id number] CHOLECYSTECTOMY 2002 EYE SURGERY 01/21/2023 retinal repair [facility] HEMANGIOMA EXCISION 1946 from upper back HYSTERECTOMY 1984 KNEE SURGERY Bilateral arthroscopic knee surgery x3 (Rx2, Lx1) ([id number]) LAPAROTOMY OOPHERECTOMY 1985 LUMBAR DISCECTOMY 1989 partial LUMBAR DISCECTOMY 01/14/2017 Microdiscetomy L5-S1 LUMBAR DISCECTOMY 07/03/2021 L1-2 partial discectomy, L1-2, L2-3 cleaning out of stenosis in the spinal canal [facility] LUMBAR EPIDURAL INJECTION 12/20/2020 Dr Clifton [...] Brother Jluis Baer Early natural Mother's Sister Loran Agee Mental illness Neg Hx Drug abuse [...] Depression - At risk (07/13/2024) Received from [facility] PHQ-2 Total Score: 3 REVIEW OF SYMPTOMS: [...] Medication change (Remeron) documented in this encounter [facility] 12-25-2024 Telephone encounter Note Sorry I forgot to add I scheduled her an appt. [facility] 12-25-2024 Miscellaneous Notes Sorry I forgot to add I scheduled her an appt. Please call to check on her This is Angela Ruth. My phone number is [phone] for I am calling to let Dr Sutherland know that I fell on Wednesday night and was seen in, ER. Thank you very much, maría. documented in this encounter [facility] 12-25-2024 Telephone encounter Note Please call to check on her [facility] 12-25-2024 Telephone encounter Note This is Angela Ruth. My phone number is [phone] for I am calling to let Dr Sutherland know that I fell on Wednesday night and was seen in, ER. Thank you very much, maría. [facility] 12-19-2024 History of Present illness Narrative Images from the original note were not included. [address] [place] [address] [facility] [id number] Patient: Angela Ruth Date of : 1945 [...] June as well as March 2024. Also [facility] 4 prior surgeries on L1-L5. PVR minimal. [...] (benign paroxysmal positional vertigo) Brain tumor (benign) ([facility]) Breast disorder 4 biopsies Bronchitis 01/01/2017 [...] 07/07/2018 Performed by Alexander Leach MD at [facility] ENDOSCOPY COSMETIC SURGERY 1985 DISCECTOMY 1990 Partial L4-5 EGD 2001 EYE SURGERY 2014 FOOT SURGERY 2008 Reattachment of tendon left foot with bone graft HIP SURGERY 2003 Excision of bursa left hip HYSTERECTOMY 1983 INJECTION BLOCK EPIDURAL STEROID LUMBAR/SACRAL Left L 5,1 NR Left 12/20/2020 Performed by Shubham Clifton MD at [facility] BLOCK NERVE MEDIAL BRANCH right C 4/5,5/6 Right 05/22/2022 Performed by Shubham Clifton MD at [facility] BLOCK NERVE MEDIAL BRANCH right C 4/5,5/6 Right 04/17/2022 Performed by Shubham Clifton MD at [facility] INJECTION CAUDAL EPIDURAL WITH CATHETER, STEROID N/A 03/07/2018 Performed by Shubham Clifton MD at [facility] LARGE JOINT BURSA: bilat hip Bilateral 12/10/2017 Performed by Shubham Clifton MD at [facility] INJECTION MEDIAL BRANCH NERVE BLOCK Bilateral L 4/5, 5/1 Bilateral 06/28/2017 Performed by Shubham Clifton MD at [facility] INJECTION MEDIAL BRANCH NERVE BLOCK Right L 2/3, 3/4 Right 12/08/2019 Performed by Shubham Clifton MD at [facility] INJECTION MEDIAL BRANCH NERVE BLOCK RIGHT L23 34 Right 01/19/2020 Performed by Shubham Clifton MD at [facility] SI JOINT Bilateral 04/09/2017 Performed by Shubham Clifton MD at [facility] SI JOINT Bilateral SI Joint Bilateral 05/31/2020 Performed by Shubham Clifton MD at [facility] SI JOINT Left SI JOint Left 01/06/2019 Performed by Shubham Clifton MD at [facility] SI JOINT Right SI Joint Right 06/09/2019 Performed by Shubham Clifton MD at [facility] SPINE TRANSFORAMINAL Left L 4, 5 NR Left 09/24/2017 Performed by Shubham Clifton MD at [facility] SPINE TRANSFORAMINAL Left L 5,1 Nroot Left 01/08/2023 Performed by Shubham Clifton MD at [facility] SPINE TRANSFORAMINAL Right L 5,1 Nroot Right 11/27/2022 Performed by Shubham Clifton MD at [facility] INJECTION STEROID EPI 1 WITH SEDATION Left 5,1 NR Left 05/08/2019 Performed by Shubham Clifton MD at [facility] KNEE ARTHROSCOPY 2010, 2013 KNEE SURGERY 2010 2013 Arthroscopy bilateral/repair meniscus right X2, left X1 LAMINECTOMY LUMBAR FORAMENOTOMY MULTI LEVEL L1-2 RIGHT/L2-3 BILATERAL/LUMBAR DRAIN INSERTION N/A 07/03/2021 Performed by Corey Chacon MD at [facility] LAPAROTOMY OOPHERECTOMY Bilateral 1983 LUMBAR DISCECTOMY LUMBAR FUSION 2010 L3-5 LUMBAR LAMINECTOMY MICRO LUMBAR DISCECTOMY L5-S1/ FORAMINOTOMY L5-S1 Left 01/14/2017 Performed by Corey Chacon MD at [facility] OOPHORECTOMY 1982 OTHER SURGICAL HISTORY Knee Arthroscopy With Medial Meniscus Repair OTHER SURGICAL HISTORY Spinal Diskectomy RADIO FREQUENCY ABLATION Left L 4/5, 5/1 Left 12/02/2018 Performed by Shubham Clifton MD at [facility] RADIO FREQUENCY ABLATION Left L 4/5, 5/1 Left 07/30/2017 Performed by Shubham Clifton MD at [facility] RADIO FREQUENCY ABLATION Left SI joint Left 03/31/2019 Performed by Shubham Clifton MD at [facility] RADIO FREQUENCY ABLATION Right L2/3, 3/4 Right 03/29/2020 Performed by Shubham Clifton MD at [facility] RADIOFREQUENCY ABLATION SPINAL Left Si joint Left 05/07/2017 Performed by Shubham Clifton MD at [facility] RADIOFREQUENCY ABLATION SPINAL Right C 4/5,5/6 Right 06/26/2022 Performed by Shubham Clifton MD at [facility] RADIOFREQUENCY ABLATION SPINAL RIGHT SI JOINT Right 05/21/2017 Performed by Shubham Clifton MD at [facility] RELEASE CARPAL TUNNEL Left 11/04/2021 Performed by Corey Chacon MD at [facility] SHOULDER [...] mg total) by mouth in the morning. abmjhie-cqpzkltnmmrnp-mvqeutdo (EXCEDRIN MIGRAINE) 250-250-65 mg per tablet Take [...] caffeine as well as addressing constipation with kgza-pfo-sdjwfkm agents. If no improvement can add beta [...] for your understanding. documented in this encounter [facility] 12-12-2024 Telephone encounter Note Approvals with refills [facility] 12-12-2024 Miscellaneous Notes Approvals with refills documented in this encounter [facility] 12-08-2024 History of Present illness Narrative Images [...] List Items Addressed This Visit Essential hypertension ([facility]) Overview Managed by dr cifuentes Age-related osteoporosis without current pathological fracture ([facility]) Other Visit Diagnoses Urinary frequency - Primary [...] skin lesions today. documented in this encounter [facility] 12-06-2024 History of Present illness Narrative Reason [...] (benign paroxysmal positional vertigo) Brain tumor (benign) ([facility]) Breast disorder 4 biopsies Bronchitis 01/01/2017 Cancer ([facility]) Basal cell Carpal tunnel syndrome Cataract Chronic [...] 07/07/2018 Performed by Alexander Leach MD at [facility] ENDOSCOPY COSMETIC SURGERY 1984 DISCECTOMY 1989 Partial L4-5 EGD 2001 EYE SURGERY 2014 FOOT SURGERY 2009 Reattachment of tendon left foot with bone graft HIP SURGERY 2003 Excision of bursa left hip HYSTERECTOMY 1983 INJECTION BLOCK EPIDURAL STEROID LUMBAR/SACRAL Left L 5,1 NR Left 12/20/2020 Performed by Shubham Clifton MD at [facility] IN[facility]CTION BLOCK NERVE MEDIAL BRANCH right C 4/5,5/6 Right 05/22/2022 Performed by Shubham Clifton MD at [facility] IN[facility]CTION BLOCK NERVE MEDIAL BRANCH right C 4/5,5/6 Right 04/17/2022 Performed by Shubham Clifton MD at [facility] INJECTION CAUDAL EPIDURAL WITH CATHETER, STEROID N/A 03/07/2018 Performed by Shubham Clifton MD at [facility] LARGE JOINT BURSA: bilat hip Bilateral 12/10/2017 Performed by Shubham Clifton MD at [facility] MEDIAL BRANCH NERVE BLOCK Bilateral L 4/5, 5/1 Bilateral 06/28/2017 Performed by Shubham Clifton MD at [facility] MEDIAL BRANCH NERVE BLOCK Right L 2/3, 3/4 Right 12/08/2019 Performed by Shubham Clifton MD at [facility] MEDIAL BRANCH NERVE BLOCK RIGHT L23 34 Right 01/19/2020 Performed by Shubham Clifton MD at [facility] SI JOINT Bilateral 04/09/2017 Performed by Shubham Clifton MD at [facility] SI JOINT Bilateral SI Joint Bilateral 05/31/2020 Performed by Shubham Clifton MD at [facility] SI JOINT Left SI JOint Left 01/06/2019 Performed by Shubham Clifton MD at [facility] SI JOINT Right SI Joint Right 06/09/2019 Performed by Shubham Clifton MD at [facility] SPINE TRANSFORAMINAL Left L 4, 5 NR Left 09/24/2017 Performed by Shubham Clifton MD at [facility] INJECTION SPINE TRANSFORAMINAL Left L 5,1 Nroot Left 01/08/2023 Performed by Shubham Clifton MD at [facility] INJECTION SPINE TRANSFORAMINAL Right L 5,1 Nroot Right 11/27/2022 Performed by Shubham Clifton MD at [facility] STEROID EPI 1 WITH SEDATION Left 5,1 NR Left 05/08/2019 Performed by Shubham Clifton MD at [facility] KNEE ARTHROSCOPY 2010, 2013 KNEE SURGERY 2010 2013 Arthroscopy bilateral/repair meniscus right X2, left X1 LAMINECTOMY LUMBAR FORAMENOTOMY MULTI LEVEL L1-2 RIGHT/L2-3 BILATERAL/LUMBAR DRAIN INSERTION N/A 07/03/2021 Performed by Corey Chacon MD at [facility] LAPAROTOMY OOPHERECTOMY Bilateral 1984 LUMBAR DISCECTOMY LUMBAR FUSION 2009 L3-5 LUMBAR LAMINECTOMY MICRO LUMBAR DISCECTOMY L5-S1/ FORAMINOTOMY L5-S1 Left 01/14/2017 Performed by Corey Chacon MD at [facility] OOPHORECTOMY 1982 OTHER SURGICAL HISTORY Knee Arthroscopy With Medial Meniscus Repair OTHER SURGICAL HISTORY Spinal Diskectomy RADIO FREQUENCY ABLATION Left L 4/5, 5/1 Left 12/02/2018 Performed by Shubham Clifton MD at [facility] RADIO FREQUENCY ABLATION Left L 4/5, 5/1 Left 07/30/2017 Performed by Shubham Clifton MD at [facility] RADIO FREQUENCY ABLATION Left SI joint Left 03/31/2019 Performed by Shubham Clifton MD at [facility] RADIO FREQUENCY ABLATION Right L2/3, 3/4 Right 03/29/2020 Performed by Shubham Clifton MD at [facility] RADIOFREQUENCY ABLATION SPINAL Left Si joint Left 05/07/2017 Performed by Shubham Clifton MD at [facility] RADIOFREQUENCY ABLATION SPINAL Right C 4/5,5/6 Right 06/26/2022 Performed by Shubham Clifton MD at [facility] RADIOFREQUENCY ABLATION SPINAL RIGHT SI JOINT Right 05/21/2017 Performed by Shubham Clifton MD at [facility] RELEASE CARPAL TUNNEL Left 11/04/2021 Performed by Corey Chacon MD at [facility] SHOULDER [...] mouth in the morning., Disp: , Rfl: vnciuzz-zovdfjghmprwc-varriudm (EXCEDRIN MIGRAINE) 250-250-65 mg per tablet, Take [...] months with doctor John Johnson MD, MPH, [facility] [address] [place] [id number] Dept: [phone] FAX: [phone] documented in this encounter [facility] 11-29-2024 Telephone encounter Note Approvals with refills [facility] 11-29-2024 Miscellaneous Notes Approvals with refills documented in this encounter [facility] 11-06-2024 Telephone encounter Note Approvals with refills [facility] 11-06-2024 Miscellaneous Notes Approvals with refills documented in this encounter [facility] 10-30-2024 History of Present illness Narrative Images [...] (four) hours., Disp: 18 g, Rfl: 11 zezywhtxml-gkbdmczuyupzd-owisdur e 50-325-40 MG tablet, Take 1 tablet [...] 1953 APPENDECTOMY 1965 BREAST BIOPSY x4 - [id number] CHOLECYSTECTOMY 2002 EYE SURGERY 01/21/2023 retinal repair [facility] HEMANGIOMA EXCISION 1946 from upper back HYSTERECTOMY 1984 KNEE SURGERY Bilateral arthroscopic knee surgery x3 (Rx2, Lx1) ([id number]) LAPAROTOMY OOPHERECTOMY 1984 LUMBAR DISCECTOMY 1989 partial LUMBAR DISCECTOMY 01/14/2017 Microdiscetomy L5-S1 LUMBAR DISCECTOMY 07/03/2021 L1-2 partial discectomy, L1-2, L2-3 cleaning out of stenosis in the spinal [facility] LUMBAR EPIDURAL INJECTION 12/20/2020 Dr Clifton [...] Jluis Baer Early natural Mother's Sister Lorna Fawadtenayush Mental illness Neg Hx Drug abuse Neg [...] Santo Christianson DPM documented in this encounter [facility] 10-30-2024 Instructions Santo Christianson DPM - 10/30/2024 1:45 PM EST As noted documented in this encounter [facility] 10-06-2024 Telephone encounter Note Voicemail left for Angela at [phone]. Call back number given. 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 My note was forward to Dr. Hoover for review. At this time we recommend follow up and new imaging in 1 year. Rose Velasquez MSN, [employer], NURSE STAFF [employer] Certified Nurse Practitioner [facility] Work Phone: 10-06-2024 Miscellaneous Notes Voicemail left for Angela at [phone]. Call back number given. 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 My note was forward to Dr. Hoover for review. At this time we recommend follow up and new imaging in 1 year. Rose Velasquez, MSN, [employer], NURSE STAFF [employer] Certified Nurse Practitioner General Call Caller : Angela Contact Reason for Call : Did you speak with Dr. Hoover regarding her most recent appt? Patient requesting return call ? Yes documented in this encounter [facility] 10-04-2024 Telephone encounter Note General Call Caller : Angela Contact Reason for Call : Did you speak with Dr. Hoover regarding her most recent appt? Patient requesting return call ? Yes [facility] 09-26-2024 Note HNO ID: [id number] Author: ROSE VELASQUEZ APRN.NURSE STAFF INDUSTRIAL Service: ? Author Type: Nurse Practitioner Type: Progress Notes Filed: 09/26/2024 15:27 Note Text: [facility] NEURO-ONCOLOGY OUTPATIENT CLINIC NOTE [...] side to side (more content not included)... [facility] 09-26-2024 History of Present illness Narrative Images from the original note were not included. [facility] NEURO-ONCOLOGY OUTPATIENT CLINIC NOTE [...] OF EXAM: Sep 26 2024 12:29PM IRENE 0295 - MRI BRAIN WO/W IVCON / [...] petrous ridge presumed meningioma compared to 03/02/2024. Athletic Trainer: ALLYSSA Transcribe Date/Time: Sep 26 2024 2:10P [...] - All questions were answered. Rose Velasquez APRN.NURSE STAFF INDUSTRIAL Certified Nurse Practitioner cc: Mandi Hoover MD - Epic documented in this encounter [facility] 09-26-2024 History of Present illness Narrative Radiology [...] AM documented in this encounter [facility] 09-26-2024 Note HNO ID: [id number] Author: JESSICA HOWELL RN Service: Nursing Author [...] DATE: September 26, 2024 TIME: 11:27 AM [facility] 08-14-2024 History of Present illness Narrative [...] past. She does not currently have an catalogue compiler. SUBJECTIVE: MEDICATIONS: Current Outpatient Medications Medication Instructions albuterol HFA 90 mcg/act inhaler 2 puffs, Inhalation, Every 4 hours alendronate (FOSAMAX) 70 mg, Oral, Every 7 days amitriptyline (ELAVIL) 50 mg, Oral, Nightly Ascorbic Acid (vitamin C) 1000 MG tablet Every 24 hours aspirin 81 mg, Oral, Daily RT atorvastatin (LIPITOR) 40 mg, Oral, Daily buprenorphine (Butrans) 7.5 MCG/HR 1 patch, Transdermal, Weekly rzfwqcxyxn-ubdkjjrvtgwgt-fsloafz e 50-325-40 MG tablet 1 tablet, Oral, [...] an hour after taking 100mg hydralazine. Lactobacillus ([place] Women) capsule as directed Orally levothyroxine (Synthroid, [...] provided. She does not currently have an catalogue compiler but is open to seeing one. A COVID-19 test was conducted today, which returned negative. She is advised to stay hydrated. If her condition deteriorates, a repeat COVID-19 test will be necessary. documented in this encounter [facility] 08-08-2024 History of Present illness Narrative Angela [...] (Butrans) 7.5 MCG/HR 1 patch, Transdermal, Weekly gpxaxxkkjk-unbpqydmxayvw-yadvnsr e 50-325-40 MG tablet 1 tablet, Oral, [...] 1952 APPENDECTOMY 1965 BREAST BIOPSY x4 - [id number] CHOLECYSTECTOMY 2002 EYE SURGERY 01/21/2023 retinal repair [facility] HEMANGIOMA EXCISION 1946 from upper back HYSTERECTOMY 1984 KNEE SURGERY Bilateral arthroscopic knee surgery x3 (Rx2, Lx1) ([id number]) LAPAROTOMY OOPHERECTOMY 1985 LUMBAR DISCECTOMY 1990 partial LUMBAR DISCECTOMY 01/14/2017 Microdiscetomy L5-S1 LUMBAR DISCECTOMY 07/03/2021 L1-2 partial discectomy, L1-2, L2-3 cleaning out of stenosis in the spinal canal [facility] LUMBAR EPIDURAL INJECTION 12/20/2020 Dr Clifton [...] Grandmother Sandra Baer Stroke Paternal Grandmother Sandra Kisharebekah Alcohol abuse Father's Brother Jesús Baer Cancer Mother's Sister Jannette Meganmariel Cancer Mother's Sister Nisa Dunham Cancer Mother's Sister Janet Jackie COPD Father's Brother Jluis Keyur Early natural Mother's Sister Lorna Agee Mental illness Neg Hx Drug abuse Neg Hx SOCIAL HISTORY: Social History Tobacco Use Smoking status: Never Smokeless tobacco: Never Tobacco comments: Second hand smoke from Father Vaping Use Vaping status: Never Used Substance Use Topics Alcohol use: Not Currently Comment: caffeine: occasional Drug use: Never Depression: At risk (07/13/2024) Received from [facility] PHQ-2 Total Score: 3 REVIEW OF SYMPTOMS: [...] 25 mg were renewed and sent to [facility] pharmacy. Follow-up The patient will follow up in 4 months. documented in this encounter [facility] 07-10-2024 History of Present illness Narrative Angela [...] consulted with Dr. Romano, a urologist in [place], some time ago but has not sought [...] (Butrans) 7.5 MCG/HR 1 patch, Transdermal, Weekly rmmpugouce-ycqjxozjryxym-cekboyp e 50-325-40 MG tablet 1 tablet, Oral, [...] 1952 APPENDECTOMY 1965 BREAST BIOPSY x4 - [id number] CHOLECYSTECTOMY 2002 EYE SURGERY 01/21/2023 retinal repair [facility] HEMANGIOMA EXCISION 1946 from upper back HYSTERECTOMY 1984 KNEE SURGERY Bilateral arthroscopic knee surgery x3 (Rx2, Lx1) ([id number]) LAPAROTOMY OOPHERECTOMY 1985 LUMBAR DISCECTOMY 1989 partial LUMBAR DISCECTOMY 01/14/2017 Microdiscetomy L5-S1 LUMBAR DISCECTOMY 07/03/2021 L1-2 partial discectomy, L1-2, L2-3 cleaning out of stenosis in the spinal canal [facility] LUMBAR EPIDURAL INJECTION 12/20/2020 Dr Clifton [...] Sandra Keyur Alcohol abuse Father's Brother Jesús Keyur Cancer Mother's Sister Jannette Pily Cancer Mother's Sister Nisa Dunham Cancer Mother's Sister Janet Mejia COPD Father's Brother Jluis Keyur Early natural Mother's Sister Lorna Agee Mental illness Neg Hx Drug abuse Neg Hx SOCIAL HISTORY: Social History Tobacco Use Smoking status: Never Smokeless tobacco: Never Tobacco comments: Second hand smoke from Father Vaping Use Vaping status: Never Used Substance Use Topics Alcohol use: Not Currently Comment: caffeine: occasional Drug use: Never Depression: Not at risk (03/10/2024) Received from [facility], [facility] PHQ-2 Total Score: 0 REVIEW OF SYMPTOMS: [...] by Dr. Márquez documented in this encounter [facility] 04-04-2024 Instructions Anson Ennis MD - 04/04/2024 12:35 PM EDT - obtain follow up MRI brain wwo in 6 months - please follow up with your preschool principal (we do not think the etiology of your hearing loss is due to your meningioma) - our team will notify Dr. Bia Cao regarding these findings; we recommend investigating other etiologies of imbalance in Mrs. Ruth documented in this encounter [facility] 04-04-2024 Nurse Note Additional intake questions: Has the patient had fever, nausea, vomiting, diarrhea, constipation, fatigue for > 1 week? No Does the patient have a decreased appetite? No Does patient want to see a Airport Operations Specialist? No (yes to any of above refer patient to schedulers for dietitian appointment) ) Does patient have any new or increased numbness or tingling of extremities? No Is patient interested in fertility information? No Does patient need any prescription refills? No Does patient have an advanced directive in place? Yes, no copy found in [facility] Patient referred to [facility] Electronically Signed By: Josette Sheppard MA [facility] 04-04-2024 Nurse Note Additional intake questions: Has the patient had fever, nausea, vomiting, diarrhea, constipation, fatigue for > 1 week? No Does the patient have a decreased appetite? No Does patient want to see a Airport Operations Specialist? No (yes to any of above refer patient to schedulers for dietitian appointment) ) Does patient have any new or increased numbness or tingling of extremities? No Is patient interested in fertility information? No Does patient need any prescription refills? No Does patient have an advanced directive in place? Yes, no copy found in [facility] Patient referred to [facility] Electronically Signed By: Josette Sheppard MA documented in this encounter [facility] 04-04-2024 History of Present illness Narrative Images from the original note were not included. SECTION OF SKULL BASE SURGERY MINIMALLY INVASIVE CRANIAL BASE & PITUITARY SURGERY PROGRAM Jessica Caro [facility] [place] CC: Patient Care Team: Bia Cao as PCP ([facility]) Corey Chacon MD as NI Referring Team [...] 6 months with a repeat MRI scan ([place] side preference) and clinic visit with one of our skull base team advance practice providers ([place] side preference). - follow up with preschool principal for hearing loss which is unrelated to [...] Patient is accompanied by her granddaughter (her national flatbed truck driver) and great grand daughter). 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 The patient takes ASA 81 mg daily for cardioprotection per her PCP. The patient has been using a cane for the last 5-6 years. The patient reports that ~6 weeks ago, she walked into her garage door and fell. The patient has not seen an preschool principal or a vestibular therapist. Past Medical History: [...] contrast and shows a 1.2 cm R TECHNICAL SOLUTIONS DIRECTOR contrast-enhancing lesion extra-axial mass arising from the right posterior petrous ridge with no significant mass effect and not abutting the right vestibular cochlear complex. documented in this encounter [facility] 04-04-2024 Note HNO ID: [id number] Author: MANDI HOOVER MD Service: ? Author Type: Physician Type: Progress Notes Filed: 04/05/2024 17:50 Note Text: SECTION OF SKULL BASE SURGERY MINIMALLY INVASIVE CRANIAL BASE AND PITUITARY SURGERY PROGRAM Jessica Caro [facility] [place] CC: Patient Care Team: Bia Cao as PCP ([facility]) Corey Chacon MD as NI Referring Team [...] ([place] side preference). - follow up with preschool principal for hearing loss which is unrelated to [...] Patient is accompanied by her granddaughter (her national flatbed truck driver) and great grand daughter). 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 The patient takes ASA 81 mg daily for cardioprotection per her PCP. The patient has been using a cane for the last 5-6 years. The patient reports that ~6 weeks ago, she walked into her garage door and fell. The patient has not seen an preschool principal or a vestibular therapist. Past Medical History: [...] mg (VYTORIN) 10-40 (more content not included)... [facility] 03-28-2024 Telephone encounter Note Called patient to schedule an appointment. No ans/left message to call the office back. Appointment scheduled: 04/04/2024 10:30 AM (Arrive by 10:15 AM) Mandi Hoover MD Count Includes [facility] Brain Tumor [place] Etelvina Trujillo, PAC [facility] 03-28-2024 Miscellaneous Notes Called patient to schedule an appointment. No ans/left message to call the office back. Appointment scheduled: 04/04/2024 10:30 AM (Arrive by 10:15 AM) Mandi Hoover MD [facility] Tumor [place] Etelvina Trujillo, PAC Time Frame: First available Provider: Kiko Landrum Soni Referring: Corey Chacon MD Images to be requested from [facility] Dx: Right CPA mass Patient: Angela Ruth Address: Angela Ruth [id number] [place] [address] Per Triage: HISTORY OF PRESENT ILLNESS Angela [...] Velasquez APRN.MAHENDRA March 28, 2024 Referral source: Corey Chacon MD [facility]) Reason for visit: consideration of gamma knife for 1.2 cm enhancing lesion at right cerebelloponitine angle with leading differential including vestibular schwannoma and meningioma External records: Sent with referral and pulled from [facility] Triage: Required, forwarded to [facility] by telephone encounter sent to [facility] Scheduling Triage. Financial clearance: Not required to schedule documented in this encounter [facility] 03-28-2024 Telephone encounter Note Time Frame: First available Provider: Kiko Landrum Soni Referring: Corey Chacon MD Images to be requested from [facility] Dx: Right CPA mass Patient: Angela Ruth Address: Angela Ruth [id number] [place] [address] Per Triage: HISTORY OF PRESENT ILLNESS Angela [...] unremarkable. Rose Velasquez APRN.MAHENDRA March 28, 2024 [facility] 03-24-2024 Telephone encounter Note Referral source: Corey Chacon MD ([facility]) Reason for visit: consideration of gamma knife for 1.2 cm enhancing lesion at right cerebelloponitine angle with leading differential including vestibular schwannoma and meningioma External records: Sent with referral and pulled from [facility] Triage: Required, forwarded to [facility] by telephone encounter sent to [facility] Scheduling Triage. Financial clearance: Not required to schedule [facility] Evaluation note Diagnosis General weakness- Primary Other [...] encounter [facility]* Diagnosis Brain mass [G93.89]- Primary Unspecified condition of brain [facility] Intracranial meningioma (HCC)- Primary Benign neoplasm of cerebral meninges Sensorineural hearing loss (SNHL) of right ear, unspecified hearing status on contralateral side Dizziness Dizziness and giddiness [facility] Diagnosis Intracranial meningioma (HCC)- Primary Benign neoplasm of cerebral meninges Benign neoplasm of meninges (HCC) Benign neoplasm of cerebral meninges [facility] Diagnosis Benign neoplasm of meninges (HCC)- Primary Benign neoplasm of cerebral meninges Dizziness Dizziness and giddiness [facility] Diagnosis Benign neoplasm of meninges (HCC) Benign neoplasm of cerebral meninges [facility] Diagnosis Dermatophytosis of nail- Primary Dystrophic nail Other specified disease of nail Pain around toenail, right foot Pain around toenail, left foot [facility] Diagnosis Hoarse- Primary Dysphonia Purulent postnasal drainage Primary insomnia Persistent disorder of initiating or maintaining sleep Gastroesophageal reflux disease without esophagitis Esophageal reflux [facility]* Diagnosis Hyperlipidemia, unspecified hyperlipidemia type ([facility]) [facility] [...] note* Diagnosis Urinary frequency- Primary Essential hypertension ([facility]) Unspecified essential hypertension Age-related osteoporosis without current pathological fracture ([facility]) [facility] [...] depressive disorder, single episode, in full remission ([facility]) Major depressive disorder, 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 Fall, subsequent encounter Gastroesophageal reflux disease without esophagitis Esophageal reflux [facility]* Diagnosis Hematuria, unspecified type [facility]* Diagnosis Acute cystitis with hematuria- Primary [facility]* Diagnosis Mixed hyperlipidemia ([facility]) Mixed hyperlipidemia Anxiety Anxiety state, unspecified [...] [facility] Diagnosis Essential hypertension ([facility])- Primary Unspecified essential hypertension [facility]* Diagnosis Urge incontinence- Primary Frequent UTI Urinary tract infection, site not specified [facility] Diagnosis Urge incontinence- Primary Frequent UTI Urinary tract infection, site not specified Osteoporosis, unspecified osteoporosis type, unspecified pathological fracture presence- Primary [facility]* Diagnosis Moderate persistent asthma, unspecified whether complicated ([facility]) [facility] Diagnosis Intractable migraine with aura without status migrainosus ([facility])- Primary Fall, subsequent encounter Essential hypertension ([facility]) Unspecified essential hypertension [facility] Diagnosis Urge incontinence- Primary Frequent UTI Urinary tract infection, site not specified Osteoporosis, unspecified osteoporosis type, unspecified pathological fracture presence- Primary [facility] Diagnosis Urge incontinence- Primary Frequent UTI Urinary tract infection, site not specified Osteoporosis, unspecified osteoporosis type, unspecified pathological fracture presence- Primary Hypothyroidism, unspecified type Age-related osteoporosis without current pathological fracture Vitamin D deficiency [facility] Diagnosis Urge incontinence- Primary Frequent UTI Urinary tract infection, site not specified Kidney stones- Primary Calculus of kidney Urge incontinence Osteoporosis, unspecified osteoporosis type, unspecified pathological fracture presence- Primary documented in [facility] encounter [facility]* Diagnosis Urge incontinence- Primary Frequent UTI Urinary tract infection, site not specified Kidney stones- Primary Calculus of kidney Urge incontinence documented in this encounter [facility]* Diagnosis Primary insomnia Persistent disorder of initiating or maintaining sleep Major depressive disorder, single episode, in full remission Major depressive disorder, 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 documented in this encounter [facility]* Diagnosis Stage 3b chronic kidney disease (CKD) ([facility]) Major depressive disorder, single episode, in full remission Major depressive disorder, 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 Age-related osteoporosis without current pathological fracture Moderate persistent asthma without complication (HCC) Diastolic dysfunction with chronic heart failure (HCC) Chronic idiopathic constipation Unspecified constipation Mild intermittent asthma without complication (HCC) Interstitial pulmonary disease, unspecified (HCC) documented in this encounter [facility]* Diagnosis Urge incontinence- Primary Frequent UTI Urinary tract infection, site not specified Kidney stones- Primary Calculus of kidney Urge incontinence Osteoporosis, unspecified osteoporosis type, unspecified pathological fracture presence- Primary documented in this encounter [facility]* Diagnosis Stage 3b chronic kidney disease (CKD) (CMS-HCC) Major depressive disorder, single episode, in full remission Major depressive disorder, 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 Age-related osteoporosis without current pathological fracture Moderate persistent asthma without complication (HCC) Diastolic dysfunction with chronic heart failure (HCC) Chronic idiopathic constipation Unspecified constipation Mild intermittent asthma without complication (HCC) Interstitial pulmonary disease, unspecified (HCC) Gastroesophageal reflux disease without esophagitis Esophageal reflux documented in this encounter [facility]* Diagnosis Urge incontinence- Primary Frequent UTI Urinary tract infection, site not specified Kidney stones- Primary Calculus of kidney Urge incontinence Osteoporosis, unspecified osteoporosis type, unspecified pathological fracture presence- Primary [facility] Narrative* Abran Maldonado RN [...] Health SystemInstructionsNot on file documented in this encounter[facility] SystemInstructionsNot on file documented in this encounterProMedi[facility] Health SystemInstructionsNot on file documented in this encounterProMediAugmentra Health SystemInstructionsNot on file documented in this encounterProMediAugmentra Health SystemInstructionsNot on file documented in this encounterProMediAugmentra Health SystemInstructionsNot on file documented in this encounterProMediAugmentra Health SystemInstructionsNot on file documented in this encounterProMediAugmentra Health SystemInstructionsNot on file documented in this encounterProMediKidsCash SystemInstructionsNot on file documented in this encounterDayton Children's HospitalKidsCash SystemReason for referral (narrative)* Consultation (Routine) - Authorized Specialty Diagnoses / Procedures Referred By Violette staley Referred To Contact Urology Diagnoses Urinary frequency Procedures ID OFFICE/OUTPATIENT [facility] 60 MINUTES Bia Cao MD [address] [place] [address] Maria C Kramer MD [address] [place] [address] Referral ID Status Reason Start Date Expiration Date Visits Requested Visits Authorized [id number] Authorized Specialty Services Required 07/10/2024 01/06/2025 1 1 [facility] Narrative* Episode Based Medications (Routine) - Authorized Specialty Diagnoses / Procedures Referred By Violette staley Referred To Contact Diagnoses Osteoporosis, unspecified osteoporosis type, unspecified pathological fracture presence Procedures ID ROMOSOZUMAB INJECTION John Johnson MD [address] [facility], [address] [place] [address] Phone: tel: fax: Meggan Hunter [facility] [address] [place] [address] Phone: tel: fax: Referral ID Status Reason Start Date Expiration Date V isits Requested Visits Authorized [id number] Authorized 12/06/2024 12/06/2025 12 12 [facility] Summary Purpose Family History No Family History Records FoundNo Family History Records FoundNo Family History Records FoundNo Family History Records FoundNo Family History Records FoundNo Family History Records FoundNo Family History Records FoundNo Family History Records FoundNo Family History Records FoundNo Family History Records Found Advance Directives No Advanced Directives Records FoundDocuments on File Type Date Recorded Patient Hose Stripper Expl 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 Durable Power of Project Leader 07/16/2021 3:45 PM Living Will 07/16/2021 3:40 PM Date Activated Date Inactivated Comments 03/02/2023 4:15 AM 03/03/2023 3:57 PM Date Activated Date Inactivated Comments 07/03/2021 9:57 AM 07/10/2021 6:07 PM Date Activated Date Inactivated Comments 01/04/2018 4:32 PM 01/06/2018 6:44 PM Date Activated Date Inactivated Comments 01/14/2017 8:37 AM 01/15/2017 5:28 PM Documents on File Type Date Recorded Patient Hose Stripper Expl anation Durable Power of Project Leader 07/16/2021 3:45 PM Living Will 07/16/2021 3:40 [...] W/O W/CONTRAST MATERIAL Mandi Hoover MD [address] [place] [id number] [facility] [place] [address] Referral ID Status Reason Start Date Expiration Date Visits Requested Visits Authorized [id number] Pending Review Auto-Generat ed Referral 08/28/2024 06/08/2025 1 1 Specialty Diagnoses / Procedures Referred By Violette staley Referred To Contact MR IMAGING Diagnoses Benign neoplasm of meninges (HCC) Procedures MRI BRAIN WO/W IVCON MRI BRAIN BRAIN STEM W/O W/CONTRAST MATERIAL Rose Velasquez APRN.CNP [address] [place] [address] [facility] [place] [address] Referral ID Status Reason Start Date Expiration Date Visits Requested Visits Authorized [id number] New Request Auto-Generat ed Referral 09/26/2024 10/26/2025 1 1 Referral ID Status Reason Start Date Expiration Date V isits Requested Visits Authorized [id number] Closed Auto-Generate d Referral 08/28/2024 06/08/2025 1 1 Additional Source Comments INFORMATION SOURCE (unrecogn ized section and content) DATE CREATED AUTHOR 05/16/2018 [facility] DATE CREATED AUTHOR AUTHOR'S ORGANIZ ATION 06/21/2019 [facility] DATE CREATED AUTHOR AUTHOR'S ORGANIZ ATION 11/13/2022 [facility] DATE CREATED AUTHOR AUTHOR'S ORGANIZ ATION 12/07/2022 [facility] dical Specialist DATE CREATED AUTHOR AUTHOR'S ORGANIZ ATION 10/08/2024 [facility] DATE CREATED AUTHOR AUTHOR'S ORGANIZ ATION 04/21/2025 [facility] DATE CREATED AUTHOR AUTHOR'S ORGANIZ ATION 06/15/2025 [facility] DATE CREATED AUTHOR AUTHOR'S ORGANIZ ATION 07/12/2025 [facility] dical Specialists [facility] DATE CREATED AUTHOR AUTHOR'S ORGANIZ ATION 08/08/2025 [facility] DATE CREATED AUTHOR AUTHOR'S ORGANIZ ATION 08/24/2025 [facility] Reason for Visit (unrecogniz ed section and content) Reason Comments Injection evenity Specialty Diagnoses / Procedures Referred By Contac t Referred To Contact Diagnoses Osteoporosis, unspecified osteoporosis type, unspecified pathological fracture presence Procedures ID ROMOSOZUMAB INJECTION John Johnson MD [address] [place] [address] Phone: tel: fax: Meggan Hunter [facility] - [facility] Oncology [address] [place] [address] Phone: tel: fax: Referral ID Status Reason Start Date Expiration Date V isits Requested Visits Authorized [id number] Authorized 12/06/2024 12/06/2025 12 12 Reason Comments Outpatient Infusion Evenity Specialty Diagnoses / Procedures Referred By Contac t Referred To Contact Physical Therapy Diagnoses Muscle weakness (generalized) Procedures TREATMENT Bia Cao MD [address] [place] [address] Jonny Salazar, PT [address] [place] [address] Referral ID Status Reason Start Date Expiration Date V isits Requested Visits Authorized [id number] Authorized 12/08/2023 06/05/2024 99 99 Reason Comments Med Refill Reason Comments Received Outside Medical Records Externa l referral to Neu[facility] [place] triage Nurse Triage Call Appointment Reason Comments Consult Reason Comments New Patient Intracranial Meningi brandon Reason Comments Radiology MRI Specialty Diagnoses / Procedures Referred By Contac t Referred To Contact MR IMAGING Diagnoses Benign neoplasm of meninges (HCC) Procedures MRI BRAIN WO/W IVCON MRI BRAIN BRAIN STEM W/O W/CONTRAST MATERIAL Mandi Hoover MD [address] [place] [address] [place] [address] Referral ID Status Reason Start Date Expiration Date V isits Requested Visits Authorized [id number] Closed Auto-Generate d Referral 08/28/2024 06/08/2025 1 [...] Referred To Contact Otolaryngology Diagnoses Hoarse Procedures ID OFFICE/OUTPATIENT [facility] MDM 60 MINUTES Tae Hardy NP [address] [place] [address] Phone: tel: fax: Katerin Alvarado MD [address] [facility] [address] [place] [address] Phone: tel: fax: Referral ID Status Reason Start Date Expiration Date V isits Requested Visits Authorized [id number] Closed Specialty Services Required 12/26/2024 06/24/2025 1 1 Reason Comments Sore Throat Cough Reason Comments Follow-up 1 month follow up Reason Comments Follow-up Reason Comments Follow-up Thy Reason Onset Date Comments outgoing referral 05/08/2025 Reason Comments Injection Evenity Care Teams (unrecognized sec tion and content) Mortician Helper Relationship Specialty Start Date End Date Jacob Viveros PCP - [employer] 11/22/22 Bia Cao MD [address], [place] [id number] PCP - General Family Medicine 04/29/23 Mortician Helper Relationship Specialty Start Date End Date Jacob Viverso PCP - [employer] 11/22/22 Bia Cao MD [address], [place] [id number] PCP - General Family Medicine 04/29/23 Mortician Helper Relationship Specialty Start Date End Date Jacob Viveros PCP - [employer] 11/22/22 Bia Cao MD [address] [facility] [place] [address] PCP - General Family Medicine 04/29/23 Mortician Helper Relationship Specialty Start Date End Date Jacob Viveros PCP - [employer] 11/22/22 Bia Cao MD [address] [place] [facility] [address] PCP - General Family Medicine 04/29/23 Mortician Helper Relationship Specialty Start Date End Date Jacob Viveros PCP - [employer] 11/22/22 Bia Cao MD [address] [place] [facility] [place] [address] PCP - General Family Medicine 04/29/23 Mortician Helper Relationship Specialty Start Date End Date Jacob Viveros PCP - [employer] 11/22/22 Bia Cao MD [address] [place] [facility] [place] [address] PCP - General Family Medicine 04/29/23 Mortician Helper Relationship Specialty Start Date End Date (Hist), No Pcp PCP - General 11/04/17 Corey Chacon MD [address] [place] [address] NI Referring Team Neurosurgery 03/24/24 Mortician Helper Relationship Specialty Start Date End Date (Hist), No Pcp PCP - General 11/04/17 Corey Chacon MD [address] [place] [address] NI Referring Team Neurosurgery 03/24/24 Mortician Helper Relationship Specialty Start Date End Date (Hist), No Pcp PCP - General 11/04/17 Corey Chacon MD [address] [facility] [address] [place] [address] NI Referring Team Neurosurgery 03/24/24 Mortician Helper Relationship Specialty Start Date End Date (Hist), No Pcp PCP - General 11/04/17 Corey Chacon MD NI Referring Team Neurosurgery 03/24/24 Mortician Helper Relationship Specialty Start Date End Date (Hist), No Pcp PCP - General 11/04/17 Corey Chacon MD NI Referring Team Neurosurgery 03/24/24 Mortician Helper Relationship Specialty Start Date End Date (Hist), No Pcp PCP - General 11/04/17 Corey Chacon MD NI Referring Team Neurosurgery 03/24/24 Mortician Helper Relationship Specialty Start Date End Date Jacob Viveros PCP - [employer] 11/22/21 Bia Cao MD [address] [place] [address] PCP - General Family Medicine 04/29/23 Mortician Helper Relationship Specialty Start Date End Date Jacob Viveros PCP - [employer] 11/22/21 Bia Cao MD [address] [place] [address] PCP - General Family Medicine 04/29/23 Mortician Helper Relationship Specialty Start Date End Date Jacob Viveros PCP - [employer] 11/22/21 Bia Cao MD [address] [place] [address] PCP - General Family Medicine 04/29/23 Mortician Helper Relationship Specialty Start Date End Date [place], Jacob Anny PCP - [employer] 11/22/21 Bia Cao MD [address] [place] [address] PCP - General Family Medicine 04/29/23 Mortician Helper Relationship Specialty Start Date End Date Jackeline Jacob Anny PCP - [employer] 11/22/21 Bia Cao MD [address] [place] [address] PCP - General Family Medicine 04/29/23 Mortician Helper Relationship Specialty Start Date End Date Jacob Viveros PCP - [employer] 11/22/21 Bia Cao MD [address] [place] [address] PCP - General Family Medicine 04/29/23 Mortician Helper Relationship Specialty Start Date End Date Jacob Viveros PCP - [employer] 11/22/21 Bia Cao MD [address] [place] [address] PCP - General Family Medicine 04/29/23 Mortician Helper Relationship Specialty Start Date End Date Jacob Viveros PCP - [employer] 11/22/21 Bia Cao MD [address] [place] [address] PCP - General Family Medicine 04/29/23 Mortician Helper Relationship Specialty Start Date End Date Jacob Viveros PCP - [employer] 11/22/21 Bia Cao MD [address] [place] [address] PCP - General Family Medicine 04/29/23 Mortician Helper Relationship Specialty Start Date End Date Bia Cao MD PCP - General Family Medicine 02/05/23 Mortician Helper Relationship Specialty Start Date End Date Bia Cao MD PCP - General Family Medicine 02/05/23 Mortician Helper Relationship Specialty Start Date End Date Bia Cao MD [address] [place] [address] PCP - General Family Medicine 04/29/23 Bia Cao MD [address] [place] [address] PCP - [employer] 11/22/21 Mortician Helper Relationship Specialty Start Date End Date Bia Cao MD [address] [place] [address] PCP - General Family Medicine 04/29/23 Bia Cao MD [address] [place] [address] PCP - [employer] 11/22/21 Mortician Helper Relationship Specialty Start Date End Date Bia Cao MD [address] [place] [address] PCP - General Family Medicine 04/29/23 Bia Cao MD [address] [place] [address] PCP - [employer] 11/22/21 Mortician Helper Relationship Specialty Start Date End Date Bia Cao MD [address] [place] [address] PCP - General Family Medicine 04/29/23 Bia Cao MD [address] [place] [address] PCP - [employer] 11/22/21 Mortician Helper Relationship Specialty Start Date End Date Bia Cao MD PCP - General Family Medicine 02/05/23 Mortician Helper Relationship Specialty Start Date End Date Bia Cao MD PCP - General Family Medicine 02/05/23 Mortician Helper Relationship Specialty Start Date End Date Bia Cao MD [address] [place] [address] PCP - General Family Medicine 04/29/23 Bia Cao MD [address] [place] [address] PCP - [employer] 11/22/21 Mortician Helper Relationship Specialty Start Date End Date Bia Cao MD [address] [place] [address] PCP - General Family Medicine 04/29/23 Bia Cao MD [address] [place] [address] PCP - [employer] 11/22/21 Mortician Helper Relationship Specialty Start Date End Date Bia Cao MD [address] [facility] [place] [address] PCP - General Family Medicine 04/29/23 Bia Cao MD [address] [place] [address] PCP - [employer] 11/22/21 Mortician Helper Relationship Specialty Start Date End Date Bia Cao MD [address] [place] [address] PCP - General Family Medicine 04/29/23 Bia Cao MD [address] [facility] [place] [address] PCP - [employer] 11/22/21 Mortician Helper Relationship Specialty Start Date End Date Bia Cao MD [address] [facility] [place] [address] PCP - General Family Medicine 04/29/23 Bia Cao MD [address] [facility] [place] [address] PCP - [employer] 11/22/21 Mortician Helper Relationship Specialty Start Date End Date Bia Cao MD [address] [place] [address] PCP - General Family Medicine 04/29/23 Bia Cao MD [address] [facility] [place] [address] PCP - [employer] 11/22/21 Mortician Helper Relationship Specialty Start Date End Date Bia Cao MD [address] [place] [address] PCP - General Family Medicine 04/29/23 Bia Cao MD [address] [place] [address] PCP - [employer] 11/22/21 Mortician Helper Relationship Specialty Start Date End Date Bia Cao MD [address] [place] [address] PCP - General Family Medicine 04/29/23 Bia Cao MD [address] [place] [address] PCP - [employer] 11/22/21 Mortician Helper Relationship Specialty Start Date End Date Bia Cao MD [address] [place] [address] PCP - General Family Medicine 04/29/23 Bia Cao MD [address] [place] [address] PCP - [employer] 11/22/21 Mortician Helper Relationship Specialty Start Date End Date Bia Cao MD [address] [place] [address] PCP - General Family Medicine 04/29/23 Bia Cao MD [address] [place] [address] PCP - [employer] 11/22/21 Mortician Helper Relationship Specialty Start Date End Date Bia Cao MD PCP - General Family Medicine 02/05/23 Mortician Helper Relationship Specialty Start Date End Date Bia Cao MD PCP - General Family Medicine 02/05/23 Mortician Helper Relationship Specialty Start Date End Date Bia Cao MD [address] [place] [address] PCP - General Family Medicine 04/29/23 Bia Cao MD [address] [place] [address] PCP - [employer] 11/22/21 Mortician Helper Relationship Specialty Start Date End Date Bia Cao MD PCP - General Family Medicine 02/05/23 Mortician Helper Relationship Specialty Start Date End Date Bia Cao MD PCP - General Family Medicine 02/05/23 Mortician Helper Relationship Specialty Start Date End Date Bia Cao MD PCP - General Family Medicine 02/05/23 Mortician Helper Relationship Specialty Start Date End Date Bia Cao MD PCP - General Family Medicine 02/05/23 Mortician Helper Relationship Specialty Start Date End Date Bia Cao MD [address] [place] [address] PCP - General Family Medicine 04/29/23 Bia Cao MD [address] [place] [address] PCP - [employer] 11/22/21 Mortician Helper Relationship Specialty Start Date End Date Bia Cao MD PCP - General Family Medicine 02/05/23 Mortician Helper Relationship Specialty Start Date End Date Bia Coa MD PCP - General Family Medicine 02/05/23 Mortician Helper Relationship Specialty Start Date End Date Bia Cao MD PCP - General Family Medicine 02/05/23 Mortician Helper Relationship Specialty Start Date End Date Bia Cao MD PCP - General Family Medicine 02/05/23 Mortician Helper Relationship Specialty Start Date End Date Bia Cao MD [address] [place] [address] PCP - General Family Medicine 04/29/23 Bia Cao MD [address] [place] [address] PCP - [employer] 11/22/21 Mortician Helper Relationship Specialty Start Date End Date Bia Cao MD [address] [place] [address] PCP - General Family Medicine 04/29/23 Bia Cao MD [address] [place] [address] PCP - [employer] 11/22/21 Mortician Helper Relationship Specialty Start Date End Date Bia Cao MD [address] [place] [address] PCP - General Family Medicine 04/29/23 Bia Cao MD [address] [place] [address] PCP - [employer] 11/22/21 Mortician Helper Relationship Specialty Start Date End Date Bia Cao MD PCP - General Family Medicine 02/05/23 Mortician Helper Relationship Specialty Start Date End Date Bia Cao MD [address] [place] [address] PCP - General Family Medicine 04/29/23 Bia Cao MD [address] [place] [address] PCP - [employer] 11/22/21 Mortician Helper Relationship Specialty Start Date End Date Bia Cao MD PCP - General Family Medicine 02/05/23 Mortician Helper Relationship Specialty Start Date End Date [...] any alcohol or drug abuse patient.[facility] the event this information is protected by the Federal Confidentiality of Alcohol and Drug Abuse Patient Records regulations: The Federal rules restrict any use of the information to criminally investigate or prosecute any alcohol or drug abuse patient.[facility]on[facility] the event this information is protected by the Federal Confidentiality of Alcohol and Drug Abuse Patient Records regulations: The Federal rules restrict any use of the information to criminally investigate or prosecute any alcohol or drug abuse patient.[facility]on[facility] the event this information is protected by the Federal Confidentiality of Alcohol and Drug Abuse Patient Records regulations: The Federal rules restrict any use of the information to criminally investigate or prosecute any alcohol or drug abuse patient.[facility]on[facility] the event this information is protected by the Federal Confidentiality of Alcohol and Drug Abuse Patient Records regulations: The Federal rules restrict any use of the information to criminally investigate or prosecute any alcohol or drug abuse patient.[facility]on[facility] the event this information is protected by the Federal Confidentiality of Alcohol and Drug Abuse Patient Records regulations: The Federal rules restrict any use of the information to criminally investigate or prosecute any alcohol or drug abuse patient.[facility] FOR RECORDS PERTAINING TO PATIENTS WHO ARE [...] BE BASED ON THE PRIMARY CLINICAL RECORDS. [facility] [employer] [facility]. provides no warranty or guarantee of the accuracy or completeness of information in this document.
[2025-09-03 11:37] VITALS: BP 131/61; PULSE 78; O2SAT 95
[2025-09-03 11:38] VITALS: BP 155/66; PULSE 76; O2SAT 96
[2025-09-03] MEDS: LIDOCAINE HCL 2% 400 MG/20 ML MDV 8 ML INJ (11:40)
[2025-09-03] MEDS: BUPIVACAINE HCL 0.25% PF 25 MG/10 ML VIAL 2 ML INJ (11:46)
[2025-09-03] MEDS: DEXAMETHASONE SOD PHOS 10 MG/ML VIAL INJ (11:47)
--- NOTE | 2025-09-03 11:51 | P.ON_ITS ---
Date of procedure: 09/03/25 Pre-op diagnosis: Pain due to thoracic spondylosis without myelopathy Post-op diagnosis: same as pre-op Procedure: Procedure: Right T8-9, 9-10 radiofrequency ablation Medications: Bupivacaine 0.25% 2cc, dexamethasone 10mg, lidocaine 2% 6cc The patient was seen and examined in the preoperative holding area.? The site was marked.? Written informed consent was obtained and placed on the chart.? The patient was brought to the medical procedure unit and placed in the prone position.? A timeout was completed verifying correct patient, procedure, positioning, and special requirements.? The skin overlying the target points, the designated medial branch, was prepped and draped in the usual sterile fashion.? The target point was achieved with a 20-gauge 15 cm with a 10 mm curved active tip radiofrequency cannula under direct fluoroscopic visualizatio n.? The needle was inserted at level T8 on the right side. Needle tip position was confirmed with lateral fluoroscopic position.? Motor stimulation was carried out at 2 Hz up to 5 volts with the absence of extremity activity.? This was repeated at level T9, 10 on right side.?? Sensory stimulation was carried out.? Concordant pain was realized at the above- mentioned sites.? Then radiofrequency lesioning was carried out times 90 seconds at 80 degrees times 2 lesions at each level.? The radiofrequency probe was removed prior to cannula removal.? The above-mentioned injectate was placed in 1 mL increments.? The needle was removed.? Insertion sites were covered.? The patient was taken to the postoperative recovery area and monitored for an appropriate length of time before being found suitable for discharge in the company of a responsible adult. Anesthesia: Local Surgeon: Adelfo Hansen Pathology: none sent Condition: stable Disposition: no change
== END 2025-09-03 11:54 | disposition home or self-care (01) ==
PROVIDERS: PCP Family Medicine; Visit Provider Anesthesiology
DX: M47.814 Spondylosis without myelopathy or radiculopathy, thoracic region (principal)
CPT/HCPCS: 64633; 64634; J0665; J1100

== ENCOUNTER 2025-09-17 09:53 | Day surgery (SDC) | payer MEDICARE, SELFPAY ==
--- OUTSIDE RECORDS SUMMARY | 2025-09-17 09:57 | XMS_ITS | Clinical Summary ---
Author Organization [facility] Address [address] [place] [address] Care Team Providers [employer] Name Role Phone (Hist), No Pcp Primary Care Provider Corey Messina MD Unavailable [phone] Allergies Active AllergyReactionsCriticalityNoted DateCommentsAdhesiveOther: See Comments 11/04/2016 States causes blisters/even paper tape Amoxicillin-Pot KehivrmuztlBbqb93/23/2011spartameOther: See CommentsLow 02/12/2017 migraines Clavulanic YuxfJikdTrh34/24/2508CidqthtaqArbaBzi51/24/2017Egg WhiteSwelling 08/14/2011 Says about 1964? and only one arm affected. No rash, hives, or trouble breathing Influenza Virus BvuqhtdcEqhdqovwBzfgmx54/24/3427PtmvbpussiUfqwVwl68/14/2016 YyeanztwdoxsWvwprljiyozGlna40/24/0704UqblhenvkHvsjXjb99/14/2016PenicillinsRash Low11/04/2016 Medications MedicationSigDispense QuantityRefillsLast FilledStart DateEnd DateStatus acetaminophen (TYLENOL) 500 mg tablet Take 500-1,000 mg by mouth three times daily as needed.Active PROAIR HFA 90 mcg/actuation inhaler as needed.Active amitriptyline (ELAVIL) 100 mg tablet Take 100 mg by mouth daily at bedtime.Active atorvastatin (LIPITOR) 40 mg tablet Take 40 mg by mouth once daily.10/27/2017Active carvedilol (COREG) 25 mg tablet Take 25 mg by mouth twice daily.Active cholecalciferol (VITAMIN D3) 1,000 unit tab tablet 1,000 Units once daily.Active diclofenac, EC, (VOLTAREN) 75 mg EC tablet Take 75 mg by mouth twice daily as needed.Active escitalopram oxalate (LEXAPRO) 20 mg tablet Take 20 mg by mouth once daily.Active losartan-hydrochlorothiazide (HYZAAR) 100-25 mg per tablet Take 1 tablet by mouth once daily.Active ezetimibe-simvastatin 10-40 mg (VYTORIN) 10-40 mg per tablet Take by mouth.Active esomeprazole (NEXIUM) 40 mg capsule Take 40 mg by mouth.Active Fenofibrate (LOFIBRA) 160 mg tablet Take 160 mg by mouth once daily.Active fexofenadine (RALPH) 180 mg tablet Take 180 mg by mouth once daily.Active levothyroxine (SYNTHROID) 150 mcg tablet 1 tablet once daily.Active meclizine (ANTIVERT) 25 mg tab Take 25 mg by mouth three times daily as needed.Active omeprazole (PRILOSEC) 20 mg capsule 20 mg once daily.12/02/2016Active rmmpqmupfdwrz-zbyklclwmpdnltwhox-toycqtvhaevpp (MIDRIN) 65-100-325 mg per capsule 1 capsule four times daily as needed.Active cyclobenzaprine (FLEXERIL) 5 mg tablet Take 10 mg by mouth three times daily as needed.Active verapamil SR (CALAN SR, ISOPTIN SR) 120 mg CR tablet 1 tablet three times daily.12/27/2017Active zafirlukast (ACCOLATE) 20 mg tablet 1 tablet twice daily.01/07/2018Active metoclopramide HCl (REGLAN) 10 mg tablet Take 10 mg by mouth every 6 hours as needed.Active magnesium gluconate (MAGONATE) 27 mg (500 mg) tab Take 500 mg by mouth once daily.Active multivitamin tablet Take 1 tablet by mouth once daily.Active calcium carbonate-vitamin D3 600 mg(1,500mg) -800 unit tab Take 1 tablet by mouth once daily.Active topiramate (TOPAMAX) 100 mg tablet 300 mg once daily. 100 mg in the A.M and 200 at bccdltm131Active hydrALAZINE (APRESOLINE) 100 mg tablet take 1 tablet by mouth twice a day then MAY TAKE ADDITIONAL (50 M... (REFER TO PRESCRIPTION NOTES).Active lisinopril-hydroCHLOROthiazide (ZESTORETIC) 20-12.5 mg per tablet Take 1 tablet by mouth every morning.06/01/2023ctive oxybutynin ER (DITROPAN XL) 10 mg 24 hr tablet Take 10 mg by mouth.11/21/2020Active ferrous sulfate 325 mg (65 mg iron) tablet Take 325 mg by mouth.01/18/2024ctive famotidine (PEPCID) 20 mg tablet Take 20 mg by mouth.07/07/2023ctive alendronate (FOSAMAX) 70 mg tablet Take 70 mg by mouth one time a week.01/25/2024ctive naproxen (NAPROSYN) 250 mg tablet Take by mouth as directed.Active therapeutic multivitamin (THERA VITAMIN) tablet Take 1 tablet by mouth.Active Active Problems ProblemNoted DateDiagnosed DateChronic midline low back pain with sciatica 01/27/2018 Social History Tobacco UseTypesPacks/DayYears UsedDateSmoking Tobacco: NeverSmokeless Tobacco: NeverAlcohol UseStandard Drinks/WeekCommentsNo0 (1 standard drink = 0.6 oz pure alcohol)Area Deprivation IndexAnswerDate RecordedNational Score (1-100), lower number is lower brbt035904/04/2024State Score (1-10), lower number is lower risk9 04/04/2024ata from: https://www.neighborhoodatlas.medicine.[facility].edu/. Last address used for [address] 04/04/2024CommentsNoSex and Gender InformationValueDate RecordedSex Assigned at BirthNot on fileLegal Sex Hpkdsd2810/23/2012 8:38 AM ESTGender IdentityNot on fileSexual OrientationNot on file Last Filed Vital Signs Vital SignReadingTime TakenCommentsBlood Rmawgbkw881/8111 1:39 PM EST Rbhdj266409/26/2024 1:39 PM BRBJywxswjxgct36.5 ??C (97.7 ??F)04/04/2024 11:29 AM EDTRespiratory Zsec931204/04/2024 11:29 AM EDTOxygen Wjdvwtgwsv31%09/26/2024 1:39 PM ESTInhaled Oxygen Concentration--Fzhlbk85 kg (147 lb 11.3 oz)09/26/2024 1:39 PM YZVUselli400 cm (5' 3 )04/04/2024 11:29 AM EDTBody Mass Index26.17004/04/2024 11:29 AM EDT Plan of Treatment DateTypeDepartmentCare Team (Latest Contact Info)Nrqzhimiuyy21/10/2025 11:20 AM ESTAppointment Radiology [address] [place] [address] 1 year f/up10/03/2025 11:00 AM [facility] [address] [place] [address] Vanesa Morgan, [employer] 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 [address] [facility] [address] [place] [address] 1 year f/upHealth MaintenanceDue DateLast DoneCommentsAnxiety Screening 1963Depression Rmlfgjrto88/08/1963Shingrix Vaccine (1 of 2)1995 11/22/2009DTaP,Tdap,Td Vaccine (1 - Tdap)RSV Vaccine (1 - 1- dose 75+ series)2020Advance Directive Yadbttimrx26/01/2025Medicare Advantage Annual Wellness Visit5Covid-19 Vaccine ( season) 504/, 02/12/2021Influenza Vaccine (#1), 08/30/2019, 08/29/2018, Additional history existsDiabetes Fqnbtwkoq69/22/2027 02/11/2024, 01/11/2024, 2023, Additional history existsPneumococcal Vaccine: 50+Nlaizopnw39/22/2020, 08/13/2015Bone Density ScreeningCompleted 12/03/2023Mammogram BiafmeloiMubnjfdifjyy89/02/2024, 02/22/2024, 12/13/2020, Additional history exists Insurance * Guarantor: Angela Ruth TypeRelation to PatientDate of BirthPhone Billing AddressPersonal/WxoqkiWbwm1945 [address] [place] [address] Care Teams Team MemberRelationshipSpecialtyStart DateEnd Date (Hist), No Pcp PCP - Bwquurx57/14/17 Corey Chacon MD [place] Referring TeamNeurosurgery03/24/24
--- OUTSIDE RECORDS SUMMARY | 2025-09-17 10:22 | XMS_ITS | CCD ---
Author Organization [facility] Providers Care Client Server Developer Name Role Phone LENNY PEDRAZA Unavailable Unavailable AUDREY HORN Unavailable Unavailable AUDREY HRON Unavailable Unavailable LENNY PEDRAZA Unavailable Unavailable NASH, BIA Mccormick Primary Care Unavailable NASH, BIA Mccormick Primary Care Unavailable Jacob Viveros Unavailable Unavailable Nash GARCIA, Bia Anny Primary Care Provider (Hist), No Pcp Primary Care Provider Unavailabl e Oswaldo GARCIA, Corey Castillo Unavailable [phone] Corey Chacon MD Unavailable ROSE VELASQUEZ Attending Unavailable HOOVERMANDI Referring Unavailable HOOVERMANDI Attending Unavailable HOOVERMANDI RUIZ Referring Unavailable Jacob Viveros Unavailable Unavailable Nash GARCIA, Bia Mccormick Primary Care Provider Nash GARCIA, Bia Anny Unavailable Nash GARCIA, Bia Anny Primary Care Provider Nash GARCIA, Bia Mccormick Primary Care Provider JOHN JOHNSON [...] Mccormick Primary Care Unavailable NASH, BIA Mccormick Attending Unavailable KATERIN ALVARADO Attending Unavailable TAE HARDY Referring Unavailable NASH, BIA F Attending Unavailable NASH, BIA F Attending Unavailable NASH, BIA F Attending Unavailable NASH, BIA F Referring Unavailable NASH, BIA Mccormick Attending Unavailable NASH, BIA F Attending Unavailable NASH, BIA F Attending Unavailable NASH, BIA F Attending Unavailable SANTO CHRISTIANSON Attending Unavailable NASH, BIA F Attending Unavailable GIEDRAITIS V, LAURI Referring Unavailabl e NASH, BIA F Primary [...] Unavailable NASH, BIA F Primary Care Unavailable Gicyndi GARCIA, Lauri Arredondo Attending Unavailable Jade GARCIA, Lauri Arredondo Attending Unavailable Giedraitis , Lauri Arredondo Attending Unavailable Giedraitis , Andhector Arredondo Attending Unavailable Giedraitis , Lauri Arredondo Attending Unavailable Giedraitis , Lauri Arredondo Attending Unavailable Giedraitis , Lauri Arredondo Attending Unavailable Allergies Allergy ClassificationReported Allergen(s)Allergy TypeDate of OnsetReaction(s) FacilityAmoxicillin / Clavulanate (1 source)Amoxicillin / ClavulanateDrug Upgbcbh30-39-2016[facility] Aspartame (1 source)AspartameDrug Fjivhon72-87-9957Mtfcv: See CommentsAk[facility] Clavulanate (1 source)ClavulanateDrug Vsfgusz04-22-7119UtgsQsawutizd Clinicegg white (chicken) allergenic extract (1 source)egg white (chicken) allergenic extractDrug Tcybvso19-34-8699Qzfxqmvw [facility] HospitalLincomycin (1 source)LincomycinDrug Relwipd84-83-0452OwaiTnvivkgkf ClinicNSAIDs (1 source)oxaprozinDrug Qwvbnuz87-09-8487PsvfLwtawsgyw ClinicPenicillins (antibiotic) (1 source)PenicillinsDrug Cfsbroc31-13-0895KichNxaddaato Clinic (20 sources)Aspartame; Translations: [ASPARTAME]Drug Qmnvsvc14-44-2436Tjysxcf [facility] (20 sources)Clavulanate; Translations: [CLAVULANIC ACID]Drug Zvutlaf34-82-87[address] [facility] (20 sources)Indomethacin; Translations: [INDOMETHACIN]Drug Fvxhzkc01-15-1117 Unknown, [facility]ensionMad[facility] (20 sources)Influenza VaccinesDrug Kwqqadj30-29-2747TyymJUVJ [facility] (20 sources)Lincomycin; Translations: [LINCOMYCIN]Drug Rtezogs80-25-5074 Anaphylaxis, [facility] (20 sources)LincomycinDrug Slumuwi94-35-8313VbjmjddQRQZ Healthcare (20 sources)Penicillins; Translations: [PENICILLINS]Drug Rzyumdn41-29-2000Roii [facility] (20 sources)Sulfamethoxazole / Trimethoprim; Translations: [SULFAMETHOXAZOLE-TRIMETHOPRIM]Drug Gnzipfb43-43-5215SwscmAUVX Healthcare (20 sources)Sulfonamides (Antibiotic)Drug Quiekqgozbc30-71-6100LuzyoZRBN Healthcare (20 sources)Amoxicillin-Pot Clavulanate; Translations: [AMOXICILLIN-POT CLAVULANATE]Drug Ttnlbzf50-69-4057JfzrPQON Healthcare Work Phone: (20 sources)Clemizole; Translations: [CLEMIZOLE]Propensity to adverse reactions 21-11-5527GafnHXGRMosaic Life Care at St. [facility] (6 sources)Eggs Or Egg-Derived ProductsDrug Ajksncc12-54-0178Ipxwfsgv, Unknown [facility] (20 sources)Other; Translations: [OTHER]Propensity to adverse reactions 57-23-6682Dhsytsfw, Other (See Comments)[facility] Work Phone: (20 sources)Poultry MealPropensity to adverse lcubmyucw37-53-3375[facility] (20 sources)Wound Dressing AdhesiveDrug Gcvsrzs93-50-0582TowmYHSW Healthcare (20 sources)Adhesive agent; Translations: [ADHESIVE]Drug Mprista08-32-8051Pxeqb: See CommentsAkron [facility] Hospital Work Phone: (20 sources)AspartameDrug Jywztfm48-56-9194Oyhod: See Comments, Other (See Comments)[facility] (20 sources)Clindamycin; Translations: [LINCOSAMIDES]Drug Ecmmqmm29-73-2822 AnaphylaxisAkron Children'S Hospital (6 sources)egg white (chicken) allergenic extract; Translations: [EGG WHITE]Drug Qmhcuju69-69-8400FysyhdymZhfkdvuzq Clinic (20 sources)oxaprozin; Translations: [OXAPROZIN]Drug Ikelmlj90-11-5655Vakd [facility] (11 sources)PenicillinsDrug Fwsfube42-45-0388LvzbBvvqzkesd Clinic (20 sources)Influenza Virus Vaccines; Translations: [INFLUENZA VIRUS VACCINES] Drug Gosoaqg68-79-4351GfkfxjeiAkhmhaihv Clinic (20 sources)Egg-Derived ProductsDrug Xpzdnlu45-03-1073Luprlrzl, UnknownMadison Medical Center (20 sources)egg shell membrane; Translations: [EGGSHELL MEMBRANE]Propensity to adverse reactions to cfzt48-21-5486KrkXkndnq Health System (12 sources)PenicillinsPropensity to adverse reactions to bydm40-83-1769Kvok [facility] (15 sources)Gbtqfeva-1-Fy4 Antimigraine Agents; Translations: [CNSXFLRR-9-LK2 ANTIMIGRAINE AGENTS]Propensity to adverse reactions to ratq05-65-9956OegVhayqc Health System (3 sources)chicken allergenic extract; Translations: [POULTRY]Drug Allergy 91-93-0732DinElzxdg Repository (3 sources)Sulfonamides (Antibiotic); Translations: [SULFA (SULFONAMIDE ANTIBIOTICS)]Propensity to adverse reactions to drug (disorder)11-11-2022 [facility] (4 sources)Adhesive agentPropensity to adverse reactions to dwmu91-18-6254 [facility] Medications Current Medications MedicationDrug Class(es)DatesSig (Normalized)Sig (Original)acetaminophen 500 mg oral tablet (20 sources)take 2 tablets by mouth every six hours as needed for pain acetaminophen (TYLENOL EXTRA STRENGTH) 500 mg tablet Take 2 tablets (1,000 mg total) by mouth every6 (six) hours as needed for pain. Activetake 500-1000 mg by mouth every eight hours as neededacetaminophen (TYLENOL) 500 mg tablet Take 500- 1,000 mg by mouth three times daily as needed. Activeacetaminophen 250 mg / aspirin 250 mg / caffeine 65 mg oral tablet (20 sources)Platelet Aggregation Inhibitor, Nonsteroidal Anti-inflammatory Drug, Central Nervous System Stimulant, Methylxanthinetake 1 tablet by mouth every six hours as needed for qotmkyoljsnszmi-oxtxznmmtnkcl-gvjjwzaw (EXCEDRIN MIGRAINE) 250-250-65 mg per tablet Take 1 tablet by mouth every 6 (six) hours as needed for headaches. Activeacetaminophen 325 mg / dichloralphenazone 100 mg / isometheptene 65 mg oral capsule (6 sources)take 1 capsule by mouth every six hours as needed zonhdfijmeaoo-thsdbtyozociqnevqq-jrsfrxtbsehev (MIDRIN) 65-100-325 mg per capsule 1 capsule four times daily as needed. [id number] 200 actuat albuterol 0.09 mg/actuat metered dose inhaler (20 sources)beta2-Adrenergic AgonistStart: 06-04-2023 End: 01-20-3374zxho 2 puff(s) by inhalation every four hours for wheezing albuterol HFA 90 mcg/act inhaler Indications: Mild intermittent asthma without complication (HCC) Inhale 2 puffs every 4 (four) hours if needed for shortness of breath or wheezing 18 g 3 07/10/2025 08/09/2025 ActiveStart: 92-47-7361FWBUGX HFA 90 mcg/actuation inhaler as needed. 0 09/30/2017 Activetake 2 puff(s) by inhalation every four hours as needed for wheezingalbuterol (PROVENTIL HFA;VENTOLIN HFA) 90 mcg/actuation inhaler Inhale 2 puffs every 4 (four) hoursas needed for wheezing or shortness of breath. PRO AIR Activealendronic acid 70 mg oral tablet (20 sources)BisphosphonateStart: 01-25-2024 End: 71-33-6703ekalxlmwjvn (FOSAMAX) 70 mg tablet Take 1 tablet (70 mg total) by mouth every 7 days. 01/25/2024 02/12/2025 DiscontinuedStart: 10-78-4854laed 1 tablet by mouth every weekalendronate (FOSAMAX) 70 mg tablet Take 70 mg by mouth one time a week. 01/25/2024 Activetake 1 tablet by mouth once dailyalendronate (Fosamax) 35 MG tablet 1 tablet 30 minutes before the first food, beverage or medicine of the day with plain water Orally weekly 0 Activeamitriptyline hydrochloride 50 mg oral tablet (20 sources)Tricyclic AntidepressantStart: 11-17-2023 End: 91-70-0711duhr 1 tablet by mouth once dailyamitriptyline (ELAVIL) 50 mg tablet Indications: Migraine without aura and without status migrainosus, not intractable , Psychophysiological insomnia Take 1 tablet (50 mg total) by mouth nightly. 90 tablet 3 02/12/2025 Activetake 1 tablet by mouth once daily at bedtimeamitriptyline (ELAVIL) 100 mg tablet Take 100 mg by mouth daily at bedtime. Activeascorbic acid 500 mg oral tablet (20 sources)Vitamin Ctake 2 tablets by mouth in the morningascorbic acid (VITAMIN C) 500 mg tablet Take 2 tablets (1,000 mg total) by mouth in the morning. ActiveAscorbic Acid (vitamin C) 1000 MG tablet 1 (one) time each day at the same time. Activeaspirin 81 mg delayed release oral tablet (20 sources)Platelet Aggregation Inhibitor, Nonsteroidal Anti-inflammatory Drug take 1 tablet by mouth in the morningaspirin 81 mg Take 1 tablet (81 mg total) by mouth in the morning. Activeatorvastatin 40 mg oral tablet (20 sources)HMG-CoA Reductase InhibitorStart: 10-27-2017 End: 51-62-0519spsr 1 tablet by mouth in the morningatorvastatin (LIPITOR) 40 mg tablet Take 1 tablet (40 mg total) by mouth in the morning. 03/15/2022ctive azithromycin 250 mg oral tablet (2 sources)Macrolide AntimicrobialStart: 01-23-2025 End: 51-02-3742dvdk 2 tablets by mouth once daily, then take 1 tablet by mouth once dailyazithromycin (Zithromax) 250 MG tablet Indications: Acute bronchitis, unspecified organism Take 2 tablets (500 mg) by mouth Daily for 1 day, THEN 1 tablet (250 mg) Daily for 4 days. 6 tablet 01/23/2025 01/27/2025 Active benzonatate 200 mg oral capsule (2 sources)Non-narcotic AntitussiveStart: 01-15-2025 End: 50-18-8335czvw 1 capsule by mouth three times daily as needed for cough benzonatate (Tessalon) 200 MG capsule Indications: Influenza A Take 1 capsule (200 mg) by mouth 3 (three) times a day as needed for cough for up to 7 days Do not crush or chew. 20 capsule 01/15/2025 01/22/2025 Rvjgii071 hr buprenorphine 0.0075 mg/hr transdermal system (20 sources)Partial Opioid AgonistStart: 79-23-9669bnqii 1 dose transdermal route every weekbuprenorphine (BUTRANS) 7.5 mcg/hour patch weekly Place 1 patch on the skin once a week. 07/20/2023ctivecalcium carbonate 1500 mg / cholecalciferol 800 unt oral tablet (20 sources)Vitamin Dtake 1 tablet by mouth once dailycalcium carbonate-vitamin D3 600 mg(1,500mg) -800 units tablet Indications: prevention of vitamin D deficiency Take 600 mg by mouth nightly Indications: prevention of vitamin D deficiency. Activetake 1 tablet by mouth once dailycalcium carbonate-vitamin D3 600 mg(1,500mg) -800 unit tab Take 1 tablet by mouth once daily. Active carvedilol 25 mg oral tablet (20 sources)alpha-Adrenergic To, beta-Adrenergic BlockerStart: 01-12-2024 End: 88-85-4436tkaj 1 tablet by mouth oncecarvedilol (Coreg) 25 MG tablet Indications: Essential hypertension (CMS/HCC) Take 1 tablet (25 mg)by mouth every 12 (twelve) hours 200 tablet 3 01/12/2024 ActiveStart: 12-04-2022 End: 28-89-7046iocr 1 tablet by mouth in the morning, then take 1 tablet by mouth at bedtimecarvediloL (COREG) 25 mg tablet Indications: Essential hypertension Take 1 tablet (25 mg total) by mouth in the morning and 1 tablet (25 mg total) before bedtime. 180 tablet 3 12/04/2022 ActiveStart: 01-24-2018 take 1 tablet by mouth in the morning, then take 1 tablet by mouth at bedtime carvediloL (COREG) 25 mg tablet Indications: Essential hypertension Take 1 tablet (25 mg total) by mouth in the morning and 1 tablet (25 mg total) before bedtime. 180 tablet 3 12/04/2022 Activecarvedilol (Coreg) 25 MG tablet every 12 (twelve) hours. 0 Activecholecalciferol 0.025 mg oral tablet (20 sources)Vitamin Dcholecalciferol, vitamin D3, (VITAMIN D3) 1,000 units tablet Indications: vitamin D deficiency 1 tablet (1,000 Units total) before breakfast Indications: low vitamin D levels. Activecholecalciferol (Vitamin D-3) 25 MCG (1000 UT) tablet 1,000 Units in the morning. Take before meals. Active ciprofloxacin 500 mg oral tablet (6 sources)Quinolone AntimicrobialStart: 01-26-2025 End: 32-21-8338nwaf 1 tablet by mouth in the morningciprofloxacin (Cipro) 500 MG tablet Indications: Acute cystitis without hematuria Take 1 tablet (500 mg) by mouth in the morning and 1 tablet (500 mg) before bedtime. Do all this for 7 days. 14 tablet 01/26/2025 02/02/2025 ActiveStart: 07-03-2024 End: 00-56-1281wmzt 1 tablet by mouth in the morningciprofloxacin (Cipro) 500 MG tablet Indications: Acute cystitis without hematuria Take 1 tablet (500 mg) by mouth in the morning and 1 tablet (500 mg) before bedtime. Do all this for 7 days. 14 tablet 07/11/2024 07/18/2024 ActiveCRANBERRY CONCENTRATE PO (9 sources)take 1 tablet by mouth once dailyCRANBERRY CONCENTRATE PO Take 1 tablet by mouth Daily Activecyclobenzaprine hydrochloride 5 mg oral tablet (6 sources)Muscle Relaxanttake 2 tablets by mouth every eight hours as needed cyclobenzaprine (FLEXERIL) 5 mg tablet Take 10 mg by mouth three times daily as needed. Activediclofenac sodium 75 mg delayed release oral tablet (6 sources)Nonsteroidal Anti-inflammatory Drugtake 1 tablet by mouth every twelve hours as neededdiclofenac, EC, (VOLTAREN) 75 mg EC tablet Take 75 mg by mouth twice daily as needed. Activedoxycycline hyclate 100 mg oral tablet (2 sources)Tetracycline-class DrugStart: 08-14-2024 End: 04-58-1489tmcuixpwtil (Vibra-Tabs) 100 MG tablet Indications: Acute bronchitis, unspecified organism Take 1 tablet (100 mg) by mouth in the morning and 1 tablet (100 mg) before bedtime. Do all this for 10 days. Take with a full glass of water and do not lie down for at least 30 minutes after.. 20 tablet 08/14/2024 08/24/2024 Activeescitalopram 20 mg oral tablet (20 sources)Serotonin Reuptake InhibitorStart: 12-15-2023 End: 58-82-0742rkld 1 tablet by mouth at mealtimeescitalopram (Lexapro) 20 MG tablet Indications: Anxiety Take 1 tablet (20 mg) by mouth in the evening. Take with meals 100 tablet 3 01/03/2025 01/03/2026 Activeesomeprazole 40 mg delayed release oral capsule (6 sources)Proton Pump Inhibitoresomeprazole (NEXIUM) 40 mg capsule Take 40 mg by mouth. Activeezetimibe 10 mg / simvastatin 40 mg oral tablet (6 sources)HMG-CoA Reductase Inhibitor, Dietary Cholesterol Absorption Inhibitor ezetimibe-simvastatin 10-40 mg (VYTORIN) 10-40 mg per tablet Take by mouth. Activefamotidine 20 mg oral tablet (20 sources)Histamine-2 Receptor AntagonistStart: 07-07-2023 End: 64-36-6048oocv 1 tablet by mouth once dailyfamotidine (PEPCID) 20 mg tablet Take 1 tablet (20 mg total) by mouth nightly. 90 tablet 3 11/29/2023 Active fenofibrate 160 mg oral tablet (20 sources)Peroxisome Proliferator Receptor alpha AgonistStart: 11-06-2024 End: 19-79-2222vuzf 1 tablet by mouth in the morningfenofibrate (Triglide) 160 MG tablet Indications: Hyperlipidemia, unspecified hyperlipidemia type Take 1 tablet (160 mg) by mouth in the morning. 40 tablet 11 11/06/2024 ActiveStart: 10-26-2023 End: 16-30-8922vmtu 1 tablet by mouth in the morningfenofibrate (Triglide) 160 MG tablet Indications: Hyperlipidemia, unspecified hyperlipidemia type (CMS/HCC) Take 1 tablet (160 mg) by mouth in the morning. 100 tablet 3 10/26/2023 Active ferrous sulfate 325 mg oral tablet (20 sources)Start: 01-18-2024 End: 86-21-5058sxsm 1 tablet by mouth in the morning, then take 1 tablet by mouth at mealtime, then take 1 tablet by mouth once daily in the morning, then take 1 tablet by mouth once daily at mealtimeferrous sulfate (FeroSuL) 325 (65 FE) mg tablet Take 1 tablet (325 mg total) by mouth in the morning and 1 tablet (325 mg total) in the evening. Take with meals. TAKE 1 TABLET BY MOUTH EVERY MORNING AND 1 TABLET EVERY EVENING WITH MEALS. 60 tablet 2 08/24/2024 Active fexofenadine hydrochloride 180 mg oral tablet (20 sources)Histamine-1 Receptor Antagonisttake 1 tablet by mouth once daily at breakfastfexofenadine (ALLY) 180 mg tablet Take 1 tablet (180 mg total) by mouth daily with breakfast. Activefluticasone propionate 0.05 mg/actuat metered dose nasal spray (20 sources)CorticosteroidStart: 08-23-2023 End: 61-70-6588melt 1-2 spray(s) nasal route in the morningfluticasone (Flonase) 50 MCG/ACT nasal spray Indications: Allergic rhinitis due to pollen, unspecified seasonality Administer 1-2 sprays into each nostril in the morning. Shake gently. Before first use, prime pump. After use, clean tip and replace cap.. 16 g 2 08/23/2023 Tolgtw218 ml glucose 50 mg/ml injection (1 source)Start: 52-34-5098lpcs 25 mL intravenously every hour as mL/hr, intravenous, Continuous PRN, When mainline IV needed., Starting on Wed08/17/25 at 1257, Match IVF to base solution of product being administered to ensure compatibility.hydrALAZINE hydrochloride 100 mg oral tablet (20 sources)Arteriolar VasodilatorStart: 07-26-2023 End: 02-38-6302urhvDJMHFPF (APRESOLINE) 100 mg tablet Indications: Essential hypertension Take one twice a day maytake an additional 50mg daily if Systolic BP is greater than 170 60 tablet 11 02/11/2024 ActivehydrALAZINE (Apresoline) 50 MG tablet Take 50 mg by mouth Only if bp is above 170, an hour after taking 100mg hydralazine. ActivehydroCHLOROthiazide 12.5 mg / lisinopril 20 mg oral tablet (20 sources)Thiazide Diuretic, Angiotensin Converting Enzyme InhibitorStart: 12-06-2023 End: 43-27-1930kctu 1 tablet by mouth in the morninglisinopril- hydroCHLOROthiazide 20-12.5 MG tablet Indications: Essential hypertension Take 1 tablet by mouth in the morning. 90 tablet 3 04/09/2025 ActiveStart: 06-01-2023 take 1 tablet by mouth once in the morninglisinopril-hydroCHLOROthiazide (ZESTORETIC) 20-12.5 mg per tablet Indications: Essential hypertension Take 1 tablet by mouth in the morning. 90 tablet 3 06/01/2023 ActiveStart: 06-01-2023 take 1 tablet by mouth once daily in the morninglisinopril-hydroCHLOROthiazide (ZESTORETIC) 20-12.5 mg per tablet Take 1 tablet by mouth every morning. 06/01/2023 ActivehydroCHLOROthiazide 25 mg / losartan potassium 100 mg oral tablet (6 sources)Thiazide Diuretic, Angiotensin 2 Receptor BlockerStart: 01-24-2018 take 1 tablet by mouth once dailylosartan-hydrochlorothiazide (HYZAAR) 100-25 mg per tablet Take 1 tablet by mouth once daily. 1 01/24/2018 Activeiv contrast (will be provided with radiology test) (2 sources)Start: 09-26-2024 End: 63-98-2810fwodjm 1 dose intravenously onceiv contrast (will be provided with radiology test) [...] administration guidelines link 1 Each 09/26/2024 09/27/2024 ActiveStart: 05-09-2024 End: 77-87-3521wspmgo 1 dose intravenously onceiv contrast (will be provided with radiology test) [...] guidelines link 1 Each 0 05/09/2024 05/10/2024 ActiveL.acidoph/B.animalis/B.longum (FLORAJEN DIGESTION ORAL) (20 sources)take 1 tablet by mouth in the morningL.acidoph/B.animalis/B.longum (FLORAJEN DIGESTION ORAL) Take 1 tablet by mouth in the morning. Active lactobacillus acidophilus 16 mg oral capsule (20 sources)Lactobacillus (Florajen Women) capsule as directed Orally Active levothyroxine sodium 0.15 mg oral tablet (20 sources)l-ThyroxineStart: 01-21-2018 End: 62-97-0115qniasdhtftuzx (SYNTHROID, LEVOTHROID) 150 MCG tablet Indications: Hypothyroidism, unspecified type 6 days a week 90 tablet 1 04/18/2025 Active Magnesium (20 sources)take 2 tablets by mouth in the morningmagnesium 250 mg tablet Indications: for migraine prevention Take 2 tablets (500 mg total) by mouthin the morning. Indications: for migraine prevention. At supper time. Activetake 500 mg by mouth in the morningMAGNESIUM PO Take 500 mg by mouth in the morning. Activetake 500 mg by mouth in the morningMAGNESIUM PO Take 500 mg by mouth in the morning. 0 Activemagnesium gluconate 500 mg oral tablet (6 sources)magnesium gluconate (MAGONATE) 27 mg (500 mg) tab Take 500 mg by mouth once daily. Activemethocarbamol 500 mg oral tablet (20 sources)Muscle RelaxantStart: 51-77-3684aiqvjsykidalZ (ROBAXIN) 500 mg tablet Take 2 tablets (1,000 mg total) by mouth. 04/19/2024 Activemetoclopramide 10 mg oral tablet (6 sources)Dopamine-2 Receptor Antagonisttake 1 tablet by mouth every six hours as neededmetoclopramide HCl (REGLAN) 10 mg tablet Take 10 mg by mouth every 6 hours as needed. Nnonno02 hr mirabegron 50 mg extended release oral tablet (20 sources)beta3-Adrenergic AgonistStart: 37-28-0093ziia 1 tablet by mouth every twenty-four hours in the morningmirabegron (MYRBETRIQ) 50 mg tablet extended release 24 hr Take 1 tablet (50 mg total) by mouth in the morning. 30 tablet 12/19/2024 Activemirtazapine 15 mg oral tablet (20 sources)Start: 12-26-2024 End: 65-26-9895zdsc 1 tablet by mouth at bedtimemirtazapine (Remeron) 15 MG tablet Indications: Primary insomnia , Major depressive disorder, single episode, in full remission TAKE 1 TABLET BY MOUTH AT BEDTIME 90 tablet 06/19/2025 Activemultivitamin tablet (6 sources)take 1 tablet by mouth once dailymultivitamin tablet Take 1 tablet by mouth once daily. Activetake 1 tablet by mouth once dailymultivitamin tablet Take 1 tablet by mouth once daily. 0 Activemultivitamin with minerals (Centrum) 9-200 mg-mcg tablet split tablet (20 sources)multivitamin with minerals (Centrum) 9-200 mg-mcg tablet split tablet multivitamin Multiple Vitamins Activemultivitamin with minerals (Centrum) 9-200 mg-mcg tablet split tablet multivitamin Multiple Vitamins 0 Active omeprazole 40 mg delayed release oral capsule (20 sources)Proton Pump InhibitorStart: 34-70-5720hjxw 1 capsule by mouth in the morningomeprazole (PriLOSEC) [address] capsule Indications: Gastroesophageal reflux disease without esophagitis Take 1 capsule by mouth in the morning 100 capsule 11 07/25/2025 ActiveStart: 11-29-2023 End: 65-53-6906gcpf 1 capsule by mouth in the morningomeprazole (PriLOSEC) 40 mg capsule Indications: Gastroesophageal reflux disease, unspecified whether esophagitis present Take 1 capsule (40 mg total) by mouth in the morning. 180 capsule 3 11/29/2023 ActiveStart: 87-61-7816aquybhexwd (PRILOSEC) 20 mg capsule 20 mg once daily. 12/02/2016 Activeoseltamivir 75 mg oral capsule (2 sources)Neuraminidase InhibitorStart: 01-15-2025 End: 14-86-5830whkv 1 capsule by mouth in the morningoseltamivir (Tamiflu) 75 MG capsule Indications: Influenza A Take 1 capsule (75 mg) by mouth in themorning and 1 capsule (75 mg) before bedtime. Do all this for 5 days. 10 capsule 01/15/2025 01/20/2025 Uesfyl08 hr oxybutynin chloride 10 mg extended release oral tablet (20 sources)Cholinergic Muscarinic AntagonistStart: 11-21-2020 End: 84-04-3064itpq 1 tablet by mouth once daily at breakfastoxybutynin XL (DITROPAN-XL) 10 mg 24 hr tablet Take 1 tablet (10 mg total) by mouth daily with breakfast. 11/21/2020 ActiveStart: 11-21-2020 End: 66-96-1403mdcv 1 tablet by mouth every twenty-four hoursoxybutynin ER (DITROPAN XL) 10 mg 24 hr tablet Take 10 mg by mouth. 11/21/2020 Active polyethylene glycol 3350 94709 mg powder for oral solution (3 sources)Osmotic LaxativeStart: 07-10-2024 End: 42-57-7890dmavyacdqhyb glycol, PEG, 3350 (MiraLax) 17 GM/SCOOP powder Indications: Chronic idiopathic constipation Take 17 g by mouth Daily for 3 days 527 g 2 07/10/2024 07/13/2024 ActivepredniSONE 10 mg oral tablet (4 sources)Start: 01-23-2025 End: 03-68-4360xnla 1 tablet by mouth four times daily, then take 1 tablet by mouth three times daily, then take 1tablet by mouth twice daily, then take 1 tablet by mouth once dailypredniSONE (Deltasone) 10 MG tablet Indications: Acute bronchitis, unspecified organism Take 1 tablet (10 mg) by mouth 4 (four) times a day for 2 days, THEN 1 tablet (10 mg) 3 (three) times a day for2 days, THEN 1 tablet (10 mg) 2 (two) times a day for 2 days, THEN 1 tablet (10 mg) Daily for 2 days. 20 tablet 01/23/2025 01/30/2025 ActiveStart: 08-14-2024 End: 61-77-7126rhrx 1 tablet by mouth once dailypredniSONE (Deltasone) 20 MG tablet Indications: Acute bronchitis, unspecified organism Take 1 tablet (20 mg) by mouth Daily for 5 days 5 tablet 08/14/2024 08/19/2024 Xlhlan8494 ml sodium chloride 9 mg/ml injection (1 source)Start: 53-12-7424mxmg 25 mL intravenously every hour as sizhrq21 mL/hr, intravenous, Continuous PRN, When mainline IV needed., Starting on Wed08/17/25 at 1257, Match IVF to base solution of product being administered to ensure compatibility.therapeutic multivitamin (THERA VITAMIN) tablet (5 sources)therapeutic multivitamin (THERA VITAMIN) tablet Take 1 tablet by mouth. Activetherapeutic multivitamin (THERA VITAMIN) tablet Take 1 tablet by mouth. 0 Activetherapeutic multivitamin (THERAGRAN) tablet (20 sources)take 1 tablet by mouth once daily at dinnertherapeutic multivitamin (THERAGRAN) tablet Take 1 tablet by mouth daily with dinner. Activetopiramate 100 mg oral tablet (6 sources)Start: 79-51-9453xfuebsuatt (TOPAMAX) 100 mg tablet 300 mg once daily. 100 mg in the A.M and 200 at bedtime 0 12/21/2017 Activeubrogepant 100 mg oral tablet (20 sources)Start: 01-07-2024 End: 42-96-1063huzv 1 tablet by mouth once as neededUBRELVY 100 mg tablet Indications: Migraine without aura and without status migrainosus, not intract able Take 100 mg by mouth once as needed (migraine) for up to 1 dose. 16 tablet 12 02/12/2025 Activeverapamil hydrochloride 120 mg extended release oral tablet (6 sources)Calcium Channel BlockerStart: 25-35-9765hqkhdofsp SR (CALAN SR, ISOPTIN SR) 120 mg CR tablet 1 tablet three times daily. 12/27/2017 Active zafirlukast 20 mg oral tablet (20 sources)Leukotriene Receptor AntagonistStart: 01-07-2018 End: 83-17-5673goml 1 tablet by mouth in the morning, then take 1 tablet by mouth at bedtimezafirlukast (ACCOLATE) 20 mg tablet Take 1 tablet (20 mg total) by mouth in the morning and 1 tablet (20 mg total) before bedtime. 10/18/2021 Active Completed/Discontinued Medications MedicationDrug Class(es)DatesSig (Normalized)Sig (Original)acetaminophen 325 mg / butalbital 50 mg / caffeine 40 mg oral tablet (20 sources)Barbiturate, Central Nervous System Stimulant, MethylxanthineStart: 04-23-2023 End: 21-01-7501cpdi 1 tablet by mouth every four hours as needed hcxivfhzgg-xcxhzvpwuagbl-hzriszrj 50-325-40 MG tablet Take 1 tablet by mouth every 4 (four) hours if needed. 04/23/2023 12/08/2024 Discontinuedmeclizine hydrochloride 25 mg oral tablet (20 sources)Antiemetic End: 27-14-1113fnihdcbxr (Antivert) 25 MG tablet Take 25 mg by mouth. 12/08/2024 Discontinuednaproxen 250 mg oral tablet (20 sources)Nonsteroidal Anti-inflammatory Drug End: 68-02-5890oqfmizhq (Naprosyn) 250 MG tablet Take by mouth 12/08/2024 DiscontinuedNIFEdipine 60 mg osmotic 24 hr extended release oral tablet (20 sources)Dihydropyridine Calcium Channel BlockerStart: 04-23-2023 End: 56-37-8190hfot 1 tablet by mouth every twenty-four hours in the morning NIFEdipine XL (Procardia XL) 60 MG 24 hr tablet Take 60 mg by mouth in the morning. 04/23/2023 12/08/2024 Discontinuednitrofurantoin, macrocrystals 25 mg / nitrofurantoin, monohydrate 75 mg oral capsule (7 sources)Nitrofuran AntibacterialStart: 01-01-2025 End: 16-20-7169qawf 1 capsule by mouth in the morningnitrofurantoin, macrocrystal-monohydrate, (Macrobid) 100 MG capsule Indications: Acute cystitis with hematuria Take 1 capsule (100 mg) by mouth in the morning and 1 capsule (100 mg) before bedtime. Do all this for 7 days. 14 capsule 01/01/2025 01/09/2025 Discontinued (Therapy completed)Start: 12-11-2024 End: 52-40-9229tiow 1 capsule by mouth in the morningnitrofurantoin, macrocrystal-monohydrate, (Macrobid) 100 MG capsule Indications: Acute cystitis without hematuria Take 1 capsule (100 mg) by mouth in the morning and 1 capsule (100 mg) before bedtime. Do all this for 7 days. 14 capsule 12/11/2024 12/18/2024 ActiveStart: 07-14-2024 End: 92-97-5585tqhh 1 capsule by mouth in the morningnitrofurantoin, macrocrystal-monohydrate, (Macrobid) 100 MG capsule Indications: Acute cystitis without hematuria Take 1 capsule (100 mg) by mouth in the morning and 1 capsule (100 mg) before bedtime. Do all this for 7 days. 14 capsule 07/14/2024 07/21/2024 Activeromosozumab (20 sources)Start: 08-17-2025 End: 94-62-5155856 mg, subcutaneous, Once, On Wed08/17/25 at 1300, For 1 dose, Bring to room temp for at least 30min in original container. Give sub-Q into abdomen, thigh, or outer area of upper arm. Give two consecutive SubQ injections of 105 mg each for a total dose of 210 mg. Rotate injection sites.Start: 07-20-2025 End: 44-67-7022324 mg, subcutaneous, Once, On Wed07/20/25 at 1315, For 1 dose, Bring to room temp for at least 30min in original container. Give sub-Q into abdomen, thigh, or outer area of upper arm. Give two consecutive SubQ injections of 105 mg each for a total dose of 210 mg. Rotate injection sites.Start: 06-13-2025 End: 03-02-1216476 mg, subcutaneous, Once, On Wed06/13/25 at 1230, For 1 dose, Bring to room temp for at least 30min in original container. Give sub-Q into abdomen, thigh, or outer area of upper arm. Give two consecutive SubQ injections of 105 mg each for a total dose of 210 mg. Rotate injection sites.Start: 05-16-2025 End: 45-88-1074594 mg, subcutaneous, Once, On Wed05/16/25 at 1015, For 1 dose, Bring to room temp for at least 30min in original container. Give sub-Q into abdomen, thigh, or outer area of upper arm. Give two consecutive SubQ injections of 105 mg each for a total dose of 210 mg. Rotate injection sites.Start: 04-18-2025 End: 69-83-9396117 mg, subcutaneous, Once, On Wed04/18/25 at 1015, For 1 dose, Bring to room temp for at least 30min in original container. Give sub-Q into abdomen, thigh, or outer area of upper arm. Give two consecutive SubQ injections of 105 mg each for a total dose of 210 mg. Rotate injection sites.Start: 03-21-2025 End: 12-79-4193622 mg, subcutaneous, Once, On Wed03/21/25 at 1045, For 1 dose, Bring to room temp for at least 30min in original container. Give sub-Q into abdomen, thigh, or outer area of upper arm. Give two consecutive SubQ injections of 105 mg each for a total dose of 210 mg. Rotate injection sites.Start: 02-16-2025 End: 79-32-8785556 mg, subcutaneous, Once, On Wed02/16/25 at 1315, For 1 dose, Bring to room temp for at least 30min in original container. Give sub-Q into abdomen, thigh, or outer area of upper arm. Give two consecutive SubQ injections of 105 mg each for a total dose of 210 mg. Rotate injection sites.Start: 01-12-2025 End: 43-54-6228821 mg, subcutaneous, Once, On Wed01/12/25 at 1300, For 1 dose, Bring to room temp for at least 30min in original container. Give sub-Q into abdomen, thigh, or outer area of upper arm. Give two consecutive SubQ injections of 105 mg each for a total dose of 210 mg. Rotate injection sites.inject 210 mg by subcutaneous injection every 30 daysromosozumab (Evenity) 105 MG/1.17ML prefilled syringe Inject 210 mg under the skin every 30 (thirty) days Active tiZANidine 4 mg oral tablet (20 sources)Central alpha-2 Adrenergic Agonist End: 83-62-5639tkie 1 tablet by mouth once dailytiZANidine (Zanaflex) 4 MG tablet take 0.5 to 2 tablets by mouth nightly 12/08/2024 Discontinuedvitamin b12 1 mg sublingual tablet (14 sources)Vitamin Y51Uphgw: 01-18-2024 End: 73-10-6689kjjj 1 tablet under the tongue in the morningcyanocobalamin (VITAMIN B12) 1,000 mcg tablet, sublingual Place 1 tablet (1,000 mcg total) under the tongue in the morning. 30 tablet 11 01/18/2024 12/19/2024 Discontinued Problems Active Problems Problem ClassificationProblemDateDocumented DateEpisodic/ChronicAbdominal pain (2 sources)Flank pain; Translations: [Unspecified abdominal pain]01-23-2025 EpisodicAcute bronchitis (4 sources)Acute bronchitis; Translations: [Acute bronchitis, unspecified] 57-51-0578XksscvthMgtgaeo disorders (1 source)Anxiety; Translations: [Anxiety disorder, unspecified]01-03-2025 ChronicAsthma (20 sources)Asthma; Translations: [Unspecified asthma, uncomplicated]Onset: 058190-79-1833ZhzwvnkHeygkpk kidney disease (20 sources)Chronic kidney disease stage 3B ; Translations: [Stage 3b chronic kidney disease (CKD)]Onset: 273084-51-9429EisowvmHbwvkmprwyzoo of surgical procedures or medical care (20 sources)Drug-induced hypotension; Translations: [Hypotension due to drugs] Onset: 546167-11-2063HbvzbcacStgmhopyih associated with dizziness or vertigo (2 sources)Dizziness; Translations: [Dizziness and giddiness]42-24-2460Qesbbqmp Conduction disorders (20 sources)First degree atrioventricular block; Translations: [Atrioventricular block, first degree]Onset: 932610-32-1590CzlrqwaAfdampdqzw and other anemia (1 source)Anemia; Translations: [Anemia, unspecified]27-02-2409DogmtufeUlwtoytas of lipid metabolism (20 sources)Hyperlipidemia; Translations: [Hyperlipidemia, unspecified]Onset: 317304-45-2065QajrlscN Codes: Fall (3 sources)FallOnset: 247764-01-5832Mjxazgecls disorders (20 sources)Gastroesophageal reflux disease without esophagitis; Translations: [Gastro-esophageal reflux disease without esophagitis]Onset: 09-15-2021 40-65-1052GafrsfxGjvhigdoz hypertension (20 sources)Essential hypertension; Translations: [Essential (primary) hypertension]Onset: 886037-42-7172LwiydypPyngjxyy of upper limb (1 source)Displaced fracture of proximal phalanx of left little finger, subsequent encounter for fracture with routine healing; Translations: [Displaced fracture of proximal phalanx of left little finger, subsequent encounter for fracture with routine healing]Onset: 32-97-0501QgraddtwDeispgquremtg symptoms and ill-defined conditions (20 sources)Mixed urinary incontinence; Translations: [Mixed incontinence]Onset: 218306-01-1663DedytzsFgvlneiy; including migraine (20 sources)Migraine; Translations: [Migraine, unspecified, not intractable, without status migrainosus]Onset: 12-12-2018 Resolved: 048356-79-9981IgvgbwpXgsupgnxh (2 sources)Influenza due to Influenza A virus; Translations: [Influenza due to other identified influenza virus with other respiratory manifestations] 78-32-6203FpnxiwitJtbmedykxjrla mental health disorders (20 sources)Primary insomnia; Translations: [Primary insomnia]Onset: 12-12-2018 14-23-6728OeawsjjTdpv disorders (20 sources)Depressive disorder; Translations: [Other specified depressive episodes]Onset: 421942-00-3356XpllbydGbesiqs (2 sources)Onychomycosis due to dermatophyte ; Translations: [Tinea unguium] 36-71-3535KrwvchdyRjdlky and vomiting (20 sources)Postoperative nausea and vomiting; Translations: [Nausea with vomiting, unspecified]56-57-0711MuxfknknUsejxlinhgk deficiencies (3 sources)Vitamin D deficiency; Translations: [Vitamin D deficiency, unspecified]Onset: 765876-28-1485XzrgkrfNpiubyxbnztcfo (20 sources)Osteoarthritis of right knee joint; Translations: [Unilateral primary osteoarthritis, right knee]Onset: hronic Osteoporosis (20 sources)Senile osteoporosis; Translations: [Age-related osteoporosis without current pathological fracture]Onset: 12-19-2019 Resolved: 918056-78-9407HiiwtzhXzmzc and ill-defined heart disease (20 sources)Diastolic dysfunction; Translations: [Other ill-defined heart diseases]Onset: 637785-44-3604UgomtpnSxqhk and ill-defined heart disease (20 sources)Left ventricular hypertrophy; Translations: [Cardiomegaly]Onset: 613246-25-5775TikfpyiJivji and unspecified benign neoplasm (2 sources)Intracranial meningioma; Translations: [Benign neoplasm of cerebral meninges]86-47-7828MfddtaaLxpgf and unspecified benign neoplasm (3 sources)Benign neoplasm of meninges; Translations: [Benign neoplasm of meninges, unspecified]18-50-6384AwcvwniPydcp and unspecified benign neoplasm (2 sources)Benign neoplasm of meninges, unspecified; Translations: [Benign neoplasm of meninges (HCC)]Onset: 63-29-2488LzfnocdWrcol connective tissue disease (20 sources)Cramp in lower limb; Translations: [Sleep related leg cramps]Onset: 447546-71-1885JxudiifVkqiw connective tissue disease (1 source)Trigger finger, right ring finger; Translations: [Trigger finger, right ring finger]Onset: 86-93-1661AvekwuicMjzeu connective tissue disease (1 source)Pain in left hand; Translations: [Pain in left hand]Onset: 09-28-2022 EpisodicOther connective tissue disease (4 sources)Pain in toe; Translations: [Pain in right toe(s)]65-79-2323Pjvkfjot Other ear and sense organ disorders (1 source)Sensorineural hearing loss in right ear; Translations: [Unspecified sensorineural hearing loss]57-52-3716YxxmqobOqxis gastrointestinal disorders (20 sources)Chronic idiopathic constipation; Translations: [Chronic idiopathic constipation]Onset: 316071-03-3656HganfahVftev hereditary and degenerative nervous system conditions (20 sources)Essential tremor; Translations: [Essential tremor]Onset: 12-12-2018 75-53-7673DidyddvKujzq hereditary and degenerative nervous system conditions (1 source)Essential tremor; Translations: [Essential tremor]Onset: 12-12-2018 ChronicOther lower respiratory disease (2 sources)Interstitial lung disease; Translations: [Interstitial pulmonary disease, unspecified]28-99-7973SsotfxlIuzhb lower respiratory disease (2 sources)Cough; Translations: [Acute cough]23-18-1472IvqjecopUkbce nervous system disorders (1 source)Mass lesion of brain; Translations: [Other specified disorders of brain]96-80-5900FzikwhqTjfqs nervous system disorders (20 sources)Lesion of brain; Translations: [Disorder of brain, unspecified] Onset: 941891-59-5340DkcaxtkCulea nervous system disorders (20 sources)Chronic pain syndrome; Translations: [Chronic pain syndrome]Onset: 868052-13-9209KmlinzrSbnjg nervous system disorders (20 sources)Carpal tunnel syndrome; Translations: [Carpal tunnel syndrome, unspecified upper limb]Onset: 029318-69-9900ErbcstdNrmek skin disorders (2 sources)Dystrophia unguium; Translations: [Nail dystrophy]05-44-7858Brsxqipk Other upper respiratory disease (2 sources)Allergic rhinitis due to pollen; Translations: [Allergic rhinitis due to pollen]55-52-5311IsdngijMjurv upper respiratory disease (8 sources)Hoarse; Translations: [Dysphonia]47-09-2383YyfjfwbtMekvj upper respiratory disease (2 sources)Senile voice; Translations: [Other diseases of larynx]01-09-2025 EpisodicOther upper respiratory infections (2 sources)Posterior rhinorrhea; Translations: [Chronic sinusitis, unspecified] 51-16-1510UqwnufgNgisa upper respiratory infections (2 sources)Sore throat symptom; Translations: [Acute pharyngitis, unspecified] 37-60-0665KkmmoqukRpttiiqm of female genital organs (16 sources)Midline cystocele; Translations: [Cystocele, midline]Onset: 076695-46-9107UjdawzgKsecijaiowi; intervertebral disc disorders; other back problems (20 sources)Degeneration of lumbosacral intervertebral disc; Translations: [Other intervertebral disc degeneration, lumbosacral region]Onset: 08-14-2011 Resolved: 04-34-613394995934-62-9821UcrmcprApmqezr disorders (20 sources)Acquired hypothyroidism; Translations: [Hypothyroidism, unspecified] Onset: 861636-41-9788YilqeyvPyltfhdfelvh (20 sources)Patient on antidepressant monitoring planOnset: 318937-67-6810 Unclassified (1 source)InjectionOnset: 50-64-0600Htnsdlyowgvv (1 source)EMSOnset: 06-11-7964Dblmapqwijpc (1 source)Low back pain, unspecified; Translations: [Low back pain, unspecified] Onset: 39-18-0786Mmeyuqb tract infections (6 sources)Acute cystitis; Translations: [Acute cystitis without hematuria] Onset: 007104-37-7550Xzqhhwos Past or Other Problems Problem ClassificationProblemDateDocumented DateEpisodic/ChronicAcute and unspecified renal failure (20 sources)Acute renal failure syndrome; Translations: [Acute kidney failure, unspecified]Onset: 721718-85-3155BurbqfgfFuong cerebrovascular disease (20 sources)Hematoma of subdural space of neuraxis; Translations: [SDH (subdural hematoma)]Onset: 01-04-2018 Resolved: 776490-65-3669MqskdjsJmdilfjcyk disorders (20 sources)Adjustment disorder with anxious mood; Translations: [Adjustment disorder with anxiety]Onset: 05-04-2023 Resolved: 075367-52-0740WupzumxDohcdrtw of urinary tract (20 sources)Kidney stone; Translations: [Calculus of kidney]Onset: 03-02-2023 75-35-0571KdurlcegV Codes: Fall (6 sources)Fall; Translations: [Unspecified fall, subsequent encounter]Onset: 147764-42-4978GjzfjphtKvshfoqriofto symptoms and ill-defined conditions (8 sources)Dysuria; Translations: [Dysuria]Onset: 351936-89-3036Bnxenzry Malaise and fatigue (20 sources)Asthenia; Translations: [Weakness]Onset: EpisodicMood disorders (20 sources)Mood disordersOnset: 12-06-2023 Resolved: Other circulatory disease (20 sources)Low blood pressure; Translations: [Hypotension, unspecified]Onset: 250848-67-8194LvfdrjqaWhobc connective tissue disease (20 sources)Bilateral trochanteric bursitis; Translations: [Trochanteric bursitis, right hip]Onset: 425275-69-2328YsghbwbbRhfzq connective tissue disease (20 sources)Recurrent falls ; Translations: [Repeated falls]Onset: 11-01-2017 61-30-5487TuccdpfoBbkbb connective tissue disease (20 sources)History of lumbar fusion; Translations: [Arthrodesis status]Onset: 679141-26-9698ReyxzphaXsxxw connective tissue disease (20 sources)Impingement syndrome of right shoulder region; Translations: [Impingement syndrome of right shoulder]Onset: 415323-56-5570OscudwqbStemv connective tissue disease (20 sources)Muscle spasm of cervical muscle of neck; Translations: [Other muscle spasm]Onset: 567803-49-2762XirwdbjeRdink connective tissue disease (20 sources)Nocturnal muscle spasm ; Translations: [Other muscle spasm]Onset: 887176-69-7737CjtemnqaOyjww connective tissue disease (1 source)Other muscle spasm; Translations: [Other muscle spasm]Onset: 54-98-7949JxjmxurnXgzfh injuries and conditions due to external causes (20 sources)History of fall; Translations: [History of falling]Onset: 11-04-2023 29-84-5424UmnthuddBrsgt lower respiratory disease (20 sources)Nodule of lung; Translations: [Solitary pulmonary nodule]Onset: 874973-96-7136WeacnlacMabic lower respiratory disease (20 sources)Dyspnea; Translations: [Shortness of breath]Onset: 11-06-2019 80-52-0913WcsysggoBlrhp nervous system disorders (20 sources)Impairment of balance; Translations: [Other abnormalities of gait and mobility]Onset: 443917-81-6033OfrsqhuzYkzdd non-traumatic joint disorders (20 sources)Hip pain; Translations: [Pain in right hip]Onset: 10-13-2017 41-57-0642HuxfzzzsSzqlm upper respiratory disease (20 sources)Chronic hoarseness; Translations: [Dysphonia]Onset: 07-24-2020 40-95-4422ZwzsdfimDowyqmrz codes; unclassified (16 sources)Family history of malignant neoplasm of breast in first degree relative; Translations: [Family history of malignant neoplasm of breast]Onset: 145673-31-5826NzucnjwfWeczgpgc codes; unclassified (16 sources)Family history of malignant neoplasm of breast at under age 50 in second degree female relative; Translations: [Family history of malignant neoplasm of breast]Onset: 966467-61-4425XayvndzeZfmvdwao codes; unclassified (16 sources)Family history of malignant neoplasm of ovary in second degree relative; Translations: [Family history of malignant neoplasm of ovary]Onset: 479374-97-0343HzqxcxbuVpscqwess and history of mental health and substance abuse codes (20 sources)H/O: depression; Translations: [Personal history of other mental and behavioral disorders]Onset: 109289-57-7049YcvyuyfrOtdcwvrqspm; intervertebral disc disorders; other back problems (20 sources)Spinal stenosis of lumbar region; Translations: [Spinal stenosis, lumbar region without neurogenic claudication]Onset: 08-14-2011 Resolved: 731388-21-3201Xxrxlluk Results Test NameValueInterpretationReference RangeFacilityCALCIUMon 19-41-6876Tmefxat [Mass/Vol]9.4 mg/dLNormal8.5-10.5POhio State Harding HospitalComment on above: Performed By: #### [place] ####[facility] ([facility])[address] [place] [address] VIRCALCIUMon 70-41-2469Ukmntcl [Mass/Vol]9.4 mg/dLNormal8.5-10.5POhio State Harding HospitalComment on above:Performed By: #### [place] ####[facility] ([facility])[address], [place] [address] VIRCALCIUMon 46-24-2281Lvsndsw [Mass/Vol]9.5 mg/dLNormal8.5-10.5 [facility] SouthComment on above:Performed By: #### [place] ####[facility] ([facility])[address], [place] [address] VIR CALCIUMon 26-28-5320Yluqxrs [Mass/Vol]9.7 mg/dLNormal8.5-10.5POhio State Harding HospitalComment on above:Performed By: #### [place] ####[facility] ([facility])[address] [place] [address] VIRCALCIUMon 04-13-2025 Calcium [Mass/Vol]9.5 mg/dLNormal8.5-10.5POhio State Harding HospitalComment on above:Performed By: #### [place] ####[facility] ([facility])[address] [address] VIRCALCIUMon 12-66-8803Anbwvss [Mass/Vol]9.6 mg/dLNormal8.5-10.5POhio State Harding HospitalComment on above:Performed By: #### [place] ####[facility] ([facility])[address] [address], [place] [address] VIRPOCT Urinalysis Auto, W/O Microscopyon 53-95-1255Certhsjc Poct Urine BloodNegativeAultman Hospital SystemExternal Poct Urine GlucoseNegative [facility] CenterExternal Poct Urine KetonesNegativeAultman Hospital SystemExternal Poct Urine Leukocyte EsteraseNegativeOhioHealth Arthur [facility] External Poct Urine NitriteNegativeOhioHealth Arthur G.H. Bing, [facility], Cancer CenterExternal Poct Urine Ph 5.5POur Lady of Mercy Hospital - AndersonExternal Poct Urine Protein1+[facility] SystemCALCIUMon 50-68-5388Xkjnyfm [Mass/Vol]9.3 mg/dLNormal 8.5-10.5POhio State Harding HospitalComment on above:Performed By: #### [id number] #### [facility] ([id number]) [address], [address] [place], [place] [address]IF ABDOMEN PELVIS WO IV CONTRASTon 33-97-0315RQ ABDOMEN PELVIS WO IV CONTRASTCT ABDOMEN PELVIS WO IV CONTRAST HISTORY: Right flank pain, hematuria, recent urinary tract infection COMPARISON: None. TECHNIQUE: The study consists of helical images obtained through the abdomen and pelvis without theuse of intravenous contrast. Coronal and sagittal reformations [...] electronically signed and approved by the interpreting Radiologist.NormalNot AvailableUrinalysis macro (dipstick) panel (U)on 05-06-9292Fhifixfii, UANegativeNegative - 4(70) +++ mg/dLNOMS HealthcareBlood, UAPositiveNegative - 50 Darryl/mcLNOMS HealthcareClarity, UACloudyNOMS Healthcare Color, UAYellowNOMS HealthcareGlucose, UANegativeNegative - 2000(110) ++++ mg/dL NOMS HealthcareInterpretation and review of laboratory resultsAbnormalNOMS HealthcareKetones, UANegativeNegative - 160(16) ++++ mg/dLNOMS Healthcare Leukocytes, UA3+Negative - 500+++ Obdulio/mcLNOMS HealthcareNitrite, UAPositive Negative - PositiveNOMS HealthcarepH, UA55 - 9NOMS HealthcareProtein, UA2+ Negative - 2000(20) ++++ mg/dLNOMS HealthcareSpec Grav, UA1.021 - 1.03NOMS HealthcareUrobilinogen, UA1.00.2 - 12 mg/dLNOMS HealthcareNOMS Healthcare Laboratory - Microbiology and Antimicrobial susceptibilityon 01-15-2025 SARS-CoV-2 (COVID-19) RNA MICHAEL+probe Ql (Unsp spec)NegativeNOMS HealthcareNo Panel Informationon [id number] APositiveNOMS HealthcareFLU BNegativeNOMS HealthcareInterpretation and review of laboratory resultsAbnormalMadison Medical Center NOMS HealthcareCALCIUMon 92-83-8284Xdjpntj [Mass/Vol]9.8 mg/dLNormal8.5-10.5 [facility] SouthComment on above:Performed By: #### [id number] #### [facility] ([id number]) [address], [address] [place], [place] [address]Irsskawlhk macro (dipstick) panel (U)on 27-48-4341Jszcdwayr, UA NegativeNegative - 4(70) +++ mg/dLNOMS HealthcareBlood, UAPositiveNegative - 50 Darryl/mcLNOMS HealthcareClarity, UACloudyNOMS HealthcareColor, UADark AmberNOOK HealthcareGlucose, UANegativeNegative - 2000(110) ++++ mg/dLNOMS Healthcare Interpretation and review of laboratory resultsAbnormalALTA VIEW HOSPITAL HealthcareKetones, UANegativeNegative - 160(16) ++++ mg/dLNOMS HealthcareLeukocytes, UA4+Negative - 500+++ Obdulio/mcLNOMS HealthcareNitrite, UANegativeNegative - PositiveNOMS HealthcarepH, UA55 - 9NOMS HealthcareProtein, UA3+Negative - 2000(20) ++++ mg/dL NOMS HealthcareSpec Grav, UA1.021 - 1.03NOMS HealthcareUrobilinogen, UA0.20.2 - 12 mg/dLFirstHealth Moore Regional Hospital - RichmondCT BRAIN WO CONTon 36-10-1544QB BRAIN WO CONTCT BRAIN WO CONT CT BRAIN WO CONT HISTORY: Head trauma, fall. COMPARISON: MR brain with and without contrast 03/02/2024. CT brain without contrast 02/11/2024 and 10/20/2023. TECHNIQUE: CT brain obtained without intravenous contrast. Automated exposure control was utilized.All CT scans at this facility use dose [...] with chronic microvascular ischemic changes. Atherosclerotic calcifications ofthe cavernous ICAs and left vertebral artery. Mild [...] Finalized by Dharmesh Mittal on 12/23/2024 8:53 PMNNorth Metro Medical Centerca [facility] Metropolitan Med CenterCT CERVICAL SPINE WO CONTon [id number] CERVICAL SPINE WO CONTCT CERVICAL SPINE WO CONT STUDY: CT CERVICAL [...] degenerative. Similar widening of the right C4-C5 facetwith associated degenerative changes. Mild to moderate degenerative changes at C5-C6 with intervertebral disc space narrowing. Additionalcalcified posterior longitudinal ligament or disc extrusion at T2-T3. Prevertebral, epidural and paraspinal soft tissues appear unremarkable. Levoconvex curvature of the lumbar spine. IMPRESSION: * No evidence of acute fracture or traumatic malalignment. * Degenerative changes as described. Finalized by Dharmesh Mittal on 12/23/2024 8:44 PMNMercy Health Anderson HospitalCT KNEE RT WO CONTon [id number] KNEE RT WO CONTCT KNEE RT WO CONT Clinical history: Chronic knee pain CT right knee without contrast: 12/23/2024 COMPARISON: None PROCEDURE: Axial images were obtained through the knee. Coronal and sagittal reconstructions were performed. All CT scans at this facility use dose modulation, iterative reconstruction, and/or weightbased dosing when appropriate to reduce radiation dose [...] Maria C Singh MD on 12/23/2024 9:54 PMNMercy Health Anderson HospitalXR CHEST 1 VWon 02-12-2621YY CHEST 1 VWXR CHEST 1 VW XR CHEST 1 VW [...] Mark Keita MD on 12/23/2024 8:29 PM IEileen MD have personally reviewed the image(s) and agree with and/or edited the report Finalized by Eileen Negrete MD on 12/23/2024 8:36 PMNormalProCleveland Clinic Medina Hospital HospitalXR HIP RT 2-3 VIEWS W OR WO PELVISon [id number] HIP RT 2-3 VIEWS W OR WO PELVISXR HIP RT 2-3 VIEWS W OR WO PELVIS EXAM: XR HIP RT 2-3 VIEWS W OR WO PELVIS CLINICAL INDICATIONS: fall, R hip pain FINDINGS/IMPRESSION: No acute fracture or traumatic malalignment. Mild degenerative changes of the bilateral hips. Postoperative changes in the lumbar spine. Clips in the pelvis. Finalized by Dharmesh Mittal on 12/23/2024 8:41 PMNormalSelect Medical Specialty Hospital - Columbus SouthXR KNEE RT 3 VWSon 90-01-2587AR KNEE RT 3 VWSXR KNEE RT 3 VWS XR KNEE RT [...] Finalized by Dharmesh Mittal on 12/23/2024 8:56 PMNormalProLas Palmas Medical CenterXR SHOULDER RT MIN 2 VWSon 46-51-5658WU SHOULDER RT MIN 2 VWSXR SHOULDER RT MIN 2 VWS XR SHOULDER [...] by Eileen Negrete MD on 12/23/2024 8:31 PMNormalProMedica [facility] [place] Metropolitan Med CenterLaboratory - Miscellaneous testson 18-79-0065Emmzytk comment (Unsp spec) [Interp]NOMS HealthcareComment on above:This urine was analyzed for the presence of WBC, RBC, bacteria, casts, and other formed elements. Only those elements seen were reported. No Panel Informationon 38-62-4785Nwkmvafsys Organization Information Site ID: QPT Name: [facility] Address: [address] [place] [address], [address] [place] [id number] Director: Angel Noble MDNOMS HealthcareNOMS HealthcareUrinalysis complete panel (U)on 07-21-1344Zvszlayxmb (U)TURBIDAbnormalCLEARNOMS HealthcareBacteria LM.HPF (Urine sed) [#/Area]MANYAbnormalNONE SEEN /HPFNOMS HealthcareBilirubin Ql (U)NegativeNEGATIVENOMS HealthcareColor (U)YELLOWYELLOWNOMS Healthcare Epithelial cells.squamous LM.HPF (Urine sed) [#/Area]NONE SEEN< OR = 5 /HPFNOMS HealthcareGlucose Ql (U)NegativeNEGATIVENOMS HealthcareHemoglobin Ql (U)TRACE AbnormalNEGATIVENOMS HealthcareHyaline casts (Urine sed) [#/Area]NONE SEENNONE SEEN /LPFNOMS HealthcareInterpretation and review of laboratory resultsAbnormal NOMS HealthcareKetones Ql (U)NegativeNEGATIVENOMS HealthcareLeukocyte esterase Test strip Ql (U)3+AbnormalNEGATIVENOMS HealthcareNitrite Ql (U)NegativeNEGATIVE NOMS HealthcarepH (U)6.5 [pH]5.0 - 8.0NOMS HealthcareProtein Ql (U)TRACEAbnormal NEGATIVENOMS HealthcareRBC LM.HPF (Urine sed) [#/Area]0-2< OR = 2 /HPFNOMS HealthcareSpecific gravity (U) [Rel density]1.0171.001 - 1.035NOMS HealthcareWBC LM.HPF (Urine sed) [#/Area]PACKEDAbnormal< OR = 5 /HPFNOMS HealthcareUrinalysis macro (dipstick) panel (U)on 49-62-4434Fmzacffdn, UANegativeNegative - 4(70) +++ mg/dLNOMS HealthcareBlood, UAPositiveNegative - 50 Darryl/mcLNOMS Healthcare Clarity, UACloudyNOMS HealthcareColor, UAYellowNOMS HealthcareGlucose, UA NegativeNegative - 1999(110) ++++ mg/dLNOMS HealthcareInterpretation and review of laboratory resultsAbnormalNOMS HealthcareKetones, UANegativeNegative - 160(16) ++++ mg/dLNOMS HealthcareLeukocytes, UA4+Negative - 500+++ Obdulio/mcLNOMS HealthcareNitrite, UANegativeNegative - PositiveNOMS HealthcarepH, UA65 - 9NOMS HealthcareProtein, UA2+Negative - 1999(20) ++++ mg/dLNOMS HealthcareSpec Grav, UA1.011 - 1.03NOMS HealthcareUrobilinogen, UA0.20.2 - 12 mg/dLNOMS Healthcare NOMS HealthcareXR SPINE LUMBAR 2 OR 3 VWSon 49-75-9644AE SPINE LUMBAR 2 OR 3 VWS XR SPINE LUMBAR 2 OR 3 VWS History: Pain. Postop follow-up Lumbar spine Comparison: 07/03/2021 Findings: Levoscoliosis in the lumbar spine is appreciated. 6 transpedicular screws are appreciated for fusion of L3-L5. On these images hardware appears well- positioned and free of any acute complication. Lateral fusion masses are noted. Laminectomies of L3 and L4 are observed. Pedicles are intact. Asymmetric loss in disc space height is noted T12/L1 1-2. Presumed gallstone. IMPRESSION: Chronic findings are noted. Finalized by Britney Mendoza MD on 11/28/2024 3:13 PMNormalProMedica [facility] Med Center Russ [id number] (NSCAMN) ANGELA RUTH ([id number]) 1945 F Date Time Provider Department 10/04/24 ROSE VELASQUEZ [facility] During your visit today, we recorded the following information about you: Jessica Ashley 10/04/2024 3:20 PM Signed General Call Caller : Angela Contact Reason for Call : Did you speak with Dr. Hoover regarding her most recent appt? Patient requesting return call ? Yes Rose Velasquez, MASOOD.WIRE MILL OPERATOR 10/06/2024 10:09 AM Signed Voicemail left for Angela at [phone]. Call back number given. 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 My note was forward to Dr. Hoover for review. At this time we recommend follow up and new imaging in 1 year. Rose Velasquez, MSN, LEATHER GOODS ASSEMBLER, WIRE MILL OPERATOR Certified Nurse Practitioner Allergies As of Date: [...] Fully Assessed Reason for Visit: Patient Question [5187] Prescriptions as of 10/06/2024 - hydrALAZINE (APRESOLINE) 100 mg tablet take 1 tablet by mouth twice a day then MAY TAKE ADDITIONAL (50 M... (REFER TO PRESCRIPTION NOTES). - lisinopril-hydroCHLOROthiazide (ZESTORETIC) 20-12.5 mg per tablet Take [...] 20 mg by mouth once daily. - losartan-hydrochlorothiazide (HYZAAR) 100-25 mg per tablet Take [...] mg capsule 20 mg once daily. - zlttlsltaqxak-opoyfunyedehtpuywn-knhfrhgwfkdte (MIDRIN) 65-100-325 mg per capsule 1 capsule [...] [M5*01/27/2018 Encounter Status:Closed by ROSE VELASQUEZ on 10/06/24[facility] [id number] Visit ([facility]) ANGELA RUTH ([id number]) 1945 F Date Time Provider Department 09/26/24 1:45 PM ROSE VELASQUEZ [facility] During your visit today, we recorded the following information about you: Pulse Blood pressure Weight 91/minute 143/81 67 kg Rose Velasquez APRN.WIRE MILL OPERATOR 09/26/2024 3:27 PM Signed [facility] [place] [facility] NEURO-ONCOLOGY OUTPATIENT CLINIC NOTE [...] 20 mg capsule 20 mg once daily. cjhywvjgdpoen-vfcsmsszdudcohfnwc-qpqdjgnefkprs (MIDRIN) 65-100-325 mg per capsule 1 capsule [...] 200 at bedtime (Pat (more content not included)...NormalSumma Health Wad[facility] Brain WO and W contrast Solo 85-64-6139NGQRZPHZCD: Stable size of a RIGHT petrous ridge presumed meningioma compared to 03/02/2024. Valet Attendant: ALLYSSA Transcribe Date/Time: Sep 26 2024 2:10P Dictated by : MAUREEN PEARL MD This examination was interpreted and the report reviewed and electronically signed by: MAUREEN PEARL MD on Sep 26 2024 2:14PM [facility] DIVISION OF RADIOLOGY* * *Final Report* * * DATE OF EXAM: Sep 26 2024 12:29PM [facility] 0295 - MRI BRAIN WO/W IVCON [...] extracranial soft tissues otherwise unremarkable. DIVISION OF RADIOLOGYProvider, [facility] [place] - 09/26/2024 * * *Final Report* * [...] petrous ridge presumed meningioma compared to 03/02/2024. Valet Attendant: PSCB Transcribe Date/Time: Sep 26 2024 2:10P Dictated by : MAUREEN PEARL MD This examination was interpreted and the report reviewed and electronically signed by: MAUREEN PEARL MD on Sep 26 2024 2:14PM EST [facility] HospitalRadiology Study observation (narrative)[facility] Brain WO and W contrast IVOrdered By: Ccf Provider on 01-61-2079Bsmcuryzf ClinicMRI BRAIN WO/W IVCONon 62-32-6117GYB BRAIN WO/W IVCON* * *Final Report* * * DATE OF [...] petrous ridge presumed meningioma compared to 03/02/2024. Valet Attendant: PSCB Transcribe Date/Time: Sep 26 2024 2:10P Dictated by : MAUREEN PEARL MD This examination was interpreted and the report reviewed and electronically signed by: MAUREEN PEARL MD on Sep 26 2024 2:14PM EST [id number] Health Institutetory - Microbiology and Antimicrobial susceptibilityon 06-93-5347OSXR-CoV-2 (COVID-19) RNA MICHAEL+probe Ql (Unsp spec)NegativeNOCarondelet HealthNo Panel Informationon 35-98-5344HSD A NegativeNOOK HealthcareFLU BNegativeNOOK HealthcareInterpretation and review of laboratory resultsNormalNOCarondelet HealthNOOK HealthcareXR Thoracic spine 3 Views on 07-11-2024 EXAM: XR Thoracic Spine, Five Views. [...] report is generated using voice recognition reporting (Carmolex,). On occasion [employer], erroneously drops words from the report or replaces the spoken word with similar sounding words. Please call with any questions/concerns regarding this report.* Dictated and transcribed 07/11/2024/tm This report has been electronically signed and approved by the interpreting radiologist. Electronically Signed Shubham Almodovar II, M.D. 2024-07-11 10:01:04 Shubham Ceballos MD - 07/11/2024 EXAM: XR Thoracic Spine, [...] report is generated using voice recognition reporting (Carmolex,). On occasion SmartyPants Vitaminscribe erroneously drops words from the report or replaces the spoken word with similar sounding words. Please call with any questions/concerns regarding this report.* Dictated and transcribed 07/11/2024/tm This report has been electronically signed and approved by the interpreting radiologist. Electronically Signed Shubham Almodovar II, M.D. 2024-07-11 10:01:04 NOMS HealthcareXR Thoracic spine 3 ViewsOrdered By: Shubham Almodovar on 48-59-1176GEAGMadison Medical Center Work Phone: Urinalysis macro (dipstick) panel (U)on 07-10-2024 Bilirubin, UANegativeNegative - 4(70) +++ mg/dLNOMS HealthcareBlood, UAPositive Negative - 50 Darryl/mcLNOMS HealthcareClarity, UACloudyNOMS HealthcareColor, UA YellowNOMS HealthcareGlucose, UANegativeNegative - 2000(110) ++++ mg/dLNOMS HealthcareInterpretation and review of laboratory resultsAbnormalNOMS Healthcare Ketones, UANegativeNegative - 160(16) ++++ mg/dLNOMS HealthcareLeukocytes, UA3+ Negative - 500+++ Obdulio/mcLNOMS HealthcareNitrite, UAPositiveNegative - Positive NOMS HealthcarepH, UA6.55 - 9NOMS HealthcareProtein, UA2+Negative - 2000(20) ++++ mg/dLNOMS HealthcareSpec Grav, UA1.0101 - 1.03NOMS HealthcareUrobilinogen, UA1.00.2 - 12 mg/dLNOMS HealthcareNOMS HealthcareXR Thoracic spine 3 Viewson 64-96-8214Isfrvsbse Study observation (narrative)[facility] Medical CenterCNOVon 33-38-8829LKPVRlxiyo Visit (NSCAMN) ANGELA RUTH ([id number]) 1945 F Date Time Provider Department 04/04/24 10:30 AM MANDI HOOVER During your visit today, we recorded the following information about you: Temperature Pulse Respiration Blood pressure 97.7 degrees 80/minute 18/minute 105/65 Weight Height 69.6 kg 1.6 m Mandi Hoover MD 04/05/2024 5:50 PM Signed SECTION OF SKULL BASE SURGERY MINIMALLY INVASIVE CRANIAL BASE AND PITUITARY SURGERY PROGRAM Jessica [facility] AND [facility] [place], [facility] CC: Patient Care Team: Bia Cao as PCP ([facility]) Corey Chacon MD as NI Referring Team [...] 6 months with a repeat MRI scan ([place] preference) and clinic visit with one of our skull base team advance practice providers ([place] preference). - follow up with drier tender for hearing loss which is unrelated to [...] Patient is accompanied by her granddaughter (her local truck driver) and great grand daughter). The [...] contrast and shows a 1.2 cm R TEST EQUIPMENT MECHANIC contrast-enhancing lesion concerning for either schwannoma or meningioma- no associated mass effect or edema. The patient takes ASA 81 mg daily for cardioprotection per her PCP. The patient has been using a cane for the last 5-6 years. The patient reports that ~6 weeks ago, she walked into her garage door and fell. The patient has not seen an drier tender or a vestibular therapist. Past Medical History: [...] tablet 1,000 Units once (more content not included)...NormalProtestant HospitalPNon 71-65-5939WFGK Telephone (NIQ) ANGELA RUTH ([id number]) 1945 F Date Time Provider Department 03/24/24 NEUROLOGY PROVIDER NI During your visit today, we recorded the following information about you: Shelli Fletcher 03/24/2024 5:01 PM Signed Referral source: Corey Chacon MD ([facility]) Reason for visit: consideration of gamma knife for 1.2 cm enhancing lesion at right cerebelloponitine angle with leading differential including vestibular schwannoma and meningioma External records: Sent with referral and pulled from [facility] Triage: Required, forwarded to Brain Tumor Center by telephone encounter sent to [facility] Scheduling Triage. Financial clearance: Not required to schedule Rose Velasquez APRN.[employer] 03/28/2024 10:00 AM Signed Time Frame: First available Provider: Kiko Landrum Soni Referring: Corey Chacon MD Images to be requested from [facility] Dx: Right CPA mass Patient: Angela Ruth Address: Angela Ruth [id number] [place] [address] Per Triage: HISTORY OF PRESENT ILLNESS Angela [...] extracranial soft tissues are unremarkable. Rose Velasquez, MASOOD.WIRE MILL OPERATOR March 28, 2024 Etelvina Trujillo 03/28/2024 10:12 AM Signed Called patient to schedule an appointment. No ans/left message to call the office back. Appointment scheduled: 04/04/2024 10:30 AM (Arrive by 10:15 AM) Mandi Hoover MD [facility] RAMAN Alonso Janette 04/06/2024 10:40 AM Addendum Imaging requested from [employer] AND [facility]. [...] Records [3576] Cmt: External referral to [facility] [place] triage [Other] Nurse Triage Call [185] Appointment [186] Primary Visit Diagnosis:Brain mass [G93.89] [G93.89] Prescriptions as of 04/06/2024 - hydrALAZINE (APRESOLINE) 100 mg tablet take 1 tablet by mouth twice a day then MAY TAKE ADDITIONAL (50 M... (REFER (more content not included)...NormalSouthview Medical Center Abdomen/Pelvis w + w/o Contraston 89-80-7619CB Abdomen/Pelvis w + w/o ContrastCLINICAL INDICATION: Hematuria and bilateral flank pain for [...] and signed by Felix Dominguez on 12/07/2022 1159NoalNorttsehootsooi medical center (formerly [facility])n [facility] HospitalXR HAND LEFT (MIN 3 VIEWS)on 07-01-0320DL HAND LEFT (MIN 3 VIEWS)3 x-ray views of the left hand completed on 10/12/2022 were reviewed independently demonstrating anoblique fracture with mild comminution involving the proximal phalanx of the small finger. No significant change in overall alignment appreciated. Mild interval consolidation across the fracture site noted. Interpreted by: Matt Cowart MD Signed by: Matt Cowart MD 11/07/22 Final resultNormalParkview HealthXR HAND LEFT (MIN 3 VIEWS)3 xray views of the left hand completed on 09/28/2022 were reviewed independently demonstrating whatappears to be a slightly comminuted oblique fracture [...] Signed by: Matt Cowart MD 11/07/22 Final resultNoUniversity Hospitals Elyria Medical CenterXR Chest 2 Views*on 09-10-2022 XR Chest 2 Views*HISTORY: SOB, sternal pain, bronchitis x 1 week [...] and signed by Bartolome Monson on 09/10/2022 1507NormalNoMiami Valley HospitalComplete Blood Count with Auto Diffon 98-51-4674Ikmrzqyok (Bld) [#/Vol]0.07 10*3/uLNormal0.00-0.20Newark HospitalComment on above:Performed By: #### CMP, CBCAD #### [facility] [address], [place] [id number]/100 WBC (Bld)0.9 %NormalNewark HospitalComment on above:Performed By: #### CMP, CBCAD #### [facility] [address], [place] [id number] (Bld) [#/Vol]0.17 10*3/uLNormal0.02-0.50Newark HospitalComment on above:Performed By: #### CMP, CBCAD #### [facility] [address], [place] [id number]/100 WBC (Bld)2.3 %NormalGuernsey Memorial Hospital SpecialistComment on above:Performed By: #### CMP, CBCAD #### [facility] [address], [place] [id number] distribution width (RBC) [Ratio]16.4 %High 11.0-15.0Newark HospitalComment on above:Performed By: #### CMP, CBCAD #### [facility] [address], [place] [id number] (Bld) [Volume fraction]42.9 %Xfdpyr89.0-47.0 Newark HospitalComment on above:Performed By: #### CMP, CBCAD #### [facility] [address], [place] [id number] (Bld) [Mass/Vol]13.5 g/kNLnlygf33.6-15.5NoSelect Medical [facility] SpecialistComment on above:Performed By: #### CMP, CBCAD #### [facility] [address], [place] [id number] (Bld) [#/Vol]2.7 10*3/uLNormal0.9-3.9NortMercy Health St. [facility] SpecialistComment on above:Performed By: #### CMP, CBCAD #### [facility] [address], [place] [id number]/100 WBC (Bld)36.1 %NormalNoSelect Medical [facility] SpecialistComment on above:Performed By: #### CMP, CBCAD #### [facility] [address], [place] [id number] (RBC) [Entitic mass]27.7 xwAcbuaj94.0-33.0NoSelect Medical [facility] SpecialistComment on above:Performed By: #### CMP, CBCAD #### [facility] [address], [place] [id number] (RBC) [Mass/Vol]31.5 g/dLLow32.0-36.0NoSelect Medical [facility] SpecialistComment on above:Performed By: #### CMP, CBCAD #### [facility] [address], [place] [id number] (RBC) [Entitic vol]88 aKVcnver10-705Zhedunpn [place] [facility] SpecialistComment on above:Performed By: #### CMP, CBCAD #### [facility] [address], [place] [id number] (Bld) [#/Vol]0.8 10*3/uLNormal0.2-0.9NoSelect Medical [facility] SpecialistComment on above:Performed By: #### CMP, CBCAD #### [facility] [address], [place] [id number]/100 WBC (Bld)10.8 %NormalNorthern Maine Medical SpecialistComment on above:Performed By: #### CMP, CBCAD #### [facility] [address], [place] [id number] (Bld) [#/Vol]3.7 10*3/uLNormal1.5-7.8NortMercy Health St. Elizabeth [facility] SpecialistComment on above:Performed By: #### CMP, CBCAD #### [facility] [address], [place] [id number]/100 WBC (Bld)49.2 %NormalNoSelect Medical [facility] SpecialistComment on above:Performed By: #### CMP, CBCAD #### [facility] [address], [place] [id number] mean volume (Bld) [Entitic vol]11.00 fLNormal 7.50-12.50NortMercy Health St. [facility] SpecialistComment on above:Performed By: #### CMP, CBCAD #### [facility] [address], [place] [id number] (Bld) [#/Vol]246 10*3/hTEydrto240-706Oizkjrbb [place] [facility] SpecialistComment on above:Performed By: #### CMP, CBCAD #### [facility] [address], [place] [id number] (Bld) [#/Vol]4.88 10*6/uLNormal3.90-5.20NortMercy Health St. [facility] SpecialistComment on above:Performed By: #### CMP, CBCAD #### [facility] [address], [place] [id number]-XO69.1 aWOkuy18.0-50.0NortMercy Health St[address] Elizabeth Boardman HospitalKey Entry Operator Comment on above:Performed By: #### CMP, CBCAD #### [facility] [address], [place] [id number] (Bld) [#/Vol]7.5 10*3/uLNormal3.8-11.0NortMercy Health St[address] [facility] SpecialistComment on above:Performed By: #### CMP, CBCAD #### [facility] [address], [place] [id number] Metabolic Panelon 20-23-7366Ovykhun [Mass/Vol] 4.2 g/dLNormal3.6-5.1[facility] SpecialistComment on above:Performed By: #### CMP, CBCAD #### [facility] [address], [place] [id number]/Globulin [Mass ratio]1.7 {ratio}Normal1.0-2.5NoSelect Medical [facility] SpecialistComment on above:Performed By: #### CMP, CBCAD #### [facility] [address], [place] [id number] [Catalytic activity/Vol]71 U/JWfzfzk00-460Mrfbebxn [place] [facility] SpecialistComment on above:Performed By: #### CMP, CBCAD #### [facility] [address], [place] [id number] [Catalytic activity/Vol]12 U/LNormal6-33NortMercy Health St. [facility] SpecialistComment on above:Result Comment: 10/22/2021 Female reference range changed.Performed By: #### CMP, CBCAD #### [facility] [address], [place] [id number] gap [Moles/Vol]18 mmol/PRdghvj35-68Cqorsirj [place] [facility] SpecialistComment on above:Result Comment: Effective 11/27/2019 reference range changed.Performed By: #### CMP, CBCAD #### [facility] [address], [place] [id number] [Catalytic activity/Vol]15 U/LNormal9-34NoSelect Medical [facility] SpecialistComment on above:Performed By: #### CMP, CBCAD #### [facility] [address], [place] [id number] [Mass/Vol]0.33 mg/dLNormal0.30-1.20NortMercy Health St. [facility] SpecialistComment on above:Performed By: #### CMP, CBCAD #### [facility] [address], [place] [id number]/CREA35 RatioHigh6-22[place] Key Entry Operator Comment on above:Performed By: #### CMP, CBCAD #### [facility] [address], [place] [id number] [Mass/Vol]9.4 mg/dLNormal8.6-10.2[place] [facility] SpecialistComment on above:Performed By: #### CMP, CBCAD #### [facility] [address], [place] [id number] [Moles/Vol]106 mmol/VPgtszj96-477Coloqcuo [place] [facility] SpecialistComment on above:Performed By: #### CMP, CBCAD #### [facility] [address], [place] [id number] [Moles/Vol]24 mmol/GBmnvrx78-49Cqpisomz [place] [facility] SpecialistComment on above:Performed By: #### CMP, CBCAD #### [facility] [address], [place] [id number] [Mass/Vol]0.9 mg/dLNormal0.6-1.4[place] [facility] SpecialistComment on above:Performed By: #### CMP, CBCAD #### [facility] [address], [place] [id number] mL/min/1.05t9Cavjkr>60Norttsehootsooi medical center ([facility])n [place] [facility] SpecialistComment on above:Performed By: #### CMP, CBCAD #### [facility] [address], [place] [id number] mL/min/1.33s9Reu>60NortOhioHealth Dublin Methodist Hospital Key Entry Operator Comment on above:Performed By: #### CMP, CBCAD #### [facility] [address], [place] [id number] (S) [Mass/Vol]2.5 g/dLNormal1.9-3.7[place] [facility] SpecialistComment on above:Performed By: #### CMP, CBCAD #### [facility] [address], [place] [id number] [Mass/Vol]84 mg/lLCfhqar43-14Tixjrvmw [place] [facility] SpecialistComment on above:Result Comment: For FASTING Glucose --- ADA reference ranges: Normal 65-99 mg/dl Prediabetes 100-125 Diabetes >/= 126Performed By: #### CMP, CBCAD #### [facility] [address], [place] [id number] [Moles/Vol]4.3 mmol/LNormal3.5-5.5NoSelect Medical [facility] [place] SpecialistComment on above:Performed By: #### CMP, CBCAD #### [facility] [address], [place] [id number] [Mass/Vol]6.7 g/dLNormal6.1-8.1[facility] SpecialistComment on above:Performed By: #### CMP, CBCAD #### [facility] [address], [place] [id number] [Moles/Vol]143 mmol/LAkvsld480-302Iyvxgjho [facility] SpecialistComment on above:Performed By: #### CMP, CBCAD #### [facility] [address], [place] [id number] nitrogen [Mass/Vol]33 mg/dLHigh7-25NortMercy Health St. [facility] SpecialistComment on above:Performed By: #### CMP, CBCAD #### [facility] [address], [place] [id number] 10-86-7688Zxjmxse [Mass/Vol]10.0 mg/dLNormal 8.4-10.2[facility] Diabetes Care CenterComment on above:Performed By: #### 1030, 1035, 4500, 4510, 4520, 4581 #### [facility] Unless Otherwise Noted [address] [place] [address] / COLAnna #4724/ABISAI # [id number] 26-12-5097Cgdpuwskse [Mass/Vol]0.9 mg/dLNormal0.5-1.0[facility] Diabetes Care CenterComment on above:Performed By: #### 1030, 1035, 4500, 4510, 4520, 4581 #### [facility] Unless Otherwise Noted [address] [address] / COLA #4724/CLIA # [id number] [Mass/Vol]74.8 KgNormalEndocrine and Diabetes Care CenterComment on above:Performed By: #### 1030, 1035, 4500, 4510, 4520, 4581 #### [facility] Unless Otherwise Noted [address] [place] [address] / COLA #4724/CLIA # [id number] [Mass/Vol]64.8 ml/m1.73NormalEndocrine and Diabetes Care CenterComment on above:Performed By: #### 1030, 1035, 4500, 4510, 4520, 4581 #### [facility] Unless Otherwise Noted [address] [address] / COLA #4724/CLIA # [id number] [Mass/Vol]65.1 ml/m1.73NormalEndocrine and Diabetes Care CenterComment on above:Performed By: #### 1030, 1035, 4500, 4510, 4520, 4581 #### [facility] Unless Otherwise Noted [address] [address] / COLA #4724/CLIA # [id number] [Mass/Vol]78.7 ml/m1.73NormalEndocrine and Diabetes Care CenterComment on above:Performed By: #### 1030, 1035, 4500, 4510, 4520, 4581 #### [facility] Unless Otherwise Noted [address] [address] / COLA #4724/CLIA # [id number] 33-42-0640SI24.80 pg/mLNormal2.45-5.93 [facility] Care CenterComment on above:Performed By: #### 1030, 1035, 4500, 4510, 4520, 4581 #### [facility] Unless Otherwise Noted [address] [address] / COLA #4724/CLIA # [id number] 17-98-6238Wjed T4 [Mass/Vol]1.93 ng/dLNormal 0.78-2.44[facility] and Diabetes Care CenterComment on above:Performed By: #### 1030, 1035, 4500, 4510, 4520, 4581 #### [facility] Unless Otherwise Noted [address] [place] [address] / COLA #4724/CLIA # [id number] 93-65-4025XZQ Qn0.57 uIU/mlNormal0.47-4.68 End[facility] Care CenterComment on above:Performed By: #### 1030, 1035, 4500, 4510, 4520, 4581 #### [facility] Unless Otherwise Noted [address] [address] / COLA #4724/CLIA # [id number] D 25on 30-28-2425KKVSEAX D 2551.5 ng/ml Snpuuy39.0-100.0[facility] and Diabetes Care CenterComment on above:Result Comment: Deficient <20 Insufficient 20-<30 Sufficient 30-100 Potiential Toxicity >100Performed By: #### 1030, 1035, 4500, 5510, 8292, 458 #### [facility] Unless Otherwise Noted [address] [facility] [address] [place] [address] / MARÍA #4724/DONNIENELDA # [id number] Metabolic Profon 05-06-2018(cont.)NormalCleveland ClinicComment on above:Result Comment: Average GFR for 70 or more years old: 75 mL/min/1.73sq mChronic Kidney Disease: <60 mL/min/1.73sq mKidney failure: <15 mL/min/1.73sq meGFR calculated using average adult body mass. Additional eGFR calculator available at:http://www.Multiplicom/multiple_crcl_2012.htmPerformedat [facility] [address] [place] [address] [phone] By: #### CDP, BMP ####[address] [address] Anion gap14 mmol/LNormal9-17Cleveland ClinicComment on above:Performed By: #### CDP, BMP ####[address] [address] Vmlqqmm7.6 mg/dLNormal8.6-10.4Cleveland ClinicComment on above:Performed By: #### CDP, BMP ####[address] [address] Hjqrxful911 mmol/LNormal 98-107Cleveland ClinicComment on above:Performed By: #### CDP, BMP ####[address] [address] GB3 26 mmol/RSrewqf85-55FvdsdCleveland ClinicComment on above:Performed By: #### CDP, BMP ####[facility] [address] [address] Ubfeiifupc5.91 mg/dLHigh0.50-0.90[facility] Comment on above:Performed By: #### CDP, BMP ####[address] [address] eGFR (non-black)mL/min/{1.73_m2}Normal >60Cleveland ClinicComment on above:Performed By: #### CDP, BMP ####[address] [address] Glucose mass conc99 mg/yGQfoimi80-36CtqcnMercy Health St. Charles HospitalComment on above: Performed By: #### CDP, BMP ####[address] [address] Potassium molar conc4.2 mmol/LNormal3.7-5.3 Cleveland ClinicComment on above:Performed By: #### CDP, BMP ####[address] [address] Pbidvw228 mmol/HPxtb685-277ZcbfvCleveland ClinicComment on above:Performed By: #### CDP, BMP ####[address] [address] Urea upyojwrp89 mg/dLNormal8-23[facility] Comment on above:Performed By: #### CDP, BMP ####[address] [address] BUN/CRE RatioNOT REPORTEDNormal9-20 Cleveland ClinicComment on above:Performed By: #### CDP, BMP ####[address] [address] Staging:NOT REPORTEDNormalCleveland ClinicComment on above:Performed By: #### CDP, BMP ####[address] [phone] with Diffon 58-31-3283Gfr. Basophil0.10 k/uLNormal0.0-0.2[facility] Tiffin HospitalComment on above:Result Comment: Performed at [facility] [address] [place] [address] Performed By: #### CDP, BMP ####[address] [address] Abs.Neutrophil (Seg)4.00 k/uLNormal1.3-9.1MMercy Health St. Charles HospitalComharbor beach community hospital on above:Performed By: #### CDP, BMP ####[address] [address] Basophils/100 WBC Auto (Bld)1 %Normal0-2MercRegency Hospital ToledoComment on above:Performed By: #### CDP, BMP ####[address] [address] Rgyhpgwtwtb4.20 10*3/uLNormal0.0-0.4[facility] Comment on above:Performed By: #### CDP, BMP ####[address] [address] Eosinophils/100 leukocytes2 %Normal0-4 [facility] ClinicComharbor beach community hospital on above:Performed By: #### CDP, BMP ####[address] [address] Erythrocyte distribution width Auto Ratio (RBC)13.9 %Gbgbxg97.5-14.9[facility] ClinicComharbor beach community hospital on above:Performed By: #### CDP, BMP ####[address] [address] Erythrocytes (RBC)4.68 10*6/uLNormal4.0-5.2MMercy Health St. Charles HospitalComment on above:Performed By: #### CDP, BMP ####[address] [address] Hematocrit (HCT)41.8 %Owrexi74-62RgqaxCleveland Clinic Comment on above:Performed By: #### CDP, BMP ####[address] [address] Hemoglobin mass conc (Bld)13.7 g/dL Eysfib98.0-16.0Cleveland ClinicComment on above:Performed By: #### CDP, BMP ####[address] [address] Hgwzhyrhqvv5.20 10*3/uLNormal1.0-4.8[facility] Comment on above:Performed By: #### CDP, BMP ####[address] [address] Lymphocytes/100 aqgpjyyfig48 %Normal 24-44Cleveland ClinicComment on above:Performed By: #### CDP, BMP ####[address] [address] MCH 29.3 tkUragii61-71WruraCleveland ClinicComment on above:Performed By: #### CDP, BMP ####[address] [address] MCHC mass conc (RBC)32.8 g/aLUwlknv08-00NrodjCleveland ClinicComment on above:Performed By: #### CDP, BMP ####[address] [address] QMW58.3 pVDyiuxo98-381 Cleveland ClinicComment on above:Performed By: #### CDP, BMP ####[address] [address] Hysfcojyi5.90 10*3/uLNormal0.1-1.3Mercy [facility] Tiffin HospitalComment on above:Performed By: #### CDP, BMP ####[address] [address] Monocytes/100 qsekkvlfgm07 %High1-7[facility] Comment on above:Performed By: #### CDP, BMP ####[address] [address] Neutrophil (Seg)47 %Ijqhna80-67JvvdpCleveland ClinicComment on above:Performed By: #### CDP, BMP ####[address] [address] Platelet mean volume (PMV)10.3 fLNormal6.0-12.0[facility] ClinicComharbor beach community hospital on above: Performed By: #### CDP, BMP ####[address] [address] Flthknzqg381 10*3/xSJmunpf002-666DpmvfCleveland ClinicComment on above:Performed By: #### CDP, BMP ####[address] [address] WBC (Leukocytes) 8.4 10*3/uLNormal3.5-11.0C[facility] ClinicComment on above:Performed By: #### CDP, BMP ####[address] [phone] Diff PerformedNOT REPORTEDBethesda North HospitalComment on above:Performed By: #### CDP, BMP ####[address] [place] [address] Erythrocyte morphologyNOT REPORTEDNormalCleveland ClinicComment on above:Performed By: #### CDP, BMP ####[address] [place] [phone] (RBC)NOT REPORTEDNormalCleveland ClinicComment on above:Performed By: #### CDP, BMP ####[address] [address] Granulocytes/100 WBC (Bld)NOT REPORTEDNormal 0.00-0.30Cleveland ClinicComment on above:Performed By: #### CDP, BMP ####[address] [place] [address] Immature granulocytes #/vol (Bld)NOT VQSGBZQTGetspl1XbfgyCleveland Clinic Comment on above:Performed By: #### CDP, BMP ####[address] [address] PlateletsNOT REPORTEDNormOhioHealth Shelby HospitalComment on above:Performed By: #### CDP, BMP ####[address] [address] WBC MorphologyNOT REPORTEDNormalCleveland ClinicComment on above:Performed By: #### CDP, BMP ####[address] [phone] Vital Signs Date TimeVital SignValuePerforming WuuyirqxsZyrjcpav69-97-5727 13:07-0400Body kgzayz202.[address] [place], [place] 6395509-26-2025 13:07-0400Body mass index (BMI) [Ratio]24.61 kg/m2Pfo [address] [place], [place] 6395509-26-2025 13:07-0400Body vignhtchcqv67.2 [degF]Pfo [address] [place], [place] 6395509-26-2025 13:07-0400Body thydts02.[address] [place], [place] 6395509-26-2025 13:07-0400Diastolic blood dxykwjsh69 mm[Hg]Pfo [address] [place], [place] 6395509-26-2025 13:07-0400Heart rate70 /minPfo [address] [place], [place] 6395509-26-2025 13:07-0400Respiratory rate16 /minPfo [address] [place], [place] 6395509-26-2025 13:07-3446WcQ6% (BldA) [Mass fraction]96 %[address]09-26-2025 13:07-0400Systolic blood zhxwuzgs951 mm[Hg] o [address] [place], [place] 6395508-29-2025 13:14-0400Body rdhits130.5 cmPfo 1 [facility]08-29-2025 13:14-0400Body mass index (BMI) [Ratio]24.94 kg/m2Pfo [address] [place], [place] 5616608-29-2025 13:14-0400Body lgeyvinjdeq63.49 [degF]Pfo [address] [place], [place] 5616608-29-2025 13:14-0400Body jbzdpu40.87 kgPfo 1 [facility]08-29-2025 13:14-0400Diastolic blood mm[Hg]Pfo [address] [place], [place] 5616608-29-2025 13:14-0400Heart rate71 /minPfo [address] [place], [place] 5616608-29-2025 13:14-0400Respiratory rate16 /minPfo [address] [place], [place] 5616608-29-2025 13:14-2179JgS1% (BldA) [Mass fraction]95 %[address]08-29-2025 13:14-0400Systolic blood mm[Hg][address]08-19-2025 13:02-0400Body oitbzv702 cmBia Cao MD Work Phone: [facility] CenterCklzwdpscm10-33-5186 13:02-0400Body mass index (BMI) [Ratio]24.16 kg/m2Bia Cao MD Work Phone: [place] [address]Ejdsthyasx89-52-8200 13:02-0400Body .87 kgBia Cao MD Work Phone: [place] [address]Xiskbduyhq73-92-5822 13:02-0400Diastolic blood gjsrirpn30 mm[Hg]Bia Cao MD Work Phone: [facility] CenterDnajncofxa00-79-1942 13:02-0400Heart rate71 /min Bia Cao MD Work Phone: [place] [address]Yfubekzwvi17-32-9522 13:02-0400Respiratory rate18 /minBia Cao MD Work Phone: [place] [address]Tegyiuvhbg28-06-1460 13:02-2958HlI0% (BldA) [Mass fraction]98 %Bia Cao MD Work Phone: [facility] CenterXwftzhlrgy55-68-0783 13:02-0400Systolic blood tsyllabq826 mm[Hg]Bia Cao MD Work Phone: [facility] CenterGlvxfhhzym02-70-1981 13:57-0400Body .5 cmRandall Jauregui PA Work Phone: [facility]07-23-2025 13:57-0400Body mass index (BMI) [Ratio]25.6 kg/v9MvuctbwyRandall Jauregui PA Work Phone: [facility] [employer] Qdoyym73-00-4035 13:57-0400Body .5 kgRandall Jauregui PA Work Phone: [facility]07-23-2025 13:57-0400Diastolic blood hcprtycy24 mm[Hg]Randall Jauregui PA Work Phone: [facility]07-23-2025 13:57-0400Heart rate 74 /minRandall Jauregui PA Work Phone: [facility]07-23-2025 13:57-0400Systolic blood mm[Hg]Randall Jauregui PA Work Phone: [facility]07-23-2025 12:30-0400Body .[address] [place], [place] 5616607-23-2025 12:30-0400Body mass index (BMI) [Ratio]25.71 kg/m2Pfo [address] [place], [place] 5616607-23-2025 12:30-0400Body tfswsfabxuy02.5 [degF]Pfo [address] [place], [place] 5616607-23-2025 12:30-0400Body eghlbk24.[address] [place], [place] 5616607-23-2025 12:30-0400Diastolic blood tydhzmoy13 mm[Hg]Pfo [address] [place], [place] 5616607-23-2025 12:30-0400Heart rate68 /minPfo [address] [place], [place] 5616607-23-2025 12:30-0400Respiratory rate16 /minPfo [address] [place], [place] 5616607-23-2025 12:30-2960SiS9% (BldA) [Mass fraction]98 %Pfo [address] [place], [place] 5616607-23-2025 12:30-0400Systolic blood mm[Hg] Pfo [address] [place], [place] 5616606-25-2025 10:10-0400Body ymiegm501.[address] [place], [place] 3026806-25-2025 10:10-0400Body mass index (BMI) [Ratio]25.86 kg/m2Pfo [address] [place], [place] 5616606-25-2025 10:10-0400Body axfpxuiibbn26.81 [degF]Pfo [address] [place], [place] 5616606-25-2025 10:10-0400Body .14 kgPfo 1 [facility]06-25-2025 10:10-0400Diastolic blood mm[Hg]Pfo [address] [place], [place] 5616606-25-2025 10:10-0400Heart rate77 /minPfo [address] [place], [place] 5616606-25-2025 10:10-0400Respiratory rate16 /minPfo [address] [place], [place] 5616606-25-2025 10:10-1092MuP0% (BldA) [Mass fraction]98 %Pfo [address] [place], [place] 5616606-25-2025 10:10-0400Systolic blood mm[Hg]Pfo [address] [place], [place] 5616605-28-2025 13:24-0400Body glgehe439.5 cmJohn Johnson MD Work Phone: [phone] [place], [place] 5616605-28-2025 13:24-0400Body mass index (BMI) [Ratio]26.31 kg/b7SasnoynJohn Johnson MD Work Phone: 1(670)623-[address] [place], [place] 5616605-28-2025 13:24-0400Body uxszek31.27 kgJohn Johnson MD Work Phone: [phone])401-[address] [place], [place] 5616605-28-2025 13:24-0400Diastolic blood qntyympl12 mm[Hg]John Johnson MD Work Phone: 1(399)779-[address] [place], [place] 5616605-28-2025 13:24-0400Heart rate 73 /minJohn Johnson MD Work Phone: [phone])172-[address] [place], [place] 5616605-28-2025 13:24-0400Systolic blood gwfzqvuj146 mm[Hg]John Johnson MD Work Phone: 1(048)963-[address] [place], [place] 5616605-28-2025 10:18-0400Body .[address] [place], [place] 5616605-28-2025 10:18-0400Body mass index (BMI) [Ratio]26.48 kg/m2Pfo [address] [place], [place] 5616605-28-2025 10:18-0400Body idsaiewskwq16.1 [degF]Pfo [address] [place], [place] 5616605-28-2025 10:18-0400Body iokuvu45.[address] [place], [place] 5616605-28-2025 10:18-0400Diastolic blood ozvlwupu20 mm[Hg]Pfo [address] [place], [place] 5616605-28-2025 10:18-0400Heart rate77 /minPfo [address] [place], [place] 5616605-28-2025 10:18-0400Respiratory rate15 /minPfo [address] [place], [place] 5616605-28-2025 10:18-0290EvT5% (BldA) [Mass fraction]96 %Pfo [address] [place], [place] [address] Xltbdh67-64-0103 10:18-0400Systolic blood tuignxxu927 mm[Hg] [address]05-19-2025 13:33-0400Body cmBia Cao MD Work Phone: [phone] [place], [place] [address]Jbpapkartl58-10-5609 13:33-0400Body mass index (BMI) [Ratio]25.86 kg/m2Bia Cao MD Work Phone: [phone]05-19-2025 13:33-0400Body ekgszk23.22 kgBia Cao MD Work Phone: [phone] [address]-19-2025 13:33-0400Diastolic blood paimyhpp72 mm[Hg]Bia Cao MD Work Phone: [phone])087-[address] [place], [place] [address]Zbzlozsmqd75-66-2430 13:33-0400Heart rate75 /min Bia Cao MD Work Phone: [phone]05-19-2025 13:33-0400Respiratory rate18 /minBia Cao MD Work Phone: 1(523)775-[address] [place] [address]-19-2025 13:33-8405BkB0% (BldA) [Mass fraction]96 %Bia Cao MD Work Phone: [phone] CenterSsljixwzut57-64-3665 13:33-0400Systolic blood ecnhvoac539 mm[Hg]Bia Cao MD Work Phone: [phone] CenterXffawcpcos13-76-2382 10:37-0400Body ebehwn394.[address]04-30-2025 10:37-0400Body mass index (BMI) [Ratio] 26.95 kg/m[address]04-30-2025 10:37-0400Body temperature 97.81 [degF][address]04-30-2025 10:37-0400Body vbticx66.[address]04-30-2025 10:37-0400Diastolic blood iplrmznm91 mm[Hg][address]04-30-2025 10:37-0400Heart rate63 /minPfo 1 [facility]04-30-2025 10:37-0400Respiratory rate15 /minPfo 1 [facility]04-30-2025 10:37-8861GiA7% (BldA) [Mass fraction]99 %Pfo [address] [place], [place] 5616604-30-2025 10:37-0400Systolic blood mrqgrvke144 mm[Hg] Pfo [address] [place], [place] 5616604-08-2025 14:30-0400Body .5 cmRandall WILKINSON Work Phone: [facility]04-08-2025 14:30-0400Body mass index (BMI) [Ratio]26.89 kg/h6XjpxgpoaRandall WILKINSON Work Phone: [facility]04-08-2025 14:30-0400Body rifxvh22.68 kgRandall WILKINSON Work Phone: [facility]04-08-2025 14:30-0400Diastolic blood sjzoyzfq51 mm[Hg]Randall Jauregui PA Work Phone: [facility]04-08-2025 14:30-0400Heart rate 85 /minMicraoul Jauregui PA Work Phone: [facility]04-08-2025 14:30-0400Systolic blood iwzueffn58 mm[Hg]Randall Jauregui PA Work Phone: [facility]03-28-2025 13:05-0400Body yivkwt760.[address] [place], [place] 5616603-28-2025 13:05-0400Body mass index (BMI) [Ratio]27.03 kg/m2Pfo [address] [place], [place] 5616603-28-2025 13:05-0400Body feeprnpnfji35.4 [degF]Pfo [address] [place], [place] 5616603-28-2025 13:05-0400Body hsyicf95.[address] [place], [place] 5616603-28-2025 13:05-0400Diastolic blood iojrqfyi78 mm[Hg]Pfo [address] [place], [place] 5616603-28-2025 13:05-0400Heart rate85 /minPfo [address] [place], [place] 5616603-28-2025 13:05-0400Respiratory rate18 /minPfo [address] [place], [place] 5616603-28-2025 13:05-9649ExK9% (BldA) [Mass fraction]96 %Pfo [address] [place], [place] 5616603-28-2025 13:05-0400Systolic blood eireoixb268 mm[Hg] Pfo [address] [place], [place] 5616603-24-2025 08:08-0400Body mfcbia549.5 Krys Dorsey [employer] OPERATOR Work Phone: [facility]03-24-2025 08:08-0400Body mass index (BMI) [Ratio]27.22 kg/m2Yoanna Dorsey [employer] AS[employer]ER-[employer] MILL OPERATOR Work Phone: [facility]03-24-2025 08:08-0400Body wdyazq69.5 kgYoanna Dorsey [employer] ASSEMBLER-WIRE MILL OPERATOR Work Phone: [facility]03-24-2025 08:08-0400Diastolic blood rlhzezeo79 mm[Hg]Yoanna Dorsey [employer] ASSEMBLER-WIRE MILL OPERATOR Work Phone: [facility]03-24-2025 08:08-0400Heart rate 77 /Johnie Dorsey [employer] ASSEMBLER-WIRE MILL OPERATOR Work Phone: [facility]03-24-2025 08:08-0400Systolic blood mm[Hg]Yoanna Dorsey [employer] ASSEMBLER-[employer] MILL OPERATOR Work Phone: [facility]03-04-2025 16:22-0500Body bspyla919 cmBia Cao MD Work Phone: noCarondelet HealthPrtxfxxbft21-60-5384 16:22-0500Body mass index (BMI) [Ratio]25.37 kg/m2Bia Cao MD Work Phone: noCarondelet HealthJhocadynxd18-56-7478 16:22-0500Body temperature 97.39 [degF]Bia Cao MD Work Phone: [facility] CenterFycmvusotk81-60-9576 16:22-0500Body uzkbui73.95 kgBia Cao MD Work Phone: [phone] CenterTvcgvjmqop52-32-6898 16:22-0500Diastolic blood plopjnvy43 mm[Hg]Bia Cao MD Work Phone: [phone] [place], [place] [address]Qtpjemdexe62-97-5617 16:22-0500Heart rate87 /min Bia Cao MD Work Phone: [phone] [place], [place] [address]Gkugolyank39-88-6174 16:22-0500Respiratory rate18 /minBia Cao MD Work Phone: [phone])727-[address] [place], [place] [address]Zuyjuezynh38-69-9799 16:22-5214QhK0% (BldA) [Mass fraction]96 %Bia Cao MD Work Phone: [phone] [place], [place] [address]Raoxtfpxfr11-38-1828 16:22-0500Systolic blood irfsoslb241 mm[Hg]Bia Cao MD Work Phone: 1(628)737-[address] [place], [place] [address]Julfisoejp97-35-6747 14:20-0500Body fgzitu575 cm Bia Cao MD Work Phone: [phone])325-[address] [place], [place] [address]Qwszgkybwl91-98-3805 14:20-0500Body mass index (BMI) [Ratio]26.04 kg/m2Bia Cao MD Work Phone: 1(513)457-[address] [place], [place] [address]Wqngsgqygi50-68-7039 14:20-0500Body hjrwoi36.68 kgBia Cao MD Work Phone: [phone] CenterRoplyasqrl26-72-4209 14:20-0500Diastolic blood nqynymch37 mm[Hg]Bia Cao MD Work Phone: [phone] CenterOlhtacwabw11-39-0873 14:20-0500Heart rate86 /min Bia Cao MD Work Phone: [phone])414-[address] [place], [place] [address]Fnihjzdmyl65-23-4322 14:20-0500Respiratory rate18 /minBia Cao MD Work Phone: [phone] CenterXgzgicwqrp43-16-0563 14:20-9462PeQ5% (BldA) [Mass fraction]94 %Bia Cao MD Work Phone: [phone] [place], [place] [address]24-2025 14:20-0500Systolic blood vujhzbvv249 mm[Hg]Bia Cao MD Work Phone: [facility] CenterFplzigsnvj24-33-1144 12:54-0500Body vyclcu341 cm [address]02-21-2025 12:54-0500Body mass index (BMI) [Ratio] 26.22 kg/m2Pfo [address] [place], [place] 5616602-21-2025 12:54-0500Body .6 [degF]o [address] [place], [place] 5616602-21-2025 12:54-0500Body jakitg12.13 kgPfo 1 [facility]02-21-2025 12:54-0500Diastolic blood yrjhimvx92 mm[Hg]o [address] [place], [place] 5616602-21-2025 12:54-0500Heart rate82 /minPfo [address] [place], [place] 5616602-21-2025 12:54-0500Respiratory rate16 /minPfo [address] [place], [place] 5616602-21-2025 12:54-5170LaL2% (BldA) [Mass fraction]96 %[address]02-21-2025 12:54-0500Systolic blood ggenkmjw872 mm[Hg]Pfo [address] [place], [place] 5616602-20-2025 15:07-0500Body oevhvp781 cmPfo [address] [place] [address] 01-11-2025 15:07-0500Body mass index (BMI) [Ratio]26.22 kg/m2Pfo [address] [place], [place] 5616602-20-2025 15:07-0500Body cwsvfxilmuh87.11 [degF]Pfo [address] [place], [place] 5616602-20-2025 15:07-0500Body .[address] [place], [place] 5616602-20-2025 15:07-0500Diastolic blood mm[Hg]Pfo [address] [place], [place] 5616602-20-2025 15:07-0500Heart rate83 /minPfo [address] [place] [address] 01-11-2025 15:07-0500Respiratory rate16 /minPfo [address] [place] [address] 01-11-2025 15:07-3828DlZ4% (BldA) [Mass fraction]96 %Pf[address]02-20-2025 15:07-0500Systolic blood rqigehjy623 mm[Hg][address]02-18-2025 13:53-0500Body jmbdii847 cmKaterin Alvarado MD Work Phone: [facility] [id number] 13:53-0500Body mass index (BMI) [Ratio]26.57 kg/q5OfahqoKaterin Alvarado MD Work Phone: [place] [id number] 13:53-0500Body asufbv01.04 kgKaterin Alvarado MD Work Phone: [phone]6[place] [address]Spifluudvj69-75-4168 13:53-0500Diastolic blood wrokwrdt82 mm[Hg]Katerin Alvarado MD Work Phone: [facility] CenterHsikalqtzv97-04-6329 13:53-0500Heart rate87 /min Katerin Alvarado MD Work Phone: [place] [phone] 13:53-0500Systolic blood svmkcbij152 mm[Hg]Katerin Alvarado MD Work Phone: [facility] CenterMytezfyltm76-61-1793 09:30-0500Body yxwrtx077 cm Bia Cao MD Work Phone: [facility] CenterQvlejwytxo18-56-2932 09:30-0500Body mass index (BMI) [Ratio]26.57 kg/m2Bia Cao MD Work Phone: [place] [address]Igsnnunmqp19-56-7445 09:30-0500Body rgtfio55.04 Loan Cao MD Work Phone: [place] [address]Vgechfeyal65-37-5202 09:30-0500Diastolic blood ccikplln36 mm[Hg]Bia Cao MD Work Phone: [place] [address]Haagcyoinu60-36-1416 09:30-0500Heart rate85 /min Bia Cao MD Work Phone: [place] [address]Dmqhmjfvay04-84-8425 09:30-0500Respiratory rate18 /minBia Cao MD Work Phone: [facility] CenterQjxxbdiwpx82-04-7604 09:30-2288AzR5% (BldA) [Mass fraction]97 %Bia Cao MD Work Phone: [facility] CenterUbkcycmvzx46-43-6172 09:30-0500Systolic blood yjanzkii088 mm[Hg]Bia Cao MD Work Phone: [facility] CenterZikpznykdx78-18-8708 13:03-0500Body xvncui287 cm Maria C Kramer MD Work Phone: [phone]01-28-2025 13:03-0500Body mass index (BMI) [Ratio]26.39 kg/l6AztzbujMaria C Kramer MD Work Phone: [phone]01-28-2025 13:03-0500Body qfxhno42.59 kgMaria C Kramer MD Work Phone: [phone] [place], [place] [address]01-28-2025 13:03-0500Diastolic blood zcehozky40 mm[Hg]Maria C Kramer MD Work Phone: [phone]01-28-2025 13:03-0500Heart rate 86 /minMaria C Kramer MD Work Phone: [phone]01-28-2025 13:03-0500Systolic blood mm[Hg]Maria C Kramer MD Work Phone: [phone]01-17-2025 11:49-0500Body jcavax779 cmBia Cao MD Work Phone: [facility] CenterDrnufxsrfd14-33-7147 11:49-0500Body mass index (BMI) [Ratio]26.18 kg/m2Bia Cao MD Work Phone: [facility] CenterWzldrpptec00-29-4212 11:49-0500Body jruhtt50.04 kgBia Cao MD Work Phone: [facility] CenterFtmxnoemho49-16-3144 11:49-0500Diastolic blood uiryuyuf19 mm[Hg]Bia Cao MD Work Phone: [facility] CenterNfwprjzwon39-58-6965 11:49-0500Heart rate79 /min Bia Cao MD Work Phone: [facility] CenterSyymuyfjjm81-63-4692 11:49-6186PyI2% (BldA) [Mass fraction]93 %Bia Cao MD Work Phone: [facility] CenterQjqjmfhorb38-09-2255 11:49-0500Systolic blood zkurrecp533 mm[Hg]Bia Cao MD Work Phone: [facility] CenterJwjcrdizib86-23-8355 11:48-0500Body mass index (BMI) [Ratio]26.55 kg/l8RonwsfzJohn Johnson MD Work Phone: [phone]01-15-2025 11:48-0500Body ousoog69.99 kgJohn Johnson MD Work Phone: [phone])[address] [place], [place] 2081601-15-2025 11:48-0500Diastolic blood qvhbemsn05 mm[Hg]John Johnson MD Work Phone: [phone])[address] [place], [place] 2081601-15-2025 11:48-0500Heart rate 87 /minJohn Johnson MD Work Phone: [phone]01-15-2025 11:48-0500Systolic blood prptulcx236 mm[Hg]John Johnson MD Work Phone: [phone])[address] [place], [place] 2081612-09-2024 13:39-0500Body rfragm264 cmSteven Rusher DPM Work Phone: [phone] [place], [place] [address]Papynzkidm02-98-9005 13:39-0500Body mass index (BMI) [Ratio]26.18 kg/v3Ufvbdj Rusher DPM Work Phone: [facility] CenterQfbjrqvnwm48-79-7006 13:39-0500Body peqgjg54.04 kgSteven Rusher DPM Work Phone: [phone] CenterWdglopbfir38-80-2459 13:39-0500Body mass index (BMI) [Ratio]26.17 kg/m2Rose Velasquez LEATHER GOODS ASSEMBLER.WIRE MILL OPERATOR Work Phone: [facility]11-05-2024 13:39-0500Body apbzwi86 kg Rose Velasquez [employer]ER [employer] ASSEMBLER.WIRE MILL OPERATOR Work Phone: [phone]11-05-2024 13:39-0500Diastolic blood xyekqqxx84 mm[Hg]Rose Velasquez [employer]ER [employer] ASSEMBLER.WIRE MILL OPERATOR Work Phone: [phone]11-05-2024 13:39-0500Heart rate91 /min Rose Velasquez [employer]ER GOODS ASSEMBLER.WIRE MILL OPERATOR Work Phone: [phone] [address]-05-2024 13:39-3712TyT1% (BldA) [Mass fraction]96 %Rose Velasquez [employer]ER [employer] ASSEMBLER.WIRE MILL OPERATOR Work Phone: [phone]11-05-2024 13:39-0500Systolic blood qykjnryn534 mm[Hg]Rose Velasquez [employer]ATHER GOODS ASSEMBLER.WIRE MILL OPERATOR Work Phone: [facility]09-23-2024 15:57-0400Body qlegio481 cm Bia Cao MD Work Phone: [facility] CenterMqljtdxlld12-34-7051 15:57-0400Body mass index (BMI) [Ratio]26.18 kg/m2Bia Cao MD Work Phone: [place] [address]Cmaiubuomv74-01-7146 15:57-0400Body tocygj78.04 kgBia Cao MD Work Phone: [place] [address]Cbnueuvfqy82-83-1320 15:57-0400Diastolic blood xveiyusr53 mm[Hg]Bia Cao MD Work Phone: [place] [address]Rdiihdiynu63-52-1872 15:57-0400Heart rate88 /min Bia Cao MD Work Phone: [place] [phone] 15:57-5247NfU1% (BldA) [Mass fraction]95 %Bia Cao MD Work Phone: [place] [address]Jqnighghij23-35-7220 15:57-0400Systolic blood sjezvbig502 mm[Hg]Bia Cao MD Work Phone: [place] [address]Mypppyptzw27-46-2809 11:40-0400Body cm Bia Cao MD Work Phone: [place] [address]Esmizbvvka38-46-3978 11:40-0400Body mass index (BMI) [Ratio]26.43 kg/m2Bia Cao MD Work Phone: [place] [address]Qkfwybhtrn73-68-0407 11:40-0400Body bbxcku54.68 kgBia Cao MD Work Phone: [place] [address]Ribgtvmmvy62-81-8653 11:40-0400Diastolic blood weywfeui91 mm[Hg]Bia Cao MD Work Phone: [place] [address]Lyihkfcnlt53-64-7685 11:40-0400Heart rate77 /min Bia Cao MD Work Phone: [place] [address]Bdausgxdla53-93-6932 11:40-0400Respiratory rate20 /minBia Cao MD Work Phone: [place] [address]Hfofvozdkv02-17-2200 11:40-4758NkV3% (BldA) [Mass fraction]97 %Bia Cao MD Work Phone: [place] [address]Xhhknsqfrs47-29-2103 11:40-0400Systolic blood qrvpftho896 mm[Hg]Bia Cao MD Work Phone: [place] [address]Bzxoudcrpp39-59-1593 15:39-0400Body eknkvo453 cm Bia Cao MD Work Phone: [place] [address]Ebkdrkimre08-52-0087 15:39-0400Body mass index (BMI) [Ratio]27.1 kg/m2Bia Cao MD Work Phone: [place] [address]Ggvcaqbhrz23-96-5921 15:39-0400Body oljrdy58.4 kg Bia Cao MD Work Phone: [place] [address]Icbmoijzni76-66-4955 15:39-0400Diastolic blood fndienmx86 mm[Hg]Bia Cao MD Work Phone: [place] [address]Txlaujvfsr82-25-5488 15:39-0400Heart rate90 /min Bia Cao MD Work Phone: [place] [address]Xaqvcibjkq53-50-6837 15:39-0400Respiratory rate18 /minBia Cao MD Work Phone: [place] [address]Hocurqbczx54-53-0668 15:39-5627XwX8% (BldA) [Mass fraction]97 %Bia Cao MD Work Phone: [place] [address]Iksgmhlwsx46-98-8987 15:39-0400Systolic blood jftyuexs312 mm[Hg]Bia Cao MD Work Phone: [facility] CenterZjrkkqfpua71-35-3022 11:29-0400Body kzgbzu733 cm Mandi Hoover MD Work Phone: [facility]levelTri[facility] HospitalXuvctt53-45-4017 11:29-0400Body mass index (BMI) [Ratio]27.18 kg/y3DwdjhMandi Hoover MD Work Phone: [place] Djcqwb87-30-7627 11:29-0400Body temperature 97.7 [degF]Mandi Hoover MD Work Phone: [place] Miyycg84-77-7758 11:29-0400Body eglois84.6 kgMandi Hoover MD Work Phone: [place] Gzvkof54-76-8995 11:29-0400Diastolic blood zzlaedfl97 mm[Hg]Mandi Hoover MD Work Phone: [place] Vkzhcm82-15-1808 11:29-0400Heart rate80 /min Mandi Hoover MD Work Phone: [phone] Yhrhhq25-22-0542 11:29-0400Respiratory rate 18 /minMandi Hoover MD Work Phone: [place] Kjwion21-51-8983 11:29-5008OpY4% (BldA) [Mass fraction]96 %Mandi Hoover MD Work Phone: [place] Xijhfb97-19-4600 11:29-0400Systolic blood adscdrbj698 mm[Hg]Mandi Hoover MD Work Phone: [facility] Encounters Encounter DateEncounter TypeCare ProviderFacilityStart: 09-03-2025 End: 99-25-4788ahuhvxbrtwFmtxiplDov Hansen MDFacility:[facility] [place] Start: 08-17-2025 End: 76-90-9202fkxnkdckwiIrw Infusion Chair 5D[facility] - Medical OncologyComment on above:Osteoporosis, unspecified osteoporosis type, unspecified pathological fracture presence (Primary Dx)Start: 08-16-2025 ambulatoryTONA [facility] Centertart: 08-06-2025 End: 48-51-5332afavtjfqnsFzfgxagDov Hansen MDFacility:[facility] [place] Start: 07-25-2025 End: 76-01-3365XmuwgzVbfj F Bower MD Work Phone: noJeff[facility] MedicineComment on above: Gastroesophageal reflux disease without esophagitisStart: 07-20-2025 End: 07-49-4687dmzsokpcupLcy Infusion Chair 1DNorth [facility] - Medical OncologyComment on above:Osteoporosis, unspecified osteoporosis type, unspecified pathological fracture presence (Primary Dx)Start: 07-16-2025 End: 18-68-6164Icvgex-up encounterJohn Johnson MD Work Phone: [facility] Adult Endocr[facility]ology, A [facility] of [facility] CenterComment on above:CalciumStart: 95-77-1622vvesxjtqdiUniversity Hospitals Elyria Medical Centertart: 07-10-2025 End: 70-52-6596Ytsoul flowsMagaly Cao MD Work Phone: noProv[facility] Hospitaltart: 07-10-2025 End: 12-26-8843Btmqlt Devan Cao MD Work Phone: noProvidence [facility] Hospitaltart: 07-10-2025 End: 96-62-3011Cqloel outpatient visit 25 minutesBia Cao MD Work Phone: [facility] HospitalComment on above:Stage 3b chronic kidney disease (CKD) ([facility]-HCC); Major depressive disorder, single episode, in full remission ; Age-related osteoporosis without current pathological fracture ; Moderate persistent asthma without complication (HCC); Diastolic dysfunction with chronic heart failure (HCC); Chronic idiopathic constipation; Mild intermittent asthma without complication (HCC); Interstitial pulmonary disease, unspecified (HCC)Start: 07-10-2025 End: 12-91-9879dkhboxwxvjGGFM F BOWERNot AvailableStart: 07-02-2025 End: 94-43-8814qobirbdxisEvtznpkPolina Hansen MDFacility:[facility] [place] Start: 06-26-2025 End: 98-33-9664bjxdhmsbrsMRBY BOWERNot AvailableStart: 06-26-2025 End: 54-63-2555Qzgfivcel encounterBia Cao MD Work Phone: [facility]art: 06-19-2025 End: 60-49-0355HkjjrjEtyazp Majors NP Work Phone: [facility] HospitalComment on above:Primary insomnia; Major depressive disorder, single episode, in full remissionStart: 06-13-2025 End: 21-62-2822Bgmbzc-up encounterJohn Johnson MD Work Phone: [facility] Adult Endocr[facility]ology, A Department of [facility] CenterComment on above:CalciumStart: 06-13-2025 End: 91-00-1250Ztxwqi outpatient visit 15 minutesRandall WILKINSON Work Phone: [facility] Genito-Urinary SurgeonsComment on above:Kidney stones (Primary Dx); Urge incontinenceStart: 06-13-2025 End: 75-54-3997mlnkvhsrecUVCOMWES I MURPHYTrumbull [facility] Start: 06-13-2025 End: 49-47-4387hacdqkjkroEkl Infusion Chair [address] [place] [address] - Medical OncologyComment on above:Osteoporosis, unspecified osteoporosis type, unspecified pathological fracture presence (Primary Dx)Start: 06-12-2025 ambulatoryAdventist Health Tehachapi HospitalStart: 05-16-2025 End: 39-59-4912ocpuhvdldhWut Infusion Chair Pieter Hunter [place] - Medical OncologyComment on above:Osteoporosis, unspecified osteoporosis type, unspecified pathological fracture presence (Primary Dx)Start: 05-15-2025 ambulatoryAdventist Health Tehachapi HospitalStart: 05-14-2025 End: 67-23-5121xkwtnznzcsUzhhlrmDov Hansen MDFacility:[facility] Start: 05-08-2025 End: 18-72-9259Kkpggllyw encounterHinan Alvarado MD Work Phone: noms CI ENTComment on above:outgoing referralStart: 04-23-2025 End: 10-07-4661luiamcfoibWmozilqDov Hansen MDFacility:[facility] Start: 04-18-2025 End: 01-41-2481Ilezyd outpatient visit 25 minutesJohn Johnson MD Work Phone: pOpelousas General Hospitaldxu Adult Endocrinology, A Department of [facility] CenterComment on above:Osteoporosis, unspecified osteoporosis type, unspecified pathological fracture presence (Primary Dx); Hypothyroidism, unspecified type; Age-related osteoporosis without current pathological fracture; Vitamin D deficiencyStart: 15-83-1001gtuevjimyzLXMWRMYSt. Anne Hospital HospitalStart: 04-18-2025 End: 21-10-9613jjrcttfmoiIxr Infusion Chair Pieter Harrison [facility] - Medical OncologyComment on above:Osteoporosis, unspecified osteoporosis type, unspecified pathological fracture presence (Primary Dx)Start: 04-13-2025 ambulatoryAdventist Health Tehachapi HospitalStart: 04-09-2025 End: 62-38-9358Zphficlashaun Cao MD Work Phone: noms FNR FMStart: 04-09-2025 End: 33-96-6595Vpxkrz Devan Cao MD Work Phone: noms FNR FMStart: 04-09-2025 End: 65-80-4504Wgttbh outpatient visit 25 minutesBia Cao MD Work Phone: noms FNR FMComment on above:Intractable migraine with aura without status migrainosus (CMS/HCC) (Primary Dx); Fall, subsequent encounter; Essential hypertension (CMS/HCC)Start: 04-09-2025 End: 35-75-4506adtxlrjfkoORJX F BOWERNot AvailableStart: 03-22-2025 End: 92-60-4790YofvhiLcst F Bower MD Work Phone: noms FNR FMComment on above:Moderate persistent asthma, unspecified whether complicated (CMS/HCC)Start: 03-21-2025 End: 45-93-5295wgajwumhhtGob Infusion Chair 1[facility] - Medical OncologyComment on above:Osteoporosis, unspecified osteoporosis type, unspecified pathological fracture presence (Primary Dx)Start: 03-19-2025 End: 60-73-4567ciuzkotycgPBZEQCS GUNBOOdessa Regional Medical Center HospitalStart: 02-27-2025 End: 54-95-5374Udyxpe outpatient visit 15 minutesRandall WILKINSON Work Phone: [facility] Genito-Urinary SurgeonsComment on above:Urge incontinence (Primary Dx); Frequent UTIStart: 02-27-2025 End: 63-45-3104uqloanfyucZWKBZIWI I MURPHYKettering Health Washington Township HospitalStart: 02-19-2025 End: 55-58-1464BecdrmNba MAS Work Phone: [facility], A Department of ProMedicBellevue HospitalComment on above:Migraine without aura and without status migrainosus, not intractable (Primary Dx); Essential tremor; Cervical radiculopathy; Bilateral occipital neuralgiaEssential hypertension (CMS/HCC) (Primary Dx)Start: 02-16-2025 End: 11-26-7778mvjtpybdkeSfv Infusion Chair 1DyoandyWetzel County Hospital - Medical OncologyComment on above:Osteoporosis, unspecified osteoporosis type, unspecified pathological fracture presence (Primary Dx)Start: 02-14-2025 End: 27-41-6418zscibosbjvYOGPZWR GUNSauk Prairie Memorial Hospital HospitalStart: 02-13-2025 End: 83-19-4677pwxjdchmhsRNRX F BOWERNot AvailableStart: 02-12-2025 End: 87-89-2716Joxdxbgxi encounterBia Cao MD Work Phone: NOMS FNR FMStart: 02-12-2025 End: 91-86-5495dgpoiikomlBPKC HUNTERSalem Regional Medical Centertart: 02-12-2025 End: 50-60-8650Udbsvt outpatient visit 15 minutesYoanna Dorsey APRN-WIRE MILL OPERATOR Work Phone: [facility], A Department of [facility] CenterComment on above:Migraine without aura and without status migrainosus, not intractable (Primary Dx); Essential tremor; Psychophysiological insomniaStart: 02-09-2025 End: 29-38-0990Hysookjbb encounterBlanche SheltonBeaumont Hospital - Medical OncologyStart: 02-08-2025 End: 76-45-3329Xczkxp Burak Zambrano NProMedica Adult Endocrinology, A Department of [facility] CenterComment on above:Osteoporosis, unspecified osteoporosis type, unspecified pathological fracture presence (Primary Dx)Start: 02-06-2025 End: 84-45-7472ukcdddlfvlFLEO F BOWERNot AvailableStart: 01-31-2025 End: 95-67-1107IagnysKufc F Bower MD Work Phone: [facility] FNR FMComment on above:Stress incontinence of urineStart: 01-23-2025 End: 62-96-8605juemrtwfnwZELS F BOWERNot AvailableStart: 01-23-2025 End: 22-73-5493Mkgsyx outpatient visit 15 minutesBia Cao MD Work Phone: [facility] FNR FMComment on above:Acute bronchitis, unspecified organism (Primary Dx); Flank painStart: 01-23-2025 End: 96-22-8043Kciacl Devan Cao MD Work Phone: NOCE FNR FMStart: 01-23-2025 End: 48-67-4996Gwuomp Devan Cao MD Work Phone: NOBV FNR FMStart: 60-30-1464pgddtflawdLNAZ F BOWER [facility] HospitalStart: 01-15-2025 End: 45-27-8712Hwpvau outpatient visit 15 minutesBia Cao MD Work Phone: noms FNR FMComment on above:Influenza A (Primary Dx); Sore throat; Acute coughStart: 01-15-2025 End: 74-23-0508widliriiceDWIJ F BOWERNot AvailableStart: 01-15-2025 End: 01-69-2682Tlphni Devan Cao MD Work Phone: noms FNR FMStart: 01-15-2025 End: 46-03-7567Dkrrll Devan Cao MD Work Phone: noms FNR FMStart: 01-12-2025 End: 68-77-0161hswbkcegmxZpg Infusion Chair 1[facility] - Medical OncologyComment on above:Osteoporosis, unspecified osteoporosis type, unspecified pathological fracture presence (Primary Dx)Start: 01-12-2025 End: 21-00-1323dkudtljkbpKUJJ F BOWERProLicking Memorial Hospitalca [facility]raz[facility] HospitalStart: 01-11-2025 End: 99-98-8253rmkwqmmyhyFrg Infusion Chair 1DyoandyWetzel County Hospital - Medical OncologyStart: 01-09-2025 End: 27-16-4632wlnjqlbajxKPBHWR Cristian Holguin AvailableStart: 01-09-2025 End: 84-22-0685Gclvvc outpatient new 45 minutesHilajaspal Alvarado MD Work Phone: noms CI ENTComment on above:Presbylarynges (Primary Dx); HoarseStart: 01-03-2025 End: 67-18-4499PozlvrXmrt F Bower MD Work Phone: N[facility] FNR FMComment on above:Mixed hyperlipidemia ([facility]); AnxietyStart: 01-01-2025 End: 13-61-8132Huxkypd encounter procedureNoms Fnr Fm NurseNOMS FNR FMComment on above:Hematuria, unspecified typeStart: 01-01-2025 End: 44-40-0573eabiglqbczCRRL BOWERNot AvailableStart: 01-01-2025 End: 72-46-0162Ubhhwhbsk encounterBia Cao MD Work Phone: N[facility] FNR FMComment on above:Acute cystitis with hematuria (Primary Dx)Start: 97-87-1515gbzqedcvohMEKD F [facility] Hospitaltart: 12-26-2024 End: 76-17-9322Awrhmr Devan Cao MD Work Phone: NOMS FNR FMStart: 12-26-2024 End: 53-75-9403Oaoqbp flowsMagaly Cao MD Work Phone: NOJQ FNR FMStart: 12-26-2024 End: 91-93-9380ilizanpewfYEPM F BOWERNot AvailableStart: 12-26-2024 End: 48-21-6101Kaegly outpatient visit 25 minutesBia Cao MD Work Phone: NOLH FNR FMComment on above:Hoarse (Primary Dx); Primary insomnia; Major depressive disorder, single episode, in full remission ([facility]); Fall, subsequent encounter; Gastroesophageal reflux disease without esophagitisStart: 12-25-2024 End: 16-67-1309Tcmscuwjc encounterBia Cao MD Work Phone: NOQA FNR FMStart: 12-23-2024 End: 02-27-0863Hvsmxhvkv department patient visitBIA [facility] Hospitaltart: 12-22-2024 End: 44-21-7758Xllpdm Med Johnson MD Work Phone: [facility] Adult Endocrinology, A Department of [facility] CenterComment on above:Osteoporosis, unspecified osteoporosis type, unspecified pathological fracture presence (Primary Dx)Start: 12-19-2024 End: 80-22-5358Lknvdj outpatient visit 15 minutesMaria C Kramer MD Work Phone: [facility] Genito-Urinary SurgeonsComment on above:Urge incontinence (Primary Dx)Start: 12-19-2024 End: 06-04-1932tlxezpelouWOFQCHL G SCHUSTERTrumbull Regional Medical Center [facility] Start: 12-18-2024 End: 96-21-1483qfvpjxyfddRzydepv Vytsb Giedbelkis GARCIAFacility:[facility] Start: 12-12-2024 End: 04-32-5351QfggoyNeue F Bower MD Work Phone: NOSL FNR FMComment on above:Gastroesophageal reflux disease without esophagitisStart: 12-11-2024 End: 97-26-2219Crvbkd OnlyBia Cao MD Work Phone: NOM[facility] FNR FMComment on above:Acute cystitis without hematuria (Primary Dx)Start: 12-08-2024 End: 85-38-3966Vrmjyb Devan Cao MD Work Phone: NOM[facility] FNR FMStart: 12-08-2024 End: 38-09-1291Mrppvx Devan Cao MD Work Phone: NOM[facility] FNR FMStart: 12-08-2024 End: 20-14-5967mpqmyrdkczDDXV F BOWERNot AvailableStart: 12-08-2024 End: 38-56-0868Iqmwkf outpatient visit 25 minutesBia Cao MD Work Phone: N[facility] FNR FMComment on above:Urinary frequency (Primary Dx); Essential hypertension (CMS/HCC); Age-related osteoporosis without current pathological fracture (CMS/HCC)Start: 12-06-2024 End: 61-66-8517Lxpbmj outpatient visit 25 minutesJohn Johnson MD Work Phone: [facility], A Department of [facility] CenterComment on above:Hypothyroidism, unspecified type (Primary Dx); Age-related osteoporosis without current pathological fracture; Vitamin D deficiencyStart: 12-06-2024 End: 41-11-2450Lesjei Burak Zambrano NPLane Regional Medical Center Adult Endocrinology, A Department of [facility] CenterComment on above:Osteoporosis, unspecified osteoporosis type, unspecified pathological fracture presence (Primary Dx)Start: 11-29-2024 End: 97-97-4559RxdqbfFlpr F Bower MD Work Phone: noms FNR FMComment on above:Anemia, unspecified type (Primary Dx)Start: 11-28-2024 End: 15-01-8895bhjmpeowfhONQWGCL GIEDRAITIS [facility] Hospitaltart: 11-20-2024 End: 13-37-5623ivouflspuaHltxrev Vytautas Jade GARCIAFacility:[facility] [place] Start: 11-06-2024 End: 07-34-5101EzzgtwJkcs F Bower MD Work Phone: noms FNR FMComment on above:Hyperlipidemia, unspecified hyperlipidemia type (CMS/HCC)Start: 10-30-2024 End: 12-14-5561Tsyivf flowsheetSteven A Rusher DPM Work Phone: noms PODIATRYStart: 10-30-2024 End: 09-32-0520Ndnnnb flowsheetSteven A Rusher DPM Work Phone: noms PODIATRYStart: 10-30-2024 End: 81-93-4551Wnyplxc encounter procedureSteven A Rusher DPM Work Phone: noms PODIATRYComment on above:Dermatophytosis of nail (Primary Dx); Dystrophic nail; Pain around toenail, right foot; Pain around toenail, left footStart: 10-30-2024 End: 57-76-5467frxrzoknppZGIXKF A RUSHERNot AvailableStart: 10-04-2024 End: 21-61-4723Desnsxipd encounterTara Eddie CORREIA.WIRE MILL OPERATOR Work Phone: [facility] Brain Tumor CenterComment on above:Patient QuestionStart: 09-26-2024 End: 96-81-3534xqydofgrncDXWS MILLERFacility:[facility] Generaltart: 09-26-2024 End: 07-09-7847Xrowkyh encounter procedureTara Eddie SANTOSN.WIRE MILL OPERATOR Work Phone: NeurosurgeryComment on above:Benign neoplasm of meninges (HCC) (Primary Dx); DizzinessStart: 09-26-2024 End: 44-08-1388gyxrdmarrjVJUWZ F RECINOSFacility:[facility] Generaltart: 09-26-2024 End: 12-54-6646Akvjckosdf hospital visit by physicianMri [facility] (Lg Bore/1.5t)Radiology MRIComment on above: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]Start: 08-29-2024 End: 74-20-8380ubfpeaygdtILOSZSDHoly [facility] Medical Center [facility] Start: 08-14-2024 End: 45-58-8631Lvkqeo outpatient visit 15 minutesBia Cao MD Work Phone: N[facility] FNR FMComment on above:Acute bronchitis, unspecified organism (Primary Dx); Seasonal allergic rhinitis due to pollenStart: 08-14-2024 End: 32-94-1350pxtylhjvmsKHYW F BOWERNot AvailableStart: 08-14-2024 End: 49-91-5094Hcskmk Devan Cao MD Work Phone: NOMS FNR FMStart: 08-14-2024 End: 51-67-3709Ntsnql Devan Cao MD Work Phone: NOMS FNR FMStart: 08-08-2024 End: 88-98-6595Tjgqpz Devan Cao MD Work Phone: NOMS FNR FMStart: 08-08-2024 End: 91-08-4111Othvbm Devan Cao MD Work Phone: NOMS FNR FMStart: 08-08-2024 End: 85-97-7372Wutyjk outpatient visit 25 minutesBia Cao MD Work Phone: NOMS FNR FMComment on above:Hoarse (Primary Dx); Purulent postnasal drainage; Primary insomnia; Gastroesophageal reflux disease without esophagitisStart: 08-08-2024 End: 96-07-8676dunbttnjytLHBE F BOWERNot AvailableStart: 07-14-2024 End: 98-19-9495Wozmru Jl Cao MD Work Phone: NOMS FNR FMComment on above:Acute cystitis without hematuria (Primary Dx)Start: 07-13-2024 End: 67-25-1350jrdbujawnbXGKKMadison State Hospital Ambulatory PPGStart: 07-11-2024 End: 85-11-9550Emhwzy Jl Cao MD Work Phone: [facility] FNR FMComment on above:Acute cystitis without hematuria (Primary Dx)Start: 07-10-2024 End: 12-04-1503Ffblov outpatient visit 25 minutesBia Cao MD Work Phone: [facility] FNR FMComment on above:Urinary frequency (Primary Dx); Dysuria; Chronic idiopathic constipation; Chronic right-sided thoracic back painStart: 07-10-2024 End: 89-21-0417Apnefs Devan Cao MD Work Phone: [facility] FNR FMStart: 07-10-2024 End: 92-79-9504Srkvfg Devan Cao MD Work Phone: [facility] FNR FMStart: 58-82-2887Excywy Rob Hoover MD Work Phone: [facility] Tumor CenterComment on above: Intracranial meningioma (HCC) (Primary Dx); Benign neoplasm of meninges (HCC)Start: 04-04-2024 End: 84-34-9255yexjrtaybdPAGGO F RECINOSFacility:[place] [facility]: 04-04-2024 End: 16-60-3475Pbxlgyn encounter procedureMandi Hoover MD Work Phone: [facility] Brain Tumor CenterComment on above: Intracranial meningioma (HCC) (Primary Dx); Sensorineural hearing loss (SNHL) of right ear, unspecified hearing status on contralateral side; DizzinessStart: 34-84-5222Bvmcqtltx encounterNeurology ProviderNeurologyComment on above:Received Outside Medical Records (External referral to [facility] [place]/); triage; Nurse Triage Call; AppointmentStart: 01-06-2024 End: 49-75-7841eciibczcffXczlxowt Wright SOCIAL MEDIA DEVELOPER Work Phone: [facility] FB PTComment on above:General weakness (Primary Dx); History of fallingStart: 70-76-8854Naquti [employer] Language SOCIAL MEDIA DEVELOPER Work Phone: [facility] FB PTStart: 49-88-7540Yrwzym [employer] SOCIAL MEDIA DEVELOPER Work Phone: [facility] FB PTStart: 01-04-2024 End: 55-34-7900wwndpacysqCffpggts Wright SOCIAL MEDIA DEVELOPER Work Phone: [facility] FB PTComment on above:General weakness (Primary Dx); History of fallingStart: 70-91-2516BowjkdWqaz F Bower MD Work Phone: [facility] FNR FMComment on above:Mixed hyperlipidemia (CMS/HCC) (Primary Dx); Stress incontinence of urineStart: 25-93-3302Leagr Flores Salazar PT Work Phone: [facility] FB PTStart: 12-23-2023 End: 15-87-9081lziqfzjnouAwuuceuz Wright SOCIAL MEDIA DEVELOPER Work Phone: [facility] FB PTComment on above:General weakness (Primary Dx); History of fallingStart: 10-12-2022 End: 66-97-1602uuamuydswmVUBYCrystal Roman [facility]: 09-28-2022 End: 56-92-6466sbdikcckohPLFI F BOWERMercy [facility] Centertart: 05-16-2018 End: 45-86-5656XpljngyyasZCSTKHM J SOPHIEAnabel [facility]: 05-06-2018 End: 33-16-7165ZwdnjllhsrIUUU Shirley [facility]: 05-02-2018 Patient encounter statusJohn Johnson MD Work Phone: [phone] [place] [address] Work Phone: Procedures DateProcedureProcedure DetailPerforming ClinicianStart: 98-46-6857Hfgocq-up visitFollow-upMICRAOUL JAUREGUIStart: 39-30-2411Kugwt dip stick/tablet rgnt auto w/o microscopyMichelmarco WILKINSON Work Phone: Start: 19-95-6448Hswyp depression screening assessment Yoanna Willian SANTOSN-WIRE MILL OPERATOR Work Phone: Start: 25-48-0495Keouo dip stick/tablet rgnt non-auto w/o micrscpMary Anny Cao MD Work Phone: Start: 03-34-0717LMQQOP COVID-19/FLUBia Cao MD Work Phone: Start: 56-91-6382Hfgyc dip stick/tablet rgnt non-auto w/o micrscpBreann Majors EVENT SET UP SPECIALIST Work Phone: Start: 66-93-0609Nyuwhyg bacterial quanttative colony count urineBia Cao MD Work Phone: Start: 18-11-4869AIEKShwm F Bower MD Work Phone: Start: 12-08-2024 End: 70-11-1305Xzkyx dip stick/tablet rgnt non-auto w/o micrscpMary Anny Cao MD Work Phone: Start: 06-87-2907Syckqr-up visitFollow-upJOHN JOHNSONStart: 73-08-3303Bsq brain brain stem w/o w/contrast materialPablo Anny Hoover MD Work Phone: start: 69-97-5244DCFZWA COVID-19/FLUMary Anny Cao MD Work Phone: Start: 23-84-2737Khyyv depression screening assessment John Johnson MD Work Phone: start: 60-82-0186Pnpvz dip stick/tablet rgnt non-auto w/o micrscpMary Anny Cao MD Work Phone: Start: 42-27-2886YWNXTKEDH PATIENTMARK H[facility] COUNTY HOSPITALEStart: 11-77-8677ILYEVCMCMRK [facility]OSPITALEStart: 77-95-0663Whlhayvtwp pulse oximetryMARK [facility] HOSPITALEStart: 50-49-7309XTSSDDDVD DEEP BREATHING AND COUGHINGMARK [facility] COUNTY HOSPITALEStart: 29-99-4355TOMZVH PHYSICIAN (SPECIFY)LENNY [facility]OSPITALEStart: 72-46-7240ALXYPPG COMMUNICATIONMARK [facility] COUNTY HOSPITALEStart: 45-11-2207KERNABAV OXYGEN THERAPY PROTOCOLMARK [facility] HOSPITALEStart: 41-28-7674QCVVUK PERIPHERAL IVMARK [facility]OSPITALEStart: 15-82-0538TBINX SIGNSMARK [facility] HOSPITALEStart: 63-30-5922Ojmdw metabolic panel calcium totalMARK [facility] HOSPITALEStart: 22-06-5738Glpjd count complete auto&auto difrntl wbcMARK [facility]ITALZLE Plan of Treatment DateCare ActivityDetailAuthorStart: 17-04-0477Ozxofkmp ScreeningDiabetes ScreeningFisher-Titus Medical Centertart: 05-28-7291Ukbycxg ScreeningTobacco Screening [facility] SystemStart: 89-99-2650Vmaezhy ScreeningTobacco Screening [facility] SystemStart: 43-19-8161Revfrgo ScreeningTobacco Screening [facility] SystemStart: 90-27-1484Rxblega ScreeningTobacco Screening [facility] SystemStart: 02-26-2026 End: 21-74-2045Epuojbo encounter qoskpywxz54/07/2026 1:00 PM EDT Office Visit [facility] [address] [place] [address] [place] [address] Maria C Kramer MD [address] [place] [address] [facility] SurgeonsStart: 52-86-5522Bdurwym ScreeningTobacco ScreeningProMedica Health SystemStart: 35-21-1300Aysznkrjxk ScreeningDepression ScreeningProMedica Health SystemStart: 54-29-5491Yxag Risk ScreeningFall Risk ScreeningProLicking Memorial Hospitalca Health SystemStart: 89-54-4539Zfxccyo ScreeningTobacco ScreeningProMedica Health SystemStart: 01-14-2026 End: 32-02-2710DI Abdomen APX-ray abdomen ap 1 view Imaging Routine Kidney stones Expected: 01/14/2026, Expires: 06/13/2026[facility] Work Phone: Comment on above:Expected: 01/14/2026, Expires: 06/13/2026Start: 78-25-3057Sqclkwc ScreeningTobacco ScreeningProMedica Health SystemStart: 01-32-0182Znupkds ScreeningTobacco ScreeningProMedica Health System Start: 44-60-8287Ztothui ScreeningTobacco ScreeningProMedica Health SystemStart: 11-07-2025 End: 03-70-7225Mtimnle encounter dfpyrlhrr71/17/2025 1:40 PM EST Office Visit [facility] Medicine [address] [place] [phone] Bia Cao MD [address] [place] [address] [facility] 09-21-2025 End: 93-08-1364fiugrpblci30/31/2025 1:00 PM EDT Infusion [facility] [place] [facility] - Medical Oncology [address] [place] [address] [facility] [place] [facility] - Medical OncologyStart: 08-17-2025 End: 72-44-9998ghsugmpcln54/26/2025 1:00 PM EDT Infusion [facility] [place] [facility] [address] [place] [address] [facility] [place] [facility] Medical OncologyStart: 08-16-2025 End: 97-85-3704Uzomcgq encounter procedureProAthens-Limestone Hospital [facility]rology, A Department of [facility]ertart: 66-77-9006SYPSO-19 Vaccine ( season) COVID-19 Vaccine ()[facility] SystemStart: 07-23-2025 Influenza vaccinationAultman Hospital SystemStart: 90-41-5226Gqrpoydeda ScreeningDepression ScreeningProEast Liverpool City Hospitaltart: 07-11-2025 End: 25-35-4031oqxgiysgdd94/20/2025 12:00 PM EDT Infusion [facility] [place] [facility] [address] [place] [address] [facility] [place] [facility] OncologyStart: 07-10-2025 End: 959543-vfgcrsnzagtzrf D3 [Mass/volume] in Serum or PlasmaVitamin D 25 hydroxy Lab Routine Age-related osteoporosis without current pathological fracture Expected: 07/10/2025 (Approximate), Expires: 07/10/2026[facility] Comment on above:Expected: 07/10/2025 (Approximate), Expires: 07/10/2026Start: 07-10-2025 End: 97-16-6471LGI W Auto Differential panel - BloodCBC and differential Lab Routine Stage 3b chronic kidney disease (CKD) ([facility]-HCC) Major depressive di sorder, single episode, in full remission Expected: 07/10/2025 (Approximate), Expires: 07/10/2026[facility] Work Phone: Comment on above:Expected: 07/10/2025 (Approximate), Expires: 07/10/2026Start: 07-10-2025 End: 37-84-8281Tflsqdbgjsfpm metabolic 2000 panel - Serum or PlasmaComprehensive metabolic panel Lab Routine Stage 3b chronic kidney disease (CKD) ([facility]-HCC) Expected:07/10/2025, Expires: 07/10/2026[facility] HealthcareComment on above: Expected: 07/10/2025, Expires: 07/10/2026Start: 07-10-2025 End: 49-00-5825Kzvsqxc encounter procedureNOMS FNR FMComment on above:Arrived Start: 06-13-2025 End: 01-73-4823Antgrki encounter esyrfnzlf22/23/2025 2:00 PM EDT Office Visit [facility] [address] [place] [address] [facility] [place] [address] Randall Jauregui PA [address] [place] [address] [facility] SurgeonsStart: 06-13-2025 End: 78-81-1368mppvrcnmjs76/23/2025 12:30 PM EDT Infusion Meggan L [facility] - Medical Oncology [address] [place] [phone] Meggan L [place] [facility] - Medical OncologyStart: 89-05-7784Sorjjwhbz vaccinationInfluenza Vaccine (#1)[facility] HealthcareComment on above:Postponed from 07/23/2024 (Other Medical Reasons)Start: 05-16-2025 End: 93-71-8116jpparuurki66/25/2025 10:30 AM EDT Infusion Meggan L [place] [facility] - Medical Oncology [address] [place] [phone] [facility] - Medical OncologyStart: 78-37-4687AQLBY-19 Vaccine ( season)COVID-19 Vaccine ( season)[facility] [employer] SystemStart: 04-18-2025 End: 46-41-8283UFE Skeletal system Views for bone densityDexa scan central skeletal Imaging Routine Osteoporosis, unspecified osteoporosis type, unspecifiedpathological fracture presence Expected: 04/18/2025, Expires: 04/18/2026[facility] Work Phone: comment on above:Expected: 04/18/2025, Expires: 04/18/2026Start: 04-18-2025 End: 40-73-4404Czbsjfb encounter hxnxohcru60/28/2025 1:30 PM EDT Office Visit [facility], [facility] [address] [place] [phone] John Johnson MD [address] [place] [address] [facility] Adult Endocrinology, A Department [facility] HospitalStart: 04-18-2025 End: 41-54-7851ferwoystqg07/28/2025 10:30 AM EDT Infusion Meggan [place] [facility] - Medical Oncology [address] [place] [phone] Meggan [place] [facility] - Medical OncologyStart: 04-09-2025 End: 34-61-7716Estuxqz encounter procedureNOMS FNR FMComment on above:Arrived Start: 04-09-2025 End: 74-38-1400ipuriiieii99/19/2025 1:00 PM EDT Infusion Meggan [place] [facility] - Medical Oncology [address] [place] [phone] Meggan [place] [facility] - Medical OncologyStart: 04-06-2025 End: 15-17-3364Hvxjlha encounter cixcksuhn86/16/2025 10:30 AM EDT Office Visit [facility] [address] [place] [address] [place] [address] Corey Corbett DO [address] [facility], [address], [address] [place], [place] [phone] [facility] MedicineStart: 03-12-2025 End: 82-56-5045xucomstjxs37/21/2025 1:30 PM EDT Infusion Meggan [place] [facility] - [facility] Oncology [address] [place] [address] [facility] [place] [facility] Medical OncologyStart: 79-59-1602Hayu Risk ScreeningFall Risk ScreeningAtrium Health Huntersvilletart: 03-09-2025 End: 76-73-0476lianrzoizv32/18/2025 1:00 PM EDT Infusion [facility] [place] [facility] [address] [place] [phone] [facility] [place] [facility] Medical OncologyStart: 02-27-2025 End: 76-30-6330Ecbjdpu encounter yijporhoc31/08/2025 2:30 PM EDT Office Visit [facility] [address] [place] [phone] Randall Jauregui PA [address] [place] [address] [facility] SurgeonsStart: 02-16-2025 End: 89-67-1926fzhvrjbopa99/28/2025 1:00 PM EDT Infusion [facility] [place] [facility] [address] [place] [phone] [facility] [place] [facility] Medical OncologyStart: 02-13-2025 End: 20-25-8603Mbqdmrldzqrv / ancillary services foyqavjziw38/25/2025 2:00 PM EDT Ancillary Procedure [facility] [address] [address] MYRX FNR CTStart: 02-12-2025 End: 12-84-5826Urbsalg encounter procedureProMedica Neurology, A Department of [facility]ertart: 02-09-2025 End: 30-11-2437qgpezoloxe94/21/2025 2:00 PM EDT Infusion [facility] [place] [facility] [address] [place] [address] Meggan [place] [facility] - Medical OncologyStart: 02-08-2025 End: 39-75-7330qwxhfmrhfg36/20/2025 2:00 PM EDT Infusion Meggan [place] [facility] - Medical Oncology [address] [place] [address] Meggan [place] [facility] - Medical OncologyStart: 02-06-2025 End: 75-71-8001Mrsnjfy encounter titbpflqz48/18/2025 9:20 AM EDT Office Visit [facility] [address] [place] [phone] Bia Cao MD [address] [place] [address] [facility] FNR FMStart: 01-23-2025 End: 64-39-0804Qzevgkvf identified in Urine by CultureUrine culture (clean catch) Microbiology Routine Flank pain Expected: 01/23/2025 (Approximate), Expi res: 01/23/2026NOOK HealthcareComment on above:Expected: 01/23/2025 (Approximate), Expires: 01/23/2026Start: 01-23-2025 End: 39-23-5029Ivzqtcbnkm complete panel - UrineUrinalysis with reflex microscopic (clean catch) Lab Routine Flank pain Expected: 01/23/2025 (Approx imate), Expires: 01/23/2026[facility] Work Phone: Comment on above:Expected: 01/23/2025 (Approximate), Expires: 01/23/2026Start: 01-18-2025 End: 76-07-6187Vbtaivg encounter tlvdpanqi38/27/2025 11:00 AM EST Office Visit [facility] [address] [place] [address] [place] [address] Yoanna Dorsey APRN-WIRE MILL OPERATOR [address] [place] [address] [place] [address] [facility] Adult NeurologyStart: 01-17-2025 End: 48-67-6148Xouisnj encounter procedureProMedica Physicians Genito-Urinary SurgeonsStart: 01-15-2025 End: 30-65-0196Nvwfdnu encounter vbaixfaet13/24/2025 2:20 PM EST Office Visit [facility] [address] [place] [phone] Bia Cao MD [address] [place], [place] [phone] ArrivedNOMS FNR FMComment on above:ArrivedStart: 01-12-2025 End: 92-52-5876fgnbvicxzz28/21/2025 2:20 PM EST Infusion Meggan L [facility] - Medical Oncology [address] [place] [phone] [facility] - Medical OncologyStart: 01-09-2025 End: 99-65-4610Grqjkmh encounter rvtlrsmel22/18/2025 1:40 PM EST Office Visit [facility] [address] [facility] [address] [place] [phone] Katerin Alvarado MD [address] [facility] [address] [place] [address] [facility] CI ENTStart: 01-01-2025 End: 90-32-0826Jlclmpmj identified in Urine by CultureUrine culture (clean catch) Microbiology Routine Hematuria, unspecified type Expected: 01/01/2025 (A pproximate), Expires: 01/01/2026[facility] Work Phone: Comment on above:Expected: 01/01/2025 (Approximate), Expires: 01/01/2026Start: 01-01-2025 End: 89-42-7652Mmrgnpc encounter edniwtayz27/10/2025 1:30 PM EST Office Visit [facility] [address] [place] [phone] [facility] FNR FMStart: 12-26-2024 End: 10-27-9878Okcsgeq encounter hwytdpdry59/04/2025 9:20 AM EST Office Visit [facility] [address] [place] [phone] Bia Cao MD [address] [place], [place] [address] [facility] FNR FMStart: 12-19-2024 End: 46-61-8805Jqihnnn encounter xshlbywty78/28/2025 12:45 PM EST Office Visit [facility] [address] [place] [address] [place] [phone] Maria C Kramer MD [facility] [place] [address] [facility]Ur[facility] SurgeonsStart: 12-08-2024 End: 98-58-9915Esqdjgu encounter cosuenxph96/17/2025 11:40 AM EST Office Visit [facility] [address] [place] [phone] Bai Cao MD [address] [place], [place] [phone] [facility] FNR FMStart: 01-15-2025Medicare Annual Wellness (AWV)Medicare Annual Wellness (AWV)[facility] HealthcareStart: 10-30-2024 End: 26-64-1258Dhvphbf encounter /09/2024 1:45 PM EST Office Visit [facility] [address] [place] [phone] Santo Christianson, DPAdali [address] [place], [place] [phone] ArrivedNOMS PODIATRYComment on above:ArrivedStart: 08-28-2024 End: 01-36-1235FZ Brain WO and W contrast IVMRI BRAIN WO/W IVCON Radiology Routine Benign neoplasm of meninges (HCC) Expected: 08/28/2024 (Approximate), Expires: 06/08/2025[facility] Work Phone: comment on above:Expected: 08/28/2024 (Approximate), Expires: 06/08/2025Start: 08-14-2024 End: 09-04-5836Bdlgnxs encounter trinztsrn77/23/2024 4:00 PM EDT Office Visit [facility] [address] [facility] [place] [address] [phone], Mary F, MD [address] [facility] [place] [address] ArrivedNOMS FNR FMComment on above:ArrivedStart: 08-08-2024 End: 36-99-4322Xlwvcli encounter xsuasqcbx09/17/2024 11:40 AM EDT Office Visit [facility] [address] [facility] [place] [phone] Bia Cao MD [address] [facility] [place] [address] ArrivedNOMS FNR FMComment on above:ArrivedStart: 08-04-2024 End: 81-96-4845Jwiuxdz encounter gxzjqjoro13/13/2024 11:00 AM EDT Office Visit [facility] [address] [facility] [place] [phone] Bia Cao MD [address] [facility] [place] [address] [facility] FNR FMStart: 86-12-5309Kbbzn-19 Vaccine ( season)Covid-19 Vaccine ( season)[facility]ertart: 72-85-0841Haplvzrom vaccinationFisher-Titus Medical Centertart: 07-10-2024 End: 89-76-2437Aqjmemr encounter eywhqcylo17/19/2024 3:40 PM EDT Office Visit [facility] [address] [facility] [place] [phone] Bia Cao MD [address] [place], [place] [phone] ArrivedNOMS FNR FMComment on above:ArrivedStart: 07-10-2024 End: 45-76-3148Cwjxnfmy identified in Urine by CultureUrine culture (clean catch) Microbiology Routine Dysuria Expected: 07/10/2024 (Approximate), Expires: 07/10/2025[facility] Work Phone: Comment on above:Expected: 07/10/2024 (Approximate), Expires: 07/10/2025Start: 07-10-2024 End: 74-77-7224Txvvipfzjp complete panel - UrineUrinalysis with reflex microscopic (clean catch) Lab Routine Dysuria Expected: 07/10/2024 (Approxima te), Expires: 07/10/2025NOMS HealthcareComment on above:Expected: 07/10/2024 (Approximate), Expires: 07/10/2025Start: 25-43-5574Zxqmazzms vaccination Influenza Vaccine (#1)[facility]S HealthcareComment on above:Postponed from 07/23/2023 (Patient Refused)Start: 04-04-2024 End: 15-33-7297Eiesadx encounter jmftxcyhz87/14/2024 10:30 AM EDT Office Visit [facility] [address] [place] [address] Mandi Hoover MD [address] [place] [address] Time Frame: First availableAstra Health Center Comment on above:Time Frame: First availableStart: 04-03-2024 End: 91-08-8695Bxngwen encounter smpurhsnk80/13/2024 11:20 AM EDT Office Visit [facility] [address] [place] [phone] Bia Cao MD [address] [place], [place] [phone] [facility] FNR FMStart: 01-20-2024 End: 82-02-0925dkkiouujwr25/29/2024 11:00 AM EST Treatment [facility] [address] [place] [phone] Jonny Salazar, PT [address] [place] [address] [facility] FB PTStart: 01-18-2024 End: 90-45-6622qzpejehuny53/27/2024 11:30 AM EST Treatment [facility] [address] [place] [address] Ria Snyder, SOCIAL MEDIA DEVELOPER [address] [place] [address] [facility] FB PTStart: 01-14-2024 End: 73-21-1156avckexjbjy79/23/2024 1:00 PM EST Treatment [facility] [address] [place] [phone] Ria Snyder, SOCIAL MEDIA DEVELOPER [address] [place] [address] [facility] FB PTStart: 01-12-2024 End: 92-10-4078ioyqzauxea02/21/2024 12:30 PM EST Treatment [facility] [address] [place] [phone] Ria Snyder, SOCIAL MEDIA DEVELOPER [address] [place] [address] [facility] FB PTStart: 01-06-2024 End: 42-27-4503tukydtqackFXLM FB PTStart: 01-04-2024 End: 12-96-8165dpfzvfcgvh28/13/2024 11:30 AM EST Treatment [facility] [address] [place] [phone] Ria Snyder, SOCIAL MEDIA DEVELOPER [address] [place] [address] [facility] FB PTStart: 12-31-2023 End: 22-37-1803wegasbmwep44/09/2024 10:00 AM EST Treatment [facility] [address] [place] [phone] Ria Snyder, SOCIAL MEDIA DEVELOPER [address] [place] [address] [facility] FB PTStart: 12-30-2023 End: 30-64-5669ujdeyigvqx09/08/2024 11:30 AM EST Treatment [facility] [address] [place] [phone] Jonny Salazar, PT [address] [place] [address] [facility] FB PTStart: 12-28-2023 End: 91-74-8277dkugxkzadd64/06/2024 11:30 AM EST Treatment [facility] [address] [place] [phone] Ria Snyder, SOCIAL MEDIA DEVELOPER [address] [place] [address] [facility] PTStart: 86-37-4962Kbzgxlt Directive DiscussionAdvance Directive DiscussionFisher-Titus Medical Centertart: 48-52-5850Xsylawquli Health ScreeningBehavioral Health Screening [facility] Centertart: 64-82-7325Aapju-19 Vaccine ( season)Covid-19 Vaccine ( season)[facility] Centertart: 27-64-1577ZWpB,Tdap and Td Vaccines (2 - Td or Tdap)DTaP,Tdap and Td Vaccines (2 - Td or Tdap)[facility] SystemStart: 92-23-8225KIS Vaccine (1 - 1-dose 75+ series)RSV Vaccine (1 - 1-dose 75+ series)[facility] Centertart: 46-15-1925Gfczi microalbumin profile DTaP,Tdap,Td Vaccine (1 - Tdap)[facility] Centertart: 41-96-8572Suvfamhhvzqgwk of varicella zoster vaccineZoster (Shingles) Vaccine (2 of 3)[facility] SystemStart: 30-33-3567DLL Vaccine (1 - 1-dose 60+ series)RSV Vaccine (1 - 1- dose 60+ series)[facility] Centertart: 93-05-8590Ewukogkq Vaccine (1 of 2) Shingrix Vaccine (1 of 2)[facility] Centertart: 19-23-1902Nuicowv Screening Anxiety ScreeningFisher-Titus Medical Centertart: 42-11-2108Gibxrpbytm ScreeningDepression ScreeningFisher-Titus Medical Centertart: 30-76-9326Bchjywjkz C screeningHepatitis C ScreeningAkron Children'S HospitalBacteria identified in Urine by CultureUrine culture (clean catch) Microbiology Routine Urinary frequency 12/08/2024 12:28 PM [facility] Work Phone: End: 44-32-9664Vksakeh [Mass/volume] in Serum or PlasmaCalcium Lab Routine Osteoporosis, unspecified osteoporosis type, unspecified pathological fracture p resence every 3 months for 4 Occurrences starting 12/22/2024 until 12/22/2025 [facility] Work Phone: comment on above:every 3 months for 4 Occurrences starting 12/22/2024 until 12/22/2025 End: 17-90-1829Ilhdcdv [Mass/volume] in Serum or PlasmaCalcium Lab Routine Osteoporosis, unspecified osteoporosis type, unspecified pathological fracture p resence MONTHLY for 12 Occurrences starting 02/08/2025 until 02/08/2026[facility] Work Phone: comment on above:MONTHLY for 12 Occurrences starting 02/08/2025 until 02/08/2026 End: 94-23-2934QF Brain WO and W contrast IVMRI BRAIN WO/W IVCON Radiology Routine Benign neoplasm of meninges (HCC) 1 Occurrences starting 09/26/2024 until 10/26/2025[facility] Work Phone: Comment on above:1 Occurrences starting 09/26/2024 until 10/26/2025 Immunizations Immunization DateImmunizationNotesCare PoqbuumaJoooixwp62-13-3483RED, recombinant, protein subunit RSVpreF, adjuvant reconstitu, 120mcg/0.5mL, PF (Arexvy)Santo Christianson DPM Work Phone: [facility] CenterEbllukijky80-87-5175YODEG-88, mRNA, LNP-S, PF, 100mcg/0.5mL DoseJohn Johnson MD Work Phone: [phone] [place], [place] [address]604-20-2021Moderna SARS-CoV-2 VaccinationGretchen Snyder SOCIAL MEDIA DEVELOPER Work Phone: [facility] CenterXhuoiljlkz37-48-2427CKLJB-10, mRNA, LNP-S, PF, 100mcg/0.5mL DoseJohn Johnson MD Work Phone: [phone] [place], [place] 56[address]603-23-2021Moderna SARS-CoV-2 VaccinationGretchen Snyder SOCIAL MEDIA DEVELOPER Work Phone: [facility] [id number] conjugate vaccine, 13 valentGretchen Snyder SOCIAL MEDIA DEVELOPER Work Phone: [facility] [id number], high dose seasonal, preservative-freeGretaleyda Snyder SOCIAL MEDIA DEVELOPER Work Phone: [facility] [id number], quadrivalent, recombinant, injectable influenza vaccine, preservative freeJohn Johnson MD Work Phone: [phone] [place], [place] [id number] virus vaccine, unspecified formulationGretchen Snyder SOCIAL MEDIA DEVELOPER Work Phone: [facility] [id number], quadrivalent, recombinant, injectable influenza vaccine, preservative freeLesetchen Nsyder SOCIAL MEDIA DEVELOPER Work Phone: [facility] CenterKeoebruknj18-46-3784ouklcwomd, injectable, quadrivalent, preservative freeGretchen Snyder SOCIAL MEDIA DEVELOPER Work Phone: [facility] CenterPcfjbkbhuh21-32-6155ummfhbngq, seasonal, injectable, preservative freeGretchen Snyder SOCIAL MEDIA DEVELOPER Work Phone: [facility] CenterLgowabbbbx11-48-4846dxwtifmtexaa polysaccharide vaccine, 23 valentRia Snyder SOCIAL MEDIA DEVELOPER Work Phone: [facility] CenterYbzlxbjimn85-87-5602ellbrth and diphtheria toxoids, adsorbed, preservative free, for adult use (5 Lf of tetanus toxoid and 2 Lf of diphtheria toxoid)Ria Snyder SOCIAL MEDIA DEVELOPER Work Phone: [facility] CenterFzjjcgaxhb81-39-7187cuwmya vaccine, liveGrmariam Snyder SOCIAL MEDIA DEVELOPER Work Phone: [facility] CenterQzatzyeprs31-30-3714mkmauz vaccine, unspecified formulationJohn Johnson MD Work Phone: [phone] [place], [place] [address]Nzuktu52-26-4709ouvruvvamest polysaccharide vaccine, 23 Belem Cao MD Work Phone: [facility] Payers DatePayer CategoryPayerPolicy [id number] MEDICARE ADVANTAGE [id number] 2024Medicare [id number] Insurance 2022Medicare HMOAETNA MEDICARE Member Subscriber Plan / Payer (Effective 2021-Present) Name: Angela Ruth Relation to Subscriber: Self Name: Angela Ruth Payer ID: 1 (NAIC) Type: Not on file Address: [facility] [address] [place] [id number] [id number] [id number] 2.16840.1.086126.3.57[id number] 2.160.1.263263.3.57[id number] 2.16840.1.846284.3.57[id number] 2.16840.1.053883.3.57[id number] 2.16840.1.413938.3.57[id number] 2.16840.1.485735.3.57[id number] 2.16840.1.340170.3.57[id number] 2.16840.1.807338.3.57[id number] 2.16840.1.686306.3.57[id number] 2.16840.1.210103.3.579.[id number] 2.16840.1.750557.3.57[id number] 2.16840.1.207759.3.57[id number] 2.840.1.732615.3.579.2.32[id number] 2.840.1.657784.3.579.2.777657-03-8451Wgcivni9931853 2.0.1.219674.3.579.2.116405-26-8694Wnowkkx9632504 2.840.1.941624.3.579.2.838377-61-9490Qdifqpv7786790 2.0.1.271512.3.579.2.375526-92-7736Ihjukyy1545387 2.0.1.720553.3.579.2.821638-32-6637Dtyeelc1383795 2.840.1.514010.3.579.2.946484-63-4316Mxwyarr6671933 2..1.644875.3.579.2.[id number] 2..1.647527.3.579.2.349093-56-5169Bsxlpsk7770634 2..1.714463.3.579.2.497200-49-8278Zudyuyr9943140 2.0.1.566520.3.579.2.209167-57-3958Lohdjbj3713311 2.840.1.373620.3.579.2.79[id number] 2.840.1.817210.3.57[id number] 2.16.840.1.661810.3.579.2.[id number] 2.0.1.011526.3.579.2.620497-59-9572Eywnfxt378055938 2.0.1.201909.3.579.2.[id number] 2.0.1.106853.3.579.2.674461-10-6611Rqultbu814399595 2.0.1.874013.3.579.2.440064-09-7645Biqlsiz351791950 2..1.525298.3.579.2.6[id number] 2..1.380683.3.579.2.559499-99-9637Ctarets759950534 2..1.294575.3.579.2.046903-35-5102Oowwnfo999588551 2..1.856501.3.579.2.235338-65-2216Acdnhmb985077861 2..1.761696.3.579.2.173387-19-2553Dpbsfot767983926 2..1.039439.3.579.2.582305-46-0847Wjqgrqv461936511 2..1.513820.3.579.2.282452-55-7618Uxtohbz252833578 2.0.1.946703.3.579.2.406007-28-2248Hjhqtnb453514238 2.0.1.178414.3.579.2.35[id number] 2.16.840.1.942678.3.579.2.951450-16-5490Tvtlkvc950556519 2.16.840.1.595096.3.579.2.811158-68-2327Fgtpijw464027909 2.16.840.1.132399.3.579.2.667878-88-0777Eylhaey082473704 2.840.1.477882.3.579.2.803898-36-9976Knubkxk123687717 2..840.1.962599.3.579.2.688784-92-7158Vuawamy578964318 2.840.1.914117.3.579.2.254177-85-2338Sttdzrv940513216 2.840.1.246786.3.579.2.378694-58-0256Uzfrmbw974643357 2.840.1.573542.3.579.2.06210-45-9324Cvtqxvj508098965 2.840.1.753856.3.579.2.41301-31-6310Wzynzdq961015376 2.840.1.280357.3.579.2.29874-06-3147Mcdlzbe495545350 2.0.1.840526.3.579.2.07521-07-9777Tgjxgia590705500 2.840.1.377141.3.579.2.18640-70-1591Bibskjo712507175 2.840.1.298260.3.579.2.17202-60-1332Sidcncn409921853 2.840.1.533323.3.579.2.196 Social History DateTypeDetailFacilityStart: 06-04-2023 End: 02-58-0887Zqmwpcl smoking status NHISNever smoked tobaccoNOMS Healthcare Start: 06-04-2023 End: 40-64-6311Pdvousb use and exposureSmokeless tobacco non-userNOMS Healthcare Start: 91-30-4484Qlnufep intakeCurrent drinker of alcohol (finding)[facility] HealthcareStart: 12-03-2020 End: 60-95-8407Kgxbqsu of Social functionNOMS HealthcareStart: 12-03-2020 End: 68-80-1155Nvhwblh use panelNOMS HealthcareStart: 91-67-3519Iycncui Comment caffeine: occasionalNOMS HealthcareStart: 32-76-6649Sjt Assigned At BirthNot on fileALTA VIEW HOSPITAL HealthcareStart: 01-27-2018 End: 13-09-5517Korkant intakeCurrent non-drinker of alcohol (finding)[facility] Score (1-100), lower number is lower riskNot on [facility] Hospitaltart: 07-10-2024 End: 47-99-8525Vvjxefpqq beverage intakeEx-drinker (finding)[facility] HealthcareDo you belong to any clubs or organizations such as worship groups, unions, fraternal or athletic groups, or school groups?YesNOMS HealthcareAre you now , , , , never or living with a partner? WidowedNOMS HealthcareHow often to you have a drink containing alcohol?NeverNOMS HealthcareHow hard is it for you to pay for the very basics like food, housing, medical care, and heatingNot very hardNOMS HealthcareDo you feel stress - tense, restless, nervous, or anxious, or unable to sleep at night because your mind is troubled all the time - these days [OSQ]Rather muchNOMS Healthcare(I/We) worried whether (my/our) food would run out before (I/we) got money to buy more.Never trueNOMS HealthcareStart: 75-62-8669Frjxjpg CommentSecond hand smoke from FatherNOMS HealthcareHistory of tobacco usePassive smokerProMedica Health SystemStart: 81-25-7913Fxi assigned at birthFemalePToledo Hospital SystemStart: 92-45-7369HowKzvlop (finding)[facility] HospitalFieldLens [facility] Hospitaltart: 02-19-6171Uzedyn identityIdentifies as female gender (finding)[facility] HospitalFieldLens [facility] Hospitaltart: 64-28-2033Zraakn orientationHeterosexual (finding)[facility] Medical Equipment Procedure CodeEquipment CodeEquipment Original TextEquipment IdentifierDates Patch Dura 1x1in Drmtrx-[place] + Clgn Rgnrt Membr Strl - [id number] Start: 07-03-2021 Goals DatePatient GoalDesired Activity/StatePersonal health goalPersonal health goal Comment on above: Evaluation of progress towards goal: safe transition from hospital to home with support of her friends/neighbors Clinical Notes 03-24-2024 to 08-17-2025 Note Date & MpraPlrnYxjayiiw26-78-1068 History of Present illness Narrative* Shaye Palmer RN - 08/17/2025 1:00 PM EDT Patient presents for Evenity injection as scheduled. Calcium reviewed with patient, WNDale at 9.4 on 08/16/25; medication indicated Injection administered in Left upper arm SQ tissue without issue and Pt tolerates well Sites covered with band aids. Next injection scheduled at front line supervisor Patient discharged in stable condition to private vehicle in care of her granddaughter. documented in this encounterOhioHealth Arthur G.[facility]09-03-2025 Telephone encounter Note* Telephone Encounter - Bia Cao MD - 07/25/2025 9:59 AM EDT Approvals with refills [facility] CenterDzryrlfoun41-11-7345 Miscellaneous Notes* Telephone Encounter - Bia Cao MD - 07/25/2025 9:59 AM EDT Approvals with refills documented in this encounterMadison Medical CenterLfjybqpeaz66-23-9925 History of Present illness Narrative* Shaye Palmer RN - 07/20/2025 1:00 PM EDT Patient presents for Evenity injection as scheduled. Calcium reviewed with patient, WNL at 9.4, medication indicated Injection administered in Right upper arm SQ tissue without issue and Pt tolerates well Sites covered with band aids. Next injection scheduled at front line supervisor Patient discharged in stable condition to private vehicle in care of her granddaughter. documented in this encounterOhioHealth Arthur G.[facility]08-25-2025 History of Present illness Narrative* John Johnson MD - 07/16/2025 8:01 PM EDT Normal calcium levels documented in this encounterOhioHealth Arthur G.[facility]. [facility], [facility] Center08-19-2025 History of Present illness Narrative* Bia Cao MD - 07/10/2025 1:00 PM EDTAssociated Problem(s): Stage 3b chronic kidney disease (CKD) ([facility]) Orders: CBC and differential; Future Comprehensive metabolic panel; Future * Bia Cao MD - 07/10/2025 1:00 PM EDTAssociated Problem(s): Major depressive disorder, single episode, in full remission Orders: CBC and differential; Future * Bia Cao MD - 07/10/2025 1:00 PM EDTAssociated Problem(s): Age-related osteoporosis without current pathological fracture Orders: Vitamin D 25 hydroxy; Future * Bia Cao MD - 07/10/2025 1:00 PM EDTAssociated Problem(s): Asthma (HCC) stable * Bia Cao MD - 07/10/2025 1:00 PM EDTAssociated Problem(s): Chronic idiopathic constipation Recommend metamucil * Bia Cao MD - 07/10/2025 1:00 PM EDT Images from the original note were not [...] was placed at her last visit, but shehas not heard from them. She reports nasal [...] levels due to family issues. 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 Her professional employer consultant is receiving counseling, but the situation remains challenging. Social History: Diet: She consumes dairy products. Living Condition: Lives with a professional employer consultant who recently lost a baby. Objective BP 122/68 (BP Location: Left arm, Patient Position: Sitting, BP Cuff Size: Adult) Pulse 71 Resp18 Ht 5' 3 Wt 136 lb 6.4 [...] Plan Stage 3b chronic kidney disease (CKD) ([facility]) Orders: CBC and differential; Future Comprehensive [...] scheduled in 4 months. documented in this encounterMadison Medical CenterSgixiyxnlf40-31-1443 Telephone encounter Note* Telephone Encounter - Torres Wood - 06/26/2025 2:21 PM EDT Angela asking if she can stop in and leave a urine spc. - she has UTI symptoms - she said Dr Cao usually allows her to just come in and leave a urine spc . Please call and let her know when to come in [phone] [facility] CenterFmjvmmgzyt40-14-5169 Miscellaneous Notes* Telephone Encounter - Torres Wood - 06/26/2025 2:21 PM EDT Angela asking if she can stop in and leave a urine spc. - she has UTI symptoms - she said Dr Cao usually allows her to just come in and leave a urine spc . Please call and let her know when to come in [phone] documented in this encounterMadison Medical CenterThslhgesuo63-03-0945 Evaluation + Plan note* Assessment & Plan Note - MINH Gallagher - 06/13/2025 2:22 PM EDT Associated Problem(s): Urge incontinence We will see her back in January with a KUB. She will call sooner if she has any problems. If she suspects an infection, she can contact the office so that we can have her stop at the lab for culture [facility]07-23-2025 Miscellaneous Notes* Assessment & Plan Note - MINH Gallagher - 06/13/2025 2:22 PM EDTAssociated Problem(s): Urge incontinence We will see her back in January with a KUB. She will call sooner if she has any problems. If she suspects an infection, she can contact the office so that we can have her stop at the lab for culture documented in this encounterOhioHealth Arthur G.[facility]07-23-2025 History of Present illness Narrative* MINH Gallagher - 06/13/2025 2:00 PM EDT Images from the original note were not included. [address] [place] [address] [facility] [address] [facility] [address] Patient: Angela Ruth Date of : 1945 Encounter Date: 06/13/2025 History of Present Illness: Chief Complaint: Follow up The patient is a 80 y.o. female, an established patient, and is here for follow- up. Please see her history below. She has not had any Urinary tract infection since her last appointment. She started taking cranberry tablets. She denies any current urologic concerns. Summary of old records: [place] 02/27/25: The Myrbetriq was too expensive so [...] has never smoked. She had a CT withoutcontrast performed 02/13/2025. I am not able to [...] the past 8-9 months. Been treated with oxybutyninextended release 10 mg. That did help some. [...] consumption. She had been working on her constipationbut found that MiraLax is causing diarrhea. Even [...] , EXTPOCUBAC , EXTPOCUTREP , EXTPOCUPH , EXTPOCUL EE in the last 72 hours. Last BUN and creatinine: Lab Results Component Value Date BUN 02/11/2024 Lab Results Component Value Date CREATININE 1.01 (H) 02/11/2024 Past Medical, Family, and Social History Update: The following portions of the patient's history were reviewed and updated as appropriate: allergies, current medications, past family history, past medical history, past social history, past surgicalhistory and problem list. Past Medical History: Diagnosis Date Age related osteoporosis Allergic 1952 Allergic rhinitis 1951 Arthritis Asthma Atrophy of vocal cord Basal cell carcinoma of skin Benign familial tremor BPPV (benign paroxysmal positional vertigo) Brain tumor (benign) ([facility]) Breast disorder 4 biopsies Bronchitis 01/01/2017 Cancer ([facility]) Basal cell Carpal tunnel syndrome [...] anesthesia Recurrent UTI 2021 Retinopathy Scoliosis Shingles 2007 Skin cancer Subjective tinnitus Syncope Varicella 1953 Vertigo Visual impairment Glasses Past Surgical History: Procedure Laterality Date ADENOIDECTOMY 1952 APPENDECTOMY 1965 ARM SURGERY 2019. BACK SURGERY Upper Back Surgery BREAST BIOPSY 1979, 1999 BREAST SURGERY 1981 2002 Biopsy four times CHOLECYSTECTOMY 2001 COLONOSCOPY w/ bx N/A 07/07/2018 Performed by Alexander Leach MD at [facility] ENDOSCOPY COSMETIC SURGERY 1985 DISCECTOMY 1990 Partial L4-5 EGD 2001 EYE SURGERY 2014 FOOT SURGERY 2009 Reattachment of tendon left foot with bone graft HIP SURGERY 2003 Excision of bursa left hip HYSTERECTOMY 1984 INJECTION BLOCK EPIDURAL STEROID LUMBAR/SACRAL Left L 5,1 NR Left 12/20/2020 Performed by Shubham Clifton MD at [facility] INJECTION BLOCK NERVE MEDIAL BRANCH right C 4/5,5/6 Right 05/22/2022 Performed by Shubham Clifton MD at [facility] INJECTION BLOCK NERVE MEDIAL BRANCH right C 4/5,5/6 Right 04/17/2022 Performed by Shubham Clifton MD at [facility] INJECTION CAUDAL EPIDURAL WITH CATHETER, STEROID N/A 03/07/2018 Performed by Shubham Clifton MD at [facility] IN[facility]CTION LARGE JOINT BURSA: bilat hip Bilateral 12/10/2017 Performed by Shubham Clifton MD at [facility] INJECTION MEDIAL BRANCH NERVE BLOCK Bilateral L 4/5, 5/1 Bilateral 06/28/2017 Performed by Shubham Clifton MD at [facility] INJECTION MEDIAL BRANCH NERVE BLOCK Right L 2/3, 3/4 Right 12/08/2019 Performed by Shubham Clifton MD at [facility] INJECTION MEDIAL BRANCH NERVE BLOCK RIGHT L23 34 Right 01/19/2020 Performed by Shubham Clifton MD at [facility] INJECTION SI JOINT Bilateral 04/09/2017 Performed by Shubham Clifton MD at [facility] INJECTION SI JOINT Bilateral SI Joint Bilateral 05/31/2020 Performed by Shubham Clifton MD at [facility] INJECTION SI JOINT Left SI JOint Left 01/06/2019 Performed by Shubham Clifton MD at [facility] INJECTION SI JOINT Right SI Joint Right 06/09/2019 Performed by Shubham Clifton MD at [facility] INJECTION SPINE TRANSFORAMINAL Left L 4, 5 NR Left 09/24/2017 Performed by Shubham Clifton MD at [facility] INJECTION SPINE TRANSFORAMINAL Left L 5,1 Nroot Left 01/08/2023 Performed by Shubham Clifton MD at [facility] SPINE TRANSFORAMINAL Right L 5,1 Nroot Right 11/27/2022 Performed by Shubham Clifton MD at [facility] STEROID EPI 1 WITH SEDATION Left 5,1 NR Left 05/08/2019 Performed by Shubham Clifton MD at [facility] KNEE ARTHROSCOPY 2010, 2013 KNEE SURGERY 2010 2013 Arthroscopy bilateral/repair meniscus right X2, left X1 LAMINECTOMY LUMBAR FORAMENOTOMY MULTI LEVEL L1-2 RIGHT/L2-3 BILATERAL/LUMBAR DRAIN INSERTION N/A 07/03/2021 Performed by Corey Chacon MD at [facility] LAPAROTOMY OOPHERECTOMY Bilateral 1984 LUMBAR DISCECTOMY LUMBAR FUSION 2010 L3-5 LUMBAR LAMINECTOMY MICRO LUMBAR DISCECTOMY L5-S1/ FORAMINOTOMY L5-S1 Left 01/14/2017 Performed by Corey Chacon MD at [facility] OOPHORECTOMY 1982 OTHER SURGICAL HISTORY Knee Arthroscopy With Medial Meniscus Repair OTHER SURGICAL HISTORY Spinal Diskectomy RADIO FREQUENCY ABLATION Left L 4/5, 5/1 Left 12/02/2018 Performed by Shubham Clifton MD at [facility] RADIO FREQUENCY ABLATION Left L 4/5, / Left 07/30/2017 Performed by Shubham Clifton MD at [facility] RADIO FREQUENCY ABLATION Left SI joint Left 03/31/2019 Performed by Shubham Clifton MD at [facility] RADIO FREQUENCY ABLATION Right L2/3, 3/4 Right 03/29/2020 Performed by Shubham Clifton MD at [facility] RADIOFREQUENCY ABLATION SPINAL Left Si joint Left 05/07/2017 Performed by Shubham Clifton MD at [facility] RADIOFREQUENCY ABLATION SPINAL Right C 4/5,5/6 Right 06/26/2022 Performed by Shubham Clifton MD at [facility] RADIOFREQUENCY ABLATION SPINAL RIGHT SI JOINT Right 05/21/2017 Performed by Shubham Clifton MD at [facility] RELEASE CARPAL TUNNEL Left 11/04/2021 Performed by Corey Chacon MD at [facility] SHOULDER SURGERY 2012 Right rotator [...] 2 tablets (1,000 mg total) by mouth every6 (six) hours as needed for pain. albuterol (PROVENTIL HFA;VENTOLIN HFA) 90 mcg/actuation inhaler Inhale 2 puffs every 4 (four) hoursas needed for wheezing or shortness of breath. PRO AIR amitriptyline (ELAVIL) 50 mg tablet Take 1 tablet (50 mg total) by mouth nightly. 90 tablet 3 ascorbic acid (VITAMIN C) 500 mg tablet Take 2 tablets (1,000 mg total) by mouth in the morning. aspirin 81 mg Take 1 tablet (81 mg total) by mouth in the morning. uymjyvo-zjtagvjpqjxll-dfueylrg (EXCEDRIN MIGRAINE) 250-250-65 mg per tablet Take [...] hospitalization) Allergies: Indocin [indomethacin], Lincocin [lincomycin], Lincosamides, Sngmbmxf-0-nf9 antimigraine agents, Adhesive, Eggshell membrane, Influenza virus [...] caffeine as well as addressing constipation with myhg-ogi-agxauec agents. If no improvement can add beta 3 agonist 12/19/2024: No substantial improvement with decreased caffeine consumption and treatment of constipation. Plan to trial Myrbetriq 50 mg. She will monitor blood pressure at home. We will continue oxybutynin. 02/27/25: Myrbetriq too expensive. She reports her main concern is UTIs. Several recent cultures havebeen positive for E coli. CT shows punctate [...] at the lab for culture Follow-up: Dr. Kraemr in February with MINH SAN This note was created with the assistance of a speech recognition program. While intending to generate a timely document that accurately reflects the content of the visit, no guarantee can be provided that every grammatical or spelling mistake has been or will be identified or corrected. Thank you for your understanding. MINH Gallagher 06/13/25 1422 documented in this encounterOhioHealth Arthur G.[facility]07-23-2025 History of Present illness Narrative* Abran Maldondao RN - 06/13/2025 12:30 PM EDT Patient is here for Evenity injection as scheduled. Calcium reviewed with patient, WNL at 9.5. OK to proceed with Evenity as planned. Medication administered in left upper arm subcutaneous tissue without incident and patient tolerated well. Sites covered with band aids. Treatment calendar. Patient d ischarged in stable condition to private vehicle in care of her granddaughter. documented in this encounterOhioHealth Arthur G.[facility]06-25-2025 History of Present illness Narrative* Joan Myers RN - 05/16/2025 10:30 AM EDT Patient is here for Evenity injection as scheduled. Calcium reviewed with patient, WNL at 9.7. OK to proceed with Evenity as planned. Medication administered in left upper arm subcutaneous tissue without incident and patient tolerated well. Sites covered with band aids. Treatment calendar and lab results provided. Patient discharged in stable condition to private vehicle in care of her granddaughter. documented in this encounterOhioHealth Arthur G.[facility]06-17-2025 Telephone encounter Note* Telephone Encounter - Katerin Alvarado MD - 05/08/2025 11:15 AM EDT prn [facility] [employer] Work Phone: [phone] 997-822006-17-2025 Miscellaneous Notes* Telephone Encounter - Katerin Alvarado MD - 05/08/2025 11:15 AM EDT prn * Telephone Encounter - Alix Alvarado - 05/08/2025 11:02 AM EDT Called pt to see if she is planning on scheduling with doctor regarding outgoing referral, pt said no, she does not want to schedule any appts. documented in this encounterMadison Medical CenterSkdyktodme40-03-7733 Telephone encounter Note* Telephone Encounter - Alix Timrocky - 05/08/2025 11:02 AM EDT Called pt to see if she is planning on scheduling with doctor regarding outgoing referral, pt said no, she does not want to schedule any appts. [facility] [id number] History of Present illness Narrative* John Johnson MD - 04/18/2025 1:30 PM EDT Reason for Visit: Angela Ruth is a [...] vertigo) Brain tumor (benign) ([facility]) Breast disorder 4 biopsies Bronchitis 01/01/2017 Cancer ([facility]) Basal cell Carpal tunnel syndrome Cataract Chronic [...] COLONOSCOPY w/ bx N/A 07/07/2018 Performed by Alexanedr Leach MD at [facility] ENDOSCOPY COSMETIC SURGERY 1985 DISCECTOMY 1989 Partial L4-5 EGD 2001 EYE SURGERY 2015 FOOT SURGERY 2009 Reattachment of tendon left foot with bone graft HIP SURGERY 2003 Excision of bursa left hip HYSTERECTOMY 1984 INJECTION BLOCK EPIDURAL STEROID LUMBAR/SACRAL Left L 5,1 NR Left 12/20/2020 Performed by Shubham Clifton MD at [facility] INJECTION BLOCK NERVE MEDIAL BRANCH right C 4/5,5/6 Right 05/22/2022 Performed by Shubham Clifton MD at [facility] INJECTION BLOCK NERVE MEDIAL BRANCH right C 4/5,5/6 Right 04/17/2022 Performed by Shubham Clifton MD at [facility] CAUDAL EPIDURAL WITH CATHETER, STEROID N/A 03/07/2018 Performed by Shubham Clifton MD at [facility] LARGE JOINT BURSA: bilat hip Bilateral 12/10/2017 Performed by Shubham Clifton MD at [facility] MEDIAL BRANCH NERVE BLOCK Bilateral L 4/5, 5/1 Bilateral 06/28/2017 Performed by Shubham Clifton MD at [facility] MEDIAL BRANCH NERVE BLOCK Right L 2/3, 3/4 Right 12/08/2019 Performed by Shubham Clifton MD at [facility] MEDIAL BRANCH NERVE BLOCK RIGHT L23 34 Right 01/19/2020 Performed by Shubham Clifton MD at [facility] INJECTION SI JOINT Bilateral 04/09/2017 Performed by Shubham Clifton MD at [facility] INJECTION SI JOINT Bilateral SI Joint Bilateral 05/31/2020 Performed by Shubham Clifton MD at [facility] INJECTION SI JOINT Left SI JOint Left 01/06/2019 Performed by Shubham Clifton MD at [facility] INJECTION SI JOINT Right SI Joint Right 06/09/2019 Performed by Shubham Clifton MD at [facility] SPINE TRANSFORAMINAL Left L 4, 5 NR Left 09/24/2017 Performed by Shubham Clifton MD at [facility] INJECTION SPINE TRANSFORAMINAL Left L 5,1 Nroot Left 01/08/2023 Performed by Shubham Clifton MD at [facility] INJECTION SPINE TRANSFORAMINAL Right L 5,1 Nroot Right 11/27/2022 Performed by Shubham Clifton MD at [facility] STEROID EPI 1 WITH SEDATION Left 5,1 NR Left 05/08/2019 Performed by Shubham Clifton MD at [facility] KNEE ARTHROSCOPY 2013 KNEE SURGERY 2010 2013 Arthroscopy bilateral/repair meniscus right X2, left X1 LAMINECTOMY LUMBAR FORAMENOTOMY MULTI LEVEL L1-2 RIGHT/L2-3 BILATERAL/LUMBAR DRAIN INSERTION N/A 07/03/2021 Performed by Corey Chacon MD at [facility] LAPAROTOMY OOPHERECTOMY Bilateral 1984 LUMBAR DISCECTOMY LUMBAR FUSION 2010 L3-5 LUMBAR LAMINECTOMY MICRO LUMBAR DISCECTOMY L5-S1/ FORAMINOTOMY L5-S1 Left 01/14/2017 Performed by Corey Chacon MD at [facility] OOPHORECTOMY 1982 OTHER SURGICAL HISTORY Knee Arthroscopy With Medial Meniscus Repair OTHER SURGICAL HISTORY Spinal Diskectomy RADIO FREQUENCY ABLATION Left L 4/5, 5/1 Left 12/02/2018 Performed by Shubham Clifton MD at [facility] RADIO FREQUENCY ABLATION Left L 4/5, 5/1 Left 07/30/2017 Performed by Shubham Clifton MD at [facility] RADIO FREQUENCY ABLATION Left SI joint Left 03/31/2019 Performed by Shubham Clifton MD at [facility] RADIO FREQUENCY ABLATION Right L2/3, 3/4 Right 03/29/2020 Performed by Shubham Clifton MD at [facility] RADIOFREQUENCY ABLATION SPINAL Left Si joint Left 05/07/2017 Performed by Shubham Clifton MD at [facility] RADIOFREQUENCY ABLATION SPINAL Right C 4/5,5/6 Right 06/26/2022 Performed by Shubham Clifton MD at [facility] RADIOFREQUENCY ABLATION SPINAL RIGHT SI JOINT Right 05/21/2017 Performed by Shubham Clifton MD at [facility] RELEASE CARPAL TUNNEL Left 11/04/2021 Performed by Corey Chacon MD at [facility] SHOULDER SURGERY 2011 Right rotator [...] mouth in the morning., Disp: , Rfl: iphzcxf-veisjgxjwrril-ivqjadil (EXCEDRIN MIGRAINE) 250-250-65 mg per tablet, Take 1 tablet by mouthevery 6 (six) hours as needed for headaches., [...] meals. TAKE 1 TABLET BY MOUTH EVERY MORNINGAND 1 TABLET EVERY EVENING WITH MEALS., Disp: [...] 1 tablet (50 mg total) by mouth inthe morning., Disp: 30 tablet, Rfl: 0 omeprazole [...] Hypotension fainting Lincocin [Lincomycin] Anaphylaxis Lincosamides Anaphylaxis Crxffzcg-4-[id number] Antimigraine Agents History of cardiovascular and cerebrovascular [...] months with doctor John Johnson MD, MPH, [facility] [address] [address] Dept: [phone] FAX: [phone] documented in this encounterOhioHealth Arthur [facility]05-28-2025 Instructions* Patient Instructions* John Johnson MD - 04/18/2025 1:30 PM EDT December 08, 2025 DEXA documented in this encounterOhioHealth Arthur G.[facility]05-28-2025 History of Present illness Narrative* Abran Maldonado RN - 04/18/2025 10:30 AM EDT Pt here for evenity injection as scheduled. Denies any issues with previous injections. Calcium 9.5. Evenity given SQ to bilat upper arms. Pt tolerated well. Treatment calendar given. Pt dc'd in stable ambulatory condition. documented in this encounterDiley Ridge Medical CenterOrbster E[facility] Medical [id number] History of Present illness Narrative* Bia Cao MD - 04/09/2025 1:40 PM EDT Images from the original note were not included. Angela Ruth is a 79 y.o. female presents with chief complaint of Follow-up HPI: HPI History of Present Illness The patient presents for evaluation of migraines, a recent fall, carpal tunnel syndrome, and arthritis. She has not recently consulted with her belt puncher but acknowledges the need for a follow-up [...] stove. The patient has limited counter space inher kitchen, which leads to items being placed on the floor. Her last physical therapy session was approximately 2 to 3 months ago, during which she achieved her therapeutic goals. She continues to pe rform the prescribed exercises at home. She reports [...] 1952 APPENDECTOMY 1965 BREAST BIOPSY x4 - [id number] CHOLECYSTECTOMY 2002 EYE SURGERY 01/21/2023 retinal repair [facility] HEMANGIOMA EXCISION 1946 from upper back HYSTERECTOMY 1984 KNEE SURGERY Bilateral arthroscopic knee surgery x3 (Rx2, Lx1) ([id number]) LAPAROTOMY OOPHERECTOMY 1985 LUMBAR DISCECTOMY 1989 partial LUMBAR DISCECTOMY 01/14/2017 Microdiscetomy L5-S1 LUMBAR DISCECTOMY 07/03/2021 L1-2 partial discectomy, L1-2, L2-3 cleaning out of stenosis in the spinal canal DR. Edwards [facility] LUMBAR EPIDURAL INJECTION 12/20/2020 Dr Clifton [...] Grandmother Sandra Baer Stroke Paternal Grandmother Sandra aBer Alcohol abuse Father's Brother Jesús Baer Cancer [...] Depression: Not at risk (02/12/2025) Received from [facility] PHQ-2 Total Score: 2 REVIEW OF SYMPTOMS: [...] This Visit Essential hypertension ([facility]/HCC) Overview Managed by dr cifuentes Relevant Medications lisinopril-hydroCHLOROthiazide 20-12.5 MG tablet Other Visit Diagnoses Intractable migraine with aura without status migrainosus ([facility]) - Primary Relevant Orders Ambulatory referral to [...] scheduled in 3 months. documented in this encounterMadison Medical [id number] Telephone encounter Note* Telephone Encounter - Bia Cao MD - 03/22/2025 9:52 AM EDT Approvals with refills [facility] [id number] Miscellaneous Notes* Telephone Encounter - Bia Cao MD - 03/22/2025 9:52 AM EDT Approvals with refills documented in this encounterMadison Medical [id number] History of Present illness Narrative* Abran Maldonado RN - 03/21/2025 10:30 AM EDT Pt here for evenity injection as scheduled. Denies any issues with previous injections. Calcium 9.6. Evenity given SQ to bilat upper arms. Pt tolerated well. Treatment calendar given. Pt dc'd in stable ambulatory condition. documented in this encounterOhioHealth Arthur G.[facility]04-08-2025 Evaluation + Plan note* Assessment & Plan Note - MINH Gallagher - 02/27/2025 3:14 PM EDT Associated Problem(s): Urge incontinence We discussed cranberry/D mannose supplements, topical estrogen cream, methenamine, or a prophylactic antibiotic. [facility]04-08-2025 Miscellaneous Notes* Assessment & Plan Note - MINH Gallagher - 02/27/2025 3:14 PM EDTAssociated Problem(s): Urge incontinence We discussed cranberry/D mannose supplements, topical estrogen cream, methenamine, or a prophylactic antibiotic. documented in this encounterOhioHealth Arthur G.[facility]04-08-2025 History of Present illness Narrative* MINH Gallagher - 02/27/2025 2:30 PM EDT Images from the original note were not included. [address] [facility] [address] Patient: Angela Ruth Date of : 1945 Encounter Date: 02/27/2025 History of Present Illness: Chief Complaint: 1 month follow up The patient is a 79 y.o. female, an established patient, and is here for follow- up. Please see her history below. The Myrbetriq [...] has never smoked. She had a CT withoutcontrast performed 02/13/2025. I am not able to [...] the past 8-9 months. Been treated with oxybutyninextended release 10 mg. That did help some. [...] consumption. She had been working on her constipationbut found that MiraLax is causing diarrhea. Even [...] past medical history, past social history, past surgicalhistory and problem list. Past Medical History: Diagnosis Date Age related osteoporosis Allergic 1951 Allergic rhinitis 1951 Arthritis Asthma Atrophy of vocal cord Basal cell carcinoma of skin Benign familial tremor BPPV (benign paroxysmal positional vertigo) Brain tumor (benign) ([facility]) Breast disorder 4 biopsies Bronchitis 01/01/2017 Cancer ([facility]) Basal cell Carpal tunnel syndrome Cataract Chronic [...] Performed by Alexander Leach MD at [facility] ENDOSCOPY COSMETIC SURGERY 1985 DISCECTOMY 1989 Partial L4-5 EGD 2001 EYE SURGERY 2014 FOOT SURGERY 2009 Reattachment of tendon left foot with bone graft HIP SURGERY 2003 Excision of bursa left hip HYSTERECTOMY 1983 INJECTION BLOCK EPIDURAL STEROID LUMBAR/SACRAL Left L 5,1 NR Left 12/20/2020 Performed by Shubham Clifton MD at [facility] INJECTION BLOCK NERVE MEDIAL BRANCH right C 4/5,5/6 Right 05/22/2022 Performed by Shubham Clifton MD at [facility] INJECTION BLOCK NERVE MEDIAL BRANCH right C 4/5,5/6 Right 04/17/2022 Performed by Shubham Clifton MD at [facility] CAUDAL EPIDURAL WITH CATHETER, STEROID N/A 03/07/2018 Performed by Shubham Clifton MD at [facility] LARGE JOINT BURSA: bilat hip Bilateral 12/10/2017 Performed by Shubham Clifton MD at [facility] MEDIAL BRANCH NERVE BLOCK Bilateral L 4/5, 5/1 Bilateral 06/28/2017 Performed by Shubham Clifton MD at [facility] INJECTION MEDIAL BRANCH NERVE BLOCK Right L 2/3, 3/4 Right 12/08/2019 Performed by Shubham Clifton MD at [facility] MEDIAL BRANCH NERVE BLOCK RIGHT L23 34 Right 01/19/2020 Performed by Shubham Clifton MD at [facility] INJECTION SI JOINT Bilateral 04/09/2017 Performed by Shubham Clifton MD at [facility] INJECTION SI JOINT Bilateral SI Joint Bilateral 05/31/2020 Performed by Shubham Clifton MD at [facility] INJECTION SI JOINT Left SI JOint Left 01/06/2019 Performed by Shubham Clifton MD at [facility] INJECTION SI JOINT Right SI Joint Right 06/09/2019 Performed by Shubham Clifton MD at [facility] INJECTION SPINE TRANSFORAMINAL Left L 4, 5 NR Left 09/24/2017 Performed by Shubham Clifton MD at [facility] INJECTION SPINE TRANSFORAMINAL Left L 5,1 Nroot Left 01/08/2023 Performed by Shubham Clifton MD at [facility] INJECTION SPINE TRANSFORAMINAL Right L 5,1 Nroot Right 11/27/2022 Performed by Shubham Clifton MD at [facility] STEROID EPI 1 WITH SEDATION Left 5,1 NR Left 05/08/2019 Performed by Shubham Clifton MD at [facility] KNEE ARTHROSCOPY 2013 KNEE SURGERY 2010 2013 Arthroscopy bilateral/repair meniscus right X2, left X1 LAMINECTOMY LUMBAR FORAMENOTOMY MULTI LEVEL L1-2 RIGHT/L2-3 BILATERAL/LUMBAR DRAIN INSERTION N/A 07/03/2021 Performed by Corey Chacon MD at [facility] LAPAROTOMY OOPHERECTOMY Bilateral 1984 LUMBAR DISCECTOMY LUMBAR FUSION 2010 L3-5 LUMBAR LAMINECTOMY MICRO LUMBAR DISCECTOMY L5-S1/ FORAMINOTOMY L5-S1 Left 01/14/2017 Performed by Corey Chacon MD at [facility] OOPHORECTOMY 1982 OTHER SURGICAL HISTORY Knee Arthroscopy With Medial Meniscus Repair OTHER SURGICAL HISTORY Spinal Diskectomy RADIO FREQUENCY ABLATION Left L 4/5, 5/1 Left 12/02/2018 Performed by Shubham Clifton MD at [facility] RADIO FREQUENCY ABLATION Left L 4/5, 5/1 Left 07/30/2017 Performed by Shubham Clifton MD at [facility] RADIO FREQUENCY ABLATION Left SI joint Left 03/31/2019 Performed by Shubham Clifton MD at [facility] RADIO FREQUENCY ABLATION Right L2/3, 3/4 Right 03/29/2020 Performed by Shubham Clifton MD at [facility] RADIOFREQUENCY ABLATION SPINAL Left Si joint Left 05/07/2017 Performed by Shubham Clifton MD at [facility] RADIOFREQUENCY ABLATION SPINAL Right C 4/5,5/6 Right 06/26/2022 Performed by Shubham Clifton MD at [facility] RADIOFREQUENCY ABLATION SPINAL RIGHT SI JOINT Right 05/21/2017 Performed by Shubham Clifton MD at [facility] RELEASE CARPAL TUNNEL Left 11/04/2021 Performed by Corey Chacon MD at [facility] SHOULDER SURGERY 2011 Right rotator [...] 2 tablets (1,000 mg total) by mouth every6 (six) hours as needed for pain. albuterol (PROVENTIL HFA;VENTOLIN HFA) 90 mcg/actuation inhaler Inhale 2 puffs every 4 (four) hoursas needed for wheezing or shortness of breath. PRO AIR ascorbic acid (VITAMIN C) 500 mg tablet Take 2 tablets (1,000 mg total) by mouth in the morning. aspirin 81 mg Take 1 tablet (81 mg total) by mouth in the morning. nhasaqx-iibwphdrrffji-rvbarxzv (EXCEDRIN MIGRAINE) 250-250-65 mg per tablet Take [...] hospitalization) Allergies: Indocin [indomethacin], Lincocin [lincomycin], Lincosamides, Yrzgsdxz-8-ux4 antimigraine agents, Adhesive, Eggshell membrane, Influenza virus [...] caffeine as well as addressing constipation with dlsn-zor-zrwpvxa agents. If no improvement can add beta 3 agonist 12/19/2024: No substantial improvement with decreased caffeine consumption and treatment of constipation. Plan to trial Myrbetriq 50 mg. She will monitor blood pressure at home. We will continue oxybutynin. 02/27/25: Myrbetriq too expensive. She reports her main concern is UTIs. Several recent cultures havebeen positive for E coli. CT shows punctate [...] Kramer or me in 3-4 months in [place] MINH GALLAGHER This note was created with the assistance of a speech recognition program. While intending to generate a timely document that accurately reflects the content of the visit, no guarantee can be provided that every grammatical or spelling mistake has been or will be identified or corrected. Thank you for your understanding. MINH Gallagher 02/27/25 1515 documented in this encounterOhioHealth Arthur G.[facility]04-08-2025 Instructions* Patient Instructions* MINH Gallagher - 02/27/2025 2:30 PM EDT For Urinary tract infection prevention, we could consider having you try cranberry and or D mannosesupplements. Other options include topical estrogen cream, methenamine, or a daily prophylactic antibiotic. Your recent CT showed you have a few small stones in the right kidney but they were not causing anyproblems at that time. These are not likely [...] options and send me a note through [employer] or call and let me know what you want todo. documented in this encounterOhioHealth Arthur [facility]03-31-2025 Telephone encounter Note* Telephone Encounter - Bia Cao MD - 02/19/2025 12:52 PM EDT Approvals with refills [facility] [id number] Miscellaneous Notes* Telephone Encounter - Bia Cao MD - 02/19/2025 12:52 PM EDT Approvals with refills documented in this encounterMadison Medical [id number] History of Present illness Narrative* Emerita Borden RN - 02/16/2025 1:00 PM EDT Patient here for Evenity injection Vitals WNL Injection given sub q in the Right arm Patient tolerated well Calendar given for next injection documented in this encounterOhioHealth Arthur [facility]03-24-2025 Telephone encounter Note* Telephone Encounter - Maryan Aponte - 02/12/2025 4:08 PM EDT Nancy- pharmacy from [facility] calling to let you know that they received rx for remeron and they cannot fill due to drug interaction with amitriptyline prescribed by Dr. Dorsey. It is a category X- cannot fill. Increased risk of serotonin syndrome. She has been on amitriptyline for years. Please advise jil. Thank you. [facility] [id number] Miscellaneous Notes* Telephone Encounter - Maryan Aponte - 02/12/2025 4:08 PM EDT Nancy- pharmacy from [facility] in [place] calling to let you know that they received rx for remeron and they cannot fill due to drug interaction with amitriptyline prescribed by Dr. Dorsey. It is a category X- cannot fill. Increased risk of serotonin syndrome. She has been on amitriptyline for years. Please advise jil. Thank you. documented in this encounterMadison Medical [id number] History of Present illness Narrative* Yoanna Dorsey APRN-MAHENDRA - 02/12/2025 8:00 AM EDT Images from the original note were not included. Subjective: Patient ID: Angela Ruth is a 79 y.o. female presenting for neurological follow-up. History of Present Illness: Angela Ruth is followed regarding increase in common migraine cephalgia that have been presentseveral years. They are usually steady and pressure-like but sometimes throbbing and pounding. Theyare associated with photophobia, nausea, rare vomiting. She [...] mg TID Inderal (tremors) Midrin Migraine cocktails [place] PRN Occipital nerve blocks (last 03/2021) Propranolol [...] L2-L3, with mild central canal narrowing, overall relativelystable. CT brain (02/13/2022): No evidence of intracranial [...] have completed occipital nerve blocks with good im provements in her headaches. She is now taking Robaxin to help with the muscle tightness. She continues to do the exercises and stretches she learned at physical therapy. Ubrelvy typically works wellwhen the headaches turn into migraines. She continues to feel off-balance most of the time. She fell in December. She is working with PT for her balance again. She saw Dr. 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 He referred her to the [facility] for evaluation for possible gamma knife intervention. The plan is for her tohave a repeat MRI brain at the 6 month lenny. They did not think that it is causing her balance difficulties. They recommended that other causes of imbalance be considered and that she follow up with audiology regarding her hearing loss. She has been taking 50 mg amitriptyline for sleep. She usuallygets about 6-7 hours of sleep a night total while taking it. She may wake up once in the middle of the night for about an hour. She then sleeps another 3-4 hours. The following portions of the patient's history were reviewed and updated as appropriate: allergies, current medications, past family history, past medical history, past social history, past surgicalhistory and problem list. Review of Systems Constitutional: [...] Negative for arthralgias, gait problem, joint swelling andneck pain. Skin: Negative. Allergic/Immunologic: Negative. Neurological: Positive for headaches. Negative for dizziness, tremors, seizures, syncope, facial asymmetry, speech difficulty, weakness, light-headedness and numbness. Hematological: Negative. Psychiatric/Behavioral: Negative for agitation, behavioral problems, confusion, decreased concentration, dysphoric mood, hallucinations, self-injury, sleep disturbance and suicidal ideas. The patientis not nervous/anxious and is not hyperactive. Past Medical History: Diagnosis Date Age related osteoporosis Allergic 1951 Allergic rhinitis 1951 Arthritis Asthma Atrophy of vocal cord Basal cell carcinoma of skin Benign familial tremor BPPV (benign paroxysmal positional vertigo) Brain tumor (benign) ([facility]) Breast disorder 4 biopsies Bronchitis 01/01/2017 Cancer ([facility]) Basal cell Carpal tunnel syndrome Cataract Chronic [...] Performed by Alexander Leach MD at [facility] ENDOSCOPY COSMETIC SURGERY 1985 DISCECTOMY 1990 Partial L4-5 EGD 2001 EYE SURGERY 2015 FOOT SURGERY 2009 Reattachment of tendon left foot with bone graft HIP SURGERY 2004 Excision of bursa left hip HYSTERECTOMY 1984 INJECTION BLOCK EPIDURAL STEROID LUMBAR/SACRAL Left L 5,1 NR Left 12/20/2020 Performed by Shubham Clifton MD at [facility] INJECTION BLOCK NERVE MEDIAL BRANCH right C 4/5,5/6 Right 05/22/2022 Performed by Shubham Clifton MD at [facility] INJECTION BLOCK NERVE MEDIAL BRANCH right C 4/5,5/6 Right 04/17/2022 Performed by Shubham Clifton MD at [facility] IN[facility] CAUDAL EPIDURAL WITH CATHETER, STEROID N/A 03/07/2018 Performed by Shubham Clifton MD at [facility] LARGE JOINT BURSA: bilat hip Bilateral 12/10/2017 Performed by Shubham Clifton MD at [facility] MEDIAL BRANCH NERVE BLOCK Bilateral L 4/5, 5/1 Bilateral 06/28/2017 Performed by Shubham Clifton MD at [facility] MEDIAL BRANCH NERVE BLOCK Right L 2/3, 3/4 Right 12/08/2019 Performed by Shubham Clifton MD at [facility] MEDIAL BRANCH NERVE BLOCK RIGHT L23 34 Right 01/19/2020 Performed by Shubham Clifton MD at [facility] SI JOINT Bilateral 04/09/2017 Performed by Shubham Clifton MD at [facility] SI JOINT Bilateral SI Joint Bilateral 05/31/2020 Performed by Shubham Clifton MD at [facility] SI JOINT Left SI JOint Left 01/06/2019 Performed by Shubham Clifton MD at [facility] SI JOINT Right SI Joint Right 06/09/2019 Performed by Shubham Clifton MD at [facility] SPINE TRANSFORAMINAL Left L 4, 5 NR Left 09/24/2017 Performed by Shubham Clifton MD at [facility] SPINE TRANSFORAMINAL Left L 5,1 Nroot Left 01/08/2023 Performed by Shubham Clifton MD at [facility] SPINE TRANSFORAMINAL Right L 5,1 Nroot Right 11/27/2022 Performed by Shubham Clifton MD at [facility] STEROID EPI 1 WITH SEDATION Left 5,1 NR Left 05/08/2019 Performed by Shubham Clifton MD at [facility] KNEE ARTHROSCOPY 2013 KNEE SURGERY 2010 2013 Arthroscopy bilateral/repair meniscus right X2, left X1 LAMINECTOMY LUMBAR FORAMENOTOMY MULTI LEVEL L1-2 RIGHT/L2-3 BILATERAL/LUMBAR DRAIN INSERTION N/A 07/03/2021 Performed by Corey Chacon MD at [facility] LAPAROTOMY OOPHERECTOMY Bilateral 1984 LUMBAR DISCECTOMY LUMBAR FUSION 2010 L3-5 LUMBAR LAMINECTOMY MICRO LUMBAR DISCECTOMY L5-S1/ FORAMINOTOMY L5-S1 Left 01/14/2017 Performed by Corey Chacon MD at [facility] OOPHORECTOMY 1983 OTHER SURGICAL HISTORY Knee Arthroscopy With Medial Meniscus Repair OTHER SURGICAL HISTORY Spinal Diskectomy RADIO FREQUENCY ABLATION Left L 4/5, 5/1 Left 12/02/2018 Performed by Shubham Clifton MD at [facility] RADIO FREQUENCY ABLATION Left L 4/5, 5/1 Left 07/30/2017 Performed by Shubham Clifton MD at [facility] RADIO FREQUENCY ABLATION Left SI joint Left 03/31/2019 Performed by Shubham Clifton MD at [facility] RADIO FREQUENCY ABLATION Right L2/3, 3/4 Right 03/29/2020 Performed by Shubham Clifton MD at [facility] RADIOFREQUENCY ABLATION SPINAL Left Si joint Left 05/07/2017 Performed by Shubham Clifton MD at [facility] RADIOFREQUENCY ABLATION SPINAL Right C 4/5,/ Right 06/26/2022 Performed by Shubham Clifton MD at [facility] RADIOFREQUENCY ABLATION SPINAL RIGHT SI JOINT Right 05/21/2017 Performed by Shubham Clifton MD at [facility] RELEASE CARPAL TUNNEL Left 11/04/2021 Performed by Corey Chacon MD at [facility] SHOULDER SURGERY 2011 Right rotator [...] Resource Strain: Low Risk (04/02/2024) Re[facility] from [facility] Overall Financial Resource Strain (CARDIA) Difficulty of Paying Living Expenses: Not very hard Food Insecurity: No Food Insecurity (02/12/2025) Hunger Screening Food Insecurity - Worry: Never True Food Insecurity - Inability: Never True Transportation Needs: Unknown (04/02/2024) Received from [facility] PRAPARE - Transportation Lack of Transportation (Medical): Not on file Lack of Transportation (Non-Medical): No Physical Activity: Insufficiently Active (04/02/2024) Received from [facility] Exercise Vital Sign Days of Exercise per Week: 3 days Minutes of Exercise per Session: 10 min Stress: Stress Concern Present (04/02/2024) Received from [facility] [place] [employer] - Occupational Stress Questionnaire Feeling of Stress : Rather much Social Connections: Moderately Integrated (04/02/2024) Received from [facility] Social Connection and Isolation Panel [NHANES] Frequency of Communication with Friends and Family: More than three times a week Frequency of Social Gatherings with Friends and Family: More than three times a week Attends Anabaptist Services: More than 4 times per year Active Member of Clubs or Organizations: Yes Attends Club or Organization Meetings: More than 4 times per year Marital Status: Interpersonal Safety: Not on file Housing Instability: High Risk (04/02/2024) Received from [facility] Housing Stability Vital Sign Unable to Pay [...] 2 tablets (1,000 mg total) by mouth every6 (six) hours as needed for pain. albuterol (PROVENTIL HFA;VENTOLIN HFA) 90 mcg/actuation inhaler Inhale 2 puffs every 4 (four) hoursas needed for wheezing or shortness of breath. PRO AIR ascorbic acid (VITAMIN C) 500 mg tablet Take 2 tablets (1,000 mg total) by mouth in the morning. aspirin 81 mg Take 1 tablet (81 mg total) by mouth in the morning. annlsam-dncbjdayazcei-hcloxlsb (EXCEDRIN MIGRAINE) 250-250-65 mg per tablet Take [...] CUFF SIZE: M (9-13 inches)) Pulse 77 Ht157.5 cm (5' 2 ) Wt 67.5 kg [...] She continues to feel off-balance most of thetime. She fell in December. She is working with PT for her balance again. She saw Dr. 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 [facility]ref[facility] the [facility] for possible gamma knife intervention. The planis for her to have a repeat MRI [...] and the following intervention(s) were applied: encouragement toexercise. Angela has been screened for clinical depression [...] procedures Referring and communicating with other health direct support professional caregiver (not separately reported) Documenting clinical information in the electronic or other health record Independently interpreting results (not separately reported) and communicating results to the patient/family/caregiver Care coordination (not separately reported) - Yoanna Dorsey DNP, APRN-CNP 02/12/25 8:31 AM CHACE Rayo 02/12/25 0831 documented in this encounterOhio[facility]03-24-2025 Instructions* Patient Instructions* CHACE Rayo - 02/12/2025 8:00 AM EDT [...] office in 6 months, earlier if needed (ALEXXO is fine) documented in this encounterOhioHealth [facility]03-21-2025 Miscellaneous Notes* Telephone Encounter - Blanche Aviles CMA - 02/09/2025 10:11 AM EDT ----- Message from HAVEN Osullivan sent at 02/09/2025 8:21 AM EDT ----- Regarding: RE: re schedule appt Really any day is fine to reschedule except for Wednesday. ----- Message ----- From: Blanche Aviles CMA Sent: 02/09/2025 7:43 AM EDT To: [facility] Subject: re schedule appt Pt called and said that she needs to reschedule her appt for today and when someone calls she can explain when she needs it rescheduled for. Pt left a voicemail yesterday after hours. I can call and reschedule her if you let me know what's available. documented in this encounterOhioHealth [facility]03-21-2025 Telephone encounter Note* Telephone Encounter - Blanche Aviles CMA - 02/09/2025 10:11 AM EDT ----- Message from HAVEN Osullivan sent at 02/09/2025 8:21 AM EDT ----- Regarding: RE: re schedule appt Really any day is fine to reschedule except for Wednesday. ----- Message ----- From: Blanche Aviles CMA Sent: 02/09/2025 7:43 AM EDT To: [facility] Subject: re schedule appt Pt called and said that she needs to reschedule her appt for today and when someone calls she can explain when she needs it rescheduled for. Pt left a voicemail yesterday after hours. I can call and reschedule her if you let me know what's available. [facility]03-04-2025 History of Present illness Narrative* Bia Cao MD - 01/23/2025 4:20 PM EST Angela Ruth is a 79 y.o. female [...] 1953 APPENDECTOMY 1965 BREAST BIOPSY x4 - [id number] CHOLECYSTECTOMY 2002 EYE SURGERY 01/21/2023 retinal repair [facility] HEMANGIOMA EXCISION 1946 from upper back HYSTERECTOMY 1984 KNEE SURGERY Bilateral arthroscopic knee surgery x3 (Rx2, Lx1) ([id number]) LAPAROTOMY OOPHERECTOMY 1985 LUMBAR DISCECTOMY 1990 partial LUMBAR DISCECTOMY 01/14/2017 Microdiscetomy L5-S1 LUMBAR DISCECTOMY 07/03/2021 L1-2 partial discectomy, L1-2, L2-3 cleaning out of stenosis in the spinal canal DR. Edwards [facility] LUMBAR EPIDURAL INJECTION 12/20/2020 Dr Clifton [...] Depression - At risk (07/13/2024) Received from [facility] PHQ-2 Total Score: 3 REVIEW OF SYMPTOMS: [...] catch) Assessment & Plan documented in this encounterMadison Medical [id number] History of Present illness Narrative* Bia Cao MD - 01/15/2025 2:20 PM EST Images from the original note were not [...] has previously found relief from coughing with Tesjustaon Perles. Additionally, she has an albuterol inhaler [...] 1952 APPENDECTOMY 1965 BREAST BIOPSY x4 - [id number] CHOLECYSTECTOMY 2001 EYE SURGERY 01/21/2023 retinal repair [facility] HEMANGIOMA EXCISION 194 from upper back HYSTERECTOMY 1983 KNEE SURGERY Bilateral arthroscopic knee surgery x3 (Rx2, Lx1) ([id number]) LAPAROTOMY OOPHERECTOMY 1985 LUMBAR DISCECTOMY 1990 partial LUMBAR DISCECTOMY 01/14/2017 Microdiscetomy L5-S1 LUMBAR DISCECTOMY 07/03/2021 L1-2 partial discectomy, L1-2, L2-3 cleaning out of stenosis in the spinal canal DR. Edwards [facility] LUMBAR EPIDURAL INJECTION 12/20/2020 Dr Clifton RADIOFREQUENCY ABLATION 03/29/2020 lumbar ROTATOR CUFF REPAIR Right 2012 SPINAL FUSION 2010 L3-L5 TONSILLECTOMY 195 TRIGGER FINGER RELEASE Right 1995 release of Dequervan's tendon - R wrist TRIGGER FINGER RELEASE Right 05/16/2018 FAMILY HISTORY: Family History Problem Relation Name Age of Onset Hypertension Mother Chloe Beardrebekah Cancer Mother [place] Beardrebekah COPD Father Dre Beardrebekah Cancer Father Dre Keyur Arthritis Father Dre Beardrebekah Asthma Father Dre Keyur Stroke Paternal Grandfather Tra Keyur Diabetes Paternal Grandmother Sandra Baer Hearing loss Paternal Grandmother Sandra Baer Stroke Paternal Grandmother Sandra Baer Alcohol abuse Father's Brother Jesús Keyur Cancer Mother's Sister Jannette Nascimento Cancer Mother's [...] Depression - At risk (07/13/2024) Received from [facility] PHQ-2 Total Score: 3 REVIEW OF SYMPTOMS: [...] percent but not to a degree that necessitateshospitalization. A prescription for Tamiflu will be initiated. [...] up in 1 month. documented in this encounterMadison Medical [id number] History of Present illness Narrative* Emerita Borden RN - 01/11/2025 3:00 PM EST Patient does not have a current calcium completed Patient will have calcium done and will call to re-schedule documented in this encounterOhioHealth [facility]02-18-2025 History of Present illness Narrative* Katerin Alvarado MD - 01/09/2025 1:40 PM EST Images from the original note were not included. Subjective Patient ID: Angela Ruth is a 79 y.o. female who presents for Hoarseness Pt reports a many year h/o trouble with her voice. 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 Tx with speech tx at the time. I tx for LPRD in 2019 and pt stillfollowing reflux regimen Review of Systems All other systems reviewed and are negative. Family History Problem Relation Name Age of Onset Hypertension Mother Chloe Baer Cancer Mother Chloe Baer COPD Father Dre Baer Cancer Father Dre Baer Arthritis Father Dre Baer Asthma Father Dre Baer Stroke Paternal Grandfather Tra Keyur Diabetes Paternal [...] Recurrent falls 11/01/2017 Other specified depressive episodes ([facility]) 02/12/2017 Nocturnal leg cramps 06/04/2023 Mixed stress and urge urinary incontinence 10/29/2020 Major depressive disorder, single episode, in full remission ([facility]) 10/24/2019 Hyperlipidemia ([facility]) 11/08/2015 History of lumbar fusion 12/11/2015 History of depression 2018 Gastroesophageal reflux disease without esophagitis 09/15/2021 Herniation of lumbar intervertebral disc with radiculopathy 01/07/2017 Essential tremor 12/12/2018 Essential hypertension ([facility]) 03/13/2013 Degeneration of lumbosacral intervertebral disc 08/14/2016 Chronic idiopathic constipation 07/10/2019 Bilateral occipital neuralgia 03/02/2019 Asthma ([facility]) 03/26/2016 Age-related osteoporosis without current pathological fracture ([facility]) 06/04/2023 Acquired hypothyroidism ([facility]) 09/29/2019 1st degree AV block 06/10/2021 Bilateral nephrolithiasis 03/02/2023 Stage 3b chronic kidney disease (CKD) ([facility]) 06/04/2023 History of falling 11/04/2023 Lung nodule 02/15/2024 Brain lesion 02/15/2024 Balance problem 06/12/2019 Impingement syndrome of right shoulder 08/14/2011 Resolved Ambulatory Problems Diagnosis Date Noted Adjustment disorder with anxiety ([facility]) 05/04/2023 Migraine without status migrainosus, not intractable ([facility]) 06/04/2023 Lumbago with sciatica, right side 06/04/2023 Disc displacement, lumbar 05/05/2019 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 01/14/2017 Cervical spondylosis without myelopathy 04/01/2022 Age related osteoporosis ([facility]) 12/19/2019 Past Medical History: Diagnosis Date Allergic [...] 195 APPENDECTOMY 1965 BREAST BIOPSY x4 - [phone] CHOLECYSTECTOMY 2002 EYE SURGERY 01/21/2023 retinal repair [facility] HEMANGIOMA EXCISION 1946 from upper back HYSTERECTOMY 1984 KNEE SURGERY Bilateral arthroscopic knee surgery x3 (Rx2, Lx1) ([id number]) LAPAROTOMY OOPHERECTOMY 1985 LUMBAR DISCECTOMY 1989 partial LUMBAR DISCECTOMY 01/14/2017 Microdiscetomy L5-S1 LUMBAR DISCECTOMY 07/03/2021 L1-2 partial discectomy, L1-2, L2-3 cleaning out of stenosis in the spinal canal DR. Edwards [facility] LUMBAR EPIDURAL INJECTION 12/20/2020 Dr Clifton [...] will refer pt to heavenly nevarez at [facility] for tx. Consider laryngology referral for TVF augmentation if no help [facility] History of Present illness Narrative* Faiza Evans MA - 01/01/2025 2:30 PM EST Patient here for UA Dip. Dip added to chart and sent for culture [facility] Telephone encounter Note* Telephone Encounter - Tae Hardy NP - 01/01/2025 12:22 PM EST Are you able to have her come in and give us a specimen in the office for a nurse visit? We can storm test in the office during the nurse visit and send for culture and sensitivity if needed but we will need her to get the specimen while in the office during the nurse visit. [facility] [id number] Miscellaneous Notes* Telephone Encounter - Tae Hardy NP - 01/01/2025 12:22 PM EST Are you able to have her come in and give us a specimen in the office for a nurse visit? We can storm test in the office during the nurse visit and send for culture and sensitivity if needed but we will need her to get the specimen while in the office during the nurse visit. * Telephone Encounter - Tamela Meredith - 01/01/2025 11:02 AM EST Pt is having symptoms of a UTI again. She was on generic Macrobid last month (12/11/24) and she saidit helped. She was wondering if she could just bring in her urine again. Her symptoms are: Cloudy urine, painful urination, burning I also sent a message through teams, but sent this also, just to be safe :) I told pt I'll call her back and let her know :) documented in this encounterMadison Medical [id number] Telephone encounter Note* Telephone Encounter - Tamela Meredith - 01/01/2025 11:02 AM EST Pt is having symptoms of a UTI again. She was on generic Macrobid last month (12/11/24) and she saidit helped. She was wondering if she could just bring in her urine again. Her symptoms are: Cloudy urine, painful urination, burning I also sent a message through teams, but sent this also, just to be safe :) I told pt I'll call her back and let her know :) [facility] [id number] History of Present illness Narrative* Alyce Marrero MA - 12/26/2024 9:20 AM EST Images from the original note were not included. Angela Ruth is a 79 y.o. female presents with chief complaint of Fall and ER Follow-up HPI: Patient presents to the office for an ER follow up for a fall that happened on Wednesday. She threw something away, turned around in the kitchen and then fell onto her right side. She did hit her headduring the fall but denies any LOC. Reports she is sore but is feeling better than a couple days ago.Has been taking Tylenol and Aleve OTC at home with some relief. Feels like she has been more depressed recently. She is on Lexapro 20mg but reports she has been onthat for at least 20 years and feels like it is not doing anything for her. Would like to change her medication. Has been having issues with insomnia. She will fall asleep for a couple hours then wake up and havea hard time falling back asleep. She is on Amitriptyline 50mg nightly. Would like to increase the dose or change medication. Reports having a hoarse voice intermittently for the past couple months. Was seen in July for the same issue. She does report some nasal drainage, has been taking flonase but is still having thehoarse voice intermittently. Would like a referral to [...] Flowsheet Row Office Visit from 12/26/2024 in [facility] with Bia Cao MD Hospital Information ED, Hospital or Detention Facility Discharge? ED Patient has been contacted within 1 week of being seen in the ED Yes Diagnosis Fall Discharge Date 12/23/24 Discharged To: Home Setting Discharge Hospital [facility] Engagement Call Start Time 925 [...] 1953 APPENDECTOMY 1965 BREAST BIOPSY x4 - [phone] CHOLECYSTECTOMY 2002 EYE SURGERY 01/21/2023 retinal repair [facility] HEMANGIOMA EXCISION 1946 from upper back HYSTERECTOMY 1984 KNEE SURGERY Bilateral arthroscopic knee surgery x3 (Rx2, Lx1) ([id number]) LAPAROTOMY OOPHERECTOMY 1985 LUMBAR DISCECTOMY 1989 partial LUMBAR DISCECTOMY 01/14/2017 Microdiscetomy L5-S1 LUMBAR DISCECTOMY 07/03/2021 L1-2 partial discectomy, L1-2, L2-3 cleaning out of stenosis in the spinal canal DR. Edwards [facility] LUMBAR EPIDURAL INJECTION 12/20/2020 Dr Clifton [...] Depression - At risk (07/13/2024) Received from [facility] PHQ-2 Total Score: 3 REVIEW OF SYMPTOMS: [...] depressive disorder, single episode, in full remission ([facility]) Relevant Medications mirtazapine (Remeron) 15 MG tablet [...] for Medication change (Remeron) documented in this encounterMadison Medical [id number] Telephone encounter Note* Telephone Encounter - Flora Garcia - 12/25/2024 11:54 AM EST Sorjaspal I forgot to add I scheduled her an appt. [facility] [id number] Miscellaneous Notes* Telephone Encounter - Flora Garcia - 12/25/2024 11:54 AM EST Sorjaspal I forgot to add I scheduled her an appt. * Telephone Encounter - Bia Cao MD - 12/25/2024 11:48 AM EST Please call to check on her * Telephone Encounter - Flora Garcia - 12/25/2024 11:35 AM EST This is Angela Ruth. My phone number is [phone] for I am calling to let Dr Sutherland know that I fell on Wednesday night and was seen in, ER. Thank you very much, maría. documented in this encounterNOCarondelet [id number] Telephone encounter Note* Telephone Encounter - Bia Cao MD - 12/25/2024 11:48 AM EST Please call to check on her [facility] [id number] Telephone encounter Note* Telephone Encounter - Flora Garcia - 12/25/2024 11:35 AM EST This is Angela Ruth. My phone number is [phone] for I am calling to let Dr Sutherland know that I fell on Wednesday night and was seen in, ER. Thank you very much, maría. [facility] [id number] History of Present illness Narrative* Maria C Kramer MD - 12/19/2024 12:45 PM EST Images from the original note were not included. [address] [place] [address] [facility] [address] [facility] [id number] Patient: Angela Ruth Date of : 1945 Encounter Date: 12/19/2024 History of Present Illness: Chief Complaint: urge incontience The patient is a 79 y.o. female, an established patient, and is here for followup. She has had progressive issues with urinary urge incontinence over the past 8-9 months. Been treated with oxybutyninextended release 10 mg. That did help some. [...] consumption. She had been working on her constipationbut found that MiraLax is causing diarrhea. Even [...] , EXTPOCUBAC , EXTPOCUTREP , EXTPOCUPH , EXTPOCUL EE in the last 72 hours. Last BUN [...] past medical history, past social history, past surgicalhistory and problem list. Past Medical History: Diagnosis [...] Performed by Alexander Leach MD at [facility] ENDOSCOPY COSMETIC SURGERY 1984 DISCECTOMY 1989 Partial L4-5 EGD 2001 EYE SURGERY 2015 FOOT SURGERY 2009 Reattachment of tendon left foot with bone graft HIP SURGERY 2003 Excision of bursa left hip HYSTERECTOMY 1984 INJECTION BLOCK EPIDURAL STEROID LUMBAR/SACRAL Left L 5,1 NR Left 12/20/2020 Performed by Shubham Clifton MD at [facility] BLOCK NERVE MEDIAL BRANCH right C 4/5,5/6 Right 05/22/2022 Performed by Shubham Clifton MD at [facility] BLOCK NERVE MEDIAL BRANCH right C 4/5,5/6 Right 04/17/2022 Performed by Shubham Clifton MD at [facility] CAUDAL EPIDURAL WITH CATHETER, STEROID N/A 03/07/2018 Performed by Shubham Clifton MD at [facility] LARGE JOINT BURSA: bilat hip Bilateral 12/10/2017 Performed by Shubham Clifton MD at [facility] MEDIAL BRANCH NERVE BLOCK Bilateral L 4/5, 5/1 Bilateral 06/28/2017 Performed by Shubham Clifton MD at [facility] MEDIAL BRANCH NERVE BLOCK Right L 2/3, 3/4 Right 12/08/2019 Performed by Shubham Clifton MD at [facility] MEDIAL BRANCH NERVE BLOCK RIGHT L23 34 Right 01/19/2020 Performed by Shubham Clifton MD at [facility] SI JOINT Bilateral 04/09/2017 Performed by Shubham Clifton MD at [facility] SI JOINT Bilateral SI Joint Bilateral 05/31/2020 Performed by Shubham Clifton MD at [facility] SI JOINT Left SI JOint Left 01/06/2019 Performed by Shubham Clifton MD at [facility] SI JOINT Right SI Joint Right 06/09/2019 Performed by Shubham Clifton MD at [facility] SPINE TRANSFORAMINAL Left L 4, 5 NR Left 09/24/2017 Performed by Shubham Clifton MD at [facility] INJECTION SPINE TRANSFORAMINAL Left L 5,1 Nroot Left 01/08/2023 Performed by Shuhbam Clifton MD at [facility] INJECTION SPINE TRANSFORAMINAL Right L 5,1 Nroot Right 11/27/2022 Performed by Shubham Clifton MD at [facility] STEROID EPI 1 WITH SEDATION Left 5,1 NR Left 05/08/2019 Performed by Shubham Clifton MD at [facility] KNEE ARTHROSCOPY 2010, 2013 KNEE SURGERY 2010 2013 Arthroscopy bilateral/repair meniscus right X2, left X1 LAMINECTOMY LUMBAR FORAMENOTOMY MULTI LEVEL L1-2 RIGHT/L2-3 BILATERAL/LUMBAR DRAIN INSERTION N/A 07/03/2021 Performed by Corey Chacon MD at [facility] LAPAROTOMY OOPHERECTOMY Bilateral 1984 LUMBAR DISCECTOMY LUMBAR FUSION 2010 L3-5 LUMBAR LAMINECTOMY MICRO LUMBAR DISCECTOMY L5-S1/ FORAMINOTOMY L5-S1 Left 01/14/2017 Performed by Corey Chacon MD at [facility] OOPHORECTOMY 1982 OTHER SURGICAL HISTORY Knee Arthroscopy With Medial Meniscus Repair OTHER SURGICAL HISTORY Spinal Diskectomy RADIO FREQUENCY ABLATION Left L 4/5, 5/1 Left 12/02/2018 Performed by Shubham Clifton MD at [facility] RADIO FREQUENCY ABLATION Left L 4/5, 5/ Left 07/30/2017 Performed by Shubham Clifton MD at [facility] RADIO FREQUENCY ABLATION Left SI joint Left 03/31/2019 Performed by Shubham Clifton MD at [facility] RADIO FREQUENCY ABLATION Right L2/3, 3/4 Right 03/29/2020 Performed by Shubham Clifton MD at [facility] RADIOFREQUENCY ABLATION SPINAL Left Si joint Left 05/07/2017 Performed by Shubham Clifton MD at [facility] RADIOFREQUENCY ABLATION SPINAL Right C 4/5,5/6 Right 06/26/2022 Performed by Shubham Clifton MD at [facility] RADIOFREQUENCY ABLATION SPINAL RIGHT SI JOINT Right 05/21/2017 Performed by Shubham Clifton MD at [facility] RELEASE CARPAL TUNNEL Left 11/04/2021 Performed by Corey Chacon MD at [facility] SHOULDER SURGERY 2011 Right rotator [...] 2 tablets (1,000 mg total) by mouth every6 (six) hours as needed for pain. albuterol (PROVENTIL HFA;VENTOLIN HFA) 90 mcg/actuation inhaler Inhale 2 puffs every 4 (four) hoursas needed for wheezing or shortness of breath. [...] mg total) by mouth in the morning. zwiaicr-kwrtcjzamoyqd-meojmtsg (EXCEDRIN MIGRAINE) 250-250-65 mg per tablet Take [...] [indomethacin], Lincocin [lincomycin], Lincosamides, Adhesive, Eggshell membrane, Influenzavirus vaccines, Sulfa (sulfonamide antibiotics), Other, Poultry, Sulfamethoxazole-trimethoprim, Aspartame, Augmentin [amoxicillin-pot clavulanate], Clavulanic acid, Clemizole, Daypro [oxaprozin], andPenicillins Tobacco History: Social History Tobacco Use Smoking [...] caffeine as well as addressing constipation with rcuy-nvz-ihbmkga agents. If no improvement can add beta [...] you for your understanding. documented in this [facility]01-21-2025 Telephone encounter Note* Telephone Encounter - Bia Cao MD - 12/12/2024 3:29 PM EST Approvals with refills [facility] [id number] Miscellaneous Notes* Telephone Encounter - Bia Cao MD - 12/12/2024 3:29 PM EST Approvals with refills [facility] History of Present illness Narrative* Bia Cao MD - 12/08/2024 11:40 AM EST Images from the original note were not [...] exceeding 5 years. Her most recent DEXA scanrevealed progression from osteopenia to osteoporosis. She also [...] being cloudy and others clear. A urine samplewill be collected today for further analysis. She [...] the skin lesions today. documented in this encounterMadison Medical [id number] History of Present illness Narrative* John Johnson MD - 12/06/2024 11:45 AM EST Reason for Visit: Angela Ruth is a [...] vertigo) Brain tumor (benign) ([facility]) Breast disorder 4 biopsies Bronchitis 01/01/2017 Cancer ([facility]) Basal cell Carpal tunnel syndrome Cataract Chronic [...] Performed by Alexander Leach MD at [facility] ENDOSCOPY COSMETIC SURGERY 1984 DISCECTOMY 1989 Partial L4-5 EGD 2001 EYE SURGERY 2014 FOOT SURGERY 2009 Reattachment of tendon left foot with bone graft HIP SURGERY 2003 Excision of bursa left hip HYSTERECTOMY 1983 INJECTION BLOCK EPIDURAL STEROID LUMBAR/SACRAL Left L 5,1 NR Left 12/20/2020 Performed by Shubham Clifton MD at [facility] BLOCK NERVE MEDIAL BRANCH right C 4/5,5/6 Right 05/22/2022 Performed by Shubham Clifton MD at [facility] BLOCK NERVE MEDIAL BRANCH right C 4/5,5/6 Right 04/17/2022 Performed by Shubham Clifton MD at [facility] CAUDAL EPIDURAL WITH CATHETER, STEROID N/A 03/07/2018 Performed by Shubham Clifton MD at [facility] LARGE JOINT BURSA: bilat hip Bilateral 12/10/2017 Performed by Shubham Clifton MD at [facility] INJECTION MEDIAL BRANCH NERVE BLOCK Bilateral L 4/5, 5/1 Bilateral 06/28/2017 Performed by Shubham Clifton MD at [facility] MEDIAL BRANCH NERVE BLOCK Right L 2/3, 3/4 Right 12/08/2019 Performed by Shubham Clifton MD at [facility] MEDIAL BRANCH NERVE BLOCK RIGHT L23 34 Right 01/19/2020 Performed by Shubham Clifton MD at [facility] SI JOINT Bilateral 04/09/2017 Performed by Shubham Clifton MD at [facility] SI JOINT Bilateral SI Joint Bilateral 05/31/2020 Performed by Shubham Clifton MD at [facility] SI JOINT Left SI JOint Left 01/06/2019 Performed by Shubham Clifton MD at [facility] SI JOINT Right SI Joint Right 06/09/2019 Performed by Shubham Clifton MD at [facility] Left L 4, 5 NR Left 09/24/2017 Performed by Shubham Clifton MD at [facility] Left L 5,1 Nroot Left 01/08/2023 Performed by Shubham Clifton MD at [facility] Right L 5,1 Nroot Right 11/27/2022 Performed by Shubham Clifton MD at [facility] INJECTION STEROID EPI 1 WITH SEDATION Left 5,1 NR Left 05/08/2019 Performed by Shubham Clifton MD at [facility] KNEE ARTHROSCOPY 2010, 2013 KNEE SURGERY 2010 2013 Arthroscopy bilateral/repair meniscus right X2, left X1 LAMINECTOMY LUMBAR FORAMENOTOMY MULTI LEVEL L1-2 RIGHT/L2-3 BILATERAL/LUMBAR DRAIN INSERTION N/A 07/03/2021 Performed by Corey Chacon MD at [facility] LAPAROTOMY OOPHERECTOMY Bilateral 1984 LUMBAR DISCECTOMY LUMBAR FUSION 2009 L3-5 LUMBAR LAMINECTOMY MICRO LUMBAR DISCECTOMY L5-S1/ FORAMINOTOMY L5-S1 Left 01/14/2017 Performed by Corey Chacon MD at [facility] OOPHORECTOMY 1982 OTHER SURGICAL HISTORY Knee Arthroscopy With Medial Meniscus Repair OTHER SURGICAL HISTORY Spinal Diskectomy RADIO FREQUENCY ABLATION Left L 4/5, 5/1 Left 12/02/2018 Performed by Shubham Clifton MD at [facility] RADIO FREQUENCY ABLATION Left L 4/5, 5/1 Left 07/30/2017 Performed by Shubham Clifton MD at [facility] RADIO FREQUENCY ABLATION Left SI joint Left 03/31/2019 Performed by Shubham Clifton MD at [facility] RADIO FREQUENCY ABLATION Right L2/3, 3/4 Right 03/29/2020 Performed by Shubham Clifton MD at [facility] RADIOFREQUENCY ABLATION SPINAL Left Si joint Left 05/07/2017 Performed by Shubham Clifton MD at [facility] RADIOFREQUENCY ABLATION SPINAL Right C 4/5,5/6 Right 06/26/2022 Performed by Shubham Clifton MD at [facility] RADIOFREQUENCY ABLATION SPINAL RIGHT SI JOINT Right 05/21/2017 Performed by Shubham Clifton MD at [facility] RELEASE CARPAL TUNNEL Left 11/04/2021 Performed by Corey Chacon MD at [facility] SHOULDER SURGERY 2011 Right rotator [...] mouth in the morning., Disp: , Rfl: rfrgyif-mwcvesbnjrmss-aemumybx (EXCEDRIN MIGRAINE) 250-250-65 mg per tablet, Take 1 tablet by mouthevery 6 (six) hours as needed for headaches., [...] meals. TAKE 1 TABLET BY MOUTH EVERY MORNINGAND 1 TABLET EVERY EVENING WITH MEALS., Disp: [...] arrange once she starts Evenity she will stoptaking the alendronate she was been on alendronate/Fosamax [...] months with doctor John Johnson MD, MPH, [facility] [address] [address] Dept: [phone] FAX: [phone] documented in this encounterOhio[facility] Telephone encounter Note* Telephone Encounter - Bia Cao MD - 11/29/2024 3:27 PM EST [id number] Miscellaneous Notes* Telephone Encounter - Bia Cao MD - 11/29/2024 3:27 PM EST Approvals with refills documented in this encounterMadison Medical [id number] Telephone encounter Note* Telephone Encounter - Bia Cao MD - 11/06/2024 2:55 PM EST Approvals with refills [facility] [id number] Miscellaneous Notes* Telephone Encounter - Bia Cao MD - 11/06/2024 2:55 PM EST Approvals with refills documented in this encounterMadison Medical [id number] History of Present illness Narrative* Santo Anna Christianson, DPM - 10/30/2024 1:45 PM EST Images from the original note were not [...] on an empty stomach Orally Wed, skip Naif, Disp: , Rfl: lisinopril-hydroCHLOROthiazide 20-12.5 MG tablet, Take 1 tablet by mouth in the morning., Disp: 100tablet, Rfl: 3 MAGNESIUM PO, Take 500 mg [...] tablet by mouth once daily, Disp: 90 tablet,Rfl: 3 zafirlukast (Accolate) 20 MG tablet, Take 1 tablet (20 mg) by mouth in the morning and 1 tablet (20mg) before bedtime., Disp: 180 tablet, Rfl: 3 albuterol HFA 90 mcg/act inhaler, Inhale 2 puffs every 4 (four) hours., Disp: 18 g, Rfl: 11 rrhusxiwig-gofzpuwlvxxql-sgxomfdu 50-325-40 MG tablet, Take 1 tablet by [...] 3 APPENDECTOMY 1965 BREAST BIOPSY x4 - [id number] CHOLECYSTECTOMY 2002 EYE SURGERY 01/21/2023 retinal repair [facility] HEMANGIOMA EXCISION 1946 from upper back HYSTERECTOMY 1984 KNEE SURGERY Bilateral arthroscopic knee surgery x3 (Rx2, Lx1) ([id number]) LAPAROTOMY OOPHERECTOMY 1985 LUMBAR DISCECTOMY 1989 partial LUMBAR DISCECTOMY 01/14/2017 Microdiscetomy L5-S1 LUMBAR DISCECTOMY 07/03/2021 L1-2 partial discectomy, L1-2, L2-3 cleaning out of stenosis in the spinal canal DR. Edwards [facility] LUMBAR EPIDURAL INJECTION 12/20/2020 Dr Clifton [...] Varying degrees of toenail dystrophy, elongation, brittleness, discoloration,pincer deformity, periungual hyperkeratotic debris, without drainage. INTERDIGITAL [...] of any cryptotic margins, all periungual debris; providingeffective symptom and pressure relief; reducing shoe and [...] understanding. Santo Christianson DPM [facility] Instructions* Patient Instructions* Santo Christianson DPM - 10/30/2024 1:45 PM EST As noted [facility] Telephone encounter Note* Telephone Encounter - Rose Velasquez APRN.CNP - 10/06/2024 10:07 AM EST Voicemail left for Angela at [phone]. Call back number given. 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 My note was forward to Dr. Hoover for review. At this time we recommend follow up and new imaging in 1 year. Rose Velasquez MSN, [employer]ATHER GOODS ASSEMBLER, WIRE MILL OPERATOR Certified Nurse Practitioner [facility] Work Phone: [phone] Miscellaneous Notes* Telephone Encounter - Rose Velasquez APRN.CNP - 10/06/2024 10:07 AM EST Voicemail left for Angela at [phone]. Call back number given. 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 My note was forward to Dr. Hoover for review. At this time we recommend follow up and new imaging in 1 year. Rsoe Velasquez MSN, [employer]ATHER GOODS ASSEMBLER, WIRE MILL OPERATOR Certified Nurse Practitioner * Telephone Encounter - Jessica Ashley - 10/04/2024 3:18 PM EST General Call Caller : Angela Contact Reason for Call : Did you speak with Dr. Hoover regarding her most recent appt? Patient requesting return call ? Yes documented in this encounterAkron [facility]11-13-2024 Telephone encounter Note * Telephone Encounter - Keenan Heart Jessica - 10/04/2024 3:18 PM EST General Call Caller : Angela Contact Reason for Call : Did you speak with Dr. Hoover regarding her most recent appt? Patient requesting return call ? Yes [facility]11-05-2024 NoteHNO ID: [id number] Author: ROSE VELASQUEZ APRN.WIRE MILL OPERATOR Service: ? Author Type: Nurse Practitioner Type: Progress Notes Filed: 09/26/2024 15:27 Note Text: [facility] BRAIN TUMOR CENTER NEURO-ONCOLOGY OUTPATIENT [...] 20 mg capsule 20 mg once daily. ztvucjrfugrci-fpqayfnyazxryjjjni-dsgjhvtywirfj (MIDRIN) 65-100-325 mg per capsule 1 capsule [...] head side to side (more content not included)...[facility]11-05-2024 History of Present illness Narrative* Rose Velasquez APRN.WIRE MILL OPERATOR - 09/26/2024 1:42 PM EST Images from the original note were not included. [facility] [place] [facility]UMOR C[facility] NEURO-ONCOLOGY OUTPATIENT CLINIC NOTE [...] 20 mg capsule 20 mg once daily. dqnohiqbttfqi-dyqhvbpmrqdncfqcvp-xteuozfxgvikx (MIDRIN) 65-100-325 mg per capsule 1 capsule [...] in the A.M and 200 at bedtime (Patientnot taking: Reported on 04/04/2024) No current facility-administered [...] DATE OF EXAM: Sep 26 2024 12:29PM [facility] 0295 - MRI BRAIN WO/W IVCON [...] petrous ridge presumed meningioma compared to 03/02/2024. Valet Attendant: ALLYSSA Transcribe Date/Time: Sep 26 2024 [...] - All questions were answered. Rose Velasquez APRN.MAHENDRA Certified Nurse Practitioner cc: Mandi Hoover MD - Epic documented in this encounterAkron [facility]11-05-2024 History of Present illness Narrative* Jessica Howell RN - 09/26/2024 11:20 AM EST Radiology Service Progress Note DATE OF SERVICE: [...] Cane, Wheelchair, Crutches, etc.)? Yes, Patient High Riskfor Falls What interventions were put in place to prevent falls during this visit? Instructed Patient to Callfor Help if Needed and Offered Assistance with [...] 2024 TIME: 11:27 AM documented in this encounterAkron Children'[facility] Hospital11-05-2024 NoteHNO ID: [id number] Author: JESSICA HOWELL RN Service: Nursing Author [...] Ruth DATE: September 26, 2024 TIME: 11:27 [facility]09-23-2024 History of Present illness Narrative* Bia Cao MD - 08/14/2024 4:00 PM EDT Images from the original note were not [...] been beneficial for her in the past. [place] not currently have an esthetician. SUBJECTIVE: MEDICATIONS: Current Outpatient Medications Medication Instructions albuterol HFA 90 mcg/act inhaler 2 puffs, Inhalation, Every 4 hours alendronate (FOSAMAX) 70 mg, Oral, Every 7 days amitriptyline (ELAVIL) 50 mg, Oral, Nightly Ascorbic Acid (vitamin C) 1000 MG tablet Every 24 hours aspirin 81 mg, Oral, Daily RT atorvastatin (LIPITOR) 40 mg, Oral, Daily buprenorphine (Butrans) 7.5 MCG/HR 1 patch, Transdermal, Weekly ntebpqmqvi-uktfuahzahsqu-otfeeswk 50-325-40 MG tablet 1 tablet, Oral, Every [...] provided. She does not currently have an esthetician but is open to seeing one. A COVID-19 test was conducted today, which returned negative. She is advised to stay hydrated. If her condition deteriorates, a repeat COVID-19 test will be necessary. documented in this encounterMadison Medical [id number] History of Present illness Narrative* Bia Cao MD - 08/08/2024 11:40 AM EDT Angela Ruth is a 79 y.o. female [...] (Butrans) 7.5 MCG/HR 1 patch, Transdermal, Weekly finlhwqncs-ueljkckgueekh-havlxpcz 50-325-40 MG tablet 1 tablet, Oral, Every [...] 1953 APPENDECTOMY 1965 BREAST BIOPSY x4 - [id number] CHOLECYSTECTOMY 2002 EYE SURGERY 01/21/2023 retinal repair [facility] HEMANGIOMA EXCISION 1946 from upper back HYSTERECTOMY 1984 KNEE SURGERY Bilateral arthroscopic knee surgery x3 (Rx2, Lx1) ([id number]) LAPAROTOMY OOPHERECTOMY 1984 LUMBAR DISCECTOMY 1989 partial LUMBAR DISCECTOMY 01/14/2017 Microdiscetomy L5-S1 LUMBAR DISCECTOMY 07/03/2021 L1-2 partial discectomy, L1-2, L2-3 cleaning out of stenosis in the spinal canal DR. Edwards [facility] LUMBAR EPIDURAL INJECTION 12/20/2020 Dr Clifton [...] Never Depression: At risk (07/13/2024) Received from [facility] PHQ-2 Total Score: 3 REVIEW OF SYMPTOMS: [...] 25 mg were renewed and sent to [facility] pharmacy. Follow-up The patient will follow up in 4 months. documented in this encounterMadison Medical CenterNulsucrjxo06-09-1206 History of Present illness Narrative* Bia Cao MD - 07/10/2024 3:40 PM EDT Angela Ruth is a 79 y.o. female [...] and two to three glasses of unsweetened icedtea daily. She does not consume acidic foods such as tomatoes or lemonade. She has not previously tried MiraLAX. She consulted with Dr. Romano, a urologist in [place], some time ago but has not soughturological advice recently. She does not report any [...] (Butrans) 7.5 MCG/HR 1 patch, Transdermal, Weekly frndopewim-uedoaphjqtnmx-syffqgdh 50-325-40 MG tablet 1 tablet, Oral, Every [...] 1953 APPENDECTOMY 1965 BREAST BIOPSY x4 - [id number] CHOLECYSTECTOMY 2002 EYE SURGERY 01/21/2023 retinal repair [facility] HEMANGIOMA EXCISION 1946 from upper back HYSTERECTOMY 1984 KNEE SURGERY Bilateral arthroscopic knee surgery x3 (Rx2, Lx1) ([id number]) LAPAROTOMY OOPHERECTOMY 1984 LUMBAR DISCECTOMY 1990 partial LUMBAR DISCECTOMY 01/14/2017 Microdiscetomy L5-S1 LUMBAR DISCECTOMY 07/03/2021 L1-2 partial discectomy, L1-2, L2-3 cleaning out of stenosis in the spinal canal DR. Edwards [facility] LUMBAR EPIDURAL INJECTION 12/20/2020 Dr Clifton [...] Depression: Not at risk (03/10/2024) Received from [facility], [facility] PHQ-2 Total Score: 0 REVIEW OF SYMPTOMS: [...] that will dissolve in any preferred drink. Sheis advised to see if having a bowel [...] increased from 35 mg. This treatment will becontinued as prescribed by Dr. Márquez documented in this encounterMadison Medical [id number] Instructions* Patient Instructions* Anson Ennis MD - 04/04/2024 12:35 PM EDT - obtain follow up MRI brain wwo in 6 months - please follow up with your drier tender (we do not think the etiology of your hearing loss is due to your meningioma) - our team will notify Dr. Bia Cao regarding these findings; we recommend investigating other etiologies of imbalance in Mrs. Ruth documented in this encounterAkron Children'[facility] Hospital05-14-2024 Nurse Note* Josette Sheppard MA - 04/04/2024 11:29 AM EDT Additional intake questions: Has the patient had fever, nausea, vomiting, diarrhea, constipation, fatigue for > 1 week? No Does the patient have a decreased appetite? No Does patient want to see a Pot Reliner? No (yes to any of above refer patient to schedulers for dietitian appointment) ) Does patient have any new or increased numbness or tingling of extremities? No Is patient interested in fertility information? No Does patient need any prescription refills? No Does patient have an advanced directive in place? Yes, no copy found in [facility] Patient referred to [facility] Electronically Signed By: Josette Sheppard MA [facility]05-14-2024 Nurse Note* Josette Sheppard MA - 04/04/2024 11:29 AM EDT Additional intake questions: Has the patient had fever, nausea, vomiting, diarrhea, constipation, fatigue for > 1 week? No Does the patient have a decreased appetite? No Does patient want to see a Pot Reliner? No (yes to any of above refer patient to schedulers for dietitian appointment) ) Does patient have any new or increased numbness or tingling of extremities? No Is patient interested in fertility information? No Does patient need any prescription refills? No Does patient have an advanced directive in place? Yes, no copy found in [facility] Patient referred to [facility] Electronically Signed By: Josette Sheppard MA documented in this encounterAkron Children'S Hospital05-14-2024 History of Present illness Narrative* Mandi Hoover MD - 04/04/2024 10:30 AM EDT Images from the original note were not included. SECTION OF SKULL BASE SURGERY MINIMALLY INVASIVE CRANIAL BASE & PITUITARY SURGERY PROGRAM Jessica Car[facility] [place] CC: Patient Care Team: Bia Cao as PCP ([facility]) Corey Chacon MD as NI Referring Team [...] Her lesion does not arise from any ofthe cranial nerves and instead seems to be arising from the right posterior petrous ridge. 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 The natural history and treatment options for meningiomas (including obse rvation, radiotherapy, radiosurgery, and surgery) were reviewed in [...] our skull base team advance practice providers ([place] preference). - follow up with drier tender for hearing loss which is unrelated to this tumor - follow up with Dr. Cao to investigate other etiologies of imbalance. We contacted Dr. Cao viatelephone with our recommendations. Anson Ennis MD PGY-3, [...] Patient is accompanied by her granddaughter (her local truck driver) and great grand daughter). The [...] contrast and shows a 1.2 cm R TEST EQUIPMENT MECHANIC contrast-enhancing lesion concerning for either schwannoma or meningioma- no associated mass effect or edema. The patient takes ASA 81 mg daily for cardioprotection per her PCP. The patient has been using a cane for the last 5-6 years. The patient reports that ~6 weeks ago, she walked into her garage door and fell. The patient has not seen an drier tender or a vestibular therapist. Past Medical History: [...] 20 mg capsule 20 mg once daily. jlqjtvpignruq-ofxdbcaretiserygqj-bdidnyfxdqejk (MIDRIN) 65-100-325 mg per capsule 1 capsule [...] contrast and shows a 1.2 cm R TEST EQUIPMENT MECHANIC contrast-enhancing lesion extra-axial mass arising from the right posterior petrous ridge with no significant mass effect and not abutting the right vestibular cochlear complex. documented in this encounterAkron Children'S Hospital05-14-2024 NoteHNO ID: [id number] Author: MANDI HOOVER MD Service: ? Author Type: Physician Type: Progress Notes Filed: 04/05/2024 17:50 Note Text: SECTION OF SKULL BASE SURGERY MINIMALLY INVASIVE CRANIAL BASE AND PITUITARY SURGERY PROGRAM Jessica Car[facility] [place] CC: Patient Care Team: Bia Cao as PCP ([facility]) Corey Chacon MD as NI Referring Team [...] 6 months with a repeat MRI scan ([place] preference) and clinic visit with one of our skull base team advance practice providers ([place] preference). - follow up with drier tender for hearing loss which is unrelated to [...] Patient is accompanied by her granddaughter (her local truck driver) and great grand daughter). The [...] contrast and shows a 1.2 cm R TEST EQUIPMENT MECHANIC contrast-enhancing lesion concerning for either schwannoma or meningioma- no associated mass effect or edema. The patient takes ASA 81 mg daily for cardioprotection per her PCP. The patient has been using a cane for the last 5-6 years. The patient reports that ~6 weeks ago, she walked into her garage door and fell. The patient has not seen an drier tender or a vestibular therapist. Past Medical History: [...] mg (VYTORIN) 10-40 (more content not included)... [facility]05-07-2024 Telephone encounter Note* Telephone Encounter - Etelvina Trujillo - 03/28/2024 10:11 AM EDT Called patient to schedule an appointment. No ans/left message to call the office back. Appointment scheduled: 04/04/2024 10:30 AM (Arrive by 10:15 AM) Mandi Hoover MD [facility] RAMAN Alonso [facility]05-07-2024 Miscellaneous Notes* Telephone Encounter - Etelvina Trujillo - 03/28/2024 10:11 AM EDT Called patient to schedule an appointment. No ans/left message to call the office back. Appointment scheduled: 04/04/2024 10:30 AM (Arrive by 10:15 AM) Mandi Hoover MD [facility] RAMAN Alonso * Telephone Encounter - Rose Velasquez APRN.[employer] - 03/28/2024 9:55 AM EDT Time Frame: First available Provider: Kkio Landrum Soni Referring: Corey Chacon MD Images to be requested from [facility] Dx: Right CPA mass Patient: Angela Ruth Address: Angela Ruth [id number] [place] [address] Dr [address] [place] [address] Per Triage: HISTORY OF PRESENT ILLNESS Angela Ruth is a 78 y.o. female. She has had loss of hearing in her right ear. Also had some headaches. An MRI was performed 03/02/2024 with and without contrast and shows a 1.5 cm lesion in theCPA angle on the right side. She has [...] mass at the right cerebellopontine angle. No extra-axialfluid collection or abnormal enhancement elsewhere. No significant [...] extracranial soft tissues are unremarkable. Rose Velasquez APRN.WIRE MILL OPERATOR March 28, 2024 * Telephone Encounter - Shelli Fletcher - 03/24/2024 4:55 PM EDT Referral source: Corey Chacon MD ([facility]) Reason for visit: consideration of gamma knife for 1.2 cm enhancing lesion at right cerebelloponitine angle with leading differential including vestibular schwannoma and meningioma External records: Sent with referral and pulled from [facility] Triage: Required, forwarded to [facility] by telephone encounter sent to [facility] Scheduling Triage. Financial clearance: Not required to schedule documented in this encounterAkron Children'S Hospital05-07-2024 Telephone encounter Note * Telephone Encounter - Rose Velasquez APRN.CNP - 03/28/2024 9:55 AM EDT Time Frame: First available Provider: Kiko Landrum Soni Referring: Corey Chacon MD Images to be requested from [facility] Dx: Right CPA mass Patient: Angela Ruth Address: Angela Ruth [id number] [place] [address] Per Triage: HISTORY OF PRESENT ILLNESS Angela Ruth is a 78 y.o. female. She has had loss of hearing in her right ear. Also had some headaches. An MRI was performed 03/02/2024 with and without contrast and shows a 1.5 cm lesion in theCPA angle on the right side. She has [...] mass at the right cerebellopontine angle. No extra-axialfluid collection or abnormal enhancement elsewhere. No significant [...] extracranial soft tissues are unremarkable. Rose Velasquez APRN.WIRE MILL OPERATOR March 28, 2024 [facility]05-03-2024 Telephone encounter Note* Telephone Encounter - Shelli Fletcher - 03/24/2024 4:55 PM EDT Referral source: Corey Chacon MD ([facility]) Reason for visit: consideration of gamma knife for 1.2 cm enhancing lesion at right cerebelloponitine angle with leading differential including vestibular schwannoma and meningioma External records: Sent with referral and pulled from [facility] Triage: Required, forwarded to [facility] by telephone encounter sent to [facility] Scheduling Triage. Financial clearance: Not required to schedule [facility]* Diagnosis General weakness- Primary Other malaise and fatigue History of falling documented in this encounter [facility]* Diagnosis Mixed hyperlipidemia (CMS/HCC)- Primary Mixed hyperlipidemia Stress incontinence of urine documented in this encounter [facility]* Diagnosis General weakness- Primary Other malaise and fatigue History of falling documented in this encounter [facility]* Diagnosis General weakness- Primary Other malaise and fatigue History of falling documented in this encounter [facility]* Diagnosis Brain mass [G93.89]- Primary Unspecified condition of brain [facility] Diagnosis Intracranial meningioma (HCC)- Primary Benign neoplasm of cerebral meninges Sensorineural hearing loss (SNHL) of right ear, unspecified hearing status on contralateral side Dizziness Dizziness and giddiness documented [facility] this encounter [facility]* Diagnosis Intracranial meningioma (HCC)- Primary Benign neoplasm of cerebral meninges Benign neoplasm of meninges (HCC) Benign neoplasm of cerebral meninges [facility] Diagnosis Benign neoplasm of meninges (HCC)- Primary Benign neoplasm of cerebral meninges Dizziness Dizziness and giddiness [facility]* Diagnosis Benign neoplasm of meninges (HCC) Benign neoplasm of cerebral meninges [facility] Diagnosis Dermatophytosis of nail- Primary [...] Hyperlipidemia, unspecified hyperlipidemia type ([facility]/HCC) [facility] [...] Vitamin D deficiency [facility] Diagnosis Osteoporosis, unspecified osteoporosis type, unspecified pathological fracture presence- Primary [facility]* Diagnosis Urinary frequency- Primary Essential hypertension ([facility]) Unspecified essential hypertension Age-related osteoporosis without current pathological fracture ([facility]) [facility]* Diagnosis Acute cystitis without hematuria- Primary [facility]* Diagnosis Gastroesophageal reflux disease without esophagitis Esophageal reflux documented in this encounter [facility]* Diagnosis Urge incontinence- Primary documented in this encounter [facility]* Diagnosis Osteoporosis, unspecified osteoporosis type, unspecified pathological fracture presence- Primary documented in this encounter [facility]* Diagnosis Hoarse- Primary Dysphonia Primary insomnia Persistent disorder of initiating or maintaining sleep Major depressive disorder, single episode, in full remission ([facility]) Major depressive disorder, 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 Fall, subsequent encounter Gastroesophageal reflux disease without esophagitis Esophageal reflux documented in this encounter [facility]* Diagnosis Hematuria, unspecified type documented in this encounter [facility]* Diagnosis Acute cystitis with hematuria- Primary documented in this encounter [facility]* Diagnosis Mixed hyperlipidemia ([facility]) Mixed hyperlipidemia Anxiety Anxiety state, unspecified documented [...] or maintaining sleep [facility]* Diagnosis Osteoporosis, unspecified osteoporosis type, unspecified pathological fracture presence- Primary [facility]* Diagnosis Migraine without aura and without status migrainosus, not intractable- Primary Essential tremor Cervical radiculopathy Brachial neuritis or radiculitis nos Bilateral occipital neuralgia documented in this encounter [facility]* Diagnosis Essential hypertension ([facility])- Primary Unspecified essential hypertension documented in this [facility]* Diagnosis Urge incontinence- Primary Frequent UTI Urinary tract infection, site not specified [facility]* Diagnosis Urge incontinence- Primary Frequent UTI Urinary tract infection, site not specified Osteoporosis, unspecified osteoporosis type, unspecified pathological fracture presence- Primary [facility]* Diagnosis Moderate persistent asthma, unspecified whether complicated ([facility]) documented in this encounter [facility]* Diagnosis Intractable migraine with aura without status migrainosus (CMS/HCC)- Primary Fall, subsequent encounter Essential hypertension (CMS/HCC) Unspecified essential hypertension documented in this encounter [...] Vitamin D deficiency documented in this encounter [facility]* Diagnosis Urge incontinence- Primary Frequent UTI Urinary tract infection, site not specified Kidney stones- Primary Calculus of kidney Urge incontinence Osteoporosis, unspecified osteoporosis type, unspecified pathological fracture presence- Primary documented in this encounter [facility]* Diagnosis Urge incontinence- Primary Frequent UTI Urinary tract infection, site not specified Kidney stones- Primary Calculus of kidney Urge incontinence documented in this encounter [facility]* Diagnosis Primary insomnia Persistent disorder of initiating or maintaining sleep Major depressive disorder, single episode, in full remission Major depressive disorder, 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 documented in this encounter [facility]* Diagnosis Stage 3b chronic kidney disease (CKD) ([facility]) Major depressive disorder, single episode, in full remission Major depressive disorder, 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 Age-related osteoporosis without current pathological fracture Moderate persistent asthma without complication (HCC) Diastolic dysfunction with chronic heart failure (HCC) Chronic idiopathic constipation Unspecified constipation Mild intermittent asthma without complication (HCC) Interstitial pulmonary disease, unspecified (HCC) documented in this encounter [facility] HealthcareEvaluation [facility]* Diagnosis Urge incontinence- Primary Frequent UTI Urinary tract infection, site not specified Kidney stones- Primary Calculus of kidney Urge incontinence Osteoporosis, unspecified osteoporosis type, unspecified pathological fracture presence- Primary documented in this encounter [facility]* Diagnosis Stage 3b chronic kidney disease (CKD) ([facility]) Major depressive disorder, single episode, in full remission Major depressive disorder, 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 Age-related osteoporosis without current pathological fracture Moderate persistent asthma without complication (HCC) Diastolic dysfunction with chronic heart failure (HCC) Chronic idiopathic constipation Unspecified constipation Mild intermittent asthma without complication (HCC) Interstitial pulmonary disease, unspecified (HCC) Gastroesophageal reflux disease without esophagitis Esophageal reflux documented in this encounter [facility] HealthcareEvaluation note* Diagnosis Urge incontinence- Primary Frequent UTI Urinary tract infection, site not specified Kidney stones- Primary Calculus of kidney Urge incontinence Osteoporosis, unspecified osteoporosis type, unspecified pathological fracture presence- Primary [facility] SystemHistory [facility] Present illness Narrative* Abran Maldonado RN - 01/12/2025 2:20 PM EST Pt here for evenity as scheduled. Calcium level 9.8. This is patients first evenity injection. Instructed on purpose/potential side effects of injection. Printed education given to patient. Injectiongiven SQ to two diff injection sites. Pt tolerated well. Dc'd in stable condition with family. Treatment calendar given. documented [facility]Not on file documented in this encounter[facility] SystemInstructionsNot on file documented in this encounterProMediConstruct SystemInstructionsNot on file documented in this [facility] SystemInstructionsNot on file documented in this [facility] SystemInstructionsNot on file documented in this [facility] SystemInstructionsNot on file documented in this encounterProMediConstruct SystemInstructionsNot on file documented in this [facility] Health SystemInstructionsNot on file documented in this encounter[facility] Health SystemInstructionsNot on file documented in this encounterProActive Endpoints SystemInstructionsNot on file documented in this encounterProActive Endpoints SystemReason for referral (narrative)* Consultation (Routine) - AuthorizedSpecialtyDiagnoses / Procedures Referred By ContactReferred To ContactUrology Diagnoses Urinary frequency Procedures OK OFFICE/OUTPATIENT [facility] 60 MINUTES Bia Cao MD [address] [place] [address] Maria C Kramer MD [address] [place] [address] Referral IDStatusReasonStart DateExpiration DateVisits RequestedVisits [id number] Specialty Services Required / [facility]Reason for visit Narrative* Episode Based Medications (Routine) - AuthorizedSpecialtyDiagnoses / ProceduresReferred By ContactReferred To Contact Diagnoses Osteoporosis, unspecified osteoporosis type, unspecified pathological fracture presence Procedures OK ROMOSOZUMAB INJECTION John Johnson MD [address] [facility] [place] [address] Phone: tel: fax: [facility] - Medical Oncology [address] [place] [address] Phone: tel: fax: Referral IDStatusReasonStart DateExpiration DateVisits RequestedVisits [id number]/15/20251/ [facility] System Summary Purpose Family History No Family History Records FoundNo Family History Records FoundNo Family History Records FoundNo Family History Records FoundNo Family History Records FoundNo Family History Records FoundNo Family History Records FoundNo Family History Records FoundNo Family History Records FoundNo Family History Records Found Advance Directives TypeDate RecordedPatient RepresentativeExplanationDurable Power of Blanket Maker 07/16/2021 3:45 PMLiving Will07/16/2021 3:40 PMDate ActivatedDate Inactivated Comments03/02/2023 4:15 AM03/03/2023 3:57 PMDate ActivatedDate InactivatedComments 07/03/2021 9:57 AM07/10/2021 6:07 PMDate ActivatedDate InactivatedComments 01/04/2018 4:32 PM2 6:44 PMDate ActivatedDate InactivatedComments 01/14/2017 8:37 AM01/15/2017 5:28 PMTypeDate RecordedPatient [place] ExplanationDurable Power of Attorney07/16/2021 3:45 PMLiving Will07/16/2021 3:40 PMDate ActivatedDate InactivatedComments03/02/2023 4:15 AM03/03/2023 3:57 PMDate ActivatedDate InactivatedComments07/03/2021 9:57 AM07/10/2021 6:07 PMDate ActivatedDate InactivatedComments01/04/2018 4:32 PM2 6:44 PMDate ActivatedDate InactivatedComments01/14/2017 8:37 AM01/15/2017 5:28 PM Reason for Referral SpecialtyDiagnoses / ProceduresReferred By ContactReferred To ContactMR IMAGING Diagnoses Benign neoplasm of meninges (HCC) Procedures MRI BRAIN WO/W IVCON MRI BRAIN BRAIN STEM W/O W/CONTRAST MATERIAL Mandi Hoover MD [address] [place] [id number] [facility] [place] [address] Referral IDStatusReasonStart DateExpiration DateVisits RequestedVisits [id number] Review Auto-Generated Referral [id number] / ProceduresReferred By ContactReferred To ContactMR IMAGING Diagnoses Benign neoplasm of meninges (HCC) Procedures MRI BRAIN WO/W IVCON MRI BRAIN BRAIN STEM W/O W/CONTRAST MATERIAL Rose Velasquez APRN.CNP [address] [place] [address] Mr [facility] [place] [address] Referral IDStatusReasonStart DateExpiration DateVisits RequestedVisits [id number] Request Auto-Generated Referral /[id number] IDStatusReasonStart DateExpiration DateVisits RequestedVisits [id number] Auto-Generated Referral Additional Source Comments INFORMATION SOURCE (unrecogn ized section and content) DATE CREATED AUTHOR 05/16/2018 [facility] DATE CREATED AUTHOR AUTHOR'S ORGANIZ ATION 06/21/2019 [facility] DATE CREATED AUTHOR AUTHOR'S ORGANIZ ATION 11/13/2022 [facility] DATE CREATED AUTHOR AUTHOR'S ORGANIZ ATION 12/07/2022 [facility] [employer] DATE CREATED AUTHOR AUTHOR'S ORGANIZ ATION 10/08/2024 [facility] DATE CREATED AUTHOR AUTHOR'S ORGANIZ ATION 04/21/2025 [facility] DATE CREATED AUTHOR AUTHOR'S ORGANIZ ATION 06/15/2025 [facility] DATE CREATED AUTHOR AUTHOR'S ORGANIZ ATION 07/12/2025 [facility] DATE CREATED AUTHOR AUTHOR'S ORGANIZ ATION 08/24/2025 [facility] DATE CREATED AUTHOR AUTHOR'S ORGANIZ ATION 09/07/2025 [facility] Reason for Visit (unrecogniz ed section and content) ReasonCommentsInjectionevenitySpecialtyDiagnoses / ProceduresReferred By Contact Referred To Contact Diagnoses Osteoporosis, unspecified osteoporosis type, unspecified pathological fracture presence Procedures OK ROMOSOZUMAB INJECTION John Johnson MD [address] [facility] [place] [address] Phone: tel: fax: [facility] - Medical Oncology [address] [place] [address] Phone: tel: fax: Referral IDStatusReasonStart DateExpiration DateVisits RequestedVisits [id number]/15/20251/[id number] InfusionEvenitySpecialtyDiagnoses / ProceduresReferred By ContactReferred To ContactPhysical Therapy Diagnoses Muscle weakness (generalized) Procedures TREATMENT Bia Cao MD [address] [place] [address] Jonny Salazar, PT [address] [place] [address] Referral IDStatusReasonStart DateExpiration DateVisits RequestedVisits [id number]/[id number] RefillReason CommentsReceived Outside Medical RecordsExternal referral to Neurological InstitutetriageNurse Triage CallAppointmentReasonCommentsConsultReasonComments New PatientIntracranial MeningiomaReasonCommentsRadiology MRISpecialtyDiagnoses / ProceduresReferred By ContactReferred To ContactMR IMAGING Diagnoses Benign neoplasm of meninges (HCC) Procedures MRI BRAIN WO/W IVCON MRI BRAIN BRAIN STEM W/O W/CONTRAST MATERIAL Mandi Hoover MD [address] [place] [address] Mr Imaging [facility] Referral IDStatusReasonStart DateExpiration DateVisits RequestedVisits [id number] Auto-Generated Referral /[id number] QuestionReasonCommentsIngrown Toenail Established pt presents today for concerns of possible ingrown nails, BL hallux. Denies infection.ReasonCommentsFollow-upPatient presents today for 4 month follow up.ReasonCommentsUTIPatient presents today for urgency, frequency, burning with urination. Patient states that it has been ongoing for 10 days. Seen Traci last Wednesday, the and urine results came back normal. Patient has been taking the cipro that Traci prescribed and is not any better.Reason CommentsFollow-upReasonCommentsFallER Follow-upReasonCommentsHoarsenessSpecialty Diagnoses / ProceduresReferred By ContactReferred To ContactOtolaryngology Diagnoses Hoarse Procedures OK OFFICE/OUTPATIENT [facility] 60 MINUTES Tae Hardy, TIESHA [address] [place] [address] Phone: tel: fax: Katerin Alvarado MD [address] [address] Phone: tel: fax: Referral IDStatusReasonStart DateExpiration DateVisits RequestedVisits [id number] Specialty Services Required /[id number] ThroatCoughReasonCommentsFollow-up1 month follow qlBuhmdvFyptwjjtZtvebv-ngFrbnzgGswvkngcAmpmsa-lzIxrJflnzmIsnjk Date Commentsoutgoing hnvwyqsh67/17/2025ReasonCommentsInjectionEvenity Care Teams (unrecognized sec tion and content) Team MemberRelationshipSpecialtyStart DateEnd Date Jacob Viveros PCP - [employer]11/22/22 Bia Cao MD [address] [place] [address] PCP - GeneralFamily Medicine04/29/23Team MemberRelationshipSpecialtyStart DateEnd Date Jacob Viveros PCP - [employer]11/22/22 Bia Cao MD [address] [place] [address] PCP - GeneralFamily Medicine04/29/23Team MemberRelationshipSpecialtyStart DateEnd Date Jacob Viveros PCP - [employer]11/22/22 Bia Cao MD [address] [place] [address] PCP - GeneralFamily Medicine04/29/23Team MemberRelationshipSpecialtyStart DateEnd Date Jacob Viveros PCP - [employer]11/22/22 Bia Cao MD [address] [place] [address] PCP - GeneralFamily Medicine04/29/23Team MemberRelationshipSpecialtyStart DateEnd Date Jacob Viveros PCP - [employer]11/22/22 Bia Cao MD [address] [place] [address] PCP - GeneralFamily Medicine04/29/23Team MemberRelationshipSpecialtyStart DateEnd Date Jacob Viveros PCP - [employer]11/22/22 Bia Cao MD [address] [place] [address] PCP - GeneralFamily Medicine04/29/23Team MemberRelationshipSpecialtyStart DateEnd Date (Hist), No Pcp PCP - Pqdtiqe47/14/17 Corey Chacon MD [address] [place] [address] NI Referring TeamNeurosurgery03/24/24Team MemberRelationshipSpecialtyStart DateEnd Date (Hist), No Pcp PCP - Xuvlfjb92/14/17 Corey Chacon MD [address] [place] [address] NI Referring TeamNeurosurgery03/24/24Team MemberRelationshipSpecialtyStart DateEnd Date (Hist), No Pcp PCP - Wmqwbfo69/14/17 Corey Chacon MD [address] [place] [address] NI Referring TeamNeurosurgery03/24/24Team MemberRelationshipSpecialtyStart DateEnd Date (Hist), No Pcp PCP - Eltxfqy64/14/17 Corey Chacon MD NI Referring TeamNeurosurgery03/24/24Team MemberRelationshipSpecialtyStart DateEnd Date (Hist), No Pcp PCP - Plbtkkt18/14/17 Corey Chacon MD NI Referring TeamNeurosurgery03/24/24Team MemberRelationshipSpecialtyStart DateEnd Date (Hist), No Pcp PCP - Poatmtg93/14/17 Corey Chacon MD NI Referring TeamNeurosurgery5Team MemberRelationshipSpecialtyStart DateEnd Date Jacob Viveros PCP - [employer]11/22/21 Bia Cao MD [address] [place] [address] PCP - GeneralFamily Medicine04/29/23Team MemberRelationshipSpecialtyStart DateEnd Date Jacob Viveros PCP - [employer]11/22/21 Bia Cao MD [address] [place] [address] PCP - GeneralFamily Medicine04/29/23Team MemberRelationshipSpecialtyStart DateEnd Date Jacob Viveros PCP - [employer]11/22/21 Bia Cao MD [address] [place] [address] PCP - GeneralFamily Medicine04/29/23Team MemberRelationshipSpecialtyStart DateEnd Date Jacob Viveros PCP - [employer]11/22/21 Bia Cao MD [address] [place] [address] PCP - GeneralFamily Medicine04/29/23Team MemberRelationshipSpecialtyStart DateEnd Date Jacob Viveros PCP - [employer]11/22/21 Bia Cao MD [address] [place] [address] PCP - GeneralFamily Medicine04/29/23Team MemberRelationshipSpecialtyStart DateEnd Date Jacob Viveros PCP - [employer]11/22/21 Bia Cao MD [address] [place] [address] PCP - GeneralFamily Medicine04/29/23Team MemberRelationshipSpecialtyStart DateEnd Date Jacob Viveros PCP - [employer]11/22/21 Bia Cao MD [address] [place] [address] PCP - GeneralFamily Medicine04/29/23Team MemberRelationshipSpecialtyStart DateEnd Date Jacob Viveros PCP - [employer]11/22/21 Bia Cao MD [address] [place] [address] PCP - GeneralFamily Medicine04/29/23Team MemberRelationshipSpecialtyStart DateEnd Date Jacob Viveros PCP - [employer]11/22/21 Bia Cao MD [address] [place] [address] PCP - GeneralFamily Medicine04/29/23Team MemberRelationshipSpecialtyStart DateEnd Date Bia Cao MD PCP - GeneralFamily Medicine02/05/23Team MemberRelationshipSpecialtyStart DateEnd Date Bia Cao MD PCP - GeneralFamily Medicine02/05/23Team MemberRelationshipSpecialtyStart DateEnd Date Bia Cao MD [address] [place] [address] [facility] - [facility]04/29/23 Bia Cao MD [address] [place] [address] PCP - Aet11/22/21Te MemberRelationshipSpecialtyStart DateEnd Date Bia Cao MD [address] [place] [address] PCP - [facility] Medicine04/29/23 Bia Cao MD [address] [place] [address] PCP - t11/22/21Te MemberRelationshipSpecialtyStart DateEnd Date Bia Cao MD [address] [place] [address] PCP - [facility] Medicine04/29/23 Bia Cao MD [address] [place] [address] PCP - t11/22/21Te MemberRelationshipSpecialtyStart DateEnd Date Bia Cao MD [address] [place] [address] PCP - [facility] Medicine04/29/23 Bia Cao MD [address] [place] [address] PCP - Aet11/22/21Team MemberRelationshipSpecialtyStart DateEnd Date Bia Cao MD PCP - [facility]02/05/23Team MemberRelationshipSpecialtyStart DateEnd Date Bia Cao MD PCP - [facility] Medicine02/05/23Team MemberRelationshipSpecialtyStart DateEnd Date Bia Cao MD [address] [place] [address] PCP - [facility] Medicine04/29/23 Bia Cao MD [address] [place] [address] PCP - [employer]11/22/21Team MemberRelationshipSpecialtyStart DateEnd Date Bia Cao MD [address] [place] [facility] [address] PCP - [facility] Medicine04/29/23 Bia Cao MD [address] [place] [address] PCP - [employer]11/22/21Team MemberRelationshipSpecialtyStart DateEnd Date Bia Cao MD [address] [place] [address] PCP - [facility] Medicine04/29/23 Bia Cao MD [address] [place] [address] PCP - [employer]et[employer]1/1/22Team MemberRelationshipSpecialtyStart DateEnd Date Bia Cao MD [address] [place] [facility] [address] PCP - Generalmily Medicine04/29/23 Bia Cao MD [address] [place] [facility] [address] PCP - [employer]11/22/21Team MemberRelationshipSpecialtyStart DateEnd Date Bia Cao MD [address] [place] [facility] [address] PCP - [facility] Medicine04/29/23 Bia Cao MD [address] [place] [facility] [address] PCP - [employer]11/22/21Team MemberRelationshipSpecialtyStart DateEnd Date Bia Cao MD [address] [place] [facility] [address] PCP - [facility] Medicine04/29/23 Bia Cao MD [address] [place] [facility] [address] PCP - [employer]11/22/21Team MemberRelationshipSpecialtyStart DateEnd Date Bia Cao MD [address] [place] [facility] [place] [address] PCP - [facility] Medicine04/29/23 Bia Cao MD [address] [place] [facility] [address] PCP - [employer]11/22/21Team MemberRelationshipSpecialtyStart DateEnd Date Bia Cao MD [address] [facility] [place] [address] PCP - GeneralFamily Medicine04/29/23 Bia Cao MD [address] [facility] [place] [address] PCP - [employer]11/22/21Team MemberRelationshipSpecialtyStart DateEnd Date Bia Cao MD [address] [facility] [place] [address] PCP - GeneralFamily Medicine04/29/23 Bia Cao MD [address] [facility] [place] [address] PCP - [employer]11/22/21Team MemberRelationshipSpecialtyStart DateEnd Date Bia Cao MD [address] [facility] [place] [address] PCP - GeneralFamily Medicine04/29/23 Bia Cao MD [address] [facility] [place] [address] PCP - [employer]11/22/21Team MemberRelationshipSpecialtyStart DateEnd Date Bia Cao MD PCP - GeneralFamily Medicine02/05/23Team MemberRelationshipSpecialtyStart DateEnd Date Bia Cao MD PCP - GeneralFamily Medicine02/05/23Team MemberRelationshipSpecialtyStart DateEnd Date Bia Cao MD [address] [place] [address] PCP - GeneralFamily Medicine04/29/23 Bia Cao MD [address] [place] [address] PCP - [employer]11/22/21Team MemberRelationshipSpecialtyStart DateEnd Date Bia Cao MD PCP - GeneralFamily Medicine02/05/23Team MemberRelationshipSpecialtyStart DateEnd Date Bia Cao MD PCP - GeneralFamily Medicine02/05/23Team MemberRelationshipSpecialtyStart DateEnd Date Bia Cao MD PCP - GeneralFamily Medicine02/05/23Team MemberRelationshipSpecialtyStart DateEnd Date Bia Cao MD PCP - Generalmi Medicine02/05/23Team MemberRelationshipSpecialtyStart DateEnd Date Bia Cao MD [address] [place] [address] PCP - Generalmi Medicine04/29/23 Bia Cao MD [address] [place] [address] PCP - [employer]11/22/21Team MemberRelationshipSpecialtyStart DateEnd Date Bia Cao MD PCP - GeneralFamily Medicine02/05/23Team MemberRelationshipSpecialtyStart DateEnd Date Bia Cao MD PCP - Generalmily Medicine02/05/23Team MemberRelationshipSpecialtyStart DateEnd Date Bia Cao MD PCP - Generalmily Medicine02/05/23Team MemberRelationshipSpecialtyStart DateEnd Date Bia Cao MD PCP - [facility]Mer[facility] Centerly Medicine02/05/23Team MemberRelationshipSpecialtyStart DateEnd Date Bia Cao MD [address] [place] [address] PCP - Generalmily Medicine04/29/23 Bia Cao MD [address] [place] [facility] [place] [address] PCP - [employer]11/22/21Team MemberRelationshipSpecialtyStart DateEnd Date Bia Cao MD [address] [place] [address] PCP - Generalmily Medicine04/29/23 Bia Cao MD [address] [place] [address] PCP - [employer]11/22/21Team MemberRelationshipSpecialtyStart DateEnd Date Bia Cao MD [address] [place] [address] PCP - GeneralFamily Medicine04/29/23 Bia Cao MD [address] [place] [address] PCP - [employer]11/22/21Team MemberRelationshipSpecialtyStart DateEnd Date Bia Cao MD PCP - GeneralMer[facility] Centerly Medicine02/05/23Team MemberRelationshipSpecialtyStart DateEnd Date Bia Cao MD [address] [place] [address] PCP - [facility] Medicine04/29/23 Bia Cao MD [address] [place] [address] PCP - [employer]11/22/21Team MemberRelationshipSpecialtyStart DateEnd Date Bia Cao MD PCP - GeneralFamily Medicine02/05/23Team MemberRelationshipSpecialtyStart DateEnd Date Bia Cao MD PCP - [facility] Medicine02/05/23 Source Comments (unrecognize d section and content) In the event this informatio n is protected by the Federal Confidentiality of Alcohol and Drug Abuse Patient Records regulations: The Federal rules restrict any use of the information to criminally investigate or prosecute any alcohol or drug abuse patient.[facility] HospitalIn the event this information is protected by the Federal Confidentiality of Alcohol and Drug Abuse Patient Records regulations: The Federal rules restrict any use of the information to criminally investigate or prosecute any alcohol or drug abuse patient.[facility] HospitalIn the event this information is protected by the Federal Confidentiality of Alcohol and Drug Abuse Patient Records regulations: The Federal rules restrict any use of the information to criminally investigate or prosecute any alcohol or drug abuse patient.[facility] HospitalIn the event this information is protected by the Federal Confidentiality of Alcohol and Drug Abuse Patient Records regulations: The Federal rules restrict any use of the information to criminally investigate or prosecute any alcohol or drug abuse patient.[facility] HospitalIn the event this information is protected by the Federal Confidentiality of Alcohol and Drug Abuse Patient Records regulations: The Federal rules restrict any use of the information to criminally investigate or prosecute any alcohol or drug abuse patient.[facility] HospitalIn the event this information is protected by the Federal Confidentiality of Alcohol and Drug Abuse Patient Records regulations: The Federal rules restrict any use of the information to criminally investigate or prosecute any alcohol or drug abuse patient.[facility] FOR RECORDS PERTAINING TO PATIENTS WHO [...] BE BASED ON THE PRIMARY CLINICAL RECORDS. [employer] [facility]. provides no warranty or guarantee of the accuracy or completeness of information in this document.
[2025-09-17 10:31] VITALS: BP 132/60; PULSE 69; TEMP 36.8; O2SAT 95
[2025-09-17 11:08] VITALS: BP 176/75; PULSE 65; O2SAT 96
[2025-09-17 11:11] VITALS: BP 175/77; PULSE 63; O2SAT 95
[2025-09-17] MEDS: DEXAMETHASONE SOD PHOS 10 MG/ML VIAL INJ (11:17)
[2025-09-17] MEDS: BUPIVACAINE HCL 0.25% PF 25 MG/10 ML VIAL 2 ML INJ (11:17)
[2025-09-17] MEDS: LIDOCAINE HCL 2% 400 MG/20 ML MDV 6 ML INJ (11:17)
--- NOTE | 2025-09-17 11:20 | P.ON_ITS ---
Date of procedure: 09/17/25 Pre-op diagnosis: Pain due to thoracic spondylosis without myelopathy Post-op diagnosis: same as pre-op Procedure: Procedure: Left T8-9, 9-10 radiofrequency ablation Medications: Bupivacaine 0.25% 2cc, dexamethasone 10mg, lidocaine 2% 5cc The patient was seen and examined in the preoperative holding area.? The site was marked.? Written informed consent was obtained and placed on the chart.? The patient was brought to the medical procedure unit and placed in the prone position.? A timeout was completed verifying correct patient, procedure, positioning, and special requirements.? The skin overlying the target points, the designated medial branch, was prepped and draped in the usual sterile fashion.? The target point was achieved with a 20-gauge 15 cm with a 10 mm curved active tip radiofrequency cannula under direct fluoroscopic visualization .? The needle was inserted at level T8 on the left side. Needle tip position was confirmed with lateral fluoroscopic position.? Motor stimulation was carried out at 2 Hz up to 5 volts with the absence of extremity activity.? This was repeated at level T9, 10 on left side.?? Sensory stimulation was carried out.? Concordant pain was realized at the above- mentioned sites.? Then radiofrequency lesioning was carried out times 90 seconds at 80 degrees times 2 lesions at each level.? The radiofrequency probe was removed prior to cannula removal.? The above-mentioned injectate was placed in 1 mL increments.? The needle was removed.? Insertion sites were covered.? The patient was taken to the postoperative recovery area and monitored for an appropriate length of time before being found suitable for discharge in the company of a responsible adult. Anesthesia: Local Surgeon: Adelfo Hansen Pathology: none sent Condition: stable Disposition: no change
== END 2025-09-17 11:21 | disposition home or self-care (01) ==
PROVIDERS: PCP Family Medicine; Visit Provider Anesthesiology
DX: M47.814 Spondylosis without myelopathy or radiculopathy, thoracic region (principal); M54.6 Pain in thoracic spine
CPT/HCPCS: 64633; 64634; J0665; J1100

== ENCOUNTER 2025-10-17 11:11 | Outpatient (OUT) | payer MEDICARE, SELFPAY ==
--- OUTSIDE RECORDS SUMMARY | 2025-10-09 09:15 | XMS_ITS | Encounter Summary ---
Author Organization [facility] Address [address] [place] [address] Care Team Providers Care Construction Safety Consultant Name Role Phone Bia Cao MD Primary Care Provider [phone] Bia Cao MD Unavailable Reason for Visit * ReasonCommentsToenail ProblemEstablished patient presents today for concerns with RGT, patient states she has issues with nail fungus and states the nail is cutting down in to her toe. Does not appear infected, but patient states it does hurt. Patient states ongoing for a couple of weeks. Encounter Details DateTypeDepartmentCare Team (Latest Contact Info)Jtfycgaphmv62/18/2025 9:15 AM ESTOffice Visit [facility] [address] [place] [phone] Rodolfo Christianson, DPM [address], [place] [id number] Dermatophytosis of nail (Primary Dx); Dystrophic nail; Pain around toenail, right foot Social History Tobacco UseTypesPacks/DayYears UsedDateSmoking Tobacco: NeverSmokeless Tobacco: Never Tobacco Cessation:Counseling Given: Not Answered Comments:Second hand smoke from Father Alcohol UseStandard Drinks/WeekCommentsNot Currently0 (1 standard drink = 0.6 oz pure alcohol)caffeine: occasionalSocial Connection and Isolation PanelAnswerDate RecordedIn a typical week, how many times do you talk on the phone with family, friends, or neighbors?More than three times a week04/02/2024How often do you get together with friends or relatives?More than three times a week04/02/2024How often do you attend confucianist or jewish services?More than 4 times per year 04/02/2024o you belong to any clubs or organizations such as confucianist groups, unions, fraternal or athletic groups, or school groups?Yes04/02/2024How often do you attend meetings of the clubs or organizations you belong to?More than 4 times per year04/02/2024re you , , , , never , or living with a partner?Bvcwpdd2904/02/2024UDIT-CAnswerDate RecordedQ1: How often do you have a drink containing alcohol?Never04/02/2024Q2: How many drinks containing alcohol do you have on a typical day when you are drinking? Patient does not drink04/02/2024Q3: How often do you have six or more drinks on one occasion?Never04/02/2024Overall Financial Resource Strain (CARDIA)AnswerDate RecordedHow hard is it for you to pay for the very basics like food, housing, medical care, and heating?Not very hard04/02/2024HQ-2AnswerDate RecordedPatient Health Questionnaire-2 [id number] mountain hospital, inc. [place] of Occupational [facility] - Occupational Stress QuestionnaireAnswerDate RecordedDo you feel stress - tense, restless, nervous, or anxious, or unable to sleep at night because your mind is troubled all the time - these days?Rather much04/02/2024Exercise Vital SignAnswerDate RecordedOn average, how many days per week do you engage in moderate to strenuous exercise (like a brisk walk)?3 days04/02/2024On average, how many minutes do you engage in exercise at this level?10 min04/02/2024Hunger Vital SignAnswerDate RecordedWithin the past 12 months, you worried that your food would run out before you got the money to buymore.Never true04/02/2024 Within the past 12 months, the food you bought just didn't last and you didn't have money to get more.Never true04/02/2024RAPARE - TransportationAnswerDate RecordedLack of Transportation (Medical)Not on file04/02/2024In the past 12 months, has lack of transportation kept you from meetings, work, or from getting things needed for daily living?No04/02/2024Housing Stability Vital SignAnswer Date RecordedIn the last 12 months, was there a time when you were not able to pay the mortgage or rent on time?Yes04/02/2024In the last 12 months, how many places have you lived?In the last 12 months, was there a time when you did not have a steady place to sleep or slept in ashelter (including now)?No 04/02/2024CommentsUnknownSex and Gender InformationValueDate RecordedSex Assigned at BirthNot on fileLegal LufPnyhgv63/15/2023 7:26 PM EDTGender Identity Not on fileSexual OrientationNot on filedocumented as of this encounter Last Filed Vital Signs Vital SignReadingTime TakenCommentsBlood Pressure--Pulse--Temperature-- Respiratory Rate--Oxygen Saturation--Inhaled Oxygen Concentration--Qopqga97.9 kg (136 lb 6.4 oz)10/09/2025 9:27 AM AEZUzwmao705 cm (5' 3 )10/09/2025 9:27 AM EST Body Mass Index24.16112/09/2024 9:27 AM ESTdocumented in this encounter Patient Instructions * Patient Instructions* Rodolfo Christianson DPM - 10/09/2025 9:15 AM EST Topical care measures as noted documented in this encounter Progress Notes * Rodolfo Christianson DPM - 10/09/2025 9:15 AM EST Images from the original note were not included. Subjective Patient ID: Angela Ruth is a 80 y.o. female who presents for Toenail Problem (Established patient presents today for concerns with RGT, patient states she has issues with nail fungus and states the nail is cutting down in to her toe. Does not appear infected, but patient states it does hurt. Patient states ongoing for a couple of weeks. ). HPI Patient last in clinic October 2024. Chief complaint: Thickened, discolored toenail right great toe. Symptomatic with footwear pressure; impacting her ability to walk comfortably. Also complains of catching and snagging on clothing etc. Denies bleeding or drainage. Chronic toenail deformity of multiple years duration. Self-care is difficult, ineffective and not practical; increasing risk exposure. Family members unable to provide effective care. Palliative care measures have provided favorable transient symptom relief; last provided here in October 2024. Risk factors: Medical comorbidities. Polypharmacy. ASA therapy. Mobility and flexibility restraints. Toenail deformity. Digital and/or shoe trauma and related complications. Medications Current Outpatient Medications: Ascorbic Acid (vitamin C) 1000 MG tablet, 1 (one) time each day at the same time, Disp: , Rfl: aspirin 81 MG EC tablet, Take 81 mg by mouth in the morning., Disp: , Rfl: atorvastatin (Lipitor) 40 MG tablet, Take 1 tablet (40 mg) by mouth Daily, Disp: 90 tablet, Rfl: 3 buprenorphine (Butrans) 7.5 MCG/HR, Place 1 patch on the skin 1 (one) time per week, Disp: , Rfl: Calcium Carb-Cholecalciferol 600-20 MG-MCG tablet, Take 600 mg by mouth at bedtime, Disp: , Rfl: carvedilol (Coreg) 25 MG tablet, Take 1 tablet (25 mg) by mouth in the morning and 1 tablet (25 mg)before bedtime., Disp: 180 tablet, Rfl: 3 cholecalciferol (Vitamin D-3) 25 MCG (1000 UT) tablet, 1,000 Units in the morning. Take before meals., Disp: , Rfl: CRANBERRY CONCENTRATE PO, Take 1 tablet by mouth in the morning., Disp: , Rfl: escitalopram (Lexapro) 20 MG tablet, Take 1 tablet (20 mg) by mouth in the evening. Take with meals, Disp: 100 tablet, Rfl: 3 famotidine (Pepcid) 20 MG tablet, Take 1 tablet (20 mg) by mouth at bedtime, Disp: 90 tablet, Rfl: 3 fenofibrate (Triglide) 160 MG tablet, Take 1 tablet (160 mg) by mouth in the morning., Disp: 40 tablet, Rfl: 11 ferrous sulfate 325 (65 Fe) MG tablet, Take 1 tablet (325 mg) by mouth in the morning and 1 tablet (325 mg) in the evening. Take with meals., Disp: 200 tablet, Rfl: 3 fexofenadine (Ally Allergy) 180 MG tablet, 1 (one) time each day at the same time, Disp: , Rfl: hydrALAZINE (Apresoline) 100 MG tablet, Take 1 tablet (100 mg) by mouth in the morning., Disp: 90 tablet, Rfl: 3 hydrALAZINE (Apresoline) 50 MG tablet, Take 50 mg by mouth Only if bp is above 170, an hour after taking 100mg hydralazine., Disp: , Rfl: Lactobacillus (Florajen Women) capsule, , Disp: , Rfl: levothyroxine (Synthroid, Levoxyl) 150 MCG tablet, , Disp: , Rfl: lisinopril-hydroCHLOROthiazide 20-12.5 MG tablet, Take 1 tablet by mouth in the morning., Disp: 90 tablet, Rfl: 3 MAGNESIUM PO, Take 500 mg by mouth in the morning., Disp: , Rfl: methocarbamol (Robaxin) 500 MG tablet, Take 1,000 mg by mouth at bedtime, Disp: , Rfl: mirtazapine (Remeron) 15 MG tablet, Take 1 tablet (15 mg) by mouth at bedtime, Disp: 90 tablet, Rfl: 11 multivitamin with minerals (Centrum) 9-200 mg-mcg tablet split tablet, , Disp: , Rfl: omeprazole (PriLOSEC) [address] capsule, Take 1 capsule by mouth in the morning (Patient taking differently: Take 40 mg by mouth in the morning.), Disp: 100 capsule, Rfl: 11 oxybutynin XL (Ditropan-XL) 10 MG 24 hr tablet, Take 1 tablet (10 mg) by mouth Daily, Disp: 90 tablet, Rfl: 3 romosozumab (Evenity) 105 MG/1.17ML prefilled syringe, Inject 210 mg under the skin every 30 (thirty) days, Disp: , Rfl: Ubrelvy 100 MG tablet, Take 1 tablet by mouth Daily as needed (migraine), Disp: , Rfl: zafirlukast (Accolate) 20 MG tablet, Take 1 tablet (20 mg) by mouth in the morning and 1 tablet (20mg) before bedtime., Disp: 180 tablet, Rfl: 3 albuterol HFA 90 mcg/act inhaler, Inhale 2 puffs every 4 (four) hours if needed for shortness of breath or wheezing, Disp: 18 g, Rfl: 3 amitriptyline (Elavil) 50 MG tablet, Take 1 tablet (50 mg) by mouth at bedtime, Disp: 90 tablet, Rfl: 3 fluticasone (Flonase) 50 MCG/ACT nasal spray, Administer 1-2 sprays into each nostril in the morning. Shake gently. Before first use, prime pump. After use, clean tip and replace cap.., Disp: 16 g, Rfl: 2 Allergies Indomethacin, Lincomycin, Other, Sulfa antibiotics, Egg protein-containing drug products, Lincomycin hcl, Poultry meal, Sulfamethoxazole-trimethoprim, Aspartame, Augmentin [amoxicillin-pot clavulanate], Clavulanic acid, Clemizole, Influenza vaccines, Penicillins, and Wound dressing adhesive Past Surgical History Past Surgical History: Procedure Laterality Date ADENOIDECTOMY 1953 APPENDECTOMY 1965 BREAST BIOPSY x4 - [id number] CHOLECYSTECTOMY 2002 EYE SURGERY 01/21/2023 retinal repair [facility] HEMANGIOMA EXCISION 1946 from upper back HYSTERECTOMY 1984 KNEE SURGERY Bilateral arthroscopic knee surgery x3 (Rx2, Lx1) ([id number]) LAPAROTOMY OOPHERECTOMY 1985 LUMBAR DISCECTOMY 1989 partial LUMBAR DISCECTOMY 01/14/2017 Microdiscetomy L5-S1 LUMBAR DISCECTOMY 07/03/2021 L1-2 partial discectomy, L1-2, L2-3 cleaning out of stenosis in the spinal canal DR. Edwards [facility] LUMBAR EPIDURAL INJECTION 12/20/2020 Dr Clifton [...] General Examination: GENERAL APPEARANCE: Alert and oriented. Pleasant disposition. Accompanied by her surrogate granddaughter, Mallory. Vascular: DORSALIS PEDIS PULSE: bilaterally, 2/4 . [...] keratotic pressure lesions are noted. NAIL PATHOLOGY: Right great toe: DSO/pincer toenail deformity: Toenail dystrophy, thickening, elongation, discoloration; particularly of the lateral marginal nail plate; the distal margin is deeply incurvated/cryptotic, keratotic, tender, slightly inflamed, without drainage. All remaining digits: Mildly dystrophic. INTERDIGITAL MACERATION: Clean, dry, non-inflamed. ULCER: No sign of ulceration or open wound . SKIN PATHOLOGY: texture, turgor, hair growth, within normal limits . Ankle / Foot: ANKLE: INSPECTION: stance assessment: Symmetrical, mildly pronated foot type bilateral. Relaxed hindfoot position is vertical to slightly everted. Stable medial column. RANGE OF MOTION: Demonstrates functional ankle, subtalar and 1st MTP joint range of motion without pain. Radiology: Assessment/Plan Symptomatic onychodystrophy/mycosis right great toe. Lumbar spinal stenosis with degenerative disc disease; with lumbar radiculopathy. Plan: conservative and palliative care measures are preferred and again indicated; expressing no interest in oral therapy. She does express an interest in topical care measures: Use of vinegar and/or Listerine antiseptics as directed. Also discussed formula 7 for consideration (declines). Hygiene and skin care measures discussed. Follow up: 6 months Procedure: Toenail debridement: Aseptic technique: Hand and [...] or corrected. Thank you for your understanding. Rodolfo Christianson DPM documented in this encounter Plan of Treatment DateTypeDepartmentCare Team (Latest Contact Info)Hhhryhzmgod75/17/2025 1:40 PM ESTOffice Visit [facility] [address] [place] [phone] Bia Cao MD [address] [place], [place] [phone] 04/08/2026 10:15 AM EDTOffice Visit [facility] [address] [place] [phone] Rodolfo Christianson DPM [address] [place], [place] [phone] documented as of this encounter Goals GoalPatient Goal TypeAssociated ProblemsRecent ProgressPatient-Stated?Author Help patient manage antidepressant medication Care PlanPatient on antidepressant monitoring planBia Deleon, MDdocumented as of this encounter Visit Diagnoses Diagnosis Dermatophytosis of nail- Primary Dystrophic nail Other specified disease of nail Pain around toenail, right foot documented in this encounter Additional Health Concerns Active ProblemsNoted DateDiagnosed DatePatient on antidepressant monitoring plan 4AssessmentNoted TimePHQ-9 Depression Total Score: 7012/06/2023 2:00 PM ESTdocumented as of this encounter Care Teams Team MemberRelationshipSpecialtyStart DateEnd Date Bia Cao MD [address] [place] [address] [facility] Bia Cao MD [address] [place] [address] PCP - Aet11/22/21documented as of this encounter
--- OUTSIDE RECORDS SUMMARY | 2025-10-17 11:14 | XMS_ITS | Clinical Summary ---
Author Organization [facility] Address [address] [place] [address] Care Team Providers Care Clinic Office Assistant Name Role Phone (Hist), No Pcp Primary Care Provider Corey Messina MD Unavailable [phone] Allergies Active AllergyReactionsCriticalityNoted DateCommentsAdhesiveOther: See Comments 11/04/2016 States causes blisters/even paper tape Amoxicillin-Pot MwdcdfwvubsMijo77/23/2011spartameOther: See CommentsLow 02/12/2017 migraines Clavulanic DzyxVphaVcl76/24/8085FnrezdrjpWkkzDbi99/24/2017Egg WhiteSwelling 08/14/2011 Says about 1964? and only one arm affected. No rash, hives, or trouble breathing Influenza Virus DaqxxvqmQsrlbzcvShrlyr71/24/7341GxytchdvtoHyezHfc62/14/2016 IoyomcnnarpdScajpijzyepRtqt65/24/7357LczxgajfxRermSjt02/14/2016PenicillinsRash Low11/04/2016 Medications MedicationSigDispense QuantityRefillsLast FilledStart DateEnd DateStatus [...] 20 mg capsule 20 mg once daily.12/02/2016Active eptlvsxpymtqd-tdooiqdqvtrcxqopub-hugcfddgejipa (MIDRIN) 65-100-325 mg per capsule 1 capsule [...] mg in the A.M and 200 at zihcjvl373Active hydrALAZINE (APRESOLINE) 100 mg tablet take 1 [...] midline low back pain with sciatica 01/27/2018 Encounters DateTypeDepartmentCare QmljSrrnptwaglz70/18/2025 Patient Msg Medical Records [address] [place] [address] (Hist), No Pcp Update for Our Medicare Patients Regarding Virtual Riexqx2110/02/2025Travel 10/01/2025 10:42 AM EST - 10/01/2025 11:59 PM ESTHospital Encounter Radiology [address] [place] [address] 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] Discharge Disposition: Home10/01/20251071[place]ofpuk96/08/2025 [place] [address] Provider, [facility] MRI Screening Questionnaire Completion Yittkwlk46/05/2025 Patient Msg Medical Records [address] [place] [address] (Hist), No Pcp Important Notice for Our Medicare Patients Regarding Appointment Schedulingfrom Last 3 Months Social History Tobacco UseTypesPacks/DayYears UsedDateSmoking Tobacco: NeverSmokeless Tobacco: NeverAlcohol UseStandard Drinks/WeekCommentsNo0 (1 standard drink = 0.6 oz pure alcohol)Area Deprivation IndexAnswerDate RecordedNational Score (1-100), lower number is lower wlst598004/04/2024State Score (1-10), lower number is lower risk9 04/04/2024ata from: https://www.neighborhoodatlas.medicine.[facility]/. Last address used for [address]04/04/2024CommentsNoSex and Gender InformationValueDate RecordedSex Assigned at BirthNot on fileLegal Sex Jvjsdl5210/23/2012 8:38 AM ESTGender IdentityNot on fileSexual OrientationNot on file Last Filed Vital Signs Vital SignReadingTime TakenCommentsBlood Trvwngvm405/8109/26/2024 1:39 PM EST Hzglz197009/26/2024 1:39 PM VJOZakuxfhbqbw95.5 ??C (97.7 ??F)04/04/2024 11:29 AM EDTRespiratory Nfkt245804/04/2024 11:29 AM EDTOxygen Veeqvxggdq15%09/26/2024 1:39 PM ESTInhaled Oxygen Concentration--Kouirg46 kg (147 lb 11.3 oz)09/26/2024 1:39 PM DXPQhnrfj423 cm (5' 3 )04/04/2024 11:29 AM EDTBody Mass Index26.17004/04/2024 11:29 AM EDT Plan of Treatment Health MaintenanceDue DateLast DoneCommentsAnxiety Icbsvahdp54/08/1963Depression Baevezohz79/08/1963Shingrix Vaccine (1 of 2)DTaP,Tdap,Td Vaccine (1 - Tdap)dvance Directive Lsxfemequp40/01/2025 Medicare Advantage Annual Wellness Visit11/22/2024ovid-19 Vaccine ( season)504/, 02/12/2021Influenza Vaccine (#1)2025 09/17/2020, 08/30/2019, 08/29/2018, Additional history existsDiabetes Screening 7002/11/2024, 01/11/2024, 2023, Additional history exists Pneumococcal Vaccine: 50+Kpnalhlwx64/22/2020, 08/13/2015, 08/31/2003Bone Density XarvsxrodOgrisnfjd62/12/2024Mammogram CchesywdqWnhrtbydyutd63/02/2024, 02/22/2024, 12/13/2020, Additional history existsRSV XfbvztvHldpdcqjt99/05/2024 Procedures Procedure NamePriorityDate/TimeAssociated DiagnosisCommentsMRI BRAIN WO/W IVCON Xjjvfnz0010/01/2025 11:48 AM EST Benign neoplasm of meninges (HCC) from Last 3 Months Results * MRI BRAIN WO/W IVCON (10/01/2025 11:48 AM EST)Anatomical RegionLaterality ModalityHeadMagnetic ResonanceSpecimen (Source)Anatomical Location / LateralityCollection Method / VolumeCollection TimeReceived Time10/01/2025 11:48 AM EST Impressions 10/01/2025 1:10 PM EST IMPRESSION: Stable size of the mass along the posterior right petrous temporal bone with minimal local mass effect on the anterior right cerebellar hemisphere, likely reflecting a small meningioma. Buffing Wheel Raker: PSCB ?? Transcribe Date/Time: Oct 01 2025 ??1:01P Dictated by : TISHA TRUONG MD This examination was interpreted and the report reviewed and electronically signed by: TISHA TRUONG MD on Oct 01 2025 ??1:08PM ??EST Narrative 10/01/2025 1:10 PM EST * * *Final Report* * * DATE OF EXAM: Oct 01 2025 11:48AM ?? LNM ?? 0295 ??- ??MRI BRAIN WO/W IVCON ??/ PROCEDURE REASON: Benign neoplasm of meninges (HCC) ? * * * * Physician Interpretation * * * * EXAMINATION: ??MRI BRAIN WO/W IVCON Clinical history: As provided by the ordering clinician via order question entries: ??CN VII-VIII (IAC). Meningioma. 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 TECHNIQUE: ??IAC protocol brain MRI without and with contrast. MQ: ??MRBWOW_2 Contrast: ??6 mL Elucirem IV Comparison: 09/26/2024 brain MRI without and with contrast RESULT: Acute Change: ??No abnormal restricted diffusion to suggest an acute infarct. Hemorrhage: No dedicated GRE or SWI sequences were obtained due to the protocol selected, however, no signal abnormalities are present on the remaining pulse sequences to suggest acute intracranial hemorrhage. Mass Lesion/ Mass Effect: ??Unchanged size of the extra-axial dural based T2/FLAIR heterogenous, but only peripherally hyperintense and centrally hypointense, T1 isointense, homogenously enhancing 0.9 x 1.2 x 1.3 cm (anteroposterior, transverse, craniocaudal) mass along the posterior right petrous temporal bone (series 11, image 84) with minimal focal abutment along the inferior margin of the right tentorial leaflet. ?? Minimal local mass effect along the anterior margin of the right cerebellar hemisphere and no adjacent parenchymal edema. ??No mass effect on the right 7th and 8th cranial nerve complex and no apparent IAC mass otherwise. Chronic Change: Scattered patchy areas of T2/FLAIR hyperintensity in the supratentorial white matter and tyler, nonspecific, but likely representing mild chronic microvascular ischemic change. Parenchyma: There is mild generalized parenchymal volume loss. Ventricles: Ventricular calibers are commensurate with the parenchymal volume and normal in configuration. Skull Base: Hypothalamic and pituitary region are grossly normal. Craniocervical junction is normal. No significant marrow replacement process. Vasculature: ??Major intracranial arterial structures, and dural venous sinuses show typical flow void, suggesting patency by spin echo criteria. Other: Mild mucosal thickening throughout the anterior ethmoid air cells and of the right greater than left maxillary sinuses. ??The paranasal sinuses are otherwise essentially clear. ??Trace fluid in the right posterior cells. ??Left mastoid air cells and middle ear cavities appear clear. Bilateral pseudophakia. The orbits are otherwise unremarkable. The extracranial soft tissues are within normal limits. Procedure Note Provider, [facility] - 10/01/2025 * * *Final Report* * * DATE OF EXAM: Oct 01 2025 11:48AM LNM 0295 - MRI BRAIN WO/W IVCON / PROCEDURE REASON: Benign neoplasm of meninges (HCC) * * * * Physician Interpretation * * * * EXAMINATION: MRI BRAIN WO/W IVCON Clinical history: As provided by the ordering clinician via order question entries: CN VII-VIII (IAC). Meningioma. 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 TECHNIQUE: IAC protocol brain MRI without and with contrast. MQ: MRBWOW_2 Contrast: 6 mL Elucirem IV Comparison: 09/26/2024 brain MRI without and with contrast RESULT: Acute Change: No abnormal restricted diffusion to suggest an acute infarct. Hemorrhage: No dedicated GRE or SWI sequences were obtained due to the protocol selected, however, no signal abnormalities are present on the remaining pulse sequences to suggest acute intracranial hemorrhage. Mass Lesion/ Mass Effect: Unchanged size of the extra-axial dural based T2/FLAIR heterogenous, but only peripherally hyperintense and centrally hypointense, T1 isointense, homogenously enhancing 0.9 x 1.2 x 1.3 cm (anteroposterior, transverse, craniocaudal) mass along the posterior right petrous temporal bone (series 11, image 84) with minimal focal abutment along the inferior margin of the right tentorial leaflet. Minimal local mass effect along the anterior margin of the right cerebellar hemisphere and no adjacent parenchymal edema. No mass effect on the right 7th and 8th cranial nerve complex and no apparent IAC mass otherwise. Chronic Change: Scattered patchy areas of T2/FLAIR hyperintensity in the supratentorial white matter and tyler, nonspecific, but likely representing mild chronic microvascular ischemic change. Parenchyma: There is mild generalized parenchymal volume loss. Ventricles: Ventricular calibers are commensurate with the parenchymal volume and normal in configuration. Skull Base: Hypothalamic and pituitary region are grossly normal. Craniocervical junction is normal. No significant marrow replacement process. Vasculature: Major intracranial arterial structures, and dural venous sinuses show typical flow void, suggesting patency by spin echocriteria. Other: Mild mucosal thickening throughout the anterior ethmoid air cells and of the right greater than left maxillary sinuses. The paranasal sinuses are otherwise essentially clear. Trace fluid in the right posterior cells. Left mastoid air cells and middle ear cavities appear clear. Bilateral pseudophakia. The orbits are otherwise unremarkable. The extracranial soft tissues are within normal limits. IMPRESSION IMPRESSION: Stable size of the mass along the posterior right petrous temporal bone with minimal local mass effect on the anterior right cerebellar hemisphere, likely reflecting a small meningioma. Buffing Wheel Raker: ALLYSSA Transcribe Date/Time: Oct 01 2025 1:01P Dictated by : TISHA TRUONG MD This examination was interpreted and the report reviewed and electronically signed by: TISHA TRUONG MD on Oct 01 2025 1:08PM EST Authorizing ProviderResult TypeResult StatusTara Morgan CAREER DEVELOPMENT MANAGER.CNPMRI-PAMAFinal Result from Last 3 Months Insurance * Guarantor: Angela Ruth TypeRelation to PatientDate of BirthPhone Billing AddressPersonal/OglgexTchh[address] [place] [address] Care Teams Team MemberRelationshipSpecialtyStart DateEnd Date (Hist), No Pcp PCP - Lhtqwox81/14/17 Corey Chacon MD [place] Referring TeamNeurosurgery03/24/24
--- OUTSIDE RECORDS SUMMARY | 2025-10-17 11:14 | XMS_ITS | Encounter Summary ---
Author Organization [facility] Address [address] [place] [address] Care Team Providers Care Hoop Punch And Coiler Operator Name Role Phone (Hist), No Pcp Primary Care Provider Corey Messina MD Unavailable [phone] Source Comments In the event this information is protected by the Federal Confidentiality of Alcohol and Drug AbusePatient Records regulations: The Federal rules restrict any use of the information to criminally investigate or prosecute any alcohol or drug abuse patient.[facility] Encounter Details DateTypeDepartmentCare Team (Latest Contact Info)Xulmfcsupxx12/18/2025 Patient Msg Medical Records [address] [place] [address] (Hist), No Pcp Update for Our Medicare Patients Regarding Virtual Visits Social History Tobacco UseTypesPacks/DayYears UsedDateSmoking Tobacco: NeverSmokeless Tobacco: NeverAlcohol UseStandard Drinks/WeekCommentsNo0 (1 standard drink = 0.6 oz pure alcohol)Area Deprivation IndexAnswerDate RecordedNational Score (1-100), lower number is lower anou576104/04/2024State Score (1-10), lower number is lower risk9 04/04/2024ata from: https://www.neighborhoodatlas.medicine.[facility].edu/. Last address used for [address]4CommentsNoSex and Gender InformationValueDate RecordedSex Assigned at BirthNot on fileLegal Sex Taswkd8210/23/2012 8:38 AM ESTGender IdentityNot on fileSexual OrientationNot on filedocumented as of this encounter Plan of Treatment Not on file documented as of this encounter Visit Diagnoses Not on filedocumented in this encounter Care Teams Team MemberRelationshipSpecialtyStart DateEnd Date (Hist), No Pcp PCP - Bfhcbpw33/14/17 Corey Chacon MD [place] Referring TeamNeurosurgery03/24/24documented as of this encounter
--- OUTSIDE RECORDS SUMMARY | 2025-10-17 11:14 | XMS_ITS | Clinical Summary ---
Author Organization [facility] Address [address] [place] [address] Care Team Providers Care Flooring Salesperson Name Role Phone Bia Cao MD Primary Care Provider [phone] Bia Cao MD Unavailable Allergies Active AllergyReactionsCriticalityNoted DateCommentsAspartameUnknownLow 02/12/2017 migraines Amoxicillin-Pot UbqvgwfqedfGnoyNxv58/14/2023Clavulanic WvjaPdenRpa63/24/2017 NukksifriIctuZfx16/24/2017Egg Protein-Containing Drug ProductsSwelling,Unknown 08/14/2011 Says about 1964? and only one arm affected. No rash, hives, or trouble breathing QtllclypbeubGuinlvxHjhs02/11/2021 fainting Influenza HhktjyllPygsBja10/14/2023 Grown on eggs LincomycinAnaphylaxis,MwsmEiik48/23/2011Lincomycin TfkOzczlvc35/10/2022Other DtqapzbbJvpwiw20/24/4171DedndffuqviNpxdLnw50/14/2023Poultry Meal03/02/2023Sulfa WgzbmrthzsoGvgnfPztbce95/21/2022ulfamethoxazole-WpnlxvuktmasObdmz27/01/2023 Wound Dressing HsvkkqhtTadeZfc59/14/2023 Medications MedicationSigDispense QuantityRefillsLast FilledStart DateEnd DateStatus fexofenadine (Ally Allergy) 180 MG tablet 1 (one) time each day at the same timeActive cholecalciferol (Vitamin D-3) 25 MCG (1000 UT) tablet 1,000 Units in the morning. Take before meals.Active Calcium Carb-Cholecalciferol 600-20 MG-MCG tablet Take 600 mg by mouth at bedtimeActive aspirin 81 MG EC tablet Take 81 mg by mouth in the morning.Active Ascorbic Acid (vitamin C) 1000 MG tablet 1 (one) time each day at the same timeActive multivitamin with minerals (Centrum) 9-200 mg-mcg tablet split tablet Active MAGNESIUM PO Take 500 mg by mouth in the morning.Active levothyroxine (Synthroid, Levoxyl) 150 MCG tablet 02/10/2023ctive Lactobacillus (Florajen Women) capsule Active buprenorphine (Butrans) 7.5 MCG/HR Place 1 patch on the skin 1 (one) time per weekActive fluticasone (Flonase) 50 MCG/ACT nasal spray Indications:Allergic rhinitis due to pollen, unspecified seasonalityAdminister 1-2 sprays into each nostril in the morning. Shake gently. Before first use, prime pump.After use, clean tip and replace cap.. 16 g ctive methocarbamol (Robaxin) 500 MG tablet Take 1,000 mg by mouth at nusnnuh1104/19/2024ctive hydrALAZINE (Apresoline) 50 MG tablet Take 50 mg by mouth Only if bp is above 170, an hour after taking 100mg hydralazine.Active amitriptyline (Elavil) 50 MG tablet Indications:Primary insomniaTake 1 tablet (50 mg) by mouth at bedtime 90 tablet 4Active fenofibrate (Triglide) 160 MG tablet Indications:Hyperlipidemia, unspecified hyperlipidemia typeTake 1 tablet (160 mg) by mouth in the morning. 40 tablet 1114Active ferrous sulfate 325 (65 Fe) MG tablet Indications:Anemia, unspecified typeTake 1 tablet (325 mg) by mouth in the morning and 1 tablet (325 mg) in the evening. Take with meals. 200 tablet 5011/29/2025ctive famotidine (Pepcid) 20 MG tablet Indications:Gastroesophageal reflux disease without esophagitisTake 1 tablet (20 mg) by mouth at bedtime 90 tablet 506Active atorvastatin (Lipitor) 40 MG tablet Indications:Mixed hyperlipidemiaTake 1 tablet (40 mg) by mouth Daily 90 tablet 5Active escitalopram (Lexapro) 20 MG tablet Indications:AnxietyTake 1 tablet (20 mg) by mouth in the evening. Take with meals 100 tablet 506Active romosozumab (Evenity) 105 MG/1.17ML prefilled syringe Inject 210 mg under the skin every 30 (thirty) daysActive oxybutynin XL (Ditropan-XL) 10 MG 24 hr tablet Indications:Stress incontinence of urineTake 1 tablet (10 mg) by mouth Daily 90 tablet 5Active carvedilol (Coreg) 25 MG tablet Indications:Essential hypertensionTake 1 tablet (25 mg) by mouth in the morning and 1 tablet (25 mg) before bedtime. 180 tablet 6Active hydrALAZINE (Apresoline) 100 MG tablet Indications:Essential hypertensionTake 1 tablet (100 mg) by mouth in the morning. 90 tablet 6Active zafirlukast (Accolate) 20 MG tablet Indications:Moderate persistent asthma, unspecified whether complicated (HCC) Take 1 tablet (20 mg) by mouth in the morning and 1 tablet (20 mg) before bedtime. 180 tablet 5Active Ubrelvy 100 MG tablet Take 1 tablet by mouth Daily as needed (migraine)5Active CRANBERRY CONCENTRATE PO Take 1 tablet by mouth in the morning.Active lisinopril-hydroCHLOROthiazide 20-12.5 MG tablet Indications:Essential hypertensionTake 1 tablet by mouth in the morning. 90 tablet 5Active albuterol HFA 90 mcg/act inhaler Indications:Mild intermittent asthma without complication (HCC)Inhale 2 puffs every 4 (four) hours if needed for shortness of breath or wheezing 18 g 5Active omeprazole (PriLOSEC) [address] capsule Indications:Gastroesophageal reflux disease without esophagitisTake 1 capsule by mouth in the morning 100 capsule 5Active Additional Information Patient taking differently:40 mg Oral Daily,Morning, Reported on 10/09/2025 mirtazapine (Remeron) 15 MG tablet Indications:Primary insomnia,Major depressive disorder, single episode, in full remissionTake 1 tablet (15 mg) by mouth at bedtime 90 tablet 5Active mirtazapine (Remeron) 15 MG tablet Indications:Primary insomnia,Major depressive disorder, single episode, in full remissionTAKE 1 TABLET BY MOUTH AT BEDTIME 90 tablet Discontinued(Reorder) Active Problems ProblemNoted DateDiagnosed DateFamily history of breast cancer in mother 01/23/2025Family history of malignant neoplasm of breast in second degree female relative diagnosed before 50years of age0301/23/2025Family history of malignant neoplasm of ovary in second degree eecidflw23/04/2025Midline fhhypwdjs95/04/2025 Lung upiixr3202/15/2024rain vnizzy8902/15/2024History of tqoecnd8411/04/2023rimary fzectgli21/14/2023Nocturnal leg kkvico4406/04/2023ge-related osteoporosis without current pathological bziphgus30/14/2023 Assessment & Plan (07/10/2025 2:27 PM EDT): Orders: Vitamin D 25 hydroxy; Future Stage 3b chronic kidney disease (CKD)06/04/2023 Assessment & Plan (07/10/2025 2:27 PM EDT): Orders: CBC and differential; Future Comprehensive metabolic panel; Future Bilateral bcrnfvsyzdcqaij94/11/2023Primary osteoarthritis of right knee 09/17/2021Gastroesophageal reflux disease without zogtbrwawll02/25/59707ok degree AV block06/10/2021Mixed stress and urge urinary pihvshivkbsh52/08/2020 Major depressive disorder, single episode, in full ljiydkpkd24/03/2019 Assessment & Plan (07/10/2025 2:27 PM EDT): Orders: CBC and differential; Future Acquired fvjzjgcuyzawna13/08/2019Chronic idiopathic eqrbncjftlnj92/19/2019 Assessment & Plan (07/11/2025 9:31 AM EDT): Recommend metamucil Balance rqixxko0906/12/2019Bilateral occipital mktvaqags49/11/2019Essential tremor 12/12/2018History of bvvokjdkjc36/08/2018Trochanteric bursitis of both hips 11/03/2017Recurrent falls11/01/2017Other specified depressive oxrnlkyg19/24/2017 Herniation of lumbar intervertebral disc with zpojjrrxyxjxx38/16/2017 Degeneration of lumbosacral intervertebral disc08/14/20167750Nbwmfi80/05/2016 Assessment & Plan (07/11/2025 9:31 AM EDT): stable History of lumbar vooubi1412/11/20158300Aorgjsypnsxzwz94/18/2015Essential hypertension 03/13/2013 Overview (06/04/2023): Managed by dr cifuentes Spinal stenosis of lumbar rjvmiu8508/14/2011 Overview (06/04/2023): Added automatically from request for surgery [id number] Added automatically from request for surgery [id number] Impingement syndrome of right dsbuqkxi90/23/2011 Resolved Problems ProblemNoted DateDiagnosed DateResolved DateMigraine without status migrainosus, not vkutzzwcjcz25Lumbago with sciatica, right side06/04/2023 10/24/2023djustment disorder with gmapulf66ervical spondylosis without dfwukaqhao13 Overview (06/04/2023): Added automatically from request for surgery [id number] Age related gtuxbngliwiv81isc displacement, fpeywx8805/05/2019 10/24/2023 Overview (06/04/2023): Added automatically from request for surgery [id number] 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 Encounters DateTypeDepartmentCare LgapKlbymmuvive45/18/2025 9:15 AM ESTOffice Visit [facility] [address] [place] [phone] Rodolfo Christianson, DPAdali Dermatophytosis of nail (Primary Dx); Dystrophic nail; Pain around toenail, right foot10/09/2025[facility] [address] [place] [phone] Rodolfo Christianson DPM 10/09/20258149Ndsumr09/29/2025[facility] [address] [place] [phone] Bia Cao MD Primary insomnia; Major depressive disorder, single episode, in full zspmebocj59/25/2025[facility] [address] [place] [phone] Olya Hardy NP Primary insomnia; Major depressive disorder, single episode, in full wyexhwkjy47/03/2025[facility] [address] [place] [phone] Bia Cao MD Gastroesophageal reflux disease without esophagitisfrom Last 3 Months Immunizations ImmunizationAdministration DatesNext DueInfluenza, High Dose Seasonal, Preservative Free09/17/2020Influenza, injectable, quadrivalent, preservative free08/29/2018Influenza, recombinant, quadrivalent, injectable, preservative free08/30/2019Influenza, seasonal, injectable, preservative free08/22/2015 Moderna SARS-CoV-2 Ennlkwigtqe08/20/2021,1Pneumococcal Conjugate PCV 13 11/12/2020Pneumococcal Polysaccharide JTCL6271,08/31/2003RSV, recombinant, protein subunit RSVpreF, adjuvant reconstitu, 120mcg/0.5mL, PF (Arexvy)10/26/2024Td (adult), 5 Lf tetanus toxoid, preservative free, adsorbed 08/21/2011Zoster, live11/22/2009 Family History Medical HistoryRelationNameCommentsArthritisFatherRobert HawkAsthmaFatherRobert HawkCOPDFatherRobert HawkCancerFatherRobert HawkAlcohol abuseFather's Brother 1 Jesús BeardkCOPDFather's Brother 2Stewart HawkCancerMotherNellie HawkHypertension MotherNellie HawkCancerMother's Sister 1Zoe KnessCancerMother's Sister 2Maye PughCancerMother's Sister 3Cloe HughesEarly natural deathMother's Sister 4Dana PittengerStrokePaternal GrandfatherHoward HawkDiabetesPaternal GrandmotherFaye HawkHearing lossPaternal GrandmotherFaye HawkStrokePaternal GrandmotherFaye Hawk Drug abuseNeg HxMental illnessNeg HxRelationNameStatusCommentsFatherRobert Hawk DeceasedFather's Brother 1Donald HawkFather's Brother 2Stewart HawkMotherNellie HawkDeceasedMother's Sister 1Zoe KnessMother's Sister 2Maye PughMother's Sister 3Cloe HughesMother's Sister 4Dana PittengerPaternal GrandfatherHoward Hawk Paternal GrandmotherFaye Hawk Social History Tobacco UseTypesPacks/DayYears UsedDateSmoking Tobacco: NeverSmokeless [...] times a week04/02/2024How often do you attend muslim or orthodox services?More than 4 times per year 04/02/2024o you belong to any clubs or organizations such as muslim groups, unions, fraternal or athletic groups, or school groups?Yes04/02/2024How often do you attend meetings of the clubs or organizations you belong to?More than 4 times per year4Are you , , , , never , or living with a partner?Esolxpp7804/02/2024UDIT-CAnswerDate RecordedQ1: How often do you have a [...] and heating?Not very hard04/02/2024HQ-2AnswerDate RecordedPatient Health Questionnaire-2 Tcmhk700[facility] [place] [facility] - Occupational Stress QuestionnaireAnswerDate [...] sleep or slept in ashelter (including now)?No 4CommentsUnknownSex and Gender InformationValueDate RecordedSex Assigned at BirthNot on fileLegal ZhdYrokcx87/15/2023 7:26 PM EDTGender Identity Not on fileSexual OrientationNot on file Last Filed Vital Signs Vital SignReadingTime TakenCommentsBlood Wyeolbut166/68007/10/2025 1:02 PM EDT Itccs700607/10/2025 1:02 PM EBJGkfjpskykvv81.3 ??C (97.4 ??F)01/23/2025 4:22 PM ESTRespiratory Sgsz480607/10/2025 1:02 PM EDTOxygen Zwptidaykd95%07/10/2025 1:02 PM EDTInhaled Oxygen Concentration--Uegnxa08.9 kg (136 lb 6.4 oz)10/09/2025 9:27 AM KAZPzfyht403 cm (5' 3 )10/09/2025 9:27 AM ESTBody Mass Index24.16112/09/2024 9:27 AM EST Plan of Treatment DateTypeDepartmentCare Team (Latest Contact Info)Lykizrkblzy87/17/2025 1:40 PM ESTOffice Visit [facility] [address] [place] [phone] Bia Cao MD [address] [place], [place] [phone] 04/08/2026 10:15 AM EDTOffice Visit [facility] [address] [facility] [phone] Rodolfo Christianson DPM [address] [place], [place] [phone] Health MaintenanceDue DateLast DoneCommentsCOVID-19 Vaccine ( season) 6112/01/2024, 03/12/2021, 03/11/2021, Additional history exists Pneumococcal Vaccine: 65+ PgufsYcvymvpoi59/22/2020, 08/13/2015, 08/31/2003 Influenza XmnvqhjAkunwyiim25/10/2025, 09/17/2020, 08/30/2019, Additional history exists Goals GoalPatient Goal TypeAssociated ProblemsRecent ProgressPatient-Stated?Author Help patient manage antidepressant medication Care PlanPatient on antidepressant monitoring planBia Deleon MD Additional Health Concerns Active ProblemsNoted DateDiagnosed DatePatient on antidepressant monitoring plan 08/08/2024 Insurance * Guarantor: Angela Ruth TypeRelation to PatientDate of BirthPhone Billing AddressPersonal/RwrptqSung1945 [address] [facility] [address] Care Teams Team MemberRelationshipSpecialtyStart DateEnd Date Bia Cao MD [address] [place] [address] [facility] Bia Cao MD [address] [place] [address] PCP - [employer]11/22/21
--- OUTSIDE RECORDS SUMMARY | 2025-10-17 11:14 | XMS_ITS | Clinical Summary ---
Author Organization [place] [facility] tem Address [id number] [address] [place] [address] Care Team Providers Care Steam Shovel Oiler Name Role Phone Bia Cao MD Primary Care Provider [phone] Allergies Active AllergyReactionsCriticalityNoted BohgWetmdyhrJlimtfscFlxlib60/14/2016 States causes blisters/even paper tape AspartameOther (See Comments)Low02/12/2017 migraines Amoxicillin-Pot GtbfbkmakbeZigwJzs00/14/2016 Tolerated cefazolin in June of 2021. Clavulanic YfodMackWva64/24/8451UpjmkkqidAsceNir22/24/2017OxaprozinRashLow 11/04/2016Eggshell AninzrcpVyqlvv75/14/2016 States medications grown on/flu shot arm swelled when exposed to egg shell TpgvqhacocikSqjvcfrjrnrXusm86/11/2021 fainting Influenza Virus UahovrasFtwdghaeXarfxv97/24/2017LincomycinAnaphylaxisHigh 11/04/20165817VmfqefrhgssgPlxxrorttttYtey79/24/2017OtherOther (See Comments) 6851BisausrjaceTuduIqy39/14/2016 Tolerated cefazolin in June of 2021. Prgvgco1303/02/2023Sulfa (Sulfonamide Antibiotics)KsqueJdzyxz68/21/2022 Sulfamethoxazole-AauctsslxxszCpagj88/01/4761Vlblyayg-5-Up4 Antimigraine Agents High02/19/2025 History of cardiovascular and cerebrovascular disease. Triptans increase stroke risk. Medications * This document contains information received from the source organization and may not represent a complete record from that organization. MedicationSigDispense QuantityRefillsLast FilledStart DateEnd DateStatus escitalopram (LEXAPRO) 20 mg tablet Indications:major depressive disorderTake 1 tablet (20 mg total) by mouth daily with dinner Indications: major depressive disorder.Active calcium carbonate-vitamin D3 600 mg(1,500mg) -800 units tablet Indications:prevention of vitamin D deficiencyTake 600 mg by mouth nightly Indications: prevention of vitamin D deficiency.Active cholecalciferol, vitamin D3, (VITAMIN D3) 1,000 units tablet Indications:vitamin D deficiency1 tablet (1,000 Units total) before breakfast Indications: low vitamin D levels.Active magnesium 250 mg tablet Indications:for migraine preventionTake 2 tablets (500 mg total) by mouth in the morning. Indications: for migraine prevention. At supper time.Active therapeutic multivitamin (THERAGRAN) tablet Take 1 tablet by mouth daily with dinner.Active fexofenadine (RALPH) 180 mg tablet Take 1 tablet (180 mg total) by mouth daily with breakfast.Active albuterol (PROVENTIL HFA;VENTOLIN HFA) 90 mcg/actuation inhaler Inhale 2 puffs every 4 (four) hours as needed for wheezing or shortness of breath. PRO AIRActive oxybutynin XL (DITROPAN-XL) 10 mg 24 hr tablet Take 1 tablet (10 mg total) by mouth daily with breakfast.11/21/2020Active zafirlukast (ACCOLATE) 20 mg tablet Take 1 tablet (20 mg total) by mouth in the morning and 1 tablet (20 mg total) before bedtime.10/18/2021ctive aspirin 81 mg Take 1 tablet (81 mg total) by mouth in the morning.Active acetaminophen (TYLENOL EXTRA STRENGTH) 500 mg tablet Take 2 tablets (1,000 mg total) by mouth every 6 (six) hours as needed for pain. Active wljyiiu-ygzvwfabdrkei-bhfwsjpq (EXCEDRIN MIGRAINE) 250-250-65 mg per tablet Take 1 tablet by mouth every 6 (six) hours as needed for headaches.Active atorvastatin (LIPITOR) 40 mg tablet Take 1 tablet (40 mg total) by mouth in the morning.03/15/2022ctive carvediloL (COREG) 25 mg tablet Indications:Essential hypertensionTake 1 tablet (25 mg total) by mouth in the morning and 1 tablet (25 mg total) before bedtime. 180 tablet ctive ascorbic acid (VITAMIN C) 500 mg tablet Take 2 tablets (1,000 mg total) by mouth in the morning.Active L.acidoph/B.animalis/B.longum (FLORAJEN DIGESTION ORAL) Take 1 tablet by mouth in the morning.Active fenofibrate (LOFIBRA) 160 mg tablet Take 1 tablet (160 mg total) by mouth nightly.Active lisinopril-hydroCHLOROthiazide (ZESTORETIC) 20-12.5 mg per tablet Indications:Essential hypertensionTake 1 tablet by mouth in the morning. 90 tablet ctive buprenorphine (BUTRANS) 7.5 mcg/hour patch weekly Place 1 patch on the skin once a week.07/20/2023ctive omeprazole (PriLOSEC) 40 mg capsule Indications:Gastroesophageal reflux disease, unspecified whether esophagitis presentTake 1 capsule (40 mg total) by mouth in the morning. 180 capsule ctive famotidine (PEPCID) 20 mg tablet Take 1 tablet (20 mg total) by mouth nightly. 90 tablet ctive hydrALAZINE (APRESOLINE) 100 mg tablet Indications:Essential hypertensionTake one twice a day may take an additional 50mg daily if Systolic BP is greater than 170 60 tablet ctive Additional Information Patient taking differently: Take one a day may take an additional 50mg daily if Systolic BP is greater than 170, Reported on 09/25/2025 methocarbamoL (ROBAXIN) 500 mg tablet Take 2 tablets (1,000 mg total) by mouth.04/19/2024ctive ferrous sulfate (FeroSuL) 325 (65 FE) mg tablet Take 1 tablet (325 mg total) by mouth in the morning and 1 tablet (325 mg total) in the evening. Take with meals. TAKE 1 TABLET BY MOUTH EVERY MORNING AND 1 TABLET EVERY EVENING WITH MEALS. 60 tablet ctive mirabegron (MYRBETRIQ) 50 mg tablet extended release 24 hr Take 1 tablet (50 mg total) by mouth in the morning. 30 tablet 5Active UBRELVY 100 mg tablet Indications:Migraine without aura and without status migrainosus, not intractableTake 100 mg by mouth once as needed (migraine) for up to 1 dose. 16 tablet 1205Active amitriptyline (ELAVIL) 50 mg tablet Indications:Migraine without aura and without status migrainosus, not intractable,Psychophysiological insomniaTake 1 tablet (50 mg total) by mouth nightly. 90 tablet 5Active levothyroxine (SYNTHROID, LEVOTHROID) 150 MCG tablet Indications:Hypothyroidism, unspecified type6 days a week 90 tablet 5Active Active Problems ProblemNoted DateDiagnosed OrcoZhdvrzsceosz36/15/2025Urge llhnvuttrmdf70/08/2024 Overview (06/13/2025): 08/29/2024: Urge incontinence. Multifactorial including her back issues, constipation, caffeine consumption. Recommended decreasing caffeine as well as addressing constipation with frtb-blu-etlzioi agents. If no improvement can add beta [...] methenamine, or a prophylactic antibiotic. Acute kidney xaoyrq2803/02/20239049Xvyulwsvmra96/11/2023idney qbsamq0003/02/2023 Overview (06/13/2025): 06/13/25: CT 02/13/2025 showed a few small stones in the right kidney. We will check with a KUB in January 2026 Acquired qyjmbyrrusdyps81/11/2023Cervical spondylosis without myelopathy 04/01/2022 Overview (04/01/2022): Added automatically from request for surgery [id number] Carpal tunnel xsvsynsi05/07/2021Gastroesophageal reflux disease without pebyrrebbhr96/25/2021Postoperative cerebrospinal fluid leak1Diastolic /02/2021LVH (left ventricular hypertrophy)05/23/2021Hypotension due to drugs05/23/20218676Eqrotqtewnf80/07/2020Cervical miisveqawbcpr05/07/2020Chronic wqqydjoamy69/02/2020Disorder of nxmksg5805/01/2020 Overview (05/01/2020): Added automatically from request for surgery [id number] SOB (shortness of breath)11/06/2019Major depressive disorder, single episode, in full sljytuzdm83/03/2019Chronic idiopathic ifvlisddzkwy71/19/2019Balance problem 06/12/2019Nocturnal muscle spasm06/12/2019Disc displacement, nggsqj5205/05/2019 Overview (05/05/2019): Added automatically from request for surgery [id number] Spinal stenosis of lumbar hieher5905/05/2019 Overview (05/05/2019): Added automatically from request for surgery [id number] Trapezius muscle spasm05/05/20191578Bwfqjil01/03/2019 Overview (03/29/2019): Added automatically from request for surgery [id number] Bilateral occipital sdewrllsk05/11/2019Psychophysiological ndwqguok65/21/2019 Migraine without aura and without status migrainosus, not anbvfqongsu24/21/2019 Essential yuvruz7012/12/2018Lumbosacral spondylosis without kcbuoysibn89/02/2019 Overview (11/23/2018): Added automatically from request for surgery [id number] Preop cardiovascular exam05/02/2018Chronic pain mwjisbfx81/08/2018History of rejwioiirw95/08/2018Spinal stenosis of lumbar region without neurogenic qmwlklokmoon25/04/2018 Overview (02/23/2018): Added automatically from request for surgery [id number] Chronic left-sided low back pain01/27/2018Bilateral hip pain12/02/2017 Overview (12/02/2017): Added automatically from request for surgery [id number] Trochanteric bursitis of both hips11/03/2017Hip pain, nystlbkkn24/22/2017 Sacrococcygeal disorders, not elsewhere mgbuojbzae09/24/2017Other specified depressive epeqfsll84/24/2017Other intervertebral disc displacement, lumbar ryjkkq6202/12/2017Herniation of lumbar intervertebral disc with radiculopathy 01/14/2017Lumbar herniated disc01/07/2017Lumbar spinal iufyjpwd03/14/2016 Zvyiislg51/14/2016Midline low back pain with right-sided elexntrw61/11/2016Other totzjmiwavjjxy95/18/2015Essential waqrygursovb21/22/2013DDD (degenerative disc disease), lokzvr4108/14/2011 Overview (06/22/2018): Overview: L3-4, L4-5 Impingement syndrome of right ocqzvvow61/23/2011Radicular leg pain08/14/2011DDD (degenerative disc disease), ehzwpf4008/14/2011 Overview (06/23/2021): L3-4, L4-5 PONV (postoperative nausea and vomiting)Prolonged emergence from general anesthesiaHyperlipidemia Resolved Problems ProblemNoted DateDiagnosed DateResolved DateSDH (subdural hematoma)01/04/2018 07/01/2021 Encounters DateTypeDepartmentCare CqfkKpqynplorgu69/09/2025Results Follow-Up [facility] Department of [facility] [address] [phone] Jovany Johnson MD Yjlfjjh4809/25/2025 3:00 PM ESTInfusion Meggandaphne Joel[facility] - Medical Oncology [address] [place] [phone] Osteoporosis, unspecified osteoporosis type, unspecified pathological fracture presence (Primary Dx)09/24/20259245Ofnlbu15/28/2025Results Follow-Up [facility] Department of [facility] [address] [facility] [address] [place] [phone] Jovany Johnson MD Junyxvs1308/17/2025 1:00 PM EDTInfusion Meggan L [facility] - Medical Oncology [address] [place] [phone] Osteoporosis, unspecified osteoporosis type, unspecified pathological fracture presence (Primary Dx)08/16/20259576Ypsplb99/29/2025 1:00 PM EDTInfusion Meggan L Hunter [facility] - Medical Oncology [address] [place] [phone] Osteoporosis, unspecified osteoporosis type, unspecified pathological fracture presence (Primary Dx)07/20/2025Travelfrom Last 3 Months Immunizations ImmunizationAdministration DatesNext DueCOVID-19, mRNA, LNP-S, PF, 100mcg/0.5mL Dose03/12/2021,02/12/2021Influenza High Dose Preservative Free IM09/17/2020 Influenza, Injectable, quadrivalent (PF)08/29/2018Influenza, Recombinant, Quadrivalent, Injectable, Fjmssnv8709/17/2020,08/30/2019Pneumococcal Conjugate 13-Uulyjf5011/12/2020Td (adult), 5 Lf tetanus toxoid, preservative free, adsorbed 08/21/2011 Family History Medical HistoryRelationNameCommentsArthritisFatherRobert HawkBack ProblemsFather Dre HawkCOPDFatherRobert HawkCancerFatherRobert HawkNeck ProblemsFatherRobert HawkBreast cancerMaternal Aunt 1Maye PughVision lossMaternal Aunt 1Maye Dunham Breast cancerMaternal Aunt 2LoisBreast cancerMaternal Aunt 3Lottie HulitBreast cancerMaternal Aunt 4Cloe HughesBreast cancerMaternal Aunt 5Zoe KnessEarly Maternal Aunt 6Dana PittengerHeart diseaseMaternal GrandfatherWilliam Pittenger Breast cancerMaternal GrandmotherNetta PittengerOvarian cancerMaternal GrandmotherNetta PittengerUterine cancerMaternal GrandmotherNetta PittengerColon cancerMaternal Uncle 1Warren PittengerHeart diseaseMaternal Uncle 2Curtis PittergerHeart diseaseMaternal Uncle 3Waldo PittengerHeart diseaseMaternal Uncle 4Joe PittengerHeart diseaseMaternal Uncle 5Wade PittengerAnesthesia problems MotherNellie HawkMother with N/VBreast cancerMotherNellie HawkColon cancerMother [place] HawkHeart diseaseMotherNellie HawkHypertensionMotherNellie HawkDiabetes Paternal GrandfatherHoward HawkStrokePaternal GrandfatherHoward HawkArthritis Paternal GrandmotherFaye HawkDiabetesPaternal GrandmotherFaye HawkMemory loss Paternal GrandmotherFaye HawkStrokePaternal GrandmotherFaye HawkAlcohol abuse Paternal Uncle 1Donald HawkCOPDPaternal Uncle 1Donald HawkCOPDPaternal Uncle 2 Jluis HawkBleeding DisorderNeg HxClotting disorderNeg HxRelationNameStatus CommentsFatherRobert HawkDeceasedMaternal Aunt 1Maye PughMaternal Aunt 2Lois Maternal Aunt 3Lottie HulitMaternal Aunt 4Cloe HughesMaternal Aunt 5Zoe Kness Maternal Aunt 6Dana PittengerMaternal GrandfatherWilliam PittengerDeceased Maternal GrandmotherNetta PittengerDeceasedMaternal Uncle 1Warren Pittenger Maternal Uncle 2Curtis PittergerMaternal Uncle 3Waldo PittengerMaternal Uncle 4 Ruben PittengerMaternal Uncle 5Wade PittengerMotherNellie HawkDeceasedPaternal GrandfatherHoward HawkDeceasedPaternal GrandmotherFaye HawkDeceasedPaternal Uncle 1Donald HawkPaternal Uncle 2Stewart Hawk Social History Tobacco UseTypesPacks/DayYears UsedDateSmoking Tobacco: NeverPassive Smoke Exposure: PastSmokeless Tobacco: Never Tobacco Cessation:Counseling Given: Not Answered Alcohol UseStandard Drinks/WeekCommentsNo0 (1 standard drink = 0.6 oz pure alcohol)PHQ-2AnswerDate RecordedTotal Qpfhd1615ChildcareAnswerDate JrnvvnjaZiekcaoqsJmvsevf34/05/2019EmploymentAnswerDate RecordedEmploymentUnknown 04/26/2019Hunger ScreeningAnswerDate RecordedWithin the past 12 months we worried whether our food would run out before we got money to buy more.Never True06/13/2025Within the past 12 months the food we bought just didn't last and we didn't have money to get more.Never True06/13/2025Purpose - LifeAnswerDate RecordedPurpose and direction in oxvdCjaokob65/12/2021CommentsNoSex and Gender InformationValueDate RecordedSex Assigned at GljrpZrvxun44/01/2021 10:31 PM EDTLegal GdtCcnadq53/06/2015 11:21 AM EDTGender HfjeqsudUebaup29/01/2021 10:31 PM EDTSexual ZbjrmlhrmoqIlhbdvkx18/01/2021 10:31 PM EDT Last Filed Vital Signs Vital SignReadingTime TakenCommentsBlood Zgoktjwn062/4809/25/2025 3:07 PM EST Sklwz512509/25/2025 3:07 PM KKHRkbgjrcrnwf14.4 ??C (97.5 ??F)09/25/2025 3:07 PM ESTRespiratory Nwal278411/25/2024 3:07 PM ESTOxygen Yqcwyyvktd25%09/25/2025 3:07 PM ESTInhaled Oxygen Concentration--Btncyp01.1 kg (137 lb)09/25/2025 3:07 PM EST Eiwnso101.5 cm (5' 2.01 )09/25/2025 3:07 PM ESTBody Mass Index25.0509/25/2025 3:07 PM EST Plan of Treatment DateTypeDepartmentCare Team (Latest Contact Info)Yuvlxsqvqaw78/05/2025 1:30 PM ESTInfusion [facility] [address] [place] [address] 02/26/2026 1:00 PM EDTOffice Visit [facility] [address] [place] [address] [place] [address] [address] [place] [address] Krishna Kramer MD [facility] [place] [address] Health MaintenanceDue DateLast DoneCommentsZoster (Shingles) Vaccine (2 of 3) DTaP,Tdap and Td Vaccines (1 - Tdap) COVID-19 Vaccine (4 - season)/03/2024, 03/12/2021, 02/12/2021Influenza Peyyehl76/, 09/17/2020, 08/30/2019, Additional history existsDepression Bgayunoij47Fall Risk Dnacsqujp60Tobacco Perfmwkrf21RSV ( or age 60+ yrs)Gahmegppg81/05/2024 Goals GoalPatient Goal TypeAssociated ProblemsRecent ProgressPatient-Stated?Author safe discharge to home Ginna Otto RN Note: Evaluation of progress towards goal: safe transition from hospital to home with support of her friends/neighbors Medical Devices ImplantedTypeAreaManufacturerDevice IdentifierShelf Expiration DateModel / Serial / LotPatch Dura 1x1in Drmtrx-[place] + Clgn Rgnrt Membr Strl - [id number] Implanted:Qty: 1 on 07/03/2021 by [facility]raft[facility]/A: BackSTRYKER [id number]/30/[id number] / / [id number] FusionL2-4 Fusion Procedures Procedure NamePriorityDate/TimeAssociated DiagnosisCommentsCALCIUMRoutine 09/24/2025 9:18 AM EST Osteoporosis, unspecified osteoporosis type, unspecified pathological fracture presence JRXKVQJOkarvtd70/25/2025 8:47 AM EDT Osteoporosis, unspecified osteoporosis type, unspecified pathological fracture presence from Last 3 Months Results * Calcium (09/24/2025 9:18 AM EST) Only the most recent of2 resultswithin the time period is included. ComponentValueRef RangeTest MethodAnalysis TimePerformed AtPathologist Signature CALCIUM9.48.5 - 10.5 mg/dL09/24/2025 2:29 PM [facility] LABORATORYSpecimen (Source)Anatomical Location / LateralityCollection Method / VolumeCollection TimeReceived TimeBloodVenipuncture / Jivudlm1709/24/2025 9:18 AM EST09/24/2025 9:18 AM EST Narrative Authorizing ProviderResult TypeResult StatusJovany VELASCO BLOOD ORDERABLESFinal ResultPerforming OrganizationAddressCity/State/ZIP CodePhone Number [facility] [address] [place] [address], from Last 3 Months Insurance * Guarantor: Angela Ruth TypeRelation to PatientDate of BirthPhone Billing AddressPersonal/JvwzojSoyb1945 [address] [place] [address] Advance Directives TypeDate RecordedPatient RepresentativeExplanationDurable Power of Idea Man 07/16/2021 3:45 PMLiving Will8/ 3:40 PM * Full Code (Latest Code Status on File) Date ActivatedDate InactivatedComments03/02/2023 4:15 AM03/03/2023 3:57 PM * Full Code Date ActivatedDate InactivatedComments07/03/2021 9:57 AM07/10/2021 6:07 PM * Full Code Date ActivatedDate InactivatedComments01/04/2018 4:32 PM2 6:44 PM * Full Code Date ActivatedDate InactivatedComments01/14/2017 8:37 AM01/15/2017 5:28 PM Care Teams Team MemberRelationshipSpecialtyStart DateEnd Date Bia Cao MD [facility]/05/[facility]
--- OUTSIDE RECORDS SUMMARY | 2025-10-17 11:14 | XMS_ITS | Encounter Summary ---
Author Organization [facility] Address [address] [place] [address] Care Team Providers Care Maintenance Aide Name Role Phone Bia Cao MD Primary Care Provider [phone] Bia Cao MD Unavailable Encounter Details DateTypeDepartmentCare Team (Latest Contact Info)Mowqxkabiqy83/18/2025Bamboo flowsheet [facility] [address] [facility] [phone] Rodolfo Christianson, DPAdali [address] [place], [place] [phone] Social History Tobacco UseTypesPacks/DayYears UsedDateSmoking Tobacco: NeverSmokeless Tobacco: Never Comments:Second hand smoke f rom Father Alcohol UseStandard Drinks/WeekCommentsNot Currently0 (1 standard drink = 0.6 oz pure alcohol)caffeine: occasionalSocial Connection and Isolation PanelAnswerDate RecordedIn a typical week, how many times do you talk on the phone with family, friends, or neighbors?More than three times a week04/02/2024How often do you get together with friends or relatives?More than three times a week04/02/2024How often do you attend tenriism or moravian services?More than 4 times per year 04/02/2024o you belong to any clubs or organizations such as tenriism groups, unions, fraternal or athletic groups, or school groups?Yes04/02/2024How often do you attend meetings of the clubs or organizations you belong to?More than 4 times per year04/02/2024re you , , , , never , or living with a partner?Zskjnjh8004/02/2024UDIT-CAnswerDate RecordedQ1: How often do you have a [...] and heating?Not very hard04/02/2024HQ-2AnswerDate RecordedPatient Health Questionnaire-2 Zjlpu839[place] [facility] of Occupational Health - Occupational Stress QuestionnaireAnswerDate [...] InformationValueDate RecordedSex Assigned at BirthNot on fileLegal LakAsagqo36/15/2023 7:26 PM EDTGender Identity Not on fileSexual OrientationNot on filedocumented as of this encounter Plan of Treatment DateTypeDepartmentCare Team (Latest Contact Info)Zngyeaqbxwu28/17/2025 1:40 PM ESTOffice Visit [facility] [address] [place] [phone] Bia Cao MD [address] [place] [address] 04/08/2026 10:15 AM EDTOffice Visit [facility] [address] [place] [address] Rodolfo Christianson, DPAdali [address] [place] [address] documented as of this encounter Goals GoalPatient Goal TypeAssociated ProblemsRecent ProgressPatient-Stated?Author Help patient manage antidepressant medication Care PlanPatient on antidepressant monitoring planNoBia Cao, MDdocumented as of this encounter Visit Diagnoses Not on filedocumented in this encounter Additional Health Concerns Active ProblemsNoted DateDiagnosed DatePatient on antidepressant monitoring plan 4AssessmentNoted TimePHQ-9 Depression Total Score: 7012/06/2023 2:00 PM ESTdocumented as of this encounter Care Teams Team MemberRelationshipSpecialtyStart DateEnd Date Bia Cao MD [address] [place] [address] PCP - GeneralFamily Medicine04/29/23 Bia Cao MD [address] [place] [address] PCP - [employer]11/22/21documented as of this encounter
--- OUTSIDE RECORDS SUMMARY | 2025-10-17 11:14 | XMS_ITS | Encounter Summary ---
Author Organization [facility] Address [address] [place] [address] Care Team Providers Care Learning And Development Manager Name Role Phone Bia Cao MD Primary Care Provider [phone] Bia Cao MD Unavailable Encounter Details DateTypeDepartmentCare Team (Latest Contact Info)Xavdnshgpsi25/18/2025Travel Social History Tobacco UseTypesPacks/DayYears UsedDateSmoking Tobacco: NeverSmokeless [...] times a week04/02/2024How often do you attend jewish or hindu services?More than 4 times per year 04/02/2024o you belong to any clubs or organizations such as jewish groups, unions, fraternal or athletic groups, or school groups?Yes04/02/2024How often do you attend meetings of the clubs or organizations you belong to?More than 4 times per year04/02/2024re you , , , , never , or living with a partner?Pnwjrxu7404/02/2024UDIT-CAnswerDate RecordedQ1: How often do you have a [...] and heating?Not very hard04/02/2024HQ-2AnswerDate RecordedPatient Health Questionnaire-2 Znlck095F[facility] [place] of Occupational Health - Occupational Stress QuestionnaireAnswerDate [...] InformationValueDate RecordedSex Assigned at BirthNot on fileLegal IxgShknau77/15/2023 7:26 PM EDTGender Identity Not on fileSexual OrientationNot on filedocumented as of this encounter Plan of Treatment DateTypeDepartmentCare Team (Latest Contact Info)Gvnsrceahkt14/17/2025 1:40 PM ESTOffice Visit [facility] [address] [place] [phone] Bia Cao MD [address] [place] [address] 04/08/2026 10:15 AM EDTOffice Visit [facility] [address] [place] [phone] Rodolfo Christianson DPAdali [address] [place] [address] documented as of this encounter Goals GoalPatient [...] MemberRelationshipSpecialtyStart DateEnd Date Bia Cao MD [address] [place] [address] PCP - GeneralFamily Medicine04/29/23 Bia Cao MD [address] [place] [address] PCP - [employer]11/22/21documented as of this encounter
--- OUTSIDE RECORDS SUMMARY | 2025-10-17 11:14 | XMS_ITS | Clinical Summary ---
Author Organization [facility] Address [address], [address] [place] [address] Care Team Providers Care Mechanic'S Assistant Name Role Phone Bia Cao MD Primary Care Provider [phone] Allergies Active AllergyReactionsCriticalityNoted DateCommentsAmoxicillin-Pot Clavulanate 08/14/2011Egg RsswsHdtneqix71/23/2011 Says about 1964? and only one arm affected. No rash, hives, or trouble breathing Lincomycin Hcl08/14/20118206Njpcq95/15/2018 FLU VACCINE, egg prep Jgpnghnddki09/23/2011dhesive Tape08/14/2011 Medications MedicationSigDispense QuantityRefillsLast FilledStart DateEnd DateStatus zafirlukast (ACCOLATE) 20 MG tablet Indications:AsthmaTake 20 mg by mouth daily. Indications: AsthmaActive levothyroxine (SYNTHROID) 175 MCG tablet Indications:HypothyroidismTake 150 mcg by mouth daily Indications: Underactive ThyroidActive losartan (COZAAR) 100 MG tablet Indications:HypertensionTake 50 mg by mouth daily Indications: High Blood PressureActive esomeprazole (NEXIUM) 40 MG capsule Indications:Gastroesophageal Reflux DiseaseTake 40 mg by mouth every morning (before breakfast). Indications: Gastroesophageal Reflux DiseaseActive verapamil (CALAN-SR) 240 MG CR tablet Indications:HypertensionTake 120 mg by mouth every 8 hours Indications: High Blood PressureActive propranolol (INDERAL) 20 MG tablet Indications:Migraine ProphylaxisTake 20 mg by mouth 2 times daily. Indications: Treatment to Prevent Migraine HeadachesActive fexofenadine (RALPH ALLERGY) 180 MG tablet Indications:Seasonal AllergyTake 180 mg by mouth daily as neededActive escitalopram (LEXAPRO) 20 MG tablet Indications:DepressionTake 20 mg by mouth daily Takes in afternoonActive fenofibrate (TRIGLIDE) 160 MG tablet Indications:HyperlipidemiaTake 160 mg by mouth daily. Indications: High Amount of Fats in the BloodActive aspirin 81 MG tablet Take 81 mg by mouth daily.Active Multiple Vitamin (MULTIVITAMIN PO) Take by mouth daily.Active Calcium Carbonate-Vitamin D (CALCIUM 600+D PO) Indications:Osteoporosis ProphylaxisTake 600 mg by mouth daily. Indications: Treatment to Prevent OsteoporosisActive amitriptyline (ELAVIL) 100 MG tablet Indications:Migraine ProphylaxisTake 50 mg by mouth nightly Indications: Treatment to Prevent Migraine HeadachesActive acetaminophen (TYLENOL) 500 MG tablet Take 500-1,000 mg by mouth every 6 hours as needed.Active Ipratropium-Albuterol (COMBIVENT IN) Indications:AsthmaInhale 2 puffs into the lungs 4 times daily as needed. Indications: AsthmaActive Topiramate (TOPAMAX PO) Take 100 mg by mouth dailyActive vitamin D 1000 UNITS CAPS Take by mouthActive magnesium gluconate (MAGONATE) 500 MG tablet Take 500 mg by mouth 2 times dailyActive meclizine (ANTIVERT) 25 MG tablet Take 25 mg by mouth 3 times daily as neededActive albuterol sulfate HFA 108 (90 BASE) MCG/ACT inhaler Inhale 2 puffs into the lungs every 6 hours as needed for WheezingActive metoclopramide (REGLAN) 10 MG tablet Take 10 mg by mouth as neededActive DICLOFENAC PO Take 75 mg by mouth daily as needed When gets migrainesActive Auazzkh-Vimxvjmuisnly-Rftpjjek (EXCEDRIN MIGRAINE PO) Take by mouthActive predniSONE (DELTASONE) 5 MG tablet Take 5 mg by mouth daily as neededActive predniSONE (DELTASONE) 20 MG tablet Take 20 mg by mouth daily as needed as directed per PCP today.Active topiramate (TOPAMAX) 200 MG tablet Take 200 mg by mouth nightlyActive atorvastatin (LIPITOR) 40 MG tablet Take 40 mg by mouth dailyActive carvedilol (COREG) 25 MG tablet Take 25 mg by mouth 2 times daily (with meals)Active amLODIPine (NORVASC) 2.5 MG tablet Take 2.5 mg by mouth dailyActive gabapentin (NEURONTIN) 300 MG capsule Take 300 mg by mouth 3 times daily.Active meloxicam (MOBIC) 15 MG tablet Take 15 mg by mouth dailyActive Active Problems ProblemNoted DateDiagnosed DatePrimary osteoarthritis of right knee09/17/2021 Midline low back pain with right-sided okirojon86/11/2016DDD (degenerative disc disease), ccxexm7508/14/2011 Overview (08/14/2011): L3-4, L4-5 Lumbar spinal gixbdyht97/23/2011Left Radicular leg pain08/14/2011Impingement syndrome of right /23/2011 Family History Medical HistoryRelationNameCommentsCOPDFatherHeart DiseaseMaternal Grandfather CancerMaternal Grandmotherbreast cancerCancerMotherrectal cancerTuberculosis MotherDiabetesPaternal GrandmotherRelationNameStatusCommentsFatherDeceased Maternal GrandfatherMaternal GrandmotherMotherDeceasedPaternal Grandmother Social History Tobacco UseTypesPacks/DayYears UsedDateSmoking Tobacco: NeverSmokeless Tobacco: Never Tobacco Cessation:Counseling Given: Not Answered Alcohol UseStandard Drinks/WeekCommentsNo0 (1 standard drink = 0.6 oz pure alcohol)CommentsNoSex and Gender InformationValueDate RecordedSex Assigned at BirthNot on fileLegal BcnNodtgn74/10/2013 5:24 PM ESTGender Identity Not on fileSexual OrientationNot on file Last Filed Vital Signs Vital SignReadingTime TakenCommentsBlood Hawxtctb607/8406 1:15 PM EDT Zlewi8614/25/2018 1:15 PM ZONEjzfjcvanyu82.4 ??C (97.6 ??F)05/16/2018 12:40 PM EDTRespiratory Ttey547012/12/2021 1:21 PM ESTOxygen Xlvudhwmzn65%05/16/2018 12:40 PM EDTInhaled Oxygen Concentration--Kgcwxb74.6 kg (160 lb)04/12/2023 2:44 PM EDT Jujogj287.5 cm (5' 2 )04/12/2023 2:44 PM EDTBody Mass Index29.2605 2:44 PM EDT Plan of Treatment Health MaintenanceDue DateLast WwfuMnetxnhvFjeyqm19/08/1955Depression Screen 1957DEXA (modify frequency per FRAX score)2000Shingles vaccine (2 of 3)DTaP/Tdap/Td vaccine (1 - Tdap) Respiratory Syncytial Virus (RSV) or age 60 yrs+ (1 - 1-dose 75+ series)2020Annual Wellness Visit (Medicare Advantage)11/22/2024Flu vaccine (#1)51, 09/17/2020, 08/30/2019, Additional history exists COVID-19 Vaccine ( - 2024- season)504/, 03/11/2021, 2196EvfgkchdszuDeuqfswbpepx57/16/2018Pneumococcal 50+ years Vaccine Gqstbarrn33/22/2020, 08/13/2015Hepatitis A vaccineAged OutNo longer eligible based on patient's age to complete this topicHepatitis B vaccineAged OutNo longer eligible based on patient's age to complete this topicHib vaccineAged Out No longer eligible based on patient's age to complete this topicMeningococcal (ACWY) vaccineAged OutNo longer eligible based on patient's age to complete this topicMeningococcal B vaccineAged OutNo longer eligible based on patient's age to complete this topicPolio vaccineAged OutNo longer eligible based on patient's age to complete this topic Procedures Procedure NamePriorityDate/TimeAssociated DiagnosisComments COLONOSCOPYRoutine 07/07/2018from Last 3 Months or Most Recently Relevant to Health Maintenance Results * COLONOSCOPY (07/07/2018) Narrative Authorizing ProviderResult TypeResult StatusHistorical Provider MDHEALTH MAINTENANCEFinal Result from Last 3 Months or Most Recently Relevant to Health Maintenance Insurance * Guarantor: Angela Ruth TypeRelation to PatientDate of BirthPhone Billing AddressPersonal/JxcopeJrfn1945 [address] [place] [address] * Guarantor: Angela Ruth TypeRelation to PatientDate of BirthPhone Billing AddressPersonal/IipnoyUkmq[address] [place] [address] Care Teams Team MemberRelationshipSpecialtyStart DateEnd Date Bia Cao MD [address] [place] [address] PCP - General06/16/19
--- OUTSIDE RECORDS SUMMARY | 2025-10-17 11:19 | XMS_ITS | CCD ---
Author Organization [facility] CliniSyma Care Team Providers Care Equipment Service Engineer Name Role Phone LENNY PEDRAZA Unavailable Unavailable AUDREY HORN Unavailable Unavailable AUDREY HORN Unavailable Unavailable LENNY PEDRAZA Unavailable Unavailable NASH, BIA F Primary Care Unavailable NASH, BIA F Primary Care Unavailable Jacob Viveros Unavailable Unavailable Nash GARCIA, Bia Mccormick Primary Care Provider (Hist), No Pcp Primary Care Provider Unavailabl e Oswaldo GARCIA, Corey Castillo Unavailable Oswaldo GARCIA, Corey Castillo Unavailable Jacob Viveros Unavailable Unavailable Nash GARCIA, Bia Anny Primary Care Provider Nash GARCIA, Bia Mccormick Unavailable Nash GARCIA, Bia Anny Primary Care Provider Nash GARCIA, Bia Mccormick Primary Care Provider [phone] JOHN JOHNSON Attending Unavailable NASH, BIA F Referring Unavailable NASH, BIA F Primary Care Unavailable YOANNA DORSEY Attending Unavailable ANSH, BIA F Referring Unavailable NASH, BIA F [...] BIA F Attending Unavailable Giedraitis MD, Andrius Vytsb Attending Unavailable Giedraitis MD, Andrius Vytautas Attending [...] Unavailable NASH, BIA Mccormick Referring Unavailable NASH, BAI Mccormick Primary Care Unavailable GUNDABOLU, JOHN Referring Unavailable NASH, BIA F Primary Care Unavailable NASH, BIA F Referring Unavailable NASH, IBA Mccormick Primary Care Unavailable GUNDABOLU, JOHN Referring [...] Unavailable NASH, BIA F Primary Care Unavailable TYLER JOHNSONASKAR Referring Unavailable BIA CAO Primary Care Unavailable BIA CAO Referring Unavailable BIA CAO Primary Care Unavailable KEANU, JOHN Referring Unavailable BIA CAO Primary Care Unavailable BIA CAO Referring Unavailable BIA CAO Primary Care Unavailable VELASQUEZ, ROSE Referring Unavailable Allergies Allergy ClassificationReported Allergen(s)Allergy TypeDate of OnsetReaction(s) FacilityAmoxicillin / Clavulanate (1 source)Amoxicillin / ClavulanateDrug Jycbclv58-04-5751BfjsDjguqirfx Clinic Aspartame (1 source)AspartameDrug Jyequxa76-02-9729Rboid: See Comments[facility] Clav[facility]anate (1 source)ClavulanateDrug Epmttyf67-47-1521XwsoHzvlndacm Clinicegg white (chicken) allergenic extract (1 source)egg white (chicken) allergenic extractDrug Gybhmoy18-17-5423Gfrdnyyd [facility] HospitalLincomycin (1 source)LincomycinDrug Drokmhe72-63-3744RvzrDsebwmogl ClinicNSAIDs (1 source)oxaprozinDrug Yumrvqu38-95-9258NthhQxdjszxei ClinicPenicillins (antibiotic) (1 source)PenicillinsDrug Kwbdzgs15-78-0153IaaiWrqnlxfmy Clinic (20 sources)Aspartame; Translations: [ASPARTAME]Drug Zgcuvfn15-07-7551Nqhiaqf [facility] (20 sources)Clavulanate; Translations: [CLAVULANIC ACID]Drug Dbadvdl61-51-0218 [facility] (20 sources)Indomethacin; Translations: [INDOMETHACIN]Drug Takfscg97-69-3070 Unknown, [facility] (20 sources)Influenza VaccinesDrug Uwzstmn98-27-4840DowyAFXJ Healthcare (20 sources)Lincomycin; Translations: [LINCOMYCIN]Drug Ynxwmye86-56-7463 Anaphylaxis, [facility] (20 sources)LincomycinDrug Eabordx12-39-5690EqonqdsLCDD Healthcare (20 sources)Penicillins; Translations: [PENICILLINS]Drug Rvpzdxy55-51-6038Exgs [facility] (20 sources)Sulfamethoxazole / Trimethoprim; Translations: [SULFAMETHOXAZOLE-TRIMETHOPRIM]Drug Pvovdfv95-24-2564KtgnrFFNS Healthcare (20 sources)Sulfonamides (Antibiotic)Drug Vzrlaoonmdr36-74-8667OulobBUHL Healthcare (20 sources)Amoxicillin-Pot Clavulanate; Translations: [AMOXICILLIN-POT CLAVULANATE]Drug Qtkmwcn34-93-0956OdivJHFW Healthcare Work Phone: (20 sources)Clemizole; Translations: [CLEMIZOLE]Propensity to adverse reactions 89-57-0222NhzzDBWDBarton County Memorial Hospital (6 sources)Eggs Or Egg-Derived ProductsDrug Zslfhvs76-67-1664Lnzntseq, Unknown [facility] (20 sources)Other; Translations: [OTHER]Propensity to adverse reactions 77-98-8005Roidppko, Other (See Comments)[facility] Work Phone: (20 sources)Poultry MealPropensity to adverse iyjcljvdo34-03-3040ISUD [facility] (20 sources)Wound Dressing AdhesiveDrug Thgoanc96-42-8783OduxTHBH [facility] (20 sources)Adhesive agent; Translations: [ADHESIVE]Drug Qbxzrnf48-09-7750Macfg: See Comments[facility] Hospital Work Phone: (20 sources)AspartameDrug Huexxjk48-54-5378Dmmwj: See Comments, Other (See Comments)[facility] (20 sources)Clindamycin; Translations: [LINCOSAMIDES]Drug Uryeuwo43-44-4919 AnaphylaxisEast [facility] Hospital (6 sources)egg white (chicken) allergenic extract; Translations: [EGG WHITE]Drug Boqvixa09-09-6921VhikybkyDmfwesjqy Clinic (20 sources)oxaprozin; Translations: [OXAPROZIN]Drug Tsmlisc64-03-4828Wfjv [facility] (11 sources)PenicillinsDrug Octmvko55-26-4252PckuQjglbyymw Clinic (20 sources)Influenza Virus Vaccines; Translations: [INFLUENZA VIRUS VACCINES] Drug Fxefskc37-52-9487YurwqjhhPxulmnntu Clinic (20 sources)Egg-Derived ProductsDrug Gxbujyr95-56-7386Jurpztke, UnknownResearch [facility] (20 sources)egg shell membrane; Translations: [EGGSHELL MEMBRANE]Propensity to adverse reactions to dsym35-63-9566YfkPjhvug Health System (13 sources)PenicillinsPropensity to adverse reactions to cyhw23-30-1331Hqns [facility] (16 sources)Iraxsljw-7-Kq8 Antimigraine Agents; Translations: [GAOEXPNX-7-CD0 ANTIMIGRAINE AGENTS]Propensity to adverse reactions to hwov09-37-0795NemKdvgdn Health System (3 sources)chicken allergenic extract; Translations: [POULTRY]Drug Allergy 63-28-5148KhzJwajfg Repository (3 sources)Sulfonamides (Antibiotic); Translations: [SULFA (SULFONAMIDE ANTIBIOTICS)]Propensity to adverse reactions to drug (disorder)11-11-2022 [facility] (5 sources)Adhesive agentPropensity to adverse reactions to yaxf27-79-0517 [facility] (2 sources)Egg Protein-Containing Drug ProductsDrug Asbphpz86-04-8522Yeytyhba, UnknownNOMS [facility] Medications Current Medications MedicationDrug Class(es)DatesSig (Normalized)Sig (Original)acetaminophen [...] mouth every six hours as needed for ovexthgqidgcxuh-qdvazbcciknxw-gwwowhxm (EXCEDRIN MIGRAINE) 250-250-65 mg per tablet Take 1 tablet by mouth every 6 (six) hours as needed for headaches. Activeacetaminophen 325 mg / dichloralphenazone 100 mg / isometheptene 65 mg oral capsule (6 sources)take 1 capsule by mouth every six hours as needed rtebnlubxdejn-zxjkueiuzqtanwwred-vxygnfwwxyujt (MIDRIN) 65-100-325 mg per capsule 1 capsule four times daily as needed. Jsyfgpbbf055759 200 actuat albuterol 0.09 mg/actuat metered dose inhaler (20 sources)beta2-Adrenergic AgonistStart: 06-04-2023 End: 21-68-8196tnnb 2 puff(s) by inhalation every four hours for wheezing albuterol HFA 90 mcg/act inhaler Indications: Mild intermittent asthma without complication (HCC) Inhale 2 puffs every 4 (four) hours if needed for shortness of breath or wheezing 18 g 3 07/10/2025 ActiveStart: 66-21-9713[facility] HFA 90 mcg/actuation inhaler as needed. 0 09/30/2017 Activetake 2 puff(s) by inhalation every four hours as needed for wheezingalbuterol (PROVENTIL HFA;VENTOLIN HFA) 90 mcg/actuation inhaler Inhale 2 puffs every 4 (four) hoursas needed for wheezing or shortness of breath. PRO AIR Activealendronic acid 70 mg oral tablet (20 sources)BisphosphonateStart: 01-25-2024 End: 71-33-0410pbnhafbyqof (FOSAMAX) 70 mg tablet Take 1 tablet (70 mg total) by mouth every 7 days. 01/25/2024 02/12/2025 DiscontinuedStart: 60-07-6580iqsj 1 tablet by mouth every weekalendronate (FOSAMAX) 70 mg tablet Take 70 mg by mouth one time a week. 01/25/2024 Activetake 1 tablet by mouth once dailyalendronate (Fosamax) 35 MG tablet 1 tablet 30 minutes before the first food, beverage or medicine of the day with plain water Orally weekly 0 Activeamitriptyline hydrochloride 50 mg oral tablet (20 sources)Tricyclic AntidepressantStart: 11-17-2023 End: 46-88-3617vdbs 1 tablet by mouth once dailyamitriptyline (ELAVIL) [...] tablet (20 sources)HMG-CoA Reductase InhibitorStart: 10-27-2017 End: 64-46-6330wphb 1 tablet by mouth in the morningatorvastatin (LIPITOR) 40 mg tablet Take 1 tablet (40 mg total) by mouth in the morning. 03/15/2022ctive azithromycin 250 mg oral tablet (2 sources)Macrolide AntimicrobialStart: 01-23-2025 End: 83-24-8474ywot 2 tablets by mouth once daily, then take 1 tablet by mouth once dailyazithromycin (Zithromax) 250 MG tablet Indications: Acute bronchitis, unspecified organism Take 2 tablets (500 mg) by mouth Daily for 1 day, THEN 1 tablet (250 mg) Daily for 4 days. 6 tablet 01/23/2025 01/27/2025 Active benzonatate 200 mg oral capsule (2 sources)Non-narcotic AntitussiveStart: 01-15-2025 End: 16-66-5384czco 1 capsule by mouth three times daily as needed for cough benzonatate (Tessalon) 200 MG capsule Indications: Influenza A Take 1 capsule (200 mg) by mouth 3 (three) times a day as needed for cough for up to 7 days Do not crush or chew. 20 capsule 01/15/2025 01/22/2025 Zimbrj335 hr buprenorphine 0.0075 mg/hr transdermal system (20 sources)Partial Opioid AgonistStart: 25-94-7520xclhl 1 dose transdermal route every weekbuprenorphine (BUTRANS) [...] (20 sources)alpha-Adrenergic To, beta-Adrenergic BlockerStart: 01-12-2024 End: 95-22-5079vixt 1 tablet by mouth oncecarvedilol (Coreg) 25 MG tablet Indications: Essential hypertension (CMS/HCC) Take 1 tablet (25 mg)by mouth every 12 (twelve) hours 200 tablet 3 01/12/2024 ActiveStart: 12-04-2022 End: 30-04-6150ydmm 1 tablet by mouth in the morning, [...] oral tablet (6 sources)Quinolone AntimicrobialStart: 01-26-2025 End: 12-20-0927jgcc 1 tablet by mouth in the morningciprofloxacin (Cipro) 500 MG tablet Indications: Acute cystitis without hematuria Take 1 tablet (500 mg) by mouth in the morning and 1 tablet (500 mg) before bedtime. Do all this for 7 days. 14 tablet 01/26/2025 02/02/2025 ActiveStart: 07-03-2024 End: 29-67-6421evvp 1 tablet by mouth in the morningciprofloxacin (Cipro) 500 MG tablet Indications: Acute cystitis without hematuria Take 1 tablet (500 mg) by mouth in the morning and 1 tablet (500 mg) before bedtime. Do all this for 7 days. 14 tablet 07/11/2024 07/18/2024 ActiveCRANBERRY CONCENTRATE PO (10 sources)take 1 tablet by mouth once dailyCRANBERRY [...] oral tablet (2 sources)Tetracycline-class DrugStart: 08-14-2024 End: 16-73-8240phhuecgdzyu (Vibra-Tabs) 100 MG tablet Indications: Acute bronchitis, [...] tablet (20 sources)Serotonin Reuptake InhibitorStart: 12-15-2023 End: 76-92-2812blqp 1 tablet by mouth at mealtimeescitalopram (Lexapro) [...] tablet (20 sources)Histamine-2 Receptor AntagonistStart: 07-07-2023 End: 16-95-1804icry 1 tablet by mouth once dailyfamotidine (PEPCID) 20 mg tablet Take 1 tablet (20 mg total) by mouth nightly. 90 tablet 3 11/29/2023 Active fenofibrate 160 mg oral tablet (20 sources)Peroxisome Proliferator Receptor alpha AgonistStart: 11-06-2024 End: 59-87-2246lpmj 1 tablet by mouth in the morningfenofibrate (Triglide) 160 MG tablet Indications: Hyperlipidemia, unspecified hyperlipidemia type Take 1 tablet (160 mg) by mouth in the morning. 40 tablet 11 11/06/2024 ActiveStart: 10-26-2023 End: 49-45-7360oirx 1 tablet by mouth in the morningfenofibrate (Triglide) 160 MG tablet Indications: Hyperlipidemia, unspecified hyperlipidemia type (CMS/HCC) Take 1 tablet (160 mg) by mouth in the morning. 100 tablet 3 10/26/2023 Active ferrous sulfate 325 mg oral tablet (20 sources)Start: 01-18-2024 End: 71-76-8032mrka 1 tablet by mouth in the morning, [...] dose nasal spray (20 sources)CorticosteroidStart: 08-23-2023 End: 36-63-6446sqxa 1-2 spray(s) nasal route in the morningfluticasone (Flonase) 50 MCG/ACT nasal spray Indications: Allergic rhinitis due to pollen, unspecified seasonality Administer 1-2 sprays into each nostril in the morning. Shake gently. Before first use, prime pump. After use, clean tip and replace cap.. 16 g 2 08/23/2023 Suprct537 ml glucose 50 mg/ml injection (1 source)Start: 90-49-7119jtux 25 mL intravenously every hour as kenpmp33 mL/hr, intravenous, Continuous PRN, When mainline IV needed., Starting on Wed08/17/25 at 1257, Match IVF to base solution of product being administered to ensure compatibility.hydrALAZINE hydrochloride 100 mg oral tablet (20 sources)Arteriolar VasodilatorStart: 07-26-2023 End: 72-38-7351qgvyCOUDWAJ (APRESOLINE) 100 mg tablet Indications: Essential hypertension [...] Diuretic, Angiotensin Converting Enzyme InhibitorStart: 12-06-2023 End: 53-11-7551wszv 1 tablet by mouth in the morninglisinopril- [...] with radiology test) (2 sources)Start: 09-26-2024 End: 07-53-8405fvdilj 1 dose intravenously onceiv contrast (will be [...] 1 Each 09/26/2024 09/27/2024 ActiveStart: 05-09-2024 End: 72-36-2463fvkuqc 1 dose intravenously onceiv contrast (will be [...] mg oral tablet (20 sources)l-ThyroxineStart: 01-21-2018 End: 11-66-6208mqntlqpcbpoly (SYNTHROID, LEVOTHROID) 150 MCG tablet Indications: Hypothyroidism, [...] 500 mg oral tablet (20 sources)Muscle RelaxantStart: 44-96-5722lqtqnjwqfrqsQ (ROBAXIN) 500 mg tablet Take 2 tablets (1,000 mg total) by mouth. 04/19/2024 Activemetoclopramide 10 mg oral tablet (6 sources)Dopamine-2 Receptor Antagonisttake 1 tablet by mouth every six hours as neededmetoclopramide HCl (REGLAN) 10 mg tablet Take 10 mg by mouth every 6 hours as needed. Rafhfz24 hr mirabegron 50 mg extended release oral tablet (20 sources)beta3-Adrenergic AgonistStart: 28-76-6619qnkm 1 tablet by mouth every twenty-four hours in the morningmirabegron (MYRBETRIQ) 50 mg tablet extended release 24 hr Take 1 tablet (50 mg total) by mouth in the morning. 30 tablet 12/19/2024 Activemirtazapine 15 mg oral tablet (20 sources)Start: 09-15-2025 End: 75-07-3133iocc 1 tablet by mouth at bedtimemirtazapine (Remeron) 15 MG tablet Indications: Primary insomnia , Major depressive disorder, single episode, in full remission Take 1 tablet (15 mg) by mouth at bedtime 90 tablet 11 09/19/2025 ActiveStart: 12-26-2024 End: 32-54-4598rhls 1 tablet by mouth at bedtimemirtazapine (Remeron) [...] release oral capsule (20 sources)Proton Pump InhibitorStart: 11-29-2023 End: 03-07-4569lsop 1 capsule by mouth in the morningomeprazole (PriLOSEC) [address] capsule Indications: Gastroesophageal reflux disease without esophagitis Take 1 capsule by mouth in the morning 100 capsule 11 07/25/2025 ActiveStart: 96-92-1055vcmgfjbgpm (PRILOSEC) 20 mg capsule 20 mg once daily. 12/02/2016 Activeoseltamivir 75 mg oral capsule (2 sources)Neuraminidase InhibitorStart: 01-15-2025 End: 99-29-0486wabh 1 capsule by mouth in the morningoseltamivir (Tamiflu) 75 MG capsule Indications: Influenza A Take 1 capsule (75 mg) by mouth in themorning and 1 capsule (75 mg) before bedtime. Do all this for 5 days. 10 capsule 01/15/2025 01/20/2025 Ozaoco79 hr oxybutynin chloride 10 mg extended release oral tablet (20 sources)Cholinergic Muscarinic AntagonistStart: 11-21-2020 End: 48-63-2563hpew 1 tablet by mouth once daily at breakfastoxybutynin XL (DITROPAN-XL) 10 mg 24 hr tablet Take 1 tablet (10 mg total) by mouth daily with breakfast. 11/21/2020 ActiveStart: 11-21-2020 End: 20-54-1961pksf 1 tablet by mouth every twenty-four hoursoxybutynin ER (DITROPAN XL) 10 mg 24 hr tablet Take 10 mg by mouth. 11/21/2020 Active polyethylene glycol 3350 10318 mg powder for oral solution (3 sources)Osmotic LaxativeStart: 07-10-2024 End: 22-97-8320qdqufqxdbdli glycol, PEG, 3350 (MiraLax) 17 GM/SCOOP powder Indications: Chronic idiopathic constipation Take 17 g by mouth Daily for 3 days 527 g 2 07/10/2024 07/13/2024 ActivepredniSONE 10 mg oral tablet (4 sources)Start: 01-23-2025 End: 10-94-0858towp 1 tablet by mouth four times daily, [...] 20 tablet 01/23/2025 01/30/2025 ActiveStart: 08-14-2024 End: 23-49-7367bnwj 1 tablet by mouth once dailypredniSONE (Deltasone) 20 MG tablet Indications: Acute bronchitis, unspecified organism Take 1 tablet (20 mg) by mouth Daily for 5 days 5 tablet 08/14/2024 08/19/2024 Lzcexr5900 ml sodium chloride 9 mg/ml injection (1 source)Start: 19-92-3165pzkd 25 mL intravenously every hour as lfermc49 mL/hr, intravenous, Continuous PRN, When mainline IV [...] Activetopiramate 100 mg oral tablet (6 sources)Start: 02-93-7092hbklwztxod (TOPAMAX) 100 mg tablet 300 mg once daily. 100 mg in the A.M and 200 at bedtime 0 12/21/2017 Activeubrogepant 100 mg oral tablet (20 sources)Start: 01-07-2024 End: 63-97-8402kjuw 1 tablet by mouth every twenty-four hours as neededUbrelvy 100 MG tablet Take 1 tablet by mouth Daily as needed (migraine) 02/26/2025 Activeverapamil hydrochloride 120 mg extended release oral tablet (6 sources)Calcium Channel BlockerStart: 66-76-4584xshqkdsls SR (CALAN SR, ISOPTIN SR) 120 mg CR tablet 1 tablet three times daily. 12/27/2017 Active zafirlukast 20 mg oral tablet (20 sources)Leukotriene Receptor AntagonistStart: 01-07-2018 End: 48-23-5055kfey 1 tablet by mouth in the morning, [...] Central Nervous System Stimulant, MethylxanthineStart: 04-23-2023 End: 19-18-2565pira 1 tablet by mouth every four hours as needed ambmavrpbe-mdkashkkgazmx-ygkiazca 50-325-40 MG tablet Take 1 tablet by mouth every 4 (four) hours if needed. 04/23/2023 12/08/2024 Discontinuedmeclizine hydrochloride 25 mg oral tablet (20 sources)Antiemetic End: 43-98-3361lfqcjzljc (Antivert) 25 MG tablet Take 25 mg by mouth. 12/08/2024 Discontinuednaproxen 250 mg oral tablet (20 sources)Nonsteroidal Anti-inflammatory Drug End: 73-26-3245dltvfdab (Naprosyn) 250 MG tablet Take by mouth 12/08/2024 DiscontinuedNIFEdipine 60 mg osmotic 24 hr extended release oral tablet (20 sources)Dihydropyridine Calcium Channel BlockerStart: 04-23-2023 End: 75-82-2492npau 1 tablet by mouth every twenty-four hours in the morning NIFEdipine XL (Procardia XL) 60 MG 24 hr tablet Take 60 mg by mouth in the morning. 04/23/2023 12/08/2024 Discontinuednitrofurantoin, macrocrystals 25 mg / nitrofurantoin, monohydrate 75 mg oral capsule (7 sources)Nitrofuran AntibacterialStart: 01-01-2025 End: 34-76-5595sdkn 1 capsule by mouth in the morningnitrofurantoin, macrocrystal-monohydrate, (Macrobid) 100 MG capsule Indications: Acute cystitis with hematuria Take 1 capsule (100 mg) by mouth in the morning and 1 capsule (100 mg) before bedtime. Do all this for 7 days. 14 capsule 01/01/2025 01/09/2025 Discontinued (Therapy completed)Start: 12-11-2024 End: 23-09-0292eefh 1 capsule by mouth in the morningnitrofurantoin, macrocrystal-monohydrate, (Macrobid) 100 MG capsule Indications: Acute cystitis without hematuria Take 1 capsule (100 mg) by mouth in the morning and 1 capsule (100 mg) before bedtime. Do all this for 7 days. 14 capsule 12/11/2024 12/18/2024 ActiveStart: 07-14-2024 End: 93-75-4430yxlb 1 capsule by mouth in the morningnitrofurantoin, macrocrystal-monohydrate, (Macrobid) 100 MG capsule Indications: Acute cystitis without hematuria Take 1 capsule (100 mg) by mouth in the morning and 1 capsule (100 mg) before bedtime. Do all this for 7 days. 14 capsule 07/14/2024 07/21/2024 Activeromosozumab (20 sources)Start: 09-25-2025 End: 76-63-1146476 mg, subcutaneous, Once, On Wed09/25/25 at 1515, For 1 dose, Bring to room temp for at least 30min in original container. Give sub-Q into abdomen, thigh, or outer area of upper arm. Give two consecutive SubQ injections of 105 mg each for a total dose of 210 mg. Rotate injection sites.Start: 08-17-2025 End: 42-31-7908258 mg, subcutaneous, Once, On Wed08/17/25 at 1300, For 1 dose, Bring to room temp for at least 30min in original container. Give sub-Q into abdomen, thigh, or outer area of upper arm. Give two consecutive SubQ injections of 105 mg each for a total dose of 210 mg. Rotate injection sites.Start: 07-20-2025 End: 16-88-0686291 mg, subcutaneous, Once, On Wed07/20/25 at 1315, For 1 dose, Bring to room temp for at least 30min in original container. Give sub-Q into abdomen, thigh, or outer area of upper arm. Give two consecutive SubQ injections of 105 mg each for a total dose of 210 mg. Rotate injection sites.Start: 06-13-2025 End: 78-78-9194589 mg, subcutaneous, Once, On Wed06/13/25 at 1230, For 1 dose, Bring to room temp for at least 30min in original container. Give sub-Q into abdomen, thigh, or outer area of upper arm. Give two consecutive SubQ injections of 105 mg each for a total dose of 210 mg. Rotate injection sites.Start: 05-16-2025 End: 98-62-7790921 mg, subcutaneous, Once, On Wed05/16/25 at 1015, For 1 dose, Bring to room temp for at least 30min in original container. Give sub-Q into abdomen, thigh, or outer area of upper arm. Give two consecutive SubQ injections of 105 mg each for a total dose of 210 mg. Rotate injection sites.Start: 04-18-2025 End: 17-60-1122561 mg, subcutaneous, Once, On Wed04/18/25 at 1015, For 1 dose, Bring to room temp for at least 30min in original container. Give sub-Q into abdomen, thigh, or outer area of upper arm. Give two consecutive SubQ injections of 105 mg each for a total dose of 210 mg. Rotate injection sites.Start: 03-21-2025 End: 54-77-1535323 mg, subcutaneous, Once, On Wed03/21/25 at 1045, For 1 dose, Bring to room temp for at least 30min in original container. Give sub-Q into abdomen, thigh, or outer area of upper arm. Give two consecutive SubQ injections of 105 mg each for a total dose of 210 mg. Rotate injection sites.Start: 02-16-2025 End: 86-43-7012363 mg, subcutaneous, Once, On Wed02/16/25 at 1315, For 1 dose, Bring to room temp for at least 30min in original container. Give sub-Q into abdomen, thigh, or outer area of upper arm. Give two consecutive SubQ injections of 105 mg each for a total dose of 210 mg. Rotate injection sites.Start: 01-12-2025 End: 73-74-7509282 mg, subcutaneous, Once, On Wed01/12/25 at 1300, [...] tablet (20 sources)Central alpha-2 Adrenergic Agonist End: 47-22-6634vcps 1 tablet by mouth once dailytiZANidine (Zanaflex) 4 MG tablet take 0.5 to 2 tablets by mouth nightly 12/08/2024 Discontinuedvitamin b12 1 mg sublingual tablet (14 sources)Vitamin T50Wczqi: 01-18-2024 End: 74-09-9345gnch 1 tablet under the tongue in the morningcyanocobalamin (VITAMIN B12) 1,000 mcg tablet, sublingual Place 1 tablet (1,000 mcg total) under the tongue in the morning. 30 tablet 11 01/18/2024 12/19/2024 Discontinued Problems Active Problems Problem ClassificationProblemDateDocumented DateEpisodic/ChronicAbdominal pain (2 sources)Flank pain; Translations: [Unspecified abdominal pain]01-23-2025 EpisodicAcute bronchitis (4 sources)Acute bronchitis; Translations: [Acute bronchitis, unspecified] 57-52-8523NzmvepaoLuyeqhb disorders (1 source)Anxiety; Translations: [Anxiety disorder, unspecified]01-03-2025 ChronicAsthma (20 sources)Asthma; Translations: [Unspecified asthma, uncomplicated]Onset: 692990-48-9979PvwggwhPaievxk kidney disease (20 sources)Chronic kidney disease stage 3B ; Translations: [Stage 3b chronic kidney disease (CKD)]Onset: 620877-70-1251QjcsgxmMdvgphztsuaco of surgical procedures or medical care (20 sources)Drug-induced hypotension; Translations: [Hypotension due to drugs] Onset: 765776-41-3680BtevlxsvUndlgvqrgp associated with dizziness or vertigo (2 sources)Dizziness; Translations: [Dizziness and giddiness]01-93-1635Dnnsvwgw Conduction disorders (20 sources)First degree atrioventricular block; Translations: [Atrioventricular block, first degree]Onset: 775178-83-1544AzkcfhxKhzrtttymt and other anemia (1 source)Anemia; Translations: [Anemia, unspecified]83-03-9737XopskymnKzwousrsn of lipid metabolism (20 sources)Hyperlipidemia; Translations: [Hyperlipidemia, unspecified]Onset: 575998-49-8507XsowxbbR Codes: Fall (3 sources)FallOnset: 742397-12-2162Peoyqhbhlr disorders (20 sources)Gastroesophageal reflux disease without esophagitis; Translations: [Gastro-esophageal reflux disease without esophagitis]Onset: 09-15-2021 70-72-7831FzuqscqJulnqrbpm hypertension (20 sources)Essential hypertension; Translations: [Essential (primary) hypertension]Onset: 929769-01-1514VdbwjijVrmxkowj of upper limb (1 source)Displaced fracture of proximal phalanx of left little finger, subsequent encounter for fracture with routine healing; Translations: [Displaced fracture of proximal phalanx of left little finger, subsequent encounter for fracture with routine healing]Onset: 33-36-2023MyneihppBvgcikqcdtxyr symptoms and ill-defined conditions (20 sources)Mixed urinary incontinence; Translations: [Mixed incontinence]Onset: 480505-94-6233VdjkmshKwchpjqq; including migraine (20 sources)Migraine; Translations: [Migraine, unspecified, not intractable, without status migrainosus]Onset: 12-12-2018 Resolved: 720356-49-1447JphablvBbhenwqua (2 sources)Influenza due to Influenza A virus; Translations: [Influenza due to other identified influenza virus with other respiratory manifestations] 69-45-7006NmgdyxabZadibcicckbeu mental health disorders (20 sources)Primary insomnia; Translations: [Primary insomnia]Onset: 12-12-2018 72-86-2891DzoisjfRfnx disorders (20 sources)Depressive disorder; Translations: [Other specified depressive episodes]Onset: 469258-77-2363PzvufbgAikgahw (2 sources)Onychomycosis due to dermatophyte ; Translations: [Tinea unguium] 33-12-0876SwvymtibOthyku and vomiting (20 sources)Postoperative nausea and vomiting; Translations: [Nausea with vomiting, unspecified]62-19-7688KdrsddzvXqfhutbbctt deficiencies (3 sources)Vitamin D deficiency; Translations: [Vitamin D deficiency, unspecified]Onset: 916029-50-3272QtdtrsbTzmqtigqfzlxpo (20 sources)Osteoarthritis of right knee joint; Translations: [Unilateral primary osteoarthritis, right knee]Onset: 040955-42-6914Dymxins Osteoporosis (20 sources)Senile osteoporosis; Translations: [Age-related osteoporosis without current pathological fracture]Onset: 12-19-2019 Resolved: 927569-72-3975PgawcnlQaksj and ill-defined heart disease (20 sources)Diastolic dysfunction; Translations: [Other ill-defined heart diseases]Onset: 001948-91-4729BnjbnxxUygly and ill-defined heart disease (20 sources)Left ventricular hypertrophy; Translations: [Cardiomegaly]Onset: 342794-18-4293TdlasbmRbmxf and unspecified benign neoplasm (2 sources)Intracranial meningioma; Translations: [Benign neoplasm of cerebral meninges]53-32-2868OpevnvwRkoje and unspecified benign neoplasm (3 sources)Benign neoplasm of meninges; Translations: [Benign neoplasm of meninges, unspecified]22-66-7067VxtfgcsDkqhv and unspecified benign neoplasm (2 sources)Benign neoplasm of meninges, unspecified; Translations: [Benign neoplasm of meninges, unspecified]Onset: 44-79-7935LfuncnuEzmhs connective tissue disease (20 sources)Cramp in lower limb; Translations: [Sleep related leg cramps]Onset: 298866-63-1969SqphkmnNylgv connective tissue disease (1 source)Trigger finger, right ring finger; Translations: [Trigger finger, right ring finger]Onset: 91-51-8600RguyswpnLnusv connective tissue disease (1 source)Pain in left hand; Translations: [Pain in left hand]Onset: 09-28-2022 EpisodicOther connective tissue disease (4 sources)Pain in toe; Translations: [Pain in right toe(s)]29-30-3913Rxqgiile Other ear and sense organ disorders (1 source)Sensorineural hearing loss in right ear; Translations: [Unspecified sensorineural hearing loss]72-45-5519TlvkfejPbwni gastrointestinal disorders (20 sources)Chronic idiopathic constipation; Translations: [Chronic idiopathic constipation]Onset: 814859-55-5023PqubsnwFxcpu hereditary and degenerative nervous system conditions (20 sources)Essential tremor; Translations: [Essential tremor]Onset: 12-12-2018 71-22-5694UooxpouSvifs hereditary and degenerative nervous system conditions (1 source)Essential tremor; Translations: [Essential tremor]Onset: 12-12-2018 ChronicOther lower respiratory disease (2 sources)Interstitial lung disease; Translations: [Interstitial pulmonary disease, unspecified]98-30-3169JfamvpoGhndx lower respiratory disease (2 sources)Cough; Translations: [Acute cough]87-16-6602SaixpzbzSwrlm nervous system disorders (1 source)Mass lesion of brain; Translations: [Other specified disorders of brain]57-07-5570SsttzbqBdwdn nervous system disorders (20 sources)Lesion of brain; Translations: [Disorder of brain, unspecified] Onset: 742984-02-3459XjrxkspNubkd nervous system disorders (20 sources)Chronic pain syndrome; Translations: [Chronic pain syndrome]Onset: 705058-94-3035MavmlscPkrgk nervous system disorders (20 sources)Carpal tunnel syndrome; Translations: [Carpal tunnel syndrome, unspecified upper limb]Onset: 563829-84-2239MzrzroyAvkig skin disorders (2 sources)Dystrophia unguium; Translations: [Nail dystrophy]93-79-7080Bxffllet Other upper respiratory disease (2 sources)Allergic rhinitis due to pollen; Translations: [Allergic rhinitis due to pollen]86-22-1470FpnjjoeIdqbd upper respiratory disease (8 sources)Hoarse; Translations: [Dysphonia]21-04-3355VikrijexLgkqy upper respiratory disease (2 sources)Senile voice; Translations: [Other diseases of larynx]01-09-2025 EpisodicOther upper respiratory infections (2 sources)Posterior rhinorrhea; Translations: [Chronic sinusitis, unspecified] 14-80-5208SvcfoahEnrof upper respiratory infections (2 sources)Sore throat symptom; Translations: [Acute pharyngitis, unspecified] 10-73-7628PfbgvgrpRikbqmvd of female genital organs (18 sources)Midline cystocele; Translations: [Cystocele, midline]Onset: 171612-02-0308LrcezyyUhootzenuul; intervertebral disc disorders; other back problems (20 sources)Degeneration of lumbosacral intervertebral disc; Translations: [Other intervertebral disc degeneration, lumbosacral region]Onset: 08-14-2011 Resolved: 724776-24-9509DzkijedUzhtkpc disorders (20 sources)Acquired hypothyroidism; Translations: [Hypothyroidism, unspecified] Onset: 886764-07-8798SeetrutYnmkmfvdciil (20 sources)Patient on antidepressant monitoring planOnset: Unclassified (1 source)InjectionOnset: 93-63-0392Wlotgwfgdwme (1 source)EMSOnset: 06-81-0466Wihhwcbmajth (1 source)Low back pain, unspecified; Translations: [Low back pain, unspecified] Onset: 28-13-8634Glyykku tract infections (6 sources)Acute cystitis; Translations: [Acute cystitis without hematuria] Onset: 529005-77-1828Nxdoieek Past or Other Problems Problem ClassificationProblemDateDocumented DateEpisodic/ChronicAcute and unspecified renal failure (20 sources)Acute renal failure syndrome; Translations: [Acute kidney failure, unspecified]Onset: 046007-57-5405NkgozovwEhjee cerebrovascular disease (20 sources)Hematoma of subdural space of neuraxis; Translations: [SDH (subdural hematoma)]Onset: 01-04-2018 Resolved: 981983-25-5402CrkvhlwEhgpzjdkzh disorders (20 sources)Adjustment disorder with anxious mood; Translations: [Adjustment disorder with anxiety]Onset: 05-04-2023 Resolved: 818872-41-5524UojhaovYtbpggqb of urinary tract (20 sources)Kidney stone; Translations: [Calculus of kidney]Onset: 03-02-2023 14-56-8732IwaibmlwH Codes: Fall (6 sources)Fall; Translations: [Unspecified fall, subsequent encounter]Onset: 973976-09-0877IjhxzlqrAwiybenhdddeh symptoms and ill-defined conditions (8 sources)Dysuria; Translations: [Dysuria]Onset: 047537-87-2516Byjopupe Malaise and fatigue (20 sources)Asthenia; Translations: [Weakness]Onset: EpisodicMood disorders (20 sources)Mood disordersOnset: 12-06-2023 Resolved: Other circulatory disease (20 sources)Low blood pressure; Translations: [Hypotension, unspecified]Onset: 139843-73-2570SejpjilcZmcre connective tissue disease (20 sources)Bilateral trochanteric bursitis; Translations: [Trochanteric bursitis, right hip]Onset: 121545-69-2559OjyfxzylFnltb connective tissue disease (20 sources)Recurrent falls ; Translations: [Repeated falls]Onset: 11-01-2017 11-83-7004DhvjfmxrZopua connective tissue disease (20 sources)History of lumbar fusion; Translations: [Arthrodesis status]Onset: 807675-68-0956GrwrczhgTfkxv connective tissue disease (20 sources)Impingement syndrome of right shoulder region; Translations: [Impingement syndrome of right shoulder]Onset: 330048-51-2896UprrrbcyXrjul connective tissue disease (20 sources)Muscle spasm of cervical muscle of neck; Translations: [Other muscle spasm]Onset: 982622-11-0940LkcypxluBsywy connective tissue disease (20 sources)Nocturnal muscle spasm ; Translations: [Other muscle spasm]Onset: 669934-23-4081KemobmpzXmxhy connective tissue disease (1 source)Other muscle spasm; Translations: [Other muscle spasm]Onset: 66-33-7845KvolzrtvTmcmi injuries and conditions due to external causes (20 sources)History of fall; Translations: [History of falling]Onset: 11-04-2023 53-96-3967GkndjeuyZdkxf lower respiratory disease (20 sources)Nodule of lung; Translations: [Solitary pulmonary nodule]Onset: 252888-53-2320EevuocldXuqan lower respiratory disease (20 sources)Dyspnea; Translations: [Shortness of breath]Onset: 11-06-2019 68-17-3854VdndkwvnEkpra nervous system disorders (20 sources)Impairment of balance; Translations: [Other abnormalities of gait and mobility]Onset: 564383-02-6636BlsalbnoHqowx non-traumatic joint disorders (20 sources)Hip pain; Translations: [Pain in right hip]Onset: 10-13-2017 83-89-0313WvxqxemhDsszw upper respiratory disease (20 sources)Chronic hoarseness; Translations: [Dysphonia]Onset: 07-24-2020 99-93-7886VwxoibhfCrsqkxyf codes; unclassified (18 sources)Family history of malignant neoplasm of breast in first degree relative; Translations: [Family history of malignant neoplasm of breast]Onset: 993471-10-9260KcxebdjlAidoator codes; unclassified (18 sources)Family history of malignant neoplasm of breast at under age 50 in second degree female relative; Translations: [Family history of malignant neoplasm of breast]Onset: 117803-46-4536GeotxrxcXxmrfrij codes; unclassified (18 sources)Family history of malignant neoplasm of ovary in second degree relative; Translations: [Family history of malignant neoplasm of ovary]Onset: 452375-79-6800XfvuqviaXpmsqbrxa and history of mental health and substance abuse codes (20 sources)H/O: depression; Translations: [Personal history of other mental and behavioral disorders]Onset: 427468-86-2232JazbhzvlIkgnkrmsxec; intervertebral disc disorders; other back problems (20 sources)Spinal stenosis of lumbar region; Translations: [Spinal stenosis, lumbar region without neurogenic claudication]Onset: 08-14-2011 Resolved: 418612-77-3351Psqkdbvp Results Test NameValueInterpretationReference RangeFacilityALLJOHN C. [facility]REMONT [facility] HEALTHon 10-01-2025 ALLIED HEALTHHNO ID: [id number] Author: NUSRAT VEGA RT(Sahra) Service: Radiology Author Type: Technologist Type: Allied Health Filed: 10/01/2025 11:21 Note Text: Radiology Service Progress Note DATE OF SERVICE: October 01, 2025 TIME: 11:06 AM PATIENT IDENTITY VERIFICATION COMPLETED USING TWO (2) STANDARD IDENTIFIERS: Name and Date of confirmed by patient verbally and Name and Date of confirmed by identification band. FALL SCREENING: Has the patient had 2 falls in the last year or 1 fall with injury or currently using an Ambulatory Assistive Device (Walker, Cane, Wheelchair, Crutches, etc.)? Yes, Patient High Risk for Falls What interventions were put in place to prevent falls during this visit? Non-Skid Socks Used, Instructed Patient to Call for Help if Needed, Offered Assistance with Transfers/Clothing, Instructed Patient to Remain Seated (Not on Exam Table) Until Exam, and Increased Observations by Caregivers PATIENT GENDER DATA: Assigned female at . status: : No status: NO. PATIENT RELEVANT IMPLANT DATA REVIEWED: Yes PATIENT PRESENTS WITH AN IMPLANTABLE OR ATTACHED DRY PLACER MACHINE OPERATOR: No ALLERGIES: Reviewed and unchanged CONTRAST ALLERGY: NO. EXAM: MRI - CONTRAST TYPE: GROUP II PERIPHERAL IV DATA: Ambulatory: A peripheral IV was started in the Left with a Angio cath: 24 gauge. RADIOLOGY DEPARTMENT: MR; Exam(s) Completed: Head: IAC/CPA. Anesthesia: No. Aromatherapy Administered: No SIGNATURE: RT [place](R) PATIENT NAME: Angela Ruth DATE: October 01, 2025 TIME: 11:06 AMNormalBrecksville VA [facility]CONon 10-01-2025 MRI BRAIN WO/W IVCON* * *Final Report* * * DATE OF EXAM: Oct 01 2025 11:48AM [facility] 0295 - MRI BRAIN WO/W IVCON [...] extracranial soft tissues are within normal limits. IMPRESSION: Stable size of the mass along the posterior right petrous temporal bone with minimal local mass effect on the anterior right cerebellar hemisphere, likely reflecting a small meningioma. Sales Operations Analyst: [facility] HOSPITALRobert Transcribe Date/Time: Oct 01 2025 1:01P Dictated by : TISHA TRUONG MD This examination was interpreted and the report reviewed and electronically signed by: TISHA TRUONG MD on Oct 01 2025 1:08PM EST [id number] HospitalCALCIUMon 09-24-2025 Calcium [Mass/Vol]9.4 mg/dLNormal8.5-10.5PMercy Health Tiffin HospitalComment on above:Performed By: #### [place] ####[facility] ([facility])[address], [place] [address] VIRCALCIUMon 97-30-5424Jefewwd [Mass/Vol]9.4 mg/dLNormal8.5-10.5PMercy Health Tiffin HospitalComment on above:Performed By: #### [place] ####[facility] ([facility])[address], [place] [address] VIRCALCIUMon 15-10-6236Nutqvwx [Mass/Vol]9.4 mg/dLNormal8.5-10.5 [facility] HospitalComment on above:Performed By: #### [place] ####[facility] ([facility])[address], [place] [address] VIR CALCIUMon 87-24-6486Wmbslzo [Mass/Vol]9.5 mg/dLNormal8.5-10.5PMercy Health Tiffin HospitalComment on above:Performed By: #### [place] ####[facility] ([facility])[address], [place] [address] VIRCALCIUMon 05-15-2025 Calcium [Mass/Vol]9.7 mg/dLNormal8.5-10.5PMercy Health Tiffin HospitalComment on above:Performed By: #### [place] ####[facility] ([facility])[address], [place] [address] VIRCALCIUMon 81-58-4118Vymdozf [Mass/Vol]9.5 mg/dLNormal8.5-10.5PMercy Health Tiffin HospitalComment on above:Performed By: #### [place] ####[facility] ([facility])[address], [place] [address] VIRCALCIUMon 20-03-4600Ursfalj [Mass/Vol]9.6 mg/dLNormal8.5-10.5 St[facility] Vincent HospitalComment on above:Performed By: #### [place] ####[facility] ([facility])[address], [place] [address] VIR POCT Urinalysis Auto, W/O Microscopyon 54-43-0022Vxipuviv Poct Urine Blood NegativeProMedioh Health SystemExternal Poct Urine GlucoseNegativeProMedioh Health SystemExternal Poct Urine KetonesNegativeProMedioh Health SystemExternal Poct Urine Leukocyte EsteraseNegativeProMedioh Health SystemExternal Poct Urine NitriteNegativeProSheltering Arms Hospital SystemExternal Poct Urine Ph5.5PUniversity Hospitals [facility] SystemExternal Poct Urine Protein1+[facility] SystemProSheltering Arms Hospital SystemCALCIUMon 65-98-0544Ndbpcrc [Mass/Vol]9.3 mg/dLNormal8.5-10.5PMercy Health Tiffin HospitalComment on above:Performed By: #### 08788-2 #### [facility] ([id number]) [address] [place], [place] [address]RG ABDOMEN PELVIS WO IV CONTRASTon 16-62-3804FA ABDOMEN PELVIS WO IV CONTRASTCT ABDOMEN PELVIS [...] interpreting Radiologist.NormalNot AvailableUrinalysis macro (dipstick) panel (U)on 56-89-1985Vjovbaull, UANegativeNegative - 4(70) +++ mg/dLNOMS HealthcareBlood, UAPositiveNegative - 50 Darryl/mcLNOMS HealthcareClarity, UACloudyNOMS Healthcare Color, UAYellowNOMS HealthcareGlucose, UANegativeNegative - 2000(110) ++++ mg/dL NOMS HealthcareInterpretation and review of laboratory resultsAbnormalNONC HealthcareKetones, UANegativeNegative - 160(16) ++++ mg/dLNOMS Healthcare Leukocytes, UA3+Negative - 500+++ Obdulio/mcLNOMS HealthcareNitrite, UAPositive Negative - PositiveNOMS HealthcarepH, UA55 - 9NOMS HealthcareProtein, UA2+ Negative - 2000(20) ++++ mg/dLNOMS HealthcareSpec Grav, UA1.021 - 1.03NOMS HealthcareUrobilinogen, UA1.00.2 - 12 mg/dLNOMS HealthcareNOMS Healthcare Laboratory - Microbiology and Antimicrobial susceptibilityon 01-15-2025 SARS-CoV-2 (COVID-19) RNA MICHAEL+probe Ql (Unsp spec)NegativeNONC HealthcareNo Panel Informationon 99-33-1863ZEI APositiveNOMS HealthcareFLU BNegativeNOMS HealthcareInterpretation and review of laboratory resultsAbnoGeisinger-Shamokin Area Community Hospital NOMS HealthcareCALCIUMon 17-94-9636Wenxpzl [Mass/Vol]9.8 mg/dLNormal8.5-10.5 [facility] [facility] HospitalComment on above:Performed By: #### [id number] #### [facility] ([id number]) [address] [place], [place] [address]Lhsbdiojwe macro (dipstick) panel (U)on 45-90-4221Unnszstzk, UA NegativeNegative - 4(70) +++ mg/dLNOMS HealthcareBlood, UAPositiveNegative - 50 Darryl/mcLNOMS HealthcareClarity, UACloudyNOMS HealthcareColor, UADark AmberNOMS HealthcareGlucose, UANegativeNegative - 2000(110) ++++ mg/dLNOMS Healthcare Interpretation and review of laboratory resultsAbnormalNOMS HealthcareKetones, UANegativeNegative - 160(16) ++++ mg/dLNOMS HealthcareLeukocytes, UA4+Negative - 500+++ Obdulio/mcLNOMS HealthcareNitrite, UANegativeNegative - PositiveNOMS HealthcarepH, UA55 - 9NOMS HealthcareProtein, UA3+Negative - 2000(20) ++++ mg/dL NOMS HealthcareSpec Grav, UA1.021 - 1.03NOMS HealthcareUrobilinogen, UA0.20.2 - 12 mg/dLNOMS HealthcareNOMS HealthcareCT BRAIN WO CONTon 10-79-1172WK BRAIN WO CONTCT BRAIN WO CONT CT [...] Finalized by Dharmesh Mittal on 12/23/2024 8:53 [facility]CT [facility] SP[facility] WO CONTon 80-76-9477WR CERVICAL SPINE WO CONTCT CERVICAL SPINE WO [...] Finalized by Dharmesh Mittal on 12/23/2024 8:44 [facility] CenterCT KNEE RT WO CONTon 05-08-3932LC KNEE RT WO CONTCT KNEE RT WO [...] Maria C Singh MD on 12/23/2024 9:54 PMNU[facility] CenterXR CHEST 1 VWon 07-06-0804UZ CHEST 1 VWXR CHEST 1 VW XR [...] by Eileen Negrete MD on 12/23/2024 8:36 PMNUC Medical CenterXR HIP RT 2-3 VIEWS W OR WO PELVISon 10-04-6396GB HIP RT 2-3 VIEWS W OR WO PELVISXR HIP RT 2-3 VIEWS W OR WO PELVIS EXAM: XR HIP RT 2-3 VIEWS W OR WO PELVIS CLINICAL INDICATIONS: fall, R hip pain FINDINGS/IMPRESSION: No acute fracture or traumatic malalignment. Mild degenerative changes of the bilateral hips. Postoperative changes in the lumbar spine. Clips in the pelvis. Finalized by Dharmesh Mittal on 12/23/2024 8:41 PMNUC Medical CenterXR KNEE RT 3 VWSon 87-08-0021ZZ KNEE RT 3 VWSXR KNEE RT 3 [...] Finalized by Dharmesh Mittal on 12/23/2024 8:56 PMNUC Medical CenterXR SHOULDER RT MIN 2 VWSon 46-30-1789XU SHOULDER RT MIN 2 VWSXR SHOULDER RT [...] by Eileen Negrete MD on 12/23/2024 8:31 PMNUC Medical CenterLaboratory - Miscellaneous testson 38-15-3261Lmlxjwi comment (Unsp spec) [Interp]NOMS HealthcareComment on above:This urine was analyzed for the presence of WBC, RBC, bacteria, casts, and other formed elements. Only those elements seen were reported. No Panel Informationon 42-72-3047Uqqjmtnlou Organization Information Site ID: QPT Name: [facility] Address: [address] [place] [address], [address] [place] [id number] Director: Angel Noble MDNOMS HealthcareNOMS HealthcareUrinalysis complete panel (U)on 99-59-8729Vykktfyplx (U)TURBIDAbnormalCLEARNOMS HealthcareBacteria LM.HPF (Urine sed) [#/Area]MANYAbnormalNONE SEEN [...] (U)6.5 [pH]5.0 - 8.0NOMS HealthcareProtein Ql (U)TRACEAbnormal NEGATIVENONC HealthcareRBC LM.HPF (Urine sed) [#/Area]0-2< OR = 2 /HPFNOMS HealthcareSpecific gravity (U) [Rel density]1.0171.001 - 1.035NOMS HealthcareWBC LM.HPF (Urine sed) [#/Area]PACKEDAbnormal< OR = 5 /HPFNOMS HealthcareUrinalysis macro (dipstick) panel (U)on 16-15-4756Eccpyxpbx, UANegativeNegative - 4(70) +++ mg/dLNOMS HealthcareBlood, UAPositiveNegative - 50 Darryl/mcLNOMS Healthcare Clarity, UACloudyNOMS HealthcareColor, UAYellowNOMS HealthcareGlucose, UA NegativeNegative - 2000(110) ++++ mg/dLNOMS HealthcareInterpretation and review of laboratory resultsAbnormalNOMS HealthcareKetones, UANegativeNegative - 160(16) ++++ mg/dLNOMS HealthcareLeukocytes, UA4+Negative - 500+++ Obdulio/mcLNOMS HealthcareNitrite, UANegativeNegative - PositiveNOMS HealthcarepH, UA65 - 9NOMS HealthcareProtein, UA2+Negative - 1999(20) ++++ mg/dLNOMS HealthcareSpec Grav, UA1.011 - 1.03NOMS HealthcareUrobilinogen, UA0.20.2 - 12 mg/dLNOMS Healthcare NOMS HealthcareXR SPINE LUMBAR 2 OR 3 VWSon 93-21-0230UJ SPINE LUMBAR 2 OR 3 VWS XR [...] by Britney Mendoza MD on 11/28/2024 3:13 PMNormalMercy Health Urbana Hospitalca [facility] 82-26-8640ODKPJqzdeixun (NSCAMN) ANGELA RUTH ([id number]) 1945 F Date Time Provider Department 10/04/24 ROSE VELASQUEZ [facility] During your visit today, we recorded the following information about you: Keenan HeartJessica 10/04/2024 3:20 PM Signed General Call Caller : Angela Contact Reason for Call : Did you speak with Dr. Hoover regarding her most recent appt? Patient requesting return call ? Yes Rose Velasquez APRN.MECHANICAL ASSEMBLER 10/06/2024 10:09 AM Signed Voicemail left for Angela at [phone]. Call back number given. 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 My note was forward to Dr. Hoover for review. At this time we recommend follow up and new imaging in 1 year. Rose Velasquez, MSN, ESOL TEACHER, MECHANICAL ASSEMBLER Certified Nurse Practitioner Allergies As of Date: [...] mg capsule 20 mg once daily. - sotmhtjxevlqv-yosrjlpqrwbavdhsjo-gnohwqaunpsms (MIDRIN) 65-100-325 mg per capsule 1 capsule [...] [M5*01/27/2018 Encounter Status:Closed by ROSE VELASQUEZ on 10/[facility]/24[facility] Solo 05-43-2164TKLFFUCRXH: Stable size of a RIGHT petrous ridge presumed meningioma compared to 03/02/2024. Sales Operations Analyst: ALLYSSA Transcribe Date/Time: Sep 26 2024 2:10P Dictated by : MAUREEN PEARL MD This examination was interpreted and the report reviewed and electronically signed by: MAUREEN PEARL MD on Sep 26 2024 2:14PM [facility] DIVISION OF RADIOLOGY* * *Final Report* * * DATE OF EXAM: Sep 26 2024 12:29PM [facility] 0295 - MRI BRAIN WO/W IVCON [...] soft tissues otherwise unremarkable. DIVISION OF RADIOLOGYProvider, [facility] [place] - 09/26/2024 * * *Final Report* * * DATE OF EXAM: Sep 26 2024 12:29PM [facility] 0295 - MRI BRAIN WO/W IVCON [...] ridge presumed meningioma compared to 03/02/2024. Sales Operations Analyst: ALLYSSA Transcribe Date/Time: Sep 26 2024 2:10P Dictated by : MAUREEN PEARL MD This examination was interpreted and the report reviewed and electronically signed by: MAUREEN PEARL MD on Sep 26 2024 2:14PM EST [facility] HospitalRad[facility] Study observation (narrative)[facility] Brain WO and W contrast IVOrdered By: [facility] Provider on 13-90-3518[facility] - Microbiology and Antimicrobial susceptibilityon 08-16-2024 SARS-CoV-2 (COVID-19) RNA MICHAEL+probe Ql (Unsp spec)NegativeNONC HealthcareNo Panel Informationon 56-15-2846WQI ANegativeNOMS HealthcareFLU BNegativeNONC HealthcareInterpretation and review of laboratory resultsNormalNOSt. Luke's Hospital NOMS HealthcareXR Thoracic spine 3 Viewson 07-11-2024 EXAM: XR [...] report is generated using voice recognition reporting ([employer]). On occasion PowerScribe erroneously drops words from [...] report is generated using voice recognition reporting ([employer]). On occasion PowerScribe erroneously drops words from the report or replaces the spoken word with similar sounding words. Please call with any questions/concerns regarding this report.* Dictated and transcribed 07/11/2024/tm This report has been electronically signed and approved by the interpreting radiologist. Electronically Signed Shubham Almodovar II, M.D. 2024-07-11 10:01:04 NOMS HealthcareXR Thoracic spine 3 ViewsOrdered By: Shubham Almodovar on 26-40-7287[facility] Work Phone: Urinalysis macro (dipstick) panel [...] mg/dLNOMS HealthcareNOMS HealthcareXR Thoracic spine 3 Viewson 83-62-8895Jleiragnc Study observation (narrative)NOMS HealthcareXR CERVICAL SPINE W FLEX/EXTon 40-62-[address] [address] XRay Report Signed Patient: ANGELA RUTH MR#: [id number] : 1945 Acct:[id number] Age/Sex: 78 / F ADM Date: 01/04/24 Loc: RAD Attending Dr: Ilia Galarza NP Ordering Physician: Ilia Galarza NP Date of Service: 01/04/24 Procedure(s): XR cervical spine w flex/ext Accession Number(s): [id number] cc: BIA CAO ; Ilia Galarza NP [facility] [place] [id number] Patient Name: ANGELA RUTH MRN: [id number] date: 1945 Sex: F Assigned Patient Location: [facility] Current Patient Location: [facility] Accession/Order Number: [id number] Exam Date: 01/04/2024 14:20 Report Date: 01/04/2024 15:55 At the request of: ILIA GALARZA Procedure: XR cervical spine w flex/ext EXAMINATION: [...] mm during flexion Electronically authenticated by: TISHA BILLINGS Date: 01/04/2024 15:55 Dictated By: Tisha Billings M.D. Signed By: 01/04/24 1557 DD/ 1555 TD/TT: Sales Operations Analyst:TBHRadiology, Radiologist, - 01/04/2024 [place] [address] XRay Report Signed Patient: ANGELA RUTH MR#: [id number] : 1945 Acct:[id number] Age/Sex: 78 / F ADM Date: 01/04/24 Loc: [facility] Attending Dr: Ilia Galarza NP Ordering Physician: Ilia Galarza NP Date of Service: 01/04/24 Procedure(s): XR cervical spine w flex/ext Accession Number(s): [id number] cc: BIA CAO ; Ilia Galarza NP [facility] [place] [id number] Patient Name: ANGELA RUTH MRN: [id number] date: 1945 Sex: F Assigned Patient Location: [facility] Current Patient Location: [facility] Accession/Order Number: [id number] Exam Date: 01/04/2024 14:20 Report Date: 01/04/2024 15:55 At the request of: ILIA GALARZA Procedure: XR cervical spine w flex/ext EXAMINATION: [...] mm during flexion Electronically authenticated by: TISHA BILLINGS Date: 01/04/2024 15:55 Dictated By: Tisha Billings M.D. Signed By: 01/04/247 DD/ 54 TD/TT: Sales Operations Analyst: [facility] HealthcareRadiology Study observation (narrative)[facility] CampusXR CERVICAL SPINE W FLEX/EXTOrdered By: Radiologist Radiology on [id number] Medical Center-Brookside Campus Work Phone: ct Abdomen/Pelvis w + w/o Contraston 21-80-0936YH Abdomen/Pelvis w + w/o ContrastCLINICAL INDICATION: Hematuria [...] and signed by Felix Dominguez on 12/07/2022 1159NoMercy Health Lorain HospitalXR HAND LEFT (MIN 3 VIEWS)on 81-57-5013IT HAND LEFT (MIN 3 VIEWS)3 x-ray views of the left hand completed on 10/12/2022 were reviewed independently demonstrating anoblique fracture with mild comminution involving the proximal phalanx of the small finger. No significant change in overall alignment appreciated. Mild interval consolidation across the fracture site noted. Interpreted by: Matt Cowart MD Signed by: Matt Cowart MD 11/07/22 Final resultNoTogus VA Medical CenterXR HAND LEFT (MIN 3 VIEWS)3 xray views [...] Signed by: Matt Cowart MD 11/07/22 Final resultNoTogus VA Medical CenterXR Chest 2 Views*on 09-10-2022 XR [...] and signed by Bartolome Monson on 09/10/2022 1507NormalNoSumma Health Akron Campusplete Blood Count with Auto Diffon 73-39-6731Wchogxdtj (Bld) [#/Vol]0.07 10*3/uLNormal0.00-0.20Fire[facility] Medical CenterComment on above:Performed By: #### CMP, CBCAD #### [facility] [address], [place] [id number]/100 WBC (Bld)0.9 %NormalNoNewark Hospital SpecialistComment on above:Performed By: #### CMP, CBCAD #### [facility] [address], [place] [id number] (Bld) [#/Vol]0.17 10*3/uLNormal0.02-0.50Firelands Regional Medical CenterComment on above:Performed By: #### CMP, CBCAD #### [facility] [address], [place] [id number]/100 WBC (Bld)2.3 %NormalNoNewark Hospital SpecialistComment on above:Performed By: #### CMP, CBCAD #### [facility] [address], [place] [id number] distribution width (RBC) [Ratio]16.4 %High 11.0-15.0Firelands Regional Medical CenterComment on above:Performed By: #### CMP, CBCAD #### [facility] [address], [place] [id number] (Bld) [Volume fraction]42.9 %Yevkpa89.0-47.0 [facility] SpecialistComment on above:Performed By: #### CMP, CBCAD #### [facility] [address], [place] [id number] (Bld) [Mass/Vol]13.5 g/zQEztfll86.6-15.5[facility] SpecialistComment on above:Performed By: #### CMP, CBCAD #### [facility] [address], [place] [id number] (Bld) [#/Vol]2.7 10*3/uLNormal0.9-3.9NoNewark Hospital SpecialistComment on above:Performed By: #### CMP, CBCAD #### [facility] [address], [place] [id number]/100 WBC (Bld)36.1 %NormalSuburban Community Hospital & [facility] SpecialistComment on above:Performed By: #### CMP, CBCAD #### [facility] [address], [place] [id number] (RBC) [Entitic mass]27.7 wpHafput74.0-33.0NoNewark Hospital SpecialistComment on above:Performed By: #### CMP, CBCAD #### [facility] [address], [place] [id number] (RBC) [Mass/Vol]31.5 g/dLLow32.0-36.0[facility] SpecialistComment on above:Performed By: #### CMP, CBCAD #### [facility] [address], [place] [id number] (RBC) [Entitic vol]88 zKYlesiy77-083Nnsuigdy [facility] SpecialistComment on above:Performed By: #### CMP, CBCAD #### [facility] [address], [place] [id number] (Bld) [#/Vol]0.8 10*3/uLNormal0.2-0.9[facility] SpecialistComment on above:Performed By: #### CMP, CBCAD #### [facility] [address], [place] [id number]/100 WBC (Bld)10.8 %[facility] SpecialistComment on above:Performed By: #### CMP, CBCAD #### [facility] [address], [place] [id number] (Bld) [#/Vol]3.7 10*3/uLNormal1.5-7.8NoNewark Hospital SpecialistComment on above:Performed By: #### CMP, CBCAD #### [facility] [address], [place] [id number]/100 WBC (Bld)49.2 %[facility] SpecialistComment on above:Performed By: #### CMP, CBCAD #### [facility] [address], [place] [id number] mean volume (Bld) [Entitic vol]11.00 fLNormal 7.50-12.50NoNewark Hospital SpecialistComment on above:Performed By: #### CMP, CBCAD #### [facility] [address], [place] [id number] (Bld) [#/Vol]246 10*3/xTOiduwa495-404Mqvxacil [facility] SpecialistComment on above:Performed By: #### CMP, CBCAD #### [facility] [address], [place] [id number] (Bld) [#/Vol]4.88 10*6/uLNormal3.90-5.20NoNewark Hospital SpecialistComment on above:Performed By: #### CMP, CBCAD #### [facility] [address], [place] [id number]-PD24.1 tWUysz74.0-50.0NoNewark Hospital Specialist Comment on above:Performed By: #### CMP, CBCAD #### [facility] [address], [place] [id number] (Bld) [#/Vol]7.5 10*3/uLNormal3.8-11.0NoNewark Hospital SpecialistComment on above:Performed By: #### CMP, CBCAD #### [facility] [address], [place] [id number] Metabolic Panelon 28-45-6506Pueadbp [Mass/Vol] 4.2 g/dLNormal3.6-5.1[facility] SpecialistComment on above:Performed By: #### CMP, CBCAD #### [facility] [address], [place] [id number]/Globulin [Mass ratio]1.7 {ratio}Normal1.0-2.5NoUniversity Hospitals Parma Medical CenterComment on above:Performed By: #### CMP, CBCAD #### [facility] [address], [place] [id number] [Catalytic activity/Vol]71 U/DDqzfem73-588Rszecfuo [facility] SpecialistComment on above:Performed By: #### CMP, CBCAD #### [facility] [address], [place] [id number] [Catalytic activity/Vol]12 U/LNormal6-33NoNewark Hospital SpecialistComment on above:Result Comment: 10/22/2021 Female reference range changed.Performed By: #### CMP, CBCAD #### [facility] [address], [place] [id number] gap [Moles/Vol]18 mmol/SUvzhzy90-68Dkumckhn [facility] SpecialistComment on above:Result Comment: Effective 11/27/2019 reference range changed.Performed By: #### CMP, CBCAD #### [facility] [address], [place] [id number] [Catalytic activity/Vol]15 U/LNormal9-34NoNewark Hospital SpecialistComment on above:Performed By: #### CMP, CBCAD #### [facility] [address], [place] [id number] [Mass/Vol]0.33 mg/dLNormal0.30-1.20NoNewark Hospital SpecialistComment on above:Performed By: #### CMP, CBCAD #### [facility] [address] [place], [place] [id number]/CREA35 RatioHigh6-22NortBarberton Citizens HospitalDredge Engineer Comment on above:Performed By: #### CMP, CBCAD #### [facility] [address] [place], [place] [address]Vqajojl [Mass/Vol]9.4 mg/dLNormal8.6-10.2[facility] SpecialistComment on above:Performed By: #### CMP, CBCAD #### [facility] [address] [place] [id number] [Moles/Vol]106 mmol/PIspwcv29-751Qqmatesc [facility] SpecialistComment on above:Performed By: #### CMP, CBCAD #### [facility] [address], [place] [id number] [Moles/Vol]24 mmol/WYhlwss82-35Nefxzhln [facility] SpecialistComment on above:Performed By: #### CMP, CBCAD #### [facility] [address], [place] [id number] [Mass/Vol]0.9 mg/dLNormal0.6-1.4NortBarberton Citizens Hospital SpecialistComment on above:Performed By: #### CMP, CBCAD #### [facility] [address] [facility], [place] [id number] mL/min/1.15u1Irawqw>60NortBar[facility]ton [facility] SpecialistComment on above:Performed By: #### CMP, CBCAD #### [facility] [address] [place], [place] [address]86kUPKYUW84 mL/min/1.89q2Gmt>60NortBarberton Citizens HospitalDredge Engineer Comment on above:Performed By: #### CMP, CBCAD #### [facility] [address] [place], [place] [address]Ghksyqpx (S) [Mass/Vol]2.5 g/dLNormal1.9-3.7NortBarberton [facility] SpecialistComment on above:Performed By: #### SANTOS, CBCAD #### [facility] [address], [place] [id number] [Mass/Vol]84 mg/lTYlhfzs37-46Xlmgmgbo [facility] SpecialistComment on above:Result Comment: For FASTING Glucose --- ADA reference ranges: Normal 65-99 mg/dl Prediabetes 100-125 Diabetes >/= 126Performed By: #### CMP, CBCAD #### [facility] [address], [place] [id number] [Moles/Vol]4.3 mmol/LNormal3.5-5.5NoNewark Hospital SpecialistComment on above:Performed By: #### CMP, CBCAD #### [facility] [address], [place] [address]Inhhjms [Mass/Vol]6.7 g/dLNormal6.1-8.1[facility] SpecialistComment on above:Performed By: #### CMP, CBCAD #### [facility] [address], [place] [address]Qfskjx [Moles/Vol]143 mmol/JOuvead976-452Mxizpzos [facility] SpecialistComment on above:Performed By: #### CMP, CBCAD #### [facility] [address], [place] [address]71Solk nitrogen [Mass/Vol]33 mg/dLHigh7-25NoUniversity Hospitals Parma Medical CenterComment on above:Performed By: #### CMP, CBCAD #### [facility] [address], [place] [address]Hbvqynutk 12-03-4480Qtxqgwi [Mass/Vol]10.0 mg/dLNormal 8.4-10.2[facility] Diabetes Care CenterComment on above:Performed By: #### 1030, 1035, 4500, 4510, 4520, 4581 #### [facility] Unless Otherwise Noted [address] [place] [address] / COLA #8224/CLIA # [id number] 11-75-4723Yyziurenpe [Mass/Vol]0.9 mg/dLNormal0.5-1.0[facility] Care CenterComment on above:Performed By: #### 1030, 1035, 4500, 4510, 4520, 4581 #### [facility] Unless Otherwise Noted [address] [place] [address] / COLA #4724/CLIA # [id number] [Mass/Vol]74.8 KgNormalEndocrine and Diabetes Care CenterComment on above:Performed By: #### 1030, 1035, 4500, 4510, 4520, 4581 #### [facility] Unless Otherwise Noted [address] [place] [address] / COLA #4724/CLIA # [id number] [Mass/Vol]64.8 ml/m1.73NormalEndocrine and Diabetes Care CenterComment on above:Performed By: #### 1030, 1035, 4500, 4510, 4520, 4581 #### [facility] Unless Otherwise Noted [address] [address] / COLA #4724/CLIA # [id number] [Mass/Vol]65.1 ml/m1.73NormalEndocrine and Diabetes Care CenterComment on above:Performed By: #### 1030, 1035, 4500, 4510, 4520, 4581 #### [facility] Unless Otherwise Noted [address] [address] / COLA #4724/CLIA # [id number] [Mass/Vol]78.7 ml/m1.73NormalEndocrine and Diabetes Care CenterComment on above:Performed By: #### 1030, 1035, 4500, 4510, 4520, 4581 #### [facility] Unless Otherwise Noted [address] [place] [address] / COLA #4724/CLIA # [id number] 51-91-0008VW81.80 pg/mLNormal2.45-5.93 [facility] CenterComment on above:Performed By: #### 1030, 1035, 4500, 4510, 4520, 4581 #### [facility] Unless Otherwise Noted [address] [place] [address] / COLA #4724/CLIA # [id number] 35-03-9575Qjls T4 [Mass/Vol]1.93 ng/dLNormal 0.78-2.44[facility] Care CenterComment on above:Performed By: #### 1030, 1035, 4500, 4510, 4520, 4581 #### [facility] Unless Otherwise Noted [address] [place] [address] / COLA #4724/CLIA # [id number] 70-75-5217JDN Qn0.57 uIU/mlNormal0.47-4.68 [facility] CenterComment on above:Performed By: #### 1030, 1035, 4500, 4510, 4520, 4581 #### [facility] Unless Otherwise Noted [address] [place] [address] / COLA #4724/CLIA # [id number] D 25on 47-68-8609CRJMBGT D 2551.5 ng/ml Hivfnv06.0-100.0[facility] Care CenterComment on above:Result Comment: Deficient <20 Insufficient 20-<30 Sufficient 30-100 Potiential Toxicity >100Performed By: #### 1030, 1035, 4500, 4510, 4520, 4581 #### [facility] Unless Otherwise Noted [address] [address] / COLA #4724/ABISAI # [id number] Metabolic Profon 05-06-2018(cont.)NormalParkview HealthComment on above:Result Comment: Average GFR for 70 or more years old: 75 mL/min/1.73sq mChronic Kidney Disease: <60 mL/min/1.73sq mKidney failure: <15 mL/min/1.73sq meGFR calculated using average adult body mass. Additional eGFR calculator available at:http://www.Junar/multiple_crcl_2012.htmPerformedat [address] [address] ([phone] By: #### CDP, BMP ####[address] [phone] gap14 mmol/LNormal9-17Parkview HealthComment on above:Performed By: #### CDP, BMP ####[address] [phone] mg/dLNormal8.6-10.4Parkview HealthComment on above:Performed By: #### CDP, BMP ####[address] [phone] mmol/LNormal 98-107Parkview HealthComment on above:Performed By: #### CDP, BMP ####[address] [address] HI4 26 mmol/XSbgpak62-93TqroiParkview HealthComment on above:Performed By: #### CDP, BMP ####[address] [address] Nugsygmwmn8.91 mg/dLHigh0.50-0.90[facility] Comment on above:Performed By: #### CDP, BMP ####[address] [address] eGFR (non-black)mL/min/{1.73_m2}Normal >60Parkview HealthComment on above:Performed By: #### CDP, BMP ####[address] [address] Glucose mass conc99 mg/mWIbmcrz98-57ZyhchTriHealth Good Samaritan HospitalComment on above: Performed By: #### CDP, BMP ####[address] [address] Potassium molar conc4.2 mmol/LNormal3.7-5.3 Park[facility] HealthComment on above:Performed By: #### CDP, BMP ####[address] [address] Rzbsqt565 mmol/EMfbh938-650FtlwbParkview HealthComment on above:Performed By: #### CDP, BMP ####[address] [address] Urea mg/dLNormal8-23[facility] Comment on above:Performed By: #### CDP, BMP ####[address] [address] BUN/CRE RatioNOT REPORTEDNormal9-20 Parkview HealthComment on above:Performed By: #### CDP, BMP ####[facility] [place] [address] Staging:NOT REPORTEDNormalParkview HealthComment on above:Performed By: #### CDP, BMP ####[address] [phone] with Diffon 84-20-0728Ucc. Basophil0.10 k/uLNormal0.0-0.2[facility] Holzer HospitalComment on above:Result Comment: Performed at [facility] [address] [place] [address] Performed By: #### CDP, BMP ####[address] [address] Abs.Neutrophil (Seg)4.00 k/uLNormal1.3-9.1Mer[facility] Holzer HospitalComment on above:Performed By: #### CDP, BMP ####[address] [address] Basophils/100 WBC Auto (Bld)1 %Normal0-2Mer[facility] Holzer HospitalComment on above:Performed By: #### CDP, BMP ####[address] [address] Rkwtdnbcamk7.20 10*3/uLNormal0.0-0.4[facility] Comment on above:Performed By: #### CDP, BMP ####[address] [address] Eosinophils/100 leukocytes2 %Normal0-4 Parkview HealthComment on above:Performed By: #### CDP, BMP ####[address] [phone] distribution width Auto Ratio (RBC)13.9 %Xdeotr70.5-14.9Parkview HealthComment on above:Performed By: #### CDP, BMP ####[address] [place] [address] Erythrocytes (RBC)4.68 10*6/uLNormal4.0-5.2[facility] Holzer HospitalComment on above:Performed By: #### CDP, BMP ####[address] [place] [address] Hematocrit (HCT)41.8 %Zlxixl43-58IhgnfParkview Health Comment on above:Performed By: #### CDP, BMP ####[address] [address] Hemoglobin mass conc (Bld)13.7 g/dL Qlfdxd91.0-16.0Park[facility] HealthComment on above:Performed By: #### CDP, BMP ####[address] [address] Bdzsrxsfxix6.20 10*3/uLNormal1.0-4.8[facility] Comment on above:Performed By: #### CDP, BMP ####[facility] [place] [address].[place] [address] Lymphocytes/100 xpzdgehbar69 %Normal 24-44Parkview HealthComment on above:Performed By: #### CDP, BMP ####[address] [address] MCH 29.3 jsNsdyxh36-21HsdfzParkview HealthCombronson battle creek hospital on above:Performed By: #### CDP, BMP ####[facility] [place] [address] MCHC mass conc (RBC)32.8 g/pEKkatue64-27KhkxxParkview HealthComment on above:Performed By: #### CDP, BMP ####[address] [address] SDY53.3 pTLdrkuq52-384 [facility] HealthComment on above:Performed By: #### CDP, BMP ####[address] [address] Qroxtwjej7.90 10*3/uLNormal0.1-1.3MercMercy Health – The Jewish HospitalComment on above:Performed By: #### CDP, BMP ####[address] [address] Monocytes/100 rbnfvkyfiq88 %High1-7[facility] Comment on above:Performed By: #### CDP, BMP ####[address] [address] Neutrophil (Seg)47 %Xusxve73-16EeftpParkview HealthComment on above:Performed By: #### CDP, BMP ####[address] [address] Platelet mean volume (PMV)10.3 fLNormal6.0-12.0Parkview HealthComment on above: Performed By: #### CDP, BMP ####[address] [address] Hpgyhierk377 10*3/rWPhukxw974-239YejrrParkview HealthComment on above:Performed By: #### CDP, BMP ####[address] [address] WBC (Leukocytes) 8.4 10*3/uLNormal3.5-11.0Parkview HealthComment on above:Performed By: #### CDP, BMP ####[address] [place] [address] Auto Diff PerformedNOT REPORTEDNormalParkview HealthComment on above:Performed By: #### CDP, BMP ####[address] [place] [address] Erythrocyte morphologyNOT REPORTEDNormUniversity Hospitals Samaritan Medical CenterComment on above:Performed By: #### CDP, BMP ####[address] [phone] (RBC)NOT REPORTEDNormalParkview HealthComment on above:Performed By: #### CDP, BMP ####[address] [place] [address] Granulocytes/100 WBC (Bld)NOT REPORTEDNormal 0.00-0.30Parkview HealthComment on above:Performed By: #### CDP, BMP ####[address] [address] Immature granulocytes #/vol (Bld)NOT WPUGQSTHUhmezw2Gedxg[address] [place] [address] Comment on above:Performed By: #### CDP, BMP ####[address] [address] PlateletsNOT REPORTEDNormUniversity Hospitals Samaritan Medical CenterComment on above:Performed By: #### CDP, BMP ####[address] [address] WBC MorphologyNOT REPORTEDNormUniversity Hospitals Samaritan Medical CenterComment on above:Performed By: #### CDP, BMP ####[address] [phone] Vital Signs Date TimeVital SignValuePerforming RxvsmysoaIbvgzoqw04-08-1972 15:07-0500Body .[address] [place], [place] 1807011-04-2025 15:07-0500Body mass index (BMI) [Ratio]25.05 kg/m[address]11-04-2025 15:07-0500Body npccxrrupxs46.5 [degF]Pfo [address] [place], [place] 1807011-04-2025 15:07-0500Body .[address] kg[address]fo [address] [place], [place] 1807011-04-2025 15:07-0500Diastolic blood dovhoyzs85 mm[Hg]Pfo [address] [place], [place] 1807011-04-2025 15:07-0500Heart rate72 /minPfo [address] [place], [place] 1807011-04-2025 15:07-0500Respiratory rate17 /minPfo [address] [place], [place] 1807011-04-2025 15:07-9450EdY7% (BldA) [Mass fraction]93 %[address]11-04-2025 15:07-0500Systolic blood fvlnyruk889 mm[Hg] [address]09-26-2025 13:07-0400Body .[address] [place], [place] 2911409-26-2025 13:07-0400Body mass index (BMI) [Ratio]24.61 kg/m2fo [address] [place], [place] 1807009-26-2025 13:07-0400Body cxvnyytrwpa49.2 [degF][address]09-26-2025 13:07-0400Body sewbbj22.05 kgPfo [address] [facility]09-26-2025 13:07-0400Diastolic blood chawzzow51 mm[Hg]o [address] [place], [place] 1807009-26-2025 13:07-0400Heart rate70 /minPfo [address] [place], [place] 1807009-26-2025 13:07-0400Respiratory rate16 /minPfo [address] [place], [place] 1807009-26-2025 13:07-8931SvC0% (BldA) [Mass fraction]96 %[address]09-26-2025 13:07-0400Systolic blood cyxojhib847 mm[Hg][address]08-29-2025 13:14-0400Body milfnw272.[address] [place], [place] 5163608-29-2025 13:14-0400Body mass index (BMI) [Ratio]24.94 kg/m2Pfo [address] [facility]08-29-2025 13:14-0400Body dadpltqqgmc72.49 [degF]Pfo [address] [facility]08-29-2025 13:14-0400Body .[address] [place], [place] 5163608-29-2025 13:14-0400Diastolic blood mm[Hg]Pfo [address] [facility]08-29-2025 13:14-0400Heart rate71 /minPfo [address] [place], [place] 5163608-29-2025 13:14-0400Respiratory rate16 /minPfo [address] [place], [place] 5163608-29-2025 13:14-2061McB9% (BldA) [Mass fraction]95 %Pfo [address] [place], [place] 5163608-29-2025 13:14-0400Systolic blood suepctia307 mm[Hg]Pfo [address] [place], [place] 5163608-19-2025 13:02-0400Body odhivg867 cmBia Cao MD Work Phone: [phone] [address]Guzudhlxua85-20-9676 13:02-0400Body mass index (BMI) [Ratio]24.16 kg/m2Bia Cao MD Work Phone: [place] [address]Uyickcwmpq24-41-1264 13:02-0400Body oupygb10.87 kgBia Cao MD Work Phone: [phone] [address]Dphwhrnnmz86-97-8970 13:02-0400Diastolic blood nogjgugw04 mm[Hg]Bia Cao MD Work Phone: [phone]) [phone] Schwartz StreetFxsybufdxj61-00-0375 13:02-0400Heart rate71 /min Bia Cao MD Work Phone: [phone]) [phone] Schwartz StreetDiunraxwah70-05-6519 13:02-0400Respiratory rate18 /minBia Cao MD Work Phone: [phone]) [phone] Schwartz StreetEbihzprdyx48-00-1416 13:02-9855JzC3% (BldA) [Mass fraction]98 %Bia Cao MD Work Phone: [facility] CampusRhpklrygdm75-26-5036 13:02-0400Systolic blood ugnnusma481 mm[Hg]Bia Cao MD Work Phone: [facility] CampusZrbpjsfcfb89-25-0865 13:57-0400Body udwcvf167.5 cmRandall WILKINSON Work Phone: [facility]07-23-2025 13:57-0400Body mass index (BMI) [Ratio]25.6 kg/d6LlayqrijRandall WILKINSON Work Phone: [facility]07-23-2025 13:57-0400Body .5 kgRandall WILKINSON Work Phone: [facility]07-23-2025 13:57-0400Diastolic blood nbouxvlg24 mm[Hg]Randall WILKINSON Work Phone: [facility]07-23-2025 13:57-0400Heart rate 74 /minRandall WILKINSON Work Phone: [facility]07-23-2025 13:57-0400Systolic blood luxmxiqc731 mm[Hg]Randall WILKINSON Work Phone: [facility]07-23-2025 12:30-0400Body uqnspd503.[address] [place], [place] 5163607-23-2025 12:30-0400Body mass index (BMI) [Ratio]25.71 kg/m2Pfo [address] [place], [place] 5163607-23-2025 12:30-0400Body gctocxzqvdw14.5 [degF][address]07-23-2025 12:30-0400Body lqgkvu22.[address] [place], [place] 5163607-23-2025 12:30-0400Diastolic blood odixdgru88 mm[Hg]Pfo [address] [place], [place] 5163607-23-2025 12:30-0400Heart rate68 /minPfo [address] [place], [place] 5163607-23-2025 12:30-0400Respiratory rate16 /minPfo [address] [place], [place] 5163607-23-2025 12:30-6187IpH3% (BldA) [Mass fraction]98 %Pfo [address] [place], [place] 5163607-23-2025 12:30-0400Systolic blood ncogwnla037 mm[Hg] Pfo [address] [place], [place] 5163606-25-2025 10:10-0400Body .[address] [facility] [facility]25 10:10-0400Body mass index (BMI) [Ratio]25.86 kg/m2Pfo [address] [place], [place] 5163606-25-2025 10:10-0400Body cknwdojofez12.81 [degF]Pfo [address] [place], [place] 5163606-25-2025 10:10-0400Body vecqfp11.14 kgPfo [address] [facility]06-25-2025 10:10-0400Diastolic blood hfxzseib61 mm[Hg]Pfo [address] [place], [place] 5163606-25-2025 10:10-0400Heart rate77 /minPfo [address] [place], [place] 5163606-25-2025 10:10-0400Respiratory rate16 /minPfo [address] [place], [place] 5163606-25-2025 10:10-8180RmZ0% (BldA) [Mass fraction]98 %o [address] [place], [place] 5163606-25-2025 10:10-0400Systolic blood mm[Hg]Pfo [address] [place], [place] 5163605-28-2025 13:24-0400Body .5 cmJohn Johnson MD Work Phone: 1([phone])862-[address] [place], [place] 5163605-28-2025 13:24-0400Body mass index (BMI) [Ratio]26.31 kg/t9WsbwftjJohn Johnson MD Work Phone: [phone](873)399-[address] [place], [place] 5163605-28-2025 13:24-0400Body .27 kgJohn Johnson MD Work Phone: 9([phone])289-[address] [place], [place] 5163605-28-2025 13:24-0400Diastolic blood xedlhbht03 mm[Hg]John Johnson MD Work Phone: 5([phone])333-[address] [place], [place] 5163605-28-2025 13:24-0400Heart rate 73 /minJohn Johnson MD Work Phone: 1(761)747-[address] [place], [place] 5163605-28-2025 13:24-0400Systolic blood mm[Hg]John Johnson MD Work Phone: 1(277)407-[address] [place], [place] 5163605-28-2025 10:18-0400Body lkfbat912.[address] [place], [place] 5163605-28-2025 10:18-0400Body mass index (BMI) [Ratio]26.48 kg/m2Pfo [address] [place], [place] 5163605-28-2025 10:18-0400Body dvbxlsafxll64.1 [degF]Pfo [address] [place], [place] 5163605-28-2025 10:18-0400Body wtdfqa73.[address] [place], [place] 5163605-28-2025 10:18-0400Diastolic blood erdalrqy91 mm[Hg]Pfo [address] [place], [place] 5163605-28-2025 10:18-0400Heart rate77 /minPfo [address] [place], [place] 5163605-28-2025 10:18-0400Respiratory rate15 /minPfo [address] [place], [place] 5163605-28-2025 10:18-8717NrC7% (BldA) [Mass fraction]96 %Pfo [address] [place], [place] 5163605-28-2025 10:18-0400Systolic blood wzxhoqco929 mm[Hg] Pfo [address] [place], [place] 5163605-19-2025 13:33-0400Body xtozbd904 cmBia Cao MD Work Phone: [facility] CampusRebjycchog99-94-9617 13:33-0400Body mass index (BMI) [Ratio]25.86 kg/m2Bia Cao MD Work Phone: [facility] CampusOcgfiibmuk58-46-9517 13:33-0400Body zlsffu79.22 kgBia Cao MD Work Phone: [facility] CampusKzoydwihef25-89-2241 13:33-0400Diastolic blood jkxrafzj55 mm[Hg]Bia Cao MD Work Phone: [facility] CampusAjhxjyjhfy29-38-7937 13:33-0400Heart rate75 /min Bia Cao MD Work Phone: [facility] CampusLuesgkdirn11-51-7047 13:33-0400Respiratory rate18 /minBia Cao MD Work Phone: [facility] CampusDgdsnpwxmw94-45-8323 13:33-0248JqP9% (BldA) [Mass fraction]96 %Bia Cao MD Work Phone: [facility] CampusCbwlzknngo59-67-6970 13:33-0400Systolic blood eydpkmgd662 mm[Hg]Bia Cao MD Work Phone: [facility] CampusXcpeukmxfi74-52-1384 10:37-0400Body mmrlpa565.[address] [place], [place] 5163604-30-2025 10:37-0400Body mass index (BMI) [Ratio] 26.95 kg/m2fo [address] [place], [place] 5163604-30-2025 10:37-0400Body temperature 97.81 [degF]Pfo [address] [place], [place] 5163604-30-2025 10:37-0400Body hnyevk56.[address]04-30-2025 10:37-0400Diastolic blood genmwppc69 mm[Hg]Pfo [address] [place], [place] 5163604-30-2025 10:37-0400Heart rate63 /minPfo [address] [facility]04-30-2025 10:37-0400Respiratory rate15 /minPfo [address] [facility]04-30-2025 10:37-3959OaH1% (BldA) [Mass fraction]99 %[address]04-30-2025 10:37-0400Systolic blood bsusndet461 mm[Hg] o [address] [place], [place] 5163604-08-2025 14:30-0400Body ncleae649.5 cmRandall WILKINSON Work Phone: [facility]04-08-2025 14:30-0400Body mass index (BMI) [Ratio]26.89 kg/a7MjbvnzhrRandall WILKINSON Work Phone: [facility]04-08-2025 14:30-0400Body subkgx97.68 kgMicraoul Jauregui PA Work Phone: [facility]04-08-2025 14:30-0400Diastolic blood padqzqnf00 mm[Hg]Randall Jauregui PA Work Phone: [facility]04-08-2025 14:30-0400Heart rate 85 /minRandall Jauregui PA Work Phone: [facility]04-08-2025 14:30-0400Systolic blood ltsgisgz09 mm[Hg]Randall Jauregui PA Work Phone: [facility]03-28-2025 13:05-0400Body .[address] [place], [place] 5163603-28-2025 13:05-0400Body mass index (BMI) [Ratio]27.03 kg/m2Pfo [address] [place], [place] 5163603-28-2025 13:05-0400Body cstjhckfxlu50.4 [degF]Pfo [address] [place], [place] 5163603-28-2025 13:05-0400Body tnimge29.[address] [place], [place] 5163603-28-2025 13:05-0400Diastolic blood pncroieq03 mm[Hg]Pfo [address] [place], [place] 5163603-28-2025 13:05-0400Heart rate85 /minPfo [address] [place] 5163603-28-2025 13:05-0400Respiratory rate18 /minPfo [address] [place], [place] 5163603-28-2025 13:05-2307KxO5% (BldA) [Mass fraction]96 %Pfo [address] [place], [place] 5163603-28-2025 13:05-0400Systolic blood iqbcmnsb856 mm[Hg] Pfo [address] [place], [place] 5163603-24-2025 08:08-0400Body uqvusd759.5 Krys Dorsey ESOL TEACHER-MECHANICAL ASSEMBLER Work Phone: [facility]03-24-2025 08:08-0400Body mass index (BMI) [Ratio]27.22 kg/m2Yoanna Dorsey APRN-MECHANICAL ASSEMBLER Work Phone: [facility]03-24-2025 08:08-0400Body bizbxj68.5 kgYoanna Dorsey ESOL TEACHER-MECHANICAL ASSEMBLER Work Phone: [facility]03-24-2025 08:08-0400Diastolic blood etkcuerk05 mm[Hg]Yoanna Dorsey ESOL TEACHER-MECHANICAL ASSEMBLER Work Phone: [facility]03-24-2025 08:08-0400Heart rate 77 /minSeulalia Dorsey ESOL TEACHER-MECHANICAL ASSEMBLER Work Phone: [facility]03-24-2025 08:08-0400Systolic blood dbkyzldt055 mm[Hg]Yoanna Dorsey ESOL TEACHER-MECHANICAL ASSEMBLER Work Phone: [facility]03-04-2025 16:22-0500Body ekfxju985 cmBia Cao MD Work Phone: [facility] CampusLzgjnqhdnd22-52-4079 16:22-0500Body mass index (BMI) [Ratio]25.37 kg/m2Bia Cao MD Work Phone: [facility] CampusPdlwlnfect00-13-6610 16:22-0500Body temperature 97.39 [degF]Bia Cao MD Work Phone: [facility] CampusUjrvpmoasf21-36-4800 16:22-0500Body vxfjyb87.95 kgBia Cao MD Work Phone: [facility] CampusHvzeksvwmx79-60-8273 16:22-0500Diastolic blood hlstiorj51 mm[Hg]Bia Cao MD Work Phone: [facility] CampusZspskswhsr37-22-9570 16:22-0500Heart rate87 /min Bia Cao MD Work Phone: [facility] CampusSlmajasupn80-90-8079 16:22-0500Respiratory rate18 /minBia Cao MD Work Phone: [place] [address]Euhpnrcfhr01-24-6785 16:22-9090AmS2% (BldA) [Mass fraction]96 %Bia Cao MD Work Phone: [facility] CampusAaxcsuozkr40-24-7977 16:22-0500Systolic blood paferejx253 mm[Hg]Bia Cao MD Work Phone: [address] StreetCnylrpoeix18-70-7067 14:20-0500Body jekuwy754 cm Bia Cao MD Work Phone: [address] StreetNtzktrueuz35-86-9638 14:20-0500Body mass index (BMI) [Ratio]26.04 kg/m2Bia Cao MD Work Phone: [phone])453-60[facility] CampusOvnddjrvdv23-54-1830 14:20-0500Body iirhhl05.68 kgBia Cao MD Work Phone: [address] StreetCbcbjnpeax10-02-2474 14:20-0500Diastolic blood ipkjzvzi77 mm[Hg]Bia Cao MD Work Phone: 1(733)193-[address] [place], [place] 6[address]25 14:20-0500Heart rate86 /min Bia Cao MD Work Phone: [address] StreetHhuamusxkb26-43-7708 14:20-0500Respiratory rate18 /minBia Cao MD Work Phone: [address] StreetSjhopuxfwe36-13-3140 14:20-2021WdN8% (BldA) [Mass fraction]94 %Bia Cao MD Work Phone: 1([phone])166-91[facility] CampusJkcykfudgp18-96-4178 14:20-0500Systolic blood twnkenxk797 mm[Hg]Bia Cao MD Work Phone: [phone] CampusRazpwrbohh59-57-7233 12:54-0500Body cm [address]02-21-2025 12:54-0500Body mass index (BMI) [Ratio] 26.22 kg/m2Pfo [address] [place], [place] 5163602-21-2025 12:54-0500Body vxjcciykcyw20.6 [degF][address]02-21-2025 12:54-0500Body imztyl28.13 kgPfo [address] [facility]02-21-2025 12:54-0500Diastolic blood ksiqwzps23 mm[Hg][address]02-21-2025 12:54-0500Heart rate82 /minPfo [address] [place], [place] 5163602-21-2025 12:54-0500Respiratory rate16 /minPfo [address] [place], [place] 5163602-21-2025 12:54-0159FiS6% (BldA) [Mass fraction]96 %Pfo [address] [place], [place] 5163602-21-2025 12:54-0500Systolic blood fjjbacir597 mm[Hg]Pfo [address] [place], [place] 5163602-20-2025 15:07-0500Body lydema453 cmPfo [address] [place] [address] 01-11-2025 15:07-0500Body mass index (BMI) [Ratio]26.22 kg/m2Pfo [address] [place], [place] 5163602-20-2025 15:07-0500Body smxovemasru89.11 [degF]Pfo [address] [place], [place] 5163602-20-2025 15:07-0500Body .13 kg[address] [place], [place] 5163602-20-2025 15:07-0500Diastolic blood qjmsxgiz33 mm[Hg]Pfo [address] [place], [place] 5163602-20-2025 15:07-0500Heart rate83 /minPfo [address] [place] [address] 01-11-2025 15:07-0500Respiratory rate16 /minPfo [address] [place] [address] 01-11-2025 15:07-8925FjB7% (BldA) [Mass fraction]96 %[address]02-20-2025 15:07-0500Systolic blood mm[Hg]Pfo [address] [place], [place] 5163602-18-2025 13:53-0500Body dbaqaw229 cmKaterin Alvarado MD Work Phone: [facility] CampusSnefkgnvrk64-67-4336 13:53-0500Body mass index (BMI) [Ratio]26.57 kg/y2CiliytKaterin Alvarado MD Work Phone: [facility] CampusLrguxfftbz63-39-1346 13:53-0500Body .04 kgKaterin Alvarado MD Work Phone: [facility] CampusWrfxmtqlcd13-06-2286 13:53-0500Diastolic blood ousoflzi49 mm[Hg]Katerin Alvarado MD Work Phone: [facility] CampusXnchbhhxbq86-42-6196 13:53-0500Heart rate87 /min Katerin Alvarado MD Work Phone: [facility] CampusEztuxpdenr98-40-6626 13:53-0500Systolic blood qmswxutw757 mm[Hg]Katerin Alvarado MD Work Phone: [facility] CampusPqvobqfuib53-36-5873 09:30-0500Body hhouxh505 cm Bia Cao MD Work Phone: [facility] CampusSqrmdxngxi85-10-0195 09:30-0500Body mass index (BMI) [Ratio]26.57 kg/m2Bia Cao MD Work Phone: [phone] CampusTzegpfoorh27-43-9059 09:30-0500Body mekzjp24.04 kgBia Cao MD Work Phone: [phone])512-51[facility] CampusMivgkyarop62-05-2471 09:30-0500Diastolic blood mmnktjyw93 mm[Hg]Bia Cao MD Work Phone: 1(800)720-85[facility] CampusDhsbipnwqr36-16-7599 09:30-0500Heart rate85 /min Bia Cao MD Work Phone: 1(477)240-10[facility] CampusQqtbxtfgba09-52-8353 09:30-0500Respiratory rate18 /minBia Cao MD Work Phone: 1(880)028-68[facility] CampusFumarocwui46-08-2063 09:30-0698UvK3% (BldA) [Mass fraction]97 %Bia Cao MD Work Phone: [phone])212-77[facility] CampusMchjdsebwz96-03-8957 09:30-0500Systolic blood mm[Hg]Bia Cao MD Work Phone: [facility] CampusFxxsfjmklv93-01-0807 13:03-0500Body umbirn805 cm Maria C Kramer MD Work Phone: [facility]01-28-2025 13:03-0500Body mass index (BMI) [Ratio]26.39 kg/q2YtevyimMaria C Kramer MD Work Phone: [facility]01-28-2025 13:03-0500Body .59 kgMaria C Kramer MD Work Phone: [facility]01-28-2025 13:03-0500Diastolic blood ewgjopfj04 mm[Hg]Maria C Kramer MD Work Phone: [facility]01-28-2025 13:03-0500Heart rate 86 /minMaria C Kramer MD Work Phone: [facility]01-28-2025 13:03-0500Systolic blood bijzrxzs291 mm[Hg]Maria C Kramer MD Work Phone: [facility]01-17-2025 11:49-0500Body tzgzge055 cmBia Cao MD Work Phone: [facility] CampusPbbmhrvrku11-99-8275 11:49-0500Body mass index (BMI) [Ratio]26.18 kg/m2Bia Cao MD Work Phone: [facility] CampusQgtjdobgkw55-16-9754 11:49-0500Body .04 kgBia Cao MD Work Phone: [facility] CampusLbbviivbpv72-83-3126 11:49-0500Diastolic blood mm[Hg]Bia Cao MD Work Phone: [facility] CampusXtgbshibqz00-00-1664 11:49-0500Heart rate79 /min Bia Cao MD Work Phone: [facility] CampusEoyujrxkxo25-17-3135 11:49-3395QeP3% (BldA) [Mass fraction]93 %Bia Cao MD Work Phone: [facility] CampusQhjdhekoop54-89-3320 11:49-0500Systolic blood aecjqhss070 mm[Hg]Bia Cao MD Work Phone: [facility] CampusCkgnfufood30-94-0746 11:48-0500Body mass index (BMI) [Ratio]26.55 kg/a9DvilxilJohn Johnson MD Work Phone: 1(842)907-[address] [place], [place] 5163601-15-2025 11:48-0500Body cruvia64.99 kgJohn Johnson MD Work Phone: 1(369)804-[address] [place], [place] 5163601-15-2025 11:48-0500Diastolic blood vvpwgipq05 mm[Hg]John Johnson MD Work Phone: 1(849)119-[address] [place], [place] 5163601-15-2025 11:48-0500Heart rate 87 /minJohn Johnson MD Work Phone: 1(613)528-[address] [place], [place] 5163601-15-2025 11:48-0500Systolic blood bhbtrgoc044 mm[Hg]John Johnson MD Work Phone: 1(788)121-[address] [place], [place] 5163612-09-2024 13:39-0500Body ifuoju099 cmSteven Rusher DPM Work Phone: [phone]12-09-2024 13:39-0500Body mass index (BMI) [Ratio]26.18 kg/x6Whwjtb Meghan DPM Work Phone: [phone]12-09-2024 13:39-0500Body sunhfn50.04 kgSteven Rusher DPM Work Phone: [phone] CampusIgnkakgmcq68-45-5153 13:39-0500Body mass index (BMI) [Ratio]26.17 kg/m2Rose Velasquez APRN.MECHANICAL ASSEMBLER Work Phone: [facility]11-05-2024 13:39-0500Body ehnxsc99 kg Rose Velasquez APRN.MECHANICAL ASSEMBLER Work Phone: [facility]11-05-2024 13:39-0500Diastolic blood ltgncrna01 mm[Hg]Rose Velasquez APRN.MECHANICAL ASSEMBLER Work Phone: [place] [address]-05-2024 13:39-0500Heart rate91 /min Rose Velasquez APRN.MECHANICAL ASSEMBLER Work Phone: [facility]11-05-2024 13:39-0834HnU4% (BldA) [Mass fraction]96 %Rose Velasquez APRN.MECHANICAL ASSEMBLER Work Phone: [phone]) 792-4585[address]05-2024 13:39-0500Systolic blood mm[Hg]Rose Velasquez APRNStevenMECHANICAL ASSEMBLER Work Phone: [facility]09-23-2024 15:57-0400Body ounnru300 cm Bia Cao MD Work Phone: [place] [address]Rkyduxynxs35-56-4172 15:57-0400Body mass index (BMI) [Ratio]26.18 kg/m2Bia Cao MD Work Phone: [phone] 312-910451 [address] StreetZguruluclx84-60-7921 15:57-0400Body uqkept82.04 kgBia Cao MD Work Phone: [place] [address]Whptldetvk82-41-4688 15:57-0400Diastolic blood paunrfij98 mm[Hg]Bia Cao MD Work Phone: [place] [address]Ngyihvxcac59-46-6770 15:57-0400Heart rate88 /min Bia Cao MD Work Phone: [phone] [address]Hzofyqlroc22-73-7286 15:57-4249MjP2% (BldA) [Mass fraction]95 %Bia Cao MD Work Phone: [place] [address]Andwcvfnab16-38-5953 15:57-0400Systolic blood ntyepsyh694 mm[Hg]Bia Cao MD Work Phone: [place] [address]Brcmhddpvw76-00-0813 11:40-0400Body cm Bia Cao MD Work Phone: [place] [address]Fndafzjril20-47-9511 11:40-0400Body mass index (BMI) [Ratio]26.43 kg/m2Bia Cao MD Work Phone: [place] [address]Wpsabawkpx42-93-0538 11:40-0400Body ulettx03.68 kgBia Cao MD Work Phone: [place] [address]Wmdnatsljz38-26-4567 11:40-0400Diastolic blood orpmhzzz31 mm[Hg]Bia Cao MD Work Phone: [place] [address]Grjqfczrhk97-57-2452 11:40-0400Heart rate77 /min Bia Cao MD Work Phone: [facility] CampusQroiahkxik57-42-3887 11:40-0400Respiratory rate20 /minBia Cao MD Work Phone: [phone] [address]Giltyyiphr37-63-9604 11:40-8397WqM4% (BldA) [Mass fraction]97 %Bia Cao MD Work Phone: [place] [address]Urhnifzjkv23-22-6186 11:40-0400Systolic blood dtkdychq005 mm[Hg]Bia Cao MD Work Phone: [phone])[phone] [place] [address]-19-2024 15:39-0400Body cm Bia Cao MD Work Phone: [phone] [address]-19-2024 15:39-0400Body mass index (BMI) [Ratio]27.1 kg/m2Bia Cao MD Work Phone: [phone] [place] [address]-19-2024 15:39-0400Body emphgz58.4 kg Bia Cao MD Work Phone: [phone])196-[address] [place] [address]-19-2024 15:39-0400Diastolic blood mm[Hg]Bia Cao MD Work Phone: 1(646)220-[address] [place] [address]-19-2024 15:39-0400Heart rate90 /min Bia Cao MD Work Phone: [place] [address]Zufwpwbnhh27-33-6451 15:39-0400Respiratory rate18 /minBia Cao MD Work Phone: [phone] [address]Eagdbqrjvf71-51-7594 15:39-1877VqO2% (BldA) [Mass fraction]97 %Bia Cao MD Work Phone: [phone]-[place] [address]Cmvwjhvrya55-87-6905 15:39-0400Systolic blood rxuwstfb063 mm[Hg]Bia Cao MD Work Phone: [phone]05-14-2024 11:29-0400Body cm Donnell Hoover MD Work Phone: c[facility] HospitalVedgxp65-40-3742 11:29-0400Body mass index (BMI) [Ratio]27.18 kg/i2MydsdDonnell Hoover MD Work Phone: [place] Hhmhfe79-43-3272 11:29-0400Body temperature 97.7 [degF]Donnell Hoover MD Work Phone: [place] Awqfai86-55-8363 11:29-0400Body wpseph59.6 kgDonnell Hoover MD Work Phone: [place] Gimijh36-09-2331 11:29-0400Diastolic blood magbcjtb10 mm[Hg]Donnell Hoover MD Work Phone: [place] Rlvhuo34-50-4783 11:29-0400Heart rate80 /min Donnell Hoover MD Work Phone: [place] Dayxjk04-35-8290 11:29-0400Respiratory rate 18 /minDonnell Hoover MD Work Phone: [place] Rhxyqq10-28-2523 11:29-2432CcX6% (BldA) [Mass fraction]96 %Donnell Hoover MD Work Phone: [place] Aaqvfb91-34-2053 11:29-0400Systolic blood rnehhvkl846 mm[Hg]Donnell Hoover MD Work Phone: [facility] Encounters Encounter DateEncounter TypeCare ProviderFacilityStart: 97-52-2534sykzgcogezWFTO MILLERFacility:[facility] Ohiotart: 09-25-2025 End: 99-51-9050ajmjvhenxiOhy Infusion Chair [address] [place] [address] - Medical OncologyComment on above:Osteoporosis, unspecified osteoporosis type, unspecified pathological fracture presence (Primary Dx)Start: 09-24-2025 ambulatoryJOHN HOGANBOLUProMedica Kaiser Permanente Medical Centertart: 09-19-2025 End: 68-57-0571DqikegJlup F Bower MD Work Phone: [facility] GardenComment on above:Primary insomnia; Major depressive disorder, single episode, in full remissionStart: 09-03-2025 End: 93-43-8121kxebgyduweAlmyqex Vytautas Giedraitis Facility:[facility] [place] Start: 08-17-2025 End: 64-12-9208olpyvuglcdCkn Infusion Chair 5DOur [facility] of the Lake [facility] OncologyComment on above:Osteoporosis, unspecified osteoporosis type, unspecified pathological fracture presence (Primary Dx)Start: 08-16-2025 ambulatoryMarion Hospitaltart: 08-06-2025 End: 96-74-0840pdqudfxpwrJagqitc Vickiytautas Giedraitis MDFacility:[facility] Start: 07-25-2025 End: 84-23-7380EnxypcKtaj F Bower MD Work Phone: noAd[facility]ist Health [facility] HeartComment on above: Gastroesophageal reflux disease without esophagitisStart: 07-20-2025 End: 90-57-5716uwqvkadasaEns Infusion Chair 1DPrairieville Family Hospital - Medical OncologyComment on above:Osteoporosis, unspecified osteoporosis type, unspecified pathological fracture presence (Primary Dx)Start: 07-16-2025 End: 60-71-7540Jbtljq-up encounterJohn Johnson MD Work Phone: [facility] CenterComment on above:CalciumStart: 37-85-8944vpeghlsceh Marion Hospitaltart: 07-10-2025 End: 11-44-1864Nculnn Devan Cao MD Work Phone: noDominican Hospitaltart: 07-10-2025 End: 68-06-1779Diojay Devan Cao MD Work Phone: noDominican Hospitaltart: 07-10-2025 End: 76-40-6911Htctwa outpatient visit 25 minutesBia Cao MD Work Phone: noAdventist Health [facility]akersfield HeartComment on above:Stage 3b chronic kidney disease (CKD) ([facility]); Major depressive disorder, single episode, in full remission ; Age-related osteoporosis without current pathological fracture ; Moderate persistent asthma without complication (HCC); Diastolic dysfunction with chronic heart failure (HCC); Chronic idiopathic constipation; Mild intermittent asthma without complication (HCC); Interstitial pulmonary disease, unspecified (HCC)Start: 07-10-2025 End: 28-60-1288ghhijwwxdkLBQL F BOWERNot AvailableStart: 07-02-2025 End: 26-45-8343gcvdihuikfFmeomxyPolina Hansen MDFacility:[facility] [place] Start: 06-26-2025 End: 43-95-6307poavwfyhofFLID BOWERNot AvailableStart: 06-26-2025 End: 62-59-4681Cwkcezekq encounterBia Cao MD Work Phone: NODominican Hospitaltart: 06-19-2025 End: 66-57-3301BkncbqYofmbr Majors NP Work Phone: [facility] MedicineComment on above:Primary insomnia; Major depressive disorder, single episode, in full remissionStart: 06-13-2025 End: 58-74-9496Npllym-up encounterJohn Johnson MD Work Phone: proMedselect specialty hospital Adult Endocr[facility], [facility] CenterComment on above:CalciumStart: 06-13-2025 End: 35-04-8760Coageh outpatient visit 15 minutesRandall WILKINSON Work Phone: [facility] Genito-Urinary SurgeonsComment on above:Kidney stones (Primary Dx); Urge incontinenceStart: 06-13-2025 End: 43-14-5751eqcljvxxihYOOTKKEY I MURPHYParkview Health [facility] Start: 06-13-2025 End: 33-56-7711kvzfkfigszHsr Infusion Chair [facility] - Medical OncologyComment on above:Osteoporosis, unspecified osteoporosis type, unspecified pathological fracture presence (Primary Dx)Start: 06-12-2025 ambulatoryJOHN JOHNSONKettering Health Hamiltontart: 05-16-2025 End: 80-43-4483zmucxfoaofNuz Infusion Chair 1DyoandyWar Memorial Hospital OncologyComment on above:Osteoporosis, unspecified osteoporosis type, unspecified pathological fracture presence (Primary Dx)Start: 05-15-2025 [facility] Hospitaltart: 05-14[facility] End: 30-70-9367sdvfihijsvPicvmbxDov Hansen MDFacility:[facility] Start: 05-08-2025 End: 78-28-4164Gkdtlpioe encounterHinan Alvarado MD Work Phone: [facility] ENTComment on above:outgoing referralStart: 04-23-2025 End: 52-96-7546anvoyzgjooIlitecpDov Hansen MDFacility:[facility] Start: 04-18-2025 End: 75-97-7779Epfhwd outpatient visit 25 minutesJohn Johnson MD Work Phone: [facility] HospitalComment on above:Osteoporosis, unspecified osteoporosis type, unspecified pathological fracture presence (Primary Dx); Hypothyroidism, unspecified type; Age-related osteoporosis without current pathological fracture; Vitamin D deficiencyStart: 09-11-0899omhjzxypioXAORHUAKettering Health Main Campustart: 04-18-2025 End: 72-84-3507byrlorpwlrNxl Infusion Chair 1[facility] - Medical OncologyComment on above:Osteoporosis, unspecified osteoporosis type, unspecified pathological fracture presence (Primary Dx)Start: 04-13-2025 [facility] HospitalStart: 04-09-2025 End: 69-44-6458Sxxqjy flowsMagaly Cao MD Work Phone: noms FNR FMStart: 04-09-2025 End: 57-18-1723Fgagfb Devan Cao MD Work Phone: n[facility] FNR FMStart: 04-09-2025 End: 71-76-3358Mtqgje outpatient visit 25 minutesBia Cao MD Work Phone: noms FNR FMComment on above:Intractable migraine with aura without status migrainosus (CMS/HCC) (Primary Dx); Fall, subsequent encounter; Essential hypertension (CMS/HCC)Start: 04-09-2025 End: 89-61-6272vowgczrjgdSUEP F BOWERNot AvailableStart: 03-22-2025 End: 27-58-9132FvgtplOzfb F Bower MD Work Phone: noms FNR FMComment on above:Moderate persistent asthma, unspecified whether complicated (CMS/HCC)Start: 03-21-2025 End: 53-10-6440gktdokkixsBpw Infusion Chair 1[facility] - Medical OncologyComment on above:Osteoporosis, unspecified osteoporosis type, unspecified pathological fracture presence (Primary Dx)Start: 03-19-2025 End: 24-32-3703iokdjbnlvjDTJVQJNMultiCare [facility] HospitalStart: 02-27-2025 End: 28-38-7687Wrxhve outpatient visit 15 minutesRandall WILKINSON Work Phone: [facility] Genito-Urinary SurgeonsComment on above:Urge incontinence (Primary Dx); Frequent UTIStart: 02-27-2025 End: 80-78-0729sdsfhsgrgwUUFSKBDH I MURPHYOhioHealth [facility]field Hospital HospitalStart: 02-19-2025 End: 33-70-2575Jxfexb Casa MAS Work Phone: [facility], A Department of [facility] HospitalComment on above:Migraine without aura and without status migrainosus, not intractable (Primary Dx); Essential tremor; Cervical radiculopathy; Bilateral occipital neuralgiaEssential hypertension (CMS/HCC) (Primary Dx)Start: 02-16-2025 End: 59-55-0115zkiaiirtnlDdc Infusion Chair 1Dnery Hunter [facility] Medical OncologyComment on above:Osteoporosis, unspecified osteoporosis type, unspecified pathological fracture presence (Primary Dx)Start: 02-14-2025 End: 08-14-5667wslsjksrmoENOQVVQGrays Harbor Community Hospitalt HospitalStart: 02-13-2025 End: 34-18-4579paqzwjhlvyWUDT F BOWERNot AvailableStart: 02-12-2025 End: 28-52-9175Wvozmddri encounterBia Cao MD Work Phone: NOWD FNR FMStart: 02-12-2025 End: 13-26-3166iofwthttfbTVYCCorey Hospitaltart: 02-12-2025 End: 22-99-4013Gltlfq outpatient visit 15 minutesYoanna Willian ESOL TEACHER-MECHANICAL ASSEMBLER Work Phone: [facility], [facility] Department of [facility] CenterComment on above:Migraine without aura and without status migrainosus, not intractable (Primary Dx); Essential tremor; Psychophysiological insomniaStart: 02-09-2025 End: 16-41-9188Isexviwgq encounterBlanche SheltonDeckerville Community Hospital - Medical OncologyStart: 02-08-2025 End: 44-91-2836Kwaspb OnlyGladys Zambrano LPNProMedica Adult Endocrinology, A Department of [facility] CenterComment on above:Osteoporosis, unspecified osteoporosis type, unspecified pathological fracture presence (Primary Dx)Start: 02-06-2025 End: 41-30-5319aeekdwcupqLDGJ F BOWERNot AvailableStart: 01-31-2025 End: 35-28-6332GuzttgDvdq F Bower MD Work Phone: [facility] FNR FMComment on above:Stress incontinence of urineStart: 01-23-2025 End: 02-33-0086mplksyorrnWBOI F BOWERNot AvailableStart: 01-23-2025 End: 46-78-7261Rsdiac outpatient visit 15 minutesBia Cao MD Work Phone: [facility] FNR FMComment on above:Acute bronchitis, unspecified organism (Primary Dx); Flank painStart: 01-23-2025 End: 18-16-4636Ekmxoa flowsheetBia Cao MD Work Phone: [facility] FNR FMStart: 01-23-2025 End: 34-95-6191Zhbzom Devan Cao MD Work Phone: NOQA FNR FMStart: 59-31-8699dearhmuexeMTVA F BOWER [facility] HospitalStart: 01-15-2025 End: 43-88-8566Foqosf outpatient visit 15 minutesBia Cao MD Work Phone: noms FNR FMComment on above:Influenza A (Primary Dx); Sore throat; Acute coughStart: 01-15-2025 End: 83-15-5927izgqrnjueaMGSJ F BOWERNot AvailableStart: 01-15-2025 End: 38-58-8069Lnrqrh Devan Cao MD Work Phone: noms FNR FMStart: 01-15-2025 End: 18-48-4402Iftrhc Devan Cao MD Work Phone: noms FNR FMStart: 01-12-2025 End: 93-65-4299qdytejnxeqNhd Infusion Chair 1DPrairieville [facility] - Medical OncologyComment on above:Osteoporosis, unspecified osteoporosis type, unspecified pathological fracture presence (Primary Dx)Start: 01-12-2025 End: 73-03-3168orphauflsmDXGP F BOWERProMedica [facility]ermanente Medical Centertart: 01-11-2025 End: 51-55-1436rygapjpepiPyp Infusion Chair 1DPrairieville Family Hospital - Medical OncologyStart: 01-09-2025 End: 98-47-0415fzusqdaeckOVSDNS H TIMMISNot AvailableStart: 01-09-2025 End: 98-76-5561Cggtvt outpatient new 45 minutesKaterin Alvarado MD Work Phone: NOTJ CI ENTComment on above:Presbylarynges (Primary Dx); HoarseStart: 01-03-2025 End: 64-10-9873WgzumiIhaz F Bower MD Work Phone: NOKJ FNR FMComment on above:Mixed hyperlipidemia (CMS/HCC); AnxietyStart: 01-01-2025 End: 38-95-8581Dqssmkf encounter procedureNoms Fnr Fm NurseNOMS FNR FMComment on above:Hematuria, unspecified typeStart: 01-01-2025 End: 62-89-9673soltvjvwwzDUMI BOWERNot AvailableStart: 01-01-2025 End: 19-77-6375Txcjnrako encounterBia Cao MD Work Phone: [facility] FNR FMComment on above:Acute cystitis with hematuria (Primary Dx)Start: 66-09-5326ortipxofrwXHGS F [facility] Hospitaltart: 12-26-2024 End: 37-06-5055Zsojne flowsMagaly Cao MD Work Phone: [facility] FNR FMStart: 12-26-2024 End: 76-99-8283Ovwggg Devan Cao MD Work Phone: NOFJ FNR FMStart: 12-26-2024 End: 82-76-9080qnlejdwhygCWRN F BOWERNot AvailableStart: 12-26-2024 End: 57-27-4520Rvgntm outpatient visit 25 minutesBia Cao MD Work Phone: [facility] FNR FMComment on above:Hoarse (Primary Dx); Primary insomnia; Major depressive disorder, single episode, in full remission ([facility]); Fall, subsequent encounter; Gastroesophageal reflux disease without esophagitisStart: 12-25-2024 End: 47-58-2864Ygvsfqjsg encounterBia Cao MD Work Phone: NOJJ FNR FMStart: 12-23-2024 End: 94-97-1107Ggbxdbyfn department patient visitBIA ALVARADOMain Campus Medical Centertart: 12-22-2024 End: 58-01-5505Gknolb Med Johnson MD Work Phone: proMedqxh Adult Endocrinology, A Department of [facility] CenterComment on above:Osteoporosis, unspecified osteoporosis type, unspecified pathological fracture presence (Primary Dx)Start: 12-19-2024 End: 58-16-0020Cscvoh outpatient visit 15 minutesMaria C Kramer MD Work Phone: [facility] Physicians Genito-Urinary SurgeonsComment on above:Urge incontinence (Primary Dx)Start: 12-19-2024 End: 62-79-7628oihwzxyunwQTDYCQU G SCHUSTERParkview Health [facility] Start: 12-18-2024 End: 19-85-2091hzpabiqnplSbhlsqh Vytautas Giedraitis Facility:[facility] [place] Start: 12-12-2024 End: 65-79-5053IxyomxXhef F Bower MD Work Phone: [facility] FNR FMComment on above:Gastroesophageal reflux disease without esophagitisStart: 12-11-2024 End: 78-59-2543Bqoxjh OnlyBia Cao MD Work Phone: [facility] FNR FMComment on above:Acute cystitis without hematuria (Primary Dx)Start: 12-08-2024 End: 95-18-9268Ugkenh Devan Cao MD Work Phone: [facility] FNR FMStart: 12-08-2024 End: 52-51-3719Txzgjw Devan Cao MD Work Phone: [facility] FNR FMStart: 12-08-2024 End: 58-21-4308logfvoljoeEFSJ F BOWERNot AvailableStart: 12-08-2024 End: 04-36-1674Oossmw outpatient visit 25 minutesBia Cao MD Work Phone: [facility] FNR FMComment on above:Urinary frequency (Primary Dx); Essential hypertension (CMS/HCC); Age-related osteoporosis without current pathological fracture (CMS/HCC)Start: 12-06-2024 End: 13-35-4663Cpvzlm outpatient visit 25 minutesJohn Johnson MD Work Phone: [facility], A Department of [facility] CenterComment on above:Hypothyroidism, unspecified type (Primary Dx); Age-related osteoporosis without current pathological fracture; Vitamin D deficiencyStart: 12-06-2024 End: 21-60-2606Vztkwa Reguloyudith Juan Manuel NProMedselect specialty hospital Adult Endocrinology, A Department of [facility] CenterComment on above:Osteoporosis, unspecified osteoporosis type, unspecified pathological fracture presence (Primary Dx)Start: 11-29-2024 End: 16-60-7407UcyyczYrkw F Bower MD Work Phone: noms FNR FMComment on above:Anemia, unspecified type (Primary Dx)Start: 11-28-2024 End: 24-12-7260bawwzehbaeYTLKHRD GIEDRAITIS [facility] HospitalStart: 11-20-2024 End: 75-07-4426ybtufrnewhAwauocu Vytautas Jade GARCIAFacility:[facility] [place] Start: 11-06-2024 End: 70-10-6882IytohiTkhd F Bower MD Work Phone: noms FNR FMComment on above:Hyperlipidemia, unspecified hyperlipidemia type (CMS/HCC)Start: 10-30-2024 End: 05-78-3917Dmqkcz flowsheetSteven A Rusher DPM Work Phone: noms PODIATRYStart: 10-30-2024 End: 57-11-6574Ssjhhf flowsheetSteven A Rusher DPM Work Phone: noms PODIATRYStart: 10-30-2024 End: 98-42-9323Itfpewc encounter procedureSteven A Rusher DPM Work Phone: noms PODIATRYComment on above:Dermatophytosis of nail (Primary Dx); Dystrophic nail; Pain around toenail, right foot; Pain around toenail, left footStart: 10-30-2024 End: 55-93-4472yvahhykkbsZAEZMQ A RUSHERNot AvailableStart: 10-04-2024 End: 27-11-9471Hyrlhshzy encounterTara Eddie VIEYRA Work Phone: [facility] Brain Tumor CenterComment on above:Patient QuestionStart: 09-26-2024 End: 83-79-2994Jzjxibk encounter procedureTara Eddie VIEYRA Work Phone: NeurosurgeryComment on above:Benign neoplasm of meninges (HCC) (Primary Dx); DizzinessStart: 09-26-2024 End: 87-43-1769Ldibynwdpe hospital visit by physicianMri [facility] (Lg Bore/1.5t)Radiology MRIComment on above: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]Start: 08-29-2024 End: 77-44-2200uhwewdrjnaMGLEWOUWillow [facility]rest [facility] Start: 08-14-2024 End: 47-91-4649Spwfxl outpatient visit 15 minutesBia Cao MD Work Phone: [facility] FNR FMComment on above:Acute bronchitis, unspecified organism (Primary Dx); Seasonal allergic rhinitis due to pollenStart: 08-14-2024 End: 53-56-7467xolcanbohcPNCH F BOWERNot AvailableStart: 08-14-2024 End: 11-64-4817Yvphzh flowsMagaly Cao MD Work Phone: [facility] FNR FMStart: 08-14-2024 End: 43-66-9101Ftbyra Devan Cao MD Work Phone: [facility] FNR FMStart: 08-08-2024 End: 14-99-9718Ctgras Devan Cao MD Work Phone: [facility] FNR FMStart: 08-08-2024 End: 66-71-0545Ippvgq Devan Cao MD Work Phone: [facility] FNR FMStart: 08-08-2024 End: 16-51-2162Bhcxti outpatient visit 25 minutesBia Cao MD Work Phone: [facility] FNR FMComment on above:Hoarse (Primary Dx); Purulent postnasal drainage; Primary insomnia; Gastroesophageal reflux disease without esophagitisStart: 08-08-2024 End: 81-73-8910xznmywrynvTGJF F BOWERNot AvailableStart: 07-14-2024 End: 99-12-2448Wrjuhz Jl Cao MD Work Phone: [facility]OM[facility] FNR FMComment on above:Acute cystitis without hematuria (Primary Dx)Start: 07-13-2024 End: 68-75-7267omcaqagafySZMJSt. Vincent [facility] Ambulatory PPGStart: 07-11-2024 End: 39-19-9727Stfyhw Jl Cao MD Work Phone: [facility] FNR FMComment on above:Acute cystitis without hematuria (Primary Dx)Start: 07-10-2024 End: 57-59-6200Vytlkz outpatient visit 25 minutesBia Cao MD Work Phone: noms FNR FMComment on above:Urinary frequency (Primary Dx); Dysuria; Chronic idiopathic constipation; Chronic right-sided thoracic back painStart: 07-10-2024 End: 87-79-6837Cjxoyk flowsMagaly Cao MD Work Phone: [facility] FNR FMStart: 07-10-2024 End: 68-04-7166Egieqe Devan Cao MD Work Phone: [facility] FNR FMStart: 40-37-0024Agzute Rob Hoover MD Work Phone: [facility] Brain Tumor CenterComment on above: Intracranial meningioma (HCC) (Primary Dx); Benign neoplasm of meninges (HCC)Start: 04-04-2024 End: 27-55-7591Bhwsnzh encounter procedureDonnell Hoover MD Work Phone: [facility] Brain Tumor CenterComment on above: Intracranial meningioma (HCC) (Primary Dx); Sensorineural hearing loss (SNHL) of right ear, unspecified hearing status on contralateral side; DizzinessStart: 37-04-5986Wrcqduyjv encounterNeurology ProviderNeurologyComment on above:Received Outside Medical Records (External referral to [facility] [place]/); triage; Nurse Triage Call; AppointmentStart: 01-06-2024 End: 49-64-5019bdwsycdqqyYlmsunni Wright RIGHT OF [address] BUYER Work Phone: NOMS FB PTComment on above:General weakness (Primary Dx); History of fallingStart: 54-85-0343Jjiybq Kashmir Snyder RIGHT [employer] [address] BUYER Work Phone: NOUL FB PTStart: 01-04-2024 End: 35-45-6737Pvntlw Kashmir Snyder [employer] [address] BUYER Work Phone: [facility] FB PTStart: 01-04-2024 End: 02-62-8434Oizzchctw Result EncounterGeneric External Data ProviderNOMS External Department UnsolicitedStart: 01-04-2024 End: 77-42-1115rpwirxoqheXkqqnnrz Wright RIGHT [employer] [address] BUYER Work Phone: NOQF FB PTComment on above:General weakness (Primary Dx); History of fallingStart: 77-46-4454LuiomiVnwx F Bower MD Work Phone: NOMT FNR FMComment on above:Mixed hyperlipidemia (CMS/HCC) (Primary Dx); Stress incontinence of urineStart: 19-59-4895Rtomz Flores Salazar PT Work Phone: NOTN FB PTStart: 12-23-2023 End: 55-10-0992xhbhgpbickUsoasezu Wright RIGHT OF [address] BUYER Work Phone: noms FB PTComment on above:General weakness (Primary Dx); History of fallingStart: 10-12-2022 End: 74-71-1998pitgcqonosASSDCincinnati Shriners Hospitaltart: 09-28-2022 End: 54-16-7711eazmdmrwdlBCCEGalion Community Hospitaltart: 05-16-2018 End: 54-27-4811PjaexvnolvXEMCGUF J MORSEMohiohealth riverside methodist hospitaloracio [facility] Centertart: 05-06-2018 End: 49-73-3802TscsgusxirSOEZ HOELZLMercy Health St. Joseph Warren Hospitaltart: 05-02-2018 Patient encounter statusJohn Johnson MD Work Phone: [facility] Work Phone: Procedures DateProcedureProcedure DetailPerforming ClinicianStart: 21-91-9416Ohxnay-up visitFollow-upMICHELLE I JUVENTINOStart: 95-97-7473Xxthd dip stick/tablet rgnt auto w/o microscopyMichelle I Juventino WILKINSON Work Phone: Start: 31-69-2701Qxpae depression screening assessment Yoanna Dorsey ESOL TEACHER-MECHANICAL ASSEMBLER Work Phone: Start: 64-46-0882Bwbyy dip stick/tablet rgnt non-auto w/o micrscRolly Cao MD Work Phone: Start: 94-95-3854YNRHKB COVID-19/Farhat Cao MD Work Phone: Start: 62-24-5055Rroov dip stick/tablet rgnt non-auto w/o micrscpBreann Majors ADMINISTRATOR SOCIAL WELFARE Work Phone: Start: 89-37-7551Dimijvk bacterial quanttative colony count Maria G Cao MD Work Phone: Start: 77-45-9142OZDQUxob F Bower MD Work Phone: Start: 12-08-2024 End: 46-56-5926Drndd dip stick/tablet rgnt non-auto w/o micrscRolly Cao MD Work Phone: Start: 18-57-3070Xutsdc-up visitFollow-upJOHN JOHNSONStart: 26-66-3957Utp brain brain stem w/o w/contrast materialPasahntanu Hoover MD Work Phone: start: 51-67-3326XCNMKV COVID-19/Farhat Cao MD Work Phone: Start: 27-49-6958Oqsaw depression screening assessment John Johnson MD Work Phone: start: 95-53-3221Egoes dip stick/tablet rgnt non-auto w/o micrscpMary Anny Cao MD Work Phone: Start: 19-15-9766GS CERVICAL SPINE W FLEX/EXTGeneric External Data ProviderStart: 09-16-0830KGUUAEFCR PATIENTMARK [facility] AKRONEStart: 98-28-1104JKSWYSPCLSS [facility] AKRONEStart: 66-94-7141Touwymudcq pulse oximetryMARK [facility] AKRONEStart: 11-03-9264LZMSWVOUL DEEP BREATHING AND COUGHINGMARK [facility] AKRONEStart: 84-78-7943HCIPTZ PHYSICIAN (SPECIFY)LENNY JESSICAEStart: 89-29-6427TPWANUA COMMUNICATIONMARK [facility] AKRONEStart: 27-92-7674TMFUYYON OXYGEN THERAPY PROTOCOLMARK [facility] AKRONEStart: 68-81-5742NNJSDR PERIPHERAL IVMARK [facility] AKRONEStart: 12-91-3266GDTHX SIGNSMARK [facility] AKRONEStart: 23-41-7158Conrj metabolic panel calcium totalMARK [facility] AKRONEStart: 05-38-2117Dtakw count complete auto&auto difrntl wbcMARK [facility] Plan of Treatment DateCare ActivityDetailAuthorStart: 00-90-4444Ibvxloxi ScreeningDiabetes ScreeningKettering Healthtart: 90-86-8556Duuvasl ScreeningTobacco Screening [facility] SystemStart: 00-02-2001Jyldamv ScreeningTobacco Screening [facility] SystemStart: 71-99-9704Puoxhbl ScreeningTobacco Screening [facility] SystemStart: 69-43-1545Xialccx ScreeningTobacco Screening [facility] SystemStart: 02-26-2026 End: 99-79-8719Byaoexe encounter xyhwcrfyd68/07/2026 1:00 PM EDT Office Visit [facility] [address] [place] [phone] Maria C Kramer MD [address] [place] [address] [facility]Ur[facility] SurgeonsStart: 51-24-9278Nrbyouu ScreeningTobacco ScreeningMercy Health Urbana Hospitalca Health SystemStart: 36-99-0065Tbmbhrcvdc ScreeningDepression ScreeningACMC Healthcare System SystemStart: 69-71-3909Fjyl Risk ScreeningFall Risk ScreeningACMC Healthcare System SystemStart: 99-69-9485Pquvsas ScreeningTobacco ScreeningMercy Health Urbana Hospitalca [facility] SystemStart: 01-14-2026 End: 31-45-7680JL Abdomen APX-ray abdomen ap 1 view Imaging Routine Kidney stones Expected: 01/14/2026, Expires: 06/13/2026[facility] Work Phone: Comment on above:Expected: 01/14/2026, Expires: 06/13/2026Start: 86-54-5458Abfxudv ScreeningTobacco ScreeningACMC Healthcare System SystemStart: 83-92-2745Aejrhsb ScreeningTobacco ScreeningACMC Healthcare [facility] System Start: 48-43-1841Mjwosjh ScreeningTobacco ScreeningACMC Healthcare System SystemStart: 11-07-2025 End: 11-83-7605Wwgpulb encounter vecbvundc59/17/2025 1:40 PM EST Office Visit [facility] [address] [place] [phone] Bia Cao MD [address] [place], [place] [phone] [facility] Tampatart: 10-26-2025 End: 99-33-8259savkxdbvzp06/05/2025 1:30 PM EST Infusion Meggan Harrison [facility] - Medical Oncology [address] [place] [phone] Meggan Harrison [facility] - Medical OncologyStart: 09-21-2025 End: 19-80-5007zxosbmdygr18/31/2025 1:00 PM EDT Infusion Meggan Harrison [facility] - Medical Oncology [address] [place] [address] [facility] - Medical OncologyStart: 08-17-2025 End: 02-66-2756kezvhiyzfw19/26/2025 1:00 PM EDT Infusion Meggan Harrison [facility] - Medical Oncology [address] [place] [phone] Meggan Harrison [facility] Medical OncologyStart: 08-16-2025 End: 69-32-4183Sbnujcy encounter procedureHolzer Medical Center [facility] Neurology, A Department of [facility] Hospitaltart: 41-93-9358ACKLD-19 Vaccine ( season) COVID-19 Vaccine ()[facility] SystemStart: 07-23-2025 COVID-19 Vaccine ()COVID-19 Vaccine () [facility] SystemStart: 34-31-3525NXDJC-19 Vaccine () COVID-19 Vaccine ()[facility] HealthcareStart: 70-70-3928Lqcrwcnat vaccinationACMC Healthcare System SystemStart: 92-40-2173Psalbcczgt Screening Depression ScreeningFirstHealth Montgomery Memorial Hospitaltart: 07-11-2025 End: 34-15-1285wdkbrzucnj39/20/2025 12:00 PM EDT Infusion Meggan Harrison [facility] - Medical Oncology [address] [place] [address] Meggan Harrison [facility] Medical OncologyStart: 07-10-2025 End: 468121-ddxpwbgzpwlbqm D3 [Mass/volume] in Serum or PlasmaVitamin D 25 hydroxy Lab Routine Age-related osteoporosis without current pathological fracture Expected: 07/10/2025 (Approximate), Expires: 07/10/2026NOSt. [facility] Comment on above:Expected: 07/10/2025 (Approximate), Expires: 07/10/2026Start: 07-10-2025 End: 42-69-9810UIS W Auto Differential panel - BloodCBC and differential Lab Routine Stage 3b chronic kidney disease (CKD) ([facility]) Major depressive di sorder, single episode, in full remission Expected: 07/10/2025 (Approximate), Expires: 07/10/2026[facility] Work Phone: Comment on above:Expected: 07/10/2025 (Approximate), Expires: 07/10/2026Start: 07-10-2025 End: 12-12-7440Kkiozkfphbwja metabolic 2000 panel - Serum or PlasmaComprehensive metabolic panel Lab Routine Stage 3b chronic kidney disease (CKD) ([facility]-HCC) Expected:07/10/2025, Expires: 07/10/2026[facility] HealthcareComment on above: Expected: 07/10/2025, Expires: 07/10/2026Start: 07-10-2025 End: 67-10-4203Kdnbzmn encounter procedureNOMS FNR FMComment on above:Arrived Start: 06-13-2025 End: 63-71-5746Sckyoui encounter tudsmddvz35/23/2025 2:00 PM EDT Office Visit [facility] [address] [place] [phone] Randall Jauregui I, PA [address] [place] [address] [facility] SurgeonsStart: 06-13-2025 End: 55-38-0215eekjsdectv10/23/2025 12:30 PM EDT Infusion Meggan Harrison [facility] - Medical Oncology [address] [place] [phone] Meggan Harrison [facility] - Medical OncologyStart: 38-57-2497Srvcvckzi vaccinationInfluenza Vaccine (#1)[facility] HealthcareComment on above:Postponed from 07/23/2024 (Other Medical Reasons)Start: 05-16-2025 End: 62-23-8243wemkzzogdv60/25/2025 10:30 AM EDT Infusion Meggan Harrison [facility] - Medical Oncology [address] [place] [phone] Meggan Harrison [facility] - Medical OncologyStart: 95-12-4683CMPXH-19 Vaccine ( season)COVID-19 Vaccine ()[facility] SystemStart: 04-18-2025 End: 91-92-0178UXN Skeletal system Views for bone densityDexa scan central skeletal Imaging Routine Osteoporosis, unspecified osteoporosis type, unspecifiedpathological fracture presence Expected: 04/18/2025, Expires: 04/18/2026[facility] Work Phone: comment on above:Expected: 04/18/2025, Expires: 04/18/2026Start: 04-18-2025 End: 77-43-7930Ujwmycb encounter refwzykpm36/28/2025 1:30 PM EDT Office Visit [facility] Adult Endocrinology, A Department of [facility] [address] [place] [phone] Jonh Johnson MD [address] [facility] [place], [place] [phone] [facility] Adult Endocrinology, A Department of [facility] Hospitaltart: 04-18-2025 End: 98-54-1816qrpfdooovy02/28/2025 10:30 AM EDT Infusion Meggan Harrison [facility] Medical Oncology [address] [place] [phone] Meggan Harrison [facility] - Medical OncologyStart: 04-09-2025 End: 93-15-8646Coqlbjc encounter procedureNOMS FNR FMComment on above:Arrived Start: 04-09-2025 End: 61-09-5939vznzcuolmg27/19/2025 1:00 PM EDT Infusion Meggan Harrison [facility] Medical Oncology [address] [place] [phone] Meggan Harrison [facility] - Medical OncologyStart: 04-06-2025 End: 99-55-5257Bhqoesf encounter zrzbmsofl83/16/2025 10:30 AM EDT Office Visit [facility] [address] [place] [phone] Corey Corbett, DO [address] [facility] [place], [place] [phone] [facility] MedicineStart: 03-12-2025 End: 45-19-0600bmffpnarjq31/21/2025 1:30 PM EDT Infusion Meggan Joeln [facility] [address] [place] [phone] Meggan Harrison [facility] Medical OncologyStart: 49-23-8853Avcf Risk ScreeningFall Risk ScreeningFirstHealth Montgomery Memorial Hospitaltart: 03-09-2025 End: 53-00-0249lzmnylxfxd37/18/2025 1:00 PM EDT Infusion Meggan Harrison [facility] Oncology [address] [place] [phone] Meggandaphne Joeln [facility] Medical OncologyStart: 02-27-2025 End: 28-01-4855Ycgcsug encounter dsjvsghoh92/08/2025 2:30 PM EDT Office Visit [facility] [address] [place] [address] Randall Jauregui PA [address] [place] [address] [facility] SurgeonsStart: 02-16-2025 End: 64-08-1713mvmpwjyywr21/28/2025 1:00 PM EDT Infusion Meggan Joeln [facility] [address] [place] [phone] Meggan Joeln [facility] Medical OncologyStart: 02-13-2025 End: 38-00-3153Ezziezgcgtyu / ancillary services raxezxxuwf91/25/2025 2:00 PM EDT Ancillary Procedure [facility] [address] [place] [phone] [facility] FNR CTStart: 02-12-2025 End: 22-80-0200Lqtmscl encounter procedureProMedica Neurology, A Department of [facility] Hospitaltart: 02-09-2025 End: 80-94-7578trynkehezc18/21/2025 2:00 PM EDT Infusion Meggan Harrison [facility] Oncology [address] [place] [address] Meggan Harrison [facility] Medical OncologyStart: 02-08-2025 End: 00-60-1432anktujjaxu28/20/2025 2:00 PM EDT Infusion Meggan Harrison [facility] Medical Oncology [address] [place] [phone] [facility] Medical OncologyStart: 02-06-2025 End: 00-63-0732Sqqrcaz encounter oprmdzpsf70/18/2025 9:20 AM EDT Office Visit [facility] FNSahra THAKKAR [address] [place] [phone] Bia Cao MD [address] [place], [place] [phone] [facility] FNSahra FMStart: 01-23-2025 End: 17-84-3655Ellgvxbr identified in Urine by CultureUrine culture (clean catch) Microbiology Routine Flank pain Expected: 01/23/2025 (Approximate), Expi res: 01/23/2026NONC HealthcareComment on above:Expected: 01/23/2025 (Approximate), Expires: 01/23/2026Start: 01-23-2025 End: 37-52-9779Duawvmliic complete panel - UrineUrinalysis with reflex microscopic (clean catch) Lab Routine Flank pain Expected: 01/23/2025 (Approx imate), Expires: 01/23/2026[facility] Work Phone: Comment on above:Expected: 01/23/2025 (Approximate), Expires: 01/23/2026Start: 01-18-2025 End: 45-01-7705Ghutvei encounter yachiecjr86/27/2025 11:00 AM EST Office Visit [facility] [address] [place] [address] Yoanna Dorsey, ESOL TEACHER-MECHANICAL ASSEMBLER [address] [place] [address] [facility] Adult NeurologyStart: 01-17-2025 End: 74-97-9555Ovrgeip encounter procedureProMedica Physicians Genito-Urinary SurgeonsStart: 01-15-2025 End: 07-41-1464Cxrtile encounter ysmqiitzh11/24/2025 2:20 PM EST Office Visit [facility] FNR [address] [place] [phone] Bia Cao MD [address] [place], [place] [phone] [facility] DEPARTMENTR FMComment on above:ArrivedStart: 01-12-2025 End: 60-67-3030cukjlsupkq39/21/2025 2:20 PM EST Infusion Meggan L [facility] - Medical Oncology [address] [place] [phone] Meggan L [facility] - Medical OncologyStart: 01-09-2025 End: 02-18-2646Kpuqcgb encounter txpgjpree23/18/2025 1:40 PM EST Office Visit [facility] CI ENT [address] [facility] [address] [place] [address] Katerin Alvarado MD [address] [facility] [address] [place] [address] [facility] CI ENTStart: 01-01-2025 End: 61-80-6426Colprpcz identified in Urine by CultureUrine culture (clean catch) Microbiology Routine Hematuria, unspecified type Expected: 01/01/2025 (A pproximate), Expires: 01/01/2026[facility] Work Phone: Comment on above:Expected: 01/01/2025 (Approximate), Expires: 01/01/2026Start: 01-01-2025 End: 82-99-6707Nyigcyg encounter obitgpbvm35/10/2025 1:30 PM EST Office Visit [facility] FNR FM [address] [facility] [place] [address] [facility] FNR FMStart: 12-26-2024 End: 27-09-1340Ojiinss encounter jeaeedqxc81/04/2025 9:20 AM EST Office Visit [facility] FNR FM [address] [facility] [place] [address] Bia Cao MD [address] [facility] [place], [place] [address] [facility] FNR FMStart: 12-19-2024 End: 43-86-4369Jojiuev encounter bqtnubpzd88/28/2025 12:45 PM EST Office Visit [facility] [address] [place] [phone] Maria C Kramer MD [address] [place] [address] [facility] Genito-Urinary SurgeonsStart: 12-08-2024 End: 06-84-2006Ozbsrjw encounter fkxjoiuku72/17/2025 11:40 AM EST Office Visit [facility] FNR FM [address] [facility] [place] [phone] Bia Cao MD [address] [facility] [place] [address] [facility] FNR FMStart: 01-15-2025Medicare Annual Wellness (AWV)Medicare Annual Wellness (AWV)NOM[facility] HealthcareStart: 10-30-2024 End: 10-21-8412Xjwicoj encounter qtzxbhovd63/09/2024 1:45 PM EST Office Visit [facility] PODIATRY [address] [place] [phone] Santo Christianson DPM [address] [place] [address] ArrivedNOMS FH PODIATRYComment on above:ArrivedStart: 08-28-2024 End: 58-19-1477WW Brain WO and W contrast IVMRI BRAIN WO/W IVCON Radiology Routine Benign neoplasm of meninges (HCC) Expected: 08/28/2024 (Approximate), Expires: 06/08/2025[facility] Work Phone: comment on above:Expected: 08/28/2024 (Approximate), Expires: 06/08/2025Start: 08-14-2024 End: 18-89-2489Cbaaciq encounter qyzrhrvha92/23/2024 4:00 PM EDT Office Visit [facility] FNR FM [address] [facility] [address] [phone], Mary F, MD [address] [place] [address] ArrivedNONC FNR FMComment on above:ArrivedStart: 08-08-2024 End: 33-15-7996Yxawcda encounter ayymuhyql91/17/2024 11:40 AM EDT Office Visit [facility] FNR FM [address] [facility] [place] [address] [phone] Bia Cao MD [address] [place] [address] ArrivedNOMS FNR FMComment on above:ArrivedStart: 08-04-2024 End: 87-41-3046Qqhemhm encounter ubpyuvfwz13/13/2024 11:00 AM EDT Office Visit [facility] FNR FM [address] [facility] [place] [address] [phone] Bia Cao MD [address] [place] [address] [facility] FNR FMStart: 52-31-7490Hguaf-19 Vaccine ()Covid-19 Vaccine ()[facility]: 18-17-2472Knapkdlvu vaccinationKettering Healthtart: 07-10-2024 End: 55-28-9239Vtznsnw encounter whcbvdytm91/19/2024 3:40 PM EDT Office Visit [facility] FNR FM [address] [place] [address] Bia Cao MD [address] [place] [address] ArrivedNOMS FNR FMComment on above:ArrivedStart: 07-10-2024 End: 85-22-1455Piijpwgb identified in Urine by CultureUrine culture (clean catch) Microbiology Routine Dysuria Expected: 07/10/2024 (Approximate), Expires: 07/10/2025[facility] Work Phone: Comment on above:Expected: 07/10/2024 (Approximate), Expires: 07/10/2025Start: 07-10-2024 End: 80-14-1823Qaauetldjy complete panel - UrineUrinalysis with reflex microscopic (clean catch) Lab Routine Dysuria Expected: 07/10/2024 (Approxima te), Expires: 07/10/2025[facility] HealthcareComment on above:Expected: 07/10/2024 (Approximate), Expires: 07/10/2025Start: 13-82-7952Phwfbsgvl vaccination Influenza Vaccine (#1)NOMS HealthcareComment on above:Postponed from 07/23/2023 (Patient Refused)Start: 04-04-2024 End: 29-36-1368Zvbaqnf encounter zihzeqjkk73/14/2024 10:30 AM EDT Office Visit [facility] [place] [address] [place] [address] Donnell Hoover MD [address] [place] [address] Time Frame: First availableGreenwood [facility] [place] Comment on above:Time Frame: First availableStart: 04-03-2024 End: 84-07-2145Glzmnka encounter gpmveidzt85/13/2024 11:20 AM EDT Office Visit [facility] FNR FM [address] [place] [phone] Bia Cao MD [address] [place] [address] N[facility] FNR FMStart: 01-20-2024 End: 52-06-3721aaoakubhgs11/29/2024 11:00 AM EST Treatment [facility] FB PT [address] [place] [phone] Jonny Salazar, PT [address] [place] [address] NOMS FB PTStart: 01-18-2024 End: 14-26-9337bqjpjrkylz17/27/2024 11:30 AM EST Treatment [facility] FB PT [address] [place] [phone] Ria Snyder, RIGHT OF WAY BUYER [address] [place] [address] NOMS FB PTStart: 01-14-2024 End: 80-17-5287bpftiunwdw57/23/2024 1:00 PM EST Treatment [facility] FB PT [address] [place] [phone] Ria Snyder, RIGHT OF [address] BUYER [address] [place] [address] NOMS FB PTStart: 01-12-2024 End: 68-35-4906weugmsrnak54/21/2024 12:30 PM EST Treatment [facility] FB PT [address] [place] [phone] Ria Snyder, RIGHT OF [address] BUYER [address] [place] [address] NOMS FB PTStart: 01-06-2024 End: 42-75-2018ouhaxwmiljDBCZ FB PTStart: 01-04-2024 End: 59-79-6852mlbkpqylkv97/13/2024 11:30 AM EST Treatment [facility] FB PT [address] [place] [phone] Ria Snyder, RIGHT OF [address] BUYER [address] [place] [address] NOMS FB PTStart: 12-31-2023 End: 18-48-4489mupeebhsmu44/09/2024 10:00 AM EST Treatment [facility] FB PT [address] [place] [phone] Ria Snyder, RIGHT OF [address] BUYER [address] [place] [address] NOMS FB PTStart: 12-30-2023 End: 82-42-5232xqgbpukbsg39/08/2024 11:30 AM EST Treatment [facility] FB PT [address] [place] [phone] Jonny Salazar, PT [address] [place] [address] NOMS FB PTStart: 12-28-2023 End: 43-87-2440zuijsesahx84/06/2024 11:30 AM EST Treatment [facility] FB PT [address] [place] [phone] Ria Snyder, RIGHT OF [address] BUYER [address] [place] [address] NOMS FB PTStart: 43-35-2228Ucgaunr Directive DiscussionAdvance Directive DiscussionKettering Healthtart: 16-58-1630Wxcemfdrrn Health ScreeningBehavioral Health Screening [facility]: 08-67-8050Ekkcz-19 Vaccine ()Covid-19 Vaccine ()[facility]: 09-57-4980OOzG,Tdap and Td Vaccines (2 - Td or Tdap)DTaP,Tdap and Td Vaccines (2 - Td or Tdap)[facility]: 66-41-6848WGM Vaccine (1 - 1-dose 75+ series)RSV Vaccine (1 - 1-dose 75+ series)[facility]: 58-77-0420XQnY/Tdap/Td Vaccines (2 - Tdap)DTaP/Tdap/Td Vaccines (2 - Tdap)[facility]: 62-53-7947NFvA,Tdap and Td Vaccines (1 - Tdap)DTaP,Tdap and Td Vaccines (1 - Tdap)[facility]: 90-92-3516Nvyan microalbumin profileDTaP,Tdap,Td Vaccine (1 - Tdap) [facility]: 90-05-2705Psfmcaksxfhumf of varicella zoster vaccine Zoster (Shingles) Vaccine (2 of 3)[facility]: 45-88-6176IVM Vaccine (1 - 1-dose 60+ series)RSV Vaccine (1 - 1-dose 60+ series)[facility]: 30-95-7251Cwavamsq Vaccine (1 of 2)Shingrix Vaccine (1 of 2) [facility]: 93-25-2765Bfdlvpw ScreeningAnxiety ScreeningK[facility]tering [facility]althtart: 02-28-3672Fjsepqfhmx ScreeningDepression ScreeningEast [facility] Start: 53-22-2192Lnekvytlr C screeningHepatitis C ScreeningEast [facility] Regional Hospital Bacteria identified in Urine by CultureUrine culture (clean catch) Microbiology Routine Urinary frequency 12/08/2024 12:28 PM [facility] Work Phone: End: 84-72-2303Kgssltk [Mass/volume] in Serum or PlasmaCalcium Lab Routine Osteoporosis, unspecified osteoporosis type, unspecified pathological fracture p resence every 3 months for 4 Occurrences starting 12/22/2024 until 12/22/2025 [facility] Work Phone: comment on above:every 3 months for 4 Occurrences starting 12/22/2024 until 12/22/2025 End: 13-19-8418Nrhrlcx [Mass/volume] in Serum or PlasmaCalcium Lab Routine Osteoporosis, unspecified osteoporosis type, unspecified pathological fracture p resence MONTHLY for 12 Occurrences starting 02/08/2025 until 02/08/2026[facility] Work Phone: comment on above:MONTHLY for 12 Occurrences starting 02/08/2025 until 02/08/2026 End: 16-44-4797AM Brain WO and W contrast IVMRI BRAIN WO/W IVCON Radiology Routine Benign neoplasm of meninges (HCC) 1 Occurrences starting 09/26/2024 until 10/26/2025[facility] Work Phone: Comment on above:1 Occurrences starting 09/26/2024 until 10/26/2025 Immunizations Immunization DateImmunizationNotesCare JedenxjzQylypbwd05-70-4468NDQ, recombinant, protein subunit RSVpreF, adjuvant reconstitu, 120mcg/0.5mL, PF (Arexvy)Santo Christianson DPM Work Phone: noSt. Luke's HospitalEaefflbvql73-69-5418AAZUQ-43, mRNA, LNP-S, PF, 100mcg/0.5mL DoseJohn Johnson MD Work Phone: pOhioHealth Arthur G.H. Bing, MD, Cancer CenterZcivmo41-33-6766Hfuidrk SARS-CoV-[address] BUYER Work Phone: [facility] CampusTxabfldans27-36-6905HWCVU-36, mRNA, LNP-S, PF, 100mcg/0.5mL DoseJohn Johnson MD Work Phone: [phone] [place], [place] [address]3-23-2021Moderna SARS-CoV-[address]ariam Snyder RIGHT OF [address] BUYER Work Phone: [facility] CampusNmofcuwrpl84-22-9029okkyotwsrjxr conjugate vaccine, 13 valentGrmariam Snyder RIGHT OF [address] BUYER Work Phone: [facility] CampusIlfoakuxna20-94-6948sfbijblhy, high dose seasonal, preservative-freeRia Snyder RIGHT OF WAY BUYER Work Phone: [facility] CampusXnngqgpssu80-14-2672Uwioubgb, quadrivalent, recombinant, injectable influenza vaccine, preservative freeJohn Johnson MD Work Phone: [phone] [place], [place] [address]Zjtavz21-15-6446eruzryjcs virus vaccine, unspecified formulationRia Snydre RIGHT OF WAY BUYER Work Phone: [facility] CampusVhnaqmvoch66-39-9807Fqhvrfzd, quadrivalent, recombinant, injectable influenza vaccine, preservative freeRia Snyder RIGHT OF WAY BUYER Work Phone: [facility] CampusJbemyuwqmp03-45-3652dcahmxjth, injectable, quadrivalent, preservative freeRia Snyder RIGHT OF WAY BUYER Work Phone: [facility] CampusFcubmapqtz77-47-1719aicpobqsp, seasonal, injectable, preservative freeRia Snyder RIGHT OF WAY BUYER Work Phone: [facility] CampusSvwkntgtpz06-79-6204yijcmnfmzixv polysaccharide vaccine, [address] BUYER Work Phone: noSt. Luke's HospitalLizifnfson07-22-4968rlskubn and diphtheria toxoids, adsorbed, preservative free, for adult use (5 Lf of tetanus toxoid and 2 Lf of diphtheria toxoid)Ria Snyder RIGHT OF WAY BUYER Work Phone: [facility] CampusRcpyjqgdki20-39-4231wnztqm vaccine, liveGretaleyda Snyder RIGHT OF WAY BUYER Work Phone: noSt. Luke's HospitalZwlmakzcoj33-10-8453ycolkv vaccine, unspecified formulationJohn Johnson MD Work Phone: pOhioHealth Arthur G.H. Bing, MD, Cancer CenterAiekyp87-36-2722eprphyrtxmey polysaccharide vaccine, 23 Belem Cao MD Work Phone: [facility] Payers DatePayer CategoryPayerPolicy ID2024MedicaidAETNA MEDICARE ADVANTAGE [id number] 2024Medicare [id number] Health Insurance 2022Medicare HMOAETNA MEDICARE Member Subscriber Plan / Payer (Effective 2021-Present) Name: Angela Ruth Relation to Subscriber: Self Name: Angela Ruth Sharon Payer ID: 1 (NAIC) Type: Not on file Address: [facility] [address] [place] [id number] [id number] [id number] [id number] 2..1.805366.3.57[id number] 2..1.539860.3.57[id number] 2..1.289081.3.57[id number] 2.0.1.359405.3.579.[id number] 2..1.621117.3.57[id number] 2.0.1.653242.3.579.2.351234-26-5385Qmkdmuv776472444 2.0.1.413490.3.579.2.4[id number] 2.840.1.024385.3.579.2.[id number] 2.840.1.868140.3.579.2.123736-99-4179Ixvcgmz09479906 2.0.1.024230.3.579.2.645334-42-0581Cctnwto83993923 2.840.1.900403.3.579.2.406108-01-9288Hxofsri75618410 2.0.1.744328.3.579.2.886240-60-4384Qcbwyke1636207 2.0.1.744947.3.579.2.929547-27-1298Akgkyuq4103695 2.0.1.351261.3.579.2.855883-59-3224Fiefrtf0143646 2..1.195442.3.579.2.505561-26-2135Wzbpspk6647281 2..1.927439.3.579.2.459649-13-4866Snctqud6480221 2.0.1.150535.3.579.2.097462-85-2274Wfxyytx6148215 2..1.472328.3.579.2.578592-97-9900Iivirna8625505 2.840.1.387388.3.579.2.234372-58-4370Giernai4076479 2.0.1.648663.3.579.2.371417-72-2149Rcuummk9416626 2.0.1.315740.3.579.2.172651-40-6546Ytqshix8808296 2.840.1.879738.3.579.2.651260-63-4289Wygrkrc6885144 2.16840.1.838654.3.579.2.572379-63-3518Johsash6076146 2.0.1.668950.3.579.2.656599-21-1929Zvnklfk804532903 2.0.1.892566.3.579.2.47819-58-2957Xzuvaru421720384 2..1.692748.3.579.2.60606-49-9536Cvgkhwb888045918 2..1.855792.3.579.2.12442-13-2584Vqxwxyf638326479 2..1.603437.3.579.2.78061-50-9798Dxpxqze099060758 2..1.216030.3.579.2.15428-98-0592Xpqaxvz606069177 2.0.1.275275.3.579.2.51858-78-3613Xxuzkit566169554 2..1.712906.3.579.2.25091-71-8703Qeyfwqb618521836 2..1.999875.3.579.2.950940-61-4893Attvchu196494496 2.0.1.632125.3.579.2.323000-84-4859Ynnelze543973724 2.840.1.470881.3.579.2.423608-21-3556Uvscarz068363198 2.840.1.953004.3.579.2.914037-26-8649Qkaznze277573066 2.16840.1.651635.3.579.2.869033-70-7755Cqrtbia087627394 2.16840.1.007949.3.579.2.169302-19-7618Xtstvoa727370738 2.16840.1.873874.3.579.2.022995-93-6629Xohxzfw748216868 2.840.1.866255.3.579.2.690474-76-0331Egysdny060814663 2.840.1.132284.3.579.2.424719-14-6505Wzgnmkj925164876 2.840.1.886363.3.579.2.847646-26-3946Lgymjer733113409 2.840.1.788629.3.579.2.035511-55-0931Nbtmjze576180451 2.840.1.424797.3.579.2.722172-19-6665Pgxkayw258298165 2.840.1.087219.3.579.2.853285-95-8671Wrqpexh331935260 2.840.1.692923.3.579.2.052207-96-6755Qmyfmim430714858 2.840.1.092654.3.579.2.863251-66-5779Igvtihn449818541 2.840.1.662865.3.579.2.429255-40-8450Cbtxuye437133297 2.840.1.166691.3.579.2.393572-17-6566Zwevfjt321083151 2.840.1.877307.3.579.2.778729-76-4483Eejjhud714519107 2.16.840.1.343479.3.579.2.385758-53-1826Ljkxrzv087603837 2.16.840.1.277993.3.579.2.283575-23-6804Akcanjj454385264 2.16.840.1.887063.3.579.2.201618-12-8943Gywblze203727076 2.16.840.1.292874.3.579.2.360255-29-4885Ekinzhn162930033 2.16.840.1.414566.3.579.2.491366-46-1886Wwavfal985407132 2.16.840.1.370053.3.579.2.1286 Social History DateTypeDetailFacilityStart: 06-04-2023 End: 79-42-2145Vhqqrhf smoking status NHISNever smoked tobaccoNONC Healthcare Start: 06-04-2023 End: 15-44-6616Tmixbts use and exposureSmokeless tobacco non-userNONC Healthcare Start: 63-03-3766Myekucr intakeCurrent drinker of alcohol (finding)[facility]OM HealthcareStart: 12-03-2020 End: 05-18-1272Psucqbe of Social functionNONC HealthcareStart: 12-03-2020 End: 43-41-4415Rmjozrd use panelNONC HealthcareStart: 47-96-9313Cghmyhf Comment caffeine: occasionalNOMS HealthcareStart: 88-61-5418Dct Assigned At BirthNot on [facility] HealthcareStart: 01-27-2018 End: 07-66-5296Eeczuio intakeCurrent non-drinker of alcohol (finding)[facility]: 17-79-0190Efvtcjtz Score (1-100), lower number is lower riskNot on [facility]: 07-10-2024 End: 41-17-3639Lhuopfrhh beverage intakeEx-drinker (finding)[facility] HealthcareDo you belong to any clubs or organizations such as synagogue groups, unions, fraternal or athletic groups, or [...] got money to buy more.Never trueNOMS HealthcareStart: 59-33-5321Wxbdnru CommentSecond hand smoke from [facility] HealthcareHistory of tobacco usePassive smokerProSheltering Arms Hospital SystemStart: 74-10-6030Mqy assigned at birthWellSpan [facility] SystemStart: 48-22-5754TyhTensqz (finding)[facility] SystemStart: 02-83-2641Ldzpdu identityIdentifies as female gender (finding)[facility]: 08-20-9535Dqpoot orientationHeterosexual (finding)[facility] Medical Equipment Procedure CodeEquipment CodeEquipment Original TextEquipment IdentifierDates Patch Dura 1x1in Drmtrx-[place] + Clgn Rgnrt Membr Strl - [id number] Start: 07-03-2021 Goals DatePatient GoalDesired Activity/StatePersonal health goalPersonal health goal Comment on above: Evaluation of progress towards goal: safe transition from hospital to home with support of her friends/neighbors Functional Status FshiNmxipnnweiXalhywHqtnxlav43-23-8098Aekvhys Health Questionnaire 2 item (PHQ- 2) [Reported][facility] Vmjhyiwavw37-18-1682Ytoij score [AUDIT-C]0 04/02/2024 11:27 PM EDT Gallo PayanNO Gsvzolmxry43-53-1589Ojr often do you have a drink containing alcohol?Never 04/02/2024 11:27 PM EDT Mychart, Generic NeverResearch Medical Center-Brookside CampusKbeljnknkm73-39-7493Jyordgxlra statusPatient does not drink 04/02/2024 11:27 PM EDT Mychart, Generic Patient does not drinkResearch Medical Center-Brookside CampusBvbcpyjyia83-50-4671Hfz often do you have 6 or more drinks on 1 occasion?Never 04/02/2024 11:27 PM EDT Mychart, Generic [facility] Clinical Notes 03-24-2024 to 09-25-2025 Note Date & MkxoShboVympefkm52-26-4176 History of Present illness Narrative* Kayla Fulton RN - 09/25/2025 3:00 PM EST Images from the original note were not included. Patient is here for Evenity injection as scheduled. Calcium reviewed with LISE mcnair. OK to proceed with Evenity as planned. Medication administered in right upper arm subcutaneous tissue without incident and patient tolerated well. Sites covered with band aids. Treatment calendar. Patient discharged in stable condition to private vehicle in care of her granddaughter. documented in this [facility]10-29-2025 Telephone encounter Note* Telephone Encounter - Bia Cao MD - 09/19/2025 2:20 PM EDT Approvals with refills [facility] CampusHvdmqzfblh98-80-1240 Miscellaneous Notes* Telephone Encounter - Bia Cao MD - 09/19/2025 2:20 PM EDT Approvals with refills documented in this encounterResearch Medical Center-Brookside CampusImtflmygav39-63-4488 History of Present illness Narrative* Shaye Palmer RN - 08/17/2025 1:00 PM EDT Patient presents for Evenity injection as scheduled. Calcium reviewed with LISE mcnair at 9.4 on 08/16/25; medication indicated Injection administered in Left upper arm SQ tissue without issue and Pt tolerates well Sites covered with band aids. Next injection scheduled at front desk receptionist Patient discharged in stable condition to private vehicle in care of her granddaughter. documented in this encounterUniversity [facility]als [facility]09-[facility]-2025 Telephone encounter Note* Telephone Encounter - Bia Cao MD - 07/25/2025 9:59 AM EDT Approvals with refills [facility] CampusXtshwkiqsj73-52-0314 Miscellaneous Notes* Telephone Encounter - Bia Cao MD - 07/25/2025 9:59 AM EDT Approvals with refills documented in this encounterResearch Medical Center-Brookside CampusHpvgiydthg69-24-9225 History of Present illness Narrative* Shaye Palmer RN - 07/20/2025 1:00 PM EDT Patient presents for Evenity injection as scheduled. Calcium reviewed with patient, WNL at 9.4, medication indicated Injection administered in Right upper arm SQ tissue without issue and Pt tolerates well Sites covered with band aids. Next injection scheduled at front desk receptionist Patient discharged in stable condition to private vehicle in care of her granddaughter. documented in this encounterUniversity [facility]als [facility]. [facility]08-[facility]-2025 History of Present illness Narrative* John Johnson MD - 07/16/2025 8:01 PM EDT Normal calcium levels documented in this encounterUniversity Hospitals [facility]. [facility]08-19-2025 History of Present illness Narrative* Bia Cao MD - 07/10/2025 1:00 PM EDTAssociated Problem(s): Stage 3b chronic kidney disease (CKD) ([facility]) Orders: CBC and differential; Future Comprehensive metabolic [...] - 07/10/2025 1:00 PM EDTAssociated Problem(s): Asthma ([facility]) stable * iBa Cao MD - 07/10/2025 1:00 PM EDTAssociated [...] levels due to family issues. 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 Her warehouse record clerk is receiving counseling, but the situation remains challenging. Social History: Diet: She consumes dairy products. Living Condition: Lives with a warehouse record clerk who recently lost a baby. Objective BP [...] Plan Stage 3b chronic kidney disease (CKD) ([facility]) Orders: CBC and differential; Future Comprehensive metabolic [...] scheduled in 4 months. documented in this encounterResearch Medical Center-Brookside [id number] Telephone encounter Note* Telephone Encounter - Torres Nina - 06/26/2025 2:21 PM EDT Angela asking if she can stop in and leave a urine spc. - she has UTI symptoms - she said Dr Cao usually allows her to just come in and leave a urine spc . Please call and let her know when to come in [phone] [facility] [id number] Miscellaneous Notes* Telephone Encounter - Torres Wood - 06/26/2025 2:21 PM EDT Angela asking if she can stop in and leave a urine spc. - she has UTI symptoms - she said Dr Cao usually allows her to just come in and leave a urine spc . Please call and let her know when to come in [phone] documented in this encounterResearch Medical Center-Brookside [id number] Evaluation + Plan note* Assessment & Plan Note - MINH Gallagher - 06/13/2025 2:22 PM EDT Associated Problem(s): Urge incontinence We will see her back in January with a KUB. She will call sooner if she has any problems. If she suspects an infection, she can contact the office so that we can have her stop at the lab for culture [facility]07-23-2025 Miscellaneous Notes* Assessment & Plan Note - MINH Gallagher - 06/13/2025 2:22 PM EDTAssociated Problem(s): Urge incontinence We will see her back in January with a KUB. She will call sooner if she has any problems. If she suspects an infection, she can contact the office so that we can have her stop at the lab for culture documented in this encounterUniversity Hospitals St. John [facility] Center07-23-2025 History of Present illness Narrative* MINH Gallagher - 06/13/2025 2:00 PM EDT Images from the original note were not included. [address] [place] [address] A [facility] [address] Patient: Angela Ruth Date of : 1945 [...] concerns. Summary of old records: Notes from ne 02/27/25: The Myrbetriq was too expensive so [...] (benign paroxysmal positional vertigo) Brain tumor (benign) ([facility]) Breast disorder 4 biopsies Bronchitis 01/01/2017 Cancer ([facility]) Basal cell Carpal tunnel syndrome Cataract [...] 07/07/2018 Performed by Alexander Leach MD at [facility] ENDOSCOPY COSMETIC SURGERY 1984 DISCECTOMY 1989 Partial L4-5 EGD 2001 EYE SURGERY 2014 FOOT SURGERY 2009 Reattachment of tendon left foot with bone graft HIP SURGERY 2003 Excision of bursa left hip HYSTERECTOMY 1983 INJECTION BLOCK EPIDURAL STEROID LUMBAR/SACRAL Left L 5,1 NR Left 12/20/2020 Performed by Shubham Clifton MD at [facility] INJECTION BLOCK NERVE MEDIAL BRANCH right C 4/5,5/6 Right 05/22/2022 Performed by hSubham Clifton MD at [facility] INJECTION BLOCK NERVE MEDIAL BRANCH right C 4/5,5/6 Right 04/17/2022 Performed by Shubham Clifton MD at [facility] CAUDAL EPIDURAL WITH CATHETER, STEROID N/A 03/07/2018 Performed by Shubham Clifton MD at [facility] LARGE JOINT BURSA: bilat hip Bilateral 12/10/2017 Performed by Shubham Clifton MD at [facility] MEDIAL BRANCH NERVE BLOCK Bilateral L 4/5, 5/1 Bilateral 06/28/2017 Performed by Shubham Clifton MD at [facility] INJECTION MEDIAL BRANCH NERVE BLOCK Right L 2/3, 3/4 Right 12/08/2019 Performed by Shubham Clifton MD at [facility] MEDIAL BRANCH NERVE BLOCK RIGHT L23 34 Right 01/19/2020 Performed by Shubham Clifton MD at [facility] INJECTION SI JOINT Bilateral 04/09/2017 Performed by Shubham Clifton MD at [facility] INJECTION SI JOINT Bilateral SI Joint Bilateral 05/31/2020 Performed by Shubham Clifton MD at [facility] INJECTION SI JOINT Left SI JOint Left 01/06/2019 Performed by Shubham Clifton MD at [facility] INJECTION SI JOINT Right SI Joint Right 06/09/2019 Performed by Shubham Clifton MD at [facility] INJECTION SPINE TRANSFORAMINAL Left L 4, 5 NR Left 09/24/2017 Performed by Shubham Clifton MD at [facility] INJECTION SPINE TRANSFORAMINAL Left L 5,1 Nroot Left 01/08/2023 Performed by Shubham Clifton MD at [facility] INJECTION SPINE TRANSFORAMINAL Right L 5,1 Nroot Right 11/27/2022 Performed by Shubham Clifton MD at [facility] STEROID EPI 1 WITH SEDATION Left 5,1 NR Left 05/08/2019 Performed by Shubham Clifton MD at [facility] KNEE ARTHROSCOPY 2010, 2013 KNEE SURGERY 2010 2013 Arthroscopy bilateral/repair meniscus right X2, left X1 LAMINECTOMY LUMBAR FORAMENOTOMY MULTI LEVEL L1-2 RIGHT/L2-3 BILATERAL/LUMBAR DRAIN INSERTION N/A 07/03/2021 Performed by Corey Chacon MD at [facility] LAPAROTOMY OOPHERECTOMY Bilateral 1984 LUMBAR DISCECTOMY LUMBAR FUSION 2010 L3-5 LUMBAR LAMINECTOMY MICRO LUMBAR DISCECTOMY L5-S1/ FORAMINOTOMY L5-S1 Left 01/14/2017 Performed by Corey Chacon MD at [facility] OOPHORECTOMY 1982 OTHER SURGICAL HISTORY Knee Arthroscopy With Medial Meniscus Repair OTHER SURGICAL HISTORY Spinal Diskectomy RADIO FREQUENCY ABLATION Left L 4/5, 5/1 Left 12/02/2018 Performed by Shubham Clifton MD at [facility] RADIO FREQUENCY ABLATION Left L 4/5, 5/ Left 07/30/2017 Performed by Shubham Clifton MD at [facility] RADIO FREQUENCY ABLATION Left SI joint Left 03/31/2019 Performed by Shubham Clifton MD at [facility] RADIO FREQUENCY ABLATION Right L2/3, 3/4 Right 03/29/2020 Performed by Shubham Clifton MD at [facility] RADIOFREQUENCY ABLATION SPINAL Left Si joint Left 05/07/2017 Performed by Shubham Clifton MD at [facility] RADIOFREQUENCY ABLATION SPINAL Right C 4/5,5/6 Right 06/26/2022 Performed by Shubham Clifton MD at [facility] RADIOFREQUENCY ABLATION SPINAL RIGHT SI JOINT Right 05/21/2017 Performed by Shubham Clifton MD at [facility] RELEASE CARPAL TUNNEL Left 11/04/2021 Performed by Corey Chacon MD at [facility] SHOULDER SURGERY 2011 Right rotator [...] mg total) by mouth in the morning. poqvkvj-zzqmblnupemox-gvhgjxcw (EXCEDRIN MIGRAINE) 250-250-65 mg per tablet Take [...] hospitalization) Allergies: Indocin [indomethacin], Lincocin [lincomycin], Lincosamides, Miumcbxp-0-wr1 antimigraine agents, Adhesive, Eggshell membrane, Influenza virus [...] caffeine as well as addressing constipation with swla-ort-okkipfa agents. If no improvement can add beta [...] culture Follow-up: Dr. Kramer in February with MINH SAN This note was created with the assistance of a speech recognition program. While intending to generate a timely document that accurately reflects the content of the visit, no guarantee can be provided that every grammatical or spelling mistake has been or will be identified or corrected. Thank you for your understanding. MINH Gallagher 06/13/25 1422 documented in this encounterUniversity Hospitals St. [facility]07-23-2025 History of Present illness Narrative* Abran Maldonado RN - 06/13/2025 12:30 PM EDT Patient [...] care of her granddaughter. documented in this encounterUniversity Hospitals St. [facility]06-25-2025 History of Present illness Narrative* Joan [...] care of her granddaughter. documented in this encounterUniversity Hospitals St. [facility]06-17-2025 Telephone encounter Note* Telephone Encounter - Katerin Alvarado MD - 05/08/2025 11:15 AM EDT prn [facility] Work Phone: [phone] 448-826306-17-2025 Miscellaneous Notes* Telephone Encounter - Katerin Alvarado MD - 05/08/2025 11:15 AM EDT prn * Telephone Encounter - Alix Alvarado - 05/08/2025 11:02 AM EDT Called pt to see if she is planning on scheduling with doctor regarding outgoing referral, pt said no, she does not want to schedule any appts. documented in this encounterResearch Medical Center-Brookside [id number] Telephone encounter Note* Telephone Encounter - Alix Alvarado - 05/08/2025 11:02 AM EDT Called pt to see if she is planning on scheduling with doctor regarding outgoing referral, pt said no, she does not want to schedule any appts. [facility] [id number] History of Present illness Narrative* John Johnson [...] (benign paroxysmal positional vertigo) Brain tumor (benign) ([facility]) Breast disorder 4 biopsies Bronchitis 01/01/2017 Cancer ([facility]) Basal cell Carpal tunnel syndrome Cataract [...] 07/07/2018 Performed by Alexander Leach MD at [facility] ENDOSCOPY COSMETIC SURGERY 1985 DISCECTOMY 1989 Partial L4-5 EGD 2001 EYE SURGERY 2014 FOOT SURGERY 2009 Reattachment of tendon left foot with bone graft HIP SURGERY 2003 Excision of bursa left hip HYSTERECTOMY 1983 INJECTION BLOCK EPIDURAL STEROID LUMBAR/SACRAL Left L 5,1 NR Left 12/20/2020 Performed by Shubham Clifton MD at [facility] INJECTION BLOCK NERVE MEDIAL BRANCH right C 4/5,5/6 Right 05/22/2022 Performed by Shubham Clifton MD at [facility] INJECTION BLOCK NERVE MEDIAL BRANCH right C 4/5,5/6 Right 04/17/2022 Performed by Shubham Clifton MD at [facility] INJECTION CAUDAL EPIDURAL WITH CATHETER, STEROID N/A 03/07/2018 Performed by Shubham Clifton MD at [facility] INJECTION LARGE JOINT BURSA: bilat hip Bilateral 12/10/2017 Performed by Shubham Clifton MD at [facility] INJECTION MEDIAL BRANCH NERVE BLOCK Bilateral L 4/5, 5/1 Bilateral 06/28/2017 Performed by Shubham Clifton MD at [facility] INJECTION MEDIAL BRANCH NERVE BLOCK Right L 2/3, 3/4 Right 12/08/2019 Performed by Shubham Clifton MD at [facility] INJECTION MEDIAL BRANCH NERVE BLOCK RIGHT L23 34 Right 01/19/2020 Performed by Shubham Clifton MD at [facility] INJECTION SI JOINT Bilateral 04/09/2017 Performed by Shubham Clifton MD at [facility] INJECTION SI JOINT Bilateral SI Joint Bilateral 05/31/2020 Performed by Shubham Clifton MD at [facility] INJECTION SI JOINT Left SI JOint Left 01/06/2019 Performed by Shubham Clifton MD at [facility] INJECTION SI JOINT Right SI Joint Right 06/09/2019 Performed by Shubham Clifton MD at [facility] INJECTION SPINE TRANSFORAMINAL Left L 4, 5 NR Left 09/24/2017 Performed by Shubham Clifton MD at [facility] INJECTION SPINE TRANSFORAMINAL Left L 5,1 Nroot Left 01/08/2023 Performed by Shubham Clifton MD at [facility] INJECTION SPINE TRANSFORAMINAL Right L 5,1 Nroot Right 11/27/2022 Performed by Shubham Clifton MD at [facility] STEROID EPI 1 WITH SEDATION Left 5,1 NR Left 05/08/2019 Performed by Shubham Clifton MD at [facility] KNEE ARTHROSCOPY 2010, 2013 KNEE SURGERY 2010 2013 Arthroscopy bilateral/repair meniscus right X2, left X1 LAMINECTOMY LUMBAR FORAMENOTOMY MULTI LEVEL L1-2 RIGHT/L2-3 BILATERAL/LUMBAR DRAIN INSERTION N/A 07/03/2021 Performed by Corey Chacon MD at [facility] LAPAROTOMY OOPHERECTOMY Bilateral 1984 LUMBAR DISCECTOMY LUMBAR FUSION 2009 L3-5 LUMBAR LAMINECTOMY MICRO LUMBAR DISCECTOMY L5-S1/ FORAMINOTOMY L5-S1 Left 01/14/2017 Performed by Corey Chacon MD at [facility] OOPHORECTOMY 1982 OTHER SURGICAL HISTORY Knee Arthroscopy With Medial Meniscus Repair OTHER SURGICAL HISTORY Spinal Diskectomy RADIO FREQUENCY ABLATION Left L 4/5, 5/1 Left 12/02/2018 Performed by Shubham Clifton MD at [facility] RADIO FREQUENCY ABLATION Left L 4/5, 5/1 Left 07/30/2017 Performed by Shubham Clifton MD at [facility] RADIO FREQUENCY ABLATION Left SI joint Left 03/31/2019 Performed by Shubham Clifton MD at [facility] RADIO FREQUENCY ABLATION Right L2/3, 3/4 Right 03/29/2020 Performed by Shubham Clifton MD at [facility] RADIOFREQUENCY ABLATION SPINAL Left Si joint Left 05/07/2017 Performed by Shubham Clifton MD at [facility] RADIOFREQUENCY ABLATION SPINAL Right C 4/5,5/6 Right 06/26/2022 Performed by Shubham Clifton MD at [facility] RADIOFREQUENCY ABLATION SPINAL RIGHT SI JOINT Right 05/21/2017 Performed by Shubham Clifton MD at [facility] RELEASE CARPAL TUNNEL Left 11/04/2021 Performed by Corey Chacon MD at [facility] SHOULDER SURGERY 2012 Right rotator cuff [...] mouth in the morning., Disp: , Rfl: pgbihxq-tojegipiytoth-odxzaxzz (EXCEDRIN MIGRAINE) 250-250-65 mg per tablet, Take [...] Hypotension fainting Lincocin [Lincomycin] Anaphylaxis Lincosamides Anaphylaxis Afyziway-8-Ch6 Antimigraine Agents History of cardiovascular and cerebrovascular [...] with doctor John Johnson MD, MPH, [facility] [address] [address] Dept: [phone] FAX: [phone] documented in this encounterUniversity Hospitals St. [facility]05-28-2025 Instructions* Patient Instructions* John Johnson MD - 04/18/2025 1:30 PM EDT December 08, 2025 DEXA documented in this encounterUniversity Hospitals St. [facility]05-28-2025 History of Present illness Narrative* Abran Maldonado RN - 04/18/2025 10:30 AM EDT Pt here for evenity injection as scheduled. Denies any issues with previous injections. Calcium 9.5. Evenity given SQ to bilat upper arms. Pt tolerated well. Treatment calendar given. Pt dc'd in stable ambulatory condition. documented in this encounterUniversity Hospitals St. [facility]05-19-2025 History of Present illness Narrative* Bia Cao MD - 04/09/2025 1:40 PM EDT Images from the original note were not included. Angela Ruth is a 79 y.o. female presents with chief complaint of Follow-up HPI: HPI History of Present Illness The patient presents for evaluation of migraines, a recent fall, carpal tunnel syndrome, and arthritis. She has not recently consulted with her county bailiff but acknowledges the need for a follow-up [...] 1952 APPENDECTOMY 1965 BREAST BIOPSY x4 - [id number] CHOLECYSTECTOMY 2001 EYE SURGERY 01/21/2023 retinal repair [facility] HEMANGIOMA EXCISION 1946 from upper back HYSTERECTOMY 1984 KNEE SURGERY Bilateral arthroscopic knee surgery x3 (Rx2, Lx1) ([id number]) LAPAROTOMY OOPHERECTOMY 1985 LUMBAR DISCECTOMY 1989 partial LUMBAR DISCECTOMY 01/14/2017 Microdiscetomy L5-S1 LUMBAR DISCECTOMY 07/03/2021 L1-2 partial discectomy, L1-2, L2-3 cleaning out of stenosis in the spinal canal [facility] LUMBAR EPIDURAL INJECTION 12/20/2020 Dr Clifton RADIOFREQUENCY ABLATION 03/29/2020 lumbar ROTATOR CUFF REPAIR Right 2012 SPINAL FUSION 2010 L3-L5 TONSILLECTOMY 195 TRIGGER FINGER RELEASE Right 1995 release of Dequervan's tendon - R wrist TRIGGER FINGER RELEASE Right 05/16/2018 FAMILY HISTORY: Family History Problem Relation Name Age of Onset Hypertension Mother Chloe Baer Cancer Mother Clhoe Baer COPD Father Dre Baer Cancer Father Dre Beardsharon Arthritis Father Dre Baer Asthma Father Dre Beardsharon Stroke Paternal Grandfather [...] Depression: Not at risk (02/12/2025) Received from [employer] PHQ-2 Total Score: 2 REVIEW OF SYMPTOMS: [...] scheduled in 3 months. documented in this [facility]05-01-2025 Telephone encounter Note* Telephone Encounter - Bia Cao MD - 03/22/2025 9:52 AM EDT [facility]ills [facility] [id number] Miscellaneous Notes* Telephone Encounter - Bia Cao MD - 03/22/2025 9:52 AM EDT Approvals with refills documented in this [facility]04-30-2025 History of Present illness Narrative* Abran Maldonado RN - 03/21/2025 10:30 AM EDT Pt here for evenity injection as scheduled. Denies any issues with previous injections. Calcium 9.6. Evenity given SQ to bilat upper arms. Pt tolerated well. Treatment calendar given. Pt dc'd in stable ambulatory condition. documented in this encounterUniversity Hospitals St. [facility]04-08-2025 Evaluation + Plan note* Assessment & Plan Note - MINH Gallagher - 02/27/2025 3:14 PM EDT Associated Problem(s): Urge incontinence We discussed cranberry/D mannose supplements, topical estrogen cream, methenamine, or a prophylactic antibiotic. [facility]04-08-2025 Miscellaneous Notes* Assessment & Plan Note - MINH Gallagher - 02/27/2025 3:14 PM EDTAssociated Problem(s): Urge incontinence We discussed cranberry/D mannose supplements, topical estrogen cream, methenamine, or a prophylactic antibiotic. documented in this encounterUniversity Hospitals St. [facility]04-08-2025 History of Present illness Narrative* MINH Gallagher - 02/27/2025 2:30 PM EDT Images from the original note were not included. [address] [facility] [id number] Patient: Angela Ruth Date of : 1945 [...] (benign paroxysmal positional vertigo) Brain tumor (benign) ([facility]) Breast disorder 4 biopsies Bronchitis 01/01/2017 Cancer [...] 07/07/2018 Performed by Alexander Leach MD at [facility] ENDOSCOPY COSMETIC SURGERY 1984 DISCECTOMY 1989 Partial L4-5 EGD 2001 EYE SURGERY 2014 FOOT SURGERY 2009 Reattachment of tendon left foot with bone graft HIP SURGERY 2003 Excision of bursa left hip HYSTERECTOMY 1983 INJECTION BLOCK EPIDURAL STEROID LUMBAR/SACRAL Left L 5,1 NR Left 12/20/2020 Performed by Shubham Clifton MD at [facility] INJECTION BLOCK NERVE MEDIAL BRANCH right C 4/5,5/6 Right 05/22/2022 Performed by Shubham Clifton MD at [facility] INJECTION BLOCK NERVE MEDIAL BRANCH right C 4/5,5/6 Right 04/17/2022 Performed by Shubham Clifton MD at [facility] INJECTION CAUDAL EPIDURAL WITH CATHETER, STEROID N/A 03/07/2018 Performed by Shubham Clifton MD at [facility] INJECTION LARGE JOINT BURSA: bilat hip Bilateral 12/10/2017 Performed by Shubham Clifton MD at [facility] INJECTION MEDIAL BRANCH NERVE BLOCK Bilateral L 4/5, 5/1 Bilateral 06/28/2017 Performed by Shubham Clifton MD at [facility] INJECTION MEDIAL BRANCH NERVE BLOCK Right L 2/3, 3/4 Right 12/08/2019 Performed by Shubham Clifton MD at [facility] INJECTION MEDIAL BRANCH NERVE BLOCK RIGHT L23 34 Right 01/19/2020 Performed by Shubham Clifton MD at [facility] INJECTION SI JOINT Bilateral 04/09/2017 Performed by Shubham Clifton MD at [facility] INJECTION SI JOINT Bilateral SI Joint Bilateral 05/31/2020 Performed by Shubham Clifton MD at [facility] INJECTION SI JOINT Left SI JOint Left 01/06/2019 Performed by Shubham Clifton MD at [facility] INJECTION SI JOINT Right SI Joint Right 06/09/2019 Performed by Shubham Clifton MD at [facility] SPINE TRANSFORAMINAL Left L 4, 5 NR Left 09/24/2017 Performed by Shubham Clifton MD at [facility] INJECTION SPINE TRANSFORAMINAL Left L 5,1 Nroot Left 01/08/2023 Performed by Shubham Clifton MD at [facility] INJECTION SPINE TRANSFORAMINAL Right L 5,1 Nroot Right 11/27/2022 Performed by Shubham Clifton MD at [facility] STEROID EPI 1 WITH SEDATION Left 5,1 NR Left 05/08/2019 Performed by Shubham Clifton MD at [facility] KNEE ARTHROSCOPY 2010, 2013 KNEE SURGERY 2010 2013 Arthroscopy bilateral/repair meniscus right X2, left X1 LAMINECTOMY LUMBAR FORAMENOTOMY MULTI LEVEL L1-2 RIGHT/L2-3 BILATERAL/LUMBAR DRAIN INSERTION N/A 07/03/2021 Performed by Corey Chacon MD at [facility] LAPAROTOMY OOPHERECTOMY Bilateral 1984 LUMBAR DISCECTOMY LUMBAR FUSION 2009 L3-5 LUMBAR LAMINECTOMY MICRO LUMBAR DISCECTOMY L5-S1/ FORAMINOTOMY L5-S1 Left 01/14/2017 Performed by Corey Chacon MD at [facility] OOPHORECTOMY 1982 OTHER SURGICAL HISTORY Knee Arthroscopy With Medial Meniscus Repair OTHER SURGICAL HISTORY Spinal Diskectomy RADIO FREQUENCY ABLATION Left L 4/5, 5/1 Left 12/02/2018 Performed by Shubham Clifton MD at [facility] RADIO FREQUENCY ABLATION Left L 4/5, 5/1 Left 07/30/2017 Performed by Shubham Clifton MD at [facility] RADIO FREQUENCY ABLATION Left SI joint Left 03/31/2019 Performed by Shubham Clifton MD at [facility] RADIO FREQUENCY ABLATION Right L2/3, 3/4 Right 03/29/2020 Performed by Shubham Clifton MD at [facility] RADIOFREQUENCY ABLATION SPINAL Left Si joint Left 05/07/2017 Performed by Shubham Clifton MD at [facility] RADIOFREQUENCY ABLATION SPINAL Right C 4/5,5/6 Right 06/26/2022 Performed by Shubham Clifton MD at [facility] RADIOFREQUENCY ABLATION SPINAL RIGHT SI JOINT Right 05/21/2017 Performed by Shubham Clifton MD at [facility] RELEASE CARPAL TUNNEL Left 11/04/2021 Performed by Corey Chacon MD at [facility] SHOULDER SURGERY 2012 Right rotator cuff [...] mg total) by mouth in the morning. fimzsxx-ywnjxsuwbbgrf-hsjzuxdh (EXCEDRIN MIGRAINE) 250-250-65 mg per tablet Take [...] hospitalization) Allergies: Indocin [indomethacin], Lincocin [lincomycin], Lincosamides, Ualuomna-3-fx8 antimigraine agents, Adhesive, Eggshell membrane, Influenza virus [...] caffeine as well as addressing constipation with ynyn-rbl-ckyleed agents. If no improvement can add beta [...] Kramer or me in 3-4 months in [place] MINH GALLAGHER This note was created with the assistance of a speech recognition program. While intending to generate a timely document that accurately reflects the content of the visit, no guarantee can be provided that every grammatical or spelling mistake has been or will be identified or corrected. Thank you for your understanding. MINH Gallagher 02/27/25 1515 documented in this encounterMercy Health Urbana HospitalSouth Valley CrossFit Formerly Oak[facility] Heritage [id number] Instructions* Patient Instructions* MINH Gallagher - 02/27/2025 [...] what you want todo. documented in this encounterUniversity Hospitals St. [facility] Center03-31-2025 Telephone encounter Note* Telephone Encounter - Bia Cao MD - 02/19/2025 12:52 PM EDT [facility] refills [facility] [id number] Miscellaneous Notes* Telephone Encounter - Bia Cao MD - 02/19/2025 12:52 PM EDT Approvals with refills documented in this encounterResearch Medical Center-Brookside [id number] History of Present illness Narrative* Emerita Borden RN - 02/16/2025 1:00 PM EDT Patient here for Evenity injection Vitals WNL Injection given sub q in the Right arm Patient tolerated well Calendar given for next injection documented in this encounterUniversity Hospitals St. [facility]03-24-2025 Telephone encounter Note* Telephone Encounter - Maryan Aponte - 02/12/2025 4:08 PM EDT Nancy- pharmacy from [facility] in [place] calling to let you know that they received rx for remeron and they cannot fill due to drug interaction with amitriptyline prescribed by Dr. Dorsey. It is a category X- cannot fill. Increased risk of serotonin syndrome. She has been on amitriptyline for years. Please advise jil. Thank you. [facility] [id number] Miscellaneous Notes* Telephone Encounter - Maryan Aponte - 02/12/2025 4:08 PM EDT Nancy- pharmacy from [facility] in [place] calling to let you know that they received rx for remeron and they cannot fill due to drug interaction with amitriptyline prescribed by Dr. Dorsey. It is a category X- cannot fill. Increased risk of serotonin syndrome. She has been on amitriptyline for years. Please advise jil. Thank you. documented in this encounterNOMS [id number] History of Present illness Narrative* CHACE Rayo - 02/12/2025 8:00 AM EDT Images from [...] mg TID Inderal (tremors) Midrin Migraine cocktails Mangham PRN Occipital nerve blocks (last 03/2021) Propranolol [...] vs meningioma). He referred her to the [facility] for evaluation for possible gamma knife [...] (benign paroxysmal positional vertigo) Brain tumor (benign) ([facility]) Breast disorder 4 biopsies Bronchitis 01/01/2017 Cancer ([facility]) Basal cell Carpal tunnel syndrome Cataract Chronic [...] 07/07/2018 Performed by Alexander Leach MD at [facility] ENDOSCOPY COSMETIC SURGERY 1984 DISCECTOMY 1989 Partial L4-5 EGD 2001 EYE SURGERY 2014 FOOT SURGERY 2009 Reattachment of tendon left foot with bone graft HIP SURGERY 2003 Excision of bursa left hip HYSTERECTOMY 1983 INJECTION BLOCK EPIDURAL STEROID LUMBAR/SACRAL Left L 5,1 NR Left 12/20/2020 Performed by Shubham Clifton MD at [facility] INJECTION BLOCK NERVE MEDIAL BRANCH right C 4/5,5/6 Right 05/22/2022 Performed by Shubham Clifton MD at [facility] INJECTION BLOCK NERVE MEDIAL BRANCH right C 4/5,5/6 Right 04/17/2022 Performed by Shubham Clifton MD at [facility] INJECTION CAUDAL EPIDURAL WITH CATHETER, STEROID N/A 03/07/2018 Performed by Shubham Clifton MD at [facility] INJECTION LARGE JOINT BURSA: bilat hip Bilateral 12/10/2017 Performed by Shubham Clifton MD at [facility] INJECTION MEDIAL BRANCH NERVE BLOCK Bilateral L 4/5, 5/1 Bilateral 06/28/2017 Performed by Shubham Clifton MD at [facility] INJECTION MEDIAL BRANCH NERVE BLOCK Right L 2/3, 3/4 Right 12/08/2019 Performed by Shubham Clifton MD at [facility] INJECTION MEDIAL BRANCH NERVE BLOCK RIGHT L23 34 Right 01/19/2020 Performed by Shubham Clifton MD at [facility] SI JOINT Bilateral 04/09/2017 Performed by Shubham Clifton MD at [facility] SI JOINT Bilateral SI Joint Bilateral 05/31/2020 Performed by Shubham Clifton MD at [facility] SI JOINT Left SI JOint Left 01/06/2019 Performed by Shubham Clifton MD at [facility] SI JOINT Right SI Joint Right 06/09/2019 Performed by Shubham Clifton MD at [facility] SPINE TRANSFORAMINAL Left L 4, 5 NR Left 09/24/2017 Performed by Shubham Clifton MD at [facility] INJECTION SPINE TRANSFORAMINAL Left L 5,1 Nroot Left 01/08/2023 Performed by Shubham Clifton MD at [facility] INJECTION SPINE TRANSFORAMINAL Right L 5,1 Nroot Right 11/27/2022 Performed by Shubham Clifton MD at [facility] INJECTION STEROID EPI 1 WITH SEDATION Left 5,1 NR Left 05/08/2019 Performed by Shubham Clifton MD at [facility] KNEE ARTHROSCOPY 2010, 2013 KNEE SURGERY 2010 2013 Arthroscopy bilateral/repair meniscus right X2, left X1 LAMINECTOMY LUMBAR FORAMENOTOMY MULTI LEVEL L1-2 RIGHT/L2-3 BILATERAL/LUMBAR DRAIN INSERTION N/A 07/03/2021 Performed by Corey Chacon MD at [facility] LAPAROTOMY OOPHERECTOMY Bilateral 1984 LUMBAR DISCECTOMY LUMBAR FUSION 2009 L3-5 LUMBAR LAMINECTOMY MICRO LUMBAR DISCECTOMY L5-S1/ FORAMINOTOMY L5-S1 Left 01/14/2017 Performed by Corey Chacon MD at [facility] OOPHORECTOMY 1982 OTHER SURGICAL HISTORY Knee Arthroscopy With Medial Meniscus Repair OTHER SURGICAL HISTORY Spinal Diskectomy RADIO FREQUENCY ABLATION Left L 4/5, 5/1 Left 12/02/2018 Performed by Shubham Clifton MD at [facility] RADIO FREQUENCY ABLATION Left L 4/5, 5/1 Left 07/30/2017 Performed by Shubham Clifton MD at [facility] RADIO FREQUENCY ABLATION Left SI joint Left 03/31/2019 Performed by Shubham Clifton MD at [facility] RADIO FREQUENCY ABLATION Right L2/3, 3/4 Right 03/29/2020 Performed by Shubham Clifton MD at [facility] RADIOFREQUENCY ABLATION SPINAL Left Si joint Left 05/07/2017 Performed by Shubham Clifton MD at [facility] RADIOFREQUENCY ABLATION SPINAL Right C 4/5,5/6 Right 06/26/2022 Performed by Shubham Clifton MD at [facility] RADIOFREQUENCY ABLATION SPINAL RIGHT SI JOINT Right 05/21/2017 Performed by Shubham Clifton MD at [facility] RELEASE CARPAL TUNNEL Left 11/04/2021 Performed by Corey Chacon MD at [facility] SHOULDER SURGERY 2011 Right rotator [...] Resource Strain: Low Risk (04/02/2024) Received from [facility] Overall Financial Resource Strain (CARDIA) Difficulty of Paying Living Expenses: Not very hard Food Insecurity: No Food Insecurity (02/12/2025) Hunger Screening Food Insecurity - Worry: Never True Food Insecurity - Inability: Never True Transportation Needs: Unknown (04/02/2024) Received from [facility] PRAPARE - Transportation Lack of Transportation (Medical): Not on file Lack of Transportation (Non-Medical): No Physical Activity: Insufficiently Active (04/02/2024) Received from [facility] Exercise Vital Sign Days of Exercise per Week: 3 days Minutes of Exercise per Session: 10 min Stress: Stress Concern Present (04/02/2024) Received from [facility] [employer] [place] [employer] - Occupational Stress Questionnaire Feeling of Stress : Rather much Social Connections: Moderately Integrated (04/02/2024) Received from [facility] Social Connection and Isolation Panel [NHANES] Frequency of Communication with Friends and Family: More than three times a week Frequency of Social Gatherings with Friends and Family: More than three times a week Attends Restoration Services: More than 4 times per year Active Member of Clubs or Organizations: Yes Attends Club or Organization Meetings: More than 4 times per year Marital Status: Interpersonal Safety: Not on file Housing Instability: High Risk (04/02/2024) Received from [facility] Housing Stability Vital Sign Unable to Pay [...] mg total) by mouth in the morning. ryyefkm-ncdzpwkumrncy-ailzcqrm (EXCEDRIN MIGRAINE) 250-250-65 mg per tablet Take [...] neuroma vs meningioma). [facility] knife [...] and communicating with other health child care specialist (not separately reported) Documenting clinical information in the electronic or other health record Independently interpreting results (not separately reported) and communicating results to the patient/family/caregiver Care coordination (not separately reported) - Yoanna Dorsey DNP, APRN-CNP 02/12/25 8:31 AM CHACE Rayo 02/12/25 0831 documented in this encounterCentral Vermont Medical CenterYouOS [id number] Instructions* Patient Instructions* CHACE Rayo - 02/12/2025 [...] needed (VIDYO is fine) documented in this encounterUniversity Hospitals St. [facility]03-21-2025 Miscellaneous Notes* Telephone Encounter - Blanche Aviles CMA - 02/09/2025 10:11 AM EDT ----- Message from HAVEN Osullivan sent at 02/09/2025 8:21 AM EDT ----- Regarding: RE: re schedule appt Really any day is fine to reschedule except for Wednesday. ----- Message ----- From: Blanche Aviles CMA Sent: 02/09/2025 7:43 AM EDT To: [facility] Subject: re schedule appt Pt called and said that she needs to reschedule her appt for today and when someone calls she can explain when she needs it rescheduled for. Pt left a voicemail yesterday after hours. I can call and reschedule her if you let me know what's available. documented in this encounterUniversity Hospitals St. John [facility] Center03-21-2025 Telephone encounter Note* Telephone Encounter - Blanche Aviles CMA - 02/09/2025 10:11 AM EDT ----- Message from HAVEN Osullivan sent at 02/09/2025 8:21 AM EDT ----- Regarding: RE: re schedule appt Really any day is fine to reschedule except for Wednesday. ----- Message ----- From: Blanche Aviels CMA Sent: 02/09/2025 7:43 AM EDT To: [facility] Subject: re schedule appt Pt called and said that she needs to reschedule her appt for today and when someone calls she can explain when she needs it rescheduled for. Pt left a voicemail yesterday after hours. I can call and reschedule her if you let me know what's available. [facility]03-04-2025 History of Present illness Narrative* Bia [...] 1953 APPENDECTOMY 1965 BREAST BIOPSY x4 - [id number] CHOLECYSTECTOMY 2002 EYE SURGERY 01/21/2023 retinal repair [facility] HEMANGIOMA EXCISION 1946 from upper back HYSTERECTOMY 1984 KNEE SURGERY Bilateral arthroscopic knee surgery x3 (Rx2, Lx1) ([id number]) LAPAROTOMY OOPHERECTOMY 1984 LUMBAR DISCECTOMY 1989 partial LUMBAR DISCECTOMY 01/14/2017 Microdiscetomy L5-S1 LUMBAR DISCECTOMY 07/03/2021 L1-2 partial discectomy, L1-2, L2-3 cleaning out of stenosis in the spinal canal [facility] LUMBAR EPIDURAL INJECTION 12/20/2020 Dr Clifton [...] Depression - At risk (07/13/2024) Received from [facility] PHQ-2 Total Score: 3 REVIEW OF SYMPTOMS: [...] catch) Assessment & Plan documented in this encounterResearch Medical Center-Brookside [id number] History of Present illness Narrative* Bia Cao [...] 1953 APPENDECTOMY 1965 BREAST BIOPSY x4 - [id number] CHOLECYSTECTOMY 2002 EYE SURGERY 01/21/2023 retinal repair [facility] HEMANGIOMA EXCISION 1946 from upper back HYSTERECTOMY 1984 KNEE SURGERY Bilateral arthroscopic knee surgery x3 (Rx2, Lx1) ([id number]) LAPAROTOMY OOPHERECTOMY 1985 LUMBAR DISCECTOMY 1989 partial LUMBAR DISCECTOMY 01/14/2017 Microdiscetomy L5-S1 LUMBAR DISCECTOMY 07/03/2021 L1-2 partial discectomy, L1-2, L2-3 cleaning out of stenosis in the spinal canal [facility] LUMBAR EPIDURAL INJECTION 12/20/2020 Dr Clifton [...] Depression - At risk (07/13/2024) Received from [facility] PHQ-2 Total Score: 3 REVIEW OF SYMPTOMS: [...] up in 1 month. documented in this encounterResearch Medical Center-Brookside [id number] History of Present illness Narrative* Emerita Borden RN - 01/11/2025 3:00 PM EST Patient does not have a current calcium completed Patient will have calcium done and will call to re-schedule documented in this encounterUniversity Hospitals St. John [facility] Center02-18-2025 History of Present illness Narrative* Katerin Alvarado MD - 01/09/2025 1:40 PM EST Images from the original note were not included. Subjective Patient ID: Angela Ruth is a 79 y.o. female who presents for Hoarseness Pt reports a many year h/o trouble with her voice. 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 [...] Jluis Baer Early natural Mother's Sister Lorna Bridgetteayush Mental illness Neg Hx Drug abuse Neg Hx Active Ambulatory Problems Diagnosis Date Noted Trochanteric bursitis of both hips 11/03/2017 Spinal stenosis of lumbar region 08/14/2011 Primary insomnia 06/04/2023 Primary osteoarthritis of right knee 09/17/2021 Recurrent falls 11/01/2017 Other specified depressive episodes (CMS/[facility]) 02/12/2017 Nocturnal leg cramps 06/04/2023 Mixed stress and urge urinary incontinence 10/29/2020 Major depressive disorder, single episode, in full remission (CMS/[facility]) 10/24/2019 Hyperlipidemia (CMS/[facility]) 11/08/2015 History of lumbar fusion 12/11/2015 History of depression 2018 Gastroesophageal reflux disease without esophagitis 09/15/2021 Herniation of lumbar intervertebral disc with radiculopathy 01/07/2017 Essential tremor 12/12/2018 Essential hypertension (CMS/HCC) 03/13/2013 Degeneration of lumbosacral intervertebral disc 08/14/2016 Chronic idiopathic constipation 07/10/2019 Bilateral occipital neuralgia 03/02/2019 Asthma (CMS/[facility]) 03/26/2016 Age-related osteoporosis without current pathological fracture (CMS/HCC) 06/04/2023 Acquired hypothyroidism (CMS/HCC) 09/29/2019 1st degree AV block 06/10/2021 Bilateral nephrolithiasis 03/02/2023 Stage 3b chronic kidney disease (CKD) (CMS/HCC) 06/04/2023 History of falling 11/04/2023 Lung nodule [...] 1953 APPENDECTOMY 1965 BREAST BIOPSY x4 - [phone] CHOLECYSTECTOMY 2002 EYE SURGERY 01/21/2023 retinal repair [facility] HEMANGIOMA EXCISION 1946 from upper back HYSTERECTOMY 1984 KNEE SURGERY Bilateral arthroscopic knee surgery x3 (Rx2, Lx1) ([id number]) LAPAROTOMY OOPHERECTOMY 1984 LUMBAR DISCECTOMY 1989 partial LUMBAR DISCECTOMY 01/14/2017 Microdiscetomy L5-S1 LUMBAR DISCECTOMY 07/03/2021 L1-2 partial discectomy, L1-2, L2-3 cleaning out of stenosis in the spinal canal [facility] LUMBAR EPIDURAL INJECTION 12/20/2020 Dr Clifton RADIOFREQUENCY ABLATION 03/29/2020 lumbar ROTATOR CUFF REPAIR Right 2012 SPINAL FUSION 2010 L3-L5 TONSILLECTOMY 195 TRIGGER FINGER RELEASE Right 1995 release of Dequervan's tendon - R wrist TRIGGER FINGER RELEASE Right 05/16/2018 Allergies Allergen Reactions Indomethacin Unknown fainting Lincomycin Anaphylaxis and Rash Other Swelling Sulfa Antibiotics Hives Egg-Derived Products Swelling and Unknown Says about 1963? and only one arm [...] to visit. Objective Last Recorded Vitals Vitals: 02/18/25 1353 BP: 108/62 Pulse: 87 ENT Physical [...] will refer pt to [facility] for tx. Consider laryngology referral for TVF augmentation if no help documented in this [facility]02-10-2025 History of Present illness Narrative* Faiza Evans MA - 01/01/2025 2:30 PM EST Patient here for UA Dip. Dip added to chart and sent for culture documented in this [facility]02-10-2025 Telephone encounter Note* Telephone Encounter - [...] in the office during the nurse visit. [facility] [id number] Miscellaneous Notes* Telephone Encounter - Tae Hardy [...] let her know :) documented in this encounterResearch Medical Center-Brookside [id number] Telephone encounter Note* Telephone Encounter - Tamela [...] her back and let her know :) [facility] [id number] History of Present illness Narrative* Alyce Marrero, MA - 12/26/2024 9:20 AM EST Images [...] Flowsheet Row Office Visit from 12/26/2024 in [facility] with Bia Cao MD Hospital Information ED, Hospital or Residential Facility Discharge? ED Patient has been contacted within 1 week of being seen in the ED Yes Diagnosis Fall Discharge Date 12/23/24 Discharged To: Home Setting Discharge Hospital [facility] Engagement Call Start Time 925 [...] 1953 APPENDECTOMY 1965 BREAST BIOPSY x4 - [phone] CHOLECYSTECTOMY 2002 EYE SURGERY 01/21/2023 retinal repair [facility] HEMANGIOMA EXCISION 1946 from upper back HYSTERECTOMY 1984 KNEE SURGERY Bilateral arthroscopic knee surgery x3 (Rx2, Lx1) ([id number]) LAPAROTOMY OOPHERECTOMY 1985 LUMBAR DISCECTOMY 1989 partial LUMBAR DISCECTOMY 01/14/2017 Microdiscetomy L5-S1 LUMBAR DISCECTOMY 07/03/2021 L1-2 partial discectomy, L1-2, L2-3 cleaning out of stenosis in the spinal canal [facility] LUMBAR EPIDURAL INJECTION 12/20/2020 Dr Clifton [...] Depression - At risk (07/13/2024) Received from [employer] [facility] PHQ-2 Total Score: 3 REVIEW OF SYMPTOMS: [...] for Medication change (Remeron) documented in this encounterResearch Medical Center-Brookside [id number] Telephone encounter Note* Telephone Encounter - Flora Garcia - 12/25/2024 11:54 AM EST Sorry I forgot to add I scheduled her an appt. [facility] [id number] Miscellaneous Notes* Telephone Encounter - Flroa Garcia - 12/25/2024 11:54 AM EST Sorry I forgot to add I scheduled her an appt. * Telephone Encounter - Bia Cao MD - 12/25/2024 11:48 AM EST Please call to check on her * Telephone Encounter - Flora Garcia - 12/25/2024 11:35 AM EST This is Angela Faraz. My phone number is [phone] for I am calling to let Dr Sutherland know that I fell on Wednesday night and was seen in, ER. Thank you very much, bye. documented in this encounterResearch Medical Center-Brookside [id number] Telephone encounter Note* Telephone Encounter - Bia Cao MD - 12/25/2024 11:48 AM EST Please call to check on her [facility] [id number] Telephone encounter Note* Telephone Encounter - Flora Garcia - 12/25/2024 11:35 AM EST This is Angela Ruth. My phone number is [phone] for I am calling to let Dr Sutherland know that I fell on Wednesday night and was seen in, ER. Thank you very much, bye. [facility] [id number] History of Present illness Narrative* Maria C Kramer MD - 12/19/2024 12:45 PM EST Images from the original note were not included. [address] [place] [id number] Patient: Angela Ruth Date of : 1945 [...] (benign paroxysmal positional vertigo) Brain tumor (benign) ([facility]) Breast disorder 4 biopsies Bronchitis 01/01/2017 Cancer ([facility]) Basal cell Carpal tunnel syndrome Cataract Chronic [...] 07/07/2018 Performed by Alexander Leach MD at [facility] ENDOSCOPY COSMETIC SURGERY 1984 DISCECTOMY 1989 Partial L4-5 EGD 2001 EYE SURGERY 2014 FOOT SURGERY 2009 Reattachment of tendon left foot with bone graft HIP SURGERY 2003 Excision of bursa left hip HYSTERECTOMY 1983 INJECTION BLOCK EPIDURAL STEROID LUMBAR/SACRAL Left L 5,1 NR Left 12/20/2020 Performed by Shubham Clifton MD at [facility] BLOCK NERVE MEDIAL BRANCH right C 4/5,5/6 Right 05/22/2022 Performed by Shubham Clifton MD at [facility] IN[facility] BLOCK NERVE MEDIAL BRANCH right C 4/5,5/6 Right 04/17/2022 Performed by Shubham Clifton MD at [facility] INJECTION CAUDAL EPIDURAL WITH CATHETER, STEROID N/A 03/07/2018 Performed by Shubham Clifton MD at [facility] LARGE JOINT BURSA: bilat hip Bilateral 12/10/2017 Performed by Shubham Clifton MD at [facility] IN[facility] MEDIAL BRANCH NERVE BLOCK Bilateral L 4/5, 5/1 Bilateral 06/28/2017 Performed by Shubham Clifton MD at [facility] IN[facility]CTION MEDIAL BRANCH NERVE BLOCK Right L 2/3, 3/4 Right 12/08/2019 Performed by Shubham Clifton MD at [facility] MEDIAL BRANCH NERVE BLOCK RIGHT L23 34 Right 01/19/2020 Performed by Shubham Clifton MD at [facility] SI JOINT Bilateral 04/09/2017 Performed by Shubham Clifton MD at [facility] SI JOINT Bilateral SI Joint Bilateral 05/31/2020 Performed by Shubham Clifton MD at [facility] SI JOINT Left SI JOint Left 01/06/2019 Performed by Shubham Clifton MD at [facility] SI JOINT Right SI Joint Right 06/09/2019 Performed by Shubham Clifton MD at [facility] SPINE TRANSFORAMINAL Left L 4, 5 NR Left 09/24/2017 Performed by Shubham Clifton MD at [facility] SPINE TRANSFORAMINAL Left L 5,1 Nroot Left 01/08/2023 Performed by Shubham Clifton MD at [facility] INJECTION SPINE TRANSFORAMINAL Right L 5,1 Nroot Right 11/27/2022 Performed by Shubham Clifton MD at [facility] INJECTION STEROID EPI 1 WITH SEDATION Left 5,1 NR Left 05/08/2019 Performed by Shubham Clifton MD at [facility] KNEE ARTHROSCOPY 2010, 2013 KNEE SURGERY 2010 2013 Arthroscopy bilateral/repair meniscus right X2, left X1 LAMINECTOMY LUMBAR FORAMENOTOMY MULTI LEVEL L1-2 RIGHT/L2-3 BILATERAL/LUMBAR DRAIN INSERTION N/A 07/03/2021 Performed by Corey Chacon MD at [facility] LAPAROTOMY OOPHERECTOMY Bilateral 1984 LUMBAR DISCECTOMY LUMBAR FUSION 2009 L3-5 LUMBAR LAMINECTOMY MICRO LUMBAR DISCECTOMY L5-S1/ FORAMINOTOMY L5-S1 Left 01/14/2017 Performed by Corey Chacon MD at [facility] OOPHORECTOMY 1982 OTHER SURGICAL HISTORY Knee Arthroscopy With Medial Meniscus Repair OTHER SURGICAL HISTORY Spinal Diskectomy RADIO FREQUENCY ABLATION Left L 4/5, 5/1 Left 12/02/2018 Performed by Shubham Clifton MD at [facility] RADIO FREQUENCY ABLATION Left L 4/5, 5/1 Left 07/30/2017 Performed by Shubham Clifton MD at [facility] RADIO FREQUENCY ABLATION Left SI joint Left 03/31/2019 Performed by Shubham Clifton MD at [facility] RADIO FREQUENCY ABLATION Right L2/3, 3/4 Right 03/29/2020 Performed by hSubham Clifton MD at [facility] RADIOFREQUENCY ABLATION SPINAL Left Si joint Left 05/07/2017 Performed by Shubham Clifton MD at [facility] RADIOFREQUENCY ABLATION SPINAL Right C 4/5,5/6 Right 06/26/2022 Performed by Shubham Clifton MD at [facility] RADIOFREQUENCY ABLATION SPINAL RIGHT SI JOINT Right 05/21/2017 Performed by Shubham Clifton MD at [facility] RELEASE CARPAL TUNNEL Left 11/04/2021 Performed by Corey Chacon MD at [facility] SHOULDER SURGERY 2011 Right rotator [...] mg total) by mouth in the morning. hshqjia-amkwnacvhpdsy-semayere (EXCEDRIN MIGRAINE) 250-250-65 mg per tablet Take [...] caffeine as well as addressing constipation with qxrl-jpm-uoprtmp agents. If no improvement can add beta [...] you for your understanding. documented in this encounterUniversity Hospitals St. John Medical Center01-21-2025 Telephone encounter Note* Telephone Encounter - Bia Cao MD - 12/12/2024 3:29 PM EST Approvals with refills [facility] [id number] Miscellaneous Notes* Telephone Encounter - Bia Cao MD - 12/12/2024 3:29 PM EST Approvals with refills documented in this encounterResearch Medical Center-Brookside [id number] History of Present illness Narrative* Bia Cao [...] List Items Addressed This Visit Essential hypertension ([facility]) Overview Managed by dr cifuentes Age-related osteoporosis without current pathological fracture ([facility]) Other Visit Diagnoses Urinary frequency - Primary [...] the skin lesions today. documented in this encounterResearch Medical Center-Brookside [id number] History of Present illness Narrative* John Johnson [...] (benign paroxysmal positional vertigo) Brain tumor (benign) ([facility]) Breast disorder 4 biopsies Bronchitis 01/01/2017 Cancer [...] History: Procedure Laterality Date ADENOIDECTOMY 1952 APPENDECTOMY 1964 ARM SURGERY 2018. BACK SURGERY Upper Back Surgery BREAST BIOPSY 1999 BREAST SURGERY 1981 2002 Biopsy four times CHOLECYSTECTOMY 2001 COLONOSCOPY w/ bx N/A 07/07/2018 Performed by Alexander Leach MD at [facility] ENDOSCOPY COSMETIC SURGERY 1985 DISCECTOMY 1989 Partial L4-5 EGD 2001 EYE SURGERY 2014 FOOT SURGERY 2009 Reattachment of tendon left foot with bone graft HIP SURGERY 2003 Excision of bursa left hip HYSTERECTOMY 1984 INJECTION BLOCK EPIDURAL STEROID LUMBAR/SACRAL Left L 5,1 NR Left 12/20/2020 Performed by Shubham Clifton MD at [facility] IN[facility] BLOCK NERVE MEDIAL BRANCH right C 4/5,5/6 Right 05/22/2022 Performed by Shubham Clifton MD at [facility] IN[facility] BLOCK NERVE MEDIAL BRANCH right C 4/5,5/6 Right 04/17/2022 Performed by Shubham Clifton MD at [facility] IN[facility] CAUDAL EPIDURAL WITH CATHETER, STEROID N/A 03/07/2018 Performed by Shubham Clifton MD at [facility] LARGE JOINT BURSA: bilat hip Bilateral 12/10/2017 Performed by Shubham Clifton MD at [facility] INJECTION MEDIAL BRANCH NERVE BLOCK Bilateral L 4/5, 5/1 Bilateral 06/28/2017 Performed by Shubham Clifton MD at [facility] INJECTION MEDIAL BRANCH NERVE BLOCK Right L 2/3, 3/4 Right 12/08/2019 Performed by Shubham Clifton MD at [facility] MEDIAL BRANCH NERVE BLOCK RIGHT L23 34 Right 01/19/2020 Performed by Shubham Clifton MD at [facility] SI JOINT Bilateral 04/09/2017 Performed by Shubham Clifton MD at [facility] INJECTION SI JOINT Bilateral SI Joint Bilateral 05/31/2020 Performed by Shubham Clifton MD at [facility] INJECTION SI JOINT Left SI JOint Left 01/06/2019 Performed by Shubham Clifton MD at [facility] INJECTION SI JOINT Right SI Joint Right 06/09/2019 Performed by Shubham Clifton MD at [facility] INJECTION SPINE TRANSFORAMINAL Left L 4, 5 NR Left 09/24/2017 Performed by Shubham Clifton MD at [facility] INJECTION SPINE TRANSFORAMINAL Left L 5,1 Nroot Left 01/08/2023 Performed by Shubham Clifton MD at [facility] SPINE TRANSFORAMINAL Right L 5,1 Nroot Right 11/27/2022 Performed by Shubham Clifton MD at [facility] STEROID EPI 1 WITH SEDATION Left 5,1 NR Left 05/08/2019 Performed by Shubham Clifton MD at [facility] KNEE ARTHROSCOPY 2010, 2013 KNEE SURGERY 2010 2013 Arthroscopy bilateral/repair meniscus right X2, left X1 LAMINECTOMY LUMBAR FORAMENOTOMY MULTI LEVEL L1-2 RIGHT/L2-3 BILATERAL/LUMBAR DRAIN INSERTION N/A 07/03/2021 Performed by Corey Chacon MD at [facility] LAPAROTOMY OOPHERECTOMY Bilateral 1984 LUMBAR DISCECTOMY LUMBAR FUSION 2010 L3-5 LUMBAR LAMINECTOMY MICRO LUMBAR DISCECTOMY L5-S1/ FORAMINOTOMY L5-S1 Left 01/14/2017 Performed by Corey Chacon MD at [facility] OOPHORECTOMY 1982 OTHER SURGICAL HISTORY Knee Arthroscopy With Medial Meniscus Repair OTHER SURGICAL HISTORY Spinal Diskectomy RADIO FREQUENCY ABLATION Left L 4/5, 5/1 Left 12/02/2018 Performed by Shubham Clifton MD at [facility] RADIO FREQUENCY ABLATION Left L 4/5, 5/1 Left 07/30/2017 Performed by Shbuham Clifton MD at [facility] RADIO FREQUENCY ABLATION Left SI joint Left 03/31/2019 Performed by [facility] HOSPITAL RADIO FREQUENCY ABLATION Right L2/3, 3/4 Right 03/29/2020 Performed by Shubham Clifton MD at [facility] RADIOFREQUENCY ABLATION SPINAL Left Si joint Left 05/07/2017 Performed by Shubham Clifton MD at [facility] RADIOFREQUENCY ABLATION SPINAL Right C 4/5,5/6 Right 06/26/2022 Performed by Shubham Clifton MD at [facility] RADIOFREQUENCY ABLATION SPINAL RIGHT SI JOINT Right 05/21/2017 Performed by Shubham Clifton MD at [facility] RELEASE CARPAL TUNNEL Left 11/04/2021 Performed by Corey Chacon MD at [facility] SHOULDER SURGERY 2011 Right rotator [...] mouth in the morning., Disp: , Rfl: odxcudd-uvywknmjrgqzb-txlatibl (EXCEDRIN MIGRAINE) 250-250-65 mg per tablet, Take [...] with doctor John Johnson MD, MPH, [facility]OLOG[facility] [address] [address] Dept: [phone] FAX: [phone] documented in [address] [facility] Telephone encounter Note* Telephone Encounter - Bia Cao MD - 11/29/2024 3:27 PM EST Approvals with refills [facility] [id number] Miscellaneous Notes* Telephone Encounter - Bia Cao MD - 11/29/2024 3:27 PM EST Approvals with refills documented in this [facility]12-16-2024 Telephone encounter Note* Telephone Encounter - Bia Cao MD - 11/06/2024 2:55 PM EST Approvals with refills [facility] [id number] Miscellaneous Notes* Telephone Encounter - Bia Cao MD - 11/06/2024 2:55 PM EST Approvals with refills documented in this [facility]12-09-2024 History of Present illness Narrative* Santo Christianson, LEONCIO - 10/30/2024 1:45 PM EST Images from [...] (four) hours., Disp: 18 g, Rfl: 11 olcrzixvlo-ynmqqetejcmlx-gwpwzchs 50-325-40 MG tablet, Take 1 tablet by [...] 1952 APPENDECTOMY 1965 BREAST BIOPSY x4 - [id number] CHOLECYSTECTOMY 2002 EYE SURGERY 01/21/2023 retinal repair [facility] HEMANGIOMA EXCISION 1946 from upper back HYSTERECTOMY 1984 KNEE SURGERY Bilateral arthroscopic knee surgery x3 (Rx2, Lx1) ([id number]) LAPAROTOMY OOPHERECTOMY 1985 LUMBAR DISCECTOMY 1989 partial LUMBAR DISCECTOMY 01/14/2017 Microdiscetomy L5-S1 LUMBAR DISCECTOMY 07/03/2021 L1-2 partial discectomy, L1-2, L2-3 cleaning out of stenosis in the spinal canal [facility] LUMBAR EPIDURAL INJECTION 12/20/2020 Dr Clifton [...] understanding. Santo Christianson DPM documented in this [facility]12-09-2024 Instructions* Patient Instructions* Santo Christianson DPM - 10/30/2024 1:45 PM EST As noted documented in this [facility]11-15-2024 Telephone encounter Note* Telephone Encounter - Rose Velasquez APRN.MAHENDRA - 10/06/2024 10:07 AM EST Voicemail left for Angela at [phone]. Call back number given. 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 My note was forward to Dr. Hoover for review. At this time we recommend follow up and new imaging in 1 year. Rose Velasquez, MSN, ESOL TEACHER, MECHANICAL ASSEMBLER Certified Nurse Practitioner [facility] Work Phone: [phone] Miscellaneous Notes* Telephone Encounter - Rose Velasquez APRN.CNP - 10/06/2024 10:07 AM EST Voicemail left for Angela at [phone]. Call back number given. 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 My note was forward to Dr. Hoover for review. At this time we recommend follow up and new imaging in 1 year. Rose Velasquez, MSN, ESOL TEACHER, MECHANICAL ASSEMBLER Certified Nurse Practitioner * Telephone Encounter - Jessica Ashley - 10/04/2024 3:18 PM EST General Call Caller : Angela Contact Reason for Call : Did you speak with Dr. Hoover regarding her most recent appt? Patient requesting return call ? Yes [facility]11-[facility] Telephone encounter Note * Telephone Encounter - Jessica Ashley - 10/04/2024 3:18 PM EST General Call Caller : Angela Contact Reason for Call : Did you speak with Dr. Hoover regarding her most recent appt? Patient requesting return call ? Yes [facility]11-05-2024 History of Present illness Narrative* Rose Velasquez APRN.CNP - 09/26/2024 1:42 PM EST Images from the original note were not included. Neurological [place] [facility] NEURO-ONCOLOGY OUTPATIENT CLINIC NOTE [...] 20 mg capsule 20 mg once daily. oinkcbvqabcyt-jayqllzwulewbtuweh-igszravhqhqix (MIDRIN) 65-100-325 mg per capsule 1 capsule [...] DATE OF EXAM: Sep 26 2024 12:29PM [facility] 0295 - MRI BRAIN WO/W IVCON [...] ridge presumed meningioma compared to 03/02/2024. Sales Operations Analyst: ALLYSSA Transcribe Date/Time: Sep 26 2024 2:10P [...] - All questions were answered. Rose Velasquez APRN.MECHANICAL ASSEMBLER Certified Nurse Practitioner cc: Donnell Hoover MD - Epic documented in this [facility]11-[facility] History of Present illness Narrative* Jessica [...] 2024 TIME: 11:27 AM documented in this [facility]09-[facility] History of Present illness Narrative* Bia Cao [...] the past. [place] not currently have an managing cognitive engineer. SUBJECTIVE: MEDICATIONS: Current Outpatient Medications Medication Instructions albuterol HFA 90 mcg/act inhaler 2 puffs, Inhalation, Every 4 hours alendronate (FOSAMAX) 70 mg, Oral, Every 7 days amitriptyline (ELAVIL) 50 mg, Oral, Nightly Ascorbic Acid (vitamin C) 1000 MG tablet Every 24 hours aspirin 81 mg, Oral, Daily RT atorvastatin (LIPITOR) 40 mg, Oral, Daily buprenorphine (Butrans) 7.5 MCG/HR 1 patch, Transdermal, Weekly tvltittebk-kymtnbogasvkp-apexbtyd 50-325-40 MG tablet 1 tablet, Oral, Every [...] an hour after taking 100mg hydralazine. Lactobacillus ([place] Women) capsule as directed Orally levothyroxine (Synthroid, [...] provided. She does not currently have an managing cognitive engineer but is open to seeing one. A COVID-19 test was conducted today, which returned negative. She is advised to stay hydrated. If her condition deteriorates, a repeat COVID-19 test will be necessary. documented in this encounterResearch Medical Center-Brookside [id number] History of Present illness Narrative* Bia Cao [...] (Butrans) 7.5 MCG/HR 1 patch, Transdermal, Weekly onuxxjpqal-vyhhyteaijwgw-izdoiuqa 50-325-40 MG tablet 1 tablet, Oral, Every [...] 1953 APPENDECTOMY 1965 BREAST BIOPSY x4 - [id number] CHOLECYSTECTOMY 2002 EYE SURGERY 01/21/2023 retinal repair [facility] HEMANGIOMA EXCISION 194 from upper back HYSTERECTOMY 1984 KNEE SURGERY Bilateral arthroscopic knee surgery x3 (Rx2, Lx1) ([id number]) LAPAROTOMY OOPHERECTOMY 1985 LUMBAR DISCECTOMY 1990 partial LUMBAR DISCECTOMY 01/14/2017 Microdiscetomy L5-S1 LUMBAR DISCECTOMY 07/03/2021 L1-2 partial discectomy, L1-2, L2-3 cleaning out of stenosis in the spinal canal [facility] LUMBAR EPIDURAL INJECTION 12/20/2020 Dr Clifton [...] Sister Jannette Nascimento Cancer Mother's Sister Nisa Udnham Cancer Mother's Sister Janet Mejia COPD Father's [...] Never Depression: At risk (07/13/2024) Received from [employer] PHQ-2 Total Score: 3 REVIEW OF SYMPTOMS: [...] 25 mg were renewed and sent to [facility] pharmacy. Follow-up The patient will follow up in 4 months. documented in this encounterResearch Medical Center-Brookside [id number] History of Present illness Narrative* Bia Cao [...] consulted with Dr. Romano, a urologist in [place], some time ago but has not soughturological [...] (Butrans) 7.5 MCG/HR 1 patch, Transdermal, Weekly xfbpkbczma-anczcgsyzrrmu-ngvhlquy 50-325-40 MG tablet 1 tablet, Oral, Every [...] 1952 APPENDECTOMY 1965 BREAST BIOPSY x4 - [phone] CHOLECYSTECTOMY 2001 EYE SURGERY 01/21/2023 retinal repair [facility] HEMANGIOMA EXCISION 194 from upper back HYSTERECTOMY 1984 KNEE SURGERY Bilateral arthroscopic knee surgery x3 (Rx2, Lx1) ([id number]) LAPAROTOMY OOPHERECTOMY 1985 LUMBAR DISCECTOMY 1989 partial LUMBAR DISCECTOMY 01/14/2017 Microdiscetomy L5-S1 LUMBAR DISCECTOMY 07/03/2021 L1-2 partial discectomy, L1-2, L2-3 cleaning out of stenosis in the spinal canal [facility] LUMBAR EPIDURAL INJECTION 12/20/2020 Dr Clifton [...] Depression: Not at risk (03/10/2024) Received from [employer], [employer] PHQ-2 Total Score: 0 REVIEW OF SYMPTOMS: [...] prescribed by Dr. Márquez documented in this encounterResearch Medical Center-Brookside [id number] Instructions* Patient Instructions* Anson Ennis MD - 04/04/2024 12:35 PM EDT - obtain follow up MRI brain wwo in 6 months - please follow up with your criminal defense attorney (we do not think the etiology of your hearing loss is due to your meningioma) - our team will notify Dr. Bia Cao regarding these findings; we recommend investigating other etiologies of imbalance in Mrs. Ruth documented in this encounterEast [facility] Hospital05-14-2024 Nurse Note* Josette Sheppard MA - 04/04/2024 11:29 AM EDT Additional intake questions: Has the patient had fever, nausea, vomiting, diarrhea, constipation, fatigue for > 1 week? No Does the patient have a decreased appetite? No Does patient want to see a Gold Leaf Laborer? No (yes to any of above refer patient to schedulers for dietitian appointment) ) Does patient have any new or increased numbness or tingling of extremities? No Is patient interested in fertility information? No Does patient need any prescription refills? No Does patient have an advanced directive in place? Yes, no copy found in [facility] Patient referred to [facility] Electronically Signed By: Josette Sheppard MA [facility]05-14-2024 Nurse Note* Josette Sheppard MA - 04/04/2024 11:29 AM EDT Additional intake questions: Has the patient had fever, nausea, vomiting, diarrhea, constipation, fatigue for > 1 week? No Does the patient have a decreased appetite? No Does patient want to see a Gold Leaf Laborer? No (yes to any of above refer patient to schedulers for dietitian appointment) ) Does patient have any new or increased numbness or tingling of extremities? No Is patient interested in fertility information? No Does patient need any prescription refills? No Does patient have an advanced directive in place? Yes, no copy found in [facility] Patient referred to [facility] Electronically Signed By: Josette Sheppard MA documented in this encounterEast Ohio Regional Hospital05-14-2024 History of Present illness Narrative* Donnell Hoover MD - 04/04/2024 10:30 AM EDT Images from the original note were not included. SECTION OF SKULL BASE SURGERY MINIMALLY INVASIVE CRANIAL BASE & PITUITARY SURGERY PROGRAM Jessica Caro [facility] [place] CC: Patient Care Team: Bia Cao as PCP ([facility]) Corey Chacon MD as NI Referring Team [...] our skull base team advance practice providers ([place] preference). - follow up with criminal defense attorney for hearing loss which is unrelated to [...] reflects work and decisions made by me. Donnell Hoover MD Medical Decision Making: Problems: Moderate: [...] Patient is accompanied by her granddaughter (her bookmobile driver) and great grand daughter). The patient [...] contrast and shows a 1.2 cm R AIDS COUNSELOR contrast-enhancing lesion concerning for either schwannoma or meningioma- no associated mass effect or edema. The patient takes ASA 81 mg daily for cardioprotection per her PCP. The patient has been using a cane for the last 5-6 years. The patient reports that ~6 weeks ago, she walked into her garage door and fell. The patient has not seen an criminal defense attorney or a vestibular therapist. Past Medical History: [...] 20 mg capsule 20 mg once daily. jfgqixztjagnu-cpooyqwmzhawdxlzcb-iqagjcvfshnwj (MIDRIN) 65-100-325 mg per capsule 1 capsule [...] contrast and shows a 1.2 cm R AIDS COUNSELOR contrast-enhancing lesion extra-axial mass arising from the right posterior petrous ridge with no significant mass effect and not abutting the right vestibular cochlear complex. documented in this encounterEast [facility] Hospital05-07-2024 Telephone encounter Note * Telephone Encounter - Etelvina Trujillo - 03/28/2024 10:11 AM EDT Called patient to schedule an appointment. No ans/left message to call the office back. Appointment scheduled: 04/04/2024 10:30 AM (Arrive by 10:15 AM) Donnell Hoover MD [facility] [place] RAMAN Alonso [facility]05-07-2024 Miscellaneous Notes* Telephone Encounter - Etelvina Trujillo - 03/28/2024 10:11 AM EDT Called patient to schedule an appointment. No ans/left message to call the office back. Appointment scheduled: 04/04/2024 10:30 AM (Arrive by 10:15 AM) Donnell Hoover MD [facility] [place] RAMAN Alonso * Telephone Encounter - Rose Velasquez APRN.CNP - 03/28/2024 9:55 AM EDT Time Frame: First available Provider: Kiko Landrum Soni Referring: Corey Chacon MD [facility] to be [facility] from [facility] Dx: Right CPA mass Patient: Angela Ruth Address: Angela Ruth [id number] [facility] [place] [address] Per Triage: HISTORY OF PRESENT ILLNESS Angela [...] extracranial soft tissues are unremarkable. Rose Velasquez APRN.MECHANICAL ASSEMBLER March 28, 2024 * Telephone Encounter - Shelli Fletcher - 03/24/2024 4:55 PM EDT [facility] Reason for visit: consideration of gamma knife for 1.2 cm enhancing lesion at right cerebelloponitine angle with leading differential including vestibular schwannoma and meningioma External records: Sent with referral and pulled from [facility] Triage: Required, forwarded to [facility] by telephone encounter sent to [facility] Scheduling Triage. Financial clearance: Not required to schedule documented in this encounterEast [facility] Hospital05-07-2024 Telephone encounter Note * Telephone Encounter - Rose Velasquez APRN.MECHANICAL ASSEMBLER - 03/28/2024 9:55 AM EDT Time Frame: First available Provider: Kiko Landrum Soni Referring: Corey Chacon MD [facility] to be [facility] Dx: Right CPA mass Patient: Angela Ruth Address: Angela Ruth [id number] [place] [address] [facility] [address] Per Triage: HISTORY OF PRESENT ILLNESS Angela [...] extracranial soft tissues are unremarkable. Rose Velasquez APRN.MECHANICAL ASSEMBLER March 28, 2024 [facility]05-03-2024 Telephone encounter Note* Telephone Encounter - Shelli Fletcher - 03/24/2024 4:55 PM EDT Referral source: Corey Chacon MD ([facility]) Reason for visit: consideration of gamma knife for 1.2 cm enhancing lesion at right cerebelloponitine angle with leading differential including vestibular schwannoma and meningioma External records: Sent with referral and pulled from [facility] Triage: Required, forwarded to [facility] by telephone encounter sent to [facility] Scheduling Triage. Financial clearance: Not required to schedule [facility]* Diagnosis General weakness- Primary Other malaise and fatigue History of falling documented in this encounter [facility]* Diagnosis Mixed hyperlipidemia (CMS/HCC)- Primary Mixed hyperlipidemia Stress incontinence of urine documented in this encounter [facility]* Diagnosis General weakness- Primary Other malaise and fatigue History of falling documented in this encounter [facility]* Diagnosis General weakness- Primary Other malaise and fatigue History of falling documented in this encounter [facility]* Diagnosis Brain mass [G93.89]- Primary Unspecified condition of brain documented in this encounter [facility]* Diagnosis Intracranial meningioma (HCC)- Primary Benign neoplasm of cerebral meninges Sensorineural hearing loss (SNHL) of right ear, unspecified hearing status on contralateral side Dizziness Dizziness and giddiness documented in this encounter [facility]* Diagnosis Intracranial meningioma (HCC)- Primary Benign neoplasm of cerebral meninges Benign neoplasm of meninges (HCC) Benign neoplasm of cerebral meninges documented in this [facility]* Diagnosis Benign neoplasm of meninges (HCC)- Primary Benign neoplasm of cerebral meninges Dizziness Dizziness and giddiness documented [facility] this [facility]* Diagnosis Benign neoplasm of meninges (HCC) Benign neoplasm of cerebral meninges [facility] this [facility]* Diagnosis Dermatophytosis of nail- Primary Dystrophic nail Other specified disease of nail Pain around toenail, right foot Pain around toenail, left foot documented in this encounter [facility]* Diagnosis Hoarse- Primary Dysphonia Purulent postnasal drainage Primary insomnia Persistent disorder of initiating or maintaining sleep Gastroesophageal reflux disease without esophagitis Esophageal reflux documented in this encounter [facility]* Diagnosis Hyperlipidemia, unspecified hyperlipidemia type ([facility]/HCC) documented in this encounter [facility]* Diagnosis Urinary frequency- Primary Dysuria Chronic idiopathic constipation Unspecified constipation Chronic right-sided thoracic back pain Chronic right-sided thoracic back pain documented in this encounter [facility]* Diagnosis Acute cystitis without hematuria- Primary documented in this encounter [facility]* Diagnosis Acute bronchitis, unspecified organism- Primary Seasonal allergic rhinitis due to pollen documented in this encounter [facility]* Diagnosis Anemia, unspecified type- Primary documented in this encounter [facility]* Diagnosis Hypothyroidism, unspecified type- Primary Age-related osteoporosis without current pathological fracture Vitamin D deficiency [facility] Diagnosis Osteoporosis, unspecified osteoporosis type, unspecified pathological fracture presence- Primary [facility] Diagnosis Urinary frequency- Primary Essential hypertension (CMS/HCC) Unspecified essential hypertension Age-related osteoporosis without current pathological fracture ([facility]/HCC) documented in this encounter [facility]* Diagnosis Acute cystitis without hematuria- [...] depressive disorder, single episode, in full remission ([facility]) Major depressive disorder, 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 Fall, subsequent encounter Gastroesophageal reflux disease without esophagitis Esophageal reflux documented in this encounter [facility]* Diagnosis Hematuria, unspecified type documented in this encounter [facility]* Diagnosis Acute cystitis with hematuria- Primary documented in this encounter [facility]* Diagnosis Mixed hyperlipidemia ([facility]) Mixed hyperlipidemia Anxiety Anxiety state, unspecified documented [...] [facility] Diagnosis Essential hypertension ([facility])- Primary Unspecified essential hypertension documented in this encounter [facility]* Diagnosis Urge incontinence- Primary Frequent UTI Urinary tract infection, site not specified documented [facility]* Diagnosis Urge incontinence- Primary Frequent UTI Urinary tract infection, site not specified Osteoporosis, unspecified osteoporosis type, unspecified pathological fracture presence- Primary [facility]* Diagnosis Moderate persistent asthma, unspecified whether complicated ([facility]) documented in this encounter [facility]* Diagnosis Intractable migraine with aura without status migrainosus ([facility])- Primary Fall, subsequent encounter Essential hypertension ([facility]) Unspecified essential hypertension documented in this encounter [facility]* Diagnosis Urge incontinence- Primary Frequent UTI Urinary tract infection, site not specified Osteoporosis, unspecified osteoporosis type, unspecified pathological fracture presence- Primary [facility] Diagnosis Urge incontinence- Primary Frequent UTI Urinary tract infection, site not specified Osteoporosis, unspecified osteoporosis type, unspecified pathological fracture presence- Primary Hypothyroidism, unspecified type Age-related osteoporosis without current pathological fracture Vitamin D deficiency [facility]* Diagnosis Urge incontinence- Primary Frequent UTI Urinary tract infection, site not specified Kidney stones- Primary Calculus of kidney Urge incontinence Osteoporosis, unspecified osteoporosis type, unspecified pathological fracture presence- Primary [facility]* Diagnosis Urge incontinence- Primary Frequent UTI Urinary tract infection, site not specified Kidney stones- Primary Calculus of kidney Urge incontinence documented in this encounter [facility]* Diagnosis Primary insomnia Persistent disorder of initiating or maintaining sleep Major depressive disorder, single episode, in full remission Major depressive disorder, 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 documented in this encounter [facility]* Diagnosis Stage 3b chronic kidney disease (CKD) ([facility]) Major depressive disorder, single episode, in full remission Major depressive disorder, 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 Age-related osteoporosis without current pathological fracture Moderate persistent asthma without complication ([facility]) Diastolic dysfunction with chronic heart failure (HCC) Chronic idiopathic constipation Unspecified constipation Mild intermittent asthma without complication ([facility]) Interstitial pulmonary disease, unspecified ([facility]) documented in this encounter [facility]* Diagnosis Urge incontinence- Primary Frequent UTI Urinary tract infection, site not specified Kidney stones- Primary Calculus of kidney Urge incontinence Osteoporosis, unspecified osteoporosis type, unspecified pathological fracture presence- Primary [facility]* Diagnosis Stage 3b chronic kidney disease (CKD) ([facility]) Major depressive disorder, single episode, in full [...] this encounter [facility]* Diagnosis Stage 3b chronic kidney disease (CKD) ([facility]-HCC) Major depressive disorder, single episode, in full remission Major depressive disorder, 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 Treatment calendar given. documented in this encounterProSt. Rita'S HospitalPower Analog Microelectronics SystemInstructionsNot on file documented in this encounterProMediPower Analog Microelectronics SystemInstructionsNot on file documented in this encounterProMediPower Analog Microelectron[employer] SystemInstructionsNot on file documented in this encounterProMediPower Analog Microelectronics SystemInstructionsNot on file documented in this encounterProMediPower Analog Microelectronics SystemInstructionsNot on file documented in this encounterProMediPower Analog Microelectron[employer] SystemInstructionsNot on file documented in this encounterProMediPower Analog Microelectronics SystemInstructionsNot on file documented in this encounterProMediPower Analog Microelectronics SystemInstructionsNot on file documented in this encounterProMediBrecksville VA / Crille [facility] SystemInstructionsNot on file documented in this encounterProSheltering Arms Hospital SystemInstructionsNot on file documented in this encounterProSheltering Arms Hospital SystemReason for referral (narrative)* Consultation (Routine) - AuthorizedSpecialtyDiagnoses / Procedures Referred By ContactReferred To ContactUrology Diagnoses Urinary frequency Procedures MD OFFICE/OUTPATIENT NEW HIGH MDM 60 MINUTES Bia Cao MD [address] [place] [address] Maria C Kramer MD [address] [place] [address] Referral IDStatusReasonart DateExpiration DateVisits RequestedVisits [id number] Specialty Services Required / NOMS HealthcareReason for visit Narrative* Episode Based Medications (Routine) - AuthorizedSpecialtyDiagnoses / ProceduresReferred By ContactReferred To Contact Diagnoses Osteoporosis, unspecified osteoporosis type, unspecified pathological fracture presence Procedures MD ROMOSOZUMAB INJECTION John Jhonson MD [address] [facility], [address] [place] [address] Phone: tel: fax: Meggan Hunter [facility] - Medical Oncology [address] [place] [phone] Phone: tel: fax: Referral IDStatusReasonStart DateExpiration DateVisits RequestedVisits [id number]/15/20251/212 [facility] System Summary Purpose Family History No Family History Records FoundNo Family History Records FoundNo Family History Records FoundNo Family History Records FoundNo Family History Records FoundNo Family History Records FoundNo Family History Records FoundNo Family History Records FoundNo Family History Records FoundNo Family History Records Found Advance Directives No Advanced Directives Records FoundDocuments on File TypeDate RecordedPatient RepresentativeExplanationDurable Power of Controls Designer 07/16/2021 3:45 PMLiving Will07/16/2021 3:40 PMDate ActivatedDate Inactivated Comments03/02/2023 4:15 AM03/03/2023 3:57 PMDate ActivatedDate InactivatedComments 07/03/2021 9:57 AM07/10/2021 6:07 PMDate ActivatedDate InactivatedComments 01/04/2018 4:32 PM2 6:44 PMDate ActivatedDate InactivatedComments 01/14/2017 8:37 AM01/15/2017 5:28 PMTypeDate RecordedPatient Pre K Lead Teacher ExplanationDurable Power of Attorney07/16/2021 3:45 PMLiving Will07/16/2021 3:40 PMDate ActivatedDate InactivatedComments03/02/2023 4:15 AM03/03/2023 3:57 PMDate ActivatedDate InactivatedComments07/03/2021 9:57 AM07/10/2021 6:07 PMDate ActivatedDate InactivatedComments01/04/2018 4:32 PM2 6:44 PMDate ActivatedDate InactivatedComments01/14/2017 8:37 AM01/15/2017 5:28 PM Reason for Referral SpecialtyDiagnoses / ProceduresReferred By ContactReferred To ContactMR IMAGING Diagnoses Benign neoplasm of meninges (HCC) Procedures MRI BRAIN WO/W IVCON MRI BRAIN BRAIN STEM W/O W/CONTRAST MATERIAL Donnell Hoover MD [address] [place] [address] [facility] [place] [address] Referral IDStatusReasonStart DateExpiration DateVisits RequestedVisits [id number] Review Auto-Generated Referral /[id number] / ProceduresReferred By ContactReferred To ContactMR IMAGING Diagnoses Benign neoplasm of meninges (HCC) Procedures MRI BRAIN WO/W IVCON MRI BRAIN BRAIN STEM W/O W/CONTRAST MATERIAL Rose Velasquez APRN.CNP [address] [place] [id number] [place] [address] Referral IDStatusReasonStart DateExpiration DateVisits RequestedVisits [id number] Request Auto-Generated Referral /[id number] IDStatusReasonStart DateExpiration DateVisits RequestedVisits [id number] Auto-Generated Referral / Additional Source Comments INFORMATION SOURCE (unrecogn ized section and content) DATE CREATED AUTHOR 05/16/2018 [facility] DATE CREATED AUTHOR AUTHOR'S ORGANIZ ATION 06/21/2019 [facility] DATE CREATED AUTHOR AUTHOR'S ORGANIZ ATION 11/13/2022 [facility] DATE CREATED AUTHOR AUTHOR'S ORGANIZ ATION 12/07/2022 [facility] Dredge Engineer DATE CREATED AUTHOR AUTHOR'S ORGANIZ ATION 04/21/2025 [facility] DATE CREATED AUTHOR AUTHOR'S ORGANIZ ATION 06/15/2025 [facility] DATE CREATED AUTHOR AUTHOR'S ORGANIZ ATION 07/12/2025 [facility] DATE CREATED AUTHOR AUTHOR'S ORGANIZ ATION 09/07/2025 [facility] DATE CREATED AUTHOR AUTHOR'S ORGANIZ ATION 09/30/2025 [facility] DATE CREATED AUTHOR AUTHOR'S ORGANIZ ATION 10/02/2025 [facility] Reason for Visit (unrecogniz ed section and content) ReasonCommentsInjectionevenitySpecialtyDiagnoses / ProceduresReferred By Contact Referred To Contact Diagnoses Osteoporosis, unspecified osteoporosis type, unspecified pathological fracture presence Procedures MD ROMOSOZUMAB INJECTION John Johnson MD [address] [facility] [place] [address] Phone: tel: fax: Meggan [facility] - [facility] On[facility] [address] [place] [phone] Phone: tel: fax: Referral IDStatusReasonStart DateExpiration DateVisits RequestedVisits [id number] InfusionEvenitySpecialtyDiagnoses / ProceduresReferred By ContactReferred To ContactPhysical Therapy Diagnoses Muscle weakness (generalized) Procedures TREATMENT Bia Cao MD [address] [place] [address] Jonny Salazar, PT [address] [place] [address] Referral IDStatusReasonStmilldale DateExpiration DateVisits RequestedVisits [id number]/17/20247/15/[id number] RefillReason CommentsReceived Outside Medical RecordsExternal referral to Neurological InstitutetriageNintegris grove [facility] Triage CallAppointmentReasonCommentsConsultReasonComments New PatientIntracranial MeningiomaReasonCommentsRadiology MRISpecialtyDiagnoses / ProceduresReferred By ContactReferred To ContactMR IMAGING Diagnoses Benign neoplasm of meninges (HCC) Procedures MRI BRAIN WO/W IVCON MRI BRAIN BRAIN STEM W/O W/CONTRAST MATERIAL Donnell Hoover MD [address] [place] [address] Mr Imaging [facility] Referral IDStatusReBibb Medical Center DateExpiration DateVisits RequestedVisits [id number] Auto-Generated Referral /[id number] QuestionReasonCommentsIngrown Toenail Established pt presents today for [...] By ContactReferred To ContactOtolaryngology Diagnoses Hoarse Procedures MD OFFICE/OUTPATIENT NEW HIGH MDM 60 MINUTES Tae Hardy, TIESHA [address] [place] [address] Phone: tel: fax: Katerin Alvarado MD [address] [facility] [address] [place] [address] Phone: tel: fax: Referral IDStatusReasonStart DateExpiration DateVisits RequestedVisits [id number] Specialty Services Required /[id number] ThroatCoughReasonCommentsFollow-up1 month follow xwBxhoxiIxcstyfwOtqxim-qdXpurfvNnrryeofNrfxvg-gkUzmWgmaypHktsu Date Commentsoutgoing zosfuyym63/17/2025ReasonCommentsInjectionEvenity Care Teams (unrecognized sec tion and content) Team MemberRelationshipSpecialtyStart DateEnd Date Jacob Viveros PCP - [employer]11/22/22 Bia Cao MD [address] [place] [address] PCP - Generalmily Medicine04/29/23Team MemberRelationshipSpecialtyStart DateEnd Date Jacob Viveros PCP - [employer]11/22/22 Bia Cao MD [address] [place] [address] PCP - GeneralFamily Medicine04/29/23Team MemberRelationshipSpecialtyStart DateEnd Date Jacob Viveros PCP - [employer]11/22/22 iBa Cao MD [address] [place] [address] PCP - GeneralFamily Medicine04/29/23Team MemberRelationshipSpecialtyStart DateEnd Date Jacob Viveros Anny PCP - [employer]11/22/22 Bia Cao MD [address] [place] [address] PCP - GeneralFamily Medicine04/29/23Team MemberRelationshipSpecialtyStart DateEnd Date Jacob Viveros Anny PCP - [employer]11/22/22 Bia Cao MD [address] [place] [address] PCP - Generalmily Medicine04/29/23Team MemberRelationshipSpecialtyStart DateEnd Date Jacob Viveros Anny PCP - [employer]11/22/22 Bia Cao MD [address] [place] [address] PCP - Generalmily Medicine04/29/23Team MemberRelationshipSpecialtyStart DateEnd Date (Hist), No Pcp PCP - Mfyayvx59/14/17 Corey Chacon MD [address] [place] [address] NI Referring TeamNeurosurgery03/24/24Team MemberRelationshipSpecialtyStart DateEnd Date (Hist), No Pcp PCP - Oebsayw75/14/17 Corey Chacon MD [address] [place] [address] NI Referring TeamNeurosurgery03/24/24Team MemberRelationshipSpecialtyStart DateEnd Date (Hist), No Pcp PCP - Jiohrcx46/14/17 Corey Chacon MD [address] [address] NI Referring TeamNeurosurgery/02/12Team MemberRelationshipSpecialtyStart DateEnd Date (Hist), No Pcp PCP - Oswegsj98/14/17 Corey Chacon MD NI Referring TeamNeurosurgery/02/12Team MemberRelationshipSpecialtyStart DateEnd Date (Hist), No Pcp PCP - Pzqewtx32/14/17 Corey Chacon MD NI Referring TeamNeurosurgery03/24/24Team MemberRelationshipSpecialtyStart DateEnd Date (Hist), No Pcp PCP - Igyjfzw85/14/17 Corey Chacon MD NI Referring TeamNeurosurgery03/24/24Team MemberRelationshipSpecialtyStart DateEnd Date Jacob Viveros PCP - [employer]11/22/21 Bia Cao MD [address] [place] [address] PCP - GeneralFamily Medicine04/29/23Team MemberRelationshipSpecialtyStart DateEnd Date Jacob Viveros PCP - [employer]et[employer]11/22/21 Bia Cao MD [address] [place] [address] PCP - GeneralFamily Medicine04/29/23Team MemberRelationshipSpecialtyStart DateEnd Date Jacob Viveros PCP - [employer]et[employer]11/22/21 Bia Cao MD [address] [facility] [place] [address] PCP - GeneralFamily Medicine04/29/23Team MemberRelationshipSpecialtyStart DateEnd Date Jcaob Viveros PCP - [employer]et[employer]11/22/21 Bia Cao MD [address] [facility] [place] [address] PCP - GeneralFamily Medicine04/29/23Team MemberRelationshipSpecialtyStart DateEnd Date Jacob Viveros PCP - [employer]et[employer]11/22/21 Bia Cao MD [address] [facility] [place] [address] PCP - GeneralFamily Medicine04/29/23Team MemberRelationshipSpecialtyStart DateEnd Date Jacob Viveros PCP - [employer]et[employer]11/22/21 Bia aCo MD [address] [facility] [place] [address] PCP - GeneralFamily Medicine04/29/23Team MemberRelationshipSpecialtyStart DateEnd Date Jacob Viveros PCP - [employer]et[employer]11/22/21 Bia Cao MD [address] [facility] [place] [address] PCP - GeneralFamily Medicine04/29/23Team MemberRelationshipSpecialtyStart DateEnd Date Jacob Viveros PCP - [employer]et[employer]11/22/21 Bia Cao MD [address] [facility] [place] [address] PCP - GeneralFamily Medicine04/29/23Team MemberRelationshipSpecialtyStart DateEnd Date Jacob Viveros PCP - [employer]et[employer]11/22/21 Bia Cao MD [address] [facility] [place] [address] PCP - GeneralFamily Medicine04/29/23Team MemberRelationshipSpecialtyStart DateEnd Date Bia Cao MD PCP - GeneralFamily Medicine02/05/23Team MemberRelationshipSpecialtyStart DateEnd Date Bia Cao MD PCP - GeneralFamily Medicine02/05/23Team MemberRelationshipSpecialtyStart DateEnd Date Bia Cao MD [address] [facility] [place] [address] PCP - Generalmily Medicine04/29/23 Bia Cao MD [address] [facility] [place] [address] PCP - [employer]et[employer]11/22/21Team MemberRelationshipSpecialtyStart DateEnd Date Bia Cao MD [address] [facility] [place] [address] PCP - GeneralFamily Medicine04/29/23 Bia Cao MD [address] [facility] [place] [address] PCP - Aetna11/22/21Team MemberRelationshipSpecialtyStart DateEnd Date Bia Cao MD [address] [facility] [place] [address] PCP - Generalmily Medicine04/29/23 Bia Cao MD [address] [facility] [place] [address] PCP - Aetna11/22/21Team MemberRelationshipSpecialtyStart DateEnd Date Bia Cao MD [address] [facility] [place] [address] PCP - [facility] Medicine04/29/23 Bia Cao MD [address] [facility] [place] [address] PCP - [employer]etna11/22/21Team MemberRelationshipSpecialtyStart DateEnd Date Bia Cao MD PCP - Generalmily Medicine02/05/23Team MemberRelationshipSpecialtyStart DateEnd Date Bia Cao MD PCP - Generalmily Medicine02/05/23Team MemberRelationshipSpecialtyStart DateEnd Date Bia Cao MD [address] [place] [address] [facility] - [facility]04/29/23 Bia Cao MD [address] [place] [address] PCP - Aetna11/22/21Team MemberRelationshipSpecialtyStart DateEnd Date Bia Cao MD [address] [place] [address] PCP - Generalmily Medicine04/29/23 Bia Cao MD [address] [place] [address] PCP - [employer]etna11/22/21Team MemberRelationshipSpecialtyStart DateEnd Date Bia Cao MD [address] [place] [address] PCP - [facility] Medicine04/29/23 Bia Cao MD [address] [place] [address] PCP - [employer]etna11/22/21Team MemberRelationshipSpecialtyStart DateEnd Date Bia Cao MD [address] [place] [address] PCP - Generalmily Medicine04/29/23 Bia Cao MD [address] [place] [address] PCP - Aetna11/22/21Team MemberRelationshipSpecialtyStart DateEnd Date Bia Cao MD [address] [place] [address] PCP - Generalmily Medicine04/29/23 Bia Cao MD [address] [place] [address] PCP - Aetna11/22/21Team MemberRelationshipSpecialtyStart DateEnd Date Bia Cao MD [address] [place] [address] PCP - GeneralFamily Medicine04/29/23 Bia Cao MD [address] [facility] [place] [address] PCP - Aetna11/22/21Team MemberRelationshipSpecialtyStart DateEnd Date Bia Cao MD [address] [facility] [place] [address] PCP - GeneralFamily Medicine04/29/23 Bia Cao MD [address] [facility] [place] [address] PCP - Aetna11/22/21Team MemberRelationshipSpecialtyStart DateEnd Date Bia Cao MD [address] [facility] [place] [address] PCP - GeneralFamily Medicine04/29/23 Bia Cao MD [address] [facility] [place] [address] PCP - Aetna11/22/21Team MemberRelationshipSpecialtyStart DateEnd Date Bia Cao MD [address] [facility] [place] [address] PCP - GeneralFamily Medicine04/29/23 Bia Cao MD [address] [place] [address] PCP - Aetna11/22/21Team MemberRelationshipSpecialtyStart DateEnd [facility] Bia Cao MD [address] [place] [address] PCP - GeneralFamily Medicine04/29/23 Bia Cao MD [address] [place] [address] PCP - Aetna11/22/21Team MemberRelationshipSpecialtyStart DateEnd [facility] Bia Cao MD PCP - GeneralFamily Medicine02/05/23Team MemberRelationshipSpecialtyStart DateEnd Date Bia Cao MD PCP - GeneralFamily Medicine02/05/23Team MemberRelationshipSpecialtyStart DateEnd Date Bia Cao MD [address] [place] [address] PCP - GeneralFamily Medicine04/29/23 Bia Cao MD [address] [place] [address] PCP - Aetna11/22/21Team MemberRelationshipSpecialtyStart DateEnd Date Bia Cao MD PCP - GeneralFamily Medicine02/05/23Team MemberRelationshipSpecialtyStart DateEnd Date Bia Cao MD PCP - GeneralFamily Medicine02/05/23Team MemberRelationshipSpecialtyStart DateEnd Date Bia Cao MD PCP - GeneralFamily Medicine02/05/23Team MemberRelationshipSpecialtyStart DateEnd Date Bia Cao MD PCP - GeneralFamily Medicine02/05/23Team MemberRelationshipSpecialtyStart DateEnd Date Bia Cao MD [address] [place] [address] PCP - GeneralFamily Medicine04/29/23 Bia Cao MD [address] [place] [address] PCP - Aetna11/22/21Team MemberRelationshipSpecialtyStart DateEnd Date Bia Cao MD PCP - GeneralFamily Medicine02/05/23Team MemberRelationshipSpecialtyStart DateEnd Date Bia Cao MD PCP - GeneralFamily Medicine02/05/23Team MemberRelationshipSpecialtyStart DateEnd Date Bia Cao MD PCP - GeneralFamily Medicine02/05/23Team MemberRelationshipSpecialtyStart DateEnd Date Bia Cao MD PCP - GeneralFamily Medicine02/05/23Team MemberRelationshipSpecialtyStart DateEnd Date Bia Cao MD [address] [place] [address] PCP - GeneralFamily Medicine04/29/23 Bia Cao MD [address] [facility] [place] [address] PCP - Aetna11/22/21Team MemberRelationshipSpecialtyStart DateEnd Date Bia Cao MD [address] [facility] [place] [address] PCP - GeneralFamily Medicine04/29/23 Bia Cao MD [address] [facility] [place] [address] PCP - Aetna11/22/21Team MemberRelationshipSpecialtyStart DateEnd Date Bia Cao MD [address] [facility] [place] [address] PCP - GeneralFamily Medicine04/29/23 Bia Cao MD [address] [facility] [place] [address] PCP - Aetna11/22/21Team MemberRelationshipSpecialtyStart DateEnd Date Bia Cao MD PCP - GeneralFamily Medicine02/05/23Team MemberRelationshipSpecialtyStart DateEnd Date Bia Cao MD [address] [place] [address] PCP - GeneralFamily Medicine04/29/23 Bia Cao MD [address] [facility] [place] [address] PCP - Aetna11/22/21Team MemberRelationshipSpecialtyStart DateEnd Date Bia Cao MD PCP - GeneralFamily Medicine02/05/23Team MemberRelationshipSpecialtyStart DateEnd Date Bia Cao MD PCP - GeneralFamily Medicine02/05/23Team MemberRelationshipSpecialtyStart DateEnd Date Bia Cao MD [address] [facility] [place] [address] PCP - GeneralFamily Medicine04/29/23 Bia Cao MD [address] [facility] [place] [address] PCP - Aetna11/22/21Team MemberRelationshipSpecialtyStart DateEnd Date Bia Cao MD [address] [facility] [place] [address] PCP - GeneralFamily Medicine04/29/23 Bia Cao MD [address] [facility] [place] [address] PCP - Aetna11/22/21 Source Comments (unrecognize d section and content) In the event this informatio n is protected by the [facility] Confidentiality of Alcohol and Drug Abuse Patient Records regulations: The Federal rules restrict any use of the information to criminally investigate or prosecute any alcohol or drug abuse patient.[facility] HospitalIn the event this information is protected by the Federal Confidentiality of Alcohol and Drug Abuse Patient Records regulations: The Federal rules restrict any use of the information to criminally investigate or prosecute any alcohol or drug abuse patient.[facility] HospitalIn the event this information is protected by the Federal Confidentiality of Alcohol and Drug Abuse Patient Records regulations: The Federal rules restrict any use of the information to criminally investigate or prosecute any alcohol or drug abuse patient.[facility] HospitalIn the event this information is protected by the Federal Confidentiality of Alcohol and Drug Abuse Patient Records regulations: The Federal rules restrict any use of the information to criminally investigate or prosecute any alcohol or drug abuse patient.[facility] HospitalIn the event this information is protected by the Federal Confidentiality of Alcohol and Drug Abuse Patient Records regulations: The Federal rules restrict any use of the information to criminally investigate or prosecute any alcohol or drug abuse patient.[facility] HospitalIn the event this information is protected by the Federal Confidentiality of Alcohol and Drug Abuse Patient Records regulations: The Federal rules restrict any use of the information to criminally investigate or prosecute any alcohol or drug abuse patient.[facility] FOR RECORDS PERTAINING TO PATIENTS WHO [...] THE PRIMARY CLINICAL RECORDS. [facility] [employer] [facility]. provides no warranty or guarantee of the accuracy or completeness of information in this document.
--- NOTE | 2025-10-17 11:50 | PM.CN ---
Consult Note: HPI Data of Consult Patient: known to practice within the last 3 years Consult date: 08/08/25 Requesting Physician: Nisa Galarza NP Primary Care Provider: TRUE DAVIS Consult Narrative Reason for consult: f/u Narrative: Angela Ruth a 80 year old female presents for evaluation of chronic back pain unresponsive to greater than 6 weeks of PT/HEP, ice, heat, tylenol and NSAIDs. pain secondary to lumbar DDD, lumbar spondylosis, sacroilitis. Hx of lumbar surgery. utilizing Tylenol, aleve, butrans and methocarbamol with benefit without side effects. denies recent falls. Pain today 3/10 aching in middle back. pain increases to 6/10 with standing, walking, twisting, showering, sleeping. denies falls since last visit. prior thoracic xray shows degenerative changes. since last visit she underwent left T8/9 T9/10 medial branch RFA with at least 50% improvement and right T8/9 T9/10 medial branch RFA with >80% improvement ongoing. MAGNO improved to 40% cc:: CC: Nisa Galarza NP Review of Systems ROS Musculoskeletal Reports: back pain PFSH PFSH Medical History TMJ (dislocation of temporomandibular joint) ?S03.00XA - Dislocation of jaw, unspecified side, initial encounter (ICD-10) Neck pain ?M54.2 - Cervicalgia (ICD-10) Back pain ?M54.9 - Dorsalgia, unspecified (ICD-10) Osteoarthritis ?M19.90 - Unspecified osteoarthritis, unspecified site (ICD-10) H/O psychiatric care ?Z92.89 - Personal history of other medical treatment (ICD-10) Heartburn ?R12 - Heartburn (ICD-10) Acid reflux ?K21.9 - Gastro-esophageal reflux disease without esophagitis (ICD-10) Hypothyroid ?E03.9 - Hypothyroidism, unspecified (ICD-10) Kidney stones ?N20.0 - Calculus of kidney (ICD-10) Asthma ?J45.909 - Unspecified asthma, uncomplicated (ICD-10) High cholesterol ?E78.00 - Pure hypercholesterolemia, unspecified (ICD-10) Hypertension ?I10 - Essential (primary) hypertension (ICD-10) Surgical History H/O shoulder surgery ?Z98.890 - Other specified postprocedural states (ICD-10) H/O excision of hemangioma ?Z98.890 - Other specified postprocedural states (ICD-10) ?Z86.018 - Personal history of other benign neoplasm (ICD-10) H/O basal cell carcinoma excision ?Z98.890 - Other specified postprocedural states (ICD-10) ?Z85.828 - Personal history of other malignant neoplasm of skin (ICD-10) H/O lumbosacral spine surgery ?Z98.890 - Other specified postprocedural states (ICD-10) H/O foot surgery ?Z98.890 - Other specified postprocedural states (ICD-10) H/O hand surgery ?Z98.890 - Other specified postprocedural states (ICD-10) H/O wrist surgery ?Z98.890 - Other specified postprocedural states (ICD-10) History of cholecystectomy ?Z90.49 - Acquired absence of other specified parts of digestive tract (ICD-10) H/O breast biopsy ?Z98.890 - Other specified postprocedural states (ICD-10) History of appendectomy ?Z90.49 - Acquired absence of other specified parts of digestive tract (ICD-10) History of tonsillectomy and adenoidectomy ?Z90.89 - Acquired absence of other organs (ICD-10) Meds Home Medications and Allergies Home Medications ?Medication ?Instructions ?Recorded ?Confirmed ?Type acetaminophen 650 mg 1,300 mg PO Q8H PRN pain 07/07/23 09/17/25 History tablet,extended release (Arthritis Pain Relief (acetaminophen) ER) albuterol 90 mcg/actuation aerosol 90 mcg inhalation .every 4 hours 07/07/23 09/17/25 History inhaler PRN shortness of breath or wheezing ascorbic acid (vitamin C) 500 mg 500 mg PO BID 07/07/23 09/17/25 History tablet,extended release (C Complex) aspirin 81 mg tablet,delayed 81 mg PO DAILY 07/07/23 09/17/25 History release (Adult Aspirin Regimen) atorvastatin 40 mg tablet 40 mg PO DAILY 07/07/23 09/17/25 History calcium carbonate (Calcium 600) 600 mg PO DAILY 07/07/23 09/17/25 History carvedilol 25 mg tablet 25 mg PO BID 07/07/23 09/17/25 History cholecalciferol (vitamin D3) 50 200 mcg PO DAILY 07/07/23 09/17/25 History mcg (2,000 unit) tablet (Vitamin D3) escitalopram oxalate 20 mg tablet 20 mg PO DAILY 07/07/23 09/17/25 History fenofibrate 160 mg tablet 160 mg PO DAILY 07/07/23 09/17/25 History fexofenadine 180 mg tablet 180 mg PO DAILY 07/07/23 09/17/25 History hydralazine 100 mg tablet 100 mg PO TID 07/07/23 09/17/25 History levothyroxine 150 mcg capsule 150 mcg PO DAILY 07/07/23 09/17/25 History lisinopril 20 1 tab PO DAILY 07/07/23 09/17/25 History mg-hydrochlorothiazide 12.5 mg tablet magnesium 250 mg tablet 250 mg PO DAILY 07/07/23 09/17/25 History vpwskdcf-vac-wkgwn acid 0.4 1 tab PO DAILY 07/07/23 09/17/25 History mg-lycopene 300 mcg-lutein 250 mcg tablet (Centrum Silver) omeprazole 40 mg capsule,delayed 40 mg PO DAILY 07/07/23 09/17/25 History release oxybutynin chloride 10 mg 10 mg PO DAILY 07/07/23 09/17/25 History tablet,extended release 24 hr methocarbamol 500 mg tablet See Rx Instructions .Route 04/04/25 09/17/25 Rx .COMPLEX #120 tabs romosozumab-aqqg 210 mg/2.34 mg subcut 04/23/25 History mL(105 mg/1.17 mL x2)subcutaneous syringe (Evenity) buprenorphine 7.5 mcg/hour weekly 1 patch transdermal QWEEK #4 ea 06/28/25 09/17/25 Rx transdermal patch (Butrans) buprenorphine 7.5 mcg/hour weekly 1 patch transdermal QWEEK #4 ea 08/28/25 09/17/25 Rx transdermal patch (Butrans) buprenorphine 7.5 mcg/hour weekly 1 patch transdermal Q7D #4 ea 09/26/25 Rx transdermal patch (Butrans) Allergies Allergy/AdvReac Type Severity Reaction Status Date / Time adhesive tape Allergy unknown Verified 09/17/25 10:28 Influenza Virus Vaccines Allergy unknown Verified 09/17/25 10:28 lincomycin (From Lincocin) Allergy Unknown Verified 09/17/25 10:28 Penicillins Allergy Unknown Verified 09/17/25 10:28 Exam Constitutional Documenting provider has reviewed patient's vital signs: yes Common normals: no apparent distress, oriented x3, healthy appearing, alert and well nourished General appearance: cooperative HENMT Common normals: normocephalic, hearing grossly normal bilaterally and moist oral mucous membranes Head and scalp: normocephalic Eye Common normals: PERRL Pupil: PERRL Neck & C-Spine Common normals: full ROM General: normal visual inspection Other: negative facet loading, negative spurlings, strength 5/5 in BUE Chest Common normals: inspection of chest normal Respiratory Common normals: normal respiratory effort, no retractions and no use of accessory muscles Back & Pelvis Thoracic spine/upper back: ROM limited, pain with ROM and thoracic spinal tenderness T-spine tenderness location: T7, T8, T9 and T10 Lumbar spine/lower back: ROM limited, pain with ROM and straight leg raise negative bilaterally Sacroiliac joints: SI joints normal Other: bilaterally negative eri(patricks), gaenslens, thigh thrust, compression test facet pain noted to T7-10 Extremity Other: no pain with internal and external log roll of right hip Neuro Common normals: oriented x3 Sensorium/orientation: alert Gait (neuro): assistive device used cane Motor exam: no movement abnormalities noted Psych Common normals: mental status grossly normal, thought process normal, cooperative, affect normal, speech normal and activity/motor behavior normal Speech: normal speech Thought process: normal thought process Results Additional Findings Additional findings: If on a controlled substance or opioids, I have checked an [place] report on this patient and there are no aberrancies noted in the prescribing history.??If on a controlled substance or opioid a drug screen was completed and reviewed within the last year, and if there has not been a drug screen completed we ordered one today to monitor higher risk, state monitored pain medication use. As part of providing excellent, safe, comprehensive care, the following was completed at our patient's visit: 1. A medication reconciliation and review to ensure accurate knowledge of current/active medications, including asking our patients to inform us about any vvfq-set-kzqscjg medications or herbal remedies/nutritional supplements/alternative remedies. 2. A review to specifically ensure our patients have had annual screening for screening for depression, screening for tobacco use, and screening for unhealthy alcohol use. For concerning screenings had a discussion with the patient, provided patient education, and recommended follow-up with primary care provider when appropriate. If patient noted with a risk of falling, they received education on strength, gait, and balance training to prevent future risk of falling. Portions of this note may have been carried over from the previous visit and updated as appropriate. Please note this office utilizes paper charting in addition to the electronic medical record. A list of current medications, vitals, and PMH is available there as the clinical staff outside of myself do not have access to [facility] charting during the clinic day operations. As part of providing quality comprehensive care the current medications, vitals, and PMH were reviewed in the paper chart. Assessment and Plan Assessment and Plan (1) Thoracic spondylosis: Assessment and Plan: The patient has had over 3 months of moderate to severe middle back pain with functional impairment and inadequate response to conservative care including NSAIDS (unless there are contraindication such as concurrent blood thinners), multiple oral or topical pain medications, and home exercise program/physical therapy.? Patient has completed >6 weeks of guided home exercise program and/or formal physical therapy program without relief of their symptoms.? The Oswestry Disability Index was completed, and the patient scored a 40%.? The patient noted the following:?? moderate to severe pain impacting ADLs, sitting, standing, walking, sleeping, social life, travel (2) Sacroiliitis: (3) Chronic prescription opiate use: Assessment and Plan: I feel these medications are improving the patient's quality of life and allow them to tolerate activities of daily living as well as participate in recreational activity.? The patient does not report intolerable side effects. The patient is NOT opioid naive and non-pharmacologic and non-opioid treatment has failed to significantly relieve the patient's pain and improve functionality. The patient has a diagnosis that is related to a somatic or visceral pain etiology. ? ?? I reviewed with the patient the potential risks and side effects with the use of? opioid medications including but not limited to respiratory depression,? sedation, and even . Within the last 12 months I have verified the patient has access to naloxone should? these effects occur. The patient was advised to let? their family know they had Naloxone in case they would need to administer? the medication. I advised the patient to avoid the use of any other? sedation substances including alcohol, THC, and benzodiazepines while? taking opioid medications due to the risk of compounding side effects and? detrimental outcomes. within the last 12 months I have reviewed the [employer], pain treatment agreement and urine drug screen.? ?? A drug screen was completed within the last year, and no aberrancies were noted regarding their use of controlled substances. The patient understands they are subject to the terms and conditions of the pain contract that they have signed. ? ?? I have checked an [place] report on this patient today and there are no aberrancies noted in the prescribing history.? Plan pain improved post RFA, continues to endorse chronic pain throughout spine which benefits from butrans 7.5mcg/hr q7days and methocarbamol 500-1000mg bid prn pain/spasms. advised pt that the RFAs may remain in healing phase but at least 50% improvement in a positive sign. with prior hx of significant opioid use due to chronic pain we feel butrans is the safest medication to manage patients chronic pain and dependance on opioid medications. f/u 3 months, sooner if needed
== END 2025-10-17 11:12 | disposition home or self-care (01) ==
LOC: PM 11:12
PROVIDERS: PCP Family Medicine; Visit Provider Nurse Practitioner
DX: M47.814 Spondylosis without myelopathy or radiculopathy, thoracic region (principal); M46.1 Sacroiliitis, not elsewhere classified; Z79.891 Long term (current) use of opiate analgesic
CPT/HCPCS: G0463

== ENCOUNTER 2025-11-12 14:22 | Outpatient (OUT) | payer MEDICARE, SELFPAY ==
--- OUTSIDE RECORDS SUMMARY | 2025-10-29 14:20 | XMS_ITS | Encounter Summary ---
Author Organization [facility] Address [address] [place] [address] Care Team Providers Care Sink Cutter Name Role Phone Bia Cao MD Primary Care Provider [phone] Bia Cao MD Unavailable Reason for Referral * Consultation (Routine) - Pending ReviewSpecialtyDiagnoses / ProceduresReferred By ContactReferred To ContactNeurology Diagnoses Carpal tunnel syndrome of right wrist Procedures [place] OFFICE/OUTPATIENT [facility] 60 MINUTES Bia Cao MD [address] [place] [address] Phone: tel: fax: Raul Marinelli MD [address] [facility] [address] [address] Phone: tel: fax: Referral IDStatusReasonStart DateExpiration DateVisits RequestedVisits [id number] Review Specialty Services Required Reason for Visit * ReasonCommentsUTI Encounter Details DateTypeDepartmentCare Team (Latest Contact Info)Oqwcyfvyrzy36/08/2025 2:20 PM ESTOffice Visit [facility] [address] [place] [phone] Bia Cao MD [address] [facility] [place] [address] Carpal tunnel syndrome of right wrist (Primary Dx); Dysuria Social History Tobacco UseTypesPacks/DayYears UsedDateSmoking Tobacco: NeverSmokeless [...] times a week04/02/2024How often do you attend amish or sabianism services?More than 4 times per year 04/02/2024o you belong to any clubs or organizations such as amish groups, unions, fraternal or athletic groups, or school groups?Yes04/02/2024How often do you attend meetings of the clubs or organizations you belong to?More than 4 times per year04/02/2024re you , , , , never , or living with a partner?Qixnrjp5304/02/2024UDIT-CAnswerDate RecordedQ1: How often do you have a [...] and heating?Not very hard04/02/2024HQ-2AnswerDate RecordedPatient Health Questionnaire-2 Prehe747Fin[facility] [place] of Occup[facility] Health - Occupational Stress QuestionnaireAnswerDate [...] steady place to sleep or slept in [facility] (including now)?No 04/02/2024CommentsUnknownSex and Gender InformationValueDate RecordedSex Assigned at BirthNot on fileLegal LcmOcttft86/15/2023 7:26 PM EDTGender Identity Not on fileSexual OrientationNot on filedocumented as of this encounter Last Filed Vital Signs Vital SignReadingTime TakenCommentsBlood Cymewrmi485/7610/29/2025 2:20 PM EST Ectnl951410/29/2025 2:20 PM ESTTemperature--Respiratory Fcys963212/30/2024 2:20 PM ESTOxygen Dwvwyolats72%10/29/2025 2:20 PM ESTInhaled Oxygen Concentration-- Qoiomz71.9 kg (134 lb 3.2 oz)10/29/2025 2:20 PM FBVHvkrbr227 cm (5' 3 ) 10/29/2025 2:20 PM ESTBody Mass Index23.7710/29/2025 2:20 PM ESTdocumented in this encounter Progress Notes * Bia Cao MD - 10/29/2025 2:20 PM EST Images from the original note were not included. Subjective ?Quick Links Last Note in Specialty Snapshot Edit RFV/CC Edit Screenings Current Meds Patient ID: Angela Ruth is a 80 y.o. female who presents for UTI. HPI History of Present Illness The patient presents for evaluation of a urinary tract infection, carpal tunnel syndrome, and bloodpressure management. She reports no specific preference for antibiotic treatment but mentions that Bactrim has been effective in the past. However, there is a known sulfa allergy. There have been no recent consultations with her urologist, and she is due for kidney function tests, which have not been done in the past year and a half. Carpal tunnel syndrome is currently being managed with a splint from a previous prescription. No recent injections have been administered for this condition. She expresses a desire to consult with Dr. Tolbert regarding her knee but notes that he does not specialize in hand conditions. Previous surgery on her hand was performed by Dr. Tracey. An EMG was conducted before the surgery. She is under the care of Dr. Peter, a blending machine feeder, for blood pressure management. Dr. Hayden has assessed her calcium levels as normal, and she is scheduled to see him in December 2025 for a DEXA scan. She reports no respiratory issues or chest pain. PAST SURGICAL HISTORY: - Hand surgery performed by Dr. Tracey - Previous EMG before hand surgery ?Quick Review Review Full History Edit History Meds - Current Medications[1] --- PMH - Allergic Allergic rhinitis Asthma (HCC) Back pain Basal cell carcinoma Benign essential hypertension Bilateral carpal tunnel syndrome Cervical spondylosis without myelopathy Chronic kidney disease Chronic pain Depression GERD (gastroesophageal reflux disease) Sky's thyroiditis HL (hearing loss) Hyperlipidemia Hypothyroidism Laryngitis Migraine Neuromuscular disorder (HCC) Osteoarthritis Osteopenia Osteoporosis Scoliosis Subdural hematoma (CMS-HCC) Urinary tract infection Vertigo Objective ?Quick Links Add Vitals Timeline (Adult) Labs Imaging Results Review Trend Vitals ?? Avoid pulling in long tables of results. Comment on relevant results to support your medical decision making. BP 134/76 (BP Location: Right arm, Patient Position: Sitting, BP Cuff Size: Adult) Pulse 69 Resp 18 Ht 5' 3 Wt 134 lb 3.2 oz SpO2 96% BMI 23.77 kg/m?? Physical Exam Constitutional: Appearance: Normal appearance. She [...] Judgment normal. Physical Exam Respiratory: Clear to auscultation bilaterally. ?Quick Links Full Problem List Allergy Asthma Cardiology GI Headache Hypertension Thyroid Assessment & Plan Dysuria Orders: POCT Urinalysis dipstick Urine culture (clean catch); Future Urinalysis with reflex microscopic (clean catch); Future sulfamethoxazole-trimethoprim (Bactrim DS) 800-160 MG per tablet; Take 1 tablet by mouth in the morning and 1 tablet before bedtime. Do all this for 5 days. Comprehensive metabolic panel; Future CBC and differential; Future Carpal tunnel syndrome of right wrist Orders: Ambulatory referral to Neurology; Future Assessment & Plan 1. Urinary tract infection: - Urine sample indicates a significant presence of debris. - Kidney function test is due and will be done today. - Prescription for Bactrim has been issued, with the recommendation to take the initial dose in thepresence of others to monitor for any potential allergic reactions. 2. Carpal tunnel syndrome: - Referral to Dr. Marinelli in [place] for further evaluation and potential EMG testing. 3. Blood pressure management: Follow-up: The patient will follow up in 3 months or sooner if she has any problems. [1] albuterol HFA 90 mcg/act inhaler amitriptyline (Elavil) 50 MG tablet Ascorbic Acid (vitamin C) 1000 MG tablet aspirin 81 MG EC tablet atorvastatin (Lipitor) 40 MG tablet buprenorphine (Butrans) 7.5 MCG/HR Calcium Carb-Cholecalciferol 600-20 MG-MCG tablet carvedilol (Coreg) 25 MG tablet cholecalciferol (Vitamin D-3) 25 MCG (1000 UT) tablet CRANBERRY CONCENTRATE PO escitalopram (Lexapro) 20 MG tablet famotidine (Pepcid) 20 MG tablet fenofibrate (Triglide) 160 MG tablet ferrous sulfate 325 (65 Fe) MG tablet fexofenadine (Ally Allergy) 180 MG tablet fluticasone (Flonase) 50 MCG/ACT nasal spray hydrALAZINE (Apresoline) 100 MG tablet hydrALAZINE (Apresoline) 50 MG tablet Lactobacillus (Florajen Women) capsule levothyroxine (Synthroid, Levoxyl) 150 MCG tablet lisinopril-hydroCHLOROthiazide 20-12.5 MG tablet MAGNESIUM PO methocarbamol (Robaxin) 500 MG tablet mirtazapine (Remeron) 15 MG tablet multivitamin with minerals (Centrum) 9-200 mg-mcg tablet split tablet omeprazole (PriLOSEC) [address] capsule oxybutynin XL (Ditropan-XL) 10 MG 24 hr tablet romosozumab (Evenity) 105 MG/1.17ML prefilled syringe Ubrelvy 100 MG tablet zafirlukast (Accolate) 20 MG tablet documented in this encounter Plan of Treatment DateTypeDepartmentCare Team (Latest Contact Info)Yahljigslgg33/09/2026 1:40 PM EDTOffice Visit [facility] [address] [place] [address] Bia Cao MD [address] [place], [place] [phone] 04/08/2026 10:15 AM EDTOffice Visit [facility] [address] [place] [phone] Rodolfo Christianson DPM [address] [place], [place] [phone] NameTypePriorityAssociated DiagnosesOrder ScheduleComprehensive metabolic panel LabRoutine Dysuria Expected: 10/29/2025, Expires: 10/29/2026BC and differentialLabRoutine Dysuria Expected: 10/29/2025 (Approximate), Expires: 10/29/2026NameTypePriority Associated DiagnosesOrder ScheduleAmbulatory referral to NeurologyOutpatient ReferralRoutine Carpal tunnel syndrome of right wrist Expected: 10/29/2025 (Approximate), Expires: 2026documented as of this encounter Goals GoalPatient Goal TypeAssociated ProblemsRecent ProgressPatient-Stated?Author Help patient manage antidepressant medication Care PlanPatient on antidepressant monitoring Bia Munoz, MDdocumented as of this encounter Procedures Procedure NamePriorityDate/TimeAssociated TfgddxyoiIrbgtpiqFXDXZngyznu63/08/2025 2:40 PM EST URINALYSIS ZFIZTTGyaeknu49/08/2025 2:40 PM EST Dysuria CULTURE, URINE, IIEECNCOccoixk21/08/2025 2:40 PM EST Dysuria POCT URINALYSIS EQUXVFSIVupbspi30/08/2025 2:36 PM EST Dysuria documented in this encounter Results * NOTE (10/29/2025 2:40 PM EST)ComponentValueRef RangeTest MethodAnalysis Time Performed AtPathologist SignatureNOTEQUESTComment: This urine was analyzed for the presence of WBC, RBC, bacteria, casts, and other formed elements. Only those elements seen were reported. Specimen (Source)Anatomical Location / LateralityCollection Method / Volume Collection TimeReceived Time10/29/2025 2:40 PM EST10/29/2025 2:40 PM EST Narrative Resulting Agency Comment Performing Organization Information ?Site ID: QPT ?Name: [employer] [facility] ?Address: [address] [place] [address], [address] [place] [phone] ?Director: Angel Noble MD Authorizing ProviderResult TypeResult Dillon Cao MDQUESTFinal Result Performing OrganizationAddressCity/State/ZIP CodePhone Number QUEST * (ABNORMAL) Urinalysis with reflex microscopic (clean catch) (10/29/2025 2:40 PM EST)ComponentValueRef RangeTest MethodAnalysis TimePerformed AtPathologist SignatureCOLORDARK YELLOWYELLOWQUESTAPPEARANCETURBID(A)CLEARQUESTSPECIFIC GRAVITY1.0231.001 - 1.035QUESTPH< OR = 5.0(A)5.0 - 8.0QUESTGLUCOSENEGATIVE NEGATIVEQUESTBILIRUBINNEGATIVENEGATIVEQUESTKETONESTRACE(A)NEGATIVEQUESTOCCULT BLOOD2+(A)NEGATIVEQUESTPROTEIN2+(A)NEGATIVEQUESTNITRITENEGATIVENEGATIVEQUEST LEUKOCYTE ESTERASE3+(A)NEGATIVEQUESTWBCPACKED(A)< OR = 5 /YORSEXKPEIG64-53(A)< OR = 2 /HPFQUESTSQUAMOUS EPITHELIAL MDDKS48-03(A)< OR = 5 /HPFQUESTBACTERIA MANY(A)NONE SEEN /HPFQUESTCALCIUM OXALATE CRYSTALSFEWNONE OR FEW /HPFQUEST HYALINE CAST0-5(A)NONE SEEN /LPFQUESTSpecimen (Source)Anatomical Location / LateralityCollection Method / VolumeCollection TimeReceived TimeUrineUrine specimen obtained by clean catch procedure / Mqkoevt0310/29/2025 2:40 PM EST 10/29/2025 2:40 PM EST Narrative Resulting Agency Comment Performing Organization Information ?Site ID: QPT ?Name: [employer] [facility] ?Address: [address] [place] [phone] ?Director: Angel Noble MD Authorizing ProviderResult TypeResult Dillon Cao MDLAB URINE ORDERABLES Final ResultPerforming OrganizationAddressCity/State/ZIP CodePhone Number [facility] * (ABNORMAL) Urine culture (clean catch) (10/29/2025 2:40 PM EST)ComponentValue Ref RangeTest MethodAnalysis TimePerformed AtPathologist SignatureMICRO NUMBER [id number] QUALITYAdequateQUESTSOURCE: (QUEST)URINEQUESTSTATUSFINAL QUESTISOLATE 1SEE NOTE(A)QUESTComment: Greater than 100,000 CFU/mL of Escherichia coli ?E.coli ?INT BEATRIZ AMOX/CLAVULANATE ? S ?? 8 AMP/SULBACTAM ?I ?? 16 CEFAZOLIN ?R ?? 8 1 CEFEPIME S <=0.12 CEFTAZIDIME S <=0.5 CEFTRIAXONE S <=0.25 CIPROFLOXACIN R >=4 GENTAMICIN R >=16 IMIPENEM S <=0.25 LEVOFLOXACIN R >=8 MEROPENEM S <=0.25 NITROFURANTOIN S <=16 PIP/TAZOBACTAM S <=4 TRIMETHOPRIM/SULFA R >=320 Legend: S = Susceptible ??I = Intermediate R = Resistant ??NS = Not susceptible SDD = Susceptible Dose Dependent * = Not Tested ??NR = Not Reported NN = See Therapy Comments THERAPY COMMENTS ?? Note 1: ?? For uncomplicated UTI caused by E. coli, ?? K. pneumoniae or P. mirabilis: Cefazolin is susceptible if BEATRIZ <32 mcg/mL and predicts ?? susceptible to the oral agents cefaclor, cefdinir, ?? cefpodoxime, cefprozil, cefuroxime, cephalexin ?? and loracarbef. Specimen (Source)Anatomical Location / LateralityCollection Method / Volume Collection TimeReceived TimeUrineUrine specimen obtained by clean catch procedure / Isymqsl4710/29/2025 2:40 PM EST10/29/2025 2:40 PM EST Narrative Resulting Agency Comment Performing Organization Information ?Site ID: QPT ?Name: [employer] [facility] ?Address: [address] [place] [address], [address] [place] [phone] ?Director: Angel Noble MD Authorizing ProviderResult TypeResult StatusBia Cao MDLAB MICROBIOLOGY - GENERAL ORDERABLESFinal ResultPerforming OrganizationAddressCity/State/ZIP Code Phone Number [facility]ST * (ABNORMAL) POCT Urinalysis dipstick (10/29/2025 2:36 PM EST)ComponentValueRef RangeTest MethodAnalysis TimePerformed AtPathologist SignatureColor, UAAmber Clarity, UACloudyGlucose, UANegativeNegative - 2000(110) ++++ mg/dLBilirubin, UANegativeNegative - 4(70) +++ mg/dLKetones, UANegativeNegative - 160(16) ++++ mg/dLSpec Grav, UA1.0151 - 1.03Blood, UAPositiveNegative - 50 Darryl/mcLpH, UA 5.05 - 9Protein, UA3+Negative - 2000(20) ++++ mg/dLUrobilinogen, UA0.20.2 - 12 mg/dLLeukocytes, UA3+Negative - 500+++ Obdulio/mcLNitrite, UANegativeNegative - PositiveSpecimen (Source)Anatomical Location / LateralityCollection Method / VolumeCollection TimeReceived GfrmAeyrx25/08/2025 2:36 PM EST Narrative Authorizing ProviderResult TypeResult StatusBia Cao MDPOINT OF CARE TEST ENTER/EDIT ORDERABLESFinal Result documented in this encounter Visit Diagnoses Diagnosis Carpal tunnel syndrome of right wrist- Primary Dysuria documented in this encounter Additional Health Concerns Active ProblemsNoted DateDiagnosed DatePatient on antidepressant monitoring plan 4AssessmentNoted TimePHQ-9 Depression Total Score: 7012/06/2023 2:00 PM ESTdocumented as of this encounter Care Teams Team MemberRelationshipSpecialtyStart DateEnd Date Bia Cao MD [address] [place] [address] PCP - GeneralFamily Medicine04/29/23 Bia Cao MD [address] [place] [address] PCP - [employer]11/22/21documented as of this encounter
--- OUTSIDE RECORDS SUMMARY | 2025-11-12 14:26 | XMS_ITS | Encounter Summary ---
Author Organization [facility] Address [facility] [place] [address] Care Team Providers Care Validation Engineer Name Role Phone (Hist), No Pcp Primary Care Provider Corey Messina MD Unavailable [phone] Source Comments In the event this information is protected by the Federal Confidentiality of Alcohol and Drug AbusePatient Records regulations: The Federal rules restrict any use of the information to criminally investigate or prosecute any alcohol or drug abuse patient.[facility] Encounter Details DateTypeDepartmentCare Team (Latest Contact Info)Emjijpuwbid31/18/2025 Patient Msg [facility] [address] [place] [phone] Vanesa Morgan, MASOOD.RECORDS ANALYST [address] [facility] [address] [place] [phone] Follow up appointment Social History Tobacco UseTypesPacks/DayYears UsedDateSmoking Tobacco: NeverSmokeless Tobacco: NeverAlcohol UseStandard Drinks/WeekCommentsNo0 (1 standard drink = 0.6 oz pure alcohol)Area Deprivation IndexAnswerDate RecordedNational Score (1-100), lower number is lower ciai9843/14/2024State Score (1-10), lower number is lower risk9 4Data from: https://www.neighborhoodatlas.medicine.[facility] [place].edu/. Last address used for [id number] 4CommentsNoSex and Gender InformationValueDate RecordedSex Assigned at BirthNot on fileLegal Sex Ynqdto6010/23/2012 8:38 AM ESTGender IdentityNot on fileSexual OrientationNot on filedocumented as of this encounter Plan of Treatment Not on file documented as of this encounter Visit Diagnoses Diagnosis Intracranial meningioma (HCC)- Primary Benign neoplasm of cerebral meninges documented in this encounter Care Teams Team MemberRelationshipSpecialtyStart DateEnd Date (Hist), No Pcp PCP - Boryqgw09/14/17 Corey Chacon MD NI Referring TeamNeurosurgery03/24/24documented as of this encounter
--- OUTSIDE RECORDS SUMMARY | 2025-11-12 14:26 | XMS_ITS | Patient Health Record ---
Author Organization [facility] [place] Address [address] [place] [address] Care Team Providers Care Cardiac Technologist Name Role Phone Bia Cao MD Primary Care Provider Unavailabl e Allergies Allergen (clinical drug ingredient) Drug/Non Drug Allergy documented on EMR Reaction Allergy Type Onset Date Status amoxicillin / clavulanate Augmentin Unknown Drug Aller gy ActivelincomycinLincocinUnknownDrug AllergyActiveAdhesiveUnknownAllergyActive aspartameAspartameUnknownDrug AllergyActiveEggs or Egg-derived ProductsUnknown Drug AllergyActiveSubstance with penicillin structure and antibacterial mechanism of action (substance)PenicillinsUnknownDrug AllergyActive Reason For Referral No Information Medications Medication SIG (Take, Route, Frequency, Duration) Notes Start Date End Date Status Alendronate Sodium 35 MG 1 tablet 30 min utes before the first food, beverage or medicine of the day with plain water Orally weekly ActiveZafirlukast 20 MG1 tablet Orally Twice a day ActiveAlbuterol Sulfate HFA 108 (90 Base) MCG/ACT1 puff as needed Inhalation every 4 hrsActive hydrALAZINE HCl 25 MG2 tabs in AM 1 tab in PM Orally DailyActiveVitamin D3 ActiveGabapentin 400 MG1 capsule Orally TIDActiveUbrelvy 100 MG1 tablet may take second dose at least 2 hours after first dose as needed Orally Once a dayActiveFenofibrate 160 MG1 tablet Orally at bedtimeActiveTylenol Extra Mkcgsioq46/01/1900ActiveFamotidine 20 MG1 tablet at bedtime as needed Orally Once a dayActivetiZANidine HCl 4 MG1 to 2 Orally as neededActiveExcedrin Migraine 250-250-65 MG2 tablets Orally Once a day; Duration: 30 day(s)Active oxyBUTYnin Chloride ER 10 MG1 tablet Orally Once a dayActiveCitracal + Dtablet ActiveOmeprazole 40 MG1 capsule Orally Once a day Active multivitamin Multiple Kcipuccq41/01/1900ActiveCarvedilol 25 MG1 tablet with food Orally Twice a dayActiveMeloxicam 15 MG1 tablet Orally DailyActiveAtorvastatin Calcium 40 MG1 tablet Orally at bedtimeActiveLosartan Potassium 100 MG1 tablet Orally DailyActiveAllegra 180 MG1 tablet Swallow whole with water; do not take with fruit juices. Orally Once a day; Duration: 30 day(s)ActiveLexapro 20 MG1 tablet Orally Once a day ActiveLevothyroxine Sodium 150 MCG1 tablet in the morning on an empty stomach Orally Mon thru Sat, skip ayActive Immunizations Vaccine Route Administration Date Status Comme nts Pneumococcal (Pneumovax 23) Unknown 08/31/2003 Administ erevaishnavi 31 Aug 2003 Social History Tobacco Use: Social History Observation Description Date Details (start date - stop date) Never Smoker NA - NA Tobacco Use/Smoking Question Answer Notes Patient is a nonsmoker Alcohol Screen (Audit-C) Question Answer Notes Did you have a drink containing alcohol in the p ast year? No Bksggb1JaualnasgsmxgwKycfymbk Problems Problem Type SNOMED Code ICD Code Onset Dates Problem Status W/U Status Risk Notes Problem Urge incontinence of urine (76996426) Urg e incontinence (N39.41) ActiveconfirmedProblemMidline cystocele (814177376)Midline cystocele (N81.11) ActiveconfirmedProblemFamily history of malignant neoplasm of breast (537204935) Family history of breast cancer in mother (Z80.3)ActiveconfirmedProblemFamily history of malignant neoplasm of breast (025246921)Family history of malignant neoplasm of breast in second degree female relative diagnosed before 50years of age (Z80.3)ActiveconfirmedProblemFamily history of malignant neoplasm of ovary in second degree relative (0565422787639)Family history of malignant neoplasm of ovary in second degree relative (Z80.41)Activeconfirmed Plan Of Treatment No Information Insurance Providers Payer Name Payer Address Payer Phone Subscriber Number Group Number Insured Name Patient Relationship to Insured Coverage Start Date Coverage End Date [employer] MEDICARE [address] [place], [place] [id number] Angela Ruth Self - patient is the insured 2 Medical (General) History Medical History History ICD Code History of generalized anxiety disorder History of thyroid disorderHistory of asthmaHistory of hypertensionHistory of depressionHistory of cancer Basal Cell skin cancerSquamous cell skin cancer History of pancreatitisHistory of arthritisHistory of gallstonesHistory of benign polyps of the large intestineFamily history of breast cancer in mother Z80.3Family history of malignant neoplasm of breast in second degree female relative diagnosed before 50years of ageZ80.3Family history of malignant neoplasm of ovary in second degree zazwqnqqF87.41Surgical History Surgery Date(Month/Year) CTR 2020 Trigger finger release 2019 Previous EGD procedure with Bx 06/2014 History of Colonoscopy with Bx 01/2013 History of rotator cuff repair 2010 Repair torn medial meniscus rt knee x's 2 2006 Left foot tendon reattachment, Left foot Bone graft 2003 Excision bursa lt hip 2000 cholecystectomy 1997 limbar disc surgery 1988 BSO 1984 SANDRINE w/Ovarian Preservation 1982 breast biopsy 1977, 1986, 1988, 19 93 History of appendectomy 1965 History of tonsillectomy 1952 Hemangioma upper back 1945
--- OUTSIDE RECORDS SUMMARY | 2025-11-12 14:26 | XMS_ITS | Clinical Summary ---
Author Organization [facility] Address [address] [place] [id number] Care Team Providers Care Cost Estimator Name Role Phone (Hist), No Pcp Primary Care Provider Corey Messina MD Unavailable [phone] Allergies Active AllergyReactionsCriticalityNoted DateCommentsAdhesiveOther: See Comments 11/04/2016 States causes blisters/even paper tape Amoxicillin-Pot KmtpyshnflyGgmg20/23/2011spartameOther: See CommentsLow 02/12/2017 migraines Clavulanic JibvSypsUiy60/24/3711DqlfackxzXvkzLtm40/24/2017Egg WhiteSwelling 08/14/2011 Says about 1964? and only one arm affected. No rash, hives, or trouble breathing Influenza Virus QnyxjgxbXhpptznoLmshbx61/24/5886EtfaiuaeiiCypsZgg27/14/2016 ErhfrkphkynrKunrrmmuybhIbfu17/24/7616UevlcogbuScmxOgc19/14/2016PenicillinsRash Low11/04/2016 Medications MedicationSigDispense QuantityRefillsLast FilledStart DateEnd DateStatus [...] 20 mg capsule 20 mg once daily.12/02/2016Active ilohuyjhmxbpe-xngcbxotzjxlzneetj-pwqzcqwgncxru (MIDRIN) 65-100-325 mg per capsule 1 capsule [...] mg in the A.M and 200 at bflbruj972Active hydrALAZINE (APRESOLINE) 100 mg tablet take 1 [...] back pain with sciatica 01/27/2018 Encounters DateTypeDepartmentCare ZlzdWewbbutovjf71/18/2025 Patient Msg [facility] [address] [place] [address] 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, [employer]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 Follow up ewlwnhpcuko24/18/2025 Patient Msg Medical Records [address] [place] [address] (Hist), No Pcp Update for Our Medicare Patients Regarding Virtual Iewagr3710/02/2025Travel 10/01/2025 10:42 AM EST - 10/01/2025 11:59 PM ESTHospital Encounter Radiology [address] [place] [address] 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] Discharge Disposition: Home10/01/20257539Hcpznn15/08/2025 [place] [address] Provider, [facility] MRI Screening Questionnaire Completion Oyjrfmzx56/05/2025 Patient Msg Medical Records [address] [place] [address] (Hist), No Pcp Important Notice for Our Medicare Patients Regarding Appointment Schedulingfrom Last 3 Months Social History Tobacco UseTypesPacks/DayYears UsedDateSmoking Tobacco: NeverSmokeless Tobacco: NeverAlcohol UseStandard Drinks/WeekCommentsNo0 (1 standard drink = 0.6 oz pure alcohol)Area Deprivation IndexAnswerDate RecordedNational Score (1-100), lower number is lower adyo350004/04/2024State Score (1-10), lower number is lower risk9 04/04/2024ata from: https://www.neighborhoodatlas.medicine.[facility]/. Last address used for f[address]4CommentsNoSex and Gender InformationValueDate RecordedSex Assigned at BirthNot on fileLegal Sex Ogukmw6510/23/2012 8:38 AM ESTGender IdentityNot on fileSexual OrientationNot on file Last Filed Vital Signs Vital SignReadingTime TakenCommentsBlood Iirwzqdr516/8109/26/2024 1:39 PM EST Sdklm947409/26/2024 1:39 PM VKODcxtgppbbxl47.5 ??C (97.7 ??F)04/04/2024 11:29 AM EDTRespiratory Ribu059104/04/2024 11:29 AM EDTOxygen Bpzysamycc39%09/26/2024 1:39 PM ESTInhaled Oxygen Concentration--Vbzfmd69 kg (147 lb 11.3 oz)09/26/2024 1:39 PM XKIQuecuk921 cm (5' 3 )04/04/2024 11:29 AM EDTBody Mass Index26.17004/04/2024 11:29 AM EDT Plan of Treatment Health MaintenanceDue DateLast DoneCommentsAnxiety Gmuxzwmpx32/08/1963Depression Bbsyxdspz77/08/1963Shingrix Vaccine (2 of 3)DTaP,Tdap,Td Vaccine (1 - Tdap)dvance Directive Ftekeprjku82/01/2025 Medicare Advantage Annual Wellness Visit11/22/2024ovid-19 Vaccine (3 - season)504/, 02/12/2021Influenza Vaccine (#1)2025 09/17/2020, 08/30/2019, 08/29/2018, Additional history existsDiabetes Screening 703/, 01/11/2024, 2023, Additional history exists Pneumococcal Vaccine: 50+Mhpstgrqu49/22/2020, 08/13/2015, 08/31/2003Bone Density OjkizitbwMbmlhtwib39/12/2024Mammogram UnsjouaskYmibikoxwkhg27/02/2024, 02/22/2024, 12/13/2020, Additional history existsRSV AvmslotNfxlwguyt26/05/2024 Procedures Procedure NamePriorityDate/TimeAssociated DiagnosisCommentsMRI BRAIN WO/W IVCON Hrknyrx8410/01/2025 11:48 AM EST Benign neoplasm of meninges [...] cerebellar hemisphere, likely reflecting a small meningioma. Compensation Director: PSCB ?? Transcribe Date/Time: Oct 01 2025 [...] are within normal limits. Procedure Note Provider, [facility] - 10/01/2025 * * *Final Report* * [...] cerebellar hemisphere, likely reflecting a small meningioma. Compensation Director: ALLYSSA Transcribe Date/Time: Oct 01 2025 1:01P Dictated by : TISHA TRUONG MD This examination was interpreted and the report reviewed and electronically signed by: TISHA TRUONG MD on Oct 01 2025 1:08PM EST Authorizing ProviderResult TypeResult StatusTara Morgan [employer] LABORER/DESIGNER.CNPMRI-PAMAFinal Result from Last 3 Months Insurance * Guarantor: Angela Ruth TypeRelation to PatientDate of BirthPhone Billing AddressPersonal/LlmtxlUnes1945 [address] [place] [address] Care Teams Team MemberRelationshipSpecialtyStart DateEnd Date (Hist), No Pcp PCP - Cflnzpe56/14/17 Corey Chacon MD NI Referring TeamNeurosurgery03/24/24
--- OUTSIDE RECORDS SUMMARY | 2025-11-12 14:27 | XMS_ITS | Encounter Summary ---
Author Organization [facility] Address [address] [facility] [place] [address] Care Team Providers Care Credit Products Officer Name Role Phone Bia Cao MD Primary Care Provider [phone] Bia Cao MD Unavailable Encounter Details DateTypeDepartmentCare Team (Latest Contact Info)Eklakjtgkrv11/11/2025Orders Only [facility] [address] [place] [address] Bia Cao MD [address] [place] [address] Acute cystitis without hematuria (Primary Dx) Social History Tobacco UseTypesPacks/DayYears UsedDateSmoking Tobacco: NeverSmokeless [...] times a week04/02/2024How often do you attend scientology or congregational services?More than 4 times per year 04/02/2024o you belong to any clubs or organizations such as scientology groups, unions, fraternal or athletic groups, or school groups?Yes04/02/2024How often do you attend meetings of the clubs or organizations you belong to?More than 4 times per year04/02/2024re you , , , , never , or living with a partner?Jzjlsqv7404/02/2024UDIT-CAnswerDate RecordedQ1: How often do you have a [...] and heating?Not very hard04/02/2024HQ-2AnswerDate RecordedPatient Health Questionnaire-2 Xrvdj102[facility] [place] of [facility] Health - Occupational Stress QuestionnaireAnswerDate [...] InformationValueDate RecordedSex Assigned at BirthNot on fileLegal EuuGwodmb50/15/2023 7:26 PM EDTGender Identity Not on fileSexual OrientationNot on filedocumented as of this encounter Plan of Treatment DateTypeDepartmentCare Team (Latest Contact Info)Sxctkovwwhc76/09/2026 1:40 PM EDTOffice Visit [facility] [address] [place] [phone] Bia Cao MD [address] [place] [address] 04/08/2026 10:15 AM EDTOffice Visit [facility] [address] [place] [address] Rodolfo Christianson, DPAdali [address] [place] [address] documented as of this encounter Goals GoalPatient Goal TypeAssociated ProblemsRecent ProgressPatient-Stated?Author Help patient manage antidepressant medication Care PlanPatient on antidepressant monitoring planBia Deleon, MDdocumented as of this encounter Visit Diagnoses Diagnosis Acute cystitis without hematuria- Primary documented in this encounter Additional Health Concerns Active ProblemsNoted DateDiagnosed DatePatient on antidepressant monitoring plan 4AssessmentNoted TimePHQ-9 Depression Total Score: 7012/06/2023 2:00 PM ESTdocumented as of this encounter Care Teams Team MemberRelationshipSpecialtyStart DateEnd Date Bia Cao MD [address] [place], [place] [id number] PCP - GeneralFamily Medicine04/29/23 Bia Cao MD [address] [facility] [place] [address] PCP - Aetyu11/22/21documented as of this encounter
--- OUTSIDE RECORDS SUMMARY | 2025-11-12 14:27 | XMS_ITS | Encounter Summary ---
Author Organization [facility] Address [address] [facility] [place] [address] Care Team Providers Care Accounts Receivable Representative Name Role Phone Bia Cao MD Primary Care Provider [phone] Bia Cao MD Unavailable Encounter Details DateTypeDepartmentCare Team (Latest Contact Info)Fdeupubzshm07/14/2025Results Follow-Up [facility] [address] [place] [address] Bia Cao MD [address] [facility] [place] [address] CBC auto differential, Comprehensive metabolic panel, Vitamin D 25 hydroxy Total Social History Tobacco UseTypesPacks/DayYears UsedDateSmoking Tobacco: NeverSmokeless [...] times a week04/02/2024How often do you attend episcopalian or anabaptism services?More than 4 times per year 04/02/2024o you belong to any clubs or organizations such as episcopalian groups, unions, fraternal or athletic groups, or school groups?Yes04/02/2024How often do you attend meetings of the clubs or organizations you belong to?More than 4 times per year04/02/2024re you , , , , never , or living with a partner?Gswsatv2704/02/2024UDIT-CAnswerDate RecordedQ1: How often do you have a [...] and heating?Not very hard04/02/2024HQ-2AnswerDate RecordedPatient Health Questionnaire-2 Xnlyd777[facility] of Occupational Health - Occupational Stress QuestionnaireAnswerDate [...] InformationValueDate RecordedSex Assigned at BirthNot on fileLegal WrrLmaxkw84/15/2023 7:26 PM EDTGender Identity Not on fileSexual OrientationNot on filedocumented as of this encounter Miscellaneous Notes * Telephone Encounter - Tamela Meredith - 11/07/2025 2:36 PM EST Pt called back and I read her Dr Cao's note... I explained that nsaids are Motrin and Advil. (Sorry if there were others I didn't mention) She is going to drink more water, refrain from taking nsaids, and she's coming back in on Wednesday to retake the blood test. (It wouldn't let me choose [facility]) * Telephone Encounter - Alyce Marrero MA - 11/07/2025 11:38 AM EST Attempted to call patient and LMOM to call back. * Telephone Encounter - Alyce Marrero MA - 11/07/2025 11:38 AM EST ----- Message from Dr. Bia Cao sent at 11/04/2025 6:16 PM EST ----- Decline in kidney function. Increase water and recheck bmp in 1 week no nsaids ----- Message ----- From: Interface, Incoming Lab Promed Background Sent: 11/02/2025 2:42 PM EST To: Bia Cao MD documented in this encounter Plan of Treatment DateTypeDepartmentCare Team (Latest Contact Info)Qcvvearlqrv72/09/2026 1:40 PM EDTOffice Visit [facility] [address] [facility] [place] [phone] Bia Cao MD [address] [facility] [place] [address] 04/08/2026 10:15 AM EDTOffice Visit [facility] [address] [place] [phone] Rodolfo Christianson, DPAdali [address] [place] [address] documented as of this encounter Goals GoalPatient [...] MemberRelationshipSpecialtyStart DateEnd Date Bia Cao MD [address] [facility] [place] [address] PCP - GeneralFamily Medicine04/29/23 Bia Cao MD [address] [facility] [place] [address] PCP - [employer]11/22/21documented as of this encounter
--- OUTSIDE RECORDS SUMMARY | 2025-11-12 14:27 | XMS_ITS | Clinical Summary ---
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 and only one arm affected. No rash, hives, or trouble breathing ZhqubotnanhgPpeiaytHeyy09/11/2021 fainting Influenza NbnygcorIwylIug12/14/2023 Grown on eggs LincomycinAnaphylaxis,VthpUdxf01/23/2011Lincomycin ChgQwiktox25/10/2022Other UgrruhzyZcbdst91/24/3223AuqrkrhahhqShgpXxp11/14/2023Poultry Meal03/02/2023 Sulfamethoxazole-LokzqnqdexvwVwzhv29/01/2023Wound Dressing AdhesiveRashLow 06/04/2023 Medications MedicationSigDispense QuantityRefillsLast FilledStart DateEnd DateStatus fexofenadine [...] tablet Take 1,000 mg by mouth at gyesrls6904/19/2024ctive hydrALAZINE (Apresoline) 50 MG tablet Take 50 [...] by mouth in the morning 100 capsule 1105Active Additional Information Patient taking differently:40 mg Oral Daily,Morning, Reported on 10/29/2025 mirtazapine (Remeron) 15 MG tablet Indications:Primary insomnia,Major depressive disorder, single episode, in full remissionTake 1 tablet (15 mg) by mouth at bedtime 90 tablet 5Active sulfamethoxazole-trimethoprim (Bactrim DS) 800-160 MG per tablet Indications:DysuriaTake 1 tablet by mouth in the morning and 1 tablet before bedtime. Do all this for 5 days. 10 tablet /Expired nitrofurantoin, macrocrystal-monohydrate, (Macrobid) 100 MG capsule Indications:Acute cystitis without hematuriaTake 1 capsule (100 mg) by mouth in the morning and 1 capsule (100 mg) before bedtime. Do all this for 5 days. 10 capsule /Expired Active Problems ProblemNoted DateDiagnosed DateFamily history of breast cancer in mother 01/23/2025Family history of malignant neoplasm of breast in second degree female relative diagnosed before 50years of age0301/23/2025Family history of malignant neoplasm of ovary in second degree tqfyozyp95/04/2025Midline nixjxydhf98/04/2025 Lung xbmviw7502/15/2024rain venknt8402/15/2024History of ndmcjxi0911/04/2023rimary ojiwfxgi01/14/2023Nocturnal leg gcybyi9506/04/2023ge-related osteoporosis without current pathological uvobnzrm36/14/2023 Assessment & Plan (07/10/2025 2:27 PM EDT): Orders: Vitamin D 25 hydroxy; Future Stage 3b chronic kidney disease (CKD)06/04/2023 Assessment & Plan (07/10/2025 2:27 PM EDT): Orders: CBC and differential; Future Comprehensive metabolic panel; Future Bilateral khablsuxvpngbjq12/11/2023Primary osteoarthritis of right knee 09/17/2021Gastroesophageal reflux disease without fcacsapsozd14/25/39206fz degree AV block06/10/2021Mixed stress and urge urinary vcvsqwpbsmyn91/08/2020 Major depressive disorder, single episode, in full shjfedbrh53/03/2019 Assessment & Plan (07/10/2025 2:27 PM EDT): Orders: CBC and differential; Future Acquired pknizawymszrfu63/08/2019Chronic idiopathic xvxwnonliovm50/19/2019 Assessment & Plan (07/11/2025 9:31 AM EDT): Recommend metamucil Balance rwcrhjr9006/12/2019Bilateral occipital yriawkhch86/11/2019Essential tremor 12/12/2018History of kgqerxgrou77/08/2018Trochanteric bursitis of both hips 11/03/2017Recurrent falls11/01/2017Other specified depressive mlnuezyq74/24/2017 Herniation of lumbar intervertebral disc with bcotcdhqyprot58/16/2017 Degeneration of lumbosacral intervertebral disc08/14/20168953Vaheoo94/05/2016 Assessment & Plan (07/11/2025 9:31 AM EDT): stable History of lumbar akuyhg0012/11/20159200Swixzpyrjtdpjl57/18/2015Essential hypertension 03/13/2013 Overview (06/04/2023): Managed by dr cifuentes Spinal stenosis of lumbar norcnm3008/14/2011 Overview (06/04/2023): Added automatically from request for surgery [id number] Added automatically from request for surgery [id number] Impingement syndrome of right elnreexp69/23/2011 Resolved Problems ProblemNoted DateDiagnosed DateResolved DateMigraine without status migrainosus, not ezobzbpvqjp82Lumbago with sciatica, right side06/04/2023 10/24/2023djustment disorder with guovfai70/ervical spondylosis without qsrxxfhfwo69 Overview (06/04/2023): Added automatically from request for surgery [id number] Age related uubppmsegcbl47isc displacement, demdsw7605/05/2019 10/24/2023 Overview (06/04/2023): Added automatically from request for surgery [id number] 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 Encounters DateTypeDepartmentCare ItwpWhsgvbgltvt53/14/2025Results Follow-Up [facility] [address] [facility] [place] [phone] Bia Cao MD CBC auto differential, Comprehensive metabolic panel, Vitamin D 25 hydroxy Total 11/02/2025External Result Encounter [facility] External Department Unsolicited Bia Cao MD 11/01/2025Orders Only [facility] [address] [facility] [place] [phone] Bia Cao MD Acute cystitis without hematuria (Primary Dx)10/31/2025Results Follow-Up [facility] [address] [facility] [place] [phone] Bia Cao MD POCT Urinalysis dipstick, Urine culture (clean catch), Urinalysis with reflex microscopic (clean catch), NOTE10/29/2025 2:20 PM ESTOffice Visit [facility] [address] [facility] [place] [phone] Bia Cao MD Carpal tunnel syndrome of right wrist (Primary Dx); Zkfqyow0010/29/2025amboo flowsheet [facility] [address] [facility] [place] [phone] Bia Cao MD 10/29/20253414Paqmym40/18/2025 9:15 AM ESTOffice Visit [facility] [address] [place] [address] Rodolfo Christianson DPM Dermatophytosis of nail (Primary Dx); Dystrophic nail; Pain around toenail, right foot5Bamboo flowsheet [facility] [address] [place] [address] Rodolfo Christianson DPM 10/09/20254940Gzmroi29/29/2025[facility] [address] [place] [facility] [place] [address] Bia Cao MD Primary insomnia; Major depressive disorder, single episode, in full jjoackwwn67/25/2025RefSt[facility] [address] [place] [facility] [place] [phone] Olya Hardy NP Primary insomnia; Major depressive disorder, single episode, in full remissionfrom Last 3 Months Immunizations ImmunizationAdministration DatesNext DueInfluenza, High Dose Seasonal, Preservative Free09/17/2020Influenza, Recombinant, injectable, preservative free 10/01/2025Influenza, injectable, quadrivalent, preservative free08/29/2018 Influenza, recombinant, quadrivalent, injectable, preservative free08/30/2019 Influenza, seasonal, injectable, preservative free08/22/2015Moderna SARS-CoV-2 Imnbpikclus93/20/2021,1Pneumococcal Conjugate PCV 13101/13/2020 Pneumococcal Polysaccharide YCNQ2005,08/31/2003RSV, recombinant, protein subunit RSVpreF, adjuvant reconstitu, 120mcg/0.5mL, PF (Arexvy)10/26/2024Td (adult), 5 Lf tetanus toxoid, preservative free, /30/2011Zoster, live 11/22/2009 Family History Medical HistoryRelationNameCommentsArthritisFatherRobert HawkAsthmaFatherRobert HawkCOPDFatherRobert HawkCancerFatherRobert HawkAlcohol abuseFather's Brother 1 Jesús HawkCOPDFather's Brother 2Stewart HawkCancerMotherNellie HawkHypertension MotherNellie HawkCancerMother's Sister 1Zoe KnessCancerMother's Sister 2Maye PughCancerMother's Sister 3Cloe HughesEarly natural deathMother's Sister 4Dana PittengerStrokePaternal GrandfatherHoward HawkDiabetesPaternal GrandmotherFaye HawkHearing lossPaternal GrandmotherFaye HawkStrokePaternal GrandmotherFaye Hawk Drug abuseNeg HxMental illnessNeg HxRelationNameStatusCommentsFatherRobert Hawk DeceasedFather's Brother 1Donald HawkFather's Brother 2Stewart HawkMotherNellie HawkDeceasedMother's Sister 1Zoe KnessMother's Sister 2Maye PughMother's Sister 3Cloe HughesMother's Sister 4Dana PittengerPaternal GrandfatherHoward Keyur Paternal GrandmotherFaye Keyur Social History Tobacco UseTypesPacks/DayYears UsedDateSmoking Tobacco: NeverSmokeless [...] times a week04/02/2024How often do you attend taoism or buddhist services?More than 4 times per year 04/02/2024o you belong to any clubs or organizations such as taoism groups, unions, fraternal or athletic groups, or school groups?Yes04/02/2024How often do you attend meetings of the clubs or organizations you belong to?More than 4 times per year04/02/2024re you , , , , never , or living with a partner?Bsbyllm5204/02/2024UDIT-CAnswerDate RecordedQ1: How often do you have a [...] and heating?Not very hard04/02/2024HQ-2AnswerDate RecordedPatient Health Questionnaire-2 Xzlvc825/15/2024[place] [facility] of Occupational Health - Occupational Stress QuestionnaireAnswerDate [...] steady place to sleep or slept in [facility] (including now)?No 04/02/2024CommentsUnknownSex and Gender InformationValueDate RecordedSex Assigned at BirthNot on fileLegal XdqVvnhwe07/15/2023 7:26 PM EDTGender Identity Not on fileSexual OrientationNot on file Last Filed Vital Signs Vital SignReadingTime TakenCommentsBlood Wotoxepb913/7610/29/2025 2:20 PM EST Ronoi998810/29/2025 2:20 PM LYUEstbhjtdbwn08.3 ??C (97.4 ??F)01/23/2025 4:22 PM ESTRespiratory Odez885012/30/2024 2:20 PM ESTOxygen Eibtrbssqh53%10/29/2025 2:20 PM ESTInhaled Oxygen Concentration--Ppdtnw14.9 kg (134 lb 3.2 oz)10/29/2025 2:20 PM QOGPxoylx105 cm (5' 3 )10/29/2025 2:20 PM ESTBody Mass Index23.7710/29/2025 2:20 PM EST Plan of Treatment DateTypeDepartmentCare Team (Latest Contact Info)Liogqlcwzmf42/09/2026 1:40 PM EDTOffice Visit [facility] [address] [place] [phone] Bia Cao MD [address] [place], [place] [phone] 04/08/2026 10:15 AM EDTOffice Visit [facility] [address] [place] [phone] Rodolfo Christianson DPAdali [address] [place] [address] Health MaintenanceDue DateLast DoneCommentsCOVID-19 Vaccine ( season) 6112/01/2024, 10/26/2024, 03/12/2021, Additional history exists Pneumococcal Vaccine: 65+ TjfivWuqauryeo11/22/2020, 08/13/2015, 08/31/2003 Influenza UntiqdvBovcraphk52/10/2025, 09/17/2020, 08/30/2019, Additional history exists Goals GoalPatient Goal TypeAssociated ProblemsRecent ProgressPatient-Stated?Author Help patient manage antidepressant medication Care PlanPatient on antidepressant monitoring Bia Munoz MD Procedures Procedure NamePriorityDate/TimeAssociated DiagnosisCommentsVITAMIN D 25 HYDROXY MDHMOBdbvdvn05/12/2025 9:07 AM EST COMPREHENSIVE METABOLIC PEHXIQcrgpxy23/12/2025 9:07 AM EST CBC WITH AUTO PSDILGLPXGAQKgebgtp20/12/2025 9:07 AM EST TTVUUnmsykx93/08/2025 2:40 PM EST URINALYSIS HZHGHIBxfbwbo15/08/2025 2:40 PM EST Dysuria CULTURE, URINE, WYEHFPZChmcdci22/08/2025 2:40 PM EST Dysuria POCT URINALYSIS IEMCWCRZPugjhwe05/08/2025 2:36 PM EST Dysuria from Last 3 Months Results * (ABNORMAL) CBC auto differential (11/02/2025 9:07 AM EST)ComponentValueRef RangeTest MethodAnalysis TimePerformed AtPathologist SignatureWHITE BLOOD CELL COUNT, WBC5.94 - 11 10^9/LPROMEDICARED BLOOD CELL COUNT, RBC4.293.8 - 5.2 10^12/KETUFTGWHGZXMABASLOE85.211.7 - 15.5 g/sRPAWULMNZPOXBSAOPQPY90.635 - 47 % PROMEDICAMEAN CELL VOLUME, RJU0608 - 100 fLPROMEDICAMEAN CELL HEMOGLOBIN, MCH 28.527 - 34 pgPROMEDICAMEAN CELL HEMOGLOGIN CONCENTRATION, MCHC33.532 - 36 g/dLPROMEDICARED CELL DISTRIBUTION WIDTH, RDW16.3(H)11.5 - 15 %[facility] PLATELET VGDKT768158 - 450 10^9/LPROMEDICAMEAN PLATELET VOLUME, MPV10.07 - 12 fLPROMEDICA% YFTSKOTDKIN64.0%[facility]% RUIVALJDFAQ83.6%[facility]% MONOCYTES 12.2%[facility]% EOSINOPHILS3.2%[facility]% BASOPHILS1.0%PROMEDICAABSOLUTE NEUTROPHIL2.91.5 - 6.6 10^9/LPROMEDICAABSOLUTE LYMPHOCYTE2.01.0 - 3.5 10^9/L PROMEDICAABSOLUTE MONOCYTE0.70.0 - 0.9 10^9/LPROMEDICAABSOLUTE EOSINOPHIL0.2 0.0 - 0.4 10^9/LPROMEDICAABSOLUTE BASOPHIL0.10.0 - 0.2 10^9/LPROMEDICA DIFFERENTIAL TYPEAUTOMATED DIFFERENTIALPROMEDICAComment: ?? PERFORMED AT [address],[place] [address] Specimen (Source)Anatomical Location / LateralityCollection Method / Volume Collection TimeReceived Time11/02/2025 9:07 AM EST11/02/2025 2:04 PM EST Narrative Authorizing ProviderResult TypeResult StatusBia Cao MDLAB BLOOD ORDERABLES Final ResultPerforming OrganizationAddressCity/State/ZIP CodePhone Number [facility] * Vitamin D 25 hydroxy Total (11/02/2025 9:07 AM EST)ComponentValueRef RangeTest MethodAnalysis TimePerformed AtPathologist SignatureVITAMIN D 25 HYD TOT81.4 30.0 - 100.0 ng/mLPROMEDICAComment: Vitamin D status ? 25 [place] Vitamin D Deficiency <20 ng/mL Insufficiency ? 20-29 ng/mL Sufficiency ? 30-100 ng/mL Toxicity >100 ng/mL NOTE: A pediatric reference range has not been established by the powder and primer canning leader of this kit. The [place] [employer] recommends a Vitamin D level of = or >20ng/mL in infants and children. ?? PERFORMED AT [address],[place] [address] Specimen (Source)Anatomical Location / LateralityCollection Method / Volume Collection TimeReceived Time11/02/2025 9:07 AM EST11/02/2025 2:04 PM EST Narrative Authorizing ProviderResult TypeResult StatusBia VELASCO BLOOD ORDERABLES Final ResultPerforming OrganizationAddressCity/State/ZIP CodePhone Number [facility] * (ABNORMAL) Comprehensive metabolic panel (11/02/2025 9:07 AM EST)Component ValueRef RangeTest MethodAnalysis TimePerformed AtPathologist SignatureSodium 860354 - 146 mmol/LPROMEDICAPotassium, Bld4.43.5 - 5.0 mmol/LPROMEDICAChloride 99076 - 109 mmol/LPROMEDICACarbon Wkxiber7747 - 32 mmol/LPROMEDICAAnion Sci825 - 15 mmol/UDUGUFQLTMCBL37(H)5 - 27 mg/dLPROMEDICACreatinine1.53(H)0.40 - 1.00 mg/dLPROMEDICAComment:METHOD TRACEABLE TO IDMS MXQJPHOWDkowbkq9074 - 99 mg/dL PROMEDICACalcium9.28.5 - 10.5 mg/dLPROMEDICATOTAL PROTEIN6.36.0 - 8.0 g/dL PROMEDICAALBUMIN4.03.2 - 5.3 g/dLPROMEDICAALKALINE MVEMPXVELYJ7581 - 130 U/L PSQFMEXXXOVE37<=41 U/XXUVGUAHARBGI60<=31 U/LPROMEDICATOTAL BILIRUBIN0.40.3 - 1.2 mg/oFCOCOLRNSQEEJN45(L)>=60 ml/min/1.73sq.mPROMEDICAComment: Reported eGFR is based on the CKD-EPI 2020 equation that does not use a race coefficient. ?? PERFORMED AT [facility] [address],[place] [address] Specimen (Source)Anatomical Location / LateralityCollection Method / Volume Collection TimeReceived Time11/02/2025 9:07 AM EST11/02/2025 2:04 PM EST Narrative Authorizing ProviderResult TypeResult StatusBia VELASCO BLOOD ORDERABLES Final ResultPerforming OrganizationAddressCity/State/ZIP CodePhone Number [facility] * NOTE (10/29/2025 2:40 PM EST)ComponentValueRef RangeTest MethodAnalysis Time Performed AtPathologist SignatureNOTEQUESTComment: This urine was analyzed for the presence of WBC, RBC, bacteria, casts, and other formed elements. Only those elements seen were reported. Specimen (Source)Anatomical Location / LateralityCollection Method / Volume Collection TimeReceived Time10/29/2025 2:40 PM EST10/29/2025 2:40 PM EST Narrative Resulting Agency Comment Performing Organization Information ?Site ID: QPT ?Name: [facility] ?Address: [address] [place] [address], [address] [place] [address] ?Director: Angel Noble MD Authorizing ProviderResult TypeResult Dillon Cao MDQUESTFinal Result Performing OrganizationAddressty/State/ZIP CodePhone Number [facility] * (ABNORMAL) Urinalysis with reflex microscopic (clean catch) (10/29/2025 2:40 PM EST)ComponentValueRef RangeTest MethodAnalysis TimePerformed AtPathologist SignatureCOLORDARK YELLOWYELLOWQUESTAPPEARANCETURBID(A)CLEARQUESTSPECIFIC GRAVITY1.0231.001 - 1.035QUESTPH< OR = 5.0(A)5.0 - 8.0QUESTGLUCOSENEGATIVE NEGATIVEQUESTBILIRUBINNEGATIVENEGATIVEQUESTKETONESTRACE(A)NEGATIVEQUESTOCCULT BLOOD2+(A)NEGATIVEQUESTPROTEIN2+(A)NEGATIVEQUESTNITRITENEGATIVENEGATIVEQUEST LEUKOCYTE ESTERASE3+(A)NEGATIVEQUESTWBCPACKED(A)< OR = 5 /VOGPQPVCZRD33-26(A)< OR = 2 /HPFQUESTSQUAMOUS EPITHELIAL EGUMY82-47(A)< OR = 5 /HPFQUESTBACTERIA MANY(A)NONE SEEN /HPFQUESTCALCIUM OXALATE CRYSTALSFEWNONE OR FEW /HPFQUEST HYALINE CAST0-5(A)NONE SEEN /LPFQUESTSpecimen (Source)Anatomical Location / LateralityCollection Method / VolumeCollection TimeReceived TimeUrineUrine specimen obtained by clean catch procedure / Iazvupv5910/29/2025 2:40 PM EST 10/29/2025 2:40 PM EST Narrative Resulting Agency Comment Performing Organization Information ?Site ID: QPT ?Name: [facility] ?Address: [address] [place] [address], [address] [place] [id number] ?Director: Angel Noble MD Authorizing ProviderResult TypeResult Dillon Cao MDLAB URINE ORDERABLES Final ResultPerforming OrganizationAddressty/[facility] CodePhone Number [facility] * (ABNORMAL) Urine culture (clean catch) (10/29/2025 2:40 PM EST)ComponentValue Ref RangeTest MethodAnalysis TimePerformed AtPathologist SignatureMICRO NUMBER [id number] QUALITYAdequateQUESTSOURCE: (QUEST)URINEQUESTSTATUSFINAL QUESTISOLATE 1SEE NOTE(A)QUESTComment: Greater than [...] specimen obtained by clean catch procedure / Llxjpxe3010/29/2025 2:40 PM EST10/29/2025 2:40 PM EST Narrative Resulting Agency Comment Performing Organization Information ?Site ID: QPT ?Name: [facility] ?Address: [address] [place] [address], [address] [place] [address] ?Director: Angel Noble MD Authorizing ProviderResult TypeResult Dillon Cao MDLAB MICROBIOLOGY - GENERAL ORDERABLESFinal ResultPerforming OrganizationAddressCity/State/ZIP Code Phone Number [facility] * (ABNORMAL) POCT Urinalysis dipstick (10/29/2025 2:36 PM EST)ComponentValueRef RangeTest MethodAnalysis TimePerformed AtPathologist SignatureColor, UAAmber Clarity, UACloudyGlucose, UANegativeNegative - 1999(110) ++++ mg/dLBilirubin, UANegativeNegative - 4(70) +++ mg/dLKetones, UANegativeNegative - 160(16) ++++ mg/dLSpec Grav, UA1.0151 - 1.03Blood, UAPositiveNegative - 50 Darryl/mcLpH, UA5.0 5 - 9Protein, UA3+Negative - 2000(20) ++++ mg/dLUrobilinogen, UA0.20.2 - 12 mg/dLLeukocytes, UA3+Negative - 500+++ Obdulio/mcLNitrite, UANegativeNegative - PositiveSpecimen (Source)Anatomical Location / LateralityCollection Method / VolumeCollection TimeReceived NilsGykoi43/08/2025 2:36 PM EST Narrative Authorizing ProviderResult TypeResult Dillon Cao MDPOINT OF CARE TEST ENTER/EDIT ORDERABLESFinal Result from Last 3 Months Additional Health Concerns Active ProblemsNoted DateDiagnosed DatePatient on antidepressant monitoring plan 08/08/2024 Insurance * Guarantor: Angela Ruth TypeRelation to PatientDate of BirthPhone Billing AddressPersonal/CrtjrsXklm[address] [place] [address] Care Teams Team MemberRelationshipSpecialtyStart DateEnd Bia Cao MD [address] [place], [place] [phone] PCP - GeneralFawvly Medicine04/29/23 Bia Cao MD [address] [facility] [place], [place] [phone] PCP - [employer]11/22/21
--- OUTSIDE RECORDS SUMMARY | 2025-11-12 14:27 | XMS_ITS | Encounter Summary ---
Author Organization [facility] Address [address] [facility] [place] [address] Care Team Providers Care Farmworker Poultry Name Role Phone Bia Cao MD Primary Care Provider [phone] Bia Cao MD Unavailable Encounter Details DateTypeDepartmentCare Team (Latest Contact Info)Kbpztgknwgj91/08/2025amboo flowsheet [facility] [address] [place] [address] Bia Cao MD [address] [place] [address] Social History Tobacco UseTypesPacks/DayYears UsedDateSmoking Tobacco: NeverSmokeless [...] times a week04/02/2024How often do you attend rastafarian or islam services?More than 4 times per year 04/02/2024o you belong to any clubs or organizations such as rastafarian groups, unions, fraternal or athletic groups, or school groups?Yes04/02/2024How often do you attend meetings of the clubs or organizations you belong to?More than 4 times per year04/02/2024re you , , , , never , or living with a partner?Huavzsg2404/02/2024UDIT-CAnswerDate RecordedQ1: How often do you have a [...] and heating?Not very hard04/02/2024HQ-2AnswerDate RecordedPatient Health Questionnaire-2 Cavjn274Finva [facility] [place] of Occupational Health - Occupational Stress QuestionnaireAnswerDate [...] 12 months, how many places have you lived?105/12/2024In the last 12 months, was there a time when you did not have a steady place to sleep or slept in ashelter (including now)?No 4CommentsUnknownSex and Gender InformationValueDate RecordedSex Assigned at BirthNot on fileLegal JxcVhutjg51/15/2023 7:26 PM EDTGender Identity Not on fileSexual OrientationNot on filedocumented as of this encounter Plan of Treatment DateTypeDepartmentCare Team (Latest Contact Info)Tfkmxazdfqm43/09/2026 1:40 PM EDTOffice Visit [facility] [address] [place] [phone] Bia Cao MD [address] [place] [address] 04/08/2026 10:15 AM EDTOffice Visit [facility] [address] [place] [address] Rodolfo Christianson DPAdali [address] [facility] [place] [address] documented as of this encounter Goals GoalPatient [...] Team MemberRelationshipSpecialtyStart DateEnd Date Bia Cao MD [address] [facility] [place] [address] PCP - GeneralFamily Medicine04/29/23 Bia Cao MD [address] [place] [address] [facility] - [employer]11/22/21documented as of this encounter
--- OUTSIDE RECORDS SUMMARY | 2025-11-12 14:27 | XMS_ITS | Encounter Summary ---
Author Organization [facility] Address [address] [place] [address] Care Team Providers Care Tamping Machine Operator Name Role Phone Bia Cao MD Primary Care Provider [phone] Bia Cao MD Unavailable Reason for Visit * ReasonOnset UrecZcqbzabcNmtjsyt93/10/2025 Encounter Details DateTypeDepartmentCare Team (Latest Contact Info)Ddssejgykqy57/10/2025Results [facility] [address] [facility] [place] [address] Bia Cao MD [address] [place] [address] POCT Urinalysis dipstick, Urine culture (clean catch), Urinalysis with reflex microscopic (clean catch), NOTE Social History Tobacco UseTypesPacks/DayYears UsedDateSmoking Tobacco: NeverSmokeless [...] times a week04/02/2024How often do you attend latter day or episcopal services?More than 4 times per year 04/02/2024o you belong to any clubs or organizations such as latter day groups, unions, fraternal or athletic groups, or school groups?Yes04/02/2024How often do you attend meetings of the clubs or organizations you belong to?More than 4 times per year04/02/2024re you , , , , never , or living with a partner?Ttdqouj5504/02/2024UDIT-CAnswerDate RecordedQ1: How often do you have a [...] and heating?Not very hard04/02/2024HQ-2AnswerDate RecordedPatient Health Questionnaire-2 Fessk675Finjordan [facility] of Occupational Health - Occupational Stress QuestionnaireAnswerDate [...] InformationValueDate RecordedSex Assigned at BirthNot on fileLegal LeuFrwktf15/15/2023 7:26 PM EDTGender Identity Not on fileSexual OrientationNot on filedocumented as of this encounter Miscellaneous Notes * Telephone Encounter - Alyce Marrero MA - 11/01/2025 4:30 PM EST Attempted to call patient and LMOM to call back. * Telephone Encounter - Alyce Marrero MA - 11/01/2025 4:30 PM EST ----- Message from Dr. Bia Cao sent at 11/01/2025 4:29 PM EST ----- Mymistake urine is not sensitive to bactrim, rx for macrobid sent ----- Message ----- From: Oralia Gordon MA Sent: 11/01/2025 3:43 PM EST To: Bia Cao MD Patient will get these done at [facility]. Orders faxed. ----- Message ----- From: Bia Cao MD Sent: 11/01/2025 3:27 PM EST To: Bia Cao Route Sales Specialist Pool C/w uti sensitive to bactrim, confirm she had her labs drawn yesterday. ( None since 04/2024 ----- Message ----- From: Alyce Marrero MA Sent: 10/29/2025 2:37 PM EST To: Bia Cao MD * Telephone Encounter - Dulce Castellanos - 10/31/2025 4:22 PM EST Pt called back, message relayed * Telephone Encounter - Alyce Marrero MA - 10/31/2025 4:19 PM EST Attempted to call patient and LMOM to call back. * Telephone Encounter - Alyce Marrero MA - 10/31/2025 4:19 PM EST ----- Message from Dr. Bia Cao sent at 10/31/2025 4:14 PM EST ----- Consistent with uti, continue with antibiotic ----- Message ----- From: Alyce Marrero MA Sent: 10/29/2025 2:37 PM EST To: Bia Cao MD documented in this encounter Plan of Treatment DateTypeDepartmentCare Team (Latest Contact Info)Thtyeophycc50/09/2026 1:40 PM EDTOffice Visit [facility] [address] [place] [phone] Bia Cao MD [address] [place], [place] [address] 04/08/2026 10:15 AM EDTOffice Visit [facility] Podiatry [address] [place] [phone] Rodolfo Christianson DPM [address] [place] [address] documented as of this encounter Goals GoalPatient Goal TypeAssociated ProblemsRecent ProgressPatient-Stated?Author Help patient manage antidepressant medication Care PlanPatient on antidepressant monitoring Bia Munoz, MDdocumented as of this encounter Visit Diagnoses Not on filedocumented in this encounter Additional Health Concerns Active ProblemsNoted DateDiagnosed DatePatient on antidepressant monitoring plan 08/08/2024ssessmentNoted TimePHQ-9 Depression Total Score: 7012/06/2023 2:00 PM ESTdocumented as of this encounter Care Teams Team MemberRelationshipSpecialtyStart DateEnd Date Bia Cao MD [address] [facility] [place] [address] [facility] - [facility]23 Bia Cao MD [address] [facility] [place] [address] PCP - [employer]11/22/21documented as of this encounter
--- OUTSIDE RECORDS SUMMARY | 2025-11-12 14:27 | XMS_ITS | Encounter Summary ---
Author Organization [facility] Address [address] [place] [address] Care Team Providers Care Starch And Prosize Mixer Name Role Phone Bia Cao MD Primary Care Provider [phone] Bia Cao MD Unavailable Encounter Details DateTypeDepartmentCare Team (Latest Contact Info)Xaddqnuxuao65/08/2025Travel Social History Tobacco UseTypesPacks/DayYears UsedDateSmoking Tobacco: NeverSmokeless [...] week04/02/2024How often do you attend confucianist or jainism services?More than 4 times per year 04/02/2024o you belong to any clubs or organizations such as confucianist groups, unions, fraternal or athletic groups, or school groups?Yes04/02/2024How often do you attend meetings of the clubs or organizations you belong to?More than 4 times per year04/02/2024re you , , , , never , or living with a partner?Afpyxqb8104/02/2024UDIT-CAnswerDate RecordedQ1: How often do you have a [...] and heating?Not very hard04/02/2024HQ-2AnswerDate RecordedPatient Health Questionnaire-2 Nhmrq997FinWhite [facility] of Occupational Health - Occupational Stress QuestionnaireAnswerDate [...] InformationValueDate RecordedSex Assigned at BirthNot on fileLegal ZzzPbbrjf27/15/2023 7:26 PM EDTGender Identity Not on fileSexual OrientationNot on filedocumented as of this encounter Plan of Treatment DateTypeDepartmentCare Team (Latest Contact Info)Jsloowogctm03/09/2026 1:40 PM EDTOffice Visit [facility] [address] [facility] [place] [phone] Bia Cao MD [address] [facility] [place] [address] 04/08/2026 10:15 AM EDTOffice Visit [facility]ry [address] [place] [phone] Rodolfo Christianson DPAdali [address] [place] [address] documented as of this encounter Goals GoalPatient [...] MemberRelationshipSpecialtyStart DateEnd Date Bia Cao MD [address] [facility] [place] [address] PCP - GeneralFamily Medicine04/29/23 Bia Cao MD [address] [facility] [place] [address] PCP - [employer]11/22/21documented as of this encounter
--- OUTSIDE RECORDS SUMMARY | 2025-11-12 14:27 | XMS_ITS | Clinical Summary ---
Author Organization [facility] Address [address], [address] [place] [address] Care Team Providers Care Hotel Supplies Salesperson Name Role Phone Bia Cao MD Primary Care Provider [phone] Allergies Active AllergyReactionsCriticalityNoted DateCommentsAmoxicillin-Pot Clavulanate 08/14/2011Egg ApwocPtjzyjew13/23/2011 Says about 1964? and only one arm affected. No rash, hives, or trouble breathing Lincomycin Hcl08/14/20114184Yrzej73/15/2018 FLU VACCINE, egg prep Jgsialozkee28/23/2011dhesive Tape08/14/2011 Medications MedicationSigDispense QuantityRefillsLast FilledStart DateEnd DateStatus [...] mouth daily as needed When gets migrainesActive Qkpruhf-Dutcxtvcchvzl-Clqqtuxl (EXCEDRIN MIGRAINE PO) Take by mouthActive predniSONE [...] knee09/17/2021 Midline low back pain with right-sided bizaqxtg09/11/2016DDD (degenerative disc disease), buhmfp5008/14/2011 Overview (08/14/2011): L3-4, L4-5 Lumbar spinal pxtukldt83/23/2011Left Radicular leg pain08/14/2011Impingement syndrome of right ooxxkmgc85/23/2011 Family History Medical HistoryRelationNameCommentsCOPDFatherHeart DiseaseMaternal Grandfather CancerMaternal Grandmotherbreast cancerCancerMotherrectal cancerTuberculosis MotherDiabetesPaternal GrandmotherRelationNameStatusCommentsFatherDeceased Maternal GrandfatherMaternal GrandmotherMotherDeceasedPaternal Grandmother Social History Tobacco UseTypesPacks/DayYears UsedDateSmoking Tobacco: NeverSmokeless Tobacco: Never Tobacco Cessation:Counseling Given: Not Answered Alcohol UseStandard Drinks/WeekCommentsNo0 (1 standard drink = 0.6 oz pure alcohol)CommentsNoSex and Gender InformationValueDate RecordedSex Assigned at BirthNot on fileLegal UjiHzxqha39/10/2013 5:24 PM ESTGender Identity Not on fileSexual OrientationNot on file Last Filed Vital Signs Vital SignReadingTime TakenCommentsBlood Jxnucxqm277/8406 1:15 PM EDT Reuuj2602/25/2018 1:15 PM JGQZxbrncujhta02.4 ??C (97.6 ??F)05/16/2018 12:40 PM EDTRespiratory Owii860812/12/2021 1:21 PM ESTOxygen Cosseshxpr02%05/16/2018 12:40 PM EDTInhaled Oxygen Concentration--Hedzuf44.6 kg (160 lb)04/12/2023 2:44 PM EDT Wqfwvh631.5 cm (5' 2 )04/12/2023 2:44 PM EDTBody Mass Index29.2605 2:44 PM EDT Plan of Treatment Health MaintenanceDue DateLast McpnBdopzetrRzoaax65/08/1955Depression Screen 1957DEXA (modify frequency per FRAX score)2000Shingles vaccine (2 of 3)DTaP/Tdap/Td vaccine (1 - Tdap) Respiratory Syncytial Virus (RSV) or age 60 yrs+ (1 - 1-dose 75+ series)2020Annual Wellness Visit (Medicare Advantage)11/22/2024Flu vaccine (#1)51, 09/17/2020, 08/30/2019, Additional history exists COVID-19 Vaccine ( - 2024- season)504/, 03/11/2021, 8193CgkbxtntyojPruhdqcnkvzm59/16/2018Pneumococcal 50+ years Vaccine Tnaqiighc58/22/2020, 08/13/2015Hepatitis A vaccineAged OutNo longer eligible based [...] Ruth TypeRelation to PatientDate of BirthPhone Billing AddressPersonal/QunkzyYtje1945 [address] [place] [address] * Guarantor: Angela Ruth TypeRelation to PatientDate of BirthPhone Billing AddressPersonal/EdqskbVbrw[address] [facility] [place] [address] Care Teams Team MemberRelationshipSpecialtyStart DateEnd Date Bia Coa MD [address] [place] [address] PCP - General06/16/19
--- OUTSIDE RECORDS SUMMARY | 2025-11-12 14:27 | XMS_ITS | Encounter Summary ---
Author Organization [facility] Address [address] [place] [address] Care Team Providers Care Land Classifier Name Role Phone Bia Cao MD Primary Care Provider [phone] Bia Cao MD Unavailable Encounter Details DateTypeDepartmentCare Team (Latest Contact Info)Oiiqtmdrvid34/12/2025External Result Encounter [facility] Unsolicited Bia Cao MD [address] [place] [address] Social History Tobacco UseTypesPacks/DayYears UsedDateSmoking [...] times a week04/02/2024How often do you attend buddhist or scientologist services?More than 4 times per year 4Do you belong to any clubs or organizations such as buddhist groups, unions, fraternal or athletic groups, or school groups?Yes04/02/2024How often do you attend meetings of the clubs or organizations you belong to?More than 4 times per year4Are you , , , , never , or living with a partner?Uicrshz0204/02/2024UDIT-CAnswerDate RecordedQ1: How often do you have a [...] and heating?Not very hard04/02/2024HQ-2AnswerDate RecordedPatient Health Questionnaire-2 Nfxfr876Fin[facility] of Occupational Health - Occupational Stress QuestionnaireAnswerDate [...] InformationValueDate RecordedSex Assigned at BirthNot on fileLegal AqvMaxscd69/15/2023 7:26 PM EDTGender Identity Not on fileSexual OrientationNot on filedocumented as of this encounter Plan of Treatment DateTypeDepartmentCare Team (Latest Contact Info)Wncgihtfrwl19/09/2026 1:40 PM EDTOffice Visit [facility] [address] [place] [phone] Bia Cao MD [address] [place], [place] [phone] 04/08/2026 10:15 AM EDTOffice Visit [facility] Podiatry [address] [place] [phone] Rodolfo Christianson DPAdali [address] [place] [address] documented as of this encounter Goals GoalPatient Goal TypeAssociated ProblemsRecent ProgressPatient-Stated?Author Help patient manage antidepressant medication Care PlanPatient on antidepressant monitoring Bia Munoz, MDdocumented as of this encounter Procedures Procedure NamePriorityDate/TimeAssociated DiagnosisCommentsCBC WITH AUTO WFBIQSBIBJRQErjitri62/12/2025 9:07 AM EST VITAMIN D 25 HYDROXY AVHYOTcefggr86/12/2025 9:07 AM EST COMPREHENSIVE METABOLIC SDJNMBbdrahj43/12/2025 9:07 AM EST documented in this encounter Results * Vitamin D 25 hydroxy Total (11/02/2025 9:07 AM EST)ComponentValueRef RangeTest MethodAnalysis TimePerformed AtPathologist SignatureVITAMIN D 25 HYD TOT81.4 30.0 - 100.0 ng/mLPROMEDICAComment: Vitamin D status ? 25 [place] Vitamin D Deficiency <20 ng/mL Insufficiency ? 20-29 ng/mL Sufficiency ? 30-100 ng/mL Toxicity >100 ng/mL NOTE: A pediatric reference range has not been established by the marketing professional of this kit. The [place] [employer] recommends a Vitamin D level of = or >20ng/mL in infants and children. ?? PERFORMED AT [facility] [address],[place] [address] Specimen (Source)Anatomical Location / LateralityCollection Method / Volume Collection TimeReceived Time11/02/2025 9:07 AM EST11/02/2025 2:04 PM EST Narrative Authorizing ProviderResult TypeResult StatusBia Cao MDLAB BLOOD ORDERABLES Final ResultPerforming OrganizationAddressCity/State/ZIP CodePhone Number [facility] * (ABNORMAL) Comprehensive metabolic panel (11/02/2025 9:07 AM EST)Component ValueRef RangeTest MethodAnalysis TimePerformed AtPathologist SignatureSodium 142608 - 146 mmol/LPROMEDICAPotassium, Bld4.43.5 - 5.0 mmol/LPROMEDICAChloride 37570 - 109 mmol/LPROMEDICACarbon Idrjqgu6060 - 32 mmol/LPROMEDICAAnion Jnv716 - 15 mmol/GUAPMGSSJHSMT12(H)5 - 27 mg/dLPROMEDICACreatinine1.53(H)0.40 - 1.00 mg/dLPROMEDICAComment:METHOD TRACEABLE TO IDMS WRQFOQPQTeyjqqb3149 - 99 mg/dL [facility]ICACalcium9.28.5 - 10.5 mg/dLPROMEDICATOTAL PROTEIN6.36.0 - 8.0 g/dL PROMEDICAALBUMIN4.03.2 - 5.3 g/dLPROMEDICAALKALINE HZFCSFMZQDS0864 - 130 U/L ULIAZUGSTSGU31<=41 U/VNQGHKTSZWSWX03<=31 U/LPROMEDICATOTAL BILIRUBIN0.40.3 - 1.2 mg/rWQYZBVQEZZUBWG46(L)>=60 ml/min/1.73sq.mPROMEDICAComment: Reported eGFR is based on the CKD-EPI 2020 equation that does not use a race coefficient. ?? PERFORMED AT [facility] [address],[place] [address] Specimen (Source)Anatomical Location / LateralityCollection Method / Volume Collection TimeReceived Time11/02/2025 9:07 AM EST11/02/2025 2:04 PM EST Narrative Authorizing ProviderResult TypeResult StatusBia Cao MDLAB BLOOD ORDERABLES Final ResultPerforming OrganizationAddressCity/State/ZIP CodePhone Number [facility] * (ABNORMAL) CBC auto differential (11/02/2025 9:07 AM EST)ComponentValueRef RangeTest MethodAnalysis TimePerformed AtPathologist SignatureWHITE BLOOD CELL COUNT, WBC5.94 - 11 10^9/LPROMEDICARED BLOOD CELL COUNT, RBC4.293.8 - 5.2 10^12/CPKVIEJKVWEXTHOOQFUF68.211.7 - 15.5 g/pVHISKHCMNWFBSHYWOCVX92.635 - 47 % [facility]OM[facility]ICAMEAN CELL VOLUME, DPG9748 - 100 fLPROMEDICAMEAN CELL HEMOGLOBIN, MCH 28.527 - 34 pgPROMEDICAMEAN CELL HEMOGLOGIN CONCENTRATION, MCHC33.532 - 36 g/dLPROMEDICARED CELL DISTRIBUTION WIDTH, RDW16.3(H)11.5 - 15 %[facility] PLATELET VJGHT692810 - 450 10^9/LPROMEDICAMEAN PLATELET VOLUME, MPV10.07 - 12 fLPROM[facility]ICA% UHBACSLZOKE11.0%[facility]% EILGPWLGTXK08.6%[facility]% MONOCYTES 12.2%[facility]% EOSINOPHILS3.2%[facility]% BASOPHILS1.0%PROMEDICAABSOLUTE NEUTROPHIL2.91.5 - 6.6 10^9/LPROMEDICAABSOLUTE LYMPHOCYTE2.01.0 - 3.5 10^9/L [facility]ICAABSOLUTE MONOCYTE0.70.0 - 0.9 10^9/LPROMEDICAABSOLUTE EOSINOPHIL0.2 0.0 - 0.4 10^9/LPROMEDICAABSOLUTE BASOPHIL0.10.0 - 0.2 10^9/LPROM[facility]ICA DIFFERENTIAL TYPEAUTOMATED DIFFERENTIALPROMEDICAComment: ?? PERFORMED AT [facility] [address],[place] [address] Specimen (Source)Anatomical Location / LateralityCollection Method / Volume Collection TimeReceived Time11/02/2025 9:07 AM EST11/02/2025 2:04 PM EST Narrative Authorizing ProviderResult TypeResult StatusBia Cao MDLAB BLOOD ORDERABLES Final ResultPerforming OrganizationAddressCity/State/ZIP CodePhone Number [facility] documented in this encounter Visit Diagnoses Not on filedocumented in this encounter Additional Health Concerns Active ProblemsNoted DateDiagnosed DatePatient on antidepressant monitoring plan 08/08/2024ssessmentNoted TimePHQ-9 Depression Total Score: 7012/06/2023 2:00 PM ESTdocumented as of this encounter Care Teams Team MemberRelationshipSpecialtyStart DateEnd Date Bia Cao MD [address] [place] [address] PCP - GeneralFamily Medicine04/29/23 Bia Cao MD [address] [place] [address] PCP - [employer]11/22/21documented as of this encounter
--- NOTE | 2025-11-12 15:42 | PM.CN ---
Consult Note: HPI Data of Consult Patient: known to practice within the last 3 years Consult date: 11/12/25 Requesting Physician: Adelfo Hansen MD Primary Care Provider: TRUE DAVIS Consult Narrative Reason for consult: low back, right leg pain Narrative: 80yof who presents for assessment. notes worsening of low back, right leg pain over past few weeks. lumbar imaging shows multilevel moderate to severe stenosis. previously underwent right l4-5, l5-s1 tfesi 6 months ago, which provided >50% relief for >3 months. continues in a series of provider directed home exercises >6 weeks, without benefit. uses butrans patch. cc:: CC: Adelfo Hansen MD Review of Systems ROS Status of ROS 10 or more systems reviewed and unremarkable except as noted in history and below PFSH [facility] Medical History TMJ (dislocation of temporomandibular joint) ?S03.00XA - Dislocation of jaw, unspecified side, initial encounter (ICD-10) Neck pain ?M54.2 - Cervicalgia (ICD-10) Back pain ?M54.9 - Dorsalgia, unspecified (ICD-10) Osteoarthritis ?M19.90 - Unspecified osteoarthritis, unspecified site (ICD-10) H/O psychiatric care ?Z92.89 - Personal history of other medical treatment (ICD-10) Heartburn ?R12 - Heartburn (ICD-10) Acid reflux ?K21.9 - Gastro-esophageal reflux disease without esophagitis (ICD-10) Hypothyroid ?E03.9 - Hypothyroidism, unspecified (ICD-10) Kidney stones ?N20.0 - Calculus of kidney (ICD-10) Asthma ?J45.909 - Unspecified asthma, uncomplicated (ICD-10) High cholesterol ?E78.00 - Pure hypercholesterolemia, unspecified (ICD-10) Hypertension ?I10 - Essential (primary) hypertension (ICD-10) Surgical History H/O shoulder surgery ?Z98.890 - Other specified postprocedural states (ICD-10) H/O excision of hemangioma ?Z98.890 - Other specified postprocedural states (ICD-10) ?Z86.018 - Personal history of other benign neoplasm (ICD-10) H/O basal cell carcinoma excision ?Z98.890 - Other specified postprocedural states (ICD-10) ?Z85.828 - Personal history of other malignant neoplasm of skin (ICD-10) H/O lumbosacral spine surgery ?Z98.890 - Other specified postprocedural states (ICD-10) H/O foot surgery ?Z98.890 - Other specified postprocedural states (ICD-10) H/O hand surgery ?Z98.890 - Other specified postprocedural states (ICD-10) H/O wrist surgery ?Z98.890 - Other specified postprocedural states (ICD-10) History of cholecystectomy ?Z90.49 - Acquired absence of other specified parts of digestive tract (ICD-10) H/O breast biopsy ?Z98.890 - Other specified postprocedural states (ICD-10) History of appendectomy ?Z90.49 - Acquired absence of other specified parts of digestive tract (ICD-10) History of tonsillectomy and adenoidectomy ?Z90.89 - Acquired absence of other organs (ICD-10) Meds Home Medications and Allergies Home Medications ?Medication ?Instructions ?Recorded ?Confirmed ?Type acetaminophen 650 mg 1,300 mg PO Q8H PRN pain 07/07/23 09/17/25 History tablet,extended release (Arthritis Pain Relief (acetaminophen) ER) albuterol 90 mcg/actuation aerosol 90 mcg inhalation .every 4 hours 07/07/23 09/17/25 History inhaler PRN shortness of breath or wheezing ascorbic acid (vitamin C) 500 mg 500 mg PO BID 07/07/23 09/17/25 History tablet,extended release (C Complex) aspirin 81 mg tablet,delayed 81 mg PO DAILY 07/07/23 09/17/25 History release (Adult Aspirin Regimen) atorvastatin 40 mg tablet 40 mg PO DAILY 07/07/23 09/17/25 History calcium carbonate (Calcium 600) 600 mg PO DAILY 07/07/23 09/17/25 History carvedilol 25 mg tablet 25 mg PO BID 07/07/23 09/17/25 History cholecalciferol (vitamin D3) 50 200 mcg PO DAILY 07/07/23 09/17/25 History mcg (2,000 unit) tablet (Vitamin D3) escitalopram oxalate 20 mg tablet 20 mg PO DAILY 07/07/23 09/17/25 History fenofibrate 160 mg tablet 160 mg PO DAILY 07/07/23 09/17/25 History fexofenadine 180 mg tablet 180 mg PO DAILY 07/07/23 09/17/25 History hydralazine 100 mg tablet 100 mg PO TID 07/07/23 09/17/25 History levothyroxine 150 mcg capsule 150 mcg PO DAILY 07/07/23 09/17/25 History lisinopril 20 1 tab PO DAILY 07/07/23 09/17/25 History mg-hydrochlorothiazide 12.5 mg tablet magnesium 250 mg tablet 250 mg PO DAILY 07/07/23 09/17/25 History egqbjwkn-tzn-pcazg acid 0.4 1 tab PO DAILY 07/07/23 09/17/25 History mg-lycopene 300 mcg-lutein 250 mcg tablet (Centrum Silver) omeprazole 40 mg capsule,delayed 40 mg PO DAILY 07/07/23 09/17/25 History release oxybutynin chloride 10 mg 10 mg PO DAILY 07/07/23 09/17/25 History tablet,extended release 24 hr methocarbamol 500 mg tablet See Rx Instructions .Route 04/04/25 09/17/25 Rx .COMPLEX #120 tabs romosozumab-aqqg 210 mg/2.34 mg subcut 04/23/25 History mL(105 mg/1.17 mL x2)subcutaneous syringe (Evenity) buprenorphine 7.5 mcg/hour weekly 1 patch transdermal QWEEK #4 ea 06/28/25 09/17/25 Rx transdermal patch (Butrans) buprenorphine 7.5 mcg/hour weekly 1 patch transdermal QWEEK #4 ea 08/28/25 09/17/25 Rx transdermal patch (Butrans) buprenorphine 7.5 mcg/hour weekly 1 patch transdermal Q7D #4 ea 09/26/25 Rx transdermal patch (Butrans) buprenorphine 7.5 mcg/hour weekly 1 patch transdermal QWEEK #4 ea 10/17/25 Rx transdermal patch (Butrans) methocarbamol 500 mg tablet See Rx Instructions .Route 11/05/25 Rx .COMPLEX #120 tabs acetaminophen 300 mg-codeine 30 mg 1 tab PO BID PRN pain #28 tabs 11/12/25 Rx tablet Allergies Allergy/AdvReac Type Severity Reaction Status Date / Time adhesive tape Allergy unknown Verified 09/17/25 10:28 Influenza Virus Vaccines Allergy unknown Verified 09/17/25 10:28 lincomycin (From Lincocin) Allergy Unknown Verified 09/17/25 10:28 Penicillins Allergy Unknown Verified 09/17/25 10:28 Exam Narrative Exam Narrative: Psych-alert and oriented x 3. Attentive and appropriate, constitutionally normal, displays normal mood and affect per situation. There are no obvious deficits in memory, reasoning, or intellect.? Skin-no obvious rashes, bruising, erythema noted to the patient's area of pain.? Extremities- extremities are warm with minimal edema and palpable pulses. Lumbar-tenderness to palpation noted in the lumbar spine and paraspinal musculature. Pain is elicited with flexion, extension, and lateral rotation of the lumbar spine. Range of motion is diminished with these motions. Facet loading maneuvers are positive.? Strength-noted to be unremarkable with the exception of decreased strength rated at 4 out of 5 in right quadriceps femoris. Sensory-no notable sensory deficits in the bilateral lower extremities to touch or pinprick in all dermatomal distributions with the exception to decreased sensation to the right L4, 5 dermatomal distribution Coordination remains intact.? Gait remains non-antalgic. Assessment and Plan Assessment and Plan (1) Lumbar stenosis with neurogenic claudication: Plan 80yof who presents for assessment. imaging reviewed, as noted. failed conservative measures, as noted. given symptoms and imaging, coupled with previous relief, prudent to attempt right l4-5, l5-s1 tfesi under fluoroscopic guidance. she is in agreement. meds reviewed. will trial t#3 bid prn for 2 weeks. follow up after procedure.
== END 2025-11-12 14:23 | disposition home or self-care (01) ==
LOC: PM 14:22
PROVIDERS: PCP Family Medicine; Visit Provider Anesthesiology
DX: M48.062 Spinal stenosis, lumbar region with neurogenic claudication (principal)
CPT/HCPCS: G0463

== ENCOUNTER 2025-11-19 08:28 | Day surgery (SDC) | payer MEDICARE, SELFPAY ==
--- OUTSIDE RECORDS SUMMARY | 2025-11-19 08:32 | XMS_ITS | Encounter Summary ---
Author Organization [facility] Address [facility] [place] [address] Care Team Providers Care Instrument/Control Technician Name Role Phone (Hist), No Pcp Primary Care Provider Corey Messina MD Unavailable [phone] Source Comments In the event this information is protected by the Federal Confidentiality of Alcohol and Drug AbusePatient Records regulations: The Federal rules restrict any use of the information to criminally investigate or prosecute any alcohol or drug abuse patient.[facility] Encounter Details DateTypeDepartmentCare Team (Latest Contact Info)Ljgimxcqqwb61/18/2025 Patient Msg [facility] [address] [place] [phone] Vanesa Morgan, MASOOD.LAW OFFICE MANAGER [address] [facility] [address] [place] [phone] Follow up appointment Social History Tobacco UseTypesPacks/DayYears UsedDateSmoking Tobacco: NeverSmokeless Tobacco: NeverAlcohol UseStandard Drinks/WeekCommentsNo0 (1 standard drink = 0.6 oz pure alcohol)Area Deprivation IndexAnswerDate RecordedNational Score (1-100), lower number is lower imzt6702/14/2024State Score (1-10), lower number is lower risk9 4Data from: https://www.neighborhoodatlas.medicine.[facility].edu/. Last address used for [address] 4CommentsNoSex and Gender InformationValueDate RecordedSex Assigned at BirthNot on fileLegal Sex Nypriz0010/23/2012 8:38 AM ESTGender IdentityNot on fileSexual OrientationNot on filedocumented as of this encounter Plan of Treatment Not on file documented as of this encounter Visit Diagnoses Diagnosis Intracranial meningioma (HCC)- Primary Benign neoplasm of cerebral meninges documented in this encounter Care Teams Team MemberRelationshipSpecialtyStart DateEnd Date (Hist), No Pcp PCP - Lleptao69/14/17 Corey Chacon MD NI Referring TeamNeurosurgery03/24/24documented as of this encounter
--- OUTSIDE RECORDS SUMMARY | 2025-11-19 08:32 | XMS_ITS | Clinical Summary ---
Author Organization [facility] tem Address [id number] [place] [address] Care Team Providers Care Laboratory Animal Facility Supervisor Name Role Phone Bia Cao MD Primary Care Provider [phone] Allergies Active AllergyReactionsCriticalityNoted YwrwIkcduwceKnxbrpwaOoachb96/14/2016 States causes blisters/even paper tape AspartameOther (See Comments)Low02/12/2017 migraines Amoxicillin-Pot EtgyrqfvyroMfgpVfp16/14/2016 Tolerated cefazolin in June of 2021. Clavulanic NdwdXtngQud71/24/2730HztsspgicMfzxOtg85/24/2017OxaprozinRashLow 11/04/2016Eggshell EbijklnxTqxfnx10/14/2016 States medications grown on/flu shot arm swelled when exposed to egg shell JbrfacgplpdiOkktamyfaveVxzr13/11/2021 fainting Influenza Virus BrkqczzrOoqgxlseEtsxde34/24/2017LincomycinAnaphylaxisHigh 11/04/20168716NswsuaizxbtnRumbdqcfbjaUmtr89/24/2017OtherOther (See Comments) 7093FnourmemtsgUyukZfz87/14/2016 Tolerated cefazolin in June of 2021. Bkloxtl7903/02/2023Sulfa (Sulfonamide Antibiotics)EdybyQlropc39/21/2022 Sulfamethoxazole-OmcvmrbiwcflNnewj30/01/7465Dprddufa-1-En1 Antimigraine Agents High02/19/2025 History of cardiovascular and [...] (six) hours as needed for pain. Active zpyatwc-ybcgqanxensfh-virhbqka (EXCEDRIN MIGRAINE) 250-250-65 mg per tablet Take [...] BP is greater than 170, Reported on 10/26/2025 methocarbamoL (ROBAXIN) 500 mg tablet Take 2 [...] for up to 1 dose. 16 tablet 12035Active amitriptyline (ELAVIL) 50 mg tablet Indications:Migraine without aura and without status migrainosus, not intractable,Psychophysiological insomniaTake 1 tablet (50 mg total) by mouth nightly. 90 tablet 3035Active levothyroxine (SYNTHROID, LEVOTHROID) 150 MCG tablet Indications:Hypothyroidism, unspecified type6 days a week 90 tablet 1125Active levothyroxine (SYNTHROID, LEVOTHROID) 150 MCG tablet Indications:Hypothyroidism, unspecified type6 days a week 90 tablet 1055101/10/2025Discontinued(Reorder) Active Problems ProblemNoted DateDiagnosed TwobNtwccztbfooh73/15/2025Urge plgnkveykkah13/08/2024 Overview (06/13/2025): 08/29/2024: Urge incontinence. Multifactorial including her back issues, constipation, caffeine consumption. Recommended decreasing caffeine as well as addressing constipation with tdmn-rbg-jilgprj agents. If no improvement can add beta [...] methenamine, or a prophylactic antibiotic. Acute kidney qjqwnw0803/02/20232545Pgojmnnvdcm15/11/2023Kidney tfehuq4903/02/2023 Overview (06/13/2025): 06/13/25: CT 02/13/2025 showed a few small stones in the right kidney. We will check with a KUB in January 2026 Acquired cliddwympopnux33/11/2023Cervical spondylosis without myelopathy 04/01/2022 Overview (04/01/2022): Added automatically from request for surgery [id number] Carpal tunnel cgvelnmo97/07/2021Gastroesophageal reflux disease without yonotikvhux36/25/2021ostoperative cerebrospinal fluid leak1Diastolic nixrpwmchdq44/02/2021VH (left ventricular hypertrophy)05/23/2021Hypotension due to drugs05/23/20218646Fnjguhxlfwk68/07/2020Cervical tzkmmsmpofgrk61/07/2020Chronic xqaxjsjmzj24/02/2020Disorder of lewnnp7105/01/2020 Overview (05/01/2020): Added automatically from request for surgery [id number] SOB (shortness of breath)11/06/2019Major depressive disorder, single episode, in full tysyrpuzq04/03/2019Chronic idiopathic wpxtwrlovjie75/19/2019Balance problem 06/12/2019Nocturnal muscle spasm06/12/2019Disc displacement, pdeghp0505/05/2019 Overview (05/05/2019): Added automatically from request for surgery [id number] Spinal stenosis of lumbar wfwtwl6605/05/2019 Overview (05/05/2019): Added automatically from request for surgery [id number] Trapezius muscle spasm05/05/20193219Wicmaan03/03/2019 Overview (03/29/2019): Added automatically from request for surgery [id number] Bilateral occipital ckcvvawgm93/11/2019Psychophysiological dniejbnk66/21/2019 Migraine without aura and without status migrainosus, not cjrewuzxljq82/21/2019 Essential dmoorp0312/12/2018Lumbosacral spondylosis without xdxsmnkdyc72/02/2019 Overview (11/23/2018): Added automatically from request for surgery [id number] Preop cardiovascular exam05/02/2018Chronic pain /08/2018History of cyajiyntsg93/08/2018Spinal stenosis of lumbar region without neurogenic wqkccxdrjyce34/04/2018 Overview (02/23/2018): Added automatically from request for surgery [id number] Chronic left-sided low back pain01/27/2018Bilateral hip pain12/02/2017 Overview (12/02/2017): Added automatically from request for surgery [id number] Trochanteric bursitis of both hips11/03/2017Hip pain, tfcrpszly21/22/2017 Sacrococcygeal disorders, not elsewhere tpgbfquepm33/24/2017Other specified depressive vqgslyvj04/24/2017Other intervertebral disc displacement, lumbar vcmyky2502/12/2017Herniation of lumbar intervertebral disc with radiculopathy 01/14/2017Lumbar herniated disc01/07/2017Lumbar spinal bsyxdbrm71/14/2016 Miktudxo13/14/2016Midline low back pain with right-sided oqgurokb20/11/2016Other locbozeidroovn13/18/2015Essential kwmoaakdcyoq33/22/2013DDD (degenerative disc disease), hqpmiy1508/14/2011 Overview (06/22/2018): Overview: L3-4, L4-5 Impingement syndrome of right kiossedv58/23/2011Radicular leg pain08/14/2011DDD (degenerative disc disease), yeekce8208/14/2011 Overview (06/23/2021): L3-4, L4-5 PONV (postoperative nausea and vomiting)Prolonged emergence from general anesthesiaHyperlipidemia Resolved Problems ProblemNoted DateDiagnosed DateResolved DateSDH (subdural hematoma)01/04/2018 07/01/2021 Encounters DateTypeDepartmentCare CdxfSaoraynpgux30/19/2025Refill [facility] Department of [facility] [address] [phone] Liana Gonzales LPN Hypothyroidism, unspecified type11/02/20250676Osrmdt85/05/2025 1:30 PM ESTInfusion Meggan Harrison [facility] - Medical Oncology [address] [place] [phone] Osteoporosis, unspecified osteoporosis type, unspecified pathological fracture presence (Primary Dx)10/26/2025Results [facility] [address] [address] Jovany Johnson MD Exklhaq0410/25/20259846Jupzbo22/09/2025Results Follow-Up [facility] Adult [facility]ocr[facility]ology, A Department of [facility] [address] [address] Jovany Johnson MD Wtbxbvi1909/25/2025 3:00 PM ESTInfusion Meggan Hunter [facility] - Medical Oncology [address] [place] [phone] Osteoporosis, unspecified osteoporosis type, unspecified pathological fracture presence (Primary Dx)09/24/2025Travelfrom Last 3 Months Immunizations ImmunizationAdministration DatesNext DueCOVID-19, mRNA, LNP-S, PF, 100mcg/0.5mL Dose03/12/2021,02/12/2021Influenza High Dose Preservative Free IM09/17/2020 Influenza, Injectable, quadrivalent (PF)08/29/2018Influenza, Recombinant, Quadrivalent, Injectable, Vidojln2109/17/2020,08/30/2019Pneumococcal Conjugate 13-Ipxcbw1411/12/2020Td (adult), 5 Lf tetanus toxoid, preservative free, adsorbed 08/21/2011 Family History Medical HistoryRelationNameCommentsArthritisFatherRobert [facility] ProblemsFather [place] HawOPDFatherRobert Veterans Affairs [facility] Ar[facility] Healthcare SystemancerFatherRobert HawkNeck ProblemsFatherRobert HawkBreast cancerMaternal Aunt 1Maye PughVision [...] MotherNellie HawkMother with N/VBreast cancerMotherNellie HawkColon cancerMother [place] Neighbors HawkHeart diseaseMotherNellie HawkHypertensionMotherNellie HawkDiabetes Paternal GrandfatherHoward HawkStrokePaternal [...] drink = 0.6 oz pure alcohol)PHQ-2AnswerDate RecordedTotal Rayjn5315ChildcareAnswerDate OocgjqwkBruddyivkOixetdw32/05/2019EmploymentAnswerDate RecordedEmploymentUnknown 04/26/2019Hunger ScreeningAnswerDate RecordedWithin the past 12 months we worried whether our food would run out before we got money to buy more.Never True06/13/2025Within the past 12 months the food we bought just didn't last and we didn't have money to get more.Never True06/13/2025Purpose - LifeAnswerDate RecordedPurpose and direction in fcclVtzhnme14/12/2021CommentsNoSex and Gender InformationValueDate RecordedSex Assigned at MrhktPxvgeb98/01/2021 10:31 PM EDTLegal ObvGmjlgi34/06/2015 11:21 AM EDTGender SuzmbeypYrvcgh56/01/2021 10:31 PM EDTSexual PwaviajnawfYeuuegin33/01/2021 10:31 PM EDT Last Filed Vital Signs Vital SignReadingTime TakenCommentsBlood Mckwlxlh323/43112/27/2024 1:32 PM EST Esrrm482210/26/2025 1:32 PM EVVBtnywerswrp91.8 ??C (98.3 ??F)10/26/2025 1:32 PM ESTRespiratory Qewg786012/27/2024 1:32 PM ESTOxygen Mlcdxiaeco40%10/26/2025 1:32 PM ESTInhaled Oxygen Concentration--Typiji52.9 kg (136 lb 6.4 oz)10/26/2025 1:32 PM KKKPmifcu769.5 cm (5' 2.01 )10/26/2025 1:32 PM ESTBody Mass Index24.94 10/26/2025 1:32 PM EST Plan of Treatment DateTypeDepartmentCare Team (Latest Contact Info)Urjihrfftvt34/06/2026 1:00 PM ESTInfusion [facility] [address] [place] [address] 02/26/2026 1:00 PM EDTOffice Visit [facility] [address] [place] [address] [place] [address] [place] [address] Krishna Kramer MD [facility] [place] [address] Health MaintenanceDue DateLast DoneCommentsZoster (Shingles) Vaccine (2 of 3) DTaP,Tdap and Td Vaccines (1 - Tdap) Depression Hzfqfyciz03Fall Risk Odjikfpck48/ COVID-19 Vaccine ( season)/08/2025, 10/26/2024, 03/12/2021, Additional history existsTobacco Xjxihvcyu43/RSV ( or age 60+ yrs)Hnoqnwqqp30/05/2024Influenza VaccineCompleted 10/01/2025, 09/17/2020, 09/17/2020, Additional history exists Goals GoalPatient Goal TypeAssociated ProblemsRecent ProgressPatient-Stated?Author safe discharge to home Ginna Otto, H[place] Note: Evaluation of progress towards goal: safe transition from hospital to home with support of her friends/neighbors Medical Devices ImplantedTypeAreaManufacturerDevice IdentifierShelf Expiration DateModel / Serial / LotPatch Dura 1x1in Drmtrx-[place] + Clgn Rgnrt Membr Strl - [id number] Implanted:Qty: 1 on 07/03/2021 by [facility]acon [facility]raft[facility]/A: BackSTRYKER [id number] / / [id number] FusionL2-4 Fusion Procedures Procedure NamePriorityDate/TimeAssociated DiagnosisCommentsVITAMIN D 25 HYDROXY Vljejln4511/02/2025 9:07 AM EST Chronic kidney disease, stage 3b ([facility]) Major depressive disorder, single episode, in full remission Age-related osteoporosis without current pathological fracture Dysuria COMPREHENSIVE METABOLIC NXDYXJrzjicp30/12/2025 9:07 AM EST Chronic kidney disease, stage 3b ([facility]) Major depressive disorder, single episode, in full remission Age-related osteoporosis without current pathological fracture Dysuria CBC WITH AUTO TYILSJMAQZPXSdhfbbv25/12/2025 9:07 AM EST Chronic kidney disease, stage 3b ([facility]) Major depressive disorder, single episode, in full remission Age-related osteoporosis without current pathological fracture Dysuria VBYUHIATfnwwhq54/04/2025 9:46 AM EST Osteoporosis, unspecified osteoporosis type, unspecified pathological fracture presence JXVTQOAJlbdqdi65/03/2025 9:18 AM EST Osteoporosis, unspecified osteoporosis type, unspecified pathological fracture presence from Last 3 Months Results * (ABNORMAL) CBC auto differential (11/02/2025 9:07 AM EST)ComponentValueRef RangeTest MethodAnalysis TimePerformed AtPathologist SignatureWBC5.94 - 11 10^L101/03/2025 2:40 PM [facility] LABORATORYRBC Count4.29 3.8 - 5.2 10^L101/03/2025 2:40 PM [facility] Heebswrtbb56.211.7 - 15.5 g/dL11/02/2025 2:40 PM [facility] YIBBMLDRQOHhhrsdetah07.635 - 47 %11/02/2025 2:40 PM [facility] SRCAVFTLNIDRE5147 - 100 fL11/02/2025 2:40 PM [facility] GSVNDHLPUWCMV65.527 - 34 pg11/02/2025 2:40 PM [facility] HXMEGIJSXFBXPR63.532 - 36 g/dL11/02/2025 2:40 PM [facility] BUJVGKZFNPZED71.3(H)11.5 - 15 %11/02/2025 2:40 PM [facility] LABORATORYPlatelet Rwomd984604 - 450 10^9/L101/03/2025 2:40 PM [facility] NUVOKZGEZCGVX53.07 - 12 fL11/02/2025 2:40 PM [facility] LABORATORYNeutrophils %50.0%11/02/2025 2:40 PM [facility] LABORATORYLymphocytes %33.6%11/02/2025 2:40 PM [facility] LABORATORYMonocytes %12.2%11/02/2025 2:40 PM [facility] LABOR[facility]ORYEosinophils %3.2%11/02/2025 2:40 PM [facility] LABORATORYBasophils %1.0%11/02/2025 2:40 PM [facility] LABORATORYNeutrophils Absolute (A)2.91.5 - 6.6 10^9/L 11/02/2025 2:40 PM [facility] LABORATORYLymphocytes Absolute 2.01.0 - 3.5 10^9/L101/03/2025 2:40 PM [facility] Monocytes Absolute0.70.0 - 0.9 10^9/L101/03/2025 2:40 PM [facility] LABORATORYEosinophils Absolute0.20.0 - 0.4 10^9/L101/03/2025 2:40 PM [facility] LABORATORYBasophils Absolute0.10.0 - 0.2 10^9/L 11/02/2025 2:40 PM [facility] LABORATORYDifferential Type AUTOMATED OUDDPLJTTDUQ18/12/2025 2:40 PM [facility] LABORATORYSpecimen (Source)Anatomical Location / LateralityCollection Method / VolumeCollection TimeReceived TimeBloodVenous blood / UnknownVenipuncture / Pknntao6411/02/2025 9:07 AM EST11/02/2025 9:07 AM EST Narrative Authorizing ProviderResult TypeResult StatusBia VELASCO BLOOD ORDERABLES Final ResultPerforming OrganizationAddressCity/State/ZIP CodePhone Number [facility] [address] [place] [address], * Vitamin D 25 hydroxy (11/02/2025 9:07 AM EST)ComponentValueRef RangeTest MethodAnalysis TimePerformed AtPathologist SignatureVITAMIN D 25 HYD TOT81.4 30.0 - 100.0 ng/mL11/02/2025 3:35 PM [facility] Specimen (Source)Anatomical Location / LateralityCollection Method / Volume Collection TimeReceived TimeBloodVenous blood / UnknownVenipuncture / Unknown 11/02/2025 9:07 AM EST11/02/2025 9:07 AM EST Narrative [facility] - 11/02/2025 3:35 PM EST Vitamin D status 25 [place] Vitamin D Deficiency <20 ng/mL Insufficiency ? 20-29 ng/mL Sufficiency ? 30-100 ng/mL Toxicity >100 ng/mL NOTE: A pediatric reference range has not been established by the mobile unit assistant of this kit. The [place] [employer] Pediatrics recommends a Vitamin D level of = or >20ng/mL in infants and children. Authorizing ProviderResult TypeResult StatusBia VELASCO BLOOD ORDERABLES Final ResultPerforming OrganizationAddressCity/State/ZIP CodePhone Number [facility] [address] [place] [address], * (ABNORMAL) Comprehensive metabolic panel (11/02/2025 9:07 AM EST)Component ValueRef RangeTest MethodAnalysis TimePerformed AtPathologist SignatureSODIUM 172008 - 146 mmol/L101/03/2025 2:49 PM [facility] POTASSIUM4.43.5 - 5.0 mmol/L101/03/2025 2:49 PM [facility] RRUXOIJDOYRAOLCWRK60487 - 109 mmol/L101/03/2025 2:49 PM [facility] LABORATORYCARBON MSCOPTA1514 - 32 mmol/L101/03/2025 2:49 PM [facility] LABORATORYANION TQX882 - 15 mmol/L101/03/2025 2:49 PM [facility] LABORATORYBLOOD UREA YTVMXUHV21(H)5 - 27 mg/dL 11/02/2025 2:49 PM [facility] LABORATORYCREATININE1.53(H)0.40 - 1.00 mg/dL11/02/2025 2:49 PM [facility] LABORATORYComment: METHOD TRACEABLE TO IDMS OYRFSFRQLUJDRDT9679 - 99 mg/dL11/02/2025 2:49 PM [facility] LABORATORYCALCIUM9.28.5 - 10.5 mg/dL11/02/2025 2:49 PM [facility] LABORATORYTOTAL PROTEIN6.36.0 - 8.0 g/dL 11/02/2025 2:49 PM [facility] LABORATORYALBUMIN4.03.2 - 5.3 g/dL11/02/2025 2:49 PM [facility] LABORATORYALKALINE JVACOIIRHQT9779 - 130 U/L101/03/2025 2:49 PM [facility] GACEFSEXQXKPP29<=41 U/L101/03/2025 2:49 PM [facility] XVXGYSAKGJLXY14<=31 U/L101/03/2025 2:49 PM [facility] LABORATORYBILIRUBIN,TOTAL0.40.3 - 1.2 mg/dL11/02/2025 2:49 PM [facility]OR[facility]ORYEGFR Non-Race Opsfpmfux85(L)>=60 ml/min/1.73sq.m 11/02/2025 2:49 PM [facility] LABORATORYComment: Reported eGFR is based on the CKD-EPI 2020 equation that does not use a race coefficient. Specimen (Source)Anatomical Location / LateralityCollection Method / Volume Collection TimeReceived TimeBloodVenous blood / UnknownVenipuncture / Unknown 11/02/2025 9:07 AM EST11/02/2025 9:07 AM EST Narrative Authorizing ProviderResult TypeResult StatusBia Cao MDLAB BLOOD ORDERABLES Final ResultPerforming OrganizationAddressCity/State/ZIP CodePhone Number [facility] [address] [place] [address], * Calcium (10/25/2025 9:46 AM EST) Only the most recent of2 resultswithin the time period is included. ComponentValueRef RangeTest MethodAnalysis TimePerformed AtPathologist Signature CALCIUM9.78.5 - 10.5 mg/dL10/25/2025 1:24 PM [facility] LABORATORYSpecimen (Source)Anatomical Location / LateralityCollection Method / VolumeCollection TimeReceived TimeBloodVenipuncture / Rruqygc2610/25/2025 9:46 AM EST10/25/2025 9:46 AM EST Narrative Authorizing ProviderResult TypeResult StatusJovany Johnson MDPRAIRIE VIEW [facility] BLOOD ORDERABLESFinal ResultPerforming OrganizationAddressCity/State/ZIP CodePhone Number [facility] [address] [place] [address], from Last 3 Months Insurance * Guarantor: Angela Ruth TypeRelation to PatientDate of BirthPhone Billing AddressPersonal/GnhveuBdjt1945 [address] [place] [address] Advance Directives TypeDate RecordedPatient RepresentativeExplanationDurable Power of Special Procedures Tech 07/16/2021 3:45 PMLiving Will07/16/2021 3:40 PM * Full Code (Latest Code Status on File) Date ActivatedDate InactivatedComments03/02/2023 4:15 AM03/03/2023 3:57 PM * Full Code Date ActivatedDate InactivatedComments07/03/2021 9:57 AM07/10/2021 6:07 PM * Full Code Date ActivatedDate InactivatedComments01/04/2018 4:32 PM2 6:44 PM * Full Code Date ActivatedDate InactivatedComments01/14/2017 8:37 AM01/15/2017 5:28 PM Care Teams Team MemberRelationshipSpecialtyStart DateEnd Date Bia Cao MD PCP - GeneralFamoly Medicine02/05/23
--- OUTSIDE RECORDS SUMMARY | 2025-11-19 08:32 | XMS_ITS | Encounter Summary ---
Author Organization [facility] Address [address] [place] [address] Care Team Providers Care Compensator Name Role Phone True Cao MD Primary Care Provider [phone] True Cao MD Unavailable Reason for Visit * ReasonOnset XxujWwqiofwrTgdmpvd09/10/2025 Encounter Details DateTypeDepartmentCare Team (Latest Contact Info)Sklpbmgwjjw81/10/2025Results Follow-Up [facility] [address] [facility] [address] [facility] [place] [address] True Cao MD [address] [place], [place] [phone] POCT Urinalysis dipstick, Urine culture (clean catch), Urinalysis with reflex microscopic (clean catch), Additional followed-up results: 3 Social History Tobacco UseTypesPacks/DayYears UsedDateSmoking Tobacco: NeverSmokeless [...] times a week04/02/2024How often do you attend synagogue or worship services?More than 4 times per year 05/12/2024Do you belong to any clubs or organizations such as synagogue groups, unions, fraternal or athletic groups, or school groups?Yes04/02/2024How often do you attend meetings of the clubs or organizations you belong to?More than 4 times per year04/02/2024re you , , , , never , or living with a partner?Lclzofl6404/02/2024UDIT-CAnswerDate RecordedQ1: How often do you have a [...] and heating?Not very hard04/02/2024HQ-2AnswerDate RecordedPatient Health Questionnaire-2 Jtuwg268Finuintah [facility] [place] of Occupational Health - Occupational Stress QuestionnaireAnswerDate [...] InformationValueDate RecordedSex Assigned at BirthNot on fileLegal CrjCbuses65/15/2023 7:26 PM EDTGender Identity Not on fileSexual OrientationNot on filedocumented as of this encounter Miscellaneous Notes * Telephone Encounter - Shabana Schneider MA - 11/16/2025 10:47 AM EST LMOM letting pt know * Telephone Encounter - Shabana Schneider MA - 11/16/2025 10:47 AM EST ----- Message from Dr. True Cao sent at 11/15/2025 12:36 PM EST ----- Improve renal function. Decline in blood count recheck labs in 4 weeks. ----- Message ----- From: Alyce Marrero MA Sent: 10/29/2025 2:37 PM EST To: True Cao MD * Addendum Note - True Cao MD - 11/15/2025 12:36 PM ESTAddended by: TRUE CAO on: 11/15/2025 12:36 PM Modules accepted: Orders * Telephone Encounter - Alyce Marrero MA - 11/01/2025 4:30 PM EST Attempted to call patient and LMOM to call back. * Telephone Encounter - Alyce Marrero MA - 11/01/2025 4:30 PM EST ----- Message from Dr. True Cao sent at 11/01/2025 4:29 PM EST ----- Mymistake urine is not sensitive to bactrim, rx for macrobid sent ----- Message ----- From: Oralia Gordon MA Sent: 11/01/2025 3:43 PM EST To: True Cao MD Patient will get these done at [facility]. Orders faxed. ----- Message ----- From: True Cao MD Sent: 11/01/2025 3:27 PM EST To: True Cao Grocery Checker Pool C/w uti sensitive to bactrim, confirm she had her labs drawn yesterday. ( None since 04/2024 ----- Message ----- From: Alyce Marrero MA Sent: 10/29/2025 2:37 PM EST To: True Cao MD * Telephone Encounter - Dulce Castellanos - 10/31/2025 4:22 PM EST Pt called back, message relayed * Telephone Encounter - Alyce Marrero MA - 10/31/2025 4:19 PM EST Attempted to call patient and LMOM to call back. * Telephone Encounter - Alyce Marrero MA - 10/31/2025 4:19 PM EST ----- Message from Dr. True Cao sent at 10/31/2025 4:14 PM EST ----- Consistent with uti, continue with antibiotic ----- Message ----- From: Alyce Marrero MA Sent: 10/29/2025 2:37 PM EST To: True Cao MD documented in this encounter Plan of Treatment DateTypeDepartmentCare Team (Latest Contact Info)Sozmehwjvlh08/09/2026 1:40 PM EDTOffice Visit [facility] [address] [place] [phone] True Cao MD [address] [place], [place] [phone] 04/08/2026 10:15 AM EDTOffice Visit [facility] [address] [place] [phone] Rodolfo Christianson DPM [address] [place], [place] [phone] NameTypePriorityAssociated DiagnosesOrder ScheduleCBC and differentialLabRoutine Anemia, unspecified type Renal insufficiency Expected: 11/15/2025 (Approximate), Expires: 11/15/2026omprehensive metabolic panelLabRoutine Anemia, unspecified type Renal insufficiency Expected: 11/15/2025, Expires: 11/15/2026documented as of this encounter Goals GoalPatient Goal TypeAssociated ProblemsRecent ProgressPatient-Stated?Author Help patient manage antidepressant medication Care PlanPatient on antidepressant monitoring planTrue Deleon, MDdocumented as of this encounter Visit Diagnoses Diagnosis Anemia, unspecified type- Primary Renal insufficiency Unspecified disorder of kidney and ureter documented in this encounter Additional Health Concerns Active ProblemsNoted DateDiagnosed DatePatient on antidepressant monitoring plan 08/08/2024ssessmentNoted TimePHQ-9 Depression Total Score: 7012/06/2023 2:00 PM ESTdocumented as of this encounter Care Teams Team MemberRelationshipSpecialtyStart DateEnd Date True Cao MD [address] [place] [address] PCP - GeneralFamily Medicine04/29/23 True Cao MD [address] [place] [address] PCP - [employer]11/22/21documented as of this encounter
--- OUTSIDE RECORDS SUMMARY | 2025-11-19 08:32 | XMS_ITS | Clinical Summary ---
Author Organization [facility] Address [address] [place] [address] Care Team Providers Care Relocation Counselor Name Role Phone Bia Cao MD Primary Care Provider [phone] Bia Cao MD Unavailable Allergies Active AllergyReactionsCriticalityNoted DateCommentsAspartameUnknownLow 02/12/2017 migraines Amoxicillin-Pot DqucwlgqtjhQxziSkv95/14/2023Clavulanic QdtxMejsWxj39/24/2017 QxhckgbyxKyjyAjw45/24/2017Egg Protein-Containing Drug ProductsSwelling,Unknown 08/14/2011 Says about 1964? and only one arm affected. 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 cyrobhhf65/04/2025Midline mbeflcmnu05/04/2025 Lung xkutab6702/15/2024rain nndfch0402/15/2024History of mjjgnin5311/04/2023rimary umqvasfb17/14/2023Nocturnal leg mdfpgm4206/04/2023ge-related osteoporosis without current pathological osesoqeg62/14/2023 Assessment & Plan (07/10/2025 2:27 PM EDT): Orders: Vitamin D 25 hydroxy; Future Stage 3b chronic kidney disease (CKD)06/04/2023 Assessment & Plan (07/10/2025 2:27 PM EDT): Orders: CBC and differential; Future Comprehensive metabolic panel; Future Bilateral yelvbptkciqjvud73/11/2023Primary osteoarthritis of right knee 09/17/2021Gastroesophageal reflux disease without drgrilxuazv41/25/21696yu degree AV block06/10/2021Mixed stress and urge urinary ovqqjbaiztwe87/08/2020 Major depressive disorder, single episode, in full dickwsuni19/03/2019 Assessment & Plan (07/10/2025 2:27 PM EDT): Orders: CBC and differential; Future Acquired qqdscnehjzhuvp52/08/2019Chronic idiopathic kpwnurxijzde14/19/2019 Assessment & Plan (07/11/2025 9:31 AM EDT): Recommend metamucil Balance swfvgvh4206/12/2019Bilateral occipital sjmlqrjeb05/11/2019Essential tremor 12/12/2018History of bfkphiabta20/08/2018Trochanteric bursitis of both hips 11/03/2017Recurrent falls11/01/2017Other specified depressive /24/2017 Herniation of lumbar intervertebral disc with lrepvyhdosorw06/16/2017 Degeneration of lumbosacral intervertebral disc08/14/20164591Dpouxh37/05/2016 Assessment & Plan (07/11/2025 9:31 AM EDT): stable History of lumbar aweueh3212/11/20158121Nagetwedwvyfmq85/18/2015Essential hypertension 03/13/2013 Overview (06/04/2023): Managed by dr cifuentes Spinal stenosis of lumbar gloqad0208/14/2011 Overview (06/04/2023): Added automatically from request for surgery [id number] Added automatically from request for surgery [id number] Impingement syndrome of right veraplpo01/23/2011 Resolved Problems ProblemNoted DateDiagnosed DateResolved DateMigraine without status migrainosus, not tiwdjqxybro88Lumbago with sciatica, right side06/04/2023 10/24/2023djustment disorder with vsioxbf06/ervical spondylosis without eqvlurduci73 Overview (06/04/2023): Added automatically from request for surgery [id number] Age related jcjbhugkiiyq25isc displacement, dwocic3105/05/2019 10/24/2023 Overview (06/04/2023): Added automatically from request for surgery [id number] 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 Encounters DateTypeDepartmentCare DnqnTzzatodtfjt22/14/2025Results Follow-Up [facility] [address] [facility] [place] [phone] Bia Cao MD CBC auto differential, Comprehensive metabolic panel, Vitamin D 25 hydroxy Total 11/02/2025External Result Encounter [facility] External Department Unsolicited Bia Cao MD 11/01/2025Orders Only [place] [address] [facility] [place] [phone] Bia Cao MD Acute cystitis without hematuria (Primary Dx)10/31/2025Results Follow-Up [place] [address] [facility] [place] [phone] Bia Cao MD POCT Urinalysis dipstick, Urine culture (clean catch), Urinalysis with reflex microscopic (clean catch), Additional followed-up results: 2:20 PM ESTOffice Visit [place] [address] [facility] [place] [phone] Bia Cao MD Carpal tunnel syndrome of right wrist (Primary Dx); Fqsygan09/08/2025Bamboo flowsheet [facility] [address] [facility] [place] [phone] Bia Cao MD 10/29/20256942Rpybre53/18/2025 9:15 AM ESTOffice Visit [facility] [address] [place] [address] Rodolfo Christianson DPM Dermatophytosis of nail (Primary Dx); Dystrophic nail; Pain around toenail, right foot5Bamboo flowsheet [facility] [address] [place] [address] Rodolfo Christianson DPM 10/09/20254315Mjnukk24/29/2025RefFormerly [facility] [address] [place] [phone] Bia Cao MD Primary insomnia; Major depressive disorder, single episode, in full czdzozlnf16/25/2025RefFormerly [facility] [address] [place] [phone] Olya Hardy NP Primary insomnia; Major depressive disorder, single episode, in full remissionfrom Last 3 Months Immunizations ImmunizationAdministration DatesNext DueInfluenza, High Dose Seasonal, Preservative Free09/17/2020Influenza, Recombinant, injectable, preservative free 10/01/2025Influenza, injectable, quadrivalent, preservative free08/29/2018 Influenza, recombinant, quadrivalent, injectable, preservative free08/30/2019 Influenza, seasonal, injectable, preservative free08/22/2015Moderna SARS-CoV-2 Wuqrexthhan35/20/2021,1Pneumococcal Conjugate PCV Pneumococcal Polysaccharide LRPQ2511,08/31/2003RSV, recombinant, protein subunit RSVpreF, adjuvant reconstitu, 120mcg/0.5mL, PF (Arexvy)10/26/2024Td (adult), 5 Lf tetanus toxoid, preservative free, ugtmmpve09/30/2011Zoster, live 11/22/2009 Family History Medical HistoryRelationNameCommentsArthritisFatherRobert HawkAsthmaFatherRobert HawkCOPDFatherRobert HawkCancerFatherRobert HawkAlcohol abuseFather's Brother 1 Jesús HawkCOPDFather's Brother 2Stewart HawkCancerMotherNellie HawkHypertension MotherNellie HawkCancerMother's Sister 1Zoe KnessCancerMother's Sister 2Maye PughCancerMother's Sister 3Cloe HughesEarly natural deathMother's Sister 4Dana PittengerStrokePaternal GrandfatherHoward HawkDiabetesPaternal GrandmotherFaye HawkHearing lossPaternal GrandmotherFaye HawkStrokePaternal GrandmotherFaye Hawrebekah Drug abuseNeg HxMental illnessNeg HxRelationNameStatusCommentsFatherRobert Hawk DeceasedFather's Brother 1Donald HawkFather's Brother 2Stewart HawkMotherNellie HawkDeceasedMother's Sister 1Zoe KnessMother's Sister 2Maye PughMother's Sister 3Cloe HughesMother's Sister 4Dana PittengerPaternal GrandfatherHoward Hawk Paternal GrandmotherFaye Hawrebekah Social History Tobacco UseTypesPacks/DayYears UsedDateSmoking Tobacco: NeverSmokeless [...] times a week04/02/2024How often do you attend hinduism or hinduism services?More than 4 times per year 04/02/2024o you belong to any clubs or organizations such as hinduism groups, unions, fraternal or athletic groups, or school groups?Yes04/02/2024How often do you attend meetings of the clubs or organizations you belong to?More than 4 times per year04/02/2024re you , , , , never , or living with a partner?Pclfygt0604/02/2024UDIT-CAnswerDate RecordedQ1: How often do you have a [...] and heating?Not very hard04/02/2024HQ-2AnswerDate RecordedPatient Health Questionnaire-2 Sokll987Finsteward [facility] care system [place] of Occupational Health - Occupational Stress QuestionnaireAnswerDate [...] steady place to sleep or slept in [place] (including now)?No 04/02/2024CommentsUnknownSex and Gender InformationValueDate RecordedSex Assigned at BirthNot on fileLegal IvyDvkiyq73/15/2023 7:26 PM EDTGender Identity Not on fileSexual OrientationNot on file Last Filed Vital Signs Vital SignReadingTime TakenCommentsBlood Espinwlt719/7610/29/2025 2:20 PM EST Qhlqq855810/29/2025 2:20 PM BXTRxhrprqohzq56.3 ??C (97.4 ??F)01/23/2025 4:22 PM ESTRespiratory Thrd492712/30/2024 2:20 PM ESTOxygen Kdiertyysj22%10/29/2025 2:20 PM ESTInhaled Oxygen Concentration--Qpghzj01.9 kg (134 lb 3.2 oz)10/29/2025 2:20 PM UIEBtjrqk496 cm (5' 3 )10/29/2025 2:20 PM ESTBody Mass Index23.7710/29/2025 2:20 PM EST Plan of Treatment DateTypeDepartmentCare Team (Latest Contact Info)Zttnnwyxerk29/09/2026 1:40 PM EDTOffice Visit [facility] [address] [place] [phone] Bia Cao MD [address] [place], [place] [phone] 04/08/2026 10:15 AM EDTOffice Visit [facility] [address] [place] [phone] Rodolfo Christianson DPAdali [address] [place] [address] Health MaintenanceDue DateLast DoneCommentsPneumococcal Vaccine: 65+ Years Xjgknarja38/22/2020, 08/13/2015, 08/31/2003Influenza ZpeiiqcSldzccfvj20/10/2025, 09/17/2020, 08/30/2019, Additional history exists Goals GoalPatient Goal TypeAssociated ProblemsRecent ProgressPatient-Stated?Author Help patient manage antidepressant medication Care PlanPatient on antidepressant monitoring Bia Munoz MD Procedures Procedure NamePriorityDate/TimeAssociated DiagnosisCommentsCBC (INCLUDES DIFF/PLT)Fbfbyez2511/13/2025 11:27 AM EST Dysuria COMPREHENSIVE METABOLIC CJSTXXecmfoy35/23/2025 11:27 AM EST Dysuria VITAMIN D 25 HYDROXY PNNXFTepwyrq37/12/2025 9:07 AM EST COMPREHENSIVE METABOLIC EDOEMAblxphg08/12/2025 9:07 AM EST CBC WITH AUTO CIHPZFSIEGDHOljrtnq33/12/2025 9:07 AM EST MHJYFpiofml87/08/2025 2:40 PM EST URINALYSIS OHISDHJamcuji79/08/2025 2:40 PM EST Dysuria CULTURE, URINE, ZQFUFQCBfejveh73/08/2025 2:40 PM EST Dysuria POCT URINALYSIS UCGEGMTQPtvjdwl15/08/2025 2:36 PM EST Dysuria from Last 3 Months Results * (ABNORMAL) CBC and differential (11/13/2025 11:27 AM EST)ComponentValueRef RangeTest MethodAnalysis TimePerformed AtPathologist SignatureWHITE BLOOD CELL COUNT4.63.8 - 10.8 Thousand/uLQUESTRED BLOOD CELL COUNT3.873.80 - 5.10 Million/dPZXTMLZNGOYWFBVJ36.8(L)11.7 - 15.5 g/sHLQMZUGERLYYUXMQ99.2(L)35.9 - 46.0 %NJCWXWDH48.081.4 - 101.7 zKQXUICDPH97.927.0 - 33.0 rfSRLFDTEFS53.7(L) 31.6 - 35.4 g/jEUKCLMPPO47.911.0 - 15.0 %QUESTPLATELET ZGFWG582889 - 400 Thousand/uFCXLFHWLH48.17.5 - 12.5 fLQUESTABSOLUTE NEUTROPHILS2,0651,500 - 7,800 cells/uLQUESTABSOLUTE LYMPHOCYTES1,919545 - 3,900 cells/uLQUESTABSOLUTE TXZYFDSVT189540 - 950 cells/uLQUESTABSOLUTE OSGXGVWLDPM20688 - 500 cells/uL QUESTABSOLUTE IOQOWJHHT372 - 200 cells/cNNDYKHYYNPZVHKEKX53.9%QUESTLYMPHOCYTES 34.5%FFHSDBSIVYPEAY94.0%QUESTEOSINOPHILS3.3%QUESTBASOPHILS1.3%QUESTSpecimen (Source)Anatomical Location / LateralityCollection Method / VolumeCollection TimeReceived TimeBloodVenous blood specimen / Xfnlyfg3111/13/2025 11:27 AM EST 11/13/2025 11:28 AM EST Narrative Resulting Agency Comment Performing Organization Information ?Site ID: QPT ?Name: [facility] ?Address: [address] [place] [address], [address] [place] [phone] ?Director: Angel Noble MD Authorizing ProviderResult TypeResult StatusBia Cao MDLAB BLOOD ORDERABLES Final ResultPerforming OrganizationAddressCity/State/ZIP CodePhone Number [facility] * (ABNORMAL) Comprehensive metabolic panel (11/13/2025 11:27 AM EST) Only the most recent of2 resultswithin the time period is included. ComponentValueRef RangeTest MethodAnalysis TimePerformed AtPathologist Signature Exvkmlv159(H)65 - 99 mg/dLQUESTComment: ? Fasting reference interval For someone without known diabetes, a glucose value between 100 and 125 mg/dL is consistent with prediabetes and should be confirmed with a follow-up test. BUN45(H)7 - 25 mg/dLQUESTCreatinine0.97(H)0.60 - 0.95 mg/tIAXGBYYOHP02(L)> OR = 60 mL/min/1.05p3SBOCGYNG/CREATININE RATIO46(H)6 - 22 (calc)PSXDQQvcxaq009636 - 146 mmol/LQUESTPotassium, Bld4.63.5 - 5.3 mmol/IHAZBSYvelyawa73414 - 110 mmol/L QUESTCarbon Glqzmqz0471 - 32 mmol/LQUESTCalcium8.98.6 - 10.4 mg/dLQUESTPROTEIN, TOTAL5.9(L)6.1 - 8.1 g/dLQUESTALBUMIN3.83.6 - 5.1 g/dLQUESTGLOBULIN2.11.9 - 3.7 g/dL (calc)QUESTALBUMIN/GLOBULIN RATIO1.81.0 - 2.5 (calc)QUESTBILIRUBIN, TOTAL 0.40.2 - 1.2 mg/dLQUESTALKALINE TXSVMZXBLDY5361 - 153 U/GFBZQZTDO3752 - 35 U/L BYQZIYTX706 - 29 U/LQUESTSpecimen (Source)Anatomical Location / Laterality Collection Method / VolumeCollection TimeReceived TimeBloodVenous blood specimen / Acshcju1411/13/2025 11:27 AM EST11/13/2025 11:28 AM EST Narrative Resulting Agency Comment Performing Organization Information ?Site ID: QPT ?Name: [facility] ?Address: [address] [place] [address], [address] [place] [phone] ?Director: Angel Noble MD Authorizing ProviderResult TypeResult StatusBia Cao MDLAB BLOOD ORDERABLES Final ResultPerforming OrganizationAddressCity/State/ZIP CodePhone Number [facility] * (ABNORMAL) CBC auto differential (11/02/2025 9:07 AM EST)ComponentValueRef RangeTest MethodAnalysis TimePerformed AtPathologist SignatureWHITE BLOOD CELL COUNT, WBC5.94 - 11 10^9/LPROMEDICARED BLOOD CELL COUNT, RBC4.293.8 - 5.2 10^12/XQZBUTMIDFIKGOKLPJUI66.211.7 - 15.5 g/fURGTNVRHFYMMQUGXTWSO26.635 - 47 % PROMEDICAMEAN CELL VOLUME, QBR2741 - 100 fLPROMEDICAMEAN CELL HEMOGLOBIN, MCH 28.527 - 34 pgPROMEDICAMEAN CELL HEMOGLOGIN CONCENTRATION, MCHC33.532 - 36 g/dLPROMEDICARED CELL DISTRIBUTION WIDTH, RDW16.3(H)11.5 - 15 %[place] PLATELET IPRPJ146678 - 450 10^9/LPROMEDICAMEAN PLATELET VOLUME, MPV10.07 - 12 fLPROMEDICA% RKNIDIOCSWG52.0%[place]% HFVULISWHLN77.6%[place]% MONOCYTES 12.2%[place]% EOSINOPHILS3.2%[place]% BASOPHILS1.0%PROMEDICAABSOLUTE NEUTROPHIL2.91.5 - 6.6 10^9/LPROMEDICAABSOLUTE LYMPHOCYTE2.01.0 - 3.5 10^9/L PROMEDICAABSOLUTE MONOCYTE0.70.0 - 0.9 10^9/LPROMEDICAABSOLUTE EOSINOPHIL0.2 0.0 - 0.4 10^9/LPROMEDICAABSOLUTE BASOPHIL0.10.0 - 0.2 10^9/LPROMEDICA DIFFERENTIAL TYPEAUTOMATED DIFFERENTIALPROMEDICAComment: ?? PERFORMED AT [address],[place] [address] Specimen (Source)Anatomical Location / LateralityCollection Method / Volume Collection TimeReceived Time11/02/2025 9:07 AM EST11/02/2025 2:04 PM EST Narrative Authorizing ProviderResult TypeResult StatusBia VELASCO BLOOD ORDERABLES Final ResultPerforming OrganizationAddressty/State/ZIP CodePhone Number [facility] * Vitamin D 25 hydroxy Total (11/02/2025 9:07 AM EST)ComponentValueRef RangeTest MethodAnalysis TimePerformed AtPathologist SignatureVITAMIN D 25 HYD TOT81.4 30.0 - 100.0 ng/mLPROMEDICAComment: Vitamin D status ? 25 [place] Vitamin D Deficiency <20 ng/mL Insufficiency ? 20-29 ng/mL Sufficiency ? 30-100 ng/mL Toxicity >100 ng/mL NOTE: A pediatric reference range has not been established by the insulation engineman of this kit. The [place] [employer] recommends a Vitamin D level of = or >20ng/mL in infants and children. ?? PERFORMED AT [address],[place] [address] Specimen (Source)Anatomical Location / LateralityCollection Method / Volume Collection TimeReceived Time11/02/2025 9:07 AM EST11/02/2025 2:04 PM EST Narrative Authorizing ProviderResult TypeResult StatusBia VELASCO BLOOD ORDERABLES Final ResultPerforming OrganizationAddressty/State/ZIP CodePhone Number [facility] * NOTE (10/29/2025 2:40 [...] Performing Organization Information ?Site ID: QPT ?Name: [facility] ?Address: [address] [place] [phone] ?Director: Angel Noble MD Authorizing ProviderResult TypeResult StatusBia Cao MDQUESTFinal Result Performing OrganizationAddressCity/State/ZIP CodePhone Number [facility] * (ABNORMAL) Urinalysis with reflex microscopic (clean catch) (10/29/2025 2:40 PM EST)ComponentValueRef RangeTest MethodAnalysis TimePerformed AtPathologist SignatureCOLORDARK YELLOWYELLOWQUESTAPPEARANCETURBID(A)CLEARQUESTSPECIFIC GRAVITY1.0231.001 - 1.035QUESTPH< OR = 5.0(A)5.0 - 8.0QUESTGLUCOSENEGATIVE NEGATIVEQUESTBILIRUBINNEGATIVENEGATIVEQUESTKETONESTRACE(A)NEGATIVEQUESTOCCULT BLOOD2+(A)NEGATIVEQUESTPROTEIN2+(A)NEGATIVEQUESTNITRITENEGATIVENEGATIVEQUEST LEUKOCYTE ESTERASE3+(A)NEGATIVEQUESTWBCPACKED(A)< OR = 5 /WYEJNTOARRR10-07(A)< OR = 2 /HPFQUESTSQUAMOUS EPITHELIAL YHSIB33-40(A)< OR = 5 /HPFQUESTBACTERIA MANY(A)NONE SEEN /HPFQUESTCALCIUM OXALATE CRYSTALSFEWNONE OR FEW /HPFQUEST HYALINE CAST0-5(A)NONE SEEN /LPFQUESTSpecimen (Source)Anatomical Location / LateralityCollection Method / VolumeCollection TimeReceived TimeUrineUrine specimen obtained by clean catch procedure / Okihwjh1510/29/2025 2:40 PM EST 10/29/2025 2:40 PM EST Narrative Resulting Agency Comment Performing Organization Information ?Site ID: QPT ?Name: [facility] ?Address: [address] [facility], [address] [place] [address] ?Director: Angel Noble MD Authorizing ProviderResult TypeResult StatusBia Cao MDLAB URINE ORDERABLES Final ResultPerforming OrganizationAddressCity/State/ZIP CodePhone Number [facility] * (ABNORMAL) Urine culture (clean catch) (10/29/2025 2:40 PM EST)ComponentValue Ref RangeTest MethodAnalysis TimePerformed AtPathologist SignatureMICRO NUMBER [id number] QUALITYAdequateQUESTSOURCE: (QUEST)URINEQUESTSTATUSFINAL QUESTISOLATE 1SEE NOTE(A)QUESTComment: Greater than [...] specimen obtained by clean catch procedure / Wsrhtlo0710/29/2025 2:40 PM EST10/29/2025 2:40 PM EST Narrative Resulting Agency Comment Performing Organization Information ?Site ID: QPT ?Name: [facility] ?Address: [address] [place] [address], [address] [place] [phone] ?Director: Angel Noble MD Authorizing ProviderResult TypeResult [...] Location / LateralityCollection Method / VolumeCollection TimeReceived FukuAcrdt31/08/2025 2:36 PM EST Narrative Authorizing ProviderResult TypeResult Dillon Cao MDPOINT OF CARE TEST ENTER/EDIT ORDERABLESFinal Result from Last 3 Months Additional Health Concerns Active ProblemsNoted DateDiagnosed DatePatient on antidepressant monitoring plan 08/08/2024 Insurance * Guarantor: Angela Ruth TypeRelation to PatientDate of BirthPhone Billing AddressPersonal/ZyxrtoLudj1945 [address] [place] [address] Care Teams Team MemberRelationshipSpecialtyStart DateEnd Date Bia Cao MD [address] [place] [place] [address] PCP - Generalmily Medicine04/29/23 Bia Cao MD [address] [place], [place] [phone] PCP - [employer]11/22/21
--- OUTSIDE RECORDS SUMMARY | 2025-11-19 08:32 | XMS_ITS | Encounter Summary ---
Author Organization [facility] Address [address] [facility] [place] [address] Care Team Providers Care Cyber Threat Analyst Name Role Phone Bia Cao MD Primary Care Provider [phone] Bia Cao MD Unavailable Encounter Details DateTypeDepartmentCare Team (Latest Contact Info)Kvdxwubvdzl86/14/2025Results Follow-Up [facility] [address] [place] [phone] Bia Cao MD [address] [facility] [place] [address] CBC auto differential, Comprehensive metabolic [...] week04/02/2024How often do you attend rastafarian or amish services?More than 4 times per year 04/02/2024o you belong to any clubs or organizations such as rastafarian groups, unions, fraternal or athletic groups, or school groups?Yes04/02/2024How often do you attend meetings of the clubs or organizations you belong to?More than 4 times per year04/02/2024re you , , , , never , or living with a partner?Tavlwpq1004/02/2024UDIT-CAnswerDate RecordedQ1: How often do you have a [...] and heating?Not very hard04/02/2024HQ-2AnswerDate RecordedPatient Health Questionnaire-2 Gcrrz995[facility] [place] of Occupational [facility] - Occupational Stress QuestionnaireAnswerDate [...] InformationValueDate RecordedSex Assigned at BirthNot on fileLegal WhmCbifbb16/15/2023 7:26 PM EDTGender Identity Not on fileSexual [...] Plan of Treatment DateTypeDepartmentCare Team (Latest Contact Info)Dhjzzevsgwv16/09/2026 1:40 PM EDTOffice Visit [facility] Family [facility] [address] [facility] [place] [phone] Bia Cao MD [address] [facility] [place] [address] 04/08/2026 10:15 AM EDTOffice Visit [facility] Podiatry [address] [place] [phone] Rodolfo Christianson, DPAdali [address] [place] [address] documented as of this encounter Goals GoalPatient [...] MemberRelationshipSpecialtyStart DateEnd Date Bia Cao MD [address] [facility] [place] [address] PCP - GeneralFamily Medicine04/29/23 Bia Cao MD [address] [facility] [place] [address] PCP - [employer]11/22/21documented as of this encounter
--- OUTSIDE RECORDS SUMMARY | 2025-11-19 08:32 | XMS_ITS | Encounter Summary ---
Author Organization [facility] tem Address [id number] [place] [address] Care Team Providers Care Ware Tester Name Role Phone Bia Cao MD Primary Care Provider [phone] Reason for Visit * ReasonOnset DateCommentsMed Tmvvaw1111/09/2025 Encounter Details DateTypeDepartmentCare Team (Latest Contact Info)Bnbateovson76/19/2025Refill [facility] Adult Endocrinology, A Department of [facility] [address] [phone] Liana Gonzales LPN Hypothyroidism, unspecified type Social History Tobacco UseTypesPacks/DayYears UsedDateSmoking Tobacco: NeverPassive Smoke Exposure: PastSmokeless Tobacco: NeverAlcohol UseStandard Drinks/WeekCommentsNo0 (1 standard drink = 0.6 oz pure alcohol)PHQ-2AnswerDate RecordedTotal Score2 5ChildcareAnswerDate IznkjxoeUatwrrtzuCxydfqs51/05/2019EmploymentAnswer Date CmkutrqiHrpjrbqzbuEuatwau10/05/2019Hunger ScreeningAnswerDate Recorded Within the past 12 months we worried whether our food would run out before we got money to buy more.Never True06/13/2025Within the past 12 months the food we bought just didn't last and we didn't have money to get more.Never True 06/13/2025Purpose - LifeAnswerDate RecordedPurpose and direction in lifeUnknown 1CommentsNoSex and Gender InformationValueDate RecordedSex Assigned at AzxqmBhnexk06/01/2021 10:31 PM EDTLegal LeuBieyyl19/06/2015 11:21 AM EDTGender UxosryqiWecafr45/01/2021 10:31 PM EDTSexual OrientationStraight 05/22/2021 10:31 PM EDTdocumented as of this encounter Miscellaneous Notes * Telephone Encounter - Liana Gonzales LPN - 11/09/2025 10:11 AM EST PLEASE SIGN AND SEND. THANK YOU. documented in this encounter Plan of Treatment DateTypeDepartmentCare Team (Latest Contact Info)Jndhjnnqgfx43/06/2026 1:00 PM ESTInfusion [facility] - Medical Oncology [address] [place] [phone] 02/26/2026 1:00 PM EDTOffice Visit [facility] [address] [place] [address] [place] [address] Krishna Kramer MD [address] [place] [phone] documented as of this encounter Goals GoalPatient Goal TypeAssociated ProblemsRecent ProgressPatient-Stated?Author safe discharge to home Ginna Otto RN Note: Evaluation of progress towards goal: safe transition from hospital to home with support of her friends/neighbors documented as of this encounter Visit Diagnoses Diagnosis Hypothyroidism, unspecified type documented in this encounter Additional Health Concerns AssessmentNoted TimePHQ-9 Depression Total Score: 8:08 AM EDT documented as of this encounter Care Teams Team MemberRelationshipSpecialtyStart DateEnd Date Bia Cao MD PCP - GeneralFamily Medicine02/05/23documented as of this encounter
--- OUTSIDE RECORDS SUMMARY | 2025-11-19 08:32 | XMS_ITS | Clinical Summary ---
Author Organization [facility] Address [address] [place] [address] Care Team Providers Care Team Assistant Name Role Phone (Hist), No Pcp Primary Care Provider Corey Messina MD Unavailable [phone] Allergies Active AllergyReactionsCriticalityNoted DateCommentsAdhesiveOther: See Comments 11/04/2016 States causes blisters/even paper tape Amoxicillin-Pot MmhhqchmlbkNxdw14/23/2011spartameOther: See CommentsLow 02/12/2017 migraines Clavulanic BsfcQeydXrf24/24/5376OfdtakdtoOxhrGfk65/24/2017Egg WhiteSwelling 08/14/2011 Says about 1964? and only one arm affected. No rash, hives, or trouble breathing Influenza Virus BuzczxbgWsxtjtbkBemjoa06/24/8049IpstqjlfnqZkroRme45/14/2016 YdptoxahruxgNvlctxqbyrtZqul03/24/8613QfechbffzSlrfQkr54/14/2016PenicillinsRash Low11/04/2016 Medications MedicationSigDispense QuantityRefillsLast FilledStart DateEnd DateStatus [...] 20 mg capsule 20 mg once daily.12/02/2016Active mqzozkibozxay-qmmzhukcerpgjrisqf-tyyaqladdwqfs (MIDRIN) 65-100-325 mg per capsule 1 capsule [...] mg in the A.M and 200 at islkaqv286Active hydrALAZINE (APRESOLINE) 100 mg tablet take 1 [...] back pain with sciatica 01/27/2018 Encounters DateTypeDepartmentCare EvesWyaravmebov54/18/2025 Patient Msg [facility] [address] [place] [address] Vanesa Morgan, 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 Follow up /18/2025 Patient Msg Medical Records [address] [place] [address] (Hist), No Pcp Update for Our Medicare Patients Regarding Virtual Xngqzm5210/02/2025Travel 10/01/2025 10:42 AM EST - 10/01/2025 11:59 PM ESTHospital Encounter Radiology [address] [place] [address] 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] Discharge Disposition: Home10/01/20259114Fthves39/08/2025 [place] [address] Provider, [facility] MRI Screening Questionnaire Completion Euetztcs71/05/2025 Patient Msg Medical Records [address] [place] [address] (Hist), No Pcp Important Notice for Our Medicare Patients Regarding Appointment Schedulingfrom Last 3 Months Social History Tobacco UseTypesPacks/DayYears UsedDateSmoking Tobacco: NeverSmokeless Tobacco: NeverAlcohol UseStandard Drinks/WeekCommentsNo0 (1 standard drink = 0.6 oz pure alcohol)Area Deprivation IndexAnswerDate RecordedNational Score (1-100), lower number is lower rijr190304/04/2024State Score (1-10), lower number is lower risk9 04/04/2024ata from: https://www.neighborhoodatlas.medicine.[facility]/. Last address used for [address]4CommentsNoSex and Gender InformationValueDate RecordedSex Assigned at BirthNot on fileLegal Sex Gzoupn2110/23/2012 8:38 AM ESTGender IdentityNot on fileSexual OrientationNot on file Last Filed Vital Signs Vital SignReadingTime TakenCommentsBlood Ucliugtt308/8109/26/2024 1:39 PM EST Aiazd912809/26/2024 1:39 PM UMKRomjgecqrul41.5 ??C (97.7 ??F)04/04/2024 11:29 AM EDTRespiratory Wpry775704/04/2024 11:29 AM EDTOxygen Ysynaezmyd74%09/26/2024 1:39 PM ESTInhaled Oxygen Concentration--Eteiiw01 kg (147 lb 11.3 oz)09/26/2024 1:39 PM RONKgiuqn574 cm (5' 3 )04/04/2024 11:29 AM EDTBody Mass Index26.17004/04/2024 11:29 AM EDT Plan of Treatment Health MaintenanceDue DateLast DoneCommentsAnxiety Clfwsyedz27/08/1963Depression Mfmlygtwx06/08/1963Shingrix Vaccine (2 of 3)DTaP,Tdap,Td Vaccine (1 - Tdap)dvance Directive Tdtadbrmjo57/01/2025 Medicare Advantage Annual Wellness Visit11/22/2024ovid-19 Vaccine (3 - season)504/, 02/12/2021Influenza Vaccine (#1)2025 09/17/2020, 08/30/2019, 08/29/2018, Additional history existsDiabetes Screening 703/, 01/11/2024, 2023, Additional history exists Pneumococcal Vaccine: 50+Xqtacmfog36/22/2020, 08/13/2015, 08/31/2003Bone Density GwjoshcspOaybifjro74/12/2024Mammogram TwzlgmehnEfvttzfqawyb61/02/2024, 02/22/2024, 12/13/2020, Additional history existsRSV SqcpsbgZdwozuvfp36/05/2024 Procedures Procedure NamePriorityDate/TimeAssociated DiagnosisCommentsMRI BRAIN WO/W IVCON Efljfak5410/01/2025 11:48 AM EST Benign neoplasm of meninges [...] cerebellar hemisphere, likely reflecting a small meningioma. Critical Care Unit Nurse: PSCB ?? Transcribe Date/Time: Oct 01 2025 [...] are within normal limits. Procedure Note Provider, [facility] - 10/01/2025 * * *Final Report* * [...] cerebellar hemisphere, likely reflecting a small meningioma. Critical Care Unit Nurse: ALLYSSA Transcribe Date/Time: Oct 01 2025 1:01P Dictated by : TISHA TRUONG MD This examination was interpreted and the report reviewed and electronically signed by: TISHA TRUONG MD on Oct 01 2025 1:08PM EST Authorizing ProviderResult TypeResult StatusTara Morgan RECORD PRODUCER.CNPMRI-PAMAFinal Result from Last 3 Months Insurance * Guarantor: Angela Ruth TypeRelation to PatientDate of BirthPhone Billing AddressPersonal/GcunqbNkzj1945 [address] [place] [address] Care Teams Team MemberRelationshipSpecialtyStart DateEnd Date (Hist), No Pcp PCP - Zpniuvv89/14/17 Corey Chacon MD NI Referring TeamNeurosurgery03/24/24
--- OUTSIDE RECORDS SUMMARY | 2025-11-19 08:36 | XMS_ITS | CCD ---
Author Organization [facility] CliniSyhi Care Team Providers Care Master Ocean Yacht Name Role Phone LENNY PEDRAZA Unavailable Unavailable AUDREY HORN Unavailable Unavailable AUDREY HORN Unavailable Unavailable LENNY PEDRAZA Unavailable Unavailable NASH, BIA F Primary Care Unavailable NASH, BIA F Primary Care Unavailable Jacob Viveros Unavailable Unavailable Nash GARCIA, Bia Mccormick Primary Care Provider (Hist), No Pcp Primary Care Provider Unavailabl e Oswaldo GARCIA, Croey Castillo Unavailable [phone] Oswaldo GARCIA, Corey Castillo Unavailable Jacob Viveros [...] FacilityAmoxicillin / Clavulanate (1 source)Amoxicillin / ClavulanateDrug Mslciav56-96-0398HvgzAfzwmjcip Clinic Aspartame (1 source)AspartameDrug Rinbzpa28-37-8830Sitsj: See Comments Clavulanate (1 source)ClavulanateDrug Fjjfduy97-32-3168QcekJkrilxaou Clinicegg white (chicken) allergenic extract (1 source)egg white (chicken) allergenic extractDrug Pjpvojw07-68-0762Jvfyaxuz Lincomycin (1 source)LincomycinDrug Aygkfvf64-82-4416BcssEpgfloaqd ClinicNSAIDs (1 source)oxaprozinDrug Zztkqzf63-64-6522BfgrAcnlfuyun ClinicPenicillins (antibiotic) (1 source)PenicillinsDrug Jvfoyrj21-51-9728GutdRevwmwnqy Clinic (20 sources)Aspartame; Translations: [ASPARTAME]Drug Opkhqmz16-57-8015Oknwisy [facility] (20 sources)Clavulanate; Translations: [CLAVULANIC ACID]Drug Yrvupgl01-99-7462 [facility] (20 sources)Indomethacin; Translations: [INDOMETHACIN]Drug Hmksgby85-92-8851 Unknown, [facility] (20 sources)Influenza VaccinesDrug Ndfitrb61-12-6986KtzwOFWH [facility] (20 sources)Lincomycin; Translations: [LINCOMYCIN]Drug Cwcafdb89-26-9625 Anaphylaxis, [facility] (20 sources)LincomycinDrug Pswsizg20-45-3709IpxnimlRRJA Healthcare (20 sources)Penicillins; Translations: [PENICILLINS]Drug Ovjthen47-79-2801Ynnc [facility] (20 sources)Sulfamethoxazole / Trimethoprim; Translations: [SULFAMETHOXAZOLE-TRIMETHOPRIM]Drug Zlqhhyq44-53-9018NlfwoBZRF Healthcare (20 sources)Sulfonamides (Antibiotic)Drug Nmzvtptgzvm65-74-1755NfjgkSLVT Healthcare (20 sources)Amoxicillin-Pot Clavulanate; Translations: [AMOXICILLIN-POT CLAVULANATE]Drug Bjokhsa73-12-1270KmqhATMG Healthcare Work Phone: (20 sources)Clemizole; Translations: [CLEMIZOLE]Propensity to adverse reactions 42-78-2751XvghNXDSBarn[facility] (6 sources)Eggs Or Egg-Derived ProductsDrug Fasnuds40-74-7618Fjyivhva, Unknown [facility] (20 sources)Other; Translations: [OTHER]Propensity to adverse reactions 65-28-6705Lzibtlpp, Other (See Comments)[facility] Work Phone: (20 sources)Poultry MealPropensity to adverse arvnjvctd27-16-3517LS[facility] (20 sources)Wound Dressing AdhesiveDrug Sdaicze94-65-8235UfsmULPR Healthcare (20 sources)Adhesive agent; Translations: [ADHESIVE]Drug Vbzrjxd71-31-7905Pdwdi: See Comments Work Phone: (20 sources)AspartameDrug Eduhtle85-03-2718Htqin: See Comments, Other (See Comments) (20 sources)Clindamycin; Translations: [LINCOSAMIDES]Drug Rptmxxz53-38-9088 Anaphylaxis (6 sources)egg white (chicken) allergenic extract; Translations: [EGG WHITE]Drug Jcbedep45-07-3211XmyuqlmzChwoxyhwd Clinic (20 sources)oxaprozin; Translations: [OXAPROZIN]Drug Ypfkakl99-08-5046Iify [facility] (11 sources)PenicillinsDrug Kmdogcz60-72-8646PcyqPneeefahj Clinic (20 sources)Influenza Virus Vaccines; Translations: [INFLUENZA VIRUS VACCINES] Drug Etoswnx57-79-0379EnlruhfxCisfxmmll Clinic (20 sources)Egg-Derived ProductsDrug Bppuaih20-09-7287Xylkimth, UnknownSt. [facility] (20 sources)egg shell membrane; Translations: [EGGSHELL MEMBRANE]Propensity to adverse reactions to yywp38-88-1949GkuQrbdqq [facility] (13 sources)PenicillinsPropensity to adverse reactions to eyjv71-45-9353Asfy [facility] (16 sources)Emvmpnuq-5-Le6 Antimigraine Agents; Translations: [GMPUXZCA-2-NQ0 ANTIMIGRAINE AGENTS]Propensity to adverse reactions to nywb16-47-7238NqjGofgic Health System (3 sources)chicken allergenic extract; Translations: [POULTRY]Drug Allergy 91-35-1784BohNfxxlz Repository (3 sources)Sulfonamides (Antibiotic); Translations: [SULFA (SULFONAMIDE ANTIBIOTICS)]Propensity to adverse reactions to drug (disorder)11-11-2022 [facility] (5 sources)Adhesive agentPropensity to adverse reactions to erim97-51-4641 [facility] (2 sources)Egg Protein-Containing Drug ProductsDrug Eiaptzj34-62-2335Dyhsoknx, UnknownNOMS Healthcare Medications Current Medications MedicationDrug Class(es)DatesSig [...] mouth every six hours as needed for lcizukmeiygbgfu-cyoezvulothai-pqafwnwi (EXCEDRIN MIGRAINE) 250-250-65 mg per tablet Take 1 tablet by mouth every 6 (six) hours as needed for headaches. Activeacetaminophen 325 mg / dichloralphenazone 100 mg / isometheptene 65 mg oral capsule (6 sources)take 1 capsule by mouth every six hours as needed xxkakhwxpbnjx-lnxssabvndsjzplsuz-mkbifaebedqqo (MIDRIN) 65-100-325 mg per capsule 1 capsule four times daily as needed. Wgsfvfuyu006336 200 actuat albuterol 0.09 mg/actuat metered dose inhaler (20 sources)beta2-Adrenergic AgonistStart: 06-04-2023 End: 67-57-9900nbcl 2 puff(s) by inhalation every four hours for wheezing albuterol HFA 90 mcg/act inhaler Indications: Mild intermittent asthma without complication (HCC) Inhale 2 puffs every 4 (four) hours if needed for shortness of breath or wheezing 18 g 3 07/10/2025 ActiveStart: 58-02-0380NUGEFE HFA 90 mcg/actuation inhaler as needed. 0 09/30/2017 Activetake 2 puff(s) by inhalation every four hours as needed for wheezingalbuterol (PROVENTIL HFA;VENTOLIN HFA) 90 mcg/actuation inhaler Inhale 2 puffs every 4 (four) hoursas needed for wheezing or shortness of breath. PRO AIR Activealendronic acid 70 mg oral tablet (20 sources)BisphosphonateStart: 01-25-2024 End: 62-52-1337rchnmuuwzyj (FOSAMAX) 70 mg tablet Take 1 tablet (70 mg total) by mouth every 7 days. 01/25/2024 02/12/2025 DiscontinuedStart: 60-24-9965emmk 1 tablet by mouth every weekalendronate (FOSAMAX) 70 mg tablet Take 70 mg by mouth one time a week. 01/25/2024 Activetake 1 tablet by mouth once dailyalendronate (Fosamax) 35 MG tablet 1 tablet 30 minutes before the first food, beverage or medicine of the day with plain water Orally weekly 0 Activeamitriptyline hydrochloride 50 mg oral tablet (20 sources)Tricyclic AntidepressantStart: 11-17-2023 End: 46-32-8985ldrg 1 tablet by mouth once dailyamitriptyline (ELAVIL) [...] tablet (20 sources)HMG-CoA Reductase InhibitorStart: 10-27-2017 End: 69-43-5071xage 1 tablet by mouth in the morningatorvastatin (LIPITOR) 40 mg tablet Take 1 tablet (40 mg total) by mouth in the morning. 03/15/2022ctive azithromycin 250 mg oral tablet (2 sources)Macrolide AntimicrobialStart: 01-23-2025 End: 18-31-3872ytqy 2 tablets by mouth once daily, then take 1 tablet by mouth once dailyazithromycin (Zithromax) 250 MG tablet Indications: Acute bronchitis, unspecified organism Take 2 tablets (500 mg) by mouth Daily for 1 day, THEN 1 tablet (250 mg) Daily for 4 days. 6 tablet 01/23/2025 01/27/2025 Active benzonatate 200 mg oral capsule (2 sources)Non-narcotic AntitussiveStart: 01-15-2025 End: 08-66-1430hgus 1 capsule by mouth three times daily as needed for cough benzonatate (Tessalon) 200 MG capsule Indications: Influenza A Take 1 capsule (200 mg) by mouth 3 (three) times a day as needed for cough for up to 7 days Do not crush or chew. 20 capsule 01/15/2025 01/22/2025 Vqjnus023 hr buprenorphine 0.0075 mg/hr transdermal system (20 sources)Partial Opioid AgonistStart: 96-10-4547kfmme 1 dose transdermal route every weekbuprenorphine (BUTRANS) [...] (20 sources)alpha-Adrenergic To, beta-Adrenergic BlockerStart: 01-12-2024 End: 06-59-9011hkgu 1 tablet by mouth oncecarvedilol (Coreg) 25 MG tablet Indications: Essential hypertension (CMS/HCC) Take 1 tablet (25 mg)by mouth every 12 (twelve) hours 200 tablet 3 01/12/2024 ActiveStart: 12-04-2022 End: 64-58-4200qjmj 1 tablet by mouth in the morning, [...] oral tablet (6 sources)Quinolone AntimicrobialStart: 01-26-2025 End: 45-62-9171neda 1 tablet by mouth in the morningciprofloxacin (Cipro) 500 MG tablet Indications: Acute cystitis without hematuria Take 1 tablet (500 mg) by mouth in the morning and 1 tablet (500 mg) before bedtime. Do all this for 7 days. 14 tablet 01/26/2025 02/02/2025 ActiveStart: 07-03-2024 End: 46-24-3992smoi 1 tablet by mouth in the morningciprofloxacin [...] oral tablet (2 sources)Tetracycline-class DrugStart: 08-14-2024 End: 30-17-3491xqwwevcyjiq (Vibra-Tabs) 100 MG tablet Indications: Acute bronchitis, [...] tablet (20 sources)Serotonin Reuptake InhibitorStart: 12-15-2023 End: 32-69-1357cpse 1 tablet by mouth at mealtimeescitalopram (Lexapro) [...] tablet (20 sources)Histamine-2 Receptor AntagonistStart: 07-07-2023 End: 14-31-8301clav 1 tablet by mouth once dailyfamotidine (PEPCID) 20 mg tablet Take 1 tablet (20 mg total) by mouth nightly. 90 tablet 3 11/29/2023 Active fenofibrate 160 mg oral tablet (20 sources)Peroxisome Proliferator Receptor alpha AgonistStart: 11-06-2024 End: 12-71-6763fscw 1 tablet by mouth in the morningfenofibrate (Triglide) 160 MG tablet Indications: Hyperlipidemia, unspecified hyperlipidemia type Take 1 tablet (160 mg) by mouth in the morning. 40 tablet 11 11/06/2024 ActiveStart: 10-26-2023 End: 78-42-3244xgxm 1 tablet by mouth in the morningfenofibrate (Triglide) 160 MG tablet Indications: Hyperlipidemia, unspecified hyperlipidemia type (CMS/HCC) Take 1 tablet (160 mg) by mouth in the morning. 100 tablet 3 10/26/2023 Active ferrous sulfate 325 mg oral tablet (20 sources)Start: 01-18-2024 End: 35-26-4838tqqi 1 tablet by mouth in the morning, [...] dose nasal spray (20 sources)CorticosteroidStart: 08-23-2023 End: 70-55-4236gdug 1-2 spray(s) nasal route in the morningfluticasone (Flonase) 50 MCG/ACT nasal spray Indications: Allergic rhinitis due to pollen, unspecified seasonality Administer 1-2 sprays into each nostril in the morning. Shake gently. Before first use, prime pump. After use, clean tip and replace cap.. 16 g 2 08/23/2023 Azqjhq976 ml glucose 50 mg/ml injection (1 source)Start: 55-73-4407tbqw 25 mL intravenously every hour as jxftug62 mL/hr, intravenous, Continuous PRN, When mainline IV needed., Starting on Wed08/17/25 at 1257, Match IVF to base solution of product being administered to ensure compatibility.hydrALAZINE hydrochloride 100 mg oral tablet (20 sources)Arteriolar VasodilatorStart: 07-26-2023 End: 02-25-6894yqwpYIGFAQA (APRESOLINE) 100 mg tablet Indications: Essential hypertension [...] Diuretic, Angiotensin Converting Enzyme InhibitorStart: 12-06-2023 End: 97-76-6377hrht 1 tablet by mouth in the morninglisinopril- [...] with radiology test) (2 sources)Start: 09-26-2024 End: 31-38-7051bhjvwi 1 dose intravenously onceiv contrast (will be [...] 1 Each 09/26/2024 09/27/2024 ActiveStart: 05-09-2024 End: 97-84-7930pdscbd 1 dose intravenously onceiv contrast (will be [...] mg oral tablet (20 sources)l-ThyroxineStart: 01-21-2018 End: 15-15-6327qbkbclkgikjck (SYNTHROID, LEVOTHROID) 150 MCG tablet Indications: Hypothyroidism, [...] 500 mg oral tablet (20 sources)Muscle RelaxantStart: 86-19-6382dvegiiulwkxvL (ROBAXIN) 500 mg tablet Take 2 tablets (1,000 mg total) by mouth. 04/19/2024 Activemetoclopramide 10 mg oral tablet (6 sources)Dopamine-2 Receptor Antagonisttake 1 tablet by mouth every six hours as neededmetoclopramide HCl (REGLAN) 10 mg tablet Take 10 mg by mouth every 6 hours as needed. Uefoyy41 hr mirabegron 50 mg extended release oral tablet (20 sources)beta3-Adrenergic AgonistStart: 26-53-3528fhsm 1 tablet by mouth every twenty-four hours in the morningmirabegron (MYRBETRIQ) 50 mg tablet extended release 24 hr Take 1 tablet (50 mg total) by mouth in the morning. 30 tablet 12/19/2024 Activemirtazapine 15 mg oral tablet (20 sources)Start: 09-15-2025 End: 64-01-0816bbit 1 tablet by mouth at bedtimemirtazapine (Remeron) 15 MG tablet Indications: Primary insomnia , Major depressive disorder, single episode, in full remission Take 1 tablet (15 mg) by mouth at bedtime 90 tablet 11 09/19/2025 ActiveStart: 12-26-2024 End: 80-10-7898pslq 1 tablet by mouth at bedtimemirtazapine (Remeron) [...] capsule (20 sources)Proton Pump InhibitorStart: 11-29-2023 End: 01-79-1093uytl 1 capsule by mouth in the morningomeprazole (PriLOSEC) [address] capsule Indications: Gastroesophageal reflux disease without esophagitis Take 1 capsule by mouth in the morning 100 capsule 11 07/25/2025 ActiveStart: 75-24-6161obujriyrdt (PRILOSEC) 20 mg capsule 20 mg once daily. 12/02/2016 Activeoseltamivir 75 mg oral capsule (2 sources)Neuraminidase InhibitorStart: 01-15-2025 End: 39-07-7745iocy 1 capsule by mouth in the morningoseltamivir (Tamiflu) 75 MG capsule Indications: Influenza A Take 1 capsule (75 mg) by mouth in themorning and 1 capsule (75 mg) before bedtime. Do all this for 5 days. 10 capsule 01/15/2025 01/20/2025 Uirkwl07 hr oxybutynin chloride 10 mg extended release oral tablet (20 sources)Cholinergic Muscarinic AntagonistStart: 11-21-2020 End: 14-19-7548fgzj 1 tablet by mouth once daily at breakfastoxybutynin XL (DITROPAN-XL) 10 mg 24 hr tablet Take 1 tablet (10 mg total) by mouth daily with breakfast. 11/21/2020 ActiveStart: 11-21-2020 End: 25-36-1154likj 1 tablet by mouth every twenty-four hoursoxybutynin ER (DITROPAN XL) 10 mg 24 hr tablet Take 10 mg by mouth. 11/21/2020 Active polyethylene glycol 3350 27125 mg powder for oral solution (3 sources)Osmotic LaxativeStart: 07-10-2024 End: 17-52-5174qblsbbzecxyw glycol, PEG, 3350 (MiraLax) 17 GM/SCOOP powder Indications: Chronic idiopathic constipation Take 17 g by mouth Daily for 3 days 527 g 2 07/10/2024 07/13/2024 ActivepredniSONE 10 mg oral tablet (4 sources)Start: 01-23-2025 End: 34-13-4610gldo 1 tablet by mouth four times daily, [...] 20 tablet 01/23/2025 01/30/2025 ActiveStart: 08-14-2024 End: 12-30-4527whfl 1 tablet by mouth once dailypredniSONE (Deltasone) 20 MG tablet Indications: Acute bronchitis, unspecified organism Take 1 tablet (20 mg) by mouth Daily for 5 days 5 tablet 08/14/2024 08/19/2024 Htovvo5630 ml sodium chloride 9 mg/ml injection (1 source)Start: 36-00-2515nzsl 25 mL intravenously every hour as lxiten57 mL/hr, intravenous, Continuous PRN, When mainline IV [...] Activetopiramate 100 mg oral tablet (6 sources)Start: 64-12-2602ccsejydrlu (TOPAMAX) 100 mg tablet 300 mg once daily. 100 mg in the A.M and 200 at bedtime 0 12/21/2017 Activeubrogepant 100 mg oral tablet (20 sources)Start: 01-07-2024 End: 22-87-1181cgyx 1 tablet by mouth every twenty-four hours as neededUbrelvy 100 MG tablet Take 1 tablet by mouth Daily as needed (migraine) 02/26/2025 Activeverapamil hydrochloride 120 mg extended release oral tablet (6 sources)Calcium Channel BlockerStart: 67-31-6675kwsjujess SR (CALAN SR, ISOPTIN SR) 120 mg CR tablet 1 tablet three times daily. 12/27/2017 Active zafirlukast 20 mg oral tablet (20 sources)Leukotriene Receptor AntagonistStart: 01-07-2018 End: 51-53-1747xwbb 1 tablet by mouth in the morning, [...] Central Nervous System Stimulant, MethylxanthineStart: 04-23-2023 End: 09-05-6017yvts 1 tablet by mouth every four hours as needed bnzskapgfg-pdprwrgmyjizw-pejjepuz 50-325-40 MG tablet Take 1 tablet by mouth every 4 (four) hours if needed. 04/23/2023 12/08/2024 Discontinuedmeclizine hydrochloride 25 mg oral tablet (20 sources)Antiemetic End: 75-54-9229mvokjouzy (Antivert) 25 MG tablet Take 25 mg by mouth. 12/08/2024 Discontinuednaproxen 250 mg oral tablet (20 sources)Nonsteroidal Anti-inflammatory Drug End: 50-88-0799ydampllb (Naprosyn) 250 MG tablet Take by mouth 12/08/2024 DiscontinuedNIFEdipine 60 mg osmotic 24 hr extended release oral tablet (20 sources)Dihydropyridine Calcium Channel BlockerStart: 04-23-2023 End: 87-92-0389jdxv 1 tablet by mouth every twenty-four hours in the morning NIFEdipine XL (Procardia XL) 60 MG 24 hr tablet Take 60 mg by mouth in the morning. 04/23/2023 12/08/2024 Discontinuednitrofurantoin, macrocrystals 25 mg / nitrofurantoin, monohydrate 75 mg oral capsule (7 sources)Nitrofuran AntibacterialStart: 01-01-2025 End: 31-62-1905taml 1 capsule by mouth in the morningnitrofurantoin, macrocrystal-monohydrate, (Macrobid) 100 MG capsule Indications: Acute cystitis with hematuria Take 1 capsule (100 mg) by mouth in the morning and 1 capsule (100 mg) before bedtime. Do all this for 7 days. 14 capsule 01/01/2025 01/09/2025 Discontinued (Therapy completed)Start: 12-11-2024 End: 45-10-6112gbpk 1 capsule by mouth in the morningnitrofurantoin, macrocrystal-monohydrate, (Macrobid) 100 MG capsule Indications: Acute cystitis without hematuria Take 1 capsule (100 mg) by mouth in the morning and 1 capsule (100 mg) before bedtime. Do all this for 7 days. 14 capsule 12/11/2024 12/18/2024 ActiveStart: 07-14-2024 End: 77-84-2253unso 1 capsule by mouth in the morningnitrofurantoin, macrocrystal-monohydrate, (Macrobid) 100 MG capsule Indications: Acute cystitis without hematuria Take 1 capsule (100 mg) by mouth in the morning and 1 capsule (100 mg) before bedtime. Do all this for 7 days. 14 capsule 07/14/2024 07/21/2024 Activeromosozumab (20 sources)Start: 09-25-2025 End: 52-42-3486927 mg, subcutaneous, Once, On Wed09/25/25 at 1515, For 1 dose, Bring to room temp for at least 30min in original container. Give sub-Q into abdomen, thigh, or outer area of upper arm. Give two consecutive SubQ injections of 105 mg each for a total dose of 210 mg. Rotate injection sites.Start: 08-17-2025 End: 52-90-5803914 mg, subcutaneous, Once, On Wed08/17/25 at 1300, For 1 dose, Bring to room temp for at least 30min in original container. Give sub-Q into abdomen, thigh, or outer area of upper arm. Give two consecutive SubQ injections of 105 mg each for a total dose of 210 mg. Rotate injection sites.Start: 07-20-2025 End: 05-51-1938062 mg, subcutaneous, Once, On Wed07/20/25 at 1315, For 1 dose, Bring to room temp for at least 30min in original container. Give sub-Q into abdomen, thigh, or outer area of upper arm. Give two consecutive SubQ injections of 105 mg each for a total dose of 210 mg. Rotate injection sites.Start: 06-13-2025 End: 90-04-6155006 mg, subcutaneous, Once, On Wed06/13/25 at 1230, For 1 dose, Bring to room temp for at least 30min in original container. Give sub-Q into abdomen, thigh, or outer area of upper arm. Give two consecutive SubQ injections of 105 mg each for a total dose of 210 mg. Rotate injection sites.Start: 05-16-2025 End: 46-67-1502016 mg, subcutaneous, Once, On Wed05/16/25 at 1015, For 1 dose, Bring to room temp for at least 30min in original container. Give sub-Q into abdomen, thigh, or outer area of upper arm. Give two consecutive SubQ injections of 105 mg each for a total dose of 210 mg. Rotate injection sites.Start: 04-18-2025 End: 96-87-6297554 mg, subcutaneous, Once, On Wed04/18/25 at 1015, For 1 dose, Bring to room temp for at least 30min in original container. Give sub-Q into abdomen, thigh, or outer area of upper arm. Give two consecutive SubQ injections of 105 mg each for a total dose of 210 mg. Rotate injection sites.Start: 03-21-2025 End: 43-98-6613352 mg, subcutaneous, Once, On Wed03/21/25 at 1045, For 1 dose, Bring to room temp for at least 30min in original container. Give sub-Q into abdomen, thigh, or outer area of upper arm. Give two consecutive SubQ injections of 105 mg each for a total dose of 210 mg. Rotate injection sites.Start: 02-16-2025 End: 76-27-5516707 mg, subcutaneous, Once, On Wed02/16/25 at 1315, For 1 dose, Bring to room temp for at least 30min in original container. Give sub-Q into abdomen, thigh, or outer area of upper arm. Give two consecutive SubQ injections of 105 mg each for a total dose of 210 mg. Rotate injection sites.Start: 01-12-2025 End: 20-06-1360908 mg, subcutaneous, Once, On Wed01/12/25 at 1300, [...] tablet (20 sources)Central alpha-2 Adrenergic Agonist End: 25-64-3381mqgk 1 tablet by mouth once dailytiZANidine (Zanaflex) 4 MG tablet take 0.5 to 2 tablets by mouth nightly 12/08/2024 Discontinuedvitamin b12 1 mg sublingual tablet (14 sources)Vitamin P01Gxwkr: 01-18-2024 End: 83-33-5021zuaw 1 tablet under the tongue in the morningcyanocobalamin (VITAMIN B12) 1,000 mcg tablet, sublingual Place 1 tablet (1,000 mcg total) under the tongue in the morning. 30 tablet 11 01/18/2024 12/19/2024 Discontinued Problems Active Problems Problem ClassificationProblemDateDocumented DateEpisodic/ChronicAbdominal pain (2 sources)Flank pain; Translations: [Unspecified abdominal pain]01-23-2025 EpisodicAcute bronchitis (4 sources)Acute bronchitis; Translations: [Acute bronchitis, unspecified] 64-45-6019OpbchvybHdaazyv disorders (1 source)Anxiety; Translations: [Anxiety disorder, unspecified]01-03-2025 ChronicAsthma (20 sources)Asthma; Translations: [Unspecified asthma, uncomplicated]Onset: 982922-30-6632VqmwqlwErjezbo kidney disease (20 sources)Chronic kidney disease stage 3B ; Translations: [Stage 3b chronic kidney disease (CKD)]Onset: 663295-77-8631YkwtleiAhfqofgsgvmyf of surgical procedures or medical care (20 sources)Drug-induced hypotension; Translations: [Hypotension due to drugs] Onset: 802517-81-9588HlocmhhbZacaombqje associated with dizziness or vertigo (2 sources)Dizziness; Translations: [Dizziness and giddiness]11-66-9310Mrcnqlsn Conduction disorders (20 sources)First degree atrioventricular block; Translations: [Atrioventricular block, first degree]Onset: 134901-54-0711IogjbnmWgwlaclyol and other anemia (1 source)Anemia; Translations: [Anemia, unspecified]86-79-0602BlqmzffcHobrtxxce of lipid metabolism (20 sources)Hyperlipidemia; Translations: [Hyperlipidemia, unspecified]Onset: 192331-04-2298RkunuzaM Codes: Fall (3 sources)FallOnset: 321862-02-9436Nzdvtunwuz disorders (20 sources)Gastroesophageal reflux disease without esophagitis; Translations: [Gastro-esophageal reflux disease without esophagitis]Onset: 09-15-2021 20-34-3833CrqgcusAondhkvhm hypertension (20 sources)Essential hypertension; Translations: [Essential (primary) hypertension]Onset: 001589-43-6001AyqfbwsOnusplta of upper limb (1 source)Displaced fracture of proximal phalanx of left little finger, subsequent encounter for fracture with routine healing; Translations: [Displaced fracture of proximal phalanx of left little finger, subsequent encounter for fracture with routine healing]Onset: 70-98-9791LivjiohsJbbypgycssoik symptoms and ill-defined conditions (20 sources)Mixed urinary incontinence; Translations: [Mixed incontinence]Onset: 058722-48-2877AlskdetOqydtoet; including migraine (20 sources)Migraine; Translations: [Migraine, unspecified, not intractable, without status migrainosus]Onset: 12-12-2018 Resolved: 953097-06-1710RelokutXebmdxpyr (2 sources)Influenza due to Influenza A virus; Translations: [Influenza due to other identified influenza virus with other respiratory manifestations] 67-33-9490LrvwgnvrRbkoterpguaxj mental health disorders (20 sources)Primary insomnia; Translations: [Primary insomnia]Onset: 12-12-2018 66-51-7282AcwkjqaAecr disorders (20 sources)Depressive disorder; Translations: [Other specified depressive episodes]Onset: 046769-63-5149VahlhlxIknqdwl (2 sources)Onychomycosis due to dermatophyte ; Translations: [Tinea unguium] 09-79-6063HsyibpctXhnyqh and vomiting (20 sources)Postoperative nausea and vomiting; Translations: [Nausea with vomiting, unspecified]79-03-8522EhdybociEmwumocsrhn deficiencies (3 sources)Vitamin D deficiency; Translations: [Vitamin D deficiency, unspecified]Onset: 696744-94-3742CwqyvuqDxrvzswinhfgad (20 sources)Osteoarthritis of right knee joint; Translations: [Unilateral primary osteoarthritis, right knee]Onset: 182465-87-7090Ktcsfxn Osteoporosis (20 sources)Senile osteoporosis; Translations: [Age-related osteoporosis without current pathological fracture]Onset: 12-19-2019 Resolved: 083568-18-6561FvrdjqsRhgtk and ill-defined heart disease (20 sources)Diastolic dysfunction; Translations: [Other ill-defined heart diseases]Onset: 920017-40-2760UrdxdtuSsdnh and ill-defined heart disease (20 sources)Left ventricular hypertrophy; Translations: [Cardiomegaly]Onset: 940474-36-7871VvzgqryTjsir and unspecified benign neoplasm (2 sources)Intracranial meningioma; Translations: [Benign neoplasm of cerebral meninges]51-93-9722SubmzcyYqbdi and unspecified benign neoplasm (3 sources)Benign neoplasm of meninges; Translations: [Benign neoplasm of meninges, unspecified]85-40-6497AcsbyvbOfgkc and unspecified benign neoplasm (2 sources)Benign neoplasm of meninges, unspecified; Translations: [Benign neoplasm of meninges, unspecified]Onset: 94-19-3668UoqmsudWdgpe connective tissue disease (20 sources)Cramp in lower limb; Translations: [Sleep related leg cramps]Onset: 834325-71-8057DzabfpbJlies connective tissue disease (1 source)Trigger finger, right ring finger; Translations: [Trigger finger, right ring finger]Onset: 42-77-5117RlwfhxmdUyvfv connective tissue disease (1 source)Pain in left hand; Translations: [Pain in left hand]Onset: 09-28-2022 EpisodicOther connective tissue disease (4 sources)Pain in toe; Translations: [Pain in right toe(s)]28-40-0860Sllznequ Other ear and sense organ disorders (1 source)Sensorineural hearing loss in right ear; Translations: [Unspecified sensorineural hearing loss]50-73-9971CsmguziOuyda gastrointestinal disorders (20 sources)Chronic idiopathic constipation; Translations: [Chronic idiopathic constipation]Onset: 243630-95-9535UdmggurGhvhu hereditary and degenerative nervous system conditions (20 sources)Essential tremor; Translations: [Essential tremor]Onset: 12-12-2018 61-01-7574SnjqlccDcqbn hereditary and degenerative nervous system conditions (1 source)Essential tremor; Translations: [Essential tremor]Onset: 12-12-2018 ChronicOther lower respiratory disease (2 sources)Interstitial lung disease; Translations: [Interstitial pulmonary disease, unspecified]39-03-1941FoqshvtBqxhc lower respiratory disease (2 sources)Cough; Translations: [Acute cough]23-78-4803DqvkxgbrMlsqv nervous system disorders (1 source)Mass lesion of brain; Translations: [Other specified disorders of brain]49-66-8818CqayvgzZqfcd nervous system disorders (20 sources)Lesion of brain; Translations: [Disorder of brain, unspecified] Onset: 233857-51-9947WahpykwHlyuc nervous system disorders (20 sources)Chronic pain syndrome; Translations: [Chronic pain syndrome]Onset: 597395-31-3364OlubugsUvacr nervous system disorders (20 sources)Carpal tunnel syndrome; Translations: [Carpal tunnel syndrome, unspecified upper limb]Onset: 150151-72-7556XedhpheNtbgp skin disorders (2 sources)Dystrophia unguium; Translations: [Nail dystrophy]12-06-6438Ymzyugfj Other upper respiratory disease (2 sources)Allergic rhinitis due to pollen; Translations: [Allergic rhinitis due to pollen]70-08-7609PonmatcWvxnc upper respiratory disease (8 sources)Hoarse; Translations: [Dysphonia]11-19-5106KuwthjraWxfss upper respiratory disease (2 sources)Senile voice; Translations: [Other diseases of larynx]01-09-2025 EpisodicOther upper respiratory infections (2 sources)Posterior rhinorrhea; Translations: [Chronic sinusitis, unspecified] 08-47-4618WgycbnrHgyra upper respiratory infections (2 sources)Sore throat symptom; Translations: [Acute pharyngitis, unspecified] 68-30-7156FmycsepzZjhlbhxa of female genital organs (18 sources)Midline cystocele; Translations: [Cystocele, midline]Onset: 792190-56-8057IiczgkaVhhdnvkjvop; intervertebral disc disorders; other back problems (20 sources)Degeneration of lumbosacral intervertebral disc; Translations: [Other intervertebral disc degeneration, lumbosacral region]Onset: 08-14-2011 Resolved: 097037-83-3956QdkwoovIoshfia disorders (20 sources)Acquired hypothyroidism; Translations: [Hypothyroidism, unspecified] Onset: 125057-85-3956ZkokzfmRzonmkbqtgmm (20 sources)Patient on antidepressant monitoring planOnset: Unclassified (1 source)InjectionOnset: 97-93-3258Rgntagsvwsoq (1 source)EMSOnset: 85-80-9861Zwfldcrcnoni (1 source)Low back pain, unspecified; Translations: [Low back pain, unspecified] Onset: 81-32-9251Lgnlbba tract infections (6 sources)Acute cystitis; Translations: [Acute cystitis without hematuria] Onset: 961439-06-3265Xylinpid Past or Other Problems Problem ClassificationProblemDateDocumented DateEpisodic/ChronicAcute and unspecified renal failure (20 sources)Acute renal failure syndrome; Translations: [Acute kidney failure, unspecified]Onset: 917046-54-5815ZycmbzytWjbwf cerebrovascular disease (20 sources)Hematoma of subdural space of neuraxis; Translations: [SDH (subdural hematoma)]Onset: 01-04-2018 Resolved: 087018-93-5625DhqgqodLvthxcinnw disorders (20 sources)Adjustment disorder with anxious mood; Translations: [Adjustment disorder with anxiety]Onset: 05-04-2023 Resolved: 661875-42-1546JjaqjnbHnwalfrl of urinary tract (20 sources)Kidney stone; Translations: [Calculus of kidney]Onset: 03-02-2023 92-29-1110PmmawelpV Codes: Fall (6 sources)Fall; Translations: [Unspecified fall, subsequent encounter]Onset: 585883-57-5824EzrclgdqMjywtojeobbfl symptoms and ill-defined conditions (8 sources)Dysuria; Translations: [Dysuria]Onset: 204352-09-9076Xuoryaql Malaise and fatigue (20 sources)Asthenia; Translations: [Weakness]Onset: EpisodicMood disorders (20 sources)Mood disordersOnset: 12-06-2023 Resolved: Other circulatory disease (20 sources)Low blood pressure; Translations: [Hypotension, unspecified]Onset: 843844-39-4804WspsqtobForjt connective tissue disease (20 sources)Bilateral trochanteric bursitis; Translations: [Trochanteric bursitis, right hip]Onset: 383221-32-2591FhlzqlqtXxhjh connective tissue disease (20 sources)Recurrent falls ; Translations: [Repeated falls]Onset: 11-01-2017 63-36-7593QldywoqvYatmt connective tissue disease (20 sources)History of lumbar fusion; Translations: [Arthrodesis status]Onset: 646930-67-3874RhggvrmoPifap connective tissue disease (20 sources)Impingement syndrome of right shoulder region; Translations: [Impingement syndrome of right shoulder]Onset: 581455-13-2257IcoudpnhMefeo connective tissue disease (20 sources)Muscle spasm of cervical muscle of neck; Translations: [Other muscle spasm]Onset: 503823-55-1962EuztemmyPlzap connective tissue disease (20 sources)Nocturnal muscle spasm ; Translations: [Other muscle spasm]Onset: 808590-30-4754DfnzibktSkgvs connective tissue disease (1 source)Other muscle spasm; Translations: [Other muscle spasm]Onset: 20-87-1968LpptnblbWnmrj injuries and conditions due to external causes (20 sources)History of fall; Translations: [History of falling]Onset: 11-04-2023 99-64-7069YjyfpbxiZrxqr lower respiratory disease (20 sources)Nodule of lung; Translations: [Solitary pulmonary nodule]Onset: 995225-07-7351AwpwrkenMisqo lower respiratory disease (20 sources)Dyspnea; Translations: [Shortness of breath]Onset: 11-06-2019 65-49-5017YrxobbsuEoshb nervous system disorders (20 sources)Impairment of balance; Translations: [Other abnormalities of gait and mobility]Onset: 376324-77-1378QbbarruqYpeyb non-traumatic joint disorders (20 sources)Hip pain; Translations: [Pain in right hip]Onset: 10-13-2017 46-05-7861EocqskonThkub upper respiratory disease (20 sources)Chronic hoarseness; Translations: [Dysphonia]Onset: 07-24-2020 05-78-9778StiakeirAkpaqask codes; unclassified (18 sources)Family history of malignant neoplasm of breast in first degree relative; Translations: [Family history of malignant neoplasm of breast]Onset: 041084-72-8216WkelfibnWvozesii codes; unclassified (18 sources)Family history of malignant neoplasm of breast at under age 50 in second degree female relative; Translations: [Family history of malignant neoplasm of breast]Onset: 976604-03-0951IlfcfqzcHjmowlji codes; unclassified (18 sources)Family history of malignant neoplasm of ovary in second degree relative; Translations: [Family history of malignant neoplasm of ovary]Onset: 543550-32-9669XjbfqmjkGhwsasiqf and history of mental health and substance abuse codes (20 sources)H/O: depression; Translations: [Personal history of other mental and behavioral disorders]Onset: 912835-29-3153QsudjuhxDdbegqtddgg; intervertebral disc disorders; other back problems (20 sources)Spinal stenosis of lumbar region; Translations: [Spinal stenosis, lumbar region without neurogenic claudication]Onset: 08-14-2011 Resolved: 553191-91-5781Ercuayyc Results Test NameValueInterpretationReference RangeFacilityALLMISSION VALLEY [facility] HEALTHon 10-01-2025 ALLIED HEALTHHNO ID: [id number] Author: NUSRAT VEGA RT(Sahra) Service: Radiology Author [...] PATIENT PRESENTS WITH AN IMPLANTABLE OR ATTACHED PADDED PRODUCTS FINISHER: No ALLERGIES: Reviewed and unchanged CONTRAST ALLERGY: NO. EXAM: MRI - CONTRAST TYPE: GROUP II PERIPHERAL IV DATA: Ambulatory: A peripheral IV was started in the Left with a Angio cath: 24 gauge. RADIOLOGY DEPARTMENT: MR; Exam(s) Completed: Head: IAC/CPA. Anesthesia: No. Aromatherapy Administered: No SIGNATURE: RT [place](R) PATIENT NAME: Angela Ruth DATE: October 01, 2025 TIME: 11:06 AMNormalGreene [facility] BRA[facility]/W IVCONon 10-01-2025 MRI BRAIN WO/W IVCON* * *Final Report* * * DATE OF EXAM: Oct 01 2025 11:48AM [facility] 0295 - MRI BRAIN WO/W IVCON [...] cerebellar hemisphere, likely reflecting a small meningioma. Stucco Worker: [facility]ILDR[facility]S HOSPITALRobert Transcribe Date/Time: Oct 01 2025 1:01P Dictated by : TISHA TRUONG MD This examination was interpreted and the report reviewed and electronically signed by: TISHA TRUONG MD on Oct 01 2025 1:08PM EST [id number] Cross HospitalCALCIUMon 09-24-2025 Calcium [Mass/Vol]9.4 mg/dLNormal8.5-10.5PClermont County HospitalComment on above:Performed By: #### CA ####[facility] ([facility])[address], [place] [address] VIRCALCIUMon 65-94-5556Wsskerv [Mass/Vol]9.4 mg/dLNormal8.5-10.5PClermont County HospitalComment on above:Performed By: #### CA ####[facility] ([facility])[address], [place] [address] VIRCALCIUMon 37-74-3590Ljvswmi [Mass/Vol]9.4 mg/dLNormal8.5-10.5 [facility] HospitalComment on above:Performed By: #### CA ####[facility] ([facility])[address], [place] [address] VIR CALCIUMon 45-91-7431Bxissfy [Mass/Vol]9.5 mg/dLNormal8.5-10.5PClermont County HospitalComment on above:Performed By: #### CA ####[facility] ([facility])[address], [place] [address] VIRCALCIUMon 05-15-2025 Calcium [Mass/Vol]9.7 mg/dLNormal8.5-10.5PClermont County HospitalComment on above:Performed By: #### CA ####[facility] ([facility])[address], [place] [address] VIRCALCIUMon 54-32-4408Bvdmiav [Mass/Vol]9.5 mg/dLNormal8.5-10.5PClermont County HospitalComment on above:Performed By: #### CA ####[facility] ([facility])[address], [place] [address] VIRCALCIUMon 53-08-8014Ybpyjxd [Mass/Vol]9.6 mg/dLNormal8.5-10.5 [facility] HospitalComment on above:Performed By: #### CA ####[facility] ([facility])[address], [place] [address] VIR POCT Urinalysis Auto, W/O Microscopyon 98-71-4540Tchafmlb Poct Urine Blood NegativeProMedior Health SystemExternal Poct Urine GlucoseNegativeProMedior Health SystemExternal Poct Urine KetonesNegativeProMedior Health SystemExternal Poct Urine Leukocyte EsteraseNegativeProMedior Health SystemExternal Poct Urine NitriteNegativeProGreen Cross Hospital SystemExternal Poct Urine Ph5.5PFayette County Memorial Hospital SystemExternal Poct Urine Protein1+[facility] SystemProGreen Cross Hospital SystemCALCIUMon 84-35-9209Yykmrxr [Mass/Vol]9.3 mg/dLNormal8.5-10.5PClermont County HospitalComment on above:Performed By: #### 83010-8 #### [facility] ([id number]) [address] [place], [place] [address]LM ABDOMEN PELVIS WO IV CONTRASTon 03-51-9273PS ABDOMEN PELVIS WO IV CONTRASTCT ABDOMEN PELVIS [...] interpreting Radiologist.NormalNot AvailableUrinalysis macro (dipstick) panel (U)on 05-50-3622Krlayokxd, UANegativeNegative - 4(70) +++ mg/dLNOMS HealthcareBlood, UAPositiveNegative - 50 Darryl/mcLNOMS HealthcareClarity, UACloudyNOMS Healthcare Color, UAYellowNOMS HealthcareGlucose, UANegativeNegative - 2000(110) ++++ mg/dL N[facility]S HealthcareInterpretation and review of laboratory resultsAbnormalNOPR HealthcareKetones, UANegativeNegative - 160(16) ++++ mg/dLNOMS Healthcare Leukocytes, UA3+Negative - 500+++ Obdulio/mcLNOMS HealthcareNitrite, UAPositive Negative - PositiveNOMS HealthcarepH, UA55 - 9NOMS HealthcareProtein, UA2+ Negative - 2000(20) ++++ mg/dLNOMS HealthcareSpec Grav, UA1.021 - 1.03NOMS HealthcareUrobilinogen, UA1.00.2 - 12 mg/dLNOMS HealthcareNOMS Healthcare Laboratory - Microbiology and Antimicrobial susceptibilityon 01-15-2025 SARS-CoV-2 (COVID-19) RNA MICHAEL+probe Ql (Unsp spec)NegativeNOPR HealthcareNo Panel Informationon 81-84-9933OYT APositiveNOMS HealthcareFLU BNegativeNOMS HealthcareInterpretation and review of laboratory resultsAbnoHelen M. Simpson Rehabilitation Hospital NOMS HealthcareCALCIUMon 53-57-4380Hqgvffb [Mass/Vol]9.8 mg/dLNormal8.5-10.5 [facility] HospitalComment on above:Performed By: #### 57585-1 #### [facility] ([id number]) [address] [place], [place] [address]Socdaihdoj macro (dipstick) panel (U)on 41-62-5769Clnyyfupa, UA NegativeNegative - 4(70) +++ mg/dLNOMS HealthcareBlood, [...] 12 mg/dLNOMS HealthcareNOMS HealthcareCT BRAIN WO CONTon 01-99-7608UD BRAIN WO CONTCT BRAIN WO CONT CT [...] Finalized by Dharmesh Mittal on 12/23/2024 8:53 [facility] HospitalCT CERVICAL SPINE WO CONTon 26-73-0553GP CERVICAL SPINE WO CONTCT CERVICAL SPINE WO [...] Finalized by Dharmesh Mittal on 12/23/2024 8:44 [facility] HospitalCT KNEE RT WO CONTon 30-17-3684CQ KNEE RT WO CONTCT KNEE RT WO [...] Maria C Singh MD on 12/23/2024 9:54 PMNWexner Medical CenterXR CHEST 1 VWon 47-06-0396WD CHEST 1 VWXR CHEST 1 VW XR [...] by Eileen Negrete MD on 12/23/2024 8:36 PMNWexner Medical CenterXR HIP RT 2-3 VIEWS W OR WO PELVISon 67-38-0117WZ HIP RT 2-3 VIEWS W OR WO PELVISXR HIP RT 2-3 VIEWS W OR WO PELVIS EXAM: XR HIP RT 2-3 VIEWS W OR WO PELVIS CLINICAL INDICATIONS: fall, R hip pain FINDINGS/IMPRESSION: No acute fracture or traumatic malalignment. Mild degenerative changes of the bilateral hips. Postoperative changes in the lumbar spine. Clips in the pelvis. Finalized by Dharmesh Mittal on 12/23/2024 8:41 PMNWexner Medical CenterXR KNEE RT 3 VWSon 16-38-5609GM KNEE RT 3 VWSXR KNEE RT 3 [...] Finalized by Dharmesh Mittal on 12/23/2024 8:56 PMNWexner Medical CenterXR SHOULDER RT MIN 2 VWSon 52-79-9511NU SHOULDER RT MIN 2 VWSXR SHOULDER RT [...] by Eileen Negrete MD on 12/23/2024 8:31 PMNWexner Medical CenterLaboratory - Miscellaneous testson 15-44-6454Lakmzsl comment (Unsp spec) [Interp]NOMS HealthcareComment on above:This urine was analyzed for the presence of WBC, RBC, bacteria, casts, and other formed elements. Only those elements seen were reported. No Panel Informationon 74-89-0355Wjijnsmqri Organization Information Site ID: QPT Name: [employer] [facility] Address: [address] [place] [address], [address] [place] [phone] Director: Angel Noble MDNOMS HealthcareNOMS HealthcareUrinalysis complete panel (U)on 78-59-2683Irbnxnkwpc (U)TURBIDAbnormalCLEARNOMS HealthcareBacteria LM.HPF (Urine sed) [#/Area]MANYAbnormalNONE SEEN [...] (U)6.5 [pH]5.0 - 8.0NOMS HealthcareProtein Ql (U)TRACEAbnormal NEGATIVENOPR HealthcareRBC LM.HPF (Urine sed) [#/Area]0-2< OR = 2 /HPFNOMS HealthcareSpecific gravity (U) [Rel density]1.0171.001 - 1.035NOMS HealthcareWBC LM.HPF (Urine sed) [#/Area]PACKEDAbnormal< OR = 5 /HPFNOMS HealthcareUrinalysis macro (dipstick) panel (U)on 36-66-9002Pydcwtewy, UANegativeNegative - 4(70) +++ mg/dLNOMS HealthcareBlood, UAPositiveNegative [...] HealthcareXR SPINE LUMBAR 2 OR 3 VWSon 63-67-6837KM SPINE LUMBAR 2 OR 3 VWS XR [...] by Britney Mendoza MD on 11/28/2024 3:13 PMNormalPremier Health [facility] Northca [facility] 90-85-8278XZZZOzblnhhey (NSCAMN) ANGELA RUTH ([id number]) 1945 F Date Time Provider Department 10/04/[address] [facility] During your visit today, we recorded the following information about you: Keenan HeartJessica 10/04/2024 3:20 PM Signed General Call Caller : Angela Contact Reason for Call : Did you speak with Dr. Hoover regarding her most recent appt? Patient requesting return call ? Yes Rose Velasquez APRN.MANAGER SOCIAL WORK 10/06/2024 10:09 AM Signed Voicemail left for Angela at [phone]. Call back number given. 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 My note was forward to Dr. Hoover for review. At this time we recommend follow up and new imaging in 1 year. Rose Velasquez, MSN, MARBLE SUPERVISOR, MANAGER SOCIAL WORK Certified Nurse Practitioner Allergies As of Date: [...] mg capsule 20 mg once daily. - nnppgnokoyjbu-smezwqqhyupkncdnhz-sheujnwjkuclg (MIDRIN) 65-100-325 mg per capsule 1 capsule [...] [M5*01/27/2018 Encounter Status:Closed by ROSE VELASQUEZ on 10/06/24NoReg[facility] Brain WO and W contrast Solo 51-45-2272XLECWKVVQI: Stable size of a RIGHT petrous ridge presumed meningioma compared to 03/02/2024. Stucco Worker: ALLYSSA Transcribe Date/Time: Sep 26 2024 2:10P Dictated by : MAUREEN PEARL MD This examination was interpreted and the report reviewed and electronically signed by: MAUREEN PEARL MD on Sep 26 2024 2:14PM [facility] DIVISION OF RADIOLOGY* * *Final Report* * * DATE OF EXAM: Sep 26 2024 12:29PM [facility] 0295 - MRI BRAIN WO/W IVCON / [...] soft tissues otherwise unremarkable. DIVISION OF RADIOLOGYProvider, [facility] [place] - 09/26/2024 * * *Final Report* * * DATE OF EXAM: Sep 26 2024 12:29PM [facility] 0295 - MRI BRAIN WO/W IVCON / [...] petrous ridge presumed meningioma compared to 03/02/2024. Stucco Worker: ALLYSSA Transcribe Date/Time: Sep 26 2024 2:10P Dictated by : MAUREEN PEARL MD This examination was interpreted and the report reviewed and electronically signed by: MAUREEN PEARL MD on Sep 26 2024 2:14PM EST Radiology Study observation (narrative)[facility] Brain WO and W contrast IVOrdered By: Ccf Provider on 35-47-3857Kjqywrdps Clinic Laboratory - Microbiology and Antimicrobial susceptibilityon 08-16-2024 SARS-CoV-2 (COVID-19) RNA MICHAEL+probe Ql (Unsp spec)NegativeNOPR HealthcareNo Panel Informationon 55-58-3224GEO ANegativeNOMS HealthcareFLU BNegativeNOPR HealthcareInterpretation and review of laboratory resultsNormalNOSt. [facility] NOM[facility] HealthcareXR Thoracic spine 3 Viewson 07-11-2024 [...] report is generated using voice recognition reporting ([employer]). On occasion PowerScribe erroneously drops words from [...] report is generated using voice recognition reporting ([employer]). On occasion PowerScribe erroneously drops words from the report or replaces the spoken word with similar sounding words. Please call with any questions/concerns regarding this report.* Dictated and transcribed 07/11/2024/tm This report has been electronically signed and approved by the interpreting radiologist. Electronically Signed Shubham Almodovar II, M.D. 2024-07-11 10:01:04 NOM[facility] HealthcareXR Thoracic spine 3 ViewsOrdered By: Shubham Almodovar on 13-96-7067YDNG Healthcare Work Phone: Urinalysis macro (dipstick) panel [...] mg/dLNOMS HealthcareNOMS HealthcareXR Thoracic spine 3 Viewson 36-33-9724Vmehtmkgt Study observation (narrative)NOM[facility] HealthcareXR CERVICAL SPINE W FLEX/EXTon 19-95-8302E[address] [address] XRay Report Signed Patient: ANGELA RUTH MR#: [id number] : 1945 Acct:[id number] Age/Sex: 78 / F ADM Date: 01/04/24 Loc: RAD Attending Dr: Ilia Galarza NP Ordering Physician: Ilia Galaraz NP Date of Service: 01/04/24 Procedure(s): XR cervical spine w flex/ext Accession Number(s): [id number] cc: BIA CAO ; Ilia Galarza NP [facility] [place] [id number] Patient Name: ANGELA RUTH MRN: [id number] date: 1945 Sex: F Assigned Patient Location: [facility] Current Patient Location: [facility] Accession/Order Number: [id number] Exam Date: 01/04/2024 14:20 Report Date: 01/04/2024 [...] Signed By: 01/04/24 1557 DD/ 1555 TD/TT: Stucco Worker:TBHRadiology, Radiologist, - 01/04/2024 [place] [address] XRay Report Signed Patient: ANGELA RUTH MR#: [id number] : 1945 Acct:[id number] Age/Sex: 78 / F ADM Date: 01/04/24 Loc: [facility] Attending Dr: Ilia Galarza NP Ordering Physician: Ilia Galarza NP Date of Service: 01/04/24 Procedure(s): XR cervical spine w flex/ext Accession Number(s): [id number] cc: BIA CAO ; Ilia Galarza NP [facility] [place] [id number] Patient Name: ANGELA RUTH MRN: [id number] date: 1945 Sex: F Assigned Patient Location: [facility] Current Patient Location: [facility] Accession/Order Number: [id number] Exam Date: 01/04/2024 14:20 Report Date: 01/04/2024 [...] M.D. Signed By: 01/04/247 DD/ 54 TD/TT: Stucco Worker: [facility] HealthcareRadiology Study observation (narrative)[facility] InstituteXR CERVICAL SPINE W FLEX/EXTOrdered By: Radiologist Radiology on 03-19-1862JCYZSt. Louis Behavioral Medicine Institute Work Phone: ct Abdomen/Pelvis w + w/o Contraston 97-09-9003SV Abdomen/Pelvis w + w/o ContrastCLINICAL INDICATION: Hematuria [...] and signed by Felix Dominguez on 12/07/2022 1159NoKettering Health – Soin Medical CenterXR HAND LEFT (MIN 3 VIEWS)on 82-58-2304BJ HAND LEFT (MIN 3 VIEWS)3 x-ray views of the left hand completed on 10/12/2022 were reviewed independently demonstrating anoblique fracture with mild comminution involving the proximal phalanx of the small finger. No significant change in overall alignment appreciated. Mild interval consolidation across the fracture site noted. Interpreted by: Matt Cowart MD Signed by: Matt Cowart MD 11/07/22 Final resultNoMemorial Health SystemXR HAND LEFT (MIN 3 VIEWS)3 xray views [...] Signed by: Matt Cowart MD 11/07/22 Final resultNoMemorial Health SystemXR Chest 2 Views*on 09-10-2022 XR Chest 2 [...] and signed by Bartolome Monson on 09/10/2022 1507NormalNoSelect Medical OhioHealth Rehabilitation Hospital - Dublinplete Blood Count with Auto Diffon 37-29-9256Cdjvivxxb (Bld) [#/Vol]0.07 10*3/uLNormal0.00-0.20[facility] HospitalComment on above:Performed By: #### CMP, CBCAD #### [facility] [address] [place], [place] [id number]/100 WBC (Bld)0.9 %NormalNoFairfield Medical Center SpecialistComment on above:Performed By: #### CMP, CBCAD #### [facility] [address] [place], [place] [id number] (Bld) [#/Vol]0.17 10*3/uLNormal0.02-0.50[facility] HospitalComment on above:Performed By: #### CMP, CBCAD #### [facility] [address], [place] [id number]/100 WBC (Bld)2.3 %NormalNoFairfield Medical Center SpecialistComment on above:Performed By: #### CMP, CBCAD #### [facility] [address], [place] [id number] distribution width (RBC) [Ratio]16.4 %High 11.0-15.0[facility] HospitalComment on above:Performed By: #### CMP, CBCAD #### [facility] [address] [place], [place] [id number] (Bld) [Volume fraction]42.9 %Horyxi02.0-47.0 [facility] SpecialistComment on above:Performed By: #### CMP, CBCAD #### [facility] [address] [place], [place] [id number] (Bld) [Mass/Vol]13.5 g/oOFyoglc85.6-15.5[facility] SpecialistComment on above:Performed By: #### CMP, CBCAD #### [facility] [address], [place] [id number] (Bld) [#/Vol]2.7 10*3/uLNormal0.9-3.9NoFairfield Medical Center SpecialistComment on above:Performed By: #### CMP, CBCAD #### [facility] [address], [place] [id number]/100 WBC (Bld)36.1 %NormalRegional Medical Center SpecialistComment on above:Performed By: #### CMP, CBCAD #### [facility] [address], [place] [id number] (RBC) [Entitic mass]27.7 lyOudwde37.0-33.0NoFairfield Medical Center SpecialistComment on above:Performed By: #### CMP, CBCAD #### [facility] [address], [place] [id number] (RBC) [Mass/Vol]31.5 g/dLLow32.0-36.0[facility] SpecialistComment on above:Performed By: #### CMP, CBCAD #### [facility] [address], [place] [id number] (RBC) [Entitic vol]88 qHXpfayv15-953Srcsbqqf [facility] SpecialistComment on above:Performed By: #### CMP, CBCAD #### [facility] [address], [place] [id number] (Bld) [#/Vol]0.8 10*3/uLNormal0.2-0.9[facility] SpecialistComment on above:Performed By: #### CMP, CBCAD #### [facility] [address], [place] [id number]/100 WBC (Bld)10.8 %[facility] SpecialistComment on above:Performed By: #### CMP, CBCAD #### [facility] [address], [place] [id number] (Bld) [#/Vol]3.7 10*3/uLNormal1.5-7.8NoFairfield Medical Center SpecialistComment on above:Performed By: #### CMP, CBCAD #### [facility] [address], [place] [id number]/100 WBC (Bld)49.2 %[facility] SpecialistComment on above:Performed By: #### CMP, CBCAD #### [facility] [address], [place] [id number] mean volume (Bld) [Entitic vol]11.00 fLNormal 7.50-12.50NoFairfield Medical Center SpecialistComment on above:Performed By: #### CMP, CBCAD #### [facility] [address], [place] [id number] (Bld) [#/Vol]246 10*3/vWXdvgwv806-638Xqatlowo [facility] SpecialistComment on above:Performed By: #### CMP, CBCAD #### [facility] [address], [place] [id number] (Bld) [#/Vol]4.88 10*6/uLNormal3.90-5.20NoFairfield Medical Center SpecialistComment on above:Performed By: #### CMP, CBCAD #### [facility] [address], [place] [id number]-BW59.1 oBHokq33.0-50.0NoFairfield Medical Center Specialist Comment on above:Performed By: #### CMP, CBCAD #### [facility] [address], [place] [id number] (Bld) [#/Vol]7.5 10*3/uLNormal3.8-11.0NoFairfield Medical Center SpecialistComment on above:Performed By: #### CMP, CBCAD #### [facility] [address], [place] [id number] Metabolic Panelon 90-10-5410Mxlzhdd [Mass/Vol] 4.2 g/dLNormal3.6-5.1[facility] SpecialistComment on above:Performed By: #### CMP, CBCAD #### [facility] [address], [place] [id number]/Globulin [Mass ratio]1.7 {ratio}Normal1.0-2.5NoThe MetroHealth SystemComment on above:Performed By: #### CMP, CBCAD #### [facility] [address], [place] [id number] [Catalytic activity/Vol]71 U/SNwwxay09-029Hdjscsph [facility] SpecialistComment on above:Performed By: #### CMP, CBCAD #### [facility] [address], [place] [id number] [Catalytic activity/Vol]12 U/LNormal6-33NoFairfield Medical Center SpecialistComment on above:Result Comment: 10/22/2021 Female reference range changed.Performed By: #### CMP, CBCAD #### [facility] [address], [place] [id number] gap [Moles/Vol]18 mmol/WZqigvj12-49Imkdjnld [facility] SpecialistComment on above:Result Comment: Effective 11/27/2019 reference range changed.Performed By: #### CMP, CBCAD #### [facility] [address], [place] [id number] [Catalytic activity/Vol]15 U/LNormal9-34NoFairfield Medical Center SpecialistComment on above:Performed By: #### CMP, CBCAD #### [facility] [address], [place] [id number] [Mass/Vol]0.33 mg/dLNormal0.30-1.20NoFairfield Medical Center SpecialistComment on above:Performed By: #### CMP, CBCAD #### [facility] [address] [place] [id number]/CREA35 RatioHigh6-22NortBlanchard Valley Health System Blanch[facility] Valley HospitalInternal Controls Manager Comment on above:Performed By: #### CMP, CBCAD #### [facility] [address] [place] [id number] [Mass/Vol]9.4 mg/dLNormal8.6-10.2[facility] SpecialistComment on above:Performed By: #### CMP, CBCAD #### [facility] [address] [place] [id number] [Moles/Vol]106 mmol/XVowkrk01-723Bblnrnbp [facility] SpecialistComment on above:Performed By: #### CMP, CBCAD #### [facility] [address], [place] [id number] [Moles/Vol]24 mmol/LBfvdwh64-01Jqvrupuu [facility] SpecialistComment on above:Performed By: #### CMP, CBCAD #### [facility] [address], [place] [id number] [Mass/Vol]0.9 mg/dLNormal0.6-1.4NortBlanchard Valley [facility] SpecialistComment on above:Performed By: #### CMP, CBCAD #### [facility] [address] [facility] [place] [id number] mL/min/1.43t8Sdrgwe>60NortBlanch[facility] SpecialistComment on above:Performed By: #### CMP, CBCAD #### [facility] [address] [place], [place] [id number] mL/min/1.81m7Rld>60NortBlanch[facility] HospitalInternal Controls Manager Comment on above:Performed By: #### CMP, CBCAD #### [facility] [address] [place] [id number] (S) [Mass/Vol]2.5 g/dLNormal1.9-3.7NortBlanchard [facility] SpecialistComment on above:Performed By: #### SANTOS, CBCAD #### [facility] [address], [place] [id number] [Mass/Vol]84 mg/yBXlgrmm66-49Bymsfjzy [facility] SpecialistComment on above:Result Comment: For FASTING Glucose --- ADA reference ranges: Normal 65-99 mg/dl Prediabetes 100-125 Diabetes >/= 126Performed By: #### CMP, CBCAD #### [facility] [address], [place] [id number] [Moles/Vol]4.3 mmol/LNormal3.5-5.5NoFairfield Medical Center SpecialistComment on above:Performed By: #### CMP, CBCAD #### [facility] [address], [place] [id number] [Mass/Vol]6.7 g/dLNormal6.1-8.1[facility] SpecialistComment on above:Performed By: #### CMP, CBCAD #### [facility] [address], [place] [id number] [Moles/Vol]143 mmol/VEsxkrx343-810Iphiiiwq [facility] SpecialistComment on above:Performed By: #### CMP, CBCAD #### [facility] [address], [place] [id number] nitrogen [Mass/Vol]33 mg/dLHigh7-25NoThe MetroHealth SystemComment on above:Performed By: #### CMP, CBCAD #### [facility] [address], [place] [id number] 01-72-9114Lhnissu [Mass/Vol]10.0 mg/dLNormal 8.4-10.2[facility] Diabetes Care CenterComment on above:Performed By: #### 1030, 1035, 4500, 4510, 4520, 4581 #### [facility] Unless Otherwise Noted [address] [place] [address] / COLA #5924/CLIA # [id number] 67-72-0764Bqiqnbvire [Mass/Vol]0.9 mg/dLNormal0.5-1.0[facility] Care CenterComment on above:Performed By: #### 1030, 1035, 4500, 4510, 4520, 4581 #### [facility] Unless Otherwise Noted [address] [place] [address] / COLA #4724/CLIA # [id number] [Mass/Vol]74.8 KgNormalEndocrine and Diabetes Care CenterComment on above:Performed By: #### 1030, 1035, 4500, 4510, 4520, 4581 #### [facility] Unless Otherwise Noted [address] [place] [address] / COLA #4724/CLIA # [id number] [Mass/Vol]64.8 ml/m1.73NormalEndocrine and Diabetes Care CenterComment on above:Performed By: #### 1030, 1035, 4500, 4510, 4520, 4581 #### [facility] Unless Otherwise Noted [address] [address] / COLA #4724/CLIA # [id number] [Mass/Vol]65.1 ml/m1.73NormalEndocrine and Diabetes Care CenterComment on above:Performed By: #### 1030, 1035, 4500, 4510, 4520, 4581 #### [facility] Unless Otherwise Noted [address] [address] / COLA #4724/CLIA # [id number] [Mass/Vol]78.7 ml/m1.73NormalEndocrine and Diabetes Care CenterComment on above:Performed By: #### 1030, 1035, 4500, 4510, 4520, 4581 #### [facility] Unless Otherwise Noted [address] [place] [address] / COLA #4724/CLIA # [id number] 81-04-9388TJ94.80 pg/mLNormal2.45-5.93 [facility] Care CenterComment on above:Performed By: #### 1030, 1035, 4500, 4510, 4520, 4581 #### [facility] Unless Otherwise Noted [address] [place] [address] / COLA #4724/CLIA # [id number] 40-42-6319Eblb T4 [Mass/Vol]1.93 ng/dLNormal 0.78-2.44[facility] Care CenterComment on above:Performed By: #### 1030, 1035, 4500, 4510, 4520, 4581 #### [facility] Unless Otherwise Noted [address] [place] [address] / COLA #4724/CLIA # [id number] 16-63-2469FWA Qn0.57 uIU/mlNormal0.47-4.68 [facility] Care CenterComment on above:Performed By: #### 1030, 1035, 4500, 4510, 4520, 4581 #### [facility] Unless Otherwise Noted [address] [place] [address] / COLA #4724/CLIA # [id number] D 25on 21-83-6200EJVOOTP D 2551.5 ng/ml Smbvxk89.0-100.0End[facility] Diabetes Care CenterComment on above:Result Comment: Deficient <20 Insufficient 20-<30 Sufficient 30-100 Potiential Toxicity >100Performed By: #### 1030, 1035, 4500, 4510, 4520, 4581 #### [facility] Unless Otherwise Noted [address] [address] / COLA #4724/ABISAI # [id number] Metabolic Profon 05-06-2018(cont.)NormalMercy Health Lorain HospitalComment on above:Result Comment: Average GFR for 70 or more years old: 75 mL/min/1.73sq mChronic Kidney Disease: <60 mL/min/1.73sq mKidney failure: <15 mL/min/1.73sq meGFR calculated using average adult body mass. Additional eGFR calculator available at:http://www.CloudAcademy/multiple_crcl_2012.htmPerformedat [address] [address] ([phone] By: #### CDP, BMP ####[address] [phone] gap14 mmol/LNormal9-17[facility] HospitalComment on above:Performed By: #### CDP, BMP ####[address] [phone] mg/dLNormal8.6-10.4[facility] HospitalComment on above:Performed By: #### CDP, BMP ####[address] [phone] mmol/LNormal 98-107[facility] HospitalComment on above:Performed By: #### CDP, BMP ####[address] [address] KG8 26 mmol/FXctqxm92-15YbfmmMercy Health Lorain HospitalComment on above:Performed By: #### CDP, BMP ####[address] [address] Gzrvgrnmqf1.91 mg/dLHigh0.50-0.90[facility] Comment on above:Performed By: #### CDP, BMP ####[address] [address] eGFR (non-black)mL/min/{1.73_m2}Normal >60[facility] HospitalComment on above:Performed By: #### CDP, BMP ####[address] [address] Glucose mass conc99 mg/zIDjmdnz63-73EtgltNorwalk Memorial HospitalComment on above: Performed By: #### CDP, BMP ####[address] [address] Potassium molar conc4.2 mmol/LNormal3.7-5.3 [facility] HospitalComment on above:Performed By: #### CDP, BMP ####[address] [address] Gdzqnx405 mmol/OUmcu229-655OibogMercy Health Lorain HospitalComment on above:Performed By: #### CDP, BMP ####[address] [address] Urea ayflrzeh18 mg/dLNormal8-23[facility] Comment on above:Performed By: #### CDP, BMP ####[address] [address] BUN/CRE RatioNOT REPORTEDNormal9-20 [facility] HospitalComment on above:Performed By: #### CDP, BMP ####[facility] [place] [address] Staging:NOT REPORTEDNormalMercy Health Lorain HospitalComment on above:Performed By: #### CDP, BMP ####[address] [phone] with Diffon 20-18-3271Hbv. Basophil0.10 k/uLNormal0.0-0.2[facility] HospitalComment on above:Result Comment: Performed at [facility] [address] [place] [address] Performed By: #### CDP, BMP ####[address] [address] Abs.Neutrophil (Seg)4.00 k/uLNormal1.3-9.1[facility] HospitalComment on above:Performed By: #### CDP, BMP ####[address] [address] Basophils/100 WBC Auto (Bld)1 %Normal0-2[facility] HospitalComment on above:Performed By: #### CDP, BMP ####[address] [address] Ersgvvbxjzw4.20 10*3/uLNormal0.0-0.4[facility] Comment on above:Performed By: #### CDP, BMP ####[address] [address] Eosinophils/100 leukocytes2 %Normal0-4 [facility] HospitalComment on above:Performed By: #### CDP, BMP ####[address] [phone] distribution width Auto Ratio (RBC)13.9 %Khtuwb34.5-14.9[facility] HospitalComment on above:Performed By: #### CDP, BMP ####[address] [place] [address] Erythrocytes (RBC)4.68 10*6/uLNormal4.0-5.2[facility] HospitalComment on above:Performed By: #### CDP, BMP ####[address] [place] [address] Hematocrit (HCT)41.8 %Pfetod37-98CjxhjMercy Health Lorain Hospital Comment on above:Performed By: #### CDP, BMP ####[address] [address] Hemoglobin mass conc (Bld)13.7 g/dL Cqrsyf51.0-16.0[facility] HospitalComment on above:Performed By: #### CDP, BMP ####[address] [address] Pnntyzstjmk2.20 10*3/uLNormal1.0-4.8[facility] Comment on above:Performed By: #### CDP, BMP ####[facility] [place] [address].[place] [address] Lymphocytes/100 mcxkbzfuje71 %Normal 24-44[facility] HospitalComment on above:Performed By: #### CDP, BMP ####[address] [address] MCH 29.3 ukYvjfeo25-70PrvvmMercy Health Lorain HospitalComcaro center on above:Performed By: #### CDP, BMP ####[facility] [place] [address] MCHC mass conc (RBC)32.8 g/eENjuces80-50FgroiMercy Health Lorain HospitalComment on above:Performed By: #### CDP, BMP ####[address] [address] FOW22.3 lNRmiyzp47-893 [facility] HospitalComment on above:Performed By: #### CDP, BMP ####[address] [address] Avkixywqr8.90 10*3/uLNormal0.1-1.3MercOhioHealth Grady Memorial HospitalComment on above:Performed By: #### CDP, BMP ####[address] [address] Monocytes/100 ihdeidfkll99 %High1-7[facility] Comment on above:Performed By: #### CDP, BMP ####[address] [address] Neutrophil (Seg)47 %Tvjalx30-06HvzbbMercy Health Lorain HospitalComment on above:Performed By: #### CDP, BMP ####[address] [address] Platelet mean volume (PMV)10.3 fLNormal6.0-12.0[facility] HospitalComment on above: Performed By: #### CDP, BMP ####[address] [address] Zkrrlpkbl904 10*3/nPLimcxo336-815EcepoMercy Health Lorain HospitalComment on above:Performed By: #### CDP, BMP ####[address] [address] WBC (Leukocytes) 8.4 10*3/uLNormal3.5-11.0[facility] HospitalComment on above:Performed By: #### CDP, BMP ####[address] [place] [address] Auto Diff PerformedNOT REPORTEDNormalMercy Health Lorain HospitalComment on above:Performed By: #### CDP, BMP ####[address] [place] [address] Erythrocyte morphologyNOT REPORTEDNormKindred HealthcareComment on above:Performed By: #### CDP, BMP ####[address] [phone] (RBC)NOT REPORTEDNormalMercy Health Lorain HospitalComment on above:Performed By: #### CDP, BMP ####[address] [place] [address] Granulocytes/100 WBC (Bld)NOT REPORTEDNormal 0.00-0.30[facility] HospitalComment on above:Performed By: #### CDP, BMP ####[address] [address] Immature granulocytes #/vol (Bld)NOT KJOKULPVQcqemw5Ujjvy[address] [place] [address] Comment on above:Performed By: #### CDP, BMP ####[address] [address] PlateletsNOT REPORTEDNormKindred HealthcareComment on above:Performed By: #### CDP, BMP ####[address] [address] WBC MorphologyNOT REPORTEDNormKindred HealthcareComment on above:Performed By: #### CDP, BMP ####[address] [phone] Vital Signs Date TimeVital SignValuePerforming OrwqqdthlUptdgjjt45-14-7596 15:07-0500Body .[address] [place], [place] 7853711-04-2025 15:07-0500Body mass index (BMI) [Ratio]25.05 kg/m[address]11-04-2025 15:07-0500Body .5 [degF]Pfo [address] [place], [place] 7853711-04-2025 15:07-0500Body iqfiib31.[address] [place], [place] 7853711-04-2025 15:07-0500Diastolic blood xnfjyzjk34 mm[Hg]Pfo [address] [place], [place] 7853711-04-2025 15:07-0500Heart rate72 /minPfo [address] [place], [place] 7853711-04-2025 15:07-0500Respiratory rate17 /minPfo [address] [place], [place] 7853711-04-2025 15:07-3451UvH5% (BldA) [Mass fraction]93 %[address]11-04-2025 15:07-0500Systolic blood bpyklpms192 mm[Hg] [address]09-26-2025 13:07-0400Body ybmrmf662.[address] [place], [place] 0526009-26-2025 13:07-0400Body mass index (BMI) [Ratio]24.61 kg/m2fo [address] [place], [place] 7853709-26-2025 13:07-0400Body dvgtinnliuo46.2 [degF][address]09-26-2025 13:07-0400Body cwumsi92.05 kgPfo 5 [facility]09-26-2025 13:07-0400Diastolic blood lesnlljb04 mm[Hg]o [address] [place], [place] 7853709-26-2025 13:07-0400Heart rate70 /minPfo [address] [place], [place] 7853709-26-2025 13:07-0400Respiratory rate16 /minPfo [address] [place], [place] 7853709-26-2025 13:07-8038DrZ9% (BldA) [Mass fraction]96 %[address]09-26-2025 13:07-0400Systolic blood kfwygbez168 mm[Hg][address]08-29-2025 13:14-0400Body xohsed492.[address] [place], [place] 0286008-29-2025 13:14-0400Body mass index (BMI) [Ratio]24.94 kg/m2Pfo 1 [facility]08-29-2025 13:14-0400Body rgmcjnzegux13.49 [degF]Pfo 1 [facility]08-29-2025 13:14-0400Body .[address] [place], [place] 0286008-29-2025 13:14-0400Diastolic blood baxqgljy35 mm[Hg]Pfo 1 [facility]08-29-2025 13:14-0400Heart rate71 /minPfo [address] [place], [place] 0286008-29-2025 13:14-0400Respiratory rate16 /minPfo [address] [place], [place] 0286008-29-2025 13:14-4832GiW5% (BldA) [Mass fraction]95 %Pfo [address] [place], [place] 0286008-29-2025 13:14-0400Systolic blood tblebxup773 mm[Hg]Pfo [address] [place], [place] 0286008-19-2025 13:02-0400Body cmBia Cao MD Work Phone: [phone] [address]Qxkrxfolns13-99-7039 13:02-0400Body mass index (BMI) [Ratio]24.16 kg/m2Bia Cao MD Work Phone: [place] [address]Thirifibkd67-55-3121 13:02-0400Body vwhwne56.87 kgBia Cao MD Work Phone: [phone] [address]Grjnzilahw01-51-9122 13:02-0400Diastolic blood otilpmxb57 mm[Hg]Bia Cao MD Work Phone: [phone] [address] StreetEixvqnjmdm12-66-4301 13:02-0400Heart rate71 /min Bia Cao MD Work Phone: [phone]) [phone] [address]ford StreetJxzkxpihfq70-38-2090 13:02-0400Respiratory rate18 /minBia Cao MD Work Phone: [phone]) [phone] [address]ford StreetAwnjydmbhk15-64-5478 13:02-5007PiB9% (BldA) [Mass fraction]98 %Bia Cao MD Work Phone: [facility] InstituteRzslsoonfo02-03-0292 13:02-0400Systolic blood kwsynerr668 mm[Hg]Bia Cao MD Work Phone: [facility] InstituteHtxmqjpwat53-73-7843 13:57-0400Body .5 cmRandall WILKINSON Work Phone: [facility]07-23-2025 13:57-0400Body mass index (BMI) [Ratio]25.6 kg/e5YkemxgoyRandall WILKINSON Work Phone: [facility]07-23-2025 13:57-0400Body sdwffo17.5 kgRandall WILKINSON Work Phone: [facility]07-23-2025 13:57-0400Diastolic blood fsesldup97 mm[Hg]Randall WILKINSON Work Phone: [facility]07-23-2025 13:57-0400Heart rate 74 /minRandall WILKINSON Work Phone: [facility]07-23-2025 13:57-0400Systolic blood mercbwne604 mm[Hg]Randall WILKINSON Work Phone: [facility]07-23-2025 12:30-0400Body dnsami429.[address] [place], [place] 0286007-23-2025 12:30-0400Body mass index (BMI) [Ratio]25.71 kg/m2Pfo [address] [place], [place] 0286007-23-2025 12:30-0400Body pmkwqsvuzmo66.5 [degF][address]07-23-2025 12:30-0400Body urlpvr58.[address] [place], [place] 0286007-23-2025 12:30-0400Diastolic blood mm[Hg]Pfo [address] [place], [place] 0286007-23-2025 12:30-0400Heart rate68 /minPfo [address] [place], [place] 0286007-23-2025 12:30-0400Respiratory rate16 /minPfo [address] [place], [place] 0286007-23-2025 12:30-2284EuC9% (BldA) [Mass fraction]98 %Pfo [address] [place], [place] 0286007-23-2025 12:30-0400Systolic blood vpihiunt105 mm[Hg] Pfo [address] [place], [place] 0286006-25-2025 10:10-0400Body .5 cmPfo 1 [facility]06-25-2025 10:10-0400Body mass index (BMI) [Ratio]25.86 kg/m2Pfo [address] [place], [place] 0286006-25-2025 10:10-0400Body ajxznfgdiyn25.81 [degF]Pfo [address] [place], [place] 0286006-25-2025 10:10-0400Body .14 kgPfo 1 [facility]06-25-2025 10:10-0400Diastolic blood mm[Hg]Pfo [address] [place], [place] 0286006-25-2025 10:10-0400Heart rate77 /minPfo [address] [place], [place] 0286006-25-2025 10:10-0400Respiratory rate16 /minPfo [address] [place], [place] 0286006-25-2025 10:10-9533RzD7% (BldA) [Mass fraction]98 %o [address] [place], [place] 0286006-25-2025 10:10-0400Systolic blood qqvpnciv215 mm[Hg]Pfo [address] [place], [place] 0286005-28-2025 13:24-0400Body vselua146.5 cmJohn Johnson MD Work Phone: [phone] [place], [place] 0286005-28-2025 13:24-0400Body mass index (BMI) [Ratio]26.31 kg/s8QmdtmmzJohn Johnson MD Work Phone: [phone] [place], [place] 0286005-28-2025 13:24-0400Body wlufxr30.27 kgJohn Johnson MD Work Phone: [phone] [place], [place] 0286005-28-2025 13:24-0400Diastolic blood mm[Hg]John Johnson MD Work Phone: [phone] [place], [place] 0286005-28-2025 13:24-0400Heart rate 73 /minJohn Johnson MD Work Phone: [phone] [place], [place] 0286005-28-2025 13:24-0400Systolic blood beydrcix153 mm[Hg]John Johnson MD Work Phone: [phone] [place], [place] 0286005-28-2025 10:18-0400Body vpopwu238.[address] [place], [place] 0286005-28-2025 10:18-0400Body mass index (BMI) [Ratio]26.48 kg/m2Pfo [address] [place], [place] 0286005-28-2025 10:18-0400Body jmywzquglfo24.1 [degF]Pfo [address] [place], [place] 0286005-28-2025 10:18-0400Body irbjnz81.[address] [place], [place] 0286005-28-2025 10:18-0400Diastolic blood rlkhgoys00 mm[Hg]Pfo [address] [place], [place] 0286005-28-2025 10:18-0400Heart rate77 /minPfo [address] [place], [place] 0286005-28-2025 10:18-0400Respiratory rate15 /minPfo [address] [place], [place] 0286005-28-2025 10:18-1644QpL1% (BldA) [Mass fraction]96 %Pfo [address] [place], [place] 0286005-28-2025 10:18-0400Systolic blood gebtmpfi373 mm[Hg] Pfo [address] [place], [place] 0286005-19-2025 13:33-0400Body avcihp146 cmBia Cao MD Work Phone: [facility] InstituteUbahrymskv08-52-0207 13:33-0400Body mass index (BMI) [Ratio]25.86 kg/m2Bia Cao MD Work Phone: [facility] InstituteVfwbftuxxg04-25-8057 13:33-0400Body ypiyki16.22 kgBia Cao MD Work Phone: [facility] InstituteIulevwsgnu26-99-3165 13:33-0400Diastolic blood ukslmznl99 mm[Hg]Bia Cao MD Work Phone: [facility] InstituteZowaqphulo74-59-8880 13:33-0400Heart rate75 /min Bia Cao MD Work Phone: [facility] InstituteNgcqauqbte29-96-1721 13:33-0400Respiratory rate18 /minBia Cao MD Work Phone: [facility] InstituteHpahfwschy64-81-3368 13:33-2713JdB3% (BldA) [Mass fraction]96 %Bia Cao MD Work Phone: [facility] InstituteEipnpkeuhv50-30-4101 13:33-0400Systolic blood tchgoheb339 mm[Hg]Bia Cao MD Work Phone: [facility] InstituteQvtgvbsnkl31-08-6440 10:37-0400Body kakeyq235.[address] [place], [place] 0286004-30-2025 10:37-0400Body mass index (BMI) [Ratio] 26.95 kg/m2fo [address] [place], [place] 0286004-30-2025 10:37-0400Body temperature 97.81 [degF]Pfo [address] [place], [place] 0286004-30-2025 10:37-0400Body .86 [address]04-30-2025 10:37-0400Diastolic blood djqcroiy73 mm[Hg]Pfo [address] [place], [place] 0286004-30-2025 10:37-0400Heart rate63 /minPfo [facility]04-30-2025 10:37-0400Respiratory rate15 /minPfo 1 [facility]04-30-2025 10:37-5399HxP4% (BldA) [Mass fraction]99 %[address]04-30-2025 10:37-0400Systolic blood ifwhrubc777 mm[Hg] o [address] [place], [place] 0286004-08-2025 14:30-0400Body mwercm744.5 cmRandall WILKINSON Work Phone: [facility]04-08-2025 14:30-0400Body mass index (BMI) [Ratio]26.89 kg/r5EewrnljaRandall WILKINSON Work Phone: [facility]04-08-2025 14:30-0400Body fwplip11.68 kgMicraoul Jauregui PA Work Phone: [facility]04-08-2025 14:30-0400Diastolic blood yskrqfyr34 mm[Hg]Randall Jauregui PA Work Phone: [facility]04-08-2025 14:30-0400Heart rate 85 /minRandall Jauregui PA Work Phone: [facility]04-08-2025 14:30-0400Systolic blood mm[Hg]Randall Jauregui PA Work Phone: [facility]03-28-2025 13:05-0400Body xtadjz324.[address] [place], [place] 0286003-28-2025 13:05-0400Body mass index (BMI) [Ratio]27.03 kg/m2Pfo [address] [place], [place] 0286003-28-2025 13:05-0400Body wwqeglggrxj71.4 [degF]Pfo [address] [place], [place] 0286003-28-2025 13:05-0400Body .[address] [place], [place] 0286003-28-2025 13:05-0400Diastolic blood ewxeqosk06 mm[Hg]Pfo [address] [place], [place] 0286003-28-2025 13:05-0400Heart rate85 /minPfo [address] [place], [place] 0286003-28-2025 13:05-0400Respiratory rate18 /minPfo [address] [place], [place] 0286003-28-2025 13:05-7842IvU5% (BldA) [Mass fraction]96 %Pfo [address] [place], [place] 0286003-28-2025 13:05-0400Systolic blood zhrwrsox715 mm[Hg] Pfo [address] [place], [place] 0286003-24-2025 08:08-0400Body wiinny095.5 Krys Dorsey MARBLE SUPERVISOR-MANAGER SOCIAL WORK Work Phone: [facility]03-24-2025 08:08-0400Body mass index (BMI) [Ratio]27.22 kg/m2Yoanna Dorsey APRN-MANAGER SOCIAL WORK Work Phone: [facility]03-24-2025 08:08-0400Body qjzfne12.5 kgYoanna Dorsey MARBLE SUPERVISOR-MANAGER SOCIAL WORK Work Phone: [facility]03-24-2025 08:08-0400Diastolic blood qqenjgys39 mm[Hg]Yoanna Dorsey MARBLE SUPERVISOR-MANAGER SOCIAL WORK Work Phone: [facility]03-24-2025 08:08-0400Heart rate 77 /minSeulalia Dorsey MARBLE SUPERVISOR-MANAGER SOCIAL WORK Work Phone: [facility]03-24-2025 08:08-0400Systolic blood uwgyjtwy384 mm[Hg]Yoanna Dorsey MARBLE SUPERVISOR-MANAGER SOCIAL WORK Work Phone: [facility]03-04-2025 16:22-0500Body cmBia Cao MD Work Phone: [facility] InstituteUwqdevywag12-55-9361 16:22-0500Body mass index (BMI) [Ratio]25.37 kg/m2Bia Cao MD Work Phone: [facility] InstituteHmobunlszi74-54-5559 16:22-0500Body temperature 97.39 [degF]Bia Cao MD Work Phone: [facility] InstituteNviqxtpwpn76-63-2081 16:22-0500Body wofdxv26.95 kgBia Cao MD Work Phone: [facility] InstituteHtlitegvra12-70-4962 16:22-0500Diastolic blood axwadcit14 mm[Hg]Bia Cao MD Work Phone: [facility] InstituteQadtxxlbva43-80-2684 16:22-0500Heart rate87 /min Bia Cao MD Work Phone: [facility] InstituteRfhsigikwr41-76-5968 16:22-0500Respiratory rate18 /minBia Cao MD Work Phone: [place] [address]Gpcbazgybx82-20-8786 16:22-5132IsX7% (BldA) [Mass fraction]96 %Bia Cao MD Work Phone: [facility] InstituteWtafgcoehs75-80-4404 16:22-0500Systolic blood rxtjvtte904 mm[Hg]Bia Cao MD Work Phone: Gay StreetMtmxxlkxnu95-05-7903 14:20-0500Body cawejk112 cm Bia Cao MD Work Phone: Gay StreetKdkoexwtqo59-58-0655 14:20-0500Body mass index (BMI) [Ratio]26.04 kg/m2Bia Cao MD Work Phone: [phone] InstituteQkrrpqljui25-93-3597 14:20-0500Body ihqgza87.68 kgBia Cao MD Work Phone: Gay StreetUotvoonpeu23-92-2731 14:20-0500Diastolic blood elzojudj56 mm[Hg]Bia Cao MD Work Phone: 1(092)523-[address] [place], [place] [address]014[address]25 14:20-0500Heart rate86 /min Bia Cao MD Work Phone: Gay StreetLrtfbkiugy44-03-2271 14:20-0500Respiratory rate18 /minBia Cao MD Work Phone: Gay StreetEvxtsraarl14-65-0252 14:20-1748FcS1% (BldA) [Mass fraction]94 %Bia Cao MD Work Phone: [phone])298-32[facility] InstituteLbwuwckpyw43-45-8158 14:20-0500Systolic blood shhgcopc717 mm[Hg]Bia Cao MD Work Phone: [phone] InstituteUbkefbjjin18-47-6449 12:54-0500Body cm [address]02-21-2025 12:54-0500Body mass index (BMI) [Ratio] 26.22 kg/m2Pfo [address] [place], [place] 0286002-21-2025 12:54-0500Body jkkwtbjwiap53.6 [degF][address]02-21-2025 12:54-0500Body xzhyhg23.13 kgPfo 1 [facility]02-21-2025 12:54-0500Diastolic blood juuzlsgp29 mm[Hg][address]02-21-2025 12:54-0500Heart rate82 /minPfo [address] [place], [place] 0286002-21-2025 12:54-0500Respiratory rate16 /minPfo [address] [place], [place] 0286002-21-2025 12:54-7205UeV6% (BldA) [Mass fraction]96 %Pfo [address] [place], [place] 0286002-21-2025 12:54-0500Systolic blood kumebdsb053 mm[Hg]Pfo [address] [place], [place] 0286002-20-2025 15:07-0500Body aspzki425 cmPfo [address] [place] [address] 01-11-2025 15:07-0500Body mass index (BMI) [Ratio]26.22 kg/m2Pfo [address] [place], [place] 0286002-20-2025 15:07-0500Body pktjwxotret37.11 [degF]Pfo [address] [place], [place] 0286002-20-2025 15:07-0500Body olgory13.[address] [place], [place] 0286002-20-2025 15:07-0500Diastolic blood mm[Hg]Pfo [address] [place], [place] 0286002-20-2025 15:07-0500Heart rate83 /minPfo [address] [place] [address] 01-11-2025 15:07-0500Respiratory rate16 /minPfo [address] [place] [address] 01-11-2025 15:07-2216RfF0% (BldA) [Mass fraction]96 %[address]02-20-2025 15:07-0500Systolic blood wqumedza547 mm[Hg]Pfo [address] [place], [place] 0286002-18-2025 13:53-0500Body cmKaterin Alvarado MD Work Phone: [facility] InstituteRxemcpiiws58-95-6857 13:53-0500Body mass index (BMI) [Ratio]26.57 kg/o2QkoateKaterin Alvarado MD Work Phone: [facility] InstituteYhbnrxsciw68-18-1006 13:53-0500Body uptevk83.04 kgKaterin Alvarado MD Work Phone: [facility] InstituteUornvjvuak04-18-2717 13:53-0500Diastolic blood mm[Hg]Katerin Alvarado MD Work Phone: [facility] InstituteMkyoswcyud51-88-9426 13:53-0500Heart rate87 /min Katerin Alvarado MD Work Phone: [facility] InstituteAbxufqzrkf84-84-3967 13:53-0500Systolic blood mm[Hg]Katerin Alvarado MD Work Phone: [facility] InstituteItjiggqjsi20-82-9747 09:30-0500Body cymebs724 cm Bia Cao MD Work Phone: [facility] InstituteQkscpbwjny63-94-4373 09:30-0500Body mass index (BMI) [Ratio]26.57 kg/m2Bia Cao MD Work Phone: [phone] InstituteYalueuotip01-00-2467 09:30-0500Body .04 kgBia Cao MD Work Phone: [phone] InstituteGaycoyspso19-56-3912 09:30-0500Diastolic blood oypoyelm71 mm[Hg]Bia Cao MD Work Phone: 1(797)699-31[facility] InstituteIjweextfoe14-14-1194 09:30-0500Heart rate85 /min Bia Cao MD Work Phone: [phone])385-57[facility] InstituteHbbtsigvcp99-32-0893 09:30-0500Respiratory rate18 /minBia Cao MD Work Phone: 1(334)369-15[facility] InstituteVdadgysnzo56-02-9150 09:30-3821LoS5% (BldA) [Mass fraction]97 %Bia Cao MD Work Phone: [phone] InstituteEiwdjiuspe10-03-4639 09:30-0500Systolic blood snyiuirb707 mm[Hg]Bia Cao MD Work Phone: [facility] InstituteDlljajsbuf40-61-6071 13:03-0500Body gowlyj470 cm Maria C Kramer MD Work Phone: [facility]01-28-2025 13:03-0500Body mass index (BMI) [Ratio]26.39 kg/m3BvuuduoMaria C Kramer MD Work Phone: [facility]01-28-2025 13:03-0500Body uahxee52.59 kgMaria C Kramer MD Work Phone: [facility]01-28-2025 13:03-0500Diastolic blood yylzpaqq74 mm[Hg]Maria C Kramer MD Work Phone: [facility]01-28-2025 13:03-0500Heart rate 86 /minMaria C Kramer MD Work Phone: [facility]01-28-2025 13:03-0500Systolic blood ozjjjoga259 mm[Hg]Maria C Kramer MD Work Phone: [facility]01-17-2025 11:49-0500Body cmBia Cao MD Work Phone: [facility] InstituteZwrkjudlzu81-62-3011 11:49-0500Body mass index (BMI) [Ratio]26.18 kg/m2Bia Cao MD Work Phone: [facility] InstituteOcuymctukz62-80-9643 11:49-0500Body pnnaga78.04 kgBia Cao MD Work Phone: [facility] InstituteCgywfkiwnj92-83-2566 11:49-0500Diastolic blood rtpzbyww52 mm[Hg]Bia Cao MD Work Phone: [facility] InstituteOvuoghjhbl78-33-4336 11:49-0500Heart rate79 /min Bia Cao MD Work Phone: [facility] InstituteFcijdwkeme20-06-0806 11:49-6839RpI6% (BldA) [Mass fraction]93 %Bia Cao MD Work Phone: [facility] InstituteJvmujqhgkq67-49-9515 11:49-0500Systolic blood avvbknxc144 mm[Hg]Bia Cao MD Work Phone: [facility] InstitutePpbebcqcan24-35-5519 11:48-0500Body mass index (BMI) [Ratio]26.55 kg/n5YcnfmyfJohn Johnson MD Work Phone: 1(748)857-[address] [place], [place] 0286001-15-2025 11:48-0500Body cecaij97.99 kgJohn Johnson MD Work Phone: 1(564)818-[address] [place], [place] 0286001-15-2025 11:48-0500Diastolic blood dbkfetbr43 mm[Hg]John Johnson MD Work Phone: 1(119)538-[address] [place], [place] 0286001-15-2025 11:48-0500Heart rate 87 /minJohn Johnson MD Work Phone: 1(620)836-[address] [place], [place] 0286001-15-2025 11:48-0500Systolic blood cdadbucp775 mm[Hg]John Johnson MD Work Phone: 1(777)758-[address] [place], [place] 0286012-09-2024 13:39-0500Body jmaess204 cmSteven Rusher DPM Work Phone: [phone]12-09-2024 13:39-0500Body mass index (BMI) [Ratio]26.18 kg/a3Kbvplz Meghan DPM Work Phone: [phone])[address]12-09-2024 13:39-0500Body .04 kgSteven Rusher DPM Work Phone: [phone] InstituteGcwihcqqhc49-06-1098 13:39-0500Body mass index (BMI) [Ratio]26.17 kg/m2Rose Velasquez APRN.MANAGER SOCIAL WORK Work Phone: 1(460) 299-201611-05-2024 13:39-0500Body kg Rose Velasquez APRN.MANAGER SOCIAL WORK Work Phone: 1(841) 233-540811-05-2024 13:39-0500Diastolic blood mm[Hg]Rose Velasquez APRN.MANAGER SOCIAL WORK Work Phone: [place] [address]-05-2024 13:39-0500Heart rate91 /min Rose Velasquez APRN.MANAGER SOCIAL WORK Work Phone: 1(191) 377-752111-05-2024 13:39-5862FdI9% (BldA) [Mass fraction]96 %Rose Velasquez APRN.MANAGER SOCIAL WORK Work Phone: 1(134) 887-378122 [address]05-2024 13:39-0500Systolic blood faednjqm915 mm[Hg]Rose Velasquez APRNStevenMANAGER SOCIAL WORK Work Phone: 1(305) 896-735809-23-2024 15:57-0400Body cm Bia Cao MD Work Phone: [place] [address]Rjkhtmgskm44-04-9546 15:57-0400Body mass index (BMI) [Ratio]26.18 kg/m2Bia Cao MD Work Phone: 1(786) 117-988772 [address] StreetVnsbkchdqt40-28-4328 15:57-0400Body pdmeku73.04 kgBia Cao MD Work Phone: [place] [address]Yvqznoabhp25-33-6347 15:57-0400Diastolic blood cdfwyamf86 mm[Hg]Bia Cao MD Work Phone: [place] [address]Eehozegumi59-66-9849 15:57-0400Heart rate88 /min Bia Cao MD Work Phone: [phone] [address]Kirsgnxegt44-81-4542 15:57-2599IaN2% (BldA) [Mass fraction]95 %Bia Cao MD Work Phone: [place] [address]Fgotjtqicb17-62-9759 15:57-0400Systolic blood wkiqcflx361 mm[Hg]Bia Cao MD Work Phone: [place] [address]Ahnaslrxch61-25-6527 11:40-0400Body puowsj050 cm Bia Cao MD Work Phone: [place] [address]Kbcynctqmm22-15-6948 11:40-0400Body mass index (BMI) [Ratio]26.43 kg/m2Bia Cao MD Work Phone: [place] [address]Loamvdmqla24-54-0431 11:40-0400Body .68 kgBia Cao MD Work Phone: [place] [address]Niuesjwjsb64-76-0015 11:40-0400Diastolic blood mm[Hg]Bia Cao MD Work Phone: [place] [address]Psojmjmkpx52-66-4368 11:40-0400Heart rate77 /min Bia Cao MD Work Phone: [facility] InstitutePpxcntqoti12-06-0437 11:40-0400Respiratory rate20 /minBia Cao MD Work Phone: [phone] [address]Duniunobxx74-16-0146 11:40-0388DdL8% (BldA) [Mass fraction]97 %Bia Cao MD Work Phone: [place] [address]Xqkvfxhpeq46-76-3265 11:40-0400Systolic blood zflexoii509 mm[Hg]Bia Cao MD Work Phone: 1(164)240-[address] [place] [address]-19-2024 15:39-0400Body gaetlw762 cm Bia Cao MD Work Phone: [phone] [address]-19-2024 15:39-0400Body mass index (BMI) [Ratio]27.1 kg/m2Bia Cao MD Work Phone: 1(018)494-[address] [place] [address]-19-2024 15:39-0400Body qyzqpu53.4 kg Bia Cao MD Work Phone: 1(613)900-[address] [place] [address]-19-2024 15:39-0400Diastolic blood zfoarpku34 mm[Hg]Bia Cao MD Work Phone: 1(985)308-[address] [place] [address]-19-2024 15:39-0400Heart rate90 /min Bia Cao MD Work Phone: [place] [address]Jzzxleqkfa35-49-3894 15:39-0400Respiratory rate18 /minBia Cao MD Work Phone: [phone] [address]Jgmmzzqdwb87-03-0684 15:39-8677KnY7% (BldA) [Mass fraction]97 %Bia Cao MD Work Phone: [phone] [address]Oaaiviinel81-88-5595 15:39-0400Systolic blood dmoffhil296 mm[Hg]Bia Cao MD Work Phone: [phone]05-14-2024 11:29-0400Body vvdjxy181 cm Donnell Hoover MD Work Phone: [facility] HospitalStcacl71-31-7981 11:29-0400Body mass index (BMI) [Ratio]27.18 kg/s7QbylkDonnell Hoover MD Work Phone: [place] Ezovjp81-29-1615 11:29-0400Body temperature 97.7 [degF]Donnell Hoover MD Work Phone: [place] Ljrqur35-09-5470 11:29-0400Body dwzdea26.6 kgDonnell Hoover MD Work Phone: [place] Xpvzfb49-90-0422 11:29-0400Diastolic blood twbjytcz37 mm[Hg]Donnell Hoover MD Work Phone: [place] Cvuxir50-34-6396 11:29-0400Heart rate80 /min Donnell Hoover MD Work Phone: [place] Flirtu75-36-6600 11:29-0400Respiratory rate 18 /minDonnell Hoover MD Work Phone: [place] Tdtjnk46-12-4247 11:29-7921SfE5% (BldA) [Mass fraction]96 %Donnell Hoover MD Work Phone: [place] Ynhtqs51-74-4916 11:29-0400Systolic blood mm[Hg]Donnell Hoover MD Work Phone: [facility] Encounters Encounter DateEncounter TypeCare ProviderFacilityStart: 11-16-0446eebkwryddkXJUX MILLERFacility:[facility] Hospitaltart: 09-25-2025 End: 95-63-8716bgxpqxwquiCbx Infusion Chair [address] [place] [address] - Medical OncologyComment on above:Osteoporosis, unspecified osteoporosis type, unspecified pathological fracture presence (Primary Dx)Start: 09-24-2025 ambulatoryJOHN HOGANBOLUProMedica [facility]field Hospital San Franciscotart: 09-19-2025 End: 53-44-8271YgrjqkVsmg F Bower MD Work Phone: [facility] HospitalComment on above:Primary insomnia; Major depressive disorder, single episode, in full remissionStart: 09-03-2025 End: 11-68-2163kzkkawobyqPuxetch Vytautas Giedraitis Facility:[facility] Start: 08-17-2025 End: 30-14-3645pdpxihthcsOld Infusion Chair 5DTh[facility]odaux [facility] OncologyComment on above:Osteoporosis, unspecified osteoporosis type, unspecified pathological fracture presence (Primary Dx)Start: 08-16-2025 ambulatoryKettering Health Greene Memorialtart: 08-06-2025 End: 83-14-4509vooqmdawdtFszofwe Vickiytautas Giedraitis MDFacility:[facility] Start: 07-25-2025 End: 28-51-6492OhdvxrJisv F Bower MD Work Phone: noBarton Memorial HospitalComment on above: Gastroesophageal reflux disease without esophagitisStart: 07-20-2025 End: 37-09-3921npbvinyinqXrh Infusion Chair 1DS[facility] - Medical OncologyComment on above:Osteoporosis, unspecified osteoporosis type, unspecified pathological fracture presence (Primary Dx)Start: 07-16-2025 End: 87-98-1178Wupgcm-up encounterJohn Johnson MD Work Phone: [facility], A Department of [facility] CenterComment on above:CalciumStart: 65-09-8088lhjmuanwdx [facility] Memorialtart: 07-10-2025 End: 94-17-1890Fcouza Devan Cao MD Work Phone: noSt. [facility] Hospital Camarillotart: 07-10-2025 End: 28-87-5343Fdmhna Devan Cao MD Work Phone: noSt. John[facility] Hospital Camarillotart: 07-10-2025 End: 68-69-2718Yzvwln outpatient visit 25 minutesBia Cao MD Work Phone: noBarton Memorial HospitalComment on above:Stage 3b chronic kidney disease (CKD) ([facility]); Major depressive disorder, single episode, in full remission ; Age-related osteoporosis without current pathological fracture ; Moderate persistent asthma without complication (HCC); Diastolic dysfunction with chronic heart failure (HCC); Chronic idiopathic constipation; Mild intermittent asthma without complication (HCC); Interstitial pulmonary disease, unspecified (HCC)Start: 07-10-2025 End: 07-50-4773nakmainklwDBWK F BOWERNot AvailableStart: 07-02-2025 End: 07-84-6879virnzsukflYgbtcgaPolina Hansen MDFacility:PM [place] Start: 06-26-2025 End: 39-99-8419zltfrkofnrBDIL BOWERNot AvailableStart: 06-26-2025 End: 68-49-0874Xjsfmlqzr encounterBia Cao MD Work Phone: NOSt. John's Hospital Camarillotart: 06-19-2025 End: 48-06-5759NlaeoyGkktjm Majors NP Work Phone: [facility] MedicineComment on above:Primary insomnia; Major depressive disorder, single episode, in full remissionStart: 06-13-2025 End: 19-99-2600Bdmgih-up encounterJohn Johnson MD Work Phone: proMedmary [facility] Adult Endocrinology, A Department of [facility] CenterComment on above:CalciumStart: 06-13-2025 End: 13-29-5743Dysmvj outpatient visit 15 minutesRandall WILKINSON Work Phone: [facility] Genito-Urinary SurgeonsComment on above:Kidney stones (Primary Dx); Urge incontinenceStart: 06-13-2025 End: 40-41-3681wghfaiolfmDWSOKEZD I MURPHYSalem [facility] Ambulatory [facility] Start: 06-13-2025 End: 47-41-8119wfkddbxmpzSze Infusion Chair [facility] - Medical OncologyComment on above:Osteoporosis, unspecified osteoporosis type, unspecified pathological fracture presence (Primary Dx)Start: 06-12-2025 ambulatoryJOHN JOHNSONDayton VA Medical Centertart: 05-16-2025 End: 34-21-2947owmcppnxzaPzv Infusion Chair 1DyoandyCharleston Area Medical Center OncologyComment on above:Osteoporosis, unspecified osteoporosis type, unspecified pathological fracture presence (Primary Dx)Start: 05-15-2025 [facility] Hospitaltart: 05-14-2025 End: 74-48-2287owdetmimbcYrscyluDov Hansen MDFacility:[facility] [place] Start: 05-08-2025 End: 55-67-1550Easqacnxd encounterHinan Alvarado MD Work Phone: noms CI ENTComment on above:outgoing referralStart: 04-23-2025 End: 98-35-2460jodtjsgbzuXnfebtaDov Hansen MDFacility:[facility] Start: 04-18-2025 End: 28-10-3131Ouozdv outpatient visit 25 minutesJohn Johnson MD Work Phone: [facility] Adult [facility], A Department of [facility] HospitalComment on above:Osteoporosis, unspecified osteoporosis type, unspecified pathological fracture presence (Primary Dx); Hypothyroidism, unspecified type; Age-related osteoporosis without current pathological fracture; Vitamin D deficiencyStart: 32-72-2876qspcwgxklwDOTVLGDSelect Medical Specialty Hospital - Akrontart: 04-18-2025 End: 12-28-3387ozkzjgdbhoOvd Infusion Chair 1Dnery [facility] - Medical OncologyComment on above:Osteoporosis, unspecified osteoporosis type, unspecified pathological fracture presence (Primary Dx)Start: 04-13-2025 [facility] HospitalStart: 04-09-2025 End: 53-56-7175Gqdnko flowsMagaly Cao MD Work Phone: noms FNR FMStart: 04-09-2025 End: 40-71-9854Igwbdm Devan Cao MD Work Phone: noms FNR FMStart: 04-09-2025 End: 28-74-4827Uwuqdx outpatient visit 25 minutesBia Cao MD Work Phone: noms FNR FMComment on above:Intractable migraine with aura without status migrainosus (CMS/HCC) (Primary Dx); Fall, subsequent encounter; Essential hypertension (CMS/HCC)Start: 04-09-2025 End: 51-97-9465qcolkealelBYEL F BOWERNot AvailableStart: 03-22-2025 End: 00-00-1762KxrjscNaro F Bower MD Work Phone: noms FNR FMComment on above:Moderate persistent asthma, unspecified whether complicated (CMS/HCC)Start: 03-21-2025 End: 77-93-2730uyyndpdoroMcg Infusion Chair 1Dnery [facility] - Medical OncologyComment on above:Osteoporosis, unspecified osteoporosis type, unspecified pathological fracture presence (Primary Dx)Start: 03-19-2025 End: 36-02-3548yhwfyuomuzNFQABQHQuincy Valley Medical Center HospitalStart: 02-27-2025 End: 73-18-2936Qswdch outpatient visit 15 minutesRandall WILKINSON Work Phone: [facility] Genito-Urinary SurgeonsComment on above:Urge incontinence (Primary Dx); Frequent UTIStart: 02-27-2025 End: 28-52-1077tqexrizrvfGDZVHMPN I MURPHYAdams County Regional Medical Center HospitalStart: 02-19-2025 End: 37-43-5818Tjrqli Casa MAS Work Phone: [facility], A Department of [facility] HospitalComment on above:Migraine without aura and without status migrainosus, not intractable (Primary Dx); Essential tremor; Cervical radiculopathy; Bilateral occipital neuralgiaEssential hypertension (CMS/HCC) (Primary Dx)Start: 02-16-2025 End: 89-19-0296upsdmkngxdXzf Infusion Chair 1Dnery [facility] Medical OncologyComment on above:Osteoporosis, unspecified osteoporosis type, unspecified pathological fracture presence (Primary Dx)Start: 02-14-2025 End: 02-34-2949oagjxfywqyCYSPMUMPeaceHealth St. John Medical Centert HospitalStart: 02-13-2025 End: 65-29-6551qdjhettmloCYQR F BOWERNot AvailableStart: 02-12-2025 End: 18-41-9499Sdwvdxccu encounterBia Cao MD Work Phone: NOGB FNR FMStart: 02-12-2025 End: 90-17-7019sabtpjbkieIUTABellevue Hospitaltart: 02-12-2025 End: 65-49-5849Ttqnrc outpatient visit 15 minutesYoanna Willian MARBLE SUPERVISOR-MANAGER SOCIAL WORK Work Phone: [facility], A Department of [facility] CenterComment on above:Migraine without aura and without status migrainosus, not intractable (Primary Dx); Essential tremor; Psychophysiological insomniaStart: 02-09-2025 End: 12-16-3224Jcllcmdto encounterBlanche SheltonVibra Hospital of [facility] - Medical OncologyStart: 02-08-2025 End: 64-15-0515Dfmaum OnlyGladys Zambrano LPNProMedica Adult Endocrinology, A Department of [facility] CenterComment on above:Osteoporosis, unspecified osteoporosis type, unspecified pathological fracture presence (Primary Dx)Start: 02-06-2025 End: 30-72-1875fpvuruftvmEPCV F BOWERNot AvailableStart: 01-31-2025 End: 39-69-8548PzvljmTdzp F Bower MD Work Phone: [facility] FNR FMComment on above:Stress incontinence of urineStart: 01-23-2025 End: 47-13-7494gxgmzbqhorGIIR F BOWERNot AvailableStart: 01-23-2025 End: 61-11-1191Ixmtlj outpatient visit 15 minutesBia Cao MD Work Phone: [facility] FNR FMComment on above:Acute bronchitis, unspecified organism (Primary Dx); Flank painStart: 01-23-2025 End: 86-78-7632Ulcfbt flowsheetBia Cao MD Work Phone: [facility] FNR FMStart: 01-23-2025 End: 41-14-1511Drklng Devan Cao MD Work Phone: NOUF FNR FMStart: 82-56-9844zlynehjzwwCFPO F BOWER [facility] HospitalStart: 01-15-2025 End: 47-09-6483Dlerbn outpatient visit 15 minutesBia Cao MD Work Phone: noms FNR FMComment on above:Influenza A (Primary Dx); Sore throat; Acute coughStart: 01-15-2025 End: 06-23-8306bejiivnpkfYUFN F BOWERNot AvailableStart: 01-15-2025 End: 52-46-6629Jdqvrd Devan Cao MD Work Phone: noms FNR FMStart: 01-15-2025 End: 52-13-3757Okgarn Devan Cao MD Work Phone: noms FNR FMStart: 01-12-2025 End: 19-11-2206bcizhmwosfXwq Infusion Chair [facility] - Medical OncologyComment on above:Osteoporosis, unspecified osteoporosis type, unspecified pathological fracture presence (Primary Dx)Start: 01-12-2025 End: 17-56-6210lepchermcrMLPE F BOWERPro[facility]ica [facility] San Franciscotart: 01-11-2025 End: 81-39-7638emezovzbodPfx Infusion Chair 1[facility] - Medical OncologyStart: 01-09-2025 End: 19-05-4185bglntbgmxtANYIJA H TIMMISNot AvailableStart: 01-09-2025 End: 71-44-4286Temvrv outpatient new 45 minutesKaterin Alvarado MD Work Phone: NOAY CI ENTComment on above:Presbylarynges (Primary Dx); HoarseStart: 01-03-2025 End: 88-94-7736KxoyivRvnh F Bower MD Work Phone: NOWO FNR FMComment on above:Mixed hyperlipidemia (CMS/HCC); AnxietyStart: 01-01-2025 End: 77-74-2922Ufwxgcw encounter procedureNoms Fnr Fm NurseNOMS FNR FMComment on above:Hematuria, unspecified typeStart: 01-01-2025 End: 83-17-0032odookjvvtnSPBC BOWERNot AvailableStart: 01-01-2025 End: 28-46-2387Zgvrjdvgb encounterBia Cao MD Work Phone: NOMS FNR FMComment on above:Acute cystitis with hematuria (Primary Dx)Start: 40-79-8740zcjotprudsBBNU F Access [facility] Daytontart: 12-26-2024 End: 21-26-0409Dheimx flowsMagaly Cao MD Work Phone: NOMS FNR FMStart: 12-26-2024 End: 57-50-0798Jsdurc Devan Cao MD Work Phone: NOPD FNR FMStart: 12-26-2024 End: 75-61-9786qmzbskcquoHEIX F BOWERNot AvailableStart: 12-26-2024 End: 05-54-0603Srmofu outpatient visit 25 minutesBia Cao MD Work Phone: NOMS FNR FMComment on above:Hoarse (Primary Dx); Primary insomnia; Major depressive disorder, single episode, in full remission ([facility]); Fall, subsequent encounter; Gastroesophageal reflux disease without esophagitisStart: 12-25-2024 End: 13-22-4890Lahhxrula encounterBia Cao MD Work Phone: NOSD FNR FMStart: 12-23-2024 End: 90-75-5460Jmjvrhvka department patient visitBIA ALVARADOCleveland Clinic Lutheran Hospitaltart: 12-22-2024 End: 11-01-4506Aemwxd Med Johnson MD Work Phone: proMedhdf Adult Endocrinology, A Department of [facility] CenterComment on above:Osteoporosis, unspecified osteoporosis type, unspecified pathological fracture presence (Primary Dx)Start: 12-19-2024 End: 29-09-8083Tpvtdx outpatient visit 15 minutesMaria C Kramer MD Work Phone: [facility] Genito-Urinary SurgeonsComment on above:Urge incontinence (Primary Dx)Start: 12-19-2024 End: 32-27-6085nzuyspfvbwHXAXMJG G [facility] Start: 12-18-2024 End: 89-95-1713uqdakukfngXguzgsh Vytautas Giedraitis Facility:[facility] [place] Start: 12-12-2024 End: 68-60-3227ZdagsvZzkf F Bower MD Work Phone: NOMS FNR FMComment on above:Gastroesophageal reflux disease without esophagitisStart: 12-11-2024 End: 38-90-3614Pddmki OnlyBia Cao MD Work Phone: N[facility]S FNR FMComment on above:Acute cystitis without hematuria (Primary Dx)Start: 12-08-2024 End: 35-89-1462Qccola Devan Cao MD Work Phone: NOMS FNR FMStart: 12-08-2024 End: 57-58-5482Ulvlls Devan Cao MD Work Phone: N[facility]S FNR FMStart: 12-08-2024 End: 08-93-6192abnstmaesuOWCA F BOWERNot AvailableStart: 12-08-2024 End: 79-34-5639Dghuob outpatient visit 25 minutesBia Cao MD Work Phone: NOMS FNR FMComment on above:Urinary frequency (Primary Dx); Essential hypertension (CMS/HCC); Age-related osteoporosis without current pathological fracture (CMS/HCC)Start: 12-06-2024 End: 03-89-1675Hnihxt outpatient visit 25 minutesJohn Johnson MD Work Phone: [facility] Adult Endocrinology, A Department of [facility] CenterComment on above:Hypothyroidism, unspecified type (Primary Dx); Age-related osteoporosis without current pathological fracture; Vitamin D deficiencyStart: 12-06-2024 End: 08-33-3138Jorvvy Reguloyudith Juan Manuel NProMedmary [facility]ke [facility] Adult Endocrinology, A Department of [facility] CenterComment on above:Osteoporosis, unspecified osteoporosis type, unspecified pathological fracture presence (Primary Dx)Start: 11-29-2024 End: 77-65-0514DvyvhdQktk F Bower MD Work Phone: noms FNR FMComment on above:Anemia, unspecified type (Primary Dx)Start: 11-28-2024 End: 75-76-5853wouawozgckPNBMWSM [facility]IEDRAITIS [facility] HospitalStart: 11-20-2024 End: 79-06-3420chaoqbypotSjurebv Vytautas Jade GARCIAFacility:[facility] [place] Start: 11-06-2024 End: 19-11-8848ThoaxtOlnw F Bower MD Work Phone: noms FNR FMComment on above:Hyperlipidemia, unspecified hyperlipidemia type (CMS/HCC)Start: 10-30-2024 End: 27-70-6092Nwujcu flowsheetSteven A Rusher DPM Work Phone: noms PODIATRYStart: 10-30-2024 End: 09-19-3646Ghrnag flowsheetSteven A Rusher DPM Work Phone: noms PODIATRYStart: 10-30-2024 End: 07-72-7528Vrxozds encounter procedureSteven A Rusher DPM Work Phone: noms PODIATRYComment on above:Dermatophytosis of nail (Primary Dx); Dystrophic nail; Pain around toenail, right foot; Pain around toenail, left footStart: 10-30-2024 End: 78-32-3687nwnhvmncrpALNFQD A RUSHERNot AvailableStart: 10-04-2024 End: 85-83-0010Jlgtzozzo encounterTara Eddie VIEYRA Work Phone: [facility] Brain Tumor CenterComment on above:Patient QuestionStart: 09-26-2024 End: 86-57-3754Qxasoyt encounter procedureTara Eddie VIEYRA Work Phone: NeurosurgeryComment on above:Benign neoplasm of meninges (HCC) (Primary Dx); DizzinessStart: 09-26-2024 End: 67-57-9414Ygkshtcblz hospital visit by physicianMri [facility] (Lg Bore/1.5t)Radiology MRIComment on above: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]Start: 08-29-2024 End: 80-51-9362sxdnqqgmvlPQOBDAEAmerican Hospital Association PPG Start: 08-14-2024 End: 60-85-4670Ocbvye outpatient visit 15 minutesBia Cao MD Work Phone: NOMS FNR FMComment on above:Acute bronchitis, unspecified organism (Primary Dx); Seasonal allergic rhinitis due to pollenStart: 08-14-2024 End: 41-24-5174zpqagcuvptPSBN F BOWERNot AvailableStart: 08-14-2024 End: 31-64-0510Xevotm flowsMagaly Cao MD Work Phone: NOMS FNR FMStart: 08-14-2024 End: 95-03-9174Jlykxa Devan Cao MD Work Phone: NOMS FNR FMStart: 08-08-2024 End: 88-79-8805Ifilgg Devan Cao MD Work Phone: NOMS FNR FMStart: 08-08-2024 End: 79-53-8241Vzdtqn Devan Cao MD Work Phone: NOMS FNR FMStart: 08-08-2024 End: 65-17-0246Lhcyan outpatient visit 25 minutesBia Cao MD Work Phone: NOMS FNR FMComment on above:Hoarse (Primary Dx); Purulent postnasal drainage; Primary insomnia; Gastroesophageal reflux disease without esophagitisStart: 08-08-2024 End: 10-15-6041jnzwateopqEUQK F BOWERNot AvailableStart: 07-14-2024 End: 60-61-9505Yenrov Jl Cao MD Work Phone: NOMS FNR FMComment on above:Acute cystitis without hematuria (Primary Dx)Start: 07-13-2024 End: 46-23-9270spirembfiuMOMQSt. [facility] Hospital Ambulatory PPGStart: 07-11-2024 End: 45-33-7727Ytsfww Jl Cao MD Work Phone: NOMS FNR FMComment on above:Acute cystitis without hematuria (Primary Dx)Start: 07-10-2024 End: 45-31-0939Hzefnm outpatient visit 25 minutesBia Cao MD Work Phone: noms FNR FMComment on above:Urinary frequency (Primary Dx); Dysuria; Chronic idiopathic constipation; Chronic right-sided thoracic back painStart: 07-10-2024 End: 92-08-6067Mxteii flowsMagaly Cao MD Work Phone: NOMS FNR FMStart: 07-10-2024 End: 54-57-3762Etudzy Devan Cao MD Work Phone: NOMS FNR FMStart: 24-57-8812Fvmwdh Rob Hoover MD Work Phone: bformerly [facility] Brain Tumor CenterComment on above: Intracranial meningioma (HCC) (Primary Dx); Benign neoplasm of meninges (HCC)Start: 04-04-2024 End: 21-51-8167Qywiwad encounter procedureDonnell Hoover MD Work Phone: bformerly [facility] Brain Tumor CenterComment on above: Intracranial meningioma (HCC) (Primary Dx); Sensorineural hearing loss (SNHL) of right ear, unspecified hearing status on contralateral side; DizzinessStart: 81-78-9186Cawffdjbx encounterNeurology ProviderNeurologyComment on above:Received Outside Medical Records (External referral to Neurological [place]/); triage; Nurse Triage Call; AppointmentStart: 01-06-2024 End: 03-53-9516oqtuquqdazAmohiutc Wright [employer] OFFICER Work Phone: NOMS FB PTComment on above:General weakness (Primary Dx); History of fallingStart: 08-84-5915Vgevqk Kashmir Snyder [employer]S OFFICER Work Phone: NOUM FB PTStart: 01-04-2024 End: 94-17-6090Cbzhma Kashmir Snyder [employer]UNITY [employer]S OFFICER Work Phone: NOMS FB PTStart: 01-04-2024 End: 25-18-9859Ietglnrpx Result EncounterGeneric External Data ProviderNOMS External Department UnsolicitedStart: 01-04-2024 End: 48-29-9471xyfquzvksvNznctkmm Wright [employer] OFFICER Work Phone: NODA FB PTComment on above:General weakness (Primary Dx); History of fallingStart: 70-67-5986UcjjuwQjbs F Bower MD Work Phone: NOVH FNR FMComment on above:Mixed hyperlipidemia (CMS/HCC) (Primary Dx); Stress incontinence of urineStart: 57-45-4234Udizv Flores Salazar PT Work Phone: NOWJ FB PTStart: 12-23-2023 End: 29-99-7780tgliarwxfxClebdjfu Wright COMMUN[employer] OFFICER Work Phone: noms FB PTComment on above:General weakness (Primary Dx); History of fallingStart: 10-12-2022 End: 61-71-0297zrwzecikdxOAOTMercy Health Perrysburg Hospitaltart: 09-28-2022 End: 01-36-6849dflohzcydyJFXEOhio Valley Hospitaltart: 05-16-2018 End: 72-00-2490LbmmnwvciuATKVEZC J MORSEMtrinity health system west campusoracio [facility] Medical Centertart: 05-06-2018 End: 43-31-6410TqbdikczbuLUZC HOELZLSt. Mary's Medical Center, Iront[place] Campustart: 05-02-2018 Patient encounter statusJohn Johnson MD Work Phone: [facility] Work Phone: Procedures DateProcedureProcedure DetailPerforming ClinicianStart: 76-78-8045Hmlifz-up visitFollow-upMICHELLE I JUVENTINOStart: 96-76-7678Sjvei dip stick/tablet rgnt auto w/o microscopyMichelle I Juventino WILKINSON Work Phone: Start: 43-89-1528Zmyla depression screening assessment Yoanna Dorsey MARBLE SUPERVISOR-MANAGER SOCIAL WORK Work Phone: Start: 76-68-3065Czjmp dip stick/tablet rgnt non-auto w/o micrscRolly Cao MD Work Phone: Start: 14-34-4534EZOAUA COVID-19/Farhat Cao MD Work Phone: Start: 58-79-2799Muxvu dip stick/tablet rgnt non-auto w/o micrscpBreann Majors [employer]QU[employer] SERVER ON CALL Work Phone: Start: 36-41-3365Ondbwtx bacterial quanttative colony count Maria G Cao MD Work Phone: Start: 70-61-0728UEIGYjlx F Bower MD Work Phone: Start: 12-08-2024 End: 92-92-3143Akect dip stick/tablet rgnt non-auto w/o micrscRolly Cao MD Work Phone: Start: 75-11-5059Iugjgu-up visitFollow-upJOHN JOHNSONStart: 17-89-5526Obl brain brain stem w/o w/contrast materialPashantanu Hoover MD Work Phone: start: 48-94-7344TYGCKQ COVID-19/Farhat Cao MD Work Phone: Start: 38-49-6706Aqjrh depression screening assessment John Johnson MD Work Phone: start: 90-20-0467Yiplm dip stick/tablet rgnt non-auto w/o micrscpMary Anny Cao MD Work Phone: Start: 63-76-6016WK CERVICAL SPINE W FLEX/EXTGeneric External Data ProviderStart: 40-40-8184RNGQIYCWO PATIENTMARK DAYTON OSTEOPATHIC HOSPITALEStart: 61-18-8461VIMZIHEADRS [facility] OSTEOPATHIC HOSPITALEStart: 74-28-8368Uoezxftvus pulse oximetryMARK [facility] OSTEOPATHIC HOSPITALEStart: 36-36-0168XOMMJHFRO DEEP BREATHING AND COUGHINGMARK DAYTON OSTEOPATHIC HOSPITALEStart: 78-13-5521JVFXLJ PHYSICIAN (SPECIFY)LENNY JESSICAEStart: 47-41-5151SAXSEKT COMMUNICATIONMARK [facility]TON OSTEOPATHIC HOSPITALEStart: 79-18-5231EBFXVCXU OXYGEN THERAPY PROTOCOLMARK [facility] OSTEOPATHIC HOSPITALEStart: 72-85-1090KCIMYU PERIPHERAL IVMARK [facility]ATHIC HOSPITALEStart: 47-13-0931QJIPT SIGNSMARK [facility] HOSPITALEStart: 14-68-4920Vrpyg metabolic panel calcium totalMARK [facility] OSTEOPATHIC HOSPITALEStart: 69-27-9235Fvngq count complete auto&auto difrntl wbcMARK ST[facility] Plan of Treatment DateCare ActivityDetailAuthorStart: 20-99-0900Nckaofvh ScreeningDiabetes ScreeningMercy Health West Hospitaltart: 37-91-9241Mfevrcf ScreeningTobacco Screening [facility] SystemStart: 27-39-3228Domtkvd ScreeningTobacco Screening [facility] SystemStart: 62-93-0615Xmwerqc ScreeningTobacco Screening [facility] SystemStart: 18-11-0090Hqhafmp ScreeningTobacco Screening [facility] SystemStart: 02-26-2026 End: 73-84-9930Cegjvsg encounter ysnlgbiqz18/07/2026 1:00 PM EDT Office Visit [facility] [address] [place] [phone] Maria C Kramer MD [address] [place] [address] [facility]ito-Urinary SurgeonsStart: 81-30-0476Hhdblqk ScreeningTobacco ScreeningPremier Health [facility] Northca Health SystemStart: 35-10-0114Sesfegcztf ScreeningDepression ScreeningCincinnati Shriners Hospital SystemStart: 69-66-1674Ktdz Risk ScreeningFall Risk ScreeningCincinnati Shriners Hospital SystemStart: 88-05-9903Siiykez ScreeningTobacco ScreeningPremier Health [facility] Northca [facility] SystemStart: 01-14-2026 End: 12-77-4908CI Abdomen APX-ray abdomen ap 1 view Imaging Routine Kidney stones Expected: 01/14/2026, Expires: 06/13/2026[facility] Work Phone: Comment on above:Expected: 01/14/2026, Expires: 06/13/2026Start: 92-49-1178Ycopqqt ScreeningTobacco ScreeningCincinnati Shriners Hospital SystemStart: 27-82-3106Xrwrfzn ScreeningTobacco ScreeningCinc[facility] Sh[facility]ers [facility] Start: 82-26-4321Vsdljua ScreeningTobacco ScreeningCincinnati Shriners Hospital SystemStart: 11-07-2025 End: 46-62-6780Bfpiuau encounter fknrsefsy14/17/2025 1:40 PM EST Office Visit [facility] [address] [place] [phone] Bia Cao MD [address] [place], [place] [phone] [facility] Hospitaltart: 10-26-2025 End: 11-81-8622ubmpcxiuiv98/05/2025 1:30 PM EST Infusion Meggan Harrison [facility] - Medical Oncology [address] [place] [phone] Meggan Harrison [facility] - Medical OncologyStart: 09-21-2025 End: 10-44-7199ockaqpcsmz46/31/2025 1:00 PM EDT Infusion Meggan Harrison [facility] - Medical Oncology [address] [place] [address] [facility] - Medical OncologyStart: 08-17-2025 End: 71-62-2833wpjrepyikl60/26/2025 1:00 PM EDT Infusion Meggan Harrison [facility] - Medical Oncology [address] [place] [phone] Meggan Harrison [facility] Medical OncologyStart: 08-16-2025 End: 08-54-7223Khgipgz encounter procedurePeoples Hospital Neurology, A Department of [facility] Hospitaltart: 83-42-1413RXHMQ-19 Vaccine ( season) COVID-19 Vaccine ()[facility] SystemStart: 07-23-2025 COVID-19 Vaccine ()COVID-19 Vaccine () [facility] SystemStart: 28-85-1016QTUDA-19 Vaccine () COVID-19 Vaccine ()[facility] HealthcareStart: 64-47-4662Hfcnertca vaccinationCincinnati Shriners Hospital SystemStart: 58-18-9729Lyqhonmhfy Screening Depression ScreeningOur Community Hospitaltart: 07-11-2025 End: 31-39-3477riaxjldgqh30/20/2025 12:00 PM EDT Infusion Meggan Harrison [facility] - Medical Oncology [address] [place] [address] Meggan Harrison [facility] Medical OncologyStart: 07-10-2025 End: 149042-jndiiqhroptbbe D3 [Mass/volume] in Serum or PlasmaVitamin D 25 hydroxy Lab Routine Age-related osteoporosis without current pathological fracture Expected: 07/10/2025 (Approximate), Expires: 07/10/2026NOSt. Louis Behavioral Medicine Institute Comment on above:Expected: 07/10/2025 (Approximate), Expires: 07/10/2026Start: 07-10-2025 End: 08-44-2371UJL W Auto Differential panel - BloodCBC and differential Lab Routine Stage 3b chronic kidney disease (CKD) ([facility]-HCC) Major depressive di sorder, single episode, in full remission Expected: 07/10/2025 (Approximate), Expires: 07/10/2026[facility] Work Phone: Comment on above:Expected: 07/10/2025 (Approximate), Expires: 07/10/2026Start: 07-10-2025 End: 84-06-7317Pujawanazyumd metabolic 2000 panel - Serum or PlasmaComprehensive metabolic panel Lab Routine Stage 3b chronic kidney disease (CKD) ([facility]-HCC) Expected:07/10/2025, Expires: 07/10/2026N[facility] HealthcareComment on above: Expected: 07/10/2025, Expires: 07/10/2026Start: 07-10-2025 End: 43-22-7416Epdmvhf encounter procedureNOMS FNR FMComment on above:Arrived Start: 06-13-2025 End: 26-37-7481Yudeohj encounter etmxpkswv07/23/2025 2:00 PM EDT Office Visit [facility] [address] [place] [phone] Randall Jauregui I, PA [address] [place] [address] [facility] Genito-Urinary SurgeonsStart: 06-13-2025 End: 79-79-3888dghaiswzak01/23/2025 12:30 PM EDT Infusion Meggan Harrison [facility] - Medical Oncology [address] [place] [phone] Meggan Harrison [facility] - Medical OncologyStart: 44-63-9339Hsvguihli vaccinationInfluenza Vaccine (#1)[facility] HealthcareComment on above:Postponed from 07/23/2024 (Other Medical Reasons)Start: 05-16-2025 End: 71-43-4697ztnclcizzs65/25/2025 10:30 AM EDT Infusion Meggan Harrison [facility] - Medical Oncology [address] [place] [phone] Meggan Harrison [facility] - Medical OncologyStart: 01-24-9029XCBLD-19 Vaccine ( season)COVID-19 Vaccine ()[facility] SystemStart: 04-18-2025 End: 72-15-4388DYP Skeletal system Views for bone densityDexa scan central skeletal Imaging Routine Osteoporosis, unspecified osteoporosis type, unspecifiedpathological fracture presence Expected: 04/18/2025, Expires: 04/18/2026[facility] Work Phone: comment on above:Expected: 04/18/2025, Expires: 04/18/2026Start: 04-18-2025 End: 65-12-4302Vxksqar encounter phtawzlck65/28/2025 1:30 PM EDT Office Visit [facility], A Department of [facility] [address] [facility] [place] [phone] John Johnson MD [address] [facility] [place], [place] [phone] [facility]ology, A Department of [facility] Hospitaltart: 04-18-2025 End: 42-91-5870xsedkrkwam82/28/2025 10:30 AM EDT Infusion Meggan Harrison [facility] - Medical Oncology [address] [place] [phone] Meggan Harrison [facility] - Medical OncologyStart: 04-09-2025 End: 69-56-1210Udtdhow encounter procedureNOMS FNR FMComment on above:Arrived Start: 04-09-2025 End: 84-73-7315jwkigblata93/19/2025 1:00 PM EDT Infusion Meggan Harrison [facility] - Medical Oncology [address] [place] [phone] Meggan Harrison [facility] - Medical OncologyStart: 04-06-2025 End: 03-11-8286Suuvnfl encounter gxchftozc14/16/2025 10:30 AM EDT Office Visit [facility] [address] [place] [phone] Corey Corbett, DO [address] [facility], [address], [address] [place], [place] [phone] [facility] MedicineStart: 03-12-2025 End: 69-20-1258rwnfegtgey03/21/2025 1:30 PM EDT Infusion Meggan Joeln [facility] - Medical Oncology [address] [place] [phone] Meggan Harrison [facility] Medical OncologyStart: 59-74-6686Mcyo Risk ScreeningFall Risk ScreeningOur Community Hospitaltart: 03-09-2025 End: 11-09-1708dqmtpyuehu83/18/2025 1:00 PM EDT Infusion Meggan Harrison [facility] - Medical Oncology [address] [place] [phone] Meggandaphne Joeln [facility] Medical OncologyStart: 02-27-2025 End: 21-40-5749Jmogmva encounter offnwlzks67/08/2025 2:30 PM EDT Office Visit [facility] [address] [place] [address] Randall Jauregui PA [address] [place] [address] [facility]-Ur[facility] SurgeonsStart: 02-16-2025 End: 03-67-8289qckuvbyhst62/28/2025 1:00 PM EDT Infusion Meggan Joeln [facility] - Medical Oncology [address] [place] [phone] Meggan Joeln [facility] Medical OncologyStart: 02-13-2025 End: 39-53-0961Lzbieoflkqpv / ancillary services vzvoxfsksv90/25/2025 2:00 PM EDT Ancillary Procedure [facility] [address] [place] [phone] [facility] FNR CTStart: 02-12-2025 End: 71-84-7516Jgbxdhj encounter procedureProMedica Neurology, A Department of [facility] Centertart: 02-09-2025 End: 16-74-9860quawxrhovv76/21/2025 2:00 PM EDT Infusion Meggan Harrison [facility] - Medical Oncology [address] [place] [address] Meggan Harrison [facility] Medical OncologyStart: 02-08-2025 End: 96-42-7851qewchcxzqn85/20/2025 2:00 PM EDT Infusion Meggan Harrison [facility] Medical Oncology [address] [place] [phone] Meggan Harrison [facility] Medical OncologyStart: 02-06-2025 End: 78-78-7785Xsvxftq encounter cvektuuho73/18/2025 9:20 AM EDT Office Visit [facility] FNSahra THAKKAR [address] [place] [phone] Bia Cao MD [address] [place], [place] [phone] [facility] FNSahra FMStart: 01-23-2025 End: 29-50-2379Mupiuadx identified in Urine by CultureUrine culture (clean catch) Microbiology Routine Flank pain Expected: 01/23/2025 (Approximate), Expi res: 01/23/2026NOPR HealthcareComment on above:Expected: 01/23/2025 (Approximate), Expires: 01/23/2026Start: 01-23-2025 End: 48-84-4114Lujareufjm complete panel - UrineUrinalysis with reflex microscopic (clean catch) Lab Routine Flank pain Expected: 01/23/2025 (Approx imate), Expires: 01/23/2026[facility] Work Phone: Comment on above:Expected: 01/23/2025 (Approximate), Expires: 01/23/2026Start: 01-18-2025 End: 00-71-8643Cbaolbk encounter clrtzboov41/27/2025 11:00 AM EST Office Visit [facility] [address] [place] [address] Yoanna Dorsey, MARBLE SUPERVISOR-MANAGER SOCIAL WORK [address] [place] [address] [facility] Adult NeurologyStart: 01-17-2025 End: 23-88-5018Mwvhhhq encounter procedureProMedica Physicians Genito-Urinary SurgeonsStart: 01-15-2025 End: 95-68-9069Jrztyjj encounter twwqgqiiy42/24/2025 2:20 PM EST Office Visit [facility] [address] [place] [phone] Bia Cao MD [address] [place], [place] [phone] ArrivedBEEBE MEDICAL CENTERR FMComment on above:ArrivedStart: 01-12-2025 End: 15-12-7957lexfwrllbx61/21/2025 2:20 PM EST Infusion Meggan L [facility] - Medical Oncology [address] [place] [phone] Meggan L [facility] - Medical OncologyStart: 01-09-2025 End: 18-66-9104Cecymfi encounter efhicwmot06/18/2025 1:40 PM EST Office Visit [facility] [address] [facility] [address] [place] [phone] Katerin Alvarado MD [address] [facility] [address] [place] [address] [facility] CI ENTStart: 01-01-2025 End: 65-15-0767Jhngwwhb identified in Urine by CultureUrine culture (clean catch) Microbiology Routine Hematuria, unspecified type Expected: 01/01/2025 (A pproximate), Expires: 01/01/2026[facility] Work Phone: Comment on above:Expected: 01/01/2025 (Approximate), Expires: 01/01/2026Start: 01-01-2025 End: 86-04-5104Ruiutsx encounter /10/2025 1:30 PM EST Office Visit [facility] FM [address] [facility] [place] [phone] [facility] FNR FMStart: 12-26-2024 End: 72-14-8643Dxylltc encounter /04/2025 9:20 AM EST Office Visit [facility] [address] [facility] [place] [phone] Bia Cao MD [address] [facility] [place], [place] [phone] [facility] FNR FMStart: 12-19-2024 End: 78-17-4897Rtcpvis encounter oddrbhjtz06/28/2025 12:45 PM EST Office Visit [facility] [address] [place] [phone] Maria C Kramer MD [address] [place] [address] [facility]-Ur[facility] SurgeonsStart: 12-08-2024 End: 23-20-7620Rroswtu encounter vopqbxwti18/17/2025 11:40 AM EST Office Visit [facility] [address] [facility] [place] [phone] Bia Cao MD [address] [facility] [place] [address] [facility] FNR FMStart: 01-15-2025Medicare Annual Wellness (AWV)Medicare Annual Wellness (AWV)[facility] HealthcareStart: 10-30-2024 End: 57-22-7997Pozuvpd encounter yklnxjsso04/09/2024 1:45 PM EST Office Visit [facility] [address] [place] [phone] Santo Christianson DPM [address] [place] [address] ArrivedNOMS FH PODIATRYComment on above:ArrivedStart: 08-28-2024 End: 47-86-6384NE Brain WO and W contrast IVMRI BRAIN WO/W IVCON Radiology Routine Benign neoplasm of meninges (HCC) Expected: 08/28/2024 (Approximate), Expires: 06/08/2025[facility] Work Phone: comment on above:Expected: 08/28/2024 (Approximate), Expires: 06/08/2025Start: 08-14-2024 End: 73-16-6247Oxuxfcx encounter xnawldjdo21/23/2024 4:00 PM EDT Office Visit [facility] FM [address] [place] [phone], Mary F, MD [address] [place] [address] ArrivedNOPR FNR FMComment on above:ArrivedStart: 08-08-2024 End: 68-34-4270Iycrskm encounter qcnljodsi73/17/2024 11:40 AM EDT Office Visit [facility] [address] [place] [address] [phone] Bia Cao MD [address] [place] [address] ArrivedNOMS FNR FMComment on above:ArrivedStart: 08-04-2024 End: 67-32-4310Cjekrkb encounter cgrhjospe67/13/2024 11:00 AM EDT Office Visit [facility] [address] [place] [address] [phone] Bia Cao MD [address] [place] [address] [facility] FNR FMStart: 44-58-5536Yepfg-19 Vaccine ()Covid-19 Vaccine ()[facility]: 97-97-5569Ybcjyjwuc vaccinationMercy Health West Hospitaltart: 07-10-2024 End: 52-20-6920Gemwkqj encounter ujozkdcao60/19/2024 3:40 PM EDT Office Visit [facility] [address] [place] [address] Bia Cao MD [address] [place] [address] ArrivedNOMS FNR FMComment on above:ArrivedStart: 07-10-2024 End: 68-35-2358Rxhjyrmu identified in Urine by CultureUrine culture (clean catch) Microbiology Routine Dysuria Expected: 07/10/2024 (Approximate), Expires: 07/10/2025[facility] Work Phone: Comment on above:Expected: 07/10/2024 (Approximate), Expires: 07/10/2025Start: 07-10-2024 End: 54-40-9250Iyozdsqzla complete panel - UrineUrinalysis with reflex microscopic (clean catch) Lab Routine Dysuria Expected: 07/10/2024 (Approxima te), Expires: 07/10/2025[facility] HealthcareComment on above:Expected: 07/10/2024 (Approximate), Expires: 07/10/2025Start: 40-09-9364Pejogetkr vaccination Influenza Vaccine (#1)[facility] HealthcareComment on above:Postponed from 07/23/2023 (Patient Refused)Start: 04-04-2024 End: 04-23-0097Lcknodw encounter hiwmdjsmv98/14/2024 10:30 AM EDT Office Visit [facility] [address] [place] [address] Donnell Hoover MD [address] [place] [address] Time Frame: First availableConerly [facility] Comment on above:Time Frame: First availableStart: 04-03-2024 End: 33-40-6020Qsjnbxn encounter oepvnezwy18/13/2024 11:20 AM EDT Office Visit [facility] [address] [place] [address] Bia Cao MD [address] [place] [address] NOM[facility] FNR FMStart: 01-20-2024 End: 34-17-4713ptpjwsnzxv78/29/2024 11:00 AM EST Treatment [facility] [address] [place] [address] Jonny Salazar, PT [address] [place] [address] [facility]OM[facility] FB PTStart: 01-18-2024 End: 94-94-0736qskchiouox93/27/2024 11:30 AM EST Treatment [facility] [address] [place] [address] Ria Snyder, [employer] OFFICER [address] [place] [address] NOMS FB PTStart: 01-14-2024 End: 78-53-0507qwaujqnitc80/23/2024 1:00 PM EST Treatment [facility] [address] [place] [address] Ria Snyder, [employer] OFFICER [address] [place] [address] NOMS FB PTStart: 01-12-2024 End: 85-40-0787ohpyevgdtx61/21/2024 12:30 PM EST Treatment [facility] [address] [place] [address] Ria Snyder, COMM[employer] OFFICER [address] [place] [address] NOMS FB PTStart: 01-06-2024 End: 97-12-5134drwnhnyurfZFAD FB PTStart: 01-04-2024 End: 39-20-8368sdehfmwbty00/13/2024 11:30 AM EST Treatment [facility] [address] [place] [address] Ria Snyder, COMM[employer] OFFICER [address] [place] [address] NOMS FB PTStart: 12-31-2023 End: 12-87-0210uhzdnkfiwt89/09/2024 10:00 AM EST Treatment [facility] [address] [place] [phone] Ria Snyder, COMM[employer] OFFICER [address] [place] [address] NOMS FB PTStart: 12-30-2023 End: 95-00-1436rmaialxaif11/08/2024 11:30 AM EST Treatment [facility] [address] [place] [phone] Jonny Salazar, PT [address] [place] [address] NOMS FB PTStart: 12-28-2023 End: 51-86-1485hsitrvrgbd73/06/2024 11:30 AM EST Treatment [facility] PT [address] [place] [phone] Ria Snyder, COMM[employer]ITY [employer] OFFICER [address] [place] [address] NOMS FB PTStart: 68-40-9864Mvnemyp Directive DiscussionAdvance Directive DiscussionMercy Health West Hospitaltart: 46-59-7017Brymqwmmuj Health ScreeningBehavioral Health Screening [facility]: 51-27-1501Epijh-19 Vaccine ()Covid-19 Vaccine ()[facility]: 16-94-8604VCjE,Tdap and Td Vaccines (2 - Td or Tdap)DTaP,Tdap and Td Vaccines (2 - Td or Tdap)[facility]: 56-31-1793FIW Vaccine (1 - 1-dose 75+ series)RSV Vaccine (1 - 1-dose 75+ series)[facility]: 88-03-9727TDkN/Tdap/Td Vaccines (2 - Tdap)DTaP/Tdap/Td Vaccines (2 - Tdap)[facility] InstituteStart: 03-39-5882QEzN,Tdap and Td Vaccines (1 - Tdap)DTaP,Tdap and Td Vaccines (1 - Tdap)[facility]: 97-95-3684Brxre microalbumin profileDTaP,Tdap,Td Vaccine (1 - Tdap) [facility]: 08-11-3752Gzvwyyxldbnvps of varicella zoster vaccine Zoster (Shingles) Vaccine (2 of 3)[facility]: 81-65-8538ZRU Vaccine (1 - 1-dose 60+ series)RSV Vaccine (1 - 1-dose 60+ series)[facility]: 20-73-3379Fmdjqdok Vaccine (1 of 2)Shingrix Vaccine (1 of 2) [facility]: 49-30-2617Pafjcen ScreeningAnxiety ScreeningMercy Health West Hospitaltart: 42-77-5950Qmyopfhskb ScreeningDepression Screening Start: 87-80-2514Syerqlfov C screeningHepatitis C Screening Bacteria identified in Urine by CultureUrine culture (clean catch) Microbiology Routine Urinary frequency 12/08/2024 12:28 PM [facility] Work Phone: End: 91-14-5332Rhpdhwk [Mass/volume] in Serum or PlasmaCalcium Lab Routine Osteoporosis, unspecified osteoporosis type, unspecified pathological fracture p resence every 3 months for 4 Occurrences starting 12/22/2024 until 12/22/2025 [facility] Work Phone: comment on above:every 3 months for 4 Occurrences starting 12/22/2024 until 12/22/2025 End: 89-55-3752Cwgchlj [Mass/volume] in Serum or PlasmaCalcium Lab Routine Osteoporosis, unspecified osteoporosis type, unspecified pathological fracture p resence MONTHLY for 12 Occurrences starting 02/08/2025 until 02/08/2026[facility] Work Phone: comment on above:MONTHLY for 12 Occurrences starting 02/08/2025 until 02/08/2026 End: 28-67-1553CT Brain WO and W contrast IVMRI BRAIN WO/W IVCON Radiology Routine Benign neoplasm of meninges (HCC) 1 Occurrences starting 09/26/2024 until 10/26/2025[facility] Work Phone: Comment on above:1 Occurrences starting 09/26/2024 until 10/26/2025 Immunizations Immunization DateImmunizationNotesCare PzjgvzhqZqjpiipk23-71-2216FVY, recombinant, protein subunit RSVpreF, adjuvant reconstitu, 120mcg/0.5mL, PF (Arexvy)Santo Christianson DPM Work Phone: noSt. [facility] Medicine InstituteRvkaoufsox09-06-4296JDCTI-77, mRNA, LNP-S, PF, 100mcg/0.5mL DoseJohn Johnson MD Work Phone: pAk[facility] HospitalMhwpgh74-73-1641Jpunwyc SARS-CoV-2 VaccinationGrmariam Snyder COMMUNITY [employer]S OFFICER Work Phone: [facility] InstituteSbacjkxwyt16-69-2048COLJX-73, mRNA, LNP-S, PF, 100mcg/0.5mL DoseJohn Johnson MD Work Phone: [phone] [place], [place] [address]003-23-2021Moderna SARS-CoV-2 VaccinationGrmariam Snyder COMMUNITY [employer]S OFFICER Work Phone: [facility] InstituteEwrjgxehpc84-14-3415rfvzjprheupg conjugate vaccine, 13 valentGrmariam Snyder COMMUNITY [employer]S OFFICER Work Phone: [facility] InstituteCwwqlezveu96-63-6564yerwtuvbt, high dose seasonal, preservative-freeRia Snyder COMMUNITY [employer]S OFFICER Work Phone: [facility] InstituteAqpmpwqddd01-47-1076Ekngeswh, quadrivalent, recombinant, injectable influenza vaccine, preservative freeJohn Johnson MD Work Phone: [phone] [place], [place] [address]Bggidw46-19-5121tiuldlzqh virus vaccine, unspecified formulationRia Snyder COMMUNITY ARTS OFFICER Work Phone: [facility] InstituteEofwpvtint69-95-4752Eecmzvhm, quadrivalent, recombinant, injectable influenza vaccine, preservative freeRia Snyder COMMUNITY ARTS OFFICER Work Phone: [facility] InstituteHrwajnimcw59-39-8893sxhkjknza, injectable, quadrivalent, preservative freeRia Snyder COMMUNITY ARTS OFFICER Work Phone: [facility] InstituteCshpdcfmqj18-31-8490ywqnvfnrg, seasonal, injectable, preservative freeRia Snyder COMMUNITY [employer]S OFFICER Work Phone: [facility] InstituteMbyiqkiuzw83-73-5903tjovqpxzchnk polysaccharide vaccine, 23 valentRia Snyder COMMUNITY ARTS OFFICER Work Phone: noSt. [facility] InstituteAcusuqopad22-63-8500eiyfedh and diphtheria toxoids, adsorbed, preservative free, for adult use (5 Lf of tetanus toxoid and 2 Lf of diphtheria toxoid)Ria Snyder COMMUNITY [employer]S OFFICER Work Phone: [facility] InstituteLxmqjihiaa11-71-3511peghyb vaccine, liveGretaleyda Snyder COMMUNITY ARTS OFFICER Work Phone: noSt. [facility] Medicine InstituteYvgibdkbxr30-40-6684jemnox vaccine, unspecified formulationJohn Johnson MD Work Phone: pAkron Children's HospitalIkkrxm82-26-0477zkjoonzgdmod polysaccharide vaccine, 23 Belem Cao MD Work Phone: [facility] Payers DatePayer CategoryPayerPolicy ID2024MedicaidAETNA MEDICARE ADVANTAGE [id number] 2024Medicare [id number] Health Insurance 2022Medicare HMOAETNA MEDICARE Member Subscriber Plan / Payer (Effective 2021-Present) Name: Angela Ruth Relation to Subscriber: Self Name: Angela Ruth Sharon Payer ID: 1 (NAIC) Type: Not on file Address: [facility] [address] [place] [id number] [id number] [id number] [id number] 2..1.725514.3.57[id number] 2..1.157801.3.57[id number] 2..1.220289.3.57[id number] 2.0.1.204372.3.57[id number] 2..1.263108.3.57[id number] 2.0.1.601100.3.579.[id number] 2.0.1.503114.3.579.2.2[id number] 2.840.1.390688.3.579.2.489984-19-3323Zgmqita71022116 2.840.1.205353.3.579.2.189809-64-2707Lzlvuyg58161489 2.0.1.574828.3.579.2.17[id number] 2.840.1.509503.3.579.2.197831-96-5617Rxldmed47032344 2.0.1.089823.3.579.2.963816-35-3647Vptstmo3347394 2.0.1.079933.3.579.2.086517-14-0284Mzxfyvk8783348 2.0.1.196817.3.579.2.641416-89-3922Zioojrp2069342 2..1.535940.3.579.2.499757-41-8532Rudujjq1349141 2..1.478797.3.579.2.632223-58-6825Lzewozp1768496 2.0.1.086192.3.579.2.735995-13-4481Getuwod7367955 2..1.187642.3.579.2.499108-26-9244Xjnqjwa7723570 2.840.1.595169.3.579.2.691455-09-4344Aubzfzi2530974 2.0.1.820501.3.579.2.079919-54-6714Bmlheib0872091 2.0.1.708796.3.579.2.851436-38-3363Rihjjxg1562082 2.840.1.872262.3.579.2.858066-10-1384Oypmtpk3108749 2.16840.1.034823.3.579.2.480625-90-5198Qpfdlby4387427 2.0.1.635207.3.579.2.343896-74-9272Fyeaeps042163204 2.0.1.450331.3.579.2.45923-11-3733Lotlhul815767533 2..1.060054.3.579.2.82624-38-3992Iiptrsg586211145 2..1.575414.3.579.2.94396-99-1393Vgafjoy911057523 2..1.389353.3.579.2.85928-67-4310Zdjoash387718698 2..1.652126.3.579.2.11951-72-8195Gtnusbd007928410 2.0.1.993267.3.579.2.55089-64-1144Uvxofsj579125105 2..1.690068.3.579.2.05445-00-0809Bzleeip909496898 2..1.684050.3.579.2.584865-19-0400Sprwkvy225893318 2.0.1.969133.3.579.2.597694-11-0423Dywlbmq151268714 2.840.1.740664.3.579.2.635418-74-0512Opdkimp899617875 2.840.1.830433.3.579.2.776583-70-3334Ngbdcpt061772135 2.16840.1.495518.3.579.2.501506-74-7930Vloebjt842317080 2.16840.1.061718.3.579.2.758236-84-1523Qaxnmse802047334 2.16840.1.148797.3.579.2.808707-80-1368Brnlzxg306938918 2.840.1.617554.3.579.2.814096-78-8225Movskxn234982052 2.840.1.177350.3.579.2.260403-32-6405Cxygley988957022 2.840.1.494347.3.579.2.920000-90-8839Elfkdoc491246966 2.840.1.782803.3.579.2.502938-79-9318Tqefagp861275662 2.840.1.946772.3.579.2.891174-70-9013Mzymrhz093717428 2.840.1.003308.3.579.2.272792-96-8642Fxbohyn744810874 2.840.1.526785.3.579.2.001848-19-8897Hiducsw995628507 2.840.1.282041.3.579.2.094018-96-5405Cexwyke298695395 2.840.1.793565.3.579.2.171952-89-3893Otnqnxy441543804 2.840.1.991867.3.579.2.280409-79-5673Ozsngzh736702222 2.840.1.466312.3.579.2.379900-20-9433Dvgtdwb123894475 2.16.840.1.344756.3.579.2.659981-90-5267Przdhyp145220333 2.16.840.1.209638.3.579.2.481212-69-5457Pgqbbcg060787440 2.16.840.1.403982.3.579.2.568207-94-0688Ijapxel580070161 2.16.840.1.388390.3.579.2.495219-91-4484Lmkcygv980920055 2.16.840.1.111615.3.579.2.171730-35-1880Amhvijg892899842 2.16.840.1.693065.3.579.2.1286 Social History DateTypeDetailFacilityStart: 06-04-2023 End: 80-43-7584Xbxtugr smoking status NHISNever smoked tobaccoNOPR Healthcare Start: 06-04-2023 End: 95-82-2049Snylkkm use and exposureSmokeless tobacco non-userNOPR Healthcare Start: 11-79-4283Haadejn intakeCurrent drinker of alcohol (finding)[facility]OM HealthcareStart: 12-03-2020 End: 72-27-0934Xfcvyye of Social functionNOPR HealthcareStart: 12-03-2020 End: 43-20-5839Cmojhvt use panelNOPR HealthcareStart: 02-76-7404Fwtsqtu Comment caffeine: occasionalNOMS HealthcareStart: 50-67-0163Owx Assigned At BirthNot on [facility] HealthcareStart: 01-27-2018 End: 01-45-8448Agnywwg intakeCurrent non-drinker of alcohol (finding)[facility]: 96-06-5687Dhmvvxgr Score (1-100), lower number is lower riskNot on [facility] Centertart: 07-10-2024 End: 06-86-4206Ubjwahper beverage intakeEx-drinker (finding)[facility] HealthcareDo you belong to [...] got money to buy more.Never trueNOMS HealthcareStart: 38-52-5928Jztaely CommentSecond hand smoke from [facility] HealthcareHistory of tobacco usePassive smokerProGreen Cross Hospital SystemStart: 22-04-4486Dtp assigned at birthTor[facility] SystemStart: 11-01-6233WrjCkwlyc (finding)[facility] SystemStart: 59-75-6689Ngsdkh identityIdentifies as female gender (finding)[facility]: 75-08-6739Jyaqzn orientationHeterosexual (finding)[facility] Medical Equipment Procedure CodeEquipment CodeEquipment Original TextEquipment IdentifierDates Patch Dura 1x1in Drmtrx-[place] + Clgn Rgnrt Membr Strl - [id number] Start: 07-03-2021 Goals DatePatient GoalDesired Activity/StatePersonal health goalPersonal health goal Comment on above: Evaluation of progress towards goal: safe transition from hospital to home with support of her friends/neighbors Functional Status KmasEpzztnpuauDiyxjbDvbvkbvo84-20-3416Vxsdtnd Health Questionnaire 2 item (PHQ- 2) [Reported][facility] Oimrbvljbw04-88-7580Frmzm score [AUDIT-C]0 04/02/2024 11:27 PM EDT Gallo PayanNO Eoidprcogx07-56-8144Lfo often do you have a drink containing alcohol?Never 04/02/2024 11:27 PM EDT Mychart, Generic NeverSt. [facility] Behavioral Medicine InstituteUoppbvqgbj67-66-1779Baewlezdfv statusPatient does not drink 04/02/2024 11:27 PM EDT Mychart, Generic Patient does not drinkSt. Louis Behavioral Medicine InstituteMtwerhxslc05-62-1115Zyn often do you have 6 or more drinks on 1 occasion?Never 04/02/2024 11:27 PM EDT Mychart, Generic [facility] Clinical Notes 03-24-2024 to 09-25-2025 Note Date & XputIeblTgbhhkvf59-90-7831 History of Present illness Narrative* Kayla Fulton [...] care of her granddaughter. documented in this [facility]10-29-2025 Telephone encounter Note* Telephone Encounter - Bia Cao MD - 09/19/2025 2:20 PM EDT Approvals [facility] refills [facility] InstituteJprgkpzxcp48-98-0331 Miscellaneous Notes* Telephone Encounter - Bia Cao MD - 09/19/2025 2:20 PM EDT Approvals with refills documented in this encounterSt. Louis Behavioral Medicine InstituteAylgqtxjgy11-20-0465 History of Present illness Narrative* Shaye Palmer [...] care of her granddaughter. documented in [facility]09-[facility] Telephone encounter Note* Telephone Encounter - Bia Cao MD - 07/25/2025 9:59 AM EDT [facility] InstituteSphzjmjndg10-23-9400 Miscellaneous Notes* Telephone Encounter - Bia Cao MD - 07/25/2025 9:59 AM EDT Approvals with refills documented in this encounterSt. Louis Behavioral Medicine InstituteXciwfsqble04-90-8649 History of Present illness Narrative* Shaye Palmer [...] care of her granddaughter. documented in this encounterLuther[facility] Hospital08-25-2025 History of Present illness Narrative* John Johnson MD - 07/16/2025 8:01 PM EDT Normal calcium levels documented in this encounterLutheran Hospital08-19-2025 History of Present illness Narrative* Bia Cao MD - 07/10/2025 1:00 PM EDTAssociated Problem(s): Stage 3b chronic kidney disease (CKD) ([facility]-HCC) Orders: CBC and differential; Future Comprehensive metabolic [...] - 07/10/2025 1:00 PM EDTAssociated Problem(s): Asthma ([facility]) stable * Bia Cao MD - 07/10/2025 [...] levels due to family issues. 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 Her formula mixer is receiving counseling, but the situation remains challenging. Social History: Diet: She consumes dairy products. Living Condition: Lives with a formula mixer who recently lost a baby. Objective BP [...] Plan Stage 3b chronic kidney disease (CKD) ([facility]-HCC) Orders: CBC and differential; Future Comprehensive metabolic [...] scheduled in 4 months. documented in this encounterSt. Louis Behavioral Medicine InstituteUtlfpuxcdu09-04-0704 Telephone encounter Note* Telephone Encounter - Torres Nina - 06/26/2025 2:21 PM EDT Angela asking if she can stop in and leave a urine spc. - she has UTI symptoms - she said Dr Cao usually allows her to just come in and leave a urine spc . Please call and let her know when to come in [phone] [facility] InstituteAnycoyslkq68-72-7616 Miscellaneous Notes* Telephone Encounter - Torres Wood - 06/26/2025 2:21 PM EDT Angela asking if she can stop in and leave a urine spc. - she has UTI symptoms - she said Dr Cao usually allows her to just come in and leave a urine spc . Please call and let her know when to come in [phone] documented in this encounterSt. Louis Behavioral Medicine InstituteRtwllomptd79-88-7749 Evaluation + Plan note* Assessment & Plan Note - MINH Gallagher - 06/13/2025 2:22 PM EDT Associated Problem(s): Urge incontinence We will see her back in January with a KUB. She will call sooner if she has any problems. If she suspects an infection, she can contact the office so that we can have her stop at the lab for culture [facility]07-23-2025 Miscellaneous Notes* Assessment & Plan Note - MINH Gallagher - 06/13/2025 2:22 PM EDTAssociated Problem(s): Urge incontinence We will see her back in January with a KUB. She will call sooner if she has any problems. If she suspects an infection, she can contact the office so that we can have her stop at the lab for culture documented in this encounterLutheran Hospital07-23-2025 History of Present illness Narrative* MINH Gallagher - 06/13/2025 2:00 PM EDT Images from the original note were not included. [address] [place] [address] A [facility] [address] Patient: Angela Ruth Date of : 1945 [...] concerns. Summary of old records: Notes from mi 02/27/25: The Myrbetriq was too expensive so [...] 07/07/2018 Performed by Alexander Leach MD at [facility] ENDOSCOPY COSMETIC SURGERY 1984 DISCECTOMY 1989 Partial L4-5 EGD 2001 EYE SURGERY 2014 FOOT SURGERY 2009 Reattachment of tendon left foot with bone graft HIP SURGERY 2003 Excision of bursa left hip HYSTERECTOMY 1983 INJECTION BLOCK EPIDURAL STEROID LUMBAR/SACRAL Left L 5,1 NR Left 12/20/2020 Performed by Shubham Clifton MD at [facility] INJECTION BLOCK NERVE MEDIAL BRANCH right C 4/5,5/6 Right 05/22/2022 Performed by Shubham Clifton MD at [facility] INJECTION BLOCK NERVE MEDIAL BRANCH right C 4/5,5/6 Right 04/17/2022 Performed by Shubham Clifton MD at [facility] CAUDAL EPIDURAL WITH CATHETER, STEROID N/A 03/07/2018 Performed by Shubham Clifton MD at [facility] LARGE JOINT BURSA: bilat hip Bilateral 12/10/2017 Performed by Shubham Clifton MD at [facility] MEDIAL BRANCH NERVE BLOCK Bilateral L 4/5, 5/1 Bilateral 06/28/2017 Performed by Shubham Clifton MD at [facility] INJECTION MEDIAL BRANCH NERVE BLOCK Right L 2/3, 3/4 Right 12/08/2019 Performed by Shubham Clifton MD at [facility] MEDIAL BRANCH NERVE BLOCK RIGHT L23 34 Right 01/19/2020 Performed by Shubham Clifton MD at [facility] INJECTION SI JOINT Bilateral 04/09/2017 Performed by Shubham Clifton MD at [facility] INJECTION SI JOINT Bilateral SI Joint Bilateral 05/31/2020 Performed by Shubham Clifton MD at [facility] INJECTION SI JOINT Left SI JOint Left 01/06/2019 Performed by Suhbham Clifton MD at [facility] INJECTION SI JOINT Right SI Joint Right 06/09/2019 Performed by Shubham Clifton MD at [facility] INJECTION SPINE TRANSFORAMINAL Left L 4, 5 NR Left 09/24/2017 Performed by Shubham Clifton MD at [facility] INJECTION SPINE TRANSFORAMINAL Left L 5,1 Nroot Left 01/08/2023 Performed by Shubham Clifton MD at [facility] INJECTION SPINE TRANSFORAMINAL Right L 5,1 Nroot Right 11/27/2022 Performed by Shubham Clifton MD at [facility] STEROID EPI 1 WITH SEDATION Left 5,1 NR Left 05/08/2019 Performed by Shubham Clifton MD at [facility] KNEE ARTHROSCOPY 2010, 2013 KNEE [...] 12/02/2018 Performed by Shubham Clifton MD at [facility] RADIO FREQUENCY ABLATION Left L 4/5, 5/ Left 07/30/2017 Performed by Shubham Clifton MD at [facility] RADIO FREQUENCY ABLATION Left SI joint Left 03/31/2019 Performed by Shubham Clifton MD at [facility] RADIO FREQUENCY ABLATION Right L2/3, 3/4 Right 03/29/2020 Performed by Shubham Clifton MD at [facility] RADIOFREQUENCY ABLATION SPINAL Left Si joint Left 05/07/2017 Performed by Shubham Clifton MD at [facility] RADIOFREQUENCY ABLATION SPINAL Right C 4/5,5/6 Right 06/26/2022 Performed by Shubham Clifton MD at [facility] RADIOFREQUENCY ABLATION SPINAL RIGHT SI JOINT Right 05/21/2017 Performed by Shubham Clifton MD at [facility] RELEASE CARPAL TUNNEL Left 11/04/2021 [...] mg total) by mouth in the morning. myfmapr-giugjvueygymf-qphpqyyx (EXCEDRIN MIGRAINE) 250-250-65 mg per tablet Take [...] hospitalization) Allergies: Indocin [indomethacin], Lincocin [lincomycin], Lincosamides, Odmnvljk-[id number] antimigraine agents, Adhesive, Eggshell membrane, Influenza virus [...] caffeine as well as addressing constipation with tqtd-iwy-ltkwawr agents. If no improvement can add beta [...] MINH Gallagher 06/13/25 1422 [facility] History of Present illness Narrative* Abran Maldonado [...] care of her granddaughter. [facility] History of Present illness Narrative* Joan Myesr RN - 05/16/2025 10:30 AM EDT Patient [...] care of her granddaughter. [facility] Telephone encounter Note* Telephone Encounter - Katerin Alvarado MD - 05/08/2025 11:[address] [facility] Work Phone: [phone]) 324-714606-17-2025 Miscellaneous Notes* Telephone Encounter - Katerin Alvarado MD - 05/08/2025 11:15 AM EDT prn * Telephone Encounter - Alix Alvarado - 05/08/2025 11:02 AM EDT Called pt to see if she is planning on scheduling with doctor regarding outgoing referral, pt said no, she does not want to schedule any appts. documented in this encounterSt[facility] [id number] Telephone encounter Note* Telephone Encounter - lAix Alvarado - 05/08/2025 11:02 AM EDT Called pt to see if she is planning on scheduling with doctor regarding outgoing referral, pt said no, she does not want to schedule any appts. [facility] [id number] History of Present illness Narrative* John Johnson [...] 07/07/2018 Performed by Alexander Leach MD at [facility] ENDOSCOPY COSMETIC SURGERY 1985 DISCECTOMY 1989 Partial L4-5 EGD 2001 EYE SURGERY 2014 FOOT SURGERY 2009 Reattachment of tendon left foot with bone graft HIP SURGERY 2003 Excision of bursa left hip HYSTERECTOMY 1983 INJECTION BLOCK EPIDURAL STEROID LUMBAR/SACRAL Left L 5,1 NR Left 12/20/2020 Performed by Shubham Clifton MD at [facility] INJECTION BLOCK NERVE MEDIAL BRANCH right C 4/5,5/6 Right 05/22/2022 Performed by Shubham Clifton MD at [facility] IN[facility] BLOCK NERVE MEDIAL BRANCH right C 4/5,5/6 Right 04/17/2022 Performed by Shubham Clifton MD at [facility] IN[facility] CAUDAL EPIDURAL WITH CATHETER, STEROID N/A 03/07/2018 Performed by Shubham Clifton MD at [facility] LARGE JOINT BURSA: bilat hip Bilateral 12/10/2017 Performed by Shubham Clifton MD at [facility] IN[facility]CTION MEDIAL BRANCH NERVE BLOCK Bilateral L 4/5, 5/1 Bilateral 06/28/2017 Performed by Shubham Clifton MD at [facility] IN[facility] MEDIAL BRANCH NERVE BLOCK Right L 2/3, 3/4 Right 12/08/2019 Performed by Shubham Clifton MD at [facility] MEDIAL BRANCH NERVE BLOCK RIGHT L23 34 Right 01/19/2020 Performed by Shubham Clifton MD at [facility] IN[facility] SI JOINT Bilateral 04/09/2017 Performed by Shubham Clifton MD at [facility] SI JOINT Bilateral SI Joint Bilateral 05/31/2020 Performed by Shubham Clifton MD at [facility] INJECTION SI JOINT Left SI JOint Left 01/06/2019 Performed by Shubham Clifton MD at [facility] INJECTION SI JOINT Right SI Joint Right 06/09/2019 Performed by Shubham Clifton MD at [facility] INJECTION SPINE TRANSFORAMINAL Left L 4, 5 NR Left 09/24/2017 Performed by Shubham Clifton MD at [facility] INJECTION SPINE TRANSFORAMINAL Left L 5,1 Nroot Left 01/08/2023 Performed by Shubham Clifton MD at [facility] INJECTION SPINE TRANSFORAMINAL Right L 5,1 Nroot Right 11/27/2022 Performed by Shubham Clifton MD at [facility] STEROID EPI 1 WITH SEDATION Left 5,1 NR Left 05/08/2019 Performed by Shubham Clifton MD at [facility] KNEE ARTHROSCOPY 2010, 2013 KNEE [...] 12/02/2018 Performed by Shubham Clifton MD at [facility] RADIO FREQUENCY ABLATION Left L 4/5, 5/1 Left 07/30/2017 Performed by Shubham Clifton MD at [facility] RADIO FREQUENCY ABLATION Left SI joint Left 03/31/2019 Performed by Shubham Clifton MD at [facility] RADIO FREQUENCY ABLATION Right L2/3, 3/4 Right 03/29/2020 Performed by Shubham Clifton MD at [facility] RADIOFREQUENCY ABLATION SPINAL Left Si joint Left 05/07/2017 Performed by Shubham Clifton MD at [facility] RADIOFREQUENCY ABLATION SPINAL Right C 4/5,5/6 Right 06/26/2022 Performed by Shubham Clifton MD at [facility] RADIOFREQUENCY ABLATION SPINAL RIGHT SI JOINT Right 05/21/2017 Performed by Shubham Clifton MD at [facility] RELEASE CARPAL TUNNEL Left 11/04/2021 Performed by Corey Chacon MD at [facility] SHOULDER SURGERY 2012 Right rotator cuff [...] mouth in the morning., Disp: , Rfl: isvhmxl-ksaqbfvlcouhx-eodjljve (EXCEDRIN MIGRAINE) 250-250-65 mg per tablet, Take [...] Hypotension fainting Lincocin [Lincomycin] Anaphylaxis Lincosamides Anaphylaxis Vwqemkmx-4-Rz8 Antimigraine Agents History of cardiovascular and cerebrovascular [...] [facility] [address] [address] Dept: [phone] FAX: [phone] documented in this encounterLuther[facility] Hospital05-28-2025 Instructions* Patient Instructions* John Johnson MD - 04/18/2025 1:30 PM EDT December 08, 2025 DEXA documented in this encounterLutheran Hospital05-28-2025 History of Present illness Narrative* Abran Maldonado RN - 04/18/2025 10:30 AM EDT Pt here for evenity injection as scheduled. Denies any issues with previous injections. Calcium 9.5. Evenity given SQ to bilat upper arms. Pt tolerated well. Treatment calendar given. Pt dc'd in stable ambulatory condition. documented in this encounterLutheran Hospital05-19-2025 History of Present illness Narrative* Bia Cao MD - 04/09/2025 1:40 PM EDT Images from the original note were not included. Angela Ruth is a 79 y.o. female presents with chief complaint of Follow-up HPI: HPI History of Present Illness The patient presents for evaluation of migraines, a recent fall, carpal tunnel syndrome, and arthritis. 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 [facility] LUMBAR EPIDURAL INJECTION 12/20/2020 Dr Clifton RADIOFREQUENCY [...] Depression: Not at risk (02/12/2025) Received from [facility] PHQ-2 Total Score: 2 REVIEW OF SYMPTOMS: [...] scheduled in 3 months. [facility] Telephone encounter Note* Telephone Encounter - Bia Cao MD - 03/22/2025 9:52 AM EDT [facility] [id number] Miscellaneous Notes* Telephone Encounter - Bia Cao MD - 03/22/2025 9:52 AM EDT Approvals with refills [facility] History of Present illness Narrative* Abran Maldonado RN - 03/21/2025 10:30 AM EDT Pt here for evenity injection as scheduled. Denies any issues with previous injections. Calcium 9.6. Evenity given SQ to bilat upper arms. Pt tolerated well. Treatment calendar given. Pt dc'd in stable ambulatory condition. documented in this encounterLutheran Hospital04-08-2025 Evaluation + Plan note* Assessment & Plan Note - MINH Gallagher - 02/27/2025 3:14 PM EDT Associated Problem(s): Urge incontinence We discussed cranberry/D mannose supplements, topical estrogen cream, methenamine, or a prophylactic antibiotic. [facility]04-08-[facility]25 Miscellaneous Notes* Assessment & Plan Note - MINH Gallagher - 02/27/2025 3:14 PM EDTAssociated Problem(s): Urge incontinence We discussed cranberry/D mannose supplements, topical estrogen cream, methenamine, or a prophylactic antibiotic. documented in this encounterLutheran Hospital04-08-2025 History of Present illness Narrative* MINH Gallagher - 02/27/2025 2:30 PM EDT Images from the original note were not included. [address] [facility] [id number] Patient: Angela Ruth Date of : 1945 [...] 07/07/2018 Performed by Alexander Leach MD at [facility] ENDOSCOPY COSMETIC SURGERY 1984 DISCECTOMY 1989 Partial L4-5 EGD 2001 EYE SURGERY 2014 FOOT SURGERY 2009 Reattachment of tendon left foot with bone graft HIP SURGERY 2003 Excision of bursa left hip HYSTERECTOMY 1983 INJECTION BLOCK EPIDURAL STEROID LUMBAR/SACRAL Left L 5,1 NR Left 12/20/2020 Performed by Shubham Clifton MD at [facility] BLOCK NERVE MEDIAL BRANCH right C 4/5,5/6 Right 05/22/2022 Performed by Shubham Clifton MD at [facility] IN[facility] BLOCK NERVE MEDIAL BRANCH right C 4/5,5/6 Right 04/17/2022 Performed by Shubham Clifton MD at [facility] IN[facility] CAUDAL EPIDURAL WITH CATHETER, STEROID N/A 03/07/2018 Performed by Shubham Clifton MD at [facility] LARGE JOINT BURSA: bilat hip Bilateral 12/10/2017 Performed by Shubham Clifton MD at [facility] MEDIAL BRANCH NERVE BLOCK Bilateral L 4/5, 5/1 Bilateral 06/28/2017 Performed by Shubham Clifton MD at [facility] MEDIAL BRANCH NERVE BLOCK Right L 2/3, 3/4 Right 12/08/2019 Performed by Shubham Clifton MD at [facility] MEDIAL BRANCH NERVE BLOCK RIGHT L23 34 Right 01/19/2020 Performed by Shubham Clifton MD at [facility] IN[facility] SI JOINT Bilateral 04/09/2017 Performed by Shubham Clifton MD at [facility] INJECTION SI JOINT Bilateral SI Joint Bilateral 05/31/2020 Performed by Shubham Clifton MD at [facility] INJECTION SI JOINT Left SI JOint Left 01/06/2019 Performed by Shubham Clifton MD at [facility] INJECTION SI JOINT Right SI Joint Right 06/09/2019 Performed by Shubham Clifton MD at [facility] SPINE TRANSFORAMINAL Left L 4, 5 NR Left 09/24/2017 Performed by Shubham Clifton MD at [facility] INJECTION SPINE TRANSFORAMINAL Left L 5,1 Nroot Left 01/08/2023 Performed by Shubham Clifton MD at [facility] INJECTION SPINE TRANSFORAMINAL Right L 5,1 Nroot Right 11/27/2022 Performed by Shubham Clifton MD at [facility] STEROID EPI 1 WITH SEDATION Left 5,1 NR Left 05/08/2019 Performed by Shubham Clifton MD at [facility] KNEE ARTHROSCOPY 2010, 2013 KNEE [...] 12/02/2018 Performed by Shubham Clifton MD at [facility] RADIO FREQUENCY ABLATION Left L 4/5, 5/1 Left 07/30/2017 Performed by Shubham Clifton MD at [facility] RADIO FREQUENCY ABLATION Left SI joint Left 03/31/2019 Performed by Shubham Clifton MD at [facility] RADIO FREQUENCY ABLATION Right L2/3, 3/4 Right 03/29/2020 Performed by Shubham Clifton MD at [facility] RADIOFREQUENCY ABLATION SPINAL Left Si joint Left 05/07/2017 Performed by Shubham Clifton MD at [facility] RADIOFREQUENCY ABLATION SPINAL Right C 4/5,5/6 Right 06/26/2022 Performed by Shubham Clifton MD at [facility] RADIOFREQUENCY ABLATION SPINAL RIGHT SI JOINT Right 05/21/2017 Performed by Shubham Clifton MD at [facility] RELEASE CARPAL TUNNEL Left 11/04/2021 Performed by Corey Chacon MD at [facility] SHOULDER SURGERY 2012 Right rotator cuff [...] mg total) by mouth in the morning. wvpqtkg-jtqrhqayarvfq-jhqyhyvo (EXCEDRIN MIGRAINE) 250-250-65 mg per tablet Take [...] hospitalization) Allergies: Indocin [indomethacin], Lincocin [lincomycin], Lincosamides, Gghmjuqi-1-xz5 antimigraine agents, Adhesive, Eggshell membrane, Influenza virus [...] caffeine as well as addressing constipation with gzrf-qbh-upvhuhu agents. If no improvement can add beta [...] Kramer or me in 3-4 months in [place] MINH GALLAGHER This note was created with the assistance of a speech recognition program. While intending to generate a timely document that accurately reflects the content of the visit, no guarantee can be provided that every grammatical or spelling mistake has been or will be identified or corrected. Thank you for your understanding. MINH Gallagher 02/27/25 1515 documented in this encounterPremier Health Miami [facility] Hospital NorthIntent Media Mackin[facility] Straits [id number] Instructions* Patient Instructions* MINH Gallagher - 02/27/2025 [...] what you want todo. documented in this encounterLutheran Hospital03-31-2025 Telephone encounter Note* Telephone Encounter - Bia Cao MD - 02/19/2025 12:52 PM EDT [facility] [id number] Miscellaneous Notes* Telephone Encounter - Bia Cao MD - 02/19/2025 12:52 PM EDT Approvals with refills documented in this encounterSt. [facility] Medicine [id number] History of Present illness Narrative* Emerita Borden RN - 02/16/2025 1:00 PM EDT Patient here for Evenity injection Vitals WNL Injection given sub q in the Right arm Patient tolerated well Calendar given for next injection documented in this encounterLutheran Hospital03-24-2025 Telephone encounter Note* Telephone Encounter - Maryan Aponte - 02/12/2025 4:08 PM EDT Nancy- pharmacy from [facility] in [place] calling to let you know that they received rx for remeron and they cannot fill due to drug interaction with amitriptyline prescribed by Dr. Dorsey. It is a category X- cannot fill. Increased risk of serotonin syndrome. She has been on amitriptyline for years. Please advise jil. Thank you. [facility] [id number] Miscellaneous Notes* Telephone Encounter - Maryan Aponte - 02/12/2025 4:08 PM EDT Nancy- pharmacy from [facility] in [place] calling to let you know that they received rx for remeron and they cannot fill due to drug interaction with amitriptyline prescribed by Dr. Dorsey. It is a category X- cannot fill. Increased risk of serotonin syndrome. She has been on amitriptyline for years. Please advise jil. Thank you. documented in this encounterNOMS [id number] History of Present illness Narrative* CHACE Rayo [...] mg TID Inderal (tremors) Midrin Migraine cocktails [place] PRN Occipital nerve blocks (last 03/2021) Propranolol [...] vs meningioma). He referred her to the for evaluation for possible gamma knife intervention. [...] vertigo) Brain tumor (benign) ([facility]) Breast disorder 4 biopsies Bronchitis 01/01/2017 Cancer ([facility]) Basal cell Carpal tunnel syndrome [...] 07/07/2018 Performed by Alexander Leach MD at [facility] ENDOSCOPY COSMETIC SURGERY 1984 DISCECTOMY 1989 Partial L4-5 EGD 2001 EYE SURGERY 2014 FOOT SURGERY 2009 Reattachment of tendon left foot with bone graft HIP SURGERY 2003 Excision of bursa left hip HYSTERECTOMY 1983 INJECTION BLOCK EPIDURAL STEROID LUMBAR/SACRAL Left L 5,1 NR Left 12/20/2020 Performed by Shubham Clifton MD at [facility] BLOCK NERVE MEDIAL BRANCH right C 4/5,5/6 Right 05/22/2022 Performed by Shubham Clifton MD at [facility] IN[facility] BLOCK NERVE MEDIAL BRANCH right C 4/5,5/6 Right 04/17/2022 Performed by Shubham Clifton MD at [facility] CAUDAL EPIDURAL WITH CATHETER, STEROID N/A 03/07/2018 Performed by Shubham Clifton MD at [facility] LARGE JOINT BURSA: bilat hip Bilateral 12/10/2017 Performed by Shubham Clifton MD at [facility] MEDIAL BRANCH NERVE BLOCK Bilateral L 4/5, 5/1 Bilateral 06/28/2017 Performed by Shubham Clifton MD at [facility] MEDIAL BRANCH NERVE BLOCK Right L 2/3, 3/4 Right 12/08/2019 Performed by Shubham Clifton MD at [facility] MEDIAL BRANCH NERVE BLOCK RIGHT L23 34 Right 01/19/2020 Performed by Shubham Clifton MD at [facility] SI JOINT Bilateral 04/09/2017 Performed by Shubham Clifton MD at [facility] SI JOINT Bilateral SI Joint Bilateral 05/31/2020 Performed by Shubham Clifton MD at [facility] SI JOINT Left SI JOint Left 01/06/2019 Performed by Shubham Clifton MD at [facility] SI JOINT Right SI Joint Right 06/09/2019 Performed by Shubham Clifton MD at [facility] SPINE TRANSFORAMINAL Left L 4, 5 NR Left 09/24/2017 Performed by Shubham Clifton MD at [facility] INJECTION SPINE TRANSFORAMINAL Left L 5,1 Nroot Left 01/08/2023 Performed by Shubham Clifton MD at [facility] INJECTION SPINE TRANSFORAMINAL Right L 5,1 Nroot Right 11/27/2022 Performed by Shubham Clifton MD at [facility] INJECTION STEROID EPI 1 WITH SEDATION Left 5,1 NR Left 05/08/2019 Performed by Shubham Clifton MD at [facility] KNEE ARTHROSCOPY 2010, 2013 KNEE [...] 12/02/2018 Performed by Shubham Clifton MD at [facility] RADIO FREQUENCY ABLATION Left L 4/5, 5/1 Left 07/30/2017 Performed by Shubham Clifton MD at [facility] RADIO FREQUENCY ABLATION Left SI joint Left 03/31/2019 Performed by Shubham Clifton MD at [facility] RADIO FREQUENCY ABLATION Right L2/3, 3/4 Right 03/29/2020 Performed by Shubham Clifton MD at [facility] RADIOFREQUENCY ABLATION SPINAL Left Si joint Left 05/07/2017 Performed by Shubham Clifton MD at [facility] RADIOFREQUENCY ABLATION SPINAL Right C 4/5,5/6 Right 06/26/2022 Performed by Shubham Clifton MD at [facility] RADIOFREQUENCY ABLATION SPINAL RIGHT SI JOINT Right 05/21/2017 Performed by Shubham Clifton MD at [facility] RELEASE CARPAL TUNNEL Left 11/04/2021 [...] Resource Strain: Low Risk (04/02/2024) [facility] Overall Financial Resource Strain (CARDIA) Difficulty of Paying Living Expenses: Not very hard Food Insecurity: No Food Insecurity (02/12/2025) Hunger Screening Food Insecurity - Worry: Never True Food Insecurity - Inability: Never True Transportation Needs: Unknown (04/02/2024) [facility] PRAPARE - Transportation Lack of Transportation (Medical): Not on file Lack of Transportation (Non-Medical): No Physical Activity: Insufficiently Active (04/02/2024) [facility] from [facility] Exercise Vital Sign Days of Exercise per Week: 3 days Minutes of Exercise per Session: 10 min Stress: Stress Concern Present (04/02/2024) [facility] [place] [employer] Occupational [employer] - Occupational Stress Questionnaire Feeling of Stress : Rather much Social Connections: Moderately Integrated (04/02/2024) [facility] Social Connection and Isolation Panel [NHANES] Frequency of Communication with Friends and Family: More than three times a week Frequency of Social Gatherings with Friends and Family: More than three times a week Attends Congregational Services: More than 4 times per year Active Member of Clubs or Organizations: Yes Attends Club or Organization Meetings: More than 4 times per year Marital Status: Interpersonal Safety: Not on file Housing Instability: High Risk (04/02/2024) [facility] Housing Stability Vital Sign Unable to Pay [...] mg total) by mouth in the morning. cvavpox-cdemhsgzsybhy-uhsgdvve (EXCEDRIN MIGRAINE) 250-250-65 mg per tablet Take [...] neuroma vs meningioma). Hereferred her to the for evaluation for possible gamma knife intervention. [...] procedures Referring and communicating with other health special needs child caregiver (not separately reported) Documenting clinical information in the electronic or other health record Independently interpreting results (not separately reported) and communicating results to the patient/family/caregiver Care coordination (not separately reported) - Yoanna Dorsey DNP, APRN-CNP 02/12/25 8:31 AM CHACE Rayo 02/12/25 0831 documented in this encounterSt. Albans Hospitalgriddig [id number] Instructions* Patient Instructions* CHACE Rayo - 02/12/2025 [...] needed (VIDYO is fine) documented in this encounterLutheran Hospital03-21-2025 Miscellaneous Notes* Telephone Encounter - Blanche Aviles CMA - 02/09/2025 10:11 AM EDT ----- Message from HAVEN Osullivan sent at 02/09/2025 8:21 AM EDT ----- Regarding: RE: re schedule appt Really any day is fine to reschedule except for Wednesday. ----- Message ----- From: Blanche Aviles CMA Sent: 02/09/2025 7:43 AM EDT To: [place] [facility] Subject: re schedule appt Pt called and said that she needs to reschedule her appt for today and when someone calls she can explain when she needs it rescheduled for. Pt left a voicemail yesterday after hours. I can call and reschedule her if you let me know what's available. documented in this encounterLutheran Hospital03-21-2025 Telephone encounter Note* Telephone Encounter - Blanche Aviles CMA - 02/09/2025 10:11 AM EDT ----- Message from HAVEN Osullivan sent at 02/09/2025 8:21 AM EDT ----- Regarding: RE: re schedule appt Really any day is fine to reschedule except for Wednesday. ----- Message ----- From: Blanche Aviles CMA Sent: 02/09/2025 7:43 AM EDT To: [facility] Subject: re schedule appt Pt called and said that she needs to reschedule her appt for today and when someone calls she can explain when she needs it rescheduled for. Pt left a voicemail yesterday after hours. I can call and reschedule her if you let me know what's available. [facility]03-[facility] History of Present illness Narrative* Bia Cao [...] 1953 APPENDECTOMY 1965 BREAST BIOPSY x4 - [id number] CHOLECYSTECTOMY 2002 EYE SURGERY 01/21/2023 retinal repair [facility] HEMANGIOMA EXCISION 1946 from upper back HYSTERECTOMY 1984 KNEE SURGERY Bilateral arthroscopic knee surgery x3 (Rx2, Lx1) ([id number]) LAPAROTOMY OOPHERECTOMY 1984 LUMBAR DISCECTOMY 1989 partial LUMBAR DISCECTOMY 01/14/2017 Microdiscetomy L5-S1 LUMBAR DISCECTOMY 07/03/2021 L1-2 partial discectomy, L1-2, L2-3 cleaning out of stenosis in the spinal canal [facility] LUMBAR EPIDURAL INJECTION 12/20/2020 Dr Clifton RADIOFREQUENCY [...] Depression - At risk (07/13/2024) Received from [facility] PHQ-2 Total Score: 3 REVIEW OF SYMPTOMS: [...] catch) Assessment & Plan documented in this encounterSt. [facility] Behavioral Medicine [id number] History of Present illness Narrative* Bia Cao [...] 1953 APPENDECTOMY 1965 BREAST BIOPSY x4 - [id number] CHOLECYSTECTOMY 2002 EYE SURGERY 01/21/2023 retinal repair [facility] HEMANGIOMA EXCISION 1946 from upper back HYSTERECTOMY 1984 KNEE SURGERY Bilateral arthroscopic knee surgery x3 (Rx2, Lx1) ([id number]) LAPAROTOMY OOPHERECTOMY 1985 LUMBAR DISCECTOMY 1989 partial LUMBAR DISCECTOMY 01/14/2017 Microdiscetomy L5-S1 LUMBAR DISCECTOMY 07/03/2021 L1-2 partial discectomy, L1-2, L2-3 cleaning out of stenosis in the spinal canal [facility] LUMBAR EPIDURAL INJECTION 12/20/2020 Dr Clifton RADIOFREQUENCY [...] Depression - At risk (07/13/2024) Received from [facility] PHQ-2 Total Score: 3 REVIEW OF SYMPTOMS: [...] up in 1 month. documented in this encounterSt. [facility] Behavioral Medicine [id number] History of Present illness Narrative* Emerita Borden RN - 01/11/2025 3:00 PM EST Patient does not have a current calcium completed Patient will have calcium done and will call to re-schedule documented in this encounterLutheran Hospital02-18-2025 History of Present illness Narrative* Katerin Alvarado MD - 01/09/2025 1:40 PM EST Images from the original note were not included. Subjective Patient ID: Angela Ruth is a 79 y.o. female who presents for Hoarseness Pt reports a many year h/o trouble with her voice. 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 [...] Recurrent falls 11/01/2017 Other specified depressive episodes (CMS/[facility]) 02/12/2017 Nocturnal leg cramps 06/04/2023 Mixed stress and urge urinary incontinence 10/29/2020 Major depressive disorder, single episode, in full remission ([facility]) 10/24/2019 Hyperlipidemia ([facility]) 11/08/2015 History of lumbar fusion 12/11/2015 History of depression 2018 Gastroesophageal reflux disease without esophagitis 09/15/2021 Herniation of lumbar intervertebral disc with radiculopathy 01/07/2017 Essential tremor 12/12/2018 Essential hypertension (CMS/HCC) 03/13/2013 Degeneration of lumbosacral intervertebral disc 08/14/2016 Chronic idiopathic constipation 07/10/2019 Bilateral occipital neuralgia 03/02/2019 Asthma ([facility]) 03/26/2016 Age-related osteoporosis without current [...] 1953 APPENDECTOMY 1965 BREAST BIOPSY x4 - [id number] CHOLECYSTECTOMY 2002 EYE SURGERY 01/21/2023 retinal repair [facility] HEMANGIOMA EXCISION 1946 from upper back HYSTERECTOMY 1984 KNEE SURGERY Bilateral arthroscopic knee surgery x3 (Rx2, Lx1) ([id number]) LAPAROTOMY OOPHERECTOMY 1984 LUMBAR DISCECTOMY 1989 partial LUMBAR DISCECTOMY 01/14/2017 Microdiscetomy L5-S1 LUMBAR DISCECTOMY 07/03/2021 L1-2 partial discectomy, L1-2, L2-3 cleaning out of stenosis in the spinal canal [facility]. [facility] LUMBAR EPIDURAL INJECTION 12/20/2020 Dr Clifton RADIOFREQUENCY [...] will refer pt to heavenly nevarez at [facility] for tx. Consider laryngology referral for TVF [...] in the office during the nurse visit. [facility] [id number] Miscellaneous Notes* Telephone Encounter - Tae Hardy [...] let her know :) documented in this encounterSt. Louis Behavioral Medicine [id number] Telephone encounter Note* Telephone Encounter - Tamela [...] her back and let her know :) [facility] [id number] History of Present illness Narrative* Alyce Marrero, [...] Flowsheet Row Office Visit from 12/26/2024 in [facility] FNR FM with Bia Cao MD Hospital Information ED, Hospital or Long Term Facility Discharge? ED Patient has been contacted within 1 week of being seen in the ED Yes Diagnosis Fall Discharge Date 12/23/24 Discharged To: Home Setting Discharge Hospital [facility] Engagement Call Start Time 925 Admission [...] 1953 APPENDECTOMY 1965 BREAST BIOPSY x4 - [id number] CHOLECYSTECTOMY 2002 EYE SURGERY 01/21/2023 retinal repair [facility] HEMANGIOMA EXCISION 1946 from upper back HYSTERECTOMY 1984 KNEE SURGERY Bilateral arthroscopic knee surgery x3 (Rx2, Lx1) ([id number]) LAPAROTOMY OOPHERECTOMY 1985 LUMBAR DISCECTOMY 1989 partial LUMBAR DISCECTOMY 01/14/2017 Microdiscetomy L5-S1 LUMBAR DISCECTOMY 07/03/2021 L1-2 partial discectomy, L1-2, L2-3 cleaning out of stenosis in the spinal canal [facility] LUMBAR EPIDURAL INJECTION 12/20/2020 Dr Clifton RADIOFREQUENCY [...] Jluis Baer Early natural Mother's Sister Lorna gAee Mental illness Neg Hx Drug abuse Neg [...] Depression - At risk (07/13/2024) Received from [facility]k PHQ-2 Total Score: 3 REVIEW OF SYMPTOMS: [...] for Medication change (Remeron) documented in this encounterSt. Louis Behavioral Medicine [id number] Telephone encounter Note* Telephone Encounter - Flora Garcia - 12/25/2024 11:54 AM EST Sorry I forgot to add I scheduled her an appt. [facility] [id number] Miscellaneous Notes* Telephone Encounter - Flora Garcia - 12/25/2024 11:54 AM EST Sorry I forgot to add I scheduled her an appt. * Telephone Encounter - Bia Cao MD - 12/25/2024 11:48 AM EST Please call to check on her * Telephone Encounter - Flora Garcia - 12/25/2024 11:35 AM EST This is Angela Faraz. My phone number is [phone] for I am calling to let Dr Sutherland know that I fell on Wednesday night and was seen in, ER. Thank you very much, bye. documented in this encounterSt. Louis Behavioral Medicine [id number] Telephone encounter Note* Telephone Encounter - Bia Cao MD - 12/25/2024 11:48 AM EST Please call to check on her [facility] [id number] Telephone encounter Note* Telephone Encounter - Flora Garcia - 12/25/2024 11:35 AM EST This is Angela Ruth. My phone number is [phone] for I am calling to let Dr Sutherland know that I fell on Wednesday night and was seen in, ER. Thank you very much, bye. [facility] [id number] History of Present illness Narrative* Maria C Kramer MD - 12/19/2024 12:45 PM EST Images from the original note were not included. [address] [place] [id number] Patient: Angela Ruth Date of : 1945 [...] vertigo) Brain tumor (benign) ([facility]) Breast disorder 4 biopsies Bronchitis 01/01/2017 Cancer ([facility]) Basal cell Carpal tunnel syndrome [...] 07/07/2018 Performed by Alexander Leach MD at [facility] ENDOSCOPY COSMETIC SURGERY 1984 DISCECTOMY 1989 Partial L4-5 EGD 2001 EYE SURGERY 2014 FOOT SURGERY 2009 Reattachment of tendon left foot with bone graft HIP SURGERY 2003 Excision of bursa left hip HYSTERECTOMY 1983 INJECTION BLOCK EPIDURAL STEROID LUMBAR/SACRAL Left L 5,1 NR Left 12/20/2020 Performed by Shubham Clifton MD at [facility] BLOCK NERVE MEDIAL BRANCH right C 4/5,5/6 Right 05/22/2022 Performed by Shubham Clifton MD at [facility] BLOCK NERVE MEDIAL BRANCH right C 4/5,5/6 Right 04/17/2022 Performed by Shubham Clifton MD at [facility] INJECTION CAUDAL EPIDURAL WITH CATHETER, STEROID N/A 03/07/2018 Performed by Shubham Clifton MD at [facility] LARGE JOINT BURSA: bilat hip Bilateral 12/10/2017 Performed by Shubham Clifton MD at [facility] MEDIAL BRANCH NERVE BLOCK Bilateral L 4/5, 5/1 Bilateral 06/28/2017 Performed by Shubham Clifton MD at [facility] MEDIAL BRANCH NERVE BLOCK Right L 2/3, 3/4 Right 12/08/2019 Performed by Shubham Clifton MD at [facility] MEDIAL BRANCH NERVE BLOCK RIGHT L23 34 Right 01/19/2020 Performed by Shubham Clifton MD at [facility] SI JOINT Bilateral 04/09/2017 Performed by Shubham Clifton MD at [facility] SI JOINT Bilateral SI Joint Bilateral 05/31/2020 Performed by Shubham Clifton MD at [facility] SI JOINT Left SI JOint Left 01/06/2019 Performed by Shubham Clifton MD at [facility] SI JOINT Right SI Joint Right 06/09/2019 Performed by Shubham Clifton MD at [facility] SPINE TRANSFORAMINAL Left L 4, 5 NR Left 09/24/2017 Performed by Shubham Clifton MD at [facility] SPINE TRANSFORAMINAL Left L 5,1 Nroot Left 01/08/2023 Performed by Shubham Clifton MD at [facility] INJECTION SPINE TRANSFORAMINAL Right L 5,1 Nroot Right 11/27/2022 Performed by Shubham Clifton MD at [facility] INJECTION STEROID EPI 1 WITH SEDATION Left 5,1 NR Left 05/08/2019 Performed by Shubham Clifton MD at [facility] KNEE ARTHROSCOPY 2010, 2013 KNEE [...] 12/02/2018 Performed by Shubham Clifton MD at [facility] RADIO FREQUENCY ABLATION Left L 4/5, 5/1 Left 07/30/2017 Performed by Shubham Clifton MD at [facility] RADIO FREQUENCY ABLATION Left SI joint Left 03/31/2019 Performed by Shubham Clifton MD at [facility] RADIO FREQUENCY ABLATION Right L2/3, 3/4 Right 03/29/2020 Performed by Shubham Clifton MD at [facility] RADIOFREQUENCY ABLATION SPINAL Left Si joint Left 05/07/2017 Performed by Shubham Clifton MD at [facility] RADIOFREQUENCY ABLATION SPINAL Right C 4/5,5/6 Right 06/26/2022 Performed by Shubham Clifton MD at [facility] RADIOFREQUENCY ABLATION SPINAL RIGHT SI JOINT Right 05/21/2017 Performed by Shubham Clifton MD at [facility] RELEASE CARPAL TUNNEL Left 11/04/2021 [...] mg total) by mouth in the morning. dohoajo-jdyxjnpifnegz-jcfdoszr (EXCEDRIN MIGRAINE) 250-250-65 mg per tablet Take [...] caffeine as well as addressing constipation with vwii-nzq-kxovnrq agents. If no improvement can add beta [...] you for your understanding. documented in this encounterLutheran Hospital01-21-2025 Telephone encounter Note* Telephone Encounter - Bia Cao MD - 12/12/2024 3:29 PM EST Approvals with refills [facility] [id number] Miscellaneous Notes* Telephone Encounter - Bia Cao MD - 12/12/2024 3:29 PM EST Approvals with refills documented in this encounterSt. Louis Behavioral Medicine I[id number] History of Present illness Narrative* Bia Cao [...] This Visit Essential hypertension ([facility]) Overview Managed by dr cifuentes Age-related osteoporosis without current pathological fracture ([facility]) Other Visit Diagnoses Urinary frequency [...] the skin lesions today. documented in this encounterSt. Louis Behavioral Medicine [id number] History of Present illness Narrative* John Johnson [...] 07/07/2018 Performed by Alexander Leach MD at [facility] ENDOSCOPY COSMETIC SURGERY 1985 DISCECTOMY 1989 Partial L4-5 EGD 2001 EYE SURGERY 2014 FOOT SURGERY 2009 Reattachment of tendon left foot with bone graft HIP SURGERY 2003 Excision of bursa left hip HYSTERECTOMY 1984 INJECTION BLOCK EPIDURAL STEROID LUMBAR/SACRAL Left L 5,1 NR Left 12/20/2020 Performed by Shubham Clifton MD at [facility] BLOCK NERVE MEDIAL BRANCH right C 4/5,5/6 Right 05/22/2022 Performed by Shubham Clifton MD at [facility] BLOCK NERVE MEDIAL BRANCH right C 4/5,5/6 Right 04/17/2022 Performed by Shubham Clifton MD at [facility] CAUDAL EPIDURAL WITH CATHETER, STEROID N/A 03/07/2018 Performed by Shubham Clifton MD at [facility] LARGE JOINT BURSA: bilat hip Bilateral 12/10/2017 Performed by Shubham Clifton MD at [facility] MEDIAL BRANCH NERVE BLOCK Bilateral L 4/5, 5/1 Bilateral 06/28/2017 Performed by Shubham Clifton MD at [facility] MEDIAL BRANCH NERVE BLOCK Right L 2/3, 3/4 Right 12/08/2019 Performed by Shubham Clifton MD at [facility] MEDIAL BRANCH NERVE BLOCK RIGHT L23 34 Right 01/19/2020 Performed by Shubham Clifton MD at [facility] SI JOINT Bilateral 04/09/2017 Performed by Shubham Clifton MD at [facility] INJECTION SI JOINT Bilateral SI Joint Bilateral 05/31/2020 Performed by Shubham Clifton MD at [facility] INJECTION SI JOINT Left SI JOint Left 01/06/2019 Performed by Shubham Clifton MD at [facility] INJECTION SI JOINT Right SI Joint Right 06/09/2019 Performed by Shubham Clifton MD at [facility] INJECTION SPINE TRANSFORAMINAL Left L 4, 5 NR Left 09/24/2017 Performed by Shubham Clifton MD at [facility] INJECTION SPINE TRANSFORAMINAL Left L 5,1 Nroot Left 01/08/2023 Performed by Shubham Clifton MD at [facility] SPINE TRANSFORAMINAL Right L 5,1 Nroot Right 11/27/2022 Performed by Shubham Clifton MD at [facility] STEROID EPI 1 WITH SEDATION Left 5,1 NR Left 05/08/2019 Performed by Shubham Clifton MD at [facility] KNEE ARTHROSCOPY 2010, 2013 KNEE [...] 12/02/2018 Performed by Shubham Clifton MD at [facility] RADIO FREQUENCY ABLATION Left L 4/5, 5/1 Left 07/30/2017 Performed by Shubham Clifton MD at [facility] RADIO FREQUENCY ABLATION Left SI joint Left 03/31/2019 Performed by Shubham Clifton MD at [facility] RADIO FREQUENCY ABLATION Right L2/3, 3/4 Right 03/29/2020 Performed by Shubham Clifton MD at [facility] RADIOFREQUENCY ABLATION SPINAL Left Si joint Left 05/07/2017 Performed by Shubham Clifton MD at [facility] RADIOFREQUENCY ABLATION SPINAL Right C 4/5,5/6 Right 06/26/2022 Performed by Shubham Clifton MD at [facility] RADIOFREQUENCY ABLATION SPINAL RIGHT SI JOINT Right 05/21/2017 Performed by Shubham Clifton MD at [facility] RELEASE CARPAL TUNNEL Left 11/04/2021 [...] mouth in the morning., Disp: , Rfl: gzcthmr-pqyyfhfezfkre-ulmtptkk (EXCEDRIN MIGRAINE) 250-250-65 mg per tablet, Take [...] MD, MPH, [facility] [address] [address] Dept: [phone] FAX: [phone] documented in this encounterLutheran Hospital01-08-2025 Telephone encounter Note* Telephone Encounter - Bia Cao MD - 11/29/2024 3:27 PM EST Approvals with refills [facility] [id number] Miscellaneous Notes* Telephone Encounter - Bia Cao MD - 11/29/2024 3:27 PM EST Approvals [facility] Telephone encounter Note* Telephone Encounter - Bia Cao MD - 11/06/2024 2:55 PM EST Approvals with refills [facility] [id number] Miscellaneous Notes* Telephone Encounter - Bia Cao MD - 11/06/2024 2:55 PM EST Approvals with refills [facility] History of Present illness Narrative* Santo [...] (four) hours., Disp: 18 g, Rfl: 11 tvwblaekkx-peouezdupecsl-lxscuvau 50-325-40 MG tablet, Take 1 tablet by [...] 1952 APPENDECTOMY 1965 BREAST BIOPSY x4 - [id number] CHOLECYSTECTOMY 2002 EYE SURGERY 01/21/2023 retinal repair [facility] HEMANGIOMA EXCISION 1946 from upper back HYSTERECTOMY 1984 KNEE SURGERY Bilateral arthroscopic knee surgery x3 (Rx2, Lx1) ([id number]) LAPAROTOMY OOPHERECTOMY 1985 LUMBAR DISCECTOMY 1989 partial LUMBAR DISCECTOMY 01/14/2017 Microdiscetomy L5-S1 LUMBAR DISCECTOMY 07/03/2021 L1-2 partial discectomy, L1-2, L2-3 cleaning out of stenosis in the spinal canal [facility] LUMBAR EPIDURAL INJECTION 12/20/2020 Dr Clifton RADIOFREQUENCY [...] AM EST Voicemail left for Angela at [phone]. Call back number given. 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 My note was forward to Dr. Hoover for review. At this time we recommend follow up and new imaging in 1 year. Rose Velasquez, MSN, MARBLE SUPERVISOR, MANAGER SOCIAL WORK Certified Nurse Practitioner Work Phone: [phone] Miscellaneous Notes* Telephone Encounter - Rose Velasquez APRN.CNP - 10/06/2024 10:07 AM EST Voicemail left for Angela at [phone]. Call back number given. 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 My note was forward to Dr. Hoover for review. At this time we recommend follow up and new imaging in 1 year. Rose Velasquez, MSN, MARBLE SUPERVISOR, MANAGER SOCIAL WORK Certified Nurse Practitioner * Telephone Encounter - Jessica Ashley - 10/04/2024 3:18 PM EST General Call Caller : Angela Contact Reason for Call : Did you speak with Dr. Hoover regarding her most recent appt? Patient requesting return call ? Yes documented in this encounter11-13-2024 Telephone encounter Note * Telephone Encounter - Jessica Ashley - 10/04/2024 3:18 PM EST General Call Caller : Angela Contact Reason for Call : Did you speak with Dr. Hoover regarding her most recent appt? Patient requesting return call ? Yes 11-05-2024 History of Present illness Narrative* Rose Velasquez APRN.CNP - 09/26/2024 1:42 PM EST Images from the original note were not included. [facility] NEURO-ONCOLOGY OUTPATIENT CLINIC NOTE PURPOSE OF VISIT: Consultation requested by Dr. Hooevr for an opinion regarding meningioma and my [...] 20 mg capsule 20 mg once daily. pufhoqsjrwfmv-qryzaykakiapckigic-bmbciayydqwjf (MIDRIN) 65-100-325 mg per capsule 1 capsule [...] DATE OF EXAM: Sep 26 2024 12:29PM [employer] 0[facility] - MRI BRAIN WO/W IVCON / [...] petrous ridge presumed meningioma compared to 03/02/2024. Stucco Worker: ALLYSSA Transcribe Date/Time: Sep 26 2024 [...] - All questions were answered. Rose Velasquez APRN.MANAGER SOCIAL WORK Certified Nurse Practitioner cc: Donnell Hoover MD - Epic documented in this encounter11-05-2024 History of Present illness Narrative* Jessica Howell [...] 2024 TIME: 11:27 AM documented in this encounter09-23-2024 History of Present illness Narrative* Bia Cao [...] the past. [place] not currently have an coppersmith apprentice. SUBJECTIVE: MEDICATIONS: Current Outpatient Medications Medication Instructions albuterol HFA 90 mcg/act inhaler 2 puffs, Inhalation, Every 4 hours alendronate (FOSAMAX) 70 mg, Oral, Every 7 days amitriptyline (ELAVIL) 50 mg, Oral, Nightly Ascorbic Acid (vitamin C) 1000 MG tablet Every 24 hours aspirin 81 mg, Oral, Daily RT atorvastatin (LIPITOR) 40 mg, Oral, Daily buprenorphine (Butrans) 7.5 MCG/HR 1 patch, Transdermal, Weekly bmggioigvd-bjfmvsflglxqu-wubxoore 50-325-40 MG tablet 1 tablet, Oral, Every [...] provided. She does not currently have an coppersmith apprentice but is open to seeing one. A COVID-19 test was conducted today, which returned negative. She is advised to stay hydrated. If her condition deteriorates, a repeat COVID-19 test will be necessary. documented in this encounterSt. Louis Behavioral Medicine [id number] History of Present illness Narrative* Bia Cao [...] (Butrans) 7.5 MCG/HR 1 patch, Transdermal, Weekly ofemqedqyi-dmzxiglkrycjo-flmvzqbh 50-325-40 MG tablet 1 tablet, Oral, Every [...] 1953 APPENDECTOMY 1965 BREAST BIOPSY x4 - [id number] CHOLECYSTECTOMY 2002 EYE SURGERY 01/21/2023 retinal repair [facility] HEMANGIOMA EXCISION 194 from upper back HYSTERECTOMY 1984 KNEE SURGERY Bilateral arthroscopic knee surgery x3 (Rx2, Lx1) ([id number]) LAPAROTOMY OOPHERECTOMY 1985 LUMBAR DISCECTOMY 1990 partial LUMBAR DISCECTOMY 01/14/2017 Microdiscetomy L5-S1 LUMBAR DISCECTOMY 07/03/2021 L1-2 partial discectomy, L1-2, L2-3 cleaning out of stenosis in the spinal canal [facility] LUMBAR EPIDURAL INJECTION 12/20/2020 Dr Clifton RADIOFREQUENCY [...] Never Depression: At risk (07/13/2024) Received from [facility] PHQ-2 Total Score: 3 REVIEW OF SYMPTOMS: [...] 25 mg were renewed and sent to [facility] pharmacy. Follow-up The patient will follow up in 4 months. documented in this encounterSt. Louis Behavioral Medicine [id number] History of Present illness Narrative* Bia Cao [...] consulted with Dr. Romano, a urologist in [place], some time ago but has not soughturological [...] (Butrans) 7.5 MCG/HR 1 patch, Transdermal, Weekly ngftahchau-hlnuokxyhhxfj-lcqemrnx 50-325-40 MG tablet 1 tablet, Oral, Every [...] 1952 APPENDECTOMY 1965 BREAST BIOPSY x4 - [phone] CHOLECYSTECTOMY 2001 EYE SURGERY 01/21/2023 retinal repair [facility] HEMANGIOMA EXCISION 194 from upper back HYSTERECTOMY 1984 KNEE SURGERY Bilateral arthroscopic knee surgery x3 (Rx2, Lx1) ([id number]) LAPAROTOMY OOPHERECTOMY 1985 LUMBAR DISCECTOMY 1989 partial LUMBAR DISCECTOMY 01/14/2017 Microdiscetomy L5-S1 LUMBAR DISCECTOMY 07/03/2021 L1-2 partial discectomy, L1-2, L2-3 cleaning out of stenosis in the spinal canal [facility] LUMBAR EPIDURAL INJECTION 12/20/2020 Dr Clifton RADIOFREQUENCY [...] Depression: Not at risk (03/10/2024) Received from [facility] Lynk, [facility] PHQ-2 Total Score: 0 REVIEW OF SYMPTOMS: [...] prescribed by Dr. Márquez documented in this encounterSt. Louis Behavioral Medicine [id number] Instructions* Patient Instructions* Anson Ennis MD - 04/04/2024 12:35 PM EDT - obtain follow up MRI brain wwo in 6 months - please follow up with your poacher operator (we do not think the etiology of your hearing loss is due to your meningioma) - our team will notify Dr. Bia Cao regarding these findings; we recommend investigating other etiologies of imbalance in Mrs. Ruth documented in this encounter05-14-2024 Nurse Note* Josette Sheppard MA - 04/04/2024 11:29 AM EDT Additional intake questions: Has the patient had fever, nausea, vomiting, diarrhea, constipation, fatigue for > 1 week? No Does the patient have a decreased appetite? No Does patient want to see a Mentally Impaired Teacher? No (yes to any of above refer patient to schedulers for dietitian appointment) ) Does patient have any new or increased numbness or tingling of extremities? No Is patient interested in fertility information? No Does patient need any prescription refills? No Does patient have an advanced directive in place? Yes, no copy found in [facility] Patient referred to [facility] Electronically Signed By: Josette Sheppard MA 05-14-2024 Nurse Note* Josette Sheppard MA - 04/04/2024 11:29 AM EDT Additional intake questions: Has the patient had fever, nausea, vomiting, diarrhea, constipation, fatigue for > 1 week? No Does the patient have a decreased appetite? No Does patient want to see a Mentally Impaired Teacher? No (yes to any of above refer patient to schedulers for dietitian appointment) ) Does patient have any new or increased numbness or tingling of extremities? No Is patient interested in fertility information? No Does patient need any prescription refills? No Does patient have an advanced directive in place? Yes, no copy found in [facility] Patient referred to [facility] Electronically Signed By: Josette Sheppard MA documented in this encounter05-14-2024 History of Present illness Narrative* Donnell Hoover MD - 04/04/2024 10:30 AM EDT Images from the original note were not included. SECTION OF SKULL BASE SURGERY MINIMALLY INVASIVE CRANIAL BASE & PITUITARY SURGERY PROGRAM Jessica Caro [facility] [place] CC: Patient Care Team: Bia Cao as PCP ([facility]) Corey Chacon MD as NI Referring Team [...] our skull base team advance practice providers ([place] preference). - follow up with poacher operator for hearing loss which is unrelated [...] Patient is accompanied by her granddaughter (her driver salesman) and great grand daughter). The patient is [...] contrast and shows a 1.2 cm R GMAT TUTOR contrast-enhancing lesion concerning for either schwannoma or meningioma- no associated mass effect or edema. The patient takes ASA 81 mg daily for cardioprotection per her PCP. The patient has been using a cane for the last 5-6 years. The patient reports that ~6 weeks ago, she walked into her garage door and fell. The patient has not seen an poacher operator or a vestibular therapist. Past Medical [...] 20 mg capsule 20 mg once daily. bpooyqpawrxba-jrwbncmkjceonfdjgv-jgnqzigpshwhp (MIDRIN) 65-100-325 mg per capsule 1 capsule [...] contrast and shows a 1.2 cm R GMAT TUTOR contrast-enhancing lesion extra-axial mass arising from the right posterior petrous ridge with no significant mass effect and not abutting the right vestibular cochlear complex. documented in this encounter05-07-2024 Telephone encounter Note * Telephone Encounter - Etelvina Trujillo - 03/28/2024 10:11 AM EDT Called patient to schedule an appointment. No ans/left message to call the office back. Appointment scheduled: 04/04/2024 10:30 AM (Arrive by 10:15 AM) Donnell Hoover MD [facility] [place] RAMAN Alonso 05-07-2024 Miscellaneous Notes* Telephone Encounter - Etelvina Trujillo - 03/28/2024 10:11 AM EDT Called patient to schedule an appointment. No ans/left message to call the office back. Appointment scheduled: 04/04/2024 10:30 AM (Arrive by 10:15 AM) Donnell Hoover MD [facility] [place] RAMAN Alonso * Telephone Encounter - Rose Velasquez APRN.CNP - 03/28/2024 9:55 AM EDT Time Frame: First available Provider: Kiko Landrum Soni Referring: Corey Chacon MD Images to be requested [facility] Dx: Right CPA mass Patient: Angela Ruth Address: Angela Ruth [id number] [place] [address] Per Triage: HISTORY OF PRESENT ILLNESS Angela [...] extracranial soft tissues are unremarkable. Rose Velasquez APRN.MANAGER SOCIAL WORK March 28, 2024 * Telephone Encounter - Shelli Fletcher - 03/24/2024 4:55 PM EDT Referral source: [facility] Reason for visit: consideration of gamma knife for 1.2 cm enhancing lesion at right cerebelloponitine angle with leading differential including vestibular schwannoma and meningioma External records: Sent with referral and pulled from [facility] Triage: Required, forwarded to [facility] by telephone encounter sent to [facility] Scheduling Triage. Financial clearance: Not required to schedule documented in this encounter05-07-2024 Telephone encounter Note * Telephone Encounter - Rose Velasquez APRN.MANAGER SOCIAL WORK - 03/28/2024 9:55 AM EDT Time Frame: First available Provider: Kiko Landrum Soni Referring: Corey Chacon MD Images to be requested from [facility] Dx: Right CPA mass Patient: Angela Ruth Address: Angela Ruth [phone] [place] [address] Dr [facility] of [facility] [address] Per Triage: HISTORY OF PRESENT ILLNESS Angela [...] extracranial soft tissues are unremarkable. Rose Velasquez APRN.MANAGER SOCIAL WORK March 28, 2024 05-03-2024 Telephone encounter Note* Telephone Encounter - Shelli Fletcher - 03/24/2024 4:55 PM EDT Referral source: Corey Chacon MD ([facility]) Reason for visit: consideration of gamma knife for 1.2 cm enhancing lesion at right cerebelloponitine angle with leading differential including vestibular schwannoma and meningioma External records: Sent with referral and pulled from [facility] Triage: Required, forwarded to [facility] by telephone encounter sent to [facility] Scheduling Triage. Financial clearance: Not required to schedule Evaluation note* Diagnosis General weakness- Primary Other malaise and fatigue History of falling documented in this encounter [facility] HealthcareEvaluation note* Diagnosis Mixed hyperlipidemia (CMS/HCC)- Primary Mixed hyperlipidemia Stress incontinence of urine documented in this encounter [facility] HealthcareEvaluation note* Diagnosis General weakness- Primary Other malaise and fatigue History of falling documented in this encounter [facility] HealthcareEvaluation note* Diagnosis General weakness- Primary Other malaise and fatigue History of falling documented in this encounter [facility] HealthcareEvaluation note* Diagnosis Brain mass [G93.89]- Primary Unspecified condition of brain documented in this encounter Evaluation note* Diagnosis Intracranial meningioma (HCC)- Primary Benign neoplasm of cerebral meninges Sensorineural hearing loss (SNHL) of right ear, unspecified hearing status on contralateral side Dizziness Dizziness and giddiness documented in this encounter Evaluation note* Diagnosis Intracranial meningioma (HCC)- Primary Benign neoplasm of cerebral meninges Benign neoplasm of meninges (HCC) Benign neoplasm of cerebral meninges documented in this encounter Evaluation note* Diagnosis Benign neoplasm of meninges (HCC)- Primary Benign neoplasm of cerebral meninges Dizziness Dizziness and giddiness documented in this encounter Evaluation note* Diagnosis Benign neoplasm of meninges (HCC) Benign neoplasm of cerebral meninges documented in this encounter Evaluation note* Diagnosis Dermatophytosis of nail- Primary Dystrophic nail Other specified disease of nail Pain around toenail, right foot Pain around toenail, left foot documented in this encounter [facility] HealthcareEvaluation note* Diagnosis Hoarse- Primary Dysphonia Purulent postnasal drainage Primary insomnia Persistent disorder of initiating or maintaining sleep Gastroesophageal reflux disease without esophagitis Esophageal reflux documented in this encounter [facility] HealthcareEvaluation note* Diagnosis Hyperlipidemia, unspecified hyperlipidemia type ([facility]/HCC) documented in this encounter [facility] HealthcareEvaluation note* Diagnosis Urinary frequency- Primary Dysuria Chronic idiopathic constipation Unspecified constipation Chronic right-sided thoracic back pain Chronic right-sided thoracic back pain documented in this encounter [facility] HealthcareEvaluation note* Diagnosis Acute cystitis without hematuria- Primary documented in this encounter [facility] HealthcareEvaluation note* Diagnosis Acute bronchitis, unspecified organism- Primary Seasonal allergic rhinitis due to pollen documented in this encounter [facility]* Diagnosis Anemia, unspecified type- Primary documented in this encounter [facility] HealthcareEvaluation note* Diagnosis Hypothyroidism, unspecified type- [...] [facility]) documented in this encounter [facility] HealthcareEvaluation note* Diagnosis Acute cystitis without [...] depressive disorder, single episode, in full remission ([facility]) Major depressive disorder, 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 Fall, subsequent encounter Gastroesophageal reflux disease without esophagitis Esophageal reflux documented in this encounter [facility]* Diagnosis Hematuria, unspecified type documented in this encounter [facility]* Diagnosis Acute cystitis with hematuria- Primary documented in this encounter [facility]* Diagnosis Mixed hyperlipidemia ([facility]) Mixed hyperlipidemia Anxiety Anxiety state, [...] [facility] Diagnosis Essential hypertension ([facility])- Primary Unspecified essential hypertension documented in this encounter [facility]* Diagnosis Urge incontinence- Primary Frequent UTI Urinary tract infection, site not specified [facility] Diagnosis Urge incontinence- Primary Frequent UTI Urinary tract infection, site not specified Osteoporosis, unspecified osteoporosis type, unspecified pathological fracture presence- Primary [facility]* Diagnosis Moderate persistent asthma, unspecified whether complicated ([facility]) documented in this encounter [facility] HealthcareEvaluation note* Diagnosis Intractable migraine with aura without status migrainosus ([facility])- Primary Fall, subsequent encounter Essential hypertension ([facility]) Unspecified essential hypertension documented in this encounter [facility] HealthcareEvaluation note* Diagnosis Urge incontinence- Primary Frequent UTI Urinary tract infection, site not specified Osteoporosis, unspecified osteoporosis type, unspecified pathological fracture presence- Primary [facility] Diagnosis Urge incontinence- Primary Frequent UTI Urinary tract infection, site not specified Osteoporosis, unspecified osteoporosis type, unspecified pathological fracture presence- Primary Hypothyroidism, unspecified type Age-related osteoporosis without current pathological fracture Vitamin D deficiency documented in this encounter [facility]* Diagnosis Urge incontinence- Primary Frequent UTI Urinary tract infection, site not specified Kidney stones- Primary Calculus of kidney Urge incontinence Osteoporosis, unspecified osteoporosis type, unspecified pathological fracture presence- Primary documented in this encounter [facility]* Diagnosis Urge incontinence- Primary Frequent UTI Urinary tract infection, site not specified Kidney stones- Primary Calculus of kidney Urge incontinence documented in this encounter [facility]Evaluation [facility]* Diagnosis Primary insomnia Persistent disorder of initiating or maintaining sleep Major depressive disorder, single episode, in full remission Major depressive disorder, 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 documented in this encounter [facility] HealthcareEvaluation note* Diagnosis Stage 3b chronic kidney disease (CKD) ([facility]) Major depressive disorder, single episode, in full remission Major depressive disorder, 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 Age-related osteoporosis without current pathological fracture Moderate persistent asthma without complication ([facility]) Diastolic dysfunction with chronic heart failure (HCC) Chronic idiopathic constipation Unspecified constipation Mild intermittent asthma without complication ([facility]) Interstitial pulmonary disease, unspecified ([facility]) documented in this encounter [facility]* Diagnosis Urge incontinence- Primary Frequent UTI Urinary tract infection, site not specified Kidney stones- Primary Calculus of kidney Urge incontinence Osteoporosis, unspecified osteoporosis type, unspecified pathological fracture presence- Primary documented in this encounter [facility]* Diagnosis Stage 3b chronic kidney disease (CKD) ([facility]) Major depressive disorder, single episode, in full [...] Diagnosis Stage 3b chronic kidney disease (CKD) ([facility]-HCC) Major depressive disorder, single episode, in full [...] family. Treatment calendar given. documented in this encounterProTr[facility] CampusFuturaMedia SystemInstructionsNot on file documented in this encounterProMediFuturaMedia SystemInstructionsNot on file documented in this encounterProMediFuturaMedia SystemInstructionsNot on file documented in this encounterProMediFuturaMedia SystemInstructionsNot on file documented in this encounterProMediFuturaMedia SystemInstructionsNot on file documented in this encounterProMediFuturaMedia SystemInstructionsNot on file documented in this encounterProMediFuturaMedia SystemInstructionsNot on file documented in this encounterProMediFuturaMedia SystemInstructionsNot on file documented in this encounterProMediMc[facility] Hospital SystemInstructionsNot on file documented in this encounterProGreen Cross [facility] SystemInstructionsNot on file documented in this encounterProGreen Cross Hospital SystemReason for referral (narrative)* Consultation (Routine) - AuthorizedSpecialtyDiagnoses / Procedures Referred By ContactReferred To ContactUrology Diagnoses Urinary frequency Procedures IA OFFICE/OUTPATIENT NEW HIGH MDM 60 MINUTES Bia Cao MD [address] [place] [address] Maria C Kramer MD [address] [place] [address] Referral IDStatusReasonart DateExpiration DateVisits RequestedVisits [id number] Specialty Services Required / [facility] HealthcareReason for visit Narrative* Episode Based Medications (Routine) - AuthorizedSpecialtyDiagnoses / ProceduresReferred By ContactReferred To Contact Diagnoses Osteoporosis, unspecified osteoporosis type, unspecified pathological fracture presence Procedures IA ROMOSOZUMAB INJECTION John Johnson MD [address] [facility] [place] [address] Phone: tel: fax: Meggan Hunter [facility] - Medical Oncology [address] [place] [phone] Phone: tel: fax: Referral IDStatusReasonStart DateExpiration DateVisits RequestedVisits [id number]/15/20251/212 [facility] System Summary Purpose Family History No Family History Records FoundNo Family History Records FoundNo Family History Records FoundNo Family History Records FoundNo Family History Records FoundNo Family History Records FoundNo Family History Records FoundNo Family History Records FoundNo Family History Records FoundNo Family History Records Found Advance Directives No Advanced Directives Records FoundDocuments on File TypeDate RecordedPatient RepresentativeExplanationDurable Power of Orthophotography Technician 07/16/2021 3:45 PMLiving Will07/16/2021 3:40 PMDate ActivatedDate Inactivated Comments03/02/2023 4:15 AM03/03/2023 3:57 PMDate ActivatedDate InactivatedComments 07/03/2021 9:57 AM07/10/2021 6:07 PMDate ActivatedDate InactivatedComments 01/04/2018 4:32 PM2 6:44 PMDate ActivatedDate InactivatedComments 01/14/2017 8:37 AM01/15/2017 5:28 PMTypeDate RecordedPatient Mottler Operator ExplanationDurable Power of Attorney07/16/2021 3:45 PMLiving Will07/16/2021 [...] STEM W/O W/CONTRAST MATERIAL Donnell Hoover MD [address] [place] [address] [facility] [place] [address] Referral IDStatusReasonStart DateExpiration DateVisits RequestedVisits [id number] Review Auto-Generated Referral /[id number] / ProceduresReferred By ContactReferred To ContactMR IMAGING Diagnoses Benign neoplasm of meninges (HCC) Procedures MRI BRAIN WO/W IVCON MRI BRAIN BRAIN STEM W/O W/CONTRAST MATERIAL Rose Velasquez APRN.CNP [address] [place] [id number] [place] [address] Referral IDStatusReasonStart DateExpiration DateVisits RequestedVisits [id number] Request Auto-Generated Referral /[id number] IDStatusReasonStart DateExpiration DateVisits RequestedVisits [id number] Auto-Generated Referral / Additional Source Comments INFORMATION SOURCE (unrecogn ized section and content) DATE CREATED AUTHOR 05/16/2018 [facility] DATE CREATED AUTHOR AUTHOR'S ORGANIZ ATION 06/21/2019 [facility] DATE CREATED AUTHOR AUTHOR'S ORGANIZ ATION 11/13/2022 [facility] DATE CREATED AUTHOR AUTHOR'S ORGANIZ ATION 12/07/2022 [facility] Internal Controls Manager DATE CREATED AUTHOR AUTHOR'S ORGANIZ ATION 04/21/2025 [facility] DATE CREATED AUTHOR AUTHOR'S ORGANIZ ATION 06/15/2025 [facility] DATE CREATED AUTHOR AUTHOR'S ORGANIZ ATION 07/12/2025 [facility] DATE CREATED AUTHOR AUTHOR'S ORGANIZ ATION 09/07/2025 [facility] DATE CREATED AUTHOR AUTHOR'S ORGANIZ ATION 09/30/2025 [facility] DATE CREATED AUTHOR AUTHOR'S ORGANIZ ATION 10/02/2025 [facility] Reason for Visit (unrecogniz ed section and content) ReasonCommentsInjectionevenitySpecialtyDiagnoses / ProceduresReferred By Contact Referred To Contact Diagnoses Osteoporosis, unspecified osteoporosis type, unspecified pathological fracture presence Procedures IA ROMOSOZUMAB INJECTION John Johnson MD [address] [facility] [place] [address] Phone: tel: fax: Meggan [facility] - Medical Oncology [address] [place] [phone] Phone: tel: fax: Referral IDStatusReasonStart DateExpiration DateVisits RequestedVisits [id number]/[id number]/[id number] InfusionEvenitySpecialtyDiagnoses / ProceduresReferred By ContactReferred To ContactPhysical Therapy Diagnoses Muscle weakness (generalized) Procedures TREATMENT Bia Cao MD [address] [place] [address] Jonny Salazar, PT [address] [place] [address] Referral IDStatusReasonStrollinsford DateExpiration DateVisits RequestedVisits [id number]/17/20247/15/[id number] RefillReason CommentsReceived Outside Medical RecordsExternal referral to Neurological InstitutetriageNcomanche [facility] Triage CallAppointmentReasonCommentsConsultReasonComments New PatientIntracranial MeningiomaReasonCommentsRadiology MRISpecialtyDiagnoses / ProceduresReferred By ContactReferred To ContactMR IMAGING Diagnoses Benign neoplasm of meninges (HCC) Procedures MRI BRAIN WO/W IVCON MRI BRAIN BRAIN STEM W/O W/CONTRAST MATERIAL Donnell Hoover MD [address] [place] [address] Mr Imaging [facility] Referral [facility]StatusRe[facility] DateExpiration DateVisits RequestedVisits [id number] Auto-Generated Referral /[id number] QuestionReasonCommentsIngrown Toenail Established pt presents today for [...] By ContactReferred To ContactOtolaryngology Diagnoses Hoarse Procedures IA OFFICE/OUTPATIENT NEW HIGH MDM 60 MINUTES Tae Hardy, TIESHA [address] [place] [address] Phone: tel: fax: Katerin Alvarado MD [address] [facility] [address] [place] [address] Phone: tel: fax: Referral IDStatusReasonStart DateExpiration DateVisits RequestedVisits [id number] Specialty Services Required /[id number] ThroatCoughReasonCommentsFollow-up1 month follow ezQshaedFffrqpidWapacu-wrKwgjxxVpkrtociWfuoya-jwTbdVsvavpPphft Date Commentsoutgoing rodopzht62/17/2025ReasonCommentsInjectionEvenity Care Teams (unrecognized sec tion and content) Team MemberRelationshipSpecialtyStart DateEnd Date Jacob Viveros PCP - [employer]11/22/22 Bia Cao MD [address] [place] [address] PCP - Generalmily Medicine04/29/23Team MemberRelationshipSpecialtyStart DateEnd Date Jacob Viveros PCP - [employer]11/22/22 Bia Cao MD [address] [place] [address] PCP - GeneralFamily Medicine04/29/23Team MemberRelationshipSpecialtyStart DateEnd Date Jacob Viveros PCP - [employer]11/22/22 Bia Cao MD [address] [place] [address] PCP - GeneralFamily Medicine04/29/23Team MemberRelationshipSpecialtyStart DateEnd Date Jacob Viveros Anny PCP - [employer]11/22/22 Bia Cao MD [address] [place] [address] PCP - GeneralFamily Medicine04/29/23Team MemberRelationshipSpecialtyStart DateEnd Date Jacob Viveros Anny PCP - [employer]11/22/22 Bia Cao MD [address] [place] [address] PCP - Generalmily Medicine04/29/23Team MemberRelationshipSpecialtyStart DateEnd Date Jacob Viveros Anny PCP - [employer]11/22/22 Bia Cao MD [address] [place] [address] PCP - Generalmily Medicine04/29/23Team MemberRelationshipSpecialtyStart DateEnd Date (Hist), No Pcp PCP - Ozgebnr47/14/17 Corey Chacon MD [address] [place] [address] NI Referring TeamNeurosurgery03/24/24Team MemberRelationshipSpecialtyStart DateEnd Date (Hist), No Pcp PCP - Lqnzrat08/14/17 Corey Chacon MD [address] [place] [address] NI Referring TeamNeurosurgery03/24/24Team MemberRelationshipSpecialtyStart DateEnd Date (Hist), No Pcp PCP - Vrqxwvx87/14/17 Corey Chacon MD [address] [address] NI Referring TeamNeurosurgery/02/12Team MemberRelationshipSpecialtyStart DateEnd Date (Hist), No Pcp PCP - Tbpgbxh98/14/17 Corey Chacon MD NI Referring TeamNeurosurgery/02/12Team MemberRelationshipSpecialtyStart DateEnd Date (Hist), No Pcp PCP - Mmhkjmz82/14/17 Corey Chacon MD NI Referring TeamNeurosurgery03/24/24Team MemberRelationshipSpecialtyStart DateEnd Date (Hist), No Pcp PCP - Wuqiort63/14/17 Corey Chacon MD NI Referring TeamNeurosurgery03/24/24Team MemberRelationshipSpecialtyStart DateEnd Date Jacob Viveros PCP - [employer]11/22/21 Bia Cao MD [address] [place] [address] PCP - GeneralFamily Medicine04/29/23Team MemberRelationshipSpecialtyStart DateEnd Date Jacob Viveros PCP - [employer]11/22/21 Bia Cao MD [address] [place] [address] PCP - GeneralFamily Medicine04/29/23Team MemberRelationshipSpecialtyStart DateEnd Date Jacob Viveros PCP - [employer]11/22/21 Bia Cao MD [address] [place] [facility] [address] PCP - GeneralFamily Medicine04/29/23Team MemberRelationshipSpecialtyStart DateEnd Date Jacob Viveros PCP - [employer]11/22/21 Bia Cao MD [address] [place] [facility] [address] PCP - GeneralFamily Medicine04/29/23Team MemberRelationshipSpecialtyStart DateEnd Date Jacob Viveros PCP - [employer]11/22/21 Bia Cao MD [address] [place] [facility] [place] [address] PCP - GeneralFamily Medicine04/29/23Team MemberRelationshipSpecialtyStart DateEnd Date Jacob Viveros PCP - [employer]11/22/21 Bia Cao MD [address] [place] [facility] [place] [address] PCP - GeneralFamily Medicine04/29/23Team MemberRelationshipSpecialtyStart DateEnd Date Jacob Viveros PCP - [employer]11/22/21 Bia Cao MD [address] [place] [facility] [address] PCP - GeneralFamily Medicine04/29/23Team MemberRelationshipSpecialtyStart DateEnd Date Jacob Viveros PCP - [employer]11/22/21 Bia Cao MD [address] [facility] [place] [address] PCP - GeneralFamily Medicine04/29/23Team MemberRelationshipSpecialtyStart DateEnd Date Jacob Viveros PCP - [employer]11/22/21 Bia Cao MD [address] [facility] [place] [address] PCP - GeneralFamily Medicine04/29/23Team MemberRelationshipSpecialtyStart DateEnd Date Bia Cao MD PCP - GeneralFamily Medicine02/05/23Team MemberRelationshipSpecialtyStart DateEnd Date Bia Cao MD PCP - GeneralFamily Medicine02/05/23Team MemberRelationshipSpecialtyStart DateEnd Date Bia Cao MD [address] [facility] [place] [address] PCP - Generalmily Medicine04/29/23 Bia Cao MD [address] [facility] [place] [address] PCP - [employer]11/22/21Team MemberRelationshipSpecialtyStart DateEnd Date Bia Cao MD [address] [facility] [place] [address] PCP - GeneralFamily Medicine04/29/23 Bia Cao MD [address] [facility] [place] [address] PCP - [employer]11/22/21Team MemberRelationshipSpecialtyStart DateEnd Date Bia Cao MD [address] [facility] [place] [address] PCP - Generalmily Medicine04/29/23 Bia Cao MD [address] [place] [facility] [place] [address] PCP - [employer]11/22/21Team MemberRelationshipSpecialtyStart DateEnd Date Bia Cao MD [address] [facility] [place] [address] PCP - [facility] Medicine04/29/23 Bia Cao MD [address] [facility] [place] [address] PCP - [employer]11/22/21Team MemberRelationshipSpecialtyStart DateEnd Date Bia Cao MD PCP - Generalmily Medicine02/05/23Team MemberRelationshipSpecialtyStart DateEnd Date Bai Cao MD PCP - Generalmily Medicine02/05/23Team MemberRelationshipSpecialtyStart DateEnd Date Bia Cao MD [address] [place] [address] [facility] - [facility]04/29/23 Bia Cao MD [address] [place] [address] PCP - [employer]11/22/21Team MemberRelationshipSpecialtyStart DateEnd Date Bia Cao MD [address] [place] [address] PCP - Generalmily Medicine04/29/23 Bia Cao MD [address] [place] [address] PCP - [employer]11/22/21Team MemberRelationshipSpecialtyStart DateEnd Date Bia Cao MD [address] [place] [address] PCP - [facility] Medicine04/29/23 Bia Cao MD [address] [place] [address] PCP - [employer]11/22/21Team MemberRelationshipSpecialtyStart DateEnd Date Bia Cao MD [address] [place] [address] PCP - Generalmily Medicine04/29/23 Bia Cao MD [address] [place] [address] PCP - [employer]11/22/21Team MemberRelationshipSpecialtyStart DateEnd Date Bia Cao MD [address] [place] [address] PCP - Generalmily Medicine04/29/23 Bia Cao MD [address] [place] [address] PCP - [employer]11/22/21Team MemberRelationshipSpecialtyStart DateEnd Date Bia Cao MD [address] [place] [address] PCP - GeneralFamily Medicine04/29/23 Bia Cao MD [address] [facility] [place] [address] PCP - [employer]11/22/21Team MemberRelationshipSpecialtyStart DateEnd Date Bia Cao MD [address] [facility] [place] [address] PCP - GeneralFamily Medicine04/29/23 Bia Cao MD [address] [facility] [place] [address] PCP - [employer]11/22/21Team MemberRelationshipSpecialtyStart DateEnd Date Bia Cao MD [address] [facility] [place] [address] PCP - GeneralFamily Medicine04/29/23 Bia Cao MD [address] [facility] [place] [address] PCP - [employer]11/22/21Team MemberRelationshipSpecialtyStart DateEnd Date Bia Cao MD [address] [facility] [place] [address] PCP - GeneralFamily Medicine04/29/23 Bia Cao MD [address] [place] [address] PCP - [employer]11/22/21Team MemberRelationshipSpecialtyStart DateEnd [facility] Bia Cao MD [address] [place] [address] PCP - GeneralFamily Medicine04/29/23 Bia Cao MD [address] [place] [address] PCP - [employer]11/22/21Team MemberRelationshipSpecialtyStart DateEnd [facility] Bia Cao MD PCP - GeneralFamily Medicine02/05/23Team MemberRelationshipSpecialtyStart DateEnd Date Bia Cao MD PCP - GeneralFamily Medicine02/05/23Team MemberRelationshipSpecialtyStart DateEnd Date Bia Cao MD [address] [place] [address] PCP - GeneralFamily Medicine04/29/23 Bia Cao MD [address] [place] [address] PCP - [employer]11/22/21Team MemberRelationshipSpecialtyStart DateEnd Date Bia Cao MD PCP - GeneralFamily Medicine02/05/23Team MemberRelationshipSpecialtyStart DateEnd Date Bia Cao MD PCP - GeneralFamily Medicine02/05/23Team MemberRelationshipSpecialtyStart DateEnd Date Bia Cao MD PCP - GeneralFamily Medicine02/05/23Team MemberRelationshipSpecialtyStart DateEnd Date Bia Cao MD PCP - GeneralFamily Medicine02/05/23Team MemberRelationshipSpecialtyStart DateEnd Date Bia Cao MD [address] [place] [address] PCP - GeneralFamily Medicine04/29/23 Bia Cao MD [address] [place] [address] PCP - [employer]11/22/21Team MemberRelationshipSpecialtyStart DateEnd Date Bia Cao MD PCP - GeneralFamily Medicine02/05/23Team MemberRelationshipSpecialtyStart DateEnd Date Bia Cao MD PCP - GeneralFamily Medicine02/05/23Team MemberRelationshipSpecialtyStart DateEnd Date Bia Cao MD PCP - GeneralFamily Medicine02/05/23Team MemberRelationshipSpecialtyStart DateEnd Date Bia Cao MD PCP - GeneralFamily Medicine02/05/23Team MemberRelationshipSpecialtyStart DateEnd Date Bia Cao MD [address] [place] [address] PCP - GeneralFamily Medicine04/29/23 Bia Cao MD [address] [facility] [place] [address] PCP - [employer]11/22/21Team MemberRelationshipSpecialtyStart DateEnd Date Bia Cao MD [address] [facility] [place] [address] PCP - GeneralFamily Medicine04/29/23 Bia Cao MD [address] [facility] [place] [address] PCP - [employer]11/22/21Team MemberRelationshipSpecialtyStart DateEnd Date Bia Cao MD [address] [facility] [place] [address] PCP - GeneralFamily Medicine04/29/23 Bia Cao MD [address] [facility] [place] [address] PCP - [employer]11/22/21Team MemberRelationshipSpecialtyStart DateEnd Date Bia Cao MD PCP - GeneralFamily Medicine02/05/23Team MemberRelationshipSpecialtyStart DateEnd Date Bia Cao MD [address] [place] [address] PCP - GeneralFamily Medicine04/29/23 Bia Cao MD [address] [facility] [place] [address] PCP - [employer]11/22/21Team MemberRelationshipSpecialtyStart DateEnd Date Bia Cao MD PCP - GeneralFamily Medicine02/05/23Team MemberRelationshipSpecialtyStart DateEnd Date Bia Cao MD PCP - GeneralFamily Medicine02/05/23Team MemberRelationshipSpecialtyStart DateEnd Date Bia Cao MD [address] [facility] [place] [address] PCP - GeneralFamily Medicine04/29/23 Bia Cao MD [address] [facility] [place] [address] PCP - [employer]11/22/21Team MemberRelationshipSpecialtyStart DateEnd Date Bia Cao MD [address] [facility] [place] [address] PCP - GeneralFamily Medicine04/29/23 Bia Cao MD [address] [facility] [place] [address] PCP - [employer]11/22/21 Source Comments (unrecognize d section and content) In the event this informatio n is protected by the [facility] Confidentiality of Alcohol and Drug Abuse Patient Records regulations: The Federal rules restrict any use of the information to criminally investigate or prosecute any alcohol or drug abuse patient.In the event this information is protected by the Federal Confidentiality of Alcohol and Drug Abuse Patient Records regulations: The Federal rules restrict any use of the information to criminally investigate or prosecute any alcohol or drug abuse patient.In the event this information is protected by the Federal Confidentiality of Alcohol and Drug Abuse Patient Records regulations: The Federal rules restrict any use of the information to criminally investigate or prosecute any alcohol or drug abuse patient.In the event this information is protected by the Federal Confidentiality of Alcohol and Drug Abuse Patient Records regulations: The Federal rules restrict any use of the information to criminally investigate or prosecute any alcohol or drug abuse patient.In the event this information is protected by the Federal Confidentiality of Alcohol and Drug Abuse Patient Records regulations: The Federal rules restrict any use of the information to criminally investigate or prosecute any alcohol or drug abuse patient.In the event this information is protected by the Federal Confidentiality of Alcohol and Drug Abuse Patient Records regulations: The Federal rules restrict any use of the information to criminally investigate or prosecute any alcohol or drug abuse patient. FOR RECORDS PERTAINING TO PATIENTS WHO ARE [...] THE PRIMARY CLINICAL RECORDS. [facility] [employer] [facility]. provides no warranty or guarantee of the accuracy or completeness of information in this document.
[2025-11-19 08:50] VITALS: BP 116/49; PULSE 69; TEMP 36.7; O2SAT 97
[2025-11-19 09:17] VITALS: BP 141/64; BP 151/69; PULSE 72; PULSE 73; O2SAT 96; O2SAT 97
[2025-11-19] MEDS: IOHEXOL 240 MG/ML - 10 ML VIAL 24 MG INJ (09:21)
[2025-11-19] MEDS: 0.9 % SODIUM CHLORIDE 10 ML SYRINGE - SALINE FLUSH INJ (09:21)
[2025-11-19] MEDS: METHYLPREDNISOLONE ACETATE 80 MG/ML VIAL INJ (09:21)
[2025-11-19] MEDS: LIDOCAINE HCL 2% 400 MG/20 ML MDV INJ (09:21)
[2025-11-19] MEDS: BUPIVACAINE HCL 0.25% PF 25 MG/10 ML VIAL INJ (09:21)
--- NOTE | 2025-11-19 09:29 | P.ON_ITS ---
Date of procedure: 11/19/25 Pre-op diagnosis: Pain due to lumbar stenosis with neurogenic claudication Post-op diagnosis: same as pre-op Procedure: Procedure: Right L4-5, L5-S1 transforaminal epidural steroid injection Medications: Bupivacaine 0.25% 2cc, lidocaine 2% 1cc, depomedrol 80mg The patient was seen and examined in the preoperative holding area.? Informed consent was obtained and placed on the chart.? Patient was brought to the medical procedure unit and placed in the prone position where a timeout was completed verifying the correct patient, procedure site, position, and planned special equipment using sterile aseptic technique.? Under direct fluoroscopic visualization a 25-gauge Quincke tipped spinal needle was advanced to the designated neural foramen where contrast dye was injected to show adequate spread.? The needle was inserted at level right L4-5. There was no evidence of vascular or adverse uptake.? Epidural spread was appreciated.? The above- mentioned injectate was then placed in a 1.5 mL aliquot preceded by negative aspiration.? The needle was removed. The needle was inserted and the procedure repeated at level right L5-S1.? The surgery site was covered.? Patient was taken to the postprocedural recovery area and monitored for an appropriate length of time before found suitable for discharge in the accompaniment of a responsible adult. Anesthesia: Local Surgeon: Adelfo Hansen Pathology: none sent Condition: stable Disposition: no change
== END 2025-11-19 10:33 | disposition home or self-care (01) ==
PROVIDERS: PCP Family Medicine; Visit Provider Anesthesiology
DX: M48.062 Spinal stenosis, lumbar region with neurogenic claudication (principal); G89.29 Other chronic pain
CPT/HCPCS: 64483; 64484; J0665; J1010; Q9966